=== PATIENT | male | born 1960 | race Caucasian/White ===

== ENCOUNTER 2023-03-04 08:56 | Outpatient (OUT) | payer BC, SELFPAY ==
--- NOTE | 2023-03-04 09:07 | XR_ITS ---
The [address] [address] Patient Name: JATIN KOCH MRN: [id number] date: 1960 Sex: M Assigned Patient Location: [facility] Current Patient Location: [facility] Accession/Order Number: [id number] Exam Date: 03/04/2023 09:20 Report Date: 03/04/2023 09:42 At the request of: JOSÉ LUIS SILVA Procedure: XR thoracic spine 3V EXAMINATION: XR thoracic spine 3V HISTORY: Unspecified Dorsalgia M54.9 ; chronic mid back pain increasing in severity COMPARISON: No relevant comparison available. FINDINGS: BONES: No significant spondylosis, scoliosis, fracture, or visible bony lesion. DISC SPACES: Multilevel mild disc space narrowing and small endplate degenerative osteophytes. PARASPINOUS: Negative. No paraspinous abnormality is seen. OTHER: Negative. XR/XR thoracic spine 3V IMPRESSION: 1. No acute abnormality. 2. Multilevel mild degenerative changes. Electronically authenticated by: ANITA PEDROZA Date: 03/04/2023 09:42
== END 2023-03-04 08:57 | disposition home or self-care (01) ==
LOC: RAD 08:59
PROVIDERS: PCP Family Medicine; Visit Provider Family Medicine
DX: M54.9 Dorsalgia, unspecified (principal)
CPT/HCPCS: 72072

== ENCOUNTER 2023-06-16 09:45 | Outpatient (OUT) | payer BC, SELFPAY ==
--- NOTE | 2023-06-16 09:51 | US_ITS ---
[address] [address] Patient Name: JATIN KOCH MRN: [id number] date: 1960 Sex: M Assigned Patient Location: [facility] Current Patient Location: [facility] Accession/Order Number: [id number] Exam Date: 06/16/2023 10:00 Report Date: 06/16/2023 10:45 At the request of: TING FLORES Procedure: US renal BI EXAMINATION: US renal BI HISTORY: kidney stones, renal cysts COMPARISON: No relevant comparison available. TECHNIQUE: Ultrasound examination was performed of the bladder. FINDINGS: Right Kidney: Normal in size, contour and cortical echotexture. The cortex measures 1.2 cm. Areas of anechoic echogenicity measuring up to 4.2 cm inferior pole, simple cyst. Multiple echogenic foci measuring up to 3 mm, nonobstructing nephrolithiasis. No hydronephrosis. Height: 5.1 cm Length: 11.6 cm Width: 5.1 cm Left Kidney: Normal in size, contour and cortical echotexture. The cortex measures 1.7 cm. No cortical mass, hydronephrosis or obstructing nephrolithiasis Height: 5.5 cm Length: 11.2 cm Width: 4.9 cm Urinary bladder is normal in appearance measuring 294 cc. Ureteral jets not visualized US/US renal BI IMPRESSION: Right nonobstructing nephrolithiasis Electronically authenticated by: FREIDA PEREZ Date: 06/16/2023 10:45
--- NOTE | 2023-06-16 10:00 | XR_ITS ---
[address] [address] Patient Name: JATIN KOCH MRN: [id number] date: 1960 Sex: M Assigned Patient Location: [facility] Current Patient Location: [place] Accession/Order Number: [id number] Exam Date: 06/16/2023 09:55 Report Date: 06/16/2023 11:17 At the request of: TING FLORES Procedure: XR abdomen 1V EXAMINATION: XR abdomen 1V HISTORY: kidney stone COMPARISON: 06/30/2022, ultrasound 06/16/2023 FINDINGS: KIDNEY/URETER - RIGHT: No visible renal or ureteral calcifications. KIDNEY/URETER - LEFT: No visible renal or ureteral calcifications. PELVIS: No visible ureteral calcifications. Any visible calcifications favor phleboliths. BOWEL: No abnormal dilation or deviation. BONES: No acute abnormality. Moderate degenerative changes of the spine and hips OTHER: Negative. No abnormal gaseous collections. XR/XR abdomen 1V IMPRESSION: No definite calcifications seen by plain x-ray Electronically authenticated by: FREIDA PEREZ Date: 06/16/2023 11:17
[2023-06-16 12:39] LABS: Prostate Specific Antigen Dx 0.18 ng/mL (<=4.00)
== END 2023-06-16 09:46 | disposition home or self-care (01) ==
LOC: US 09:45
PROVIDERS: PCP Family Medicine; Visit Provider Physician Assistant
DX: N40.1 Benign prostatic hyperplasia with lower urinary tract symptoms (principal); N20.0 Calculus of kidney; N28.1 Cyst of kidney, acquired
CPT/HCPCS: 36415; 74018; 76775; 84153

== ENCOUNTER 2024-06-22 10:54 | Outpatient (OUT) | payer BC, SELFPAY ==
--- NOTE | 2024-06-22 11:12 | XR_ITS ---
The [address] [address] Patient Name: JATIN KOCH MRN: [id number] date: 1960 Sex: M Assigned Patient Location: [facility] Current Patient Location: [facility] Accession/Order Number: [id number] Exam Date: 06/22/2024 11:05 Report Date: 06/22/2024 12:48 At the request of: JOSÉ LUIS SILVA Procedure: XR chest 2V PROCEDURE: XR chest 2V DATE: 06/22/2024 11:05 AM EST COMPARISONS: 01/20/2010 CLINICAL INDICATION: 63 years Male Chronic Cough FINDINGS: The cardiomediastinal silhouette and pulmonary vasculature are within normal limits. The lungs are clear. There is no evidence of pleural effusion or pneumothorax. XR/XR chest 2V IMPRESSION: Chest radiograph is within normal limits. Electronically authenticated by: ROSANA LYNCH Date: 06/22/2024 12:48
== END 2024-06-22 10:55 | disposition home or self-care (01) ==
LOC: RAD 10:55
PROVIDERS: PCP Family Medicine; Visit Provider Family Medicine
DX: R05.3 Chronic cough (principal)
CPT/HCPCS: 71046

== ENCOUNTER 2024-07-12 10:31 | Emergency (ER) | payer BC, SELFPAY ==
[2024-07-12] VITALS (8 sets, daily range): BP systolic 119–142; BP diastolic 65–82; PULSE 96–109; TEMP 37.6; O2SAT 96–97; BMI 33.5
--- NOTE | 2024-07-12 11:11 | XR_ITS ---
The [address] [address] Patient Name: JATIN KOCH MRN: [id number] date: 1960 Sex: M Assigned Patient Location: ER Current Patient Location: ER Accession/Order Number: [id number] Exam Date: 07/12/2024 11:08 Report Date: 07/12/2024 11:33 At the request of: DEMARCO LAMB Procedure: XR chest 1V EXAMINATION: XR chest 1V HISTORY: cough ; chest pain, shortness of breath COMPARISON: XR chest 06/22/2024 FINDINGS: LUNGS: No significant pulmonary parenchymal abnormalities. VASCULATURE: No increased pulmonary vasculature. PLEURA: No pneumothorax, effusion, or pleural thickening. CARDIAC: No cardiomegaly or cardiac silhouette abnormality. MEDIASTINUM: No visible mass or adenopathy. BONES: No fracture or visible bone lesion. OTHER: Negative. XR/XR chest 1V IMPRESSION: 1. No convincing acute cardiopulmonary process. Electronically authenticated by: ANITA PEDROZA Date: 07/12/2024 11:33
--- OUTSIDE RECORDS SUMMARY | 2024-07-12 11:15 | XMS_ITS | CCD ---
Author Organization [facility] Care Team Providers Care [employer] Safety Engineer Name Role Phone DR JOSÉ LUIS SILVA Admitting Unavailable RICARDO, DR JOSÉ LUIS Patterson Primary Care Unavailable RICARDO, DR JOSÉ LUIS Patterson Consulting Unavailable RICARDO, DR JOSÉ LUIS Patterson Attending Unavailable TING FLORES Attending Unavailable RICARDO, DR JOSÉ LUIS Patterson Primary Care Unavailable ANA, DR FREIDA Lagos Consulting Unavailable SANDRA, TING Admitting Unavailable WEI ASH Consulting Unavailable TING FLORES Consulting Unavailable TING FLORES Attending Unavailable RICARDO, DR JOSÉ LUIS Patterson Primary Care Unavailable SANDRA, TING Admitting Unavailable SANDRA, TING Consulting Unavailable SANDRA, TING Flores Attending Unavailable JOSÉ LUIS SILVA Primary Care Physician Allergies Allergy Classification Reported Allergen(s) Allergy Type Date of Onset Reaction(s) Facility (2 sources) Sulfamethoxazole / Trimethoprim; Translations: [Bactrim] Drug Allergy 07-22-19 21 [facility] Repository (1 source) Pollen; Translations: [Pollen] Propensity to adverse reactions (disorder) [facility] Repository (2 sources) Sulfamethoxazole; Translations: [sulfamethoxazole] Drug Allergy Unknown, Unable to urinate [facility] Repository (1 source) Sulfamethoxazole / Trimethoprim; Translations: [sulfamethoxazole-t rimethoprim] Drug Allergy Unable to void [facility] (1 source) Pollen 1 Allergy to substance Watery eye (finding), Eye swelling (finding) [facility] Comment on above: Pt only has allergy to [place] Pollen Medications Current Medications Medication Drug Class(es) Dates Sig (Normalized) Sig (Original) Ascorbic Acid (1 source) Vitamin C Start: 04-18-2019 Vitamin C Daily, Refills(s) 0 Start Date: 04/18/19 Status: Ordered meloxicam 7.5 mg oral tablet (1 source) Nonsteroidal Anti-inflammatory Drug Start: 06-29-2023 meloxicam 7.5 mg Tab Refills(s) 0 Start Date: 06/29/23 Status: Ordered 24 hr metoprolol succinate 25 mg extended release oral tablet (1 source) beta-Adrenergic Angella Start: 06-29-2023 take 1 tablet by mouth twice daily metoprolol 25 mg ER Tab 25 mg = 1 tab(s), Oral, BID, Refills(s) 0 Start Date: 06/29/23 Status: Ordered Multi Vitamin+ (1 source) Start: 08-15-2019 Multi Vitamin+ Refill(s) 0 Start Date: 08/15/19 Status: Ordered Zinc (1 source) Start: 04-18-2019 take 1 mg by mouth once daily Zinc mg, Oral, Daily, Refills(s) 0 Start Date: 04/18/19 Status: Ordered Problems Active Problems Problem Classification Problem Date Documented Date Episodic/Chronic Abdominal pain (2 sources) Abdominal pain; Translations: [Unspecified abdominal pain] Onset: 06-29-2023 Episodic Calculus of urinary tract (8 sources) Calculus of kidney; Translations: [Personal history of urinary calculi] Onset: 06-21-2022 Episodic Genitourinary symptoms and ill-defined conditions (2 sources) Microscopic hematuria; Translations: [Other microscopic hematuria] Onset: 06-29-2023 Episodic Gout and other crystal arthropathies (1 source) Gout 01-18-2019 Chronic Hyperplasia of prostate (6 sources) Benign prostatic hyperplasia with lower urinary tract symptoms; Translations: [Benign prostatic hypertrophy with outflow obstruction] Onset: 06-17-2022 Chronic Osteoarthritis (1 source) Arthritis 01-18-2019 Chronic Other diseases of kidney and ureters (1 source) Acquired renal cyst without neoplastic change; Translations: [Cyst of kidney, acquired] Onset: 06-29-2023 Episodic Other diseases of kidney and ureters (1 source) Cyst of kidney 06-23-2022 Episodic Other injuries and conditions due to external causes (1 source) Injury of head 01-18-2019 Episodic Other screening for suspected conditions (not mental disorders or infectious disease) (1 source) Encounter for screening for malignant neoplasm of prostate; Translations: [Screening for malignant neoplasm done] Onset: 06-29-2023 Episodic Residual codes; unclassified (1 source) H/O: anticoagulant therapy 04-18-2019 Episodic Screening and history of mental health and substance abuse codes (1 source) Ex-smoker 04-18-2019 Episodic Unclassified (1 source) Patient encounter status 06-29-2023 Past or Other Problems Problem Classification Problem Date Documented Da te Episodic/Chronic Other diseases of kidney and ureters (1 source) Cyst of kidney, acquired; Translations: [CYST OF KIDNEY ACQUIRED] Onset: 07-06-2022 Episodic Results Test Name Value Interpretation Reference Range Facil ity Lab Reportson 06-18-2023 Lab Reports [id number]#1 .00TIFF Normal [facility] RAD - MISCon 06-18-2023 RAD - MISC [id number] .00TIFF Normal [facility] RAD - Ultrasound Reporton RAD - Ultrasound Report [id number] .00TIFF Normal [facility] Physician Orderon 06-01-2023 Physician Order [id number]# 1.00TIFF Normal [facility] CBC AUTO DIFFon 11-10-2022 BASO # 0.1 103/ul Normal 0.0-0.1 [facility] Comment on above: Performed By: #### C BC #### [facility] [address] [place] [address] Dr. Jenny Stone Basophils/100 WBC (Bld) 0.6 % Normal 0.2-2.0 [facility] Comment on above: Performed By: #### C BC #### [facility] [address] [address] [address] Jenny Stone EO # 0.2 103/ul Normal 0.0-0.7 [facility] Comment on above: Performed By: #### C BC #### [facility] [address] [place] [address] Dr. Jenny Stone Eosinophils/100 WBC (Bld) 2.4 % Normal 0.9-7.0 [facility] Comment on above: Performed By: #### C BC #### [facility] [address] [place] [address] Dr. Jenny Stone Erythrocyte distribution width (RBC) [Ratio] 13.0 % Normal 11.0-15.0 [facility] Comment on above: Performed By: #### C BC #### [facility] [address] [place] [address] Dr. Jenny Stone Hematocrit (Bld) [Volume fraction] 46.1 % Normal 42.0-54.0 [facility] Comment on above: Performed By: #### C BC #### [facility] [address] [place] [address] Dr. Jenny Stone Hemoglobin (Bld) [Mass/Vol] 15.2 g/dL Normal 14.0-18.0 [facility] Comment on above: Performed By: #### C BC #### [facility] [address] [place] [address] Dr. Jenny Stone IG # 0.04 10e3/ul Critically high 0.00-0.03 [facility] Comment on above: Performed By: #### C BC #### [facility] [address] [place] [address] Dr. Jenny Stone IG % 0.5 % Normal 0.0-0.5 [facility] Comment on above: Performed By: #### C BC #### [facility] [address] [place] [address] Dr. Jenny Stone LYMPH # 2.5 103/ul Normal 1.2-3.8 [facility] Comment on above: Performed By: #### C BC #### [facility] [address] [place] [address] Dr. Jenny Stone Lymphocytes/100 WBC (Bld) 32.4 % Normal 20.5-60.0 [facility] Comment on above: Performed By: #### C BC #### [facility] [address] [place] [address] Dr. Jenny Stone MANUAL DIFF REQ NO Normal [facility] Comment on above: Performed By: #### C BC #### [facility] [address] [address] [address] Jenny Stone MCH (RBC) [Entitic mass] 29.6 pg Normal 25.9-34.0 [facility] Comment on above: Performed By: #### C BC #### [facility] [address] [address] [address] Jenny Stone MCHC (RBC) [Mass/Vol] 33.0 g/dL Normal 29.9-35.2 [facility] Comment on above: Performed By: #### C BC #### [facility] [address] [address] [address] Jenny Stone MCV (RBC) [Entitic vol] 89.7 fL Normal 80.0-94.0 [facility] Comment on above: Performed By: #### C BC #### [facility] [address] [place] [address] Dr. Jenny Stone MONO # 0.7 103/ul Normal 0.3-0.8 [facility] Comment on above: Performed By: #### C BC #### [facility] [address] [place] [address] Dr. Jenny Stone Monocytes/100 WBC (Bld) 8.6 % Normal 1.7-12.0 [facility] Comment on above: Performed By: #### C BC #### [facility] [address] [address] [address] Jenny Stone NEUT # 4.3 103/ul Normal 1.4-6.5 [facility] Comment on above: Performed By: #### C BC #### [facility] [address] [place] [address] Dr. Jenny Stone Neutrophils/100 WBC (Bld) 55.5 % Normal 43.0-75.0 [facility] Comment on above: Performed By: #### C BC #### [facility] [address] [place] [address] Dr. Jenny Stone Platelet mean volume (Bld) [Entitic vol] 9.9 fL Normal 9.5-13.5 [facility] Comment on above: Performed By: #### C BC #### [facility] [address] [address] [address] Jenny Stone PLT 177 103/ul Normal 150-450 [facility] Comment on above: Performed By: #### C BC #### [facility] [address] [address] [address] Jenny Stone RBC 5.14 106/ul Normal 4.70-6.10 [facility] Comment on above: Performed By: #### C BC #### [facility] [address] [address] [address] Jenny Stone WBC 7.8 103/ul Normal 4.0-11.0 [facility] Comment on above: Performed By: #### C BC #### [facility] [address] [place] [address] Dr. Jenny Stone LIPID PROFILEon 11-10-2022 CHOL-HDL RATIO NORM SEE BELOW Normal [facility] Comment on above: Result Comment: 3.3 - 4.4 LOW RISK 4.4 - 7.1 AVERAGE RISK 7.1 - 11.0 MODERATE RISK >11.0 HIGH RISK Performed By: #### C MP, LIPID #### [facility] [address] [place] [address] Dr. Jenny Stone Cholesterol [Mass/Vol] 203 mg/dL Critically high <=200 [facility] Comment on above: Performed By: #### C MP, LIPID #### [facility] [address] [place] [address] Dr. Jenny Stone Cholesterol in HDL [Mass/Vol] 40 mg/dL Normal 40-60 [facility] Comment on above: Performed By: #### C MP, LIPID #### [facility] [address] [place] [address] Dr. Jenny Stone Cholesterol in LDL [Mass/Vol] 142.2 mg/dL Normal [facility] Comment on above: Performed By: #### C MP, LIPID #### [facility] [address] [place] [address] Dr. Jenny Stone Cholesterol.total/C holesterol in HDL [Mass ratio] 5.1 {ratio} Normal [facility] Comment on above: Performed By: #### C MP, LIPID #### [facility] [address] [address] [address] Jenny Stone HDL NORMAL > or = 60 mg/dl - LO W CARDIOVASCULAR RISK <40 mg/dl - HIGH CARDIOVASCULAR RISK Normal [facility] Comment on above: Performed By: #### C MP, LIPID #### [facility] [address] [address] [address] Jenny Stone LDL CALC NORMAL SEE BELOW Normal [facility] Comment on above: Result Comment: <100 mg/dl OPTIMAL 100 - 129 mg/dl NEAR OR ABOVE OPTIMAL 130 - 159 mg/dl BORDERLINE HIGH 160 - 189 mg/dl HIGH >190 mg/dl VERY HIGH Performed By: #### C MP, LIPID #### [facility] [address] [place] [address] Dr. Jenny Stone Triglyceride [Mass/Vol] 104 mg/dL Normal <=150 [facility] Comment on above: Performed By: #### C MP, LIPID #### [facility] [address] [address] [address] Jenny Stone VLDL CALC 20.8 mg/dL Normal [facility] Comment on above: Performed By: #### C MP, LIPID #### [facility] [address] [place] [address] Dr. Jenny Stone PROF 14(COMP METB)on 023 Albumin [Mass/Vol] 3.9 g/dL Normal 3.4-5.0 [facility] Comment on above: Performed By: #### C MP, LIPID #### [facility] [address] [place] [address] Dr. Jenny Stone Albumin/Globulin [Mass ratio] 1.1 {ratio} Normal [facility] Comment on above: Performed By: #### C MP, LIPID #### [facility] [address] [address] [address] Jenny Stone ALP [Catalytic activity/Vol] 70 U/L Normal 46-116 [facility] Comment on above: Performed By: #### C MP, LIPID #### [facility] [address] [address] [address] Jenny Stone ALT [Catalytic activity/Vol] 39 U/L Normal 16-63 [facility] Comment on above: Performed By: #### C MP, LIPID #### [facility] [address] [address] [address] Jenny Stone Anion gap [Moles/Vol] 14.2 mmol/L Normal [facility] Comment on above: Performed By: #### C MP, LIPID #### [facility] [address] [address] [address] Jenny Stone AST [Catalytic activity/Vol] 23 U/L Normal 15-37 [facility] Comment on above: Performed By: #### C MP, LIPID #### [facility] [address] [address] [address] Jenny Stone Bilirubin [Mass/Vol] 0.3 mg/dL Normal 0.2-1.0 [facility] Comment on above: Performed By: #### C MP, LIPID #### [facility] [address] [address] [address] Jenny Stone Calcium [Mass/Vol] 8.5 mg/dL Normal 8.5-10.1 [facility] Comment on above: Performed By: #### C MP, LIPID #### [facility] [address] [place] [address] Dr. Jenny Stone Chloride [Moles/Vol] 102 mmol/L Normal 98-107 [facility] Comment on above: Performed By: #### C MP, LIPID #### [facility] [address] [address] [address] Jenny Stone CO2 [Moles/Vol] 30.1 mmol/L Normal 21.0-32.0 [facility] Comment on above: Performed By: #### C MP, LIPID #### [facility] [address] [address] [address] Jenny Stone Creatinine [Mass/Vol] 1.00 mg/dL Normal 0.70-1.30 [facility] Comment on above: Performed By: #### C MP, LIPID #### [facility] [address] [address] [address] Jenny Stone EGFR-AF LEBANESE >60 Normal >=60 [facility] Comment on above: Performed By: #### C MP, LIPID #### [facility] [address] [address] [address] Jenny Stone EGFR-NON AF LEBANESE >60 Normal >=60 [facility] Comment on above: Performed By: #### C MP, LIPID #### [facility] [address] [address] [address] Jenny Stone Globulin (S) [Mass/Vol] 3.5 g/dL Normal [facility] Comment on above: Performed By: #### C MP, LIPID #### [facility] [address] [place] [address] Dr. Jenny Stone Glucose [Mass/Vol] 89 mg/dL Normal 74-106 [facility] Comment on above: Performed By: #### C MP, LIPID #### [facility] [address] [place] [address] Dr. Jenny Stone Potassium [Moles/Vol] 4.3 mmol/L Normal 3.5-5.1 [facility] Comment on above: Performed By: #### C MP, LIPID #### [facility] [address] [address] [address] Jenny Stone Protein [Mass/Vol] 7.4 g/dL Normal 6.4-8.2 [facility] Comment on above: Performed By: #### C MP, LIPID #### [facility] [address] [address] [address] Jenny Stone Sodium [Moles/Vol] 142 mmol/L Normal 136-145 [facility] Comment on above: Performed By: #### C MP, LIPID #### [facility] [address] [place] [address] Dr. Jenny Stone Urea nitrogen [Mass/Vol] 17.0 mg/dL Normal 7.0-18.0 [facility] Comment on above: Performed By: #### C MP, LIPID #### [facility] [address] [place], [place] [address] Dr. Jenny Stone Urea nitrogen/Creatinine [Mass ratio] 17.0 mg/mg Normal [facility] Comment on above: Performed By: #### C TITUS LIPID #### [facility] [address] [place], [place] [address] Dr. Jenny Stone RAD - MISCon 07-01-2022 RAD - MISC [id number] .00CD:127 Normal [facility] RAD - Ultrasound Reporton RAD - Ultrasound Report [id number] .00CD:127 Normal [facility] US KIDNEYSon 07-01-2022 US KIDNEYS US KIDNEYS EXAM DATE: 06/30/2022 5:55 AM MST COMPARISON: Ultrasound kidney 05/30/2021 INDICATION: Acquired renal cystic disease. TECHNIQUE: Real-time ultrasound scanning of the kidneys and bladder was performed by the personal secretary. Metal Sash Setter static images are submitted for review. FINDINGS: Right Kidney: The right kidney measures 11 x 5.4 x 4.9 cm and has a volume of 152 mL. Normal echogenicity. No hydronephrosis. Echogenic areas with associated twinkle artifact measures 3.5 x 1.8 x 2.7 mm and 4.7 x 1.4 x 3.0 mm respectively. Inferior pole cyst measures 2.9 x 3.6 x 3.4 cm, previously 4.1 x 3.5 x 3.5 cm. Superior pole cyst measures 1.8 x 1.7 x 2.0 cm, previously 2.4 x 1.9 x 2.3 cm. Renal cortex measures 1.4 cm. Left Kidney: The left kidney measures 10.5 x 5.1 x 4.8 cm and has a volume of 136 mL. Normal echogenicity. No hydronephrosis. No shadowing calculi. No obvious contour deforming lesion or solid renal mass. Renal cortex measures 1.5 cm. Bladder: Bladder volume measures up to 125 cc. No focal or diffuse bladder wall thickening noted. Visualized hepatic parenchyma is echogenic to adjacent renal cortex. IMPRESSION: 1. Nonobstructing right nephrolithiasis. 2. Right renal cysts appear simple. 3. Hepatic steatosis is incidentally noted. Electronically authenticated by: WEI ASH Date: 2022-06-30 23:29 Normal [facility] XR KUB 1 VIEWon 07-01-2022 XR KUB 1 VIEW EXAMINATION: XR KUB 1 VIEW HISTORY: Kidney stone COMPARISON: 05/21/2021 FINDINGS: KIDNEY/URETER - RIGHT: No visible renal or ureteral calcifications. KIDNEY/URETER - LEFT: No visible renal or ureteral calcifications. PELVIS: No visible ureteral calcifications. Any visible calcifications favor phleboliths. BOWEL: No abnormal dilation or deviation. BONES: No acute abnormality. Moderate diffuse degenerative changes OTHER: Negative. No abnormal gaseous collections. IMPRESSION: No definite urinary tract calculi Electronically authenticated by: FREIDA PEREZ Date: 2022-07-01 06:59 Normal [facility] Coding Summary.on 06-25-2022 Coding Summary. CD:[id number] G h0bWw+PGhlYWQ+GK0GVLD hV50spZGydN4MH4aVAQ8Z HAHHLISKCP3BMR8prCJ3S UauQ7PphgJq YmievJRsWM11LHm9KIR6g EfoXWfqkC8whSGnZ2c5Vt AsZT85jD89PYitVXNoNnU 3LjZpbjsgbWFy Y1soGfErvCErVkd+PHRhY mxlIHdpZHRoPScxMDAlJy RimGksCH2tSs4xTZYaARA vbGxhcHNlOiBj r1psEJSvAHnmCG2jtWdfH 1DlzTF5IEWgt5c9Zm41gQ I+LGUrSQI5vKtwVSwxh69 1TlQcm5ubATU1 iNUaGRnlAJC7Q28ef3W4F DLpIIPeHGA1cMX7uC1qsZ heixshB7EbsMYyUjH9KHD 0qCEomD4cnHcq pwupiI2mBht+I27IZO2MK UFEUD7EMwe1C0UxOyrnvH I+OA22GFXwOR70uIHqhCZ xs6bvnDq5QqDw EAVhTMG8rJiqMMnom9XqR PQuX29wcQEik9I4KAYsqW padDDoDwIjoPP9xI8wVTl ddgccl5eplcik Ggaln5kary53eF76A85cH SqcDCQgYRU5KTJaQHDltE hypp6oeV5oGo4+QPtxk5x uh3lvdGy8UmPc UCCrcvUwmMwfLSB1d6NoZ f55V7VexPeyv2SrSyk1ur 79eCHyq5S1pOT7EBsoADN jiD4zOEgmSkK4 YJBmSjUakT46nZCnNDlaH o2vqKrinCawQA4hXCWnsh sqZHLilE5pLYYfhVYpaEl gUA1jFYNjjufu x806VjVeGKJ9SFLzaWJqU 4XhzL2fQfIqEJBhTVKyG2 FmbVFtKPezD573VUhfJdV 8RFXndgFwT8Un FYYftZwlClI8o3F9Qp2Jr 5HjinhhQVQ9SIuiTEHzEi QtJqVkMzF4Z1VjGsv6AMY uvEarBT4bP9Xi PVDjbyjfjemtmYT8FFQqN LCozT12eLIqWXjmUx2hp4 N9j542TFNcPJIkzA07Gx1 udDogMTBwdCBU vD4oqxkhz9qhxqvzVaKvF FDgUXh9RLl7BEYmgRunEb FrBNT5GfT0AST8jVVgqI1 vsZhgonoyzU2d Oyc+T85ocV1vRBT3RPX5v asyNGKxduWoGT50OV38N4 RyPjwvdGFibGU+PGRpdiB zlIqvYN8oEgYt n7etf1FcSUjnX8OqUVOfZ OigAlg3HUJzMBJ4tZD5hB 4hELXlVCxye0L4oLO4U9Q lltSuqp1ek1aa QOUwCSjwU40qoXApl6X8V ABwyPG7FWWmeZynEhCccM 93Oyc+GLGdpKczx8ZkXkp kx6urx8qddSg1 FiFdPUJptyEweAopHCP4e 5XqLg00D14xRIjpFXQbEU EeZHHsOHHrrMpbkr8jyA1 wIi8+PGNvbCB3 xIC6gG0qAPTlSlM9VWhoG 523QbEvvKEhLlbat9wxy0 aywNq6NbNkNBOlvcUukNw aMCJ7w6UnQi07 X70lERrzSJUxSXSkNQGiW NIwoQdajk8qyI6wQb6+PC 9xj4aqfi03rJ75zOM+PHR nNIR6eGklEMtd DSRotO2jLMacBbH8PMTiM mNauE04eYXgEXurOk6xpU fiaFdmMC7lKKGlefnzk80 3EbRkl6ovDUTe kUBcUMgiONO2H52sw9G2C KJwKSIfDYX0eDW9nE1ovO lnbjogbGVmdDsgdmVydGl yCNmrJDecE276 IHRvcDsnPlBhdGllbnQgT wFjENb8B8TmLex9XJOwxM kaKQ4pgRIsUBgmAs1phHe zcQerUD6aGCGb edgyf109AkPew0jvQSDby AFuWYfhCQV1V24ri1P2FM SqTOAvLLY0bWX7kI5zeMt nbjogbGVmdDsg pnUkoDurNMfrKMtqS698I HRvcDsnPkJpcnRoIERhdG R3QO68TA49fHGte3K9xMM 0I7XaIKFjhtay ytqkbFN0RBKwLIQylD71D f8aoWqcBy1kTLFmUEF2RA SxkDXxT2XtfA0tYfXpYAL kFICdP0DuzPRg SKbtD162BSvgQgV6TONay mZbC0KjBNDsxFnaIwV2w4 F7Wj9QB1J1KJ47YN73nAI lr8D7yIB3E7Qx QOJockgpgvqzsWY1CAUbR QSxwG57Zn3fyHccPp0sNR GyGXN0CXYsxOZrV9IgsZ9 yOiAjMDAwMDAw W1OmmQSxLVqbL734GKtfS sN7WJZclxItP8TlSZXooD hvDjT6v7Z9Gc4XAWq9HF3 5AO05sUKce3D2 nIW3U0AwPGZfmdsnusxwg IZ0ROHtUKQhpX31Hu8grI jeAe7oHLMfKOU7GOTukDC rD0LskT2jDbNh QELuBSIxS2NduKHiILpiI 991EVezDhL8RWYbhyVvF2 ZmLXMroZjsYxH5e1D8Lf6 KIQUfEZ60ARP5 pIJ8EL53UT52L8BsLqppd GFibGU+PHRhYmxlIHdpZH RoPScxMDAlJyBzdHlsZT0 tLf6oMEKkVECz dNmflOOlPfExg1ljPGRqO GzoXR9ouYkdS2OfjOD2UR Jlw9l6Gn04I15mU5XrzDV +DISqkDM7tSV5 rL2rVnWuCcM5CBbuJ157R kNycZFyJmqje5wrn5gpkL t1OpN5EEGlsuRiwWodSSZ 0e7TqKs74L16r IHdpZHRoPSIxNSUiIHZhb Qlhla6mlI6jBa9+PGNvbC A6gAM6kZ0iMfUtEgF9CVu qE095TjOnqZEh Rkijy9bfp5epvCx6BmEjT TRgawVicXzmIIN2h9TsYk 09M6KyfSyay2RcQhy2lg7 6sLTbl7Z4aPE7 Y6PzYULvusldiWZqkBjzR L5eUVBtwjrbROJyjJ4tTQ BcJ6l5ZqThGgA6DZojB0S nnfM3MLEavEOq WQebLEB6B03te8Z7PJWhE RUfDVU6jFN6aX9qqIezwe ogbGVmdDsgdmVydGljYWw eJOxgR695MYZv sJwjKYBouS5aVYRfkGXti TajFF3iLHOvrsmlAsHGD2 YUMRJECxBKN8zQLbASXS5 6OZ42eTTsy2N0 pZZ7C1YqLJNrzgzzkjyre ZI4YMWaLHJqpH83vPYlDP rfKd1mh8T6v006XYKqGJL psE19Kq9ubDud LXKfeZMNkL0sqagce9qyz qdaMxVwDGYhREf5VJx3LK NazSvlZxFjSOU7TsD8JLO 4jDIekQ3kqRsz zlamxM1bSbm+MDUvMjIvM Ik8MhkwnOF+CQCfXCK5kO nkTQylFZYnzH1jPXKjO4i 2HlPfLbB8RZco N0NoXYFoncsnUi40gL3xQ rOcWnI8FOtlJ7MsqpL8YQ HmjZSmUFmcLGG2H41kj6X 2TFJxQIWoWIU8 jXL7mN0mzDurpmatgNKtj DsgdmVydGljYWwtYWxpZ2 46IHRvcDsnPjYwIFllYXJ iPY07EY92qWHu y8W9jNR8V3GmHEPppujat oiadFX9TKInWSFmxM35iL OmJHwiDr7tl5F8c687SZI mHILtrI82Kq0q wYyeVHYuuINIiI7wcsqfd 3lezjkxLeQvKBWxOVu6WQ p1TDBxfJvnYvGfWTP9IwV 4JUB3dDJvkR4l nPnaxrauaP5rEuf+TWFsZ TwvdGQ+EPQrWEY0tOhgQY ksQBPtqY1sOCWsP9w0JjY oPgC1VFzgE5Nz OSHwbhqxLt05pQ4rOzOaL zL8KDxeQ0DtwcJ2DJHvqE IyLKgeVLC1K25wv1X7BJE qIJZyFPO7zUV1 bB4noMuqqwqwlBTtgXmkq iTlcUurCPciSBkjB148KL IldTmrFpoiKcIPwn0xJY3 mZjwvdGQ+PC90 xw98E8DvMozaFnc6LBMnD JT5wFW8oU7gTUJsXYssn4 O5kVC2J5TfbxGsyh1mp9g sCBRjZDcoU93q hUErr1U4POAqkNG4LRLjg BgaTpWvkV73Njb+PGNvbG wra9AzGmdbf7xnn4mnhWg 9IjMwJSIgdmFs jLtxTJY7x7YeBt84B99uH HdpZHRoPSIzMCUiIHZhbG juuu0wuE9bRt0+PGNvbCB 6lRD6mE8tYvHq QzA7ERbtJ193AbScvAFyG efaa6qdz4fijTk2CcBhHQ VwvvOrjDzsWVA2o8ZgHv2 2W4ZloZpgo4Yq Rrf2op15iOVua4J2kCE3I 3BhZGRpbmctbGVmdDogMC 1wFOYkdsnwZCBnfH8xDTP gR0j7LyFwAiI4 URddJ4NskpI5MGTqxWTgD APreNMZxH1astspj1cdah inWpYtNAClVSp6FBs1EVD saWduOiBsZWZ0 RrL6YIQ2pZAtmO0bmKmuc qhiwR5xSjr+MHu7v3itxS OoGG1maSZ7KY24UU32lUT bt2H0aHU3I5Yj RQOsnwcddyqmnVT7BBHkW NVvnF18Iz8umPjsGy8xBY JgUXJ4MRNhtJHqK5JoeF5 yOiAjMDAwMDAw U1YdiTJfTHlfQ897RLavM jO4RBMwkbYpT8FxDYGzoH ypLpJ8p9X9Fw4VPF25QB0 3PS21wCAfi3P2 zDJ6W0VxGUZegpsdyhjky AD0PAIyLLNhkL36Ae3fmY daWn9jAYYsNWC1RJTfaRD hK7UhsL8eZbDg JMCkTQAwU6UoqIKxYOkwH 278QSnyRaK9ASFgxtZbB7 OdPWClhMnjGgJ2p0X7Bc6 SKb89YV16QN75 sHFrj9X3tND9N4WeZNPqw xyrfkcqrNV4ZGVnCDGbuN 58Mq1weTgiSw8fCVSxDIB 9PORwwYXyK0Dt uA1cUiPcWAPuQUTzA5Wvi DJuGXxxM167YBhwOkR6QP HdidCyT5IcKHQhfRosPsK 4r8C7Xu0IEBdt zha9Y7SlHdofsXS+PC90Y TZbTI68kWQusWKbq2ybbU m5ItLxEZFoBEF9zRlwNWm js2WyMFKlD14y bGFw (more content not included)... Normal [facility] Vital Signs Date Time Vital Sign Value Performing Clinician David richey 06-29-2023 08:51-0500 Diastolic blood pressure 84 mm[Hg] [facility] 06-29-2023 08:51-0500 Mean blood pressure 107 mm[Hg] TING [facility]OR[facility] 06-29-2023 08:51-0500 Systolic blood pressure 153 mm[Hg] TING [facility]OR[facility] 06-29-2023 08:41-0500 Blood Pressure Location TING [facility]OR[facility] 06-29-2023 08:41-0500 Diastolic blood pressure 87 mm[Hg] TING SANDRA [facility] 06-29-2023 08:41-0500 Heart rate 99 /min TINGGRACIE FLORES [facility] 06-29-2023 08:41-0500 Systolic blood pressure 153 mm[Hg] TINGGRACIE FLORES [facility] Encounters Encounter Date Encounter Type Care Provider Facility Start: 06-29-2023 ambulatory TING FLORES Facili ty:[facility] Start: 06-29-2023 End: 06-29-2023 Patient encounter procedure TING FLORES [facility] Start: 11-11-2022 Encounter for genera l adult medical examination without abnormal findings DR JOSÉ LUIS SILVA [facility] Start: 11-10-2022 End: 11-11-[address] JOSÉ LUIS SILVA Facility:[facility] Start: 11-10-2022 End: 11-11-2022 Encounter for general adult medical examination without abnormal findings DR JOSÉ LUIS SILVA Facility:[facility] Start: 06-30-2022 End: 07-01-2022 ambulatory TING FLORES Facility:[facility] Start: 06-17-2022 End: 06-18-2022 ambulatory TING FLORES Facility:[facility] Procedures Date Procedure Procedure Detail Performing Clinician Start: 06-17-[address] RUDOLPH SILVA Comment on above: Performed By: #### P SAD #### [facility] [address] [place] [address] Dr. Jenny Stone Start: 05-17-2019 Transurethral prostatectomy TING FLORES Start: 12-08-2018 Cystoscopy TING BLACKBURN Colonoscopy TING FLORES Tonsillectomy TING SANDRA Immunizations Immunization Date Immunization Notes Care Provider Pilar hoyttiago 03-16-2022 influenza virus vaccine, unspecified formulation TING FLORES [facility] 04-07-2021 influenza virus vaccine, unspecified formulation TINGQUINTON FLORES [facility] 09-25-2020 SARS-CoV-2 (COVID-19 ) mRNA-1273 vaccine TING FLORES [facility] Comment on above: Result Comment: 2022: 51 08-28-2020 SARS-CoV-2 (COVID-19 ) mRNA-1273 vaccine TINGQUINTON FLORES [facility] 06-14-2020 SARS-CoV-2 (COVID-19 ) mRNA-1273 vaccine TING FLORES [facility] Comment on above: Result Comment: pt alondar mac he is fully vaccinated 04-02-2020 influenza virus vaccine, unspecified formulation TING FLORES [facility] 03-14-2017 influenza virus vaccine, unspecified formulation TING FLORES [facility] Payers Date Payer Category Payer Unknown [id number] 1960 Unknown [id number] 1960 Unknown [id number] 1960 Unknown [id number] 1958 Unknown [id number] Social History Date Type Detail Facility Start: 06-29-2023 Tobacco smoking status Ex-smoker (kathrin loco) [facility] Tobacco smoking status Never [facility] Sex Assigned At Male [facility] Functional Status Date Assessment Result Facility 06-29-2023 Functional Status N/A [facility] Evaluation + Plan note 06-29-2023 Note Date & Type Note Facility 06-29-2023 Evaluation + Plan note Diagnostic Tests PendingPSA Screen, Total 06/29/23 [facility] Hospital Discharge instructions 06-29-2023 Note Date & Type Note Facility 06-29-2023 Hospital Discharg e instructions Patient Education 06/29/2023 09:10:43 Kidney Stones, Izna-zc-Euis Kidney Stones Kidney stones are rock-like masses that form inside of the kidneys. Kidneys are organs that make pee (urine). A kidney stone may move into other parts of the urinary tract, including: The tubes that connect the kidneys to the bladder (ureters). The bladder. The tube that carries urine out of the body (urethra). Kidney stones can cause very bad pain and can block the flow of pee. The stone usually leaves your body (passes) through your pee. You may need to have a doctor take out the stone. What are the causes? Kidney stones may be caused by: A condition in which certain glands make too much parathyroid hormone (primary hyperparathyroidism). A buildup of a type of crystals in the bladder made of a chemical called uric acid. The body makes uric acid when you eat certain foods. Narrowing (stricture) of one or both of the ureters. A kidney blockage that you were born with. Past surgery on the kidney or the ureters, such as gastric bypass surgery. What increases the risk? You are more likely to develop this condition if: You have had a kidney stone in the past. You have a family history of kidney stones. You do not drink enough water. You eat a diet that is high in protein, salt (sodium), or sugar. You are overweight or very overweight (obese). What are the signs or symptoms? Symptoms of a kidney stone may include: Pain in the side of the belly, right below the ribs (flank pain). Pain usually spreads (radiates) to the groin. Needing to pee often or right away (urgently). Pain when going pee (urinating). Blood in your pee (hematuria). Feeling like you may vomit (nauseous). Vomiting. Fever and chills. How is this treated? Treatment depends on the size, location, and makeup of the kidney stones. The stones will often pass out of the body through peeing. You may need to: Drink more fluid to help pass the stone. In some cases, you may be given fluids through an IV tube put into one of your veins at the hospital. Take medicine for pain. Make changes in your diet to help keep kidney stones from coming back. Sometimes, medical procedures are needed to remove a kidney stone. This may involve: A procedure to break up kidney stones using a beam of light (laser) or shock waves. Surgery to remove the kidney stones. Follow these instructions at home: Medicines Take [id number] and prescription medicines only as told by your doctor. Ask your doctor if the medicine prescribed to you requires you to avoid driving or using heavy machinery. Eating and drinking Drink enough fluid to keep your pee pale yellow. You may be told to drink at least 8 10 glasses of water each day. This will help you pass the stone. If told by your doctor, change your diet. This may include: ?Limiting how much salt you eat. ?Eating more fruits and vegetables. ?Limiting how much meat, poultry, fish, and eggs you eat. Follow instructions from your doctor about eating or drinking restrictions. General instructions Collect pee samples as told by your doctor. You may need to collect a pee sample: ?24 hours after a stone comes out. ?8 12 weeks after a stone comes out, and every 6 12 months after that. Strain your pee every time you pee (urinate), for as long as told. Use the strainer that your doctor recommends. Do not throw out the stone. Keep it so that it can be tested by your doctor. Keep all follow-up visits as told by your doctor. This is important. You may need follow-up tests. How is this prevented? To prevent another kidney stone: Drink enough fluid to keep your pee pale yellow. This is the best way to prevent kidney stones. Eat healthy foods. Avoid certain foods as told by your doctor. You may be told to eat less protein. Stay at a healthy weight. Where to find more information National Kidney Foundation (NKF): www.kidney.org [facility] [employer] [facility] (F): www.urologyhealth.org Contact a doctor if: You have pain that gets worse or does not get better with medicine. Get help right away if: You have a fever or chills. You get very bad pain. You get new pain in your belly (abdomen). You pass out (faint). You cannot pee. Summary Kidney stones are rock-like masses that form inside of the kidneys. Kidney stones can cause very bad pain and can block the flow of pee. The stones will often pass out of the body through peeing. Drink enough fluid to keep your pee pale yellow. This information is not intended to replace advice given to you by your health care provider. Make sure you discuss any questions you have with your health care provider. Document Revised: 02/02/2022 Document Reviewed: 02/02/2022 [employer] Patient Education 2022 [employer]. Follow Up Care 06/23/2022 09:07:35 With:TING FLORES PA-C, URL Address: [address] [place] [address] [phone] When: Unknown Comments:1.5 yr w/ PSA, KUB, and DAWIT [facility] Hospital course Narrative Note Date & Type Note Facility Hospital course Narrative No data available for this section [facility] Progress note Note Date & Type Note Facility Progress note No data available for this section [facility] Summary Purpose Family History No Family History Records FoundNo Family History Records Found No data available for this section Advance Directives No Advanced Directives Records FoundNo Advanced Directives Records Found Additional Source Comments (unrecognized sect ion and content) No Status Records FoundNo Status Records Found INFORMATION SOURCE (unrecogn ized section and content) DATE CREATED AUTHOR 11/20/2022 [facility] DATE CREATED AUTHOR AUTHOR'S MONA ATLEILA 06/23/2023 [facility] Patient Care team informterry n (unrecognized section and content) Personnel Name: JOSÉ LUIS SILVA MD Address: Address: [address] [place] [address] FOR RECORDS PERTAINING TO PATIENTS WHO ARE OR HAVE BEEN ENROLLED IN A CHEMICAL DEPENDENCY/SUBSTANCEABUSE PROGRAM, SOME INFORMATION MAY BE OMITTED. This clinical summary was aggregated from multiple sources. Caution should be exercised in using it in the provision of clinical care. This summary normalizes information from multiple sources, and as a consequence, information in this document may materially change the coding, format and clinical context of patient data. In addition, data may be omitted in some cases. CLINICAL DECISIONS SHOULD BE BASED ON THE PRIMARY CLINICAL RECORDS. [facility]. provides no warranty or guarantee of the accuracy or completeness of information in this document.
[2024-07-12 11:36] LABS: Influenza Virus A Antigen Negative; Influenza Virus B Antigen Negative; Internal Control Within Normal Limits
[2024-07-12 11:43] LABS: Internal Control Within Normal Limits; SARS-CoV-2 Ag POSITIVE (NEGATIVE)
--- NOTE | 2024-07-12 11:47 | ECG_ITS ---
The [facility] Test Date: 2024-07-12 Pat Name: JATIN KOCH Department: Room: - Gender: Male Rn Vascular: : 1960 Requested By: [id number] Order Number: [id number] Reading MD: ELMER KATZ Measurements Intervals [place] Rate: 103 P: 65 NC: 174 QRS: 64 QRSD: 126 T: 57 QT: 342 QTc: 402 Interpretive Statements 1120 Sinus tachycardia 2450 Right bundle branch block 9150 abnormal ECG No previous ECG available for comparison Electronically Signed On 07-13-2024 6:57:02 EST by ELMER KATZ
--- NOTE | 2024-07-12 11:50 | ED.CHESTPAI1 ---
HPI - Chest Pain General Chief Complaint: Chest Pain Stated Complaint: CHEST PAIN Time Seen by Provider: 07/12/24 10:55 History of Present Illness HPI narrative: Patient presents ED complaining of cough and some chest tightness. He said he has had a cough on and off since he started his new blood pressure medication which is metoprolol. However since yesterday he has felt worse. He does complain of some bodyaches. He also states when he tries to take a deep breath in he has some left-sided chest pressure that triggers a cough. He does not have pain with breathing he just said it triggers a cough so he feels like he cannot take a deep breath. He then started to have some pain radiating into the neck. He was concerned given his age and his history of high blood pressure so he came in for further evaluation. He has a low-grade fever here at 99.7. He does have a cough throughout talking to him and the room. He is alert and oriented no acute distress. No other complaints at this time. Related Data Allergies Allergy/AdvReac Type Severity Reaction Status Date / Time sulfamethoxazole (From AdvReac Severe Unknown Verified 07/12/24 10:54 Bactrim) trimethoprim (From Bactrim) AdvReac Severe Unknown Verified 07/12/24 10:54 Review of Systems ROS Status of ROS 10 or more systems reviewed and unremarkable except as noted in history and below PFSH PFSH Social History Little interest or pleasure in doing things: not at all Feeling down, depressed, or hopeless: not at all Exam Narrative Exam Narrative: Time Seen: [] Vital Signs: [Per nurse's notes.] General: [Alert] Skin: [Warm, dry, no rash.] Head: [Normocephalic, atraumatic.] Neck: [Supple, trachea midline.] Eye: [Pupils are equal, round and reactive to light, extraocular movements are intact, normal conjunctiva.] Ears, nose, mouth and throat: oral mucosa moist. Cardiovascular: [Regular rate and rhythm, no murmur.] Respiratory: [Mild diminished breath sounds bases and mild wheezing bilaterally, respirations are non-labored, breath sounds are equal.] Chest wall: [No tenderness, no deformity.] Gastrointestinal: [Soft, nontender, non distended, normal bowel sounds.] MSK: 5 out of 5 muscle strength x 4 extremities no calf pain or edema Psychiatric: [Cooperative, appropriate mood & affect.] Neurological: [Alert and oriented to person, place, time, and situation, no focal neurological deficit observed.] Constitutional Vital Signs, click to edit/add: Last Vital Signs Temp 99.7 F 07/12/24 10:55 Pulse 96 H 07/12/24 11:44 Resp 18 07/12/24 11:44 BP 123/82 07/12/24 11:44 Pulse Ox 97 07/12/24 11:44 O2 Del Method Room Air 07/12/24 11:44 Course Vital Signs Vital signs: Vital Signs Temperature 99.7 F 07/12/24 10:55 Pulse Rate 106 H 07/12/24 10:55 Respiratory Rate 18 07/12/24 10:55 Blood Pressure 119/72 07/12/24 10:55 Pulse Oximetry 96 07/12/24 10:55 Oxygen Delivery Method Room Air 07/12/24 10:55 Temperature 99.7 F 07/12/24 10:55 Pulse Rate 96 H 07/12/24 11:44 Respiratory Rate 18 07/12/24 11:44 Blood Pressure 123/82 07/12/24 11:44 Pulse Oximetry 97 07/12/24 11:44 Oxygen Delivery Method Room Air 07/12/24 11:44 MDM - Chest Pain MDM Narrative Medical decision making narrative: Patient's labs are positive for COVID. Troponin negative x 1. Vital signs stable. Most likely the cough and chest pressure and chest pain are caused from the COVID. EKG does not show any acute ST elevation or depression. States his at home is sick with similar symptoms. Patient instructed to use Tylenol Motrin fluids and rest. Return to ED if worsening symptoms or further concerns. Otherwise follow-up with family doctor if needed. Patient stable and comfortable care plan for home Differential Diagnosis Differential diagnosis: Likely stable angina, atypical chest pain, chest pain and other (Flu COVID) Lab Data Attestation: I reviewed the patient's lab results. Labs: Lab Results 07/12/24 07/12/24 Range/Units 11:06 11:10 WBC 11.9 H (4.0-11.0) 10^3/uL RBC 4.22 L (4.70-6.10) 10^6/uL Hgb 12.3 L (14.0-18.0) g/dL Hct 37.9 L (42.0-54.0) % MCV 89.8 (80.0-94.0) fL MCH 29.1 (25.9-34.0) pg MCHC 32.5 (29.9-35.2) g/dL RDW 12.6 (11.0-15.0) % Plt Count 230 (150-450) 10^3/uL MPV 10.1 (9.5-13.5) fL Neut % (Auto) 69.7 (43.0-75.0) % Lymph % (Auto) 18.9 L (20.5-60.0) % [place] % (Auto) 8.9 (1.7-12.0) % Eos % (Auto) 1.6 (0.9-7.0) % Baso % (Auto) 0.4 (0.2-2.0) % Neut # (Auto) 8.3 H (1.4-6.5) 10^3/uL Lymph # (Auto) 2.2 (1.2-3.8) 10^3/uL [place] # (Auto) 1.1 H (0.3-0.8) 10^3/uL Eos # (Auto) 0.2 (0.0-0.7) 10^3/uL Baso # (Auto) 0.1 (0.0-0.1) 10^3/uL Abs Immat Gran (auto) 0.06 H (0.00-0.03) 10^3/uL Imm/Tot Granulo (auto) 0.5 (0.0-0.5) % Sodium 140 (136-145) mmol/L Potassium 4.0 (3.5-5.1) mmol/L Chloride 103 (98-107) mmol/L Carbon Dioxide 26.1 (21.0-32.0) mmol/L Anion Gap 14.9 BUN 11.0 (7.0-18.0) mg/dL Creatinine 1.14 (0.70-1.30) mg/dL Est GFR ( Amer) >60 (>=60 mL/min/1.73m^2) Est GFR (Non-Af Amer) >60 (>=60 mL/min/1.73m^2) BUN/Creatinine Ratio 9.6 Glucose 124 H (74-106) mg/dL Calcium 8.8 (8.5-10.1) mg/dL Total Bilirubin 0.3 (0.2-1.0) mg/dL AST 13 L (15-37) U/L ALT 21 (16-63) U/L Alkaline Phosphatase 65 (46-116) U/L Troponin I High Sens 6.6 (4.0-76.1) pg/mL Total Protein 7.4 (6.4-8.2) g/dL Albumin 3.5 (3.4-5.0) g/dL Globulin 3.9 g/dL Albumin/Globulin Ratio 0.9 Influenza Type A Ag Negative Influenza Type B Ag Negative SARS-CoV-2 Ag (CV2AG) Positive A (NEGATIVE) Imaging Data Chest x-ray: Radiologist's impression: ITS Impressions Chest X-Ray 07/12/24 11:11 IMPRESSION: 1. No convincing acute cardiopulmonary process. Electronically authenticated by: ANITA PEDROZA Date: 07/12/2024 11:33 ECG Data Attestation: I personally reviewed and interpreted this ECG as follows: Interpretation: EKG INTERPRETATION Time: [] 1101 Rate: [] 103 Rhythm: _ [] Sinus tachycardia ST segments: _ [] Right bundle branch block, no acute ST elevation or depression T waves: _ [] Ectopy: _ [] P wave/AL interval: _ [] QRS interval: _ [] QT interval: _ [] Comparison: _ [] Comparison EKG date: [] Performed by: [self] Heart Score History: Slightly/Non-Suspicious ECG: Normal Age: >45-<65 years Risk Factors: 1 or 2 Risk Factors Troponin: <Normal Limit Total Heart Score Recommendations & Risks:: 2 Discharge Plan Discharge Chief Complaint: Chest Pain Clinical Impression: COVID-19 Patient Disposition: Home, Self-Care Time of Disposition Decision: 12:30 Condition: Good Mode of Transportation: Private Vehicle Print Language: Kinyarwanda Instructions: COVID-19 (Coronavirus Disease 2019) (ED) Referrals: JOSÉ LUIS SILVA [Primary Care Provider] - 1 week
[2024-07-12 11:52] LABS: Basophils Absolute Auto 0.1 10^3/uL (0.0-0.1); Basophils Percent Auto 0.4 % (0.2-2.0); Eosinophils Absolute Auto 0.2 10^3/uL (0.0-0.7); Eosinophils Percent Auto 1.6 % (0.9-7.0); Hematocrit 37.9 % (42.0-54.0); Hemoglobin 12.3 g/dL (14.0-18.0); Immature Granulocytes Abs Auto 0.06 10^3/uL (0.00-0.03); Immature Granulocytes Pct Auto 0.5 % (0.0-0.5); Lymphocytes Absolute Auto 2.2 10^3/uL (1.2-3.8); Lymphocytes Percent Auto 18.9 % (20.5-60.0); Mean Corpuscular HGB Conc 32.5 g/dL (29.9-35.2); Mean Corpuscular Hemoglobin 29.1 pg (25.9-34.0); Mean Corpuscular Volume 89.8 fL (80.0-94.0); Mean Platelet Volume 10.1 fL (9.5-13.5); Monocytes Absolute Auto 1.1 10^3/uL (0.3-0.8); Monocytes Percent Auto 8.9 % (1.7-12.0); Neutrophils Absolute Auto 8.3 10^3/uL (1.4-6.5); Neutrophils Percent Auto 69.7 % (43.0-75.0); Platelet Count 230 10^3/uL (150-450); Red Blood Count 4.22 10^6/uL (4.70-6.10); Red Cell Distribution Width 12.6 % (11.0-15.0); White Blood Count 11.9 10^3/uL (4.0-11.0)
[2024-07-12 12:11] LABS: Alanine Aminotransferase 21 U/L (16-63); Albumin Globulin Ratio 0.9; Albumin Level 3.5 g/dL (3.4-5.0); Alkaline Phosphatase 65 U/L (46-116); Anion Gap 14.9; Aspartate Amino Transferase 13 U/L (15-37); BUN Creatinine Ratio 9.6; Bilirubin Total 0.3 mg/dL (0.2-1.0); Calcium 8.8 mg/dL (8.5-10.1); Carbon Dioxide 26.1 mmol/L (21.0-32.0); Chloride 103 mmol/L (98-107); Estimated GFR (African America >60 (>=60 mL/min/1.73m^2); Estimated GFR (Non-African Ame >60 (>=60 mL/min/1.73m^2); Globulin 3.9 g/dL; Glucose 124 mg/dL (74-106); Sodium 140 mmol/L (136-145); Total Protein 7.4 g/dL (6.4-8.2); Troponin I High Sensitivity 6.6 pg/mL (4.0-76.1)
== END 2024-07-12 13:23 | disposition home or self-care (01) ==
PROVIDERS: Emergency Provider Emergency Medicine; PCP Family Medicine
DX: U07.1 COVID-19 (principal); I10 Essential (primary) hypertension; Z79.899 Other long term (current) drug therapy
CPT/HCPCS: 36415; 71045; 80053; 84484; 85025; 87804; 87811; 93005; 99285

== ENCOUNTER 2024-10-06 09:21 | Outpatient (OUT) | payer BC, SELFPAY ==
--- NOTE | 2024-10-06 09:23 | CT_ITS ---
The [address] [address] Patient Name: JATIN KOCH MRN: [id number] date: 1960 Sex: M Assigned Patient Location: CT Current Patient Location: CT Accession/Order Number: [id number] Exam Date: 10/06/2024 10:28 Report Date: 10/06/2024 10:33 At the request of: CHIP CARBAJAL DO Procedure: CT chest wo con CT CHEST WITHOUT IV CONTRAST: CLINICAL HISTORY: Chronic Cough COMPARISON: Chest 07/12/2024 TECHNIQUE: Spiral images were obtained through the chest without IV contrast. This CT exam was performed using one or more following dose reduction techniques: Automated exposure control, adjustment of the mA and/or kV according to patient size, or use of iterative reconstruction technique. FINDINGS: Mediastinum:Thoracic aorta appears normal in caliber. Pulmonary trunk appears nondilated. No pleural effusion. Prominent to enlarged mediastinal and right hilar lymph nodes. The esophagus is grossly unremarkable. Lungs:A mass is noted involving the superior segment of the right lower lobe extending into the subcarinal region measuring approximately 7.1 x 4.8 x 5.7 cm. There is presumed postobstructive atelectasis involving the right lower lobe. There is also associated tree-in-bud nodularity possibly represent endobronchial spread. Left lung appears clear. No pneumothorax. Trace right-sided pleural effusion. Abd:No acute findings. Soft tissues/Bones: No acute findings. Osseous structures demonstrate degenerative change. Posterior osteophytes are seen throughout the lumbar spine causing mild canal stenosis. CT/CT chest wo con IMPRESSION: A mass is noted involving the superior segment of the right lower lobe extending into the subcarinal region measuring approximately 7.1 x 4.8 x 5.7 cm. There is presumed postobstructive atelectasis involving the right lower lobe as well as tree-in-bud nodularity possibly represent endobronchial spread. There also appears to be prominent to enlarged mediastinal and right hilar lymph nodes suspicious for local metastatic disease. Further evaluation with PET/CT and tissue sampling is suggested as underlying malignancy is suspected. Impression dictated by: Neftali Lewis Jr. DRockyORocky 10/06/2024 10:33 AM Dictation Location: [place] [address] Electronically authenticated by: [id number] Y Date: 10/06/2024 10:33
== END 2024-10-06 09:22 | disposition home or self-care (01) ==
LOC: CT 09:21
PROVIDERS: PCP Family Medicine; Visit Provider Internal Medicine
DX: R05.3 Chronic cough (principal); R91.8 Other nonspecific abnormal finding of lung field
CPT/HCPCS: 71250

== ENCOUNTER 2024-10-06 18:20 | Inpatient (IN) | payer BC, SELFPAY ==
[2024-10-06] VITALS (26 sets, daily range): BP systolic 111–120; BP diastolic 61–72; PULSE 98–120; TEMP 36.8–37.9; O2SAT 91–98; BMI 29.6; BMI 29.4
--- NOTE | 2024-10-06 18:32 | ECG_ITS ---
The [facility] Test Date: 2024-10-06 Pat Name: JATIN KOCH Department: Room: - Gender: Male Clerical Order Filler: : 1960 Requested By: [id number] Order Number: [id number] Reading MD: AGATHA SALAZAR M.D. Measurements Intervals [place] Rate: 118 P: -48 MO: 146 QRS: 68 QRSD: 126 T: 41 QT: 332 QTc: 402 Interpretive Statements Atrial tachycardia 2450 Right bundle branch block 9150 abnormal ECG Compared to ECG 07/12/2024 11:01:29 Atrial tachycardia has replaced sinus tachycardia Electronically Signed On 10-06-2024 19:09:08 EDT by AGATHA SALAZAR M.D.
--- NOTE | 2024-10-06 19:00 | ED.GENADUL1 ---
Documented by User: [email or web address] Graham 10/06/24 20:07 HPI HPI - General Adult General Chief complaint: Chest Pain Stated complaint: shortness of breath, chest pains Time Seen by Provider: 10/06/24 18:31 Source: patient and family Mode of arrival: Wheelchair Limitations: no limitations History of Present Illness HPI narrative: Patient is a 63-year-old male who presents to the ER with worsening shortness of breath and intermittent chest pain. Patient notes his symptoms started in June when he was diagnosed with COVID, patient states that he was diagnosed with influenza and feels as he is a never recovered. He has a former smoking history since the age of 19 quitting in 2017. Patient notes he has felt fatigued weak and short of breath on exertion that has been worsening over the past 3 months with these illnesses. He was vaccinated for influenza and COVID this season. He denies any hemoptysis states he has a harsh cough without production he recently was treated with azithromycin and earlier this week finished a prednisone taper that involved 60 mg down to 40 and then down to 20. [address] Feliciano and underwent contrast chest CT today for further evaluation as his previous chest x-rays have looked unremarkable. Patient does not know those results and his PCP is Dr. Alina Ragland out of [place]. Currently using an albuterol inhaler and Breo TZ Aerosphere inhaler without notable relief. Patient states he briefly felt better overall on the oral steroid but now feels weak and short of breath again. He denies any known cardiac history. Spouse at bedside noted that his pulse ox at home was 88% prompting her to bring him into the ER. Onset (ago): month(s) (3) Quality: Reports stabbing and sharp Pain Consistency: Reports intermittent Relieving factors: Reports none Exacerbating factors: Reports movement Related Data Home Medications ?Medication ?Instructions ?Recorded ?Confirmed albuterol sulfate 90 mcg/actuation 2 puff inhalation Q4H PRN 10/06/24 10/06/24 aerosol inhaler shortness of breath or wheezing budesonide 160 mcg-glycopyr 9 2 inh inhalation BID 10/06/24 10/06/24 mcg-formot 4.8 mcg/actuation HFA inhaler (Breztri Aerosphere) cyclobenzaprine 10 mg tablet 10 mg PO .qhs 10/06/24 10/06/24 meloxicam 7.5 mg tablet 7.5 mg PO QDAY 10/06/24 10/06/24 metoprolol succinate 50 mg 50 mg PO QDAY 10/06/24 10/06/24 tablet,extended release 24 hr Allergies Allergy/AdvReac Type Severity Reaction Status Date / Time sulfamethoxazole (From AdvReac Severe Unknown Verified 10/06/24 18:40 Bactrim) trimethoprim (From Bactrim) AdvReac Severe Unknown Verified 10/06/24 18:40 Opioid HPI Opioid Management Most Recent Opioid Data: Last Pain Scale 4 10/06/24 20:25 10/06/24 Review of Systems ROS Constitutional Reports: fever (100.2 on arrival ); Denies: chills Eyes Denies: change in vision Ears, nose, mouth, and throat Denies: throat pain or neck pain Cardiovascular Reports: chest pain and shortness of breath with exertion; Denies: palpitations, edema or leg pain with exertion Respiratory Reports: shortness of breath and cough; Denies: wheezing or change in phlegm color Gastrointestinal Denies: abdominal pain or nausea Genitourinary Denies: painful urination or urinary frequency Musculoskeletal Denies: back pain, neck pain, extremity pain, extremity swelling or joint pain Integumentary/Breast Denies: rash, itching, redness, skin pain, skin tenderness or skin swelling Neurological Reports: other (generalized weakness and fatigue); Denies: headache or numbness in extremities Psychiatric Denies: anxiety Endocrine Denies: excessive urination Hematologic/Lymphatic Denies: easy bruising PFSH PFSH Social History Little interest or pleasure in doing things: not at all Feeling down, depressed, or hopeless: not at all Exam Narrative Exam Narrative: Nurses notes and vital signs reviewed and patient is not hypoxic. General: The patient appears fatigued, short of breath with any exertion. Resting comfortably supine with minimal elevation of the head of the bed. Skin: Warm, dry, no pallor noted. Fair complected but no pallor. Head: Normocephalic, atraumatic Neck: Supple, trachea mid-line, no tenderness, no lymphadenopathy Eye: Pupils are equal, round and reactive to light, EOMI no subconjunctival pallor. Ears, Nose, Mouth, and Throat: Bilateral TMs appear minimally injected but no middle ear effusion. oral mucosa is moist, no posterior oropharynx erythema or hypertrophy, uvula is mid-line, mouth appears dry. Cardiovascular: Regular Rate and Rhythm Respiratory: Patient is in no distress, no accessory muscle use, lungs are clear to auscultation, diminished in the bases, no wheezing, rales or rhonchi. Chest Wall: no tenderness, chest present intermittently for past 3 months. Back: non-tender, no CVA tenderness Musculoskeletal: normal ROM, no tenderness, no swelling, negative Homans bilateral GI: Normal bowel sounds, no tenderness to palpation, no masses appreciated. No rebound, guarding, or rigidity noted. Neurological: A&O x4 Psychiatric: Cooperative Constitutional Vital Signs, click to edit/add: Last Vital Signs Temp 98.3 F 10/06/24 21:13 Pulse 104 H 10/06/24 22:20 Resp 25 H 10/06/24 22:20 BP 111/61 10/06/24 22:00 Pulse Ox 91 L 10/06/24 22:20 O2 Del Method Room Air 10/06/24 18:40 Course Vital Signs Vital signs: Vital Signs Temperature 100.2 F 10/06/24 18:40 Pulse Rate 118 H 10/06/24 18:40 Respiratory Rate 16 10/06/24 18:40 Blood Pressure 120/66 10/06/24 18:40 Pulse Oximetry 96 10/06/24 18:40 Oxygen Delivery Method Room Air 10/06/24 18:40 Temperature 98.3 F 10/06/24 21:13 Pulse Rate 104 H 10/06/24 22:20 Respiratory Rate 25 H 10/06/24 22:20 Blood Pressure 111/61 10/06/24 22:00 Pulse Oximetry 91 L 10/06/24 22:20 Oxygen Delivery Method Room Air 10/06/24 18:40 Medical Decision Making MDM Narrative Medical decision making narrative: Presents tachycardic, pulse ox mid 90 intermittent chest pain with significant exertional shortness of breath. I was able to review his noncontrast chest CT from this morning showing a mass in the superior segment of the right lower lobe extending to the subcarinal region. There is postobstructive atelectasis in the right lower lobe as a result. Prominent enlarged mediastinal and right hilar lymph nodes suspicious for local metastatic disease. Patient's symptoms over time, negative chest x-rays his checks x-rays were personally reviewed. With the potential for lung cancer in the differential and his vitals and symptoms I strongly recommend a CTA of the chest to rule out PE. Patient verbally consenting and agreeable at bedside with regards to ongoing treatment and management of symptoms. His blood pressure is stable but he will be hydrated with IV fluids. Patient noting some return of chest pain awaiting CTA of the chest with labs pending for renal function per protocol from radiology. Patient will be given 2 mg IV morphine. He previously declined a narcotic cough syrup given his continued cough. Medical Records Medical records reviewed: Yes I reviewed the patient's medical records Medical records narrative: IMPRESSION: A mass is noted involving the superior segment of the right lower lobe extending into the subcarinal region measuring approximately 7.1 x 4.8 x 5.7 cm. There is presumed postobstructive atelectasis involving the right lower lobe as well as tree-in-bud nodularity possibly represent endobronchial spread. There also appears to be prominent to enlarged mediastinal and right hilar lymph nodes suspicious for local metastatic disease. Further evaluation with PET/CT and tissue sampling is suggested as underlying malignancy is suspected Lab Data Labs: Lab Results 10/06/24 Range/Units 18:12 WBC 22.2 H (4.0-11.0) 10^3/uL RBC 4.78 (4.70-6.10) 10^6/uL Hgb 13.4 L (14.0-18.0) g/dL Hct 41.3 L (42.0-54.0) % MCV 86.4 (80.0-94.0) fL MCH 28.0 (25.9-34.0) pg MCHC 32.4 (29.9-35.2) g/dL RDW 14.3 (11.0-15.0) % Plt Count 333 (150-450) 10^3/uL MPV 9.3 L (9.5-13.5) fL Seg Neuts % (Manual) 74.0 (43.0-75.0) Lymphocytes % (Manual) 17.0 L (20.5-60.0) % Monocytes % (Manual) 6.0 (1.7-12.0) % Eosinophils % (Manual) 2.0 (0.9-7.0) % Basophils % (Manual) 1.0 (0.2-2.0) % Neutrophils # (Manual) 16.42 H (1.4-6.5) 10^3/uL Lymphocytes # (Manual) 3.77 (1.20-3.80) 10^3/uL Monocytes # (Manual) 1.33 H (0.30-0.80) 10^3/uL Eosinophils # (Manual) 0.44 (0.00-0.70) 10^3/uL Basophils # (Manual) 0.22 H (0.00-0.10) 10^3/uL PT 11.8 H (9.0-11.6) sec INR 1.13 APTT 28.5 (22.3-36.2) sec Sodium 134 L (136-145) mmol/L Potassium 4.5 (3.5-5.1) mmol/L Chloride 94 L (98-107) mmol/L Carbon Dioxide 28.9 (21.0-32.0) mmol/L Anion Gap 15.6 BUN 19.0 H (7.0-18.0) mg/dL Creatinine 1.15 (0.70-1.30) mg/dL Est GFR ( Amer) >60 (>=60 mL/min/1.73m^2) Est GFR (Non-Af Amer) >60 (>=60 mL/min/1.73m^2) BUN/Creatinine Ratio 16.5 Glucose 99 (74-106) mg/dL Lactate 1.3 (0.4-2.0) mmol/L Calcium 10.1 (8.5-10.1) mg/dL Total Bilirubin 0.9 (0.2-1.0) mg/dL AST 26 (15-37) U/L ALT 120 H (16-63) U/L Alkaline Phosphatase 128 H (46-116) U/L Troponin I High Sens 5.6 (4.0-76.1) pg/mL NT-Pro-B Natriuret Pep 121.0 (<=900.0) pg/mL Total Protein 7.9 (6.4-8.2) g/dL Albumin 2.9 L (3.4-5.0) g/dL Globulin 5.0 g/dL Albumin/Globulin Ratio 0.6 TSH & Free T4 Interp 0.887 (0.358-3.740) uIU/mL ECG Data Attestation: I personally reviewed and interpreted this ECG as follows: Interpretation: EKG interpretation: Emergency Department physician interpretation, sinus tachycardia 118 bpm, no ectopy, no ST segment elevation, right bundle duc block, slight ST depression in V5 and V6 unchanged from prior EKG on July 12, 2024 showing sinus tachycardia 103 bpm with right bundle branch block. Discharge Plan Discharge Chief Complaint: Chest Pain Clinical Impression: Pneumonia, Mass of right lung, KERR (dyspnea on exertion) Patient Disposition: Admitted as Observation Time of Disposition Decision: 23:00 Documented by User: Robert Jeffrey 10/06/24 23:01 HPI HPI - General Adult General Chief complaint: Chest Pain Stated complaint: shortness of breath, chest pains Time Seen by Provider: 10/06/24 18:31 Related Data Home Medications ?Medication ?Instructions ?Recorded ?Confirmed albuterol sulfate 90 mcg/actuation 2 puff inhalation Q4H PRN 10/06/24 10/06/24 aerosol inhaler shortness of breath or wheezing budesonide 160 mcg-glycopyr 9 2 inh inhalation BID 10/06/24 10/06/24 mcg-formot 4.8 mcg/actuation HFA inhaler (Breztri Aerosphere) cyclobenzaprine 10 mg tablet 10 mg PO .qhs 10/06/24 10/06/24 meloxicam 7.5 mg tablet 7.5 mg PO QDAY 10/06/24 10/06/24 metoprolol succinate 50 mg 50 mg PO QDAY 10/06/24 10/06/24 tablet,extended release 24 hr Allergies Allergy/AdvReac Type Severity Reaction Status Date / Time sulfamethoxazole (From AdvReac Severe Unknown Verified 10/06/24 18:40 Bactrim) trimethoprim (From Bactrim) AdvReac Severe Unknown Verified 10/06/24 18:40 Opioid HPI Opioid Management Most Recent Opioid Data: Last Pain Scale 4 10/06/24 20:25 10/06/24 PFSH PFS Social History Little interest or pleasure in doing things: not at all Feeling down, depressed, or hopeless: not at all Exam Constitutional Vital Signs, click to edit/add: Last Vital Signs Temp 98.3 F 10/06/24 21:13 Pulse 104 H 10/06/24 22:20 Resp 25 H 10/06/24 22:20 BP 111/61 10/06/24 22:00 Pulse Ox 91 L 10/06/24 22:20 O2 Del Method Room Air 10/06/24 18:40 Course Vital Signs Vital signs: Vital Signs Temperature 100.2 F 10/06/24 18:40 Pulse Rate 118 H 10/06/24 18:40 Respiratory Rate 16 10/06/24 18:40 Blood Pressure 120/66 10/06/24 18:40 Pulse Oximetry 96 10/06/24 18:40 Oxygen Delivery Method Room Air 10/06/24 18:40 Temperature 98.3 F 10/06/24 21:13 Pulse Rate 104 H 10/06/24 22:20 Respiratory Rate 25 H 10/06/24 22:20 Blood Pressure 111/61 10/06/24 22:00 Pulse Oximetry 91 L 10/06/24 22:20 Oxygen Delivery Method Room Air 10/06/24 18:40 Medical Decision Making MDM Narrative Medical decision making narrative: Presents tachycardic, pulse ox mid 90 intermittent chest pain with significant exertional shortness of breath. I was able to review his noncontrast chest CT from this morning showing a mass in the superior segment of the right lower lobe extending to the subcarinal region. There is postobstructive atelectasis in the right lower lobe as a result. Prominent enlarged mediastinal and right hilar lymph nodes suspicious for local metastatic disease. Patient's symptoms over time, negative chest x-rays his checks x-rays were personally reviewed. With the potential for lung cancer in the differential and his vitals and symptoms I strongly recommend a CTA of the chest to rule out PE. Patient verbally consenting and agreeable at bedside with regards to ongoing treatment and management of symptoms. His blood pressure is stable but he will be hydrated with IV fluids. Patient noting some return of chest pain awaiting CTA of the chest with labs pending for renal function per protocol from radiology. Patient will be given 2 mg IV morphine. He previously declined a narcotic cough syrup given his continued cough. Attending physician note -this patient was signed out to me after the PA left at the end of his shift. The CTA chest revealed an infiltrative process in association with the previously noted right perihilar lung mass. Patient's white count is 22,000. I talked to the telemedicine hospitalist on-call - Carmen Patton - and the patient is admitted on an observation basis to [facility], where he will continue to receive IV antibiotic until his tachycardia improves and his leukocytosis reduces. He was given IV Rocephin and IV Levaquin in the emergency department. I have a long talk with the patient and his regarding this diagnosis. We discussed the plan moving forward which we will begin with treatment of this infiltrative process, reduction of his white count and fever control, followed by his appointment with Dr. Feliciano on Wednesday to discuss the next step regarding appropriate diagnosis and then appropriate treatment for this lung mass, which is likely to be cancerous. - Jason, DO Lab Data Labs: Lab Results 10/06/24 Range/Units 18:12 WBC 22.2 H (4.0-11.0) 10^3/uL RBC 4.78 (4.70-6.10) 10^6/uL Hgb 13.4 L (14.0-18.0) g/dL Hct 41.3 L (42.0-54.0) % MCV 86.4 (80.0-94.0) fL MCH 28.0 (25.9-34.0) pg MCHC 32.4 (29.9-35.2) g/dL RDW 14.3 (11.0-15.0) % Plt Count 333 (150-450) 10^3/uL MPV 9.3 L (9.5-13.5) fL Seg Neuts % (Manual) 74.0 (43.0-75.0) Lymphocytes % (Manual) 17.0 L (20.5-60.0) % Monocytes % (Manual) 6.0 (1.7-12.0) % Eosinophils % (Manual) 2.0 (0.9-7.0) % Basophils % (Manual) 1.0 (0.2-2.0) % Neutrophils # (Manual) 16.42 H (1.4-6.5) 10^3/uL Lymphocytes # (Manual) 3.77 (1.20-3.80) 10^3/uL Monocytes # (Manual) 1.33 H (0.30-0.80) 10^3/uL Eosinophils # (Manual) 0.44 (0.00-0.70) 10^3/uL Basophils # (Manual) 0.22 H (0.00-0.10) 10^3/uL PT 11.8 H (9.0-11.6) sec INR 1.13 APTT 28.5 (22.3-36.2) sec Sodium 134 L (136-145) mmol/L Potassium 4.5 (3.5-5.1) mmol/L Chloride 94 L (98-107) mmol/L Carbon Dioxide 28.9 (21.0-32.0) mmol/L Anion Gap 15.6 BUN 19.0 H (7.0-18.0) mg/dL Creatinine 1.15 (0.70-1.30) mg/dL Est GFR ( Amer) >60 (>=60 mL/min/1.73m^2) Est GFR (Non-Af Amer) >60 (>=60 mL/min/1.73m^2) BUN/Creatinine Ratio 16.5 Glucose 99 (74-106) mg/dL Lactate 1.3 (0.4-2.0) mmol/L Calcium 10.1 (8.5-10.1) mg/dL Total Bilirubin 0.9 (0.2-1.0) mg/dL AST 26 (15-37) U/L ALT 120 H (16-63) U/L Alkaline Phosphatase 128 H (46-116) U/L Troponin I High Sens 5.6 (4.0-76.1) pg/mL NT-Pro-B Natriuret Pep 121.0 (<=900.0) pg/mL Total Protein 7.9 (6.4-8.2) g/dL Albumin 2.9 L (3.4-5.0) g/dL Globulin 5.0 g/dL Albumin/Globulin Ratio 0.6 TSH & Free T4 Interp 0.887 (0.358-3.740) uIU/mL Discharge Plan Discharge Chief Complaint: Chest Pain Clinical Impression: Pneumonia, Mass of right lung, KERR (dyspnea on exertion) Patient Disposition: Admitted as Observation Time of Disposition Decision: 23:00
[2024-10-06] MEDS: ACETAMINOPHEN 500 MG TABLET 1000 MG PO (19:17)
[2024-10-06] MEDS: 0.9 % SODIUM CHLORIDE 1,000 ML 999 ML IV (19:19)
[2024-10-06 19:27] LABS: Hematocrit 41.3 % (42.0-54.0); Hemoglobin 13.4 g/dL (14.0-18.0); Mean Corpuscular HGB Conc 32.4 g/dL (29.9-35.2); Mean Corpuscular Volume 86.4 fL (80.0-94.0); Mean Platelet Volume 9.3 fL (9.5-13.5); Platelet Count 333 10^3/uL (150-450); Red Blood Count 4.78 10^6/uL (4.70-6.10); Red Cell Distribution Width 14.3 % (11.0-15.0); White Blood Count 22.2 10^3/uL (4.0-11.0)
[2024-10-06 19:42] LABS: INR 1.13; Partial Thromboplastin Time 28.5 sec (22.3-36.2); Prothrombin Time 11.8 sec (9.0-11.6)
[2024-10-06 19:45] LABS: Lactate/Lactic Acid 1.3 mmol/L (0.4-2.0)
[2024-10-06 19:47] LABS: Basophils Abs Manual 0.22 10^3/uL (0.00-0.10); Eosinophils Absolute Manual 0.44 10^3/uL (0.00-0.70); Lymphocytes Absolute Manual 3.77 10^3/uL (1.20-3.80); Monocytes Absolute Manual 1.33 10^3/uL (0.30-0.80); Segmented Neut Absolute Manual 16.42 10^3/uL (1.4-6.5)
[2024-10-06 19:52] LABS: Alanine Aminotransferase 120 U/L (16-63); Albumin Globulin Ratio 0.6; Albumin Level 2.9 g/dL (3.4-5.0); Alkaline Phosphatase 128 U/L (46-116); Anion Gap 15.6; Aspartate Amino Transferase 26 U/L (15-37); BUN Creatinine Ratio 16.5; Bilirubin Total 0.9 mg/dL (0.2-1.0); Calcium 10.1 mg/dL (8.5-10.1); Carbon Dioxide 28.9 mmol/L (21.0-32.0); Chloride 94 mmol/L (98-107); Estimated GFR (African America >60 (>=60 mL/min/1.73m^2); Estimated GFR (Non-African Ame >60 (>=60 mL/min/1.73m^2); Glucose 99 mg/dL (74-106); Potassium 4.5 mmol/L (3.5-5.1); Sodium 134 mmol/L (136-145); TSH W/ REFLEX FT4 0.887 uIU/mL (0.358-3.740); Total Protein 7.9 g/dL (6.4-8.2); Troponin I High Sensitivity 5.6 pg/mL (4.0-76.1)
[2024-10-06] MEDS: MORPHINE SULFATE 2 MG/ML SYRINGE IV (20:25)
[2024-10-06] MEDS: CEFTRIAXONE 1,000 MG in 0.9 % SODIUM CHLORIDE 50 ML 100 MG IV (22:53)
[2024-10-06] MEDS: LEVOFLOXACIN IN DEXTROSE 5 % 750 MG/150 ML PREMIX 100 MG IV (23:23)
[2024-10-07] VITALS (22 sets, daily range): BP systolic 100–135; BP diastolic 57–74; PULSE 86–128; TEMP 36.3–37.1; O2SAT 91–100
[2024-10-07 00:37] LABS: C Reactive Protein 16.29 mg/dL (<=0.50)
[2024-10-07] MEDS: 0.9 % SODIUM CHLORIDE 1,000 ML 100 ML IV ×3 (01:26→20:21)
[2024-10-07 03:31] LABS: Bilirubin Urine NEGATIVE (NEGATIVE); Blood Urine TRACE-I (NEGATIVE); Clarity Urine CLEAR (CLEAR); Color Urine LT. YELLOW (YELLOW); Glucose Urine UA NEGATIVE (NEGATIVE); Ketones Urine TRACE mg/dL (NEGATIVE); Leukocyte Esterase Urine NEGATIVE (NEGATIVE); Nitrite Urine NEGATIVE (NEGATIVE); Protein Urine NEGATIVE (NEG/TRACE); Urobilinogen Urine 0.2 EU/dL (0.2-1.0)
[2024-10-07 03:46] LABS: Bacteria Urine TRACE #/HPF (NONE SEEN); Cast Seen? NONE SEEN #/LPF (NONE SEEN); Crystals Seen? None Seen #/HPF (None Seen); Mucus Urine NONE SEEN (NONE SEEN); RBC Urine 0-2 #/HPF (0-2); Squamous Epithelial Cell Urine RARE #/LPF (NONE/RARE); Urine Culture Indicated NO; WBC Urine 0-2 #/HPF (NONE SEEN)
[2024-10-07] MEDS: MORPHINE SULFATE 2 MG/ML SYRINGE IV (05:46)
[2024-10-07 06:00] LABS: Hematocrit 36.3 % (42.0-54.0); Hemoglobin 11.7 g/dL (14.0-18.0); Mean Corpuscular HGB Conc 32.2 g/dL (29.9-35.2); Mean Corpuscular Hemoglobin 28.1 pg (25.9-34.0); Mean Corpuscular Volume 87.3 fL (80.0-94.0); Mean Platelet Volume 9.3 fL (9.5-13.5); Platelet Count 235 10^3/uL (150-450); Red Blood Count 4.16 10^6/uL (4.70-6.10); Red Cell Distribution Width 14.4 % (11.0-15.0); White Blood Count 20.2 10^3/uL (4.0-11.0)
[2024-10-07 06:13] LABS: Lymphocytes Absolute Manual 1.41 10^3/uL (1.20-3.80); Monocytes Absolute Manual 1.61 10^3/uL (0.30-0.80); Segmented Neut Absolute Manual 16.76 10^3/uL (1.4-6.5)
[2024-10-07 06:20] LABS: Alanine Aminotransferase 84 U/L (16-63); Albumin Globulin Ratio 0.6; Albumin Level 2.5 g/dL (3.4-5.0); Alkaline Phosphatase 111 U/L (46-116); Anion Gap 13.4; Aspartate Amino Transferase 17 U/L (15-37); BUN Creatinine Ratio 17.4; Bilirubin Total 0.7 mg/dL (0.2-1.0); Calcium 9.3 mg/dL (8.5-10.1); Carbon Dioxide 28.1 mmol/L (21.0-32.0); Chloride 97 mmol/L (98-107); Estimated GFR (African America >60 (>=60 mL/min/1.73m^2); Estimated GFR (Non-African Ame >60 (>=60 mL/min/1.73m^2); Globulin 4.3 g/dL; Glucose 91 mg/dL (74-106); Magnesium 1.9 mg/dL (1.8-2.4); Potassium 4.5 mmol/L (3.5-5.1); Sodium 134 mmol/L (136-145); Total Protein 6.8 g/dL (6.4-8.2)
[2024-10-07 07:36] LABS: Glucometer 94 mg/dL (74-106)
[2024-10-07] MEDS: ENOXAPARIN SODIUM 40 MG/0.4 ML SYRINGE SUBQ (08:28)
[2024-10-07] MEDS: MELOXICAM 7.5 MG TABLET PO (08:29)
[2024-10-07] MEDS: METOPROLOL SUCCINATE 50 MG TAB.ER.24H PO (08:29)
[2024-10-07] MEDS: ACETAMINOPHEN 500 MG TABLET 1000 MG PO (09:59)
[2024-10-07 11:19] LABS: Glucometer 99 mg/dL (74-106)
[2024-10-07] MEDS: IPRATROPIUM/ALBUTEROL SULFATE 3 ML AMPUL.NEB IH (11:35)
[2024-10-07] MEDS: METHYLPREDNISOLONE SOD SUCC PF 125 MG/2 ML VIAL 60 MG IVP ×3 (12:24→23:00)
[2024-10-07] MEDS: CODEINE 10 MG/GUAIFENESIN 100 MG 5 ML ORAL SYRINGE 10 ML PO (12:24)
[2024-10-07] MEDS: ENSURE HP 237 ML LIQUID PO ×2 (12:25→17:21)
[2024-10-07 14:00] LABS: Glucometer 197 mg/dL (74-106)
--- NOTE | 2024-10-07 15:01 | PM.HP ---
HPI H&P: HPI History of Present Illness Chief complaint: Pneumonia Leukocytosis lung tumer mass Narrative: 63 y/o male to ER with chest pain and SOB. C/o SOB for months and worsening fatigue for over a year. Severe SOB in June and diagnosed with covid. Improved a bit with treatment then developed influenza. Continues to have SOB. Seen by pulmonology and CT ordered. Follow up scheduled 10/09. Recently finished prednisone and felt better on steroids but worsened after completing. Increased SOB and weakness at home. SpO2 88% on room air. Family reports 30 pound weight loss and poor appetite since June. To ER and reviewed outpatient CT which showed mass. CTA performed and again showed mass suspicious for malignancy. Admitted for treatment. Started antibiotics for possible infection. Started steroids and breathing treatments Opioid HPI Opioid Management Most Recent Pain and Opioid Data: Last Pain Scale 0 10/07/24 13:56 10/07/24 Last Pain Assessment 10/07/24 14:29 Last MAR Pain Assessment 10/07/24 13:56 Last ORT Total Score 0 10/06/24 23:47 10/06/24 Last ORT Risk Category Low Risk 10/06/24 23:47 10/06/24 [facility] Medical History (Updated 10/07/24 @ 12:02 by Ochoa Owens MD) KERR (dyspnea on exertion) ?R06.09 - Other forms of dyspnea (ICD-10) Pneumonia ?J18.9 - Pneumonia, unspecified organism (ICD-10) COVID-19 ?U07.1 - COVID-19 (ICD-10) History of COVID-19 ?Z86.16 - Personal history of COVID-19 (ICD-10) Surgical History (Updated 10/06/24 @ 23:59 by Svetlana Kimball, PRITI) History of carpal tunnel surgery ?Z98.890 - Other specified postprocedural states (ICD-10) History of tonsillectomy ?Z90.89 - Acquired absence of other organs (ICD-10) Family History (Updated 10/06/24 @ 23:50 by Svetlana Kimball, PRITI) Father Family history of myocardial infarction Son Family history of stroke Other Family history of CHF (congestive heart failure) Social History (Updated 10/06/24 @ 23:51 by Svetlana Kimball RN) Within the past year, how often did you have a drink containing alcohol: never Score interpretation: A score less than 4 is consistent with normal alcohol consumption. Smoking status: Former smoker Non-prescribed substance use: denies use Highest level of school completed/degree received: Associate degree: occupational, technical, vocational program Are you now , , , , never or living with a partner: In a typical week, how many times do you talk on the telephone with family, friends, or neighbors: once per week How often do you get together with friends or relatives: once per week Little interest or pleasure in doing things: not at all Feeling down, depressed, or hopeless: not at all Do you think of yourself as: straight/heterosexual Gender Identity: male Meds Home Medications and Allergies Home Medications ?Medication ?Instructions ?Recorded ?Confirmed ?Type albuterol sulfate 90 mcg/actuation 2 puff inhalation Q4H PRN 10/06/24 10/06/24 History aerosol inhaler shortness of breath or wheezing budesonide 160 mcg-glycopyr 9 2 inh inhalation BID 10/06/24 10/06/24 History mcg-formot 4.8 mcg/actuation HFA inhaler (Breztri Aerosphere) cyclobenzaprine 10 mg tablet 10 mg PO .qhs 10/06/24 10/06/24 History meloxicam 7.5 mg tablet 7.5 mg PO QDAY 10/06/24 10/06/24 History metoprolol succinate 50 mg 50 mg PO QDAY 10/06/24 10/06/24 History tablet,extended release 24 hr Allergies Allergy/AdvReac Type Severity Reaction Status Date / Time sulfamethoxazole (From AdvReac Severe Unknown Verified 10/06/24 18:40 Bactrim) trimethoprim (From Bactrim) AdvReac Severe Unknown Verified 10/06/24 18:40 Exam Constitutional Vital Signs, click to edit/add: Last Vital Signs Temp 97.9 F 10/07/24 13:45 Pulse 100 H 10/07/24 13:45 Resp 16 10/07/24 13:45 BP 100/63 10/07/24 13:45 Pulse Ox 92 L 10/07/24 13:45 O2 Del Method Nasal Cannula 10/07/24 13:45 O2 Flow Rate 1 10/07/24 13:45 Documenting provider has reviewed patient's vital signs: yes Common normals: no apparent distress, oriented x3 and alert HENMT Common normals: normocephalic Eye Common normals: PERRL and EOMs intact bilaterally Respiratory Auscultation: diminished lung sounds (Decreased BS on right base) Cardio Common normals: regular rate, regular rhythm, no gallops, no murmurs and no rub GI Common normals: Normal to inspection, nondistended, normoactive bowel sounds present and non-tender Extremity Common normals: no pedal edema Results Labs Labs: Short CBC 10/06/24 10/07/24 Range/Units 18:12 05:40 WBC 22.2 H 20.2 H (4.0-11.0) 10^3/uL Hgb 13.4 L 11.7 L (14.0-18.0) g/dL Hct 41.3 L 36.3 L (42.0-54.0) % Plt Count 333 235 (150-450) 10^3/uL BMP 10/06/24 10/07/24 18:12 05:40 Sodium 134 L 134 L Potassium 4.5 4.5 Chloride 94 L 97 L Carbon Dioxide 28.9 28.1 BUN 19.0 H 16.0 Creatinine 1.15 0.92 Glucose 99 91 Calcium 10.1 9.3 Liver Function 10/06/24 10/07/24 Range/Units 18:12 05:40 Total Bilirubin 0.9 0.7 (0.2-1.0) mg/dL AST 26 17 (15-37) U/L ALT 120 H 84 H (16-63) U/L Alkaline Phosphatase 128 H 111 (46-116) U/L Albumin 2.9 L 2.5 L (3.4-5.0) g/dL Urine 10/07/24 Range/Units 03:15 Urine Color Lt. yellow (YELLOW) Urine Clarity Clear (CLEAR) Urine pH 6.0 (5.0-9.0) Ur Specific [place] 1.010 (1.005-1.025) Urine Protein Negative (NEG/TRACE) mg/dL Urine Glucose (UA) Negative (NEGATIVE) mg/dL Assessment and Plan Assessment and Plan (1) Mass of right lung: (2) Hypoxia: (3) Post-COVID chronic shortness of breath: (4) HTN (hypertension): Plan SOB and fatigue worsening over past several months to a year. CT with mass suspicious for malignancy. Consult pulmonology. Continue antibiotics, steroids, and breathing treatments. Resume home medication. Use PEP. Add ensure with meals.
[2024-10-07 15:34] LABS: Glucometer 150 mg/dL (74-106)
[2024-10-07] MEDS: LEVALBUTEROL HCL 1.25 MG/3 ML VIAL NEB IH ×2 (16:41→22:14)
[2024-10-07] MEDS: CEFTRIAXONE 1,000 MG in 0.9 % SODIUM CHLORIDE 50 ML 100 MG IV (23:01)
[2024-10-07] MEDS: LEVOFLOXACIN IN DEXTROSE 5 % 750 MG/150 ML PREMIX 100 MG IV (23:01)
[2024-10-08] VITALS (11 sets, daily range): BP systolic 120–135; BP diastolic 67–75; PULSE 89–110; TEMP 36.3–37; O2SAT 92–98
[2024-10-08] MEDS: 0.9 % SODIUM CHLORIDE 1,000 ML 100 ML IV (04:56)
[2024-10-08] MEDS: METHYLPREDNISOLONE SOD SUCC PF 125 MG/2 ML VIAL 60 MG IVP ×2 (04:57→11:11)
[2024-10-08] MEDS: LEVALBUTEROL HCL 1.25 MG/3 ML VIAL NEB IH ×2 (05:10→10:19)
[2024-10-08 06:11] LABS: Basophils Percent Auto 0.1 % (0.2-2.0); Eosinophils Percent Auto 0.1 % (0.9-7.0); Hematocrit 34.3 % (42.0-54.0); Immature Granulocytes Abs Auto 0.26 10^3/uL (0.00-0.03); Immature Granulocytes Pct Auto 1.6 % (0.0-0.5); Lymphocytes Absolute Auto 1.2 10^3/uL (1.2-3.8); Lymphocytes Percent Auto 7.9 % (20.5-60.0); Mean Corpuscular HGB Conc 32.1 g/dL (29.9-35.2); Mean Corpuscular Hemoglobin 27.6 pg (25.9-34.0); Mean Corpuscular Volume 86.2 fL (80.0-94.0); Mean Platelet Volume 9.5 fL (9.5-13.5); Monocytes Absolute Auto 0.3 10^3/uL (0.3-0.8); Monocytes Percent Auto 1.6 % (1.7-12.0); Neutrophils Percent Auto 88.7 % (43.0-75.0); Platelet Count 212 10^3/uL (150-450); Red Blood Count 3.98 10^6/uL (4.70-6.10); Red Cell Distribution Width 14.1 % (11.0-15.0); White Blood Count 15.8 10^3/uL (4.0-11.0)
[2024-10-08 06:24] LABS: Alanine Aminotransferase 63 U/L (16-63); Albumin Globulin Ratio 0.5; Albumin Level 2.3 g/dL (3.4-5.0); Alkaline Phosphatase 104 U/L (46-116); Anion Gap 16.1; Aspartate Amino Transferase 16 U/L (15-37); BUN Creatinine Ratio 24.1; Bilirubin Total 0.2 mg/dL (0.2-1.0); Calcium 9.1 mg/dL (8.5-10.1); Carbon Dioxide 23.7 mmol/L (21.0-32.0); Chloride 99 mmol/L (98-107); Estimated GFR (African America >60 (>=60 mL/min/1.73m^2); Estimated GFR (Non-African Ame >60 (>=60 mL/min/1.73m^2); Globulin 4.5 g/dL; Glucose 168 mg/dL (74-106); Magnesium 1.9 mg/dL (1.8-2.4); Potassium 3.8 mmol/L (3.5-5.1); Sodium 135 mmol/L (136-145); Total Protein 6.8 g/dL (6.4-8.2)
[2024-10-08 07:54] LABS: Glucometer 174 mg/dL (74-106)
[2024-10-08] MEDS: ENOXAPARIN SODIUM 40 MG/0.4 ML SYRINGE SUBQ (09:21)
[2024-10-08] MEDS: METOPROLOL SUCCINATE 50 MG TAB.ER.24H PO (09:21)
[2024-10-08] MEDS: MELOXICAM 7.5 MG TABLET PO (09:21)
[2024-10-08] MEDS: ENSURE HP 237 ML LIQUID PO ×2 (09:21→11:11)
[2024-10-08 11:17] LABS: Glucometer 190 mg/dL (74-106)
--- NOTE | 2024-10-08 13:39 | P.DS_ITS ---
DS: Providers Provider Date of admission: 10/06/24 23:29 Primary care physician: JOSÉ LUIS SILVA Consults: 10/06/24 Consult to Dietitian Routine Reason for consultation: 35 pounds since 10/07/24 11:59 Consult to Pulmonology Routine Consulting Provider: Yordan Feliciano Reason for consultation: Lung mass, SOB Has provider been notified: Yes DS: Diagnosis Discharge Diagnosis (1) Mass of right lung: (2) Hypoxia: (3) Post-COVID chronic shortness of breath: (4) HTN (hypertension): DS: Summary Hospital Course Hospital Course: Reason for admission: See H&P for details. 63 y/o male to ER with chest pain and SOB. C/o SOB for months and worsening fatigue for over a year. Severe SOB in June and diagnosed with covid. Improved a bit with treatment then developed influenza. Continues to have SOB. Seen by pulmonology and CT ordered. Follow up scheduled 10/09. Recently finished prednisone and felt better on steroids but worsened after completing. Increased SOB and weakness at home. SpO2 88% on room air. Family reports 30 pound weight loss and poor appetite since June. To ER and reviewed outpatient CT which showed mass. CTA performed and again showed mass suspicious for malignancy. Admitted for treatment. Hospital course: Started antibiotics for possible infection. Started steroids and breathing treatments. Initially on oxygen but able to wean and normal SpO2 on room air. Improved with treatment. Less SOB and fatigue improved with steroids. Afebrile. Discharged home in stable condition. Will take levaquin and prednisone as directed. Follow up with pulmonology 10/09 as scheduled. Resume other home medication as directed. Time Spent with Patient Time attestation: Total time spent providing and/or coordinating discharge services: Time spent: greater than 30 minutes Exam Constitutional Vital Signs, click to edit/add: Last Vital Signs Temp 97.8 F 10/08/24 12:00 Pulse 106 H 10/08/24 12:00 Resp 18 10/08/24 12:00 BP 135/67 10/08/24 12:00 Pulse Ox 95 10/08/24 12:00 O2 Del Method Room Air 10/08/24 12:00 O2 Flow Rate 1.5 10/08/24 05:12 Documenting provider has reviewed patient's vital signs: yes Common normals: no apparent distress, oriented x3 and alert HENMT Common normals: normocephalic Eye Common normals: PERRL and EOMs intact bilaterally Respiratory Common normals: normal respiratory effort and clear to auscultation bilaterally Cardio Common normals: regular rate, regular rhythm, no gallops, no murmurs and no rub GI Common normals: Normal to inspection, nondistended, normoactive bowel sounds present and non-tender Extremity Common normals: no pedal edema DS: Data Data Completed and Pending Labs on day of discharge: Labs from last 24 hours 10/08/24 10/08/24 10/08/24 11:06 07:43 05:50 WBC 15.8 H RBC 3.98 L Hgb 11.0 L Hct 34.3 L MCV 86.2 MCH 27.6 MCHC 32.1 RDW 14.1 Plt Count 212 MPV 9.5 Neut % (Auto) 88.7 H Lymph % (Auto) 7.9 L Meigs % (Auto) 1.6 L Eos % (Auto) 0.1 L Baso % (Auto) 0.1 L Neut # (Auto) 14.0 H Lymph # (Auto) 1.2 Meigs # (Auto) 0.3 Eos # (Auto) 0.0 Baso # (Auto) 0.0 Abs Immat Gran (auto) 0.26 H Imm/Tot Granulo (auto) 1.6 H Sodium 135 L Potassium 3.8 Chloride 99 Carbon Dioxide 23.7 Anion Gap 16.1 BUN 19.0 H Creatinine 0.79 Est GFR ( Amer) >60 Est GFR (Non-Af Amer) >60 BUN/Creatinine Ratio 24.1 Glucose 168 H Calcium 9.1 Magnesium 1.9 Total Bilirubin 0.2 AST 16 ALT 63 Alkaline Phosphatase 104 Total Protein 6.8 Albumin 2.3 L Globulin 4.5 Albumin/Globulin Ratio 0.5 POC Glucose 190 H 174 H 10/07/24 10/07/24 15:32 13:49 WBC RBC Hgb Hct MCV MCH MCHC RDW Plt Count MPV Neut % (Auto) Lymph % (Auto) Meigs % (Auto) Eos % (Auto) Baso % (Auto) Neut # (Auto) Lymph # (Auto) Meigs # (Auto) Eos # (Auto) Baso # (Auto) Abs Immat Gran (auto) Imm/Tot Granulo (auto) Sodium Potassium Chloride Carbon Dioxide Anion Gap BUN Creatinine Est GFR ( Amer) Est GFR (Non-Af Amer) BUN/Creatinine Ratio Glucose Calcium Magnesium Total Bilirubin AST ALT Alkaline Phosphatase Total Protein Albumin Globulin Albumin/Globulin Ratio POC Glucose 150 H 197 H Discharge Plan Discharge Disposition: Home, Self-Care Discharge Medications: New prednisone 10 mg tablets,dose pack See Rx Instructions .ROUTE .COMPLEX Qty: 39 0RF Rx Instructions: 10 mg orally ;6 PO daily x 3 days, then 4 PO daily x 3 days, then 2 PO daily x 3 days, then 1 PO daily x 3 days levofloxacin 750 mg tablet 750 mg PO DAILY 7 Days Qty: 7 0RF Continued albuterol sulfate 90 mcg/actuation HFA aerosol inhaler 2 puff INHALATION Q4H PRN (Reason: shortness of breath or wheezing) cyclobenzaprine 10 mg tablet 10 mg PO .qhs meloxicam 7.5 mg tablet 7.5 mg PO QDAY metoprolol succinate 50 mg tablet extended release 24 hr 50 mg PO QDAY Breztri Aerosphere 160-9-4.8 mcg/actuation HFA aerosol inhaler 2 inh inhalation BID Activity: resume usual activities as tolerated Diet: advance to your usual diet Print Language: Prydeinig Patient Instructions: Prednisone (By mouth), Levofloxacin (By mouth) (Levaquin, Levaquin Leva-anyi), Hypoxia (ED), Pneumonia (ED) Forms: Portal Instructions Follow Up Appointments: Keep your appointment with the Physical Therapist Assistant, Dr. Feliciano for 10/09/24.
--- NOTE | 2024-10-09 12:41 | CM.DCFOLLOWU ---
Person spoke with: patient How are you feeling?well How is your pain?none Did you understand your discharge instructions?yes Do you have any questions about your discharge instructions?no Were you given any prescriptions at discharge?yes Were you able to get your prescriptions filled?yes Do you understand how to take your medications as ordered?yes Do you have any questions about your follow up appointment and do you plan to keep your follow up appointment? no questions, had follow up with pulm. today Is there anything else that you would like to discuss?no Questions/Comments/Concerns/Other:none
== END 2024-10-08 13:53 | disposition home or self-care (01) | DRG 182 ==
LOC: ER 23:00 → MS 23:35
PROVIDERS: Family Medicine; Personal Emergency Response Attendant; Registered Nurse; Admitting Provider Family Medicine; Emergency Provider Emergency Medicine; PCP Family Medicine; Visit Provider Family Medicine
DX: C34.91 Malignant neoplasm of unspecified part of right bronchus or lung (principal); R91.8 Other nonspecific abnormal finding of lung field; R05.3 Chronic cough; R06.09 Other forms of dyspnea; Z87.891 Personal history of nicotine dependence; R09.02 Hypoxemia; R06.02 Shortness of breath; U09.9 Post COVID-19 condition, unspecified; R07.9 Chest pain, unspecified; R53.83 Other fatigue; R63.4 Abnormal weight loss; Z68.29 Body mass index [BMI] 29.0-29.9, adult
CPT/HCPCS: 36415; 71250; 71275; 80053; 81001; 82947; 82948; 83605; 83735; 83880; 84443; 84484; 85007; 85025; 85027; 85610; 85730; 86140; 87040; 93005; 94640; 94667; 94668; 94761; 96365; 96366; 96367; 96372; 96375; 96376; 99285; G0378; J0696; J1650; J2270; J2919; Q9967

== ENCOUNTER 2024-10-12 12:18 | Outpatient (OUT) | payer BC, SELFPAY ==
--- NOTE | 2024-10-12 12:31 | ECG_ITS ---
[facility] Test Date: 2024-10-12 Pat Name: JATIN KOCH Department: Room: - Gender: Male [employer] In[employer]: : 1960 Requested By: Yordan Feliciano Order Number: [id number] Mar[place] MD: AGATHA SALAZAR M.D. Measurements Intervals [place] Rate: 93 P: 32 MS: 168 QRS: 33 QRSD: 133 T: 5 QT: 359 QTc: 447 Interpretive Statements SINUS RHYTHM RIGHT BUNDLE BRANCH BLOCK [120+ ms QRS DURATION, UPRIGHT V1, 40+ ms S IN I/aVL/V4/V5/V6] Abnormal ECG Compared to ECG 10/06/2024 19:04:05 Ectopic atrial tachycardia, unifocal no longer present Electronically Signed On 10-12-2024 23:28:47 EDT by AGATHA SALAZAR M.D.
== END 2024-10-12 12:19 | disposition home or self-care (01) ==
LOC: PST 12:19
PROVIDERS: PCP Family Medicine; Visit Provider Internal Medicine
DX: Z01.810 Encounter for preprocedural cardiovascular examination (principal); R91.8 Other nonspecific abnormal finding of lung field
CPT/HCPCS: 93005

== ENCOUNTER 2024-10-16 06:19 | Day surgery (SDC) | payer BC, SELFPAY ==
[2024-10-12 12:56] VITALS: BP 146/78; PULSE 98; TEMP 36.3; O2SAT 95; BMI 31.0
[2024-10-16] VITALS (8 sets, daily range): BP systolic 99–153; BP diastolic 55–87; PULSE 95–109; TEMP 36.2–36.6; O2SAT 92–97; BMI 31.0
[2024-10-16] MEDS: LACTATED RINGER'S SOLUTION 1,000 ML 50 ML IV (07:06)
[2024-10-16] MEDS: LIDOCAINE HCL 1% 100 MG/10 ML MDV 5 ML INJ (07:50)
[2024-10-16] MEDS: EPINEPHRINE HCL PF 1 MG/ML AMPULE INJ (07:50)
--- NOTE | 2024-10-16 08:27 | PC.NURSE ---
Infrequent moist cough noted
--- NOTE | 2024-10-16 11:48 | P.ON_ITS ---
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 General anesthesia - please see their records 2. Lidocaine 1% - 5mL Specimens 1. Endobronchial biopsies of the bronchus intermedius mass sent for pathology 2. Pooled ronchial washings of the bronchus intermedius, RML, & RLL sent for cytology Estimated blood loss 5mL Complications None Description Informed consent was obtained after risks, benefits, and alternatives were discussed with the patient.? Time out was initiated to confirm the correct patient, site, and procedure with all present voicing in the affirmative. Patient was brought to the operating room suite where noninvasive monitoring was utilized.? Sedation & anesthesia were administered by the anesthesia department- please refer to their records for further information.? Tape was placed over the patient's eyes to prevent spillage of secretions.? An 8.5 endotracheal tube was placed by anesthesia. Due to the endotracheal tube, the larynx, vocal cords, and proximal trachea were unable to be examined. The distal trachea was visualized without any gross tracheal lesions. 5mL of 1% lidocaine were instilled topically to the main paulette.? The main paulette was sharp without splaying or evidence of underlying mass. I immediately observed an endobronchial mass located in the bronchus intermedius. Noting this, I surveyed the left lung first, advancing the bronchoscope through the left main bronchus to the RAINA where the upper division apicoposterior and anterior, as well as lingular superior and inferior segments were visualized.? The bronchoscope was then advanced into the LLL where the superior, anteromedial, lateral, and posterior basilar segments visualized.? No endobronchial lesions, exudate, or other abnormalities were noted. The bronchoscope was then advanced through the right main bronchus to the RUL, where the apical, posterior, and anterior segments were visualized.? I could not advance the bronchoscope further as the endobronchial mass was obstructing the bronchus intermedius. It was polypoid in nature, with stalk near posterior wall, just inferior to the RUL bronchus. It acted in a ball-valve mechanism with breaths; I was not able to pass the scope around the mass during exhalation. At this time, I began obtaining endobronchial biopsies of this mass. After the second biopsy, there was mild bleeding present which obscured my vision and began pooling into the RUL. I applied suction for several minutes, and the bleeding subsided. Several more biopsies were obtained without as much bleeding. Next, pooled bronchial washings were obtained from the bronchus intermedius and distal from the RML and RLL. After an adequate return of saline was obtained, 1mL of epinephrine was instilled directly to the mass. No further bleeding was noted. The bronchoscope was withdrawn.? Patient tolerated procedure well and was transported to PACU. Patient's designee was updated on the findings per the patient's verbalized request and consent prior to the procedure. Acronym Grijalva -BAL: Bronchoalveolar lavage -RAINA: Left upper lobe -LLL: Left lower lobe -PACU: Post-anesthesia care unit -RUL: Right upper lobe -RML: Right middle lobe -RLL: Right lower lobe Anesthesia: VANDANAA Surgeon: Yordan Feliciano Condition: stable Disposition: same day
== END 2024-10-16 09:21 | disposition home or self-care (01) ==
PROVIDERS: PCP Family Medicine; Visit Provider Internal Medicine
PROC: (CPT 520; principal; 2024-10-16 07:30)
DX: C34.31 Malignant neoplasm of lower lobe, right bronchus or lung (principal); R05.3 Chronic cough; Z87.891 Personal history of nicotine dependence; Z86.16 Personal history of COVID-19; Z87.09 Personal history of other diseases of the respiratory system; G47.33 Obstructive sleep apnea (adult) (pediatric); I10 Essential (primary) hypertension
CPT/HCPCS: 31625; 99999; J1100; J1805; J2250; J2371; J2405; J2704; J3010

== ENCOUNTER 2024-11-02 08:53 | Emergency (ER) | payer BC, SELFPAY ==
--- OUTSIDE RECORDS SUMMARY | 2024-10-23 10:00 | XMS_ITS ---
Author Organization The [facility] in [place] Address [address] [place] [address] Care Team Providers Care Hunter Skin Diver Name Role Phone Brandi Fiore Primary Care Provider Unavail able Yordan Carbajal Unavailable [phone] Allergies Allergen (clinical drug ingredient) Drug/Non Drug [...] and if the patient has been scheduled? 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 If not, I can place one. He continues to lose weight. He was 201.8# on 10/09/2024 - today (10/23/2024), he is 193.6#. There is significant mediastinal lymphadenopathy which appears to be compressing the mid-esophagus, leading to esophgaela dysphagia, limiting further his caloric intake. Discussed healthy diet, consider Ensure or Boost. He will benefit from a electronic assembler/dietic satish with oncological treatment. Will have him [...] will see if an internal referral to [facility] interventional pulmonology can be made. If not, I can place one. He continues to lose weight. He was 201.8# on 10/09/2024 - today (10/23/2024), he is 193.6#. There is significant mediastinal lymphadenopathy which appears to be compressing the mid-esophagus, leading to esophgaela dysphagia, limiting further his caloric intake. Discussed healthy diet, consider Ensure or Boost. He will benefit from a electronic assembler/sheetmetal patternmaker with oncological treatment. Will have him return [...] Name:Yordan Carbajal, 11/07/2024 01:00:00 PM, [address] [place], [address], Progress Notes * Frantz ROA IIDOB:[birth year] (63 yo M)Acc No.[id number]:10/23/2024 Follow Up Patient: Mike Frantz DAVILA II Provider: Akosua Carbajal DO :1960 A ge:63 Y S ex:Male Date:10/23/2024 Address:[address] [place], [place] [address] Pcp:JOSTIN Garcia Check In:01:57 PM ESTCheck O [...] a PET Scan performed on 10/18/2024 at [facility]. 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 D rugs/Alcohol: D rugs H [...] as needed Inhalation every 4 hrs Breztri Aerosphere(Mghcjox-Fkbdwbryinj-Xeyecanbjl) 160-9-4.8 MCG/ACT Aerosol 2 puffs Inhalation Twice a day Not-Taking/PRN Albuterol Sulfate HFA 108 (90 Base) MCG/ACT Aerosol Solution 1 puff as needed Inhalation every 4 hrs Not-Taking/PRN Breztri Aerosphere(Reexarw-Nozxkukppfh-Mxngloyepj) 160-9-4.8 MCG/ACT Aerosol 2 puffs Inhalation Twice [...] Education on smoking effects provided?10/23/2024 Former B [employer] PLAN Above Normal BMI Follow-up D ietary management education, guidance, and counseling * Disposition & Communication: A ttestation: Over 40 minutes spent [id number] with the patient & his discussing the bronchoscopy and PET results, referral to oncology, and treatment plan for hemoptysis, cough, and weight loss. * Follow Up: 2 Weeks (Reason: Cough, hemoptysis) * * Sign off status: Completed Visit Status: C HK (Check Out) true * Provider: Akosua Carbajal, DO Date: 0 10/23/2024 Generated for Marco renteria/Aicha/Ab on: 0 2024 08:58 AM EDT History and Physical Notes * [...] a PET Scan performed on 10/18/2024 at [facility]. Examination Category Sub-Category Detail Notes Category Not es Exam GENERAL APPEARANCE: Appears stated age Skin Normal Mouth [place] and moist Trachea Midline Chest Normal Respiratory Normal Movements, Ef fort Normal Auscultation Diminished in manager car ior right lung field, remaining lung is [...]
--- OUTSIDE RECORDS SUMMARY | 2024-10-25 04:30 | XMS_ITS ---
Author Organization The [facility] in [place] Address [address] [place] [address] Care Team Providers Care Pantograph Machine Set Up Operator Name Role Phone Brandi Fiore Primary Care Provider Unavail Alina Ray [phone] REASON FOR VISIT -3 Month Follow Up- discuss depression and weight loss per Encounters Encounter Location Date Provider Diagnosis [facility] [address] [place] [address] 10/25/2024 Alina Ragland Plan Of Treatment Next Appt Details Provider Name:Yordan Feliciano, 11/07/2024 01:00:00 PM, [address] [place], [address], Progress Notes * Frantz ROA IIDOB:[birth year] (64 yo M)Acc No.[id number]:10/25/2024 UNLOCKED PROGRESS NOTE Established Patient: R Frantz DAVILA II Provider: Hugh Ragland MD :1960 A ge:63 Y S ex:Male Date:10/25/2024 Address:[address] [place] [address] Pcp:JOSTIN Garcia Subjective: * Chief Complaints: * 1 . -3 Month Follow Up- discuss depression and weight loss per . * Medical History: Objective: * Vitals: Assessment: Plan: * Treatment: * * Electronic signature of Eric Ragland MD, [id number] on 2024 at 08:58 AM EDT Sign off status: Pending Visit Status: C ANC (Cancelled) * Provider: Hugh Ragland MD Date: 0 10/25/2024 Generated for Marco renteria/Aicha/Ab on: 2024 08:58 AM EDT
--- OUTSIDE RECORDS SUMMARY | 2024-10-30 06:00 | XMS_ITS ---
Author Organization [facility] in [place] Address [address] [place] [address] Care Team Providers Care Electric Repair Supervisor Name Role Phone Brandi Fiore Primary Care Provider Unavail Yordan Jacob Unavailable [phone] REASON FOR VISIT 2w F/U - Bronchoscopy Encounters Encounter Location Date Provider Diagnosis Pulmonary Medicine [place] [address] [place] [address] 10/30/2024 Yordan Feliciano Plan Of Treatment Next Appt Details Provider Name:Yordan Feliciano, 11/07/2024 01:00:00 PM, [address] [place], [address], Progress Notes * Frantz ROA IIDOB:[birth year] (64 yo M)Acc No.[id number]:10/30/2024 UNLOCKED PROGRESS NOTE Follow Up Patient: R Frantz DAVILA II Provider: Akosua Feliciano DO :1960 A ge:63 Y S ex:Male Date:10/30/2024 Address:[address] [place] [address] Pcp:JOSTIN Garcia Subjective: * Chief Complaints: * 1 . 2w F/U - Bronchoscopy. * Medical History: Objective: * Vitals: Assessment: Plan: * Treatment: * * Electronic signature of Mignon Feliciano DO on 2024 at 08:58 AM EDT Sign off status: Pending Visit Status: R /S (Rescheduled) * Provider: Akosua Feliciano DO Date: 0 10/30/2024 Generated for Marco renteria/Aicha/Ab on: 0 2024 08:58 AM EDT
--- OUTSIDE RECORDS SUMMARY | 2024-10-30 14:30 | XMS_ITS | Encounter Summary ---
Author Organization [facility] Address [address] [place] [address] Care Team Providers Care Dispensing Audiologist Name Role Phone Brandi Alvarado APRN.[facility] Primary Care Provider [phone] Source Comments In the event this information is protected by the Federal Confidentiality of Alcohol and Drug AbusePatient Records regulations: The Federal rules restrict any use of the information to criminally investigate or prosecute any alcohol or drug abuse patient.[facility] Encounter Details Date Type Department Care Team (Late st Contact Info) Description 10/30/2024 2:30 PM EDT Education Nutrition Therapy [address] [place] [address] Bee Pabon, JAMIL [address] [place] [address] Arrived Social History Tobacco Use Types Packs/Day Years [...] is lower risk 9 10/27/2024 Data from: https://www.neighborhoodatlas.[facility]/. Last address used for calculation [address] 10/27/2024 Sex and Gender Information Value Date Recorded Sex Assigned at Not on file Legal Sex Male 8:04 AM EST Gender Identity Not on file Sexual Orientation Not on file documented as of this encounter Plan of Treatment Upcoming Encounters Date Type Department Care Team (Latest Contact Info) Description 11/10/2024 8:30 AM EDT Visit (SP) Office Hematology/Oncology [address] [place] [address] [place] [address] Kvng Perez MD [address] [facility] [place] [address] 2 week follow up 11/10/2024 9:00 AM EDT Office Visit Radiation Oncology [address] [place] [address] [place] [address] Ezra Moreno MD [address] [facility] [place] [address] Consult dx Lung cancer 11/15/2024 11:00 AM EDT Office Visit Pulmonary Medicine [address] [address] Alexandre Robertson MD [address] [place] [address] New Consultation 11/15/2024 12:10 PM EDT Procedure Cardiology [address] [address] PreOp Testing 11/20/2024 11:30 AM EDT Hospital Encounter Admitting [address] [address] Alexandre Robertson MD [address] [place] [address] 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] 11/20/2024 11:30 AM EDT - 11/20/2024 1:30 PM EDT Surgery Admitting [address] [address] Alexandre Robertson MD [address] [place] [address] BRONCHOSCOPY FLEXIBLE ADULT 11/30/2024 3:30 PM EDT [facility] Nutrition Therapy [address] [place] [address] Byers Bee, RD [address] [place] [address] Follow up lung/ severe weight loss Scheduled Procedures Name Priority Associated Diagnoses Date/Ti me BRONCHOSCOPY FLEXIBLE ADULT Bronchiolar disease 11/20/2024 11:30 AM EDT documented as of this encounter Visit Diagnoses Diagnosis Malignant neoplasm of lower lobe of right lung (HCC) Bronchiolar disease Other diseases of trachea and bronchus documented in this encounter Care Teams Dispensing Audiologist Relationship Specialty Start Date End Date Brandi Alvarado, NETWORK OPERATIONS MANAGER.BALL THREAD MACHINE TENDER [address] [place] [address] PCP - General Nurse Practitioner 10/27/24 documented as of this encounter
--- OUTSIDE RECORDS SUMMARY | 2024-11-02 08:58 | XMS_ITS | Encounter Summary ---
Author Organization [facility] Address [address] [place] [address] Care Team Providers Care Advisory Application Developer Name Role Phone Jenny Brandi Fowler APRN.[facility] Primary Care Provider [phone] Source Comments In the event this information is protected by the Federal Confidentiality of Alcohol and Drug AbusePatient Records regulations: The Federal rules restrict any use of the information to criminally investigate or prosecute any alcohol or drug abuse patient.[facility] Reason for Visit * Reason Comments Appointment PreOp Bronch Encounter Details Date Type Department Care Team (Late st Contact Info) Description 11/01/2024 Telephone HOSP MAIN G083 [address] [place] [address] Appointment (PreOp Bronch) Social History Tobacco Use Types Packs/Day Years [...] is lower risk 9 10/27/2024 Data from: https://www.neighborhoodatlas.medicine.[facility].edu/. Last address used for calculation [address] [...] AM EDT Visit (SP) Office Hematology/Oncology [address] [place] [address] [place] [address] Kvng Perez MD [address] [facility] [place] [address] 2 week follow up 11/10/2024 9:00 AM EDT Office Visit Radiation Oncology [address] [facility] [place] [address] Ezra Moreno MD [address] [facility] 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] 11/20/2024 11:30 AM EDT - 11/20/2024 1:30 PM EDT Surgery Admitting [address] [address] Alexandre Robertson MD [address] [place] [address] BRONCHOSCOPY FLEXIBLE ADULT 11/30/2024 3:30 PM EDT [facility] Nutrition Therapy [address] [place] [address] Brentwood Bee, RD [address] [place] [address] Follow up lung/ severe weight loss Scheduled Procedures Name Priority Associated Diagnoses Date/Ti me BRONCHOSCOPY FLEXIBLE ADULT Bronchiolar disease 11/20/2024 11:30 AM EDT documented as of this encounter Visit Diagnoses Not on filedocumented in this encounter Care Teams Advisory Application Developer Relationship Specialty Start Date End Date Brandi Alvarado, DICE MAKER.FANCY STITCHER [address] [place] [address] PCP - General Nurse Practitioner 10/27/24 documented as of this encounter
--- OUTSIDE RECORDS SUMMARY | 2024-11-02 08:58 | XMS_ITS | Encounter Summary ---
Author Organization [facility] Address [facility] [place] [address] Care Team Providers Care Director Banking Name Role Phone Jenny Brandi Fowler APRN.[facility] Primary Care Provider [phone] Source Comments In the event this information is protected by the Federal Confidentiality of Alcohol and Drug AbusePatient Records regulations: The Federal rules restrict any use of the information to criminally investigate or prosecute any alcohol or drug abuse patient.[facility] Reason for Visit * Reason Comments Bronchoscopy Referral Encounter Details Date Type Department Care Team (Late st Contact Info) Description 10/27/2024 Telephone Pulmonary Medicine [address] [place] [address] Janell An Bronchoscopy Referral Social History Tobacco Use Types Packs/Day Years [...] is lower risk 9 10/27/2024 Data from: https://www.neighborhoodatlas.medicine.[facility].edu/. Last address used for calculation [address] 10/27/2024 Sex and Gender Information Value Date Recorded Sex Assigned at Not on file Legal Sex Male 8:04 AM EST Gender Identity Not on file Sexual Orientation Not on file documented as of this encounter Miscellaneous Notes * Telephone Encounter - Janell An - 10/27/2024 10:19 AM EDT Referring Physician: Dr. Kvng Perez Address: [facility] Mae Phone #: [phone] Fax #: [phone] Reason for referral: Malignant neoplasm of lower lobe of right lung Is there CareEverywhere Records: Yes Is there Imaging available: Yes - Recent CT: Yes - Date of CT: 10/18/2024 documented in this encounter Plan of Treatment Upcoming Encounters Date Type Department Care Team (Latest Contact Info) Description 11/10/2024 8:30 AM EDT Visit (SP) Office Hematology/Oncology [address] [place] [address] [place] [address] Kvng Perez MD [address] [place] [address] [place] [address] 2 week follow up 11/10/2024 9:00 AM EDT Office Visit Radiation Oncology [address] [place] [address] [place] [address] Ezra Moreno MD [address] [place] [address] [place] [address] Consult dx Lung cancer 11/15/2024 11:00 AM EDT Office Visit Pulmonary Medicine [address] [place] [address] Alexandre Robertson MD [address] [place] [address] New Consultation 11/15/2024 12:10 PM EDT Procedure Cardiology [address] [address] PreOp Testing 11/20/2024 11:30 AM EDT Hospital Encounter Admitting [address] [address] Alexandre Robertson MD [address] [place] [address] 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] 11/20/2024 11:30 AM EDT - 11/20/2024 1:30 PM EDT Surgery Admitting [address] [address] Alexandre Robertson MD [address] [place] [address] BRONCHOSCOPY FLEXIBLE ADULT 11/30/2024 3:30 PM EDT [facility] Nutrition Therapy [address] [place] [address] eBe Pabon, JAMIL [address] [place] [address] Follow up lung/ severe weight loss Scheduled Procedures Name Priority Associated Diagnoses Date/Ti me BRONCHOSCOPY FLEXIBLE ADULT Bronchiolar disease 11/20/2024 11:30 AM EDT documented as of this encounter Visit Diagnoses Not on filedocumented in this encounter Care Teams Director Banking Relationship Specialty Start Date End Date Brandi Alvarado, IRON CASTER.FRETTED INSTRUMENTS INSPECTOR [address] [place] [address] PCP - General Nurse Practitioner 10/27/24 documented as of this encounter
--- OUTSIDE RECORDS SUMMARY | 2024-11-02 08:58 | XMS_ITS | Clinical Summary ---
Author Organization [facility] Address [address] [place] [address] Care Team Providers Care Cofounder Name Role Phone Unavailable Primary Care Provider Unavailabl e Encounters Date Type Department Care Team Description 10/09/2024 Results Follow-Up [facility] [address] [place] [id number] Marvel Shields PA 10/07/2024 Clinisync Result Encounter [facility] External Department Unsolicited Marvel Shields PA 10/06/2024 Clinisync Result Encounter [facility] External Department Unsolicited Marvel Shields PA from Last 3 Months Social History Tobacco Use Types Packs/Day Years Used Date Smoking Tobacco: Never Assessed Sex and Gender Information Value Date Recorded Sex Assigned at Not on file Legal Sex Male 8:06 PM EDT Gender Identity Not on file Sexual Orientation Not on file Last Filed Vital Signs Vital Sign Reading Time Taken Comments Blood Pressure 140/90 05/09/2018 12:00 PM EST Pulse - - Temperature - - Respiratory Rate - - Oxygen Saturation - - Inhaled Oxygen Concentration - - Weight 102 kg (225 lb) 10/05/2022 12:00 PM EDT Height 170.2 cm (5' 7 ) 10/05/2022 12:00 PM EDT Body Mass Index 35.24 10/05/2022 12:00 PM EDT Plan of Treatment Not on file Procedures Procedure Name Priority Date/Time Associated Diagnosis Comments URINALYSIS MICROSCOPIC WITH REFLEX CULTURE Routine 10/07/2024 3:15 AM EDT BLOOD CULTURE 2 Routine 10/06/2024 6:20 PM EDT BLOOD CULTURE 1 Routine 10/06/2024 6:12 PM EDT from Last 3 Months Results * (ABNORMAL) URINALYSIS MICROSCOPIC WITH REFLEX CULTURE (10/07/2024 3:15 AM EDT) COLOR URINE LT. YELLOW YELLOW TBH CLARITY URINE CLEAR CLEAR [facility] SPECIFIC GRAVITY URINE 1.010 1.005 - 1.025 TBH PH URINE 6.0 5.0 - 9.0 TBH PROTEIN URINE NEGATIVE NEG/TRACE mg/dL TBH GLUCOSE URINE UA NEGATIVE NEGATIVE mg/dL [facility]H BILIRUBIN URINE NEGATIVE NEGATIVE TBH KETONES URINE TRACE(A) NEGATIVE mg/dL TBH BLOOD URINE TRACE-I NEGATIVE TBH NITRITE URINE NEGATIVE NEGATIVE TBH UROBILINOGEN URINE 0.2 0.2 - 1.0 EU/dL TBH LEUKOCYTE ESTERASE URINE NEGATIVE NEGATIVE TBH TBH WBC 0-2(A) NONE SEEN #/HPF TBH TBH RBC 0-2 0 - 2 #/HPF TBH BACTERIA URINE TRACE(A) NONE SEEN #/HPF TBH MUCUS URINE NONE SEEN NONE SEEN TBH SQUAMOUS EPITHELIAL CELL URINE RARE NONE/RARE #/LPF TBH CRYSTALS SEEN? None Seen None Seen #/HPF TBH CAST SEEN? NONE SEEN NONE SEEN #/LPF TBH URINE CULTURE INDICATED NO [facility] 10/07/2024 3:15 AM EDT 10/07/2024 3:28 AM EDT Narrative CLINISYNC - 10/07/2024 3:46 AM EDT Marvel SESAY LAB BLOOD ORDERABLES Final Re sult Performing Organization Address [facility] de Phone Number [facility] TB * BLOOD CULTURE 2 (10/06/2024 6:20 PM EDT) BLOOD CULTURE 2 Blood Culture 2 NG5D NO GROWTH AT 5 DAYS.^NO GROWTH AT 5 DAYS. TBH 10/06/2024 6:20 PM EDT 10/06/2024 7:23 PM EDT Narrative CLINISYNC - 10/12/2024 3:25 PM EDT L AC Marvel SESAY LAB BLOOD ORDERABLES Final Re sult CLINISYNC TBH * BLOOD CULTURE 1 (10/06/2024 6:12 PM EDT) BLOOD CULTURE 1 Blood Culture 1 NG5D NO GROWTH AT 5 DAYS.^NO GROWTH AT 5 DAYS. TBH 10/06/2024 6:12 PM EDT 10/06/2024 7:23 PM EDT Narrative CLINISYNC - 10/12/2024 3:25 PM EDT R AC us Marvel SESAY LAB BLOOD ORDERABLES Final Re sult ANTOINISYNC TBH from Last 3 Months Insurance [facility]
--- OUTSIDE RECORDS SUMMARY | 2024-11-02 08:58 | XMS_ITS | Encounter Summary ---
Author Organization [facility] Address [address] [place] [address] Care Team Providers Care Commercial Carpet Installer Name Role Phone Unavailable Primary Care Provider Unavailabl e Encounter Details Date Type Department Care Team (Late st Contact Info) Description 10/09/2024 Results Follow-Up [facility] [address] [facility] [address] [place] [id number] Marvel Shields PA 112 [facility] [address] [place] [address] Social History Tobacco Use Types Packs/Day Years Used Date Smoking Tobacco: Never Assessed Sex and Gender Information Value Date Recorded Sex Assigned at Not on file Legal Sex Male 8:06 PM EDT Gender Identity Not on file Sexual Orientation Not on file documented as of this encounter Plan of Treatment Not on file documented as of this encounter Visit Diagnoses Not on filedocumented in this encounter
--- OUTSIDE RECORDS SUMMARY | 2024-11-02 08:58 | XMS_ITS | Clinical Summary ---
Author Organization [facility] Address [id number] [address] [place] [address] Care Team Providers Care Operations Intelligence Superintendent Name Role Phone Alina Ragland MD Primary Care Provider Allergies Active Allergy Reactions Criticality Noted Date Comments Sulfamethoxazole-Trimethoprim 2016 Medications varenicline (CHANTIX CONTINUING MONTH BOX) 1 mg tablet Take 1 tablet (1 mg total) by mouth 2 (two) times a day. Take with full glass of water. 56 tablet 3 03/31/2017 Active PEPSIN/GA/OXBI LE/PANCREAT/BET (XZECFY-YLR-KF QGLK-YQL-YDI-PA P ORAL) Take by mouth. Active ibuprofen (ADVIL,MOTRIN) 200 mg tablet Take 200 mg by mouth every 6 (six) hours as needed for pain. Active tamsulosin (FLOMAX) 0.4 mg capsule,extende d release 24hr Take 1 capsule (0.4 mg total) by mouth once daily for 90 days. 90 capsule 06/23/2017 Active Active Problems No known active problems Family History Medical History Relation Name Comments Heart disease Father Arthritis Mother Relation Name Status Comments Father Mother Social History Tobacco Use Types Packs/Day Years Used Date Smoking Tobacco: Former Cigarettes Q uit: 01/04/2017 Smokeless Tobacco: Never Alcohol Use Standard Drinks/Week Comments Yes 0 (1 standard drink = 0.6 oz pur e alcohol) Childcare Answer Date Recorded Childcare Unknown 11/23/2018 Employment Answer Date Recorded Employment Unknown 11/23/2018 Purpose - Life Answer Date Recorded Purpose and direction in life Unknown Sex and Gender Information Value Date Recorded Sex Assigned at Not on file Legal Sex Male 11:50 AM EDT Gender Identity Not on file Sexual Orientation Not on file Last Filed Vital Signs Vital Sign Reading Time Taken Comments Blood Pressure 112/70 03/31/2017 2:54 PM EDT Pulse 92 03/31/2017 2:54 PM EDT Temperature - - Respiratory Rate - - Oxygen Saturation - - Inhaled Oxygen Concentration - - Weight 95.7 kg (211 lb) 03/31/2017 2:54 PM EDT Height 172.7 cm (5' 8 ) 03/31/2017 2:54 PM EDT Body Mass Index 32.08 03/31/2017 2:54 PM EDT Plan of Treatment Health Maintenance Due Date Last Done Comments Depression Screening 1973 Tobacco Screening 1973 Adult BMI Screening 11/03/1979 DTaP,Tdap and Td Vaccines (1 - Tdap) 1980 Zoster (Shingles) Vaccine (1 of 2) 11/03/2011 Influenza Vaccine 02/12/2025 Medical Devices Not on file Insurance [employer] Care Teams Operations Intelligence Superintendent Relationship Specialty Start Date End Date Alnia Ragland MD [address] [place] [address] PCP - General Family Medicine 09/30/20
--- OUTSIDE RECORDS SUMMARY | 2024-11-02 08:58 | XMS_ITS | Clinical Summary ---
Author Organization [facility] Address [address] [place], [place] [id number] Care Team Providers Care Metal Cnc Operator Name Role Phone Brandi Alvarado APRN.CNP Primary Care Provider [phone] Allergies Active Allergy Reactions Criticality Noted Date Comments Codeine Other: See Comments Low 10/25/2024 Sulfamethoxazole Other: See Comments,Unknown 10/25/2024 Sulfamethoxazole-Trimethoprim Other: See Comments 12/17/2016 Medications albuterol HFA (PROVENTIL HFA, VENTOLIN HFA) 90 mcg/actuation inhaler INHALE 1 PUFF INTO THE LUNGS EVERY 4 HOURS NEEDED 09/14/19 25 Active Benzonatate 200 mg capsule 10/24/19 25 Active cyclobenzaprin e (FLEXERIL) 10 mg tablet Take 10 mg by mouth at bedtime as needed. 10/24/19 25 Active ibuprofen (MOTRIN) 200 mg tablet Take 200 mg by mouth every 6 hours as needed. Active meloxicam (MOBIC) 7.5 mg tablet Take 7.5 mg by mouth once daily. Active metoprolol succinate ER (TOPROL XL) 25 mg 24 hr tablet Take 25 mg by mouth. 06/29/19 24 Active predniSONE (DELTASONE) 20 mg tablet 10/24/19 25 Active tamsulosin (FLOMAX) 0.4 mg Take 0.4 mg by mouth. 06/23/19 18 Active fluticasone propionate (FLONASE NASAL) Use in the nose once daily. Active amoxicillin-cl avulanate potassium (AUGMENTIN) 875-125 mg per tablet Take 1 tablet by mouth every 12 hours. 10/24/19 25 Active Acetaminophen 500 mg cap Take 500 mg by mouth once daily. Takes aout 6 a day Active diphenhydramin e HCl (ALLERGY MEDICATION ORAL) Take by mouth once daily. Active MEN'S MULTI-VITAMIN ORAL Take by mouth once daily. 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 Carpal tunnel syndrome 03/25/2006 Encounters Date Type Department Care Team Description 11/01/2024 Telephone Hematology/Oncology [address] [place] [address] [address] [place] [place], [place] [phone] Brittany Marie, RN Patient Update; Appointment 11/01/2024 Telephone [place] [address] [address] [place] [address] Appointment (PreOp Bronch) 10/31/2024 Patient Update Pulmonary Medicine [address] [address] Maryuri Carrasquillo MD Bronchoscopy Scheduling- cleared (Initial Bronch Request ) 10/30/2024 2:30 PM EDT Education Nutrition Therapy [address] [place] [address] Arrived 10/27/2024 9:00 AM EDT Visit (SP) Office Hematology/Oncology [address] [place] [address] [place] [address] Kvng Perez MD Malignant neoplasm of lower lobe of right lung (HCC) (Primary Dx) 10/27/2024 Telephone Pulmonary Medicine [address] [place] [id number] Janell An Bronchoscopy Referral 10/25/2024 Abstract Hematology/Oncology [address] [place] [address] Kvng Perez MD from Last 3 Months Family History Medical History Relation Comments Heart disease Father Arthritis Mother Colon Cancer Mother Melanoma Mother COPD Sister Relation Status Comments Father Alive Mother Alive Sister Social History Tobacco Use Types Packs/Day Years [...] is lower risk 9 10/27/2024 Data from: https://www.neighborhoodatlas.medicine.[facility].edu/. Last address used for calculation [address] [...] Mass Index 30.18 10/27/2024 8:49 AM EDT Plan of Treatment Upcoming Encounters Date Type Department Care Team (Latest Contact Info) Description 11/10/2024 8:30 AM EDT Visit (SP) Office Hematology/Oncology [address] [place] [address] Kvng Perez MD [address] [facility] [place] [address] 2 week follow up 11/10/2024 9:00 AM EDT Office Visit Radiation Oncology [address] [facility] [place] [address] Ezra Moreno MD [address] 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] 11/20/2024 11:30 AM EDT - 11/20/2024 1:30 PM EDT Surgery Admitting [address] [address] Alexandre Robertson MD [address] [place] [address] BRONCHOSCOPY FLEXIBLE ADULT 11/30/2024 3:30 PM EDT [facility] Nutrition Therapy [address] [place] [address] Bee Pabon, JAMIL [address] [place] [address] Follow up lung/ severe weight loss Scheduled Procedures Name Priority Associated Diagnoses Date/Ti me BRONCHOSCOPY FLEXIBLE ADULT Bronchiolar disease 11/20/2024 11:30 AM EDT Health Maintenance Due Date Last Done Comments Anxiety Screening 11/03/1979 Depression Screening 11/03/1979 HIV Screening 11/03/1979 Hepatitis C Screening 11/03/1979 DTaP,Tdap,Td Vaccine (1 - Tdap) 1980 CT Colonography 2006 Colonoscopy 2006 Fecal Occult Blood 2006 Prostate Cancer Screening Discussion 2006 Sigmoidoscopy 2006 Pneumococcal Vaccine: 50+ (1 of 1 - PCV) 11/03/2011 Shingrix Vaccine (1 of 2) 11/03/2011 Diabetes Screening 10/01/2023 09/30/2020 Cologuard (FIT-DNA) 05/27/2025 05/27/2022 Colorectal Cancer Screening 05/27/2025 Lipid Screening 09/30/2025 09/30/2020 RSV Vaccine (1 - 1-dose 75+ series) 2036 Covid-19 Vaccine Completed 03/31/2024, , 08/28/2020 Influenza Vaccine Completed 03/31/2024, , 03/16/2022, Additional history exists Procedures Procedure Name Priority Date/Time Associated Diagnosis Comments EXTERNAL IMAGING 10/24/2024 1:51 PM EDT EXTERNAL LAB 10/24/2024 1:51 PM EDT EXTERNAL PROCEDURE 10/24/2024 1: 51 PM EDT EXTERNAL LAB 10/24/2024 1:51 PM EDT EXTERNAL IMAGING 10/24/2024 1:51 PM EDT EXTERNAL LAB 10/24/2024 1:51 PM EDT EXTERNAL LAB 10/24/2024 1:51 PM EDT EXTERNAL IMAGING 10/24/2024 1:[address] OUTSIDE CD DICOM IMPORT 10/18/2024 CT OUTSIDE CD DICOM IMPORT 10/06/2024 CT OUTSIDE CD DICOM IMPORT 10/06/2024 from Last 3 Months Results * EXTERNAL IMAGING (10/24/2024 1:51 PM EDT) Anatomical Region Laterality Modality Other us External Provider PA-C RADIOLOGY Final Res ult * EXTERNAL LAB (10/24/2024 1:51 PM EDT) Only the most recent of4 resultswithin the time period is included. us External Provider PA-C LABORATORY Final Res ult * EXTERNAL PROCEDURE (10/24/2024 1:51 PM EDT) us External Provider PA-C PROCEDURE Final Res ult * EXTERNAL IMAGING (10/24/2024 1:51 PM EDT) Anatomical Region Laterality Modality Other us External Provider PA-C RADIOLOGY Final Res ult * EXTERNAL IMAGING (10/24/2024 1:51 PM EDT) Anatomical Region Laterality Modality Other us External Provider PA-C RADIOLOGY Final Res ult * OT-NM PET w/ CT Scan Skull Base to Midthigh IMPORT (10/18/2024) Anatomical Region Laterality Modality Other 10/18/2024 Narrative 10/23/2024 5:07 PM EDT Images were obtained outside of [facility] Procedure Note Provider, [facility] - 10/23/2024 Images were obtained outside of [facility] us Ccf Provider RADIOLOGY Final Result * OT-CT ANGIO CHEST IMPORT (10/06/2024) Anatomical Region Laterality Modality Other 10/06/2024 Narrative 10/23/2024 6:25 PM EDT Images were obtained outside of [facility] Procedure Note Provider, [facility] - 10/23/2024 Images were obtained outside of [facility] Cc Provider RADIOLOGY Final Result * CT-CT CHEST WO CON IMPORT (10/06/2024) Anatomical Region Laterality Modality Other 10/06/2024 Narrative 10/23/2024 2:57 PM EDT Images were obtained outside of [facility] Procedure Note Provider, [facility] - 10/23/2024 Images were obtained outside of [facility] Cc Provider RADIOLOGY Final Result from Last 3 Months Insurance BLUE CARD PPO OOS Care Teams Metal Cnc Operator Relationship Specialty Start Date End Date Brandi Alvarado, SLEEVE IRONER.HVAC PROJECT ENGINEER [address] [place] [id number] PCP - General Nurse Practitioner 10/27/24
--- OUTSIDE RECORDS SUMMARY | 2024-11-02 08:58 | XMS_ITS | Encounter Summary ---
Author Organization [facility] Address [address] [place] [address] Care Team Providers Care Washer Blanket Name Role Phone Brandi Alvarado APRN.[facility] Primary Care Provider [phone] Source Comments In the event this information is protected by the Federal Confidentiality of Alcohol and Drug AbusePatient Records regulations: The Federal rules restrict any use of the information to criminally investigate or prosecute any alcohol or drug abuse patient.[facility] Reason for Referral * Outpatient Procedure (Urgent) - Pending Review Specialty Diagnoses / Procedures Referred By Contac t Referred To Contact [facility] [place] Diagnoses Pre-op testing Procedures ECG COMPLETE ECG ROUTINE ECG W/LEAST 12 LDS W/I&R Maryuri Carrasquillo MD [address] [place] [address] Phone: tel: fax: [facility] [address] [address] Referral ID Status Reason Start Date Expiration Date Visits Requested Visits Authorized [id number] Pending Review Auto-Generat ed Referral 10/31/2024 10/31/2025 1 1 Reason for Visit * Reason Onset Date Comments Bronchoscopy Scheduling- cleared 10/31/2024 Initial Bronch Request Encounter Details Date Type Department Care Team (Late st Contact Info) Description 10/31/2024 Patient Update Pulmonary Medicine [address] [address] Maryuri Carrasquillo MD [address] [place] [address] Bronchoscopy Scheduling- cleared (Initial Bronch Request ) Social History Tobacco Use Types Packs/Day Years [...] Data from: https://www.neighborhoodatlas.medicine.[facility]/. Last address used for calculation [address] 10/27/2024 Sex and Gender Information Value Date Recorded Sex Assigned at Not on file Legal Sex Male 8:04 AM EST Gender Identity Not on file Sexual Orientation Not on file documented as of this encounter Progress Notes * Maryuri Carrasquillo MD - 10/31/2024 4:33 PM EDT Bronchoscopy Request: cleared for scheduling November 01, 2024 Please schedule patient for the following: Outpatient Visit: New Consult with Staff: Patient Choice (Virtual or In-Person) Bronchoscopy Procedures: Therapeutic Bronchoscopy Diagnosis/Reason for Bronchoscopy: BI obstruction Timing: Next available Time Allotment/Tier: TIER 2: 2 HOUR Physician Performing Bronchoscopy:Bronch A/Therapeutic Group Needs Labs: No Needs EKG: Yes Needs CT prior: No Does the pt need cardiac clearance?: No Is he on anticoagulants/anti-plt therapy?: No Nursing Considerations: (ie: fdc, TB, respiratory isolation, clinical trial, Specific protocol etc.) none Additional notes to the first coat operator: OSH Bronchoscopy showed an mass obstructing BI, patient requestedIP evaluation. SqCell Carcinoma. T4N2M0 IIIB for now, starting chemorads Consultation request/referral by: Referring Physician: Dr. Kvng Perez Address: [address] Phone #: [phone] Fax #: [phone] Reviewed by: MD Maryuri Aguilar MD October 31, 2024 4:33 PM Addendum: CBC with diff: No results found for this basename: WBC,RBC,HB,HCT,MCV,MCH,MCHC,RDWCV,PLT,MPV,NEUTP,LYMPHP,MONOP,EOD INP,BASOP,ABSNEUT,ABSLYM,ABSMONO,ABSEOSIN,ABSBASO No results found for: K No results found for: NA No results found for: BUN No results found for: CREAT documented in this encounter Plan of Treatment Upcoming Encounters Date Type Department Care Team (Latest Contact Info) Description 11/10/2024 8:30 AM EDT Visit (SP) Office Hematology/Oncology [address] [place] [address] [place] [address] Kvng Perez MD [address] [place] [address] [place] [address] 2 week follow up 11/10/2024 9:00 AM EDT Office Visit Radiation Oncology [address] [facility] [place] [address] Ezra Moreno MD [address] [facility] [place] [address] Consult dx Lung cancer 11/15/2024 11:00 AM EDT Office Visit Pulmonary Medicine [address] [place] [address] Alexandre Robertson MD [address] [place] [address] New Consultation 11/15/2024 12:10 PM EDT Procedure Cardiology [address] [address] PreOp Testing 11/20/2024 11:30 AM EDT Hospital Encounter Admitting [address] [address] Alexandre Robertson MD [address] [place] [address] 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] 11/20/2024 11:30 AM EDT - 11/20/2024 1:30 PM EDT Surgery Admitting [address] [address] Alexandre Robertson MD [address] [place] [address] BRONCHOSCOPY FLEXIBLE ADULT 11/30/2024 3:30 PM EDT [facility] Nutrition Therapy [address] [place] [address] Bee Pabon, RD [address] [place] [address] Follow up lung/ severe weight loss Scheduled Orders Name Type Priority Associated Diagnoses Orde r Schedule COMPLETE BLOOD COUNT AND DIFFERENTIAL Lab STAT Pre-op testing Expected: 10/31/2024, Expires: 01/30/2025 BASIC METABOLIC PANEL Lab STAT Pre-op testing Expected: 10/31/2024, Expires: 01/30/2025 ECG COMPLETE ECG STAT Pre-op testing 1 Occurrences starting 10/31/2024 until 10/31/2025 Scheduled Procedures Name Priority Associated Diagnoses Date/Ti me BRONCHOSCOPY FLEXIBLE ADULT Bronchiolar disease 11/20/2024 11:30 AM EDT documented as of this encounter Visit Diagnoses Diagnosis Pre-op testing- Primary Preoperative examination, unspecified Bronchiolar disease Other diseases of trachea and bronchus documented in this encounter Care Teams Washer Blanket Relationship Specialty Start Date End Date Brandi Alvarado, FURNACE ROASTER.NATURAL SCIENCES PROFESSOR [address] [place] [id number] PCP - General Nurse Practitioner 10/27/24 documented as of this encounter
--- OUTSIDE RECORDS SUMMARY | 2024-11-02 08:58 | XMS_ITS | Encounter Summary ---
Author Organization [facility] Address [address] [place], [place] [address] Care Team Providers Care Mortgage Professional Name Role Phone Doug Bowles Primary Care Provider [phone] Source Comments In the event this information is protected by the Federal Confidentiality of Alcohol and Drug AbusePatient Records regulations: The Federal rules restrict any use of the information to criminally investigate or prosecute any alcohol or drug abuse patient.[facility] Encounter Details Date Type Department Care Team (Late st Contact Info) Description 10/25/2024 Abstract Hematology/Oncology [address] [place] [address] Kvng Perez MD [address] [place] [address] Social History Tobacco Use Types Packs/Day Years Used Date Smoking Tobacco: Former Cigarettes S tarted: 2017 Passive Smoke Exposure: Past Smokeless Tobacco: Never Alcohol Use Standard Drinks/Week Comments Not Currently 0 (1 standard drink = 0.6 oz pur e alcohol) Sex and Gender Information Value Date Recorded Sex Assigned at Not on file Legal Sex Male 8:04 AM EST Gender Identity Not on file Sexual Orientation Not on file documented as of this encounter Plan of Treatment Upcoming Encounters Date Type Department Care Team (Latest Contact Info) Description 11/10/2024 8:30 AM EDT Visit (SP) Office Hematology/Oncology [address] [place] [address] [place] [address] Kvng Perez MD [address] [place] [address] [place] [address] 2 week follow up 11/10/2024 9:00 AM EDT Office Visit Radiation Oncology [address] [facility] [address] Ezra Moreno MD [address] [place] [address] [place] [address] Consult dx Lung cancer 11/15/2024 11:00 AM EDT Office Visit Pulmonary Medicine [address] [address] Alexandre Robertson MD [address] [place], [place] [id number] New Consultation 11/15/2024 12:10 PM EDT Procedure Cardiology [address] [address] PreOp Testing 11/20/2024 11:30 AM EDT Hospital Encounter Admitting [address] [address] Alexandre Robertson MD [address] [place], [place] [id number] 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] 11/20/2024 11:30 AM EDT - 11/20/2024 1:30 PM EDT Surgery Admitting [address] [address] Alexandre Robertson MD [address] [place], [place] [address] BRONCHOSCOPY FLEXIBLE ADULT 11/30/2024 3:30 PM EDT [facility] Nutrition Therapy [address] [place] [address] Jesusita Pabon, RD [address] [place] [address] Follow up lung/ severe weight loss Scheduled Procedures Name Priority Associated Diagnoses Date/Ti me BRONCHOSCOPY FLEXIBLE ADULT Bronchiolar disease 11/20/2024 11:30 AM EDT documented as of this encounter Visit Diagnoses Not on filedocumented in this encounter Care Teams Mortgage Professional Relationship Specialty Start Date End Date Doug Bowles PCP - General 02/23/06 10/26/24 documented as of this encounter
--- OUTSIDE RECORDS SUMMARY | 2024-11-02 08:58 | XMS_ITS | Encounter Summary ---
Author Organization [facility] Address [address] [place] [address] Care Team Providers Care Subcontract Manager Name Role Phone LawDoug caalVamsi Primary Care Provider + [phone] Brandi Alvarado APRN.[facility] Primary Care Provider [phone] Source Comments In the event this information is protected by the Federal Confidentiality of Alcohol and Drug AbusePatient Records regulations: The Federal rules restrict any use of the information to criminally investigate or prosecute any alcohol or drug abuse patient.[facility] Reason for Visit * Reason Comments Results Dept. of Neurology R eport Encounter Details Date Type Department Care Team (Late st Contact Info) Description 03/25/2006 Abstract Neurology [address] [place] [address] Laith Norton MD [address] [place] [address] Results (Dept. of Neurology Report) Social History Tobacco Use Types Packs/Day Years Used Date Smoking Tobacco: Never Assessed Sex and Gender Information Value Date Recorded Sex Assigned at Not on file Legal Sex Male 8:04 AM EST Gender Identity Not on file Sexual Orientation Not on file documented as of this encounter Progress Notes * 03/25/2006 3:40 PM EDTAn extensive electrodiagnostic examination of the right upper extremity and limited study of the left upper extremity reveal bilateral median neuropathies, at or distal to the wrists (consistent withcarpal tunnel syndrome), moderate in degree electrically on the right and mild to moderate in degree electrically on the left. There is no evidence of a superimposed right cervical radiculopathy. Joe Cid MD Clinical Neurophysiology Fellow Laith Norton MD Staff documented in this encounter Plan of Treatment Upcoming Encounters Date Type Department Care Team (Latest Contact Info) Description 11/10/2024 8:30 AM EDT Visit (SP) Office Hematology/Oncology [address] [place] [address] [place] [address] Kvng Perez MD [address] [place] [address] [place] [address] 2 week follow up 11/10/2024 9:00 AM EDT Office Visit Radiation Oncology [address] [place] [address] [place] [address] Ezra Moreno MD [address] [place] [address] [place] [address] Consult dx Lung cancer 11/15/2024 11:00 AM EDT Office Visit Pulmonary Medicine [address] [address] Alexandre Robertson MD [address] [place] [address] New Consultation 11/15/2024 12:10 PM EDT Procedure Cardiology [address] [address] PreOp Testing 11/20/2024 11:30 AM EDT Hospital Encounter Admitting [address] [address] Alexandre Robertson MD [address] [place] [address] 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 Nutrition Therapy [address] [place] [address] Jesusita Pabon, JAMIL [address] [place] [address] Follow up lung/ severe weight loss Scheduled Procedures Name Priority Associated Diagnoses Date/Ti me BRONCHOSCOPY FLEXIBLE ADULT Bronchiolar disease 11/20/2024 11:30 AM EDT documented as of this encounter Visit Diagnoses Not on filedocumented in this encounter Care Teams Subcontract Manager Relationship Specialty Start Date End Date Doug Bowles PCP - General 02/23/06 10/26/24 Brandi Alvarado, ENGINEERING LEADER.CLINICAL DOCUMENTATION NURSE [address] [place] [address] PCP - General Nurse Practitioner 10/27/24 documented as of this encounter
--- OUTSIDE RECORDS SUMMARY | 2024-11-02 08:58 | XMS_ITS | Patient Health Record ---
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 Name Role Phone Brandi Fiore Primary Care Provider Unavail able José Luis Ragland Unavailable [phone] Chip Carbajal Unavailable [phone] Allergies Allergen (clinical drug ingredient) Drug/Non Drug Allergy documented on EMR Reaction Allergy Type Onset Date Status sulfamethoxazole / trimethoprim Bactrim fluid retention Drug Allergy Active codeine Codeine sweating Drug Allergy Active Results Component Value Reference Range Notes CT chest wo con Reviewed date:10/09/2024 06:58:44 AM Interpretation: Performing Lab: Notes/Report: Source Facility: [place] [address] CT Scan Report Signed Patient: FRANTZ ROA II MR#: [id number] : 1960 Acct:[id number] Age/Sex: 63 / M ADM Date: 10/06/24 Loc: CT Attending Dr: Chip Carbajal D.O. Ordering Physician: Chip Carbajal D.O. Date of Service: 10/06/24 Procedure(s): CT chest wo con Accession Number(s): [id number] cc: JOSÉ LUIS RAGLAND [place] [address] Patient Name: FRANTZ ROA MRN: [facility]:[id number] date: 1960 Sex: M Assigned Patient Location: CT Current Patient Location: CT Accession/Order Number: [id number] Exam Date: 10/06/2024 10:28 Report Date: 10/06/2024 10:33 At the request of: CHIP CARBAJAL DO Procedure: CT chest wo con CT CHEST WITHOUT IV CONTRAST: CLINICAL HISTORY: Chronic Cough COMPARISON: Chest 07/12/2024 TECHNIQUE: Spiral images were obtained through the chest without IV contrast. This CT exam was performed using one or more following dose reduction techniques: Automated exposure control, adjustment of the mA and/or kV according to patient size, or use of iterative reconstruction technique. FINDINGS: Mediastinum:Thoracic aorta appears normal in caliber. Pulmonary trunk appears nondilated. No pleural effusion. Prominent to enlarged mediastinal and right hilar lymph nodes. The esophagus is grossly unremarkable. Lungs:A mass is noted involving the superior segment of the right lower lobe extending into the subcarinal region measuring approximately 7.1 x 4.8 x 5.7 cm. There is presumed postobstructive atelectasis involving the right lower lobe. There is also associated tree-in-bud nodularity possibly represent endobronchial spread. Left lung appears clear. No pneumothorax. Trace right-sided pleural effusion. Abd:No acute findings. Soft tissues/Bones: No acute findings. Osseous structures demonstrate degenerative change. Posterior osteophytes are seen throughout the lumbar spine causing mild canal stenosis. CT/CT chest wo con IMPRESSION: A mass is noted involving the superior segment of the right lower lobe extending into the subcarinal region measuring approximately 7.1 x 4.8 x 5.7 cm. There is presumed postobstructive atelectasis involving the right lower lobe as well as tree-in-bud nodularity possibly represent endobronchial spread. There also appears to be prominent to enlarged mediastinal and right hilar lymph nodes suspicious for local metastatic disease. Further evaluation with PET/CT and tissue sampling is suggested as underlying malignancy is suspected. Impression dictated by: Neftali Lewis Jr., D.O. 10/06/2024 10:33 AM Dictation Location: [place] [address] Electronically authenticated by: [id number] Y Date: 10/06/2024 10:33 Dictated By: Neftali Lewis M.D. Signed By: 10/06/24 1035 DD/ 1033 TD/TT: Guidance Secretary: [address] [address] [address] Scan Report Signed Patient: MICHAEL ROA II MR#: [id number] : 1960 Acct:[id number] Age/Sex: 63 / M ADM Date: 10/06/24 Loc: CT Attending Dr: Chip Carbajal D.O. Ordering Physician: Chip Carbajal D.O. Date of Service: 10/06/24 Procedure(s): CT chest wo con Accession Number(s): [id number] cc: JOSÉ LUIS RAGLAND [place] [id number] Patient Name: FRANTZ ROA MRN: [facility]:[id number] date: 1960 Sex: M Assigned Patient Location: CT Current Patient Location: CT Accession/Order Numb er: [id number] Exam Date: 10/06/2024 10:28 Report Date: 10/06/2024 10:33 At the request of: CHIP CARBAJAL DO Procedure: CT chest wo con CT CHEST WITHOUT IV CONTRAST: CLINICAL HISTORY: Chronic Cough COMPARISON: Chest 07/12/2024 TECHNIQUE: Spiral im ages were obtained through the chest without IV contrast. This CT exam was per formed using one or more following dose reduction techniques: Automate d exposure control, adjustment of the mA and/or kV according to patient size, or use of iterative reconstruction technique. FINDINGS: Mediastinum:Thoracic aorta appears normal in caliber. Pulmonary trunk appears nondilated. No pleur al effusion. Prominent to enlarged mediastinal and right hilar lymph nodes. T he esophagus is grossly unremarkable. Lungs:A mass is note d involving the superior segment of the right lower lobe extending into the s ubcarinal region measuring approximately 7.1 x 4.8 x 5.7 cm. There is presume d postobstructive atelectasis involving the right lower lobe. There is also associated tree-in-bud nodularity possibly represent endobronchial spread . Left lung appears clear. No pneumothorax. Trace right-sided pleural effusion. Abd:No acute findings. Soft tissues/Bones: No acute findings. Osseous structures demonstrate degenerative change. Posterior osteophytes are seen throughout the lumbar spine causing mild c anal stenosis. C T/CT chest wo con IMPRESSION: A mass is noted invo lving the superior segment of the right lower lobe extending into the s ubcarinal region measuring approximately 7.1 x 4.8 x 5.7 cm. There is presume d postobstructive atelectasis involving the right lower lobe as well as tree -in-bud nodularity possibly represent endobronchial spread. There also a ppears to be prominent to enlarged mediastinal and right hilar lymph nodes malone spicious for local metastatic disease. Further evaluation with PET/CT and tiss ue sampling is suggested as underlying malignancy is suspected. Impression dictated by: Neftali Lewis Jr., D.O. 10/06/2024 10:33 AM Dictation Location: [place] [address] Electronically authe nticated by: [id number] Y Date: 10/06/2024 10:33 Dictated By: Neftali Michael i, M.D. Signed By: 10/06/24 1035 DD/ 1033 TD/TT: Guidance Secretary: ECG 12 lead Reviewed date:10/16/2024 09:53:23 AM Interpretation: Performing Lab: Notes/Report: Source Facility: [place] [address] [place] [address] Electrocardiograph Report Signed Patient: FRANTZ ROA II MR#: [id number] : 1960 Acct:[id number] Age/Sex: 63 / M ADM Date: 10/12/24 Loc: PST Attending Dr: Chip Carbajal D.O. Ordering Physician: Chip Carbajal D.O. 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 Measurements Intervals Reeves Rate: 93 P: 32 NH: 168 QRS: 33 QRSD: 133 T: 5 QT: 359 QTc: 447 Interpretive Statements SINUS RHYTHM RIGHT BUNDLE BRANCH BLOCK [120+ ms QRS DURATION, UPRIGHT V1, 40+ ms S IN I/aVL/V4/V5/V6] Abnormal ECG Compared to ECG 10/06/2024 19:04:05 Ectopic atrial tachycardia, unifocal no longer present Electronically Signed On 10-12-2024 23:28:47 EDT by AGATHA SALAZAR M.D. Dictated By: AGATHA SALAZAR Signed By: 10/12/242328 DD/ 1257 TD/TT: Guidance Secretary: [place] [address] Electrocardiograph Report Signed Patient: MICHAEL ROA II MR#: [id number] : 1960 Acct:[id number] Age/Sex: 63 / M ADM Date: 10/12/24 Loc: PST Attending Dr: Chip Carbajal D.O. Ordering Physician: Chip Carbajal D.O. 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 Measurements Intervals Reeves Rate: 93 P: 32 NH: 168 QRS: 33 QRSD: 133 T: 5 QT: 359 QTc: 447 Interpretive Statements SINUS RHYTHM RIGHT BUNDLE BRANCH BLOCK [120+ ms QRS DURATION, UPRIGHT V1, 40+ ms S IN I/aVL/V4/V5/V6] Abnormal ECG Compared to ECG 09/13 19:04:05 Ectopic atrial tachy cardia, unifocal no longer present Electronically Bev d On 10-12-2024 23:28:47 EDT by AGATHA SALAZAR M.D. Dictated By: AGATHA SALAZAR Signed By: 10/12/242328 DD/ 1257 TD/TT: Guidance Secretary: XR chest 2V Reviewed date:07/27/2024 09:45:36 AM Interpretation: Performing Lab: Notes/Report: Source Facility: [place] [address] XRay Report Signed Patient: FRANTZ ROA II MR#: [id number] : 1960 Acct:[id number] Age/Sex: 63 / M ADM Date: 06/22/24 Loc: RAD Attending Dr: JOSÉ LUIS RAGLAND Ordering Physician: JOSÉL UIS RAGLAND Date of Service: 06/22/24 Procedure(s): XR chest 2V Accession Number(s): [id number] cc: JOSÉ LUIS RAGLAND [place] [address] Patient Name: FRANTZ ROA MRN: [id number] date: 1960 Sex: M Assigned Patient Location: [facility] Current Patient Location: [facility] Accession/Order Number: [id number] Exam Date: 06/22/2024 11:05 Report Date: 06/22/2024 12:48 At the request of: JOSÉ LUIS RAGLAND Procedure: XR chest 2V PROCEDURE: XR chest 2V DATE: 06/22/2024 11:05 AM EST COMPARISONS: 01/20/2010 CLINICAL INDICATION: 63 years Male Chronic Cough FINDINGS: The cardiomediastinal silhouette and pulmonary vasculature are within normal limits. The lungs are clear. There is no evidence of pleural effusion or pneumothorax. XR/XR chest 2V IMPRESSION: Chest radiograph is within normal limits. Electronically authenticated by: ROSANA LYNCH Date: 06/22/2024 12:48 Dictated By: Rosana Lynch M.D. Signed By: 06/22/24 1250 DD/ 1248 TD/TT: Guidance Secretary: [place] [address] XRay Report Signed Patient: MICHAEL ROA II MR#: [id number] : 1960 Acct:[id number] Age/Sex: 63 / M ADM Date: 06/22/24 Loc: RAD Attending Dr: JOSÉ LUIS RAGLAND Ordering Physician: JOSÉ LUIS RAGLAND Date of Service: 06/22/24 Procedure(s): XR chest 2V Accession Number(s): [id number] cc: JOSÉ LUIS RAGLAND [address] [address] Patient Name: FRANTZ ROA MRN: [id number] date: 1960 Sex: M Assigned Patient Location: RAD Current Patient Location: RAD Accession/Order Numb er: [id number] Exam Date: 06/22/2024 11:05 Report Date: 06/22/2024 12:48 At the request of: JOSÉ LUIS RAGLAND Procedure: XR chest 2V PROCEDURE: XR chest 2V DATE: 06/22/2024 11:05 AM EST COMPARISONS: 01/20/2010 CLINICAL INDICATION: 63 years Male Chronic Cough FINDINGS: The cardiomediastina l silhouette and pulmonary vasculature are within normal limits. The lungs are clear. There is no evidence of pleural effusion or pneumothorax. X R/XR chest 2V IMPRESSION: Chest ra diograph is within normal limits. Electronically authe nticated by: ROSANA LYNCH Date: 06/22/2024 12:48 Dictated By: Rosana Lynch M.D. 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 Benita states the patient has been contacted and is scheduled for 10/27/2024 at 0900., Stanford Chan 10/30/2024 08:53:47 AM >[facility] CONSULT RECEIVED VIA FAX. SCANNED TO DR. CARBAJAL. Referral Priority Routine Referral Appointment Date 10/27/2024 Medications Medication SIG (Take, Route, Frequency, Duration) Notes Start Date End Date Status Tylenol 325 MG 1 tablet as needed Orally every 6 hrs Active Vitamin C 1000 MG 1 tablet Orally Once a day Active Zinc 50 MG 1 capsule Orally Onc e a day for 30 day(s) Active Metoprolol Succinate ER 50 MG TAKE 1 TABLET BY MOUTH EVERY DAY FOR 90 DAYS for 90 Active Mucinex DM 30-600 MG 1 tablet as needed Orally every 12 hrs Active Mucus Relief 400 MG 1 tablet as needed Orally every 4 hrs Active Multi Vitamin Mens - 1 tablet Orally Onc e a day for 30 day(s) Active Breztri Aerosphere 160-9-4.8 MCG/ACT 2 puffs Inhalation Twice a day 09/25/2024 Not-Taking Albuterol Sulfate HFA 108 (90 Base) MCG/ACT 1 puff as needed Inhalation every 4 hrs 09/13/2024 Not-Taking Cyclobenzaprine HCl 10 MG TAKE 1 TABLET BY MOUTH EVERY DAY AT BEDTIME NEEDED Orally for 90 days Active Fish Oil 1000 MG 1 capsule Orally Three times a day Active Benzonatate 200 MG 1 capsule as needed for cough Orally Three times a day for 30 days 10/23/2024 Active predniSONE 20 MG 1 tablet Orally QD for 30 days With food 10/23/2024 Active Amoxicillin-Pot Clavulanate 875-125 MG 1 tablet Orally BID for 10 days 10/23/2024 Active Immunizations Vaccine Route Administration Date Status Comme nts Flu, Flublok (96247) 18 yrs and older, single-dose syringe Unknown 03/31/2024 Administered Flu, Flublok (40349) 18yr+, single-dose (8560-5330) Unknown 03/16/2022 Administered Flu, Flublok (15826) 18yr+, single-dose (9441-6849) Unknown 04/21/2023 Administered Flu, Flucelvax (25024) 4 yrs and older, multi-dose vial (7431-3433) IM Intramuscular 04/02/2020 Administered Flu, Fluzone (18840) 6-35mo, multi-dose vial (1689-9593) Unknown 03/14/2017 Administered Flu, unspecified Unknown 04/07/2021 Administered Novavax 5 mcg/0.5 mL Unknown 03/31/2024 Administered SARS-COV-2 (COVID 19 Moderna - 100mcg/0.5mL) Unknown 08/28/2020 Administered SARS-COV-2 (COVID 19 Moderna - 100mcg/0.5mL) Unknown 09/25/2020 Administered Social History Tobacco Use: Social History Observation Description Date Details (start date - stop date) Former Smoker NA - NA Tobacco Control (Standard) Question Answer Notes Tobacco use: Former smoker How long has it been since y ou last smoked? 5-10 years Additional Findings: Tobacco non-user Ex -very heavy cigarette smoker (40+/day) Section Notes: , retired. Quit smoking in 2017 , retired. Quit smoking in 2017 , retired. Quit smoking in 2017 , retired. Quit smoking in 2017 , retired. Quit smoking in 2017 , retired. Quit smoking in 2017 , retired. Quit smoking in 2017 , retired. Quit smoking in 2017 , retired. Quit smoking in 2017 , retired. Quit smoking in 2017 , retired. Quit smoking in 2017 , retired. Quit smoking in 2017 , retired. Quit smoking in 2017 , retired. Quit smoking in 2017 , retired. Quit smoking in 2017 , retired. Quit smoking in 2017 Problems Problem Type SNOMED Code ICD Code Onset Dates Problem Status W/U Status Risk Notes Problem 172318855 Sleep disorder, unspecified (G47.9) Active confirmed Problem 32593508 Other chronic pain (G89.29) Active confirmed Problem 01158895 Essential hypertension (I10) Active confirmed Problem 571818293 BMI 33.0-33.9,adult (Z68.33) Active confirmed Problem Ex-tobacco user (finding) (793451272) History of tobacco abuse (Z87.891) Active confirmed Problem History of influenza (738841720) History of influenza (Z87.09) Active confirmed Problem 511389853 Acute gout of left foot, unspecified cause (M10.9) Active confirmed Problem 927679237 Chronic gout without tophus, unspecified cause, unspecified site (M1A.9XX0) Active confirmed Problem 36342109 Kidney stone on right side (N20.0) Active confirmed Problem Primary malignant neoplasm of lung (01817263) 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) Active confirmed Problem History of COVID-19 (5700354249394 12238) History of COVID-19 (Z86.16) Active confirmed Vital Signs Heart Rate 109 /min 10/23/2024 Temperature 97.1 degrees Fahrenheit 10/23/2024 Respiratory Rate 18 /min 10/23/2024 Blood pressure diastolic 70 mm Hg 10/23/2024 Oximetry 94 % 10/23/2024 Height 68 in 10/23/2024 Blood pressure systolic 105 mm Hg 10/23/2024 Weight 193.6 lbs 10/23/2024 BMI 29.43 kg/m2 10/23/2024 Procedures Procedure Date Ordered Date Performed Result Body Sit e Bronchoscopy (Bronchoscopy/L john BX, each) 10/09/2024 10/16/2024 N/A Encounters Encounter Location Date Provider Diagnosis [facility] [address] [place] [address] 01/18/2024 José Luis Ragland Other chronic pain G89.29 [facility] [address] [place] [address] 09/13/2024 José Luis Ragland [facility] [address] [place] [address] 09/21/2024 Chip [facility] [address] [place] [address] 10/09/2024 [facility] [address] [place] [address] 10/11/2024 [facility] [address] [place] [address] 10/17/2024 [facility] [address] [place] [address] 10/23/2024 [facility] [address] [place] [address] 09/25/2024 Chip [facility] Chronic cough R05.3 ; History of tobacco abuse Z87.891 ; History of COVID-19 Z86.16 and History of influenza Z87.09 [facility] [address] [place] [address] 10/09/2024 Chip [facility] Chronic cough R05.3 ; Right lower lobe lung mass R91.8 ; History of tobacco abuse Z87.891 ; History of COVID-19 Z86.16 and History of influenza Z87.09 [place] [address] [place] [address] 06/21/2024 José Luis Ragland Screening for colon cancer Z12.11 ; Encounter for general adult medical examination without abnormal findings Z00.00 ; Chronic cough R05.3 ; Essential hypertension I10 and Sleep disorder, unspecified G47.9 [facility] [address] [place] [address] 10/23/2024 Chip [facility] Squamous cell carcinoma of bronchus of right lung C34.91 ; Pneumonitis due to inhalation of food and vomit J69.0 and History of tobacco abuse Z87.[address] [address] 11/12/2023 José Luis Ragland Other chronic pain G89.29 ; Essential hypertension I10 and Sleep disorder, unspecified G47.[address] [address] 02/17/2024 José Luis Ragland Other chronic pain G89.29 ; Essential hypertension I10 and Sleep disorder, unspecified G47.[address] [address] 07/25/2024 José Luis Ragland Chronic cough R05.3 ; Essential hypertension I10 and Sleep disorder, unspecified G47.9 [facility] [address] [place] [address] 10/16/2024 Chip Carbajal Assessments Encounter Date Diagnosis (ICD Code) Assessment Notes Treatment Notes Treatment Clinical Notes Section Notes 11/12/2023 Other chronic pain (ICD-10 - G89.29) Stable, continue meloxicam and muscle relaxer as needed 11/12/2023 Essential hypertension (ICD-10 - I10) Improved, continue current med 06/21/2024 Screening for colon cancer (ICD-10 - Z12.11) 06/21/2024 Encounter for general adult medical examination without abnormal findings (ICD-10 - Z00.00) 02/17/2024 Other chronic pain (ICD-10 - G89.29) Stable, continue meloxicam daily and muscle relaxer as needed 02/17/2024 Essential hypertension (ICD-10 - I10) Continue current meds -will send refill of the metoprolol ER 50mg daily to [facility] 07/25/2024 Chronic cough (ICD-10 - R05.3) CXR was normal in June. Actually cough is improved since having covid! Will continue to monitor - if getting worse again, will try albuterol inhaler prn 07/25/2024 Essential hypertension (ICD-10 - I10) Stable, continue current meds 09/25/2024 Chronic cough (ICD-10 - R05.3) Chronic cough since June 2024. See HPI for details. Appears initially provoked by COVID-19, then worse again after dylan Influenza A. Prednisone only thing that seems to be providing relief. The worsening constitutional symptoms is quite concerning, including sweats, fevers, and decreased appetite with weight loss (30# unintentional over the past 3 months). Patient is also having some vague substernal pain. No hypoxemic readings today when I walked him (lowest SpO2 91%), but HR jumped into the 120's briefly (regular rhythm). Breath sounds are clear. CXR have been unremarkable. Discussed differential diagnoses. Major concern is cancer (gastroesophageal with substernal pain and difficulty swallowing?). Other considerations include secondary infection, empyema, abscess, etc. Post-inflammatory less likely. Pulmonary embolism remains in the differential, but presentation is not classic for it (not sharp pleuritic pain). Recommend ordering a chest CT without contrast (do not feel I would have enough information to get a contrasted study approved through insurance). For symptom control, will Rx longer prednisone taper and start Breztri @ 2 puffs BID. Rinse after use. Samples provided. He is not in a condition to get PFT done (coughing too much with just respiratory examination maneuvers). F/U 2 weeks to review chest CT results and response to treatment. Counseled patient that if his symptoms worsen, or if his SpO2 drops into the 80s to call 911/go to ER. He voiced understanding. 09/25/2024 History of tobacco abuse (ICD-10 - Z87.891) 2ppd x 37 years, quit 12/2016 No LDCT at this time d/t w/up for chronic cough. 10/09/2024 Chronic cough (ICD-10 - R05.3) Chronic cough since June 2024. Lung mass contributing to cough. Breztri ineffective - explained it would not help with occlusion of RLL bronchus. Prednisone has helped. He can stop Breztri for now. Shifting treatment plan to w/up of RLL mass. 10/09/2024 Right lower lobe lung mass (ICD-10 - R91.8) 5.5cm RLL mass, newly identified on CTA chest 10/06/2024. Questionable subcarinal lymphadenopathy vs. esophageal extension. Presentation is neoplasm until proven otherwise. These findings would explain many of his symptoms, including chronic cough, dyspnea, wheezing, sweats, fevers, and decreased appetite with weight loss (30# unintentional over the past 4 months), substernal chest pain, and difficulty swallowing. There is complete occlusion of the RLL bronchus - unclear if extrinsic compression vs. endobronchial obstruction. The occluded bronchus has caused complete atelectasis of the RLL. There is narrowing of the RML bronchus as well. Bronchoscopy is indicated to investigate and to attempt to obtain tissue for pathological diagnosis. Discussed risks of bronchoscopy with the patient in order to obtain informed consent, including, but not limited to: pain, aspiration of gastric contents, hemoptysis (from mild to massive hemorrhage), infection, hoarseness (with rare risk of temporary or permanent vocal cord damage/paralysis), pneumothorax (~5%) which may require chest tube placement, acute respiratory failure with need for non-invasive or invasive ventilation (temporary to long-term), ICU observation/admissi on, , a non-diagnostic study, or any other unforeseen complication. Risks of general anesthesia were deferred to the anesthesia department. After discussing risks & benefits, patient voiced agreement to proceed with bronchoscopy. Paperwork was completed. Plan to perform bronchoscopy with BAL, endobronchial brushings and biopsies. He may hold meloxicam until after the surgery. He is not on any anticoagulants/anti platelets. In addition to the bronchoscopy, PET is indicated. The aortopulmonary lymph node (1.2cm) is not ameanable to bronchoscopic biopsy (~station 5) and would require medistinoscopy for biopsy. Given high concern for neoplasm, need to assess for metastatic spread. Patient voiced agreement to get PET. Patient to return 2 weeks (or sooner) after bronchoscopy to review results. 01/18/2024 Other chronic pain (ICD-10 - G89.29) 10/23/2024 Squamous cell carcinoma of bronchus of [...] will see if an internal referral to [facility] interventional pulmonology can be made. If not, I can place one. He continues to lose weight. He was 201.8# on 10/09/2024 - today (10/23/2024), he is 193.6#. There is significant mediastinal lymphadenopathy which appears to be compressing the mid-esophagus, leading to esophgaela dysphagia, limiting further his caloric intake. Discussed healthy diet, consider Ensure or Boost. 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 Will have him [...] - Z87.891) 2ppd x 37 years, quit 12/201610/09/2024 History of tobacco abuse (ICD-10 - Z87.891) 2ppd x 37 years, quit 12/201609/25/2024 History of COVID-19 (ICD-10 - Z86.16) 07/25/2024 Sleep disorder, unspecified (ICD-10 - G47.9) Continue melatonin 02/17/2024 Sleep disorder, unspecified (ICD-10 - G47.9) Improved, continue melatonin 06/21/2024 Chronic cough (ICD-10 - R05.3) Get CXR in the next few days and then will call with results - likely will start an inhaler. COPD? 11/12/2023 Sleep disorder, unspecified (ICD-10 - G47.9) Improved with melatonin 06/21/2024 Essential hypertension (ICD-10 - I10) COntinue the metoprolol 09/25/2024 History of influenza (ICD-10 - Z87.09) 10/09/2024 History of COVID-19 (ICD-10 - Z86.16) 10/09/2024 History of influenza (ICD-10 - Z87.09) 06/21/2024 Sleep disorder, unspecified (ICD-10 - G47.9) Continue melatonin, try calming music before bed 10/23/2024 Other Plan Of Treatment Pending Test Test Name Order Date XR Thoracic Spine (3 views) dorsal * XR Chest PA and Lateral (Routine CXR) * 06/21/2024 Cologuard 06/21/2024 Next Appt Details Provider Name:Chip Carbajal, 11/07/2024 01:00:00 PM, [address] [place], [address], Insurance Providers Payer Name Payer Address Payer Phone Subscriber Number Group Number Insured Name Patient Relationship to Insured Coverage Start Date Coverage End Date [employer] ACCESS PPO PLUS LOCAL PLAN [address] [place] [address] [id number] Frantz Roa Self - patient is the insured 3 Medical (General) History Medical History History ICD Code Gout M10.9 BPH (benign prostatic hyperplasia) N40.0 Nephrolithiasis N20.0 HTN (hypertension) I10 OA (osteoarthritis) M19.90 History of COVID-19 Z86.16 History of influenza Z87.09 History of tobacco abuse Z87.891 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 Martinez 2015 Left carpal tunnel release - Dr. Arsalan barahona 12/23/17 Right carpal tunnel release - Dr. Hernandez ic 08/25/18 TURP - Dr. Vásquez 05/17/19 Bronchoscopy 10/17/2024 Hospitalization History Reason Date(Month/Year) Lung mass/Hypoxia-[facility] 10/06/2024
--- OUTSIDE RECORDS SUMMARY | 2024-11-02 08:58 | XMS_ITS | Encounter Summary ---
Author Organization [facility] Address [address] [place] [id number] Care Team Providers Care Product Safety Officer Name Role Phone Jenny Brandi Fowler APRN.[facility] Primary Care Provider [phone] Source Comments In the event this information is protected by the Federal Confidentiality of Alcohol and Drug AbusePatient Records regulations: The Federal rules restrict any use of the information to criminally investigate or prosecute any alcohol or drug abuse patient.[facility] Reason for Visit * Reason Comments Patient Update Appointment Encounter Details Date Type Department Care Team (Late st Contact Info) Description 11/01/2024 Telephone Hematology/Oncology [address] [place] [address] [place] [address] Brittany Marie RN Patient Update; Appointment Social History Tobacco Use Types Packs/Day Years [...] is lower risk 9 10/27/2024 Data from: https://www.neighborhoodatlas.medicine.[employer]/. Last address used for calculation [address] 10/27/2024 Sex and Gender Information Value Date Recorded Sex Assigned at Not on file Legal Sex Male 8:04 AM EST Gender Identity Not on file Sexual Orientation Not on file documented as of this encounter Miscellaneous Notes * Telephone Encounter - Brittany Marie RN - 11/01/2024 3:37 PM EDT notified and agreeable to appts, as previously scheduled. Brittany Marie RN * Telephone Encounter - Kvng Perez MD - 11/01/2024 3:32 PM EDT Keep the appts as scheduled. Thanks * Telephone Encounter - Brittany Marie RN - 11/01/2024 3:27 PM EDT Pt reports pt is scheduled at [facility] for a second bronchoscopy 11/20/24 to clear an obtruction that allow him to breath out, but not inhale adequately. Pt is scheduled for Brain MRI tomorrow AV/RYAN: she is asking if they should keeps appts, as previously scheduled 11/10, or reschedule following the second bronch to alleviate the obstruction? Brittany Marie RN documented in this encounter Plan of Treatment Upcoming Encounters Date Type Department Care Team (Latest Contact Info) Description 11/10/2024 8:30 AM EDT Visit (SP) Office Hematology/Oncology [address] [place] [address] [place] [address] Kvng Perez MD [address] [place] [address] [place] [address] 2 week follow up 11/10/2024 9:00 AM EDT Office Visit Radiation Oncology [address] [facility] [place] [address] Ezra Moreno MD [address] [facility] [place] [address] Consult dx Lung cancer 11/15/2024 11:00 AM EDT Office Visit Pulmonary Medicine [address] [address] Alexandre Robertson MD [address] [place] [address] New Consultation 11/15/2024 12:10 PM EDT Procedure Cardiology [address] [address] PreOp Testing 11/20/2024 11:30 AM EDT Hospital Encounter Admitting [address] [address] Alexandre Robertson MD [address] [place] [address] 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] 11/20/2024 11:30 AM EDT - 11/20/2024 1:30 PM EDT Surgery Admitting [address] [address] Alexandre Robertson MD [address] [place], [place] [id number] BRONCHOSCOPY FLEXIBLE ADULT 11/30/2024 3:30 PM EDT [facility] Nutrition Therapy [address] [place] [address] Bee Pabon, RD [address] [place] [address] Follow up lung/ severe weight loss Scheduled Procedures Name Priority Associated Diagnoses Date/Ti me BRONCHOSCOPY FLEXIBLE ADULT Bronchiolar disease 11/20/2024 11:30 AM EDT documented as of this encounter Visit Diagnoses Not on filedocumented in this encounter Care Teams Product Safety Officer Relationship Specialty Start Date End Date Brandi Alvarado, CRANE CREW SUPERVISOR.MANAGER FINANCIAL [address] [place] [address] PCP - General Nurse Practitioner 10/27/24 documented as of this encounter
[2024-11-02 08:59] VITALS: BP 135/85; PULSE 109; TEMP 36.8; O2SAT 97; BMI 31.2
--- NOTE | 2024-11-02 09:11 | ECG_ITS ---
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
[2024-11-02 09:27] LABS: Basophils Absolute Auto 0.1 10^3/uL (0.0-0.1); Basophils Percent Auto 0.7 % (0.2-2.0); Eosinophils Absolute Auto 0.9 10^3/uL (0.0-0.7); Hematocrit 39.5 % (42.0-54.0); Hemoglobin 12.8 g/dL (14.0-18.0); Immature Granulocytes Abs Auto 0.24 10^3/uL (0.00-0.03); Immature Granulocytes Pct Auto 1.6 % (0.0-0.5); Lymphocytes Absolute Auto 2.2 10^3/uL (1.2-3.8); Lymphocytes Percent Auto 14.7 % (20.5-60.0); Mean Corpuscular HGB Conc 32.4 g/dL (29.9-35.2); Mean Corpuscular Hemoglobin 27.9 pg (25.9-34.0); Mean Corpuscular Volume 86.1 fL (80.0-94.0); Mean Platelet Volume 8.8 fL (9.5-13.5); Monocytes Percent Auto 6.9 % (1.7-12.0); Neutrophils Absolute Auto 10.4 10^3/uL (1.4-6.5); Neutrophils Percent Auto 70.1 % (43.0-75.0); Platelet Count 301 10^3/uL (150-450); Red Blood Count 4.59 10^6/uL (4.70-6.10); Red Cell Distribution Width 15.2 % (11.0-15.0); White Blood Count 14.9 10^3/uL (4.0-11.0)
[2024-11-02] MEDS: 0.9 % SODIUM CHLORIDE 1,000 ML 1000 ML IV (09:34)
[2024-11-02 09:37] VITALS: PULSE 102
[2024-11-02 09:37] LABS: Anion Gap 15.4; BUN Creatinine Ratio 26.7; Calcium 9.8 mg/dL (8.5-10.1); Carbon Dioxide 24.7 mmol/L (21.0-32.0); Chloride 100 mmol/L (98-107); Estimated GFR (African America >60 (>=60 mL/min/1.73m^2); Estimated GFR (Non-African Ame >60 (>=60 mL/min/1.73m^2); Glucose 104 mg/dL (74-106); Potassium 4.1 mmol/L (3.5-5.1); Sodium 136 mmol/L (136-145)
--- NOTE | 2024-11-02 10:38 | ED.GENADUL1 ---
HPI HPI - General Adult General Chief complaint: Dizziness Stated complaint: LIGHT HEADEDNESS DIZZY SOB CHEST PAINS Time Seen by Provider: 11/02/24 09:09 Source: patient Mode of arrival: walk-in Limitations: no limitations History of Present Illness HPI narrative: 64-year-old male presented to the emergency department for episodes of dizziness. It started yesterday. He describes a spinning sensation which comes on abruptly and last for 6 to 8 seconds and then goes away abruptly. He does not complain of a headache or any localized weakness. He has a recent diagnosis of lung cancer and has not yet started any chemotherapy or radiation therapy. He states he has not had this symptom previously. No visual changes. Related Data Home Medications ?Medication ?Instructions ?Recorded ?Confirmed albuterol sulfate 90 mcg/actuation 2 puff inhalation Q4H PRN 10/06/24 11/02/24 aerosol inhaler shortness of breath or wheezing cyclobenzaprine 10 mg tablet 10 mg PO .qhs 10/06/24 11/02/24 meloxicam 7.5 mg tablet 7.5 mg PO QDAY 10/06/24 11/02/24 metoprolol succinate 50 mg 50 mg PO QPM 10/06/24 11/02/24 tablet,extended release 24 hr acetaminophen 325 mg tablet 650 mg PO Q6H PRN pain 10/12/24 11/02/24 (Tylenol) ascorbic acid (vitamin C) 1,000 mg 1 g PO DAILY 10/12/24 11/02/24 capsule cetirizine 10 mg tablet (24Hour 10 mg PO DAILY 10/12/24 11/02/24 Allergy) dextromethorphan-guaifenesin 30 1 tab PO DAILY 10/12/24 11/02/24 mg-600 mg tablet extended [id number] hr (Mucinex DM) fluticasone propionate 50 1 spray intranasal DAILY PRN nasal 10/12/24 11/02/24 mcg/actuation nasal congestion spray,suspension (24 Hour Allergy Relief) ldzkcgrhttvo-zxkvhuzn-edsllj 1 tab PO DAILY 10/12/24 11/02/24 tablet (Multivitamin 50 Plus tablet) turmeric 400 mg capsule 400 mg PO DAILY 10/12/24 11/02/24 zinc gluconate 50 mg tablet 50 mg PO DAILY 10/12/24 11/02/24 benzonatate 200 mg capsule 200 mg PO DAILY 11/02/24 11/02/24 Previous Rx's ?Medication ?Instructions ?Recorded meclizine 25 mg tablet 25 mg PO TID #20 tabs 11/02/24 Allergies Allergy/AdvReac Type Severity Reaction Status Date / Time codeine Allergy Severe Flushing Verified 10/16/24 06:42 sulfamethoxazole (From AdvReac Severe difficulty Verified 10/16/24 06:42 Bactrim) urinating trimethoprim (From Bactrim) AdvReac Severe Unknown Verified 10/16/24 06:42 Opioid HPI Opioid Management Most Recent Opioid Data: Last Pain Scale 0 10/08/24, 11:00 Last ORT Total Score 0 10/06/24, 23:47 Last ORT Risk Category Low Risk 10/06/24, 23:47 Review of Systems ROS Narrative A ten point review of systems is negative except as noted above. [facility] Medical History (Updated 11/02/24 @ 12:24 by Jake Porras MD) Carpal tunnel syndrome ?G56.00 - Carpal tunnel syndrome, unspecified upper limb (ICD-10) Back pain ?M54.9 - Dorsalgia, unspecified (ICD-10) Arthritis ?M19.90 - Unspecified osteoarthritis, unspecified site (ICD-10) Snores ?R06.83 - Snoring (ICD-10) Sleep apnea ?G47.30 - Sleep apnea, unspecified (ICD-10) Influenza ?J11.1 - Influenza due to unidentified influenza virus with other respiratory manifestations (ICD-10) Right lower lobe lung mass ?R91.8 - Other nonspecific abnormal finding of lung field (ICD-10) Skin cancer ?C44.90 - Unspecified malignant neoplasm of skin, unspecified (ICD-10) Hypoxia ?R09.02 - Hypoxemia (ICD-10) 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 - Shortness of breath (ICD-10) ?U09.9 - Post covid-19 condition, unspecified (ICD-10) HTN (hypertension) ?I10 - Essential (primary) hypertension (ICD-10) KERR (dyspnea on exertion) ?R06.09 - Other forms of dyspnea (ICD-10) Pneumonia ?J18.9 - Pneumonia, unspecified organism (ICD-10) COVID-19 ?U07.1 - COVID-19 (ICD-10) History of COVID-19 ?Z86.16 - Personal history of COVID-19 (ICD-10) Surgical History (Updated 10/12/24 @ 12:46 by Macy Goodrich NP) H/O transurethral resection of prostate ?Z98.890 - Other specified postprocedural states (ICD-10) ?Z90.79 - Acquired absence of other genital organ(s) (ICD-10) History of colonoscopy ?Z98.890 - Other specified postprocedural states (ICD-10) History of myringotomy ?Z98.890 - Other specified postprocedural states (ICD-10) History of carpal tunnel release ?Z98.890 - Other specified postprocedural states (ICD-10) History of carpal tunnel surgery ?Z98.890 - Other specified postprocedural states (ICD-10) History of tonsillectomy ?Z90.89 - Acquired absence of other organs (ICD-10) Family History (Updated 10/06/24 @ 23:50 by Svetlana Kimball RN) Father Family history of myocardial infarction Son Family history of stroke Other Family history of CHF (congestive heart failure) Social History (Updated 10/06/24 @ 23:51 by Svetlana Kimball RN) Within the past year, how often did you have a drink containing alcohol: never Score interpretation: A score less than 4 is consistent with normal alcohol consumption. Smoking status: Former smoker Non-prescribed substance use: denies use Highest level of school completed/degree received: Associate degree: occupational, technical, vocational program Are you now , , , , never or living with a partner: In a typical week, how many times do you talk on the telephone with family, friends, or neighbors: once per week How often do you get together with friends or relatives: once per week Little interest or pleasure in doing things: not at all Feeling down, depressed, or hopeless: not at all Do you think of yourself as: straight/heterosexual Gender Identity: male Exam Narrative Exam Narrative: Nurses note and vital signs reviewed and patient is not hypoxic. General: The patient appears well and in no apparent distress. Patient is resting comfortably on cart. Skin: Warm, dry, no pallor noted. There is no rash noted. Head: Normocephalic, atraumatic Eye: Normal conjunctiva, no drainage, EOMI. PERRL Ears, Nose, Mouth, and Throat: oral mucosa is moist. Nares patent. Cardiovascular: Regular Rate and Rhythm Respiratory: Patient is in no distress, no accessory muscle use, lungs are clear to auscultation, no wheezing, rales or rhonchi Back: non-tender GI: Soft and nontender under Musculoskeletal: The patient has no evidence of calf tenderness, no pitting edema, symmetrical pulses noted bilaterally Neurological: A&O, normal speech; upper and lower extremity strength 5 out of 5 and symmetric. Neck has full range of motion. Cranial nerves II through XII intact Psychiatric: Cooperative Constitutional Vital Signs, click to edit/add: Last Vital Signs Temp 98.3 F 11/02/24 08:59 Pulse 95 H 11/02/24 12:16 Resp 18 11/02/24 12:16 BP 120/72 11/02/24 12:16 Pulse Ox 97 11/02/24 12:16 O2 Del Method Room Air 11/02/24 08:59 Course Vital Signs Vital signs: Vital Signs Temperature 98.3 F 11/02/24 08:59 Pulse Rate 109 H 11/02/24 08:59 Respiratory Rate 20 11/02/24 08:59 Blood Pressure 135/85 11/02/24 08:59 Pulse Oximetry 97 11/02/24 08:59 Oxygen Delivery Method Room Air 11/02/24 08:59 Temperature 98.3 F 11/02/24 08:59 Pulse Rate 95 H 11/02/24 12:16 Respiratory Rate 18 11/02/24 12:16 Blood Pressure 120/72 11/02/24 12:16 Pulse Oximetry 97 11/02/24 12:16 Oxygen Delivery Method Room Air 11/02/24 08:59 Medical Decision Making MDM Narrative Medical decision making narrative: Blood work is negative and his symptoms seem to have abated. He was given IV fluids. He had an outpatient MRI today and the report is pending. He was given a prescription for Antivert as well and his is already made an appointment to see a denitrator operator. Treatment diagnosis and follow-up were discussed with the patient and his . Differential Diagnosis Differential Diagnosis: Dehydration, brain metastasis, vertigo, anemia Lab Data Lab results reviewed: Yes I reviewed the patient's lab results Labs: Lab Results 11/02/24 Range/Units 09:22 WBC 14.9 H (4.0-11.0) 10^3/uL RBC 4.59 L (4.70-6.10) 10^6/uL Hgb 12.8 L (14.0-18.0) g/dL Hct 39.5 L (42.0-54.0) % MCV 86.1 (80.0-94.0) fL MCH 27.9 (25.9-34.0) pg MCHC 32.4 (29.9-35.2) g/dL RDW 15.2 H (11.0-15.0) % Plt Count 301 (150-450) 10^3/uL MPV 8.8 L (9.5-13.5) fL Neut % (Auto) 70.1 (43.0-75.0) % Lymph % (Auto) 14.7 L (20.5-60.0) % Twiggs % (Auto) 6.9 (1.7-12.0) % Eos % (Auto) 6.0 (0.9-7.0) % Baso % (Auto) 0.7 (0.2-2.0) % Neut # (Auto) 10.4 H (1.4-6.5) 10^3/uL Lymph # (Auto) 2.2 (1.2-3.8) 10^3/uL Twiggs # (Auto) 1.0 H (0.3-0.8) 10^3/uL Eos # (Auto) 0.9 H (0.0-0.7) 10^3/uL Baso # (Auto) 0.1 (0.0-0.1) 10^3/uL Abs Immat Gran (auto) 0.24 H (0.00-0.03) 10^3/uL Imm/Tot Granulo (auto) 1.6 H (0.0-0.5) % Sodium 136 (136-145) mmol/L Potassium 4.1 (3.5-5.1) mmol/L Chloride 100 (98-107) mmol/L Carbon Dioxide 24.7 (21.0-32.0) mmol/L Anion Gap 15.4 BUN 23.0 H (7.0-18.0) mg/dL Creatinine 0.86 (0.70-1.30) mg/dL Est GFR ( Amer) >60 (>=60 mL/min/1.73m^2) Est GFR (Non-Af Amer) >60 (>=60 mL/min/1.73m^2) BUN/Creatinine Ratio 26.7 Glucose 104 (74-106) mg/dL Calcium 9.8 (8.5-10.1) mg/dL ECG Data Attestation: I personally reviewed and interpreted this ECG as follows: (EKG on my interpretation shows sinus rhythm with a rate of 107) Discharge Plan Discharge Chief Complaint: Dizziness Clinical Impression: Vertigo Patient Disposition: Home, Self-Care Time of Disposition Decision: 12:24 Condition: Good Mode of Transportation: Private Vehicle Prescriptions / Home Meds: New meclizine 25 mg tablet 25 mg PO TID Qty: 20 0RF No Action albuterol sulfate 90 mcg/actuation HFA aerosol inhaler 2 puff INHALATION Q4H PRN (Reason: shortness of breath or wheezing) cyclobenzaprine 10 mg tablet 10 mg PO .qhs meloxicam 7.5 mg tablet 7.5 mg PO QDAY metoprolol succinate 50 mg tablet extended release 24 hr 50 mg PO QPM Mucinex DM 30-600 mg tablet extended release 12 hr 1 tab PO DAILY Multivitamin 50 Plus Tablet 1 tab PO DAILY acetaminophen [Tylenol] 325 mg tablet 650 mg PO Q6H PRN (Reason: pain) ascorbic acid (vitamin C) 1,000 mg capsule 1 g PO DAILY zinc gluconate 50 mg tablet 50 mg PO DAILY turmeric 400 mg capsule 400 mg PO DAILY cetirizine [24Hour Allergy] 10 mg tablet 10 mg PO DAILY fluticasone propionate [24 Hour Allergy Relief] 50 mcg/actuation spray,suspension 1 spray intranasal DAILY PRN (Reason: nasal congestion) Rx Instructions: administer into each nostril benzonatate 200 mg capsule 200 mg PO DAILY Print Language: Dominican Instructions: Vertigo (ED) Referrals: CARLOS COLLINS [Primary Care Provider, SACK FILLER] - 1 week
[2024-11-02 11:10] VITALS: BP 109/68; PULSE 99; O2SAT 96
[2024-11-02 12:16] VITALS: BP 120/72; PULSE 95; O2SAT 97
== END 2024-11-02 12:31 | disposition home or self-care (01) ==
PROVIDERS: Emergency Provider Emergency Medicine; PCP Nurse Practitioner
DX: R42 Dizziness and giddiness (principal); C34.31 Malignant neoplasm of lower lobe, right bronchus or lung
CPT/HCPCS: 36415; 80048; 81001; 85025; 93005; 99285

== ENCOUNTER 2024-11-02 09:58 | Outpatient (OUT) | payer BC, SELFPAY ==
--- NOTE | 2024-11-02 10:00 | MR_ITS ---
[address] [address] Patient Name: JATIN KOCH MRN: [id number] date: 1960 Sex: M Assigned Patient Location: MRI Current Patient Location: Accession/Order Number: [id number] Exam Date: 11/02/2024 12:43 Report Date: 11/02/2024 12:53 At the request of: RASHEED ZHANG MD Procedure: MR head/brain wo/w con MR head/brain wo/w con 11/02/2024 11:07 AM SIGN AND SYMPTOMS: ^Malignant Neoplasm Of Lower Lobe Of Right Lung C34.31 episodes of dizziness PROTOCOL: Multiplanar multisequence MR images of the brain with and without IV contrast CONTRAST: 18 mL of intravenous Dotarem COMPARISON: None. FINDINGS: Extra axial spaces: Age appropriate. Hemorrhage: None. Ventricular system: Within normal limits. Basal cisterns: Within normal limits and not effaced. Cerebral parenchyma: Focal T2 and FLAIR hyperintense foci are noted suggesting chronic microvascular ischemic change. Midline shift: None.. Cerebellum: Within normal limits. Brainstem: Within normal limits. OTHER: Calvarium: Normal marrow signal. Vascular system: Satisfactory flow voids within the anterior and posterior circulation. Visualized Paranasal sinuses: Mucosal thickening is noted in the maxillary sinuses. Visualized Orbits: Within normal limits. Visualized upper cervical spine: Within normal limits. Sella and skull base: Within normal limits. MR/MR head/brain wo/w con IMPRESSION: No acute intracranial pathology or abnormal postcontrast enhancement to suggest intracranial metastatic disease. Chronic microvascular ischemic changes are noted as above. Impression dictated by: Jose Antonio Lainez M.D. 11/02/2024 12:53 PM Dictation Location: [place] [address] Electronically authenticated by: [id number] Y Date: 11/02/2024 12:53
--- NOTE | 2024-11-02 10:06 | XR_ITS ---
[place] [address] Patient Name: JATIN KOCH MRN: [id number] date: 1960 Sex: M Assigned Patient Location: MRI Current Patient Location: MRI Accession/Order Number: [id number] Exam Date: 11/02/2024 10:21 Report Date: 11/02/2024 10:22 At the request of: RASHEED ZHANG MD Procedure: XR foreign body eye ADIS XR foreign body eye ADIS 11/02/2024 10:13 AM SIGNS AND SYMPTOMS: ^Foreign Body Screening PROTOCOL: Frontal and lateral radiographs of the soft tissues of the orbits COMPARISON: None FINDINGS: No abnormal radiopaque foreign body. The bony rim of the orbits is intact. The visualized paranasal sinuses are well aerated. XR/XR foreign body eye ADIS IMPRESSION: No abnormal radiopaque foreign body. Impression dictated by: Jose Antonio Lainez M.D. 11/02/2024 10:22 AM Dictation Location: [place] [address] Electronically authenticated by: [id number] Y Date: 11/02/2024 10:22
--- OUTSIDE RECORDS SUMMARY | 2024-11-02 11:40 | XMS_ITS ---
Author Name Auto Generated Organization OHIP Care Team Providers Care Strategic Manager Name Role Phone BEE ALCANTARA Attending Unavailable DENNIS, BRANDI Fowler Primary Care Unavailable RASHEED PEREZ Attending Unavailable SAMSA, CHIP P Referring Unavailable DENNIS, BRANDI L Primary Care Unavailable Samsa, Chip P Admitting Unavailable Samsa, Chip P Attending Unavailable De Oliveira, Tonja L Attending Unavailable Ragland, Alina A Primary Care Unavailable De Oliveira, Tonja L Admitting Unavailable SAMSA, CHIP P Referring Unavailable SAMSA, CHIP P Attending Unavailable Dennis, Brandi L Attending Unavailable Dennis, Brandi L Attending Unavailable PROBLEMS DATE TYPE CONDITION / CODE ATTENDING STATUS [facility] 10/30/2024 Active Malignant neopla sm of lower lobe of right lung (HCC) / C34.31(ICD-10) BEE ALCANTARA Active [facility] PROCEDURES No Procedure Records Found RESULTS CNPN Observed: 11/01/2024 12:00 AM Status: COMPLETED Source: [facility] Telephone (HEMASA) FRANTZ ROA ([id number]) 1960 M Date Time Provider Department 11/01/24 BRITTANY MARIE During your visit today, we recorded the following information about you: Brittany Marie RN 11/01/2024 3:30 PM Addendum Pt reports pt is scheduled at [facility] for a second bronchoscopy 11/20/24 to clear [...] Observed: 11/01/2024 12:00 AM Status: COMPLETED Source: [facility] Telephone ([id number]) FRANTZ ROA ([id number]) 1960 Date Time Provider Department 11/01/24 ROBERT NOLASCO [id number] During your visit today, we recorded the [...] Observed: 10/31/2024 4:33 PM Status: COMPLETED Source: [facility] HNO ID: [id number] Author: DENNIS HERNÁNDEZ RN Service: ? Author [...] on anticoagulants/anti-plt therapy?: No Nursing Considerations: (ie: custodial, TB, respiratory isolation, clinical trial, Specific protocol etc.) none Additional notes to the tipple operator: OSH Bronchoscopy showed an mass obstructing BI, patient requested IP evaluation. SqCell Carcinoma. T4N2M0 IIIB for now, starting chemorads Consultation request/referral by: Referring Physician: Dr. Rasheed Perez Address: [facility] Mae Phone #: [phone] Fax #: [phone] Reviewed by: MD Maryuri Aguilar MD October 31, 2024 4:33 PM Addendum: CBC with diff: No results found for this basename: WBC,RBC,HB,HCT,MCV,MCH,MCHC,RDWCV,PLT,MPV,NEUTP,LYMPHP,MONOP,EODINP,BASOP,ABSNEU T,ABSLYM,ABSMONO,ABSEOSIN,ABSBASO No results found for: K No results found for: NA No results found for: BUN No results found for: CREAT PROGRESS Observed: 10/27/2024 9:00 AM Status: COMPLETED Source: [facility] HNO ID: [id number] Author: RASHEED PEREZ MD Service: ? Author Type: Physician Type: Progress Notes Filed: 10/27/2024 09:56 Note Text: PATIENT NAME: Frantz Roa CLINIC NO.: [id number] ATTENDING PHYSICIAN: Rasheed Perez MD DATE OF SERVICE: October 27, [address] Chip Carbajal [address] [place] [address] thank you for referring Frantz Roa II for an opinion regarding Lung cancer. CHIEF COMPLAINT: Lung cancer HPI: Frantz Roa II is a 63 year old year old male with PMH of HTN referred to us for lung cancer. CT chest : PET scan: C/o cough and lost 30lbs. Quit smoking in 2017. Smoked 1 pk/day for 40yrs. 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 C/o hemoptysis. C/o [...] in [address] Chip Carbajal [address] [place] [address] thank you for allowing me to participate in Frantz Roa II care, if there are any questions or concerns please do not hesitate to contact me at the number below. I spent a total of 60 minutes on the date of the service which included preparing to see the patient, snut-ka-crxy patient care, completing clinical documentation, obtaining and/or reviewing separately obtained history, performing a medically appropriate examination, counseling and educating the patient/family/caregiver, ordering medications, tests, or procedures, communicating with other HCPs (not separately reported), independently interpreting results (not separately reported), communicating results to the patient/family/caregiver, and care coordination (not separately reported). Rasheed Perez MD. Hematology/Medical Oncology [facility] [phone] CC: CNOVSP Observed: 10/27/2024 9:00 AM Status: COMPLETED Source: [facility] Visit (SP) Office (HEMASA) FRANTZ ROA ([id number]) 1960 M Date Time Provider Department 10/27/24 [...] PATIENT NAME: Frantz Roa II CLINIC NO.: [id number] ATTENDING PHYSICIAN: Rasheed Perez MD DATE OF SERVICE: October 27, [address] Chip Carbajal [address] [place] [address] thank you for referring Frantz Roa II for an opinion regarding Lung cancer. CHIEF COMPLAINT: Lung cancer HPI: Frantz Roa II is a 63 year old year old male with PMH of HTN referred to us for lung cancer. CT chest : PET scan: C/o cough and lost 30lbs. Quit smoking in 2017. Smoked 1 pk/day for 40yrs. 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 C/o hemoptysis. C/o [...] in [address] Chip Carbajal [address] [place] [address] thank you for allowing me to participate in Frantz Roa II care, if there are any questions or concerns please do not hesitate to contact me at the number below. I spent a total of 60 minutes on the date of the service which included preparing to see the patient, ncgb-ep-wwxf patient care, completing clinical documentation, obtaining and/or reviewing separately obtained history, performing a medically appropriate examination, counseling and educating the patient/family/caregiver, ordering medications, tests, or procedures, communicating with other HCPs (not separately reported), independently interpreting results (not separately reported), communicating results to the patient/family/caregiver, and care coordination (not separately reported). Rasheed Perez MD. Hematology/Medical Oncology [place] [phone] CC: Rasheed Perez MD 10/27/2024 9:26 AM Signed Refer to radiation oncology Refer to interventional pulmonology Ordered MRI brain F/u in 2 weeks Rasheed Perez MD 10/27/2024 9:57 AM Signed Addended by: RASHEED PEREZ on: 10/27/2024 09:57 AM Modules accepted: Orders Referring Provider: CHIP CARBAJAL [[id number]] Allergies As of Date: 10/27/2024 Noted Allergy [...] lung (HCC) [C34.31] Order(s):MRI BRAIN WO/W IVCON [9723838] Order #: [id number] FUTURE iv contrast (will be provided with [...] eachRfl: 0 RAD/ONC CONSULT [9037] Order #: [id number]: 1 FUTURE CONSULT TO PULMONARY MEDICINE [6266684] Order #: [id number]: 1 FUTURE CONSULT TO ONCOLOGY NUTRITION [0065171] Order #: [id number]: 1 FUTURE COMPLETE BLOOD COUNT AND DIFFERENTIAL [SQCBCDIF] Order #: [id number] FUTURE COMPREHENSIVE METABOLIC PANEL [SQCMP] Order #: [id number] FUTURE FERRITIN [SQFERR] Order #: [id number] FUTURE IRON AND TIBC [SQIRON] Order #: [id number] FUTURE VITAMIN B12 [SQB12] Order #: [id number] FUTURE FOLATE, SERUM [SQSERFOL] Order #: [id number] FUTURE Level of Service: OFFICE/OUTPATIENT [facility] 60 MINUTES [89551] Disposition: Return in about 2 weeks (around 11/10/2024). LOS History for Encounter Follow-up and Disposition History for Encounter Date Provider Department Center 10/27/2024 [id number], ADA*[facility]A [facility] Prescriptions as of 10/27/2024 - fluticasone propionate [...] Observed: 10/27/2024 8:59 AM Status: COMPLETED Source: [facility] HNO ID: [id number] Author: MAMIE MEIER MA Service: ? Author Type: Commercial Crabber Type: Progress Notes Filed: 10/27/2024 09:56 Note Text: Poatient has an irritating cough but has not coughed up blood since Wednesday, Low grade started Wednesday 102.2 chills on Wednesday (he does not take temp). He has been taking Tylenol to help minimize temps. Mamie Meier MA NM PET W/ CT SCAN SKULL BASE TO MIDTHIGH Observed: 10/18/2024 4:00 PM Status: F Source: [facility] Exam Date/Time: 10/18/2024 16:30 EDT Reason [...] a dedicated PET CT unit. Using the elevator conductor\X2019\s standard software, data were reconstructed using filtered [...] [place] Technologist: SIGRID PATHOLOGY REQUEST FOR LAB AHRPER Collected: 10/16/2024 8:00 AM Status: F Source: [facility] Order Comment: BRONCH BX TYPE CODE TESTS RESULT OUT OF RANGE REFERENCE UNITS LAB PATH TO [facility] Pathology Request for Lab Harper Result Comment: See report. Scanned copy available in EMR. PERFORMED BY: [place] [address] PATHOLOGIST PHARMACEUTICAL OFFICER ANA LILIA MCLEAN M.D. Performed By: #### PATH TO [facility] #### [facility] [address] [place] [address] PATHOLOGY REQUEST FOR LAB HARPER Collected: 10/16/2024 7:55 AM Status: F Source: [facility] Order Comment: CYTOLOGY- BRO [facility] TYPE CODE TESTS RESULT OUT OF RANGE REFERENCE UNITS LAB PATH TO [facility] Pathology Request for Lab Harper Result Comment: See report. Scanned copy available in EMR. PERFORMED BY: [place] [address] PATHOLOGIST PHARMACEUTICAL OFFICER ANA LILIA MCLEAN M.D. 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 pt was recently at [facility] ER. Had CT scan of lungs. 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 [place] [address] XRay Report Signed Patient: Frantz Roa II MR#: [id number] : 1960 Acct:[id number] Age/Sex: 63 / M ADM Date: 08/31/24 Loc: XDUCLY Room: Type: [facility] Attending Dr: Tonja De Oliveira APRN Copies to: Tonja De Oliveira APRN Ordering Provider: Tonja De Oliveira APRN Date of Service: 08/31/24 XR/XR chest 2V*: COUGH Chest 2 views CLINICAL HISTORY: Dry cough for 2 months. COMPARISON: None FINDINGS: Heart normal size. Lungs are clear. No free air. XR/XR chest 2V* IMPRESSION: NO ACUTE CARDIOPULMONARY ABNORMALITY. Impression dictated by: Neftali Lewis Jr., D.ORocky08/31/2024 10:22 AM Dictation Location: [id number] Transcribed By: [facility] 08/31/24 1022 Dictated By: Neftali Lewis Jr, DO 08/31/24 1022 Signed By: <Electronically signed by Neftali Lewis Jr, DO in OV> 08/31/24 1022 ALLERGIES DATE TYPE / CODE NAME / CODE REACTION SEVERITY SOURCE 10/25/2024 DRUG INGREDI/41 3049359(SN OMED CT) SULFAMETHOXAZOLE OTHER: SEE [facility] 10/25/2024 DRUG INGREDI/41 7215717(SN OMED CT) CODEINE OTHER: SEE aJe [facility] 12/17/2016 DRUG/32157 1003(SNOME D CT) SULFAMETHOXAZOLE-TRIME THOPRIM OTHER: SEE [facility] /6695593 06(SNOMED CT) codeine 8675522669 Mild (Qualifier Value) [facility] /7503666 06(SNOMED CT) sulfamethoxazole Unable to urinate~Unknown [facility] DEMETRIUS/5403016 06(SNOMED CT) Pollen 221468672~[id number] 1407 [facility] /6084890 06(SNOMED CT) Bactrim unable to void [facility] ENCOUNTERS ADMIT/DISCHARGE ACCOUNT NUMBER ADMITTING ENCOUNTER CLASS LOCATION SOURCE 2024 [id number] [facility] 10/30/2024 [id number] Ambulatory [facility] 10/27/2024/10/28/19 [id number] Ambulatory [facility] [facility] 10/18/2024 [id number] [facility] 10/16/2024/10/17/19 [id number] [facility] 10/13/2024/10/14/19 [id number] [place] [facility] [place] Selinaoom: CD:[id number] [facility] 10/10/2024 [id number] [place] [facility] [place] Jacek [facility] 08/31/2024/09/01/19 [id number] De OliveiraTonja [facility] PAYERS ENCOUNTER GUARANTOR PAYER SUBSCRIBER SOURCE 2024 FRANTZ ROA IIDOB: BEE STTel: ~~(41 (HP) Primary Insurance:AnthemPo licy Number: [id number] ective Date:0637-28-83[address] [place] [address]QF: FRANTZ ROA [facility] 10/30/2024 Primary Insurance:BLUE CARD PPO OOSPolicy Number: [id number] ective Date:5465-98-47Aby n Name:Mason FRANTZ ARRIAGAB: [id number] [facility] [address] [place] [address] 10/27/2024 Primary Insurance:BLUE CARD PPO OOSPolicy Number: [id number] ective Date:3003-25-93Bho n Name:Mason ARRIAGAB: [id number] [facility] [place] [id number] [place] [address] 10/18/2024 FRANTZ ROA IIDOB: BEE STTel: ~~(41 (HP) Primary Insurance:AnthemPo licy Number: [id number] ective Date:0483-35-93[address], [place] [address]TF: FRANTZ ROA [facility] 10/13/2024 FRANTZ ROA IIDOB: BEE STTel: ~~(41 (HP) Primary Insurance:AnthemPo licy Number: [id number] ective Date:3796-55-31[address], [place] [address]QO: FRANTZ ROA [facility]
== END 2024-11-02 09:59 | disposition home or self-care (01) ==
LOC: MRI 09:58
PROVIDERS: PCP Nurse Practitioner; Visit Provider Student in an Organized Health Care Education/Training Program
DX: C34.31 Malignant neoplasm of lower lobe, right bronchus or lung (principal)
CPT/HCPCS: 70030; 70553; A9575

== ENCOUNTER 2024-11-02 21:36 | Observation (INO) | payer BC, SELFPAY ==
--- OUTSIDE RECORDS SUMMARY | 2024-10-23 10:00 | XMS_ITS ---
Author Organization [facility] in [place] Address [address] [place] [address] Care Team Providers Care Soils Analyst Name Role Phone Brandi Fiore Primary Care Provider Unavail able Yordan Carbajal Unavailable [phone] Allergies Allergen (clinical drug ingredient) Drug/Non Drug Allergy documented on EMR Reaction Allergy Type Onset Date Status sulfamethoxazole / trimethoprim Bactrim fluid retention Drug Allergy Active codeine Codeine sweating Drug Allergy Active Reason For Referral Reason 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 Diagnosis 1 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) Referral Organization [facility] Referring Provider First Name Yordan Referring Provider Last Name Braden Referring Provider Speciality Pulmonolog y Referred Provider Gaetano Nathan Referred Provider Specialty Hematology/O ncology General Notes Stanford Chan 10/23 02:43:00 PM >Images pushed to [facility] via PACS., Stanford Chan 10/23/2024 04:29:01 PM >Referral faxed to [facility]., Stanford Chan 10/24/2024 01:11:14 PM >I called and spoke with Benita at [facility] to find out if the referral was received and if the patient has been scheduled? [facility] states the patient has been contacted and is scheduled for 10/27/2024 at 0900., Stanford Chan 10/30/2024 08:53:47 AM >[facility] CONSULT RECEIVED VIA FAX. SCANNED TO DR. CARBAJAL. Referral Priority Routine Referral Appointment Date 10/27/2024 REASON FOR VISIT 2w F/U - Bronchoscopy Medications Medication SIG (Take, Route, Frequency, Duration) Notes Start Date End Date Status Benzonatate 200 MG 1 capsule as needed for cough Orally Three times a day for 30 days 10/23/2024 Active Amoxicillin-Pot Clavulanate 875-125 MG 1 tablet Orally BID for 10 days 10/23/2024 Active Tylenol 325 MG 1 tablet as needed Orally every 6 hrs Active Vitamin C 1000 MG 1 tablet Orally Once a day Active Zinc 50 MG 1 capsule Orally Onc e a day for 30 day(s) Active Multi Vitamin Mens - 1 tablet Orally Onc e a day for 30 day(s) Active Breztri Aerosphere 160-9-4.8 MCG/ACT 2 puffs Inhalation Twice a day 09/25/2024 Not-Taking predniSONE 20 MG 1 tablet Orally QD for 30 days With food 10/23/2024 Active Metoprolol Succinate ER 50 MG TAKE 1 TABLET BY MOUTH EVERY DAY FOR 90 DAYS for 90 Active Mucinex DM 30-600 MG 1 tablet as needed Orally every 12 hrs Active Mucus Relief 400 MG 1 tablet as needed Orally every 4 hrs Active Fish Oil 1000 MG 1 capsule Orally Three times a day Active Albuterol Sulfate HFA 108 (90 Base) MCG/ACT 1 puff as needed Inhalation every 4 hrs 09/13/2024 Not-Taking Cyclobenzaprine HCl 10 MG TAKE 1 TABLET BY MOUTH EVERY DAY AT BEDTIME NEEDED Orally for 90 days Active Social History Tobacco Use: Social History Observation Description Date Details (start date - stop date) Former Smoker NA - NA Tobacco Control (Standard) Question Answer Notes Tobacco use: Former smoker How long has it been since y ou last smoked? 5-10 years Additional Findings: Tobacco non-user Ex -very heavy cigarette smoker (40+/day) Section Notes: , retired. 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) Active confirmed Vital Signs Temperature 97.1 degrees Fahrenheit 10/24/19 25 Blood pressure systolic 105 mm Hg 10/24/19 25 Blood pressure diastolic 70 mm Hg 025 Heart Rate 109 /min 10/23/2024 Respiratory Rate 18 /min 10/23/2024 Height 68 in 10/23/2024 Weight 193.6 lbs 10/23/2024 BMI 29.43 kg/m2 10/23/2024 Oximetry 94 % 10/23/2024 Encounters Encounter Location Date Provider Diagnosis [facility] [place] [address] [place] [address] 10/23/2024 Yordan Carbajal Squamous cell carcinoma of bronchus of right lung C34.91 ; Pneumonitis due to inhalation of food and vomit J69.0 and History of tobacco abuse Z87.891 Assessments Encounter Date Diagnosis (ICD Code) Assessment Notes Treatment Notes Treatment Clinical Notes Section Notes 10/23/2024 Squamous cell carcinoma of bronchus of right lung (ICD-10 - C34.91) History: Patient presented with chronic cough beginning June 2024. CTA chest 10/06/2024 identified a 5.5cm RLL mass. Bronchoscopy 10/17/2024 noted polypoid endobronchial lesion in bronchus intermedius occluding the bronchus in a ball-valve mechanism. PET 10/18/2024 notes a large area of FDG uptake with concurrent mediastinal lymphadenopathy, with a small distal RLL area of uptake. There is no other evidence of metastatic disease. MRI brain is not ordered. He needs referral to oncology. Patient voiced he wanted referral to [facility]. Referral was placed to them. Regarding hemoptysis, I expect this to be recurrent until the cancer is treated to at least some extent. The tissue was easily friable during the bronchoscopy - any coughing or vigorous respiratory motion can restart or perpetuate the bleeding. For the meantime, he was advised to stop all NSAIDS (including meloxicam), ASA, and fish oil. There really is not much else I can do for the hemoptysis for now. If he has a large episode (>300-400mL), he needs to come to the ER STAT. He is symptomatic with the chronic cough. Explained this will never truly improve until the cancer is treated. Medication-ochoa, Mucinex DM seems to help. The DM (dextromethorphan) is likely helping to suppress the cough. He can continue the Mucined DM at max dose and supplement with Delsym (pure DM) as needed. Additionall, will Rx Tessalon Perles which can be used with DM. Prednisone also helped in the past at the 20mg/day dose, but he was symptomatic at 10mg/day - will Rx Prednisone 20mg. Prednisone typically does not increase the incidence of endobronchial bleeding. I discussed benefit in removing the endobronchial lesion - this would improve aeration into the RML and RLL and hopefully reduce the cough. He would need to go to interventional pulmonology for this. Will see what oncology says at the initial visit - if oncology feels he would also benefit from this, will see if an internal referral to [facility] interventional pulmonology can be made. If not, I can place one. He continues to lose weight. He was 201.8# on 10/09/2024 - today (10/23/2024), he is 193.6#. There is significant mediastinal lymphadenopathy which appears to be compressing the mid-esophagus, leading to esophgaela dysphagia, limiting further his caloric intake. Discussed healthy diet, consider Ensure or Boost. He will benefit from a microbiology manager/dietic satish with oncological treatment. Will have him return in 2 weeks to see how the hemoptysis is going, as well as cough suppression. 10/23/2024 Pneumonitis due to inhalation of food and vomit (ICD-10 - J69.0) Unclear what the distal RLL FDG positive area represents is unclear - spread of neoplasm in the lung vs. pleural metastasis vs. infection. Patient had fever up to 102.2'F and chills over the weekend, so cannot R/O post-obstructive pneumonia. Will treat as a post-obstructive pneumonia with Augmentin. He was advised to eat yogurt or take a probiotic with it. 10/23/2024 History of tobacco abuse (ICD-10 - Z87.891) 2ppd x 37 years, quit 12/201610/23/2024 Other Plan Of Treatment Medication Medication Name Sig Start Date Stop Date Notes Benzonatate 200 MG 1 capsule as needed for cough Orally Three times a day for 30 days 10/23/2024 Amoxicillin-Pot Clavulanate 875-125 MG 1 tablet Orally BID for 10 days 10/23/2024 predniSONE 20 MG 1 tablet Orally QD f or 30 days 10/23/2024 Treatment Notes Assessment Notes Squamous cell carcinoma of b ronchus of right lung History: Patient presented with chronic cough beginning June 2024. CTA chest 10/06/2024 identified a 5.5cm RLL mass. Bronchoscopy 10/17/2024 noted polypoid endobronchial lesion in bronchus intermedius occluding the bronchus in a ball-valve mechanism. PET 10/18/2024 notes a large area of FDG uptake with concurrent mediastinal lymphadenopathy, with a small distal RLL area of uptake. There is no other evidence of metastatic disease. MRI brain is not ordered. He needs referral to oncology. Patient voiced he wanted referral to [facility]. Referral was placed to them. Regarding hemoptysis, I expect this to be recurrent until the cancer is treated to at least some extent. The tissue was easily friable during the bronchoscopy - any coughing or vigorous respiratory motion can restart or perpetuate the bleeding. For the meantime, he was advised to stop all NSAIDS (including meloxicam), ASA, and fish oil. There really is not much else I can do for the hemoptysis for now. If he has a large episode (>300-400mL), he needs to come to the ER STAT. He is symptomatic with the chronic cough. Explained this will never truly improve until the cancer is treated. Medication-ochoa, Mucinex DM seems to help. The DM (dextromethorphan) is likely helping to suppress the cough. He can continue the Mucined DM at max dose and supplement with Delsym (pure DM) as needed. Additionall, will Rx Tessalon Perles which can be used with DM. Prednisone also helped in the past at the 20mg/day dose, but he was symptomatic at 10mg/day - will Rx Prednisone 20mg. Prednisone typically does not increase the incidence of endobronchial bleeding. I discussed benefit in removing the endobronchial lesion - this would improve aeration into the RML and RLL and hopefully reduce the cough. He would need to go to interventional pulmonology for this. Will see what oncology says at the initial visit - if oncology feels he would also benefit from this, will see if an internal referral to [facility] interventional pulmonology can be made. If not, I can place one. He continues to lose weight. He was 201.8# on 10/09/2024 - today (10/23/2024), he is 193.6#. There is significant mediastinal lymphadenopathy which appears to be compressing the mid-esophagus, leading to esophgaela dysphagia, limiting further his caloric intake. Discussed healthy diet, consider Ensure or Boost. He will benefit from a microbiology manager/six color press operator with oncological treatment. Will have him return in 2 weeks to see how the hemoptysis is going, as well as cough suppression. Pneumonitis due to inhalatio n of food and vomit Unclear what the distal RLL FDG positive area represents is unclear - spread of neoplasm in the lung vs. pleural metastasis vs. infection. Patient had fever up to 102.2'F and chills over the weekend, so cannot R/O post-obstructive pneumonia. Will treat as a post-obstructive pneumonia with Augmentin. He was advised to eat yogurt or take a probiotic with it. History of tobacco abuse 2ppd x 37 years, quit 12/2016 Referrals Referral Date Details 10/23/2024 10/23/2024, Newly di agnosed squamous cell carcinoma right lung obstructing the bronchus intermedius, Gaetano Nathan Next Appt Details Follow Up: 2 Weeks, Reason: Cough, hemoptysis Provider Name:Yordan Carbajal, 11/07/2024 01:00:00 PM, [address] [place], [address], Progress Notes * Frantz ROA IIDOB:[birth year] (63 yo M)Acc No.[id number]:10/23/2024 Follow Up Patient: Mike Frantz DAVILA II Provider: Akosua Carbajal DO :1960 A ge:63 Y S ex:Male Date:10/23/2024 Address:[address] [place], [place] [id number] Pcp:JOSTIN Garcia Check In:01:57 PM ESTCheck O ut:02:53 PM EST Subjective: * Chief Complaints: * 2 w F/U - Bronchoscopy * HPI: G eneral: Bronchoscopy was done on 10/17/2024. Immediately when reaching the main paulette, I noted a large endobronchial lesions in the right bronchial tree. Closer inspection noted this endobronchial lesion was occluding the bronchus intermedius in a ball-valve mechanism; the stalk appeared to be attached to the posterior wall. I was able to obtain endobronchial biopsies - it was friable and easily bled. Topical epinephrine was applied which stopped active bleeding. He was discharged home in satisfactory condition. Patient contacted the office after having several episodes of bright red hemoptysis, beginning ~Wednesday10/20/2024. He states it may have been about a 5th or 6th of a standard 16.9 fl oz water bottle (~100mL), but he was not measuring the amount. Over the weekend he had a fever up to 102.2'F and chills. Pathology returned positive for squamous cell carcinoma. PET was done on 10/18/2024 which showed intense uptake in the area of the mass, along with mediastinal lymphadenopathy by the mass. There was an area in the distal RLL with FDG uptake. The radiologist could not definitively state this area was a satellite lesion in the lung, pleural involvement, or infectious. I reviewed the results, including the imaging, w ith the patient and his . MA Intake Comments:. Patient presents for a follow-up after a Bronchoscopy performed on 10/17/2024. Patient was scheduled on 10/30/2024 but called today with complaints of Hemoptysis. Patient reports the last episode to be last HS. Patient complains of a Cough & SOB with exertion. Patient recently had a PET Scan performed on 10/18/2024 at [facility]. * ROS: G eneral/Constitutional: Fever or sweats a dmits. C hange of appetite p oor. W eight Change l oss. H EENT: Dry mouth d enies. S ore throat d enies. O ral Ulcers d enies. P ost Nasal Drip D enies. C ongestion D enies. H oarseness?Denies. C ardiovascular: Tachycardia d enies. E jason D enies. C hest pain s ubsternal, dull, non-radiating - left sided. P alpitations d enies. R espiratory: Pleurisy D enies. D yspnea w ith exertion. C ough c hronic,productive,yellow. H emoptysis a dmits. W heezing a dmits. G astrointestinal: Acid Reflux/GERD/Heartburn d enies. D ysphagia a dmits. M usculoskeletal: Arthralgias/joint pain D enies. S kin: Easy bruising d enies. R nisha d enies. ? N eurologic: Seizures d enies. T remor d enies. H ematology: Abnormal Bleeding d enies. P sychiatric: Anxiety d enies. * Active Problem List Z87.891 History of tobacco a buse Modified On:09/25/2024U Status:confirmed Z87.09 History of influenza Modified On:09/25/2024U Status:confirmed C34.91 Squamous cell carcin speedy of bronchus of right lung Modified On:10/23/2024U Status:confirmed Z86.16 History of COVID-19 Modified On:09/25/2024 Status:confirmed [id number].[id number] Chronic gout without tophus, unspecified cause, unspecified site Modified On:02/25/2023U Status:confirmed N20.0 Kidney stone on righ t side Modified On:11/18/2022U Status:confirmed M10.9 Acute gout of left f oot, unspecified cause Modified On:11/29/2018U Status:confirmed Z68.33 BMI 33.0-33.9,adult Modified On:10/27/2021U Status:confirmed G89.29 Other chronic pain Modified On:09/07/2023U Status:confirmed I10 Essential hypertensi on Modified On:09/07/2023U Status:confirmed G47.9 Sleep disorder, unsp ecified Modified On:09/07/2023U Status:confirmed * Medical History: * Surgical History: T &A Cystoscope - Dr. Martinez 2015Left carpal tunnel release - Dr. Cuevas 12/23/17Right carpal tunnel release - Dr. Cuevas 08/25/18TURP - Dr. Vásquez 05/17/19Bronchoscopy 10/17/2024 * Hospitalization/Major Diagno stic Procedure: L john mass/Hypoxia-TBH 10/06/2024 * Family History: F ather: alive, diagnosed with Unspecified heart disease. M other: alive, melanoma, arthritis, diagnosed with Colon cancer. S ister(s): COPD. * Social History: T obacco Use: T obacco Control (Standard) T obacco use: F ormer smoker H ow long has it been since you last smoked??5-10 years A dditional Findings: Tobacco non-user E x-very heavy cigarette smoker (40+/day) Electronic Cigarette use C urrent user N o LM: Additional Tobacco Questions N umber of Years Pt Smoked: 3 7 N umber of Packs per Day: 2 When did you stop smokin12/2016. M iscellaneous: O ccupation O ccupation: R etired [employer] Pets: Dog. D rugs/Alcohol: D rugs H ave you used drugs other than those for medical reasons in the past 12 months? N o D oes the Patient have a History of Drug Abuse in the Past? N o Caffeine I ntake: 1 -2 cups per day Coffee Do you drink alcohol?: Yes, Socially. Do you smoke marijuana?: Denies. M arried, retired. Quit smoking in 2016. * Medications: T akingCyclobenzaprine HCl 10 MG Tablet TAKE 1 TABLET BY MOUTH EVERY DAY AT BEDTIME NEEDED Orally Fish Oil 1000 MG Capsule 1 capsule Orally Three times a day Metoprolol Succinate ER 50 MG Tablet Extended Release 24 Hour TAKE 1 TABLET BY MOUTH EVERY DAY FOR 90 DAYS Mucinex DM(DM-guaiFENesin ER) 30-600 MG Tablet Extended Release 12 Hour 1 tablet as needed Orally every 12 hrs Mucus Relief(guaiFENesin) 400 MG Tablet 1 tablet as needed Orally every 4 hrs Multi Vitamin Mens - Tablet 1 tablet Orally Once a day Tylenol(Acetaminophen) 325 MG Tablet 1 tablet as needed Orally every 6 hrs Vitamin C 1000 MG Tablet 1 tablet Orally Once a day Zinc 50 MG Capsule 1 capsule Orally Once a day Taking Cyclobenzaprine HCl 10 MG Tablet TAKE 1 TABLET BY MOUTH EVERY DAY AT BEDTIME NEEDED Orally Taking Fish Oil 1000 MG Capsule 1 capsule Orally Three times a day Taking Metoprolol Succinate ER 50 MG Tablet Extended Release 24 Hour TAKE 1 TABLET BY MOUTH EVERY DAY FOR 90 DAYS Taking Mucinex DM(DM-guaiFENesin ER) 30- 600 MG Tablet Extended Release 12 Hour 1 tablet as needed Orally every 12 hrs Taking Mucus Relief(guaiFENesin) 400 MG Tablet 1 tablet as needed Orally every 4 hrs Taking Multi Vitamin Mens - Tablet 1 tablet Orally Once a day Taking Tylenol(Acetaminophen) 325 MG Tablet 1 tablet as needed Orally every 6 hrs Taking Vitamin C 1000 MG Tablet 1 tablet Orally Once a day Taking Zinc 50 MG Capsule 1 capsule Orally Once a day Not-Taking/PRNAlbuterol Sulfate HFA 108 (90 Base) MCG/ACT Aerosol Solution 1 puff as needed Inhalation every 4 hrs Breztri Aerosphere(Jiiqzyf-Tirtgzhauab-Pdxtmrnwol) 160-9-4.8 MCG/ACT Aerosol 2 puffs Inhalation Twice a day Not-Taking/PRN Albuterol Sulfate HFA 108 (90 Base) MCG/ACT Aerosol Solution 1 puff as needed Inhalation every 4 hrs Not-Taking/PRN Breztri Aerosphere(Mkypiow-Capxazlynsh-Ufkntrhwxd) 160-9-4.8 MCG/ACT Aerosol 2 puffs Inhalation Twice a day DiscontinuedlevoFLOXacin 750 MG Tablet 1 tablet Orally Once a day Meloxicam 7.5 MG Tablet 1 tablet Orally Daily predniSONE 10 MG Tablet 1 tablet with food or milk Orally Once a day Medication List reviewed and reconciled with the patientDiscontinued levoFLOXacin 750 MG Tablet 1 tablet Orally Once a day Discontinued Meloxicam 7.5 MG Tablet 1 tablet Orally Daily Discontinued predniSONE 10 MG Tablet 1 tablet with food or milk Orally Once a day Medication List reviewed and reconciled with the patient * Allergies: B actrim: fluid retention - Side EffectsCodeine: sweating - Allergyno[Allergies Verified] Objective: * Vitals: W t:193.6lbs, Ht: 68 in, BP:sittin/70mm Hg, Temp:Forehead:97.1F, HR:109/min, RR:18/min, BMI:29.43Index, Oxygen sat %:Room Air:94%, Ht-cm: 172.72 cm, Wt-k.82 kg. * Examination: E xam: GENERAL APPEARANCE: A ppears stated age. Skin N ormal. Mouth P ink and moist. Oropharynx M allampati Class III. Trachea M idline. Chest N ormal. Respiratory Normal M ovements, E ffort N ormal. Auscultation D iminished in posterior right lung field, remaining lung is clear to auscultation. Cardiac R egular rate & rhythm. Gastrointestinal N ormal. Vascular N o edema. Musculoskeletal N ormal posture. Neurological F ocal, intact. Psychiatric A lert and oriented x3. Anxious. Mentation/Cognition N ormal. Assessment: * Assessment: 1. S quamous cell carcinoma of bronchus of right lung - C34.91 (Primary) 2 .?Pneumonitis due to inhalation of food and vomit - J69.0 3 . H istory of tobacco abuse - Z87.891 Plan: * Treatment: 2. P neumonitis due to inhalation of food and vomit Start Amoxicillin-Pot Clavulanate Tablet, 875-125 MG, 1 tablet, Orally, BID, 10 days, 20 Tablet, Refills 0. Notes: Unclear what the distal RLL FDG positive area represents is unclear - spread of neoplasm in the lung vs. pleural metastasis vs. infection. Patient had fever up to 102.2'F and chills over the weekend, so cannot R/O post-obstructive pneumonia. Will treat as a post-obstructive pneumonia with Augmentin. He was advised to eat yogurt or take a probiotic with it. 3. H istory of tobacco abuse Notes: 2ppd x 37 years, quit 12/2016 * Procedure Codes: * Preventive Medicine: COVID Vaccination: H as patient had COVID Vaccination? COVID Vaccination Y es 03/31/2024 Immunization Status: I nfluenza 1 . Screenings/Counseling: F ALL RISK SCREENING Fall Risk Assessment: N o falls in the past year Are you afraid of falling? N o T OBACCO ACTION PLAN Patient counselled on the dangers of tobacco use and urged to quit. 0 10/23/2024 Former Education on smoking effects provided?10/23/2024 Former B AL ACTION PLAN Above Normal BMI Follow-up D ietary management education, guidance, and counseling * Disposition & Communication: A ttestation: Over 40 minutes spent [id number] with the patient & his discussing the bronchoscopy and PET results, referral to oncology, and treatment plan for hemoptysis, cough, and weight loss. * Follow Up: 2 Weeks (Reason: Cough, hemoptysis) * * Sign off status: Completed Visit Status: C HK (Check Out) true * Provider: Akosua Carbajal, DO Date: 0 10/23/2024 Generated for Marco renteria/Aicha/Ab on: 0 11/03/2024 09:12 AM EDT History and Physical Notes * HPI (History of Present Illness) Category Sub-Category Detail Notes Category Not es General Patient present s for a follow-up after a Bronchoscopy performed on 10/17/2024. Patient was scheduled on 10/30/2024 but called today with complaints of Hemoptysis. Patient reports the last episode to be last HS. Patient complains of a Cough & SOB with exertion. Patient recently had a PET Scan performed on 10/18/2024 at [facility]. 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 Anxious Mentation/Cognition Normal Oropharynx Mallampati Class III Consultation Request Notes Referral Date Referring Provider Referred Provider Not es 10/23/2024 Yordan Carbajal Vivek Newly diag nosed squamous cell carcinoma right lung obstructing the bronchus intermedius
--- OUTSIDE RECORDS SUMMARY | 2024-10-25 04:30 | XMS_ITS ---
Author Organization The [facility] in [place] Address [address] [place] [address] Care Team Providers Care Senior Solutions Engineer Name Role Phone Brandi Fiore Primary Care Provider Unavail Alina Ray [phone] REASON FOR VISIT -3 Month Follow Up- discuss depression and weight loss per Encounters Encounter Location Date Provider Diagnosis [facility] [address] [place] [address] 10/25/2024 Alina Ragland Plan Of Treatment Next Appt Details Provider Name:Yordan Feliciano, 11/07/2024 01:00:00 PM, [address] [place], [address], Progress Notes * Frantz ROA IIDOB:[birth year] (64 yo M)Acc No.[id number]:10/25/2024 UNLOCKED PROGRESS NOTE Established Patient: R Frantz DAVILA II Provider: Hugh Ragland MD :1960 A ge:63 Y S ex:Male Date:10/25/2024 Address:[address] [place] [address] Pcp:JOSTIN Garcia Subjective: * Chief Complaints: * 1 . -3 Month Follow Up- discuss depression and weight loss per . * Medical History: Objective: * Vitals: Assessment: Plan: * Treatment: * * Electronic signature of Eric Ragland MD, [id number] on 11/03/2024 at 09:11 AM EDT Sign off status: Pending Visit Status: C ANC (Cancelled) * Provider: Hugh Ragland MD Date: 0 10/25/2024 Generated for Marco renteria/Aicha/Ab on: 11/03/2024 09:11 AM EDT
--- OUTSIDE RECORDS SUMMARY | 2024-10-27 09:00 | XMS_ITS | Encounter Summary ---
Author Organization [facility] Address [address] [place] [address] Care Team Providers Care Manager Audit Name Role Phone Brandi Alvarado APRN.[facility] Primary Care Provider [phone] Source Comments In the event this information is protected by the Federal Confidentiality of Alcohol and Drug AbusePatient Records regulations: The Federal rules restrict any use of the information to criminally investigate or prosecute any alcohol or drug abuse patient.[facility] Reason for Referral * Consult, Test, Treat (Routine) - Authorized Specialty Diagnoses / Procedures Referred By Beti montiel Referred To Contact Radiation Oncology Diagnoses Malignant neoplasm of lower lobe of right lung (HCC) Procedures RAD/ONC CONSULT OFFICE/OUTPATIENT [facility] 60 MINUTES Rasheed Zhang MD [address] [place] [address] [place] [address] Phone: tel: fax: Referral ID Status Reason Start Date Expiration Date Visits Requested Visits Authorized [id number] Authorized PCP Requested Referral 11/03/2024 10/27/2025 1 1 * MRI/CT (Routine) - New Request Specialty Diagnoses / Procedures Referred By Contac t Referred To Contact MR IMAGING Diagnoses Malignant neoplasm of lower lobe of right lung (HCC) Procedures MRI BRAIN WO/W IVCON MRI BRAIN BRAIN STEM W/O W/CONTRAST MATERIAL Rasheed Zhang MD [address] [place] [address] [place] [address] Phone: tel: fax: [place] [phone] Referral ID Status Reason Start Date Expiration Date Visits Requested Visits Authorized [id number] New Request Auto-Generat ed Referral 11/10/2024 11/26/2025 1 1 Reason for Visit * Reason Comments Consult Lung Cancer Encounter Details Date Type Department Care Team (Latest Contact Info) Description 10/27/2024 9:00 AM EDT Visit (SP) Office Hematology/Oncology [address] [place] [address] [place] [address] Rasheed Zhang MD [address] [place] [address] [place] [address] Malignant neoplasm of lower lobe of right lung (HCC) (Primary Dx) Social History Tobacco Use Types Packs/Day Years Used Date Smoking Tobacco: Former Cigarettes S tarted: 2017 Passive Smoke Exposure: Past Smokeless Tobacco: Never Alcohol Use Standard Drinks/Week Comments Not Currently 0 (1 standard drink = 0.6 oz pur e alcohol) Area Deprivation Index Answer Date Kenneth rded National Score (1-100), lower number is lower ri sk 93 10/27/2024 State Score (1-10), lower number is lower risk 9 10/27/2024 Data from: https://www.neighborhoodatlas.medicine.[facility].edu/. Last address used for calculation [address] 10/27/2024 Sex and Gender Information Value Date Recorded Sex Assigned at Not on file Legal Sex Male 8:04 AM EST Gender Identity Not on file Sexual Orientation Not on file documented as of this encounter Last Filed Vital Signs Vital Sign Reading Time Taken Comments Blood Pressure 100/64 10/27/2024 8:49 AM EDT Pulse 95 10/27/2024 8:49 AM EDT Temperature 36.5 C (97.7 F) 10/27/2024 8:49 AM EDT Respiratory Rate 16 10/27/2024 8:49 AM EDT Oxygen Saturation 96% 10/27/2024 8:4 9 AM EDT Inhaled Oxygen Concentration - - Weight 86.7 kg (191 lb 2.2 oz) 10/27/2024 8:49 AM EDT Height 169.5 cm (5' 6.73 ) 10/27/2024 8 :49 AM EDT verified no shoes Body Mass Index 30.18 10/27/2024 8:49 AM EDT documented in this encounter Patient Instructions * Patient Instructions* Rasheed Zhang MD - 10/27/2024 9:26 AM EDT Refer to radiation oncology Refer to interventional pulmonology Ordered MRI brain F/u in 2 weeks documented in this encounter Progress Notes * Rasheed Zhang MD - 10/27/2024 9:00 AM EDT Images from the original note were not included. PATIENT NAME: Frantz Roa II CLINIC NO.: [id number] ATTENDING PHYSICIAN: Rasheed Zhang MD DATE OF SERVICE: October 27, [address] Yordan Feliciano [address] [place] [address] thank you for referring Frantz Roa II for an opinion regarding Lung cancer. CHIEF COMPLAINT: Lung cancer HPI: Frantz Roa II is a 63 year old year old male with PMH of HTN referred to us for lung cancer. CT chest : PET scan: C/o cough and lost 30lbs. Quit smoking in 2017. Smoked 1 pk/day for 40yrs. 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 C/o hemoptysis. C/o mild dysphagia. Current Outpatient Medications Medication Sig fluticasone propionate (FLONASE NASAL) Use in the nose once daily. amoxicillin-clavulanate potassium (AUGMENTIN) 875-125 mg per tablet Take 1 tablet by mouth every 12hours. Acetaminophen 500 mg cap Take 500 mg by mouth once daily. Takes aout 6 a day diphenhydramine HCl (ALLERGY MEDICATION ORAL) Take by mouth once daily. MEN'S MULTI-VITAMIN ORAL Take by mouth once daily. Benzonatate 200 mg capsule cyclobenzaprine (FLEXERIL) 10 mg tablet Take 10 mg by mouth at bedtime as needed. metoprolol succinate ER (TOPROL XL) 25 mg 24 hr tablet Take 25 mg by mouth. predniSONE (DELTASONE) 20 mg tablet iv contrast (will be provided with radiology test) MRI Brain Inject, intravenously, once for 1 dose.No IV access, insert saline lock prior to beginning of sedation, infusion, injection of imaging exam.Discontinue saline lock post exam. If Pt. has a central line or IVAD, may access for administration according to line specific nursing protocol.Once exam is complete flush line and de-access according to line specific nursing protocol in the MR contrast administration guidelines link albuterol HFA (PROVENTIL HFA, VENTOLIN HFA) 90 mcg/actuation inhaler INHALE 1 PUFF INTO THE LUNGS EVERY 4 HOURS NEEDED (Patient not taking: Reported on 10/27/2024) ibuprofen (MOTRIN) 200 mg tablet Take 200 mg by mouth every 6 hours as needed. (Patient not taking:Reported on 10/27/2024) meloxicam (MOBIC) 7.5 mg tablet Take 7.5 mg by mouth once daily. (Patient not taking: Reported on 10/27/2024) tamsulosin (FLOMAX) 0.4 mg Take 0.4 mg by mouth. (Patient not taking: Reported on 10/27/2024) No current facility-administered medications for this visit. 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 No night sweats. HEENT: Negative for headaches, No changes in hearing or vision, no nose bleeds or other nasal problems. RESPIRATORY: Negative for cough, wheezing and shortness of breath CARDIOVASCULAR: Negative for chest pain, leg swelling and palpitations GI: Negative for abdominal discomfort, blood in stools or black stools and change in bowel habits : Negative for dysuria, frequency and incontinence MUSCULOSKELETAL: Negative for joint pain or swelling, back pain, and muscle pain. SKIN: Negative for lesions, rash, and itching. HEMATOLOGY/LYMPHOLOGY Negative for prolonged bleeding, bruising easily, and swollen nodes. NEURO: Negative for numbness or tingling of hands/feet. No weakness. PHYSICAL EXAMINATION: BP 100/64 Pulse 95 Temp 36.5 ??C (97.7 ??F) (Temporal) Resp 16 Ht 169.5 cm (5' 6.73 ) Wt 86.7 kg (191 lb 2.2 oz) SpO2 96% BMI 30.18 kg/m?? There were no vitals taken for this visit. No data found for this vital: Wt General appearance:ECOG PERFORMANCE STATUS: 0- Fully active, able to carry on all pre-disease performance w/o restriction. Patient in NAD. Skin: Skin color, texture, turgor normal. No rashes or lesions. Eyes: Anicteric sclera. Pupils are equally round and reactive to light. Extraocular movements are intact. Breast: No palpable breast masses. No nipple change or discharge. Lymph Nodes: No cervical, supraclavicular, axillary or inguinal adenopathy. Oropharynx: Lips, mucosa, and tongue normal. Back: No pain to percussion. Negative SLR test Lungs clear to auscultation, No wheezing or rhonchi Heart: RRR without murmur, gallop, or rubs. Abdomen soft, non-tender. No masses, organomegaly Extremities: No deformities. No edema Neuro: Gait and speech normal. Reflexes normal and symmetric. Muscular strength intact. Sensation grossly intact. Rectal: Deferred : Deferred LABS: No results found for: GLUC , K , NA , CHLOR , CO2 , CREAT , BUN , ANION , CA , TPROT , ALB , TBILI , ALKPHOS , AST , ALT No results found for: WBC , RBC , HB , HCT , MCV , MCH , MCHC , RDWCV , PLT , MPV , NEUT , ABSNEUT , LYMPHP , ABSLYMPH , MONOP , ABSMONO , EOSINP , ABSEOSIN , BASOP , ABSBASO PATH: IMAGING: PET scan ASSESSMENT AND PLAN: Frantz Roa II is a 63 year old year old male referred to us for squamous cell lung cancer. PS 0 PLAN: - CT chest on 10/06/2024 showed a mass in the superior segment of the right lower lobe measuring 7 cm and prominent enlarged mediastinal and right hilar lymph nodes suggestive of local metastatic disease. - PET scan showed right infrahilar primary lung malignancy with confluent subcarinal and posterior mediastinal lymphadenopathy and postobstructive right lower lobe consolidation. - Bronchoscopy showed an endobronchial mass in the bronchus intermedius. - Final pathology showed a moderate to poorly differentiated squamous cell carcinoma - Ordered MRI brain for complete staging - T4N2M0. Stage IIIB for now. - Not a surgical candidate given the mediastinal lymph node involvement and possible esophagus involvement on the CT scan. - Refer to radiation oncology. We will do concurrent chemoradiation therapy followed by maintenancedurvalumab - Refer to interventional pulmonology as per the patient request and recommendation - Refer to nutrition - C/o cough, intermittent hempotysis, Hoarseness of voice and weight loss. - All his questions answered in detail. - F/u in [address] Yordan Feliciano [address] [place] [address] thank you for allowing me to participate in Frantz Roa II care, if there are any questions or concerns please do not hesitate to contact me at the number below. I spent a total of 60 minutes on the date of the service which included preparing to see the patient, [id number] patient care, completing clinical documentation, obtaining and/or reviewing separately obtained history, performing a medically appropriate examination, counseling and educating the pat ient/family/caregiver, ordering medications, tests, or procedures, communicating with other HCPs (not separately reported), independently interpreting results (not separately reported), communicatingresults to the patient/family/caregiver, and care coordination (not separately reported). Rasheed Zhang MD. Hematology/Medical Oncology [facility] [place] [phone] CC: * Mamie Zepeda MA - 10/27/2024 8:59 AM EDT Ravi has an irritating cough but has not coughed up blood since Wednesday, Low grade started Wednesday 102.2 chills on Wednesday (he does not take temp). He has been taking Tylenol to help minimize temps. Mamie Zepeda MA documented in this encounter Miscellaneous Notes * Addendum Note - Rasheed Zhang MD - 10/27/2024 9:57 AM EDTAddended by: RASHEED ZHANG on: 10/27/2024 09:57 AM Modules accepted: Orders documented in this encounter Plan of Treatment Upcoming Encounters Date Type Department Care Team (Latest Contact Info) Description 11/10/2024 8:30 AM EDT Visit (SP) Office Hematology/Oncology [address] [place] [address] [place] [address] Rasheed Zhang MD [address] [place] [address] [place] [address] 2 week follow up 11/10/2024 9:00 AM EDT Office Visit Radiation Oncology [address] [place] [address] Ezra Moreno MD [address] [address] Consult dx Lung cancer 11/15/2024 11:00 AM EDT Office Visit Pulmonary Medicine [address] [place] [address] Alexandre Robertson MD [address] [place] [address] New Consultation 11/15/2024 12:10 PM EDT Procedure Cardiology [address] [address] PreOp Testing 11/20/2024 11:30 AM EDT Hospital Encounter Admitting [address] [address] Alexandre Robertson MD [address] [place] [address] 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] 11/20/2024 11:30 AM EDT - 11/20/2024 1:30 PM EDT Surgery Admitting [address] [address] Alexandre Robertson MD [address] [place] [address] BRONCHOSCOPY FLEXIBLE ADULT 11/30/2024 3:30 PM EDT [facility] [address] [place] [address] Bee Pabon, JAMIL [address] [place] [address] Follow up lung/ severe weight loss Scheduled Orders Name Type Priority Associated Diagnoses Orde r Schedule MRI BRAIN WO/W IVCON Radiology Routine Malignant neoplasm of lower lobe of right lung (HCC) Expected: 11/10/2024, Expires: 11/26/2025 COMPLETE BLOOD COUNT AND DIFFERENTIAL Lab Routine Malignant neoplasm of lower lobe of right lung (HCC) Expected: 11/10/2024 (Approximate), Expires: 02/09/2025 COMPREHENSIVE METABOLIC PANEL Lab Routine Malignant neoplasm of lower lobe of right lung (HCC) Expected: 11/10/2024 (Approximate), Expires: 02/09/2025 FERRITIN Lab Routine Malignant neoplasm of lower lobe of right lung (HCC) Expected: 11/10/2024 (Approximate), Expires: 02/09/2025 IRON AND TIBC Lab Routine Malignant neoplasm of lower lobe of right lung (HCC) Expected: 11/10/2024 (Approximate), Expires: 02/09/2025 VITAMIN B12 Lab Routine Malignant neoplasm of lower lobe of right lung (HCC) Expected: 11/10/2024 (Approximate), Expires: 02/09/2025 FOLATE, SERUM Lab Routine Malignant neoplasm of lower lobe of right lung (HCC) Expected: 11/10/2024 (Approximate), Expires: 02/09/2025 Scheduled Procedures Name Priority Associated Diagnoses Date/Ti me BRONCHOSCOPY FLEXIBLE ADULT Bronchiolar disease 11/20/2024 11:30 AM EDT documented as of this encounter Visit Diagnoses Diagnosis Malignant neoplasm of lower lobe of right lung (HCC)- Primary Bronchiolar disease Other diseases of trachea and bronchus documented in this encounter Care Teams Manager Audit Relationship Specialty Start Date End Date Brandi Alvarado, INTELLECTUAL PROPERTY MANAGER.AUTOMOTIVE MANAGER [address] [place] [address] PCP - General Nurse Practitioner 10/27/24 documented as of this encounter
--- OUTSIDE RECORDS SUMMARY | 2024-10-30 06:00 | XMS_ITS ---
Author Organization [facility] in [place] Address [address] [place] [address] Care Team Providers Care Clinical Nursing Intern Name Role Phone Brandi Fiore Primary Care Provider Unavail Yordan Jacob Unavailable [phone] REASON FOR VISIT 2w F/U - Bronchoscopy Encounters Encounter Location Date Provider Diagnosis Pulmonary Medicine [place] [address] [place] [address] 10/30/2024 Yordan Feliciano Plan Of Treatment Next Appt Details Provider Name:Yordan Feliciano, 11/07/2024 01:00:00 PM, [address] [place], [address], Progress Notes * Frantz ROA IIDOB:[birth year] (64 yo M)Acc No.[id number]:10/30/2024 UNLOCKED PROGRESS NOTE Follow Up Patient: R Frantz DAVILA II Provider: Akosua Feliciano DO :1960 A ge:63 Y S ex:Male Date:10/30/2024 Address:[address] [place] [address] Pcp:JOSTIN Garcia Subjective: * Chief Complaints: * 1 . 2w F/U - Bronchoscopy. * Medical History: Objective: * Vitals: Assessment: Plan: * Treatment: * * Electronic signature of Mignon Feliciano DO on 11/03/2024 at 09:12 AM EDT Sign off status: Pending Visit Status: R /S (Rescheduled) * Provider: Akosua Feliciano DO Date: 0 10/30/2024 Generated for Marco renteria/Aicha/Ab on: 11/03/2024 09:12 AM EDT
--- OUTSIDE RECORDS SUMMARY | 2024-10-30 14:30 | XMS_ITS | Encounter Summary ---
Author Organization [facility] Address [address] [place], [place] [address] Care Team Providers Care Bedspread Cutter Hand Name Role Phone Brandi Alvarado APRN.[facility] Primary Care Provider [phone] [phone] Source Comments In the event this information is protected by the Federal Confidentiality of Alcohol and Drug AbusePatient Records regulations: The Federal rules restrict any use of the information to criminally investigate or prosecute any alcohol or drug abuse patient.[facility] Reason for Visit * Reason Comments Nutrition Telephone Encounter Details Date Type Department Care Team (Late st Contact Info) Description 10/30/2024 2:30 PM EDT Education Nutrition Therapy [address] [place] [address] [place] [address] Nutrition Telephone Social History Tobacco Use Types Packs/Day Years [...] is lower risk 9 10/27/2024 Data from: https://www.neighborhoodatlas.[facility]/. Last address used for calculation [address] 10/27/2024 Sex and Gender Information Value Date Recorded Sex Assigned at Not on file Legal Sex Male 8:04 AM EST Gender Identity Not on file Sexual Orientation Not on file documented as of this encounter Progress Notes * Bee Pabon, RD - 10/30/2024 2:39 PM EDT [facility] Nutrition Therapy: Virtual Consult - Initial Assessment I have communicated my name and active licensure. The patient???s identity and physical location were verified at the time of this visit. Either the patient or their legal procurement representative has been informed of the risks and benefits of -- and alternatives to -- treatment through a remote evaluation and consents to proceed with the evaluation remotely. Nutrition Diagnosis: Behavioral-Environmental: Food and nutrition related knowledge deficit, related to, lack of prior exposure to information , as evidenced by new medical diagnosis. RECOMMENDED MALNUTRITION DIAGNOSIS: UNABLE TO IDENTIFY MALNUTRITION AT THIS TIME NUTRITION CARE PLAN Nutrition Intervention 10/30/2024: -Consider meal prepping prior to treatment. - aim for 5-6 small/frequent meals - incorporate lean sources of protein/plant based proteins at meals - Stay well hydrated - sip on fluids throughout the day - start supplementation: Ensure Plus or Complete; Boost Plus 2-3 times per day Nutrition Monitoring & Evaluation: - PO Intake - Supplement Intake - Weight - Labs - Malnutrition Status Need for Follow up: as needed Patient presents with Lung Cancer Patient's symptoms are: GI: Oral: Behavioral: Weight Concerns: weight loss - 30 lbs since Muscle loss in legs and arms Diet History: Breakfast - thomas nigel egg, sausage Snack - Lunch - protein shake - 30 g protein (premier protein) Snack - nuts, pretzels, yogurt, fruit Dinner - pizza//hot dogs and salad Snack - Beverages - water- 3 bottles per day, protein shake, milk (2-3 cups) Alcohol- no Vitamins/Supplements - MVI, zinc - 50mg, Vitamin C- 500mg Concerned about healthy weight. Anthropometrics: Height: Last Ht 10/27/24 : 169.5 cm (5' 6.73 ) Current weight: Last Wt 10/27/24 : 86.7 kg (191 lb 2.2 oz) There is no height or weight on file to calculate BMI. Resting Metabolic Rate: 1625 Food Insecurity: Not on file MNT Billing Type: Telephone encounter - no billing SIGNATURE: Bee Pabon RD PATIENT NAME: Frantz Roa II DATE: October 30, 2024 TIME: 2:39 PM PAGER: documented in this encounter Plan of Treatment Upcoming Encounters Date Type Department Care Team (Latest Contact Info) Description 11/10/2024 8:30 AM EDT Visit (SP) Office Hematology/Oncology [address] [place] [address] [place] [address] Kvng Perez MD [address] [facility] [place] [address] 2 week follow up 11/10/2024 9:00 AM EDT Office Visit Radiation Oncology [address] [place] [address] Ezra Moreno MD [address] [facility] [place] [address] Consult dx Lung cancer 11/15/2024 11:00 AM EDT Office Visit Pulmonary Medicine [address] [address] Alexandre Robertson MD [address] [place] [address] New Consultation 11/15/2024 12:10 PM EDT Procedure Cardiology [address] [address] PreOp Testing 11/20/2024 11:30 AM EDT Hospital Encounter Admitting [address] [address] Alexandre Robertson MD [address] [place] [address] 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] 11/20/2024 11:30 AM EDT - 11/20/2024 1:30 PM EDT Surgery Admitting [address] [address] Alexandre Robertson MD [address] [place] [address] BRONCHOSCOPY FLEXIBLE ADULT 11/30/2024 3:30 PM EDT [facility] Nutrition Therapy [address] [place] [address] Bee Pabon, JAMIL [address] [place] [address] Follow up lung/ severe weight loss Scheduled Procedures Name Priority Associated Diagnoses Date/Ti me BRONCHOSCOPY FLEXIBLE ADULT Bronchiolar disease 11/20/2024 11:30 AM EDT documented as of this encounter Visit Diagnoses Diagnosis Malignant neoplasm of lower lobe of right lung (HCC) Bronchiolar disease Other diseases of trachea and bronchus documented in this encounter Care Teams Bedspread Cutter Hand Relationship Specialty Start Date End Date Brandi Alvarado, ASSOCIATE ARTISTIC DIRECTOR.SPORTS REPORTER [address] [place] [address] PCP - General Nurse Practitioner 10/27/24 documented as of this encounter
--- OUTSIDE RECORDS SUMMARY | 2024-10-30 14:30 | XMS_ITS | Encounter Summary ---
Author Organization [facility] Address [address] [place], [place] [address] Care Team Providers Care Money Manager Name Role Phone Brandi Alvarado APRN.[facility] Primary Care Provider [phone] Source Comments In the event this information is protected by the Federal Confidentiality of Alcohol and Drug AbusePatient Records regulations: The Federal rules restrict any use of the information to criminally investigate or prosecute any alcohol or drug abuse patient.[facility] Reason for Visit * Reason Comments Nutrition Telephone Encounter Details Date Type Department Care Team (Late st Contact Info) Description 10/30/2024 2:30 PM EDT Education Nutrition Therapy [address] [place] [address] [place] [address] Nutrition Telephone Social History Tobacco Use Types [...] is lower risk 9 10/27/2024 Data from: https://www.neighborhoodatlas.[facility]/. Last address used for calculation [address] 10/27/2024 Sex and Gender Information Value Date Recorded Sex Assigned at Not on file Legal Sex Male 8:04 AM EST Gender Identity Not on file Sexual Orientation Not on file documented as of this encounter Progress Notes * Bee Pabon, RD - 10/30/2024 2:39 PM EDT [facility] Nutrition Therapy: Virtual Consult - Initial Assessment I have communicated my name and active licensure. The patient???s identity and physical location were verified at the time of this visit. Either the patient or their legal associate financial representative has been informed of the risks [...] 8:30 AM EDT Visit (SP) Office Hematology/Oncology [address] [place] [address] [place] [address] Kvng Perez MD [address] [facility] [place] [place] [address] 2 week follow up 11/10/2024 9:00 AM EDT Office Visit Radiation Oncology [address] [facility] [address] Ezra Moreno MD [address] [facility] [address] Consult dx Lung cancer 11/15/2024 11:00 AM EDT Office Visit Pulmonary Medicine [address] [address] Alexandre Robertson MD [address] [place] [address] New Consultation 11/15/2024 12:10 PM EDT Procedure Cardiology [address] [address] PreOp Testing 11/20/2024 11:30 AM EDT Hospital Encounter Admitting [address] [address] Alexandre Robertson MD [address] [place] [address] 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] 11/20/2024 11:30 AM EDT - 11/20/2024 1:30 PM EDT Surgery Admitting [address] [address] Alexandre Robertson MD [address] [place] [address] BRONCHOSCOPY FLEXIBLE ADULT 11/30/2024 3:30 PM EDT [facility] Nutrition Therapy [address] [place] [address] Bee Pabon, JAMIL [address] [place] [address] Follow up lung/ severe weight loss Scheduled Procedures Name Priority Associated Diagnoses Date/Ti me BRONCHOSCOPY FLEXIBLE ADULT Bronchiolar disease 11/20/2024 11:30 AM EDT documented as of this encounter Visit Diagnoses Diagnosis Malignant neoplasm of lower lobe of right lung (HCC) Bronchiolar disease Other diseases of trachea and bronchus documented in this encounter Care Teams Money Manager Relationship Specialty Start Date End Date Brandi Alvarado, OPERATIONS WELDER.FORCE DISPATCHER [address] [place] [address] PCP - General Nurse Practitioner 10/27/24 documented as of this encounter
[2024-11-02] VITALS (14 sets, daily range): BP systolic 103–138; BP diastolic 52–65; PULSE 59–128; TEMP 36.7–39.1; O2SAT 92–96; BMI 30.8
--- OUTSIDE RECORDS SUMMARY | 2024-11-02 11:40 | XMS_ITS ---
Author Name Auto Generated Organization OHIP Care Team Providers Care Ground Services Instructor Name Role Phone Chip Carbajal P Attending Unavailable Samsa, Chip P Admitting Unavailable De Oliveira, Tonja L Attending Unavailable De Oliveira, Tonja L Admitting Unavailable Ragland, Alina A Primary Care Unavailable SAMSA, CHIP P Referring Unavailable SAMSA, CHIP P Attending Unavailable Dennis, Brandi L Attending Unavailable Dennis, Brandi L Attending Unavailable DENNIS, BRANDI L Primary Care Unavailable BEE PABON Attending Unavailable VENNEPUREDDY, RASHEED Attending Unavailable SAMSA, CHIP P Referring Unavailable DENNIS, BRANDI L Primary Care Unavailable PROBLEMS DATE TYPE CONDITION / CODE ATTENDING STATUS [facility] 10/30/2024 Active Malignant neopla sm of lower lobe of right lung (HCC) / C34.31(ICD-10) BEE PABON Active [facility] PROCEDURES No Procedure Records Found RESULTS CNPN Observed: 11/01/2024 12:00 AM Status: COMPLETED Source: [facility] Telephone (HEMASA) FRANTZ ROA ([id number]) 1960 M Date Time Provider Department 11/01/24 BRITTANY MARIE During your visit today, we recorded the following information about you: Brittany Marie RN 11/01/2024 3:30 PM Addendum Pt reports pt is scheduled at [facility] for a second bronchoscopy 11/20/24 to clear an obtruction that allow him to breath out, but not inhale adequately. Pt is scheduled for Brain MRI tomorrow AV/RYAN: she is asking if they should keeps appts, as previously scheduled 11/10, or reschedule following the second bronch to alleviate the obstruction? PRITI Dempsey Adarsh, MD 11/01/2024 3:32 PM Signed Keep the appts as scheduled. Thanks Brittany Marie RN 11/01/2024 3:37 PM Signed notified and [...] Observed: 11/01/2024 12:00 AM Status: COMPLETED Source: [facility] Telephone ([id number]) FRANTZ ROA ([id number]) 1960 Date Time Provider Department 11/01/24 ROBERT NOLASCO [id number] During your visit today, we recorded the [...] Observed: 10/31/2024 4:33 PM Status: COMPLETED Source: [facility] HNO ID: [id number] Author: DENNIS HERNÁNDEZ RN Service: ? 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 SqCell Carcinoma. T4N2M0 IIIB for now, starting chemorads Consultation request/referral by: Referring Physician: Dr. Rasheed Perez Address: [facility] Mae Phone #: [phone] Fax #: [phone] Reviewed by: MD Maryuri Aguilar MD October 31, 2024 4:33 PM Addendum: CBC with diff: No results found for this basename: WBC,RBC,HB,HCT,MCV,MCH,MCHC,RDWCV,PLT,MPV,NEUTP,LYMPHP,MONOP,EODINP,BASOP,ABSNEU T,ABSLYM,ABSMONO,ABSEOSIN,ABSBASO No results found for: K No results found for: NA No results found for: BUN No results found for: CREAT PROGRESS Observed: 10/30/2024 2:39 PM Status: COMPLETED Source: [facility] HNO ID: [id number] Author: BEE PABON RD Service: ? Author Type: Registered Dietitian Type: Progress Notes Filed: 2024 14:55 Note Text: [facility] Nutrition Therapy: Virtual Consult - Initial Assessment I have communicated my name and active licensure. The patient?s identity and physical location were verified at the time of this visit. Either the patient or their legal liability claims representative has been informed of the risks [...] October 30, 2024 TIME: 2:39 PM PAGER: TRISHNPATED Observed: 10/30/2024 2:30 PM Status: COMPLETED Source: [facility] Education (NUTRMA) FRANTZ ROA ([id number]) 1960 M Date Time Provider Department 10/30/24 2:30 PM BEE PABON Reason for Visit: Nutrition Telephone [2013] Visit Diagnosis:Malignant neoplasm of lower lobe of right lung (HCC) [C34.31] Order(s):CONSULT TO ONCOLOGY NUTRITION [[id number]] Order #: [id number]: 1 During your visit today, we recorded [...] Observed: 10/27/2024 9:00 AM Status: COMPLETED Source: [facility] HN ID: [id number] Author: RASHEED PEREZ MD Service: ? Author Type: Physician Type: Progress Notes Filed: 10/27/2024 09:56 Note Text: PATIENT NAME: Frantz Roa II CLINIC NO.: [id number] ATTENDING PHYSICIAN: Rasheed Perez MD DATE OF SERVICE: October 27, [address] Chip Carbajal [address] [place] [address] thank you for referring Frantz Roa II for an opinion regarding Lung cancer. CHIEF COMPLAINT: Lung cancer HPI: Frantz Roa II is a 63 year old year old male with PMH of HTN referred to us for lung cancer. CT chest : PET scan: C/o cough and lost 30lbs. Quit smoking in 2017. Smoked 1 pk/day for 40yrs. 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 C/o hemoptysis. C/o [...] [address] Chip Carbajal [address] [place] [address] thank you for allowing me to participate in Frantz Roa II care, if there are any questions or concerns please do not hesitate to contact me at the number below. I spent a total of 60 minutes on the date of the service which included preparing to see the patient, [id number] patient care, completing clinical documentation, obtaining and/or reviewing separately obtained history, performing a medically appropriate examination, counseling and educating the patient/family/caregiver, ordering medications, tests, or procedures, communicating with other HCPs (not separately reported), independently interpreting results (not separately reported), communicating results to the patient/family/caregiver, and care coordination (not separately reported). Rasheed Perez MD. Hematology/Medical Oncology [facility] Mae [phone] CC: CNOVSP Observed: 10/27/2024 9:00 AM Status: COMPLETED Source: [facility] Visit (SP) Office (HEMASA) FRANTZ ROA ([id number]) 1960 M Date Time Provider Department 10/27/24 [...] PATIENT NAME: Frantz Roa II CLINIC NO.: [id number] ATTENDING PHYSICIAN: Rasheed Perez MD DATE OF SERVICE: October 27, [address] Chip Carbajal [address] [place] [address] thank you for referring Frantz Roa II for an opinion regarding Lung cancer. CHIEF COMPLAINT: Lung cancer HPI: Frantz Roa II is a 63 year old year old male with PMH of HTN referred to us for lung cancer. CT chest : PET scan: C/o cough and lost 30lbs. Quit smoking in 2017. Smoked 1 pk/day for 40yrs. 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 C/o hemoptysis. C/o [...] [address] Chip Carbajal [address] [place] [address] thank you for allowing me to participate in Frantz oRa II care, if there are any questions or concerns please do not hesitate to contact me at the number below. I spent a total of 60 minutes on the date of the service which included preparing to see the patient, mnuh-bl-ekpu patient care, completing clinical documentation, obtaining and/or reviewing separately obtained history, performing a medically appropriate examination, counseling and educating the patient/family/caregiver, ordering medications, tests, or procedures, communicating with other HCPs (not separately reported), independently interpreting results (not separately reported), communicating results to the patient/family/caregiver, and care coordination (not separately reported). Rasheed Perez MD. Hematology/Medical Oncology [facility] [place] [phone] CC: Rasheed Perez MD 10/27/2024 9:26 AM Signed Refer to radiation oncology Refer to interventional pulmonology Ordered MRI brain F/u in 2 weeks Rasheed Perez MD 10/27/2024 9:57 AM Signed Addended by: RASHEED PEREZ on: 10/27/2024 09:57 AM Modules accepted: Orders Referring Provider: CHIP CARBAJAL [[id number]] Allergies As of Date: 10/27/2024 Noted Allergy [...] lung (HCC) [C34.31] Order(s):MRI BRAIN WO/W IVCON [[id number]] Order #: [id number] FUTURE iv contrast (will be provided with [...] eachRfl: 0 RAD/ONC CONSULT [9037] Order #: [id number]: 1 FUTURE CONSULT TO PULMONARY MEDICINE [0789246] Order #: [id number]: 1 FUTURE CONSULT TO ONCOLOGY NUTRITION [9013128] Order #: [id number]: 1 FUTURE COMPLETE BLOOD COUNT AND DIFFERENTIAL [SQCBCDIF] Order #: [id number] FUTURE COMPREHENSIVE METABOLIC PANEL [SQCMP] Order #: [id number] FUTURE FERRITIN [SQFERR] Order #: [id number] FUTURE IRON AND TIBC [SQIRON] Order #: [id number] FUTURE VITAMIN B12 [SQB12] Order #: [id number] FUTURE FOLATE, SERUM [SQSERFOL] Order #: [id number] FUTURE Level of Service: OFFICE/OUTPATIENT [facility] 60 MINUTES [52404] Disposition: Return in about 2 weeks (around 11/10/2024). LOS History for Encounter Follow-up and Disposition History for Encounter Date Provider Department Center 10/27/2024 [id number], ADA*SHELLY Wall Prescriptions as of 10/27/2024 - [...] Observed: 10/27/2024 8:59 AM Status: COMPLETED Source: [facility] HNO ID: [id number] Author: MAMIE MEIER MA Service: ? Author Type: Foreclosure Home Inspector Type: Progress Notes Filed: 10/27/2024 09:56 Note Text: Ravi has an irritating cough but has not coughed up blood since Wednesday, Low grade started Wednesday 102.2 chills on Wednesday (he does not take temp). He has been taking Tylenol to help minimize temps. Mamie Meier MA NM PET W/ CT SCAN SKULL BASE TO MIDTHIGH Observed: 10/18/2024 4:00 PM Status: F Source: [facility] Exam Date/Time: 10/18/2024 16:30 EDT Reason for [...] a dedicated PET CT unit. Using the production team advisor\X2019\s standard software, data were reconstructed using filtered [...] Collected: 10/16/2024 8:00 AM Status: F Source: [facility] Order Comment: BRONCH BX TYPE CODE TESTS RESULT OUT OF RANGE REFERENCE UNITS LAB [facility] Pathology Request for Lab Harper Result Comment: See report. Scanned copy available in EMR. PERFORMED BY: [place] [address] PATHOLOGIST LEAD REFINERY SUPERVISOR ANA LILIA MCLEAN M.D. Performed By: #### [facility] #### [address] PATHOLOGY REQUEST FOR LAB HARPER Collected: 10/16/2024 7:55 AM Status: F Source: [facility] Order Comment: CYTOLOGY- BRO NC WASHING TYPE CODE TESTS RESULT OUT OF RANGE REFERENCE UNITS LAB PATH TO [facility] Pathology Request for Lab Harper Result Comment: See report. Scanned copy available in EMR. PERFORMED BY: [place] [address] PATHOLOGIST LEAD REFINERY SUPERVISOR ANA LILIA MCLEAN M.D. Performed By: #### [facility] #### [place] [id number] [facility] FAMILY MEDICINE OFFICE/CLINI C NOTE Observed: 10/13/2024 10:57 AM Status: F Source: [facility] Family Medicine Office/Clini c Note HPI Staff Landon is a 63 year old female presenting with Establish Care: History: Any previous diagnosis: HTN, arthritis History of seeing any specialist: Bellows Tester ( [place]) Urology When was your last doctors visit: June or July Last provider: Alina Cardenas Any recent labs: June or July Health Maintenance UTD: Colonoscopy: 2016- or 2017 PSA: not sure Acute: Current issues/complaints: No refills Had CT done [facility] last Wednesday- found something Biopsy scheduled [...] was previously seen by Alina Ragland in [place]. pt was recently at [facility] ER. Had CT scan of lungs. 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 Kidney stones Microhematuria [...] Result Comment: Electronical ly Signed By: Brandi Sethi.lesa\Date and Time Signed: 10/13/24 12:40 EDT XR CHEST 2V* Observed: 08/31/2024 10:22 AM Status: COMPLETED Source: [facility] [place] [id number] XRay Report Signed Patient: Frantz Roa II MR#: [id number] : 1960 Acct:[id number] Age/Sex: 63 / M ADM Date: 08/31/24 Loc: XDUCLY Room: Type: [facility] Attending Dr: Tonja De Oliveira APRN Copies [...] Lewis Jr., D.O.08/31/2024 10:22 AM Dictation Location: [place] [address] Transcribed By: [facility] 08/31/24 1022 Dictated By: Neftali Lewis Jr, DO 08/31/24 1022 Signed By: <Electronically signed by Neftali Lewis Jr, in OV> 08/31/24 1022 ALLERGIES DATE TYPE / CODE NAME / CODE REACTION SEVERITY SOURCE 10/25/2024 DRUG INGREDI/41 3407701(SN OMED CT) SULFAMETHOXAZOLE OTHER: SEE C [facility] 10/25/2024 DRUG INGREDI/41 0791183(SN OMED CT) CODEINE OTHER: SEE C [facility] 12/17/2016 DRUG/90160 1003(SNOME D CT) SULFAMETHOXAZOLE-TRIME THOPRIM OTHER: SEE C [facility] /3764286 06(SNOMED CT) codeine [id number] Mild (Qualifier Value) [facility] /4185403 06(SNOMED CT) sulfamethoxazole Unable to urinate~Unknown [facility] EN/1140128 06(SNOMED CT) Pollen 510297910~031281 0428 [facility] /4109662 06(SNOMED CT) Bactrim unable to void [facility] ENCOUNTERS ADMIT/DISCHARGE ACCOUNT NUMBER ADMITTING ENCOUNTER CLASS LOCATION SOURCE 2024 [id number] [facility] 10/30/2024/10/31/19 [id number] [facility] 10/27/2024/10/28/19 [id number] [facility]VALENT[facility] 10/18/2024 [id number] [facility]ulatory [facility] FT [facility] 10/16/2024/10/17/19 [id number] Chip [facility] 10/13/2024/10/14/19 [id number] [facility] [place] [place]: CD:[id number] [facility] 10/10/2024 [id number] [facility]ulatory [facility] [place] [place] [place] [facility] 08/31/2024/09/01/19 [id number] Tonja De Oliveira [facility] PAYERS ENCOUNTER GUARANTOR PAYER SUBSCRIBER SOURCE 2024 FRANTZ OROB: BEE Navas: ~~(41 HP) Primary Insurance:AnthemPo licy Number: [id number] ective Date:1028-09-15[place] [address] [place] [address]GP: FRANTZ ROA [facility] 10/30/2024 Primary Insurance:BLUE CARD PPO OOSPolicy Number: [id number] ective Date:0832-99-83Fzo n Name:Mason NICHOLS: [id number] [place] [address] [facility] 10/27/2024 Primary Insurance:BLUE CARD PPO OOSPolicy Number: [id number] ective Date:9549-28-80Wqz n Name:Mason NICHOLS: [id number] [place] [address] [facility] 10/18/2024 FRANTZ ROA IIDOB: BEE STTel: ~~(41 (HP) Primary Insurance:AnthemPo licy Number: [id number] ective Date:0815-82-58YB [address] [place] [address]WQ: [place] [facility] 10/13/2024 FRANTZ ROA IIDOB: BEE ~~(41 (HP) Primary Insurance:AnthemPo licy Number: [id number] ective Date:5166-32-25TP [address] [place] [address] [place] [address]EQ: [facility]
--- OUTSIDE RECORDS SUMMARY | 2024-11-02 11:40 | XMS_ITS ---
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 Name Role Phone Chip Carbajal P Attending Unavailable Samsa, Chip P Admitting Unavailable De Oliveira, Tonja L Attending Unavailable De Oliveira, Tonja L Admitting Unavailable Ragland, Alina A Primary Care Unavailable SAMSA, CHIP P Referring Unavailable SAMSA, CHIP P Attending Unavailable Dennis, LEAN FACILITATOR Brandi L Attending Unavailable Dennis, LEAN FACILITATOR Brandi L Attending Unavailable DENNIS, BRANDI L Primary Care Unavailable BEE PABON Attending Unavailable VENNEPUREDDY, RASHEED Attending Unavailable SAMSA, CHIP P Referring Unavailable DENNIS, BRANDI L Primary Care Unavailable PROBLEMS DATE TYPE CONDITION / CODE ATTENDING STATUS EAN RCE 10/30/2024 Active Malignant neopla sm of lower lobe of right lung (HCC) / C34.31(ICD-10) BEE PABON Active [facility] PROCEDURES No Procedure Records Found RESULTS CNPN Observed: 11/01/2024 12:00 AM Status: COMPLETED Source: [facility] Telephone (HEMASA) FRANTZ ROA ([id number]) 1960 M Date Time Provider Department 11/01/24 BRITTANY MARIE During your visit today, we recorded the following information about you: Brittany Marie RN 11/01/2024 3:30 PM Addendum Pt reports pt is scheduled at [facility] for a second bronchoscopy 11/20/24 to [...] Observed: 11/01/2024 12:00 AM Status: COMPLETED Source: [facility] Telephone ([id number]) FRANTZ ROA ([id number]) 1960 Date Time Provider Department 11/01/24 ROBERT NOLASCO [id number] During your visit today, we recorded the [...] Observed: 10/31/2024 4:33 PM Status: COMPLETED [id number] Author: DENNIS HERNÁNDEZ RN Service: ? 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 SqCell Carcinoma. T4N2M0 IIIB for now, starting chemorads Consultation request/referral by: Referring Physician: Dr. Rasheed Perez Address: [facility] Mae Phone #: [phone] Fax #: [phone] Reviewed by: MD Maryuri Aguilar MD October 31, 2024 4:33 PM Addendum: CBC with diff: No results found for this basename: WBC,RBC,HB,HCT,MCV,MCH,MCHC,RDWCV,PLT,MPV,NEUTP,LYMPHP,MONOP,EODINP,BASOP,ABSNEU T,ABSLYM,ABSMONO,ABSEOSIN,ABSBASO No results found for: K No results found for: NA No results found for: BUN No results found for: CREAT PROGRESS Observed: 10/30/2024 2:39 PM Status: COMPLETED Source: [facility] HNO ID: [id number] Author: BEE PABON RD Service: ? Author Type: Registered Dietitian Type: Progress Notes Filed: 2024 14:55 Note Text: [facility] Nutrition Therapy: Virtual Consult - Initial Assessment I have communicated my name and active licensure. The patient?s identity and physical location were verified at the time of this visit. Either the patient or their legal mill representative has been informed of the risks [...] Observed: 10/30/2024 2:30 PM Status: COMPLETED Source: [facility] Education (NUTRMA) FRANTZ ROA ([id number]) 1960 M Date Time Provider Department 10/30/24 2:30 PM BEE PABON Reason for Visit: Nutrition Telephone [2013] Visit Diagnosis:Malignant neoplasm of lower lobe of right lung (HCC) [C34.31] Order(s):CONSULT TO ONCOLOGY NUTRITION [4539027] Order #: [id number]: 1 During your visit today, we recorded [...] Observed: 10/27/2024 9:00 AM Status: COMPLETED Source: [facility] HNO ID: [id number] Author: RASHEED PEREZ MD Service: ? Author Type: Physician Type: Progress Notes Filed: 10/27/2024 09:56 Note Text: PATIENT NAME: Frantz Roa II CLINIC NO.: [id number] ATTENDING PHYSICIAN: Rasheed Perez MD DATE OF SERVICE: October 27, [address] Chip Carbajal [address] [place] [phone] thank you for referring Frantz Roa II for an opinion regarding Lung cancer. CHIEF COMPLAINT: Lung cancer HPI: Frantz Roa II is a 63 year old year old male with PMH of HTN referred to us for lung cancer. CT chest : PET scan: C/o cough and lost 30lbs. Quit smoking in 2017. Smoked 1 pk/day for 40yrs. 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 C/o hemoptysis. [...] in [address] Chip Carbajal [address] [place] [address] thank you for allowing me to participate in Frantz Roa II care, if there are any questions or concerns please do not hesitate to contact me at the number below. I spent a total of 60 minutes on the date of the service which included preparing to see the patient, tclr-sa-czgd patient care, completing clinical documentation, obtaining and/or reviewing separately obtained history, performing a medically appropriate examination, counseling and educating the patient/family/caregiver, ordering medications, tests, or procedures, communicating with other HCPs (not separately reported), independently interpreting results (not separately reported), communicating results to the patient/family/caregiver, and care coordination (not separately reported). Rasheed Perez MD. Hematology/Medical Oncology [facility] Mae [phone] CC: CNOVSP Observed: 10/27/2024 9:00 AM Status: COMPLETED Source: [facility] Visit (SP) Office (HEMASA) FRANTZ ROA ([id number]) 1960 M Date Time Provider Department 10/27/24 [...] PATIENT NAME: Frantz Roa II CLINIC NO.: [id number] ATTENDING PHYSICIAN: Rasheed Perez MD DATE OF SERVICE: October 27, [address] Chip Carbajal [address] [place] [address] thank you for referring Frantz Roa II for an opinion regarding Lung cancer. CHIEF COMPLAINT: Lung cancer HPI: Frantz Roa II is a 63 year old year old male with PMH of HTN referred to us for lung cancer. CT chest : PET scan: C/o cough and lost 30lbs. Quit smoking in 2017. Smoked 1 pk/day for 40yrs. 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 C/o hemoptysis. [...] [address] Chip Carbajal [address] [address] thank you for allowing me to participate in Frantz Roa II care, if there are any questions or concerns please do not hesitate to contact me at the number below. I spent a total of 60 minutes on the date of the service which included preparing to see the patient, dhym-iu-xgal patient care, completing clinical documentation, obtaining and/or reviewing separately obtained history, performing a medically appropriate examination, counseling and educating the patient/family/caregiver, ordering medications, tests, or procedures, communicating with other HCPs (not separately reported), independently interpreting results (not separately reported), communicating results to the patient/family/caregiver, and care coordination (not separately reported). Rasheed Perez MD. Hematology/Medical Oncology [facility] Mae [place] [phone] CC: Rasheed Perez MD 10/27/2024 9:26 AM Signed Refer to radiation oncology Refer to interventional pulmonology Ordered MRI brain F/u in 2 weeks Rasheed Perez MD 10/27/2024 9:57 AM Signed Addended by: RASHEED PEREZ on: 10/27/2024 09:57 AM Modules accepted: Orders Referring Provider: CHIP CARBAJAL [[id number]] Allergies As of Date: 10/27/2024 Noted Allergy [...] lung (HCC) [C34.31] Order(s):MRI BRAIN WO/W IVCON [7107625] Order #: [id number] FUTURE iv contrast (will be provided with [...] eachRfl: 0 RAD/ONC CONSULT [9037] Order #: [id number]: 1 FUTURE CONSULT TO PULMONARY MEDICINE [4752648] Order #: [id number]: 1 FUTURE CONSULT TO ONCOLOGY NUTRITION [3554998] Order #: [id number]: 1 FUTURE COMPLETE BLOOD COUNT AND DIFFERENTIAL [SQCBCDIF] Order #: [id number] FUTURE COMPREHENSIVE METABOLIC PANEL [SQCMP] Order #: [id number] FUTURE FERRITIN [SQFERR] Order #: [id number] FUTURE IRON AND TIBC [SQIRON] Order #: [id number] FUTURE VITAMIN B12 [SQB12] Order #: [id number] FUTURE FOLATE, SERUM [SQSERFOL] Order #: [id number] FUTURE Level of Service: OFFICE/OUTPATIENT [facility] 60 MINUTES [06795] Disposition: Return in about 2 weeks (around 11/10/2024). LOS History for Encounter Follow-up and Disposition History for Encounter Date Provider Department Center 10/27/2024 [id number], ADA*SHELLY Wall Prescriptions as of 10/27/2024 - [...] Observed: 10/27/2024 8:59 AM Status: COMPLETED Source: [facility] HNO ID: [id number] Author: MAMIE MEIER MA Service: ? Author Type: Skills Auditor Type: Progress Notes Filed: 10/27/2024 09:56 Note Text: Ravi has an irritating cough but has not coughed up blood since Wednesday, Low grade started Wednesday 102.2 chills on Wednesday (he does not take temp). He has been taking Tylenol to help minimize temps. Mamie Meier MA NM PET W/ CT SCAN SKULL BASE TO MIDTHIGH Observed: 10/18/2024 4:00 PM Status: F Source: [facility] Exam Date/Time: 10/18/2024 16:30 EDT Reason for [...] a dedicated PET CT unit. Using the residential aide\X2019\s standard software, data were reconstructed using filtered [...] Collected: 10/16/2024 8:00 AM Status: F Source: [facility] Order Comment: BRONCH BX TYPE CODE TESTS RESULT OUT OF RANGE REFERENCE UNITS LAB PATH TO [facility] Pathology Request for Lab Harper Result Comment: See report. Scanned copy available in EMR. PERFORMED BY: [place] [address] PATHOLOGIST BLADDER CHANGER ANA LILIA MCLEAN M.D. Performed By: #### PATH TO [facility] #### [address] PATHOLOGY REQUEST FOR LAB HARPER Collected: 10/16/2024 7:55 AM Status: F Source: [facility] Order Comment: CYTOLOGY- BRO NCH WASHING TYPE CODE TESTS RESULT OUT OF RANGE REFERENCE UNITS LAB PATH TO [facility] Pathology Request for Lab Harper Result Comment: See report. Scanned copy available in EMR. PERFORMED BY: [place] [address] PATHOLOGIST BLADDER CHANGER ANA LILIA MCLEAN M.D. Performed By: #### [facility] #### [facility] [address] [id number] [facility] FAMILY MEDICINE OFFICE/CLINI C NOTE Observed: 10/13/2024 10:57 AM Status: F Source: [facility] Family Medicine Office/Clini c Note HPI Staff Landon is a 63 year old female presenting with Establish Care: History: Any previous diagnosis: HTN, arthritis History of seeing any specialist: Nutrition Director ( Braden) Urology When was your last doctors visit: June or July Last provider: Alina Cardenas Any recent labs: June or July Health Maintenance UTD: Colonoscopy: 2016- or 2017 PSA: not sure Acute: Current issues/complaints: No refills Had CT done [facility] last Wednesday- found something Biopsy scheduled for [...] was previously seen by Alina Ragland in [place]. pt was recently at [facility] ER. Had CT scan of lungs. he [...] injury History of kidney stones Hx of [facility] use of blood thinners Kidney stones Microhematuria [...] Observed: 08/31/2024 10:22 AM Status: COMPLETED Source: [facility] [address] [address] XRay Report Signed Patient: Frantz Roa II MR#: [id number] : 1960 Acct:[id number] Age/Sex: 63 / M ADM Date: 08/31/24 Loc: XDUCLY Room: Type: [facility] Attending Dr: Tonja De Oliveira APRN Copies [...] Lewis Jr., D.O.08/31/2024 10:22 AM Dictation Location: [place] [address] Transcribed By: [facility] 08/31/24 1022 Dictated By: Neftali Lewis Jr, DO 08/31/24 1022 Signed By: <Electronically signed by Neftali Lewis Jr, DO in OV> 08/31/24 1022 ALLERGIES DATE TYPE / CODE NAME / CODE REACTION SEVERITY SOURCE 10/25/2024 DRUG INGREDI/41 7561771(SN OMED CT) SULFAMETHOXAZOLE OTHER: SEE C [facility] 10/25/2024 DRUG INGREDI/41 0753955(SN OMED CT) CODEINE OTHER: SEE C [facility] 12/17/2016 DRUG/41618 1003(SNOME D CT) SULFAMETHOXAZOLE-TRIME THOPRIM OTHER: SEE C [facility] /8223848 06(SNOMED CT) codeine [id number] Mild (Qualifier Value) [facility] /4010189 06(SNOMED CT) sulfamethoxazole Unable to urinate~Unknown [facility] DEMETRIUS/0966134 06(SNOMED CT) Pollen [id number] 5274 [facility] /2339398 06(SNOMED CT) Bactrim unable to void [facility] ENCOUNTERS ADMIT/DISCHARGE ACCOUNT NUMBER ADMITTING ENCOUNTER CLASS LOCATION SOURCE 2024 [id number] [facility] [place] [facility] 10/30/2024/10/31/19 [id number] [facility] 10/27/2024/10/28/19 [id number] [facility] 10/18/2024 [id number] [facility] 10/16/2024/10/17/19 [id number] Chip Carb[facility]al [facility] 10/13/2024/10/14/19 [id number] [facility] [place] [facility] [place] [place]:[id number] [facility] 10/10/2024 [id number] [facility] [place] [facility] 08/31/2024/09/01/19 [id number] Tonja De Oliveira [facility] ENCOUNTER GUARANTOR PAYER SUBSCRIBER SOURCE 2024 FRANTZ OROB: BEE Navas: ~~(41 HP) Primary Insurance:AnthemPo licy Number: [id number] ective Date:1604-93-23[address] [address]TG: FRANTZ CONNER [facility] 10/30/2024 Primary Insurance:BLUE CARD PPO OOSPolicy Number: [id number] ective Date:2096-31-21Uda n Name:Mason NICHOLS: [id number] [place] [address] [facility] 10/27/2024 Primary Insurance:BLUE CARD PPO OOSPolicy Number: [id number] ective Date:2245-46-39Dik n Name:Mason NICHOLS: [id number] [place] [address] [facility] 10/18/2024 FRANTZ ROA IIDOB: BEE ~~(41 (HP) Primary Insurance:AnthemPo licy Number: [id number] ective Date:7917-03-47ZW [address] [place] [address] [place] [address]YS: CL[place] Suly [facility] 10/13/2024 FRANTZ ROA IIDOB: BEE ~~(41 (HP) Primary Insurance:AnthemPo licy Number: [id number] ective Date:6041-32-86[address] [address]VF: [facility]
--- OUTSIDE RECORDS SUMMARY | 2024-11-02 11:40 | XMS_ITS ---
Author Name Auto Generated Organization OHIP Care Team Providers Care Aviation Consultant Name Role Phone Chip Carbajal Admitting Unavailable Samsa, Chip P Attending Unavailable De Oliveira, Tonja L Attending Unavailable Alina Ragland Primary Care Unavailable Alvino Tonja L Admitting Unavailable QUINTONBEE Flores Attending Unavailable DENNIS, BRANDI L Primary Care Unavailable RASHEED PEREZ Attending Unavailable SAMSA, CHIP P Referring Unavailable DENNIS, BRANDI L Primary Care Unavailable SAMSA, CHIP P Referring Unavailable SAMSA, CHIP P Attending Unavailable Dennis, Brandi L Attending Unavailable Dennis, Brandi L Attending Unavailable PROBLEMS DATE TYPE CONDITION / CODE ATTENDING STATUS [facility] 10/30/2024 Active Malignant neopla sm of lower lobe of right lung (HCC) / C34.31(ICD-10) BEE PABON Active [facility] PROCEDURES No Procedure Records Found RESULTS CNPN Observed: 11/01/2024 12:00 AM Status: COMPLETED Source: [facility] Telephone (HEMASA) FRANTZ ROA ([id number]) 1960 M Date Time Provider Department 11/01/24 BRITTANY MARIE During your visit today, we recorded the following information about you: Brittany Marie RN 11/01/2024 3:30 PM Addendum Pt reports pt is scheduled at [facility] for a second bronchoscopy 11/20/24 [...] Observed: 11/01/2024 12:00 AM Status: COMPLETED Source: [facility] Telephone ([id number]) FRANTZ ROA ([id number]) 1960 Date Time Provider Department 11/01/24 ROBERT NOLASCO [id number] During your visit today, we recorded the [...] Observed: 10/31/2024 4:33 PM Status: COMPLETED Source: [facility] HNO ID: [id number] Author: DENNIS HERNÁNDEZ RN Service: ? 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 SqCell Carcinoma. T4N2M0 IIIB for now, starting chemorads Consultation request/referral by: Referring Physician: Dr. Rasheed Perez Address: [facility] Mae Phone #: [phone] Fax #: [phone] Reviewed by: MD Maryuri Aguilar MD October 31, 2024 4:33 PM Addendum: CBC with diff: No results found for this basename: WBC,RBC,HB,HCT,MCV,MCH,MCHC,RDWCV,PLT,MPV,NEUTP,LYMPHP,MONOP,EODINP,BASOP,ABSNEU T,ABSLYM,ABSMONO,ABSEOSIN,ABSBASO No results found for: K No results found for: NA No results found for: BUN No results found for: CREAT PROGRESS Observed: 10/30/2024 2:39 PM Status: COMPLETED Source: [facility] HNO ID: [id number] Author: BEE PABON RD Service: ? Author Type: Registered Dietitian Type: Progress Notes Filed: 2024 14:55 Note Text: [facility] Nutrition Therapy: Virtual Consult - Initial Assessment I have communicated my name and active licensure. The patient?s identity and physical location were verified at the time of this visit. Either the patient or their legal ocean import representative has been informed of the risks [...] Observed: 10/30/2024 2:30 PM Status: COMPLETED Source: [facility] Education (NUTRMA) FRANTZ ROA ([id number]) 1960 M Date Time Provider Department 10/30/24 2:30 PM BEE PABON Reason for Visit: Nutrition Telephone [2013] Visit Diagnosis:Malignant neoplasm of lower lobe of right lung (HCC) [C34.31] Order(s):CONSULT TO ONCOLOGY NUTRITION [5154715] Order #: [id number]: 1 During your visit today, we recorded [...] Observed: 10/27/2024 9:00 AM Status: COMPLETED Source: [facility] HN ID: [id number] Author: RASHEED PEREZ MD Service: ? Author Type: Physician Type: Progress Notes Filed: 10/27/2024 09:56 Note Text: PATIENT NAME: Frantz Roa II CLINIC NO.: [id number] ATTENDING PHYSICIAN: Rasheed Perez MD DATE OF SERVICE: October 27, [address] Chip Carbajal [address] [place] [address] thank you for referring Frantz Roa II for an opinion regarding Lung cancer. CHIEF COMPLAINT: Lung cancer HPI: Frantz Roa II is a 63 year old year old male with PMH of HTN referred to us for lung cancer. CT chest : PET scan: C/o cough and lost 30lbs. Quit smoking in 2017. Smoked 1 pk/day for 40yrs. 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 C/o hemoptysis. C/o [...] [address] Chip Carbajal [address] [address] thank you for allowing me to participate in Frantz Roa II care, if there are any questions or concerns please do not hesitate to contact me at the number below. I spent a total of 60 minutes on the date of the service which included preparing to see the patient, oiko-qp-gpbe patient care, completing clinical documentation, obtaining and/or reviewing separately obtained history, performing a medically appropriate examination, counseling and educating the patient/family/caregiver, ordering medications, tests, or procedures, communicating with other HCPs (not separately reported), independently interpreting results (not separately reported), communicating results to the patient/family/caregiver, and care coordination (not separately reported). Rasheed Perez MD. Hematology/Medical Oncology [facility] Mae [phone] CC: CNOVSP Observed: 10/27/2024 9:00 AM Status: COMPLETED Source: [facility] Visit (SP) Office (HEMASA) FRANTZ ROA ([id number]) 1960 M Date Time Provider Department 10/27/24 [...] PATIENT NAME: Frantz Roa II CLINIC NO.: [id number] ATTENDING PHYSICIAN: Rasheed Perez MD DATE OF SERVICE: October 27, [address] Chip Carbajal [address] [place] [address] thank you for referring Frantz Roa II for an opinion regarding Lung cancer. CHIEF COMPLAINT: Lung cancer HPI: Frantz Roa II is a 63 year old year old male with PMH of HTN referred to us for lung cancer. CT chest : PET scan: C/o cough and lost 30lbs. Quit smoking in 2017. Smoked 1 pk/day for 40yrs. 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 C/o hemoptysis. C/o [...] [address] Chip Carbajal [address] [address] thank you for allowing me to participate in Frantz Roa II care, if there are any questions or concerns please do not hesitate to contact me at the number below. I spent a total of 60 minutes on the date of the service which included preparing to see the patient, lzpp-kv-eqht patient care, completing clinical documentation, obtaining and/or reviewing separately obtained history, performing a medically appropriate examination, counseling and educating the patient/family/caregiver, ordering medications, tests, or procedures, communicating with other HCPs (not separately reported), independently interpreting results (not separately reported), communicating results to the patient/family/caregiver, and care coordination (not separately reported). Rasheed Perez MD. Hematology/Medical Oncology [facility] [place] [phone] CC: Rasheed Perez MD 10/27/2024 9:26 AM Signed Refer to radiation oncology Refer to interventional pulmonology Ordered MRI brain F/u in 2 weeks Rasheed Perez MD 10/27/2024 9:57 AM Signed Addended by: RASHEED PEREZ on: 10/27/2024 09:57 AM Modules accepted: Orders Referring Provider: CHIP CARBAJAL [[id number]] Allergies As of Date: 10/27/2024 Noted Allergy [...] lung (HCC) [C34.31] Order(s):MRI BRAIN WO/W IVCON [4292020] Order #: [id number] FUTURE iv contrast (will be provided with [...] eachRfl: 0 RAD/ONC CONSULT [9037] Order #: [id number]: 1 FUTURE CONSULT TO PULMONARY MEDICINE [3944445] Order #: [id number]: 1 FUTURE CONSULT TO ONCOLOGY NUTRITION [7396910] Order #: [id number]: 1 FUTURE COMPLETE BLOOD COUNT AND DIFFERENTIAL [SQCBCDIF] Order #: [id number] FUTURE COMPREHENSIVE METABOLIC PANEL [SQCMP] Order #: [id number] FUTURE FERRITIN [SQFERR] Order #: [id number] FUTURE IRON AND TIBC [SQIRON] Order #: [id number] FUTURE VITAMIN B12 [SQB12] Order #: [id number] FUTURE FOLATE, SERUM [SQSERFOL] Order #: [id number] FUTURE Level of Service: OFFICE/OUTPATIENT [facility] 60 MINUTES [74705] Disposition: Return in about 2 weeks (around 11/10/2024). LOS History for Encounter Follow-up and Disposition History for Encounter Date Provider Department Center 10/27/2024 [id number], ADA*SHELLY Wall Prescriptions as of 10/27/2024 - [...] in 2 weeks Encounter Status:Closed by RASHEED PREEZ on 10/27/24 PROGRESS Observed: 10/27/2024 8:59 AM Status: COMPLETED Source: [facility] HNO ID: [id number] Author: MAMIE MEIER MA Service: ? Author Type: Drilling Manager Type: Progress Notes Filed: 10/27/2024 09:56 Note Text: Ravi has an irritating cough but has not coughed up blood since Wednesday, Low grade started Wednesday 102.2 chills on Wednesday (he does not take temp). He has been taking Tylenol to help minimize temps. Mamie Meier MA NM PET W/ CT SCAN SKULL BASE TO MIDTHIGH Observed: 10/18/2024 4:00 PM Status: F Source: [facility] Exam Date/Time: 10/18/2024 16:30 EDT [...] a dedicated PET CT unit. Using the tyre retreader\X2019\s standard software, data were reconstructed using filtered [...] Collected: 10/16/2024 8:00 AM Status: F Source: [facility] Order Comment: BRONCH BX TYPE CODE TESTS RESULT OUT OF RANGE REFERENCE UNITS LAB PATH TO [facility] Pathology Request for Lab Harper Result Comment: See report. Scanned copy available in EMR. PERFORMED BY: [place] [address] PATHOLOGIST HAMMERER HELPER ANA LILIA MCLEAN M.D. Performed By: #### [facility] TO [facility] #### [address] PATHOLOGY REQUEST FOR LAB HARPER Collected: 10/16/2024 7:55 AM Status: F Source: [facility] Order Comment: CYTOLOGY- BRO NC WASHING TYPE CODE TESTS RESULT OUT OF RANGE REFERENCE UNITS LAB PATH TO [facility] Pathology Request for Lab Harper Result Comment: See report. Scanned copy available in EMR. PERFORMED BY: [place] [address] PATHOLOGIST HAMMERER HELPER ANA LILIA MCLEAN M.D. 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 pt was recently at [facility] ER. Had CT scan of lungs. 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 Main [address] [id number] XRay Report Signed Patient: Frantz Roa II MR#: [id number] : 1960 Acct:[id number] Age/Sex: 63 / M ADM Date: 08/31/24 Loc: XDUCLY Room: Type: [facility] Attending Dr: Tonja De Oliveira APRN Copies to: Tonja De Oliveira APRN Ordering Provider: Tonja De Oliveira APRN Date of Service: 08/31/24 XR/XR chest 2V*: COUGH Chest 2 views CLINICAL HISTORY: Dry cough for 2 months. COMPARISON: None FINDINGS: Heart normal size. Lungs are clear. No free air. XR/XR chest 2V* IMPRESSION: NO ACUTE CARDIOPULMONARY ABNORMALITY. Impression dictated by: eNftali Lewis Jr., D.O.08/31/2024 10:22 AM Dictation Location: [address] [address] Transcribed By: [facility] 08/31/24 1022 Dictated By: Neftali Lewis Jr, DO 08/31/24 1022 Signed By: <Electronically signed by Neftali Lewis Jr, in OV> 08/31/24 1022 ALLERGIES DATE TYPE / CODE NAME / CODE REACTION SEVERITY SOURCE 10/25/2024 DRUG INGREDI/41 1237975(SN OMED CT) SULFAMETHOXAZOLE OTHER: SEE C [facility] 10/25/2024 DRUG INGREDI/41 8761572(SN OMED CT) CODEINE OTHER: SEE C [facility] 12/17/2016 DRUG/59650 1003(SNOME D CT) SULFAMETHOXAZOLE-TRIME THOPRIM OTHER: SEE C [facility] /3970977 06(SNOMED CT) codeine [id number] Mild (Qualifier Value) [facility] /8358549 06(SNOMED CT) sulfamethoxazole Unable to urinate~Unknown [facility] EN/8546995 06(SNOMED CT) Pollen 688074031~654851 2788 [facility] /8488122 06(SNOMED CT) Bactrim unable to void [facility] ENCOUNTERS ADMIT/DISCHARGE ACCOUNT NUMBER ADMITTING ENCOUNTER CLASS LOCATION SOURCE 2024 [id number] [facility] 10/30/2024/10/31/19 [id number] [facility] 10/27/2024/10/28/19 [id number] [facility] 10/18/2024 [id number] [facility] 10/16/2024/10/17/19 [id number] Chip Carbajal [facility] 10/13/2024/10/14/19 [id number] [facility] [place]:[id number] [facility] 10/10/2024 [id number] [facility] [place] [facility] 08/31/2024/09/01/19 [id number] Tonja De Oliveira [facility] PAYERS ENCOUNTER GUARANTOR PAYER SUBSCRIBER SOURCE 2024 FRANTZ OROB: BEE Navas: ~~(41 HP) Primary Insurance:AnthemPo licy Number: [id number] ective Date:5453-85-26AX [address] [place] [address]XG: FRANTZ ROA [facility] 10/30/2024 Primary Insurance:BLUE CARD PPO OOSPolicy Number: [id number] ective Date:5668-31-20Drj n Name:Mason NICHOLS: [id number] [place] [address] [facility] 10/27/2024 Primary Insurance:BLUE CARD PPO OOSPolicy Number: [id number] ective Date:7192-54-17Lef n Name:Mason NICHOLS: [id number] [place] [address] [facility] 10/18/2024 FRANTZ ROA IIDOB: BEE STTel: ~~(41 (HP) Primary Insurance:AnthemPo licy Number: [id number] ective Date:3851-41-56AF [address] [place] [address]PZ: AVON Suly [facility] 10/13/2024 FRANTZ ROA IIDOB: BEE ~~(41 (HP) Primary Insurance:AnthemPo licy Number: [id number] ective Date:5567-02-62WL [address] [place] [address] [place] [address]VG: [facility]
--- OUTSIDE RECORDS SUMMARY | 2024-11-02 11:40 | XMS_ITS ---
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 Name Role Phone Chip Carbajal Attending Unavailable Samsa, Chip P Admitting Unavailable De Oliveira, Tonja L Attending Unavailable De Oliveira, Tonja L Admitting Unavailable Ragland, Alina A Primary Care Unavailable DENNIS, BRANDI L Primary Care Unavailable QUINTONJOVITABEE Attending Unavailable VENNEPUREDDY, RASHEED Attending Unavailable SAMSA, CHIP P Referring Unavailable DENNIS, BRANDI L Primary Care Unavailable SAMSA, CHIP P Referring Unavailable SAMSA, CHIP P Attending Unavailable Dennis, Brandi L Attending Unavailable Dennis, Brandi L Attending Unavailable PROBLEMS DATE TYPE CONDITION / CODE ATTENDING STATUS [facility] 10/30/2024 Active Malignant neopla sm of lower lobe of right lung (HCC) / C34.31(ICD-10) BEE PABON Active [facility] PROCEDURES No Procedure Records Found RESULTS CNPN Observed: 11/01/2024 12:00 AM Status: COMPLETED Source: [facility] Telephone (HEMASA) FRANTZ ROA ([id number]) 1960 M Date Time Provider Department 11/01/24 BRITTANY MARIE During your visit today, we recorded the following information about you: Brittany Marie RN 11/01/2024 3:30 PM Addendum Pt reports pt is scheduled at [facility] for a second bronchoscopy [...] Observed: 11/01/2024 12:00 AM Status: COMPLETED Source: [facility] Telephone ([id number]) FRANTZ ROA ([id number]) 1960 Date Time Provider Department 11/01/24 ROBERT NOLASCO [id number] During your visit today, we recorded the [...] Observed: 10/31/2024 4:33 PM Status: COMPLETED Source: [facility] HNO ID: [id number] Author: DENNIS HERNÁNDEZ RN Service: ? 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 SqCell Carcinoma. T4N2M0 IIIB for now, starting chemorads Consultation request/referral by: Referring Physician: Dr. Rasheed Perez Address: [facility] Mae Phone #: [phone] Fax #: [phone] Reviewed by: MD Maryuri Aguilar MD October 31, 2024 4:33 PM Addendum: CBC with diff: No results found for this basename: WBC,RBC,HB,HCT,MCV,MCH,MCHC,RDWCV,PLT,MPV,NEUTP,LYMPHP,MONOP,EODINP,BASOP,ABSNEU T,ABSLYM,ABSMONO,ABSEOSIN,ABSBASO No results found for: K No results found for: NA No results found for: BUN No results found for: CREAT PROGRESS Observed: 10/30/2024 2:39 PM Status: COMPLETED Source: [facility] HNO ID: [id number] Author: BEE PABON RD Service: ? Author Type: Registered Dietitian Type: Progress Notes Filed: 2024 14:55 Note Text: [facility] Nutrition Therapy: Virtual Consult - Initial Assessment I have communicated my name and active licensure. The patient?s identity and physical location were verified at the time of this visit. Either the patient or their legal circulation representative has been informed of the risks [...] Observed: 10/30/2024 2:30 PM Status: COMPLETED Source: [facility] Education (NUTRMA) FRANTZ ROA ([id number]) 1960 M Date Time Provider Department 10/30/24 2:30 PM BEE PABON Reason for Visit: Nutrition Telephone [2013] Visit Diagnosis:Malignant neoplasm of lower lobe of right lung (HCC) [C34.31] Order(s):CONSULT TO ONCOLOGY NUTRITION [[id number]] Order #: [id number]: 1 During your visit today, we recorded [...] Observed: 10/27/2024 9:00 AM Status: COMPLETED Source: [facility] HN ID: [id number] Author: RASHEED PEREZ MD Service: ? Author Type: Physician Type: Progress Notes Filed: 10/27/2024 09:56 Note Text: PATIENT NAME: Frantz Roa II CLINIC NO.: [id number] ATTENDING PHYSICIAN: Rasheed Perez MD DATE OF SERVICE: October 27, [address] Chip Carbajal [address] [place] [address] thank you for referring Frantz Roa II for an opinion regarding Lung cancer. CHIEF COMPLAINT: Lung cancer HPI: Frantz Roa II is a 63 year old year old male with PMH of HTN referred to us for lung cancer. CT chest : PET scan: C/o cough and lost 30lbs. Quit smoking in 2017. Smoked 1 pk/day for 40yrs. 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 C/o hemoptysis. [...] [address] Chip Carbajal [address] [address] thank you for allowing me to participate in Frantz Roa II care, if there are any questions or concerns please do not hesitate to contact me at the number below. I spent a total of 60 minutes on the date of the service which included preparing to see the patient, [id number]-ri-[id number] patient care, completing clinical documentation, obtaining and/or reviewing separately obtained history, performing a medically appropriate examination, counseling and educating the patient/family/caregiver, ordering medications, tests, or procedures, communicating with other HCPs (not separately reported), independently interpreting results (not separately reported), communicating results to the patient/family/caregiver, and care coordination (not separately reported). Rasheed Perez MD. Hematology/Medical Oncology [facility] Mae [phone] CC: CNOVSP Observed: 10/27/2024 9:00 AM Status: COMPLETED Source: [facility] GAVIRIA Visit (SP) Office (HEMASA) FRANTZ ROA ([id number]) 1960 M Date Time Provider Department 10/27/24 [...] PATIENT NAME: Frantz Roa II CLINIC NO.: [id number] ATTENDING PHYSICIAN: Rasheed Perez MD DATE OF SERVICE: October 27, [address] Chip Carbajal [address] [place] [address] thank you for referring Frantz Roa II for an opinion regarding Lung cancer. CHIEF COMPLAINT: Lung cancer HPI: Frantz Roa II is a 63 year old year old male with PMH of HTN referred to us for lung cancer. CT chest : PET scan: C/o cough and lost 30lbs. Quit smoking in 2017. Smoked 1 pk/day for 40yrs. 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 C/o hemoptysis. [...] [address] Chip Carbajal [address] [address] thank you for allowing me to participate in Frantz Roa II care, if there are any questions or concerns please do not hesitate to contact me at the number below. I spent a total of 60 minutes on the date of the service which included preparing to see the patient, npmi-if-suto patient care, completing clinical documentation, obtaining and/or reviewing separately obtained history, performing a medically appropriate examination, counseling and educating the patient/family/caregiver, ordering medications, tests, or procedures, communicating with other HCPs (not separately reported), independently interpreting results (not separately reported), communicating results to the patient/family/caregiver, and care coordination (not separately reported). Rasheed Perez MD. Hematology/Medical Oncology [facility] [place] [phone] CC: Rasheed Perez MD 10/27/2024 9:26 AM Signed Refer to radiation oncology Refer to interventional pulmonology Ordered MRI brain F/u in 2 weeks Rasheed Perez MD 10/27/2024 9:57 AM Signed Addended by: RASHEED PEREZ on: 10/27/2024 09:57 AM Modules accepted: Orders Referring Provider: CHIP CARBAJAL [[id number]] Allergies As of Date: 10/27/2024 Noted Allergy [...] lung (HCC) [C34.31] Order(s):MRI BRAIN WO/W IVCON [[id number]] Order #: [id number] FUTURE iv contrast (will be provided with [...] eachRfl: 0 RAD/ONC CONSULT [9037] Order #: [id number]: 1 FUTURE CONSULT TO PULMONARY MEDICINE [2642657] Order #: [id number]: 1 FUTURE CONSULT TO ONCOLOGY NUTRITION [7589474] Order #: [id number]: 1 FUTURE COMPLETE BLOOD COUNT AND DIFFERENTIAL [SQCBCDIF] Order #: [id number] FUTURE COMPREHENSIVE METABOLIC PANEL [SQCMP] Order #: [id number] FUTURE FERRITIN [SQFERR] Order #: [id number] FUTURE IRON AND TIBC [SQIRON] Order #: [id number] FUTURE VITAMIN B12 [SQB12] Order #: [id number] FUTURE FOLATE, SERUM [SQSERFOL] Order #: [id number] FUTURE Level of Service: OFFICE/OUTPATIENT [facility] 60 MINUTES [47997] Disposition: Return in about 2 weeks (around 11/10/2024). LOS History for Encounter Follow-up and Disposition History for Encounter Date Provider Department Center 10/27/2024 [id number], ADA*SHELLY Wall Prescriptions as of 10/27/2024 - [...] Observed: 10/27/2024 8:59 AM Status: COMPLETED Source: [facility] HNO ID: [id number] Author: MAMIE MEIER MA Service: ? Author Type: Cafeteria Attendant Type: Progress Notes Filed: 10/27/2024 09:56 Note Text: Ravi has an irritating cough but has not coughed up blood since Wednesday, Low grade started Wednesday 102.2 chills on Wednesday (he does not take temp). He has been taking Tylenol to help minimize temps. Mamie Meier MA NM PET W/ CT SCAN SKULL BASE TO MIDTHIGH Observed: 10/18/2024 4:00 PM Status: F Source: [facility] Exam Date/Time: 10/18/2024 16:30 EDT Reason [...] a dedicated PET CT unit. Using the cryptologic technician technical\X2019\s standard software, data were reconstructed using filtered [...] Collected: 10/16/2024 8:00 AM Status: F Source: [facility] Order Comment: BRONCH BX TYPE CODE TESTS RESULT OUT OF RANGE REFERENCE UNITS LAB PATH [facility] Pathology Request for Lab Harper Result Comment: See report. Scanned copy available in EMR. PERFORMED BY: [place] [address] PATHOLOGIST AGRONOMY ADVISOR ANA LILIA MCLEAN M.D. Performed By: #### [facility] #### [address] PATHOLOGY REQUEST FOR LAB HARPER Collected: 10/16/2024 7:55 AM Status: F Source: [facility] Order Comment: CYTOLOGY- BRO NC WASHING TYPE CODE TESTS RESULT OUT OF RANGE REFERENCE UNITS LAB PATH TO [facility] Pathology Request for Lab Harper Result Comment: See report. Scanned copy available in EMR. PERFORMED BY: [place] [address] PATHOLOGIST AGRONOMY ADVISOR ANA LILIA MCLEAN M.D. Performed By: #### [facility] #### [place] [id number] 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 pt was recently at [facility] ER. Had CT scan of lungs. 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 Kidney stones Microhematuria [...] 10:22 AM Status: COMPLETED Source: [facility] Main [address] [id number] XRay Report Signed Patient: Frantz Roa II MR#: [id number] : 1960 Acct:[id number] Age/Sex: 63 / M ADM Date: 08/31/24 Loc: XDUCLY Room: Type: [facility] Attending Dr: Tonja De Oliveira APRN Copies [...] Lewis Jr., D.O.08/31/2024 10:22 AM Dictation Location: [address] [address] Transcribed By: [facility] 08/31/24 1022 Dictated By: Neftali Lewis Jr, DO 08/31/24 1022 Signed By: <Electronically signed by Neftali Lewis Jr, in OV> 08/31/24 1022 ALLERGIES DATE TYPE / CODE NAME / CODE REACTION SEVERITY SOURCE 10/25/2024 DRUG INGREDI/41 3153853(SN OMED CT) SULFAMETHOXAZOLE OTHER: SEE C [facility] 10/25/2024 DRUG INGREDI/41 3686347(SN OMED CT) CODEINE OTHER: SEE C [facility] 12/17/2016 DRUG/16538 1003(SNOME D CT) SULFAMETHOXAZOLE-TRIME THOPRIM OTHER: SEE C [facility] /9632361 06(SNOMED CT) codeine 2105938914 Mild (Qualifier Value) [facility] /5894340 06(SNOMED CT) sulfamethoxazole Unable to urinate~Unknown [facility] EN/1768511 06(SNOMED CT) Pollen [id number]~203606 1141 [facility] /1454895 06(SNOMED CT) Bactrim unable to void [facility] ENCOUNTERS ADMIT/DISCHARGE ACCOUNT NUMBER ADMITTING ENCOUNTER CLASS LOCATION SOURCE 2024 [id number] [facility]/30[facility]/10/31/19 [id number] Ambulatory [facility] 10/27/2024/10/28/19 [id number] Ambulatory [facility] [facility] 10/18/2024 [id number] [facility] 10/16/2024/10/17/19 [id number] Chip Carbajal [facility] 10/13/2024/10/14/19 [id number] [facility] [place]:[id number] [facility] 10/10/2024 [id number] [facility] [place] [facility] 08/31/2024/09/01/19 [id number] Tonja De Oliveira [facility] PAYERS ENCOUNTER GUARANTOR PAYER SUBSCRIBER SOURCE 2024 FRANTZ OROB: BEE Navas: ~~(41 HP) Primary Insurance:AnthemPo licy Number: [id number] ective Date:2998-86-99TY [address] [place] [address] [id number]: FRANTZ ROA [facility] 10/30/2024 Primary Insurance:BLUE CARD PPO OOSPolicy Number: [id number] ective Date:4871-06-62Nhh n Name:Mason NICHOLS: [id number] [place] [address] [facility] 10/27/2024 Primary Insurance:BLUE CARD PPO OOSPolicy Number: [id number] ective Date:3868-16-02Awp n Name:Mason NICHOLS: [id number] [place] [address] [facility] 10/18/2024 FRANTZ ROA IIDOB: BEE STTel: ~~(41 (HP) Primary Insurance:AnthemPo licy Number: [id number] ective Date:2589-24-79DA [address] [place] [address] [id number]: VANDALIA Suly [facility] 10/13/2024 FRANTZ ROA IIDOB: BEE ~~(41 (HP) Primary Insurance:AnthemPo licy Number: [id number] ective Date:7972-02-83OM [address] [place] [address] [place] [address]MP: [facility]
--- OUTSIDE RECORDS SUMMARY | 2024-11-02 11:40 | XMS_ITS ---
Author Name Auto Generated Organization OHIP Care Team Providers Care Health Care Assistant Name Role Phone Braden Chip P Admitting Unavailable Samsa, Chip P Attending Unavailable De Oliveira, Tonja L Attending Unavailable Ragland, Alina A Primary Care Unavailable De Oliveira, Tonja L Admitting Unavailable SAMSA, CHIP P Referring Unavailable SAMSA, CHIP P Attending Unavailable Dennis, MANDOLIN REPAIR PERSON Brandi L Attending Unavailable Dennis, MANDOLIN REPAIR PERSON Brandi L Attending Unavailable QUINTONJOVITABEE Attending Unavailable DENNIS, BRANDI L Primary Care Unavailable RASHEED PEREZ Attending Unavailable SAMSA, CHIP P Referring Unavailable DENNIS, BRANDI L Primary Care Unavailable PROBLEMS DATE TYPE CONDITION / CODE ATTENDING STATUS EAN E 10/30/2024 Active Malignant neopla sm of lower lobe of right lung (HCC) / C34.31(ICD-10) BEE PABON Active [facility] PROCEDURES No Procedure Records Found RESULTS CNPN Observed: 11/01/2024 12:00 AM Status: COMPLETED Source: [facility] Telephone (HEMASA) FRANTZ ROA ([id number]) 1960 M Date Time Provider Department 11/01/24 BRITTANY MARIE During your visit today, we recorded the following information about you: Brittany Marie RN 11/01/2024 3:30 PM Addendum Pt reports pt is scheduled at [facility] for a second bronchoscopy 11/20/24 [...] Observed: 11/01/2024 12:00 AM Status: COMPLETED Source: [facility] Telephone ([id number]) FRANTZ ROA ([id number]) 1960 Date Time Provider Department 11/01/24 ROBERT NOLASCO [id number] During your visit today, we recorded the [...] Observed: 10/31/2024 4:33 PM Status: COMPLETED [facility] [id number] Author: DENNIS HERNÁNDEZ RN Service: ? 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 SqCell Carcinoma. T4N2M0 IIIB for now, starting chemorads Consultation request/referral by: Referring Physician: Dr. Rasheed Perez Address: [facility] Mae Phone #: [phone] Fax #: [phone] Reviewed by: MD Maryuri Aguilar MD October 31, 2024 4:33 PM Addendum: CBC with diff: No results found for this basename: WBC,RBC,HB,HCT,MCV,MCH,MCHC,RDWCV,PLT,MPV,NEUTP,LYMPHP,MONOP,EODINP,BASOP,ABSNEU T,ABSLYM,ABSMONO,ABSEOSIN,ABSBASO No results found for: K No results found for: NA No results found for: BUN No results found for: CREAT PROGRESS Observed: 10/30/2024 2:39 PM Status: COMPLETED Source: [facility] HNO ID: [id number] Author: BEE PABON RD Service: ? Author Type: Registered Dietitian Type: Progress Notes Filed: 2024 14:55 Note Text: [facility] Nutrition Therapy: Virtual Consult - Initial Assessment I have communicated my name and active licensure. The patient?s identity and physical location were verified at the time of this visit. Either the patient or their legal personnel representative has been informed of the risks [...] Observed: 10/30/2024 2:30 PM Status: COMPLETED Source: [facility] Education (NUTRMA) FRANTZ ROA ([id number]) 1960 M Date Time Provider Department 10/30/24 2:30 PM BEE PABON Reason for Visit: Nutrition Telephone [2013] Visit Diagnosis:Malignant neoplasm of lower lobe of right lung (HCC) [C34.31] Order(s):CONSULT TO ONCOLOGY NUTRITION [5616232] Order #: [id number]: 1 During your visit today, we recorded [...] Observed: 10/27/2024 9:00 AM Status: COMPLETED Source: [facility] HNO ID: [id number] Author: RASHEED PEREZ MD Service: ? Author Type: Physician Type: Progress Notes Filed: 10/27/2024 09:56 Note Text: PATIENT NAME: Frantz Roa II CLINIC NO.: [id number] ATTENDING PHYSICIAN: Rasheed Perez MD DATE OF SERVICE: October 27, [address] Chip Carbajal [address] [place] [phone] thank you for referring Frantz Roa II for an opinion regarding Lung cancer. CHIEF COMPLAINT: Lung cancer HPI: Frantz Roa II is a 63 year old year old male with PMH of HTN referred to us for lung cancer. CT chest : PET scan: C/o cough and lost 30lbs. Quit smoking in 2017. Smoked 1 pk/day for 40yrs. 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 C/o hemoptysis. [...] in [address] Chip Carbajal [address] [place] [address] thank you for allowing me to participate in Frantz Roa II care, if there are any questions or concerns please do not hesitate to contact me at the number below. I spent a total of 60 minutes on the date of the service which included preparing to see the patient, wryc-ub-nzri patient care, completing clinical documentation, obtaining and/or reviewing separately obtained history, performing a medically appropriate examination, counseling and educating the patient/family/caregiver, ordering medications, tests, or procedures, communicating with other HCPs (not separately reported), independently interpreting results (not separately reported), communicating results to the patient/family/caregiver, and care coordination (not separately reported). Rasheed Perez MD. Hematology/Medical Oncology [facility] Mae [phone] CC: CNOVSP Observed: 10/27/2024 9:00 AM Status: COMPLETED Source: [facility] Visit (SP) Office (HEMASA) FRANTZ ROA ([id number]) 1960 M Date Time Provider Department 10/27/24 [...] PATIENT NAME: Frantz Roa II CLINIC NO.: [id number] ATTENDING PHYSICIAN: Rasheed Perez MD DATE OF SERVICE: October 27, [address] Chip Carbajal [address] [place] [address] thank you for referring Frantz Roa II for an opinion regarding Lung cancer. CHIEF COMPLAINT: Lung cancer HPI: Frantz Roa II is a 63 year old year old male with PMH of HTN referred to us for lung cancer. CT chest : PET scan: C/o cough and lost 30lbs. Quit smoking in 2017. Smoked 1 pk/day for 40yrs. 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 C/o hemoptysis. [...] [address] Chip Carbajal [address] [address] thank you for allowing me to participate in Frantz Roa II care, if there are any questions or concerns please do not hesitate to contact me at the number below. I spent a total of 60 minutes on the date of the service which included preparing to see the patient, hbau-lz-ewrl patient care, completing clinical documentation, obtaining and/or reviewing separately obtained history, performing a medically appropriate examination, counseling and educating the patient/family/caregiver, ordering medications, tests, or procedures, communicating with other HCPs (not separately reported), independently interpreting results (not separately reported), communicating results to the patient/family/caregiver, and care coordination (not separately reported). Rasheed Perez MD. Hematology/Medical Oncology [facility] Mae [place] [phone] CC: Rasheed Perez MD 10/27/2024 9:26 AM Signed Refer to radiation oncology Refer to interventional pulmonology Ordered MRI brain F/u in 2 weeks Rasheed Perez MD 10/27/2024 9:57 AM Signed Addended by: RASHEED PEREZ on: 10/27/2024 09:57 AM Modules accepted: Orders Referring Provider: CHIP CARBAJAL [[id number]] Allergies As of Date: 10/27/2024 Noted Allergy [...] lung (HCC) [C34.31] Order(s):MRI BRAIN WO/W IVCON [9534675] Order #: [id number] FUTURE iv contrast (will be provided with [...] eachRfl: 0 RAD/ONC CONSULT [9037] Order #: [id number]: 1 FUTURE CONSULT TO PULMONARY MEDICINE [1422995] Order #: [id number]: 1 FUTURE CONSULT TO ONCOLOGY NUTRITION [0886425] Order #: [id number]: 1 FUTURE COMPLETE BLOOD COUNT AND DIFFERENTIAL [SQCBCDIF] Order #: [id number] FUTURE COMPREHENSIVE METABOLIC PANEL [SQCMP] Order #: [id number] FUTURE FERRITIN [SQFERR] Order #: [id number] FUTURE IRON AND TIBC [SQIRON] Order #: [id number] FUTURE VITAMIN B12 [SQB12] Order #: [id number] FUTURE FOLATE, SERUM [SQSERFOL] Order #: [id number] FUTURE Level of Service: OFFICE/OUTPATIENT [facility] 60 MINUTES [94841] Disposition: Return in about 2 weeks (around 11/10/2024). LOS History for Encounter Follow-up and Disposition History for Encounter Date Provider Department Center 10/27/2024 [id number], ADA*SHELLY Wall Prescriptions as of 10/27/2024 - [...] Observed: 10/27/2024 8:59 AM Status: COMPLETED Source: [facility] HNO ID: [id number] Author: MAMIE MEIER MA Service: ? Author Type: Pit Furnace Operator Type: Progress Notes Filed: 10/27/2024 09:56 Note Text: Ravi has an irritating cough but has not coughed up blood since Wednesday, Low grade started Wednesday 102.2 chills on Wednesday (he does not take temp). He has been taking Tylenol to help minimize temps. Mamie Meier MA NM PET W/ CT SCAN SKULL BASE TO MIDTHIGH Observed: 10/18/2024 4:00 PM Status: F Source: [facility] Exam Date/Time: 10/18/2024 16:30 EDT [...] a dedicated PET CT unit. Using the mapping technician\X2019\s standard software, data were reconstructed using filtered [...] Collected: 10/16/2024 8:00 AM Status: F Source: [facility] Order Comment: BRONCH BX TYPE CODE TESTS RESULT OUT OF RANGE REFERENCE UNITS LAB PATH TO [facility] Pathology Request for Lab Harper Result Comment: See report. Scanned copy available in EMR. PERFORMED BY: [place] [address] PATHOLOGIST SEROLOGY TECHNICIAN ANA LILIA MCLEAN M.D. Performed By: #### PATH TO [facility] #### [address] PATHOLOGY REQUEST FOR LAB HARPER Collected: 10/16/2024 7:55 AM Status: F Source: [facility] Order Comment: CYTOLOGY- BRO NCH WASHING TYPE CODE TESTS RESULT OUT OF RANGE REFERENCE UNITS LAB PATH TO [facility] Pathology Request for Lab Harper Result Comment: See report. Scanned copy available in EMR. PERFORMED BY: [place] [address] PATHOLOGIST SEROLOGY TECHNICIAN ANA LILIA MCLEAN M.D. Performed By: #### [facility] #### [facility] [address] [id number] [facility] FAMILY MEDICINE OFFICE/CLINI C NOTE Observed: 10/13/2024 10:57 AM Status: F Source: [facility] Family Medicine Office/Clini c Note HPI Staff Landon is a 63 year old female presenting with Establish Care: History: Any previous diagnosis: HTN, arthritis History of seeing any specialist: Estate Attorney ( Braden) Urology When was your last doctors visit: June or July Last provider: Alina Cardenas Any recent labs: June or July Health Maintenance UTD: Colonoscopy: 2016- or 2017 PSA: not sure Acute: Current issues/complaints: No refills Had CT done [facility] last Wednesday- found something Biopsy scheduled [...] was previously seen by Alina Ragland in [place]. pt was recently at [facility] ER. Had CT scan of lungs. [...] injury History of kidney stones Hx of fci use of blood thinners Kidney stones Microhematuria [...] Observed: 08/31/2024 10:22 AM Status: COMPLETED Source: [facility] Main [address] [address] XRay Report Signed Patient: Frantz Roa II MR#: [id number] : 1960 Acct:[id number] Age/Sex: 63 / M ADM Date: 08/31/24 Loc: XDUCLY Room: Type: [facility] Attending Dr: Tonja De Oliveira [...] Lewis Jr., D.O.08/31/2024 10:22 AM Dictation Location: [place] [address] Transcribed By: [facility] 08/31/24 1022 Dictated By: Neftali Lewis Jr, DO 08/31/24 1022 Signed By: <Electronically signed by Neftali Lewis Jr, DO in OV> 08/31/24 1022 ALLERGIES DATE TYPE / CODE NAME / CODE REACTION SEVERITY SOURCE 10/25/2024 DRUG INGREDI/41 9046421(SN OMED CT) SULFAMETHOXAZOLE OTHER: SEE C [facility] 10/25/2024 DRUG INGREDI/41 9588266(SN OMED CT) CODEINE OTHER: SEE C [facility] 12/17/2016 DRUG/61470 1003(SNOME D CT) SULFAMETHOXAZOLE-TRIME THOPRIM OTHER: SEE C [facility] /5188668 06(SNOMED CT) codeine [id number] Mild (Qualifier Value) [facility] /3349458 06(SNOMED CT) sulfamethoxazole Unable to urinate~Unknown [facility] DEMETRIUS/2620978 06(SNOMED CT) Pollen 666190117~700035 5211 [facility] /4483082 06(SNOMED CT) Bactrim unable to void [facility] ENCOUNTERS ADMIT/DISCHARGE ACCOUNT NUMBER ADMITTING ENCOUNTER CLASS LOCATION SOURCE 2024 [id number] [place] [facility] 10/30/2024 [id number] Ambulatory [facility] Hospital[facility] ing:KARMA [facility] 10/27/2024/10/28/19 [id number] [facility] 10/18/2024 [id number] [facility] [place] [facility] 10/16/2024/10/17/19 [id number] Chip Carbajal [facility] 10/13/2024/10/14/19 [id number] [place] [facility] [place]:[id number] [facility] 10/10/2024 [id number] [place] [facility] 08/31/2024/09/01/19 [id number] Tonja De Oliveira [facility] PAYERS ENCOUNTER GUARANTOR PAYER SUBSCRIBER SOURCE 2024 FRANTZ OROB: BEE Navas: ~~(41 HP) Primary Insurance:AnthemPo licy Number: [id number] ective Date:3299-90-21YZ [address] [place] [address]TG: FRANTZ ROA [facility] 10/30/2024 Primary Insurance:BLUE CARD PPO OOSPolicy Number: [id number] ective Date:5935-56-72Eir n Name:Mason NICHOLS: [id number] [place] [address] [facility] 10/27/2024 Primary Insurance:BLUE CARD PPO OOSPolicy Number: [id number] ective Date:6296-46-02Qel n Name:Mason NICHOLS: [id number] [place] [address] [facility] 10/18/2024 FRANTZ ROA IIDOB: BEE STTel: ~~(41 (HP) Primary Insurance:AnthemPo licy Number: [id number] ective Date:0520-80-93IZ [address] [place] [address] [place] [address]MD: NILAND Suly [facility] 10/13/2024 FRANTZ ROA IIDOB: BEE STTel: ~~(41 (HP) Primary Insurance:AnthemPo licy Number: [id number] ective Date:4179-14-31ZD [address], [place] [address]NM: [facility]
--- OUTSIDE RECORDS SUMMARY | 2024-11-02 11:40 | XMS_ITS ---
Author Name Auto Generated Organization OHIP Care Team Providers Care Administrative Support Clerk Name Role Phone Chip Carbajal P Attending [...] DATE TYPE CONDITION / CODE ATTENDING STATUS [facility] 10/30/2024 Active Malignant neopla sm of lower lobe of right lung (HCC) / C34.31(ICD-10) BEE PABON Active [facility] PROCEDURES No Procedure Records Found RESULTS CNPN Observed: 11/01/2024 12:00 AM Status: COMPLETED Source: [facility] Telephone (HEMASA) FRANTZ ROA ([id number]) 1960 M Date Time Provider Department 11/01/24 BRITTANY MARIE During your visit today, we recorded the following information about you: Brittany Marie RN 11/01/2024 3:30 PM Addendum Pt reports pt is scheduled at [facility] for a second bronchoscopy 11/20/24 to [...] Observed: 11/01/2024 12:00 AM Status: COMPLETED Source: [facility] Telephone ([id number]) FRANTZ ROA ([id number]) 1960 Date Time Provider Department 11/01/24 ROBERT NOLASCO [id number] During your visit today, we recorded the [...] Observed: 10/31/2024 4:33 PM Status: COMPLETED Source: [facility] HNO ID: [id number] Author: DENNIS HERNÁNDEZ RN Service: ? 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 SqCell Carcinoma. T4N2M0 IIIB for now, starting chemorads Consultation request/referral by: Referring Physician: Dr. Rasheed Perez Address: [facility] Mae Phone #: [phone] Fax #: [phone] Reviewed by: MD Maryuri Aguilar MD October 31, 2024 4:33 PM Addendum: CBC with diff: No results found for this basename: WBC,RBC,HB,HCT,MCV,MCH,MCHC,RDWCV,PLT,MPV,NEUTP,LYMPHP,MONOP,EODINP,BASOP,ABSNEU T,ABSLYM,ABSMONO,ABSEOSIN,ABSBASO No results found for: K No results found for: NA No results found for: BUN No results found for: CREAT PROGRESS Observed: 10/30/2024 2:39 PM Status: COMPLETED Source: [facility] HNO ID: [id number] Author: BEE PABON RD Service: ? Author Type: Registered Dietitian Type: Progress Notes Filed: 2024 14:55 Note Text: [facility] Nutrition Therapy: Virtual Consult - Initial Assessment I have communicated my name and active licensure. The patient?s identity and physical location were verified at the time of this visit. Either the patient or their legal equal opportunity representative has been informed of the risks [...] Observed: 10/30/2024 2:30 PM Status: COMPLETED Source: [facility] Education (NUTRMA) FRANTZ ROA ([id number]) 1960 M Date Time Provider Department 10/30/24 2:30 PM BEE PABON Reason for Visit: Nutrition Telephone [2013] Visit Diagnosis:Malignant neoplasm of lower lobe of right lung (HCC) [C34.31] Order(s):CONSULT TO ONCOLOGY NUTRITION [[id number]] Order #: [id number]: 1 During your visit today, we recorded [...] Observed: 10/27/2024 9:00 AM Status: COMPLETED Source: [facility] HN ID: [id number] Author: RASHEED PEREZ MD Service: ? Author Type: Physician Type: Progress Notes Filed: 10/27/2024 09:56 Note Text: PATIENT NAME: Frantz Roa II CLINIC NO.: [id number] ATTENDING PHYSICIAN: Rasheed Perez MD DATE OF SERVICE: October 27, [address] Chip Carbajal [address] [place] [address] thank you for referring Frantz Roa II for an opinion regarding Lung cancer. CHIEF COMPLAINT: Lung cancer HPI: Frantz Roa II is a 63 year old year old male with PMH of HTN referred to us for lung cancer. CT chest : PET scan: C/o cough and lost 30lbs. Quit smoking in 2017. Smoked 1 pk/day for 40yrs. 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 C/o hemoptysis. C/o [...] [address] Chip Carbajal [address] [address] thank you for allowing me to participate in Frantz Roa II care, if there are any questions or concerns please do not hesitate to contact me at the number below. I spent a total of 60 minutes on the date of the service which included preparing to see the patient, nvfk-gq-axfj patient care, completing clinical documentation, obtaining and/or reviewing separately obtained history, performing a medically appropriate examination, counseling and educating the patient/family/caregiver, ordering medications, tests, or procedures, communicating with other HCPs (not separately reported), independently interpreting results (not separately reported), communicating results to the patient/family/caregiver, and care coordination (not separately reported). Rasheed Perez MD. Hematology/Medical Oncology [facility] Mae [phone] CC: CNOVSP Observed: 10/27/2024 9:00 AM Status: COMPLETED Source: [facility] Visit (SP) Office (HEMASA) FRANTZ ROA ([id number]) 1960 M Date Time Provider Department 10/27/24 [...] PATIENT NAME: Frantz Roa II CLINIC NO.: [id number] ATTENDING PHYSICIAN: Rasheed Perez MD DATE OF SERVICE: October 27, [address] Chip Carbajal [address] [place] [address] thank you for referring Frantz Roa II for an opinion regarding Lung cancer. CHIEF COMPLAINT: Lung cancer HPI: Frantz Roa II is a 63 year old year old male with PMH of HTN referred to us for lung cancer. CT chest : PET scan: C/o cough and lost 30lbs. Quit smoking in 2017. Smoked 1 pk/day for 40yrs. 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 C/o hemoptysis. C/o [...] [address] Chip Carbajal [address] [address] thank you for allowing me to participate in Frantz Roa II care, if there are any questions or concerns please do not hesitate to contact me at the number below. I spent a total of 60 minutes on the date of the service which included preparing to see the patient, iljp-vt-kawh patient care, completing clinical documentation, obtaining and/or reviewing separately obtained history, performing a medically appropriate examination, counseling and educating the patient/family/caregiver, ordering medications, tests, or procedures, communicating with other HCPs (not separately reported), independently interpreting results (not separately reported), communicating results to the patient/family/caregiver, and care coordination (not separately reported). Rasheed Perez MD. Hematology/Medical Oncology [facility] [place] [phone] CC: Rasheed Perez MD 10/27/2024 9:26 AM Signed Refer to radiation oncology Refer to interventional pulmonology Ordered MRI brain F/u in 2 weeks Rasheed Perez MD 10/27/2024 9:57 AM Signed Addended by: RASHEED PEREZ on: 10/27/2024 09:57 AM Modules accepted: Orders Referring Provider: CHIP CARBAJAL [[id number]] Allergies As of Date: 10/27/2024 Noted Allergy [...] lung (HCC) [C34.31] Order(s):MRI BRAIN WO/W IVCON [[id number]] Order #: [id number] FUTURE iv contrast (will be provided with [...] eachRfl: 0 RAD/ONC CONSULT [9037] Order #: [id number]: 1 FUTURE CONSULT TO PULMONARY MEDICINE [6826629] Order #: [id number]: 1 FUTURE CONSULT TO ONCOLOGY NUTRITION [2746311] Order #: [id number]: 1 FUTURE COMPLETE BLOOD COUNT AND DIFFERENTIAL [SQCBCDIF] Order #: [id number] FUTURE COMPREHENSIVE METABOLIC PANEL [SQCMP] Order #: [id number] FUTURE FERRITIN [SQFERR] Order #: [id number] FUTURE IRON AND TIBC [SQIRON] Order #: [id number] FUTURE VITAMIN B12 [SQB12] Order #: [id number] FUTURE FOLATE, SERUM [SQSERFOL] Order #: [id number] FUTURE Level of Service: OFFICE/OUTPATIENT [facility] 60 MINUTES [12555] Disposition: Return in about 2 weeks (around 11/10/2024). LOS History for Encounter Follow-up and Disposition History for Encounter Date Provider Department Center 10/27/2024 [id number], ADA*SHELLY Wall Prescriptions as of 10/27/2024 - [...] Observed: 10/27/2024 8:59 AM Status: COMPLETED Source: [facility] HNO ID: [id number] Author: MAMIE MEIER MA Service: ? Author Type: Chief Radiation Therapist Type: Progress Notes Filed: 10/27/2024 09:56 Note Text: Ravi has an irritating cough but has not coughed up blood since Wednesday, Low grade started Wednesday 102.2 chills on Wednesday (he does not take temp). He has been taking Tylenol to help minimize temps. Mamie Meier MA NM PET W/ CT SCAN SKULL BASE TO MIDTHIGH Observed: 10/18/2024 4:00 PM Status: F Source: [facility] Exam Date/Time: 10/18/2024 16:30 EDT [...] a dedicated PET CT unit. Using the electrolytic etcher\X2019\s standard software, data were reconstructed using filtered [...] Collected: 10/16/2024 8:00 AM Status: F Source: [facility] Order Comment: BRONCH BX TYPE CODE TESTS RESULT OUT OF RANGE REFERENCE UNITS LAB PATH TO [facility] Pathology Request for Lab Harper Result Comment: See report. Scanned copy available in EMR. PERFORMED BY: [place] [address] PATHOLOGIST BELT OPERATOR ANA LILIA MCLEAN M.D. Performed By: #### [facility] #### [address] PATHOLOGY REQUEST FOR LAB HARPER Collected: 10/16/2024 7:55 AM Status: F Source: [facility] Order Comment: CYTOLOGY- BRO NC WASHING TYPE CODE TESTS RESULT OUT OF RANGE REFERENCE UNITS LAB PATH TO [facility] Pathology Request for Lab Harper Result Comment: See report. Scanned copy available in EMR. PERFORMED BY: [place] [address] PATHOLOGIST BELT OPERATOR ANA LILIA MCLEAN M.D. 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 pt was recently at [facility] ER. Had CT scan of lungs. 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 COMPARISON: None FINDINGS: Heart normal size. Lungs are clear. No free air. XR/XR chest 2V* IMPRESSION: NO ACUTE CARDIOPULMONARY ABNORMALITY. Impression dictated by: Neftali Lewis Jr., D.O.08/31/2024 10:22 AM Dictation Location: [address] [address] Transcribed By: [facility] 08/31/24 1022 Dictated By: Neftali Lewis Jr, DO 08/31/24 1022 Signed By: <Electronically signed by Neftali Lewis Jr, in OV> 08/31/24 1022 ALLERGIES DATE TYPE / CODE NAME / CODE REACTION SEVERITY SOURCE 10/25/2024 DRUG INGREDI/41 1180542(SN OMED CT) SULFAMETHOXAZOLE OTHER: SEE C [facility] 10/25/2024 DRUG INGREDI/41 1167422(SN OMED CT) CODEINE OTHER: SEE C [facility] 12/17/2016 DRUG/74648 1003(SNOME D CT) SULFAMETHOXAZOLE-TRIME THOPRIM OTHER: SEE C [facility] /1842508 06(SNOMED CT) codeine [id number] Mild (Qualifier Value) [facility] /3758496 06(SNOMED CT) sulfamethoxazole Unable to urinate~Unknown [facility] EN/5275708 06(SNOMED CT) Pollen [id number]~507871 9062 [facility] /4802635 06(SNOMED CT) Bactrim unable to void [facility] ENCOUNTERS ADMIT/DISCHARGE ACCOUNT NUMBER ADMITTING ENCOUNTER CLASS LOCATION SOURCE 2024 [id number] [facility] [id number] [facility] 10/27/2024/10/28/19 [id number] [facility] [facility] 10/18/2024 [id number] [facility] 10/16/2024/10/17/19 [id number] Chip Carbajal [facility] 10/13/2024/10/14/19 [id number] [facility] [place]:[id number] [facility] 10/10/2024 [id number] [facility] [place] [facility] 08/31/2024/09/01/19 [id number] Tonja De Oliveira [facility] PAYERS ENCOUNTER GUARANTOR PAYER SUBSCRIBER SOURCE 2024 FRANTZ OROB: BEE Navas: ~~(41 HP) Primary Insurance:AnthemPo licy Number: [id number] ective Date:7056-79-31KW [address] [place] [address] [id number]: FRANTZ ROA [facility] 10/30/2024 Primary Insurance:BLUE CARD PPO OOSPolicy Number: [id number] ective Date:4291-02-25Dhu n Name:Mason NICHOLS: [id number] [place] [address] [facility] 10/27/2024 Primary Insurance:BLUE CARD PPO OOSPolicy Number: [id number] ective Date:4061-27-90Yct n Name:Mason NICHOLS: [id number] [place] [address] [facility] 10/18/2024 FRANTZ ROA IIDOB: BEE STTel: ~~(41 (HP) Primary Insurance:AnthemPo licy Number: [id number] ective Date:2275-56-06CB [address] [place] [address] 28789QO: LINDALE Suly [facility] 10/13/2024 FRANTZ ROA IIDOB: BEE ~~(41 (HP) Primary Insurance:AnthemPo licy Number: [id number] ective Date:5068-28-41QM [address] [place] [address] [place] [address]BM: [facility]
--- OUTSIDE RECORDS SUMMARY | 2024-11-02 21:40 | XMS_ITS | Encounter Summary ---
Author Organization [facility] Address [address] [place] [address] Care Team Providers Care Ruby On Rails Web Developer Name Role Phone LawDoug caalVamsi Primary Care Provider [phone] Brandi Alvarado APRN.[facility] Primary Care Provider [phone] Source Comments In the event this information is protected by the Federal Confidentiality of Alcohol and Drug AbusePatient Records regulations: The Federal rules restrict any use of the information to criminally investigate or prosecute any alcohol or drug abuse patient.[facility] Reason for Visit * Reason Comments Results Dept. of Neurology R eport Encounter Details Date Type Department Care Team (Late st Contact Info) Description 03/25/2006 Abstract Neurology [address] [place] [address] Laith Norton MD [address] [place] [address] Results (Dept. of Neurology Report) [...] AM EDT Visit (SP) Office Hematology/Oncology [address] [place] [address] [place] [address] Kvng Perez MD [address] [place] [address] [place] [address] 2 week follow up 11/10/2024 9:00 AM EDT Office Visit Radiation Oncology [address] [place] [address] [place] [address] Ezra Moreno MD [address] [place] [address] [place] [address] Consult dx Lung cancer 11/15/2024 11:00 AM EDT Office Visit Pulmonary Medicine [address] [address] Alexandre Robertson MD [address] [place] [address] New Consultation 11/15/2024 12:10 PM EDT Procedure Cardiology [address] [address] PreOp Testing 11/20/2024 11:30 AM EDT Hospital Encounter Admitting [address] [address] Alexandre Robertson MD [address] [place] [address] 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] 11/20/2024 11:30 AM EDT - 11/20/2024 1:30 PM EDT Surgery Admitting [address] [address] Alexandre Robertson MD [address] [place] [address] BRONCHOSCOPY FLEXIBLE ADULT 11/30/2024 3:30 PM EDT [facility] Nutrition Therapy [address] [place] [address] Jesusita Pabon, JAMIL [address] [place] [address] Follow up lung/ severe weight loss Scheduled Procedures Name Priority Associated Diagnoses Date/Ti me BRONCHOSCOPY FLEXIBLE ADULT Bronchiolar disease 11/20/2024 11:30 AM EDT documented as of this encounter Visit Diagnoses Not on filedocumented in this encounter Care Teams Ruby On Rails Web Developer Relationship Specialty Start Date End Date Doug Bowles PCP - General 02/23/06 10/26/24 Brandi Alvarado, SUPERVISOR COFFEE.PRINTING ROLLER POLISHER [address] [place] [address] PCP - General Nurse Practitioner 10/27/24 documented as of this encounter
--- OUTSIDE RECORDS SUMMARY | 2024-11-02 21:40 | XMS_ITS | Encounter Summary ---
Author Organization [facility] Address [facility] [place] [address] Care Team Providers Care Bi Report Developer Name Role Phone Jenny Brandi Fowler APRN.[facility] Primary Care Provider [phone] Source Comments In the event this information is protected by the Federal Confidentiality of Alcohol and Drug AbusePatient Records regulations: The Federal rules restrict any use of the information to criminally investigate or prosecute any alcohol or drug abuse patient.[facility] Reason for Visit * Reason Comments Bronchoscopy Referral Encounter Details Date Type Department Care Team (Late st Contact Info) Description 10/27/2024 Telephone Pulmonary Medicine [address] [place] [address] Janell An Bronchoscopy Referral Social History Tobacco [...] lower risk 9 10/27/2024 Data from: https://www.neighborhoodatlas.medicine.[facility].edu/. Last address used for calculation [address] 10/27/2024 Sex and Gender Information Value Date Recorded Sex Assigned at Not on file Legal Sex Male 8:04 AM EST Gender Identity Not on file Sexual Orientation Not on file documented as of this encounter Miscellaneous Notes * Telephone Encounter - Janell An - 10/27/2024 10:19 AM EDT Referring Physician: Dr. Kvng Perez Address: [facility] Mae Phone #: [phone] Fax #: [phone] Reason for referral: Malignant neoplasm of lower lobe of right lung Is there CareEverywhere Records: Yes Is there Imaging available: Yes - Recent CT: Yes - Date of CT: 10/18/2024 documented in this encounter Plan of Treatment Upcoming Encounters Date Type Department Care Team (Latest Contact Info) Description 11/10/2024 8:30 AM EDT Visit (SP) Office Hematology/Oncology [address] [place] [address] [place] [address] Kvng Perez MD [address] [place] [address] [place] [address] 2 week follow up 11/10/2024 9:00 AM EDT Office Visit Radiation Oncology [address] [place] [address] [place] [address] Ezra Moreno MD [address] [place] [address] [place] [address] Consult dx Lung cancer 11/15/2024 11:00 AM EDT Office Visit Pulmonary Medicine [address] [place] [address] Alexandre Robertson MD [address] [place] [address] New Consultation 11/15/2024 12:10 PM EDT Procedure Cardiology [address] [address] PreOp Testing 11/20/2024 11:30 AM EDT Hospital Encounter Admitting [address] [address] Alexandre Robertson MD [address] [place] [address] 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] 11/20/2024 11:30 AM EDT - 11/20/2024 1:30 PM EDT Surgery Admitting [address] [address] Alexandre Robertson MD [address] [place] [address] BRONCHOSCOPY FLEXIBLE ADULT 11/30/2024 3:30 PM EDT [facility] Nutrition Therapy [address] [place] [address] Bee Pabon, JAMIL [address] [place] [address] Follow up lung/ severe weight loss Scheduled Procedures Name Priority Associated Diagnoses Date/Ti me BRONCHOSCOPY FLEXIBLE ADULT Bronchiolar disease 11/20/2024 11:30 AM EDT documented as of this encounter Visit Diagnoses Not on filedocumented in this encounter Care Teams Bi Report Developer Relationship Specialty Start Date End Date Brandi Alvarado, INTERDISCIPLINARY PROFESSOR.LOCKMAKER [address] [place] [address] PCP - General Nurse Practitioner 10/27/24 documented as of this encounter
--- OUTSIDE RECORDS SUMMARY | 2024-11-02 21:40 | XMS_ITS | Encounter Summary ---
Author Organization [facility] Address [address] [place], [place] [address] Care Team Providers Care System Technologist Name Role Phone Doug Bowles Primary Care Provider Source Comments In the event this information is protected by the Federal Confidentiality of Alcohol and Drug AbusePatient Records regulations: The Federal rules restrict any use of the information to criminally investigate or prosecute any alcohol or drug abuse patient.[facility] Encounter Details Date Type Department Care Team (Late st Contact Info) Description 10/25/2024 Abstract Hematology/Oncology [address] [place] [address] Kvng Perez MD [address] [place] [address] Social History Tobacco Use Types Packs/Day Years [...] 8:30 AM EDT Visit (SP) Office Hematology/Oncology [address] [place] [address] [place] [address] Kvng Perez MD [address] [place] [address] [place] [address] 2 week follow up 11/10/2024 9:00 AM EDT Office Visit Radiation Oncology [address] [facility] [place] [address] Ezra Moreno MD [address] [place] [address] [place] [address] Consult dx Lung cancer 11/15/2024 11:00 AM EDT Office Visit Pulmonary Medicine [address] [address] Alexandre Robertson MD [address] [place], [place] [id number] New Consultation 11/15/2024 12:10 PM EDT Procedure Cardiology [address] [address] PreOp Testing 11/20/2024 11:30 AM EDT Hospital Encounter Admitting [address] [address] Alexandre Robertson MD [address] [place], [place] [id number] 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] 11/20/2024 11:30 AM EDT - 11/20/2024 1:30 PM EDT Surgery Admitting [address] [address] Alexandre Robertson MD [address] [place], [place] [address] BRONCHOSCOPY FLEXIBLE ADULT 11/30/2024 3:30 PM EDT [facility] Nutrition Therapy [address] [place] [address] Jesusita Pabon, RD [address] [place] [address] Follow up lung/ severe weight loss Scheduled Procedures Name Priority Associated Diagnoses Date/Ti me BRONCHOSCOPY FLEXIBLE ADULT Bronchiolar disease 11/20/2024 11:30 AM EDT documented as of this encounter Visit Diagnoses Not on filedocumented in this encounter Care Teams System Technologist Relationship Specialty Start Date End Date Doug Bowles PCP - General 02/23/06 10/26/24 documented as of this encounter
--- OUTSIDE RECORDS SUMMARY | 2024-11-02 21:40 | XMS_ITS | Clinical Summary ---
Author Organization [facility] Address [id number] [address] [place] [address] Care Team Providers Care Spa Consultant Name Role Phone Alina Ragland MD Primary Care Provider [phone] Allergies Active Allergy Reactions Criticality Noted Date Comments Sulfamethoxazole-Trimethoprim 2016 Medications varenicline (CHANTIX CONTINUING MONTH BOX) 1 mg tablet Take 1 tablet (1 mg total) by mouth 2 (two) times a day. Take with full glass of water. 56 tablet 3 03/31/2017 Active PEPSIN/GA/OXBI LE/PANCREAT/BET (BHPFXX-QFS-DN GZDW-TNF-VSW-PA P ORAL) Take by mouth. Active ibuprofen [...] 03/31/2017 2:54 PM EDT Plan of Treatment Upcoming Encounters Date Type Department Care Team (Late st Contact Info) Description 11/08/2024 2:30 PM EDT Office Visit [facility] [address] [place] [address] Maritza Best MD [address] [place] [address] Health Maintenance Due Date Last Done Comments Depression Screening 1973 Tobacco Screening 1973 Adult BMI Screening 11/03/1979 DTaP,Tdap and Td Vaccines (1 - Tdap) 1980 Zoster (Shingles) Vaccine (1 of 2) 11/03/2011 Influenza Vaccine 02/12/2025 Medical Devices Not on file Insurance [employer]M Care Teams Spa Consultant Relationship Specialty Start Date End Date Alina Ragland MD [address] [place] [phone] PCP - General Family Medicine 09/30/20
--- OUTSIDE RECORDS SUMMARY | 2024-11-02 21:41 | XMS_ITS | Clinical Summary ---
Author Organization [facility] Address [address] [place], [place] [id number] Care Team Providers Care Cam Specialist Name Role Phone Brandi Alvarado APRN.CNP Primary Care Provider [phone] Allergies Active Allergy Reactions Criticality Noted Date [...] Department Care Team Description 11/01/2024 Telephone Hematology/Oncology [address] [place] [address] [place] [address] Brittany Marie, RN Patient Update; Appointment 11/01/[address] Appointment (PreOp Bronch) 10/31/2024 Patient Update Pulmonary Medicine [address] [place], [place] [phone] Maryuri Carrasquillo MD Bronchoscopy Scheduling- cleared (Initial Bronch Request ) 10/30/2024 2:30 PM EDT Education Nutrition Therapy [address] [place] [phone] [address] Nutrition Telephone 10/27/2024 9:00 AM EDT Visit (SP) Office Hematology/Oncology [address] [place] [address] [place] [address] Kvng Perez MD Malignant neoplasm of lower lobe of right lung (HCC) (Primary Dx) 10/27/2024 Telephone Pulmonary Medicine [address] [phone] Janell An Bronchoscopy Referral 10/25/2024 Abstract Hematology/Oncology [address] [place] [address] Kvng Perez MD from Last 3 Months [...] risk 9 10/27/2024 Data from: https://www.neighborhoodatlas.medicine.[facility].edu/. Last address used for calculation [address] [...] AM EDT Visit (SP) Office Hematology/Oncology [address] [place] [address] Kvng Perez MD [address] [place] [address] 2 week follow up 11/10/2024 9:00 AM EDT Office Visit Radiation Oncology [address] [place] [address] Ezra Moreno MD [address] [place] [place] [address] Consult dx Lung cancer 11/15/2024 11:00 AM EDT Office Visit Pulmonary Medicine [address] [address] Alexandre Robertson MD [address] [place] [address] New Consultation 11/15/2024 12:10 PM EDT Procedure Cardiology [address] [address] PreOp Testing 11/20/2024 11:30 AM EDT Hospital Encounter Admitting [address] [address] Alexandre Robertson MD [address] [place] [address] 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] 11/20/2024 11:30 AM EDT - 11/20/2024 1:30 PM EDT Surgery Admitting [address] [address] Alexandre Robertson MD [address] [place] [address] BRONCHOSCOPY FLEXIBLE ADULT 11/30/2024 3:30 PM EDT [facility] Nutrition Therapy [address] [place] [address] Bee Pabon, JAMIL [address] [place] [address] Follow up lung/ severe weight loss Scheduled [...] PM EDT Images were obtained outside of [facility] Procedure Note Provider, [facility] [place] - 10/23/2024 Images were obtained outside of [facility] us Ccf Provider RADIOLOGY Final Result * OT-CT ANGIO CHEST IMPORT (10/06/2024) Anatomical Region Laterality Modality Other 10/06/2024 Narrative 10/23/2024 6:25 PM EDT Images were obtained outside of [facility] Procedure Note Provider, [facility] [place] - 10/23/2024 Images were obtained outside of [facility] Cc Provider RADIOLOGY Final Result * CT-CT CHEST WO CON IMPORT (10/06/2024) Anatomical Region Laterality Modality Other 10/06/2024 Narrative 10/23/2024 2:57 PM EDT Images were obtained outside of [facility] Procedure Note Provider, [facility] [place] - 10/23/2024 Images were obtained outside of [facility] Provider RADIOLOGY Final Result from Last 3 Months Insurance BLUE CARD PPO OOS Care Teams Cam Specialist Relationship Specialty Start Date End Date Brandi Alvarado, LEAD MACHINIST.COOK RESTAURANT [address] [place] [phone] PCP - General Nurse Practitioner 10/27/24
--- OUTSIDE RECORDS SUMMARY | 2024-11-02 21:41 | XMS_ITS | Encounter Summary ---
Author Organization [facility] Address [address] [place] [address] Care Team Providers Care Loom Changeover Operator Name Role Phone Brandi Alvarado APRN.[employer] Primary Care Provider [phone] Source Comments In the event this information is protected by the Federal Confidentiality of Alcohol and Drug AbusePatient Records regulations: The Federal rules restrict any use of the information to criminally investigate or prosecute any alcohol or drug abuse patient.[facility] Reason for Referral * Outpatient Procedure (Urgent) - Pending Review Specialty Diagnoses / Procedures Referred By Contac t Referred To Contact [facility] Diagnoses Pre-op testing Procedures ECG COMPLETE ECG ROUTINE ECG W/LEAST 12 LDS W/I&R Maryuri Carrasquillo MD [address] [place] [address] Phone: tel: fax: [facility] [address] [address] Referral ID Status Reason Start Date Expiration Date Visits Requested Visits Authorized [id number] Pending Review Auto-Generat ed Referral 10/31/2024 10/31/2025 1 1 Reason for Visit * Reason Onset Date Comments Bronchoscopy Scheduling- cleared 10/31/2024 Initial Bronch Request Encounter Details Date Type Department Care Team (Late st Contact Info) Description 10/31/2024 Patient Update Pulmonary Medicine [address] [address] Maryuri Carrasquillo MD [address] [place] [address] Bronchoscopy Scheduling- cleared (Initial Bronch Request ) [...] is lower risk 9 10/27/2024 Data from: https://www.neighborhoodatlas.medicine.[facility]/. Last address used for calculation [address] [...] on anticoagulants/anti-plt therapy?: No Nursing Considerations: (ie: correction, TB, respiratory isolation, clinical trial, Specific protocol etc.) none Additional notes to the concrete pump operator helper: OSH Bronchoscopy showed an mass obstructing BI, patient requestedIP evaluation. SqCell Carcinoma. T4N2M0 IIIB for now, starting chemorads Consultation request/referral by: Referring Physician: Dr. Kvng Perez Address: [place] Phone #: [phone] Fax #: [phone] Reviewed by: MD Maryuri Aguilar MD October [...] 8:30 AM EDT Visit (SP) Office Hematology/Oncology [address] [place] [address] [place] [address] Kvng Perez MD [address] [place] [address] [place] [address] 2 week follow up 11/10/2024 9:00 AM EDT Office Visit Radiation Oncology [address] [facility] [place] [address] Ezra Moreno MD [address] [facility] [place] [address] Consult dx Lung cancer 11/15/2024 11:00 AM EDT Office Visit Pulmonary Medicine [address] [place] [address] Alexandre Robertson MD [address] [place] [address] New Consultation 11/15/2024 12:10 PM EDT Procedure Cardiology [address] [address] PreOp Testing 11/20/2024 11:30 AM EDT Hospital Encounter Admitting [address] [address] Alexandre Robertson MD [address] [place] [address] 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] 11/20/2024 11:30 AM EDT - 11/20/2024 1:30 PM EDT Surgery Admitting [address] [address] Alexandre Robertson MD [address] [place] [address] BRONCHOSCOPY FLEXIBLE ADULT 11/30/2024 3:30 PM EDT [facility] Nutrition Therapy [address] [place] [address] Bee Pabon, RD [address] [place] [address] Follow up lung/ severe weight loss Scheduled [...] bronchus documented in this encounter Care Teams Loom Changeover Operator Relationship Specialty Start Date End Date Brandi Alvarado, RECONCILING CLERK.COVERSTITCH ELASTIC ATTACHER [address] [place] [address] PCP - General Nurse Practitioner 10/27/24 documented as of this encounter
--- OUTSIDE RECORDS SUMMARY | 2024-11-02 21:41 | XMS_ITS | Clinical Summary ---
Author Organization [facility] Address [address] [place] [address] Care Team Providers Care Director Education Name Role Phone Unavailable Primary Care Provider Unavailabl e Encounters Date Type Department Care Team Description 10/09/2024 Results Follow-Up [facility] [address] [place] [phone] Marvel Shields PA 10/07/2024 Clinisync Result Encounter [...] ORDERABLES Final Re sult Performing Organization Address [facility] de Phone Number [facility] * BLOOD CULTURE 2 (10/06/2024 6:20 [...] [facility] BLOOD ORDERABLES Final Re sult [facility] from Last 3 Months Insurance [facility]
--- OUTSIDE RECORDS SUMMARY | 2024-11-02 21:41 | XMS_ITS | Encounter Summary ---
Author Organization [facility] Address [address] [place] [address] Care Team Providers Care Wire Bender Name Role Phone Unavailable Primary Care Provider Unavailabl e Encounter Details Date Type Department Care Team (Late st Contact Info) Description 10/09/2024 Results Follow-Up [facility] [address] [facility] [address] [place] [id number] Marvel Shields PA [address] [facility] [address] [place] [address] Social History Tobacco Use Types Packs/Day Years [...]
--- OUTSIDE RECORDS SUMMARY | 2024-11-02 21:41 | XMS_ITS | Encounter Summary ---
Author Organization [facility] Address [address] [place] [address] Care Team Providers Care Reading Recovery Teacher Name Role Phone Jenny Brandi Fowler APRN.[facility] Primary Care Provider [phone] Source Comments In the event this information is protected by the Federal Confidentiality of Alcohol and Drug AbusePatient Records regulations: The Federal rules restrict any use of the information to criminally investigate or prosecute any alcohol or drug abuse patient.[facility] Reason for Visit * Reason Comments Patient Update Appointment Encounter Details Date Type Department Care Team (Late st Contact Info) Description 11/01/2024 Telephone Hematology/Oncology [address] [place] [address] [place] [address] Brittany Marie RN Patient Update; Appointment [...] EDT Pt reports pt is scheduled at [facility] for a second bronchoscopy 11/20/24 [...] 8:30 AM EDT Visit (SP) Office Hematology/Oncology [address] [place] [address] [place] [address] Kvng Perez MD [address] [place] [address] [place] [address] 2 week follow up 11/10/2024 9:00 AM EDT Office Visit Radiation Oncology [address] [facility] [place] [address] Ezra Moreno MD [address] 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] 11/20/2024 11:30 AM EDT - 11/20/2024 1:30 PM EDT Surgery Admitting [address] [address] Alexandre Robertson MD [address] [place], [place] [address] BRONCHOSCOPY FLEXIBLE ADULT 11/30/2024 3:30 PM EDT [facility] Nutrition Therapy [address] [place] [address] Bee Pabon, RD [address] [place] [address] Follow up lung/ severe weight loss Scheduled Procedures Name Priority Associated Diagnoses Date/Ti me BRONCHOSCOPY FLEXIBLE ADULT Bronchiolar disease 11/20/2024 11:30 AM EDT documented as of this encounter Visit Diagnoses Not on filedocumented in this encounter Care Teams Reading Recovery Teacher Relationship Specialty Start Date End Date Brandi Alvraado, SUPERVISOR IRRIGATION.PREPLEATER [address] [place] [address] PCP - General Nurse Practitioner 10/27/24 documented as of this encounter
--- OUTSIDE RECORDS SUMMARY | 2024-11-02 21:41 | XMS_ITS | Encounter Summary ---
Author Organization [facility] Address [address] [place] [address] Care Team Providers Care Poultry And Fish Butcher Name Role Phone Jenny Brandi Fowler APRN.[facility] Primary Care Provider [phone] [phone] Source Comments In the event this information is protected by the Federal Confidentiality of Alcohol and Drug AbusePatient Records regulations: The Federal rules restrict any use of the information to criminally investigate or prosecute any alcohol or drug abuse patient.[facility] Reason for Visit * Reason Comments Appointment PreOp Bronch Encounter Details Date Type Department Care Team (Late st Contact Info) Description 11/01/2024 Telephone HOSP MAIN G042 [address] [place] [address] Appointment (PreOp [...] is lower risk 9 10/27/2024 Data from: https://www.neighborhoodatlas.medicine.[facility].edu/. Last address used for calculation [address] [...] 8:30 AM EDT Visit (SP) Office Hematology/Oncology [address] [place] [address] [place] [address] Kvng Perez MD [address] [place] [address] 2 week follow up 11/10/2024 9:00 AM EDT Office Visit Radiation Oncology [address] [place] [address] Ezra Moreno MD [address] [place] [address] Consult dx Lung cancer 11/15/2024 11:00 AM EDT Office Visit Pulmonary Medicine [address] [address] Alexandre Robertson MD [address] [place] [address] New Consultation 11/15/2024 12:10 PM EDT Procedure Cardiology [address] [address] PreOp Testing 11/20/2024 11:30 AM EDT Hospital Encounter Admitting [address] [address] Alexandre Robertson MD [address] [place] [address] 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] 11/20/2024 11:30 AM EDT - 11/20/2024 1:30 PM EDT Surgery Admitting [address] [address] Alexandre Robertson MD [address] [place] [address] BRONCHOSCOPY FLEXIBLE ADULT 11/30/2024 3:30 PM EDT [facility] Nutrition Therapy [address] [place] [address] G[place]den Bee, RD [address] [place] [address] Follow up lung/ severe weight loss Scheduled Procedures Name Priority Associated Diagnoses Date/Ti me BRONCHOSCOPY FLEXIBLE ADULT Bronchiolar disease 11/20/2024 11:30 AM EDT documented as of this encounter Visit Diagnoses Not on filedocumented in this encounter Care Teams Poultry And Fish Butcher Relationship Specialty Start Date End Date Brandi Alvarado, BANK EXAMINER.PLUMBING SERVICE TECHNICIAN [address] [place] [address] PCP - General Nurse Practitioner 10/27/24 documented as of this encounter
--- NOTE | 2024-11-02 22:38 | ECG_ITS ---
The [facility] Test Date: 2024-11-02 Pat Name: JATIN KOCH Department: Room: 2191 Gender: Male Hospice Plan Administrator: : 1960 Requested By: [id number] Order Number: [id number] Reading MD: AGATHA SALAZAR M.D. Measurements Intervals [place] Rate: 123 P: -[address] [place]: 150 QRS: 107 QRSD: 128 T: 138 QT: 360 QTc: 433 Interpretive Statements Sinus tachycardia 2450 Right bundle branch block 7100 Abnormal right axis deviation 9150 abnormal ECG Compared to ECG 11/02/2024 22:10:49 High grade AV block no longer present Junctional escape complex(es) no longer present Electronically Signed On 11-04-2024 10:05:39 EDT by AGATHA SALAZAR M.D.
--- NOTE | 2024-11-02 22:44 | ECG_ITS ---
The [facility] Test Date: 2024-11-02 Pat Name: JATIN KOCH Department: Room: - Gender: Male Warp Picker: : 1960 Requested By: [id number] Order Number: [id number] Reading MD: AGATHA SALAZAR M.D. Measurements Intervals [place] Rate: 56 P: 124 [place]: 278 QRS: 232 QRSD: 92 T: 88 QT: 388 QTc: 380 Interpretive Statements Sinus tachycardia with high grade AV block with junctional escape beats RIGHT BUNDLE BRANCH BLOCK 0101 Possible arm leads reversed, check lead requested 9150 abnormal ECG Compared to ECG 11/02/2024 09:07:15 High grade AV block is now present Junctional escape beats are now present Electronically Signed On 11-04-2024 10:05:29 EDT by AGATHA SALAZAR M.D.
--- NOTE | 2024-11-02 22:46 | XR_ITS ---
The [address] [address] Patient Name: JATIN KOCH MRN: [id number] date: 1960 Sex: M Assigned Patient Location: ER Current Patient Location: ER Accession/Order Number: [id number] Exam Date: 11/02/2024 23:26 Report Date: 11/02/2024 23:29 At the request of: AKBAR JUSTICE MD Procedure: XR chest 1V Plain film chest Single view HISTORY: Chest pain. Dyspnea. Recent diagnosis of lung cancer COMPARISON: CT chest 10/06/2024 FINDINGS: SUPPORT DEVICES: None POSTSURGICAL CHANGES: None HEART: Within normal limits PULMONARY MIK: Right hilar mass corresponding with CT findings for 2524 redemonstrated. MEDIASTINUM: Unremarkable LUNGS AND PLEURA: The right lower lobe postobstructive changes redemonstrated. No new regions of consolidation. No developing pleural effusion or pneumothorax. BONY STRUCTURES: Intact ADDITIONAL FINDINGS None XR/XR chest 1V IMPRESSION: Redemonstration of right hilar mass with right lower lobe postobstructive changes. No new regions of consolidation or developing pleural effusion or pneumothorax. Impression dictated by: Kirk Mccann M.D. 11/02/2024 11:29 PM Dictation Location: [place] [address] Electronically authenticated by: [id number] Y Date: 11/02/2024 23:29
[2024-11-02 22:51] LABS: Hematocrit 35.4 % (42.0-54.0); Hemoglobin 11.7 g/dL (14.0-18.0); Mean Corpuscular HGB Conc 33.1 g/dL (29.9-35.2); Mean Corpuscular Hemoglobin 28.3 pg (25.9-34.0); Mean Corpuscular Volume 85.7 fL (80.0-94.0); Mean Platelet Volume 9.3 fL (9.5-13.5); Platelet Count 289 10^3/uL (150-450); Red Blood Count 4.13 10^6/uL (4.70-6.10); Red Cell Distribution Width 15.4 % (11.0-15.0); White Blood Count 15.8 10^3/uL (4.0-11.0)
[2024-11-02] MEDS: ACETAMINOPHEN 325 MG TABLET 650 MG PO (23:01)
[2024-11-02] MEDS: 0.9 % SODIUM CHLORIDE 1,000 ML 1000 ML IV (23:02)
[2024-11-02] MEDS: KETOROLAC TROMETHAMINE 30 MG/ML VIAL 15 MG IVP (23:02)
[2024-11-02 23:04] LABS: Band Neutrophils Absolute 0.2 10^3/uL (0.0-0.3); Eosinophils Absolute Manual 0.79 10^3/uL (0.00-0.70); Lymphocytes Absolute Manual 1.42 10^3/uL (1.20-3.80); Monocytes Absolute Manual 1.26 10^3/uL (0.30-0.80); Segmented Neut Absolute Manual 12.16 10^3/uL (1.4-6.5)
[2024-11-02 23:09] LABS: Alanine Aminotransferase 29 U/L (16-63); Albumin Globulin Ratio 0.7; Albumin Level 2.6 g/dL (3.4-5.0); Alkaline Phosphatase 81 U/L (46-116); Anion Gap 16.5; Aspartate Amino Transferase 13 U/L (15-37); BUN Creatinine Ratio 21.8; Bilirubin Total 0.4 mg/dL (0.2-1.0); Calcium 9.1 mg/dL (8.5-10.1); Carbon Dioxide 23.5 mmol/L (21.0-32.0); Chloride 100 mmol/L (98-107); Estimated GFR (African America >60 (>=60 mL/min/1.73m^2); Estimated GFR (Non-African Ame >60 (>=60 mL/min/1.73m^2); Glucose 125 mg/dL (74-106); Sodium 136 mmol/L (136-145); Total Protein 6.6 g/dL (6.4-8.2); Troponin I High Sensitivity 10.9 pg/mL (4.0-76.1)
[2024-11-02 23:11] LABS: Lactate/Lactic Acid 2.1 mmol/L (0.4-2.0)
[2024-11-03] VITALS (27 sets, daily range): BP systolic 102–116; BP diastolic 56–72; PULSE 84–109; TEMP 36.4–37.7; O2SAT 93–97; BMI 31.4
--- NOTE | 2024-11-03 00:08 | ED.CHESTPAI1 ---
HPI - Chest Pain General Chief Complaint: Chest Pain Stated Complaint: sob, chest pain Time Seen by Provider: 11/02/24 22:30 Source: patient Mode of arrival: Wheelchair Limitations: no limitations History of Present Illness HPI narrative: This 64-year-old male who was recently diagnosed with squamous cell carcinoma of the right lung with a questionable pneumonia adjacent to the tumor who also had an MRI of his brain that was negative and is scheduled for a surgical procedure at [facility] to remove the bronchial portion of the tumor and then he will start chemotherapy and radiation in conjunction with [facility] oncology presents for evaluation of chest pain and shortness of breath. The patient's states for the past several months he has been having intermittent fevers and had COVID-19, then influenza, he then had a nonproductive cough and was medicated with antibiotics and steroids without clinical improvement. He had a 30 pound weight loss in addition to his URI symptoms and cough. He was seen by pulmonology ( Dr Feliciano) and a CT scan of the chest was ordered that showed a right lower lobe lung mass with collapse of the right lower lobe. He subsequently had an MRI of his brain that was negative and a PET scan. The patient was seen earlier today for dizziness and a generalized headache. The patient's states that he has been having fevers on and off for the past several months. He does not have any focal neurologic symptoms. He denies any nausea or vomiting. He has no focal neurologic weakness numbness or tingling. He was noted to have episodes of tachycardia and then bradycardia while in the ER. He was taken to room 5 and connected to a engine monitor for continual monitoring purposes. He is currently on 10 mg of prednisone and Levaquin as it was thought that he may have a pneumonia adjacent to his lung mass. He has a history of tobacco use but is not smoked since 2016. Related Data Home Medications ?Medication ?Instructions ?Recorded ?Confirmed cyclobenzaprine 10 mg tablet 10 mg PO .qhs 10/06/24 11/02/24 meloxicam 7.5 mg tablet 7.5 mg PO QDAY 10/06/24 11/02/24 metoprolol succinate 50 mg 50 mg PO QPM 10/06/24 11/02/24 tablet,extended release 24 hr acetaminophen 325 mg tablet 650 mg PO Q6H PRN pain 10/12/24 11/02/24 (Tylenol) dextromethorphan-guaifenesin 30 1 tab PO DAILY 10/12/24 11/02/24 mg-600 mg tablet extended hr (Mucinex DM) fluticasone propionate 50 1 spray intranasal DAILY PRN nasal 10/12/24 11/02/24 mcg/actuation nasal congestion spray,suspension (24 Hour Allergy Relief) fsuxpfpjhevt-tfhncrvt-mlbopn 1 tab PO DAILY 10/12/24 11/02/24 tablet (Multivitamin 50 Plus tablet) amoxicillin 875 mg-potassium tab 11/02/24 clavulanate 125 mg tablet benzonatate 200 mg capsule 200 mg PO DAILY 11/02/24 11/02/24 prednisone 20 mg tablet mg 11/02/24 Previous Rx's ?Medication ?Instructions ?Recorded meclizine 25 mg tablet 25 mg PO TID #20 tabs 11/02/24 Allergies Allergy/AdvReac Type Severity Reaction Status Date / Time codeine Allergy Severe Flushing Verified 11/02/24 22:12 sulfamethoxazole (From AdvReac Severe difficulty Verified 11/02/24 22:12 Bactrim) urinating trimethoprim (From Bactrim) AdvReac Severe Unknown Verified 11/02/24 22:12 Review of Systems ROS Status of ROS 10 or more systems reviewed and unremarkable except as noted in history and below [facility] Medical History (Updated 11/03/24 @ 01:55 by Lyndsay Campbell MD) Carpal tunnel syndrome ?G56.00 - Carpal tunnel syndrome, unspecified upper limb (ICD-10) Back pain ?M54.9 - Dorsalgia, unspecified (ICD-10) Arthritis ?M19.90 - Unspecified osteoarthritis, unspecified site (ICD-10) Snores ?R06.83 - Snoring (ICD-10) Sleep apnea ?G47.30 - Sleep apnea, unspecified (ICD-10) Influenza ?J11.1 - Influenza due to unidentified influenza virus with other respiratory manifestations (ICD-10) Right lower lobe lung mass ?R91.8 - Other nonspecific abnormal finding of lung field (ICD-10) Skin cancer ?C44.90 - Unspecified malignant neoplasm of skin, unspecified (ICD-10) Hypoxia ?R09.02 - Hypoxemia (ICD-10) 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 - Shortness of breath (ICD-10) ?U09.9 - Post covid-19 condition, unspecified (ICD-10) HTN (hypertension) ?I10 - Essential (primary) hypertension (ICD-10) KERR (dyspnea on exertion) ?R06.09 - Other forms of dyspnea (ICD-10) Pneumonia ?J18.9 - Pneumonia, unspecified organism (ICD-10) COVID-19 ?U07.1 - COVID-19 (ICD-10) History of COVID-19 ?Z86.16 - Personal history of COVID-19 (ICD-10) Surgical History (Updated 10/12/24 @ 12:46 by Macy Goodrich NP) H/O transurethral resection of prostate ?Z98.890 - Other specified postprocedural states (ICD-10) ?Z90.79 - Acquired absence of other genital organ(s) (ICD-10) History of colonoscopy ?Z98.890 - Other specified postprocedural states (ICD-10) History of myringotomy ?Z98.890 - Other specified postprocedural states (ICD-10) History of carpal tunnel release ?Z98.890 - Other specified postprocedural states (ICD-10) History of carpal tunnel surgery ?Z98.890 - Other specified postprocedural states (ICD-10) History of tonsillectomy ?Z90.89 - Acquired absence of other organs (ICD-10) Family History (Updated 10/06/24 @ 23:50 by Svetlana Kimball RN) Father Family history of myocardial infarction Son Family history of stroke Other Family history of CHF (congestive heart failure) Social History (Updated 10/06/24 @ 23:51 by Svetlana Kimball RN) Within the past year, how often did you have a drink containing alcohol: never Score interpretation: A score less than 4 is consistent with normal alcohol consumption. Smoking status: Former smoker Non-prescribed substance use: denies use Highest level of school completed/degree received: Associate degree: occupational, technical, vocational program Are you now , , , , never or living with a partner: In a typical week, how many times do you talk on the telephone with family, friends, or neighbors: once per week How often do you get together with friends or relatives: once per week Little interest or pleasure in doing things: not at all Feeling down, depressed, or hopeless: not at all Do you think of yourself as: straight/heterosexual Gender Identity: male Exam Narrative Exam Narrative: Vital signs and Nursing Notes reviewed: Rectal temperature is 102.4, he is tachycardic in the 120s, he is moderately hypoxic with pulse ox of 93, blood pressure is stable, he is mildly tachypneic with respirate of 22 General: Nontoxic but somewhat ill-appearing male, he is speaking complete sentences without respiratory distress HEENT: Normocephalic atraumatic, mucous membranes are moist and pink, eyes are clear, normal conjunctiva, vision is grossly intact, posterior pharynx is normal in appearance. Neck: Supple, no JVD Chest: Lungs are clear with occasional expiratory wheezing, diminished breath sounds in the right lower lobe, no accessory muscle use CVS: Regular rate and rhythm S1-S2 initially the patient's pulse was in the 60s and regular, subsequently patient became tachycardic with pulse in the 120s with episodes of bradycardia that are nonsustained, no murmurs rubs or gallops, pulses are brisk and equal bilaterally ABD: Soft, nondistended, nontender, no rebound guarding or rigidity, bowel sounds are normal, no pulsatile masses appreciated Extremities: Moving all extremities, no lower extremity tenderness or swelling noted, negative Homans' sign, pulses are brisk and equal bilaterally Skin: Normal in appearance without rash,pallor, petechiae or purpura Neuro: No focal deficits Constitutional Vital Signs, click to edit/add: Last Vital Signs Temp 97.7 F 11/03/24 02:44 Pulse 89 11/03/24 03:01 Resp 18 11/03/24 02:44 BP 102/63 11/03/24 02:44 Pulse Ox 93 L 11/03/24 02:44 O2 Del Method Room Air 11/03/24 02:44 Course Vital Signs Vital signs: Vital Signs Blood Pressure 138/65 11/02/24 22:07 Pulse Oximetry 94 L 11/02/24 22:07 Temperature 97.7 F 11/03/24 02:44 Pulse Rate 89 11/03/24 03:01 Respiratory Rate 18 11/03/24 02:44 Blood Pressure 102/63 11/03/24 02:44 Pulse Oximetry 93 L 11/03/24 02:44 Oxygen Delivery Method Room Air 11/03/24 02:44 MDM - Chest Pain MDM Narrative Medical decision making narrative: This 64-year-old male who was recently diagnosed with right sided squamous cell lung cancer and has not started treatment yet who was empirically placed on Augmentin and prednisone due to a possible pneumonia is brought to the emergency department by his for evaluation of fever and dizziness/weakness chest pain and shortness of breath. He was seen earlier today for some dizziness and was discharged home with meclizine. he did recently have an MRI of his brain that was negative for metastatic cancer. Upon arrival an EKG was performed at triage which is an atrial rhythm at 56 bpm with a first-degree AV block and multiple PVCs, after being taken back to a room it was noted that he was tachycardic and diaphoretic. He was moved to room 5 because it was noted that at times when he became dizzy or nauseated his pulse dropped down to into the 40s and 50s. A rectal temperature done at that time was 102.4. A repeat EKG was ordered due to the change in his rhythm. The repeat EKG is a sinus rhythm at 123 bpm with a normal axis. Right bundle branch block is also noted. No acute ST segment elevation was appreciated. This is similar to the prior EKG in terms of the right bundle branch block but otherwise a different pattern, it is possible that there was an arm lead reversal on the first EKG. A septic workup was ordered including CBC with differential, comprehensive metabolic profile, troponin, 2 sets of blood cultures and lactic acid. 1 view chest x-ray was ordered and shows persistent right lower lobe infiltrate and perihilar infiltrates. His white count is elevated 15.8 with a stable hemoglobin. Lactic acid is elevated at 2.1. Electrolytes are normal. Troponin is normal. Due to his worsening symptoms spite being on oral antibiotics a CT scan of the chest was repeated to rule out PE, postobstructive pneumonia or pericardial effusion/pleural effusion. He was given 30 cc/kg IV fluids per septic protocol. CT scan of the abdomen pelvis shows normal caliber thoracic aorta with no aneurysmal dilatation and no dissection. Central pulmonary arteries were normal in caliber. No pulmonary embolus was appreciated. There is a large mass within the right lung extending into the mediastinum resulting in complete compression of the right lower lobe bronchus and marked narrowing of the bronchus intermedius and right middle lobe bronchus as seen previously. There is an opacity within the right lower lobe which is not part is related to atelectasis however postobstructive pneumonia is suspected as well. On reevaluation the patient states he is feeling better and told his he wishes he could feel this good home. This is after Toradol, Tylenol and IV fluids. He was treated with IV Zosyn. He is tolerating clear liquids. Repeat lactic acid is 0.7 and repeat troponin is 15. He has remained hemodynamically stable in the emergency department and his pulse has come down to 92. Blood pressure has remained stable at 111/66 and pulse ox is 95% on room air. The patient is agreeable to being admitted for IV antibiotics in an attempt to become stronger for the next leg of his journey including surgical treatment of the obstruction and his right lower lobe bronchus and radiation/chemotherapy. Patient was discussed with the hospitalist and the patient is excepted for admission to [facility]. Medical Records Data Attestation: I reviewed the patient's medical records. Lab Data Attestation: I reviewed the patient's lab results. Labs: Lab Results 11/02/24 11/03/24 Range/Units 22:25 01:23 WBC 15.8 H (4.0-11.0) 10^3/uL RBC 4.13 L (4.70-6.10) 10^6/uL Hgb 11.7 L (14.0-18.0) g/dL Hct 35.4 L (42.0-54.0) % MCV 85.7 (80.0-94.0) fL MCH 28.3 (25.9-34.0) pg MCHC 33.1 (29.9-35.2) g/dL RDW 15.4 H (11.0-15.0) % Plt Count 289 (150-450) 10^3/uL MPV 9.3 L (9.5-13.5) fL Seg Neuts % (Manual) 77.0 H (43.0-75.0) Band Neutrophils % 1.0 (0-5) % Lymphocytes % (Manual) 9.0 L (20.5-60.0) % Monocytes % (Manual) 8.0 (1.7-12.0) % Eosinophils % (Manual) 5.0 (0.9-7.0) % Basophils % (Manual) 0.0 L (0.2-2.0) % Neutrophils # (Manual) 12.16 H (1.4-6.5) 10^3/uL Band Neutrophils # 0.2 (0.0-0.3) 10^3/uL Lymphocytes # (Manual) 1.42 (1.20-3.80) 10^3/uL Monocytes # (Manual) 1.26 H (0.30-0.80) 10^3/uL Eosinophils # (Manual) 0.79 H (0.00-0.70) 10^3/uL Basophils # (Manual) 0.00 (0.00-0.10) 10^3/uL Sodium 136 (136-145) mmol/L Potassium 4.0 (3.5-5.1) mmol/L Chloride 100 (98-107) mmol/L Carbon Dioxide 23.5 (21.0-32.0) mmol/L Anion Gap 16.5 BUN 19.0 H (7.0-18.0) mg/dL Creatinine 0.87 (0.70-1.30) mg/dL Est GFR ( Amer) >60 (>=60 mL/min/1.73m^2) Est GFR (Non-Af Amer) >60 (>=60 mL/min/1.73m^2) BUN/Creatinine Ratio 21.8 Glucose 125 H (74-106) mg/dL Lactate 2.1 H* 0.7 (0.4-2.0) mmol/L Calcium 9.1 (8.5-10.1) mg/dL Total Bilirubin 0.4 (0.2-1.0) mg/dL AST 13 L (15-37) U/L ALT 29 (16-63) U/L Alkaline Phosphatase 81 (46-116) U/L Troponin I High Sens 10.9 15.1 (4.0-76.1) pg/mL C-Reactive Protein 9.21 H (<=0.50) mg/dL Total Protein 6.6 (6.4-8.2) g/dL Albumin 2.6 L (3.4-5.0) g/dL Globulin 4.0 g/dL Albumin/Globulin Ratio 0.7 ECG Data Attestation: I personally reviewed and interpreted this ECG as follows: (Atrial rhythm at 56 bpm with frequent PVCs, first-degree AV block, nonspecific ST changes, no acute ST segment elevation or T wave inversion) Heart Score ECG: NS Repolarization Age: >45-<65 years Risk Factors: 1 or 2 Risk Factors Troponin: <Normal Limit Discharge Plan Discharge Chief Complaint: Chest Pain Clinical Impression: RLL pneumonia, Lung cancer, lower lobe, Sepsis Patient Disposition: Admitted As Inpatient Time of Disposition Decision: 01:54 Condition: Fair Discharge Date/Time: 11/03/24 02:36
[2024-11-03] MEDS: 0.9 % SODIUM CHLORIDE 1,000 ML 1000 ML IV (01:20)
[2024-11-03 01:48] LABS: Troponin I High Sensitivity 15.1 pg/mL (4.0-76.1)
[2024-11-03 01:49] LABS: Lactate/Lactic Acid 0.7 mmol/L (0.4-2.0)
[2024-11-03] MEDS: PIPERACILLIN SODIUM/TAZOBACTAM 3.375 GM in 0.9 % SODIUM CHLORIDE 50 ML IV ×2 (02:00→10:11)
[2024-11-03 02:30] LABS: C Reactive Protein 9.21 mg/dL (<=0.50)
[2024-11-03] MEDS: METHYLPREDNISOLONE SOD SUCC PF 40 MG/ML VIAL IVP ×2 (03:10→12:21)
[2024-11-03] MEDS: 0.9 % SODIUM CHLORIDE 500 ML IV (03:11)
[2024-11-03] MEDS: BENZONATATE 100 MG CAPSULE 200 MG PO (05:41)
[2024-11-03] MEDS: MECLIZINE HCL 12.5 MG TABLET 25 MG PO ×2 (05:41→14:21)
[2024-11-03 05:44] LABS: Basophils Absolute Auto 0.1 10^3/uL (0.0-0.1); Basophils Percent Auto 0.4 % (0.2-2.0); Eosinophils Absolute Auto 0.7 10^3/uL (0.0-0.7); Eosinophils Percent Auto 5.7 % (0.9-7.0); Hematocrit 33.5 % (42.0-54.0); Hemoglobin 10.3 g/dL (14.0-18.0); Immature Granulocytes Abs Auto 0.21 10^3/uL (0.00-0.03); Immature Granulocytes Pct Auto 1.8 % (0.0-0.5); Lymphocytes Absolute Auto 1.4 10^3/uL (1.2-3.8); Lymphocytes Percent Auto 11.3 % (20.5-60.0); Mean Corpuscular HGB Conc 30.7 g/dL (29.9-35.2); Mean Corpuscular Hemoglobin 27.1 pg (25.9-34.0); Mean Corpuscular Volume 88.2 fL (80.0-94.0); Mean Platelet Volume 9.1 fL (9.5-13.5); Monocytes Absolute Auto 0.7 10^3/uL (0.3-0.8); Neutrophils Percent Auto 74.8 % (43.0-75.0); Platelet Count 220 10^3/uL (150-450); Red Cell Distribution Width 15.5 % (11.0-15.0)
[2024-11-03 06:05] LABS: Alanine Aminotransferase 24 U/L (16-63); Albumin Globulin Ratio 0.6; Albumin Level 2.3 g/dL (3.4-5.0); Alkaline Phosphatase 69 U/L (46-116); Anion Gap 14.5; Aspartate Amino Transferase 11 U/L (15-37); BUN Creatinine Ratio 20.5; Bilirubin Total 0.6 mg/dL (0.2-1.0); Calcium 8.7 mg/dL (8.5-10.1); Chloride 104 mmol/L (98-107); Estimated GFR (African America >60 (>=60 mL/min/1.73m^2); Estimated GFR (Non-African Ame >60 (>=60 mL/min/1.73m^2); Globulin 3.6 g/dL; Glucose 101 mg/dL (74-106); Magnesium 1.8 mg/dL (1.8-2.4); Potassium 4.5 mmol/L (3.5-5.1); Sodium 139 mmol/L (136-145); Total Protein 5.9 g/dL (6.4-8.2)
--- NOTE | 2024-11-03 06:40 | P.HP_ITS ---
HPI H&P: HPI History of Present Illness Chief complaint: RLL PNEUMONIA, LUNG CANCER- LOWER LOBE, SEPSIS Narrative: Patient presented to the emergency room with cough, fever, palpitations, he has a known history of squamous cell cancer of the lung, CT scan in ER showed possible postobstructive pneumonia with significant leukocytosis and the fever patient is admitted I saw patient up in the medical surgical floor actually feeling much better than on admission, no conversational dyspnea some cough throughout the evaluation Opioid HPI Opioid Management Most Recent Pain and Opioid Data: Last Pain Scale 4 11/02/24, 22:41 Last Pain Assessment Today, 03:00 Last ORT Total Score 0 Today, 02:44 Last ORT Risk Category Low Risk Today, 02:44 Review of Systems ROS Status of ROS 10 or more systems reviewed and unremark able except as noted in history and below [facility] Medical History (Updated 11/03/24 @ 01:55 by Lyndsay Campbell MD) Carpal tunnel syndrome ?G56.00 - Carpal tunnel syndrome, unspecified upper limb (ICD-10) Back pain ?M54.9 - Dorsalgia, unspecified (ICD-10) Arthritis ?M19.90 - Unspecified osteoarthritis, unspecified site (ICD-10) Snores ?R06.83 - Snoring (ICD-10) Sleep apnea ?G47.30 - Sleep apnea, unspecified (ICD-10) Influenza ?J11.1 - Influenza due to unidentified influenza virus with other respiratory manifestations (ICD-10) Right lower lobe lung mass ?R91.8 - Other nonspecific abnormal finding of lung field (ICD-10) Skin cancer ?C44.90 - Unspecified malignant neoplasm of skin, unspecified (ICD-10) Hypoxia ?R09.02 - Hypoxemia (ICD-10) 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 - Shortness of breath (ICD-10) ?U09.9 - Post covid-19 condition, unspecified (ICD-10) HTN (hypertension) ?I10 - Essential (primary) hypertension (ICD-10) KERR (dyspnea on exertion) ?R06.09 - Other forms of dyspnea (ICD-10) Pneumonia ?J18.9 - Pneumonia, unspecified organism (ICD-10) COVID-19 ?U07.1 - COVID-19 (ICD-10) History of COVID-19 ?Z86.16 - Personal history of COVID-19 (ICD-10) Surgical History (Updated 10/12/24 @ 12:46 by Macy Goodrich NP) H/O transurethral resection of prostate ?Z98.890 - Other specified postprocedural states (ICD-10) ?Z90.79 - Acquired absence of other genital organ(s) (ICD-10) History of colonoscopy ?Z98.890 - Other specified postprocedural states (ICD-10) History of myringotomy ?Z98.890 - Other specified postprocedural states (ICD-10) History of carpal tunnel release ?Z98.890 - Other specified postprocedural states (ICD-10) History of carpal tunnel surgery ?Z98.890 - Other specified postprocedural states (ICD-10) History of tonsillectomy ?Z90.89 - Acquired absence of other organs (ICD-10) Family History (Updated 10/06/24 @ 23:50 by Svetlana Kimball RN) Father Family history of myocardial infarction Son Family history of stroke Other Family history of CHF (congestive heart failure) Social History (Updated 10/06/24 @ 23:51 by Svetlana Kimball RN) Within the past year, how often did you have a drink containing alcohol: never Score interpretation: A score less than 4 is consistent with normal alcohol consumption. Smoking status: Former smoker Non-prescribed substance use: denies use Highest level of school completed/degree received: Associate degree: occupational, technical, vocational program Are you now , , , , never or living with a partner: In a typical week, how many times do you talk on the telephone with family, friends, or neighbors: once per week How often do you get together with friends or relatives: once per week Little interest or pleasure in doing things: not at all Feeling down, depressed, or hopeless: not at all Do you think of yourself as: straight/heterosexual Gender Identity: male Meds Home Medications and Allergies Home Medications ?Medication ?Instructions ?Recorded ?Confirmed ?Type cyclobenzaprine 10 mg tablet 10 mg PO .qhs PRN muscle pain 10/06/24 11/03/24 History meloxicam 7.5 mg tablet 7.5 mg PO QDAY 10/06/2410/13 History acetaminophen 325 mg tablet 650 mg PO Q6H PRN pain 07/0811/03/24 History (Tylenol) dextromethorphan-guaifenesin 30 1 tab PO DAILY 5 11/02/24 History mg-600 mg tablet extended hr (Mucinex DM) fluticasone propionate 50 1 spray intranasal DAILY PRN nasal 10/12/24 11/02/24 History mcg/actuation nasal congestion spray,suspension (24 Hour Allergy Relief) aihexrufvahg-ogrihyre-jllyde 1 tab PO DAILY 10/12/24 0 11/02/24 History tablet (Multivitamin 50 Plus tablet) benzonatate 200 mg capsule 200 mg PO DAILY PRN cough 0 11/02/24 11/03/24 History meclizine 25 mg tablet 25 mg PO TID #20 tabs 11/02/24 Rx prednisone 20 mg tablet 20 mg PO .QD 11/02/24 History levofloxacin 750 mg tablet 750 mg PO Q24H 14 days #14 tabs 11/03/24 Rx metoprolol succinate 25 mg 25 mg PO .QD 11/03/2411/03 History tablet,extended release 24 hr prednisone 10 mg tablet 50 mg (5 x 10 mg) PO DAILY # 47 tabs 11/03/24 Rx Allergies Allergy/AdvReac Type Severity Reaction Status Date / Time codeine Allergy Severe Flushing Verified 11/02/24 22:12 sulfamethoxazole (From AdvReac Severe difficulty Verified 11/02/24 22:12 Bactrim) urinating trimethoprim (From Bactrim) AdvReac Severe Unknown Verified 11/02/24 22:12 Exam Constitutional Vital Signs, click to edit/add: Last Vital Signs Temp 97.7 F 11/03/24 02:44 Pulse 84 11/03/24 06:00 Resp 18 11/03/24 02:44 BP 102/63 11/03/24 02:44 Pulse Ox 94 L 11/03/24 03:50 O2 Del Method Room Air 11/03/24 03:50 Documenting provider has reviewed patient's vital signs: yes Common normals: no apparent distress Chest Common normals: inspection of chest normal Respiratory Common normals: normal respiratory effort and no retractions; not clear to ascultation bilaterally Auscultation: rhonchi (Rhonchi right lower lobe), diminished lung sounds and egophony (Right lower lobe) Cardio Common normals: regular rate and regular rhythm GI Common normals: Normal to inspection, nondistended, normoactive bowel sounds present and soft to palpation Extremity Common normals: normal to inspection, full ROM and normal capillary refill Results Labs Labs: Short CBC 11/02/24 11/03/24 Range/Units 22:25 05:08 WBC 15.8 H 12.0 H (4.0-11.0) 10^3/uL Hgb 11.7 L 10.3 L (14.0-18.0) g/dL Hct 35.4 L 33.5 L (42.0-54.0) % Plt Count 289 220 (150-450) 10^3/uL BMP 11/02/24 11/03/24 22:25 05:08 Sodium 136 139 Potassium 4.0 4.5 Chloride 100 104 Carbon Dioxide 23.5 25.0 BUN 19.0 H 17.0 Creatinine 0.87 0.83 Glucose 125 H 101 Calcium 9.1 8.7 Liver Function 11/02/24 11/03/24 Range/Units 22:25 05:08 Total Bilirubin 0.4 0.6 (0.2-1.0) mg/dL AST 13 L 11 L (15-37) U/L ALT 29 24 (16-63) U/L Alkaline Phosphatase 81 69 (46-116) U/L Albumin 2.6 L 2.3 L (3.4-5.0) g/dL Assessment and Plan Assessment and Plan (1) Sepsis: (2) Lung cancer, lower lobe: (3) RLL pneumonia: (4) Sleep apnea: (5) HTN (hypertension): (6) KERR (dyspnea on exertion): (7) Pneumonia: Plan Admission findings: Fever, tachycardia, respiratory distress, leukocytosis with lactic acidosis consistent with severe sepsis secondary to right lower lobe pneumonia with postobstructive pneumonia and 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 Medication status. Follow-up with his bid clerk next Wednesday as planned, discharge patient on levofloxacin Iron deficiency anemia as well as immune deficiency anemia-monitor daily Hypertension-maintain home medications Admission status: Patient initially was placed in inpatient status but with his quick rebound I will change patient to observation as it is medically necessary treatment will only span 1 midnight.
--- NOTE | 2024-11-03 08:40 | CM.NOTE ---
Rounds made with Dr. Ward, pt verbalizes he is feeling better this AM. Denies any SOB at this time, possible discharge to home this afternoon after IV antibiotic. Dr. Ward will change pt to OBS status.
--- NOTE | 2024-11-03 08:57 | P.DS_ITS ---
DS: Providers Provider Date of admission: 11/03/24 02:36 Primary care physician: BRANDI ALVARADO Consults: 11/03/24 Consult to Dietitian Routine Reason for consultation: weight loss Has provider been notified: No 11/03/24 06:43 Consult to Pharmacy Routine Consulting Provider: Reason for consultation: Please Magn[place] me when Med Rec is Updated Has provider been notified: No DS: Diagnosis Discharge Diagnosis (1) Sepsis: (2) Lung cancer, lower lobe: (3) RLL pneumonia: (4) HTN (hypertension): DS: Summary Hospital Course Hospital Course: Admission findings: Fever, tachycardia, respiratory distress, leukocytosis with lactic acidosis consistent with severe sepsis secondary to right lower lobe pneumonia with postobstructive pneumonia and 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 Medication status. 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 Time Spent with Patient Time attestation: Total time spent providing and/or coordinating discharge services: Exam Constitutional Vital Signs, click to edit/add: Last Vital Signs Temp 97.5 F L 11/03/24 08:10 Pulse 84 11/03/24 08:10 Resp 18 11/03/24 08:10 BP 113/72 11/03/24 08:10 Pulse Ox 94 L 11/03/24 08:10 O2 Del Method Room Air 11/03/24 08:10 DS: Data Data Completed and Pending Labs on day of discharge: Labs from last 24 hours 11/03/24 11/03/24 11/02/24 05:08 01:23 22:25 WBC 12.0 H 15.8 H RBC 3.80 L 4.13 L Hgb 10.3 L 11.7 L Hct 33.5 L 35.4 L MCV 88.2 85.7 MCH 27.1 28.3 MCHC 30.7 33.1 RDW 15.5 H 15.4 H Plt Count 220 289 MPV 9.1 L 9.3 L Neut % (Auto) 74.8 Lymph % (Auto) 11.3 L Wilcox % (Auto) 6.0 Eos % (Auto) 5.7 Baso % (Auto) 0.4 Neut # (Auto) 9.0 H Lymph # (Auto) 1.4 Wilcox # (Auto) 0.7 Eos # (Auto) 0.7 Baso # (Auto) 0.1 Abs Immat Gran (auto) 0.21 H Seg Neuts % (Manual) 77.0 H Band Neutrophils % 1.0 Lymphocytes % (Manual) 9.0 L Monocytes % (Manual) 8.0 Eosinophils % (Manual) 5.0 Basophils % (Manual) 0.0 L Imm/Tot Granulo (auto) 1.8 H Neutrophils # (Manual) 12.16 H Band Neutrophils # 0.2 Lymphocytes # (Manual) 1.42 Monocytes # (Manual) 1.26 H Eosinophils # (Manual) 0.79 H Basophils # (Manual) 0.00 Sodium 139 136 Potassium 4.5 4.0 Chloride 104 100 Carbon Dioxide 25.0 23.5 Anion Gap 14.5 16.5 BUN 17.0 19.0 H Creatinine 0.83 0.87 Est GFR ( Amer) >60 >60 Est GFR (Non-Af Amer) >60 >60 BUN/Creatinine Ratio 20.5 21.8 Glucose 101 125 H Lactate 0.7 2.1 H* Calcium 8.7 9.1 Magnesium 1.8 Total Bilirubin 0.6 0.4 AST 11 L 13 L ALT 24 29 Alkaline Phosphatase 69 81 Troponin I High Sens 15.1 10.9 C-Reactive Protein 9.21 H Total Protein 5.9 L 6.6 Albumin 2.3 L 2.6 L Globulin 3.6 4.0 Albumin/Globulin Ratio 0.6 0.7 Discharge Plan Discharge Disposition: Home, Self-Care Condition: Fair Discharge Medications: New prednisone 10 mg tablet 50 mg PO DAILY Qty: 47 0RF Rx Instructions: 5/day for 3 days. 4/day for 3 days, 3/day for 3 days, 2/day for 3 days, 1/day for 3 days, 1/2 /day for 4 days levofloxacin 750 mg tablet 750 mg PO Q24H 14 Days Qty: 14 0RF Continued cyclobenzaprine 10 mg tablet 10 mg PO .qhs PRN (Reason: muscle pain) meloxicam 7.5 mg tablet 7.5 mg PO QDAY Mucinex DM 30-600 mg tablet extended release 12 hr 1 tab PO DAILY Multivitamin 50 Plus Tablet 1 tab PO DAILY acetaminophen [Tylenol] 325 mg tablet 650 mg PO Q6H PRN (Reason: pain) fluticasone propionate [24 Hour Allergy Relief] 50 mcg/actuation spray,suspension 1 spray intranasal DAILY PRN (Reason: nasal congestion) Rx Instructions: administer into each nostril prednisone 20 mg tablet 20 mg PO .QD metoprolol succinate 25 mg tablet extended release 24 hr 25 mg PO .QD benzonatate 200 mg capsule 200 mg PO DAILY PRN (Reason: cough) meclizine 25 mg tablet 25 mg PO TID Qty: 20 0RF Print Language: Turkish Forms: Portal Instructions Follow Up Appointments: Keep previously scheduled appt. with Dr. Feliciano on . November 07 November 08 @ 1:40pm with Brandi Alvarado NP [phone]
--- OUTSIDE RECORDS SUMMARY | 2024-11-03 09:11 | XMS_ITS | Encounter Summary ---
Author Organization [facility] Address [address] [place] [address] Care Team Providers Care Digital Court Reporter Name Role Phone LawDoug caalVamsi Primary Care Provider [phone] Brandi Alvarado APRN.[facility] Primary Care Provider [phone] Source Comments In the event this information is protected by the Federal Confidentiality of Alcohol and Drug AbusePatient Records regulations: The Federal rules restrict any use of the information to criminally investigate or prosecute any alcohol or drug abuse patient.[facility] Reason for Visit * Reason Comments Results Dept. of Neurology R eport Encounter Details Date Type Department Care Team (Late st Contact Info) Description 03/25/2006 Abstract Neurology [address] [place] [address] Laiht Norton MD [address] [place] [address] Results (Dept. of Neurology Report) [...] 8:30 AM EDT Visit (SP) Office Hematology/Oncology [address] [place] [address] [place] [address] Kvng Perez MD [address] [place] [address] [place] [address] 2 week follow up 11/10/2024 9:00 AM EDT Office Visit Radiation Oncology [address] [place] [address] [place] [address] Ezra Moreno MD [address] [place] [address] [place] [address] Consult dx Lung cancer 11/15/2024 11:00 AM EDT Office Visit Pulmonary Medicine [address] [address] Alexandre Robertson MD [address] [place] [address] New Consultation 11/15/2024 12:10 PM EDT Procedure Cardiology [address] [address] PreOp Testing 11/20/2024 11:30 AM EDT Hospital Encounter Admitting [address] [address] Alexandre Robertson MD [address] [place] [address] 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] 11/20/2024 11:30 AM EDT - 11/20/2024 1:30 PM EDT Surgery Admitting [address] [address] Alexandre Robertson MD [address] [place] [address] BRONCHOSCOPY FLEXIBLE ADULT 11/30/2024 3:30 PM EDT [facility] Nutrition Therapy [address] [place] [address] Jesusita Pabon, JAMIL [address] [place] [address] Follow up lung/ severe weight loss Scheduled Procedures Name Priority Associated Diagnoses Date/Ti me BRONCHOSCOPY FLEXIBLE ADULT Bronchiolar disease 11/20/2024 11:30 AM EDT documented as of this encounter Visit Diagnoses Not on filedocumented in this encounter Care Teams Digital Court Reporter Relationship Specialty Start Date End Date Doug Bowles PCP - General 02/23/06 10/26/24 Brandi Alvarado, OCEANOGRAPHY PROFESSOR.NEEDLEWORKER [address] [place] [address] PCP - General Nurse Practitioner 10/27/24 documented as of this encounter
--- OUTSIDE RECORDS SUMMARY | 2024-11-03 09:11 | XMS_ITS | Clinical Summary ---
Author Organization [facility] Address [id number] [address] [place] [address] Care Team Providers Care Edge Inker Heels Name Role Phone Alina Ragland MD Primary Care Provider [phone] Allergies Active Allergy Reactions Criticality Noted Date Comments Sulfamethoxazole-Trimethoprim 2016 Medications varenicline (CHANTIX CONTINUING MONTH BOX) 1 mg tablet Take 1 tablet (1 mg total) by mouth 2 (two) times a day. Take with full glass of water. 56 tablet 3 03/31/2017 Active PEPSIN/GA/OXBI LE/PANCREAT/BET (TEOMGX-NTE-PY ZLEM-KQU-VVX-PA P ORAL) Take by mouth. Active ibuprofen [...] Cardiology [address] [place] [address] Maritza Best MD [address] [place] [address] Health Maintenance Due Date Last Done Comments Depression Screening 1973 Tobacco Screening 1973 Adult BMI Screening 11/03/1979 DTaP,Tdap and Td Vaccines (1 - Tdap) 1980 Zoster (Shingles) Vaccine (1 of 2) 11/03/2011 Influenza Vaccine 02/12/2025 Medical Devices Not on file Insurance [employer] Care Teams Edge Inker Heels Relationship Specialty Start Date End Date Alina Ragland MD [address] [place] [phone] PCP - General Family Medicine 09/30/20
--- OUTSIDE RECORDS SUMMARY | 2024-11-03 09:11 | XMS_ITS | Encounter Summary ---
Author Organization [facility] Address [facility] [place] [address] Care Team Providers Care Brake Coupler Dinkey Name Role Phone Jenny Brandi Fowler APRN.[facility] Primary Care Provider [phone] Source Comments In the event this information is protected by the Federal Confidentiality of Alcohol and Drug AbusePatient Records regulations: The Federal rules restrict any use of the information to criminally investigate or prosecute any alcohol or drug abuse patient.[facility] Reason for Visit * Reason Comments Bronchoscopy Referral Encounter Details Date Type Department Care Team (Late st Contact Info) Description 10/27/2024 Telephone Pulmonary Medicine [address] [place] [address] Janell An Bronchoscopy Referral Social History Tobacco [...] is lower risk 9 10/27/2024 Data from: https://www.neighborhoodatlas.medicine.[facility].edu/. Last address used for calculation [...] EDT Referring Physician: Dr. Kvng Perez Address: [facility] Mae Phone #: [phone] Fax #: [phone] Reason for referral: Malignant neoplasm of lower lobe of right lung Is there CareEverywhere Records: Yes Is there Imaging available: Yes - Recent CT: Yes - Date of CT: 10/18/2024 documented in this encounter Plan of Treatment Upcoming Encounters Date Type Department Care Team (Latest Contact Info) Description 11/10/2024 8:30 AM EDT Visit (SP) Office Hematology/Oncology [address] [place] [address] [place] [address] Kvng Perez MD [address] [place] [address] [place] [address] 2 week follow up 11/10/2024 9:00 AM EDT Office Visit Radiation Oncology [address] [place] [address] [place] [address] Ezra Moreno MD [address] [place] [address] [place] [address] Consult dx Lung cancer 11/15/2024 11:00 AM EDT Office Visit Pulmonary Medicine [address] [place] [address] Alexandre Robertson MD [address] [place] [address] New Consultation 11/15/2024 12:10 PM EDT Procedure Cardiology [address] [address] PreOp Testing 11/20/2024 11:30 AM EDT Hospital Encounter Admitting [address] [address] Alexandre Robertson MD [address] [place] [address] 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] 11/20/2024 11:30 AM EDT - 11/20/2024 1:30 PM EDT Surgery Admitting [address] [address] Alexandre Robertson MD [address] [place] [address] BRONCHOSCOPY FLEXIBLE ADULT 11/30/2024 3:30 PM EDT [facility] Nutrition Therapy [address] [place] [address] Bee Pabon, JAMIL [address] [place] [address] Follow up lung/ severe weight loss Scheduled Procedures Name Priority Associated Diagnoses Date/Ti me BRONCHOSCOPY FLEXIBLE ADULT Bronchiolar disease 11/20/2024 11:30 AM EDT documented as of this encounter Visit Diagnoses Not on filedocumented in this encounter Care Teams Brake Coupler Dinkey Relationship Specialty Start Date End Date Brandi Alvarado, SCOOP FILLER.UPTWISTER TENDER [address] [place] [id number] PCP - General Nurse Practitioner 10/27/24 documented as of this encounter
--- OUTSIDE RECORDS SUMMARY | 2024-11-03 09:11 | XMS_ITS | Encounter Summary ---
Author Organization [facility] Address [address] [place], [place] [id number] Care Team Providers Care Therapeutic Sales Specialist Name Role Phone Doug Bowles Primary Care Provider Source Comments In the event this information is protected by the Federal Confidentiality of Alcohol and Drug AbusePatient Records regulations: The Federal rules restrict any use of the information to criminally investigate or prosecute any alcohol or drug abuse patient.[facility] Encounter Details Date Type Department Care Team (Late st Contact Info) Description 10/25/2024 Abstract Hematology/Oncology [address] [place] [address] Kvng Perez MD [address] [place] [address] Social History Tobacco Use Types Packs/Day Years [...] 8:30 AM EDT Visit (SP) Office Hematology/Oncology [address] [place] [address] [place] [address] Kvng Perez MD [address] [place] [address] [place] [address] 2 week follow up 11/10/2024 9:00 AM EDT Office Visit Radiation Oncology [address] [facility] [address] Ezra Moreno MD [address] [place] [address] [place] [address] Consult dx Lung cancer 11/15/2024 11:00 AM EDT Office Visit Pulmonary Medicine [address] [address] Alexandre Robertson MD [address] [place], [place] [id number] New Consultation 11/15/2024 12:10 PM EDT Procedure Cardiology [address] [address] PreOp Testing 11/20/2024 11:30 AM EDT Hospital Encounter Admitting [address] [address] Alexandre Robertson MD [address] [place], [place] [id number] 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] 11/20/2024 11:30 AM EDT - 11/20/2024 1:30 PM EDT Surgery Admitting [address] [address] Alexandre Robertson MD [address] [place], [place] [id number] BRONCHOSCOPY FLEXIBLE ADULT 11/30/2024 3:30 PM EDT [facility] Nutrition Therapy [address] [place] [address] Jesusita Pabon, RD [address] [place] [address] Follow up lung/ severe weight loss Scheduled Procedures Name Priority Associated Diagnoses Date/Ti me BRONCHOSCOPY FLEXIBLE ADULT Bronchiolar disease 11/20/2024 11:30 AM EDT documented as of this encounter Visit Diagnoses Not on filedocumented in this encounter Care Teams Therapeutic Sales Specialist Relationship Specialty Start Date End Date Doug Bowles PCP - General 02/23/06 10/26/24 documented as of this encounter
--- OUTSIDE RECORDS SUMMARY | 2024-11-03 09:12 | XMS_ITS | Clinical Summary ---
Author Organization [facility] Address [address] [place] [address] Care Team Providers Care Promotional Demonstrator Name Role Phone Unavailable Primary Care Provider Unavailabl e Encounters Date Type Department Care Team Description 10/09/2024 Results Follow-Up [facility] [address] [place] [id number] Marvel Shields PA 10/07/2024 Clinisync Result Encounter [...] ORDERABLES Final Re sult Performing Organization Address [facility] de Phone Number [facility] TB * BLOOD CULTURE 2 [...] ANTONIISYNC [facility] from Last 3 Months Insurance [facility]
--- OUTSIDE RECORDS SUMMARY | 2024-11-03 09:12 | XMS_ITS | Patient Health Record ---
Author Organization [facility] in [place] Address [address] [place] [address] Care Team Providers Care Humid System Operator Name Role Phone Brandi Fiore Primary Care Provider Unavail able José Luis Ragland Unavailable [phone] Chip Carbajal Unavailable [phone] Allergies Allergen (clinical drug ingredient) Drug/Non Drug Allergy documented on EMR Reaction Allergy Type Onset Date Status sulfamethoxazole / trimethoprim Bactrim fluid retention Drug Allergy Active codeine Codeine sweating Drug Allergy Active Results Component Value Reference Range Notes CT Chest w/o contrast Reviewed date:10/09/2024 09:52:28 AM Interpretation: Performing Lab: Notes/Report: ECG 12 lead Reviewed date:10/16/2024 09:53:23 AM Interpretation: Performing Lab: Notes/Report: Source Facility: [place] [address] [place] [address] Electrocardiograph Report Signed Patient: FRANTZ ROA II MR#: [id number] : 1960 Acct:[id number] Age/Sex: 63 / M ADM Date: 10/12/24 Loc: PST Attending Dr: Chip Carbajal D.O. Ordering Physician: Chip Carbajal D.O. Date of Service: 10/12/24 Procedure(s): ECG 12 lead Accession Number(s): [id number] cc: [facility] Test Date: 2024-10-12 Pat Name: FRANTZ AMYWALE Department: Room: - Gender: Male Health Promotion Manager: : 1960 Requested By: Chip Carbajal Order Number: [id number] Reading MD: AGATHA SALAZAR M.D. Measurements Intervals [place] Rate: 93 P: 32 [place]: 168 QRS: 33 QRSD: 133 T: 5 QT: 359 QTc: 447 Interpretive Statements SINUS RHYTHM RIGHT BUNDLE BRANCH BLOCK [120+ ms QRS DURATION, UPRIGHT V1, 40+ ms S IN I/aVL/V4/V5/V6] Abnormal ECG Compared to ECG 10/06/2024 19:04:05 Ectopic atrial tachycardia, unifocal no longer present Electronically Signed On 10-12-2024 23:28:47 EDT by AGATHA SALAZAR M.D. Dictated By: AGATHA SALAZAR Signed By: 10/12/24 2329 DD/ 1257 TD/TT: Informatics Manager: [place] [address] Electrocardiograph Report Signed Patient: MICHAEL ROA COTY MR#: [id number] : 1960 Acct:[id number] Age/Sex: 63 / M ADM Date: 10/12/24 Loc: [facility] Attending Dr: Chip Carbajal D.O. Ordering Physician: Chip Carbajal D.O. Date of Service: 10/12/24 Procedure(s): ECG 12 lead Accession Number(s): [id number] cc: [facility] Test Date: 2024-10-12 Pat Name: RFANTZ DAVILA Department: Room: - Gender: Male Health Promotion Manager: : 1960 Requ ested By: Chip Carbajal Order Number: [id number] Reading MD: AGATHA SALAZAR M.D. Measurements Intervals [place] Rate: 93 P: 32 [place]: 168 QRS: 33 QRSD: 133 T: 5 QT: 359 QTc: 447 Interpretive Statements SINUS RHYTHM RIGHT BUNDLE BRANCH BLOCK [120+ ms QRS DURATION, UPRIGHT V1, 40+ ms S IN I/aVL/V4/V5/V6] Abnormal ECG Compared to ECG /10/2024 19:04:05 Ectopic atrial tachy cardia, unifocal no longer present Electronically Bev d On 10-12-2024 23:28:47 EDT by AGATHA SALAZAR M.D. Dictated By: AGATHA SALAZAR Signed By: 10/12/24 2329 DD/ 1257 TD/TT: Informatics Manager: PET/CT Skull Base to Mid-Thi Reviewed date:10/23/2024 12:37:26 PM Interpretation: Performing Lab: Notes/Report: CT chest wo con Reviewed date:10/09/2024 06:58:44 AM Interpretation: Performing Lab: Notes/Report: Source Facility: [place] [address] CT Scan Report Signed Patient: FRANTZ ROA II MR#: [id number] : 1960 Acct:[id number] Age/Sex: 63 / M ADM Date: 10/06/24 Loc: CT Attending Dr: Chip Carbajal D.O. Ordering Physician: Chip Carbajal D.O. Date of Service: 10/06/24 Procedure(s): CT chest wo con Accession Number(s): [id number] cc: JOSÉ LUIS RAGLAND [place] [address] Patient Name: FRANTZ ROA MRN: [id number] date: 1960 Sex: M Assigned Patient Location: CT Current Patient Location: CT Accession/Order Number: [id number] Exam Date: 10/06/2024 10:28 Report Date: 10/06/2024 [...] Jr., D.O. 10/06/2024 10:33 AM Dictation Location: [place] [address] Electronically authenticated by: [id number] Y Date: 10/06/2024 10:33 Dictated By: Neftali Lewis M.D. Signed By: 10/06/24 1035 DD/ 1033 TD/TT: Informatics Manager: [place] [address] CT Scan Report Signed Patient: MICHAEL ROA MUNA Suly II MR#: [id number] : 1960 Acct:[id number] Age/Sex: 63 / M ADM Date: 10/06/24 Loc: CT Attending Dr: Chip Carbajal D.O. Ordering Physician: Chip Carbajal D.O. Date of Service: 10/06/24 Procedure(s): CT chest wo con Accession Number(s): [id number] cc: JOSÉ LUIS RAGLAND [place] [id number] Patient Name: FRANTZ ROA MRN: [id number] date: 1960 Sex: M Assigned Patient Location: CT Current Patient Location: CT Accession/Order Numb er: [id number] Exam Date: 10/06/2024 10:28 Report Date: 10/06/2024 10:33 At the request of: CHIP JIMYSA VALDES Procedure: CT chest wo con CT CHEST [...] suspected. Impression dictated by: Neftali Lewis Jr., DRockyORocky 10/06/2024 10:33 AM Dictation Location: [place] [address] Electronically authe nticated by: [id number] Y Date: 10/06/2024 10:33 Dictated By: Neftali Michael i, M.D. Signed By: 10/06/24 1035 DD/ 1033 TD/TT: Informatics Manager: XR chest 2V Reviewed date:07/27/2024 09:45:36 AM Interpretation: Performing Lab: Notes/Report: Source Facility: [place] [address] [place] [address] XRay Report Signed Patient: FRANTZ ROA II MR#: [id number] : 1960 Acct:[id number] Age/Sex: 63 / M ADM Date: 06/22/24 Loc: RAD Attending Dr: JOSÉ LUIS RAGLAND Ordering Physician: JOSÉ LUIS RAGLAND Date of Service: 06/22/24 Procedure(s): XR chest 2V Accession Number(s): [id number] cc: JOSÉ LUIS RAGLAND [place] [address] Patient Name: FRANTZ ROA MRN: [id number] date: 1960 Sex: M Assigned Patient Location: [facility] Current Patient Location: [facility] Accession/Order Number: [id number] Exam Date: 06/22/2024 11:05 Report Date: 06/22/2024 [...] Signed By: 06/22/24 1250 DD/ 1248 TD/TT: Informatics Manager: [address] [address] XRay Report Signed Patient: MICHAEL ROA II MR#: [id number] : 1960 Acct:[id number] Age/Sex: 63 / M ADM Date: 06/22/24 Loc: RAD Attending Dr: JOSÉ LUIS RAGLAND Ordering Physician: JOSÉ LUIS RAGLAND Date of Service: 06/22/24 Procedure(s): XR chest 2V Accession Number(s): [id number] cc: JOSÉ LUIS RAGLAND [address] [address] Patient Name: FRANTZ ROA MRN: [id number] date: 1960 Sex: M Assigned Patient Location: [facility] Current Patient Location: [facility] Accession/Order Numb er: [id number] Exam Date: 06/22/2024 11:05 Report Date: 06/22/2024 [...] Signed By: 06/22/24 1250 DD/ 1248 TD/TT: Informatics Manager: Reason For Referral Reason 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 Diagnosis 1 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) Referral Organization [facility] Referring Provider First Name Chip Referring Provider Last Name Jimy Referring Provider Speciality Pulmonolog y Referred Provider Gaetano Nathan Referred Provider Specialty Hematology/O ncology General Notes Stanford Chan 10/23 02:43:00 PM >Images pushed to [facility] via PACS., Stanford Chan 10/23/2024 04:29:01 PM >Referral faxed to [facility] Oncology., Stanford Chan 10/24/2024 01:11:14 PM >I called and spoke with Benita at [facility] Oncology to find out if the referral [...] Administration Date Status Comme nts Flu, Flublok (57168) 18 yrs and older, single-dose syringe Unknown 03/31/2024 Administered Flu, Flublok (21548) 18yr+, single-dose (5020-4319) Unknown 03/16/2022 Administered Flu, Flublok (03601) 18yr+, single-dose (2481-3074) Unknown 04/21/2023 Administered Flu, Flucelvax (54812) 4 yrs and older, multi-dose vial (1219-0172) IM Intramuscular 04/02/2020 Administered Flu, Fluzone (94332) 6-35mo, multi-dose vial (1887-4867) Unknown 03/14/2017 Administered Flu, unspecified Unknown 04/07/2021 [...] Problem Status W/U Status Risk Notes Problem 182766402 Sleep disorder, unspecified (G47.9) Active confirmed Problem 83149623 Other chronic pain (G89.29) Active confirmed Problem 22944922 Essential hypertension (I10) Active confirmed Problem 657477881 BMI 33.0-33.9,adult (Z68.33) Active confirmed Problem Ex-tobacco user (finding) (291739913) History of tobacco abuse (Z87.891) Active confirmed Problem History of influenza (024029234) History of influenza (Z87.09) Active confirmed Problem 340598725 Acute gout of left foot, unspecified cause (M10.9) Active confirmed Problem 019211299 Chronic gout without tophus, unspecified cause, unspecified site (M1A.9XX0) Active confirmed Problem 41598730 Kidney stone on right side (N20.0) Active confirmed Problem Primary malignant neoplasm of lung (61008774) 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) Active confirmed Problem History of COVID-19 (9392179724858 52420) History of COVID-19 (Z86.16) Active confirmed Vital [...] N/A Encounters Encounter Location Date Provider Diagnosis [place] [address] [place] [address] 11/12/2023 José Luis Ragland Other chronic pain G89.29 ; Essential hypertension I10 and Sleep disorder, unspecified G47.9 [facility] [address] [place] [address] 02/17/2024 José Luis Ragland Other chronic pain G89.29 ; Essential hypertension I10 and Sleep disorder, unspecified G47.9 [facility] [address] [place] [address] 07/25/2024 José Luis Ragland Chronic cough R05.3 ; Essential hypertension I10 and Sleep disorder, unspecified G47.9 [facility] [address] [place] [address] 09/25/2024 [facility] Chronic cough R05.3 ; History of tobacco abuse Z87.891 ; History of COVID-19 Z86.16 and History of influenza Z87.09 [facility] [address] [place] [address] 10/09/2024 [facility] Chronic cough R05.3 ; Right lower lobe lung mass R91.8 ; History of tobacco abuse Z87.891 ; History of COVID-19 Z86.16 and History of influenza Z87.09 [facility] [address] [place] [address] 10/23/2024 [facility] Squamous cell carcinoma of bronchus of right lung C34.91 ; Pneumonitis due to inhalation of food and vomit J69.0 and History of tobacco abuse Z87.891 [facility] [address] [place] [address] 10/16/2024 [facility] [address] [place] [address] 06/21/2024 José Luis Ragland Screening for colon cancer Z12.11 ; Encounter for general adult medical examination without abnormal findings Z00.00 ; Chronic cough R05.3 ; Essential hypertension I10 and Sleep disorder, unspecified G47.9 [facility] [address] [place] [address] 01/18/2024 José Luis Ragland Other chronic pain G89.29 [facility] [address] [place] [address] 09/13/2024 José Luis Ragland [facility] [address] [place] [address] 09/21/2024 [facility] [address] [place] [address] 10/09/2024 [facility]monary [facility] [address] [place] [address] 10/11/2024 [facility] [address] [place] [address] 10/17/2024 [facility] [address] [place] [address] 10/23/2024 [facility] Assessments Encounter Date Diagnosis (ICD Code) Assessment [...] of the metoprolol ER 50mg daily to [facility] 07/25/2024 Chronic cough (ICD-10 - R05.3) CXR [...] will see if an internal referral to [facility] interventional pulmonology can be made. If not, I can place one. He continues to lose weight. He was 201.8# on 10/09/2024 - today (10/23/2024), he is 193.6#. There is significant mediastinal lymphadenopathy which appears to be compressing the mid-esophagus, leading to esophgaela dysphagia, limiting further his caloric intake. Discussed healthy diet, consider Ensure or Boost. He will benefit from a cosmetic sales/dietic satish with oncological treatment. Will have him [...] Name:Chip Carbajal, 11/07/2024 01:00:00 PM, [address] [place], [address], Insurance Providers Payer Name Payer Address Payer Phone Subscriber Number Group Number Insured Name Patient Relationship to Insured Coverage Start Date Coverage End Date [employer] ACCESS PPO PLUS LOCAL PLAN [address] [place] [address] [phone] [id number] Frantz Roa Self - patient is the [...]
--- OUTSIDE RECORDS SUMMARY | 2024-11-03 09:12 | XMS_ITS | Encounter Summary ---
Author Organization [facility] Address [address] [place] [address] Care Team Providers Care Social Studies Department Chair Name Role Phone Jenny Brandi Fowler APRN.[facility] Primary Care Provider [phone] Source Comments In the event this information [...] Contact Info) Description 11/01/2024 Telephone HOSP MAIN G068 [address] [place] [address] Appointment (PreOp [...] is lower risk 9 10/27/2024 Data from: https://www.neighborhoodatlas.medicine.[facility].edu/. Last address used for calculation [address] [...] 8:30 AM EDT Visit (SP) Office Hematology/Oncology [address] [place] [address] [place] [address] Kvng Perez MD [address] [place] [address] 2 week follow up 11/10/2024 9:00 AM EDT Office Visit Radiation Oncology [address] [place] [address] Ezra Moreno MD [address] [place] [address] Consult dx Lung cancer 11/15/2024 11:00 AM EDT Office Visit Pulmonary Medicine [address] [address] Alexandre Robertson MD [address] [place] [address] New Consultation 11/15/2024 12:10 PM EDT Procedure Cardiology [address] [address] PreOp Testing 11/20/2024 11:30 AM EDT Hospital Encounter Admitting [address] [address] Alexandre Robertson MD [address] [place] [address] 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] 11/20/2024 11:30 AM EDT - 11/20/2024 1:30 PM EDT Surgery Admitting [address] [address] Alexandre Robertson MD [address] [place] [address] BRONCHOSCOPY FLEXIBLE ADULT 11/30/2024 3:30 PM EDT [facility] Nutrition Therapy [address] [place] [address] [place] [address], [address] [place] [address] Follow up lung/ severe weight loss Scheduled Procedures Name Priority Associated Diagnoses Date/Ti me BRONCHOSCOPY FLEXIBLE ADULT Bronchiolar disease 11/20/2024 11:30 AM EDT documented as of this encounter Visit Diagnoses Not on filedocumented in this encounter Care Teams Social Studies Department Chair Relationship Specialty Start Date End Date Brandi Alvarado, DIRECTOR [employer] SALES.TIMEKEEPER [address] [place] [address] PCP - General Nurse Practitioner 10/27/24 documented as of this encounter
--- OUTSIDE RECORDS SUMMARY | 2024-11-03 09:12 | XMS_ITS | Clinical Summary ---
Author Organization [facility] Address [address] [place], [place] [address] Care Team Providers Care 911 Dispatcher Name Role Phone Brandi Alvarado APRN.CNP Primary Care Provider [phone] Allergies Active Allergy Reactions Criticality Noted Date [...] Department Care Team Description 11/01/2024 Telephone Hematology/Oncology [address] [place] [address] [place] [address] Brittany Marie, RN Patient Update; Appointment 11/01/[address] Appointment (PreOp Bronch) 10/31/2024 Patient Update Pulmonary Medicine [address] [place], [place] [address] Maryuri Carrasquillo MD Bronchoscopy Scheduling- cleared (Initial Bronch Request ) 10/30/2024 2:30 PM EDT Education Nutrition Therapy [address] [place] [address] [address] Nutrition Telephone 10/27/2024 9:00 AM EDT Visit (SP) Office Hematology/Oncology [address] [place] [address] [place] [address] Kvng Perez MD Malignant neoplasm of lower lobe of right lung (HCC) (Primary Dx) 10/27/2024 Telephone Pulmonary Medicine [address] [place] [id number] Janell An Bronchoscopy Referral 10/25/2024 Abstract Hematology/Oncology [address] [place] [place] [address] Kvng Perez MD from Last 3 Months [...] is lower risk 9 10/27/2024 Data from: https://www.neighborhoodatlas.medicine.[facility].edu/. Last address used for calculation [address] [...] Hematology/Oncology [address] [place] [place] [address] Kvng Perez MD [address] [place] [address] 2 week follow up 11/10/2024 9:00 AM EDT Office Visit Radiation Oncology [address] [place] [place] [address] Ezra Moreno MD [address] [place] [place] [address] Consult dx Lung cancer 11/15/2024 11:00 AM EDT Office Visit Pulmonary Medicine [address] [address] Alexandre Robertson MD [address] [place] [address] New Consultation 11/15/2024 12:10 PM EDT Procedure Cardiology [address] [address] PreOp Testing 11/20/2024 11:30 AM EDT Hospital Encounter Admitting [address] [address] Alexandre Robertson MD [address] [place] [address] 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] 11/20/2024 11:30 AM EDT - 11/20/2024 1:30 PM EDT Surgery Admitting [address] [address] Alexandre Robertson MD [address] [place] [address] BRONCHOSCOPY FLEXIBLE ADULT 11/30/2024 3:30 PM EDT [place] Nutrition Therapy [address] [place] [address] Bee Pabon, JAMIL [address] [place] [address] Follow up lung/ severe weight loss Scheduled [...] PM EDT Images were obtained outside of [facility] Procedure Note Provider, [facility] [place] - 10/23/2024 Images were obtained outside of [facility] us [facility] Provider RADIOLOGY Final Result * OT-CT ANGIO CHEST IMPORT (10/06/2024) Anatomical Region Laterality Modality Other 10/06/2024 Narrative 10/23/2024 6:25 PM EDT Images were obtained outside of [facility] Procedure Note Provider, [facility] [place] - 10/23/2024 Images were obtained outside of [facility] Provider RADIOLOGY Final Result * CT-CT CHEST WO CON IMPORT (10/06/2024) Anatomical Region Laterality Modality Other 10/06/2024 Narrative 10/23/2024 2:57 PM EDT Images were obtained outside of [facility] Procedure Note Provider, [facility] [place] - 10/23/2024 Images were obtained outside of [facility] Provider RADIOLOGY Final Result from Last 3 Months Insurance BLUE CARD PPO OOS Care Teams 911 Dispatcher Relationship Specialty Start Date End Date Brandi Alvarado, MEASUREMENT SUPERVISOR.FISH PROTECTOR [address] [place] [address] PCP - General Nurse Practitioner 10/27/24
--- OUTSIDE RECORDS SUMMARY | 2024-11-03 09:12 | XMS_ITS | Encounter Summary ---
Author Organization [facility] Address [address] [place] [address] Care Team Providers Care Hardware Assembler Name Role Phone Brandi Alvarado APRN.[facility] Primary Care Provider [phone] Source Comments In the event this information is protected by the Federal Confidentiality of Alcohol and Drug AbusePatient Records regulations: The Federal rules restrict any use of the information to criminally investigate or prosecute any alcohol or drug abuse patient.[facility] Reason for Referral * Outpatient Procedure (Urgent) - Pending Review Specialty Diagnoses / Procedures Referred By Contac t Referred To Contact [facility] [place] Diagnoses Pre-op testing Procedures ECG COMPLETE ECG ROUTINE ECG W/LEAST 12 LDS W/I&R Maryuri Carrasquillo MD [address] [place] [address] Phone: tel: fax: [facility] Vascular [address] [address] Referral ID Status Reason Start Date Expiration Date Visits Requested Visits Authorized [id number] Pending Review Auto-Generat ed Referral 10/31/2024 10/31/2025 1 1 Reason for Visit * Reason Onset Date Comments Bronchoscopy Scheduling- cleared 10/31/2024 Initial Bronch Request Encounter Details Date Type Department Care Team (Late st Contact Info) Description 10/31/2024 Patient Update Pulmonary Medicine [address] [address] Maryuri Carrasquillo MD [address] [place] [address] Bronchoscopy Scheduling- cleared (Initial Bronch Request ) [...] is lower risk 9 10/27/2024 Data from: https://www.neighborhoodatlas.medicine.[facility]/. 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 SqCell Carcinoma. T4N2M0 IIIB for now, starting chemorads Consultation request/referral by: Referring Physician: Dr. Kvng Perez Address: [address] [place] Phone #: [phone] Fax #: [phone] Reviewed by: MD Maryuri Aguilar MD October [...] 8:30 AM EDT Visit (SP) Office Hematology/Oncology [address] [place] [address] [place] [address] Kvng Perez MD [address] [place] [address] [place] [address] 2 week follow up 11/10/2024 9:00 AM EDT Office Visit Radiation Oncology [address] [place] [address] Ezra Moreno MD [address] [facility] [place] [address] Consult dx Lung cancer 11/15/2024 11:00 AM EDT Office Visit Pulmonary Medicine [address] [place] [address] Alexandre Robertson MD [address] [place] [address] New Consultation 11/15/2024 12:10 PM EDT Procedure Cardiology [address] [address] PreOp Testing 11/20/2024 11:30 AM EDT Hospital Encounter Admitting [address] [address] Alexandre Robertson MD [address] [place] [address] 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] 11/20/2024 11:30 AM EDT - 11/20/2024 1:30 PM EDT Surgery Admitting [address] [address] Alexandre Robertson MD [address] [place] [address] BRONCHOSCOPY FLEXIBLE ADULT 11/30/2024 3:30 PM EDT [facility] Nutrition Therapy [address] [place] [address] Bee Pabon, RD [address] [place] [address] Follow up lung/ severe weight loss Scheduled [...] bronchus documented in this encounter Care Teams Hardware Assembler Relationship Specialty Start Date End Date Brandi Alvarado, SPANISH TEACHER.MDS NURSE [address] [place] [address] PCP - General Nurse Practitioner 10/27/24 documented as of this encounter
--- OUTSIDE RECORDS SUMMARY | 2024-11-03 09:12 | XMS_ITS | Encounter Summary ---
Author Organization [facility] Address [address] [place] [id number] Care Team Providers Care Certified Activities Director Name Role Phone Jenny Brandi Fowler APRN.[facility] Primary Care Provider [phone] Source Comments In the event this information is protected by the Federal Confidentiality of Alcohol and Drug AbusePatient Records regulations: The Federal rules restrict any use of the information to criminally investigate or prosecute any alcohol or drug abuse patient.[facility] Reason for Visit * Reason Comments Patient Update Appointment Encounter Details Date Type Department Care Team (Late st Contact Info) Description 11/01/2024 Telephone Hematology/Oncology [address] [place] [address] [place] [address] Brittany Marie RN Patient Update; Appointment [...] EDT Pt reports pt is scheduled at [facility] for a second bronchoscopy 11/20/24 [...] 8:30 AM EDT Visit (SP) Office Hematology/Oncology [address] [place] [address] [place] [address] Kvng Perez MD [address] [place] [address] [place] [address] 2 week follow up 11/10/2024 9:00 AM EDT Office Visit Radiation Oncology [address] [place] [address] Ezra Moreno MD [address] [place] [address] Consult dx Lung cancer 11/15/2024 11:00 AM EDT Office Visit Pulmonary Medicine [address] [address] Alexandre Robertson MD [address] [place] [address] New Consultation 11/15/2024 12:10 PM EDT Procedure Cardiology [address] [address] PreOp Testing 11/20/2024 11:30 AM EDT Hospital Encounter Admitting [address] [address] Alexandre Robertson MD [address] [place] [address] 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] 11/20/2024 11:30 AM EDT - 11/20/2024 1:30 PM EDT Surgery Admitting [address] [address] Alexandre Robertson MD [address] [place], [place] [id number] BRONCHOSCOPY FLEXIBLE ADULT 11/30/2024 3:30 PM EDT [facility] Nutrition Therapy [address] [place] [address] Bee Pabon, RD [address] [place] [address] Follow up lung/ severe weight loss Scheduled Procedures Name Priority Associated Diagnoses Date/Ti me BRONCHOSCOPY FLEXIBLE ADULT Bronchiolar disease 11/20/2024 11:30 AM EDT documented as of this encounter Visit Diagnoses Not on filedocumented in this encounter Care Teams Certified Activities Director Relationship Specialty Start Date End Date Brandi Alvarado, PARAMEDICAL AIDE.LOGGING SPECIALIST [address] [place] [address] PCP - General Nurse Practitioner 10/27/24 documented as of this encounter
--- OUTSIDE RECORDS SUMMARY | 2024-11-03 09:12 | XMS_ITS | Encounter Summary ---
Author Organization [facility] Address [address] [place] [address] Care Team Providers Care Fine Arts Instructor Name Role Phone Unavailable Primary Care Provider Unavailabl e Encounter Details Date Type Department Care Team (Late st Contact Info) Description 10/09/2024 Results Follow-Up [facility] [address] [facility] [address] [place] [id number] Marvel Shields PA [address] [facility] [address] [place] [address] Social History Tobacco Use Types Packs/Day Years [...]
[2024-11-03] MEDS: METOPROLOL SUCCINATE 25 MG TAB.ER.24H PO (10:11)
[2024-11-03] MEDS: MELOXICAM 7.5 MG TABLET PO (10:11)
--- NOTE | 2024-11-07 16:23 | CM.DCFOLLOWU ---
1st attempt 11/07/24, no answer
== END 2024-11-03 15:41 | disposition home or self-care (01) ==
LOC: ER 11-03 01:55 → MS 11-03 08:58
PROVIDERS: Registered Nurse; Admitting Provider Family Medicine; Emergency Provider Emergency Medicine; PCP Nurse Practitioner; Visit Provider Family Medicine
DX: A41.9 Sepsis, unspecified organism (principal); J18.9 Pneumonia, unspecified organism; C34.90 Malignant neoplasm of unspecified part of unspecified bronchus or lung; R07.9 Chest pain, unspecified; R06.02 Shortness of breath; Z86.16 Personal history of COVID-19; Z87.891 Personal history of nicotine dependence; Z79.899 Other long term (current) drug therapy; R50.9 Fever, unspecified; R06.09 Other forms of dyspnea; G47.30 Sleep apnea, unspecified; I10 Essential (primary) hypertension; R06.03 Acute respiratory distress; D84.9 Immunodeficiency, unspecified; D50.9 Iron deficiency anemia, unspecified; R65.20 Severe sepsis without septic shock
CPT/HCPCS: 36415; 71045; 71275; 80053; 83605; 83735; 84484; 85007; 85025; 85027; 86140; 87040; 87070; 87205; 93005; 94667; 94761; 96365; 96366; 96375; 96376; 99285; G0378; J1885; J2543; J2919; Q9967

== ENCOUNTER 2024-11-03 21:03 | Inpatient (IN) | payer BC, SELFPAY ==
--- OUTSIDE RECORDS SUMMARY | 2024-11-02 11:40 | XMS_ITS ---
Author Name Auto Generated Organization OHIP Care Team Providers Care Leaf Stripper Name Role Phone Chip Carbajal P Admitting Unavailable Samsa, Chip P Attending Unavailable De Oliveira, Tonja L Attending Unavailable Alina Ragland Primary Care Unavailable De Oliveira, Tonja L Admitting Unavailable DENNIS, BRANDI L Primary Care Unavailable QUINTONBEE Flores Attending Unavailable VENNEPUREDANNALISE, RASHEED Attending Unavailable SAMSA, CHIP P Referring Unavailable DENNIS, BRANDI L Primary Care Unavailable SAMSA, CHIP P Referring Unavailable SAMSA, CHIP P Attending Unavailable Dennis, CONE BAKER MACHINE Brandi L Attending Unavailable Dennis, CONE BAKER MACHINE Brandi L Attending Unavailable PROBLEMS DATE TYPE CONDITION / CODE [facility] Malignant neopla sm of lower lobe of right lung (HCC) / C34.31(ICD-10) BEE PABON Active [facility] PROCEDURES No Procedure Records Found RESULTS CNPN Observed: 11/01/2024 12:00 AM Status: COMPLETED Source: [facility] Telephone (HEMASA) FRANTZ ROA ([id number]) 1960 M Date Time Provider Department 11/01/24 BRITTANY MARIE During your visit today, we recorded the following information about you: Brittany Marie RN 11/01/2024 3:30 PM Addendum Pt reports pt is scheduled at [facility] for a second bronchoscopy 11/20/24 to clear an obtruction that allow him to breath out, but not inhale adequately. Pt is scheduled for Brain MRI tomorrow AV/RYAN: she is asking if they should keeps appts, as previously scheduled 11/10, or reschedule following the second bronch to alleviate the obstruction? PRITI Dempsey Adarsh, MD 11/01/2024 3:32 PM Signed Keep the appts as scheduled. Brittany Pike RN 11/01/2024 3:37 PM Signed notified and agreeable to appts, as previously scheduled. Brittany Marie RN Allergies As of Date: 11/01/2024 Noted Allergy Reaction SULFAMETHOXAZOLE 10/25/2024 14 - Other: See Comments 16 - Unknown SULFAMETHOXAZOLE-TRIMETHOPRIM 12/17/2016 14 - Other: See Comments CODEINE 10/25/2024 14 - Other: See Comments Date Reviewed: 10/27/2024 Reviewed by: Mamie Meier MA - Fully Assessed Reason for Visit: Patient Update [1234] Appointment [186] Prescriptions as of 11/01/2024 - fluticasone propionate (FLONASE NASAL) Use in the nose once daily. - amoxicillin-clavulanate potassium (AUGMENTIN) 875-125 mg per tablet Take 1 tablet by mouth every 12 hours. - Acetaminophen 500 mg cap Take 500 mg by mouth once daily. Takes aout 6 a day - diphenhydramine HCl (ALLERGY MEDICATION ORAL) Take by mouth once daily. - MEN'S MULTI-VITAMIN ORAL Take by mouth once daily. - albuterol HFA (PROVENTIL HFA, VENTOLIN HFA) 90 mcg/actuation inhaler INHALE 1 PUFF INTO THE LUNGS EVERY 4 HOURS NEEDED - Benzonatate 200 mg capsule - cyclobenzaprine (FLEXERIL) 10 mg tablet Take 10 mg by mouth at bedtime as needed. - ibuprofen (MOTRIN) 200 mg tablet Take 200 mg by mouth every 6 hours as needed. - meloxicam (MOBIC) 7.5 mg tablet Take 7.5 mg by mouth once daily. - metoprolol succinate ER (TOPROL XL) 25 mg 24 hr tablet Take 25 mg by mouth. - predniSONE (DELTASONE) 20 mg tablet - tamsulosin (FLOMAX) 0.4 mg Take 0.4 mg by mouth. Problem List As Of Date 11/01/2024 Noted Resolved CALCIF TENDINITIS SHLDER [M75.30] 03/25/2006 ROTATOR CUFF SYND NOS [M71.9, M67.919] 03/25/2006 ULNAR NERVE LESION [G56.20] 03/25/2006 CARPAL TUNNEL SYNDROME [G56.00] 03/25/2006 Encounter Status:Closed by BRITTANY MARIE on 11/01/24 CNPN Observed: 11/01/2024 12:00 AM Status: COMPLETED Source: [facility] Telephone ([id number]) FRANTZ ROA ([id number]) 1960 Date Time Provider Department 11/01/24 ROBERT NOLASCO [id number] During your visit today, we recorded the following information about you: Allergies As of Date: 11/01/2024 Noted Allergy Reaction SULFAMETHOXAZOLE 10/25/2024 14 - Other: See Comments 16 - Unknown SULFAMETHOXAZOLE-TRIMETHOPRIM 12/17/2016 14 - Other: See Comments CODEINE 10/25/2024 14 - Other: See Comments Date Reviewed: 10/27/2024 Reviewed by: Mamie Meier MA - Fully Assessed Reason for Visit: Appointment [186] Cmt: PreOp Bronch Prescriptions as of 11/01/2024 - fluticasone propionate (FLONASE NASAL) Use in the nose once daily. - amoxicillin-clavulanate potassium (AUGMENTIN) 875-125 mg per tablet Take 1 tablet by mouth every 12 hours. - Acetaminophen 500 mg cap Take 500 mg by mouth once daily. Takes aout 6 a day - diphenhydramine HCl (ALLERGY MEDICATION ORAL) Take by mouth once daily. - MEN'S MULTI-VITAMIN ORAL Take by mouth once daily. - albuterol HFA (PROVENTIL HFA, VENTOLIN HFA) 90 mcg/actuation inhaler INHALE 1 PUFF INTO THE LUNGS EVERY 4 HOURS NEEDED - Benzonatate 200 mg capsule - cyclobenzaprine (FLEXERIL) 10 mg tablet Take 10 mg by mouth at bedtime as needed. - ibuprofen (MOTRIN) 200 mg tablet Take 200 mg by mouth every 6 hours as needed. - meloxicam (MOBIC) 7.5 mg tablet Take 7.5 mg by mouth once daily. - metoprolol succinate ER (TOPROL XL) 25 mg 24 hr tablet Take 25 mg by mouth. - predniSONE (DELTASONE) 20 mg tablet - tamsulosin (FLOMAX) 0.4 mg Take 0.4 mg by mouth. Problem List As Of Date 11/01/2024 Noted Resolved CALCIF TENDINITIS SHLDER [M75.30] 03/25/2006 ROTATOR CUFF SYND NOS [M71.9, M67.919] 03/25/2006 ULNAR NERVE LESION [G56.20] 03/25/2006 CARPAL TUNNEL SYNDROME [G56.00] 03/25/2006 Encounter Status:Closed by ROBERT CANELA on 11/01/24 PROGRESS Observed: 10/31/2024 4:33 PM Status: COMPLETED [id number] Author: DENNIS HERNÁNDEZ RN Service: ? Author Type: Physician Type: Progress Notes Filed: 11/01/2024 09:09 Note Text: Bronchoscopy Request: cleared for scheduling November 01, [...] on anticoagulants/anti-plt therapy?: No Nursing Considerations: (ie: prison, TB, respiratory isolation, clinical trial, Specific protocol etc.) none Additional notes to the bilingual operator: OSH Bronchoscopy showed an mass obstructing BI, patient requested IP evaluation. SqCell Carcinoma. T4N2M0 IIIB for now, starting chemorads Consultation request/referral by: Referring Physician: Dr. Rasheed Perez Address: [facility] Mae Phone #: [phone] Fax #: [phone] Reviewed by: MD Maryuri Aguilar MD October 31, 2024 4:33 PM Addendum: CBC with diff: No results found for this basename: WBC,RBC,HB,HCT,MCV,MCH,MCHC,RDWCV,PLT,MPV,NEUTP,LYMPHP,MONOP,EODINP,BASOP,ABSNEU T,ABSLYM,ABSMONO,ABSEOSIN,ABSBASO No results found for: K No results found for: NA No results found for: BUN No results found for: CREAT PROGRESS Observed: 10/30/2024 2:39 PM Status: COMPLETED Source: [facility] HNO ID: [id number] Author: BEE PABON RD Service: ? Author Type: Registered Dietitian Type: Progress Notes Filed: 2024 14:55 Note Text: [facility] Nutrition Therapy: Virtual Consult - Initial Assessment I have communicated my name and active licensure. The patient?s identity and physical location were verified at the time of this visit. Either the patient or their legal field representative has been informed of the risks [...] Plus 2-3 times per day Nutrition Monitoring AND Evaluation: - PO Intake - Supplement Intake [...] October 30, 2024 TIME: 2:39 PM PAGER: CNCNPATED Observed: 10/30/2024 2:30 PM Status: COMPLETED Source: [facility] Education (NUTRMA) FRANTZ ROA ([id number]) 1960 M Date Time Provider Department 10/30/24 2:30 PM BEE PABON Reason for Visit: Nutrition Telephone [2013] Visit Diagnosis:Malignant neoplasm of lower lobe of right lung (HCC) [C34.31] Order(s):CONSULT TO ONCOLOGY NUTRITION [7463469] Order #: [id number]: 1 During your visit today, we recorded the following information about you: Allergies As of Date: 10/30/2024 Noted Allergy Reaction SULFAMETHOXAZOLE 10/25/2024 14 - Other: See Comments 16 - Unknown SULFAMETHOXAZOLE-TRIMETHOPRIM 12/17/2016 14 - Other: See Comments CODEINE 10/25/2024 14 - Other: See Comments Date Reviewed: 10/27/2024 Reviewed by: Mamie Meier MA - Fully Assessed Prescriptions as of 2024 - fluticasone propionate (FLONASE NASAL) Use in the nose once daily. - amoxicillin-clavulanate potassium (AUGMENTIN) 875-125 mg per tablet Take 1 tablet by mouth every 12 hours. - Acetaminophen 500 mg cap Take 500 mg by mouth once daily. Takes aout 6 a day - diphenhydramine HCl (ALLERGY MEDICATION ORAL) Take by mouth once daily. - MEN'S MULTI-VITAMIN ORAL Take by mouth once daily. - albuterol HFA (PROVENTIL HFA, VENTOLIN HFA) 90 mcg/actuation inhaler INHALE 1 PUFF INTO THE LUNGS EVERY 4 HOURS NEEDED - Benzonatate 200 mg capsule - cyclobenzaprine (FLEXERIL) 10 mg tablet Take 10 mg by mouth at bedtime as needed. - ibuprofen (MOTRIN) 200 mg tablet Take 200 mg by mouth every 6 hours as needed. - meloxicam (MOBIC) 7.5 mg tablet Take 7.5 mg by mouth once daily. - metoprolol succinate ER (TOPROL XL) 25 mg 24 hr tablet Take 25 mg by mouth. - predniSONE (DELTASONE) 20 mg tablet - tamsulosin (FLOMAX) 0.4 mg Take 0.4 mg by mouth. Encounter Status:Closed by BEE PABON on 11/02/24 PROGRESS Observed: 10/27/2024 9:00 AM Status: COMPLETED Source: [facility] HNO ID: [id number] Author: RASHEED PEREZ MD Service: ? Author Type: Physician Type: Progress Notes Filed: 10/27/2024 09:56 Note Text: PATIENT NAME: Frantz Roa II CLINIC NO.: [id number] ATTENDING PHYSICIAN: Rasheed Perez MD DATE OF SERVICE: October 27, [address] Chip Carbajal [address] [place] [id number] thank you for referring Frantz Roa II for an opinion regarding Lung cancer. CHIEF COMPLAINT: Lung cancer HPI: Frantz Roa II is a 63 year old year old male with PMH of HTN referred to us for lung cancer. CT chest : PET scan: C/o cough and lost 30lbs. Quit smoking in 2017. Smoked 1 pk/day for 40yrs. 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 C/o hemoptysis. C/o mild dysphagia. Current Outpatient Medications Medication Sig fluticasone propionate (FLONASE NASAL) Use in the nose once daily. amoxicillin-clavulanate potassium (AUGMENTIN) 875-125 mg per tablet Take 1 tablet by mouth every 12 hours. Acetaminophen 500 mg cap Take 500 mg [...] every 6 hours as needed. (Patient not taking: Reported on 10/27/2024) meloxicam (MOBIC) 7.5 mg tablet [...] EXAMINATION: BP 100/64 Pulse 95 Temp 36.5 ?C (97.7 ?F) (Temporal) Resp 16 Ht 169.5 cm (5' 6.73 ) Wt 86.7 kg (191 lb 2.2 oz) SpO2 96% BMI 30.18 kg/m? There were no vitals taken for this [...] will do concurrent chemoradiation therapy followed by maintenance durvalumab - Refer to interventional pulmonology as per the patient request and recommendation - Refer to nutrition - C/o cough, intermittent hempotysis, Hoarseness of voice and weight loss. - All his questions answered in detail. - F/u in [address] Chip Carbajal [address] [place] [address] thank you for allowing me to participate in Frantz Roa II care, if there are any questions or concerns please do not hesitate to contact me at the number below. I spent a total of 60 minutes on the date of the service which included preparing to see the patient, [id number] patient care, completing clinical documentation, obtaining and/or reviewing separately obtained history, performing a medically appropriate examination, counseling and educating the patient/family/caregiver, ordering medications, tests, or procedures, communicating with other HCPs (not separately reported), independently interpreting results (not separately reported), communicating results to the patient/family/caregiver, and care coordination (not separately reported). Rasheed Perez MD. Hematology/Medical Oncology [facility] Mae [phone] CC: [id number] Observed: 10/27/2024 9:00 AM Status: COMPLETED Source: [facility] Visit (SP) Office (HEMASA) FRANTZ ROA ([id number]) 1960 M Date Time Provider Department 10/27/24 9:00 AM RASHEED PEREZ During your visit today, we recorded the following information about you: Temperature Pulse Respiration Blood pressure 97.7 degrees 95/minute 16/minute 100/64 Weight Height 86.7 kg 1.695 m Mamie Meier MA 10/27/2024 9:56 AM Signed Poatient has an irritating cough but has not coughed up blood since Wednesday, Low grade started Wednesday 102.2 chills on Wednesday (he does not take temp). He has been taking Tylenol to help minimize temps. LUDA Nicole Adarsh, MD 10/27/2024 9:56 AM Signed PATIENT NAME: Frantz Roa II CLINIC NO.: [id number] ATTENDING PHYSICIAN: Rasheed Perez MD DATE OF SERVICE: October 27, [address] Chip Carbajal [address] [place] [address] thank you for referring Frantz Roa II for an opinion regarding Lung cancer. CHIEF COMPLAINT: Lung cancer HPI: Frantz Roa II is a 63 year old year old male with PMH of HTN referred to us for lung cancer. CT chest : PET scan: C/o cough and lost 30lbs. Quit smoking in 2017. Smoked 1 pk/day for 40yrs. 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 C/o hemoptysis. C/o mild dysphagia. Current Outpatient Medications Medication Sig fluticasone propionate (FLONASE NASAL) Use in the nose once daily. amoxicillin-clavulanate potassium (AUGMENTIN) 875-125 mg per tablet Take 1 tablet by mouth every 12 hours. Acetaminophen 500 mg cap Take 500 mg [...] every 6 hours as needed. (Patient not taking: Reported on 10/27/2024) meloxicam (MOBIC) 7.5 mg tablet [...] EXAMINATION: BP 100/64 Pulse 95 Temp 36.5 ?C (97.7 ?F) (Temporal) Resp 16 Ht 169.5 cm (5' 6.73 ) Wt 86.7 kg (191 lb 2.2 oz) SpO2 96% BMI 30.18 kg/m? There were no vitals taken for this [...] will do concurrent chemoradiation therapy followed by maintenance durvalumab - Refer to interventional pulmonology as per the patient request and recommendation - Refer to nutrition - C/o cough, intermittent hempotysis, Hoarseness of voice and weight loss. - All his questions answered in detail. - F/u in [address] Chip Carbajal [address] [address] thank you for allowing me to participate in Frantz Roa II care, if there are any questions or concerns please do not hesitate to contact me at the number below. I spent a total of 60 minutes on the date of the service which included preparing to see the patient, [id number] patient care, completing clinical documentation, obtaining and/or reviewing separately obtained history, performing a medically appropriate examination, counseling and educating the patient/family/caregiver, ordering medications, tests, or procedures, communicating with other HCPs (not separately reported), independently interpreting results (not separately reported), communicating results to the patient/family/caregiver, and care coordination (not separately reported). Rasheed Perez MD. Hematology/Medical Oncology [facility] [place] [phone] CC: Rasheed Perez MD 10/27/2024 9:26 AM Signed Refer to radiation oncology Refer to interventional pulmonology Ordered MRI brain F/u in 2 weeks Rasheed Perez MD 10/27/2024 9:57 AM Signed Addended by: RASHEED PEREZ on: 10/27/2024 09:57 AM Modules accepted: Orders Referring Provider: CHIP CARBAJAL [[id number]] Allergies As of Date: 10/27/2024 Noted Allergy Reaction SULFAMETHOXAZOLE 10/25/2024 14 - Other: See Comments 16 - Unknown SULFAMETHOXAZOLE-TRIMETHOPRIM 12/17/2016 14 - Other: See Comments CODEINE 10/25/2024 14 - Other: See Comments Date Reviewed: 10/27/2024 Reviewed by: Mamie Meier MA - Fully Assessed Reason for Visit: Consult [173] Lung Cancer [562] Primary Visit Diagnosis:Malignant neoplasm of lower lobe of right lung (HCC) [C34.31] Order(s):MRI BRAIN WO/W IVCON [[id number]] Order #: [id number] FUTURE iv contrast (will be provided with radiology test)MRI Brain Inject, intravenously, once for 1 dose.No IV access, insert saline lock prior to beginning of sedation, infusion, injection of imaging exam.Discontinue saline lock post exam. If Pt. has a central line or IVAD, may access for administration according to line specific nursing protocol.Once exam is complete flush line and de-access according to line specific nursing protocol in the MR contrast administration guidelines linkDisp: 1 eachRfl: 0 RAD/ONC CONSULT [9037] Order #: [id number]: 1 FUTURE CONSULT TO PULMONARY MEDICINE [6379551] Order #: [id number]: 1 FUTURE CONSULT TO ONCOLOGY NUTRITION [[id number]] Order #: [id number]: 1 FUTURE COMPLETE BLOOD COUNT AND DIFFERENTIAL [SQCBCDIF] Order #: [id number] FUTURE COMPREHENSIVE METABOLIC PANEL [SQCMP] Order #: [id number] FUTURE FERRITIN [SQFERR] Order #: [id number] FUTURE IRON AND TIBC [SQIRON] Order #: [id number] FUTURE VITAMIN B12 [SQB12] Order #: [id number] FUTURE FOLATE, SERUM [SQSERFOL] Order #: [id number] FUTURE Level of Service: OFFICE/OUTPATIENT [facility] 60 MINUTES [26327] Disposition: Return in about 2 weeks (around 11/10/2024). LOS History for Encounter Follow-up and Disposition History for Encounter Date Provider Department Center 10/27/2024 [id number], ADA*SHELLY Wall Prescriptions as of 10/27/2024 - fluticasone propionate (FLONASE NASAL) Use in the nose once daily. - amoxicillin-clavulanate potassium (AUGMENTIN) 875-125 mg per tablet Take 1 tablet by mouth every 12 hours. - Acetaminophen 500 mg cap Take 500 mg by mouth once daily. Takes aout 6 a day - diphenhydramine HCl (ALLERGY MEDICATION ORAL) Take by mouth once daily. - MEN'S MULTI-VITAMIN ORAL Take by mouth once daily. - iv contrast (will be provided with radiology [...] in the MR contrast administration guidelines link - albuterol HFA (PROVENTIL HFA, VENTOLIN HFA) 90 mcg/actuation inhaler INHALE 1 PUFF INTO THE LUNGS EVERY 4 HOURS NEEDED - Benzonatate 200 mg capsule - cyclobenzaprine (FLEXERIL) 10 mg tablet Take 10 mg by mouth at bedtime as needed. - ibuprofen (MOTRIN) 200 mg tablet Take 200 mg by mouth every 6 hours as needed. - meloxicam (MOBIC) 7.5 mg tablet Take 7.5 mg by mouth once daily. - metoprolol succinate ER (TOPROL XL) 25 mg 24 hr tablet Take 25 mg by mouth. - predniSONE (DELTASONE) 20 mg tablet - tamsulosin (FLOMAX) 0.4 mg Take 0.4 mg by mouth. Problem List As Of Date 10/27/2024 Noted Resolved CALCIF TENDINITIS SHLDER [M75.30] 03/25/2006 ROTATOR CUFF SYND NOS [M71.9, M67.919] 03/25/2006 ULNAR NERVE LESION [G56.20] 03/25/2006 CARPAL TUNNEL SYNDROME [G56.00] 03/25/2006 Other instructions from your clinician: Refer to radiation oncology Refer to interventional pulmonology Ordered MRI brain F/u in 2 weeks Encounter Status:Closed by RASHEED PEREZ on 10/27/24 PROGRESS Observed: 10/27/2024 8:59 AM Status: COMPLETED Source: [facility] HNO ID: [id number] Author: MAMIE MEIER MA Service: ? Author Type: Operations Logistics Analyst Type: Progress Notes Filed: 10/27/2024 09:56 Note Text: Ravi has an irritating cough but has not coughed up blood since Wednesday, Low grade started Wednesday 102.2 chills on Wednesday (he does not take temp). He has been taking Tylenol to help minimize temps. Mamie Meier MA NM PET W/ CT SCAN SKULL BASE TO MIDTHIGH Observed: 10/18/2024 4:00 PM Status: F Source: [facility] Exam Date/Time: 10/18/2024 16:30 EDT Reason for Exam: R91.8 Report IMPRESSION: PROBABLE RIGHT INFRAHILAR PRIMARY LUNG MALIGNANCY WITH CONFLUENT SUBCARINAL AND POSTERIOR MEDIASTINAL LYMPHADENOPATHY AND POSTOBSTRUCTIVE RIGHT LOWER LOBE CONSOLIDATION. NONSPECIFIC CURVILINEAR HYPERMETABOLISM ALONG THE POSTERIOR INFERIOR PERIPHERY OF THE RIGHT LOWER LOBE CONSOLIDATION, WHICH MAY BE MALIGNANCY OR INFLAMMATORY. NO EVIDENCE OF DISTANT METASTATIC DISEASE OR OTHER FINDINGS OF CONCERN IDENTIFIED. EXAM: NM PET w/ CT Scan Skull Base to Midthigh DATE: 10/18/2024 4:00 PM CLINICAL HISTORY: R91.8. COMPARISON: Outside chest CTA 10/06/2024.. TECHNIQUE: Imaging was obtained from the base of the skull to the mid thigh on a dedicated PET CT unit. Using the filter tender jelly\X2019\s standard software, data were reconstructed using filtered back projection with and without attenuation correction. A low dose, noncontrast CT provided attenuation correction and anatomic localization. FINDINGS: Cardiac blood Pool with SUV max of 2.5 Liver background activity with SUV max of 3.3 Intense homogeneous FDG hypermetabolism is present throughout the lobulated subcarinal posterior mediastinal soft tissue mass with encasement of the right lower lobe bronchus (SUV max 17.0) A small curvilinear area of moderately intense FDG metabolism is present along the posterior inferior periphery of the right lower lobe, with FDG metabolism similar to the liver elsewhere within the dense right lower lobe consolidation, which appears substantially similar in appearance to 10/06/2024. There is no other abnormal hypermetabolism or findings of concern identified elsewhere within the chest, abdomen, pelvis neck or proximal thighs. Technical Comments: Blood Glucose Level (mg/dL) 83 Dose (mCi F-18 FDG): 13.00 Report Imaging Post Administration (mins): 50 Ordering Provider: , FINAL REPORT Dictated: 10/19/2024 1:34 pm Davian Andino MD Signed (Electronic Signature): 10/19/2024 1:34 pm Signed by: Davian Andino MD Transcribed by: DALLAS Technologist: SIGRID PATHOLOGY REQUEST FOR LAB HARPER Collected: 10/16/2024 8:00 AM Status: F Source: [facility] Order Comment: BRONCH BX TYPE CODE TESTS RESULT OUT OF RANGE REFERENCE UNITS LAB PATH TO [facility] Pathology Request for Lab Harper Result Comment: See report. Scanned copy available in EMR. PERFORMED BY: [place] [address] PATHOLOGIST MORTGAGE BANKER ANA LILIA MCLEAN M.D. Performed By: #### PATH TO [facility] #### [address] PATHOLOGY REQUEST FOR LAB HARPER Collected: 10/16/2024 7:55 AM Status: F Source: [facility] Order Comment: CYTOLOGY- BRO NCH WASHING TYPE CODE TESTS RESULT OUT OF RANGE REFERENCE UNITS LAB PATH TO [facility] Pathology Request for Lab Harper Result Comment: See report. Scanned copy available in EMR. PERFORMED BY: [place] [address] PATHOLOGIST MORTGAGE BANKER ANA LILIA MCLEAN M.D. 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 Helper ( [place]) Urology When was your last doctors visit: June or July Last provider: Alina Cardenas Any recent labs: June or July Health Maintenance UTD: Colonoscopy: 2016- or 2017 PSA: not sure Acute: Current issues/complaints: No refills Had CT done [facility] last Wednesday- found something Biopsy scheduled for October 16 History of Present Illness pt presents today to establish care Review of Systems PHQ Score Initial Depression Screen Score: 0 SCORE Physical Exam Vitals & Measurements T: 36.2 ???C(Oral) HR: 84(Peripheral) RR: 20 BP: 112/68 SpO2: 97% HT: 68 in HT: 172.0 cm WT: 203.046 lb WT: 92.1 kg BMI: 31.13 General: alert, no acute distress ENMT: oral mucosa moist, no pharyngeal erythema or exudate Cardiovascular: regular rate and rhythm, normal peripheral perfusion Respiratory: Lungs CTA, respirations non labored Extremities: no deformity, no trauma Neurological: oriented x 4, LOC appropriate for age, CN II-XII intact, motor strength equal & normal bilaterally, speech normal Assessment/Plan 1. Encounter to establish care (Z76.89: Persons encountering health services in other specified circumstances) pt presents today to establish care. was previously seen by Alina Ragland in [place]. pt was recently at [facility] ER. Had CT scan of lungs. he is scheduled for Biopsy of lung nodule on Wednesday by Dr. Carbajal. pt has had a cough for over a year. says his throat gets irritated on and off. uses cough drops for that. denies needs at this time. he will sign a release of information so we can have most recent labs and cologuard results. Ordered: Body Mass Index (BMI) documented 3008F Current tobacco non-user 1036F Depression Screening Negative 3352F Influenza immunization status assessed 1030F Most recent diastolic blood pressure <80 mm Hg 3078F Patient screen for fall risk: no falls in last year or 1 fall with no injury in last year 1101F Systolic BP <130 mm Hg (Most Recent) 3074F 2. BMI 31.0-31.9,adult, (Z68.31: Body mass index [BMI] 31.0-31.9, adult)Body mass index [BMI] 31.0-31.9, adult BMI educaiton Ordered: Body Mass Index (BMI) documented 3008F Current tobacco non-user 1036F Depression Screening Negative 3352F Influenza immunization status assessed 1030F Most recent diastolic blood pressure <80 mm Hg 3078F Patient screen for fall risk: no falls in last year or 1 fall with no injury in last year 1101F Systolic BP <130 mm Hg (Most Recent) 3074F 3. Former smoker (Z87.891: Personal history of nicotine dependence) continue not smoking Ordered: Body Mass Index (BMI) documented 3008F Current tobacco non-user 1036F Depression Screening Negative 3352F Influenza immunization status assessed 1030F Most recent diastolic blood pressure <80 mm Hg 3078F Patient screen for fall risk: no falls in last year or 1 fall with no injury in last year 1101F Systolic BP <130 mm Hg (Most Recent) 3074F 4. Class 1 obesity due to excess calories with body mass index (BMI) of 31.0 to 31.9 in adult (E66.811: Obesity, class 1) BMI education Ordered: Body Mass Index (BMI) documented 3008F Current tobacco non-user 1036F Depression Screening Negative 3352F Influenza immunization status assessed 1030F Most recent diastolic blood pressure <80 mm Hg 3078F Patient screen for fall risk: no falls in last year or 1 fall with no injury in last year 1101F Systolic BP <130 mm Hg (Most Recent) 3074F Other obesity due to excess calories (E66.09: Other obesity due to excess calories) see above Follow-up No qualifying data available Problem List/Past Medical History Ongoing Arthritis BMI 31.0-31.9,adult BPH with urinary obstruction Encounter to establish care Flank pain Former smoker Gout Head injury History of kidney stones Hx of residential use of blood thinners Kidney stones Microhematuria Renal cyst Screening PSA (prostate specific antigen) Historical Hypothyroid Procedure/Surgical History TURP - Transurethral resection of prostate (05/17/2019), Cystoscopy (12/08/2018), Colonoscopy, Tonsillectomy. Medications Albuterol (Eqv-Proventil HFA) 90 mcg/inh inhalation aerosol Breztri Aerosphere, Inhalation, BID cyclobenzaprine 10 mg Tab levothyroxine, Daily meloxicam 7.5 mg Tab metoprolol 25 mg ER Tab, 25 mg= 1 tab(s), Oral, BID Multi Vitamin+ predniSONE 10 mg Tab, Oral Vitamin C, Daily Zinc, Oral, Daily, Not taking Allergies codeine (Sweating) Bactrim (Unable to void) Pollen (Watery eye, Eye swelling) sulfamethoxazole (Unknown, Unable to urinate) Social History Alcohol Never., 10/13/2024 Substance Abuse Never., 10/13/2024 Tobacco Former smoker, quit more than 30 days ago, quit 2016 Tobacco Use:., 10/13/2024 Family History Acute myocardial infarction: Father. Hypertension: Father. Immunizations Vaccine Date Status Comments influenza virus vaccine, inactivated 03/31/2024 Recorded influenza virus vaccine, inactivated 04/21/2023 Recorded influenza virus vaccine, inactivated 03/16/2022 Recorded influenza virus vaccine, inactivated 04/07/2021 Recorded SARS-CoV-2 (COVID-19) mRNA-1273 vaccine 09/25/2020 Recorded 2022-06-22: 50 SARS-CoV-2 (COVID-19) mRNA-1273 vaccine 08/28/2020 Recorded SARS-CoV-2 (COVID-19) mRNA-1273 vaccine 2020 Recorded pt states he is fully vaccinated influenza virus vaccine, inactivated 04/02/2020 Recorded influenza virus vaccine, inactivated 03/14/2017 Recorded Result Comment: Electronical ly Signed By: Brandi Sethi\haley\Date and Time Signed: 10/13/24 12:40 EDT XR CHEST 2V* Observed: 08/31/2024 10:22 AM Status: COMPLETED Source: [facility] [place] [address] [address] XRay Report Signed Patient: Frantz Roa II MR#: [id number] : 1960 Acct:[id number] Age/Sex: 63 / M ADM Date: 08/31/24 Loc: XDUCLY Room: Type: [facility] Attending Dr: Tonja De Oliveira APRN Copies to: Tonja De Oliveira APRN Ordering Provider: Tonja De Oliveira APRN Date of Service: 08/31/24 XR/XR chest 2V*: COUGH Chest 2 views CLINICAL HISTORY: Dry cough for 2 months. COMPARISON: None FINDINGS: Heart normal size. Lungs are clear. No free air. XR/XR chest 2V* IMPRESSION: NO ACUTE CARDIOPULMONARY ABNORMALITY. Impression dictated by: Neftali Lewis Jr., D.O.08/31/2024 10:22 AM Dictation Location: [place] [address] Transcribed By: [facility] 08/31/24 1022 Dictated By: Neftali Lewis Jr, DO 08/31/24 1022 Signed By: <Electronically signed by Neftali Lewis Jr, DO in OV> 08/31/24 1022 ALLERGIES DATE TYPE / CODE NAME / CODE REACTION SEVERITY SOURCE 10/25/2024 DRUG INGREDI/41 5619943(SN OMED CT) SULFAMETHOXAZOLE OTHER: SEE C [facility] 10/25/2024 DRUG INGREDI/41 5879767(SN OMED CT) CODEINE OTHER: SEE C [facility] 12/17/2016 DRUG/65876 1003(SNOME D CT) SULFAMETHOXAZOLE-TRIME THOPRIM OTHER: SEE C [facility] /1323625 06(SNOMED CT) codeine [id number] Mild (Qualifier Value) [facility] /7816578 06(SNOMED CT) sulfamethoxazole Unable to urinate~Unknown [facility] DEMETRIUS/2292153 06(SNOMED CT) Pollen 450404537~972673 2706 [facility] /0730971 06(SNOMED CT) Bactrim unable to void [facility] ENCOUNTERS ADMIT/DISCHARGE ACCOUNT NUMBER ADMITTING ENCOUNTER CLASS LOCATION SOURCE 2024 [id number] [place] [facility] 10/30/2024/10/31/19 [id number] [facility] 10/27/2024/10/28/19 [id number] [facility] 10/18/2024 [id number] [facility] [place] [facility] 10/16/2024/10/17/19 [id number] Chip Carbajal [facility] 10/13/2024/10/14/19 [id number] [facility] [place] [place]: CD:[id number] [facility] 10/10/2024 [id number] [facility] [place] [facility] 08/31/2024/09/01/19 [id number] Tonja De Oliveira [facility] PAYERS ENCOUNTER GUARANTOR PAYER SUBSCRIBER SOURCE 2024 FRANTZ OROB: BEE Navas: ~~(41 HP) Primary Insurance:AnthemPo licy Number: [id number] ective Date:[id number] [address]FR: FRANTZ CONNER [facility] 10/30/2024 Primary Insurance:BLUE CARD PPO OOSPolicy Number: [id number] ective Date:6327-65-66Hrt n Name:Mason NICHOLS: [id number] [place] [address] [facility] 10/27/2024 Primary Insurance:BLUE CARD PPO OOSPolicy Number: [id number] ective Date:2548-12-01Sfk n Name:Mason NICHOLS: [id number] [place] [address] [facility] 10/18/2024 FRANTZ ROA IIDOB: BEE ~~(41 (HP) Primary Insurance:AnthemPo licy Number: [id number] ective Date:7566-35-97JB [address] [place] [address] [place] [address]KJ: [facility] 10/13/2024 FRATNZ ROA IIDOB: BEE ~~(41 (HP) Primary Insurance:AnthemPo licy Number: [id number] ective Date:0404-88-12[address], [place] [address]KD: [facility]
--- OUTSIDE RECORDS SUMMARY | 2024-11-02 11:40 | XMS_ITS ---
Author Name Auto Generated Organization OHIP Care Team Providers Care Diamond Cleaver Name Role Phone Braden Chip P Admitting Unavailable Samsa, Chip P Attending Unavailable De Oliveira, Tonja L Attending Unavailable Ragland, Alina A Primary Care Unavailable De Oliveira, Tonja L Admitting Unavailable SAMSA, CHIP P Referring Unavailable SAMSA, CHIP P Attending Unavailable Dennis, Brandi L Attending Unavailable Dennis, Brandi L Attending Unavailable DENNIS, BRANDI L Primary Care Unavailable BEE PABON Attending Unavailable VENNEPUREDDYRASHEED Attending Unavailable SAMSA, CHIP P Referring Unavailable DENNIS, BRANDI L Primary Care Unavailable PROBLEMS DATE TYPE CONDITION / CODE ATTENDING STATUS [facility] 10/30/2024 Active Malignant neopla sm of lower lobe of right lung (HCC) / C34.31(ICD-10) BEE PABON Active [facility] PROCEDURES No Procedure Records Found RESULTS CNPN Observed: 11/01/2024 12:00 AM Status: COMPLETED Source: [facility] Telephone (HEMASA) FRANTZ ROA ([id number]) 1960 M Date Time Provider Department 11/01/24 BRITTANY MARIE During your visit today, we recorded the following information about you: Brittany Marie RN 11/01/2024 3:30 PM Addendum Pt reports pt is scheduled at [facility] for a second bronchoscopy 11/20/24 [...] 11/01/2024 12:00 AM Status: COMPLETED Source: [facility] Telephone ([id number]) FRANTZ ROA ([id number]) 1960 Date Time Provider Department 11/01/24 ROBERT NOLASCO ROS194 During your visit today, we recorded the [...] Observed: 10/31/2024 4:33 PM Status: COMPLETED Source: [facility] HNO ID: [id number] Author: DENNIS HERNÁNDEZ RN Service: ? Author [...] protocol etc.) none Additional notes to the wireline operator: OSH Bronchoscopy showed an mass obstructing BI, patient requested IP evaluation. SqCell Carcinoma. T4N2M0 IIIB for now, starting chemorads Consultation request/referral by: Referring Physician: Dr. Rasheed Perez Address: [facility] Mae Phone #: [phone] Fax #: [phone] Reviewed by: MD Maryuri Aguilar MD October 31, 2024 4:33 PM Addendum: CBC with diff: No results found for this basename: WBC,RBC,HB,HCT,MCV,MCH,MCHC,RDWCV,PLT,MPV,NEUTP,LYMPHP,MONOP,EODINP,BASOP,ABSNEU T,ABSLYM,ABSMONO,ABSEOSIN,ABSBASO No results found for: K No results found for: NA No results found for: BUN No results found for: CREAT PROGRESS Observed: 10/30/2024 2:39 PM Status: COMPLETED Source: [facility] HNO ID: [id number] Author: BEE PABON RD Service: ? Author Type: Registered Dietitian Type: Progress Notes Filed: 2024 14:55 Note Text: [facility] Nutrition Therapy: Virtual Consult - Initial Assessment I have communicated my name and active licensure. The patient?s identity and physical location were verified at the time of this visit. Either the patient or their legal hospital sales representative has been informed of the [...] 10/30/2024 2:30 PM Status: COMPLETED Source: [facility] Education (NUTRMA) FRANTZ ROA ([id number]) 1960 M Date Time Provider Department 10/30/24 2:30 PM BEE PABON Reason for Visit: Nutrition Telephone [2013] Visit Diagnosis:Malignant neoplasm of lower lobe of right lung (HCC) [C34.31] Order(s):CONSULT TO ONCOLOGY NUTRITION [[id number]] Order #: [id number]: 1 During your visit today, we recorded [...] 10/27/2024 9:00 AM Status: COMPLETED Source: [facility] HN ID: [id number] Author: RASHEED PEREZ MD Service: ? Author Type: Physician Type: Progress Notes Filed: 10/27/2024 09:56 Note Text: PATIENT NAME: Frantz Roa II CLINIC NO.: [id number] ATTENDING PHYSICIAN: Rasheed Perez MD DATE OF SERVICE: October 27, [address] Chip Carbajal [address] [place] [address] thank you for referring Frantz Roa II for an opinion regarding Lung cancer. CHIEF COMPLAINT: Lung cancer HPI: Frantz Roa II is a 63 year old year old male with PMH of HTN referred to us for lung cancer. CT chest : PET scan: C/o cough and lost 30lbs. Quit smoking in 2017. Smoked 1 pk/day for 40yrs. 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 C/o hemoptysis. [...] [address] Chip Carbajal [address] [address] thank you for allowing me to participate in Frantz Roa II care, if there are any questions or concerns please do not hesitate to contact me at the number below. I spent a total of 60 minutes on the date of the service which included preparing to see the patient, kiky-si-qcjh patient care, completing clinical documentation, obtaining and/or reviewing separately obtained history, performing a medically appropriate examination, counseling and educating the patient/family/caregiver, ordering medications, tests, or procedures, communicating with other HCPs (not separately reported), independently interpreting results (not separately reported), communicating results to the patient/family/caregiver, and care coordination (not separately reported). Rasheed Perez MD. Hematology/Medical Oncology [facility] Mae [phone] CC: CNOVSP Observed: 10/27/2024 9:00 AM Status: COMPLETED Source: [facility] GAVIRIA Visit (SP) Office (HEMASA) FRANTZ ROA ([id number]) 1960 M Date Time Provider Department 10/27/24 [...] PATIENT NAME: Frantz Roa II CLINIC NO.: [id number] ATTENDING PHYSICIAN: Rasheed Perez MD DATE OF SERVICE: October 27, [address] Chip Carbajal [address] [place] [address] thank you for referring Frantz Roa II for an opinion regarding Lung cancer. CHIEF COMPLAINT: Lung cancer HPI: Frantz Roa II is a 63 year old year old male with PMH of HTN referred to us for lung cancer. CT chest : PET scan: C/o cough and lost 30lbs. Quit smoking in 2017. Smoked 1 pk/day for 40yrs. 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 C/o hemoptysis. [...] [address] Chip Carbajal [address] [address] thank you for allowing me to participate in Frantz Roa II care, if there are any questions or concerns please do not hesitate to contact me at the number below. I spent a total of 60 minutes on the date of the service which included preparing to see the patient, gzlk-aa-oqhf patient care, completing clinical documentation, obtaining and/or reviewing separately obtained history, performing a medically appropriate examination, counseling and educating the patient/family/caregiver, ordering medications, tests, or procedures, communicating with other HCPs (not separately reported), independently interpreting results (not separately reported), communicating results to the patient/family/caregiver, and care coordination (not separately reported). Rasheed Perez MD. Hematology/Medical Oncology [facility] [place] [phone] CC: Rasheed Perez MD 10/27/2024 9:26 AM Signed Refer to radiation oncology Refer to interventional pulmonology Ordered MRI brain F/u in 2 weeks Rasheed Perez MD 10/27/2024 9:57 AM Signed Addended by: RASHEED PEREZ on: 10/27/2024 09:57 AM Modules accepted: Orders Referring Provider: CHIP CARBAJAL [[id number]] Allergies As of Date: 10/27/2024 Noted Allergy [...] lung (HCC) [C34.31] Order(s):MRI BRAIN WO/W IVCON [5261980] Order #: [id number] FUTURE iv contrast (will be provided with [...] eachRfl: 0 RAD/ONC CONSULT [9037] Order #: [id number]: 1 FUTURE CONSULT TO PULMONARY MEDICINE [5780333] Order #: [id number]: 1 FUTURE CONSULT TO ONCOLOGY NUTRITION [0409989] Order #: [id number]: 1 FUTURE COMPLETE BLOOD COUNT AND DIFFERENTIAL [SQCBCDIF] Order #: [id number] FUTURE COMPREHENSIVE METABOLIC PANEL [SQCMP] Order #: [id number] FUTURE FERRITIN [SQFERR] Order #: [id number] FUTURE IRON AND TIBC [SQIRON] Order #: [id number] FUTURE VITAMIN B12 [SQB12] Order #: [id number] FUTURE FOLATE, SERUM [SQSERFOL] Order #: [id number] FUTURE Level of Service: OFFICE/OUTPATIENT [facility] 60 MINUTES [12534] Disposition: Return in about 2 weeks (around 11/10/2024). LOS History for Encounter Follow-up and Disposition History for Encounter Date Provider Department Center 10/27/2024 [id number], ADA*SHELLY Wall Prescriptions as of 10/27/2024 - [...] 10/27/2024 8:59 AM Status: COMPLETED Source: [facility] HNO ID: [id number] Author: MAMIE MEIER MA Service: ? Author Type: Research Biostatistician Type: Progress Notes Filed: 10/27/2024 09:56 Note Text: Ravi has an irritating cough but has not coughed up blood since Wednesday, Low grade started Wednesday 102.2 chills on Wednesday (he does not take temp). He has been taking Tylenol to help minimize temps. Mamie Meier MA NM PET W/ CT SCAN SKULL BASE TO MIDTHIGH Observed: 10/18/2024 4:00 PM Status: F Source: [facility] Exam Date/Time: 10/18/2024 16:30 EDT Reason [...] a dedicated PET CT unit. Using the citrix systems administrator\X2019\s standard software, data were reconstructed using filtered [...] Collected: 10/16/2024 8:00 AM Status: F Source: [facility] Order Comment: BRONCH BX TYPE CODE TESTS RESULT OUT OF RANGE REFERENCE UNITS LAB PATH TO [facility] Pathology Request for Lab Harper Result Comment: See report. Scanned copy available in EMR. PERFORMED BY: [place] [address] PATHOLOGIST OXIDE FURNACE TENDER ANA LILIA MCLEAN M.D. Performed By: #### PATH TO [facility] #### [address] PATHOLOGY REQUEST FOR LAB HARPER Collected: 10/16/2024 7:55 AM Status: F Source: [facility] Order Comment: CYTOLOGY- BRO NC WASHING TYPE CODE TESTS RESULT OUT OF RANGE REFERENCE UNITS LAB PATH TO [facility] Pathology Request for Lab Harper Result Comment: See report. Scanned copy available in EMR. PERFORMED BY: [place] [address] PATHOLOGIST OXIDE FURNACE TENDER ANA LILIA MCLEAN M.D. Performed By: #### [facility] #### [address] [place] [id number] [facility] FAMILY MEDICINE OFFICE/CLINI C NOTE Observed: 10/13/2024 10:57 AM Status: F Source: [facility] Family Medicine Office/Clini c Note HPI Staff Landon is a 63 year old female presenting with Establish Care: History: Any previous diagnosis: HTN, arthritis History of seeing any specialist: Global Implementation Manager ( Braden) Urology When was your last doctors visit: June or July Last provider: Alina Cardenas Any recent labs: June or July Health Maintenance UTD: Colonoscopy: 2016- or 2017 PSA: not sure Acute: Current issues/complaints: No refills Had CT done [facility] last Wednesday- found something Biopsy scheduled [...] was previously seen by Alina Ragland in [place]. pt was recently at [facility] ER. Had CT scan of lungs. 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 Attending Dr: Tonja De Oliveira APRN Copies [...] Lewis Jr., D.O.08/31/2024 10:22 AM Dictation Location: [address] [address] Transcribed By: [facility] 08/31/24 1022 Dictated By: Neftali Lewis Jr, DO 08/31/24 1022 Signed By: <Electronically signed by Neftali Lewis Jr, in OV> 08/31/24 1022 ALLERGIES DATE TYPE / CODE NAME / CODE REACTION SEVERITY SOURCE 10/25/2024 DRUG INGREDI/41 1268862(SN OMED CT) SULFAMETHOXAZOLE OTHER: SEE C [facility] 10/25/2024 DRUG INGREDI/41 2837975(SN OMED CT) CODEINE OTHER: SEE C [facility] 12/17/2016 DRUG/00018 1003(SNOME D CT) SULFAMETHOXAZOLE-TRIME THOPRIM OTHER: SEE C [facility] /8143545 06(SNOMED CT) codeine [id number] Mild (Qualifier Value) [facility] /4805273 06(SNOMED CT) sulfamethoxazole Unable to urinate~Unknown [facility] EN/6807599 06(SNOMED CT) Pollen 440800210~347534 9915 [facility] /3702482 06(SNOMED CT) Bactrim unable to void [facility] ENCOUNTERS ADMIT/DISCHARGE ACCOUNT NUMBER ADMITTING ENCOUNTER CLASS LOCATION SOURCE [id number] [facility] 10/30/2024/10/31/19 [id number] Ambulatory [facility] 10/27/2024/10/28/19 [id number] Ambulatory [facility] [facility] 10/18/2024 [id number] [facility] 10/16/2024/10/17/19 [id number] Chip Carbajal [facility] 10/13/2024/10/14/19 [id number] [facility] [place]:[id number] [facility] 10/10/2024 [id number] [facility] [place] [facility] 08/31/2024/09/01/19 [id number] Tonja De Oliveira [facility] PAYERS ENCOUNTER GUARANTOR PAYER SUBSCRIBER SOURCE 2024 FRANTZ OROB: BEE Navas: ~~(41 HP) Primary Insurance:AnthemPo licy Number: [id number] ective Date:6153-74-23[address] [place] [address]WV: FRANTZ ROA [facility] 10/30/2024 Primary Insurance:BLUE CARD PPO OOSPolicy Number: [id number] ective Date:7633-03-47Jfy n Name:Mason NICHOLS: [id number] [place] [address] [facility] 10/27/2024 Primary Insurance:BLUE CARD PPO OOSPolicy Number: [id number] ective Date:6961-56-15Cib n Name:Mason NICHOLS: [id number] [place] [address] [facility] 10/18/2024 FRANTZ ROA IIDOB: BEE STTel: ~~(41 (HP) Primary Insurance:AnthemPo licy Number: [id number] ective Date:7951-08-11DT [address] [place] [address]GI: [place] [facility] 10/13/2024 FRANTZ ROA IIDOB: BEE ~~(41 (HP) Primary Insurance:AnthemPo licy Number: [id number] ective Date:0610-52-91RU [address] [place] [address] [place] [address]SU: [facility]
[2024-11-03] VITALS (24 sets, daily range): BP systolic 96–183; BP diastolic 51–76; PULSE 99–115; TEMP 36.7; O2SAT 95–100; BMI 32.2; BMI 30.8
--- NOTE | 2024-11-03 21:18 | ECG_ITS ---
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 Measurements Intervals [place]bin Rate: 107 P: 213 VT: 196 QRS: 45 QRSD: 134 T: 40 QT: 380 QTc: 443 Interpretive Statements Sinus tachycardia 2450 Right bundle branch block 9150 abnormal ECG Compared to ECG 11/02/2024 22:48:46 Right-axis deviation no longer present Electronically Signed On 11-04-2024 10:05:44 EDT by AGATHA SALAZAR M.D.
--- NOTE | 2024-11-03 21:18 | XR_ITS ---
The [address] [address] Patient Name: JATIN KOCH MRN: [id number] date: 1960 Sex: M Assigned Patient Location: ER Current Patient Location: ED.MAIN Accession/Order Number: [id number] Exam Date: 11/03/2024 23:22 Report Date: 11/03/2024 23:27 At the request of: REJI PRECIADO Procedure: XR chest 1V Plain film chest Single view HISTORY: Syncope COMPARISON: CT chest 11/03/2024 subcarinal mediastinal mass identified. FINDINGS: SUPPORT DEVICES: None POSTSURGICAL CHANGES: None HEART: Within normal limits PULMONARY MIK: Within normal limits MEDIASTINUM: Subcarinal mediastinal mass redemonstrated. LUNGS AND PLEURA: The right basilar atelectasis present. No developing, pleural effusion or pneumothorax. BONY STRUCTURES: Intact ADDITIONAL FINDINGS None XR/XR chest 1V IMPRESSION: Similar findings of subcarinal mediastinal mass with right basilar atelectasis is better seen with CT of the chest.. No new findings. Impression dictated by: Kirk Mccann M.D. 11/03/2024 11:27 PM Dictation Location[facility] Electronically authenticated by: [id number] Y Date: 11/03/2024 23:27
[2024-11-03 21:31] LABS: Basophils Percent Auto 0.1 % (0.2-2.0); Eosinophils Percent Auto 0.2 % (0.9-7.0); Hematocrit 37.4 % (42.0-54.0); Hemoglobin 11.9 g/dL (14.0-18.0); Immature Granulocytes Abs Auto 0.41 10^3/uL (0.00-0.03); Immature Granulocytes Pct Auto 2.2 % (0.0-0.5); Lymphocytes Absolute Auto 1.2 10^3/uL (1.2-3.8); Lymphocytes Percent Auto 6.2 % (20.5-60.0); Mean Corpuscular HGB Conc 31.8 g/dL (29.9-35.2); Mean Corpuscular Hemoglobin 27.8 pg (25.9-34.0); Mean Corpuscular Volume 87.4 fL (80.0-94.0); Mean Platelet Volume 9.1 fL (9.5-13.5); Monocytes Absolute Auto 0.5 10^3/uL (0.3-0.8); Monocytes Percent Auto 2.8 % (1.7-12.0); Neutrophils Absolute Auto 16.3 10^3/uL (1.4-6.5); Neutrophils Percent Auto 88.5 % (43.0-75.0); Platelet Count 325 10^3/uL (150-450); Red Blood Count 4.28 10^6/uL (4.70-6.10); Red Cell Distribution Width 15.2 % (11.0-15.0); White Blood Count 18.4 10^3/uL (4.0-11.0)
[2024-11-03 21:51] LABS: Alanine Aminotransferase 30 U/L (16-63); Albumin Globulin Ratio 0.7; Alkaline Phosphatase 94 U/L (46-116); Anion Gap 18.7; Aspartate Amino Transferase 10 U/L (15-37); BUN Creatinine Ratio 18.5; Bilirubin Total 0.3 mg/dL (0.2-1.0); Calcium 9.9 mg/dL (8.5-10.1); Carbon Dioxide 24.8 mmol/L (21.0-32.0); Chloride 98 mmol/L (98-107); Estimated GFR (African America >60 (>=60 mL/min/1.73m^2); Estimated GFR (Non-African Ame 59 (>=60 mL/min/1.73m^2); Globulin 4.5 g/dL; Glucose 155 mg/dL (74-106); Magnesium 1.8 mg/dL (1.8-2.4); Phosphorus 3.7 mg/dL (2.6-4.7); Potassium 4.5 mmol/L (3.5-5.1); Sodium 137 mmol/L (136-145); Total Protein 7.5 g/dL (6.4-8.2); Troponin I High Sensitivity 9.5 pg/mL (4.0-76.1)
[2024-11-03] MEDS: 0.9 % SODIUM CHLORIDE 1,000 ML 999 ML IV (21:54)
[2024-11-03] MEDS: CEFTRIAXONE 1,000 MG in 0.9 % SODIUM CHLORIDE 50 ML 100 MG IV (23:42)
[2024-11-04] VITALS (39 sets, daily range): BP systolic 111–165; BP diastolic 57–85; PULSE 85–116; TEMP 36.4–36.7; O2SAT 93–97; BMI 31.7
[2024-11-04] MEDS: DOXYCYCLINE HYCLATE 100 MG in 0.9 % SODIUM CHLORIDE 100 ML IV (00:15)
--- NOTE | 2024-11-04 00:42 | ED.SYNCOPE1 ---
HPI - Syncope General Chief Complaint: Syncope Stated Complaint: other Time Seen by Provider: 11/03/24 21:09 Source: patient Mode of arrival: Wheelchair Limitations: no limitations History of Present Illness HPI narrative: cc - multiple syncopal episodes Patient brought in by family for evaluation after multiple syncopal episodes at home. Patient was diagnosed with lung cancer in the mediastinum back in September 2024 when I saw him in the ED. He subsequently was evaluated by Dr. Feliciano and has appointments pending with the [facility] for chemotherapy and radiation evaluation and treatment. He presented to the ED complaining of dizziness and was initially discharged home before returning and then being admitted, found to have sepsis and was started on IV antibiotic for his pneumonia. He was discharged home in the afternoon of 11/03/2024 but return to the ED after having multiple syncopal episodes at home. He was put in a wheelchair from the car and felt like he was going to pass out so he was brought back immediately to room 5. As we transferred him from the wheelchair to the cot he did pass out. He denied any palpitations, chest pain or shortness of breath. He told me that before each instance of passing out I felt like it was coming on . He told me that he had eaten steak for dinner and that he been drinking fluids since discharge. He had not gotten his antibiotics filled. Related Data Home Medications ?Medication ?Instructions ?Recorded ?Confirmed cyclobenzaprine 10 mg tablet 10 mg PO .qhs PRN muscle pain 10/06/24 11/03/24 meloxicam 7.5 mg tablet 7.5 mg PO QDAY 10/06/24 11/02/24 acetaminophen 325 mg tablet 650 mg PO Q6H PRN pain 10/12/24 11/03/24 (Tylenol) dextromethorphan-guaifenesin 30 1 tab PO DAILY 10/12/24 11/02/24 mg-600 mg tablet extended hr (Mucinex DM) fluticasone propionate 50 1 spray intranasal DAILY PRN nasal 10/12/24 11/02/24 mcg/actuation nasal congestion spray,suspension (24 Hour Allergy Relief) jqeeebvpkrns-skywstph-whwgzt 1 tab PO DAILY 10/12/24 11/02/24 tablet (Multivitamin 50 Plus tablet) benzonatate 200 mg capsule 200 mg PO DAILY PRN cough 11/02/24 11/03/24 prednisone 20 mg tablet 20 mg PO .QD 11/02/24 11/03/24 metoprolol succinate 25 mg 25 mg PO .QD 11/03/24 11/03/24 tablet,extended release 24 hr Previous Rx's ?Medication ?Instructions ?Recorded meclizine 25 mg tablet 25 mg PO TID #20 tabs 11/02/24 levofloxacin 750 mg tablet 750 mg PO Q24H 14 days #14 tabs 11/03/24 prednisone 10 mg tablet 50 mg (5 x 10 mg) PO DAILY #47 tabs 11/03/24 Allergies Allergy/AdvReac Type Severity Reaction Status Date / Time codeine Allergy Severe Flushing Verified 11/03/24 21:40 sulfamethoxazole (From AdvReac Severe difficulty Verified 11/03/24 21:40 Bactrim) urinating trimethoprim (From Bactrim) AdvReac Severe Unknown Verified 11/03/24 21:40 PFSH PFS Medical History (Updated 11/04/24 @ 00:49 by Robert Jeffrey) Carpal tunnel syndrome ?G56.00 - Carpal tunnel syndrome, unspecified upper limb (ICD-10) Back pain ?M54.9 - Dorsalgia, unspecified (ICD-10) Arthritis ?M19.90 - Unspecified osteoarthritis, unspecified site (ICD-10) Snores ?R06.83 - Snoring (ICD-10) Sleep apnea ?G47.30 - Sleep apnea, unspecified (ICD-10) Influenza ?J11.1 - Influenza due to unidentified influenza virus with other respiratory manifestations (ICD-10) Right lower lobe lung mass ?R91.8 - Other nonspecific abnormal finding of lung field (ICD-10) Skin cancer ?C44.90 - Unspecified malignant neoplasm of skin, unspecified (ICD-10) Hypoxia ?R09.02 - Hypoxemia (ICD-10) 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 - Shortness of breath (ICD-10) ?U09.9 - Post covid-19 condition, unspecified (ICD-10) HTN (hypertension) ?I10 - Essential (primary) hypertension (ICD-10) KERR (dyspnea on exertion) ?R06.09 - Other forms of dyspnea (ICD-10) Pneumonia ?J18.9 - Pneumonia, unspecified organism (ICD-10) COVID-19 ?U07.1 - COVID-19 (ICD-10) History of COVID-19 ?Z86.16 - Personal history of COVID-19 (ICD-10) Surgical History (Updated 10/12/24 @ 12:46 by Macy Goodrich NP) H/O transurethral resection of prostate ?Z98.890 - Other specified postprocedural states (ICD-10) ?Z90.79 - Acquired absence of other genital organ(s) (ICD-10) History of colonoscopy ?Z98.890 - Other specified postprocedural states (ICD-10) History of myringotomy ?Z98.890 - Other specified postprocedural states (ICD-10) History of carpal tunnel release ?Z98.890 - Other specified postprocedural states (ICD-10) History of carpal tunnel surgery ?Z98.890 - Other specified postprocedural states (ICD-10) History of tonsillectomy ?Z90.89 - Acquired absence of other organs (ICD-10) Family History (Updated 10/06/24 @ 23:50 by Svetlana Kimball RN) Father Family history of myocardial infarction Son Family history of stroke Other Family history of CHF (congestive heart failure) Social History (Updated 10/06/24 @ 23:51 by Svetlana Kimball RN) Within the past year, how often did you have a drink containing alcohol: never Score interpretation: A score less than 4 is consistent with normal alcohol consumption. Smoking status: Former smoker Non-prescribed substance use: denies use Highest level of school completed/degree received: Associate degree: occupational, technical, vocational program Are you now , , , , never or living with a partner: In a typical week, how many times do you talk on the telephone with family, friends, or neighbors: once per week How often do you get together with friends or relatives: once per week Little interest or pleasure in doing things: not at all Feeling down, depressed, or hopeless: not at all Do you think of yourself as: straight/heterosexual Gender Identity: male Exam Narrative Exam Narrative: Nurses notes and vital signs reviewed and patient is not hypoxic. afebrile General: Well-appearing and in no apparent distress. Skin: Warm, dry, no pallor noted. No rash. Head: Normocephalic, atraumatic. Neck: Supple, non-tender. Eye: Pupils are equal, round and EOMI. No scleral icterus. Ears, Nose, Mouth, and Throat: TM are clear, no posterior oropharynx erythema or nasal mucosal hypertrophy, uvula is mid-line Oral mucosa is moist Cardiovascular: Regular Rate and Rhythm without murmur, gallop or rub -borderline tachycardia. Respiratory: No accessory muscle use or respiratory distress. Lungs are clear to auscultation, no wheezing, rales or rhonchi Chest Wall: no tenderness Back: No midline thoracic or lumbar vertebral tenderness. No CVA tenderness Musculoskeletal: normal ROM, no calf or popliteal tenderness, no lower extremity edema/swelling GI: Abdomen is soft, non-distended. Normal bowel sounds. No masses appreciated. No tenderness to palpation. No rebound, guarding, or rigidity noted. Neurological: A&O x4. No cranial nerve dysfunction observed. No truncal ataxia. Moves all extremities. Sensation intact. Psychiatric: Cooperative and interactive. Normal mood and affect. Constitutional Vital Signs, click to edit/add: Last Vital Signs Temp 98.0 F 11/03/24 21:43 Pulse 99 H 11/03/24 23:40 Resp 16 11/03/24 23:40 BP 117/51 11/03/24 23:30 Pulse Ox 96 11/03/24 23:40 O2 Del Method Room Air 11/03/24 21:43 Course Vital Signs Vital signs: Vital Signs Blood Pressure 183/76 H 11/03/24 21:07 Temperature 98.0 F 11/03/24 21:43 Pulse Rate 99 H 11/03/24 23:40 Respiratory Rate 16 11/03/24 23:40 Blood Pressure 117/51 11/03/24 23:30 Pulse Oximetry 96 11/03/24 23:40 Oxygen Delivery Method Room Air 11/03/24 21:43 MDM - Syncope MDM Narrative Medical decision making narrative: Patient was placed on international account representative and EKG obtained. Blood drawn and sent for evaluation. He was ordered to receive normal saline IV fluid. Portable chest x-ray was obtained. The patient was found to have worsening white blood cell count, increased BUN and increased creatinine since his discharge. He was given IV Levaquin in the emergency department Call was placed to the on-call tele hospitalist to discuss admission. I spoke with Carmen Patton and she agreed to admit this patient to stepdown unit on an inpatient basis for further evaluation and treatment. Patient and family were informed of results and plan for admission and were agreeable. No additional syncopal episodes after ED treatment while in my care. Differential Diagnosis Differential diagnosis: Likely syncope due to orthostatic hypotension, vasovagal syncope, complete atrioventricular block and dehydration Medical Records Attestation: I reviewed the patient's medical records. Lab Data Attestation: I reviewed the patient's lab results. Labs: Lab Results 11/03/24 Range/Units 21:20 WBC 18.4 H (4.0-11.0) 10^3/uL RBC 4.28 L (4.70-6.10) 10^6/uL Hgb 11.9 L (14.0-18.0) g/dL Hct 37.4 L (42.0-54.0) % MCV 87.4 (80.0-94.0) fL MCH 27.8 (25.9-34.0) pg MCHC 31.8 (29.9-35.2) g/dL RDW 15.2 H (11.0-15.0) % Plt Count 325 (150-450) 10^3/uL MPV 9.1 L (9.5-13.5) fL Neut % (Auto) 88.5 H (43.0-75.0) % Lymph % (Auto) 6.2 L (20.5-60.0) % [place] % (Auto) 2.8 (1.7-12.0) % Eos % (Auto) 0.2 L (0.9-7.0) % Baso % (Auto) 0.1 L (0.2-2.0) % Neut # (Auto) 16.3 H (1.4-6.5) 10^3/uL Lymph # (Auto) 1.2 (1.2-3.8) 10^3/uL [place] # (Auto) 0.5 (0.3-0.8) 10^3/uL Eos # (Auto) 0.0 (0.0-0.7) 10^3/uL Baso # (Auto) 0.0 (0.0-0.1) 10^3/uL Abs Immat Gran (auto) 0.41 H (0.00-0.03) 10^3/uL Imm/Tot Granulo (auto) 2.2 H (0.0-0.5) % Sodium 137 (136-145) mmol/L Potassium 4.5 (3.5-5.1) mmol/L Chloride 98 (98-107) mmol/L Carbon Dioxide 24.8 (21.0-32.0) mmol/L Anion Gap 18.7 BUN 23.0 H (7.0-18.0) mg/dL Creatinine 1.24 (0.70-1.30) mg/dL Est GFR ( Amer) >60 (>=60 mL/min/1.73m^2) Est GFR (Non-Af Amer) 59 L (>=60 mL/min/1.73m^2) BUN/Creatinine Ratio 18.5 Glucose 155 H (74-106) mg/dL Calcium 9.9 (8.5-10.1) mg/dL Phosphorus 3.7 (2.6-4.7) mg/dL Magnesium 1.8 (1.8-2.4) mg/dL Total Bilirubin 0.3 (0.2-1.0) mg/dL AST 10 L (15-37) U/L ALT 30 (16-63) U/L Alkaline Phosphatase 94 (46-116) U/L Troponin I High Sens 9.5 (4.0-76.1) pg/mL NT-Pro-B Natriuret Pep 560.0 (<=900.0) pg/mL Total Protein 7.5 (6.4-8.2) g/dL Albumin 3.0 L (3.4-5.0) g/dL Globulin 4.5 g/dL Albumin/Globulin Ratio 0.7 Imaging Data Chest x-ray: Radiologist's impression: ITS Impressions Chest X-Ray 11/03/24 21:18 IMPRESSION: Similar findings of subcarinal mediastinal mass with right basilar atelectasis is better seen with CT of the chest.. No new findings. Impression dictated by: Kirk Mccann M.D. 11/03/2024 11:27 PM Dictation Location: [place] [address] Electronically authenticated by: [id number] Y Date: 11/03/2024 23:27 ECG Data Attestation: I personally reviewed and interpreted this ECG as follows: Interpretation: EKG interpretation: Emergency Department physician interpretation. Sinus tachycardia at 107bpm. First-degree AV block, right bundle branch block, possible right atrial enlargement Discharge Plan Discharge Chief Complaint: Syncope Clinical Impression: Recurrent syncope, Acute kidney injury, Leukocytosis, Pneumonia Patient Disposition: Admitted As Inpatient Time of Disposition Decision: 00:49
--- NOTE | 2024-11-04 03:10 | PC.NURSE ---
this patient awake and alert sitting upright on the bed and this patient voices no concerns and shows no signs of distress. this patient's walked upstairs with us to the patient's room
[2024-11-04] MEDS: 0.9 % SODIUM CHLORIDE 1,000 ML 75 ML IV ×2 (03:22→13:33)
[2024-11-04 03:48] LABS: Basophils Percent Auto 0.2 % (0.2-2.0); Eosinophils Percent Auto 0.1 % (0.9-7.0); Hematocrit 31.6 % (42.0-54.0); Hemoglobin 10.3 g/dL (14.0-18.0); Immature Granulocytes Abs Auto 0.31 10^3/uL (0.00-0.03); Immature Granulocytes Pct Auto 1.7 % (0.0-0.5); Lymphocytes Absolute Auto 1.4 10^3/uL (1.2-3.8); Lymphocytes Percent Auto 7.9 % (20.5-60.0); Mean Corpuscular HGB Conc 32.6 g/dL (29.9-35.2); Mean Corpuscular Volume 85.9 fL (80.0-94.0); Mean Platelet Volume 9.2 fL (9.5-13.5); Monocytes Absolute Auto 0.9 10^3/uL (0.3-0.8); Monocytes Percent Auto 4.8 % (1.7-12.0); Neutrophils Absolute Auto 15.3 10^3/uL (1.4-6.5); Neutrophils Percent Auto 85.3 % (43.0-75.0); Platelet Count 280 10^3/uL (150-450); Red Blood Count 3.68 10^6/uL (4.70-6.10); Red Cell Distribution Width 15.2 % (11.0-15.0); White Blood Count 17.9 10^3/uL (4.0-11.0)
[2024-11-04 04:03] LABS: Alanine Aminotransferase 24 U/L (16-63); Albumin Globulin Ratio 0.6; Albumin Level 2.4 g/dL (3.4-5.0); Alkaline Phosphatase 75 U/L (46-116); Anion Gap 15.1; Aspartate Amino Transferase 9 U/L (15-37); BUN Creatinine Ratio 24.4; Bilirubin Total 0.2 mg/dL (0.2-1.0); C Reactive Protein 6.99 mg/dL (<=0.50); Calcium 9.1 mg/dL (8.5-10.1); Carbon Dioxide 24.3 mmol/L (21.0-32.0); Chloride 103 mmol/L (98-107); Estimated GFR (African America >60 (>=60 mL/min/1.73m^2); Estimated GFR (Non-African Ame >60 (>=60 mL/min/1.73m^2); Globulin 3.8 g/dL; Glucose 133 mg/dL (74-106); Magnesium 1.7 mg/dL (1.8-2.4); Potassium 4.4 mmol/L (3.5-5.1); Sodium 138 mmol/L (136-145); Total Protein 6.2 g/dL (6.4-8.2); Troponin I High Sensitivity 12.1 pg/mL (4.0-76.1)
[2024-11-04 08:14] LABS: Glucometer 118 mg/dL (74-106)
[2024-11-04 08:46] LABS: Lactate/Lactic Acid 4.2 mmol/L (0.4-2.0)
[2024-11-04] MEDS: ENSURE HP 237 ML LIQUID PO ×2 (08:52→21:22)
[2024-11-04] MEDS: GUAIFENESIN DM 600-30 MG 12 HR TAB 1 TAB PO (08:52)
[2024-11-04] MEDS: METOPROLOL SUCCINATE 25 MG TAB.ER.24H PO (08:53)
[2024-11-04] MEDS: MELOXICAM 7.5 MG TABLET PO (08:54)
[2024-11-04] MEDS: ENOXAPARIN SODIUM 40 MG/0.4 ML SYRINGE SUBQ (08:55)
[2024-11-04] MEDS: METHYLPREDNISOLONE SOD SUCC PF 125 MG/2 ML VIAL 60 MG IVP ×3 (08:55→21:23)
[2024-11-04] MEDS: LEVOFLOXACIN IN DEXTROSE 5 % 750 MG/150 ML PREMIX 100 MG IV (08:59)
[2024-11-04 09:54] LABS: Lactate/Lactic Acid 2.1 mmol/L (0.4-2.0)
--- NOTE | 2024-11-04 09:54 | P.HP_ITS ---
HPI H&P: HPI History of Present Illness Chief complaint: pneumonia recurrent syncope acute renal injury Narrative: Patient was seen evaluated and discharged from the hospital yesterday, he was admitted with meeting criteria for severe sepsis but he had no hypoxia he felt good with his breathing with ambulation and he was to discharge to home on oral antibiotics, Levaquin. 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 Patient found to have severe sepsis criteria again with positive lactate and leukocytosis, cough but not producing sputum, chest x-ray consistent with postobstructive pneumonia secondary to his lung cancer When I saw patient up in the medical surgical floor, resting comfortably bed was eating his breakfast, no specific complaint other than the cough, does have some shortness of breath with activity no further lightheaded spells since he has been admitted, orthostatic vitals reviewed, does have a drop in his systolic g reater than 20 mm of Opioid HPI Opioid Management Most Recent Pain and Opioid Data: Last Pain Scale 4 11/02/24, 22:41 Last Pain Assessment Today, 03:12 Last ORT Total Score 0 Today, 03:16 Last ORT Risk Category Low Risk Today, 03:16 Review of Systems ROS Status of ROS 10 or more systems reviewed and unremark able except as noted in history and below [facility] Medical History (Updated 11/04/24 @ 00:49 by Robert Jeffrey) Carpal tunnel syndrome ?G56.00 - Carpal tunnel syndrome, unspecified upper limb (ICD-10) Back pain ?M54.9 - Dorsalgia, unspecified (ICD-10) Arthritis ?M19.90 - Unspecified osteoarthritis, unspecified site (ICD-10) Snores ?R06.83 - Snoring (ICD-10) Sleep apnea ?G47.30 - Sleep apnea, unspecified (ICD-10) Influenza ?J11.1 - Influenza due to unidentified influenza virus with other respiratory manifestations (ICD-10) Right lower lobe lung mass ?R91.8 - Other nonspecific abnormal finding of lung field (ICD-10) Skin cancer ?C44.90 - Unspecified malignant neoplasm of skin, unspecified (ICD-10) Hypoxia ?R09.02 - Hypoxemia (ICD-10) 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 - Shortness of breath (ICD-10) ?U09.9 - Post covid-19 condition, unspecified (ICD-10) HTN (hypertension) ?I10 - Essential (primary) hypertension (ICD-10) KERR (dyspnea on exertion) ?R06.09 - Other forms of dyspnea (ICD-10) Pneumonia ?J18.9 - Pneumonia, unspecified organism (ICD-10) COVID-19 ?U07.1 - COVID-19 (ICD-10) History of COVID-19 ?Z86.16 - Personal history of COVID-19 (ICD-10) Surgical History (Updated 10/12/24 @ 12:46 by Macy Goodrich NP) H/O transurethral resection of prostate ?Z98.890 - Other specified postprocedural states (ICD-10) ?Z90.79 - Acquired absence of other genital organ(s) (ICD-10) History of colonoscopy ?Z98.890 - Other specified postprocedural states (ICD-10) History of myringotomy ?Z98.890 - Other specified postprocedural states (ICD-10) History of carpal tunnel release ?Z98.890 - Other specified postprocedural states (ICD-10) History of carpal tunnel surgery ?Z98.890 - Other specified postprocedural states (ICD-10) History of tonsillectomy ?Z90.89 - Acquired absence of other organs (ICD-10) Family History (Updated 10/06/24 @ 23:50 by Svetlana Kimball RN) Father Family history of myocardial infarction Son Family history of stroke Other Family history of CHF (congestive heart failure) Social History (Updated 11/04/24 @ 02:55 by Mary Ellen Mary) Within the past year, how often did you have a drink containing alcohol: never Score interpretation: A score less than 4 is consistent with normal alcohol consumption. Smoking status: Former smoker Non-prescribed substance use: denies use Previous occupational history: retired Highest level of school completed/degree received: Associate degree: occupational, technical, vocational program Are you now , , , , never or living with a partner: In a typical week, how many times do you talk on the telephone with family, friends, or neighbors: once per week How often do you get together with friends or relatives: once per week Little interest or pleasure in doing things: not at all Feeling down, depressed, or hopeless: not at all Do you think of yourself as: straight/heterosexual Gender Identity: male Meds Home Medications and Allergies Home Medications ?Medication ?Instructions ?Recorded ?Confirmed ?Type cyclobenzaprine 10 mg tablet 10 mg PO .qhs PRN muscle pain 10/06/24 11/04/24 History meloxicam 7.5 mg tablet 7.5 mg PO QDAY 10/06/2410/13 History acetaminophen 325 mg tablet 650 mg PO Q6H PRN pain 07/0811/04/24 History (Tylenol) dextromethorphan-guaifenesin 30 1 tab PO DAILY 5 11/04/24 History mg-600 mg tablet extended [id number] hr (Mucinex DM) fluticasone propionate 50 1 spray intranasal DAILY PRN nasal 10/12/24 11/04/24 History mcg/actuation nasal congestion spray,suspension (24 Hour Allergy Relief) gafbviymlubk-jftemluu-gkdebx 1 tab PO DAILY 10/12/24 0 11/04/24 History tablet (Multivitamin 50 Plus tablet) benzonatate 200 mg capsule 200 mg PO DAILY PRN cough 0 11/02/24 11/04/24 History meclizine 25 mg tablet 25 mg PO TID #20 tabs 11/04/24 Rx levofloxacin 750 mg tablet 750 mg PO Q24H 14 days #14 tabs 11/03/24 11/04/24 Rx metoprolol succinate 25 mg 25 mg PO .QD 11/03/2411/04 History tablet,extended release 24 hr Allergies Allergy/AdvReac Type Severity Reaction Status Date / Time codeine Allergy Severe Flushing Verified 11/03/24 21:40 sulfamethoxazole (From AdvReac Severe difficulty Verified 11/03/24 21:40 Bactrim) urinating trimethoprim (From Bactrim) AdvReac Severe Unknown Verified 11/03/24 21:40 Exam Constitutional Vital Signs, click to edit/add: Last Vital Signs Temp 97.6 F 11/04/24 08:04 Pulse 96 H 11/04/24 09:35 Resp 17 11/04/24 08:08 BP 148/76 H 11/04/24 09:35 Pulse Ox 96 11/04/24 08:08 O2 Del Method Room Air 11/04/24 03:06 Documenting provider has reviewed patient's vital signs: yes Common normals: no apparent distress Chest Common normals: inspection of chest normal Respiratory Common normals: normal respiratory effort and no retractions; not clear to ascultation bilaterally Auscultation: rhonchi (Rhonchi right lower lobe), diminished lung sounds and egophony (Right lower lobe) Cardio Common normals: regular rate and regular rhythm GI Common normals: Normal to inspection, nondistended, normoactive bowel sounds present and soft to palpation Extremity Common normals: normal to inspection, full ROM and normal capillary refill Results Labs Labs: Short CBC 11/03/24 11/04/24 Range/Units 21:20 03:37 WBC 18.4 H 17.9 H (4.0-11.0) 10^3/uL Hgb 11.9 L 10.3 L (14.0-18.0) g/dL Hct 37.4 L 31.6 L (42.0-54.0) % Plt Count 325 280 (150-450) 10^3/uL BMP 11/03/24 11/04/24 21:20 03:37 Sodium 137 138 Potassium 4.5 4.4 Chloride 98 103 Carbon Dioxide 24.8 24.3 BUN 23.0 H 19.0 H Creatinine 1.24 0.78 Glucose 155 H 133 H Calcium 9.9 9.1 Liver Function 11/03/24 11/04/24 Range/Units 21:20 03:37 Total Bilirubin 0.3 0.2 (0.2-1.0) mg/dL AST 10 L 9 L (15-37) U/L ALT 30 24 (16-63) U/L Alkaline Phosphatase 94 75 (46-116) U/L Albumin 3.0 L 2.4 L (3.4-5.0) g/dL Assessment and Plan Assessment and Plan (1) Pneumonia: (2) Leukocytosis: (3) Recurrent syncope: (4) Sepsis: (5) Lung cancer, lower lobe: (6) RLL pneumonia: (7) Sleep apnea: (8) HTN (hypertension): (9) KERR (dyspnea on exertion): (10) Pneumonia: Plan Admission findings: tachycardia, respiratory distress, leukocytosis with lactic acidosis consistent with severe sepsis secondary to right lower lobe pneumonia with postobstructive pneumonia and 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-patient discharged yest [facility] ICU is overall improved, still no hypoxia but with multiple syncopal episodes likely related to significant orthostatic hypotension as revealed by his orthostatic vital signs, patient will be admitted for IV antibiotics likely 3 to 4 days, cultures pending High-grade conduction delay with a baseline of right bundle branch block- discussed with cardiology, EKG done a couple days ago showed 1 episode of that he said no further episodes on his telemetry, he will be discharged to home with a Holter monitor discharge Iron deficiency anemia as well as immune deficiency anemia-monitor daily Hypomagnesemia-monitor daily Orthostatic hypotension-IV fluids, repeat fluid bolus Severe protein calorie malnutrition-diet supplement Hypertension-maintain home medications Admission status: Patient replaced inpatient status, he failed outpatient treatment as well as observational time. With previous admission, medically necessary treatment will span at least 2 midnights, inpatient status
[2024-11-04] MEDS: 0.9 % SODIUM CHLORIDE 1,000 ML 1000 ML IV (10:06)
[2024-11-04] MEDS: MAGNESIUM OXIDE 400 MG TABLET PO ×2 (10:06→21:23)
[2024-11-04] MEDS: PIPERACILLIN SODIUM/TAZOBACTAM 3.375 GM in 0.9 % SODIUM CHLORIDE 50 ML IV ×2 (11:20→19:49)
[2024-11-04] MEDS: IPRATROPIUM/ALBUTEROL SULFATE 3 ML AMPUL.NEB IH ×3 (11:33→22:00)
[2024-11-04 13:04] LABS: Lactate/Lactic Acid 2.4 mmol/L (0.4-2.0)
[2024-11-04] MEDS: MECLIZINE HCL 12.5 MG TABLET 25 MG PO ×2 (13:32→21:23)
[2024-11-05] VITALS (19 sets, daily range): BP systolic 130–159; BP diastolic 70–94; PULSE 67–118; TEMP 36.6–37.1; O2SAT 93–96
[2024-11-05] MEDS: METHYLPREDNISOLONE SOD SUCC PF 125 MG/2 ML VIAL 60 MG IVP ×3 (04:53→21:24)
[2024-11-05] MEDS: PIPERACILLIN SODIUM/TAZOBACTAM 3.375 GM in 0.9 % SODIUM CHLORIDE 50 ML IV ×3 (04:53→21:24)
[2024-11-05] MEDS: 0.9 % SODIUM CHLORIDE 1,000 ML 75 ML IV (04:53)
[2024-11-05] MEDS: MECLIZINE HCL 12.5 MG TABLET 25 MG PO ×3 (05:00→21:25)
[2024-11-05] MEDS: IPRATROPIUM/ALBUTEROL SULFATE 3 ML AMPUL.NEB IH (05:42)
[2024-11-05 06:19] LABS: Hematocrit 32.7 % (42.0-54.0); Hemoglobin 10.4 g/dL (14.0-18.0); Mean Corpuscular HGB Conc 31.8 g/dL (29.9-35.2); Mean Corpuscular Hemoglobin 27.4 pg (25.9-34.0); Mean Corpuscular Volume 86.1 fL (80.0-94.0); Mean Platelet Volume 9.2 fL (9.5-13.5); Platelet Count 272 10^3/uL (150-450); Red Cell Distribution Width 15.5 % (11.0-15.0); White Blood Count 17.7 10^3/uL (4.0-11.0)
[2024-11-05 06:31] LABS: Alanine Aminotransferase 24 U/L (16-63); Albumin Globulin Ratio 0.6; Albumin Level 2.3 g/dL (3.4-5.0); Alkaline Phosphatase 72 U/L (46-116); Anion Gap 11.4; Aspartate Amino Transferase 7 U/L (15-37); BUN Creatinine Ratio 27.5; Bilirubin Total 0.2 mg/dL (0.2-1.0); Calcium 9.3 mg/dL (8.5-10.1); Carbon Dioxide 26.8 mmol/L (21.0-32.0); Chloride 104 mmol/L (98-107); Estimated GFR (African America >60 (>=60 mL/min/1.73m^2); Estimated GFR (Non-African Ame >60 (>=60 mL/min/1.73m^2); Globulin 3.7 g/dL; Glucose 145 mg/dL (74-106); Magnesium 1.7 mg/dL (1.8-2.4); Potassium 4.2 mmol/L (3.5-5.1); Sodium 138 mmol/L (136-145)
[2024-11-05 07:08] LABS: Band Neutrophils Absolute 0.2 10^3/uL (0.0-0.3); Lymphocytes Absolute Manual 0.88 10^3/uL (1.20-3.80); Monocytes Absolute Manual 0.35 10^3/uL (0.30-0.80); Segmented Neut Absolute Manual 16.28 10^3/uL (1.4-6.5)
[2024-11-05] MEDS: LEVOFLOXACIN IN DEXTROSE 5 % 750 MG/150 ML PREMIX 100 MG IV (09:42)
[2024-11-05] MEDS: MAGNESIUM OXIDE 400 MG TABLET PO ×3 (09:42→21:25)
[2024-11-05] MEDS: GUAIFENESIN DM 600-30 MG 12 HR TAB 1 TAB PO (09:42)
[2024-11-05] MEDS: MELOXICAM 7.5 MG TABLET PO (09:42)
--- NOTE | 2024-11-05 09:51 | P.PN_ITS ---
Progress Note: Subjective Subjective Interval history: No new complaints this morning, less cough throughout the evaluation Exam Constitutional Vital Signs, click to edit/add: Last Vital Signs Temp 98.7 F 11/05/24 08:15 Pulse 101 H 11/05/24 08:18 Resp 16 11/05/24 08:15 BP 159/83 H 11/05/24 08:18 Pulse Ox 96 11/05/24 08:15 O2 Del Method Room Air 11/05/24 08:15 Documenting provider has reviewed patient's vital signs: yes Common normals: no apparent distress Chest Common normals: inspection of chest normal Respiratory Common normals: normal respiratory effort and no retractions; not clear to ascultation bilaterally Auscultation: rhonchi (Minimal rhonchi much improved) and diminished lung sounds; no egophony (Right lower lobe egophony resolved) Cardio Common normals: regular rate and regular rhythm GI Common normals: Normal to inspection, nondistended, normoactive bowel sounds present and soft to palpation Extremity Common normals: normal to inspection, full ROM and normal capillary refill Progress Note: Objective Labs Labs: Short CBC 11/05/24 Range/Units 05:46 WBC 17.7 H (4.0-11.0) 10^3/uL Hgb 10.4 L (14.0-18.0) g/dL Hct 32.7 L (42.0-54.0) % Plt Count 272 (150-450) 10^3/uL BMP 11/05/24 05:46 Sodium 138 Potassium 4.2 Chloride 104 Carbon Dioxide 26.8 BUN 19.0 H Creatinine 0.69 L Glucose 145 H Calcium 9.3 Liver Function 11/05/24 Range/Units 05:46 Total Bilirubin 0.2 (0.2-1.0) mg/dL AST 7 L (15-37) U/L ALT 24 (16-63) U/L Alkaline Phosphatase 72 (46-116) U/L Albumin 2.3 L (3.4-5.0) g/dL Progress Note: A&P Assessment and Plan (1) Leukocytosis: (2) Recurrent syncope: (3) Lung cancer, lower lobe: (4) RLL pneumonia: (5) Sleep apnea: (6) HTN (hypertension): (7) KERR (dyspnea on exertion): (8) Respiratory distress: (9) Lactic acidosis: (10) Severe sepsis: (11) Postobstructive pneumonia: (12) Immune deficiency disorder: (13) Squamous cell lung cancer: (14) Intraventricular conduction delay: (15) Right bundle branch block: (16) Orthostatic hypotension: (17) Iron deficiency anemia: (18) Hypomagnesemia: (19) Severe protein-calorie malnutrition: Plan Admission findings: tachycardia, respiratory distress, leukocytosis with lactic acidosis consistent with severe sepsis secondary to right lower lobe pneumonia with postobstructive pneumonia and 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-maintain current IV antibiotics, cultures are still pending, overall improved with improvement in his orthostatic hypotension High-grade conduction delay with a baseline of right bundle branch block- discussed with cardiology, EKG done a couple days ago showed 1 episode of that he said no further episodes on his telemetry, he will be discharged to home with a Holter monitor discharge Iron deficiency anemia as well as immune deficiency anemia-monitor daily Hypomagnesemia-monitor daily-low but stable increased dosing Orthostatic hypotension-saline lock today Severe protein calorie malnutrition-diet supplement-maintain Hypertension-maintain home medications Admission status: Patient replaced inpatient status, he failed outpatient treatment as well as observational time. With previous admission, medically necessary treatment will span at least 2 midnights, inpatient status ?
[2024-11-05] MEDS: ENSURE HP 237 ML LIQUID PO (21:25)
[2024-11-06] VITALS (10 sets, daily range): BP systolic 123–148; BP diastolic 67–80; PULSE 63–116; TEMP 36.1–36.8; O2SAT 91–120
[2024-11-06] MEDS: MAGNESIUM OXIDE 400 MG TABLET PO (05:44)
[2024-11-06] MEDS: PIPERACILLIN SODIUM/TAZOBACTAM 3.375 GM in 0.9 % SODIUM CHLORIDE 50 ML IV (05:44)
[2024-11-06] MEDS: MECLIZINE HCL 12.5 MG TABLET 25 MG PO (05:44)
[2024-11-06] MEDS: METHYLPREDNISOLONE SOD SUCC PF 125 MG/2 ML VIAL 60 MG IVP (05:44)
--- NOTE | 2024-11-06 07:00 | XR_ITS ---
The [address] [address] Patient Name: JATIN KOCH MRN: [id number] date: 1960 Sex: M Assigned Patient Location: [place] Current Patient Location: Accession/Order Number: [id number] Exam Date: 11/06/2024 12:21 Report Date: 11/06/2024 12:22 At the request of: MANDO MATA MD Procedure: XR chest 2V XR chest 2V 11/06/2024 6:12 AM SIGNS AND SYMPTOMS: ^follow up PNA PROTOCOL: Frontal and lateral radiographs of the chest COMPARISON: 11/03/2024 FINDINGS: The trachea is midline. The heart and mediastinal structures are within normal limits. Similar right hilar masslike structure is noted with airspace opacities along the right heart border. The bony thorax is intact. XR/XR chest 2V IMPRESSION: Similar right hilar masslike structure is noted with airspace opacities along the right heart border. Impression dictated by: Jose Antonio Lainez M.D. 11/06/2024 12:22 PM Dictation Location: [place] [address] Electronically authenticated by: [id number] Y Date: 11/06/2024 12:22
[2024-11-06 07:20] LABS: Hematocrit 36.8 % (42.0-54.0); Hemoglobin 11.7 g/dL (14.0-18.0); Mean Corpuscular HGB Conc 31.8 g/dL (29.9-35.2); Mean Corpuscular Hemoglobin 27.3 pg (25.9-34.0); Mean Corpuscular Volume 85.8 fL (80.0-94.0); Mean Platelet Volume 9.2 fL (9.5-13.5); Platelet Count 394 10^3/uL (150-450); Red Blood Count 4.29 10^6/uL (4.70-6.10); Red Cell Distribution Width 15.9 % (11.0-15.0); White Blood Count 25.6 10^3/uL (4.0-11.0)
[2024-11-06 07:24] LABS: Alanine Aminotransferase 47 U/L (16-63); Albumin Globulin Ratio 0.7; Albumin Level 2.6 g/dL (3.4-5.0); Alkaline Phosphatase 72 U/L (46-116); Anion Gap 16.5; Aspartate Amino Transferase 20 U/L (15-37); BUN Creatinine Ratio 34.7; Bilirubin Total 0.2 mg/dL (0.2-1.0); Calcium 9.3 mg/dL (8.5-10.1); Carbon Dioxide 25.6 mmol/L (21.0-32.0); Chloride 103 mmol/L (98-107); Estimated GFR (African America >60 (>=60 mL/min/1.73m^2); Estimated GFR (Non-African Ame >60 (>=60 mL/min/1.73m^2); Globulin 3.9 g/dL; Glucose 134 mg/dL (74-106); Magnesium 1.8 mg/dL (1.8-2.4); Potassium 4.1 mmol/L (3.5-5.1); Sodium 141 mmol/L (136-145); Total Protein 6.5 g/dL (6.4-8.2)
[2024-11-06 08:01] LABS: Lymphocytes Absolute Manual 2.04 10^3/uL (1.20-3.80); Segmented Neut Absolute Manual 21.76 10^3/uL (1.4-6.5)
[2024-11-06 08:02] LABS: Anisocytosis 1+; Monocytes Absolute Manual 0.51 10^3/uL (0.30-0.80)
[2024-11-06] MEDS: LEVOFLOXACIN IN DEXTROSE 5 % 750 MG/150 ML PREMIX 100 MG IV (08:48)
[2024-11-06] MEDS: GUAIFENESIN DM 600-30 MG 12 HR TAB 1 TAB PO (08:48)
[2024-11-06] MEDS: ENSURE HP 237 ML LIQUID PO (08:49)
[2024-11-06] MEDS: MELOXICAM 7.5 MG TABLET PO (08:49)
[2024-11-06] MEDS: ENOXAPARIN SODIUM 40 MG/0.4 ML SYRINGE SUBQ (08:49)
--- NOTE | 2024-11-06 13:59 | PM.DS1 ---
DS: Providers Provider Date of admission: 11/04/24 02:36 Primary care physician: CARLOS COLLINS Consults: 11/04/24 08:04 Consult to Pharmacy Routine Consulting Provider: Reason for consultation: Please [place] me when Med Rec is Updated Has provider been notified: No DS: Diagnosis Discharge Diagnosis (1) Postobstructive pneumonia: (2) Severe sepsis: (3) Orthostatic hypotension: (4) Squamous cell lung cancer: (5) Hypomagnesemia: (6) Iron deficiency anemia: (7) Intraventricular conduction delay: (8) Right bundle branch block: (9) Severe protein-calorie malnutrition: (10) Immune deficiency disorder: DS: Summary Hospital Course Hospital Course: Reason for admission: See ER note and H&P for details. 64 y/o male recently diagnosed with lung cancer admitted after syncope. Admitted 11/03-11/05 with pneumonia. Once home very lightheaded and felt like would pass out. Did not start antibiotics or steroids. Chest x-ray still shows pneumonia. In ER and started IV fluids. Noted orthostatic hypotension and worsening renal function. Admitted for treatment. Hospital course: Started levaquin and zosyn. Started solumedrol and resumed home medication. Decreased metoprolol after noticing conduction delay on EKG. Gradually improved. Less SOB. Continued to have orthostatis with position changes but not as severe. Ambulating well. Discharged home in stable condition. Follow up with specialists as scheduled. Holter monitor placed prior to discharge. Will start levaquin and prednisone as instructed last discharge. Time Spent with Patient Time attestation: Total time spent providing and/or coordinating discharge services: Time spent: greater than 30 minutes Exam Constitutional Vital Signs, click to edit/add: Last Vital Signs Temp 98.1 F 11/06/24 12:00 Pulse 116 H 11/06/24 12:00 Resp 18 11/06/24 12:00 BP 136/78 11/06/24 12:00 Pulse Ox 95 11/06/24 12:00 O2 Del Method Room Air 11/06/24 12:00 Documenting provider has reviewed patient's vital signs: yes Common normals: no apparent distress, oriented x3 and alert HENMT Common normals: normocephalic Eye Common normals: PERRL and EOMs intact bilaterally Respiratory Common normals: normal respiratory effort and clear to auscultation bilaterally Cardio Common normals: regular rate, regular rhythm, no gallops, no murmurs and no rub GI Common normals: Normal to inspection, nondistended, normoactive bowel sounds present and non-tender Extremity Common normals: no pedal edema DS: Data Data Completed and Pending Labs on day of discharge: Labs from last 24 hours 11/06/24 06:26 WBC 25.6 H RBC 4.29 L Hgb 11.7 L Hct 36.8 L MCV 85.8 MCH 27.3 MCHC 31.8 RDW 15.9 H Plt Count 394 MPV 9.2 L Seg Neuts % (Manual) 85.0 H Band Neutrophils % 4.0 Lymphocytes % (Manual) 8.0 L Monocytes % (Manual) 2.0 Eosinophils % (Manual) 0.0 L Basophils % (Manual) 0.0 L Neutrophils # (Manual) 21.76 H Band Neutrophils # 1.0 H Lymphocytes # (Manual) 2.04 Monocytes # (Manual) 0.51 Eosinophils # (Manual) 0.00 Basophils # (Manual) 0.00 Anisocytosis 1+ Sodium 141 Potassium 4.1 Chloride 103 Carbon Dioxide 25.6 Anion Gap 16.5 BUN 26.0 H Creatinine 0.75 Est GFR ( Amer) >60 Est GFR (Non-Af Amer) >60 BUN/Creatinine Ratio 34.7 Glucose 134 H Calcium 9.3 Magnesium 1.8 Total Bilirubin 0.2 AST 20 ALT 47 Alkaline Phosphatase 72 Total Protein 6.5 Albumin 2.6 L Globulin 3.9 Albumin/Globulin Ratio 0.7 Discharge Plan Discharge Disposition: Home, Self-Care Discharge Medications: New prednisone 10 mg tablets,dose pack 10 mg PO DAILY Qty: 39 0RF Rx Instructions: 6 PO daily x 3 days, then 4 PO daily x 3 days, then 2 PO daily x 3 days, then 1 PO daily x 3 days Continued cyclobenzaprine 10 mg tablet 10 mg PO .qhs PRN (Reason: muscle pain) meloxicam 7.5 mg tablet 7.5 mg PO QDAY Mucinex DM 30-600 mg tablet extended release 12 hr 1 tab PO DAILY Multivitamin 50 Plus Tablet 1 tab PO DAILY acetaminophen [Tylenol] 325 mg tablet 650 mg PO Q6H PRN (Reason: pain) fluticasone propionate [24 Hour Allergy Relief] 50 mcg/actuation spray,suspension 1 spray intranasal DAILY PRN (Reason: nasal congestion) Rx Instructions: administer into each nostril metoprolol succinate 25 mg tablet extended release 24 hr 25 mg PO .QD levofloxacin 750 mg tablet 750 mg PO Q24H 14 Days Qty: 14 0RF benzonatate 200 mg capsule 200 mg PO DAILY PRN (Reason: cough) meclizine 25 mg tablet 25 mg PO TID Qty: 20 0RF Activity: increase activity as tolerated Diet: advance to your usual diet Print Language: Haitian Patient Instructions: Near Syncope (GEN), Dizziness (GEN) Forms: Portal Instructions Follow Up Appointments: Keep scheduled appointments, follow up with primary care provider within one week, call to make appointment
--- NOTE | 2024-11-07 16:27 | CM.DCFOLLOWU ---
1st attempt 11/07/24, no answer
[2024-11-09 08:59] LABS: Glucometer 176 mg/dL (74-106)
== END 2024-11-06 14:05 | disposition home or self-care (01) | DRG 871 ==
LOC: ER 11-04 00:49 → MS 11-04 02:44
PROVIDERS: Registered Nurse; Admitting Provider Family Medicine; Emergency Provider Emergency Medicine; PCP Nurse Practitioner; Visit Provider Family Medicine
DX: A41.9 Sepsis, unspecified organism (principal); E43 Unspecified severe protein-calorie malnutrition; J18.9 Pneumonia, unspecified organism; C34.90 Malignant neoplasm of unspecified part of unspecified bronchus or lung; N17.9 Acute kidney failure, unspecified; D84.9 Immunodeficiency, unspecified; I45.89 Other specified conduction disorders; Z86.16 Personal history of COVID-19; I10 Essential (primary) hypertension; Z87.891 Personal history of nicotine dependence; G47.30 Sleep apnea, unspecified; R06.09 Other forms of dyspnea; R65.20 Severe sepsis without septic shock; D50.9 Iron deficiency anemia, unspecified; I95.1 Orthostatic hypotension; D64.89 Other specified anemias; E83.42 Hypomagnesemia; R06.03 Acute respiratory distress; I45.10 Unspecified right bundle-branch block; Z68.31 Body mass index [BMI] 31.0-31.9, adult
CPT/HCPCS: 36415; 71045; 71046; 80053; 82948; 83605; 83735; 83880; 84100; 84484; 85007; 85025; 85027; 86140; 87040; 87070; 87205; 93005; 93246; 94640; 94667; 94668; 94761; 96361; 96365; 96367; 99285; J0696; J1650; J2543; J2919

== ENCOUNTER 2024-11-13 08:37 | Outpatient (OUT) | payer BC, SELFPAY ==
--- OUTSIDE RECORDS SUMMARY | 2024-10-25 04:30 | XMS_ITS ---
Author Organization [facility] in [place] Address [address] [place] [address] Care Team Providers Care Clamp Remover Name Role Phone Brandi Fiore Primary Care Provider Alina Johnson [phone] REASON FOR VISIT -3 Month Follow Up- discuss depression and weight loss per Encounters Encounter Location Date Provider Diagnosis [address] [address] 10/25/2024 Alina Ragland Plan Of Treatment No Information Progress Notes * Frantz ROA IIDOB:[birth year] (64 yo M)Acc No.[id number]:10/25/2024 UNLOCKED PROGRESS NOTE Established Patient: Mike DAVILA Frantz Tubbs II Provider: Hugh Ragland MD :1960 A ge:63 Y S ex:Male Date:10/25/2024 Address:[address] [place] [address] Pcp:JOSTIN Garcia Subjective: * Chief Complaints: * 1 . -3 Month Follow Up- discuss depression and weight loss per . * Medical History: Objective: * Vitals: Assessment: Plan: * Treatment: * * Electronic signature of Eric Ragland MD, [id number] on 11/13/2024 at 08:40 AM EDT Sign off status: Pending Visit Status: C ANC (Cancelled) * Provider: Hugh Ragland MD Date: 0 10/25/2024 Generated for Marco renteria/Aicha/Ab on: 0 11/13/2024 08:40 AM ALEJANDROT
--- OUTSIDE RECORDS SUMMARY | 2024-10-30 06:00 | XMS_ITS ---
Author Organization [facility] in [place] Address [address] [place] [address] Care Team Providers Care Copy Lathe Tender Name Role Phone Brandi Fiore Primary Care Provider Yordan Mclain Unavailable [phone] REASON FOR VISIT 2w F/U - Bronchoscopy Encounters Encounter Location Date Provider Diagnosis Pulmonary Medicine [place] [address] [place] [address] 10/30/2024 Yordan Feliciano Plan Of Treatment No Information Progress Notes * Frantz ROA IIDOB:[birth year] (64 yo M)Acc No.[id number]:10/30/2024 UNLOCKED PROGRESS NOTE Follow Up Patient: Mike DAVILA Frantz Tubbs II Provider: Akosua Feliciano DO :1960 A ge:63 Y S ex:Male Date:10/30/2024 Address:[address] [place], [place] [id number] Pcp:JOSTIN Garcia Subjective: * Chief Complaints: * 1 . 2w F/U - Bronchoscopy. * Medical History: Objective: * Vitals: Assessment: Plan: * Treatment: * * Electronic signature of Mignon Feliciano DO on 11/13/2024 at 08:42 AM EDT Sign off status: Pending Visit Status: R /S (Rescheduled) * Provider: Akosua Feliciano DO Date: 0 10/30/2024 Generated for Marco renteria/Aicha/Ab on: 0 11/13/2024 08:42 AM EDT
--- OUTSIDE RECORDS SUMMARY | 2024-10-30 14:30 | XMS_ITS | Encounter Summary ---
Author Organization [facility] Address [address] [place], [place] [address] Care Team Providers Care Surgery Specialist Name Role Phone Brandi Alvarado APRN.[facility] Primary Care Provider [phone] Source Comments In the event this information is protected by the Federal Confidentiality of Alcohol and Drug AbusePatient Records regulations: The Federal rules restrict any use of the information to criminally investigate or prosecute any alcohol or drug abuse patient.[facility] Reason for Visit * Reason Comments Nutrition Telephone Encounter Details Date Type Department Care Team (Late st Contact Info) Description 10/30/2024 2:30 PM EDT Education Nutrition Therapy [address] [place] [address] [place] [address] Nutrition Telephone Social History Tobacco Use Types [...] is lower risk 9 10/27/2024 Data from: https://www.neighborhoodatlas.[facility]/. Last address used for calculation [address] 10/27/2024 Sex and Gender Information Value Date Recorded Sex Assigned at Not on file Legal Sex Male 8:04 AM EST Gender Identity Not on file Sexual Orientation Not on file documented as of this encounter Progress Notes * Bee Pabon, RD - 10/30/2024 2:39 PM EDT [facility] Nutrition Therapy: Virtual Consult - Initial Assessment I have communicated my name and active licensure. The patient???s identity and physical location were verified at the time of this visit. Either the patient or their legal pharmacy sales representative has been informed of the risks [...] Department Care Team (Latest Contact Info) Description 11/15/2024 11:00 AM EDT Office Visit Pulmonary Medicine [address] [address] Alexandre Robertson MD [address] [place] [address] New Consultation 11/15/2024 12:10 PM EDT Procedure Cardiology [address] [place] [id number] PreOp Testing 11/17/2024 1:00 PM EDT Office Visit Radiation Oncology [address] [place] [address] [place] [address] Ezra Moreno MD [address] [place] [address] [place] [address] Consult dx Lung cancer 11/17/2024 2:00 PM EDT Visit (SP) Office Hematology/Oncology [address] [facility] [place] [address] Kvng Perez MD [address] [facility] [place] [address] 2 week follow up 11/20/2024 11:30 AM EDT Hospital Encounter Admitting [address] [address] Alexandre Robertson MD [address] [place] [address] 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] 11/20/2024 11:30 AM EDT - 11/20/2024 1:30 PM EDT Surgery Admitting [address] [address] Alexandre Robertson MD [address] [place] [address] BRONCHOSCOPY FLEXIBLE ADULT 11/30/2024 3:30 PM EDT [facility] Nutrition Therapy [address] [place] [address] Bee Pabon, JAMIL [address] [place] [address] Follow up lung/ severe weight loss Scheduled Procedures Name Priority Associated Diagnoses Date/Ti me BRONCHOSCOPY FLEXIBLE ADULT Bronchiolar disease 11/20/2024 11:30 AM EDT documented as of this encounter Visit Diagnoses Diagnosis Malignant neoplasm of lower lobe of right lung (HCC) Bronchiolar disease Other diseases of trachea and bronchus documented in this encounter Care Teams Surgery Specialist Relationship Specialty Start Date End Date Brandi Alvarado, MANAGER HIV.METAL BONDING HELPER [address] [place] [address] PCP - General Nurse Practitioner 10/27/24 documented as of this encounter
--- OUTSIDE RECORDS SUMMARY | 2024-11-07 09:00 | XMS_ITS ---
Author Organization [facility] in [place] Address [address] [place] [address] Care Team Providers Care Commissioner Of Internal Revenue Name Role Phone Brandi Fiore Primary Care Provider Unavail able Yordan Feliciano Unavailable [phone] Allergies Allergen (clinical drug ingredient) Drug/Non Drug [...] retired. Quit smoking in 2017 Vital Signs Temperature 96.8 degrees Fahrenheit 11/08/19 25 Blood pressure systolic 130 mm Hg 11/08/19 25 Blood pressure diastolic 77 mm Hg 025 Heart Rate 92 /min 11/07/2024 Respiratory Rate 18 /min 11/07/2024 Height 68 in 11/07/2024 Weight 210.8 lbs 11/07/2024 BMI 32.05 kg/m2 11/07/2024 Oximetry 95 % 11/07/2024 Encounters Encounter Location Date Provider Diagnosis Pulmonary Medicine [address] [address] 11/07/2024 Yordan Feliciano Squamous cell carcinoma of [...] maintenance durvalumab. He has been referred to [facility] interventional pulmonology in an attempt to [...] maintenance durvalumab. He has been referred to [facility] interventional pulmonology in an attempt to [...] * Frantz ROA IIDOB:[birth year] (64 yo M)Acc No.[id number]:11/07/2024 Follow Up Patient: Mike Frantz DAVILA II Provider: Akosua Feliciano DO :1960 A ge:64 Y S ex:Male Date:11/07/2024 Address:[facility] [id number] Pcp:JOSTIN Garcia Check In:12:54 PM ESTCheck O ut:02:02 PM EST Subjective: * Chief Complaints: * 2 w F/U - Hemoptysis * HPI: G eneral: Patient was admitted 11/03-11/06 for syncope, treated with postobstructive pneumonia and severe sepsis. He is feeling better today. Reviewed oncology note - saw Dr. Perez on 10/27/2024 who referred him to [facility] interventional pulmonology. Plans are for chemoradiation. MRI 2024 was negative for any brain mets. Breathing is okay today. MA Intake Comments:. Patient presents for a follow-up after being seen by [facility] Oncology. Patient reports being discharged from [facility] yesterday due to his breathing. Patient denies [...] iscellaneous: O ccupation O ccupation: R etired /[employer] Pets: Dog. D rugs/Alcohol: D rugs H [...] as needed Inhalation every 4 hrs Breztri Aerosphere(Olwhlrs-Bshuzypbblc-Uhevoexnny) 160-9-4.8 MCG/ACT Aerosol 2 puffs Inhalation Twice a day Not-Taking/PRN Albuterol Sulfate HFA 108 (90 Base) MCG/ACT Aerosol Solution 1 puff as needed Inhalation every 4 hrs Not-Taking/PRN Breztri Aerosphere(Syalwok-Zqgpqltqfne-Qccntocpfs) 160-9-4.8 MCG/ACT Aerosol 2 puffs Inhalation Twice [...] Education on smoking effects provided?11/07/2024 Former B [place] ACTION PLAN Above Normal BMI Follow-up D ietary management education, guidance, and counseling * Follow Up: P RN * * Sign off status: Completed Visit Status: C HK (Check Out) true * Provider: Akosua Feliciano DO Date: 0 11/07/2024 Generated for Marco renteria/Aicha/Maria Citting on: 0 11/13/2024 08:42 AM EDT History and Physical Notes * HPI (History of Present Illness) Category Sub-Category Detail Notes Category Not es General Patient present s for a follow-up after being seen by [facility]. Patient reports being discharged from [facility] yesterday due to his breathing. Patient denies any complaints with his breathing today. Patient was discharged home on Prednisone & Levaquin. Examination Category Sub-Category Detail Notes Category Not es Exam GENERAL APPEARANCE: Appears tired Skin Normal Mouth [place] and moist Trachea Midline Chest Normal Respiratory Normal Movements, Ef fort Normal Auscultation RLL diminished, lung s are clear of any wheezes, crackles, or rhonchi Cardiac Regular rate & rhyth m Gastrointestinal Normal Vascular No edema Musculoskeletal Normal posture Neurological Focal, intact Psychiatric Alert and oriented x 3 Mentation/Cognition Normal Oropharynx Mallampati Class III
--- OUTSIDE RECORDS SUMMARY | 2024-11-08 14:30 | XMS_ITS | Encounter Summary ---
Author Organization [facility] Address [id number] [address] 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, RECENTLY DIAGNOSED WITH LUNG CANCER RIGHT LOWER LOBE, SCHED W/ Encounter Details Date Type Department Care Team (Late st Contact Info) Description 11/08/2024 2:30 PM EDT Office Visit [facility] [address] [place] [id number] Maritza Best MD [address] [place], [place] [id number] Syncope, unspecified syncope type (Primary Dx) Social History Tobacco Use Types Packs/Day Years Used Date Smoking Tobacco: Former Cigarettes Q uit: 01/04/2017 Smokeless Tobacco: Never Tobacco Cessation:Counseling Given: Not Answered Alcohol Use Standard Drinks/Week Comments Yes 0 (1 standard drink = 0.6 oz pur e alcohol) [facility] Utilities Answer Date Recorded In the past 12 months has [employer] electric, gas, oil, or water company threatened to shut off services in your home? No 11/09/2024 AUDIT-C Answer Date Recorded Q1: How often do you have a drink containing alc ohol? Monthly or less 11/09/2024 Q2: How many drinks containi ng alcohol do you have on a typical day when you are drinking? 1 or 2 11/09/2024 Q3: How often do you have si x or more drinks on one occasion? Never 11/09/2024 PHQ-2 Answer Date Recorded Total Score 0 11/09/2024 PRAPARE - Transportation Answer Date Re corded In the past 12 months, has l ack of transportation kept you from medical appointments or from getting medications? No 10/13 In the past 12 months, has l ack of transportation kept you from meetings, work, or from getting things needed for daily living? No 11/09/2024 Housing Instability Answer Date Recorde d Are you worried or concerned that in the next two months you may not have stable housing that you own, rent or stay in as a part of a household? No 11/09/2024 Childcare Answer Date Recorded Childcare Unknown 11/23/2018 Employment Answer Date Recorded Employment Unknown 11/23/2018 Hunger Screening Answer Date Recorded Within the past 12 months we worried whether our food would run out before we got money to buy more. Never True 11/09/2024 Within the past 12 months th e food we bought just didn't last and we didn't have money to get more. Never True 11/09/2024 Purpose - Life Answer Date Recorded Purpose and direction in life Unknown Sex and Gender Information Value Date Recorded Sex Assigned at Not on file Legal Sex Male 11:50 AM EDT Gender Identity Not on file Sexual Orientation Not on file documented as of this encounter Last Filed Vital Signs Vital Sign Reading Time Taken Comments Blood Pressure 104/72 11/08/2024 2:40 PM EDT Pulse 105 11/08/2024 2:40 PM EDT Temperature - - Respiratory Rate - - Oxygen Saturation 95% 11/08/2024 2:40 PM EDT Inhaled Oxygen Concentration - - Weight 94.8 kg (209 lb) 11/08/2024 2:40 PM EDT Height 172.7 cm (5' 8 ) 11/08/2024 2:40 PM EDT Body Mass Index 31.78 11/08/2024 2:40 PM EDT documented in this encounter Progress Notes * Maritza Best MD - 11/08/2024 2:30 PM EDT Frantz Roa II Date of visit: 11/08/2024 Date of : 1960 Age: 64 y.o. There is no problem list on file for this patient. Allergies Allergen Reactions Bactrim [Sulfamethoxazole-Trimethoprim] Codeine diaphoresis Current Outpatient Medications Medication Sig Dispense Refill acetaminophen (TYLENOL EXTRA STRENGTH) 500 mg tablet Take 1 tablet (500 mg total) by mouth every 6 (six) hours as needed for pain. benzonatate (TESSALON PERLES) 200 mg capsule Take 1 capsule (200 mg total) by mouth 3 (three) timesa day as needed for cough. cetirizine (ZyrTEC) 10 mg tablet Take 1 tablet (10 mg total) by mouth in the morning. cyclobenzaprine (FLEXERIL) 10 mg tablet Take 1 tablet (10 mg total) by mouth once daily at bedtime. levoFLOXacin (LEVAQUIN) 750 mg tablet Take 1 tablet (750 mg total) by mouth in the morning. meclizine (ANTIVERT) 25 mg tablet Chew 1 tablet (25 mg total) and swallow 3 (three) times a day as needed for dizziness. meloxicam (MOBIC) 7.5 mg tablet Take 1 tablet (7.5 mg total) by mouth in the morning. metoprolol succinate XL (TOPROL XL) 25 mg 24 hr tablet Take 1 tablet (25 mg total) by mouth in the morning. multivit-min/folic/vit K/lycop (MEN'S 50 PLUS MULTIVITAMIN ORAL) Take by mouth in the morning. predniSONE (DELTASONE) 10 mg tablet Take 1 tablet (10 mg total) by mouth in the morning. Tapered dose. ibuprofen (ADVIL,MOTRIN) 200 mg tablet Take 200 mg by mouth every 6 (six) hours as needed for pain.(Patient not taking: Reported on 11/08/2024) PEPSIN/GA/OXBILE/PANCREAT/BET (RPDZDT-NXS-VK SSTJ-ESJ-USO-PAP ORAL) Take by mouth. (Patient not taking: Reported on 11/08/2024) tamsulosin (FLOMAX) 0.4 mg capsule,extended release 24hr Take 1 capsule (0.4 mg total) by mouth once daily for 90 days. 90 capsule 0 varenicline (CHANTIX CONTINUING MONTH BOX) 1 mg tablet Take 1 tablet (1 mg total) by mouth 2 (two) times a day. Take with full glass of water. (Patient not taking: Reported on 11/08/2024) 56 tablet 3 No current facility-administered medications for this visit. 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 With involvement of the lymph node, history of diverticulitis, Patient was seen at [facility] following syncope hardware with about 40 was symptomatic had EKG shown high-grade AV block patient was sent home and the noted heart rate about 29 by pulse oximetry patient was brought back to the emergency room the why he was on registration he almost passed out again and he was admitted with diagnosis of pneumonia and treated then discharge patient self-referred himself to primary care cardiology when I saw him he reports lightheadedness on detail of the syncope episode and bradycardia EKG were reviewed with electrophysiology Dr. Ventura also discussed with him about patient being asymptomatic and need for pacemaker on also scheduled for broncho scopy planned for surgery no recent nuclear stress test or echo EKG shows right bundle branch blocklast 2D echo was December 2016 which was normal LV function with mild aortic stenosis Past Medical History: Diagnosis Date Arthritis Hypertension Lung cancer (CMS-HCC) No data recorded No data recorded No data recorded Past Surgical History: Procedure Laterality Date SKIN BIOPSY basal cell carcinoma removed from left gnosticist TONSILLECTOMY TURP / TRANSURETHRAL INCISION / DRAINAGE PROSTATE 2018 TYMPANOSTOMY TUBE PLACEMENT Family History Problem Relation Age of Onset Arthritis Mother Heart disease Father Social History Socioeconomic History Marital status: Spouse name: Not on file Number of children: Not on file Years of education: Not on file Highest education level: Not on file Occupational History Not on file Tobacco Use Smoking status: Former Current packs/day: 0.00 Types: Cigarettes Quit date: 01/04/2017 Years since quittin.8 Smokeless tobacco: Never Vaping Use Vaping status: Never Used Substance and Sexual Activity Alcohol use: Yes Drug use: No Sexual activity: Yes Other Topics Concern Caffeine Use No Social History Narrative Not on file Social Drivers of Health Financial Resource Strain: Not on file Food Insecurity: No Food Insecurity (11/08/2024) Hunger Screening Food Insecurity - Worry: Never True Food Insecurity - Inability: Never True Transportation Needs: Not on file Physical Activity: Not on file Stress: Not on file Social Connections: Not on file Interpersonal Safety: Not on file Housing Instability: Not on file Review of Systems Review of Systems Constitutional: Positive for fever. HENT: Negative. Eyes: Negative. Cardiovascular: Positive for chest pain. Respiratory: Positive for cough, shortness of breath and wheezing. Endocrine: Negative. Hematologic/Lymphatic: Negative. Skin: Negative. Musculoskeletal: Positive for arthritis and back pain. Gastrointestinal: Negative. Genitourinary: Negative. Neurological: Positive for dizziness, light-headedness and loss of balance. Psychiatric/Behavioral: Negative. Allergic/Immunologic: Positive for environmental allergies. Vascular: Negative. CARDIOVASCULAR: Please review HPI. Physical Examination General appearance: Alert, oriented and cooperative. In no acute distress. Skin: Warm and dry to touch. Head: Normocephalic, without obvious abnormality, atraumatic. Ears, Nose, Mouth, Throat: Throat clear without erythema or exudate. Dentition intact. Eyes: Conjunctivae unremarkable, EOM intact. Neck: No JVD, No carotid bruit. Neck supple, trachea midline. Respiratory: Clear to auscultation bilaterally, no use of accessory muscles. Cardiovascular: RRR with normal S1 and S2 with no murmurs. Gastrointestinal: Soft, non-tender. Bowel sounds normal. Musculoskeletal: No peripheral edema. Neurologic: Oriented to time, person and place, affect appropriate. No focal/major motor defects noted. Psychiatric: Appropriate mood, memory and judgement. VITAL SIGNS: BP 104/72 Pulse 105 Ht 172.7 cm (5' 8 ) Wt 94.8 kg (209 lb) SpO2 95% BMI 31.78 kg/m?? Orders Placed or Reconciled This Encounter Medications meclizine (ANTIVERT) 25 mg tablet Sig: Chew 1 tablet (25 mg total) and swallow 3 (three) times a day as needed for dizziness. benzonatate (TESSALON PERLES) 200 mg capsule Sig: Take 1 capsule (200 mg total) by mouth 3 (three) times a day as needed for cough. levoFLOXacin (LEVAQUIN) 750 mg tablet Sig: Take 1 tablet (750 mg total) by mouth in the morning. predniSONE (DELTASONE) 10 mg tablet Sig: Take 1 tablet (10 mg total) by mouth in the morning. Tapered dose. cyclobenzaprine (FLEXERIL) 10 mg tablet Sig: Take 1 tablet (10 mg total) by mouth once daily at bedtime. meloxicam (MOBIC) 7.5 mg tablet Sig: Take 1 tablet (7.5 mg total) by mouth in the morning. metoprolol succinate XL (TOPROL XL) 25 mg 24 hr tablet Sig: Take 1 tablet (25 mg total) by mouth in the morning. acetaminophen (TYLENOL EXTRA STRENGTH) 500 mg tablet Sig: Take 1 tablet (500 mg total) by mouth every 6 (six) hours as needed for pain. multivit-min/folic/vit K/lycop (MEN'S 50 PLUS MULTIVITAMIN ORAL) Sig: Take by mouth in the morning. cetirizine (ZyrTEC) 10 mg tablet Sig: Take 1 tablet (10 mg total) by mouth in the morning. There are no discontinued medications. IMPRESSIONS/PLAN 1. Syncope, unspecified syncope type - POCT EKG 1 high-grade AV block patient is symptomatic needs pacemaker Several episode of heart rate in the 40s and 30s with symptoms 2 mass the right lower lobe 7.1 x 4.8 with lymph node involvement Most likely malignancies patient is scheduled for bronchoscopy likely surgery My opinion patient will need ischemic evaluation given right bundle-branch block 3. Right bundle branch block most, etiology? coronary arterey disease given his age and risk factors 4. He said the ventricular system Plan Patient will be sent to the emergency room to be transferred to [facility] for pacemaker evaluation to suggest 2D echo and nuclear stress test Follow-up with me in 6 months if needed TODAYS ORDERS Orders Placed This Encounter Procedures POCT EKG FOLLOW UP Return in about 6 months (around 05/11/2025). PCP: BRANDI COLLINS APRN-CENTRIFUGAL DRIER OPERATOR Referring Physician: Alina Ragland MD [address] [place] [phone] documented in this encounter Plan of Treatment Upcoming Encounters Date Type Department Care Team (Late st Contact Info) Description 11/22/2024 1:00 PM EDT Office Visit [facility] [address] [place] [phone] Bishop Milan, VINAY-CENTRIFUGAL DRIER OPERATOR [facility] [place], [place] [id number] 12/07/2024 9:00 AM EDT Clinical Support [facility] [address] [place] [phone] documented as of this encounter Procedures Procedure Name Priority Date/Time Associated Diagnosis Comments POCT EKG Routine 11/08/2024 Syncope, unspecified syncope type documented in this encounter Results * POCT EKG (11/08/2024) Maritza Best MD ECG ORDERABLES Final Res ult MANUALLY TRANSCRIBED RESULTS documented in this encounter Visit Diagnoses Diagnosis Syncope, unspecified syncope type- Primary documented in this encounter Additional Health Concerns Assessment Noted Time PHQ-9 Depression Total Score: 0 12/18/19 17 3:00 PM EDT documented as of this encounter Care Teams Convenience Store Clerk Relationship Specialty Start Date End Date Brandi Collins, CONE EXAMINER-CENTRIFUGAL DRIER OPERATOR [address] [place] [address] PCP - General Nurse Practitioner 11/08/24 documented as of this encounter
--- OUTSIDE RECORDS SUMMARY | 2024-11-08 16:07 | XMS_ITS | Encounter Summary ---
Author Organization [facility] tem Address [id number] [address] [place] [address] Care Team Providers Care Field Hockey Coach Name Role Phone Brandi Alvarado Janeth MCLEAN-COMPUGRAPH OPERATOR Primary Care Provider [phone] Reason for Visit * Reason Comments Slow Heart Rate Encounter Details Date Type Department Care Team (Late st Contact Info) Description 11/08/2024 4:07 PM EDT - 11/08/2024 11:52 PM EDT Emergency [facility] - Emergency [address] [place] [address] Sean Hayes MD [address] [place] [address] Symptomatic bradycardia (Primary Dx) Discharge Disposition: Institution Not Defined Elsewhere Social History Tobacco Use Types Packs/Day Years Used Date Smoking Tobacco: Former Cigarettes Q uit: 01/04/2017 Smokeless Tobacco: Never Alcohol Use Standard Drinks/Week Comments Yes 0 (1 standard drink = 0.6 oz pur e alcohol) [facility] Utilities Answer Date Recorded In the past 12 months has [employer], gas, oil, or [employer] threatened to shut off services in your [...] Sign Reading Time Taken Comments Blood Pressure 123/76 11/08/2024 10:45 PM EDT Pulse 85 11/08/2024 11:15 PM EDT Temperature 36.6 C (97.8 F) 11/08/2024 4:26 PM EDT Respiratory Rate 19 11/08/2024 11:15 PM EDT Oxygen Saturation 95% 11/08/2024 11:15 PM EDT Inhaled Oxygen Concentration - - Weight 94.8 kg (209 lb) 11/08/2024 4:26 PM EDT Height - - Body Mass Index 31.78 11/08/2024 2:40 PM EDT documented in this encounter Medications at Time of Discharge acetaminophen (TYLENOL EXTRA STRENGTH) 500 mg tablet Take 1 tablet (500 mg total) by mouth every 6 (six) hours as needed for pain. benzonatate (TESSALON PERLES) 200 mg capsule Take 1 capsule (200 mg total) by mouth 3 (three) times a day as needed for cough. cetirizine (ZyrTEC) 10 mg tablet Take 1 tablet (10 mg total) by mouth in the morning. levoFLOXacin (LEVAQUIN) 750 mg tablet Take 1 tablet (750 mg total) by mouth in the morning. meclizine (ANTIVERT) 25 mg tablet Chew 1 tablet (25 mg total) and swallow 3 (three) times a day as needed for dizziness. metoprolol succinate XL (TOPROL XL) 25 mg 24 hr tablet Take 1 tablet (25 mg total) by mouth in the morning. multivit-min/folic /vit K/lycop (MEN'S 50 PLUS MULTIVITAMIN ORAL) Take by mouth in the morning. predniSONE (DELTASONE) 10 mg tablet Take 1 tablet (10 mg total) by mouth in the morning. Tapered dose. cyclobenzaprine (FLEXERIL) 10 mg tablet Take 1 tablet (10 mg total) by mouth once daily at bedtime. 5 ibuprofen (ADVIL,MOTRIN) 200 mg tablet Take 200 mg by mouth every 6 (six) hours as needed for pain. 5 meloxicam (MOBIC) 7.5 mg tablet Take 1 tablet (7.5 mg total) by mouth in the morning. 5 PEPSIN/GA/OXBILE/ PANCREAT/BET (VNXWZN-FTH-QA HRRM-XAY-XUD-PAP ORAL) Take by mouth. 5 tamsulosin (FLOMAX) 0.4 mg capsule,extended release 24hr Take 1 capsule (0.4 mg total) by mouth once daily for 90 days. 90 capsule 06/23/2017 5 varenicline (CHANTIX CONTINUING MONTH BOX) 1 mg tablet Take 1 tablet (1 mg total) by mouth 2 (two) times a day. Take with full glass of water. 56 tablet 3 03/31/2017 5 documented as of this encounter ED Notes * Sean Hayes MD - 11/08/2024 4:22 PM EDT Images from the original note were not included. [facility] - EMERGENCY Pt Name: Frantz Roa II Birthdate: 1960 Chief Complaint: Chief Complaint Patient presents with Slow Heart Rate History of Present Illness: Initial evaluation performed at 4:[address] Sean Hayes. Frantz Roa II is a 64 y.o. male who presents to the ED accompanied by his for evaluation of bradycardia. Pt states he was experiencing bradycardia down into the high 20s, causing him to have an episode of syncope 5 days ago. Pt's states pt would be visibly flushed out during his episodes of bradycardia, and was subsequently admitted to [facility] for pneumonia for 2 days and has not experienced any bradycardia or syncope since being discharged. 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 Pt's states pt was seen by cardiology in [place] and here at [facility] who both told him he needs a pacemaker, but was told to present to the ED. History provided by: Patient and spouse collector used: No Past Medical History: Past Medical History: Diagnosis Date Arthritis Hypertension Lung cancer ([facility]) Past Surgical History: Past Surgical History: Procedure Laterality Date SKIN BIOPSY basal cell carcinoma removed from left denominational TONSILLECTOMY TURP / TRANSURETHRAL INCISION / DRAINAGE PROSTATE 2019 TYMPANOSTOMY TUBE PLACEMENT Family History: Family History Problem Relation Age of Onset Arthritis Mother Heart disease Father Social History: Social History Socioeconomic History Marital status: Tobacco Use Smoking status: Former Current packs/day: 0.00 Types: Cigarettes Quit date: 01/04/2017 Years since quittin.8 Smokeless tobacco: Never Vaping Use Vaping status: Never Used Substance and Sexual Activity Alcohol use: Yes Drug use: No Sexual activity: Yes Other Topics Concern Caffeine Use No Social Drivers of Health Food Insecurity: No Food Insecurity (11/08/2024) Hunger Screening Food Insecurity - Worry: Never True Food Insecurity - Inability: Never True Review of Systems: Review of Systems Physical Exam: ED Triage Vitals Temp Pulse Resp BP SpO2 -- -- -- -- -- Temp src Heart Rate Source Patient Position BP Location FiO2 (%) -- -- -- -- -- There were no vitals filed for this visit. Physical Exam Vitals reviewed. HENT: Head: Normocephalic and atraumatic. Eyes: Conjunctiva/sclera: Conjunctivae normal. Cardiovascular: Rate and Rhythm: Normal rate. Comments: Heart monitor at midline of chest wall Pulmonary: Effort: Pulmonary effort is normal. Breath sounds: Normal breath sounds. Abdominal: General: There is no distension. Palpations: Abdomen is soft. Musculoskeletal: General: Normal range of motion. Cervical back: Normal range of motion and neck supple. Skin: General: Skin is warm and dry. Neurological: General: No focal deficit present. Mental Status: He is alert and oriented to person, place, and time. GCS: GCS eye subscore is 4. GCS verbal subscore is 5. GCS motor subscore is 6. Procedure: Procedures Re-evaluation: Barron Dias (scribe), documented on behalf and in the presence of Dr. Sean Hayes. Medical Decision Making Amount and/or Complexity of Data Reviewed Labs: ordered. Details: Labs notable for: APTT 25, WBC 18.0 Radiology: ordered and independent interpretation performed. Details: Imaging was independently viewed and is notable for no acute findings in agreement with official radiologist read. ECG/medicine tests: ordered and independent interpretation performed. Details: ECG notable for no acute findings Risk Prescription drug management. ED Course: Clinical Impressions as of 11/08/24 1659 Symptomatic bradycardia . ED Disposition None . Please note that portions of this note were completed with a voice recognition program. Efforts were made to edit the dictations but occasionally words are mis-transcribed. Barron Smith 11/08/24 1632 Barron Smith 11/08/24 1701 Barron Smith 11/08/24 1844 Sean Hayes MD 11/10/24 1905 documented in this encounter Plan of Treatment Upcoming Encounters Date Type Department Care Team (Late st Contact Info) Description 11/22/2024 1:00 PM EDT Office Visit [facility] [address] [place] [address] Bishop [place], VINAY-ABBEY [address] [place], [place] [id number] 12/07/2024 9:00 AM EDT Clinical Support [facility] [address] [place] [id number] documented as of this encounter Procedures Procedure Name Priority Date/Time Associated Diagnosis Comments TROP I, HIGH SENSITIVITY 1 HOUR STAT 11/08/2024 5:32 PM EDT XR CHEST 1 VW STAT 11/08/2024 4:59 PM EDT TROPONIN I, HIGH SENSITIVITY 0 HOUR STAT 11/08/2024 4:24 PM EDT TROPONIN I, HIGH SENSITIVITY 0 HOUR STAT 11/08/2024 4:24 PM EDT THYROID PROFILE INCLUDES TSH FT4 STAT 11/08/2024 4:24 PM EDT CBC WITH AUTO DIFFERENTIAL STAT 11/08/2024 4:24 PM EDT APTT STAT 11/08/2024 4:24 PM EDT PROTIME & INR STAT 11/08/2024 4:24 PM EDT D-DIMER STAT 11/08/2024 4:24 PM EDT B-TYPE NATRIURETIC PEPTIDE STAT 11/08/2024 4:24 PM EDT MAGNESIUM STAT 11/08/2024 4:24 PM EDT COMPREHENSIVE METABOLIC PANEL STAT 11/08/2024 4:24 PM EDT ECG 12-LEAD STAT 11/08/2024 4:18 PM EDT documented in this encounter Results * Troponin I, High Sensitivity 1 Hour (11/08/2024 5:32 PM EDT) TROPONIN I, HIGH SENSITIVITY 4 <21 ng/L 11/08/2024 6:19 PM EDT [facility] Blood Venous blood / Unknown 11/08/2024 5:32 PM EDT 11/08/2024 5:46 PM EDT Sean Hayes MD LAB BLOOD ORDERABLES Final Resu lt [facility] [address] [place] [address], [place] * X-ray chest 1 view (11/08/2024 4:59 PM EDT) Anatomical Region Laterality Modality Body, Chest N/A Computed Radiogr aphy 11/08/2024 5:02 PM EDT Narrative 11/08/2024 5:03 PM EDT XR CHEST 1 VW: 11/08/2024 4:59 PM Clinical: Chest pain Upright portable chest is compared with 01/20/2010. Electronic device overlies the mid thoracic spine. Heart size is normal. No focal consolidation, large effusion, or pneumothorax. IMPRESSION: * No acute disease to limits of this single view exam. * Recommend a two-view chest or CT if symptoms persist. Finalized by Moise Fatima MD on 11/08/2024 5:03 PM Procedure Note Moise Fatima MD - 11/08/2024 XR CHEST 1 VW: 11/08/2024 4:59 PM Clinical: Chest pain Upright portable chest is compared with 01/20/2010. Electronic device overlies the mid thoracic spine. Heart size is normal. No focal consolidation, large effusion, or pneumothorax. IMPRESSION: * No acute disease to limits of this single view exam. * Recommend a two-view chest or CT if symptoms persist. Finalized by Moise Fatima MD on 11/08/2024 5:03 PM Sean Hayes MD IMG DIAGNOSTIC IMAGING ORDERABL ES Final Result * Troponin I, High Sensitivity 0 Hour (11/08/2024 4:24 PM EDT) TROPONIN I, HIGH SENSITIVITY 4 <21 ng/L 11/08/2024 4:58 PM EDT [facility] Blood Venous blood / Unknown 11/08/2024 4:24 PM EDT 11/08/2024 4:29 PM EDT Sean Hayes MD LAB BLOOD ORDERABLES Final Resu lt Performing Organization Address [facility] [address]/[facility] Co de Phone Number [address] [place] [address], [place] * Thyroid profile includes TSH FT4 (11/08/2024 4:24 PM EDT) FREE T4 0.88 0.61 - 1.60 ng/dL 11/08/2024 5:09 PM EDT [facility] TSH 0.66 0.49 - 4.67 uIU/mL 11/08/2024 5:09 PM EDT [facility] Blood Venous blood / Unknown 11/08/2024 4:24 PM EDT 11/08/2024 4:29 PM EDT us Sean Hayes MD LAB BLOOD ORDERABLES Final Resu lt Performing Organization Address [facility] [address]/[facility] Co de Phone Number [address] [place] [address], [place] * Magnesium (11/08/2024 4:24 PM EDT) MAGNESIUM 2.1 1.8 - 2.6 mg/dL 11/08/2024 4:49 PM EDT [facility] Blood Venous blood / Unknown 11/08/2024 4:24 PM EDT 11/08/2024 4:29 PM EDT us Sean Hayes MD LAB BLOOD ORDERABLES Final Resu lt Performing Organization Address City/[facility] [address]/[facility] Co de Phone Number [address] [place] [address], [place] * D-Dimer (11/08/2024 4:24 PM EDT) D DIMER 175 1 - 255 ug/mL 11/08/2024 4:42 PM EDT [facility] Comment:Results <255 ng/mL D DU: The presensence of a VTE can safely be excluded with a negative D-Dimer result and Wells score. A negative result doesn't exclude the possibility of DIC. The test should be repeated along with other diagnostic tests if the patient's symptoms persist or worsen. Blood Venous blood / Unknown 11/08/2024 4:24 PM EDT 11/08/2024 4:29 PM EDT us Sean Hayes MD LAB BLOOD ORDERABLES Final Resu lt [facility] [address] [place] [address], * (ABNORMAL) Comprehensive metabolic panel (11/08/2024 4:24 PM EDT) SODIUM 129(L) 134 - 146 mmol/L 11/08/2024 4:49 PM EDT [facility] POTASSIUM 4.2 3.5 - 5.0 mmol/L 11/08/2024 4:49 PM EDT [facility] CHLORIDE 96(L) 98 - 109 mmol/L 11/08/2024 4:49 PM EDT [facility] CARBON DIOXIDE 24 22 - 32 mmol/L 11/08/2024 4:49 PM EDT [facility] ANION GAP 9 5 - 15 mmol/L 11/08/2024 4:49 PM EDT [facility] BLOOD UREA NITROGEN 30(H) 5 - 27 mg/dL 11/08/2024 4:49 PM EDT [facility] CREATININE 0.84 0.70 - 1.20 mg/dL 11/08/2024 4:49 PM EDT [facility] Comment:METHOD TRACEABLE TO IDMS STANDARD GLUCOSE 134(H) 65 - 99 mg/dL 11/08/2024 4:49 PM EDT [facility] CALCIUM 8.5 8.5 - 10.5 mg/dL 11/08/2024 4:49 PM EDT [facility] TOTAL PROTEIN 6.7 6.0 - 8.0 g/dL 11/08/2024 4:49 PM EDT [facility] ALBUMIN 3.1(L) 3.2 - 5.3 g/dL 11/08/2024 4:49 PM EDT [facility] ALKALINE PHOSPHATASE 60 39 - 130 U/L 11/08/2024 4:49 PM EDT [facility] AST 19 <=41 U/L 11/08/2024 4:49 PM EDT [facility] ALT 41(H) <=40 U/L 11/08/2024 4:49 PM EDT [facility] BILIRUBIN,TOTAL 0.5 0.3 - 1.2 mg/dL 11/08/2024 4:49 PM EDT [facility] EGFR Non-Race Dependent >90 >=60 ml/min/1.7 3sq.m 11/08/2024 4:49 PM EDT [facility] Comment: eGFR not reported due to non-numeric value for Creatinine. Reported eGFR is based on the CKD-EPI 2020 equation that does not use a race coefficient. Blood Venous blood / Unknown 11/08/2024 4:24 PM EDT 11/08/2024 4:29 PM EDT us Sean Hayes MD LAB BLOOD ORDERABLES Final Resu lt [facility] [address] [place] [address], * B-type natriuretic peptide (11/08/2024 4:24 PM EDT) BNP 64 <=100 pg/mL 11/08/2024 4:58 PM EDT [facility] Blood Venous blood / Unknown 11/08/2024 4:24 PM EDT 11/08/2024 4:29 PM EDT us Sean Hayes MD LAB BLOOD ORDERABLES Final Resu lt Performing Organization Address [facility] [address] [facility] Co de Phone Number [address] [place] [address], [place] * (ABNORMAL) APTT (11/08/2024 4:24 PM EDT) APTT 25(L) 26 - 37 sec 11/08/2024 4:42 PM EDT [facility] Blood Venous blood / Unknown 11/08/2024 4:24 PM EDT 11/08/2024 4:29 PM EDT us Sean Hayes MD LAB BLOOD ORDERABLES Final Resu lt Performing Organization Address [facility] [address] [facility] Co de Phone Number [address] [place] [address], [place] * Protime & INR (11/08/2024 4:24 PM EDT) PROTIME 12.4 9.8 - 13.2 sec 11/08/2024 4:42 PM EDT [facility] INR 1.1 0.9 - 1.2 11/08/2024 4:42 PM EDT [facility] Blood Venous blood / Unknown 11/08/2024 4:24 PM EDT 11/08/2024 4:29 PM EDT us Sean Hayes MD LAB BLOOD ORDERABLES Final Resu lt Performing Organization Address City/[facility] [address]/[facility] Co de Phone Number [address] [place] [address], [place] * (ABNORMAL) CBC auto differential (11/08/2024 4:24 PM EDT) WBC 18.0(H) 4 - 11 x10E9/L 11/08/2024 5:42 PM EDT [facility] RBC Count 4.37 4.1 - 5.7 X10E12/L 11/08/2024 5:42 PM EDT [facility] Hemoglobin 12.1(L) 13 - 17 g/dL 11/08/2024 5:42 PM EDT [facility] Hematocrit 36.6(L) 39 - 50 % 11/08/2024 5:42 PM EDT [facility] MCV 84 80 - 100 fL 11/08/2024 5:42 PM EDT [facility] MCH 27.6 27 - 34 pg 11/08/2024 5:42 PM EDT [facility] MCHC 32.9 32 - 36 g/dL 11/08/2024 5:42 PM EDT [facility] RDW 16.7(H) 11.5 - 15 % 11/08/2024 5:42 PM EDT [facility] Platelet Count 281 150 - 450 X10E9/L 11/08/2024 5:42 PM EDT [facility] MPV 6.9(L) 7 - 12 fL 11/08/2024 5:42 PM EDT [facility] Promyelocytes Relative 2 % 11/08/2024 5:42 PM EDT [facility] Comment:This is an appended report. These results have been appended to a previously preliminary verified report. Neutrophils Relatives 80 % 11/08/2024 5:42 PM EDT [facility] Comment:This is an appended report. These results have been appended to a previously preliminary verified report. Lymphocytes Relative 9 % 11/08/2024 5:42 PM EDT [facility] Comment:This is an appended report. These results have been appended to a previously preliminary verified report. Monocytes Relative 3 % 11/08/2024 5:42 PM EDT [facility] Comment:This is an appended report. These results have been appended to a previously preliminary verified report. Eosinophils Relative 1 % 11/08/2024 5:42 PM EDT [facility] Comment:This is an appended report. These results have been appended to a previously preliminary verified report. Basophils Relative 5 % 11/08/2024 5:42 PM EDT [facility] Comment:This is an appended report. These results have been appended to a previously preliminary verified report. Neutrophils Absolute (M) 14.4(H) 1.5 - 6.6 10*3/uL 11/08/2024 5:42 PM EDT [facility] Comment:This is an appended report. These results have been appended to a previously preliminary verified report. Lymphocytes Absolute 1.7 1.0 - 3.5 10*3/uL 11/08/2024 5:42 PM EDT [facility] Comment:This is an appended report. These results have been appended to a previously preliminary verified report. Monocytes Absolute 0.5 0.0 - 0.9 10*3/uL 11/08/2024 5:42 PM EDT [facility] Comment:This is an appended report. These results have been appended to a previously preliminary verified report. Eosinophils Absolute 0.2 0.0 - 0.4 10*3/uL 11/08/2024 5:42 PM EDT [facility] Comment:This is an appended report. These results have been appended to a previously preliminary verified report. Basophils Absolute 0.8(H) 0.0 - 0.2 10*3/uL 11/08/2024 5:42 PM EDT [facility] Comment:This is an appended report. These results have been appended to a previously preliminary verified report. Differential Type CELLAVISION DIFFERENTIAL 11/08/2024 5:42 PM EDT [facility] Comment:This is an appended report. These results have been appended to a previously preliminary verified report. Blood Venous blood / Unknown 11/08/2024 4:24 PM EDT 11/08/2024 4:29 PM EDT us Sean Hayes MD LAB BLOOD ORDERABLES Final Resu lt [facility] [address] [place] [address], [place] * ECG 12 lead (11/08/2024 4:18 PM EDT) 11/08/2024 4:18 PM EDT Narrative TRACEMASTERVUE - 11/08/2024 6:45 PM EDT us Sean Hayes MD ECG ORDERABLES Final Result MOHSEN documented in this encounter Visit Diagnoses Diagnosis Symptomatic bradycardia- Primary documented in this encounter Administered Medications Inactive Administered Medications - up to 3 most recent administrations Medication Order MAR Action Action Date Dose Rate Site sodium chloride 0.9 % flush 3 mL 3 mL, intravenous, As needed, line care, before and after each intermittent use, Starting on Wed11/08/24 at 1613 documented in this encounter Active and Recently Administered Medications Times are shown in EDT. PRN Medication Order 11/06/2024 11/07/2024 11/08/2024 sodium chloride 0.9 % flush 3 mL 3 mL, intravenous, As needed, line care, before and after each intermittent use, Starting on Wed11/08/24 at 1613 documented in this encounter Additional Health Concerns Assessment Noted Time PHQ-9 Depression Total Score: 0 12/18/19 17 3:00 PM EDT documented as of this encounter Care Teams Field Hockey Coach Relationship Specialty Start Date End Date Brandi Alvarado APRN-COMPUGRAPH OPERATOR [address] [place] [address] PCP - General Nurse Practitioner 11/08/24 documented as of this encounter
--- OUTSIDE RECORDS SUMMARY | 2024-11-09 00:47 | XMS_ITS | Encounter Summary ---
Author Organization [employer] [facility] tem Address [id number] [address] [place] [address] Care Team Providers Care Brancher Name Role Phone JennyNoemyJasmin MCLEANABBEY Primary Care Provider [phone] Reason for Referral * Misc (Routine) - Pending Review Specialty Diagnoses / Procedures Referred By Contac t Referred To Contact Procedures Discharge Follow-Up Meredith Love APRN-CNP [address] [place], [place] [id number] Phone: tel: fax: Referral ID Status Reason Start Date Expiration Date V isits Requested Visits Authorized [id number] Pending Review 11/09/2024 11/09/2025 1 1 * Misc (Routine) - Pending Review Specialty Diagnoses / Procedures Referred By Contac t Referred To Contact Procedures Remove dressing (specify when) Robert Veloz MD [facility] [place] [address] Phone: tel: fax: Referral ID Status Reason Start Date Expiration Date V isits Requested Visits Authorized [id number] Pending Review 11/09/2024 11/09/2025 1 1 * Misc (Routine) - Pending Review Specialty Diagnoses / Procedures Referred By Contac t Referred To Contact Procedures Hygiene Robert Veloz MD [address] [place] [address] Phone: tel: fax: Referral ID Status Reason Start Date Expiration Date V isits Requested Visits Authorized [id number] Pending Review 11/09/2024 11/09/2025 1 1 Reason for Visit * Auth/Cert Specialty Diagnoses / Procedures Referred By Beti t Referred To Contact Diagnoses AV [address] [address] Referral ID Status Reason Start Date Expiration Date Visits Re quested Visits Authorized [id number] 1 1 Encounter Details Date Type Department Care Team (Latest Contact Info) Description 11/09/2024 12:47 AM EDT - 11/09/2024 6:16 PM EDT Hospital Encounter [facility] - GEN 2 Acute [address] [place] [id number] Colby Johnson MD [address] , [facility] [address] [place] [address] Discharge Disposition: Home Social History Tobacco Use Types Packs/Day Years Used Date Smoking Tobacco: Former Cigarettes Q uit: 01/04/2017 Smokeless Tobacco: Never Alcohol Use Standard Drinks/Week Comments Not Currently 0 (1 standard drink = 0.6 oz pur e alcohol) [facility] Utilities Answer Date Recorded In the past 12 months has [employer], gas, oil, or water [employer] threatened to shut off services in your [...] Sign Reading Time Taken Comments Blood Pressure 131/74 11/09/2024 4:36 PM EDT Pulse 107 11/09/2024 4:36 PM EDT Temperature 37.3 C (99.1 F) 11/09/2024 4:36 PM EDT Respiratory Rate 20 11/09/2024 4:36 PM EDT Oxygen Saturation 96% 11/09/2024 4:36 PM EDT Inhaled Oxygen Concentration - - Weight 94.8 kg (208 lb 15.9 oz) 11/09/2024 7:30 AM EDT Height 172.7 cm (5' 8 ) 11/09/2024 7:30 AM EDT Body Mass Index 31.78 11/09/2024 7:30 AM EDT documented in this encounter Functional Status * Audit-C Score Answer Date of Assessment Author 1 11/09/2024 11:28 AM EDT Mary Ellen Jean RN * Intimate Partner Violence Question Answer Date of Assessment Author Within the last year, have y ou been humiliated or emotionally abused in other ways by your partner or ex-partner? No 11/09/2024 11:29 AM Kan Baxter RN Within the last year, have y ou been afraid of your partner or ex-partner? No 11/09/2024 11:29 AM Ray Baxter RN Within the last year, have y ou been raped or forced to have any kind of sexual activity by your partner or ex-partner? No 11/09/2024 11:29 AM Mary Ellen Astorga RN Within the last year, have y ou been kicked, hit, slapped, or otherwise physically hurt by your partner or ex-partner? No 11/09/2024 11:29 AM Mary Ellen Astorga RN * Question Answer Date of Assessment Author Q1: How often do you have a drink containing alcohol? Monthly or less 11/09/2024 11:28 AM Ray Baxter RN Q2: How many drinks containing alcohol do you have on a typical day when you are drinking? 1 or 2 11/09/2024 11:28 AM Kan Baxter RN Q3: How often do you have six or more drinks on one occasion? Never 11/09/2024 11:28 AM Ray Baxter RN * Question Answer Date of Assessment Author Functional Status Independent 11/09/2024 11:17 AM Mary Ellen Baxter RN documented as of this encounter Medications at Time of Discharge [...] by mouth in the morning. Tapered dose. documented as of this encounter H&P Notes * Colby Johnson MD - 11/09/2024 5:54 PM EDT Images from the original note were not included. [facility] [place] - GEN 2 ACUTE [address] [facility] [id number] Hospital Medicine History & Physical Patient: Frantz Roa II Date of : 1960 Room: [place] [address] PCP: CLINT PRINCE Admission date: 11/09/2024 12:47 AM Encounter date: 11/09/24 Hospital Day: 1 SUBJECTIVE Frantz Roa II is a 64 y.o. male who presents with past medical history significant for postobstructive pneumonia, squamous cell lung cancer, gout, BPH, AV block, syncope. Patient was admitted at [facility] a week ago after a syncopal event, he was found to be in complete heart block, also found to have pneumonia. He was treated for pneumonia, was not worked up for the heart block. Presented to [facility] 11/08/2024 for bradycardia, states that his heart rate was down into the 20s. States that he will become flushed during these episodes, had a syncopal event about a week ago, was admitted at [facility] for a total of 2 days for pneumonia. Cancer with a right lower lobe tumor. Patient was admitted to the hospital for further evaluation. He was seen by Cardiology and EP, underwent pacemaker placement today, per EP he was stable for discharge., discussed with attending MD, patient is stable to discharge home today. At the time of assessment he is resting comfortably in bed, at bedside. He was returned from having his pacemaker placed, states that his pain has been well-controlled. Reports that he is ready to go home. Discussed in length with the patient that he needs to continue his antibiotics for his pneumonia following discharge, he is also okay to resume his Toprol, okay with EP. Discharged home. Allergies: Bactrim [sulfamethoxazole-trimethoprim] and Codeine Prior to Admission medications Medication Sig Start Date End Date Taking? Authorizing Provider acetaminophen (TYLENOL EXTRA STRENGTH) 500 mg tablet Take 1 tablet (500 mg total) by mouth every 6 (six) hours as needed for pain. Yes Not In System Ref Prov benzonatate (TESSALON PERLES) 200 mg capsule Take 1 capsule (200 mg total) by mouth 3 (three) timesa day as needed for cough. Yes Not In System Ref Prov cetirizine (ZyrTEC) 10 mg tablet Take 1 tablet (10 mg total) by mouth in the morning. Yes Not In System Ref Prov cyclobenzaprine (FLEXERIL) 10 mg tablet Take 1 tablet (10 mg total) by mouth once daily at bedtime.Yes Not In System Ref Prov levoFLOXacin (LEVAQUIN) 750 mg tablet Take 1 tablet (750 mg total) by mouth in the morning. Yes NotIn System Ref Prov meclizine (ANTIVERT) 25 mg tablet Chew 1 tablet (25 mg total) and swallow 3 (three) times a day as needed for dizziness. Yes Not In System Ref Prov meloxicam (MOBIC) 7.5 mg tablet Take 1 tablet (7.5 mg total) by mouth in the morning. Yes Not In System Ref Prov metoprolol succinate XL (TOPROL XL) 25 mg 24 hr tablet Take 1 tablet (25 mg total) by mouth in the morning. Yes Not In System Ref Prov multivit-min/folic/vit K/lycop (MEN'S 50 PLUS MULTIVITAMIN ORAL) Take by mouth in the morning. Yes Not In System Ref Prov predniSONE (DELTASONE) 10 mg tablet Take 1 tablet (10 mg total) by mouth in the morning. Tapered dose. Yes Not In System Ref Prov Code Status: Full Code Past Medical History: Patient has a past medical history of Arthritis, Hypertension, and Lung cancer ([facility]). Past Surgical History: Patient has a past surgical history that includes Tonsillectomy; Tympanostomy tube placement; Skin biopsy; and TURP / transurethral incision / drainage prostate (2019). Family History: Patient's family history includes Arthritis in his mother; Heart disease in his father. Social History: Patient reports that he quit smoking about 7 years ago. His smoking use included cigarettes. He hasnever used smokeless tobacco. He reports that he does not currently use alcohol. He reports that hedoes not use drugs. Review of Systems Constitutional: Negative for activity change, appetite change, chills, fatigue, fever and unexpected weight change. HENT: Negative for congestion, dental problem, hearing loss, rhinorrhea, sore throat, trouble swallowing and voice change. Eyes: Negative for visual disturbance. Respiratory: Negative for cough, shortness of breath and wheezing. Cardiovascular: Negative for chest pain, palpitations and leg swelling. Gastrointestinal: Negative for abdominal pain, blood in stool, constipation, diarrhea, nausea and vomiting. Genitourinary: Negative for difficulty urinating, dysuria, enuresis, frequency and hematuria. Musculoskeletal: Negative for arthralgias, joint swelling and myalgias. Skin: Negative for color change, rash and wound. Neurological: Positive for weakness. Negative for dizziness, seizures, syncope, speech difficulty, numbness and headaches. Hematological: Negative for adenopathy. Does not bruise/bleed easily. Psychiatric/Behavioral: Negative for dysphoric mood and sleep disturbance. The patient is not nervous/anxious. OBJECTIVE BP 131/74 Pulse 107 Temp 37.3 ??C (99.1 ??F) (Oral) Resp 20 Ht 172.7 cm (5' 8 ) Wt 94.8 kg (208 lb 15.9 oz) SpO2 96% BMI 31.78 kg/m?? Temp: [36.4 ??C (97.5 ??F)-37.3 ??C (99.1 ??F)] 37.3 ??C (99.1 ??F) Pulse: [84-107] 107 Resp: [16-24] 20 BP: (112-144)/(65-92) 131/74 SpO2: [93 %-100 %] 96 % O2 Device: None (Room air) O2 Flow Rate (L/min): [0 L/min] 0 L/min Intake/Output Summary (Last 24 hours) at 11/09/2024 3250 Last data filed at 11/09/2024 1600 Gross per 24 hour Intake -- Output 950 ml Net -950 ml Physical Exam Constitutional: General: He is not in acute distress. Cardiovascular: Rate and Rhythm: Normal rate and regular rhythm. Heart sounds: Normal heart sounds. Pulmonary: Effort: Pulmonary effort is normal. Breath sounds: Examination of the right-lower field reveals decreased breath sounds and rales. Decreased breath sounds and rales present. No wheezing or rhonchi. Abdominal: General: Abdomen is flat. Palpations: Abdomen is soft. Tenderness: There is no abdominal tenderness. Musculoskeletal: Right lower leg: No edema. Left lower leg: No edema. Skin: General: Skin is warm and dry. Capillary Refill: Capillary refill takes less than 2 seconds. Coloration: Skin is not pale. Findings: No rash. Neurological: General: No focal deficit present. Mental Status: Mental status is at baseline. Psychiatric: Behavior: Behavior is cooperative. Medications Scheduled: sodium chloride, 3 mL, intravenous, Q12H SUSHILA Infusions: dextrose 5 % in water, 100 mL/hr As Needed: acetaminophen alum-mag hydroxide-simeth dextrose dextrose 5 % in water dextrose 50 % in water (D50W) glucagon (human recombinant) magnesium sulfate magnesium sulfate ondansetron potassium chloride OR potassium chloride OR potassium chloride IV (Adult) sennosides-docusate sodium sodium chloride Allergies: Bactrim [sulfamethoxazole-trimethoprim] and Codeine Labs Recent Results (from the past 24 hours) CBC auto differential Collection Time: 11/09/24 2:41 AM Result Value Ref Range WBC 15.7 (H) 4 - 11 x10E9/L RBC Count 4.25 4.1 - 5.7 X10E12/L Hemoglobin 11.7 (L) 13 - 17 g/dL Hematocrit 35.1 (L) 39 - 50 % MCV 83 80 - 100 fL MCH 27.6 27 - 34 pg MCHC 33.4 32 - 36 g/dL RDW 16.5 (H) 11.5 - 15 % Platelet Count 254 150 - 450 X10E9/L MPV 6.9 (L) 7 - 12 fL Myelocyte 1 % Metamyelocytes Relative 2 % Neutrophils Relatives 73 % Lymphocytes Relative 11 % Monocytes Relative 11 % Eosinophils Relative 1 % Neutrophils Absolute (M) 11.5 (H) 1.5 - 6.6 10*3/uL Lymphocytes Absolute 1.8 1.0 - 3.5 10*3/uL Monocytes Absolute 1.8 (H) 0.0 - 0.9 10*3/uL Eosinophils Absolute 0.2 0.0 - 0.4 10*3/uL RBC Morphology Normal Differential Type CELLAVISION DIFFERENTIAL Comprehensive metabolic panel Collection Time: 11/09/24 2:41 AM Result Value Ref Range SODIUM 138 134 - 146 mmol/L POTASSIUM 4.2 3.5 - 5.0 mmol/L CHLORIDE 100 98 - 109 mmol/L CARBON DIOXIDE 28 22 - 32 mmol/L ANION GAP 10 5 - 15 mmol/L BLOOD UREA NITROGEN 25 5 - 27 mg/dL CREATININE 0.65 0.60 - 1.30 mg/dL GLUCOSE 104 (H) 65 - 99 mg/dL CALCIUM 8.6 8.5 - 10.5 mg/dL TOTAL PROTEIN 5.8 (L) 6.0 - 8.0 g/dL ALBUMIN 3.4 3.2 - 5.3 g/dL ALKALINE PHOSPHATASE 53 39 - 130 U/L AST 13 <=41 U/L ALT 26 <=40 U/L BILIRUBIN,TOTAL 0.4 0.3 - 1.2 mg/dL EGFR Non-Race Dependent >90 >=60 ml/min/1.73sq.m Procalcitonin Collection Time: 11/09/24 2:41 AM Result Value Ref Range PROCALCITONIN 0.08 (H) <0.05 ng/mL Narrative <0.50 ng/mL - Low risk of severe sepsis and/or septic shock. <2.00 ng/mL - Recommend retesting within 6-24 hours. >2.00 ng/mL - High risk of sepsis and/or septic shock. Lactate w/ Reflex Collection Time: 11/09/24 2:41 AM Result Value Ref Range LACTATE W/REFLEX 1.1 0.4 - 2.0 mmol/L Narrative Result did not trigger repeat Lactate, re-order if needed. Radiology X-ray chest 2 views Result Date: 11/09/2024 Narrative: History: check for pneumothorax Exam/Technique: PA and lateral chest Comparison: None. Findings: Basal changes bilaterally with the right lower lobe/pneumonic consolidation. Cardiac and mediastinal contours are within normal limits. Pacemaker on the left. IMPRESSION: Basal consolidation consistent with pneumonia. No pneumothorax. Finalized by Eliud Colin MD on 11/09/2024 4:20 PM EP Invasive Result Date: 11/09/2024 Narrative: Successful implantation of a dual chamber permanent pacemaker X-ray chest 1 view Result Date: 11/08/2024 Narrative: XR CHEST 1 VW: 11/08/2024 4:59 PM Clinical: Chest pain Upright portable chest is comparedwith 01/20/2010. Electronic device overlies the mid thoracic spine. Heart size is normal. No focal consolidation, large effusion, or pneumothorax. IMPRESSION: * No acute disease to limits of this single view exam. * Recommend a two-view chest or CT if symptoms persist. Finalized by Moise Fatima MD on 11/08/2024 5:03 PM OT-NM PET w/ CT Scan Skull Base to Midthigh IMPORT Result Date: 10/23/2024 Narrative: Images were obtained outside of [facility] PROBLEM LIST Principal Problem: AV block Active Problems: BPH with urinary obstruction Gout Squamous cell lung cancer ([facility]) ASSESSMENT & PLAN Intermittent AV block, Syncope Admitted at [facility] 2024 after syncopal event EKG with evidence of complete heart block Toprol initially discontinued Cardiology, EP consulted Recent thyroid profile stable Pacemaker placement 11/09 Echo completed-reviewed by cardiology Chest x-ray, wound, device check completed by EP, they state he is stable for discharge at this time, okay to resume Toprol following discharge. Cardiology will follow up outpatient and evaluate if patient needs further ischemic workup Postobstructive pneumonia-recently admitted/treated for RLL lung mass, squamous cell lung cancer Takes prednisone daily at home Was recently admitted and discharged after being treated for postobstructive pneumonia, continue Levaquin Leukocytosis likely secondary to steroid use/recent pneumonia, improving Sepsis suspected, no-not clinically evident at this time. Chart reviewed. Admission orders placed. Home medications reconciled. DVT/VTE prophylaxis: SCD and no pharmacologic prophylaxis due to procedure. GI prophylaxis: not indicated. DC planning: home, today. CLINT WOOD 11/09/2024 5:55 PM [facility] Internal Medicine 7AM-7PM & 7PM-7AM: EpicChat or page through On[employer]. CLINT Wood 11/09/24 2911 Physician Attestation I, Colby Johnson MD, personally performed a face to face diagnostic evaluation on this patient. I have reviewed the note authored by the advance practice provider including history, review of systems,physical examination,medical decision making and agree with the assessment and plan as written. I have seen and evaluated the patient, I have repeated the olson portions of the physical exam and concur with the CANDICE findings. I have reviewed all laboratory findings and imaging reports/films. I agree with the plan as noted. documented in this encounter Procedure Notes * Robert Veloz MD - 11/09/2024 2:09 PM EDT Images from the original note were not included. PROCEDURE: PERMANENT PACEMAKER IMPLANT IMPLANTED DEVICE INFORMATION: Peela pulse generator, model L311, serial number [id number] at the L prepectoral site. Atrial lead 7841, 52 cm, serial number [id number]. Right ventricular lead 7842, 59 cm, serial number [id number]. ATTENDING PROVIDER: Robert Veloz MD/SABA, [facility] MODERATE SEDATION FOR PROCEDURE: Moderate sedation was given during this procedure. The total dose of fentanyl was 50 mcg and the total dose of midazolam was 2 mg. I supervised and directed the trained healthcare provider who assisted in monitoring the patient's hemodynamic and respiratory status and response to these medications.Please see the full detailed procedure report generated by the electrophysiology laboratory staff for exact procedure start and stop times. Patient tolerated moderate sedation with no complications regarding the sedation aspect of the procedure. ESTIMATED BLOOD LOSS: <10cc RADIATION EXPOSURE: 5.6 minutes and 28 mGy COMPLICATIONS: No immediate complications TIME OUT: Time out was completed with verification of the correct patient identity, procedure to beperformed, procedure site and implanted equipment. CONSENT: The risks, benefits, approach and potential complications of the procedure were discussed.The patient was able to give written informed consent after revisiting the olson portions of the riskversus benefit profile of the procedure. See previous notes for additional details. This detailed informed consent process utilized mutual and shared decision making process between the physician, patient, and potentially patient's selected family and friends. HISTORY/INDICATION FOR PROCEDURE: Frantz Roa II is a 64 y.o. year old male with a past medical history of RLL lung mass c/b malignancy, RBBB, and HTN who presented w/ syncope, found to be in complete heart block. PROCEDURE AND FINDINGS: The patient was brought to the electrophysiology laboratory in a post absorptive state. Informed consent was obtained prior to the procedure. Intravenous prophylactic antibiotics were administered and confirmed to be completely infused prior to start of the procedure. After the site of implantation was prepped and draped in the usual sterile fashion and after adequate anesthesia was given, the skin was infiltrated with 1% lidocaine. The skin was incised with a #10 scalpel. Blunt and electrosurgical dissection was carried out to the level of the prepectoral fascia with careful attention paid to hemostasis. A pocket to house the pulse generator was formed between the prepectoral fascia and subcutaneous fat with blunt and electrosurgical dissection. The pocket was subsequently observed with hemostasis obtained. Once adequate hemostasis was confirmed within the pocket, venous access was obtained. The axillary vein was accessed via modified Seldinger technique and 2separate vena punctures with a micropuncture kit. J-tip 0.035 inch guide wires were advanced under fluoroscopy into the inferior vena cava. RIGHT VENTRICULAR LEAD: A peel away sheath was brought to the field and placed into the venous system via over the wire technique. The right ventricular lead was placed via this sheath into the right ventricle. The lead wasattached via active fixation to the RV apex. Adequate sensing and threshold parameters were obtained. There was no evidence of diaphragmatic stimulation at 10V output. The peel away sheath was removed and the lead collar was advanced to the pectoral muscle and sutured with non absorbable suture. Tug testing of this lead confirmed stability of the lead and the length of the lead's slack was assessed as optimal with fluoroscopy. RIGHT ATRIAL LEAD: A peel away sheath was brought to the field and placed into the venous system via over the wire technique. The right atrial lead was placed via this sheath into the right atrium. The lead was attached via active fixation to the RA appendage. Adequate sensing and threshold parameters were obtained. There was no evidence of diaphragmatic stimulation at 10V output. The peel away sheath was removed and the lead collar was advanced to the pectoral muscle and sutured with non absorbable suture. Tug testing of this lead confirmed stability of the lead and the length of the lead's slack was assessed as optimal with fluoroscopy. The lead tips for all leads were cleaned and dried thoroughly. The leads were attached to the appropriate ports on the pulse generator. Tug testing was performed on all connections. The device and leads were implanted within the pocket with redundant leads posterior to the pulse generator. The pocket was closed with two layers of suture using 2-0 continuous Vicryl, a layer of SteriStrips, and a Telfa-Tegaderm dressing. A pressure dressing was applied. MEASURED DEVICE DATA: Sensing (mV) Impedance (ohms) Threshold (V @ ms) Atrial Lead 5.4 580 1.2 @ 0.4 RV Lead >25 1180 0.7 @ 0.4 PROGRAMMED PARAMETERS: Mode: DDD Lower Rate: 60 beats per minute Upper Tracking Rate: 140 beats per minute CONCLUSION: 1. Successful implantation of a dual chamber permanent pacemaker PLAN: Discharge navigator updated w/ arm/activity/shower restrictions. Avoid heparin products x24 hours CXR/wound/device check by EP service later this afternoon Will arrange EP follow-up in 1-2 weeks for wound check and 1-2 months for device check. Robert Veloz MD/SABA, FAC, [facility] Cardiac Pasting Machine Operator [facility] at [facility] Cardiology documented in this encounter Consult Notes * Robert Veloz MD - 11/09/2024 6:06 AM EDT Images from the original note were not included. [facility] - Electrophysiology [address] [place] [address] CONSULTATION PATIENT NAME: Frantz Roa II : 1960 AGE: 64 y.o. Date of Admission: 11/09/2024 Date of Consultation: 11/09/2024 Primary Pasting Machine Operator: None SUBJECTIVE REASON FOR CONSULT: syncope, high-degree block HISTORY OF PRESENT ILLNESS: 64M w/ PMH RLL lung mass c/b malignancy, HTN who [facility] afterbeing seen at [facility] outpatient cardiology office for syncope. He was recently admitted at [facility] 2024 after an episode of syncope, EKG on admission demonstrated complete heart blockwith junctional escape 50 BPM, his home Toprol 25 mg qday was held. He was also diagnosed with post-obstructive PNA as well, and has previously undergone bx of his RLL mass at [facility]. He was discharged w/o any further evaluation of his CHB. No recent TTE. EKG at [facility] w/ sinus rhythm, [id number] ms. Lab work on admission at [facility] did not show significant electrolyte abnormalities, but di d reveal leukocytosis consistent with his history of PNA. Labs on admission here continues w/ leukocytosis though decreased from yesterday, TSH/FT4 wnl. Telemetry demonstrated two-to-one AV block earlier this morning associated with symptoms. Patient states that he had 1 episode syncope one-week ago, he was registering for admission in the emergency room, once finding of signature, he had sudden onset syncope. [place] back to normal afterwards. PAST MEDICAL HISTORY Past Medical History: Diagnosis Date Arthritis Hypertension Lung cancer ([facility]) SURGICAL HISTORY has a past surgical history that includes Tonsillectomy; Tympanostomy tube placement; Skin biopsy; and TURP / transurethral incision / drainage prostate (2019). SOCIAL HISTORY Social History Socioeconomic History Marital status: Spouse [...] on file Housing Instability: Not on file FAMILY HISTORY family history includes Arthritis in his mother; Heart disease in his father. MEDICATIONS Prior to Admission medications Medication Sig Start Date End Date Taking? Authorizing Provider acetaminophen (TYLENOL EXTRA STRENGTH) 500 mg tablet Take 1 tablet (500 mg total) by mouth every 6 (six) hours as needed for pain. Not In System Ref Prov benzonatate (TESSALON PERLES) 200 mg capsule Take 1 capsule (200 mg total) by mouth 3 (three) timesa day as needed for cough. Not In System Ref Prov cetirizine (ZyrTEC) 10 mg tablet Take 1 tablet (10 mg total) by mouth in the morning. Not In SystemRef Prov cyclobenzaprine (FLEXERIL) 10 mg tablet Take 1 tablet (10 mg total) by mouth once daily at bedtime.Not In System Ref Prov ibuprofen (ADVIL,MOTRIN) 200 mg tablet Take 200 mg by mouth every 6 (six) hours as needed for pain. Patient not taking: Reported on 11/08/2024 Not In System Ref Prov levoFLOXacin (LEVAQUIN) 750 mg tablet Take 1 tablet (750 mg total) by mouth in the morning. Not In System Ref Prov meclizine (ANTIVERT) 25 mg tablet Chew 1 tablet (25 mg total) and swallow 3 (three) times a day as needed for dizziness. Not In System Ref Prov meloxicam (MOBIC) 7.5 mg tablet Take 1 tablet (7.5 mg total) by mouth in the morning. Not In SystemRef Prov metoprolol succinate XL (TOPROL XL) 25 mg 24 hr tablet Take 1 tablet (25 mg total) by mouth in the morning. Not In System Ref Prov multivit-min/folic/vit K/lycop (MEN'S 50 PLUS MULTIVITAMIN ORAL) Take by mouth in the morning. Not In System Ref Prov PEPSIN/GA/OXBILE/PANCREAT/BET (KOHLQB-RJX-HI PCBH-BAD-SUE-PAP ORAL) Take by mouth. Patient not taking: Reported on 11/08/2024 Not In System Ref Prov predniSONE (DELTASONE) 10 mg tablet Take 1 tablet (10 mg total) by mouth in the morning. Tapered dose. Not In System Ref Prov tamsulosin (FLOMAX) 0.4 mg capsule,extended release 24hr Take 1 capsule (0.4 mg total) by mouth once daily for 90 days. 06/23/17 09/21/17 Shaye Youssef APRN-TRADING FLOOR OPERATOR varenicline (CHANTIX CONTINUING MONTH BOX) 1 mg tablet Take 1 tablet (1 mg total) by mouth 2 (two) times a day. Take with full glass of water. Patient not taking: Reported on 11/08/2024 03/31/17 Shaye Yesenia Salgado, HOOP BENDER TANK-TRADING FLOOR OPERATOR ALLERGIES Bactrim [sulfamethoxazole-trimethoprim] and Codeine REVIEW OF SYSTEMS Constitutional: No fevers or chills, no recent weight gain or weight loss or fatigue Eyes: No visual changes or diplopia ENT: No headaches, hearing loss or vertigo Cardiovascular: Per HPI Respiratory: No cough or wheezing, no sputum production, no hematemesis Gastrointestinal: No abdominal pain, no nausea, vomiting, constipation, diarrhea Genitourinary: No dysuria, or hematuria Musculoskeletal: No gait disturbance, weakness or joint complaints Integumentary: No rash or pruritis Neurological: No headache, no prior CVA/TIA Psychiatric: No anxiety, or depression Endocrine: No temperature intolerance Hematologic/Lymphatic: No abnormal bruising or bleeding OBJECTIVE VITAL SIGNS: BP 129/83 Pulse 96 Temp 36.6 ??C (97.8 ??F) (Oral) Resp 18 SpO2 95% ADMIT WEIGHT: BMI: There is no height or weight on file to calculate BMI. Admission PHYSICAL EXAM General appearance: Awake, alert, cooperative Head: Normocephalic, without obvious abnormality, atraumatic Eyes: Conjunctivae/corneas clear, EOMs intact Neck: No JVD, no appreciable carotid bruits, no masses Lungs: Clear to auscultation bilaterally, no rhonchi, rales or crackles, symmetrical breath sounds Heart: Regular rate and rhythm, normal S1 and S2, no rubs, murmurs, or gallops Abdomen: Soft, non-tender, bowel sounds normal, no organomegaly Extremities: No lower extremity edema, no cyanosis or clubbing Skin: Skin color, turgor normal, no rashes or lesions Neurologic: Grossly normal CBC: Results from last 7 days Lab Units 11/09/24 0241 11/08/24 1624 WBC x10E9/L 15.7* 18.0* HEMOGLOBIN g/dL 11.7* 12.1* HEMATOCRIT % 35.1* 36.6* MCV fL 83 84 PLATELETS X10E9/L 254 281 BMP: Results from last 7 days Lab Units 11/09/24 0241 11/08/24 1624 SODIUM mmol/L 138 129* POTASSIUM mmol/L 4.2 4.2 CHLORIDE mmol/L 100 96* CO2 mmol/L 28 24 BUN mg/dL 25 30* CREATININE mg/dL 0.65 0.84 CALCIUM mg/dL 8.6 8.5 MAGNESIUM mg/dL -- 2.1 PT/INR: Results from last 7 days Lab Units 11/08/24 1624 PROTIME sec 12.4 INR 1.1 APTT: MAG: Results from last 7 days Lab Units 11/08/24 1624 MAGNESIUM mg/dL 2.1 D Dimer: Results from last 7 days Lab Units 11/08/24 1624 D DIMER ug/mL 175 Troponin I ProBNP Results from last 7 days Lab Units 11/08/24 1624 BNP pg/mL 64 Lipid Panel: Lab Results Component Value Date CHOL 175 09/30/2020 TRIG 121 09/30/2020 HDL 25 (L) 09/30/2020 CURRENT MEDICATIONS: sodium chloride, 3 mL, intravenous, Q12H SUSHILA CONTINUOUS INFUSIONS: dextrose 5 % in water, 100 mL/hr CV HISTORY: ECHO: No results found. STRESS: No results found. HOLTER: No results found. CARDIAC CATH: No results found. CXR: @CXR24@ ASSESSMENT AND PLAN Syncope Intermittent complete heart block R lung mass, SCC HTN Patient w/ documented complete heart block that appears intermittent w/ baseline RBBB and recurrentsyncope, prior Toprol discontinued. Given syncope, patient would benefit from pacemaker. TTE has been ordered, though anticipate <40% RV pacing so would not change decision regarding DELICATESSEN DEPARTMENT MANAGER. Has beenkept NPO overnight, will plan for later today. Orders for pacemaker placed, patient will be consented at bedside. Avoid heparin products. Robert Veloz MD/SABA, FAC, [facility] Cardiac Electrophysiology This note was completed using a voice hammerer system. Every effort was made to ensure accuracy. However, inadvertent computerized hammerer errors may be present. * Sofiya Eisenberg, HOOP BENDER TANK-TRADING FLOOR OPERATOR - 11/09/2024 3:44 AM EDTAssociated Order(s): IP CONSULT TO CARDIOLOGY Images from the original note were not included. Maritza Best MD Physician Cardiology Progress Notes Signed Encounter Date: 11/08/2024 Signed Expand All Collapse All[]Expand All by Default Frantz Roa II Date of visit: 11/08/2024 Date of : 1960 Age: 64 y.o. Problem List There is no problem list on file for this patient. Allergies Allergies Allergen Reactions Bactrim [Sulfamethoxazole-Trimethoprim] Codeine diaphoresis Current Medications Current Outpatient Medications Medication Sig Dispense Refill [...] pain.(Patient not taking: Reported on 11/08/2024) PEPSIN/GA/OXBILE/PANCREAT/BET (KCODUJ-CKR-WO EHGK-HUG-BMV-PAP ORAL) Take by mouth. 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 With involvement of the lymph node, history of diverticulitis, Patient was seen at [facility] following syncope hardware with about 40 was [...] normal LV function with mild aortic stenosis Medical History Past Medical History: Diagnosis Date Arthritis Hypertension Lung cancer (CMS-HCC) No data recorded No data recorded No data recorded Surgical History Past Surgical History: Procedure Laterality Date SKIN BIOPSY basal cell carcinoma removed from left mandaeism TONSILLECTOMY TURP / TRANSURETHRAL INCISION / DRAINAGE PROSTATE 2019 TYMPANOSTOMY TUBE PLACEMENT History - Family Family History Problem Relation Age of Onset [...] the emergency room to be transferred to [facility] for pacemaker evaluation to suggest 2D echo and nuclear stress test Follow-up with me in 6 months if needed TODAYS ORDERS Orders Placed This Encounter Procedures POCT EKG FOLLOW UP Return in about 6 months (around 05/11/2025). PCP: CLINT PRINCE Referring Physician: Alina Ragland MD [address] [place] [id number] CLINT Kumar 11/09/24 2751 documented in this encounter Miscellaneous Notes * Situational Awareness - Aleida Almodovar PA-C - 11/09/2024 5:17 PM EDT Patient present was admitted with a chief complaint of complete heart block. No anginal symptoms, high sensitivity troponins negative. General cardiology will have the patient follow up outpatient and evaluate if ischemic workup is still warranted. No plans for inpatient workup at this time. I informed the patient to follow up in the office as well. Discussed with Dr.Shuaib Aleida Almodovar PA-C 11/09/24 1720 Aleida Almodovar PA-C 11/09/24 1721 * Treatment Plan - Robert Veloz MD - 11/09/2024 2:12 PM EDT Brief EP Treatment Plan Note Patient underwent successful left-sided [employer] dual-chamber pacemaker implantation with me today for intermittent complete heart block. Plan: Discharge navigator updated w/ arm/activity/shower restrictions. Avoid heparin products x24 hours CXR/wound/device check by EP service later this afternoon Will arrange EP follow-up in 1-2 weeks for wound check and 1-2 months for device check. Okay to discharge home from EP perspective after completion of above. EP will sign off, please callback with any questions. Robert Veloz MD/SABA, FAC, [facility] Cardiac Electrophysiology * Pre-Sedation Documentation - Robert Veloz MD - 11/09/2024 9:12 AM EDT Pre Procedure Evaluation: H&P was reviewed and the patient was examined. No change has occurredin the patient's condition since the H&P was completed. ASA: 3 Mallampati: II Sedation plan and risks discussed with: patient Electrocardiac Assessment Method: Back Hand * Discharge Planning Note - Faye Chow RN - 11/09/2024 9:07 AM EDT Initial Assessment Medical focus: cardiology testing/plan. Met with patient and at bedside to confirm the initial assessment info below: Initial Assessment Flowsheet Row Most Recent Value Patient Information Initial Pre-Hospitalization Assessment Completed? Completed Primary Caregiver Self Accompanied by/Relationship , Kim Support System Spouse/Significant Other Mandaeism/Cultural Factors No Discharge Planning Living Arrangements Spouse/significant other Assistance Needed Independent Home Care Services No Community Agencies Currently Utilized None Type of Residence Private residence Established DME Comments No DME Stressors Income Information Income Information Retired/Pension/Social Security IP Hunger/Food Insecurity Screening Hunger Screening Complete? Yes Pt. Eligible for Food / Voucher No Caregiver/Family Member Caregiver/Support System Limitations Patient/Caregiver Goals Community Provider Referral Services Requested Patient expects to be discharged to: Home Does the patient wish to have family/friend/caregiver involved in their discharge planning? Yes Does the patient plan to return home to a community setting? Yes Has the family/friend/caregiver been assessed to determine their readiness, skills, capacities, andresources to provide post hospital care? Yes, Caregiver Assessment Completed Discharge Disposition Home with self care Does the patient need discharge transportation arranged? No Plan is home self care with support. Pt declines PCP follow up appt. He prefers to make his own appointment. He would appreciate his PCP and rad oncologist, Kvng Perez, be added to receive a summary of care (completed). Patient and family have no further concerns at this time. - Faye Chow RN 11/09/24 9:08 AM * Plan of Care - Tracy Madrigal RN - 11/09/2024 7:29 AM EDT Problem: Pain Goal: Patient goal is pain score less than 4, able to rest, and participant in treatment plan as appropriate Description: INTERVENTIONS: 1. Encourage patient or legal customer operations representative to report early pain and ask for pain medicine when needed 2. Assess pain using appropriate pain scale and include the scale used when documenting 3. Administer analgesics based on type and severity of pain and evaluate response within appropriate time frame 4. Implement non-pharmacological measures as appropriate and evaluate response 5. Consider cultural and social influences on pain and pain management 6. Notify LIP if interventions ineffective or patient reports new pain 7. Monitor vital signs including pulse ox, end-tidal CO2 based on pain intervention 8. Reassess pain per policy 9. Teach patient or legal customer operations representative interventions for comforting Outcome: Progressing Note: Evaluation of progress towards goal: Patient rates pain as tolerable this shift. Patient encouraged to report need for pain medications as needed. Patient assessed for pain using appropriate pain scale. Problem: Safety Goal: Patient will be injury free during hospitalization Description: INTERVENTIONS: 1. Assess patient's risk for falls and implement fall prevention plan of care per policy 2. Provide and maintain a safe environment 3. Proper use of double Identifiers 4. Medication administration using the 5 rights 5. Hand hygiene 6. Specimens are labeled at the bedside 7. Instruct patient/ patient customer operations representative about use of safety devices 8. Include patient/ patient customer operations representative in decisions related to safety Outcome: Progressing Note: Evaluation of progress towards goal: Safety maintained and call light within reach. No falls or injuries this shift. Bed rails up x2. Orientation reviewed. Hourly rounded maintained. Will continue to maintain safety until end of this shift Problem: Infection Goal: Absence of infection during hospitalization Description: INTERVENTIONS 1. Assess and monitor for signs and symptoms of infection. 2. Monitor lab/diagnostic results. 3. Monitor all insertion sites i.e., indwelling lines, tubes and drains. 4. Monitor endotracheal (as able) and nasal secretions for changes in amount and color. 5. Administer medications as ordered. 6. Instruct and encourage patient and family to use good hand hygiene technique. 7. Identify and instruct patient/patient customer operations representative in use of appropriate isolation precautionsfor identified infection/symptoms. 8. Provide and discuss with patient/patient customer operations representative on educational MDRO sheet. 9. Encourage and monitor nutritional status daily and consult physical plant manager if indicated. 10. Implement neutropenic guidelines as needed. Outcome: Progressing Note: Evaluation of progress towards goal: No active infections Problem: Knowledge Deficit Goal: Patient/patient customer operations representative demonstrates understanding of disease process, treatment plan,medications, and discharge instructions Description: INTERVENTIONS 1. Complete learning assessment and assess knowledge base 2. Provide teaching at level of understanding 3. Provide teaching via preferred learning method(s) Outcome: Progressing Note: Evaluation of progress towards goal: Assessment of best learning methods and knowledge base completed.Teaching provided at patient's level of understanding, and via patient's preferred learningmethods when applicable. Problem: Discharge Planning Goal: Discharge to post-acute care, other facility, or home with appropriate resources Description: Patient's goal is: INTERVENTIONS 1. Conduct assessment to determine patient/family and health care team treatment goals, and need for post-acute services based on payer coverage, community resources, and patient preferences, and barriers to discharge 2. Coordinate with Social work, Care Navigation, and Utilization Review to arrange appropriate level of services according to patient's needs based on patient preference and payer coverage in collaboration with the physician and health care team 3. Address psychosocial, clinical, and financial barriers to discharge as identified in assessment in conjunction with the patient/family and health care team 4. Consult appropriate ancillary services (i.e.. PT/OT/ST, etc) as needed 5. Communicate with and update the patient/family, physician, and health care team regarding progress on the discharge plan 6. Identify discharge learning needs (meds, wound care, etc). 7. Arrange for needed discharge transportation as appropriate Outcome: Progressing Note: Evaluation of progress towards goal: Discharge planning is in progress at this time. Problem: Moderate - High Risk Fall Score Description: Concepcion Fall Score of =/> 25 or indicated by [facility] Assessment Goal: Patient should be free from fall Description: Interventions: 1. [place] to environment 2. Hourly rounds addressing the 4 P's (Pain, Positioning, Possessions, Potty) 3. Clear area of hazards (spills, clutter, electrical cords, unnecessary equipment) 4. Place equipment (bed & TV controls, call light, phone, urinal) within reach 5. Encourage patient to wear glasses and hearing aides as appropriate 6. Maintain bed in lowest position 7. Lock wheels on bed/wheelchair 8. Provide adequate lighting, including night light 9. Assess need for additional bedding, food/fluids, pain med's prior to sleep/routinely 10. Provide gripper slippers or personal non-skid footwear 11. Teach patient and patient customer operations representative to maintain environment for safety and engage in all aspects of fall prevention program 12. Remind patient to call for help before getting out of bed 13. Initiate bed/chair/exit alarms supportive devices as appropriate, (chair wedge, no-skid floor mat, raised edge mattress, hip protectors) 14. Locate patient bed assignment for optimal visualization 15. Evaluate and identify Safe Patient Handling Equipment needs 16. Provide supervision when out of bed or chair 17. Utilize gait belt as needed to assist with ambulation 18. Place adaptive equipment (cane, walker) within reach 19. Request patient customer operations representative bring adaptive equipment/mobility aids from home or obtain and provide as needed 20. Consult pharmacy regarding effects of med's affecting mobility, cognition, and alternatives 21. Obtain physician order for PT if risk factors associated with mobility are present 22. Obtain physician order for OT as appropriate 23. Utilize diversional activities 24. Educate patient and patient customer operations representative how to maintain a safe environment during visitationtimes (notify nurse prior to leaving bedside) 25. Consider appropriateness of medical or non-medical records assistant 26. Set up voiding schedule as appropriate (every 2 hours) Outcome: Progressing Note: Evaluation of progress towards goal: Safety maintained and call light within reach. No falls or injuries this shift. Bed rails up x2. Orientation reviewed. Hourly rounded maintained. Will continue to maintain safety until end of this shift Problem: Cardiovascular - Adult Goal: Maintains optimal cardiac output and hemodynamic stability Description: Patient's goal is: INTERVENTIONS: 1. Monitor vital signs, rhythm, and trends 2. Monitor for bleeding, hypotension and signs of decreased cardiac output 3. Administer ordered vasoactive medications to optimize hemodynamic stability 4. Monitor arterial and/or venous puncture sites for bleeding and/or hematoma 5. Assess quality of pulses, skin color and temperature Outcome: Progressing Note: Evaluation of progress towards goal: Patient maintains optimal cardiac output and hemodynamicstability during this shift. Goal: Absence of cardiac dysrhythmias or at baseline Description: INTERVENTIONS: 1. Continuous cardiac monitoring, monitor vital signs, obtain 12 lead EKG as ordered 2. Monitor for therapeutic effect/ side effects and safely 3. Administer antiarrhythmic and heart rate control medications as ordered 3. Initiate emergency measures for life threatening arrhythmias 4. Monitor labs and administer replacement/adjust therapy as ordered Outcome: Progressing Note: Evaluation of progress towards goal: Patient remains at baseline for cardiac dysrhythmias during this shift. * Plan of Care - Evette Henderson RN - 11/09/2024 2:24 AM EDT Problem: Pain Goal: Patient goal is pain score less than 4, able to rest, and participant in treatment plan as appropriate Description: INTERVENTIONS: 1. Encourage patient or legal customer operations representative to report early pain and ask for pain medicine when needed 2. Assess pain using appropriate pain scale and include the scale used when documenting 3. Administer analgesics based on type and severity of pain and evaluate response within appropriate time frame 4. Implement non-pharmacological measures as appropriate and evaluate response 5. Consider cultural and social influences on pain and pain management 6. Notify LIP if interventions ineffective or patient reports new pain 7. Monitor vital signs including pulse ox, end-tidal CO2 based on pain intervention 8. Reassess pain per policy 9. Teach patient or legal customer operations representative interventions for comforting Outcome: Progressing Note: Evaluation of progress towards goal: Pt was assessed using the appropriate pain scale 1-10. Problem: Safety Goal: Patient will be injury free during hospitalization Description: INTERVENTIONS: 1. Assess patient's risk for falls and implement fall prevention plan of care per policy 2. Provide and maintain a safe environment 3. Proper use of double Identifiers 4. Medication administration using the 5 rights 5. Hand hygiene 6. Specimens are labeled at the bedside 7. Instruct patient/ patient customer operations representative about use of safety devices 8. Include patient/ patient customer operations representative in decisions related to safety Outcome: Progressing Note: Evaluation of progress towards goal: Pt will remain free of falls and injury during hospitalization. Problem: Infection Goal: Absence of infection during hospitalization Description: INTERVENTIONS 1. Assess and monitor for signs and symptoms of infection. 2. Monitor lab/diagnostic results. 3. Monitor all insertion sites i.e., indwelling lines, tubes and drains. 4. Monitor endotracheal (as able) and nasal secretions for changes in amount and color. 5. Administer medications as ordered. 6. Instruct and encourage patient and family to use good hand hygiene technique. 7. Identify and instruct patient/patient customer operations representative in use of appropriate isolation precautionsfor identified infection/symptoms. 8. Provide and discuss with patient/patient customer operations representative on educational MDRO sheet. 9. Encourage and monitor nutritional status daily and consult physical plant manager if indicated. 10. Implement neutropenic guidelines as needed. Outcome: Progressing Note: Evaluation of progress towards goal: Pt will remain afebrile and show no signs or symptoms ofinfection. Problem: Cardiovascular - Adult Goal: Maintains optimal cardiac output and hemodynamic stability Description: Patient's goal is: INTERVENTIONS: 1. Monitor vital signs, rhythm, and trends 2. Monitor for bleeding, hypotension and signs of decreased cardiac output 3. Administer ordered vasoactive medications to optimize hemodynamic stability 4. Monitor arterial and/or venous puncture sites for bleeding and/or hematoma 5. Assess quality of pulses, skin color and temperature Outcome: Progressing Note: Evaluation of progress towards goal: Pt HR and BP remain WDL. Not experiencing any cardiac symptoms. Problem: Cardiovascular - Adult Goal: Absence of cardiac dysrhythmias or at baseline Description: INTERVENTIONS: 1. Continuous cardiac monitoring, monitor vital signs, obtain 12 lead EKG as ordered 2. Monitor for therapeutic effect/ side effects and safely 3. Administer antiarrhythmic and heart rate control medications as ordered 3. Initiate emergency measures for life threatening arrhythmias 4. Monitor labs and administer replacement/adjust therapy as ordered Outcome: Progressing Note: Evaluation of progress towards goal: Pt remains NS rhythm, no dysrhythmias present documented in this encounter Plan of Treatment Upcoming Encounters Date Type Department Care Team (Late st Contact Info) Description 11/22/2024 1:00 PM EDT Office Visit [facility] [address] [place] [address] Bishop Milan APRN-TRADING FLOOR OPERATOR [address] [place] [address] 12/07/2024 9:00 AM EDT Clinical Support [facility] [address] [place] [address] documented as of this encounter Goals Goal Patient Goal Type Associated Problems Recent Progress Patient-Stated? Author Discharge home General Yes Faye Chow RN Note: Evaluation of progress towards goal: Pt plans to return home self care with support. documented as of this encounter Procedures Procedure Name Priority Date/Time Associated Diagnosis Comments XR CHEST 2 VWS Routine 11/09/2024 3:40 PM EDT EP INVASIVE Routine 11/09/2024 2:10 PM EDT ECHO COMPLETE W CONTRAST Routine 11/09/2024 1:27 PM EDT PROCALCITONIN STAT Add-on 11/09/2024 2:41 AM EDT LACTATE W/ REFLEX STAT 11/09/2024 2:4 1 AM EDT CBC WITH AUTO DIFFERENTIAL STAT 11/09/2024 2:41 AM EDT COMPREHENSIVE METABOLIC PANEL STAT 11/09/2024 2:41 AM EDT documented in this encounter Results * X-ray chest 2 views (11/09/2024 3:40 PM EDT) Anatomical Region Laterality Modality Body, Chest N/A Computed Radiogr aphy 11/09/2024 4:20 PM EDT Narrative 11/09/2024 4:20 PM EDT History: check for pneumothorax Exam/Technique: PA and lateral chest Comparison: None. Findings: Basal changes bilaterally with the right lower lobe/pneumonic consolidation. Cardiac and mediastinal contours are within normal limits. Pacemaker on the left. IMPRESSION: Basal consolidation consistent with pneumonia. No pneumothorax. Finalized by Eliud Colin MD on 11/09/2024 4:20 PM Procedure Note Eliud Colin MD - 11/09/2024 History: check for pneumothorax Exam/Technique: PA and lateral chest Comparison: None. Findings: Basal changes bilaterally with the right lower lobe/pneumonicconsolidation. Cardiac and mediastinal contours are within normal limits.Pacemaker on the left. IMPRESSION: Basal consolidation consistent with pneumonia. Nopneumothorax. Finalized by Eliud Colin MD on 11/09/2024 4:20 PM us Robert Veloz MD IMG DIAGNOSTIC IMAGING ORDERABLE S Final Result * EP INVASIVE (11/09/2024 2:10 PM EDT) Narrative PAPA - 11/09/2024 2:12 PM EDT Successful implantation of a dual chamber permanent pacemaker Procedure Details PROCEDURE: PERMANENT PACEMAKER IMPLANT IMPLANTED DEVICE INFORMATION: [employer] pulse generator, model L311, serial number [id number] at the L prepectoral site. Atrial lead 7841, 52 cm, serial number [id number]. Right ventricular lead 7842, 59 cm, serial number [id number]. ATTENDING PROVIDER: Robert Veloz MD/SABA, [facility] MODERATE SEDATION FOR PROCEDURE: Moderate sedation was given during this procedure. The total dose of fentanyl was 50 mcg and the total dose of midazolam was 2 mg. I supervised and directed the trained healthcare provider who assisted in monitoring the patient's hemodynamic and respiratory status and response to these medications. Please see the full detailed procedure report generated by the electrophysiology laboratory staff for exact procedure start and stop times. Patient tolerated moderate sedation with no complications regarding the sedation aspect of the procedure. ESTIMATED BLOOD LOSS: <10cc RADIATION EXPOSURE: 5.6 minutes and 28 mGy COMPLICATIONS: No immediate complications TIME OUT: Time out was completed with verification of the correct patient identity, procedure to be performed, procedure site and implanted equipment. CONSENT: The risks, benefits, approach and potential complications of the procedure were discussed. The patient was able to give written informed consent after revisiting the olson portions of the risk versus benefit profile of the procedure. See previous notes for additional details. This detailed informed consent process utilized mutual and shared decision making process between the physician, patient, and potentially patient's selected family and friends. HISTORY/INDICATION FOR PROCEDURE: Frantz Roa II is a 64 y.o. year old male with a past medical history of RLL lung mass c/b malignancy, RBBB, and HTN who presented w/ syncope, found to be in complete heart block. PROCEDURE AND FINDINGS: The patient was brought to the electrophysiology laboratory in a post absorptive state. Informed consent was obtained prior to the procedure. Intravenous prophylactic antibiotics were administered and confirmed to be completely infused prior to start of the procedure. After the site of implantation was prepped and draped in the usual sterile fashion and after adequate anesthesia was given, the skin was infiltrated with 1% lidocaine. The skin was incised with a #10 scalpel. Blunt and electrosurgical dissection was carried out to the level of the prepectoral fascia with careful attention paid to hemostasis. A pocket to house the pulse generator was formed between the prepectoral fascia and subcutaneous fat with blunt and electrosurgical dissection. The pocket was subsequently observed with hemostasis obtained. Once adequate hemostasis was confirmed within the pocket, venous access was obtained. The axillary vein was accessed via modified Seldinger technique and 2 separate vena punctures with a micropuncture kit. J-tip 0.035 inch guide wires were advanced under fluoroscopy into the inferior vena cava. RIGHT VENTRICULAR LEAD: A peel away sheath was brought to the field and placed into the venous system via over the wire technique. The right ventricular lead was placed via this sheath into the right ventricle. The lead was attached via active fixation to the RV apex. Adequate sensing and threshold parameters were obtained. There was no evidence of diaphragmatic stimulation at 10V output. The peel away sheath was removed and the lead collar was advanced to the pectoral muscle and sutured with non absorbable suture. Tug testing of this lead confirmed stability of the lead and the length of the lead's slack was assessed as optimal with fluoroscopy. RIGHT ATRIAL LEAD: A peel away sheath was brought to the field and placed into the venous system via over the wire technique. The right atrial lead was placed via this sheath into the right atrium. The lead was attached via active fixation to the RA appendage. Adequate sensing and threshold parameters were obtained. There was no evidence of diaphragmatic stimulation at 10V output. The peel away sheath was removed and the lead collar was advanced to the pectoral muscle and sutured with non absorbable suture. Tug testing of this lead confirmed stability of the lead and the length of the lead's slack was assessed as optimal with fluoroscopy. The lead tips for all leads were cleaned and dried thoroughly. The leads were attached to the appropriate ports on the pulse generator. Tug testing was performed on all connections. The device and leads were implanted within the pocket with redundant leads posterior to the pulse generator. The pocket was closed with two layers of suture using 2-0 continuous Vicryl, a layer of SteriStrips, and a Telfa-Tegaderm dressing. A pressure dressing was applied. MEASURED DEVICE DATA: Sensing (mV) Impedance (ohms) Threshold (V @ ms) Atrial Lead 5.4 580 1.2 @ 0.4 RV Lead >25 1180 0.7 @ 0.4 PROGRAMMED PARAMETERS: Mode: DDD Lower Rate: 60 beats per minute Upper Tracking Rate: 140 beats per minute CONCLUSION: 1. Successful implantation of a dual chamber permanent pacemaker PLAN: 1. Discharge navigator updated w/ arm/activity/shower restrictions. 2. Avoid heparin products x24 hours 3. CXR/wound/device check by EP service later this afternoon 4. Will arrange EP follow-up in 1-2 weeks for wound check and 1-2 months for device check. Robert Veloz MD/SABA, FACC, FHRS Cardiac Pasting Machine Operator [facility] Physicians Cardiology us Robert Veloz MD CV ELECTROPHYSIOLOGY ORDERABLES Final Result PAPA * Echo complete W/ contrast (11/09/2024 1:27 PM EDT) LVOT stroke volume 91.23 ml XCELERA FS 43 28 - 44 % XCELERA LVIDd 5.10 5.41 - 7.51 cm XCELERA LVIDs 2.90 3.17 - 4.79 cm XCELERA IVS 1.00 0.6 - 1.1 cm XCELERA PW 1.00 0.6 - 1.1 cm XCELERA LVOT diameter 2.20 cm XCELERA TDI 6.85 cm/s XCELERA MV TDI E' (medial) 6.74 cm/s XCELERA E/A ratio 0.77 XCELERA E wave deceleration time 256.00 msec XCELERA MV Peak E Cirilo 80.60 cm/s XCELERA MV Peak A Cirilo 105.00 cm/s XCELERA LA size 3.00 cm XCELERA Aortic root 3.50 cm XCELERA RV diastolic dimension (basal) 31.0 mm XCELERA TAPSE 1.93 cm XCELERA AV peak cirilo 277.00 cm/s XCELERA LVOT peak cirilo 1.17 m/s XCELERA AV VTI 50.00 cm XCELERA LVOT peak VTI 24.00 cm XCELERA AV mean gradient 16.00 mmHg XCELERA AV peak gradient 30.69 mmHg XCELERA AV valve area 1.82 XCELERA Valve area - Index 0.9 XCELERA MV pressure 1/2 time 75.00 ms XCELERA MV valve area p 1/2 method 2.93 cm2 XCELERA TR Peak Cirilo 2.5 m/s XCELERA TR peak gradient 25.34 mmHg XCELERA PV peak gradient 4.24 mmHg XCELERA Inferior Vena Cava Diameter 1.30 cm XCELERA LV ESV A4C 43.70 mL XCELERA LV RWT 2D 39.22 XCELERA AV Velocity Ratio 0.48 XCELERA IVC proximal 13 cm XCELERA Left Ventricle Mass 188.00709 [id number] 4 g XCELERA Interventricular Septum Diastolic Thickness by 2D 10 cm XCELERA ZLVIDS -2.33 XCELERA ZLVIDD -2.22 XCELERA Energy loss index 20.00 XCELERA RA area 16.5 cm2 XCELERA Est. RA pressure 3 mmHg XCELERA Anatomical Region Laterality Modality Chest N/A Ultrasound Narrative 11/09/2024 9:21 PM EDT Left Ventricle: Left ventricle appears normal in size. Systolic function is normal with an ejection fraction of 60-65%. Right ventricular size appears normal. Normal function. The aortic valve is trileaflet. The leaflets are mildly thickened and exhibit normal excursion. There is no regurgitation. There is mild stenosis. The calculated aortic valve area is 1.82 cm2. The calculated aortic valve peak gradient is 30.69 mmHg. The calculated aortic valve mean gradient is 16.00 mmHg. Left Ventricle Left ventricle appears normal in size. Wall thickness is normal. Systolic function is normal with an ejection fraction of 60-65%. See wall score diagram for wall motion abnormalities. Lateral E' is 6.85 cm/s. Medial E' is 6.74 cm/s. Right Ventricle Right ventricular size appears normal. The right ventricular basal diameter is 31.0 mm. Normal tricuspid annular plane systolic excursion. Left Atrium Left atrium is normal in size. Right Atrium Right atrium is normal in size. The right atrial area is 16.5 cm2. IVC/SVC The right atrial pressure is estimated at 3 mmHg. Mitral Valve Mitral valve structure is normal. There is annular calcification. There is no regurgitation or stenosis. Tricuspid Valve Tricuspid valve appears to be normal. There is mild regurgitation. There is no evidence of tricuspid valve stenosis. RVSP is based on RA pressure of 3 mmHg. Aortic Valve The aortic valve is trileaflet. The leaflets are mildly thickened and exhibit normal excursion. There is no regurgitation. There is mild stenosis. The calculated aortic valve area is 1.82 cm2. The calculated aortic valve peak gradient is 30.69 mmHg. The calculated aortic valve mean gradient is 16.00 mmHg. Pulmonic Valve Pulmonic valve structure is grossly normal. There is no regurgitation or stenosis. The peak gradient is 4.24 mmHg. Ascending Aorta The aortic root is normal in size. Pericardium There is no pericardial effusion. The pericardium has a fat pad. Study Details A complete echo was performed using complete 2D, color flow Doppler and spectral Doppler. During the study the apical, parasternal, subcostal and suprasternal views were captured. Definity study was performed. Overall the study quality was adequate. BP: 131/89 Wall Scoring Baseline Score Index: 1.00 The left ventricular wall motion is normal. Sofiya Eisenberg HOOP BEND[employer] TANK-TRADING FLOOR OPERATOR CV ECHO ORDERABLES Fi nal Result * Lactate w/ Reflex (11/09/2024 2:41 AM EDT) LACTATE W/REFLEX 1.1 0.4 - 2.0 mmol/L 11/09/2024 4:26 AM EDT [facility] Blood Venous blood / Unknown 11/09/2024 2:41 AM EDT 11/09/2024 2:41 AM EDT [facility] - 11/09/2024 4:26 AM EDT Result did not trigger repeat Lactate, re-order if needed. [facility] BLOOD ORDERABLES Final Result [facility] [address] [place] [address], * (ABNORMAL) Procalcitonin (11/09/2024 2:41 AM EDT) [facility] Signature PROCALCITONIN 0.08(H) <0.05 ng/mL 11/09/2024 3:31 AM EDT [facility] Blood 11/09/2024 2:41 AM EDT 11/09/2024 2:41 AM EDT [facility] - 11/09/2024 3:31 AM EDT <0.50 ng/mL - Low risk of severe sepsis and/or septic shock. <2.00 ng/mL - Recommend retesting within 6-24 hours. >2.00 ng/mL - High risk of sepsis and/or septic shock. [facility] [employer]-TRADING FLOOR OPERATOR LAB BLOOD ORDERABLES Final Result [facility] [address] [place] [id number], * (ABNORMAL) Comprehensive metabolic panel (11/09/2024 2:41 AM EDT) SODIUM 138 134 - 146 mmol/L 11/09/2024 3:28 AM EDT [facility] POTASSIUM 4.2 3.5 - 5.0 mmol/L 11/09/2024 3:28 AM EDT [facility] CHLORIDE 100 98 - 109 mmol/L 11/09/2024 3:28 AM EDT [facility] CARBON DIOXIDE 28 22 - 32 mmol/L 11/09/2024 3:28 AM EDT [facility] ANION GAP 10 5 - 15 mmol/L 11/09/2024 3:28 AM EDT [facility] BLOOD UREA NITROGEN 25 5 - 27 mg/dL 11/09/2024 3:28 AM EDT [facility] CREATININE 0.65 0.60 - 1.30 mg/dL 11/09/2024 3:28 AM EDT [facility] Comment:METHOD TRACEABLE TO IDMS STANDARD GLUCOSE 104(H) 65 - 99 mg/dL 11/09/2024 3:28 AM EDT [facility] CALCIUM 8.6 8.5 - 10.5 mg/dL 11/09/2024 3:28 AM EDT [facility] TOTAL PROTEIN 5.8(L) 6.0 - 8.0 g/dL 11/09/2024 3:28 AM EDT [facility] ALBUMIN 3.4 3.2 - 5.3 g/dL 11/09/2024 3:28 AM EDT [facility] ALKALINE PHOSPHATASE 53 39 - 130 U/L 11/09/2024 3:28 AM EDT [facility] AST 13 <=41 U/L 11/09/2024 3:28 AM EDT [facility] ALT 26 <=40 U/L 11/09/2024 3:28 AM EDT [facility] BILIRUBIN,TOTAL 0.4 0.3 - 1.2 mg/dL 11/09/2024 3:28 AM EDT [facility] EGFR Non-Race Dependent >90 >=60 ml/min/1.7 3sq.m 11/09/2024 3:28 AM EDT [facility] Comment: Reported eGFR is based on the CKD-EPI 2020 equation that does not use a race coefficient. Blood 11/09/2024 2:41 AM EDT 11/09/2024 2:41 AM EDT us Lauren Guardado [employer]TRADING FLOOR OPERATOR LAB BLOOD ORDERABLES Final Result [facility] [address] [place] [address], [place] [phone] * (ABNORMAL) CBC auto differential (11/09/2024 2:41 AM EDT) WBC 15.7(H) 4 - 11 x10E9/L 11/09/2024 3:57 AM EDT [facility] RBC Count 4.25 4.1 - 5.7 X10E12/L 11/09/2024 3:57 AM EDT [facility] Hemoglobin 11.7(L) 13 - 17 g/dL 11/09/2024 3:57 AM EDT [facility] Hematocrit 35.1(L) 39 - 50 % 11/09/2024 3:57 AM EDT [facility] MCV 83 80 - 100 fL 11/09/2024 3:57 AM EDT [facility] MCH 27.6 27 - 34 pg 11/09/2024 3:57 AM EDT [facility] MCHC 33.4 32 - 36 g/dL 11/09/2024 3:57 AM EDT [facility] RDW 16.5(H) 11.5 - 15 % 11/09/2024 3:57 AM EDT [facility] Platelet Count 254 150 - 450 X10E9/L 11/09/2024 3:57 AM [facility] MPV 6.9(L) 7 - 12 fL 11/09/2024 3:57 AM [facility] Myelocyte 1 % 11/09/2024 3:57 AM [facility] Comment:This is an appended report. These results have been appended to a previously preliminary verified report. Metamyelocytes Relative 2 % 11/09/2024 3:57 AM [facility] Comment:This is an appended report. These results have been appended to a previously preliminary verified report. Neutrophils Relatives 73 % 11/09/2024 3:57 AM [facility] Comment:This is an appended report. These results have been appended to a previously preliminary verified report. Lymphocytes Relative 11 % 11/09/2024 3:57 AM [facility] Comment:This is an appended report. These results have been appended to a previously preliminary verified report. Monocytes Relative 11 % 11/09/2024 3:57 AM [facility] Comment:This is an appended report. These results have been appended to a previously preliminary verified report. Eosinophils Relative 1 % 11/09/2024 3:57 AM [facility] Comment:This is an appended report. These results have been appended to a previously preliminary verified report. Neutrophils Absolute (M) 11.5(H) 1.5 - 6.6 10*3/uL 11/09/2024 3:57 AM [facility] Comment:This is an appended report. These results have been appended to a previously preliminary verified report. Lymphocytes Absolute 1.8 1.0 - 3.5 10*3/uL 11/09/2024 3:57 AM [facility] Comment:This is an appended report. These results have been appended to a previously preliminary verified report. Monocytes Absolute 1.8(H) 0.0 - 0.9 10*3/uL 11/09/2024 3:57 AM [facility] Comment:This is an appended report. These results have been appended to a previously preliminary verified report. Eosinophils Absolute 0.2 0.0 - 0.4 10*3/uL 11/09/2024 3:57 AM EDT [facility] Comment:This is an appended report. These results have been appended to a previously preliminary verified report. RBC Morphology Normal 11/09/2024 3:57 AM EDT [facility] Comment:This is an appended report. These results have been appended to a previously preliminary verified report. Differential Type CELLAVISION DIFFERENTIAL 11/09/2024 3:57 AM EDT [facility] Comment:This is an appended report. These results have been appended to a previously preliminary verified report. Blood 11/09/2024 2:41 AM EDT 11/09/2024 2:41 AM EDT Lauren Guardado [employer]TRADING FLOOR OPERATOR LAB BLOOD ORDERABLES Final Result [facility] [address] [place] [address], [place] [phone] documented in this encounter Visit Diagnoses Diagnosis AV block- Primary Unspecified atrioventricular block BPH with urinary obstruction Hypertrophy of prostate with urinary obstruction and other lower urinary tract symptoms (LUTS) Gout Gout, unspecified Squamous cell lung cancer (CMS-HCC) Intermittent complete heart block (CMS-HCC) documented in this encounter Admitting Diagnoses Diagnosis AV block Unspecified atrioventricular block documented in this encounter Administered Medications Inactive Administered Medications - up to 3 most recent administrations Medication Order MAR Action Action Date Dose Rate Site acetaminophen (TYLENOL EXTRA STRENGTH) tablet 500 mg 500 mg, oral, Every 6 hours PRN, mild pain - pain scale 1-3, headaches, temperature greater than 38 C, Starting on Rhona 11/09/24 at 0103, [Warning: Total Acetaminophen not to exceed more than 4 grams (4000 mg) in 24 hours] Given 11/09/2024 4:45 PM EDT 500 mg alum-mag hydroxide-simeth (MAALOX) 200-200-20 mg/5 mL suspension 30 mL 30 mL, oral, 4 times daily after meals and at bedtime as needed, dyspepsia, Starting on Rhona 11/09/24 at 0103, Look-alike/sound-alike medication - verify indication for use. Umesh call., Indications: dyspepsiaIndications:dyspepsia dextrose (GLUTOSE) 40 % gel 15 g 15 g, oral, As needed, low blood sugar, blood glucose less than 70 mg/dL, Starting on Rhona 11/09/24 at 0104, If patient conscious and taking PO. If blood glucose is not greater than 70 mg/dL after initial treatment, repeat treatment. dextrose 5 % (D5W) infusion 100 mL/hr, intravenous, Continuous PRN, blood glucose less than 70 mg/dL, Starting on Rhona 11/09/24 at 0104, Use immediately following dextrose 50% or glucagon treatment for patients who are unconscious or NPO. Contact prescriber for additional orders. If blood glucose is not greater than 70 mg/dL after initial treatment, repeat treatment. dextrose 50 % in water (D50W) 50% solution 25 mL 25 mL, intravenous, As needed, low blood sugar, blood glucose less than 70 mg/dL and unconscious or NPO with IV access, Starting on Rhona 11/09/24 at 0104, Push over 1-3 minutes STAT. If conscious and not NPO, immediately follow with meal tray or high protein (7 grams) snack if tray not available. If NPO, initiate 5% dextrose in water at 100 mL/hr and contact prescriber for additional orders. If blood glucose is not greater than 70 mg/dL after initial treatment, repeat treatment. VESICANT (RED) Warning: HYPERTONIC solution. glucagon HCL injection 1 mg 1 mg, intramuscular, As needed, low blood sugar, blood glucose less than 70 mg/dL and unconscious or NPO without IV access., Starting on Rhona 11/09/24 at 0104, If conscious and not NPO, immediately follow with meal tray or high protein (7Grams) snack if tray not available. If NPO, initiate IV 5% Dextrose/Water at 100 mL/hr and contact prescriber for additional orders. If blood glucose is not greater than 70 mg/dL after initial treatment, repeat treatment. magnesium sulfate IVPB 2000 mg/50 mL in iso-osmotic water (40 mg/mL premix) 2,000 mg, intravenous, at 25 mL/hr, Administer over 120 Minutes, As needed, Magnesium level 1.7-1.9, Starting on Rhona 11/09/24 at 0103, Recheck magnesium level 4 hours after infusion complete. With each magnesium result continue the replacement orders as needed. magnesium sulfate IVPB 4000 mg/100 mL in iso-osmotic water (40 mg/mL premix) 4,000 mg, intravenous, at 25 mL/hr, Administer over 240 Minutes, As needed, Magnesium level 1.6 mg/dL or less, Starting on Rhona 11/09/24 at 0103, Recheck magnesium level 4 hours after infusion complete. With each magnesium result continue the replacement orders as needed. ondansetron (PF) (ZOFRAN) injection 4 mg 4 mg, intravenous, Every 4 hours PRN, nausea, vomiting, Starting on Rhona 11/09/24 at 0103, Intravenous administration preferred to be given over 2-5 minutes. perflutren lipid microspheres (DEFINITY) dilution injection 1.43 mg/10 mL 2 mL, intravenous, As needed, contrast, Starting on Rhona 11/09/24 at 1040, For 6 hours, Additional Imaging Orders, Dilute 1.3 mL of Definity with 8.7mL of 0.9% NaCl in 10 mL syringe Administer 2 mL perflutren (Definity) contrast if 2 contiguous segments of the LV are not well visualized. May repeat 2 mL dose until LV visualization is accomplished. Procedure total dose not to exceed 10 mL. Given 11/09/2024 10:45 AM EDT 2 mL potassium chloride (K-TAB,KLOR-CON) CR tablet 30-50 mEq 30-50 mEq, oral, As needed, Potassium Supplementation, Starting on Rhona 11/09/24 at 0103, Progress to oral potassium replacement when patient tolerating oral intake. If dose administered, recheck potassium level 4 hours after last dose. For potassium level 3.4 to 3.8 mmol/L and GFR 30 mL/min or greater=30 mEq. For potassium level 3.1 to 3.3 mmol/L and GFR 30 mL/min or greater=40 mEq. For potassium level 3 mmol/L or less and GFR 30 mL/min or greater=50 mEq. Do not crush or chew. potassium chloride (KAYCIEL) 20 mEq/15 mL solution 30-50 mEq 30-50 mEq, oral, As needed, Potassium Supplementation, Starting on Rhona 11/09/24 at 0103, Progress to oral potassium replacement when patient tolerating oral intake. If dose administered, recheck potassium level 4 hours after last dose. For potassium level 3.4 to 3.8 mmol/L and GFR 30 mL/min or greater=30 mEq. For potassium level 3.1 to 3.3 mmol/L and GFR 30 mL/min or greater=40 mEq. For potassium level 3 mmol/L or less and GFR 30 mL/min or greater=50 mEq. Must dilute before use - Mix in 3-8 ounces of water or juice before administration When administering in feeding tube, flush before and after per policy and monitor potassium levels potassium chloride IVPB 10 mEq/100 mL in water (0.1 mEq/mL premix) 10 mEq, intravenous, at 100 mL/hr, Administer over 60 Minutes, As needed, POTASSIUM REPLACEMENT, Starting on Rhona 11/09/24 at 0103, IV if unable to use oral/enteral with the current dosing strategies Potassium level 3 mmol/L or less administer Potassium Chloride 50 mEq Potassium level 3.1 to 3.3 mmol/L administer Potassium Chloride 40 mEq Potassium level 3.4 to 3.8 mmol/L administer Potassium Chloride 30 mEq Use central line when applicable. Recheck potassium level 1 hour after total IVPB infusion complete, With each potassium result continue the replacement orders as needed VESICANT (YELLOW) Infuse each 10 mEq over a minimum of 1 hour. sennosides-docusate sodium (SENOKOT-S) 8.6-50 mg 1 tablet 1 tablet, oral, Every 12 hours PRN, constipation, Starting on Rhona 11/09/24 at 0103 sodium chloride 0.9 % flush 3 mL 3 mL, intravenous, As needed, line care, before and after each intermittent use, Starting on Rhona 11/09/24 at 0103 sodium chloride 0.9 % flush 3 mL 3 mL, intravenous, Every 12 hours scheduled, First dose on Rhona 11/09/24 at 0115 Given 11/09/2024 9:00 AM EDT 3 mL Given 11/09/2024 1:08 AM EDT 3 mL documented in this encounter Active and Recently Administered Medications Times are shown in EDT. Scheduled Medication Order 11/07/2024 11/08/2024 11/09/2024 sodium chloride 0.9 % flush 3 mL 3 mL, intravenous, Every 12 hours scheduled, First dose on Rhona 11/09/24 at 0115 0108 (Given - Provid er: Evette Henderson RN)0900 (Given - Provider: Tracy Madrigal RN)1308 ([facility] Hold - Provider: User Epic - Reason: Patient not available)1437 ([facility] Unhold - Provider: User Epic) PRN Medication Order 11/07/2024 11/08/2024 11/09/2024 acetaminophen (TYLENOL EXTRA STRENGTH) tablet 500 mg 500 mg, oral, Every 6 hours PRN, mild pain - pain scale 1-3, headaches, temperature greater than 38 C, Starting on Rhona 11/09/24 at 0103, [Warning: Total Acetaminophen not to exceed more than 4 grams (4000 mg) in 24 hours] 1308 ([facility] Hold - Pro vider: User Epic - Reason: Patient not available)1437 ([facility] Unhold - Provider: User Epic)1645 (Given - Provider: Tracy Madrigal RN) alum-mag hydroxide-simeth (MAALOX) 200-200-20 mg/5 mL suspension 30 mL 30 mL, oral, 4 times daily after meals and at bedtime as needed, dyspepsia, Starting on Rhona 11/09/24 at 0103, Look-alike/sound-alike medication - verify indication for use. Shake well., Indications: dyspepsia 1308 ([facility] Hold - Pro vider: User Epic - Reason: Patient not available)1437 ([facility] Unhold - Provider: User Epic) bupivacaine PF (MARCAINE) 0.5 % (5 mg/mL) injection (CANCELED) Code/trauma/sedation medication, Starting on Rhona 11/09/24 at 1337, Intra-Procedure (CV) 1337 (Given - Provid er: Robert Veloz MD) ceFAZolin (ANCEF) injection (CANCELED) Code/trauma/sedation medication, Starting on Rhona 11/09/24 at 1320, Intra-Procedure (CV) 1320 (Given - Provid er: Becky Gaviria RN) clindamycin-gentamicin 900-160 mg in 0.9%sod chl 1000 mL irrigation (bot) (CANCELED) Code/trauma/sedation medication, Starting on Rhona 11/09/24 at 1400, Intra-Procedure (CV) 1400 (Given - Provid er: Robert Veloz MD) dextrose (GLUTOSE) 40 % gel 15 g 15 g, oral, As needed, low blood sugar, blood glucose less than 70 mg/dL, Starting on Rhona 11/09/24 at 0104, If patient conscious and taking PO. If blood glucose is not greater than 70 mg/dL after initial treatment, repeat treatment. 1308 ([facility] Hold - Pro vider: User Epic - Reason: Patient not available)1437 ([facility] Unhold - Provider: User Epic) dextrose 5 % (D5W) infusion 100 mL/hr, intravenous, Continuous PRN, blood glucose less than 70 mg/dL, Starting on Rhona 11/09/24 at 0104, Use immediately following dextrose 50% or glucagon treatment for patients who are unconscious or NPO. Contact prescriber for additional orders. If blood glucose is not greater than 70 mg/dL after initial treatment, repeat treatment. 1308 ([facility] Hold - Pro vider: User Epic - Reason: Patient not available)1437 ([facility] Unhold - Provider: User Epic) dextrose 50 % in water (D50W) 50% solution 25 mL 25 mL, intravenous, As needed, low blood sugar, blood glucose less than 70 mg/dL and unconscious or NPO with IV access, Starting on Rhona 11/09/24 at 0104, Push over 1-3 minutes STAT. If conscious and not NPO, immediately follow with meal tray or high protein (7 grams) snack if tray not available. If NPO, initiate 5% dextrose in water at 100 mL/hr and contact prescriber for additional orders. If blood glucose is not greater than 70 mg/dL after initial treatment, repeat treatment. VESICANT (RED) Warning: HYPERTONIC solution. 1308 ([facility] Hold - Pro vider: User Epic - Reason: Patient not available)1437 ([facility] Unhold - Provider: User Epic) fentaNYL (SUBLIMAZE) injection (CANCELED) Code/trauma/sedation medication, Starting on Rhona 11/09/24 at 1337, Intra-Procedure (CV) 1337 (Given - Provid er: Becky Gaviria RN) glucagon HCL injection 1 mg 1 mg, intramuscular, As needed, low blood sugar, blood glucose less than 70 mg/dL and unconscious or NPO without IV access., Starting on Rhona 11/09/24 at 0104, If conscious and not NPO, immediately follow with meal tray or high protein (7Grams) snack if tray not available. If NPO, initiate IV 5% Dextrose/Water at 100 mL/hr and contact prescriber for additional orders. If blood glucose is not greater than 70 mg/dL after initial treatment, repeat treatment. 1308 ([facility] Hold - Pro vider: User Epic - Reason: Patient not available)1437 ([facility] Unhold - Provider: User Epic) iohexoL (OMNIPAQUE) 300 mg iodine/mL (CANCELED) Code/trauma/sedation medication, Starting on Rhona 11/09/24 at 1344, Intra-Procedure (CV) 1344 (Given - Provid er: Becky Gaviria RN - Comment: LUE venogram) lidocaine PF (XYLOCAINE) 10 mg/mL (1 %) injection (CANCELED) Code/trauma/sedation medication, Starting on Rhona 11/09/24 at 1337, Intra-Procedure (CV) 1337 (Given - Provid er: Robert Veloz MD) magnesium sulfate IVPB 2000 mg/50 mL in iso-osmotic water (40 mg/mL premix) 2,000 mg, intravenous, at 25 mL/hr, Administer over 120 Minutes, As needed, Magnesium level 1.7-1.9, Starting on Rhona 11/09/24 at 0103, Recheck magnesium level 4 hours after infusion complete. With each magnesium result continue the replacement orders as needed. 1308 ([facility] Hold - Pro vider: User Epic - Reason: Patient not available)1437 ([facility] Unhold - Provider: User Epic) magnesium sulfate IVPB 4000 mg/100 mL in iso-osmotic water (40 mg/mL premix) 4,000 mg, intravenous, at 25 mL/hr, Administer over 240 Minutes, As needed, Magnesium level 1.6 mg/dL or less, Starting on Rhona 11/09/24 at 0103, Recheck magnesium level 4 hours after infusion complete. With each magnesium result continue the replacement orders as needed. 1308 ([facility] Hold - Pro vider: User Epic - Reason: Patient not available)1437 ([facility] Unhold - Provider: User Epic) midazolam (PF) (VERSED) injection (CANCELED) Code/trauma/sedation medication, Starting on Rhona 11/09/24 at 1337, Intra-Procedure (CV) 1337 (Given - Provid er: Becky Gaviria RN) ondansetron (PF) (ZOFRAN) injection 4 mg 4 mg, intravenous, Every 4 hours PRN, nausea, vomiting, Starting on Rhona 11/09/24 at 0103, Intravenous administration preferred to be given over 2-5 minutes. 1308 ([facility] Hold - Pro vider: User Epic - Reason: Patient not available)1437 ([facility] Unhold - Provider: User Epic) perflutren lipid microspheres (DEFINITY) dilution injection 1.43 mg/10 mL 2 mL, intravenous, As needed, contrast, Starting on Rhona 11/09/24 at 1040, For 6 hours, Additional Imaging Orders, Dilute 1.3 mL of Definity with 8.7mL of 0.9% NaCl in 10 mL syringe Administer 2 mL perflutren (Definity) contrast if 2 contiguous segments of the LV are not well visualized. May repeat 2 mL dose until LV visualization is accomplished. Procedure total dose not to exceed 10 mL. 1045 (Given - Provid er: Tonja Frankel RN)1308 ([facility] Hold - Provider: User Epic - Reason: Patient not available)1437 ([facility] Unhold - Provider: User Epic) potassium chloride (K-TAB,KLOR-CON) CR tablet 30-50 mEq(Linked Group 1) 30-50 mEq, oral, As needed, Potassium Supplementation, Starting on Rhona 11/09/24 at 0103, Progress to oral potassium replacement when patient tolerating oral intake. If dose administered, recheck potassium level 4 hours after last dose. For potassium level 3.4 to 3.8 mmol/L and GFR 30 mL/min or greater=30 mEq. For potassium level 3.1 to 3.3 mmol/L and GFR 30 mL/min or greater=40 mEq. For potassium level 3 mmol/L or less and GFR 30 mL/min or greater=50 mEq. Do not crush or chew. 1308 ([facility] Hold - Pro vider: User Epic - Reason: Patient not available)1437 ([facility] Unhold - Provider: User Epic) potassium chloride (KAYCIEL) 20 mEq/15 mL solution 30-50 mEq(Linked Group 1) 30-50 mEq, oral, As needed, Potassium Supplementation, Starting on Rhona 11/09/24 at 0103, Progress to oral potassium replacement when patient tolerating oral intake. If dose administered, recheck potassium level 4 hours after last dose. For potassium level 3.4 to 3.8 mmol/L and GFR 30 mL/min or greater=30 mEq. For potassium level 3.1 to 3.3 mmol/L and GFR 30 mL/min or greater=40 mEq. For potassium level 3 mmol/L or less and GFR 30 mL/min or greater=50 mEq. Must dilute before use - Mix in 3-8 ounces of water or juice before administration When administering in feeding tube, flush before and after per policy and monitor potassium levels 1308 ([facility] Hold - Pro vider: User Epic - Reason: Patient not available)1437 ([facility] Unhold - Provider: User Epic) potassium chloride IVPB 10 mEq/100 mL in water (0.1 mEq/mL premix)(Linked Group 1) 10 mEq, intravenous, at 100 mL/hr, Administer over 60 Minutes, As needed, POTASSIUM REPLACEMENT, Starting on Rhona 11/09/24 at 0103, IV if unable to use oral/enteral with the current dosing strategies Potassium level 3 mmol/L or less administer Potassium Chloride 50 mEq Potassium level 3.1 to 3.3 mmol/L administer Potassium Chloride 40 mEq Potassium level 3.4 to 3.8 mmol/L administer Potassium Chloride 30 mEq Use central line when applicable. Recheck potassium level 1 hour after total IVPB infusion complete, With each potassium result continue the replacement orders as needed VESICANT (YELLOW) Infuse each 10 mEq over a minimum of 1 hour. 1308 ([facility] Hold - Pro vider: User Epic - Reason: Patient not available)1437 ([facility] Unhold - Provider: User Epic) sennosides-docusate sodium (SENOKOT-S) 8.6-50 mg 1 tablet 1 tablet, oral, Every 12 hours PRN, constipation, Starting on Rhona 11/09/24 at 0103 1308 ([facility] Hold - Pro vider: User Epic - Reason: Patient not available)1437 ([facility] Unhold - Provider: User Epic) sodium chloride 0.9 % flush 10 mL 10 mL, intravenous, Once as needed, line care, for use for echo contrast only, Starting on Rhona 11/09/24 at 1040, For 6 hours, Additional Imaging Orders 1308 ([facility] Hold - Pro vider: User Epic - Reason: Patient not available)1437 ([facility] Unhold - Provider: User Epic) sodium chloride 0.9 % flush 3 mL 3 mL, intravenous, As needed, line care, before and after each intermittent use, Starting on Rhona 11/09/24 at 0103 1308 ([facility] Hold - Pro vider: User Epic - Reason: Patient not available)1437 ([facility] Unhold - Provider: User Epic) vancomycin (VANCOCIN) 1,000 mg in sodium chloride 0.9 % 250 mL IVPB (COMPLETED) Administer over 60 Minutes, Code/trauma/sedation continuous med, Starting on Rhona 11/09/24 at 1319, Intra-Procedure (CV) 1319 (New Bag - Prov ider: Becky Gaviria RN) Linked Groups Order Group 1: potassium chloride (K-TAB,KLOR-CON) CR tablet 30-50 mEqJump to med 30-50 mEq, oral, As needed, Potassium Supplementation, Starting on Rhona 11/09/24 at 0103, Progress to oral potassium replacement when patient tolerating oral intake. If dose administered, recheck potassium level 4 hours after last dose. For potassium level 3.4 to 3.8 mmol/L and GFR 30 mL/min or greater=30 mEq. For potassium level 3.1 to 3.3 mmol/L and GFR 30 mL/min or greater=40 mEq. For potassium level 3 mmol/L or less and GFR 30 mL/min or greater=50 mEq. Do not crush or chew. Or potassium chloride (KAYCIEL) 20 mEq/15 mL solution 30-50 mEqJump to med 30-50 mEq, oral, As needed, Potassium Supplementation, Starting on Rhona 11/09/24 at 0103, Progress to oral potassium replacement when patient tolerating oral intake. If dose administered, recheck potassium level 4 hours after last dose. For potassium level 3.4 to 3.8 mmol/L and GFR 30 mL/min or greater=30 mEq. For potassium level 3.1 to 3.3 mmol/L and GFR 30 mL/min or greater=40 mEq. For potassium level 3 mmol/L or less and GFR 30 mL/min or greater=50 mEq. Must dilute before use - Mix in 3-8 ounces of water or juice before administration When administering in feeding tube, flush before and after per policy and monitor potassium levels Or potassium chloride IVPB 10 mEq/100 mL in water (0.1 mEq/mL premix)Jump to med 10 mEq, intravenous, at 100 mL/hr, Administer over 60 Minutes, As needed, POTASSIUM REPLACEMENT, Starting on Rhona 11/09/24 at 0103, IV if unable to use oral/enteral with the current dosing strategies Potassium level 3 mmol/L or less administer Potassium Chloride 50 mEq Potassium level 3.1 to 3.3 mmol/L administer Potassium Chloride 40 mEq Potassium level 3.4 to 3.8 mmol/L administer Potassium Chloride 30 mEq Use central line when applicable. Recheck potassium level 1 hour after total IVPB infusion complete, With each potassium result continue the replacement orders as needed VESICANT (YELLOW) Infuse each 10 mEq over a minimum of 1 hour. documented in this encounter Additional Health Concerns Assessment Noted Time PHQ-9 Depression Total Score: 0 11/10/19 11:28 AM EDT documented as of this encounter Care Teams Brancher Relationship Specialty Start Date End Date Brandi Alvarado, [employer] [address] [place] [address] PCP - General Nurse Practitioner 11/08/24 documented as of this encounter
--- OUTSIDE RECORDS SUMMARY | 2024-11-09 13:30 | XMS_ITS | Encounter Summary ---
Author Organization [facility] tem Address [id number] [address] [place] [address] Care Team Providers Care Printed Circuit Board Assembler Name Role Phone Brandi Collins Janeth MCLEAN-COMPUTER AIDED DRAFTER Primary Care Provider [phone] Reason for Visit * Auth/Cert Specialty Diagnoses / Procedures Referred By Contac t Referred To Contact Diagnoses AV block [address] [address] Referral ID Status Reason Start Date Expiration Date Visits Re quested Visits Authorized [id number] 1 1 Encounter Details Date Type Department Care Team (Late st Contact Info) Description 11/09/2024 1:30 PM EDT - 11/09/2024 3:00 PM EDT Surgery [facility] [address] [place] [id number] Robert Veloz MD [address] [place] [address] EP Invasive DC PPM Surgery Details Date/Time Status Location OR Service Patient Class Case Class Case Type Trauma Case? 11/09/2024 1:30 PM Posted [facility] (EP) [facility] LAB 1 Cardiology Inpatient Elective Panel 1 Procedure LRB Anes Op Region Wound Class Comments EP Invasive DC PPM Left Moderate Sedation Surgeon Surgeon Role Service Panel Robert Veloz MD Primary Cardiology 1 documented in this encounter Social History Tobacco Use Types Packs/Day Years Used Date Smoking Tobacco: Former Cigarettes Q uit: 01/04/2017 Smokeless Tobacco: Never Alcohol Use Standard Drinks/Week Comments Not Currently 0 (1 standard drink = 0.6 oz pur e alcohol) [facility] Utilities Answer Date Recorded In the past 12 months has th e electric, gas, oil, or water company threatened [...] Sign Reading Time Taken Comments Blood Pressure 134/77 11/09/2024 3:00 PM EDT Pulse 88 11/09/2024 3:00 PM EDT Temperature 36.5 C (97.7 F) 11/09/2024 11:41 AM EDT Respiratory Rate 22 11/09/2024 3:00 PM EDT Oxygen Saturation 93% 11/09/2024 3:00 PM EDT Inhaled Oxygen Concentration - - Weight 94.8 kg (208 lb 15.9 oz) 11/09/2024 7:30 AM EDT Height 172.7 cm (5' 8 ) 11/09/2024 7:30 AM EDT Body Mass Index 31.78 11/09/2024 7:30 AM EDT documented in this encounter Functional Status * Audit-C Score Answer Date of Assessment Author 1 11/09/2024 11:28 AM Mary Ellen Astorga RN * Intimate Partner Violence Question Answer [...] from the original note were not included. [facility] INTERNAL MEDICINE [facility] - GEN 2 ACUTE [facility] [id number] Hospital Medicine History & Physical Patient: Frantz Roa II Date of : 1960 Room: [place] [address] PCP: CLINT PRINCE Admission date: 11/09/2024 12:47 AM Encounter date: 11/09/24 Hospital Day: 1 SUBJECTIVE Frantz Roa II is a 64 y.o. male who presents with past medical history significant for postobstructive pneumonia, squamous cell lung cancer, gout, BPH, AV block, syncope. Patient was admitted at [facility] a week ago after a syncopal event, he was found to be in complete heart block, also found to have pneumonia. He was treated for pneumonia, was not worked up for the heart block. Presented to [facility] 11/08/2024 for bradycardia, states that his heart rate was down into the 20s. States that he will become flushed during these episodes, had a syncopal event about a week ago, was admitted at [place] for a total of 2 days for [...] history of Arthritis, Hypertension, and Lung cancer ([facility]). Past Surgical History: Patient has [...] Intake/Output Summary (Last 24 hours) at 11/09/2024 1755 Last data filed at 11/09/2024 1600 Gross [...] 10/23/2024 Narrative: Images were obtained outside of [facility] HOSPITAL PROBLEM LIST Principal Problem: AV block Active Problems: BPH with urinary obstruction Gout Squamous cell lung cancer ([facility]) ASSESSMENT & PLAN Intermittent AV block, Syncope Admitted at [place] 2024 after syncopal event EKG with evidence [...] WOOD 11/09/2024 5:55 PM [facility] Internal Medicine 7AM-7PM & 7PM-7AM: EpicChat or page through On-Call Finder. CLINT Wood 11/09/24 2604 Physician Attestation I, Colby Johnson MD, personally [...] PROCEDURE: PERMANENT PACEMAKER IMPLANT IMPLANTED DEVICE INFORMATION: Revisu pulse generator, model L311, serial number [id number] at the L prepectoral site. Atrial lead 7841, 52 cm, serial number [id number]. Right ventricular lead 7842, 59 cm, serial number [id number]. ATTENDING PROVIDER: Robert Veloz MD/SABA, LOCATED WITHIN [facility] MODERATE SEDATION FOR PROCEDURE: Moderate sedation was [...] for device check. Robert Veloz MD/SABA, FAC, RS Cardiac Odd Piece Checker [facility] at [facility] documented in this encounter Consult Notes * Robert Veloz MD - 11/09/2024 6:06 AM EDT Images from the original note were not included. [facility] Cardiology - Electrophysiology [facility] [place] [address] CONSULTATION PATIENT NAME: Frantz Roa II : 1960 AGE: 64 y.o. Date of Admission: 11/09/2024 Date of Consultation: 11/09/2024 Primary Odd Piece Checker: None SUBJECTIVE REASON FOR CONSULT: syncope, high-degree block HISTORY OF PRESENT ILLNESS: 64M w/ PMH RLL lung mass c/b malignancy, HTN who presented to [facility] afterbeing seen at [facility] outpatient [facility]ology office for syncope. He was recently admitted at [facility] 2024 after an episode of syncope, EKG on admission demonstrated complete heart blockwith junctional escape 50 BPM, his home Toprol 25 mg qday was held. He was also diagnosed with post-obstructive PNA as well, and has previously undergone bx of his RLL mass at [facility]. He was discharged w/o any further evaluation of his CHB. No recent TTE. EKG at [facility] w/ sinus rhythm, [id number] ms. Lab work on admission at [place] did not show significant electrolyte abnormalities, but [...] of signature, he had sudden onset syncope. [place] back to normal afterwards. PAST MEDICAL HISTORY Past Medical History: Diagnosis Date Arthritis Hypertension Lung cancer (CMS-HCC) SURGICAL HISTORY has a past surgical history [...] morning. Not In System Ref Prov PEPSIN/GA/OXBILE/PANCREAT/BET (CFSXBZ-IAP-TH HPOF-MAG-FAN-PAP ORAL) Take by mouth. Patient not taking: Reported on 11/08/2024 Not In System Ref Prov predniSONE (DELTASONE) 10 mg tablet Take 1 tablet (10 mg total) by mouth in the morning. Tapered dose. Not In System Ref Prov tamsulosin (FLOMAX) 0.4 mg capsule,extended release 24hr Take 1 capsule (0.4 mg total) by mouth once daily for 90 days. 06/23/17 09/21/17 CLINT Oseguera varenicline (CHANTIX CONTINUING MONTH BOX) 1 mg tablet Take 1 tablet (1 mg total) by mouth 2 (two) times a day. Take with full glass of water. Patient not taking: Reported on 11/08/2024 03/31/17 CLINT Goel ALLERGIES Bactrim [sulfamethoxazole-trimethoprim] and Codeine REVIEW OF [...] pacing so would not change decision regarding CAR PARK ATTENDANT. Has beenkept NPO overnight, will plan for later today. Orders for pacemaker placed, patient will be consented at bedside. Avoid heparin products. Robert Veloz MD/SABA, LOCATED WITHIN [facility] Cardiac Electrophysiology This note was completed using a voice import customer service manager system. Every effort was made to ensure accuracy. However, inadvertent computerized import customer service manager errors may be present. * Sofiya Eisenberg, GENETIC SCIENTIST-COMPUTER AIDED DRAFTER - 11/09/2024 3:44 AM EDTAssociated Order(s): IP CONSULT TO CARDIOLOGY Images from the original note were not included. Maritza Best MD Physician Cardiology Progress Notes Signed Encounter Date: 11/08/2024 Signed Expand All Collapse All[]Expand All by Default Frantz Shawey Crispin ANSARI Date of visit: 11/08/2024 Date of : [...] pain.(Patient not taking: Reported on 11/08/2024) PEPSIN/GA/OXBILE/PANCREAT/BET (AIEWLF-IIW-ST JAQS-JMY-RYF-PAP ORAL) Take by mouth. (Patient not taking: [...] Chief Complaint Patient presents with New Patient EATING DISORDER PSYCHOLOGIST SELF REFERRAL LOW HR ISSUES, RECENTLY DIAGNOSED WITH LUNG CANCER RIGHT LOWER LOBE, SCHED W/ History of Present Illness Patient with history of recent diagnosis of right lower lung mass measures 7.1 by 4.8. With involvement of the lymph node, history of diverticulitis, Patient was seen at [facility] following syncope hardware with about 40 [...] History: Diagnosis Date Arthritis Hypertension Lung cancer ([facility]) No data recorded No data recorded No data recorded Surgical History Past Surgical History: Procedure Laterality Date SKIN BIOPSY basal cell carcinoma removed from left pentecostalism TONSILLECTOMY TURP / TRANSURETHRAL INCISION / DRAINAGE [...] emergency room to be transferred to [facility] for pacemaker evaluation to suggest 2D echo and nuclear stress test Follow-up with me in 6 months if needed TODAYS ORDERS Orders Placed This Encounter Procedures POCT EKG FOLLOW UP Return in about 6 months (around 05/11/2025). PCP: BRANDI COLLINS, GENETIC SCIENTIST-COMPUTER AIDED DRAFTER Referring Physician: Alina Ragland MD [address] [place] [phone] 1545 CLINT Kumar 11/09/24 0345 documented in this encounter Miscellaneous Notes * [...] Treatment Plan Note Patient underwent successful left-sided [employer] dual-chamber pacemaker implantation with me today [...] callback with any questions. Robert Veloz MD/SABA, FACC, RS Cardiac Electrophysiology * Pre-Sedation Documentation - Robert Veloz MD - 11/09/2024 9:12 AM EDT Pre Procedure Evaluation: H&P was reviewed and the patient was examined. No change has occurredin the patient's condition since the H&P was completed. ASA: 3 Mallampati: II Sedation plan and risks discussed with: patient Electrocardiac Assessment Method: Claims Investigator * Discharge Planning Note - Faye Chow RN - 11/09/2024 9:07 AM EDT Initial Assessment Medical focus: cardiology testing/plan. Met with patient and at bedside to confirm the initial assessment info below: Initial Assessment Flowsheet Row Most Recent Value Patient Information Initial Pre-Hospitalization Assessment Completed? Completed Primary Caregiver Self Accompanied by/Relationship , Kim Support System Spouse/Significant Other Uatsdin/Cultural Factors No Discharge Planning Living Arrangements Spouse/significant [...] Description: INTERVENTIONS: 1. Encourage patient or legal fuels sales representative to report early pain and ask [...] per policy 9. Teach patient or legal fuels sales representative interventions for comforting Outcome: Progressing Note: [...] at the bedside 7. Instruct patient/ patient fuels sales representative about use of safety devices 8. Include patient/ patient fuels sales representative in decisions related to safety Outcome: [...] hygiene technique. 7. Identify and instruct patient/patient fuels sales representative in use of appropriate isolation precautionsfor identified infection/symptoms. 8. Provide and discuss with patient/patient fuels sales representative on educational MDRO sheet. 9. Encourage and monitor nutritional status daily and consult print color operator if indicated. 10. Implement neutropenic guidelines as needed. Outcome: Progressing Note: Evaluation of progress towards goal: No active infections Problem: Knowledge Deficit Goal: Patient/patient fuels sales representative demonstrates understanding of disease process, treatment [...] Score of =/> [address] [facility] Assessment Goal: Patient should be free from fall Description: Interventions: 1. Delaplane to environment 2. Hourly rounds addressing the [...] non-skid footwear 11. Teach patient and patient fuels sales representative to maintain environment for safety and [...] (cane, walker) within reach 19. Request patient fuels sales representative bring adaptive equipment/mobility aids from home or obtain and provide as needed 20. Consult pharmacy regarding effects of med's affecting mobility, cognition, and alternatives 21. Obtain physician order for PT if risk factors associated with mobility are present 22. Obtain physician order for OT as appropriate 23. Utilize diversional activities 24. Educate patient and patient fuels sales representative how to maintain a safe environment during visitationtimes (notify nurse prior to leaving bedside) 25. Consider appropriateness of medical or non-manager medical device 26. Set up voiding schedule as appropriate [...] Description: INTERVENTIONS: 1. Encourage patient or legal fuels sales representative to report early pain and ask [...] per policy 9. Teach patient or legal fuels sales representative interventions for comforting Outcome: Progressing Note: [...] at the bedside 7. Instruct patient/ patient fuels sales representative about use of safety devices 8. Include patient/ patient fuels sales representative in decisions related to safety Outcome: [...] hygiene technique. 7. Identify and instruct patient/patient fuels sales representative in use of appropriate isolation precautionsfor identified infection/symptoms. 8. Provide and discuss with patient/patient fuels sales representative on educational MDRO sheet. 9. Encourage and monitor nutritional status daily and consult print color operator if indicated. 10. Implement neutropenic guidelines as [...] Office Visit [facility] [address] [place] [address] Bishop Milan, VINAY-COMPUTER AIDED DRAFTER [address], [place] [id number] 12/07/2024 9:00 AM EDT Clinical Support [facility] [address] [place] [address] documented as of this encounter Goals Goal Patient Goal Type Associated Problems Recent Progress Patient-Stated? Author Discharge home General Yes Faye Chow, RN Note: Evaluation of progress towards goal: [...] consistent with pneumonia. No pneumothorax. Finalized by Eluid Colin MD on 11/09/2024 4:20 PM Procedure Note Eliud Colin MD - 11/09/2024 History: check for pneumothorax Exam/Technique: PA and lateral chest Comparison: None. Findings: Basal changes bilaterally with the right lower lobe/pneumonicconsolidation. Cardiac and mediastinal contours are within normal limits.Pacemaker on the left. IMPRESSION: Basal consolidation consistent with pneumonia. Nopneumothorax. Finalized by Eliud Colin MD on 11/09/2024 4:20 PM Robert Veloz MD IMG DIAGNOSTIC IMAGING ORDERABLE S Final Result * EP INVASIVE (11/09/2024 2:10 PM EDT) Jamari ELAM - 11/09/2024 2:12 PM EDT Successful implantation of a dual chamber permanent pacemaker Procedure Details PROCEDURE: PERMANENT PACEMAKER IMPLANT IMPLANTED DEVICE INFORMATION: Revisu pulse generator, model L311, serial number [id number] at the L prepectoral site. Atrial lead 7841, 52 cm, serial number [id number]. Right ventricular lead 7842, 59 cm, serial number [id number]. ATTENDING PROVIDER: Robert Veloz MD/SABA, LOCATED WITHIN [facility] MODERATE SEDATION FOR PROCEDURE: Moderate sedation was [...] for device check. Robert Veloz MD/SABA, FACC, RS Cardiac Odd Piece Checker [facility] us Robert Veloz MD CV [...] proximal 13 cm XCELERA Left Ventricle Mass 188.90350 [id number] 4 g XCELERA Interventricular Septum Diastolic Thickness [...] ventricular wall motion is normal. Sofiya Eisenberg APRN-[facility] CV ECHO ORDERABLES Fi nal Result * Lactate w/ Reflex (11/09/2024 2:41 AM EDT) LACTATE W/REFLEX 1.1 0.4 - 2.0 mmol/L 11/09/2024 4:26 AM EDT [facility] Blood Venous blood / Unknown 11/09/2024 2:41 AM EDT 11/09/2024 2:41 AM EDT Narrative [facility] - 11/09/2024 4:26 AM EDT Result did not trigger repeat Lactate, re-order if needed. Lauren Guardado GENETIC SCIENTIST-COMPUTER AIDED DRAFTER LAB BLOOD ORDERABLES Final Result [facility] [address] [place] [address], [place] [phone] * (ABNORMAL) Procalcitonin (11/09/2024 2:41 AM EDT) PROCALCITONIN 0.08(H) <0.05 ng/mL 11/09/2024 3:31 AM EDT [facility] Blood 11/09/2024 2:41 AM EDT 11/09/2024 2:41 AM EDT Narrative [facility] - 11/09/2024 3:31 AM EDT <0.50 ng/mL - Low risk of severe sepsis and/or septic shock. <2.00 ng/mL - Recommend retesting within 6-24 hours. >2.00 ng/mL - High risk of sepsis and/or septic shock. us Lauren Guardado GENETIC SCIENTIST-COMPUTER AIDED DRAFTER LAB BLOOD ORDERABLES Final Result [facility] [address] [place] [address], [place] [phone] * (ABNORMAL) Comprehensive metabolic panel (11/09/2024 2:41 AM EDT) SODIUM 138 134 - 146 mmol/L 11/09/2024 3:28 AM EDT [facility] POTASSIUM 4.2 3.5 - 5.0 mmol/L 11/09/2024 3:28 AM EDT [facility] CHLORIDE 100 98 - 109 mmol/L 11/09/2024 3:28 AM EDT [facility] CARBON DIOXIDE 28 22 - 32 mmol/L 11/09/2024 3:28 AM EDT [facility] ANION GAP 10 5 - 15 mmol/L 11/09/2024 3:28 AM EDT [facility] BLOOD UREA NITROGEN 25 5 - 27 mg/dL 11/09/2024 3:28 AM EDT [facility] CREATININE 0.65 0.60 - 1.30 mg/dL 11/09/2024 3:28 AM EDT [facility] Comment:METHOD TRACEABLE TO IDMS STANDARD GLUCOSE 104(H) 65 - 99 mg/dL 11/09/2024 3:28 AM EDT [facility] CALCIUM 8.6 8.5 - 10.5 mg/dL 11/09/2024 3:28 AM EDT [facility] TOTAL PROTEIN 5.8(L) 6.0 - 8.0 g/dL 11/09/2024 3:28 AM EDT [facility] ALBUMIN 3.4 3.2 - 5.3 g/dL 11/09/2024 3:28 AM EDT [facility] ALKALINE PHOSPHATASE 53 39 - 130 U/L 11/09/2024 3:28 AM EDT [facility] AST 13 <=41 U/L 11/09/2024 3:28 AM EDT [facility] ALT 26 <=40 U/L 11/09/2024 3:28 AM EDT [facility] BILIRUBIN,TOTAL 0.4 0.3 - 1.2 mg/dL 11/09/2024 3:28 AM EDT [facility] EGFR Non-Race Dependent >90 >=60 ml/min/1.7 3sq.m 11/09/2024 3:28 AM EDT [facility] Comment: Reported eGFR is based on the CKD-EPI 2020 equation that does not use a race coefficient. Blood 11/09/2024 2:41 AM EDT 11/09/2024 2:41 AM EDT Lauren Guardado GENETIC SCIENTIST-COMPUTER AIDED DRAFTER LAB BLOOD ORDERABLES Final Result [facility] [address] [place] [address], * (ABNORMAL) CBC auto differential (11/09/2024 2:41 AM EDT) WBC 15.7(H) 4 - 11 x10E9/L 11/09/2024 3:57 AM EDT [facility] RBC Count 4.25 4.1 - 5.7 X10E12/L 11/09/2024 3:57 AM EDT [facility] Hemoglobin 11.7(L) 13 - 17 g/dL 11/09/2024 3:57 AM EDT [facility] Hematocrit 35.1(L) 39 - 50 % 11/09/2024 3:57 AM T [facility] MCV 83 80 - 100 fL 11/09/2024 3:57 AM T [facility] MCH 27.6 27 - 34 pg 11/09/2024 3:57 AM T [facility] MCHC 33.4 32 - 36 g/dL 11/09/2024 3:57 AM T [facility] RDW 16.5(H) 11.5 - 15 % 11/09/2024 3:57 AM T [facility] Platelet Count 254 150 - 450 X10E9/L 11/09/2024 3:57 AM [facility] MPV 6.9(L) 7 - 12 fL 11/09/2024 3:57 AM [facility] Myelocyte 1 % 11/09/2024 3:57 AM T [facility] Comment:This is an appended report. These results have been appended to a previously preliminary verified report. Metamyelocytes Relative 2 % 11/09/2024 3:57 AM [facility] Comment:This is an appended report. These results have been appended to a previously preliminary verified report. Neutrophils Relatives 73 % 11/09/2024 3:57 AM [facility] Comment:This is an appended report. These results have been appended to a previously preliminary verified report. Lymphocytes Relative 11 % 11/09/2024 3:57 AM T [facility] Comment:This is an appended report. These results have been appended to a previously preliminary verified report. Monocytes Relative 11 % 11/09/2024 3:57 AM [facility] Comment:This is an appended report. These results have been appended to a previously preliminary verified report. Eosinophils Relative 1 % 11/09/2024 3:57 AM [facility] Comment:This is an appended report. These results have been appended to a previously preliminary verified report. Neutrophils Absolute (M) 11.5(H) 1.5 - 6.6 10*3/uL 11/09/2024 3:57 AM EDT [facility] Comment:This is an appended report. These results have been appended to a previously preliminary verified report. Lymphocytes Absolute 1.8 1.0 - 3.5 10*3/uL 11/09/2024 3:57 AM EDT [facility] Comment:This is an appended report. These results have been appended to a previously preliminary verified report. Monocytes Absolute 1.8(H) 0.0 - 0.9 10*3/uL 11/09/2024 3:57 AM EDT [facility] Comment:This is an appended report. These results have been appended to a previously preliminary verified report. Eosinophils Absolute 0.2 0.0 - 0.4 10*3/uL 11/09/2024 3:57 AM EDT [facility] Comment:This is an appended report. These results have been appended to a previously preliminary verified report. RBC Morphology Normal 11/09/2024 3:57 AM EDT [facility] Comment:This is an appended report. These results have been appended to a previously preliminary verified report. Differential Type CELLAVISION DIFFERENTIAL 11/09/2024 3:57 AM EDT [facility] Comment:This is an appended report. These results have been appended to a previously preliminary verified report. Blood 11/09/2024 2:41 AM EDT 11/09/2024 2:41 AM EDT Lauren Guardado GENETIC SCIENTIST-COMPUTER AIDED DRAFTER LAB BLOOD ORDERABLES Final Result [facility] [address] [place] [address], [place] [phone] documented in this encounter Visit Diagnoses Diagnosis AV block- Primary Unspecified atrioventricular block BPH with urinary obstruction Hypertrophy of prostate with urinary obstruction and other lower urinary tract symptoms (LUTS) Gout Gout, unspecified Intermittent complete heart block (CMS-HCC) documented in [...] indication for use. Umesh call., Indications: dyspepsiaIndications:dyspepsia bupivacaine PF (MARCAINE) 0.5 % (5 mg/mL) injection Code/trauma/sedation medication, Starting on Rhona 11/09/24 at 1337, Intra-Procedure (CV) Given 11/09/2024 1:37 PM EDT 10 mL ceFAZolin (ANCEF) injection Code/trauma/sedation medication, Starting on Rhona 11/09/24 at 1320, Intra-Procedure (CV) Given 11/09/2024 1:20 PM EDT 2,000 mg clindamycin-gentamicin 900-160 mg in 0.9%sod chl 1000 mL irrigation (bot) Code/trauma/sedation medication, Starting on Rhona 11/09/24 at 1400, Intra-Procedure (CV) Given 11/09/2024 2:00 PM EDT 300 mL dextrose (GLUTOSE) 40 % gel 15 g [...] repeat treatment. VESICANT (RED) Warning: HYPERTONIC solution. fentaNYL (SUBLIMAZE) injection Code/trauma/sedation medication, Starting on Rhona 11/09/24 at 1337, Intra-Procedure (CV) Given 11/09/2024 1:37 PM EDT 50 mcg glucagon HCL injection 1 mg 1 mg, [...] 70 mg/dL after initial treatment, repeat treatment. iohexoL (OMNIPAQUE) 300 mg iodine/mL Code/trauma/sedation medication, Starting on Rhona 11/09/24 at 1344, Intra-Procedure (CV) Given 11/09/2024 1:44 PM EDT 10 mL lidocaine PF (XYLOCAINE) 10 mg/mL (1 %) injection Code/trauma/sedation medication, Starting on Rhona 11/09/24 at 1337, Intra-Procedure (CV) Given 11/09/2024 1:37 PM EDT 10 mL magnesium sulfate IVPB 2000 mg/50 mL in [...] result continue the replacement orders as needed. midazolam (PF) (VERSED) injection Code/trauma/sedation medication, Starting on Rhona 11/09/24 at 1337, Intra-Procedure (CV) Given 11/09/2024 1:37 PM EDT 2 mg ondansetron (PF) (ZOFRAN) injection 4 mg 4 [...] Given 11/09/2024 1:08 AM EDT 3 mL vancomycin (VANCOCIN) 1,000 mg in sodium chloride 0.9 % 250 mL IVPB Administer over 60 Minutes, Code/trauma/sedation continuous med, Starting on Rhona 11/09/24 at 1319, Intra-Procedure (CV) New Bag 11/09/2024 1:19 PM EDT 1,000 mg 250 mL/hr documented in this encounter Active and Recently Administered Medications Times are shown in EDT. Scheduled Medication Order 11/07/2024 11/08/2024 11/09/2024 sodium chloride 0.9 % flush 3 mL 3 mL, intravenous, Every 12 hours scheduled, First dose on Rhona 11/09/24 at 0115 0108 (Given - Provid er: Evette Henderson RN)0900 (Given - Provider: Tracy Madrigal RN)1308 (AUG Hold - Provider: User Epic - Reason: Patient not available)1437 (AUG Unhold - Provider: User Epic) PRN Medication Order 11/07/2024 11/08/2024 11/09/2024 acetaminophen (TYLENOL EXTRA STRENGTH) tablet 500 mg 500 mg, oral, Every 6 hours PRN, mild pain - pain scale 1-3, headaches, temperature greater than 38 C, Starting on Rhona 11/09/24 at 0103, [Warning: Total Acetaminophen not to exceed more than 4 grams (4000 mg) in 24 hours] 1308 (AUG Hold - Pro vider: User Epic - Reason: Patient not available)1437 (AUG Unhold - Provider: User Epic)1645 (Given - Provider: Tracy Madrigal RN) alum-mag hydroxide-simeth (MAALOX) 200-200-20 mg/5 mL suspension 30 mL 30 mL, oral, 4 times daily after meals and at bedtime as needed, dyspepsia, Starting on Rhona 11/09/24 at 0103, Look-alike/sound-alike medication - verify indication for use. Shake well., Indications: dyspepsia 1308 (AUG Hold - Pro vider: User Epic - Reason: Patient not available)1437 (AUG Unhold - Provider: User Epic) bupivacaine PF [...] mg/dL after initial treatment, repeat treatment. 1308 ([facility] Hold - Pro vider: User Epic - Reason: Patient not available)1437 ([facility] Unhold - Provider: User Epic) [...] mg/dL after initial treatment, repeat treatment. 1308 ([facility] Hold - Pro vider: User Epic - Reason: Patient not available)1437 ([facility] Unhold - Provider: User Epic) [...] treatment. VESICANT (RED) Warning: HYPERTONIC solution. 1308 ([facility] Hold - Pro vider: User Epic - Reason: Patient not available)1437 ([facility] Unhold - Provider: User Epic) [...] mg/dL after initial treatment, repeat treatment. 1308 ([facility] Hold - Pro vider: User Epic - Reason: Patient not available)1437 ([facility] Unhold - Provider: User Epic) [...] continue the replacement orders as needed. 1308 ([facility] Hold - Pro vider: User Epic - Reason: Patient not available)1437 ([facility] Unhold - Provider: User Epic) magnesium sulfate IVPB 4000 mg/100 mL in iso-osmotic water (40 mg/mL premix) 4,000 mg, intravenous, at 25 mL/hr, Administer over 240 Minutes, As needed, Magnesium level 1.6 mg/dL or less, Starting on Rhona 11/09/24 at 0103, Recheck magnesium level 4 hours after infusion complete. With each magnesium result continue the replacement orders as needed. 1308 ([facility] Hold - Pro vider: User Epic - Reason: Patient not available)1437 ([facility] Unhold - Provider: User Epic) midazolam (PF) (VERSED) injection (CANCELED) Code/trauma/sedation medication, Starting on Rhona 11/09/24 at 1337, Intra-Procedure (CV) 1337 (Given - Provid er: Becky Gaviria RN) ondansetron (PF) (ZOFRAN) injection 4 mg 4 mg, intravenous, Every 4 hours PRN, nausea, vomiting, Starting on Rhona 11/09/24 at 0103, Intravenous administration preferred to be given over 2-5 minutes. 1308 ([facility] Hold - Pro vider: User Epic - Reason: Patient not available)1437 ([facility] Unhold - Provider: User Epic) [...] (Given - Provid er: Tonja Frankel RN)1308 ([facility] Hold - Provider: User Epic - Reason: Patient not available)1437 ([facility] Unhold - Provider: User Epic) [...] mEq. Do not crush or chew. 1308 ([facility] Hold - Pro vider: User Epic - Reason: Patient not available)1437 ([facility] Unhold - Provider: User Epic) [...] per policy and monitor potassium levels 1308 ([facility] Hold - Pro vider: User Epic - Reason: Patient not available)1437 ([facility] Unhold - Provider: User Epic) [...] over a minimum of 1 hour. 1308 ([facility] Hold - Pro vider: User Epic - Reason: Patient not available)1437 ([facility] Unhold - Provider: User Epic) sennosides-docusate sodium (SENOKOT-S) 8.6-50 mg 1 tablet 1 tablet, oral, Every 12 hours PRN, constipation, Starting on Rhona 11/09/24 at 0103 1308 ([facility] Hold - Pro vider: User Epic - Reason: Patient not available)1437 ([facility] Unhold - Provider: User Epic) sodium chloride 0.9 % flush 10 mL 10 mL, intravenous, Once as needed, line care, for use for echo contrast only, Starting on Rhona 11/09/24 at 1040, For 6 hours, Additional Imaging Orders 1308 ([facility] Hold - Pro vider: User Epic - Reason: Patient not available)1437 ([facility] Unhold - Provider: User Epic) sodium chloride 0.9 % flush 3 mL 3 mL, intravenous, As needed, line care, before and after each intermittent use, Starting on Rhona 11/09/24 at 0103 1308 ([facility] Hold - Pro vider: User Epic - Reason: Patient not available)1437 ([facility] Unhold - Provider: User Epic) [...] Time PHQ-9 Depression Total Score: 0 11/10/19 25 11:28 AM EDT documented as of this encounter Care Teams Printed Circuit Board Assembler Relationship Specialty Start Date End Date Brandi Collins, VINAY-COMPUTER AIDED DRAFTER [address] [place] [address] PCP - General Nurse Practitioner 11/08/24 documented as of this encounter
--- OUTSIDE RECORDS SUMMARY | 2024-11-13 08:40 | XMS_ITS | Encounter Summary ---
Author Organization [facility] Address [address] [place] [address] Care Team Providers Care Duck Operator Name Role Phone LawDoug caalVamsi Primary Care Provider + [phone] Brandi Alvarado APRN.[facility] Primary Care Provider [phone] Source Comments In the event this information is protected by the Federal Confidentiality of Alcohol and Drug AbusePatient Records regulations: The Federal rules restrict any use of the information to criminally investigate or prosecute any alcohol or drug abuse patient.[facility] Reason for Visit * Reason Comments Results Dept. of Neurology R eport Encounter Details Date Type Department Care Team (Late st Contact Info) Description 03/25/2006 Abstract Neurology [address] [place] [address] Laith Norton MD [address] [place] [address] Results (Dept. of Neurology Report) [...] AM EDT Office Visit Pulmonary Medicine [address] [address] Alexandre Robertson MD [address] [place] [address] New Consultation 11/15/2024 12:10 PM EDT Procedure Cardiology [address] [address] PreOp Testing 11/17/2024 1:00 PM EDT Office Visit Radiation Oncology [address] [place] [address] [place] [address] Ezra Moreno MD [address] [place] [address] [place] [address] Consult dx Lung cancer 11/17/2024 2:00 PM EDT Visit (SP) Office Hematology/Oncology [address] [place] [address] [place] [address] Kvng Perez MD [address] [facility] [place] [address] 2 week follow up 11/20/2024 11:30 AM EDT Hospital Encounter Admitting [address] [address] Alexandre Robertson MD [address] [place] [address] 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] 11/20/2024 11:30 AM EDT - 11/20/2024 1:30 PM EDT Surgery Admitting [address] [address] Alexandre Robertson MD [address] [place] [address] BRONCHOSCOPY FLEXIBLE ADULT 11/30/2024 3:30 PM EDT [facility] Nutrition Therapy [address] [place] [address] Jesusita Pabon, JAMIL [address] [place] [address] Follow up lung/ severe weight loss Scheduled Procedures Name Priority Associated Diagnoses Date/Ti me BRONCHOSCOPY FLEXIBLE ADULT Bronchiolar disease 11/20/2024 11:30 AM EDT documented as of this encounter Visit Diagnoses Not on filedocumented in this encounter Care Teams Duck Operator Relationship Specialty Start Date End Date Doug Bowles PCP - General 02/23/06 10/26/24 Brandi Alvarado, BANJO REPAIR PERSON.OPTICS MANUFACTURING TECHNICIAN [address] [place] [address] PCP - General Nurse Practitioner 10/27/24 documented as of this encounter
--- OUTSIDE RECORDS SUMMARY | 2024-11-13 08:40 | XMS_ITS | Encounter Summary ---
Author Organization [facility] Address [address] [place], [place] [id number] Care Team Providers Care Surveillance Manager Name Role Phone Jenny Brandi Fowler APRN.[facility] Primary Care Provider [phone] Source Comments In the event this information is protected by the Federal Confidentiality of Alcohol and Drug AbusePatient Records regulations: The Federal rules restrict any use of the information to criminally investigate or prosecute any alcohol or drug abuse patient.[facility] Reason for Visit * Reason Comments FMLA Paperwork Encounter Details Date Type Department Care Team (Late st Contact Info) Description 11/07/2024 Telephone Hematology/Oncology [address] [place] [address] [place] [address] Kvng Perez MD [address] [place] [address] [place] [address] [facility] Paperwork Social History Tobacco Use Types Packs/Day Years Used Date Smoking Tobacco: Former Cigarettes S tarted: 2017 Passive Smoke Exposure: Past Smokeless Tobacco: Never Alcohol Use Standard Drinks/Week Comments Not Currently 0 (1 standard drink = 0.6 oz pur e alcohol) Area Deprivation Index Answer Date Kenneth rded National Score (1-100), lower number is lower ri 93 10/27/2024 State Score (1-10), lower number is lower risk 9 10/27/2024 Data from: https://www.neighborhoodatlas.medicine.[facility].edu/. Last address used for calculation [address] 10/27/2024 Sex and Gender Information Value Date Recorded Sex Assigned at Not on file Legal Sex Male 8:04 AM EST Gender Identity Not on file Sexual Orientation Not on file documented as of this encounter Miscellaneous Notes * Telephone Encounter - Mamie Zepeda MA - 11/08/2024 11:09 AM EDT [facility] paperwork signed and original left at front office supervisor for Kim to fish bait picker on Wednesday. Original placed in scanning. Mamie Zepeda MA * Telephone Encounter - Naz Hooks MA - 11/07/2024 3:20 PM EDT [facility] paperwork completed for family member has been completed and placed in folder to be signed. Naz Hooks MA documented in this encounter Plan of Treatment Upcoming Encounters Date Type Department Care Team (Latest Contact Info) Description 11/15/2024 11:00 AM EDT Office Visit Pulmonary Medicine [address] [address] Alexandre Robertson MD [address] [place] [address] New Consultation 11/15/2024 12:10 PM EDT Procedure Cardiology [address] [address] PreOp Testing 11/17/2024 1:00 PM EDT Office Visit Radiation Oncology [address] [place] [address] [place] [address] Ezra Moreno MD [address] [place] [address] [place] [address] Consult dx Lung cancer 11/17/2024 2:00 PM EDT Visit (SP) Office Hematology/Oncology [address] [place] [address] [place] [address] Kvng Perez MD [address] [facility] 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] 11/20/2024 11:30 AM EDT - 11/20/2024 1:30 PM EDT Surgery Admitting [address] [address] Alexandre Robertson MD [address] [place] [address] BRONCHOSCOPY FLEXIBLE ADULT 11/30/2024 3:30 PM EDT [facility] Nutrition Therapy [address] [place] [address] Bee Pabon, RD [address] [place] [address] Follow up lung/ severe weight loss Scheduled Procedures Name Priority Associated Diagnoses Date/Ti me BRONCHOSCOPY FLEXIBLE ADULT Bronchiolar disease 11/20/2024 11:30 AM EDT documented as of this encounter Visit Diagnoses Not on filedocumented in this encounter Care Teams Surveillance Manager Relationship Specialty Start Date End Date Brandi Alvarado, QUILTING MACHINE OPERATOR.SIX SIGMA PROJECT MANAGER [address] [place], [place] [id number] PCP - General Nurse Practitioner 10/27/24 documented as of this encounter
--- OUTSIDE RECORDS SUMMARY | 2024-11-13 08:41 | XMS_ITS | Patient Health Record ---
Author Organization [facility] in [place] Address [address] [place] [address] Care Team Providers Care Business Analyst Project Manager Name Role Phone Brandi Fiore Primary Care Provider Unavail able José Luis Ragland Unavailable [phone] Chip Carbajal Unavailable [phone] Allergies Allergen (clinical drug ingredient) Drug/Non Drug Allergy documented on EMR Reaction Allergy Type Onset Date Status sulfamethoxazole / trimethoprim Bactrim fluid retention Drug Allergy Active codeine Codeine sweating Drug Allergy Active Results Component Value Reference Range Notes CT Chest w/o contrast Reviewed date:10/09/2024 09:52:28 AM Interpretation: Performing Lab: Notes/Report: XR chest 2V Reviewed date:07/27/2024 09:45:36 AM Interpretation: Performing Lab: Notes/Report: Source Facility: [place] [id number] XRay Report Signed Patient: FRANTZ ROA II MR#: [id number] : 1960 Acct:[id number] Age/Sex: 63 / M ADM Date: 06/22/24 Loc: RAD Attending Dr: JOSÉ LUIS RAGLAND Ordering Physician: JOSÉ LUIS RAGLAND Date of Service: 06/22/24 Procedure(s): XR chest 2V Accession Number(s): [id number] cc: JOSÉ LUIS RAGLAND [place] [id number] Patient Name: FRANTZ ROA MRN: [id number] date: 1960 Sex: M Assigned Patient Location: RAD Current Patient Location: RAD Accession/Order Number: [id number] Exam Date: 06/22/2024 11:05 Report Date: 06/22/2024 [...] Signed By: 06/22/24 1250 DD/ 1248 TD/TT: Tax Collection Coordinator: [place] [address] XRay Report Signed Patient: MICHAEL ROA II MR#: [id number] : 1960 Acct:[id number] Age/Sex: 63 / M ADM Date: 06/22/24 Loc: WILLIAN Attending Dr: RUDOLPH RAGLAND Ordering Physician: JOSÉ LUIS RAGLAND Date of Service: 06/22/24 Procedure(s): XR chest 2V Accession Number(s): [id number] cc: JOSÉ LUIS RAGLAND [place] [address] Patient Name: FRANTZ ROA MRN: [id number] date: 1960 Sex: M Assigned Patient Loc ation: RAD Current Patient Loca tion: RAD Accession/Order Numb er: [id number] Exam Date: 06/22/2024 11:05 Report Date: 06/22/2024 [...] pneumothorax. X R/XR chest 2V IMPRESSION: Chest radiograph is within normal limits. Electronically authenticated by: ROSANA LYNCH Date: 06/22/2024 12:48 Dictated By: Rosana Lynch M.D. Signed By: 06/22/24 1250 DD/ 1248 TD/TT: Tax Collection Coordinator: CT chest wo con Reviewed date:10/09/2024 06:58:44 AM Interpretation: Performing Lab: Notes/Report: Source Facility: [place] [address] CT Scan Report Signed Patient: FRANTZ ROA II MR#: [id number] : 1960 Acct:[id number] Age/Sex: 63 / M ADM Date: 10/06/24 Loc: CT Attending Dr: Chip Carbajal D.O. Ordering Physician: Chip Carbajal D.O. Date of Service: 10/06/24 Procedure(s): CT chest wo con Accession Number(s): [id number] cc: JOSÉ LUIS RAGLAND [place] [address] Patient Name: RFANTZ ROA MRN: [id number] date: 1960 Sex: M Assigned Patient Location: CT Current Patient Location: CT Accession/Order Number: [id number] Exam Date: 10/06/2024 10:28 Report Date: 10/06/2024 [...] Jr., D.O. 10/06/2024 10:33 AM Dictation Location: [place] [address] Electronically authenticated by: [id number] Y Date: 10/06/2024 10:33 Dictated By: Neftali Lewis M.D. Signed By: 10/06/24 1035 DD/ 1033 TD/TT: Tax Collection Coordinator: [place] [address] CT Scan Report Signed Patient: MICHAEL ROA II MR#: [id number] : 1960 Acct:[id number] Age/Sex: 63 / M ADM Date: 10/06/24 Loc: CT Attending Dr: Chip Carbajal D.O. Ordering Physician: Chip Carbajal D.O. Date of Service: 10/06/24 Procedure(s): CT mate[facility] wo con Accession Number(s): [id number] cc: JOSÉ LUIS RAGLAND [place] [address] Patient Name: FRANTZ ROA MRN: [id number] date: 1960 Sex: M Assigned Patient Loc ation: CT Current Patient Loca tion: CT Accession/Order Numb er: [id number] Exam Date: 10/06/2024 10:28 Report Date: 10/06/2024 10:33 At the request of: CHIP CARBAJAL DO Procedure: CT chest wo con CT CHEST WITHOUT IV CONTRAST: CLINICAL HISTORY: Ch ronic Cough COMPARISON: Chest 07/12/2024 TECHNIQUE: Spiral im [...] Jr., D.O. 10/06/2024 10:33 AM Dictation Location: [place] [address] Electronically authenticated by: [id number] Y Date: 10/06/2024 10:33 Dictated By: Neftali Lewis M.D. Signed By: 10/06/24 1035 DD/ 1033 TD/TT: Tax Collection Coordinator: ECG 12 lead Reviewed date:10/16/2024 09:53:23 AM Interpretation: Performing Lab: Notes/Report: Source Facility: [place] [address] Electrocardiograph Report Signed Patient: FRANTZ ROA II MR#: [id number] : 1960 Acct:[id number] Age/Sex: 63 / M ADM Date: 10/12/24 Loc: PST Attending Dr: Chip Carbjaal D.O. Ordering Physician: Chip Carbajal D.O. Date of Service: 10/12/24 Procedure(s): ECG 12 lead Accession Number(s): [id number] cc: [facility] Test Date: 2024-10-12 Pat Name: FRANTZ ROA Department: Room: - Gender: Male Transmission Mechanic: : 1960 Requested By: Chip Carbajal Order Number: [id number] Reading MD: AGATHA SALAZAR M.D. Measurements Intervals [place] Rate: 93 P: 32 MT: 168 QRS: 33 QRSD: 133 T: 5 [...] Signed By: 10/12/24 2329 DD/ 1257 TD/TT: Tax Collection Coordinator: [place] [address] Electrocardiograph Report Signed Patient: MICHAEL ROA II MR#: [id number] : 1960 Acct:[id number] Age/Sex: 63 / M ADM Date: 10/12/24 Loc: PST Attending Dr: Chip Carbajal D.O. Ordering Physician: Chip Carbajal D.O. Date of Service: 10/12/24 Procedure(s): ECG 12 lead Accession Number(s): [id number] cc: [facility] Test Date: 2024-10-12 Pat Name: FRANTZ DAVILA Department: 97 Room: - Gender: Male Transmission Mechanic: : 1960 Requ ested By: Chip Carbajal Order Number: [id number] Reading MD: AGATHA SALAZAR M.D. Measurements Intervals [place] Rate: 93 P: 32 MT: 168 QRS: 33 QRSD: 133 T: 5 [...] Signed By: 10/12/24 2329 DD/ 1257 TD/TT: Tax Collection Coordinator: PET/CT Skull Base to Mid-Thi gh Reviewed date:10/23/2024 12:37:26 PM Interpretation: Performing Lab: Notes/Report: Blood Culture 2 Reviewed date:11/09/2024 06:10:20 PM Interpretation: Performing Lab: Notes/Report: L AC [facility] , Blood Culture 2 See Below For Report NG5D NO GROWTH AT 5 DAYS.^NO GROWTH AT 5 DAYS. Blood Culture 2 Performing Lab: see note ML - [facility] LB Blood Culture 1 Reviewed date:11/09/2024 06:10:20 PM Interpretation: Performing Lab: Notes/Report: [facility] , Blood Culture 1 See Below For Report Blood Culture 1 NG5D NO GROWTH AT 5 DAYS.^NO GROWTH AT 5 DAYS. Performing Lab: see note - [facility] LB LACTATE or LACTIC ACID Reviewed date:11/04/2024 11:42:44 AM Interpretation: Performing Lab: Notes/Report: [facility] , Lactate/Lactic Acid 2.1 0.4-2.0 mmol/L RESULT S CALLED TO billy vásquez rn Performing Lab: see note - [facility] LB LACTATE or LACTIC ACID Reviewed date:11/04/2024 11:42:44 AM Interpretation: Performing Lab: Notes/Report: Comment From ER blood please [facility] , Lactate/Lactic Acid 4.2 0.4-2.0 mmol/L RESULT S CALLED TO Billy Vásquez RN Performing Lab: see note - [facility] LB XR chest 2V Reviewed date:11/06/2024 03:28:57 PM Interpretation: Performing Lab: Notes/Report: Source Facility: [place] [address] XRay Report Signed Patient: FRANTZ ROA II MR#: [id number] : 1960 Acct:[id number] Age/Sex: 64 / M ADM Date: 11/03/24 Loc: [place] 223-[address]: Ochoa Owens M.D. Ordering Physician: Mando Ward M.D. Date of Service: 11/06/24 Procedure(s): XR chest 2V Accession Number(s): [id number] cc: Mando Ward M.D.; BRANDI COLLINS [place] [id number] Patient Name: FRANTZ ROA MRN: [id number] date: 1960 Sex: M Assigned Patient Location: MS Current Patient Location: MS Accession/Order Number: [id number] Exam Date: 11/06/2024 12:21 Report Date: 11/06/2024 12:22 At the request of: MANDO WARD MD Procedure: XR chest 2V XR chest 2V 11/06/2024 6:12 AM SIGNS AND SYMPTOMS: follow up PNA PROTOCOL: Frontal and lateral radiographs of the chest COMPARISON: 11/03/2024 FINDINGS: The trachea is midline. The heart and mediastinal structures are within normal limits. Similar right hilar masslike structure is noted with airspace opacities along the right heart border. The bony thorax is intact. XR/XR chest 2V IMPRESSION: Similar right hilar masslike structure is noted with airspace opacities along the right heart border. Impression dictated by: Jose Antonio Lainez M.D. 11/06/2024 12:22 PM Dictation Location: [place] [address] Electronically authenticated by: [id number] Y Date: 11/06/2024 12:22 Dictated By: Jose Antonio Lainez M.D. Signed By: 11/06/245 DD/ 21 TD/TT: Tax Collection Coordinator: [place] [address] XRay Report Signed Patient: MICHAEL ROA II MR#: [id number] : 1960 Acct:[id number] Age/Sex: 64 / M ADM Date: 11/03/24 Loc: [place] 223-[address]: Ochoa thakkar M.D. Ordering Physician: Mando Ward M.D. Date of Service: 11/06/24 Procedure(s): XR chest 2V Accession Number(s): [id number] cc: Mando Ward M.D. ; BRANDI COLLINS [place] [id number] Patient Name: FRANTZ ROA MRN: [id number] date: 1960 Sex: M Assigned Patient Loc ation: MS Current Patient Loca tion: MS Accession/Order Numb er: [id number] Exam Date: 11/06/2024 12:21 Report Date: 11/06/2024 12:22 At the request of: MANDO WARD MD Procedure: XR chest 2V XR chest 2V 6:12 AM SIGNS AND SYMPTOMS: follow up PNA PROTOCOL: Frontal an d lateral radiographs of the chest COMPARISON: 11/03/2024 FINDINGS: The trachea is midli ne. The heart and mediastinal structures are within normal limits. Simil ar right hilar masslike structure is noted with airspace opacities along the right heart border. The bony thorax is intact. X R/XR chest 2V IMPRESSION: Similar right hilar masslike structure is noted with airspace opacities along the right heart border. Impression dictated by: Jose Antonio Lainez M.D. 11/06/2024 12:22 PM Dictation Location: [facility] Electronically authenticated by: [id number] Y Date: 11/06/2024 12:22 Dictated By: Jose Antonio Lainez M.D. Signed By: 11/06/24 1225 DD/ 1222 TD/TT: Tax Collection Coordinator: LACTATE or LACTIC ACID Reviewed date:11/06/2024 03:28:57 PM Interpretation: Performing Lab: Notes/Report: [facility] , Lactate/Lactic Acid 2.4 0.4-2.0 mmol/L RESULT S CALLED TO BILLY VÁSQUEZ RN Performing Lab: see note ML - 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 Diagnosis 1 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) Referral Organization [facility] [place] Referring Provider First Name Chip Referring Provider Last Name Braden Referring Provider Speciality Pulmonolog y Referred Provider Gaetano Nathan Referred Provider Specialty Hematology/O ncology General Notes Stanford Chan 10/23 02:43:00 PM >Images pushed to [facility] via PACS.Rocio Riley 10/23/2024 04:29:01 PM >Referral faxed to [facility] Oncology.Rocio Riley 10/24/2024 01:11:14 PM >I called and spoke with Benita at [facility] Oncology to find out if the referral was received and if the patient has been scheduled? [facility] states the patient has been contacted and is scheduled for 10/27/2024 at 0900.Rocio Riley 10/30/2024 08:53:47 AM >[facility] CONSULT RECEIVED VIA [...] e a day for 30 day(s) Active predniSONE 10 MG Oral for 21 Days Active Tylenol 325 MG 1 tablet as needed Orally every 6 hrs Active Vitamin C 1000 MG 1 tablet Orally Once a day Active Benzonatate 200 MG 1 capsule as needed for cough Orally Three times a day for 30 days 10/23/2024 Active Cyclobenzaprine HCl 10 MG TAKE 1 TABLET BY MOUTH EVERY DAY AT BEDTIME NEEDED Orally for 90 days Active Zinc 50 MG 1 capsule Orally Onc e a day for 30 day(s) Active Fish Oil 1000 MG 1 capsule Orally Three times a day Active Albuterol Sulfate HFA 108 (90 Base) MCG/ACT 1 puff as needed Inhalation every 4 hrs 09/13/2024 Not-Taking levoFLOXacin 750 MG TAKE 1 TABLET BY MOUTH EVERY DAY FOR 14 DAYS Oral for 14 Days Active Breztri Aerosphere 160-9-4.8 MCG/ACT 2 puffs Inhalation Twice a day 09/25/2024 Not-Taking Immunizations Vaccine Route Administration Date Status Comme nts Flu, Flublok (56263) 18 yrs and older, single-dose syringe Unknown 03/31/2024 Administered Flu, Flublok (00482) 18yr+, single-dose (7394-8457) Unknown 03/16/2022 Administered Flu, Flublok (15360) 18yr+, single-dose (4421-1954) Unknown 04/21/2023 Administered Flu, Flucelvax (85762) 4 yrs and older, multi-dose vial (3498-2730) IM Intramuscular 04/02/2020 Administered Flu, Fluzone (82505) 6-35mo, multi-dose vial (7090-4982) Unknown 03/14/2017 Administered Flu, unspecified Unknown 04/07/2021 [...] in 2017 , retired. Quit smoking in 2016 , retired. Quit smoking in 2016 , retired. Quit smoking in 2016 , retired. Quit smoking in 2016 , retired. Quit smoking in 2016 , retired. Quit smoking in 2016 , retired. Quit smoking in 2016 , retired. Quit smoking in 2016 , retired. Quit smoking in 2016 , retired. Quit smoking in 2016 , retired. Quit smoking in 2016 , retired. Quit smoking in 2016 , retired. Quit smoking in 2016 , retired. Quit smoking in 2016 , retired. Quit smoking in 2016 , retired. Quit smoking in 2016 Problems Problem Type SNOMED Code ICD Code Onset Dates Problem Status W/U Status Risk Notes Problem 365132857 Sleep disorder, unspecified (G47.9) Active confirmed Problem 64514596 Other chronic pain (G89.29) Active confirmed Problem 92679795 Essential hypertension (I10) Active confirmed Problem 249797919 BMI 33.0-33.9,adult (Z68.33) Active confirmed Problem Ex-tobacco user (finding) (582513829) History of tobacco abuse (Z87.891) Active confirmed Problem History of influenza (737626998) History of influenza (Z87.09) Active confirmed Problem 464107505 Acute gout of left foot, unspecified cause (M10.9) Active confirmed Problem 921830667 Chronic gout without tophus, unspecified cause, unspecified site (M1A.9XX0) Active confirmed Problem 49218430 Kidney stone on right side (N20.0) Active confirmed Problem Primary malignant neoplasm of lung (27504899) 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) Active confirmed Problem History of COVID-19 (0402517468214 88402) History of COVID-19 (Z86.16) Active confirmed Vital Signs Heart Rate 92 /min 11/07/2024 Temperature 96.8 degrees Fahrenheit 11/07/2024 Respiratory Rate 18 /min 11/07/2024 Oximetry 95 % 11/07/2024 Blood pressure diastolic 77 mm Hg 11/07/2024 Height 68 in 11/07/2024 Blood pressure systolic 130 mm Hg 11/07/2024 Weight 210.8 lbs 11/07/2024 BMI 32.05 kg/m2 11/07/2024 Procedures Procedure Date Ordered Date Performed Result Body Sit e Bronchoscopy (Bronchoscopy/L john BX, each) 10/09/2024 10/16/2024 N/A Encounters Encounter Location Date Provider Diagnosis [facility] [address] [place] [address] 02/17/2024 José Luis Ragland Other chronic pain G89.29 ; Essential hypertension I10 and Sleep disorder, unspecified G47.9 [facility] [address] [place] [address] 07/25/2024 José Luis Ragland Chronic cough R05.3 ; Essential hypertension I10 and Sleep disorder, unspecified G47.9 [facility] [address] [place] [address] 09/25/2024 Chipasad Carbajal Chronic cough R05.3 ; History of tobacco abuse Z87.891 ; History of COVID-19 Z86.16 and History of influenza Z87.09 [facility] [address] [place] [address] 10/09/2024 Chip Samsa Chronic cough R05.3 ; Right lower lobe lung mass R91.8 ; History of tobacco abuse Z87.891 ; History of COVID-19 Z86.16 and History of influenza Z87.09 [facility] [address] [place] [address] 10/23/2024 Chipasad Carbajal Squamous cell carcinoma of bronchus of right lung C34.91 ; Pneumonitis due to inhalation of food and vomit J69.0 and History of tobacco abuse Z87.891 [facility] [address] [place] [address] 11/07/2024 [facility] Squamous cell carcinoma of bronchus of right lung C34.91 and History of tobacco abuse Z87.891 [facility] [address] [place] [address] 10/16/2024 [facility] [address] [place] [address] 06/21/2024 José Luis Ragland Screening for colon cancer Z12.11 ; Encounter for general adult medical examination without abnormal findings Z00.00 ; Chronic cough R05.3 ; Essential hypertension I10 and Sleep disorder, unspecified G47.9 [facility] [address] [place] [address] 01/18/2024 José Luis Ragland Other chronic pain G89.29 [facility] [address] [place] [address] 09/13/2024 José Luis Jeffreynes [facility] [address] [place] [address] 09/21/2024 [facility] [address] [place] [address] 10/09/2024 [facility] [address] [place] [address] 10/11/2024 [facility] [address] [place] [address] 10/17/2024 [facility] [address] [place] [address] 10/23/2024 [facility] Assessments Encounter Date Diagnosis (ICD Code) Assessment Notes Treatment Notes Treatment Clinical Notes Section Notes 06/21/2024 Screening for colon cancer (ICD-10 - Z12.11) 06/21/2024 Encounter for general adult medical examination without abnormal findings (ICD-10 - Z00.00) 02/17/2024 Other chronic pain (ICD-10 - G89.29) Stable, continue meloxicam daily and muscle relaxer as needed 02/17/2024 Essential hypertension (ICD-10 - I10) Continue current meds -will send refill of the metoprolol ER 50mg daily to [facility] 07/25/2024 Chronic cough (ICD-10 - R05.3) CXR [...] (or sooner) after bronchoscopy to review results. 11/07/2024 Squamous cell carcinoma of bronchus of [...] maintenance durvalumab. He has been referred to [facility] interventional pulmonology in an attempt to [...] - Z87.891) 2ppd x 37 years, quit 12/201601/18/2024 Other chronic pain (ICD-10 - G89.29) 10/23/2024 [...] will see if an internal referral to [facility] interventional pulmonology can be made. If not, I can place one. He continues to lose weight. He was 201.8# on 10/09/2024 - today (10/23/2024), he is 193.6#. There is significant mediastinal lymphadenopathy which appears to be compressing the mid-esophagus, leading to esophgaela dysphagia, limiting further his caloric intake. Discussed healthy diet, consider Ensure or Boost. He will benefit from a surgical assist/dietic satish with oncological treatment. Will have him [...] - likely will start an inhaler. COPD? 06/21/2024 Essential hypertension (ICD-10 - I10) COntinue the metoprolol 09/25/2024 History of influenza (ICD-10 - Z87.09) 10/09/2024 History of COVID-19 (ICD-10 - Z86.16) 10/09/2024 History of influenza (ICD-10 - Z87.09) 06/21/2024 Sleep disorder, unspecified (ICD-10 - G47.9) Continue melatonin, try calming music before bed 10/23/2024 Other 11/07/2024 Other Plan Of Treatment Pending Test Test Name Order Date XR Thoracic Spine (3 views) dorsal * XR Chest PA and Lateral (Routine CXR) * 06/21/2024 Cologuard 06/21/2024 Insurance Providers Payer Name Payer Address Payer Phone Subscriber Number Group Number Insured Name Patient Relationship to Insured Coverage Start Date Coverage End Date [employer] PPO PLUS LOCAL PLAN [address] [place] [phone] [id number] Frantz Roa Self - patient is the insured 3 Medical (General) History Medical History History ICD Code Gout M10.9 BPH (benign prostatic hyperplasia) N40.0 Nephrolithiasis N20.0 HTN (hypertension) I10 OA (osteoarthritis) M19.90 History of COVID-19 Z86.16 History of influenza Z87.09 History of tobacco abuse Z87.891 Squamous cell carcinoma of bronchus of r ight lung C34.91 Surgical History Surgery Date(Month/Year) Cystoscope - Dr. Martinez 2015 T&A Left carpal tunnel release - Dr. Arsalan barahona 12/23/17 Right carpal tunnel release - Dr. Hernandez ic 08/25/18 TURP - Dr. Vásquez 05/17/19 Bronchoscopy 10/17/2024 Hospitalization History Reason Date(Month/Year) Syncope-[facility] 11/03/2024 Lung mass/Hypoxia-[facility] 10/06/2024
--- OUTSIDE RECORDS SUMMARY | 2024-11-13 08:41 | XMS_ITS | Encounter Summary ---
Author Organization [facility] [employer] Address [id number] [address] [place] [address] Care Team Providers Care Online Merchandising Specialist Name Role Phone Brandi Alvarado Janeth MCLEAN-FUEL OIL CLERK Primary Care Provider [phone] Encounter Details Date Type Department Care Team (Late st Contact Info) Description 11/08/2024 Orders Only [facility] [address] [place] [phone] External, Scanning Provider Social History Tobacco Use Types Packs/Day Years Used Date Smoking Tobacco: Former Cigarettes Q uit: 01/04/2017 Smokeless Tobacco: Never Alcohol Use Standard Drinks/Week Comments Yes 0 (1 standard drink = 0.6 oz pur e alcohol) [facility] Utilities Answer Date Recorded In the [...] on file Legal Sex Male 11:50 AM GAIL Gender Identity Not on file Sexual Orientation Not on file documented as of this encounter Functional Status * Audit-C Score [...] Monthly or less 11/09/2024 11:28 AM Ray Bxater RN Q2: How many drinks containing alcohol do you have on a typical day when you are drinking? 1 or 2 11/09/2024 11:28 AM EDT Kan Miller, PRITI Q3: How often do you have six or more drinks on one occasion? Never 11/09/2024 11:28 AM EDT Ray Miller RN * Question Answer Date of Assessment Author Functional Status Independent 11/09/2024 11:17 AM EDT Mary Ellen Miller, RN documented as of this encounter Plan of Treatment Upcoming Encounters Date Type Department Care Team (Late st Contact Info) Description 11/22/2024 1:00 PM EDT Office Visit [facility] [address] [place] [address] Bishop Milan APRN-ABBEY [address] [place], [place] [address] 12/07/2024 9:00 AM EDT Clinical Support [facility] [address] [place] [phone] documented as of this encounter Goals Goal Patient Goal Type Associated Problems Recent Progress Patient-Stated? Author Discharge home General Yes Faye Chow, PRITI Note: Evaluation of progress towards goal: Pt plans to return home self care with support. documented as of this encounter Procedures Procedure Name Priority Date/Time Associated Diagnosis Comments MULTIPLE LABS Routine 11/06/2024 3:45 PM EDT XR CHEST 2 VWS Routine 11/06/2024 3:43 PM EDT XR CHEST 1 VW Routine 11/03/2024 3:41 PM EDT XR CHEST 1 VW Routine 11/03/2024 3:37 PM EDT ECG 12-LEAD Routine 11/03/2024 3:36 PM EDT ECG 12-LEAD Routine 2024 3:35 PM EDT documented in this encounter Results * Multiple labs (11/06/2024 3:45 PM EDT) us Scanning Provider External [facility] Final Result MANUALLY TRANSCRIBED RESULTS * X-ray chest 2 views (11/06/2024 3:43 PM EDT) Anatomical Region Laterality Modality Body, Chest N/A Computed Radiogr aphy us Scanning Provider External IMG DIAGNOSTIC IMAGIN G ORDERABLES Final Result * X-ray chest 1 view (11/03/2024 3:41 PM EDT) Anatomical Region Laterality Modality Body, Chest N/A Computed Radiogr aphy us Scanning Provider External IMG DIAGNOSTIC IMAGIN G ORDERABLES Final Result * X-ray chest 1 view (11/03/2024 3:37 PM EDT) Anatomical Region Laterality Modality Body, Chest N/A Computed Radiogr aphy us Scanning Provider External IMG DIAGNOSTIC IMAGIN G ORDERABLES Final Result * ECG 12 lead (11/03/2024 3:36 PM EDT) us Scanning Provider External ECG ORDERABLES Final Result Performing Organization Address [facility] Co de Phone Number MANUALLY TRANSCRIBED RESULTS * ECG 12 lead (2024 3:35 PM EDT) us Scanning Provider External ECG ORDERABLES Final Result Performing Organization Address [facility] Co de Phone Number MANUALLY TRANSCRIBED RESULTS documented in this encounter Visit Diagnoses Not on filedocumented in this encounter Additional Health Concerns Assessment Noted Time PHQ-9 Depression Total Score: 0 12/18/19 17 3:00 PM EDT documented as of this encounter Care Teams Online Merchandising Specialist Relationship Specialty Start Date End Date Brandi Alvarado, WARP PREPARER-FUEL OIL CLERK [address] [place] [address] PCP - General Nurse Practitioner 11/08/24 documented as of this encounter
--- OUTSIDE RECORDS SUMMARY | 2024-11-13 08:41 | XMS_ITS | Encounter Summary ---
Author Organization [employer] Address [id number] [address] [place] [address] Care Team Providers Care Winder Operator Name Role Phone Jenny, BrandiJasmin MCLEAN-CLOTH WEAVER Primary Care Provider [phone] Encounter Details Date Type Department Care Team (Late st Contact Info) Description 11/10/2024 Telephone [facility] [address] [place] [phone] Milla Metcalf Social History Tobacco Use Types Packs/Day Years Used Date Smoking Tobacco: Former Cigarettes Q uit: 01/04/2017 Smokeless Tobacco: Never Alcohol Use Standard Drinks/Week Comments Not Currently 0 (1 standard drink = 0.6 oz pur e alcohol) [facility] Utilities Answer Date Recorded In the past 12 months has th e [place], gas, oil, or water company threatened to [...] encounter Miscellaneous Notes * Telephone Encounter - Milla Metcalf - 11/10/2024 7:45 AM EDT ----- Message from Aleida Almodovar PA-C sent at 11/09/2024 5:20 PM EDT ----- Please have the patient follow up with general cardiology in 1-2 weeks * Telephone Encounter - Angela Sheppard CMA - 11/10/2024 7:45 AM EDT Carla PERLA recruiting scheduler will call to schedule at [facility] documented in this encounter Plan of Treatment Upcoming Encounters Date Type Department Care Team (Late st Contact Info) Description 11/22/2024 1:00 PM EDT Office Visit [facility] [address] [place] [phone] Bishop Milan APRN-ABBEY [address] [place], [place] [id number] 12/07/2024 9:00 AM EDT Clinical Support [facility] [address] [place] [phone] documented as of this encounter Goals Goal Patient Goal Type Associated Problems Recent Progress Patient-Stated? Author Discharge home General Yes Faye Chow, RN Note: Evaluation of progress towards goal: Pt plans to return home self care with support. documented as of this encounter Visit Diagnoses Not on filedocumented in this encounter Additional Health Concerns Assessment Noted Time PHQ-9 Depression Total Score: 0 11/10/19 11:28 AM EDT documented as of this encounter Care Teams Winder Operator Relationship Specialty Start Date End Date Brandi Alvarado, DIRECTOR OF CRITICAL CARE-CLOTH WEAVER [address] [place] [address] PCP - General Nurse Practitioner 11/08/24 documented as of this encounter
--- OUTSIDE RECORDS SUMMARY | 2024-11-13 08:42 | XMS_ITS | Clinical Summary ---
Author Organization [facility] Address [address] [place] [address] Care Team Providers Care Mobile Lounge Driver Or Operator Name Role Phone Unavailable Primary Care Provider Unavailabl e Encounters Date Type Department Care Team Description 10/09/2024 Results Follow-Up [facility] [address] [place] [address] Marvel Shields PA 10/07/2024 Clinisync Result Encounter [...] Re sult Performing Organization Address [facility] de Phone Number [facility] * BLOOD CULTURE 2 (10/06/2024 6:20 [...] [facility] from Last 3 Months Insurance [facility]
--- OUTSIDE RECORDS SUMMARY | 2024-11-13 08:42 | XMS_ITS | Encounter Summary ---
Author Organization [facility] Address [address] [place] [address] Care Team Providers Care Dye Penetrant Testing Technician Name Role Phone Unavailable Primary Care Provider Unavailabl e Encounter Details Date Type Department Care Team (Late st Contact Info) Description 10/09/2024 Results Follow-Up [facility] [address] [facility] [address] [place] [phone] Marvel Shields PA [address] [facility] [address] [place] [address] Social History Tobacco Use Types Packs/Day Years [...]
--- OUTSIDE RECORDS SUMMARY | 2024-11-13 08:42 | XMS_ITS ---
Author Organization [employer] Address [id number] [address] [place] [address] Care Team Providers Care Workday Director Name Role Phone Brandi Alvarado APRN-JEWEL CUPPING MACHINE OPERATOR Primary Care Provider [phone] Active Problems Problem Noted Date Diagnosed Date AV block 11/09/2024 BPH with urinary obstruction 11/09/2024 Arthritis 11/09/2024 Gout 11/09/2024 Squamous cell lung cancer 11/09/2024 Current Treatment and Therapy Plans No current plan information found. Past Treatment and Therapy Plans No past plan information found. Lifetime Dose Tracking * Chemical Lifetime Dose Automatic Entry Manual Entr y Fluoroscopy 28 mGy 0 mGy 28 mGy
--- OUTSIDE RECORDS SUMMARY | 2024-11-13 08:42 | XMS_ITS | Encounter Summary ---
Author Organization [employer] [facility] tem Address [id number] [address] [place] [address] Care Team Providers Care Document Management Consultant Name Role Phone Brandi Alvarado Janeth MCLEAN-TELEGRAPH REPEATER INSTALLER Primary Care Provider [phone] Encounter Details Date Type Department Care Team (Latest Contact Info) Description 11/08/2024 Travel Social History Tobacco Use Types Packs/Day Years Used Date Smoking Tobacco: Former Cigarettes Q uit: 01/04/2017 Smokeless Tobacco: Never Alcohol Use Standard Drinks/Week Comments Yes 0 (1 standard drink = 0.6 oz pur e alcohol) [facility] Utilities Answer Date Recorded In the past 12 months has [employer] gas, oil, or water company threatened to [...] Office Visit [facility] [address] [place] [phone] Bishop Milan, MANAGER IMMUNOLOGY-TELEGRAPH REPEATER INSTALLER [address] [place] [address] 12/07/2024 9:00 AM EDT Clinical Support [facility] [address] [place] [phone] documented as of this encounter Visit Diagnoses Not on filedocumented in this encounter Additional Health Concerns Assessment Noted Time PHQ-9 Depression Total Score: 0 12/18/19 17 3:00 PM EDT documented as of this encounter Care Teams Document Management Consultant Relationship Specialty Start Date End Date Brandi Alvarado, MANAGER IMMUNOLOGY-TELEGRAPH REPEATER INSTALLER [address] [place] [address] PCP - General Nurse Practitioner 11/08/24 documented as of this encounter
--- OUTSIDE RECORDS SUMMARY | 2024-11-13 08:42 | XMS_ITS | Encounter Summary ---
[id number] [address] [place] [address] Care Team Providers Care Machine Scallop Cutter Name Role Phone Alina Ragland MD Primary Care Provider Encounter Details Date Type Department Care Team (Late st Contact Info) Description 11/07/2024 [facility]phone [facility] [address] [place] [phone] Victoria Collado CMA Social History Tobacco Use Types Packs/Day Years [...] got money to buy more. Never True 11/08/2024 Within the past 12 months th e food we bought just didn't last and we didn't have money to get more. Never True 11/08/2024 Purpose - Life Answer Date Recorded Purpose and direction in life Unknown Sex and Gender Information Value Date Recorded Sex Assigned at Not on file Legal Sex Male 11:50 AM EDT Gender Identity Not on file Sexual Orientation Not on file documented as of this encounter Miscellaneous Notes * Telephone Encounter - Victoria Collado CMA - 11/07/2024 10:51 AM EDT Called patient to remind them to bring their most current copy of their medication list with them to their appt. Patient verbalizes understanding. documented in this encounter Plan of Treatment Upcoming Encounters Date Type Department Care Team (Late st Contact Info) Description 11/22/2024 1:00 PM EDT Office Visit [facility] [address] [place] [address] Bishop Milan APRN-FASHION ADVISER [address] [place], [place] [phone] 12/07/2024 9:00 AM EDT Clinical Support [facility] [place] [address] documented as of this encounter Visit Diagnoses Not on filedocumented in this encounter Additional Health Concerns Assessment Noted Time PHQ-9 Depression Total Score: 0 12/18/19 17 3:00 PM EDT documented as of this encounter Care Teams Machine Scallop Cutter Relationship Specialty Start Date End Date Alina Ragland MD [address] [place] [phone] PCP - General Family Medicine 09/30/20 11/07/24 documented as of this encounter
--- OUTSIDE RECORDS SUMMARY | 2024-11-13 08:43 | XMS_ITS | Encounter Summary ---
Author Organization [facility] Address [address] [place] [address] Care Team Providers Care Road Production General Manager Name Role Phone Jenny Brandi Fowler APRN.[facility] Primary Care Provider [phone] Source Comments In the event this information is protected by the Federal Confidentiality of Alcohol and Drug AbusePatient Records regulations: The Federal rules restrict any use of the information to criminally investigate or prosecute any alcohol or drug abuse patient.[facility] Reason for Visit * Reason Comments Patient Update Appointment Encounter Details Date Type Department Care Team (Late st Contact Info) Description 11/01/2024 Telephone Hematology/Oncology [address] [place] [address] [place] [address] Brittany Marie RN Patient Update; Appointment [...] is lower risk 9 10/27/2024 Data from: https://www.neighborhoodatlas.medicine.[facility].edu/. Last address used for calculation [address] [...] EDT Pt reports pt is scheduled at [facility] for a second bronchoscopy 11/20/24 to clear [...] Office Visit Pulmonary Medicine [address] [place] [address] Alexandre Robertson MD [address] [place] [address] New Consultation 11/15/2024 12:10 PM EDT Procedure Cardiology [address] [address] PreOp Testing 11/17/2024 1:00 PM EDT Office Visit Radiation Oncology [address] [place] [place] [address] Ezra Moreno MD [address] [place] [address] [place] [address] Consult dx Lung cancer 11/17/2024 2:00 PM EDT Visit (SP) Office Hematology/Oncology [address] [place] [address] [place] [address] Kvng Perez MD [address] [place] [address] 2 week follow up 11/20/2024 11:30 AM EDT Hospital Encounter Admitting [address] [address] Alexandre Robertson MD [address] [place] [address] 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] 11/20/2024 11:30 AM EDT - 11/20/2024 1:30 PM EDT Surgery Admitting [address] [address] Alexandre Robertson MD [address] [place] [address] BRONCHOSCOPY FLEXIBLE ADULT 11/30/2024 3:30 PM EDT [facility] Nutrition Therapy [address] [place] [address] Bee Pabon, RD [address] [place] [address] Follow up lung/ severe weight loss Scheduled Procedures Name Priority Associated Diagnoses Date/Ti me BRONCHOSCOPY FLEXIBLE ADULT Bronchiolar disease 11/20/2024 11:30 AM EDT documented as of this encounter Visit Diagnoses Not on filedocumented in this encounter Care Teams Road Production General Manager Relationship Specialty Start Date End Date Brandi Alvarado, CHEMISTRY DEPARTMENT CHAIR.OUTBOARD MOTORBOAT OPERATOR [address] [place] [address] PCP - General Nurse Practitioner 10/27/24 documented as of this encounter
--- OUTSIDE RECORDS SUMMARY | 2024-11-13 08:43 | XMS_ITS | Clinical Summary ---
Author Organization [employer] tem Address [id number] [address] [place] [address] Care Team Providers Care Dental Equipment Mechanic Name Role Phone Brandi Alvarado APRN-CUPOLA MELTER Primary Care Provider [phone] Allergies Active Allergy Reactions Criticality Noted Date Comments Sulfamethoxazole-Trimethoprim 2016 Codeine diaphoresis 11/08/2024 Medications meclizine (ANTIVERT) 25 mg tablet Chew 1 tablet (25 mg total) and swallow 3 (three) times a day as needed for dizziness. Active benzonatate (TESSALON PERLES) 200 mg capsule Take 1 capsule (200 mg total) by mouth 3 (three) times a day as needed for cough. Active levoFLOXacin (LEVAQUIN) 750 mg tablet Take 1 tablet (750 mg total) by mouth in the morning. Active predniSONE (DELTASONE) 10 mg tablet Take 1 tablet (10 mg total) by mouth in the morning. Tapered dose. Active metoprolol succinate XL (TOPROL XL) 25 mg 24 hr tablet Take 1 tablet (25 mg total) by mouth in the morning. Active acetaminophen (TYLENOL EXTRA STRENGTH) 500 mg tablet Take 1 tablet (500 mg total) by mouth every 6 (six) hours as needed for pain. Active multivit-min/fol ic/vit K/lycop (MEN'S 50 PLUS MULTIVITAMIN ORAL) Take by mouth in the morning. Active cetirizine (ZyrTEC) 10 mg tablet Take 1 tablet (10 mg total) by mouth in the morning. Active varenicline (CHANTIX CONTINUING MONTH BOX) 1 mg tablet Take 1 tablet (1 mg total) by mouth 2 (two) times a day. Take with full glass of water. 56 tablet 3 03/31/20 17 025 Discontinued PEPSIN/GA/OXBIL E/PANCREAT/BET (WRGQMY-MLD-ZZ ZZVX-TPD-ZVL-PAP ORAL) Take by mouth. 025 Discontinued ibuprofen (ADVIL,MOTRIN) 200 mg tablet Take 200 mg by mouth every 6 (six) hours as needed for pain. 025 Discontinued tamsulosin (FLOMAX) 0.4 mg capsule,extended release 24hr Take 1 capsule (0.4 mg total) by mouth once daily for 90 days. 90 capsule 06/23/19 18 025 Discontinued cyclobenzaprine (FLEXERIL) 10 mg tablet Take 1 tablet (10 mg total) by mouth once daily at bedtime. 025 Discontinued(St op Taking at Discharge) meloxicam (MOBIC) 7.5 mg tablet Take 1 tablet (7.5 mg total) by mouth in the morning. 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 Arthritis 11/09/2024 Gout 11/09/2024 Squamous cell lung cancer 11/09/2024 Encounters Date Type Department Care Team Description 11/10/2024 Telephone [facility] [address] [place] [phone] Milla Metcalf 11/09/2024 1:30 PM EDT - 11/09/2024 3:00 PM EDT Surgery [facility] [address] [place] [phone] Robert Veloz MD EP Invasive DC PPM 11/09/2024 12:47 AM EDT - 11/09/2024 6:16 PM EDT Hospital Encounter [facility] - GEN 2 Acute [address] [place] [phone] Colby Johnson MD Discharge Disposition: Home 11/08/2024 4:07 PM EDT - 11/08/2024 11:52 PM EDT Emergency [facility] - Emergency [address] [place] [phone] Sean Hayes MD Symptomatic bradycardia (Primary Dx) Discharge Disposition: Institution Not Defined Elsewhere 11/08/2024 2:30 PM EDT Office Visit [facility] [address] [place] [phone] Maritza Best MD Syncope, unspecified syncope type (Primary Dx) 11/08/2024 Orders Only [facility] [address] [place] [address] External, Scanning Provider 11/08/2024 Travel 11/07/2024 [facility] [address] [place] [address] Victoria Collado CMA from Last 3 Months Immunizations Immunization Administration Dates Next Due Influenza Tri-valent Im, Adult 03/31/2024 Influenza, Im Trivalent Preservative 04/07/2021 Influenza, Injectable, MDCK, Quadrivalent 2019 Influenza, Recombinant, Quad rivalent, Injectable, Preserv 04/21/2023,03/16/2022 Influenza, Unspecified 03/14/2017 Family History Medical History Relation Name Comments Heart disease Father Arthritis Mother Relation Name Status Comments Father Mother Social History Tobacco Use Types Packs/Day Years Used Date Smoking Tobacco: Former Cigarettes Q uit: 01/04/2017 Smokeless Tobacco: Never Tobacco Cessation:Counseling Given: Not Answered Alcohol Use Standard Drinks/Week Comments Not Currently 0 (1 standard drink = 0.6 oz pur e alcohol) [facility] Utilities Answer Date Recorded In the past 12 months has [employer], gas, oil, or water [employer] threatened to shut off services in your [...] Mass Index 31.78 11/09/2024 7:30 AM EDT Plan of Treatment Upcoming Encounters Date Type Department Care Team (Late st Contact Info) Description 11/22/2024 1:00 PM EDT Office Visit [facility] [address] [place] [phone] Bishop Milan, WHEEL BRAIDER-CUPOLA MELTER [address] [place], [place] [phone] 12/07/2024 9:00 AM EDT Clinical Support [facility] [address] [place] [place] [phone] Health Maintenance Due Date Last Done Comments Adult BMI Follow Up Plan 11/03/1979 DTaP,Tdap and Td Vaccines (1 - Tdap) 1980 Zoster (Shingles) Vaccine (1 of 2) 1980 COVID-19 Vaccine (4 - Mixed Product risk season) 2024 03/31/2024, 09/25/2020, 08/28/2020 Influenza Vaccine 02/12/2025 03/31/2024, , 03/16/2022, Additional history exists Adult BMI Screening 11/09/2025 11/09/2024 Depression Screening 11/09/2025 11/09/2024 Tobacco Screening 11/09/2025 11/09/2024 Goals Goal Patient Goal Type Associated Problems Recent Progress Patient-Stated? Author Discharge home General Yes Faye Chow, RN Note: Evaluation of progress towards goal: Pt plans to return home self care with support. Medical Devices Implanted Type Area Furniture Shampooer Device Identifier Shelf Expiration Date Model / Serial / Lot Lead Pcng 52cm Atr Vntrc Ingevity+ Xtd Rtrct Fx Is-1 Cnct - [id number] - [id number] Implanted:Qt y: 1 on 11/09/2024 by Robert Veloz MD at [facility] Implant Lead Left: Chest [employer]/CRM [id number] 05/24/2026 [id number] / [id number] / Lead Pcng 59cm Atr Vntrc Ingevity+ Xtd Rtrct Fx Is-1 Cnct - [id number] - [id number] Implanted:Qt y: 1 on 11/09/2024 by Robert Veloz MD at [facility] Implant Lead Left: Chest [employer]/CRM [id number] 07/27/2026 [id number] / [id number] / Pacemaker .75cm Acld Mri El 2 Chmbr Is-1 Cnct Avinash Mntr 4.45 - [id number] - [id number] Implanted:Qt y: 1 on 11/09/2024 by Robert Veloz MD at [facility] Pacemaker Left: Chest [employer]/CRM [id number] 08/16/2026 [id number] / [id number] / Procedures Procedure Name Priority Date/Time Associated Diagnosis Comments XR CHEST 2 VWS Routine 11/09/2024 3:40 PM EDT EP INVASIVE Routine 11/09/2024 2:10 PM EDT ECHO COMPLETE W CONTRAST Routine 11/09/2024 1:27 PM EDT LACTATE W/ REFLEX STAT 11/09/2024 2:4 1 AM EDT PROCALCITONIN STAT Add-on 11/09/2024 2:41 AM EDT COMPREHENSIVE METABOLIC PANEL STAT 11/09/2024 2:41 AM EDT CBC WITH AUTO DIFFERENTIAL STAT 11/09/2024 2:41 AM EDT TROP I, HIGH SENSITIVITY 1 HOUR STAT 11/08/2024 5:32 PM EDT XR CHEST 1 VW STAT 11/08/2024 4:59 PM EDT TROPONIN I, HIGH SENSITIVITY 0 HOUR STAT 11/08/2024 4:24 PM EDT THYROID PROFILE INCLUDES TSH FT4 STAT 11/08/2024 4:24 PM EDT TROPONIN I, HIGH SENSITIVITY 0 HOUR STAT 11/08/2024 4:24 PM EDT MAGNESIUM STAT 11/08/2024 4:24 PM EDT D-DIMER STAT 11/08/2024 4:24 PM EDT COMPREHENSIVE METABOLIC PANEL STAT 11/08/2024 4:24 PM EDT B-TYPE NATRIURETIC PEPTIDE STAT 11/08/2024 4:24 PM EDT APTT STAT 11/08/2024 4:24 PM EDT PROTIME & INR STAT 11/08/2024 4:24 PM EDT CBC WITH AUTO DIFFERENTIAL STAT 11/08/2024 4:24 PM EDT ECG 12-LEAD STAT 11/08/2024 4:18 PM EDT POCT EKG Routine 11/08/2024 Syncope, unspecified syncope type MULTIPLE LABS Routine 11/06/2024 3:45 PM EDT XR CHEST 2 VWS Routine 11/06/2024 3:43 PM EDT XR CHEST 1 VW Routine 11/03/2024 3:41 PM EDT XR CHEST 1 VW Routine 11/03/2024 3:37 PM EDT ECG 12-LEAD Routine 11/03/2024 3:36 PM EDT ECG 12-LEAD Routine 2024 3:35 PM EDT from Last 3 Months Results * X-ray chest 2 views (11/09/2024 3:40 PM EDT) Only the most recent of2 resultswithin the time period is included. Anatomical Region Laterality Modality Body, Chest N/A [...] PROCEDURE: PERMANENT PACEMAKER IMPLANT IMPLANTED DEVICE INFORMATION: Metaconomy pulse generator, model L311, serial number [id number] at the L prepectoral site. Atrial lead 7841, 52 cm, serial number [id number]. Right ventricular lead 7842, 59 cm, serial number [id number]. ATTENDING PROVIDER: Robert Veloz MD/SABA, [facility] MODERATE SEDATION FOR PROCEDURE: Moderate sedation was [...] give written informed consent after revisiting the olosn portions of the risk versus benefit profile [...] months for device check. Robert Veloz MD/SABA, [facility], [facility] Cardiac Tissue Coordinator [facility] us Robert Veloz [...] XCELERA TAPSE 1.93 cm XCELERA AV peak icrilo 277.00 cm/s XCELERA LVOT peak cirilo 1.17 [...] proximal 13 cm XCELERA Left Ventricle Mass 188.56986 [id number] 4 g XCELERA Interventricular Septum Diastolic Thickness [...] The left ventricular wall motion is normal. us Sofiya Eisenberg WHEEL BRAIDER-CUPOLA MELTER CV ECHO ORDERABLES Fi nal Result * (ABNORMAL) Procalcitonin (11/09/2024 2:41 AM EDT) PROCALCITONIN 0.08(H) <0.05 ng/mL 11/09/2024 3:31 AM EDT [facility] Blood 11/09/2024 2:41 AM EDT 11/09/2024 2:41 AM EDT Narrative [facility] - 11/09/2024 3:31 AM EDT <0.50 ng/mL - Low risk of severe sepsis and/or septic shock. <2.00 ng/mL - Recommend retesting within 6-24 hours. >2.00 ng/mL - High risk of sepsis and/or septic shock. [employer] BRAIDER-CUPOLA MELTER LAB BLOOD ORDERABLES Final Result Performing Organization Address City/[facility]/ZIP Co de Phone Number [facility] [address] [place] [address], [place] [phone] * Lactate w/ Reflex (11/09/2024 2:41 AM EDT) LACTATE W/REFLEX 1.1 0.4 - 2.0 mmol/L 11/09/2024 4:26 AM EDT [facility] Blood Venous blood / Unknown 11/09/2024 2:41 AM EDT 11/09/2024 2:41 AM EDT Narrative [facility] - 11/09/2024 4:26 AM EDT Result did not trigger repeat Lactate, re-order if needed. [employer] [employer]RA[employer]-CUPOLA MELTER LAB BLOOD ORDERABLES Final Result Performing Organization Address City/[facility]/ZIP Co de Phone Number [facility] [address] [place] [address], [place] [phone] * (ABNORMAL) CBC auto differential (11/09/2024 2:41 AM EDT) Only the most recent of2 resultswithin the time period is included. WBC 15.7(H) 4 - 11 x10E9/L 11/09/2024 3:57 AM EDT [facility] RBC Count 4.25 4.1 - 5.7 X10E12/L 11/09/2024 3:57 AM EDT [facility] Hemoglobin 11.7(L) 13 - 17 g/dL 11/09/2024 3:57 AM EDT [facility] Hematocrit 35.1(L) 39 - 50 % 11/09/2024 3:57 AM EDT [facility] MCV 83 80 - 100 fL 11/09/2024 3:57 AM EDT [facility] MCH 27.6 27 - 34 pg 11/09/2024 3:57 AM EDT [facility] MCHC 33.4 32 - 36 g/dL 11/09/2024 3:57 AM EDT [facility] RDW 16.5(H) 11.5 - 15 % 11/09/2024 3:57 AM EDT [facility] Platelet Count 254 150 - 450 X10E9/L 11/09/2024 3:57 AM EDT [facility] MPV 6.9(L) 7 - 12 fL 11/09/2024 3:57 AM EDT [facility] Myelocyte 1 % 11/09/2024 3:57 AM EDT [facility] Comment:This is an appended report. These results have been appended to a previously preliminary verified report. Metamyelocytes Relative 2 % 11/09/2024 3:57 AM T [facility] Comment:This is an appended report. These results have been appended to a previously preliminary verified report. Neutrophils Relatives 73 % 11/09/2024 3:57 AM T [facility] Comment:This is an appended report. These results have been appended to a previously preliminary verified report. Lymphocytes Relative 11 % 11/09/2024 3:57 AM EDT [facility] Comment:This is an appended report. These results have been appended to a previously preliminary verified report. Monocytes Relative 11 % 11/09/2024 3:57 AM T [facility] Comment:This is an appended report. These results have been appended to a previously preliminary verified report. Eosinophils Relative 1 % 11/09/2024 3:57 AM T [facility] Comment:This is an appended report. These results have been appended to a previously preliminary verified report. Neutrophils Absolute (M) 11.5(H) 1.5 - 6.6 10*3/uL 11/09/2024 3:57 AM EDT [facility] Comment:This is an appended report. These results have been appended to a previously preliminary verified report. Lymphocytes Absolute 1.8 1.0 - 3.5 10*3/uL 11/09/2024 3:57 AM EDT [facility] Comment:This is an appended report. These results have been appended to a previously preliminary verified report. Monocytes Absolute 1.8(H) 0.0 - 0.9 10*3/uL 11/09/2024 3:57 AM EDT [facility] Comment:This is an appended report. These results have been appended to a previously preliminary verified report. Eosinophils Absolute 0.2 0.0 - 0.4 10*3/uL 11/09/2024 3:57 AM EDT [facility] Comment:This is an appended report. These results have been appended to a previously preliminary verified report. RBC Morphology Normal 11/09/2024 3:57 AM EDT [facility] Comment:This is an appended report. These results have been appended to a previously preliminary verified report. Differential Type CELLAVISION DIFFERENTIAL 11/09/2024 3:57 AM EDT [facility] Comment:This is an appended report. These results have been appended to a previously preliminary verified report. Blood 11/09/2024 2:41 AM EDT 11/09/2024 2:41 AM EDT Lauren Guardado WHEEL BRAIDER-CUPOLA MELTER LAB BLOOD ORDERABLES Final Result [facility] [address] [place] [address], [place] [phone] * (ABNORMAL) Comprehensive metabolic panel (11/09/2024 2:41 AM EDT) Only the most recent of2 resultswithin the time period is included. SODIUM 138 134 - 146 mmol/L 11/09/2024 3:28 AM [facility] POTASSIUM 4.2 3.5 - 5.0 mmol/L 11/09/2024 3:28 AM [facility] CHLORIDE 100 98 - 109 mmol/L 11/09/2024 3:28 AM [facility] CARBON DIOXIDE 28 22 - 32 mmol/L 11/09/2024 3:28 AM [facility] ANION GAP 10 5 - 15 mmol/L 11/09/2024 3:28 AM [facility] BLOOD UREA NITROGEN 25 5 - 27 mg/dL 11/09/2024 3:28 AM [facility] CREATININE 0.65 0.60 - 1.30 mg/dL 11/09/2024 3:28 AM [facility] Comment:METHOD TRACEABLE TO IDTN STANDARD GLUCOSE 104(H) 65 - 99 mg/dL 11/09/2024 3:28 AM [facility] CALCIUM 8.6 8.5 - 10.5 mg/dL 11/09/2024 3:28 AM [facility] TOTAL PROTEIN 5.8(L) 6.0 - 8.0 g/dL 11/09/2024 3:28 AM [facility] ALBUMIN 3.4 3.2 - 5.3 g/dL 11/09/2024 3:28 AM [facility] ALKALINE PHOSPHATASE 53 39 - 130 U/L 11/09/2024 3:28 AM [facility] AST 13 <=41 U/L 11/09/2024 3:28 AM [facility] ALT 26 <=40 U/L 11/09/2024 3:28 AM [facility] BILIRUBIN,TOTAL 0.4 0.3 - 1.2 mg/dL 11/09/2024 3:28 AM [facility] EGFR Non-Race Dependent >90 >=60 ml/min/1.7 3sq.m 11/09/2024 3:28 AM [facility] Comment: Reported eGFR is based on the CKD-EPI 2020 equation that does not use a race coefficient. Blood 11/09/2024 2:41 AM EDT 11/09/2024 2:41 AM EDT Lauren Guardado WHEEL BRAIDER-CUPOLA MELTER LAB BLOOD ORDERABLES Final Result [facility] [address] [place] [address], * Troponin I, High Sensitivity 1 Hour (11/08/2024 5:32 PM EDT) TROPONIN I, HIGH SENSITIVITY 4 <21 ng/L 11/08/2024 6:19 PM EDT [facility] Blood Venous blood / Unknown 11/08/2024 5:32 PM EDT 11/08/2024 5:46 PM EDT Sean Hayes MD LAB BLOOD ORDERABLES Final Resu lt [facility] [address] [place] [address], * X-ray chest 1 view (11/08/2024 4:59 PM EDT) Only the most recent of3 resultswithin the time period is included. Anatomical Region Laterality Modality Body, Chest N/A [...] Moise Fatima MD on 11/08/2024 5:03 PM us Sean Hayes MD IMG DIAGNOSTIC IMAGING ORDERABL ES Final Result * Troponin I, High Sensitivity 0 Hour (11/08/2024 4:24 PM EDT) TROPONIN I, HIGH SENSITIVITY 4 <21 ng/L 11/08/2024 4:58 PM EDT [facility] Blood Venous blood / Unknown 11/08/2024 4:24 PM EDT 11/08/2024 4:29 PM EDT us Sean Hayes MD LAB BLOOD ORDERABLES Final Resu lt Performing Organization Address [facility]/ZIP Co de Phone Number [facility] [address] [place] [address], * Thyroid profile includes TSH FT4 (11/08/2024 4:24 PM EDT) FREE T4 0.88 0.61 - 1.60 ng/dL 11/08/2024 5:09 PM EDT [facility] TSH 0.66 0.49 - 4.67 uIU/mL 11/08/2024 5:09 PM EDT [facility] Blood Venous blood / Unknown 11/08/2024 4:24 PM EDT 11/08/2024 4:29 PM EDT us Sean Hayes MD LAB BLOOD ORDERABLES Final Resu lt [address] [place] [address], [place] * (ABNORMAL) APTT (11/08/2024 4:24 PM EDT) APTT 25(L) 26 - 37 sec 11/08/2024 4:42 PM EDT [facility] Blood Venous blood / Unknown 11/08/2024 4:24 PM EDT 11/08/2024 4:29 PM EDT us Sean Hayes MD LAB BLOOD ORDERABLES Final Resu lt Performing Organization Address [facility] Co de Phone Number [address] [place] [address], [place] * Protime & INR (11/08/2024 4:24 PM EDT) PROTIME 12.4 9.8 - 13.2 sec 11/08/2024 4:42 PM EDT [facility] INR 1.1 0.9 - 1.2 11/08/2024 4:42 PM EDT [facility] Blood Venous blood / Unknown 11/08/2024 4:24 PM EDT 11/08/2024 4:29 PM EDT us Sean Hayes MD LAB BLOOD ORDERABLES Final Resu lt Performing Organization Address City/[facility] Co de Phone Number [address] [place] [address], [place] * D-Dimer (11/08/2024 4:24 PM EDT) D DIMER 175 1 - 255 ug/mL 11/08/2024 4:42 PM EDT [facility] Comment:Results <255 ng/mL D DU: The presensence [...] ORDERABLES Final Resu lt Performing Organization Address [facility]/ZIP Co de Phone Number [address] [place] [address], [place] * B-type natriuretic peptide (11/08/2024 4:24 PM EDT) BNP 64 <=100 pg/mL 11/08/2024 4:58 PM EDT [facility] Blood Venous blood / Unknown 11/08/2024 4:24 PM EDT 11/08/2024 4:29 PM EDT us Sean Hayes MD LAB BLOOD ORDERABLES Final Resu lt Performing Organization Address [facility] Co de Phone Number [address] [place] [address], [place] * Magnesium (11/08/2024 4:24 PM EDT) MAGNESIUM 2.1 1.8 - 2.6 mg/dL 11/08/2024 4:49 PM EDT [facility] Blood Venous blood / Unknown 11/08/2024 4:24 PM EDT 11/08/2024 4:29 PM EDT us Sean Hayes MD LAB BLOOD ORDERABLES Final Resu lt Performing Organization Address [facility] de Phone Number [address] [place] [address], [place] * ECG 12 lead (11/08/2024 4:18 PM EDT) Only the most recent of3 resultswithin the time period is included. 11/08/2024 4:18 PM EDT Narrative [facility] - 11/08/2024 6:45 PM EDT us Sean Hayes MD ECG ORDERABLES Final Result Performing Organization Address [facility] Co de Phone Number [facility] * POCT EKG (11/08/2024) us Maritza Best MD ECG ORDERABLES Final Res ult Performing Organization Address [facility] Co de Phone Number MANUALLY TRANSCRIBED RESULTS * Multiple labs (11/06/2024 3:45 PM EDT) us Scanning Provider External MS IMAGING Final Result Performing Organization Address [facility] de Phone Number MANUALLY TRANSCRIBED RESULTS from Last 3 Months Insurance ANTH Advance Directives * Full Code (Latest Code Status on File) Date Activated Date Inactivated Comments 11/09/2024 1:06 AM 11/09/2024 8:22 PM Care Teams Dental Equipment Mechanic Relationship Specialty Start Date End Date Brandi Alvarado, WHEEL BRAIDER-CUPOLA MELTER [address] [place] [address] PCP - General Nurse Practitioner 11/08/24
--- OUTSIDE RECORDS SUMMARY | 2024-11-13 08:43 | XMS_ITS | Encounter Summary ---
Author Organization [facility] Address [address] [place], [place] [id number] Care Team Providers Care Beauty Sales Consultant Name Role Phone Jenny Brandi Fowler APRN.[facility] Primary Care Provider [phone] [phone] Source Comments In the event this information is protected by the Federal Confidentiality of Alcohol and Drug AbusePatient Records regulations: The Federal rules restrict any use of the information to criminally investigate or prosecute any alcohol or drug abuse patient.[facility] Encounter Details Date Type Department Care Team (Latest Contact Info) Description 11/08/2024 H&P External-NonCCF Provider, External, PA-C Do not enter address information under generic External Provider. Social History Tobacco Use Types Packs/Day Years [...] is lower risk 9 10/27/2024 Data from: https://www.neighborhoodatlas.medicine.[facility].edu/. Last address used for calculation [address] [facility] 10/27/2024 Sex and Gender Information Value Date Recorded Sex Assigned at Not on file Legal Sex Male 8:04 AM EST Gender Identity Not on file Sexual Orientation Not on file documented as of this encounter Plan of Treatment Upcoming Encounters Date Type Department Care Team (Latest Contact Info) Description 11/15/2024 11:00 AM EDT Office Visit Pulmonary Medicine [address] [address] Alexandre Robertson MD [address]23 [place] [address] New Consultation 11/15/2024 12:10 PM EDT Procedure Cardiology [address] [address] PreOp Testing 11/17/2024 1:00 PM EDT Office Visit Radiation Oncology [address] [place] [address] [place] [address] Ezra Moreno MD [address] [place] [id number] Consult dx Lung cancer 11/17/2024 2:00 PM EDT Visit (SP) Office Hematology/Oncology [address] [place] [address] [place] [address] Kvng Perez MD [address] [place] [id number] 2 week follow up 11/20/2024 11:30 AM EDT Hospital Encounter Admitting [address] [address] Alexandre Robertson MD [address] [place] [address] 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] 11/20/2024 11:30 AM EDT - 11/20/2024 1:30 PM EDT Surgery Admitting [address] [address] Alexandre Robertson MD [address] [place] [address] BRONCHOSCOPY FLEXIBLE ADULT 11/30/2024 3:30 PM EDT [facility] Nutrition Therapy [address] [place] [address] Jesusita Pabon, JAMIL [address] [place] [address] Follow up lung/ severe weight loss Scheduled Procedures Name Priority Associated Diagnoses Date/Ti me BRONCHOSCOPY FLEXIBLE ADULT Bronchiolar disease 11/20/2024 11:30 AM EDT documented as of this encounter Visit Diagnoses Not on filedocumented in this encounter Care Teams Beauty Sales Consultant Relationship Specialty Start Date End Date Brandi Alvarado, POLICE LIEUTENANT.FUN HOUSE ATTENDANT [address] [place] [address] PCP - General Nurse Practitioner 10/27/24 documented as of this encounter
--- OUTSIDE RECORDS SUMMARY | 2024-11-13 08:43 | XMS_ITS | Clinical Summary ---
Author Organization [facility] Address [address] [place], [place] [address] Care Team Providers Care Investigator Name Role Phone Brandi Alvarado APRN.CNP Primary Care Provider [phone] [phone] Allergies Active Allergy Reactions Criticality Noted Date [...] Encounters Date Type Department Care Team Description 11/08/2024 H&P External-NonCCF Provider, External, PA-C 11/07/2024 Telephone Hematology/Oncology [address] [place] [address] [place] [address] Brittany Marie RN 11/07/2024 Telephone Hematology/Oncology [address] [place] [address] [place] [address] Kvng Perez MD FMLA Paperwork 11/01/2024 Telephone Hematology/Oncology [address] [place] [address] [place] [address] Brittany Marie, RN Patient Update; Appointment 11/01/2024 Telephone [facility] G061 [address] [place] [address] Appointment (PreOp Bronch) 10/31/2024 Patient Update Pulmonary Medicine 2048 [place] [id number] Maryuri Carrasquillo MD Bronchoscopy Scheduling- cleared (Initial Bronch Request ) 10/30/2024 2:30 PM EDT Education Nutrition Therapy [address] [place] [address] Nutrition Telephone 10/27/2024 9:00 AM EDT Visit (SP) Office Hematology/Oncology [address] [place] [address] [place] [address] Kvng Perez MD Malignant neoplasm of lower lobe of right lung (HCC) (Primary Dx) 10/27/2024 Telephone Pulmonary Medicine 20[address] [place] [id number] Janell An Bronchoscopy Referral 10/25/2024 Abstract Hematology/Oncology [address] [facility] [place] [address] Kvng Perez MD from Last 3 Months [...] is lower risk 9 10/27/2024 Data from: https://www.neighborhoodatlas.medicine.[facility].edu/. Last address used for calculation [address] [...] AM EDT Office Visit Pulmonary Medicine [address] [address] Alexandre Robertson MD [address] [place] [address] New Consultation 11/15/2024 12:10 PM EDT Procedure Cardiology [address] [address] PreOp Testing 11/17/2024 1:00 PM EDT Office Visit Radiation Oncology [address] [place] [address] [place] [address] Ezra Moreno MD [address] [place] [address] [place] [address] Consult dx Lung cancer 11/17/2024 2:00 PM EDT Visit (SP) Office Hematology/Oncology [address] [place] [address] [place] [address] Kvng Perez MD [address] [facility] [place] [address] 2 week follow up 11/20/2024 11:30 AM EDT Hospital Encounter Admitting [address] [address] Alexandre Robertson MD [address] [place] [address] 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] 11/20/2024 11:30 AM EDT - 11/20/2024 1:30 PM EDT Surgery Admitting [address] [address] Alexandre Robertson MD [address] [place] [address] BRONCHOSCOPY FLEXIBLE ADULT 11/30/2024 3:30 PM EDT [facility] Nutrition Therapy [address] [place] [phone] Bee Pabon, RD [address] [place] [address] Follow up lung/ severe weight loss Scheduled [...] Priority Date/Time Associated Diagnosis Comments EXTERNAL IMAGING 11/08/2024 8:51 AM EDT EXTERNAL LAB 11/08/2024 8:51 AM EDT EXTERNAL LAB 11/08/2024 8:51 AM EDT EXTERNAL CARDIOLOGY 11/08/2024 8 :51 AM EDT EXTERNAL IMAGING 11/08/2024 8:51 AM EDT EXTERNAL IMAGING 11/08/2024 8:37 AM EDT EXTERNAL IMAGING 11/08/2024 8:37 AM EDT EXTERNAL IMAGING 10/24/2024 1:51 PM EDT [...] Last 3 Months Results * EXTERNAL IMAGING (11/08/2024 8:51 AM EDT) Anatomical Region Laterality Modality Other us External Provider PA-C RADIOLOGY Final Res ult * EXTERNAL LAB (11/08/2024 8:51 AM EDT) Only the most recent of6 resultswithin the time period is included. us External Provider PA-C LABORATORY Final Res ult * EXTERNAL CARDIOLOGY (11/08/2024 8:51 AM EDT) us External Provider PA-C CARDIOLOGY Final Res ult * EXTERNAL IMAGING (11/08/2024 8:51 AM EDT) Anatomical Region Laterality Modality Other us External Provider PA-C RADIOLOGY Final Res ult * EXTERNAL IMAGING (11/08/2024 8:37 AM EDT) Anatomical Region Laterality Modality Other us External Provider PA-C RADIOLOGY Final Res ult * EXTERNAL IMAGING (11/08/2024 8:37 AM EDT) Anatomical Region Laterality Modality Other us External Provider PA-C RADIOLOGY Final Res ult * EXTERNAL IMAGING (10/24/2024 1:51 PM EDT) Anatomical Region Laterality Modality Other us External Provider PA-C RADIOLOGY Final Res ult * EXTERNAL PROCEDURE (10/24/2024 [...] PM EDT Images were obtained outside of [facility] Procedure Note Provider, [facility] - 10/23/2024 Images were obtained outside of [facility] us [facility] Provider RADIOLOGY Final Result * OT-CT ANGIO CHEST IMPORT (10/06/2024) Anatomical Region Laterality Modality Other 10/06/2024 Narrative 10/23/2024 6:25 PM EDT Images were obtained outside of [facility] Procedure Note Provider, [facility] [place] - 10/23/2024 Images were obtained outside of [facility] Provider RADIOLOGY Final Result * CT-CT CHEST WO CON IMPORT (10/06/2024) Anatomical Region Laterality Modality Other 10/06/2024 Narrative 10/23/2024 2:57 PM EDT Images were obtained outside of [facility] Procedure Note Provider, [facility] [place] - 10/23/2024 Images were obtained outside of [facility] Provider RADIOLOGY Final Result from Last [address] [place] [address] CARD PPO OOS Care Teams Investigator Relationship Specialty Start Date End Date Brandi Alvarado, VINAY.CALENDERER [address] [place] [address] PCP - General Nurse Practitioner 10/27/24
--- OUTSIDE RECORDS SUMMARY | 2024-11-13 08:43 | XMS_ITS | Encounter Summary ---
Author Organization [facility] Address [address] [place] [address] Care Team Providers Care Director Video Name Role Phone Jenny Brandi Fowler APRN.[facility] Primary Care Provider [phone] [phone] Source Comments In the event this information is protected by the Federal Confidentiality of Alcohol and Drug AbusePatient Records regulations: The Federal rules restrict any use of the information to criminally investigate or prosecute any alcohol or drug abuse patient.[facility] Encounter Details Date Type Department Care Team (Late st Contact Info) Description 11/07/2024 Telephone Hematology/Oncology [address] [place] [address] [place] [address] Brittany Marie, RN Social History Tobacco Use Types Packs/Day Years [...] risk 9 10/27/2024 Data from: https://www.neighborhoodatlas.medicine.[facility].edu/. Last address used for calculation [address] [facility] 10/27/2024 Sex and Gender Information Value Date Recorded Sex Assigned at Not on file Legal Sex Male 8:04 AM EST Gender Identity Not on file Sexual Orientation Not on file documented as of this encounter Miscellaneous Notes * Telephone Encounter - Victoria Pack - 11/08/2024 9:01 AM EDT Records scanned. * Telephone Encounter - Brittany Marie, PRITI - 11/07/2024 4:25 PM EDT Pt was in ER at [facility] twice over the weekend. First pt diagnosed with vertigo and sent homeon Meclizine. Pt became bradycardic and was then admitted to [facility] with bradycardia and pneumonia. Pt discharged home on Levaquin, taper prednisone and continues meclizine as needed. He is on a holter monitor and sees [facility]ology tomorrow. Pt scheduled for AV/RYAN WednesdayNovember 10. just wanted providers updated. Reyna: please obtain records AV/RYAN: FYI Brittany Marie, RN documented in this encounter Plan of Treatment Upcoming Encounters Date Type Department Care Team (Latest Contact Info) Description 11/15/2024 11:00 AM EDT Office Visit Pulmonary Medicine [address] [address] Alexandre Robertson MD [address] [place] [address] New Consultation 11/15/2024 12:10 PM EDT Procedure Cardiology [address] [address] PreOp Testing 11/17/2024 1:00 PM EDT Office Visit Radiation Oncology [address] [facility] [address] Ezra Moreno MD [address] [facility] [place] [address] Consult dx Lung cancer 11/17/2024 2:00 PM EDT Visit (SP) Office Hematology/Oncology [address] [place] [address] [place] [address] Kvng Perez MD [address] [facility] [place] [address] 2 week follow up 11/20/2024 11:30 AM EDT Hospital Encounter Admitting [address] [address] Alexandre Robertson MD [address] [place] [address] 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] 11/20/2024 11:30 AM EDT - 11/20/2024 1:30 PM EDT Surgery Admitting [address] [address] Alexandre Robertson MD [address] [place] [address] BRONCHOSCOPY FLEXIBLE ADULT 11/30/2024 3:30 PM EDT [facility] Nutrition Therapy [address] [place] [address] Jesusita Pabon, RD [address] [place] [address] Follow up lung/ severe weight loss Scheduled Procedures Name Priority Associated Diagnoses Date/Ti me BRONCHOSCOPY FLEXIBLE ADULT Bronchiolar disease 11/20/2024 11:30 AM EDT documented as of this encounter Visit Diagnoses Not on filedocumented in this encounter Care Teams Director Video Relationship Specialty Start Date End Date Brandi Alvarado, HEART DOCTOR.ALTERATIONS EXPERT [address] [place] [address] PCP - General Nurse Practitioner 10/27/24 documented as of this encounter
--- OUTSIDE RECORDS SUMMARY | 2024-11-13 08:43 | XMS_ITS | Encounter Summary ---
Author Organization [facility] Address [address] [place] [address] Care Team Providers Care Concrete Products Machine Operator Name Role Phone Jenny Brandi Fowler APRN.[facility] Primary Care Provider [phone] [phone] Source Comments In the event this information is protected by the Federal Confidentiality of Alcohol and Drug AbusePatient Records regulations: The Federal rules restrict any use of the information to criminally investigate or prosecute any alcohol or drug abuse patient.[facility] Reason for Visit * Reason Comments Appointment PreOp Bronch Encounter Details Date Type Department Care Team (Late st Contact Info) Description 11/01/2024 Telephone HOSP MAIN G050 [address] [place] [address] Appointment (PreOp [...] is lower risk 9 10/27/2024 Data from: https://www.neighborhoodatlas.medicine.[facility]/. Last address used for calculation [address] [...] AM EDT Office Visit Pulmonary Medicine [address] [address] Alexandre Robertson MD [address] [place] [address] New Consultation 11/15/2024 12:10 PM EDT Procedure Cardiology [address] [address] PreOp Testing 11/17/2024 1:00 PM EDT Office Visit Radiation Oncology [address] [place] [address] [address] [place] [id number] Ezra Moreno MD [address] [facility] [address] [place] [id number] Consult dx Lung cancer 11/17/2024 2:00 PM EDT Visit (SP) Office Hematology/Oncology [address] [place] [address] [address] [place] [phone] Kvng Perez MD [address] [facility] [address] [place] [id number] 2 week follow up 11/20/2024 11:30 AM EDT Hospital Encounter Admitting [address] [address] Alexandre Robertson MD [address] [place] [address] 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] 11/20/2024 11:30 AM EDT - 11/20/2024 1:30 PM EDT Surgery Admitting [address] [address] Alexandre Robertson MD [address] [place] [address] BRONCHOSCOPY FLEXIBLE ADULT 11/30/2024 3:30 PM EDT [facility] Nutrition Therapy [address] [place] [address] Baylis Bee, RD [address] [place] [address] Follow up lung/ severe weight loss Scheduled Procedures Name Priority Associated Diagnoses Date/Ti me BRONCHOSCOPY FLEXIBLE ADULT Bronchiolar disease 11/20/2024 11:30 AM EDT documented as of this encounter Visit Diagnoses Not on filedocumented in this encounter Care Teams Concrete Products Machine Operator Relationship Specialty Start Date End Date Brandi Alvarado, VET TECH.PASTEURIZING MACHINE OPERATOR [address] [place] [address] PCP - General Nurse Practitioner 10/27/24 documented as of this encounter
--- OUTSIDE RECORDS SUMMARY | 2024-11-13 08:43 | XMS_ITS | Encounter Summary ---
Author Organization [facility] Address [address] [place] [address] Care Team Providers Care Restaurant Hourly Team Member Name Role Phone Brandi Alvarado APRN.[facility] Primary Care Provider [phone] [phone] Source Comments In the event this information is protected by the Federal Confidentiality of Alcohol and Drug AbusePatient Records regulations: The Federal rules restrict any use of the information to criminally investigate or prosecute any alcohol or drug abuse patient.[facility] Reason for Referral * Outpatient Procedure (Urgent) - Authorized Specialty Diagnoses / Procedures Referred By Contac t Referred To Contact HEART [facility] [place] Diagnoses Pre-op testing Procedures ECG COMPLETE ECG ROUTINE ECG W/LEAST 12 LDS W/I&R Maryuri Carrasquillo MD [address] [place] [address] Phone: tel: fax: [address] [address] Referral ID Status Reason Start Date Expiration Date Visits Requested Visits Authorized [id number] Authorized Auto-Generat ed Referral 11/03/2024 06/13/2025 1 1 Reason for Visit * Reason Onset Date Comments Bronchoscopy Scheduling- cleared 10/31/2024 Initial Bronch Request Encounter Details Date Type Department Care Team (Late st Contact Info) Description 10/31/2024 Patient Update Pulmonary Medicine [address] [address] Maryuri Carrasquillo MD [address] [place] [address] Bronchoscopy Scheduling- cleared (Initial Bronch Request ) [...] is lower risk 9 10/27/2024 Data from: https://www.neighborhoodatlas.medicine.[facility]/. Last address used for calculation [address] [...] on anticoagulants/anti-plt therapy?: No Nursing Considerations: (ie: penitentiary, TB, respiratory isolation, clinical trial, Specific protocol etc.) none Additional notes to the pelletising extruder operator: OSH Bronchoscopy showed an mass obstructing BI, patient requestedIP evaluation. SqCell Carcinoma. T4N2M0 IIIB for now, starting chemorads Consultation request/referral by: Referring Physician: Dr. Kvng Perez Address: [address] Phone #: [phone] Fax #: [phone] Reviewed by: MD Maryuri Aguilar MD October [...] AM EDT Office Visit Pulmonary Medicine [address] [address] Alexandre Robertson MD [address] [place], [place] [address] New Consultation 11/15/2024 12:10 PM EDT Procedure Cardiology [address] [address] PreOp Testing 11/17/2024 1:00 PM EDT Office Visit Radiation Oncology [address] [facility] [place] [address] Ezra Moreno MD [address] [facility] [place] [address] Consult dx Lung cancer 11/17/2024 2:00 PM EDT Visit (SP) Office Hematology/Oncology [address] [place] [place] [address] Kvng Perez MD [address] [facility] [place] [address] 2 week follow up 11/20/2024 11:30 AM EDT Hospital Encounter Admitting [address] [address] Alexandre Robertson MD [address] [place] [address] 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] 11/20/2024 11:30 AM EDT - 11/20/2024 1:30 PM EDT Surgery Admitting [address] [address] Alexandre Robertson MD [address] [place] [address] BRONCHOSCOPY FLEXIBLE ADULT 11/30/2024 3:30 PM EDT [facility] Nutrition Therapy [address] [place] [address] Bee Pabon, RD [address] [place] [address] Follow up lung/ severe weight loss Scheduled [...] bronchus documented in this encounter Care Teams Restaurant Hourly Team Member Relationship Specialty Start Date End Date Brandi Alvarado, OIL WELL DRILLER.IT PROJECT MANAGER [address] [place] [address] PCP - General Nurse Practitioner 10/27/24 documented as of this encounter
--- NOTE | 2024-11-13 08:46 | XR_ITS ---
The [address] [address] Patient Name: JATIN KOCH MRN: [id number] date: 1960 Sex: M Assigned Patient Location: US Current Patient Location: US Accession/Order Number: [id number] Exam Date: 11/13/2024 09:49 Report Date: 11/13/2024 09:51 At the request of: TING SESAY Procedure: XR abdomen 1V SINGLE VIEW ABDOMEN COMPARISON: 06/16/2023 CLINICAL DATA: Follow-up kidney stones. Supine view of the abdomen and pelvis was obtained. There is moderate air within the stomach. There is air and stool within the colon. No dilated small bowel loops are present. No obvious radiopaque renal or ureteral stones are seen. No soft tissue masses are identified. There are degenerative changes at the spine. XR/XR abdomen 1V IMPRESSION: NO OBVIOUS RADIOPAQUE STONES. Impression dictated by: Josseline Shahid M.D. 11/13/2024 9:51 AM Dictation Location: [place] [address] Electronically authenticated by: [id number] Y Date: 11/13/2024 09:51
--- NOTE | 2024-11-13 08:46 | US_ITS ---
The [address] [address] Patient Name: JATIN KOCH MRN: [id number] date: 1960 Sex: M Assigned Patient Location: US Current Patient Location: US Accession/Order Number: [id number] Exam Date: 11/13/2024 09:45 Report Date: 11/13/2024 09:49 At the request of: TING SESAY Procedure: US renal BI BILATERAL RENAL AND BLADDER ULTRASOUND CLINICAL HISTORY: History of kidney stones. COMPARISON: 06/16/2023 Estimation of renal size is approximately 11.0 cm on the right and 10.7 cm on the left. There are some tiny echogenic foci at the corticomedullary junction of the midpole of both kidneys with twinkle artifact ingesting potential stones. No hydronephrosis is seen. A cyst is visualized at the lower pole of the right kidney measuring 4.0 x 4.0 x 3.8 cm. There is a smaller cyst at the superior pole on that side measuring 2.1 x 1.5 x 1.9 cm. There is no perinephric fluid. The urinary bladder is partially distended with a volume of 112 ml. No contour or intraluminal abnormalities are seen. US/US renal BI IMPRESSION: RIGHT RENAL CYSTS. SUSPECTED BILATERAL NEPHROLITHIASIS. NO OBSTRUCTIVE UROPATHY. Impression dictated by: Josseline Shahid M.D. 11/13/2024 9:49 AM Dictation Location: [place] [address] Electronically authenticated by: [id number] Y Date: 11/13/2024 09:49
[2024-11-13 10:41] LABS: Prostate Specific Antigen Dx 0.24 ng/mL (<=4.00)
== END 2024-11-13 08:38 | disposition home or self-care (01) ==
LOC: US 08:38
PROVIDERS: PCP Nurse Practitioner; Visit Provider Physician Assistant
DX: N20.0 Calculus of kidney (principal); Z12.5 Encounter for screening for malignant neoplasm of prostate; N28.1 Cyst of kidney, acquired
CPT/HCPCS: 36415; 74018; 76775; 84153

== ENCOUNTER 2024-11-27 15:42 | Emergency (ER) | payer BC, SELFPAY ==
[2024-11-27 15:48] VITALS: BP 108/77; PULSE 72; TEMP 36.8; O2SAT 95; BMI 28.7
--- NOTE | 2024-11-27 16:04 | ED.GENADUL1 ---
HPI HPI - General Adult General Chief complaint: Fever Stated complaint: FEVER Time Seen by Provider: 11/27/24 15:44 Source: patient Mode of arrival: walk-in History of Present Illness HPI narrative: 89 male presents to the emergency department for a cough and a fever. He has not been coughing up any phlegm and his temperature was 102 degrees at home. The patient's gives most of the history. She reports that he has a known history of lung cancer but has not had radiation or chemotherapy. Last night he was quite sweaty and soaked the bed in which she was sleeping. He is not coughing up any phlegm or blood. He is not complain of any pain. No abdominal pain vomiting or dysuria. The states that she talked to his cancer specialist who told him to come to the hospital to get blood test done Related Data Home Medications ?Medication ?Instructions ?Recorded ?Confirmed acetaminophen 325 mg tablet 650 mg PO Q6H PRN pain 10/12/24 11/27/24 (Tylenol) dextromethorphan-guaifenesin 30 1 tab PO DAILY 10/12/24 11/27/24 mg-600 mg tablet extended [id number] hr (Mucinex DM) fluticasone propionate 50 1 spray intranasal DAILY PRN nasal 10/12/24 11/27/24 mcg/actuation nasal congestion spray,suspension (24 Hour Allergy Relief) dcpmqmfomywo-lbvcdbrn-ocvjtv 1 tab PO DAILY 10/12/24 11/27/24 tablet (Multivitamin 50 Plus tablet) benzonatate 200 mg capsule 200 mg PO DAILY PRN cough 11/02/24 11/27/24 metoprolol succinate 25 mg 25 mg PO .QD 11/03/24 11/27/24 tablet,extended release 24 hr Previous Rx's ?Medication ?Instructions ?Recorded meclizine 25 mg tablet 25 mg PO TID #20 tabs 11/02/24 Allergies Allergy/AdvReac Type Severity Reaction Status Date / Time codeine Allergy Severe Flushing Verified 11/27/24 15:46 sulfamethoxazole (From AdvReac Severe difficulty Verified 11/27/24 15:46 Bactrim) urinating trimethoprim (From Bactrim) AdvReac Severe Unknown Verified 11/27/24 15:46 Opioid HPI Opioid Management Most Recent Opioid Data: Last Pain Scale 4 11/02/24, 22:41 Last ORT Total Score 0 11/04/24, 03:16 Last ORT Risk Category Low Risk 11/04/24, 03:16 Review of Systems ROS Narrative A ten point review of systems is negative except as noted above. [facility] Medical History (Updated 11/27/24 @ 18:10 by Jake Porras MD) Severe protein-calorie malnutrition ?E43 - Unspecified severe protein-calorie malnutrition (ICD-10) Hypomagnesemia ?E83.42 - Hypomagnesemia (ICD-10) Iron deficiency anemia ?D50.9 - Iron deficiency anemia, unspecified (ICD-10) Orthostatic hypotension ?I95.1 - Orthostatic hypotension (ICD-10) Right bundle branch block ?I45.10 - Unspecified right bundle-branch block (ICD-10) Intraventricular conduction delay ?I45.9 - Conduction disorder, unspecified (ICD-10) Squamous cell lung cancer ?C34.90 - Malignant neoplasm of unspecified part of unspecified bronchus or lung (ICD-10) Immune deficiency disorder ?D84.9 - Immunodeficiency, unspecified (ICD-10) Vertigo ?R42 - Dizziness and giddiness (ICD-10) Recurrent syncope ?R55 - Syncope and collapse (ICD-10) Acute kidney injury ?N17.9 - Acute kidney failure, unspecified (ICD-10) Leukocytosis ?D72.829 - Elevated white blood cell count, unspecified (ICD-10) Pneumonia ?J18.9 - Pneumonia, unspecified organism (ICD-10) Respiratory distress ?R06.03 - Acute respiratory distress (ICD-10) Lactic acidosis ?E87.20 - Acidosis, unspecified (ICD-10) Sepsis ?A41.9 - Sepsis, unspecified organism (ICD-10) Lung cancer, lower lobe ?C34.30 - Malignant neoplasm of lower lobe, unspecified bronchus or lung (ICD-10) RLL pneumonia ?J18.9 - Pneumonia, unspecified organism (ICD-10) Carpal tunnel syndrome ?G56.00 - Carpal tunnel syndrome, unspecified upper limb (ICD-10) Back pain ?M54.9 - Dorsalgia, unspecified (ICD-10) Arthritis ?M19.90 - Unspecified osteoarthritis, unspecified site (ICD-10) Snores ?R06.83 - Snoring (ICD-10) Sleep apnea ?G47.30 - Sleep apnea, unspecified (ICD-10) Influenza ?J11.1 - Influenza due to unidentified influenza virus with other respiratory manifestations (ICD-10) Right lower lobe lung mass ?R91.8 - Other nonspecific abnormal finding of lung field (ICD-10) Skin cancer ?C44.90 - Unspecified malignant neoplasm of skin, unspecified (ICD-10) Hypoxia ?R09.02 - Hypoxemia (ICD-10) 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 - Shortness of breath (ICD-10) ?U09.9 - Post covid-19 condition, unspecified (ICD-10) HTN (hypertension) ?I10 - Essential (primary) hypertension (ICD-10) KERR (dyspnea on exertion) ?R06.09 - Other forms of dyspnea (ICD-10) Pneumonia ?J18.9 - Pneumonia, unspecified organism (ICD-10) COVID-19 ?U07.1 - COVID-19 (ICD-10) History of COVID-19 ?Z86.16 - Personal history of COVID-19 (ICD-10) Surgical History (Updated 10/12/24 @ 12:46 by Macy Goodrich NP) H/O transurethral resection of prostate ?Z98.890 - Other specified postprocedural states (ICD-10) ?Z90.79 - Acquired absence of other genital organ(s) (ICD-10) History of colonoscopy ?Z98.890 - Other specified postprocedural states (ICD-10) History of myringotomy ?Z98.890 - Other specified postprocedural states (ICD-10) History of carpal tunnel release ?Z98.890 - Other specified postprocedural states (ICD-10) History of carpal tunnel surgery ?Z98.890 - Other specified postprocedural states (ICD-10) History of tonsillectomy ?Z90.89 - Acquired absence of other organs (ICD-10) Family History (Updated 10/06/24 @ 23:50 by Svetlana Kimball RN) Father Family history of myocardial infarction Son Family history of stroke Other Family history of CHF (congestive heart failure) Social History (Updated 11/04/24 @ 02:55 by Mary Ellen Mary) Within the past year, how often did you have a drink containing alcohol: never Score interpretation: A score less than 4 is consistent with normal alcohol consumption. Smoking status: Former smoker Non-prescribed substance use: denies use Previous occupational history: retired Highest level of school completed/degree received: Associate degree: occupational, technical, vocational program Are you now , , , , never or living with a partner: In a typical week, how many times do you talk on the telephone with family, friends, or neighbors: once per week How often do you get together with friends or relatives: once per week Little interest or pleasure in doing things: not at all Feeling down, depressed, or hopeless: not at all Do you think of yourself as: straight/heterosexual Gender Identity: male Exam Narrative Exam Narrative: Nurses note and vital signs reviewed and patient is not hypoxic. General: The patient appears in no apparent distress. Patient is resting comfortably on cart. Skin: Warm, dry, no pallor noted. There is no rash noted. Head: Normocephalic, atraumatic Eye: Normal conjunctiva, no drainage Ears, Nose, Mouth, and Throat: oral mucosa is moist. Nares patent. Cardiovascular: Regular Rate and Rhythm Respiratory: A few rhonchi Back: non-tender GI: Soft and nontender Musculoskeletal: The patient has no evidence of calf tenderness, no pitting edema, symmetrical pulses noted bilaterally Neurological: A&O, normal speech Psychiatric: Cooperative Constitutional Vital Signs, click to edit/add: Last Vital Signs Temp 98.2 F 11/27/24 15:48 Pulse 72 11/27/24 15:48 Resp 18 11/27/24 15:48 BP 108/77 11/27/24 15:48 Pulse Ox 95 11/27/24 15:48 O2 Del Method Room Air 11/27/24 15:48 Course Vital Signs Vital signs: Vital Signs Temperature 98.2 F 11/27/24 15:48 Pulse Rate 72 11/27/24 15:48 Respiratory Rate 18 11/27/24 15:48 Blood Pressure 108/77 11/27/24 15:48 Pulse Oximetry 95 11/27/24 15:48 Oxygen Delivery Method Room Air 11/27/24 15:48 Temperature 98.2 F 11/27/24 15:48 Pulse Rate 72 11/27/24 15:48 Respiratory Rate 18 11/27/24 15:48 Blood Pressure 108/77 11/27/24 15:48 Pulse Oximetry 95 11/27/24 15:48 Oxygen Delivery Method Room Air 11/27/24 15:48 Medical Decision Making MDM Narrative Medical decision making narrative: There is no evidence of pneumonia on his chest x-ray. He is however positive for COVID. I spoke to the germination testing manager at the [facility] who recommends that the patient be discharged home. The patient is outside of the window for treatment with Paxlovid since he has been sick for 5 days. Treatment diagnosis and follow-up were discussed with the patient and his . Differential Diagnosis Differential Diagnosis: Pneumonia, URI, COVID Lab Data Lab results reviewed: Yes I reviewed the patient's lab results Labs: Lab Results 11/27/24 11/27/24 11/27/24 Range/Units 16:11 16:25 17:10 WBC 14.2 H (4.0-11.0) 10^3/uL RBC 4.04 L (4.70-6.10) 10^6/uL Hgb 11.2 L (14.0-18.0) g/dL Hct 35.3 L (42.0-54.0) % MCV 87.4 (80.0-94.0) fL MCH 27.7 (25.9-34.0) pg MCHC 31.7 (29.9-35.2) g/dL RDW 15.5 H (11.0-15.0) % Plt Count 285 (150-450) 10^3/uL MPV 9.5 (9.5-13.5) fL Neut % (Auto) 64.9 (43.0-75.0) % Lymph % (Auto) 17.3 L (20.5-60.0) % Candler % (Auto) 10.2 (1.7-12.0) % Eos % (Auto) 5.6 (0.9-7.0) % Baso % (Auto) 0.4 (0.2-2.0) % Neut # (Auto) 9.2 H (1.4-6.5) 10^3/uL Lymph # (Auto) 2.5 (1.2-3.8) 10^3/uL Candler # (Auto) 1.4 H (0.3-0.8) 10^3/uL Eos # (Auto) 0.8 H (0.0-0.7) 10^3/uL Baso # (Auto) 0.1 (0.0-0.1) 10^3/uL Abs Immat Gran (auto) 0.23 H (0.00-0.03) 10^3/uL Imm/Tot Granulo (auto) 1.6 H (0.0-0.5) % Sodium 136 (136-145) mmol/L Potassium 3.9 (3.5-5.1) mmol/L Chloride 98 (98-107) mmol/L Carbon Dioxide 26.7 (21.0-32.0) mmol/L Anion Gap 15.2 BUN 27.0 H (7.0-18.0) mg/dL Creatinine 0.99 (0.70-1.30) mg/dL Est GFR ( Amer) >60 (>=60 mL/min/1.73m^2) Est GFR (Non-Af Amer) >60 (>=60 mL/min/1.73m^2) BUN/Creatinine Ratio 27.3 Glucose 102 (74-106) mg/dL Calcium 10.8 H (8.5-10.1) mg/dL Urine Color Yellow (YELLOW) Urine Clarity Clear (CLEAR) Urine pH 5.5 (5.0-9.0) Ur Specific Stuart >=1.030 A (1.005-1.025) Urine Protein Negative (NEG/TRACE) mg/dL Urine Glucose (UA) Negative (NEGATIVE) mg/dL Urine Ketones Negative (NEGATIVE) mg/dL Urine Occult Blood Negative (NEGATIVE) Urine Nitrite Negative (NEGATIVE) Urine Bilirubin Negative (NEGATIVE) Urine Urobilinogen 0.2 (0.2-1.0) EU/dL Ur Leukocyte Esterase Negative (NEGATIVE) Urine RBC None seen (0-2) #/HPF Urine WBC None seen (NONE SEEN) #/HPF Ur Squamous Epith Cells Few A (NONE/RARE) #/LPF Urine Crystals None seen (None Seen) #/HPF Urine Bacteria Trace A (NONE SEEN) #/HPF Urine Casts Seen A (NONE SEEN) #/LPF Hyaline Casts Few Urine Mucus Small A (NONE SEEN) Ur Culture Indicated? No SARS-CoV-2 Ag (CV2AG) Positive A (NEGATIVE) Imaging Data Chest x-ray: Radiologist's impression: ITS Impressions Chest X-Ray 11/27/24 16:46 IMPRESSION: No acute cardiopulmonary pathology. Opacity is noted along the right infrahilar region consistent with the known right hilar and mediastinal mass. This is unchanged. Impression dictated by: Jose Antonio Lainez M.D. 11/27/2024 5:02 PM Dictation Location: [place] [address] Electronically authenticated by: [id number] Y Date: 11/27/2024 17:02 Discharge Plan Discharge Chief Complaint: Fever Clinical Impression: COVID-19 Patient Disposition: Home, Self-Care Time of Disposition Decision: 18:10 Condition: Good Mode of Transportation: Private Vehicle Prescriptions / Home Meds: No Action Mucinex DM 30-600 mg tablet extended release 12 hr 1 tab PO DAILY Multivitamin 50 Plus Tablet 1 tab PO DAILY acetaminophen [Tylenol] 325 mg tablet 650 mg PO Q6H PRN (Reason: pain) fluticasone propionate [24 Hour Allergy Relief] 50 mcg/actuation spray,suspension 1 spray intranasal DAILY PRN (Reason: nasal congestion) Rx Instructions: administer into each nostril metoprolol succinate 25 mg tablet extended release 24 hr 25 mg PO .QD benzonatate 200 mg capsule 200 mg PO DAILY PRN (Reason: cough) meclizine 25 mg tablet 25 mg PO TID Qty: 20 0RF Print Language: Kazakh Instructions: COVID-19 (Coronavirus Disease 2019) (ED) Referrals: CARLOS COLLINS [Primary Care Provider, [facility]] - 1 week
[2024-11-27 16:40] LABS: Basophils Absolute Auto 0.1 10^3/uL (0.0-0.1); Basophils Percent Auto 0.4 % (0.2-2.0); Eosinophils Absolute Auto 0.8 10^3/uL (0.0-0.7); Eosinophils Percent Auto 5.6 % (0.9-7.0); Hematocrit 35.3 % (42.0-54.0); Hemoglobin 11.2 g/dL (14.0-18.0); Immature Granulocytes Abs Auto 0.23 10^3/uL (0.00-0.03); Immature Granulocytes Pct Auto 1.6 % (0.0-0.5); Lymphocytes Absolute Auto 2.5 10^3/uL (1.2-3.8); Lymphocytes Percent Auto 17.3 % (20.5-60.0); Mean Corpuscular HGB Conc 31.7 g/dL (29.9-35.2); Mean Corpuscular Hemoglobin 27.7 pg (25.9-34.0); Mean Corpuscular Volume 87.4 fL (80.0-94.0); Mean Platelet Volume 9.5 fL (9.5-13.5); Monocytes Absolute Auto 1.4 10^3/uL (0.3-0.8); Monocytes Percent Auto 10.2 % (1.7-12.0); Neutrophils Absolute Auto 9.2 10^3/uL (1.4-6.5); Neutrophils Percent Auto 64.9 % (43.0-75.0); Platelet Count 285 10^3/uL (150-450); Red Blood Count 4.04 10^6/uL (4.70-6.10); Red Cell Distribution Width 15.5 % (11.0-15.0); White Blood Count 14.2 10^3/uL (4.0-11.0)
[2024-11-27 16:44] LABS: Bilirubin Urine NEGATIVE (NEGATIVE); Blood Urine NEGATIVE (NEGATIVE); Clarity Urine CLEAR (CLEAR); Color Urine YELLOW (YELLOW); Glucose Urine UA NEGATIVE (NEGATIVE); Ketones Urine NEGATIVE (NEGATIVE); Leukocyte Esterase Urine NEGATIVE (NEGATIVE); Nitrite Urine NEGATIVE (NEGATIVE); Protein Urine NEGATIVE (NEG/TRACE); Specific Gravity Urine >=1.030 (1.005-1.025); Urobilinogen Urine 0.2 EU/dL (0.2-1.0); pH Urine 5.5 (5.0-9.0)
--- NOTE | 2024-11-27 16:46 | XR_ITS ---
The [address] [address] Patient Name: JATIN KOCH MRN: [id number] date: 1960 Sex: M Assigned Patient Location: ER Current Patient Location: ER Accession/Order Number: [id number] Exam Date: 11/27/2024 16:56 Report Date: 11/27/2024 17:02 At the request of: HENRIK CISNEROS MD Procedure: XR chest 1V XR chest 1V 11/27/2024 4:46 PM SIGNS AND SYMPTOMS: ^Cough, fever, known history of lung cancer ^Y PROTOCOL: Frontal radiograph of the chest COMPARISON: 11/06/2024 FINDINGS: The trachea is midline. There is a dual lead pacer device on the left. Atherosclerotic changes are noted in the thoracic aorta. The heart and mediastinal structures are within normal limits. Opacity is noted along the right infrahilar region consistent with the known right hilar and mediastinal mass. This is unchanged. The bony thorax is intact. Degenerative changes are noted in the shoulders and thoracic spine. XR/XR chest 1V IMPRESSION: No acute cardiopulmonary pathology. Opacity is noted along the right infrahilar region consistent with the known right hilar and mediastinal mass. This is unchanged. Impression dictated by: Jose Antonio Lainez M.D. 11/27/2024 5:02 PM Dictation Location: [place] [address] Electronically authenticated by: [id number] Y Date: 11/27/2024 17:02
[2024-11-27 16:50] LABS: Bacteria Urine TRACE #/HPF (NONE SEEN); Cast Seen? SEEN #/LPF (NONE SEEN); Crystals Seen? None Seen #/HPF (None Seen); Hyaline Casts Urine FEW; Mucus Urine SMALL (NONE SEEN); RBC Urine NONE SEEN #/HPF (0-2); Squamous Epithelial Cell Urine FEW #/LPF (NONE/RARE); Urine Culture Indicated NO; WBC Urine NONE SEEN #/HPF (NONE SEEN)
[2024-11-27 16:52] LABS: Anion Gap 15.2; BUN Creatinine Ratio 27.3; Calcium 10.8 mg/dL (8.5-10.1); Carbon Dioxide 26.7 mmol/L (21.0-32.0); Chloride 98 mmol/L (98-107); Estimated GFR (African America >60 (>=60 mL/min/1.73m^2); Estimated GFR (Non-African Ame >60 (>=60 mL/min/1.73m^2); Glucose 102 mg/dL (74-106); Potassium 3.9 mmol/L (3.5-5.1); Sodium 136 mmol/L (136-145)
[2024-11-27 17:24] LABS: Internal Control Within Normal Limits
[2024-11-27 17:26] LABS: SARS-CoV-2 Ag POSITIVE (NEGATIVE)
== END 2024-11-27 18:28 | disposition home or self-care (01) ==
PROVIDERS: Emergency Provider Emergency Medicine; PCP Nurse Practitioner
DX: U07.1 COVID-19 (principal); C34.90 Malignant neoplasm of unspecified part of unspecified bronchus or lung; Z87.891 Personal history of nicotine dependence
CPT/HCPCS: 36415; 71045; 80048; 81001; 85025; 87040; 87811; 99285

== ENCOUNTER 2024-12-05 12:11 | Outpatient (OUT) | payer BC, SELFPAY ==
--- OUTSIDE RECORDS SUMMARY | 2024-10-25 04:30 | XMS_ITS ---
Author Organization [facility] in [place] Address [address] [place] [address] Care Team Providers Care Records Management Assistant Name Role Phone Brandi Fiore Primary Care Provider Alina Johnson [phone] REASON FOR VISIT -3 Month Follow Up- discuss depression and weight loss per Encounters Encounter Location Date Provider Diagnosis [address] [address] 10/25/2024 Alina Ragland Plan Of Treatment No Information Progress Notes * Frantz ROA IIDOB:[birth year] (64 yo M)Acc No.[id number]:10/25/2024 UNLOCKED PROGRESS NOTE Established Patient: Mike DAVILA Frantz Tubbs II Provider: Hugh Ragland MD :1960 A ge:63 Y S ex:Male Date:10/25/2024 Address:[address] [place] [address] Pcp:JOSTIN Garcia Subjective: * Chief Complaints: * 1 . -3 Month Follow Up- discuss depression and weight loss per . * Medical History: Objective: * Vitals: Assessment: Plan: * Treatment: * * Electronic signature of Eric Ragland MD, [id number] on 12/05/2024 at 12:15 PM EDT Sign off status: Pending Visit Status: C ANC (Cancelled) * Provider: Hugh Ragland MD Date: 0 10/25/2024 Generated for Marco renteria/Aicha/Ab on: 0 12/05/2024 12:15 PM EDT
--- OUTSIDE RECORDS SUMMARY | 2024-10-30 06:00 | XMS_ITS ---
Author Organization [facility] in [place] Address [address] [place] [address] Care Team Providers Care Cement Block Maker Name Role Phone Brandi Fiore Primary Care Provider Yordan Mclain Unavailable [phone] REASON FOR VISIT 2w F/U - Bronchoscopy Encounters Encounter Location Date Provider Diagnosis Pulmonary Medicine [place] [address] [place] [address] 10/30/2024 Yordan Feliciano Plan Of Treatment No Information Progress Notes * Frantz ORA IIDOB:[birth year] (64 yo M)Acc No.[id number]:10/30/2024 UNLOCKED PROGRESS NOTE Follow Up Patient: Mike DAVILA Frantz Tubbs II Provider: Akosua Feliciano DO :1960 A ge:63 Y S ex:Male Date:10/30/2024 Address:[address] [place], [place] [id number] Pcp:JOSTIN Garcia Subjective: * Chief Complaints: * 1 . 2w F/U - Bronchoscopy. * Medical History: Objective: * Vitals: Assessment: Plan: * Treatment: * * Electronic signature of Mignon Feliciano DO on 12/05/2024 at 12:16 PM EDT Sign off status: Pending Visit Status: R /S (Rescheduled) * Provider: Akosua Feliciano DO Date: 0 10/30/2024 Generated for Marco renteria/Aicha/Ab on: 0 12/05/2024 12:16 PM EDT
--- OUTSIDE RECORDS SUMMARY | 2024-11-07 09:00 | XMS_ITS ---
Author Organization [facility] in [place] Address [address] [place] [address] Care Team Providers Care Gear And Spline Grinder Name Role Phone Brandi Fiore Primary Care Provider Unavail able Yordan Feliciano Unavailable [phone] Allergies Allergen (clinical drug ingredient) Drug/Non Drug [...] Encounter Location Date Provider Diagnosis Pulmonary Medicine [address] [address] 11/07/2024 Yordan Feliciano Squamous cell carcinoma of [...] maintenance durvalumab. He has been referred to [facility] interventional pulmonology in an attempt to [...] maintenance durvalumab. He has been referred to [facility] interventional pulmonology in an attempt to [...] * Frantz ROA IIDOB:[birth year] (64 yo M)Acc No.[id number]:11/07/2024 Follow Up Patient: Mike Frantz DAVILA II Provider: Akosua Feliciano DO :1960 A ge:64 Y S ex:Male Date:11/07/2024 Address:[facility] [address] [id number] Pcp:JOSTIN Garcia Check In:12:54 PM ESTCheck O ut:02:02 PM EST Subjective: * Chief Complaints: * 2 w F/U - Hemoptysis * HPI: G eneral: Patient was admitted 11/03-11/06 for syncope, treated with postobstructive pneumonia and severe sepsis. He is feeling better today. Reviewed oncology note - saw Dr. Perez on 10/27/2024 who referred him to [facility] interventional pulmonology. Plans are for chemoradiation. MRI 2024 was negative for any brain mets. Breathing is okay today. MA Intake Comments:. Patient presents for a follow-up after being seen by [facility] Oncology. Patient reports being discharged from [facility] yesterday due to his breathing. Patient denies [...] iscellaneous: O ccupation O ccupation: R etired /[employer] Pets: Dog. D rugs/Alcohol: D rugs H [...] as needed Inhalation every 4 hrs Breztri Aerosphere(Bnhtplv-Ygggxfvxjbt-Iiifxusncr) 160-9-4.8 MCG/ACT Aerosol 2 puffs Inhalation Twice a day Not-Taking/PRN Albuterol Sulfate HFA 108 (90 Base) MCG/ACT Aerosol Solution 1 puff as needed Inhalation every 4 hrs Not-Taking/PRN Breztri Aerosphere(Lryfepa-Zejgkzflwwe-Vmobuiwyba) 160-9-4.8 MCG/ACT Aerosol 2 puffs Inhalation Twice [...] Education on smoking effects provided?11/07/2024 Former B [place] ACTION PLAN Above Normal BMI Follow-up D ietary management education, guidance, and counseling * Follow Up: P RN * * Sign off status: Completed Visit Status: C HK (Check Out) true * Provider: Akosua Feliciano DO Date: 0 11/07/2024 Generated for Marco renteria/Aicha/Maria Citting on: 0 12/05/2024 12:15 PM EDT History and Physical Notes * HPI (History of Present Illness) Category Sub-Category Detail Notes Category Not es General Patient present s for a follow-up after being seen by [facility]. Patient reports being discharged from [facility] yesterday due to his breathing. Patient denies any complaints with his breathing today. Patient was discharged home on Prednisone & Levaquin. Examination Category Sub-Category Detail Notes Category Not es Exam GENERAL APPEARANCE: Appears tired Skin Normal Mouth [place] and moist Trachea Midline Chest Normal Respiratory Normal Movements, Ef fort Normal Auscultation RLL diminished, lung s are clear of any wheezes, crackles, or rhonchi Cardiac Regular rate & rhyth m Gastrointestinal Normal Vascular No edema Musculoskeletal Normal posture Neurological Focal, intact Psychiatric Alert and oriented x 3 Mentation/Cognition Normal Oropharynx Mallampati Class III
--- OUTSIDE RECORDS SUMMARY | 2024-11-21 16:26 | XMS_ITS | Encounter Summary ---
Author Organization [facility] tem Address [id number] [address] [place] [address] Care Team Providers Care Materials Recycler Name Role Phone Jenny, BrandiJasmin MCLEAN-MAJOR GIFTS DIRECTOR Primary Care Provider [phone] Encounter Details Date Type Department Care Team (Latest Contact Info) Description 11/21/2024 4:26 PM EDT - 11/21/2024 11:59 PM EDT Hospital Encounter [facility] - Radiology [address] [place] [address] Rahul Kaplan MD [address] [place] [address] Pacemaker Discharge Disposition: Home Social History Tobacco Use Types Packs/Day Years Used Date Smoking Tobacco: Former Cigarettes Q uit: 01/04/2017 Smokeless Tobacco: Never Alcohol Use Standard Drinks/Week Comments Not Currently 0 (1 standard drink = 0.6 oz pur e alcohol) [facility] Utilities Answer Date Recorded In the past 12 months has [place], gas, oil, or water [email or web address] threatened to shut off services in your [...] on file documented as of this encounter Medications at Time of Discharge acetaminophen (TYLENOL EXTRA STRENGTH) 500 mg tablet Take 1 tablet (500 mg total) by mouth every 6 (six) hours as needed for pain. benzonatate (TESSALON PERLES) 200 mg capsule Take 1 capsule (200 mg total) by mouth 3 (three) times a day as needed for cough. meclizine (ANTIVERT) 25 mg tablet Chew 1 tablet (25 mg total) and swallow 3 (three) times a day as needed for dizziness. metoprolol succinate XL (TOPROL XL) 25 mg 24 hr tablet Take 1 tablet (25 mg total) by mouth in the morning. multivit-min/folic /vit K/lycop (MEN'S 50 PLUS MULTIVITAMIN ORAL) Take by mouth in the morning. cetirizine (ZyrTEC) 10 mg tablet Take 1 tablet (10 mg total) by mouth in the morning. levoFLOXacin (LEVAQUIN) 750 mg tablet Take 1 tablet (750 mg total) by mouth in the morning. predniSONE (DELTASONE) 10 mg tablet Take 1 tablet (10 mg total) by mouth in the morning. Tapered dose. 5 documented as of this encounter Plan of Treatment Upcoming Encounters Date Type Department Care Team (Late st Contact Info) Description 12/07/2024 2:30 PM EDT Clinical Support [facility] [address] [place] [phone] 12/07/2024 3:00 PM EDT Office Visit [facility] [address] [place] [phone] Bishop Milan APRN-MAJOR GIFTS DIRECTOR [address], [place] [id number] documented as of this encounter Goals Goal Patient Goal Type Associated Problems Recent Progress Patient-Stated? Author Discharge home General Yes Faye Chow RN Note: Evaluation of progress towards goal: Pt plans to return home self care with support. documented as of this encounter Procedures Procedure Name Priority Date/Time Associated Diagnosis Comments XR CHEST 2 VWS Routine 11/21/2024 4:28 PM EDT Pacemaker documented in this encounter Results * X-ray chest 2 views (11/21/2024 4:28 PM EDT) Anatomical Region Laterality Modality Body, Chest N/A Computed Radiogr aphy 11/21/2024 10:2 8 PM EDT Narrative 11/21/2024 10:29 PM EDT HISTORY: Pacemaker placement COMPARISON: Chest x-ray 11/09/2024 FINDINGS: PA and lateral views of the chest were obtained. Left-sided pacemaker with intact leads extending into the right atrium and right ventricle. Heart size is normal. No vascular congestion, significant airspace consolidation, pleural effusion or pneumothorax. IMPRESSION: * Left-sided pacemaker with intact leads terminating in the right atrium and right ventricle. * No acute cardiopulmonary process. Finalized by Logan Mccormick MD on 11/21/2024 10:29 PM Procedure Note Logan Mccormick MD - 11/21/2024 HISTORY: Pacemaker placement COMPARISON: Chest x-ray 11/09/2024 FINDINGS: PA and lateral views of the chest were obtained. Left-sidedpacemaker with intact leads extending into the right atrium and rightventricle. Heart size is normal. No vascular congestion, significantairspace consolidation, pleural effusion or pneumothorax. IMPRESSION: * Left-sided pacemaker with intact leads terminating in the right atriumand right ventricle. * No acute cardiopulmonary process. Finalized by Logan Mccormick MD on 11/21/2024 10:29 PM Rahul Kaplan MD IMG DIAGNOSTIC IMAGING ORDERABLE S Final Result documented in this encounter Visit Diagnoses Diagnosis Pacemaker Cardiac pacemaker in situ documented in this encounter Additional Health Concerns Assessment Noted Time PHQ-9 Depression Total Score: 0 11/10/19 25 11:28 AM EDT documented as of this encounter Care Teams Materials Recycler Relationship Specialty Start Date End Date Brandi Alvarado, FOURDRINIER TENDER-MAJOR GIFTS DIRECTOR [address] [place] [address] PCP - General Nurse Practitioner 11/08/24 documented as of this encounter
--- OUTSIDE RECORDS SUMMARY | 2024-11-22 13:00 | XMS_ITS | Encounter Summary ---
Author Organization [facility] tem Address [id number] [address] [place] [address] Care Team Providers Care Cork Sorter Name Role Phone Brandi Alvarado Janeth LINE WORKER-BUSINESS EDITOR Primary Care Provider [phone] Reason for Visit * Reason Comments Follow-up ov-wound ck-s/p imp 5- w/jzl-scheduled w/pt Encounter Details Date Type Department Care Team (Late st Contact Info) Description 11/22/2024 1:00 PM EDT [facility] [address] [place] [phone] Bishop Milan, LINE WORKER-BUSINESS EDITOR [address] [place], [place] [id number] AV block (Primary Dx); Squamous cell carcinoma of lung, unspecified laterality (CMS-HCC); Pacemaker Social History Tobacco Use Types Packs/Day Years Used Date Smoking Tobacco: Former Cigarettes Q uit: 01/04/2017 Smokeless Tobacco: Never Alcohol Use Standard Drinks/Week Comments Not Currently 0 (1 standard drink = 0.6 oz pur e alcohol) [facility] Utilities Answer Date Recorded In the past 12 months has [employer], gas, oil, or water company threatened to [...] Sign Reading Time Taken Comments Blood Pressure 108/50 11/22/2024 12:31 PM EDT Pulse 92 11/22/2024 12:31 PM EDT Temperature - - Respiratory Rate - - Oxygen Saturation 98% 11/22/2024 12:31 PM EDT Inhaled Oxygen Concentration - - Weight - - Height 172.7 cm (5' 8 ) 11/22/2024 12:31 PM EDT Body Mass Index - - documented in this encounter Progress Notes * Bishop Milan APRN-ABBEY - 11/22/2024 1:00 PM EDT Frantz Roa II Date of visit: 11/22/2024 Date of : 1960 Age: 64 y.o. Patient Active Problem List Diagnosis AV block BPH with urinary obstruction Arthritis Gout Squamous cell lung cancer (CMS-HCC) Syncope Allergies Allergen Reactions Bactrim [Sulfamethoxazole-Trimethoprim] Codeine diaphoresis Current Outpatient Medications Medication Sig Dispense Refill acetaminophen (TYLENOL EXTRA STRENGTH) 500 mg tablet Take 1 tablet (500 mg total) by mouth every 6 (six) hours as needed for pain. benzonatate (TESSALON PERLES) 200 mg capsule Take 1 capsule (200 mg total) by mouth 3 (three) timesa day as needed for cough. loratadine (CLARITIN REDITABS) 10 mg disintegrating tablet Dissolve 1 tablet (10 mg total) on tongue in the morning. meclizine (ANTIVERT) 25 mg tablet Chew 1 tablet (25 mg total) and swallow 3 (three) times a day as needed for dizziness. metoprolol succinate XL (TOPROL XL) 25 mg 24 hr tablet Take 1 tablet (25 mg total) by mouth in the morning. multivit-min/folic/vit K/lycop (MEN'S 50 PLUS MULTIVITAMIN ORAL) Take by mouth in the morning. NON FORMULARY Med Name: MARIMILTONA Immunity support bid No current facility-administered medications for this visit. Chief Complaint Patient presents with Follow-up ov-wound ck-s/p imp 11-09 w/jzl-scheduled w/pt History of Present Illness Frantz Roa II is here today with his spouse on initial wound check post pacemaker implant for intermittent symptomatic complete heart block. He was recently seen at [facility] warranting pacer implant. He was seen at [facility] due to recurrent syncope and EKG findings of intermittent complete heart block. Transferred to [facility] after evaluation at the [place] office. He is currently being treated for lung CA right lower lobe through [facility]. Also treated for hypertension. Device implant 11/09/2024 Dr. Veloz. He had had scheduled outpatient bronchoscopy through [facility] on the . His device was interrogated prior to the bronchoscopy noting elevated atrial thresholds. Completed a two-view x-ray yesterday. Reviewed with MD in office. Atrial lead inappropriate location. Patient reports he woke up this morning feeling ill including mild fever and flush like feeling. Device was interrogated in office today as well. Rare atrial pacing, RV pacing 6%, thresholds noting: Atrial threshold 3.1 at 0.4 millisecond, RV 1.3 at 0.4 millisecond No atrial fibrillation AMI at timing of bronchoscopy Intermittent heart block Advise him if he was any worse symptoms he should be evaluated in the ER. He lives in [place]. He is scheduled for device check again in a couple weeks. I will see him at that time Past Medical History: Diagnosis Date Arthritis Hypertension Lung cancer ([facility]-HCC) No data recorded No data recorded No data recorded Past Surgical History: Procedure Laterality Date EP Invasive DC PPM Left 11/09/2024 Performed by Robert Veloz MD at [facility] (EP) SKIN BIOPSY basal cell carcinoma removed from left christian TONSILLECTOMY TURP / TRANSURETHRAL INCISION / DRAINAGE PROSTATE 2019 TYMPANOSTOMY TUBE PLACEMENT Family History Problem Relation [...] Used Substance and Sexual Activity Alcohol use: Not Currently Drug use: No Sexual activity: Yes Other Topics Concern Caffeine Use No Social History Narrative Not on file Social Drivers of Health Financial Resource Strain: Not on file Food Insecurity: No Food Insecurity (11/09/2024) Hunger Screening Food Insecurity - Worry: Never True Food Insecurity - Inability: Never True Transportation Needs: No Transportation Needs (11/09/2024) PRAPARE - Transportation Lack of Transportation (Medical): No Lack of Transportation (Non-Medical): No Physical Activity: Not on file Stress: Not on file Social Connections: Not on file Interpersonal Safety: Not At Risk (11/09/2024) Humiliation, Afraid, Rape, and Kick questionnaire Fear of Current or Ex-Partner: No Emotionally Abused: No Physically Abused: No Sexually Abused: No Housing Instability: Low Risk (11/09/2024) Housing Instability Housing Instability: No Review of Systems Review of Systems Constitutional: Negative for malaise/fatigue. Cardiovascular: Negative for chest pain. Respiratory: Positive for shortness of breath. Negative for cough and wheezing. Hematologic/Lymphatic: Does not bruise/bleed easily. Skin: Positive for flushing. Musculoskeletal: Negative for joint pain, joint swelling, muscle cramps and muscle weakness. Gastrointestinal: Negative for heartburn, nausea and vomiting. Genitourinary: Negative for hematuria. Neurological: Positive for dizziness and headaches. Negative for light-headedness. Psychiatric/Behavioral: Negative for depression. The patient is not nervous/anxious. CARDIOVASCULAR: Please review HPI. Physical Examination General [...] mood, memory and judgement. VITAL SIGNS: BP 108/50 Pulse 92 Ht 172.7 cm (5' 8 ) SpO2 98% BMI 31.78 kg/m?? Orders Placed or Reconciled This Encounter Medications loratadine (CLARITIN REDITABS) 10 mg disintegrating tablet Sig: Dissolve 1 tablet (10 mg total) on tongue in the morning. NON FORMULARY Sig: Med Name: MARINGA Immunity support bid Medications Discontinued During This Encounter Medication Reason cetirizine (ZyrTEC) 10 mg tablet Therapy completed levoFLOXacin (LEVAQUIN) 750 mg tablet Therapy completed predniSONE (DELTASONE) 10 mg tablet Therapy completed IMPRESSIONS/PLAN 1. AV block 2. Squamous cell carcinoma of lung, unspecified laterality ([facility]-HCC) 1. Intermittent complete heart block symptomatic with syncopal episodes s/p [employer] dual-chamber pacemaker 11/09/2024. Elevated atrial threshold noted on device check through [facility] 11/20/2024. Repeat device check today:, x-ray completed yesterday with leads inappropriate positions. 2. Right lower lobe Ca. Bronchoscopy 11/20/2024. He woke up this morning feeling ill with low-gradefever. There was no abnormalities on his incisional check from pacemaker. Steri-Strips intact. No hematoma. Pending follow-up in a couple weeks for routine post pacer implant. I will have him see me again atthat time. He understands to report to the ER if he has any worsening symptoms as listed above. Discussed with Dr. Reyna in office TODAYS ORDERS No orders of the defined types were placed in this encounter. FOLLOW UP No follow-ups on file. PCP: CLINT PRINCE Referring Physician: Brandi Alvarado APRN-BUSINESS EDITOR [address] [place] [address] [place] [address] CLINT Chowdary 11/22/24 1403 documented in this encounter Plan of Treatment Upcoming Encounters Date Type Department Care Team (Late st Contact Info) Description 12/07/2024 2:30 PM EDT Clinical Support [facility] [address] [place] [phone] 12/07/2024 3:00 PM EDT Office Visit [facility] [address] [place] [phone] Bishop Milan APRN-CNP [address] [place] [address] documented as of this encounter Goals Goal Patient Goal Type Associated Problems Recent Progress Patient-Stated? Author Discharge home General Yes Faye Chow, RN Note: Evaluation of progress towards goal: Pt plans to return home self care with support. documented as of this encounter Visit Diagnoses Diagnosis AV block- Primary Unspecified atrioventricular block Squamous cell carcinoma of lung, unspecified laterality (CMS-HCC) Pacemaker Cardiac pacemaker in situ documented in this encounter Additional Health Concerns Assessment Noted Time PHQ-9 Depression Total Score: 0 11/10/19 25 11:28 AM EDT documented as of this encounter Care Teams Cork Sorter Relationship Specialty Start Date End Date Brandi Alvarado APRN-CNP [address] [place] [address] PCP - General Nurse Practitioner 11/08/24 documented as of this encounter
--- OUTSIDE RECORDS SUMMARY | 2024-11-22 13:00 | XMS_ITS | Encounter Summary ---
Author Organization [facility] tem Address [id number] [address] [place] [address] Care Team Providers Care Insulation Cutter Name Role Phone Brandi Alvarado APRN-CORPORATE SAFETY COORDINATOR Primary Care Provider [phone] Reason for Referral * Cardiology (Routine) - Pending Review Specialty Diagnoses / Procedures Referred By Contac t Referred To Contact Diagnoses Pacemaker Procedures Device Interrogation Reuben Reyna MD [address] [place] [address] Phone: tel: fax: Referral ID Status Reason Start Date Expiration Date V isits Requested Visits Authorized [id number] Pending Review 11/22/2024 11/22/2025 1 1 Reason for Visit * Reason Comments Device Check Encounter Details Date Type Department Care Team (Latest Contact Info) Description 11/22/2024 1:00 PM EDT Clinical Support [facility] [address] [place] [address] Pacemaker- [place] (Primary Dx) Social History Tobacco Use Types Packs/Day Years Used Date Smoking Tobacco: Former Cigarettes Q uit: 01/04/2017 Smokeless Tobacco: Never Alcohol Use Standard Drinks/Week Comments Not Currently 0 (1 standard drink = 0.6 oz pur e alcohol) [facility] Utilities Answer Date Recorded In the past 12 months has [employer], gas, oil, or water company threatened [...] as of this encounter Progress Notes * Reuben Reyna MD - 11/22/2024 1:00 PM EDT I agree with the findings in the scanned document. documented in this encounter Plan of Treatment Upcoming Encounters Date Type Department Care Team (Late st Contact Info) Description 12/07/2024 2:30 PM EDT Clinical Support [facility] [address] [place] [address] 12/07/2024 3:00 PM EDT Office Visit [facility] [address] [place] [address] Bishop Milan APRN-ABBEY [address] [place] [address] documented as of this encounter Goals Goal Patient Goal Type Associated Problems Recent Progress Patient-Stated? Author Discharge home General Yes Faye Chow, RN Note: Evaluation of progress towards goal: Pt plans to return home self care with support. documented as of this encounter Results * Device Interrogation (11/22/2024) Anatomical Region Laterality Modality Other Reuben Reyna MD [facility] ORDERABLES Final Result documented in this encounter Visit Diagnoses Diagnosis Pacemaker- [place]- Primary Cardiac pacemaker in situ documented in this encounter Additional Health Concerns Assessment Noted Time PHQ-9 Depression Total Score: 0 11/10/19 11:28 AM EDT documented as of this encounter Care Teams Insulation Cutter Relationship Specialty Start Date End Date Brandi Alvarado, SENIOR HUMAN RESOURCES REPRESENTATIVE-CORPORATE SAFETY COORDINATOR [address] [place] [address] PCP - General Nurse Practitioner 11/08/24 documented as of this encounter
--- OUTSIDE RECORDS SUMMARY | 2024-11-27 09:00 | XMS_ITS | Encounter Summary ---
Author Organization [facility] Address [address] [place], [place] [id number] Care Team Providers Care Programming Intern Name Role Phone Brandi Alvarado APRN.MICROBIOLOGY MANAGER Primary Care Provider [phone] Source Comments In the event this information is protected by the Federal Confidentiality of Alcohol and Drug AbusePatient Records regulations: The Federal rules restrict any use of the information to criminally investigate or prosecute any alcohol or drug abuse patient.[facility] Reason for Visit * Reason Comments First Time Treatment Education Encounter Details Date Type Department Care Team (Late st Contact Info) Description 11/27/2024 9:00 AM EDT Nurse Visit Hematology/Oncology [address] [place] [address] Blanquita Hargrove RN [address] [place] [address] Malignant neoplasm of lower lobe of right lung (HCC) (Primary Dx) Social History Tobacco Use Types Packs/Day Years Used Date Smoking Tobacco: Former Cigarettes S tarted: 2017 Passive Smoke Exposure: Past Smokeless Tobacco: Never Alcohol Use Standard Drinks/Week Comments Not Currently 0 (1 standard drink = 0.6 oz pur e alcohol) rarely PHQ-2 Answer Date Recorded PHQ-2 score 0 11/14/2024 Area Deprivation Index Answer Date Kenneth rded National Score (1-100), lower number is lower ri sk 93 11/15/2024 State Score (1-10), lower number is lower risk 9 11/15/2024 Data from: https://www.neighborhoodatlas.medicine.[facility]/. Last address used for calculation [address] 11/15/2024 Sex and Gender Information Value Date Recorded Sex Assigned at Not on file Legal Sex Male 8:04 AM EST Gender Identity Not on file Sexual Orientation Not on file documented as of this encounter Progress Notes * Blanquita Hargrove RN - 11/27/2024 10:19 AM EDT ONCOLOGY PATIENT EDUCATION NOTE TOPIC: Chemotherapy, Medications: taxol, carbo with radiation patient and spouse here today for education for treatment of Non-Small Cell Lung Cancer Anticipated/Scheduled start date: TBD pt will have SIM on Wednesday READINESS TO LEARN: COGNITIVE ABILITY: Alert and oriented MOTIVATION TO LEARN: Interested FAMILY SUPPORT: High - Very involved in pt care INSTRUCTION PROVIDED TO: Patient and Spouse INSTRUCTION PROVIDED BY: Nurse Coordinator and Pharmacist PATIENT LEARNS BEST BY: Multiple Methods FACTORS AFFECTING LEARNING: None PHYSICAL LIMITATIONS AFFECTING LEARNING: None LEARNING RESPONSE METHOD OF INSTRUCTION: Individual instruction Written instruction/Handouts Verbal instruction PATIENT/FAMILY RESPONSE: Verbalizes understanding of: CHEMOTHERAPY-Regimen, toxicity and side effects INFECTION MANAGEMENT-Signs and symptoms of an infection and importance of contacting the physician MEDICAL REGIMEN-Importance of following prescribed medical regimen MEDICATION PRESCRIBED-Accurate knowledge of prescribed medication prior to discharge MEDICATION ROUTE-Correct route for administration of the prescribed medication MEDICATION SIDE EFFECTS-Side effects associated with the medication that warrant a call to the physician PATIENT SAFETY PRINCIPLES SYMPTOM MANAGEMENT-Correct actions to take to manage symptoms associated with his/her disease/illness WORSENING CONDITION-Signs and symptoms of a worsening condition that warrant a call to the physician Information received as demonstrated by interest and questions FOLLOW UP PLAN: Patient instructed to call with any further issues Recommend - Recommend continued instruction and follow up as directed Follow up phone call. Contact information given. SUPPLEMENTAL MATERIAL: Written material was provided at this visit with the following information: - Chemotherapy education was provided by a pharmacist YES - Side effect management information was provided/discussed including but not limited to: abdominaldiscomfort, anemia, appetite changes, arthralgia, bowel habit changes, chest pain, diet, electrolyte disturbances, fatigue, hair loss, headache, hearing impairment, hypersensitivity reaction, infection, mouth hygiene, mucositis, myalgia, nausea/vomitting, neutropenia, peripheral neuropathy, rash, risk for DVT, shortness of breath, skin changes, taste changes, thrombocytopenia YES - Provided important phone numbers and contacts during and after hours. YES - Provided information on symptoms that require immediate assistance. YES - Provided Chemotherapy when to call handouts YES - Preventing infection. YES - Treatment schedule and confirmation of appointment times. YES - Available support groups. YES - The importance of contraception during the course of chemotherapy NA - Prescriptions for anti-emetics or treatment prep was given: Compazine and Zofran. YES - Neutropenic fever protocol discussed with patient, which included the importance of reporting anyfever of 100.4F (38.0C) or greater to the healthcare team as noted on the provided wallet card and/or magnet. YES - Cancer Wellness Program Pamphlet. YES - 4th Tom Information. YES - Patient services information. YES - Pt received My Journey binder in radiation last week. Pt had this with him today and his chemo edmaterial was added to this. Time Spent: 1 hour 10 minutes REFERRAL (RECOMMENDATION): pt aware of services we offer here at our office. Blanquita Hargrove, RN Multiple Pressure Riveter Operator Pre Chemo Patient identified by name and date of . YES Confirmed date and time for chemotherapy ? YES TBD Other appointments (labs, imaging) discussed? YES Discussed where to park (toilet and laundry soap supervisor), charge for parking NO Discussed where to report (building/floor) NO Any pre-medications ordered? NO Described the infusion room and what to expect. (What to wear, what to bring [iPad, books] amount of time treatment can take, meals and CC options for food) YES Note: concerned that pt continues to have fevers and sweats after being on doxycycline for 5 days for MRSA. Encouraged to call digital cartographic technician who pt is following for MRSA to see what their recommendations are. also questioning if pt should have his SIM done on Wednesday or not due to fevers. She will call radiation nurse after talking with pulmonology today. Discussed whether the patient can eat prior to labs and treatment. YES Who is driving you to and from treatment? Spouse Discussed why it is important to bring someone with you. No Resources discussed (music therapy, Art therapy, pet therapy, etc.) YES Education on chemotherapy (drug, side effects) discussed and that the patient will be receiving a C1D1 call within 7 days of treatment. YES Other topics discussed, interventions needed: concerned that pt has been having brain fog lately (for at least 3 weeks), doesn't remember things, feels dizzy and woozy at times, and has continued weakness and fatigue. Will send separate encounter to Dr Wilkerson regarding this. Blanquita Hargrove RN * Eloy Styles, [facility] - 11/27/2024 9:00 AM EDT Images from the original note were not included. [facility] Department of Pharmacy Oncology Pharmacy Medication Education Patient Name: Frantz Roa II Primary Oncologist: Ana Diagnosis: Lung cancer Frantz Roa II is a 64 year old patient and spouse here today for medication education for IV CARBOPLATIN and PACLITAXEL . Drug Interactions: Clinically significant interactions with chemotherapy, immunosuppression, or other standard of caretreatment plan medications anticipated: No. There are no pertinent drug interactions identified. Patient was counseled accordingly. Allergies: Patient confirmed allergies documented in Epic are correct: Yes Was medication education provided?: Yes Medication Education: Administration and schedule: AMB PACLITAXEL 50 CARBOPLATIN 2 D1,8,15,22,29,36 - Q42D PO chemo: Not applicable Was medication reconciliation performed?: Yes Changes made to medication list? Yes The following medications were updated within the home medication list: Medications ADDED to home medication list: Moringa leaf Soursop THC Medications UPDATED on home medication list: Acetaminophen Benzonatate Medications DISCONTINUED from home medication list: Cyclobenzaprine Meloxicam Diphenhydramine Levofloxacin prednisone Current Outpatient Medications Medication Sig prochlorperazine (COMPAZINE) 10 mg tablet Take 1 tablet by mouth every 6 hours as needed. ondansetron (ZOFRAN) 8 mg tablet Take 1 tablet by mouth every 8 hours as needed for nausea/vomiting. HERBAL DRUGS MISC 1 capsule once daily. Moringa/Soursop OTC PRODUCT THC 5mg TID - appetite, pain, energy doxycycline hyclate (VIBRAMYCIN) 100 mg capsule Take 1 capsule by mouth two times a day for 7 days. meclizine (ANTIVERT) 25 mg tab Take 25 mg by mouth three times a day as needed. fluticasone propionate (FLONASE NASAL) Use in the nose once daily. Acetaminophen 500 mg cap Take 1,000 mg by mouth four times a day as needed for pain. MEN'S MULTI-VITAMIN ORAL Take by mouth once daily. Benzonatate 200 mg capsule Take 200 mg by mouth three times a day as needed for cough. metoprolol succinate ER (TOPROL XL) 25 mg 24 hr tablet Take 25 mg by mouth. No current facility-administered medications for this visit. - Chemotherapy education was provided by a pharmacist YES Thank you for allowing us to participate in the care of this patient. I spent 15 time (15 minute increments) with the patient Eloy Styles RPh documented in this encounter Miscellaneous Notes * Addendum Note - Eloy Styles RPh - 11/27/2024 9:00 AM EDTAddended by: ELOY STYLES on: 11/27/2024 11:45 AM Modules accepted: Orders * Addendum Note - Eloy Styles RPh - 11/27/2024 9:00 AM EDTAddended by: ELOY STYLES on: 11/27/2024 11:58 AM Modules accepted: Orders documented in this encounter Plan of Treatment Upcoming Encounters Date Type Department Care Team (Late st Contact Info) Description 12/07/2024 8:15 AM EDT Appointment Radiology Pet CT [address] [place] [address] CT Head 12/08/2024 10:00 AM EDT Nurse Visit Radiation Oncology [address] [place] [address] Mae, Nurse Radt [address] [place] [address] IV start 12/08/2024 10:30 AM EDT Office Visit Radiation Oncology [address] [place] [address] Ezra Moreno MD [address] [place] [address] SIM Lung, IV contrast,esoph contrast, 4DCT, consent signed documented as of this encounter Visit Diagnoses Diagnosis Malignant neoplasm of lower lobe of right lung (HCC)- Primary documented in this encounter Care Teams Programming Intern Relationship Specialty Start Date End Date Brandi Alvarado, COGENERATION TECHNICIAN.MICROBIOLOGY MANAGER [address] [place] [id number] PCP - General Nurse Practitioner 10/27/24 documented as of this encounter
--- OUTSIDE RECORDS SUMMARY | 2024-12-05 12:15 | XMS_ITS | Encounter Summary ---
Author Organization [facility] Address [address] [place] [address] Care Team Providers Care Merchandising Coordinator Name Role Phone Brandi Alvarado APRN.CNP Primary Care Provider [phone] Blanquita Hargrove RN Unavailable [phone] Kvng Perez MD Unavailable [phone] Source Comments In the event this information is protected by the Federal Confidentiality of Alcohol and Drug AbusePatient Records regulations: The Federal rules restrict any use of the information to criminally investigate or prosecute any alcohol or drug abuse patient.[facility] Reason for Visit * Reason Comments Patient Update Future Appointment Encounter Details Date Type Department Care Team (Late st Contact Info) Description 11/28/2024 Telephone Radiation Oncology [address] [place] [address] [place] [address] Ezra Bowman MD [address] [place] [address] [place] [address] Patient Update; Future Appointment Social History Tobacco Use Types Packs/Day [...] is lower risk 9 11/15/2024 Data from: https://www.neighborhoodatlas.[facility]/. Last address used for calculation [address] 11/15/2024 Sex and Gender Information Value Date Recorded Sex Assigned at Not on file Legal Sex Male 8:04 AM EST Gender Identity Not on file Sexual Orientation Not on file documented as of this encounter Miscellaneous Notes * Telephone Encounter - Lauren Callejas - 11/28/2024 3:22 PM EDT IV start appointment has been added. I called and spoke to Gina Kim. I reminded her of the CT on 12/07/24. I confirmed his SIM arrival date and time on the . Lauren B PSS * Telephone Encounter - Macy Oviedo RN - 11/28/2024 3:13 PM EDT Please notify pt and adjust appts. Macy Oviedo RN * Telephone Encounter - Nancy De La Cruz RT(R) - 11/28/2024 2:20 PM EDT Sim rescheduled for 12/08/24 at 10:30 Will need nurse visit for IV start RT Mila(Mike)(T) * Telephone Encounter - Macy Oviedo RN - 11/28/2024 1:28 PM EDT Images from the original note were not included. Sharon Lou RN; Delvin, Blanquita G, RN1 minute ago (1:26 PM) AW I know he could come in with covid and we could get him started. I believe they've dropped covid protocols and we would ask him to wear a mask. Pt still has active high fevers though and does not fell well or up to coming in. That's why she was asking to reschedule. I saw a CT had been ordered and didn't know if that may change his planning process, so that's why I wanted to see with Dr Bowman if SIM was ok to be prior to that. Macy Oviedo, RN * Telephone Encounter - Lauren Callejas - 11/28/2024 11:56 AM EDT Nurse visit has been canceled Lauren Brownlee PSS * Telephone Encounter - Nancy De La Cruz RT(R) - 11/28/2024 11:52 AM EDT Sim cancelled for 11/30/24; will reschedule once notified when to re add PSS- please cancel nurse visit for 11/30 RT Mila(R)(T) * Telephone Encounter - Macy Oviedo RN - 11/28/2024 10:24 AM EDT PTs spouse called in to let us know Frantz has tested positive for covid. He went to ER last night due to persistent fever, diaphoreseis, chills and they tested him there. He is too late in symptoms for paxlovid, so they told them he has to tough it out. He is still running fevers and knows they'll need to reschedule the SIM this week. Spouse also requested that we let Kim Juares and Falguni (pharm student) know of this as he had his mask off during education. Dr Bowman- pt is scheduled for a CT on 12/07. Do you want to wait until after this to do SIM or should we just postpone sim approximately 1 week? Please advise. Macy Oviedo, RN documented in this encounter Plan of Treatment Upcoming Encounters Date Type Department Care Team (Late st Contact Info) Description 12/07/2024 8:15 AM EDT Appointment Radiology Pet CT [address] [place] [address] CT Head 12/08/2024 10:00 AM EDT Nurse Visit Radiation Oncology [address] [place] [address] [place] [address] Mae, Nurse Radt [address] [place] [address] [place] [address] IV start 12/08/2024 10:30 AM EDT Office Visit Radiation Oncology [address] [place] [address] [place] [address] Ezra Bowman MD [address] [place] [address] [place] [address] SIM Lung, IV contrast,esoph contrast, 4DCT, consent signed documented as of this encounter Visit Diagnoses Not on filedocumented in this encounter Care Teams Merchandising Coordinator Relationship Specialty Start Date End Date Brandi Alvarado, [employer]MENTAL METAL WORKER [address] [place] [address] PCP - General Nurse Practitioner 10/27/24 Blanquita Hargrove RN [address] [place] [address] [place] [address] Specialty Lance Crewmember/Mlrs Sergeant Hematology/Oncology 11/29/24 Kvng Perez MD [address] [place] [address] [place] [address] Physician Hematology/Oncology 11/29/24 documented as of this encounter
--- OUTSIDE RECORDS SUMMARY | 2024-12-05 12:15 | XMS_ITS | Patient Health Record ---
Author Organization [facility] [place] Address [address] [place] [address] Care Team Providers Care Lusterer Name Role Phone Brandi Fiore Primary Care Provider Unavail able José Luis Ragland Unavailable [phone] Chip Carbajal Unavailable [phone] Allergies Allergen (clinical drug ingredient) Drug/Non Drug Allergy documented on EMR Reaction Allergy Type Onset Date Status sulfamethoxazole / trimethoprim Bactrim fluid retention Drug Allergy Active codeine Codeine sweating Drug Allergy Active Results Component Value Reference Range Notes ECG 12 lead Reviewed date:10/16/2024 09:53:23 AM Interpretation: Performing Lab: Notes/Report: Source Facility: [place] [address] Electrocardiograph Report Signed Patient: FRANTZ ROA II MR#: [id number] : 1960 Acct:[id number] Age/Sex: 63 / M ADM Date: 10/12/24 Loc: PST Attending Dr: Chip Carbajal D.O. Ordering Physician: Chip Carbajal D.O. Date of Service: 10/12/24 Procedure(s): ECG 12 lead Accession Number(s): [id number] cc: [facility] Test Date: 2024-10-12 Pat Name: FRANTZ ROA Department: Room: - Gender: Male Planning Consultant: : 1960 Requested By: Chip Carbajal Order Number: [id number] Reading MD: AGATHA SALAZAR M.D. Measurements Intervals Galt Rate: 93 P: 32 GA: 168 QRS: 33 QRSD: 133 T: 5 [...] Signed By: 10/12/24 2329 DD/ 1257 TD/TT: Setter Off: [place] [address] Electrocardiograph Report Signed Patient: MICHAEL ROA II MR#: [id number] : 1960 Acct:[id number] Age/Sex: 63 / M ADM Date: 10/12/24 Loc: PST Attending Dr: Chip Carbajal D.O. Ordering Physician: Chip Carbajal D.O. Date of Service: 10/12/24 Procedure(s): ECG 12 lead Accession Number(s): [id number] cc: [facility] Test Date: 2024-10-12 Pat Name: FRANTZ DAVILA Department: 97 Room: - Gender: Male Planning Consultant: : 1960 Requ ested By: Chip Carbajal Order Number: [id number] Reading MD: AGATHA SALAZAR M.D. Measurements Intervals Galt Rate: 93 P: 32 GA: 168 QRS: 33 QRSD: 133 T: 5 [...] Signed By: 10/12/24 2329 DD/ 1257 TD/TT: Setter Off: LACTATE or LACTIC ACID Reviewed date:11/04/2024 11:42:44 AM Interpretation: Performing Lab: Notes/Report: Comment From ER blood please [facility] , Lactate/Lactic Acid 4.2 0.4-2.0 mmol/L RESULT S CALLED TO Billy Vásquez RN Performing Lab: see note [facility] LB LACTATE or LACTIC ACID Reviewed date:11/04/2024 11:42:44 AM Interpretation: Performing Lab: Notes/Report: [facility] , Lactate/Lactic Acid 2.1 0.4-2.0 mmol/L RESULT S CALLED TO billy vásquez rn Performing Lab: see note [facility] LB LACTATE or LACTIC ACID Reviewed date:11/06/2024 03:28:57 PM Interpretation: Performing Lab: Notes/Report: [facility] , Lactate/Lactic Acid 2.4 0.4-2.0 mmol/L RESULT S CALLED TO BILLY VÁSQUEZ RN Performing Lab: see note [facility] LB PET/CT Skull Base to Mid-Thi gh Reviewed date:10/23/2024 12:37:26 PM Interpretation: Performing Lab: Notes/Report: CT Chest w/o contrast Reviewed date:10/09/2024 09:52:28 AM Interpretation: Performing Lab: Notes/Report: Blood Culture 2 Reviewed date:11/09/2024 06:10:20 PM Interpretation: Performing Lab: Notes/Report: L AC [facility] , Blood Culture 2 See Below For Report NG5D NO GROWTH AT 5 DAYS.^NO GROWTH AT 5 DAYS. Blood Culture 2 Performing Lab: see note [facility] LB Blood Culture 1 Reviewed date:11/09/2024 06:10:20 PM Interpretation: Performing Lab: Notes/Report: [facility] , Blood Culture 1 See Below For Report Blood Culture 1 NG5D NO GROWTH AT 5 DAYS.^NO GROWTH AT 5 DAYS. Performing Lab: see note [facility] LB CT chest wo con Reviewed date:10/09/2024 06:58:44 AM Interpretation: Performing Lab: Notes/Report: Source Facility: [facility]-[address] [place] [address] CT Scan Report Signed Patient: FRANTZ ROA II MR#: [id number] : 1960 Acct:[id number] Age/Sex: 63 / M ADM Date: 10/06/24 Loc: CT Attending Dr: Chip Carbajal D.O. Ordering Physician: Chip Carbajal D.O. Date of Service: 10/06/24 Procedure(s): CT chest wo con Accession Number(s): [id number] cc: JOSÉ LUIS RAGLAND [place] [address] Patient Name: FRANTZ ROA MRN: [id number] date: 1960 Sex: M Assigned Patient Location: CT Current Patient Location: CT Accession/Order Number: [id number] Exam Date: 10/06/2024 10:28 Report Date: 10/06/2024 [...] Jr., D.O. 10/06/2024 10:33 AM Dictation Location: [place] [address] Electronically authenticated by: [id number] Y Date: 10/06/2024 10:33 Dictated By: Neftali Lewis M.D. Signed By: 10/06/24 1035 DD/ 1033 TD/TT: Setter Off: [place] [address] CT Scan Report Signed Patient: MICHAEL ROA II MR#: [id number] : 1960 Acct:[id number] Age/Sex: 63 / M ADM Date: 10/06/24 Loc: CT Attending Dr: Chip Carbajal D.O. Ordering Physician: Chip Carbajal D.O. Date of Service: 10/06/24 Procedure(s): CT mate[facility] wo con Accession Number(s): [id number] cc: JOSÉ LUIS RAGLAND [place] [address] Patient Name: FRANTZ ROA MRN: [id number] date: 1960 Sex: M Assigned Patient Loc ation: CT Current Patient Loca tion: CT Accession/Order Numb er: [id number] Exam Date: 10/06/2024 10:28 Report Date: 10/06/2024 [...] Jr., D.O. 10/06/2024 10:33 AM Dictation Location: [place] [address] Electronically authenticated by: [id number] Y Date: 10/06/2024 10:33 Dictated By: Neftali Lewis M.D. Signed By: 10/06/24 1035 DD/ 1033 TD/TT: Setter Off: MATHEW chest 2V Reviewed date:07/27/2024 09:45:36 AM Interpretation: Performing Lab: Notes/Report: Source Facility: [place] [address] [place] [address] XRay Report Signed Patient: FRANTZ ROA II MR#: [id number] : 1960 Acct:[id number] Age/Sex: 63 / M ADM Date: 06/22/24 Loc: RAD Attending Dr: JOSÉ LUIS RAGLAND Ordering Physician: JOSÉ LUIS RAGLAND Date of Service: 06/22/24 Procedure(s): XR chest 2V Accession Number(s): [id number] cc: JOSÉ LUIS RAGLAND [place] [address] Patient Name: FRANTZ ROA MRN: [id number] date: 1960 Sex: M Assigned Patient Location: RAD Current Patient Location: RAD Accession/Order Number: [id number] Exam Date: 06/22/2024 11:05 Report Date: 06/22/2024 [...] Signed By: 06/22/24 1250 DD/ 1248 TD/TT: Setter Off: [place] [address] XRay Report Signed Patient: MICHAEL ROA II MR#: [id number] : 1960 Acct:[id number] Age/Sex: 63 / M ADM Date: 06/22/24 Loc: RAD Attending Dr: RUDOLPH RAGLAND Ordering Physician: JOSÉ LUIS RAGLAND Date of Service: 06/22/24 Procedure(s): XR chest 2V Accession Number(s): [id number] cc: JOSÉ LUIS RAGLAND [place] [id number] Patient Name: FRANTZ ROA MRN: [id number] date: 1960 Sex: M Assigned Patient Loc ation: RAD Current Patient Loca tion: RAD Accession/Order Numb er: [id number] Exam Date: 06/22/2024 11:05 Report Date: 06/22/2024 [...] Signed By: 06/22/24 1250 DD/ 1248 TD/TT: Setter Off: XR chest 2V Reviewed date:11/06/2024 03:28:57 PM Interpretation: Performing Lab: Notes/Report: Source Facility: [place] [address] XRay Report Signed Patient: FRANTZ ROA II MR#: [id number] : 1960 Acct:[id number] Age/Sex: 64 / M ADM Date: 11/03/24 Loc: [place] 223-[address]: Ochoa Owens M.D. Ordering Physician: Mando Ward M.D. Date of Service: 11/06/24 Procedure(s): XR chest 2V Accession Number(s): [id number] cc: Mando Ward M.D.; BRANDI COLLINS [place] [id number] Patient Name: FRANTZ ROA MRN: [id number] date: 1960 Sex: M Assigned Patient Location: MS Current Patient Location: MS Accession/Order Number: [id number] Exam Date: 11/06/2024 12:21 Report Date: 11/06/2024 [...] Lainez M.D. 11/06/2024 12:22 PM Dictation Location: [place] [address] Electronically authenticated by: [id number] Y Date: 11/06/2024 12:22 Dictated By: Jose Antonio Lainez M.D. Signed By: 11/06/24 1225 DD/ 1222 TD/TT: Setter Off: [place] [address] XRay Report Signed Patient: MICHAEL ROA II MR#: [id number] : 1960 Acct:[id number] Age/Sex: 64 / M ADM Date: 11/03/24 Loc: [place] 223-[address]: Ochoa thakkar M.D. Ordering Physician: Mando Ward M.D. Date of Service: 11/06/24 Procedure(s): XR chest 2V Accession Number(s): [id number] cc: Mando Ward M.D. ; BRANDI COLLINS [place] [address] Patient Name: FRANTZ ROA MRN: [id number] date: 1960 Sex: M Assigned Patient Loc ation: MS Current Patient Loca tion: MS Accession/Order Numb er: [id number] Exam Date: 11/06/2024 12:21 Report Date: 11/06/2024 [...] Lainez M.D. 11/06/2024 12:22 PM Dictation Location: [place] [address] Electronically authenticated by: [id number] Y Date: 11/06/2024 12:22 Dictated By: Jose Antonio Lainez M.D. 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 [facility] states the patient has been contacted and [...] Administration Date Status Comme nts Flu, Flublok (83097) 18 yrs and older, single-dose syringe Unknown 03/31/2024 Administered Flu, Flublok (03162) 18yr+, single-dose (5497-1296) Unknown 03/16/2022 Administered Flu, Flublok (44248) 18yr+, single-dose (9147-4988) Unknown 04/21/2023 Administered Flu, Flucelvax (88850) 4 yrs and older, multi-dose vial (4434-8992) IM Intramuscular 04/02/2020 Administered Flu, Fluzone (53565) 6-35mo, multi-dose vial (7098-7807) Unknown 03/14/2017 Administered Flu, unspecified Unknown 04/07/2021 [...] Problem Status W/U Status Risk Notes Problem 419155405 Sleep disorder, unspecified (G47.9) Active confirmed Problem 51261467 Other chronic pain (G89.29) Active confirmed Problem Hypertension (59640570) HTN (hypertension) (I10) Active confirmed Problem 06204127 Essential hypertension (I10) Active confirmed Problem 891894694 BMI 33.0-33.9,adult (Z68.33) Active confirmed Problem Leukocytosis (024281871) Leukocytosis (D72.829) Active confirmed Problem Lung cancer, lower lobe (C34.30) Active confirmed Problem Ex-tobacco user (finding) (356044746) History of tobacco abuse (Z87.891) Active confirmed Problem History of influenza (503635972) History of influenza (Z87.09) Active confirmed Problem 625501564 Acute gout of left foot, unspecified cause (M10.9) Active confirmed Problem 546056310 Chronic gout without tophus, unspecified cause, unspecified site (M1A.9XX0) Active confirmed Problem 20075632 Kidney stone on right side (N20.0) Active confirmed Problem Primary malignant neoplasm of lung (13348532) 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) Active confirmed Problem History of COVID-19 (185511751686275 105) History of COVID-19 (Z86.16) Active confirmed Vital [...] N/A Encounters Encounter Location Date Provider Diagnosis [facility] [address] [place] [address] 02/17/2024 José Luis Ragland Other chronic pain G89.29 ; Essential hypertension I10 and Sleep disorder, unspecified G47.9 [facility] [address] [place] [address] 07/25/2024 José Luis Ragland Chronic cough R05.3 ; Essential hypertension I10 and Sleep disorder, unspecified G47.9 [facility] [address] [place] [address] 10/09/2024 Chip John Chronic cough R05.3 ; Right lower lobe lung mass R91.8 ; History of tobacco abuse Z87.891 ; History of COVID-19 Z86.16 and History of influenza Z87.09 [facility] [address] [place] [address] 10/23/2024 Chip Braden Squamous cell carcinoma of bronchus of right lung C34.91 ; Pneumonitis due to inhalation of food and vomit J69.0 and History of tobacco abuse Z87.891 [facility] [address] [place] [address] 11/07/2024 [facility] Squamous cell carcinoma of bronchus of right lung C34.91 and History of tobacco abuse Z87.891 [facility] [address] [place] [address] 09/25/2024 [facility] Chronic cough R05.3 ; History of tobacco abuse Z87.891 ; History of COVID-19 Z86.16 and History of influenza Z87.09 [facility] [address] [place] [address] 06/21/2024 José Luis Ragland Screening for colon cancer Z12.11 ; Encounter for general adult medical examination without abnormal findings Z00.00 ; Chronic cough R05.3 ; Essential hypertension I10 and Sleep disorder, unspecified G47.9 [facility] [address] [place] [address] 10/16/2024 [facility] [address] [place] [address] 09/21/2024 [facility] [address] [place] [address] 10/09/2024 [facility] [address] [place] [address] 10/11/2024 [facility] [address] [place] [address] 10/17/2024 [facility] [address] [place] [address] 10/23/2024 Chip [facility] [address] [place] [address] 01/18/2024 José Luis Ragland Other chronic pain G89.29 [facility] [address] [place] [address] 09/13/2024 José Luis Ragland Assessments Encounter Date Diagnosis (ICD Code) Assessment Notes Treatment Notes Treatment Clinical Notes Section Notes 02/17/2024 Other chronic pain (ICD-10 - G89.29) Stable, continue meloxicam daily and muscle relaxer as needed 02/17/2024 Essential hypertension (ICD-10 - I10) Continue current meds -will send refill of the metoprolol ER 50mg daily to [facility] 06/21/2024 Encounter for general adult medical examination without abnormal findings (ICD-10 - Z00.00) 07/25/2024 Essential hypertension (ICD-10 - I10) Stable, continue current meds 07/25/2024 Chronic cough (ICD-10 - R05.3) CXR was normal in June. Actually cough is improved since having covid! Will continue to monitor - if getting worse again, will try albuterol inhaler prn 09/25/2024 History of tobacco abuse (ICD-10 - Z87.891) 2ppd x 37 years, quit 12/2016 No LDCT at this time d/t w/up for chronic cough. 06/21/2024 Screening for colon cancer (ICD-10 - Z12.11) 09/25/2024 Chronic cough (ICD-10 - R05.3) Chronic [...] call 911/go to ER. He voiced understanding. 10/09/2024 Right lower lobe lung mass (ICD-10 [...] (or sooner) after bronchoscopy to review results. 10/23/2024 Squamous cell carcinoma of bronchus of [...] see if an internal referral to [facility] interventional pulmonology can be made. If not, I can place one. He continues to lose weight. He was 201.8# on 10/09/2024 - today (10/23/2024), he is 193.6#. There is significant mediastinal lymphadenopathy which appears to be compressing the mid-esophagus, leading to esophgaela dysphagia, limiting further his caloric intake. Discussed healthy diet, consider Ensure or Boost. He will benefit from a telecommunicator/dietic satish with oncological treatment. Will have him return in 2 weeks to see how the hemoptysis is going, as well as cough suppression. 11/07/2024 History of tobacco abuse (ICD-10 - Z87.891) 2ppd x 37 years, quit 12/201611/07/2024 Squamous cell carcinoma of bronchus of right [...] maintenance durvalumab. He has been referred to [facility] interventional pulmonology in an attempt to remove [...] Patient may return PRN at this point. 01/18/2024 Other chronic pain (ICD-10 - G89.29) 10/09/2024 Chronic cough (ICD-10 - R05.3) Chronic cough since June 2024. Lung mass contributing to cough. Breztri ineffective - explained it would not help with occlusion of RLL bronchus. Prednisone has helped. He can stop Breztri for now. Shifting treatment plan to w/up of RLL mass. 10/23/2024 Pneumonitis due to inhalation of food [...] - Z87.891) 2ppd x 37 years, quit 12/201606/21/2024 Chronic cough (ICD-10 - R05.3) Get CXR in the next few days and then will call with results - likely will start an inhaler. COPD? 07/25/2024 Sleep disorder, unspecified (ICD-10 - G47.9) Continue melatonin 09/25/2024 History of COVID-19 (ICD-10 - Z86.16) 02/17/2024 Sleep disorder, unspecified (ICD-10 - G47.9) Improved, continue melatonin 09/25/2024 History of influenza (ICD-10 - Z87.09) 06/21/2024 Essential hypertension (ICD-10 - I10) COntinue the metoprolol 10/09/2024 History of COVID-19 (ICD-10 - Z86.16) [...] ACCESS PPO PLUS LOCAL PLAN [address] [place] [address] [id number] Frantz Roa Self - patient is the insured Medical (General) History Medical History History ICD Code Gout M10.9 BPH (benign prostatic hyperplasia) N40.0 Nephrolithiasis N20.0 HTN (hypertension) I10 OA (osteoarthritis) M19.90 History of COVID-19 Z86.16 History of influenza Z87.09 History of tobacco abuse Z87.891 Squamous cell carcinoma of bronchus of r ight lung C34.91 Surgical History Surgery Date(Month/Year) Bronchoscopy 10/17/2024 TURP - Dr. Vásquez 05/17/19 Right carpal tunnel release - Dr. Hernandez ic 08/25/18 Left carpal tunnel release - Dr. Arriaza c 12/23/17 Cystoscope - Dr. Martinez 2015 T&A Hospitalization History Reason Date(Month/Year) Syncope-[facility] 11/03/2024 Lung mass/Hypoxia-[facility] 10/06/2024
--- OUTSIDE RECORDS SUMMARY | 2024-12-05 12:15 | XMS_ITS | Encounter Summary ---
Author Organization [facility] Address [address] [place] [address] Care Team Providers Care Blanching Machine Operator Name Role Phone Doug Bowles Michael Primary Care Provider + [phone] Brandi Alvarado APRN.[facility] Primary Care Provider [phone] Blanquita Hargrove RN Unavailable [phone] Kvng Perez MD Unavailable [phone] Source Comments In the event this information is protected by the Federal Confidentiality of Alcohol and Drug AbusePatient Records regulations: The Federal rules restrict any use of the information to criminally investigate or prosecute any alcohol or drug abuse patient.[facility] Reason for Visit * Reason Comments Results Dept. of Neurology R eport Encounter Details Date Type Department Care Team (Late st Contact Info) Description 03/25/2006 Abstract Neurology [address] [place] [address] Laith Norton MD [address] [place] [address] Results (Dept. of Neurology Report) [...] AM EDT Appointment Radiology Pet CT [address] [place] [address] CT Head 12/08/2024 10:00 AM EDT Nurse Visit Radiation Oncology [address] [place] [address] [place] [address] [place], Nurse Radt [address] [place] [address] [place] [address] IV start 12/08/2024 10:30 AM EDT Office Visit Radiation Oncology [address] [place] [address] [place] [address] Ezra Moreno MD [address] [place] [address] [place] [address] SIM Lung, IV contrast,esoph contrast, 4DCT, consent signed documented as of this encounter Visit Diagnoses Not on filedocumented in this encounter Care Teams Blanching Machine Operator Relationship Specialty Start Date End Date LawDoug caal PCP - General 02/23/06 10/26/24 Brandi Alvarado APRN.[employer] [address] [place] [address] PCP - General Nurse Practitioner 10/27/24 Blanquita Hargrove RN [address] [place] [address] Specialty Merchandise Marker Hematology/Oncology 11/29/24 Kvng Perez MD [address] [place] [address] Physician Hematology/Oncology 11/29/24 documented as of this encounter
--- OUTSIDE RECORDS SUMMARY | 2024-12-05 12:15 | XMS_ITS | Encounter Summary ---
Author Organization [facility] Address [address] [place] [address] Care Team Providers Care Hide Spreader Name Role Phone Brandi Alvarado APRN.[facility] Primary Care Provider [phone] Source Comments In the event this information is protected by the Federal Confidentiality of Alcohol and Drug AbusePatient Records regulations: The Federal rules restrict any use of the information to criminally investigate or prosecute any alcohol or drug abuse patient.[facility] Reason for Referral * MRI/CT (Routine) - Authorized Specialty Diagnoses / Procedures Referred By Contac t Referred To Contact CT IMAGING Diagnoses Malignant neoplasm of lower lobe of right lung (HCC) Procedures CT BRAIN WO IVCON CT HEAD/BRAIN W/O CONTRAST MATERIAL Kvng Perez MD [address] [place] [address] [place] [address] Phone: tel: fax: [place] [id number] Referral ID Status Reason Start Date Expiration Date Visits Requested Visits Authorized [id number] Authorized Auto-Generat ed Referral 11/28/2024 06/13/2025 1 1 Reason for Visit * Reason Comments Care Coordination Clinical update Encounter Details Date Type Department Care Team (Late st Contact Info) Description 11/27/2024 Telephone Hematology/Oncology [address] [place] [address] Blanquita Hargrove, RN [address] [place] [address] Care Coordination (Clinical update) Social History Tobacco Use Types Packs/Day Years [...] is lower risk 9 11/15/2024 Data from: https://www.neighborhoodatlas.medicine.[facility].edu/. Last address used for calculation [address] 11/15/2024 Sex and Gender Information Value Date Recorded Sex Assigned at Not on file Legal Sex Male 8:04 AM EST Gender Identity Not on file Sexual Orientation Not on file documented as of this encounter Miscellaneous Notes * Telephone Encounter - Lauren Callejas - 11/27/2024 11:52 AM EDT Called and spoke to Frantz and we scheduled him for a CT on 12/07/24 at 8:30 AM Lauren WILLIAMSON * Telephone Encounter - Blanquita Hargrove RN - 11/27/2024 11:03 AM EDT Please call pt's and schedule CT head ordered by Dr Wilkerson. Thanks Blanquita Hargrove, PRITI * Telephone Encounter - Kvng Perez MD - 11/27/2024 10:52 AM EDT I ordered a CT head. Thank you * Telephone Encounter - Blanquita Hargrove RN - 11/27/2024 10:32 AM EDT Pt is here for education today and is concerned that pt has been having brain fog lately (for at least 3 weeks), doesn't remember things, feels dizzy and woozy at times, and has continued weakness and fatigue. Pt is due for SIM on Wednesday. Had a brain MRI on 11/02 that was negative. Please advise Blanquita Hargrove RN documented in this encounter Plan of Treatment Upcoming Encounters Date Type Department Care Team (Late st Contact Info) Description 12/07/2024 8:15 AM EDT Appointment Radiology Pet CT [address] [place] [address] CT Head 12/08/2024 10:00 AM EDT Nurse Visit Radiation Oncology [address] [place] [address] [place] [address] Mae, Nurse Radt [address] [place] [address] IV start 12/08/2024 10:30 AM EDT Office Visit Radiation Oncology [address] [place] [address] [place] [address] Ezra Moreno MD [address] [place] [address] SIM Lung, IV contrast,esoph contrast, 4DCT, consent signed Scheduled Orders Name Type Priority Associated Diagnoses Orde r Schedule CT BRAIN WO IVCON Radiology Routine Malignant neoplasm of lower lobe of right lung (HCC) Expected: 12/04/2024 (Approximate), Expires: 12/27/2025 documented as of this encounter Visit Diagnoses Diagnosis Malignant neoplasm of lower lobe of right lung (HCC)- Primary documented in this encounter Care Teams Hide Spreader Relationship Specialty Start Date End Date Brandi Alvarado, STERILE PROCESSING TECHNICIAN.PETROLEUM TERMINAL PLANT OPERATOR [address] [place] [address] PCP - General Nurse Practitioner 10/27/24 documented as of this encounter
--- OUTSIDE RECORDS SUMMARY | 2024-12-05 12:15 | XMS_ITS | Encounter Summary ---
Author Organization [facility] Address [facility] [place] [address] Care Team Providers Care Tacking Stitch Remover Name Role Phone Brandi Alvarado APRN.[facility] Primary Care Provider [phone] Source Comments In the event this information is protected by the Federal Confidentiality of Alcohol and Drug AbusePatient Records regulations: The Federal rules restrict any use of the information to criminally investigate or prosecute any alcohol or drug abuse patient.[facility] Encounter Details Date Type Department Care Team (Late st Contact Info) Description 11/27/2024 Telephone Pulmonary Medicine [address] [place] [address] José Antonio Tapia MD [address] [place] [address] Social History Tobacco Use Types Packs/Day Years [...] (1-100), lower number is lower ri 93 11/15/2024 State Score (1-10), lower number is lower risk 9 11/15/2024 Data from: https://www.neighborhoodatlas.medicine.[facility].edu/. Last address used for calculation [address] 11/15/2024 Sex and Gender Information Value Date Recorded Sex Assigned at Not on file Legal Sex Male 8:04 AM EST Gender Identity Not on file Sexual Orientation Not on file documented as of this encounter Miscellaneous Notes * Telephone Encounter - José Antonio Tapia MD - 11/27/2024 6:00 PM EDT Recived outside call Eulalio Porras. Patient presented to [facility] ED w/ 5 days of fever. Positive for COVID19. Currently 95% on RA. Mild leukocytosis w/ WBC 14k w/ 65% neutrophils. CXR known lung mass, no new infiltrates. I agreed with no need for antibiotics. Discussed that patient may benefit from Paxlovid due to his current cancer risk and age. 5 days since symptoms so he is just on the edge if he may benefit. ER is differing for now as he looks well and is recovering. He has an appointment with hematology on 11/30 to start treatment, advised to call them tomorrow and reschedule hisappointment. documented in this encounter Plan of Treatment Upcoming Encounters Date Type Department Care Team (Late st Contact Info) Description 12/07/2024 8:15 AM EDT Appointment Radiology Pet CT [address] [place] [address] CT Head 12/08/2024 10:00 AM EDT Nurse Visit Radiation Oncology [address] [place] [address] Mae, Nurse Radt [address] [place] [address] IV start 12/08/2024 10:30 AM EDT Office Visit Radiation Oncology [address] [place] [address] Ezra Moreno MD [address] [place] [address] SIM Lung, IV contrast,esoph contrast, 4DCT, consent signed documented as of this encounter Visit Diagnoses Not on filedocumented in this encounter Care Teams Tacking Stitch Remover Relationship Specialty Start Date End Date Brandi Alvarado, TENNIS CAMP INSTRUCTOR.TRANSPORTATION AIDE [address] [place] [address] PCP - General Nurse Practitioner 10/27/24 documented as of this encounter
--- OUTSIDE RECORDS SUMMARY | 2024-12-05 12:15 | XMS_ITS | Encounter Summary ---
Author Organization [facility] Address [address] [place] [address] Care Team Providers Care Car Wash Attendant Name Role Phone Brandi Alvarado APRN.[facility] Primary Care Provider [phone] Source Comments In the event this information is protected by the Federal Confidentiality of Alcohol and Drug AbusePatient Records regulations: The Federal rules restrict any use of the information to criminally investigate or prosecute any alcohol or drug abuse patient.[facility] Reason for Visit * Reason Comments Bronchoscopy Referral Encounter Details Date Type Department Care Team (Late st Contact Info) Description 10/27/2024 Telephone Pulmonary Medicine [address] [place] [address] Janell An Bronchoscopy Referral Social History Tobacco Use Types Packs/Day Years Used Date Smoking Tobacco: Former Cigarettes S tarted: 2017 Passive Smoke Exposure: Past Smokeless Tobacco: Never Alcohol Use Standard Drinks/Week Comments Not Currently 0 (1 standard drink = 0.6 oz pur e alcohol) PHQ-2 Answer Date Recorded PHQ-2 score 0 11/14/2024 Area Deprivation Index Answer Date Kenneth rded National Score (1-100), lower number is lower ri sk 93 11/15/2024 State Score (1-10), lower number is lower risk 9 11/15/2024 Data from: https://www.neighborhoodatlas.[facility]/. Last address used for calculation [address] 11/15/2024 Sex and Gender Information Value Date Recorded Sex Assigned at Not on file Legal Sex Male 8:04 AM EST Gender Identity Not on file Sexual Orientation Not on file documented as of this encounter Miscellaneous Notes * Telephone Encounter - Janell An - 10/27/2024 10:19 AM EDT Referring Physician: Dr. Kvng Perez Address: [facility] Mae Phone #: [phone] Fax #: [phone] Reason for referral: Malignant neoplasm of lower lobe of right lung Is there CareEverywhere Records: Yes Is there Imaging available: Yes - Recent CT: Yes - Date of CT: 10/18/2024 documented in this encounter Plan of Treatment Upcoming Encounters Date Type Department Care Team (Late st Contact Info) Description 12/07/2024 8:15 AM EDT Appointment Radiology Pet CT [address] [place] [address] CT Head 12/08/2024 10:00 AM EDT Nurse Visit Radiation Oncology [address] [place] [address] Mae, Nurse Radt [address] [place] [address] IV start 12/08/2024 10:30 AM EDT Office Visit Radiation Oncology [address] [place] [address] Ezra Moreno MD [address] [place] [address] SIM Lung, IV contrast,esoph contrast, 4DCT, consent signed documented as of this encounter Visit Diagnoses Not on filedocumented in this encounter Care Teams Car Wash Attendant Relationship Specialty Start Date End Date Brandi Alvarado, GROUP BILLING COORDINATOR.REHABILITATION PROGRAM MANAGER [address] [place] [address] PCP - General Nurse Practitioner 10/27/24 documented as of this encounter
--- OUTSIDE RECORDS SUMMARY | 2024-12-05 12:15 | XMS_ITS | Encounter Summary ---
Author Organization [facility] Address [address] [place] [address] Care Team Providers Care Quality Assurance Associate Name Role Phone Brandi Alvarado APRN.[facility] Primary Care Provider [phone] Source Comments In the event this information is protected by the Federal Confidentiality of Alcohol and Drug AbusePatient Records regulations: The Federal rules restrict any use of the information to criminally investigate or prosecute any alcohol or drug abuse patient.[facility] Reason for Visit * Reason Comments Patient Update Encounter Details Date Type Department Care Team (Late st Contact Info) Description 11/27/2024 Telephone Pulmonary Medicine [address] [id number] Candice Garay (Pss) Patient Update Social History Tobacco Use Types Packs/Day Years [...] risk 9 11/15/2024 Data from: https://www.neighborhoodatlas.[facility]/. Last address used for calculation [address] 11/15/2024 Sex and Gender Information Value Date Recorded Sex Assigned at Not on file Legal Sex Male 8:04 AM EST Gender Identity Not on file Sexual Orientation Not on file documented as of this encounter Miscellaneous Notes * Telephone Encounter - Nancy Ferrer RN - 11/27/2024 1:43 PM EDT Spoke to patient's , Kim. Dr Robertson suggested patient go to the nearest emergency room to be evaluated for the fever, chills, & diaphoretic episodes. She is aware patient may need to get bloodwork / blood cultures drawn, and may need to be admitted for IV antibiotics. Kim is in agreement with this plan. 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 He is running fevers, getting chills,and diuretic episodes She stated the doxycyline is not working [phone] Kim documented in this encounter Plan of Treatment Upcoming Encounters Date Type Department Care Team (Late st Contact Info) Description 12/07/2024 8:15 AM EDT Appointment Radiology Pet CT [address] [facility] [place] [address] CT Head 12/08/2024 10:00 AM EDT Nurse Visit Radiation Oncology [address] [facility] [place] [address] Mae, Nurse Radt [address] [facility] [place] [address] IV start 12/08/2024 10:30 AM EDT Office Visit Radiation Oncology [address] [facility] [address] Ezra Moreno MD [address] [place] [address] [place] [address] SIM Lung, IV contrast,esoph contrast, 4DCT, consent signed documented as of this encounter Visit Diagnoses Not on filedocumented in this encounter Care Teams Quality Assurance Associate Relationship Specialty Start Date End Date Brandi Alvarado, PROOF OPERATOR.BOAT HOIST OPERATOR [address] [place], [place] [id number] PCP - General Nurse Practitioner 10/27/24 documented as of this encounter
--- OUTSIDE RECORDS SUMMARY | 2024-12-05 12:16 | XMS_ITS | Encounter Summary ---
Author Organization [employer] s tem Address [id number] [address] [place] [address] Care Team Providers Care Computer Networking Instructor Adjunct Name Role Phone Jenny, BrandiJasmin MCLEAN-PACKAGE LIFT OPERATOR Primary Care Provider [phone] Encounter Details Date Type Department Care Team (Late st Contact Info) Description 11/10/2024 [facility]phone [facility] [address] [place] [phone] Milla Metcalf Social History Tobacco Use Types Packs/Day Years Used Date Smoking Tobacco: Former Cigarettes Q uit: 01/04/2017 Smokeless Tobacco: Never Alcohol Use Standard Drinks/Week Comments Not Currently 0 (1 standard drink = 0.6 oz pur e alcohol) [facility] Utilities Answer Date Recorded In the past 12 months has th e [employer], gas, oil, or water company threatened to [...] - 11/10/2024 7:45 AM EDT Carla PERLA drawing tracer will call to schedule at MB documented in this encounter Plan of Treatment Upcoming Encounters Date Type Department Care Team (Late st Contact Info) Description 12/07/2024 2:30 PM EDT Clinical Support [facility] Cardiology [address] [place] [address] 12/07/2024 3:00 PM EDT Office Visit [facility] [address] [place] [address] Bishop Milan APRN-PACKAGE LIFT OPERATOR [address] [place] [address] documented as of this encounter Goals Goal [...] documented as of this encounter Care Teams Computer Networking Instructor Adjunct Relationship Specialty Start Date End Date Brandi Alvarado APRN-CNP [address] [place] [address] PCP - General Nurse Practitioner 11/08/24 documented as of this encounter
--- OUTSIDE RECORDS SUMMARY | 2024-12-05 12:16 | XMS_ITS ---
Author Organization [employer] Address [facility]-[id number] [address] 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 Past Treatment and Therapy Plans No past plan information found. Lifetime Dose Tracking * Chemical Lifetime Dose Automatic Entry Manual Entr y Fluoroscopy 28 mGy 0 mGy 28 mGy
--- OUTSIDE RECORDS SUMMARY | 2024-12-05 12:16 | XMS_ITS | Clinical Summary ---
Author Organization [facility] Address [address] [place] [address] Care Team Providers Care Pipe Smoking Machine Offbearer Name Role Phone Unavailable Primary Care Provider Unavailabl e Encounters Date Type Department Care Team Description 10/09/2024 Results Follow-Up [facility] [address] [place] [address] Marvel Shields PA 10/07/2024 Clinisync [...] ORDERABLES Final Re sult Performing Organization Address [facility] Co de Phone Number [facility] TB * BLOOD CULTURE 2 (10/06/2024 6:20 PM EDT) BLOOD CULTURE 2 Blood Culture 2 NG5D NO GROWTH AT 5 DAYS.^NO GROWTH AT 5 DAYS. [facility] 10/06/2024 6:20 PM EDT 10/06/2024 7:23 PM EDT Narrative CLINISYNC - 10/12/2024 3:25 PM EDT L AC Marvel [facility] LAB BLOOD ORDERABLES Final Re sult Performing Organization Address [facility] Co de Phone Number [facility] * BLOOD CULTURE 1 (10/06/2024 6:12 PM EDT) BLOOD CULTURE 1 Blood Culture 1 NG5D NO GROWTH AT 5 DAYS.^NO GROWTH AT 5 DAYS. [facility] 10/06/2024 6:12 PM EDT 10/06/2024 7:23 PM EDT Narrative CLINIS[facility] - 10/12/2024 3:25 PM EDT R AC us Marvel [facility] LAB BLOOD ORDERABLES Final Re sult [facility] from Last 3 Months Insurance [facility]
--- OUTSIDE RECORDS SUMMARY | 2024-12-05 12:16 | XMS_ITS | Encounter Summary ---
Author Organization [facility] [employer] [facility] Address [id number] [address] [place] [address] Care Team Providers Care Wireline Operator Name Role Phone Brandi Alvaardo Janeth MCLEAN-AFFIRMATIVE ACTION OFFICER Primary Care Provider [phone] Encounter Details Date Type Department Care Team (Late st Contact Info) Description 11/08/2024 Orders Only [facility] [address] [place] [phone] External, Scanning Provider Social History Tobacco Use Types Packs/Day Years Used Date Smoking Tobacco: Former Cigarettes Q uit: 01/04/2017 Smokeless Tobacco: Never Alcohol Use Standard Drinks/Week Comments Yes 0 (1 standard drink = 0.6 oz pur e alcohol) [facility] Utilities Answer Date Recorded In the [...] 11:28 AM Mary Ellen Astorga RN * Question [...] Baxter RN documented as of this encounter Plan of Treatment Upcoming Encounters Date Type Department Care Team (Late st Contact Info) Description 12/07/2024 2:30 PM EDT Clinical Support [facility] [address] [place] [address] 12/07/2024 3:00 PM EDT Office Visit [facility] [address] [place] [address] Bishop Milan, SALES SUPPORT ASSISTANT-AFFIRMATIVE ACTION OFFICER [address] [place] [address] documented as of this encounter Goals Goal [...] 3:45 PM EDT) us Scanning Provider External MA IMAGING Final Result MANUALLY TRANSCRIBED RESULTS * [...] Scanning Provider External ECG ORDERABLES Final Result MANUALLY TRANSCRIBED RESULTS * ECG 12 lead (2024 3:35 PM EDT) us Scanning Provider External ECG ORDERABLES Final Result Performing Organization Address [facility] Co de Phone Number MANUALLY TRANSCRIBED RESULTS documented in this encounter Visit Diagnoses Not on filedocumented in this encounter Additional Health Concerns Assessment Noted Time PHQ-9 Depression Total Score: 0 12/18/19 17 3:00 PM EDT documented as of this encounter Care Teams Wireline Operator Relationship Specialty Start Date End Date Brandi Alvarado APRN-AFFIRMATIVE ACTION OFFICER [address] [place] [address] PCP - General Nurse Practitioner 11/08/24 documented as of this encounter
--- OUTSIDE RECORDS SUMMARY | 2024-12-05 12:16 | XMS_ITS | Encounter Summary ---
Author Organization [facility] Address [facility][id number] [address] [place] [address] Care Team Providers Care Cook Supervisor Name Role Phone Jenny, BrandiJasmin MCLEAN-INCOME TAX ADJUSTER Primary Care Provider [phone] Encounter Details Date Type Department Care Team (Latest Contact Info) Description 11/21/2024 Travel Social History Tobacco Use Types Packs/Day Years Used Date Smoking Tobacco: Former Cigarettes Q uit: 01/04/2017 Smokeless Tobacco: Never Alcohol Use Standard Drinks/Week Comments Not Currently 0 (1 standard drink = 0.6 oz pur e alcohol) [facility] Utilities Answer Date Recorded In the past 12 months has [employer], gas, oil, or water [employer] threatened to shut off services in your [...] Clinical Support [facility] [address] [place] [phone] 12/07/2024 3:00 PM EDT Office Visit [facility] [address] [place] [address] Bishop Milan, HORIZONTAL BORING MILL OPERATOR-INCOME TAX ADJUSTER [address] [place] [address] documented as of this encounter Goals Goal [...] documented as of this encounter Care Teams Cook Supervisor Relationship Specialty Start Date End Date Brandi Alvarado, HORIZONTAL BORING MILL OPERATOR-INCOME TAX ADJUSTER [address] [place] [address] PCP - General Nurse Practitioner 11/08/24 documented as of this encounter
--- OUTSIDE RECORDS SUMMARY | 2024-12-05 12:16 | XMS_ITS | Encounter Summary ---
Author Organization [facility] Address [address] [place] [address] Care Team Providers Care Ventilating Equipment Installer Name Role Phone Unavailable Primary Care Provider Unavailabl e Encounter Details Date Type Department Care Team (Late st Contact Info) Description 10/09/2024 Results Follow-Up [facility] [address] [facility] [address] [place] [id number] Marvel Shields PA [address] [facility] [address] [place] [address] Social History Tobacco Use Types Packs/Day Years [...]
--- OUTSIDE RECORDS SUMMARY | 2024-12-05 12:16 | XMS_ITS | Encounter Summary ---
Author Organization [facility] tem Address [id number] [address] [place] [address] Care Team Providers Care Flat Grinder Operator Name Role Phone Brandi Alvarado Janeth MCLEAN-AESTHETICIAN Primary Care Provider [phone] Encounter Details Date Type Department Care Team (Late st Contact Info) Description 11/23/2024 Orders Only [facility] [address] [place] [phone] Reuben Reyna MD [address] [place] [address] [facility] Social History Tobacco Use Types Packs/Day Years Used Date Smoking Tobacco: Former Cigarettes Q uit: 01/04/2017 Smokeless Tobacco: Never Alcohol Use Standard Drinks/Week Comments Not Currently 0 (1 standard drink = 0.6 oz pur e alcohol) [facility] Utilities Answer Date Recorded In the past 12 months has e [employer], gas, oil, or water [employer] threatened to shut off services in your [...] Clinical Support [facility] [address] [place] [phone] 12/07/2024 3:00 PM EDT Office Visit [facility] [address] [place] [phone] Bishop [place], VINAY-AESTHETICIAN [address] [place] [address] documented as of this encounter Goals Goal Patient Goal Type Associated Problems Recent Progress Patient-Stated? Author Discharge home General Yes Faye Chow RN Note: Evaluation of progress towards goal: Pt plans to return home self care with support. documented as of this encounter Procedures Procedure Name Priority Date/Time Associated Diagnosis Comments DEVICE INTERROGATION Routine 11/22/2024 Pacemaker- [place] documented in this encounter Results * Device Interrogation (11/22/2024) Anatomical Region Laterality Modality Other us Reuben Reyna MD [facility] ORDERABLES Final Result documented in this encounter Visit Diagnoses Diagnosis Pacemaker- [place] Cardiac pacemaker in situ documented in this encounter Additional Health Concerns Assessment Noted Time PHQ-9 Depression Total Score: 0 11/10/19 11:28 AM EDT documented as of this encounter Care Teams Flat Grinder Operator Relationship Specialty Start Date End Date Brandi Alvarado, MANAGER TRANSFER-AESTHETICIAN [address] [place] [address] PCP - General Nurse Practitioner 11/08/24 documented as of this encounter
--- OUTSIDE RECORDS SUMMARY | 2024-12-05 12:16 | XMS_ITS | Encounter Summary ---
Author Organization [facility] tem Address [id number] [address] [place] [address] Care Team Providers Care Oil Field Pipeline Supervisor Name Role Phone Brandi Alvarado Janeth MCLEAN-DOOR CAPTAIN Primary Care Provider [phone] Reason for Visit * Reason Onset Date Comments Elevated RA Threshold 11/20/2024 Encounter Details Date Type Department Care Team (Late st Contact Info) Description 11/21/2024 Telephone [facility] [address] [place] [phone] Carolin Forrest RN Elevated RA Threshold Social History Tobacco Use Types Packs/Day Years Used Date Smoking Tobacco: Former Cigarettes Q uit: 01/04/2017 Smokeless Tobacco: Never Alcohol Use Standard Drinks/Week Comments Not Currently 0 (1 standard drink = 0.6 oz pur e alcohol) [facility] Utilities Answer Date Recorded In the past 12 months has [employer], gas, oil, or water company threatened to [...] encounter Miscellaneous Notes * Telephone Encounter - Carolin Forrest RN - 11/21/2024 9:15 AM EDT Patient has a dual PPM implanted by [facility] on 11/09/24. Wound check scheduled with SER on 11/22/24. First device check scheduled for 12/07/24. Received a call from [place] at the [facility]. Patient's device was checked while he was at [facility] for a Bronchoscopy. Device interrogation reveals elevated RA threshold at 4.5V @ 0.4ms. Outputs were reprogrammed to 5V @ 0.4ms. Full check scanned into media. Please advise while [facility] is on vacation. Thanks! * Telephone Encounter - Rahul Kaplan MD - 11/21/2024 9:15 AM EDT Will need a chest x-ray PA lateral to evaluate lead location. Might require lead revision. Please forward to Dr. Veloz for review. * Telephone Encounter - CLINT Chowdary - 11/21/2024 9:15 AM EDT Thanks * Telephone Encounter - Carolin Forrest RN - 11/21/2024 9:15 AM EDT Reviewed VG's recommendation with patient, agreeable to CXR. States he will try going to [facility] today after his gets home. Order placed. * Telephone Encounter - Robert Veloz MD - 11/21/2024 9:15 AM EDT CXR reviewed, does not appear to have significant RA lead positional change. Minimal RA pacing burden, device indication was for intermittent complete heart block. No urgent need for revision. documented in this encounter Plan of Treatment Upcoming Encounters Date Type Department Care Team (Late st Contact Info) Description 12/07/2024 2:30 PM EDT Clinical Support [facility] [address] [place] [phone] 12/07/2024 3:00 PM EDT Office Visit [facility] [address] [place] [phone] Bishop Milan APRN-CNP [address] [place] [address] documented as of this encounter Goals Goal Patient Goal Type Associated Problems Recent Progress Patient-Stated? Author Discharge home General Yes Faye Chow, PRITI Note: Evaluation of progress towards goal: Pt plans to return home self care with support. documented as of this encounter Results * X-ray chest 2 [...] in this encounter Visit Diagnoses Diagnosis Pacemaker- Primary Cardiac pacemaker in situ Pacemaker Cardiac pacemaker in situ documented in this encounter Additional Health Concerns Assessment Noted Time PHQ-9 Depression Total Score: 0 11/10/19 11:28 AM EDT documented as of this encounter Care Teams Oil Field Pipeline Supervisor Relationship Specialty Start Date End Date Brandi Alvarado, CONSULTING SERVICES PROJECT MANAGER-DOOR CAPTAIN [address] [place] [address] PCP - General Nurse Practitioner 11/08/24 documented as of this encounter
--- OUTSIDE RECORDS SUMMARY | 2024-12-05 12:17 | XMS_ITS ---
Author Organization [facility] Address [address] [place], [place] [id number] Care Team Providers Care Marketing Planner Name Role Phone Brandi Alvarado APRN.CNP Primary Care Provider [phone] Blanquita Hargrove RN Unavailable [phone] Kvng Perez MD Unavailable [phone] Active Problems Problem Noted Date Diagnosed Date Malignant neoplasm of lower lobe of right lung 0 11/17/2024 Calcifying tendinitis of shoulder 03/25/2006 Disorders of bursae and tend ons in shoulder region, unspecified 03/25/2006 Lesion of ulnar nerve 03/25/2006 Carpal tunnel syndrome 03/25/2006 Current Treatment and Therapy Plans AMB PACLITAXEL 50 CARBOPLATIN 2 D1,8,15,22,29,36 - Q42D* Plan Start Date: 11/27/2024 Plan Provider:Kvng Perez MD Linked Problems Malignant neoplasm of lower lobe of right lung (HCC) Treatment Medications Current Day (Day 1 , Cycle 1 - Planned for 11/27/2024) Next Day (Day 8, Cycle 1 - Planned for 12/04/2024) CARBOplatin iv piggyback (PARAPLATIN)PACLitaxel (TAXOL)palonosetron (ALOXI) CARBOplatin in NaCl 0.9% 100 mL (PARAPLATIN)PACLitaxel 100 mg in NaCl 0.9% 266.6667 mL (TAXOL)palonosetron 0.25 mg injection (ALOXI) CARBOplatin in NaCl 0.9% 100 mL (PARAPLATIN)PACLitaxel 100 mg in NaCl 0.9% 266.6667 mL (TAXOL)palonosetron 0.25 mg injection (ALOXI) Past Treatment and Therapy Plans No past plan information found.
--- OUTSIDE RECORDS SUMMARY | 2024-12-05 12:17 | XMS_ITS | Encounter Summary ---
Author Organization [facility] Address [address] [place] [id number] Care Team Providers Care Director Of Head Start Name Role Phone Brandi Alvarado APRN.[facility] Primary Care Provider [phone] Source Comments In the event this information is protected by the Federal Confidentiality of Alcohol and Drug AbusePatient Records regulations: The Federal rules restrict any use of the information to criminally investigate or prosecute any alcohol or drug abuse patient.[facility] Reason for Visit * Reason Comments Medication Request Encounter Details Date Type Department Care Team (Late st Contact Info) Description 11/23/2024 Telephone Pulmonary Medicine [address] [place] [address] Janell An Medication Request Social History Tobacco Use Types Packs/Day Years [...] is lower risk 9 11/15/2024 Data from: https://www.neighborhoodatlas.[facility]/. Last address used for calculation [address] 11/15/2024 Sex and Gender Information Value Date Recorded Sex Assigned at Not on file Legal Sex Male 8:04 AM EST Gender Identity Not on file Sexual Orientation Not on file documented as of this encounter Miscellaneous Notes * Telephone Encounter - Janell An - 11/23/2024 9:33 AM EDT Patient has a string cough but unable to cough up mucous. Patient would like saline for nebulizer sent to [facility] at [address] [place] [address] in [place] [address] documented in this encounter Plan of Treatment Upcoming Encounters Date Type Department Care Team ([facility] st Contact Info) Description 12/07/2024 8:15 AM EDT Appointment Radiology Pet CT [address] [place] [address] CT Head 12/08/2024 10:00 AM EDT Nurse Visit Radiation Oncology [address] [place] [address] [place] [address] Mae, Nurse Radt [address] [place] [address] IV start 12/08/2024 10:30 AM EDT Office Visit Radiation Oncology [address] [place] [address] [place] [address] Ezra Moreno MD [address] [place] [address] SIM Lung, IV contrast,esoph contrast, 4DCT, consent signed documented as of this encounter Visit Diagnoses Not on filedocumented in this encounter Care Teams Director Of Head Start Relationship Specialty Start Date End Date Brandi Alvarado, VINAY.CLINICAL THERAPIST [address] [place] [address] PCP - General Nurse Practitioner 10/27/24 documented as of this encounter
--- OUTSIDE RECORDS SUMMARY | 2024-12-05 12:17 | XMS_ITS | Clinical Summary ---
Author Organization My Ad Boxs tem Address [facility] [id number] [address] [place] [address] Care Team Providers Care Wrapper Sorter Name Role Phone Jenny Brandi Fowler APRN-WHEEL MOLDER Primary Care Provider [phone] Allergies Active Allergy Reactions Criticality Noted Date Comments Sulfamethoxazole-Trimethoprim 2016 Codeine diaphoresis 11/08/2024 Medications meclizine (ANTIVERT) 25 mg tablet Chew 1 tablet (25 mg total) and swallow 3 (three) times a day as needed for dizziness. Active benzonatate (TESSALON PERLES) 200 mg capsule Take 1 capsule (200 mg total) by mouth 3 (three) times a day as needed for cough. Active metoprolol succinate XL (TOPROL XL) 25 mg 24 hr tablet Take 1 tablet (25 mg total) by mouth in the morning. Active acetaminophen (TYLENOL EXTRA STRENGTH) 500 mg tablet Take 1 tablet (500 mg total) by mouth every 6 (six) hours as needed for pain. Active multivit-min/foli c/vit K/lycop (MEN'S 50 PLUS MULTIVITAMIN ORAL) Take by mouth in the morning. Active loratadine (CLARITIN REDITABS) 10 mg disintegrating tablet Dissolve 1 tablet (10 mg total) on tongue in the morning. Active NON FORMULARY Med Name: MARINGA Immunity support bid Active varenicline (CHANTIX CONTINUING MONTH BOX) 1 mg tablet Take 1 tablet (1 mg total) by mouth 2 (two) times a day. Take with full glass of water. 56 tablet 3 03/31/20 17 025 Discontinued PEPSIN/GA/OXBILE /PANCREAT/BET (SUBYWN-BCN-YZ CWDQ-LLK-PCP-PAP ORAL) Take by mouth. 025 Discontinued ibuprofen (ADVIL,MOTRIN) 200 mg tablet Take 200 mg by mouth every 6 (six) hours as needed for pain. 025 Discontinued tamsulosin (FLOMAX) 0.4 mg capsule,extended release 24hr Take 1 capsule (0.4 mg total) by mouth once daily for 90 days. 90 capsule 06/23/19 18 025 Discontinued levoFLOXacin (LEVAQUIN) 750 mg tablet Take 1 tablet (750 mg total) by mouth in the morning. 025 Discontinued(T herapy completed) predniSONE (DELTASONE) 10 mg tablet Take 1 tablet (10 mg total) by mouth in the morning. Tapered dose. 025 Discontinued(T herapy completed) cyclobenzaprine (FLEXERIL) 10 mg tablet Take 1 tablet (10 mg total) by mouth once daily at bedtime. 025 Discontinued(S top Taking at Discharge) meloxicam (MOBIC) 7.5 mg tablet Take 1 tablet (7.5 mg total) by mouth in the morning. 025 Discontinued(S top Taking at Discharge) cetirizine (ZyrTEC) 10 mg tablet Take 1 tablet (10 mg total) by mouth in the morning. 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 Arthritis 11/09/2024 Gout 11/09/2024 Squamous cell lung cancer 11/09/2024 Encounters Date Type Department Care Team Description 11/23/2024 Orders Only [facility] [address] [place] [phone] Reuben Reyna MD Pacemaker- Vida 11/22/2024 1:00 PM EDT Clinical Support [facility] [address] [place] [phone] Pacemaker- Vida (Primary Dx) 11/22/2024 1:00 PM EDT Office Visit [facility] [address] [place] [address] Bishop Milan, CIRCUS RIDER-WHEEL MOLDER AV block (Primary Dx); Squamous cell carcinoma of lung, unspecified laterality (CMS-HCC); Pacemaker 11/21/2024 4:26 PM EDT - 11/21/2024 11:59 PM EDT Hospital Encounter [facility] - Radiology [address] [place] [phone] Rahul Kaplan MD Pacemaker Discharge Disposition: Home 11/21/2024 Travel 11/21/2024 Telephone [facility] [address] [place] [phone] Carolin Forrest, PRITI Elevated RA Threshold 11/17/2024 Telephone [facility] [address] [place] [phone] Josseline Stewart RN Planning radiation treatments to lung 11/15/2024 Abstract [facility] [address] [place] [phone] Bishop Milan, CIRCUS RIDER-WHEEL MOLDER 11/10/2024 [facility] [address] [place] [phone] Milla Metcalf 11/09/2024 1:30 PM EDT - 11/09/2024 3:00 PM EDT Surgery [facility] [address] [place] [phone] Robert Veloz MD EP Invasive DC PPM 11/09/2024 12:47 AM EDT - 11/09/2024 6:16 PM EDT Hospital Encounter [facility] - GEN 2 Acute [address] [place] [phone] Colby Johnson MD Discharge Disposition: Home 11/08/2024 4:07 PM EDT - 11/08/2024 11:52 PM EDT Emergency [facility] - Emergency [address] [place] [phone] Sean Hayes MD Symptomatic bradycardia (Primary Dx) Discharge Disposition: [facility] 11/08/2024 2:30 PM EDT Office Visit [facility] [address] [place] [address] Maritza Best MD Syncope, unspecified syncope type (Primary Dx) 11/08/2024 Orders Only [facility] [address] [place] [address] External, Scanning Provider 11/08/2024 Travel 11/07/2024 Telephone [facility] [address] [place] [address] Victoria Collado CMA 11/03/2024 12:10 AM EDT Ancillary Procedure [facility] [address] [place] [phone] Pain 10/06/2024 8:05 PM EDT Ancillary Procedure [facility] [address] [place] [phone] Pain 10/06/2024 9:45 AM EDT Ancillary Procedure [facility] [address] [place] [phone] Pain from Last 3 Months Immunizations Immunization Administration [...] 0.6 oz pur e alcohol) [facility] Utilities Answer Date Recorded In the past 12 months has [employer], oil, or water company threatened to shut [...] Pulse 92 11/22/2024 12:31 PM EDT Temperature 37.3 C (99.1 F) 11/09/2024 4:36 PM EDT Respiratory Rate 20 11/09/2024 4:36 PM EDT Oxygen Saturation 98% 11/22/2024 12: 31 PM EDT Inhaled Oxygen Concentration - - Weight 94.8 kg (208 lb 15.9 oz) 11/09/2024 7:30 AM EDT Height 172.7 cm (5' 8 ) 11/22/2024 12:3 1 PM EDT Body Mass Index 31.78 11/09/2024 7:30 AM EDT Plan of Treatment Upcoming Encounters Date Type Department Care Team (Late st Contact Info) Description 12/07/2024 2:30 PM EDT Clinical Support [facility] [address] [place] [phone] 12/07/2024 3:00 PM EDT Office Visit [facility] [address] [place] [address] Bishop Milan, VINAY-WHEEL MOLDER [address] [place] [address] Health Maintenance Due Date Last Done Comments Adult BMI Follow Up Plan 11/03/1979 DTaP,Tdap and Td Vaccines (1 - Tdap) 1980 Zoster (Shingles) Vaccine (1 of 2) 1980 COVID-19 Vaccine (4 - Mixed Product risk season) 2024 03/31/2024, 09/25/2020, 08/28/2020 Influenza Vaccine 02/12/2025 03/31/2024, , 03/16/2022, Additional history exists Adult BMI Screening 11/09/2025 11/09/2024 Depression Screening 11/09/2025 11/09/2024 Tobacco Screening 11/22/2025 11/22/2024 Goals Goal Patient Goal Type Associated Problems Recent Progress Patient-Stated? Author Discharge home General Yes Faye Chow, RN Note: Evaluation of progress towards goal: Pt plans to return home self care with support. Medical Devices Implanted Type Area Concrete Fence Builder Device Identifier Shelf Expiration Date Model / Serial / Lot Lead Pcng 52cm Atr Vntrc Ingevity+ Xtd Rtrct Fx Is-1 [facility] - [id number] - [id number] Implanted:Qt y: 1 on 11/09/2024 by Robert Veloz MD at [facility] Implant Lead Left: Chest [employer]/CRM [id number] 05/24/2026 [id number] / [id number] / Lead Pcng 59cm Atr Vntrc Ingevity+ Xtd Rtrct Fx Is-1 Cnct - [id number] - [id number] Implanted:Qt y: 1 on 11/09/2024 by Roebrt Veloz MD at [facility] Implant Lead Left: Chest [employer]/CRM [id number] 07/27/2026 [id number] / [id number] / Pacemaker .75cm Acld Mri El 2 Chmbr Is-1 Cnct Avinash Mntr 4.45 - [id number] - [id number] Implanted:Qt y: 1 on 11/09/2024 by Robert Veloz MD at [facility] Pacemaker Left: Chest [employer]/CRM [id number] 08/16/2026 [id number] / [id number] / Procedures Procedure Name Priority Date/Time Associated Diagnosis Comments DEVICE INTERROGATION Routine 11/22/2024 Pacemaker- Vida IN CLINIC DEVICE CHECK Routine 11/21/2024 11:00 PM EDT XR CHEST 2 VWS Routine 11/21/2024 4:28 PM EDT Pacemaker XR CHEST 2 VWS Routine 11/09/2024 3:40 [...] ECG 12-LEAD Routine 11/03/2024 3:[address] CTA CHEST Routine 11/03/2024 12:10 AM EDT Pain ECG 12-LEAD Routine 2024 3:[address] CTA CHEST Routine 10/06/2024 8:[address] CHEST WO CONT Routine 10/06/2024 9:45 AM EDT Pain from Last 3 Months Results * Device Interrogation (11/22/2024) Anatomical Region Laterality Modality Other us Reuben Reyna MD CV CARDIAC SERVICES ORDERABLES Final Result * In Clinic Device Check (11/21/2024 11:00 PM EDT) Anatomical Region Laterality Modality Other 11/21/2024 11:0 0 PM EDT us Reuben Reyna MD HEALTH MAINTENANCE Final Result * X-ray chest 2 views (11/21/2024 4:28 PM EDT) Only the most recent of3 [...] Logan Mccormick MD on 11/21/2024 10:29 PM us Rahul Kaplan MD IMG DIAGNOSTIC IMAGING ORDERABLE S Final Result * EP INVASIVE (11/09/2024 2:10 PM EDT) Narrative PAPA - 11/09/2024 2:12 PM EDT Successful implantation of a dual chamber permanent pacemaker Procedure Details PROCEDURE: PERMANENT PACEMAKER IMPLANT IMPLANTED DEVICE INFORMATION: [employer] pulse generator, model L311, serial number [id number] at the L prepectoral site. Atrial lead 7841, 52 cm, serial number [id number]. Right ventricular lead 7842, 59 cm, serial number [id number]. ATTENDING PROVIDER: Robert Veloz MD/SABA, [facility] MODERATE SEDATION FOR PROCEDURE: Moderate sedation [...] check. Robert Veloz MD/SABA, FACC, RS Cardiac Director [facility] us Robert Veloz [...] proximal 13 cm XCELERA Left Ventricle Mass 188.63708 [id number] 4 g XCELERA Interventricular Septum Diastolic Thickness [...] ventricular wall motion is normal. Sofiya Eisenberg CIRCUS RIDER-WHEEL MOLDER CV ECHO ORDERABLES nal Result * (ABNORMAL) Procalcitonin (11/09/2024 2:41 AM EDT) PROCALCITONIN 0.08(H) <0.05 ng/mL 11/09/2024 3:31 AM EDT [facility] Blood 11/09/2024 2:41 AM EDT 11/09/2024 2:41 AM EDT [facility] - 11/09/2024 3:31 AM EDT <0.50 ng/mL - Low risk of severe sepsis and/or septic shock. <2.00 ng/mL - Recommend retesting within 6-24 hours. >2.00 ng/mL - High risk of sepsis and/or septic shock. [employer] CIRCUS RIDERLandingi LAB BLOOD ORDERABLES Final Result [facility] [address] [place] [address], * Lactate w/ Reflex (11/09/2024 2:41 AM EDT) Pathologist [facility] LACTATE W/REFLEX 1.1 0.4 - 2.0 mmol/L 11/09/2024 4:26 AM EDT [facility] Blood Venous blood / Unknown 11/09/2024 2:41 AM EDT 11/09/2024 2:41 AM EDT Narrative [facility] - 11/09/2024 4:26 AM EDT Result did not trigger repeat Lactate, re-order if needed. [facility] LAB BLOOD ORDERABLES Final Result Performing Organization Address City/[facility]/ZIP Co de Phone Number [facility] [address] [place] [address], [place] [phone] * (ABNORMAL) CBC auto differential (11/09/2024 2:41 AM EDT) Only the most recent of2 resultswithin the time period is included. WBC 15.7(H) 4 - 11 x10E9/L 11/09/2024 3:57 AM EDT [facility] RBC Count 4.25 4.1 - 5.7 X10E12/L 11/09/2024 3:57 AM EDT [facility] Hemoglobin 11.7(L) 13 - 17 g/dL 11/09/2024 3:57 AM EDT [facility] Hematocrit 35.1(L) 39 - 50 % 11/09/2024 3:57 AM EDT [facility] MCV 83 80 - 100 fL 11/09/2024 3:57 AM EDT [facility] MCH 27.6 27 - 34 pg 11/09/2024 3:57 AM EDT [facility] MCHC 33.4 32 - 36 g/dL 11/09/2024 3:57 AM EDT [facility] RDW 16.5(H) 11.5 - 15 % 11/09/2024 3:57 AM EDT [facility] Platelet Count 254 150 - 450 X10E9/L 11/09/2024 3:57 AM EDT [facility] MPV 6.9(L) 7 - 12 fL 11/09/2024 3:57 AM EDT [facility] Myelocyte % 1 % 11/09/2024 3:57 AM EDT [facility] Comment:This is an appended report. These results have been appended to a previously preliminary verified report. Metamyelocytes % 2 % 11/10/19 25 3:57 AM EDT [facility] Comment:This is an appended report. These results have been appended to a previously preliminary verified report. Neutrophils % 73 % 11/09/2024 3:57 AM EDT [facility] Comment:This is an appended report. These results have been appended to a previously preliminary verified report. Lymphocytes % 11 % 11/09/2024 3:57 AM EDT [facility] Comment:This is an appended report. These results have been appended to a previously preliminary verified report. Monocytes % 11 % 11/09/2024 3:57 AM EDT [facility] Comment:This is an appended report. These results have been appended to a previously preliminary verified report. Eosinophils % 1 % 11/09/2024 3:57 AM EDT [facility] Comment:This is an appended report. These results have been appended to a previously preliminary verified report. Neutrophils Absolute (M) 11.5(H) 1.5 - 6.6 10*3/uL 11/09/2024 3:57 AM EDT [facility] Comment:This is an appended report. These results have been appended to a previously preliminary verified report. Lymphocytes Absolute 1.8 1.0 - 3.5 10*3/uL 11/09/2024 3:57 AM EDT [facility] Comment:This is an appended report. These results have been appended to a previously preliminary verified report. Monocytes Absolute 1.8(H) 0.0 - 0.9 10*3/uL 11/09/2024 3:57 AM EDT [facility] Comment:This is an appended report. These results have been appended to a previously preliminary verified report. Eosinophils Absolute 0.2 0.0 - 0.4 10*3/uL 11/09/2024 3:57 AM EDT [facility] Comment:This is an appended report. These results have been appended to a previously preliminary verified report. RBC Morphology Normal 11/09/2024 3:57 AM EDT [facility] Comment:This is an appended report. These results have been appended to a previously preliminary verified report. Differential Type CELLAVISION DIFFERENTIAL 11/09/2024 3:57 AM EDT [facility] Comment:This is an appended report. These results have been appended to a previously preliminary verified report. Blood 11/09/2024 2:41 AM EDT 11/09/2024 2:41 AM EDT Lauren Guardado CIRCUS RIDER-WHEEL MOLDER LAB BLOOD ORDERABLES Final Result [facility] [address] [place] [address], [place] [phone] * (ABNORMAL) Comprehensive metabolic panel (11/09/2024 2:41 AM EDT) Only the most recent of2 resultswithin the time period is included. SODIUM 138 134 - 146 mmol/L 11/09/2024 3:28 AM EDT [facility] POTASSIUM 4.2 3.5 - 5.0 mmol/L 11/09/2024 3:28 AM EDT [facility] CHLORIDE 100 98 - 109 mmol/L 11/09/2024 3:28 AM EDT [facility] CARBON DIOXIDE 28 22 - 32 mmol/L 11/09/2024 3:28 AM EDT [facility] ANION GAP 10 5 - 15 mmol/L 11/09/2024 3:28 AM T [facility] BLOOD UREA NITROGEN 25 5 - 27 mg/dL 11/09/2024 3:28 AM EDT [facility] CREATININE 0.65 0.60 - 1.30 mg/dL 11/09/2024 3:28 AM T [facility] Comment:METHOD TRACEABLE TO [facility] STANDARD GLUCOSE 104(H) 65 - 99 mg/dL 11/09/2024 3:28 AM EDT [facility] CALCIUM 8.6 8.5 - 10.5 mg/dL 11/09/2024 3:28 AM T [facility] TOTAL PROTEIN 5.8(L) 6.0 - 8.0 g/dL 11/09/2024 3:28 AM T [facility] ALBUMIN 3.4 3.2 - 5.3 g/dL 11/09/2024 3:28 AM T [facility] ALKALINE PHOSPHATASE 53 39 - 130 U/L 11/09/2024 3:28 AM T [facility] AST 13 <=41 U/L 11/09/2024 3:28 AM T [facility] ALT 26 <=40 U/L 11/09/2024 3:28 AM T [facility] BILIRUBIN,TOTAL 0.4 0.3 - 1.2 mg/dL 11/09/2024 3:28 AM T [facility] EGFR Non-Race Dependent >90 >=60 ml/min/1.7 3sq.m 11/09/2024 3:28 AM T [facility] Comment: Reported eGFR is based on the CKD-EPI 2020 equation that does not use a race coefficient. Blood 11/09/2024 2:41 AM EDT 11/09/2024 2:41 AM EDT Lauren Guardado CIRCUS RIDER-WHEEL MOLDER LAB BLOOD ORDERABLES Final Result [facility] [address] [place] [address], [place] [phone] * Troponin I, High Sensitivity 1 Hour (11/08/2024 5:32 PM EDT) TROPONIN I, HIGH SENSITIVITY 4 <21 ng/L 11/08/2024 6:19 PM EDT [facility] Blood Venous blood / Unknown 11/08/2024 5:32 PM EDT 11/08/2024 5:46 PM EDT us Sean Hayes MD LAB BLOOD ORDERABLES Final Resu lt [facility] [address] [place] [address], [place] * X-ray chest 1 view (11/08/2024 [...] 4 <21 ng/L 11/08/2024 4:58 PM EDT [facility] Blood Venous blood / Unknown 11/08/2024 4:24 PM EDT 11/08/2024 4:29 PM EDT us Sean Hayes MD LAB BLOOD ORDERABLES Final Resu lt Performing Organization Address [facility] Co de Phone Number [address] [place] [address], [place] * Thyroid profile includes TSH FT4 (11/08/2024 4:24 PM EDT) FREE T4 0.88 0.61 - 1.60 ng/dL 11/08/2024 5:09 PM EDT [facility] TSH 0.66 0.49 - 4.67 uIU/mL 11/08/2024 5:09 PM EDT [facility] Blood Venous blood / Unknown 11/08/2024 4:24 PM EDT 11/08/2024 4:29 PM EDT us Sean Hayes MD LAB BLOOD ORDERABLES Final Resu lt Performing Organization Address [facility] Co de Phone Number [address] [place] [address], [place] * (ABNORMAL) APTT (11/08/2024 4:24 PM EDT) APTT 25(L) 26 - 37 sec 11/08/2024 4:42 PM EDT [facility] Blood Venous blood / Unknown 11/08/2024 4:24 PM EDT 11/08/2024 4:29 PM EDT us Sean Hayes MD LAB BLOOD ORDERABLES Final Resu lt Performing Organization Address [facility]/ZIP Co de Phone Number [address] [place] [address], [place] * Protime & INR (11/08/2024 4:24 PM EDT) PROTIME 12.4 9.8 - 13.2 sec 11/08/2024 4:42 PM EDT [facility] INR 1.1 0.9 - 1.2 11/08/2024 4:42 PM EDT [facility] Blood Venous blood / Unknown 11/08/2024 4:24 PM EDT 11/08/2024 4:29 PM EDT us Sean Hayes MD LAB BLOOD ORDERABLES Final Resu lt Performing Organization Address [facility] Co de Phone Number [address] [place] [address], [place] * D-Dimer (11/08/2024 4:24 PM EDT) D DIMER 175 1 - 255 ug/mL 11/08/2024 4:42 PM EDT [facility] Comment:Results <255 ng/mL D DU: The presensence [...] MD LAB BLOOD ORDERABLES Final Resu lt [address] [place] [address], [place] * B-type natriuretic peptide (11/08/2024 4:24 PM EDT) BNP 64 <=100 pg/mL 11/08/2024 4:58 PM EDT [facility] Blood Venous blood / Unknown 11/08/2024 4:24 PM EDT 11/08/2024 4:29 PM EDT us Sean Hayes MD LAB BLOOD ORDERABLES Final Resu lt Performing Organization Address [facility] de Phone Number [address] [place] [address], [place] * Magnesium (11/08/2024 4:24 PM EDT) MAGNESIUM 2.1 1.8 - 2.6 mg/dL 11/08/2024 4:49 PM EDT [facility] Blood Venous blood / Unknown 11/08/2024 4:24 PM EDT 11/08/2024 4:29 PM EDT us Sean Hayes MD LAB BLOOD ORDERABLES Final Resu lt Performing Organization Address [facility] Co de Phone Number [address] [place] [address], [place] * ECG 12 lead (11/08/2024 4:18 PM EDT) Only the most recent of3 resultswithin the time period is included. 11/08/2024 4:18 PM EDT Narrative [facility] - 11/08/2024 6:45 PM EDT us Sean Hayes MD ECG ORDERABLES Final Result Performing Organization Address City/[facility]/ZIP Co de Phone Number [facility] * POCT EKG (11/08/2024) us Maritza Best MD ECG ORDERABLES Final Res ult MANUALLY TRANSCRIBED RESULTS * Multiple labs (11/06/2024 3:45 PM EDT) us Scanning Provider External [place] IMAGING Final Result Performing Organization Address City/[facility]/ZIP Co de Phone Number MANUALLY TRANSCRIBED RESULTS * CT angiogram chest (11/03/2024 12:10 AM EDT) Only the most recent of2 resultswithin the time period is included. us Scanning Provider External IMG CT ORDERABLES Fin al Result * CT chest without contrast (10/06/2024 9:45 AM EDT) us Scanning Provider External IMG CT ORDERABLES Fin al Result from Last 3 Months Insurance ANTH Advance Directives * Full Code (Latest Code Status on File) Date Activated Date Inactivated Comments 11/09/2024 1:06 AM 11/09/2024 8:22 PM Care Teams Wrapper Sorter Relationship Specialty Start Date End Date Brandi Alvarado APRN-WHEEL MOLDER [address] [place] [address] PCP - General Nurse Practitioner 11/08/24
--- OUTSIDE RECORDS SUMMARY | 2024-12-05 12:17 | XMS_ITS | Encounter Summary ---
Author Organization [facility] Address [facility] [place] [address] Care Team Providers Care Web Designer Name Role Phone Jenny Brandi Fowler APRN.[facility] Primary Care Provider [phone] Source Comments In the event this information is protected by the Federal Confidentiality of Alcohol and Drug AbusePatient Records regulations: The Federal rules restrict any use of the information to criminally investigate or prosecute any alcohol or drug abuse patient.[facility] Encounter Details Date Type Department Care Team (Late st Contact Info) Description 11/23/2024 Orders Only Pulmonary Medicine [address] [place] [id number] [place] [address] [place] [address] Social History Tobacco Use Types Packs/Day [...] is lower risk 9 11/15/2024 Data from: https://www.neighborhoodatlas.medicine.[employer] [facility].edu/. Last address used for calculation [address] [...] AM EDT Appointment Radiology Pet CT [address] [place] [address] CT Head 12/08/2024 10:00 AM EDT Nurse Visit Radiation Oncology [address] [place] [address] [place] [address] Mae, Nurse Radt [address] [place] [address] [place] [address] IV start 12/08/2024 10:30 AM EDT Office Visit Radiation Oncology [address] [place] [address] [place] [address] Ezra Moreno MD [address] [place] [address] SIM Lung, IV contrast,esoph contrast, 4DCT, consent signed documented as of this encounter Visit Diagnoses Not on filedocumented in this encounter Care Teams Web Designer Relationship Specialty Start Date End Date Brandi Alvarado, HVAC COMMERCIAL SALESPERSON.BEAUTY SHOP MANAGER [address] [place] [address] PCP - General Nurse Practitioner 10/27/24 documented as of this encounter
--- OUTSIDE RECORDS SUMMARY | 2024-12-05 12:17 | XMS_ITS | Encounter Summary ---
Author Organization [facility] Address [address] [place] [address] Care Team Providers Care Supervisor Shop Name Role Phone Brandi Alvarado APRN.CREATIVE SERVICES DIRECTOR Primary Care Provider [phone] Blanquita Hargrove RN Unavailable [phone] Kvng Perez MD Unavailable [phone] Source Comments In the event this information is protected by the Federal Confidentiality of Alcohol and Drug AbusePatient Records regulations: The Federal rules restrict any use of the information to criminally investigate or prosecute any alcohol or drug abuse patient.[facility] Reason for Visit * Reason Comments Patient Update Encounter Details Date Type Department Care Team (Late st Contact Info) Description 11/17/2024 Telephone Radiation Oncology [address] [place] [address] [place] [address] Ezra Moreno MD [address] [place] [address] [place] [address] Patient Update Social History Tobacco Use Types [...] is lower risk 9 11/15/2024 Data from: https://www.neighborhoodatlas.medicine.[facility]/. Last address used for calculation [address] 11/15/2024 Sex and Gender Information Value Date Recorded Sex Assigned at Not on file Legal Sex Male 8:04 AM EST Gender Identity Not on file Sexual Orientation Not on file documented as of this encounter Miscellaneous Notes * Telephone Encounter - Cassia Cantu RN - 11/17/2024 1:33 PM EDT I called [facility] pacemaker clinic to verify if Frantz is pacemaker dependent or not. Josseline, in the device clinic, said his pacemaker was just placed 11/09/24 and his first device check is scheduled for 12/07/24. [facility] device clinic phone # [phone]. Thanks Cassia Cantu RN documented in this encounter Plan of Treatment Upcoming Encounters Date Type Department Care Team (Late st Contact Info) Description 12/07/2024 8:15 AM EDT Appointment Radiology Pet CT [address] [facility] [place] [address] CT Head 12/08/2024 10:00 AM EDT Nurse Visit Radiation Oncology [address] [facility] [place] [address] Radha Nurse Radt [address] [facility] [place] [address] IV start 12/08/2024 10:30 AM EDT Office Visit Radiation Oncology [address] [facility] [place] [address] Ezra Moreno MD [address] [facility] [place] [address] SIM Lung, IV contrast,esoph contrast, 4DCT, consent signed documented as of this encounter Visit Diagnoses Not on filedocumented in this encounter Care Teams Supervisor Shop Relationship Specialty Start Date End Date Brandi Alvarado, HAND SCUDDER.CREATIVE SERVICES DIRECTOR [address] [place] [address] PCP - General Nurse Practitioner 10/27/24 Blanquita Hargrove RN [address] [facility] [place] [address] Specialty Automatic Die Cutting Machine Operator Hematology/Oncology 11/29/24 Kvng Perez MD [address] [facility] [place] [address] Physician Hematology/Oncology 11/29/24 documented as of this encounter
--- OUTSIDE RECORDS SUMMARY | 2024-12-05 12:17 | XMS_ITS | Encounter Summary ---
Author Organization [facility] Address [address] [place] [address] Care Team Providers Care [employer] Special Education Teacher Name Role Phone Jenny Brandi Fowler APRN.[facility] Primary Care Provider [phone] Source Comments In the event this information is protected by the Federal Confidentiality of Alcohol and Drug AbusePatient Records regulations: The Federal rules restrict any use of the information to criminally investigate or prosecute any alcohol or drug abuse patient.[facility] Encounter Details Date Type Department Care Team (Late st Contact Info) Description 11/23/2024 Results Follow-Up Pulmonary Medicine [address] [place] [id number] [place] [address] [place] [address] Social History Tobacco Use Types Packs/Day [...] is lower risk 9 11/15/2024 Data from: https://www.neighborhoodatlas.medicine.[facility].edu/. Last address used for calculation [address] 11/15/2024 Sex and Gender Information Value Date Recorded Sex Assigned at Not on file Legal Sex Male 8:04 AM EST Gender Identity Not on file Sexual Orientation Not on file documented as of this encounter Miscellaneous Notes * Result Encounter Note - Alexandre Robertson MD - 11/23/2024 7:57 AM EDT Called patient, no answer, so I called Kim, his whom he has given permission to speak about his health. I explained the finding of some MRSA from culture. He had been on Augmentin and Levofloxacin prior to bronch, but now that we have specific identified micro, we will treat based on sensitivity because he did have some mucopurulent secretion the other day while he gets started on chemo radiation. I sent doxycycline to pharmacy of their choice, explained to take with some food/ snack andlight sensitivity. All questions answered. documented in this encounter Plan of Treatment Upcoming Encounters Date Type Department Care Team (Late st Contact Info) Description 12/07/2024 8:15 AM EDT Appointment Radiology Pet CT [address] [place] [address] CT Head 12/08/2024 10:00 AM EDT Nurse Visit Radiation Oncology [address] [place] [address] [place] [address] Mae, Nurse Radt [address] [place] [address] [place] [address] IV start 12/08/2024 10:30 AM EDT Office Visit Radiation Oncology [address] [place] [address] [place] [address] Ezra Moreno MD [address] [place] [address] [place] [address] SIM Lung, IV contrast,esoph contrast, 4DCT, consent signed documented as of this encounter Visit Diagnoses Not on filedocumented in this encounter Care Teams [employer] Special Education Teacher Relationship Specialty Start Date End Date Brandi Alvarado, CODING SPECIALIST.SENIOR COMPLIANCE OFFICER [address] [place] [address] PCP - General Nurse Practitioner 10/27/24 documented as of this encounter
--- OUTSIDE RECORDS SUMMARY | 2024-12-05 12:17 | XMS_ITS | Encounter Summary ---
Author Organization [facility] Address [facility] [place] [address] Care Team Providers Care Schedule Announcer Name Role Phone Jenny Brandi Fowler APRN.CAUSTIC STRENGTH INSPECTOR Primary Care Provider [phone] Source Comments In the event this information is protected by the Federal Confidentiality of Alcohol and Drug AbusePatient Records regulations: The Federal rules restrict any use of the information to criminally investigate or prosecute any alcohol or drug abuse patient.[facility] Encounter Details Date Type Department Care Team (Late st Contact Info) Description 11/23/2024 Orders Only Pulmonary Medicine [address] [place] [id number] [place] [address] [place] [address] Pneumonia of right lower lobe due to methicillin resistant Staphylococcus aureus (MRSA) (HCC) (Primary Dx) Social History Tobacco Use [...] is lower risk 9 11/15/2024 Data from: https://www.neighborhoodatlas.medicine.[facility].edu/. Last address [...] AM EDT Appointment Radiology Pet CT [address] [facility] [address] CT Head 12/08/2024 10:00 AM EDT Nurse Visit Radiation Oncology [address] [place] [address] [place] [address] Mae, Nurse Radt [address] [place] [address] [place] [address] IV start 12/08/2024 10:30 AM EDT Office Visit Radiation Oncology [address] [place] [address] [place] [address] Ezra Moreno MD [address] [place] [address] [place] [address] SIM Lung, IV contrast,esoph contrast, 4DCT, consent signed documented as of this encounter Visit Diagnoses Diagnosis Pneumonia of right lower lobe due to methicillin resistant Staphylococcus aureus (MRSA) ([facility])- Primary documented in this encounter Care Teams Schedule Announcer Relationship Specialty Start Date End Date Brandi Alvarado, FINANCIAL PROCESSING CLERK.CAUSTIC STRENGTH INSPECTOR [address] [place] [address] PCP - General Nurse Practitioner 10/27/24 documented as of this encounter
--- OUTSIDE RECORDS SUMMARY | 2024-12-05 12:17 | XMS_ITS | Encounter Summary ---
Author Organization [facility] Address [address] [place], [place] [id number] Care Team Providers Care Retread Builder Name Role Phone Jenny, BrandiJasmin HOOVER Primary Care Provider [phone] Blanquita Hargrove RN Unavailable [phone] Kvng Perez MD Unavailable [phone] Source Comments In the event this information is protected by the Federal Confidentiality of Alcohol and Drug AbusePatient Records regulations: The Federal rules restrict any use of the information to criminally investigate or prosecute any alcohol or drug abuse patient.[facility] Reason for Visit * Reason Comments Appointment Encounter Details Date Type Department Care Team (Late st Contact Info) Description 11/17/2024 Telephone Cancer Appts [facility] [address] Kvng Perez MD [facility] [place] [facility] [place] [address] Appointment Social History Tobacco Use Types Packs/Day [...] is lower risk 9 11/15/2024 Data from: https://www.neighborhoodatlas.medicine.[facility]/. Last address used for calculation [address] 11/15/2024 Sex and Gender Information Value Date Recorded Sex Assigned at Not on file Legal Sex Male 8:04 AM EST Gender Identity Not on file Sexual Orientation Not on file documented as of this encounter Miscellaneous Notes * Telephone Encounter - Carolina Perdue - 11/29/2024 4:01 PM EDT SIM rescheduled to 12/08. * Telephone Encounter - Carolina Perdue - 11/23/2024 1:46 PM EDT Per appointments, pt's SIM was rescheduled to 11/30. Carolina Perdue * Telephone Encounter - Carolina Perdue - 11/20/2024 2:16 PM EDT SIM scheduled for 11/23 -- Education w/ Blanquita scheduled on 11/30 (Tiff was out on the ). Patient notified of ed appt. Carolina Perdue * Telephone Encounter - Carolina Perdue - 11/17/2024 3:01 PM EDT Images from the original note were not included. Will schedule once RTC date is deteremined for XRT. Carolina Perdue documented in this encounter Plan of Treatment Upcoming Encounters Date Type Department Care Team (Late st Contact Info) Description 12/07/2024 8:15 AM EDT Appointment Radiology Pet CT [address] [facility] [address] CT Head 12/08/2024 10:00 AM EDT Nurse Visit Radiation Oncology [address] [place] [address] [place] [address] Mae, Nurse Radt [address] [place] [address] [place] [address] IV start 12/08/2024 10:30 AM EDT Office Visit Radiation Oncology [address] [place] [address] [place] [address] Ezra Moreno MD [address] [place] [address] [place] [address] SIM Lung, IV contrast,esoph contrast, 4DCT, consent signed documented as of this encounter Visit Diagnoses Not on filedocumented in this encounter Care Teams Retread Builder Relationship Specialty Start Date End Date Brandi Alvarado, EMERGENCY CARE ATTENDANT.SENIOR PROJECT MANAGER ENGINEERING [address] [place], [place] [id number] PCP - General Nurse Practitioner 10/27/24 Blanquita Hargrove, RN [address] [place] [address] [place] [address] Specialty Airplane Dispatch Clerk Hematology/Oncology 11/29/24 Kvng Perez MD [address] [place] [address] [place] [address] Physician Hematology/Oncology 11/29/24 documented as of this encounter
--- OUTSIDE RECORDS SUMMARY | 2024-12-05 12:17 | XMS_ITS | Encounter Summary ---
Author Organization [facility] Address [address] [place], [place] [address] Care Team Providers Care Director Of Culture Name Role Phone Jenny, BrandiJasmin HOOVER Primary Care Provider [phone] Blanquita Hargrove RN Unavailable [phone] Kvng Perez MD Unavailable [phone] Source Comments In the event this information is protected by the Federal Confidentiality of Alcohol and Drug AbusePatient Records regulations: The Federal rules restrict any use of the information to criminally investigate or prosecute any alcohol or drug abuse patient.[facility] Encounter Details Date Type Department Care Team (Late st Contact Info) Description 11/17/2024 Telephone Hematology/Oncology [facility] [place] [address] Kvng Perez MD [facility] [place] [address] Social History Tobacco Use Types Packs/Day Years [...] risk 9 11/15/2024 Data from: https://www.neighborhoodatlas.medicine.[facility]/. Last address used for calculation [address] 11/15/2024 Sex and Gender Information Value Date Recorded Sex Assigned at Not on file Legal Sex Male 8:04 AM EST Gender Identity Not on file Sexual Orientation Not on file documented as of this encounter Miscellaneous Notes * Telephone Encounter - Carolina Perdue - 11/17/2024 3:26 PM EDT Waiting for XRT date TBD. SIM scheduled for 11/23. Carolina Perdue * Telephone Encounter - Kvng Perez MD - 11/17/2024 3:11 PM EDT Please load weekly carbo taxol regimen in [place] and schedule it. Thank you documented in this encounter Plan of Treatment Upcoming Encounters Date Type Department Care Team (Late st Contact Info) Description 12/07/2024 8:15 AM EDT Appointment Radiology Pet CT [address] [facility] [address] CT Head 12/08/2024 10:00 AM EDT Nurse Visit Radiation Oncology [address] [facility] [address] Mae, Nurse Radt [address] [facility] [address] IV start 12/08/2024 10:30 AM EDT Office Visit Radiation Oncology [address] [facility] [address] Ezra Moreno MD [address] [facility] [address] SIM Lung, IV contrast,esoph contrast, 4DCT, consent signed documented as of this encounter Visit Diagnoses Diagnosis Malignant neoplasm of lower lobe of right lung (HCC)- Primary documented in this encounter Care Teams Director Of Culture Relationship Specialty Start Date End Date Brandi Alvarado, MINISTER ASSISTANT.SECURITY MANAGER [address] [place] [address] PCP - General Nurse Practitioner 10/27/24 Blanquita Hargrove, RN [address] [facility] [place] [address] Specialty Horse Race Starter Hematology/Oncology 11/29/24 Kvng Perez MD [address] [facility] [place] [address] Physician Hematology/Oncology 11/29/24 documented as of this encounter
--- OUTSIDE RECORDS SUMMARY | 2024-12-05 12:17 | XMS_ITS | Encounter Summary ---
Author Organization [facility] Address [address] [place] [address] Care Team Providers Care Robotics Software Engineer Name Role Phone Brandi Alvarado APRN.[facility] Primary Care Provider [phone] Source Comments In the event this information is protected by the Federal Confidentiality of Alcohol and Drug AbusePatient Records regulations: The Federal rules restrict any use of the information to criminally investigate or prosecute any alcohol or drug abuse patient.[facility] Reason for Referral * Outpatient Procedure (Routine) - New Request Specialty Diagnoses / Procedures Referred By Contac t Referred To [facility] Diagnoses Malignant neoplasm of lower lobe of right lung (HCC) Procedures SPIROMETRY BASELINE ONLY SPMTRY W/VC EXPIRATORY MARYCARMEN W/WO MXML VOL VNTJ Ezra Moreno MD [address] [place] [address] [place] [address] Phone: tel: fax: Respiratory Admire [address] [place] [address] Referral ID Status Reason Start Date Expiration Date Visits Requested Visits Authorized [id number] New Request Auto-Generat ed Referral 11/23/2024 12/23/2025 1 1 Reason for Visit * Reason Comments Patient Update Patient Question Encounter Details Date Type Department Care Team (Late st Contact Info) Description 11/23/2024 Telephone Radiation Oncology [address] [place] [address] Ezra Moreno MD [address] [place] [address] Patient Update; Patient Question Social History Tobacco Use Types Packs/Day Years [...] is lower risk 9 11/15/2024 Data from: https://www.neighborhoodatlas.medicine.[facility].edu/. Last address used for calculation [address] 11/15/2024 Sex and Gender Information Value Date Recorded Sex Assigned at Not on file Legal Sex Male 8:04 AM EST Gender Identity Not on file Sexual Orientation Not on file documented as of this encounter Miscellaneous Notes * Telephone Encounter - Blessing Dougherty - 11/23/2024 12:33 PM EDT I spoke with patient & let him know his SIM was rescheduled to 11/30/2024 & to arrive by 8:30 am. CLAY Ramos * Telephone Encounter - Blessing Dougherty - 11/23/2024 12:32 PM EDT Added nurse visit for IV start on 11/30/2024 at 8:45 am. CLAY Ramos * Telephone Encounter - Nancy De La Cruz RT(R) - 11/23/2024 12:26 PM EDT Sim re- scheduled for 11/30/24 at 9:00 am Please add nurse visit for 8:45 for IV start, notify patient of arrival time of 8:30 Nancy Hussein, RT(R)(T) * Telephone Encounter - Cassia Cantu RN - 11/23/2024 12:07 PM EDT PSS/RT: Dr. Moreno would like today's SIM rescheduled to next week any day 11/29-12/01. I notified Kim, pt's , of the above and our office will call her back to reschedule. Please call pt's with new appt. She would like to keep chemo ed as scheduled on 11/27 [address] is [address] Moreno will be in [place] on 11/27 and 11/28. Cassia Cantu RN * Telephone Encounter - Cassia Cantu RN - 11/23/2024 10:21 AM EDT Kim called back and current temp is 98.9, with Tylenol 1, 00mg at 8:00 a.m. Cassia Cantu RN * Telephone Encounter - Cassia Cantu RN - 11/23/2024 10:11 AM EDT I called and spoke with Kim and notified her Dr. Moreno would like PFT's prior to starting radiation treatment. A diagnostic CT chest is not needed at this time but the CT/SIM is with IV contrast and she said that's probably what she was thinking of. I notified her the foundation labs need drawn at our office and she is in agreement. She said Frantz had a fever yesterday and felt lousy but is feeling better today. She said at 8:00 a.m. his temp was 102.1 and she gave him Tylenol 1,000mg. I told her it is likely we will reschedule SIM but will update her once we know. She is unsure what his temp is now but will call him to call our office with an update. Dr. Moreno-PFT order pending your signature. Do you want to reschedule SIM to next week due to fever of 102.1 this a.m.? PSS: Please schedule PFT's at [facility] per patient request. These need scheduled prior to radiation new start. Thanks Cassia Cantu RN * Telephone Encounter - Kvng Perez MD - 11/23/2024 9:47 AM EDT No need of PFTs and CT chest. * Telephone Encounter - Ileana Bear RN - 11/23/2024 9:43 AM EDT [facility] labs will need to be drawn in our office. Will defer the other questions to the providers. Ileana Bear RN * Telephone Encounter - Cassia Cantu RN - 11/23/2024 9:23 AM EDT Kim, pt's spouse, left a message stating Frantz had bronchoscopy and sputum culture and will be starting doxycycline 100mg BID x 7 days today for MRSA. She is said authorization for PFT's is still pending but would like them done at [facility]-no orders in [facility]. She also asked about a CT chest with IV contrast being ordered-no orders in [facility]. She said he is to have labs per Dr. Perez and is wondering if he can have those drawn at [facility] as well. Patient is currently scheduled for SIM today with Dr. Moreno. Please advise: Does patient need PFT's and/or CT chest? Can patient have [facility] one and other ordered labs at [facility] or do they need done at [facility]? Should SIM continue today or be rescheduled d/t MRSA? Thanks Cassia Cantu, RN documented in this encounter Plan of Treatment Upcoming Encounters Date Type Department Care Team (Late st Contact Info) Description 12/07/2024 8:15 AM EDT Appointment Radiology Pet CT [address] [place] [address] CT Head 12/08/2024 10:00 AM EDT Nurse Visit Radiation Oncology [address] [place] [address] [place] [address] Holland, Nurse Radt [address] [place] [address] IV start 12/08/2024 10:30 AM EDT Office Visit Radiation Oncology [address] [place] [address] [place] [address] Ezra Moreno MD [address] [place] [address] SIM Lung, IV contrast,esoph contrast, 4DCT, consent signed Scheduled Orders Name Type Priority Associated Diagnoses Orde r Schedule SPIROMETRY BASELINE ONLY PFT Routine Malignant neoplasm of lower lobe of right lung (HCC) 1 Occurrences starting 11/23/2024 until 12/23/2025 documented as of this encounter Visit Diagnoses Diagnosis Malignant neoplasm of lower lobe of right lung (HCC)- Primary documented in this encounter Care Teams Robotics Software Engineer Relationship Specialty Start Date End Date Brandi Alvarado, FERRYBOAT OPERATOR.SHEET METAL MECHANIC [address] [place] [id number] PCP - General Nurse Practitioner 10/27/24 documented as of this encounter
--- OUTSIDE RECORDS SUMMARY | 2024-12-05 12:17 | XMS_ITS | Encounter Summary ---
Author Organization [facility] Address [address] [place] [address] Care Team Providers Care Substation Operator Conversion Name Role Phone Brandi Alvarado APRN.[facility] Primary Care Provider [phone] Source Comments In the event this information is protected by the Federal Confidentiality of Alcohol and Drug AbusePatient Records regulations: The Federal rules restrict any use of the information to criminally investigate or prosecute any alcohol or drug abuse patient.[facility] Reason for Visit * Reason Onset Date Comments Refill Request 11/27/2024 Care Coordination 11/27/2024 Treatment prep Encounter Details Date Type Department Care Team (Late st Contact Info) Description 11/27/2024 Refill Hematology/Oncology [address] [facility] [place] [address] Blanquita Hargrove RN [address] [facility] [place] [address] Refill Request; Care Coordination (Treatment prep) Social History Tobacco Use Types Packs/Day Years [...] is lower risk 9 11/15/2024 Data from: https://www.neighborhoodatlas.medicine.[facility]/. Last address used for calculation [address] 11/15/2024 Sex and Gender Information Value Date Recorded Sex Assigned at Not on file Legal Sex Male 8:04 AM EST Gender Identity Not on file Sexual Orientation Not on file documented as of this encounter Miscellaneous Notes * Telephone Encounter - Blanquita Hargrove RN - 11/27/2024 9:09 AM EDT Please sign pending antiemetics for pt's education today. Thanks Blanquita Hargrove RN documented in this encounter Plan of Treatment Upcoming Encounters Date Type Department Care Team (Late st Contact Info) Description 12/07/2024 8:15 AM EDT Appointment Radiology Pet CT [address] [facility] [place] [address] CT Head 12/08/2024 10:00 AM EDT Nurse Visit Radiation Oncology [address] [facility] [place] [address] Mae, Nurse Radt [address] [facility] [place] [address] IV start 12/08/2024 10:30 AM EDT Office Visit Radiation Oncology [address] [facility] [place] [address] Ezra Moreno MD [address] [facility] [place] [address] SIM Lung, IV contrast,esoph contrast, 4DCT, consent signed documented as of this encounter Visit Diagnoses Diagnosis Malignant neoplasm of lower lobe of right lung (HCC)- Primary documented in this encounter Care Teams Substation Operator Conversion Relationship Specialty Start Date End Date Brandi Alvarado, HYDROGEN TREATER.PAPER PROCESSING MACHINE HELPER [address] [place] [address] PCP - General Nurse Practitioner 10/27/24 documented as of this encounter
--- OUTSIDE RECORDS SUMMARY | 2024-12-05 12:17 | XMS_ITS | Clinical Summary ---
Author Organization [facility] Address [address] [place], [place] [id number] Care Team Providers Care Knot Picker Cloth Name Role Phone Brandi Alvarado APRN.CNP Primary Care Provider [phone] Blanquita Hargrove RN Unavailable [phone] Kvng Perez MD Unavailable [phone] Allergies Active Allergy Reactions Criticality Noted Date Comments Codeine Other: See Comments Low 10/25/2024 sweats Sulfamethoxazole Other: See Comments,Unknown 10/25/2024 Urinary retention Sulfamethoxazole-Trimethop rim Other: See Comments 12/17/2016 Medications Benzonatate 200 mg capsuleIndicat ions:cough Take 200 mg by mouth three times a day as needed for cough. 10/24/19 25 Active metoprolol succinate ER (TOPROL XL) 25 mg 24 hr tablet Take 25 mg by mouth. 06/29/19 24 Active fluticasone propionate (FLONASE NASAL) Use in the nose once daily. Active Acetaminophen 500 mg cap Take 1,000 mg by mouth four times a day as needed for pain. Active MEN'S MULTI-VITAMIN ORAL Take by mouth once daily. Active meclizine (ANTIVERT) 25 mg tabIndications :vertigo Take 25 mg by mouth three times a day as needed. 11/09/19 25 Active prochlorperazi ne (COMPAZINE) 10 mg tablet Take 1 tablet by mouth every 6 hours as needed. 100 tablet 2 11/28/19 25 Active ondansetron (ZOFRAN) 8 mg tablet Take 1 tablet by mouth every 8 hours as needed for nausea/vomiti ng. 90 tablet 2 11/28/19 Active HERBAL DRUGS MISC 1 capsule once daily. Moringa/Sours op Active OTC PRODUCT THC 5mg TID - appetite, pain, energy Active loratadine 10 mg dissolvable tablet Take 10 mg by mouth once daily. Active albuterol HFA (PROVENTIL HFA, VENTOLIN HFA) 90 mcg/actuation inhaler Inhale 2 puffs as instructed every 4 hours as needed for wheezing/shor tness of breath. 09/14/19 Active dextromethorph an-guaiFENesin (MUCINEX DM) 30-600 mg per tablet Take 2 tablets by mouth two times a day. Active albuterol HFA (PROVENTIL HFA, VENTOLIN HFA) 90 mcg/actuation inhaler INHALE 1 PUFF INTO THE LUNGS EVERY 4 HOURS NEEDED 09/14/19 25 025 Discontinued(Co urse of therapy completed) cyclobenzaprin e (FLEXERIL) 10 mg tablet Take 10 mg by mouth at bedtime as needed. 10/24/19 25 025 Discontinued(Di scontinued by another Health Care Provider) ibuprofen (MOTRIN) 200 mg tablet Take 200 mg by mouth every 6 hours as needed. 025 Discontinued meloxicam (MOBIC) 7.5 mg tablet Take 7.5 mg by mouth once daily. 025 Discontinued(Di scontinued by another Health Care Provider) predniSONE (DELTASONE) 20 mg tablet 10/24/19 25 025 Discontinued(Co urse of therapy completed) tamsulosin (FLOMAX) 0.4 mg Take 0.4 mg by mouth. 06/23/19 18 025 Discontinued amoxicillin-cl avulanate potassium (AUGMENTIN) 875-125 mg per tablet Take 1 tablet by mouth every 12 hours. 10/24/19 25 025 Discontinued(Co urse of therapy completed) diphenhydramin e HCl (ALLERGY MEDICATION ORAL) Take by mouth once daily. 025 Discontinued(Di scontinued by Patient) levoFLOXacin (LEVAQUIN) 750 mg tablet Take 750 mg by mouth. 11/09/19 25 025 Discontinued(Di scontinued by another Health Care Provider) doxycycline hyclate (VIBRAMYCIN) 100 mg capsule Take 1 capsule by mouth two times a day for 7 days. 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 Carpal tunnel syndrome 03/25/2006 Encounters Date Type Department Care Team Description 11/28/2024 Telephone Radiation Oncology [address] [place] [address] [place] [address] Ezra Moreno MD Patient Update; Future Appointment 11/27/2024 9:00 AM EDT Nurse Visit Hematology/Oncolog y [address] [facility] [place] [address] Blanquita Hargrove, RN Malignant neoplasm of lower lobe of right lung (HCC) (Primary Dx) 11/27/2024 Telephone Pulmonary Medicine [address] [address] José Antonio Tapia MD 11/27/2024 Telephone Pulmonary Medicine [address] [place] [address] Candice Garay (Pss) Patient Update 11/27/2024 Telephone Hematology/Oncolog y [address] [place] [address] [place] [address] Blanquita Hargrove RN Care Coordination (Clinical update) 11/27/2024 Refill Hematology/Oncolog y [address] [facility] [place] [address] Blanquita Hargrove, RN Refill Request; Care Coordination (Treatment prep) 11/23/2024 Orders Only Pulmonary Medicine [address] [place] [address] Alexandre Robertson MD 11/23/2024 Telephone Pulmonary Medicine [address] [place] [address] Juve, Janell Medication Request 11/23/2024 Telephone Radiation Oncology [address] [place] [address] [place] [address] Ezra Moreno MD Patient Update; Patient Question 11/23/2024 Results Follow-Up Pulmonary Medicine [address] [place] [address] Alexandre Robertson MD 11/23/2024 Orders Only Pulmonary Medicine [address] [place] [address] Alexandre Robertson MD Pneumonia of right lower lobe due to methicillin resistant Staphylococcus aureus (MRSA) (HCC) (Primary Dx) 11/20/2024 11:30 AM EDT - 11/20/2024 1:30 PM EDT Surgery Admitting [address] [place], [place] [id number] Alexandre Robertson MD BRONCHOSCOPY FLEXIBLE ARGON PLASMA COAGULATION 11/20/2024 10:49 AM EDT Anesthesia Event Admitting [address] [place], [place] [id number] Azalea Mejía MD Romanauski, Matthew, FIELD PIPE LINES SUPERVISOR.FIELD PIPE LINES SUPERVISOR 11/20/2024 9:51 AM EDT - 11/20/2024 2:51 PM EDT Hospital Encounter Admitting [address] [place], [place] [phone] Alexandre Robertson MD 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] Discharge Disposition: Home 11/20/2024 9:45 AM EDT - 11/20/2024 9:50 AM EDT Hospital Encounter Cardiology [address] [place] [address] Alexandre Robertson MD 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] Discharge Disposition: Home 11/20/2024 Telephone Cardiology [address] [place] [address] Carolina Cooney, PRITI 11/17/2024 2:00 PM EDT Visit (SP) Office Hematology/Oncolog y [address] [facility] [place] [address] Kvng Perez MD Malignant neoplasm of lower lobe of right lung (HCC) (Primary Dx) 11/17/2024 1:00 PM EDT Office Visit Radiation Oncology [address] [place] [address] [place] [address] Ezra Moreno MD Malignant neoplasm of lower lobe of right lung (HCC) 11/17/2024 Education Radiation Oncology [address] [place] [address] Cassia Cantu, RN Patient Education 11/17/2024 Telephone [facility]ematology[facility]Oncolog y [address] [facility] [address] Kvng Perez MD 11/17/2024 Telephone Cancer Appts [address] [place] [address] Kvng Perez MD Appointment 11/17/2024 Telephone Radiation Oncology [address] [place] [address] Ezra Moreno MD Appointment 11/17/2024 Travel 11/17/2024 Telephone Radiation Oncology [address] [place] [address] Ezra Moreno MD Patient Update 11/15/2024 11:00 AM EDT Office Visit Pulmonary Medicine [address] [place] [id number] Alexandre Robertson MD 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); Bronchial obstruction 11/13/2024 Travel 11/08/2024 H&P External-NonCCF Provider, ALONA DozierC 11/07/2024 Telephone Hematology/Oncolog y [address] [facility] [address] Brittany Marie, PRITI 11/07/2024 Telephone Hematology/Oncolog y [address] [facility] [address] Kvng Perez MD [place] Paperwork 11/01/2024 Telephone Hematology/Oncolog y [address] [facility] [facility] [address] Brittany Marie, RN Patient Update; Appointment 11/01/2024 Telephone [facility] G061 [address] [place] [address] Yady Gagnon, PHI Appointment (PreOp Bronch) 10/31/2024 Patient Update Pulmonary Medicine [address] [address] Maryuri Carrasquillo MD Bronchoscopy Scheduling- cleared (Initial Bronch Request ) 10/30/2024 2:30 PM EDT Education Nutrition Therapy [address] [place] [address] Nutrition Telephone 10/27/2024 9:00 AM EDT Visit (SP) Office Hematology/Oncolog y [address] [facility] [place] [address] Kvng Perez MD Malignant neoplasm of lower lobe of right lung (HCC) (Primary Dx) 10/27/2024 Telephone Pulmonary Medicine [address] [address] Janell An Bronchoscopy Referral 10/25/2024 Abstract Hematology/Oncolog y [address] [facility] [place] [address] Kvng Perez MD from Last 3 Months Immunizations Immunization Administration Dates Next Due influenza (IIV3) vaccine, tr ivalent (AFLURIA, FLULAVAL, FLUVIRIN, FLUZONE) 04/07/2021 influenza (RIV3) vaccine, re combinant, trivalent, PF (FLUBLOK) 03/31/2024 influenza (RIV4) vaccine, re combinant, quadrivalent, PF (FLUBLOK) 04/21/2023,03/16/2022 influenza (ccIIV4) vaccine, age 6+ mo, quadrivalent (FLUCELVAX) 04/02/2020 influenza vaccine, unspecified formulation 03/14 Family History Medical History Relation Comments Heart disease Father Arthritis Mother Melanoma Mother COPD Sister Relation Status Comments Father Alive Mother Alive Sister Social History Tobacco Use Types Packs/Day Years Used Date Smoking Tobacco: Former Cigarettes S tarted: 2017 Passive Smoke Exposure: Past Smokeless Tobacco: Never Tobacco Cessation:Counseling Given: Not [...] is lower risk 9 11/15/2024 Data from: https://www.neighborhoodatlas.[facility]/. Last address used for calculation [address] 11/15/2024 Sex and Gender Information Value Date Recorded Sex Assigned at Not on file Legal Sex Male 8:04 AM EST Gender Identity Not on file Sexual Orientation Not on file Last Filed Vital Signs Vital Sign Reading Time Taken Comments Blood Pressure 98/57 11/20/2024 1:20 PM EDT Pulse 85 11/20/2024 1:20 PM EDT Temperature 36 C (96.8 F) 11/20/2024 12:19 PM EDT Respiratory Rate 18 11/20/2024 1:15 PM EDT Oxygen Saturation 95% 11/20/2024 1:20 PM EDT Inhaled Oxygen Concentration - - Weight 86.9 kg (191 lb 9.3 oz) 11/17/2024 2:23 P M EDT Height 169.5 cm (5' 6.73 ) 11/17/2024 2:23 PM ED T Body Mass Index 30.25 11/17/2024 2:23 PM EDT Plan of Treatment Upcoming Encounters Date Type Department Care Team (Late st Contact Info) Description 12/07/2024 8:15 AM EDT Appointment Radiology Pet CT [address] [place] [address] CT Head 12/08/2024 10:00 AM EDT Nurse Visit Radiation Oncology [address] [place] [address] Mae, Nurse Radt [address] [place] [address] [place] [address] IV start 12/08/2024 10:30 AM EDT Office Visit Radiation Oncology [address] [place] [address] Ezra Moreno MD [address] [place] [address] SIM Lung, IV contrast,esoph contrast, 4DCT, consent signed Health Maintenance Due Date Last Done Comments Anxiety Screening 11/03/1979 Depression Screening 11/03/1979 HIV Screening 11/03/1979 Hepatitis C Screening 11/03/1979 DTaP,Tdap,Td Vaccine (1 - Tdap) 1980 Pneumococcal Vaccine: 50+ (1 of 2 - PCV) 1980 Shingrix Vaccine (1 of 2) 1980 CT Colonography 2006 Colonoscopy 2006 Fecal Occult Blood 2006 Prostate Cancer Screening Discussion 2006 Sigmoidoscopy 2006 Cologuard (FIT-DNA) 05/27/2025 05/27/2022 Colorectal Cancer Screening 05/27/2025 Lipid Screening 09/30/2025 09/30/2020 Diabetes Screening 11/10/2027 11/09/2024, 0 11/08/2024, 09/30/2020 RSV Vaccine (1 - 1-dose 75+ series) 2036 Covid-19 Vaccine Completed 03/31/2024, , 08/28/2020 Influenza Vaccine Completed 03/31/2024, , 03/16/2022, Additional history exists Medical Devices Implanted Type Area Bilingual Case Manager Device Identifier Shelf Expiration Date Model / Serial / Lot [id number] Implanted:0506/2024 (Quantity not on file) Lead eVendor Check 7842 / [id number] / [id number] Implanted:0 06/2024 (Quantity not on file) Lead eVendor Check 7841 / [id number] / [id number] Implanted:2 02/2025 (Quantity not on file) Pacemaker eVendor Check [id number] / [id number] / Procedures Procedure Name Priority Date/Time Associated Diagnosis Comments FOUNDATIONONELIQUIDCDX Routine 10:30 AM EDT Malignant neoplasm of lower lobe of right lung (HCC) FOLATE SERUM Routine 11/27/2024 10:30 AM EDT Malignant neoplasm of lower lobe of right lung (HCC) VITAMIN B12 BLOOD Routine 11/27/2024 10:30 AM EDT Malignant neoplasm of lower lobe of right lung (HCC) IRON + TIBC Routine 11/27/2024 10:30 AM EDT Malignant neoplasm of lower lobe of right lung (HCC) PD-L1 22C3 Routine 11/20/2024 11:10 AM EDT 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) SURGICAL PATHOLOGY Routine 11/20/2024 11:10 AM EDT 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) BACTERIAL CULTURE AND GRAM STAIN, RESPIRATORY, SPUTUM AND TRACHEAL ASPIRATE Routine 11/20/2024 11:04 AM EDT 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) FUNGAL CULTURE AND SMEAR (NO N DERMAL) Routine 11/20/2024 11:04 AM EDT 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) AFB CULTURE AND STAIN Routine 11/20/2024 11:04 AM EDT 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) INTUBATION Routine 11/20/2024 10:57 AM EDT BRONCHOSCOPY BRONCHIAL/ENDOBRNCL BX 1+ SITES 11/20/2024 10:49 AM EDT Bronchiolar disease [facility] W/DSTRJ LINDSAY RELIEF STENOSIS OTH/THN EXC 11/20/2024 10:49 AM EDT Bronchiolar disease CARDIAC IMPLANTABLE DEVICE CHECK Routine 11/20/2024 10:41 AM EDT BRONCHOSCOPY Routine 11/20/2024 10:20 AM EDT ECG COMPLETE 11/15/2024 11:34 AM EDT EXTERNAL IMAGING 11/08/2024 8:51 AM [...] 10/06/2024 from Last 3 Months Results * VITAMIN B12 (11/27/2024 10:30 AM EDT) [facility] Vitamin B12 782 232 - 1,245 pg/mL 11/27/2024 6:49 PM EDT [facility] Blood BLOOD SPECIMEN / Unknown Venipuncture / Unknown 11/27/2024 10:30 AM EDT 11/27/2024 10:30 AM EDT us Kvng Perez MD LABORATORY Final Res ult [facility] [address] [facility] Desk [address] [address], * (ABNORMAL) IRON AND TIBC (11/27/2024 10:30 AM EDT) [facility] Iron 32(L) 41 - 186 ug/dL 11/27/2024 6:32 PM EDT [facility] TIBC 264 232 - 386 ug/dL 11/27/2024 6:32 PM EDT [facility] Transferrin Saturation 12.1(L) 15.0 - 57.0 % 11/27/2024 6:32 PM EDT [facility] Blood BLOOD SPECIMEN / Unknown Venipuncture / Unknown 11/27/2024 10:30 AM EDT 11/27/2024 10:30 AM EDT Kvng Perez MD LABORATORY Final Res ult Performing Organization Address City/[facility]/ZIP Co de Phone Number [facility] [address] [place] [address], [place] * FOLATE, SERUM (11/27/2024 10:30 AM EDT) Folate 14.7 >4.7 ng/mL 11/27/2024 6:49 PM EDT [facility] Blood BLOOD SPECIMEN / Unknown Venipuncture / Unknown 11/27/2024 10:30 AM EDT 11/27/2024 10:30 AM EDT us Kvng Perez MD LABORATORY Final Res ult Performing Organization Address [facility]/ZIP Co de Phone Number [facility] [address] [place] [address], [place] * SURGICAL PATHOLOGY (11/20/2024 11:10 AM EDT) Case Report Surgical Pathology Report Case: [id number] Authorizing Provider: Alexandre Robertson MD Collected: 11/20/2024 11:10 AM Ordering Location: Admitting Received: 11/20/2024 03:27 PM Pathologist: William Araujo V, MD Specimen: Lung, Right, Biopsy, BI EBBX 11/24/2024 10:49 AM EDT [facility] FINAL DIAGNOSIS Right lung, bronchus intermedius, endobronchial biopsy: - Squamous cell carcinoma. NV11/21/2024 11/24/2024 10:49 AM EDT [facility] at 1050 EDT Gross Description A. Lung, Right, Biopsy Received in formalin are multiple pieces of cardenas-red, soft tissue aggregating to 2.1 x 0.6 x 0.1 cm. Totally submitted in one cassette. 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 The above diagnosis remains unchanged. 11/24/2024 Laboratory Developed Test (LDT) Disclaimer: Performance characteristics of immunohistochemical, immunofluorescent and chromogenic in-situ hybridization tests have been determined by the performing laboratory within [facility] Pathology and Laboratory Medicine [place] ([facility], [facility][1], [facility] or [facility]) in a manner consistent with CLIA requirements. One or more of these tests have not been cleared or approved by the FDA. RT[facility] is regulated under CLIA as qualified to perform high-complexity testing. These tests are used for clinical purposes. They should not be regarded as investigational or for research. Positive and negative controls stain appropriately. 11/24/2024 10:49 AM EDT [facility] Addendum electronically signed by William Araujo V, MD on 11/24/2024 at 1049 EDT Disclaimer Laboratory Developed Test (LDT) Disclaimer: Performance characteristics of immunohistochemical, immunofluorescent, and chromogenic in-situ hybridization tests have been determined by the performing laboratory within [facility] Pathology and Laboratory Medicine Department ([facility], [facility][1], [facility], [facility], [facility], [facility], or [facility]) in a manner consistent with CLIA requirements. One or more of these tests may not have been cleared or approved by the FDA. RT[facility] is regulated under CLIA as qualified to perform high-complexity testing. These tests are used for clinical purposes. These should not be regarded as investigational or for research. Positive and negative controls stain appropriately. 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] us Jamie-Kevin Robertson MD SURGICAL PATHOLOGY Edited Result - Final [facility] [address] [place] [address], * PD-L1 22C3 (11/20/2024 11:10 AM EDT) TPS Interpretation Negative (less than 1%) 11/24/2024 10:50 AM EDT [facility] Tumor Proportion Score (TPS) 0 11/24/2024 10:50 AM EDT [facility] Tumor Type Other (See Comment) 11/24 10:50 AM EDT [facility] 11/24/2024 10:50 AM EDT [facility] Fixative Formalin, 10% Neutra l Buffered 11/24/2024 10:50 AM EDT [facility] Interpretation Comment and Reference Range Interpretation standard: TPS: The Tumor Proportion Score is the percentage of the viable tumor cells demonstrating partial or completed membrane staining of any intensity. Reference Range for PDL1 expression in Non-Small Cell Lung Cancer (NSCLC) TPS less than 1%: Negative TPS between 1 - 49%: Low Positive TPS greater than 50%: High Positive The PDL1 expression of Non-Small Cell Lung Cancer (NSCLC) is interpreted to determine if the patient should be considered for treatment with either pembrolizumab (KEYTRUDA) or cemiplimab-rwlc (LIBTAYO). Please refer to the Product label for additional information. KEYTRUDA - (https://www.gocarshare.com.com/prescribing-inf ormation/) LIBTAYO - (https://www.eDiets.com .[employer]/sites/default/ayo es/Libtayo_FPI.pdf) 11/24/2024 10:50 AM EDT [facility] Method Immunohistochemistry was performed on formalin fixed paraffin-embedded tissue using the mouse monoclonal antibody 22C3 ([facility]; [place], [place]) followed by ultrasensitive bright field detection (Optiview with amplification [[employer], [place]]). 11/24/2024 10:50 AM EDT [facility] Disclaimer Laboratory Developed Test (LDT) Disclaimer: Performance characteristics of immunohistochemical, immunofluorescent and chromogenic in-situ hybridization tests have been determined by the performing laboratory within [facility] Pathology and Laboratory Medicine Department ([facility], [facility][1], [facility], [facility], [facility], [facility], or [facility]) in a manner consistent with CLIA requirements. One or more of these tests have not been cleared or approved by the FDA. RT-PLM is regulated under CLIA as qualified to perform high-complexity testing. These tests are used for clinical purposes. They should not be regarded as investigational or for research. Positive and negative controls stain appropriately. 11/24/2024 10:50 AM EDT [facility] Block ID A1 11/24/2024 10:50 AM EDT [facility] Performing Lab Diagnostic interpretation performed at: [facility], [address] [place] [address], [place] [address] CLIA# [id number] Continuous Pillowcase Cutter: Padilla López MD Electronically signed out by: William Araujo MD 11/24/2024 10:50 AM EDT [facility] Tissue BIOPSY OF LUNG / Unknown 11/20/2024 11:10 AM EDT 11/22/2024 10:11 AM EDT us Alexandre Robertson MD SURGICAL PATHOLOGY Final Result [facility] [address] [facility] Desk [address] [address], * (ABNORMAL) BACTERIAL CULTURE AND GRAM STAIN, RESPIRATORY, SPUTUM AND TRACHEAL ASPIRATE (11/20/2024 11:04 AM EDT) Culture, Respiratory Few Methicillin-RESISTANT Staphylococcus aureus (MRSA)(A) MINIMUM INHIBITORY CONCENTRATI ON(VITEK) 7:48 AM EDT [facility] [place] PBP2a SA Culture [place] Test PBP2a was detected by an immunochromatographic assay. PBP2a is encoded for by the mecA gene. This isolate is methicillin-resistant. 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 This test was developed and its performance characteristics determined by the [facility] [place] ([facility]). It has not been cleared or approved by the FDA. [facility] is regulated under CLIA as qualified to perform high-complexity testing. This test is used for clinical purposes. It should not be regarded as investigational or for research. Organism Antibiotic Method Susceptibility Methicillin-RESISTANT Staphylococcus aureus (MRSA) Oxacillin MINIMUM INHIBITORY CONCENTRATION(RACHEL K) >=4: Resistant Comment:Oxacillin re sistant Staphylococci are resistant to all beta-lactam antibiotics (except new cephalosporins with anti-MRSA activity i.e. ceftaroline) Methicillin-RESISTANT Staphylococcus aureus (MRSA) Erythromycin MINIMUM INHIBITORY CONCENTRATION(RACHEL K) >=8: Resistant Methicillin-RESISTANT Staphylococcus aureus (MRSA) Clindamycin MINIMUM INHIBITORY CONCENTRATION(RACHEL K) <=0.12: Susceptible Comment:Testing for inducible clindamycin resistance was performed. Methicillin-RESISTANT Staphylococcus aureus (MRSA) Trimeth sulfameth MINIMUM INHIBITORY CONCENTRATION(RACHEL K) >=320: Resistant Methicillin-RESISTANT Staphylococcus aureus (MRSA) Vancomycin MINIMUM INHIBITORY CONCENTRATION(RACHEL K) 1: Susceptible Methicillin-RESISTANT Staphylococcus aureus (MRSA) Linezolid MINIMUM INHIBITORY CONCENTRATION(RACHEL K) 2: Susceptible Methicillin-RESISTANT Staphylococcus aureus (MRSA) Rifampin MINIMUM INHIBITORY CONCENTRATION(RACHEL K) <=0.5: Susceptible Comment:Rifampin alexis uld not be used alone for antimicrobial therapy. Methicillin-RESISTANT Staphylococcus aureus (MRSA) Levofloxacin MINIMUM INHIBITORY CONCENTRATION(RACHEL K) >=8: Resistant Methicillin-RESISTANT Staphylococcus aureus (MRSA) Tetracycline MINIMUM INHIBITORY CONCENTRATION(RACHEL K) <=1: Susceptible Methicillin-RESISTANT Staphylococcus aureus (MRSA) Doxycycline MINIMUM INHIBITORY CONCENTRATION(RACHEL K) <=0.5: Susceptible us Alexandre Robertson MD MICROBIOLOGY Final Result [facility] [address] [place] [address], * Airway (11/20/2024 10:57 AM EDT) Narrative Marvel Burgos APRN.FIELD PIPE LINES SUPERVISOR - 11/20/2024 10:57 AM EDT Marvel Burgos APRN.FIELD PIPE LINES SUPERVISOR 11/20/2024 11:10 AM Airway General Information Procedure Start Time/Medication Administration: 11/20/2024 10:57 AM Procedure End Time: 11/20/2024 10:57 AM Patient location during procedure: OR Timeout Performed Pre-procedure: timeout performed Consent Obtained: Yes Patient identity confirmed: arm band Staffing Anesthesiologist: Azalea Mejía MD FIELD PIPE LINES SUPERVISOR: Marvel Burgos APRN.FIELD PIPE LINES SUPERVISOR Performed by: anesthesiologist and FIELD PIPE LINES SUPERVISOR Indications and Patient Condition Indications for airway management: anesthesia Preoxygenated: yes anesthesia circuit Patient position: sniffing Method: asleep Cricoid Pressure: No Manual In-Line Stabilization: No Difficult Mask: No Airway Accessory: oral airway Final Airway Details Final airway type: endotracheal airway Final Endotracheal Airway: ETT Cuffed: yes Successful intubation technique: video laryngoscopy Devices used: Falcon Endotracheal tube insertion site: oral Blade size: #4 ETT size (mm): 8.5 Measured from: teeth Measurement (cm): 21 Placement verified by: bronchoscopy and capnometry Cormack-Lehane Classification: grade I - full view of glottis Number of attempts at approach: 1 Failed airway: no Airway not difficult us Azalea B Alfonoz MEDINA ANESTHESIA ORDERABLES Irina teixeira Result * CARDIAC IMPLANTABLE DEVICE CHECK (11/20/2024 10:41 AM EDT) Date Time Interrogation Session [id number] [facility] CARDIAC Implantable Pulse Generator Bilingual Case Manager [employer] MURJ CARDIAC Implantable Pulse Generator Type Pacemaker MURJ CARDIAC Implantable Pulse Generator Model L331 M[facility] CARDIAC Implantable Pulse Generator Serial Number [id number] [facility] CARDIAC Implantable Pulse Generator Implant Date 20241109 [facility] CARDIAC Battery Status JOSELIN MURJ CARDIAC Lead Channel Sensing Intrinsic Amplitude 4.200 [facility] CARDIAC Lead Channel Setting Sensing Sensitivity 0.25 [facility] CARDIAC Lead Channel Impedance Value 523 [facility] CARDIAC Lead Channel Pacing Threshold Amplitude 4.500 [facility] CARDIAC Lead Channel Pacing Threshold Pulse Width 0.4 [facility] CARDIAC Lead Channel Measurements Date and Time 2024-11-20 [facility] CARDIAC Lead Channel Setting Pacing Amplitude 5.000 MURJ CARDIAC Lead Channel Setting Pacing Pulse Width 0.4 MURJ CARDIAC Lead Channel Sensing Intrinsic Amplitude 16.500 MURJ CARDIAC Lead Channel Setting Sensing Sensitivity 0.60 [facility] CARDIAC Lead Channel Impedance Value 740 MURJ CARDIAC Lead Channel Pacing Threshold Amplitude 1.400 MURJ CARDIAC Lead Channel Pacing Threshold Pulse Width 0.4 [facility] CARDIAC Lead Channel Measurements Date and Time 2024-11-20 M[facility] CARDIAC Lead Channel Setting Pacing Amplitude 3.500 [facility] CARDIAC Lead Channel Setting Pacing Pulse Width 0.4 [facility] CARDIAC Kurt Setting Mode (NBG Code) DDD [facility] CARDIAC Kurt Setting Lower Rate Limit 60 MURJ CARDIAC Kurt Setting AT Mode Switch Rate 170 MURJ CARDIAC Kurt Setting Maximum Tracking Rate 130 MURJ CARDIAC Kurt Setting Maximum Sensor Rate 130 [facility] CARDIAC Kurt Setting PAV Delay 180 MURJ CARDIAC Kurt Setting RITA Delay 150 MURJ CARDIAC Zone Setting Type Category VF [facility] CARDIAC Zone Setting Status On [facility] Zone ID 1 M[facility] CARDI[facility] Zone Setting Type Category VT [facility] Rate 1 160 M[facility] CARD[facility] Zone Setting Status On [facility] Zone ID 2 MUR CARDIAC Zone Setting Type Category VT1 [facility] Setting Status On [facility] ID 3 [facility] Implantable Lead Bilingual Case Manager [employer] [facility] Im[facility] Lead Model [id number] [facility] Implantable Lead Location Right Ventricle [facility] Implantable Lead Connection Status Connected [facility] Implantable Lead Serial Number [id number] [facility] Implantable Lead Implant Date 20241012 [facility] Implantable Lead Bilingual Case Manager [employer] [facility] Implantable Lead Model [id number] [facility] Implantable Lead Location Right Atrium [facility] Implantable Lead Connection Status Connected [facility] Implantable Lead Serial Number [id number] [facility] Implantable Lead Implant Date 20241012 [facility] 11/20/2024 10:4 1 AM EDT Narrative [facility] - 11/26/2024 3:22 PM EDT Pre-Op Device Evaluation * Device type: DUAL CHAMBER PACEMAKER * Pre-Op bronchoscopy * Presenting Rhythm: /VS/UNDERWATER HUNTER TRAPPER * Underlying Rhythm: Sinus Rhythm * Programmed Mode: DDD 60-130bpm * Magnet Rate: DOO 100bpm * Programming Changes Needed Pre/Post Op: None * Battery Status: Battery is at JOSELIN, . * Atrial Arrhythmias: There has been 1 false atrial detection. Anticoagulants listed: None. * Ventricular Arrhythmias: None. * Lead Measurements: RV Capture threshold and sensing are appropriate. RA threshold is high at 4.5V @ 0.4ms.The pacing outputs maintain safety margin. Lead impedance trends are normal. * Implant Site/Symptoms: The incision and pocket still have steri-strips on it. No S/S of infection nor swelling. * Other Diagnostics: AP <1%, UNDERWATER HUNTER TRAPPER 2% Elevated Atrial Capture Threshold * Elevated Atrial Capture Threshold * Measured value 4.5V@0.4ms * Programmed setting 5V@0.4ms Device Reprogrammed Device reprogrammed, changes are listed below: * RA output changed from 3.5V to 5.0V NOTE TO PROVIDERS: Cardiac Implanted Devices Flowsheets contain detailed Programming and Evaluation data. Full Docket/PDF found below under Scanned Documents . Procedure Note Nevaeh Metzger MD - 11/26/2024 Pre-Op Device Evaluation * Device type: DUAL CHAMBER PACEMAKER * Pre-Op bronchoscopy * Presenting Rhythm: /VS/UNDERWATER HUNTER TRAPPER * Underlying Rhythm: Sinus Rhythm * Programmed Mode: DDD 60-130bpm * Magnet Rate: DOO 100bpm * Programming Changes Needed Pre/Post Op: None * Battery Status: Battery is at JOSELIN, . * Atrial Arrhythmias: There has been 1 false atrial detection.Anticoagulants listed: None. * Ventricular Arrhythmias: None. * Lead Measurements: RV Capture threshold and sensing are appropriate. RAthreshold is high at 4.5V @ 0.4ms.The pacing outputs maintain safetymargin. Lead impedance trends are normal. * Implant Site/Symptoms: The incision and pocket still have steri-stripson it. No S/S of infection nor swelling. * Other Diagnostics: AP <1%, UNDERWATER HUNTER TRAPPER 2% Elevated Atrial Capture Threshold * Elevated Atrial Capture Threshold * Measured value 4.5V@0.4ms * Programmed setting 5V@0.4ms Device Reprogrammed Device reprogrammed, changes are listed below: * RA output changed from 3.5V to 5.0V NOTE TO PROVIDERS: Cardiac Implanted Devices Flowsheets contain detailedProgramming and Evaluation data. Full Docket/PDF found below under Scanned Documents . us Alexandre Robertson MD CARDIOLOGY Final Result [facility] CARDI[facility] * BRONCHOSCOPY (11/20/2024 10:20 AM EDT) Anatomical Region Laterality Modality Other 11/20/2024 10:2 0 AM EDT Narrative 11/20/2024 12:57 PM EDT Patient Name: Frantz Roa Procedure Date: 11/20/2024 10:20 AM Date of : 1960 Admit Type: Outpatient Age: 64 Gender: Male Note Status: Finalized Procedure: Bronchoscopy Indications: Abnormal CT scan of chest, Bronchus intermedius mass, Endobronchial mass Providers: Alexandre Robertson MD (Doctor) Referring MD: Requesting Physician: Alexandre Robertson MD Patient Profile: Refer to note in patient chart for documentation of history and physical. Imaging Source: CT of chest. The patient's ECOG performance status grade is 0 - fully active, able to carry on all pre-disease performance without restriction. Medicines: General Anesthesia, See the Anesthesia note for documentation of the administered medications Complications: No immediate complications Estimated Blood Loss: Estimated blood loss was minimal. Procedure: Pre-Anesthesia Assessment: - A History and Physical has been performed. Patient meds and allergies have been reviewed. The risks and benefits of the procedure and the sedation options and risks were discussed with the patient. All questions were answered and informed consent was obtained. Patient identification and proposed procedure were verified prior to the procedure by the physician, the nurse and the anesthesiologist in the procedure room. Mental Status Examination: normal. Airway Examination: normal oropharyngeal airway. Respiratory Examination: Not performed. CV Examination: normal. ASA Grade Assessment: III - A patient with severe systemic disease. After reviewing the risks and benefits, the patient was deemed in satisfactory condition to undergo the procedure. The anesthesia plan was to use general anesthesia. Immediately prior to administration of medications, the patient was re-assessed for adequacy to receive sedatives. The heart rate, respiratory rate, oxygen saturations, blood pressure, adequacy of pulmonary ventilation, and response to care were monitored throughout the procedure. The physical status of the patient was re-assessed after the procedure. After confirmation of universal protocol, the bronchoscope was introduced. The bronchoscope was introduced through the mouth, via the endotracheal tube and advanced to the tracheobronchial tree of both lungs. The procedure was accomplished without difficulty. The patient tolerated the procedure well. Findings: The endotracheal tube is in good position. The trachea is of normal caliber. The paulette is sharp. The tracheobronchial tree of the left lung was examined to at least the first subsegmental level. Bronchial mucosa and anatomy in the left lung are normal; there are no endobronchial lesions, and no secretions. Right Lung Abnormalities: A partially obstructing mass was found proximally in the bronchus intermedius. The mass was medium-sized and endobronchial, friable and infiltrative. The lesion was successfully traversed with the therapeutic bronchoscope and the right middle lobe was visualized to be patent, however a partially obstructing (about 80% obstructed) airway abnormality was found in the right lower lobe. There is some mucopurulent mucus in the proximal orifice of the bronchus intermedius, but none distally that is obvious. Washings were obtained in the bronchus intermedius and sent for bacterial, AFB and fungal analysis. The return was blood-tinged, cellular and cloudy. A dose of levophed and TXA was instilled into the bronchus intermedius before biopsy as the tumor was friable. Endobronchial biopsies of a lesion were performed in the bronchus intermedius using a forceps and sent for histopathology examination. 8 were obtained. In anticipation of using electrocautery, the FIO2 was lowered to achieve an end tidal O2 of <40%. After lowering the FIO2 to achieve an end tidal O2 of <40%, an electrocautery argon plasma coagulation probe was used to vaporize the tumor in the bronchus intermedius into the right lower lobe. A Devon balloon size 4 was used to dilate the right lower lobe for tamponade and attempting to open the right lower lobe. Saline dilation was also used, however there is tumor endobronchially in the right lower lobe >80%. Additional use of regular forceps, alternating with hot forceps were used to remove endobronchial tumor until the tumor is mostly flat and isolated to the lateral wall. Finally, argon plasma coagulation is applied to the endobronchial tumor for further vaporization. No stent was placed as the right lower lobe were not patent and the bronchus intermedius is now >80% patent. Cold saline was used to flush the airway in the right lower lobe. Impression: - Abnormal CT scan of chest - Bronchus intermedius mass - Endobronchial mass - The airway examination of the left lung was normal. 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 - Partially obstructing (about 80% obstructed) airway abnormality in the right lower lobe. - An endobronchial biopsy was performed. - Washings were obtained. - Hot forceps and argon plasma coagulation were used for tumor vaporization. Recommendation: - Await test results. - The patient will be observed post-procedure, until all discharge criteria are met. Attending Participation: I personally performed the entire procedure. MD Alexandre Resendiz MD 11/20/2024 12:54:55 PM This report has been signed electronically by Alexandre Robertson MD Number of Addenda: 0 Note Initiated On: 11/20/2024 10:20 AM Procedure Start: 11:02:38 AM Procedure End: 12:00:41 PM us [facility] Provider DIGESTIVE DISEASE Final Result * EXTERNAL IMAGING (11/08/2024 8:51 AM EDT) [...] PM EDT Images were obtained outside of [facility] Procedure Note Provider, [facility] - 10/23/2024 Images were obtained outside of [facility] Provider RADIOLOGY Final Result * OT-CT ANGIO CHEST IMPORT (10/06/2024) Anatomical Region Laterality Modality Other 10/06/2024 Narrative 10/23/2024 6:25 PM EDT Images were obtained outside of [facility] Procedure Note Provider, [facility] - 10/23/2024 Images were obtained outside of [facility] Provider RADIOLOGY Final Result * CT-CT CHEST WO CON IMPORT (10/06/2024) Anatomical Region Laterality Modality Other 10/06/2024 Narrative 10/23/2024 2:57 PM EDT Images were obtained outside of [facility] Procedure Note Provider, [facility] - 10/23/2024 Images were obtained outside of [facility] Provider RADIOLOGY Final Result from Last 3 Months Insurance [facility] PPO OOS Care Teams Knot Picker Cloth Relationship Specialty Start Date End Date Brandi Alvaraod, FIELD PIPE LINES SUPERVISOR.SOCIAL WORK COORDINATOR [address] [place] [address] PCP - General Nurse Practitioner 10/27/24 Blanquita Hargrove, RN [address] [place] [address] Specialty Air Technician Hematology/Oncology 11/29/24 Kvng Perez MD [address] [place] [address] [place] [address] Physician Hematology/Oncology 11/29/24
--- OUTSIDE RECORDS SUMMARY | 2024-12-05 12:17 | XMS_ITS | Encounter Summary ---
Author Organization [facility] Address [address] [place], [place] [id number] Care Team Providers Care Cooperative Extension Agent Name Role Phone Brandi Alvarado APRN.CNP Primary Care Provider [phone] Blanquita Hargrove RN Unavailable [phone] Kvng Perez MD Unavailable [phone] Source Comments In the event this information is protected by the Federal Confidentiality of Alcohol and Drug AbusePatient Records regulations: The Federal rules restrict any use of the information to criminally investigate or prosecute any alcohol or drug abuse patient.[facility] Encounter Details Date Type Department Care Team (Latest Contact Info) Description 11/08/2024 H&P External-NonCCF Provider, External, PARashi Do not enter address information under generic [...] is lower risk 9 10/27/2024 Data from: [email or web address] Last address used for calculation [address] [...] AM EDT Appointment Radiology Pet CT [address] [facility] [place] [address] CT Head 12/08/2024 10:00 AM EDT Nurse Visit Radiation Oncology [address] [place] [address] [place] [address] Mae, Nurse Radt [address] [place] [address] IV start 12/08/2024 10:30 AM EDT Office Visit Radiation Oncology [address] [place] [address] [place] [address] Ezra Moreno MD [address] [place] [address] [place] [address] SIM Lung, IV contrast,esoph contrast, 4DCT, consent signed documented as of this encounter Visit Diagnoses Not on filedocumented in this encounter Care Teams Cooperative Extension Agent Relationship Specialty Start Date End Date Brandi Alvarado, MANAGER BUSINESS OPERATIONS.POUCH MAKER [address] [place], [place] [id number] PCP - General Nurse Practitioner 10/27/24 Blanquita Hargrove RN [address] [place] [address] [place] [address] Specialty Account Resolution Analyst Hematology/Oncology 11/29/24 Kvng Perez MD [address] [place] [address] Physician Hematology/Oncology 11/29/24 documented as of this encounter
--- NOTE | 2024-12-05 12:20 | XR_ITS ---
XR/XR chest 2V IMPRESSION: NO SIGNIFICANT CHANGE IN CHEST FINDINGS. Impression dictated by: Neftali Lewis Jr., D.O. 12/05/2024 1:00 PM [facility] Electronically authenticated by: [id number] Y Date: 12/05/2024 13:00
== END 2024-12-05 12:12 | disposition home or self-care (01) ==
LOC: RAD 12:13
PROVIDERS: PCP Nurse Practitioner; Visit Provider Nurse Practitioner
DX: R50.9 Fever, unspecified (principal); Z78.9 Other specified health status; Z68.28 Body mass index [BMI] 28.0-28.9, adult; Z85.118 Personal history of other malignant neoplasm of bronchus and lung
CPT/HCPCS: 71046

== ENCOUNTER 2024-12-15 13:44 | Inpatient (IN) | payer BC, SELFPAY ==
[2024-12-15] VITALS (31 sets, daily range): BP systolic 92–118; BP diastolic 53–76; PULSE 73–123; TEMP 36.7–37.7; O2SAT 90–98; BMI 28.1; BMI 29.0
--- OUTSIDE RECORDS SUMMARY | 2024-12-15 13:52 | XMS_ITS | CCD ---
Author Organization [facility] CliniSywy Care Team Providers Care Food And Beverage Analyst Name Role Phone DR ALINA RAGLAND Admitting Unavailable RICARDO, DR ALINA Patterson Primary Care Unavailable RICARDO, DR ALINA Patterson Consulting Unavailable RICARDO, DR ALINA Patterson Attending Unavailable VICTORIA FLORES Attending Unavailable RICARDO, DR ALINA Patterson Primary Care Unavailable ANA, DR FREIDA Lagos Consulting Unavailable SANDRA, VICTORIA Admitting Unavailable WEI ASH Consulting Unavailable SANDRA, VICTORIA Consulting Unavailable VICTORIA FLORES Attending Unavailable RICARDO, DR ALINA Patterson Primary Care Unavailable SANDRA, VICTORIA Admitting Unavailable SANDRA, VICTORIA Consulting Unavailable ALINA RAGLAND Primary Care Physician [phone] Alina Ragland MD Primary Care Provider Tonja De Oliveira APRN Attending Provider Unavailable Primary Care Provider Unavailabl e Chip Carbajal DO Attending Provider Doug Bowles Primary Care Provider Chip Carbajal Attending Unavailable Chip Carbajal Admitting Unavailable Tonja De Oliveira Attending Unavailable Tonja De Oliveira Admitting Unavailable Alina Ragland Primary Care Unavailable Dennis HEALTH NURSE.Carlos POTTER Primary Care Provider [phone] Alina Ragland MD Primary Care Provider [phone] Dennis MCLEAN-Carlos POTTER Primary Care Provider ALINA RAGLAND Referring Unavailable ALINA RAGLAND Primary Care Unavailable ALINA RAGLAND Referring Unavailable ALINA RAGLAND Primary Care Unavailable JENNIFER BEST Attending Unavailable ALINA RAGLAND Referring Unavailable DENNIS, CARLOS L Primary Care Unavailable DENNIS, CARLOS L Primary Care Unavailable MITZY DOLL Attending Unavailable BRIA, FARTUN Attending Unavailable BRIA, FARTUN Referring Unavailable DENNIS, CARLOS L Primary Care Unavailable Delvin MARCOS, Tiffanie Chacon Unavailable Ana MEDINA, Kvng Unavailable IDANIA BARNEY Admitting Unavailable IDANIA BARNEY Attending Unavailable MITZY DOLL Referring Unavailable DENNIS, CARLOS L Primary Care Unavailable BRIA, FARTUN Consulting Unavailable DENNIS, CARLOS L Referring Unavailable DENNIS, CARLOS L Primary Care Unavailable BJORNBISHOP Attending Unavailable DENNIS, CARLOS L Referring Unavailable DENNIS, CARLOS L Primary Care Unavailable DENNIS, CARLOS L Referring Unavailable DENNIS, CARLOS L Primary Care Unavailable DENNIS, CARLOS L Referring Unavailable DENNIS, CARLOS L Primary Care Unavailable BJORNBISHOP POZO Attending Unavailable DENNIS, CARLOS L Referring Unavailable DENNIS, CARLOS L Primary Care Unavailable DENNIS, CARLOS L Primary Care Unavailable DENNIS, CARLOS L Primary Care Unavailable DENNIS, CARLOS L Primary Care Unavailable LOW, SEE-KEVIN Attending Unavailable LOW, SEE-KEVIN Admitting Unavailable WILLIAN FALCON Referring Unava ilable DENNIS, CARLOS L Primary Care Unavailable VENNEPUREDDY, KVNG Referring Unavailable VENNEPUREDDY, KVNG Attending Unavailable EZRA LIZAMA Attending Unavailable DENNIS, CARLOS L Primary Care Unavailable VENNEPUREDDY, KVNG Referring Unavailable DENNIS, CARLOS L Primary Care Unavailable MARYURI LOWERY Referring Unavail able DENNIS, CARLOS L Primary Care Unavailable LOW, SEE-KEVIN Attending Unavailable DENNIS, CARLOS L Primary Care Unavailable VENNEPUREDDY, KVNG Attending Unavailable CHIP CARBAJAL Referring Unavailable LOW, SEE-KEVIN Attending Unavailable LOW, SEE-KEVIN Admitting Unavailable DENNIS, CARLOS L Primary Care Unavailable DENNIS, CARLOS L Primary Care Unavailable JESUSITA PABON Attending Unavailable DENNIS, CARLOS L Primary Care Unavailable ALDAEZRA ROBLES Attending Unavailable DENNIS, CARLOS L Primary Care Unavailable DENNIS, CARLOS L Primary Care Unavailable VENNEPUREDDY, KVNG Referring Unavailable Dennis, Carlos L Attending Unavailable VICTORIA FLORES Attending Unavailable SAMSA, CHIP P Attending Unavailable SAMSA, CHIP P Referring Unavailable Dennis, Carlos Fowler Admitting Unavailable Dennis, Carlos Fowler Attending Unavailable Dennis, Carlos Fowler Attending Unavailable Dennis, Carlos Fowler Attending Unavailable Dennis, Carlos Fowler Attending Unavailable Dennis, Carlos Fowler Attending Unavailable Dennis HEALTH NURSE.Carlos POTTER Primary Care Provider Allergies Allergy Classification Reported Allergen(s) Allergy Type Date of Onset Reaction(s) Facility (2 sources) Sulfamethoxazole / Trimethoprim; Translations: [Bactrim] Drug Allergy 07-22-19 21 [facility] Repository (20 sources) Sulfamethoxazole; Translations: [sulfamethoxazole] Drug Allergy 09-01-19 25 Other: See Comments, Unknown, Other (See Comments), GI Disturbance [facility] (20 sources) Sulfamethoxazole / Trimethoprim; Translations: [sulfamethoxazole-t rimethoprim] Drug Allergy 12-18-19 17 Other: See Comments [facility] (1 source) Pollen 1 Allergy to substance Watery eye (finding), Eye swelling (finding) [facility] Comment on above: Pt only has allergy to [place]helia Tree Pollen (4 sources) Ophelia pollen Allergy to substance 08-11-19 Eyes swell shut;sneezing [facility] (4 sources) Trimethoprim Drug Allergy 09-01-19 25 Unable to urinate [facility] (20 sources) Codeine; Translations: [CODEINE] Drug Allergy 10-26-19 25 Other: See Comments, diaphoresis [facility] (4 sources) Sulfamethoxazole / Trimethoprim; Translations: [SULFAMETHOXAZOLE-T RIMETHOPRIM] Drug Allergy 12-18-19 17 [facility] Repository (1 source) Pollen; Translations: [Pollen] Propensity to adverse reactions (disorder) [facility] Repository Medications Current Medications Medication Drug Class(es) Dates Sig (Normalized) Sig (Original) acetaminophen 500 mg oral capsule (20 sources) take 2 capsules by mouth every six hours as needed Acetaminophen 500 mg cap Take 1,000 mg by mouth four times a day as needed for pain. Active take 1 tablet by bandar th every six hours as needed for pain acetaminophen (TYLENOL EXTRA STRENGTH) 5 00 mg tablet Take 1 tablet (500 mg total) by mouth every 6 (six) hours as needed for pain. Active take 6 capsules by mouth once da see Acetaminophen 500 mg cap Take 500 mg by mouth once daily. Takes aout 6 a day Active albuterol 0.83 mg/ml inhalation solution (20 sources) beta2-Adrenergic Agonist Start: 12-05-2024 take 2.5 mg by inhalation every six hours as needed albuterol (PROVENTIL,VENTOLIN) 2.5 mg /3 mL (0.083 %) nebulizer solution Inhale 3 mL (2.5 mg total) by nebulization every 6 (six) hours as needed. 12/05/2024 Active Start: 09-13-2024 take 2 puff(s) by in halation every four hours as needed for wheezing albuterol HFA (PROVENTIL HFA, VENTOLIN HFA) 90 mcg/actuation inhaler Inhale 2 puffs as instructed every 4 hours as needed for wheezing/shortness of breath. 09/13/2024 Active Start: 09-13-2024 End: 11-15-2024 take 1 puff(s) by inhalation every four hours as needed albuterol HFA (PROVENTIL HFA, VENTOLIN HFA) 90 mcg/actuation inhaler INHALE 1 PUFF INTO THE LUNGS EVERY 4 HOURS NEEDED 09/13/2024 11/15/2024 Discontinued (Course of therapy completed) Ascorbic Acid (5 sources) Vitamin C Start: 04-18-2019 Vitamin C Leonid y, Refills(s) 0 Start Date: 04/18/19 Status: Ordered Start: 08-11-2018 take 1 capsule by [facility] once daily Ascorbic Acid (Vitamin C) (Vitamin C) 500 mg Capsule, Extended Release Active 500 MG PO Daily August 11, 2018 1:00am benzonatate 200 mg oral capsule (20 sources) Non-narcotic Antitussive Start: 10-23-2024 take 1 capsule by mouth three times daily as needed for cough Benzonatate 200 mg capsule Indications: cough Take 200 mg by mouth three times a day as needed for cough. 10/23/2024 Active Start: 08-31-2024 take 1 capsule by [facility] three times daily Benzonatate 100 mg capsule Active 100 MG PO Three times daily 01 01August 31, 2024 12:00am 12 hr dextromethorphan hydrobromide 30 mg / guaiFENesin 600 mg extended release oral tablet (15 sources) Uncompetitive M-rqifrx-P-aspartate Receptor Antagonist, Sigma-1 Agonist take 2 tablets by mouth twice daily dextromethorphan-guaiFENesin (MUCINEX DM) 30-600 mg per tablet Take 2 tablets by mouth two times a day. Active take 2 tablets by [facility] every twelve hours in the morning dextromethorphan-guaiFENesin (MUCINEX DM ) 30-600 mg tablet extended release 12 hr Take 2 tablets by mouth in the morning and 2 tablets before bedtime. Active diphenhydrAMINE hydrochloride 25 mg oral capsule (16 sources) Histamine-1 Receptor Antagonist Start: 12-05-2024 diphenhydrAMINE (BenadryL) 25 mg capsule Take 1 capsule (25 mg total) by mouth. 12/05/2024 Active End: 11-27-2024 diphenhydramine HCl (ALLERGY MEDICATION ORAL) Take by mouth once daily. 11/27/2024 Discontinued (Discontinued by Patient) diphenhydramine HCl (ALLERGY MEDICATION ORAL) Take by mouth once daily. Suspended diphenhydramine HCl (ALLERGY MEDICATION ORAL) Take by mouth once daily. Active fluticasone propionate 0.05 mg/actuat metered dose nasal spray (20 sources) Corticosteroid Start: 12-14-2017 Fluticasone Pr opionate (Flonase Allergy Relief) 50 mcg/actuation [place],Suspension Active 1 SPRAYS INTRANASAL Daily as needed for Allergy Symptoms December 14, 2017 12:00am fluticasone prop ionate (FLONASE NASAL) Use in the nose once daily. Suspended fluticasone prop ionate (FLONASE NASAL) Use in the nose once daily. Active HERBAL DRUGS MISC (14 sources) HERBAL DRUGS MIS C 1 capsule once daily. [place]/Soursop Active iv contrast (will be provided with radiology test) (1 source) Start: 10-27-2024 End: 10-28-2024 inject 1 dose intravenously once iv contrast (will be provided with radiology [...] MR contrast administration guidelines link 1 each 10/27/2024 10/28/2024 Active loratadine 10 mg oral tablet (20 sources) Start: 12-14-2017 take 1 tablet by mouth once daily in the morning Loratadine 10 mg Tablet Active 10 MG PO Every morning December 14, 2017 12:00am take 1 tablet by mouth once leonid y loratadine 10 mg dissolvable tablet Take 10 mg by mouth once daily. Active meclizine hydrochloride 25 mg oral tablet (20 sources) Antiemetic Start: 11-08-2024 take 1 tablet by mouth three times daily as needed meclizine (ANTIVERT) 25 mg tab Indications: vertigo Take 25 mg by mouth three times a day as needed. 11/08/2024 Active meclizine (ANTIV ERT) 25 mg tablet Chew 1 tablet (25 mg total) and swallow 3 (three) times a day as needed for dizziness. Active meloxicam 7.5 mg oral tablet (20 sources) Nonsteroidal Anti-inflammatory Drug Start: 06-29-2023 End: 11-27-2024 take 1 tablet by mouth once daily Meloxicam 7.5 mg tablet Active 7.5 MG PO Daily August 31, 2024 12:00am MEN'S MULTI-VITAMIN ORAL (20 sources) MEN'S MULTI-VITAMIN ORAL Take by mouth once daily. Suspended MEN'S MULTI-JOE MIN ORAL Take by mouth once daily. Active 24 hr metoprolol succinate 50 mg extended release oral tablet (20 sources) beta-Adrenergic Angella Start: 09-08-2024 take 1 tablet by mouth once daily Metoprolol Succinate 50 mg tablet extended release 24 hr Active 50 MG PO Daily September 08, 2024 11:35am Start: 08-31-2024 End: 09-08-2024 take 1 tablet by mouth every twenty-four hours Metoprolol Succinate 50 mg tablet extended release 24 hr Discontinued MG PO August 31, 2024 12:00am September 08, 2024 11:36am Start: 06-29-2023 take 1 tablet by bandar th every twenty-four hours metoprolol succinate ER (TOPROL XL) 25 mg 24 hr tablet Take 25 mg by mouth. 06/29/2023 Active Start: 06-29-2023 take 1 tablet by bandar th twice daily metoprolol 25 mg ER Tab 25 mg = 1 tab(s), Oral, BID, Refills(s) 0 Start Date: 06/29/23 Status: Ordered Multi Vitamin+ (1 source) Start: 08-15-2019 Multi Vitamin+ Refill(s) 0 Start Date: 08/15/19 Status: Ordered multivit-min/folic/ vit K/lycop (MEN'S 50 PLUS MULTIVITAMIN ORAL) (7 sources) multivit-min/fol ic /vit K/lycop (MEN'S 50 PLUS MULTIVITAMIN ORAL) Take by mouth in the morning. Active Multivitamin Tablet (4 sources) Start: 05-17-2019 take 1 tablet by mouth once daily Multivitamin Tablet Active 1 TAB PO Daily May 17, 2019 1:00am ondansetron 8 mg oral tablet (15 sources) Serotonin-3 Receptor Antagonist Start: 11-27-2024 take 1 tablet by mouth every eight hours as needed ondansetron (ZOFRAN) 8 mg tablet Take 1 tablet by mouth every 8 hours as needed for nausea/vomiting. 90 tablet 2 12/08/2024 9:26 AM EDT 11/27/2024 Active oseltamivir 75 mg oral capsule (2 sources) Neuraminidase Inhibitor Start: 09-08-2024 take 1 capsule by mouth twice daily Oseltamivir (Tamiflu) 75 mg capsule Active 75 MG PO Twice daily 10 September 08, 2024 12:00am OTC PRODUCT (14 sources) OTC PRODUCT THC 5mg TID - appetite, pain, energy Active PEPSIN/BLESSING/OXBILE/P ANCREAT/BET (ZJGRUA-OSQ-EX PAAF-JAZ-FEK-PAP ORAL) (2 sources) PEPSIN/BLESSING/OXBIL E/ PANCREAT/BET (CTAKAJ-XJX-MD IQHV-DKM-JFR-PAP ORAL) Take by mouth. Active predniSONE 20 mg oral tablet (20 sources) Start: 12-05-2024 predniSONE (DELTASONE) 20 mg tablet Take 1 tablet (20 mg total) by mouth. 12/05/2024 Active Start: 10-23-2024 End: 11-27-2024 predniSONE (DELTASONE) 20 mg tablet 10/23/2024 11/27/2024 Discontinued (Course of therapy completed) Start: 08-31-2024 End: 09-08-2024 take 1 tablet by mouth twice daily Prednisone 20 mg tablet Discontinued 20 MG PO Twice daily 10 August 31, 2024 12:00am September 08, 2024 11:35am End: 11-22-2024 take 1 tablet by mouth in the morning predniSONE (DELTASONE) 10 mg tablet Take 1 tablet (10 mg total) by mouth in the morning. Tapered dose. 11/22/2024 Discontinued (Therapy completed) prochlorperazine 10 mg oral tablet (15 sources) Phenothiazine Start: 11-27-2024 take 1 tablet by mouth every six hours as needed prochlorperazine (COMPAZINE) 10 mg tablet Take 1 tablet by mouth every 6 hours as needed. 100 tablet 2 12/08/2024 9:26 AM EDT 11/27/2024 Active Turmeric extract (4 sources) Start: 08-31-2024 Turmeric 400 mg capsule Active MG PO August 31, 2024 12:00am varenicline 1 mg oral tablet (2 sources) Partial Cholinergic Nicotinic Agonist Start: 03-31-2017 take 1 tablet by mouth twice daily varenicline (CHANTIX CONTINUING MONTH BOX) 1 mg tablet Take 1 tablet (1 mg total) by mouth 2 (two) times a day. Take with full glass of water. 56 tablet 3 03/31/2017 Active Zinc (5 sources) Start: 04-18-2019 take 1 mg by mouth once daily Zinc mg, Oral, Daily, Refills(s) 0 Start Date: 04/18/19 Status: Ordered Start: 12-14-2017 End: 08-31-2024 take 1 tablet by mouth once daily in the morning Zinc 50 mg Tablet Discontinued 50 MG PO Every morning December 14, 2017 12:00am August 31, 2024 9:50am Completed/Discontinued Medications Medication Drug Class(es) Dates Sig (Normalized) Sig (Original) ALBUTEROL, REFILL, INHALATION (1 source) Start: 10-13-2024 End: 11-27-2024 ALBUTEROL, REFILL, INHALATION Refills(s) 0 10/13/2024 11/27/2024 Discontinued (Erroneous entry) allopurinol 300 mg oral tablet (4 sources) Xanthine Oxidase Inhibitor Start: 05-17-2019 End: 08-31-2024 take 1 tablet by mouth once daily Allopurinol 300 mg tablet Discontinued 300 MG PO Daily May 17, 2019 1:00am August 31, 2024 9:50am amoxicillin 875 mg / clavulanate 125 mg oral tablet (4 sources) Penicillin-class Antibacterial Start: 10-23-2024 End: 11-15-2024 take 1 tablet by mouth every twelve hours amoxicillin-clavulan ate potassium (AUGMENTIN) 875-125 mg per tablet Take 1 tablet by mouth every 12 hours. 10/23/2024 11/15/2024 Discontinued (Course of therapy completed) aspirin 81 mg delayed release oral tablet (4 sources) Platelet Aggregation Inhibitor, Nonsteroidal Anti-inflammatory Drug Start: 12-14-2017 End: 08-31-2024 Aspirin (Jez Low Dose Aspirin) 81 mg Tablet,Delayed Release (Dr/Ec) Discontinued 81 MG PO Every morning December 14, 2017 12:00am August 31, 2024 9:50am cetirizine hydrochloride 10 mg oral tablet (4 sources) Histamine-1 Receptor Antagonist End: 11-22-2024 take 1 tablet by mouth in the morning cetirizine (ZyrTEC) 10 mg tablet Take 1 tablet (10 mg total) by mouth in the morning. 11/22/2024 Discontinued (Therapy completed) chondroitin sulfate a sodium 600 mg / glucosamine sulfate 750 mg oral tablet (4 sources) Start: 12-14-2017 End: 08-31-2024 take 1 tablet by mouth once daily in the morning Glucosamine-Chondroi tn Sulf.Na (Glucosamine-Chondro itin 3x) 750-600 mg Tablet Discontinued 1 TAB PO Every morning December 14, 2017 12:00am August 31, 2024 9:50am ciprofloxacin 500 mg oral tablet (4 sources) Quinolone Antimicrobial Start: 05-18-2019 End: 08-31-2024 take 1 tablet by mouth every twelve hours Ciprofloxacin Hcl 500 mg tablet Discontinued 500 MG PO Q12H May 18, 2019 1:00am August 31, 2024 9:41am Complete Men 50 Plus (4 sources) Start: 12-14-2017 End: 05-17-2019 take 1 tablet by mouth once daily in the morning Complete Men 50 Plus Discontinued 1 TAB PO Every morning December 14, 2017 12:00am May 17, 2019 9:48am cyclobenzaprine hydrochloride 10 mg oral tablet (17 sources) Muscle Relaxant Start: 10-23-2024 End: 11-27-2024 take 1 tablet by mouth every twenty-four hours as needed cyclobenzaprine (FLEXERIL) 10 mg tablet Take 10 mg by mouth at bedtime as needed. 10/23/2024 11/27/2024 Discontinued (Discontinued by another Health Care Provider) doxycycline hyclate 100 mg oral capsule (11 sources) Tetracycline-class Drug Start: 11-23-2024 End: 12-07-2024 doxycycline (VIBRAMYCIN) 100 mg capsule Take 1 capsule (100 mg total) by mouth. 11/23/2024 12/07/2024 Discontinued (Therapy completed) ibuprofen 800 mg oral tablet (11 sources) Nonsteroidal Anti-inflammatory Drug Start: 08-11-2018 End: 05-01-2019 take 1 tablet by mouth once daily Ibuprofen 800 mg Tablet Discontinued 800 MG PO Daily August 11, 2018 1:00am May 01, 2019 4:58pm End: 11-15-2024 take 1 tablet by mouth every six hours as needed ibuprofen (MOTRIN) 200 mg tablet Take 200 mg by mouth every 6 hours as needed. 11/15/2024 Discontinued levoFLOXacin 750 mg oral tablet (16 sources) Quinolone Antimicrobial Start: 11-08-2024 End: 11-27-2024 levoFLOXacin (LEVAQUIN) 750 mg tablet Take 750 mg by mouth. 11/08/2024 11/27/2024 Discontinued (Discontinued by another Health Care Provider) lidocaine hydrochloride 40 mg/ml topical cream (4 sources) Antiarrhythmic, Amide Local Anesthetic Start: 08-11-2018 End: 08-31-2024 Lidocaine Hcl (Aspercreme (Lidocaine Hcl)) 4 % Cream Discontinued 1 APPLIC TOPICAL Daily as needed for Joint pain August 11, 2018 1:00am August 31, 2024 9:50am NON FORMULARY (4 sources) End: 12-07-2024 NON FORMULARY Med Name: MARINGA Immunity support bid 12/07/2024 Discontinued (Therapy completed) NON FORMULARY Me d Name: MARINGA Immunity support bid Active tamsulosin hydrochloride 0.4 mg oral capsule (11 sources) alpha-Adrenergic Angella Start: 06-23-2017 End: 11-15-2024 tamsulosin (FLOMAX) 0.4 mg Take 0.4 mg by mouth. 06/23/2017 11/15/2024 Discontinued Start: 06-23-2017 End: 09-08-2024 tamsulosin (FLOMAX) 0.4 mg T lawrence 0.4 mg by mouth. 06/23/2017 Active Problems Active Problems Problem Classification Problem Date Documented Date Episodic/Chronic Abdominal pain (2 sources) Abdominal pain; Translations: [Unspecified abdominal pain] Onset: 06-29-2023 Episodic Calculus of urinary tract (8 sources) Calculus of kidney; Translations: [Personal history of urinary calculi] Onset: 06-21-2022 Episodic Cancer of bronchus; lung (20 sources) Malignant neoplasm of lower lobe of right lung; Translations: [Malignant neoplasm of lower lobe, right bronchus or lung] Onset: 11-09-2024 10-27-2024 Chronic Cardiac dysrhythmias (1 source) Bradycardia, unspecified; Translations: [Bradycardia, unspecified] Onset: 11-08-2024 Episodic Conduction disorders (20 sources) Atrioventricular block; Translations: [Unspecified atrioventricular block] Onset: 11-09-2024 11-09-2024 Chronic Genitourinary symptoms and ill-defined conditions (2 sources) Microscopic hematuria; Translations: [Other microscopic hematuria] Onset: 06-29-2023 Episodic Gout and other crystal arthropathies (7 sources) Gout; Translations: [Gout, unspecified] Onset: 11-09-2024 01-18-2019 Chronic Hyperplasia of prostate (12 sources) Benign prostatic hyperplasia with lower urinary tract symptoms; Translations: [Benign prostatic hypertrophy with outflow obstruction] Onset: 06-17-2022 Chronic Osteoarthritis (7 sources) Arthritis; Translations: [Unspecified osteoarthritis, unspecified site] Onset: 11-09-2024 01-18-2019 Chronic Other diseases of kidney and ureters (1 source) Acquired renal cyst without neoplastic change; Translations: [Cyst of kidney, acquired] Onset: 06-29-2023 Episodic Other diseases of kidney and ureters (1 source) Cyst of kidney 06-23-2022 Episodic Other injuries and conditions due to external causes (1 source) Injury of head 01-18-2019 Episodic Other nervous system disorders (20 sources) Lesion of ulnar nerve; Translations: [Lesion of ulnar nerve, unspecified upper limb] Onset: 03-25-2006 10-10-2024 Chronic Other nervous system disorders (20 sources) Carpal tunnel syndrome; Translations: [Carpal tunnel syndrome, unspecified upper limb] Onset: 03-25-2006 10-10-2024 Chronic Other screening for suspected conditions (not mental disorders or infectious disease) (1 source) Encounter for screening for malignant neoplasm of prostate; Translations: [Screening for malignant neoplasm done] Onset: 06-29-2023 Episodic Other upper respiratory disease (1 source) Obstruction of bronchus; Translations: [Other diseases of bronchus, not elsewhere classified] 11-15-2024 Episodic Other upper respiratory disease (2 sources) Other diseases of bronchus, not elsewhere classified; Translations: [Bronchiolar disease] Onset: 11-15-2024 Episodic Pneumonia (except that caused by tuberculosis or sexually transmitted disease) (1 source) Pneumonia due to methicillin resistant Staphylococcus aureus; Translations: [Pneumonia due to Methicillin resistant Staphylococcus aureus] 11-23-2024 Episodic Residual codes; unclassified (1 source) H/O: anticoagulant therapy 04-18-2019 Episodic Residual codes; unclassified (1 source) Pain, unspecified; Translations: [Pain, unspecified] Onset: 11-15-2024 Episodic Screening and history of mental health and substance abuse codes (1 source) Ex-smoker 04-18-2019 Episodic Syncope (8 sources) Syncope; Translations: [Syncope and collapse] Onset: 11-08-2024 11-08-2024 Episodic Unclassified (1 source) Patient encounter status 06-29-2023 Unclassified (1 source) Slow Heart Rate Onset: 11-08-2024 Unclassified (1 source) low heart rate Onset: 11-08-2024 Unclassified (1 source) New Patient Onset: 11-08-2024 Unclassified (1 source) Device Check Onset: 11-22-2024 Unclassified (1 source) AV block Onset: 11-09-2024 Unclassified (1 source) Lung Cancer Onset: 11-17-2024 Past or Other Problems Problem Classification Problem Date Documented Da te Episodic/Chronic Mood disorders (8 sources) Mood disorders Onset: 12-17-2016 Resolved: 11-09-2024 12-17-2016 Other connective tissue disease (20 sources) Calcific tendinitis of shoulder; Translations: [Calcific tendinitis of unspecified shoulder] Onset: 03-25-2006 10-10-2024 Episodic Other connective tissue disease (20 sources) Soft tissue lesion of shoulder region; Translations: [Bursopathy, unspecified] Onset: 03-25-2006 10-10-2024 Episodic Other diseases of kidney and ureters (1 source) Cyst of kidney, acquired; Translations: [CYST OF KIDNEY ACQUIRED] Onset: 07-06-2022 Episodic Results Test Name Value Interpretation Reference Range Facility [facility] 12-12-2024 [facility] Telephone (HEMAS[facility]) -------- JATIN KOCH ([id number]) 1960 M Date Time Provider Department 12/12/24 TIFFANIE HARGROVE HEMKIANA During your visit today, we recorded the following information about you: Tiffanie Hargrove RN 12/12/2024 4:29 PM Signed Call received from pt's stating they would like to discuss physical therapy as an option for pt when he is here on Wednesday seeing Dr Wilkerson. Pt will need a face to face encounter for this order. Tiffanie Hargrove RN Allergies As of Date: 12/12/2024 Noted Allergy Reaction SULFAMETHOXAZOLE 10/25/2024 14 - Other: See Comments 16 - Unknown Comments: Urinary retention SULFAMETHOXAZOLE-TRIMETH OPRIM 12/17/2016 14 - Other: See Comments CODEINE 10/25/2024 14 - Other: See Comments Comments: sweats Date Reviewed: 11/20/2024 Reviewed by: Rachel Parekh, PRITI - Fully Assessed Reason for Visit: Care Coordination [8914] Cmt: P.T. Prescriptions as of 12/12/2024 - prochlorperazine (COMPAZINE) 10 mg tablet Take 1 tablet by mouth every 6 hours as needed. - ondansetron (ZOFRAN) 8 mg tablet Take 1 tablet by mouth every 8 hours as needed for nausea/vomiting. - HERBAL DRUGS MISC 1 capsule once daily. [employer] - OTC PRODUCT THC 5mg TID - appetite, pain, energy - loratadine 10 mg dissolvable tablet Take 10 mg by mouth once daily. - albuterol HFA (PROVENTIL HFA, VENTOLIN HFA) 90 mcg/actuation inhaler Inhale 2 puffs as instructed every 4 hours as needed for wheezing/shortness of breath. - dextromethorphan-guaiFEN esin (MUCINEX DM) 30-600 mg per tablet Take 2 tablets by mouth two times a day. - meclizine (ANTIVERT) 25 mg tab Take 25 mg by mouth three times a day as needed. - fluticasone propionate (FLONASE NASAL) Use in the nose once daily. - Acetaminophen 500 mg cap Take 1,000 mg by mouth four times a day as needed for pain. - MEN'S MULTI-VITAMIN ORAL Take by mouth once daily. - Benzonatate 200 mg capsule Take 200 mg by mouth three times a day as needed for cough. - metoprolol succinate ER (TOPROL XL) 25 mg 24 hr tablet Take 25 mg by mouth. Problem List As Of Date 12/12/2024 Noted Resolved CALCIF TENDINITIS LAKEISHA [M75.30] 03/25/2006 ROTATOR CUFF SYND NOS [M71.9, M67.919] 03/25/2006 ULNAR NERVE LESION [G56.20] 03/25/2006 CARPAL TUNNEL SYNDROME [G56.00] 03/25/2006 Malignant neoplasm of lower lobe of right lung *11/17/2024 Encounter Status:Closed by TIFFANIE HARGROVE on 12/12/24 [facility] 12-08-2024 [facility] Nurse Visit (CORAL) -------- JATIN KOCH ([id number]) 1960 M Date Time Provider Department 12/08/24 10:00 AM NURSE HAYES MONCADA During your visit today, we recorded the following information about you: Allergies As of Date: 12/08/2024 Noted Allergy Reaction SULFAMETHOXAZOLE 10/25/2024 14 - Other: See Comments 16 - Unknown Comments: Urinary retention SULFAMETHOXAZOLE-TRIMETH OPRIM 12/17/2016 14 - Other: See Comments CODEINE 10/25/2024 14 - Other: See Comments Comments: sweats Date Reviewed: 11/20/2024 Reviewed by: Rachel Parekh RN - Fully Assessed Primary Visit Diagnosis:Malignant neoplasm of lower lobe of right lung (HCC) [C34.31] Prescriptions as of 12/08/2024 - prochlorperazine (COMPAZINE) 10 mg tablet Take 1 tablet by mouth every 6 hours as needed. - ondansetron (ZOFRAN) 8 mg tablet Take 1 tablet by mouth every 8 hours as needed for nausea/vomiting. - HERBAL DRUGS MISC 1 capsule once daily. [employer] - OTC PRODUCT THC 5mg TID - appetite, pain, energy - loratadine 10 mg dissolvable tablet Take 10 mg by mouth once daily. - albuterol HFA (PROVENTIL HFA, VENTOLIN HFA) 90 mcg/actuation inhaler Inhale 2 puffs as instructed every 4 hours as needed for wheezing/shortness of breath. - dextromethorphan-guaiFEN esin (MUCINEX DM) 30-600 mg per tablet Take 2 tablets by mouth two times a day. - meclizine (ANTIVERT) 25 mg tab Take 25 mg by mouth three times a day as needed. - fluticasone propionate (FLONASE NASAL) Use in the nose once daily. - Acetaminophen 500 mg cap Take 1,000 mg by mouth four times a day as needed for pain. - MEN'S MULTI-VITAMIN ORAL Take by mouth once daily. - Benzonatate 200 mg capsule Take 200 mg by mouth three times a day as needed for cough. - metoprolol succinate ER (TOPROL XL) 25 mg 24 hr tablet Take 25 mg by mouth. Problem List As Of Date 12/08/2024 Noted Resolved CALCIF TENDINITIS SHLDER [M75.30] 03/25/2006 ROTATOR CUFF SYND NOS [M71.9, M67.919] 03/25/2006 ULNAR NERVE LESION [G56.20] 03/25/2006 CARPAL TUNNEL SYNDROME [G56.00] 03/25/2006 Malignant neoplasm of lower lobe of right lung *11/17/2024 Encounter Status:Closed by RICHARDSON CANTU [facility] Telephone (HEMASA) -------- JATIN KOCH ([id number]) 1960 M Date Time Provider Department 12/08/24 TIFFANIE HARGROVE HEMASA During your visit today, we recorded the following information about you: Tiffanie Hargrove RN 12/08/2024 4:13 PM Signed Voicemail received from pt's stating she has questions regarding a prior auth that needs to be done for [facility] testing. Call placed to pt's and message left requesting her to call our office back Tiffanie Hargrove RN Allergies As of Date: 12/08/2024 Noted Allergy Reaction SULFAMETHOXAZOLE 10/25/2024 14 - Other: See Comments 16 - Unknown Comments: Urinary retention SULFAMETHOXAZOLE-TRIMETH OPRIM 12/17/2016 14 - Other: See Comments CODEINE 10/25/2024 14 - Other: See Comments Comments: sweats Date Reviewed: 11/20/2024 Reviewed by: Rachel Parekh RN - Fully Assessed Reason for Visit: Care Coordination [3491] Cmt: [facility] testing question Prescriptions as of 12/11/2024 - prochlorperazine (COMPAZINE) 10 mg tablet Take 1 tablet by mouth every 6 hours as needed. - ondansetron (ZOFRAN) 8 mg tablet Take 1 tablet by mouth every 8 hours as needed for nausea/vomiting. - HERBAL DRUGS MISC 1 capsule once daily. [employer] - OTC PRODUCT THC 5mg TID - appetite, pain, energy - loratadine 10 mg dissolvable tablet Take 10 mg by mouth once daily. - albuterol HFA (PROVENTIL HFA, VENTOLIN HFA) 90 mcg/actuation inhaler Inhale 2 puffs as instructed every 4 hours as needed for wheezing/shortness of breath. - dextromethorphan-guaiFEN esin (MUCINEX DM) 30-600 mg per tablet Take 2 tablets by mouth two times a day. - meclizine (ANTIVERT) 25 mg tab Take 25 mg by mouth three times a day as needed. - fluticasone propionate (FLONASE NASAL) Use in the nose once daily. - Acetaminophen 500 mg cap Take 1,000 mg by mouth four times a day as needed for pain. - MEN'S MULTI-VITAMIN ORAL Take by mouth once daily. - Benzonatate 200 mg capsule Take 200 mg by mouth three times a day as needed for cough. - metoprolol succinate ER (TOPROL XL) 25 mg 24 hr tablet Take 25 mg by mouth. Problem List As Of Date 12/08/2024 Noted Resolved CALCIF TENDINITIS SHLDER [M75.30] 03/25/2006 ROTATOR CUFF SYND NOS [M71.9, M67.919] 03/25/2006 ULNAR NERVE LESION [G56.20] 03/25/2006 CARPAL TUNNEL SYNDROME [G56.00] 03/25/2006 Malignant neoplasm of lower lobe of right lung *11/17/2024 Encounter Status:Closed by TIFFANIE HARGROVE on 12/11/24 [facility] Telephone (HEMASA) -------- JATIN KOCH ([id number]) 1960 M Date Time Provider Department 12/08/24 TIFFANIE HARGROVE During your visit today, we recorded the following information about you: Tiffanie Hargrove, PRITI 12/08/2024 10:08 AM Signed Pt's CT brain done here on 12/07 recommends brain MRI with and without. Pt had a brain MRI done on 11/02 at [facility]. Does this need ot be repeated or no? Please advise PRITI Jenkins Adarsh, MD 12/08/2024 10:11 AM Signed No need to repeat now. Thank you. Allergies As of Date: 12/08/2024 Noted Allergy Reaction SULFAMETHOXAZOLE 10/25/2024 14 - Other: See Comments 16 - Unknown Comments: Urinary retention SULFAMETHOXAZOLE-TRIMETH OPRIM 12/17/2016 14 - Other: See Comments CODEINE 10/25/2024 14 - Other: See Comments Comments: sweats Date Reviewed: 11/20/2024 Reviewed by: Rachel Parekh RN - Fully Assessed Reason for Visit: Care Coordination [4703] Cmt: results Prescriptions as of 12/08/2024 - prochlorperazine (COMPAZINE) 10 mg tablet Take 1 tablet by mouth every 6 hours as needed. - ondansetron (ZOFRAN) 8 mg tablet Take 1 tablet by mouth every 8 hours as needed for nausea/vomiting. - HERBAL DRUGS MISC 1 capsule once daily. [employer] - OTC PRODUCT THC 5mg TID - appetite, pain, energy - loratadine 10 mg dissolvable tablet Take 10 mg by mouth once daily. - albuterol HFA (PROVENTIL HFA, VENTOLIN HFA) 90 mcg/actuation inhaler Inhale 2 puffs as instructed every 4 hours as needed for wheezing/shortness of breath. - dextromethorphan-guaiFEN esin (MUCINEX DM) 30-600 mg per tablet Take 2 tablets by mouth two times a day. - meclizine (ANTIVERT) 25 mg tab Take 25 mg by mouth three times a day as needed. - fluticasone propionate (FLONASE NASAL) Use in the nose once daily. - Acetaminophen 500 mg cap Take 1,000 mg by mouth four times a day as needed for pain. - MEN'S MULTI-VITAMIN ORAL Take by mouth once daily. - Benzonatate 200 mg capsule Take 200 mg by mouth three times a day as needed for cough. - metoprolol succinate ER (TOPROL XL) 25 mg 24 hr tablet Take 25 mg by mouth. Problem List As Of Date 12/08/2024 Noted Resolved CALCIF TENDINITIS SHLDER [M75.30] 03/25/2006 ROTATOR CUFF SYND NOS [M71.9, M67.919] 03/25/2006 ULNAR NERVE LESION [G56.20] 03/25/2006 CARPAL TUNNEL SYNDROME [G56.00] 03/25/2006 Malignant neoplasm of lower lobe of right lung *11/17/2024 Encounter Status:Closed by LU HARGROVEIsaac Chacon on 12/08/24 [facility] [address] BRAIN WO IVCONon 12-08-19 CT BRAIN WO IVCON * * *Final Report* * * DATE OF EXAM: Dec 07 2024 8:32AM [facility] 0504 - CT BRAIN WO IVCON / PROCEDURE REASON: Malignant neoplasm of lower lobe of right lung (HCC) * * * * Physician Interpretation * * * * RESULT: EXAMINATION: CT BRAIN WO IVCON CLINICAL HISTORY: Lung cancer, rule out metastases TECHNIQUE: Serial axial images without IV contrast were obtained from the vertex to the foramen magnum. MQ: CTBWO_3 CT Radiation dose: Integrated Dose-Length Product (DLP) for this visit = 836 mGy*cm CT Dose Reduction Employed: Automated exposure control (AEC) COMPARISON: None. RESULT: Localizer images: Unremarkable. Post-operative change: None. Acute change: No evidence of an acute infarct or other acute parenchymal process. Hemorrhage: No evidence of acute intracranial hemorrhage. ECASS hemorrhagic transformation score: Not Applicable Mass Lesion / Mass Effect: There is no midline shift or mass effect. There is a punctate 5 to 6 mm focus of hypodensity seen involving the left winnie-Rolandic region (series 2, image 25), of uncertain etiology. Chronic change: None apparent. Parenchyma: There is no significant volume loss. The brain parenchyma is otherwise within normal limits for age. Ventricles: The ventricles are within normal limits of size and configuration for age. Paranasal sinuses and skull base: The visualized paranasal sinuses are grossly clear. The skull base and imaged soft tissues are unremarkable. IMPRESSION: 1. No acute intracranial pathology. 2. Punctate focus of hypodensity involving the left perirolandic region, of indeterminate etiology. Consider brain MRI with and without contrast for further evaluation. Transcribe Date/Time: Dec 07 2024 1:41P Dictated by: SUMMER MAYORGA MD This examination was interpreted and the report reviewed and electronically signed by: SUMMER MAYORGA MD on Dec 07 2024 1:48PM EST Thank you for allowing us to participate in the care of your patient. Should there be any questions regarding this interpretation, please call [phone]. If you are unable to reach us at the number above, please feel free to contact [facility] eRadiology at [phone]. [id number] Normal [facility] CT Head WO contraston 2024 IMPRESSION: 1. No acute intracranial pathology. 2. Punctate focus of hypodensity involving the left perirolandic region, of indeterminate etiology. Consider brain MRI with and without contrast for further evaluation. Transcribe Date/Time: Dec 07 2024 1:41P Dictated by: SUMMER MAYORGA MD This examination was interpreted and the report reviewed and electronically signed by: SUMMER MAYORGA MD on Dec 07 2024 1:48PM EST Thank you for allowing us to participate in the care of your patient. Should there be any questions regarding this interpretation, please call [phone]. If you are unable to reach us at the number above, please feel free to contact [facility]Radiology at [phone]. DIVISION OF RADIOLOGY * * *Final Report* * * DATE OF EXAM: Dec 07 2024 8:32AM [facility] 0504 - CT BRAIN WO IVCON / PROCEDURE REASON: Malignant neoplasm of lower lobe of right lung (HCC) * * * * Physician Interpretation * * * * RESULT: EXAMINATION: CT BRAIN WO IVCON CLINICAL HISTORY: Lung cancer, rule out metastases TECHNIQUE: Serial axial images without IV contrast were obtained from the vertex to the foramen magnum. MQ: CTBWO_3 CT Radiation dose: Integrated Dose-Length Product (DLP) for this visit = 836 mGy*cm CT Dose Reduction Employed: Automated exposure control (AEC) COMPARISON: None. RESULT: Localizer images: Unremarkable. Post-operative change: None. Acute change: No evidence of an acute infarct or other acute parenchymal process. Hemorrhage: No evidence of acute intracranial hemorrhage. ECASS hemorrhagic transformation score: Not Applicable Mass Lesion / Mass Effect: There is no midline shift or mass effect. There is a punctate 5 to 6 mm focus of hypodensity seen involving the left winnie-Rolandic region (series 2, image 25), of uncertain etiology. Chronic change: None apparent. Parenchyma: There is no significant volume loss. The brain parenchyma is otherwise within normal limits for age. Ventricles: The ventricles are within normal limits of size and configuration for age. Paranasal sinuses and skull base: The visualized paranasal sinuses are grossly clear. The skull base and imaged soft tissues are unremarkable. DIVISION OF RADIOLOGY Provider, [facility] - 12/07/2024 * * *Final Report* * * DATE OF EXAM: Dec 07 2024 8:32AM [facility] 0504 - CT BRAIN WO IVCON / PROCEDURE REASON: Malignant neoplasm of lower lobe of right lung (HCC) * * * * Physician Interpretation * * * * RESULT: EXAMINATION: CT BRAIN WO IVCON CLINICAL HISTORY: Lung cancer, rule out metastases TECHNIQUE: Serial axial images without IV contrast were obtained from the vertex to the foramen magnum. MQ: CTBWO_3 CT Radiation dose: Integrated Dose-Length Product (DLP) for this visit = 836 mGy*cm CT Dose Reduction Employed: Automated exposure control (AEC) COMPARISON: None. RESULT: Localizer images: Unremarkable. Post-operative change: None. Acute change: No evidence of an acute infarct or other acute parenchymal process. Hemorrhage: No evidence of acute intracranial hemorrhage. ECASS hemorrhagic transformation score: Not Applicable Mass Lesion / Mass Effect: There is no midline shift or mass effect. There is a punctate 5 to 6 mm focus of hypodensity seen involving the left winnie-Rolandic region (series 2, image 25), of uncertain etiology. Chronic change: None apparent. Parenchyma: There is no significant volume loss. The brain parenchyma is otherwise within normal limits for age. Ventricles: The ventricles are within normal limits of size and configuration for age. Paranasal sinuses and skull base: The visualized paranasal sinuses are grossly clear. The skull base and imaged soft tissues are unremarkable. IMPRESSION IMPRESSION: 1. No acute intracranial pathology. 2. Punctate focus of hypodensity involving the left perirolandic region, of indeterminate etiology. Consider brain MRI with and without contrast for further evaluation. Transcribe Date/Time: Dec 07 2024 1:41P Dictated by: SUMMER MAYORGA MD This examination was interpreted and the report reviewed and electronically signed by: SUMMER MAYORGA MD on Dec 07 2024 1:48PM EST Thank you for allowing us to participate in the care of your patient. Should there be any questions regarding this interpretation, please call [phone]. If you are unable to reach us at the number above, please feel free to contact [facility]Radiology at [phone]. [facility] Radiology Study observation (narrative) [facility] CT Head WO contrastOrdered B y: [facility] Provider on 12-07-2024 [facility] Ambulatory Visit Summaryon 0 12-05-2024 Ambulatory Visit Summary Ambulatory Visit Summary JATIN KOCH II :1960 Visit Date:12/05/2024 Ambulatory Visit Instructions Your Diagnosis Non-smoker BMI 28.0-28.9,adult Tests Performed Chest XR 2 Views -- Results Pending -- Please visit your patient portal for your results or contact your primary care physician. Your Care Team Attending Physician - Carlos Sethi Primary Care Physician - Carlos Sethi This Is Your Medications List albuterol (Albuterol (Eqv-Proventil HFA) 90 mcg/inh inhalation aerosol) benzonatate (benzonatate 200 mg oral capsule) cyclobenzaprine (cyclobenzaprine 10 mg Tab) diphenhydrAMINE (Benadryl 25 mg Cap) levofloxacin (levofloxacin 750 mg Tab) meclizine (meclizine 25 mg Tab) meloxicam (meloxicam 7.5 mg Tab) metoprolol (metoprolol succinate 25 mg ER Tab) multivitamin (Multi Vitamin+) predniSONE (predniSONE 10 mg Tab) Procedures Performed TURP - Transurethral resection of prostate (05/17/2019), Cystoscopy (12/08/2018), Colonoscopy, Tonsillectomy. Discharge Vitals Heart Rate (Peripheral) 96 Blood Pressure 112/58 Height 172 cm Height 68 in Weight 84.6 kg Weight 186.511 lb BMI 28.6 What to do next Scheduled Follow-Up Appointments Wednesday 9:40 AM EDT With: SANDRA PALMA, VICTORIA Flores Where: [facility] [address] [address]- Wednesday 8:20 AM EDT With: Carlos Sethi Where: [address] [address]- Medications What How Much When Instructions Unchanged albuterol (Albuterol (Eqv-Proventil HFA) 90 mcg/ inh inhalation aerosol) Unchanged benzonatate (benzonatate 200 mg oral capsule) TAKE 1 CAPSULE BY MOUTH THREE TIMES A DAY NEEDED FOR COUGH Unchanged cyclobenzaprine (cyclobenzaprine 10 mg Tab) TAKE 1 TABLET BY MOUTH EVERY DAY AT BEDTIME NEEDED FOR 30 DAYS Unchanged diphenhydrAMINE (Benadryl 25 mg Cap) 1 Capsules By Mouth Once Unchanged levofloxacin (levofloxacin 750 mg Tab) TAKE 1 TABLET BY MOUTH EVERY DAY FOR 14 DAYS Unchanged meclizine (meclizine 25 mg Tab) TAKE 1 TABLET BY MOUTH THREE TIMES A DAY Unchanged meloxicam (meloxicam 7.5 mg Tab) 1 Tablets By Mouth Every day Unchanged metoprolol (metoprolol succinate 25 mg ER Tab) 1 Tablets By Mouth Every day Unchanged multivitamin (Multi Vitamin+) Unchanged predniSONE (predniSONE 10 mg Tab) By Mouth As Directed 6 tabs for 2 days,5 tabs for 2 days,4 tabs for 2 days,3 tabs for 2 days,2 tabs for 2 days,1 tab for 2 days Allergies codeine (Sweating) Bactrim (Unable to void) Pollen (Watery eye, Eye swelling) sulfamethoxazole (Unknown, Unable to urinate) Problems Ongoing - Any problem that you are currently receiving treatment for. Arthritis BMI 31.0-31.9,adult BPH with urinary obstruction Encounter to establish care Flank pain Former smoker Gout Head injury History of kidney stones Hospital discharge follow-up Hx of care home use of blood thinners Kidney stones Microhematuria Pneumonia Renal cyst Screening PSA (prostate specific antigen) Squamous cell lung cancer Syncope Historical - Any problem that you are no longer receiving treatment for. Hypothyroid Patient Survey You may receive a survey via text or e-mail asking about your office visit. Please share your experience with us by completing your survey. We appreciate your feedback and thank you for choosing us for your care. Patient Portal You may access all of your results and other medical record information on our secure patient portal. If you are not signed up for this yet, please contact [employer] at [phone] to get signed up today. Language Information Language assistance services are available as needed. Manoj [facility] Bekah 12-05-2024 [facility] Telephone (HEMASA) -------- JATIN KOCH ([id number]) 1960 M Date Time Provider Department 12/05/24 TIFFANIE HARGROVE During your visit today, we recorded the following information about you: Tiffanie Hargrove RN 12/05/2024 1:15 PM Signed Call received from pt's stating pt continues with fevers. Pt saw PCP today and had a CXR done. Waiting for results. PCP started pt on prednisone and albuterol nebulizer treatments. states she is going to give pt Tylenol around the clock to see if this helps control the fevers. Pt is weaker now and also having a little more shortness of breath, which is why PCP ordered CXR. Pt's wanted our office to be aware. Reyna: can you get records from PCP please Thanks PRITI Jenkins Adarsh, MD 12/05/2024 2:53 PM Signed Consider going to ER if symptoms get worse. Thank you Tiffanie Hargrove RN 12/06/2024 11:50 AM Signed Pt's CXR shows no changes. PRITI Jenkins Jennifer L 12/06/2024 2:47 PM Signed Records scanned. Allergies As of Date: 12/05/2024 Noted Allergy Reaction SULFAMETHOXAZOLE 10/25/2024 14 - Other: See Comments 16 - Unknown Comments: Urinary retention SULFAMETHOXAZOLE-TRIMETH OPRIM 12/17/2016 14 - Other: See Comments CODEINE 10/25/2024 14 - Other: See Comments Comments: sweats Date Reviewed: 11/20/2024 Reviewed by: Rachel Parekh RN - Fully Assessed Reason for Visit: Care Coordination [349] Cmt: Clinical update Prescriptions as of 12/08/2024 - prochlorperazine (COMPAZINE) 10 mg tablet Take 1 tablet by mouth every 6 hours as needed. - ondansetron (ZOFRAN) 8 mg tablet Take 1 tablet by mouth every 8 hours as needed for nausea/vomiting. - HERBAL DRUGS MISC 1 capsule once daily. [employer] - OTC PRODUCT THC 5mg TID - appetite, pain, energy - loratadine 10 mg dissolvable tablet Take 10 mg by mouth once daily. - albuterol HFA (PROVENTIL HFA, VENTOLIN HFA) 90 mcg/actuation inhaler Inhale 2 puffs as instructed every 4 hours as needed for wheezing/shortness of breath. - dextromethorphan-guaiFEN esin (MUCINEX DM) 30-600 mg per tablet Take 2 tablets by mouth two times a day. - meclizine (ANTIVERT) 25 mg tab Take 25 mg by mouth three times a day as needed. - fluticasone propionate (FLONASE NASAL) Use in the nose once daily. - Acetaminophen 500 mg cap Take 1,000 mg by mouth four times a day as needed for pain. - MEN'S MULTI-VITAMIN ORAL Take by mouth once daily. - Benzonatate 200 mg capsule Take 200 mg by mouth three times a day as needed for cough. - metoprolol succinate ER (TOPROL XL) 25 mg 24 hr tablet Take 25 mg by mouth. Problem List As Of Date 12/05/2024 Noted Resolved CALCIF TENDINITIS SHLDER [M75.30] 03/25/2006 ROTATOR CUFF SYND NOS [M71.9, M67.919] 03/25/2006 ULNAR NERVE LESION [G56.20] 03/25/2006 CARPAL TUNNEL SYNDROME [G56.00] 03/25/2006 Malignant neoplasm of lower lobe of right lung *11/17/2024 Encounter Status:Closed by TIFFANIE HARGROVE on 12/08/24 Normal [facility] Medicine Office/Clini c Noteon 12-05-2024 Family Medicine Office/Clinic Note Family Medicine Office/Clinic Note Chief Complaint ER follow up HPI Staff Patient is presenting for ER follow up ER followup: Hospital: [facility] Visit date: 11/27/24 Symptoms the patient presented with: cough and fever, Covid Current concerns: exhuasted, still having fevers, cough History of Present Illness pt presents today for continued fever, fatigue and cough. started fever on 11/22. tested + for covid on 11/27 Review of Systems PHQ Score Initial Depression Screen Score: 0 SCORE Physical Exam Vitals & Measurements HR: 96(Peripheral) BP: 112/58 SpO2: 96% HT: 172 cm HT: 68 in WT: 84.6 kg WT: 186.511 lb BMI: 28.6 General: alert, no acute distress ENMT: oral mucosa moist, no pharyngeal erythema or exudate Cardiovascular: regular rate and rhythm, normal peripheral perfusion Respiratory: Lungs expiratory wheezes, respirations non labored Extremities: no deformity, no trauma Neurological: oriented x 4, LOC appropriate for age, CN II-XII intact, motor strength equal & normal bilaterally, speech normal Assessment/Plan 1. Wheezing (R06.2: Wheezing) pt tested positive for covid on 11/27 but started with fever on 11/22. has been up to 103. chest x ray on 11/27 was negative. pt just completed a round of levaquin then doxycycline. will send in albuterol for nebulizer and prednisone taper. RTC 2 weeks 2. Fever (R50.9: Fever, unspecified) pt has been running a fever since 11/22. reviewed blood culture results from 12/03 those were negative. attempted to call oncology but was on hold for 10+ minutes. pts has a direct number to his caser. she is going to call her when they get home to see if there is anything further oncology would like to do. he is supposed to have CT of brain on and they do not want to delay that anymore. but with him still ill and running fever not sure if he should follow through with that. pt has been having fogging memory and they are concerned the cancer has spread to the brain 3. Non-smoker (Z78.9: Other specified health status) continue not smoking Ordered: XR Chest 2 Views 4. BMI 28.0-28.9,adult (Z68.28: Body mass index [BMI] 28.0-28.9, adult) BMI education given Ordered: XR Chest 2 Views Orders: albuterol, 2.5 mg, 3 mL, Inhalation, q6hr for wheezing, 60 EA, Refill(s) 0, [facility]/pharmacy #[id number], 172, cm, 12/05/24 11:09:00 EDT, Height/Length Dosing, 84.6, kg, 12/05/24 11:09:00 EDT, Weight Dosing predniSONE, See Instructions, TAKE 3 TABLETS X 3 DAYS, 2 TABLETS X 3 DAYS, THEN 1 TABLET X 3 DAYS, # 18 tab(s), Refills(s) 2, Pharmacy: [facility]/pharmacy #[id number], 172, cm, 12/05/24 11:09:00 EDT, Height/Length Dosing, 84.6, kg, 12/05/24 11:09:00 EDT, Weight Dosing Follow-up No qualifying data available Problem List/Past Medical History Ongoing Arthritis BMI 31.0-31.9,adult BPH with urinary obstruction Encounter to establish care Fever Flank pain Former smoker Gout Head injury History of kidney stones Hospital discharge follow-up Hx of care home use of blood thinners Kidney stones Microhematuria Pneumonia Renal cyst Screening PSA (prostate specific antigen) Squamous cell lung cancer Syncope Wheezing Historical Hypothyroid Procedure/Surgical History TURP - Transurethral resection of prostate (05/17/2019), Cystoscopy (12/08/2018), Colonoscopy, Tonsillectomy. Medications Albuterol (Eqv-Proventil HFA) 90 mcg/inh inhalation aerosol albuterol 0.083% Inh Vianca 3 mL, 2.5 mg= 3 mL, Inhalation, q6hr, PRN Benadryl 25 mg Cap, 25 mg= 1 cap(s), Oral, Once benzonatate 200 mg oral capsule cyclobenzaprine 10 mg Tab levofloxacin 750 mg Tab meclizine 25 mg Tab meloxicam 7.5 mg Tab, 7.5 mg= 1 tab(s), Oral, Daily metoprolol succinate 25 mg ER Tab, 25 mg= 1 tab(s), Oral, Daily Multi Vitamin+ predniSONE 10 mg Tab, Oral, As Directed predniSONE 20 mg Tab, See Instructions, 2 refills Allergies codeine (Sweating) Bactrim (Unable to void) Pollen (Watery eye, Eye swelling) sulfamethoxazole (Unknown, Unable to urinate) Social History Alcohol Never., 10/13/2024 Substance Abuse Never., 10/13/2024 Tobacco Former smoker, quit more than 30 days ago, quit 2016 Tobacco Use:. Never Smokeless Tobacco Use:. Household tobacco concerns: No., 12/05/2024 Family History Acute myocardial infarction: Father. Hypertension: [...] Recorded influenza virus vaccine, inactivated 03/14/2017 Recorded Normal [facility] Comment on above: Result Comment: Elec tronically Signed By: Carlos Sethi\Rockybr\Date and Time Signed: 12/05/24 15:02 EDT Bekah 11-28-2024 MILLIE Telephone (RADTSA) -------- JATIN KOCH ([id number]) 1960 M Date Time Provider Department 11/28/24 EZRA LIZAMA During your visit today, we recorded the following information about you: Macy Oviedo, RN 11/28/2024 10:27 AM Signed PTs spouse called in to let us know Jatin has tested positive for covid. He went to ER last night due to persistent fever, diaphoreseis, chills and they tested him there. He is too late in symptoms for paxlovid, so they told them he has to tough it out. He is still running fevers and knows they'll need to reschedule the SIM this week. Spouse also requested that we let Eloy Juares and Falguni (pharm student) know of this as he had his mask off during education. Dr Lizama- pt is scheduled for a CT on 12/07. Do you want to wait until after this to do SIM or should we just postpone sim approximately 1 week? Please advise. PRITI Rouse Courtney, RT(R) 11/28/2024 11:53 AM Signed Sim cancelled for 11/30/24; will reschedule once notified when to re add PSS- please cancel nurse visit for 11/30 RT Mila(R)(T) Lauren Callejas 11/28/2024 11:56 AM Signed Nurse visit has been canceled Macy Melo, PRITI 11/28/2024 1:28 PM Signed You Sharon Vásquez, PRITI; Tiffanie Hargrove, RN1 minute ago (1:26 PM) AW I [...] why I wanted to see with Dr Lizama if SIM was ok to be prior to that. PRITI Rouse Courtney, RT(R) 11/28/2024 2:22 PM Signed Sim rescheduled for 12/08/24 at 10:30 Will need nurse visit for IV start RT Mila(R)(T) Macy Oviedo, PRITI 11/28/2024 3:13 PM Signed Please notify pt and adjust appts. PRITI Rouse Trisha 11/28/2024 3:24 PM Signed IV start appointment has been added. I called and spoke to [place] Eloy. I reminded her of the CT on 12/07/24. I confirmed his SIM arrival date and time on the . Lauren B PSS Allergies As of Date: 11/28/2024 Noted Allergy Reaction SULFAMETHOXAZOLE 10/25/2024 14 - Other: See Comments 16 - Unknown Comments: Urinary retention SULFAMETHOXAZOLE-TRIMETH OPRIM 12/17/2016 14 - Other: See Comments CODEINE 10/25/2024 14 - Other: See Comments Comments: sweats Date Reviewed: 11/20/2024 Reviewed by: Rachel Parekh RN - Fully Assessed Reason for Visit: Patient Update [1234] Future Appointment [256] Prescriptions as of 11/29/2024 - prochlorperazine (COMPAZINE) 10 mg tablet Take 1 tablet by mouth every 6 hours as needed. - ondansetron (ZOFRAN) 8 mg tablet Take 1 tablet by mouth every 8 hours as needed for nausea/vomiting. - HERBAL DRUGS MISC 1 capsule once daily. Moringa/Soursop - OTC PRODUCT THC 5mg TID - appetite, pain, energy - loratadine 10 mg dissolvable tablet Take 10 mg by mouth once daily. - albuterol HFA (PROVENTIL HFA, VENTOLIN HFA) 90 mcg/actuation inhaler Inhale 2 puffs as instructed every 4 hours as needed for wheezing/shortness of breath. - dextromethorphan-guaiFEN esin (MUCINEX DM) 30-600 mg per tablet Take 2 tablets by mouth two times a day. - doxycycline hyclate (VIBRAMYCIN) 100 mg capsule Take 1 capsule by mouth two times a day for 7 days. - meclizine (ANTIVERT) 25 mg tab Take 25 mg by mouth three times a day as needed. - fluticasone propionate (FLONASE NASAL) Use in the nose once daily. - Acetaminophen 500 mg cap Take 1,000 mg by mouth four times a day as needed for pain. - MEN'S MULTI-VITAMIN ORAL Take by mouth once daily. - Benzonatate 200 mg capsule Take 200 mg by mouth three times a day as needed for cough. - metoprolol succinate ER (TOPROL XL) 25 mg 24 hr tablet Take 25 mg by mouth. Problem List As Of Date 11/28/2024 Noted Resolved CALCIF TENDINITIS SHLDER [M75.30] 03/25/2006 ROTATOR CUFF SYND NOS [M71.9, M67.919] 03/25/2006 ULNAR NERVE LESION [G56.20] 03/25/2006 CARPAL TUNNEL SYNDROME [G56.00] 03/25/2006 Malignant neoplasm of lower lobe of right lung *11/17/2024 Encounter Status:Closed by SHARON VÁSQUEZ on 11/29/24 Normal [facility] CNNURSEon 11-27-2024 CNNURSE Nurse Visit (HEMASA) -------- JATIN KOCH ([id number]) 1960 M Date Time Provider Department 11/27/24 9:00 AM TIFFANIE HARGROVE During your visit today, we recorded the following information about you: Eloy Lucas RP 11/27/2024 11:40 AM Signed [facility] Department of Pharmacy Oncology Pharmacy Medication Education Patient Name: Jatin Koch COTY Primary Oncologist: Ana Diagnosis: Lung cancer Jatin Koch II is a 64 year old patient and spouse here today for medication education for IV CARBOPLATIN and PACLITAXEL . Drug Interactions: Clinically significant interactions with chemotherapy, immunosuppression, or other standard of care treatment plan medications anticipated: No. There are no pertinent drug interactions identified. Patient was counseled accordingly. Allergies: Patient confirmed allergies documented in [facility] are correct: Yes Was medication education provided?: [...] (15 minute increments) with the patient Eloy Lucas [facility] Eloy Lucas [facility] 11/27/2024 11:45 AM Signed Addended by: ELOY LUCAS on: 11/27/2024 11:45 AM Modules accepted: Eloy Ohara [facility] 11/27/2024 11:58 AM Signed Addended by: ELOY LUCAS on: 11/27/2024 11:58 AM Modules accepted: Tiffanie Weinstein RN 11/27/2024 11:02 AM Signed ONCOLOGY PATIENT EDUCATION NOTE TOPIC: Chemotherapy, Medications: [...] call. Contact information given. SUPPLEMENTAL MATERIAL: Written mat (more content not included)... Normal [facility] Bekah 11-27-2024 CNPN Telephone (PULMMN) -------- JATIN KOCH ([id number]) 1960 M Date Time Provider Department 11/27/24 CANDICE GARAY ([facility]) [place] During your visit today, we recorded the following information about you: Candice Garay 11/27/2024 10:41 AM Signed Patient called and stated if something else can be given to patient for his MRSA. He is running fevers, getting chills,and diuretic episodes She stated the doxycyline is not working [phone] Nancy Murphy, RN 11/27/2024 1:47 PM Addendum Spoke to patient's , Eloy. Dr Robertson suggested patient go to the nearest emergency room to be evaluated for the fever, chills, AND diaphoretic episodes. She is aware patient may need to get bloodwork / blood cultures drawn, and may need to be admitted for IV antibiotics. Eloy is in agreement with this plan. Allergies As of Date: 11/27/2024 Noted Allergy Reaction SULFAMETHOXAZOLE 10/25/2024 14 - Other: See Comments 16 - Unknown Comments: Urinary retention SULFAMETHOXAZOLE-TRIMETH OPRIM 12/17/2016 14 - Other: See Comments CODEINE 10/25/2024 14 - Other: See Comments Comments: sweats Date Reviewed: 11/20/2024 Reviewed by: Rachel Parekh RN - Fully Assessed Reason for Visit: Patient Update [1234] Prescriptions as of 11/27/2024 - prochlorperazine (COMPAZINE) 10 mg tablet Take 1 tablet by mouth every 6 hours as needed. - ondansetron (ZOFRAN) 8 mg tablet Take 1 tablet by mouth every 8 hours as needed for nausea/vomiting. - HERBAL DRUGS MISC 1 capsule once daily. Moringa/Soursop - OTC PRODUCT THC 5mg TID - appetite, pain, energy - loratadine 10 mg dissolvable tablet Take 10 mg by mouth once daily. - albuterol HFA (PROVENTIL HFA, VENTOLIN HFA) 90 mcg/actuation inhaler Inhale 2 puffs as instructed every 4 hours as needed for wheezing/shortness of breath. - dextromethorphan-guaiFEN esin (MUCINEX DM) 30-600 mg per tablet Take 2 tablets by mouth two times a day. - doxycycline hyclate (VIBRAMYCIN) 100 mg capsule Take 1 capsule by mouth two times a day for 7 days. - meclizine (ANTIVERT) 25 mg tab Take 25 mg by mouth three times a day as needed. - fluticasone propionate (FLONASE NASAL) Use in the nose once daily. - Acetaminophen 500 mg cap Take 1,000 mg by mouth four times a day as needed for pain. - MEN'S MULTI-VITAMIN ORAL Take by mouth once daily. - Benzonatate 200 mg capsule Take 200 mg by mouth three times a day as needed for cough. - metoprolol succinate ER (TOPROL XL) 25 mg 24 hr tablet Take 25 mg by mouth. Problem List As Of Date 11/27/2024 Noted Resolved CALCIF TENDINITIS SHLDER [M75.30] 03/25/2006 ROTATOR CUFF SYND NOS [M71.9, M67.919] 03/25/2006 ULNAR NERVE LESION [G56.20] 03/25/2006 CARPAL TUNNEL SYNDROME [G56.00] 03/25/2006 Malignant neoplasm of lower lobe of right lung *11/17/2024 Encounter Status:Closed by NANCY FERRER on 11/27/24 [facility] Telephone (HEMASA) -------- JATIN KOCH ([id number]) 1960 M Date Time Provider Department 11/27/24 TIFFANIE HARGROVE HEMASA During your visit today, we recorded the following information about you: Tiffanie Hargrove RN 11/27/2024 10:46 AM Signed Pt is here for education today and is concerned that pt has been having brain fog lately (for at least 3 weeks), doesn't remember things, feels dizzy and woozy at times, and has continued weakness and fatigue. Pt is due for SIM on Wednesday. Had a brain MRI on 11/02 that was negative. Please advise PRITI Jenkins Adarsh, MD 11/27/2024 10:52 AM Signed I ordered a CT head. Thank you Tiffanie Hargrove RN 11/27/2024 11:03 AM Signed Please call pt's and schedule CT head ordered by Dr Wilkerson. Thanks PRITI Jenkins Trisha 11/27/2024 11:53 AM Signed Called and spoke to Jatin and we scheduled him for a CT on 12/07/24 at 8:30 AM Lauren Brownlee PSS Allergies As of Date: 11/27/2024 Noted Allergy Reaction SULFAMETHOXAZOLE 10/25/2024 14 - Other: See Comments 16 - Unknown Comments: Urinary retention SULFAMETHOXAZOLE-TRIMETH OPRIM 12/17/2016 14 - Other: See Comments CODEINE 10/25/2024 14 - Other: See Comments Comments: sweats Date Reviewed: 11/20/2024 Reviewed by: Rachel Parekh RN - Fully Assessed Reason for Visit: Care Coordination [4111] Cmt: Clinical update Primary Visit Diagnosis:Malignant neoplasm of lower lobe of right lung (HCC) [C34.31] Order(s):CT BRAIN WO SKINNY [[id number]] Order #: [id number] FUTURE Prescriptions as of 11/27/2024 - prochlorperazine (COMPAZINE) 10 mg tablet Take 1 tablet by mouth every 6 hours as needed. - ondansetron (ZOFRAN) 8 mg tablet Take 1 tablet by mouth every 8 hours as needed for nausea/vomiting. - HERBAL DRUGS MISC 1 capsule once daily. Moringa/Soursop - OTC PRODUCT THC 5mg TID - appetite, pain, energy - loratadine 10 mg dissolvable tablet Take 10 mg by mouth once daily. - albuterol HFA (PROVENTIL HFA, VENTOLIN HFA) 90 mcg/actuation inhaler Inhale 2 puffs as instructed every 4 hours as needed for wheezing/shortness of breath. - dextromethorphan-guaiFEN esin (MUCINEX DM) 30-600 mg per tablet Take 2 tablets by mouth two times a day. - doxycycline hyclate (VIBRAMYCIN) 100 mg capsule Take 1 capsule by mouth two times a day for 7 days. - meclizine (ANTIVERT) 25 mg tab Take 25 mg by mouth three times a day as needed. - fluticasone propionate (FLONASE NASAL) Use in the nose once daily. - Acetaminophen 500 mg cap Take 1,000 mg by mouth four times a day as needed for pain. - MEN'S MULTI-VITAMIN ORAL Take by mouth once daily. - Benzonatate 200 mg capsule Take 200 mg by mouth three times a day as needed for cough. - metoprolol succinate ER (TOPROL XL) 25 mg 24 hr tablet Take 25 mg by mouth. Problem List As Of Date 11/27/2024 Noted Resolved CALCIF TENDINITIS SHLDER [M75.30] 03/25/2006 ROTATOR CUFF SYND NOS [M71.9, M67.919] 03/25/2006 ULNAR NERVE LESION [G56.20] 03/25/2006 CARPAL TUNNEL SYNDROME [G56.00] 03/25/2006 Malignant neoplasm of lower lobe of right lung *11/17/2024 Encounter Status:Closed by TIFFANIE HARGROVE on 11/27/24 Normal [facility] CNPN Telephone (PULMMN) -------- JATIN KOCH ([id number]) 1960 M Date Time Provider Department 11/27/24 IRA TAPIA During your visit today, we recorded the following information about you: Ira Tapia MD 11/27/2024 6:10 PM Signed Recived outside call Eulalio Porras. Patient presented to [facility] ED w/ 5 days of fever. Positive [...] advised to call them tomorrow and reschedule his appointment. Allergies As of Date: 11/27/2024 Noted Allergy Reaction SULFAMETHOXAZOLE 10/25/2024 14 - Other: See Comments 16 - Unknown Comments: Urinary retention SULFAMETHOXAZOLE-TRIMETH OPRIM 12/17/2016 14 - Other: See Comments CODEINE 10/25/2024 14 - Other: See Comments Comments: sweats Date Reviewed: 11/20/2024 Reviewed by: Rachel Parekh, PRITI - Fully Assessed Prescriptions as of 11/27/2024 - prochlorperazine (COMPAZINE) 10 mg tablet Take 1 tablet by mouth every 6 hours as needed. - ondansetron (ZOFRAN) 8 mg tablet Take 1 tablet by mouth every 8 hours as needed for nausea/vomiting. - HERBAL DRUGS MISC 1 capsule once daily. Moringa/Soursop - OTC PRODUCT THC 5mg TID - appetite, pain, energy - loratadine 10 mg dissolvable tablet Take 10 mg by mouth once daily. - albuterol HFA (PROVENTIL HFA, VENTOLIN HFA) 90 mcg/actuation inhaler Inhale 2 puffs as instructed every 4 hours as needed for wheezing/shortness of breath. - dextromethorphan-guaiFEN esin (MUCINEX DM) 30-600 mg per tablet Take 2 tablets by mouth two times a day. - doxycycline hyclate (VIBRAMYCIN) 100 mg capsule Take 1 capsule by mouth two times a day for 7 days. - meclizine (ANTIVERT) 25 mg tab Take 25 mg by mouth three times a day as needed. - fluticasone propionate (FLONASE NASAL) Use in the nose once daily. - Acetaminophen 500 mg cap Take 1,000 mg by mouth four times a day as needed for pain. - MEN'S MULTI-VITAMIN ORAL Take by mouth once daily. - Benzonatate 200 mg capsule Take 200 mg by mouth three times a day as needed for cough. - metoprolol succinate ER (TOPROL XL) 25 mg 24 hr tablet Take 25 mg by mouth. Problem List As Of Date 11/27/2024 Noted Resolved CALCIF TENDINITIS SHLDER [M75.30] 03/25/2006 ROTATOR CUFF SYND NOS [M71.9, M67.919] 03/25/2006 ULNAR NERVE LESION [G56.20] 03/25/2006 CARPAL TUNNEL SYNDROME [G56.00] 03/25/2006 Malignant neoplasm of lower lobe of right lung *11/17/2024 Encounter Status:Closed by IRA TAPIA on 11/27/24 Normal [facility] Folate [Mass/Vol] 14.7 ng/mL Normal >4.7 [facility] Comment on above: Order Comment: Speci men Type: BLOOD SPECIMENOrdering Facility: [facility] Address: [address] [place] [address] [place] [address] Performed By: #### 5 0190-8, 2132-9, 2284-8 ####[facility] LABCLIA [id number] [place] [address] [place] Iron and Iron binding capaci ty panelon 06-16-2025 Iron [Mass/Vol] 32 ug/dL Low 41-186 [facility] Comment on above: Order Comment: Speci men Type: BLOOD SPECIMENOrdering Facility: [facility] Address: [address] [place] [address] Performed By: #### 5 0190-8, 2132-02, 2284-01 ####[facility] LABCLIA [id number] [place] [address] [place] Iron binding capacity [Mass/Vol] 264 ug/dL Normal 232-386 [facility] Comment on above: Order Comment: Speci men Type: BLOOD SPECIMENOrdering Facility: [facility] Address: [address] [place] [address] Performed By: #### 5 0190-8, 2132-02, 2284-01 ####[facility] LABCLIA [id number] [place] [address] [place] Iron/TIBC [Molar ratio] 12.1 % Low 15.0-57.0 [facility] Comment on above: Order Comment: Speci men Type: BLOOD SPECIMENOrdering Facility: [facility] Address: [address] [place] [address] Performed By: #### 5 0190-8, 2132-02, 2284-01 ####[facility] LABCLIA [id number] [place] [id number] [place] Vit B12 [facility] 11-27- 025 Cobalamin (Vitamin B12) [Mass/Vol] 782 pg/mL Normal 232-1245 [facility] Comment on above: Order Comment: Speci men Type: BLOOD SPECIMENOrdering Facility: [facility] Address: [address] [place] [address] Performed By: #### 5 0190-8, 2132-02, 2284-01 ####[facility] LABCLIA [id number] [place] [id number] [place] CNPAlexandra 11-23-2024 CNPN Telephone (PULMMN) -------- AUGUSTJATIN ([id number]) 1960 M Date Time Provider Department 11/23/24 FATOU JANELL PULAkosua During your visit today, we recorded the following information about you: Janell An 11/23/2024 9:35 AM Signed Patient has a string cough but unable to cough up mucous. Patient would like saline for nebulizer sent to [facility] at [address] [place] [address] in [place] [address] Allergies As of Date: 11/23/2024 Noted Allergy Reaction SULFAMETHOXAZOLE 10/25/2024 14 - Other: See Comments 16 - Unknown Comments: Urinary retention SULFAMETHOXAZOLE-TRIMETH OPRIM 12/17/2016 14 - Other: See Comments CODEINE 10/25/2024 14 - Other: See Comments Comments: sweats Date Reviewed: 11/20/2024 Reviewed by: Rachel Parekh RN - Fully Assessed Reason for Visit: Medication Request [138] Prescriptions as of 11/28/2024 - prochlorperazine (COMPAZINE) 10 mg tablet Take 1 tablet by mouth every 6 hours as needed. - ondansetron (ZOFRAN) 8 mg tablet Take 1 tablet by mouth every 8 hours as needed for nausea/vomiting. - HERBAL DRUGS MISC 1 capsule once daily. Moringa/[employer] - OTC PRODUCT THC 5mg TID - appetite, pain, energy - loratadine 10 mg dissolvable tablet Take 10 mg by mouth once daily. - albuterol HFA (PROVENTIL HFA, VENTOLIN HFA) 90 mcg/actuation inhaler Inhale 2 puffs as instructed every 4 hours as needed for wheezing/shortness of breath. - dextromethorphan-guaiFEN esin (MUCINEX DM) 30-600 mg per tablet Take 2 tablets by mouth two times a day. - doxycycline hyclate (VIBRAMYCIN) 100 mg capsule Take 1 capsule by mouth two times a day for 7 days. - meclizine (ANTIVERT) 25 mg tab Take 25 mg by mouth three times a day as needed. - fluticasone propionate (FLONASE NASAL) Use in the nose once daily. - Acetaminophen 500 mg cap Take 1,000 mg by mouth four times a day as needed for pain. - MEN'S MULTI-VITAMIN ORAL Take by mouth once daily. - Benzonatate 200 mg capsule Take 200 mg by mouth three times a day as needed for cough. - metoprolol succinate ER (TOPROL XL) 25 mg 24 hr tablet Take 25 mg by mouth. Problem List As Of Date 11/23/2024 Noted Resolved CALCIF TENDINITIS SHLDER [M75.30] 03/25/2006 ROTATOR CUFF SYND NOS [M71.9, M67.919] 03/25/2006 ULNAR NERVE LESION [G56.20] 03/25/2006 CARPAL TUNNEL SYNDROME [G56.00] 03/25/2006 Malignant neoplasm of lower lobe of right lung *11/17/2024 Encounter Status:Closed by JANELL AN on 11/28/24 [facility] Telephone (RADTSA) -------- JATIN KOCH ([id number]) 1960 M Date Time Provider Department 11/23/24 EZRA LIZAMA During your visit today, we recorded the following information about you: Richardson Cantu, RN 11/23/2024 9:34 AM Signed Eloy, pt's spouse, left a message stating Jatin had bronchoscopy and sputum culture and will be starting doxycycline 100mg BID x 7 days today for MRSA. She is said authorization for PFT's is still pending but would like them done at [facility]-no orders in [facility]. She also asked about a CT chest with IV contrast being ordered-no orders in [facility]. She said he is to have labs per Dr. Perez and is wondering if he can have those drawn at [facility] as well. Patient is currently scheduled for SIM today with Dr. Lizama. Please advise: Does patient need PFT's and/or CT chest? Can patient have [facility] one and other ordered labs at [facility] or do they need done at [facility]? Should SIM continue today or be rescheduled d/t MRSA? Thanks PRITI Gonzalez Rebecca, RN 11/23/2024 9:44 AM Signed [facility] labs will need to be drawn in our office. Will defer the other questions to the providers. PRITI James, MD Kvng 11/23/2024 9:47 AM Signed No need of PFTs and CT chest. Richardson Cantu RN 11/23/2024 10:19 AM Signed I called and spoke with Eloy and notified her Dr. Lizama would like PFT's prior to starting radiation treatment. A diagnostic CT chest is not needed at this time but the CT/SIM is with IV contrast and she said that's probably what she was thinking of. I notified her the foundation labs need drawn at our office and she is in agreement. She said Jatin had a fever yesterday and felt lousy [...] call our office with an update. Dr. Lizama-PFT order pending your signature. Do you want to reschedule SIM to next week due to fever of 102.1 this a.m.? PSS: Please schedule PFT's at [facility] per patient request. These need scheduled prior to radiation new start. Thanks PRITI Gonzalez Ariana E, RN 11/23/2024 10:21 AM Signed Eloy called back and current temp is 98.9, with Tylenol 1, 00mg at 8:00 a.m. PRITI Gonzalez Ariana E, RN 11/23/2024 12:11 PM Signed PSS/RT: Dr. Lizama would like today's SIM rescheduled to next week any day 11/29-12/01. I notified Eloy, pt's , of the above and our office will call her back to reschedule. Please call pt's with new appt. She would like to keep chemo ed as scheduled on 11/[address] Lizama will be in [place] on 11/27 and 11/28. PRITI Gonzalez Courtney RT(R) 11/23/2024 12:27 PM Signed Sim re- scheduled for 11/30/24 at 9:00 am Please add nurse visit for 8:45 for IV start, notify patient of arrival time of 8:30 Nancy Hussein RT(R)(T) Blessing Dougherty 11/23/2024 12:35 PM Signed Added nurse visit for IV start on 11/30/2024 at 8:45 am. CLAY Ramos Amy S 11/23/2024 12:35 PM Signed I spoke with patient AND let him know his SIM was rescheduled to 11/30/2024 AND to arrive by 8:30 am. CLAY Ramos Allergies As of Date: 11/23/2024 Noted Allergy Reaction SULFAMETHOXAZOLE 10/25/2024 14 - Other: See Comments 16 - Unknown Comments: Urinary retention SULFAMETHOXAZOLE-TRIMETH OPRIM 12/17/2016 14 - Other: See Comments CODEINE 10/25/2024 14 - Other: See Comments Comments: sweats Date Reviewed: 11/20/2024 Reviewed by: Rachel Parekh RN - Fully Assessed Reason for Visit: Patient Update [1234] Patient Question [3767] Primary Visit Diagnosis:Malignant neoplasm of lower lobe of right lung (HCC) [C34.31] Order(s):SPIROMETRY BASELINE ONLY [[id number]] Order #: [id number]: 1 FUTURE Prescriptions as of 11/23/2024 - doxycycline hyclate (VIBRAMYCIN) 100 mg capsule Take 1 capsule by mouth two times a day for 7 days. - levoFLOXacin (LEVAQUIN) 750 mg tablet Take 750 mg by mouth. - meclizine (ANTIVERT) 25 mg tab Take 25 mg by mouth three times a day. - fluticasone propionate (FLONASE NASAL) Use in the nose once daily. - Acetaminophen 500 mg cap Take 500 mg by mouth once daily. Takes aout 6 a day - diphenhydramine HCl (ALLERGY MEDICATION ORAL) Take by mouth once daily. - MEN'S MULTI-VITAMIN ORAL Take by mouth once daily. - Benzonatate 200 mg capsule - cyclobenzaprine (FLEXERIL) 10 mg tablet Take 10 mg by mouth at bedtime as needed. - meloxicam (MOBIC) 7.5 mg tablet Take 7.5 mg by mouth once daily. - metoprolol succinate ER (TOPROL XL) 25 mg 24 hr tablet Take 25 mg by mouth. - predniSONE (DELTASONE) 20 mg tablet Problem List As Of Date 11/23/2024 Noted Resolved CALCIF TENDINITIS SHL (more content not included)... Normal [facility] 11-22-19 [facility] Case Information Case Priority: None Programs: -- Referral Source: Will Call Order Clerk Referral Reason: Care coordination Case Type: Transition Care Management Risk Score: -- Case Status: Enrolled (November 08, 2024) Date Assigned: November 07, 2024 Assigned By: Gordo Humphries Date Enrolled: November 08, 2024 Assigned Primary Personnel: Gordo Humphries Assigned Secondary Personnel: -- Case Physician: Carlos Sethi Problems Ongoing Arthritis BMI 31.0-31.9,adult BPH with urinary obstruction Encounter to establish care Flank pain Former smoker Gout Head injury History of kidney stones Hospital discharge follow-up 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 Home Medications Albuterol (Eqv-Proventil HFA) 90 mcg/inh inhalation aerosol benzonatate 200 mg oral capsule cyclobenzaprine 10 mg Tab levofloxacin 750 mg Tab meclizine 25 mg Tab meloxicam 7.5 mg Tab, 7.5 mg= 1 tab(s), Oral, Daily metoprolol succinate 25 mg ER Tab, 25 mg= 1 tab(s), Oral, Daily Multi Vitamin+ predniSONE 10 mg Tab, Oral, As Directed Allergies codeine (Sweating) Bactrim (Unable to void) Pollen (Watery eye, Eye swelling) sulfamethoxazole (Unknown, Unable to urinate) Social History Alcohol Never., 10/13/2024 Substance Abuse Never., 10/13/2024 Tobacco Former smoker, quit more than 30 days ago, quit 2017 Tobacco Use:., 10/13/2024 Family History Acute myocardial infarction: Father. Hypertension: Father. Screenings and Assessments 11/08/24 11:06:00 Result Name Value Comment Phone Call Monitoring Consent Agreed to continue call Phone Verification Patient Information Full name, street address and date of verified CM Program Enrollment Provides verbal consent for enrollment Goals and Interventions Care Plan Progress Note Outreach to patient for TCM #3. States doing well had bronchoscopy yesterday at [facility], they were able to remove a majority of the right lung mass. Denies any SOB, CP, weakness or syncopal episodes. Does have a frequent dry cough today, no fevers, had some blood tinged sputum yesterday and late last night, none today. he is going to [facility] for an x-ray when his gets home today to check for pacemaker lead placement, was told Communication Events Date: November 21, 2024 Method: Phone call Type: Outbound Duration (min): 15 Outcome: Case discussion Contact Type: manager of revenueproject manager industrial Name: Tamiko Sadler LPN Notes: -- Created By: Tamiko Sadler LPN Date: November 13, 2024 Method: Phone call Type: Outbound Duration (min): 7 Outcome: Case discussion Contact Type: Patient Contact Name: JATIN KOCH II Notes: TCM#2- see tcm note. Created By: Gordo Humphries that a lead may loose when they did imaging after his procedure yesterday. Has appointment with Cardiology 11/22. BP today was 110/70, Spo2 94%. Denies any concerns or needs at this time. Title as TCM # 3 and route to Kayla Ricci CNP please, I had to change positions and not able to finish note. Normal [facility] XR CHEST 2 VWSon 11-21-2024 XR CHEST 2 VWS XR CHEST 2 VWS HISTORY: Pacemaker placement COMPARISON: Chest x-ray 11/09/2024 [...] Logan Mccormick MD on 11/21/2024 10:29 PM Normal [facility] ANES POSTPROC EVALon 025 ANES POSTPROC EVAL HNO ID: [id number] Author: AZALEA MEJÍA MD Service: ? 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 Post Anesthesia Patient Status Patient Evaluation: PACU. PACU/ICU Patient Condition: stable. Anticipated Disposition: phase 2 then home. Neurological Status: aware and responsive. Pulmonary Status: breathing comfortably on supplemental oxygen Airway Control: returned to baseline unsupported. Cardiovascular Status: stable. Pain Management: clinically adequate - multimodal analgesia pain management approach Postoperative Hydration: acceptable. Intraoperative Events: no significant anesthesia events Post Operative Nausea/Vomiting Status: no significant post operative nausea or vomiting Recommendation: continue current plan of care. Anesthesia Observations No Documentation SIGNATURE: Azalea Mejía MD PATIENT NAME: Jatin Koch II DATE: November 20, 2024 TIME: 1:23 PM CSN: [id number] Normal [facility] ANES PRE-OPon 11-20-2024 ANES PRE-OP HNO ID: [id number] Author: AZALEA MEJÍA MD Service: ? Author Type: Anesthesiologist Type: Anesthesia Preprocedure Evaluation Filed: 11/20/2024 10:53 Note Text: ANESTHESIOLOGY DAY OF SURGERY NOTE : 1960 Procedure Information Anesthesia Start Date/Time: 11/20/24 1049 Procedure: BRONCHOSCOPY FLEXIBLE ADULT (Bronchus) - Tier 2 Therapeutic Bronch Add't Notes to Grocery Clerk Stocking Pacemaker Nurse Called before procedure Location: PULM B-01 / [facility] H23 Surgeons: Regina Robertson MD Estimated body mass index is 30.25 kg/m? as calculated from the following: Height as of 11/17/24: 169.5 cm (5' 6.73 ). Weight as of 11/17/24: 86.9 kg (191 lb 9.3 oz). Most recent hematocrit and potassium results: No results found for this basename: HCT,HEMATOCRIT,K,POTASSI UM Relevant Problems No relevant active problems I - PHYSICAL EVALUATION AIRWAY Patient intubated: No. Tracheostomy tube not present Mallampati: IV. TM distance: >3 FB. Neck ROM: full ROM without neurological symptoms. Mouth opening: non-adequate. Short neck: no. Thick neck: no II - ANESTHESIA PLAN ASA Score: 4 Anesthetic Plan: general Airway type: ETT NPO Status: adequate Beta Angella Monitoring Plan Monitoring plan: standard ASA. Post Procedure Analgesic Plan Postoperative analgesic plan: multimodal analgesia. Informed Consent Anesthetic risks, benefits, alternatives, personnel and consent discussed: yes. Patient / Responsible Alliance Party agrees to proceed: yes Patient / Surrogate agrees to blood products: Yes Significant changes in the patient condition since the History and Physical, not otherwise documented in primary service progress note: no. Potential Anesthesia issues that may suggest increased risk of complications or contraindication to planned procedure: other. Vitals Value Taken Time BP 112/67 11/20/24 0953 Pulse 94 11/20/24 0953 Resp 16 11/20/24 0953 Temp 36.3 ?C (97.3 ?F) 11/20/24 0953 SpO2 97 % 11/20/24 0915 No current facility-administered medications on file as of 11/20/2024. Outpatient Medications as of 11/20/2024 Medication Sig Acetaminophen 500 mg cap Take 500 mg by mouth once daily. Takes aout 6 a day Benzonatate 200 mg capsule fluticasone propionate (FLONASE NASAL) Use in the nose once daily. diphenhydramine HCl (ALLERGY MEDICATION ORAL) Take by mouth once daily. MEN'S MULTI-VITAMIN ORAL Take by mouth once daily. cyclobenzaprine (FLEXERIL) 10 mg tablet Take 10 mg by mouth at bedtime as needed. meloxicam (MOBIC) 7.5 mg tablet Take 7.5 mg by mouth once daily. metoprolol succinate ER (TOPROL XL) 25 mg 24 hr tablet Take 25 mg by mouth. predniSONE (DELTASONE) 20 mg tablet I have interviewed and examined the patient. I have reviewed the medical record and/or the pre-anesthesia evaluation, pertinent labs, and test results. This contains updated information obtained within 48 hours of Surgery/Procedure. SIGNATURE: Azalea Mejía MD PATIENT NAME: Jatin Koch II DATE: November 20, 2024 TIME: 10:52 AM CSN: [id number] Normal [facility] Bacteria Spec Resp Culton Bacteria identified Respiratory culture Nom (Unsp spec) ORGANISM ID: 1 Few Methicillin-RESISTANT Staphylococcus aureus (MRSA) [place] PBP2A SA CULTURE COLONY TEST: PBP2a was detected by an immunochromatographic assay. PBP2a is encoded for by the mecA gene. This isolate is methicillin-resistant. GRAM STAIN: No organisms seen Few Polymorphonuclear leukocytes ORGANISM ID: 1 (METHICILLIN RESISTANT STAPHYLOCOCCUS AUREUS) ANTIBIOTIC INTERPRETATION NOEMÍ STATUS REFERENCE RANGE Oxacillin R >=4 F Susceptible <=2 , Resistant >2 Oxacillin resistant Staphylococci are resistant to all beta-lactam antibiotics (except new cephalosporins with anti-MRSA activity i.e. ceftaroline) Erythromycin R >=8 F Susceptible <=0.5 , Intermediate >.5 , Resistant >4 Clindamycin S <=0.12 F Susceptible <=0.5 , Intermediate >.5 , Resistant >2 Testing for inducible clindamycin resistance was performed. Trimeth sulfameth R >=320 F Susceptible <=40 , Resistant >40 Vancomycin S 1 F Susceptible <=2 , Intermediate >2 , Resistant >8 Linezolid S 2 F Susceptible <=4 , Resistant >4 Rifampin S <=0.5 F Susceptible <=1 , Intermediate >1 , Resistant >2 Rifampin should not be used alone for antimicrobial therapy. Levofloxacin R >=8 F Susceptible <=1 , Intermediate >1 , Resistant >2 Tetracycline S <=1 F Susceptible <=4 , Intermediate >4 , Resistant >8 Doxycycline S <=0.5 F Susceptible <=4 , Intermediate >4 , Resistant >8 Abnormal [facility] Comment on above: Performed By: #### 3 2355-0 ####[facility] LABCLIA [id number] [address] OF [facility] Bekah 11-20-2024 ABBEYN Telephone (SANGITAMN) -------- JATIN KOCH ([id number]) 1960 M Date Time Provider Department 11/20/24 RADHA AUGUSTIN During your visit today, we recorded the following information about you: Radha Augustin RN 11/20/2024 10:51 AM Signed Pt recently had PPM implanted 11/09/[address] Robert Veloz's office (patient's implanting EP doctor) to notify clinic about the RA lead's threshold is at 4.5V @ 0.4ms. Was able to speak to device clinic and faxed report over to [phone] Allergies As of Date: 11/20/2024 Noted Allergy Reaction SULFAMETHOXAZOLE 10/25/2024 14 - Other: See Comments 16 - Unknown Comments: Urinary retention SULFAMETHOXAZOLE-TRIMETH OPRIM 12/17/2016 14 - Other: See Comments CODEINE 10/25/2024 14 - Other: See Comments Comments: sweats Date Reviewed: 11/20/2024 Reviewed by: Rachel Parekh RN - Fully Assessed Prescriptions as of 11/20/2024 - levoFLOXacin (LEVAQUIN) 750 mg tablet Take 750 mg by mouth. - meclizine (ANTIVERT) 25 mg tab Take 25 mg by mouth three times a day. - fluticasone propionate (FLONASE NASAL) Use in the nose once daily. - Acetaminophen 500 mg cap Take 500 mg by mouth once daily. Takes aout 6 a day - diphenhydramine HCl (ALLERGY MEDICATION ORAL) Take by mouth once daily. - MEN'S MULTI-VITAMIN ORAL Take by mouth once daily. - Benzonatate 200 mg capsule - cyclobenzaprine (FLEXERIL) 10 mg tablet Take 10 mg by mouth at bedtime as needed. - meloxicam (MOBIC) 7.5 mg tablet Take 7.5 mg by mouth once daily. - metoprolol succinate ER (TOPROL XL) 25 mg 24 hr tablet Take 25 mg by mouth. - predniSONE (DELTASONE) 20 mg tablet Problem List As Of Date 11/20/2024 Noted Resolved CALCIF TENDINITIS SHLDER [M75.30] 03/25/2006 ROTATOR CUFF SYND NOS [M71.9, M67.919] 03/25/2006 ULNAR NERVE LESION [G56.20] 03/25/2006 CARPAL TUNNEL SYNDROME [G56.00] 03/25/2006 Malignant neoplasm of lower lobe of right lung *11/17/2024 Encounter Status:Closed by RADHA AUGUSTIN on 11/20/24 Normal [facility] NURSING PROGon 11-20-2024 NURSING PROG HNO ID: [id number] Author: BEATRIZ TERESA RN Service: ? Author Type: Registered Nurse Type: Nursing Progress Note Filed: 11/20/2024 13:41 Note Text: POST OP LEARNING RESPONSE INSTRUCTION PROVIDED TO: Patient and Family member METHOD OF INSTRUCTION: Written instruction/Handouts Verbal instruction PATIENT / FAMILY RESPONSE: Verbalizes understanding of: POST-PROCEDURE INSTRUCTIONS-Correct actions to take to reduce post procedure complications FOLLOW-UP PLAN: Complete - No need for follow-up SUPPLEMENTAL MATERIAL: None REFERRAL (RECOMMENDATION): None Electronically Signed By: Beatriz Teresa RN Normal [facility] PD-L1 22C3on 11-20-2024 AP BIOMARKER DISCLAIMER Normal [facility] Comment on above: Order Comment: Speci men Type: TISSUE SPECIMENOrdering Facility: [facility] Address: [address] [place] [address] Result Comment: Laboratory Developed Test (LDT) Disclaimer: Performance characteristics of immunohistochemical, immunofluorescent and chromogenic in-situ hybridization tests have been determined by the performing laboratory within [facility]???s [facility] Pathology and Laboratory Medicine Department ([facility], [facility], [facility], [facility], [facility], [facility], or [facility]) in a manner consistent with CLIA requirements. One or more of these tests have not been cleared or approved by the FDA. RT-PLM is regulated under CLIA as qualified to perform high-complexity testing. These tests are used for clinical purposes. They should not be regarded as investigational or for research. Positive and negative controls stain appropriately. Performed By: #### L [id number] ####[facility] LABCLIA [id number] [place] [address] [place] AP BLOCK ID A1 Normal [facility] Comment on above: Order Comment: Speci men Type: TISSUE SPECIMENOrdering Facility: [facility] Address: [address] [place] [address] Performed By: #### L [id number] ####[facility] LABCLIA [id number] [address] BIOMARKER INTERPRETATION COMMENT AND REFERENCE RANGE Normal [facility] Comment on above: Order Comment: Speci men Type: TISSUE SPECIMENOrdering Facility: [facility] Address: [address] [place] [address] Result Comment: Inte rpretation standard: TPS: The Tumor Proportion Score is [...] Product label for additional information. KEYTRUDA - (https://www.Taggstar.com/prescribing-information/) LIBTAYO - (https://www.Scienion/sites/default/files/Libtayo_FPI.pdf) Performed By: #### L [id number] ####[facility] LABIA [id number] [address] BIOMARKER METHOD Immunohistochemistry was performed on formalin fixed paraffin-embedded tissue using the mouse monoclonal antibody 22C3 ([employer]; [place], [place]) followed by ultrasensitive bright field detection (Optiview with amplification [[employer], [place]]). Normal [facility] Comment on above: Order Comment: Speci men Type: TISSUE SPECIMENOrdering Facility: [facility] Address: [address] [place] [address] Performed By: #### L [id number] ####[facility] [id number] [address] [facility] CASE NUMBER PD-L1 [id number] Normal [facility] Comment on above: Order Comment: Speci men Type: TISSUE SPECIMENOrdering Facility: [facility] Address: [address] [place], [place] [address] Performed By: #### L [id number] ####[facility] LABCLIA [id number] [address] [address] [place] FINAL PERFORMING LAB Normal [facility] Comment on above: Order Comment: Speci men Type: TISSUE SPECIMENOrdering Facility: [facility] Address: [address] [place] [address] Result Comment: Diag nostic interpretation performed at: [facility], [address] [place] [address] [place] [address] CLIA# [id number] [place]: Padilla López MD Electronically signed out by: William Araujo MD Performed By: #### L [id number] ####[facility] LABCLIA [id number] [place] [address] [place] Result Comment: Diag nostic interpretation performed at: [facility], [address] [place], [place] [address] CLIA# [id number] [place]: Padilla López MD Performed By: #### 6 6121-5 ####[facility] LABCLIA [id number] [place] [id number] [place] FIXATIVE Formalin, 10% Neutra l Buffered Normal [facility] Comment on above: Order Comment: Speci men Type: TISSUE SPECIMENOrdering Facility: [facility] Address: [address] [place] [address] Performed By: #### L [id number] ####[facility] LABCLIA [id number] [place] [id number] [place] PD-L1 22C3 TPS (LUNG) INTERPRETATION Negative Normal [facility] Comment on above: Order Comment: Speci men Type: TISSUE SPECIMENOrdering Facility: [facility] Address: [address] [place] [address] Performed By: #### L [id number] ####[facility] LABCLIA [id number] [address] OF [place] PD-L1 TUMOR TYPE Other (See Comment) Normal [facility] Comment on above: Order Comment: Speci men Type: TISSUE SPECIMENOrdering Facility: [facility] Address: [address] [place] [address] Performed By: #### L [id number] ####[facility] LABIA [id number] [address] TUMOR PROPORTION SCORE (TPS) 0 Normal [facility] Comment on above: Order Comment: Speci men Type: TISSUE SPECIMENOrdering Facility: [facility] Address: [address] [place] [address] Performed By: #### L [id number] ####[facility] [id number] [address] [place] Pathology biopsy report Meño (Tiss)on 11-20-2024 ADDENDUM 1: Normal [facility] Comment on above: Order Comment: Speci men Type: TISSUE SPECIMENOrdering Facility: [facility] Address: [address] [place] [address] Result Comment: This addendum is issued to report that an immunohistochemical stain for p40 was performed to confirm the squamous immunophenotype of the tumor cells, which are diffusely positive for this marker. The above diagnosis remains unchanged. 11/24/2024 Laboratory Developed Test (LDT) Disclaimer: Performance characteristics of immunohistochemical, immunofluorescent and chromogenic in-situ hybridization tests have been determined by the performing laboratory within [facility]???s [facility] Pathology and Laboratory Medicine [place] ([facility], [facility], [facility] or [facility]) in a manner consistent with CLIA requirements. One or more of these tests have not been cleared or approved by the FDA. RT-PLMI is regulated under CLIA as qualified to perform high-complexity testing. These tests are used for clinical purposes. They should not be regarded as investigational or for research. Positive and negative controls stain appropriately. Addendum electronically signed by William Araujo V, MD on 11/24/2024 at 1049 EDT Performed By: #### 6 6121-5 ####[facility] LABIA [id number] [place] [address] [place] AP DISCLAIMER Normal [facility] Comment on above: Order Comment: Speci men Type: TISSUE SPECIMENOrdering Facility: [facility] Address: [address] [place] [address] Result Comment: Babita carter Developed Test (LDT) Disclaimer: Performance characteristics of immunohistochemical, immunofluorescent, and chromogenic in-situ hybridization tests have been determined by the performing laboratory within [facility]'s [facility] Pathology and Laboratory Medicine Department ([facility], [facility], [facility], [facility], [facility], [facility], or [facility]) in a manner consistent with CLIA requirements. One or more of these tests may not have been cleared or approved by the FDA. RT-PLM is regulated under CLIA as qualified to perform high-complexity testing. These tests are used for clinical purposes. These should not be regarded as investigational or for research. Positive and negative controls stain appropriately. Performed By: #### 6 6121-5 ####[facility] LABIA [id number] [place] [address] [place] CASE REPORT Normal [facility] Comment on above: Order Comment: Speci men Type: TISSUE SPECIMENOrdering Facility: [facility] Address: [address] [place] [address] Result Comment: Surg [facility] Pathology Report Case: [id number] Authorizing Provider: Regina Robertson MD Collected: 11/20/2024 11:10 AM Ordering Location: Admitting Received: 11/20/2024 03:27 PM Pathologist: William Araujo V, MD Specimen: Lung, Right, Biopsy, BI EBBX Performed By: #### 6 6121-5 ####[facility] LABIA [id number] [place] [id number] [place] CLINICAL HISTORY Normal [facility] Comment on above: Order Comment: Ange hull Type: TISSUE SPECIMENOrdering Facility: [facility] Address: [address] [place] [address] Result Comment: Pre- op diagnosis: 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 OR/ 11/21/2024 at 1050 EDT Performed By: #### 6 6121-5 ####[facility] LABIA [id number] [address] OF [facility] GROSS DESCRIPTION Normal [facility] Comment on above: Order Comment: Ange hull Type: TISSUE SPECIMENOrdering Facility: [facility] Address: [address] [place] [address] Result Comment: Geovanny lopez, Right, Biopsy Received in formalin are multiple pieces of cardenas-red, soft tissue aggregating to 2.1 x 0.6 x 0.1 cm. Totally submitted in one cassette. Gross examination performed at [facility], [address] [place] [address] November 20, 2024 6:23 PM Performed By: #### 6 6121-5 ####[facility] [facility] [id number] [address] [facility] [place] CNOVon 11-17-2024 CNOV Office Visit (RADTSA ) -------- JATIN KOCH ([id number]) 1960 M Date Time Provider Department 11/17/24 1:00 PM EZRA LIZAMA During your visit today, we recorded the following information about you: Weight 86.9 kg Richardson Cantu RN 12/04/2024 11:40 PM Signed Pacemaker/Defibrillator? Yes Previous Cancer(s)? Basal cell carcinoma left forearm Previous Radiation?N Lupus/Scleroderma?N On body monitoring device? N PRITI Gonzalez Saju, MD 12/11/2024 6:04 AM Addendum Radiation Oncology - New Patient/Consult Note PATIENT NAME: Jatin Koch II PATIENT REQUESTING PHYSICIAN: Dr. Perez DIAGNOSIS: Locally advanced non-small cell lung cancer (squamous cell carcinoma arising from the right chest). PATIENT IDENTIFICATION: This patient was seen in the Department of Radiation Oncology at the [facility] with Ezra Lizama MD. He was accompanied today by his family. Final recommendations will be communicated back to the requesting physician by way of the shared medical record, or letter to requesting physician via US mail. HISTORY OF PRESENT ILLNESS: per note from Dr. Robertson on 11/15/2024: 'Jatin Koch II is a 64 year old male with known right lung squamous cell carcinoma who is here to discuss next steps with the obstruction. Jatin presents with a chronic dry cough that began in June. Initially, he sought treatment at urgent care facilities and was evaluated for COVID-19 and influenza A and B, but the cough persisted. Due to the lack of improvement, his scheduled an appointment with a smoke inspector, who ordered a CT scan with contrast. During this period, Jatin's SpO2 dropped to 88%, prompting a visit to the ER, where a CT scan with contrast was performed. 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 A subsequent PET scan showed no metastasis. Jatin was also diagnosed with pneumonia beyond the mass and was prescribed levofloxacin. He has had one appointment with an oncologist and is scheduled to see both the oncologist and a radiation oncologist on Wednesday. In addition to his cancer diagnosis, Jatin recently had a pacemaker implanted on 11/09/24 due to complete heart block, which was an emergency procedure. He reports feeling 100% better since the pacemaker was placed. He denies any chest pain or pressure since the pacemaker implantation and has no history of stents or other cardiac interventions. He is able to ambulate without assistance and can climb a flight of stairs without difficulty. He sleeps flat with one pillow and denies any issues with laying flat. Jatin has a history of hypertension and arthritis affecting his hips and knees. He is not diabetic and has no known indications for anticoagulation. He recently discontinued meloxicam and cyclobenzaprine, which were prescribed for muscle spasms and pain in his back, hips, and knees. He is currently on a tapered dose of prednisone and is nearing the completion of a 14-day course of levofloxacin. He has a nebulizer at home but is no longer using an albuterol inhaler, as it was deemed ineffective due to the tumor. He has allergies to codeine and sulfa.' He is scheduled for a bronchoscopy next week on 11/20/2024 and is referred today to the radiation medicine clinic to have a discussion regarding the role of radiation therapy in the definitive treatment of his locally advanced lung cancer. INTERVAL HISTORY: The patient has noted increased cough and shortness of breath but denies any hemoptysis or chest pain or difficulty swallowing. He does note an approximate 30 pound weight loss since July. He also reports having been diagnosed with complete heart block requiring pacemaker. 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) 10/2024 PAST SURGICAL HISTORY: PAST SURGICAL HISTORY Procedure Laterality Date PACEMAKER REVISE MEDIAN N/CARPAL TUNNEL SURG Bilateral TRANSURETHRAL ELEC-SURG PROSTATECTOM FAMILY HISTORY: FAMILY HISTORY Problem Relation Age of Onset Melanoma Mother Arthritis Mother Heart disease Father COPD Sister SOCIAL HISTORY: Social History Tobacco Use Smoking status: Former Types: Cigarettes Start date: 2016 Passive exposure: Past Smokeless tobacco: Never Substance Use Topics Alcohol use: Not Currently Comment: rarely Drug use: Never RADIATION HISTORY: The patient denies any history of therapeutic radiation. ALLERGIES: ALLERGIES Allergen Reactions Sulfamethoxazole Other: See Comments, Unknown Urinary retention Zapata (more content not included)... Normal [facility] CNOVSPon 11-17-2024 CNOVSP Visit (SP) Office (HEMASA) -------- JATIN KOCH ([id number]) 1960 M Date Time Provider Department 11/17/24 2:00 PM KVNG PEREZ During your visit today, we recorded the following information about you: Temperature Pulse Respiration Blood pressure 98 degrees 105/minute 16/minute 100/67 Weight Height 86.9 kg 1.695 m Kvng Perez MD 11/17/2024 3:17 PM Addendum PATIENT NAME: Jatin Koch II CLINIC NO.: [id number] ATTENDING PHYSICIAN: Kvng Perez MD DATE OF SERVICE: 11/17/[address] Chip Carbajal [address] [place] [address] thank you for referring Jatin Koch II for an opinion regarding Lung cancer. Some of the elements of this note have been copied from my previous progress note dated 10/27/24 . All the information has been reviewed carefully. CHIEF COMPLAINT: Lung cancer HPI: Jatin Koch II is a 63 year old year old male with PMH of HTN referred to us for lung cancer. CT chest : PET scan: C/o cough and lost 30lbs. Quit smoking in 2017. Smoked 1 pk/day for 40yrs. 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 C/o hemoptysis. C/o mild dysphagia. 11/17/24: - Recently had a pacemaker implanted on 11/09/24 due to complete heart block, which was an emergency procedure. He reports feeling 100% better since the pacemaker was placed. - Scheduled for bronchoscopy on 11/20/24. - Doing well. - Cough is better. Current Outpatient Medications Medication Sig levoFLOXacin (LEVAQUIN) 750 mg tablet Take 750 mg by mouth. meclizine (ANTIVERT) 25 mg tab Take 25 mg by mouth three times a day. fluticasone propionate (FLONASE NASAL) Use in the nose once daily. Acetaminophen 500 mg cap Take 500 mg by mouth once daily. Takes aout 6 a day diphenhydramine HCl (ALLERGY MEDICATION ORAL) Take by mouth once daily. MEN'S MULTI-VITAMIN ORAL Take by mouth once daily. Benzonatate 200 mg capsule cyclobenzaprine (FLEXERIL) 10 mg tablet Take 10 mg by mouth at bedtime as needed. meloxicam (MOBIC) 7.5 mg tablet Take 7.5 mg by mouth once daily. metoprolol succinate ER (TOPROL XL) 25 mg 24 hr tablet Take 25 mg by mouth. predniSONE (DELTASONE) 20 mg tablet No current facility-administered medications for this visit. 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 No night sweats. HEENT: Negative for headaches, No changes in hearing or vision, no nose bleeds or other nasal problems. RESPIRATORY: Positive for cough, and shortness of breath CARDIOVASCULAR: Negative for [...] of hands/feet. No weakness. PHYSICAL EXAMINATION: BP 100/67 Pulse 105 Temp 36.7 ?C (98 ?F) (Temporal) Resp 16 Ht 169.5 cm (5' 6.73 ) Wt 86.9 kg (191 lb 9.3 oz) SpO2 99% BMI 30.25 kg/m? There were no vitals taken for [...] Abdomen soft, non-tender. No masses, organomegaly Extremities: N (more content not included)... Normal [facility] 11-17-2024 [facility] Tele[facility] ([facility] -------- JATIN KOCH ([id number]) 1960 M Date Time Provider Department 11/17/24 KVNG PEREZ [facility] During your visit today, we recorded the following information about you: Radha Perdue 11/17/2024 3:02 PM Signed Will schedule once RTC date is deteremined for XRT. Radha Torres 11/20/2024 2:16 PM Signed SIM scheduled for 11/23 -- Education w/ Tiffanie scheduled on 11/30 (Tiff was out on the ). Patient notified of ed appt. Radha Torres 11/23/2024 1:46 PM Signed Per appointments, pt's SIM was rescheduled to 11/30. aRdha Perdue MannjeanneRadha 11/29/2024 4:02 PM Signed SIM rescheduled to 12/08. Nette Radha 12/12/2024 11:04 AM Signed Patient scheduled. Radha Perdue Allergies As of Date: 11/17/2024 Noted Allergy Reaction SULFAMETHOXAZOLE 10/25/2024 14 - Other: See Comments 16 - Unknown Comments: Urinary retention SULFAMETHOXAZOLE-TRIMETH OPRIM 12/17/2016 14 - Other: See Comments CODEINE 10/25/2024 14 - Other: See Comments Comments: sweats Date Reviewed: 11/17/2024 Reviewed by: Naz Hooks MA - Fully Assessed Reason for Visit: Appointment [186] Prescriptions as of 12/12/2024 - prochlorperazine (COMPAZINE) 10 mg tablet Take 1 tablet by mouth every 6 hours as needed. - ondansetron (ZOFRAN) 8 mg tablet Take 1 tablet by mouth every 8 hours as needed for nausea/vomiting. - HERBAL DRUGS MISC 1 capsule once daily. Moringa/Soursop - OTC PRODUCT THC 5mg TID - appetite, pain, energy - loratadine 10 mg dissolvable tablet Take 10 mg by mouth once daily. - albuterol HFA (PROVENTIL HFA, VENTOLIN HFA) 90 mcg/actuation inhaler Inhale 2 puffs as instructed every 4 hours as needed for wheezing/shortness of breath. - dextromethorphan-guaiFEN esin (MUCINEX DM) 30-600 mg per tablet Take 2 tablets by mouth two times a day. - meclizine (ANTIVERT) 25 mg tab Take 25 mg by mouth three times a day as needed. - fluticasone propionate (FLONASE NASAL) Use in the nose once daily. - Acetaminophen 500 mg cap Take 1,000 mg by mouth four times a day as needed for pain. - MEN'S MULTI-VITAMIN ORAL Take by mouth once daily. - Benzonatate 200 mg capsule Take 200 mg by mouth three times a day as needed for cough. - metoprolol succinate ER (TOPROL XL) 25 mg 24 hr tablet Take 25 mg by mouth. Problem List As Of Date 11/17/2024 Noted Resolved CALCIF TENDINITIS SHLDER [M75.30] 03/25/2006 ROTATOR CUFF SYND NOS [M71.9, M67.919] 03/25/2006 ULNAR NERVE LESION [G56.20] 03/25/2006 CARPAL TUNNEL SYNDROME [G56.00] 03/25/2006 Malignant neoplasm of lower lobe of right lung *11/17/2024 Encounter Status:Closed [facility] RAD[facility] JAT[facility] KOCH ([id number]) 1960 M Date Time Provider Department 11/17/24 EZRA LIZAMA During your visit today, we recorded the following information about you: Richardson Cantu RN 11/17/2024 2:34 PM Signed PSS/RT: please schedule SIM 11/23 treating lung with IV contrast, esophageal contrast, 4DCT Consent signed Needs nurse appt for IV start day of SIM Nurse ed today Partnership Manager consult(order pending signature) Thanks PRITI Gonzalez Denise A, Tech 11/17/2024 3:12 PM Signed PSS- I scheduled Lung Sim on 11/23/2024 at 3:00pm Nurse visit at 2:45pm for IV contrast Arrival time of 2:30pm, No special instructions. Thank you, Rihcardson Saucedo RN 11/17/2024 4:01 PM Signed Patient states he has already met with the pyridine operator and has upcoming follow up. PRITI Gonzalez Jodi 11/20/2024 8:03 AM Signed Spoke to Patient, arrival time of 230pm on 11/23 and no special instructions Allergies As of Date: 11/17/2024 Noted Allergy Reaction SULFAMETHOXAZOLE 10/25/2024 14 - Other: See Comments 16 - Unknown Comments: Urinary retention SULFAMETHOXAZOLE-TRIMETH OPRIM 12/17/2016 14 - Other: See Comments CODEINE 10/25/2024 14 - Other: See Comments Comments: sweats Date Reviewed: 11/17/2024 Reviewed by: Naz Hooks MA - Fully Assessed Reason for Visit: Appointment [186] Prescriptions as of 11/20/2024 - levoFLOXacin (LEVAQUIN) 750 mg tablet Take 750 mg by mouth. - meclizine (ANTIVERT) 25 mg tab Take 25 mg by mouth three times a day. - fluticasone propionate (FLONASE NASAL) Use in the nose once daily. - Acetaminophen 500 mg cap Take 500 mg by mouth once daily. Takes aout 6 a day - diphenhydramine HCl (ALLERGY MEDICATION ORAL) Take by mouth once daily. - MEN'S MULTI-VITAMIN ORAL Take by mouth once daily. - Benzonatate 200 mg capsule - cyclobenzaprine (FLEXERIL) 10 mg tablet Take 10 mg by mouth at bedtime as needed. - meloxicam (MOBIC) 7.5 mg tablet Take 7.5 mg by mouth once daily. - metoprolol succinate ER (TOPROL XL) 25 mg 24 hr tablet Take 25 mg by mouth. - predniSONE (DELTASONE) 20 mg tablet Problem List As Of Date 11/17/2024 Noted Resolved CALCIF TENDINITIS LAKEISHA [M75.30] 03/25/2006 ROTATOR CUFF SYND NOS [M71.9, M67.919] 03/25/2006 ULNAR NERVE LESION [G56.20] 03/25/2006 CARPAL TUNNEL SYNDROME [G56.00] 03/25/2006 Malignant neoplasm of lower lobe of right lung *11/17/2024 Encounter Status:Closed by RICHARDSON CANTU on 11/20/24 Normal [facility] CNOVon 11-15-2024 CNOV Office Visit (PMNA11 ) -------- JATIN KOCH ([id number]) 1960 M Date Time Provider Department 11/15/24 11:00 AM REGINA ROBERTSON PMNA11 During your visit today, we recorded the following information about you: Temperature Pulse Respiration Blood pressure 97.2 degrees 85/minute 20/minute 111/66 Weight 87.7 kg Regina Robertson MD 11/15/2024 12:09 PM Addendum INTERVENTIONAL PULMONARY MEDICINE CONSULTATION PLEASE DO NOT REMOVE FROM THE CHART OR MODIFY PRINTED COPY Patient Name: Jatin Koch II PRIMARY CARE PHYSICIAN: Carlos Collins APRN.EMPLOYMENT COACH REFERRING PHYSICIAN: Dr. 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 My final recommendations/evaluati on will be communicated back to the requesting physician by way of shared medical record or letter via US mail. Recording using [employer] software for draft documentation of the visit was discussed with the patient/authorized sales utility representative; all questions welcomed and answered. Patient/authorized sales utility representative agreed to proceed CHIEF COMPLAINT: Bronchial obstruction with tumor HISTORY OF PRESENT ILLNESS: Jatin Koch II is a 64 year old male with known right lung squamous cell carcinoma who is here to discuss next steps with the obstruction. Jatin presents with a chronic dry cough that began in June. Initially, he sought treatment at urgent care facilities and was evaluated for COVID-19 and influenza A and B, but the cough persisted. Due to the lack of improvement, his scheduled an appointment with a smoke inspector, who ordered a CT scan with contrast. During this period, Jatin's SpO2 dropped to 88%, prompting a visit to the ER, where a CT scan with contrast was performed. 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 A subsequent PET scan showed no metastasis. Jatin was also diagnosed with pneumonia beyond the mass and was prescribed levofloxacin. He has had one appointment with an oncologist and is scheduled to see both the oncologist and a radiation oncologist on Wednesday. In addition to his cancer diagnosis, Jatin recently had a pacemaker implanted on 11/09/24 due to complete heart block, which was an emergency procedure. He reports feeling 100% better since the pacemaker was placed. He denies any chest pain or pressure since the pacemaker implantation and has no history of stents or other cardiac interventions. He is able to ambulate without assistance and can climb a flight of stairs without difficulty. He sleeps flat with one pillow and denies any issues with laying flat. Jatin has a history of hypertension and arthritis affecting his hips and knees. He is not diabetic and has no known indications for anticoagulation. He recently discontinued meloxicam and cyclobenzaprine, which were prescribed for muscle spasms and pain in his back, hips, and knees. He is currently on a tapered dose of prednisone and is nearing the completion of a 14-day course of levofloxacin. He has a nebulizer at home but is no longer using an albuterol inhaler, as it was deemed ineffective due to the tumor. He has allergies to codeine and sulfa. PAST MEDICAL HISTORY Diagnosis Date Arthritis History [...] Alcohol use: Not Currently Drug use: Never ALLERGIES: ALLERGIES Allergen Reactions Sulfamethoxazole Other: See Comments, Unknown Sulfamethoxazole-Tr* Other: See Comments Codeine Other: See Comments CURRENT OUTPATIENT MEDICATIONS: levoFLOXacin (LEVAQUIN) 750 mg tablet Take 750 mg by mouth. meclizine (ANTIVERT) 25 mg tab Take 25 mg by mouth three times a day. fluticasone propionate (FLONASE NASAL) Use in the nose once daily. Acetaminophen 500 mg cap Take 500 mg by mouth once daily. Takes aout 6 a day diphenhydramine HCl (ALLERGY MEDICATION ORAL) Take by mouth once daily. MEN'S MULTI-VITAMIN ORAL Take by mouth once daily. Benzonatate 200 mg capsule cyclobenzaprine (FLEXERIL) 10 mg tablet Take 10 mg by mouth at bedtime as needed. meloxicam (MOBIC) 7.5 mg tablet Take 7.5 mg by mouth once daily. metoprolol succinat (more content not included)... Normal [facility] NURSING PROGon 06-02-2025 NURSING PROG HNO ID: [id number] Author: CATHIE SHAFFER RN Service: Nursing Author Type: Registered Nurse Type: Nursing Progress Note Filed: 11/13/2024 09:44 Note Text: AMBULATORY PATIENT EDUCATION TOPIC: Bronchoscopy READINESS TO LEARN COGNITIVE ABILITY: Alert and oriented MOTIVATION TO LEARN: Eager Interested FAMILY SUPPORT: Moderate - Family present but overwhelmed INSTRUCTION PROVIDED TO: Patient PATIENT LEARNS BEST BY: Verbal Instruction FACTORS AFFECTING LEARNING: None PHYSICAL LIMITATIONS AFFECTING LEARNING: None LEARNING RESPONSE DIAGNOSIS: Lung Disease METHOD OF INSTRUCTION: Verbal instruction PATIENT / FAMILY RESPONSE: Verbalizes understanding of: PRE-PROCEDURE INSTRUCTIONS-Correct action to take to follow pre-procedure instructions FOLLOW-UP PLAN: Complete - No need for follow-up REFERRAL (RECOMMENDATION): None Drug and Disease specific literature provided. Time Spent 5 minutes. Electronically Signed By: Cathie Shaffer RN [facility] 11-14-19 25 [facility] Case Information Case Priority: None Programs: -- Referral Source: Will Call Order Clerk Referral Reason: Care coordination Case Type: Transition Care Management Risk Score: -- Case Status: Enrolled (November 08, 2024) Date Assigned: November 07, 2024 Assigned By: Gordo Humphries Date Enrolled: November 08, 2024 Assigned Primary Personnel: Gordo Humphries Assigned Secondary Personnel: -- Case Physician: Carlos Sehti Problems Ongoing Arthritis BMI 31.0-31.9,adult BPH with urinary obstruction Encounter to establish care Flank pain Former smoker Gout Head injury History of kidney stones Hospital discharge follow-up 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 Home Medications Albuterol (Eqv-Proventil HFA) 90 mcg/inh inhalation aerosol benzonatate 200 mg oral capsule cyclobenzaprine 10 mg Tab levofloxacin 750 mg Tab meclizine 25 mg Tab meloxicam 7.5 mg Tab, 7.5 mg= 1 tab(s), Oral, Daily metoprolol succinate 25 mg ER Tab, 25 mg= 1 tab(s), Oral, Daily Multi Vitamin+ predniSONE 10 mg Tab, Oral, As Directed Allergies codeine (Sweating) Bactrim (Unable to void) Pollen (Watery eye, Eye swelling) sulfamethoxazole (Unknown, Unable to urinate) Social History Alcohol Never., 10/13/2024 Substance Abuse Never., 10/13/2024 Tobacco Former smoker, quit more than 30 days ago, quit 2017 Tobacco Use:., 10/13/2024 Family History Acute myocardial infarction: Father. Hypertension: Father. Screenings and Assessments 11/08/24 11:06:00 Result Name Value Comment Phone Call Monitoring Consent Agreed to continue call Phone Verification Patient Information Full name, street address and date of verified CM Program Enrollment Provides verbal consent for enrollment Goals and Interventions Care Plan Progress Note TCM#2- Spoke with patient for status update, states he is doing 'alright.' Notes he had some testing at [facility] this morning (labs, US, CT scan). Patient denies any SOB, breathing difficulties, or chest discomfort. Denies weakness. Notes he had a PCM inserted at [facility] last and that it went without complications. Patient does report some discomfort from procedure, as to be excpeted. Notes he has follow ups in place for PCM. Patient reports he feels 'a lot better now.' Reports BP is 'fantastic.' Patient has a consult with [facility] on 11/15/24 and is scheduled for out patient surgery on 11/20/24, having right lung mass removed at [facility]. Patient denies any further questions or concerns at this time and is appreciative of follow up call. Communication Events Date: November 13, 2024 Method: Phone call Type: Outbound Duration (min): 7 Outcome: Case discussion Contact Type: Patient Contact Name: JEFFREYWALE COTY JATIN Suly Notes: TCM#2- see tcm note. Created By: Gordo Humphries [facility] CBC WITH AUTO DIFFERENTIALon 11-09-2024 CELLAVISION DIFFERENTIAL TYPE CELLAVISION DIFFERENTIAL Normal [facility] Comment on above: Result Comment: This is an appended report. These results have been appended to a previously preliminary verified report. Performed By: #### C BCA #### [facility] ([facility]) [address] [place] [address] VIR CELLAVISION EOSINOPHILS ABSOLUTE COUNT (10*3/UL) BY MANUAL COUNT 0.2 10*3/uL Normal 0.0-0.4 [facility] Comment on above: Result Comment: This is an appended report. These results have been appended to a previously preliminary verified report. Performed By: #### C BCA #### [facility] ([facility]) [address] [place] [address] VIR CELLAVISION EOSINOPHILS PERCENT BY MANUAL COUNT 1 % Normal [facility] Comment on above: Result Comment: This is an appended report. These results have been appended to a previously preliminary verified report. Performed By: #### C BCA #### [facility] ([facility]) [address] [place] [address] VIR CELLAVISION LYMPHOCYTES ABSOLUTE COUNT (10*3/UL) BY MANUAL COUNT 1.8 10*3/uL Normal 1.0-3.5 [facility] Comment on above: Result Comment: This is an appended report. These results have been appended to a previously preliminary verified report. Performed By: #### C BCA #### [facility] ([facility]) [address] [place] [address] VIR CELLAVISION LYMPHOCYTES RELATIVE PERCENT BY MANUAL COUNT 11 % Normal [facility] Comment on above: Result Comment: This is an appended report. These results have been appended to a previously preliminary verified report. Performed By: #### C BCA #### [facility] ([facility]) [address] [place] [id number] VIR CELLAVISION METAMYELOCYTES RELATIVE PERCENT BY MANUAL COUNT 2 % Normal [facility] Comment on above: Result Comment: This is an appended report. These results have been appended to a previously preliminary verified report. Performed By: #### C BCA #### [facility] ([facility]) [address] [place] [address] VIR CELLAVISION MONOCYTES ABSOLUTE COUNT (10*3/UL) IN BLOOD BY MANUAL COUNT 1.8 10*3/uL High 0.0-0.9 [facility] Comment on above: Result Comment: This is an appended report. These results have been appended to a previously preliminary verified report. Performed By: #### C BCA #### [facility] ([facility]) [address] [place] [address] VIR CELLAVISION MONOCYTES RELATIVE PERCENT BY MANUAL COUNT 11 % Normal [facility] Comment on above: Result Comment: This is an appended report. These results have been appended to a previously preliminary verified report. Performed By: #### C BCA #### [facility] ([facility]) [address] [place] [address] VIR CELLAVISION MYELOCYTE RELATIVE PERCENT BY MANUAL COUNT 1 % Normal [facility] Comment on above: Result Comment: This is an appended report. These results have been appended to a previously preliminary verified report. Performed By: #### C BCA #### [facility] ([facility]) [address] [place] [address] VIR CELLAVISION NEUTROPHILS ABSOLUTE COUNT BY MANUAL COUNT 11.5 10*3/uL High 1.5-6.6 [facility] Comment on above: Result Comment: This is an appended report. These results have been appended to a previously preliminary verified report. Performed By: #### C BCA #### [facility] ([facility]) [address] [place] [address] VIR CELLAVISION NEUTROPHILS RELATIVE PERCENT BY MANUAL COUNT 73 % Normal [facility] Comment on above: Result Comment: This is an appended report. These results have been appended to a previously preliminary verified report. Performed By: #### C BCA #### [facility] ([facility]) [address] [place] [address] VIR CELLAVISION RBC MORPHOLOGY Normal Normal [facility] Comment on above: Result Comment: This is an appended report. These results have been appended to a previously preliminary verified report. Performed By: #### C BCA #### [facility] ([facility]) [address] [place] [address] VIR Erythrocyte distribution width (RBC) [Ratio] 16.5 % High 11.5-15 [facility] Comment on above: Performed By: #### C BCA #### [facility] ([facility]) [address] [place] [address] VIR Hematocrit (Bld) [Volume fraction] 35.1 % Low 39-50 [facility] Comment on above: Performed By: #### C BCA #### [facility] ([facility]) [address] [place] [address] VIR Hemoglobin (Bld) [Mass/Vol] 11.7 g/dL Low 13-17 [facility] Comment on above: Performed By: #### C BCA #### [facility] ([facility]) [address] [place] [address] VIR MCH (RBC) [Entitic mass] 27.6 pg Normal 27-34 [facility] Comment on above: Performed By: #### C BCA #### [facility] ([facility]) [address] [place] [address] VIR MCHC (RBC) [Mass/Vol] 33.4 g/dL Normal 32-36 [facility] Comment on above: Performed By: #### C BCA #### [facility] ([facility]) [address] [place] [address] VIR MCV (RBC) [Entitic vol] 83 fL Normal 80-100 [facility] Comment on above: Performed By: #### C BCA #### [facility] ([facility]) [address] [place] [address] VIR Platelet mean volume (Bld) [Entitic vol] 6.9 fL Low 7-12 [facility] Comment on above: Performed By: #### C BCA #### [facility] ([facility]) [address] [place] [address] VIR Platelets (Bld) [#/Vol] 254 10*3/uL Normal 150-450 [facility] Comment on above: Performed By: #### C BCA #### [facility] ([facility]) [address] [place] [address] VIR RBC COUNT 4.25 X10E12/L Normal 4.1-5.7 [facility] Comment on above: Performed By: #### C BCA #### [facility] ([facility]) [address] [place] [address] VIR WBC (Bld) [#/Vol] 15.7 10*3/uL High 4-11 [facility] Comment on above: Performed By: #### C BCA #### [facility] ([facility]) [address] [place] [address] VIR COMPREHENSIVE METABOLIC PANE Paul 11-09-2024 Albumin [Mass/Vol] 3.4 g/dL Normal 3.2-5.3 [facility] Comment on above: Performed By: #### C MP #### [facility] ([facility]) [address] [place] [address] VIR ALP [Catalytic activity/Vol] 53 U/L Normal 39-130 [facility] Comment on above: Performed By: #### C MP #### [facility] ([facility]) [address] [place] [address] VIR ALT [Catalytic activity/Vol] 26 U/L Normal <=40 [facility] Comment on above: Performed By: #### C MP #### [facility] ([facility]) [address] [place] [address] VIR Anion gap [Moles/Vol] 10 mmol/L Normal 5-15 [facility] Comment on above: Performed By: #### C MP #### [facility] ([facility]) [address] [place] [address] VIR AST [Catalytic activity/Vol] 13 U/L Normal <=41 [facility] Comment on above: Performed By: #### C MP #### [facility] ([facility]) [address] [place] [address] VIR Bilirubin [Mass/Vol] 0.4 mg/dL Normal 0.3-1.2 [facility] Comment on above: Performed By: #### C MP #### [facility] ([facility]) [address] [place] [address] VIR Calcium [Mass/Vol] 8.6 mg/dL Normal 8.5-10.5 [facility] Comment on above: Performed By: #### C MP #### [facility] ([facility]) [address] [place] [address] VIR Chloride [Moles/Vol] 100 mmol/L Normal 98-109 [facility] Comment on above: Performed By: #### C MP #### [facility] ([facility]) [address] [place] [address] VIR CO2 [Moles/Vol] 28 mmol/L Normal 22-32 [facility] Comment on above: Performed By: #### C MP #### [facility] ([facility]) [address] [facility] [address] [address] [place] [address] VIR Creatinine [Mass/Vol] 0.65 mg/dL Normal 0.60-1.30 [facility] Comment on above: Result Comment: METH OD TRACEABLE TO IDMS STANDARD Performed By: #### C MP #### [facility] ([facility]) [address] [place] [address] VIR EGFR (CKD-EPI) NON-RACE DEPENDENT >^90 Normal >=60 [facility] Comment on above: Result Comment: Repo rted eGFR is based on the CKD-EPI 2020 equation that does not use a race coefficient. Performed By: #### C MP #### [facility] ([facility]) [address] [place] [address] VIR Glucose [Mass/Vol] 104 mg/dL High 65-99 [facility] Comment on above: Performed By: #### C MP #### [facility] ([facility]) [address] [place] [address] VIR Potassium [Moles/Vol] 4.2 mmol/L Normal 3.5-5.0 [facility] Comment on above: Performed By: #### C MP #### [facility] ([facility]) [address] [place] [address] VIR Protein [Mass/Vol] 5.8 g/dL Low 6.0-8.0 [facility] Comment on above: Performed By: #### C MP #### [facility] ([facility]) [address] [place] [address] VIR Sodium [Moles/Vol] 138 mmol/L Normal 134-146 [facility] Comment on above: Performed By: #### C MP #### [facility] ([facility]) [address] [place] [address] VIR Urea nitrogen [Mass/Vol] 25 mg/dL Normal 5-27 [facility] Comment on above: Performed By: #### C MP #### [facility] ([facility]) [address] [place] [address] VIR LACTATE W/ REFLEXon 11-10-19 25 LACTATE W/REFLEX 1.1 mmol/L Normal 0.4-2.0 [facility] Comment on above: Order Comment: Resul t did not trigger repeat Lactate, re-order if needed. Performed By: #### L ACTS #### [facility] ([facility]) [address] [place] [address] VIR PROCALCITONINon 11-09-2024 PROCALCITONIN 0.08 ng/mL High <0.05 [facility] Comment on above: Order Comment: <0.50 ng/mL - Low risk of severe sepsis and/or septic shock. <2.00 ng/mL - Recommend retesting within 6-24 hours. >2.00 ng/mL - High risk of sepsis and/or septic shock. Performed By: #### P GLENDY #### [facility] ([facility]) [address] [place] [address] VIR XR CHEST 2 VWSon 11-09-2024 XR CHEST 2 VWS XR CHEST 2 VWS History: check for pneumothorax Exam/Technique: PA and lateral chest Comparison: None. Findings: Basal changes bilaterally with the right lower lobe/pneumonic consolidation. Cardiac and mediastinal contours are within normal limits. Pacemaker on the left. IMPRESSION: Basal consolidation consistent with pneumonia. No pneumothorax. Finalized by Eliud Colin MD on 11/09/2024 4:20 PM Normal [facility] APTTon 11-08-2024 aPTT Coag (Bld) [Time] 25 s Low 26-37 [facility] Comment on above: Performed By: #### P TT #### [facility] ([facility]) [address] [place] [address]. [place] [address] VIR B-TYPE NATRIURETIC PEPTIDEon 11-08-2024 Natriuretic peptide B (Bld) [Mass/Vol] 64 pg/mL Normal <=100 [facility] Comment on above: Performed By: #### B REVENUE RESEARCH ANALYST #### [facility] ([facility]) [address] [place], [place] [address]. [place] [address] VIR CBC WITH AUTO DIFFERENTIALon 11-08-2024 CELLAVISION BASOPHILS ABSOLUTE COUNT (10*3/UL) BY MANUAL COUNT 0.8 10*3/uL High 0.0-0.2 [facility] Comment on above: Result Comment: This is an appended report. These results have been appended to a previously preliminary verified report. Performed By: #### C BCA #### [facility] ([facility]) [address] [place] [address]. [place] [address] VIR CELLAVISION BASOPHILS RELATIVE PERCENT BY MANUAL COUNT 5 % Normal [facility] Comment on above: Result Comment: This is an appended report. These results have been appended to a previously preliminary verified report. Performed By: #### C BCA #### [facility] ([address] [address] VIR CELLAVISION DIFFERENTIAL TYPE CELLAVISION DIFFERENTIAL Normal [facility] Comment on above: Result Comment: This is an appended report. These results have been appended to a previously preliminary verified report. Performed By: #### C BCA #### [facility] ([address] [address] VIR CELLAVISION EOSINOPHILS ABSOLUTE COUNT (10*3/UL) BY MANUAL COUNT 0.2 10*3/uL Normal 0.0-0.4 [facility] Comment on above: Result Comment: This is an appended report. These results have been appended to a previously preliminary verified report. Performed By: #### C BCA #### [facility] ([address] [address] VIR CELLAVISION EOSINOPHILS PERCENT BY MANUAL COUNT 1 % Normal [facility] Comment on above: Result Comment: This is an appended report. These results have been appended to a previously preliminary verified report. Performed By: #### C BCA #### [facility] ([address] [address] VIR CELLAVISION LYMPHOCYTES ABSOLUTE COUNT (10*3/UL) BY MANUAL COUNT 1.7 10*3/uL Normal 1.0-3.5 [facility] Comment on above: Result Comment: This is an appended report. These results have been appended to a previously preliminary verified report. Performed By: #### C BCA #### [facility] ([address] [address] VIR CELLAVISION LYMPHOCYTES RELATIVE PERCENT BY MANUAL COUNT 9 % Normal [facility] Comment on above: Result Comment: This is an appended report. These results have been appended to a previously preliminary verified report. Performed By: #### C BCA #### [facility] ([facility]) [address] [place] [address] VIR CELLAVISION MONOCYTES ABSOLUTE COUNT (10*3/UL) IN BLOOD BY MANUAL COUNT 0.5 10*3/uL Normal 0.0-0.9 [facility] Comment on above: Result Comment: This is an appended report. These results have been appended to a previously preliminary verified report. Performed By: #### C BCA #### [facility] ([facility]) [address] [place] [address] VIR CELLAVISION MONOCYTES RELATIVE PERCENT BY MANUAL COUNT 3 % Normal [facility] Comment on above: Result Comment: This is an appended report. These results have been appended to a previously preliminary verified report. Performed By: #### C BCA #### [facility] ([address] [address] VIR CELLAVISION NEUTROPHILS ABSOLUTE COUNT BY MANUAL COUNT 14.4 10*3/uL High 1.5-6.6 [facility] Comment on above: Result Comment: This is an appended report. These results have been appended to a previously preliminary verified report. Performed By: #### C BCA #### [facility] ([address] [address] VIR CELLAVISION NEUTROPHILS RELATIVE PERCENT BY MANUAL COUNT 80 % Normal [facility] Comment on above: Result Comment: This is an appended report. These results have been appended to a previously preliminary verified report. Performed By: #### C BCA #### [facility] ([address] [address] VIR CELLAVISION PROMYELOCYTES RELATIVE PERCENT BY MANUAL COUNT 2 % Normal [facility] Comment on above: Result Comment: This is an appended report. These results have been appended to a previously preliminary verified report. Performed By: #### C BCA #### [facility] ([address] [place] [address] VIR Erythrocyte distribution width (RBC) [Ratio] 16.7 % High 11.5-15 [facility] Comment on above: Performed By: #### C BCA #### [facility] ([address] [place] [address] VIR Hematocrit (Bld) [Volume fraction] 36.6 % Low 39-50 [facility] Comment on above: Performed By: #### C BCA #### [facility] ([address] [address] VIR Hemoglobin (Bld) [Mass/Vol] 12.1 g/dL Low 13-17 [facility] Comment on above: Performed By: #### C BCA #### [facility] ([address] [address] VIR MCH (RBC) [Entitic mass] 27.6 pg Normal 27-34 [facility] Comment on above: Performed By: #### C BCA #### [facility] ([address] [address] VIR MCHC (RBC) [Mass/Vol] 32.9 g/dL Normal 32-36 [facility] Comment on above: Performed By: #### C BCA #### [facility] ([address] [address] VIR MCV (RBC) [Entitic vol] 84 fL Normal 80-100 [facility] Comment on above: Performed By: #### C BCA #### [facility] ([address] [address] VIR Platelet mean volume (Bld) [Entitic vol] 6.9 fL Low 7-12 [facility] Comment on above: Performed By: #### C BCA #### [facility] ([address] [address] VIR Platelets (Bld) [#/Vol] 281 10*3/uL Normal 150-450 [facility] Comment on above: Performed By: #### C BCA #### [facility] ([address] [place] [address] VIR RBC COUNT 4.37 X10E12/L Normal 4.1-5.7 [facility] Comment on above: Performed By: #### C BCA #### [facility] ([address] [place] [address] VIR WBC (Bld) [#/Vol] 18.0 10*3/uL High 4-11 [facility] Comment on above: Performed By: #### C BCA #### [facility] ([address] [place] [address] VIR COMPREHENSIVE METABOLIC PANE Paul 11-08-2024 Albumin [Mass/Vol] 3.1 g/dL Low 3.2-5.3 [facility] Comment on above: Performed By: #### C MP #### [facility] ([address] [place] [address] VIR ALP [Catalytic activity/Vol] 60 U/L Normal 39-130 [facility] Comment on above: Performed By: #### C MP #### [facility] ([address] [place] [address] VIR ALT [Catalytic activity/Vol] 41 U/L High <=40 [facility] Comment on above: Performed By: #### C MP #### [facility] ([address] [place] [address] VIR Anion gap [Moles/Vol] 9 mmol/L Normal 5-15 [facility] Comment on above: Performed By: #### C MP #### [facility] ([address] [place] [address] VIR AST [Catalytic activity/Vol] 19 U/L Normal <=41 [facility] Comment on above: Performed By: #### C MP #### [facility] ([address] [place] [address] VIR Bilirubin [Mass/Vol] 0.5 mg/dL Normal 0.3-1.2 [facility] Comment on above: Performed By: #### C MP #### [facility] ([address] [place] [address] VIR Calcium [Mass/Vol] 8.5 mg/dL Normal 8.5-10.5 [facility] Comment on above: Performed By: #### C MP #### [facility] ([address] [place] [address] VIR Chloride [Moles/Vol] 96 mmol/L Low 98-109 [facility] Comment on above: Performed By: #### C MP #### [facility] ([address] [place] [address] VIR CO2 [Moles/Vol] 24 mmol/L Normal 22-32 [facility] Comment on above: Performed By: #### C MP #### [facility] ([address] [place] [address] VIR Creatinine [Mass/Vol] 0.84 mg/dL Normal 0.70-1.20 [facility] Comment on above: Result Comment: METH OD TRACEABLE TO IDMS STANDARD Performed By: #### C MP #### [facility] ([address] [place] [address] VIR EGFR (CKD-EPI) NON-RACE DEPENDENT >^90 Normal >=60 [facility] Comment on above: Result Comment: eGFR not reported due to non-numeric value for Creatinine. Reported eGFR is based on the CKD-EPI 2021 equation that does not use a race coefficient. Performed By: #### C MP #### [facility] ([address] [place] [address] VIR Glucose [Mass/Vol] 134 mg/dL High 65-99 [facility] Comment on above: Performed By: #### C MP #### [facility] ([address] [place] [address] VIR Potassium [Moles/Vol] 4.2 mmol/L Normal 3.5-5.0 [facility] Comment on above: Performed By: #### C MP #### [facility] ([address] [place] [address] VIR Protein [Mass/Vol] 6.7 g/dL Normal 6.0-8.0 [facility] Comment on above: Performed By: #### C MP #### [facility] ([address] [place] [address] VIR Sodium [Moles/Vol] 129 mmol/L Low 134-146 [facility] Comment on above: Performed By: #### C MP #### [facility] ([address] [place] [address] VIR Urea nitrogen [Mass/Vol] 30 mg/dL High 5-27 [facility] Comment on above: Performed By: #### C MP #### [facility] ([address] [place] [address] VIR D-DIMERon 11-08-2024 D DIMER 175 ug/mL Normal 1-255 [facility] Comment on above: Result Comment: Resu lts <255 ng/mL DDU: The presensence of a VTE can safely be excluded with a negative D-Dimer result and Wells score. A negative result doesn't exclude the possibility of DIC. The test should be repeated along with other diagnostic tests if the patient's symptoms persist or worsen. Performed By: #### D DMR #### [facility] ([place] [address] [place] [address] VIR Family Medicine Office/Clini c Noteon 11-08-2024 Family Medicine Office/Clinic Note Family Medicine Office/Clinic Note [facility] Staff Jatin is a 64 year old male presenting for ER follow up [facility] Hospital: [facility] Visit date: 11/04/24 Discharge: 11/06/24 Discharge Dx: sepsis, pneumonia , arrhythmia Symptoms the patient presented with: Syncope Symptom onset/injury onset: Testing Performed: New medications: Prednisone, levofloxacin Current concerns: pt states he is feeling better a lot better. History of Present Illness pt presents today for hospital follow up. Review of Systems PHQ Score Initial Depression Screen Score: 0 SCORE Physical Exam Vitals & Measurements HR: 100(Peripheral) RR: 16 BP: 110/64 SpO2: 96% HT: 68 in HT: 172 cm WT: 94.9 kg WT: 209.218 lb BMI: 32.08 General: alert, no acute distress ENMT: oral mucosa moist, no pharyngeal erythema or exudate Cardiovascular: regular rate and rhythm, normal peripheral perfusion Respiratory: Lungs CTA, respirations non labored Extremities: no deformity, no trauma Neurological: oriented x 4, LOC appropriate for age, CN II-XII intact, motor strength equal & normal bilaterally, speech normal Assessment/Plan 1. Hospital discharge follow-up (Z09: Encounter for follow-up examination after completed treatment for conditions other than malignant neoplasm) pt presents today for hospital follow up. was recently diagnosed with lung cancer. he had 3 syncopal episodes. and was admitted for pneumonia and bradycardia and sepsis. we discussed plan of care. reviewed current meds. pt has cardiology and oncology appointments this week. all questions answered. emotional support provided. RTC 3 months. they will give all specialists our fax number so they can keep me in the loop. as of right now the plan is to remove nodule from lung then start chemo/radiation. they feel the nodule is pressing on vagal nerve which is causing the bradycardia and syncopal episodes. 2. Pneumonia (J18.9: Pneumonia, unspecified organism) pt was hospitalized and is currently being treated for pneumonia. taking Levaquin and prednisone. pt states he is feeling much better today. 3. Squamous cell lung cancer (C34.90: Malignant neoplasm of unspecified part of unspecified bronchus or lung) recently diagnosed with squamous cell lung cancer. will be following oncology at [facility] 4. Syncope (R55: Syncope and collapse) pt has halter monitor on is scheduled to see cardiology at 2:40 today 5. BMI 32.0-32.9,adult (Z68.32: Body mass index [BMI] 32.0-32.9, adult) BMI educaiton Ordered: TCM Trans care mgmt 7 day disch [id number] 6. Former smoker (Z87.891: Personal history of nicotine dependence) continue not smoking Ordered: TCM Trans care mgmt 7 day disch [id number] Follow-up No qualifying data available Problem List/Past Medical History Ongoing Arthritis BMI 31.0-31.9,adult BPH with urinary obstruction Encounter to establish care Flank pain Former smoker Gout Head injury History of kidney stones Hospital discharge follow-up Hx of care home use of blood thinners Kidney stones Microhematuria Pneumonia Renal cyst Screening PSA (prostate specific antigen) Squamous cell lung cancer Syncope Historical Hypothyroid Procedure/Surgical History TURP - Transurethral resection of prostate (05/17/2019), Cystoscopy (12/08/2018), Colonoscopy, Tonsillectomy. Medications Albuterol (Eqv-Proventil HFA) 90 mcg/inh inhalation aerosol benzonatate 200 mg oral capsule cyclobenzaprine 10 mg Tab levofloxacin 750 mg Tab meclizine 25 mg Tab meloxicam 7.5 mg Tab, 7.5 mg= 1 tab(s), Oral, Daily metoprolol succinate 25 mg ER Tab, 25 mg= 1 tab(s), Oral, Daily Multi Vitamin+ predniSONE 10 mg Tab, Oral, As Directed Allergies codeine (Sweating) Bactrim (Unable to void) Pollen (Watery eye, Eye swelling) sulfamethoxazole (Unknown, Unable to urinate) Social History Alcohol Never., 10/13/2024 Substance Abuse Never., 10/13/2024 Tobacco Former smoker, quit more than 30 days ago, quit 2017 Tobacco Use:., 10/13/2024 Family History Acute myocardial [...] Recorded influenza virus vaccine, inactivated 03/14/2017 [address]ed [address] [facility] Comment on above: Result Comment: Elec tronically Signed By: Carlos Sethi.br\Date and Time Signed: 11/08/24 11:40 EDT MAGNESIUMon 11-08-2024 Magnesium [Mass/Vol] 2.1 mg/dL Normal 1.8-2.6 [facility] Comment on above: Performed By: #### M G #### [facility] ([address] [address] VIR POCT EKGOrdered By: Victoria Collado on 11-08-2024 [facility] PROTIME AND INRon 11-08-2024 INR 1.1 Normal 0.9-1.2 [facility] Comment on above: Performed By: #### P INR #### [facility] ([address] [address] VIR PT Coag (PPP) [Time] 12.4 s Normal 9.8-13.2 [facility] Comment on above: Performed By: #### P INR #### [address] [address] VIR THYROID PROFILE INCLUDES TSH FT4on 11-08-2024 Free T4 [Mass/Vol] 0.88 ng/dL Normal 0.61-1.60 [facility] Comment on above: Performed By: #### T HYR #### [facility] ([address] [address] VIR TSH 0.66 uIU/mL Normal 0.49-4.67 [facility] Comment on above: Performed By: #### T HYR #### [facility] ([address] [address] VIR TROP I, HIGH SENSITIVITY 1 H OURon 11-08-2024 TROPONIN I, HIGH SENSITIVITY 4 ng/L Normal <21 [facility] Comment on above: Performed By: #### P TT #### [facility] ([facility]) [address] [place] [address] [place] [address] VIR TROPONIN I, HIGH SENSITIVITY 0 HOURon 11-08-2024 TROPONIN I, HIGH SENSITIVITY 4 ng/L Normal <21 [facility] Comment on above: Performed By: #### T NIHS0 #### [facility] ([facility]) [address] [place] [address] [place] [address] VIR XR CHEST 1 VWon 11-08-2024 XR CHEST 1 VW XR CHEST 1 VW XR CHEST 1 VW: 11/08/2024 4:59 PM [...] Moise Fatima MD on 11/08/2024 5:03 PM Normal [facility]Handelabra[facility]amesASA[facility] -------- AJTIN KOCH ([id number]) 1960 M Date Time Provider Department 11/07/24 KVNG PEREZ During your visit today, we recorded the following information about you: Naz Hooks MA 11/07/2024 3:21 PM Signed [place] paperwork completed for family member has been completed and placed in folder to be signed. LUDA Landry Dorothy, MA 11/08/2024 11:25 AM Signed [facility] paperwork signed and original left at front desk worker for Eloy to strip picker on Wednesday. Original placed in scanning. Mamie Zepeda MA Allergies As of Date: 11/07/2024 Noted Allergy Reaction SULFAMETHOXAZOLE 10/25/2024 14 - Other: See Comments 16 - Unknown SULFAMETHOXAZOLE-TRIMETH OPRIM 12/17/2016 14 - Other: See Comments CODEINE 10/25/2024 14 - Other: See Comments Date Reviewed: 2024 Reviewed by: Jesusita Pabon RD - Fully Assessed Reason for Visit: [facility] Paperwork [2920] Prescriptions as of 11/08/2024 - fluticasone propionate (FLONASE NASAL) Use in [...] by mouth. Problem List As Of Date 11/07/2024 Noted Resolved CALCIF TENDINITIS SHLDER [M75.30] 03/25/2006 ROTATOR CUFF SYND NOS [M71.9, M67.919] 03/25/2006 ULNAR NERVE LESION [G56.20] 03/25/2006 CARPAL TUNNEL SYNDROME [G56.00] 03/25/2006 Encounter Status:Closed by MAMIE ZEPEDA on 11/08/24 [facility] Telephone (HEMASA) -------- AUGUSTJATIN ([id number]) 1960 M Date Time Provider Department 11/07/24 MANDA MARIE During your visit today, we recorded the following information about you: Manda Marie RN 11/07/2024 4:28 PM Signed Pt was in ER at [facility] twice over the weekend. First pt diagnosed with vertigo and sent home on Meclizine. Pt became bradycardic and was then admitted to [facility] with bradycardia and pneumonia. Pt discharged home on Levaquin, taper prednisone and continues meclizine as needed. He is on a holter monitor and sees [facility] cardiology tomorrow. Pt scheduled for AV/RYAN WednesdayNovember 10. just wanted providers updated. Reyna: please obtain records AV/RYAN: PRITI Burgos Jennifer Janeth 11/08/2024 9:01 AM Signed Records scanned. Allergies As of Date: 11/07/2024 Noted Allergy Reaction SULFAMETHOXAZOLE 10/25/2024 14 - Other: See Comments 16 - Unknown SULFAMETHOXAZOLE-TRIMETH OPRIM 12/17/2016 14 - Other: See Comments CODEINE 10/25/2024 14 - Other: See Comments Date Reviewed: 2024 Reviewed by: Jesusita Pabon RD - Fully Assessed Prescriptions as of 11/08/2024 - fluticasone propionate (FLONASE NASAL) Use in [...] by mouth. Problem List As Of Date 11/07/2024 Noted Resolved CALCIF TENDINITIS SHLDER [M75.30] 03/25/2006 ROTATOR CUFF SYND NOS [M71.9, M67.919] 03/25/2006 ULNAR NERVE LESION [G56.20] 03/25/2006 CARPAL TUNNEL SYNDROME [G56.00] 03/25/2006 Encounter Status:Closed by MANDA MARIE on 11/07/24 [facility] 11[facility]01[facility]20[facility]HE[facility] -------- JATIN KOCH ([id number]) 1960 M Date Time Provider Department 11/01/24 MANDA MARIE During your visit today, we recorded the following information about you: Manda Marie RN 11/01/2024 3:30 PM Addendum Pt reports pt is scheduled at [facility] for a second bronchoscopy 11/20/24 to clear an obtruction that allow him to breath out, but not inhale adequately. Pt is scheduled for Brain MRI tomorrow AV/RYAN: she is asking if they should keeps appts, as previously scheduled 11/10, or reschedule following the second bronch to alleviate the obstruction? PRITI Dempsey Adarsh, MD 11/01/2024 3:32 PM Signed Keep the appts as scheduled. Manda Pike RN 11/01/2024 3:37 PM Signed notified and agreeable to appts, as previously scheduled. Manda Marie RN Allergies As of Date: 11/01/2024 Noted Allergy Reaction SULFAMETHOXAZOLE 10/25/2024 14 - Other: See Comments 16 - Unknown SULFAMETHOXAZOLE-TRIMETH OPRIM 12/17/2016 14 - Other: See Comments CODEINE 10/25/2024 14 - Other: See Comments Date Reviewed: 10/27/2024 Reviewed by: Mamie Zepeda MA - Fully Assessed Reason for Visit: [...] TUNNEL SYNDROME [G56.00] 03/25/2006 Encounter Status:Closed by MANDA MARIE on 11/01/24 [facility] Telephone ([id number]) -------- JATIN KOCH ([id number]) 1960 M Date Time Provider Department 11/01/24 ROBERT NOLASCO [id number] During your visit today, we recorded the following information about you: Allergies As of Date: 11/01/2024 Noted Allergy Reaction SULFAMETHOXAZOLE 10/25/2024 14 - Other: See Comments 16 - Unknown SULFAMETHOXAZOLE-TRIMETH OPRIM 12/17/2016 14 - Other: See Comments CODEINE 10/25/2024 14 - Other: See Comments Date Reviewed: 10/27/2024 Reviewed by: Mamie Zepeda MA - Fully Assessed Reason for Visit: [...] Of Date 11/01/2024 Noted Resolved CALCIF TENDINITIS TERRANCELDER [M75.30] 03/25/2006 ROTATOR CUFF SYND NOS [M71.9, M67.919] 03/25/2006 ULNAR NERVE LESION [G56.20] 03/25/2006 CARPAL TUNNEL SYNDROME [G56.00] 03/25/2006 Encounter Status:Closed by ROBERT CANELA on 11/01/[address] [facility] CNOVSPon 10-27-2024 CNOVSP Visit (SP) Office (HEMASA) -------- JATIN KOCH ([id number]) 1960 M Date Time Provider Department 10/27/24 9:00 AM KVNG PEREZ During your visit today, we recorded the following information about you: Temperature Pulse Respiration Blood pressure 97.7 degrees 95/minute 16/minute 100/64 Weight Height 86.7 kg 1.695 m Mamie Zepeda MA 10/27/2024 9:56 AM Signed Poatient has an irritating cough but has not coughed up blood since Wednesday, Low grade started Wednesday 102.2 chills on Wednesday (he does not take temp). He has been taking Tylenol to help minimize temps. LUDA Nicole Adarsh, MD 10/27/2024 9:56 AM Signed PATIENT NAME: Jatin Koch II CLINIC NO.: [id number] ATTENDING PHYSICIAN: Kvng Perez MD DATE OF SERVICE: October 27, [address] Chip Carbajal [address] [place] [id number] thank you for referring Jatin Koch II for an opinion regarding Lung cancer. CHIEF COMPLAINT: Lung cancer HPI: Jatin Koch II is a 63 year old year old male with PMH of HTN referred to us for lung cancer. CT chest : PET scan: C/o cough and lost 30lbs. Quit smoking in 2017. Smoked 1 pk/day for 40yrs. 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 C/o hemoptysis. C/o [...] vitals taken for this visit. No data fou (more content not included)... Normal [facility] Bekah 10-27-2024 [facility] Telephone (PULN) -------- AUGUSTJATIN Tubbs ([id number]) 1960 M Date Time Provider Department 10/27/24 JANELL AN During your visit today, we recorded the following information about you: Janell An 10/27/2024 10:21 AM Signed Referring Physician: Dr. Kvng Perez Address: [facility] Phone #: [phone] Fax #: [phone] Reason for referral: Malignant neoplasm of lower lobe of right lung Is there CareEverywhere Records: Yes Is there Imaging available: Yes - Recent CT: Yes - Date of CT: 10/18/2024 Allergies As of Date: 10/27/2024 Noted Allergy Reaction SULFAMETHOXAZOLE 10/25/2024 14 - Other: See Comments 16 - Unknown SULFAMETHOXAZOLE-TRIMETH OPRIM 12/17/2016 14 - Other: See Comments CODEINE 10/25/2024 14 - Other: See Comments Date Reviewed: 10/27/2024 Reviewed by: Mamie Zepeda MA - Fully Assessed Reason for Visit: Bronchoscopy Referral [Other] Prescriptions as of 11/28/2024 - prochlorperazine (COMPAZINE) 10 mg tablet Take 1 tablet by mouth every 6 hours as needed. - ondansetron (ZOFRAN) 8 mg tablet Take 1 tablet by mouth every 8 hours as needed for nausea/vomiting. - HERBAL DRUGS MISC 1 capsule once daily. [place]a/Soursop - OTC PRODUCT THC 5mg TID - appetite, pain, energy - loratadine 10 mg dissolvable tablet Take 10 mg by mouth once daily. - albuterol HFA (PROVENTIL HFA, VENTOLIN HFA) 90 mcg/actuation inhaler Inhale 2 puffs as instructed every 4 hours as needed for wheezing/shortness of breath. - dextromethorphan-guaiFEN esin (MUCINEX DM) 30-600 mg per tablet Take 2 tablets by mouth two times a day. - doxycycline hyclate (VIBRAMYCIN) 100 mg capsule Take 1 capsule by mouth two times a day for 7 days. - meclizine (ANTIVERT) 25 mg tab Take 25 mg by mouth three times a day as needed. - fluticasone propionate (FLONASE NASAL) Use in the nose once daily. - Acetaminophen 500 mg cap Take 1,000 mg by mouth four times a day as needed for pain. - MEN'S MULTI-VITAMIN ORAL Take by mouth once daily. - Benzonatate 200 mg capsule Take 200 mg by mouth three times a day as needed for cough. - metoprolol succinate ER (TOPROL XL) 25 mg 24 hr tablet Take 25 mg by mouth. Problem List As Of Date 10/27/2024 Noted Resolved CALCIF TENDINITIS SHLDER [M75.30] 03/25/2006 ROTATOR CUFF SYND NOS [M71.9, M67.919] 03/25/2006 ULNAR NERVE LESION [G56.20] 03/25/2006 CARPAL TUNNEL SYNDROME [G56.00] 03/25/2006 Encounter Status:Closed by JANELL AN on 11/28/24 Normal [facility] PET w/ CT Scan Skull Base to Midthighon 10-19-2024 NM PET w/ CT Scan Skull Base to Midthigh Exam Date/Time: 10/18/2024 16:30 EDT Reason for [...] a dedicated PET CT unit. Using the telecommunications support\X2019\s standard software, data were reconstructed using filtered [...] Andino MD Transcribed by: DALLAS Technologist: SIGRID [facility] Pathology Request for Lab Co rpon 10-16-2024 Pathology Request for Lab Kaycee Normal [facility] Comment on above: Order Comment: BRONC H BX Result Comment: See report. Scanned copy available in EMR. PERFORMED BY: [place] [address] PATHOLOGIST RODENT CONTROL WORKER ANA LILIA MCLEAN M.D. Performed By: #### P ATH TO [facility] #### [address] Order Comment: CYTOL OGY- BRONCH WASHING Family Medicine Office/Clini c Noteon 10-13-2024 Family Medicine Office/Clinic Note Family Medicine Office/Clinic Note HPI Staff Navarrete is a 63 year old female presenting with Establish Care: History: Any previous diagnosis: HTN, arthritis History of seeing any specialist: Clinical Practitioner ( [place]) Urology When was your last doctors visit: June or July Last provider: Alina Cardenas Any recent labs: June or July Health Maintenance UTD: Colonoscopy: 2017- or 2018 PSA: not sure Acute: Current issues/complaints: No refills Had CT done [facility] last Wednesday- found something Biopsy scheduled for [...] was previously seen by Alina Ragland in [place]. pt was recently at [facility] ER. Had CT scan of lungs. 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 Normal [facility] Comment on above: Result Comment: Elec tronically Signed By: Carlos Sethi\.lesa\Date and Time Signed: 10/13/24 12:40 EDT URINALYSIS MICROSCOPIC WITH REFLEX CULTUREon 10-07-2024 BACTERIA URINE TRACE Abnormal NONE SEEN #/HPF [facility] BILIRUBIN URINE Negative NEGATIVE [facility] BLOOD URINE TRACE-I NEGATIVE [facility] CAST SEEN? NONE SEEN NONE SEEN #/LPF [facility] Clarity (U) CLEAR CLEAR [facility] Color (U) LT. YELLOW YELLOW [facility] CRYSTALS SEEN? None Seen None Seen #/HPF [facility] GLUCOSE URINE UA Negative NEGATIVE mg/dL [facility] Interpretation and review of laboratory results Abnormal [facility] Ketones Ql (U) TRACE Abnormal NEGATIVE mg/dL [facility] Leukocyte esterase Test strip Ql (U) Negative NEGATIVE [facility] MUCUS URINE NONE SEEN NONE SEEN [facility] NITRITE URINE Negative NEGATIVE [facility] pH (U) 6.0 [pH] 5.0 - 9.0 [facility] PROTEIN URINE Negative NEG/TRACE mg/dL [facility] SPECIFIC GRAVITY URINE 1.010 1.005 - 1.025 [facility] SQUAMOUS EPITHELIAL CELL URINE RARE NONE/RARE #/LPF [facility] TBH RBC 0-2 [facility] WBC 0-2 Abnormal NONE SEEN #/HPF [facility] URINE CULTURE INDICATED NO [facility] UROBILINOGEN URINE 0.2 EU/dL 0.2 - 1.0 EU/dL [facility] COVID Cepheidon 09-08-2024 SARS-CoV-2 (COVID-19) RNA SHIRA+probe Ql (Unsp spec) [facility] an d Antimicrobial susceptibilityon 09-08-2024 SARS-CoV-2 (COVID-19) RNA SHIRA+probe Ql (Unsp spec) Negative [facility] No Panel Informationon 09-08 POC Influenza A (PCR) Positive [facility] POC Influenza B (PCR) Negative [facility] X-ray reportOrdered By: Neri Lewis on 08-31-2024 Study report [facility] [place] [address] XRay Report Signed Patient: Jatin Koch II MR#: [id number] : 1960 Acct:[id number] Age/Sex: 63 / M ADM Date: 5 Loc: XDUC Room: Type: [facility] CLI Attending Dr: Tonja De Oliveira HEALTH NURSE Copies to: Tonja De Oliveira APRN~ Ordering Provider: Tonja De Oliveira APRN Date of Service: 08/31/24 XR/XR chest 2V*: COUGH Chest 2 views CLINICAL HISTORY: Dry cough for 2 months. COMPARISON: None FINDINGS: Heart normal size. Lungs are clear. No free air. XR/XR chest 2V* IMPRESSION: NO ACUTE CARDIOPULMONARY ABNORMALITY. Impression dictated by: Neftali Lewis Jr., D.O.08/31/2024 10:22 AM Dictation Location: [place] [address] Transcribed By: [facility] 08/31/24 1022 Dictated By: Neftali Lewis Jr, DO 08/31/24 1022 Signed By: 08/31/24 1022 [facility] XR chest 2V*on 08-31-2024 XR chest 2V* [facility] Main [place] [id number] XRay Report Signed Patient: Jatin Koch II MR#: [id number] : 1960 Acct:[id number] Age/Sex: 63 / M ADM Date: 08/31/24 Loc: XDUC Room: Type: [facility] CLI Attending Dr: Tonja De Oliveira HEALTH NURSE Copies to: Tonja De Oliveira APRN Ordering Provider: Tonja De Oliveira APRN Date of Service: 08/31/24 XR/XR chest 2V*: COUGH Chest 2 views CLINICAL HISTORY: Dry cough for 2 months. COMPARISON: None FINDINGS: Heart normal size. Lungs are clear. No free air. XR/XR chest 2V* IMPRESSION: NO ACUTE CARDIOPULMONARY ABNORMALITY. Impression dictated by: Neftali Lewis Jr., D.O.08/31/2024 10:22 AM Dictation Location: [place] [address] Transcribed By: [facility] 08/31/24 1022 Dictated By: Neftali Lewis Jr, DO 08/31/24 1022 Signed By: 08/31/24 1022 Normal [facility] CBC AUTO DIFFon 11-10-2022 BASO # 0.1 103/ul Normal 0.0-0.1 [facility] Comment on above: Performed By: #### C BC #### [facility] [address] [place] [address] Dr. Jenny Stone Basophils/100 WBC (Bld) 0.6 % Normal 0.2-2.0 [facility] Comment on above: Performed By: #### C BC #### [facility] [address] [place] [address] Dr. Jenny Stone EO # 0.2 103/ul Normal 0.0-0.7 [facility] Comment on above: Performed By: #### C BC #### [facility] [address] [place] [address] Dr. Jenny Stone Eosinophils/100 WBC (Bld) 2.4 % Normal 0.9-7.0 [facility] Comment on above: Performed By: #### C BC #### [facility] [address] [place] [address] Dr. Jenny Stone Erythrocyte distribution width (RBC) [Ratio] 13.0 % Normal 11.0-15.0 [facility] Comment on above: Performed By: #### C BC #### [facility] [address] [place] [address] Dr. Jenny Stone Hematocrit (Bld) [Volume fraction] 46.1 % Normal 42.0-54.0 [facility] Comment on above: Performed By: #### C BC #### [facility] [address] [place] [address] Dr. Jenny Stone Hemoglobin (Bld) [Mass/Vol] 15.2 g/dL Normal 14.0-18.0 [facility] Comment on above: Performed By: #### C BC #### [facility] [address] [place] [address] Dr. Jenny Stone IG # 0.04 10e3/ul Critically high 0.00-0.03 [facility] Comment on above: Performed By: #### C BC #### [facility] [address] [place] [address] Dr. Jenny Stone IG % 0.5 % Normal 0.0-0.5 [facility] Comment on above: Performed By: #### C BC #### [facility] [address] [place] [address] Dr. Jenny Stone LYMPH # 2.5 103/ul Normal 1.2-3.8 [facility] Comment on above: Performed By: #### C BC #### [facility] [address] [place] [address] Dr. Jenny Stone Lymphocytes/100 WBC (Bld) 32.4 % Normal 20.5-60.0 [facility] Comment on above: Performed By: #### C BC #### [facility] [address] [place] [address] Dr. Jenny Stone MANUAL DIFF REQ NO Normal [facility] Comment on above: Performed By: #### C BC #### [facility] [address] [place] [address] Dr. Jenny Stone MCH (RBC) [Entitic mass] 29.6 pg Normal 25.9-34.0 [facility] Comment on above: Performed By: #### C BC #### [facility] [address] [place] [address] Dr. Jenny Stone MCHC (RBC) [Mass/Vol] 33.0 g/dL Normal 29.9-35.2 [facility] Comment on above: Performed By: #### C BC #### [facility] [address] [place] [address] Dr. Jenny Stone MCV (RBC) [Entitic vol] 89.7 fL Normal 80.0-94.0 [facility] Comment on above: Performed By: #### C BC #### [facility] [address] [place] [address] Dr. Jenny Stone MONO # 0.7 103/ul Normal 0.3-0.8 [facility] Comment on above: Performed By: #### C BC #### [facility] [address] [place] [address] Dr. Jenny Stone Monocytes/100 WBC (Bld) 8.6 % Normal 1.7-12.0 [facility] Comment on above: Performed By: #### C BC #### [facility] [address] [place] [address] Dr. Jenny Stone NEUT # 4.3 103/ul Normal 1.4-6.5 [facility] Comment on above: Performed By: #### C BC #### [facility] [address] [place] [address] Dr. Jenny Stone Neutrophils/100 WBC (Bld) 55.5 % Normal 43.0-75.0 [facility] Comment on above: Performed By: #### C BC #### [facility] [address] [place] [address] Dr. Jenny Stone Platelet mean volume (Bld) [Entitic vol] 9.9 fL Normal 9.5-13.5 [facility] Comment on above: Performed By: #### C BC #### [facility] [address] [place] [address] Dr. Jenny Stone PLT 177 103/ul Normal 150-450 [facility] Comment on above: Performed By: #### C BC #### [facility] [address] [place] [address] Dr. Jenny Stone RBC 5.14 106/ul Normal 4.70-6.10 [facility] Comment on above: Performed By: #### C BC #### [facility] [address] [place] [address] Dr. Jenny Stone WBC 7.8 103/ul Normal 4.0-11.0 [facility] Comment on above: Performed By: #### C BC #### [facility] [address] [place] [address] [address] Jenny Stone LIPID PROFILEon 11-10-2022 CHOL-HDL RATIO NORM SEE BELOW Normal [facility] Comment on above: Result Comment: 3.3 - 4.4 LOW RISK 4.4 - 7.1 AVERAGE RISK 7.1 - 11.0 MODERATE RISK >11.0 HIGH RISK Performed By: #### C MP, LIPID #### [facility] [address] [place] [address] [address] Jenny Stone Cholesterol [Mass/Vol] 203 mg/dL Critically high <=200 [facility] Comment on above: Performed By: #### C MP, LIPID #### [facility] [address] [place] [address] [address] Jenny Stone Cholesterol in HDL [Mass/Vol] 40 mg/dL Normal 40-60 [facility] Comment on above: Performed By: #### C MP, LIPID #### [facility] [address] [place] [address] [address] Jenny Stone Cholesterol in LDL [Mass/Vol] 142.2 mg/dL Normal [facility] Comment on above: Performed By: #### C MP, LIPID #### [facility] [address] [address] [address] Jenny Stone Cholesterol.total/Ch olesterol in HDL [Mass ratio] 5.1 {ratio} [facility] Comment on above: Performed By: #### C MP, LIPID #### [facility] [address] [address] [address] Jenny Stone HDL NORMAL > or = 60 mg/dl - LO W CARDIOVASCULAR RISK <40 mg/dl - HIGH CARDIOVASCULAR RISK [facility] Comment on above: Performed By: #### C MP, LIPID #### [facility] [address] [address] [address] Jenny Stone LDL CALC NORMAL SEE BELOW Normal [facility] Comment on above: Result Comment: <100 mg/dl OPTIMAL 100 - 129 mg/dl NEAR OR ABOVE OPTIMAL 130 - 159 mg/dl BORDERLINE HIGH 160 - 189 mg/dl HIGH >190 mg/dl VERY HIGH Performed By: #### C MP, LIPID #### [facility] [address] [place] [address] Dr. Jenny Stone Triglyceride [Mass/Vol] 104 mg/dL Normal <=150 [facility] Comment on above: Performed By: #### C MP, LIPID #### [facility] [address] [place] [address] Dr. Jenny Stone VLDL CALC 20.8 mg/dL [facility] Comment on above: Performed By: #### C MP, LIPID #### [facility] [address] [place] [address] Dr. Jenny Stone PROF 14(COMP METB)on 023 Albumin [Mass/Vol] 3.9 g/dL Normal 3.4-5.0 [facility] Comment on above: Performed By: #### C MP, LIPID #### [facility] [address] [place] [address] Dr. Jenny Stone Albumin/Globulin [Mass ratio] 1.1 {ratio} [facility] Comment on above: Performed By: #### C MP, LIPID #### [facility] [address] [place] [address] Dr. Jenny Stone ALP [Catalytic activity/Vol] 70 U/L Normal 46-116 [facility] Comment on above: Performed By: #### C MP, LIPID #### [facility] [address] [place] [address] Dr. Jenny Stone ALT [Catalytic activity/Vol] 39 U/L Normal 16-63 [facility] Comment on above: Performed By: #### C MP, LIPID #### [facility] [address] [place] [address] Dr. Jenny Stone Anion gap [Moles/Vol] 14.2 mmol/L [facility] Comment on above: Performed By: #### C MP, LIPID #### [facility] [address] [place] [address] Dr. Jenny Stone AST [Catalytic activity/Vol] 23 U/L Normal 15-37 [facility] Comment on above: Performed By: #### C MP, LIPID #### [facility] [address] [address] [address] Jenny Stone Bilirubin [Mass/Vol] 0.3 mg/dL Normal 0.2-1.0 [facility] Comment on above: Performed By: #### C MP, LIPID #### [facility] [address] [address] [address] Jenny Stone Calcium [Mass/Vol] 8.5 mg/dL Normal 8.5-10.1 [facility] Comment on above: Performed By: #### C MP, LIPID #### [facility] [address] [address] [address] Jenny Stone Chloride [Moles/Vol] 102 mmol/L Normal 98-107 [facility] Comment on above: Performed By: #### C MP, LIPID #### [facility] [address] [place] [address] Dr. Jenny Stone CO2 [Moles/Vol] 30.1 mmol/L Normal 21.0-32.0 [facility] Comment on above: Performed By: #### C MP, LIPID #### [facility] [address] [place] [address] Dr. Jenny Stone Creatinine [Mass/Vol] 1.00 mg/dL Normal 0.70-1.30 [facility] Comment on above: Performed By: #### C MP, LIPID #### [facility] [address] [place] [address] Dr. Jenny Stone EGFR-AF BELARUSIAN >60 Normal >=60 [facility] Comment on above: Performed By: #### C MP, LIPID #### [facility] [address] [place] [address] Dr. Jenny Stone EGFR-NON AF BELARUSIAN >60 Normal >=60 [facility] Comment on above: Performed By: #### C MP, LIPID #### [facility] [address] [place] [address] Dr. Jenny Stone Globulin (S) [Mass/Vol] 3.5 g/dL [facility] Comment on above: Performed By: #### C MP, LIPID #### [facility] [address] [address] [address] Jenny Stone Glucose [Mass/Vol] 89 mg/dL Normal 74-106 [facility] Comment on above: Performed By: #### C MP, LIPID #### [facility] [address] [address] [address] Jenny Stone Potassium [Moles/Vol] 4.3 mmol/L Normal 3.5-5.1 [facility] Comment on above: Performed By: #### C MP, LIPID #### [facility] [address] [address] [address] Jenny Stone Protein [Mass/Vol] 7.4 g/dL Normal 6.4-8.2 [facility] Comment on above: Performed By: #### C MP, LIPID #### [facility] [address] [place] [address] Dr. Jenny Stone Sodium [Moles/Vol] 142 mmol/L Normal 136-145 [facility] Comment on above: Performed By: #### C MP, LIPID #### [facility] [address] [address] [address] Jenny Stone Urea nitrogen [Mass/Vol] 17.0 mg/dL Normal 7.0-18.0 [facility] Comment on above: Performed By: #### C MP, LIPID #### [facility] [address] [place] [address] Dr. Jenny Stone Urea nitrogen/Creatinine [Mass ratio] 17.0 mg/mg [facility] Comment on above: Performed By: #### C MP, LIPID #### [facility] [address] [place] [address] Dr. Jenny Stone US KIDNEYSon 07-01-2022 US KIDNEYS US KIDNEYS EXAM DATE: 06/30/2022 5:55 AM MST COMPARISON: Ultrasound kidney 05/30/2021 INDICATION: Acquired renal cystic disease. TECHNIQUE: Real-time ultrasound scanning of the kidneys and bladder was performed by the machine setter and repairer. Tie Mill Operator static images are submitted for review. FINDINGS: [...] by: WEI ASH Date: 2022-06-30 23:29 [facility] XR KUB 1 VIEWon 07-01-2022 XR KUB [...] by: FREIDA PEREZ Date: 2022-07-01 06:59 [facility] Vital Signs Date Time Vital Sign Value Performing Clinician David richey 12-07-2024 14:31-0400 Body height 172.7 cm Bishop Milan APRN-EMPLOYMENT COACH Work Phone: [employer] 12-07-2024 14:31-0400 Body mass index (BMI) [Ratio] 28.59 kg/m2 Bishop Bjorn HEALTH NURSE-EMPLOYMENT COACH Work Phone: [employer] 12-07-2024 14:31-0400 Body weight 85.28 kg 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 Work Phone: [employer] 12-07-2024 14:31-0400 Diastolic blood pressure 62 mm[Hg] Bishop Torret HEALTH NURSE-EMPLOYMENT COACH Work Phone: [employer] 12-07-2024 14:31-0400 Heart rate 90 /min 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 Work Phone: [employer] 12-07-2024 14:31-0400 SaO2% (BldA) [Mass fraction] 97 % 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 Work Phone: [employer] 12-07-2024 14:31-0400 Systolic blood pressure 110 mm[Hg] Bishop Torret HEALTH NURSE-EMPLOYMENT COACH Work Phone: [employer] 11-22-2024 12:31-0400 Body height 172.7 cm 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 Work Phone: [employer] 11-22-2024 12:31-0400 Diastolic blood pressure 50 mm[Hg] 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 Work Phone: [employer] 11-22-2024 12:31-0400 Heart rate 92 /min 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 Work Phone: [employer] 11-22-2024 12:31-0400 SaO2% (BldA) [Mass fraction] 98 % Bishop Torret HEALTH NURSE-EMPLOYMENT COACH Work Phone: [employer] 11-22-2024 12:31-0400 Systolic blood pressure 108 mm[Hg] Bishop Bjorn HEALTH NURSE-EMPLOYMENT COACH Work Phone: [employer] 11-17-2024 14:23-0400 Body height 169.5 cm Kvng Perez MD Work Phone: [facility] 11-17-2024 14:23-0400 Body mass index (BMI) [Ratio] 30.25 kg/m2 Kvng Perez MD Work Phone: [facility] 11-17-2024 14:23-0400 Body temperature 98.01 [degF] Kvng Perez MD Work Phone: [facility] 11-17-2024 14:23-0400 Body weight 86.9 kg Kvng Perez MD Work Phone: [facility] 11-17-2024 14:23-0400 Diastolic blood pressure 67 mm[Hg] Kvng Perez MD Work Phone: [facility] 11-17-2024 14:23-0400 Heart rate 105 /min Kvng Perez MD Work Phone: [facility] 11-17-2024 14:23-0400 Respiratory rate 16 /min Kvng Perez MD Work Phone: [facility] 11-17-2024 14:23-0400 SaO2% (BldA) [Mass fraction] 99 % Kvng Perez MD Work Phone: [facility] 11-17-2024 14:23-0400 Systolic blood pressure 100 mm[Hg] Kvng Perez MD Work Phone: [facility] 11-17-2024 12:59-0400 Body mass index (BMI) [Ratio] 30.25 kg/m2 Ezra Lizama MD Work Phone: [facility] 11-17-2024 12:59-0400 Body weight 86.9 kg Ezra Lizama MD Work Phone: [facility] 11-15-2024 10:37-0400 Body mass index (BMI) [Ratio] 30.53 kg/m2 Regina Robertson MD Work Phone: [facility] 11-15-2024 10:37-0400 Body temperature 97.2 [degF] Regina Robertson MD Work Phone: [facility] 11-15-2024 10:37-0400 Body weight 87.7 kg Regina Robertson MD Work Phone: [facility] 11-15-2024 10:37-0400 Diastolic blood pressure 66 mm[Hg] Regina Robertson MD Work Phone: [facility] 11-15-2024 10:37-0400 Heart rate 85 /min Regina Robertson MD Work Phone: [facility] 11-15-2024 10:37-0400 Respiratory rate 20 /min Regina Robertson MD Work Phone: [facility] 11-15-2024 10:37-0400 SaO2% (BldA) [Mass fraction] 98 % Regina Robertson MD Work Phone: [facility] 11-15-2024 10:37-0400 Systolic blood pressure 111 mm[Hg] Regina Robertson MD Work Phone: [facility] 11-08-2024 14:40-0400 Body height 172.7 cm Jennifer Best MD Work Phone: [facility] 11-08-2024 14:40-0400 Body mass index (BMI) [Ratio] 31.78 kg/m2 Jennifer Best MD Work Phone: [facility] 11-08-2024 14:40-0400 Body weight 94.8 kg Jennifer Best MD Work Phone: [facility] 11-08-2024 14:40-0400 Diastolic blood pressure 72 mm[Hg] Jennifer Best MD Work Phone: [facility] 11-08-2024 14:40-0400 Heart rate 105 /min Jennifer Best MD Work Phone: [facility] 11-08-2024 14:40-0400 SaO2% (BldA) [Mass fraction] 95 % Jennifer Best MD Work Phone: [facility] 11-08-2024 14:40-0400 Systolic blood pressure 104 mm[Hg] Jennifer Best MD Work Phone: [facility] 10-27-2024 08:49-0400 Body height 169.5 cm Kvng Perez MD Work Phone: [facility] Comment on above: verified no shoes 10-27-2024 08:49-0400 Body mass index (BMI) [Ratio] 30.18 kg/m2 Kvng Perez MD Work Phone: [facility] 10-27-2024 08:49-0400 Body temperature 97.7 [degF] Kvng Perez MD Work Phone: [facility] 10-27-2024 08:49-0400 Body weight 86.7 kg Kvng Perez MD Work Phone: [facility] 10-27-2024 08:49-0400 Diastolic blood pressure 64 mm[Hg] Kvng Perez MD Work Phone: [facility] 10-27-2024 08:49-0400 Heart rate 95 /min Kvng Perez MD Work Phone: [facility] 10-27-2024 08:49-0400 Respiratory rate 16 /min Kvng Perez MD Work Phone: [facility] 10-27-2024 08:49-0400 SaO2% (BldA) [Mass fraction] 96 % Kvng Perez MD Work Phone: [facility] 10-27-2024 08:49-0400 Systolic blood pressure 100 mm[Hg] Kvng Perez MD Work Phone: [facility] 09-08-2024 11:32-0400 Body height 172.72 cm Alina Ragland MD Work Phone: [facility] 09-08-2024 11:32-0400 Body mass index (BMI) [Ratio] 31.5 kg/m2 Alina Ragland MD Work Phone: [facility] 09-08-2024 11:32-0400 Body temperature 97.3 [degF] Alina Ragland MD Work Phone: [facility] 09-08-2024 11:32-0400 Body weight 94 kg Alina Ragland MD Work Phone: [facility] 09-08-2024 11:32-0400 Diastolic blood pressure 64 mm[Hg] Alina Ragland MD Work Phone: [facility] 09-08-2024 11:32-0400 Heart rate 115 /min Alina Ragland MD Work Phone: [facility] 09-08-2024 11:32-0400 Respiratory rate 18 /min Alina Ragland MD Work Phone: [facility] 09-08-2024 11:32-0400 SaO2% (BldA) [Mass fraction] 96 % Alina Ragland MD Work Phone: [facility] 09-08-2024 11:32-0400 Systolic blood pressure 91 mm[Hg] Alina Ragland MD Work Phone: [facility] 08-31-2024 09:46-0400 Body height 172.72 cm Alina Ragland MD Work Phone: [facility] 08-31-2024 09:46-0400 Body mass index (BMI) [Ratio] 32.6 kg/m2 Alina Ragland MD Work Phone: [facility] 08-31-2024 09:46-0400 Body temperature 98.8 [degF] Alina Ragland MD Work Phone: [facility] 08-31-2024 09:46-0400 Body weight 97.52 kg Alina Ragland MD Work Phone: [facility] 08-31-2024 09:46-0400 Diastolic blood pressure 64 mm[Hg] Alian Ragland MD Work Phone: [facility] 08-31-2024 09:46-0400 Heart rate 62 /min Alina Ragland MD Work Phone: [facility] 08-31-2024 09:46-0400 Respiratory rate 18 /min Alina Ragland MD Work Phone: [facility] 08-31-2024 09:46-0400 SaO2% (BldA) [Mass fraction] 98 % Alina Ragland MD Work Phone: [facility] 08-31-2024 09:46-0400 Systolic blood pressure 148 mm[Hg] Alina Ragland MD Work Phone: [facility] 06-29-2023 08:51-0500 Diastolic blood pressure 84 mm[Hg] VICTORIA SANDRA [facility] 06-29-2023 08:51-0500 Mean blood pressure 107 mm[Hg] VICTORIA SANDRA [facility] 06-29-2023 08:51-0500 Systolic blood pressure 153 mm[Hg] VICTORIA SANDRA [facility] 06-29-2023 08:41-0500 Blood Pressure Location VICTORIA SANDRA [facility] 06-29-2023 08:41-0500 Diastolic blood pressure 87 mm[Hg] VICTORIA SANDRA [facility] 06-29-2023 08:41-0500 Heart rate 99 /min VICTORIA FLORES [facility] 06-29-2023 08:41-0500 Systolic blood pressure 153 mm[Hg] VICTORIA FLORES [facility] Encounters Encounter Date Encounter Type Care Provider Facility Start: 12-12-2024 End: 12-12-2024 Telephone encounter Tiffanie Hargrove RN Work Phone: Hematology/Oncology Comment on above: Care Coordination (P .T.) Start: 12-11-2024 End: 12-11-2024 Patient encounter procedure [facility] Provider [facility] Department Start: 12-08-2024 End: 12-15-2024 Patient encounter procedure Ezra Lizama MD Work Phone: Radiation Oncology Start: 12-08-2024 End: 12-15-2024 Radiation Oncology Note Ezra Lizama MD Work Phone: Radiation Oncology Comment on above: Simulation Note Treatment Planning Start: 12-08-2024 End: 12-11-2024 Telephone encounter Tiffanie Hargrove RN Work Phone: Hematology/Oncology Comment on above: Care Coordination (r esults) Care Coordination (F oundation one testing question) Start: 12-08-2024 End: 12-08-2024 Nursing evaluation of patient and report Nurse Hayes Garcia Work Phone: Radiation Oncology Comment on above: Malignant neoplasm o f lower lobe of right lung (HCC) (Primary Dx) Start: 12-08-2024 End: 12-08-2024 ambulatory CARLOS COLLINS Facility:[facility] Start: 12-07-2024 End: 12-07-2024 Postop follow up visit related to original px 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 Work Phone: [facility] Comment on above: Pacemaker (Primary D x); AV block; Squamous cell carcinoma of lung, unspecified laterality (CMS-HCC) Start: 12-07-2024 End: 12-07-2024 Clinical Support Ppc Pacer [facility] Comment on above: Pacemaker (Primary D x) Start: 12-07-2024 ambulatory [facility] Facility: [facility] Start: 12-07-2024 End: 12-07-2024 Subsequent hospital visit by physician Arrival Time Radiology Work Phone: Radiology [facility] Comment on above: Malignant neoplasm o f lower lobe of right lung (HCC) [C34.31] Start: 12-05-2024 End: 12-08-2024 Telephone encounter Tiffanie Hargrove RN Work Phone: Hematology/Oncology Comment on above: Care Coordination (C linical update) Start: 12-05-2024 End: 12-05-2024 ambulatory [facility] Facility:[facility] Start: 11-28-2024 End: 11-29-2024 Telephone encounter Ezra Lizama MD Work Phone: Radiation Oncology Comment on above: Patient Update; Futu re Appointment Start: 11-27-2024 End: 11-27-2024 Refill Tiffanie Hargrove RN Work Phone: Hematology/Oncology Comment on above: Refill Request; Care Coordination (Treatment prep) Malignant neoplasm o f lower lobe of right lung (HCC) (Primary Dx) Care Coordination (C linical update) Patient Update Start: 11-23-2024 End: 11-28-2024 Orders Only See-Kevin Robertson MD Work Phone: Pulmonary Medicine Comment on above: Pneumonia of right l ower lobe due to methicillin resistant Staphylococcus aureus (MRSA) (HCC) (Primary Dx) Patient Update; Elise ent Question Medication Request Start: 11-22-2024 End: 11-22-2024 Postop follow up visit related to original px 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] Start: 11-17-2024 End: 11-17-2024 Office outpatient visit 15 minutes Kvng Perez MD Work Phone: Hematology/Oncology Comment on above: Malignant neoplasm o f lower lobe of right lung (HCC) (Primary Dx) Start: 11-17-2024 End: 12-12-2024 Telephone encounter Josseline Stewart RN [facility] Comment on above: Planning radiation t reatments to lung Appointment Start: 11-17-2024 End: 11-17-2024 Patient encounter procedure Ezra Lizama MD Work Phone: Radiation Oncology Comment on above: Malignant neoplasm o f lower lobe of right lung (HCC) Start: 11-17-2024 End: 11-17-2024 ambulatory Richardson Cantu RN Radiation Oncology Comment on above: Patient Education Start: 11-15-2024 ambulatory ALINA RAGLAND [facility] Start: 11-15-2024 End: 11-15-2024 Chart abstracting 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 Work Phone: [facility] Start: 11-15-2024 End: 11-15-2024 ambulatory CARLOS COLLINS Facility:[facility] Start: 11-15-2024 Encounter for other preprocedural examination CARLOS COLLINS [facility] Start: 11-15-2024 End: 11-15-2024 Patient encounter procedure Regina Robertson MD Work Phone: Pulmonary Medicine Comment on above: 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); Bronchial obstruction Start: 11-15-2024 End: 11-15-2024 ambulatory CARLOS L DENNIS Facility:[facility] Start: 11-09-2024 End: 11-09-2024 ambulatory [facility] Start: 11-09-2024 End: 11-09-2024 Evaluation and management of inpatient IDANIA U BARNEY [facility] Start: 11-08-2024 End: 11-08-2024 Emergency department patient visit [facility] Start: 11-08-2024 End: 11-08-2024 Office outpatient new 60 minutes Jennifer Best MD Work Phone: [facility] Comment on above: Syncope, unspecified syncope type (Primary Dx) Start: 11-08-2024 End: 11-08-2024 ambulatory CÉSARLAI BEST [facility] Start: 11-08-2024 End: 11-08-2024 ambulatory Carlos L Dennis Facility:[facility] Start: 11-07-2024 End: 11-08-2024 Telephone encounter [facility] Comment on above: [place] Paperwork Start: 11-07-2024 End: 12-12-2024 ambulatory Carlos L Dennis Facility:CD:[id number] Start: 2024 ambulatory Carlos L Dennis Facility: [facility] Start: 10-30-2024 End: 10-30-2024 ambulatory CARLOS L DENNIS Facility:[facility] Start: 10-27-2024 End: 11-28-2024 Telephone encounter Janell An Pulmonary Medicine Comment on above: Bronchoscopy Referra l Start: 10-27-2024 End: 10-27-2024 Office outpatient new 60 minutes Kvng Perez MD Work Phone: Hematology/Oncology Comment on above: Malignant neoplasm o f lower lobe of right lung (HCC) (Primary Dx) Start: 10-27-2024 End: 10-27-2024 ambulatory CARLOS L DENNIS Facility:[facility] Start: 10-25-2024 End: 10-25-2024 Chart abstracting Kvng Perez MD Work Phone: Hematology/Oncology Start: 10-18-2024 ambulatory CHIP CARBAJAL Facility :[facility] Start: 10-16-2024 End: 10-16-2024 ambulatory Alina Ragland MD Work Phone: [facility] Work Phone: Start: 10-16-2024 End: 10-16-2024 Departed Referred Alina Ragland MD Work Phone: [facility] Start: 10-13-2024 End: 10-13-2024 ambulatory Carlos L Dennis Facility:[facility] Start: 10-10-2024 ambulatory Carlos Dennis Facility:[facility] Start: 10-07-2024 End: 10-07-2024 Clinisync Result Encounter Gilberto SESAY Work Phone: [facility] External [facility] Unsolicited Start: 10-07-2024 End: 10-07-2024 Clinisync Result Encounter Gilberto SESAY Work Phone: [facility] External Department Unsolicited Start: 10-06-2024 End: 10-08-2024 Clinisync Result Encounter Gilberto SESAY Work Phone: [facility] External Department Unsolicited Start: 10-06-2024 End: 10-08-2024 Clinisync Result Encounter Gilberto SESAY Work Phone: [facility] External Department Unsolicited Start: 09-08-2024 End: 09-08-2024 ambulatory Alina Ragland MD Work Phone: [facility] Work Phone: Start: 09-08-2024 End: 09-08-2024 Patient encounter procedure Alina Ragland MD Work Phone: [facility] Work Phone: Start: 08-31-2024 End: 08-31-2024 ambulatory Alina Ragland MD Work Phone: [facility] Work Phone: Start: 08-31-2024 End: 08-31-2024 Patient encounter procedure Alina Ragland MD Work Phone: [facility] Work Phone: Start: 07-13-2024 Non-patient / Non-visit Cinthya Ragland MD Work Phone: [facility] Work Phone: Start: 06-29-2023 End: 06-29-2023 Patient encounter procedure VICTORIA FLORES [facility] Start: 11-11-2022 Encounter for genera l adult medical examination without abnormal findings DR ALINA RAG[facility] Start: 11-10-2022 End: 11-11-[address] ALINA RAGLAND Facility:[facility] Start: 11-10-2022 End: 11-11-2022 Encounter for general adult medical examination without abnormal findings DR ALINA RAGLAND Facility:[facility] Start: 06-30-2022 End: 07-01-2022 ambulatory VICTORIA FLORES Facility:[facility] Start: 06-17-2022 End: 06-18-2022 ambulatory VICTORIA FLORES Facility:[facility] Procedures Date Procedure Procedure Detail Performing Clinician Start: 12-07-2024 Ct head/brain w/o co ntrast material Kvng Perez MD Work Phone: Start: 11-22-2024 Follow-up visit Follow-up BISHOP MILAN Start: 11-20-2024 Prgrmg dev eval implantable subq lead dfb system Regina Robertson MD Work Phone: Start: 11-09-2024 Adult depression scr eening assessment 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 Work Phone: Start: 11-08-2024 Ecg routine ecg w/le ast 12 lds w/i&r Jennifer Best MD Work Phone: Start: 10-07-2024 URINALYSIS MICROSCOP IC WITH REFLEX CULTURE Gilberto SESAY Work Phone: Start: 10-06-2024 BLOOD CULTURE 2 Gilberto SESAY Work Phone: Start: 10-06-2024 BLOOD CULTURE 1 Gilberto SESAY Work Phone: Start: 08-31-2024 Plain chest X-ray Talib Ragland MD Work Phone: Start: 06-17-[address] CINTHYA RAGLAND Comment on above: Performed By: #### P SAD #### [facility] [address] [place] [address] Dr. Jenny Stone Start: 09-30-2020 Lipid 1996 panel - S karishma or Plasma Kvng Perez MD Work Phone: Start: 05-17-2019 Transurethral prostatectomy VICTORIA FLORES Start: 12-08-2018 Cystoscopy VICTORIA BLACKBURN Colonoscopy VICTORIA FLORES Tonsillectomy VICTORIA FLORES Plan of Treatment Date Care Activity Detail Author Start: 2036 RSV Vaccine (1 - 1-dose 75+ series) RSV Vaccine (1 - 1-dose 75+ series) [facility] Start: 11-10-2027 Diabetes Screening Diabetes Screening [facility] Start: 12-07-2025 Adult BMI Screening Adult BMI Screening [facility] Start: 12-07-2025 Tobacco Screening Tobacco Screening [facility] Start: 11-22-2025 Tobacco Screening Tobacco Screening [facility] Start: 11-09-2025 Adult BMI Screening Adult BMI Screening [facility] Start: 11-09-2025 Depression Screening Depression Screening [facility] Start: 11-09-2025 Tobacco Screening Tobacco Screening [facility] Start: 11-08-2025 Adult BMI Screening Adult BMI Screening [facility] Start: 11-08-2025 Tobacco Screening Tobacco Screening [facility] Start: 09-30-2025 Lipid panel Lipid Screening [facility] Start: 05-30-2025 End: 05-30-2025 Clinical Support [facility] Start: 05-27-2025 Screening for malignant neoplasm of colon [facility] Start: 02-12-2025 Influenza vaccination [facility] Start: 01-12-2025 ambulatory Ambulatory Facility:[facility] Start: 01-09-2025 End: 01-09-2025 ambulatory 01/09/2025 2:30 PM EDT Visit (SP) Office Hematology/Oncology [address] [place] [address] [place] [address] Madison Nolasco, CHRISTELLET massage[facility] Hematology/Oncol og Comment on above: [facility] Start: 01-09-2025 ambulatory Ambulatory Facility:[facility] Start: 01-02-2025 End: 01-02-2025 ambulatory 01/02/2025 2:30 PM EDT Visit (SP) Office Hematology/Oncology [address] [place] [address] [place] [address] Madison Nolasco, TERRANCE massage-pt [facility] Hematology/Oncol ogy Comment on above: [facility] Start: 12-26-2024 End: 12-26-2024 ambulatory 12/26/2024 2:30 PM EDT Visit (SP) Office Hematology/Oncology [address] [place] [address] [place] [address] Madison Nolasco, CHRISTELLET massage-pt in [facility] Hematology/Oncol ogy Comment on above: [facility]pt [facility] Start: 12-18-2024 End: 12-18-2024 Patient encounter procedure Radiation Oncology Comment on above: NEW START LUNG- RYAN PT NEW START LUNG - PT WOULD LIKE MORNINGS - RYAN PT Start: 12-18-2024 End: 12-18-2024 Follow-up encounter Hematology/Oncol ogy Comment on above: lab follow up and chemotx Carbo/Taxol Start: 12-18-2024 End: 12-18-2024 Patient encounter procedure [facility] Comment on above: lab follow up and chemotx Carbo/Taxol NEW START LUNG- RYAN PT NEW START LUNG - MOR NINGS - RYAN PT, med onc at 1 Start: 12-08-2024 End: 12-08-2024 Patient encounter procedure 12/08/2024 10:30 AM EDT Office Visit Radiation Oncology [address] [place] [address] Ezra Lizama MD [address] [place] [address] [place] [address] SIM Lung, IV contrast,esoph contrast, 4DCT, consent signed Radiation Oncology Comment on above: SIM Lung, IV contrast,esoph contrast, 4D CT, consent signed Start: 12-08-2024 End: 12-08-2024 Nursing evaluation of patient and report 12/08/2024 10:00 AM EDT Nurse Visit Radiation Oncology [address] [place] [address] Radha, Nurse Radt [address] [place] [address] IV start Radiation Oncology Comment on above: IV start Start: 12-07-2024 End: 12-07-2025 Device Interrogation Device Interrogation Cardiac Services Routine Pacemaker Expected: 12/07/2024, Expires: 12/07/2025 [facility] Work Phone: Comment on above: Expected: 12/07/2024, Expires: Start: 12-07-2024 End: 12-07-2024 Clinical Support [facility] Comment on above: CT Head Start: 12-04-2024 End: 12-27-2025 CT Head WO contrast CT BRAIN WO IVCON Radiology Routine Malignant neoplasm of lower lobe of right lung (HCC) Expected: 12/04/2024 (Approximate), Expires: 12/27/2025 [facility] Work Phone: Comment on above: Expected: 12/04/2024 (Approximate), Expi res: 12/27/2025 Start: 12-01-2024 End: 03-02-2025 CBC W Auto Differential panel - Blood COMPLETE BLOOD COUNT AND DIFFERENTIAL Lab Routine Malignant neoplasm of lower lobe of right lung (HCC) Expected: 12/01/2024 (Approximate), Expires: 03/02/2025 [facility] Work Phone: Comment on above: Expected: 12/01/2024 (Approximate), Expi res: 03/02/2025 Start: 12-01-2024 End: 03-02-2025 Cobalamin (Vitamin B12) [Mass/volume] in Serum or Plasma VITAMIN B12 Lab Routine Malignant neoplasm of lower lobe of right lung (HCC) Expected: 12/01/2024 (Approximate), Expires: 03/02/2025 [facility] Comment on above: Expected: 12/01/2024 (Approximate), Expi res: 03/02/2025 Start: 12-01-2024 End: 03-02-2025 Comprehensive metabolic 2000 panel - Serum or Plasma COMPREHENSIVE METABOLIC PANEL Lab Routine Malignant neoplasm of lower lobe of right lung (HCC) Expected: 12/01/2024 (Approximate), Expires: 03/02/2025 [facility] Comment on above: Expected: 12/01/2024 (Approximate), Expi res: 03/02/2025 Start: 12-01-2024 End: 03-02-2025 Ferritin [Mass/volume] in Serum or Plasma FERRITIN Lab Routine Malignant neoplasm of lower lobe of right lung (HCC) Expected: 12/01/2024 (Approximate), Expires: 03/02/2025 [facility] Comment on above: Expected: 12/01/2024 (Approximate), Expi res: 03/02/2025 Start: 12-01-2024 End: 03-02-2025 Folate [Mass/volume] in Serum or Plasma FOLATE, SERUM Lab Routine Malignant neoplasm of lower lobe of right lung (HCC) Expected: 12/01/2024 (Approximate), Expires: 03/02/2025 [facility] Comment on above: Expected: 12/01/2024 (Approximate), Expi res: 03/02/2025 Start: 12-01-2024 End: 03-02-2025 [facility] Lab Routine Malignant neoplasm of lower lobe of right lung (HCC) Expected: 12/01/2024, Expires: 03/02/2025 [facility] Comment on above: Expected: 12/01/2024, Expires: Start: 12-01-2024 End: 03-02-2025 Iron and Iron binding capacity panel - Serum or Plasma IRON AND TIBC Lab Routine Malignant neoplasm of lower lobe of right lung (HCC) Expected: 12/01/2024 (Approximate), Expires: 03/02/2025 [facility] Comment on above: Expected: 12/01/2024 (Approximate), Expi res: 03/02/2025 Start: 11-30-2024 End: 11-30-2024 Follow-up encounter 11/30/2024 3:30 PM EDT [facility] Nutrition Therapy [address] [place] [address] Jesusita Pabon, JAMIL [address] [place] [address] Follow up lung/ severe weight loss Nutrition Therapy Comment on above: Follow up lung/ severe weight loss Start: 11-30-2024 End: 11-30-2024 Patient encounter procedure 11/30/2024 9:00 AM EDT Office Visit Radiation Oncology [address] [place] [address] [place] [address] Ezra Lizama MD [address] [place] [address] [place] [address] SIM Lung, IV contrast,esoph contrast, 4DCT, consent signed Radiation Oncology Comment on above: SIM Lung, IV contrast,esoph contrast, 4D CT, consent signed Start: 11-30-2024 End: 11-30-2024 Nursing evaluation of patient and report 11/30/2024 8:45 AM EDT Nurse Visit Radiation Oncology [address] [place] [address] [place] [address] Radha, Nurse Radt [address] [place] [address] [place] [address] IV Nurse visit Radiation Oncology Comment on above: IV Nurse visit Start: 11-27-2024 End: 11-27-2024 Nursing evaluation of patient and report 11/27/2024 9:00 AM EDT Nurse Visit Hematology/Oncology [address] [place] [address] Tiffanie Hargrove, RN [address] [place] [address] weekly carbo taxol Hematology/Oncol ogy Comment on above: weekly carbo taxol Start: 11-23-2024 End: 11-23-2024 Patient encounter procedure 11/23/2024 3:00 PM EDT Office Visit Radiation Oncology [address] [place] [address] Ezra Lizama MD [address] [place] [address] SIM Lung, IV contrast,esoph contrast, 4DCT, consent signed Radiation Oncology Comment on above: SIM Lung, IV contrast,esoph contrast, 4D CT, consent signed Start: 11-23-2024 End: 11-23-2024 Nursing evaluation of patient and report 11/23/2024 2:45 PM EDT Nurse Visit Radiation Oncology [address] [place] [address] Radha, Nurse Radt [address] [place] [address] [place] [address] IV Nurse visit Radiation Oncology Comment on above: IV Nurse visit Start: 11-22-2024 End: 11-22-2025 Device Interrogation Device Interrogation Cardiac Services Routine Pacemaker- [place] Expected: 11/22/2024, Expires: 11/22/2025 [facility] Work Phone: Comment on above: Expected: 11/22/2024, Expires: Start: 11-22-2024 End: 11-22-2024 Patient encounter procedure 11/22/2024 1:00 PM EDT Office Visit [facility] [address] [place] [phone] Bishop Milan, HEALTH NURSE-EMPLOYMENT COACH [address] [place], [place] [id number] [facility] Start: 11-20-2024 End: 11-20-2024 Admission to same day surgery center 11/20/2024 11:30 AM EDT - 11/20/2024 1:30 PM EDT Surgery Admitting [address] [address] Regina Robertson MD [address] [place] [address] BRONCHOSCOPY FLEXIBLE ADULT Admitting Comment on above: BRONCHOSCOPY FLEXIBLE ADULT Start: 11-20-2024 Subsequent hospital visit by physician 11/20/2024 11:30 AM EDT Hospital Encounter Admitting [address] [address] Regina Robertson MD [address] [place] [address] 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] Admitting Comment on above: 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] Start: 11-20-2024 End: 11-20-2024 [facility] incl fluor gdnce dx w/cell washg spx [facility] H23 Start: 11-17-2024 End: 11-17-2024 Follow-up encounter 11/17/2024 2:00 PM EDT Visit (SP) Office Hematology/Oncology [address] [place] [address] [place] [address] Kvng Perez MD [address] [place] [address] 2 week follow up Hematology/Oncol ogy Comment on above: 2 week follow up Start: 11-17-2024 End: 11-17-2024 Patient encounter procedure 11/17/2024 1:00 PM EDT Office Visit Radiation Oncology [address] [place] [address] [place] [address] Ezra Lizama MD [address] [place] [address] Consult dx Lung cancer Radiation Oncology Comment on above: Consult dx Lung cancer Start: 11-15-2024 End: 11-15-2024 ambulatory 11/15/2024 12:10 PM EDT Procedure Cardiology [address] [address] PreOp Testing Cardiology Comment on above: PreOp Testing Start: 11-15-2024 End: 11-15-2024 Patient encounter procedure 11/15/2024 11:00 AM EDT Office Visit Pulmonary Medicine [address] [address] Regina Robertson MD [address] [place] [address] New Consultation Pulmonary Medicine Comment on above: New Consultation Start: 11-10-2024 End: 02-09-2025 CBC W Auto Differential panel - Blood COMPLETE BLOOD COUNT AND DIFFERENTIAL Lab Routine Malignant neoplasm of lower lobe of right lung (HCC) Expected: 11/10/2024 (Approximate), Expires: 02/09/2025 [facility] Comment on above: Expected: 11/10/2024 (Approximate), Expi res: 02/09/2025 Start: 11-10-2024 End: 02-09-2025 Cobalamin (Vitamin B12) [Mass/volume] in Serum or Plasma VITAMIN B12 Lab Routine Malignant neoplasm of lower lobe of right lung (HCC) Expected: 11/10/2024 (Approximate), Expires: 02/09/2025 [facility] Comment on above: Expected: 11/10/2024 (Approximate), Expi res: 02/09/2025 Start: 11-10-2024 End: 02-09-2025 Comprehensive metabolic 2000 panel - Serum or Plasma COMPREHENSIVE METABOLIC PANEL Lab Routine Malignant neoplasm of lower lobe of right lung (HCC) Expected: 11/10/2024 (Approximate), Expires: 02/09/2025 [facility] Comment on above: Expected: 11/10/2024 (Approximate), Expi res: 02/09/2025 Start: 11-10-2024 End: 02-09-2025 Ferritin [Mass/volume] in Serum or Plasma FERRITIN Lab Routine Malignant neoplasm of lower lobe of right lung (HCC) Expected: 11/10/2024 (Approximate), Expires: 02/09/2025 [facility] Comment on above: Expected: 11/10/2024 (Approximate), Expi res: 02/09/2025 Start: 11-10-2024 End: 02-09-2025 Folate [Mass/volume] in Serum or Plasma FOLATE, SERUM Lab Routine Malignant neoplasm of lower lobe of right lung (HCC) Expected: 11/10/2024 (Approximate), Expires: 02/09/2025 [facility] Comment on above: Expected: 11/10/2024 (Approximate), Expi res: 02/09/2025 Start: 11-10-2024 End: 02-09-2025 Iron and Iron binding capacity panel - Serum or Plasma IRON AND TIBC Lab Routine Malignant neoplasm of lower lobe of right lung (HCC) Expected: 11/10/2024 (Approximate), Expires: 02/09/2025 [facility] Comment on above: Expected: 11/10/2024 (Approximate), Expi res: 02/09/2025 Start: 11-10-2024 End: 11-26-2025 MR Brain WO and W contrast IV MRI BRAIN WO/W IVCON Radiology Routine Malignant neoplasm of lower lobe of right lung (HCC) Expected: 11/10/2024, Expires: 11/26/2025 [facility] Work Phone: Comment on above: Expected: 11/10/2024, Expires: Start: 11-10-2024 End: 11-10-2024 Patient encounter procedure 11/10/2024 9:00 AM EDT Office Visit Radiation Oncology [address] [place] [address] [place] [address] Ezra Lizama MD [address] [place] [address] [place] [address] Consult dx Lung cancer Radiation Oncology Comment on above: Consult dx Lung cancer Start: 11-10-2024 End: 11-10-2024 Follow-up encounter 11/10/2024 8:30 AM EDT Visit (SP) Office Hematology/Oncology [address] [place] [address] [place] [address] Kvng Perez MD [address] [facility] [address] 2 week follow up Hematology/Oncol ogy Comment on above: 2 week follow up Start: 11-08-2024 End: 11-08-2024 Patient encounter procedure 11/08/2024 2:30 PM EDT Office Visit [facility] [address] [place] [phone] Jennifer Best MD [address] [place], [place] [phone] [facility] Start: 10-30-2024 End: 10-30-2024 Nutrition therapy 10/30/2024 2:30 PM EDT Education Nutrition Therapy [address] [place] [phone] Jesusita Pabon, JAMIL [address] [place] [address] Nutri phone call ref by Dr Perez Nutrition Therapy Comment on above: Nutri phone call ref by Dr Perez Start: 10-27-2024 End: 10-27-2024 ambulatory 10/27/2024 9:00 AM EDT Visit (SP) Office Hematology/Oncology [address] [place] [address] [place] [address] Kvng Perez MD [address] [place] [address] [place] [address] 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 Hematology/Oncol ogy Comment on above: 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 Start: 09-29-2024 COVID-19 Vaccine (4 - Mixed Product risk ) COVID-19 Vaccine (4 - Mixed Product risk ) [facility] Start: 08-31-2024 Plain chest X-ray XR chest 2V* [facility] Start: 02-13-2024 Covid-19 Vaccine () Covid-19 Vaccine () [facility] Start: 10-01-2023 Diabetes Screening Diabetes Screening [facility] Start: 11-03-2011 Administration of varicella zoster vaccine Zoster (Shingles) Vaccine (1 of 2) [facility] Start: 11-03-2011 Pneumococcal Vaccine: 50+ (1 of 1 - PCV) Pneumococcal Vaccine: 50+ (1 of 1 - PCV) [facility] Start: 11-03-2011 Shingrix Vaccine (1 of 2) Shingrix Vaccine (1 of 2) [facility] Start: 2006 Prostate specific antigen measurement Prostate Cancer Screening Discussion [facility] Start: 2006 Screening for malignant neoplasm of colon [facility] Start: 1980 Administration of varicella zoster vaccine Zoster (Shingles) Vaccine (1 of 2) [facility] Start: 1980 DTaP,Tdap and Td Vaccines (1 - Tdap) DTaP,Tdap and Td Vaccines (1 - Tdap) [facility] Start: 1980 Pneumococcal Vaccine: 50+ (1 of 2 - PCV) Pneumococcal Vaccine: 50+ (1 of 2 - PCV) [facility] Start: 1980 Shingrix Vaccine (1 of 2) Shingrix Vaccine (1 of 2) [facility] Start: 1980 Urine microalbumin profile DTaP,Tdap,Td Vaccine (1 - Tdap) [facility] Start: 11-03-1979 Adult BMI Follow Up Plan Adult BMI Follow Up Plan [facility] Start: 11-03-1979 Adult BMI Screening Adult BMI Screening [facility] Start: 11-03-1979 Anxiety Screening Anxiety Screening [facility] Start: 11-03-1979 Depression Screening Depression Screening [facility] Start: 11-03-1979 Hepatitis C screening Hepatitis C Screening [facility] Start: 11-03-1979 HIV screening HIV Screening [facility] Start: 1973 Depression Screening Depression Screening [facility] Start: 1973 Tobacco Screening Tobacco Screening [facility] BLOOD CULTURE 1 BLOOD CULTURE 1 Lab Routine 10/06/2024 6:12 PM EDT [facility] Work Phone: BLOOD CULTURE 2 BLOOD CULTURE 2 Lab Routine 10/06/2024 6:20 PM EDT [facility] CARDIAC IMPLANTABLE DEVICE CHECK CARDIAC IMPLANTABLE DEVICE CHECK PACEART Routine 11/20/2024 10:41 AM EDT [facility] Work Phone: CT Guidance for radi ation treatment of Unspecified body region CT SIM PLANNING RADIATION ONCOLOGY Radiology Routine Malignant neoplasm of lower lobe of right lung (HCC) Ordered: 12/04/2024 [facility] Work Phone: Comment on above: Ordered: 12/04/2024 End: 12-23-2025 SPIROMETRY BASELINE ONLY SPIROMETRY BASELINE ONLY PFT Routine Malignant neoplasm of lower lobe of right lung (HCC) 1 Occurrences starting 11/23/2024 until 12/23/2025 [facility] Work Phone: Comment on above: 1 Occurrences starting 11/23/2024 until 12/23/2025 XR Chest 2 Views [facility] Immunizations Immunization Date Immunization Notes Care Provider [facility] 03-31-2024 Seasonal, trivalent, recombinant, injectable influenza vaccine, preservative free Bishop Bjorn HEALTH 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 04-07-2021 influenza, seasonal, injectable Bishop Bjorn HEALTH NURSE-EMPLOYMENT COACH Work Phone: [facility] 09-25-2020 SARS-CoV-2 (COVID-19 ) mRNA-1273 vaccine VICTORIA FLORES [facility] Comment on above: Result Comment: [id number]: 51 08-28-2020 SARS-CoV-2 (COVID-19 ) mRNA-1273 vaccine VICTORIA FLORES [facility] 06-14-2020 SARS-CoV-2 (COVID-19 ) mRNA-1273 vaccine VICTORIA FLORES [facility] Comment on above: Result Comment: pt alondra mac he is fully vaccinated 04-02-2020 influenza virus vaccine, unspecified formulation VICTORIA FLORES [facility] 04-02-2020 Influenza, injectabl e, Madin Pily Canine Kidney, quadrivalent with preservative 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 Work Phone: [facility] 03-14-2017 influenza virus vaccine, unspecified formulation VICTORIA FLORES [facility] Payers Date Payer Category Payer [facility] [id number] [id number] 2013 [facility] Managed Care - Other ANTH [id number] 1961 Unknown [id number] 2.16.840.1.636847.3.579. 2.593 1961 Unknown [id number] 2.16.840.1.824358.3.579. 2.593 1961 Unknown [id number] 2.16.840.1.166400.3.579. 2.593 1961 Unknown [id number] 2.16.840.1.702807.3.579. 2.128 1961 Unknown [id number] 2.16.840.1.982014.3.579. 2.1285 1961 Unknown [id number] 2.16.840.1.426960.3.579. 2.1285 1961 Unknown [id number] 2.16.840.1.418307.3.579. 2.1285 1961 Unknown [id number] 2.16.840.1.741317.3.579. 2.1285 1961 Unknown [id number] 2.16.840.1.814838.3.579. 2.1285 1961 Unknown [id number] 2.16.840.1.374379.3.579. 2.1285 1961 Unknown [id number] 2.16.840.1.508152.3.579. 2.128 1961 Unknown [id number] 2.16.840.1.915768.3.579. 2.1285 1961 Unknown [id number] 2.16.840.1.024206.3.579. 2.1285 1961 Unknown [id number] 2.16.840.1.656865.3.579. 2.1285 1961 Unknown [id number] 2.16.840.1.944562.3.579. 2.1286 1961 Unknown [id number] 2.16.840.1.559403.3.579. 2.727 1961 Unknown [id number] 2.16.840.1.858015.3.579. 2.727 1961 Unknown [id number] 2.16.840.1.458842.3.579. 2.727 1961 Unknown [id number] 2.16.840.1.030085.3.579. 2.727 1961 Unknown [id number] 2.16.840.1.008488.3.579. 2.727 1961 Unknown [id number] 2.16.840.1.674213.3.579. 2.727 1961 Unknown [id number] 2.16.840.1.030774.3.579. 2.727 1961 Unknown [id number] 2.16.840.1.304663.3.579. 2.727 1959 Unknown [id number] Social History Date Type Detail Facility Start: 06-29-2023 End: 10-25-2024 Tobacco smoking status Ex-smoker (finding) [facility] Tobacco smoking status Never [facility] Start: 10-25-2024 End: 11-15-2024 Sex Assigned At Male [facility] Start: 01-17-2015 End: 08-31-2024 Sex Male (finding) [facility] Start: 1960 Sex Assigned At Male F [facility] Tobacco smoking stat NHIS Tobacco smoking consumption unknown [facility] Start: 1960 Sex assigned at Not on file [facility] Start: 06-14-2016 End: 01-04-2017 History of tobacco use Current smoker [facility] Start: 06-14-2016 End: 01-04-2017 History of tobacco use Cigarette Smoker [facility] History of tobacco use Passive smoker [facility] Start: 10-25-2024 End: 11-08-2024 Tobacco use and exposure Smokeless tobacco non-user [facility] Start: 10-25-2024 End: 11-17-2024 Alcoholic beverage intake Ex-drinker (finding) [facility] Start: 10-25-2024 End: 11-15-2024 History of Social function [employer] Start: 03-31-2017 End: 11-08-2024 Alcoholic beverage intake Current drinker of alcohol (finding) [employer] Has the [employer], or [employer] threatened to shut off services in your home in past 12Mo No [employer] [employer] How often to you hav e a drink containing alcohol? Monthly or less [employer] How many standard drinks containing alcohol do you have on a typical day? 1 or 2 [employer] How often do you hav e 6 or more drinks on 1 occasion? Never [employer] Start: 11-17-2024 Alcohol Comment rarely [facility] Medical Equipment Procedure Code Equipment Code Equipment Origin al Text Equipment Identifier Dates Lead Pcng 52cm A tr Vntrc Ingevity+ Xtd Rtrct Fx Is-1 Cnct - [id number] - [id number] FDA Start: 11-09-2024 Lead Pcng 59cm A tr Vntrc Ingevity+ Xtd Rtrct Fx Is-1 Cnct - [id number] - [id number], [id number] FDA Start: 11-09-2024 Cardiac pacemaker, device (physical object) ([id number]) Pacemaker .75cm Acld Mri El 2 Chmbr Is-1 Cnct Avinash Mntr 4.45 - [id number] - [id number] ()[id number] , [id number] FDA Start: 11-09-2024 [id number] Start: 10-12-2024 [id number] Start: 10-12-2024 [id number] Start : 11-09-2024 Goals Date Patient Goal Desired Activity /State Personal health goal Comment on above: Formatting of this n ote might be different from the original. Evaluation of progress towards goal: Pt plans to return home self care with support. Functional Status Date Assessment Result Facility 06-29-2023 Functional Status N/A [facility] Clinical Notes 06-29-2023 to 12-12-2024 Telephone Encounter - Tiffanie Hargrove RN - 12/12/2024 4:29 PM EDTTelephone Encounter - Tiffanie Hargrove RN - 12/12/2024 4:29 PM EDTTelephone Encounter - Radha Perdue - 12/12/2024 11:04 AM EDT Note Date & Type Note Facility 12-12-2024 Telephone encounter Note Call received from pt's stating they would like to discuss physical therapy as an option for pt when he is here on Wednesday seeing Dr Wilkerson. Pt will need a face to face encounter for this order. Tiffanie Hargrove RN [facility] Work Phone: 12-12-2024 Miscellaneous Notes Call received from pt's stating they would like to discuss physical therapy as an option for pt when he is here on Wednesday seeing Dr Wilkerson. Pt will need a face to face encounter for this order. Tiffanie Hargrove RN documented in this encounter [facility] 12-12-2024 Telephone encounter Note Patient scheduled. Radha Perdue [facility] 12-12-2024 Miscellaneous Notes Patient scheduled. Radha Perdue SIM rescheduled to 12/08. Per appointments, pt's SIM was rescheduled to 11/30. Radha Perdue SIM scheduled for 11/23 -- Education w/ Tiffanie scheduled on 11/30 (Tiff was out on the ). Patient notified of ed appt. Radha Perdue Images from the original note were not included. Will schedule once RTC date is deteremined for XRT. Radha Perdue documented in this encounter [facility] 12-08-2024 Telephone encounter Note Voicemail received from pt's stating she has questions regarding a prior auth that needs to be done for [employer] testing. Call placed to pt's and message left requesting her to call our office back Tiffanie Hargrove RN [facility] Work Phone: 12-08-2024 Miscellaneous Notes Voicemail received from pt's stating she has questions regarding a prior auth that needs to be done for [employer] testing. Call placed to pt's and message left requesting her to call our office back Tiffanie Hargrove RN documented in this encounter [facility] 12-08-2024 Telephone encounter Note No need to repeat now. Thank you. [facility] 12-08-2024 Miscellaneous Notes No need to repeat now. Thank you. Pt's CT brain done here on 12/07 recommends brain MRI with and without. Pt had a brain MRI done on 11/02 at [facility]. Does this need ot be repeated or no? Please advise Tiffanie Hargrove RN documented in this encounter [facility] 12-08-2024 Telephone encounter Note Pt's CT brain done here on 12/07 recommends brain MRI with and without. Pt had a brain MRI done on 11/02 at [facility]. Does this need ot be repeated or no? Please advise Tiffanie Hargrove RN [facility] Work Phone: 12-08-2024 History of Presen t illness Narrative JATIN KOCH [id number] 12/08/2024 [facility] Radiation Oncology Department SIMULATION NOTE DATE OF SIMULATION: 12/08/2024 THERAPIST: Nancy De La Garza MACHINE: M-KOPA DIAGNOSIS: Malignant neoplasm of overlapping sites of right bronchus and lungC34.81 AREA: Lung CONTRAST: IV Oral Consent in Epic: Yes Oral- 25cc omni 300 diluted on 450mL of water IV- 50 cc omni 300 injected via the lt wrist PATIENT POSITION: Supine. FIXATION DEVICE: In order to achieve accurate and reproducible treatments, the patient is immobilized with orfit AIO A time-out was conducted and recorded by the therapist. CT scan was completed for target localization and planning. Field arrangement will be determined after plan has been completed. The patient is scheduled for a verification simulation on the treatment machine to ensure proper set-up and field arrangement is correct prior to the first treatment of primary and boost hartmann if applicable. Patient education will be completed per nursing. Electronically Signed Ezra Lizama M.D. / CDT 54:44 PM documented in this encounter [facility] 12-08-2024 History of Presen t illness Narrative JATIN KOCH [id number] 12/08/2024 [facility] Cancer [place] [facility] - Department of Radiation Oncology Treatment Planning Note For reasons stated in the consult note, Jatin Koch is a candidate for radiation therapy. Based on review and interpretation of the relevant diagnostic studies together with the exam findings, Jatin Koch was simulated on 12/08/2024 at which time the target volume and/or requisite hartmann were delineated, as indicated in the simulation note, to be treated according to the prescription. An ITV was created from all the phases of respiratory motion captured by the 4DCT image sets. Motion management allowed for design of patient specific planning target volume and reduced the radiation exposure to normal tissues. The treatment target and organs at risk were contoured on the simulation scan using the fused PET /. Special consideration to these and other structures was given in light of the potential for increased toxicities of combined chemoradiation and presence of pacemaker. After reviewing multiple treatment plans with dosimetry, the best plan was approved to deliver the prescribed course of radiation to the target area using inverse planning to allow for the best isodose distribution, treating to the 97.2% isodose line with 6MV and 2 hartmann. Custom MLC asym jaws for IMRT were the treatment devices used to shape/modify the beams. Limiting dose to normal tissue was confirmed upon review of the calculated dose volume histogram. IMRT planning was used because it best met the dose/volume constraints for the organs at risk for this patient, better than what could be achieved using conventional or 3D planning. The specific dose requirements for the PTV, organs at risk and dose-volume histograms are contained in this treatment plan and/or elsewhere in the medical record. A completed summary of this plan dated 12/13/2024 incorporated herein by reference includes dose, beam arrangements, energy, blocking, isodose distribution, and/or ports and DVH. Electronically Signed Ezra Lizama M.D. :01 AM documented in this encounter [facility] 12-08-2024 Note HNO ID: [id number] Author: EZRA LIZAMA MD Service: ? Author Type: Physician Type: Progress Notes Filed: 12/10/2024 16:44 Note Text: JATIN KOCH [id number] 12/08/2024 [facility] Radiation Oncology Department SIMULATION NOTE DATE OF SIMULATION: 12/08/2024 THERAPIST: Nancy De La Garza MACHINE: M-KOPA DIAGNOSIS: Malignant neoplasm of overlapping sites of right bronchus and lungC34.81 AREA: Lung CONTRAST: IV Oral Consent in Epic: Yes Oral- 25cc omni 300 diluted on 450mL of water IV- 50 cc omni 300 injected via the lt wrist PATIENT POSITION: Supine. FIXATION DEVICE: In order to achieve accurate and reproducible treatments, the patient is immobilized with orfit AIO A time-out was conducted and recorded by the therapist. CT scan was completed for target localization and planning. Field arrangement will be determined after plan has been completed. The patient is scheduled for a verification simulation on the treatment machine to ensure proper set-up and field arrangement is correct prior to the first treatment of primary and boost hartmann if applicable. Patient education will be completed per nursing. Electronically Signed Ezra Lizama M.D. / CDT :44 PM [facility] 12-07-2024 History of Presen t illness Narrative Jatin Koch II Date of visit: 12/07/2024 Date of : 1960 Age: 64 y.o. Patient Active Problem List Diagnosis AV block BPH with urinary obstruction Arthritis Gout Squamous cell lung cancer (CMS-HCC) Syncope Pacemaker- [employer] Allergies Allergen Reactions Bactrim [Sulfamethoxazole-Trimethoprim] Codeine diaphoresis Sulfamethoxazole Other (See Comments) and GI Disturbance Urinary retention Current Outpatient Medications Medication Sig Dispense Refill acetaminophen (TYLENOL EXTRA STRENGTH) 500 mg tablet Take 1 tablet (500 mg total) by mouth every 6 (six) hours as needed for pain. albuterol (PROVENTIL HFA;VENTOLIN HFA) 90 mcg/actuation inhaler Inhale 2 puffs every 4 (four) hours as needed. albuterol (PROVENTIL,VENTOLIN) 2.5 mg /3 mL (0.083 %) nebulizer solution Inhale 3 mL (2.5 mg total) by nebulization every 6 (six) hours as needed. benzonatate (TESSALON PERLES) 200 mg capsule Take 1 capsule (200 mg total) by mouth 3 (three) times a day as needed for cough. dextromethorphan-guaiFENesin (MUCINEX DM) 30-600 mg tablet extended release 12 hr Take 2 tablets by mouth in the morning and 2 tablets before bedtime. diphenhydrAMINE (BenadryL) 25 mg capsule Take 1 capsule (25 mg total) by mouth. loratadine (CLARITIN REDITABS) 10 mg disintegrating tablet [...] ORAL) Take by mouth in the morning. ondansetron (ZOFRAN) 8 mg tablet Take 1 tablet (8 mg total) by mouth every 8 (eight) hours as needed. predniSONE (DELTASONE) 20 mg tablet Take 1 tablet (20 mg total) by mouth. prochlorperazine (COMPAZINE) 10 mg tablet Take 1 tablet (10 mg total) by mouth every 6 (six) hours as needed. No current facility-administered medications for this visit. Chief Complaint Patient presents with Follow-up add on ov -per ser-scheduled w/pt-ok per ser r/s w pt from am appt due to oncology appt ok per cathie History of Present Illness Jatin Koch II is a 64-year-old gentleman who is here on follow-up for device check after implanted in October for syncope and intermittent complete heart block. Currently being treated for lung CA. Dr. Veloz implanted 11/09/2024. He was seen by me on the 22 of November. There was concerns of atrial lead functioning that warranted that visit. Atrial thresholds were elevated though stable. Patient was not feeling very well at that visit. Since then, he has been worked up for PNA, positive for MRSA as well as COVID. He is actually feeling better now after completion of antibiotics. Device interrogation noting intermittent atrial loss of capture. Reprogrammed at 5 volts 0.4 millisecond bipolar. Refer to device interrogation report for full explanation. Incision is well approximated. Starting radiation simulation tomorrow. Will continue remote monitoring. Otherwise tentative six-month follow-up Past Medical History: Diagnosis Date Arthritis Hypertension Lung cancer (CMS-HCC) Sleep apnea No data recorded No data recorded No data recorded Past Surgical History: Procedure Laterality Date EP Invasive DC PPM Left 11/09/2024 Performed by Robert Veloz MD at [facility] (EP) SKIN BIOPSY basal cell carcinoma removed [...] Types: Cigarettes Quit date: 01/04/2017 Years since quittin.9 Smokeless tobacco: Never Vaping Use Vaping status: Never Used Substance and Sexual Activity Alcohol use: Not Currently Drug use: Yes Frequency: 3.0 times per week Types: Medical Marijuana, Marijuana Comment: 3 x a day 5mg THC gummy Sexual activity: Yes Other Topics Concern Caffeine [...] Systems Review of Systems Constitutional: Negative for decreased appetite, malaise/fatigue, weight gain and weight loss. HENT: Negative for nosebleeds. Eyes: Negative for blurred vision and double vision. Cardiovascular: Negative for chest pain, leg swelling, near-syncope, palpitations and syncope. Respiratory: Positive for cough and shortness of breath. Negative for wheezing. Hematologic/Lymphatic: Does not bruise/bleed easily. Musculoskeletal: Negative for falls, joint pain, joint swelling, muscle cramps and muscle weakness. Gastrointestinal: Negative for bloating, abdominal pain, constipation, diarrhea, heartburn, nausea and vomiting. Genitourinary: Negative for hematuria. Neurological: Positive for light-headedness. Negative for dizziness, headaches and vertigo. Psychiatric/Behavioral: Negative for depression. The patient does not have insomnia and is not nervous/anxious. Vascular: Negative for claudication and lower extremity wounds or ulcers. CARDIOVASCULAR: Please review HPI. Physical Examination General [...] mood, memory and judgement. VITAL SIGNS: BP 110/62 Pulse 90 Ht 172.7 cm (5' 8 ) Wt 85.3 kg (188 lb) SpO2 97% BMI 28.59 kg/m Orders Placed or Reconciled This Encounter Medications predniSONE (DELTASONE) 20 mg tablet Sig: Take 1 tablet (20 mg total) by mouth. albuterol (PROVENTIL,VENTOLIN) 2.5 mg /3 mL (0.083 %) nebulizer solution Sig: Inhale 3 mL (2.5 mg total) by nebulization every 6 (six) hours as needed. albuterol (PROVENTIL HFA;VENTOLIN HFA) 90 mcg/actuation inhaler Sig: Inhale 2 puffs every 4 (four) hours as needed. DISCONTD: doxycycline (VIBRAMYCIN) 100 mg capsule Sig: Take 1 capsule (100 mg total) by mouth. dextromethorphan-guaiFENesin (MUCINEX DM) 30-600 mg tablet extended release 12 hr Sig: Take 2 tablets by mouth in the morning and 2 tablets before bedtime. ondansetron (ZOFRAN) 8 mg tablet Sig: Take 1 tablet (8 mg total) by mouth every 8 (eight) hours as needed. prochlorperazine (COMPAZINE) 10 mg tablet Sig: Take 1 tablet (10 mg total) by mouth every 6 (six) hours as needed. diphenhydrAMINE (BenadryL) 25 mg capsule Sig: Take 1 capsule (25 mg total) by mouth. Medications Discontinued During This Encounter Medication Reason NON FORMULARY Therapy completed doxycycline (VIBRAMYCIN) 100 mg capsule Therapy completed IMPRESSIONS/PLAN 1. Pacemaker - Device Interrogation; Future 2. AV block 3. Squamous cell carcinoma of lung, unspecified laterality ([facility]) 1. Intermittent complete heart block symptomatic with syncopal episodes s/p [employer] dual-chamber pacemaker 11/09/2024. Elevated atrial threshold . Reprogrammed today. Appropriate capture. RV pacing 100%. Refer to device interrogation report. 2. Right lower lobe Ca. Bronchoscopy 11/20/2024. Pending radiation/chemo Tentative six-month follow-up. Will continue remote checks during treatment phase Patient seen while Dr. Reyna was immediately available in the office suite TODAYS ORDERS Orders Placed This Encounter Procedures Device Interrogation FOLLOW UP No follow-ups on file. PCP: CLINT PRINCE Referring Physician: CLINT Prince [address] [place] [address] [place] [address] CLINT Chowdary 12/07/24 [id number] documented in this encounter [facility] 12-07-2024 History of Presen t illness Narrative I agree with the findings in the scanned document. documented in this encounter [facility] 12-07-2024 History of Presen t illness Narrative Radiology Service Progress Note PATIENT NAME: Jatin Koch II DATE OF SERVICE: December 07, 2024 TIME: 8:26 AM PATIENT IDENTITY VERIFICATION COMPLETED USING TWO (2) IDENTIFIERS: Name and Date of confirmed by patient verbally. FALL SCREENING: Has the patient had 2 falls in the last year or 1 fall with injury or currently using an Ambulatory Assistive Device (Walker, Cane, Wheelchair, Crutches, etc.)? No PATIENT GENDER DATA: Assigned male at PATIENT RELEVANT IMPLANT DATA REVIEWED: Not Applicable PATIENT PRESENTS WITH AN IMPLANTABLE OR ATTACHED PICK UP OPERATOR: No RADIOLOGY DEPARTMENT: CT; Exam(s) Completed: Brain PERIPHERAL IV DATA: Not applicable SIGNED BY: RT Meagan(R) December 07, 2024 8:26 AM documented in this encounter [facility] 12-07-2024 Note HNO ID: [id number] Author: ILEANA LITTLE RT(R) Service: ? Author Type: Technologist Type: Progress Notes Filed: 12/07/2024 08:26 Note Text: Radiology Service Progress Note PATIENT NAME: Jatin Koch II DATE OF SERVICE: December 07, 2024 TIME: 8:26 AM PATIENT IDENTITY VERIFICATION COMPLETED USING TWO (2) IDENTIFIERS: Name and Date of confirmed by patient verbally. FALL SCREENING: Has the patient had 2 falls in the last year or 1 fall with injury or currently using an Ambulatory Assistive Device (Walker, Cane, Wheelchair, Crutches, etc.)? No PATIENT GENDER DATA: Assigned male at PATIENT RELEVANT IMPLANT DATA REVIEWED: Not Applicable PATIENT PRESENTS WITH AN IMPLANTABLE OR ATTACHED PICK UP OPERATOR: No RADIOLOGY DEPARTMENT: CT; Exam(s) Completed: Brain PERIPHERAL IV DATA: Not applicable SIGNED BY: RT Meagan(R) December 07, 2024 8:26 AM [facility] 12-06-2024 Telephone encounter Note Records scanned. [facility] 12-06-2024 Miscellaneous Notes Records scanned. Pt's CXR shows no changes. Tiffanie Hargrove RN Consider going to ER if symptoms get worse. Thank you Call received from pt's stating pt continues with fevers. Pt saw PCP today and had a CXR done. Waiting for results. PCP started pt on prednisone and albuterol nebulizer treatments. states she is going to give pt Tylenol around the clock to see if this helps control the fevers. Pt is weaker now and also having a little more shortness of breath, which is why PCP ordered CXR. Pt's wanted our office to be aware. Reyna: can you get records from PCP please Thanks Tiffanie Hargrove RN documented in this encounter [facility] 12-06-2024 Telephone encounter Note Pt's CXR shows no changes. Tiffanie Hargrove RN [facility] Work Phone: 12-05-2024 Telephone encounter Note Consider going to ER if symptoms get worse. Thank you [facility] 12-05-2024 Telephone encounter Note Call received from pt's stating pt continues with fevers. Pt saw PCP today and had a CXR done. Waiting for results. PCP started pt on prednisone and albuterol nebulizer treatments. states she is going to give pt Tylenol around the clock to see if this helps control the fevers. Pt is weaker now and also having a little more shortness of breath, which is why PCP ordered CXR. Pt's wanted our office to be aware. Reyna: can you get records from PCP please Thanks Tiffanie Hargrove, RN [facility] 12-04-2024 History of Presen t illness Narrative Images from the original note were not included. Radiation Oncology - New Patient/Consult Note PATIENT NAME: Jatin Koch II PATIENT Signed: Ezra Lizama MD I spent a total of 60 minutes on the date of the service which included preparing to see the patient, [id number] patient care, and counseling and educating the patient/family/caregiver. This document has been created with the use of voice recognition technology. It may contain inaccuracies, misspellings, inaccurate syntax or inappropriate word context that are a result of the inadequacies/shortcomings of said technology/software. Pacemaker/Defibrillator?Yes Previous Cancer(s)? Basal cell carcinoma left forearm Previous Radiation?N Lupus/Scleroderma?N On body monitoring device? N Richardson Cantu RN documented in this encounter [facility] 11-29-2024 Telephone encounter Note SIM rescheduled to 12/08. [facility] 11-28-2024 Telephone encounter Note IV start appointment has been added. I called and spoke to Gina Eloy. I reminded her of the CT on 12/07/24. I confirmed his SIM arrival date and time on the . Lauren Brownlee PSS [facility] 11-28-2024 Miscellaneous Notes IV start appointment has been added. I called and spoke to [place] Eloy. I reminded her of the CT on 12/07/24. I confirmed his SIM arrival date and time on the . Lauren Brownlee PSS Please notify pt and adjust appts. Macy Oviedo, RN Sim rescheduled for 12/08/24 at 10:30 Will need nurse visit for IV start Nancy De La Cruz, RT(R)(T) Images from the original note were not included. You Sharon Vásquez, PRITI; Tiffanie Hargrove RN1 minute ago (1:26 PM) AW I [...] why I wanted to see with Dr Lizama if SIM was ok to be prior to that. Macy Oviedo, RN Nurse visit has been canceled Lauren B PSS Sim cancelled for 11/30/24; will reschedule once notified when to re add PSS- please cancel nurse visit for 11/30 Nancy De La Cruz RT(R)(T) PTs spouse called in to let us know Jatin has tested positive for covid. He went to ER last night due to persistent fever, diaphoreseis, chills and they tested him there. He is too late in symptoms for paxlovid, so they told them he has to tough it out. He is still running fevers and knows they'll need to reschedule the SIM this week. Spouse also requested that we let Eloy Juares and Falguni (pharm student) know of this as he had his mask off during education. Dr Lizama- pt is scheduled for a CT on 12/07. Do you want to wait until after this to do SIM or should we just postpone sim approximately 1 week? Please advise. Macy Oviedo RN documented in this encounter [facility] 11-28-2024 Telephone encounter Note Please notify pt and adjust appts. Macy Oviedo RN [facility] 11-28-2024 Telephone encounter Note Sim rescheduled for 12/08/24 at 10:30 Will need nurse visit for IV start Nancy De La Cruz RT(R)(T) [facility] 11-28-2024 Telephone encounter Note Images from the original note were not included. You Sharon Vásquez, PRITI; Tiffanie Hargrove RN1 minute ago (1:26 PM) AW I [...] why I wanted to see with Dr Lizama if SIM was ok to be prior to that. Macy Oviedo, RN T [facility] 11-28-2024 Telephone encounter Note Nurse visit has been canceled Lauren Brownlee PSS [facility] 11-28-2024 Telephone encounter Note Sim cancelled for 11/30/24; will reschedule once notified when to re add PSS- please cancel nurse visit for 11/30 Nancy De La Cruz RT(R)(T) [facility] 11-28-2024 Telephone encounter Note PTs spouse called in to let us know Jatin has tested positive for covid. He went to ER last night due to persistent fever, diaphoreseis, chills and they tested him there. He is too late in symptoms for paxlovid, so they told them he has to tough it out. He is still running fevers and knows they'll need to reschedule the SIM this week. Spouse also requested that we let Eloy Juares and Falguni (pharm student) know of this as he had his mask off during education. Dr Lizama- pt is scheduled for a CT on 12/07. Do you want to wait until after this to do SIM or should we just postpone sim approximately 1 week? Please advise. Macy Oviedo, RN [facility] 11-27-2024 Telephone encounter Note Recived outside call Eulalio Porras. Patient presented to [facility] ED w/ 5 days of fever. Positive [...] advised to call them tomorrow and reschedule his appointment. [facility] Work Phone: 11-27-2024 Miscellaneous Notes Recived outside call fromDr Porras. Patient presented to [facility] ED w/ 5 days of fever. Positive [...] advised to call them tomorrow and reschedule his appointment. documented in this encounter [facility] 11-27-2024 Telephone encounter Note Spoke to patient's , Eloy. Dr Robertson suggested patient go to the nearest emergency room to be evaluated for the fever, chills, & diaphoretic episodes. She is aware patient may need to get bloodwork / blood cultures drawn, and may need to be admitted for IV antibiotics. Eloy is in agreement with this plan. [facility] 06-16-2025 Miscellaneous Notes Spoke to patient's , Eloy. Dr Robertson suggested patient go to the nearest emergency room to be evaluated for the fever, chills, & diaphoretic episodes. She is aware patient may need to get bloodwork / blood cultures drawn, and may need to be admitted for IV antibiotics. Eloy is in agreement with this plan. Patient called and stated if something else can be given to patient for his MRSA. He is running fevers, getting chills,and diuretic episodes She stated the doxycyline is not working [phone] Eloy documented in this encounter [facility] 11-27-2024 Telephone encounter Note Called and spoke to Jatin and we scheduled him for a CT on 12/07/24 at 8:30 AM Lauren B PSS [facility] 11-27-2024 Miscellaneous Notes Called and spoke to Jatin and we scheduled him for a CT on 12/07/24 at 8:30 AM Lauren B PSS Please call pt's and schedule CT head ordered by Dr Wilkerson. Thanks Tiffanie Hargrove, PRITI I ordered a CT head. Thank you Pt is here for education today and is concerned that pt has been having brain fog lately (for at least 3 weeks), doesn't remember things, feels dizzy and woozy at times, and has continued weakness and fatigue. Pt is due for SIM on Wednesday. Had a brain MRI on 11/02 that was negative. Please advise Tiffanie Hargrove RN documented in this encounter [facility] 11-27-2024 Telephone encounter Note Please call pt's and schedule CT head ordered by Dr Wilkerson. Thanks Tiffanie Hargrove RN [facility] Work Phone: 11-27-2024 Telephone encounter Note I ordered a CT head. Thank you [facility] 11-27-2024 Telephone encounter Note Patient called and stated if something else can be given to patient for his MRSA. He is running fevers, getting chills,and diuretic episodes She stated the doxycyline is not working [phone] Eloy [facility] 11-27-2024 Telephone encounter Note Pt is here for education today and is concerned that pt has been having brain fog lately (for at least 3 weeks), doesn't remember things, feels dizzy and woozy at times, and has continued weakness and fatigue. Pt is due for SIM on Wednesday. Had a brain MRI on 11/02 that was negative. Please advise Tiffanie Hargrove RN [facility] 11-27-2024 Note HNO ID: [id number] Author: TIFFANIE HARGROVE RN Service: ? Author Type: Registered Nurse Type: Progress Notes Filed: 11/27/2024 11:02 Note Text: ONCOLOGY PATIENT EDUCATION NOTE TOPIC: Chemotherapy, Medications: [...] was provided/discussed including but not limited to: abdominal discomfort, anemia, appetite changes, arthralgia, bowel habit changes, [...] patient, which included the importance of reporting any fever of 100.4F (38.0C) or greater to the healthcare team as noted on the provided wallet card and/or magnet. YES - Cancer Wellness Program Pamphlet. YES - 4th Tom Information. YES - Patient services information. YES - Pt received My Journey binder in radiation last week. Pt had this with him today and his chemo ed material was added to this. Time Spent: 1 hour 10 minutes REFERRAL (RECOMMENDATION): pt aware of services we offer here at our office. Tiffanie Hargrove, RN Boat Hoist Operator Helper Pre Chemo Patient identified by name and date of . YES Confirmed date and time for chemotherapy ? YES TBD Other appointments (labs, imaging) discussed? YES Discussed where to park (evaluation advisor), charge for parking NO Discussed where to [...] 5 days for MRSA. Encouraged to call smoke inspector who pt is following for MRSA to [...] a C1D1 call within 7 days of treatm (more content not included)... [facility] 11-27-2024 History of Presen t illness Narrative ONCOLOGY PATIENT EDUCATION NOTE TOPIC: Chemotherapy, Medications: [...] was provided/discussed including but not limited to: abdominal discomfort, anemia, appetite changes, arthralgia, bowel habit changes, [...] patient, which included the importance of reporting any fever of 100.4F (38.0C) or greater to the healthcare team as noted on the provided wallet card and/or magnet. YES - Cancer Wellness Program Pamphlet. YES - 4th Tom Information. YES - Patient services information. YES - Pt received My Journey binder in radiation last week. Pt had this with him today and his chemo ed material was added to this. Time Spent: 1 hour 10 minutes REFERRAL (RECOMMENDATION): pt aware of services we offer here at our office. Tiffanie Hargrove, RN Boat Hoist Operator Helper Pre Chemo Patient identified by name and date of . YES Confirmed date and time for chemotherapy ? YES TBD Other appointments (labs, imaging) discussed? YES Discussed where to park (evaluation advisor), charge for parking NO Discussed where to [...] 5 days for MRSA. Encouraged to call smoke inspector who pt is following for MRSA to [...] separate encounter to Dr Wilkerson regarding this. Tiffanie Hargrove, RN Images from the original note were not included. [facility] Department of Pharmacy Oncology Pharmacy Medication Education Patient Name: Jatin Koch II Primary Oncologist: Ana Diagnosis: Lung cancer Jatin Koch II is a 64 year old patient and spouse here today for medication education for IV CARBOPLATIN and PACLITAXEL . Drug Interactions: Clinically significant interactions with chemotherapy, immunosuppression, or other standard of care treatment plan medications anticipated: No. There are no [...] (15 minute increments) with the patient Eloy Lucas RPh documented in this encounter [facility] 11-27-2024 Telephone encounter Note Please sign pending antiemetics for pt's education today. Thanks Tiffanie Hargrove RN [facility] 11-27-2024 Miscellaneous Notes Please sign pending antiemetics for pt's education today. Thanks Tiffanie Hargrove RN documented in this encounter [facility] 11-27-2024 Miscellaneous Notes Addended by: ELOY LUCAS on: 11/27/2024 11:45 AM Modules accepted: Orders Addended by: ELOY LUCAS on: 11/27/2024 11:58 AM Modules accepted: Orders documented in this encounter [facility] 11-27-2024 Note Addended by: ELOY LUCAS on: 11/27/2024 11:45 AM Modules accepted: Orders [facility] 11-27-2024 Note Addended by: ELOY LUCAS on: 11/27/2024 11:58 AM Modules accepted: Orders [facility] 11-27-2024 Note HNO ID: [id number] Author: ELOY LUCAS RPh Service: ? Author Type: Pharmacist Type: Progress Notes Filed: 11/27/2024 11:40 Note Text: [facility] Department of Pharmacy Oncology Pharmacy Medication Education Patient Name: Jatin Koch II Primary Oncologist: Ana Diagnosis: Lung cancer Jatin Koch II is a 64 year old patient and spouse here today for medication education for IV CARBOPLATIN and PACLITAXEL . Drug Interactions: Clinically significant interactions with chemotherapy, immunosuppression, or other standard of care treatment plan medications anticipated: No. There are no [...] (15 minute increments) with the patient Eloy Lucas, [facility] 11-23-2024 Telephone encounter Note Per appointments, pt's SIM was rescheduled to 11/30. Radha Perdue [facility] 11-23-2024 Telephone encounter Note I spoke with patient & let him know his SIM was rescheduled to 11/30/2024 & to arrive by 8:30 am. CLAY Ramos [facility] 11-23-2024 Miscellaneous Notes I spoke with patient & let him know his SIM was rescheduled to 11/30/2024 & to arrive by 8:30 am. CLAY Ramos Added nurse visit for IV start on 11/30/2024 at 8:45 am. CALY Ramos Sim re- scheduled for 11/30/24 at 9:00 am Please add nurse visit for 8:45 for IV start, notify patient of arrival time of 8:30 Nancy Hussein RT(R)(T) PSS/RT: Dr. Lizama would like today's SIM rescheduled to next week any day 11/29-12/01. I notified Eloy, pt's , of the above and our office will call her back to reschedule. Please call pt's with new appt. She would like to keep chemo ed as scheduled on 11/27 [address] is [address] Lizama will be in [place] on 11/27 and 11/28. Richardson Cantu RN Eloy called back and current temp is 98.9, with Tylenol 1, 00mg at 8:00 a.m. Richardson Cantu RN I called and spoke with Eloy and notified her Dr. Lizama would like PFT's prior to starting radiation treatment. A diagnostic CT chest is not needed at this time but the CT/SIM is with IV contrast and she said that's probably what she was thinking of. I notified her the foundation labs need drawn at our office and she is in agreement. She said Jatin had a fever yesterday and felt lousy [...] call our office with an update. Dr. Lizama-PFT order pending your signature. Do you want to reschedule SIM to next week due to fever of 102.1 this a.m.? PSS: Please schedule PFT's at [facility] per patient request. These need scheduled prior to radiation new start. Thanks Richardson Cantu RN No need of PFTs and CT chest. [facility] labs will need to be drawn in our office. Will defer the other questions to the providers. Ileana Bear RN Eloy, pt's spouse, left a message stating Jatin had bronchoscopy and sputum culture and will be starting doxycycline 100mg BID x 7 days today for MRSA. She is said authorization for PFT's is still pending but would like them done at [facility]-no orders in [facility]. She also asked about a CT chest with IV contrast being ordered-no orders in [facility]. She said he is to have labs per Dr. Perze and is wondering if he can have those drawn at [facility] as well. Patient is currently scheduled for SIM today with Dr. Lizama. Please advise: Does patient need PFT's and/or CT chest? Can patient have [facility] one and other ordered labs at [facility] or do they need done at [facility]? Should SIM continue today or be rescheduled d/t MRSA? Thanks Richardson Cantu RN documented in this encounter [facility] 11-23-2024 Telephone encounter Note Added nurse visit for IV start on 11/30/2024 at 8:45 am. Blessing Dougherty PSS [facility] 11-23-2024 Telephone encounter Note Sim re- scheduled for 11/30/24 at 9:00 am Please add nurse visit for 8:45 for IV start, notify patient of arrival time of 8:30 Nancy Hussein RT(R)(T) [facility] 11-23-2024 Telephone encounter Note PSS/RT: Dr. Lizama would like today's SIM rescheduled to next week any day 11/29-12/01. I notified Eloy, pt's , of the above and our office will call her back to reschedule. Please call pt's with new appt. She would like to keep chemo ed as scheduled on 11/[address] Lizama will be in [place] on 11/27 and 11/28. Richardson Cantu RN [facility] 11-23-2024 Telephone encounter Note Eloy called back and current temp is 98.9, with Tylenol 1, 00mg at 8:00 a.m. Richardson Cantu RN [facility] 11-23-2024 Telephone encounter Note I called and spoke with Eloy and notified her Dr. Lizama would like PFT's prior to starting radiation treatment. A diagnostic CT chest is not needed at this time but the CT/SIM is with IV contrast and she said that's probably what she was thinking of. I notified her the foundation labs need drawn at our office and she is in agreement. She said Jatin had a fever yesterday and felt lousy [...] call our office with an update. Dr. Lizama-PFT order pending your signature. Do you want to reschedule SIM to next week due to fever of 102.1 this a.m.? PSS: Please schedule PFT's at [facility] per patient request. These need scheduled prior to radiation new start. Thanks Richardson Cantu RN [facility] 11-23-2024 Telephone encounter Note No need of PFTs and CT chest. [facility] Work Phone: 11-23-2024 Telephone encounter Note [facility] labs will need to be drawn in our office. Will defer the other questions to the providers. Ileana Bear RN [facility] Work Phone: 11-23-2024 Telephone encounter Note Patient has a string cough but unable to cough up mucous. Patient would like saline for nebulizer sent to [facility] at [address] in [facility] [id number] [facility] 11-23-2024 Miscellaneous Notes Patient has a string cough but unable to cough up mucous. Patient would like saline for nebulizer sent to [facility] at [address] in [facility] [address] documented in this encounter [facility] 11-23-2024 Telephone encounter Note Eloy, pt's spouse, left a message stating Jatin had bronchoscopy and sputum culture and will be starting doxycycline 100mg BID x 7 days today for MRSA. She is said authorization for PFT's is still pending but would like them done at [facility]-no orders in [facility]. She also asked about a CT chest with IV contrast being ordered-no orders in [facility]. She said he is to have labs per Dr. Perez and is wondering if he can have those drawn at [facility] as well. Patient is currently scheduled for SIM today with Dr. Lizama. Please advise: Does patient need PFT's and/or CT chest? Can patient have [facility] one and other ordered labs at [facility] or do they need done at [facility]? Should SIM continue today or be rescheduled d/t MRSA? Thanks Richardson Cantu RN [facility] 11-23-2024 Progress note Formatting of t his note might be different from the original. Called patient, no answer, so I called Eloy, his whom he has given permission to [...] explained to take with some food/ snack and light sensitivity. All questions answered. [facility] 11-23-2024 Miscellaneous Notes Called patient, no answer, so I called Eloy, his whom he has given permission to [...] explained to take with some food/ snack and light sensitivity. All questions answered. documented in this encounter [facility] 11-22-2024 History of Presen t illness Narrative Jatin Pulliam August ANSARI Date of visit: 11/22/2024 Date of : 1960 Age: 64 y.o. Patient Active Problem List Diagnosis AV block BPH with urinary obstruction Arthritis Gout Squamous cell lung cancer ([facility]) Syncope Allergies Allergen Reactions Bactrim [Sulfamethoxazole-Trimethoprim] Codeine diaphoresis Current Outpatient Medications Medication Sig Dispense Refill acetaminophen (TYLENOL EXTRA STRENGTH) 500 mg tablet Take 1 tablet (500 mg total) by mouth every 6 (six) hours as needed for pain. benzonatate (TESSALON PERLES) 200 mg capsule Take 1 capsule (200 mg total) by mouth 3 (three) times a day as needed for cough. loratadine (CLARITIN [...] in the morning. NON FORMULARY Med Name: MEIR Immunity support bid No current facility-administered medications for this visit. Chief Complaint Patient presents with Follow-up ov-wound ck-s/p imp 11-09 w/jzl-scheduled w/pt History of Present Illness Jatin Koch II is here today with his spouse on initial wound check post pacemaker implant for intermittent symptomatic complete heart block. He was recently seen at [facility] warranting pacer implant. He was seen at [facility] due to recurrent syncope and EKG findings of intermittent complete heart block. Transferred to [facility] after evaluation at the [place] office. He is currently being treated for lung CA right lower lobe through [facility]. Also treated for hypertension. Device implant 11/09/2024 Dr. Veloz. He had had scheduled outpatient bronchoscopy through [facility] on the . His device was interrogated [...] evaluated in the ER. He lives in [place]. He is scheduled for device check again in a couple weeks. I will see him at that time Past Medical History: Diagnosis Date Arthritis Hypertension Lung cancer (CMS-HCC) No data recorded No data recorded No data recorded Past Surgical History: Procedure Laterality Date EP Invasive DC PPM Left 11/09/2024 Performed by Robert Veloz MD at [facility] (EP) SKIN BIOPSY basal cell carcinoma removed [...] (5' 8 ) SpO2 98% BMI 31.78 kg/m Orders Placed or Reconciled This Encounter Medications [...] Squamous cell carcinoma of lung, unspecified laterality ([facility]) 1. Intermittent complete heart block symptomatic with syncopal episodes s/p [employer] dual-chamber pacemaker 11/09/2024. Elevated atrial threshold noted on device check through [facility] 11/20/2024. Repeat device check today:, x-ray completed yesterday with leads inappropriate positions. 2. Right lower lobe Ca. Bronchoscopy 11/20/2024. He woke up this morning feeling ill with low-grade fever. There was no abnormalities on his incisional check from pacemaker. Steri-Strips intact. No hematoma. Pending follow-up in a couple weeks for routine post pacer implant. I will have him see me again at that time. He understands to report to the ER if he has any worsening symptoms as listed above. Discussed with Dr. Reyna in office TODAYS ORDERS No orders of the defined types were placed in this encounter. FOLLOW UP No follow-ups on file. PCP: CLINT PRINCE Referring Physician: CLINT Prince [address] [place] [address] [place] [address] CLINT Chowdary 11/22/24 1405 documented in this encounter [facility] 11-22-2024 History of Presen t illness Narrative I agree with the findings in the scanned document. documented in this encounter [facility] 11-20-2024 Telephone encounter Note SIM scheduled for 11/23 -- Education w/ Tiffanie scheduled on 11/30 (Tiff was out on the ). Patient notified of ed appt. Radha Perdue [facility] 11-20-2024 Note HNO ID: [id number] Author: GILBERTO REYES APRN.BRUSH PAINTER Service: ? Author Type: Nurse Computer Systems Integrator Type: Anesthesia Procedure Notes Filed: 11/20/2024 11:10 Note Text: ANESTHESIOLOGY PROCEDURE NOTE Airway General Information Procedure Start Time/Medication Administration: 11/20/2024 10:57 AM Procedure End Time: 11/20/2024 10:57 AM Patient location during procedure: OR Timeout Performed Pre-procedure: timeout performed Consent Obtained: Yes Patient identity confirmed: arm band Staffing Anesthesiologist: Azalea Mejía MD BRUSH PAINTER: Gilberto Reyes APRN.BRUSH PAINTER Performed by: anesthesiologist and BRUSH PAINTER Indications and Patient Condition Indications for airway management: anesthesia Preoxygenated: yes anesthesia circuit Patient position: sniffing Method: asleep Cricoid Pressure: No Manual In-Line Stabilization: No Difficult Mask: No Airway Accessory: oral airway Final Airway Details Final airway type: endotracheal airway Final Endotracheal Airway: ETT Cuffed: yes Successful intubation technique: video laryngoscopy Devices used: Filtr8 Endotracheal tube insertion site: oral Blade size: #4 ETT size (mm): 8.5 Measured from: teeth Measurement (cm): 21 Placement verified by: bronchoscopy and capnometry Cormack-Lehane Classification: grade I - full view of glottis Number of attempts at approach: 1 Failed airway: no Airway not difficult SIGNATURE: Gilberto Reyes APRN.BRUSH PAINTER PATIENT NAME: Jatin Koch II DATE: November 20, 2024 TIME: 11:09 AM CSN: [id number] [facility] 11-20-2024 Telephone encounter Note Pt recently had PPM implanted 11/09/[address] Robert Veloz's office (patient's implanting EP doctor) to notify clinic about the RA lead's threshold is at 4.5V @ 0.4ms. Was able to speak to device clinic and faxed report over to [phone] [facility] 11-20-2024 Miscellaneous Notes Pt recently had PPM implanted 11/09/[address] Robert Veloz's office (patient's implanting EP doctor) to notify clinic about the RA lead's threshold is at 4.5V @ 0.4ms. 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 - (more content not included)... [facility] 11-20-2024 Telephone encounter Note Spoke to Patient, arrival time of 230pm on 11/23 and no special instructions [facility] 11-20-2024 Miscellaneous Notes Spoke to Patient, arrival time of 230pm on 11/23 and no special instructions Patient states he has already met with the pyridine operator and has upcoming follow up. Richardson Cantu RN PSS- I scheduled Lung Sim on 11/23/2024 at 3:00pm Nurse visit at 2:45pm for IV contrast Arrival time of 2:30pm, No special instructions. Thank you, Zaida Monsalve PSS/RT: please schedule SIM 11/23 treating lung with IV contrast, esophageal contrast, 4DCT Consent signed Needs nurse appt for IV start day of SIM Nurse ed today Partnership Manager consult(order pending signature) Thanks Richardson Cantu RN documented in this encounter [facility] 11-17-2024 Note HNO ID: [id number] Author: EZRA LIZAMA MD Service: ? Author Type: Physician Type: Progress Notes Filed: 12/11/2024 06:04 Note Text: Radiation Oncology - New Patient/Consult Note PATIENT NAME: Jatin Koch II PATIENT REQUESTING PHYSICIAN: Dr. Perez DIAGNOSIS: Locally advanced non-small cell lung cancer (squamous cell carcinoma arising from the right chest). PATIENT IDENTIFICATION: This patient was seen in the Department of Radiation Oncology at the [facility] with Ezra Lizama MD. He was accompanied today by his family. Final recommendations will be communicated back to the requesting physician by way of the shared medical record, or letter to requesting physician via [place] mail. HISTORY OF PRESENT ILLNESS: per note from Dr. Robertson on 11/15/2024: Gabriel Koch II is a 64 year old male with known right lung squamous cell carcinoma who is here to discuss next steps with the obstruction. Jatin presents with a chronic dry cough that began in June. Initially, he sought treatment at urgent care facilities and was evaluated for COVID-19 and influenza A and B, but the cough persisted. Due to the lack of improvement, his scheduled an appointment with a smoke inspector, who ordered a CT scan with contrast. During this period, Jatin's SpO2 dropped to 88%, prompting a visit to the ER, where a CT scan with contrast was performed. 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 A subsequent PET scan showed no metastasis. Jatin was also diagnosed with pneumonia beyond the mass and was prescribed levofloxacin. He has had one appointment with an oncologist and is scheduled to see both the oncologist and a radiation oncologist on Wednesday. In addition to his cancer diagnosis, Jatin recently had a pacemaker implanted on 11/09/24 due to complete heart block, which was an emergency procedure. He reports feeling 100% better since the pacemaker was placed. He denies any chest pain or pressure since the pacemaker implantation and has no history of stents or other cardiac interventions. He is able to ambulate without assistance and can climb a flight of stairs without difficulty. He sleeps flat with one pillow and denies any issues with laying flat. Jatin has a history of hypertension and arthritis affecting his hips and knees. He is not diabetic and has no known indications for anticoagulation. He recently discontinued meloxicam and cyclobenzaprine, which were prescribed for muscle spasms and pain in his back, hips, and knees. He is currently on a tapered dose of prednisone and is nearing the completion of a 14-day course of levofloxacin. He has a nebulizer at home but is no longer using an albuterol inhaler, as it was deemed ineffective due to the tumor. He has allergies to codeine and sulfa.' He is scheduled for a bronchoscopy next week on 11/20/2024 and is referred today to the radiation medicine clinic to have a discussion regarding the role of radiation therapy in the definitive treatment of his locally advanced lung cancer. INTERVAL HISTORY: The patient has noted increased cough and shortness of breath but denies any hemoptysis or chest pain or difficulty swallowing. He does note an approximate 30 pound weight loss since July. He also reports having been diagnosed with complete heart block requiring pacemaker. 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) 10/2024 PAST SURGICAL HISTORY: PAST SURGICAL HISTORY Procedure Laterality Date PACEMAKER REVISE MEDIAN N/CARPAL TUNNEL SURG Bilateral TRANSURETHRAL ELEC-SURG PROSTATECTOM FAMILY HISTORY: FAMILY HISTORY Problem Relation Age of Onset Melanoma Mother Arthritis Mother Heart disease Father COPD Sister SOCIAL HISTORY: Social History Tobacco Use Smoking status: Former Types: Cigarettes Start date: 2016 Passive exposure: Past Smokeless tobacco: Never Substance Use Topics Alcohol use: Not Currently Comment: rarely Drug use: Never RADIATION HISTORY: The patient denies any history of therapeutic radiation. ALLERGIES: ALLERGIES Allergen Reactions Sulfamethoxazole Other: See Comments, Unknown Urinary retention Sulfamethoxazole-Tr* Other: See Comments Codeine Other: See Comments sweats MEDICATIONS: Current Outpatient Medications: prochlorperazine (COMPAZINE) 10 mg tablet ondansetron (ZOFRAN) 8 mg tablet HERBAL DRUGS MISC OTC PRODUCT loratadine 10 mg dissolvable tablet albuterol HFA (PROVENTIL HFA, VENTOLIN HFA) 90 mcg/actuation inhaler dextromethorphan-guaiFENesin (MUCINEX DM) 30-600 mg per tablet meclizine (ANTIVERT) 25 mg (more content not included)... [facility] 11-17-2024 Note HNO ID: [id number] Author: RICHARDSON CANTU RN Service: ? Author Type: Registered Nurse Type: Progress Notes Filed: 11/17/2024 16:03 Note Text: Radiation Therapy - Patient Education Note PATIENT NAME: Jatin Koch II PATIENT November 17, 2024 [facility] FACILITY/LOCATION: [facility] READINESS TO LEARN Cognitive Ability: Alert and oriented Motivation to learn: Interested Family Support: High - Very involved in pt care Instruction provide to: Patient and Spouse Patient learns best by: Multiple Methods Factors effecting learning: None Physical limitations effecting learning: None LEARNING RESPONSE Diagnosis: Pt simulated today for radiation therapy to lung. Education Topic/Teaching Points: Radiation therapy, Side effects, and OTV: Method of instruction: Written instruction/Handouts Verbal instruction Patient /Family response: Patient and family verbalized understanding of radiation treatments, side effects, OTV, and transportation. Follow-up plan: Patient instructed to call with any further issues Recommend - Recommend continued instruction and follow up as directed Contact information given. Supplemental material: Informational handouts on Esophagitis/Mucositis, Fatigue, Hair loss, Skin changes, Salt and soda rinses, and radiation therapy to the chest, oral rehydration sheet, patient education binder. Referral (recommendation): None, Pt denied need for social work, van service, and pyridine operator. Patient has an Onbody or Implanted device: Yes, person notified was: Dr. Lizama and team Signed by: Richardson Cantu RN [facility] 11-17-2024 History of Presen t illness Narrative Radiation Therapy - Patient Education Note PATIENT NAME: Jatin Koch II PATIENT November 17, 2024 [facility] FACILITY/LOCATION: [facility] READINESS TO LEARN Cognitive Ability: Alert and oriented Motivation to learn: Interested Family Support: High - Very involved in pt care Instruction provide to: Patient and Spouse Patient learns best by: Multiple Methods Factors effecting learning: None Physical limitations effecting learning: None LEARNING RESPONSE Diagnosis: Pt simulated today for radiation therapy to lung. Education Topic/Teaching Points: Radiation therapy, Side effects, and OTV: Method of instruction: Written instruction/Handouts Verbal instruction Patient /Family response: Patient and family verbalized understanding of radiation treatments, side effects, OTV, and transportation. Follow-up plan: Patient instructed to call with any further issues Recommend - Recommend continued instruction and follow up as directed Contact information given. Supplemental material: Informational handouts on Esophagitis/Mucositis, Fatigue, Hair loss, Skin changes, Salt and soda rinses, and radiation therapy to the chest, oral rehydration sheet, patient education binder. Referral (recommendation): None, Pt denied need for social work, van service, and pyridine operator. Patient has an Onbody or Implanted device: Yes, person notified was: Dr. Lizama and team Signed by: Richardson Cantu RN documented in this encounter [facility] 11-17-2024 Telephone encounter Note Patient states he has already met with the pyridine operator and has upcoming follow up. Richardson Cantu RN [facility] 11-17-2024 Telephone encounter Note PSS- I scheduled Lung Sim on 11/23/2024 at 3:00pm Nurse visit at 2:45pm for IV contrast Arrival time of 2:30pm, No special instructions. Thank you, Zaida Monsalve [facility] Work Phone: 11-17-2024 Telephone encounter Note Images from the original note were not included. Will schedule once RTC date is deteremined for XRT. Radha Perdue [facility] 11-17-2024 Instructions Kvng Perez MD - 11/17/2024 2:41 PM EDT Chemo teach for weekly carbo taxol Schedule chemo in 2 weeks on or after the start day of radiation F/u in 2 weeks documented in this encounter [facility] 11-17-2024 Telephone encounter Note PSS/RT: please schedule SIM 11/23 treating lung with IV contrast, esophageal contrast, 4DCT Consent signed Needs nurse appt for IV start day of [facility] Nurse ed today Partnership Manager consult(order pending signature) Thanks Richardson Cantu RN [facility] 11-17-2024 History of Presen t illness Narrative Images from the original note were not included. PATIENT NAME: Jatin Koch II CLINIC NO.: [id number] ATTENDING PHYSICIAN: Kvng Perez MD DATE OF SERVICE: 11/17/[address] Chip Carbajal [address] [id number] thank you for referring Jatin Koch II for an opinion regarding Lung cancer. Some of the elements of this note have been copied from my previous progress note dated 10/27/24 . All the information has been reviewed carefully. CHIEF COMPLAINT: Lung cancer HPI: Jatin Koch II is a 63 year old year old male with PMH of HTN referred to us for lung cancer. CT chest : PET scan: C/o cough and lost 30lbs. Quit smoking in 2017. Smoked 1 pk/day for 40yrs. 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 C/o hemoptysis. C/o mild dysphagia. 11/17/24: - Recently had a pacemaker implanted on 11/09/24 due to complete heart block, which was an emergency procedure. He reports feeling 100% better since the pacemaker was placed. - Scheduled for bronchoscopy on 11/20/24. - Doing well. - Cough is better. Current Outpatient Medications Medication Sig levoFLOXacin (LEVAQUIN) 750 mg tablet Take 750 mg by mouth. meclizine (ANTIVERT) 25 mg tab Take 25 mg by mouth three times a day. fluticasone propionate (FLONASE NASAL) Use in the nose once daily. Acetaminophen 500 mg cap Take 500 mg by mouth once daily. Takes aout 6 a day diphenhydramine HCl (ALLERGY MEDICATION ORAL) Take by mouth once daily. MEN'S MULTI-VITAMIN ORAL Take by mouth once daily. Benzonatate 200 mg capsule cyclobenzaprine (FLEXERIL) 10 mg tablet Take 10 mg by mouth at bedtime as needed. meloxicam (MOBIC) 7.5 mg tablet Take 7.5 mg by mouth once daily. metoprolol succinate ER (TOPROL XL) 25 mg 24 hr tablet Take 25 mg by mouth. predniSONE (DELTASONE) 20 mg tablet No current facility-administered medications for this visit. 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 No night sweats. HEENT: Negative for headaches, No changes in hearing or vision, no nose bleeds or other nasal problems. RESPIRATORY: Positive for cough, and shortness of breath CARDIOVASCULAR: Negative for [...] of hands/feet. No weakness. PHYSICAL EXAMINATION: BP 100/67 Pulse 105 Temp 36.7 C (98 F) (Temporal) Resp 16 Ht 169.5 cm (5' 6.73 ) Wt 86.9 kg (191 lb 9.3 oz) SpO2 99% BMI 30.25 kg/m There were no vitals taken for this [...] BASOP , ABSBASO PATH: IMAGING: PET scan MRI brain (11/02/24). ASSESSMENT AND PLAN: Jatin Koch II is a 63 year old year old male referred to us for squamous cell lung cancer. PS 0 CT chest on 10/06/2024 showed a mass [...] to poorly differentiated squamous cell carcinoma - [id number]. Stage IIIB for now. - Not a surgical candidate given the mediastinal lymph node involvement and possible esophagus involvement on the CT scan. - Refer to radiation oncology. We will do concurrent chemoradiation therapy followed by maintenance durvalumab PLAN: 1. Malignant neoplasm of lower lobe of right lung (HCC) - ICD9: 162.5, ICD10: C34.31 - Doing well - MRI brain on 11/02/24 is negative for mets. - Had a pacemaker implanted on 11/09/24 due to complete heart block. - Scheduled for bronchoscopy on 11/20/24. - Seen by Rad onc today - We will start weekly carbo taxol with radiation. - All his questions answered in detail. - F/u in [address] Chip Carbajal [address] [place] [phone] thank you for allowing me to participate in Jatin Koch II care, if there are any questions or concerns please do not hesitate to contact me at the number below. I spent a total of 20 minutes on the date of the service which included preparing to see the patient, [id number] patient care, completing clinical documentation, obtaining and/or reviewing separately obtained history, performing a medically appropriate examination, counseling and educating the patient/family/caregiver, ordering medications, tests, or procedures, communicating with other HCPs (not separately reported), independently interpreting results (not separately reported), communicating results to the patient/family/caregiver, and care coordination (not separately reported). Kvng Perez MD. Hematology/Medical Oncology [address] [place] [address] [phone] CC: documented in this encounter [facility] 11-17-2024 Note HNO ID: [id number] Author: KVNG PEREZ MD Service: ? Author Type: Physician Type: Progress Notes Filed: 11/17/2024 15:17 Note Text: PATIENT NAME: Jatin Koch II CLINIC NO.: [id number] ATTENDING PHYSICIAN: Kvng Perez MD DATE OF SERVICE: 11/17/[address] Chip Carbajal [address] [place] [id number] thank you for referring Jatin Koch II for an opinion regarding Lung cancer. Some of the elements of this note have been copied from my previous progress note dated 10/27/24 . All the information has been reviewed carefully. CHIEF COMPLAINT: Lung cancer HPI: Jatin Koch II is a 63 year old year old male with PMH of HTN referred to us for lung cancer. CT chest : PET scan: C/o cough and lost 30lbs. Quit smoking in 2017. Smoked 1 pk/day for 40yrs. 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 C/o hemoptysis. C/o mild dysphagia. 11/17/24: - Recently had a pacemaker implanted on 11/09/24 due to complete heart block, which was an emergency procedure. He reports feeling 100% better since the pacemaker was placed. - Scheduled for bronchoscopy on 11/20/24. - Doing well. - Cough is better. Current Outpatient Medications Medication Sig levoFLOXacin (LEVAQUIN) 750 mg tablet Take 750 mg by mouth. meclizine (ANTIVERT) 25 mg tab Take 25 mg by mouth three times a day. fluticasone propionate (FLONASE NASAL) Use in the nose once daily. Acetaminophen 500 mg cap Take 500 mg by mouth once daily. Takes aout 6 a day diphenhydramine HCl (ALLERGY MEDICATION ORAL) Take by mouth once daily. MEN'S MULTI-VITAMIN ORAL Take by mouth once daily. Benzonatate 200 mg capsule cyclobenzaprine (FLEXERIL) 10 mg tablet Take 10 mg by mouth at bedtime as needed. meloxicam (MOBIC) 7.5 mg tablet Take 7.5 mg by mouth once daily. metoprolol succinate ER (TOPROL XL) 25 mg 24 hr tablet Take 25 mg by mouth. predniSONE (DELTASONE) 20 mg tablet No current facility-administered medications for this visit. 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 No night sweats. HEENT: Negative for headaches, No changes in hearing or vision, no nose bleeds or other nasal problems. RESPIRATORY: Positive for cough, and shortness of breath CARDIOVASCULAR: Negative for [...] of hands/feet. No weakness. PHYSICAL EXAMINATION: BP 100/67 Pulse 105 Temp 36.7 ?C (98 ?F) (Temporal) Resp 16 Ht 169.5 cm (5' 6.73 ) Wt 86.9 kg (191 lb 9.3 oz) SpO2 99% BMI 30.25 kg/m? There were no vitals taken for [...] TBILI , ALKPHOS , AST , ALT (more content not included)... [facility] 11-17-2024 Miscellaneous Notes [facility] cancer center called in asking if pt is PPM dependent. New PPM implanted 11/09/24. Planning radiation tx to his lung. No treatment plan yet. First device check scheduled 12/07/24. Not dependent at implant. Asked to call us back when radiation plans are known. documented in this encounter [employer] 11-17-2024 Telephone encounter Note [facility] cancer center called in asking if pt is PPM dependent. New PPM implanted 11/09/24. Planning radiation tx to his lung. No treatment plan yet. First device check scheduled 12/07/24. Not dependent at implant. Asked to call us back when radiation plans are known. [employer] 11-17-2024 Note HNO ID: [id number] Author: RICHARDSON CANTU RN Service: ? Author Type: Registered Nurse Type: Progress Notes Filed: 12/04/2024 23:40 Note Text: Pacemaker/Defibrillator?Yes Previous Cancer(s)? Basal cell carcinoma left forearm Previous Radiation?N Lupus/Scleroderma?N On body monitoring device? N Richardson Cantu RN [facility] 11-17-2024 Note Education (MAYITOA) JATIN KOCH ([id number]) 1960 M Date Time Provider Department 11/17/24 RICHARDSON CANTU Reason for Visit: Patient Education [91] During your visit today, we recorded the following information about you: Allergies As of Date: 11/17/2024 Noted Allergy Reaction SULFAMETHOXAZOLE 10/25/2024 14 - Other: See Comments 16 - Unknown Comments: Urinary retention SULFAMETHOXAZOLE-TRIMETHOPRIM 12/17/2016 14 - Other: See Comments CODEINE 10/25/2024 14 - Other: See Comments Comments: sweats Date Reviewed: 11/17/2024 Reviewed by: Naz Hooks MA - Fully Assessed Prescriptions as of 11/17/2024 - levoFLOXacin (LEVAQUIN) 750 mg tablet Take 750 mg by mouth. - meclizine (ANTIVERT) 25 mg tab Take 25 mg by mouth three times a day. - fluticasone propionate (FLONASE NASAL) Use in the nose once daily. - Acetaminophen 500 mg cap Take 500 mg by mouth once daily. Takes aout 6 a day - diphenhydramine HCl (ALLERGY MEDICATION ORAL) Take by mouth once daily. - MEN'S MULTI-VITAMIN ORAL Take by mouth once daily. - Benzonatate 200 mg capsule - cyclobenzaprine (FLEXERIL) 10 mg tablet Take 10 mg by mouth at bedtime as needed. - meloxicam (MOBIC) 7.5 mg tablet Take 7.5 mg by mouth once daily. - metoprolol succinate ER (TOPROL XL) 25 mg 24 hr tablet Take 25 mg by mouth. - predniSONE (DELTASONE) 20 mg tablet Encounter Status:Closed by RICHARDSON CANTU on 11/17/24 [facility] 11-15-2024 Instructions Regina Robertson MD - 11/15/2024 11:02 AM EDT For bronchoscopy procedure: Check in at 930 am on Wednesday. Location to check in on the day for bronchoscopy: [address] desk (go to main entrance with fountain/ the building with [employer], if you don't know where, please ask the red coat person in the oleary and they will help you) Please eat and drink nothing after midnight, once you go to bed and until procedure is done Please call [phone] for additional information prior to bronchoscopy if you have questions You will need someone to bring you to this procedure and stay for the entire duration of procedure as you cannot drive home after procedure documented in this encounter [facility] 11-15-2024 History of Presen t illness Narrative INTERVENTIONAL PULMONARY MEDICINE CONSULTATION PLEASE DO NOT REMOVE FROM THE CHART OR MODIFY PRINTED COPY Patient Name: Jatin Koch II PRIMARY CARE PHYSICIAN: Carlos Collins APRN.EMPLOYMENT COACH REFERRING PHYSICIAN: Dr. 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 My final recommendations/evaluation will be communicated back to the requesting physician by way of shared medical record or letter via US mail. Recording using [employer] software for draft documentation of the visit was discussed with the patient/authorized sales utility representative; all questions welcomed and answered. Patient/authorized sales utility representative agreed to proceed CHIEF COMPLAINT: Bronchial obstruction with tumor HISTORY OF PRESENT ILLNESS: Jatin Koch II is a 64 year old male with known right lung squamous cell carcinoma who is here to discuss next steps with the obstruction. Jatin presents with a chronic dry cough that began in June. Initially, he sought treatment at urgent care facilities and was evaluated for COVID-19 and influenza A and B, but the cough persisted. Due to the lack of improvement, his scheduled an appointment with a smoke inspector, who ordered a CT scan with contrast. During this period, Jatin's SpO2 dropped to 88%, prompting a visit to the ER, where a CT scan with contrast was performed. 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 A subsequent PET scan showed no metastasis. Jatin was also diagnosed with pneumonia beyond the mass and was prescribed levofloxacin. He has had one appointment with an oncologist and is scheduled to see both the oncologist and a radiation oncologist on Wednesday. In addition to his cancer diagnosis, Jatin recently had a pacemaker implanted on 11/09/24 due to complete heart block, which was an emergency procedure. He reports feeling 100% better since the pacemaker was placed. He denies any chest pain or pressure since the pacemaker implantation and has no history of stents or other cardiac interventions. He is able to ambulate without assistance and can climb a flight of stairs without difficulty. He sleeps flat with one pillow and denies any issues with laying flat. Jatin has a history of hypertension and arthritis affecting his hips and knees. He is not diabetic and has no known indications for anticoagulation. He recently discontinued meloxicam and cyclobenzaprine, which were prescribed for muscle spasms and pain in his back, hips, and knees. He is currently on a tapered dose of prednisone and is nearing the completion of a 14-day course of levofloxacin. He has a nebulizer at home but is no longer using an albuterol inhaler, as it was deemed ineffective due to the tumor. He has allergies to codeine and sulfa. PAST MEDICAL HISTORY Diagnosis Date Arthritis History [...] Alcohol use: Not Currently Drug use: Never ALLERGIES: ALLERGIES Allergen Reactions Sulfamethoxazole Other: See Comments, Unknown Sulfamethoxazole-Tr* Other: See Comments Codeine Other: See Comments CURRENT OUTPATIENT MEDICATIONS: levoFLOXacin (LEVAQUIN) 750 mg tablet Take 750 mg by mouth. meclizine (ANTIVERT) 25 mg tab Take 25 mg by mouth three times a day. fluticasone propionate (FLONASE NASAL) Use in the nose once daily. Acetaminophen 500 mg cap Take 500 mg by mouth once daily. Takes aout 6 a day diphenhydramine HCl (ALLERGY MEDICATION ORAL) Take by mouth once daily. MEN'S MULTI-VITAMIN ORAL Take by mouth once daily. Benzonatate 200 mg capsule cyclobenzaprine (FLEXERIL) 10 mg tablet Take 10 mg by mouth at bedtime as needed. meloxicam (MOBIC) 7.5 mg tablet Take 7.5 mg by mouth once daily. metoprolol succinate ER (TOPROL XL) 25 mg 24 hr tablet Take 25 mg by mouth. predniSONE (DELTASONE) 20 mg tablet REVIEW OF SYSTEMS Per HPI. The remainder of the ROS was negative. PHYSICAL EXAMINATION: VITAL SIGNS: BP 111/66 Pulse 85 Temp (Src) 97.2 (Temporal) Resp 20 Wt 193 lb 5.5 oz (87.7kg) SpO2 98% General appearance: well appearing, alert, and in no acute distress Skin: skin color, texture, turgor normal, no rashes or lesions Head: normal Eyes: Not icteric ENT: Moist mucous membranes Neck: Supple Lungs: lungs clear to auscultation no wheezing or rhonchi Heart: RRR without murmur, gallop, or rubs. Abdomen: Not examined Extremities: Extremities normal. No obvious deformities, edema, or skin discoloration Neuro: Gait normal. LAST LAB RESULTS: Lab results were reviewed. IMAGING: Reviewed. IMPRESSIONS: # Bronchus intermedius obstruction by tumor # Known stage 3B squamous cell carcinoma # Complete heart block with pacemaker placed 11/09/24 # Hypertension RECOMMENDATION/PLAN: Imaging reviewed. Patient had a picture of the tumor that he shared with me. I discussed that it is often difficult to know the extent of tumor distal to the obvious endobronchial tumor, it can always be more tumor but perceived as pneumonia, or true mucus plugging due to proximal obstruction. I am glad that patient is overall doing quite ok except for the dry cough. No significant dyspnea and he continues to tolerate ADLs. I discussed that the procedure will be done via general anesthesia, we first perform airway inspection and I'll try my best to get distal to the obvious obstruction to see distal airways. If mucus plugging, will send for washing culture. And then come back and manage this therapeutically. However, if it was full of tumor, there won't be much for us to offer. I also discussed potential use of rigid (no obvious contraindication) and also cautious use of APC due to presence of pacemaker for complete heart block. If should a stent is needed after intervention, we will place one, and he will proceed with treatment, and depending on what the follow up scan shows, usually we will be able to remove the stent if the tumor shows response to treatment. Additional tumor will be sent to the pathology lab, so that if any molecular analysis is needed, there will be specimen. Risks and benefits for bronchoscopy includes but not limited to sore throat, chipped tooth/ gum injury, cough, cough with specks of blood or mucus with blood, infection, adverse reaction to anesthesia, fever and chills, rarely, stroke, seizures, myocardial infarction, arrhthymias or . There are no obvious contraindications to anesthesia. We discussed necessity of other members of the healthcare team participating in the procedure. Patient's referring physician will also be copied to receive the results so they can communicate with patient with plan. Patient agrees to proceed. Consent signed electronically in clinic today. Our scheduling team will reach out to provide specific bronchoscopy date and instructions at next mutually convenient time. Bronchoscopy plan: LMA to start, inspect, probable rigid for therapeutic We will also have the pacemaker device nurse called before the procedure. Patient has been advised to be NPO after midnight and to have a family/ friend with them as their driver/refuse collector post anesthesia. All questions were answered to the best of my ability. Written and verbal health teaching given to patient, patient verbalizes understanding and agrees with treatment plan. Electronically Signed: Regina Robertson MD November 15, 2024 12:06 PM documented in this encounter [facility] 11-15-2024 Note HNO ID: [id number] Author: REGINA ROBERTSON MD Service: ? Author Type: Physician Type: Progress Notes Filed: 11/15/2024 12:09 Note Text: INTERVENTIONAL PULMONARY MEDICINE CONSULTATION PLEASE DO NOT REMOVE FROM THE CHART OR MODIFY PRINTED COPY Patient Name: Jatin Koch II PRIMARY CARE PHYSICIAN: Carlos Collins APRN.EMPLOYMENT COACH REFERRING PHYSICIAN: Dr. 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 My final recommendations/evaluation will be communicated back to the requesting physician by way of shared medical record or letter via US mail. Recording using [employer] software for draft documentation of the visit was discussed with the patient/authorized sales utility representative; all questions welcomed and answered. Patient/authorized sales utility representative agreed to proceed CHIEF COMPLAINT: Bronchial obstruction with tumor HISTORY OF PRESENT ILLNESS: Jatin Koch II is a 64 year old male with known right lung squamous cell carcinoma who is here to discuss next steps with the obstruction. Jatin presents with a chronic dry cough that began in June. Initially, he sought treatment at urgent care facilities and was evaluated for COVID-19 and influenza A and B, but the cough persisted. Due to the lack of improvement, his scheduled an appointment with a smoke inspector, who ordered a CT scan with contrast. During this period, Jatin's SpO2 dropped to 88%, prompting a visit to the ER, where a CT scan with contrast was performed. 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 A subsequent PET scan showed no metastasis. Jatin was also diagnosed with pneumonia beyond the mass and was prescribed levofloxacin. He has had one appointment with an oncologist and is scheduled to see both the oncologist and a radiation oncologist on Wednesday. In addition to his cancer diagnosis, Jatin recently had a pacemaker implanted on 11/09/24 due to complete heart block, which was an emergency procedure. He reports feeling 100% better since the pacemaker was placed. He denies any chest pain or pressure since the pacemaker implantation and has no history of stents or other cardiac interventions. He is able to ambulate without assistance and can climb a flight of stairs without difficulty. He sleeps flat with one pillow and denies any issues with laying flat. Jatin has a history of hypertension and arthritis affecting his hips and knees. He is not diabetic and has no known indications for anticoagulation. He recently discontinued meloxicam and cyclobenzaprine, which were prescribed for muscle spasms and pain in his back, hips, and knees. He is currently on a tapered dose of prednisone and is nearing the completion of a 14-day course of levofloxacin. He has a nebulizer at home but is no longer using an albuterol inhaler, as it was deemed ineffective due to the tumor. He has allergies to codeine and sulfa. PAST MEDICAL HISTORY Diagnosis Date Arthritis History [...] Alcohol use: Not Currently Drug use: Never ALLERGIES: ALLERGIES Allergen Reactions Sulfamethoxazole Other: See Comments, Unknown Sulfamethoxazole-Tr* Other: See Comments Codeine Other: See Comments CURRENT OUTPATIENT MEDICATIONS: levoFLOXacin (LEVAQUIN) 750 mg tablet Take 750 mg by mouth. meclizine (ANTIVERT) 25 mg tab Take 25 mg by mouth three times a day. fluticasone propionate (FLONASE NASAL) Use in the nose once daily. Acetaminophen 500 mg cap Take 500 mg by mouth once daily. Takes aout 6 a day diphenhydramine HCl (ALLERGY MEDICATION ORAL) Take by mouth once daily. MEN'S MULTI-VITAMIN ORAL Take by mouth once daily. Benzonatate 200 mg capsule cyclobenzaprine (FLEXERIL) 10 mg tablet Take 10 mg by mouth at bedtime as needed. meloxicam (MOBIC) 7.5 mg tablet Take 7.5 mg by mouth once daily. metoprolol succinate ER (TOPROL XL) 25 mg 24 hr tablet Take 25 mg by mouth. predniSONE (DELTASONE) 20 mg tablet REVIEW OF SYSTEMS Per HPI. The remainder of the ROS was negative. PHYSICAL EXAMINATION: VITAL SIGNS: BP 111/66 Pulse 85 Temp (Src) 97.2 (Temporal) Resp 20 Wt 193 lb 5.5 oz (87.7kg) SpO (more content not included)... [facility] 11-08-2024 History of Presen t illness Narrative Jatin Koch II Date of visit: 11/08/2024 Date of [...] 6 (six) hours as needed for pain. (Patient not taking: Reported on 11/08/2024) PEPSIN/BLESSING/OXBILE/PANCREAT/BET (UAEWNL-RYT-NS FJUC-LVF-AXR-PAP ORAL) Take by mouth. 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 With involvement of the lymph node, history of diverticulitis, Patient was seen at [facility] following syncope hardware with about 40 [...] need for pacemaker on also scheduled for bronchoscopy planned for surgery no recent nuclear stress test or echo EKG shows right bundle branch block last 2D echo was December 2016 which was normal LV function with mild aortic stenosis Past Medical History: Diagnosis Date Arthritis Hypertension Lung cancer ([facility]) No data recorded No data recorded No [...] kg (209 lb) SpO2 95% BMI 31.78 kg/m Orders Placed or Reconciled This Encounter Medications [...] the emergency room to be transferred to [facility] for pacemaker evaluation to suggest 2D echo and nuclear stress test Follow-up with me in 6 months if needed TODAYS ORDERS Orders Placed This Encounter Procedures POCT EKG FOLLOW UP Return in about 6 months (around 05/11/2025). PCP: CARLOS COLLINS, VINAY-EMPLOYMENT COACH Referring Physician: Alina Ragland MD [address] [place] [id number] documented in this encounter [facility] 11-08-2024 Telephone encounter Note FMLA paperwork signed and original left at front desk worker for Eloy to strip picker on Wednesday. Original placed in scanning. Mamie Zepeda MA [facility] 11-08-2024 Miscellaneous Notes FMLA paperwork signed and original left at front desk worker for Eloy to strip picker on Wednesday. Original placed in scanning. Mamie Zepeda MA FMLA paperwork completed for family member has been completed and placed in folder to be signed. Naz Hooks MA documented in this encounter [facility] 11-07-2024 Miscellaneous Notes Pt was in ER at [facility] twice over the weekend. First pt diagnosed with vertigo and sent home on Meclizine. Pt became bradycardic and was then admitted to [facility] with bradycardia and pneumonia. Pt discharged home on Levaquin, taper prednisone and continues meclizine as needed. He is on a holter monitor and sees [facility] cardiology tomorrow. Pt scheduled for AV/RYAN WednesdayNovember 10. just wanted providers updated. Reyna: please obtain records AV/RYAN: BREANNA Marie RN documented in this encounter [facility] 11-07-2024 Telephone encounter Note Pt was in ER at [facility] twice over the weekend. First pt diagnosed with vertigo and sent home on Meclizine. Pt became bradycardic and was then admitted to [facility] with bradycardia and pneumonia. Pt discharged home on Levaquin, taper prednisone and continues meclizine as needed. He is on a holter monitor and sees [facility] cardiology tomorrow. Pt scheduled for AV/RYAN WednesdayNovember 10. just wanted providers updated. Reyna: please obtain records AV/RYAN: BREANNA Marie RN [facility] 11-07-2024 Telephone encounter Note [facility] paperwork completed for family member has been completed and placed in folder to be signed. Naz Hooks MA [facility] 11-07-2024 Miscellaneous Notes Called patient to remind them to bring their most current copy of their medication list with them to their appt. Patient verbalizes understanding. documented in this encounter [facility] 11-07-2024 Telephone encounter Note Called patient to remind them to bring their most current copy of their medication list with them to their appt. Patient verbalizes understanding. [facility] 10-31-2024 Note HNO ID: [id number] Author: NANCY FERRER RN Service: ? Author Type: Physician Type: [...] protocol etc.) none Additional notes to the twisting press operator: OSH Bronchoscopy showed an mass obstructing BI, patient requested IP evaluation. SqCell Carcinoma. T4N2M0 IIIB for now, starting chemorads Consultation request/referral by: Referring Physician: Dr. Kvng Perez Address: [facility] [place] Phone #: [phone] Fax #: [phone] Reviewed by: MD Maryuri Aguilar MD October 31, 2024 4:33 PM Addendum: CBC with diff: No results found for this basename: WBC,RBC,HB,HCT,MCV,MCH,MCHC,RDWC V,PLT,MPV,NEUTP,LYMPHP,MONOP,EOD INP,BASOP,ABSNEU T,ABSLYM,ABSMONO,ABSEOSIN,ABSBAS O No results found for: K No results found for: NA No results found for: BUN No results found for: CREAT [facility] 10-30-2024 Note HNO ID: [id number] Author: JESUSITA PABON RD Service: ? Author Type: Registered Dietitian Type: Progress Notes Filed: 2024 14:55 Note Text: [facility] Nutrition Therapy: Virtual Consult - Initial Assessment I have communicated my name and active licensure. The patient?s identity and physical location were verified at the time of this visit. Either the patient or their legal sales utility representative has been informed of the risks [...] Type: Telephone encounter - no billing SIGNATURE: Jesusita Pabon RD PATIENT NAME: Jatin Tubbs August ANSARI DATE: October 30, 2024 TIME: 2:39 PM PAGER: [facility] 10-30-2024 Note Education (NUTRMA) JATIN KOCH ([id number]) 1960 M Date Time Provider Department 10/30/24 2:30 PM JESUSITA PABON Reason for Visit: Nutrition Telephone [2013] Visit Diagnosis:Malignant neoplasm of lower lobe of right lung (HCC) [C34.31] Order(s):CONSULT TO ONCOLOGY NUTRITION [[id number]] Order #: [id number]: 1 During your visit today, we recorded the following information about you: Allergies As of Date: 10/30/2024 Noted Allergy Reaction SULFAMETHOXAZOLE 10/25/2024 14 - Other: See Comments 16 - Unknown SULFAMETHOXAZOLE-TRIMETHOPRIM 12/17/2016 14 - Other: See Comments CODEINE 10/25/2024 14 - Other: See Comments Date Reviewed: 10/27/2024 Reviewed by: Mamie Zepeda MA - Fully Assessed Prescriptions as of [...] 0.4 mg by mouth. Encounter Status:Closed by JESUSITA PABON on 11/02/24 [facility] 10-27-2024 Telephone encounter Note Referring Physician: Dr. Kvng Perez Address: [place] Phone #: [phone] Fax #: [phone] Reason for referral: Malignant neoplasm of lower lobe of right lung Is there CareEverywhere Records: Yes Is there Imaging available: Yes - Recent CT: Yes - Date of CT: 10/18/2024 [facility] 10-27-2024 Miscellaneous Notes Referring Physician: Dr. Kvng Perez Address: [facility] [place] Phone #: [phone] Fax #: [phone] Reason for referral: Malignant neoplasm of lower lobe of right lung Is there CareEverywhere Records: Yes Is there Imaging available: Yes - Recent CT: Yes - Date of CT: 10/18/2024 documented in this encounter [facility] 10-27-2024 Note Addended by: KVNG SEGUNDO on: 10/27/2024 09:57 AM Modules accepted: Orders [facility] 10-27-2024 Miscellaneous Notes Addended by: KVNG PEREZ on: 10/27/2024 09:57 AM Modules accepted: Orders documented in this encounter [facility] 10-27-2024 Instructions Kvng Perez MD - 10/27/2024 9:26 AM EDT Refer to radiation oncology Refer to interventional pulmonology Ordered MRI brain F/u in 2 weeks documented in this encounter [facility] 10-27-2024 History of Presen t illness Narrative Images from the original note were not included. PATIENT NAME: Jatin Koch II CLINIC NO.: [id number] ATTENDING PHYSICIAN: Kvng Perez MD DATE OF SERVICE: October 27, [address] Chip Carbajal [address] [place] [phone] thank you for referring Jatin Koch II for an opinion regarding Lung cancer. CHIEF COMPLAINT: Lung cancer HPI: Jatin Koch II is a 63 year old year old male with PMH of HTN referred to us for lung cancer. CT chest : PET scan: C/o cough and lost 30lbs. Quit smoking in 2017. Smoked 1 pk/day for 40yrs. 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 C/o hemoptysis. C/o [...] EXAMINATION: BP 100/64 Pulse 95 Temp 36.5 C (97.7 F) (Temporal) Resp 16 Ht 169.5 cm (5' 6.73 ) Wt 86.7 kg (191 lb 2.2 oz) SpO2 96% BMI 30.18 kg/m There were no vitals taken for this [...] PATH: IMAGING: PET scan ASSESSMENT AND PLAN: Jatin Koch II is a 63 year old year [...] [address] Chip Carbajal [address] [id number] thank you for allowing me to participate in Jatin Koch II care, if there are any questions or concerns please do not hesitate to contact me at the number below. I spent a total of 60 minutes on the date of the service which included preparing to see the patient, skjx-zh-dhud patient care, completing clinical documentation, obtaining and/or reviewing separately obtained history, performing a medically appropriate examination, counseling and educating the patient/family/caregiver, ordering medications, tests, or procedures, communicating with other HCPs (not separately reported), independently interpreting results (not separately reported), communicating results to the patient/family/caregiver, and care coordination (not separately reported). Kvng Perez MD. Hematology/Medical Oncology [facility] [phone] CC: Ravi has an irritating cough but has not coughed up blood since Wednesday, Low grade started Wednesday 102.2 chills on Wednesday (he does not take temp). He has been taking Tylenol to help minimize temps. Mamie Zepeda MA documented in this encounter [facility] 10-27-2024 Note HNO ID: [id number] Author: KVNG PEREZ MD Service: ? Author Type: Physician Type: Progress Notes Filed: 10/27/2024 09:56 Note Text: PATIENT NAME: Jatin Koch II CLINIC NO.: [id number] ATTENDING PHYSICIAN: Kvng Perez MD DATE OF SERVICE: October 27, [address] Chip Carbajal [address] [facility] [id number] thank you for referring Jatin Koch II for an opinion regarding Lung cancer. CHIEF COMPLAINT: Lung cancer HPI: Jatin Koch II is a 63 year old year old male with PMH of HTN referred to us for lung cancer. CT chest : PET scan: C/o cough and lost 30lbs. Quit smoking in 2017. Smoked 1 pk/day for 40yrs. 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 C/o hemoptysis. C/o [...] Negative SLR test Lungs clear to auscultation, N (more content not included)... [facility] 10-27-2024 Note HNO ID: [id number] Author: MAMIE ZEPEDA MA Service: ? Author Type: Guideman Type: Progress Notes Filed: 10/27/2024 09:56 Note Text: Ravi has an irritating cough but has not coughed up blood since Wednesday, Low grade started Wednesday 102.2 chills on Wednesday (he does not take temp). He has been taking Tylenol to help minimize temps. Mamie Zepeda MA [facility] 06-29-2023 Evaluation + Plan note Diagnostic Tests PendingPSA Screen, Total 06/29/[address] [facility] 06-29-2023 Hospital Discharg e instructions Patient Education 06/29/2023 09:10:43 Kidney Stones, Tdaf-fw-Vdhx Kidney Stones Kidney stones are rock-like masses [...] Follow these instructions at home: Medicines Take xwzj-umn-xpmneof and prescription medicines only as told by [...] Kidney Foundation (NKF): www.kidney.org [facility] (UCF): www.urologyhealth.org Contact a doctor if: You have [...] provider. Document Revised: 02/02/2022 Document Reviewed: 02/02/2022 [employer] Patient Education 2022 Sn[employer] shuttle. Follow Up Care 06/23/2022 09:07:35 With:SANDRA PALMA, VICTORIA Flores, URL Address: [address] [address] [phone] When: Unknown Comments:1.5 yr w/ PSA, KUB, and DAWIT [facility] Evaluation note No assessment inform ation available [facility] Work Phone: Evaluation note Diagnosis Malignant neoplasm of lower lobe of right lung (HCC)- Primary [facility] Diagnosis Syncope, unspecified syncope type- Primary [facility] Diagnosis 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)- Primary Bronchial obstruction Other diseases of trachea and bronchus Bronchiolar disease Other diseases of trachea and bronchus [facility] Diagnosis Malignant neoplasm of lower lobe of right lung (HCC)- Primary Bronchiolar disease Other diseases of trachea and bronchus [facility]* Diagnosis AV block- Primary Unspecified atrioventricular block Squamous cell carcinoma of lung, unspecified laterality (CMS-HCC) Pacemaker Cardiac pacemaker in situ [facility] Pac[facility]- [place]- Primary Cardiac pacemaker in situ [facility] Diagnosis Pneumonia of right lower lobe due to methicillin resistant Staphylococcus aureus (MRSA) (HCC)- Primary documented in this encounter [facility] note* Diagnosis Malignant neoplasm of lower lobe of right lung (HCC)- Primary documented in this encounter [facility] note* Diagnosis Malignant neoplasm of lower lobe of right lung (HCC)- Primary documented in this encounter [facility] note* Diagnosis Malignant neoplasm of lower lobe of right lung (HCC)- Primary documented in this encounter [facility] note* Diagnosis Malignant neoplasm of lower lobe of right lung (HCC)- Primary documented in this encounter [facility] note* Diagnosis Malignant neoplasm of lower lobe of right lung (HCC) documented in this encounter [facility] note* Diagnosis Pacemaker- Primary Cardiac pacemaker in situ AV block Unspecified atrioventricular block Squamous cell carcinoma of lung, unspecified laterality (CMS-HCC) [facility]* Diagnosis Pacemaker- Primary Cardiac pacemaker in situ [facility]* Diagnosis Malignant neoplasm of lower lobe of right lung (HCC)- Primary documented in this encounter [facility] course Narrative No data available for this section [facility] InstructionsNot on filedocumented in this encounter [facility] filed[facility]ed in [facility] filedocumented in this encounter [facility] on filedocumented in this encounter [facility] on filedocumented in this encounter [facility] on filedocumented in this encounter [facility] on filedocumented in this encounter [facility] No data available for this section 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] Procedures [facility] INCL FLUOR GDNCE DX W/CELL WASHG SPX BRONCHOSCOPY FLEXIBLE ADULT Admitting [address] [id number] Referral ID Status Reason Start Date Expiration Date Visits Re quested Visits Authorized [id number] 1 [facility] Summary Purpose Family History Relationship Condition Age at Onset Recorded Date/T ryann sister Kidney disorder Unknown father Hypertension Unknown mother Arthritis Unknown Advance Directives Advance Directive Response Recorded Date/ Time Advance Directives No April 3:00pm Date Activated Date Inactivated Comments 11/09/2024 1:06 AM 11/09/2024 8:22 PM Date Activated Date Inactivated Comments 11/09/2024 1:06 AM 11/09/2024 8:22 PM Chief Complaint and Reason for Visit Chief Complaint Admit Date consistent cough (2 months) August 31, 2024 9:38am Chief Complaint Admit Date consistent cough (2 months) August 31, 2024 9:38am R05.3 August 31, 2024 10: 00am Chief Complaint Admit Date consistent cough (2 months) August 31, 2024 9:38am R05.3 August 31, 2024 10: 00am Wheezing, Shortness of breath, cough [facility] 2024 11:24am Chief Complaint Admit Date consistent cough (2 months) August 31, 2024 9:38am R05.3 August 31, 2024 10: 00am Wheezing, Shortness of breath, cough [facility] 2024 11:24am Unknown October 16, 2024 8:00am Additional Source Comments (unrecognized sect ion and content) No Status Records FoundNo Status Records FoundNo Status Records FoundNo Status Records FoundNo Status Records FoundNo Status Records FoundNo Status Records Found INFORMATION SOURCE (unrecogn ized section and content) DATE CREATED AUTHOR 11/20/2022 [facility] DATE CREATED AUTHOR AUTHOR'S ORGANIZ ATION 10/26/2024 [facility] DATE CREATED AUTHOR AUTHOR'S ORGANIZ ATION 11/16/2024 [facility] DATE CREATED AUTHOR AUTHOR'S ORGANIZ ATION 11/23/2024 [facility] DATE CREATED AUTHOR AUTHOR'S ORGANIZ ATION 12/08/2024 [facility] DATE CREATED AUTHOR AUTHOR'S ORGANIZ ATION 12/13/2024 [facility] DATE CREATED AUTHOR AUTHOR'S ORGANIZ ATION 12/13/2024 Sadiq Parks [facility] Patient Care team informatio n (unrecognized section and content) Team Status: Active Member Role Status Dates Alina Ragland MD Primary Care Provider Active Team Status: Active Member Role Status Dates Alina Ragland MD Primary Care Provider Active Start: July 13, 2024 Mega Mckeon DO Attending Provider Active Sta rt: July 13, 2024 Team Status: Inactive Member Role Status Dates Alina Ragland MD Primary Care Provider Active Start: August 31, 2024 End: August 31, 2024 Tonja De Oliveira APRN Attending Provider Active Start: August 31, 2024 End: August 31, 2024 Team Status: Active Member Role Status Dates Alina Ragland MD Primary Care Provider Active Start: August 31, 2024 Tonja De Oliveira APRN Attending Provider Active Start: August 31, 2024 Team Status: Inactive Member Role Status Dates Alina Ragland MD Primary Care Provider Active Start: September 08, 2024 End: September 08, 2024 Tonja De Oliveira APRN Attending Provider Active Start: September 08, 2024 End: September 08, 2024 Team Status: Inactive Member Role Status Dates Chip Carbajal DO Attending Provider Active St art: October 16, 2024 End: October 16, 2024 Food And Beverage Analyst Relationship Specialty Start Date End Date Doug Bowles PCP - General 02/23/06 Food And Beverage Analyst Relationship Specialty Start Date End Date Carlos Collins APRN.CNP [address] [place] [id number] PCP - General Nurse Practitioner 10/27/24 Food And Beverage Analyst Relationship Specialty Start Date End Date Alina Ragland MD [address] [place] [phone] PCP - General Family Medicine 09/30/20 Food And Beverage Analyst Relationship Specialty Start Date End Date Carlos Collins, HEALTH NURSE.EMPLOYMENT COACH [address] [place] [id number] PCP - General Nurse Practitioner 10/27/24 Food And Beverage Analyst Relationship Specialty Start Date End Date Carlos Collins, HEALTH NURSE.EMPLOYMENT COACH [address] [place] [phone] PCP - General Nurse Practitioner 10/27/24 Food And Beverage Analyst Relationship Specialty Start Date End Date DennisCarlos mascorro, HEALTH NURSE-EMPLOYMENT COACH [address] [place] [id number] PCP - General Nurse Practitioner 11/08/24 Food And Beverage Analyst Relationship Specialty Start Date End Date DennisCarlos mascorro L, HEALTH NURSE-EMPLOYMENT COACH [address] [place] [id number] PCP - General Nurse Practitioner 11/08/24 Food And Beverage Analyst Relationship Specialty Start Date End Date DennisCarlos mascorro, HEALTH NURSE.EMPLOYMENT COACH [address] [place] [phone] PCP - General Nurse Practitioner 10/27/24 Food And Beverage Analyst Relationship Specialty Start Date End Date DennisCarlos mascorro L, HEALTH NURSE-EMPLOYMENT COACH [address] [place] [address], [place] [address] PCP - General Nurse Practitioner 11/08/24 Food And Beverage Analyst Relationship Specialty Start Date End Date DennisCarlos mascorro L, HEALTH NURSE.EMPLOYMENT COACH [address] [place] [id number] PCP - General Nurse Practitioner 10/27/24 Food And Beverage Analyst Relationship Specialty Start Date End Date Dennis, Carlos L, HEALTH NURSE.EMPLOYMENT COACH [address] [place] [phone] PCP - General Nurse Practitioner 10/27/24 Food And Beverage Analyst Relationship Specialty Start Date End Date Dennis, Carlos L, HEALTH NURSE.EMPLOYMENT COACH [address] [place] [phone] PCP - General Nurse Practitioner 10/27/24 Food And Beverage Analyst Relationship Specialty Start Date End Date Dennis, Carlos L, HEALTH NURSE.EMPLOYMENT COACH [address] [place] [phone] PCP - General Nurse Practitioner 10/27/24 Food And Beverage Analyst Relationship Specialty Start Date End Date Dennis, Carlos L, HEALTH NURSE-EMPLOYMENT COACH [address] [place] [phone] PCP - General Nurse Practitioner 11/08/24 Food And Beverage Analyst Relationship Specialty Start Date End Date Dennis, Carlos L, HEALTH NURSE-EMPLOYMENT COACH [address] [place] [id number] PCP - General Nurse Practitioner 11/08/24 Food And Beverage Analyst Relationship Specialty Start Date End Date Dennis, Carlos L, HEALTH NURSE.EMPLOYMENT COACH [address] [place] [phone] PCP - General Nurse Practitioner 10/27/24 Food And Beverage Analyst Relationship Specialty Start Date End Date Dennis, Acrlos L, HEALTH NURSE.EMPLOYMENT COACH [address] [place] [phone] PCP - General Nurse Practitioner 10/27/24 Food And Beverage Analyst Relationship Specialty Start Date End Date Dennis, Carlos L, HEALTH NURSE.EMPLOYMENT COACH [address] [place] [phone] PCP - General Nurse Practitioner 10/27/24 Food And Beverage Analyst Relationship Specialty Start Date End Date Dennis, Carlos L, HEALTH NURSE.EMPLOYMENT COACH [address] [place] [phone] PCP - General Nurse Practitioner 10/27/24 Food And Beverage Analyst Relationship Specialty Start Date End Date Dennis, Carlos L, HEALTH NURSE.EMPLOYMENT COACH [address] [place] [address], [place] [address] PCP - General Nurse Practitioner 10/27/24 Food And Beverage Analyst Relationship Specialty Start Date End Date Dennis, Carlos L, HEALTH NURSE.EMPLOYMENT COACH [address] [place] [phone] PCP - General Nurse Practitioner 10/27/24 Food And Beverage Analyst Relationship Specialty Start Date End Date Dennis, Carlos L, HEALTH NURSE.EMPLOYMENT COACH [address] [place] [phone] PCP - General Nurse Practitioner 10/27/24 Food And Beverage Analyst Relationship Specialty Start Date End Date Dennis, Carlos L, HEALTH NURSE.EMPLOYMENT COACH [address] [place] [phone] PCP - General Nurse Practitioner 10/27/24 Tiffanie Hargrove RN [address] [facility] [place] [address] Specialty Boat Hoist Operator Helper Hematology/Oncology 11/29/24 Kvng Perez MD [address] [facility] [place] [address] Physician Hematology/Oncology 11/29/24 Food And Beverage Analyst Relationship Specialty Start Date End Date Dennis, Carlos L, HEALTH NURSE.EMPLOYMENT COACH [address] [place] [phone] PCP - General Nurse Practitioner 10/27/24 Food And Beverage Analyst Relationship Specialty Start Date End Date DennisCarlos mascorro L, HEALTH NURSE-EMPLOYMENT COACH [address] [place] [phone] PCP - General Nurse Practitioner 11/08/24 Food And Beverage Analyst Relationship Specialty Start Date End Date DennisCarlos mascorro L, HEALTH NURSE-EMPLOYMENT COACH [address] [place] [phone] PCP - General Nurse Practitioner 11/08/24 Food And Beverage Analyst Relationship Specialty Start Date End Date DennisCarlos mascorro L, HEALTH NURSE.EMPLOYMENT COACH [address] [place] [phone] PCP - General Nurse Practitioner 10/27/24 Tiffanie Hargrove RN [address] [facility] [place] [address] Specialty Boat Hoist Operator Helper Hematology/Oncology 11/29/24 Kvng Perez MD [address] [facility] [place] [address] Physician Hematology/Oncology 11/29/24 Food And Beverage Analyst Relationship Specialty Start Date End Date DennisCarlos mascorro L, HEALTH NURSE.EMPLOYMENT COACH [address] [place] [phone] PCP - General Nurse Practitioner 10/27/24 Tiffanie Hargrove, RN [address] [facility] [address] Specialty Boat Hoist Operator Helper Hematology/Oncology 11/29/24 Kvng Perez MD [address] [facility] [place] [address] Physician Hematology/Oncology 11/29/24 Food And Beverage Analyst Relationship Specialty Start Date End Date Carlos Collins, HEALTH NURSE.EMPLOYMENT COACH [facility] [place] [address] PCP - General Nurse Practitioner 10/27/24 Tiffanie Hargrove, PRITI [address] [place] [address] Specialty Boat Hoist Operator Helper Hematology/Oncology 11/29/24 Kvng Perez MD [address] [place] [address] Physician Hematology/Oncology 11/29/24 Food And Beverage Analyst Relationship Specialty Start Date End Date Carlos Collins, HEALTH NURSE.EMPLOYMENT COACH [address] [place] [address]138 PCP - General Nurse Practitioner 10/27/24 Tiffanie Hargrove RN [address] [place] [address] Specialty Boat Hoist Operator Helper Hematology/Oncology 11/29/24 Kvng Perez MD [address] [place] [address] Physician Hematology/Oncology 11/29/24 Food And Beverage Analyst Relationship Specialty Start Date End Date Carlos Collins, HEALTH NURSE.EMPLOYMENT COACH [address] [place] [address] [phone] PCP - General Nurse Practitioner 10/27/24 Tiffanie Hargrove, RN [address] [place] [address] Specialty Boat Hoist Operator Helper Hematology/Oncology 11/29/24 Kvng Perez MD [address] [place] [address] Physician Hematology/Oncology 11/29/24 Food And Beverage Analyst Relationship Specialty Start Date End Date Carlos Collins HEALTH NURSE.EMPLOYMENT COACH [address] [place] [phone] PCP - General Nurse Practitioner 10/27/24 Tiffanie Hargrove RN [address] [facility] [place] [address] Specialty Boat Hoist Operator Helper Hematology/Oncology 11/29/24 Kvng Perez MD [address] [facility] [place] [address] Physician Hematology/Oncology 11/29/24 Food And Beverage Analyst Relationship Specialty Start Date End Date Carlos Collins, HEALTH NURSE.EMPLOYMENT COACH [address] [place] [phone] PCP - General Nurse Practitioner 10/27/24 Tiffanie Hargrove RN [address] [facility] [place] [address] Specialty Boat Hoist Operator Helper Hematology/Oncology 11/29/24 Kvng Perez MD [address] [place] [address] [place] [address] Physician Hematology/Oncology 11/29/24 Goals (unrecognized section and content) Goals may be documented in a n alternate section Source Comments (unrecognize d section and content) In the event this informatio n is protected by the Federal Confidentiality of Alcohol and Drug Abuse Patient Records regulations: The Federal rules restrict any use of the information to criminally investigate or prosecute any alcohol or drug abuse patient.[facility] the event this information is protected by the Federal Confidentiality of Alcohol and Drug Abuse Patient Records regulations: The Federal rules restrict any use of the information to criminally investigate or prosecute any alcohol or drug abuse patient.[facility] the event this information is protected by the Federal Confidentiality of Alcohol and Drug Abuse Patient Records regulations: The Federal rules restrict any use of the information to criminally investigate or prosecute any alcohol or drug abuse patient.[facility] the event this information is protected by the Federal Confidentiality of Alcohol and Drug Abuse Patient Records regulations: The Federal rules restrict any use of the information to criminally investigate or prosecute any alcohol or drug abuse patient.[facility] the event this information is protected by the Federal Confidentiality of Alcohol and Drug Abuse Patient Records regulations: The Federal rules restrict any use of the information to criminally investigate or prosecute any alcohol or drug abuse patient.[facility] the event this information is protected by the Federal Confidentiality of Alcohol and Drug Abuse Patient Records regulations: The Federal rules restrict any use of the information to criminally investigate or prosecute any alcohol or drug abuse patient.[facility] the event this information is protected by the Federal Confidentiality of Alcohol and Drug Abuse Patient Records regulations: The Federal rules restrict any use of the information to criminally investigate or prosecute any alcohol or drug abuse patient.[facility] the event this information is protected by the Federal Confidentiality of Alcohol and Drug Abuse Patient Records regulations: The Federal rules restrict any use of the information to criminally investigate or prosecute any alcohol or drug abuse patient.[facility] the event this information is protected by the Federal Confidentiality of Alcohol and Drug Abuse Patient Records regulations: The Federal rules restrict any use of the information to criminally investigate or prosecute any alcohol or drug abuse patient.[facility] the event this information is protected by the Federal Confidentiality of Alcohol and Drug Abuse Patient Records regulations: The Federal rules restrict any use of the information to criminally investigate or prosecute any alcohol or drug abuse patient.[facility] the event this information is protected by the Federal Confidentiality of Alcohol and Drug Abuse Patient Records regulations: The Federal rules restrict any use of the information to criminally investigate or prosecute any alcohol or drug abuse patient.[facility] the event this information is protected by the Federal Confidentiality of Alcohol and Drug Abuse Patient Records regulations: The Federal rules restrict any use of the information to criminally investigate or prosecute any alcohol or drug abuse patient.[facility] the event this information is protected by the Federal Confidentiality of Alcohol and Drug Abuse Patient Records regulations: The Federal rules restrict any use of the information to criminally investigate or prosecute any alcohol or drug abuse patient.[facility] HospitalIn the event this information is protected by the Federal Confidentiality of Alcohol and Drug Abuse Patient Records regulations: The Federal rules restrict any use of the information to criminally investigate or prosecute any alcohol or drug abuse patient.[facility] HospitalIn the event this information is protected by the Federal Confidentiality of Alcohol and Drug Abuse Patient Records regulations: The Federal rules restrict any use of the information to criminally investigate or prosecute any alcohol or drug abuse patient.[facility] HospitalIn the event this information is protected by the Federal Confidentiality of Alcohol and Drug Abuse Patient Records regulations: The Federal rules restrict any use of the information to criminally investigate or prosecute any alcohol or drug abuse patient.[facility] HospitalIn the event this information is protected by the Federal Confidentiality of Alcohol and Drug Abuse Patient Records regulations: The Federal rules restrict any use of the information to criminally investigate or prosecute any alcohol or drug abuse patient.[facility] HospitalIn the event this information is protected by the Federal Confidentiality of Alcohol and Drug Abuse Patient Records regulations: The Federal rules restrict any use of the information to criminally investigate or prosecute any alcohol or drug abuse patient.[facility] HospitalIn the event this information is protected by the Federal Confidentiality of Alcohol and Drug Abuse Patient Records regulations: The Federal rules restrict any use of the information to criminally investigate or prosecute any alcohol or drug abuse patient.[facility] HospitalIn the event this information is protected by the Federal Confidentiality of Alcohol and Drug Abuse Patient Records regulations: The Federal rules restrict any use of the information to criminally investigate or prosecute any alcohol or drug abuse patient.[facility] HospitalIn the event this information is protected by the Federal Confidentiality of Alcohol and Drug Abuse Patient Records regulations: The Federal rules restrict any use of the information to criminally investigate or prosecute any alcohol or drug abuse patient.[facility] HospitalIn the event this information is protected by the Federal Confidentiality of Alcohol and Drug Abuse Patient Records regulations: The Federal rules restrict any use of the information to criminally investigate or prosecute any alcohol or drug abuse patient.[facility] HospitalIn the event this information is protected by the Federal Confidentiality of Alcohol and Drug Abuse Patient Records regulations: The Federal rules restrict any use of the information to criminally investigate or prosecute any alcohol or drug abuse patient.[facility] HospitalIn the event this information is protected by the Federal Confidentiality of Alcohol and Drug Abuse Patient Records regulations: The Federal rules restrict any use of the information to criminally investigate or prosecute any alcohol or drug abuse patient.[facility] HospitalIn the event this information is protected by the Federal Confidentiality of Alcohol and Drug Abuse Patient Records regulations: The Federal rules restrict any use of the information to criminally investigate or prosecute any alcohol or drug abuse patient.[facility] HospitalIn the event this information is protected by the Federal Confidentiality of Alcohol and Drug Abuse Patient Records regulations: The Federal rules restrict any use of the information to criminally investigate or prosecute any alcohol or drug abuse patient.[facility] HospitalIn the event this information is protected by the Federal Confidentiality of Alcohol and Drug Abuse Patient Records regulations: The Federal rules restrict any use of the information to criminally investigate or prosecute any alcohol or drug abuse patient.[facility] HospitalIn the event this information is protected by the Federal Confidentiality of Alcohol and Drug Abuse Patient Records regulations: The Federal rules restrict any use of the information to criminally investigate or prosecute any alcohol or drug abuse patient.[facility] HospitalIn the event this information is protected by the Federal Confidentiality of Alcohol and Drug Abuse Patient Records regulations: The Federal rules restrict any use of the information to criminally investigate or prosecute any alcohol or drug abuse patient.[facility] HospitalIn the event this information is protected by the Federal Confidentiality of Alcohol and Drug Abuse Patient Records regulations: The Federal rules restrict any use of the information to criminally investigate or prosecute any alcohol or drug abuse patient.[facility] HospitalIn the event this information is protected by the Federal Confidentiality of Alcohol and Drug Abuse Patient Records regulations: The Federal rules restrict any use of the information to criminally investigate or prosecute any alcohol or drug abuse patient.[facility] HospitalIn the event this information is protected by the Federal Confidentiality of Alcohol and Drug Abuse Patient Records regulations: The Federal rules restrict any use of the information to criminally investigate or prosecute any alcohol or drug abuse patient.[facility] Reason for Visit (unrecogniz ed section and content) Reason Comments Consult Lung Cancer Reason Comments FMLA Paperwork Reason Comments 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, RECENTLY DIAGNOSED WITH LUNG CANCER RIGHT LOWER LOBE, SCHED W/ Reason Comments new Reason Onset Date Comments Planning radiation treatments to lung 11/17/2024 Reason Comments Lung Cancer 2 week follow up Reason Comments Patient Education Reason Comments Appointment Reason Comments Follow-up ov-wound ck-s/p imp 5-29 w/jzl-scheduled w/pt Reason Comments Device Check Reason Comments Patient Update Patient Question Reason Onset Date Comments Refill Request 11/27/2024 Care Coordination 11/27/2024 Treatment prep Reason Comments First Time Treatment Education Reason Comments Care Coordination Clinical update Reason Comments Patient Update Reason Comments Medication Request Reason Comments Bronchoscopy Referral Reason Comments Patient Update Future Appointment Reason Onset Date Comments Simulation Request Form 11/17/2024 Specialty Diagnoses / Procedures Referred By Beti montiel Referred To Contact Radiation Oncology Diagnoses Malignant neoplasm of lower lobe of right lung (HCC) Procedures RAD/ONC CONSULT OFFICE/OUTPATIENT NEW HIGH MDM 60 MINUTES Kvng Perez MD [facility] [place] [address] Phone: tel: fax: Referral ID Status Reason Start Date Expiration Date V isits Requested Visits Authorized [id number] Closed PCP Requested Referral 11/03/2024 10/27/2025 1 1 Reason Comments Follow-up add on ov -per ser-s cheduled w/pt-ok per ser r/s w pt from am appt due to oncology appt ok per cathie Reason Comments Device Check Reason Comments Radiology CT Specialty Diagnoses / Procedures Referred By Beti montiel Referred To Contact CT IMAGING Diagnoses Malignant neoplasm of lower lobe of right lung (HCC) Procedures CT BRAIN WO IVCON CT HEAD/BRAIN W/O CONTRAST MATERIAL Kvng Perez MD [facility] [place] [address] Phone: tel: fax: [place] [phone] Referral ID Status Reason Start Date Expiration Date V isits Requested Visits Authorized [id number] Closed Auto-Generate d Referral 11/28/2024 06/13/2025 1 1 Reason Comments Care Coordination Clinical update Reason Comments Care Coordination results Reason Comments Care Coordination Foundation one testi ng question Reason Comments Care Coordination P.T. FOR RECORDS PERTAINING TO PATIENTS WHO ARE [...] BE BASED ON THE PRIMARY CLINICAL RECORDS. [facility] [employer] [facility]. provides no warranty or guarantee of the accuracy or completeness of information in this document.
--- NOTE | 2024-12-15 13:58 | XR_ITS ---
[facility] [place] [id number] Patient Name: JATIN KOCH MRN: [id number] date: 1960 Sex: M Assigned Patient Location: ER Current Patient Location: ER Accession/Order Number: [id number] Exam Date: 12/15/2024 14:52 Report Date: 12/15/2024 14:54 At the request of: HENRIK CISNEROS MD Procedure: XR chest 1V PA CHEST: CLINICAL HISTORY: shivering COMPARISON: 12/05/2024 FINDINGS: left-sided pacemaker device. Stable enlarged cardiomediastinal silhouette. Right infrahilar masslike opacity again identified. Remaining lungs are clear. No effusion or pneumothorax. IMPRESSION: Right infrahilar masslike opacity, unchanged. Otherwise negative for acute pleural-parenchymal disease. Impression dictated by: Marcell Arroyo M.D. 12/15/2024 2:54 PM Dictation Location: [place] [address] Electronically authenticated by: [id number] Y Date: 12/15/2024 14:54
--- NOTE | 2024-12-15 13:58 | ECG_ITS ---
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 Measurements Intervals [place] Rate: 116 P: -[id number] DE: -[id number] QRS: 239 QRSD: 150 T: 65 QT: 362 QTc: 431 Interpretive Statements Likely atrial flutter converting to sinus rhythm Electronic ventricular pacemaker Abnormal ECG Compared to ECG 11/03/2024 21:10:46 Atrial flutter is now present Electronic ventricular pacemaker is now present Electronically Signed On 12-18-2024 20:25:34 EDT by AGATHA SALAZAR M.D.
--- NOTE | 2024-12-15 14:00 | ED.GENADUL1 ---
HPI HPI - General Adult General Chief complaint: Weakness Stated complaint: WEAKNESS DEHYDRATION Time Seen by Provider: 12/15/24 13:47 Source: family Mode of arrival: Wheelchair Limitations: no limitations History of Present Illness HPI narrative: 64-year-old male presents to the emergency department for shivering and epigastric fullness. His gives all the history. He has known lung cancer but has not had any treatment for it. He is scheduled to start radiation and chemotherapy soon. Yesterday he started feeling ill and then it was worse today so she brought him in. He will also to give all of the history. Related Data Home Medications ?Medication ?Instructions ?Recorded ?Confirmed acetaminophen 325 mg tablet 650 mg PO Q6H PRN pain 10/12/24 12/15/24 (Tylenol) dextromethorphan-guaifenesin 30 1 tab PO DAILY 10/12/24 12/15/24 mg-600 mg tablet extended vouecql20 hr (Mucinex DM) fluticasone propionate 50 1 spray intranasal DAILY PRN nasal 10/12/24 12/15/24 mcg/actuation nasal congestion spray,suspension (24 Hour Allergy Relief) bqbyybftnodd-mwrhuxvd-tsmpxj 1 tab PO DAILY 10/12/24 12/15/24 tablet (Multivitamin 50 Plus tablet) benzonatate 200 mg capsule 200 mg PO DAILY PRN cough 11/02/24 12/15/24 metoprolol succinate 25 mg 25 mg PO .QD 11/03/24 12/15/24 tablet,extended release 24 hr albuterol sulfate 2.5 mg/3 mL 2.5 mg inhalation Q6H PRN 12/15/24 12/15/24 (0.083 %) solution for nebulization shortness of breath or wheezing ondansetron HCl 8 mg tablet 8 mg PO Q12H PRN nausea and 12/15/24 12/15/24 vomiting prochlorperazine maleate 10 mg 10 mg PO Q12H PRN nausea and 12/15/24 12/15/24 tablet vomiting Previous Rx's ?Medication ?Instructions ?Recorded meclizine 25 mg tablet 25 mg PO TID #20 tabs 11/02/24 Allergies Allergy/AdvReac Type Severity Reaction Status Date / Time codeine Allergy Severe Flushing Verified 12/15/24 13:56 sulfamethoxazole (From AdvReac Severe difficulty Verified 12/15/24 13:56 Bactrim) urinating trimethoprim (From Bactrim) AdvReac Severe Unknown Verified 12/15/24 13:56 Opioid HPI Opioid Management Most Recent Opioid Data: Last Pain Scale 4 Today, 13:49 Last ORT Total Score 0 11/04/24, 03:16 Last ORT Risk Category Low Risk 11/04/24, 03:16 Review of Systems ROS Narrative A ten point review of systems is negative except as noted above. [facility] Medical History (Updated 12/15/24 @ 18:28 by Jake Porras MD) Severe protein-calorie malnutrition ?E43 - Unspecified severe protein-calorie malnutrition (ICD-10) Hypomagnesemia ?E83.42 - Hypomagnesemia (ICD-10) Iron deficiency anemia ?D50.9 - Iron deficiency anemia, unspecified (ICD-10) Orthostatic hypotension ?I95.1 - Orthostatic hypotension (ICD-10) Right bundle branch block ?I45.10 - Unspecified right bundle-branch block (ICD-10) Intraventricular conduction delay ?I45.9 - Conduction disorder, unspecified (ICD-10) Squamous cell lung cancer ?C34.90 - Malignant neoplasm of unspecified part of unspecified bronchus or lung (ICD-10) Immune deficiency disorder ?D84.9 - Immunodeficiency, unspecified (ICD-10) Vertigo ?R42 - Dizziness and giddiness (ICD-10) Recurrent syncope ?R55 - Syncope and collapse (ICD-10) Acute kidney injury ?N17.9 - Acute kidney failure, unspecified (ICD-10) Leukocytosis ?D72.829 - Elevated white blood cell count, unspecified (ICD-10) Pneumonia ?J18.9 - Pneumonia, unspecified organism (ICD-10) Respiratory distress ?R06.03 - Acute respiratory distress (ICD-10) Lactic acidosis ?E87.20 - Acidosis, unspecified (ICD-10) Sepsis ?A41.9 - Sepsis, unspecified organism (ICD-10) Lung cancer, lower lobe ?C34.30 - Malignant neoplasm of lower lobe, unspecified bronchus or lung (ICD-10) RLL pneumonia ?J18.9 - Pneumonia, unspecified organism (ICD-10) Carpal tunnel syndrome ?G56.00 - Carpal tunnel syndrome, unspecified upper limb (ICD-10) Back pain ?M54.9 - Dorsalgia, unspecified (ICD-10) Arthritis ?M19.90 - Unspecified osteoarthritis, unspecified site (ICD-10) Snores ?R06.83 - Snoring (ICD-10) Sleep apnea ?G47.30 - Sleep apnea, unspecified (ICD-10) Influenza ?J11.1 - Influenza due to unidentified influenza virus with other respiratory manifestations (ICD-10) Right lower lobe lung mass ?R91.8 - Other nonspecific abnormal finding of lung field (ICD-10) Skin cancer ?C44.90 - Unspecified malignant neoplasm of skin, unspecified (ICD-10) Hypoxia ?R09.02 - Hypoxemia (ICD-10) 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 - Shortness of breath (ICD-10) ?U09.9 - Post covid-19 condition, unspecified (ICD-10) HTN (hypertension) ?I10 - Essential (primary) hypertension (ICD-10) KERR (dyspnea on exertion) ?R06.09 - Other forms of dyspnea (ICD-10) Pneumonia ?J18.9 - Pneumonia, unspecified organism (ICD-10) COVID-19 ?U07.1 - COVID-19 (ICD-10) History of COVID-19 ?Z86.16 - Personal history of COVID-19 (ICD-10) Surgical History (Updated 10/12/24 @ 12:46 by Macy Goodrich NP) H/O transurethral resection of prostate ?Z98.890 - Other specified postprocedural states (ICD-10) ?Z90.79 - Acquired absence of other genital organ(s) (ICD-10) History of colonoscopy ?Z98.890 - Other specified postprocedural states (ICD-10) History of myringotomy ?Z98.890 - Other specified postprocedural states (ICD-10) History of carpal tunnel release ?Z98.890 - Other specified postprocedural states (ICD-10) History of carpal tunnel surgery ?Z98.890 - Other specified postprocedural states (ICD-10) History of tonsillectomy ?Z90.89 - Acquired absence of other organs (ICD-10) Family History (Updated 10/06/24 @ 23:50 by Svetlana Kimball RN) Father Family history of myocardial infarction Son Family history of stroke Other Family history of CHF (congestive heart failure) Social History (Updated 11/04/24 @ 02:55 by Mary Ellen Mary) Within the past year, how often did you have a drink containing alcohol: never Score interpretation: A score less than 4 is consistent with normal alcohol consumption. Smoking status: Former smoker Non-prescribed substance use: denies use Previous occupational history: retired Highest level of school completed/degree received: Associate degree: occupational, technical, vocational program Are you now , , , , never or living with a partner: In a typical week, how many times do you talk on the telephone with family, friends, or neighbors: once per week How often do you get together with friends or relatives: once per week Little interest or pleasure in doing things: not at all Feeling down, depressed, or hopeless: not at all Do you think of yourself as: straight/heterosexual Gender Identity: male Exam Narrative Exam Narrative: Nurses note and vital signs reviewed and patient is not hypoxic. General: The patient is shivering. He seems to prefer to keep his eyes closed but will open them when spoken to and when speaking. Skin: Warm, dry, no pallor noted. There is no rash noted. Head: Normocephalic, atraumatic Eye: Normal conjunctiva, no drainage Ears, Nose, Mouth, and Throat: oral mucosa is moist. Nares patent. Cardiovascular: Regular Rate and Rhythm Respiratory: Patient is in no distress, no accessory muscle use, lungs are clear to auscultation, no wheezing, rales or rhonchi GI: Soft and nontender. No masses or specific tenderness of the epigastric area Musculoskeletal: The patient has no evidence of calf tenderness, no pitting edema, symmetrical pulses noted bilaterally Neurological: A&O x 4, normal speech Psychiatric: Cooperative Constitutional Vital Signs, click to edit/add: Last Vital Signs Temp 100 F 12/15/24 15:26 Pulse 100 H 12/15/24 17:10 Resp 27 H 12/15/24 17:10 BP 118/57 12/15/24 16:19 Pulse Ox 95 12/15/24 17:10 O2 Del Method Room Air 12/15/24 15:26 Course Vital Signs Vital signs: Vital Signs Temperature 99.6 F 12/15/24 13:49 Pulse Rate 95 H 12/15/24 13:49 Respiratory Rate 24 H 12/15/24 13:49 Blood Pressure 117/76 12/15/24 13:49 Pulse Oximetry 96 12/15/24 13:49 Oxygen Delivery Method Room Air 12/15/24 13:49 Temperature 100 F 12/15/24 15:26 Pulse Rate 100 H 12/15/24 17:10 Respiratory Rate 27 H 12/15/24 17:10 Blood Pressure 118/57 12/15/24 16:19 Pulse Oximetry 95 12/15/24 17:10 Oxygen Delivery Method Room Air 12/15/24 15:26 Medical Decision Making MDM Narrative Medical decision making narrative: The patient has a WBC of 33,000. Blood cultures were obtained. Urinalysis shows no evidence of UTI and chest x-ray was negative. CT of the abdomen was carried out which shows no intra-abdominal findings but suggest the possibility of pneumonitis, postobstructive. He was given IV vancomycin and Zosyn as well as IV fluids and he seems to be feeling improved. He will be admitted for IV antibiotics and findings are discussed thoroughly with the patient and his . Initial lactic acid was 6.1 and the repeat was down significantly to 1.5. Treatment diagnosis and disposition were discussed with the patient and his . COVID test was not performed because he had COVID approximately 2 weeks ago and could still test positive, falsely today. Differential Diagnosis Differential Diagnosis: Pneumonia, UTI, intra-abdominal infection, viral illness Lab Data Lab results reviewed: Yes I reviewed the patient's lab results Labs: Lab Results 12/15/24 12/15/24 12/15/24 Range/Units 13:57 14:08 15:40 WBC 33.6 H* (4.0-11.0) 10^3/uL RBC 4.92 (4.70-6.10) 10^6/uL Hgb 13.4 L (14.0-18.0) g/dL Hct 43.2 (42.0-54.0) % MCV 87.8 (80.0-94.0) fL MCH 27.2 (25.9-34.0) pg MCHC 31.0 (29.9-35.2) g/dL RDW 15.2 H (11.0-15.0) % Plt Count 382 (150-450) 10^3/uL MPV 9.6 (9.5-13.5) fL Seg Neuts % (Manual) 84.0 H (43.0-75.0) Band Neutrophils % 3.0 (0-5) % Lymphocytes % (Manual) 7.0 L (20.5-60.0) % Monocytes % (Manual) 4.0 (1.7-12.0) % Eosinophils % (Manual) 2.0 (0.9-7.0) % Basophils % (Manual) 0.0 L (0.2-2.0) % Neutrophils # (Manual) 28.22 H (1.4-6.5) 10^3/uL Band Neutrophils # 1.0 H (0.0-0.3) 10^3/uL Lymphocytes # (Manual) 2.35 (1.20-3.80) 10^3/uL Monocytes # (Manual) 1.34 H (0.30-0.80) 10^3/uL Eosinophils # (Manual) 0.67 (0.00-0.70) 10^3/uL Basophils # (Manual) 0.00 (0.00-0.10) 10^3/uL Toxic Vacuolation 1+ Plt Clumps, EDTA Few Sodium 138 (136-145) mmol/L Potassium 4.6 (3.5-5.1) mmol/L Chloride 97 L (98-107) mmol/L Carbon Dioxide 25.4 (21.0-32.0) mmol/L Anion Gap 20.2 BUN 34.0 H (7.0-18.0) mg/dL Creatinine 1.17 (0.70-1.30) mg/dL Est GFR ( Amer) >60 (>=60 mL/min/1.73m^2) Est GFR (Non-Af Amer) >60 (>=60 mL/min/1.73m^2) BUN/Creatinine Ratio 29.1 Glucose 125 H (74-106) mg/dL Lactate 6.1 H* (0.4-2.0) mmol/L Calcium 13.7 H* (8.5-10.1) mg/dL Total Bilirubin 0.6 (0.2-1.0) mg/dL Direct Bilirubin 0.2 (0.0-0.2) mg/dL AST 23 (15-37) U/L ALT 88 H (16-63) U/L Alkaline Phosphatase 106 (46-116) U/L Total Protein 7.9 (6.4-8.2) g/dL Albumin 3.2 L (3.4-5.0) g/dL Globulin 4.7 g/dL Albumin/Globulin Ratio 0.7 Amylase 48 (25-115) U/L Lipase 19.0 (16.0-77.0) U/L Urine Color Yellow (YELLOW) Urine Clarity Clear (CLEAR) Urine pH 6.0 (5.0-9.0) Ur Specific Boyds 1.015 (1.005-1.025) Urine Protein Trace (NEG/TRACE) mg/dL Urine Glucose (UA) Negative (NEGATIVE) mg/dL Urine Ketones Negative (NEGATIVE) mg/dL Urine Occult Blood Negative (NEGATIVE) Urine Nitrite Negative (NEGATIVE) Urine Bilirubin Negative (NEGATIVE) Urine Urobilinogen 0.2 (0.2-1.0) EU/dL Ur Leukocyte Esterase Negative (NEGATIVE) Urine RBC 0-2 (0-2) #/HPF Urine WBC 0-2 A (NONE SEEN) #/HPF Ur Squamous Epith Cells Rare (NONE/RARE) #/LPF Urine Crystals None seen (None Seen) #/HPF Urine Bacteria None seen (NONE SEEN) #/HPF Urine Casts None seen (NONE SEEN) #/LPF Urine Mucus None seen (NONE SEEN) Ur Culture Indicated? No POC Glucose 118 H (74-106) mg/dL 12/15/24 Range/Units 16:53 WBC (4.0-11.0) 10^3/uL RBC (4.70-6.10) 10^6/uL Hgb (14.0-18.0) g/dL Hct (42.0-54.0) % MCV (80.0-94.0) fL MCH (25.9-34.0) pg MCHC (29.9-35.2) g/dL RDW (11.0-15.0) % Plt Count (150-450) 10^3/uL MPV (9.5-13.5) fL Seg Neuts % (Manual) (43.0-75.0) Band Neutrophils % (0-5) % Lymphocytes % (Manual) (20.5-60.0) % Monocytes % (Manual) (1.7-12.0) % Eosinophils % (Manual) (0.9-7.0) % Basophils % (Manual) (0.2-2.0) % Neutrophils # (Manual) (1.4-6.5) 10^3/uL Band Neutrophils # (0.0-0.3) 10^3/uL Lymphocytes # (Manual) (1.20-3.80) 10^3/uL Monocytes # (Manual) (0.30-0.80) 10^3/uL Eosinophils # (Manual) (0.00-0.70) 10^3/uL Basophils # (Manual) (0.00-0.10) 10^3/uL Toxic Vacuolation Plt Clumps, EDTA Sodium (136-145) mmol/L Potassium (3.5-5.1) mmol/L Chloride (98-107) mmol/L Carbon Dioxide (21.0-32.0) mmol/L Anion Gap BUN (7.0-18.0) mg/dL Creatinine (0.70-1.30) mg/dL Est GFR ( Amer) (>=60 mL/min/1.73m^2) Est GFR (Non-Af Amer) (>=60 mL/min/1.73m^2) BUN/Creatinine Ratio Glucose (74-106) mg/dL Lactate 1.5 (0.4-2.0) mmol/L Calcium (8.5-10.1) mg/dL Total Bilirubin (0.2-1.0) mg/dL Direct Bilirubin (0.0-0.2) mg/dL AST (15-37) U/L ALT (16-63) U/L Alkaline Phosphatase (46-116) U/L Total Protein (6.4-8.2) g/dL Albumin (3.4-5.0) g/dL Globulin g/dL Albumin/Globulin Ratio Amylase (25-115) U/L Lipase (16.0-77.0) U/L Urine Color (YELLOW) Urine Clarity (CLEAR) Urine pH (5.0-9.0) Ur Specific Boyds (1.005-1.025) Urine Protein (NEG/TRACE) mg/dL Urine Glucose (UA) (NEGATIVE) mg/dL Urine Ketones (NEGATIVE) mg/dL Urine Occult Blood (NEGATIVE) Urine Nitrite (NEGATIVE) Urine Bilirubin (NEGATIVE) Urine Urobilinogen (0.2-1.0) EU/dL Ur Leukocyte Esterase (NEGATIVE) Urine RBC (0-2) #/HPF Urine WBC (NONE SEEN) #/HPF Ur Squamous Epith Cells (NONE/RARE) #/LPF Urine Crystals (None Seen) #/HPF Urine Bacteria (NONE SEEN) #/HPF Urine Casts (NONE SEEN) #/LPF Urine Mucus (NONE SEEN) Ur Culture Indicated? POC Glucose (74-106) mg/dL Imaging Data Chest x-ray: Radiologist's impression: ITS Impressions Abdomen/Pelvis CT 12/15/24 15:21 IMPRESSION: Right lower lobe airspace disease possibly related to post obstructive pneumonitis by the lung mass Bladder wall thickening greatest anteriorly, correlate with urinalysis findings. Colonic diverticulosis. No definite metastatic disease to the abdomen pelvis. Impression dictated by: Marcell rAroyo M.D. 12/15/2024 4:26 PM Dictation Location: [place] [address] Electronically authenticated by: [id number] Y Date: 12/15/2024 16:26 ECG Data Attestation: I personally reviewed and interpreted this ECG as follows: (EKG on my interpretation shows paced rhythm) Discharge Plan Discharge Chief Complaint: Weakness Clinical Impression: Pneumonitis, Leukocytosis, Fever Patient Disposition: Admitted As Inpatient Time of Disposition Decision: 18:28 Condition: Fair
[2024-12-15] MEDS: 0.9 % SODIUM CHLORIDE 1,000 ML 1000 ML IV ×2 (14:14→16:15)
[2024-12-15 14:24] LABS: Hematocrit 43.2 % (42.0-54.0); Hemoglobin 13.4 g/dL (14.0-18.0); Mean Corpuscular HGB Conc 31.0 g/dL (29.9-35.2); Mean Corpuscular Hemoglobin 27.2 pg (25.9-34.0); Mean Corpuscular Volume 87.8 fL (80.0-94.0); Platelet Count 382 10^3/uL (150-450); Red Blood Count 4.92 10^6/uL (4.70-6.10)
[2024-12-15 14:33] LABS: Alanine Aminotransferase 88 U/L (16-63); Albumin Globulin Ratio 0.7; Albumin Level 3.2 g/dL (3.4-5.0); Alkaline Phosphatase 106 U/L (46-116); Amylase 48 U/L (25-115); Aspartate Amino Transferase 23 U/L (15-37); Globulin 4.7 g/dL; Lipase 19.0 U/L (16.0-77.0); Total Protein 7.9 g/dL (6.4-8.2)
[2024-12-15 14:38] LABS: Anion Gap 20.2; Blood Urea Nitrogen 34.0 mg/dL (7.0-18.0); Carbon Dioxide 25.4 mmol/L (21.0-32.0); Chloride 97 mmol/L (98-107); Estimated GFR (African America >60 (>=60 mL/min/1.73m^2); Estimated GFR (Non-African Ame >60 (>=60 mL/min/1.73m^2); Glucose 125 mg/dL (74-106); Potassium 4.6 mmol/L (3.5-5.1); Sodium 138 mmol/L (136-145)
[2024-12-15 14:40] LABS: White Blood Count 33.6 10^3/uL (4.0-11.0)
[2024-12-15 14:41] LABS: Calcium 13.7 mg/dL (8.5-10.1); Lactate/Lactic Acid 6.1 mmol/L (0.4-2.0)
[2024-12-15 14:47] LABS: Band Neutrophils Absolute 1.0 10^3/uL (0.0-0.3); Basophils Abs Manual 0.00 10^3/uL (0.00-0.10); Basophils Percent Manual 0.0 % (0.2-2.0); Eosinophils Absolute Manual 0.67 10^3/uL (0.00-0.70); Eosinophils Percent Manual 2.0 % (0.9-7.0); Lymphocytes Absolute Manual 2.35 10^3/uL (1.20-3.80); Lymphocytes Percent Manual 7.0 % (20.5-60.0); Monocytes Absolute Manual 1.34 10^3/uL (0.30-0.80); Monocytes Percent Manual 4.0 % (1.7-12.0); Segmented Neut Absolute Manual 28.22 10^3/uL (1.4-6.5); Segmented Neutrophils % Manual 84.0 (43.0-75.0)
[2024-12-15 14:48] LABS: Toxic Vacuolation 1+
--- NOTE | 2024-12-15 15:21 | CT_ITS ---
The [address] [address] Patient Name: JATIN KOCH MRN: [id number] date: 1960 Sex: M Assigned Patient Location: ER Current Patient Location: ER Accession/Order Number: [id number] Exam Date: 12/15/2024 16:17 Report Date: 12/15/2024 16:26 At the request of: HENRIK CISNEROS MD Procedure: CT abdomen pelvis w con CT ABDOMEN AND PELVIS WITH INTRAVENOUS CONTRAST: CLINICAL HISTORY: Elevated WBC, chills COMPARISON: CT chest 10/06/2024 TECHNIQUE: Spiral images were obtained through the abdomen and pelvis following the administration of intravenous contrast. This CT exam was performed using one or more following dose reduction techniques: Automated exposure control, adjustment of the mA and/or kV according to patient size, or use of iterative reconstruction technique. FINDINGS: Lung Bases: [Right lower lobe consolidation and likely endobronchial obstruction noted. Right infrahilar region soft tissue mass partially visualized.] Organs: Bilateral renal cysts largest in the right. Focal splenic evidence of the noted likely a cyst. No focal liver lesions. Gallbladder, adrenals, pancreas unremarkable. GI: Moderate distal colonic stool.. No bowel obstruction. Moderate colonic diverticulosis. Unremarkable appendix.[ Pelvis:[Bladder wall thickening greatest anteriorly. Prostate unremarkable.] Peritoneum/Retroperitoneum:Tiny fat-containing inguinal hernias right greater than left.[Moderate plaque throughout the nonaneurysmal aorta. Abd wall/Bones:Multilevel disc space narrowing and multilevel disc osteophyte complex formation identified throughout the visualized lower thoracic and visualized lumbar spine. Likely moderate canal narrowing identified. Multilevel foraminal encroachment greatest lower lumbar spine. Possible hemangioma L2. No destructive osseous mass.[ CT/CT abdomen pelvis w con IMPRESSION: Right lower lobe airspace disease possibly related to post obstructive pneumonitis by the lung mass Bladder wall thickening greatest anteriorly, correlate with urinalysis findings. Colonic diverticulosis. No definite metastatic disease to the abdomen pelvis. Impression dictated by: Marcell Arroyo M.D. 12/15/2024 4:26 PM Dictation Location: [place] [address] Electronically authenticated by: [id number] Y Date: 12/15/2024 16:26
[2024-12-15 15:48] LABS: Glucose Urine UA NEGATIVE (NEGATIVE)
[2024-12-15 15:55] LABS: Cast Seen? NONE SEEN #/LPF (NONE SEEN); Crystals Seen? None Seen #/HPF (None Seen); Urine Culture Indicated NO
[2024-12-15] MEDS: PIPERACILLIN SODIUM/TAZOBACTAM 3.375 GM in 0.9 % SODIUM CHLORIDE 50 ML IV (16:15)
[2024-12-15] MEDS: VANCOMYCIN HCL 1,750 MG in 0.9 % SODIUM CHLORIDE 500 ML 250 MG IV (17:06)
[2024-12-15 17:17] LABS: Lactate/Lactic Acid 1.5 mmol/L (0.4-2.0)
--- OUTSIDE RECORDS SUMMARY | 2024-12-15 20:01 | XMS_ITS | CCD ---
Author Organization [facility] CliniSynd Care Team Providers Care Airconditioning Drafting Officer Name Role Phone DR ALINA RAGLAND Admitting [...] Consulting Unavailable ALINA RAGLAND Primary Care Physician Alina Ragland MD Primary Care Provider [phone] Tonja De Oliveira APRN Attending Provider [phone] Unavailable Primary Care Provider Unavailabl e Chip Carbajal DO Attending Provider Doug Bowles Primary Care Provider Chip Carbajal Attending Unavailable Chip Carbjaal Admitting Unavailable Tonja De Oliveira Attending Unavailable Tonja De Oliveira Admitting Unavailable Alina Ragland Primary Care Unavailable Dennis WHOLESALE ACCOUNT MANAGER.Carlos POTTER Primary Care Provider Alina Ragland MD Primary Care Provider [phone] Dennis MCLEAN-Carlos POTTER Primary Care Provider ALINA [...] Tiffanie Chacon Unavailable Ana MEDINA, Kvng Unavailable [phone] IDANIA BARNEY Admitting Unavailable IDANIA BARNEY Attending [...] Referring Unavailable VENNEPUREDDY, KVNG Attending Unavailable EZRA ILZAMA Attending Unavailable DENNIS, CARLOS L Primary Care [...] Unavailable Dennis, Carlos Fowler Attending Unavailable Dennis WHOLESALE ACCOUNT MANAGER.Carlos POTTER Primary Care Provider Allergies Allergy Classification Reported Allergen(s) Allergy Type Date of Onset Reaction(s) Facility (2 sources) Sulfamethoxazole / Trimethoprim; Translations: [Bactrim] Drug Allergy 07-22-19 21 [facility] Repository (20 sources) Sulfamethoxazole; Translations: [sulfamethoxazole] Drug Allergy 09-01-19 25 Other: See Comments, Unknown, Other (See Comments), GI Disturbance [facility] (20 sources) Sulfamethoxazole / Trimethoprim; Translations: [sulfamethoxazole-t rimethoprim] Drug Allergy 12-18-19 17 Other: See Comments [facility] (1 source) Pollen 1 Allergy to substance Watery eye (finding), Eye swelling (finding) [facility] Comment on above: Pt only has allergy to Donovan Tree Pollen (4 sources) Donovan pollen Allergy to substance 08-11-19 Eyes swell shut;sneezing [facility] (4 sources) Trimethoprim Drug Allergy 09-01-19 25 Unable to urinate [facility] (20 sources) Codeine; Translations: [CODEINE] Drug Allergy 10-26-19 25 Other: See Comments, diaphoresis [facility] (4 sources) Sulfamethoxazole / Trimethoprim; Translations: [SULFAMETHOXAZOLE-T RIMETHOPRIM] Drug Allergy 12-18-19 17 [facility] Repository (1 source) Pollen; Translations: [Pollen] Propensity to adverse reactions (disorder) [facility] Repository Medications Current Medications Medication Drug [...] Ordered Start: 08-11-2018 take 1 capsule by [facility] once daily Ascorbic Acid (Vitamin C) (Vitamin [...] Active Start: 08-31-2024 take 1 capsule by [facility] three times daily Benzonatate 100 mg capsule Active 100 MG PO Three times daily 01 01August 31, 2024 12:00am 12 hr dextromethorphan hydrobromide 30 mg / guaiFENesin 600 mg extended release oral tablet (15 sources) Uncompetitive C-rwnrcm-Q-aspartate Receptor Antagonist, Sigma-1 Agonist take 2 tablets by mouth twice daily dextromethorphan-guaiFENesin (MUCINEX DM) 30-600 mg per tablet Take 2 tablets by mouth two times a day. Active take 2 tablets by [facility] every twelve hours in the morning dextromethorphan-guaiFENesin [...] Pr opionate (Flonase Allergy Relief) 50 mcg/actuation [place],Suspension Active 1 SPRAYS INTRANASAL Daily as needed [...] - appetite, pain, energy Active PEPSIN/BLESSING/OXBILE/P ANCREAT/BET (JYVYLH-SZS-WX VFSZ-VLA-PBG-PAP ORAL) (2 sources) PEPSIN/BLESSING/OXBIL E/ PANCREAT/BET (LOVLMS-RUP-OD LRTY-UWI-HZM-PAP ORAL) Take by mouth. Active predniSONE 20 [...] Test Name Value Interpretation Reference Range Facility [facility] 12-12-2024 [facility] Telephone (HEMASA) -------- JATIN KOCH ([id number]) 1960 M Date Time Provider Department 12/12/24 [...] Fully Assessed Reason for Visit: Care Coordination [7307] Cmt: P.T. Prescriptions as of 12/12/2024 - [...] Encounter Status:Closed by TIFFANIE HARGROVE on 12/12/24 [facility] 12-08-2024 [facility] Nurse Visit (CORAL) -------- JATIN KOCH ([id number]) 1960 M Date Time Provider Department 12/08/24 [...] Encounter Status:Closed by RICHARDSON CANTU on 12/08/24 [facility] Telephone (HEMASA) -------- JATIN KOCH ([id number]) 1960 M Date Time Provider Department 12/08/24 TIFFANIE HARGROVE HEMASA During your visit today, we recorded the following information about you: Tiffanie Hargrove RN 12/08/2024 4:13 PM Signed Voicemail received from pt's stating she has questions regarding a prior auth that needs to be done for [facility] One testing. Call placed to pt's and [...] Encounter Status:Closed by TIFFANIE HARGROVE on 12/11/24 [facility] Telephone (HEMASA) -------- JATIN KOCH ([id number]) 1960 M Date Time Provider Department 12/08/24 TIFFANIE HARGROVE During your visit today, we recorded the following information about you: Tiffanie Hargrove, PRITI 12/08/2024 10:08 AM Signed Pt's CT brain done here on 12/07 recommends brain MRI with and without. Pt had a brain MRI done on 11/02 at [facility]. Does this need ot be repeated or [...] Fully Assessed Reason for Visit: Care Coordination [3974] Cmt: results Prescriptions as of 12/08/2024 - [...] by LU HARGROVEIsaac Chacon on 12/08/24 Normal [facility] CT BRAIN WO IVCONon 12-08-19 CT BRAIN WO IVCON * * *Final Report* * * DATE OF EXAM: Dec 07 2024 8:32AM [facility] - CT BRAIN WO IVCON / [...] any questions regarding this interpretation, please call [phone]. If you are unable to reach us at the number above, please feel free to contact [facility] eRadiology at [phone]. [id number] Normal [facility] CT Head WO contraston 2024 IMPRESSION: 1. [...] any questions regarding this interpretation, please call [phone]. If you are unable to reach us at the number above, please feel free to contact [facility] eRadiology at [phone]. DIVISION OF RADIOLOGY * * *Final Report* * * DATE OF EXAM: Dec 07 2024 8:32AM [facility] 0[facility] - CT BRAIN WO IVCON / [...] tissues are unremarkable. DIVISION OF RADIOLOGY Provider, [facility] - 12/07/2024 * * *Final Report* * * DATE OF EXAM: Dec 07 2024 8:32AM [facility] 0504 - CT BRAIN WO IVCON / [...] any questions regarding this interpretation, please call [phone]. If you are unable to reach us at the number above, please feel free to contact [facility] eRadiology at [phone]. [facility] Radiology Study observation (narrative) [facility] CT Head WO contrastOrdered B y: [facility] Provider on 12-07-2024 [facility] Ambulatory Visit Summaryon 0 12-05-2024 Ambulatory Visit [...] PALMA, VICTORIA Flores Where: [facility] [address] [address]- Wednesday 8:20 AM EDT With: Carlos Sethi Where: [address] [address]- Medications What How Much When Instructions Unchanged [...] kidney stones Hospital discharge follow-up Hx of skilled nursing use of blood thinners Kidney stones Microhematuria [...] signed up for this yet, please contact [employer] Information Management at [phone] to get signed up today. Language Information Language assistance services are available as needed. Man[facility] [place] 12-05-2024 CNPN Telephone (HEMASA) -------- JATIN KOCH ([id number]) 1960 M Date Time Provider Department 12/05/24 [...] Fully Assessed Reason for Visit: Care Coordination [3496] Cmt: Clinical update Prescriptions as of 12/08/2024 [...] Status:Closed by TIFFANIE HARGROVE on 12/08/24 Normal [facility] Medicine Office/Clini c Noteon 12-05-2024 Family Medicine Office/Clinic Note Family Medicine Office/Clinic Note Chief Complaint ER follow up HPI Staff Patient is presenting for ER follow up ER followup: Hospital: [facility] Visit date: 11/27/24 Symptoms the patient presented [...] pts has a direct number to his casework manager. she is going to call her when [...] q6hr for wheezing, 60 EA, Refill(s) 0, [facility]/pharmacy #[id number], 172, cm, 12/05/24 11:09:00 EDT, Height/Length Dosing, 84.6, kg, 12/05/24 11:09:00 EDT, Weight Dosing predniSONE, See Instructions, TAKE 3 TABLETS X 3 DAYS, 2 TABLETS X 3 DAYS, THEN 1 TABLET X 3 DAYS, # 18 tab(s), Refills(s) 2, Pharmacy: [facility]/pharmacy #[id number], 172, cm, 12/05/24 11:09:00 EDT, Height/Length Dosing, 84.6, kg, 12/05/24 11:09:00 EDT, Weight Dosing Follow-up No qualifying data available Problem List/Past Medical History Ongoing Arthritis BMI 31.0-31.9,adult BPH with urinary obstruction Encounter to establish care Fever Flank pain Former smoker Gout Head injury History of kidney stones Hospital discharge follow-up Hx of skilled nursing use of blood thinners Kidney stones Microhematuria [...] virus vaccine, inactivated 03/14/2017 Recorded Normal [facility] Comment on above: Result Comment: Elec tronically Signed By: Carlos Sethi\Rockybr\Date and Time Signed: 12/05/24 15:02 EDT [place]ek[place] 11-28-2024 MILLIE Telephone (RADTSA) -------- JATIN KOCH ([id number]) 1960 M Date Time Provider Department 11/28/24 [...] Status:Closed by SHARON VÁSQUEZ on 11/29/24 Normal [facility] CNNURSEon 11-27-2024 CNNURSE Nurse Visit (HEMASA) -------- JATIN KOCH ([id number]) 1960 M Date Time Provider Department 11/27/24 9:00 AM TIFFANIE HARGROVE During your visit today, we recorded the following information about you: Eloy Lucas RP 11/27/2024 11:40 AM Signed [facility] Department of Pharmacy Oncology Pharmacy Medication [...] accordingly. Allergies: Patient confirmed allergies documented in [facility] are correct: Yes Was medication education [...] minute increments) with the patient Eloy Lucas [facility] Eloy Lucas [facility] 11/27/2024 11:45 AM Signed Addended by: ELOY LUCAS on: 11/27/2024 11:45 AM Modules accepted: Eloy Ohara [facility] 11/27/2024 11:58 AM Signed Addended by: ELOY [...] Written mat (more content not included)... 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 He is running fevers, getting chills,and diuretic episodes She stated the doxycyline is not working [phone] Nancy Murphy, RN 11/27/2024 1:47 PM Addendum [...] Encounter Status:Closed by NANCY FERRER on 11/27/24 [facility] Telephone (HEMASA) -------- JATIN KOCH ([id number]) 1960 M Date Time Provider Department 11/27/24 [...] Fully Assessed Reason for Visit: Care Coordination [5521] Cmt: Clinical update Primary Visit Diagnosis:Malignant neoplasm of lower lobe of right lung (HCC) [C34.31] Order(s):CT BRAIN WO SKINNY [[id number]] Order #: [id number] FUTURE Prescriptions as of 11/27/2024 - prochlorperazine [...] [facility] CNPN Telephone (PULMMN) -------- JATIN KOCH ([id number]) 1960 M Date Time Provider Department 11/27/24 IRA TAPIA During your visit today, we recorded the following information about you: Ira Tapia MD 11/27/2024 6:10 PM Signed Recived outside call Eulalio Porras. Patient presented to [facility] ED w/ 5 days of fever. [...] Status:Closed by IRA TAPIA on 11/27/24 Normal [facility] Folate [Mass/Vol] 14.7 ng/mL Normal >4.7 [facility] Comment on above: Order Comment: Speci men Type: BLOOD SPECIMENOrdering Facility: [facility] Address: [address] [place] [address] [place] [address] Performed By: #### 5 0190-8, 2132-9, 2284-8 ####[facility] LABCLIA [id number] [place] [address] [place] Iron and Iron binding capaci ty panelon 06-16-2025 Iron [Mass/Vol] 32 ug/dL Low 41-186 [facility] Comment on above: Order Comment: Speci men Type: BLOOD SPECIMENOrdering Facility: [facility] Address: [address] [place] [address] Performed By: #### 5 0190-8, 2132-02, 2284-01 ####[facility] LABCLIA [id number] [place] [address] [place] Iron binding capacity [Mass/Vol] 264 ug/dL Normal 232-386 [facility] Comment on above: Order Comment: Speci men Type: BLOOD SPECIMENOrdering Facility: [facility] Address: [address] [place] [address] Performed By: #### 5 0190-8, 2132-02, 2284-01 ####[facility] LABCLIA [id number] [place] [address] [place] Iron/TIBC [Molar ratio] 12.1 % Low 15.0-57.0 [facility] Comment on above: Order Comment: Speci men Type: BLOOD SPECIMENOrdering Facility: [facility] Address: [address] [place] [address] Performed By: #### 5 0190-8, 2132-02, 2284-01 ####[facility] LABCLIA [id number] [place] [id number] [place] Vit B12 [facility] 11-27- 025 Cobalamin (Vitamin B12) [Mass/Vol] 782 pg/mL Normal 232-1245 [facility] Comment on above: Order Comment: Speci men Type: BLOOD SPECIMENOrdering Facility: [facility] Address: [address] [place] [address] Performed By: #### 5 0190-8, 2132-02, 2284-01 ####[facility] LABCLIA [id number] [place] [id number] [place] CNPAlexandra 11-23-2024 CNPN Telephone (PULMMN) -------- AUGUSTJATIN ([id number]) 1960 M Date Time Provider Department 11/23/24 FATOU JANELL PULAkosua During your visit today, we recorded the following information about you: Janell An 11/23/2024 9:35 AM Signed Patient has a string cough but unable to cough up mucous. Patient would like saline for nebulizer sent to [facility] at [address] [place] [address] in [place] [address] Allergies As of Date: 11/23/2024 Noted Allergy [...] Encounter Status:Closed by JANELL AN on 11/28/24 [facility] Telephone (RADTSA) -------- JATIN KOCH ([id number]) 1960 M Date Time Provider Department 11/23/24 [...] pending but would like them done at [facility]-no orders in [facility]. She also asked about a CT chest with IV contrast being ordered-no orders in [facility]. She said he is to have labs per Dr. Perez and is wondering if he can have those drawn at [facility] as well. Patient is currently scheduled for SIM today with Dr. Lizama. Please advise: Does patient need PFT's and/or CT chest? Can patient have Foundation one and other ordered labs at [facility] or do they need done at [facility]? [...] this a.m.? PSS: Please schedule PFT's at [facility] per patient request. These need scheduled [...] aware that Dr. Lizama will be in [place] on 11/27 and 11/28. PRITI Gonzalez Courtney [...] for Visit: Patient Update [1234] Patient Question [1317] Primary Visit Diagnosis:Malignant neoplasm of lower lobe of right lung (HCC) [C34.31] Order(s):SPIROMETRY BASELINE ONLY [[id number]] Order #: [id number]: 1 FUTURE Prescriptions as of 11/23/2024 - [...] TENDINITIS SHL (more content not included)... 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 Denies any SOB, CP, weakness or syncopal episodes. Does have a frequent dry cough today, no fevers, had some blood tinged sputum yesterday and late last night, none today. he is going to [facility] for an x-ray when his gets home today to check for pacemaker lead placement, was told Communication Events Date: November 21, 2024 Method: Phone call Type: Outbound Duration (min): 15 Outcome: Case discussion Contact Type: manager global communicationsjunior project manager Name: Tamiko Sadler LPN Notes: -- Created [...] and not able to finish note. Normal [facility] XR CHEST 2 VWSon 11-21-2024 XR [...] MD on 11/21/2024 10:29 PM Normal [facility] ANES POSTPROC EVALon 025 ANES POSTPROC EVAL HNO ID: [id number] Author: AZALEA MEJÍA MD Service: ? Author Type: Anesthesiologist Type: Anesthesia Postprocedure Evaluation Filed: 11/20/2024 13:23 Note Text: POST ANESTHESIA EVALUATION NOTE : 1960 Procedure Summary Date: 11/20/24 Room / Location: [place] [address] / [facility] H23 Anesthesia Start: 1049 Anesthesia Stop: 1220 [...] November 20, 2024 TIME: 1:23 PM CSN: [id number] Normal [facility] ANES PRE-OPon 11-20-2024 ANES PRE-OP HNO ID: [id number] Author: AZALEA MEJÍA MD Service: ? Author Type: Anesthesiologist Type: Anesthesia Preprocedure Evaluation Filed: 11/20/2024 10:53 Note Text: ANESTHESIOLOGY DAY OF SURGERY NOTE : 1960 Procedure Information Anesthesia Start Date/Time: 11/20/24 1049 Procedure: BRONCHOSCOPY FLEXIBLE ADULT (Bronchus) - Tier 2 Therapeutic Bronch Add't Notes to Legal Adviser Pacemaker Nurse Called before procedure Location: PULM [...] and consent discussed: yes. Patient / Responsible Democrat agrees to proceed: yes Patient / Surrogate [...] ?F) 11/20/24 0953 SpO2 97 % 11/20/24 0910 No current facility-administered medications on file as [...] November 20, 2024 TIME: 10:52 AM CSN: [id number] Normal [facility] Bacteria Spec Resp Culton Bacteria identified Respiratory [...] , Intermediate >4 , Resistant >8 Abnormal [facility] Comment on above: Performed By: #### 3 2355-0 ####[facility] LABCLIA [id number] [address] OF [facility] Bekah 11-20-2024 ABBEYN Telephone (SANGITAMN) -------- JATIN KOCH ([id number]) 1960 M Date Time Provider Department 11/20/24 [...] device clinic and faxed report over to [phone] Allergies As of Date: 11/20/2024 Noted Allergy [...] Status:Closed by RADHA AUGUSTIN on 11/20/24 Normal [facility] NURSING PROGon 11-20-2024 NURSING PROG HNO ID: [id number] Author: BEATRIZ TERESA RN Service: ? Author [...] Electronically Signed By: Beatriz Teresa RN Normal [facility] PD-L1 22C3on 11-20-2024 AP BIOMARKER DISCLAIMER Normal [facility] Comment on above: Order Comment: Speci men Type: TISSUE SPECIMENOrdering Facility: [facility] Address: [address] [place] [address] Result Comment: Laboratory Developed Test (LDT) Disclaimer: Performance characteristics of immunohistochemical, immunofluorescent and chromogenic in-situ hybridization tests have been determined by the performing laboratory within [facility]???[facility] Pathology and Laboratory Medicine Department ([facility], [facility], [facility], [facility], [facility], [facility], or [facility]) in a manner consistent with CLIA requirements. One or more of these tests have not been cleared or approved by the FDA. [facility] is regulated under CLIA as qualified to perform high-complexity testing. These tests are used for clinical purposes. They should not be regarded as investigational or for research. Positive and negative controls stain appropriately. Performed By: #### L [id number] ####[facility] LABCLIA [id number] [place] [address] [place] AP BLOCK ID A1 Normal [facility] Comment on above: Order Comment: Speci men Type: TISSUE SPECIMENOrdering Facility: [facility] Address: [address] [place] [address] Performed By: #### L [id number] ####[facility] LABCLIA [id number] [address] BIOMARKER INTERPRETATION COMMENT AND REFERENCE RANGE Normal [facility] Comment on above: Order Comment: Speci men Type: TISSUE SPECIMENOrdering Facility: [facility] Address: [address] [place] [address] Result Comment: Inte rpretation standard: TPS: The [...] Product label for additional information. KEYTRUDA - (https://www.Dinnr.com/prescribing-information/) LIBTAYO - (https://www.Mailcloud/sites/default/files/Libtayo_FPI.pdf) Performed By: #### L [id number] ####[facility] LABIA [id number] [address] BIOMARKER METHOD Immunohistochemistry was performed on formalin fixed paraffin-embedded tissue using the mouse monoclonal antibody 22C3 ([employer]; [place], [place]) followed by ultrasensitive bright field detection (Optiview with amplification [[employer], [place]]). Normal [facility] Comment on above: Order Comment: Speci men Type: TISSUE SPECIMENOrdering Facility: [facility] Address: [address] [place] [address] Performed By: #### L [id number] ####[facility] [id number] [address] OF [facility] CASE NUMBER PD-L1 [id number] Normal [facility] Comment on above: Order Comment: Speci men Type: TISSUE SPECIMENOrdering Facility: [facility] Address: [address] [place], [place] [address] Performed By: #### L [id number] ####[facility] LABCLIA [id number] [address] [address] [place] FINAL PERFORMING LAB Normal [facility] Comment on above: Order Comment: Speci men Type: TISSUE SPECIMENOrdering Facility: [facility] Address: [address] [place] [address] Result Comment: Diag nostic interpretation performed at: [facility], [address] [place] [address] [place] [address] CLIA# [id number] Front Desk Worker: Padilla López MD Electronically signed out by: William Araujo MD Performed By: #### L [id number] ####[facility] LABCLIA [id number] [place] [address] [place] Result Comment: Diag nostic interpretation performed at: [facility], [address] [place], [place] [address] CLIA# [id number] Front Desk Worker: Padilla López MD Performed By: #### 6 6121-5 ####[facility] LABCLIA [id number] [place] [id number] [place] FIXATIVE Formalin, 10% Neutra l Buffered Normal [facility] Comment on above: Order Comment: Speci men Type: TISSUE SPECIMENOrdering Facility: [facility] Address: [address] [place] [address] Performed By: #### L [id number] ####[facility] LABCLIA [id number] [place] [id number] [place] PD-L1 22C3 TPS (LUNG) INTERPRETATION Negative Normal [facility] Comment on above: Order Comment: Speci men Type: TISSUE SPECIMENOrdering Facility: [facility] Address: [address] [place] [address] Performed By: #### L [id number] ####[facility] LABCLIA [id number] [address] OF [place] PD-L1 TUMOR TYPE Other (See Comment) Normal [facility] Comment on above: Order Comment: Speci men Type: TISSUE SPECIMENOrdering Facility: [facility] Address: [address] [place] [address] Performed By: #### L [id number] ####[facility] LABIA [id number] [address] TUMOR PROPORTION SCORE (TPS) 0 Normal [facility] Comment on above: Order Comment: Speci men Type: TISSUE SPECIMENOrdering Facility: [facility] Address: [address] [place] [address] Performed By: #### L [id number] ####[facility] [id number] [address] [place] Pathology biopsy report Meño (Tiss)on 11-20-2024 ADDENDUM 1: Normal [facility] Comment on above: Order Comment: Speci men Type: TISSUE SPECIMENOrdering Facility: [facility] Address: [address] [place] [address] Result Comment: This addendum is issued to report that an immunohistochemical stain for p40 was performed to confirm the squamous immunophenotype of the tumor cells, which are diffusely positive for this marker. The above diagnosis remains unchanged. 11/24/2024 Laboratory Developed Test (LDT) Disclaimer: Performance characteristics of immunohistochemical, immunofluorescent and chromogenic in-situ hybridization tests have been determined by the performing laboratory within [facility]???s [facility] Pathology and Laboratory Medicine [place] ([facility], [facility], [facility] or [facility]) in a manner consistent with CLIA requirements. [...] 1049 EDT Performed By: #### 6 6121-5 ####[facility] LABIA [id number] [place] [address] [place] AP DISCLAIMER Normal [facility] Comment on above: Order Comment: Speci men Type: TISSUE SPECIMENOrdering Facility: [facility] Address: [address] [place] [address] Result Comment: Babita carter Developed Test (LDT) Disclaimer: Performance characteristics of immunohistochemical, immunofluorescent, and chromogenic in-situ hybridization tests have been determined by the performing laboratory within [facility]'s [facility] Pathology and Laboratory Medicine Department ([facility], [facility], [facility], [facility], [facility], [facility], or [facility]) in a manner consistent with CLIA requirements. One or more of these tests may not have been cleared or approved by the FDA. [facility] is regulated under CLIA as qualified to perform high-complexity testing. These tests are used for clinical purposes. These should not be regarded as investigational or for research. Positive and negative controls stain appropriately. Performed By: #### 6 6121-5 ####[facility] LABIA [id number] [place] [address] [place] CASE REPORT Normal [facility] Comment on above: Order Comment: Speci men Type: TISSUE SPECIMENOrdering Facility: [facility] Address: [address] [place] [address] Result Comment: Surg [facility] Pathology Report Case: [id number] Authorizing Provider: Regina Robertson MD Collected: 11/20/2024 11:10 AM Ordering Location: Admitting Received: 11/20/2024 03:27 PM Pathologist: William Araujo V, MD Specimen: Lung, Right, Biopsy, BI EBBX Performed By: #### 6 6121-5 ####[facility] LABIA [id number] [place] [id number] [place] CLINICAL HISTORY Normal [facility] Comment on above: Order Comment: Ange hull Type: TISSUE SPECIMENOrdering Facility: [facility] Address: [address] [place] [address] Result Comment: Pre- op diagnosis: 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 PR/ 11/21/2024 at 1050 EDT Performed By: #### 6 6121-5 ####[facility] LABIA [id number] [address] OF [facility] GROSS DESCRIPTION Normal [facility] Comment on above: Order Comment: Ange hull Type: TISSUE SPECIMENOrdering Facility: [facility] Address: [address] [place] [address] Result Comment: Geovanny lopez, Right, Biopsy Received in formalin are multiple pieces of cardenas-red, soft tissue aggregating to 2.1 x 0.6 x 0.1 cm. Totally submitted in one cassette. Gross examination performed at [facility], [address] [place] [address] November 20, 2024 6:23 PM Performed By: #### 6 6121-5 ####[facility] LABIA [id number] [address] [place] CNOVon 11-17-2024 CNOV Office Visit (RADTSA ) -------- JATIN KOCH ([id number]) 1960 M Date Time Provider Department 11/17/24 [...] the Department of Radiation Oncology at the [facility] with Ezra Lizama MD. He was accompanied [...] improvement, his scheduled an appointment with a boom operator, who ordered a CT scan with contrast. [...] retention Zapata (more content not included)... Normal [facility] CNOVSPon 11-17-2024 CNOVSP Visit (SP) Office (HEMASA) -------- JATIN KOCH ([id number]) 1960 M Date Time Provider Department 11/17/24 2:00 PM KVNG PEREZ During your visit today, we recorded the following information about you: Temperature Pulse Respiration Blood pressure 98 degrees 105/minute 16/minute 100/67 Weight Height 86.9 kg 1.695 m Kvng Perez MD 11/17/2024 3:17 PM Addendum PATIENT NAME: Jatin Koch II CLINIC NO.: [id number] ATTENDING PHYSICIAN: Kvng Perez MD DATE OF SERVICE: 11/17/[address] Chip Carbajal [address] [place] [address] thank you for referring Jatin Koch II [...] pk/day for 40yrs. 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 C/o hemoptysis. C/o [...] Extremities: N (more content not included)... Normal [facility] 11-17-2024 [facility] JATIN KOCH ([id number]) 1960 M Date Time Provider Department 11/17/24 KVNG PEREZ [facility] During your visit today, we recorded the [...] SIM was rescheduled to 11/30. Radha Perdue MannjeanneRadha 11/29/2024 4:02 PM Signed SIM [...] Encounter Status:Closed by RADHA PERDUE on 12/12/24 [facility] -------- JATIN KOCH ([id number]) 1960 M Date Time Provider Department 11/17/24 EZRA LIZAMA During your visit today, we recorded the following information about you: Richardson Cantu RN 11/17/2024 2:34 PM Signed PSS/RT: please schedule SIM 11/23 treating lung with IV contrast, esophageal contrast, 4DCT Consent signed Needs nurse appt for IV start day of SIM Nurse ed today Plastics Production Machine Operator consult(order pending signature) Thanks PRITI Gonzalez Denise A, Tech 11/17/2024 3:12 PM Signed PSS- I scheduled Lung Sim on 11/23/2024 at 3:00pm Nurse visit at 2:45pm for IV contrast Arrival time of 2:30pm, No special instructions. Thank you, Richardson Saucedo RN 11/17/2024 4:01 PM Signed Patient states he has already met with the contact lens flashing puncher and has upcoming follow up. PRITI Gonzalez [...] Status:Closed by RICHARDSON CANTU on 11/20/24 Normal [facility] CNOVon 11-15-2024 CNOV Office Visit (PMNA11 ) -------- JATIN KOCH ([id number]) 1960 M Date Time Provider Department 11/15/24 [...] Koch II PRIMARY CARE PHYSICIAN: Carlos Collins APRN.SCOUT EXECUTIVE REFERRING PHYSICIAN: Dr. 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 My final recommendations/evaluati on will be communicated back to the requesting physician by way of shared medical record or letter via US mail. Recording using Kamego software for draft documentation of the visit was discussed with the patient/authorized union representative; all questions welcomed and answered. Patient/authorized union representative agreed to proceed CHIEF COMPLAINT: Bronchial [...] improvement, his scheduled an appointment with a boom operator, who ordered a CT scan with contrast. [...] metoprolol succinat (more content not included)... Normal [facility] NURSING PROGon 06-02-2025 NURSING PROG HNO ID: [id number] Author: CATHIE SHAFFER RN Service: Nursing Author [...] minutes. 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 Patient denies any SOB, breathing difficulties, or chest discomfort. Denies weakness. Notes he had a PCM inserted at [facility] last and that it went without complications. Patient does report some discomfort from procedure, as to be excpeted. Notes he has follow ups in place for PCM. Patient reports he feels 'a lot better now.' Reports BP is 'fantastic.' Patient has a consult with [facility]monary on 11/15/24 and is scheduled for out patient surgery on 11/20/24, having right lung mass removed at [facility]. Patient denies any further questions or concerns at this time and is appreciative of follow up call. Communication Events Date: November 13, 2024 Method: Phone call Type: Outbound Duration (min): 7 Outcome: Case discussion Contact Type: Patient Contact Name: JEFFREYWALE COTY JATIN Suly Notes: TCM#2- see tcm note. Created By: Gordo Humphries [facility] CBC WITH AUTO DIFFERENTIALon 11-09-2024 CELLAVISION DIFFERENTIAL TYPE CELLAVISION DIFFERENTIAL Normal [facility] Comment on above: Result Comment: This is an appended report. These results have been appended to a previously preliminary verified report. Performed By: #### C BCA #### [facility] (TT) [address] [place] [address] VIR CELLAVISION EOSINOPHILS ABSOLUTE COUNT (10*3/UL) BY MANUAL COUNT 0.2 10*3/uL Normal 0.0-0.4 [facility] Comment on above: Result Comment: This is an appended report. These results have been appended to a previously preliminary verified report. Performed By: #### C BCA #### [facility] ([facility]) [address] [place] [address] VIR CELLAVISION EOSINOPHILS PERCENT BY MANUAL COUNT 1 % Normal [facility] Comment on above: Result Comment: This is an appended report. These results have been appended to a previously preliminary verified report. Performed By: #### C BCA #### [facility] ([facility]) [address] [place] [address] VIR CELLAVISION LYMPHOCYTES ABSOLUTE COUNT (10*3/UL) BY MANUAL COUNT 1.8 10*3/uL Normal 1.0-3.5 [facility] Comment on above: Result Comment: This is an appended report. These results have been appended to a previously preliminary verified report. Performed By: #### C BCA #### [facility] ([facility]) [address] [place] [address] VIR CELLAVISION LYMPHOCYTES RELATIVE PERCENT BY MANUAL COUNT 11 % Normal [facility] Comment on above: Result Comment: This is an appended report. These results have been appended to a previously preliminary verified report. Performed By: #### C BCA #### [facility] ([facility]) [address] [place] [address] VIR CELLAVISION METAMYELOCYTES RELATIVE PERCENT BY MANUAL COUNT 2 % Normal [facility] Comment on above: Result Comment: This is an appended report. These results have been appended to a previously preliminary verified report. Performed By: #### C BCA #### [facility] ([facility]) [address] [place] [address] VIR CELLAVISION MONOCYTES ABSOLUTE COUNT (10*3/UL) IN BLOOD BY MANUAL COUNT 1.8 10*3/uL High 0.0-0.9 [facility] Comment on above: Result Comment: This is an appended report. These results have been appended to a previously preliminary verified report. Performed By: #### C BCA #### [facility] ([facility]) [address] [place] [address] VIR CELLAVISION MONOCYTES RELATIVE PERCENT BY MANUAL COUNT 11 % Normal [facility] Comment on above: Result Comment: This is an appended report. These results have been appended to a previously preliminary verified report. Performed By: #### C BCA #### [facility] ([facility]) [address] [place] [address] VIR CELLAVISION MYELOCYTE RELATIVE PERCENT BY MANUAL COUNT 1 % Normal [facility] Comment on above: Result Comment: This is an appended report. These results have been appended to a previously preliminary verified report. Performed By: #### C BCA #### [facility] ([facility]) [address] [place] [address] VIR CELLAVISION NEUTROPHILS ABSOLUTE COUNT BY MANUAL COUNT 11.5 10*3/uL High 1.5-6.6 [facility] Comment on above: Result Comment: This is an appended report. These results have been appended to a previously preliminary verified report. Performed By: #### C BCA #### [facility] ([facility]) [address] [place] [address] VIR CELLAVISION NEUTROPHILS RELATIVE PERCENT BY MANUAL COUNT 73 % Normal [facility] Comment on above: Result Comment: This is an appended report. These results have been appended to a previously preliminary verified report. Performed By: #### C BCA #### [facility] ([facility]) [address] [place] [address] VIR CELLAVISION RBC MORPHOLOGY Normal Normal [facility] Comment on above: Result Comment: This is an appended report. These results have been appended to a previously preliminary verified report. Performed By: #### C BCA #### [facility] ([facility]) [address] [place] [address] VIR Erythrocyte distribution width (RBC) [Ratio] 16.5 % High 11.5-15 [facility] Comment on above: Performed By: #### C BCA #### [facility] ([facility]) [address] [place] [address] VIR Hematocrit (Bld) [Volume fraction] 35.1 % Low 39-50 [facility] Comment on above: Performed By: #### C BCA #### [facility] ([facility]) [address] [place] [address] VIR Hemoglobin (Bld) [Mass/Vol] 11.7 g/dL Low 13-17 [facility] Comment on above: Performed By: #### C BCA #### [facility] ([facility]) [address] [place] [address] VIR MCH (RBC) [Entitic mass] 27.6 pg Normal 27-34 [facility] Comment on above: Performed By: #### C BCA #### [facility] ([facility]) [address] [place] [address] VIR MCHC (RBC) [Mass/Vol] 33.4 g/dL Normal 32-36 [facility] Comment on above: Performed By: #### C BCA #### [facility] ([facility]) [address] [place] [address] VIR MCV (RBC) [Entitic vol] 83 fL Normal 80-100 [facility] Comment on above: Performed By: #### C BCA #### [facility] ([facility]) [address] [place] [address] VIR Platelet mean volume (Bld) [Entitic vol] 6.9 fL Low 7-12 [facility] Comment on above: Performed By: #### C BCA #### [facility] ([facility]) [address] [place] [address] VIR Platelets (Bld) [#/Vol] 254 10*3/uL Normal 150-450 [facility] Comment on above: Performed By: #### C BCA #### [facility] ([facility]) [address] [place] [address] VIR RBC COUNT 4.25 X10E12/L Normal 4.1-5.7 [facility] Comment on above: Performed By: #### C BCA #### [facility] ([facility]) [address] [place] [address] VIR WBC (Bld) [#/Vol] 15.7 10*3/uL High 4-11 [facility] Comment on above: Performed By: #### C BCA #### [facility] ([facility]) [address] [place] [address] VIR COMPREHENSIVE METABOLIC PANE Paul 11-09-2024 Albumin [Mass/Vol] 3.4 g/dL Normal 3.2-5.3 [facility] Comment on above: Performed By: #### C MP #### [facility] ([facility]) [address] [place] [address] VIR ALP [Catalytic activity/Vol] 53 U/L Normal 39-130 [facility] Comment on above: Performed By: #### C MP #### [facility] ([facility]) [address] [place] [address] VIR ALT [Catalytic activity/Vol] 26 U/L Normal <=40 [facility] Comment on above: Performed By: #### C MP #### [facility] ([facility]) [address] [place] [address] VIR Anion gap [Moles/Vol] 10 mmol/L Normal 5-15 [facility] Comment on above: Performed By: #### C MP #### [facility] ([facility]) [address] [place] [address] VIR AST [Catalytic activity/Vol] 13 U/L Normal <=41 [facility] Comment on above: Performed By: #### C MP #### [facility] ([facility]) [address] [place] [address] VIR Bilirubin [Mass/Vol] 0.4 mg/dL Normal 0.3-1.2 [facility] Comment on above: Performed By: #### C MP #### [facility] ([facility]) [address] [place] [address] VIR Calcium [Mass/Vol] 8.6 mg/dL Normal 8.5-10.5 [facility] Comment on above: Performed By: #### C MP #### [facility] ([facility]) [address] [place] [address] VIR Chloride [Moles/Vol] 100 mmol/L Normal 98-109 [facility] Comment on above: Performed By: #### C MP #### [facility] ([facility]) [address] [place] [address] VIR CO2 [Moles/Vol] 28 mmol/L Normal 22-32 [facility] Comment on above: Performed By: #### C MP #### [facility] ([facility]) [address] [facility] [address] [place] [address] VIR Creatinine [Mass/Vol] 0.65 mg/dL Normal 0.60-1.30 [facility] Comment on above: Result Comment: METH OD TRACEABLE TO IDMS STANDARD Performed By: #### C MP #### [facility] ([facility]) [address] [place] [address] VIR EGFR (CKD-EPI) NON-RACE DEPENDENT >^90 Normal >=60 [facility] Comment on above: Result Comment: Repo rted eGFR is based on the CKD-EPI 2020 equation that does not use a race coefficient. Performed By: #### C MP #### [facility] ([facility]) [address] [place] [address] VIR Glucose [Mass/Vol] 104 mg/dL High 65-99 [facility] Comment on above: Performed By: #### C MP #### [facility] ([facility]) [address] [place] [address] VIR Potassium [Moles/Vol] 4.2 mmol/L Normal 3.5-5.0 [facility] Comment on above: Performed By: #### C MP #### [facility] ([facility]) [address] [place] [address] VIR Protein [Mass/Vol] 5.8 g/dL Low 6.0-8.0 [facility] Comment on above: Performed By: #### C MP #### [facility] ([facility]) [address] [place] [address] VIR Sodium [Moles/Vol] 138 mmol/L Normal 134-146 [facility] Comment on above: Performed By: #### C MP #### [facility] ([facility]) [address] [place] [address] VIR Urea nitrogen [Mass/Vol] 25 mg/dL Normal 5-27 [facility] Comment on above: Performed By: #### C MP #### [facility] ([facility]) [address] [place] [address] VIR LACTATE W/ REFLEXon 11-10-19 25 LACTATE W/REFLEX 1.1 mmol/L Normal 0.4-2.0 [facility] Comment on above: Order Comment: Resul t did not trigger repeat Lactate, re-order if needed. Performed By: #### L ACTS #### [facility] ([facility]) [address] [place] [address] VIR PROCALCITONINon 11-09-2024 PROCALCITONIN 0.08 ng/mL High <0.05 [facility] Comment on above: Order Comment: <0.50 ng/mL - Low risk of severe sepsis and/or septic shock. <2.00 ng/mL - Recommend retesting within 6-24 hours. >2.00 ng/mL - High risk of sepsis and/or septic shock. Performed By: #### P GLENDY #### [facility] ([facility]) [address] [place] [address] VIR XR CHEST 2 VWSon 11-09-2024 XR [...] Colin MD on 11/09/2024 4:20 PM Normal [facility] APTTon 11-08-2024 aPTT Coag (Bld) [Time] 25 s Low 26-37 [facility] Comment on above: Performed By: #### P TT #### [facility] ([facility]) [address] [place] [address]. [place] [address] VIR B-TYPE NATRIURETIC PEPTIDEon 11-08-2024 Natriuretic peptide B (Bld) [Mass/Vol] 64 pg/mL Normal <=100 [facility] Comment on above: Performed By: #### B MANAGER HOTEL #### [facility] ([facility]) [address] [place], [place] [address]. [place] [address] VIR CBC WITH AUTO DIFFERENTIALon 11-08-2024 CELLAVISION BASOPHILS ABSOLUTE COUNT (10*3/UL) BY MANUAL COUNT 0.8 10*3/uL High 0.0-0.2 [facility] Comment on above: Result Comment: This is an appended report. These results have been appended to a previously preliminary verified report. Performed By: #### C BCA #### [facility] ([facility]) [address] [place] [address]. [place] [address] VIR CELLAVISION BASOPHILS RELATIVE PERCENT BY MANUAL COUNT 5 % Normal [facility] Comment on above: Result Comment: This is an appended report. These results have been appended to a previously preliminary verified report. Performed By: #### C BCA #### [facility] ([address] [address] VIR CELLAVISION DIFFERENTIAL TYPE CELLAVISION DIFFERENTIAL Normal [facility] Comment on above: Result Comment: This is an appended report. These results have been appended to a previously preliminary verified report. Performed By: #### C BCA #### [facility] ([address] [address] VIR CELLAVISION EOSINOPHILS ABSOLUTE COUNT (10*3/UL) BY MANUAL COUNT 0.2 10*3/uL Normal 0.0-0.4 [facility] Comment on above: Result Comment: This is an appended report. These results have been appended to a previously preliminary verified report. Performed By: #### C BCA #### [facility] ([address] [address] VIR CELLAVISION EOSINOPHILS PERCENT BY MANUAL COUNT 1 % Normal [facility] Comment on above: Result Comment: This is an appended report. These results have been appended to a previously preliminary verified report. Performed By: #### C BCA #### [facility] ([address] [address] VIR CELLAVISION LYMPHOCYTES ABSOLUTE COUNT (10*3/UL) BY MANUAL COUNT 1.7 10*3/uL Normal 1.0-3.5 [facility] Comment on above: Result Comment: This is an appended report. These results have been appended to a previously preliminary verified report. Performed By: #### C BCA #### [facility] ([address] [address] VIR CELLAVISION LYMPHOCYTES RELATIVE PERCENT BY MANUAL COUNT 9 % Normal [facility] Comment on above: Result Comment: This is an appended report. These results have been appended to a previously preliminary verified report. Performed By: #### C BCA #### [facility] ([facility]) [address] [place] [address] VIR CELLAVISION MONOCYTES ABSOLUTE COUNT (10*3/UL) IN BLOOD BY MANUAL COUNT 0.5 10*3/uL Normal 0.0-0.9 [facility] Comment on above: Result Comment: This is an appended report. These results have been appended to a previously preliminary verified report. Performed By: #### C BCA #### [facility] ([facility]) [address] [place] [address] VIR CELLAVISION MONOCYTES RELATIVE PERCENT BY MANUAL COUNT 3 % Normal [facility] Comment on above: Result Comment: This is an appended report. These results have been appended to a previously preliminary verified report. Performed By: #### C BCA #### [facility] ([address] [address] VIR CELLAVISION NEUTROPHILS ABSOLUTE COUNT BY MANUAL COUNT 14.4 10*3/uL High 1.5-6.6 [facility] Comment on above: Result Comment: This is an appended report. These results have been appended to a previously preliminary verified report. Performed By: #### C BCA #### [facility] ([address] [address] VIR CELLAVISION NEUTROPHILS RELATIVE PERCENT BY MANUAL COUNT 80 % Normal [facility] Comment on above: Result Comment: This is an appended report. These results have been appended to a previously preliminary verified report. Performed By: #### C BCA #### [facility] ([address] [address] VIR CELLAVISION PROMYELOCYTES RELATIVE PERCENT BY MANUAL COUNT 2 % Normal [facility] Comment on above: Result Comment: This is an appended report. These results have been appended to a previously preliminary verified report. Performed By: #### C BCA #### [facility] ([address] [place] [address] VIR Erythrocyte distribution width (RBC) [Ratio] 16.7 % High 11.5-15 [facility] Comment on above: Performed By: #### C BCA #### [facility] ([address] [place] [address] VIR Hematocrit (Bld) [Volume fraction] 36.6 % Low 39-50 [facility] Comment on above: Performed By: #### C BCA #### [facility] ([address] [address] VIR Hemoglobin (Bld) [Mass/Vol] 12.1 g/dL Low 13-17 [facility] Comment on above: Performed By: #### C BCA #### [facility] ([address] [address] VIR MCH (RBC) [Entitic mass] 27.6 pg Normal 27-34 [facility] Comment on above: Performed By: #### C BCA #### [facility] ([address] [address] VIR MCHC (RBC) [Mass/Vol] 32.9 g/dL Normal 32-36 [facility] Comment on above: Performed By: #### C BCA #### [facility] ([address] [address] VIR MCV (RBC) [Entitic vol] 84 fL Normal 80-100 [facility] Comment on above: Performed By: #### C BCA #### [facility] ([address] [address] VIR Platelet mean volume (Bld) [Entitic vol] 6.9 fL Low 7-12 [facility] Comment on above: Performed By: #### C BCA #### [facility] ([address] [address] VIR Platelets (Bld) [#/Vol] 281 10*3/uL Normal 150-450 [facility] Comment on above: Performed By: #### C BCA #### [facility] ([address] [place] [address] VIR RBC COUNT 4.37 X10E12/L Normal 4.1-5.7 [facility] Comment on above: Performed By: #### C BCA #### [facility] ([address] [place] [address] VIR WBC (Bld) [#/Vol] 18.0 10*3/uL High 4-11 [facility] Comment on above: Performed By: #### C BCA #### [facility] ([address] [place] [address] VIR COMPREHENSIVE METABOLIC PANE Paul 11-08-2024 Albumin [Mass/Vol] 3.1 g/dL Low 3.2-5.3 [facility] Comment on above: Performed By: #### C MP #### [facility] ([address] [place] [address] VIR ALP [Catalytic activity/Vol] 60 U/L Normal 39-130 [facility] Comment on above: Performed By: #### C MP #### [facility] ([address] [place] [address] VIR ALT [Catalytic activity/Vol] 41 U/L High <=40 [facility] Comment on above: Performed By: #### C MP #### [facility] ([address] [place] [address] VIR Anion gap [Moles/Vol] 9 mmol/L Normal 5-15 [facility] Comment on above: Performed By: #### C MP #### [facility] ([address] [place] [address] VIR AST [Catalytic activity/Vol] 19 U/L Normal <=41 [facility] Comment on above: Performed By: #### C MP #### [facility] ([address] [place] [address] VIR Bilirubin [Mass/Vol] 0.5 mg/dL Normal 0.3-1.2 [facility] Comment on above: Performed By: #### C MP #### [facility] ([address] [place] [address] VIR Calcium [Mass/Vol] 8.5 mg/dL Normal 8.5-10.5 [facility] Comment on above: Performed By: #### C MP #### [facility] ([address] [place] [address] VIR Chloride [Moles/Vol] 96 mmol/L Low 98-109 [facility] Comment on above: Performed By: #### C MP #### [facility] ([address] [place] [address] VIR CO2 [Moles/Vol] 24 mmol/L Normal 22-32 [facility] Comment on above: Performed By: #### C MP #### [facility] ([address] [place] [address] VIR Creatinine [Mass/Vol] 0.84 mg/dL Normal 0.70-1.20 [facility] Comment on above: Result Comment: METH OD TRACEABLE TO IDMS STANDARD Performed By: #### C MP #### [facility] ([address] [place] [address] VIR EGFR (CKD-EPI) NON-RACE DEPENDENT >^90 Normal >=60 [facility] Comment on above: Result Comment: eGFR not reported due to non-numeric value for Creatinine. Reported eGFR is based on the CKD-EPI 2021 equation that does not use a race coefficient. Performed By: #### C MP #### [facility] ([address] [place] [address] VIR Glucose [Mass/Vol] 134 mg/dL High 65-99 [facility] Comment on above: Performed By: #### C MP #### [facility] ([address] [place] [address] VIR Potassium [Moles/Vol] 4.2 mmol/L Normal 3.5-5.0 [facility] Comment on above: Performed By: #### C MP #### [facility] ([address] [place] [place] [address] VIR Protein [Mass/Vol] 6.7 g/dL Normal 6.0-8.0 [facility] Comment on above: Performed By: #### C MP #### [facility] ([address] [place] [address] VIR Sodium [Moles/Vol] 129 mmol/L Low 134-146 [facility] Comment on above: Performed By: #### C MP #### [facility] ([address] [place] [address] VIR Urea nitrogen [Mass/Vol] 30 mg/dL High 5-27 [facility] Comment on above: Performed By: #### C MP #### [facility] ([address] [place] [address] VIR D-DIMERon 11-08-2024 D DIMER 175 ug/mL Normal 1-255 [facility] Comment on above: Result Comment: Resu lts <255 ng/mL DDU: The presensence of a VTE can safely be excluded with a negative D-Dimer result and Wells score. A negative result doesn't exclude the possibility of DIC. The test should be repeated along with other diagnostic tests if the patient's symptoms persist or worsen. Performed By: #### D DMR #### [facility] ([place] [address] [place] [address] VIR Family Medicine Office/Clini c Noteon 11-08-2024 Family Medicine Office/Clinic Note Family Medicine Office/Clinic Note [facility] Staff Jatin is a 64 year old male presenting for ER follow up [facility] Hospital: [facility] Visit date: 11/04/24 Discharge: 11/06/24 Discharge Dx: [...] lung cancer. will be following oncology at [facility] 4. Syncope (R55: Syncope and collapse) pt has halter monitor on is scheduled to see cardiology at 2:40 today 5. BMI 32.0-32.9,adult (Z68.32: Body mass index [BMI] 32.0-32.9, adult) BMI educaiton Ordered: TCM Trans care mgmt 7 day disch [id number] 6. Former smoker (Z87.891: Personal history of nicotine dependence) continue not smoking Ordered: TCM Trans care mgmt 7 day disch [id number] Follow-up No qualifying data available Problem List/Past Medical History Ongoing Arthritis BMI 31.0-31.9,adult BPH with urinary obstruction Encounter to establish care Flank pain Former smoker Gout Head injury History of kidney stones Hospital discharge follow-up Hx of skilled nursing use of blood thinners Kidney stones Microhematuria [...] virus vaccine, inactivated 03/14/2017 Recorded Normal [facility] Comment on above: Result Comment: Elec tronically Signed By: Carlos Sethi.br\Date and Time Signed: 11/08/24 11:40 EDT MAGNESIUMon 11-08-2024 Magnesium [Mass/Vol] 2.1 mg/dL Normal 1.8-2.6 [facility] Comment on above: Performed By: #### M G #### [facility] ([address] [address] VIR POCT EKGOrdered By: Victoria Collado on 11-08-2024 [facility] PROTIME AND INRon 11-08-2024 INR 1.1 Normal 0.9-1.2 [facility] Comment on above: Performed By: #### P INR #### [facility] ([address] [address] VIR PT Coag (PPP) [Time] 12.4 s Normal 9.8-13.2 [facility] Comment on above: Performed By: #### P INR #### [address] [address] VIR THYROID PROFILE INCLUDES TSH FT4on 11-08-2024 Free T4 [Mass/Vol] 0.88 ng/dL Normal 0.61-1.60 [facility] Comment on above: Performed By: #### T HYR #### [facility] ([address] [address] VIR TSH 0.66 uIU/mL Normal 0.49-4.67 [facility] Comment on above: Performed By: #### T HYR #### [facility] ([address] [address] VIR TROP I, HIGH SENSITIVITY 1 H OURon 11-08-2024 TROPONIN I, HIGH SENSITIVITY 4 ng/L Normal <21 [facility] Comment on above: Performed By: #### P TT #### [facility] ([facility]) [address] [place] [address] [place] [address] VIR TROPONIN I, HIGH SENSITIVITY 0 HOURon 11-08-2024 TROPONIN I, HIGH SENSITIVITY 4 ng/L Normal <21 [facility] Comment on above: Performed By: #### T NIHS0 #### [facility]) [address] [place] [address] [place] [address] VIR XR CHEST 1 VWon 11-08-2024 XR [...] Fatima MD on 11/08/2024 5:03 PM Normal [facility]Samtec[facility] -------- JATIN KOCH ([id number]) 1960 M Date Time Provider Department 11/07/24 KVNG PEREZ During your visit today, we recorded the following information about you: Naz Hooks MA 11/07/2024 3:21 PM Signed [place] paperwork completed for family member has been completed and placed in folder to be signed. LUDA Landry Dorothy, MA 11/08/2024 11:25 AM Signed [facility] paperwork signed and original left at front desk worker for Eloy to picking belt operator on Wednesday. Original placed in scanning. Mamie Zepeda MA Allergies As of Date: 11/07/2024 Noted Allergy Reaction SULFAMETHOXAZOLE 10/25/2024 14 - Other: See Comments 16 - Unknown SULFAMETHOXAZOLE-TRIMETH OPRIM 12/17/2016 14 - Other: See Comments CODEINE 10/25/2024 14 - Other: See Comments Date Reviewed: 2024 Reviewed by: Jesusita Pabon RD - Fully Assessed Reason for Visit: [facility] Paperwork [9263] Prescriptions as of 11/08/2024 - fluticasone propionate [...] Encounter Status:Closed by MAMIE ZEPEDA on 11/08/24 [facility] Telephone (HEMASA) -------- AUGUSTJATIN ([id number]) 1960 M Date Time Provider Department 11/07/24 MANDA MARIE During your visit today, we recorded the following information about you: Manda Marie RN 11/07/2024 4:28 PM Signed Pt was in ER at [facility] twice over the weekend. First pt diagnosed with vertigo and sent home on Meclizine. Pt became bradycardic and was then admitted to [facility] with bradycardia and pneumonia. Pt discharged home [...] Encounter Status:Closed by MANDA MARIE on 11/07/24 [facility] 11[facility]01-2024 [facility]HE[facility] -------- JATIN KOCH ([id number]) 1960 M Date Time Provider Department 11/01/24 MANDA MARIE During your visit today, we recorded the following information about you: Manda Marie RN 11/01/2024 3:30 PM Addendum Pt reports pt is scheduled at [facility] for a second bronchoscopy 11/20/24 [...] Encounter Status:Closed by MANDA MARIE on 11/01/24 [facility] Telephone ([id number]) -------- JATIN KOCH ([id number]) 1960 M Date Time Provider Department 11/01/24 ROBERT NOLASCO [id number] During your visit today, we recorded the [...] Encounter Status:Closed by ROBERT CANELA on 11/01/24 [facility] CNOVSPon 10-27-2024 CNOVSP Visit (SP) Office (HEMASA) -------- JATIN KOCH ([id number]) 1960 M Date Time Provider Department 10/27/24 [...] PATIENT NAME: Jatin Koch II CLINIC NO.: [id number] ATTENDING PHYSICIAN: Kvng Perez MD DATE OF SERVICE: October 27, [address] Chip Carbajal [address] [place] [id number] thank you for referring Jatin Koch II for an opinion regarding Lung cancer. CHIEF COMPLAINT: Lung cancer HPI: Jatin Koch II is a 63 year old year old male with PMH of HTN referred to us for lung cancer. CT chest : PET scan: C/o cough and lost 30lbs. Quit smoking in 2017. Smoked 1 pk/day for 40yrs. 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 C/o hemoptysis. C/o [...] data fou (more content not included)... Normal [facility] Bekah 10-27-2024 [facility] Telephone (PULN) -------- AUGUSTJATIN Tubbs ([id number]) 1960 M Date Time Provider Department 10/27/24 JANELL AN During your visit today, we recorded the following information about you: Janell An 10/27/2024 10:21 AM Signed Referring Physician: Dr. Kvng Perez Address: [facility] Phone #: [phone] Fax #: [phone] Reason for referral: Malignant neoplasm of lower [...] Status:Closed by JANELL AN on 11/28/24 Normal [facility] PET w/ CT Scan Skull Base to [...] a dedicated PET CT unit. Using the environment artist\X2019\s standard software, data were reconstructed using filtered [...] MD Transcribed by: DALLAS Technologist: SIGRID [facility] Pathology Request for Lab Co rpon 10-16-2024 Pathology Request for Lab Kaycee Normal [facility] Comment on above: Order Comment: BRONC H BX Result Comment: See report. Scanned copy available in EMR. PERFORMED BY: [place] [address] PATHOLOGIST CONTRACT ADMINISTRATIVE ASSISTANT ANA LILIA MCLEAN M.D. Performed By: #### P ATH TO [facility] #### [address] Order Comment: CYTOL OGY- BRONCH WASHING Family Medicine Office/Clini c Noteon 10-13-2024 Family Medicine Office/Clinic Note Family Medicine Office/Clinic Note HPI Staff Navarrete is a 63 year old female presenting with Establish Care: History: Any previous diagnosis: HTN, arthritis History of seeing any specialist: [facility] ( [facility]) Urology When was your last doctors visit: June or July Last provider: Alina Cardenas Any recent labs: June or July Health Maintenance UTD: Colonoscopy: 2017- or 2018 PSA: not sure Acute: Current issues/complaints: No refills Had CT done [facility] last Wednesday- found something Biopsy scheduled [...] was previously seen by Alina Ragland in [place]. pt was recently at [facility] ER. Had CT scan of lungs. 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 Normal [facility] Comment on above: Result Comment: Elec tronically Signed By: Carlos Sethi\.lesa\Date and Time Signed: 10/13/24 12:40 EDT URINALYSIS MICROSCOPIC WITH REFLEX CULTUREon 10-07-2024 BACTERIA URINE TRACE Abnormal NONE SEEN #/HPF [facility] BILIRUBIN URINE Negative NEGATIVE [facility] BLOOD URINE TRACE-I NEGATIVE [facility] CAST SEEN? NONE SEEN NONE SEEN #/LPF [facility] Clarity (U) CLEAR CLEAR [facility] Color (U) LT. YELLOW YELLOW [facility] CRYSTALS SEEN? None Seen None Seen #/HPF [facility] GLUCOSE URINE UA Negative NEGATIVE mg/dL [facility] Interpretation and review of laboratory results Abnormal [facility] Ketones Ql (U) TRACE Abnormal NEGATIVE mg/dL [facility] Leukocyte esterase Test strip Ql (U) Negative NEGATIVE [facility] MUCUS URINE NONE SEEN NONE SEEN [facility] NITRITE URINE Negative NEGATIVE [facility] pH (U) 6.0 [pH] 5.0 - 9.0 [facility] PROTEIN URINE Negative NEG/TRACE mg/dL [facility] SPECIFIC GRAVITY URINE 1.010 1.005 - 1.025 [facility] SQUAMOUS EPITHELIAL CELL URINE RARE NONE/RARE #/LPF [facility] TBH RBC 0-2 [facility] WBC 0-2 Abnormal NONE SEEN #/HPF [facility] URINE CULTURE INDICATED NO [facility] UROBILINOGEN URINE 0.2 EU/dL 0.2 - 1.0 EU/dL [facility] Healthcare COVID Cepheidon 09-08-2024 SARS-CoV-2 (COVID-19) RNA SHIRA+probe Ql (Unsp spec) [facility] Antimicrobial susceptibilityon 09-08-2024 SARS-CoV-2 (COVID-19) RNA SHIRA+probe Ql (Unsp spec) Negative [facility] No Panel Informationon 09-08 POC Influenza A (PCR) Positive [facility] POC Influenza B (PCR) Negative [facility] X-ray reportOrdered By: Neri Lewis on 08-31-2024 Study report [facility] [place] [address] XRay Report Signed Patient: Jatin Koch II MR#: [id number] : 1960 Acct:[id number] Age/Sex: 63 / M ADM Date: 5 Loc: XDUC Room: Type: [facility] CLI Attending Dr: Tonja De Oliveira WHOLESALE ACCOUNT MANAGER Copies to: Tonja De Oliveira APRN~ Ordering Provider: Tonja De Oliveira APRN Date of Service: 08/31/24 XR/XR chest 2V*: COUGH Chest 2 views CLINICAL HISTORY: Dry cough for 2 months. COMPARISON: None FINDINGS: Heart normal size. Lungs are clear. No free air. XR/XR chest 2V* IMPRESSION: NO ACUTE CARDIOPULMONARY ABNORMALITY. Impression dictated by: Neftali Lewis Jr., D.O.08/31/2024 10:22 AM Dictation Location: [place] [address] Transcribed By: [facility] 08/31/24 1022 Dictated By: Neftali Lewis Jr, DO 08/31/24 1022 Signed By: 08/31/24 1022 [facility] XR chest 2V*on 08-31-2024 XR chest 2V* [facility] Main [place] [id number] XRay Report Signed Patient: Jatin Koch II MR#: [id number] : 1960 Acct:[id number] Age/Sex: 63 / M ADM Date: 08/31/24 Loc: XDUC Room: Type: [facility] CLI Attending Dr: Tonja De Oliveira WHOLESALE ACCOUNT MANAGER Copies to: Tonja De Oliveira APRN Ordering Provider: Tonja De Oliveira APRN Date of Service: 08/31/24 XR/XR chest 2V*: COUGH Chest 2 views CLINICAL HISTORY: Dry cough for 2 months. COMPARISON: None FINDINGS: Heart normal size. Lungs are clear. No free air. XR/XR chest 2V* IMPRESSION: NO ACUTE CARDIOPULMONARY ABNORMALITY. Impression dictated by: Neftali Lewis Jr., D.O.08/31/2024 10:22 AM Dictation Location: [place] [address] Transcribed By: [facility] 08/31/24 1022 Dictated By: Neftali Lewis Jr, DO 08/31/24 1022 Signed By: 08/31/24 1022 Normal [facility] CBC AUTO DIFFon 11-10-2022 BASO # 0.1 103/ul Normal 0.0-0.1 [facility] Comment on above: Performed By: #### C BC #### [facility] [address] [place] [address] Dr. Jenny Stone Basophils/100 WBC (Bld) 0.6 % Normal 0.2-2.0 [facility] Comment on above: Performed By: #### C BC #### [facility] [address] [place] [address] Dr. Jenny Stone EO # 0.2 103/ul Normal 0.0-0.7 [facility] Comment on above: Performed By: #### C BC #### [facility] [address] [place] [address] Dr. Jenny Stone Eosinophils/100 WBC (Bld) 2.4 % Normal 0.9-7.0 [facility] Comment on above: Performed By: #### C BC #### [facility] [address] [place] [address] Dr. Jenny Stone Erythrocyte distribution width (RBC) [Ratio] 13.0 % Normal 11.0-15.0 [facility] Comment on above: Performed By: #### C BC #### [facility] [address] [place] [address] Dr. Jenny Stone Hematocrit (Bld) [Volume fraction] 46.1 % Normal 42.0-54.0 [facility] Comment on above: Performed By: #### C BC #### [facility] [address] [place] [address] Dr. Jenny Stone Hemoglobin (Bld) [Mass/Vol] 15.2 g/dL Normal 14.0-18.0 [facility] Comment on above: Performed By: #### C BC #### [facility] [address] [place] [address] Dr. Jenny Stone IG # 0.04 10e3/ul Critically high 0.00-0.03 [facility] Comment on above: Performed By: #### C BC #### [facility] [address] [place] [address] Dr. Jenny Stone IG % 0.5 % Normal 0.0-0.5 [facility] Comment on above: Performed By: #### C BC #### [facility] [address] [place] [address] Dr. Jenny Stone LYMPH # 2.5 103/ul Normal 1.2-3.8 [facility] Comment on above: Performed By: #### C BC #### [facility] [address] [place] [address] Dr. Jenny Stone Lymphocytes/100 WBC (Bld) 32.4 % Normal 20.5-60.0 [facility] Comment on above: Performed By: #### C BC #### [facility] [address] [place] [address] Dr. Jenny Stone MANUAL DIFF REQ NO Normal [facility] Comment on above: Performed By: #### C BC #### [facility] [address] [place] [address] Dr. Jenny Stone MCH (RBC) [Entitic mass] 29.6 pg Normal 25.9-34.0 [facility] Comment on above: Performed By: #### C BC #### [facility] [address] [place] [address] Dr. Jenny Stone MCHC (RBC) [Mass/Vol] 33.0 g/dL Normal 29.9-35.2 [facility] Comment on above: Performed By: #### C BC #### [facility] [address] [place] [address] Dr. Jenny Stone MCV (RBC) [Entitic vol] 89.7 fL Normal 80.0-94.0 [facility] Comment on above: Performed By: #### C BC #### [facility] [address] [place] [address] Dr. Jenny Stone MONO # 0.7 103/ul Normal 0.3-0.8 [facility] Comment on above: Performed By: #### C BC #### [facility] [address] [place] [address] Dr. Jenny Stone Monocytes/100 WBC (Bld) 8.6 % Normal 1.7-12.0 [facility] Comment on above: Performed By: #### C BC #### [facility] [address] [place] [address] Dr. Jenny Stone NEUT # 4.3 103/ul Normal 1.4-6.5 [facility] [facility] Comment on above: Performed By: #### C BC #### [facility] [address] [place] [address] Dr. Jenny Stone Neutrophils/100 WBC (Bld) 55.5 % Normal 43.0-75.0 [facility] Comment on above: Performed By: #### C BC #### [facility] [address] [place] [address] Dr. Jenny Stone Platelet mean volume (Bld) [Entitic vol] 9.9 fL Normal 9.5-13.5 [facility] Comment on above: Performed By: #### C BC #### [facility] [address] [place] [address] Dr. Jenny Stone PLT 177 103/ul Normal 150-450 [facility] Comment on above: Performed By: #### C BC #### [facility] [address] [place] [address] Dr. Jenny Stone RBC 5.14 106/ul Normal 4.70-6.10 [facility] Comment on above: Performed By: #### C BC #### [facility] [address] [place] [address] Dr. Jenny Stone WBC 7.8 103/ul Normal 4.0-11.0 [facility] Comment on above: Performed By: #### C BC #### [facility] [address] [address] [address] Jenny Stone LIPID PROFILEon 11-10-2022 CHOL-HDL RATIO NORM SEE BELOW Normal [facility] Comment on above: Result Comment: 3.3 - 4.4 LOW RISK 4.4 - 7.1 AVERAGE RISK 7.1 - 11.0 MODERATE RISK >11.0 HIGH RISK Performed By: #### C MP, LIPID #### [facility] [address] [address] [address] Jenny Stone Cholesterol [Mass/Vol] 203 mg/dL Critically high <=200 [facility] Comment on above: Performed By: #### C MP, LIPID #### [facility] [address] [address] [address] Jenny Stone Cholesterol in HDL [Mass/Vol] 40 mg/dL Normal 40-60 [facility] Comment on above: Performed By: #### C MP, LIPID #### [facility] [address] [address] [address] Jenny Stone Cholesterol in LDL [Mass/Vol] 142.2 mg/dL Normal [facility] Comment on above: Performed By: #### C MP, LIPID #### [facility] [address] [address] [address] Jenny Stone Cholesterol.total/Ch olesterol in HDL [Mass ratio] 5.1 {ratio} Normal [facility] Comment on above: Performed By: #### C MP, LIPID #### [facility] [address] [address] [address] Jenny Stone HDL NORMAL > or = 60 mg/dl - LO W CARDIOVASCULAR RISK <40 mg/dl - HIGH CARDIOVASCULAR RISK Normal [facility] Comment on above: Performed By: #### C MP, LIPID #### [facility] [address] [address] [address] Jenny Stone LDL CALC NORMAL SEE BELOW Normal [facility] Comment on above: Result Comment: <100 mg/dl OPTIMAL 100 - 129 mg/dl NEAR OR ABOVE OPTIMAL 130 - 159 mg/dl BORDERLINE HIGH 160 - 189 mg/dl HIGH >190 mg/dl VERY HIGH Performed By: #### C MP, LIPID #### [facility] [address] [place] [address] Dr. Jenny Stone Triglyceride [Mass/Vol] 104 mg/dL Normal <=150 [facility] Comment on above: Performed By: #### C MP, LIPID #### [facility] [address] [place] [address] Dr. Jenny Stone VLDL CALC 20.8 mg/dL Normal [facility] Comment on above: Performed By: #### C MP, LIPID #### [facility] [address] [place] [address] Dr. Jenny Stone PROF 14(COMP METB)on 023 Albumin [Mass/Vol] 3.9 g/dL Normal 3.4-5.0 [facility] Comment on above: Performed By: #### C MP, LIPID #### [facility] [address] [place] [address] Dr. Jenny Stone Albumin/Globulin [Mass ratio] 1.1 {ratio} Normal [facility] Comment on above: Performed By: #### C MP, LIPID #### [facility] [address] [place] [address] Dr. Jenny Stone ALP [Catalytic activity/Vol] 70 U/L Normal 46-116 [facility] Comment on above: Performed By: #### C MP, LIPID #### [facility] [address] [place] [address] Dr. Jenny Stone ALT [Catalytic activity/Vol] 39 U/L Normal 16-63 [facility] Comment on above: Performed By: #### C MP, LIPID #### [facility] [address] [place] [address] Dr. Jenny Stone Anion gap [Moles/Vol] 14.2 mmol/L Normal [facility] Comment on above: Performed By: #### C MP, LIPID #### [facility] [address] [place] [address] Dr. Jenny Stone AST [Catalytic activity/Vol] 23 U/L Normal 15-37 [facility] Comment on above: Performed By: #### C MP, LIPID #### [facility] [address] [address] [address] Jenny Stone Bilirubin [Mass/Vol] 0.3 mg/dL Normal 0.2-1.0 [facility] Comment on above: Performed By: #### C MP, LIPID #### [facility] [address] [address] [address] Jenny Stone Calcium [Mass/Vol] 8.5 mg/dL Normal 8.5-10.1 [facility] Comment on above: Performed By: #### C MP, LIPID #### [facility] [address] [address] [address] Jenny Stone Chloride [Moles/Vol] 102 mmol/L Normal 98-107 [facility] Comment on above: Performed By: #### C MP, LIPID #### [facility] [address] [place] [address] Dr. Jenny Stone CO2 [Moles/Vol] 30.1 mmol/L Normal 21.0-32.0 [facility] Comment on above: Performed By: #### C MP, LIPID #### [facility] [address] [place] [address] Dr. Jenny Stone Creatinine [Mass/Vol] 1.00 mg/dL Normal 0.70-1.30 [facility] Comment on above: Performed By: #### C MP, LIPID #### [facility] [address] [place] [address] Dr. Jenny Stone EGFR-AF [facility] >60 Normal >=60 [facility] Comment on above: Performed By: #### C MP, LIPID #### [facility] [address] [place] [address] Dr. Jenny Stone EGFR-NON AF [facility] >60 Normal >=60 [facility] Comment on above: Performed By: #### C MP, LIPID #### [facility] [address] [place] [address] Dr. Jenny Stone Globulin (S) [Mass/Vol] 3.5 g/dL Normal [facility] Comment on above: Performed By: #### C MP, LIPID #### [facility] [address] [address] [address] Jenny Stone Glucose [Mass/Vol] 89 mg/dL Normal 74-106 [facility] Comment on above: Performed By: #### C MP, LIPID #### [facility] [address] [address] [address] Jenny Stone Potassium [Moles/Vol] 4.3 mmol/L Normal 3.5-5.1 [facility] Comment on above: Performed By: #### C MP, LIPID #### [facility] [address] [address] [address] Jenny Stone Protein [Mass/Vol] 7.4 g/dL Normal 6.4-8.2 [facility] Comment on above: Performed By: #### C MP, LIPID #### [facility] [address] [place] [address] Dr. Jenny Stone Sodium [Moles/Vol] 142 mmol/L Normal 136-145 [facility] Comment on above: Performed By: #### C MP, LIPID #### [facility] [address] [address] [address] Jenny Stone Urea nitrogen [Mass/Vol] 17.0 mg/dL Normal 7.0-18.0 [facility] Comment on above: Performed By: #### C MP, LIPID #### [facility] [address] [place] [address] Dr. Jenny Stone Urea nitrogen/Creatinine [Mass ratio] 17.0 mg/mg Normal [facility] Comment on above: Performed By: #### C MP, LIPID #### [facility] [address] [place] [address] Dr. Jenny Stone US KIDNEYSon 07-01-2022 US KIDNEYS US KIDNEYS EXAM DATE: 06/30/2022 5:55 AM MST COMPARISON: Ultrasound kidney 05/30/2021 INDICATION: Acquired renal cystic disease. TECHNIQUE: Real-time ultrasound scanning of the kidneys and bladder was performed by the order make up clerk. Chicken Cleaner static images are submitted for review. FINDINGS: [...] by: WEI ASH Date: 2022-06-30 23:29 Normal [facility] XR KUB 1 VIEWon 07-01-2022 [...] by: FREIDA PEREZ Date: 2022-07-01 06:59 Normal [facility] Vital Signs Date Time Vital Sign Value Performing Clinician David richey 12-07-2024 14:31-0400 Body height 172.7 cm Bishop Milan APRN-SCOUT EXECUTIVE Work Phone: [facility] 12-07-2024 14:31-0400 Body mass index (BMI) [Ratio] 28.59 kg/m2 Bishop Bjorn WHOLESALE ACCOUNT MANAGER-SCOUT EXECUTIVE Work Phone: [facility] 12-07-2024 14:31-0400 Body weight 85.28 kg Bishop Milan WHOLESALE ACCOUNT MANAGER-SCOUT EXECUTIVE Work Phone: [facility] 12-07-2024 14:31-0400 Diastolic blood pressure 62 mm[Hg] Bishop Torret WHOLESALE ACCOUNT MANAGER-SCOUT EXECUTIVE Work Phone: [facility] 12-07-2024 14:31-0400 Heart rate 90 /min Bishop Milan WHOLESALE ACCOUNT MANAGER-SCOUT EXECUTIVE Work Phone: [facility] 12-07-2024 14:31-0400 SaO2% (BldA) [Mass fraction] 97 % Bishop Milan WHOLESALE ACCOUNT MANAGER-SCOUT EXECUTIVE Work Phone: [facility] 12-07-2024 14:31-0400 Systolic blood pressure 110 mm[Hg] Bishop Torret WHOLESALE ACCOUNT MANAGER-SCOUT EXECUTIVE Work Phone: [facility] 11-22-2024 12:31-0400 Body height 172.7 cm Bishop Milan WHOLESALE ACCOUNT MANAGER-SCOUT EXECUTIVE Work Phone: [facility] 11-22-2024 12:31-0400 Diastolic blood pressure 50 mm[Hg] Bishop Milan WHOLESALE ACCOUNT MANAGER-SCOUT EXECUTIVE Work Phone: [facility] 11-22-2024 12:31-0400 Heart rate 92 /min Bishop Milan WHOLESALE ACCOUNT MANAGER-SCOUT EXECUTIVE Work Phone: [facility] 11-22-2024 12:31-0400 SaO2% (BldA) [Mass fraction] 98 % Bishop Torret WHOLESALE ACCOUNT MANAGER-SCOUT EXECUTIVE Work Phone: [facility] 11-22-2024 12:31-0400 Systolic blood pressure 108 mm[Hg] Bishop Bjorn WHOLESALE ACCOUNT MANAGER-SCOUT EXECUTIVE Work Phone: [facility] 11-17-2024 14:23-0400 Body height 169.5 cm Kvng Perez MD Work Phone: [facility] 11-17-2024 14:23-0400 Body mass index (BMI) [Ratio] 30.25 kg/m2 Kvng Perez MD Work Phone: [facility] 11-17-2024 14:23-0400 Body temperature 98.01 [degF] Kvng Perez MD Work Phone: [facility] 11-17-2024 14:23-0400 Body weight 86.9 kg Kvng Perez MD Work Phone: [facility] 11-17-2024 14:23-0400 Diastolic blood pressure 67 mm[Hg] Kvng Perez MD Work Phone: [facility] 11-17-2024 14:23-0400 Heart rate 105 /min Kvng Perez MD Work Phone: [facility] 11-17-2024 14:23-0400 Respiratory rate 16 /min Kvng Perez MD Work Phone: [facility] 11-17-2024 14:23-0400 SaO2% (BldA) [Mass fraction] 99 % Kvng Perez MD Work Phone: [facility] 11-17-2024 14:23-0400 Systolic blood pressure 100 mm[Hg] Kvng Perez MD Work Phone: [facility] 11-17-2024 12:59-0400 Body mass index (BMI) [Ratio] 30.25 kg/m2 Ezra Lizama MD Work Phone: [facility] 11-17-2024 12:59-0400 Body weight 86.9 kg Ezra Lizama MD Work Phone: [facility] 11-15-2024 10:37-0400 Body mass index (BMI) [Ratio] 30.53 kg/m2 Regina Robertson MD Work Phone: [facility] 11-15-2024 10:37-0400 Body temperature 97.2 [degF] Regina Robertson MD Work Phone: [facility] 11-15-2024 10:37-0400 Body weight 87.7 kg Regina Robertson MD Work Phone: [facility] 11-15-2024 10:37-0400 Diastolic blood pressure 66 mm[Hg] Regina Robertson MD Work Phone: [facility] 11-15-2024 10:37-0400 Heart rate 85 /min Regina Robertson MD Work Phone: [facility] 11-15-2024 10:37-0400 Respiratory rate 20 /min Regina Robertson MD Work Phone: [facility] 11-15-2024 10:37-0400 SaO2% (BldA) [Mass fraction] 98 % Regina Robertson MD Work Phone: [facility] 11-15-2024 10:37-0400 Systolic blood pressure 111 mm[Hg] Regina Robertson MD Work Phone: [facility] 11-08-2024 14:40-0400 Body height 172.7 cm Jennifer Best MD Work Phone: [facility] 11-08-2024 14:40-0400 Body mass index (BMI) [Ratio] 31.78 kg/m2 Jennifer Best MD Work Phone: [facility] 11-08-2024 14:40-0400 Body weight 94.8 kg Jennifer Best MD Work Phone: [facility] 11-08-2024 14:40-0400 Diastolic blood pressure 72 mm[Hg] Jennifer Best MD Work Phone: [facility] 11-08-2024 14:40-0400 Heart rate 105 /min Jennifer Best MD Work Phone: [facility] 11-08-2024 14:40-0400 SaO2% (BldA) [Mass fraction] 95 % Jennifer Best MD Work Phone: [facility] 11-08-2024 14:40-0400 Systolic blood pressure 104 mm[Hg] Jennifer Best MD Work Phone: [facility] 10-27-2024 08:49-0400 Body height 169.5 cm Kvng Perez MD Work Phone: [facility] Comment on above: verified no shoes 10-27-2024 08:49-0400 Body mass index (BMI) [Ratio] 30.18 kg/m2 Kvng Perez MD Work Phone: [facility] 10-27-2024 08:49-0400 Body temperature 97.7 [degF] Kvng Perez MD Work Phone: [facility] 10-27-2024 08:49-0400 Body weight 86.7 kg Kvng Perez MD Work Phone: [facility] 10-27-2024 08:49-0400 Diastolic blood pressure 64 mm[Hg] Kvng Perez MD Work Phone: [facility] 10-27-2024 08:49-0400 Heart rate 95 /min Kvng Perez MD Work Phone: [facility] 10-27-2024 08:49-0400 Respiratory rate 16 /min Kvng Perez MD Work Phone: [facility] 10-27-2024 08:49-0400 SaO2% (BldA) [Mass fraction] 96 % Kvng Perez MD Work Phone: [facility] 10-27-2024 08:49-0400 Systolic blood pressure 100 mm[Hg] Kvng Perez MD Work Phone: [facility] 09-08-2024 11:32-0400 Body height 172.72 cm Alina Ragland MD Work Phone: [facility] 09-08-2024 11:32-0400 Body mass index (BMI) [Ratio] 31.5 kg/m2 Alina Ragland MD Work Phone: [facility] 09-08-2024 11:32-0400 Body temperature 97.3 [degF] Alina Ragland MD Work Phone: [facility] 09-08-2024 11:32-0400 Body weight 94 kg Alina Ragland MD Work Phone: [facility] 09-08-2024 11:32-0400 Diastolic blood pressure 64 mm[Hg] Alina Ragland MD Work Phone: [facility] 09-08-2024 11:32-0400 Heart rate 115 /min Alina Ragland MD Work Phone: [facility] 09-08-2024 11:32-0400 Respiratory rate 18 /min Alina Ragland MD Work Phone: [facility] 09-08-2024 11:32-0400 SaO2% (BldA) [Mass fraction] 96 % Alina Ragland MD Work Phone: [facility] 09-08-2024 11:32-0400 Systolic blood pressure 91 mm[Hg] Alina Ragland MD Work Phone: [facility] 08-31-2024 09:46-0400 Body height 172.72 cm Alina Ragland MD Work Phone: [facility] 08-31-2024 09:46-0400 Body mass index (BMI) [Ratio] 32.6 kg/m2 Alina Ragland MD Work Phone: [facility] 08-31-2024 09:46-0400 Body temperature 98.8 [degF] Alina Ragland MD Work Phone: [facility] 08-31-2024 09:46-0400 Body weight 97.52 kg Alina Ragland MD Work Phone: [facility] 08-31-2024 09:46-0400 Diastolic blood pressure 64 mm[Hg] Alina Ragland MD Work Phone: [facility] 08-31-2024 09:46-0400 Heart rate 62 /min Alina Ragland MD Work Phone: [facility] 08-31-2024 09:46-0400 Respiratory rate 18 /min Alina Ragland MD Work Phone: [facility] 08-31-2024 09:46-0400 SaO2% (BldA) [Mass fraction] 98 % Alina Ragland MD Work Phone: [facility] 08-31-2024 09:46-0400 Systolic blood pressure 148 mm[Hg] Alina Ragland MD Work Phone: [facility] 06-29-2023 08:51-0500 Diastolic blood pressure 84 mm[Hg] VICTORIA SANDRA [facility] 06-29-2023 08:51-0500 Mean blood pressure 107 mm[Hg] VICTORIA SANDRA [facility] 06-29-2023 08:51-0500 Systolic blood pressure 153 mm[Hg] VICTORIA SANDRA [facility] 06-29-2023 08:41-0500 Blood Pressure Location VICTORIA SANDRA [facility] 06-29-2023 08:41-0500 Diastolic blood pressure 87 mm[Hg] VICTORIA SANDRA [facility] 06-29-2023 08:41-0500 Heart rate 99 /min VICTORIA FLORES [facility] 06-29-2023 08:41-0500 Systolic blood pressure 153 mm[Hg] VICTORIA FLORES [facility] Encounters Encounter Date Encounter Type Care Provider Facility Start: 12-12-2024 End: 12-12-2024 Telephone encounter Tiffanie Hargrove RN Work Phone: Hematology/Oncology Comment on above: Care Coordination (P .T.) Start: 12-11-2024 End: 12-11-2024 Patient encounter procedure [facility] Provider [facility] Department Start: 12-08-2024 End: 12-15-2024 Patient encounter [...] Start: 12-08-2024 End: 12-08-2024 ambulatory CARLOS COLLINS Facility:[facility] Start: 12-07-2024 End: 12-07-2024 Postop follow up visit related to original px Bishop Milan WHOLESALE ACCOUNT MANAGER-SCOUT EXECUTIVE Work Phone: [facility] Comment on above: Pacemaker (Primary D x); AV block; Squamous cell carcinoma of lung, unspecified laterality (CMS-HCC) Start: 12-07-2024 End: 12-07-2024 Clinical Support Ppc Pacer [facility] Comment on above: Pacemaker (Primary D x) Start: 12-07-2024 ambulatory [facility] Facility: [facility] Start: 12-07-2024 End: 12-07-2024 Subsequent hospital visit by physician Arrival Time Radiology Work Phone: Radiology [facility] Comment on above: Malignant neoplasm o f lower lobe of right lung (HCC) [C34.31] Start: 12-05-2024 End: 12-08-2024 Telephone encounter Tiffanie Hargrove RN Work Phone: Hematology/Oncology Comment on above: Care Coordination (C linical update) Start: 12-05-2024 End: 12-05-2024 ambulatory [facility] Facility:[facility] Start: 11-28-2024 End: 11-29-2024 Telephone encounter Ezra Lizama MD Work Phone: Radiation Oncology Comment on above: Patient Update; Futu re Appointment Start: 11-27-2024 End: 11-27-2024 Refill Tiffanie aHrgrove RN Work Phone: Hematology/Oncology Comment on above: [...] visit related to original px Bishop Milan WHOLESALE ACCOUNT MANAGER-SCOUT EXECUTIVE Work Phone: [facility] Comment on above: AV block (Primary Dx ); Squamous cell carcinoma of lung, unspecified laterality (CMS-HCC); Pacemaker Start: 11-22-2024 End: 11-22-2024 Clinical Support Ppc Pacer [facility] Comment on above: Pacemaker- [place] (P rimary Dx) Start: 11-21-2024 End: 11-21-2024 ambulatory [facility] Start: 11-20-2024 End: 11-20-2024 Telephone encounter Radha Augustin RN Cardiology Start: 11-20-2024 End: 11-20-2024 ambulatory REGINA ROBERTSON Facility:[facility] Start: 11-20-2024 End: 11-20-2024 Subsequent hospital visit by physician Regina Robertson MD Work Phone: Cardiology Comment on above: 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] Start: 11-17-2024 End: 11-17-2024 Office outpatient visit 15 minutes Kvng Perez MD Work Phone: Hematology/Oncology Comment on above: Malignant neoplasm o f lower lobe of right lung (HCC) (Primary Dx) Start: 11-17-2024 End: 12-12-2024 Telephone encounter Josseline Stewart RN [facility] Comment on above: Planning radiation t reatments to lung Appointment Start: 11-17-2024 End: 11-17-2024 Patient encounter procedure Ezra Lizama MD Work Phone: Radiation Oncology Comment on above: Malignant neoplasm o f lower lobe of right lung (HCC) Start: 11-17-2024 End: 11-17-2024 ambulatory Richardson Cantu RN Radiation Oncology Comment on above: Patient Education Start: 11-15-2024 ambulatory ALINA RAGLAND [facility] Start: 11-15-2024 End: 11-15-2024 Chart abstracting Bishop Milan WHOLESALE ACCOUNT MANAGER-SCOUT EXECUTIVE Work Phone: [facility] Start: 11-15-2024 End: 11-15-2024 ambulatory CARLOS COLLINS Facility:[facility] Start: 11-15-2024 Encounter for other preprocedural examination CARLOS COLLINS [facility] Start: 11-15-2024 End: 11-15-2024 Patient encounter procedure Regina Robertson MD Work Phone: Pulmonary Medicine Comment on above: 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); Bronchial obstruction Start: 11-15-2024 End: 11-15-2024 ambulatory CARLOS L DENNIS Facility:[facility] Start: 11-09-2024 End: 11-09-2024 ambulatory [facility] Start: 11-09-2024 End: 11-09-2024 Evaluation and management of inpatient IDANIA U BARNEY [facility] Start: 11-08-2024 End: 11-08-2024 Emergency department patient visit [facility] Start: 11-08-2024 End: 11-08-2024 Office outpatient new 60 minutes Jennifer Best MD Work Phone: [facility] Comment on above: Syncope, unspecified syncope type (Primary Dx) Start: 11-08-2024 End: 11-08-2024 ambulatory CÉSARLAI BEST [facility] Start: 11-08-2024 End: 11-08-2024 ambulatory Carlos L Dennis Facility:[facility] Start: 11-07-2024 End: 11-08-2024 Telephone encounter Victoria Collado [facility] Comment on above: [place] Paperwork Start: 11-07-2024 End: 12-12-2024 ambulatory Carlos L Dennis Facility:[id number] Start: 2024 ambulatory Carlos L Dennis Facility: [facility] Start: 10-30-2024 End: 10-30-2024 ambulatory CARLOS L DENNIS Facility:[facility] Start: 10-27-2024 End: 11-28-2024 Telephone encounter Janell An Pulmonary Medicine Comment on above: Bronchoscopy Referra l Start: 10-27-2024 End: 10-27-2024 Office outpatient new 60 minutes Kvng Perez MD Work Phone: Hematology/Oncology Comment on above: Malignant neoplasm o f lower lobe of right lung (HCC) (Primary Dx) Start: 10-27-2024 End: 10-27-2024 ambulatory CARLOS L DENNIS Facility:[facility] Start: 10-25-2024 End: 10-25-2024 Chart abstracting Kvng Perez MD Work Phone: Hematology/Oncology Start: 10-18-2024 ambulatory CHIP CARBAJAL Facility :[facility] Start: 10-16-2024 End: 10-16-2024 ambulatory Alina Ragland MD Work Phone: [facility] Work Phone: Start: 10-16-2024 End: 10-16-2024 Departed Referred Alina Ragland MD Work Phone: [facility] Start: 10-13-2024 End: 10-13-2024 ambulatory Carlos L Dennis Facility:[facility] Start: 10-10-2024 ambulatory Carlos Dennis Facility:[facility] [...] 09-08-2024 ambulatory Alina Ragland MD Work Phone: [place] Work Phone: Start: 09-08-2024 End: 09-08-2024 Patient encounter procedure Alina Ragland MD Work Phone: [facility] Work Phone: Start: 08-31-2024 End: 08-31-2024 ambulatory Alina Ragland MD Work Phone: [place] Work Phone: Start: 08-31-2024 End: 08-31-2024 Patient encounter procedure Alina Ragland MD Work Phone: [facility] Work Phone: Start: 07-13-2024 Non-patient / Non-visit Cinthya Ragland MD Work Phone: [facility] Work Phone: Start: 06-29-2023 End: 06-29-2023 Patient encounter procedure VICTORIA FLORES [facility] Start: 11-11-2022 Encounter for genera l adult medical examination without abnormal findings DR ALINA RAGLAND [facility] Start: 11-10-2022 End: 11-11-2022 ambulatory [...] Adult depression scr eening assessment Bishop Milan WHOLESALE ACCOUNT MANAGER-SCOUT EXECUTIVE Work Phone: Start: 11-08-2024 Ecg routine ecg [...] above: Performed By: #### P SAD #### [facility] [address] [place] [address] Dr. Jenny Stone Start: 09-30-2020 Lipid 1996 panel - S karishma or Plasma Kvng Perez MD Work Phone: Start: 05-17-2019 Transurethral prostatectomy VICTORIA FLORES Start: 12-08-2018 Cystoscopy VICTORIA BLACKBURN Colonoscopy VICTORIA FLORES Tonsillectomy VICTORIA FLORES Plan of Treatment Date Care Activity Detail Author Start: 2036 RSV Vaccine (1 - 1-dose 75+ series) RSV Vaccine (1 - 1-dose 75+ series) [facility] Start: 11-10-2027 Diabetes Screening Diabetes Screening [facility] Start: 12-07-2025 Adult BMI Screening Adult BMI Screening [facility] Start: 12-07-2025 Tobacco Screening Tobacco Screening [facility] Start: 11-22-2025 Tobacco Screening Tobacco Screening [facility] Start: 11-09-2025 Adult BMI Screening Adult BMI Screening [facility] Start: 11-09-2025 Depression Screening Depression Screening [facility] Start: 11-09-2025 Tobacco Screening Tobacco Screening [facility] Start: 11-08-2025 Adult BMI Screening Adult BMI Screening [facility] Start: 11-08-2025 Tobacco Screening Tobacco Screening [facility] Start: 09-30-2025 Lipid panel Lipid Screening [facility] Start: 05-30-2025 End: 05-30-2025 Clinical Support [facility] Start: 05-27-2025 Screening for malignant neoplasm of colon [facility] Start: 02-12-2025 Influenza vaccination [facility] Start: 01-12-2025 ambulatory Ambulatory Facility:[facility] Start: 01-09-2025 End: 01-09-2025 ambulatory 01/09/2025 2:30 PM EDT Visit (SP) Office Hematology/Oncology [address] [place] [address] [place] [address] Madison Nolasco, CHRISTELLET massage-pt in [facility] Hematology/Oncol og Comment on above: massage-pt in [facility] Start: 01-09-2025 ambulatory Ambulatory Facility:[facility] Start: 01-02-2025 End: 01-02-2025 ambulatory 01/02/2025 2:30 PM EDT Visit (SP) Office Hematology/Oncology [address] [place] [address] [place] [address] Madison Nolasco, TERRANCE massage-pt in [facility] Hematology/Oncol ogy Comment on above: massage-pt in [facility] Start: 12-26-2024 End: 12-26-2024 ambulatory 12/26/2024 2:30 PM EDT Visit (SP) Office Hematology/Oncology [address] [place] [address] [place] [address] Madison Nolasco, CHRISTELLET massage-pt in [facility] Hematology/Oncol ogy Comment on above: massage-pt in [facility] Start: 12-18-2024 End: 12-18-2024 Patient encounter procedure Radiation Oncology Comment on above: NEW START LUNG- RYAN PT NEW START LUNG - PT WOULD LIKE MORNINGS - RYAN PT Start: 12-18-2024 End: 12-18-2024 Follow-up encounter Hematology/Oncol ogy Comment on above: lab follow up and chemotx Carbo/Taxol Start: 12-18-2024 End: 12-18-2024 Patient encounter procedure [facility] Comment on above: lab follow up and chemotx Carbo/Taxol NEW START LUNG- RYAN PT NEW START LUNG - MOR NINGS - RYAN PT, med onc at 1 Start: 12-08-2024 End: 12-08-2024 Patient encounter procedure 12/08/2024 10:30 AM EDT Office Visit Radiation Oncology [address] [place] [place] [address] Ezra Lizama MD [address] [place] [address] [place] [address] SIM Lung, IV contrast,esoph contrast, 4DCT, consent signed Radiation Oncology Comment on above: SIM Lung, IV contrast,esoph contrast, 4D CT, consent signed Start: 12-08-2024 End: 12-08-2024 Nursing evaluation of patient and report 12/08/2024 10:00 AM EDT Nurse Visit Radiation Oncology [address] [place] [address] Radha, Nurse Radt [address] [place] [address] IV start Radiation Oncology Comment on above: [...] lung (HCC) Expected: 12/04/2024 (Approximate), Expires: 12/27/2025 [facility] Work Phone: Comment on above: Expected: 12/04/2024 (Approximate), Expi res: 12/27/2025 Start: 12-01-2024 End: 03-02-2025 CBC W Auto Differential panel - Blood COMPLETE BLOOD COUNT AND DIFFERENTIAL Lab Routine Malignant neoplasm of lower lobe of right lung (HCC) Expected: 12/01/2024 (Approximate), Expires: 03/02/2025 [facility] Work Phone: Comment on above: Expected: 12/01/2024 (Approximate), Expi res: 03/02/2025 Start: 12-01-2024 End: 03-02-2025 Cobalamin (Vitamin B12) [Mass/volume] in Serum or Plasma VITAMIN B12 Lab Routine Malignant neoplasm of lower lobe of right lung (HCC) Expected: 12/01/2024 (Approximate), Expires: 03/02/2025 [facility] Comment on above: Expected: 12/01/2024 (Approximate), Expi res: 03/02/2025 Start: 12-01-2024 End: 03-02-2025 Comprehensive metabolic 2000 panel - Serum or Plasma COMPREHENSIVE METABOLIC PANEL Lab Routine Malignant neoplasm of lower lobe of right lung (HCC) Expected: 12/01/2024 (Approximate), Expires: 03/02/2025 [facility] Comment on above: Expected: 12/01/2024 (Approximate), Expi res: 03/02/2025 Start: 12-01-2024 End: 03-02-2025 Ferritin [Mass/volume] in Serum or Plasma FERRITIN Lab Routine Malignant neoplasm of lower lobe of right lung (HCC) Expected: 12/01/2024 (Approximate), Expires: 03/02/2025 [facility] Comment on above: Expected: 12/01/2024 (Approximate), Expi res: 03/02/2025 Start: 12-01-2024 End: 03-02-2025 Folate [Mass/volume] in Serum or Plasma FOLATE, SERUM Lab Routine Malignant neoplasm of lower lobe of right lung (HCC) Expected: 12/01/2024 (Approximate), Expires: 03/02/2025 [facility] Comment on above: Expected: 12/01/2024 (Approximate), Expi res: 03/02/2025 Start: 12-01-2024 End: 03-02-2025 [facility] Lab Routine Malignant neoplasm of lower lobe of right lung (HCC) Expected: 12/01/2024, Expires: 03/02/2025 [facility] Comment on above: Expected: 12/01/2024, Expires: Start: 12-01-2024 End: 03-02-2025 Iron and Iron binding capacity panel - Serum or Plasma IRON AND TIBC Lab Routine Malignant neoplasm of lower lobe of right lung (HCC) Expected: 12/01/2024 (Approximate), Expires: 03/02/2025 [facility] Comment on above: Expected: 12/01/2024 (Approximate), Expi res: 03/02/2025 Start: 11-30-2024 End: 11-30-2024 Follow-up encounter 11/30/2024 3:30 PM EDT [facility] Nutrition Therapy [address] [place] [address] Jesusita Pabon, JAMIL [address] [place] [address] Follow up lung/ severe weight loss Nutrition Therapy Comment on above: Follow up lung/ severe weight loss Start: 11-30-2024 End: 11-30-2024 Patient encounter procedure 11/30/2024 9:00 AM EDT Office Visit Radiation Oncology [address] [place] [address] [place] [address] Ezra Lizama MD [address] [place] [address] [place] [address] SIM Lung, IV contrast,esoph contrast, 4DCT, consent signed Radiation Oncology Comment on above: SIM Lung, IV contrast,esoph contrast, 4D CT, consent signed Start: 11-30-2024 End: 11-30-2024 Nursing evaluation of patient and report 11/30/2024 8:45 AM EDT Nurse Visit Radiation Oncology [address] [place] [address] [place] [address] Radha, Nurse Radt [address] [place] [address] [place] [address] IV Nurse visit Radiation Oncology Comment on above: IV Nurse visit Start: 11-27-2024 End: 11-27-2024 Nursing evaluation of patient and report 11/27/2024 9:00 AM EDT Nurse Visit Hematology/Oncology [address] [place] [address] Tiffanie Hargrove, RN [address] [place] [address] weekly carbo taxol Hematology/Oncol ogy Comment on above: weekly carbo taxol Start: 11-23-2024 End: 11-23-2024 Patient encounter procedure 11/23/2024 3:00 PM EDT Office Visit Radiation Oncology [address] [place] [address] Ezra Lizama MD [address] [place] [place] [address] SIM Lung, IV contrast,esoph contrast, 4DCT, consent signed Radiation Oncology Comment on above: SIM Lung, IV contrast,esoph contrast, 4D CT, consent signed Start: 11-23-2024 End: 11-23-2024 Nursing evaluation of patient and report 11/23/2024 2:45 PM EDT Nurse Visit Radiation Oncology [address] [place] [address] Radha, Nurse Radt [address] [place] [address] [place] [address] IV Nurse visit Radiation Oncology Comment on above: IV Nurse visit Start: 11-22-2024 End: 11-22-2025 Device Interrogation Device Interrogation Cardiac Services Routine Pacemaker- [place] Expected: 11/22/2024, Expires: 11/22/2025 [facility] Work Phone: Comment on above: Expected: 11/22/2024, Expires: Start: 11-22-2024 End: 11-22-2024 Patient encounter procedure 11/22/2024 1:00 PM EDT Office Visit [facility] [address] [place] [phone] Bishop Milan, WHOLESALE ACCOUNT MANAGER-SCOUT EXECUTIVE [address] [place], [place] [id number] [facility] Start: 11-20-2024 End: 11-20-2024 Admission to same day surgery center 11/20/2024 11:30 AM EDT - 11/20/2024 1:30 PM EDT Surgery Admitting [address] [address] Regina Robertson MD [address] [place] [address] BRONCHOSCOPY FLEXIBLE ADULT Admitting Comment on above: BRONCHOSCOPY FLEXIBLE ADULT Start: 11-20-2024 Subsequent hospital visit by physician 11/20/2024 11:30 AM EDT Hospital Encounter Admitting [address] [address] Regina Robertson MD [address] [place] [address] 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] Admitting Comment on above: 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] Start: 11-20-2024 End: 11-20-2024 [facility] incl fluor gdnce dx w/cell washg spx [facility] H23 Start: 11-17-2024 End: 11-17-2024 Follow-up encounter 11/17/2024 2:00 PM EDT Visit (SP) Office Hematology/Oncology [address] [place] [address] [place] [address] Kvng Perez MD [address] [address] 2 week follow up Hematology/Oncol ogy Comment on above: 2 week follow up Start: 11-17-2024 End: 11-17-2024 Patient encounter procedure 11/17/2024 1:00 PM EDT Office Visit Radiation Oncology [address] [place] [address] [place] [address] Ezra Lizama MD [address] [place] [address] Consult dx Lung cancer Radiation Oncology Comment on above: Consult dx Lung cancer Start: 11-15-2024 End: 11-15-2024 ambulatory 11/15/2024 12:10 PM EDT Procedure Cardiology [address] [address] PreOp Testing Cardiology Comment on above: PreOp Testing Start: 11-15-2024 End: 11-15-2024 Patient encounter procedure 11/15/2024 11:00 AM EDT Office Visit Pulmonary Medicine [address] [address] Regina Robertson MD [address] [place] [address] New Consultation Pulmonary Medicine Comment on above: New Consultation Start: 11-10-2024 End: 02-09-2025 CBC W Auto Differential panel - Blood COMPLETE BLOOD COUNT AND DIFFERENTIAL Lab Routine Malignant neoplasm of lower lobe of right lung (HCC) Expected: 11/10/2024 (Approximate), Expires: 02/09/2025 [facility] Comment on above: Expected: 11/10/2024 (Approximate), Expi res: 02/09/2025 Start: 11-10-2024 End: 02-09-2025 Cobalamin (Vitamin B12) [Mass/volume] in Serum or Plasma VITAMIN B12 Lab Routine Malignant neoplasm of lower lobe of right lung (HCC) Expected: 11/10/2024 (Approximate), Expires: 02/09/2025 [facility] Comment on above: Expected: 11/10/2024 (Approximate), Expi res: 02/09/2025 Start: 11-10-2024 End: 02-09-2025 Comprehensive metabolic 2000 panel - Serum or Plasma COMPREHENSIVE METABOLIC PANEL Lab Routine Malignant neoplasm of lower lobe of right lung (HCC) Expected: 11/10/2024 (Approximate), Expires: 02/09/2025 [facility] Comment on above: Expected: 11/10/2024 (Approximate), Expi res: 02/09/2025 Start: 11-10-2024 End: 02-09-2025 Ferritin [Mass/volume] in Serum or Plasma FERRITIN Lab Routine Malignant neoplasm of lower lobe of right lung (HCC) Expected: 11/10/2024 (Approximate), Expires: 02/09/2025 [facility] Comment on above: Expected: 11/10/2024 (Approximate), Expi res: 02/09/2025 Start: 11-10-2024 End: 02-09-2025 Folate [Mass/volume] in Serum or Plasma FOLATE, SERUM Lab Routine Malignant neoplasm of lower lobe of right lung (HCC) Expected: 11/10/2024 (Approximate), Expires: 02/09/2025 [facility] Comment on above: Expected: 11/10/2024 (Approximate), Expi res: 02/09/2025 Start: 11-10-2024 End: 02-09-2025 Iron and Iron binding capacity panel - Serum or Plasma IRON AND TIBC Lab Routine Malignant neoplasm of lower lobe of right lung (HCC) Expected: 11/10/2024 (Approximate), Expires: 02/09/2025 [facility] Comment on above: Expected: 11/10/2024 (Approximate), Expi res: 02/09/2025 Start: 11-10-2024 End: 11-26-2025 MR Brain WO and W contrast IV MRI BRAIN WO/W IVCON Radiology Routine Malignant neoplasm of lower lobe of right lung (HCC) Expected: 11/10/2024, Expires: 11/26/2025 [facility] Work Phone: Comment on above: Expected: 11/10/2024, Expires: Start: 11-10-2024 End: 11-10-2024 Patient encounter procedure 11/10/2024 9:00 AM EDT Office Visit Radiation Oncology [address] [place] [address] [place] [address] Ezra Lizama MD [address] [place] [address] [place] [address] Consult dx Lung cancer Radiation Oncology Comment on above: Consult dx Lung cancer Start: 11-10-2024 End: 11-10-2024 Follow-up encounter 11/10/2024 8:30 AM EDT Visit (SP) Office Hematology/Oncology [address] [place] [address] [place] [address] Kvng Perez MD [address] [facility] [place] [address] 2 week follow up Hematology/Oncol ogy Comment on above: 2 week follow up Start: 11-08-2024 End: 11-08-2024 Patient encounter procedure 11/08/2024 2:30 PM EDT Office Visit [facility] [address] [place] [id number] Jennifer Best MD [address] [place], [place] [id number] [facility] Start: 10-30-2024 End: 10-30-2024 Nutrition therapy 10/30/2024 2:30 PM EDT Education Nutrition Therapy [address] [place] [id number] Jesusita Pabon, JAMIL [address] [place] [address] Nutri phone call ref by Dr Perez Nutrition Therapy Comment on above: Nutri phone call ref by Dr Perez Start: 10-27-2024 End: 10-27-2024 ambulatory 10/27/2024 9:00 AM EDT Visit (SP) Office Hematology/Oncology [address] [place] [address] [place] [address] Kvng Perez MD [address] [place] [address] [place] [address] 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 Hematology/Oncol ogy Comment on above: 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 Start: 09-29-2024 COVID-19 Vaccine (4 - Mixed Product risk ) COVID-19 Vaccine (4 - Mixed Product risk ) [facility] Start: 08-31-2024 Plain chest X-ray XR chest 2V* [facility] Start: 02-13-2024 Covid-19 Vaccine () Covid-19 Vaccine () [facility] Start: 10-01-2023 Diabetes Screening Diabetes Screening [facility] Start: 11-03-2011 Administration of varicella zoster vaccine Zoster (Shingles) Vaccine (1 of 2) [facility] Start: 11-03-2011 Pneumococcal Vaccine: 50+ (1 of 1 - PCV) Pneumococcal Vaccine: 50+ (1 of 1 - PCV) [facility] Start: 11-03-2011 Shingrix Vaccine (1 of 2) Shingrix Vaccine (1 of 2) [facility] Start: 2006 Prostate specific antigen measurement Prostate Cancer Screening Discussion [facility] Start: 2006 Screening for malignant neoplasm of colon [facility] Start: 1980 Administration of varicella zoster vaccine Zoster (Shingles) Vaccine (1 of 2) [facility] Start: 1980 DTaP,Tdap and Td Vaccines (1 - Tdap) DTaP,Tdap and Td Vaccines (1 - Tdap) [facility] Start: 1980 Pneumococcal Vaccine: 50+ (1 of 2 - PCV) Pneumococcal Vaccine: 50+ (1 of 2 - PCV) [facility] Start: 1980 Shingrix Vaccine (1 of 2) Shingrix Vaccine (1 of 2) [facility] Start: 1980 Urine microalbumin profile DTaP,Tdap,Td Vaccine (1 - Tdap) [facility] Start: 11-03-1979 Adult BMI Follow Up Plan Adult BMI Follow Up Plan [facility] Start: 11-03-1979 Adult BMI Screening Adult BMI Screening [facility] Start: 11-03-1979 Anxiety Screening Anxiety Screening [facility] Start: 11-03-1979 Depression Screening Depression Screening [facility] Start: 11-03-1979 Hepatitis C screening Hepatitis C Screening [facility] Start: 11-03-1979 HIV screening HIV Screening [facility] Start: 1973 Depression Screening Depression Screening [facility] Start: 1973 Tobacco Screening Tobacco Screening [facility] BLOOD CULTURE 1 BLOOD CULTURE 1 Lab Routine 10/06/2024 6:12 PM EDT [facility] Work Phone: BLOOD CULTURE 2 BLOOD CULTURE 2 Lab Routine 10/06/2024 6:20 PM EDT [facility] CARDIAC IMPLANTABLE DEVICE CHECK CARDIAC IMPLANTABLE DEVICE CHECK PACEART Routine 11/20/2024 10:41 AM EDT [facility] Work Phone: CT Guidance for radi ation treatment of Unspecified body region CT SIM PLANNING RADIATION ONCOLOGY Radiology Routine Malignant neoplasm of lower lobe of right lung (HCC) Ordered: 12/04/2024 [facility] Work Phone: Comment on above: Ordered: 12/04/2024 End: 12-23-2025 SPIROMETRY BASELINE ONLY SPIROMETRY BASELINE ONLY PFT Routine Malignant neoplasm of lower lobe of right lung (HCC) 1 Occurrences starting 11/23/2024 until 12/23/2025 [facility] Work Phone: Comment on above: 1 Occurrences starting 11/23/2024 until 12/23/2025 XR Chest 2 Views [facility] Immunizations Immunization Date Immunization Notes Care Provider [facility] 03-31-2024 Seasonal, trivalent, recombinant, injectable influenza vaccine, preservative free Bishop Bjorn WHOLESALE ACCOUNT MANAGER-SCOUT EXECUTIVE Work Phone: [facility] 03-31-2024 influenza virus vaccine, unspecified formulation Jennifer Best MD Work Phone: [facility] 04-21-2023 Seasonal, quadrivalent, recombinant, injectable influenza vaccine, preservative free Bishop Bjorn WHOLESALE ACCOUNT MANAGER-SCOUT EXECUTIVE Work Phone: [facility] 03-16-2022 influenza virus vaccine, unspecified formulation VICTORIA FLORES [facility] 03-16-2022 Seasonal, quadrivalent, recombinant, injectable influenza vaccine, preservative free Bishop Bjorn WHOLESALE ACCOUNT MANAGER-SCOUT EXECUTIVE Work Phone: [facility] 04-07-2021 influenza virus vaccine, unspecified formulation VICTORIA FLORES [facility] 04-07-2021 influenza, seasonal, injectable Bishop Bjorn WHOLESALE ACCOUNT MANAGER-SCOUT EXECUTIVE Work Phone: [facility] 09-25-2020 SARS-CoV-2 (COVID-19 ) mRNA-1273 vaccine VICTORIA FLORES [facility] Comment on above: Result Comment: [id number]: [id number] 08-28-2020 SARS-CoV-2 (COVID-19 ) mRNA-1273 vaccine VICTORIA FLORES [facility] 06-14-2020 SARS-CoV-2 (COVID-19 ) mRNA-1273 vaccine VICTORIA FLORES [facility] Comment on above: Result Comment: pt alondra mac he is fully vaccinated 04-02-2020 influenza virus vaccine, unspecified formulation VICTORIA FLORES [facility] 04-02-2020 Influenza, injectabl e, Madin Pily Canine Kidney, quadrivalent with preservative Bishop Milan WHOLESALE ACCOUNT MANAGER-SCOUT EXECUTIVE Work Phone: [facility] 03-14-2017 influenza virus vaccine, unspecified formulation VICTORIA FLORES [facility] Payers Date Payer Category Payer [facility] [id number] 2013 [facility] Managed Care - Other ANTH [id number] 1961 Unknown [id number] 2.16.840.1.200311.3.579. 2.593 1961 Unknown [id number] 2.16.840.1.721274.3.579. 2.593 1961 Unknown [id number] 2.16.840.1.481181.3.579. 2.593 1961 Unknown [id number] 2.16.840.1.432894.3.579. 2.128 1961 Unknown [id number] 2.16.840.1.680708.3.579. 2.1285 1961 Unknown [id number] 2.16.840.1.315797.3.579. 2.1285 1961 Unknown [id number] 2.16.840.1.799013.3.579. 2.1285 1961 Unknown [id number] 2.16.840.1.073115.3.579. 2.1285 1961 Unknown [id number] 2.16.840.1.598823.3.579. 2.1285 1961 Unknown [id number] 2.16.840.1.643218.3.579. 2.1285 1961 Unknown [id number] 2.16.840.1.252023.3.579. 2.128 1961 Unknown [id number] 2.16.840.1.316940.3.579. 2.1285 1961 Unknown [id number] 2.16.840.1.595292.3.579. 2.1285 1961 Unknown [id number] 2.16.840.1.569372.3.579. 2.1285 1961 Unknown [id number] 2.16.840.1.561277.3.579. 2.1286 1961 Unknown [id number] 2.16.840.1.719195.3.579. 2.727 1961 Unknown [id number] 2.16.840.1.145866.3.579. 2.727 1961 Unknown [id number] 2.16.840.1.172623.3.579. 2.727 1961 Unknown [id number] 2.16.840.1.579440.3.579. 2.727 1961 Unknown [id number] 2.16.840.1.058458.3.579. 2.727 1961 Unknown [id number] 2.16.840.1.339468.3.579. 2.727 1961 Unknown [id number] 2.16.840.1.093139.3.579. 2.727 1961 Unknown [id number] 2.16.840.1.369788.3.579. 2.727 1959 Unknown [id number] Social History Date Type Detail Facility Start: 06-29-2023 End: 10-25-2024 Tobacco smoking status Ex-smoker (finding) [facility] Tobacco smoking status Never [facility] Start: 10-25-2024 End: 11-15-2024 Sex Assigned At Male [facility] Start: 01-17-2015 End: 08-31-2024 Sex Male (finding) [facility] Start: 1960 Sex Assigned At Male F [facility] Tobacco smoking stat NHIS Tobacco smoking consumption unknown [facility] Start: 1960 Sex assigned at Not on file [facility] Start: 06-14-2016 End: 01-04-2017 History of tobacco use Current smoker [facility] Start: 06-14-2016 End: 01-04-2017 History of tobacco use Cigarette Smoker [facility] History of tobacco use Passive smoker [facility] Start: 10-25-2024 End: 11-08-2024 Tobacco use and exposure Smokeless tobacco non-user [facility] Start: 10-25-2024 End: 11-17-2024 Alcoholic beverage intake Ex-drinker (finding) [facility] Start: 10-25-2024 End: 11-15-2024 History of Social function [facility] Start: 03-31-2017 End: 11-08-2024 Alcoholic beverage intake Current drinker of alcohol (finding) [facility] Has the [employer], or [employer] threatened to shut off services in your home in past 12Mo No [facility] How often to you hav e a drink containing alcohol? Monthly or less [facility] How many standard drinks containing alcohol do you have on a typical day? 1 or 2 [facility] How often do you hav e 6 or more drinks on 1 occasion? Never [facility] Start: 11-17-2024 Alcohol Comment rarely [facility] Medical Equipment Procedure Code Equipment Code Equipment Origin al Text Equipment Identifier Dates Lead Pcng 52cm A tr Vntrc Ingevity+ Xtd Rtrct Fx Is-1 Cnct - [id number] - [id number], [id number] FDA Start: 11-09-2024 Lead Pcng 59cm A tr Vntrc Ingevity+ Xtd Rtrct Fx Is-1 Cnct - [id number] - [id number] ()[id number], [id number] FDA Start: 11-09-2024 Cardiac pacemaker, device (physical object) ([id number]) Pacemaker .75cm Acld Mri El 2 Chmbr Is-1 Cnct Avinash Mntr 4.45 - [id number] - [id number] ()[id number] , [id number] FDA Start: 11-09-2024 [id number] Start: 10-12-2024 [id number] Start: 10-12-2024 [id number] Start : 11-09-2024 Goals Date Patient Goal Desired Activity /State Personal health goal Comment on above: Formatting of this n ote might be different from the original. Evaluation of progress towards goal: Pt plans to return home self care with support. Functional Status Date Assessment Result Facility 06-29-2023 Functional Status N/A [facility] Clinical Notes 06-29-2023 to 12-12-2024 Telephone Encounter [...] encounter for this order. Tiffanie Hargrove RN [facility] Work Phone: 12-12-2024 Miscellaneous Notes Call received from pt's stating they would like to discuss physical therapy as an option for pt when he is here on Wednesday seeing Dr Wilkerson. Pt will need a face to face encounter for this order. Tiffanie Hargrove RN documented in this encounter [facility] 12-12-2024 Telephone encounter Note Patient scheduled. Radha Perdue [facility] 12-12-2024 Miscellaneous Notes Patient scheduled. Radha Perdue [...] XRT. Radha Perdue documented in this encounter [facility] 12-08-2024 Telephone encounter Note Voicemail received from pt's stating she has questions regarding a prior auth that needs to be done for Foundation One testing. Call placed to pt's and message left requesting her to call our office back Tiffanie Hargrove RN [facility] Work Phone: 12-08-2024 Miscellaneous Notes Voicemail received from pt's stating she has questions regarding a prior auth that needs to be done for Foundation One testing. Call placed to pt's and message left requesting her to call our office back Tiffanie Hargrove RN documented in this encounter [facility] 12-08-2024 Telephone encounter Note No need to repeat now. Thank you. [facility] 12-08-2024 Miscellaneous Notes No need to repeat now. Thank you. Pt's CT brain done here on 12/07 recommends brain MRI with and without. Pt had a brain MRI done on 11/02 at [facility]. Does this need ot be repeated or no? Please advise Tiffanie Hargrove RN documented in this encounter [facility] 12-08-2024 Telephone encounter Note Pt's CT brain done here on 12/07 recommends brain MRI with and without. Pt had a brain MRI done on 11/02 at [facility]. Does this need ot be repeated or no? Please advise Tiffanie Hargrove RN [facility] Work Phone: 12-08-2024 History of Presen t illness Narrative JATIN KOCH [id number] 12/08/2024 [facility] Radiation Oncology Department SIMULATION NOTE DATE OF SIMULATION: 12/08/2024 THERAPIST: Nancy De La Garza MACHINE: C2C Link DIAGNOSIS: Malignant neoplasm of overlapping sites of [...] CDT 54:44 PM documented in this encounter [facility] 12-08-2024 History of Presen t illness Narrative JATNI KOCH [id number] 12/08/2024 [facility] [place] [facility] - Department of Radiation Oncology Treatment Planning [...] M.D. :01 AM documented in this encounter [facility] 12-08-2024 Note HNO ID: [id number] Author: EZRA LIZAMA MD Service: ? Author Type: Physician Type: Progress Notes Filed: 12/10/2024 16:44 Note Text: JATIN KOCH [id number] 12/08/2024 [facility] Radiation Oncology Department SIMULATION NOTE DATE OF SIMULATION: 12/08/2024 THERAPIST: Nancy De La Garza MACHINE: C2C Link DIAGNOSIS: Malignant neoplasm of overlapping sites of [...] Ezra Lizama M.D. / CDT :44 PM [facility] 12-07-2024 History of Presen t illness Narrative Jatin Koch II Date of visit: 12/07/2024 Date of : 1960 Age: 64 y.o. Patient Active Problem List Diagnosis AV block BPH with urinary obstruction Arthritis Gout Squamous cell lung cancer (CMS-HCC) Syncope Pacemaker- [place] Allergies Allergen Reactions Bactrim [Sulfamethoxazole-Trimethoprim] Codeine diaphoresis [...] by Robert Veloz MD at [facility] (EP) SKIN BIOPSY basal cell carcinoma removed from left latter day TONSILLECTOMY TURP / TRANSURETHRAL INCISION / DRAINAGE [...] Squamous cell carcinoma of lung, unspecified laterality ([facility]) 1. Intermittent complete heart block symptomatic with syncopal episodes s/p [place] [employer] dual-chamber pacemaker 11/09/2024. Elevated atrial threshold [...] PCP: CLINT PRINCE Referring Physician: CLINT Prince [address] [place] [address] [place] [address] CLINT Chowdary 12/07/24 1542 documented in this encounter [facility] 12-07-2024 History of Presen t illness Narrative I agree with the findings in the scanned document. documented in this encounter [facility] 12-07-2024 History of Presen t illness [...] PATIENT PRESENTS WITH AN IMPLANTABLE OR ATTACHED MASTER TAX ADVISOR: No RADIOLOGY DEPARTMENT: CT; Exam(s) Completed: Brain PERIPHERAL IV DATA: Not applicable SIGNED BY: RT Meagan(R) December 07, 2024 8:26 AM documented in this encounter [facility] 12-07-2024 Note HNO ID: [id number] Author: ILEANA LITTLE RT(R) Service: ? Author [...] PATIENT PRESENTS WITH AN IMPLANTABLE OR ATTACHED MASTER TAX ADVISOR: No RADIOLOGY DEPARTMENT: CT; Exam(s) Completed: Brain PERIPHERAL IV DATA: Not applicable SIGNED BY: RT Meagan(R) December 07, 2024 8:26 AM [facility] 12-06-2024 Telephone encounter Note Records scanned. [facility] 12-06-2024 Miscellaneous Notes Records scanned. Pt's CXR [...] Tiffanie Hargrove RN documented in this encounter [facility] 12-06-2024 Telephone encounter Note Pt's CXR shows no changes. Tiffanie Hargrove RN [facility] Work Phone: 12-05-2024 Telephone encounter Note Consider going to ER if symptoms get worse. Thank you [facility] 12-05-2024 Telephone encounter Note Call received from [...] from PCP please Thanks Tiffanie Hargrove, RN [facility] 12-04-2024 History of Presen t illness Narrative Images from the original note were not included. Radiation Oncology - New Patient/Consult Note PATIENT NAME: Jatin Koch II PATIENT Signed: Ezra Lizama MD I spent a total of 60 minutes on the date of the service which included preparing to see the patient, [id number] patient care, and counseling and educating the [...] Richardson Cantu RN documented in this encounter [facility] 11-29-2024 Telephone encounter Note SIM rescheduled to 12/08. [facility] 11-28-2024 Telephone encounter Note IV start appointment has been added. I called and spoke to Gina Eloy. I reminded her of the CT on 12/07/24. I confirmed his SIM arrival date and time on the . Lauren Brownlee PSS [facility] 11-28-2024 Miscellaneous Notes IV start appointment has [...] Macy Oviedo RN documented in this encounter [facility] 11-28-2024 Telephone encounter Note Please notify pt and adjust appts. Macy Oviedo RN [facility] 11-28-2024 Telephone encounter Note Sim rescheduled for 12/08/24 at 10:30 Will need nurse visit for IV start Nancy De La Cruz RT(R)(T) [facility] 11-28-2024 Telephone encounter Note Images from the [...] prior to that. Macy Oviedo, RN T [facility] 11-28-2024 Telephone encounter Note Nurse visit has been canceled Lauren Brownlee PSS [facility] 11-28-2024 Telephone encounter Note Sim cancelled for 11/30/24; will reschedule once notified when to re add PSS- please cancel nurse visit for 11/30 Nancy De La Cruz RT(R)(T) [facility] 11-28-2024 Telephone encounter Note PTs spouse [...] 1 week? Please advise. Macy Oviedo, RN [facility] 11-27-2024 Telephone encounter Note Recived outside call Eulalio Porras. Patient presented to [facility] ED w/ 5 days of fever. [...] call them tomorrow and reschedule his appointment. [facility] Work Phone: 11-27-2024 Miscellaneous Notes Recived outside call fromDr Porras. Patient presented to [facility] ED w/ 5 days of fever. [...] reschedule his appointment. documented in this encounter [facility] 11-27-2024 Telephone encounter Note Spoke to patient's , Eloy. Dr Robertson suggested patient go to the nearest emergency room to be evaluated for the fever, chills, & diaphoretic episodes. She is aware patient may need to get bloodwork / blood cultures drawn, and may need to be admitted for IV antibiotics. Eloy is in agreement with this plan. [facility] 06-16-2025 Miscellaneous Notes Spoke to patient's , [...] She stated the doxycyline is not working [phone] Eloy documented in this encounter [facility] 11-27-2024 Telephone encounter Note Called and spoke to Jatin and we scheduled him for a CT on 12/07/24 at 8:30 AM Lauren B PSS [facility] 11-27-2024 Miscellaneous Notes Called and spoke to [...] Tiffanie Hargrove RN documented in this encounter [facility] 11-27-2024 Telephone encounter Note Please call pt's and schedule CT head ordered by Dr Wilkerson. Thanks Tiffanie Hargrove RN [facility] Work Phone: 11-27-2024 Telephone encounter Note I ordered a CT head. Thank you [facility] 11-27-2024 Telephone encounter Note Patient called and stated if something else can be given to patient for his MRSA. He is running fevers, getting chills,and diuretic episodes She stated the doxycyline is not working [phone] Eloy [facility] 11-27-2024 Telephone encounter Note Pt is here for education today and is concerned that pt has been having brain fog lately (for at least 3 weeks), doesn't remember things, feels dizzy and woozy at times, and has continued weakness and fatigue. Pt is due for SIM on Wednesday. Had a brain MRI on 11/02 that was negative. Please advise Tiffanie Hargrove RN [facility] 11-27-2024 Note HNO ID: [id number] Author: TIFFANIE HARGROVE RN Service: ? Author [...] here at our office. Tiffanie Hargrove, RN Entry Level Account Manager Pre Chemo Patient identified by name and date of . YES Confirmed date and time for chemotherapy ? YES TBD Other appointments (labs, imaging) discussed? YES Discussed where to park (lapper), charge for parking NO Discussed where to [...] 5 days for MRSA. Encouraged to call boom operator who pt is following for MRSA to [...] days of treatm (more content not included)... [facility] 11-27-2024 History of Presen t illness Narrative [...] here at our office. Tiffanie Hargrove, RN Entry Level Account Manager Pre Chemo Patient identified by name and date of . YES Confirmed date and time for chemotherapy ? YES TBD Other appointments (labs, imaging) discussed? YES Discussed where to park (lapper), charge for parking NO Discussed where to [...] 5 days for MRSA. Encouraged to call boom operator who pt is following for MRSA to [...] from the original note were not included. [facility] Department of Pharmacy Oncology Pharmacy Medication [...] Eloy Lucas RPh documented in this encounter [facility] 11-27-2024 Telephone encounter Note Please sign pending antiemetics for pt's education today. Thanks Tiffanie Hargrove RN [facility] 11-27-2024 Miscellaneous Notes Please sign pending antiemetics for pt's education today. Thanks Tiffanie Hargrove RN documented in this encounter [facility] 11-27-2024 Miscellaneous Notes Addended by: ELOY LUCAS on: 11/27/2024 11:45 AM Modules accepted: Orders Addended by: ELOY LUCAS on: 11/27/2024 11:58 AM Modules accepted: Orders documented in this encounter [facility] 11-27-2024 Note Addended by: ELOY LUCAS on: 11/27/2024 11:45 AM Modules accepted: Orders [facility] 11-27-2024 Note Addended by: ELOY LUCAS on: 11/27/2024 11:58 AM Modules accepted: Orders [facility] 11-27-2024 Note HNO ID: [id number] Author: ELOY LUCAS RPh Service: ? Author Type: Pharmacist Type: Progress Notes Filed: 11/27/2024 11:40 Note Text: [facility] Department of Pharmacy Oncology Pharmacy Medication [...] minute increments) with the patient Eloy Lucas, [facility] 11-23-2024 Telephone encounter Note Per appointments, pt's SIM was rescheduled to 11/30. Radha Perdue [facility] 11-23-2024 Telephone encounter Note I spoke with patient & let him know his SIM was rescheduled to 11/30/2024 & to arrive by 8:30 am. CLAY Ramos [facility] 11-23-2024 Miscellaneous Notes I spoke with patient & let him know his SIM was rescheduled to 11/30/2024 & to arrive by 8:30 am. CLAY Ramos Added nurse visit for IV start on 11/30/2024 at 8:45 am. CLAY Ramos Sim re- scheduled for 11/30/24 at [...] aware that Dr. Lizama will be in [place] on 11/27 and 11/28. Richardson Cantu RN [...] this a.m.? PSS: Please schedule PFT's at [facility] per patient request. These need scheduled [...] pending but would like them done at [facility]-no orders in [facility]. She also asked about a CT chest with IV contrast being ordered-no orders in [facility]. She said he is to have labs per Dr. Perez and is wondering if he can have those drawn at [facility] as well. Patient is currently scheduled for SIM today with Dr. Lizama. Please advise: Does patient need PFT's and/or CT chest? Can patient have Foundation one and other ordered labs at [facility] or do they need done at [facility]? Should SIM continue today or be rescheduled d/t MRSA? Thanks Richardson Cantu RN documented in this encounter [facility] 11-23-2024 Telephone encounter Note Added nurse visit for IV start on 11/30/2024 at 8:45 am. Blessing Dougherty PSS [facility] 11-23-2024 Telephone encounter Note Sim re- scheduled for 11/30/24 at 9:00 am Please add nurse visit for 8:45 for IV start, notify patient of arrival time of 8:30 Nancy Hussein RT(R)(T) [facility] 11-23-2024 Telephone encounter Note PSS/RT: Dr. Lizama would like today's SIM rescheduled to next week any day 11/29-12/01. I notified Eloy, pt's , of the above and our office will call her back to reschedule. Please call pt's with new appt. She would like to keep chemo ed as scheduled on 11/[address] Lizama will be in [place] on 11/27 and 11/28. Richardson Cantu RN [facility] 11-23-2024 Telephone encounter Note Eloy called back and current temp is 98.9, with Tylenol 1, 00mg at 8:00 a.m. Richardson Cantu RN [facility] 11-23-2024 Telephone encounter Note I called [...] this a.m.? PSS: Please schedule PFT's at [facility] per patient request. These need scheduled prior to radiation new start. Thanks Richardson Cantu RN [facility] 11-23-2024 Telephone encounter Note No need of PFTs and CT chest. [facility] Work Phone: 11-23-2024 Telephone encounter Note Foundation labs will need to be drawn in our office. Will defer the other questions to the providers. Ileana Bear RN [facility] Work Phone: 11-23-2024 Telephone encounter Note Patient has a string cough but unable to cough up mucous. Patient would like saline for nebulizer sent to [facility] at [address] in [place] [id number] [facility] 11-23-2024 Miscellaneous Notes Patient has a string cough but unable to cough up mucous. Patient would like saline for nebulizer sent to [facility] at [address] in [place] [id number] documented in this encounter [facility] 11-23-2024 Telephone encounter Note Eloy, pt's spouse, left a message stating Jatin had bronchoscopy and sputum culture and will be starting doxycycline 100mg BID x 7 days today for MRSA. She is said authorization for PFT's is still pending but would like them done at [facility]-no orders in [facility]. She also asked about a CT chest with IV contrast being ordered-no orders in [facility]. She said he is to have labs per Dr. Perez and is wondering if he can have those drawn at [facility] as well. Patient is currently scheduled for SIM today with Dr. Lizama. Please advise: Does patient need PFT's and/or CT chest? Can patient have [facility] one and other ordered labs at [facility] or do they need done at [facility]? Should SIM continue today or be rescheduled d/t MRSA? Thanks Richardson Cantu RN [facility] 11-23-2024 Progress note Formatting of t his [...] snack and light sensitivity. All questions answered. [facility] 11-23-2024 Miscellaneous Notes Called patient, no answer, [...] All questions answered. documented in this encounter [facility] 11-22-2024 History of Presen t illness Narrative Jatin Pulliam August ANSARI Date of visit: 11/22/2024 Date of : 1960 Age: 64 y.o. Patient Active Problem List Diagnosis AV block BPH with urinary obstruction Arthritis Gout Squamous cell lung cancer ([facility]) Syncope Allergies Allergen Reactions Bactrim [Sulfamethoxazole-Trimethoprim] Codeine [...] heart block. He was recently seen at [facility] warranting pacer implant. He was seen at [facility] due to recurrent syncope and EKG findings of intermittent complete heart block. Transferred to [facility] after evaluation at the [place] office. He is currently being treated for lung CA right lower lobe through [facility]. Also treated for hypertension. Device implant 11/09/2024 Dr. Veloz. He had had scheduled outpatient bronchoscopy through [facility] on the . His device was interrogated [...] evaluated in the ER. He lives in [facility]. He is scheduled for device check again in a couple weeks. I will see him at that time Past Medical History: Diagnosis Date Arthritis Hypertension Lung cancer (CMS-HCC) No data recorded No data recorded No data recorded Past Surgical History: Procedure Laterality Date EP Invasive DC PPM Left 11/09/2024 Performed by Robert Veloz MD at [facility] (EP) SKIN BIOPSY basal cell carcinoma removed from left latter day TONSILLECTOMY TURP / TRANSURETHRAL INCISION / DRAINAGE [...] Squamous cell carcinoma of lung, unspecified laterality ([facility]) 1. Intermittent complete heart block symptomatic with syncopal episodes s/p [employer] [employer] dual-chamber pacemaker 11/09/2024. Elevated atrial threshold noted on device check through [facility] 11/20/2024. Repeat device check today:, x-ray completed [...] PCP: CLINT PRINCE Referring Physician: CLINT Prince [address] [place] [address] [place] [address] CLINT Chowdary 11/22/24 1404 documented in this encounter [facility] 11-22-2024 History of Presen t illness Narrative I agree with the findings in the scanned document. documented in this encounter [facility] 11-20-2024 Telephone encounter Note SIM scheduled for 11/23 -- Education w/ Tiffanie scheduled on 11/30 (Tiff was out on the ). Patient notified of ed appt. Radha Perdue [facility] 11-20-2024 Note HNO ID: [id number] Author: GILBERTO REYES APRN.ASSOCIATE PROFESSOR OF LIBRARY SCIENCE Service: ? Author Type: Nurse Ruby Software Developer Type: Anesthesia Procedure Notes Filed: 11/20/2024 11:10 Note Text: ANESTHESIOLOGY PROCEDURE NOTE Airway General Information Procedure Start Time/Medication Administration: 11/20/2024 10:57 AM Procedure End Time: 11/20/2024 10:57 AM Patient location during procedure: OR Timeout Performed Pre-procedure: timeout performed Consent Obtained: Yes Patient identity confirmed: arm band Staffing Anesthesiologist: Azalea Mejía MD ASSOCIATE PROFESSOR OF LIBRARY SCIENCE: Gilberto Reyes APRN.ASSOCIATE PROFESSOR OF LIBRARY SCIENCE Performed by: anesthesiologist and ASSOCIATE PROFESSOR OF LIBRARY SCIENCE Indications and Patient Condition Indications for airway management: anesthesia Preoxygenated: yes anesthesia circuit Patient position: sniffing Method: asleep Cricoid Pressure: No Manual In-Line Stabilization: No Difficult Mask: No Airway Accessory: oral airway Final Airway Details Final airway type: endotracheal airway Final Endotracheal Airway: ETT Cuffed: yes Successful intubation technique: video laryngoscopy Devices used: Troodon Endotracheal tube insertion site: oral Blade size: #4 ETT size (mm): 8.5 Measured from: teeth Measurement (cm): 21 Placement verified by: bronchoscopy and capnometry Cormack-Lehane Classification: grade I - full view of glottis Number of attempts at approach: 1 Failed airway: no Airway not difficult SIGNATURE: Gilberto Reyes APRN.ASSOCIATE PROFESSOR OF LIBRARY SCIENCE PATIENT NAME: Jatin Koch II DATE: November 20, 2024 TIME: 11:09 AM CSN: [id number] [facility] 11-20-2024 Telephone encounter Note Pt recently had PPM implanted 11/09/[address] Robert Veloz's office (patient's implanting EP doctor) to notify clinic about the RA lead's threshold is at 4.5V @ 0.4ms. Was able to speak to device clinic and faxed report over to [phone] [facility] 11-20-2024 Miscellaneous Notes Pt recently had PPM implanted 11/09/[address] Robert Veloz's office (patient's implanting EP doctor) to notify clinic about the RA lead's threshold is at 4.5V @ 0.4ms. Was able to speak to device clinic and faxed report over to [phone] documented in this encounter [facility] 11-20-2024 Note Patient Name: Arturo in [place] [...] is malignant. - (more content not included)... [facility] 11-20-2024 Telephone encounter Note Spoke to Patient, arrival time of 230pm on 11/23 and no special instructions [facility] 11-20-2024 Miscellaneous Notes Spoke to Patient, arrival time of 230pm on 11/23 and no special instructions Patient states he has already met with the contact lens flashing puncher and has upcoming follow up. Richardson Cantu RN PSS- I scheduled Lung Sim on 11/23/2024 at 3:00pm Nurse visit at 2:45pm for IV contrast Arrival time of 2:30pm, No special instructions. Thank you, Zaida Monsalve PSS/RT: please schedule SIM 11/23 treating lung with IV contrast, esophageal contrast, 4DCT Consent signed Needs nurse appt for IV start day of SIM Nurse ed today Plastics Production Machine Operator consult(order pending signature) Thanks Richadrson Cantu RN documented in this encounter [facility] 11-17-2024 Note HNO ID: [id number] Author: EZRA LIZAMA MD Service: ? Author Type: Physician Type: Progress Notes Filed: 12/11/2024 06:04 Note Text: Radiation Oncology - New Patient/Consult Note PATIENT NAME: Jatin Koch II PATIENT REQUESTING PHYSICIAN: Dr. Perez DIAGNOSIS: Locally advanced non-small cell lung cancer (squamous cell carcinoma arising from the right chest). PATIENT IDENTIFICATION: This patient was seen in the Department of Radiation Oncology at the [facility] with Ezra Lizama MD. He was accompanied [...] improvement, his scheduled an appointment with a boom operator, who ordered a CT scan with contrast. [...] (ANTIVERT) 25 mg (more content not included)... [facility] 11-17-2024 Note HNO ID: [id number] Author: RICHARDSON CANTU RN Service: ? Author Type: Registered Nurse Type: Progress Notes Filed: 11/17/2024 16:03 Note Text: Radiation Therapy - Patient Education Note PATIENT NAME: Jatin Koch II PATIENT November 17, 2024 [facility] FACILITY/LOCATION: [facility] READINESS TO LEARN Cognitive Ability: Alert and [...] need for social work, van service, and contact lens flashing puncher. Patient has an Onbody or Implanted device: Yes, person notified was: Dr. Lizama and team Signed by: Richardson Cantu RN [facility] 11-17-2024 History of Presen t illness Narrative Radiation Therapy - Patient Education Note PATIENT NAME: Jatin Koch II PATIENT November 17, 2024 [facility] FACILITY/LOCATION: [facility] READINESS TO LEARN Cognitive Ability: Alert and [...] need for social work, van service, and contact lens flashing puncher. Patient has an Onbody or Implanted device: Yes, person notified was: Dr. Lizama and team Signed by: Richardson Cantu RN documented in this encounter [facility] 11-17-2024 Telephone encounter Note Patient states he has already met with the contact lens flashing puncher and has upcoming follow up. Richardson Cantu RN [facility] 11-17-2024 Telephone encounter Note PSS- I scheduled Lung Sim on 11/23/2024 at 3:00pm Nurse visit at 2:45pm for IV contrast Arrival time of 2:30pm, No special instructions. Thank you, Zaida Monsalve [facility] Work Phone: 11-17-2024 Telephone encounter Note Images from the original note were not included. Will schedule once RTC date is deteremined for XRT. Radha Perdue [facility] 11-17-2024 Instructions Kvng Perez MD - 11/17/2024 2:41 PM EDT Chemo teach for weekly carbo taxol Schedule chemo in 2 weeks on or after the start day of radiation F/u in 2 weeks documented in this encounter [facility] 11-17-2024 Telephone encounter Note PSS/RT: please schedule SIM 11/23 treating lung with IV contrast, esophageal contrast, 4DCT Consent signed Needs nurse appt for IV start day of [facility] Nurse ed today Plastics Production Machine Operator consult(order pending signature) Thanks Richardson Cantu RN [facility] 11-17-2024 History of Presen t illness Narrative Images from the original note were not included. PATIENT NAME: Jatin Koch II CLINIC NO.: [id number] ATTENDING PHYSICIAN: Kvng Perez MD DATE OF SERVICE: 11/17/[address] Chip Carbajal [address] [address] thank you for referring Jatin Koch II [...] pk/day for 40yrs. 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 C/o hemoptysis. C/o [...] in [address] Chip Carbajal [address] [place] [phone] thank you for allowing me to participate in Jatin Koch II care, if there are any questions or concerns please do not hesitate to contact me at the number below. I spent a total of 20 minutes on the date of the service which included preparing to see the patient, jfoo-rt-domi patient care, completing clinical documentation, obtaining and/or reviewing separately obtained history, performing a medically appropriate examination, counseling and educating the patient/family/caregiver, ordering medications, tests, or procedures, communicating with other HCPs (not separately reported), independently interpreting results (not separately reported), communicating results to the patient/family/caregiver, and care coordination (not separately reported). Kvng Perez MD. Hematology/Medical Oncology [address] [address] [phone] CC: documented in this encounter [facility] 11-17-2024 Note HNO ID: [id number] Author: KVNG PEREZ MD Service: ? Author Type: Physician Type: Progress Notes Filed: 11/17/2024 15:17 Note Text: PATIENT NAME: Jatin Koch II CLINIC NO.: [id number] ATTENDING PHYSICIAN: Kvng Perez MD DATE OF SERVICE: 11/17/[address] Chip Carbajal [address] [place] [phone] thank you for referring Jatin Koch II [...] pk/day for 40yrs. 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 C/o hemoptysis. C/o [...] AST , ALT (more content not included)... [facility] 11-17-2024 Miscellaneous Notes [facility] cancer center called in asking if pt is PPM dependent. New PPM implanted 11/09/24. Planning radiation tx to his lung. No treatment plan yet. First device check scheduled 12/07/24. Not dependent at implant. Asked to call us back when radiation plans are known. documented in this encounter [facility] 11-17-2024 Telephone encounter Note [facility] center called in asking if pt is PPM dependent. New PPM implanted 11/09/24. Planning radiation tx to his lung. No treatment plan yet. First device check scheduled 12/07/24. Not dependent at implant. Asked to call us back when radiation plans are known. [facility] 11-17-2024 Note HNO ID: [id number] Author: RICHARDOSN CANTU RN Service: ? Author Type: Registered Nurse Type: Progress Notes Filed: 12/04/2024 23:40 Note Text: Pacemaker/Defibrillator?Yes Previous Cancer(s)? Basal cell carcinoma left forearm Previous Radiation?N Lupus/Scleroderma?N On body monitoring device? N Richardson Cantu RN [facility] 11-17-2024 Note Education (MAYITOA) JATIN KOCH ([id number]) 1960 M Date Time Provider Department 11/17/24 [...] Encounter Status:Closed by RICHARDSON CANTU on 11/17/24 [facility] 11-15-2024 Instructions Regina Robertson MD - 11/15/2024 [...] and until procedure is done Please call [phone] for additional information prior to bronchoscopy if you have questions You will need someone to bring you to this procedure and stay for the entire duration of procedure as you cannot drive home after procedure documented in this encounter [facility] 11-15-2024 History of Presen t illness Narrative INTERVENTIONAL PULMONARY MEDICINE CONSULTATION PLEASE DO NOT REMOVE FROM THE CHART OR MODIFY PRINTED COPY Patient Name: Jatin Koch II PRIMARY CARE PHYSICIAN: Carlso Collins APRN.SCOUT EXECUTIVE REFERRING PHYSICIAN: Dr. 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 My final recommendations/evaluation will be communicated back to the requesting physician by way of shared medical record or letter via US mail. Recording using Kamego software for draft documentation of the visit was discussed with the patient/authorized union representative; all questions welcomed and answered. Patient/authorized union representative agreed to proceed CHIEF COMPLAINT: Bronchial [...] improvement, his scheduled an appointment with a boom operator, who ordered a CT scan with contrast. [...] a family/ friend with them as their lease purchase truck driver post anesthesia. All questions were answered to the best of my ability. Written and verbal health teaching given to patient, patient verbalizes understanding and agrees with treatment plan. Electronically Signed: Regina Robertson MD November 15, 2024 12:06 PM documented in this encounter [facility] 11-15-2024 Note HNO ID: [id number] Author: REGINA ROBERTSON MD Service: ? Author Type: Physician Type: Progress Notes Filed: 11/15/2024 12:09 Note Text: INTERVENTIONAL PULMONARY MEDICINE CONSULTATION PLEASE DO NOT REMOVE FROM THE CHART OR MODIFY PRINTED COPY Patient Name: Jatin Koch II PRIMARY CARE PHYSICIAN: Carlos Collins APRN.SCOUT EXECUTIVE REFERRING PHYSICIAN: Dr. 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 My final recommendations/evaluation will be communicated back to the requesting physician by way of shared medical record or letter via US mail. Recording using Kamego software for draft documentation of the visit was discussed with the patient/authorized union representative; all questions welcomed and answered. Patient/authorized union representative agreed to proceed CHIEF COMPLAINT: Bronchial [...] improvement, his scheduled an appointment with a boom operator, who ordered a CT scan with contrast. [...] oz (87.7kg) SpO (more content not included)... [facility] 11-08-2024 History of Presen t illness Narrative [...] (Patient not taking: Reported on 11/08/2024) PEPSIN/BLESSING/OXBILE/PANCREAT/BET (SRCEEU-UVI-KS VDVE-LJR-LMF-PAP ORAL) Take by mouth. 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 With involvement of the lymph node, history of diverticulitis, Patient was seen at [facility] following syncope hardware with about [...] History: Diagnosis Date Arthritis Hypertension Lung cancer ([facility]) No data recorded No data recorded No data recorded Past Surgical History: Procedure Laterality Date SKIN BIOPSY basal cell carcinoma removed from left latter day TONSILLECTOMY TURP / TRANSURETHRAL INCISION / DRAINAGE [...] the emergency room to be transferred to [facility] for pacemaker evaluation to suggest 2D echo and nuclear stress test Follow-up with me in 6 months if needed TODAYS ORDERS Orders Placed This Encounter Procedures POCT EKG FOLLOW UP Return in about 6 months (around 05/11/2025). PCP: CARLOS COLLINS, VINAY-SCOUT EXECUTIVE Referring Physician: Alina Ragland MD [address] [place] [phone] documented in this encounter [facility] 11-08-2024 Telephone encounter Note FMLA paperwork signed and original left at front desk worker for Eloy to picking belt operator on Wednesday. Original placed in scanning. Mamie Zepeda MA [facility] 11-08-2024 Miscellaneous Notes FMLA paperwork signed and original left at front desk worker for Eloy to picking belt operator on Wednesday. Original placed in scanning. Mamie Zepeda MA FMLA paperwork completed for family member has been completed and placed in folder to be signed. Naz Hooks MA documented in this encounter [facility] 11-07-2024 Miscellaneous Notes Pt was in ER at [facility] twice over the weekend. First pt diagnosed with vertigo and sent home on Meclizine. Pt became bradycardic and was then admitted to [facility] with bradycardia and pneumonia. Pt discharged home on Levaquin, taper prednisone and continues meclizine as needed. He is on a holter monitor and sees [facility] cardiology tomorrow. Pt scheduled for AV/RYAN WednesdayNovember 10. just wanted providers updated. Reyna: please obtain records AV/RYAN: BREANNA Marie RN documented in this encounter [facility] 11-07-2024 Telephone encounter Note Pt was in ER at [facility] twice over the weekend. First pt diagnosed with vertigo and sent home on Meclizine. Pt became bradycardic and was then admitted to [facility] with bradycardia and pneumonia. Pt discharged home on Levaquin, taper prednisone and continues meclizine as needed. He is on a holter monitor and sees [facility] cardiology tomorrow. Pt scheduled for AV/RYAN WednesdayNovember 10. just wanted providers updated. Reyna: please obtain records AV/RYAN: BREANNA Marie RN [facility] 11-07-2024 Telephone encounter Note [facility] paperwork completed for family member has been completed and placed in folder to be signed. Naz Hooks MA [facility] 11-07-2024 Miscellaneous Notes Called patient to remind them to bring their most current copy of their medication list with them to their appt. Patient verbalizes understanding. documented in this encounter [facility] 11-07-2024 Telephone encounter Note Called patient to remind them to bring their most current copy of their medication list with them to their appt. Patient verbalizes understanding. [facility] 10-31-2024 Note HNO ID: [id number] Author: NANCY FERRER RN Service: ? Author [...] on anticoagulants/anti-plt therapy?: No Nursing Considerations: (ie: shelter, TB, respiratory isolation, clinical trial, Specific protocol etc.) none Additional notes to the shell press operator: OSH Bronchoscopy showed an mass obstructing BI, patient requested IP evaluation. SqCell Carcinoma. T4N2M0 IIIB for now, starting chemorads Consultation request/referral by: Referring Physician: Dr. Kvng Perez Address: [facility] [place] Phone #: [phone] Fax #: [phone] Reviewed by: MD Maryuri Aguilar MD October 31, 2024 4:33 PM Addendum: CBC with diff: No results found for this basename: WBC,RBC,HB,HCT,MCV,MCH,MCHC,RDWC V,PLT,MPV,NEUTP,LYMPHP,MONOP,EOD INP,BASOP,ABSNEU T,ABSLYM,ABSMONO,ABSEOSIN,ABSBAS O No results found for: K No results found for: NA No results found for: BUN No results found for: CREAT [facility] 10-30-2024 Note HNO ID: [id number] Author: JESUSITA PABON RD Service: ? Author Type: Registered Dietitian Type: Progress Notes Filed: 2024 14:55 Note Text: [facility] Nutrition Therapy: Virtual Consult - Initial Assessment I have communicated my name and active licensure. The patient?s identity and physical location were verified at the time of this visit. Either the patient or their legal union representative has been informed of the risks [...] October 30, 2024 TIME: 2:39 PM PAGER: [facility] 10-30-2024 Note Education (NUTRMA) JATIN KOCH ([id number]) 1960 M Date Time Provider Department 10/30/24 2:30 PM JESUSITA PABON Reason for Visit: Nutrition Telephone [2013] Visit Diagnosis:Malignant neoplasm of lower lobe of right lung (HCC) [C34.31] Order(s):CONSULT TO ONCOLOGY NUTRITION [[id number]] Order #: [id number]: 1 During your visit today, we recorded [...] Encounter Status:Closed by JESUSITA PABON on 11/02/24 [facility] 10-27-2024 Telephone encounter Note Referring Physician: Dr. Kvng Perez Address: [facility] Phone #: [phone] Fax #: [phone] Reason for referral: Malignant neoplasm of lower lobe of right lung Is there CareEverywhere Records: Yes Is there Imaging available: Yes - Recent CT: Yes - Date of CT: 10/18/2024 [facility] 10-27-2024 Miscellaneous Notes Referring Physician: Dr. Kvng Perez Address: [facility] [place] Phone #: [phone] Fax #: [phone] Reason for referral: Malignant neoplasm of lower lobe of right lung Is there CareEverywhere Records: Yes Is there Imaging available: Yes - Recent CT: Yes - Date of CT: 10/18/2024 documented in this encounter [facility] 10-27-2024 Note Addended by: KVNG SEGUNDO on: 10/27/2024 09:57 AM Modules accepted: Orders [facility] 10-27-2024 Miscellaneous Notes Addended by: KVNG PEREZ on: 10/27/2024 09:57 AM Modules accepted: Orders documented in this encounter [facility] 10-27-2024 Instructions Knvg Perez MD - 10/27/2024 9:26 AM EDT Refer to radiation oncology Refer to interventional pulmonology Ordered MRI brain F/u in 2 weeks documented in this encounter [facility] 10-27-2024 History of Presen t illness Narrative Images from the original note were not included. PATIENT NAME: Jatin Koch II CLINIC NO.: [id number] ATTENDING PHYSICIAN: Kvng Perez MD DATE OF SERVICE: October 27, [address] Chip Carbajal [address] [place] [phone] thank you for referring Jatin Koch II for an opinion regarding Lung cancer. CHIEF COMPLAINT: Lung cancer HPI: Jatin Koch II is a 63 year old year old male with PMH of HTN referred to us for lung cancer. CT chest : PET scan: C/o cough and lost 30lbs. Quit smoking in 2017. Smoked 1 pk/day for 40yrs. 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 C/o hemoptysis. C/o [...] [address] Chip Carbajal [address] [phone] thank you for allowing me to participate in Jatin Koch II care, if there are any questions or concerns please do not hesitate to contact me at the number below. I spent a total of 60 minutes on the date of the service which included preparing to see the patient, ojsf-dn-[id number] patient care, completing clinical documentation, obtaining and/or reviewing separately obtained history, performing a medically appropriate examination, counseling and educating the patient/family/caregiver, ordering medications, tests, or procedures, communicating with other HCPs (not separately reported), independently interpreting results (not separately reported), communicating results to the patient/family/caregiver, and care coordination (not separately reported). Kvng Perez MD. Hematology/Medical Oncology [facility] [place] [phone] CC: Ravi has an irritating cough but has not coughed up blood since Wednesday, Low grade started Wednesday 102.2 chills on Wednesday (he does not take temp). He has been taking Tylenol to help minimize temps. Mamie Zepeda MA documented in this encounter [facility] 10-27-2024 Note HNO ID: [id number] Author: KVNG PEREZ MD Service: ? Author Type: Physician Type: Progress Notes Filed: 10/27/2024 09:56 Note Text: PATIENT NAME: Jatin Koch II CLINIC NO.: [id number] ATTENDING PHYSICIAN: Kvng Perez MD DATE OF SERVICE: October 27, [address] Chip Carbajal [address] [facility] [phone] thank you for referring Jatin Koch II for an opinion regarding Lung cancer. CHIEF COMPLAINT: Lung cancer HPI: Jatin Koch II is a 63 year old year old male with PMH of HTN referred to us for lung cancer. CT chest : PET scan: C/o cough and lost 30lbs. Quit smoking in 2017. Smoked 1 pk/day for 40yrs. 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 C/o hemoptysis. C/o [...] to auscultation, N (more content not included)... [facility] 10-27-2024 Note HNO ID: [id number] Author: MAMIE ZEPEDA MA Service: ? Author Type: Live Hanger Type: Progress Notes Filed: 10/27/2024 09:56 Note Text: Ravi has an irritating cough but has not coughed up blood since Wednesday, Low grade started Wednesday 102.2 chills on Wednesday (he does not take temp). He has been taking Tylenol to help minimize temps. Mamie Zepeda MA [facility] 06-29-2023 Evaluation + Plan note Diagnostic Tests PendingPSA Screen, Total 06/29/23 [facility] 06-29-2023 Hospital Discharg e instructions Patient Education 06/29/2023 09:10:43 Kidney Stones, Ynoc-bx-Dxls Kidney Stones Kidney stones are rock-like masses [...] Follow these instructions at home: Medicines Take xtcx-feb-vvrirdm and prescription medicines only as told by [...] provider. Document Revised: 02/02/2022 Document Reviewed: 02/02/2022 [employer] Patient Education 2022 [employer]. Follow Up Care 06/23/2022 09:07:35 With:SANDRA PALMA, VICTORIA Flores, URL Address: [address] 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)- Primary Bronchial obstruction Other diseases of trachea and bronchus Bronchiolar disease Other diseases of trachea and bronchus [facility] Diagnosis Malignant neoplasm of lower lobe of right lung (HCC)- Primary Bronchiolar disease Other diseases of trachea and bronchus [facility] Diagnosis AV block- Primary Unspecified atrioventricular block Squamous cell carcinoma of lung, unspecified laterality (CMS-HCC) Pacemaker Cardiac pacemaker in situ [facility] Pacemaker- [place]- Primary Cardiac pacemaker in situ [facility]* Diagnosis Pneumonia of right lower lobe due to methicillin resistant Staphylococcus aureus (MRSA) (HCC)- Primary documented in this encounter [facility] note* Diagnosis Malignant neoplasm of lower lobe of right lung (HCC)- Primary documented in this encounter [facility] note* Diagnosis Malignant neoplasm of lower lobe of right lung (HCC)- Primary documented in this encounter [facility] note* Diagnosis Malignant neoplasm of lower lobe of right lung (HCC)- Primary documented in this encounter [facility] note* Diagnosis Malignant neoplasm of lower lobe of right lung (HCC)- Primary documented in this encounter [facility] note* Diagnosis Malignant neoplasm of lower lobe of right lung (HCC) documented in this encounter [facility] note* Diagnosis Pacemaker- Primary Cardiac pacemaker in situ AV block Unspecified atrioventricular block Squamous cell carcinoma of lung, unspecified laterality (CMS-HCC) documented [facility]* Diagnosis Pacemaker- Primary Cardiac pacemaker in situ documented [facility] this [facility]* Diagnosis Malignant neoplasm of lower lobe of right lung (HCC)- Primary [facility] Narrative No data available for this section [facility] InstructionsNot on filedocumented in this encounter [facility] [...] available for this section [facility] reason for visit Narrative* Auth/Cert (Routine) Specialty Diagnoses / Procedures Referred By Beti t Referred To Contact ADMITTING 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] Procedures [facility] INCL FLUOR GDNCE DX W/CELL WASHG SPX BRONCHOSCOPY FLEXIBLE ADULT Admitting [address] [id number] Referral ID Status Reason Start Date Expiration Date Visits Re quested Visits Authorized [id number] 1 1 [facility] Summary Purpose Family History Relationship Condition Age [...] 10: 00am Wheezing, Shortness of breath, cough [facility] 2024 11:24am Chief Complaint Admit Date consistent cough (2 months) August 31, 2024 9:38am R05.3 August 31, 2024 10: 00am Wheezing, Shortness of breath, cough [facility] 2024 11:24am Unknown October 16, 2024 8:00am Additional Source Comments (unrecognized sect ion and content) No Status Records FoundNo Status Records FoundNo Status Records FoundNo Status Records FoundNo Status Records FoundNo Status Records FoundNo Status Records Found INFORMATION SOURCE (unrecogn ized section and content) DATE CREATED AUTHOR 11/20/2022 [facility] DATE CREATED AUTHOR AUTHOR'S ORGANIZ ATION 10/26/2024 [facility] DATE CREATED AUTHOR AUTHOR'S ORGANIZ ATION 11/16/2024 [facility] DATE CREATED AUTHOR AUTHOR'S ORGANIZ ATION 11/23/2024 [facility] DATE CREATED AUTHOR AUTHOR'S ORGANIZ ATION 12/08/2024 [facility] DATE CREATED AUTHOR AUTHOR'S ORGANIZ ATION 12/13/2024 [facility] DATE CREATED AUTHOR AUTHOR'S ORGANIZ ATION 12/13/2024 Sadiq Parks [facility] Patient Care team informatio n (unrecognized [...] October 16, 2024 End: October 16, 2024 Airconditioning Drafting Officer Relationship Specialty Start Date End Date Doug Bowles PCP - General 02/23/06 Airconditioning Drafting Officer Relationship Specialty Start Date End Date Carlos Collins APRN.CNP [address] [place] [phone] PCP - General Nurse Practitioner 10/27/24 Airconditioning Drafting Officer Relationship Specialty Start Date End Date Alina Ragland MD [address] [place] [phone] PCP - General Family Medicine 09/30/20 Airconditioning Drafting Officer Relationship Specialty Start Date End Date Carlos Collins, WHOLESALE ACCOUNT MANAGER.SCOUT EXECUTIVE [address] [place] [phone] PCP - General Nurse Practitioner 10/27/24 Airconditioning Drafting Officer Relationship Specialty Start Date End Date Carlos Collins, WHOLESALE ACCOUNT MANAGER.SCOUT EXECUTIVE [address] [place] [phone] PCP - General Nurse Practitioner 10/27/24 Airconditioning Drafting Officer Relationship Specialty Start Date End Date DennisCarlos mascorro, WHOLESALE ACCOUNT MANAGER-SCOUT EXECUTIVE [address] [place] [phone] PCP - General Nurse Practitioner 11/08/24 Airconditioning Drafting Officer Relationship Specialty Start Date End Date DennisCarlos mascorro L, WHOLESALE ACCOUNT MANAGER-SCOUT EXECUTIVE [address] [place] [phone] PCP - General Nurse Practitioner 11/08/24 Airconditioning Drafting Officer Relationship Specialty Start Date End Date DennisCarlos mascorro, WHOLESALE ACCOUNT MANAGER.SCOUT EXECUTIVE [address] [place] [phone] PCP - General Nurse Practitioner 10/27/24 Airconditioning Drafting Officer Relationship Specialty Start Date End Date DennisCarlos mascorro L, WHOLESALE ACCOUNT MANAGER-SCOUT EXECUTIVE [address] [place] [address], [place] [phone] PCP - General Nurse Practitioner 11/08/24 Airconditioning Drafting Officer Relationship Specialty Start Date End Date DennisCarlos mascorro L, WHOLESALE ACCOUNT MANAGER.SCOUT EXECUTIVE [address] [place] [phone] PCP - General Nurse Practitioner 10/27/24 Airconditioning Drafting Officer Relationship Specialty Start Date End Date Dennis, Carlos L, WHOLESALE ACCOUNT MANAGER.SCOUT EXECUTIVE [address] [place] [phone] PCP - General Nurse Practitioner 10/27/24 Airconditioning Drafting Officer Relationship Specialty Start Date End Date Dennis, Carlos L, WHOLESALE ACCOUNT MANAGER.SCOUT EXECUTIVE [address] [place] [address] [id number] PCP - General Nurse Practitioner 10/27/24 Airconditioning Drafting Officer Relationship Specialty Start Date End Date Dennis, Carlos L, WHOLESALE ACCOUNT MANAGER.SCOUT EXECUTIVE [address] [place] [address] [phone] PCP - General Nurse Practitioner 10/27/24 Airconditioning Drafting Officer Relationship Specialty Start Date End Date Dennis, Carlos L, WHOLESALE ACCOUNT MANAGER-SCOUT EXECUTIVE [address] [place] [address] [id number] PCP - General Nurse Practitioner 11/08/24 Airconditioning Drafting Officer Relationship Specialty Start Date End Date Dennis, Carlos L, WHOLESALE ACCOUNT MANAGER-SCOUT EXECUTIVE [address] [place] [address] [phone] PCP - General Nurse Practitioner 11/08/24 Airconditioning Drafting Officer Relationship Specialty Start Date End Date Dennis, Carlos L, WHOLESALE ACCOUNT MANAGER.SCOUT EXECUTIVE [address] [place] [address] [id number] PCP - General Nurse Practitioner 10/27/24 Airconditioning Drafting Officer Relationship Specialty Start Date End Date Dennis, Carlos L, WHOLESALE ACCOUNT MANAGER.SCOUT EXECUTIVE [address] [place] [address] [id number] PCP - General Nurse Practitioner 10/27/24 Airconditioning Drafting Officer Relationship Specialty Start Date End Date Dennis, Carlos L, WHOLESALE ACCOUNT MANAGER.SCOUT EXECUTIVE [address] [place] [address] [phone] PCP - General Nurse Practitioner 10/27/24 Airconditioning Drafting Officer Relationship Specialty Start Date End Date Dennis, Carlos L, WHOLESALE ACCOUNT MANAGER.SCOUT EXECUTIVE [address] [place] [address] [phone] PCP - General Nurse Practitioner 10/27/24 Airconditioning Drafting Officer Relationship Specialty Start Date End Date Dennis, Carlos L, WHOLESALE ACCOUNT MANAGER.SCOUT EXECUTIVE [address] [place] [address], [place] [address] PCP - General Nurse Practitioner 10/27/24 Airconditioning Drafting Officer Relationship Specialty Start Date End Date Dennis, Carlos L, WHOLESALE ACCOUNT MANAGER.SCOUT EXECUTIVE [address] [place] [address] [phone] PCP - General Nurse Practitioner 10/27/24 Airconditioning Drafting Officer Relationship Specialty Start Date End Date Dennis, Carlos L, WHOLESALE ACCOUNT MANAGER.SCOUT EXECUTIVE [address] [place] [address] [phone] PCP - General Nurse Practitioner 10/27/24 Airconditioning Drafting Officer Relationship Specialty Start Date End Date Dennis, Carlos L, WHOLESALE ACCOUNT MANAGER.SCOUT EXECUTIVE [address] [place] [address] [phone] PCP - General Nurse Practitioner 10/27/24 Tiffanie Hargrove RN [address] [place] [address] Specialty Entry Level Account Manager Hematology/Oncology 11/29/24 Kvng Perez MD [address] [place] [address] Physician Hematology/Oncology 11/29/24 Airconditioning Drafting Officer Relationship Specialty Start Date End Date Dennis, Carlos L, WHOLESALE ACCOUNT MANAGER.SCOUT EXECUTIVE [address] [place] [address] [id number] PCP - General Nurse Practitioner 10/27/24 Airconditioning Drafting Officer Relationship Specialty Start Date End Date DennisCarlos mascorro L, WHOLESALE ACCOUNT MANAGER-SCOUT EXECUTIVE [address] [place] [address] [id number] PCP - General Nurse Practitioner 11/08/24 Airconditioning Drafting Officer Relationship Specialty Start Date End Date DennisCalros mascorro L, WHOLESALE ACCOUNT MANAGER-SCOUT EXECUTIVE [address] [place] [address] [id number] PCP - General Nurse Practitioner 11/08/24 Airconditioning Drafting Officer Relationship Specialty Start Date End Date DennisCarlos mascorro L, WHOLESALE ACCOUNT MANAGER.SCOUT EXECUTIVE [address] [place] [address] [phone] PCP - General Nurse Practitioner 10/27/24 Tiffanie Hargrove RN [address] [facility] [place] [address] Specialty Entry Level Account Manager Hematology/Oncology 11/29/24 Kvng Perez MD [address] [facility] [place] [address] Physician Hematology/Oncology 11/29/24 Airconditioning Drafting Officer Relationship Specialty Start Date End Date DennisCarlos mascorro L, WHOLESALE ACCOUNT MANAGER.SCOUT EXECUTIVE [address] [place] [address] [id number] PCP - General Nurse Practitioner 10/27/24 Tiffanie Hargrove, RN [address] [facility] [address] Specialty Entry Level Account Manager Hematology/Oncology 11/29/24 Kvng Perez MD [address] [facility] [address] Physician Hematology/Oncology 11/29/24 Airconditioning Drafting Officer Relationship Specialty Start Date End Date Carlos Collins, WHOLESALE ACCOUNT MANAGER.SCOUT EXECUTIVE [facility] [place] [address] PCP - General Nurse Practitioner 10/27/24 Tiffanie Hargrove, PRITI [address] [place] [address] Specialty Entry Level Account Manager Hematology/Oncology 11/29/24 Kvng Perez MD [address] [place] [address] Physician Hematology/Oncology 11/29/24 Airconditioning Drafting Officer Relationship Specialty Start Date End Date Carlos Collins, WHOLESALE ACCOUNT MANAGER.SCOUT EXECUTIVE [address] [place] [address] [id number] PCP - General Nurse Practitioner 10/27/24 Tiffanie Hargrove RN [address] [place] [address] Specialty Entry Level Account Manager Hematology/Oncology 11/29/24 Kvng Perez MD [address] [place] [address] Physician Hematology/Oncology 11/29/24 Airconditioning Drafting Officer Relationship Specialty Start Date End Date Carlos Collins, WHOLESALE ACCOUNT MANAGER.SCOUT EXECUTIVE [address] [place] [address] [phone] PCP - General Nurse Practitioner 10/27/24 Tiffanie Hargrove, RN [address] [place] [address] Specialty Entry Level Account Manager Hematology/Oncology 11/29/24 Kvng Perez MD [address] [place] [address] Physician Hematology/Oncology 11/29/24 Airconditioning Drafting Officer Relationship Specialty Start Date End Date Carlos Collins WHOLESALE ACCOUNT MANAGER.SCOUT EXECUTIVE [address] [place] [address] [phone] PCP - General Nurse Practitioner 10/27/24 Tiffanie Hargrove RN [address] [place] [address] Specialty Entry Level Account Manager Hematology/Oncology 11/29/24 Kvng Perez MD [address] [place] [address] Physician Hematology/Oncology 11/29/24 Airconditioning Drafting Officer Relationship Specialty Start Date End Date Carlos Collins, WHOLESALE ACCOUNT MANAGER.SCOUT EXECUTIVE [address] [place] [address] [phone] PCP - General Nurse Practitioner 10/27/24 Tiffanie Hargrove RN [address] [place] [address] Specialty Entry Level Account Manager Hematology/Oncology 11/29/24 Kvng Perez MD [address] [place] [address] [place] [address] Physician Hematology/Oncology 11/29/24 Goals (unrecognized section and content) Goals may be documented in a n alternate section Source Comments (unrecognize d section and content) In the event this informatio n is protected by the Federal Confidentiality of Alcohol and Drug Abuse Patient Records regulations: The Federal rules restrict any use of the information to criminally investigate or prosecute any alcohol or drug abuse patient.[facility] the event this information is protected by the Federal Confidentiality of Alcohol and Drug Abuse Patient Records regulations: The Federal rules restrict any use of the information to criminally investigate or prosecute any alcohol or drug abuse patient.[facility]imaIn the event this information is protected by the Federal Confidentiality of Alcohol and Drug Abuse Patient Records regulations: The Federal rules restrict any use of the information to criminally investigate or prosecute any alcohol or drug abuse patient.[facility]imaIn the event this information is protected by the Federal Confidentiality of Alcohol and Drug Abuse Patient Records regulations: The Federal rules restrict any use of the information to criminally investigate or prosecute any alcohol or drug abuse patient.[facility]imaIn the event this information is protected by the Federal Confidentiality of Alcohol and Drug Abuse Patient Records regulations: The Federal rules restrict any use of the information to criminally investigate or prosecute any alcohol or drug abuse patient.[facility]imaIn the event this information is protected by the Federal Confidentiality of Alcohol and Drug Abuse Patient Records regulations: The Federal rules restrict any use of the information to criminally investigate or prosecute any alcohol or drug abuse patient.[facility]imaIn the event this information is protected by the Federal Confidentiality of Alcohol and Drug Abuse Patient Records regulations: The Federal rules restrict any use of the information to criminally investigate or prosecute any alcohol or drug abuse patient.[facility]imaIn the event this information is protected by the Federal Confidentiality of Alcohol and Drug Abuse Patient Records regulations: The Federal rules restrict any use of the information to criminally investigate or prosecute any alcohol or drug abuse patient.[facility]imaIn the event this information is protected by the Federal Confidentiality of Alcohol and Drug Abuse Patient Records regulations: The Federal rules restrict any use of the information to criminally investigate or prosecute any alcohol or drug abuse patient.[facility]imaIn the event this information is protected by the Federal Confidentiality of Alcohol and Drug Abuse Patient Records regulations: The Federal rules restrict any use of the information to criminally investigate or prosecute any alcohol or drug abuse patient.[facility]imaIn the event this information is protected by the Federal Confidentiality of Alcohol and Drug Abuse Patient Records regulations: The Federal rules restrict any use of the information to criminally investigate or prosecute any alcohol or drug abuse patient.[facility]imaIn the event this information is protected by the Federal Confidentiality of Alcohol and Drug Abuse Patient Records regulations: The Federal rules restrict any use of the information to criminally investigate or prosecute any alcohol or drug abuse patient.[facility]imaIn the event this information is protected by the Federal Confidentiality of Alcohol and Drug Abuse Patient Records regulations: The Federal rules restrict any use of the information to criminally investigate or prosecute any alcohol or drug abuse patient.[facility]imaIn the event this information is protected by the Federal Confidentiality of Alcohol and Drug Abuse Patient Records regulations: The Federal rules restrict any use of the information to criminally investigate or prosecute any alcohol or drug abuse patient.[facility]imaIn the event this information is protected by the Federal Confidentiality of Alcohol and Drug Abuse Patient Records regulations: The Federal rules restrict any use of the information to criminally investigate or prosecute any alcohol or drug abuse patient.[facility]imaIn the event this information is protected by the Federal Confidentiality of Alcohol and Drug Abuse Patient Records regulations: The Federal rules restrict any use of the information to criminally investigate or prosecute any alcohol or drug abuse patient.[facility]imaIn the event this information is protected by the Federal Confidentiality of Alcohol and Drug Abuse Patient Records regulations: The Federal rules restrict any use of the information to criminally investigate or prosecute any alcohol or drug abuse patient.[facility]imaIn the event this information is protected by the Federal Confidentiality of Alcohol and Drug Abuse Patient Records regulations: The Federal rules restrict any use of the information to criminally investigate or prosecute any alcohol or drug abuse patient.[facility]imaIn the event this information is protected by the Federal Confidentiality of Alcohol and Drug Abuse Patient Records regulations: The Federal rules restrict any use of the information to criminally investigate or prosecute any alcohol or drug abuse patient.[facility]imaIn the event this information is protected by the Federal Confidentiality of Alcohol and Drug Abuse Patient Records regulations: The Federal rules restrict any use of the information to criminally investigate or prosecute any alcohol or drug abuse patient.[facility]imaIn the event this information is protected by the Federal Confidentiality of Alcohol and Drug Abuse Patient Records regulations: The Federal rules restrict any use of the information to criminally investigate or prosecute any alcohol or drug abuse patient.[facility]imaIn the event this information is protected by the Federal Confidentiality of Alcohol and Drug Abuse Patient Records regulations: The Federal rules restrict any use of the information to criminally investigate or prosecute any alcohol or drug abuse patient.[facility]imaIn the event this information is protected by the Federal Confidentiality of Alcohol and Drug Abuse Patient Records regulations: The Federal rules restrict any use of the information to criminally investigate or prosecute any alcohol or drug abuse patient.[facility]imaIn the event this information is protected by the Federal Confidentiality of Alcohol and Drug Abuse Patient Records regulations: The Federal rules restrict any use of the information to criminally investigate or prosecute any alcohol or drug abuse patient.[facility]imaIn the event this information is protected by the Federal Confidentiality of Alcohol and Drug Abuse Patient Records regulations: The Federal rules restrict any use of the information to criminally investigate or prosecute any alcohol or drug abuse patient.[facility]imaIn the event this information is protected by the Federal Confidentiality of Alcohol and Drug Abuse Patient Records regulations: The Federal rules restrict any use of the information to criminally investigate or prosecute any alcohol or drug abuse patient.[facility]imaIn the event this information is protected by the Federal Confidentiality of Alcohol and Drug Abuse Patient Records regulations: The Federal rules restrict any use of the information to criminally investigate or prosecute any alcohol or drug abuse patient.[facility]imaIn the event this information is protected by the Federal Confidentiality of Alcohol and Drug Abuse Patient Records regulations: The Federal rules restrict any use of the information to criminally investigate or prosecute any alcohol or drug abuse patient.[facility]imaIn the event this information is protected by the Federal Confidentiality of Alcohol and Drug Abuse Patient Records regulations: The Federal rules restrict any use of the information to criminally investigate or prosecute any alcohol or drug abuse patient.[facility]imaIn the event this information is protected by the Federal Confidentiality of Alcohol and Drug Abuse Patient Records regulations: The Federal rules restrict any use of the information to criminally investigate or prosecute any alcohol or drug abuse patient.[facility]imaIn the event this information is protected by the Federal Confidentiality of Alcohol and Drug Abuse Patient Records regulations: The Federal rules restrict any use of the information to criminally investigate or prosecute any alcohol or drug abuse patient.[facility]imaIn the event this information is protected by the Federal Confidentiality of Alcohol and Drug Abuse Patient Records regulations: The Federal rules restrict any use of the information to criminally investigate or prosecute any alcohol or drug abuse patient.[facility] Reason for Visit (unrecogniz ed section and content) Reason Comments Consult Lung Cancer Reason Comments FMLA Paperwork Reason Comments 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 LOW HR ISSUES, RECENTLY DIAGNOSED [...] HIGH MDM 60 MINUTES Kvng Perez MD [facility] [place] [address] Phone: tel: fax: Referral ID Status Reason Start Date Expiration Date V isits Requested Visits Authorized [id number] Closed PCP Requested Referral 11/03/2024 10/27/2025 1 [...] HEAD/BRAIN W/O CONTRAST MATERIAL Kvng Perez MD [facility] [place] [address] Phone: tel: fax: [place] [phone] Referral ID Status Reason Start Date Expiration Date V isits Requested Visits Authorized [id number] Closed Auto-Generate d Referral 11/28/2024 06/13/2025 1 [...] BE BASED ON THE PRIMARY CLINICAL RECORDS. [facility] [email or web address] provides no warranty or guarantee of the accuracy or completeness of information in this document.
[2024-12-15] MEDS: MIDODRINE HCL 5 MG TABLET PO (21:30)
[2024-12-15] MEDS: DOXYCYCLINE HYCLATE 100 MG in 0.9 % SODIUM CHLORIDE 100 ML IV (21:31)
[2024-12-15] MEDS: DEXAMETHASONE SOD PHOS (PF) 10 MG/ML VIAL IV (21:31)
[2024-12-15] MEDS: IPRATROPIUM/ALBUTEROL SULFATE 3 ML AMPUL.NEB IH (21:35)
[2024-12-16] VITALS (23 sets, daily range): BP systolic 93–137; BP diastolic 60–69; PULSE 75–109; TEMP 36.3–36.8; O2SAT 93–97
[2024-12-16] MEDS: MIDODRINE HCL 5 MG TABLET 10 MG PO (00:48)
[2024-12-16] MEDS: HYDROCORTISONE SODIUM SUCC PF 100 MG/2 ML VIAL IVP (00:48)
[2024-12-16] MEDS: PIPERACILLIN SODIUM/TAZOBACTAM 3.375 GM in 0.9 % SODIUM CHLORIDE 50 ML IV ×4 (00:48→23:18)
[2024-12-16] MEDS: 0.9 % SODIUM CHLORIDE 500 ML 999 ML IV (00:49)
[2024-12-16] MEDS: VANCOMYCIN HCL 1,000 MG in 0.9 % SODIUM CHLORIDE 250 ML 250 MG IV (05:14)
[2024-12-16 06:51] LABS: Hematocrit 32.7 % (42.0-54.0); Hemoglobin 10.3 g/dL (14.0-18.0); Mean Corpuscular HGB Conc 31.5 g/dL (29.9-35.2); Mean Corpuscular Hemoglobin 27.4 pg (25.9-34.0); Mean Corpuscular Volume 87.0 fL (80.0-94.0); Platelet Count 206 10^3/uL (150-450); Red Blood Count 3.76 10^6/uL (4.70-6.10); White Blood Count 18.1 10^3/uL (4.0-11.0)
[2024-12-16 07:11] LABS: Alanine Aminotransferase 56 U/L (16-63); Albumin Globulin Ratio 0.6; Albumin Level 2.2 g/dL (3.4-5.0); Alkaline Phosphatase 73 U/L (46-116); Anion Gap 13.4; Aspartate Amino Transferase 16 U/L (15-37); Blood Urea Nitrogen 27.0 mg/dL (7.0-18.0); Calcium 11.2 mg/dL (8.5-10.1); Carbon Dioxide 24.2 mmol/L (21.0-32.0); Chloride 107 mmol/L (98-107); Estimated GFR (African America >60 (>=60 mL/min/1.73m^2); Estimated GFR (Non-African Ame >60 (>=60 mL/min/1.73m^2); Globulin 3.7 g/dL; Glucose 146 mg/dL (74-106); Magnesium 1.8 mg/dL (1.8-2.4); Potassium 4.6 mmol/L (3.5-5.1); Sodium 140 mmol/L (136-145); Total Protein 5.9 g/dL (6.4-8.2)
[2024-12-16 07:18] LABS: Lactate/Lactic Acid 2.6 mmol/L (0.4-2.0)
[2024-12-16] MEDS: IPRATROPIUM/ALBUTEROL SULFATE 3 ML AMPUL.NEB IH ×3 (07:47→20:33)
[2024-12-16] MEDS: DOXYCYCLINE HYCLATE 100 MG in 0.9 % SODIUM CHLORIDE 100 ML IV ×2 (08:12→19:50)
--- NOTE | 2024-12-16 08:39 | ECG_ITS ---
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 Measurements Intervals Spencer Rate: 90 P: 37 OH: 156 QRS: -80 QRSD: 153 T: 84 QT: 418 QTc: 514 Interpretive Statements NORMAL SINUS RHYTHM ELECTRONIC VENTRICULAR PACEMAKER ABNORMAL RHYTHM ECG Compared to ECG 12/15/2024 14:07:43 Sinus rhythm is now present Electronically Signed On 12-18-2024 20:26:05 EDT by AGATHA SALAZAR M.D.
--- NOTE | 2024-12-16 09:46 | P.IMHP_ITS ---
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 On assessment at bedside on regular nursing floor, patient resting comfortably in bed denies any chest pain, shortness of breath, nausea, or vomiting, no hemoptysis, at present, feels improved from presentation after started on broad spectrum antibiotics and receiving IV fluids. Presented to ER due to recurrence of fevers and chills, initial lab work showed WBC count 33 and lactic acid 6.1. On chart review, underwent bronchoscopy with debulking on 11/20/24, RLL remained not patent but bronchus intermedius > 80% after electrocautery with argon plasma coagulation. Cultures positive for MRSA, resistant to levofloxacin, sensitive to doxycycline, vancomycin, and linezolid. Review of Systems ROS Status of ROS 10 or more systems reviewed and unremark able except as noted in history and below [facility] Medical History (Updated 12/15/24 @ 18:28 by Jake Porras MD) Severe protein-calorie malnutrition ?E43 - Unspecified severe protein-calorie malnutrition (ICD-10) Hypomagnesemia ?E83.42 - Hypomagnesemia (ICD-10) Iron deficiency anemia ?D50.9 - Iron deficiency anemia, unspecified (ICD-10) Orthostatic hypotension ?I95.1 - Orthostatic hypotension (ICD-10) Right bundle branch block ?I45.10 - Unspecified right bundle-branch block (ICD-10) Intraventricular conduction delay ?I45.9 - Conduction disorder, unspecified (ICD-10) Squamous cell lung cancer ?C34.90 - Malignant neoplasm of unspecified part of unspecified bronchus or lung (ICD-10) Immune deficiency disorder ?D84.9 - Immunodeficiency, unspecified (ICD-10) Vertigo ?R42 - Dizziness and giddiness (ICD-10) Recurrent syncope ?R55 - Syncope and collapse (ICD-10) Acute kidney injury ?N17.9 - Acute kidney failure, unspecified (ICD-10) Leukocytosis ?D72.829 - Elevated white blood cell count, unspecified (ICD-10) Pneumonia ?J18.9 - Pneumonia, unspecified organism (ICD-10) Respiratory distress ?R06.03 - Acute respiratory distress (ICD-10) Lactic acidosis ?E87.20 - Acidosis, unspecified (ICD-10) Sepsis ?A41.9 - Sepsis, unspecified organism (ICD-10) Lung cancer, lower lobe ?C34.30 - Malignant neoplasm of lower lobe, unspecified bronchus or lung (ICD-10) RLL pneumonia ?J18.9 - Pneumonia, unspecified organism (ICD-10) Carpal tunnel syndrome ?G56.00 - Carpal tunnel syndrome, unspecified upper limb (ICD-10) Back pain ?M54.9 - Dorsalgia, unspecified (ICD-10) Arthritis ?M19.90 - Unspecified osteoarthritis, unspecified site (ICD-10) Snores ?R06.83 - Snoring (ICD-10) Sleep apnea ?G47.30 - Sleep apnea, unspecified (ICD-10) Influenza ?J11.1 - Influenza due to unidentified influenza virus with other respiratory manifestations (ICD-10) Right lower lobe lung mass ?R91.8 - Other nonspecific abnormal finding of lung field (ICD-10) Skin cancer ?C44.90 - Unspecified malignant neoplasm of skin, unspecified (ICD-10) Hypoxia ?R09.02 - Hypoxemia (ICD-10) 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 - Shortness of breath (ICD-10) ?U09.9 - Post covid-19 condition, unspecified (ICD-10) HTN (hypertension) ?I10 - Essential (primary) hypertension (ICD-10) KERR (dyspnea on exertion) ?R06.09 - Other forms of dyspnea (ICD-10) Pneumonia ?J18.9 - Pneumonia, unspecified organism (ICD-10) COVID-19 ?U07.1 - COVID-19 (ICD-10) History of COVID-19 ?Z86.16 - Personal history of COVID-19 (ICD-10) Surgical History (Updated 10/12/24 @ 12:46 by Macy Goodrich NP) H/O transurethral resection of prostate ?Z98.890 - Other specified postprocedural states (ICD-10) ?Z90.79 - Acquired absence of other genital organ(s) (ICD-10) History of colonoscopy ?Z98.890 - Other specified postprocedural states (ICD-10) History of myringotomy ?Z98.890 - Other specified postprocedural states (ICD-10) History of carpal tunnel release ?Z98.890 - Other specified postprocedural states (ICD-10) History of carpal tunnel surgery ?Z98.890 - Other specified postprocedural states (ICD-10) History of tonsillectomy ?Z90.89 - Acquired absence of other organs (ICD-10) Family History (Updated 10/06/24 @ 23:50 by Svetlana Kimball RN) Father Family history of myocardial infarction Son Family history of stroke Other Family history of CHF (congestive heart failure) Social History (Updated 11/04/24 @ 02:55 by Mary Ellen Mary) Within the past year, how often did you have a drink containing alcohol: never Score interpretation: A score less than 4 is consistent with normal alcohol consumption. Smoking status: Former smoker Non-prescribed substance use: denies use Previous occupational history: retired Highest level of school completed/degree received: Associate degree: academic program Are you now , , , , never or living with a partner: In a typical week, how many times do you talk on the telephone with family, friends, or neighbors: once per week How often do you get together with friends or relatives: once per week Little interest or pleasure in doing things: not at all Feeling down, depressed, or hopeless: not at all Do you think of yourself as: straight/heterosexual Gender Identity: male Meds Home Medications and Allergies Home Medications ?Medication ?Instructions ?Recorded ?Confirmed ?Type acetaminophen 325 mg tablet 650 mg PO Q6H PRN pain 07/0812/15/24 History (Tylenol) dextromethorphan-guaifenesin 30 1 tab PO DAILY 5 12/15/24 History mg-600 mg tablet extended [id number] hr (Mucinex DM) fluticasone propionate 50 1 spray intranasal DAILY PRN nasal 10/12/24 12/15/24 History mcg/actuation nasal congestion spray,suspension (24 Hour Allergy Relief) yukfyabsnuci-rtdymnwn-srzipx 1 tab PO DAILY 10/12/24 0 12/15/24 History tablet (Multivitamin 50 Plus tablet) benzonatate 200 mg capsule 200 mg PO DAILY PRN cough 0 11/02/24 12/15/24 History metoprolol succinate 25 mg 25 mg PO .QD 11/03/2412/15 History tablet,extended release 24 hr albuterol sulfate 2.5 mg/3 mL 2.5 mg inhalation Q6H [place] N 12/15/24 12/15/24 History (0.083 %) solution for nebulization shortness of breat h or wheezing ondansetron HCl 8 mg tablet 8 mg PO Q12H PRN nausea an d 12/15/24 12/15/24 History vomiting prochlorperazine maleate 10 mg 10 mg PO Q12H PRN nause a and 12/15/24 12/15/24 History tablet vomiting albuterol sulfate 90 mcg/actuation 2 puff inhalation Q 4H PRN 12/16/24 12/16/24 History aerosol inhaler shortness of breath or wheez ing meclizine 25 mg tablet 25 mg PO TID PRN dizziness 0 12/16/24 12/16/24 History Allergies Allergy/AdvReac Type Severity Reaction Status Date / Time codeine Allergy Severe Flushing Verified 12/15/24 13:56 sulfamethoxazole (From AdvReac Severe difficulty Verified 12/15/24 13:56 Bactrim) urinating trimethoprim (From Bactrim) AdvReac Severe Unknown Verified 12/15/24 13:56 Exam Narrative Exam Narrative: Gen.: Awake, alert, in no distress Head: Normocephalic, atraumatic ENT: Moist mucous membranes Respiratory: No respiratory distress, lungs clear bilaterally, no significant wheezes, diminished in RLL Cardio: Regular rate and rhythm Gastrointestinal: Abdomen is soft, nondistended and nontender to palpation Extremities: Moves extremities equally Psych: Normal mood and affect Neuro: No focal neuro deficit Skin: Warm, dry, intact Constitutional Vital Signs, click to edit/add: Last Vital Signs Temp 97.6 F 12/16/24 08:00 Pulse 96 H 12/16/24 08:00 Resp 20 12/16/24 08:00 BP 116/60 12/16/24 08:00 Pulse Ox 97 12/16/24 08:00 O2 Del Method Room Air 12/16/24 08:00 Internal Medicine - H&P: Reslt Labs Labs: Short CBC 12/15/24 12/16/24 Range/Units 14:08 06:40 WBC 33.6 H* 18.1 H (4.0-11.0) 10^3/uL Hgb 13.4 L 10.3 L (14.0-18.0) g/dL Hct 43.2 32.7 L (42.0-54.0) % Plt Count 382 206 (150-450) 10^3/uL BMP 12/15/24 12/16/24 14:08 06:40 Sodium 138 140 Potassium 4.6 4.6 Chloride 97 L 107 Carbon Dioxide 25.4 24.2 BUN 34.0 H 27.0 H Creatinine 1.17 0.77 Glucose 125 H 146 H Calcium 13.7 H* 11.2 H Liver Function 12/15/24 12/16/24 Range/Units 14:08 06:40 Total Bilirubin 0.6 0.5 (0.2-1.0) mg/dL Direct Bilirubin 0.2 (0.0-0.2) mg/dL AST 23 16 (15-37) U/L ALT 88 H 56 (16-63) U/L Alkaline Phosphatase 106 73 (46-116) U/L Albumin 3.2 L 2.2 L (3.4-5.0) g/dL Urine 12/15/24 Range/Units 15:40 Urine Color Yellow (YELLOW) Urine Clarity Clear (CLEAR) Urine pH 6.0 (5.0-9.0) Ur Specific [place] 1.015 (1.005-1.025) Urine Protein Trace (NEG/TRACE) mg/dL Urine Glucose (UA) Negative (NEGATIVE) mg/dL Urinary Catheter Management Urinary Catheter Management Straight: Cath placed during this visit: yes Urethral indwelling: No Insertion date: 12/15/24 Insertion time: 15:45 Assessment and Plan Assessment and Plan (1) Postobstructive pneumonia: (2) Squamous cell lung cancer: (3) Sepsis: (4) History of COVID-19: Plan Regina Roa is a 64 y/o M h/o 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 1. Sepsis 2/2 post-obstructive pneumonia in the setting of R lung squamous cell carcinoma not yet initiated chemo-radiation - Presented to ER due to recurrence of fevers and chills, initial lab work showed HR > 100, WBC count 33 and lactic acid 6.1. - On chart review, underwent bronchoscopy at [facility] with debulking on 11/20/24, RLL remained not patent but bronchus intermedius > 80% after electrocautery with argon plasma coagulation. Cultures positive for MRSA, resistant to levofloxacin, sensitive to doxycycline, vancomycin, and linezolid. - continue given hypotension and poor penetration, continue broad spectrum antibiotics with zosyn, vanc, and doxycycline - continue IV fluid boluses to maintain MAP > 65, trend lactic acid - blood and sputum cultures ordered - PTH and PTHrP ordered on admission for elevated calcium - no indication for steroids at this time - consult pulmonology to determine extended course of antibiotics vs transfer to outside facility for further management 2. h/o PPM placement on 11/09/24 for intermittent complete heart block, recent COVID infection - hold beta paul Diet: Cardiac Lines/tubes: PIV VTE prophylaxis: lovenox Code status: full Dispo: inpatient
[2024-12-16 09:48] LABS: Lactate/Lactic Acid 2.2 mmol/L (0.4-2.0)
[2024-12-16] MEDS: VANCOMYCIN HCL 1,250 MG in 0.9 % SODIUM CHLORIDE 250 ML 166.667 MG IV (16:57)
[2024-12-17] VITALS (18 sets, daily range): BP systolic 122–143; BP diastolic 62–79; PULSE 81–124; TEMP 36.6–36.9; O2SAT 92–95
[2024-12-17] MEDS: VANCOMYCIN HCL 1,250 MG in 0.9 % SODIUM CHLORIDE 250 ML 166 MG IV (04:12)
[2024-12-17] MEDS: 0.9 % SODIUM CHLORIDE 250 ML 10 ML IV (08:42)
[2024-12-17] MEDS: DOXYCYCLINE HYCLATE 100 MG in 0.9 % SODIUM CHLORIDE 100 ML IV ×2 (08:43→20:29)
[2024-12-17] MEDS: PIPERACILLIN SODIUM/TAZOBACTAM 3.375 GM in 0.9 % SODIUM CHLORIDE 50 ML IV ×2 (08:43→16:16)
[2024-12-17] MEDS: IPRATROPIUM/ALBUTEROL SULFATE 3 ML AMPUL.NEB IH ×3 (08:52→20:17)
[2024-12-17 10:08] LABS: Hematocrit 33.7 % (42.0-54.0); Hemoglobin 10.6 g/dL (14.0-18.0); Immature Granulocytes Abs Auto 0.16 10^3/uL (0.00-0.03); Immature Granulocytes Pct Auto 1.1 % (0.0-0.5); Lymphocytes Absolute Auto 1.6 10^3/uL (1.2-3.8); Mean Corpuscular HGB Conc 31.5 g/dL (29.9-35.2); Mean Corpuscular Hemoglobin 27.4 pg (25.9-34.0); Mean Corpuscular Volume 87.1 fL (80.0-94.0); Platelet Count 169 10^3/uL (150-450); Red Blood Count 3.87 10^6/uL (4.70-6.10); White Blood Count 14.5 10^3/uL (4.0-11.0)
[2024-12-17 10:21] LABS: Anion Gap 12.4; Blood Urea Nitrogen 15.0 mg/dL (7.0-18.0); Calcium 11.8 mg/dL (8.5-10.1); Carbon Dioxide 28.8 mmol/L (21.0-32.0); Chloride 106 mmol/L (98-107); Estimated GFR (African America >60 (>=60 mL/min/1.73m^2); Estimated GFR (Non-African Ame >60 (>=60 mL/min/1.73m^2); Glucose 86 mg/dL (74-106); Potassium 3.2 mmol/L (3.5-5.1); Sodium 144 mmol/L (136-145)
[2024-12-17] MEDS: ACETAMINOPHEN 500 MG TABLET PO (11:38)
--- NOTE | 2024-12-17 13:02 | P.IMPN_ITS ---
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 1. Sepsis 2/2 post-obstructive pneumonia in the setting of R lung squamous cell carcinoma not yet initiated chemo-radiation - Presented to ER due to recurrence of fevers and chills, initial lab work showed HR > 100, WBC count 33 and lactic acid 6.1. - On chart review, underwent bronchoscopy at [facility] with debulking on 11/20/24, RLL remained not patent but bronchus intermedius > 80% after electrocautery with argon plasma coagulation. Cultures positive for MRSA, resistant to levofloxacin, sensitive to doxycycline, vancomycin, and linezolid. - continue given hypotension and poor penetration, continue broad spectrum antibiotics with zosyn, vanc, and doxycycline - continue IV fluid boluses to maintain MAP > 65, trend lactic acid - blood and sputum cultures ordered - PTH and PTHrP ordered on admission for elevated calcium - no indication for steroids at this time - consulted pulmonology to determine extended course of antibiotics, continue vanc zosyn and doxycycline in meantime 2. h/o PPM placement on 11/09/24 for intermittent complete heart block, recent COVID infection - hold beta paul Diet: Cardiac Lines/tubes: PIV VTE prophylaxis: lovenox Code status: full Dispo: inpatient Internal Medicine - PN: Subj Subjective Interval history: Comfortable, slight chest discomfort with cough, still non-productive. Feels improved from admission. Exam Narrative Exam Narrative: Gen.: Awake, alert, in no distress Head: Normocephalic, atraumatic ENT: Moist mucous membranes Respiratory: No respiratory distress, lungs clear bilaterally, no significant wheezes, diminished in RLL Cardio: Regular rate and rhythm Gastrointestinal: Abdomen is soft, nondistended and nontender to palpation Extremities: Moves extremities equally Psych: Normal mood and affect Neuro: No focal neuro deficit Skin: Warm, dry, intact Constitutional Vital Signs, click to edit/add: Last Vital Signs Temp 98.0 F 12/17/24 08:51 Pulse 86 12/17/24 12:00 Resp 16 12/17/24 08:53 BP 122/76 12/17/24 08:51 Pulse Ox 93 L 12/17/24 08:53 O2 Del Method Room Air 12/17/24 08:53 Internal Medicine - PN: Obj Da Labs Labs: Laboratory Results - last 24 hr 12/17/24 09:50 WBC 14.5 H RBC 3.87 L Hgb 10.6 L Hct 33.7 L MCV 87.1 MCH 27.4 MCHC 31.5 RDW 15.6 H Plt Count 169 MPV 9.5 Neut % (Auto) 80.3 H Lymph % (Auto) 11.0 L Darke % (Auto) 5.3 Eos % (Auto) 2.1 Baso % (Auto) 0.2 Neut # (Auto) 11.6 H Lymph # (Auto) 1.6 Darke # (Auto) 0.8 Eos # (Auto) 0.3 Baso # (Auto) 0.0 Abs Immat Gran (auto) 0.16 H Imm/Tot Granulo (auto) 1.1 H Sodium 144 Potassium 3.2 L Chloride 106 Carbon Dioxide 28.8 Anion Gap 12.4 BUN 15.0 Creatinine 0.73 Est GFR ( Amer) >60 Est GFR (Non-Af Amer) >60 BUN/Creatinine Ratio 20.5 Glucose 86 Calcium 11.8 H Urinary Catheter Management Urinary Catheter Management Straight: Cath placed during this visit: yes Urethral indwelling: No Insertion date: 12/15/24 Insertion time: 15:45
[2024-12-17] MEDS: VANCOMYCIN HCL 1,250 MG in 0.9 % SODIUM CHLORIDE 250 ML 166.667 MG IV (16:16)
[2024-12-18] VITALS (22 sets, daily range): BP systolic 95–124; BP diastolic 58–74; PULSE 87–126; TEMP 36.7–36.9; O2SAT 92–96
[2024-12-18] MEDS: PIPERACILLIN SODIUM/TAZOBACTAM 3.375 GM in 0.9 % SODIUM CHLORIDE 50 ML IV ×3 (00:12→15:49)
[2024-12-18] MEDS: VANCOMYCIN HCL 1,250 MG in 0.9 % SODIUM CHLORIDE 250 ML 166.667 MG IV (05:13)
[2024-12-18 05:59] LABS: Hematocrit 32.0 % (42.0-54.0); Hemoglobin 10.2 g/dL (14.0-18.0); Immature Granulocytes Abs Auto 0.14 10^3/uL (0.00-0.03); Immature Granulocytes Pct Auto 0.7 % (0.0-0.5); Lymphocytes Absolute Auto 1.6 10^3/uL (1.2-3.8); Mean Corpuscular HGB Conc 31.9 g/dL (29.9-35.2); Mean Corpuscular Hemoglobin 27.4 pg (25.9-34.0); Mean Corpuscular Volume 86.0 fL (80.0-94.0); Platelet Count 210 10^3/uL (150-450); Red Blood Count 3.72 10^6/uL (4.70-6.10); White Blood Count 19.1 10^3/uL (4.0-11.0)
[2024-12-18 06:16] LABS: Anion Gap 13.7; Blood Urea Nitrogen 11.0 mg/dL (7.0-18.0); Calcium 11.6 mg/dL (8.5-10.1); Carbon Dioxide 27.8 mmol/L (21.0-32.0); Chloride 104 mmol/L (98-107); Estimated GFR (African America >60 (>=60 mL/min/1.73m^2); Estimated GFR (Non-African Ame >60 (>=60 mL/min/1.73m^2); Glucose 99 mg/dL (74-106); Potassium 3.5 mmol/L (3.5-5.1); Sodium 142 mmol/L (136-145)
[2024-12-18] MEDS: DOXYCYCLINE HYCLATE 100 MG in 0.9 % SODIUM CHLORIDE 100 ML IV ×2 (08:44→21:06)
--- NOTE | 2024-12-18 09:33 | SWNOTE1 ---
SW and I met with pt in room. Pt was sitting up in chair. Pt lives at home with . Pt uses a cane. Pt voices he is mostly independent but he does not drive. I asked pt if he had any concerns for discharge at this time and pt voiced no. SW discussed PT recommendation of home health, pt voiced he would not like home health. SW advised pt that if he goes home and changes his mind pt's PCP can set up home health too. Pt voiced understanding. SW to follow as needed.
[2024-12-18] MEDS: IPRATROPIUM/ALBUTEROL SULFATE 3 ML AMPUL.NEB IH ×3 (10:14→20:26)
--- NOTE | 2024-12-18 12:28 | CM.NOTE ---
Rounds made with Dr. Sánchez. Treatment plan reviewed by Dr. Sánchez and all questions answered. No discharge today.
--- NOTE | 2024-12-18 12:53 | CT_ITS ---
[address] [address] Patient Name: JATIN KOCH MRN: [id number] date: 1960 Sex: M Assigned Patient Location: Current Patient Location: Accession/Order Number: [id number] Exam Date: 12/18/2024 16:33 Report Date: 12/18/2024 16:41 At the request of: EBONY HULL MD Procedure: CT chest w con CT Chest with contrast TECHNIQUE: Axial imaging with 2-D reconstruction. 1 cc of Omnipaque 300The CT exam was performed using one or more the following dose reduction techniques: Automated exposure control, adjustment of the MA and/or Kv according to patient size, or use of the iterative reconstruction technique. History: History of lung cancer. Shortness of breath. Obstructive pneumonia. Fever. COMPARISON: 11/03/2024 THYROID: Unremarkable TRACHEA AND BRONCHI: Patent ESOPHAGUS: Unremarkable. HEART: Within normal limits cardiac device present. PERICARDIAL EFFUSION: None CORONARY ARTERY CALCIFICATION: None MEDIASTINUM: Redemonstration of subcarinal mediastinal mass with hilar extension. Similar density size and distribution. . PULMONARY MIK: No hilar mass or adenopathy is seen. THORACIC AORTA Unremarkable LUNG NODULE and no new lung nodules to suggest pulmonary metastasis. LUNGS: Progressive postobstructive changes of the right lower lobe. Regions of extensive mucous plugging PLEURAL EFFUSION: None PNEUMOTHORAX: No pneumothorax seen. CHEST WALL: No abnormality AXILLA:Unremarkable BONY STRUCTURES Intact UPPER ABDOMEN: Images of the upper abdomen are noncontributory. CT/CT chest w con IMPRESSION: Redemonstration of subcarinal mediastinal mass extending into the right hilar region. Similar size distribution and density of the lesion. Interval progression of obstructive changes of the right lower lobe with bronchiectasis and mucous plugging. Development of tiny layering right pleural effusion. No new regions of metastatic disease. Impression dictated by: Kirk Mccann M.D. 12/18/2024 4:41 PM Dictation Location: [place] [address] Electronically authenticated by: [id number] Y Date: 12/18/2024 16:41
--- NOTE | 2024-12-18 13:01 | PM.PN ---
Progress Note: Subjective Subjective Interval history: Follow-up outpatient. Patient is feeling well. The persistent dyspnea on exertion. No chest pain. Exam Narrative Exam Narrative: [pt is awake and alert. oriented to place, time and person HEENT: [place] conjunctiva and NL buccal mucosa Neck: Supple, no tenderness Endocrine: No Thyromegaly. Vascular: No JVD or carotid bruit. Lymphatic: No cervical lymphadenopathy. Chest: Diminished breath sound on the right side. Fine rhonchi Heart systolic murmur Abd: Soft, no tenderness, no rebound and no rigidity. Increase abd girth therefore clinically I could not exclude the possibility of intra abd mass or organomegaly. LE: No cyanosis or clubbing, no varices or edema. Neuro: A A O. Nl speech, comprehension and attention. Nl and symetrical motor and tone examination through out. []] Constitutional Vital Signs, click to edit/add: Last Vital Signs Temp 98.0 F 12/18/24 07:19 Pulse 108 H 12/18/24 12:00 Resp 16 12/18/24 12:00 BP 95/65 12/18/24 12:00 Pulse Ox 93 L 12/18/24 12:00 O2 Del Method Room Air 12/18/24 12:00 Progress Note: Objective Labs Labs: Short CBC 12/18/24 Range/Units 05:40 WBC 19.1 H (4.0-11.0) 10^3/uL Hgb 10.2 L (14.0-18.0) g/dL Hct 32.0 L (42.0-54.0) % Plt Count 210 (150-450) 10^3/uL BMP 12/18/24 05:40 Sodium 142 Potassium 3.5 Chloride 104 Carbon Dioxide 27.8 BUN 11.0 Creatinine 0.89 Glucose 99 Calcium 11.6 H Progress Note: A&P Assessment and Plan (1) Postobstructive pneumonia: (2) Squamous cell lung cancer: (3) Sepsis: (4) History of COVID-19: (5) Lung cancer: (6) Hypercalcemia: (7) Hypotension: Assessment and Plan: Obstructive pneumonia. Diminished breath sound. Suspect pleural effusion. Rule out empyema. As per report, patient tested positive for MRSA Patient has been started on vancomycin by my colleague. Vancomycin level is toxic. Hold vancomycin. As per report, MRSA is sensitive to doxycycline Continue doxycycline Continue Zosyn for obstructive pneumonia, covering anaerobes Requested CAT scan of the chest to take a better look at the pneumonia, lung cancer and possibility of effusion Sepsis present on admission secondary to above Continue broad-spectrum antibiotic. Thus far blood cultures negative Hypercalcemia. I requested PTH level which came back low highly suggestive of malignancy induced hypercalcemia and/or dehydration and volume loss Hypercalcemia improved with IV fluid infusion but not corrected back to normal. Requested ionized calcium Requested 1 dose of calcitonin. Parathyroid related hormone is pending Patient would likely need additional imaging to rule out bone mets. This could be done by his oncology team at [facility]. Hypertension Is likely caused by sepsis and active infection Continue IV fluid infusion Continue to hold beta-paul Known to have pacemaker Patient is to follow-up with his shanker out. Anemia, no evidence of acute blood loss. Patient will likely require to have anemia workup to be done in the outpatient setting to be handled by PCP in collaboration with other needed outpatient providers. This may include but not limited to EGD, colonoscopy, referral to see hematology and other needed age-appropriate cancer screening. Chronic medical conditions not listed above, incidental findings seen on labs and imaging. These would need to be addressed. Could be addressed when time and condition are appropriate. Could be addressed in the outpatient setting by PCP collaboration with other needed outpatient providers. I discussed this case with his parents at the bedside. I provided them information about his disease, prognosis, expectation and trajectory. I answered all of their questions Urinary Catheter Management Urinary Catheter Management Straight: Cath placed during this visit: yes Urethral indwelling: No Insertion date: 12/15/24 Insertion time: 15:45
[2024-12-18] MEDS: ALBUMIN HUMAN 25 GM/100 ML PREMIX IV (13:51)
[2024-12-18] MEDS: 0.9 % SODIUM CHLORIDE 1,000 ML 100 ML IV (13:52)
[2024-12-18] MEDS: CALCITONIN,SALMON,SYNTHETIC 30 SPRAY/3.7 ML BOTTLE NS (13:52)
[2024-12-18] MEDS: SENNOSIDES/DOCUSATE SODIUM 1 TAB TABLET PO ×2 (15:03→21:03)
[2024-12-18] MEDS: DOCUSATE SODIUM 100 MG CAPSULE PO (21:03)
[2024-12-18] MEDS: ENSURE HP 237 ML LIQUID PO (21:05)
[2024-12-19] VITALS (21 sets, daily range): BP systolic 103–167; BP diastolic 54–85; PULSE 76–119; TEMP 36.6–37.6; O2SAT 4–95
[2024-12-19] MEDS: PIPERACILLIN SODIUM/TAZOBACTAM 3.375 GM in 0.9 % SODIUM CHLORIDE 50 ML IV ×4 (00:24→23:26)
[2024-12-19] MEDS: 0.9 % SODIUM CHLORIDE 1,000 ML 100 ML IV (02:55)
[2024-12-19 05:44] LABS: Hematocrit 29.4 % (42.0-54.0); Hemoglobin 9.4 g/dL (14.0-18.0); Immature Granulocytes Abs Auto 0.07 10^3/uL (0.00-0.03); Immature Granulocytes Pct Auto 0.4 % (0.0-0.5); Lymphocytes Absolute Auto 1.4 10^3/uL (1.2-3.8); Mean Corpuscular HGB Conc 32.0 g/dL (29.9-35.2); Mean Corpuscular Hemoglobin 27.5 pg (25.9-34.0); Mean Corpuscular Volume 86.0 fL (80.0-94.0); Platelet Count 185 10^3/uL (150-450); Red Blood Count 3.42 10^6/uL (4.70-6.10); White Blood Count 15.7 10^3/uL (4.0-11.0)
[2024-12-19 06:00] LABS: Anion Gap 13.7; Blood Urea Nitrogen 11.0 mg/dL (7.0-18.0); Calcium 11.7 mg/dL (8.5-10.1); Carbon Dioxide 26.7 mmol/L (21.0-32.0); Chloride 104 mmol/L (98-107); Estimated GFR (African America >60 (>=60 mL/min/1.73m^2); Estimated GFR (Non-African Ame >60 (>=60 mL/min/1.73m^2); Glucose 88 mg/dL (74-106); Potassium 3.4 mmol/L (3.5-5.1); Sodium 141 mmol/L (136-145)
[2024-12-19 06:08] LABS: Lactate/Lactic Acid 0.6 mmol/L (0.4-2.0)
[2024-12-19] MEDS: DOCUSATE SODIUM 100 MG CAPSULE PO ×2 (08:30→20:30)
[2024-12-19] MEDS: DOXYCYCLINE HYCLATE 100 MG in 0.9 % SODIUM CHLORIDE 100 ML IV ×2 (08:30→20:30)
[2024-12-19] MEDS: SENNOSIDES/DOCUSATE SODIUM 1 TAB TABLET PO ×2 (08:30→20:30)
[2024-12-19] MEDS: CALCITONIN,SALMON,SYNTHETIC 30 SPRAY/3.7 ML BOTTLE NS (08:33)
[2024-12-19] MEDS: IPRATROPIUM/ALBUTEROL SULFATE 3 ML AMPUL.NEB IH ×3 (09:30→20:19)
[2024-12-19] MEDS: POTASSIUM CHLORIDE 10 MEQ ER TABLET 40 MEQ PO (12:18)
--- NOTE | 2024-12-19 12:43 | P.PN_ITS ---
Progress Note: Subjective Subjective Interval history: Follow-up outpatient. Patient is feeling well. The persistent dyspnea on exertion. No chest pain. Patient reported having constipation. No bowel movement for 3 days despite the use of Senokot and Colace. Exam Narrative Exam Narrative: [pt is awake and alert. oriented to place, time and person HEENT: [place] conjunctiva and NL buccal mucosa Neck: Supple, no tenderness Endocrine: No Thyromegaly. Vascular: No JVD or carotid bruit. Lymphatic: No cervical lymphadenopathy. Chest: Diminished but improved air entry and aeration involving the right mid and lower lung. Heart RRR, systolic murmur. Abd: Soft, no tenderness, no rebound and no rigidity. Increase abd girth therefore clinically I could not exclude the possibility of intra abd mass or organomegaly. LE: No cyanosis or clubbing, no varices or edema. Neuro: A A O. Nl speech, comprehension and attention. Nl and symetrical motor and tone examination through out. []] Constitutional Vital Signs, click to edit/add: Last Vital Signs Temp 98.0 F 12/19/24 11:57 Pulse 102 H 12/19/24 12:00 Resp 16 12/19/24 11:57 BP 156/54 H 12/19/24 11:57 Pulse Ox 94 L 12/19/24 11:57 O2 Del Method Room Air 12/19/24 11:57 Progress Note: Objective Labs Labs: Short CBC 12/19/24 Range/Units 05:25 WBC 15.7 H (4.0-11.0) 10^3/uL Hgb 9.4 L (14.0-18.0) g/dL Hct 29.4 L (42.0-54.0) % Plt Count 185 (150-450) 10^3/uL BMP 12/19/24 05:25 Sodium 141 Potassium 3.4 L Chloride 104 Carbon Dioxide 26.7 BUN 11.0 Creatinine 0.77 Glucose 88 Calcium 11.7 H Progress Note: A&P Assessment and Plan (1) Postobstructive pneumonia: (2) Squamous cell lung cancer: (3) Sepsis: (4) History of COVID-19: (5) Lung cancer: (6) Hypercalcemia: (7) Hypotension: (8) Constipation: (9) Ileus: Plan Obstructive pneumonia. Diminished breath sound. Suspect pleural effusion. Rule out empyema. As per report, patient tested positive for MRSA Patient has been started on vancomycin by my colleague. Vancomycin level is toxic. Hold vancomycin. As per report, MRSA is sensitive to doxycycline Continue doxycycline Continue Zosyn for obstructive pneumonia, covering anaerobes Improved lung aeration on chest exam CAT scan of the chest confirmed evidence of obstructive pneumonia as well as mass with mild pleural effusion. White count is down from 30,000-15,000. Low suspicion for empyema. Sepsis present on admission secondary to above Continue broad-spectrum antibiotic. Thus far blood cultures negative Hypercalcemia. I requested PTH level which came back low highly suggestive of malignancy induced hypercalcemia and/or dehydration and volume loss Hypercalcemia improved with IV fluid infusion but not corrected back to normal. Added Lasix. Requested ionized calcium, still pending Requested daily dose of calcitonin Parathyroid related hormone is pending Patient would likely need additional imaging to rule out bone mets. This could be done by his oncology team at [facility]. Calcium is less than 12. No associated symptoms such as confusion or change in mental status. No strong indication for the use of bisphosphonate. Hypotension Is likely caused by sepsis and active infection Significant improvement and resolution of hypotension over the last 48 hours Added Lasix to help with the hypercalcemia. Constipation, no bowel movement for 4 days, probable ileus. Continue Senokot and Colace. I did magnesium citrate and Dulcolax suppository If no improvement I would request imaging of the abdomen to rule out any partial obstruction Functional impairment, weakness, nonfocal. Patient is using a walker. Patient and his requested physical occupational therapy evaluation and treatment inpatient and hopefully he will qualify for outpatient treatment I will arrange for that Known to have pacemaker Patient is to follow-up with his pulmonary function technologist. Anemia, no evidence of acute blood loss. Patient will likely require to have anemia workup to be done in the outpatient setting to be handled by PCP in collaboration with other needed outpatient providers. This may include but not limited to EGD, colonoscopy, referral to see hematology and other needed age-appropriate cancer screening. Chronic medical conditions not listed above, incidental findings seen on labs and imaging. These would need to be addressed. Could be addressed when time and condition are appropriate. Could be addressed in the outpatient setting by PCP collaboration with other needed outpatient providers. I discussed this case with his at the bedside. I provided them information about his disease, prognosis, expectation and trajectory. I answered all of their questions Urinary Catheter Management Urinary Catheter Management Straight: Cath placed during this visit: yes Urethral indwelling: No Insertion date: 12/15/24 Insertion time: 15:45
[2024-12-19] MEDS: MAGNESIUM CITRATE 296 ML SOLUTION PO (13:43)
[2024-12-19] MEDS: FUROSEMIDE 40 MG/4 ML VIAL IVP (13:44)
[2024-12-20] VITALS (23 sets, daily range): BP systolic 114–128; BP diastolic 68–78; PULSE 73–117; TEMP 36.6–37.4; O2SAT 91–94
[2024-12-20 05:49] LABS: Hematocrit 31.6 % (42.0-54.0); Hemoglobin 10.2 g/dL (14.0-18.0); Immature Granulocytes Abs Auto 0.13 10^3/uL (0.00-0.03); Immature Granulocytes Pct Auto 0.7 % (0.0-0.5); Lymphocytes Absolute Auto 1.2 10^3/uL (1.2-3.8); Mean Corpuscular HGB Conc 32.3 g/dL (29.9-35.2); Mean Corpuscular Hemoglobin 27.7 pg (25.9-34.0); Mean Corpuscular Volume 85.9 fL (80.0-94.0); Platelet Count 210 10^3/uL (150-450); Red Blood Count 3.68 10^6/uL (4.70-6.10); White Blood Count 17.5 10^3/uL (4.0-11.0)
[2024-12-20 06:13] LABS: Anion Gap 15.0; Blood Urea Nitrogen 12.0 mg/dL (7.0-18.0); Calcium 11.8 mg/dL (8.5-10.1); Carbon Dioxide 26.5 mmol/L (21.0-32.0); Chloride 104 mmol/L (98-107); Estimated GFR (African America >60 (>=60 mL/min/1.73m^2); Estimated GFR (Non-African Ame >60 (>=60 mL/min/1.73m^2); Glucose 84 mg/dL (74-106); Potassium 3.5 mmol/L (3.5-5.1); Sodium 142 mmol/L (136-145)
[2024-12-20] MEDS: DOCUSATE SODIUM 100 MG CAPSULE PO ×2 (08:22→20:26)
[2024-12-20] MEDS: ZOLEDRONIC AC/MANNITOL/0.9NACL 4 MG/100 ML PIGGYBACK IV (08:22)
[2024-12-20] MEDS: SENNOSIDES/DOCUSATE SODIUM 1 TAB TABLET PO ×2 (08:22→20:26)
[2024-12-20] MEDS: ENSURE HP 237 ML LIQUID PO (08:22)
[2024-12-20] MEDS: POTASSIUM CHLORIDE 10 MEQ ER TABLET 30 MEQ PO ×2 (08:22→20:26)
[2024-12-20] MEDS: CALCITONIN,SALMON,SYNTHETIC 30 SPRAY/3.7 ML BOTTLE NS (08:43)
--- NOTE | 2024-12-20 09:13 | PM.PN ---
Progress Note: Subjective Subjective Interval history: Follow-up outpatient. Patient is feeling well. The persistent dyspnea on exertion. No chest pain. Finally patient had multiple bowel movement. He feels better. Exam Narrative Exam Narrative: [pt is awake and alert. oriented to place, time and person HEENT: [place] conjunctiva and NL buccal mucosa Neck: Supple, no tenderness Endocrine: No Thyromegaly. Vascular: No JVD or carotid bruit. Lymphatic: No cervical lymphadenopathy. Chest: Improved aeration of right mid and lower lung. Resolution of rhonchi. Improved air entry sounded. Heart RRR, no extra sound or murmur. Abd: Soft, no tenderness, no rebound and no rigidity. Increase abd girth therefore clinically I could not exclude the possibility of intra abd mass or organomegaly. LE: No cyanosis or clubbing, no varices or edema. Neuro: A A O. Nl speech, comprehension and attention. Nl and symetrical motor and tone examination through out. []] Constitutional Vital Signs, click to edit/add: Last Vital Signs Temp 98.1 F 12/20/24 08:36 Pulse 91 H 12/20/24 08:36 Resp 19 12/20/24 08:36 BP 120/73 12/20/24 08:36 Pulse Ox 91 L 12/20/24 08:36 O2 Del Method Room Air 12/20/24 08:36 Progress Note: Objective Labs Labs: Short CBC 12/20/24 Range/Units 05:11 WBC 17.5 H (4.0-11.0) 10^3/uL Hgb 10.2 L (14.0-18.0) g/dL Hct 31.6 L (42.0-54.0) % Plt Count 210 (150-450) 10^3/uL BMP 12/20/24 05:11 Sodium 142 Potassium 3.5 Chloride 104 Carbon Dioxide 26.5 BUN 12.0 Creatinine 0.85 Glucose 84 Calcium 11.8 H Progress Note: A&P Assessment and Plan (1) Postobstructive pneumonia: (2) Squamous cell lung cancer: (3) Sepsis: (4) History of COVID-19: (5) Lung cancer: (6) Hypercalcemia: (7) Hypotension: (8) Constipation: (9) Ileus: Plan Obstructive pneumonia. Diminished breath sound. Small pleural effusion. Unlikely empyema As per report, patient tested positive for MRSA which was sensitive to doxycycline and Zyvox according to report Continue doxycycline Continue Zosyn for obstructive pneumonia, covering anaerobes Improved lung aeration on chest exam Continue PEP CAT scan of the chest confirmed evidence of obstructive pneumonia as well as mass with mild pleural effusion. White count is down from 30,000-15,000. Sepsis present on admission secondary to above Continue broad-spectrum antibiotic. Thus far blood cultures negative Hypercalcemia. I requested PTH level which came back low highly suggestive of malignancy induced hypercalcemia and/or dehydration and volume loss Hypercalcemia improved with IV fluid infusion but not corrected back to normal. Added Lasix. Requested ionized calcium which came back also elevated. Requested daily dose of calcitonin Parathyroid related hormone is pending Patient would likely need additional imaging to rule out bone mets. This could be done by his oncology team at [facility]. Calcium is creeping up instead of down with the calcitonin. I will order 1 dose of bisphosphonate IV Hypotension Is likely caused by sepsis and active infection Significant improvement and resolution of hypotension over the last 48 hours Added Lasix to help with the hypercalcemia. Constipation, no bowel movement for 4 days, probable ileus. Continue Senokot and Colace. I did magnesium citrate and Dulcolax suppository Resolution of his constipation and ileus. Continue stool softeners and stimulant Functional impairment, weakness, nonfocal. Patient is using a walker. 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 Anemia, no evidence of acute blood loss. Patient will likely require to have anemia workup to be done in the outpatient setting to be handled by PCP in collaboration with other needed outpatient providers. This may include but not limited to EGD, colonoscopy, referral to see hematology and other needed age-appropriate cancer screening. Chronic medical conditions not listed above, incidental findings seen on labs and imaging. These would need to be addressed. Could be addressed when time and condition are appropriate. Could be addressed in the outpatient setting by PCP collaboration with other needed outpatient providers. Urinary Catheter Management Urinary Catheter Management Straight: Cath placed during this visit: yes Urethral indwelling: No Insertion date: 12/15/24 Insertion time: 15:45
[2024-12-20] MEDS: IPRATROPIUM/ALBUTEROL SULFATE 3 ML AMPUL.NEB IH ×3 (09:18→20:58)
[2024-12-20] MEDS: DOXYCYCLINE HYCLATE 100 MG in 0.9 % SODIUM CHLORIDE 100 ML IV ×2 (10:19→20:41)
--- NOTE | 2024-12-20 11:09 | SWNOTE1 ---
SW reviewed therapy notes and pt better, recommendations of returning home with family.
[2024-12-20] MEDS: PIPERACILLIN SODIUM/TAZOBACTAM 3.375 GM in 0.9 % SODIUM CHLORIDE 50 ML IV ×2 (12:11→18:53)
[2024-12-21] VITALS (20 sets, daily range): BP systolic 96–115; BP diastolic 54–72; PULSE 81–120; TEMP 36.5–37.7; O2SAT 91–94
[2024-12-21] MEDS: PIPERACILLIN SODIUM/TAZOBACTAM 3.375 GM in 0.9 % SODIUM CHLORIDE 50 ML IV ×3 (03:22→18:01)
[2024-12-21 05:14] LABS: Hematocrit 32.1 % (42.0-54.0); Hemoglobin 10.1 g/dL (14.0-18.0); Immature Granulocytes Abs Auto 0.10 10^3/uL (0.00-0.03); Immature Granulocytes Pct Auto 0.5 % (0.0-0.5); Lymphocytes Absolute Auto 1.1 10^3/uL (1.2-3.8); Mean Corpuscular HGB Conc 31.5 g/dL (29.9-35.2); Mean Corpuscular Hemoglobin 27.3 pg (25.9-34.0); Mean Corpuscular Volume 86.8 fL (80.0-94.0); Platelet Count 217 10^3/uL (150-450); Red Blood Count 3.70 10^6/uL (4.70-6.10); White Blood Count 19.7 10^3/uL (4.0-11.0)
[2024-12-21 05:45] LABS: Anion Gap 15.1; Blood Urea Nitrogen 20.0 mg/dL (7.0-18.0); Calcium 11.2 mg/dL (8.5-10.1); Carbon Dioxide 24.8 mmol/L (21.0-32.0); Chloride 101 mmol/L (98-107); Estimated GFR (African America >60 (>=60 mL/min/1.73m^2); Estimated GFR (Non-African Ame >60 (>=60 mL/min/1.73m^2); Glucose 81 mg/dL (74-106); Potassium 3.9 mmol/L (3.5-5.1); Sodium 137 mmol/L (136-145)
[2024-12-21] MEDS: ENSURE HP 237 ML LIQUID PO (08:51)
[2024-12-21] MEDS: SENNOSIDES/DOCUSATE SODIUM 1 TAB TABLET PO ×2 (08:52→20:22)
[2024-12-21] MEDS: DOCUSATE SODIUM 100 MG CAPSULE PO ×2 (08:52→20:22)
[2024-12-21] MEDS: ALBUMIN HUMAN 25 GM/100 ML PREMIX IV (08:52)
[2024-12-21] MEDS: 0.9 % SODIUM CHLORIDE 1,000 ML 75 ML IV ×2 (08:52→20:22)
[2024-12-21] MEDS: IPRATROPIUM/ALBUTEROL SULFATE 3 ML AMPUL.NEB IH (09:12)
--- NOTE | 2024-12-21 09:59 | CA_ITS ---
Patient Name: JATIN KOCH MR#: [id number] : 1960 Exam Date: 12/21/2024 Ordering Doctor: EBONY HULL ECHOCARDIOGRAM REPORT PROCEDURE: CA ECHO DOPPLER COMPLETE INDICATIONS: SVT, pacemaker, MRSA, recent Covid, lung cancer, hypertension, sleep apnea COMPARISON: None. DESCRIPTION: COMPLETE ECHOCARDIOGRAM Real-time transthoracic echocardiography with 2D, M-mode, spectral and color flow Doppler performed. QUALITY: Technical quality was good. LEFT VENTRICLE: Normal chamber size. Mild concentric left ventricular hypertrophy. Normal to hyperdynamic left ventricle systolic function without wall motion abnormalities. Calculated left ventricular ejection fraction is 72%. LV EF: Normal left ventricular ejection fraction, visually 70% DIASTOLIC: Normal diastolic function. ATRIAL SEPTUM: Appears intact LEFT ATRIUM: Normal chamber size. RIGHT ATRIUM: Normal chamber size. RIGHT VENTRICLE: Normal chamber size. Normal systolic function. Pacer wire present. TRICUSPID VALVE: Normal mobility and thickness. No stenosis with trivial regurgitation. Unable to assess right-sided pressures due to lack of measurable tricuspid regurgitation. MITRAL VALVE: Mildly thickened with normal mobility. Mild mitral annular calcification. No mitral regurgitation. AORTIC VALVE: Not well-visualized. Mildly calcified aortic valve. Mildly diminished mobility. Doppler velocity suggest mild aortic valve stenosis. DVI 0.4, JERICHO 1.4 cm2 no aortic regurgitation. AORTIC ROOT: Normal diameter and appearance. Aortic arch is normal in size PULMONIC VALVE: Normal thickness and mobility. No stenosis or insufficiency PERICARDIUM: No evidence of pericardial effusion. IVC: Collapes with inspirations. IVC is normal in size. PLEURA: CONCLUSION: Mild concentric left ventricle hypertrophy Normal to hyperdynamic left ventricle systolic function without wall motion abnormalities, ejection fraction 70% Normal left ventricle diastolic function Normal right ventricle size and systolic function Pacemaker lead in the right cardiac chambers Mild aortic stenosis Adult Echocardiography Procedure Report Left Ventricle LVEDD (3.7 - 5.6 cm): 4.57 cm LVESD (2.2 - 4.0 cm): 2.99 cm LVIVS thickness (0.6 - 1.2 cm): 1.17 cm LVPW thickness (0.5 - 1.0 cm): 1.16 cm e': 0.09 m/s E - e': 8.67 LVOT Max Gradient: 4.66 mm[Hg] LVOT Area (cm2): 1.08 m/s Peak Velocity (LVOT): 1.08 m/s Mean Velocity (LVOT): 0.77 m/s LVOT Diameter 2.06 cm Left Ventricular Ejection Fraction: 71.53 % Left Atrium LA Volume Index (2D A2C): 16.46 ml/m2 Left Atrium Systolic Dimension: 3.82 cm Mitral Valve MV E to A Ratio: 0.72 Mitral Valve A-Wave Peak Velocity: 1.07 m/s Mitral Valve E-Wave Peak Velocity: 0.77 m/s Right Ventricle Aorta AO Root Diam: 3.68 cm Aortic Valve AoV Area (Peak Cirilo): 1.30 cm2, 1.30 cm2 AoV Area (VTI): 1.38 cm2, 1.38 cm2 Peak Velocity(Antegrade Flow): 2.77 m/s, 2.53 m/s, 2.62 m/s Peak Gradient(Antegrade Flow): 30.69 mm[Hg], 25.66 mm[Hg], 27.43 mm[Hg] Mean Velocity(Antegrade Flow): 1.72 m/s, 1.62 m/s, 1.68 m/s Mean Gradient(Antegrade Flow): 14.52 mm[Hg], 13.39 mm[Hg], 14.02 mm[Hg] Velocity Time Integral: 41.97 cm, 41.43 cm, 40.38 cm Tricuspid Valve Pulmonic Valve Peak Gradient: 2.37 mm[Hg], 3.88 mm[Hg] Right Atrium Right Atrium Systolic Pressure: 46.81 ml, 46.81 ml Dictated by: Blaise Meredith MD on 12/22/2024 at 12:07 Approved by: Blaise Meredith MD on 12/22/2024 at 12:16
--- NOTE | 2024-12-21 10:01 | PM.PN ---
Progress Note: Subjective Subjective Interval history: Follow-up outpatient. Patient is feeling great today. desk monitor showed frequent episodes of tachycardia. Finally patient had multiple bowel movement. He feels better. Exam Narrative Exam Narrative: [pt is awake and alert. oriented to place, time and person, no distress whatsoever. HEENT: [place] conjunctiva and NL buccal mucosa Neck: Supple, no tenderness Endocrine: No Thyromegaly. Vascular: No JVD or carotid bruit. Lymphatic: No cervical lymphadenopathy. Chest: Improved aeration of the right lung. Heart RRR, no extra sound or murmur. Abd: Soft, no tenderness, no rebound and no rigidity. Increase abd girth therefore clinically I could not exclude the possibility of intra abd mass or organomegaly. LE: No cyanosis or clubbing, no varices or edema. Neuro: A A O. Nl speech, comprehension and attention. Nl and symetrical motor and tone examination through out. []] Constitutional Vital Signs, click to edit/add: Last Vital Signs Temp 98.0 F 12/21/24 07:52 Pulse 100 H 12/21/24 09:12 Resp 16 12/21/24 09:12 BP 106/65 12/21/24 07:52 Pulse Ox 94 L 12/21/24 09:12 O2 Del Method Room Air 12/21/24 09:12 Progress Note: Objective Labs Labs: Short CBC 12/21/24 Range/Units 04:58 WBC 19.7 H (4.0-11.0) 10^3/uL Hgb 10.1 L (14.0-18.0) g/dL Hct 32.1 L (42.0-54.0) % Plt Count 217 (150-450) 10^3/uL BMP 12/21/24 04:58 Sodium 137 Potassium 3.9 Chloride 101 Carbon Dioxide 24.8 BUN 20.0 H Creatinine 0.86 Glucose 81 Calcium 11.2 H Progress Note: A&P Assessment and Plan (1) Postobstructive pneumonia: (2) Squamous cell lung cancer: (3) Sepsis: (4) History of COVID-19: (5) Lung cancer: (6) Hypercalcemia: (7) Hypotension: (8) Constipation: (9) Ileus: Plan Obstructive pneumonia. Diminished breath sound. Small pleural effusion. Unlikely empyema As per report, patient tested positive for MRSA which was sensitive to doxycycline and Zyvox according to report Continue doxycycline Continue Zosyn for obstructive pneumonia, covering anaerobes Improved lung aeration on chest exam Continue PEP CAT scan of the chest confirmed evidence of obstructive pneumonia as well as mass with mild pleural effusion. White count is down from 30,000-15,000. Frequent SVT on the monitor. Patient has a pacemaker already Requested echocardiogram rule out valvular disease no cardiomyopathy. I discontinued DuoNeb. I started patient on Lopressor 25 twice daily. Sepsis present on admission secondary to above Continue broad-spectrum antibiotic. Thus far blood cultures negative Hypercalcemia. I requested PTH level which came back low highly suggestive of malignancy induced hypercalcemia and/or dehydration and volume loss Hypercalcemia improved with IV fluid infusion but not corrected back to normal. Added Lasix. Requested ionized calcium which came back also elevated. Requested daily dose of calcitonin Parathyroid related hormone is pending Patient would likely need additional imaging to rule out bone mets. This could be done by his oncology team at [facility]. Calcium is creeping up instead of down with the calcitonin. I will order 1 dose of bisphosphonate IV on 12/20. Continue to monitor calcium level Hypotension Continue gentle IV fluid infusion. Added albumin infusion as well due to low albumin level and to reduce discomfort third spacing into his lungs Constipation, no bowel movement for 4 days, probable ileus. Continue Senokot and Colace. I did magnesium citrate and Dulcolax suppository Resolution of his constipation and ileus. Continue stool softeners and stimulant Functional impairment, weakness, nonfocal. Patient is using a walker. Patient and his requested physical occupational therapy evaluation and treatment inpatient and hopefully he will qualify for outpatient treatment I will arrange for that Anemia, no evidence of acute blood loss. Patient will likely require to have anemia workup to be done in the outpatient setting to be handled by PCP in collaboration with other needed outpatient providers. This may include but not limited to EGD, colonoscopy, referral to see hematology and other needed age-appropriate cancer screening. Chronic medical conditions not listed above, incidental findings seen on labs and imaging. These would need to be addressed. Could be addressed when time and condition are appropriate. Could be addressed in the outpatient setting by PCP collaboration with other needed outpatient providers. Urinary Catheter Management Urinary Catheter Management Straight: Cath placed during this visit: yes Urethral indwelling: No Insertion date: 12/15/24 Insertion time: 15:45
[2024-12-21] MEDS: METOPROLOL TARTRATE 25 MG TABLET PO ×2 (10:19→20:23)
[2024-12-21] MEDS: DOXYCYCLINE MONOHYDRATE 100 MG CAPSULE PO ×2 (10:19→20:22)
[2024-12-22] VITALS (8 sets, daily range): BP systolic 124; BP diastolic 69–77; PULSE 76–85; TEMP 36.5–37; O2SAT 93–96
[2024-12-22] MEDS: PIPERACILLIN SODIUM/TAZOBACTAM 3.375 GM in 0.9 % SODIUM CHLORIDE 50 ML IV ×2 (02:28→10:39)
[2024-12-22 06:22] LABS: Calcium 9.7 mg/dL (8.5-10.1)
[2024-12-22] MEDS: DOXYCYCLINE MONOHYDRATE 100 MG CAPSULE PO (08:52)
[2024-12-22] MEDS: ENOXAPARIN SODIUM 40 MG/0.4 ML SYRINGE SUBQ (08:52)
[2024-12-22] MEDS: DOCUSATE SODIUM 100 MG CAPSULE PO (08:52)
[2024-12-22] MEDS: SENNOSIDES/DOCUSATE SODIUM 1 TAB TABLET PO (08:52)
[2024-12-22] MEDS: METOPROLOL TARTRATE 25 MG TABLET PO (08:52)
--- NOTE | 2024-12-22 10:51 | PM.DS1 ---
DS: Providers Provider Date of admission: 12/15/24 19:52 Primary care physician: CARLOS COLLINS Consults: 12/16/24 11:31 Occupational Therapy Eval and Treat Routine Reason for consultation: rehab/disposition Physical Therapy Eval and Treat Routine Reason for consultation: rehab/disposition 12/19/24 12:34 Occupational Therapy Eval and Treat Routine Reason for consultation: Weakness Physical Therapy Eval and Treat Routine Reason for consultation: Weakness DS: Diagnosis Discharge Diagnosis (1) Postobstructive pneumonia: (2) Squamous cell lung cancer: (3) Sepsis: (4) History of COVID-19: (5) Lung cancer: (6) Hypercalcemia: (7) Hypotension: (8) Constipation: (9) Ileus: Plan As listed above and others that are not listed DS: Summary Hospital Course Hospital Course: Mr. Roa is a 64-year-old gentleman who came in with cough, not feeling well and there was found to have the following: Obstructive pneumonia. Unlikely empyema As per report, patient tested positive for MRSA which was sensitive to doxycycline and Zyvox according to report Continue doxycycline Continue Zosyn for obstructive pneumonia, covering anaerobes Improved lung aeration on chest exam Continue PEP CAT scan of the chest confirmed evidence of obstructive pneumonia as well as mass with mild pleural effusion. White count is down from 30,000-15,000. Blood cultures negative. Frequent SVT on the monitor. Patient has a pacemaker already Requested echocardiogram rule out valvular disease no cardiomyopathy. Echo is still pending I discontinued DuoNeb. I started patient on Lopressor 25 twice daily. Continue beta-paul on discharge Patient was on 25 mg daily of Toprol-XL. This will be changed to 50 mg daily Sepsis present on admission secondary to above Continue broad-spectrum antibiotic. Thus far blood cultures negative White count is significantly down. Hypercalcemia. I requested PTH level which came back low highly suggestive of malignancy induced hypercalcemia and/or dehydration and volume loss Hypercalcemia improved with IV fluid infusion but not corrected back to normal. Added Lasix. Requested ionized calcium which came back also elevated. Requested daily dose of calcitonin Parathyroid related hormone is pending Patient would likely need additional imaging to rule out bone mets. This could be done by his oncology team at [facility]. Calcium level is finally trending down after using the calcitonin and 1 dose of bisphosphonate. I would recommend patient to have repeat calcium level in 2 weeks expecting that his calcium level will creep up over the next few weeks. Also instructed patient to seek medical attention and urgent measurement of calcium level if he develops any confusion, disorientation and fogginess Hypotension Continue gentle IV fluid infusion. Added albumin infusion as well due to low albumin level and to reduce discomfort third spacing into his lungs Resolved Constipation, no bowel movement for 4 days, probable ileus. Continue Senokot and Colace. I did magnesium citrate and Dulcolax suppository Resolution of his constipation and ileus. Continue stool softeners and stimulant Functional impairment, weakness, nonfocal. Patient is using a walker. Patient and his requested physical occupational therapy evaluation and treatment inpatient and hopefully he will qualify for outpatient treatment I will arrange for that Anemia, no evidence of acute blood loss. Patient will likely require to have anemia workup to be done in the outpatient setting to be handled by PCP in collaboration with other needed outpatient providers. This may include but not limited to EGD, colonoscopy, referral to see hematology and other needed age-appropriate cancer screening. Chronic medical conditions not listed above, incidental findings seen on labs and imaging. These would need to be addressed. Could be addressed when time and condition are appropriate. Could be addressed in the outpatient setting by PCP collaboration with other needed outpatient providers. Patient has multiple complex medical issues as listed above and others that are not listed. All appear to be stable. I do not have any clear or strong clinical justification to extend inpatient hospitalization. Patient however will require close and frequent monitoring as well as additional work-up, investigation and therapeutic intervention that could take place from this point on post discharge. That is to prevent relapse, decompensation, rehospitalization and other medical implications. I instructed patient to ask her primary care doctor to obtain [facility] record entirely to address abnormalities seen on labs and imaging that I have and have not addressed during this hospitalization, follow-up on pending blood work, imaging and pathology is if available and to follow-up on needed medical care in the outpatient setting. Time Spent with Patient Time attestation: Total time spent providing and/or coordinating discharge services: Time spent: greater than 30 minutes Exam Narrative Exam Narrative: [pt is awake and alert. oriented to place, time and person HEENT: [place] conjunctiva and NL buccal mucosa Neck: Supple, no tenderness Endocrine: No Thyromegaly. Vascular: No JVD or carotid bruit. Lymphatic: No cervical lymphadenopathy. Chest: CTA no DTP. Heart RRR, no extra sound or murmur. Abd: Soft, no tenderness, no rebound and no rigidity. Increase abd girth therefore clinically I could not exclude the possibility of intra abd mass or organomegaly. LE: No cyanosis or clubbing, no varices or edema. Neuro: A A O. Nl speech, comprehension and attention. Nl and symetrical motor and tone examination through out. []] Constitutional Vital Signs, click to edit/add: Last Vital Signs Temp 97.7 F 12/22/24 08:54 Pulse 76 12/22/24 09:52 Resp 16 12/22/24 08:54 BP 124/69 12/22/24 08:54 Pulse Ox 96 12/22/24 10:20 O2 Del Method Room Air 12/22/24 10:20 DS: Data Data Completed and Pending Labs on day of discharge: Labs from last 24 hours 12/22/24 05:54 Calcium 9.7 Discharge Plan Discharge Disposition: Home, Self-Care Condition: Fair Health Concerns: I may not have addressed or treated all of your medical illnesses or the abnormal blood work or imaging studies during this hospitalization. Please ask your primary care provider to obtain [facility] records entirely to follow up on all of the abnormal physical, laboratory, and imaging findings that I have not addressed. Please follow-up with your primary care doctor and cancer doctor within the next 2 weeks And recommend that your primary care doctor arrange for a repeat calcium level in 2 weeks. Please return back to the emergency room or seek medical attention if your symptoms worsen or return. Discharging you from [facility] does not mean that your medical care ends here and now. You may still need additional monitoring, work up, investigation, and treatment plan to be handled from this point on by out patient providers including your primary care provider and specialists. For any medication question, please contact your retail pharmacist or your primary care provider. Thank you. Discharge Medications: New sennosides-docusate sodium [Senna Plus] 8.6-50 mg Tablet 1 tab PO BID Qty: 60 1RF doxycycline monohydrate 100 mg Capsule 100 mg PO BID Qty: 14 0RF amoxicillin-pot clavulanate 875-125 mg tablet 1 tab PO BID Qty: 10 0RF Continued Multivitamin 50 Plus Tablet 1 tab PO DAILY acetaminophen [Tylenol] 325 mg tablet 650 mg PO Q6H PRN (Reason: pain) fluticasone propionate [24 Hour Allergy Relief] 50 mcg/actuation spray,suspension 1 spray intranasal DAILY PRN (Reason: nasal congestion) Rx Instructions: administer into each nostril benzonatate 200 mg capsule 200 mg PO DAILY PRN (Reason: cough) albuterol sulfate 2.5 mg /3 mL (0.083 %) solution for nebulization 2.5 mg inhalation Q6H PRN (Reason: shortness of breath or wheezing) prochlorperazine maleate 10 mg tablet 10 mg PO Q12H PRN (Reason: nausea and vomiting) ondansetron HCl 8 mg tablet 8 mg PO Q12H PRN (Reason: nausea and vomiting) albuterol sulfate 90 mcg/actuation HFA aerosol inhaler 2 puff INHALATION Q4H PRN (Reason: shortness of breath or wheezing) meclizine 25 mg tablet 25 mg PO TID PRN (Reason: dizziness) Changed metoprolol succinate 25 mg tablet extended release 24 hr 50 mg PO DAILY Qty: 60 2RF Mucinex DM 30-600 mg tablet extended release 12 hr 1 tab PO DAILY PRN (Reason: cough) Qty: 0 0RF Print Language: Turkish Forms: Portal Instructions
--- NOTE | 2024-12-25 15:10 | CM.DCFOLLOWU ---
Person spoke with: Frantz How are you feeling? Better How is your pain? No pain Did you understand your discharge instructions? Yes Do you have any questions about your discharge instructions? No Were you given any prescriptions at discharge? Yes Were you able to get your prescriptions filled? Yes Do you understand how to take your medications as ordered? Yes Do you have any questions about your follow up appointment and do you plan to keep your follow up appointment? I have appt tomorrow for [facility] cancer and plan on going to appt. PCP is scheduled for following week Is there anything else that you would like to discuss? No Questions/Comments/Concerns/Other:
== END 2024-12-22 12:12 | disposition home or self-care (01) | DRG 871 ==
LOC: ER 18:28 → MS 19:58
PROVIDERS: Internal Medicine; Admitting Provider Student in an Organized Health Care Education/Training Program; Emergency Provider Emergency Medicine; PCP Nurse Practitioner; Visit Provider Student in an Organized Health Care Education/Training Program
DX: A41.9 Sepsis, unspecified organism (principal); J18.9 Pneumonia, unspecified organism; C34.91 Malignant neoplasm of unspecified part of right bronchus or lung; K56.7 Ileus, unspecified; J90 Pleural effusion, not elsewhere classified; I47.10 Supraventricular tachycardia, unspecified; Z86.16 Personal history of COVID-19; Z87.01 Personal history of pneumonia (recurrent); Z98.890 Other specified postprocedural states; Z86.14 Personal history of Methicillin resistant Staphylococcus aureus infection; E83.52 Hypercalcemia; I95.9 Hypotension, unspecified; I10 Essential (primary) hypertension; Z95.0 Presence of cardiac pacemaker; D64.9 Anemia, unspecified; R06.09 Other forms of dyspnea; K59.00 Constipation, unspecified; R53.1 Weakness; Z79.899 Other long term (current) drug therapy; Z87.891 Personal history of nicotine dependence
CPT/HCPCS: 36415; 71045; 71260; 74177; 80048; 80053; 80076; 80202; 81001; 82150; 82306; 82310; 82330; 82397; 83605; 83690; 83735; 83970; 84484; 85007; 85025; 85027; 87040; 87070; 87205; 87420; 87804; 93005; 93306; 94640; 94667; 94668; 96365; 96366; 96367; 97110; 97162; 97165; 97530; 97535; 99285; J1100; J1650; J1720; J1938; J2543; J3370; J3489; P9046; Q9967

== ENCOUNTER 2025-02-15 08:00 | Outpatient (RCR) | payer BC, SELFPAY ==
[2025-02-14 15:54] LABS: Hematocrit 22.2 % (42.0-54.0); Hemoglobin 6.7 g/dL (14.0-18.0)
[2025-02-15 08:12] VITALS: BP 92/68; PULSE 112; TEMP 36.4; O2SAT 98
[2025-02-15] MEDS: 0.9 % SODIUM CHLORIDE 250 ML 10 ML IV (08:30)
[2025-02-15] MEDS: ACETAMINOPHEN 325 MG TABLET 650 MG PO (08:30)
[2025-02-15] MEDS: DIPHENHYDRAMINE HCL 25 MG CAPSULE PO (08:30)
--- NOTE | 2025-02-15 08:30 | PC.NURSE ---
0800: Pt. to [facility] via w/c accompanied by . Assisted to recliner. VSS. #22 gauge IV initiated on 3rd attempt. Blood drawn for ordered lab. Pt. tolerated with min. c/o. Warm blankets provided. Drinking water from home.
[2025-02-15 08:44] VITALS: BP 97/68; PULSE 112; TEMP 36.4; O2SAT 98
--- NOTE | 2025-02-15 08:51 | PC.NURSE ---
0848: 1 unit PRBC initiated at this time. Pt. to reclined position and attempts to sleep. Denies needs.
[2025-02-15 09:03] VITALS: BP 100/65; PULSE 104; TEMP 36.4; O2SAT 97
--- NOTE | 2025-02-15 09:10 | PC.NURSE ---
0910: Tolerating transfusion without c/o. VSS. IV site remains clear.
[2025-02-15 09:53] VITALS: BP 112/68; PULSE 100; TEMP 36.6; O2SAT 94
--- NOTE | 2025-02-15 09:54 | PC.NURSE ---
Resting quietly. Denies c/o or needs. VSS.
[2025-02-15 10:15] VITALS: BP 100/62; PULSE 100; TEMP 36.4; O2SAT 98
== END 2025-03-14 08:07 | disposition home or self-care (01) ==
LOC: LAB 08:00
PROVIDERS: PCP Nurse Practitioner; Visit Provider Nurse Practitioner Gerontology
DX: Z51.81 Encounter for therapeutic drug level monitoring (principal); Z79.01 Long term (current) use of anticoagulants; D64.9 Anemia, unspecified
CPT/HCPCS: 36415; 36430; 85014; 85018; 86850; 86900; 86901; 86923; P9016

== ENCOUNTER 2025-02-18 17:31 | Emergency (ER) | payer BC, SELFPAY ==
--- OUTSIDE RECORDS SUMMARY | 2024-10-23 06:08 | XMS_ITS ---
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
--- OUTSIDE RECORDS SUMMARY | 2024-10-23 10:00 | XMS_ITS ---
Author Organization The [facility] in [place] Address [address] [place] [address] Care Team Providers Care Robotics Technologist Name Role Phone Brandi Fiore Primary Care Provider Unavail able Yordan Carbajal Unavailable [phone] Allergies Allergen (clinical drug ingredient) Drug/Non Drug [...] and if the patient has been scheduled? 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) Active confirmed Vital Signs Weight 193.6 lbs 10/23/2024 Height 68 in 10/23/2024 Blood pressure systolic 105 mm Hg 10/24/19 25 Blood pressure diastolic 70 mm Hg 025 Temperature 97.1 degrees Fahrenheit 10/24/19 Heart Rate 109 /min 10/23/2024 Respiratory Rate 18 /min 10/23/2024 BMI 29.43 kg/m2 10/23/2024 Oximetry 94 % 10/23/2024 Encounters Encounter Location Date Provider Diagnosis [facility] [place] [address] [place] [address] 10/23/2024 Yordan Carbajal Squamous cell carcinoma of [...] will see if an internal referral to [facility] interventional pulmonology can be made. If not, I can place one. He continues to lose weight. He was 201.8# on 10/09/2024 - today (10/23/2024), he is 193.6#. There is significant mediastinal lymphadenopathy which appears to be compressing the mid-esophagus, leading to esophgaela dysphagia, limiting further his caloric intake. Discussed healthy diet, consider Ensure or Boost. He will benefit from a mfg assoc/dietic satish with oncological treatment. Will have him [...] will see if an internal referral to [facility] interventional pulmonology can be made. If not, I can place one. He continues to lose weight. He was 201.8# on 10/09/2024 - today (10/23/2024), he is 193.6#. There is significant mediastinal lymphadenopathy which appears to be compressing the mid-esophagus, leading to esophgaela dysphagia, limiting further his caloric intake. Discussed healthy diet, consider Ensure or Boost. He will benefit from a mfg assoc/video effects editor with oncological treatment. Will have him return [...] Follow Up: 2 Weeks, Reason: Cough, hemoptysis Progress Notes * Frantz ROA IIDOB:[birth year] (63 yo M)Acc No.[id number]:10/23/2024 Follow Up Patient: Mike Frantz DAVILA II Provider: Akosua Carbajal DO :1960 A ge:63 Y S ex:Male Date:10/23/2024 Address:[address] [place], [place] [address] Pcp:JOSTIN Garcia Check In:01:57 PM ESTCheck O [...] a PET Scan performed on 10/18/2024 at [facility]. 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 Martinez 2015Le carpal tunnel release - Dr. Cuevas 12/23/17Right carpal tunnel release - Dr. Cuevas 08/25/18TURP - Dr. Vásquez 05/17/19Bronchoscopy 10/17/2024 * Hospitalization/Major Diagno stic Procedure: L john mass/Hypoxia-[facility] 10/06/2024 * Family History: F ather: alive, [...] iscellaneous: O ccupation O ccupation: R etired /[employer] Israely Pets: Dog. D rugs/Alcohol: D rugs H [...] as needed Inhalation every 4 hrs Breztri Aerosphere(Hlctwwz-Jkejhnpccvz-Qtnwkirujt) 160-9-4.8 MCG/ACT Aerosol 2 puffs Inhalation Twice a day Not-Taking/PRN Albuterol Sulfate HFA 108 (90 Base) MCG/ACT Aerosol Solution 1 puff as needed Inhalation every 4 hrs Not-Taking/PRN Breztri Aerosphere(Spzopzk-Ggjwjnnxzdn-Yyhxbwuvim) 160-9-4.8 MCG/ACT Aerosol 2 puffs Inhalation Twice [...] Education on smoking effects provided?10/23/2024 Former B [employer] PLAN Above Normal BMI Follow-up D ietary management education, guidance, and counseling * Disposition & Communication: A ttestation: Over 40 minutes spent ebix-wr-ayur with the patient & his discussing the bronchoscopy and PET results, referral to oncology, and treatment plan for hemoptysis, cough, and weight loss. * Follow Up: 2 Weeks (Reason: Cough, hemoptysis) * * Sign off status: Completed Visit Status: C HK (Check Out) true * Provider: Akosua Carbajal DO Date: 0 10/23/2024 Generated for Marco renteria/Aicha/Maria Citting on: 0 02/18/2025 05:42 PM EDT History and Physical Notes * HPI [...] a PET Scan performed on 10/18/2024 at [facility]. Examination Category Sub-Category Detail Notes Category Not es Exam GENERAL APPEARANCE: Appears stated age Skin Normal Mouth [place] and moist Trachea Midline Chest Normal Respiratory Normal Movements, Ef fort Normal Auscultation Diminished in clinical reviewer ior right lung field, remaining lung is clear to auscultation Cardiac Regular rate & rhyth m Gastrointestinal Normal Vascular No edema Musculoskeletal Normal posture Neurological Focal, intact Psychiatric Alert and oriented x 3. Anxious Mentation/Cognition Normal Oropharynx Mallampati Class III Consultation Request Notes Referral Date Referring Provider Referred Provider Not es 10/23/2024 Yordan Carbajal Vivek Newly diatariq nosed squamous cell carcinoma right lung obstructing the bronchus intermedius
--- OUTSIDE RECORDS SUMMARY | 2024-10-30 06:00 | XMS_ITS ---
Author Organization [facility] in [place] Address [address] [place] [address] Care Team Providers Care Payment Specialist Name Role Phone Brandi Fiore Primary Care Provider Yordan Mclain Unavailable [phone] REASON FOR VISIT 2w F/U - Bronchoscopy Encounters Encounter Location Date Provider Diagnosis Pulmonary Medicine [place] [address] [place] [address] 10/30/2024 Yordan Feliciano Plan Of Treatment No Information Progress Notes * Frantz ROA IIDOB:[birth year] (64 yo M)Acc No.[id number]:10/30/2024 UNLOCKED PROGRESS NOTE Follow Up Patient: Mike DAVILAFrantz II Provider: Akosua Feliciano DO :1960 A ge:63 Y S ex:Male Date:10/30/2024 Address:[address] [place], [place] [id number] Pcp:JOSTIN Garcia Subjective: * Chief Complaints: * 1 . 2w F/U - Bronchoscopy. * Medical History: Objective: * Vitals: Assessment: Plan: * Treatment: * * Electronic signature of Mignon Feliciano DO on 02/18/2025 at 05:43 PM EDT Sign off status: Pending Visit Status: R /S (Rescheduled) * Provider: Akosua Feliciano DO Date: 0 10/30/2024 Generated for Marco renteria/Aicha/Ab on: 0 02/18/2025 05:43 PM EDT
--- OUTSIDE RECORDS SUMMARY | 2024-11-07 09:00 | XMS_ITS ---
Author Organization The [facility] in [place] Address [address] [place] [address] Care Team Providers Care It Application Support Analyst Name Role Phone Brandi Fiore Primary Care Provider Unavail able Yordan Feliciano Unavailable [phone] Allergies Allergen (clinical drug ingredient) Drug/Non Drug Allergy documented on EMR Reaction Allergy Type Onset Date Status sulfamethoxazole / trimethoprim Bactrim fluid retention Drug Allergy Active codeine Codeine sweating Drug Allergy Active REASON FOR VISIT 2w F/U - Hemoptysis Medications Medication SIG (Take, Route, Frequency, Duration) Notes Start Date End Date Status Meclizine HCl 25 MG TAKE 1 TABLET BY MOUTH THREE TIMES A DAY Oral for 6 Days Active Metoprolol Succinate ER 50 MG TAKE 1 TABLET BY MOUTH EVERY DAY FOR 90 DAYS for 90 Active Mucinex DM 30-600 MG 1 tablet as needed Orally every 12 hrs Active Mucus Relief 400 MG 1 tablet as needed Orally every 4 hrs Active Multi Vitamin Mens - 1 tablet Orally Onc e a day for 30 day(s) Active Benzonatate 200 MG 1 capsule as needed for cough Orally Three times a day for 30 days 10/23/2024 Active Cyclobenzaprine HCl 10 MG TAKE 1 TABLET BY MOUTH EVERY DAY AT BEDTIME NEEDED Orally for 90 days Active Fish Oil 1000 MG 1 capsule Orally Three times a day Active levoFLOXacin 750 MG TAKE 1 TABLET BY MOUTH EVERY DAY FOR 14 DAYS Oral for 14 Days Active Vitamin C 1000 MG 1 tablet Orally Once a day Active Zinc 50 MG 1 capsule Orally Onc e a day for 30 day(s) Active Albuterol Sulfate HFA 108 (90 Base) MCG/ACT 1 puff as needed Inhalation every 4 hrs 09/13/2024 Not-Taking Breztri Aerosphere 160-9-4.8 MCG/ACT 2 puffs Inhalation Twice a day 09/25/2024 Not-Taking predniSONE 10 MG Oral for 21 Days Active Tylenol 325 MG 1 tablet as needed Orally every 6 hrs Active Social History Tobacco Use: Social History Observation Description Date Details (start date - stop date) Former Smoker NA - NA Tobacco Control (Standard) Question Answer Notes Tobacco use: Former smoker How long has it been since y ou last smoked? 5-10 years Additional Findings: Tobacco non-user Ex -very heavy cigarette smoker (40+/day) Section Notes: , retired. Quit smoking in 2017 Vital Signs Weight 210.8 lbs 11/07/2024 Height 68 in 11/07/2024 Blood pressure systolic 130 mm Hg 11/08/19 Blood pressure diastolic 77 mm Hg 025 Temperature 96.8 degrees Fahrenheit 11/08/19 Heart Rate 92 /min 11/07/2024 Respiratory Rate 18 /min 11/07/2024 BMI 32.05 kg/m2 11/07/2024 Oximetry 95 % 11/07/2024 Encounters Encounter Location Date Provider Diagnosis Pulmonary Medicine [address] [address] 11/07/2024 Yordan Feliciano Squamous cell carcinoma of bronchus of right lung C34.91 and History of tobacco abuse Z87.891 Assessments Encounter Date Diagnosis (ICD Code) Assessment Notes Treatment Notes Treatment Clinical Notes Section Notes 11/07/2024 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 MRI brain 2024 negative for mets. He has seen Dr. Perez on 10/27/2024 who recommended chemoradiation followed by maintenance durvalumab. He has been referred to [facility] interventional pulmonology in an attempt to remove the mass causing an endobronchial lesion in the bronchus intermedius. This has caused several bouts of postobstructive pneumonia, for which he was recently hospitalized and remains on Levaquin treatment. As of this time, I do not have anything else to offer - he is set up with oncology and was referred to interventional pulmonology. Patient may return PRN at this point. 11/07/2024 History of tobacco abuse (ICD-10 - Z87.891) 2ppd x 37 years, quit 12/201611/07/2024 Other Plan Of Treatment Treatment Notes Assessment Notes Squamous cell carcinoma of b feltonchus of right lung T4N2M0 - stage IIIB History: Patient presented with chronic cough beginning [...] other evidence of metastatic disease. MRI brain 2024 negative for mets. He has seen Dr. Perez on 10/27/2024 who recommended chemoradiation followed by maintenance durvalumab. He has been referred to [facility] interventional pulmonology in an attempt to remove the mass causing an endobronchial lesion in the bronchus intermedius. This has caused several bouts of postobstructive pneumonia, for which he was recently hospitalized and remains on Levaquin treatment. As of this time, I do not have anything else to offer - he is set up with oncology and was referred to interventional pulmonology. Patient may return PRN at this point. History of tobacco abuse 2ppd x 37 years, quit 12/2016 Next Appt Details Follow Up: PRN, Reason: Progress Notes * Frantz ROA IIDOB:[birth year] (64 yo M)Acc No.[id number]:11/07/2024 Follow Up Patient: Mike Frantz DAVILA II Provider: Akosua Feliciano DO :1960 A ge:64 Y S ex:Male Date:11/07/2024 Address:[facility] [id number] Pcp:JOSTIN Garcia Check In:12:54 PM ESTCheck O ut:02:02 PM EST Subjective: * Chief Complaints: * 2 w F/U - Hemoptysis * HPI: G eneral: Patient was admitted 11/03-11/06 for syncope, treated with postobstructive pneumonia and severe sepsis. He is feeling better today. Reviewed oncology note - saw Dr. Perez on 10/27/2024 who referred him to [facility] interventional pulmonology. Plans are for chemoradiation. MRI 2024 was negative for any brain mets. Breathing is okay today. MA Intake Comments:. Patient presents for a follow-up after being seen by [facility] Oncology. Patient reports being discharged from [facility] yesterday due to his breathing. Patient denies any complaints with his breathing today. Patient was discharged home on Prednisone & Levaquin. * ROS: G eneral/Constitutional: Fever or sweats a dmits. C hange of appetite p oor. W eight Change l oss. H EENT: Dry mouth d enies. S ore throat d enies. O ral Ulcers d enies. P ost Nasal Drip D enies. C ongestion D enies. H oarseness?Denies. C ardiovascular: Tachycardia d enies. E jason D enies. P alpitations d enies. R espiratory: Pleurisy D enies. D yspnea w ith exertion. C ough c hronic,productive,yellow. H emoptysis a dmits. W heezing a dmits. G astrointestinal: Acid Reflux/GERD/Heartburn d enies. D ysphagia a dmits. M usculoskeletal: Arthralgias/joint pain D enies. S kin: Easy bruising d enies. R nisha d enies. ? N eurologic: Syncope s everal bouts over past week. S eizures d enies. T remor d enies. H [...] * Hospitalization/Major Diagno stic Procedure: L john mass/Hypoxia-TB 10/06/2024Syncope-TB 11/03/2024 * Family History: F ather: alive, diagnosed [...] iscellaneous: O ccupation O ccupation: R etired /[employer] Pets: Dog. D rugs/Alcohol: D rugs H [...] Quit smoking in 2016. * Medications: T akingBenzonatate 200 MG Capsule 1 capsule as needed for cough Orally Three times a day Cyclobenzaprine HCl 10 MG Tablet TAKE 1 TABLET BY MOUTH EVERY DAY AT BEDTIME NEEDED Orally Fish Oil 1000 MG Capsule 1 capsule Orally Three times a day levoFLOXacin 750 MG Tablet TAKE 1 TABLET BY MOUTH EVERY DAY FOR 14 DAYS Oral Meclizine HCl 25 MG Tablet TAKE 1 TABLET BY MOUTH THREE TIMES A DAY Oral Metoprolol Succinate ER 50 MG Tablet Extended Release 24 Hour TAKE 1 TABLET BY MOUTH EVERY DAY FOR 90 DAYS Mucinex DM(DM-guaiFENesin ER) 30-600 MG Tablet Extended Release 12 Hour 1 tablet as needed Orally every 12 hrs Mucus Relief(guaiFENesin) 400 MG Tablet 1 tablet as needed Orally every 4 hrs Multi Vitamin Mens - Tablet 1 tablet Orally Once a day predniSONE 10 MG Tablet Oral Tylenol(Acetaminophen) 325 MG Tablet 1 tablet as needed Orally every 6 hrs Vitamin C 1000 MG Tablet 1 tablet Orally Once a day Zinc 50 MG Capsule 1 capsule Orally Once a day Taking Benzonatate 200 MG Capsule 1 capsule as needed for cough Orally Three times a day Taking Cyclobenzaprine HCl 10 MG Tablet TAKE 1 TABLET BY MOUTH EVERY DAY AT BEDTIME NEEDED Orally Taking Fish Oil 1000 MG Capsule 1 capsule Orally Three times a day Taking levoFLOXacin 750 MG Tablet TAKE 1 TABLET BY MOUTH EVERY DAY FOR 14 DAYS Oral Taking Meclizine HCl 25 MG Tablet TAKE 1 TABLET BY MOUTH THREE TIMES A DAY Oral Taking Metoprolol Succinate ER 50 MG Tablet Extended Release 24 Hour TAKE 1 TABLET BY MOUTH EVERY DAY FOR 90 DAYS Taking Mucinex DM(DM-guaiFENesin ER) 30-600 MG Tablet Extended Release 12 Hour 1 tablet as needed Orally every 12 hrs Taking Mucus Relief(guaiFENesin) 400 MG Tablet 1 tablet as needed Orally every 4 hrs Taking Multi Vitamin Mens - Tablet 1 tablet Orally Once a day Taking predniSONE 10 MG Tablet Oral Taking Tylenol(Acetaminophen) 325 MG Tablet 1 tablet as needed Orally every 6 hrs Taking Vitamin C 1000 MG Tablet 1 tablet Orally Once a day Taking Zinc 50 MG Capsule 1 capsule Orally Once a day Not-Taking/PRNAlbuterol Sulfate HFA 108 (90 Base) MCG/ACT Aerosol Solution 1 puff as needed Inhalation every 4 hrs Breztri Aerosphere(Iwdhjdw-Pkocabonudv-Kxqgtcjdzv) 160-9-4.8 MCG/ACT Aerosol 2 puffs Inhalation Twice a day Not-Taking/PRN Albuterol Sulfate HFA 108 (90 Base) MCG/ACT Aerosol Solution 1 puff as needed Inhalation every 4 hrs Not-Taking/PRN Breztri Aerosphere(Vujgrra-Pxktskjwwvt-Aelytvwhiq) 160-9-4.8 MCG/ACT Aerosol 2 puffs Inhalation Twice a day DiscontinuedAmoxicillin-Pot Clavulanate 875-125 MG Tablet 1 tablet Orally BID predniSONE 20 MG Tablet 1 tablet Orally QD With foodDiscontinued Amoxicillin-Pot Clavulanate 875-125 MG Tablet 1 tablet Orally BID Discontinued predniSONE 20 MG Tablet 1 tablet Orally QD With food * Allergies: B actrim: fluid retention - Side EffectsCodeine: sweating - Allergyno[Allergies Verified] Objective: * Vitals: W t:210.8lbs, Ht: 68 in, BP:sittin/77mm Hg, Temp:Forehead:96.8F, HR:92/min, RR:18/min, BMI:32.05Index, Oxygen sat %:Room Air:95%, Ht-cm: 172.72 cm, Wt-k.62 kg. * Examination: E xam: GENERAL APPEARANCE: A ppears tired. Skin N ormal. Mouth P ink and moist. Oropharynx M allampati Class III. Trachea M idline. Chest N ormal. Respiratory Normal M ovements, E ffort N ormal. Auscultation R LL diminished, lungs are clear of any wheezes, crackles, or rhonchi. Cardiac R egular rate & rhythm. Gastrointestinal N ormal. Vascular N o edema. Musculoskeletal N ormal posture. Neurological F ocal, intact. Psychiatric A lert and oriented x3. Mentation/Cognition N ormal. Assessment: * Assessment: 1. S quamous cell carcinoma of bronchus of right lung - C34.91 (Primary) 2 .?History of tobacco abuse - Z87.891 Plan: * Treatment: 2. H istory of tobacco abuse Notes: 2ppd [...] tobacco use and urged to quit. 0 11/07/2024 Former Education on smoking effects provided?11/07/2024 Former B [place] ACTION PLAN Above Normal BMI Follow-up D ietary management education, guidance, and counseling * Follow Up: P RN * * Sign off status: Completed Visit Status: C HK (Check Out) true * Provider: Akosua Feliciano DO Date: 0 11/07/2024 Generated for Marco renteria/Aicha/Maria Citting on: 0 02/18/2025 05:41 PM EDT History and Physical Notes * HPI (History of Present Illness) Category Sub-Category Detail Notes Category Not es General Patient present s for a follow-up after being seen by [facility]. Patient reports being discharged from [facility] yesterday due to his breathing. Patient denies any complaints with his breathing today. Patient was discharged home on Prednisone & Levaquin. Examination Category Sub-Category Detail Notes Category Not es Exam GENERAL APPEARANCE: Appears tired Skin Normal Mouth [place] and moist Trachea Midline Chest Normal Respiratory Normal Movements, Ef fort Normal Auscultation RLL diminished, lung s are clear of any wheezes, crackles, or rhonchi Cardiac Regular rate & rhyth m Gastrointestinal Normal Vascular No edema Musculoskeletal Normal posture Neurological Focal, intact Psychiatric Alert and oriented x 3 Mentation/Cognition Normal Oropharynx Mallampati Class III
--- OUTSIDE RECORDS SUMMARY | 2025-02-05 09:20 | XMS_ITS | Encounter Summary ---
Author Organization [facility] Address [address] [place] [address] Care Team Providers Care Motor Rebuilder Name Role Phone Brandi Alvarado PSYCHIATRIC NP.DOUGH CUTTING MACHINE OPERATOR Primary Care Provider Blanquita Hargrove RN Unavailable [phone] Kvng Perez MD Unavailable [phone] Annel Alas Unavailable Unavailable Ricardo Alva RN Unavailable Unava ilable Kisha Craig PSYCHIATRIC NP.DOUGH CUTTING MACHINE OPERATOR Unavailable + Source Comments In the event this information is protected by the Federal Confidentiality of Alcohol and Drug AbusePatient Records regulations: The Federal rules restrict any use of the information to criminally investigate or prosecute any alcohol or drug abuse patient.[facility] Encounter Details Date Type Department Care Team (Latest Contact Info) Description 02/05/2025 9:20 AM EDT Visit (SP) Office Hematology/Oncology [facility] [place] [address] Kvng Perez MD [address] [place] [address] [place] [address] Malignant neoplasm of lower lobe of right [...] is lower risk 9 11/15/2024 Data from: https://www.neighborhoodatlas.medicine.[facility].edu/. Last address used for calculation [address] 11/15/2024 Sex and Gender Information Value Date Recorded Sex Assigned at Not on file Legal Sex Male 8:04 AM EST Gender Identity Not on file Sexual Orientation Not on file documented as of this encounter Last Filed Vital Signs Vital Sign Reading Time Taken Comments Blood Pressure 91/63 02/05/2025 9:19 AM EDT Pulse 112 02/05/2025 9:19 AM EDT Temperature 36.6 C (97.8 F) 02/05/2025 9:19 AM EDT Respiratory Rate 16 02/05/2025 9:19 AM EDT Oxygen Saturation 97% 02/05/2025 9:19 AM EDT Inhaled Oxygen Concentration - - Weight 73.6 kg (162 lb 4.1 oz) 02/05/2025 9:19 A M EDT Height 171.5 cm (5' 7.52 ) 02/05/2025 9:19 AM ED T Body Mass Index 25.02 02/05/2025 9:19 AM EDT documented in this encounter Patient Instructions * Patient Instructions* Kvng Perez MD - 02/05/2025 9:44 AM EDT Treatment this week and next week F/u next week documented in this encounter Progress Notes * Kvng Perez MD - 02/05/2025 9:20 AM EDT Images from the original note were not included. PATIENT NAME: Frantz Roa II CLINIC NO.: [id number] ATTENDING PHYSICIAN: Kvng Perez MD DATE OF SERVICE: 02/05/[address] Yordan Feliciano [address] [facility] [address] thank you for referring Frantz Roa II for an opinion regarding Lung cancer. Some of the elements of this note have been copied from my previous progress note dated 01/18/25 . All the information has been reviewed carefully. CHIEF COMPLAINT: Lung cancer HPI: Frantz Roa II is a 63 year old year old male with PMH of HTN referred to us for lung cancer. CT chest : PET scan: C/o cough and lost 30lbs. Quit smoking in 2016. Smoked 1 pk/day for 40yrs. 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 C/o hemoptysis. C/o mild dysphagia. 11/17/24: - Recently had a pacemaker implanted on 11/09/24 due to complete heart block, which was an emergencyprocedure. He reports feeling 100% better since the pacemaker was placed. - Scheduled for bronchoscopy on 11/20/24. - Doing well. - Cough is better. 12/26/24: - Hospitalized from 12/15-12/22/24 with pneumonia - CT C/A/P at [facility] in December 2024 is negative for mets. - C/o right sided chest pain - He will finish antibiotics on Wednesday. 01/02/25: - C/o chills. - Started radiation today - Cycle 1 chemo today. - C/o loss of appetite and weight loss. 01/08/25: - Hospitalized last week with PNA. Treated with Abx. - CT chest at [facility] on 01/02/25 showed T5 lytic lesin. Cannot exclude malignancy - On PO abx - No other complaints. 01/15/25: - C/o worsening chest pain - C/o Shortness of Breath and difficulty swallowing - C/o headache and vision changes. 01/18/25: - Hospitalized at [facility] for pneumonia - C/o chest pain 02/05/25: - Doing well - C/o cough with mucus - 2.5 more weeks of radiation therapy remaining - Cycle 2 day 1 cisplatin etoposide this week - Had fever on Wednesday Current Outpatient Medications Medication Sig colchicine 0.6 mg tablet Dextromethorphan-guaiFENesin (MUCINEX FAST-MAX DM MAX) 5-100 mg/5 mL liqd Take by mouth as needed. allopurinol (ZYLOPRIM) 300 mg tablet Take 300 mg by mouth once daily. oxyCODONE IR (ROXICODONE) 5 mg immediate release tablet Take 1 tablet by mouth every 4 hours as needed for pain for up to 30 days. benzonatate (TESSALON PERLE) 100 mg capsule Take 2 capsules by mouth three times a day as needed. mirtazapine (REMERON) 7.5 mg tablet Take 1 tablet by mouth daily at bedtime. Ipratropium Crocker (ATROVENT) 21 mcg (0.03 %) nasal spray Use 2 sprays in the nose two times a day. midodrine (PROAMATINE) 2.5 mg tablet Take 1 tablet by mouth three times a day. nystatin (MYCOSTATIN) 100,000 unit/mL suspension Take 5 mL by mouth four times daily for 14 days. Swish and swallow. amoxicillin-clavulanate potassium (AUGMENTIN) 875-125 mg per tablet Take 1 tablet by mouth two times a day. sertraline (ZOLOFT) 50 mg tablet Take 50 mg by mouth once daily. esomeprazole (NEXIUM) 40 mg capsule Take 40 mg by mouth. sennosides-docusate sodium (SENNA PLUS) 8.6-50 mg capsule Take 1 capsule by mouth two times a day as needed for constipation. prochlorperazine (COMPAZINE) 10 mg tablet Take 1 tablet by mouth every 6 hours as needed. ondansetron (ZOFRAN) 8 mg tablet Take 1 tablet by mouth every 8 hours as needed for nausea/vomiting. albuterol HFA (PROVENTIL HFA, VENTOLIN HFA) 90 mcg/actuation inhaler Inhale 2 puffs as instructed every 4 hours as needed for wheezing/shortness of breath. meclizine (ANTIVERT) 25 mg tab Take 25 mg by mouth three times a day as needed. Acetaminophen 500 mg cap Take 1,000 mg by mouth four times a day as needed for pain. MEN'S MULTI-VITAMIN ORAL Take by mouth once daily. Benzonatate 200 mg capsule Take 200 mg by mouth three times a day as needed for cough. metoprolol succinate ER (TOPROL XL) 25 mg 24 hr tablet Take 25 mg by mouth once daily. (Patient taking differently: Take 50 mg by mouth once daily.) No current facility-administered medications for this visit. ALLERGIES Allergen Reactions Taxol [Paclitaxel] Other: See Comments Flush (purple in color), dizzy, hypotensive, Shortness of Breath, diaphoretic Cremophor El (Polye* Anaphylaxis Polysorbate 80 Anaphylaxis Sulfamethoxazole Other: See Comments, Unknown Urinary retention [...] malaise or fevers. No night sweats. HEENT: Positive for headaches, No changes in hearing or [...] numbness or tingling of hands/feet. No weakness. All negative except mentioned in HPI PHYSICAL EXAMINATION: BP 100/67 Pulse 105 Temp 36.7 ??C (98 ??F) (Temporal) Resp 16 Ht 169.5 cm (5' 6.73 ) Wt 86.9 kg (191 lb 9.3 oz) SpO2 99% BMI 30.25 kg/m?? There were no vitals taken for [...] No pain to percussion. Negative SLR test Lungs: decreased breath sounds on right lung. Heart: RRR without murmur, gallop, or rubs. Abdomen soft, non-tender. No masses, organomegaly Extremities: No deformities. No edema Neuro: Gait and speech normal. Reflexes normal and symmetric. Muscular strength intact. Sensation grossly intact. Rectal: Deferred : Deferred LABS: Glucose (mg/dL) Date Value 01/24/2025 93 Potassium (mmol/L) Date Value 01/24/2025 4.5 Sodium (mmol/L) Date Value 01/24/2025 131 Chloride (mmol/L) Date Value 01/24/2025 98 CO2 (mmol/L) Date Value 01/24/2025 21 Creatinine (mg/dL) Date Value 01/24/2025 0.88 BUN (mg/dL) Date Value 01/24/2025 17 Anion Gap (mmol/L) Date Value 01/24/2025 12 Calcium, Total (mg/dL) Date Value 01/24/2025 9.6 Protein, Total (g/dL) Date Value 01/24/2025 7.9 Albumin (g/dL) Date Value 01/24/2025 3.8 Bilirubin, Total (mg/dL) Date Value 01/24/2025 0.4 Alkaline Phosphatase (U/L) Date Value 01/24/2025 73 AST (U/L) Date Value 01/24/2025 10 ALT (U/L) Date Value 01/24/2025 11 WBC Date Value Ref Range Status 01/24/2025 1.99 (L) 3.70 - 11.00 k/uL Final RBC Date Value Ref Range Status 01/24/2025 3.54 (L) 4.20 - 6.00 m/uL Final Hemoglobin Date Value Ref Range Status 01/24/2025 9.4 (L) 13.0 - 17.0 g/dL Final Hematocrit Date Value Ref Range Status 01/24/2025 28.8 (L) 39.0 - 51.0 % Final MCV Date Value Ref Range Status 01/24/2025 81.4 80.0 - 100.0 fL Final MCH Date Value Ref Range Status 01/24/2025 26.6 26.0 - 34.0 pg Final MCHC Date Value Ref Range Status 01/24/2025 32.6 30.5 - 36.0 g/dL Final RDW-CV Date Value Ref Range Status 01/24/2025 15.2 (H) 11.5 - 15.0 % Final Platelet Count Date Value Ref Range Status 01/24/2025 270 150 - 400 k/uL Final Comment: No clot detected. MPV Date Value Ref Range Status 01/24/2025 10.2 9.0 - 12.7 fL Final Abs Neut Date Value Ref Range Status 01/24/2025 0.36 (L) 1.45 - 7.50 k/uL Final Lymphocytes % Date Value Ref Range Status 01/24/2025 43.7 % Final Abs Lymph Date Value Ref Range Status 01/24/2025 0.87 (L) 1.00 - 4.00 k/uL Final Monocytes % Date Value Ref Range Status 01/24/2025 32.7 % Final Abs Titus Date Value Ref Range Status 01/24/2025 0.65 <0.87 k/uL Final Eosin% Date Value Ref Range Status 01/15/2025 0.9 % Final Abs Eosin Date Value Ref Range Status 01/24/2025 0.07 <0.46 k/uL Final Basophils % Date Value Ref Range Status 01/24/2025 1.0 % Final Abs Baso Date Value Ref Range Status 01/24/2025 <0.03 <0.11 k/uL Final PATH: IMAGING: PET scan MRI brain (11/02/24). ASSESSMENT AND PLAN: Frantz Roa II is [...] concurrent chemoradiation therapy followed by maintenancedurvalumab - MRI brain on 11/02/24 is negative for mets. - Had a pacemaker implanted on 11/09/24 due to complete heart block. Hospitalized from 12/15-12/22/24 with pneumonia - CT C/A/P at [facility] in December 2024 is negative for mets - Right lung, bronchus intermedius, endobronchial biopsy: Squamous cell carcinoma. PD-L1 TPS 0%. - Due for cycle 1 D1 weekly carbo taxol on 01/02/25. Pt developed infusion reaction after starting Taxol infusion. - Developed sweating, hypotension, lethargy, tachycardia etc. Pt was sent to hospital. - CT chest at [facility] on 01/02/25 showed T5 lytic lesion. Cannot exclude malignancy. Monitor for now. - Recd cycle 1 cisplatin etoposide from 01/08-01/12/25. - Missed C1 D8 cisplatin due to hospitalization - Hospitalized from 01/15-01/18/25 with pneumonia PLAN: 1. Malignant neoplasm of lower lobe of right lung (HCC) - ICD9: 162.5, ICD10: C34.31 - Proceed with C2 D1 cisplatin etoposide today - Tolerating well so far without major toxicity - Continue radiation - Blood work today is unremarkable. Monitor the blood counts for now. - We will repeat PET scan 3-4 weeks after completing radiation therapy and then start maintenance Durvalumab depending on PET findings. - All his questions answered in detail. - F/u in [address] Yordan Feliciano [address] [place] [address] thank you for allowing me to participate in [facility], if there are any questions or concerns please do not hesitate to contact me at the number below. I spent a total of 30 minutes on the date of the service which included preparing to see the patient, [id number] patient care, completing clinical documentation, obtaining and/or reviewing separately obtained history, performing a medically appropriate examination, counseling and educating the pat ient/family/caregiver, ordering medications, tests, or procedures, communicating with other HCPs (not separately reported), independently interpreting results (not separately reported), communicatingresults to the patient/family/caregiver, and care coordination (not separately reported). Kvng Perez MD. Hematology/Medical Oncology [facility] Mae [phone] CC: documented in this encounter Plan of Treatment Upcoming Encounters Date Type Department Care Team (Latest Contact Info) Description 02/19/2025 11:45 AM EDT Appointment Radiation Oncology [address] [place] [address] [place] [address] Lung 02/19/2025 11:45 AM EDT Nurse Visit Radiation Oncology [address] [place] [address] [place] [address] Nurse Mae Radt [address] [place] [address] [place] [address] pulse monitoring 02/20/2025 10:30 AM EDT Office Visit Palliative Medicine [address] [place] [address] [place] [address] Kisha Craig, PSYCHIATRIC NP.DOUGH CUTTING MACHINE OPERATOR [address] [place] [address] 4 week follow up 02/20/2025 11:45 AM EDT Appointment Radiation Oncology [facility] [place] [address] Lung- Pall med 10:30 02/20/2025 11:45 AM EDT Nurse Visit Radiation Oncology [address] [place] [address] [place] [address] Mae, Nurse Radt [address] [place] [address] [place] [address] pulse monitoring 02/21/2025 8:00 AM EDT Appointment Radiation Oncology [address] [facility] [address] Lung - 845 LAB, [address], 930 CHEMO x6 HRS 02/21/2025 8:45 AM EDT Office Visit [facility] Laboratory [address] [place] [address] lab follow up and chemotx Cisplatin + IV MAG - PUT PATIENT BACK ON Wednesday02/21/2025 9:00 AM EDT Visit (SP) Office Hematology/Oncology [address] [facility] [place] [address] Kvng Perez MD [address] [place] [address] lab follow up and chemotx Cisplatin + IV MAG - PUT PATIENT BACK ON Wednesday02/21/2025 9:30 AM EDT [facility] Hematology/Oncology [address] [place] [address] Mae, Chair [address] [facility] [place] [address] lab follow up and chemotx Cisplatin + IV MAG - PUT PATIENT BACK ON Wednesday02/21/2025 11:45 AM EDT Nurse Visit Radiation Oncology [address] [facility] [place] [address] Mae, Nurse Radt [address] [facility] [place] [address] pulse monitoring 02/21/2025 12:00 PM EDT Office Visit Radiation Oncology [address] [facility] [place] [address] Ezra Moreno MD [address] [facility] [place] [address] Location: [facility] 02/22/2025 11:45 AM EDT Appointment Radiation Oncology [address] [facility] [place] [address] Lung 02/22/2025 11:45 AM EDT Nurse Visit Radiation Oncology [address] [place] [place] [address] Mae, Nurse Radt [address] [facility] [place] [address] pulse monitoring 05/28/2025 11:30 AM EST Office Visit Radiation Oncology [address] [facility] [place] [place] [address] Ezra Moreno MD [address] [facility] [place] [address] 3-4 month final radiation follow up documented as of this encounter Results * (ABNORMAL) COMPREHENSIVE METABOLIC PANEL (02/14/2025 11:10 AM EDT) [facility] Protein, Total 7.1 6.3 - 8.0 g/dL 02/14/2025 11:36 AM EDT [facility] Albumin 3.5(L) 3.9 - 4.9 g/dL 02/14/2025 11:36 AM EDT [facility] Calcium, Total 9.0 8.5 - 10.2 mg/dL 02/14/2025 11:36 AM EDT [facility] Bilirubin, Total 0.3 0.2 - 1.3 mg/dL 02/14/2025 11:36 AM EDT [facility] Alkaline Phosphatase 103 38 - 113 U/L 02/14/2025 11:36 AM EDT [facility] AST 18 14 - 40 U/L 02/14/2025 11:36 AM T [facility] ALT 10 10 - 54 U/L 02/14/2025 11:36 AM T [facility] Glucose 116(H) 74 - 99 mg/dL 02/14/2025 11:36 AM T [facility] Comment: The [place] Diabetes Association (ADA) provides guidance for cutoff values for fasting glucose and random glucose. The ADA defines fasting as no caloric intake for at least 8 hours. Fasting plasma glucose results between 100 to 125 mg/dL indicate increased risk for diabetes (prediabetes). Fasting plasma glucose results greater than or equal to 126 mg/dL meet the criteria for diagnosis of diabetes. In the absence of unequivocal hyperglycemia, results should be confirmed by repeat testing. In a patient with classic symptoms of hyperglycemia or hyperglycemic crisis, random plasma glucose results greater than or equal to 200 mg/dL meet the criteria for diagnosis of diabetes. Reference: Standards of Medical Care in Diabetes 2016, [place] [employer] Association. Diabetes Care. 2016.39(Suppl 1). BUN 21 9 - 24 mg/dL 02/14/2025 11:36 AM EDT [facility] Creatinine 0.80 0.73 - 1.22 mg/dL 02/14/2025 11:36 AM EDT [facility] Sodium 136 136 - 144 mmol/L 02/14/2025 11:36 AM EDT [facility] Potassium 4.1 3.7 - 5.1 mmol/L 02/14/2025 11:36 AM EDT [facility] Chloride 105 98 - 107 mmol/L 02/14/2025 11:36 AM EDT [facility] CO2 19(L) 22 - 30 mmol/L 02/14/2025 11:36 AM EDT [facility] Anion Gap 12 8 - 15 mmol/L 02/14/2025 11:36 AM EDT [facility] Estimated Glomerular Filtration Rate 99 >=60 mL/min/1. 73m 02/14/2025 11:36 AM EDT [facility] Comment:Estimated Glomerular Filtration Rate (eGFR) is calculated using the 2020 CKD-EPI creatinine equation. This equation utilizes serum creatinine, sex, and age as parameters. The creatinine assay has traceable calibration to isotope dilution- mass spectrometry. Refer to KDIGO guidelines for clinical interpretation. In patients with unstable renal function, e.g. those with acute kidney injury, the eGFR may not accurately reflect actual GFR. Blood BLOOD SPECIMEN / Unknown Venipuncture / Unknown 02/14/2025 11:10 AM EDT 02/14/2025 11:10 AM EDT us Kvng Perez MD LABORATORY Final Res ult [facility] [address] [place] [address] * (ABNORMAL) COMPLETE BLOOD COUNT AND DIFFERENTIAL (02/14/2025 11:10 AM EDT) WBC 5.05 3.70 - 11.00 k/uL 02/14/2025 4:22 PM EDT [facility] RBC 2.77(L) 4.20 - 6.00 m/uL 02/14/2025 4:22 PM EDT [facility] Hemoglobin 7.0(L) 13.0 - 17.0 g/dL 02/14/2025 4:22 PM EDT [facility] Hematocrit 22.5(L) 39.0 - 51.0 % 02/14/2025 4:22 PM EDT [facility] MCV 81.2 80.0 - 100.0 fL 02/14/2025 4:22 PM EDT [facility] MCH 25.3(L) 26.0 - 34.0 pg 02/14/2025 4:22 PM EDT [facility] MCHC 31.1 30.5 - 36.0 g/dL 02/14/2025 4:22 PM EDT [facility] RDW-CV 16.4(H) 11.5 - 15.0 % 02/14/2025 4:22 PM EDT [facility] Platelet Count 76(L) 150 - 400 k/uL 02/14/2025 4:22 PM EDT [facility] Comment:No clot detected. MPV 10.3 9.0 - 12.7 fL 02/14/2025 4:22 PM EDT [facility] NRBC 0.0 /100 WBC 02/14/2025 4:22 PM EDT [facility] Absolute nRBC <0.01 <0.01 k/uL 02/14/2025 4:22 PM EDT [facility] Neutrophils % 96.5 % 02/14/2025 4:22 PM EDT [facility] Abs Neut (Segs + Bands) 4.87 1.45 - 7.50 k/uL 02/14/2025 4:22 PM EDT [facility] Lymphocytes % 2.6 % 02/14/2025 4:22 PM EDT [facility] Abs Lymph (Normal + Reactive) 0.13(L) 1.00 - 4.00 k/uL 02/14/2025 4:22 PM EDT [facility] Monocytes % 0.0 % 02/14/2025 4:22 PM EDT [facility] Abs Titus 0.00 <0.87 k/uL 02/14/2025 4:22 PM EDT [facility] Eosin% 0.9 % 02/14/2025 4:22 PM EDT [facility] Abs Eosin 0.05 <0.46 k/uL 02/14/2025 4:22 PM EDT [facility] Basophils % 0.0 % 02/14/2025 4:22 PM EDT [facility] Abs Baso 0.00 <0.11 k/uL 02/14/2025 4:22 PM EDT [facility] Platelet Estimate Decreased 02/14/2025 4:22 PM EDT [facility] Red Cell Morph Reviewed: see results of individual morphologies 02/14/2025 4:22 PM EDT [facility] Polychromasia Slight 02/14/2025 4:22 PM EDT [facility] Anisocytosis Present 02/14/2025 4:22 PM EDT [facility] Ovalocytes Few 02/14/2025 4:22 PM EDT [facility] Diff Type Manual 02/14/2025 4:22 PM EDT [facility] Blood BLOOD SPECIMEN / Unknown Venipuncture / Unknown 02/14/2025 11:10 AM EDT 02/14/2025 11:10 AM EDT Narrative [facility] - 02/14/2025 4:22 PM EDT ANC=4.52 The following results were reported as preliminary values due to instrument flagging. Interpret with caution. Final results may vary. Results requested and read back by: Mason WONG NP [facility] 02/14/2025 1116 AWHITE This is an appended report. These results have been appended to a previously verified report. us Kvng Perez MD LABORATORY Final Res ult [facility] [address] [facility] [address] [place] [address], [facility] [address] [place] [address] documented in this encounter Visit Diagnoses Diagnosis Malignant neoplasm of lower lobe of right lung (HCC)- Primary documented in this encounter Care Teams Motor Rebuilder Relationship Specialty Start Date End Date Brandi Alvarado, PSYCHIATRIC NP.DOUGH CUTTING MACHINE OPERATOR [address] [place] [address] PCP - General Nurse Practitioner 10/27/24 Blanquita Hargrove, RN [address] [place] [address] [place] [address] Specialty Machine Puller And Laster Hematology/Oncology 11/29/24 Kvng ePrez MD [address] [place] [address] [place] [address] Physician Hematology/Oncology 11/29/24 Annel Alas LSW Ndt Inspector 01/08/25 Ricardo Alva, RN Specialty Machine Puller And Laster Hospice & Palliative Medicine 01/23/25 Kisha Craig, PSYCHIATRIC NP.DOUGH CUTTING MACHINE OPERATOR [address] [place] [address] [place] [id number] Hospice & Palliative Medicine 01/23/25 documented as of this encounter
--- OUTSIDE RECORDS SUMMARY | 2025-02-05 09:45 | XMS_ITS | Encounter Summary ---
Author Organization [facility] Address [address] [place] [address] Care Team Providers Care Mid Level Project Manager Name Role Phone Brandi Alvarado COMMODITY TRADER.OVEN TECHNICIAN Primary Care Provider Blanquita Hargrove RN Unavailable [phone] Kvng Perez MD Unavailable [phone] Annel Alas Unavailable Unavailable Ricardo Alva RN Unavailable Unava ilable Kisha Craig COMMODITY TRADER.OVEN TECHNICIAN Unavailable + Source Comments In the event this information is protected by the Federal Confidentiality of Alcohol and Drug AbusePatient Records regulations: The Federal rules restrict any use of the information to criminally investigate or prosecute any alcohol or drug abuse patient.[facility] Reason for Visit * [place] Prior Authorization (Routine) - Authorized Specialty Diagnoses / Procedures Referred By Contac t Referred To Contact Diagnoses Malignant neoplasm of lower lobe of right lung (HCC) Procedures ETOPOSIDE 10 MG INJ CISPLATIN 10 MG INJECTION PALONOSETRON HCL FOSAPREPITANT INJECTION Kvng Perez MD [address] [place] [address] [place] [address] Phone: tel: fax: Hematology/Oncology [address] [place] [address] [place] [address] Phone: tel: fax: Referral ID Status Reason Start Date Expiration Date V isits Requested Visits Authorized [id number] Authorized 01/08/2025 06/13/2025 99 99 Encounter Details Date Type Department Care Team (Latest Contact Info) Description 02/05/2025 9:45 AM EDT [facility] Center Hematology/Oncology [address] [place] [address] [place] [address] Malignant neoplasm of lower lobe of right [...] is lower risk 9 11/15/2024 Data from: https://www.neighborhoodatlas.medicine.[facility].edu/. Last address used for calculation [address] 11/15/2024 Sex and Gender Information Value Date Recorded Sex Assigned at Not on file Legal Sex Male 8:04 AM EST Gender Identity Not on file Sexual Orientation Not on file documented as of this encounter Progress Notes * Maya Carney RN - 02/05/2025 10:12 AM EDT Lab potassium 3.2 today, secure chat message sent to Dr Perez orders to give 20 meq IV KCL with today's treatment. Treatment nurse and pharmacy aware PRITI Hernandez RN documented in this encounter Plan of Treatment Upcoming Encounters Date Type Department Care Team (Latest Contact Info) Description 02/19/2025 11:45 AM EDT Appointment Radiation Oncology [address] [place] [address] [place] [address] Lung 02/19/2025 11:45 AM EDT Nurse Visit Radiation Oncology [address] [facility] [place] [address] Mae, Nurse Radt [address] [facility] [place] [address] pulse monitoring 02/20/2025 10:30 AM EDT Office Visit Palliative Medicine [address] [facility] [place] [address] Kisha Craig, COMMODITY TRADER.OVEN TECHNICIAN [address] [place] [address] 4 week follow up 02/20/2025 11:45 AM EDT Appointment Radiation Oncology [address] [facility] [place] [address] Lung- Pall med 10:30 02/20/2025 11:45 AM EDT Nurse Visit Radiation Oncology [address] [facility] [place] [address] Mae, Nurse Radt [address] [facility] [place] [address] pulse monitoring 02/21/2025 8:00 AM EDT Appointment Radiation Oncology [address] [facility] [place] [address] Lung - 845 LAB, 9 MILLS, 930 CHEMO x6 HRS 02/21/2025 8:45 AM EDT Office Visit [facility] Laboratory [address] [facility] [place] [address] lab follow up and chemotx Cisplatin + IV MAG - PUT PATIENT BACK ON Wednesday02/21/2025 9:00 AM EDT Visit (SP) Office Hematology/Oncology [address] [facility] [place] [address] Kvng Perez MD [address] [facility] [place] [address] lab follow up and chemotx Cisplatin + IV MAG - PUT PATIENT BACK ON Wednesday02/21/2025 9:30 AM EDT [facility] Center Hematology/Oncology [address] [facility] [place] [address] Mae, Chair [address] [place] [address] [place] [address] lab follow up and chemotx Cisplatin + IV MAG - PUT PATIENT BACK ON Wednesday02/21/2025 11:45 AM EDT Nurse Visit Radiation Oncology [address] [place] [address] [place] [address] Mae, Nurse Radt [address] [place] [place] [address] [place] [address] pulse monitoring 02/21/2025 12:00 PM EDT Office Visit Radiation Oncology [address] [place] [address] [place] [address] Ezra Moreno MD [address] [place] [address] [place] [address] Location: -ON TREATMENT REV 02/22/2025 11:45 AM EDT Appointment Radiation Oncology [address] [place] [place] [address] [place] [address] Lung 02/22/2025 11:45 AM EDT Nurse Visit Radiation Oncology [address] [place] [address] [place] [address] Mae, Nurse Radt [address] [place] [address] [place] [address] pulse monitoring 05/28/2025 11:30 AM EST Office Visit Radiation Oncology [address] [place] [address] [place] [address] Ezra Moreno MD [address] [address] [place] [address] 3-4 month final radiation follow up documented as of this encounter Visit Diagnoses Diagnosis Malignant neoplasm of lower lobe of right lung (HCC)- Primary documented in this encounter Administered Medications Inactive Administered Medications - up to 3 most recent administrations Medication Order MAR Action Action Date Dose Rate Site CISplatin 94 mg in NaCl 0.9% 1,144 mL (PLATINOL) 94 mg (50 mg/m2 1.88 m2 Treatment Plan BSA from Recorded weight), INTRAVENOUS, Administer over 1 Hours, ONCE, 1 dose, On Wed02/05/25 at 1200, EXP: 02/06 1600 Hazardous Chemotherapy Drug: Use appropriate PPE. Antineoplastic Vesicant for concentrations greater than 0.4 mg/mL - Antineoplastic Irritant for concentrations less than 0.4 mg/mL. Protect from Light.Indications:Malignan t neoplasm of lower lobe of right lung (HCC) New Bag/Syringe/Bottle 02/05/2025 11:33 AM EDT 94 mg dexAMETHasone sodium phosphate (PF) 10 mg injection (DECADRON) 10 mg, INTRAVENOUS, ONCE, 1 dose, On Wed02/05/25 at 1030, Administer IV doses up to 10 mg over 5 minutes. Administer doses > 10 mg over 15 to 30 minutes.Indications:Malign ant neoplasm of lower lobe of right lung (HCC) Given 02/05/2025 10:27 AM EDT 10 mg etoposide phosphate 94 mg in NaCl 0.9% 114.7 mL 94 mg (50 mg/m2 1.88 m2 Treatment Plan BSA from Recorded weight), INTRAVENOUS, Administer over 1 Hours, ONCE, 1 dose, On Wed02/05/25 at 1030, EXP 02/06 1100 Hazardous Chemotherapy Drug: Use appropriate PPE. Antineoplastic Irritant.Indications:Malig nant neoplasm of lower lobe of right lung (HCC) New Bag/Syringe/Bottle 02/05/2025 12:51 PM EDT 94 mg magnesium sulfate 1 g in D5W 100 mL 1 g, INTRAVENOUS, at 50-100 mL/hr, Administer over 1-2 Hours, ONCE, 1 dose, On Wed02/05/25 at 1030, Magnesium sulfate iv bolus will be infused at a rate of 1 gram/hr The following nursing units may administer 2 g dose over 1 hour if necessary: ICUs/PACU/ED, Adult Hematology/Oncology, Labor and Delivery, Cardiac Stepdown, Headache Clinic If necessary, a magnesium sulfate bolus may be administered greater than 2 g/hr for the following indications: Adult and Pediatric Asthma Exacerbations, Torsade de Pointes, Pediatric BMT and Hematology/Oncology, Eclampsia or PreeclampsiaIndications:Ma lignant neoplasm of lower lobe of right lung (HCC) New Bag/Syringe/Bottle 02/05/2025 1:54 PM EDT 1 g 100 mL/hr magnesium sulfate 1 g in D5W 100 mL 1 g, INTRAVENOUS, at 50-100 mL/hr, Administer over 1-2 Hours, ONCE, 1 dose, On Wed02/05/25 at 1030, Magnesium sulfate iv bolus will be infused at a rate of 1 gram/hr The following nursing units may administer 2 g dose over 1 hour if necessary: ICUs/PACU/ED, Adult Hematology/Oncology, Labor and Delivery, Cardiac Stepdown, Headache Clinic If necessary, a magnesium sulfate bolus may be administered greater than 2 g/hr for the following indications: Adult and Pediatric Asthma Exacerbations, Torsade de Pointes, Pediatric BMT and Hematology/Oncology, Eclampsia or PreeclampsiaIndications:Ma lignant neoplasm of lower lobe of right lung (HCC) New Bag/Syringe/Bottle 02/05/2025 10:27 AM EDT 1 g 100 mL/hr NaCl 0.9% iv bolus 1,000 mL 1,000 mL, INTRAVENOUS, at 999 mL/hr, Administer over 1 Hours, ONCE, 1 dose, On Wed02/05/25 at 1100Indications:Malignant neoplasm of lower lobe of right lung (HCC) New Bag/Syringe/Bottle 02/05/2025 10:27 AM EDT 1,000 mL 999 mL/hr NaCl 0.9% iv bolus 1,000 mL 1,000 mL, INTRAVENOUS, at 999 mL/hr, Administer over 1 Hours, ONCE, 1 dose, On Wed02/05/25 at 1400Indications:Malignant neoplasm of lower lobe of right lung (HCC) New Bag/Syringe/Bottle 02/05/2025 1:54 PM EDT 1,000 mL 999 mL/hr palonosetron 0.25 mg injection (ALOXI) 0.25 mg, INTRAVENOUS, ONCE, 1 dose, On Wed02/05/25 at 1030, Flush IV line with NS prior to and following administration.Indications :Malignant neoplasm of lower lobe of right lung (HCC) Given 02/05/2025 10:27 AM EDT 0.25 mg potassium chloride iv piggyback 20 mEq/100 mL 20 mEq, INTRAVENOUS, at 100 mL/hr, Administer over 1 Hours, ONCE, 1 dose, On Wed02/05/25 at 1030, NONCYTOTOXIC VESICANT If ordered with infusion rate range, start with maximum infusion rate and decrease rate if infusion is not toleratedIndications:Roshni mata neoplasm of lower lobe of right lung (HCC) New Bag/Syringe/Bottle 02/05/2025 1:54 PM EDT 20 mEq 100 mL/hr documented in this encounter Care Teams Mid Level Project Manager Relationship Specialty Start Date End Date Brandi Alvarado, COMMODITY TRADER.OVEN TECHNICIAN [facility] [place] [address] PCP - General Nurse Practitioner 10/27/24 Blanquita Hargrove, RN [address] [facility] [place] [address] [address]ty [address] Driver Hematology/Oncology 11/29/24 Kvng Perez MD [address] [place] [address] [place] [address] Physician Hematology/Oncology 11/29/24 Annel Alas LSW Sustainability Manager 01/08/25 Ricardo Alva RN Specialty Route Driver Hospice & Palliative Medicine 01/23/25 Kisha Craig, COMMODITY TRADER.OVEN TECHNICIAN [address] [facility] [place] [id number] Hospice & Palliative Medicine 01/23/25 documented as of this encounter
--- OUTSIDE RECORDS SUMMARY | 2025-02-05 15:00 | XMS_ITS | Encounter Summary ---
Author Organization [facility] Address [address] [place] [address] Care Team Providers Care Boiler Cleaner Name Role Phone Brandi Alvarado SNOW REMOVING SUPERVISOR.BLENDING TECHNICIAN Primary Care Provider Blanquita Hargrove RN Unavailable [phone] Kvng Perez MD Unavailable [phone] Annel Alas Unavailable Unavailable Ricardo Alva RN Unavailable Unava ilable Kisha Craig SNOW REMOVING SUPERVISOR.BLENDING TECHNICIAN Unavailable + Source Comments In the event this information is protected by the Federal Confidentiality of Alcohol and Drug AbusePatient Records regulations: The Federal rules restrict any use of the information to criminally investigate or prosecute any alcohol or drug abuse patient.[facility] Encounter Details Date Type Department Care Team (Late st Contact Info) Description 02/05/2025 3:00 PM EDT Nurse Visit Radiation Oncology [address] [facility] [place] [address] Mae, Nurse Radt [address] [facility] [place] [address] Malignant neoplasm of lower lobe of [...] is lower risk 9 11/15/2024 Data from: https://www.neighborhoodatlas.medicine.[facility]/. Last address used for calculation [address] 11/15/2024 Sex and Gender Information Value Date Recorded Sex Assigned at Not on file Legal Sex Male 8:04 AM EST Gender Identity Not on file Sexual Orientation Not on file documented as of this encounter Progress Notes * Csasia Cantu RN - 02/05/2025 3:30 PM EDT Frantz is here for radiation therapy with continuous pulse oximetry. Pulse SpO2 Pretx 74-98 96-98% Cone beam 78-93 95-97% Post cb 93-102 95-98% Beam on 90-65 95-98% Post tx 90-95 95% Patient tolerated treatment without concerns. Cassia Cantu RN documented in this encounter Plan of Treatment Upcoming Encounters Date Type Department Care Team (Latest Contact Info) Description 02/19/2025 11:45 AM EDT Appointment Radiation Oncology [address] [facility] [place] [address] Lung 02/19/2025 11:45 AM EDT Nurse Visit Radiation Oncology [address] [facility] [place] [address] Mae Nurse Radt [address] [facility] [place] [address] pulse monitoring 02/20/2025 10:30 AM EDT Office Visit Palliative Medicine [address] [facility] [place] [address] Kisha Craig, SNOW REMOVING SUPERVISOR.BLENDING TECHNICIAN [address] [place] [address] 4 week follow up 02/20/2025 11:45 AM EDT Appointment Radiation Oncology [address] [facility] [place] [address] Lung- Pall med 10:30 02/20/2025 11:45 AM EDT Nurse Visit Radiation Oncology [address] [facility] [place] [address] Mae, Nurse Radt [address] [facility] [place] [address] pulse monitoring 02/21/2025 8:00 AM EDT Appointment Radiation Oncology [address] [facility] [place] [address] Lung - 845 LAB, 9 MILLS, 930 CHEMO x6 HRS 02/21/2025 8:45 AM EDT Office Visit [facility] Laboratory [address] [facility] [place] [address] lab follow up and chemotx Cisplatin + IV MAG - PUT PATIENT BACK ON Wednesday02/21/2025 9:00 AM EDT Visit (SP) Office Hematology/Oncology [address] [facility] [place] [address] Kvng Perez MD [address] [facility] [place] [address] lab follow up and chemotx Cisplatin + IV MAG - PUT PATIENT BACK ON Wednesday02/21/2025 9:30 AM EDT [facility] Center Hematology/Oncology [address] [facility] [place] [address] Mae, Chair 7 [address] [facility] [place] [address] lab follow up and chemotx Cisplatin + IV MAG - PUT PATIENT BACK ON Wednesday02/21/2025 11:45 AM EDT Nurse Visit Radiation Oncology [address] [facility] [place] [address] Mae, Nurse Radt [address] [facility] [place] [address] pulse monitoring 02/21/2025 12:00 PM EDT Office Visit Radiation Oncology [address] [facility] [place] [address] Ezra Moreno MD [address] [facility] [place] [address] Location: -ON TREATMENT REV 02/22/2025 11:45 AM EDT Appointment Radiation Oncology [address] [facility] [place] [address] Lung 02/22/2025 11:45 AM EDT Nurse Visit Radiation Oncology [address] [place] [address] [place] [address] Wilkinson, Nurse Radt [address] [place] [address] [place] [address] pulse monitoring 05/28/2025 11:30 AM EST Office Visit Radiation Oncology [address] [place] [address] [place] [address] Ezra Moreno MD [address] [facility] [place] [address] 3-4 month final radiation follow up documented as of this encounter Visit Diagnoses Diagnosis Malignant neoplasm of lower lobe of right lung (HCC)- Primary documented in this encounter Care Teams Boiler Cleaner Relationship Specialty Start Date End Date Brandi Alvarado SNOW REMOVING SUPERVISOR.BLENDING TECHNICIAN [address] [place] [address] PCP - General Nurse Practitioner 10/27/24 Blanquita Hargrove RN [address] [place] [address] [place] [address] Specialty Spice Blender Hematology/Oncology 11/29/24 Kvng Perez MD [address] [place] [address] [place] [address] Physician Hematology/Oncology 11/29/24 Annel Alas LSW Millwright Apprentice 01/08/25 Ricardo Alva RN Specialty Spice Blender Hospice & Palliative Medicine 01/23/25 Kisha Craig, SNOW REMOVING SUPERVISOR.BLENDING TECHNICIAN [address] [place] [address] [place] [address] Hospice & Palliative Medicine 01/23/25 documented as of this encounter
--- OUTSIDE RECORDS SUMMARY | 2025-02-06 11:45 | XMS_ITS | Encounter Summary ---
Author Organization [facility] Address [address] [place] [address] Care Team Providers Care Inspector Wire Products Name Role Phone Brandi Alvarado PARAFFIN PLANT SWEATER OPERATOR.MANUFACTURING ASSEMBLER Primary Care Provider Blanquita Hargrove RN Unavailable [phone] Kvng Perez MD Unavailable [phone] Annel Alas Unavailable Unavailable Ricardo Alva RN Unavailable Unava ilable Kisha Craig PARAFFIN PLANT SWEATER OPERATOR.MANUFACTURING ASSEMBLER Unavailable + Source Comments In the event this information is protected by the Federal Confidentiality of Alcohol and Drug AbusePatient Records regulations: The Federal rules restrict any use of the information to criminally investigate or prosecute any alcohol or drug abuse patient.[facility] Reason for Visit * Reason Comments Pulse Monitoring Encounter Details Date Type Department Care Team (Late st Contact Info) Description 02/06/2025 11:45 AM EDT Nurse Visit Radiation Oncology [address] [facility] [place] [address] Mae, Nurse Radt [address] [facility] [place] [address] Malignant neoplasm of lower lobe of [...] is lower risk 9 11/15/2024 Data from: https://www.neighborhoodatlas.medicine.[facility].edu/. Last address used for calculation [address] 11/15/2024 Sex and Gender Information Value Date Recorded Sex Assigned at Not on file Legal Sex Male 8:04 AM EST Gender Identity Not on file Sexual Orientation Not on file documented as of this encounter Progress Notes * Macy Oviedo, PRITI - 02/06/2025 11:55 AM EDT Pulse monitored during radiation treatment. Pre Treatment Pulse 90 Pulse Ox 99% Cone Beam PUlse 83 Pulse Ox 98% Beam On Pulse 82-88 Pulse Ox 98% After Tx Pulse 87 Pulse Ox 97% Macy Oviedo, RN documented in this encounter Plan of Treatment Upcoming Encounters Date Type Department Care Team (Latest Contact Info) Description 02/19/2025 11:45 AM EDT Appointment Radiation Oncology [address] [facility] [place] [address] Lung 02/19/2025 11:45 AM EDT Nurse Visit Radiation Oncology [address] [facility] [address] Mae, Nurse Radt [address] [facility] [address] pulse monitoring 02/20/2025 10:30 AM EDT Office Visit Palliative Medicine [address] [facility] [place] [address] Kisha Craig, PARAFFIN PLANT SWEATER OPERATOR.MANUFACTURING ASSEMBLER [address] [place] [id number] 4 week follow up 02/20/2025 11:45 AM EDT Appointment Radiation Oncology [address] [place] [address] Lung- Pall med 10:30 02/20/2025 11:45 AM EDT Nurse Visit Radiation Oncology [address] [facility] [address] Mae, Nurse Radt [address] [place] [address] pulse monitoring 02/21/2025 8:00 AM EDT Appointment Radiation Oncology [address] [facility] [address] Lung - 845 LAB, 9 MILLS, 930 CHEMO x6 HRS 02/21/2025 8:45 AM EDT Office Visit [facility] [address] [facility] [address] lab follow up and chemotx Cisplatin + IV MAG - PUT PATIENT BACK ON Wednesday02/21/2025 9:00 AM EDT Visit (SP) Office Hematology/Oncology [address] [facility] [address] Kvng Perez MD [address] [facility] [address] lab follow up and chemotx Cisplatin + IV MAG - PUT PATIENT BACK ON Wednesday02/21/2025 9:30 AM EDT [facility] Center Hematology/Oncology [address] [facility] [address] Mae, Chair 7 [address] [facility] [address] lab follow up and chemotx Cisplatin + IV MAG - PUT PATIENT BACK ON Wednesday02/21/2025 11:45 AM EDT Nurse Visit Radiation Oncology [address] [place] [address] Mae, Nurse Radt [address] [place] [address] pulse monitoring 02/21/2025 12:00 PM EDT Office Visit Radiation Oncology [address] [place] [address] Ezra Moreno MD [address] [place] [address] Location: -ON TREATMENT REV 02/22/2025 11:45 AM EDT Appointment Radiation Oncology [address] [place] [address] Lung 02/22/2025 11:45 AM EDT Nurse Visit Radiation Oncology [address] [place] [address] [place] [address] Mae, Nurse Radt [address] [facility] [address] pulse monitoring 05/28/2025 11:30 AM EST Office Visit Radiation Oncology [address] [place] [address] [place] [address] Ezra Moreno MD [address] [facility] [address] 3-4 month final radiation follow up documented as of this encounter Visit Diagnoses Diagnosis Malignant neoplasm of lower lobe of right lung (HCC)- Primary documented in this encounter Care Teams Inspector Wire Products Relationship Specialty Start Date End Date Brandi Alvarado, PARAFFIN PLANT SWEATER OPERATOR.MANUFACTURING ASSEMBLER [address] [place] [address] PCP - General Nurse Practitioner 10/27/24 Blanquita Hargrove RN [address] [place] [address] [place], [place] [id number] Specialty Production Sound Mixer Hematology/Oncology 11/29/24 Kvng Perez MD [address] [place] [address] [place] [address] Physician Hematology/Oncology 11/29/24 Annel Alas LSW Tack Welder 01/08/25 Ricardo Alva RN Specialty Production Sound Mixer Hospice & Palliative Medicine 01/23/25 Kisha Craig, PARAFFIN PLANT SWEATER OPERATOR.MANUFACTURING ASSEMBLER [address] [place] [address] [place] [id number] Hospice & Palliative Medicine 01/23/25 documented as of this encounter
--- OUTSIDE RECORDS SUMMARY | 2025-02-06 12:30 | XMS_ITS | Encounter Summary ---
Author Organization [facility] Address [address] [place] [address] Care Team Providers Care Ethnographer Name Role Phone Brandi Alvarado WATERSIDE WORKER.OVEN DRIER TENDER Primary Care Provider Blanquita Hargrove RN Unavailable [phone] Kvng Perez MD Unavailable [phone] Annel Alas Unavailable Unavailable Ricardo Alva RN Unavailable Unava ilable Kisha Craig WATERSIDE WORKER.OVEN DRIER TENDER Unavailable + Source Comments In the event this information is protected by the Federal Confidentiality of Alcohol and Drug AbusePatient Records regulations: The Federal rules restrict any use of the information to criminally investigate or prosecute any alcohol or drug abuse patient.[facility] Encounter Details Date Type Department Care Team (Latest Contact Info) Description 02/06/2025 12:30 PM EDT Visit (SP) Office Hematology/Oncology [address] [place] [address] [place] [address] Madison Gagnon, TERRANCE Muscle soreness (Primary Dx) Social History Tobacco Use Types [...] is lower risk 9 11/15/2024 Data from: https://www.neighborhoodatlas.[facility]/. Last address used for calculation [address] 11/15/2024 Sex and Gender Information Value Date Recorded Sex Assigned at Not on file Legal Sex Male 8:04 AM EST Gender Identity Not on file Sexual Orientation Not on file documented as of this encounter Progress Notes * Madison Gagnon LMT - 02/06/2025 3:09 PM EDT Patient Name: Frantz Roa II : 1960 Referred For: Chair massage Diagnosis: muscle soreness Chief Complaint: Relaxation Anxiety (pre): patient declined to answer Pain (pre): patient declined to answer Stress Level (pre): patient declined to answer Therapy Provided: Massage Therapy Area(s) Treated: Neck, shoulders and back Anxiety (post): patient declined to answer Pain (post): patient declined to answer Stress Level (post): patient declined to answer Visit Outcome: Better Comments: Patient was in wheelchair --stand-by assist Treatment Plan: Hebrew massage --medium pressure to cervical neck, upper/lower trapezius, mid-lower thoracic and lower back/glutes Care Team contacted: N/A Signature: Madison Gagnon LMT Date: February 06, 2025 Time: 3:09 PM documented in this encounter Plan of Treatment Upcoming Encounters Date Type Department Care Team (Latest Contact Info) Description 02/19/2025 11:45 AM EDT Appointment Radiation Oncology [address] [place] [address] [place] [address] Lung 02/19/2025 11:45 AM EDT Nurse Visit Radiation Oncology [address] [place] [address] [place] [address] Mae, Nurse Radt [address] [facility] [place] [address] pulse monitoring 02/20/2025 10:30 AM EDT Office Visit Palliative Medicine [address] [facility] [place] [address] Kisha Craig, WATERSIDE WORKER.OVEN DRIER TENDER [address] [id number] 4 week follow up 02/20/2025 11:45 AM EDT Appointment Radiation Oncology [address] [facility] [place] [address] Lung- Pall med 10:30 02/20/2025 11:45 AM EDT Nurse Visit Radiation Oncology [address] [facility] [address] Mae, Nurse Radt [address] [facility] [address] pulse monitoring 02/21/2025 8:00 AM EDT Appointment Radiation Oncology [address] [facility] [address] Lung - 845 LAB, 9 MILLS, 930 CHEMO x6 HRS 02/21/2025 8:45 AM EDT Office Visit [facility] Laboratory [address] [facility] [place] [address] lab follow up and chemotx Cisplatin + IV MAG - PUT PATIENT BACK ON Wednesday02/21/2025 9:00 AM EDT Visit (SP) Office Hematology/Oncology [address] [facility] [address] Kvng Perez MD [address] [facility] [place] [address] lab follow up and chemotx Cisplatin + IV MAG - PUT PATIENT BACK ON Wednesday02/21/2025 9:30 AM EDT [facility] Center Hematology/Oncology [address] [facility] [address] Mae, Chair [address] [facility] [facility] [address] lab follow up and chemotx Cisplatin + IV MAG - PUT PATIENT BACK ON Wednesday02/21/2025 11:45 AM EDT Nurse Visit Radiation Oncology [address] [place] [address] [place] [address] Mae, Nurse Radt [address] [place] [address] [place] [address] pulse monitoring 02/21/2025 12:00 PM EDT Office Visit Radiation Oncology [address] [place] [address] [place] [address] Ezra Moreno MD [address] [place] [address] [place] [address] Location: -ON TREATMENT REV 02/22/2025 11:45 AM EDT Appointment Radiation Oncology [address] [place] [address] [place] [address] Lung 02/22/2025 11:45 AM EDT Nurse Visit Radiation Oncology [address] [place] [address] [place] [address] Mae, Nurse Radt [address] [place] [address] [place] [address] pulse monitoring 05/28/2025 11:30 AM EST Office Visit Radiation Oncology [address] [place] [address] [place] [address] Ezra Moreno MD [address] [place] [address] [place] [address] 3-4 month final radiation follow up documented as of this encounter Visit Diagnoses Diagnosis Muscle soreness- Primary Mylagia and myositis, unspecified documented in this encounter Care Teams Ethnographer Relationship Specialty Start Date End Date Brandi Alvarado APRN.OVEN DRIER TENDER [address] [place] [address] PCP - General Nurse Practitioner 10/27/24 Blanquita Hargrove RN [address] [place] [address] [place] [address] Specialty Group [facility] Hematology/Oncology 11/29/24 Kvng Perez MD [facility] [address] Physician Hematology/Oncology 11/29/24 Annel Alas LSW Sprayer Operator 01/08/25 Ricardo Alva, RN [facility] Hospice & Palliative Medicine 01/23/25 Kisha Craig APRN.OVEN DRIER TENDER [address] [facility] [address] Hospice & Palliative Medicine 01/23/25 documented as of this encounter
--- OUTSIDE RECORDS SUMMARY | 2025-02-06 13:00 | XMS_ITS | Encounter Summary ---
Author Organization [facility] Address [address] [place] [address] Care Team Providers Care Food Service Cashier Name Role Phone Brandi Alvarado MOTOR ROUTE CARRIER.CNC SET UP OPERATOR Primary Care Provider Blanquita Hargrove RN Unavailable [phone] Kvng Perez MD Unavailable [phone] Annel Alas Unavailable Unavailable Ricardo Alva RN Unavailable Unava ilable Kisha Craig MOTOR ROUTE CARRIER.CNC SET UP OPERATOR Unavailable + Source Comments In the event this information is protected by the Federal Confidentiality of Alcohol and Drug AbusePatient Records regulations: The Federal rules restrict any use of the information to criminally investigate or prosecute any alcohol or drug abuse patient.[facility] Reason for Visit * [place] Prior Authorization (Routine) - Authorized Specialty Diagnoses / Procedures Referred By Contac t Referred To Contact Diagnoses Malignant neoplasm of lower lobe of right lung (HCC) Procedures ETOPOSIDE 10 MG INJ CISPLATIN 10 MG INJECTION PALONOSETRON HCL FOSAPREPITANT INJECTION Kvng Perez MD [address] [place] [address] [place] [address] Phone: tel: fax: Hematology/Oncology [address] [place] [address] [place] [address] Phone: tel: fax: Referral ID Status Reason Start Date Expiration Date V isits Requested Visits Authorized [id number] Authorized 01/08/2025 06/13/2025 99 99 Encounter Details Date Type Department Care Team (Latest Contact Info) Description 02/06/2025 1:00 PM EDT Infusion Center Hematology/Oncology [address] [place] [address] [place] [address] Malignant neoplasm of lower lobe of right [...] is lower risk 9 11/15/2024 Data from: https://www.neighborhoodatlas.medicine.[facility].edu/. Last address used for calculation [address] 11/15/2024 Sex and Gender Information Value Date Recorded Sex Assigned at Not on file Legal Sex Male 8:04 AM EST Gender Identity Not on file Sexual Orientation Not on file documented as of this encounter Last Filed Vital Signs Vital Sign Reading Time Taken Comments Blood Pressure 118/73 02/06/2025 1:10 PM EDT Pulse 84 02/06/2025 1:10 PM EDT Temperature 36.7 C (98 F) 02/06/2025 1:10 PM EDT Respiratory Rate 16 02/06/2025 1:10 PM EDT Oxygen Saturation 98% 02/06/2025 1:10 PM EDT Inhaled Oxygen Concentration - - Weight - - Height - - Body Mass Index - - documented in this encounter Plan of Treatment Upcoming Encounters Date Type Department Care Team (Latest Contact Info) Description 02/19/2025 11:45 AM EDT Appointment Radiation Oncology [address] [place] [address] [place] [address] Lung 02/19/2025 11:45 AM EDT Nurse Visit Radiation Oncology [address] [place] [address] Mae, Nurse Radt [address] [place] [address] pulse monitoring 02/20/2025 10:30 AM EDT Office Visit Palliative Medicine [address] [place] [address] Kisha Craig, MOTOR ROUTE CARRIER.CNC SET UP OPERATOR [address] [place] [address] 4 week follow up 02/20/2025 11:45 AM EDT Appointment Radiation Oncology [address] [place] [address] Lung- Pall med 10:30 02/20/2025 11:45 AM EDT Nurse Visit Radiation Oncology [address] [place] [address] Mae, Nurse Radt [address] [place] [address] pulse monitoring 02/21/2025 8:00 AM EDT Appointment Radiation Oncology [address] [place] [address] Lung - 845 LAB, 9 MILLS, 930 CHEMO x6 HRS 02/21/2025 8:45 AM EDT Office Visit [facility] Laboratory [address] [place] [address] lab follow up and chemotx Cisplatin + IV MAG - PUT PATIENT BACK ON Wednesday02/21/2025 9:00 AM EDT Visit (SP) Office Hematology/Oncology [address] [place] [address] Kvng Perez MD [address] [place] [address] lab follow up and chemotx Cisplatin + IV MAG - PUT PATIENT BACK ON Wednesday02/21/2025 9:30 AM EDT [facility] Center Hematology/Oncology [address] [place] [address] Mae, Chair [address] [place] [address] lab follow up and chemotx Cisplatin + IV MAG - PUT PATIENT BACK ON Wednesday02/21/2025 11:45 AM EDT Nurse Visit Radiation Oncology [address] [place] [address] [place] [address] Mae, Nurse Radt [address] [place] [address] [place] [address] pulse monitoring 02/21/2025 12:00 PM EDT Office Visit Radiation Oncology [address] [place] [address] [place] [address] Ezra Moreno MD [address] [place] [address] [place] [address] Location: -ON TREATMENT REV 02/22/2025 11:45 AM EDT Appointment Radiation Oncology [address] [place] [address] [place] [address] Lung 02/22/2025 11:45 AM EDT Nurse Visit Radiation Oncology [address] [place] [address] [place] [address] Mae, Nurse Radt [address] [place] [address] [place] [address] pulse monitoring 05/28/2025 11:30 AM EST Office Visit Radiation Oncology [address] [place] [address] [place] [address] Ezra Moreno MD [address] [place] [address] [place] [address] 3-4 month final radiation follow up documented as of this encounter Visit Diagnoses Diagnosis Malignant neoplasm of lower lobe of right lung (HCC)- Primary documented in this encounter Administered Medications Inactive Administered Medications - up to 3 most recent administrations Medication Order MAR Action Action Date Dose Rate Site etoposide phosphate 94 mg in NaCl 0.9% 114.7 mL 94 mg (50 mg/m2 1.88 m2 Treatment Plan BSA from Recorded weight), INTRAVENOUS, Administer over 1 Hours, ONCE, 1 dose, On Wed02/06/25 at 1330, EXP:1530 02/06/25 Hazardous Chemotherapy Drug: Use appropriate PPE. Antineoplastic Irritant.Indications:Malignan t neoplasm of lower lobe of right lung (HCC) New Bag/Syringe/Bottle 02/06/2025 1:57 PM EDT 94 mg documented in this encounter Care Teams Food Service Cashier Relationship Specialty Start Date End Date Brandi Alvarado, MOTOR ROUTE CARRIER.CNC SET UP OPERATOR [address] [place] [address] PCP - General Nurse Practitioner 10/27/24 Blanquita Hargrove, RN [address] [place] [address] [place] [address] Specialty Boiling Tub Operator Hematology/Oncology 11/29/24 Kvng Perez MD [address] [place] [address] [place] [address] Physician Hematology/Oncology 11/29/24 Annel Alas LSW Rubber Down 01/08/25 Ricardo Alva RN Specialty Boiling Tub Operator Hospice & Palliative Medicine 01/23/25 Kisha Craig, MOTOR ROUTE CARRIER.CNC SET UP OPERATOR [address] [place] [address] [place] [id number] Hospice & Palliative Medicine 01/23/25 documented as of this encounter
--- OUTSIDE RECORDS SUMMARY | 2025-02-07 11:45 | XMS_ITS | Encounter Summary ---
Author Organization [facility] Address [address] [place] [address] Care Team Providers Care Talent Acquisition Associate Name Role Phone Brandi Alvarado ATHLETIC SHOE DESIGNER.DESK REPORTER Primary Care Provider Blanquita Hargrove RN Unavailable [phone] Kvng Peerz MD Unavailable [phone] Annel Alas Unavailable Unavailable Ricardo Alva RN Unavailable Unava ilable Kisha Craig ATHLETIC SHOE DESIGNER.DESK REPORTER Unavailable + Source Comments In the event this information is protected by the Federal Confidentiality of Alcohol and Drug AbusePatient Records regulations: The Federal rules restrict any use of the information to criminally investigate or prosecute any alcohol or drug abuse patient.[facility] Encounter Details Date Type Department Care Team (Late st Contact Info) Description 02/07/2025 11:45 AM EDT Nurse Visit Radiation Oncology [address] [facility] [address] Mae, Nurse Radt [address] [facility] [place] [address] Malignant neoplasm of lower lobe of [...] is lower risk 9 11/15/2024 Data from: https://www.neighborhoodatlas.medicine.[facility].edu/. Last address used for calculation [address] 11/15/2024 Sex and Gender Information Value Date Recorded Sex Assigned at Not on file Legal Sex Male 8:04 AM EST Gender Identity Not on file Sexual Orientation Not on file documented as of this encounter Progress Notes * Cassia Cantu RN - 02/07/2025 2:18 PM EDT Frantz is here for radiation therapy with continuous pulse oximetry. Pulse Oxygen Pre tx 69-77 97% Cone beam 72-81 96-97 % Post cb 72-80 95-97% Tx 73-82 94-97% Post tx 76-79 96 Patient tolerated treatment without concerns. Cassia Cantu RN documented in this encounter Plan of Treatment Upcoming Encounters Date Type Department Care Team (Latest Contact Info) Description 02/19/2025 11:45 AM EDT Appointment Radiation Oncology [address] [place] [address] Lung 02/19/2025 11:45 AM EDT Nurse Visit Radiation Oncology [address] [place] [address] Mae, Nurse Radt [address] [place] [place] [address] pulse monitoring 02/20/2025 10:30 AM EDT Office Visit Palliative Medicine [address] [place] [place] [address] Kisha Craig, ATHLETIC SHOE DESIGNER.DESK REPORTER [address] [place] [address] 4 week follow up 02/20/2025 11:45 AM EDT Appointment Radiation Oncology [address] [place] [place] [address] Lung- Pall med 10:30 02/20/2025 11:45 AM EDT Nurse Visit Radiation Oncology [address] [place] [address] Mae, Nurse Radt [address] [place] [place] [address] pulse monitoring 02/21/2025 8:00 AM EDT Appointment Radiation Oncology [address] [place] [place] [address] Lung - 845 LAB, 9 MILLS, 930 CHEMO x6 HRS 02/21/2025 8:45 AM EDT Office Visit [facility] Laboratory [address] [place] [address] lab follow up and chemotx Cisplatin + IV MAG - PUT PATIENT BACK ON Wednesday02/21/2025 9:00 AM EDT Visit (SP) Office Hematology/Oncology [address] [place] [place] [address] Kvng Perez MD [address] [place] [address] lab follow up and chemotx Cisplatin + IV MAG - PUT PATIENT BACK ON Wednesday02/21/2025 9:30 AM EDT [facility] Hematology/Oncology [address] [place] [place] [address] Mae, Chair [address] [place] [place] [address] lab follow up and chemotx Cisplatin + IV MAG - PUT PATIENT BACK ON Wednesday02/21/2025 11:45 AM EDT Nurse Visit Radiation Oncology [address] [place] [place] [address] Mae, Nurse Radt [address] [place] [place] [address] pulse monitoring 02/21/2025 12:00 PM EDT Office Visit Radiation Oncology [address] [place] [place] [address] Ezra Moreno MD [address] [place] [place] [address] Location: -ON TREATMENT REV 02/22/2025 11:45 AM EDT Appointment Radiation Oncology [address] [place] [place] [address] Lung 02/22/2025 11:45 AM EDT Nurse Visit Radiation Oncology [address] [place] [address] [place] [address] Mae, Nurse Radt [address] [place] [place] [address] pulse monitoring 05/28/2025 11:30 AM EST Office Visit Radiation Oncology [address] [place] [address] [place] [address] Ezra Moreno MD [address] [place] [place] [address] 3-4 month final radiation follow up documented as of this encounter Visit Diagnoses Diagnosis Malignant neoplasm of lower lobe of right lung (HCC)- Primary documented in this encounter Care Teams Talent Acquisition Associate Relationship Specialty Start Date End Date Brandi Alvarado APRN.DESK REPORTER [address] [place] [address] PCP - General Nurse Practitioner 10/27/24 Blanquita Hargrove RN [address] [place] [address] [place] [address] Specialty Safety And Security Officer Hematology/Oncology 11/29/24 Kvng Perez MD [address] [place] [address] [place] [address] Physician Hematology/Oncology 11/29/24 Annel Alas LSW Process Trainer 01/08/25 Ricardo Alva RN Specialty Safety And Security Officer Hospice & Palliative Medicine 01/23/25 Kisha Craig, ATHLETIC SHOE DESIGNER.DESK REPORTER [address] [place] [address] [place] [phone] Hospice & Palliative Medicine 01/23/25 documented as of this encounter
--- OUTSIDE RECORDS SUMMARY | 2025-02-07 12:00 | XMS_ITS | Encounter Summary ---
Author Organization [facility] Address [address] [place] [address] Care Team Providers Care Typing Office Worker Name Role Phone Brandi Alvarado RECREATION PROGRAM SPECIALIST.RIGHT OF WAY BUYER Primary Care Provider Blanquita Hargrove RN Unavailable [phone] Kvng Perez MD Unavailable [phone] Annel Alas Unavailable Unavailable Ricardo Alva RN Unavailable Unava ilable Kisha Craig RECREATION PROGRAM SPECIALIST.RIGHT OF WAY BUYER Unavailable + Source Comments In the event this information is protected by the Federal Confidentiality of Alcohol and Drug AbusePatient Records regulations: The Federal rules restrict any use of the information to criminally investigate or prosecute any alcohol or drug abuse patient.[facility] Reason for Visit * Reason Comments Radiotherapy On-treatment Visit Encounter Details Date Type Department Care Team (Late st Contact Info) Description 02/07/2025 12:00 PM EDT Office Visit Radiation Oncology [address] [place] [address] Ezra Moreno MD [address] [facility] [place] [address] Social History Tobacco Use Types Packs/Day [...] is lower risk 9 11/15/2024 Data from: https://www.neighborhoodatlas.medicine.[facility].edu/. Last address used for calculation [address] 11/15/2024 Sex and Gender Information Value Date Recorded Sex Assigned at Not on file Legal Sex Male 8:04 AM EST Gender Identity Not on file Sexual Orientation Not on file documented as of this encounter Last Filed Vital Signs Vital Sign Reading Time Taken Comments Blood Pressure 132/77 02/07/2025 12:19 PM EDT Pulse 82 02/07/2025 12:19 PM EDT Temperature 36.1 C (96.9 F) 02/07/2025 12:19 PM EDT Respiratory Rate 16 02/07/2025 12:19 PM EDT Oxygen Saturation 98% 02/07/2025 12:19 PM EDT Inhaled Oxygen Concentration - - Weight - - Height - - Body Mass Index - - documented in this encounter Plan of Treatment Upcoming Encounters Date Type Department Care Team (Latest Contact Info) Description 02/19/2025 11:45 AM EDT Appointment Radiation Oncology [address] [facility] [place] [address] Lung 02/19/2025 11:45 AM EDT Nurse Visit Radiation Oncology [address] [facility] [place] [address] Mae, Nurse Radt [address] [facility] [place] [address] pulse monitoring 02/20/2025 10:30 AM EDT Office Visit Palliative Medicine [address] [facility] [address] Kisha Craig, RECREATION PROGRAM SPECIALIST.RIGHT OF WAY BUYER [address] [place] [address] 4 week follow up 02/20/2025 11:45 AM EDT Appointment Radiation Oncology [address] [facility] [place] [address] Lung- Pall med 10:30 02/20/2025 11:45 AM EDT Nurse Visit Radiation Oncology [address] [facility] [place] [address] Mae, Nurse Radt [address] [facility] [place] [address] pulse monitoring 02/21/2025 8:00 AM EDT Appointment Radiation Oncology [address] [facility] [place] [address] Lung - 845 LAB, 9 MILLS, 930 CHEMO x6 HRS 02/21/2025 8:45 AM EDT Office Visit [facility] Laboratory [address] [facility] [place] [address] lab follow up and chemotx Cisplatin + IV MAG - PUT PATIENT BACK ON Wednesday02/21/2025 9:00 AM EDT Visit (SP) Office Hematology/Oncology [address] [facility] [place] [address] Kvng Perez MD [address] [facility] [place] [address] lab follow up and chemotx Cisplatin + IV MAG - PUT PATIENT BACK ON Wednesday02/21/2025 9:30 AM EDT [facility] Hematology/Oncology [address] [facility] [place] [address] Mae, Chair 7 [address] [facility] [place] [address] lab follow up and chemotx Cisplatin + IV MAG - PUT PATIENT BACK ON Wednesday02/21/2025 11:45 AM EDT Nurse Visit Radiation Oncology [address] [facility] [place] [address] Mae, Nurse Radt [address] [facility] [place] [address] pulse monitoring 02/21/2025 12:00 PM EDT Office Visit Radiation Oncology [address] [facility] [place] [address] Ezra Moreno MD [address] [facility] [place] [address] Location: -ON TREATMENT REV 02/22/2025 11:45 AM EDT Appointment Radiation Oncology [address] [facility] [place] [address] Lung 02/22/2025 11:45 AM EDT Nurse Visit Radiation Oncology [address] [facility] [place] [address] Mae, Nurse Radt [address] [facility] [place] [place] [address] pulse monitoring 05/28/2025 11:30 AM EST Office Visit Radiation Oncology [address] [place] [address] [place] [address] Ezra Moreno MD [address] [facility] [address] 3-4 month final radiation follow up documented as of this encounter Visit Diagnoses Not on filedocumented in this encounter Care Teams Typing Office Worker Relationship Specialty Start Date End Date Brandi Alvarado, RECREATION PROGRAM SPECIALIST.RIGHT OF WAY BUYER [address] [place] [address] PCP - General Nurse Practitioner 10/27/24 Blanquita Hargrove RN [address] [place] [address] [place] [address] Specialty Javascript Ui Developer Hematology/Oncology 11/29/24 Kvng Perez MD [address] [place] [address] [place] [address] Physician Hematology/Oncology 11/29/24 Annel Alas LSW Gold Beater 01/08/25 Ricardo Alva RN Specialty Javascript Ui Developer Hospice & Palliative Medicine 01/23/25 Kisha Craig, RECREATION PROGRAM SPECIALIST.RIGHT OF WAY BUYER [address] [place] [address] [place] [phone] Hospice & Palliative Medicine 01/23/25 documented as of this encounter
--- OUTSIDE RECORDS SUMMARY | 2025-02-07 13:00 | XMS_ITS | Encounter Summary ---
Author Organization [facility] Address [address] [place] [address] Care Team Providers Care Seaman Officer Name Role Phone Brandi Alvarado BELLY DANCER.MARKET ANALYSIS DIRECTOR Primary Care Provider Blanquita Hargrove RN Unavailable [phone] Kvng Perez MD Unavailable [phone] Annel Alas Unavailable Unavailable Ricardo Alva RN Unavailable Unava ilable Kisha Craig BELLY DANCER.MARKET ANALYSIS DIRECTOR Unavailable + Source Comments In the event this information is protected by the Federal Confidentiality of Alcohol and Drug AbusePatient Records regulations: The Federal rules restrict any use of the information to criminally investigate or prosecute any alcohol or drug abuse patient.[facility] Reason for Visit * [place] Prior Authorization (Routine) - Authorized Specialty Diagnoses / Procedures Referred By Contac t Referred To Contact Diagnoses Malignant neoplasm of lower lobe of right lung (HCC) Procedures ETOPOSIDE 10 MG INJ CISPLATIN 10 MG INJECTION PALONOSETRON HCL FOSAPREPITANT INJECTION Kvng Perez MD [address] [place] [address] [place] [address] Phone: tel: fax: Hematology/Oncology [address] [place] [address] Phone: tel: fax: Referral ID Status Reason Start Date Expiration Date V isits Requested Visits Authorized [id number] Authorized 01/08/2025 06/13/2025 99 99 Encounter Details Date Type Department Care Team (Latest Contact Info) Description 02/07/2025 1:00 PM EDT [facility] Center Hematology/Oncology [address] [place] [address] Malignant neoplasm of lower lobe of right [...] is lower risk 9 11/15/2024 Data from: https://www.neighborhoodatlas.medicine.[facility].edu/. Last address used for calculation [address] [...] 11:45 AM EDT Appointment Radiation Oncology [address] [place] [place] [address] Lung 02/19/2025 11:45 AM EDT Nurse Visit Radiation Oncology [address] [place] [address] Mae, Nurse Radt [address] [place] [address] pulse monitoring 02/20/2025 10:30 AM EDT Office Visit Palliative Medicine [facility] [place] [address] Kisha Craig, BELLY DANCER.MARKET ANALYSIS DIRECTOR [address] [place] [id number] 4 week follow up 02/20/2025 11:45 AM EDT Appointment Radiation Oncology [address] [place] [address] Lung- Pall med 10:30 02/20/2025 11:45 AM EDT Nurse Visit Radiation Oncology [address] [place] [address] Mae, Nurse Radt [address] [place] [address] pulse monitoring 02/21/2025 8:00 AM EDT Appointment Radiation Oncology [address] [place] [address] Lung - 845 LAB, 9 MILLS, 930 CHEMO x6 HRS 02/21/2025 8:45 AM EDT Office Visit [facility] Laboratory [address] [place] [address] lab follow up and chemotx Cisplatin + IV MAG - PUT PATIENT BACK ON Wednesday02/21/2025 9:00 AM EDT Visit (SP) Office Hematology/Oncology [address] [place] [address] Kvng Perez MD [address] [place] [address] lab follow up and chemotx Cisplatin + IV MAG - PUT PATIENT BACK ON Wednesday02/21/2025 9:30 AM EDT [facility] Center Hematology/Oncology [address] [place] [address] Mae, Chair [address] [place] [address] lab follow up and chemotx Cisplatin + IV MAG - PUT PATIENT BACK ON Wednesday02/21/2025 11:45 AM EDT Nurse Visit Radiation Oncology [address] [place] [address] Mae, Nurse Radt [address] [place] [address] pulse monitoring 02/21/2025 12:00 PM EDT Office Visit Radiation Oncology [address] [place] [address] [place] [address] Ezra Moreno MD [address] [place] [address] [place] [address] Location: -ON TREATMENT REV 02/22/2025 11:45 AM EDT Appointment Radiation Oncology [address] [place] [address] [place] [address] Lung 02/22/2025 11:45 AM EDT Nurse Visit Radiation Oncology [address] [place] [address] [place] [address] Mae, Nurse Radt [address] [place] [address] [place] [address] pulse monitoring 05/28/2025 11:30 AM EST Office Visit Radiation Oncology [address] [place] [address] [place] [address] Ezra Moreno MD [address] [place] [address] [place] [address] 3-4 month final radiation follow up documented [...] over 1 Hours, ONCE, 1 dose, On Wed02/07/25 at 1300, EXP: [id number] 02/09/25 Hazardous Chemotherapy Drug: Use appropriate PPE. Antineoplastic Irritant.Indications:Malignan t neoplasm of lower lobe of right lung (HCC) New Bag/Syringe/Bottle 02/07/2025 1:15 PM EDT 94 mg documented in this encounter Care Teams Seaman Officer Relationship Specialty Start Date End Date Brandi Alvarado APRN.MARKET ANALYSIS DIRECTOR [address] [place] [address] PCP - General Nurse Practitioner 10/27/24 Blanquita Hargrove, RN [address] [place] [address] [place] [address] Specialty Scientific Editor Hematology/Oncology 11/29/24 Kvng Perez MD [address] [place] [address] [place] [address] Physician Hematology/Oncology 11/29/24 Annel Alas LSW Risk Investigator 01/08/25 Ricardo Alva RN Specialty Scientific Editor Hospice & Palliative Medicine 01/23/25 Kisha Craig, BELLY DANCER.MARKET ANALYSIS DIRECTOR [address] [place] [address] [place] [phone] Hospice & Palliative Medicine 01/23/25 documented as of this encounter
--- OUTSIDE RECORDS SUMMARY | 2025-02-08 11:45 | XMS_ITS | Encounter Summary ---
Author Organization [facility] Address [address] [place] [address] Care Team Providers Care Customer Technical Services Manager Name Role Phone Brandi Alvarado WAFER PRODUCTION WORKER.STENCIL TYPIST Primary Care Provider Blanquita Hargrove RN Unavailable [phone] Kvng Perez MD Unavailable [phone] Annel Alas Unavailable Unavailable Ricardo Alva RN Unavailable Unava ilable Kisha Craig WAFER PRODUCTION WORKER.STENCIL TYPIST Unavailable + Source Comments In the event this information is protected by the Federal Confidentiality of Alcohol and Drug AbusePatient Records regulations: The Federal rules restrict any use of the information to criminally investigate or prosecute any alcohol or drug abuse patient.[facility] Reason for Visit * Reason Comments Pulse Monitoring Encounter Details Date Type Department Care Team (Late st Contact Info) Description 02/08/2025 11:45 AM EDT Nurse Visit Radiation Oncology [address] [facility] [place] [address] Mae, Nurse Radt [address] [place] [place] [address] Malignant neoplasm of lower lobe of [...] is lower risk 9 11/15/2024 Data from: https://www.neighborhoodatlas.medicine.[facility].edu/. Last address used for calculation [address] 11/15/2024 Sex and Gender Information Value Date Recorded Sex Assigned at Not on file Legal Sex Male 8:04 AM EST Gender Identity Not on file Sexual Orientation Not on file documented as of this encounter Progress Notes * Macy Oviedo, PRITI - 02/08/2025 1:44 PM EDT Pulse Monitored during radiation treatment. Pre Tx Pulse 95 Pulse Ox 97% [facility] Beam Pulse 94 Pulse Ox 97% Beam on Pulse 94-97 Pulse Ox 97% Post Tx Pulse 94 Pulse Ox 96% Macy Oviedo, RN documented in this encounter Plan of Treatment Upcoming Encounters Date Type Department Care Team (Latest Contact Info) Description 02/19/2025 11:45 AM EDT Appointment Radiation Oncology [address] [place] [address] Lung 02/19/2025 11:45 AM EDT Nurse Visit Radiation Oncology [address] [place] [address] Mae, Nurse Radt [address] [place] [address] pulse monitoring 02/20/2025 10:30 AM EDT Office Visit Palliative Medicine [address] [place] [address] Kisha Craig, WAFER PRODUCTION WORKER.STENCIL TYPIST [address] [place] [id number] 4 week follow up 02/20/2025 11:45 AM EDT Appointment Radiation Oncology [address] [place] [address] Lung- Pall med 10:30 02/20/2025 11:45 AM EDT Nurse Visit Radiation Oncology [address] [place] [address] Mae, Nurse Radt [address] [place] [address] pulse monitoring 02/21/2025 8:00 AM EDT Appointment Radiation Oncology [address] [place] [address] Lung - 845 LAB, 9 MILLS, 930 CHEMO x6 HRS 02/21/2025 8:45 AM EDT Office Visit [facility] Laboratory [address] [place] [address] lab follow up and chemotx Cisplatin + IV MAG - PUT PATIENT BACK ON Wednesday02/21/2025 9:00 AM EDT Visit (SP) Office Hematology/Oncology [address] [place] [address] Kvng Perez MD [address] [place] [address] lab follow up and chemotx Cisplatin + IV MAG - PUT PATIENT BACK ON Wednesday02/21/2025 9:30 AM EDT [facility] Center Hematology/Oncology [address] [place] [address] Mae, Chair [address] [place] [address] lab follow up and chemotx Cisplatin + IV MAG - PUT PATIENT BACK ON Wednesday02/21/2025 11:45 AM EDT Nurse Visit Radiation Oncology [address] [place] [address] Mae, Nurse Radt [address] [place] [address] pulse monitoring 02/21/2025 12:00 PM EDT Office Visit Radiation Oncology [address] [place] [address] Ezra Moreno MD [address] [place] [address] Location: -ON TREATMENT REV 02/22/2025 11:45 AM EDT Appointment Radiation Oncology [address] [place] [address] Lung 02/22/2025 11:45 AM EDT Nurse Visit Radiation Oncology [address] [place] [address] [place] [address] Mae, Nurse Radt [address] [place] [address] pulse monitoring 05/28/2025 11:30 AM EST Office Visit Radiation Oncology [address] [place] [address] [place] [address] Ezra Moreno MD [address] [place] [address] 3-4 month final radiation follow up documented as of this encounter Visit Diagnoses Diagnosis Malignant neoplasm of lower lobe of right lung (HCC)- Primary documented in this encounter Care Teams Customer Technical Services Manager Relationship Specialty Start Date End Date Brandi Alvarado, WAFER PRODUCTION WORKER.STENCIL TYPIST [address] [place] [address] PCP - General Nurse Practitioner 10/27/24 Blanquita Hargrove RN [address] [place] [address] [place], [place] [id number] Specialty Skidder Lever Operator Hematology/Oncology 11/29/24 Kvng Perez MD [address] [place] [address] [place] [address] Physician Hematology/Oncology 11/29/24 Annel Alas LSW Railroad Track Repair Supervisor 01/08/25 Ricardo Alva RN Specialty Skidder Lever Operator Hospice & Palliative Medicine 01/23/25 Kisha Craig, WAFER PRODUCTION WORKER.STENCIL TYPIST [address] [place] [address] [place] [phone] Hospice & Palliative Medicine 01/23/25 documented as of this encounter
--- OUTSIDE RECORDS SUMMARY | 2025-02-08 13:00 | XMS_ITS | Encounter Summary ---
Author Organization [facility] Address [address] [place] [address] Care Team Providers Care Avionics Integration Engineer Name Role Phone Brandi Alvarado RADIOISOTOPE TECHNOLOGIST.ORTHO/PROSTHETIC AIDE Primary Care Provider Blanquita Hargrove RN Unavailable [phone] Kvng Perez MD Unavailable [phone] Annel Alas Unavailable Unavailable Ricardo Alva RN Unavailable Unava ilable Kisha Craig RADIOISOTOPE TECHNOLOGIST.ORTHO/PROSTHETIC AIDE Unavailable + Source Comments In the event this information is protected by the Federal Confidentiality of Alcohol and Drug AbusePatient Records regulations: The Federal rules restrict any use of the information to criminally investigate or prosecute any alcohol or drug abuse patient.[facility] Reason for Visit * [place] Prior Authorization (Routine) - Authorized Specialty Diagnoses / Procedures Referred By Contac t Referred To Contact Diagnoses Malignant neoplasm of lower lobe of right lung (HCC) Procedures ETOPOSIDE 10 MG INJ CISPLATIN 10 MG INJECTION PALONOSETRON HCL FOSAPREPITANT INJECTION Kvng Perez MD [address] [place] [address] [place] [address] Phone: tel: fax: Hematology/Oncology [address] [place] [address] [place] [address] Phone: tel: fax: Referral ID Status Reason Start Date Expiration Date V isits Requested Visits Authorized [id number] Authorized 01/08/2025 06/13/2025 99 99 Encounter Details Date Type Department Care Team (Latest Contact Info) Description 02/08/2025 1:00 PM EDT Infusion Center Hematology/Oncology [address] [place] [address] [place] [address] Malignant neoplasm of lower lobe of right [...] is lower risk 9 11/15/2024 Data from: https://www.neighborhoodatlas.medicine.[facility].edu/. Last address used for calculation [address] 11/15/2024 Sex and Gender Information Value Date Recorded Sex Assigned at Not on file Legal Sex Male 8:04 AM EST Gender Identity Not on file Sexual Orientation Not on file documented as of this encounter Last Filed Vital Signs Vital Sign Reading Time Taken Comments Blood Pressure 137/74 02/08/2025 12:19 PM EDT Pulse 94 02/08/2025 12:19 PM EDT Temperature 36.6 C (97.9 F) 02/08/2025 12:19 PM EDT Respiratory Rate 16 02/08/2025 12:19 PM EDT Oxygen Saturation 97% 02/08/2025 12:19 PM EDT Inhaled Oxygen Concentration - - Weight - - Height - - Body Mass Index - - documented in this encounter Progress Notes * Maya Carney RN - 02/08/2025 12:36 PM EDT Patient continued/worsening hiccufs despite taking baclofen, an Rx for thorazine was sent to [facility]. Patient was notified and agrees. Maya Carney, RN documented in this encounter Plan of Treatment Upcoming Encounters Date Type Department Care Team (Latest Contact Info) Description 02/19/2025 11:45 AM EDT Appointment Radiation Oncology [address] [facility] [place] [address] Lung 02/19/2025 11:45 AM EDT Nurse Visit Radiation Oncology [address] [facility] [place] [address] Mae, Nurse Radt [address] [facility] [place] [address] pulse monitoring 02/20/2025 10:30 AM EDT Office Visit Palliative Medicine [address] [facility] [place] [address] Kisha Craig, RADIOISOTOPE TECHNOLOGIST.ORTHO/PROSTHETIC AIDE [address] [place] [phone] 4 week follow up 02/20/2025 11:45 AM EDT Appointment Radiation Oncology [address] [facility] [place] [address] Lung- Pall med 10:30 02/20/2025 11:45 AM EDT Nurse Visit Radiation Oncology [address] [facility] [place] [address] Mae, Nurse Radt [address] [facility] [place] [address] pulse monitoring 02/21/2025 8:00 AM EDT Appointment Radiation Oncology [address] [place] [address] Lung - 845 LAB, 9 MILLS, 930 CHEMO x6 HRS 02/21/2025 8:45 AM EDT Office Visit [facility] Laboratory [address] [place] [address] lab follow up and chemotx Cisplatin + IV MAG - PUT PATIENT BACK ON Wednesday02/21/2025 9:00 AM EDT Visit (SP) Office Hematology/Oncology [address] [facility] [place] [address] Kvng Perez MD [address] [facility] [place] [address] lab follow up and chemotx Cisplatin + IV MAG - PUT PATIENT BACK ON Wednesday02/21/2025 9:30 AM EDT [facility] Center Hematology/Oncology [address] [facility] [place] [address] [facility], Chair 7 [address] [facility] [place] [address] lab follow up and chemotx Cisplatin + IV MAG - PUT PATIENT BACK ON Wednesday02/21/2025 11:45 AM EDT Nurse Visit Radiation Oncology [address] [facility] [place] [address] Mae, Nurse Radt [address] [facility] [place] [address] pulse monitoring 02/21/2025 12:00 PM EDT Office Visit Radiation Oncology [address] [facility] [place] [address] Ezra Moreno MD [address] [facility] [place] [address] Location: SA-ON TREATMENT REV 02/22/2025 11:45 AM EDT Appointment Radiation Oncology [address] [facility] [place] [address] Lung 02/22/2025 11:45 AM EDT Nurse Visit Radiation Oncology [address] [facility] [place] [address] [facility], Nurse Radt [address] [facility] [place] [address] pulse monitoring 05/28/2025 11:30 AM EST Office Visit Radiation Oncology [address] [facility] [place] [address] Ezra Moreno MD [address] [facility] [place] [address] 3-4 month final radiation follow up documented [...] over 1 Hours, ONCE, 1 dose, On Rhona 02/08/25 at 1300, EXP: 0400 02/10/25 Hazardous Chemotherapy Drug: Use appropriate PPE. Antineoplastic Irritant.Indications:Malignan t neoplasm of lower lobe of right lung (HCC) New Bag/Syringe/Bottle 02/08/2025 1:50 PM EDT 94 mg ondansetron (PF) 8 mg injection (ZOFRAN) 8 mg, INTRAVENOUS, ONCE, 1 dose, On Rhona 02/08/25 at 1300Indications:Malignant neoplasm of lower lobe of right lung (HCC) Given 02/08/2025 12:44 PM EDT 8 mg documented in this encounter Care Teams Avionics Integration Engineer Relationship Specialty Start Date End Date Brandi Alvarado, RADIOISOTOPE TECHNOLOGIST.ORTHO/PROSTHETIC AIDE [address] [place] [address] PCP - General Nurse Practitioner 10/27/24 Blanquita Hargrove, RN [address] [place] [address] [place] [address] Specialty Horse Trainer Hematology/Oncology 11/29/24 Kvng Perez MD [address] [place] [address] [place] [address] Physician Hematology/Oncology 11/29/24 Annel Alas LSW Measurement Supervisor 01/08/25 Ricardo Alva, PRITI Specialty Horse Trainer Hospice & Palliative Medicine 01/23/25 Kisha Craig, RADIOISOTOPE TECHNOLOGIST.ORTHO/PROSTHETIC AIDE [address] [facility] [place] [phone] Hospice & Palliative Medicine 01/23/25 documented as of this encounter
--- OUTSIDE RECORDS SUMMARY | 2025-02-09 10:30 | XMS_ITS | Encounter Summary ---
Author Organization [facility] Address [address] [place] [address] Care Team Providers Care Assessment Expert Name Role Phone Brandi Alvarado TRANSMISSION DESIGN ENGINEER.DATA CONVERSION OPERATOR Primary Care Provider Blanquita Hargrove RN Unavailable [phone] Kvng Perez MD Unavailable [phone] Annel Alas Unavailable Unavailable Rciardo Alva RN Unavailable Unava ilable Kisha Craig TRANSMISSION DESIGN ENGINEER.DATA CONVERSION OPERATOR Unavailable + Source Comments In the event this information is protected by the Federal Confidentiality of Alcohol and Drug AbusePatient Records regulations: The Federal rules restrict any use of the information to criminally investigate or prosecute any alcohol or drug abuse patient.[facility] Reason for Visit * [place] Prior Authorization (Routine) - Authorized Specialty Diagnoses / Procedures Referred By Contac t Referred To Contact Diagnoses Malignant neoplasm of lower lobe of right lung (HCC) Procedures ETOPOSIDE 10 MG INJ CISPLATIN 10 MG INJECTION PALONOSETRON HCL FOSAPREPITANT INJECTION Kvng Perez MD [address] [place] [address] [place] [address] Phone: tel: fax: Hematology/Oncology [address] [place] [address] [place] [address] Phone: tel: fax: Referral ID Status Reason Start Date Expiration Date V isits Requested Visits Authorized [id number] Authorized 01/08/2025 06/13/2025 99 99 Encounter Details Date Type Department Care Team (Latest Contact Info) Description 02/09/2025 10:30 AM EDT Infusion Center Hematology/Oncology [address] [place] [address] [place] [address] Malignant neoplasm of lower lobe of right [...] is lower risk 9 11/15/2024 Data from: https://www.neighborhoodatlas.medicine.[facility].edu/. Last address used for calculation [address] 11/15/2024 Sex and Gender Information Value Date Recorded Sex Assigned at Not on file Legal Sex Male 8:04 AM EST Gender Identity Not on file Sexual Orientation Not on file documented as of this encounter Last Filed Vital Signs Vital Sign Reading Time Taken Comments Blood Pressure 94/60 02/09/2025 10:56 AM EDT Pulse 113 02/09/2025 10:56 AM EDT controlled a-fib with HR 70-113; pt to see cardiology this afternoon Temperature 36.4 C (97.5 F) 02/09/2025 10:56 AM EDT Respiratory Rate 18 02/09/2025 10:5 6 AM EDT Oxygen Saturation 98% 02/09/2025 10: 56 AM EDT Inhaled Oxygen Concentration - - Weight - - Height - - Body Mass Index - - documented in this encounter Plan of Treatment Upcoming Encounters Date Type Department Care Team (Latest Contact Info) Description 02/19/2025 11:45 AM EDT Appointment Radiation Oncology [address] [place] [address] Lung 02/19/2025 11:45 AM EDT Nurse Visit Radiation Oncology [address] [place] [address] Mae, Nurse Radt [address] [place] [address] pulse monitoring 02/20/2025 10:30 AM EDT Office Visit Palliative Medicine [address] [place] [address] Kisha Craig, TRANSMISSION DESIGN ENGINEER.DATA CONVERSION OPERATOR [address] [id number] 4 week follow up 02/20/2025 11:45 AM EDT Appointment Radiation Oncology [address] [place] [address] Lung- Pall med 10:30 02/20/2025 11:45 AM EDT Nurse Visit Radiation Oncology [address] [place] [address] Mae, Nurse Radt [address] [place] [address] pulse monitoring 02/21/2025 8:00 AM EDT Appointment Radiation Oncology [address] [place] [address] Lung - 845 LAB, 9 MILLS, 930 CHEMO x6 HRS 02/21/2025 8:45 AM EDT Office Visit [facility] [address] [place] [address] lab follow up and chemotx Cisplatin + IV MAG - PUT PATIENT BACK ON Wednesday02/21/2025 9:00 AM EDT Visit (SP) Office Hematology/Oncology [address] [place] [address] Kvng Perez MD [address] [place] [address] lab follow up and chemotx Cisplatin + IV MAG - PUT PATIENT BACK ON Wednesday02/21/2025 9:30 AM EDT Infusion Center Hematology/Oncology [address] [place] [address] Mae, Chair [address] [place] [address] lab follow up and chemotx Cisplatin + IV MAG - PUT PATIENT BACK ON Wednesday02/21/2025 11:45 AM EDT Nurse Visit Radiation Oncology [address] [place] [address] [place] [address] Mae, Nurse Radt [address] [place] [address] [place] [address] pulse monitoring 02/21/2025 12:00 PM EDT Office Visit Radiation Oncology [address] [place] [address] [place] [address] Ezra Moreno MD [address] [place] [address] [place] [address] Location: -ON TREATMENT REV 02/22/2025 11:45 AM EDT Appointment Radiation Oncology [address] [place] [address] [place] [address] Lung 02/22/2025 11:45 AM EDT Nurse Visit Radiation Oncology [address] [place] [address] [place] [address] Mae, Nurse Radt [address] [place] [address] [place] [address] pulse monitoring 05/28/2025 11:30 AM EST Office Visit Radiation Oncology [address] [place] [address] [place] [address] Ezra Moreno MD [address] [place] [address] [place] [address] 3-4 month final radiation follow up documented [...] over 1 Hours, ONCE, 1 dose, On Wed02/09/25 at 1100, EXP: 0500 02/10/25 Hazardous Chemotherapy Drug: Use appropriate PPE. Antineoplastic Irritant.Indications:Malignan t neoplasm of lower lobe of right lung (HCC) New Bag/Syringe/Bottle 02/09/2025 11:15 AM EDT 94 mg ondansetron (PF) 8 mg injection (ZOFRAN) 8 mg, INTRAVENOUS, ONCE, 1 dose, On Wed02/09/25 at 1100Indications:Malignant neoplasm of lower lobe of right lung (HCC) Given 02/09/2025 11:04 AM EDT 8 mg documented in this encounter Care Teams Assessment Expert Relationship Specialty Start Date End Date Brandi Alvarado, TRANSMISSION DESIGN ENGINEER.DATA CONVERSION OPERATOR [address] [place] [address] PCP - General Nurse Practitioner 10/27/24 Blanquita Hargrove RN [address] [place] [address] Specialty Food Service Substitute Hematology/Oncology 11/29/24 Kvng Perez MD [address] [place] [address] Physician Hematology/Oncology 11/29/24 Annel Alas LSW Remote Control Mirror Installer 01/08/25 Ricardo Alva RN Specialty Food Service Substitute Hospice & Palliative Medicine 01/23/25 Kisha Craig, TRANSMISSION DESIGN ENGINEER.DATA CONVERSION OPERATOR [address] [place] [address] Hospice & Palliative Medicine 01/23/25 documented as of this encounter
--- OUTSIDE RECORDS SUMMARY | 2025-02-09 11:45 | XMS_ITS | Encounter Summary ---
Author Organization [facility] Address [address] [place] [address] Care Team Providers Care President [employer] Name Role Phone Brandi Alvarado SEMICONDUCTOR ENGINEER.HORSE BREAKER Primary Care Provider Blanquita Hargrove RN Unavailable [phone] Kvng Perez MD Unavailable [phone] Annel Alas Unavailable Unavailable Ricardo Alva RN Unavailable Unava ilable Kisha Craig SEMICONDUCTOR ENGINEER.HORSE BREAKER Unavailable + Source Comments In the event this information is protected by the Federal Confidentiality of Alcohol and Drug AbusePatient Records regulations: The Federal rules restrict any use of the information to criminally investigate or prosecute any alcohol or drug abuse patient.[facility] Encounter Details Date Type Department Care Team (Late st Contact Info) Description 02/09/2025 11:45 AM EDT Nurse Visit Radiation Oncology [address] [place] [address] Mae, Nurse Radt [address] [place] [address] Malignant neoplasm of lower lobe of [...] is lower risk 9 11/15/2024 Data from: https://www.neighborhoodatlas.medicine.[facility]/. Last address used for calculation [address] 11/15/2024 Sex and Gender Information Value Date Recorded Sex Assigned at Not on file Legal Sex Male 8:04 AM EST Gender Identity Not on file Sexual Orientation Not on file documented as of this encounter Progress Notes * Cassia Cantu RN - 02/09/2025 2:42 PM EDT Frantz is here for radiation therapy with continuous pulse oximetry Pulse SpO2 Pretx 83-108 96-97% Cone beam 91-109 96-97% Post cb 91-114 97% Tx 82-112 97% Post tx 93-110 97% Patient tolerated treatment without concerns. Cassia Cantu RN documented in this encounter Plan of Treatment Upcoming Encounters Date Type Department Care Team (Latest Contact Info) Description 02/19/2025 11:45 AM EDT Appointment Radiation Oncology [address] [address] Lung 02/19/2025 11:45 AM EDT Nurse Visit Radiation Oncology [address] [place] [address] Mae, Nurse Radt [address] [place] [address] [place] [address] pulse monitoring 02/20/2025 10:30 AM EDT Office Visit Palliative Medicine [address] [place] [address] [place] [address] Kisha Craig, SEMICONDUCTOR ENGINEER.HORSE BREAKER [address] [place] [phone] 4 week follow up 02/20/2025 11:45 AM EDT Appointment Radiation Oncology [address] [place] [address] Lung- Pall med 10:30 02/20/2025 11:45 AM EDT Nurse Visit Radiation Oncology [address] [place] [address] Mae, Nurse Radt [address] [place] [address] pulse monitoring 02/21/2025 8:00 AM EDT Appointment Radiation Oncology [address] [place] [address] Lung - 845 LAB, 9 MILLS, 930 CHEMO x6 HRS 02/21/2025 8:45 AM EDT Office Visit [facility] [address] [place] [address] lab follow up and chemotx Cisplatin + IV MAG - PUT PATIENT BACK ON Wednesday02/21/2025 9:00 AM EDT Visit (SP) Office Hematology/Oncology [address] [place] [address] Kvng Perez MD [address] [place] [address] lab follow up and chemotx Cisplatin + IV MAG - PUT PATIENT BACK ON Wednesday02/21/2025 9:[address] [facility] Hematology/Oncology [address] [place] [address] Mae, Chair [address] [place] [address] lab follow up and chemotx Cisplatin + IV MAG - PUT PATIENT BACK ON Wednesday02/21/2025 11:45 AM EDT Nurse Visit Radiation Oncology [address] [place] [address] Mae, Nurse Radt [address] [place] [address] pulse monitoring 02/21/2025 12:00 PM EDT Office Visit Radiation Oncology [address] [place] [address] Ezra Moreno MD [address] [place] [address] Location: -ON TREATMENT REV 02/22/2025 11:45 AM EDT Appointment Radiation Oncology [address] [place] [address] Lung 02/22/2025 11:45 AM EDT Nurse Visit Radiation Oncology [address] [place] [address] [place] [address] Mae, Nurse Radt [address] [place] [address] pulse monitoring 05/28/2025 11:30 AM EST Office Visit Radiation Oncology [address] [place] [address] [place] [address] Ezra Moreno MD [address] [place] [address] 3-4 month final radiation follow up documented as of this encounter Visit Diagnoses Diagnosis Malignant neoplasm of lower lobe of right lung (HCC)- Primary documented in this encounter Care Teams President [employer] Relationship Specialty Start Date End Date Brandi Alvarado, SEMICONDUCTOR ENGINEER.HORSE BREAKER [address] [place] [address] PCP - General Nurse Practitioner 10/27/24 Blanquita Hargrove RN [address] [place] [address] Specialty Assistant Production Manager Hematology/Oncology 11/29/24 Kvng Perez MD [address] [place] [address] [place] [address] Physician Hematology/Oncology 11/29/24 Annel Alas LSW Devil Tender 01/08/25 Ricardo Alva RN Specialty Assistant Production Manager Hospice & Palliative Medicine 01/23/25 Kisha Craig, SEMICONDUCTOR ENGINEER.HORSE BREAKER [address] [place] [address] [place] [address] Hospice & Palliative Medicine 01/23/25 documented as of this encounter
--- OUTSIDE RECORDS SUMMARY | 2025-02-09 15:30 | XMS_ITS | Encounter Summary ---
Author Organization [facility] tem Address [facility]-[id number] [address] [place] [address] Care Team Providers Care Airplane Gas Tank Liner Assembler Name Role Phone Jenny, BrandiJasmin MCLEAN-SAFETY MANAGER Primary Care Provider [phone] Reason for Visit * Reason Comments Device Check Encounter Details Date Type Department Care Team (Latest Contact Info) Description 02/09/2025 3:30 PM EDT Clinical Support [facility] Physicians Cardiology [address] [place] [phone] [facility] Social History Tobacco Use Types Packs/Day Years Used Date Smoking Tobacco: Former Cigarettes Q uit: 01/04/2017 Smokeless Tobacco: Never Alcohol Use Standard Drinks/Week Comments Not Currently 0 (1 standard drink = 0.6 oz pur e alcohol) [facility] Utilities Answer Date Recorded In the past 12 months has [employer], gas, oil, or water [facility] threatened to shut off services in your [...] as of this encounter Progress Notes * Rahul Kaplan MD - 02/09/2025 3:30 PM EDT I agree with the findings in the scanned document. documented in this encounter Plan of Treatment Upcoming Encounters Date Type Department Care Team (Late st Contact Info) Description 05/30/2025 11:30 AM EST Clinical Support [facility] [address] [place] [phone] 05/30/2025 12:30 PM EST Office Visit [facility] [address] [place] [address] Bishop Milan, CHEMIST HELPER-SAFETY MANAGER [address] [phone] documented as of this encounter Goals Goal Patient Goal Type Associated Problems Recent Progress Patient-Stated? Author Discharge home General Yes Faye Chow, PRITI Note: Evaluation of progress towards goal: Pt plans to return home self care with support. documented as of this encounter Visit Diagnoses Diagnosis Pacemaker- Emmet- Primary Cardiac pacemaker in situ documented in this encounter Additional Health Concerns Assessment Noted Time PHQ-9 Depression Total Score: 0 11/10/19 11:28 AM EDT documented as of this encounter Care Teams Airplane Gas Tank Liner Assembler Relationship Specialty Start Date End Date Brandi Alvarado APRN-ABBEY [address] [place] [address] PCP - General Nurse Practitioner 11/08/24 documented as of this encounter
--- OUTSIDE RECORDS SUMMARY | 2025-02-09 16:00 | XMS_ITS | Encounter Summary ---
Author Organization [email or web address] Address [id number] [address] [place] [address] Care Team Providers Care Product Introduction Manager Name Role Phone JennyBrandi mascorro Janeth JARAMILLO Primary Care Provider [phone] Reason for Referral * Cardiology (Routine) - Pending Review Specialty Diagnoses / Procedures Referred By Beti montiel Referred To Contact Diagnoses AV block Pacemaker Procedures Device Interrogation Bishop Milan APRN-CNP [address] [place] [address] Phone: tel: fax: Referral ID Status Reason Start Date Expiration Date V isits Requested Visits Authorized [id number] Pending Review 02/09/2025 02/09/2026 1 1 Reason for Visit * Reason Comments Follow-up ov/pm d/c [facility] savannaib med changes ian w pt - aware MB office Device Check Encounter Details Date Type Department Care Team (Late st Contact Info) Description 02/09/2025 4:00 PM EDT Office Visit [facility] [address] [place] [phone] Bishop Milan APRN-CNP [address] [place], [place] [phone] AV block (Primary Dx); Pacemaker; Squamous cell carcinoma of lung, unspecified laterality ([facility]) Social History Tobacco Use Types Packs/Day Years Used Date Smoking Tobacco: Former Cigarettes Q uit: 01/04/2017 Smokeless Tobacco: Never Alcohol Use Standard Drinks/Week Comments Not Currently 0 (1 standard drink = 0.6 oz pur e alcohol) [facility] Utilities Answer Date Recorded In [...] Sign Reading Time Taken Comments Blood Pressure 96/58 02/09/2025 4:01 PM EDT Pulse 117 02/09/2025 4:01 PM EDT Temperature - - Respiratory Rate - - Oxygen Saturation - - Inhaled Oxygen Concentration - - Weight 75.3 kg (166 lb) 02/09/2025 4:01 PM EDT Height 172.7 cm (5' 8 ) 02/09/2025 4:01 PM EDT Body Mass Index 25.24 02/09/2025 4:01 PM EDT documented in this encounter Progress Notes * Bishop Milan APRN-SODA ROOM OPERATOR - 02/09/2025 4:00 PM EDT Frantz Roa II Date of visit: 02/09/2025 Date of : 1960 Age: 64 y.o. Patient Active Problem List Diagnosis AV block BPH with urinary obstruction Arthritis Gout Squamous cell lung cancer ([facility]) [facility]ync[facility] Allergies Allergen Reactions Emend [Aprepitant] Anaphylaxis Etoposide Anaphylaxis Polysorbate 80 Anaphylaxis Taxol [Paclitaxel] Anaphylaxis Bactrim [Sulfamethoxazole-Trimethoprim] Codeine diaphoresis Sulfamethoxazole Other (See Comments) and GI Disturbance Urinary retention Current Outpatient Medications Medication Sig Dispense Refill acetaminophen (TYLENOL EXTRA STRENGTH) 500 mg tablet Take 1 tablet (500 mg total) by mouth every 6 (six) hours as needed for pain. albuterol (PROVENTIL HFA;VENTOLIN HFA) 90 mcg/actuation inhaler Inhale 2 puffs every 4 (four) hoursas needed. albuterol (PROVENTIL,VENTOLIN) 2.5 mg /3 mL (0.083 %) nebulizer solution Inhale 3 mL (2.5 mg total)by nebulization every 6 (six) hours as needed. benzonatate (TESSALON PERLES) 200 mg capsule Take 1 capsule (200 mg total) by mouth 3 (three) timesa day as needed for cough. dextromethorphan-guaiFENesin (MUCINEX DM) 30-600 mg tablet extended release 12 hr Take 2 tablets bymouth in the morning and 2 tablets before [...] visit. Chief Complaint Patient presents with Follow-up ov/pm d/c [facility] afib med changes ian w pt - aware MB office Device Check History of Present Illness Frantz Roa II is here on follow-up after recent ER visits for tachycardia and shortness of breath. He has a history of paroxysmal atrial fibrillation, intermittent complete heart block, lung CA currently receiving radiation treatments managed by [facility] office. He [facility]ospitalized in October at [place] warranting pacemaker: [employer] dual-chamber. Patient has been to the ER both in December and again in January. Records show that in January, he had his device interrogation reporting PMT and adjustment of PVARP. . EKG does show what appears to be PMT. There reports of atrial fibrillation though do not see documentation that would suggest this. He is moderately anemic as well. Interrogation of his device today minimal atrially pacing RV pacing 100%. Oneepisode of atrial fibrillation of 36 minutes that occurred in early December though. Still monitoring regarding anticoagulation though he would be a high risk to initiate currently undergoing radiation. He has lost up to 40 lb in the past several months. His appetite is poor. He did have an echocardiogram completed at 5 allowance that shows a preserved EF, normal biatrial size, minimal valvulopathy. Patient is accompanied with his aunt today. He reports 1 more radiation treatments scheduled. I tentatively have him set to follow-up in May [place] office. Past Medical History: Diagnosis Date Arthritis Hypertension Lung cancer (CMS-HCC) Sleep apnea No data recorded No data recorded No data recorded Past Surgical History: Procedure Laterality Date EP Invasive DC PPM Left 11/09/2024 Performed by Robert Veloz MD at [facility] () SKIN BIOPSY basal cell carcinoma removed from left voodoo TONSILLECTOMY TURP / TRANSURETHRAL INCISION / DRAINAGE [...] Types: Cigarettes Quit date: 01/04/2017 Years since quittin.1 Smokeless tobacco: Never Vaping Use Vaping status: [...] Systems Review of Systems Constitutional: Positive for malaise/fatigue. HENT: Negative for nosebleeds. Cardiovascular: Negative for chest pain, leg swelling and palpitations. Vascular: Negative for asymmetric leg edema, claudication, lower extremity wounds or ulcers and varicose veins. Respiratory: Negative for cough, shortness of breath and wheezing. Hematologic/Lymphatic: Does not bruise/bleed easily. Musculoskeletal: Negative for joint pain, joint swelling, muscle cramps and muscle weakness. Gastrointestinal: Negative for heartburn, nausea and vomiting. Genitourinary: Negative for hematuria. Neurological: Negative for dizziness, headaches, light-headedness and weakness. Psychiatric/Behavioral: The patient is not nervous/anxious. CARDIOVASCULAR: Please [...] mood, memory and judgement. VITAL SIGNS: BP 96/58 Pulse 117 Ht 172.7 cm (5' 8 ) Wt 75.3 kg (166 lb) BMI 25.24 kg/m?? No orders of the defined types were placed in this encounter. There are no discontinued medications. IMPRESSIONS/PLAN 1. AV block - Device Interrogation; Future - POCT EKG 2. Pacemaker - Device Interrogation; Future 3. Squamous cell carcinoma of lung, unspecified laterality ([facility]) 1. Intermittent complete heart block s/p [employer] dual-chamber pacemaker 11/09/2024. Knownelevated atrial thresholds though stable trends. Device check with the appropriate RV pacing 100% underlying complete heart block. 2. Right lower lobe Ca. Going through radiation treatment. He has had a few bouts of pneumonia as well. Reported anaphylactic reaction to 1 of the agents for treatment. 3. Preserved EF with minimal valvulopathy on echo completed January 2025 at [facility] Continue remote monitoring. Appointment follow-up arranged in May. Patient seen while Dr. Reyna was immediately available in the office suite TODAYS ORDERS Orders Placed This Encounter Procedures Device Interrogation POCT EKG FOLLOW UP Return in about 4 months (around 06/11/2025) for Next scheduled follow up padma han. PCP: CLINT PRINCE Referring Physician: CLINT Prince [address] [place] [address] [place] [address] CLINT Chowdary 02/09/25 1649 documented in this encounter Plan of Treatment Upcoming Encounters Date Type Department Care Team (Late st Contact Info) Description 05/30/2025 11:30 AM EST Clinical Support [facility] [address] [place] [address] 05/30/2025 12:30 PM EST Office Visit [facility] [address] [place] [address] Bishop Milan APRN-CNP [address] [place] [address] documented as of this encounter Goals Goal Patient Goal Type Associated Problems Recent Progress Patient-Stated? Author Discharge home General Yes Faye Chow, PRITI Note: Evaluation of progress towards goal: Pt plans to return home self care with support. documented as of this encounter Procedures Procedure Name Priority Date/Time Associated Diagnosis Comments POCT EKG Routine 02/09/2025 4:02 PM EDT AV block documented in this encounter Results * POCT EKG (02/09/2025 4:02 PM EDT) us Bishop JARAMILLO ECG ORDERABLES Edited Result - Final MANUALLY TRANSCRIBED RESULTS * Device Interrogation (02/09/2025) Anatomical Region Laterality Modality Other us Bishop JARAMILLO CV CARDIAC SERVICES OR DERABLES Final Result documented in this encounter Visit Diagnoses Diagnosis AV block- Primary Unspecified atrioventricular block Pacemaker Cardiac pacemaker in situ Squamous cell carcinoma of lung, unspecified laterality ([facility]) documented in this encounter Additional Health Concerns Assessment Noted Time PHQ-9 Depression Total Score: 0 11/10/19 11:28 AM EDT documented as of this encounter Care Teams Product Introduction Manager Relationship Specialty Start Date End Date Brandi Alvarado APRN-CNP [address] [place] [address] PCP - General Nurse Practitioner 11/08/24 documented as of this encounter
--- OUTSIDE RECORDS SUMMARY | 2025-02-13 11:45 | XMS_ITS | Encounter Summary ---
Author Organization [facility] Address [address] [place] [address] Care Team Providers Care Agronomy Specialist Name Role Phone Brandi Alvarado SEAMLESS TUBE ROLLER.PHYSICAL MEDICINE SPECIALIST Primary Care Provider Blanquita Hargrove RN Unavailable [phone] Kvng Perez MD Unavailable [phone] Annel Alas Unavailable Unavailable Ricardo Alva RN Unavailable Unava ilable Kisha Craig SEAMLESS TUBE ROLLER.PHYSICAL MEDICINE SPECIALIST Unavailable + Source Comments In the event this information is protected by the Federal Confidentiality of Alcohol and Drug AbusePatient Records regulations: The Federal rules restrict any use of the information to criminally investigate or prosecute any alcohol or drug abuse patient.[facility] Reason for Visit * Reason Comments Pulse Monitoring Encounter Details Date Type Department Care Team (Late st Contact Info) Description 02/13/2025 11:45 AM EDT Nurse Visit Radiation Oncology [address] [facility] [address] Mae, Nurse Radt [address] [place] [place] [address] Malignant neoplasm of lower lobe of right lung (HCC) (Primary Dx); Dehydration Social History Tobacco Use Types Packs/Day Years [...] 9 11/15/2024 Data from: https://www.neighborhoodatlas.medicine.[facility]/. Last address used for calculation [address] 11/15/2024 Sex and Gender Information Value Date Recorded Sex Assigned at Not on file Legal Sex Male 8:04 AM EST Gender Identity Not on file Sexual Orientation Not on file documented as of this encounter Last Filed Vital Signs Vital Sign Reading Time Taken Comments Blood Pressure 91/61 02/13/2025 12:47 PM EDT Pulse 123 02/13/2025 12:47 PM EDT Temperature - - Respiratory Rate 18 02/13/2025 12:47 PM EDT Oxygen Saturation 98% 02/13/2025 12:47 PM EDT Inhaled Oxygen Concentration - - Weight - - Height - - Body Mass Index - - documented in this encounter Progress Notes * Macy Oviedo, PRITI - 02/13/2025 12:47 PM EDT Pt monitored for radiation treatment as ordered. Pre Tx Resting Pulse 119-123, Pulse O 98% BP 91/61. Pt denies feeling his heart is racing, but does report that he has been weak and tired over the weekend. Pt feels he may be dehydrated even though he is trying to push fluids. Pt was discussed with Dr Moreno who gave instruction to proceed with Radiation and administor IV Hydration 1 Liter today ifpt is willing. Pre Tx Pluse 119-123 Pulse ox 98% BP 91/61 [facility] Beam Pulse 119 Pulse Ox 98% Beam on Pulse 119 Pulse Ox 96% Post Tx Pulse 118 Pulse Ox 96% Macy Oviedo RN documented in this encounter Plan of Treatment Upcoming Encounters Date Type Department Care Team (Latest Contact Info) Description 02/19/2025 11:45 AM EDT Appointment Radiation Oncology [address] [place] [address] Lung 02/19/2025 11:45 AM EDT Nurse Visit Radiation Oncology [address] [place] [address] Mae, Nurse Radt [address] [place] [address] pulse monitoring 02/20/2025 10:30 AM EDT Office Visit Palliative Medicine [address] [place] [address] Kisha rCaig, SEAMLESS TUBE ROLLER.PHYSICAL MEDICINE SPECIALIST [address] [place] [address] 4 week follow up 02/20/2025 11:45 AM EDT Appointment Radiation Oncology [address] [place] [address] Lung- Pall med 10:30 02/20/2025 11:45 AM EDT Nurse Visit Radiation Oncology [address] [place] [place] [address] Mae, Nurse Radt [address] [facility] [place] [address] pulse monitoring 02/21/2025 8:00 AM EDT Appointment Radiation Oncology [address] [place] [address] Lung - 845 LAB, 9 MILLS, 930 CHEMO x6 HRS 02/21/2025 8:45 AM EDT Office Visit [facility] [address] [place] [address] lab follow up and chemotx Cisplatin + IV MAG - PUT PATIENT BACK ON Wednesday02/21/2025 9:00 AM EDT Visit (SP) Office Hematology/Oncology [address] [place] [address] Kvng Perez MD [address] [place] [address] lab follow up and chemotx Cisplatin + IV MAG - PUT PATIENT BACK ON Wednesday02/21/2025 9:30 AM EDT Infusion Center Hematology/Oncology [address] [place] [place] [address] Mae, Chair [address] [place] [address] [place] [address] lab follow up and chemotx Cisplatin + IV MAG - PUT PATIENT BACK ON Wednesday02/21/2025 11:45 AM EDT Nurse Visit Radiation Oncology [address] [place] [place] [address] [place], Nurse Radt [address] [place] [address] pulse monitoring 02/21/2025 12:00 PM EDT Office Visit Radiation Oncology [address] [place] [address] [place] [address] Ezra Moreno MD [address] [place] [place] [address] Location: SA-ON TREATMENT REV 02/22/2025 11:45 AM EDT Appointment Radiation Oncology [address] [place] [address] [place] [address] Lung 02/22/2025 11:45 AM EDT Nurse Visit Radiation Oncology [address] [place] [address] [place] [address] Mae, Nurse Radt [address] [place] [address] [place] [address] pulse monitoring 05/28/2025 11:30 AM EST Office Visit Radiation Oncology [address] [place] [address] [place] [address] Ezra Moreno MD [address] [place] [place] [address] 3-4 month final radiation follow up documented as of this encounter Visit Diagnoses Diagnosis Malignant neoplasm of lower lobe of right lung (HCC)- Primary Dehydration documented in this encounter Care Teams Agronomy Specialist Relationship Specialty Start Date End Date Brandi Alvarado APRN.PHYSICAL MEDICINE SPECIALIST [address] [place] [address] PCP - General Nurse Practitioner 10/27/24 Blanquita Hargrove, RN [address] [place] [address] [place] [address] Specialty Anesthesiologist Attending Hematology/Oncology 11/29/24 Kvng Perez MD [address] [place] [address] [place] [address] Physician Hematology/Oncology 11/29/24 Annel Alas LSW Communications Consultant 01/08/25 Ricardo Alva RN Specialty Anesthesiologist Attending Hospice & Palliative Medicine 01/23/25 Kisha Craig, VINAY.PHYSICAL MEDICINE SPECIALIST [address] [place] [address] [place] [id number] Hospice & Palliative Medicine 01/23/25 documented as of this encounter
--- OUTSIDE RECORDS SUMMARY | 2025-02-13 13:00 | XMS_ITS | Encounter Summary ---
Author Organization [facility] Address [address] [place] [address] Care Team Providers Care Supervisor Fur Dressing Name Role Phone Brandi Alvarado SHERIFF SERGEANT.HOGSHEAD INSPECTOR Primary Care Provider Blanquita Hargrove RN Unavailable [phone] Kvng Perez MD Unavailable [phone] Annel Alas Unavailable Unavailable Ricardo Alva RN Unavailable Unava ilable Kisha Craig SHERIFF SERGEANT.HOGSHEAD INSPECTOR Unavailable + Source Comments In the event this information is protected by the Federal Confidentiality of Alcohol and Drug AbusePatient Records regulations: The Federal rules restrict any use of the information to criminally investigate or prosecute any alcohol or drug abuse patient.[facility] Encounter Details Date Type Department Care Team (Latest Contact Info) Description 02/13/2025 1:00 PM EDT Infusion Center Hematology/Oncology [address] [place] [address] [place] [address] Dehydration (Primary Dx) Social History Tobacco Use Types [...] is lower risk 9 11/15/2024 Data from: https://www.neighborhoodatlas.medicine.[facility].edu/. Last address used for calculation [...] 02/19/2025 11:45 AM EDT Appointment Radiation Oncology [address] [place] [address] [place] [address] Lung 02/19/2025 11:45 AM EDT Nurse Visit Radiation Oncology [address] [place] [address] [place] [address] Mae, Nurse Radt [address] [place] [address] [place] [address] pulse monitoring 02/20/2025 10:30 AM EDT Office Visit Palliative Medicine [address] [place] [address] [place] [address] Kisha Craig, SHERIFF SERGEANT.HOGSHEAD INSPECTOR [address] [id number] 4 week follow up 02/20/2025 11:45 AM EDT Appointment Radiation Oncology [address] [place] [address] [place] [address] Lung- Pall med 10:30 02/20/2025 11:45 AM EDT Nurse Visit Radiation Oncology [address] [place] [address] [place] [address] Mae, Nurse Radt [address] [place] [address] [place] [address] pulse monitoring 02/21/2025 8:00 AM EDT Appointment Radiation Oncology [address] [place] [address] [place] [address] Lung - 845 LAB, 9 MILLS, 930 CHEMO x6 HRS 02/21/2025 8:45 AM EDT Office Visit [facility] [address] [place] [address] lab follow up and chemotx Cisplatin + IV MAG - PUT PATIENT BACK ON Wednesday02/21/2025 9:00 AM EDT Visit (SP) Office Hematology/Oncology [address] [place] [address] Kvng Perez MD [address] [place] [address] lab follow up and chemotx Cisplatin + IV MAG - PUT PATIENT BACK ON Wednesday02/21/2025 9:30 AM EDT [facility] Hematology/Oncology [address] [place] [address] Mae, Chair [address] [place] [address] lab follow up and chemotx Cisplatin + IV MAG - PUT PATIENT BACK ON Wednesday02/21/2025 11:45 AM EDT Nurse Visit Radiation Oncology [address] [place] [address] Mae, Nurse Radt [address] [place] [address] pulse monitoring 02/21/2025 12:00 PM EDT Office Visit Radiation Oncology [address] [place] [address] Ezra Moreno MD [address] [place] [address] Location: SA-ON TREATMENT REV 02/22/2025 11:45 AM EDT Appointment Radiation Oncology [address] [place] [address] Lung 02/22/2025 11:45 AM EDT Nurse Visit Radiation Oncology [address] [place] [address] Mae, Nurse Radt [address] [place] [address] pulse monitoring 05/28/2025 11:30 AM EST Office Visit Radiation Oncology [facility] [address] [facility] [place] [address] Ezra Moreno MD [address] [place] [address] [place] [address] 3-4 month final radiation follow up documented as of this encounter Visit Diagnoses Diagnosis Dehydration- Primary documented in this encounter Administered Medications Inactive Administered Medications - up to 3 most recent administrations Medication Order MAR Action Action Date Dose Rate Site NaCl 0.9% iv bolus 1,000 mL 1,000 mL, INTRAVENOUS, at 999 mL/hr, Administer over 1 Hours, ONCE, 1 dose, On Wed02/13/25 at 1330Indications:Dehydra tion New Bag/Syringe/Bottle 02/13/2025 1:15 PM EDT 1,000 mL 999 mL/hr documented in this encounter Care Teams Supervisor Fur Dressing Relationship Specialty Start Date End Date Brandi Alvarado, SHERIFF SERGEANT.HOGSHEAD INSPECTOR [address] [place] [address] PCP - General Nurse Practitioner 10/27/24 Blanquita Hargrove, PRITI [address] [place] [address] [place] [address] Specialty Repairer Wood Furniture Hematology/Oncology 11/29/24 Kvng Perez MD [address] [place] [address] [place] [address] Physician Hematology/Oncology 11/29/24 Annel Alas LSW Feather Cutting Machine Feeder 01/08/25 Ricardo Alva RN Specialty Repairer Wood Furniture Hospice & Palliative Medicine 01/23/25 Kisha [place], SHERIFF SERGEANT.HOGSHEAD INSPECTOR [address] [place] [address] [place] [id number] Hospice & Palliative Medicine 01/23/25 documented as of this encounter
--- OUTSIDE RECORDS SUMMARY | 2025-02-14 09:30 | XMS_ITS | Encounter Summary ---
Author Organization [facility] Address [address] [place] [address] Care Team Providers Care Wild Animal Caretaker Name Role Phone Brandi Alvarado STAVE JOINTER.MANUFACTURING INTERN Primary Care Provider Blanquita Hargrove RN Unavailable [phone] Kvng Perez MD Unavailable [phone] Annel Alas Unavailable Unavailable Ricardo Alva RN Unavailable Unava ilable Kisha Craig STAVE JOINTER.MANUFACTURING INTERN Unavailable + Source Comments In the event this information is protected by the Federal Confidentiality of Alcohol and Drug AbusePatient Records regulations: The Federal rules restrict any use of the information to criminally investigate or prosecute any alcohol or drug abuse patient.[facility] Encounter Details Date Type Department Care Team (Late st Contact Info) Description 02/14/2025 9:30 AM EDT Office Visit Radiation Oncology [facility] [place] [address] Ezra Moreno MD [address] [place] [address] [place] [address] Malignant neoplasm of lower lobe of [...] is lower risk 9 11/15/2024 Data from: https://www.neighborhoodatlas.[facility].edu/. Last address used for calculation [address] 11/15/2024 Sex and Gender Information Value Date Recorded Sex Assigned at Not on file Legal Sex Male 8:04 AM EST Gender Identity Not on file Sexual Orientation Not on file documented as of this encounter Last Filed Vital Signs Vital Sign Reading Time Taken Comments Blood Pressure 105/66 02/14/2025 10:07 AM EDT Pulse 117 02/14/2025 10:07 AM EDT Temperature 35.9 C (96.6 F) 02/14/2025 10:07 AM EDT Respiratory Rate 18 02/14/2025 10:07 AM EDT Oxygen Saturation 98% 02/14/2025 10:07 AM EDT Inhaled Oxygen Concentration - - Weight 72.3 kg (159 lb 6.3 oz) 02/14/2025 10:07 AM EDT Height - - Body Mass Index 24.58 02/05/2025 9:19 AM EDT documented in this encounter Plan of Treatment Upcoming Encounters Date Type Department Care Team (Latest Contact Info) Description 02/19/2025 11:45 AM EDT Appointment Radiation Oncology [address] [facility] [place] [address] Lung 02/19/2025 11:45 AM EDT Nurse Visit Radiation Oncology [address] [place] [address] Mae, Nurse Radt [address] [facility] [place] [address] pulse monitoring 02/20/2025 10:30 AM EDT Office Visit Palliative Medicine [address] [facility] [place] [address] Kisha Craig, STAVE JOINTER.MANUFACTURING INTERN [address] [place] [id number] 4 week follow up 02/20/2025 11:45 AM EDT Appointment Radiation Oncology [address] [facility] [place] [address] Lung- Pall med 10:30 02/20/2025 11:45 AM EDT Nurse Visit Radiation Oncology [address] [facility] [place] [address] Mae, Nurse Radt [address] [facility] [place] [address] pulse monitoring 02/21/2025 8:00 AM EDT Appointment Radiation Oncology [address] [facility] [place] [address] Lung - 845 LAB, 9 MILLS, 930 CHEMO x6 HRS 02/21/2025 8:45 AM EDT Office Visit [facility] [address] [facility] [place] [address] lab follow up and chemotx Cisplatin + IV MAG - PUT PATIENT BACK ON Wednesday02/21/2025 9:00 AM EDT Visit (SP) Office Hematology/Oncology [address] [facility] [place] [address] Kvng Perez MD [address] [facility] [place] [address] lab follow up and chemotx Cisplatin + IV MAG - PUT PATIENT BACK ON Wednesday02/21/2025 9:30 AM EDT [facility] Hematology/Oncology [address] [facility] [place] [address] Mae, Chair 7 [address] [facility] [place] [address] lab follow up and chemotx Cisplatin + IV MAG - PUT PATIENT BACK ON Wednesday02/21/2025 11:45 AM EDT Nurse Visit Radiation Oncology [address] [facility] [place] [address] Mae, Nurse Radt [address] [facility] [place] [address] pulse monitoring 02/21/2025 12:00 PM EDT Office Visit Radiation Oncology [address] [facility] [place] [address] Ezra Moreno MD [address] [place] [address] [place] [address] Location: -ON TREATMENT REV 02/22/2025 11:45 AM EDT Appointment Radiation Oncology [address] [facility] [place] [address] Lung 02/22/2025 11:45 AM EDT Nurse Visit Radiation Oncology [address] [place] [address] [place] [address] Mae, Nurse Radt [address] [facility] [place] [address] pulse monitoring 05/28/2025 11:30 AM EST Office Visit Radiation Oncology [facility] [place] [address] Ezra Moreno MD [address] [place] [address] [place] [address] 3-4 month final radiation follow up documented as of this encounter Visit Diagnoses Diagnosis Malignant neoplasm of lower lobe of right lung (HCC)- Primary documented in this encounter Care Teams Wild Animal Caretaker Relationship Specialty Start Date End Date Brandi Alvarado APRN.MANUFACTURING INTERN [address] [place] [address] PCP - General Nurse Practitioner 10/27/24 Blanquita Hargrove RN [address] [place] [address] [place] [address] Specialty Concert Or Lecture Hall Manager Hematology/Oncology 11/29/24 Kvng Perez MD [address] [place] [address] [place] [address] Physician Hematology/Oncology 11/29/24 Annel Alas LSW Complex Director 01/08/25 Fleckenstein, Ricardo A, RN Specialty Concert Or Lecture Hall Manager Hospice & Palliative Medicine 01/23/25 Kisha Craig APRN.MANUFACTURING INTERN [address] [place] [address] [place] [address] Hospice & Palliative Medicine 01/23/25 documented as of this encounter
--- OUTSIDE RECORDS SUMMARY | 2025-02-14 09:30 | XMS_ITS | Encounter Summary ---
Author Organization [facility] Address [address] [place] [address] Care Team Providers Care Pole Truck Driver Name Role Phone Brandi Alvarado FLIGHT ENGINEER.STUDIO OPERATIONS MANAGER Primary Care Provider Blanquita Hargrove RN Unavailable [phone] Kvng Perez MD Unavailable [phone] Annel Alas Unavailable Unavailable Ricardo Alva RN Unavailable Unava ilable Kisha Craig FLIGHT ENGINEER.STUDIO OPERATIONS MANAGER Unavailable + Source Comments In the event this information is protected by the Federal Confidentiality of Alcohol and Drug AbusePatient Records regulations: The Federal rules restrict any use of the information to criminally investigate or prosecute any alcohol or drug abuse patient.[facility] Encounter Details Date Type Department Care Team (Late st Contact Info) Description 02/14/2025 9:30 AM EDT Nurse Visit Radiation Oncology [address] [facility] [place] [address] Mae, Nurse Radt [address] [facility] [place] [address] Malignant neoplasm of lower lobe of [...] is lower risk 9 11/15/2024 Data from: https://www.neighborhoodatlas.medicine.[facility]/. Last address used for calculation [address] 11/15/2024 Sex and Gender Information Value Date Recorded Sex Assigned at Not on file Legal Sex Male 8:04 AM EST Gender Identity Not on file Sexual Orientation Not on file documented as of this encounter Progress Notes * Cassia Cantu RN - 02/14/2025 9:45 AM EDT Frantz is here for radiation therapy with continuous pulse oximetry. Pulse SpO2 Pretx 110-113 97-100% [facility]one beam 111-113 88-99 % Nursing in the treatment room to assess patient and pulse oximeter. Patient denies concerns. Pulse oximeter in place. Patient advised to take easy deep breaths. SpO2 recovered to 95% Post tx 114-118 96-98% Dr. Moreno notified of pulse >115. Dr. Moreno advised to increase pulse parameters from 70-115 to 70-125. Treatment continued. Tx 109-114 94-99% Post tx 109-112 96% Patient tolerated treatment without concerns. Cassia Cantu RN documented in this encounter Plan of Treatment Upcoming Encounters Date Type Department Care Team (Latest Contact Info) Description 02/19/2025 11:45 AM EDT Appointment Radiation Oncology [address] [facility] [place] [address] Lung 02/19/2025 11:45 AM EDT Nurse Visit Radiation Oncology [address] [facility] [place] [address] Mae, Nurse Radt [address] [facility] [place] [address] pulse monitoring 02/20/2025 10:30 AM EDT Office Visit Palliative Medicine [address] [facility] [place] [address] Kisha Craig, FLIGHT ENGINEER.STUDIO OPERATIONS MANAGER [address] [place] [address] 4 week follow up 02/20/2025 11:45 AM EDT Appointment Radiation Oncology [address] [facility] [place] [address] Lung- Pall med 10:30 02/20/2025 11:45 AM EDT Nurse Visit Radiation Oncology [address] [facility] [place] [address] Mae, Nurse Radt [address] [facility] [place] [address] pulse monitoring 02/21/2025 8:00 AM EDT Appointment Radiation Oncology [address] [facility] [place] [address] Lung - 845 LAB, 9 MILLS, 930 CHEMO x6 HRS 02/21/2025 8:45 AM EDT Office Visit [facility] [address] [facility] [place] [address] lab follow up and chemotx Cisplatin + IV MAG - PUT PATIENT BACK ON Wednesday02/21/2025 9:00 AM EDT Visit (SP) Office Hematology/Oncology [address] [facility] [place] [address] Kvng Perez MD [address] [facility] [place] [address] lab follow up and chemotx Cisplatin + IV MAG - PUT PATIENT BACK ON Wednesday02/21/2025 9:30 AM EDT [facility] Hematology/Oncology [address] [facility] [place] [address] Mae, Chair 7 [address] [facility] [place] [address] lab follow up and chemotx Cisplatin + IV MAG - PUT PATIENT BACK ON Wednesday02/21/2025 11:45 AM EDT Nurse Visit Radiation Oncology [address] [facility] [place] [address] Mae, Nurse Radt [address] [place] [address] pulse monitoring 02/21/2025 12:00 PM EDT Office Visit Radiation Oncology [address] [facility] [place] [address] Ezra Moreno MD [address] [facility] [place] [address] Location: -ON TREATMENT REV 02/22/2025 11:45 AM EDT Appointment Radiation Oncology [address] [place] [address] Lung 02/22/2025 11:45 AM EDT Nurse Visit Radiation Oncology [address] [place] [address] Mae, Nurse Radt [address] [facility] [place] [address] pulse monitoring 05/28/2025 11:30 AM EST Office Visit Radiation Oncology [address] [place] [address] Ezra Moreno MD [address] [facility] [place] [address] 3-4 month final radiation follow up documented as of this encounter Visit Diagnoses Diagnosis Malignant neoplasm of lower lobe of right lung (HCC)- Primary documented in this encounter Care Teams Pole Truck Driver Relationship Specialty Start Date End Date Brandi Alvarado, FLIGHT ENGINEER.STUDIO OPERATIONS MANAGER [address] [place] [address] PCP - General Nurse Practitioner 10/27/24 Blanquita Hargrove RN [address] [place] [address] Specialty Rehabilitation Attendant Hematology/Oncology 11/29/24 Kvng Perez MD [address] [facility] [place] [address] Physician Hematology/Oncology 11/29/24 Annel Alas LSW Ophthalmic Technologist 01/08/25 Ricardo Alva, RN Specialty Rehabilitation Attendant Hospice & Palliative Medicine 01/23/25 Kisha Craig APRN.STUDIO OPERATIONS MANAGER [address] [place] [address] [place] [id number] Hospice & Palliative Medicine 01/23/25 documented as of this encounter
--- OUTSIDE RECORDS SUMMARY | 2025-02-14 10:00 | XMS_ITS | Encounter Summary ---
Author Organization [facility] Address [address] [place] [address] Care Team Providers Care Cartographic Technician Name Role Phone Brandi Alvarado AUTO CLEANER.YOUTH AGENT Primary Care Provider Blanquita Hargrove RN Unavailable [phone] Kvng Perez MD Unavailable [phone] Annel Alas Unavailable Unavailable Ricardo Alva RN Unavailable Unava ilable Kisha Craig AUTO CLEANER.YOUTH AGENT Unavailable + Source Comments In the event this information is protected by the Federal Confidentiality of Alcohol and Drug AbusePatient Records regulations: The Federal rules restrict any use of the information to criminally investigate or prosecute any alcohol or drug abuse patient.[facility] Reason for Visit * Reason Comments Lung Cancer Treatment visit Encounter Details Date Type Department Care Team (Latest Contact Info) Description 02/14/2025 10:00 AM EDT Visit (SP) Office Hematology/Oncology [address] [place], [place] [address], [place] [address] Tawny Vega APRN.[address] [place] [address] Malignant neoplasm of lower lobe of right lung (HCC) (Primary Dx); Encounter for antineoplastic chemotherapy; Chemotherapy-induced fatigue; Weakness; Anemia due to antineoplastic chemotherapy; Protein-calorie malnutrition, unspecified severity (HCC) Social History Tobacco Use Types Packs/Day Years [...] is lower risk 9 11/15/2024 Data from: https://www.neighborhoodatlas.medicine.[facility].edu/. Last address used for calculation [address] 11/15/2024 Sex and Gender Information Value Date Recorded Sex Assigned at Not on file Legal Sex Male 8:04 AM EST Gender Identity Not on file Sexual Orientation Not on file documented as of this encounter Last Filed Vital Signs Vital Sign Reading Time Taken Comments Blood Pressure 100/69 02/14/2025 11:20 AM EDT Pulse 123 02/14/2025 11:20 AM EDT Temperature 36.1 C (97 F) 02/14/2025 11:20 AM EDT Respiratory Rate 16 02/14/2025 11:20 AM EDT Oxygen Saturation 99% 02/14/2025 11:20 AM EDT Inhaled Oxygen Concentration - - Weight 72.1 kg (159 lb) 02/14/2025 11:20 AM EDT Height 171.5 cm (5' 7.52 ) 02/14/2025 11:20 AM E DT Body Mass Index 24.52 02/14/2025 11:20 AM EDT documented in this encounter Progress Notes * Tawny Vega APRN.YOUTH AGENT - 02/14/2025 10:00 AM EDT Images from the original note were not included. PATIENT NAME: Frantz Roa [facility] NO.: [id number] ATTENDING PHYSICIAN: Kvng Perez MD DATE OF SERVICE: February 14, 2025 (Silvia) Dear Dr. Yordan Feliciano [address] [address] thank you for referring Frantz Roa II for an opinion regarding Lung cancer. Some of the elements of this note have been copied from my previous progress note dated 02/05/25 . All the information has been reviewed [...] 12/15-12/22/24 with pneumonia - CT C/A/P at [facility] in December 2024 is negative for mets. - C/o right sided chest pain - He will finish antibiotics on Wednesday. 01/02/25: - C/o chills. - Started radiation today - Cycle 1 chemo today. - C/o loss of appetite and weight loss. 01/08/25: - Hospitalized last week with PNA. Treated with Abx. - CT chest at [facility] on 01/02/25 showed T5 lytic lesin. Cannot exclude malignancy - On PO abx - No other complaints. 01/15/25: - C/o worsening chest pain - C/o Shortness of Breath and difficulty swallowing - C/o headache and vision changes. 01/18/25: - Hospitalized at [facility] for pneumonia - C/o chest pain 02/05/25: - Doing well - C/o cough with mucus - 2.5 more weeks of radiation therapy remaining - Cycle 2 day 1 cisplatin etoposide this week - Had fever on Wednesday02/14/25: Radiation therapy is scheduled to conclude next . A PET scan is planned 3-4 weeks post-radiation to evaluate treatment response, with potential initiation of maintenance immunotherapy based on the findings. Recent labs show a WBC count of 5.05 x 10^9/L, hemoglobin at 7 g/dL, and platelets at 76 x 10^9/L. Electrolytes are stable, with potassium at 4.1 mmol/L. Patient reports significant fatigue, weakness, decreased appetite, and weight loss, with a current weight of 159 lbs, down from 162 lbs. He denies experiencing nausea, vomiting, diarrhea, constipation, or neuropathy. Current Outpatient Medications Medication Sig midodrine (PROAMATINE) 2.5 mg tablet TAKE 1 TABLET BY MOUTH THREE TIMES A DAY chlorproMAZINE (THORAZINE) 25 mg tablet Take 1 tablet by mouth three times a day as needed for up to 10 days. baclofen 10 mg tablet Take 1 tablet by mouth three times a day as needed for up to 10 days. colchicine 0.6 mg tablet Dextromethorphan-guaiFENesin (MUCINEX FAST-MAX [...] tablet by mouth daily at bedtime. Ipratropium [place] (ATROVENT) 21 mcg (0.03 %) nasal spray Use 2 sprays in the nose two times a day. amoxicillin-clavulanate potassium (AUGMENTIN) 875-125 mg per tablet [...] : Deferred LABS: Glucose (mg/dL) Date Value 02/14/2025 116 Potassium (mmol/L) Date Value 02/14/2025 4.1 Sodium (mmol/L) Date Value 02/14/2025 136 Chloride (mmol/L) Date Value 02/14/2025 105 CO2 (mmol/L) Date Value 02/14/2025 19 Creatinine (mg/dL) Date Value 02/14/2025 0.80 BUN (mg/dL) Date Value 02/14/2025 21 Anion Gap (mmol/L) Date Value 02/14/2025 12 Calcium, Total (mg/dL) Date Value 02/14/2025 9.0 Protein, Total (g/dL) Date Value 02/14/2025 7.1 Albumin (g/dL) Date Value 02/14/2025 3.5 Bilirubin, Total (mg/dL) Date Value 02/14/2025 0.3 Alkaline Phosphatase (U/L) Date Value 02/14/2025 103 AST (U/L) Date Value 02/14/2025 18 ALT (U/L) Date Value 02/14/2025 10 WBC Date Value Ref Range Status 02/14/2025 5.05 3.70 - 11.00 k/uL Preliminary RBC Date Value Ref Range Status 02/14/2025 2.77 (L) 4.20 - 6.00 m/uL Preliminary Hemoglobin Date Value Ref Range Status 02/14/2025 7.0 (L) 13.0 - 17.0 g/dL Preliminary Hematocrit Date Value Ref Range Status 02/14/2025 22.5 (L) 39.0 - 51.0 % Preliminary MCV Date Value Ref Range Status 02/14/2025 81.2 80.0 - 100.0 fL Preliminary MCH Date Value Ref Range Status 02/14/2025 25.3 (L) 26.0 - 34.0 pg Preliminary MCHC Date Value Ref Range Status 02/14/2025 31.1 30.5 - 36.0 g/dL Preliminary RDW-CV Date Value Ref Range Status 02/14/2025 16.4 (H) 11.5 - 15.0 % Preliminary Platelet Count Date Value Ref Range Status 02/14/2025 76 (L) 150 - 400 k/uL Preliminary Comment: No clot detected. MPV Date Value Ref Range Status 02/14/2025 10.3 9.0 - 12.7 fL Preliminary Abs Neut Date Value Ref Range Status 02/05/2025 17.87 (H) 1.45 - 7.50 k/uL Final Lymphocytes % Date Value Ref Range Status 02/05/2025 1.9 % Final Abs Lymph Date Value Ref Range Status 02/05/2025 0.38 (L) 1.00 - 4.00 k/uL Final Monocytes % Date Value Ref Range Status 02/05/2025 5.6 % Final Abs Ward Date Value Ref Range Status 02/05/2025 1.10 (H) <0.87 k/uL Final Eosin% Date Value Ref Range Status 01/15/2025 0.9 % Final Abs Eosin Date Value Ref Range Status 02/05/2025 <0.03 <0.46 k/uL Final Basophils % Date Value Ref Range Status 02/05/2025 0.6 % Final Abs Baso Date Value Ref Range Status 02/05/2025 0.12 (H) <0.11 k/uL Final PATH: IMAGING: PET scan [...] 12/15-12/22/24 with pneumonia - CT C/A/P at [facility] in December 2024 is negative for mets - Right lung, bronchus intermedius, endobronchial biopsy: Squamous cell carcinoma. PD-L1 TPS 0%. - Due for cycle 1 D1 weekly carbo taxol on 01/02/25. Pt developed infusion reaction after starting Taxol infusion. - Developed sweating, hypotension, lethargy, tachycardia etc. Pt was sent to hospital. - CT chest at [facility] on 01/02/25 showed T5 lytic lesion. Cannot exclude malignancy. Monitor for now. - Recd cycle 1 cisplatin etoposide from 01/08-01/12/25. - Missed C1 D8 cisplatin due to hospitalization - Hospitalized from 01/15-01/18/25 with pneumonia PLAN: 1. Malignant neoplasm of lower lobe of right lung (HCC) - ICD9: 162.5, ICD10: C34.31 - Hold C2 D8 one week for thrombocytopenia. - Continue radiation - - Order 1 unit PRBC transfusion at [facility]. - Educated patient and family on the role of hemoglobin in oxygen transport and the expected improvement in fatigue and weakness following transfusion. - We will repeat PET scan 3-4 weeks after completing radiation therapy and then start maintenance Durvalumab depending on PET findings. - All his questions answered in detail. - F/u in [address] Yordan Feliciano [address] [place] [address] thank you for allowing me to participate in [facility], if there are any questions or concerns please do not hesitate to contact me at the number below. I spent a total of 30 minutes on the date of the service which included preparing to see the patient, [id number] patient care, completing clinical documentation, obtaining and/or reviewing separately obtained history, performing a medically appropriate examination, counseling and educating the pat ient/family/caregiver, ordering medications, tests, or procedures, communicating with other HCPs (not separately reported), independently interpreting results (not separately reported), communicatingresults to the patient/family/caregiver, and care coordination (not separately reported). Tawny Vega APRN, [employer]ILFIELD PLANT AND FIELD OPERATOR-C, [facility] Hematology and Oncology Services Provided at: [place], [place] CC: documented in this encounter Plan of Treatment Upcoming Encounters Date Type Department Care Team (Latest Contact Info) Description 02/19/2025 11:45 AM EDT Appointment Radiation Oncology [address] [place] [address] [place] [address] Lung 02/19/2025 11:45 AM EDT Nurse Visit Radiation Oncology [address] [place] [address] [place] [address] Mae, Nurse Radt [address] [place] [address] [place] [address] pulse monitoring 02/20/2025 10:30 AM EDT Office Visit Palliative Medicine [address] [place] [address] [place] [address] Kisha Craig APRN.YOUTH AGENT [address] [place] [address] 4 week follow up 02/20/2025 11:45 AM EDT Appointment Radiation Oncology [address] [place] [address] [place] [address] Lung- Pall med 10:30 02/20/2025 11:45 AM EDT Nurse Visit Radiation Oncology [address] [place] [address] Mae, Nurse Radt [address] [place] [address] pulse monitoring 02/21/2025 8:00 AM EDT Appointment Radiation Oncology [address] [place] [address] Lung - 845 LAB, 9 MILLS, 930 CHEMO x6 HRS 02/21/2025 8:45 AM EDT Office Visit [facility] [address] [address] lab follow up and chemotx Cisplatin + IV MAG - PUT PATIENT BACK ON Wednesday02/21/2025 9:00 AM EDT Visit (SP) Office Hematology/Oncology [address] [place] [address] Kvng Perez MD [address] [place] [address] lab follow up and chemotx Cisplatin + IV MAG - PUT PATIENT BACK ON Wednesday02/21/2025 9:30 AM EDT [facility] Hematology/Oncology [address] [place] [address] Mae, Chair [address] [place] [address] lab follow up and chemotx Cisplatin + IV MAG - PUT PATIENT BACK ON Wednesday02/21/2025 11:45 AM EDT Nurse Visit Radiation Oncology [address] [address] Mae, Nurse Radt [address] [place] [address] pulse monitoring 02/21/2025 12:00 PM EDT Office Visit Radiation Oncology [address] [place] [address] Ezra Moreno MD [address] [place] [address] Location: [facility]-ON TREATMENT REV 02/22/2025 11:45 AM EDT Appointment Radiation Oncology [address] [place] [address] Lung 02/22/2025 11:45 AM EDT Nurse Visit Radiation Oncology [address] [place] [address] [place] [address] Mae, Nurse Radt [address] [place] [place] [address] pulse monitoring 05/28/2025 11:30 AM EST Office Visit Radiation Oncology [address] [place] [address] [place] [address] Ezra Moreno MD [address] [place] [address] 3-4 month final radiation follow up documented as of this encounter Visit Diagnoses Diagnosis Malignant neoplasm of lower lobe of right lung (HCC)- Primary Encounter for antineoplastic chemotherapy Chemotherapy-induced fatigue Weakness Other malaise and fatigue Anemia due to antineoplastic chemotherapy Antineoplastic chemotherapy induced anemia Protein-calorie malnutrition, unspecified severity (HCC) documented in this encounter Care Teams Cartographic Technician Relationship Specialty Start Date End Date Brandi Alvarado, AUTO CLEANER.YOUTH AGENT [address] [place] [address] PCP - General Nurse Practitioner 10/27/24 Blanquita Hargrove RN [address] [place] [address] Specialty Ballet Teacher Hematology/Oncology 11/29/24 Kvng Perez MD [address] [place] [address] [place] [address] Physician Hematology/Oncology 11/29/24 Annel Alas LSW Pediatric Speech Language Pathologist 01/08/25 Ricardo Alva RN Specialty Ballet Teacher Hospice & Palliative Medicine 01/23/25 Kisha Craig, AUTO CLEANER.YOUTH AGENT [address] [place] [address] [place] [address] Hospice & Palliative Medicine 01/23/25 documented as of this encounter
--- OUTSIDE RECORDS SUMMARY | 2025-02-15 11:45 | XMS_ITS | Encounter Summary ---
Author Organization [facility] Address [address] [place] [address] Care Team Providers Care Supervisor Fleshing Name Role Phone Brandi Alvarado TREASURY REPRESENTATIVE.TOOL WORKER Primary Care Provider Blanquita Hargrove RN Unavailable [phone] Kvng Perez MD Unavailable [phone] Annel Alas Unavailable Unavailable Ricardo Alva RN Unavailable Unava ilable Kisha Craig TREASURY REPRESENTATIVE.TOOL WORKER Unavailable + Source Comments In the event this information is protected by the Federal Confidentiality of Alcohol and Drug AbusePatient Records regulations: The Federal rules restrict any use of the information to criminally investigate or prosecute any alcohol or drug abuse patient.[facility] Encounter Details Date Type Department Care Team (Late st Contact Info) Description 02/15/2025 11:45 AM EDT Nurse Visit Radiation Oncology [address] [facility] [place] [address] Mae, Nurse Radt [address] [facility] [place] [address] Malignant neoplasm of lower lobe of [...] is lower risk 9 11/15/2024 Data from: https://www.neighborhoodatlas.medicine.[facility].edu/. Last address used for calculation [address] 11/15/2024 Sex and Gender Information Value Date Recorded Sex Assigned at Not on file Legal Sex Male 8:04 AM EST Gender Identity Not on file Sexual Orientation Not on file documented as of this encounter Progress Notes * Cassia Cantu RN - 02/15/2025 12:34 PM EDT Frantz is here for radiation therapy with continuous pulse oximetry. Pulse SpO2 Pre tx 106-109 97% Cone beam 106-108 97% Post cb 106-108 96-98% Tx 105-107 96-97% Post tx 105 96% Patient tolerated treatment without concerns. Cassia Cantu RN documented in this encounter Plan of Treatment Upcoming Encounters Date Type Department Care Team (Latest Contact Info) Description 02/19/2025 11:45 AM EDT Appointment Radiation Oncology [address] [place] [address] Lung 02/19/2025 11:45 AM EDT Nurse Visit Radiation Oncology [address] [place] [address] Mae, Nurse Radt [address] [place] [address] [place] [address] pulse monitoring 02/20/2025 10:30 AM EDT Office Visit Palliative Medicine [address] [place] [address] [place] [address] Kisha Craig, TREASURY REPRESENTATIVE.TOOL WORKER [address] [place] [id number] 4 week follow up 02/20/2025 11:45 AM EDT Appointment Radiation Oncology [address] [place] [address] Lung- Pall med 10:30 02/20/2025 11:45 AM EDT Nurse Visit Radiation Oncology [address] [place] [address] Mae, Nurse Radt [address] [place] [address] pulse monitoring 02/21/2025 8:00 AM EDT Appointment Radiation Oncology [address] [place] [address] Lung - 845 LAB, 9 MILLS, 930 CHEMO x6 HRS 02/21/2025 8:45 AM EDT Office Visit [facility] [address] [place] [address] lab follow up and chemotx Cisplatin + IV MAG - PUT PATIENT BACK ON Wednesday02/21/2025 9:00 AM EDT Visit (SP) Office Hematology/Oncology [address] [place] [address] Kvng Perez MD [address] [place] [address] lab follow up and chemotx Cisplatin + IV MAG - PUT PATIENT BACK ON Wednesday02/21/2025 9:30 AM EDT [facility] Hematology/Oncology [address] [place] [address] Mae, Chair [address] [place] [address] lab follow up and chemotx Cisplatin + IV MAG - PUT PATIENT BACK ON Wednesday02/21/2025 11:45 AM EDT Nurse Visit Radiation Oncology [address] [place] [address] Mae, Nurse Radt [address] [place] [address] pulse monitoring 02/21/2025 12:00 PM EDT Office Visit Radiation Oncology [address] [place] [address] Ezra Moreno MD [address] [place] [address] Location: -ON TREATMENT REV 02/22/2025 11:45 AM EDT Appointment Radiation Oncology [address] [place] [address] Lung 02/22/2025 11:45 AM EDT Nurse Visit Radiation Oncology [address] [place] [address] [place] [address] [place], Nurse Radt [address] [place] [address] [place] [address] pulse monitoring 05/28/2025 11:30 AM EST Office Visit Radiation Oncology [address] [place] [address] [place] [address] Ezra Moreno MD [address] [place] [address] 3-4 month final radiation follow up documented as of this encounter Visit Diagnoses Diagnosis Malignant neoplasm of lower lobe of right lung (HCC)- Primary documented in this encounter Care Teams Supervisor Fleshing Relationship Specialty Start Date End Date Brandi Alvarado, TREASURY REPRESENTATIVE.TOOL WORKER [address] [place] [address] PCP - General Nurse Practitioner 10/27/24 Blanquita Hargrove RN [address] [place] [address] [place] [address] Specialty Salon Customer Experience Specialist Hematology/Oncology 11/29/24 Kvng Perez MD [address] [place] [address] [place] [address] Physician Hematology/Oncology 11/29/24 Annel Alas LSW Head Cashier 01/08/25 Ricardo Alva RN Specialty Salon Customer Experience Specialist Hospice & Palliative Medicine 01/23/25 Kisha Craig, TREASURY REPRESENTATIVE.TOOL WORKER [address] [place] [address] [place] [address] Hospice & Palliative Medicine 01/23/25 documented as of this encounter
--- OUTSIDE RECORDS SUMMARY | 2025-02-16 11:45 | XMS_ITS | Encounter Summary ---
Author Organization [facility] Address [address] [place] [id number] Care Team Providers Care Business Office Representative Name Role Phone Brandi Alvarado CLINICAL PRACTICE CONSULTANT.SENIOR LINUX UNIX ENGINEER Primary Care Provider Blanquita Hargrove RN Unavailable [phone] Kvng Perez MD Unavailable [phone] Annel Alas Unavailable Unavailable Ricardo Alva RN Unavailable Unava ilable Kisha Craig CLINICAL PRACTICE CONSULTANT.SENIOR LINUX UNIX ENGINEER Unavailable + Source Comments In the event this information is protected by the Federal Confidentiality of Alcohol and Drug AbusePatient Records regulations: The Federal rules restrict any use of the information to criminally investigate or prosecute any alcohol or drug abuse patient.[facility] Encounter Details Date Type Department Care Team (Late st Contact Info) Description 02/16/2025 11:45 AM EDT Nurse Visit Radiation Oncology [address] [facility] [facility] [place] [address] Mae, Nurse Radt [address] [facility] [facility] [place] [address] Malignant neoplasm of [...] is lower risk 9 11/15/2024 Data from: https://www.neighborhoodatlas.medicine.[facility]/. Last address used for calculation [address] 11/15/2024 Sex and Gender Information Value Date Recorded Sex Assigned at Not on file Legal Sex Male 8:04 AM EST Gender Identity Not on file Sexual Orientation Not on file documented as of this encounter Progress Notes * Cassia Cantu RN - 02/16/2025 12:07 PM EDT Frantz is here for radiation therapy with continuous pulse oximetry. Pulse SpO2 Pre tx 114-117 98-99% Cone beam 115-116 98-99% Post cb 114-116 96-977% Tx 114-117 98-99% pt's O2 dropped to 79% but instantly went back up to 98%. Patient lying on treatment table, with visible chest rise. Treatment continued without interruption. Post tx 117-118 97-98% Patient tolerated treatment without concerns. Cassia Cantu RN documented in this encounter Plan of Treatment Upcoming Encounters Date Type Department Care Team (Latest Contact Info) Description 02/19/2025 11:45 AM EDT Appointment Radiation Oncology [address] [place] [address] Lung 02/19/2025 11:45 AM EDT Nurse Visit Radiation Oncology [address] [place] [address] Mae, Nurse Radt [address] [place] [address] pulse monitoring 02/20/2025 10:30 AM EDT Office Visit Palliative Medicine [address] [place] [address] Kisha Craig, CLINICAL PRACTICE CONSULTANT.SENIOR LINUX UNIX ENGINEER [address] [place] [id number] 4 week follow up 02/20/2025 11:45 AM EDT Appointment Radiation Oncology [address] [place] [address] Lung- Pall med 10:30 02/20/2025 11:45 AM EDT Nurse Visit Radiation Oncology [address] [place] [place] [address] Mae, Nurse Radt [address] [place] [address] [place] [address] pulse monitoring 02/21/2025 8:00 AM EDT Appointment Radiation Oncology [address] [place] [address] Lung - 845 LAB, [address], 930 CHEMO x6 HRS 02/21/2025 8:45 AM EDT Office Visit [facility] [address] [place] [address] lab follow up and chemotx Cisplatin + IV MAG - PUT PATIENT BACK ON Wednesday02/21/2025 9:00 AM EDT Visit (SP) Office Hematology/Oncology [address] [place] [place] [address] Kvng Perez MD [address] [place] [place] [address] lab follow up and chemotx Cisplatin + IV MAG - PUT PATIENT BACK ON Wednesday02/21/2025 9:30 AM EDT [facility] Hematology/Oncology [address] [place] [place] [address] Mae, Chair [address] [place] [place] [address] lab follow up and chemotx Cisplatin + IV MAG - PUT PATIENT BACK ON Wednesday02/21/2025 11:45 AM EDT Nurse Visit Radiation Oncology [address] [place] [address] [place] [address] Mae, Nurse Radt [address] [place] [place] [address] pulse monitoring 02/21/2025 12:00 PM EDT Office Visit Radiation Oncology [address] [place] [place] [address] Ezra Moerno MD [address] [place] [address] Location: -ON TREATMENT REV 02/22/2025 11:45 AM EDT Appointment Radiation Oncology [address] [place] [address] Lung 02/22/2025 11:45 AM EDT Nurse Visit Radiation Oncology [address] [place] [address] [place] [address] Logan, Nurse Radt [address] [place] [address] pulse monitoring 05/28/2025 11:30 AM EST Office Visit Radiation Oncology [address] [place] [address] [place] [address] Ezra Moreno MD [address] [place] [place] [address] 3-4 month final radiation follow up documented as of this encounter Visit Diagnoses Diagnosis Malignant neoplasm of lower lobe of right lung (HCC)- Primary documented in this encounter Care Teams Business Office Representative Relationship Specialty Start Date End Date Brandi Alvarado APRN.SENIOR LINUX UNIX ENGINEER [address] [place] [address] PCP - General Nurse Practitioner 10/27/24 Blanquita Hargrove RN [address] [place] [place] [address] Specialty Tape Calender Hematology/Oncology 11/29/24 Kvng Perez MD [address] [place] [address] Physician Hematology/Oncology 11/29/24 Annel Alas LSW Geophysics Scientist 01/08/25 Ricardo Alva, RN Specialty Tape Calender Hospice & Palliative Medicine 01/23/25 Kisha Craig, CLINICAL PRACTICE CONSULTANT.[facility] [address] [place] [address] [place] [phone] Hospice & Palliative Medicine 01/23/25 documented as of this encounter
[2025-02-18] VITALS (34 sets, daily range): BP systolic 91–130; BP diastolic 62–87; PULSE 111–131; TEMP 36.5; O2SAT 95–100; BMI 24.9
--- NOTE | 2025-02-18 17:34 | ECG_ITS ---
[facility] Test Date: 2025-02-18 Pat Name: JATIN KOCH Department: Room: - Gender: Male Coke Crane Operator: : 1960 Requested By: [id number] Order Number: [id number] Reading MD: BRODERICK MONTEZ Measurements Intervals Cardale Rate: 121 P: -24480 MA: -29069 QRS: -89 QRSD: 140 T: 78 QT: 382 QTc: 454 Interpretive Statements Ventricular paced rhythm Underlying rhythm appears to be atrial fibrillation Abnormal ECG Electronically Signed On 02-19-2025 19:04:14 EDT by BRODERICK MONTEZ
--- OUTSIDE RECORDS SUMMARY | 2025-02-18 17:41 | XMS_ITS | Clinical Summary ---
Author Organization [employer] tem Address [facility]-[id number] [address] [place] [address] Care Team Providers Care Manager Port Name Role Phone Brandi Alvarado Janeth HERRN-ASSISTANT EDUCATION DIRECTOR Primary Care Provider [phone] Allergies Active Allergy Reactions Criticality Noted Date Comments Sulfamethoxazole-Trimetho prim 12/17/2016 Codeine diaphoresis 11/08/2024 Aprepitant Anaphylaxis High 01/11/2025 Etoposide Anaphylaxis High 01/11/2025 Polysorbate 80 Anaphylaxis High 01/11/2025 Sulfamethoxazole Other (See Comments),GI Disturbance 10/25/2024 Urinary retention Paclitaxel Anaphylaxis High 01/11/2025 Medications meclizine (ANTIVERT) 25 mg tablet Chew [...] (six) hours as needed for pain. Active multivit-min/folic /vit K/lycop (MEN'S 50 PLUS MULTIVITAMIN ORAL) Take by mouth in the morning. Active loratadine (CLARITIN REDITABS) 10 mg disintegrating tablet Dissolve 1 tablet (10 mg total) on tongue in the morning. Active predniSONE (DELTASONE) 20 mg tablet Take 1 tablet (20 mg total) by mouth. 12/06/19 Active albuterol (PROVENTIL,VENTOLI N) 2.5 mg /3 mL (0.083 %) nebulizer solution Inhale 3 mL (2.5 mg total) by nebulization every 6 (six) hours as needed. 12/06/19 Active albuterol (PROVENTIL HFA;VENTOLIN HFA) 90 mcg/actuation inhaler Inhale 2 puffs every 4 (four) hours as needed. 09/14/19 Active dextromethorphan-g uaiFENesin (MUCINEX DM) 30-600 mg tablet extended release 12 hr Take 2 tablets by mouth in the morning and 2 tablets before bedtime. Active ondansetron (ZOFRAN) 8 mg tablet Take 1 tablet (8 mg total) by mouth every 8 (eight) hours as needed. 11/28/19 Active prochlorperazine (COMPAZINE) 10 mg tablet Take 1 tablet (10 mg total) by mouth every 6 (six) hours as needed. 11/28/19 Active diphenhydrAMINE (BenadryL) 25 mg capsule Take 1 capsule (25 mg total) by mouth. 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 Arthritis 11/09/2024 Gout 11/09/2024 Squamous cell lung cancer 11/09/2024 Encounters Date Type Department Care Team Description 02/13/2025 Orders Only [facility] [address] [place] [phone] Bishop Milan APRN-ASSISTANT EDUCATION DIRECTOR AV block; Pacemaker 02/13/2025 Orders Only [facility] [place] [address] External, Scanning Provider 02/09/2025 4:00 PM EDT Office Visit [facility] [address] [place] [address] Bishop Milan APRN-ASSISTANT EDUCATION DIRECTOR AV block (Primary Dx); Pacemaker; Squamous cell carcinoma of lung, unspecified laterality ([facility]) 02/09/2025 3:30 PM EDT Clinical Support [facility] [address] [place] [address] Pacemaker- [place] (Primary Dx) 02/09/2025 Travel 02/08/2025 Orders Only [facility] [address] [place] [address] Transcribe, Orders Support User Pain (Primary Dx) 02/08/2025 Telephone [facility] [address] [place] [phone] Lucrecia Phillips ASPHALT HEATER OPERATOR 01/15/2025 11:10 AM EDT Ancillary Procedure [facility] [address] [place] [address] Pain 01/08/2025 Telephone [facility] [address] [place] [phone] Kisha Betancourt, PRITI Low BP 12/27/2024 Nurse Triage [facility] [address] [place] [address] Alessandra Gagnon, PRITI 12/25/2024 Telephone [facility] [address] [place] [phone] Xiomara Wright, PRITI New AF; PPM upper rate behavior 12/08/2024 Orders Only [facility] [address] [place] [phone] Bridget Jackson CMA Pacemaker 12/07/2024 3:00 PM EDT Office Visit [facility] [address] [place] [phone] Bishop Milan, GLASS DEPOSITION TENDER-ABBEY Pacemaker (Primary Dx); AV block; Squamous cell carcinoma of lung, unspecified laterality ([facility]) 12/07/2024 2:30 PM EDT Clinical Support [facility] [address] [place] [phone] Pacemaker (Primary Dx) 12/07/2024 Telephone [facility] [address] [place] [address] Heavenly Ryder, PRITI Device management during Radiation treatment 12/07/2024 Travel 11/23/2024 Orders Only [facility] [address] [place] [address] Reuben Reyna MD Pacemaker- [place] 11/22/2024 1:00 PM EDT Clinical Support [facility] [address] [place] [address] Pacemaker- [place] (Primary Dx) 11/22/2024 1:00 PM EDT Office Visit [facility] [address] [place] [address] Bishop Milan APRN-ABBEY AV block (Primary Dx); Squamous cell carcinoma of lung, unspecified laterality ([facility]); Pacemaker 11/21/2024 4:26 PM EDT - 11/21/2024 11:59 PM EDT Hospital Encounter [facility] - Radiology [address] [place] [address] Rahul Kaplan MD Pacemaker Discharge Disposition: Home 11/21/2024 Travel 11/21/2024 Telephone [facility] [address] [place] [address] Carolin Forrest RN Elevated RA Threshold from Last 3 Months Immunizations Immunization Administration [...] 0.6 oz pur e alcohol) [facility] Utilities Answer Date Recorded In the [...] Pulse 117 02/09/2025 4:01 PM EDT Temperature 37.3 C (99.1 F) 11/09/2024 4:36 PM EDT Respiratory Rate 20 11/09/2024 4:36 PM EDT Oxygen Saturation 97% 12/07/2024 2:31 PM EDT Inhaled Oxygen Concentration - - Weight 75.3 kg (166 lb) 02/09/2025 4:01 PM EDT Height 172.7 cm (5' 8 ) 02/09/2025 4:01 PM EDT Body Mass Index 25.24 02/09/2025 4:01 PM EDT Plan of Treatment Upcoming Encounters Date Type Department Care Team (Late st Contact Info) Description 05/30/2025 11:30 AM EST Clinical Support [facility] [address] [place] [phone] 05/30/2025 12:30 PM EST Office Visit [facility] [address] [place] [phone] Bishop Milan, VINAY-ASSISTANT EDUCATION DIRECTOR [address] [place] [address] Health Maintenance Due Date Last Done Comments Adult BMI Follow Up Plan 11/03/1979 DTaP,Tdap and Td Vaccines (1 - Tdap) 1980 Zoster (Shingles) Vaccine (1 of 2) 1980 COVID-19 Vaccine (4 - Mixed Product risk season) 2025 03/31/2024, 09/25/2020, 08/28/2020 Influenza Vaccine 02/12/2025 03/31/2024, , 03/16/2022, Additional history exists Depression Screening 11/09/2025 11/09/2024 Tobacco Screening 12/07/2025 12/07/2024 Adult BMI Screening 02/09/2026 02/09/2025 Goals Goal Patient Goal Type Associated Problems Recent Progress Patient-Stated? Author Discharge home General Yes Faye Chow, RN Note: Evaluation of progress towards goal: Pt plans to return home self care with support. Medical Devices Implanted Type Area Remedy Developer Device Identifier Shelf Expiration Date Model / Serial / Lot Lead Pcng 52cm Atr Vntrc Ingevity+ Xtd Rtrct Fx Is-1 [facility] - [id number] - [id number] Implanted:Qt y: 1 on 11/09/2024 by Robert Veloz MD at [facility] Implant Lead Left: Chest [employer]/CRM [id number] 05/24/2026 [id number] / [id number] / Lead Pcng 59cm Atr Vntrc Ingevity+ Xtd Rtrct Fx Is-1 Cnct - [id number] - [id number] Implanted:Qt y: 1 on 11/09/2024 by Robert Veloz MD at [facility] Implant Lead Left: Chest [employer]/CRM [id number] 07/27/2026 [id number] / [id number] / Pacemaker .75cm Acld Mri El 2 Chmbr Is-1 Cnct Avinash Mntr 4.45 - [id number] - [id number] Implanted:Qt y: 1 on 11/09/2024 by Robert Veloz MD at [facility] Pacemaker Left: Chest [employer]/CRM [id number] 08/16/2026 [id number] / [id number] / Procedures Procedure Name Priority Date/Time Associated Diagnosis Comments POCT EKG Routine 02/09/2025 4:02 PM EDT AV block REMOTE DEVICE CHECK Routine 02/09/2025 2 :42 AM EDT DEVICE INTERROGATION Routine 02/09/2025 AV block Pacemaker REMOTE DEVICE CHECK Routine 02/02/2025 2 :41 AM EDT REMOTE DEVICE CHECK Routine 01/26/2025 2 :41 AM EDT REMOTE DEVICE CHECK Routine 01/18/2025 3 :05 PM EDT ECHO DOPPLER Routine 01/16/2025 9:[address] CTA CHEST Routine 01/15/2025 11:10 AM EDT Pain REMOTE DEVICE CHECK Routine 01/10/2025 2 :41 AM EDT REMOTE DEVICE CHECK Routine 12/28/2024 2 :42 AM EDT REMOTE DEVICE CHECK Routine 12/22/2024 6 :46 PM EDT DEVICE INTERROGATION Routine 12/07/2024 Pacemaker IN CLINIC DEVICE CHECK Routine 11:00 PM EDT DEVICE INTERROGATION Routine 11/22/2024 Pacemaker- [place] IN CLINIC DEVICE CHECK Routine 5 11:00 PM EDT XR CHEST 2 VWS Routine 11/21/2024 4:28 PM EDT Pacemaker from Last 3 Months Results * POCT EKG (02/09/2025 4:02 PM EDT) Bishop Milan GLASS DEPOSITION TENDER-ASSISTANT EDUCATION DIRECTOR ECG ORDERABLES Edited Result - Final MANUALLY TRANSCRIBED RESULTS * Remote Device Check (02/09/2025 2:42 AM EDT) Anatomical Region Laterality Modality Other 02/09/2025 2:42 AM EDT Alicia Zurita MD HEALTH MAINTENANCE Final Result * Device Interrogation (02/09/2025) Anatomical Region Laterality Modality Other Bishop Milan GLASS DEPOSITION TENDER-ASSISTANT EDUCATION DIRECTOR CV CARDIAC SERVICES OR DERABLES Final Result * Remote Device Check (02/02/2025 2:41 AM EDT) Anatomical Region Laterality Modality Other 02/02/2025 2:41 AM EDT Reuben Reyna MD HEALTH MAINTENANCE Final Result * Remote Device Check (01/26/2025 2:41 AM EDT) Anatomical Region Laterality Modality Other 01/26/2025 2:41 AM EDT Robert Veloz MD HEALTH MAINTENANCE Final Result * Remote Device Check (01/18/2025 3:05 PM EDT) Anatomical Region Laterality Modality Other 01/18/2025 3:05 PM EDT Alicia Zurita MD HEALTH MAINTENANCE Final Result * Echo Doppler (01/16/2025 9:07 AM EDT) Anatomical Region Laterality Modality Chest N/A Ultrasound us Scanning Provider External CV ECHO ORDERABLES Fi nal Result * CT angiogram chest (01/15/2025 11:10 AM EDT) Scanning Provider External IMG CT ORDERABLES Fin al Result * Remote Device Check (01/10/2025 2:41 AM EDT) Anatomical Region Laterality Modality Other 01/10/2025 2:41 AM EDT Lani Khanna MD HEALTH MAINTENANCE Final Resu lt * Remote Device Check (12/28/2024 2:42 AM EDT) Anatomical Region Laterality Modality Other 12/28/2024 2:42 AM EDT Rahul Kaplan MD HEALTH MAINTENANCE Final Result * Remote Device Check (12/22/2024 6:46 PM EDT) Anatomical Region Laterality Modality Other 12/22/2024 6:46 PM EDT Rahul Kaplan MD HEALTH MAINTENANCE Final Result * Device Interrogation (12/07/2024) Anatomical Region Laterality Modality Other Bishop Milan GLASS DEPOSITION TENDER-ASSISTANT EDUCATION DIRECTOR CV CARDIAC SERVICES OR DERABLES Final Result * In Clinic Device Check (12/06/2024 11:00 PM EDT) Anatomical Region Laterality Modality Other 12/06/2024 11:0 0 PM EDT Robert Veloz MD HEALTH MAINTENANCE Final Result * Device Interrogation (11/22/2024) Anatomical Region Laterality Modality Other Reuben Reyna MD CV CARDIAC SERVICES ORDERABLES Final Result * In Clinic Device Check (11/21/2024 11:00 PM EDT) Anatomical Region Laterality Modality Other 11/21/2024 11:0 0 PM EDT Reuben Reyna MD HEALTH MAINTENANCE Final Result [...] IMG DIAGNOSTIC IMAGING ORDERABLE S Final Result from Last 3 Months Insurance * Guarantor: Frantz Roa II Account Type Relation to Patient Date of Phone Billing Address Personal/Family Self [address] Advance Directives * Full Code (Latest Code Status on File) Date Activated Date Inactivated Comments 11/09/2024 1:06 AM 11/09/2024 8:22 PM Care Teams Manager Port Relationship Specialty Start Date End Date Brnadi Alvarado, GLASS DEPOSITION TENDER-ASSISTANT EDUCATION DIRECTOR [address] [place] [address] PCP - General Nurse Practitioner 11/08/24
--- OUTSIDE RECORDS SUMMARY | 2025-02-18 17:41 | XMS_ITS | Encounter Summary ---
Author Organization [facility] [employer] [facility] Address [id number] [address] [place] [address] Care Team Providers Care Faculty Administrator Name Role Phone Brandi Alvarado Janeth MCLEAN-PUBLIC TRANSIT BUS DRIVER Primary Care Provider [phone] Encounter Details Date Type Department Care Team (Late st Contact Info) Description 12/08/2024 Orders Only [facility] [address] [place] [address] Bridget Jackson, RILEY Pacemaker Social History Tobacco Use Types Packs/Day Years Used Date Smoking Tobacco: Former Cigarettes Q uit: 01/04/2017 Smokeless Tobacco: Never Alcohol Use Standard Drinks/Week Comments Not Currently 0 (1 standard drink = 0.6 oz pur e alcohol) [facility] Utilities Answer Date Recorded In the past [...] Cardiology [address] [place] [phone] 05/30/2025 12:30 PM EST Office Visit [facility] [address] [place] [address] Bsihop Milan, VINAY-PUBLIC TRANSIT BUS DRIVER [address] [place] [address] documented as of this encounter Goals Goal Patient Goal Type Associated Problems Recent Progress Patient-Stated? Author Discharge home General Yes Faye Chow, RN Note: Evaluation of progress towards goal: Pt plans to return home self care with support. documented as of this encounter Procedures Procedure Name Priority Date/Time Associated Diagnosis Comments DEVICE INTERROGATION Routine 12/07/2024 Pacemaker documented in this encounter Results * Device Interrogation (12/07/2024) Anatomical Region Laterality Modality Other Bishop Milan COMPUTER OPERATIONS TECHNICIAN-PUBLIC TRANSIT BUS DRIVER CV CARDIAC SERVICES OR DERABLES Final Result documented in this encounter Visit Diagnoses Diagnosis Pacemaker Cardiac pacemaker in situ documented in this encounter Additional Health Concerns Assessment Noted Time PHQ-9 Depression Total Score: 0 11/10/19 11:28 AM EDT documented as of this encounter Care Teams Faculty Administrator Relationship Specialty Start Date End Date Brandi Alvarado APRN-ABBEY [address] [place] [address] PCP - General Nurse Practitioner 11/08/24 documented as of this encounter
--- OUTSIDE RECORDS SUMMARY | 2025-02-18 17:41 | XMS_ITS | Encounter Summary ---
Author Organization [facility] Address [facility]-[id number] [address] [place] [address] Care Team Providers Care Bottom Man Name Role Phone JennyBrandi mascorro Janeth MCLEAN-ORACLE FINANCIALS CONSULTANT Primary Care Provider [phone] Reason for Visit * Reason Onset Date Comments Chest Pain 12/27/2024 Encounter Details Date Type Department Care Team (Late st Contact Info) Description 12/27/2024 Nurse Triage [facility] [address] [place] [phone] Alessandra Gagnon, RN Social History Tobacco Use Types Packs/Day Years Used Date Smoking Tobacco: Former Cigarettes Q uit: 01/04/2017 Smokeless Tobacco: Never Alcohol Use Standard Drinks/Week Comments Not Currently 0 (1 standard drink = 0.6 oz pur e alcohol) [facility] Utilities Answer Date Recorded In the past 12 months has [employer], gas, oil, or water company threatened to [...] encounter Miscellaneous Notes * Telephone Encounter - Alessandra Gagnon RN - 12/27/2024 5:47 PM EDT ----- Message from Mary Ellen sent at 12/27/2024 5:47 PM EDT ----- Contract: PPCRD Chest pain over heart 5 mins ago. * Telephone Encounter - Alessandra Gagnon RN - 12/27/2024 5:47 PM EDT About 15 minutes ago real sharp ain in middle of his chest. 12/21 speaking with pt and . He is laying down most of the day. Last night his Knee gave out took 90 minutes to get up to bed. Has AC in the bedroom for comfort. 95% with 95 hr. Pain is still present. Reason for Disposition [1] Chest pain lasts > 5 minutes AND [2] age > 30 AND [3] one or more cardiac risk factors (e.g., diabetes, high blood pressure, high cholesterol, smoker, or strong family history of heart disease) Protocols used: Chest Pain-A-AH * Telephone Encounter - Yvette Caceres RN - 12/27/2024 5:47 PM EDT Called pt to follow up. He did not call EMS. Said pain ended up subsided so he held off. He is feeling fine this morning. Denied any other symptoms during the episode. He is wondering if it was indigestion? Advised him to please call EMS or go to EC for any recurrence of symptoms. Msg to SER as last provider to see. * Telephone Encounter - CLINT Chowdary - 12/27/2024 5:47 PM EDT Thx. Would continue to monitor for now * Telephone Encounter - Yvette Caceres RN - 12/27/2024 5:47 PM EDT Called pt with SER response. He v/u documented in this encounter Plan of Treatment Upcoming Encounters Date Type Department Care Team (Late st Contact Info) Description 05/30/2025 11:30 AM EST Clinical Support [facility] [address] [place] [address] 05/30/2025 12:30 PM EST Office Visit [facility] [address] [place] [phone] Bishop Milan APRN-CNP [address] [place] [address] documented as of this encounter Goals Goal [...] documented as of this encounter Care Teams Bottom Man Relationship Specialty Start Date End Date Brandi Alvarado, VINAY-ORACLE FINANCIALS CONSULTANT [address] [phone] PCP - General Nurse Practitioner 11/08/24 documented as of this encounter
--- OUTSIDE RECORDS SUMMARY | 2025-02-18 17:41 | XMS_ITS | Encounter Summary ---
Author Organization [facility] Address [address] [place] [address] Care Team Providers Care Supervisor Cold Rolling Name Role Phone Brandi Alvarado IMMIGRATION SERVICES OFFICER.JEWELER APPRENTICE Primary Care Provider Blanquita Hargrove RN Unavailable [phone] Kvng Perez MD Unavailable [phone] Annel Alas Unavailable Unavailable Ricardo Alva RN Unavailable Unava ilable Kisha Craig IMMIGRATION SERVICES OFFICER.JEWELER APPRENTICE Unavailable + Source Comments In the event this information is protected by the Federal Confidentiality of Alcohol and Drug AbusePatient Records regulations: The Federal rules restrict any use of the information to criminally investigate or prosecute any alcohol or drug abuse patient.[facility] Encounter Details Date Type Department Care Team (Late st Contact Info) Description 11/17/2024 Telephone Hematology/Oncology [address] [place] [address] Kvng Perez MD [facility] [address] [facility] [place] [address] Social History Tobacco Use Types Packs/Day [...] is lower risk 9 11/15/2024 Data from: https://www.neighborhoodatlas.medicine.[facility]/. Last address used for calculation [address] [...] Please load weekly carbo taxol regimen in [place] and schedule it. Thank you documented in this encounter Plan of Treatment Upcoming Encounters Date Type Department Care Team (Latest Contact Info) Description 02/19/2025 11:45 AM EDT Appointment Radiation Oncology [address] [facility] [address] Lung 02/19/2025 11:45 AM EDT Nurse Visit Radiation Oncology [address] [facility] [place] [address] Mae, Nurse Radt [address] [facility] [place] [address] pulse monitoring 02/20/2025 10:30 AM EDT Office Visit Palliative Medicine [address] [facility] [address] Kisha Craig, IMMIGRATION SERVICES OFFICER.JEWELER APPRENTICE [address] [place] [id number] 4 week follow up 02/20/2025 11:45 AM EDT Appointment Radiation Oncology [address] [facility] [place] [address] Lung- Pall med 10:30 02/20/2025 11:45 AM EDT Nurse Visit Radiation Oncology [address] [facility] [place] [address] Mae, Nurse Radt [address] [facility] [place] [address] pulse monitoring 02/21/2025 8:00 AM EDT Appointment Radiation Oncology [address] [facility] [place] [address] Lung - 845 LAB, 9 MILLS, 930 CHEMO x6 HRS 02/21/2025 8:45 AM EDT Office Visit [facility] [address] [facility] [address] lab follow up and chemotx Cisplatin + IV MAG - PUT PATIENT BACK ON Wednesday02/21/2025 9:00 AM EDT Visit (SP) Office Hematology/Oncology [address] [facility] [place] [address] Kvng Perez MD [address] [facility] [place] [address] lab follow up and chemotx Cisplatin + IV MAG - PUT PATIENT BACK ON Wednesday02/21/2025 9:30 AM EDT [facility] Hematology/Oncology [address] [facility] [place] [address] Mae, Chair 7 [address] [facility] [place] [address] lab follow up and chemotx Cisplatin + IV MAG - PUT PATIENT BACK ON Wednesday02/21/2025 11:45 AM EDT Nurse Visit Radiation Oncology [address] [facility] [place] [address] Mae, Nurse Radt [address] [facility] [place] [address] pulse monitoring 02/21/2025 12:00 PM EDT Office Visit Radiation Oncology [address] [facility] [place] [address] Ezra Moreno MD [address] [place] [address] [place] [address] Location: -ON TREATMENT REV 02/22/2025 11:45 AM EDT Appointment Radiation Oncology [address] [facility] [facility] [place] [address] Lung 02/22/2025 11:45 AM EDT Nurse Visit Radiation Oncology [address] [place] [address] [place] [address] Mae, Nurse Radt [address] [facility] [place] [address] pulse monitoring 05/28/2025 11:30 AM EST Office Visit Radiation Oncology [facility] [place] [address] Ezra Moreno MD [address] [place] [address] [place] [address] 3-4 month final radiation follow up documented as of this encounter Visit Diagnoses Diagnosis Malignant neoplasm of lower lobe of right lung (HCC)- Primary documented in this encounter Care Teams Supervisor Cold Rolling Relationship Specialty Start Date End Date Brandi Alvarado APRN.JEWELER APPRENTICE [address] [place] [address] PCP - General Nurse Practitioner 10/27/24 Blanquita Hargrove RN [address] [place] [address] [place] [address] Specialty Newspaper Managing Editor Hematology/Oncology 11/29/24 Kvng Perez MD [address] [place] [address] [place] [address] Physician Hematology/Oncology 11/29/24 Annel Alas LSW Reception 01/08/25 Fleckenstein, Ricardo A, RN Specialty Newspaper Managing Editor Hospice & Palliative Medicine 01/23/25 Kisha [place] APRN.JEWELER APPRENTICE [address] [place] [address] [place] [address] Hospice & Palliative Medicine 01/23/25 documented as of this encounter
--- OUTSIDE RECORDS SUMMARY | 2025-02-18 17:41 | XMS_ITS ---
Author Organization [employer] tem Address [id number] [address] [place] [address] Care Team Providers Care Community Action Worker Name Role Phone Brandi Alvarado APRN-MANUFACTURING COORDINATOR Primary Care Provider [phone] Active Problems Problem Noted Date Diagnosed Date Pacemaker- [facility] 11/22/2024 Syncope 11/15/2024 AV block 11/09/2024 BPH [...]
--- OUTSIDE RECORDS SUMMARY | 2025-02-18 17:41 | XMS_ITS | Encounter Summary ---
[facility] Address [id number] [address] [place] [address] Care Team Providers Care Coil Taper Name Role Phone Jenny, BrandiJasmin MCLEAN-MUD TANK OPERATOR Primary Care Provider [phone] Reason for Visit * Reason Onset Date Comments Device management during Radiation treatment Encounter Details Date Type Department Care Team (Late st Contact Info) Description 12/07/2024 Telephone [facility] [address] [place] [phone] Heavenly Ryder, PRITI Device management during Radiation treatment Social History Tobacco Use Types Packs/Day Years Used Date Smoking Tobacco: Former Cigarettes Q uit: 01/04/2017 Smokeless Tobacco: Never Alcohol Use Standard Drinks/Week Comments Not Currently 0 (1 standard drink = 0.6 oz pur e alcohol) [facility] Utilities Answer Date Recorded In the past 12 months has [employer], gas, oil, or water [employer] threatened to shut off services in your [...] encounter Miscellaneous Notes * Telephone Encounter - Heavenly Ryder RN - 12/07/2024 3:13 PM EDT [place] PPM - implanted 11/09/24 per you. *Elevated RA thresholds - reprogramming done today Patient states he will be having radiation treatment to RLL at [facility] in [place]. Patient is having his simulation done tomorrow. Called [facility] office ([facility]). [phone]. LM to call office back with radiation treatment specifics. * Telephone Encounter - Rosey Richardson RN - 12/07/2024 3:13 PM EDT Received a call back from [facility] radiation department. Cumulative dose to the pacemaker would be 72 cGy over 30 fractions. Recommendations from there physics team would be to do weekly remote home monitoring checks of the pacemaker with real time telemetry and pulse ox. Patient is getting radiation to right lung, 30 treatments. Wednesday - Wednesday. Recent in office device check on 12/07/24. Sinus with CHB underlying. RA pacing 4%, RV pacing 100%. Lead trends stable for patient. Patient does have remote home monitoring. No advisories on device orleads Nereyda and Bessy are the nurses at radiation facility. Call number [phone]. * Telephone Encounter - Robert Veloz MD - 12/07/2024 3:13 PM EDT Agree, weekly remote transmissions during radiation. * Telephone Encounter - Rosey Richardson RN - 12/07/2024 3:13 PM EDT Patient scheduled for weekly remote transmissions to assess device during radiation. Called and left message for radiation nurses on JZL response. Called and left message for patient on plan for weekly remote transmissions. * Telephone Encounter - Rosey Richardson RN - 12/07/2024 3:13 PM EDT Missed transmission yesterday and today. Called and left message for patient. Reviewed how to send manual transmission. Advised patient to call if he needs assistance. * Telephone Encounter - Rosey Richardson RN - 12/07/2024 3:13 PM EDT Missed scheduled remote, called and spoke with patient. He is currently admitted to [facility] in [place]. Patient and are hoping he will be home by next week. documented in this encounter Plan of Treatment Upcoming Encounters Date Type Department Care Team (Late st Contact Info) Description 05/30/2025 11:30 AM EST Clinical Support [facility] [address] [place] [address] 05/30/2025 12:30 PM EST Office Visit [facility] [address] [place] [phone] Bishop Milan, COLLECTIONS REPRESENTATIVE-MUD TANK OPERATOR [address] [place] [address] documented as of this encounter Goals Goal [...] documented as of this encounter Care Teams Coil Taper Relationship Specialty Start Date End Date Brandi Alvarado, COLLECTIONS REPRESENTATIVE-MUD TANK OPERATOR [address] [place] [address] PCP - General Nurse Practitioner 11/08/24 documented as of this encounter
--- OUTSIDE RECORDS SUMMARY | 2025-02-18 17:41 | XMS_ITS | Encounter Summary ---
Author Organization [email or web address] Address [id number] [address] [place] [address] Care Team Providers Care Assembler Molded Frames Name Role Phone JennyNoemyJasmin MCLEAN-PORTFOLIO SPECIALIST Primary Care Provider [phone] [phone] Encounter Details Date Type Department Care Team (Late st Contact Info) Description 02/08/2025 [facility]phone [facility] [address] [place] [phone] Lucrecia Phillips CNA Social History Tobacco Use Types Packs/Day Years Used Date Smoking Tobacco: Former Cigarettes Q uit: 01/04/2017 Smokeless Tobacco: Never Alcohol Use Standard Drinks/Week Comments Not Currently 0 (1 standard drink = 0.6 oz pur e alcohol) [facility] Utilities Answer Date Recorded In the past 12 months has th e [employer], gas, oil, or water company threatened to [...] encounter Miscellaneous Notes * Telephone Encounter - Lucrecia Phillips CNA - 02/08/2025 12:56 PM EDT Called patient to remind them to bring their most current copy of their medication list with them to their appt. Patient verbalizes understanding. documented in this encounter Plan of Treatment Upcoming Encounters Date Type Department Care Team (Late st Contact Info) Description 05/30/2025 11:30 AM EST Clinical Support [facility] [address] [place] [phone] 05/30/2025 12:30 PM EST Office Visit [facility] [address] [place] [phone] Bishop Milan, DIRECTOR MEDICAL-PORTFOLIO SPECIALIST [address] [place] [address] documented as of this encounter Goals Goal [...] documented as of this encounter Care Teams Assembler Molded Frames Relationship Specialty Start Date End Date Brandi Alvarado, DIRECTOR MEDICAL-PORTFOLIO SPECIALIST [address] [place] [address] PCP - General Nurse Practitioner 11/08/24 documented as of this encounter
--- OUTSIDE RECORDS SUMMARY | 2025-02-18 17:41 | XMS_ITS | Encounter Summary ---
Author Organization [email or web address] tem Address [id number] [address] [place] [address] Care Team Providers Care Car Hop Name Role Phone Jenny Brandi Fowler APRN-SUPERVISOR BOARDING Primary Care Provider [phone] [phone] Reason for Referral * Diagnostic Imaging (Routine) - Pending Review Specialty Diagnoses / Procedures Referred By Contac t Referred To Contact Radiology Diagnoses Pain Procedures CT angiogram chest [facility] [address] [place] [phone] Phone: tel: fax: Referral ID Status Reason Start Date Expiration Date V isits Requested Visits Authorized [id number] Pending Review 02/08/2025 02/08/2026 1 1 Encounter Details Date Type Department Care Team (Late st Contact Info) Description 02/08/2025 Orders Only [facility] [address] [place] [phone] Transcribe, Orders Support User Pain (Primary Dx) Social History Tobacco Use Types Packs/Day Years Used Date Smoking Tobacco: Former Cigarettes Q uit: 01/04/2017 Smokeless Tobacco: Never Alcohol Use Standard Drinks/Week Comments Not Currently 0 (1 standard drink = 0.6 oz pur e alcohol) [facility] Utilities Answer Date Recorded In the past 12 months has e electric, gas, oil, or water company [...] Cardiology [address] [place] [phone] 05/30/2025 12:30 PM EST Office Visit [facility] [address] [place] [phone] Bishop Milan, DICE TABLE OPERATOR-SUPERVISOR BOARDING [address] [place] [address] documented as of this encounter Goals Goal Patient Goal Type Associated Problems Recent Progress Patient-Stated? Author Discharge home General Yes Faye Chow, PRITI Note: Evaluation of progress towards goal: Pt plans to return home self care with support. documented as of this encounter Results * CT angiogram chest (01/15/2025 11:10 AM EDT) us Scanning Provider External IMG CT ORDERABLES Fin al Result documented in this encounter Visit Diagnoses Diagnosis Pain- Primary Generalized pain documented in this encounter Additional Health Concerns Assessment Noted Time PHQ-9 Depression Total Score: 0 11/10/19 11:28 AM EDT documented as of this encounter Care Teams Car Hop Relationship Specialty Start Date End Date Brandi Alvarado APRN-SUPERVISOR BOARDING [address] [place] [address] PCP - General Nurse Practitioner 11/08/24 documented as of this encounter
--- OUTSIDE RECORDS SUMMARY | 2025-02-18 17:41 | XMS_ITS | Encounter Summary ---
Author Organization [employer] [facility] tem Address [id number] [address] [place] [address] Care Team Providers Care Boot And Shoe Laborer Name Role Phone Jenny, BrandiJasmin MCLEAN-STATEMENT CLERKS MANAGER Primary Care Provider [phone] [phone] Encounter Details Date Type Department Care Team (Latest Contact Info) Description 02/09/2025 Travel Social History Tobacco Use Types Packs/Day Years Used Date Smoking Tobacco: Former Cigarettes Q uit: 01/04/2017 Smokeless Tobacco: Never Alcohol Use Standard Drinks/Week Comments Not Currently 0 (1 standard drink = 0.6 oz pur e alcohol) [facility] Utilities Answer Date Recorded In the past 12 months has [employer], gas, oil, or water [employer] threatened to shut off services in your [...] Cardiology [address] [place] [address] 05/30/2025 12:30 PM EST Office Visit [facility] [address] [place] [address] Bishop Milan, ORE SMELTER-STATEMENT CLERKS MANAGER [address] [place] [address] documented as of this encounter Goals Goal [...] documented as of this encounter Care Teams Boot And Shoe Laborer Relationship Specialty Start Date End Date Brandi Alvarado, ORE SMELTER-STATEMENT CLERKS MANAGER [address] [place] [address] PCP - General Nurse Practitioner 11/08/24 documented as of this encounter
--- OUTSIDE RECORDS SUMMARY | 2025-02-18 17:41 | XMS_ITS | Encounter Summary ---
Author Organization [employer] [facility] tem Address [id number] [address] [place] [address] Care Team Providers Care Egg Crater Name Role Phone JennyBrandi mascorro Janeth SHIP FITTER-ARTIST WOODBLOCK Primary Care Provider [phone] Encounter Details Date Type Department Care Team (Late st Contact Info) Description 02/13/2025 Orders Only [facility] [address] [place] [phone] Bishop Milan, SHIP FITTER-ARTIST WOODBLOCK [address] [place] [address] AV block; Pacemaker Social History Tobacco Use Types Packs/Day Years Used Date Smoking Tobacco: Former Cigarettes Q uit: 01/04/2017 Smokeless Tobacco: Never Alcohol Use Standard Drinks/Week Comments Not Currently 0 (1 standard drink = 0.6 oz pur e alcohol) [facility] Utilities Answer Date Recorded In the past 12 months has [employer]), gas, oil, or water [employer] threatened to shut off services in your [...] Cardiology [address] [place] [address] 05/30/2025 12:30 PM EST Office Visit [facility] [address] [place] [address] Bishop Milan, SHIP FITTER-ARTIST WOODBLOCK [address] [place] [address] documented as of this encounter Goals Goal Patient Goal Type Associated Problems Recent Progress Patient-Stated? Author Discharge home General Yes Faye Chow RN Note: Evaluation of progress towards goal: Pt plans to return home self care with support. documented as of this encounter Procedures Procedure Name Priority Date/Time Associated Diagnosis Comments DEVICE INTERROGATION Routine 02/09/2025 AV block Pacemaker documented in this encounter Results * Device Interrogation (02/09/2025) Anatomical Region Laterality Modality Other Bishop JARAMILLO CV CARDIAC SERVICES OR DERABLES Final Result documented in this encounter Visit Diagnoses Diagnosis AV block Unspecified atrioventricular block Pacemaker Cardiac pacemaker in situ documented in this encounter Additional Health Concerns Assessment Noted Time PHQ-9 Depression Total Score: 0 11/10/19 11:28 AM EDT documented as of this encounter Care Teams Egg Crater Relationship Specialty Start Date End Date Brandi Alvarado APRN-ABBEY [address] [place] [address] PCP - General Nurse Practitioner 11/08/24 documented as of this encounter
--- OUTSIDE RECORDS SUMMARY | 2025-02-18 17:41 | XMS_ITS | Encounter Summary ---
Author Organization [facility] [employer] tem Address [id number] [address] [place] [address] Care Team Providers Care Learning Disabilities Resource Teacher Name Role Phone Brandi Alvarado Janeth MCLEAN-COTTON BREEDER Primary Care Provider [phone] [phone] Encounter Details Date Type Department Care Team (Late st Contact Info) Description 02/13/2025 Orders Only [facility] [address] [place] [phone] External, Scanning Provider Social History Tobacco Use Types Packs/Day Years Used Date Smoking Tobacco: Former Cigarettes Q uit: 01/04/2017 Smokeless Tobacco: Never Alcohol Use Standard Drinks/Week Comments Not Currently 0 (1 standard drink = 0.6 oz pur e alcohol) [facility] Utilities Answer Date Recorded In [...] Cardiology [address] [place] [address] 05/30/2025 12:30 PM EST Office Visit [facility] [address] [place] [address] Bishop Milan, ORACLE APPLICATIONS DEVELOPER-COTTON BREEDER [address] [place] [address] documented as of this encounter Goals Goal Patient Goal Type Associated Problems Recent Progress Patient-Stated? Author Discharge home General Yes Faye Chow, RN Note: Evaluation of progress towards goal: Pt plans to return home self care with support. documented as of this encounter Procedures Procedure Name Priority Date/Time Associated Diagnosis Comments ECHO DOPPLER Routine 01/16/2025 9:07 AM EDT documented in this encounter Results * Echo Doppler (01/16/2025 9:07 AM EDT) Anatomical Region Laterality Modality Chest N/A Ultrasound us Scanning Provider External CV ECHO ORDERABLES Fi nal Result documented in this encounter Visit Diagnoses Not on filedocumented in this encounter Additional Health Concerns Assessment Noted Time PHQ-9 Depression Total Score: 0 11/10/19 11:28 AM EDT documented as of this encounter Care Teams Learning Disabilities Resource Teacher Relationship Specialty Start Date End Date Brandi Alvarado APRN-COTTON BREEDER [address] [place] [address] PCP - General Nurse Practitioner 11/08/24 documented as of this encounter
--- OUTSIDE RECORDS SUMMARY | 2025-02-18 17:41 | XMS_ITS | Encounter Summary ---
Author Organization [facility] Address [address] [place], [place] [id number] Care Team Providers Care Librarian Specialist Name Role Phone Brandi Alvarado LEAD TECHNICAL ARCHITECT.OPERATIONS SECTION MANAGER Primary Care Provider Blanquita Hargrove RN Unavailable [phone] Kvng Perez MD Unavailable [phone] Annel Alas Unavailable Unavailable Ricardo Alva RN Unavailable Unava ilable Kisha Craig LEAD TECHNICAL ARCHITECT.OPERATIONS SECTION MANAGER Unavailable + Source Comments In the event this information is protected by the Federal Confidentiality of Alcohol and Drug AbusePatient Records regulations: The Federal rules restrict any use of the information to criminally investigate or prosecute any alcohol or drug abuse patient.[facility] Encounter Details Date Type Department Care Team (Latest Contact Info) Description 01/08/2025 H&P External-NonCCF Provider, External, PADellaC Do not enter address information under generic [...] is lower risk 9 11/15/2024 Data from: [email or web address].[email or web address] Last address used for calculation [...] 11:45 AM EDT Appointment Radiation Oncology [address] [facility] [place] [address] Lung 02/19/2025 11:45 AM EDT Nurse Visit Radiation Oncology [address] [place] [address] Mae Nurse Radt [address] [place] [address] pulse monitoring 02/20/2025 10:30 AM EDT Office Visit Palliative Medicine [address] [place] [address] Kisha Craig, LEAD TECHNICAL ARCHITECT.OPERATIONS SECTION MANAGER [address] [place] [address] 4 week follow up 02/20/2025 11:45 AM EDT Appointment Radiation Oncology [address] [place] [address] Lung- Pall med 10:30 02/20/2025 11:45 AM EDT Nurse Visit Radiation Oncology [address] [place] [address] Mae Nurse Radt [address] [place] [address] pulse monitoring 02/21/2025 8:00 AM EDT Appointment Radiation Oncology [address] [place] [address] Lung - 845 LAB, 9 MILLS, 930 CHEMO x6 HRS 02/21/2025 8:45 AM EDT Office Visit [facility] [address] [facility] [place] [address] lab follow up and chemotx Cisplatin + IV MAG - PUT PATIENT BACK ON Wednesday02/21/2025 9:00 AM EDT Visit (SP) Office Hematology/Oncology [address] [facility] [place] [address] Kvng Perez MD [address] [facility] [place] [address] lab follow up and chemotx Cisplatin + IV MAG - PUT PATIENT BACK ON Wednesday02/21/2025 9:30 AM EDT [facility] Hematology/Oncology [address] [facility] [facility] [place] [address] Mae, Chair 7 [address] [facility] [place] [address] lab follow up and chemotx Cisplatin + IV MAG - PUT PATIENT BACK ON Wednesday02/21/2025 11:45 AM EDT Nurse Visit Radiation Oncology [address] [facility] [facility] [place] [address] Mae, Nurse Radt [address] [facility] [place] [address] pulse monitoring 02/21/2025 12:00 PM EDT Office Visit Radiation Oncology [address] [facility] [facility] [place] [address] Ezra Moreno MD [address] [facility] [facility] [place] [address] Location: [facility] TREATMENT REV 02/22/2025 11:45 AM EDT Appointment Radiation Oncology [address] [facility] [facility] [place] [address] Lung 02/22/2025 11:45 AM EDT Nurse Visit Radiation Oncology [address] [facility] [facility] [place] [address] Mae, Nurse Radt [address] [facility] [place] [address] pulse monitoring 05/28/2025 11:30 AM EST Office Visit Radiation Oncology [address] [facility] [facility] [place] [address] Ezra Moreno MD [address] [facility] [place] [address] 3-4 month final radiation follow up documented as of this encounter Visit Diagnoses Not on filedocumented in this encounter Care Teams Librarian Specialist Relationship Specialty Start Date End Date Brnadi Alvarado, LEAD TECHNICAL ARCHITECT.OPERATIONS SECTION MANAGER [address] [place] [address] PCP - General Nurse Practitioner 10/27/24 Blanquita Hargrove, RN [address] [facility] [place] [address] Specialty Tierce Filler Hematology/Oncology 11/29/24 Kvng Perez MD [address] [place] [address] [place] [address] Physician Hematology/Oncology 11/29/24 Annel Alas LSW Artist Color Separation 01/08/25 Ricardo Alva, RN Specialty Tierce Filler Hospice & Palliative Medicine 01/23/25 Kisha Craig, LEAD TECHNICAL ARCHITECT.OPERATIONS SECTION MANAGER [address] [place] [address] [place] [id number] Hospice & Palliative Medicine 01/23/25 documented as of this encounter
--- OUTSIDE RECORDS SUMMARY | 2025-02-18 17:42 | XMS_ITS | Clinical Summary ---
Author Organization [facility] Address [address] [place] [address] Care Team Providers Care Crop Adjuster Name Role Phone Unavailable Primary Care Provider Unavailabl e Social History Tobacco Use Types Packs/Day Years [...] EDT Plan of Treatment Not on file Insurance [facility]
--- OUTSIDE RECORDS SUMMARY | 2025-02-18 17:42 | XMS_ITS ---
Author Organization [facility] Address [address] [place], [place] [id number] Care Team Providers Care Childcare Director Name Role Phone Brandi Alvarado TAVERN OPERATOR.CLUTCH ASSEMBLER Primary Care Provider Blanquita Hargrove RN Unavailable [phone] Kvng Perez MD Unavailable [phone] Annel Alas Unavailable Unavailable Ricardo Alva RN Unavailable Unava ilable Kisha Craig TAVERN OPERATOR.CLUTCH ASSEMBLER Unavailable + Active Problems Problem Noted Date Diagnosed Date Dehydration 01/24/2025 Malignant neoplasm of lower lobe of right lung 0 11/17/2024 Calcifying tendinitis of shoulder 03/25/2006 Disorders of bursae and tend ons in shoulder region, unspecified 03/25/2006 Lesion of ulnar nerve 03/25/2006 Carpal tunnel syndrome 03/25/2006 Current Treatment and Therapy Plans AMB CISPLATIN 50 D1,8 ETOPOSIDE 50 D1-5 - Q28D* Plan Start Date:01/08/2025 Plan Provider:Kvng Perez MD Linked Problems Malignant neoplasm of lower lobe of right lung (HCC) Treatment Medications Current Day (Day 8 , Cycle 2 - Planned for 02/14/2025) Next Day (Day 1, Cycle 3 - Planned for 03/05/2025) CISplatin iv piggyback or iv infusionetoposide iv piggyback (VEPESID)etoposide phosphate iv piggyback (ETOPOPHOS)palonosetron (ALOXI) CISplatin 94 mg in NaCl 0.9% 1,094 mL (PLATINOL)palonosetron 0.25 mg injection (ALOXI) CISplatin 94 mg in NaCl 0.9% 1,094 mL (PLATINOL)etoposide phosphate 94 mg in NaCl 0.9% 104.7 mLpalonosetron 0.25 mg injection (ALOXI) Other Current Plans AMB HYDRATION - NS 1000ML IV - ONCE* Plan Start Date:01/30/2025 Plan Provider:Kvng Perez MD Linked Problems Dehydration Treatment Medications No medications scheduled. Past Treatment and Therapy Plans ONCOLOGY REGIMEN Plan Name Start Date Discontinue Date Treatment Medications Discontinue Reason Plan Provider Cycles AMB PACLITAXEL 50 CARBOPLATIN 2 D1,8,15,22,29, 36 - Q42D 5 01/05/2025 CARBOplatin iv piggyback (PARAPLATIN)PA CLitaxel (TAXOL)PACLita xel iv piggyback in 250 mL (TAXOL)palonos etron (ALOXI) Not Tolerated Kvng Fairbanks MD 1 of 1 cycle started
--- OUTSIDE RECORDS SUMMARY | 2025-02-18 17:42 | XMS_ITS | Encounter Summary ---
Author Organization [facility] Address [address] [place] [address] Phone Care Team Providers Care Mathematics Improvement Teacher Name Role Phone Unavailable Primary Care Provider Unavailabl e Encounter Details Date Type Department Care Team (Late st Contact Info) Description 01/16/2025 Scanned Document [facility] [address] [place] [address] Scanning, Generic Provider Social History Tobacco Use Types Packs/Day Years Used Date Smoking Tobacco: Never Assessed Comments Unknown Sex and Gender Information Value Date Recorded Sex Assigned at Not on file Legal Sex Unknown 01/15/2025 3:47 PM EDT Gender Identity Not on file Sexual Orientation Not on file documented as of this encounter Plan of Treatment Not on file documented as of this encounter Procedures Procedure Name Priority Date/Time Associated Diagnosis Comments ECHOCARDIOGRAM 01/16/2025 documented in this encounter Results * Echocardiogram (01/16/2025) Narrative 01/16/2025 Ordered by an unspecified provider. us Generic Provider Scanning CV ECHO PROCEDURES Fin al Result documented in this encounter Visit Diagnoses Not on filedocumented in this encounter
--- OUTSIDE RECORDS SUMMARY | 2025-02-18 17:42 | XMS_ITS | Encounter Summary ---
Author Organization [facility] Address [address] [place] [address] Care Team Providers Care Shaper Operator Name Role Phone Doug Bowles Primary Care Provider [phone] Brandi Alvarado WEIGHT INSPECTOR.OPTICAL SALES ASSOCIATE Primary Care Provider Blanquita Hargrove RN Unavailable [phone] Kvng Perez MD Unavailable [phone] Annel Alas Unavailable Unavailable Ricardo Alva RN Unavailable Unava ilable Kisha Craig WEIGHT INSPECTOR.OPTICAL SALES ASSOCIATE Unavailable + Source Comments In the event [...] Contact Info) Description 03/25/2006 Abstract Neurology [address] [place] [address] Laith Norton MD [address] [place] [address] Results (Dept. of Neurology Report) [...] 11:45 AM EDT Appointment Radiation Oncology [address] [facility] [place] [address] Lung 02/19/2025 11:45 AM EDT Nurse Visit Radiation Oncology [address] [place] [address] [place] [address] Mae, Radt [address] [place] [address] [place] [address] pulse monitoring 02/20/2025 10:30 AM EDT Office Visit Palliative Medicine [address] [place] [address] [place] [address] Kisha Craig, WEIGHT INSPECTOR.OPTICAL SALES ASSOCIATE [address] [place] [address] 4 week follow up 02/20/2025 11:45 AM EDT Appointment Radiation Oncology [address] [place] [address] [place] [address] Lung- Pall med 10:30 02/20/2025 11:45 AM EDT Nurse Visit Radiation Oncology [address] [place] [address] [place] [address] Mae, Nurse Radt [address] [place] [address] [place] [address] pulse monitoring 02/21/2025 8:00 AM EDT Appointment Radiation Oncology [address] [facility] [place] [address] Lung - 845 LAB, 9 MILLS, 930 CHEMO x6 HRS 02/21/2025 8:45 AM EDT Office Visit [facility] [address] [facility] [place] [address] lab follow up and chemotx Cisplatin + IV MAG - PUT PATIENT BACK ON Wednesday02/21/2025 9:00 AM EDT Visit (SP) Office Hematology/Oncology [address] [facility] [place] [address] Kvng Perez MD [address] [facility] [place] [address] lab follow up and chemotx Cisplatin + IV MAG - PUT PATIENT BACK ON Wednesday02/21/2025 9:30 AM EDT [facility] Center Hematology/Oncology [address] [facility] [place] [address] Mae, Chair 7 [address] [facility] [place] [address] lab follow up and chemotx Cisplatin + IV MAG - PUT PATIENT BACK ON Wednesday02/21/2025 11:45 AM EDT Nurse Visit Radiation Oncology [address] [facility] [place] [address] Mae, Nurse Radt [address] [facility] [place] [address] pulse monitoring 02/21/2025 12:00 PM EDT Office Visit Radiation Oncology [address] [facility] [place] [address] Ezra Moreno MD [address] [facility] [place] [address] Location: SA-ON TREATMENT REV 02/22/2025 11:45 AM EDT Appointment Radiation Oncology [address] [facility] [place] [address] Lung 02/22/2025 11:45 AM EDT Nurse Visit Radiation Oncology [address] [facility] [place] [address] Nurse Mae Radt [address] [facility] [place] [address] pulse monitoring 05/28/2025 11:30 AM EST Office Visit Radiation Oncology [address] [place] [address] Ezra Moreno MD [address] [facility] [place] [address] 3-4 month final radiation follow up documented as of this encounter Visit Diagnoses Not on filedocumented in this encounter Care Teams Shaper Operator Relationship Specialty Start Date End Date Wilbur Vamsi PCP - General 02/23/06 10/26/24 Brandi Alvarado, WEIGHT INSPECTOR.OPTICAL SALES ASSOCIATE [address] [place] [address] PCP - General Nurse Practitioner 10/27/24 Blanquita Hargrove RN [address] [facility] [place] [address] Specialty Lot Worker Hematology/Oncology 11/29/24 Kvng Perez MD [address] [place] [address] [place], [place] [id number] Physician Hematology/Oncology 11/29/24 Annel Alas LSW General Freight Agent 01/08/25 Ricardo Alva RN Specialty Lot Worker Hospice & Palliative Medicine 01/23/25 Kisha Craig, WEIGHT INSPECTOR.OPTICAL SALES ASSOCIATE [address] [facility] [place] [address] Hospice & Palliative Medicine 01/23/25 documented as of this encounter
--- OUTSIDE RECORDS SUMMARY | 2025-02-18 17:42 | XMS_ITS | Patient Health Record ---
Author Organization The [facility] in [place] Address [address] [place] [address] Care Team Providers Care Truck Sales Representative Name Role Phone Brandi Fiore Primary Care Provider Unavail able José Luis Ragland Unavailable [phone] Chip Carbajal Unavailable [phone] Allergies Allergen (clinical drug ingredient) Drug/Non Drug Allergy documented on EMR Reaction Allergy Type Onset Date Status sulfamethoxazole / trimethoprim Bactrim fluid retention Drug Allergy Active codeine Codeine sweating Drug Allergy Active Results Component Value Reference Range Notes XR chest 2V Reviewed date:07/27/2024 09:45:36 AM Interpretation: Performing Lab: Notes/Report: Source Facility: [place] [address] XRay Report Signed Patient: FRANTZ ROA II MR#: [id number] : 1960 Acct:[id number] Age/Sex: 63 / M ADM Date: 06/22/24 Loc: RAD Attending Dr: JOSÉ LUIS RAGLAND Ordering Physician: JOSÉ LUIS RAGLAND Date of Service: 06/22/24 Procedure(s): XR chest 2V Accession Number(s): [id number] cc: JOSÉ LUIS RAGLAND [place] [address] Patient Name: FRANTZ ROA MRN: [id number] date: 1960 Sex: M Assigned Patient Location: RAD Current Patient Location: RAD Accession/Order Number: [id number] Exam Date: 06/22/2024 11:05 Report Date: 06/22/2024 [...] Signed By: 06/22/24 1250 DD/ 1248 TD/TT: Dispatcher Radioactive Waste Disposal: [place] [address] XRay Report Signed Patient: MICHAEL ROA II MR#: [id number] : 1960 Acct:[id number] Age/Sex: 63 / M ADM Date: 06/22/24 Loc: RAD Attending Dr: RUDOLPH RAGLAND Ordering Physician: JOSÉ LUIS RAGLAND Date of Service: 06/22/24 Procedure(s): XR chest 2V Accession Number(s): [id number] cc: JOSÉ LUIS RAGLAND [place] [id number] Patient Name: FRANTZ ROA MRN: [id number] date: 1960 Sex: M Assigned Patient Loc ation: RAD Current Patient Loca tion: RAD Accession/Order Numb er: [id number] Exam Date: 06/22/2024 11:05 Report Date: 06/22/2024 [...] Signed By: 06/22/24 1250 DD/ 1248 TD/TT: Dispatcher [employer] Dis[employer]: ECG 12 lead Reviewed date:10/16/2024 09:53:23 AM Interpretation: Performing Lab: Notes/Report: Source Facility: [place] [address] [place] [address] Electrocardiograph Report Signed Patient: FRANTZ ROA II MR#: [id number] : 1960 Acct:[id number] Age/Sex: 63 / M ADM Date: 10/12/24 Loc: PST Attending Dr: Chip Carbajal D.O. Ordering Physician: Chip Carbajal D.O. 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 Measurements Intervals [place] Rate: 93 P: 32 [place]: 168 QRS: 33 QRSD: 133 T: 5 QT: 359 QTc: 447 Interpretive Statements SINUS RHYTHM RIGHT BUNDLE BRANCH BLOCK [120+ ms QRS DURATION, UPRIGHT V1, 40+ ms S IN I/aVL/V4/V5/V6] Abnormal ECG Compared to ECG 10/06/2024 19:04:05 Ectopic atrial tachycardia, unifocal no longer present Electronically Signed On 10-12-2024 23:28:47 EDT by AGATHA SALAZAR M.D. Dictated By: AGATHA SALAZAR Signed By: 10/12/24 8829 DD/ 1257 TD/TT: Dispatcher Radioactive Waste Disposal: [place] [address] Electrocardiograph Report Signed Patient: MICHAEL ROA II MR#: [id number] : 1960 Acct:[id number] Age/Sex: 63 / M ADM Date: 10/12/24 Loc: PST Attending Dr: Chip Carbajal D.O. Ordering Physician: Chip Carbajal D.O. 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 Measurements Intervals [place] Rate: 93 P: 32 AZ: 168 QRS: 33 QRSD: 133 T: 5 [...] Signed By: 10/12/24 2329 DD/ 1257 TD/TT: Dispatcher [employer] Dis[employer]: CT chest wo con Reviewed date:10/09/2024 06:58:44 AM Interpretation: Performing Lab: Notes/Report: Source Facility: [facility]-[address] [place] [address] [place] [address] CT Scan Report Signed Patient: FRANTZ ROA II MR#: [id number] : 1960 Acct:[id number] Age/Sex: 63 / M ADM Date: 10/06/24 Loc: CT Attending Dr: Chip Carbajal D.O. Ordering Physician: Chip Carbajal D.O. Date of Service: 10/06/24 Procedure(s): CT chest wo con Accession Number(s): [id number] cc: JOSÉ LUIS RAGLAND [address] [address] Patient Name: FRANTZ ROA MRN: [id number] date: 1960 Sex: M Assigned Patient Location: CT Current Patient Location: CT Accession/Order Number: [id number] Exam Date: 10/06/2024 10:28 Report Date: 10/06/2024 [...] Jr., D.O. 10/06/2024 10:33 AM Dictation Location: [place] [address] Electronically authenticated by: [id number] Y Date: 10/06/2024 10:33 Dictated By: Neftali Lewis M.D. Signed By: 10/06/24 1035 DD/ 1033 TD/TT: Dispatcher Radioactive Waste Disposal: [place] [address] CT Scan Report Signed Patient: MICHAEL ROA II MR#: [id number] : 1960 Acct:[id number] Age/Sex: 63 / M ADM Date: 10/06/24 Loc: CT Attending Dr: Chip Carbajal D.O. Ordering Physician: Chip Carbajal D.O. Date of Service: 10/06/24 Procedure(s): CT [facility] wo con Accession Number(s): [id number] cc: JOSÉ LUIS RAGLAND [place] [address] Patient Name: FRANTZ ROA MRN: [id number] date: 1960 Sex: M Assigned Patient Loc ation: CT Current Patient Loca tion: CT Accession/Order Numb er: [id number] Exam Date: 10/06/2024 10:28 Report Date: 10/06/2024 [...] Jr., D.O. 10/06/2024 10:33 AM Dictation Location: [place] [address] Electronically authenticated by: [id number] Y Date: 10/06/2024 10:33 Dictated By: Neftali Lewis M.D. Signed By: 10/06/24 1035 DD/ 1033 TD/TT: Dispatcher Radio[employer] Disposal: PET/CT Skull Base to Mid-Thi gh Reviewed date:10/23/2024 12:37:26 PM Interpretation: Performing Lab: Notes/Report: CT Chest w/o contrast Reviewed date:10/09/2024 09:52:28 AM Interpretation: Performing Lab: Notes/Report: Blood Culture 2 Reviewed date:11/09/2024 06:10:20 PM Interpretation: Performing Lab: Notes/Report: L AC [facility] , Blood Culture 2 See Below For Report Blood Culture 2 NG5D NO GROWTH AT 5 DAYS.^NO GROWTH AT 5 DAYS. Performing Lab: see note ML - [facility] LB Blood Culture 1 Reviewed date:11/09/2024 06:10:20 PM Interpretation: Performing Lab: Notes/Report: [facility] , Blood Culture 1 See Below For Report Blood Culture 1 NG5D NO GROWTH AT 5 DAYS.^NO GROWTH AT 5 DAYS. Performing Lab: see note - [facility] LB LACTATE or LACTIC ACID Reviewed date:11/04/2024 11:42:44 AM Interpretation: Performing Lab: Notes/Report: [facility] , Lactate/Lactic Acid 2.1 0.4-2.0 mmol/L RESULT S CALLED TO billy vásquez rn Performing Lab: see note - [facility] LB LACTATE or LACTIC ACID Reviewed date:11/04/2024 11:42:44 AM Interpretation: Performing Lab: Notes/Report: Comment From ER blood please [facility] , Lactate/Lactic Acid 4.2 0.4-2.0 mmol/L RESULT S CALLED TO Billy Vásquez RN Performing Lab: see note - [facility] LB LACTATE or LACTIC ACID Reviewed date:11/06/2024 03:28:57 PM Interpretation: Performing Lab: Notes/Report: [facility] , Lactate/Lactic Acid 2.4 0.4-2.0 mmol/L RESULT S CALLED TO BILLY VÁSQUEZ RN Performing Lab: see note - [facility] LB XR chest 2V Reviewed date:11/06/2024 03:28:57 PM Interpretation: Performing Lab: Notes/Report: Source Facility: [place] [address] [place] [address] XRay Report Signed Patient: FRANTZ ROA II MR#: [id number] : 1960 Acct:[id number] Age/Sex: 64 / M ADM Date: 11/03/24 Loc: [place] 223-[address]: Ochoa Owens M.D. Ordering Physician: Mando Ward M.D. Date of Service: 11/06/24 Procedure(s): XR chest 2V Accession Number(s): [id number] cc: Mando Ward M.D.; BRANDI COLLINS [place] [address] Patient Name: FRANTZ ROA MRN: [facility]:[id number] date: 1960 Sex: M Assigned Patient Location: MS Current Patient Location: [place] Accession/Order Number: [id number] Exam Date: 11/06/2024 12:21 Report Date: 11/06/2024 [...] Lainez M.D. 11/06/2024 12:22 PM Dictation Location: [place] [address] Electronically authenticated by: [id number] Y Date: 11/06/2024 12:22 Dictated By: Jose Antonio Lainez M.D. Signed By: 11/06/24 1225 DD/ 1222 TD/TT: Dispatcher Radioactive Waste Disposal: [place] [address] XRay Report Signed Patient: MICHAEL ROA II MR#: [id number] : 1960 Acct:[id number] Age/Sex: 64 / M ADM Date: 11/03/24 Loc: [place] 223-[address]: Ochoa thakkar M.D. Ordering Physician: Mando Ward M.D. Date of Service: 11/06/24 Procedure(s): XR chest 2V Accession Number(s): [id number] cc: Mando Ward M.D. ; BRANDI COLLINS [place] [address] Patient Name: FRANTZ ROA MRN: [id number] date: 1960 Sex: M Assigned Patient Loc ation: MS Current Patient Loca tion: MS Accession/Order Numb er: [id number] Exam Date: 11/06/2024 12:21 Report Date: 11/06/2024 [...] Lainez M.D. 11/06/2024 12:22 PM Dictation Location: [place] [address] Electronically authenticated by: [id number] Y Date: 11/06/2024 12:22 Dictated By: Jose Antonio Lainez M.D. 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 Diagnosis 1 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) Referral Organization [facility] Referring Provider First Name Chip Referring Provider Last Name Braden Referring Provider Speciality Pulmonolog y Referred Provider Gaetano Nathan Referred Provider Specialty Hematology/O ncology General Notes Stanford Chan 10/23 02:43:00 PM >Images pushed to [facility] via PACS.Rocio Riley 10/23/2024 04:29:01 PM >Referral faxed to [facility].Rocio Riley 10/24/2024 01:11:14 PM >I called and spoke with Benita at [facility] Oncology to find out if the referral was received and if the patient has been scheduled? [facility] states the patient has been contacted and is scheduled for 10/27/2024 at 0900.Rocio Riley 10/30/2024 08:53:47 AM >[facility] CONSULT RECEIVED VIA FAX. SCANNED TO DR. CARBAJAL. Referral Priority Routine Referral Appointment Date 10/27/2024 Medications Medication SIG (Take, Route, Frequency, Duration) Notes Start Date End Date Status Albuterol Sulfate HFA 108 (90 Base) MCG/ACT INHALE 1 PUFF INTO THE LUNGS EVERY 4 HOURS NEEDED for 25 Active Meclizine HCl 25 MG TAKE 1 TABLET [...] BY MOUTH EVERY DAY AT BEDTIME NEEDED for 90 Active Zinc 50 MG 1 capsule Orally [...] Administration Date Status Comme nts Flu, Flublok (18661) 18 yrs and older, single-dose syringe () Unknown 03/31/2024 Administered Flu, Flublok (19587) 18yr+, single-dose (6337-9190) Unknown 03/16/2022 Administered Flu, Flublok (82183) 18yr+, single-dose (8594-4517) Unknown 04/21/2023 Administered Flu, Flucelvax (21766) 4 yrs and older, multi-dose vial (4461-7472) IM Intramuscular 04/02/2020 Administered Flu, Fluzone (87399) 6-35mo, multi-dose vial (4987-0389) Unknown 03/14/2017 Administered Flu, unspecified Unknown 04/07/2021 [...] in 2016 , retired. Quit smoking in 2017 , retired. Quit smoking in 2016 , retired. Quit smoking in 2016 , retired. Quit smoking in 2016 , retired. Quit smoking in 2016 Problems Problem Type SNOMED Code ICD Code Onset Dates Problem Status W/U Status Risk Notes Problem 400230104 Sleep disorder, unspecified (G47.9) Active confirmed Problem 68313051 Other chronic pain (G89.29) Active confirmed Problem Hypertension (22233921) HTN (hypertension) (I10) Active confirmed Problem 11964476 Essential hypertension (I10) Active confirmed Problem 606484746 BMI 33.0-33.9,adult (Z68.33) Active confirmed Problem Leukocytosis (707180492) Leukocytosis (D72.829) Active confirmed Problem Lung cancer, lower lobe (C34.30) Active confirmed Problem Ex-tobacco user (finding) (673178436) History of tobacco abuse (Z87.891) Active confirmed Problem History of influenza (923522343) History of influenza (Z87.09) Active confirmed Problem 847394315 Acute gout of left foot, unspecified cause (M10.9) Active confirmed Problem 796126049 Chronic gout without tophus, unspecified cause, unspecified site (M1A.9XX0) Active confirmed Problem 46325866 Kidney stone on right side (N20.0) Active confirmed Problem Primary malignant neoplasm of lung (92747917) 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) Active confirmed Problem History of COVID-19 (438632379220056 105) History of COVID-19 (Z86.16) Active confirmed Vital Signs Heart Rate 92 /min 11/07/2024 Temperature 96.8 degrees Fahrenheit 11/07/2024 Respiratory Rate 18 /min 11/07/2024 Blood pressure diastolic 77 mm Hg 11/07/2024 Oximetry 95 % 11/07/2024 Height 68 in 11/07/2024 Blood pressure systolic 130 mm Hg 11/07/2024 Weight 210.8 lbs 11/07/2024 BMI 32.05 kg/m2 11/07/2024 Procedures Procedure Date Ordered Date Performed Result Body Sit e Bronchoscopy (Bronchoscopy/L john BX, each) 10/09/2024 10/16/2024 N/A Encounters Encounter Location Date Provider Diagnosis [facility] [address] [place] [address] 06/21/2024 José Luis Ragland Screening for colon cancer Z12.11 ; Encounter for general adult medical examination without abnormal findings Z00.00 ; Chronic cough R05.3 ; Essential hypertension I10 and Sleep disorder, unspecified G47.9 [facility] [address] [place] [address] 07/25/2024 José Luis Ragland Chronic cough R05.3 ; Essential hypertension I10 and Sleep disorder, unspecified G47.9 [facility] [address] [place] [address] 09/25/2024 Chip Samsa Chronic cough R05.3 ; History of tobacco abuse Z87.891 ; History of COVID-19 Z86.16 and History of influenza Z87.09 [facility] [address] [place] [address] 10/09/2024 Chip Samsa Chronic cough R05.3 ; Right lower lobe lung mass R91.8 ; History of tobacco abuse Z87.891 ; History of COVID-19 Z86.16 and History of influenza Z87.09 [facility] [address] [place] [facility] [place] [address] 09/13/2024 José Luis Ragland [facility] [address] [place] [place] [address] 09/21/2024 [facility] [address] [place] [place] [address] 10/16/2024 [facility] [address] [place] [place] [address] 10/09/2024 [facility] [address] [place] [address] 10/11/2024 [facility] [address] [place] [address] 10/17/2024 [facility] [address] [place] [address] 10/23/2024 [facility] [address] [place] [place] [address] 10/23/2024 [facility] Squamous cell carcinoma of bronchus of right lung C34.91 ; Pneumonitis due to inhalation of food and vomit J69.0 and History of tobacco abuse Z87.891 [facility] [address] [place] [place] [address] 11/07/2024 [facility] Squamous cell carcinoma of bronchus of right lung C34.91 and History of tobacco abuse Z87.891 Assessments Encounter Date Diagnosis (ICD Code) Assessment Notes Treatment Notes Treatment Clinical Notes Section Notes 06/21/2024 Screening for colon cancer (ICD-10 - Z12.11) 06/21/2024 Encounter for general adult medical examination without abnormal findings (ICD-10 - Z00.00) 07/25/2024 Chronic cough (ICD-10 - R05.3) CXR [...] maintenance durvalumab. He has been referred to [facility] interventional pulmonology in an attempt to remove [...] Z87.891) 2ppd x 37 years, quit 12/201610/23/2024 Squamous cell carcinoma of bronchus of right [...] oncology. Patient voiced he wanted referral to [facility]. Referral was placed to them. Regarding hemoptysis, [...] will see if an internal referral to [facility] interventional pulmonology can be made. If not, I can place one. He continues to lose weight. He was 201.8# on 10/09/2024 - today (10/23/2024), he is 193.6#. There is significant mediastinal lymphadenopathy which appears to be compressing the mid-esophagus, leading to esophgaela dysphagia, limiting further his caloric intake. Discussed healthy diet, consider Ensure or Boost. 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 Will have him [...] disorder, unspecified (ICD-10 - G47.9) Continue melatonin 06/21/2024 Chronic cough (ICD-10 - R05.3) [...] ACCESS PPO PLUS LOCAL PLAN [address] [place] [address] [id number] Frantz Roa Self - patient is the [...] 05/17/19 Bronchoscopy 10/17/2024 Hospitalization History Reason Date(Month/Year) Syncope-[facility] 11/03/2024 Lung mass/Hypoxia-[facility] 10/06/2024
--- OUTSIDE RECORDS SUMMARY | 2025-02-18 17:42 | XMS_ITS | Clinical Summary ---
Author Organization [facility] Address [address] [place] [address] Phone Care Team Providers Care Reports Analyst Name Role Phone Unavailable Primary Care Provider Unavailabl e Encounters Date Type Department Care Team Description 01/16/[address] [facility] [address] [place] [address] Scanning, Generic Provider from Last 3 Months Social History Tobacco Use Types Packs/Day Years Used Date Smoking Tobacco: Never Assessed Comments Unknown Sex and Gender Information Value Date Recorded Sex Assigned at Not on file Legal Sex Unknown 01/15/2025 3:47 PM EDT Gender Identity Not on file Sexual Orientation Not on file Plan of Treatment Health Maintenance Due Date Last Done Comments CT Colonography 1960 Colonoscopy 1960 Colorectal Cancer Screening 1960 FIT-DNA (Cologuard) 1960 FIT 1960 HIV Screening 1960 Lipid Panel 1960 Sigmoidoscopy 1960 Yearly Adult Physical 1960 MMR Vaccines (1 of 1 - Stand john series) 1961 Diabetes Screening 11/03/1979 Hepatitis C Screening 11/03/1979 Cervical Cancer Screening 1982 HPV/Cotest 1982 Pap Smear 1982 DTaP/Tdap/Td Vaccines (1 - Tdap) 11/03/1983 Mammogram 2001 PSA Prostate Cancer Screening 11/03/2011 Pneumococcal Vaccine (1 of 1 - PCV) 11/03/2011 Zoster Vaccines (1 of 2) 11/03/2011 COVID-19 Vaccine (1 - 2023-2 5 season) 2025 Influenza Vaccine (#1) 2025 RSV High Risk: (Elderly (60+ ) or Population) (1 - 1-dose 75+ series) 2036 HIB Vaccines Aged Out No longer eligi ble based on patient's age to complete this topic HPV Vaccines Aged Out No longer eligi ble based on patient's age to complete this topic Hepatitis A Vaccines Aged Out No long er eligible based on patient's age to complete this topic Hepatitis B Vaccines Aged Out No long er eligible based on patient's age to complete this topic IPV Vaccines Aged Out No longer eligi ble based on patient's age to complete this topic Meningococcal Vaccine Aged Out No marlee juli eligible based on patient's age to complete this topic Rotavirus Vaccines Aged Out No longer eligible based on patient's age to complete this topic Procedures Procedure Name Priority Date/Time Associated Diagnosis Comments ECHOCARDIOGRAM 01/16/2025 from Last 3 Months Results * Echocardiogram (01/16/2025) Narrative 01/16/2025 Ordered by an unspecified provider. Generic Provider Scanning CV ECHO PROCEDURES Fin al Result from Last 3 Months [facility]
--- OUTSIDE RECORDS SUMMARY | 2025-02-18 17:42 | XMS_ITS | Clinical Summary ---
Author Organization [facility] Address [address] [place], [place] [id number] Care Team Providers Care Adjunct Art History Instructor Name Role Phone Brandi Alvarado TIRE FABRIC INSPECTOR.DIRECTOR OF LABORATORY OPERATIONS Primary Care Provider Blanquita Hargrove RN Unavailable [phone] Kvng Perez MD Unavailable [phone] Annel Alas Unavailable Unavailable Ricardo Alva RN Unavailable Unava ilable Kisha Craig TIRE FABRIC INSPECTOR.DIRECTOR OF LABORATORY OPERATIONS Unavailable + Allergies Active Allergy Reactions Criticality Noted Date Comments Codeine Other: See Comments Low 10/25/2024 sweats Cremophor El (Polyethoxlated [place] Oil) Anaphylaxis 01/08/2025 Polysorbate 80 Anaphylaxis 01/08/2025 Sulfamethoxazole Other: See Comments,Unknown 10/25/2024 Urinary retention Sulfamethoxazole-Trimeth oprim Other: See Comments 12/17/2016 Paclitaxel Other: See Comments High 01/08/2025 Flush (purple in color), dizzy, hypotensive, Shortness of Breath, diaphoretic Medications Benzonatate 200 mg capsuleIndicat ions:cough Take 200 mg by mouth three times a day as needed for cough. 10/24/19 25 Active metoprolol succinate ER (TOPROL XL) 25 mg 24 hr tablet Take 25 mg by mouth once daily. 06/29/19 24 Active Acetaminophen 500 mg cap Take 1,000 [...] 6 hours as needed. 100 tablet 2 5 9:26 AM EDT 11/28/19 25 Active ondansetron (ZOFRAN) 8 mg tablet Take 1 tablet by mouth every 8 hours as needed for nausea/vomiti ng. 90 tablet 2 5 9:26 AM EDT 11/28/19 25 Active albuterol HFA (PROVENTIL HFA, VENTOLIN HFA) 90 mcg/actuation inhaler Inhale 2 puffs as instructed every 4 hours as needed for wheezing/shor tness of breath. 09/14/19 25 Active sennosides-doc usate sodium (SENNA PLUS) 8.6-50 mg capsule Take 1 capsule by mouth two times a day as needed for constipation. Active esomeprazole (NEXIUM) 40 mg capsule Take 40 mg by mouth. 12/30/19 25 Active amoxicillin-cl avulanate potassium (AUGMENTIN) 875-125 mg per tablet Take 1 tablet by mouth two times a day. Active sertraline (ZOLOFT) 50 mg tablet Take 50 mg by mouth once daily. Active Dextromethorph an-guaiFENesin (MUCINEX FAST-MAX DM MAX) 5-100 mg/5 mL liqd Take by mouth as needed. Active allopurinol (ZYLOPRIM) 300 mg tablet Take 300 mg by mouth once daily. Active oxyCODONE IR (ROXICODONE) 5 mg immediate release tabletIndicati ons:Malignant neoplasm of lower lobe of right lung (HCC),Neoplasm related pain,SOB (shortness of breath) Take 1 tablet by mouth every 4 hours as needed for pain for up to 30 days. 180 tablet 01/24/20 25 025 Active benzonatate (TESSALON PERLE) 100 mg capsuleIndicat ions:Chronic cough Take 2 capsules by mouth three times a day as needed. 180 capsule 3 01/24/20 25 025 Active mirtazapine (REMERON) 7.5 mg tabletIndicati ons:Anorexia Take 1 tablet by mouth daily at bedtime. 90 tablet 01/24/20 25 025 Active colchicine 0.6 mg tablet 01/31/20 Active chlorproMAZINE (THORAZINE) 25 mg tablet Take 1 tablet by mouth three times a day as needed for up to 10 days. 30 tablet 02/09/20 Active midodrine (PROAMATINE) 2.5 mg tablet TAKE 1 TABLET BY MOUTH THREE TIMES A DAY 270 tablet 1 02/14/20 25 Active Ipratropium [place] (ATROVENT) 21 mcg (0.03 %) nasal sprayIndicatio ns:Rhinorrhea USE 2 SPRAYS IN THE NOSE TWO TIMES A DAY. 90 mL 2 02/15/20 Active HERBAL DRUGS MISC 1 capsule once daily. Moringa/Sours op 025 Discontinued OTC PRODUCT THC 10mg am and 5mg with lunch and supper - appetite, pain, energy 025 Discontinued diphenhydrAMIN E (BENADRYL) 25 mg capsule Take 25 mg by mouth. 12/06/19 025 Discontinued reishi mushroom extract 188 mg cap Take by mouth. 025 Discontinued megestrol (MEGACE) 400 mg/10 mL (40 mg/mL) suspension Take 10 mL by mouth two times a day. 600 mL 01/03/20 025 Discontinued clindamycin (CLEOCIN) 300 mg capsule 01/07/20 025 Discontinued(Di scontinued by Patient) cefdinir (OMNICEF) 300 mg capsule 01/07/20 25 025 Discontinued(Di scontinued by Patient) midodrine (PROAMATINE) 2.5 mg tablet Take 1 tablet by mouth three times a day. 90 tablet 01/19/20 25 025 Discontinued nystatin (MYCOSTATIN) 100,000 unit/mL suspension Take 5 mL by mouth four times daily for 14 days. Swish and swallow. 280 mL 01/19/20 25 025 oxyCODONE IR (ROXICODONE) 5 mg immediate release tabletIndicati ons:Malignant neoplasm of lower lobe of right lung (HCC) Take 1 tablet by mouth every 6 hours as needed for pain for up to 14 days. 56 tablet 01/19/20 25 025 Discontinued Ipratropium [place] (ATROVENT) 21 mcg (0.03 %) nasal sprayIndicatio ns:Rhinorrhea Use 2 sprays in the nose two times a day. 11 mL 3 01/24/20 25 025 Discontinued baclofen 10 mg tablet Take 1 tablet by mouth three times a day as needed for up to 10 days. 30 tablet 02/07/20 25 025 Hospital, Clinic, or Other Facility Administered Medication Ordered Dose Route Frequency Start Date End Date Status NaCl 0.9% 1,000 mL iv bolus 1000 mL IV ONCE 01/26/2025 01/27/20 Ended Active Problems Problem Noted Date Diagnosed Date Dehydration 01/24/2025 Malignant neoplasm of lower lobe of right lung 0 11/17/2024 Calcifying tendinitis of shoulder 03/25/2006 Disorders of bursae and tend ons in shoulder region, unspecified 03/25/2006 Lesion of ulnar nerve 03/25/2006 Carpal tunnel syndrome 03/25/2006 Encounters Date Type Department Care Team Description 02/16/2025 11:45 AM EDT Nurse Visit Radiation Oncology [address] [place] [address] [place] [address] Nurse Octavio Wallt Malignant neoplasm of lower lobe of right lung (HCC) (Primary Dx) 02/15/2025 11:45 AM EDT Nurse Visit Radiation Oncology [address] [place] [address] [place] [address] Nurse Mae Radt Malignant neoplasm of lower lobe of right lung (HCC) (Primary Dx) 02/15/2025 Telephone Hematology/Oncolog y [address] [place] [address] [place] [address] Kvng Perez MD FMGA Paperwork 02/15/2025 Clinical Document [facility] [place] [address] Provider, Ccf 02/14/2025 10:00 AM EDT Visit (SP) Office Hematology/Oncolog y [address] [place] [address] Tawny Wong APRN.DIRECTOR OF LABORATORY OPERATIONS Malignant neoplasm of lower lobe of right lung (HCC) (Primary Dx); Encounter for antineoplastic chemotherapy; Chemotherapy-induced fatigue; Weakness; Anemia due to antineoplastic chemotherapy; Protein-calorie malnutrition, unspecified severity (HCC) 02/14/2025 9:30 AM EDT Nurse Visit Radiation Oncology [address] [place] [address] Nurse Mae Radt Malignant neoplasm of lower lobe of right lung (HCC) (Primary Dx) 02/14/2025 9:30 AM EDT Office Visit Radiation Oncology [address] [place] [address] Ezra Moreno MD Malignant neoplasm of lower lobe of right lung (HCC) (Primary Dx) 02/14/2025 Telephone Cancer Appts [address] [place] [address] Gaetano Nathan MD Future Appointment 02/14/2025 Refill Palliative Medicine [address] [place] [address] Kisha Craig APRN.DIRECTOR OF LABORATORY OPERATIONS Med Change Request 02/14/2025 Telephone Radiation Oncology [address] [place] [address] Ezra Moreno MD Financial Assistance 02/14/2025 Results Follow-Up Gynecology Oncology [address] [place] [address] Kvng Perez MD 02/14/2025 Travel 02/13/2025 1:00 PM EDT Infusion Center Hematology/Oncolog y [address] [place] [address] [place] [address] Dehydration (Primary Dx) 02/13/2025 11:45 AM EDT Nurse Visit Radiation Oncology [address] [place] [address] Nurse Mae Radt Malignant neoplasm of lower lobe of right lung (HCC) (Primary Dx); Dehydration 02/13/2025 Telephone Hematology/Oncolog y [address] [place] [address] [place] [address] Blanquita Hargrove RN Care Coordination (Treatment plan) 02/10/2025 Refill Hematology/Oncolog y [address] [place] [address] [place] [address] Kvng Perez MD Med Change Request 02/09/2025 11:45 AM EDT Nurse Visit Radiation Oncology [address] [facility] [facility] [place] [address] Mae, Nurse Radt Malignant neoplasm of lower lobe of right lung (HCC) (Primary Dx) 02/09/2025 10:30 AM EDT Infusion Center Hematology/Oncolog y [address] [place] [address] Malignant neoplasm of lower lobe of right lung (HCC) (Primary Dx) 02/08/2025 1:00 PM EDT Infusion Center Hematology/Oncolog y [address] [place] [address] Malignant neoplasm of lower lobe of right lung (HCC) (Primary Dx) 02/08/2025 11:45 AM EDT Nurse Visit Radiation Oncology [address] [facility] [facility] [place] [address] Mae, Nurse Radt Malignant neoplasm of lower lobe of right lung (HCC) (Primary Dx) 02/08/2025 Telephone Hematology/Oncolog y [facility] [place] [address] Blanquita Hargrove, RN Care Coordination (Persistent hard hiccups) 02/07/2025 1:00 PM EDT Infusion Center Hematology/Oncolog y [facility] [place] [address] Malignant neoplasm of lower lobe of right lung (HCC) (Primary Dx) 02/07/2025 12:00 PM EDT Office Visit Radiation Oncology [address] [facility] [place] [address] Ezra Moreno MD 02/07/2025 11:45 AM EDT Nurse Visit Radiation Oncology [address] [facility] [address] Mae, Nurse Radt Malignant neoplasm of lower lobe of right lung (HCC) (Primary Dx) 02/06/2025 1:00 PM EDT Infusion Center Hematology/Oncolog y [facility] [place] [address] Malignant neoplasm of lower lobe of right lung (HCC) (Primary Dx) 02/06/2025 12:30 PM EDT Visit (SP) Office Hematology/Oncolog y [facility] [place] [address] Madison Gagnon, LMMaria A Muscle soreness (Primary Dx) 02/06/2025 11:45 AM EDT Nurse Visit Radiation Oncology [address] [place] [address] [place] [address] Mae, Nurse Radt Malignant neoplasm of lower lobe of right lung (HCC) (Primary Dx) 02/06/2025 Telephone Hematology/Oncolog y [address] [place] [address] [place] [address] Blanquita Hargrove, RN Care Coordination (Med request) 02/05/2025 3:00 PM EDT Nurse Visit Radiation Oncology [address] [place] [address] [place] [address] Mae, Radt Malignant neoplasm of lower lobe of right lung (HCC) (Primary Dx) 02/05/2025 9:45 AM EDT Infusion Center Hematology/Oncolog y [address] [place] [address] [place] [address] Malignant neoplasm of lower lobe of right lung (HCC) (Primary Dx) 02/05/2025 9:20 AM EDT Visit (SP) Office Hematology/Oncolog y [address] [place] [address] [place] [address] Kvng Perez MD Malignant neoplasm of lower lobe of right lung (HCC) (Primary Dx) 02/02/2025 12:15 PM EDT Infusion Center Hematology/Oncolog y [address] [place] [address] [place] [address] Dehydration (Primary Dx) 02/02/2025 11:45 AM EDT Nurse Visit Radiation Oncology [address] [place] [address] [place] [address] Mae, Nurse Radt Malignant neoplasm of lower lobe of right lung (HCC) (Primary Dx) 02/02/2025 Travel 02/01/2025 11:45 AM EDT Nurse Visit Radiation Oncology [address] [place] [address] [place] [address] Mae Nurse Radt Malignant neoplasm of lower lobe of right lung (HCC) (Primary Dx) 01/31/2025 12:00 PM EDT Office Visit Radiation Oncology [address] [place] [address] [place] [address] Ezra Moreno MD 01/31/2025 11:45 AM EDT Nurse Visit Radiation Oncology [address] [facility] [place] [address] Nurse Mae Radt Malignant neoplasm of lower lobe of right lung (HCC) (Primary Dx) 01/31/2025 Orders Only Hematology/Oncolog y [address] [facility] [place] [address] Rosalva Cohen, [facility] 01/30/2025 11:45 AM EDT Nurse Visit Radiation Oncology [address] [facility] [place] [address] Mae Nurse Radt Malignant neoplasm of lower lobe of right lung (HCC) (Primary Dx) 01/30/2025 10:00 AM EDT Visit (SP) Office Hematology/Oncolog y [address] [facility] [place] [address] Madison Gagnon LMT Muscle soreness (Primary Dx) 01/30/2025 Orders Only Hematology/Oncolog y [address] [facility] [place] [address] Rosalva Cohen, [facility] 01/30/2025 Telephone Radiation Oncology [address] [facility] [facility] [place] [address] Kvng Perez MD Patient Question 01/29/2025 11:45 AM EDT Nurse Visit Radiation Oncology [address] [facility] [facility] [place] [address] Nurse Mae Radt Malignant neoplasm of lower lobe of right lung (HCC) (Primary Dx) 01/26/2025 1:00 PM EDT Nurse Visit Hematology/Oncolog y [address] [facility] [place] [address] Umm Ms Nurse Nick UTI symptoms (Primary Dx); Fever in adult 01/26/2025 12:15 PM EDT Infusion Center Hematology/Oncolog y [address] [place] [address] Fever in adult 01/26/2025 11:45 AM EDT Nurse Visit Radiation Oncology [address] [facility] [place] [address] Moffat, Nurse Radt Malignant neoplasm of lower lobe of right lung (HCC) (Primary Dx) 01/26/2025 10:34 AM EDT - 01/26/2025 11:59 PM EDT Hospital Encounter Radiology [address] [place] [address] Fever in adult [R50.9] Discharge Disposition: Home 01/26/2025 Telephone Hematology/Oncolog y [address] [place] [address] [place] [address] Kvng Perez MD FMLA Paperwork 01/26/2025 Telephone Radiation Oncology [address] [place] [address] [place] [address] Kvng Perez MD Patient Update; Dizziness 01/25/2025 11:45 AM EDT Nurse Visit Radiation Oncology [address] [place] [address] [place] [address] Nurse Mae Radt Malignant neoplasm of lower lobe of right lung (HCC) (Primary Dx) 01/25/2025 Telephone Radiation Oncology [address] [place] [address] [place] [address] Kvng Perez MD 01/24/2025 1:00 PM EDT Infusion Center Hematology/Oncolog y [address] [facility] [address] Dehydration (Primary Dx); Malignant neoplasm of lower lobe of right lung (HCC) 01/24/2025 12:00 PM EDT Office Visit Radiation Oncology [address] [place] [address] [place] [address] Ezra Moreno MD Malignant neoplasm of lower lobe of right lung (HCC) (Primary Dx) 01/24/2025 11:45 AM EDT Nurse Visit Radiation Oncology [address] [place] [address] [place] [address] Mae Nurse Radt Malignant neoplasm of lower lobe of right lung (HCC) (Primary Dx) 01/24/2025 Orders Only Hematology/Oncolog y [address] [facility] [address] Tawny Wong, TIRE FABRIC INSPECTOR.DIRECTOR OF LABORATORY OPERATIONS Dehydration 01/24/2025 Telephone Radiation Oncology [address] [place] [address] [place] [address] Kvng Perez MD Dehydration; Weakness 01/23/2025 12:30 PM EDT Visit (SP) Office Hematology/Oncolog y [address] [place] [address] [place] [address] Madison Gagnon LMT Muscle soreness (Primary Dx) 01/23/2025 11:45 AM EDT Nurse Visit Radiation Oncology [address] [place] [address] [place] [address] Nurse Mae Radt Malignant neoplasm of lower lobe of right lung (HCC) (Primary Dx) 01/23/2025 8:30 AM EDT Office Visit Palliative Medicine [address] [place] [address] [place] [address] Kisha Craig, TIRE FABRIC INSPECTOR.DIRECTOR OF LABORATORY OPERATIONS Palliative care by specialist (Primary Dx); Malignant neoplasm of lower lobe of right lung (HCC); Neoplasm related pain; Constipation due to opioid therapy; Chronic cough; SOB (shortness of breath); Anorexia; Rhinorrhea 01/23/2025 Patient [facility] Palliative Medicine [address] [place] [address] Ricardo Alva, animal care supervisor information 01/22/2025 10:00 AM EDT Nurse Visit Radiation Oncology [address] [place] [address] [place] [address] Mae, Radt Malignant neoplasm of lower lobe of right lung (HCC) (Primary Dx) 01/19/2025 11:45 AM EDT Nurse Visit Radiation Oncology [address] [place] [address] [place] [address] Nurse Mae Radt Malignant neoplasm of lower lobe of right lung (HCC) (Primary Dx) 01/18/2025 2:00 PM EDT Visit (SP) Office Hematology/Oncolog y [address] [place] [address] [place] [address] Kvng Perez MD Malignant neoplasm of lower lobe of right lung (HCC) (Primary Dx) 01/18/2025 1:30 PM EDT Nurse Visit Radiation Oncology [address] [place] [address] [place] [address] Nurse Mae Radt Malignant neoplasm of lower lobe of right lung (HCC) (Primary Dx) 01/18/2025 12:00 PM EDT Office Visit Radiation Oncology [address] [facility] [address] Ezra Moreno MD Malignant neoplasm of lower lobe of right lung (HCC) (Primary Dx) 01/18/2025 Telephone Radiation Oncology [address] [place] [address] [place] [address] Ezra Moreno MD Patient Update 01/17/2025 H&P External-NonCCF Provider, Tasia PA-C 01/15/2025 8:20 AM EDT Visit (SP) Office Hematology/Oncolog y [address] [facility] [place] [address] Kvng Perez MD Malignant neoplasm of lower lobe of right lung (HCC) (Primary Dx) 01/15/2025 Telephone Hematology/Oncolog y [address] [place], [place] [address] [place] [place] [address] Ileana Bear, PRITI Care Coordination (Hospital Admission) 01/12/2025 12:00 PM EDT Infusion Center Hematology/Oncolog y [address] [place], [place] [address] [place] [address] Malignant neoplasm of lower lobe of right lung (HCC) (Primary Dx) 01/12/2025 11:45 AM EDT Nurse Visit Radiation Oncology [address] [place] [address] [place] [address] Mae, Nurse Radt Malignant neoplasm of lower lobe of right lung (HCC) (Primary Dx) 01/11/2025 12:00 PM EDT Infusion Center Hematology/Oncolog y [facility] [place] [address] Malignant neoplasm of lower lobe of right lung (HCC) (Primary Dx) 01/11/2025 11:45 AM EDT Nurse Visit Radiation Oncology [address] [place] [address] [place] [address] Mae, Nurse Radt Malignant neoplasm of lower lobe of right lung (HCC) (Primary Dx) 01/11/2025 Telephone Hematology/Oncolog y [facility] [place] [address] Blanquita Hargrove RN Care Coordination (C1D1 treatment follow up call) 01/10/2025 1:00 PM EDT Infusion Center Hematology/Oncolog y [address] [facility] [address] Malignant neoplasm of lower lobe of right lung (HCC) (Primary Dx) 01/10/2025 12:00 PM EDT Office Visit Radiation Oncology [address] [place] [address] [place] [address] Ezra Moreno MD Malignant neoplasm of lower lobe of right lung (HCC) (Primary Dx) 01/10/2025 11:45 AM EDT Nurse Visit Radiation Oncology [address] [place] [address] [place] [address] Mae Nurse Radt Malignant neoplasm of lower lobe of right lung (HCC) (Primary Dx) 01/09/2025 12:00 PM EDT Infusion Center Hematology/Oncolog y [address] [place] [address] [place] [address] Malignant neoplasm of lower lobe of right lung (HCC) (Primary Dx) 01/09/2025 11:45 AM EDT Nurse Visit Radiation Oncology [address] [place] [address] [place] [address] Mae Nurse Radt Malignant neoplasm of lower lobe of right lung (HCC) (Primary Dx) 01/09/2025 Telephone Hematology/Oncolog y [address] [place] [address] [place] [address] Neha Goodrich, RN Reduction Plant Supervisor - Other (Etoposide reaction) 01/08/2025 4:45 PM EDT Nurse Visit Radiation Oncology [address] [place] [address] [place] [address] Mae Nurse Radt Malignant neoplasm of lower lobe of right lung (HCC) (Primary Dx) 01/08/2025 4:30 PM EDT Office Visit Radiation Oncology [address] [place] [address] [place] [address] Oswaldo Tripathi MD Malignant neoplasm of lower lobe of right lung (HCC) (Primary Dx) 01/08/2025 10:30 AM EDT Infusion Center Hematology/Oncolog y [address] [place] [address] [place] [address] Malignant neoplasm of lower lobe of right lung (HCC) (Primary Dx) 01/08/2025 10:00 AM EDT Nurse Visit Hematology/Oncolog y [address] [place] [address] Blanquita Hargrove, PRITI Malignant neoplasm of lower lobe of right lung (HCC) (Primary Dx) 01/08/2025 10:00 AM EDT Visit (SP) Office Hematology/Oncolog y [address] [place] [address] Kvng Perez MD Malignant neoplasm of lower lobe of right lung (HCC) (Primary Dx) 01/08/2025 Social Work Hematology/Oncolog y [address] [place] [address] Annel Alas LSW 01/08/2025 Telephone Hematology/Oncolog y [address] [place] [address] Blanquita Hargrove RN Care Coordination (Appointment question) 01/08/2025 H&P External-NonCCF Provider, External, PA-C 01/05/2025 Telephone Hematology/Oncolog y [address] [place] [address] Blanquita Hargrove RN Care Coordination (C1D1 treatment follow up call) 01/05/2025 Telephone Hematology/Oncolog y [address] [place] [address] Blanquita Hargrove RN Care Coordination (Hospital admission) 01/04/2025 Telephone Radiation Oncology [address] [facility] [place] [address] Oswaldo Tripathi MD Patient Update; Future Appointment 01/03/2025 Telephone Hematology/Oncolog y [address] [place] [address] Kvng Perez MD 01/03/2025 H&P External-NonCCF Provider, External, PA-C 01/02/2025 11:00 AM EDT Infusion Center Hematology/Oncolog y [address] [place] [address] Malignant neoplasm of lower lobe of right lung (HCC) (Primary Dx) 01/02/2025 10:40 AM EDT Visit (SP) Office Hematology/Oncolog y [address] [place] [address] Kvng Perez MD Malignant neoplasm of lower lobe of right lung (HCC) (Primary Dx) 01/02/2025 Travel 01/02/2025 Orders Only Hematology/Oncolog y [address] [facility] [place] [address] Kvng Perez MD Malignant neoplasm of lower lobe of right lung (HCC) 12/26/2024 2:30 PM EDT Visit (SP) Office Hematology/Oncolog y [address] [facility] [place] [address] Madison Gagnon LMT Muscle soreness (Primary Dx) 12/26/2024 2:00 PM EDT Visit (SP) Office Hematology/Oncolog y [address] [facility] [place] [address] Kvng Perez MD Malignant neoplasm of lower lobe of right lung (HCC) (Primary Dx) 12/26/2024 Telephone Hematology/Oncolog y [address] [facility] [place] [address] Kvng Perez MD Care Coordination (Potassium Results) 12/26/2024 Travel 12/22/2024 Telephone Hematology/Oncolog y [address] [facility] [facility] [place] [address] Ileana Bear, PRITI Care Coordination (Discharge Follow Up Call) 12/19/2024 H&P External-NonCCF Provider, External, PA-C 12/18/2024 Telephone Radiation Oncology [address] [place] [address] Ezra Moreno MD Future Appointment 12/18/2024 H&P External-NonCCF Provider, External, PA-C 12/18/2024 Telephone Hematology/Oncolog y [address] [facility] [place] [address] Blanquita Hargrove RN Care Coordination (Hospital admission) 12/14/2024 Telephone Radiation Oncology [address] [place] [address] Ezra Moreno MD Patient Update; Appointment 12/12/2024 Telephone Hematology/Oncolog y [address] [facility] [place] [address] Blanquita Hargrove RN Care Coordination (P.T.) 12/11/2024 Clinical [place] [address] Provider, Ccf 12/08/2024 10:00 AM EDT Nurse Visit Radiation Oncology [address] [facility] [address] Mae, Nurse Radt Malignant neoplasm of lower lobe of right lung (HCC) (Primary Dx) 12/08/2024 Radiation Oncology Note Radiation Oncology [address] [facility] [address] Ezra Moreno MD Treatment Planning 12/08/2024 Radiation Oncology Note Radiation Oncology [address] [place] [address] Ezra Moreno MD Simulation Note 12/08/2024 Telephone Hematology/Oncolog y [address] [facility] [address] Blanquita Hargrove RN Care Coordination (Foundation one testing question) 12/08/2024 Telephone Hematology/Oncolog y [address] [place] [address] Blanquita Hargrove RN Care Coordination (results) 12/07/2024 8:00 AM EDT - 12/07/2024 11:59 PM EDT Hospital Encounter Radiology [facility] [address] [place] [address] Malignant neoplasm of lower lobe of right lung (HCC) [C34.31] Discharge Disposition: Home 12/06/2024 H&P External-NonCCF Provider, External, PA-C 12/05/2024 Telephone Hematology/Oncolog y [address] [place] [address] Blanquita Hargrove RN Care Coordination (Clinical update) 11/28/2024 Telephone Radiation Oncology [address] [place] [address] Ezra Moreno MD Patient Update; Future Appointment 11/27/2024 9:00 AM EDT Nurse Visit Hematology/Oncolog y [address] [place] [address] Ranchester, Blanquita G, RN Malignant neoplasm of lower lobe of right lung (HCC) (Primary Dx) 11/27/2024 Telephone Pulmonary Medicine [address] [address] José Antonio Tapia MD 11/27/2024 Telephone Pulmonary Medicine [address] [address] Candice Garay (Pss) Patient Update 11/27/2024 Telephone Hematology/Oncolog y [address] [place] [address] Blanquita Hargrove, RN Care Coordination (Clinical update) 11/27/2024 Refill Hematology/Oncolog y [address] [place] [address] Blanquita Hargrove, PRITI Refill Request; Care Coordination (Treatment prep) 11/23/2024 Orders Only Pulmonary Medicine [address] [place] [address] Alexandre Robertson MD 11/23/2024 Telephone Pulmonary Medicine [address] [address] JuveJanell Medication Request 11/23/2024 Telephone Radiation Oncology [address] [place] [address] Ezra Moreno MD Patient Update; Patient Question 11/23/2024 Results Follow-Up Pulmonary Medicine [address] [place] [address] Alexandre Robertson MD 11/23/2024 Orders Only Pulmonary Medicine [address] [place] [address] Alexandre Robertson MD Pneumonia of right lower lobe due to methicillin resistant Staphylococcus aureus (MRSA) (HCC) (Primary Dx) 11/20/2024 11:30 AM EDT - 11/20/2024 1:30 PM EDT Surgery Admitting [address] [place] [address] Alexandre Robertson MD BRONCHOSCOPY FLEXIBLE ARGON PLASMA COAGULATION 11/20/2024 10:49 AM EDT Anesthesia Event Admitting [address] [place] [address] Azalea Mejía MD Romanauski, Matthew, TIRE FABRIC INSPECTOR.DISEASE INTERVENTION SPECIALIST 11/20/2024 9:51 AM EDT - 11/20/2024 2:51 PM EDT Hospital Encounter Admitting [address] [place] [address] Alexandre Robertson MD 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 Last address used for calculation [...] Mass Index 24.52 02/14/2025 11:20 AM EDT Plan of Treatment Upcoming Encounters Date Type Department Care Team (Latest Contact Info) Description 02/19/2025 11:45 AM EDT Appointment Radiation Oncology [address] [place] [address] Lung 02/19/2025 11:45 AM EDT Nurse Visit Radiation Oncology [address] [place] [address] [place] [address] Mae, Radt [address] [place] [address] [place] [address] pulse monitoring 02/20/2025 10:30 AM EDT Office Visit Palliative Medicine [address] [place] [address] [place] [address] Kisha Craig, TIRE FABRIC INSPECTOR.DIRECTOR OF LABORATORY OPERATIONS [address] [place] [address] 4 week follow up 02/20/2025 11:45 AM EDT Appointment Radiation Oncology [address] [place] [address] [place] [address] Lung- Pall med 10:30 02/20/2025 11:45 AM EDT Nurse Visit Radiation Oncology [address] [place] [address] [place] [address] Mae, Nurse Radt [address] [place] [address] [place] [address] pulse monitoring 02/21/2025 8:00 AM EDT Appointment Radiation Oncology [address] [place] [address] Lung - 845 LAB, 9 [address]ILL[address], 930 CHEMO x6 HRS 02/21/2025 8:45 AM EDT Office Visit [facility] [address] [place] [address] lab follow up and chemotx Cisplatin + IV MAG - PUT PATIENT BACK ON Wednesday02/21/2025 9:00 AM EDT Visit (SP) Office Hematology/Oncology [address] [place] [address] Kvng Perez MD [address] [place] [address] lab follow up and chemotx Cisplatin + IV MAG - PUT PATIENT BACK ON Wednesday02/21/2025 9:30 AM EDT [facility] Hematology/Oncology [address] [place] [address] Mae, Chair [address] [place] [address] lab follow up and chemotx Cisplatin + IV MAG - PUT PATIENT BACK ON Wednesday02/21/2025 11:45 AM EDT Nurse Visit Radiation Oncology [address] [place] [address] Mae, Nurse Radt [address] [place] [address] pulse monitoring 02/21/2025 12:00 PM EDT Office Visit Radiation Oncology [address] [place] [address] Ezra Moreno MD [address] [place] [address] Location: [facility] 02/22/2025 11:45 AM EDT Appointment Radiation Oncology [address] [place] [address] Lung 02/22/2025 11:45 AM EDT Nurse Visit Radiation Oncology [address] [place] [address] Mae Nurse Radt [address] [place] [address] pulse monitoring 05/28/2025 11:30 AM EST Office Visit Radiation Oncology [address] [place] [address] Ezra Moreno MD [address] [place] [address] 3-4 month final radiation follow up Health Maintenance Due Date Last Done Comments Anxiety Screening 11/03/1979 Depression Screening 11/03/1979 HIV Screening 11/03/1979 Hepatitis C Screening 11/03/1979 DTaP,Tdap,Td Vaccine (1 - Tdap) 1980 Pneumococcal Vaccine: 50+ (1 of 2 - PCV) 1980 Shingrix Vaccine (1 of 2) 1980 CT Colonography 2006 Colonoscopy 2006 Fecal Occult Blood 2006 Prostate Cancer Screening Discussion 2006 Sigmoidoscopy 2006 RSV Vaccine (1 - Risk 60-74 years 1-dose series) 2021 Influenza Vaccine (#1) 2025 , 04/21/2023, 03/16/2022, Additional history exists Cologuard (FIT-DNA) 05/27/2025 05/27/2022 Colorectal Cancer Screening 05/27/2025 Lipid Screening 09/30/2025 09/30/2020 Diabetes Screening 02/15/2028 02/14/2025, 0 02/05/2025, 01/24/2025, Additional history exists Medical Devices Implanted Type Area Social Work Assistant Device Identifier Shelf Expiration Date Model / Serial / Lot [id number] Implanted:06/2024 (Quantity not on file) [employer] 7842 / [id number] / [id number] Implanted:06/2024 (Quantity not on file) [employer] 7841 / [id number] / [id number] Implanted:10/13 (Quantity not on file) Pacemaker [employer] [id number] / [id number] / Procedures Procedure Name Priority Date/Time Associated Diagnosis Comments COMPREHENSIVE METABOLIC PANEL Routine 11:10 AM EDT Malignant neoplasm of lower lobe of right lung (HCC) CBC + DIFF Routine 02/14/2025 11:10 AM EDT Malignant neoplasm of lower lobe of right lung (HCC) MAGNESIUM BLD Routine 02/05/2025 9:08 AM EDT Malignant neoplasm of lower lobe of right lung (HCC) COMPREHENSIVE METABOLIC PANEL Routine 9:08 AM EDT Malignant neoplasm of lower lobe of right lung (HCC) CBC + DIFF Routine 02/05/2025 9:08 AM EDT Malignant neoplasm of lower lobe of right lung (HCC) UA DIP, URINE (POC) Routine 01/26/2025 1 :12 PM EDT UTI symptoms Fever in adult BACTERIAL CULTURE, URINE Routine 025 12:31 PM EDT Fever in adult BACTERIAL CULTURE, BLOOD Routine 025 11:18 AM EDT Fever in adult BACTERIAL CULTURE, BLOOD Routine 025 11:05 AM EDT Fever in adult XR CHEST 2V FRONTAL/LAT Routine 01/27/20 10:54 AM EDT Fever in adult STAFF REVIEW Routine 01/24/2025 1:29 PM EDT Malignant neoplasm of lower lobe of right lung (HCC) COMPREHENSIVE METABOLIC PANEL Routine 1:29 PM EDT Malignant neoplasm of lower lobe of right lung (HCC) CBC + DIFF Routine 01/24/2025 1:29 PM EDT Malignant neoplasm of lower lobe of right lung (HCC) EXTERNAL IMAGING 01/17/2025 7:29 AM EDT MAGNESIUM BLD Routine 01/15/2025 8:05 AM EDT Malignant neoplasm of lower lobe of right lung (HCC) COMPREHENSIVE METABOLIC PANEL Routine 8:05 AM EDT Malignant neoplasm of lower lobe of right lung (HCC) CBC + DIFF Routine 01/15/2025 8:05 AM EDT Malignant neoplasm of lower lobe of right lung (HCC) MAGNESIUM BLD Routine 01/08/2025 9:38 AM EDT Malignant neoplasm of lower lobe of right lung (HCC) COMPREHENSIVE METABOLIC PANEL Routine 9:38 AM EDT Malignant neoplasm of lower lobe of right lung (HCC) CBC + DIFF Routine 01/08/2025 9:38 AM EDT Malignant neoplasm of lower lobe of right lung (HCC) EXTERNAL LAB 01/08/2025 8:32 AM EDT EXTERNAL LAB 01/08/2025 8:32 AM EDT EXTERNAL LAB 01/08/2025 8:32 AM EDT EXTERNAL IMAGING 01/05/2025 9:30 AM EDT EXTERNAL LAB 01/05/2025 9:30 AM EDT EXTERNAL LAB 01/05/2025 9:30 AM EDT EXTERNAL LAB 01/04/2025 10:02 AM EDT EXTERNAL LAB 01/04/2025 10:02 AM EDT EXTERNAL LAB 01/04/2025 10:02 AM EDT EXTERNAL LAB 01/04/2025 10:02 AM EDT EXTERNAL IMAGING 01/03/2025 2:15 PM EDT EXTERNAL LAB 01/03/2025 8:05 AM EDT EXTERNAL LAB 01/03/2025 8:05 AM EDT EXTERNAL IMAGING 01/03/2025 8:05 AM EDT EXTERNAL IMAGING 01/03/2025 8:05 AM EDT EXTERNAL LAB 01/03/2025 8:05 AM EDT EXTERNAL CARDIOLOGY 01/03/2025 8 :05 AM EDT [facility] Routine 10:42 AM EDT Malignant neoplasm of lower lobe of right lung (HCC) MAGNESIUM BLD Routine 01/02/2025 10:42 AM EDT Malignant neoplasm of lower lobe of right lung (HCC) COMPREHENSIVE METABOLIC PANEL Routine 10:42 AM EDT Malignant neoplasm of lower lobe of right lung (HCC) CBC + DIFF Routine 01/02/2025 10:42 AM EDT Malignant neoplasm of lower lobe of right lung (HCC) CBC + DIFF STAT 12/26/2024 1:33 PM EDT Pre-op testing FOLATE SERUM Routine 12/26/2024 1:33 PM EDT Malignant neoplasm of lower lobe of right lung (HCC) VITAMIN B12 BLOOD Routine 12/26/2024 1:3 3 PM EDT Malignant neoplasm of lower lobe of right lung (HCC) IRON + TIBC Routine 12/26/2024 1:33 PM EDT Malignant neoplasm of lower lobe of right lung (HCC) FERRITIN BLD Routine 12/26/2024 1:33 PM EDT Malignant neoplasm of lower lobe of right lung (HCC) COMPREHENSIVE METABOLIC PANEL STAT 1:33 PM EDT Malignant neoplasm of lower lobe of right lung (HCC) EXTERNAL CARDIOLOGY 12/22/2024 1 :17 PM EDT EXTERNAL LAB 12/22/2024 1:16 PM EDT EXTERNAL LAB 12/21/2024 8:09 AM EDT EXTERNAL LAB 12/21/2024 8:09 AM EDT EXTERNAL LAB 12/21/2024 8:09 AM EDT EXTERNAL LAB 12/20/2024 8:54 AM EDT EXTERNAL LAB 12/20/2024 8:54 AM EDT EXTERNAL LAB 12/19/2024 8:36 AM EDT EXTERNAL IMAGING 12/19/2024 8:36 AM EDT EXTERNAL LAB 12/19/2024 8:36 AM EDT EXTERNAL LAB 12/19/2024 8:36 AM EDT EXTERNAL CARDIOLOGY 12/19/2024 8 :36 AM EDT EXTERNAL LAB 12/18/2024 9:16 AM EDT EXTERNAL LAB 12/18/2024 9:16 AM EDT EXTERNAL IMAGING 12/18/2024 9:16 AM EDT EXTERNAL IMAGING 12/18/2024 9:16 AM EDT EXTERNAL LAB 12/18/2024 9:16 AM EDT EXTERNAL LAB 12/08/2024 3:[address] BRAIN WO IVCON Routine 12/07/2024 8:3 2 AM EDT Malignant neoplasm of lower lobe of right lung (HCC) EXTERNAL IMAGING 12/06/2024 9:02 AM EDT [facility] Routine 10:30 AM EDT Malignant neoplasm [...] SITES 11/20/2024 10:49 AM EDT Bronchiolar disease [facility] W/DSTRJ LINDSAY RELIEF STENOSIS OTH/THN EXC 11/20/2024 10:49 AM EDT Bronchiolar disease CARDIAC IMPLANTABLE DEVICE CHECK Routine 11/20/2024 10:41 AM EDT BRONCHOSCOPY Routine 11/20/2024 10:20 AM EDT from Last 3 Months Results * (ABNORMAL) COMPREHENSIVE METABOLIC PANEL (02/14/2025 11:10 AM EDT) Only the most recent of7 resultswithin the time period is included. Protein, Total 7.1 6.3 - 8.0 g/dL 02/14/2025 11:[address] [facility] Albumin 3.5(L) 3.9 - 4.9 g/dL 02/14/2025 11:[address] [facility] Calcium, Total 9.0 8.5 - 10.2 mg/dL 02/14/2025 11:[address] [facility] Bilirubin, Total 0.3 0.2 - 1.3 mg/dL 02/14/2025 11:[address] [facility] Alkaline Phosphatase 103 38 - 113 U/L 02/14/2025 11:[address] [facility] AST 18 14 - 40 U/L 02/14/2025 11:[address] [facility] ALT 10 10 - 54 U/L 02/14/2025 11:[address] [facility] Glucose 116(H) 74 - 99 mg/dL 02/14/2025 11:[address] [facility] Comment: The [place] Diabetes [employer] (ADA) provides guidance for cutoff [...] Standards of Medical Care in Diabetes 2016, [place] [employer]. Diabetes Care. 2016.39(Suppl 1). BUN 21 9 - 24 mg/dL 02/14/2025 11:[address] [facility] Creatinine 0.80 0.73 - 1.22 mg/dL 02/14/2025 11:[address] [facility] Sodium 136 136 - 144 mmol/L 02/14/2025 11:[address] [facility] Potassium 4.1 3.7 - 5.1 mmol/L 02/14/2025 11:[address] [facility] Chloride 105 98 - 107 mmol/L 02/14/2025 11:[address] [facility] CO2 19(L) 22 - 30 mmol/L 02/14/2025 11:[address] [facility] Anion Gap 12 8 - 15 mmol/L 02/14/2025 11:[address] [facility] Estimated Glomerular Filtration Rate 99 >=60 mL/min/1. 73m 02/14/2025 11:[address] [facility] Comment:Estimated Glomerular Filtration Rate (eGFR) [...] Kvng Perez MD LABORATORY Final Res ult [facility] [address] [place] [address] * (ABNORMAL) COMPLETE BLOOD COUNT AND DIFFERENTIAL (02/14/2025 11:10 AM EDT) Only the most recent of7 resultswithin the time period is included. WBC 5.05 3.70 - 11.00 k/uL 02/14/2025 4:[address] [facility] RBC 2.77(L) 4.20 - 6.00 m/uL 02/14/2025 4:[address] [facility] Hemoglobin 7.0(L) 13.0 - 17.0 g/dL 02/14/2025 4:[address] [facility] Hematocrit 22.5(L) 39.0 - 51.0 % 02/14/2025 4:[address] [facility] MCV 81.2 80.0 - 100.0 fL 02/14/2025 4:[address] [facility] MCH 25.3(L) 26.0 - 34.0 pg 02/14/2025 4:[address] [facility] MCHC 31.1 30.5 - 36.0 g/dL 02/14/2025 4:[address] [facility] RDW-CV 16.4(H) 11.5 - 15.0 % 02/14/2025 4:[address] [facility] Platelet Count 76(L) 150 - 400 k/uL 02/14/2025 4:[address] [facility] Comment:No clot detected. MPV 10.3 9.0 - 12.7 fL 02/14/2025 4:[address] [facility] NRBC 0.0 /100 WBC 02/14/2025 4:22 PM EDT [facility] Absolute nRBC <0.01 <0.01 k/uL 02/14/2025 4:22 PM EDT [facility] Neutrophils % 96.5 % 02/14/2025 4:22 PM EDT [facility] Abs Neut (Segs + Bands) 4.87 1.45 - 7.50 k/uL 02/14/2025 4:22 PM EDT [facility] Lymphocytes % 2.6 % 02/14/2025 4:22 PM EDT [facility] Abs Lymph (Normal + Reactive) 0.13(L) 1.00 - 4.00 k/uL 02/14/2025 4:22 PM EDT [facility] Monocytes % 0.0 % 02/14/2025 4:22 PM EDT [facility] Abs Moore 0.00 <0.87 k/uL 02/14/2025 4:22 PM EDT [facility] Eosin% 0.9 % 02/14/2025 4:22 PM EDT [facility] Abs Eosin 0.05 <0.46 k/uL 02/14/2025 4:22 PM EDT [facility] Basophils % 0.0 % 02/14/2025 4:22 PM EDT [facility] Abs Baso 0.00 <0.11 k/uL 02/14/2025 4:22 PM EDT [facility] Platelet Estimate Decreased 02/14/2025 4:22 PM EDT [facility] Red Cell Morph Reviewed: see results of individual morphologies 02/14/2025 4:22 PM EDT [facility] Polychromasia Slight 02/14/2025 4:22 PM EDT [facility] Anisocytosis Present 02/14/2025 4:22 PM EDT [facility] Ovalocytes Few 02/14/2025 4:22 PM EDT [facility] Diff Type Manual 02/14/2025 4:22 PM EDT [facility] Blood BLOOD SPECIMEN / Unknown Venipuncture / Unknown 02/14/2025 11:10 AM EDT 02/14/2025 11:10 AM EDT Narrative [facility] - 02/14/2025 4:22 PM EDT ANC=4.52 The following results were reported as preliminary values due to instrument flagging. Interpret with caution. Final results may vary. Results requested and read back by: Mason WONG NP [facility] 02/14/2025 1116 AWHITE This is an appended report. These results have been appended to a previously verified report. Kvng Perez MD LABORATORY Final Res ult Performing Organization Address City/[facility]/ZIP Co de Phone Number [facility] [address] [place] [address], [facility] [address] [place] [address] * MAGNESIUM (02/05/2025 9:08 AM EDT) Only the most recent of4 resultswithin the time period is included. Magnesium 1.7 1.7 - 2.3 mg/dL 02/05/2025 9:[address] [facility] Blood BLOOD SPECIMEN / Unknown Venipuncture / Unknown 02/05/2025 9:08 AM EDT 02/05/2025 9:08 AM EDT Kvng Perez MD LABORATORY Final Res ult Performing Organization Address [facility]/ZIP Co de Phone Number [facility] [address] [place] [phone] * (ABNORMAL) UA DIP, URINE (POC) (01/26/2025 1:12 PM EDT) GLUCOSE UA (POCT) Negative Negative mg/dL [facility] BILIRUBIN UA (POCT) Small(A) Negative [facility] KETONE UA (POCT) 15(A) Negative mg/dL [facility] SPECIFIC GRAVITY UA (POCT) 1.020 1.005 - 1.030 [facility] HEMOGLOBIN/BLOOD UA (POCT) Negative Negative [facility] PH UA (POCT) 6.0 4.5 - 8.0 [facility] PROTEIN UA (POCT) 100(A) Negative mg/dL [facility] UROBILINOGEN UA (POCT) 0.2 Normal E.U./dL [facility] NITRITE UA (POCT) Negative Negative [facility] LEUKOCYTES UA (POCT) Negative Negative [facility] COLOR UA (POCT) [facility] CLARITY UA (POCT) Slightly Cloudy [facility] Urine specimen (specimen) URINE SPECIMEN / Unknown 01/26/2025 1:12 PM EDT Narrative [facility] POINT [facility] CARE - 01/26/2025 1:12 PM EDT Location:[facility], [address] [place] [address] , [place], [place], [address] Kvng Perez MD POC TESTING Final Res ult [facility] POINT OF CARE [facility] [address] [place], [place] * BACTERIAL CULTURE, URINE (01/26/2025 12:31 PM EDT) Culture, Urine <10,000 CFU/ml Normal urogenital felisa 01/28/2025 1:23 PM EDT [facility] Urine MID-STREAM URINE SPECIMEN / Unknown Non Blood / Unknown 01/26/2025 12:31 PM EDT 01/26/2025 12:58 PM EDT us Kvng Perez MD MICROBIOLOGY Final Res ult [facility] [address] [address], [place] * BACTERIAL CULTURE, BLOOD (01/26/2025 11:18 AM EDT) Only the most recent of2 resultswithin the time period is included. Culture, Blood No growth 5 days 01/31/2025 4:01 PM EDT [facility] Blood BLOOD SPECIMEN / Unknown Venipuncture / Unknown 01/26/2025 11:18 AM EDT 01/26/2025 11:18 AM EDT us Kvng Perez MD MICROBIOLOGY Final Res ult [facility] [address] [place] [address], [place] * XR CHEST 2V FRONTAL/LAT (01/26/2025 10:54 AM EDT) Anatomical Region Laterality Modality Chest Other 01/26/2025 10:5 4 AM EDT Impressions 01/26/2025 3:21 PM EDT IMPRESSION: No acute cardiopulmonary process. Transcribe Date/Time: Jan 26 2025 3:14P Dictated by: BEBO ANDREA MD This examination was interpreted and the report reviewed and electronically signed by: BEBO ANDREA MD on Jan 26 2025 3:19PM EST Thank you for allowing us to participate in the care of your patient. Should there be any questions regarding this interpretation, please call [phone]. If you are unable to reach us at the number above, please feel free to contact [facility] eRadiology at [phone]. Narrative 01/26/2025 3:21 PM EDT * * *Final Report* * * DATE OF EXAM: Jan 26 2025 10:54AM [id number] [id number] - XR CHEST 2V FRONTAL/LAT / PROCEDURE REASON: Fever in adult * * * * Physician Interpretation * * * * RESULT: FRONTAL AND LATERAL CHEST RADIOGRAPHS HISTORY: Fever in adult . TECHNIQUE: Frontal and lateral views of the chest were obtained. COMPARISON: No available comparisons. RESULT: Left-sided cardiac device present. Cardiomediastinal silhouette is normal. No consolidative opacity. No pleural effusion or pneumothorax. Pulmonary vasculature is unremarkable. Procedure Note Provider, [facility] [place] - 01/26/2025 * * *Final Report* * * DATE OF EXAM: Jan 26 2025 10:54AM NRX [id number] - XR CHEST 2V FRONTAL/LAT / PROCEDURE REASON: Fever in adult * * * * Physician Interpretation * * * * RESULT: FRONTAL AND LATERAL CHEST RADIOGRAPHS HISTORY: Fever in adult . TECHNIQUE: Frontal and lateral views of the chest were obtained. COMPARISON: No available comparisons. RESULT: Left-sided cardiac device present. Cardiomediastinal silhouette is normal. No consolidative opacity. No pleural effusion or pneumothorax. Pulmonary vasculature is unremarkable. IMPRESSION IMPRESSION: No acute cardiopulmonary process. Transcribe Date/Time: Jan 26 2025 3:14P Dictated by: BEBO ANDREA MD This examination was interpreted and the report reviewed and electronically signed by: BEBO ANDREA MD on Jan 26 2025 3:19PM EST Thank you for allowing us to participate in the care of your patient. Should there be any questions regarding this interpretation, please call [phone]. If you are unable to reach us at the number above, please feel free to contact [facility] eRadiology at [phone]. us Kvng Perez MD RAD-PAMA Final Res ult * STAFF REVIEW (01/24/2025 1:29 PM EDT) Reviewed MD HEIDI. 01/25/2025 5:46 PM EDT [facility] Blood BLOOD SPECIMEN / Unknown Venipuncture / Unknown 01/24/2025 1:29 PM EDT 01/24/2025 2:30 PM EDT us Ezra Moreno MD LABORATORY Final Result [facility] [address] [address], [place] * EXTERNAL IMAGING (01/17/2025 7:29 AM EDT) Anatomical Region Laterality Modality Other us External Provider PA-C RADIOLOGY Final Res ult * EXTERNAL LAB (01/08/2025 8:32 AM EDT) Only the most recent of25 resultswithin the time period is included. us External Provider PA-C LABORATORY Final Res ult * EXTERNAL IMAGING (01/05/2025 9:30 AM EDT) Anatomical Region Laterality Modality Other us External Provider PA-C RADIOLOGY Final Res ult * EXTERNAL IMAGING (01/03/2025 2:15 PM EDT) Anatomical Region Laterality Modality Other us External Provider PA-C RADIOLOGY Final Res ult * EXTERNAL IMAGING (01/03/2025 8:05 AM EDT) Anatomical Region Laterality Modality Other us External Provider PA-C RADIOLOGY Final Res ult * EXTERNAL IMAGING (01/03/2025 8:05 AM EDT) Anatomical Region Laterality Modality Other us External Provider PA-C RADIOLOGY Final Res ult * EXTERNAL CARDIOLOGY (01/03/2025 8:05 AM EDT) us External Provider PA-C CARDIOLOGY Final Res ult * [facility] (01/02/2025 10:42 AM EDT) Only the most recent of2 resultswithin the time period is included. [facility] Result Status See Report for Final Results [facility] Order Test ID: [id number] 01/10/2025 8:48 AM EDT [facility] Microsatellite Status MSI-High Not Detected 01/10/2025 8:48 AM EDT [facility] Blood Tumor Mutational Empire 6 Muts/Mb 01/10/2025 8:48 AM EDT [facility] ctDNA Tumor Fraction High (2.1%) 01/10/2025 8:48 AM EDT [facility] Blood Venipuncture / Unknown 01/02/2025 10:42 AM EDT 01/02/2025 10:43 AM EDT Narrative This result has genomic variants that were not included in this document. us Kvng Perez MD LABORATORY Final Res ult [facility] [address] [place] [address], * VITAMIN B12 (12/26/2024 1:33 PM EDT) Only the most recent of2 resultswithin the time period is included. Pathologist [facility] Vitamin B12 860 232 - 1,245 pg/mL 12/27/2024 2:11 AM EDT [facility] Blood BLOOD SPECIMEN / Unknown Venipuncture / Unknown 12/26/2024 1:33 PM EDT 12/26/2024 1:34 PM EDT Kvng Perez MD LABORATORY Final Res ult Performing Organization Address [facility] Co de Phone Number [facility] [address] [place] [address], [place] * (ABNORMAL) IRON AND TIBC (12/26/2024 1:33 PM EDT) Only the most recent of2 resultswithin the time period is included. [facility] Iron 11(L) 41 - 186 ug/dL 12/27/2024 2:09 AM EDT [facility] TIBC 180(L) 232 - 386 ug/dL 12/27/2024 2:09 AM EDT [facility] Transferrin Saturation 6.1(L) 15.0 - 57.0 % 12/27/2024 2:09 AM EDT [facility] Blood BLOOD SPECIMEN / Unknown Venipuncture / Unknown 12/26/2024 1:33 PM EDT 12/26/2024 1:34 PM EDT us Kvng Perez MD LABORATORY Final Res ult Performing Organization Address City/[facility]/ZIP Co de Phone Number [facility] [address] [place] [address], [place] * FOLATE, SERUM (12/26/2024 1:33 PM EDT) Only the most recent of2 resultswithin the time period is included. Pathologist [facility] Folate 10.8 >4.7 ng/mL 12/27/2024 2:11 AM EDT [facility] Blood BLOOD SPECIMEN / Unknown Venipuncture / Unknown 12/26/2024 1:33 PM EDT 12/26/2024 1:34 PM EDT Kvng Perez MD LABORATORY Final Res ult Performing Organization Address City/[facility]/ZIP Co de Phone Number [facility] [address] [place] [address], [place] * (ABNORMAL) FERRITIN (12/26/2024 1:33 PM EDT) Ferritin 595.0(H) 30.3 - 565.7 ng/mL 12/27/2024 2:11 AM EDT [facility] Blood BLOOD SPECIMEN / Unknown Venipuncture / Unknown 12/26/2024 1:33 PM EDT 12/26/2024 1:34 PM EDT us Kvng Perez MD LABORATORY Final Res ult Performing Organization Address City/[facility] Co de Phone Number [facility] [place] [address], [place] * EXTERNAL CARDIOLOGY (12/22/2024 1:17 PM EDT) us External Provider PA-C CARDIOLOGY Final Res ult * EXTERNAL IMAGING (12/19/2024 8:36 AM EDT) Anatomical Region Laterality Modality Other us External Provider PA-C RADIOLOGY Final Res ult * EXTERNAL CARDIOLOGY (12/19/2024 8:36 AM EDT) us External Provider PA-C CARDIOLOGY Final Res ult * EXTERNAL IMAGING (12/18/2024 9:16 AM EDT) Anatomical Region Laterality Modality Other us External Provider PA-C RADIOLOGY Final Res ult * EXTERNAL IMAGING (12/18/2024 9:16 AM EDT) Anatomical Region Laterality Modality Other External Provider PARashi RADIOLOGY Final Res ult * CT BRAIN WO IVCON (12/07/2024 8:32 AM EDT) Anatomical Region Laterality Modality Head Nuclear Medicine , Nuclear Medicine 12/07/2024 8:32 AM EDT Impressions 12/07/2024 1:51 PM EDT IMPRESSION: 1. No acute intracranial pathology. 2. [...] any questions regarding this interpretation, please call [phone]. If you are unable to reach us at the number above, please feel free to [facility] at [phone]. Narrative 12/07/2024 1:51 PM EDT * * *Final Report* * * DATE OF EXAM: Dec 07 2024 8:32AM [facility] 0504 - CT BRAIN WO IVCON [...] base and imaged soft tissues are unremarkable. Procedure Note Provider, [facility] [place] - 12/07/2024 * * *Final Report* * * DATE OF EXAM: Dec 07 2024 8:32AM [facility] 0504 - CT BRAIN WO IVCON [...] any questions regarding this interpretation, please call [phone]. If you are unable to reach us at the number above, please feel free to contact [facility] eRadiology at [phone]. us Kvng ePrez MD CT-PAMA Final Res ult * EXTERNAL IMAGING (12/06/2024 9:02 AM EDT) Anatomical Region Laterality Modality Other us External Provider PA-C RADIOLOGY Final Res ult * SURGICAL PATHOLOGY (11/20/2024 11:10 AM EDT) Case Report Surgical Pathology Report Case: [id number] Authorizing Provider: Alexandre Robertson MD Collected: 11/20/2024 11:10 AM Ordering Location: Admitting Received: 11/20/2024 03:27 PM Pathologist: William Araujo V, MD Specimen: Lung, Right, Biopsy, BI EBBX 11/24/2024 10:49 AM EDT [facility] FINAL DIAGNOSIS Right lung, bronchus intermedius, endobronchial biopsy: - Squamous cell carcinoma. [place]/ 11/21/2024 11/24/2024 10:49 AM EDT [facility] at 1050 EDT Gross Description A. Lung, Right, Biopsy Received in formalin are multiple pieces of cardenas-red, soft tissue aggregating to 2.1 x 0.6 x 0.1 cm. Totally submitted in one cassette. 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 The above diagnosis remains unchanged. [facility]/ 11/24/2024 Laboratory Developed Test (LDT) Disclaimer: Performance characteristics of immunohistochemical, immunofluorescent and chromogenic in-situ hybridization tests have been determined by the performing laboratory within [facility] s [facility] Pathology and Laboratory Medicine [place] ([facility], [facility], [facility] or [facility]) in a manner consistent with CLIA requirements. One or more of these tests have not been cleared or approved by the FDA. [facility] is regulated under CLIA as qualified to perform high-complexity testing. These tests are used for clinical purposes. They should not be regarded as investigational or for research. Positive and negative controls stain appropriately. 11/24/2024 10:49 AM EDT [facility] Addendum electronically signed by William Araujo V, MD on 11/24/2024 at 1049 EDT Disclaimer Laboratory Developed Test (LDT) Disclaimer: Performance characteristics of immunohistochemical, immunofluorescent, and chromogenic in-situ hybridization tests have been determined by the performing laboratory within [facility]'s [facility] Pathology and Laboratory Medicine Department ([facility], [facility], [facility], [facility], [facility], [facility], or [facility]) in a manner consistent with CLIA requirements. One or more of these tests may not have been cleared or approved by the FDA. [facility] is regulated under CLIA as qualified to perform high-complexity testing. These tests are used for clinical purposes. These should not be regarded as investigational or for research. Positive and negative controls stain appropriately. 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] us Jamie-Kevin Robertson MD SURGICAL PATHOLOGY Edited Result - Final [facility] [address] [facility] [place] [id number], [place] * PD-L1 22C3 (11/20/2024 11:10 AM EDT) TPS Interpretation Negative (less than 1%) 11/24/2024 10:50 AM EDT [facility] Tumor Proportion Score (TPS) 0 11/24/2024 10:50 AM EDT [facility] Tumor Type Other (See Comment) 11/24 10:50 AM EDT [facility] 11/24/2024 10:50 AM EDT [facility] Fixative Formalin, 10% Neutra l Buffered 11/24/2024 10:50 AM EDT [facility] Interpretation Comment and Reference Range Interpretation [...] Product label for additional information. KEYTRUDA - (https://www.keytrudaVantage Sports.com/prescribing-inf ormation/) LIBTAYO - (https://www.enEvolv .[employer]route [employer]/sites/default/ayo es/Libtayo_FPI.pdf) 11/24/2024 10:50 AM EDT [facility] Method Immunohistochemistry was performed on formalin fixed paraffin-embedded tissue using the mouse monoclonal antibody 22C3 (tripJane; [place], [place]) followed by ultrasensitive bright field detection (Optiview with amplification [[place], [place]]). 11/24/2024 10:50 AM EDT [facility] Disclaimer Laboratory Developed Test (LDT) Disclaimer: Performance characteristics of immunohistochemical, immunofluorescent and chromogenic in-situ hybridization tests have been determined by the performing laboratory within [facility] Pathology and Laboratory Medicine Department ([facility], [facility], [facility], [facility], [facility], [facility], or [facility]) in a manner consistent with CLIA requirements. One or more of these tests have not been cleared or approved by the FDA. [facility] is regulated under CLIA as qualified to perform high-complexity testing. These tests are used for clinical purposes. They should not be regarded as investigational or for research. Positive and negative controls stain appropriately. 11/24/2024 10:50 AM EDT [facility] Block ID A1 11/24/2024 10:50 AM EDT [facility] Performing Lab Diagnostic interpretation performed at: [facility], [address] [place] [address], [place] [address] CLIA# [id number] Plant Scientist: Padilla López MD Electronically signed out by: William Araujo MD 11/24/2024 10:50 AM EDT [facility] Tissue BIOPSY OF LUNG / Unknown 11/20/2024 11:10 AM EDT 11/22/2024 10:11 AM EDT us Alexandre Robertson MD SURGICAL PATHOLOGY Final Result [facility] [address] [place] [address], * (ABNORMAL) BACTERIAL CULTURE AND GRAM STAIN, RESPIRATORY, SPUTUM AND TRACHEAL ASPIRATE (11/20/2024 11:04 AM EDT) Culture, Respiratory Few Methicillin-RESISTANT Staphylococcus aureus (MRSA)(A) MINIMUM INHIBITORY CONCENTRATI ON(VITEK) 7:48 AM EDT [facility] [place] PBP2a SA Culture Etters Test PBP2a was detected by an immunochromatographic assay. PBP2a is encoded for by the mecA gene. This isolate is methicillin-resistant. 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 This test was developed and its performance characteristics determined by the [facility] [place] ([facility]). It has not been cleared or approved by the FDA. [facility] is regulated under CLIA as qualified to [...] Doxycycline MINIMUM INHIBITORY CONCENTRATION(RACHEL K) <=0.5: Susceptible Alexandre Robertson MD MICROBIOLOGY Final Result Performing Organization Address [facility] Co de Phone Number [facility] [address] [place] [address], [place] * FUNGAL CULTURE AND SMEAR (NON DERMAL) (11/20/2024 11:04 AM EDT) Culture, Fungal No Fungus isolated after 28 days MINIMUM INHIBITORY CONCENTRATION( VITEK) 12/18/2024 5:03 PM EDT [facility] Fungal Smear No fungus seen 12/18/2024 5:03 PM EDT [facility] Wash BRONCHIAL STRUCTURE / Unknown 11/20/2024 11:04 AM EDT 11/20/2024 3:24 PM EDT 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] Alexandre Robertson MD MICROBIOLOGY Final Result Performing Organization Address [facility] de Phone Number [facility] [address] [place] [address], * AFB CULTURE AND STAIN (11/20/2024 11:04 AM EDT) Culture, AFB No Acid Fast Bacilli isolated after 42 days 01/01/2025 6:05 PM EDT [facility] AFB Stain No acid fast bacilli seen by fluorochrome stain 01/01/2025 6:05 PM EDT [facility] Wash BRONCHIAL STRUCTURE / Unknown 11/20/2024 11:04 AM EDT 11/20/2024 3:24 PM EDT 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] Alexandre Robertson MD MICROBIOLOGY Final Result [facility] [address] [facility] [address] [place] [address], [place] * Airway (11/20/2024 10:57 AM EDT) Narrative Marvel Burgos APRN.DISEASE INTERVENTION SPECIALIST - 11/20/2024 10:57 AM EDT Marvel Burgos APRN.DISEASE INTERVENTION SPECIALIST 11/20/2024 11:10 AM Airway General Information Procedure Start Time/Medication Administration: 11/20/2024 10:57 AM Procedure End Time: 11/20/2024 10:57 AM Patient location during procedure: OR Timeout Performed Pre-procedure: timeout performed Consent Obtained: Yes Patient identity confirmed: arm band Staffing Anesthesiologist: Azalea Mejía MD DISEASE INTERVENTION SPECIALIST: Marvel Burgos APRN.DISEASE INTERVENTION SPECIALIST Performed by: anesthesiologist and DISEASE INTERVENTION SPECIALIST Indications and Patient Condition Indications for airway management: anesthesia Preoxygenated: yes anesthesia circuit Patient position: sniffing Method: asleep Cricoid Pressure: No Manual In-Line Stabilization: No Difficult Mask: No Airway Accessory: oral airway Final Airway Details Final airway type: endotracheal airway Final Endotracheal Airway: ETT Cuffed: yes Successful intubation technique: video laryngoscopy Devices used: CloudSwitch Endotracheal tube insertion site: oral Blade size: #4 ETT size (mm): 8.5 Measured from: teeth Measurement (cm): 21 Placement verified by: bronchoscopy and capnometry Cormack-Lehane Classification: grade I - full view of glottis Number of attempts at approach: 1 Failed airway: no Airway not difficult Azalea Mejía MD ANESTHESIA ORDERABLES Irina l Result * CARDIAC IMPLANTABLE DEVICE CHECK (11/20/2024 10:41 AM EDT) Date Time Interrogation Session MURJ CARDIAC Implantable Pulse Generator Social Work Assistant [employer] MURJ CARDIAC Implantable Pulse Generator Type Pacemaker MURJ CARDIAC Implantable Pulse Generator Model L331 MURJ CARDIAC Implantable Pulse Generator Serial Number [id number] MURJ CARDIAC Implantable Pulse Generator Implant Date 20241109 MURJ CARDIAC Battery Status JOSELIN MURJ CARDIAC Lead Channel Sensing Intrinsic Amplitude 4.200 MURJ CARDIAC Lead Channel Setting Sensing Sensitivity 0.25 MURJ CARDIAC Lead Channel Impedance Value 523 MURJ CARDIAC Lead Channel Pacing Threshold Amplitude 4.500 MURJ CARDIAC Lead Channel Pacing Threshold Pulse Width 0.4 MURJ CARDIAC Lead Channel Measurements Date and Time 2024-11-20 MUR CARDIAC Lead Channel Setting Pacing Amplitude 5.000 MURJ CARDIAC Lead Channel Setting Pacing Pulse Width 0.4 MURJ CARDIAC Lead Channel Sensing Intrinsic Amplitude 16.500 MURJ CARDIAC Lead Channel Setting Sensing Sensitivity 0.60 [facility] Impedance Value 740 MUR CARDIAC Lead Channel Pacing Threshold Amplitude 1.400 MURJ CARDIAC Lead Channel Pacing Threshold Pulse Width 0.4 MURJ CARDIAC Lead Channel Measurements Date and Time 2024-11-20 [facility] CARDIAC Lead Channel Setting Pacing Amplitude 3.500 [...] VF MURJ CARDIAC Zone Setting Status On [facility] CARDIAC Zone ID 1 MURJ CARDIAC Zone Setting Type Category VT MURJ CARDIAC Rate 1 160 MURJ CARDIAC Zone Setting Status On [facility] CARDIAC Zone ID 2 MURJ CARDIAC Zone Setting Type Category VT1 MURJ CARDIAC Zone Setting Status On [facility] CARDIAC Zone ID 3 [facility] CARDIAC Implantable Lead Social Work Assistant [employer] [facility] CARDIAC Implantable Lead Model 7842 [facility] CARDIAC Implantable Lead Location Right Ventricle [facility] CARDIAC Implantable Lead Connection Status Connected [facility] CARDIAC Implantable Lead Serial Number [id number] [facility] CARDIAC Implantable Lead Implant Date 20241012 [facility] CARDIAC Implantable Lead Social Work Assistant [employer] [facility] CARDIAC Implantable Lead Model 7841 [facility] CARDIAC Implantable Lead Location Right Atrium [facility] CARDIAC Implantable Lead Connection Status Connected [facility] CARDIAC Implantable Lead Serial Number [id number] [facility] CARDIAC Implantable Lead Implant Date 20241012 [facility] CARDIAC 11/20/2024 10:4 1 AM EDT Narrative [facility] CARDIAC - 11/26/2024 3:22 PM EDT Pre-Op Device Evaluation * Device type: DUAL CHAMBER PACEMAKER * Pre-Op bronchoscopy * Presenting Rhythm: /VS/SOLAR TECHNICIAN * Underlying Rhythm: Sinus Rhythm * Programmed [...] nor swelling. * Other Diagnostics: AP <1%, SOLAR TECHNICIAN 2% Elevated Atrial Capture Threshold * Elevated [...] PACEMAKER * Pre-Op bronchoscopy * Presenting Rhythm: /VS/SOLAR TECHNICIAN * Underlying Rhythm: Sinus Rhythm * Programmed [...] nor swelling. * Other Diagnostics: AP <1%, SOLAR TECHNICIAN 2% Elevated Atrial Capture Threshold * Elevated [...] Start: 11:02:38 AM Procedure End: 12:00:41 PM [facility] Provider DIGESTIVE DISEASE Final Result from Last 3 Months Insurance [employer] PPO OOS Care Teams Adjunct Art History Instructor Relationship Specialty Start Date End Date Brandi Alvarado APRN.DIRECTOR OF LABORATORY OPERATIONS [facility][note 3] [place] [address] PCP - General Nurse Practitioner 10/27/24 Blanquita Hargrove, RN [address] [place] [address] [place] [address] Specialty Reduction Plant Supervisor Hematology/Oncology 11/29/24 Kvng Perez MD [address] [facility] [address] Physician Hematology/Oncology 11/29/24 Annel Alas LSW Bead Forming Machine Operator 01/08/25 Ricardo Alva, RN Specialty Reduction Plant Supervisor Hospice & Palliative Medicine 01/23/25 Kisha Craig, TIRE FABRIC INSPECTOR.DIRECTOR OF LABORATORY OPERATIONS [facility] [place] [address] Hospice & Palliative Medicine 01/23/25
--- OUTSIDE RECORDS SUMMARY | 2025-02-18 17:42 | XMS_ITS | Encounter Summary ---
Author Organization [facility] Address [address] [place] [address] Care Team Providers Care Predatory Animal Trapper Name Role Phone Unavailable Primary Care Provider Unavailabl e Encounter Details Date Type Department Care Team (Latest Contact Info) Description 10/09/2024 Results Follow-Up [facility] [address] [place] [address] Marvel Shields, SHAMA [address] [place] [address] BLOOD CULTURE 1, BLOOD CULTURE 2 Social History Tobacco Use Types Packs/Day Years [...]
--- OUTSIDE RECORDS SUMMARY | 2025-02-18 17:43 | XMS_ITS | Encounter Summary ---
Author Organization [facility] Address [address] [place], [place] [id number] Care Team Providers Care Division Traffic Superintendent Name Role Phone Brandi Alvarado CIRCULAR TANK COOPER.CHANNEL MACHINE OPERATOR Primary Care Provider Blanquita Hargrove RN Unavailable [phone] Kvng Perez MD Unavailable [phone] Annel Alas Unavailable Unavailable Ricardo Alva RN Unavailable Unava ilable Kisha Craig CIRCULAR TANK COOPER.CHANNEL MACHINE OPERATOR Unavailable + Source Comments In the event this information is protected by the Federal Confidentiality of Alcohol and Drug AbusePatient Records regulations: The Federal rules restrict any use of the information to criminally investigate or prosecute any alcohol or drug abuse patient.[facility] Encounter Details Date Type Department Care Team (Latest Contact Info) Description 11/08/2024 H&P External-NonCCF Provider, External, PADellaC Do not [...] is lower risk 9 10/27/2024 Data from: https://www.neighborhoodatlas.medicine.[facility].edu/. Last address used for calculation [address] [...] 11:45 AM EDT Appointment Radiation Oncology [address] [facility] [place] [address] Lung 02/19/2025 11:45 AM EDT Nurse Visit Radiation Oncology [address] [facility] [place] [address] Mae, Nurse Radt [address] [facility] [place] [address] pulse monitoring 02/20/2025 10:30 AM EDT Office Visit Palliative Medicine [address] [facility] [place] [address] Kisha Craig, CIRCULAR TANK COOPER.CHANNEL MACHINE OPERATOR [address] [place] [address] 4 week follow up 02/20/2025 11:45 AM EDT Appointment Radiation Oncology [address] [facility] [place] [address] Lung- Pall med 10:30 02/20/2025 11:45 AM EDT Nurse Visit Radiation Oncology [address] [facility] [place] [address] Mae, Nurse Radt [address] [facility] [place] [address] pulse monitoring 02/21/2025 8:00 AM EDT Appointment Radiation Oncology [address] [facility] [place] [address] Lung - 845 LAB, 9 MILLS, 930 CHEMO x6 HRS 02/21/2025 8:45 AM EDT Office Visit [facility] [address] [facility] [place] [address] lab follow up and chemotx Cisplatin + IV MAG - PUT PATIENT BACK ON Wednesday02/21/2025 9:00 AM EDT Visit (SP) Office Hematology/Oncology [address] [facility] [place] [address] Kvng Perez MD [address] [facility] [place] [address] lab follow up and chemotx Cisplatin + IV MAG - PUT PATIENT BACK ON Wednesday02/21/2025 9:30 AM EDT [facility] Hematology/Oncology [address] [facility] [place] [address] Mae, Chair 7 [address] [facility] [place] [address] lab follow up and chemotx Cisplatin + IV MAG - PUT PATIENT BACK ON Wednesday02/21/2025 11:45 AM EDT Nurse Visit Radiation Oncology [address] [facility] [place] [address] Mae, Nurse Radt [address] [facility] [place] [address] pulse monitoring 02/21/2025 12:00 PM EDT Office Visit Radiation Oncology [address] [facility] [place] [address] Ezra Moreno MD [address] [facility] [place] [address] Location: SA-ON TREATMENT REV 02/22/2025 11:45 AM EDT Appointment Radiation Oncology [address] [facility] [place] [address] Lung 02/22/2025 11:45 AM EDT Nurse Visit Radiation Oncology [address] [facility] [place] [address] Mae, Nurse Radt [address] [facility] [place] [address] pulse monitoring 05/28/2025 11:30 AM EST Office Visit Radiation Oncology [address] [facility] [place] [address] Ezra Moreno MD [address] [facility] [place] [address] 3-4 month final radiation follow up documented as of this encounter Visit Diagnoses Not on filedocumented in this encounter Care Teams Division Traffic Superintendent Relationship Specialty Start Date End Date Brandi Alvarado, CIRCULAR TANK COOPER.CHANNEL MACHINE OPERATOR [address] [place] [address] PCP - General Nurse Practitioner 10/27/24 Blanquita Hargrove RN [address] [facility] [place] [address] Specialty Straw Hat Brim Cutter Operator Hematology/Oncology 11/29/24 Kvng Perez MD [address] [place] [address] [place] [address] Physician Hematology/Oncology 11/29/24 Annel Alas LSW Deputy Clerk Of Court 01/08/25 Ricardo Alva, RN Specialty Straw Hat Brim Cutter Operator Hospice & Palliative Medicine 01/23/25 Kisha Craig, CIRCULAR TANK COOPER.CHANNEL MACHINE OPERATOR [address] [facility] [place] [id number] Hospice & Palliative Medicine 01/23/25 documented as of this encounter
--- OUTSIDE RECORDS SUMMARY | 2025-02-18 17:43 | XMS_ITS | Encounter Summary ---
Author Organization [facility] Address [address] [place] [address] Care Team Providers Care Kardex Clerk Name Role Phone Brandi Alvarado SUPERVISOR BUILDING MAINTENANCE.PAPER WINDER Primary Care Provider Blanquiat Hargrove RN Unavailable [phone] Kvng Perez MD Unavailable [phone] Annel Alas Unavailable Unavailable Ricardo Alva RN Unavailable Unava ilable Kisha Craig SUPERVISOR BUILDING MAINTENANCE.PAPER WINDER Unavailable + Source Comments In the event this information is protected by the Federal Confidentiality of Alcohol and Drug AbusePatient Records regulations: The Federal rules restrict any use of the information to criminally investigate or prosecute any alcohol or drug abuse patient.[facility] Encounter Details Date Type Department Care Team (Latest Contact Info) Description 02/14/2025 Travel Social History Tobacco Use Types Packs/Day [...] is lower risk 9 11/15/2024 Data from: https://www.neighborhoodatlas.medicine.[facility].edu/. Last address used for calculation [...] 11:45 AM EDT Appointment Radiation Oncology [address] [facility] [address] Lung 02/19/2025 11:45 AM EDT Nurse Visit Radiation Oncology [address] [facility] [address] Mae, Nurse Radt [address] [facility] [place] [address] pulse monitoring 02/20/2025 10:30 AM EDT Office Visit Palliative Medicine [address] [facility] [place] [address] Kisha Craig, SUPERVISOR BUILDING MAINTENANCE.PAPER WINDER [address] [place] [id number] 4 week follow up 02/20/2025 11:45 AM EDT Appointment Radiation Oncology [address] [facility] [place] [address] Lung- Pall med 10:30 02/20/2025 11:45 AM EDT Nurse Visit Radiation Oncology [address] [facility] [place] [address] Mae, Nurse Radt [address] [facility] [place] [address] pulse monitoring 02/21/2025 8:00 AM EDT Appointment Radiation Oncology [address] [facility] [place] [address] Lung - 845 LAB, 9 MILLS, 930 CHEMO x6 HRS 02/21/2025 8:45 AM EDT Office Visit [facility] [address] [place] [address] lab follow up and chemotx Cisplatin + IV MAG - PUT PATIENT BACK ON Wednesday02/21/2025 9:00 AM EDT Visit (SP) Office Hematology/Oncology [address] [facility] [place] [address] Kvng Perez MD [address] [facility] [place] [address] lab follow up and chemotx Cisplatin + IV MAG - PUT PATIENT BACK ON Wednesday02/21/2025 9:30 AM EDT [facility] Hematology/Oncology [address] [facility] [place] [address] Mae, Chair 7 [address] [facility] [place] [address] lab follow up and chemotx Cisplatin + IV MAG - PUT PATIENT BACK ON Wednesday02/21/2025 11:45 AM EDT Nurse Visit Radiation Oncology [address] [facility] [place] [address] Mae, Nurse Radt [address] [facility] [place] [address] pulse monitoring 02/21/2025 12:00 PM EDT Office Visit Radiation Oncology [address] [facility] [place] [address] Ezra Moreno MD [address] [facility] [place] [address] Location: SA-ON TREATMENT REV 02/22/2025 11:45 AM EDT Appointment Radiation Oncology [address] [facility] [place] [address] Lung 02/22/2025 11:45 AM EDT Nurse Visit Radiation Oncology [address] [facility] [place] [address] Mae, Nurse Radt [address] [facility] [place] [address] pulse monitoring 05/28/2025 11:30 AM EST Office Visit Radiation Oncology [address] [facility] [place] [address] Ezra Moreno MD [address] [facility] [place] [address] 3-4 month final radiation follow up documented as of this encounter Visit Diagnoses Not on filedocumented in this encounter Care Teams Kardex Clerk Relationship Specialty Start Date End Date Brandi Alvarado, SUPERVISOR BUILDING MAINTENANCE.PAPER WINDER [address] [place] [address] PCP - General Nurse Practitioner 10/27/24 Blanquita Hargrove, RN [address] [facility] [place] [address] Specialty Scheduling Coordinator Hematology/Oncology 11/29/24 Kvng Perez MD [address] [place] [address] [place] [address] Physician Hematology/Oncology 11/29/24 Annel Alas LSW General Car Yard Supervisor 01/08/25 Ricardo Alva, RN Specialty Scheduling Coordinator Hospice & Palliative Medicine 01/23/25 Kisha Craig, SUPERVISOR BUILDING MAINTENANCE.PAPER WINDER [address] [facility] [address] Hospice & Palliative Medicine 01/23/25 documented as of this encounter
--- OUTSIDE RECORDS SUMMARY | 2025-02-18 17:43 | XMS_ITS | Encounter Summary ---
Author Organization [facility] Address [address] [place], [place] [id number] Care Team Providers Care Reinforcing Steel Erector Name Role Phone Brandi Alvarado PRICE CHANGER.ADMINISTRATIVE OFFICE ASSISTANT Primary Care Provider Blanquita Hragrove RN Unavailable [phone] Kvng Perez MD Unavailable [phone] Annel Alas Unavailable Unavailable Ricardo Alva RN Unavailable Unava ilable Kisha Craig PRICE CHANGER.ADMINISTRATIVE OFFICE ASSISTANT Unavailable + Source Comments In the event this information is protected by the Federal Confidentiality of Alcohol and Drug AbusePatient Records regulations: The Federal rules restrict any use of the information to criminally investigate or prosecute any alcohol or drug abuse patient.[facility] Encounter Details Date Type Department Care Team (Latest Contact Info) Description 12/06/2024 H&P External-NonCCF Provider, External, PADellaC Do not [...] is lower risk 9 11/15/2024 Data from: https://www.neighborhoodatlas.medicine.[facility]/. Last address used for [...] 11:45 AM EDT Appointment Radiation Oncology [address] [facility] [place] [place] [address] Lung 02/19/2025 11:45 AM EDT Nurse Visit Radiation Oncology [address] [place] [address] Mae Nurse Radt [address] [place] [address] pulse monitoring 02/20/2025 10:30 AM EDT Office Visit Palliative Medicine [address] [place] [address] Kisha Craig, PRICE CHANGER.ADMINISTRATIVE OFFICE ASSISTANT [address] [place] [address] 4 week follow up 02/20/2025 11:45 AM EDT Appointment Radiation Oncology [address] [place] [address] Lung- Pall med 10:30 02/20/2025 11:45 AM EDT Nurse Visit Radiation Oncology [address] [place] [address] Mae Nurse Radt [address] [place] [address] pulse monitoring 02/21/2025 8:00 AM EDT Appointment Radiation Oncology [address] [place] [address] Lung - 845 LAB, 9 MILLS, 930 CHEMO x6 HRS 02/21/2025 8:45 AM EDT Office Visit [facility] Laboratory [address] [place] [address] lab follow up and chemotx Cisplatin + IV MAG - PUT PATIENT BACK ON Wednesday02/21/2025 9:00 AM EDT Visit (SP) Office Hematology/Oncology [address] [place] [address] Kvng Perez MD [address] [place] [address] lab follow up and chemotx Cisplatin + IV MAG - PUT PATIENT BACK ON Wednesday02/21/2025 9:30 AM EDT [facility] Hematology/Oncology [address] [place] [address] Mae, Chair [address] [place] [address] lab follow up and chemotx Cisplatin + IV MAG - PUT PATIENT BACK ON Wednesday02/21/2025 11:45 AM EDT Nurse Visit Radiation Oncology [address] [place] [address] Mae, Nurse Radt [address] [place] [address] pulse monitoring 02/21/2025 12:00 PM EDT Office Visit Radiation Oncology [address] [place] [address] Ezra Moreno MD [address] [place] [address] Location: SA-ON TREATMENT REV 02/22/2025 11:45 AM EDT Appointment Radiation Oncology [address] [place] [address] Lung 02/22/2025 11:45 AM EDT Nurse Visit Radiation Oncology [address] [place] [address] Mae, Nurse Radt [address] [place] [address] pulse monitoring 05/28/2025 11:30 AM EST Office Visit Radiation Oncology [address] [place] [address] Ezra Moreno MD [address] [place] [address] 3-4 month final radiation follow up documented as of this encounter Visit Diagnoses Not on filedocumented in this encounter Care Teams Reinforcing Steel Erector Relationship Specialty Start Date End Date Brandi Alvarado, PRICE CHANGER.ADMINISTRATIVE OFFICE ASSISTANT [address] [place] [address] PCP - General Nurse Practitioner 10/27/24 Blanquita Hargrove, RN [address] [place] [address] Specialty Groundskeeper Porter Hematology/Oncology 11/29/24 Kvng Perez MD [address] [place] [address] [place] [address] Physician Hematology/Oncology 11/29/24 Annel Alas LSW Taxation Agent 01/08/25 Ricardo Alva, RN Specialty Groundskeeper Porter Hospice & Palliative Medicine 01/23/25 Kisha Craig, PRICE CHANGER.ADMINISTRATIVE OFFICE ASSISTANT [address] [place] [address] [place] [id number] Hospice & Palliative Medicine 01/23/25 documented as of this encounter
--- OUTSIDE RECORDS SUMMARY | 2025-02-18 17:43 | XMS_ITS | Encounter Summary ---
Author Organization [facility] Address [address] [place], [place] [id number] Care Team Providers Care Embossing Machine Tender Name Role Phone Brandi Alvarado APPLICATION CONSULTANT.HEMATOLOGY TECHNICIAN Primary Care Provider Blanquita Hargrove RN Unavailable [phone] Kvng Perez MD Unavailable [phone] Annel Alas Unavailable Unavailable Ricardo Alva RN Unavailable Unava ilable Kisha Craig APPLICATION CONSULTANT.HEMATOLOGY TECHNICIAN Unavailable + Source Comments In the event this information is protected by the Federal Confidentiality of Alcohol and Drug AbusePatient Records regulations: The Federal rules restrict any use of the information to criminally investigate or prosecute any alcohol or drug abuse patient.[facility] Encounter Details Date Type Department Care Team (Latest Contact Info) Description 12/18/2024 H&P External-NonCCF Provider, External, PADellaC Do not [...] is lower risk 9 11/15/2024 Data from: https://www.neighborhoodatlas.medicine.[facility]/. Last address used for calculation [...] 11:45 AM EDT Appointment Radiation Oncology [address] [place] [address] Lung 02/19/2025 11:45 AM EDT Nurse Visit Radiation Oncology [address] [place] [address] Mae Nurse Radt [address] [place] [address] pulse monitoring 02/20/2025 10:30 AM EDT Office Visit Palliative Medicine [address] [place] [address] Kisha Craig, APPLICATION CONSULTANT.HEMATOLOGY TECHNICIAN [address] [place] [address] 4 week follow up 02/20/2025 11:45 AM EDT Appointment Radiation Oncology [address] [place] [address] Lung- Pall med 10:30 02/20/2025 11:45 AM EDT Nurse Visit Radiation Oncology [address] [place] [address] Mae Nurse Radt [address] [place] [address] pulse monitoring 02/21/2025 8:00 AM EDT Appointment Radiation Oncology [address] [place] [address] Lung - 845 LAB, 9 MILLS, 930 CHEMO x6 HRS 02/21/2025 8:45 AM EDT Office Visit [facility] [address] [facility] [place] [address] lab follow up and chemotx Cisplatin + IV MAG - PUT PATIENT BACK ON Wednesday02/21/2025 9:00 AM EDT Visit (SP) Office Hematology/Oncology [address] [facility] [place] [address] Kvng Perez MD [address] [facility] [place] [address] lab follow up and chemotx Cisplatin + IV MAG - PUT PATIENT BACK ON Wednesday02/21/2025 9:30 AM EDT [facility] Hematology/Oncology [address] [facility] [place] [address] Mae, Chair 7 [address] [facility] [place] [address] lab follow up and chemotx Cisplatin + IV MAG - PUT PATIENT BACK ON Wednesday02/21/2025 11:45 AM EDT Nurse Visit Radiation Oncology [address] [facility] [place] [address] Mae, Nurse Radt [address] [facility] [place] [address] pulse monitoring 02/21/2025 12:00 PM EDT Office Visit Radiation Oncology [address] [facility] [place] [address] Ezra Moreno MD [address] [facility] [place] [address] Location: SA-ON TREATMENT REV 02/22/2025 11:45 AM EDT Appointment Radiation Oncology [address] [facility] [place] [address] Lung 02/22/2025 11:45 AM EDT Nurse Visit Radiation Oncology [address] [facility] [place] [address] Mae, Nurse Radt [address] [facility] [place] [address] pulse monitoring 05/28/2025 11:30 AM EST Office Visit Radiation Oncology [address] [facility] [place] [address] Ezra Moreno MD [address] [facility] [place] [address] 3-4 month final radiation follow up documented as of this encounter Visit Diagnoses Not on filedocumented in this encounter Care Teams Embossing Machine Tender Relationship Specialty Start Date End Date Brandi Alvarado, APPLICATION CONSULTANT.HEMATOLOGY TECHNICIAN [address] [place] [address] PCP - General Nurse Practitioner 10/27/24 Blanquita Hargrove, RN [address] [facility] [place] [address] Specialty Linderman Machine Operator Hematology/Oncology 11/29/24 Kvng Perez MD [address] [place] [address] [place] [address] Physician Hematology/Oncology 11/29/24 Annel Alas LSW Textile Bag Sewer 01/08/25 Ricardo Alva, RN Specialty Linderman Machine Operator Hospice & Palliative Medicine 01/23/25 Kisha Craig, APPLICATION CONSULTANT.HEMATOLOGY TECHNICIAN [address] [place] [address] [place] [id number] Hospice & Palliative Medicine 01/23/25 documented as of this encounter
--- OUTSIDE RECORDS SUMMARY | 2025-02-18 17:43 | XMS_ITS | Encounter Summary ---
Author Organization [facility] Address [address] [place] [address] Care Team Providers Care Intellectual Property Counsel Name Role Phone Brandi Alvarado POLICE SERGEANT PRECINCT.LANDING SCALER Primary Care Provider Blanquita Hargrove RN Unavailable [phone] Kvng Perez MD Unavailable [phone] Annel Alas Unavailable Unavailable Ricardo Alva RN Unavailable Unava ilable Kisha Craig POLICE SERGEANT PRECINCT.LANDING SCALER Unavailable + Source Comments In the event this information is protected by the Federal Confidentiality of Alcohol and Drug AbusePatient Records regulations: The Federal rules restrict any use of the information to criminally investigate or prosecute any alcohol or drug abuse patient.[facility] Reason for Visit * Reason Comments Care Coordination Persistent hard hicc ups Encounter Details Date Type Department Care Team (Late st Contact Info) Description 02/08/2025 Telephone Hematology/Oncology [facility] [place] [address] Blanquita Hargrove, RN [address] [place] [address] [place] [address] Care Coordination (Persistent hard hiccups) Social History Tobacco Use Types Packs/Day Years [...] is lower risk 9 11/15/2024 Data from: https://www.neighborhoodatlas.[facility]/. Last address used for calculation [address] 11/15/2024 Sex and Gender Information Value Date Recorded Sex Assigned at Not on file Legal Sex Male 8:04 AM EST Gender Identity Not on file Sexual Orientation Not on file documented as of this encounter Miscellaneous Notes * Telephone Encounter - Blanquita Hargrove RN - 02/08/2025 12:31 PM EDT notified Blanquita Hargrove RN * Telephone Encounter - Kvng Perez MD - 02/08/2025 12:25 PM EDT I sent Thorazine to pharmacy. Please tell him to try it. Thank you * Telephone Encounter - Blanquita Hargrove RN - 02/08/2025 11:53 AM EDT calls stating pt continues to have constant hard hiccups. Pt has been taking baclofen TID for 3 days now with no relief. RNCC can hear pt's constant hiccups in the background of this phone call.Pt denies any other concerns at this time. [facility] [place] [facility] a script is called in. Please advise Blanquita Hargrove RN documented in this encounter Plan of Treatment Upcoming Encounters Date Type Department Care Team (Latest Contact Info) Description 02/19/2025 11:45 AM EDT Appointment Radiation Oncology [address] [place] [address] Lung 02/19/2025 11:45 AM EDT Nurse Visit Radiation Oncology [address] [place] [address] Mae, Nurse Radt [address] [place] [address] pulse monitoring 02/20/2025 10:30 AM EDT Office Visit Palliative Medicine [address] [place] [address] Kisha Craig, POLICE SERGEANT PRECINCT.LANDING SCALER [address] [place] [address] 4 week follow up 02/20/2025 11:45 AM EDT Appointment Radiation Oncology [address] [place] [address] Lung- Pall med 10:30 02/20/2025 11:45 AM EDT Nurse Visit Radiation Oncology [address] [facility] [place] [address] Mae, Nurse Radt [address] [place] [address] pulse monitoring 02/21/2025 8:00 AM EDT Appointment Radiation Oncology [address] [place] [address] Lung - 845 LAB, 9 MILLS, 930 CHEMO x6 HRS 02/21/2025 8:45 AM EDT Office Visit [facility] Laboratory [address] [place] [address] lab follow up and chemotx Cisplatin + IV MAG - PUT PATIENT BACK ON Wednesday02/21/2025 9:00 AM EDT Visit (SP) Office Hematology/Oncology [address] [place] [address] Kvng Perez MD [address] [place] [address] lab follow up and chemotx Cisplatin + IV MAG - PUT PATIENT BACK ON Wednesday02/21/2025 9:30 AM EDT [facility] Hematology/Oncology [address] [place] [address] Mae, Chair [address] [place] [address] lab follow up and chemotx Cisplatin + IV MAG - PUT PATIENT BACK ON Wednesday02/21/2025 11:45 AM EDT Nurse Visit Radiation Oncology [address] [place] [address] Mae, Nurse Radt [address] [place] [address] pulse monitoring 02/21/2025 12:00 PM EDT Office Visit Radiation Oncology [address] [place] [address] Ezra Moreno MD [address] [place] [address] Location: SA-ON TREATMENT REV 02/22/2025 11:45 AM EDT Appointment Radiation Oncology [address] [place] [address] Lung 02/22/2025 11:45 AM EDT Nurse Visit Radiation Oncology [address] [place] [address] Mason, Nurse Radt [address] [place] [address] pulse monitoring 05/28/2025 11:30 AM EST Office Visit Radiation Oncology [address] [place] [address] Ezra Moreno MD [address] [place] [address] 3-4 month final radiation follow up documented as of this encounter Visit Diagnoses Not on filedocumented in this encounter Care Teams Intellectual Property Counsel Relationship Specialty Start Date End Date Brandi Alvarado APRN.LANDING SCALER [address] [place] [address] PCP - General Nurse Practitioner 10/27/24 Blanquita Hargrove, RN [address] [place] [address] [place] [address] Specialty Director Of Informatics Hematology/Oncology 11/29/24 Kvng Perez MD [address] [place] [address] [place] [address] Physician Hematology/Oncology 11/29/24 Annel Alas LSW Retail Advertising Account Executive 01/08/25 Ricardo Alva RN Specialty Director Of Informatics Hospice & Palliative Medicine 01/23/25 Kisha Craig, POLICE SERGEANT PRECINCT.LANDING SCALER [address] [place] [address] [place] [id number] Hospice & Palliative Medicine 01/23/25 documented as of this encounter
--- OUTSIDE RECORDS SUMMARY | 2025-02-18 17:43 | XMS_ITS | Encounter Summary ---
Author Organization [facility] Address [address] [place] [address] Care Team Providers Care Polarity Tester Name Role Phone Brandi Alvarado TECHNICIAN SUPPORT ASSOCIATION.MEDICAL HOUSEKEEPER Primary Care Provider Blanquita Hargrove RN Unavailable [phone] Kvng Perez MD Unavailable [phone] Annel Alas Unavailable Unavailable Ricardo Alva RN Unavailable Unava ilable Kisha Craig TECHNICIAN SUPPORT ASSOCIATION.MEDICAL HOUSEKEEPER Unavailable + Source Comments In the event this information is protected by the Federal Confidentiality of Alcohol and Drug AbusePatient Records regulations: The Federal rules restrict any use of the information to criminally investigate or prosecute any alcohol or drug abuse patient.[facility] Reason for Visit * Reason Comments Care Coordination Med request Encounter Details Date Type Department Care Team (Late st Contact Info) Description 02/06/2025 Telephone Hematology/Oncology [address] [place], [place] [address] [place] [address] Blanquita Hargrove, RN [address] [place] [address] [place] [address] Care Coordination (Med request) Social History Tobacco Use Types Packs/Day Years [...] is lower risk 9 11/15/2024 Data from: https://www.neighborhoodatlas.medicine.[facility]/. Last address used for calculation [address] 11/15/2024 Sex and Gender Information Value Date Recorded Sex Assigned at Not on file Legal Sex Male 8:04 AM EST Gender Identity Not on file Sexual Orientation Not on file documented as of this encounter Miscellaneous Notes * Telephone Encounter - Blanquita Hargrove RN - 02/06/2025 4:19 PM EDT Pt notified. Blanquita Hargrove RN * Telephone Encounter - Kvng Perez MD - 02/06/2025 4:12 PM EDT I sent baclofen to pharmacy. Thank you * Telephone Encounter - Blanquita Hargrove RN - 02/06/2025 3:53 PM EDT Pt calls stating he continues to have hiccups and would like something called into his pharmacy forhim. [facility] [place]. Thanks Blanquita Hargrove RN documented in this encounter Plan of Treatment Upcoming Encounters Date Type Department Care Team (Latest Contact Info) Description 02/19/2025 11:45 AM EDT Appointment Radiation Oncology [address] [place] [address] [place] [address] Lung 02/19/2025 11:45 AM EDT Nurse Visit Radiation Oncology [address] [place] [address] Mae, Nurse Radt [address] [facility] [place] [address] pulse monitoring 02/20/2025 10:30 AM EDT Office Visit Palliative Medicine [address] [facility] [place] [address] Kisha Craig, TECHNICIAN SUPPORT ASSOCIATION.MEDICAL HOUSEKEEPER [address] [place] [address] 4 week follow up 02/20/2025 11:45 AM EDT Appointment Radiation Oncology [address] [facility] [address] Lung- Pall med 10:30 02/20/2025 11:45 AM EDT Nurse Visit Radiation Oncology [address] [place] [address] Mae, Nurse Radt [address] [facility] [address] pulse monitoring 02/21/2025 8:00 AM EDT Appointment Radiation Oncology [address] [address] Lung - 845 LAB, 9 MILLS, 930 CHEMO x6 HRS 02/21/2025 8:45 AM EDT Office Visit [facility] Laboratory [address] [facility] [address] lab follow up and chemotx Cisplatin + IV MAG - PUT PATIENT BACK ON Wednesday02/21/2025 9:00 AM EDT Visit (SP) Office Hematology/Oncology [address] [facility] [address] Kvng Perez MD [address] [place] [address] lab follow up and chemotx Cisplatin + IV MAG - PUT PATIENT BACK ON Wednesday02/21/2025 9:30 AM EDT [facility] Hematology/Oncology [address] [facility] [address] Mae, Chair [address] [facility] [address] lab follow up and chemotx Cisplatin + IV MAG - PUT PATIENT BACK ON Wednesday02/21/2025 11:45 AM EDT Nurse Visit Radiation Oncology [address] [facility] [address] Mae, Nurse Radt [address] [facility] [address] pulse monitoring 02/21/2025 12:00 PM EDT Office Visit Radiation Oncology [address] [facility] [address] Ezra Moreno MD [address] [facility] [address] Location: SA-ON TREATMENT REV 02/22/2025 11:45 AM EDT Appointment Radiation Oncology [address] [facility] [address] Lung 02/22/2025 11:45 AM EDT Nurse Visit Radiation Oncology [address] [facility] [address] Mae, Nurse Radt [address] [place] [address] pulse monitoring 05/28/2025 11:30 AM EST Office Visit Radiation Oncology [address] [place] [address] [place] [address] Ezra Moreno MD [address] [facility] [address] 3-4 month final radiation follow up documented as of this encounter Visit Diagnoses Not on filedocumented in this encounter Care Teams Polarity Tester Relationship Specialty Start Date End Date Brandi Alvarado APRN.MEDICAL HOUSEKEEPER [facility] [place] [address] PCP - General Nurse Practitioner 10/27/24 Blanquita Hargrove, RN [address] [facility] [address] Specialty Php Mysql Web Developer Hematology/Oncology 11/29/24 Kvng Perez MD [address] [place] [address] Physician Hematology/Oncology 11/29/24 Annel Alas LSW Superintendent Pipelines 01/08/25 Ricardo Alva, RN Specialty Php Mysql Web Developer Hospice & Palliative Medicine 01/23/25 Kisha Craig, TECHNICIAN SUPPORT ASSOCIATION.MEDICAL HOUSEKEEPER [address] [place] [address] Hospice & Palliative Medicine 01/23/25 documented as of this encounter
--- OUTSIDE RECORDS SUMMARY | 2025-02-18 17:43 | XMS_ITS | Encounter Summary ---
Author Organization [facility] Address [address] [place] [address] Care Team Providers Care Plush Brusher Name Role Phone Brandi Alvarado GROCERY BUYER.SUPERVISOR PAINT Primary Care Provider Blanquita Hargrove RN Unavailable [phone] Kvng Perez MD Unavailable [phone] Annel Alas Unavailable Unavailable Ricardo Alva RN Unavailable Unava ilable Kisha Craig GROCERY BUYER.SUPERVISOR PAINT Unavailable + Source Comments In the event this information is protected by the Federal Confidentiality of Alcohol and Drug AbusePatient Records regulations: The Federal rules restrict any use of the information to criminally investigate or prosecute any alcohol or drug abuse patient.[facility] Reason for Visit * Reason Comments Med Change Request Encounter Details Date Type Department Care Team (Late st Contact Info) Description 02/10/2025 Refill Hematology/Oncology [facility] [place] [address] Kvng Perez MD [facility] [place] [address] Med Change Request Social History Tobacco Use Types Packs/Day [...] is lower risk 9 11/15/2024 Data from: https://www.neighborhoodatlas.medicine.[facility].edu/. Last address used for calculation [address] [...] 11:45 AM EDT Appointment Radiation Oncology [address] [place] [address] Lung 02/19/2025 11:45 AM EDT Nurse Visit Radiation Oncology [address] [place] [address] Nurse Mae Radt [address] [place] [address] [place] [address] pulse monitoring 02/20/2025 10:30 AM EDT Office Visit Palliative Medicine [address] [facility] [address] [place] [address] Kisha Craig, GROCERY BUYER.SUPERVISOR PAINT [address] [place] [address] 4 week follow up 02/20/2025 11:45 AM EDT Appointment Radiation Oncology [address] [facility] [place] [address] Lung- Pall med 10:30 02/20/2025 11:45 AM EDT Nurse Visit Radiation Oncology [address] [place] [address] [place] [address] Nurse Mae Radt [address] [facility] [address] pulse monitoring 02/21/2025 8:00 AM EDT Appointment Radiation Oncology [address] [place] [address] Lung - 845 LAB, 9 MILLS, 930 CHEMO x6 HRS 02/21/2025 8:45 AM EDT Office Visit [facility] Laboratory [address] [address] lab follow up and chemotx Cisplatin + IV MAG - PUT PATIENT BACK ON Wednesday02/21/2025 9:00 AM EDT Visit (SP) Office Hematology/Oncology [address] [place] [address] Kvng Perez MD [address] [address] lab follow up and chemotx Cisplatin + IV MAG - PUT PATIENT BACK ON Wednesday02/21/2025 9:30 AM EDT [facility] Hematology/Oncology [address] [address] Mae, Chair 7 [address] [place] [address] lab follow up and chemotx Cisplatin + IV MAG - PUT PATIENT BACK ON Wednesday02/21/2025 11:45 AM EDT Nurse Visit Radiation Oncology [address] [place] [address] Mae, Nurse Radt [address] [place] [address] pulse monitoring 02/21/2025 12:00 PM EDT Office Visit Radiation Oncology [address] [place] [address] Ezra Moreno MD [address] [place] [address] Location: SA-ON TREATMENT REV 02/22/2025 11:45 AM EDT Appointment Radiation Oncology [address] [place] [address] Lung 02/22/2025 11:45 AM EDT Nurse Visit Radiation Oncology [address] [place] [address] Nurse Mae Radt [address] [place] [address] pulse monitoring 05/28/2025 11:30 AM EST Office Visit Radiation Oncology [address] [place] [address] Ezar Moreno MD [address] [address] 3-4 month final radiation follow up documented as of this encounter Visit Diagnoses Not on filedocumented in this encounter Care Teams Plush Brusher Relationship Specialty Start Date End Date Brandi Alvarado, GROCERY BUYER.SUPERVISOR PAINT [facility] [place] [address] PCP - General Nurse Practitioner 10/27/24 Blanquita Hargrove RN [address] [place] [address] [place] [address] Specialty Dope Firer Hematology/Oncology 11/29/24 Kvng Perez MD [address] [place] [address] [place] [address] Physician Hematology/Oncology 11/29/24 Annel Alas LSW [employer]ws Software Development Engineer 01/08/25 Ricardo Alva RN Specialty Dope Firer Hospice & Palliative Medicine 01/23/25 Kisha Craig, GROCERY BUYER.SUPERVISOR PAINT [address] [place] [address] [place] [address] Hospice & Palliative Medicine 01/23/25 documented as of this encounter
--- OUTSIDE RECORDS SUMMARY | 2025-02-18 17:43 | XMS_ITS | Encounter Summary ---
Author Organization [facility] Address [address] [place] [address] Care Team Providers Care Heating Mechanic Name Role Phone Brandi Alvarado TRAUMA PROGRAM MANAGER.STALLION MANAGER Primary Care Provider Blanquita Hargrove RN Unavailable [phone] Kvng Perez MD Unavailable [phone] Annel Alas Unavailable Unavailable Ricardo Alva RN Unavailable Unava ilable Kisha Craig TRAUMA PROGRAM MANAGER.STALLION MANAGER Unavailable + Source Comments In the event this information is protected by the Federal Confidentiality of Alcohol and Drug AbusePatient Records regulations: The Federal rules restrict any use of the information to criminally investigate or prosecute any alcohol or drug abuse patient.[facility] Reason for Visit * Reason Comments Care Coordination Treatment plan Encounter Details Date Type Department Care Team (Late st Contact Info) Description 02/13/2025 Telephone Hematology/Oncology [facility] [place] [address] Blanquita Hargrove, RN [address] [place] [address] [place] [address] Care Coordination (Treatment plan) Social History Tobacco Use Types Packs/Day Years [...] risk 9 11/15/2024 Data from: https://www.neighborhoodatlas.medicine.[facility]/. Last address used for calculation [address] 11/15/2024 Sex and Gender Information Value Date Recorded Sex Assigned at Not on file Legal Sex Male 8:04 AM EST Gender Identity Not on file Sexual Orientation Not on file documented as of this encounter Miscellaneous Notes * Telephone Encounter - Carolina Perdue - 02/13/2025 8:49 AM EDT Patient's schedule has been adjusted. Patient was scheduled to see a provider tomorrow and his radiation was at 11:45 start, so did a different time in the AM to allow for patient to see CANDICE. Thanks! Carolina Perdue * Telephone Encounter - Blanquita Hargrove RN - 02/13/2025 8:40 AM EDT Spoke with treatment lead and pt's appointment tomorrow for chemo needs to be moved up to 1130. Cisis a 4 hour treatment and pt will also be getting IV magnesium pre and post cisplatin. Please adjust schedule and notify pt of any time changes when he is here today for radiation. Thanks Blanquita Hargrove, PRITI documented in this encounter Plan of Treatment Upcoming Encounters Date Type Department Care Team (Latest Contact Info) Description 02/19/2025 11:45 AM EDT Appointment Radiation Oncology [address] [place] [address] [place] [address] Lung 02/19/2025 11:45 AM EDT Nurse Visit Radiation Oncology [address] [place] [address] Mae, Nurse Radt [address] [facility] [place] [address] pulse monitoring 02/20/2025 10:30 AM EDT Office Visit Palliative Medicine [address] [facility] [place] [address] Kisha Craig, TRAUMA PROGRAM MANAGER.STALLION MANAGER [address] [place] [address] 4 week follow up 02/20/2025 11:45 AM EDT Appointment Radiation Oncology [address] [place] [address] Lung- Pall med 10:30 02/20/2025 11:45 AM EDT Nurse Visit Radiation Oncology [address] [place] [address] Mae, Nurse Radt [address] [place] [address] pulse monitoring 02/21/2025 8:00 AM EDT Appointment Radiation Oncology [address] [place] [address] Lung - 845 LAB, 9 MILLS, 930 CHEMO x6 HRS 02/21/2025 8:45 AM EDT Office Visit [facility] [address] [place] [address] lab follow up and chemotx Cisplatin + IV MAG - PUT PATIENT BACK ON Wednesday02/21/2025 9:00 AM EDT Visit (SP) Office Hematology/Oncology [address] [place] [address] Kvng Perez MD [address] [place] [address] lab follow up and chemotx Cisplatin + IV MAG - PUT PATIENT BACK ON Wednesday02/21/2025 9:[address] [facility] Hematology/Oncology [address] [place] [address] Mae, Chair [address] [place] [address] lab follow up and chemotx Cisplatin + IV MAG - PUT PATIENT BACK ON Wednesday02/21/2025 11:45 AM EDT Nurse Visit Radiation Oncology [address] [place] [address] [place] [address] Mae, Nurse Radt [address] [place] [address] [place] [address] pulse monitoring 02/21/2025 12:00 PM EDT Office Visit Radiation Oncology [address] [place] [address] [place] [address] Ezra Moreno MD [address] [place] [address] Location: -ON TREATMENT REV 02/22/2025 11:45 AM EDT Appointment Radiation Oncology [address] [place] [address] [place] [address] Lung 02/22/2025 11:45 AM EDT Nurse Visit Radiation Oncology [address] [place] [address] [place] [address] Mae, Nurse Radt [address] [place] [address] [place] [address] pulse monitoring 05/28/2025 11:30 AM EST Office Visit Radiation Oncology [address] [place] [address] [place] [address] Ezra Moreno MD [address] [place] [address] 3-4 month final radiation follow up documented as of this encounter Visit Diagnoses Not on filedocumented in this encounter Care Teams Heating Mechanic Relationship Specialty Start Date End Date Brandi lAvarado APRN.STALLION MANAGER [address] [place] [address] PCP - General Nurse Practitioner 10/27/24 Blanquita Hargrove, RN [address] [place] [address] Specialty Gravity Flow Irrigator Hematology/Oncology 11/29/24 Kvng Perez MD [address] [facility] [place] [address] Physician Hematology/Oncology 11/29/24 Annel Alas LSW Global Compensation Director 01/08/25 Ricardo Alva, RN Specialty Gravity Flow Irrigator Hospice & Palliative Medicine 01/23/25 Kisha Craig, TRAUMA PROGRAM MANAGER.[facility] [address] [place] [address] Hospice & Palliative Medicine 01/23/25 documented as of this encounter
--- OUTSIDE RECORDS SUMMARY | 2025-02-18 17:43 | XMS_ITS | Encounter Summary ---
Author Organization [facility] Address [address] [place], [place] [id number] Care Team Providers Care Disintegrator Feeder Name Role Phone Brandi Alvarado FASHION ILLUSTRATOR.CONTRACTS PARALEGAL Primary Care Provider Blanquita Hargrove RN Unavailable [phone] Kvng Perez MD Unavailable [phone] Annel Alas Unavailable Unavailable Ricardo Alva RN Unavailable Unava ilable Kisha Craig FASHION ILLUSTRATOR.CONTRACTS PARALEGAL Unavailable + Source Comments In the event this information is protected by the Federal Confidentiality of Alcohol and Drug AbusePatient Records regulations: The Federal rules restrict any use of the information to criminally investigate or prosecute any alcohol or drug abuse patient.[facility] Encounter Details Date Type Department Care Team (Latest Contact Info) Description 12/19/2024 H&P External-NonCCF Provider, External, PADellaC Do not [...] is lower risk 9 11/15/2024 Data from: https://www.neighborhoodatlas.medicine.[facility]/. Last address used for calculation [address] [...] AM EDT Appointment Radiation Oncology [address] [facility] [facility] [address] Lung 02/19/2025 11:45 AM EDT Nurse Visit Radiation Oncology [address] [place] [address] Mae Nurse Radt [address] [place] [address] pulse monitoring 02/20/2025 10:30 AM EDT Office Visit Palliative Medicine [address] [place] [address] Kisha Craig, FASHION ILLUSTRATOR.CONTRACTS PARALEGAL [address] [place] [address] 4 week follow up 02/20/2025 11:45 AM EDT Appointment Radiation Oncology [address] [place] [address] Lung- Pall med 10:30 02/20/2025 11:45 AM EDT Nurse Visit Radiation Oncology [address] [place] [address] Mae Nurse Radt [address] [place] [address] pulse monitoring 02/21/2025 8:00 AM EDT Appointment Radiation Oncology [address] [place] [address] Lung - 845 LAB, 9 MILLS, 930 CHEMO x6 HRS 02/21/2025 8:45 AM EDT Office Visit [facility] Laboratory [address] [facility] [place] [address] lab follow up and chemotx Cisplatin + IV MAG - PUT PATIENT BACK ON Wednesday02/21/2025 9:00 AM EDT Visit (SP) Office Hematology/Oncology [address] [facility] [place] [address] Kvng Perez MD [address] [facility] [place] [address] lab follow up and chemotx Cisplatin + IV MAG - PUT PATIENT BACK ON Wednesday02/21/2025 9:30 AM EDT [facility] Hematology/Oncology [address] [facility] [place] [address] Mae, Chair 7 [address] [facility] [place] [address] lab follow up and chemotx Cisplatin + IV MAG - PUT PATIENT BACK ON Wednesday02/21/2025 11:45 AM EDT Nurse Visit Radiation Oncology [address] [facility] [place] [address] Mae, Nurse Radt [address] [facility] [place] [address] pulse monitoring 02/21/2025 12:00 PM EDT Office Visit Radiation Oncology [address] [facility] [place] [address] Ezra Moreno MD [address] [facility] [place] [address] Location: SA-ON TREATMENT REV 02/22/2025 11:45 AM EDT Appointment Radiation Oncology [address] [facility] [place] [address] Lung 02/22/2025 11:45 AM EDT Nurse Visit Radiation Oncology [address] [facility] [place] [address] Mae, Nurse Radt [address] [facility] [place] [address] pulse monitoring 05/28/2025 11:30 AM EST Office Visit Radiation Oncology [address] [facility] [place] [address] Ezra Moreno MD [address] [facility] [place] [address] 3-4 month final radiation follow up documented as of this encounter Visit Diagnoses Not on filedocumented in this encounter Care Teams Disintegrator Feeder Relationship Specialty Start Date End Date Brandi Alvarado, FASHION ILLUSTRATOR.CONTRACTS PARALEGAL [address] [place] [address] PCP - General Nurse Practitioner 10/27/24 Blanquita Hargrove, RN [address] [facility] [place] [address] Specialty Rough Rice Tender Hematology/Oncology 11/29/24 Kvng Perez MD [address] [place] [address] [place] [address] Physician Hematology/Oncology 11/29/24 Annel Alas LSW Metalworker 01/08/25 Ricardo Alva, RN Specialty Rough Rice Tender Hospice & Palliative Medicine 01/23/25 Kisha Craig, FASHION ILLUSTRATOR.CONTRACTS PARALEGAL [address] [place] [address] [place] [id number] Hospice & Palliative Medicine 01/23/25 documented as of this encounter
--- OUTSIDE RECORDS SUMMARY | 2025-02-18 17:44 | XMS_ITS | Encounter Summary ---
Author Organization [employer] Address [id number] [address] [place] [address] Care Team Providers Care Carpenter Form Name Role Phone Brandi Alvarado Janeth MCLEAN-COMPUTER INFORMATION SYSTEMS PROFESSOR Primary Care Provider [phone] Encounter Details Date Type Department Care Team (Late st Contact Info) Description 11/23/2024 Orders Only [facility] [address] [place] [id number] Reuben Reyna MD [address] [place] [address] [facility] Social History Tobacco Use Types Packs/Day Years Used Date Smoking Tobacco: Former Cigarettes Q uit: 01/04/2017 Smokeless Tobacco: Never Alcohol Use Standard Drinks/Week Comments Not Currently 0 (1 standard drink = 0.6 oz pur e alcohol) [facility] Utilities Answer Date Recorded In the past 12 months has e [employer], gas, oil, or water [employer] threatened to shut off services in your [...] Cardiology [address] [place] [phone] 05/30/2025 12:30 PM EST Office Visit [facility] [address] [place] [address] Bishop Milan, EBD TEACHER-COMPUTER INFORMATION SYSTEMS PROFESSOR [address] [place] [address] documented as of this encounter Goals Goal Patient Goal Type Associated Problems Recent Progress Patient-Stated? Author Discharge home General Yes Faye Chow, PRITI Note: Evaluation of progress towards goal: Pt plans to return home self care with support. documented as of this encounter Procedures Procedure Name Priority Date/Time Associated Diagnosis Comments DEVICE INTERROGATION Routine 11/22/2024 Pacemaker- [place] documented in this encounter Results * Device Interrogation (11/22/2024) Anatomical Region Laterality Modality Other us Reuben Reyna MD CV CARDIAC SERVICES ORDERABLES Final Result documented in this encounter Visit Diagnoses Diagnosis Pacemaker- [place] Cardiac pacemaker in situ documented in this encounter Additional Health Concerns Assessment Noted Time PHQ-9 Depression Total Score: 0 11/10/19 11:28 AM EDT documented as of this encounter Care Teams Carpenter Form Relationship Specialty Start Date End Date Brandi Alvarado, VINAY-COMPUTER INFORMATION SYSTEMS PROFESSOR [address] [place] [address] PCP - General Nurse Practitioner 11/08/24 documented as of this encounter
--- OUTSIDE RECORDS SUMMARY | 2025-02-18 17:44 | XMS_ITS | Encounter Summary ---
Author Organization [facility] Address [address] [place], [place] [id number] Care Team Providers Care Mill Control Operator Name Role Phone Brandi Alvarado FINANCIAL RECORDING CLERK.CHANGE MANAGEMENT CONSULTANT Primary Care Provider Blanquita Hargrove RN Unavailable [phone] Kvng Perez MD Unavailable [phone] Annel Alas Unavailable Unavailable Ricardo Alva RN Unavailable Unava ilable Kisha Craig FINANCIAL RECORDING CLERK.CHANGE MANAGEMENT CONSULTANT Unavailable + Source Comments In the event this information is protected by the Federal Confidentiality of Alcohol and Drug AbusePatient Records regulations: The Federal rules restrict any use of the information to criminally investigate or prosecute any alcohol or drug abuse patient.[facility] Encounter Details Date Type Department Care Team (Latest Contact Info) Description 01/17/2025 H&P External-NonCCF Provider, External, PADellaC Do not [...] lower risk 9 11/15/2024 Data from: https://www.neighborhoodatlas.medicine.[facility]/. Last address used for calculation [address] [...] 11:45 AM EDT Appointment Radiation Oncology [address] [facility] [place] [address] Lung 02/19/2025 11:45 AM EDT Nurse Visit Radiation Oncology [address] [place] [address] Mae Nurse Radt [address] [place] [address] pulse monitoring 02/20/2025 10:30 AM EDT Office Visit Palliative Medicine [address] [place] [address] Kisha Craig, FINANCIAL RECORDING CLERK.CHANGE MANAGEMENT CONSULTANT [address] [place] [address] 4 week follow up 02/20/2025 11:45 AM EDT Appointment Radiation Oncology [address] [place] [address] Lung- Pall med 10:30 02/20/2025 11:45 AM EDT Nurse Visit Radiation Oncology [address] [place] [address] Mae Nurse Radt [address] [place] [address] pulse monitoring 02/21/2025 8:00 AM EDT Appointment Radiation Oncology [address] [place] [address] Lung - 845 LAB, 9 MILLS, 930 CHEMO x6 HRS 02/21/2025 8:45 AM EDT Office Visit [facility] Laboratory [address] [facility] [address] lab follow up and chemotx Cisplatin + IV MAG - PUT PATIENT BACK ON Wednesday02/21/2025 9:00 AM EDT Visit (SP) Office Hematology/Oncology [address] [facility] [address] Kvng Perez MD [address] [place] [address] lab follow up and chemotx Cisplatin + IV MAG - PUT PATIENT BACK ON Wednesday02/21/2025 9:30 AM EDT [facility] Hematology/Oncology [address] [facility] [address] Mae, Chair 7 [address] [facility] [address] lab follow up and chemotx Cisplatin + IV MAG - PUT PATIENT BACK ON Wednesday02/21/2025 11:45 AM EDT Nurse Visit Radiation Oncology [address] [facility] [address] Mae, Nurse Radt [address] [facility] [address] pulse monitoring 02/21/2025 12:00 PM EDT Office Visit Radiation Oncology [address] [facility] [address] Ezra Moreno MD [address] [facility] [address] Location: SA-ON TREATMENT REV 02/22/2025 11:45 AM EDT Appointment Radiation Oncology [address] [facility] [address] Lung 02/22/2025 11:45 AM EDT Nurse Visit Radiation Oncology [address] [facility] [address] Mae, Nurse Radt [address] [facility] [address] pulse monitoring 05/28/2025 11:30 AM EST Office Visit Radiation Oncology [address] [facility] [address] Ezra Moreno MD [address] [facility] [address] 3-4 month final radiation follow up documented as of this encounter Visit Diagnoses Not on filedocumented in this encounter Care Teams Mill Control Operator Relationship Specialty Start Date End Date Brandi Alvarado, FINANCIAL RECORDING CLERK.CHANGE MANAGEMENT CONSULTANT [address] [place] [address] PCP - General Nurse Practitioner 10/27/24 Blanquita Hargrove, RN [address] [facility] [address] Specialty Hand Tier Hematology/Oncology 11/29/24 Kvng Perez MD [address] [place] [address] [place] [address] Physician Hematology/Oncology 11/29/24 Annel Alas LSW Crate Liner 01/08/25 Ricardo Alva, RN Specialty Hand Tier Hospice & Palliative Medicine 01/23/25 Kisha Craig, FINANCIAL RECORDING CLERK.CHANGE MANAGEMENT CONSULTANT [address] [place] [address] [place] [id number] Hospice & Palliative Medicine 01/23/25 documented as of this encounter
--- OUTSIDE RECORDS SUMMARY | 2025-02-18 17:44 | XMS_ITS | Encounter Summary ---
Author Organization [facility] Address [address] [place], [place] [id number] Care Team Providers Care Packager And Strapper Name Role Phone Brandi Alvarado POSTIE.INORGANIC CHEMISTRY PROFESSOR Primary Care Provider Blanquita Hargrove RN Unavailable [phone] Kvng Perez MD Unavailable [phone] Annel Alas Unavailable Unavailable Ricardo Alva RN Unavailable Unava ilable Kisha Craig POSTIE.INORGANIC CHEMISTRY PROFESSOR Unavailable + Source Comments In the event this information is protected by the Federal Confidentiality of Alcohol and Drug AbusePatient Records regulations: The Federal rules restrict any use of the information to criminally investigate or prosecute any alcohol or drug abuse patient.[facility] Encounter Details Date Type Department Care Team (Latest Contact Info) Description 01/03/2025 H&P External-NonCCF Provider, External, PADellaC Do not [...] is lower risk 9 11/15/2024 Data from: https://www.neighborhoodatlas.medicine.[facility]/. Last address used for calculation [address] [...] 11:45 AM EDT Appointment Radiation Oncology [address] [facility] [place] [address] Lung 02/19/2025 11:45 AM EDT Nurse Visit Radiation Oncology [address] [place] [address] Mae Nurse Radt [address] [place] [address] pulse monitoring 02/20/2025 10:30 AM EDT Office Visit Palliative Medicine [address] [place] [address] Kisha Craig, POSTIE.INORGANIC CHEMISTRY PROFESSOR [address] [place] [address] 4 week follow up 02/20/2025 11:45 AM EDT Appointment Radiation Oncology [address] [place] [address] Lung- Pall med 10:30 02/20/2025 11:45 AM EDT Nurse Visit Radiation Oncology [address] [place] [address] Mae Nurse Radt [address] [place] [address] pulse monitoring 02/21/2025 8:00 AM EDT Appointment Radiation Oncology [address] [place] [address] Lung - 845 LAB, 9 MILLS, 930 CHEMO x6 HRS 02/21/2025 8:45 AM EDT Office Visit [facility] Laboratory [address] [address] lab follow up and chemotx Cisplatin + IV MAG - PUT PATIENT BACK ON Wednesday02/21/2025 9:00 AM EDT Visit (SP) Office Hematology/Oncology [address] [facility] [address] Kvng Perez MD [address] [place] [address] lab follow up and chemotx Cisplatin + IV MAG - PUT PATIENT BACK ON Wednesday02/21/2025 9:30 AM EDT [facility] Hematology/Oncology [address] [address] Mae, Chair 7 [address] [place] [address] lab follow up and chemotx Cisplatin + IV MAG - PUT PATIENT BACK ON Wednesday02/21/2025 11:45 AM EDT Nurse Visit Radiation Oncology [address] [address] Mae, Nurse Radt [address] [address] pulse monitoring 02/21/2025 12:00 PM EDT Office Visit Radiation Oncology [address] [address] Ezra Moreno MD [address] [address] Location: SA-ON TREATMENT REV 02/22/2025 11:45 AM EDT Appointment Radiation Oncology [address] [place] [address] Lung 02/22/2025 11:45 AM EDT Nurse Visit Radiation Oncology [address] [address] Mae, Nurse Radt [address] [address] pulse monitoring 05/28/2025 11:30 AM EST Office Visit Radiation Oncology [address] [address] Ezra Moreno MD [address] [facility] [address] 3-4 month final radiation follow up documented as of this encounter Visit Diagnoses Not on filedocumented in this encounter Care Teams Packager And Strapper Relationship Specialty Start Date End Date Brandi Alvarado, POSTIE.INORGANIC CHEMISTRY PROFESSOR [address] [place] [address] PCP - General Nurse Practitioner 10/27/24 Blanqutia Hargrove, RN [address] [facility] [address] Specialty Bed Control Specialist Hematology/Oncology 11/29/24 Kvng Perez MD [address] [place] [address] [place] [address] Physician Hematology/Oncology 11/29/24 Annel Alas LSW Food Manager 01/08/25 Ricardo Alva, RN Specialty Bed Control Specialist Hospice & Palliative Medicine 01/23/25 Kisha Craig, POSTIE.INORGANIC CHEMISTRY PROFESSOR [address] [place] [address] [place] [id number] Hospice & Palliative Medicine 01/23/25 documented as of this encounter
--- OUTSIDE RECORDS SUMMARY | 2025-02-18 17:44 | XMS_ITS | Encounter Summary ---
Author Organization [facility] Address [address] [place] [address] Care Team Providers Care Roller Print Tender Name Role Phone Brandi Alvarado HOSPITAL WELLNESS COORDINATOR.SONOGRAPHER Primary Care Provider Blanquita Hargrove RN Unavailable [phone] Kvng Perez MD Unavailable [phone] Annel Alas Unavailable Unavailable Ricardo Alva RN Unavailable Unava ilable Kisha Craig HOSPITAL WELLNESS COORDINATOR.SONOGRAPHER Unavailable + Source Comments In the event this information is protected by the Federal Confidentiality of Alcohol and Drug AbusePatient Records regulations: The Federal rules restrict any use of the information to criminally investigate or prosecute any alcohol or drug abuse patient.[facility] Reason for Visit * Reason Comments FMLA Paperwork Encounter Details Date Type Department Care Team (Late st Contact Info) Description 02/15/2025 Telephone Hematology/Oncology [address] [place] [address] [place] [address] Kvng Perez MD [address] [place] [address] [place] [address] FMLA Paperwork Social History Tobacco Use Types Packs/Day [...] is lower risk 9 11/15/2024 Data from: https://www.neighborhoodatlas.medicine.[facility]/. Last address used for calculation [address] 11/15/2024 Sex and Gender Information Value Date Recorded Sex Assigned at Not on file Legal Sex Male 8:04 AM EST Gender Identity Not on file Sexual Orientation Not on file documented as of this encounter Miscellaneous Notes * Telephone Encounter - Dara Vásquez MA - 02/15/2025 12:52 PM EDT Brian Roa (son) called the fax copy of his [facility] paperwork never went through. So,he is requesting that his paperwork be sent through email at [email or web address] and to [email or web address]. Done with success. Dara Vásquez MA documented in this encounter Plan of Treatment Upcoming Encounters Date Type Department Care Team (Latest Contact Info) Description 02/19/2025 11:45 AM EDT Appointment Radiation Oncology [address] [facility] [place] [address] Lung 02/19/2025 11:45 AM EDT Nurse Visit Radiation Oncology [address] [place] [address] Mae, Nurse Radt [address] [place] [address] pulse monitoring 02/20/2025 10:30 AM EDT Office Visit Palliative Medicine [address] [place] [address] Kisha Craig, HOSPITAL WELLNESS COORDINATOR.SONOGRAPHER [address] [place] [address] 4 week follow up 02/20/2025 11:45 AM EDT Appointment Radiation Oncology [address] [facility] [place] [address] Lung- Pall med 10:30 02/20/2025 11:45 AM EDT Nurse Visit Radiation Oncology [address] [facility] [place] [address] Mae, Nurse Radt [address] [facility] [place] [address] pulse monitoring 02/21/2025 8:00 AM EDT Appointment Radiation Oncology [address] [facility] [place] [address] Lung - 845 LAB, 9 MILLS, 930 CHEMO x6 HRS 02/21/2025 8:45 AM EDT Office Visit [facility] [address] [facility] [place] [address] lab follow up and chemotx Cisplatin + IV MAG - PUT PATIENT BACK ON Wednesday02/21/2025 9:00 AM EDT Visit (SP) Office Hematology/Oncology [address] [facility] [place] [address] Kvng Perez MD [address] [facility] [place] [address] lab follow up and chemotx Cisplatin + IV MAG - PUT PATIENT BACK ON Wednesday02/21/2025 9:30 AM EDT [facility] Hematology/Oncology [address] [facility] [place] [address] Mae, Chair 7 [address] [facility] [place] [address] lab follow up and chemotx Cisplatin + IV MAG - PUT PATIENT BACK ON Wednesday02/21/2025 11:45 AM EDT Nurse Visit Radiation Oncology [address] [facility] [place] [address] Mae, Nurse Radt [address] [facility] [place] [address] pulse monitoring 02/21/2025 12:00 PM EDT Office Visit Radiation Oncology [address] [facility] [place] [address] Ezra Moreno MD [address] [facility] [place] [address] Location: -ON TREATMENT REV 02/22/2025 11:45 AM EDT Appointment Radiation Oncology [address] [facility] [place] [address] Lung 02/22/2025 11:45 AM EDT Nurse Visit Radiation Oncology [address] [facility] [place] [address] Mae, Nurse Radt [address] [facility] [place] [address] pulse monitoring 05/28/2025 11:30 AM EST Office Visit Radiation Oncology [address] [place] [address] [place] [address] Ezra Moreno MD [address] [facility] [place] [address] 3-4 month final radiation follow up documented as of this encounter Visit Diagnoses Not on filedocumented in this encounter Care Teams Roller Print Tender Relationship Specialty Start Date End Date Brandi Alvarado HOSPITAL WELLNESS COORDINATOR.SONOGRAPHER [address] [place] [address] PCP - General Nurse Practitioner 10/27/24 Blanquita Hargrove RN [address] [place] [address] [place] [address] Specialty Bus Boy Hematology/Oncology 11/29/24 Kvng Perez MD [address] [place] [address] [place] [address] Physician Hematology/Oncology 11/29/24 Annel Alas LSW Netting Weaver 01/08/25 Ricardo Alva RN Specialty Bus Boy Hospice & Palliative Medicine 01/23/25 Kisha Craig, HOSPITAL WELLNESS COORDINATOR.SONOGRAPHER [address] [place] [address] [place] [address] Hospice & Palliative Medicine 01/23/25 documented as of this encounter
--- OUTSIDE RECORDS SUMMARY | 2025-02-18 17:44 | XMS_ITS | Encounter Summary ---
Author Organization [facility] Address [facility] [place] [address] Care Team Providers Care Adjutant General Name Role Phone Brandi Alvarado BISQUE FINISHER.HEAD OF PHYSICS Primary Care Provider Blanquita Hargrove RN Unavailable [phone] Kvng Perez MD Unavailable [phone] Annel Alas Unavailable Unavailable Ricardo Alva RN Unavailable Unava ilable Sheila Freeman BISQUE FINISHER.HEAD OF PHYSICS Unavailable + Source Comments In the event this information is protected by the Federal Confidentiality of Alcohol and Drug AbusePatient Records regulations: The Federal rules restrict any use of the information to criminally investigate or prosecute any alcohol or drug abuse patient.[facility] Reason for Visit * Reason Comments Med Change Request Encounter Details Date Type Department Care Team (Late st Contact Info) Description 02/14/2025 Refill Palliative Medicine [address] [place] [address] [place] [address] Sheila Freeman, BISQUE FINISHER.HEAD OF PHYSICS [address] [place], [place] [id number] Med Change Request Social History Tobacco Use [...] is lower risk 9 11/15/2024 Data from: https://www.neighborhoodatlas.medicine.[facility]/. Last address used for calculation [address] 11/15/2024 Sex and Gender Information Value Date Recorded Sex Assigned at Not on file Legal Sex Male 8:04 AM EST Gender Identity Not on file Sexual Orientation Not on file documented as of this encounter Miscellaneous Notes * Telephone Encounter - Amanda Hsieh RN - 02/15/2025 3:51 PM EDT The following approved medication requests have been transmitted electronically. Requested Prescriptions Signed Prescriptions Disp Refills Ipratropium Lennon (ATROVENT) 21 mcg (0.03 %) nasal spray 90 mL 2 Sig: USE 2 SPRAYS IN THE NOSE TWO TIMES A DAY. Authorizing Provider: SHEILA FREEMAN RN * Telephone Encounter - Amanda Hsieh RN - 02/14/2025 2:16 PM EDT Pharmacy sends request for 90 day Rx of Ipratropium nasal spray. Order pended if provider agreeable. Thank you, Amanda Hsieh RNCC, PN Fire Hydrant Mechanic documented in this encounter Plan of Treatment Upcoming Encounters Date Type Department Care Team (Latest Contact Info) Description 02/19/2025 11:45 AM EDT Appointment Radiation Oncology [address] [place] [address] [place] [address] Lung 02/19/2025 11:45 AM EDT Nurse Visit Radiation Oncology [address] [facility] [place] [address] Mae, Nurse Radt [address] [facility] [place] [address] pulse monitoring 02/20/2025 10:30 AM EDT Office Visit Palliative Medicine [address] [facility] [address] [address] Sheila Freeman, BISQUE FINISHER.HEAD OF PHYSICS [address] [id number] 4 week follow up 02/20/2025 11:45 AM EDT Appointment Radiation Oncology [address] [facility] [place] [address] Lung- Pall med 10:30 02/20/2025 11:45 AM EDT Nurse Visit Radiation Oncology [address] [facility] [place] [address] Mae, Nurse Radt [address] [facility] [place] [address] pulse monitoring 02/21/2025 8:00 AM EDT Appointment Radiation Oncology [address] [facility] [place] [address] Lung - 845 LAB, 9 [address]ILLS, 930 CHEMO x6 HRS 02/21/2025 8:45 AM EDT Office Visit [facility] [address] [facility] [place] [address] lab follow up and chemotx Cisplatin + IV MAG - PUT PATIENT BACK ON Wednesday02/21/2025 9:00 AM EDT Visit (SP) Office Hematology/Oncology [address] [facility] [place] [address] Kvng Perez MD [address] [facility] [place] [address] lab follow up and chemotx Cisplatin + IV MAG - PUT PATIENT BACK ON Wednesday02/21/2025 9:30 AM EDT [facility] Hematology/Oncology [address] [facility] [place] [address] Mae, Chair [address] [facility] [place] [address] lab follow up and chemotx Cisplatin + IV MAG - PUT PATIENT BACK ON Wednesday02/21/2025 11:45 AM EDT Nurse Visit Radiation Oncology [address] [facility] [place] [address] Mae, Nurse Radt [address] [facility] [place] [address] pulse monitoring 02/21/2025 12:00 PM EDT Office Visit Radiation Oncology [address] [place] [address] [place] [address] Ezra Moreno MD [address] [facility] [place] [address] Location: -ON TREATMENT REV 02/22/2025 11:45 AM EDT Appointment Radiation Oncology [address] [place] [address] [place] [address] Lung 02/22/2025 11:45 AM EDT Nurse Visit Radiation Oncology [address] [place] [address] [place] [address] Mae, Nurse Radt [address] [facility] [place] [address] pulse monitoring 05/28/2025 11:30 AM EST Office Visit Radiation Oncology [address] [place] [address] [place] [address] Ezra Moreno MD [address] [facility] [place] [address] 3-4 month final radiation follow up documented as of this encounter Visit Diagnoses Diagnosis Rhinorrhea Other diseases of nasal cavity and sinuses documented in this encounter Care Teams Adjutant General Relationship Specialty Start Date End Date Brandi Alvarado APRN.HEAD OF PHYSICS [address] [place] [id number] PCP - General Nurse Practitioner 10/27/24 Blanquita Hargrove RN [address] [facility] [place] [address] Specialty It Trainer Hematology/Oncology 11/29/24 Kvng Perez MD [address] [facility] [place] [address] Physician Hematology/Oncology 11/29/24 Annel Alas LSW Vertical Roll Operator 01/08/25 Ricardo Alva, RN Specialty It Trainer Hospice & Palliative Medicine 01/23/25 Sheila Freeman, BISQUE FINISHER.[facility] [address] [place] [address] Hospice & Palliative Medicine 01/23/25 documented as of this encounter
--- OUTSIDE RECORDS SUMMARY | 2025-02-18 17:44 | XMS_ITS | CCD ---
Author Organization [facility] Care Team Providers Care Doormaker Name Role Phone DR ALINA RAGLAND Admitting Unavailable RICARDO, DR ALINA Patterson Primary Care Unavailable RICARDO, DR ALINA Patterson Consulting Unavailable RICARDO, DR ALINA Patterson Attending Unavailable SANDRA, VICTORIA Attending Unavailable RICARDO, DR ALINA Patterson Primary Care Unavailable ANA, DR FREIDA Lagos Consulting Unavailable SANDRA, VICTORIA Admitting Unavailable WEI ASH Consulting Unavailable SANDRA, VICTORIA Consulting Unavailable SANDRA, VICTORIA Attending Unavailable RICAROD, DR ALINA Patterson Primary Care Unavailable SANDRA, VICTORIA Admitting Unavailable SANDRA, VICTORIA Consulting Unavailable ALINA RAGLAND Primary Care Physician Alina Ragland MD Primary Care Provider [phone] Tonja De Oliveira APRN Attending Provider Unavailable Primary Care Provider Unavailabl e Chip Carbajal DO Attending Provider Doug Bowles Primary Care Provider [phone] Dennis 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.Carlos POTTER Primary Care Provider Alina Ragland MD Primary Care Provider [phone] Dennis 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-Carlos POTTER Primary Care Provider [phone] MARITZA BEST Attending Unavailable ALINA RAGLAND Referring Unavailable CARLOS COLLINS Primary Care Unavailable DENNISCARLOS SAWANT Primary Care Unavailable MITZY DOLL Attending Unavailable BRIAFARTUN JULIAN Attending Unavailable FARTUN KAPLAN Referring Unavailable CARLOS COLLINS Primary Care Unavailable Delvin MARCOS, Blanquita Chacon Unavailable [phone] Ana MEDINA, Rasheed Unavailable Dennis 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.ABBEY, Carlos Perry Primary Care Provider Britni PALMA, Dominic Cuevas Emergency Provider [phone] Dennis MCCAINC, Carlos Perry Primary Care Provider Panfilo MEDINA, Norah Admit Provider [phone] Panfilo MEDINA, Norah Attending Provider Shola KEARNEY, Annel Unavailable Unavailable Carlos Collins Primary Care Physician Angelica Lawler DO Emergency Provider Hayes Olivarez DO Admit Provider Hayes Olivarez DO Attending Provider Hayes Olivarez DO Other Provider Jim MARCOS, Alina Other Provider Unavailable Mell Holloway DO Other Provider Andrea MEDINA, Amador Other Provider Eddie Tirado MD Other Provider Mello MEDINA, Librado Other Provider Vick Lai MD Other Provider Mimi Vásquez APRN Other Provider Vikash MEDINA, Lora Other Provider Lavelle MEDINA, Cielo Kilgore Other Provider Jada Vinson MD Other Provider Jamie [facility], Elise Fowler Other Provider Shane Altamirano DO Other Provider Shannan Ramirez APRN Other Provider Amarilys Jones DO Other Provider Neftali Motley DO Other Provider Ari Locke DO Other Provider Cristina Luis APRN Other Provider Elroy MEDINA, Justin Flores Attending Provider Elroy MEDINA, Justin Flores Other Provider [phone] Manfred MEDINA, Ana Lilia Oseguera Other Provider [phone] Kusum MEDINA, Ari Chacon Other Provider Colin Rajput DO Other Provider Sam DO, Chip P Other Provider Angelique MEDINA, Azalea Other Provider Elissa MEDINA, Cristian Flores Other Provider Gary MEDINA, Nilay Other Provider Yossi MEDINA, Ana Maria Fowler Other Provider Philippe Epps MD Attending Provider Tonja De Oliveira Attending Unavailable Tonja De Oliveira Admitting Unavailable Alina Ragland Primary Care Unavailable Hayes Olivarez Admitting Unavailable Hayes Olivarez Attending Unavailable Carlos Collins Primary Care Unavailable Shane Altamirano Consulting Unavailable Shannan Ramirez Consulting Unavailable Amarilys Jones Consulting Unavailable Neftali Motley Consulting Unavailable Ari Locke Consulting Unavailable Cristina Luis Consulting Unavailable Justin Abbasi Consulting Unavaila asad Shearer, Ana Lilia Oseguera Consulting Unavailable Ari Noe Consulting Unavailable Colin Rajput Consulting Unavailable Samsa, Chip P Consulting Unavailable Angelique Basem Consulting Unavailable Cristian Bowers Consulting Un available Gary Bascristal Consulting Unavailable Ana Maria Sy Consulting UnavailHayes Orellana Consulting Unavailable Maria Estherskiene, Norah Admitting Unavailable Norah Whittaker Attending Unavailable Carlos Collins Primary Care Unavailable Samsa, Chip P Admitting Unavailable Samsa, Chip P Attending Unavailable Nida RN, Ricardo Patterson Unavailable Unava ilaram Freeman 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 FLATBED, Sheila J Unavailable Ana MEDINA, Rasheed Unavailable [phone] Carlos Collins Attending Unavailable VARUN, CATRACHO Patterson Attending Unavailable Dennis, Carlos L Attending Unavailable Dennis, Carlos L Attending Unavailable Dennis, Carlos Fowler Attending Unavailable VICTORIA FLORES Attending Unavailable SAMSA, CHIP Gary Attending Unavailable SAMSA, CHIP Gary Referring Unavailable Dennis, Carlos L Admitting Unavailable Dennis, Carlos L Admitting Unavailable Dennis, Carlos L Admitting Unavailable VARUN, CATRACHO A Admitting Unavailable Dennis, Carlos L Attending Unavailable Dennis, Carlos L Attending Unavailable VARUN, CATRACHO A Attending Unavailable Dennis, Carlos L Attending Unavailable RAGLAND, ALINA A Referring Unavailable RAGLAND, ALINA A Primary Care Unavailable RAGLANDALINA Referring Unavailable RAGLAND, ALINA Patterson Primary Care Unavailable DENNIS, CARLOS L Referring Unavailable DENNIS, CARLOS L Primary Care Unavailable DENNIS, CARLOS Fowler Primary Care Unavailable IDANIA BARNEY Attending Unavailable IDANIA BARNEY Admitting Unavailable FARTUN KAPLAN Unavailable MITZY DOLL Referring Unavailable DENNIS, CARLOS L Referring Unavailable DENNIS, CARLOS L Primary Care Unavailable DENNIS, CARLOS L Referring Unavailable DENNIS, CARLOS L Primary Care Unavailable BJORNSHOLA Montiel Attending Unavailable DENNIS, CARLOS L Referring Unavailable DENNIS, CARLOS L Primary Care Unavailable DENNIS, CARLOS L Referring Unavailable DENNIS, CARLOS Fowler Primary Care Unavailable DENNIS, CARLOS L Referring Unavailable DENNIS, CARLOS L Primary Care Unavailable BJORNSHOLA Attending Unavailable DENNIS, CARLOS Fowler Primary Care Unavailable DENNIS, CARLOS L Referring Unavailable DENNIS, CARLOS L Primary Care Unavailable DENNIS, CARLOS L Referring Unavailable BJORNSHOLA Attending Unavailable DENNIS, CARLOS PERRY Primary Care Unavailable VENNEPUREDRASHEED WOODY Referring Unavailable MARVINTRISTIN Attending Unavailable DENNIS, CARLOS PERRY Primary Care Unavailable EZRA LIZAMA Referring Unavailable DENNIS, CARLOS PERRY Primary Care Unavailable EZRA LIZAMA Attending Unavailable DENNIS, CARLOS PERRY Primary Care Unavailable WILLIAN FALCON Referring Unava ilable LOW, SEE-MOOSE Attending Unavailable LOW, SEE-MOOSE Admitting Unavailable DENNIS, CARLOS PERRY Primary Care Unavailable EZRA LIZAMA Referring Unavailable DENNIS, CARLOS PERRY Primary Care Unavailable DENNIS, CARLOS PERRY Primary Care Unavailable DENNIS, CARLOS PERRY Primary Care Unavailable EZRA LIZAMA Referring Unavailable DENNIS, CARLOS PERRY Primary Care Unavailable DENNIS, CARLOS PERRY Primary Care Unavailable EZRA LIZAMA Attending Unavailable DENNIS, CARLOS PERRY Primary Care Unavailable DENNIS, CARLOS PERRY Primary Care Unavailable VENNEPUREDDY, RASHEED Referring Unavailable VENNEPUREDDY, RASHEED Attending Unavailable DENNIS, CRALOS PERRY Primary Care Unavailable VENNEPUREDDY, RASHEED Referring Unavailable DENNIS, CARLOS PERRY Primary Care Unavailable EZRA LIZAMA Referring Unavailable DENNIS, CARLOS PERRY Primary Care Unavailable DENNIS, CARLOS EPRRY Primary Care Unavailable VENNEPUREDDY, RASHEED Referring Unavailable DENNIS, CARLOS PERRY Primary Care Unavailable EZRA LIZAMA Referring Unavailable DENNIS, CARLOS PERRY Primary Care Unavailable EZRA LIZAMA Referring Unavailable DENNIS, CARLOS PERRY Primary Care Unavailable DENNIS, CARLOS PERRY Primary Care Unavailable VENNEPUREDDY, RASHEED Referring Unavailable SHEILA FREEMAN Attending Unavailabl e DENNIS, CARLOS PERRY Primary Care Unavailable EZRA LIZAMA Referring Unavailable DENNIS, CARLOS PERRY Primary Care Unavailable DENNIS, CARLOS PERRY Primary Care Unavailable DENNIS, CARLOS PERRY Primary Care Unavailable EZRA LIZAMA Referring Unavailable DENNIS, CARLOS PERRY Primary Care Unavailable DENNIS, CARLOS PERRY Primary Care Unavailable EZRA LIZAMA Referring Unavailable DENNIS, CARLOS PERRY Primary Care Unavailable VENNEPUREDDY, RASHEED Referring Unavailable DENNIS, CARLOS PERRY Primary Care Unavailable VENNEPUREDDY, RASHEED Referring Unavailable DENNIS, CARLOS PERRY Primary Care Unavailable EZRA LIZAMA Referring Unavailable DENNIS, CARLOS PERRY Primary Care Unavailable VENNEPUREDDY, RASHEED Referring Unavailable DENNIS, CARLOS PERRY Primary Care Unavailable VENNEPUREDDY, RASHEED Referring Unavailable EZRA LIZAMA Attending Unavailable DENNIS, CARLOS PERRY Primary Care Unavailable EZRA LIZAMA Attending Unavailable DENNIS, CARLOS PERRY Primary Care Unavailable VENNEPUREDDY, RASHEED Referring Unavailable DENNIS, CARLOS PERRY Primary Care Unavailable DENNIS, CARLOS PERRY Primary Care Unavailable VENNEPUREDDY, RASHEED Referring Unavailable DENNIS, CARLOS PERRY Primary Care Unavailable EZRA LIZAMA Referring Unavailable DENNIS, CARLOS PERRY Primary Care Unavailable ALDA, EZRA Referring Unavailable DENNIS, CARLOS PERRY Primary Care Unavailable CHIP CARBAJAL Referring Unavailable VENNEPUREDDY, RASHEED Attending Unavailable DENNIS, CARLOS PERRY Primary Care Unavailable BEE PABON Attending Unavailable DENNIS, CARLOS PERRY Primary Care Unavailable LOW SEESUSAN Attending Unavailable DENNIS, CARLOS PERRY Primary Care Unavailable VENNEPUREDDY, RASHEED Referring Unavailable DENNIS, CARLOS PERRY Primary Care Unavailable EZRA LIZAMA Referring Unavailable DENNIS, CARLOS BERKLEY Primary Care Unavailable DENNIS, CARLOS BERKLEY Primary Care Unavailable DENNIS, CARLOS BERKLEY Primary Care Unavailable DENNIS, CARLOS BERKLEY Primary Care Unavailable VENNEPUREDDY, RASHEED Attending Unavailable DENNIS, CARLOS PERRY Primary Care Unavailable VENNEPUREDDY, RASHEED Referring Unavailable DENNIS, CARLOS PERRY Primary Care Unavailable EZRA LIZAMA Referring Unavailable DENNIS, CARLOS PERRY Primary Care Unavailable DENNIS, CARLOS BERKLEY Primary Care Unavailable VENNEPUREDDY, RASHEED Referring Unavailable DENNIS, CARLOS BERKLEY Primary Care Unavailable DENNIS, CARLOS BERKLEY Primary Care Unavailable EZRA LIZAMA Referring Unavailable DENNIS, CARLOS BERKLEY Primary Care Unavailable VENNEPUREDDY, RASHEED Referring Unavailable DENNIS, CARLOS BERKLEY Primary Care Unavailable VENNEPUREDDY, RASHEED Referring Unavailable DENNIS, CARLOS BERKLEY Primary Care Unavailable DENNIS, CARLOS PERRY Primary Care Unavailable EZRA LIZAMA Referring Unavailable DENNIS, CARLOS BERKLEY Primary Care Unavailable VENNEPUREDDY, RASHEED Referring Unavailable DENNIS, CARLOS BERKLEY Primary Care Unavailable MARYURI LOWERY Referring Unavail able DENNIS, CARLOS BERKLEY Primary Care Unavailable VENNEPUREDDY, RASHEED Referring Unavailable EZRA LIZAMA Attending Unavailable DENNIS, CARLOS BERKLEY Primary Care Unavailable VENNEPUREDDY, RASHEED Referring Unavailable VENNEPUREDDY, RASHEED Attending Unavailable DENNIS, CARLOS PERRY Primary Care Unavailable DENNIS, CARLOS PERRY Primary Care Unavailable VENNEPUREDDY, RAHSEED Referring Unavailable DENNIS, CARLOS PERRY Primary Care Unavailable DENNIS, CARLOS PERRY Primary Care Unavailable LOW, SEE-MOOSE Attending Unavailable LOW, SEE-MOOSE Admitting Unavailable DENNIS, CARLOS PERRY Primary Care Unavailable EZRA LIZAMA Referring Unavailable DENNIS, CARLOS PERRY Primary Care Unavailable EZRA LIZAMA Referring Unavailable EZRA LIZAMA Attending Unavailable DENNIS, CARLOS PERRY Primary Care Unavailable DENNIS, CARLOS PERRY Primary Care Unavailable DENNIS, CARLOS PERRY Primary Care Unavailable VENNEPUREDDY, RASHEED Referring Unavailable DENNIS, CARLOS PERRY Primary Care Unavailable DENNIS, CARLOS PERRY Primary Care Unavailable VENNEPUREDDY, RASHEED Attending Unavailable DENNIS, CARLOS PERRY Primary Care Unavailable EZRA LIZAMA Referring Unavailable DENNIS, CARLOS PERRY Primary Care Unavailable DENNIS, CARLOS PERRY Primary Care Unavailable EZRA LIZAMA Attending Unavailable DENNIS, CARLOS PERRY Primary Care Unavailable VENNEPUREDDY, RASHEED Attending Unavailable DENNIS, CARLOS PERRY Primary Care Unavailable DENNIS, CARLOS PERRY Primary Care Unavailable VENNEPUREDDY, RASHEED Referring Unavailable DENNIS, CARLOS PERRY Primary Care Unavailable VENNEPUREDDY, RASHEED Referring Unavailable DENNIS, CARLOS PERRY Primary Care Unavailable DENNIS, CARLOS PERRY Primary Care Unavailable VENNEPUREDDY, RASHEED Referring Unavailable DENNIS, CARLOS PERRY Primary Care Unavailable EZRA LIZAMA Referring Unavailable DENNIS, CARLOS PERRY Primary Care Unavailable DENNIS, CARLOS PERRY Primary Care Unavailable VENNEPUREDDY, RASHEED Referring Unavailable EZRA LIZAMA Referring Unavailable DENNIS, CARLOS PERRY Primary Care Unavailable DENNIS, CARLOS PERRY Primary Care Unavailable VENNEPUREDDY, RASHEED Referring Unavailable DENNIS, CARLOS PERRY Primary Care Unavailable VENNEPUREDDY, RASHEED Referring Unavailable DENNIS, CARLOS PERRY Primary Care Unavailable DENNIS, CARLOS PERRY Primary Care Unavailable EZRA LIZAMA Referring Unavailable DENNIS, CARLOS PERRY Primary Care Unavailable DENNIS, CARLOS PERRY Primary Care Unavailable VENNEPUREDDY, RASHEED Referring Unavailable DENNIS, CARLOS PERRY Primary Care Unavailable VENNEPUREDDY, RASHEED Referring Unavailable VENNEPUREDDY, RASHEED Attending Unavailable DENNIS, CARLOS PERRY Primary Care Unavailable VENNEPUREDDY, RASHEED Referring Unavailable DENNIS, CARLOS PERRY Primary Care Unavailable DENNIS, CARLOS PERRY Primary Care Unavailable VENNEPUREDDY, RASHEED Attending Unavailable DENNIS, CARLOS PERRY Primary Care Unavailable VENNEPUREDDY, RASHEED Referring Unavailable DENNIS, CARLOS PERRY Primary Care Unavailable ALDA, EZRA Referring Unavailable DENNIS, CARLOS PERRY Primary Care Unavailable DENNIS, CARLOS PERRY Primary Care Unavailable DENNIS, CARLOS PERRY Primary Care Unavailable VENNEPUREDDY, RASHEED Referring Unavailable DENNIS, CARLOS PERRY Primary Care Unavailable DENNIS, CARLOS PERRY Primary Care Unavailable DENNIS, CARLOS PERRY Primary Care Unavailable ENGELEROswaldo Attending Unavailable DENNIS, CARLOS PERRY Primary Care Unavailable ENGELEROswaldo Referring Unavailable ENGELER G PANFILO Attending Unavailable DENNIS, CARLOS PERRY Primary Care Unavailable VENNEPUREDDY, RASHEED Referring Unavailable DNENIS, CARLOS PERRY Primary Care Unavailable ALDA, EZRA Referring Unavailable DENNIS, CARLOS PERRY Primary Care Unavailable SELF Referring Unavailable DENNIS, CARLOS PERRY Primary Care Unavailable ALDA, EZRA Referring Unavailable DENNIS, CARLOS PERRY Primary Care Unavailable DENNIS, CARLOS PERRY Primary Care Unavailable ALDA, EZRA Attending Unavailable DENNIS, CARLOS PERRY Primary Care Unavailable ALDA, EZRA Referring Unavailable DENNIS, CARLOS PERRY Primary Care Unavailable Allergies Allergy Classification Reported Allergen(s) Allergy Type Date of Onset Reaction(s) Facility (2 sources) Sulfamethoxazole / Trimethoprim; Translations: [Bactrim] Drug Allergy 07-22-19 21 [facility] Repository (20 sources) Sulfamethoxazole; Translations: [sulfamethoxazole] Drug Allergy 09-01-19 25 Other: See Comments, Unknown, Other (See Comments), GI Disturbance [facility] (20 sources) Sulfamethoxazole / Trimethoprim; Translations: [sulfamethoxazole-t rimethoprim] Drug Allergy 12-18-19 17 Other: See Comments [facility] (2 sources) Pollen 1 Allergy to substance Watery eye (finding), Eye swelling (finding) [facility] Comment on above: Pt only has allergy to [place] Pollen (8 sources) [place] pollen Allergy to substance 08-11-19 19 Eyes swell shut;sneezing [facility] (8 sources) Trimethoprim Drug Allergy 09-01-19 25 Unable to urinate [facility] (20 sources) Codeine; Translations: [CODEINE] Drug Allergy 10-26-19 Other: See Comments, diaphoresis, Sweating (finding) [facility] (4 sources) Sulfamethoxazole / Trimethoprim; Translations: [SULFAMETHOXAZOLE-T RIMETHOPRIM] Drug Allergy 12-18-19 [facility] Repository (20 sources) PACLitaxel; Translations: [PACLITAXEL] Drug Allergy 01-09-20 Other: See Comments, Anaphylaxis [facility] (20 sources) Polysorbate 80; Translations: [POLYSORBATE 80] Drug Allergy 01-09-20 Anaphylaxis [facility] (20 sources) Cremophor El (Polyethoxlated [place] Oil); Translations: [CREMOPHOR EL (POLYETHOXLATED [place]STOR OIL)] Drug Allergy 01-09-20 Anaphylaxis [facility] Work Phone: (6 sources) aprepitant; Translations: [APREPITANT] Drug Allergy 01-12-20 [facility] (6 sources) Etoposide; Translations: [ETOPOSIDE] Drug Allergy 01-12-20 [facility] (1 source) fosaprepitant Drug Allergy 01-18-20 [facility] (1 source) Pollen; Translations: [Pollen] Propensity to adverse reactions (disorder) [facility] Repository Medications Current Medications Medication Drug Class(es) Dates Sig (Normalized) Sig (Original) acetaminophen 500 mg oral capsule (20 sources) Start: 01-15-2025 take 2 capsules by mouth four times daily as needed for pain take 1 tablet by bandar th every six hours as needed for pain acetaminophen (TYLENOL EXTRA STRENGTH) 5 00 mg tablet Take 1 tablet (500 mg total) by mouth every 6 (six) hours as needed for pain. Active take 6 capsules by mouth once da see Acetaminophen 500 mg cap Take 500 mg by mouth once daily. Takes aout 6 a day Active sensor 200 actuat albuterol 0.09 mg/actuat dry powder inhaler (20 sources) beta2-Adrenergic Agonist Start: 01-15-2025 Start: 01-06-2025 End: 01-15-2025 Albuterol Sulfate 90 mcg/act uation aero powdr breath act w/sensor Discontinued 2 INH INHALATION EVERY 4-6 HOURS as needed for shortness of breath or wheezing January 06, 2025 12:00am January 15, 2025 9:38am Start: 12-05-2024 take 2.5 mg by inhal ation every six hours for wheezing albuterol 0.083% Inh Vianca 3 mL 2.5 mg, 3 mL, Inhalation, q6hr for wheezing, 60 EA, Refill(s) 0, [facility]/pharmacy #[id number], 172, cm, 12/05/24 11:09:00 EDT, Height/Length Dosing, 84.6, kg, 12/05/24 11:09:00 EDT, Weight Dosing Start Date: 12/05/24 Status: Ordered Quantity: 60.0 Unit: EA Repeat number: 1 Start: 12-05-2024 take 2.5 mg by inhal ation every six hours as needed albuterol (PROVENTIL,VENTOLIN) [...] 09/13/2024 11/15/2024 Discontinued (Course of therapy completed) amoxicillin 875 mg / clavulanate 125 mg oral tablet (20 sources) Penicillin-class Antibacterial Start: 01-18-2025 take 1 tablet by mouth twice daily Start: 12-23-2024 End: 12-27-2024 take 1 tablet by mouth twice daily amoxicillin-clavulanate potassium (AUGMENTIN) 875-125 mg per tablet Take 1 tablet by mouth two times a day. Patient should start on December 23, 2024. 12/23/2024 12/27/2024 Active Start: 10-23-2024 End: 11-15-2024 take 1 tablet by mouth every twelve hours amoxicillin-clavulanate potassium (AUGMENTIN) 875-125 mg per tablet Take 1 tablet by mouth every 12 hours. 10/23/2024 11/15/2024 Discontinued (Course of therapy completed) Ascorbic Acid (9 sources) Vitamin C Start: 04-18-2019 Vitamin C Leonid y, Refills(s) 0 Start Date: 04/18/19 Status: Ordered Start: 08-11-2018 End: 01-02-2025 take 1 capsule by mouth once daily Ascorbic Acid (Vitamin C) (Vitamin C) 500 mg Capsule, Extended Release Discontinued 500 MG PO Daily August 11, 2018 1:00am January 02, 2025 5:11pm baclofen 10 mg oral tablet (19 sources) gamma-Aminobutyric Acid-ergic Agonist Start: 02-06-2025 End: 02-16-2025 take 1 tablet by mouth every eight hours as needed baclofen 10 mg tablet Take 1 tablet by mouth three times a day as needed for up to 10 days. 30 tablet 02/06/2025 02/16/2025 Active benzonatate 100 mg oral capsule (20 sources) Non-narcotic Antitussive Start: 01-23-2025 End: 02-22-2025 take 2 capsules by mouth three times daily as needed benzonatate (TESSALON PERLE) 100 mg capsule Indications: Chronic cough Take 2 capsules by mouth three times a day as needed. 180 capsule 3 01/23/2025 02/22/2025 Active Start: 01-02-2025 take 2 capsules by m outh three times daily as needed for cough Start: 10-23-2024 take 1 capsule by mo uth three times daily as needed for cough Benzonatate 200 mg capsule Indications: cough Take 200 mg by mouth three times a day as needed for cough. 10/23/2024 Active Start: 08-31-2024 End: 01-02-2025 take 1 capsule by mouth three times daily Benzonatate 100 mg capsule Discontinued 100 MG PO Three times daily 01 01August 31, 2024 12:00am January 02, 2025 5:12pm chlorproMAZINE hydrochloride 25 mg oral tablet (14 sources) Phenothiazine Start: 02-08-2025 End: 02-18-2025 take 1 tablet by mouth every eight hours as needed chlorproMAZINE (THORAZINE) 25 mg tablet Take 1 tablet by mouth three times a day as needed for up to 10 days. 30 tablet 02/08/2025 02/18/2025 Active colchicine 0.6 mg oral tablet (20 sources) Start: 01-30-2025 colchicine 0.6 mg tablet 01/30/2025 Active dextromethorphan hydrobromide 1 mg/ml / guaiFENesin 20 mg/ml oral solution (20 sources) Uncompetitive B-wsfmje-X-asparta te Receptor Antagonist, Sigma-1 Agonist Dextromethorphan-gu aiFENesin (MUCINEX FAST-MAX DM MAX) 5-100 mg/5 mL liqd Take by mouth as needed. Active take 2 tablets by [facility] every twelve hours in the morning dextromethorphan-guaiFENesin (MUCINEX DM ) 30-600 mg tablet extended release 12 hr Take 2 tablets by mouth in the morning and 2 tablets before bedtime. Active End: 01-02-2025 take 1 tablet by mouth once daily as needed dextromethorphan-guaiFENesin (MUCINEX DM ) 30-600 mg per tablet Take 1 tablet by mouth once daily as needed for cold/allergy symptoms or cough. 01/02/2025 Discontinued (Discontinued by Patient) take 2 tablets by [facility] twice daily dextromethorphan-guaiFENesin (MUCINEX DM ) 30-600 mg per tablet Take 2 tablets by mouth two times a day. Active docusate sodium 50 mg / sennosides, group home 8.6 mg oral tablet (20 sources) Start: 01-15-2025 take 1 tablet by [facility] twice daily as needed for constipation Start: 12-29-2024 take 1 tablet by [facility] twice daily Senexon-S oral tablet TAKE 1 TABLET BY MOUTH TWICE A DAY Start Date: 12/29/24 Status: Ordered Repeat number: 1 take 1 capsule by [facility] every twelve hours as needed sennosides-docusate sodium (SENNA PLUS) 8.6-50 mg capsule Take 1 capsule by mouth two times a day as needed for constipation. Active doxycycline monohydrate 100 mg oral capsule (16 sources) Tetracycline-class Drug Start: 12-29-2024 take 1 capsule by mouth twice daily doxycycline monohydrate 100 mg oral capsule TAKE 1 CAPSULE BY MOUTH TWICE A DAY Start Date: 12/29/24 Status: Ordered Repeat number: 1 Start: 12-23-2024 End: 12-29-2024 doxycycline hyclate (VIBRAMY MANGO) 100 mg capsule Take 100 mg by mouth two times a day. Patient should start on December 23, 2024. 12/23/2024 12/29/2024 Active Start: 11-23-2024 End: 12-07-2024 doxycycline (VIBRAMYCIN) 100 mg capsule Take 1 capsule (100 mg total) by mouth. 11/23/2024 12/07/2024 Discontinued (Therapy completed) esomeprazole 40 mg delayed release oral capsule (20 sources) Proton Pump Inhibitor Start: 12-29-2024 esomeprazole (NEXIUM) 40 mg capsule Take 40 mg by mouth. 12/29/2024 Active 12 hr guaiFENesin 600 mg extended release oral tablet (4 sources) Start: 01-18-2025 take 1 tablet by mouth twice daily Start: 01-06-2025 End: 01-15-2025 take 1 tablet by mouth twice daily Guaifenesin 600 mg Tablet Extended Release 12hr Discontinued 1200 MG PO Twice daily 40 10 January 06, 2025 12:00am January 15, 2025 9:38am ipratropium bromide 0.021 mg/actuat metered dose nasal spray (20 sources) Anticholinergic Start: 01-23-2025 End: 03-16-[address] (ATROVENT) 21 mcg (0.03 %) nasal spray Indications: Rhinorrhea USE 2 SPRAYS IN THE NOSE TWO TIMES A DAY. 90 mL 2 02/14/2025 03/16/2025 Active iv contrast (will be provided with [...] guidelines link 1 each 10/27/2024 10/28/2024 Active meclizine hydrochloride 25 mg oral tablet [...] a day as needed for dizziness. Active MEN'S MULTI-VITAMIN ORAL (20 sources) MEN'S MULTI-JOE MIN ORAL Take by mouth once daily. Suspended MEN'S MULTI-JOE MIN ORAL Take by mouth once daily. Active 24 hr metoprolol succinate 50 mg extended release oral tablet (20 sources) beta-Adrenergic Angella Start: 01-17-2025 take 1 tablet by mouth once daily Start: 09-08-2024 End: 01-18-2025 take 2 tablets by mouth once daily Metoprolol Succinate 50 mg tablet extended release 24 hr Discontinued 25 MG PO Daily September 08, 2024 11:35am January 18, 2025 12:22pm Start: 09-08-2024 take 1 tablet by bandar th once daily Metoprolol Succinate 50 mg tablet extended release 24 hr Active 50 MG PO Daily September 08, 2024 11:35am Start: 08-31-2024 End: 09-08-2024 take 1 tablet by mouth every twenty-four hours Metoprolol Succinate 50 mg tablet extended release 24 hr Discontinued MG PO August 31, 2024 12:00am September 08, 2024 11:36am Start: 06-29-2023 take 1 tablet by bandar th once daily metoprolol succinate ER (TOPROL XL) 25 mg 24 hr tablet Take 25 mg by mouth once daily. 06/29/2023 Active Start: 06-29-2023 take 1 tablet by bandar th every twenty-four hours metoprolol succinate ER (TOPROL XL) 25 mg 24 hr tablet Take 25 mg by mouth. 06/29/2023 Active Start: 06-29-2023 take 1 tablet by bandar th once daily metoprolol succinate ER (TOPROL XL) 25 mg 24 hr tablet Take 50 mg by mouth once daily. 06/29/2023 Active Start: 06-29-2023 take 1 tablet by bandar th twice daily metoprolol 25 mg ER Tab 25 mg = 1 tab(s), Oral, BID, Refills(s) 0 Start Date: 06/29/23 Status: Ordered midodrine hydrochloride 2.5 mg oral tablet (20 sources) alpha-Adrenergic Agonist Start: 01-18-2025 End: 03-15-2025 take 1 tablet by mouth three times daily midodrine (PROAMATINE) 2.5 mg tablet TAKE 1 TABLET BY MOUTH THREE TIMES A DAY 270 tablet 1 02/13/2025 03/15/2025 Active mirtazapine 7.5 mg oral tablet (20 sources) Start: 01-23-2025 End: 04-23-2025 take 1 tablet by mouth once daily at bedtime mirtazapine (REMERON) 7.5 mg tablet Indications: Anorexia Take 1 tablet by mouth daily at bedtime. 90 tablet 01/23/2025 04/23/2025 Active Multi Vitamin+ (2 sources) Start: 08-15-2019 Multi Vitamin+ Refill(s) 0 Start Date: 08/15/19 Status: Ordered Repeat number: 1 Start: 08-15-2019 Multi Vitamin+ Refill(s) 0 Start Date: 08/15/19 Status: Ordered multivit-min/folic/vit K/lyc op (MEN'S 50 PLUS MULTIVITAMIN ORAL) (12 sources) multivit-min/fol ic/vit K/lycop (MEN'S 50 PLUS MULTIVITAMIN ORAL) Take by mouth in the morning. Active Multivitamin Tablet (8 sources) Start: 05-17-20 19 take 1 tablet by mouth once daily Start: 05-17-2019 take 1 tablet by bandar th once daily Multivitamin Tablet Active 1 TAB PO Daily May 17, 2019 1:00am Complies with drug therapy Start: 05-17-2019 take 1 tablet by bandar th once daily Multivitamin Tablet Active 1 TAB PO Daily May 17, 2019 1:00am nystatin [id number] unt/ml oral suspension (20 sources) Polyene Antifungal Start: 01-18-2025 End: 02-05-2025 take 5 mL by mouth four times daily nystatin (MYCOSTATIN) 100,000 unit/mL suspension Take 5 mL by mouth four times daily for 14 days. Swish and swallow. 280 mL 01/18/2025 02/05/2025 Active oxyCODONE hydrochloride 5 mg oral tablet (20 sources) Opioid Agonist Start: 01-23-2025 End: 02-22-2025 take 1 tablet by mouth every four hours as needed for pain oxyCODONE IR (ROXICODONE) 5 mg immediate release tablet Indications: Malignant neoplasm of lower lobe of right lung (HCC) , Neoplasm related pain , SOB (shortness of breath) Take 1 tablet by mouth every 4 hours as needed for pain for up to 30 days. 180 tablet 01/23/2025 02/22/2025 Active Start: 01-18-2025 End: 02-01-2025 take 1 tablet by mouth every six hours as needed for pain oxyCODONE IR (ROXICODONE) 5 mg immediate release tablet Indications: Malignant neoplasm of lower lobe of right lung (HCC) Take 1 tablet by mouth every 6 hours as needed for pain for up to 14 days. 56 tablet 01/18/2025 01/23/2025 Discontinued PEPSIN/BLESSING/OXBILE/PANCREAT/B ET ([id number]-YPZ-FS [id number]-PAP ORAL) (2 sources) PEPSIN/BLESSING/OXBIL E/PANCREAT/BET ([id number] [id number]-[id number]-PAP ORAL) Take by mouth. Active predniSONE 20 mg oral tablet (20 sources) Start: predniSONE (DELTASONE) 20 mg tablet Take 1 [...] (Therapy completed) prochlorperazine 10 mg oral tablet (20 sources) Phenothiazine Start: 11-27-2024 take 1 tablet by mouth every six hours as needed prochlorperazine (COMPAZINE) 10 mg tablet Take 1 tablet by mouth every 6 hours as needed. 100 tablet 2 12/08/2024 9:26 AM EDT 11/27/2024 Active Reishi Mushroom Extract 188 mg capsule (2 sources) Start: 01-15-2025 take 1 capsule by mouth once daily Start: 01-15-2025 take 1 capsule by mo ut once daily Reishi Mushroom Extract 188 mg capsule Active 188 MG PO Daily January 15, 2025 12:00am Complies with drug therapy sertraline 50 mg oral tablet (20 sources) Serotonin Reuptake Inhibitor Start: 01-18-2025 take 1 tablet by mouth once daily in the morning varenicline 1 mg oral tablet (2 sources) Partial Cholinergic Nicotinic Agonist Start: 03-31-2017 take 1 tablet by mouth twice daily varenicline (CHANTIX CONTINUING MONTH BOX) 1 mg tablet Take 1 tablet (1 mg total) by mouth 2 (two) times a day. Take with full glass of water. 56 tablet 3 03/31/2017 Active Zinc (9 sources) Start: 04-18-2019 take 1 mg by [...] (Erroneous entry) allopurinol 300 mg oral tablet (20 sources) Xanthine Oxidase Inhibitor Start: 05-17-2019 End: 08-31-2024 take 1 tablet by mouth once daily Allopurinol 300 mg tablet Discontinued 300 MG PO Daily May 17, 2019 1:00am August 31, 2024 9:50am aspirin 81 mg delayed release oral tablet (8 sources) Platelet Aggregation Inhibitor, Nonsteroidal Anti-inflammatory Drug Start: 12-14-2017 End: 08-31-2024 Aspirin (Jez Low Dose Aspirin) 81 mg Tablet,Delayed Release (Dr/Ec) Discontinued 81 MG PO Every morning December 14, 2017 12:00am August 31, 2024 9:50am cefdinir 300 mg oral capsule (20 sources) Cephalosporin Antibacterial Start: 01-06-2025 End: 01-23-2025 cefdinir (OMNICEF) 300 mg capsule 01/06/2025 01/23/2025 Discontinued (Discontinued by Patient) cetirizine hydrochloride 10 mg oral tablet (4 sources) Histamine-1 Receptor Antagonist End: 11-22-2024 take 1 tablet by mouth in the morning cetirizine (ZyrTEC) 10 mg tablet Take 1 tablet (10 mg total) by mouth in the morning. 11/22/2024 Discontinued (Therapy completed) chondroitin sulfate a sodium 600 mg / glucosamine sulfate 750 mg oral tablet (8 sources) Start: 12-14-2017 End: 08-31-2024 take 1 tablet by mouth once daily in the morning Glucosamine-Chondro itn Sulf.Na (Glucosamine-Chondr oitin 3x) 750-600 mg Tablet Discontinued 1 TAB PO Every morning December 14, 2017 12:00am August 31, 2024 9:50am ciprofloxacin 500 mg oral tablet (8 sources) Quinolone Antimicrobial Start: 05-18-2019 End: 08-31-2024 take 1 tablet by mouth every twelve hours Ciprofloxacin Hcl 500 mg tablet Discontinued 500 MG PO Q12H May 18, 2019 1:00am August 31, 2024 9:41am CISplatin 94 mg in NaCl 0.9% 1,144 mL (PLATINOL) (1 source) Start: 02-05-2025 End: 02-05-2025 94 mg (50 mg/m2 1.88 m2 Treatment Plan BSA from Recorded weight), INTRAVENOUS, Administer over 1 Hours, ONCE, 1 dose, On Wed02/05/25 at 1200, EXP: 02/06 1600 Hazardous Chemotherapy Drug: Use appropriate PPE. Antineoplastic Vesicant for concentrations greater than 0.4 mg/mL - Antineoplastic Irritant for concentrations less than 0.4 mg/mL. Protect from Light. CISplatin 97 mg in NaCl 0.9% 1,147 mL (PLATINOL) (1 source) Start: 01-08-2025 End: 01-08-2025 97 mg (50 mg/m2 1.94 m2 Treatment Plan BSA from Recorded weight), INTRAVENOUS, Administer over 1 Hours, ONCE, 1 dose, On Wed01/08/25 at 1300, EXP: 01/09/2025 1735 RT Hazardous Chemotherapy Drug: Use appropriate PPE. Antineoplastic Vesicant for concentrations greater than 0.4 mg/mL - Antineoplastic Irritant for concentrations less than 0.4 mg/mL. Protect from Light. clindamycin 300 mg oral capsule (20 sources) Lincosamide Antibacterial Start: 01-06-2025 End: 01-23-2025 clindamycin (CLEOCIN) 300 mg capsule 01/06/2025 01/23/2025 Discontinued (Discontinued by Patient) Complete Men 50 Plus (8 sources) Start: 12-14-2017 End: 05-17-2019 take 1 [...] Discontinued (Discontinued by another Health Care Provider) 1 ml dexamethasone phosphate 10 mg/ml injection (3 sources) Corticosteroid Start: 02-05-2025 End: 02-05-2025 10 mg, INTRAVENOUS, ONCE, 1 dose, On Wed02/05/25 at 1030, Administer IV doses up to 10 mg over 5 minutes. Administer doses > 10 mg over 15 to 30 minutes. Start: 01-08-2025 End: 01-08-2025 10 mg, INTRAVENOUS, ONCE, 1 dose, On Wed01/08/25 at 1130, Administer IV doses up to 10 mg over 5 minutes. Administer doses > 10 mg over 15 to 30 minutes. Start: 01-02-2025 End: 01-02-2025 10 mg, INTRAVENOUS, ONCE, 1 dose, On Wed01/02/25 at 1200, Administer IV doses up to 10 mg over 5 minutes. Administer doses > 10 mg over 15 to 30 minutes. diphenhydrAMINE (20 sources) Histamine-1 Receptor Antagonist Start: 01-08-2025 End: 01-08-2025 50 mg, INTRAVENOUS, NEEDE D, 1 dose, Starting on Wed01/08/25 at 1120, Until Wed01/08/25 at 1414, Administer per hypersensitivity/anaphylaxis grading in nursing communication Start: 01-02-2025 End: 01-02-2025 25 mg, INTRAVENOUS, ONCE, 1 dose, On Wed01/02/25 at 1200 Start: 12-05-2024 End: 01-23-2025 diphenhydrAMINE (BENADRYL) 2 5 mg capsule Take 25 mg by mouth. 12/05/2024 01/23/2025 Discontinued End: 11-27-2024 diphenhydramine HCl (ALLERGY MEDICATION ORAL) Take by mouth once daily. 11/27/2024 Discontinued (Discontinued by Patient) diphenhydramine HCl (ALLERGY MEDICATION ORAL) Take by mouth once daily. Suspended diphenhydramine HCl (ALLERGY MEDICATION ORAL) Take by mouth once daily. Active etoposide 97 mg in NaCl 0.9% 544.85 mL (1 source) Start: 01-08-2025 End: 01-08-2025 97 mg (50 mg/m2 1.94 m2 Lou tment Plan BSA from Recorded weight), INTRAVENOUS, Administer over 1 Hours, ONCE, 1 dose, On Wed01/08/25 at 1400, EXP: 01/09/2025 1735 RT Hazardous Chemotherapy Drug: Use appropriate PPE. Protect from Light. Administer with non-DEHP 0.2 micron filter and tubing. etoposide phosphate 94 mg in NaCl 0.9% 114.7 mL (5 sources) Start: 02-09-2025 End: 02-09-2025 94 mg (50 mg/m2 1.88 m2 Lou tment Plan BSA from Recorded weight), INTRAVENOUS, Administer over 1 Hours, ONCE, 1 dose, On Wed02/09/25 at 1100, EXP: 0500 02/10/25 Hazardous Chemotherapy Drug: Use appropriate PPE. Antineoplastic Irritant. Start: 02-08-2025 End: 02-08-2025 94 mg (50 mg/m2 1.88 m2 Olu tment Plan BSA from Recorded weight), INTRAVENOUS, Administer over 1 Hours, ONCE, 1 dose, On Wed02/08/25 at 1300, EXP: 0400 02/10/25 Hazardous Chemotherapy Drug: Use appropriate PPE. Antineoplastic Irritant. Start: 02-07-2025 End: 02-07-2025 94 mg (50 mg/m2 1.88 m2 Lou tment Plan BSA from Recorded weight), INTRAVENOUS, Administer over 1 Hours, ONCE, 1 dose, On Wed02/07/25 at 1300, EXP: 13475 02/09/25 Hazardous Chemotherapy Drug: Use appropriate PPE. Antineoplastic Irritant. Start: 02-06-2025 End: 02-06-2025 94 mg (50 mg/m2 1.88 m2 Lou tment Plan BSA from Recorded weight), INTRAVENOUS, Administer over 1 Hours, ONCE, 1 dose, On Tu02/06/25 at 1330, EXP:1530 02/06/25 Hazardous Chemotherapy Drug: Use appropriate PPE. Antineoplastic Irritant. Start: 02-05-2025 End: 02-05-2025 94 mg (50 mg/m2 1.88 m2 Lou tment Plan BSA from Recorded weight), INTRAVENOUS, Administer over 1 Hours, ONCE, 1 dose, On Wed02/05/25 at 1030, EXP 02/06 1100 Hazardous Chemotherapy Drug: Use appropriate PPE. Antineoplastic Irritant. etoposide phosphate 97 mg in NaCl 0.9% 114.85 mL (4 sources) Start: 01-12-2025 End: 01-12-2025 97 mg (50 mg/m2 1.94 m2 Lou tment Plan BSA from Recorded weight), INTRAVENOUS, Administer over 1 Hours, ONCE, 1 dose, On Wed01/12/25 at 1230, EXP: 01/13/2025 1220 RT Hazardous Chemotherapy Drug: Use appropriate PPE. Antineoplastic Irritant. Start: 01-11-2025 End: 01-11-2025 97 mg (50 mg/m2 1.94 m2 Lou tment Plan BSA from Recorded weight), INTRAVENOUS, Administer over 1 Hours, ONCE, 1 dose, On Rhona 01/11/25 at 1330, EXP:1300 01/12/25 Room Temp Hazardous Chemotherapy Drug: Use appropriate PPE. Antineoplastic Irritant. Start: 01-10-2025 End: 01-10-2025 97 mg (50 mg/m2 1.94 m2 Lou tment Plan BSA from Recorded weight), INTRAVENOUS, Administer over 1 Hours, ONCE, 1 dose, On Wed01/10/25 at 1330, EXP: 01/11/2025 1320 RT Hazardous Chemotherapy Drug: Use appropriate PPE. Antineoplastic Irritant. Start: 01-09-2025 End: 01-09-2025 97 mg (50 mg/m2 1.94 m2 Lou tment Plan BSA from Recorded weight), INTRAVENOUS, Administer over 1 Hours, ONCE, 1 dose, On Wed01/09/25 at 1200, EXP: 01/10/2025 1205 RT Hazardous Chemotherapy Drug: Use appropriate PPE. Antineoplastic Irritant. 2 ml famotidine 10 mg/ml injection (2 sources) Histamine-2 Receptor Antagonist Start: 01-08-2025 End: 01-08-2025 20 mg, INTRAVENOUS, ONCE, 1 dose, On Wed01/08/25 at 1430, REFRIGERATE Start: 01-02-2025 End: 01-02-2025 20 mg, INTRAVENOUS, ONCE, 1 dose, On Wed01/02/25 at 1200, REFRIGERATE fluticasone propionate 0.05 mg/actuat metered dose nasal spray (20 sources) Corticosteroid Start: 12-14-2017 End: 01-15-2025 Fluticasone Propionate (Flonase Allergy Relief) 50 mcg/actuation Leroy,Suspension Discontinued 1 SPRAYS INTRANASAL Daily as needed for Allergy Symptoms December 14, 2017 12:00am January 15, 2025 9:38am End: 01-02-2025 fluticasone propionate (FLON ASE NASAL) Use in the nose once daily. 01/02/2025 Discontinued (Discontinued by Patient) fluticasone prop ionate (FLONASE NASAL) Use in the nose once daily. Suspended fluticasone prop ionate (FLONASE NASAL) Use in the nose once daily. Active HERBAL DRUGS MISC (20 sources) End: 01-23-2025 HERBAL DRUGS MISC 1 capsule once daily. [place]/Soursop 01/23/2025 Discontinued HERBAL DRUGS MIS C 1 capsule once daily. [place]/Soursop Active hydrocortisone 100 mg injection (1 source) Corticosteroid Start: 01-08-2025 End: 01-08-2025 100 mg, INTRAVENOUS, NEEDED, 1 dose, Starting on Wed01/08/25 at 1120, Until Wed01/08/25 at 1412, Administer per hypersensitivity/anaphylaxis grading in nursing communication ibuprofen 800 mg oral tablet (15 sources) Nonsteroidal Anti-inflammatory Drug Start: 08-11-2018 End: [...] Provider) lidocaine hydrochloride 40 mg/ml topical cream (8 sources) Antiarrhythmic, Amide Local Anesthetic Start: 08-11-2018 End: 08-31-2024 Lidocaine Hcl (Aspercreme (Lidocaine Hcl)) 4 % Cream Discontinued 1 APPLIC TOPICAL Daily as needed for Joint pain August 11, 2018 1:00am August 31, 2024 9:50am loratadine 10 mg oral tablet (20 sources) Start: 12-14-2017 End: 01-02-2025 take 1 tablet by mouth once daily in the morning Loratadine 10 mg Tablet Discontinued 10 MG PO Every morning December 14, 2017 12:00am January 02, 2025 5:11pm End: 01-02-2025 loratadine (CLARITIN REDITAB S) 10 mg disintegrating tablet Dissolve 1 tablet (10 mg total) on tongue in the morning. Active 100 ml magnesium sulfate 10 mg/ml injection (4 sources) Start: 02-05-2025 End: 02-05-2025 1 g, INTRAVENOUS, at 50-100 mL/hr, Administer [...] Pointes, Pediatric BMT and Hematology/Oncology, Eclampsia or Preeclampsia Start: 01-08-2025 End: 01-08-2025 1 g, INTRAVENOUS, at 50-100 mL/hr, Administer over 1-2 Hours, ONCE, 1 dose, On Wed01/08/25 at 1130, Magnesium sulfate iv bolus will be infused [...] Pointes, Pediatric BMT and Hematology/Oncology, Eclampsia or Preeclampsia megestrol acetate 40 mg/ml oral suspension (20 sources) Progestin Start: 01-02-2025 End: 02-01-2025 take 10 mL by mouth twice daily megestrol (MEGACE) 400 mg/10 mL (40 mg/mL) suspension Take 10 mL by mouth two times a day. 600 mL 01/02/2025 01/23/2025 Discontinued meloxicam 7.5 mg oral tablet (20 sources) Nonsteroidal Anti-inflammatory Drug Start: 06-29-2023 End: 01-02-2025 take 1 tablet by mouth once daily Meloxicam 7.5 mg tablet Discontinued 7.5 MG PO Daily August 31, 2024 12:00am January 02, 2025 5:11pm NaCl 0.9% 1,000 mL (1 source) Start: 01-02-2025 End: 01-02-2025 INTRAVENOUS, at 999 mL/hr, Administer over 1 Hours, ONCE, 1 dose, On Wed01/02/25 at 1200 NON FORMULARY (4 sources) End: 12-07-2024 NON FORMULARY Med Name: MARINGA Immunity support bid 12/07/2024 Discontinued (Therapy completed) NON FORMULARY Me d Name: MARINGA Immunity support bid Active 2 ml ondansetron 2 mg/ml injection (20 sources) Serotonin-3 Receptor Antagonist Start: 02-08-2025 End: 02-09-2025 8 mg, INTRAVENOUS, ONCE, 1 dose, On Wed02/09/25 at 1100 Start: 01-15-2025 take 1 tablet by bandar th three times daily as needed for nausea and vomiting Start: 01-11-2025 End: 01-12-2025 8 mg, INTRAVENOUS, ONCE, 1 d ose, On Wed01/12/25 at 1230 Start: 11-27-2024 take 1 tablet by bandar th every eight hours as needed ondansetron (ZOFRAN) 8 mg tablet Take 1 tablet by mouth every 8 hours as needed for nausea/vomiting. 90 tablet 2 12/08/2024 9:26 AM EDT 11/27/2024 Active oseltamivir 75 mg oral capsule (6 sources) Neuraminidase Inhibitor Start: 09-08-2024 End: 01-02-2025 take 1 capsule by mouth twice daily Oseltamivir (Tamiflu) 75 mg capsule Discontinued 75 MG PO Twice daily 10 5 September 08, 2024 12:00am January 02, 2025 5:34pm OTC PRODUCT (20 sources) End: 01-23-2025 OTC PRODUCT THC 10mg am and 5mg with lunch and supper - appetite, pain, energy 01/23/2025 Discontinued OTC PRODUCT THC 10mg am and 5mg with lunch and supper - appetite, pain, energy Active OTC PRODUCT THC 5mg TID - appetite, pain, energy Active PACLitaxel 100 mg in NaCl 0.9% 291.6667 mL (TAXOL) (1 source) Start: 01-02-2025 End: 01-02-2025 100 mg (rounded from 101 mg = 50 mg/m2 2.02 m2 Treatment Plan BSA from Recorded weight), INTRAVENOUS, at 291.67 mL/hr, Administer over 1 Hours, ONCE, 1 dose, On Wed01/02/25 at 1230, EXP: 01/06/2025 1200 RT Hazardous Chemotherapy Drug: Use appropriate PPE. Antineoplastic Irritant with Vesicant Potential. Administer with non-DEHP 0.2 micron filter and tubing. 5 ml palonosetron 0.05 mg/ml injection (3 sources) Serotonin-3 Receptor Antagonist Start: 02-05-2025 End: 02-05-2025 0.25 mg, INTRAVENOUS, ONCE, 1 dose, On Wed02/05/25 at 1030, Flush IV line with NS prior to and following administration. Start: 01-08-2025 End: 01-08-2025 0.25 mg, INTRAVENOUS, ONCE, 1 dose, On Wed01/08/25 at 1130, Flush IV line with NS prior to and following administration. Start: 01-02-2025 End: 01-02-2025 0.25 mg, INTRAVENOUS, ONCE, 1 dose, On Wed01/02/25 at 1200, Flush IV line with NS prior to and following administration. 100 ml potassium chloride 0. 2 meq/ml injection (7 sources) Start: 02-05-2025 End: 02-05-2025 20 mEq, INTRAVENOUS, at 100 mL/hr, Administer over 1 Hours, ONCE, 1 dose, On Wed02/05/25 at 1030, NONCYTOTOXIC VESICANT If ordered with infusion rate range, start with maximum infusion rate and decrease rate if infusion is not tolerated Start: 01-08-2025 End: 01-09-2025 20 mEq, INTRAVENOUS, at 100 mL/hr, Administer over 1 Hours, ONCE, 1 dose, On Wed01/09/25 at 1200, NONCYTOTOXIC VESICANT If ordered with infusion rate range, start with maximum infusion rate and decrease rate if infusion is not tolerated Start: 12-29-2024 Potassium Chlo ride (Eps-Hzif-Mxu M20) 20 mEq oral tablet, extended release Refills(s) 0 Start Date: 12/29/24 Status: Ordered Repeat number: 1 Start: 12-26-2024 End: 01-02-2025 take 1 tablet by mouth once daily potassium chloride ER (KLOR-CON) 20 mEq tablet Take 1 tablet by mouth once daily for 7 days. 7 tablet 12/26/2024 01/02/2025 Discontinued (Course of therapy completed) reishi mushroom extract 188 mg cap (20 sources) End: 01-23-2025 reishi mushroom extract 188 mg cap Take by mouth. 01/23/2025 Discontinued reishi mushroom extract 188 mg cap Take by mouth. Active saccharomyces boulardii 250 mg oral capsule (3 sources) Start: 01-06-2025 End: 01-15-2025 take 1 capsule by mouth twice daily Saccharomyces Boulardii (Florastor) 250 mg capsule Discontinued 250 MG PO Twice daily 60 January 06, 2025 12:00am January 15, 2025 9:38am 1000 ml sodium chloride 9 mg/ml injection (13 sources) Start: 02-13-2025 End: 02-13-2025 1,000 mL, INTRAVENOUS, at 999 mL/hr, Administer over 1 Hours, ONCE, 1 dose, On Wed02/13/25 at 1330 Start: 02-05-2025 End: 02-05-2025 1,000 mL, INTRAVENOUS, at 99 9 mL/hr, Administer over 1 Hours, ONCE, 1 dose, On Wed02/05/25 at 1400 Start: 02-02-2025 End: 02-02-2025 1,000 mL, INTRAVENOUS, at 99 9 mL/hr, Administer over 1 Hours, ONCE, 1 dose, On Wed02/02/25 at 1230 Start: 02-02-2025 End: 02-08-2025 10-20 mL, INTRAVENOUS, NE EDED, Starting on Wed02/02/25 at 1218, Until Wed02/08/25 at 1219, See Administration Instructions, If no IVAD access, may place IV if needed for labs or possible treatment. Flush 10-20ml on IV start and as needed. D5W or LR may be used in place of NS for medication that are incompatible (i.e. with oxaliplatin). Start: 01-26-2025 End: 01-26-2025 1,000 mL, INTRAVENOUS, at 99 9 mL/hr, Administer over 1 Hours, ONCE, 1 dose, On Wed01/26/25 at 1200 Start: 01-26-2025 End: 01-26-2025 NaCl 0.9% 1,000 mL iv bolus Start: 01-24-2025 End: 01-24-2025 1,000 mL, INTRAVENOUS, at 99 9 mL/hr, Administer over 1 Hours, ONCE, 1 dose, On Wed01/24/25 at 1430 Start: 01-08-2025 End: 01-08-2025 1,000 mL, INTRAVENOUS, at 99 9 mL/hr, Administer over 1 Hours, ONCE, 1 dose, On Wed01/08/25 at 1500 tamsulosin hydrochloride 0.4 mg oral capsule (15 sources) alpha-Adrenergic Angella Start: 06-23-2017 End: 09-08-2024 take 1 capsule by mouth twice daily Tamsulosin 0.4 mg capsule,extended release 24hr Discontinued 0.4 MG PO Twice daily December 14, 2017 12:00am September 08, 2024 11:36am Start: 06-23-2017 End: 11-15-2024 tamsulosin (FLOMAX) 0.4 mg T lawrence 0.4 mg by mouth. 06/23/2017 11/15/2024 Discontinued Turmeric extract (8 sources) Start: 08-31-2024 End: 01-02-2025 Turmeric 400 mg capsule Disc ontinued MG PO August 31, 2024 12:00am January 02, 2025 5:34pm Start: 08-31-2024 Turmeric 400 m g capsule Active MG PO August 31, 2024 12:00am Problems Active Problems Problem Classification Problem Date Documented Da te Episodic/Chronic Abdominal pain (3 sources) Abdominal pain; Translations: [Unspecified abdominal pain] Onset: 4 Episodic Administrative/social admission (1 source) Impaired mobility 12-27-2024 Episodic Anxiety disorders (3 sources) Anxiety; Translations: [Anxiety disorder, unspecified] Onset: 5 01-17-2025 Chronic Calculus of urinary tract (10 sources) Calculus of kidney; Translations: [Personal history of urinary calculi] Onset: 3 Episodic Cancer of bronchus; lung (20 sources) Malignant neoplasm of lower lobe of right lung; Translations: [Malignant neoplasm of lower lobe, right bronchus or lung] Onset: 5 10-27-2024 Chronic Cancer of bronchus; lung (8 sources) History of malignant neoplasm of thoracic cavity structure; Translations: [Personal history of other malignant neoplasm of bronchus and lung] 01-02-2025 Episodic Cardiac dysrhythmias (1 source) Bradycardia, unspecified; Translations: [Bradycardia, unspecified] Onset: 5 Episodic Complications of surgical procedures or medical care (1 source) Anemia due to antineoplastic chemotherapy; 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] 02-14-2025 Chronic Conduction disorders (20 sources) Atrioventricular block; Translations: [Unspecified atrioventricular block] Onset: 5 11-09-2024 Chronic Fever of unknown origin (6 sources) Fever; Translations: [Fever, unspecified] Onset: 5 12-05-2024 Episodic Fluid and electrolyte disorders (20 sources) Dehydration; Translations: [Dehydration] Onset: 5 01-24-2025 Episodic Genitourinary symptoms and ill-defined conditions (5 sources) Microscopic hematuria; Translations: [Other microscopic hematuria] Onset: 4 Episodic Gout and other crystal arthropathies (13 sources) Gout; Translations: [Gout, unspecified] Onset: 5 01-18-2019 Chronic Hyperplasia of prostate (18 sources) Benign prostatic hyperplasia with lower urinary tract symptoms; Translations: [Benign prostatic hypertrophy with outflow obstruction] Onset: 3 Chronic Maintenance chemotherapy; radiotherapy (1 source) Patient encounter status; Translations: [Encounter for antineoplastic chemotherapy] 02-14-2025 Chronic Malaise and fatigue (3 sources) Asthenia; Translations: [Fatigue due to chemotherapy] 12-27-2024 Episodic Nutritional deficiencies (1 source) Deficiency of macronutrients; Translations: [Unspecified protein-calorie malnutrition] 02-14-2025 Chronic Osteoarthritis (13 sources) Arthritis; Translations: [Unspecified osteoarthritis, unspecified site] Onset: 5 01-18-2019 Chronic Other aftercare (1 source) Post-discharge follow-up 11-08-2024 Episodic Other aftercare (1 source) Under care of palliative care physician; Translations: [Encounter for palliative care] 01-23-2025 Episodic Other connective tissue disease (4 sources) Muscle finding; Translations: [Myalgia, unspecified site] 12-26-2024 Episodic Other connective tissue disease (1 source) Myalgia, unspecified site; Translations: [Muscle soreness] Onset: 5 Episodic Other diseases of kidney and ureters (1 source) Acquired renal cyst without neoplastic change; Translations: [Cyst of kidney, acquired] Onset: 4 Episodic Other diseases of kidney and ureters (2 sources) Cyst of kidney 06-23-2022 Episodic Other gastrointestinal disorders (1 source) Therapeutic opioid induced constipation; Translations: [Drug induced constipation] 01-23-2025 Episodic Other injuries and conditions due to external causes (2 sources) Injury of head 01-18-2019 Episodic Other lower respiratory disease (1 source) Wheezing 12-05-2024 Episodic Other lower respiratory disease (2 sources) Abscess of lung; Translations: [Abscess of lung without pneumonia] 01-18-2025 Episodic Other lower respiratory disease (1 source) Abscess of lung without pneumonia; Translations: [Abscess of lung without pneumonia] Onset: Episodic Other lower respiratory disease (2 sources) Chronic cough; Translations: [Chronic cough] Onset: 5 01-23-2025 Episodic Other lower respiratory disease (1 source) Dyspnea; Translations: [Shortness of breath] 01-23-2025 Episodic Other lower respiratory disease (1 source) Shortness of breath; Translations: [SOB (shortness of breath)] Onset: Episodic Other nervous system disorders (20 sources) Lesion of ulnar nerve; Translations: [Lesion of ulnar nerve, unspecified upper limb] Onset: 6 10-10-2024 Chronic Other nervous system disorders (20 sources) Carpal tunnel syndrome; Translations: [Carpal tunnel syndrome, unspecified upper limb] Onset: 6 10-10-2024 Chronic Other nervous system disorders (3 sources) Pain due to neoplastic disease; Translations: [Neoplasm related pain (acute) (chronic)] 01-17-2025 Chronic Other nervous system disorders (2 sources) Neoplasm related pain (acute) (chronic); Translations: [Neoplasm related pain (acute) (chronic)] Onset: Chronic Other nutritional; endocrine; and metabolic disorders (1 source) Body mass index 25-29 - overweight 12-29-2024 Episodic Other nutritional; endocrine; and metabolic disorders (1 source) Overweight in adulthood with body mass index of 25 or more but less than 30 12-29-2024 Episodic Other nutritional; endocrine; and metabolic disorders (1 source) Loss of appetite; Translations: [Anorexia] 01-23-2025 Episodic Other nutritional; endocrine; and metabolic disorders (1 source) Anorexia; Translations: [Anorexia] Onset: Episodic Other screening for suspected conditions (not mental disorders or infectious disease) (1 source) Encounter for screening for malignant neoplasm of prostate; Translations: [Screening for malignant neoplasm done] Onset: Episodic Other upper respiratory disease (1 source) Obstruction of bronchus; Translations: [Other diseases of bronchus, not elsewhere classified] 11-15-2024 Episodic Other upper respiratory disease (2 sources) Nasal discharge; Translations: [Other specified disorders of nose and nasal sinuses] 01-23-2025 Episodic Other upper respiratory disease (1 source) Other specified disorders of nose and nasal sinuses; Translations: [Rhinorrhea] Onset: Episodic Other upper respiratory disease (2 sources) Other diseases of bronchus, not elsewhere classified; Translations: [Bronchiolar disease] Onset: Episodic Pneumonia (except that caused by tuberculosis or sexually transmitted disease) (15 sources) Pneumonia due to methicillin resistant Staphylococcus aureus; Translations: [Pneumonia due to Methicillin resistant Staphylococcus aureus] Onset: 5 11-23-2024 Episodic Residual codes; unclassified (2 sources) H/O: anticoagulant therapy 04-18-2019 Episodic Residual codes; unclassified (1 source) Pain, unspecified; Translations: [Pain, unspecified] Onset: Episodic Screening and history of mental health and substance abuse codes (2 sources) Ex-smoker 04-18-2019 Episodic Syncope (20 sources) Syncope; Translations: [Syncope and collapse] Onset: 5 11-08-2024 Episodic Thyroid disorders (1 source) Hypothyroidism 10-13-2024 Chronic Unclassified (2 sources) Patient encounter status 06-29-2023 Unclassified (1 source) Slow Heart Rate Onset: Unclassified (1 source) low heart rate Onset: Unclassified (1 source) New Patient Onset: Unclassified (3 sources) Post hospital appointment. Please call to reschedule if needed. This appointment is scheduled with another provider in her office, Catracho Youssef., Nurse Practitioner. 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 Unclassified (1 source) Device Check Onset: 5 Unclassified (1 source) AV block Onset: 5 Unclassified (1 source) Lung Cancer Onset: Past or Other Problems Problem Classification Problem Date Documented Da te Episodic/Chronic Mood disorders (13 sources) Mood disorders Onset: 12-17-2016 Resolved: 11-09-2024 [...] Test Name Value Interpretation Reference Range Facility CNNURSEon 02-16-2025 CNNURSE Normal [facility] CNNURSEon 02-15-2025 [facility] CNPNon 02-15-2025 CNPN Normal [facility] CBC W Auto Differential pane l (Bld)on 02-14-2025 Anisocytosis Ql (Bld) Present Normal [facility] Comment on above: Order Comment: Speci men Type: BLOOD SPECIMENOrdering Facility: [facility] Address: [address] [place] [address] Performed By: #### 5 7021-8 ####[facility] LABCLIA [id number] [address] LABCLIA [id number] [place] [address] [place] Basophils (Bld) [#/Vol] 0.00 10*3/uL Normal <0.11 [facility] Comment on above: Order Comment: Speci men Type: BLOOD SPECIMENOrdering Facility: [facility] Address: [address] [place] [address] Performed By: #### 5 7021-8 ####[facility] LABCLIA [id number] [address] LABCLIA [id number] [place] [id number] [place] Basophils/100 WBC (Bld) 0.0 % Normal [facility] Comment on above: Order Comment: Speci men Type: BLOOD SPECIMENOrdering Facility: [facility] Address: [address] [place] [address] Performed By: #### 5 7021-8 ####[facility] LABCLIA [id number] [address] LABCLIA [id number] [place] [address] [place] Differential cell count method Nom (Bld) Manual Normal [facility] Comment on above: Order Comment: Speci men Type: BLOOD SPECIMENOrdering Facility: [facility] Address: [address] [place] [address] Performed By: #### 5 7021-8 ####CHIGNIK LAGOONTRUDY [facility] LABCLIA [id number] [address] LABCLIA [id number] [place] [address] [place] Eosinophils (Bld) [#/Vol] 0.05 10*3/uL Normal <0.46 [facility] Comment on above: Order Comment: Speci men Type: BLOOD SPECIMENOrdering Facility: [facility] Address: [address] [place] [address] Performed By: #### 5 7021-8 ####[facility] LABCLIA [id number] [address] LABCLIA [id number] [place] [address] [place] Eosinophils/100 WBC (Bld) 0.9 % Normal [facility] Comment on above: Order Comment: Speci men Type: BLOOD SPECIMENOrdering Facility: [facility] Address: [address] [place] [address] Performed By: #### 5 7021-8 ####[facility] LABCLIA [id number] [place] [id number] LABCLIA [id number] [place] [address] [place] Erythrocyte distribution width (RBC) [Ratio] 16.4 % High 11.5-15.0 [facility] Comment on above: Order Comment: Speci men Type: BLOOD SPECIMENOrdering Facility: [facility] Address: [address] [place] [address] Performed By: #### 5 7021-8 ####[facility] LABCLIA [id number] [address] LABCLIA [id number] [place] [address] [place] Hematocrit (Bld) [Volume fraction] 22.5 % Low 39.0-51.0 [facility] Comment on above: Order Comment: Speci men Type: BLOOD SPECIMENOrdering Facility: [facility] Address: [address] [place] [address] Performed By: #### 5 7021-8 ####[facility] LABCLIA [id number] [address] LABCLIA [id number] [place] [address] [place] Hemoglobin (Bld) [Mass/Vol] 7.0 g/dL Low 13.0-17.0 [facility] Comment on above: Order Comment: Speci men Type: BLOOD SPECIMENOrdering Facility: [facility] Address: [address] [place] [address] Performed By: #### 5 7021-8 ####[facility] LABCLIA [id number] [address] LABCLIA [id number] [place] [address] [place] Lymphocytes (Bld) [#/Vol] 0.13 10*3/uL Low 1.00-4.00 [facility] Comment on above: Order Comment: Speci men Type: BLOOD SPECIMENOrdering Facility: [facility] Address: [address] [place] [address] Performed By: #### 5 7021-8 ####[facility] LABCLIA [id number] [address] LABCLIA [id number] [place] [address] [place] Lymphocytes/100 WBC (Bld) 2.6 % Normal [facility] Comment on above: Order Comment: Speci men Type: BLOOD SPECIMENOrdering Facility: [facility] Address: [address] [place] [address] Performed By: #### 5 7021-8 ####[facility] LABCLIA [id number] [address] LABCLIA [id number] [place] [address] [place] MCH (RBC) [Entitic mass] 25.3 pg Low 26.0-34.0 [facility] Comment on above: Order Comment: Speci men Type: BLOOD SPECIMENOrdering Facility: [facility] Address: [address] [place] [address] Performed By: #### 5 7021-8 ####[facility] LABCLIA [id number] [address] LABCLIA [id number] [place] [address] [place] MCHC (RBC) [Mass/Vol] 31.1 g/dL Normal 30.5-36.0 [facility] Comment on above: Order Comment: Speci men Type: BLOOD SPECIMENOrdering Facility: [facility] Address: [address] [place] [address] Performed By: #### 5 7021-8 ####[facility] LABCLIA [id number] [place] [id number] LABCLIA [id number] [place] [address] [place] MCV (RBC) [Entitic vol] 81.2 fL Normal 80.0-100.0 [facility] Comment on above: Order Comment: Speci men Type: BLOOD SPECIMENOrdering Facility: [facility] Address: [address] [place] [address] Performed By: #### 5 7021-8 ####[facility] LABCLIA [id number] [address] LABCLIA [id number] [place] [address] [place] Monocytes (Bld) [#/Vol] 0.00 10*3/uL Normal <0.87 [facility] Comment on above: Order Comment: Speci men Type: BLOOD SPECIMENOrdering Facility: [facility] Address: [address] [place] [address] Performed By: #### 5 7021-8 ####[facility] LABCLIA [id number] [address] LABCLIA [id number] [place] [address] [place] Monocytes/100 WBC (Bld) 0.0 % Normal [facility] Comment on above: Order Comment: Speci men Type: BLOOD SPECIMENOrdering Facility: [facility] Address: [address] [place] [address] Performed By: #### 5 7021-8 ####[facility] LABCLIA [id number] [address] LABCLIA [id number] [place] [address] [place] Neutrophils (Bld) [#/Vol] 4.87 10*3/uL Normal 1.45-7.50 [facility] Comment on above: Order Comment: Speci men Type: BLOOD SPECIMENOrdering Facility: [facility] Address: [address] [place] [address] Performed By: #### 5 7021-8 ####KAYLA [facility] LABCLIA [id number] [address] LABCLIA [id number] [place] [address] [place] Neutrophils/100 WBC (Bld) 96.5 % Normal [facility] Comment on above: Order Comment: Speci men Type: BLOOD SPECIMENOrdering Facility: [facility] Address: [address] [place] [address] Performed By: #### 5 7021-8 ####[facility] LABCLIA [id number] [address] LABCLIA [id number] [place] [address] [place] Nucleated RBC (Bld) [#/Vol] 10*3/uL Normal <0.01 [facility] Comment on above: Order Comment: Speci men Type: BLOOD SPECIMENOrdering Facility: [facility] Address: [address] [place] [address] Performed By: #### 5 7021-8 ####CHIGNIK LAGOONTRUDY [facility] LABCLIA [id number] [address] LABCLIA [id number] [place] [address] [place] Nucleated RBC/100 WBC (Bld) [Ratio] 0.0 /100 WBC Normal [facility] Comment on above: Order Comment: Speci men Type: BLOOD SPECIMENOrdering Facility: [facility] Address: [address] [place] [address] Performed By: #### 5 7021-8 ####[facility] LABCLIA [id number] [place], [place] [address] LABCLIA [id number] [address] [place] [address] [place] Ovalocytes LM Ql (Bld) Few Normal [facility] Comment on above: Order Comment: Speci men Type: BLOOD SPECIMENOrdering Facility: [facility] Address: [address] [place] [address] Performed By: #### 5 7021-8 ####[facility] LABCLIA [id number] [place] [id number] LABCLIA [id number] [place] [address] [place] Platelet mean volume (Bld) [Entitic vol] 10.3 fL Normal 9.0-12.7 [facility] Comment on above: Order Comment: Speci men Type: BLOOD SPECIMENOrdering Facility: [facility] Address: [address] [place] [address] Performed By: #### 5 7021-8 ####[facility] LABCLIA [id number] [place] [id number] LABCLIA [id number] [place] [address] [place] Platelets (Bld) [#/Vol] 76 10*3/uL Low 150-400 [facility] Comment on above: Order Comment: Speci men Type: BLOOD SPECIMENOrdering Facility: [facility] Address: [address] [place] [address] Result Comment: No c lot detected. Performed By: #### 5 7021-8 ####[facility] LABCLIA [id number] [place] [id number] LABCLIA [id number] [address] [place] [address] [place] Platelets Estimate (Bld) [#/Vol] Decreased Normal [facility] Comment on above: Order Comment: Speci men Type: BLOOD SPECIMENOrdering Facility: [facility] Address: [address] [place] [address] Performed By: #### 5 7021-8 ####KAYLA [facility] LABCLIA [id number] [place] [id number] LABCLIA [id number] [address] [address] [place] Polychromasia LM Ql (Bld) Slight Normal [facility] Comment on above: Order Comment: Speci men Type: BLOOD SPECIMENOrdering Facility: [facility] Address: [address] [place] [address] Performed By: #### 5 7021-8 ####[facility]IANNADCTRO[facility] LABCLIA [id number] [address] LABCLIA [id number] [place] [address] [place] RBC (Bld) [#/Vol] 2.77 10*6/uL Low 4.20-6.00 [facility] Comment on above: Order Comment: Speci men Type: BLOOD SPECIMENOrdering Facility: [facility] Address: [address] [place] [address] Performed By: #### 5 7021-8 ####[facility] LABCLIA [id number] [place] [id number] LABCLIA [id number] [address] [place] [facility] [place] RED CELL MORPH Reviewed: see result s of individual morphologies Normal [facility] Comment on above: Order Comment: Speci men Type: BLOOD SPECIMENOrdering Facility: [facility] Address: [address] [place] [address] Performed By: #### 5 7021-8 ####[facility] LABCLIA [id number] [address] LABCLIA [id number] [address] [address] [place] WBC (Bld) [#/Vol] 5.05 10*3/uL Normal 3.70-11.00 [facility] Comment on above: Order Comment: Speci men Type: BLOOD SPECIMENOrdering Facility: [facility] Address: [address] [place] [id number] Performed By: #### 5 7021-8 ####[facility] LABCLIA [id number] [place], [place] [address]FNBDZLECWC[facility] LABCLIA [id number] [place] [id number] [place] CNNURSEon 02-14-2025 CNNURSE Normal [facility] CNOVSPon 02-14-2025 CNOVSP Normal [facility] CNPNon 02-14-2025 CNPN Normal [facility] Comprehensive metabolic 2000 panelon 02-14-2025 Albumin [Mass/Vol] 3.5 g/dL Low 3.9-4.9 [facility] Comment on above: Order Comment: Speci men Type: BLOOD SPECIMENOrdering Facility: [facility] Address: [address] [place] [address] Performed By: #### 2 4323-8 ####[facility] LABCLIA [id number] [place] [address] ALP [Catalytic activity/Vol] 103 U/L Normal 38-113 [facility] Comment on above: Order Comment: Speci men Type: BLOOD SPECIMENOrdering Facility: [facility] Address: [address] [place] [id number] Performed By: #### 2 4323-8 ####[facility] LABCLIA [id number] [place] [address] ALT [Catalytic activity/Vol] 10 U/L Normal 10-54 [facility] Comment on above: Order Comment: Speci men Type: BLOOD SPECIMENOrdering Facility: [facility] Address: [address] [place] [address] Performed By: #### 2 4323-8 ####[facility] LABCLIA [id number] [place] [address] Anion gap [Moles/Vol] 12 mmol/L Normal 8-15 [facility] Comment on above: Order Comment: Speci men Type: BLOOD SPECIMENOrdering Facility: [facility] Address: [address] [place] [address] Performed By: #### 2 4323-8 ####[facility] LABCLIA [id number] [place] [address] AST [Catalytic activity/Vol] 18 U/L Normal 14-40 [facility] Comment on above: Order Comment: Speci men Type: BLOOD SPECIMENOrdering Facility: [facility] Address: [address] [place] [address] Performed By: #### 2 4323-8 ####[facility] LABCLIA [id number] [place] [address] Bilirubin [Mass/Vol] 0.3 mg/dL Normal 0.2-1.3 [facility] Comment on above: Order Comment: Speci men Type: BLOOD SPECIMENOrdering Facility: [facility] Address: [address] [place] [address] Performed By: #### 2 4323-8 ####[facility] LABCLIA [id number] [place] [address] Calcium [Mass/Vol] 9.0 mg/dL Normal 8.5-10.2 [facility] Comment on above: Order Comment: Speci men Type: BLOOD SPECIMENOrdering Facility: [facility] Address: [address] [place] [address] Performed By: #### 2 4323-8 ####[facility] LABCLIA [id number] [place] [address] Chloride [Moles/Vol] 105 mmol/L Normal 98-107 [facility] Comment on above: Order Comment: Speci men Type: BLOOD SPECIMENOrdering Facility: [facility] Address: [address] [place], [place] [address] Performed By: #### 2 4323-8 ####[facility] LABCLIA [id number] [place] [address] CO2 [Moles/Vol] 19 mmol/L Low 22-30 [facility] Comment on above: Order Comment: Speci men Type: BLOOD SPECIMENOrdering Facility: [facility] Address: [address] [place] [address] Performed By: #### 2 4323-8 ####[facility] LABCLIA [id number] [place] [address] Creatinine [Mass/Vol] 0.80 mg/dL Normal 0.73-1.22 [facility] Comment on above: Order Comment: Speci men Type: BLOOD SPECIMENOrdering Facility: [facility] Address: [address] [place] [address] Performed By: #### 2 4323-8 ####[facility] LABCLIA [id number] [place] [address] eGFRcr SerPlBld CKD-EPI 2020 99 mL/min/1.73m??? Normal >=60 [facility] Comment on above: Order Comment: Speci men Type: BLOOD SPECIMENOrdering Facility: [facility] Address: [address] [place] [address] Result Comment: Carly mated Glomerular Filtration Rate (eGFR) is calculated using the 2020 CKD-EPI creatinine equation. This equation utilizes serum creatinine, sex, and age as parameters. The creatinine assay has traceable calibration to isotope dilution-mass spectrometry. Refer to KDIGO guidelines for clinical interpretation. In patients with unstable renal function, e.g. those with acute kidney injury, the eGFR may not accurately reflect actual GFR. Performed By: #### 2 4323-8 ####[facility] LABCLIA [id number] [place] [address] Glucose [Mass/Vol] 116 mg/dL High 74-99 [facility] Comment on above: Order Comment: Speci men Type: BLOOD SPECIMENOrdering Facility: [facility] Address: [address] [place] [address] Result Comment: The [place] [employer] (ADA) provides guidance for cutoff values for fasting glucose and random glucose. The ADA defines fasting as no caloric intake for at least 8 hours. Fasting plasma glucose results between 100 to 125 mg/dL indicate increased risk for diabetes (prediabetes).Fasting plasma glucose results greater than or equal to 126 mg/dL meet the criteria for diagnosis of diabetes. In the absence of unequivocal hyperglycemia, results should be confirmed by repeat testing. In a patient with classic symptoms of hyperglycemia or hyperglycemic crisis, random plasma glucose results greater than or equal to 200 mg/dL meet the criteria for diagnosis of diabetes.Reference: Standards of Medical Care in Diabetes 2016, [place] [employer]. Diabetes Care. 2016.39(Suppl 1). Performed By: #### 2 4323-8 ####[facility] LABCLIA [id number] [place] [address] Potassium [Moles/Vol] 4.1 mmol/L Normal 3.7-5.1 [facility] Comment on above: Order Comment: Kavit[place] men Type: BLOOD SPECIMENOrdering Facility: [facility] Address: [address] [place] [address] Performed By: #### 2 4323-8 ####[facility] LABCLIA [id number] [place] [address] Protein [Mass/Vol] 7.1 g/dL Normal 6.3-8.0 [facility] Comment on above: Order Comment: Speci men Type: BLOOD SPECIMENOrdering Facility: [facility] Address: [address] [place] [address] Performed By: #### 2 4323-8 ####[facility] LABCLIA [id number] [place] [address] Sodium [Moles/Vol] 136 mmol/L Normal 136-144 [facility] Comment on above: Order Comment: Speci men Type: BLOOD SPECIMENOrdering Facility: [facility] Address: [address] [place] [address] Performed By: #### 2 4323-8 ####[facility] LABCLIA [id number] [place], [place] [address] Urea nitrogen [Mass/Vol] 21 mg/dL Normal 9-24 [facility] Comment on above: Order Comment: Speci men Type: BLOOD SPECIMENOrdering Facility: [facility] Address: [address] [place] [address] Performed By: #### 2 4323-8 ####[facility] LABCLIA [id number] [place] [address] CNNURSEon 02-13-2025 CNNURSE Normal [facility] CNPNon 02-13-2025 CNPN Normal [facility] CNNURSEon 02-09-2025 CNNURSE Normal [facility] POCT EKGon 02-09-2025 [facility] CNNURSEon 02-08-2025 CNNURSE Normal [facility] CNPNon 02-08-2025 CNPN Normal [facility] CNNURSEon 02-07-2025 CNNURSE Normal [facility] CNNURSEon 02-06-2025 CNNURSE Normal [facility] CNOVSPon 02-06-2025 CNOVSP Normal [facility] CNPNon 02-06-2025 CNPN Normal [facility] CBC W Auto Differential pane l (Bld)on 02-05-2025 Basophils (Bld) [#/Vol] 0.12 10*3/uL High <0.11 [facility] Comment on above: Order Comment: Speci men Type: BLOOD SPECIMENOrdering Facility: [facility] Address: [address] [place] [address] Performed By: #### 5 7021-8 ####[facility] LABCLIA [id number] [place] [address] Basophils/100 WBC (Bld) 0.6 % Normal [facility] Comment on above: Order Comment: Speci men Type: BLOOD SPECIMENOrdering Facility: [facility] Address: [address] [place] [address] Performed By: #### 5 7021-8 ####[facility] LABCLIA [id number] [place] [address] Differential cell count method Nom (Bld) Auto Normal [facility] Comment on above: Order Comment: Speci men Type: BLOOD SPECIMENOrdering Facility: [facility] Address: [address] [place] [address] Performed By: #### 5 7021-8 ####[facility] LABCLIA [id number] [place] [address] Eosinophils (Bld) [#/Vol] 10*3/uL Normal <0.46 [facility] Comment on above: Order Comment: Speci men Type: BLOOD SPECIMENOrdering Facility: [facility] Address: [address] [place] [address] Performed By: #### 5 7021-8 ####[facility] LABCLIA [id number] [place] [address] Eosinophils/100 WBC (Bld) 0.0 % Normal [facility] Comment on above: Order Comment: Speci men Type: BLOOD SPECIMENOrdering Facility: [facility] Address: [address] [place] [address] Performed By: #### 5 7021-8 ####[facility] LABCLIA [id number] [place] [address] Erythrocyte distribution width (RBC) [Ratio] 16.6 % High 11.5-15.0 [facility] Comment on above: Order Comment: Speci men Type: BLOOD SPECIMENOrdering Facility: [facility] Address: [address] [place] [address] Performed By: #### 5 7021-8 ####[facility] LABCLIA [id number] [place] [address] Hematocrit (Bld) [Volume fraction] 28.9 % Low 39.0-51.0 [facility] Comment on above: Order Comment: Speci men Type: BLOOD SPECIMENOrdering Facility: [facility] Address: [address] [place] [address] Performed By: #### 5 7021-8 ####[facility] LABCLIA [id number] [place] [address] Hemoglobin (Bld) [Mass/Vol] 9.1 g/dL Low 13.0-17.0 [facility] Comment on above: Order Comment: Speci men Type: BLOOD SPECIMENOrdering Facility: [facility] Address: [address] [place] [address] Performed By: #### 5 7021-8 ####[facility] LABCLIA [id number] [place] [address] Immature granulocytes (Bld) [#/Vol] 0.24 10*3/uL High <0.10 [facility] Comment on above: Order Comment: Speci men Type: BLOOD SPECIMENOrdering Facility: [facility] Address: [address] [place] [address] Performed By: #### 5 7021-8 ####[facility] LABCLIA [id number] [place] [address] Immature granulocytes/100 WBC (Bld) 1.2 % Normal [facility] Comment on above: Order Comment: Speci men Type: BLOOD SPECIMENOrdering Facility: [facility] Address: [address] [place] [address] Performed By: #### 5 7021-8 ####[facility] LABCLIA [id number] [place] [address] Lymphocytes (Bld) [#/Vol] 0.38 10*3/uL Low 1.00-4.00 [facility] Comment on above: Order Comment: Speci men Type: BLOOD SPECIMENOrdering Facility: [facility] Address: [address] [place] [address] Performed By: #### 5 7021-8 ####[facility] LABCLIA [id number] [place] [address] Lymphocytes/100 WBC (Bld) 1.9 % Normal [facility] Comment on above: Order Comment: Speci men Type: BLOOD SPECIMENOrdering Facility: [facility] Address: [address] [place] [address] Performed By: #### 5 7021-8 ####[facility] LABCLIA [id number] [place] [address] MCH (RBC) [Entitic mass] 25.9 pg Low 26.0-34.0 [facility] Comment on above: Order Comment: Speci men Type: BLOOD SPECIMENOrdering Facility: [facility] Address: [address] [place] [address] Performed By: #### 5 7021-8 ####[facility] LABIA [id number] [place] [address] MCHC (RBC) [Mass/Vol] 31.5 g/dL Normal 30.5-36.0 [facility] Comment on above: Order Comment: Speci men Type: BLOOD SPECIMENOrdering Facility: [facility] Address: [address] [place] [address] Performed By: #### 5 7021-8 ####[facility] LABCLIA [id number] [place] [address] MCV (RBC) [Entitic vol] 82.1 fL Normal 80.0-100.0 [facility] Comment on above: Order Comment: Speci men Type: BLOOD SPECIMENOrdering Facility: [facility] Address: [address] [place] [address] Performed By: #### 5 7021-8 ####[facility] LABIA [id number] [place] [address] Monocytes (Bld) [#/Vol] 1.10 10*3/uL High <0.87 [facility] Comment on above: Order Comment: Speci men Type: BLOOD SPECIMENOrdering Facility: [facility] Address: [address] [place] [address] Performed By: #### 5 7021-8 ####[facility] LABCLIA [id number] [place] [address] Monocytes/100 WBC (Bld) 5.6 % Normal [facility] Comment on above: Order Comment: Speci men Type: BLOOD SPECIMENOrdering Facility: [facility] Address: [address] [place] [address] Performed By: #### 5 7021-8 ####[facility] LABCLIA [id number] [place] [address] Neutrophils (Bld) [#/Vol] 17.87 10*3/uL High 1.45-7.50 [facility] Comment on above: Order Comment: Speci men Type: BLOOD SPECIMENOrdering Facility: [facility] Address: [address] [place] [address] Performed By: #### 5 7021-8 ####[facility] LABCLIA [id number] [place] [address] Neutrophils/100 WBC (Bld) 90.7 % Normal [facility] Comment on above: Order Comment: Speci men Type: BLOOD SPECIMENOrdering Facility: [facility] Address: [address] [place] [address] Performed By: #### 5 7021-8 ####[facility] LABCLIA [id number] [place] [address] Nucleated RBC (Bld) [#/Vol] 10*3/uL Normal <0.01 [facility] Comment on above: Order Comment: Speci men Type: BLOOD SPECIMENOrdering Facility: [facility] Address: [address] [place] [address] Performed By: #### 5 7021-8 ####[facility] LABCLIA [id number] [place] [address] Nucleated RBC/100 WBC (Bld) [Ratio] 0.0 /100 WBC Normal [facility] Comment on above: Order Comment: Speci men Type: BLOOD SPECIMENOrdering Facility: [facility] Address: [address] [place] [address] Performed By: #### 5 7021-8 ####[facility] LABCLIA [id number] [place] [address] Platelet mean volume (Bld) [Entitic vol] 9.7 fL Normal 9.0-12.7 [facility] Comment on above: Order Comment: Speci men Type: BLOOD SPECIMENOrdering Facility: [facility] Address: [address] [place] [address] Performed By: #### 5 7021-8 ####[facility] LABCLIA [id number] [place] [address] Platelets (Bld) [#/Vol] 426 10*3/uL High 150-400 [facility] Comment on above: Order Comment: Speci men Type: BLOOD SPECIMENOrdering Facility: [facility] Address: [address] [place] [address] Performed By: #### 5 7021-8 ####[facility] LABCLIA [id number] [place] [address] RBC (Bld) [#/Vol] 3.52 10*6/uL Low 4.20-6.00 [facility] Comment on above: Order Comment: Speci men Type: BLOOD SPECIMENOrdering Facility: [facility] Address: [address] [place] [address] Performed By: #### 5 7021-8 ####[facility] LABCLIA [id number] [place] [address] WBC (Bld) [#/Vol] 19.71 10*3/uL High 3.70-11.00 [facility] Comment on above: Order Comment: Speci men Type: BLOOD SPECIMENOrdering Facility: [facility] Address: [address] [id number] Performed By: #### 5 7021-8 ####[facility] LABCLIA [id number] [place] [address] CNNURSEon 02-05-2025 CNNURSE Normal [facility] CNOVSPon 02-05-2025 CNOVSP Normal [facility] Comprehensive metabolic 2000 panelon 02-05-2025 Albumin [Mass/Vol] 3.4 g/dL Low 3.9-4.9 [facility] Comment on above: Order Comment: Speci men Type: BLOOD SPECIMENOrdering Facility: [facility] Address: [address] [place] [address] Performed By: #### 1 9123-9, 86595-6 ####[facility] LABCLIA [id number] [place] [address] ALP [Catalytic activity/Vol] 95 U/L Normal 38-113 [facility] Comment on above: Order Comment: Speci men Type: BLOOD SPECIMENOrdering Facility: [facility] Address: [facility] [place] [address] Performed By: #### 1 9123-9, 29283-2 ####[facility] LABCLIA [id number] [place] [address] ALT [Catalytic activity/Vol] 10 U/L Normal 10-54 [facility] Comment on above: Order Comment: Speci men Type: BLOOD SPECIMENOrdering Facility: [facility] Address: [address] [place] [address] Performed By: #### 1 9123-9, 64038-4 ####[facility] LABCLIA [id number] [place] [address] Anion gap [Moles/Vol] 13 mmol/L Normal 8-15 [facility] Comment on above: Order Comment: Speci men Type: BLOOD SPECIMENOrdering Facility: [facility] Address: [address] [place] [address] Performed By: #### 1 9123-9, ####[facility] LABCLIA [id number] [place] [address] AST [Catalytic activity/Vol] 12 U/L Low 14-40 [facility] Comment on above: Order Comment: Speci men Type: BLOOD SPECIMENOrdering Facility: [facility] Address: [address] [place] [address] Performed By: #### 1 9123-9, 96595-7 ####[facility] LABCLIA [id number] [place] [address] Bilirubin [Mass/Vol] 0.3 mg/dL Normal 0.2-1.3 [facility] Comment on above: Order Comment: Speci men Type: BLOOD SPECIMENOrdering Facility: [facility] Address: [address] [place] [address] Performed By: #### 1 9123-9, ####[facility] LABCLIA [id number] [place] [address] Calcium [Mass/Vol] 9.1 mg/dL Normal 8.5-10.2 [facility] Comment on above: Order Comment: Speci men Type: BLOOD SPECIMENOrdering Facility: [facility] Address: [address] [place] [address] Performed By: #### 1 9123-9, 93679-4 ####[facility] LABCLIA [id number] [place] [address] Chloride [Moles/Vol] 104 mmol/L Normal 98-107 [facility] Comment on above: Order Comment: Speci men Type: BLOOD SPECIMENOrdering Facility: [facility] Address: [address] [place] [address] Performed By: #### 1 9123-9, 29680-1 ####[facility] LABCLIA [id number] [place] [address] CO2 [Moles/Vol] 19 mmol/L Low 22-30 [facility] Comment on above: Order Comment: Speci men Type: BLOOD SPECIMENOrdering Facility: [facility] Address: [address] [place] [address] Performed By: #### 1 9123-9, ####[facility] LABCLIA [id number] [place] [address] Creatinine [Mass/Vol] 0.89 mg/dL Normal 0.73-1.22 [facility] Comment on above: Order Comment: Speci men Type: BLOOD SPECIMENOrdering Facility: [facility] Address: [address] [place] [address] Performed By: #### 1 9123-9, ####[facility] LABCLIA [id number] [place] [address] eGFRcr SerPlBld CKD-EPI 2020 96 mL/min/1.73m??? Normal >=60 [facility] Comment on above: Order Comment: Speci men Type: BLOOD SPECIMENOrdering Facility: [facility] Address: [address] [place] [address] Result Comment: Carly mated Glomerular Filtration Rate (eGFR) is calculated using the 2020 CKD-EPI creatinine equation. This equation utilizes serum creatinine, sex, and age as parameters. The creatinine assay has traceable calibration to isotope dilution-mass spectrometry. Refer to KDIGO guidelines for clinical interpretation. In patients with unstable renal function, e.g. those with acute kidney injury, the eGFR may not accurately reflect actual GFR. Performed By: #### 1 9123-9, ####[facility] LABCLIA [id number] [place] [address] Glucose [Mass/Vol] 132 mg/dL High 74-99 [facility] Comment on above: Order Comment: Speci men Type: BLOOD SPECIMENOrdering Facility: [facility] Address: [address] [place], [place] [address] Result Comment: The [place] [employer] (ADA) provides guidance for cutoff values for fasting glucose and random glucose. The ADA defines fasting as no caloric intake for at least 8 hours. Fasting plasma glucose results between 100 to 125 mg/dL indicate increased risk for diabetes (prediabetes).Fasting plasma glucose results greater than or equal to 126 mg/dL meet the criteria for diagnosis of diabetes. In the absence of unequivocal hyperglycemia, results should be confirmed by repeat testing. In a patient with classic symptoms of hyperglycemia or hyperglycemic crisis, random plasma glucose results greater than or equal to 200 mg/dL meet the criteria for diagnosis of diabetes.Reference: Standards of Medical Care in Diabetes 2016, [place] [employer]. Diabetes Care. 2016.39(Suppl 1). Performed By: #### 1 9123-9, ####[facility] LABCLIA [id number] [place] [address] Potassium [Moles/Vol] 3.2 mmol/L Low 3.7-5.1 [facility] Comment on above: Order Comment: Speci men Type: BLOOD SPECIMENOrdering Facility: [facility] Address: [address] [place] [address] Performed By: #### 1 [address]12[address], ####[facility] LABCLIA [id number] [place] [address] Protein [Mass/Vol] 7.3 g/dL Normal 6.3-8.0 [facility] Comment on above: Order Comment: Speci men Type: BLOOD SPECIMENOrdering Facility: [facility] Address: [address] [place] [address] Performed By: #### 1 239, ####[facility] LABCLIA [id number] [place] [address] Sodium [Moles/Vol] 136 mmol/L Normal 136-144 [facility] Comment on above: Order Comment: Speci men Type: BLOOD SPECIMENOrdering Facility: [facility] Address: [address] [place] [address] Performed By: #### 1 [address]1239, 49786-2 ####[facility] LABCLIA [id number] [place] [address] Urea nitrogen [Mass/Vol] 19 mg/dL Normal 9-24 [facility] Comment on above: Order Comment: Speci men Type: BLOOD SPECIMENOrdering Facility: [facility] Address: [address] [place] [address] Performed By: #### 1 9123-9, 59557-7 ####[facility] LABCLIA [id number] [place] [address] Family Medicine Office/Clini c Noteon 02-05-2025 Family Medicine Office/Clinic Note Family Medicine Office/Clinic Note HPI Staff Jatin is a 64 year old male presenting with gout flareup wants thicken powder Colchicine was called in 01/30/25 for his gout...2 tabs together third had to take because it didn't help, both feet big toes are still left foot more than the right was told that thick powder can be bout OTC.... they have not looked for this, she gave him a teaspoon full of Honey they are going to hold off on this right right now History of Present Illness pt presents today for gout symptoms Review of Systems PHQ Score Initial Depression Screen Score: 0 SCORE Physical Exam Vitals & Measurements T: 36.2 ???C(Temporal Artery) HR: 112(Peripheral) RR: 18 BP: 102/74 SpO2: 98% HT: 68 in HT: 172.0 cm WT: 166.008 lb WT: 75.3 kg BMI: 25.45 General: alert, no acute distress ENMT: oral mucosa moist, no pharyngeal erythema or exudate Cardiovascular: regular rate and rhythm, normal peripheral perfusion Respiratory: Lungs CTA, respirations non labored Extremities: no deformity, no trauma Neurological: oriented x 4, LOC appropriate for age, CN II-XII intact, motor strength equal & normal bilaterally, speech normal ADIS large toe joints red, warm and tender to touch Assessment/Plan 1. Gout (M10.9: Gout, unspecified) pt took 3 colchicine tabs last week but it is still not improved. will send colchicine, allopurinol and indomethacin. RTC as needed 2. BMI 25.0-25.9,adult (Z68.25: Body mass index [BMI] 25.0-25.9, adult) BMI education given 3. Former smoker (Z87.891: Personal history of nicotine dependence) continue not smoking Follow-up No qualifying data available Problem List/Past Medical History Ongoing Arthritis BPH with urinary obstruction Encounter to establish care Fever Flank pain Former smoker Gout Head injury History of kidney stones Hospital discharge follow-up Hx of fdc use of blood thinners Impaired mobility Kidney stones Microhematuria Nonsmoker Overweight (BMI 25.0-29.9) Pneumonia Renal cyst Screening PSA (prostate specific antigen) Squamous cell lung cancer Syncope Weakness Wheezing Historical Hypothyroid Procedure/Surgical History Bronchoscopy (11/19/2024), TURP - Transurethral resection of prostate (05/17/2019), Cystoscopy (12/08/2018), Colonoscopy, Tonsillectomy. Medications albuterol 0.083% Inh Vianca 3 mL, 2.5 mg= 3 mL, Inhalation, q6hr, PRN allopurinol 300 mg Tab, 300 mg= 1 tab(s), Oral, BID Benadryl 25 mg Cap, 25 mg= 1 cap(s), Oral, Once benzonatate 200 mg oral capsule colchicine 0.6 mg Tab, 0.6 mg= 1 tab(s), Oral, Daily colchicine 0.6 mg Tab, See Instructions, 1 refills, Not taking indomethacin 50 mg oral capsule, 50 mg= 1 cap(s), Oral, TID, PRN meclizine 25 mg Tab metoprolol succinate 25 mg ER Tab, 50, Oral, Daily ondansetron 8 mg Tab prochlorperazine 10 mg Tab Remeron 15 mg Tab, 15 mg= 1 tab(s), Oral, Once a day (at bedtime) Senexon-S oral tablet Zoloft 50 mg Tab, 50 mg= 1 tab(s), Oral, Daily Allergies codeine (Sweating) Bactrim (Unable to void) Pollen (Watery eye, Eye swelling) sulfamethoxazole (Unknown, Unable to urinate) Social History Alcohol Never., 10/13/2024 Substance Abuse Never., 10/13/2024 Tobacco Former smoker, quit more than 30 days ago, quit 2017 Tobacco Use:. Never Smokeless Tobacco Use:. Household tobacco concerns: No., 02/02/2025 Family History Acute myocardial infarction: Father. Hypertension: [...] influenza virus vaccine, inactivated 03/14/2017 Recorded Normal [facility] Comment on above: Result Comment: Elec tronically Signed By: Carlos Sethi\.br\Date and Time Signed: 02/05/25 15:50 EDT Magnesium SerPl-mCncon 02-05 Magnesium [Mass/Vol] 1.7 mg/dL Normal 1.7-2.3 [facility] Comment on above: Order Comment: Speci men Type: BLOOD SPECIMENOrdering Facility: [facility] Address: [address] [place] [address] Performed By: #### 1 9123-9, 07580-1 ####[facility] LABCLIA [id number] [place] [address] Ambulatory Visit Summaryon 0 02-02-2025 Ambulatory Visit Summary Ambulatory Visit Summary JATIN KOCH II :1960 Visit Date:02/02/2025 Ambulatory Visit Instructions Your Care Team Attending Physician - Carlos Sethi Primary Care Physician - Carlos Sethi This Is Your Medications List albuterol (albuterol 0.083% Inh Vianca 3 mL) benzonatate (benzonatate 200 mg oral capsule) colchicine (colchicine 0.6 mg Tab) diphenhydrAMINE (Benadryl 25 mg Cap) docusate-senna (Senexon-S oral tablet) meclizine (meclizine 25 mg Tab) metoprolol (metoprolol succinate 25 mg ER Tab) mirtazapine (Remeron 15 mg Tab) ondansetron (ondansetron 8 mg Tab) prochlorperazine (prochlorperazine 10 mg Tab) sertraline (Zoloft 50 mg Tab) Procedures Performed Bronchoscopy (11/19/2024), TURP - Transurethral resection of prostate (05/17/2019), Cystoscopy (12/08/2018), Colonoscopy, Tonsillectomy. Discharge Vitals Temperature (Temporal Artery) 36.2 ???C Heart Rate (Peripheral) 112 Respiratory Rate 18 Blood Pressure 102/74 Height 172.0 cm Height 68 in Weight 75.3 kg Weight 166.008 lb BMI 25.45 Medications What How Much When Instructions Unchanged albuterol (albuterol 0.083% Inh Vianca 3 mL) 3 Milliliter Inhalation Every 6 hours as needed for for wheezing Unchanged benzonatate (benzonatate 200 mg oral capsule) TAKE 1 CAPSULE BY MOUTH THREE TIMES A DAY NEEDED FOR COUGH Unchanged colchicine (colchicine 0.6 mg Tab) See instructions TAKE TWO TABLETS BY MOUTH THEN WAIT FOR 1 HOUR AND TAKE A THIRD TABLET IF NEEDED Unchanged diphenhydrAMINE (Benadryl 25 mg Cap) 1 Capsules By Mouth Once Unchanged docusate-senna (Senexon-S oral tablet) TAKE 1 TABLET BY MOUTH TWICE A DAY Unchanged meclizine (meclizine 25 mg Tab) TAKE 1 TABLET BY MOUTH THREE TIMES A DAY Unchanged metoprolol (metoprolol succinate 25 mg ER Tab) 50 By Mouth Every day Unchanged mirtazapine (Remeron 15 mg Tab) 1 Tablets By Mouth Once a day (at bedtime) Unchanged ondansetron (ondansetron 8 mg Tab) Unchanged prochlorperazine (prochlorperazine 10 mg Tab) Unchanged sertraline (Zoloft 50 mg Tab) 1 Tablets By Mouth Every day Allergies codeine (Sweating) Bactrim (Unable to void) Pollen (Watery eye, Eye swelling) sulfamethoxazole (Unknown, Unable to urinate) Problems Ongoing - Any problem that you are currently receiving treatment for. 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 Language Information Language assistance services are available as needed. Normal [facility] CNNURSEon 02-02-2025 CNNURSE Normal [facility] CNNURSEon 02-01-2025 CNNURSE Normal [facility] CNNURSEon 01-31-2025 CNNURSE Normal [facility] CNNURSEon 01-30-2025 CNNURSE Normal [facility] CNOVSPon 01-30-2025 CNOVSP Normal [facility] CNPNon 01-30-2025 CNPN Normal [facility] CNNURSEon 01-29-2025 CNNURSE Normal [facility] Bacteria Bld Culton 01-27-20 25 Bacteria identified Cx Nom (Bld) CULTURE, BLOOD: No growth 5 days Normal [facility] Comment on above: Performed By: #### 6 00-7 ####[facility] LABCLIA [id number] [place] [address] [place] Bacteria identified Cx Nom (Bld) CULTURE, BLOOD: No growth 5 days Normal [facility] Comment on above: Performed By: #### 6 00-7 ####[facility] LABCLIA [id number] [place] [id number] [place] Bacteria Ur Culton 5 Bacteria identified Cx Nom (U) ORGANISM ID: 1 <10,000 CFU/ml Normal urogenital felisa Normal [facility] Comment on above: Performed By: #### 6 30-4 ####[facility] LABCLIA [id number] [place] [address] [place] CNNURSEon 01-26-2025 CNNURSE Normal [facility] CNPNon 01-26-2025 CNPN Normal [facility] UA DIP, URINE (POC)on 2024 BILIRUBIN UA (POCT) Small Abnormal Negative [facility] CLARITY UA (POCT) Slightly Cloudy Cl [facility] COLOR UA (POCT) Tonja [facility] GLUCOSE UA (POCT) Negative Negative mg/dL [facility] Hemoglobin Ql (U) Negative Negative [facility] Interpretation and review of laboratory results Abnormal [facility] KETONE UA (POCT) 15 mg/dL Abnormal [facility] LEUKOCYTES UA (POCT) Negative Negative [facility] NITRITE UA (POCT) Negative Negative [facility] PH UA (POCT) 6.0 4.5 - 8.0 [facility] Protein Ql (U) 100 mg/dL Abnormal Negative [facility] SPECIFIC GRAVITY UA (POCT) 1.020 1.005 - 1.030 [facility] UROBILINOGEN UA (POCT) 0.2 Karen l E.U./dL [facility] Location:[facility], [address] [place] [address] , [place], [place], [id number] [place] [address] POINT OF CARE [facility] XR CHEST 2V FRONTAL/LATon XR CHEST 2V FRONTAL/LAT Normal [facility] XR Chest PA and Lateralon IMPRESSION: No acute cardiopulmonary process. Transcribe Date/Time: Jan 26 2025 3:14P Dictated by: BEBO ANDREA MD This examination was interpreted and the report reviewed and electronically signed by: BEBO ANDREA MD on Jan 26 2025 3:19PM EST Thank you for allowing us to participate in the care of your patient. Should there be any questions regarding this interpretation, please call [phone]. If you are unable to reach us at the number above, please feel free to contact [facility] eRadiology at [phone]. DIVISION OF RADIOLOGY * * *Final Report* [...] effusion or pneumothorax. Pulmonary vasculature is unremarkable. DIVISION OF RADIOLOGY Provider, Alfred Martinezzeke [facility] - 01/26/2025 * * *Final Report* * [...] any questions regarding this interpretation, please call [phone]. If you are unable to reach us at the number above, please feel free to contact [facility] eRadiology at [phone]. [facility] Radiology Study observation (narrative) Aniket Saul XR Chest PA and LateralOrder ed By: Ccf Provider on 01-26-2025 [facility] CNNURSEon 01-25-2025 CNNURSE Normal [facility] CNPNon 01-25-2025 CNPN Normal [facility] CBC W Auto Differential pane l (Bld)on 01-24-2025 Anisocytosis Ql (Bld) Present Normal [facility] Comment on above: Order Comment: Speci men Type: BLOOD SPECIMENOrdering Facility: [facility] Address: [address] [place] [address] Performed By: #### 5 7021-8 ####[facility] LABCLIA [id number] [place] [id number] LABCLIA [id number] [place] [address] [place] Basophils (Bld) [#/Vol] 10*3/uL Normal <0.11 [facility] Comment on above: Order Comment: Speci men Type: BLOOD SPECIMENOrdering Facility: [facility] Address: [address] [place] [address] Performed By: #### 5 7021-8 ####[facility] LABCLIA [id number] [address] LABCLIA [id number] [place] [address] [place] Basophils/100 WBC (Bld) 1.0 % Normal [facility] Comment on above: Order Comment: Speci men Type: BLOOD SPECIMENOrdering Facility: [facility] Address: [address] [place] [address] Performed By: #### 5 7021-8 ####[facility] LABCLIA [id number] [place] [id number] LABCLIA [id number] [place] [address] [place] Eosinophils (Bld) [#/Vol] 0.07 10*3/uL Normal <0.46 [facility] Comment on above: Order Comment: Speci men Type: BLOOD SPECIMENOrdering Facility: [facility] Address: [address] [place] [address] Performed By: #### 5 7021-8 ####[facility] LABCLIA [id number] [place] [id number] LABCLIA [id number] [place] [address] [place] Eosinophils/100 WBC (Bld) 3.5 % Normal [facility] Comment on above: Order Comment: Speci men Type: BLOOD SPECIMENOrdering Facility: [facility] Address: [address] [place] [address] Performed By: #### 5 7021-8 ####[facility] LABCLIA [id number] [address] LABCLIA [id number] [place] [address] [place] Erythrocyte distribution width (RBC) [Ratio] 15.2 % High 11.5-15.0 [facility] Comment on above: Order Comment: Speci men Type: BLOOD SPECIMENOrdering Facility: [facility] Address: [address] [place] [address] Performed By: #### 5 7021-8 ####[facility] LABCLIA [id number] [address] LABCLIA [id number] [place] [address] [place] Hematocrit (Bld) [Volume fraction] 28.8 % Low 39.0-51.0 [facility] Comment on above: Order Comment: Speci men Type: BLOOD SPECIMENOrdering Facility: [facility] Address: [address] [place] [address] Performed By: #### 5 7021-8 ####[facility] LABCLIA [id number] [address] LABCLIA [id number] [place] [address] [place] Hemoglobin (Bld) [Mass/Vol] 9.4 g/dL Low 13.0-17.0 [facility] Comment on above: Order Comment: Speci men Type: BLOOD SPECIMENOrdering Facility: [facility] Address: [address] [place] [address] Performed By: #### 5 7021-8 ####[facility] LABCLIA [id number] [address] LABCLIA [id number] [place] [address] [place] Immature granulocytes (Bld) [#/Vol] 10*3/uL Normal <0.10 [facility] Comment on above: Order Comment: Speci men Type: BLOOD SPECIMENOrdering Facility: [facility] Address: [address] [place] [address] Performed By: #### 5 7021-8 ####[facility] LABCLIA [id number] [address] LABCLIA [id number] [place] [address] [place] Immature granulocytes/100 WBC (Bld) 1.0 % Normal [facility] Comment on above: Order Comment: Speci men Type: BLOOD SPECIMENOrdering Facility: [facility] Address: [address] [place] [address] Performed By: #### 5 7021-8 ####[facility] LABCLIA [id number] [address] LABCLIA [id number] [place] [address] [place] Lymphocytes (Bld) [#/Vol] 0.87 10*3/uL Low 1.00-4.00 [facility] Comment on above: Order Comment: Speci men Type: BLOOD SPECIMENOrdering Facility: [facility] Address: [address] [place] [address] Performed By: #### 5 7021-8 ####[facility] LABCLIA [id number] [address] LABCLIA [id number] [place] [id number] [place] Lymphocytes/100 WBC (Bld) 43.7 % Normal [facility] Comment on above: Order Comment: Speci men Type: BLOOD SPECIMENOrdering Facility: [facility] Address: [address] [place] [address] Performed By: #### 5 7021-8 ####[facility] LABCLIA [id number] [address] LABCLIA [id number] [place] [address] [place] MCH (RBC) [Entitic mass] 26.6 pg Normal 26.0-34.0 [facility] Comment on above: Order Comment: Speci men Type: BLOOD SPECIMENOrdering Facility: [facility] Address: [address] [place] [address] Performed By: #### 5 7021-8 ####[facility] LABCLIA [id number] [address] LABCLIA [id number] [place] [address] [place] MCHC (RBC) [Mass/Vol] 32.6 g/dL Normal 30.5-36.0 [facility] Comment on above: Order Comment: Speci men Type: BLOOD SPECIMENOrdering Facility: [facility] Address: [address] [place] [address] Performed By: #### 5 7021-8 ####[facility] LABCLIA [id number] [address] LABCLIA [id number] [place] [address] [place] MCV (RBC) [Entitic vol] 81.4 fL Normal 80.0-100.0 [facility] Comment on above: Order Comment: Speci men Type: BLOOD SPECIMENOrdering Facility: [facility] Address: [address] [place] [address] Performed By: #### 5 7021-8 ####[facility] LABCLIA [id number] [place] [id number] LABCLIA [id number] [place] [address] [place] Monocytes (Bld) [#/Vol] 0.65 10*3/uL Normal <0.87 [facility] Comment on above: Order Comment: Speci men Type: BLOOD SPECIMENOrdering Facility: [facility] Address: [address] [place] [address] Performed By: #### 5 7021-8 ####[facility] LABCLIA [id number] [address] LABCLIA [id number] [place] [address] [place] Monocytes/100 WBC (Bld) 32.7 % Normal [facility] Comment on above: Order Comment: Speci men Type: BLOOD SPECIMENOrdering Facility: [facility] Address: [address] [place] [address] Performed By: #### 5 7021-8 ####[facility] LABCLIA [id number] [address] LABCLIA [id number] [place] [address] [place] Neutrophils (Bld) [#/Vol] 0.36 10*3/uL Low 1.45-7.50 [facility] Comment on above: Order Comment: Speci men Type: BLOOD SPECIMENOrdering Facility: [facility] Address: [address] [place] [address] Performed By: #### 5 7021-8 ####[facility] LABCLIA [id number] [address] LABCLIA [id number] [place] [address] [place] Neutrophils/100 WBC (Bld) 18.1 % Normal [facility] Comment on above: Order Comment: Speci men Type: BLOOD SPECIMENOrdering Facility: [facility] Address: [address] [place] [address] Performed By: #### 5 7021-8 ####[facility] LABCLIA [id number] [address] LABCLIA [id number] [place] [address] [place] Ovalocytes LM Ql (Bld) Few Normal Cl [facility] Comment on above: Order Comment: Speci men Type: BLOOD SPECIMENOrdering Facility: [facility] Address: [address] [place] [address] Performed By: #### 5 7021-8 ####[facility] LABCLIA [id number] [address] LABCLIA [id number] [place] [address] [place] Platelet clump LM Ql (Bld) Present Normal [facility] Comment on above: Order Comment: Speci men Type: BLOOD SPECIMENOrdering Facility: [facility] Address: [address] [place] [address] Performed By: #### 5 7021-8 ####[facility] LABCLIA [id number] [address] LABCLIA [id number] [place] [address] [place] Platelet mean volume (Bld) [Entitic vol] 10.2 fL Normal 9.0-12.7 [facility] Comment on above: Order Comment: Speci men Type: BLOOD SPECIMENOrdering Facility: [facility] Address: [address] [place] [address] Performed By: #### 5 7021-8 ####[facility] LABCLIA [id number] [place] [id number] LABCLIA [id number] [facility] [address] [address] [place] Platelets (Bld) [#/Vol] 270 10*3/uL Normal 150-400 [facility] Comment on above: Order Comment: Speci men Type: BLOOD SPECIMENOrdering Facility: [facility] Address: [address] [place] [address] Result Comment: No c lot detected. Performed By: #### 5 7021-8 ####[facility] LABCLIA [id number] [address] LABCLIA [id number] [address] [address] [place] Platelets Estimate (Bld) [#/Vol] Adequate Normal [facility] Comment on above: Order Comment: Speci men Type: BLOOD SPECIMENOrdering Facility: [facility] Address: [address] [place] [address] Performed By: #### 5 7021-8 ####[facility] LABCLIA [id number] [place] [id number] LABCLIA [id number] [address] [address] [place] RBC (Bld) [#/Vol] 3.54 10*6/uL Low 4.20-6.00 [facility] Comment on above: Order Comment: Speci men Type: BLOOD SPECIMENOrdering Facility: [facility] Address: [address] [place] [address] Performed By: #### 5 7021-8 ####[facility] LABCLIA [id number] [place] [id number] LABCLIA [id number] [facility] [address] [address] [place] RBC FRAGMENTS Few Abnormal None Seen [facility] Comment on above: Order Comment: Speci men Type: BLOOD SPECIMENOrdering Facility: [facility] Address: [address] [place] [address] Performed By: #### 5 7021-8 ####CHIGNIK LAGOONTRUDY [facility] LABCLIA [id number] [address] LABCLIA [id number] [place] [address] [place] RED CELL MORPH Reviewed: see result s of individual morphologies Normal [facility] Comment on above: Order Comment: Speci men Type: BLOOD SPECIMENOrdering Facility: [facility] Address: [address] [place] [address] Performed By: #### 5 7021-8 ####[facility] LABCLIA [id number] [address] LABCLIA [id number] [place] [address] [place] WBC (Bld) [#/Vol] 1.99 10*3/uL Low 3.70-11.00 [facility] Comment on above: Order Comment: Speci men Type: BLOOD SPECIMENOrdering Facility: [facility] Address: [address] [place] [address] Performed By: #### 5 7021-8 ####[facility] LABCLIA [id number] [address] LABCLIA [id number] [place] [address] [place] WBC Left Shift Ql (Bld) Present Normal [facility] Comment on above: Order Comment: Speci men Type: BLOOD SPECIMENOrdering Facility: [facility] Address: [address] [place] [address] Performed By: #### 5 7021-8 ####[facility] LABCLIA [id number] [address] [facility] LABCLIA [id number] [place] [address] [address] [place] CNNURSEon 01-24-2025 CNNURSE Normal [facility] CNPNon 01-24-2025 CNPN Normal [facility] Comprehensive metabolic 2000 panelOrdered By: Kayla Sutton on 01-24-2025 Albumin [Mass/Vol] 3.8 g/dL Low 3.9 - 4.9 g/dL [facility] ALP [Catalytic activity/Vol] 73 U/L 38 - 113 U/L [facility] ALT [Catalytic activity/Vol] 11 U/L 10 - 54 U/L [facility] Anion gap [Moles/Vol] 12 mmol/L 8 - 15 mmol/L [facility] AST [Catalytic activity/Vol] 10 U/L Low 14 - 40 U/L [facility] Bilirubin [Mass/Vol] 0.4 mg/dL 0.2 - 1 .3 mg/dL [facility] Calcium [Mass/Vol] 9.6 mg/dL 8.5 - 10. 2 mg/dL [facility] Chloride [Moles/Vol] 98 mmol/L 98 - 10 7 mmol/L [facility] CO2 [Moles/Vol] 21 mmol/L Low 22 - 30 mmol/L [facility] Creatinine [Mass/Vol] 0.88 mg/dL 0.73 - 1.22 mg/dL [facility] GFR/1.73 sq M.predicted among non-blacks MDRD (S/P/Bld) [Vol rate/Area] 97 mL/min/{1.73_m2} - PINF [facility] Comment on above: Estimated Glomerular Filtration Rate (eGFR) is calculated using the 2020 CKD-EPI creatinine equation. This equation utilizes serum creatinine, sex, and age as parameters. The creatinine assay has traceable calibration to isotope dilution-mass spectrometry. Refer to KDIGO guidelines for clinical interpretation. In patients with unstable renal function, e.g. those with acute kidney injury, the eGFR may not accurately reflect actual GFR. Glucose [Mass/Vol] 93 mg/dL 74 - 99 mg/dL [facility] Comment on above: The [place] Diabete s Association (ADA) provides guidance for cutoff values [...] Standards of Medical Care in Diabetes 2016, [place] [employer]. Diabetes Care. 2016.39(Suppl 1). Interpretation and review of laboratory results Abnormal [facility] Potassium [Moles/Vol] 4.5 mmol/L 3.7 - 5.1 mmol/L [facility] Protein [Mass/Vol] 7.9 g/dL 6.3 - 8.0 g/dL [facility] Sodium [Moles/Vol] 131 mmol/L Low 136 - 144 mmol/L [facility] Urea nitrogen [Mass/Vol] 17 mg/dL 9 - 24 mg/dL [facility] Comprehensive metabolic 2000 panelon 01-24-2025 Albumin [Mass/Vol] 3.8 g/dL Low 3.9-4.9 [facility] Comment on above: Order Comment: Speci men Type: BLOOD SPECIMENOrdering Facility: [facility] Address: [address] [place] [address] Performed By: #### 2 4323-8 ####[facility] LABCLIA [id number] [place] [address] ALP [Catalytic activity/Vol] 73 U/L Normal 38-113 [facility] Comment on above: Order Comment: Speci men Type: BLOOD SPECIMENOrdering Facility: [facility] Address: [address] [place] [address] Performed By: #### 2 4323-8 ####[facility] LABCLIA [id number] [place] [address] ALT [Catalytic activity/Vol] 11 U/L Normal 10-54 [facility] Comment on above: Order Comment: Speci men Type: BLOOD SPECIMENOrdering Facility: [facility] Address: [address] [place] [address] Performed By: #### 2 4323-8 ####[facility] LABCLIA [id number] [place] [address] Anion gap [Moles/Vol] 12 mmol/L Normal 8-15 [facility] Comment on above: Order Comment: Speci men Type: BLOOD SPECIMENOrdering Facility: [facility] Address: [address] [place] [address] Performed By: #### 2 4323-8 ####[facility] LABCLIA [id number] [place] [address] AST [Catalytic activity/Vol] 10 U/L Low 14-40 [facility] Comment on above: Order Comment: Speci men Type: BLOOD SPECIMENOrdering Facility: [facility] Address: [address] [place] [address] Performed By: #### 2 4323-8 ####[facility] LABCLIA [id number] [place] [address] Bilirubin [Mass/Vol] 0.4 mg/dL Normal 0.2-1.3 [facility] Comment on above: Order Comment: Speci men Type: BLOOD SPECIMENOrdering Facility: [facility] Address: [address] [place] [address] Performed By: #### 2 4323-8 ####[facility] LABCLIA [id number] [place] [address] Calcium [Mass/Vol] 9.6 mg/dL Normal 8.5-10.2 [facility] Comment on above: Order Comment: Speci men Type: BLOOD SPECIMENOrdering Facility: [facility] Address: [address] [place], [place] [address] Performed By: #### 2 4323-8 ####[facility] LABCLIA [id number] [place] [address] Chloride [Moles/Vol] 98 mmol/L Normal 98-107 [facility] Comment on above: Order Comment: Speci men Type: BLOOD SPECIMENOrdering Facility: [facility] Address: [address] [place] [address] Performed By: #### 2 4323-8 ####[facility] LABCLIA [id number] [place] [address] CO2 [Moles/Vol] 21 mmol/L Low 22-30 [facility] Comment on above: Order Comment: Speci men Type: BLOOD SPECIMENOrdering Facility: [facility] Address: [address] [place] [address] Performed By: #### 2 4323-8 ####[facility] LABCLIA [id number] [place] [address] Creatinine [Mass/Vol] 0.88 mg/dL Normal 0.73-1.22 [facility] Comment on above: Order Comment: Speci men Type: BLOOD SPECIMENOrdering Facility: [facility] Address: [address] [place] [address] Performed By: #### 2 4323-8 ####[facility] LABCLIA [id number] [place] [address] eGFRcr SerPlBld CKD-EPI 2020 97 mL/min/1.73m??? Normal >=60 [facility] Comment on above: Order Comment: Speci men Type: BLOOD SPECIMENOrdering Facility: [facility] Address: [address] [place] [address] Result Comment: Carly mated Glomerular Filtration Rate (eGFR) is calculated using the 2020 CKD-EPI creatinine equation. This equation utilizes serum creatinine, sex, and age as parameters. The creatinine assay has traceable calibration to isotope dilution-mass spectrometry. Refer to KDIGO guidelines for clinical interpretation. In patients with unstable renal function, e.g. those with acute kidney injury, the eGFR may not accurately reflect actual GFR. Performed By: #### 2 4323-8 ####[facility] LABCLIA [id number] [place] [address] Glucose [Mass/Vol] 93 mg/dL Normal 74-99 [facility] Comment on above: Order Comment: Speci men Type: BLOOD SPECIMENOrdering Facility: [facility] Address: [address] [place] [address] Result Comment: The [place] Diabetes Association (ADA) provides guidance for cutoff values for fasting glucose and random glucose. The ADA defines fasting as no caloric intake for at least 8 hours. Fasting plasma glucose results between 100 to 125 mg/dL indicate increased risk for diabetes (prediabetes).Fasting plasma glucose results greater than or equal to 126 mg/dL meet the criteria for diagnosis of diabetes. In the absence of unequivocal hyperglycemia, results should be confirmed by repeat testing. In a patient with classic symptoms of hyperglycemia or hyperglycemic crisis, random plasma glucose results greater than or equal to 200 mg/dL meet the criteria for diagnosis of diabetes.Reference: Standards of Medical Care in Diabetes 2016, [place] Diabetes [employer]. Diabetes Care. 2016.39(Suppl 1). Performed By: #### 2 4323-8 ####[facility] LABCLIA [id number] [place] [address] Potassium [Moles/Vol] 4.5 mmol/L Normal 3.7-5.1 [facility] Comment on above: Order Comment: Speci men Type: BLOOD SPECIMENOrdering Facility: [facility] Address: [address] [place] [address] Performed By: #### 2 4323-8 ####[facility] LABCLIA [id number] [place] [address] Protein [Mass/Vol] 7.9 g/dL Normal 6.3-8.0 [facility] Comment on above: Order Comment: Speci men Type: BLOOD SPECIMENOrdering Facility: [facility] Address: [address] [place] [address] Performed By: #### 2 4323-8 ####[facility] LABCLIA [id number] [place] [address] Sodium [Moles/Vol] 131 mmol/L Low 136-144 [facility] Comment on above: Order Comment: Speci men Type: BLOOD SPECIMENOrdering Facility: [facility] Address: [address] [place] [address] Performed By: #### 2 4323-8 ####[facility] LABCLIA [id number] [place] [address] Urea nitrogen [Mass/Vol] 17 mg/dL Normal 9-24 [facility] Comment on above: Order Comment: Speci men Type: BLOOD SPECIMENOrdering Facility: [facility] Address: [address] [place] [address] Performed By: #### 2 4323-8 ####[facility]CLIA [id number] [place] [address] CNNURSEon 01-23-2025 CNNURSE Normal [facility] CNOVon 01-23-2025 CNOV Normal [facility] CNOVSPon 01-23-2025 CNOVSP Normal [facility] CNNURSEon 01-22-2025 CNNURSE Normal [facility] Population Healthon 01-23-20 [facility] Population Health Case Information Case Priority: None Programs: -- Referral Source: Bit Setter Referral Reason: Care coordination Case Type: Transition Care Management Risk Score: -- Case Status: Enrolled (January 22, 2025) Date Assigned: January 22, 2025 Assigned By: Gordo Humphries Date Enrolled: January 22, 2025 Assigned Primary Personnel: Gordo Humphries Assigned Secondary Personnel: -- Case Physician: Carlos Sethi Problems Ongoing Arthritis BMI 27.0-27.9,adult BPH with urinary obstruction Encounter to establish care Fever Flank pain Former smoker Gout Head injury History of kidney stones Hospital discharge follow-up Hx of fdc use of blood thinners Impaired mobility Kidney stones Microhematuria Nonsmoker Overweight (BMI 25.0-29.9) Pneumonia Renal cyst Screening PSA (prostate specific antigen) Squamous cell lung cancer Syncope Weakness Wheezing Historical Hypothyroid Procedure/Surgical History TURP - Transurethral resection of prostate (05/17/2019), Cystoscopy (12/08/2018), Colonoscopy, Tonsillectomy. Home Medications albuterol 0.083% Inh Vianca 3 mL, 2.5 mg= 3 mL, Inhalation, q6hr, PRN Benadryl 25 mg Cap, 25 mg= 1 cap(s), Oral, Once benzonatate 200 mg oral capsule doxycycline monohydrate 100 mg oral capsule esomeprazole 40 mg Cap-EC, 40 mg= 1 cap(s), Oral, Daily, 2 refills meclizine 25 mg Tab metoprolol succinate 25 mg ER Tab, 25 mg= 1 tab(s), Oral, Daily Multi Vitamin+ ondansetron 8 mg Tab Potassium Chloride (Qfl-Ruuc-Xho M20) 20 mEq oral tablet, extended release prochlorperazine 10 mg Tab Senexon-S oral tablet Allergies codeine (Sweating) Bactrim (Unable to void) Pollen (Watery eye, Eye swelling) sulfamethoxazole (Unknown, Unable to urinate) Social History Alcohol Never., 10/13/2024 Substance Abuse Never., 10/13/2024 Tobacco Former smoker, quit more than 30 days ago, quit 2016 Tobacco Use:. Never Smokeless Tobacco Use:. Household tobacco concerns: No., 12/29/2024 Family History Acute myocardial infarction: Father. Hypertension: Father. Screenings and Assessments 01/22/25 10:45:00 Result Name Value Comment Phone Call Monitoring Consent Agreed to continue call Phone Verification Patient Information Full name, street address and date of verified CM Program Enrollment Provides verbal consent for enrollment Goals and Interventions Care Plan Progress Note Admit Date[place] 01/15/25 [facility] of Discharge: 01/18/25 Follow-up appointment scheduled? patient declined at this time Did you understand your discharge instructions? yes Are you able to follow them? yes Did you receive new medications? yes, guaifenesin 1200 mg QD, sertraline 50 mg QD, Augmentin BID x 42 days, oxycodone 2.5 mg Q 6 hr PRN x 7 days- Stop: clindamycin, cefdinir- Change Metoprolol Succ. 50 mg QD Have you filled the Rx's? yes Are you taking them as prescribed? yes Are you having difficulty eating or swallowing your pills? no Are you having any stomach upset, diarrhea or constipation? no How are you sleeping? good Are you having any pain? Sternal CP at times, takes Tylenol and oxycodone as needed and that helps Do you have everything you need at home to care for yourself? yes Do you have Home Health? no Called patient for initial Transitional Care Management Program call. Readmission score not available. Reviewed d/c summary and dx of: PNA, Lung abscess. Reviewed purpose and side effects of new medication with patient. Medication reconciliation will need to be completed at . Patient states he is 'not too bad.' States he is taking his medications. Notes his breathing 'is a little tough,' but that is on- going. He is using his IS provided to him. He is drinking good. Notes his appetite is getting better, he is drinking protein shakes too. Denies bowel or urinary issues. Patient has follow up with his circulation tender tomorrow 02/09/25 and appointment with Palliative [facility] 01/23/25. Patient declines to schedule follow up with PCP at this time. CN will continue to follow patient in the TCM program. CN explained TCM program and gave contact number. Nothing further at this time. Communication Events Date: January 22, 2025 Method: Phone call Type: Outbound Duration (min): 6 Outcome: Case discussion Contact Type: Patient Contact Name: JATIN KOCH II Notes: TCM#1- See tcm note. Created By: Gordo Humphries Normal [facility] CNNURSEon 01-19-2025 CNNURSE Normal [facility] Basic Metabolic Panelon Anion gap [Moles/Vol] 14.5 mmol/L Normal 6.0-15.0 Th [facility] Comment on above: Performed By: #### M G, HS TROP, DDIMER, TSH3, CMP, BNP, CBC, [id number], PTT, PT #### [facility] [address] [place] [address] [place] Calcium [Mass/Vol] 9.0 mg/dL Normal 8.6-10.3 [facility] Comment on above: Performed By: #### M G, HS TROP, DDIMER, TSH3, CMP, BNP, CBC, [id number], PTT, PT #### [facility] [address] [place] [id number] [place] Chloride [Moles/Vol] 102 mmol/L Normal 98-107 [facility] Comment on above: Performed By: #### M G, HS TROP, DDIMER, TSH3, CMP, BNP, CBC, [id number], PTT, PT #### [address] CO2 [Moles/Vol] 20.7 mmol/L Low 21.0-31.0 [facility] Comment on above: Performed By: #### M G, HS TROP, DDIMER, TSH3, CMP, BNP, CBC, [id number], PTT, PT #### [facility] [address] Creatinine [Mass/Vol] 0.67 mg/dL Low 0.70-1.30 [facility] Comment on above: Performed By: #### M G, HS TROP, DDIMER, TSH3, CMP, BNP, CBC, [id number], PTT, PT #### [address] Creatinine Clr Calc Pharmacy 109.18 Normal [facility] Comment on above: Result Comment: PERF ORMED BY: [place] [address] PATHOLOGIST STATION INSPECTOR KELVIN HOLMAN M.D. Performed By: #### M G, HS TROP, DDIMER, TSH3, CMP, BNP, CBC, [id number], PTT, PT #### [address] GFR/1.73 sq M.predicted MDRD (S/P/Bld) [Vol rate/Area] mL/min/{1.73_m2} Normal [facility] Comment on above: Performed By: #### M G, HS TROP, DDIMER, TSH3, CMP, BNP, CBC, [id number], PTT, PT #### [address] Glucose [Mass/Vol] 83 mg/dL Normal 70-100 [facility] Comment on above: Result Comment: Strong Glucose Reference Range is dependent on time and content of last meal. Glucose of more than 200 mg/dL in a nonstressed, ambulatory subject supports the diagnosis of Diabetes Mellitus. ADA recommended reference range Performed By: #### M G, HS TROP, DDIMER, TSH3, CMP, BNP, CBC, [id number], PTT, PT #### [address] Potassium [Moles/Vol] 4.2 mmol/L Normal 3.5-5.1 [facility] Comment on above: Performed By: #### M G, HS TROP, DDIMER, TSH3, CMP, BNP, CBC, [id number], PTT, PT #### [facility] [address] Sodium [Moles/Vol] 133 mmol/L Low 136-145 [facility] Comment on above: Performed By: #### M G, HS TROP, DDIMER, TSH3, CMP, BNP, CBC, [id number], PTT, PT #### [address] Urea nitrogen [Mass/Vol] 17 mg/dL Normal 7-25 [facility] Comment on above: Performed By: #### M G, HS TROP, DDIMER, TSH3, CMP, BNP, CBC, [id number], PTT, PT #### [address] CNNURSEon 01-18-2025 CNNURSE Normal [facility] CNOVon 01-18-2025 CNOV Normal [facility] CNOVSPon 01-18-2025 CNOVSP Normal [facility] CNPNon 01-18-2025 CNPN Normal [facility] Diff and CBCon 01-18-2025 Anisocytosis Ql (Bld) Slight Normal [facility] Comment on above: Performed By: #### M G, HS TROP, DDIMER, TSH3, CMP, BNP, CBC, [id number], PTT, PT #### [address] Band form neutrophils/100 WBC (Bld) 6 % High 0-5 [facility] Comment on above: Performed By: #### M G, HS TROP, DDIMER, TSH3, CMP, BNP, CBC, [id number], PTT, PT #### [address] Eosinophils/100 WBC (Bld) 6 % High 1-3 [facility] Comment on above: Performed By: #### M G, HS TROP, DDIMER, TSH3, CMP, BNP, CBC, [id number], PTT, PT #### [address] Erythrocyte distribution width (RBC) [Ratio] 16.0 % High 12.0-14.8 [facility] Comment on above: Performed By: #### M G, HS TROP, DDIMER, TSH3, CMP, BNP, CBC, [id number], PTT, PT #### [address] Giant Platelet Tally 3 /100{WBC} Normal [facility] Comment on above: Performed By: #### M G, HS TROP, DDIMER, TSH3, CMP, BNP, CBC, [id number], PTT, PT #### [address] Hematocrit (Bld) [Volume fraction] 25.7 % Low 38.8-50.0 [facility] Comment on above: Performed By: #### M G, HS TROP, DDIMER, TSH3, CMP, BNP, CBC, [id number], PTT, PT #### [address] Hemoglobin (Bld) [Mass/Vol] 8.5 g/dL Low 13.0-17.0 [facility] Comment on above: Performed By: #### M G, HS TROP, DDIMER, TSH3, CMP, BNP, CBC, [id number], PTT, PT #### [address] Hypochromasia Slight Normal [facility] Comment on above: Performed By: #### M G, HS TROP, DDIMER, TSH3, CMP, BNP, CBC, [id number], PTT, PT #### [address] Lymphocytes/100 WBC (Bld) 15 % Low 18-42 [facility] Comment on above: Performed By: #### M G, HS TROP, DDIMER, TSH3, CMP, BNP, CBC, [id number], PTT, PT #### [address] MCH (RBC) [Entitic mass] 26.4 pg Low 27.5-35.2 [facility] Comment on above: Performed By: #### M G, HS TROP, DDIMER, TSH3, CMP, BNP, CBC, [id number], PTT, PT #### [address] MCV (RBC) [Entitic vol] 80.1 fL Low 83.5-101 [facility] Comment on above: Performed By: #### M G, HS TROP, DDIMER, TSH3, CMP, BNP, CBC, [id number], PTT, PT #### [address] Mean Corpuscular HGB Conc 33.0 g/dL Normal 32.5-35.6 [facility] Comment on above: Performed By: #### M G, HS TROP, DDIMER, TSH3, CMP, BNP, CBC, [id number], PTT, PT #### [address] Microcytosis Slight Normal [facility] Comment on above: Performed By: #### M G, HS TROP, DDIMER, TSH3, CMP, BNP, CBC, [id number], PTT, PT #### [address] Monocytes/100 WBC (Bld) 1 % Low 2-11 [facility] Comment on above: Performed By: #### M G, HS TROP, DDIMER, TSH3, CMP, BNP, CBC, [id number], PTT, PT #### [address] Ovalocytes Slight Normal [facility] Comment on above: Performed By: #### M G, HS TROP, DDIMER, TSH3, CMP, BNP, CBC, [id number], PTT, PT #### [address] Platelet Estimate Normal Normal Normal [facility] Comment on above: Performed By: #### M G, HS TROP, DDIMER, TSH3, CMP, BNP, CBC, [id number], PTT, PT #### [address] Platelet mean volume (Bld) [Entitic vol] 8.2 fL Normal 6.6-10.1 [facility] Comment on above: Result Comment: PERF ORMED BY: [place] [address] PATHOLOGIST STATION INSPECTOR KELVIN HOLMAN M.D. Performed By: #### M G, HS TROP, DDIMER, TSH3, CMP, BNP, CBC, [id number], PTT, PT #### [address] Platelet Morphology Normal Normal Normal [facility] Comment on above: Result Comment: PERF ORMED BY: [place] [address] PATHOLOGIST STATION INSPECTOR KELVIN HOLMAN M.D. Performed By: #### M G, HS TROP, DDIMER, TSH3, CMP, BNP, CBC, [id number], PTT, PT #### [address] Platelets (Bld) [#/Vol] 150 10*3/uL Normal 150-450 [facility] Comment on above: Performed By: #### M G, HS TROP, DDIMER, TSH3, CMP, BNP, CBC, [id number], PTT, PT #### [address] Poikilocytosis Slight Normal [facility] Comment on above: Performed By: #### M G, HS TROP, DDIMER, TSH3, CMP, BNP, CBC, [id number], PTT, PT #### [address] Polychromasia Slight Normal [facility] Comment on above: Performed By: #### M G, HS TROP, DDIMER, TSH3, CMP, BNP, CBC, [id number], PTT, PT #### [address] RBC (Bld) [#/Vol] 3.22 10*6/uL Low 3.90-5.60 [facility] Comment on above: Performed By: #### M G, HS TROP, DDIMER, TSH3, CMP, BNP, CBC, [id number], PTT, PT #### [address] Segmented neutrophils/100 WBC (Bld) 73 % High 50-70 [facility] Comment on above: Performed By: #### M G, HS TROP, DDIMER, TSH3, CMP, BNP, CBC, [id number], PTT, PT #### [address] WBC (Bld) [#/Vol] 4.7 10*3/uL Normal 4.1-10.5 [facility] Comment on above: Performed By: #### M G, HS TROP, DDIMER, TSH3, CMP, BNP, CBC, [id number], PTT, PT #### [address] White Blood Count 4.7 [CFU]/mL Normal 4.1-10.5 [facility] Comment on above: Performed By: #### M G, HS TROP, DDIMER, TSH3, CMP, BNP, CBC, [id number], PTT, PT #### [address] Basic Metabolic Panelon 08-0 -2024 Anion gap [Moles/Vol] 14.4 mmol/L Normal 6.0-15.0 [facility] e [facility] Comment on above: Performed By: #### M G, HS TROP, DDIMER, TSH3, CMP, BNP, CBC, [id number], PTT, PT #### [address] Calcium [Mass/Vol] 8.5 mg/dL Low 8.6-10.3 [facility] Comment on above: Performed By: #### M G, HS TROP, DDIMER, TSH3, CMP, BNP, CBC, [id number], PTT, PT #### [address] Chloride [Moles/Vol] 102 mmol/L Normal 98-107 [facility] Comment on above: Performed By: #### M G, HS TROP, DDIMER, TSH3, CMP, BNP, CBC, [id number], PTT, PT #### [address] CO2 [Moles/Vol] 20.7 mmol/L Low 21.0-31.0 [facility] Comment on above: Performed By: #### M G, HS TROP, DDIMER, TSH3, CMP, BNP, CBC, [id number], PTT, PT #### [address] Creatinine [Mass/Vol] 0.75 mg/dL Normal 0.70-1.30 [facility] Comment on above: Performed By: #### M G, HS TROP, DDIMER, TSH3, CMP, BNP, CBC, [id number], PTT, PT #### [address] Creatinine Clr Calc Pharmacy 97.53 Normal [facility] Comment on above: Result Comment: PERF ORMED BY: [place] [address] PATHOLOGIST STATION INSPECTOR KELVIN HOLMAN M.D. Performed By: #### M G, HS TROP, DDIMER, TSH3, CMP, BNP, CBC, [id number], PTT, PT #### [place] [address] [place] GFR/1.73 sq M.predicted MDRD (S/P/Bld) [Vol rate/Area] mL/min/{1.73_m2} Normal [facility] Comment on above: Performed By: #### M G, HS TROP, DDIMER, TSH3, CMP, BNP, CBC, [id number], PTT, PT #### [facility] [address] Glucose [Mass/Vol] 85 mg/dL Normal 70-100 [facility] Comment on above: Result Comment: [facility] Glucose Reference Range is dependent on time and content of last meal. Glucose of more than 200 mg/dL in a nonstressed, ambulatory subject supports the diagnosis of Diabetes Mellitus. ADA recommended reference range Performed By: #### M G, HS TROP, DDIMER, TSH3, CMP, BNP, CBC, [id number], PTT, PT #### [address] Potassium [Moles/Vol] 4.1 mmol/L Normal 3.5-5.1 [facility] Comment on above: Performed By: #### M G, HS TROP, DDIMER, TSH3, CMP, BNP, CBC, [id number], PTT, PT #### [facility] [address] Sodium [Moles/Vol] 133 mmol/L Low 136-145 [facility] Comment on above: Performed By: #### M G, HS TROP, DDIMER, TSH3, CMP, BNP, CBC, [id number], PTT, PT #### [facility] [address] [place] [address] [place] Urea nitrogen [Mass/Vol] 18 mg/dL Normal 7-25 [facility] Comment on above: Performed By: #### M G, HS TROP, DDIMER, TSH3, CMP, BNP, CBC, [id number], PTT, PT #### [facility] [address] [place] [address] [place] Scan and CBCon 01-17-2025 Acanthocytes Slight Normal [facility] Comment on above: Performed By: #### M G, HS TROP, DDIMER, TSH3, CMP, BNP, CBC, [id number], PTT, PT #### [address] Anisocytosis Ql (Bld) Slight Normal [facility] Comment on above: Performed By: #### M G, HS TROP, DDIMER, TSH3, CMP, BNP, CBC, [id number], PTT, PT #### [address] Basophils (Bld) [#/Vol] 0.0 10*3/uL Normal 0.0-0.2 [facility] Comment on above: Performed By: #### M G, HS TROP, DDIMER, TSH3, CMP, BNP, CBC, [id number], PTT, PT #### [address] Basophils/100 WBC (Bld) 0.4 % Normal . T cyril [facility] Comment on above: Performed By: #### M G, HS TROP, DDIMER, TSH3, CMP, BNP, CBC, [id number], PTT, PT #### [address] Eosinophils (Bld) [#/Vol] 0.1 10*3/uL Normal 0.0-0.45 [facility] Comment on above: Performed By: #### M G, HS TROP, DDIMER, TSH3, CMP, BNP, CBC, [id number], PTT, PT #### [address] Eosinophils/100 WBC (Bld) 1.4 % Normal . [facility] Comment on above: Performed By: #### M G, HS TROP, DDIMER, TSH3, CMP, BNP, CBC, [id number], PTT, PT #### [address] Erythrocyte distribution width (RBC) [Ratio] 16.1 % High 12.0-14.8 [facility] Comment on above: Performed By: #### M G, HS TROP, DDIMER, TSH3, CMP, BNP, CBC, [id number], PTT, PT #### [address] Hematocrit (Bld) [Volume fraction] 28.7 % Low 38.8-50.0 [facility] Comment on above: Performed By: #### M G, HS TROP, DDIMER, TSH3, CMP, BNP, CBC, [id number], PTT, PT #### [address] Hemoglobin (Bld) [Mass/Vol] 9.3 g/dL Low 13.0-17.0 [facility] Comment on above: Performed By: #### M G, HS TROP, DDIMER, TSH3, CMP, BNP, CBC, [id number], PTT, PT #### [address] Lymphocytes (Bld) [#/Vol] 0.9 10*3/uL Low 1.00-4.8 [facility] Comment on above: Performed By: #### M G, HS TROP, DDIMER, TSH3, CMP, BNP, CBC, [id number], PTT, PT #### [address] Lymphocytes/100 WBC (Bld) 11.3 % Normal . [facility] Comment on above: Performed By: #### M G, HS TROP, DDIMER, TSH3, CMP, BNP, CBC, [id number], PTT, PT #### [address] MCH (RBC) [Entitic mass] 26.2 pg Low 27.5-35.2 [facility] Comment on above: Performed By: #### M G, HS TROP, DDIMER, TSH3, CMP, BNP, CBC, [id number], PTT, PT #### [address] MCV (RBC) [Entitic vol] 80.8 fL Low 83.5-101 T he [facility] Comment on above: Performed By: #### M G, HS TROP, DDIMER, TSH3, CMP, BNP, CBC, [id number], PTT, PT #### [address] Mean Corpuscular HGB Conc 32.5 g/dL Normal 32.5-35.6 [facility] Comment on above: Performed By: #### M G, HS TROP, DDIMER, TSH3, CMP, BNP, CBC, [id number], PTT, PT #### [address] Microcytosis Slight Normal [facility] Comment on above: Performed By: #### M G, HS TROP, DDIMER, TSH3, CMP, BNP, CBC, [id number], PTT, PT #### [address] Monocytes (Bld) [#/Vol] 0.0 10*3/uL Normal 0.0-0.8 [facility] Comment on above: Performed By: #### M G, HS TROP, DDIMER, TSH3, CMP, BNP, CBC, [id number], PTT, PT #### [address] Monocytes/100 WBC (Bld) 0.6 % Normal . T he [facility] Comment on above: Performed By: #### M G, HS TROP, DDIMER, TSH3, CMP, BNP, CBC, [id number], PTT, PT #### [address] Neutrophils (Bld) [#/Vol] 6.5 10*3/uL Normal 1.8-7.7 [facility] Comment on above: Performed By: #### M G, HS TROP, DDIMER, TSH3, CMP, BNP, CBC, [id number], PTT, PT #### [address] Neutrophils/100 WBC (Bld) 86.3 % Normal . [facility] Comment on above: Performed By: #### M G, HS TROP, DDIMER, TSH3, CMP, BNP, CBC, [id number], PTT, PT #### [address] NRBC% 0.1 /100{WBC} Normal 0-0.5 [facility] Comment on above: Performed By: #### M G, HS TROP, DDIMER, TSH3, CMP, BNP, CBC, [id number], PTT, PT #### [address] Ovalocytes Slight Normal [facility] Comment on above: Performed By: #### M G, HS TROP, DDIMER, TSH3, CMP, BNP, CBC, [id number], PTT, PT #### [address] Platelet Estimate Normal Normal Normal [facility] Comment on above: Performed By: #### M G, HS TROP, DDIMER, TSH3, CMP, BNP, CBC, [id number], PTT, PT #### [address] Platelet mean volume (Bld) [Entitic vol] 7.6 fL Normal 6.6-10.1 [facility] Comment on above: Performed By: #### M G, HS TROP, DDIMER, TSH3, CMP, BNP, CBC, [id number], PTT, PT #### [address] Platelet Morphology Normal Normal Normal [facility] Comment on above: Result Comment: PERF ORMED BY: [place] [address] PATHOLOGIST STATION INSPECTOR KELVIN HOLMAN M.D. Performed By: #### M G, HS TROP, DDIMER, TSH3, CMP, BNP, CBC, [id number], PTT, PT #### [address] Platelets (Bld) [#/Vol] 173 10*3/uL Normal 150-450 [facility] Comment on above: Performed By: #### M G, HS TROP, DDIMER, TSH3, CMP, BNP, CBC, [id number], PTT, PT #### [address] Poikilocytosis Slight Normal [facility] Comment on above: Performed By: #### M G, HS TROP, DDIMER, TSH3, CMP, BNP, CBC, [id number], PTT, PT #### [address] Polychromasia Slight Normal [facility] Comment on above: Performed By: #### M G, HS TROP, DDIMER, TSH3, CMP, BNP, CBC, [id number], PTT, PT #### [address] RBC (Bld) [#/Vol] 3.55 10*6/uL Low 3.90-5.60 [facility] Comment on above: Performed By: #### M G, HS TROP, DDIMER, TSH3, CMP, BNP, CBC, [id number], PTT, PT #### [address] Schistocytes Slight Normal [facility] Comment on above: Performed By: #### M G, HS TROP, DDIMER, TSH3, CMP, BNP, CBC, [id number], PTT, PT #### [address] WBC (Bld) [#/Vol] 7.6 10*3/uL Normal 4.1-10.5 [facility] Comment on above: Performed By: #### M G, HS TROP, DDIMER, TSH3, CMP, BNP, CBC, [id number], PTT, PT #### [address] White Blood Count 7.6 [CFU]/mL Normal 4.1-10.5 [facility] Comment on above: Performed By: #### M G, HS TROP, DDIMER, TSH3, CMP, BNP, CBC, [id number], PTT, PT #### [address] Basic Metabolic Panelon 08-0 -2024 Anion gap [Moles/Vol] 13.5 mmol/L Normal 6.0-15.0 [facility] e [facility] Comment on above: Performed By: #### M G, HS TROP, DDIMER, TSH3, CMP, BNP, CBC, [id number], PTT, PT #### [address] Calcium [Mass/Vol] 8.1 mg/dL Low 8.6-10.3 [facility] Comment on above: Performed By: #### M G, HS TROP, DDIMER, TSH3, CMP, BNP, CBC, [id number], PTT, PT #### [address] Chloride [Moles/Vol] 102 mmol/L Normal 98-107 [facility] Comment on above: Performed By: #### M G, HS TROP, DDIMER, TSH3, CMP, BNP, CBC, [id number], PTT, PT #### [address] CO2 [Moles/Vol] 21.5 mmol/L Normal 21.0-31.0 [facility] Comment on above: Performed By: #### M G, HS TROP, DDIMER, TSH3, CMP, BNP, CBC, [id number], PTT, PT #### [address] Creatinine [Mass/Vol] 0.74 mg/dL Normal 0.70-1.30 [facility] Comment on above: Performed By: #### M G, HS TROP, DDIMER, TSH3, CMP, BNP, CBC, [id number], PTT, PT #### [address] Creatinine Clr Calc Pharmacy 106.94 Normal [facility] Comment on above: Performed By: #### M G, HS TROP, DDIMER, TSH3, CMP, BNP, CBC, [id number], PTT, PT #### [facility] [address] [place] [address] [place] GFR/1.73 sq M.predicted MDRD (S/P/Bld) [Vol rate/Area] mL/min/{1.73_m2} Normal [facility] Comment on above: Performed By: #### M G, HS TROP, DDIMER, TSH3, CMP, BNP, CBC, [id number], PTT, PT #### [address] Glucose [Mass/Vol] 90 mg/dL Normal 70-100 [facility] Comment on above: Result Comment: [facility] Glucose Reference Range is dependent on time and content of last meal. Glucose of more than 200 mg/dL in a nonstressed, ambulatory subject supports the diagnosis of Diabetes Mellitus. ADA recommended reference range Performed By: #### M G, HS TROP, DDIMER, TSH3, CMP, BNP, CBC, [id number], PTT, PT #### [address] Potassium [Moles/Vol] 4.0 mmol/L Normal 3.5-5.1 [facility] Comment on above: Performed By: #### M G, HS TROP, DDIMER, TSH3, CMP, BNP, CBC, [id number], PTT, PT #### [address] Sodium [Moles/Vol] 133 mmol/L Low 136-145 [facility] Comment on above: Performed By: #### M G, HS TROP, DDIMER, TSH3, CMP, BNP, CBC, [id number], PTT, PT #### [place] [address] [place] Urea nitrogen [Mass/Vol] 20 mg/dL Normal 7-25 [facility] Comment on above: Performed By: #### M G, HS TROP, DDIMER, TSH3, CMP, BNP, CBC, [id number], PTT, PT #### [address] Complete Blood Count Auto Di ffon 01-16-2025 Basophils (Bld) [#/Vol] 0.1 10*3/uL Normal 0.0-0.2 [facility] Comment on above: Result Comment: PERF ORMED BY: [place] [address] PATHOLOGIST STATION INSPECTOR KELVIN HOLMAN M.D. Performed By: #### M G, HS TROP, DDIMER, TSH3, CMP, BNP, CBC, [id number], PTT, PT #### [address] Basophils/100 WBC (Bld) 0.8 % Normal . [facility] Comment on above: Performed By: #### M G, HS TROP, DDIMER, TSH3, CMP, BNP, CBC, [id number], PTT, PT #### [address] Eosinophils (Bld) [#/Vol] 0.1 10*3/uL Normal 0.0-0.45 [facility] Comment on above: Performed By: #### M G, HS TROP, DDIMER, TSH3, CMP, BNP, CBC, [id number], PTT, PT #### [address] Eosinophils/100 WBC (Bld) 1.0 % Normal . [facility] Comment on above: Performed By: #### M G, HS TROP, DDIMER, TSH3, CMP, BNP, CBC, [id number], PTT, PT #### [address] Erythrocyte distribution width (RBC) [Ratio] 16.2 % High 12.0-14.8 [facility] Comment on above: Performed By: #### M G, HS TROP, DDIMER, TSH3, CMP, BNP, CBC, [id number], PTT, PT #### [address] Hematocrit (Bld) [Volume fraction] 26.1 % Low 38.8-50.0 [facility] Comment on above: Performed By: #### M G, HS TROP, DDIMER, TSH3, CMP, BNP, CBC, [id number], PTT, PT #### [address] Hemoglobin (Bld) [Mass/Vol] 8.6 g/dL Low 13.0-17.0 [facility] Comment on above: Performed By: #### M G, HS TROP, DDIMER, TSH3, CMP, BNP, CBC, [id number], PTT, PT #### [address] Lymphocytes (Bld) [#/Vol] 0.8 10*3/uL Low 1.00-4.8 [facility] Comment on above: Performed By: #### M G, HS TROP, DDIMER, TSH3, CMP, BNP, CBC, [id number], PTT, PT #### [address] Lymphocytes/100 WBC (Bld) 7.9 % Normal . [facility] Comment on above: Performed By: #### M G, HS TROP, DDIMER, TSH3, CMP, BNP, CBC, [id number], PTT, PT #### [address] MCH (RBC) [Entitic mass] 26.4 pg Low 27.5-35.2 [facility] Comment on above: Performed By: #### M G, HS TROP, DDIMER, TSH3, CMP, BNP, CBC, [id number], PTT, PT #### [address] MCV (RBC) [Entitic vol] 80.1 fL Low 83.5-101 T [facility] Comment on above: Performed By: #### M G, HS TROP, DDIMER, TSH3, CMP, BNP, CBC, [id number], PTT, PT #### [address] Mean Corpuscular HGB Conc 33.0 g/dL Normal 32.5-35.6 [facility] Comment on above: Performed By: #### M G, HS TROP, DDIMER, TSH3, CMP, BNP, CBC, [id number], PTT, PT #### [address] Monocytes (Bld) [#/Vol] 0.0 10*3/uL Normal 0.0-0.8 [facility] Comment on above: Performed By: #### M G, HS TROP, DDIMER, TSH3, CMP, BNP, CBC, [id number], PTT, PT #### [address] Monocytes/100 WBC (Bld) 0.4 % Normal . T [facility] Comment on above: Performed By: #### M G, HS TROP, DDIMER, TSH3, CMP, BNP, CBC, [id number], PTT, PT #### [address] Neutrophils (Bld) [#/Vol] 9.4 10*3/uL High 1.8-7.7 [facility] Comment on above: Performed By: #### M G, HS TROP, DDIMER, TSH3, CMP, BNP, CBC, [id number], PTT, PT #### [address] Neutrophils/100 WBC (Bld) 89.9 % Normal . [facility] Comment on above: Performed By: #### M G, HS TROP, DDIMER, TSH3, CMP, BNP, CBC, [id number], PTT, PT #### [address] NRBC% 0.1 /100{WBC} Normal 0-0.5 [facility] Comment on above: Performed By: #### M G, HS TROP, DDIMER, TSH3, CMP, BNP, CBC, [id number], PTT, PT #### [address] Platelet mean volume (Bld) [Entitic vol] 7.5 fL Normal 6.6-10.1 [facility] Comment on above: Performed By: #### M G, HS TROP, DDIMER, TSH3, CMP, BNP, CBC, [id number], PTT, PT #### [address] Platelets (Bld) [#/Vol] 185 10*3/uL Normal 150-450 [facility] Comment on above: Performed By: #### M G, HS TROP, DDIMER, TSH3, CMP, BNP, CBC, [id number], PTT, PT #### [address] RBC (Bld) [#/Vol] 3.26 10*6/uL Low 3.90-5.60 [facility] Comment on above: Performed By: #### M G, HS TROP, DDIMER, TSH3, CMP, BNP, CBC, [id number], PTT, PT #### [address] WBC (Bld) [#/Vol] 10.4 10*3/uL Normal 4.1-10.5 [facility] Comment on above: Performed By: #### M G, HS TROP, DDIMER, TSH3, CMP, BNP, CBC, [id number], PTT, PT #### [address] White Blood Count 10.4 [CFU]/mL Normal 4.1-10.5 [facility] Comment on above: Performed By: #### M G, HS TROP, DDIMER, TSH3, CMP, BNP, CBC, [id number], PTT, PT #### [address] [facility] echo transthoracicon [facility] echo transthoracic [facility] [place] [address] Echocardiogram Signed Patient: Jatin Koch II MR#: [id number] : 1960 Acct:[id number] Age/Sex: 64 / M ADM Date: 01/15/25 Loc: Room: 3I4643-6 Type: ADM IN Attending Dr: Hayes Olivarez DO Ordering Provider: Librado Sarkar MD Date of Service: 01/16/2511/05/1046 [facility] echo transthoracic: afib vs SR Copies to: MD Librado Lim MD Height: 68 in Weight: 161 lb Performed By: RENA August BSA: 1.9 m2 BP: 97/55 mmHg HR: 96 Reason For Study: afib vs SR History: pacemaker, heart block, lung cancer Interpretation Summary Ejection Fraction = 60-65%. The left ventricular size and thickness are normal. Septal motion is consistent with conduction abnormality. A variety of Doppler measurements indicate impaired left ventricular relaxation, which is associated with grade I/IV or mild diastolic dysfunction. Mild valvular aortic stenosis. There is no comparison study available. Procedure/Quality: A two-dimensional transthoracic echocardiogram with color flow, Doppler and injection of contrast agent Definity was performed. The study was technically suboptimal in quality due to poor acoustic windows . Left Ventricle: The left ventricular size and thickness are normal. Ejection Fraction = 60-65%. A variety of Doppler measurements indicate impaired left ventricular relaxation, which is associated with grade I/IV or mild diastolic dysfunction. Septal motion is consistent with conduction abnormality. Left Atrium: The left atrium appears normal in size. Right Atrium: The right atrium appears normal in size. Right Ventricle: The right ventricle is normal in size and function. There is a pacemaker lead in the right ventricle. Aortic Valve: The aortic valve is moderately calcified. Mild valvular aortic stenosis. No aortic regurgitation is present. Mitral Valve: There is moderate mitral annular calcification. No significant mitral valve stenosis. There is no mitral regurgitation noted. Tricuspid Valve: The tricuspid valve is normal in structure. No tricuspid regurgitation. Pulmonic Valve: The pulmonic valve is not well visualized. No significant pulmonic regurgitation. Arteries: The aortic root is normal size. Pericardium/Pleura: No pericardial effusion seen. IVC/Hepatic Veins: The inferior vena cava is normal in size, with a normal collapsibility index. Measurements with Normals IVSd: 1.2 cm (0.7-1.1 cm)LVIDd: 3.8 cm (3.7-5.4 cm) LVPWd: 1.2 cm (0.7-1.1 cm)LVIDs: 2.5 cm (2.3-3.6 cm) LA dimension: 2.8 cm(2.3-4.0 cm)Ao root diam: 3.2 cm(2.0-3.6 cm) Doppler with Normals LV V1 max: 70.5 cm/sec (0.7-1.7m/s)MV E max abel: 77.8 cm/sec(0.8-1.3m/s) MV A max abel: 98.1 cm/sec(0.0-0.0m/s) MV E/A: 0.79 (<1.5) MMode/2D Measurements Calculations RV S Abel: FS: 35.2 % Ao root area: LVOT diam: 2.0 cm 9.4 cm/sec EDV(Teich): 8.0 cm2 LVOT area: 3.1 cm2 63.2 ml ESV(Teich): 21.9 ml EF(Teich): 65.3 % __ LVLd ap4: 7.7 cm SV(MOD-sp4): LAV(MOD-sp4): LA A2 area: 11.2 cm2 EDV(MOD-sp4): 65.3 ml 18.6 ml 102.0 ml LAV(MOD-sp2): LA A4 area: 10.4 cm2 LVLs ap4: 7.3 cm 26.8 ml LA length (vol): ESV(MOD-sp4): 4.4 cm 36.7 ml LA vol: 22.3 ml EF(MOD-sp4): 64.0 % LA vol index: 12.0 ml/m2 Doppler Measurements Calculations MV dec time: 0.05 secMV V2 max: E/E' lat: MV dec slope: 91.3 cm/sec 14.9 MV max P.3 mmHg E/E' med: 1637 cm/sec2 MV V2 mean: 18.8 62.8 cm/sec MV mean P.8 mmHg MV V2 VTI: 15.1 cm MVA(VTI): 3.0 cm2 __ Ao V2 max: LV V1 max P.2 cm/sec 2.0 mmHg Ao max P.4 mmHg LV V1 mean PG: Ao mean P.5 mmHg0.97 mmHg Ao V2 mean: LV V1 mean: 201.2 cm/sec 45.9 cm/sec Ao V2 VTI: 42.4 cm LV V1 VTI: 14.3 cm JERICHO(I,D): 1.1 cm2 JERICHO(V,D): 0.88 cm2 Transcribed By: CRIS Performed At: 01/16/25 1253 Signed By: Elma Jackson MD 01/16/25 1526 Normal [facility] Lipid Panelon 01-16-2025 Cholesterol [Mass/Vol] 123 mg/dL Low 140-200 [facility] Comment on above: Result Comment: Chol less than 200 mg/dl low risk Chol 201-239 mg/dl borderline risk Chol 240 mg/dl and greater high risk Performed By: #### M G, HS TROP, DDIMER, TSH3, CMP, BNP, CBC, [id number], PTT, PT #### [facility] [address] Cholesterol in HDL [Mass/Vol] 30 mg/dL Normal 23-92 [facility] Comment on above: Result Comment: HDL CHOL ATP-III CLASSIFICATION Cardiovascular Risk HDL > or equal to 60 mg/dL LOW HDL < 40 mg/dL HIGH Performed By: #### M G, HS TROP, DDIMER, TSH3, CMP, BNP, CBC, [id number], PTT, PT #### [facility] [address] [place] [id number] [facility] Cholesterol.total/Kareen sterol in HDL [Mass ratio] 4.1 {ratio} Normal <5.0 [facility] Comment on above: Result Comment: PERF ORMED BY: [place] [address] PATHOLOGIST STATION INSPECTOR KELVIN HOLMAN M.D. Performed By: #### M G, HS TROP, DDIMER, TSH3, CMP, BNP, CBC, [id number], PTT, PT #### [facility] [address] LDL Cholesterol,Calculated 76 mg/dL Normal 0-100 [facility] Comment on above: Result Comment: LDL ATP III CLASSIFICATION LDL less than 100 mg/dL Optimal LDL 100-129 mg/dL Near or above optimal LDL 130-159 mg/dL Borderline high LDL 160-189 mg/dL High LDL greater than 189 mg/dL Very high Performed By: #### M G, HS TROP, DDIMER, TSH3, CMP, BNP, CBC, [id number], PTT, PT #### [address] Triglyceride w/Reflex 87 mg/dL Normal 0-149 [facility] Comment on above: Result Comment: TRIG ATP III CLASSIFICATION TRIG less than 150 mg/dL Normal TRIG 150-199 mg/dL Borderline high TRIG 200-500 mg/dL High TRIG greater than 500 mg/dL Very high Standard traceable to the Center for Disease Conrtrol and Prevention (CDC) test method. Performed By: #### M G, HS TROP, DDIMER, TSH3, CMP, BNP, CBC, [id number], PTT, PT #### [address] VLDL CHOLESTEROL 17 mg/dL Normal [facility] Comment on above: Performed By: #### M G, HS TROP, DDIMER, TSH3, CMP, BNP, CBC, [id number], PTT, PT #### [facility] [address] Magnesiumon 01-16-2025 Magnesium [Mass/Vol] 1.7 mg/dL Low 1.9-2.7 [facility] Comment on above: Performed By: #### M G, HS TROP, DDIMER, TSH3, CMP, BNP, CBC, [id number], PTT, PT #### [address] Anisocytosis [Presence] in B lood by Light microscopyOrdered By: Angelica Lawler on 01-15-2025 Anisocytosis Ql (Bld) Slight Normal [facility] Comment on above: Order Comment: PLATE LET CLUMPS/ NOTIFIED ARTIE Performed By: #### M G, HS TROP, DDIMER, TSH3, CMP, BNP, CBC, [id number], PTT, PT #### [address] BNP ser/plasOrdered By: Mikel Lawler on 01-15-2025 Natriuretic peptide B (Bld) [Mass/Vol] 50.0 pg/mL Normal 5-100 [facility] Comment on above: Result Comment: PERF ORMED BY: [place] [address] PATHOLOGIST STATION INSPECTOR KELVIN HOLMAN M.D. Performed By: #### M G, HS TROP, DDIMER, TSH3, CMP, BNP, CBC, [id number], PTT, PT #### [address] Basic Metabolic Panelon 08-0 Anion gap [Moles/Vol] Not performed Normal 6.0-15.0 [facility] Comment on above: Performed By: #### M G, HS TROP, DDIMER, TSH3, CMP, BNP, CBC, [id number], PTT, PT #### [address] Creatinine Clr Calc Pharmacy 83.35 Normal [facility] Comment on above: Performed By: #### M G, HS TROP, DDIMER, TSH3, CMP, BNP, CBC, [id number], PTT, PT #### [address] GFR/1.73 sq M.predicted MDRD (S/P/Bld) [Vol rate/Area] mL/min/{1.73_m2} Normal [facility] Comment on above: Performed By: #### M G, HS TROP, DDIMER, TSH3, CMP, BNP, CBC, [id number], PTT, PT #### [facility] [address] Potassium Normal 3.5-5.1 [facility] Comment on above: Result Comment: Spec imen hemolyzed, redraw requested Performed By: #### M G, HS TROP, DDIMER, TSH3, CMP, BNP, CBC, [id number], PTT, PT #### [facility] [address] Basophils [#/volume] in Bloo d by Automated countOrdered By: Angelica Lawler on 01-15-2025 Basophils (Bld) [#/Vol] 0.1 10*3/uL Normal 0.0-0.2 [facility] Comment on above: Order Comment: PLATE LET CLUMPS/ NOTIFIED ARTIE Performed By: #### M G, HS TROP, DDIMER, TSH3, CMP, BNP, CBC, [id number], PTT, PT #### [place] [address] [place] Basophils/100 leukocytes in Blood by Automated countOrdered By: Angelica Lawler on 01-15-2025 Basophils/100 WBC (Bld) 0.3 % Normal . [facility] Comment on above: Order Comment: PLATE LET CLUMPS/ NOTIFIED ARTIE Performed By: #### M G, HS TROP, DDIMER, TSH3, CMP, BNP, CBC, [id number], PTT, PT #### [address] Blood Cultureon 01-15-2025 Bacteria identified Cx Nom (Bld) NO GROWTH 5 DAYS PERFORMED BY: [place] [address] PATHOLOGIST STATION INSPECTOR KELVIN HOLMAN M.D. Normal [facility] Comment on above: Performed By: #### M G, HS TROP, DDIMER, TSH3, CMP, BNP, CBC, [id number], PTT, PT #### [place] [id number] [facility] Bacteria identified Cx Nom (Bld) NO GROWTH 5 DAYS PERFORMED BY: [address] [place] [address] PATHOLOGIST STATION INSPECTOR KELVIN HOLMAN M.D. Normal [facility] Comment on above: Performed By: #### M G, HS TROP, DDIMER, TSH3, CMP, BNP, CBC, [id number], PTT, PT #### [facility] [address] CBC W Auto Differential pane l (Bld)on 01-15-2025 Anisocytosis Ql (Bld) Present Normal [facility] Comment on above: Order Comment: Speci men Type: BLOOD SPECIMENOrdering Facility: [facility] Address: [address] [place] [address] Performed By: #### 5 7021-8 ####[facility] LABCLIA [id number] [address] LABCLIA [id number] [place] [address] [place] Basophils (Bld) [#/Vol] 0.00 10*3/uL Normal <0.11 [facility] Comment on above: Order Comment: Speci men Type: BLOOD SPECIMENOrdering Facility: [facility] Address: [address] [place] [address] Performed By: #### 5 7021-8 ####[facility] LABCLIA [id number] [address] LABCLIA [id number] [place] [address] [place] Basophils/100 WBC (Bld) 0.0 % Normal [facility] Comment on above: Order Comment: Speci men Type: BLOOD SPECIMENOrdering Facility: [facility] Address: [address] [place] [address] Performed By: #### 5 7021-8 ####[facility] LABCLIA [id number] [address] LABCLIA [id number] [place] [address] [place] Differential cell count method Nom (Bld) Manual Normal [facility] Comment on above: Order Comment: Speci men Type: BLOOD SPECIMENOrdering Facility: [facility] Address: [address] [place] [address] Performed By: #### 5 7021-8 ####[facility] LABCLIA [id number] [address] LABCLIA [id number] [place] [address] [place] Eosinophils (Bld) [#/Vol] 0.19 10*3/uL Normal <0.46 [facility] Comment on above: Order Comment: Speci men Type: BLOOD SPECIMENOrdering Facility: [facility] Address: [address] [place] [address] Performed By: #### 5 7021-8 ####[facility] LABCLIA [id number] [address] LABCLIA [id number] [place] [address] [place] Eosinophils/100 WBC (Bld) 0.9 % Normal [facility] Comment on above: Order Comment: Speci men Type: BLOOD SPECIMENOrdering Facility: [facility] Address: [address] [place] [address] Performed By: #### 5 7021-8 ####[facility] LABCLIA [id number] [address] LABCLIA [id number] [place] [address] [place] Erythrocyte distribution width (RBC) [Ratio] 15.2 % High 11.5-15.0 [facility] Comment on above: Order Comment: Speci men Type: BLOOD SPECIMENOrdering Facility: [facility] Address: [address] [place] [address] Performed By: #### 5 7021-8 ####[facility] LABCLIA [id number] [place] [id number] LABCLIA [id number] [place] [id number] [place] Hematocrit (Bld) [Volume fraction] 33.7 % Low 39.0-51.0 [facility] Comment on above: Order Comment: Speci men Type: BLOOD SPECIMENOrdering Facility: [facility] Address: [address] [place] [address] Performed By: #### 5 7021-8 ####[facility] LABCLIA [id number] [address] LABCLIA [id number] [place] [address] [place] Hemoglobin (Bld) [Mass/Vol] 10.5 g/dL Low 13.0-17.0 [facility] Comment on above: Order Comment: Speci men Type: BLOOD SPECIMENOrdering Facility: [facility] Address: [address] [place] [address] Performed By: #### 5 7021-8 ####[facility] LABCLIA [id number] [address] LABCLIA [id number] [place] [address] [place] Lymphocytes (Bld) [#/Vol] 1.83 10*3/uL Normal 1.00-4.00 [facility] Comment on above: Order Comment: Speci men Type: BLOOD SPECIMENOrdering Facility: [facility] Address: [address] [place] [address] Performed By: #### 5 7021-8 ####[facility] LABCLIA [id number] [address] LABCLIA [id number] [place] [id number] [place] Lymphocytes/100 WBC (Bld) 8.7 % Normal [facility] Comment on above: Order Comment: Speci men Type: BLOOD SPECIMENOrdering Facility: [facility] Address: [address] [place] [address] Performed By: #### 5 7021-8 ####[facility] LABCLIA [id number] [address] LABCLIA [id number] [place] [address] [place] MCH (RBC) [Entitic mass] 26.0 pg Normal 26.0-34.0 [facility] Comment on above: Order Comment: Speci men Type: BLOOD SPECIMENOrdering Facility: [facility] Address: [address] [place] [address] Performed By: #### 5 7021-8 ####[facility] LABCLIA [id number] [address] LABCLIA [id number] [place] [address] [place] MCHC (RBC) [Mass/Vol] 31.2 g/dL Normal 30.5-36.0 [facility] Comment on above: Order Comment: Speci men Type: BLOOD SPECIMENOrdering Facility: [facility] Address: [address] [place] [address] Performed By: #### 5 7021-8 ####[facility] LABCLIA [id number] [address] LABCLIA [id number] [place] [address] [place] MCV (RBC) [Entitic vol] 83.4 fL Normal 80.0-100.0 [facility] Comment on above: Order Comment: Speci men Type: BLOOD SPECIMENOrdering Facility: [facility] Address: [address] [place] [address] Performed By: #### 5 7021-8 ####[facility] LABCLIA [id number] [place] [id number] LABCLIA [id number] [place] [id number] [place] Monocytes (Bld) [#/Vol] 0.00 10*3/uL Normal <0.87 [facility] Comment on above: Order Comment: Speci men Type: BLOOD SPECIMENOrdering Facility: [facility] Address: [address] [place] [address] Performed By: #### 5 7021-8 ####[facility] LABCLIA [id number] [address] LABCLIA [id number] [place] [address] [place] Monocytes/100 WBC (Bld) 0.0 % Normal [facility] Comment on above: Order Comment: Speci men Type: BLOOD SPECIMENOrdering Facility: [facility] Address: [address] [place] [address] Performed By: #### 5 7021-8 ####[facility] LABCLIA [id number] [address] LABCLIA [id number] [place] [id number] [place] Neutrophils (Bld) [#/Vol] 19.02 10*3/uL High 1.45-7.50 [facility] Comment on above: Order Comment: Speci men Type: BLOOD SPECIMENOrdering Facility: [facility] Address: [address] [place] [address] Performed By: #### 5 7021-8 ####[facility] LABCLIA [id number] [address] LABCLIA [id number] [facility] [place] [id number] [place] Neutrophils/100 WBC (Bld) 90.4 % Normal [facility] Comment on above: Order Comment: Speci men Type: BLOOD SPECIMENOrdering Facility: [facility] Address: [address] [place] [address] Performed By: #### 5 7021-8 ####[facility] LABCLIA [id number] [address] LABCLIA [id number] [place] [address] [place] Nucleated RBC (Bld) [#/Vol] 0.19 10*3/uL High <0.01 [facility] Comment on above: Order Comment: Speci men Type: BLOOD SPECIMENOrdering Facility: [facility] Address: [address] [place] [address] Performed By: #### 5 7021-8 ####[facility] LABCLIA [id number] [address] LABCLIA [id number] [place] [address] [place] Nucleated RBC/100 WBC (Bld) [Ratio] 0.9 /100 WBC Normal [facility] Comment on above: Order Comment: Speci men Type: BLOOD SPECIMENOrdering Facility: [facility] Address: [address] [place] [address] Performed By: #### 5 7021-8 ####[facility] LABCLIA [id number] [address] LABCLIA [id number] [place] [address] [place] Ovalocytes LM Ql (Bld) Few Normal [facility] Comment on above: Order Comment: Speci men Type: BLOOD SPECIMENOrdering Facility: [facility] Address: [address] [place] [address] Performed By: #### 5 7021-8 ####[facility] LABCLIA [id number] [place] [id number] LABCLIA [id number] [address] [address] [place] Platelet mean volume (Bld) [Entitic vol] 9.1 fL Normal 9.0-12.7 [facility] Comment on above: Order Comment: Speci men Type: BLOOD SPECIMENOrdering Facility: [facility] Address: [address] [place] [address] Performed By: #### 5 7021-8 ####RADHATROY [facility] LABCLIA [id number] [place] [id number] LABCLIA [id number] [place] [address] [place] Platelets (Bld) [#/Vol] 286 10*3/uL Normal 150-400 [facility] Comment on above: Order Comment: Speci men Type: BLOOD SPECIMENOrdering Facility: [facility] Address: [address] [place] [address] Performed By: #### 5 7021-8 ####[facility] LABCLIA [id number] [place] [id number] LABCLIA [id number] [place] [address] [place] Platelets Estimate (Bld) [#/Vol] Adequate Normal [facility] Comment on above: Order Comment: Speci men Type: BLOOD SPECIMENOrdering Facility: [facility] Address: [address] [place] [address] Performed By: #### 5 7021-8 ####[facility] LABCLIA [id number] [place] [id number] LABCLIA [id number] [place] [address] [place] RBC (Bld) [#/Vol] 4.04 10*6/uL Low 4.20-6.00 [facility] Comment on above: Order Comment: Speci men Type: BLOOD SPECIMENOrdering Facility: [facility] Address: [address] [place] [address] Performed By: #### 5 7021-8 ####KAYLA [facility] LABCLIA [id number] [place] [id number] LABCLIA [id number] [place] [address] [place] RBC FRAGMENTS Few Abnormal None Seen [facility] Comment on above: Order Comment: Speci men Type: BLOOD SPECIMENOrdering Facility: [facility] Address: [address] [place] [address] Performed By: #### 5 7021-8 ####[facility] LABCLIA [id number] [address] LABCLIA [id number] [place] [address] [place] RED CELL MORPH Reviewed: see result s of individual morphologies Normal [facility] Comment on above: Order Comment: Speci men Type: BLOOD SPECIMENOrdering Facility: [facility] Address: [address] [place] [address] Performed By: #### 5 7021-8 ####[facility] LABCLIA [id number] [address] LABCLIA [id number] [place] [address] [place] WBC (Bld) [#/Vol] 21.04 10*3/uL High 3.70-11.00 [facility] Comment on above: Order Comment: Speci men Type: BLOOD SPECIMENOrdering Facility: [facility] Address: [address] [place] [address] Performed By: #### 5 7021-8 ####[facility] LABCLIA [id number] [address] LABCLIA [id number] [place] [id number] [place] CNOVSPon 01-15-2025 CNOVSP Normal [facility] CNPNon 01-15-2025 CNPN Normal [facility] CT angio chest PE protocolon 01-15-2025 CT angio chest PE protocol [facility] [address] [place] [address] CT Scan Report Signed Patient: Jatin Koch II MR#: [id number] : 1960 Acct:[id number] Age/Sex: 64 / M ADM Date: 01/15/25 Loc: ER Room: Type: [facility] ER Attending Dr: Copies to: Angelica Lawler DO Ordering Provider: Angelica Lawler DO Date of Service: 01/15/25 CT/CT angio chest PE protocol: lung cancer, L side pain sudden, tachy CT angio chest PE protocol 01/15/2025 11:16 AM SIGN AND SYMPTOMS: Left weakness, history of lung cancer CONTRAST: 75 mL of intravenous Isovue-370 TECHNIQUE: Multidetector CT axial slices of the chest were obtained with IV contrast. Multiplanar and 3-D reformats were performed and viewed on a separate workstation and reviewed to further define anatomy and possible pathology. CT was performed with one or more of the following dose reduction techniques: Automated exposure control, adjustment of the mA and/or kV according to patient size, or use of iterative reconstruction technique. COMPARISON: 01/02/2025. FINDINGS: Lower neck: Thyroid gland within normal limits, no supraclavicle adenopathy. Vessels: Atherosclerotic changes are present in the thoracic aorta and coronary arteries. There is no evidence of pulmonary embolism. Mediastinum and Jere: There is masslike soft tissue prominence in the subcarinal region and into the jere right greater than left encasing the right mainstem bronchus similar to the prior exam. This measures at least 3.7 x 7.7 cm in axial dimension. Heart: Normal size. No pericardial effusion. Airways: There is narrowing of the right mainstem bronchus with occlusion of the segmental bronchus to the right lower lobe secondary to the mediastinal and right hilar mass similar to the prior exam. Lungs: There is postobstructive consolidation/pneumonia involving the entirety of the right lower lobe with areas of groundglass attenuation is noted in the right middle lobe similar to the prior exam. Pleura: Within normal limits. Chest Wall: Within normal limits. Upper Abdomen: Within normal limits. Bones: There is a 1 cm area of lucency within the T5 vertebral body posteriorly near the inferior endplate similar to the prior study. Degenerative changes are noted in the shoulders. There are partially calcified central disc protrusions at T7-T8, T8-T9, T9-T10, and T11-T12 contributing to spinal canal stenosis greatest at T11-T12. This is similar to the prior exam. CT/CT angio chest PE protocol IMPRESSION: There is no evidence of pulmonary embolism. There is masslike soft tissue prominence in the subcarinal region and into the jere right greater than left encasing the right mainstem bronchus similar to the prior exam. This measures at least 3.7 x 7.7 cm in axial dimension. There is narrowing of the right mainstem bronchus with occlusion of the segmental bronchus to the right lower lobe secondary to the mediastinal and right hilar mass similar to the prior exam. There is postobstructive consolidation/pneumonia involving the entirety of the right lower lobe with areas of groundglass attenuation is noted in the right middle lobe similar to the prior exam. There are partially calcified central disc protrusions at T7-T8, T8-T9, T9-T10, and T11-T12 contributing to spinal canal stenosis greatest at T11-T12. This is similar to the prior exam. Impression dictated by: Jose Antonio Lainez M.D. 01/15/2025 11:33 AM Dictation Location: [place] [address] Transcribed By: [facility] 01/15/25 1133 Dictated By: Jose Antonio Lainez II, MD 01/15/25 1124 Signed By: 01/15/25 1133 Normal [facility] Calcium [Mass/volume] in Ser um or PlasmaOrdered By: Angelica Lawler on 01-15-2025 Calcium [Mass/Vol] 8.5 mg/dL Low 8.6-10.3 [facility] Comment on above: Performed By: #### M G, HS TROP, DDIMER, TSH3, CMP, BNP, CBC, [id number], PTT, PT #### [facility] [address] [place] [address] [place] Carbon dioxide, total [Moles /volume] in Serum or PlasmaOrdered By: Angelica Lawler on 01-15-2025 CO2 [Moles/Vol] 21.6 mmol/L Normal 21.0-31.0 [facility] Comment on above: Performed By: #### M G, HS TROP, DDIMER, TSH3, CMP, BNP, CBC, [id number], PTT, PT #### [facility] [address] [place] [address] [place] Chloride [Moles/volume] in S karishma or PlasmaOrdered By: Angelica Lawler on 01-15-2025 Chloride [Moles/Vol] 99 mmol/L Normal 98-107 [facility] Comment on above: Performed By: #### M G, HS TROP, DDIMER, TSH3, CMP, BNP, CBC, [id number], PTT, PT #### [facility] [address] [place] [address] [facility] Comprehensive metabolic 2000 panelon 01-15-2025 Albumin [Mass/Vol] 3.7 g/dL Low 3.9-4.9 [facility] Comment on above: Order Comment: Speci men Type: BLOOD SPECIMENOrdering Facility: [facility] Address: [address] [place] [address] Performed By: #### 1 9123-9, ####[facility] LABCLIA [id number] [place] [address] ALP [Catalytic activity/Vol] 59 U/L Normal 38-113 [facility] Comment on above: Order Comment: Speci men Type: BLOOD SPECIMENOrdering Facility: [facility] Address: [address] [place] [address] Performed By: #### 1 9123-9, ####[facility] LABCLIA [id number] [place] [address] ALT [Catalytic activity/Vol] 10 U/L Normal 10-54 [facility] Comment on above: Order Comment: Speci men Type: BLOOD SPECIMENOrdering Facility: [facility] Address: [facility] [place] [address] Performed By: #### 1 9123-9, 80392-1 ####[facility] LABCLIA [id number] [place] [address] Anion gap [Moles/Vol] 15 mmol/L Normal 8-15 [facility] Comment on above: Order Comment: Speci men Type: BLOOD SPECIMENOrdering Facility: [facility] Address: [address] [place] [address] Performed By: #### 1 9123-9, 03355-7 ####[facility] LABCLIA [id number] [place] [address] AST [Catalytic activity/Vol] 9 U/L Low 14-40 [facility] Comment on above: Order Comment: Speci men Type: BLOOD SPECIMENOrdering Facility: [facility] Address: [address] [place] [address] Performed By: #### 1 9123-9, 71748-0 ####[facility] LABCLIA [id number] [place] [address] Bilirubin [Mass/Vol] 0.6 mg/dL Normal 0.2-1.3 [facility] Comment on above: Order Comment: Speci men Type: BLOOD SPECIMENOrdering Facility: [facility] Address: [address] [place], [place] [address] Performed By: #### 1 9123-9, 08890-2 ####[facility] LABCLIA [id number] [place] [address] Calcium [Mass/Vol] 8.8 mg/dL Normal 8.5-10.2 [facility] Comment on above: Order Comment: Speci men Type: BLOOD SPECIMENOrdering Facility: [facility] Address: [address] [place] [address] Performed By: #### 1 9123-9, 95149-1 ####[facility] LABCLIA [id number] [place] [address] Chloride [Moles/Vol] 97 mmol/L Low 98-107 [facility] Comment on above: Order Comment: Speci men Type: BLOOD SPECIMENOrdering Facility: [facility] Address: [address] [place] [address] Performed By: #### 1 9123-9, 86836-2 ####[facility] LABCLIA [id number] [place] [address] CO2 [Moles/Vol] 19 mmol/L Low 22-30 [facility] Comment on above: Order Comment: Speci men Type: BLOOD SPECIMENOrdering Facility: [facility] Address: [address] [place] [address] Performed By: #### 1 9123-9, 44333-3 ####[facility] LABCLIA [id number] [place] [address] Creatinine [Mass/Vol] 0.90 mg/dL Normal 0.73-1.22 [facility] Comment on above: Order Comment: Speci men Type: BLOOD SPECIMENOrdering Facility: [facility] Address: [address] [place] [address] Performed By: #### 1 9123-9, 18381-6 ####[facility] LABCLIA [id number] [place] [address] eGFRcr SerPlBld CKD-EPI 2020 96 mL/min/1.73m??? Normal >=60 [facility] Comment on above: Order Comment: Speci men Type: BLOOD SPECIMENOrdering Facility: [facility] Address: [address] [place] [address] Result Comment: Carly mated Glomerular Filtration Rate (eGFR) is calculated using the 2020 CKD-EPI creatinine equation. This equation utilizes serum creatinine, sex, and age as parameters. The creatinine assay has traceable calibration to isotope dilution-mass spectrometry. Refer to KDIGO guidelines for clinical interpretation. In patients with unstable renal function, e.g. those with acute kidney injury, the eGFR may not accurately reflect actual GFR. Performed By: #### 1 9123-9, ####[facility] LABCLIA [id number] [place] [address] Glucose [Mass/Vol] 117 mg/dL High 74-99 [facility] Comment on above: Order Comment: Speci men Type: BLOOD SPECIMENOrdering Facility: [facility] Address: [address] [place] [address] Result Comment: The [place] Diabetes [employer] (ADA) provides guidance for cutoff values for fasting glucose and random glucose. The ADA defines fasting as no caloric intake for at least 8 hours. Fasting plasma glucose results between 100 to 125 mg/dL indicate increased risk for diabetes (prediabetes).Fasting plasma glucose results greater than or equal to 126 mg/dL meet the criteria for diagnosis of diabetes. In the absence of unequivocal hyperglycemia, results should be confirmed by repeat testing. In a patient with classic symptoms of hyperglycemia or hyperglycemic crisis, random plasma glucose results greater than or equal to 200 mg/dL meet the criteria for diagnosis of diabetes.Reference: Standards of Medical Care in Diabetes 2016, [place] [employer]. Diabetes Care. 2016.39(Suppl 1). Performed By: #### 1 9123-9, ####[facility] LABCLIA [id number] [place] [address] Potassium [Moles/Vol] 4.1 mmol/L Normal 3.7-5.1 [facility] Comment on above: Order Comment: Speci men Type: BLOOD SPECIMENOrdering Facility: [facility] Address: [address] [place] [address] Performed By: #### 1 9123-9, ####[facility] LABCLIA [id number] [place] [address] Protein [Mass/Vol] 7.5 g/dL Normal 6.3-8.0 [facility] Comment on above: Order Comment: Speci men Type: BLOOD SPECIMENOrdering Facility: [facility] Address: [address] [place] [address] Performed By: #### 1 9123-9, 36593-3 ####[facility] LABCLIA [id number] [place] [address] Sodium [Moles/Vol] 131 mmol/L Low 136-144 [facility] Comment on above: Order Comment: Speci men Type: BLOOD SPECIMENOrdering Facility: [facility] Address: [address] [place], [place] [address] Performed By: #### 1 9123-9, 39924-9 ####[facility] LABCLIA [id number] [place] [address] Urea nitrogen [Mass/Vol] 22 mg/dL Normal 9-24 [facility] Comment on above: Order Comment: Speci men Type: BLOOD SPECIMENOrdering Facility: [facility] Address: [address] [place], [place] [address] Performed By: #### 1 9123-9, 01202-2 ####[facility] LABCLIA [id number] [place] [address] Creatine kinase [Enzymatic a ctivity/volume] in Serum or PlasmaOrdered By: Angelica Lawler on 01-15-2025 CK [Catalytic activity/Vol] 23 U/L Low 30-223 [facility] Comment on above: Performed By: #### M G, HS TROP, DDIMER, TSH3, CMP, BNP, CBC, [id number], PTT, PT #### [facility] [address] [place] [address] [facility] Creatinine [Mass/volume] in Serum or PlasmaOrdered By: Angelica Lawler on 01-15-2025 Creatinine [Mass/Vol] 0.95 mg/dL Normal 0.70-1.30 [facility] Comment on above: Performed By: #### M G, HS TROP, DDIMER, TSH3, CMP, BNP, CBC, [id number], PTT, PT #### [facility] [address] [place], [place] [address] [facility] ECG 12 lead ECGon 01-15-2025 ECG 12 lead ECG [facility] [address] [place] [address] [place] [address] Electrocardiograph Report Signed Patient: Jatin Koch II MR#: [id number] : 1960 Acct:[id number] Age/Sex: 64 / M ADM Date: 01/15/25 Loc: Room: [address] [place] [address] Type: ADM IN Attending Dr: Hayes Olivarez DO Ordering Provider: Angelica Lawler DO Date of Service: 01/15/2510/06/933 ECG/ECG 12 lead ECG: Shortness of Breath/Dyspnea Copies to: Test Reason : Blood Pressure : */* mmHG Vent. Rate : 101 BPM Atrial Rate : 88 BPM P-R Int : * ms QRS Dur : 138 ms QT Int : 384 ms P-R-T Axes : * -87 72 degrees QTcB Int : 497 ms Atrial fibrillation with rapid ventricular response with a competing junctional pacemaker with premature ventricular or aberrantly conducted complexes Ventricular-paced rhythm Left axis deviation Nonspecific intraventricular block Cannot rule out Septal infarct , age undetermined Possible Lateral infarct , age undetermined Abnormal ECG When compared with ECG of 02-Jan-2025 13:48, Atrial fibrillation has replaced Sinus rhythm Vowry-Kwkkwfrsf-Kgnht is no longer present Confirmed by ANGELICA LAWLER DO ([id number]) on 01/15/2025 4:18:40 PM Referred By: Electronically Signed By: ANGELICA LAWLER DO Transcribed By: MUS Signed By Angelica Lawler DO 1618 Normal [facility] Eosinophils [#/volume] in Bl ood by Automated countOrdered By: Angelica Lawler on 01-15-2025 Eosinophils (Bld) [#/Vol] 0.1 10*3/uL Normal 0.0-0.45 [facility] Comment on above: Order Comment: PLATE LET CLUMPS/ NOTIFIED ARTIE Performed By: #### M G, HS TROP, DDIMER, TSH3, CMP, BNP, CBC, [id number], PTT, PT #### [facility] [address] [place], [place] [address] [place] Eosinophils/100 leukocytes i n Blood by Automated countOrdered By: Angelica Lawler on 01-15-2025 Eosinophils/100 WBC (Bld) 0.7 % Normal . [facility] Comment on above: Order Comment: PLATE LET CLUMPS/ NOTIFIED ARTIE Performed By: #### M G, HS TROP, DDIMER, TSH3, CMP, BNP, CBC, [id number], PTT, PT #### [facility] [address] [place] [address] [place] Erythrocyte distribution wid th [Ratio] by Automated countOrdered By: Angelica Lawler on 01-15-2025 Erythrocyte distribution width (RBC) [Ratio] 16.5 % High 12.0-14.8 [facility] Comment on above: Order Comment: PLATE LET CLUMPS/ NOTIFIED ARTIE Performed By: #### M G, HS TROP, DDIMER, TSH3, CMP, BNP, CBC, [id number], PTT, PT #### [facility] [address] [place] [id number] [facility] Erythrocyte morphology findi ng [Identifier] in BloodOrdered By: Angelica Lawler on 01-15-2025 RBC morphology finding Nom (Bld) N/A [facility] Erythrocytes [#/volume] in B lood by Automated countOrdered By: Angelica Lawler on 01-15-2025 RBC (Bld) [#/Vol] 3.60 10*6/uL Low 3.90-5.60 [facility] Comment on above: Order Comment: PLATE LET CLUMPS/ NOTIFIED ARTIE Performed By: #### M G, HS TROP, DDIMER, TSH3, CMP, BNP, CBC, [id number], PTT, PT #### [facility] [address] [place] [address] [place] Glucose [Mass/volume] in Ser um or PlasmaOrdered By: Angelica Lawler on 01-15-2025 Glucose [Mass/Vol] 72 mg/dL Normal 70-100 [facility] Comment on above: ADA recommended refe rence rangeRandom Glucose Reference Range is dependent on time and content of last meal. Glucose of more than 200 mg/dL in a nonstressed, ambulatory subject supports the diagnosis of Diabetes Mellitus. Result Comment: [facility] Glucose Reference Range is dependent on time and content of last meal. Glucose of more than 200 mg/dL in a nonstressed, ambulatory subject supports the diagnosis of Diabetes Mellitus. ADA recommended reference range Performed By: #### M G, HS TROP, DDIMER, TSH3, CMP, BNP, CBC, [id number], PTT, PT #### [facility] [address] Hematocrit [Volume Fraction] of Blood by Automated countOrdered By: Angelica Lawler on 01-15-2025 Hematocrit (Bld) [Volume fraction] 28.9 % Low 38.8-50.0 [facility] Comment on above: Order Comment: PLATE LET CLUMPS/ NOTIFIED ARTIE Performed By: #### M G, HS TROP, DDIMER, TSH3, CMP, BNP, CBC, [id number], PTT, PT #### [facility] [address] Hemoglobin [Mass/volume] in BloodOrdered By: Angelica Lawler on 01-15-2025 Hemoglobin (Bld) [Mass/Vol] 9.4 g/dL Low 13.0-17.0 [facility] Comment on above: Order Comment: PLATE LET CLUMPS/ NOTIFIED ARTIE Performed By: #### M G, HS TROP, DDIMER, TSH3, CMP, BNP, CBC, [id number], PTT, PT #### [facility] [address] INR in Platelet poor plasma by Coagulation assayOrdered By: Angelica Lawler on 01-15-2025 INR Coag (PPP) [Relative time] 1.4 {INR} Normal [facility] Comment on above: INR Therapeutic Rang e A) Pre- and Peroperative OAT started two weeks before surgery. NOT HIP SURGERY: 1.5 - 2.5 HIP SURGERY: 2 - 3B) Primary and secondary prevention of venous THROMBOSIS: 2 - 3C) Active venous thrombosis, pulmonary embolismand prevention of recurrent venous thrombosis: 2 - 3D) Prevention of arterial thromboembolismincluding patients with mechanical heart valves: 3 - 4.5 Result Comment: INR Therapeutic Range A) Pre- and Peroperative OAT started two weeks before surgery. NOT HIP SURGERY: 1.5 - 2.5 HIP SURGERY: 2 - 3 B) Primary and secondary prevention of venous THROMBOSIS: 2 - 3 C) Active venous thrombosis, pulmonary embolism and prevention of recurrent venous thrombosis: 2 - 3 D) Prevention of arterial thromboembolism including patients with mechanical heart valves: 3 - 4.5 PERFORMED BY: [place] [address] PATHOLOGIST STATION INSPECTOR KELVIN HOLMAN M.D. Performed By: #### M G, HS TROP, DDIMER, TSH3, CMP, BNP, CBC, [id number], PTT, PT #### [facility] [address] [place], [place] [address] [facility] Lactate [Moles/volume] in Se rum or PlasmaOrdered By: Angelica Lawler on 01-15-2025 Lactate [Moles/Vol] 0.8 mmol/L Normal 0.5-1.9 [facility] Comment on above: Lactic Acid referenc e range has been updated to 0.5 1.9 mmol/L and the critical range of 2.0 or greater. Result Comment: Lact ic Acid reference range has been updated to 0.5 ? 1.9 mmol/L and the critical range of 2.0 or greater. PERFORMED BY: [place] [address] PATHOLOGIST STATION INSPECTOR KELVIN HOLMAN M.D. Performed By: #### M G, HS TROP, DDIMER, TSH3, CMP, BNP, CBC, [id number], PTT, PT #### [facility] [address] [place], [place] [phone] [facility] Leukocytes [#/volume] correc abe for nucleated erythrocytes in Blood by Automated counOrdered By: Angelica Lawler on 01-15-2025 WBC corrected for nucl RBC Auto (Bld) [#/Vol] 18.0 10*3/uL High 4.1-10.5 [facility] Leukocytes [#/volume] in Blo od by Automated countOrdered By: Angelica Lawler on 01-15-2025 WBC (Bld) [#/Vol] 18.0 10*3/uL High 4.1-10.5 [facility] Comment on above: Order Comment: PLATE LET CLUMPS/ NOTIFIED ARTIE Performed By: #### M G, HS TROP, DDIMER, TSH3, CMP, BNP, CBC, [id number], PTT, PT #### [address] Lymphocytes [#/volume] in Bl ood by Automated countOrdered By: Angelica Lawler on 01-15-2025 Lymphocytes (Bld) [#/Vol] 0.7 10*3/uL Low 1.00-4.8 [facility] Comment on above: Order Comment: PLATE LET CLUMPS/ NOTIFIED ARTIE Performed By: #### M G, HS TROP, DDIMER, TSH3, CMP, BNP, CBC, [id number], PTT, PT #### [address] Lymphocytes/100 leukocytes i n Blood by Automated countOrdered By: Angelica Lawler on 01-15-2025 Lymphocytes/100 WBC (Bld) 3.8 % Normal . [facility] Comment on above: Order Comment: PLATE LET CLUMPS/ NOTIFIED ARTIE Performed By: #### M G, HS TROP, DDIMER, TSH3, CMP, BNP, CBC, [id number], PTT, PT #### [address] MCH [Entitic mass] by Automa abe countOrdered By: Angelica Lawler on 01-15-2025 MCH (RBC) [Entitic mass] 26.2 pg Low 27.5-35.2 [facility] Comment on above: Order Comment: PLATE LET CLUMPS/ NOTIFIED ARTIE Performed By: #### M G, HS TROP, DDIMER, TSH3, CMP, BNP, CBC, [id number], PTT, PT #### [facility] [address] [place] [address] MCHC Auto (RBC) [Mass/Vol]Or dered By: Angelica Lawler on 01-15-2025 MCHC (RBC) [Mass/Vol] 32.6 g/dL 32.5-35.6 [facility] MCV [Entitic volume] by Auto mated countOrdered By: Angelica Lawler on 01-15-2025 MCV (RBC) [Entitic vol] 80.3 fL Low 83.5-101 [facility] Comment on above: Order Comment: PLATE LET CLUMPS/ NOTIFIED ARTIE Performed By: #### M G, HS TROP, DDIMER, TSH3, CMP, BNP, CBC, [id number], PTT, PT #### [facility] [address] [id number] [facility] Magnesiumon 01-15-2025 Magnesium Normal 1.9-2.7 [facility] Comment on above: Result Comment: Spec imen hemolyzed, redraw requested PERFORMED BY: [address] [address] PATHOLOGIST STATION INSPECTOR KELVIN HOLMAN M.D. Performed By: #### M G, HS TROP, DDIMER, TSH3, CMP, BNP, CBC, [id number], PTT, PT #### [facility] [address] [place] [address] [facility] Magnesium SerPl-mCncon 01-15 Magnesium [Mass/Vol] 1.4 mg/dL Low 1.7-2.3 [facility] Comment on above: Order Comment: Speci men Type: BLOOD SPECIMENOrdering Facility: [facility] Address: [address] [place] [address] Performed By: #### 1 9123-9, 32958-6 ####[facility] LABCLIA [id number] [place] [address] Magnesium [Mass/volume] in S karishma or PlasmaOrdered By: Angelica Lawler on 01-15-2025 Magnesium [Mass/Vol] 1.4 mg/dL Low 1.9-2.7 [facility] Comment on above: Order Comment: 1ST S pecimen hemolyzed, redraw requested Result Comment: PERF ORMED BY: [address] [address] PATHOLOGIST STATION INSPECTOR KELVIN HOLMAN M.D. Performed By: #### M G, HS TROP, DDIMER, TSH3, CMP, BNP, CBC, [id number], PTT, PT #### [facility] [address] [place] [address] [place] Microcytes LM Ql (Bld)Ordere d By: Angelica Lawler on 01-15-2025 Microcytes Ql (Bld) Slight [facility] Monocyte distribution width [Entitic volume] in Blood by AutomatedOrdered By: Angelica Lawler on 01-15-2025 Monocyte distribution width Auto (Bld) [Entitic vol] Test not performed % 0.00-20.00 [facility] Comment on above: Unable to calculate MDW because the Absolute Monocyte Count is <0.8. Monocytes [#/volume] in Bloo d by Automated countOrdered By: Angelica Lawler on 01-15-2025 Monocytes (Bld) [#/Vol] 0.1 10*3/uL Normal 0.0-0.8 [facility] Comment on above: Order Comment: PLATE LET CLUMPS/ NOTIFIED ARTIE Performed By: #### M G, HS TROP, DDIMER, TSH3, CMP, BNP, CBC, [id number], PTT, PT #### [facility] [address] [place] [address] [place] Monocytes/100 leukocytes in Blood by Automated countOrdered By: Angelica Lawler on 01-15-2025 Monocytes/100 WBC (Bld) 0.3 % Normal . [facility] Comment on above: Order Comment: PLATE LET CLUMPS/ NOTIFIED ARTIE Performed By: #### M G, HS TROP, DDIMER, TSH3, CMP, BNP, CBC, [id number], PTT, PT #### [facility] [address] [place] [address] [place] Neutrophils [#/volume] in Bl ood by Automated countOrdered By: Angelica Lawler on 01-15-2025 Neutrophils (Bld) [#/Vol] 16.6 10*3/uL High 1.8-7.7 [facility] Comment on above: Order Comment: PLATE LET CLUMPS/ NOTIFIED ARTIE Performed By: #### M G, HS TROP, DDIMER, TSH3, CMP, BNP, CBC, [id number], PTT, PT #### [facility] [address] [place] [address] [place] Neutrophils/100 leukocytes i n Blood by Automated countOrdered By: Angelica Lawler on 01-15-2025 Neutrophils/100 WBC (Bld) 94.9 % Normal . [facility] Comment on above: Order Comment: PLATE LET CLUMPS/ NOTIFIED ARTIE Performed By: #### M G, HS TROP, DDIMER, TSH3, CMP, BNP, CBC, [id number], PTT, PT #### [facility] [address] No Panel InformationOrdered By: Angelica Lawler on 01-15-2025 Estimated GFR (CKD-EPI) > 60.0 mL/Min [facility] Creatinine Clearance (Chem 83.35 [facility] Nucleated erythrocytes [Pres ence] in Blood by Automated countOrdered By: Angelica Lawler on 01-15-2025 Nucleated RBC Auto Ql (Bld) 0.0 /100{WBC} 0-0.5 [facility] Platelet adequacy [Presence] in Blood by Light microscopyOrdered By: Angelica Lawler on 01-15-2025 Platelets LM Ql (Bld) Normal Normal [facility] Platelet mean volume [Entiti c volume] in Blood by Automated countOrdered By: Angelica Lawler on 01-15-2025 Platelet mean volume (Bld) [Entitic vol] 7.4 fL Normal 6.6-10.1 [facility] Comment on above: Order Comment: PLATE LET CLUMPS/ NOTIFIED ARTIE Performed By: #### M G, HS TROP, DDIMER, TSH3, CMP, BNP, CBC, [id number], PTT, PT #### [facility] [address] Platelet morphology finding [Identifier] in BloodOrdered By: Angelica Lawler on 01-15-2025 Platelet morphology finding Nom (Bld) Normal Normal [facility] Platelets [#/volume] in Bloo d by Automated countOrdered By: Angelica Lawler on 01-15-2025 Platelets (Bld) [#/Vol] 220 10*3/uL Normal 150-450 [facility] Comment on above: Order Comment: PLATE LET CLUMPS/ NOTIFIED ARTIE Performed By: #### M G, HS TROP, DDIMER, TSH3, CMP, BNP, CBC, [id number], PTT, PT #### [facility] [address] Potassium [Moles/volume] in Serum or PlasmaOrdered By: Angelica Lawler on 01-15-2025 Potassium [Moles/Vol] 4.2 mmol/L Normal 3.5-5.1 [facility] Comment on above: Order Comment: 1ST S pecimen hemolyzed, redraw requested Performed By: #### M G, HS TROP, DDIMER, TSH3, CMP, BNP, CBC, [id number], PTT, PT #### [facility] [address] Prothrombin time (PT)Ordered By: Angelica Lawler on 01-15-2025 PT Coag (PPP) [Time] 15.8 s High 9.0-12.9 [facility] Comment on above: A hematocrit value g reater than 55% may lead to inaccurate results in coagulation testing. Patients having hematocrit values >55% require a special collection tube for coagulation studies. Please contact the laboratory at [phone] for redraw instructions. Result Comment: A he matocrit value greater than 55% may lead to inaccurate results in coagulation testing. Patients having hematocrit values >55% require a special collection tube for coagulation studies. Please contact the laboratory at [phone] for redraw instructions. Performed By: #### M G, HS TROP, DDIMER, TSH3, CMP, BNP, CBC, [id number], PTT, PT #### [facility] [address] [place] [address] [facility] Scan and CBCon 01-15-2025 Mean Corpuscular HGB Conc 32.6 g/dL Normal 32.5-35.6 [facility] Comment on above: Order Comment: PLATE LET CLUMPS/ NOTIFIED ARTIE Performed By: #### M G, HS TROP, DDIMER, TSH3, CMP, BNP, CBC, [id number], PTT, PT #### [address] Microcytosis Slight Normal [facility] Comment on above: Order Comment: PLATE LET CLUMPS/ NOTIFIED ARTIE Performed By: #### M G, HS TROP, DDIMER, TSH3, CMP, BNP, CBC, [id number], PTT, PT #### [address] Monocyte Distribution Width Not performed Normal 0.00-20.00 [facility] Comment on above: Order Comment: PLATE LET CLUMPS/ NOTIFIED ARTIE Result Comment: Unab le to calculate MDW because the Absolute Monocyte Count is <0.8. Performed By: #### M G, HS TROP, DDIMER, TSH3, CMP, BNP, CBC, [id number], PTT, PT #### [address] NRBC% 0.0 /100{WBC} Normal 0-0.5 [facility] Comment on above: Order Comment: PLATE LET CLUMPS/ NOTIFIED ARTIE Performed By: #### M G, HS TROP, DDIMER, TSH3, CMP, BNP, CBC, [id number], PTT, PT #### [address] Platelet Estimate Normal Normal Normal [facility] Comment on above: Order Comment: PLATE LET CLUMPS/ NOTIFIED ARTIE Performed By: #### M G, HS TROP, DDIMER, TSH3, CMP, BNP, CBC, [id number], PTT, PT #### [address] Platelet Morphology Normal Normal Normal [facility] Comment on above: Order Comment: PLATE LET CLUMPS/ NOTIFIED ARTIE Result Comment: PERF ORMED BY: [place] [address] PATHOLOGIST STATION INSPECTOR KELVIN HOLMAN M.D. Performed By: #### M G, HS TROP, DDIMER, TSH3, CMP, BNP, CBC, [id number], PTT, PT #### [address] White Blood Count 18.0 [CFU]/mL High 4.1-10.5 [facility] Comment on above: Order Comment: PLATE LET CLUMPS/ NOTIFIED ARTIE Performed By: #### M G, HS TROP, DDIMER, TSH3, CMP, BNP, CBC, [id number], PTT, PT #### [facility] [address] Serum or plasma anion gap de terminationOrdered By: Angelica Lawler on 01-15-2025 Anion gap [Moles/Vol] TNP [facility] Comment on above: Test not performed Sodium [Moles/volume] in Ser um or PlasmaOrdered By: Angelica Lawler on 01-15-2025 Sodium [Moles/Vol] 133 mmol/L Low 136-145 [facility] Comment on above: Performed By: #### M G, HS TROP, DDIMER, TSH3, CMP, BNP, CBC, [id number], PTT, PT #### [address] Troponin I High Sensitivityo n 01-15-2025 Troponin I High Sensitivity 7 Normal 0-20 [facility] Comment on above: Result Comment: The Troponin units of report have been changed to meet the Chest Pain Accreditation requirement, element EC5.M1l2. Troponin units are changed from pg/ml to ng/L. Also, the decimal is removed and results are in whole numbers. PERFORMED BY: [place] [address] PATHOLOGIST STATION INSPECTOR KELVIN HOLMAN M.D. Performed By: #### M G, HS TROP, DDIMER, TSH3, CMP, BNP, CBC, [id number], PTT, PT #### [address] Troponin I High Sensitivity 9 Normal 0-20 [facility] Comment on above: Result Comment: The Troponin units of report have been changed to meet the Chest Pain Accreditation requirement, element EC5.M1l2. Troponin units are changed from pg/ml to ng/L. Also, the decimal is removed and results are in whole numbers. PERFORMED BY: [place] [address] PATHOLOGIST STATION INSPECTOR KELVIN HOLMAN M.D. Performed By: #### M G, HS TROP, DDIMER, TSH3, CMP, BNP, CBC, [id number], PTT, PT #### [address] Troponin I High Sensitivity 7 Normal 0-20 [facility] Comment on above: Result Comment: The Troponin units of report have been changed to meet the Chest Pain Accreditation requirement, element EC5.M1l2. Troponin units are changed from pg/ml to ng/L. Also, the decimal is removed and results are in whole numbers. PERFORMED BY: [place] [address] PATHOLOGIST STATION INSPECTOR KELVIN HOLMAN M.D. Performed By: #### M G, HS TROP, DDIMER, TSH3, CMP, BNP, CBC, [id number], PTT, PT #### [address] Troponin I.cardiac [Mass/vol ume] in Serum or Plasma by Detection limit <= 0.01 ng/mLOrdered By: Angelica Lawler on 01-15-2025 Troponin I.cardiac DL <= 0.01 ng/mL [Mass/Vol] 7 ng/L 0-20 [facility] Comment on above: The Troponin units o f report have been changed to meet the Chest Pain Accreditation requirement, element EC5.M1l2. Troponin units are changed from pg/ml to ng/L. Also, the decimal is removed and results are in whole numbers. Urea nitrogen [Mass/volume] in Serum or PlasmaOrdered By: Angelica Lawler on 01-15-2025 Urea nitrogen [Mass/Vol] 27 mg/dL High 7-25 [facility] Comment on above: Performed By: #### M G, HS TROP, DDIMER, TSH3, CMP, BNP, CBC, [id number], PTT, PT #### [facility] [address] [id number] [facility] CNNURSEon 01-12-2025 CNNURSE Normal [facility] CNNURSEon 01-11-2025 CNNURSE Normal [facility] CNPNon 01-11-2025 CNPN Normal [facility] CNNURSEon 01-10-2025 CNNURSE Normal [facility] CNOVon 01-10-2025 CNOV Normal [facility] CNNURSEon 01-09-2025 CNNURSE Normal [facility] CNPNon 01-09-2025 CNPN Normal [facility] CBC W Auto Differential pane l (Bld)on 01-08-2025 Basophils (Bld) [#/Vol] 0.05 10*3/uL [facility] Basophils/100 WBC (Bld) 0.3 % [facility] Differential cell count method Nom (Bld) Auto [facility] Eosinophils (Bld) [#/Vol] 0.48 10*3/uL High [facility] Eosinophils/100 WBC (Bld) 3 % [facility] Erythrocyte distribution width (RBC) [Ratio] 14.8 % 11.5 - 15.0 % [facility] Hematocrit (Bld) [Volume fraction] 33 % Low 39.0 - 51.0 % [facility] Hemoglobin (Bld) [Mass/Vol] 10.5 g/dL Low 13.0 - 17.0 g/dL [facility] Immature granulocytes (Bld) [#/Vol] 0.15 10*3/uL High [facility] Immature granulocytes/100 WBC (Bld) 0.9 % [facility] Interpretation and review of laboratory results Abnormal [facility] Lymphocytes (Bld) [#/Vol] 1.83 10*3/uL [facility] Lymphocytes/100 WBC (Bld) 11.5 % [facility] MCH (RBC) [Entitic mass] 26.9 pg 26.0 - 34.0 pg [facility] MCHC (RBC) [Mass/Vol] 31.8 g/dL 30.5 - 36.0 g/dL [facility] MCV (RBC) [Entitic vol] 84.4 fL 80.0 - 100.0 fL [facility] Monocytes (Bld) [#/Vol] 0.74 10*3/uL [facility] Monocytes/100 WBC (Bld) 4.7 % [facility] Neutrophils (Bld) [#/Vol] 12.61 10*3/uL High [facility] Neutrophils/100 WBC (Bld) 79.6 % [facility] Nucleated RBC (Bld) [#/Vol] NINF [facility] Nucleated RBC/100 WBC (Bld) [Ratio] 0 % /100 WBC [facility] Platelet mean volume (Bld) [Entitic vol] 9 fL 9.0 - 12.7 fL [facility] Platelets (Bld) [#/Vol] 315 10*3/uL [facility] RBC (Bld) [#/Vol] 3.91 10*6/uL Low 4.20 - 6.00 m/uL [facility] WBC (Bld) [#/Vol] 15.86 10*3/uL High [facility] Basophils (Bld) [#/Vol] 0.05 10*3/uL Normal <0.11 [facility] Comment on above: Order Comment: Speci men Type: BLOOD SPECIMENOrdering Facility: [facility] Address: [address] [place] [address] Performed By: #### 5 7021-8 ####[facility] LABCLIA [id number] [place] [address] Basophils/100 WBC (Bld) 0.3 % Normal [facility] Comment on above: Order Comment: Speci men Type: BLOOD SPECIMENOrdering Facility: [facility] Address: [address] [place] [address] Performed By: #### 5 7021-8 ####[facility]CL[facility] [id number] [place] [address] Differential cell count method Nom (Bld) Auto Normal [facility] Comment on above: Order Comment: Speci men Type: BLOOD SPECIMENOrdering Facility: [facility] Address: [address] [place] [address] Performed By: #### 5 7021-8 ####[facility]CL[facility] [id number] [place] [address] Eosinophils (Bld) [#/Vol] 0.48 10*3/uL High <0.46 [facility] Comment on above: Order Comment: Speci men Type: BLOOD SPECIMENOrdering Facility: [facility] Address: [address] [place] [address] Performed By: #### 5 7021-8 ####[facility]CL[facility] [id number] [place] [address] Eosinophils/100 WBC (Bld) 3.0 % Normal [facility] Comment on above: Order Comment: Speci men Type: BLOOD SPECIMENOrdering Facility: [facility] Address: [address] [place] [address] Performed By: #### 5 7021-8 ####[facility]CL[facility] [id number] [place] [address] Erythrocyte distribution width (RBC) [Ratio] 14.8 % Normal 11.5-15.0 [facility] Comment on above: Order Comment: Speci men Type: BLOOD SPECIMENOrdering Facility: [facility] Address: [address] [place] [address] Performed By: #### 5 7021-8 ####[facility]CLIA [id number] [place] [address] Hematocrit (Bld) [Volume fraction] 33.0 % Low 39.0-51.0 [facility] Comment on above: Order Comment: Speci men Type: BLOOD SPECIMENOrdering Facility: [facility] Address: [address] [place] [address] Performed By: #### 5 7021-8 ####[facility]CL[facility] [id number] [place] [address] Hemoglobin (Bld) [Mass/Vol] 10.5 g/dL Low 13.0-17.0 [facility] Comment on above: Order Comment: Speci men Type: BLOOD SPECIMENOrdering Facility: [facility] Address: [address] [place], [place] [address] Performed By: #### 5 7021-8 ####[facility]CL[facility] [id number] [place] [address] Immature granulocytes (Bld) [#/Vol] 0.15 10*3/uL High <0.10 [facility] Comment on above: Order Comment: Speci men Type: BLOOD SPECIMENOrdering Facility: [facility] Address: [address] [place] [address] Performed By: #### 5 7021-8 ####[facility]CL[facility] [id number] [place] [address] Immature granulocytes/100 WBC (Bld) 0.9 % Normal [facility] Comment on above: Order Comment: Speci men Type: BLOOD SPECIMENOrdering Facility: [facility] Address: [address] [place] [address] Performed By: #### 5 7021-8 ####[facility]CLIA [id number] [place] [address] Lymphocytes (Bld) [#/Vol] 1.83 10*3/uL Normal 1.00-4.00 [facility] Comment on above: Order Comment: Speci men Type: BLOOD SPECIMENOrdering Facility: [facility] Address: [address] [place] [address] Performed By: #### 5 7021-8 ####[facility]CL[facility] [id number] [place] [address] Lymphocytes/100 WBC (Bld) 11.5 % Normal [facility] Comment on above: Order Comment: Speci men Type: BLOOD SPECIMENOrdering Facility: [facility] Address: [address] [place] [address] Performed By: #### 5 7021-8 ####[facility]CLIA [id number] [place] [address] MCH (RBC) [Entitic mass] 26.9 pg Normal 26.0-34.0 [facility] Comment on above: Order Comment: Speci men Type: BLOOD SPECIMENOrdering Facility: [facility] Address: [address] [place] [address] Performed By: #### 5 7021-8 ####[facility]CLIA [id number] [place] [address] MCHC (RBC) [Mass/Vol] 31.8 g/dL Normal 30.5-36.0 [facility] Comment on above: Order Comment: Speci men Type: BLOOD SPECIMENOrdering Facility: [facility] Address: [address] [place] [address] Performed By: #### 5 7021-8 ####[facility]CLIA [id number] [place] [address] MCV (RBC) [Entitic vol] 84.4 fL Normal 80.0-100.0 [facility] Comment on above: Order Comment: Speci men Type: BLOOD SPECIMENOrdering Facility: [facility] Address: [address] [place] [address] Performed By: #### 5 7021-8 ####[facility]CLIA [id number] [place] [address] Monocytes (Bld) [#/Vol] 0.74 10*3/uL Normal <0.87 [facility] Comment on above: Order Comment: Speci men Type: BLOOD SPECIMENOrdering Facility: [facility] Address: [address] [place] [address] Performed By: #### 5 7021-8 ####[facility]CL[facility] [id number] [place] [address] Monocytes/100 WBC (Bld) 4.7 % Normal [facility] Comment on above: Order Comment: Speci men Type: BLOOD SPECIMENOrdering Facility: [facility] Address: [address] [place] [address] Performed By: #### 5 7021-8 ####[facility]CL[facility] [id number] [place] [address] Neutrophils (Bld) [#/Vol] 12.61 10*3/uL High 1.45-7.50 [facility] Comment on above: Order Comment: Speci men Type: BLOOD SPECIMENOrdering Facility: [facility] Address: [address] [place] [address] Performed By: #### 5 7021-8 ####[facility]CL[facility] [id number] [place] [address] Neutrophils/100 WBC (Bld) 79.6 % Normal [facility] Comment on above: Order Comment: Speci men Type: BLOOD SPECIMENOrdering Facility: [facility] Address: [address] [place] [address] Performed By: #### 5 7021-8 ####[facility]CL[facility] [id number] [place] [address] Nucleated RBC (Bld) [#/Vol] 10*3/uL Normal <0.01 [facility] Comment on above: Order Comment: Speci men Type: BLOOD SPECIMENOrdering Facility: [facility] Address: [address] [place] [address] Performed By: #### 5 7021-8 ####[facility]CLIA [id number] [place] [address] Nucleated RBC/100 WBC (Bld) [Ratio] 0.0 /100 WBC Normal [facility] Comment on above: Order Comment: Speci men Type: BLOOD SPECIMENOrdering Facility: [facility] Address: [address] [place] [address] Performed By: #### 5 7021-8 ####[facility] LABIA [id number] [place] [address] Platelet mean volume (Bld) [Entitic vol] 9.0 fL Normal 9.0-12.7 [facility] Comment on above: Order Comment: Speci men Type: BLOOD SPECIMENOrdering Facility: [facility] Address: [address] [place] [address] Performed By: #### 5 7021-8 ####[facility]CL[facility] [id number] [place] [address] Platelets (Bld) [#/Vol] 315 10*3/uL Normal 150-400 [facility] Comment on above: Order Comment: Speci men Type: BLOOD SPECIMENOrdering Facility: [facility] Address: [address] [place] [address] Performed By: #### 5 7021-8 ####[facility] LABIA [id number] [place] [address] RBC (Bld) [#/Vol] 3.91 10*6/uL Low 4.20-6.00 [facility] Comment on above: Order Comment: Speci men Type: BLOOD SPECIMENOrdering Facility: [facility] Address: [address] [place] [address] Performed By: #### 5 7021-8 ####[facility] LABIA [id number] [place] [address] WBC (Bld) [#/Vol] 15.86 10*3/uL High 3.70-11.00 [facility] Comment on above: Order Comment: Speci men Type: BLOOD SPECIMENOrdering Facility: [facility] Address: [address] [place] [address] Performed By: #### 5 7021-8 ####[facility] LABIA [id number] [place] [address] CNNURSEon 01-08-2025 CNNURSE Normal [facility] CNOVon 01-08-2025 CNOV Normal [facility] CNOVSPon 01-08-2025 CNOVSP Normal [facility] CNPNon 01-08-2025 CNPN Normal [facility] metabolic 2000 panelOrdered By: Sam De La Cruz on 01-08-2025 Albumin [Mass/Vol] 3.6 g/dL Low 3.9 - 4.9 g/dL [facility] ALP [Catalytic activity/Vol] 61 U/L 38 - 113 U/L [facility] ALT [Catalytic activity/Vol] 37 U/L 10 - 54 U/L [facility] Anion gap [Moles/Vol] 12 mmol/L 8 - 15 mmol/L [facility] AST [Catalytic activity/Vol] 27 U/L 14 - 40 U/L [facility] Bilirubin [Mass/Vol] 0.3 mg/dL 0.2 - 1 .3 mg/dL [facility] Calcium [Mass/Vol] 9.1 mg/dL 8.5 - 10. 2 mg/dL [facility] Chloride [Moles/Vol] 102 mmol/L 98 - 10 7 mmol/L [facility] CO2 [Moles/Vol] 22 mmol/L 22 - 30 mmol/L [facility] Creatinine [Mass/Vol] 0.7 mg/dL Low 0.73 - 1.22 mg/dL [facility] GFR/1.73 sq M.predicted among non-blacks MDRD (S/P/Bld) [Vol rate/Area] 104 mL/min/{1.73_m2} - PINF [facility] Comment on above: Estimated Glomerular Filtration Rate (eGFR) is calculated using the 2020 CKD-EPI creatinine equation. This equation utilizes serum creatinine, sex, and age as parameters. The creatinine assay has traceable calibration to isotope dilution-mass spectrometry. Refer to KDIGO guidelines for clinical interpretation. In patients with unstable renal function, e.g. those with acute kidney injury, the eGFR may not accurately reflect actual GFR. Glucose [Mass/Vol] 131 mg/dL High 74 - 99 mg/dL [facility] Comment on above: The [place] Diab[employer] s Association (ADA) provides guidance for cutoff values [...] Standards of Medical Care in Diabetes 2016, [place] [employer]. Diabetes Care. 2016.39(Suppl 1). Interpretation and review of laboratory results Abnormal [facility] Potassium [Moles/Vol] 3.6 mmol/L Low 3.7 - 5.1 mmol/L [facility] Protein [Mass/Vol] 6.9 g/dL 6.3 - 8.0 g/dL [facility] Sodium [Moles/Vol] 136 mmol/L 136 - 144 mmol/L [facility] Urea nitrogen [Mass/Vol] 8 mg/dL Low 9 - 24 mg/dL [facility] Comprehensive metabolic 2000 panelon 01-08-2025 Albumin [Mass/Vol] 3.6 g/dL Low 3.9-4.9 [facility] Comment on above: Order Comment: Speci della Type: BLOOD SPECIMENOrdering Facility: [facility] Address: [address] [place] [address] Performed By: #### 1 9123-9, 59914-1 ####[facility] LABCLIA [id number] [place] [address] ALP [Catalytic activity/Vol] 61 U/L Normal 38-113 [facility] Comment on above: Order Comment: Kavitai della Type: BLOOD SPECIMENOrdering Facility: [facility] Address: [address] [place] [address] Performed By: #### 1 9123-9, 98002-3 ####[facility] LABCLIA [id number] [place] [address] ALT [Catalytic activity/Vol] 37 U/L Normal 10-54 [facility] Comment on above: Order Comment: Speci men Type: BLOOD SPECIMENOrdering Facility: [facility] Address: [address] [place] [address] Performed By: #### 1 9123-9, 60190-9 ####[facility] LABCLIA [id number] [place] [address] Anion gap [Moles/Vol] 12 mmol/L Normal 8-15 [facility] Comment on above: Order Comment: Speci men Type: BLOOD SPECIMENOrdering Facility: [facility] Address: [address] [place] [address] Performed By: #### 1 9123-9, ####[facility] LABCLIA [id number] [place] [address] AST [Catalytic activity/Vol] 27 U/L Normal 14-40 [facility] Comment on above: Order Comment: Speci men Type: BLOOD SPECIMENOrdering Facility: [facility] Address: [address] [place], [place] [address] Performed By: #### 1 9123-9, 05474-8 ####[facility] LABIA [id number] [place] [address] Bilirubin [Mass/Vol] 0.3 mg/dL Normal 0.2-1.3 [facility] Comment on above: Order Comment: Speci men Type: BLOOD SPECIMENOrdering Facility: [facility] Address: [address] [place] [address] Performed By: #### 1 9123-9, 86878-5 ####[facility] LABIA [id number] [place] [address] Calcium [Mass/Vol] 9.1 mg/dL Normal 8.5-10.2 [facility] Comment on above: Order Comment: Speci men Type: BLOOD SPECIMENOrdering Facility: [facility] Address: [address] [place] [address] Performed By: #### 1 9123-9, 25967-5 ####[facility] LABCLIA [id number] [place] [address] Chloride [Moles/Vol] 102 mmol/L Normal 98-107 [facility] Comment on above: Order Comment: Speci men Type: BLOOD SPECIMENOrdering Facility: [facility] Address: [address] [place] [address] Performed By: #### 1 23-9, 12994-8 ####[facility] LABCLIA [id number] [place] [address] CO2 [Moles/Vol] 22 mmol/L Normal 22-30 [facility] Comment on above: Order Comment: Speci men Type: BLOOD SPECIMENOrdering Facility: [facility] Address: [address] [place] [address] Performed By: #### 1 9123-9, 99624-2 ####[facility] LABCLIA [id number] [place] [address] Creatinine [Mass/Vol] 0.70 mg/dL Low 0.73-1.22 [facility] Comment on above: Order Comment: Speci men Type: BLOOD SPECIMENOrdering Facility: [facility] Address: [address] [place] [address] Performed By: #### 1 9123-9, 01640-6 ####[facility] LABIA [id number] [place] [address] eGFRcr SerPlBld CKD-EPI 2020 104 mL/min/1.73m??? Normal >=60 [facility] Comment on above: Order Comment: Speci men Type: BLOOD SPECIMENOrdering Facility: [facility] Address: [address] [place] [address] Result Comment: Carly mated Glomerular Filtration Rate (eGFR) is calculated using the 2020 CKD-EPI creatinine equation. This equation utilizes serum creatinine, sex, and age as parameters. The creatinine assay has traceable calibration to isotope dilution-mass spectrometry. Refer to KDIGO guidelines for clinical interpretation. In patients with unstable renal function, e.g. those with acute kidney injury, the eGFR may not accurately reflect actual GFR. Performed By: #### 1 9123-9, 51491-4 ####[facility] LABCLIA [id number] [place] [address] Glucose [Mass/Vol] 131 mg/dL High 74-99 [facility] Comment on above: Order Comment: Speci men Type: BLOOD SPECIMENOrdering Facility: [facility] Address: [address] [place] [address] Result Comment: The [place] Diabetes Association (ADA) provides guidance for cutoff values for fasting glucose and random glucose. The ADA defines fasting as no caloric intake for at least 8 hours. Fasting plasma glucose results between 100 to 125 mg/dL indicate increased risk for diabetes (prediabetes).Fasting plasma glucose results greater than or equal to 126 mg/dL meet the criteria for diagnosis of diabetes. In the absence of unequivocal hyperglycemia, results should be confirmed by repeat testing. In a patient with classic symptoms of hyperglycemia or hyperglycemic crisis, random plasma glucose results greater than or equal to 200 mg/dL meet the criteria for diagnosis of diabetes.Reference: Standards of Medical Care in Diabetes 2016, [place] Diabetes Association. Diabetes Care. 2016.39(Suppl 1). Performed By: #### 1 9123-9, ####[facility] LABCLIA [id number] [place] [address] Potassium [Moles/Vol] 3.6 mmol/L Low 3.7-5.1 [facility] Comment on above: Order Comment: Speci men Type: BLOOD SPECIMENOrdering Facility: [facility] Address: [address] [place] [address] Performed By: #### 1 9123-9, ####[facility] LABCLIA [id number] [place] [address] Protein [Mass/Vol] 6.9 g/dL Normal 6.3-8.0 [facility] Comment on above: Order Comment: Speci men Type: BLOOD SPECIMENOrdering Facility: [facility] Address: [address] [id number] Performed By: #### 1 9123-9, ####[facility] LABCLIA [id number] [place] [address] Sodium [Moles/Vol] 136 mmol/L Normal 136-144 [facility] Comment on above: Order Comment: Speci men Type: BLOOD SPECIMENOrdering Facility: [facility] Address: [address] [place] [address] Performed By: #### 1 9123-9, 54690-3 ####[facility] LABCLIA [id number] [place] [address] Urea nitrogen [Mass/Vol] 8 mg/dL Low 9-24 [facility] Comment on above: Order Comment: Speci men Type: BLOOD SPECIMENOrdering Facility: [facility] Address: [address] [place] [address] Performed By: #### 1 9123-9, 14324-9 ####[facility] LABCLIA [id number] [place] [address] MAGNESIUMon 01-08-2025 Magnesium [Mass/Vol] 1.8 mg/dL 1.7 - 2 .3 mg/dL [facility] Magnesium SerPl-mCncon 01-08 Magnesium [Mass/Vol] 1.8 mg/dL Normal 1.7-2.3 [facility] Comment on above: Order Comment: Speci men Type: BLOOD SPECIMENOrdering Facility: [facility] Address: [address] [place] [address] Performed By: #### 1 9123-9, 66825-0 ####[facility] LABCLIA [id number] [place] [address] Magnesium [Mass/Vol]on 01-08 Interpretation and review of laboratory results Normal [facility] Basic Metabolic Panelon 12-13 Creatinine Clr Calc Pharmacy 106.80 Normal [facility] Comment on above: Result Comment: PERF ORMED BY: [facility] [address] [place] [address] PATHOLOGIST STATION INSPECTOR KELVIN HOLMAN M.D. Performed By: #### M G, HS TROP, DDIMER, TSH3, CMP, BNP, CBC, [id number], PTT, PT #### [facility] [address] [place] [address] [place] GFR/1.73 sq M.predicted MDRD (S/P/Bld) [Vol rate/Area] mL/min/{1.73_m2} Normal [facility] Comment on above: Performed By: #### M G, HS TROP, DDIMER, TSH3, CMP, BNP, CBC, [id number], PTT, PT #### [facility] [address] Basophils [#/volume] in Bloo d by Automated countOrdered By: Norah Whittaker on 01-06-2025 Basophils (Bld) [#/Vol] 0.1 10*3/uL Normal 0.0-0.2 [facility] Comment on above: Result Comment: PERF ORMED BY: [place] [address] PATHOLOGIST STATION INSPECTOR KELVIN HOLMAN M.D. Performed By: #### M G, HS TROP, DDIMER, TSH3, CMP, BNP, CBC, [id number], PTT, PT #### [place] [address] [place] Basophils/100 leukocytes in Blood by Automated countOrdered By: Norah Whittaker on 01-06-2025 Basophils/100 WBC (Bld) 0.7 % Normal . [facility] Comment on above: Performed By: #### M G, HS TROP, DDIMER, TSH3, CMP, BNP, CBC, [id number], PTT, PT #### [facility] [address] [place] [address] [place] Calcium [Mass/volume] in Ser um or PlasmaOrdered By: Norah Whittaker on 01-06-2025 Calcium [Mass/Vol] 7.4 mg/dL Low 8.6-10.3 [facility] Comment on above: Performed By: #### M G, HS TROP, DDIMER, TSH3, CMP, BNP, CBC, [id number], PTT, PT #### [facility] [address] [place] [address] [place] Carbon dioxide, total [Moles /volume] in Serum or PlasmaOrdered By: Norah Whittaker on 01-06-2025 CO2 [Moles/Vol] 22.6 mmol/L Normal 21.0-31.0 [facility] Comment on above: Performed By: #### M G, HS TROP, DDIMER, TSH3, CMP, BNP, CBC, [id number], PTT, PT #### [facility] [address] Chloride [Moles/volume] in S karishma or PlasmaOrdered By: Norah Whittaker on 01-06-2025 Chloride [Moles/Vol] 104 mmol/L Normal 98-107 [facility] Comment on above: Performed By: #### M G, HS TROP, DDIMER, TSH3, CMP, BNP, CBC, [id number], PTT, PT #### [address] Complete Blood Count Auto Di ffon 01-06-2025 Mean Corpuscular HGB Conc 32.6 g/dL Normal 32.5-35.6 [facility] Comment on above: Performed By: #### M G, HS TROP, DDIMER, TSH3, CMP, BNP, CBC, [id number], PTT, PT #### [address] NRBC% 0.0 /100{WBC} Normal 0-0.5 [facility] Comment on above: Performed By: #### M G, HS TROP, DDIMER, TSH3, CMP, BNP, CBC, [id number], PTT, PT #### [address] White Blood Count 14.9 [CFU]/mL High 4.1-10.5 [facility] Comment on above: Performed By: #### M G, HS TROP, DDIMER, TSH3, CMP, BNP, CBC, [id number], PTT, PT #### [address] Creatinine [Mass/volume] in Serum or PlasmaOrdered By: Norah Whittaker on 01-06-2025 Creatinine [Mass/Vol] 0.73 mg/dL Normal 0.70-1.30 [facility] Comment on above: Performed By: #### M G, HS TROP, DDIMER, TSH3, CMP, BNP, CBC, [id number], PTT, PT #### [facility] [address] Eosinophils [#/volume] in Bl ood by Automated countOrdered By: Norah Whittaker on 01-06-2025 Eosinophils (Bld) [#/Vol] 0.5 10*3/uL High 0.0-0.45 [facility] Comment on above: Performed By: #### M G, HS TROP, DDIMER, TSH3, CMP, BNP, CBC, [id number], PTT, PT #### [facility] [address] [place] [address] Eosinophils/100 leukocytes i n Blood by Automated countOrdered By: Norah Whittaker on 01-06-2025 Eosinophils/100 WBC (Bld) 3.4 % Normal . [facility] Comment on above: Performed By: #### M G, HS TROP, DDIMER, TSH3, CMP, BNP, CBC, [id number], PTT, PT #### [facility] [address] [place] [address] Erythrocyte distribution wid th [Ratio] by Automated countOrdered By: Norah Whittaker on 01-06-2025 Erythrocyte distribution width (RBC) [Ratio] 15.8 % High 12.0-14.8 [facility] Comment on above: Performed By: #### M G, HS TROP, DDIMER, TSH3, CMP, BNP, CBC, [id number], PTT, PT #### [facility] [address] [place] [address] Erythrocytes [#/volume] in B lood by Automated countOrdered By: Norah Whittaker on 01-06-2025 RBC (Bld) [#/Vol] 3.21 10*6/uL Low 3.90-5.60 [facility] Comment on above: Performed By: #### M G, HS TROP, DDIMER, TSH3, CMP, BNP, CBC, [id number], PTT, PT #### [facility] [address] Glucose [Mass/volume] in Ser um or PlasmaOrdered By: Norah Whittaker on 01-06-2025 Glucose [Mass/Vol] 92 mg/dL Normal 70-100 [facility] Comment on above: ADA recommended refe rence rangeRandom Glucose Reference Range is dependent on time and content of last meal. Glucose of more than 200 mg/dL in a nonstressed, ambulatory subject supports the diagnosis of Diabetes Mellitus. Result Comment: Strong om Glucose Reference Range is dependent on time and content of last meal. Glucose of more than 200 mg/dL in a nonstressed, ambulatory subject supports the diagnosis of Diabetes Mellitus. ADA recommended reference range Performed By: #### M G, HS TROP, DDIMER, TSH3, CMP, BNP, CBC, [id number], PTT, PT #### [facility] [address] [place] [address] Hematocrit [Volume Fraction] of Blood by Automated countOrdered By: Norah Whittaker on 01-06-2025 Hematocrit (Bld) [Volume fraction] 26.3 % Low 38.8-50.0 [facility] Comment on above: Performed By: #### M G, HS TROP, DDIMER, TSH3, CMP, BNP, CBC, [id number], PTT, PT #### [address] Hemoglobin [Mass/volume] in BloodOrdered By: Norah Whittaker on 01-06-2025 Hemoglobin (Bld) [Mass/Vol] 8.6 g/dL Low 13.0-17.0 [facility] Comment on above: Performed By: #### M G, HS TROP, DDIMER, TSH3, CMP, BNP, CBC, [id number], PTT, PT #### [address] Leukocytes [#/volume] correc abe for nucleated erythrocytes in Blood by Automated counOrdered By: Norah Whittaker on 01-06-2025 WBC corrected for nucl RBC Auto (Bld) [#/Vol] 14.9 10*3/uL High 4.1-10.5 [facility] Leukocytes [#/volume] in Blo od by Automated countOrdered By: Norah Whittaker on 01-06-2025 WBC (Bld) [#/Vol] 14.9 10*3/uL High 4.1-10.5 [facility] Comment on above: Performed By: #### M G, HS TROP, DDIMER, TSH3, CMP, BNP, CBC, [id number], PTT, PT #### [facility] [address] [place] [address] [place] Lymphocytes [#/volume] in Bl ood by Automated countOrdered By: Norah Whittaker on 01-06-2025 Lymphocytes (Bld) [#/Vol] 1.2 10*3/uL Normal 1.00-4.8 [facility] Comment on above: Performed By: #### M G, HS TROP, DDIMER, TSH3, CMP, BNP, CBC, [id number], PTT, PT #### [facility] [address] [place] [address] [place] Lymphocytes/100 leukocytes i n Blood by Automated countOrdered By: Norah Whittaker on 01-06-2025 Lymphocytes/100 WBC (Bld) 8.3 % Normal . [facility] Comment on above: Performed By: #### M G, HS TROP, DDIMER, TSH3, CMP, BNP, CBC, [id number], PTT, PT #### [facility] [address] [place] [address] [place] MCH [Entitic mass] by Automa abe countOrdered By: Norah Whittaker on 01-06-2025 MCH (RBC) [Entitic mass] 26.8 pg Low 27.5-35.2 [facility] Comment on above: Performed By: #### M G, HS TROP, DDIMER, TSH3, CMP, BNP, CBC, [id number], PTT, PT #### [facility] [address] [place] [address] [place] MCHC Auto (RBC) [Mass/Vol]Or dered By: Norah Whittaker on 01-06-2025 MCHC (RBC) [Mass/Vol] 32.6 g/dL 32.5-35.6 [facility] MCV [Entitic volume] by Auto mated countOrdered By: Norah Whittaker on 01-06-2025 MCV (RBC) [Entitic vol] 82.1 fL Low 83.5-101 [facility] Comment on above: Performed By: #### M G, HS TROP, DDIMER, TSH3, CMP, BNP, CBC, [id number], PTT, PT #### [facility] [address] [place] [address] [place] Monocytes [#/volume] in Bloo d by Automated countOrdered By: Norah Whittaker on 01-06-2025 Monocytes (Bld) [#/Vol] 0.9 10*3/uL High 0.0-0.8 [facility] Comment on above: Performed By: #### M G, HS TROP, DDIMER, TSH3, CMP, BNP, CBC, [id number], PTT, PT #### [facility] [address] [place] [address] [place] Monocytes/100 leukocytes in Blood by Automated countOrdered By: Norah Whittaker on 01-06-2025 Monocytes/100 WBC (Bld) 6.0 % Normal . [facility] Comment on above: Performed By: #### M G, HS TROP, DDIMER, TSH3, CMP, BNP, CBC, [id number], PTT, PT #### [facility] [address] [place] [address] [place] Neutrophils [#/volume] in Bl ood by Automated countOrdered By: Norah Whittaker on 01-06-2025 Neutrophils (Bld) [#/Vol] 12.2 10*3/uL High 1.8-7.7 [facility] Comment on above: Performed By: #### M G, HS TROP, DDIMER, TSH3, CMP, BNP, CBC, [id number], PTT, PT #### [facility] [address] [place] [id number] [place] Neutrophils/100 leukocytes i n Blood by Automated countOrdered By: Norah Whittaker on 01-06-2025 Neutrophils/100 WBC (Bld) 81.6 % Normal . [facility] Comment on above: Performed By: #### M G, HS TROP, DDIMER, TSH3, CMP, BNP, CBC, [id number], PTT, PT #### [facility] [address] No Panel InformationOrdered By: Norah Whittaker on 01-06-2025 Estimated GFR (CKD-EPI) > 60.0 mL/Min [facility] Creatinine Clearance (Chem 106.80 [facility] Nucleated erythrocytes [Pres ence] in Blood by Automated countOrdered By: Norah Whittaker on 01-06-2025 Nucleated RBC Auto Ql (Bld) 0.0 /100{WBC} 0-0.5 [facility] Platelet mean volume [Entiti c volume] in Blood by Automated countOrdered By: Norah Whittaker on 01-06-2025 Platelet mean volume (Bld) [Entitic vol] 7.6 fL Normal 6.6-10.1 [facility] Comment on above: Performed By: #### M G, HS TROP, DDIMER, TSH3, CMP, BNP, CBC, [id number], PTT, PT #### [facility] [address] [place] [address] [place] Platelets [#/volume] in Bloo d by Automated countOrdered By: Norah Whittaker on 01-06-2025 Platelets (Bld) [#/Vol] 272 10*3/uL Normal 150-450 [facility] Comment on above: Performed By: #### M G, HS TROP, DDIMER, TSH3, CMP, BNP, CBC, [id number], PTT, PT #### [facility] [address] [place] [address] [place] Potassium [Moles/volume] in Serum or PlasmaOrdered By: Norah Whittaker on 01-06-2025 Potassium [Moles/Vol] 3.2 mmol/L Low 3.5-5.1 [facility] Comment on above: Performed By: #### M G, HS TROP, DDIMER, TSH3, CMP, BNP, CBC, [id number], PTT, PT #### [address] Serum or plasma anion gap de terminationOrdered By: Norah Whittaker on 01-06-2025 Anion gap [Moles/Vol] 12.6 mmol/L Normal 6.0-15.0 [facility] Comment on above: Performed By: #### M G, HS TROP, DDIMER, TSH3, CMP, BNP, CBC, [id number], PTT, PT #### [facility] [address] [place] [address] Sodium [Moles/volume] in Ser um or PlasmaOrdered By: Norah Whittaker on 01-06-2025 Sodium [Moles/Vol] 136 mmol/L Normal 136-145 [facility] Comment on above: Performed By: #### M G, HS TROP, DDIMER, TSH3, CMP, BNP, CBC, [id number], PTT, PT #### [facility] [address] [place] [address] Urea nitrogen [Mass/volume] in Serum or PlasmaOrdered By: Norah Whittaker on 01-06-2025 Urea nitrogen [Mass/Vol] 4 mg/dL Low 7- [facility] Comment on above: Performed By: #### M G, HS TROP, DDIMER, TSH3, CMP, BNP, CBC, [id number], PTT, PT #### [address] Aerobic Cultureon 01-05-2025 Aerobic Culture Light Normal Respira tory Felisa 2 Days Gram Stain Result 1+ White Blood Cells 1+ Epithelial Cells Rare Gram Positive Bacilli PERFORMED BY: [place] [address] PATHOLOGIST STATION INSPECTOR KELVIN HOLMAN M.D. Normal [facility] Comment on above: Performed By: #### M G, HS TROP, DDIMER, TSH3, CMP, BNP, CBC, [id number], PTT, PT #### [facility] [address] Aerobic cultureOrdered By: Mike Whittaker on 01-05-2025 Bacteria identified Aer cx Nom (Unsp spec) 2 Days [facility] Basic Metabolic Panelon 12-13 Anion gap [Moles/Vol] 9.9 mmol/L Normal 6.0-15.0 [facility] Comment on above: Performed By: #### M G, HS TROP, DDIMER, TSH3, CMP, BNP, CBC, [id number], PTT, PT #### [facility] [address] Calcium [Mass/Vol] 7.8 mg/dL Low 8.6-10.3 [facility] Comment on above: Performed By: #### M G, HS TROP, DDIMER, TSH3, CMP, BNP, CBC, [id number], PTT, PT #### [address] Chloride [Moles/Vol] 109 mmol/L High 98-107 [facility] Comment on above: Performed By: #### M G, HS TROP, DDIMER, TSH3, CMP, BNP, CBC, [id number], PTT, PT #### [facility] [address] CO2 [Moles/Vol] 23.7 mmol/L Normal 21.0-31.0 [facility] Comment on above: Performed By: #### M G, HS TROP, DDIMER, TSH3, CMP, BNP, CBC, [id number], PTT, PT #### [facility] [address] Creatinine [Mass/Vol] 0.90 mg/dL Normal 0.70-1.30 [facility] Comment on above: Performed By: #### M G, HS TROP, DDIMER, TSH3, CMP, BNP, CBC, [id number], PTT, PT #### [facility] [address] Creatinine Clr Calc Pharmacy 86.63 Normal [facility] Comment on above: Result Comment: PERF ORMED BY: [place] [address] PATHOLOGIST STATION INSPECTOR KELVIN HOLMAN M.D. Performed By: #### M G, HS TROP, DDIMER, TSH3, CMP, BNP, CBC, [id number], PTT, PT #### [place] [address] [place] GFR/1.73 sq M.predicted MDRD (S/P/Bld) [Vol rate/Area] mL/min/{1.73_m2} Normal [facility] Comment on above: Performed By: #### M G, HS TROP, DDIMER, TSH3, CMP, BNP, CBC, [id number], PTT, PT #### [address] Glucose [Mass/Vol] 92 mg/dL Normal 70-100 [facility] Comment on above: Result Comment: [facility] Glucose Reference Range is dependent on time and content of last meal. Glucose of more than 200 mg/dL in a nonstressed, ambulatory subject supports the diagnosis of Diabetes Mellitus. ADA recommended reference range Performed By: #### M G, HS TROP, DDIMER, TSH3, CMP, BNP, CBC, [id number], PTT, PT #### [address] Potassium [Moles/Vol] 3.6 mmol/L Normal 3.5-5.1 [facility] Comment on above: Performed By: #### M G, HS TROP, DDIMER, TSH3, CMP, BNP, CBC, [id number], PTT, PT #### [place] [address] [place] Sodium [Moles/Vol] 139 mmol/L Normal 136-145 [facility] Comment on above: Performed By: #### M G, HS TROP, DDIMER, TSH3, CMP, BNP, CBC, [id number], PTT, PT #### [place] [address] [place] Urea nitrogen [Mass/Vol] 6 mg/dL Low 7-25 [facility] Comment on above: Performed By: #### M G, HS TROP, DDIMER, TSH3, CMP, BNP, CBC, [id number], PTT, PT #### [address] CNPNon 01-05-2025 CNPN Normal [facility] Complete Blood Count Auto Di ffon 01-05-2025 Basophils (Bld) [#/Vol] 0.1 10*3/uL Normal 0.0-0.2 [facility] Comment on above: Result Comment: PERF ORMED BY: [place] [address] PATHOLOGIST STATION INSPECTOR KELVIN HOLMAN M.D. Performed By: #### M G, HS TROP, DDIMER, TSH3, CMP, BNP, CBC, [id number], PTT, PT #### [address] Basophils/100 WBC (Bld) 0.4 % Normal . [facility] Comment on above: Performed By: #### M G, HS TROP, DDIMER, TSH3, CMP, BNP, CBC, [id number], PTT, PT #### [address] Eosinophils (Bld) [#/Vol] 0.5 10*3/uL High 0.0-0.45 [facility] Comment on above: Performed By: #### M G, HS TROP, DDIMER, TSH3, CMP, BNP, CBC, [id number], PTT, PT #### [address] Eosinophils/100 WBC (Bld) 4.2 % Normal . [facility] Comment on above: Performed By: #### M G, HS TROP, DDIMER, TSH3, CMP, BNP, CBC, [id number], PTT, PT #### [address] Erythrocyte distribution width (RBC) [Ratio] 15.7 % High 12.0-14.8 [facility] Comment on above: Performed By: #### M G, HS TROP, DDIMER, TSH3, CMP, BNP, CBC, [id number], PTT, PT #### [address] Hematocrit (Bld) [Volume fraction] 27.5 % Low 38.8-50.0 [facility] Comment on above: Performed By: #### M G, HS TROP, DDIMER, TSH3, CMP, BNP, CBC, [id number], PTT, PT #### 01 [address] Hemoglobin (Bld) [Mass/Vol] 8.8 g/dL Low 13.0-17.0 [facility] Comment on above: Performed By: #### M G, HS TROP, DDIMER, TSH3, CMP, BNP, CBC, [id number], PTT, PT #### [address] Lymphocytes (Bld) [#/Vol] 1.1 10*3/uL Normal 1.00-4.8 [facility] Comment on above: Performed By: #### M G, HS TROP, DDIMER, TSH3, CMP, BNP, CBC, [id number], PTT, PT #### [address] Lymphocytes/100 WBC (Bld) 9.0 % Normal . [facility] Comment on above: Performed By: #### M G, HS TROP, DDIMER, TSH3, CMP, BNP, CBC, [id number], PTT, PT #### [address] MCH (RBC) [Entitic mass] 26.8 pg Low 27.5-35.2 [facility] Comment on above: Performed By: #### M G, HS TROP, DDIMER, TSH3, CMP, BNP, CBC, [id number], PTT, PT #### [address] MCV (RBC) [Entitic vol] 83.3 fL Low 83.5-101 [facility] Comment on above: Performed By: #### M G, HS TROP, DDIMER, TSH3, CMP, BNP, CBC, [id number], PTT, PT #### [facility] [address] [place] [address] Mean Corpuscular HGB Conc 32.2 g/dL Low 32.5-35.6 [facility] Comment on above: Performed By: #### M G, HS TROP, DDIMER, TSH3, CMP, BNP, CBC, [id number], PTT, PT #### [facility] [address] [place] [address] Monocytes (Bld) [#/Vol] 1.1 10*3/uL High 0.0-0.8 [facility] Comment on above: Performed By: #### M G, HS TROP, DDIMER, TSH3, CMP, BNP, CBC, [id number], PTT, PT #### [address] Monocytes/100 WBC (Bld) 8.7 % Normal . [facility] Comment on above: Performed By: #### M G, HS TROP, DDIMER, TSH3, CMP, BNP, CBC, [id number], PTT, PT #### [address] Neutrophils (Bld) [#/Vol] 9.8 10*3/uL High 1.8-7.7 [facility] Comment on above: Performed By: #### M G, HS TROP, DDIMER, TSH3, CMP, BNP, CBC, [id number], PTT, PT #### [facility] [address] [place] [address] Neutrophils/100 WBC (Bld) 77.7 % Normal . [facility] Comment on above: Performed By: #### M G, HS TROP, DDIMER, TSH3, CMP, BNP, CBC, [id number], PTT, PT #### [facility] [address] [place] [address] NRBC% 0.1 /100{WBC} Normal 0-0.5 [facility] Comment on above: Performed By: #### M G, HS TROP, DDIMER, TSH3, CMP, BNP, CBC, [id number], PTT, PT #### [address] Platelet mean volume (Bld) [Entitic vol] 7.8 fL Normal 6.6-10.1 [facility] Comment on above: Performed By: #### M G, HS TROP, DDIMER, TSH3, CMP, BNP, CBC, [id number], PTT, PT #### [address] Platelets (Bld) [#/Vol] 251 10*3/uL Normal 150-450 [facility] Comment on above: Performed By: #### M G, HS TROP, DDIMER, TSH3, CMP, BNP, CBC, [id number], PTT, PT #### [address] RBC (Bld) [#/Vol] 3.30 10*6/uL Low 3.90-5.60 [facility] Comment on above: Performed By: #### M G, HS TROP, DDIMER, TSH3, CMP, BNP, CBC, [id number], PTT, PT #### [address] WBC (Bld) [#/Vol] 12.6 10*3/uL High 4.1-10.5 [facility] Comment on above: Performed By: #### M G, HS TROP, DDIMER, TSH3, CMP, BNP, CBC, [id number], PTT, PT #### [address] White Blood Count 12.6 [CFU]/mL High 4.1-10.5 [facility] Comment on above: Performed By: #### M G, HS TROP, DDIMER, TSH3, CMP, BNP, CBC, [id number], PTT, PT #### [address] Gram stain microscopyOrdered By: Norah Whittaker on 01-05-2025 Microscopic observation Gram stain Nom (Unsp spec) [facility] BNP ser/plasOrdered By: Norah Whittaker on 01-04-2025 Natriuretic peptide B (Bld) [Mass/Vol] 124.0 pg/mL High 5-100 [facility] Comment on above: Result Comment: PERF ORMED BY: [place] [address] PATHOLOGIST STATION INSPECTOR KELVIN HOLMAN M.D. Performed By: #### B CYCLE CONSULTANT #### [address] Basic Metabolic Panelon 12-13 Anion gap [Moles/Vol] 10.7 mmol/L Normal 6.0-15.0 [facility] Comment on above: Performed By: #### M G, HS TROP, DDIMER, TSH3, CMP, BNP, CBC, [id number], PTT, PT #### [address] Calcium [Mass/Vol] 7.8 mg/dL Low 8.6-10.3 [facility] Comment on above: Performed By: #### M G, HS TROP, DDIMER, TSH3, CMP, BNP, CBC, [id number], PTT, PT #### [address] Chloride [Moles/Vol] 107 mmol/L Normal 98-107 [facility] Comment on above: Performed By: #### M G, HS TROP, DDIMER, TSH3, CMP, BNP, CBC, [id number], PTT, PT #### [address] CO2 [Moles/Vol] 23.6 mmol/L Normal 21.0-31.0 [facility] Comment on above: Performed By: #### M G, HS TROP, DDIMER, TSH3, CMP, BNP, CBC, [id number], PTT, PT #### [facility] [address] Creatinine [Mass/Vol] 0.79 mg/dL Normal 0.70-1.30 [facility] Comment on above: Performed By: #### M G, HS TROP, DDIMER, TSH3, CMP, BNP, CBC, [id number], PTT, PT #### [facility] [address] [place] [address] [place] Creatinine Clr Calc Pharmacy 98.47 Normal [facility] Comment on above: Result Comment: PERF ORMED BY: [place] [address] PATHOLOGIST STATION INSPECTOR KELVIN HOLMAN M.D. Performed By: #### M G, HS TROP, DDIMER, TSH3, CMP, BNP, CBC, [id number], PTT, PT #### [address] GFR/1.73 sq M.predicted MDRD (S/P/Bld) [Vol rate/Area] mL/min/{1.73_m2} Normal [facility] Comment on above: Performed By: #### M G, HS TROP, DDIMER, TSH3, CMP, BNP, CBC, [id number], PTT, PT #### [address] Glucose [Mass/Vol] 79 mg/dL Normal 70-100 [facility] Comment on above: Result Comment: [facility] Glucose Reference Range is dependent on time and content of last meal. Glucose of more than 200 mg/dL in a nonstressed, ambulatory subject supports the diagnosis of Diabetes Mellitus. ADA recommended reference range Performed By: #### M G, HS TROP, DDIMER, TSH3, CMP, BNP, CBC, [id number], PTT, PT #### [facility] [address] Potassium [Moles/Vol] 3.3 mmol/L Low 3.5-5.1 [facility] Comment on above: Performed By: #### M G, HS TROP, DDIMER, TSH3, CMP, BNP, CBC, [id number], PTT, PT #### [address] Sodium [Moles/Vol] 138 mmol/L Normal 136-145 [facility] Comment on above: Performed By: #### M G, HS TROP, DDIMER, TSH3, CMP, BNP, CBC, [id number], PTT, PT #### [address] Urea nitrogen [Mass/Vol] 7 mg/dL Normal 7-25 [facility] Comment on above: Performed By: #### M G, HS TROP, DDIMER, TSH3, CMP, BNP, CBC, [id number], PTT, PT #### [address] CNPNon 01-04-2025 CNPN Normal [facility] Complete Blood Count Auto Di ffon 01-04-2025 Basophils (Bld) [#/Vol] 0.0 10*3/uL Normal 0.0-0.2 [facility] Comment on above: Result Comment: PERF ORMED BY: [place] [address] PATHOLOGIST STATION INSPECTOR KELVIN HOLMAN M.D. Performed By: #### M G, HS TROP, DDIMER, TSH3, CMP, BNP, CBC, [id number], PTT, PT #### [address] Basophils/100 WBC (Bld) 0.3 % Normal . [facility] Comment on above: Performed By: #### M G, HS TROP, DDIMER, TSH3, CMP, BNP, CBC, [id number], PTT, PT #### [address] Eosinophils (Bld) [#/Vol] 0.5 10*3/uL High 0.0-0.45 [facility] Comment on above: Performed By: #### M G, HS TROP, DDIMER, TSH3, CMP, BNP, CBC, [id number], PTT, PT #### [address] Eosinophils/100 WBC (Bld) 3.6 % Normal . [facility] Comment on above: Performed By: #### M G, HS TROP, DDIMER, TSH3, CMP, BNP, CBC, [id number], PTT, PT #### [address] Erythrocyte distribution width (RBC) [Ratio] 16.1 % High 12.0-14.8 [facility] Comment on above: Performed By: #### M G, HS TROP, DDIMER, TSH3, CMP, BNP, CBC, [id number], PTT, PT #### [address] Hematocrit (Bld) [Volume fraction] 28.5 % Low 38.8-50.0 [facility] Comment on above: Performed By: #### M G, HS TROP, DDIMER, TSH3, CMP, BNP, CBC, [id number], PTT, PT #### [address] Hemoglobin (Bld) [Mass/Vol] 9.0 g/dL Low 13.0-17.0 [facility] Comment on above: Performed By: #### M G, HS TROP, DDIMER, TSH3, CMP, BNP, CBC, [id number], PTT, PT #### [address] Lymphocytes (Bld) [#/Vol] 1.1 10*3/uL Normal 1.00-4.8 [facility] Comment on above: Performed By: #### M G, HS TROP, DDIMER, TSH3, CMP, BNP, CBC, [id number], PTT, PT #### [address] Lymphocytes/100 WBC (Bld) 7.5 % Normal . [facility] Comment on above: Performed By: #### M G, HS TROP, DDIMER, TSH3, CMP, BNP, CBC, [id number], PTT, PT #### [address] MCH (RBC) [Entitic mass] 26.7 pg Low 27.5-35.2 [facility] Comment on above: Performed By: #### M G, HS TROP, DDIMER, TSH3, CMP, BNP, CBC, [id number], PTT, PT #### [address] MCV (RBC) [Entitic vol] 84.2 fL Normal 83.5-101 [facility] Comment on above: Performed By: #### M G, HS TROP, DDIMER, TSH3, CMP, BNP, CBC, [id number], PTT, PT #### [address] Mean Corpuscular HGB Conc 31.8 g/dL Low 32.5-35.6 [facility] Comment on above: Performed By: #### M G, HS TROP, DDIMER, TSH3, CMP, BNP, CBC, [id number], PTT, PT #### [address] Monocytes (Bld) [#/Vol] 0.8 10*3/uL Normal 0.0-0.8 [facility] Comment on above: Performed By: #### M G, HS TROP, DDIMER, TSH3, CMP, BNP, CBC, [id number], PTT, PT #### [address] Monocytes/100 WBC (Bld) 5.4 % Normal . [facility] Comment on above: Performed By: #### M G, HS TROP, DDIMER, TSH3, CMP, BNP, CBC, [id number], PTT, PT #### [address] Neutrophils (Bld) [#/Vol] 12.1 10*3/uL High 1.8-7.7 [facility] Comment on above: Performed By: #### M G, HS TROP, DDIMER, TSH3, CMP, BNP, CBC, [id number], PTT, PT #### [address] Neutrophils/100 WBC (Bld) 83.2 % Normal . [facility] Comment on above: Performed By: #### M G, HS TROP, DDIMER, TSH3, CMP, BNP, CBC, [id number], PTT, PT #### [address] NRBC% 0.0 /100{WBC} Normal 0-0.5 [facility] Comment on above: Performed By: #### M G, HS TROP, DDIMER, TSH3, CMP, BNP, CBC, [id number], PTT, PT #### [address] Platelet mean volume (Bld) [Entitic vol] 7.9 fL Normal 6.6-10.1 [facility] Comment on above: Performed By: #### M G, HS TROP, DDIMER, TSH3, CMP, BNP, CBC, [id number], PTT, PT #### [address] Platelets (Bld) [#/Vol] 281 10*3/uL Normal 150-450 [facility] Comment on above: Performed By: #### M G, HS TROP, DDIMER, TSH3, CMP, BNP, CBC, [id number], PTT, PT #### [address] RBC (Bld) [#/Vol] 3.38 10*6/uL Low 3.90-5.60 [facility] Comment on above: Performed By: #### M G, HS TROP, DDIMER, TSH3, CMP, BNP, CBC, [id number], PTT, PT #### [address] WBC (Bld) [#/Vol] 14.5 10*3/uL High 4.1-10.5 [facility] Comment on above: Performed By: #### M G, HS TROP, DDIMER, TSH3, CMP, BNP, CBC, [id number], PTT, PT #### [address] White Blood Count 14.5 [CFU]/mL High 4.1-10.5 [facility] Comment on above: Performed By: #### M G, HS TROP, DDIMER, TSH3, CMP, BNP, CBC, [id number], PTT, PT #### [facility] [address] Magnesium [Mass/volume] in S karishma or PlasmaOrdered By: Norah Whittaker on 01-04-2025 Magnesium [Mass/Vol] 1.9 mg/dL Normal 1.9-2.7 [facility] Comment on above: Result Comment: PERF ORMED BY: [place] [address] PATHOLOGIST STATION INSPECTOR KELVIN HOLMAN M.D. Performed By: #### M G, HS TROP, DDIMER, TSH3, CMP, BNP, CBC, [id number], PTT, PT #### [address] X-ray reportOrdered By: Neri Lewis on 01-04-2025 Study report [facility] [place] [address] [place] [address] XRay Report Signed Patient: Jatin Koch II MR#: [id number] : 1960 Acct:[id number] Age/Sex: 64 / M ADM Date: 5 Loc: Room: [address] [place] [address] Type: ADM IN Attending Dr: Norah Whittaker MD Copies to: Norah Whittaker MD~ Ordering Provider: Norha Whittaker MD Date of Service: 01/04/25 XR/XR chest 2V*: sob Chest 2 views CLINICAL HISTORY: Shortness of breath and cough. COMPARISON: Chest 01/03/2025 FINDINGS: Pacemaker device in place. Heart and mediastinal structures appear unchanged. Lobar consolidation right lower lobe similar to the prior study. No pneumothorax or free air. Questionable small right pleural effusion. XR/XR chest 2V* IMPRESSION: LOBAR CONSOLIDATION INVOLVING THE RIGHT LOWER LOBE WITH POSSIBLE SMALL RIGHT PLEURAL EFFUSION SIMILAR TO THE PRIOR STUDY. Impression dictated by: Neftali Lewis Jr., D.O. 01/04/2025 3:42 PM Dictation Location: RADIO-PC-23 Transcribed By: TANESHA 01/04/25 154 Dictated By: Neftali Lewis Jr, DO 01/04/25 1541 Signed By: 01/04/25 1542 [facility] XR chest 2V*on 01-04-2025 XR chest 2V* [facility] [place] [address] [place] [address] XRay Report Signed Patient: Jatin Koch II MR#: [id number] : 1960 Acct:[id number] Age/Sex: 64 / M ADM Date: 01/02/25 Loc: Room: [address] [place] [address] Type: ADM IN Attending Dr: Norah Whittaker MD Copies to: Norah Whittaker MD Ordering Provider: Norah Whittaker MD Date of Service: 01/04/25 XR/XR chest 2V*: sob Chest 2 views CLINICAL HISTORY: Shortness of breath and cough. COMPARISON: Chest 01/03/2025 FINDINGS: Pacemaker device in place. Heart and mediastinal structures appear unchanged. Lobar consolidation right lower lobe similar to the prior study. No pneumothorax or free air. Questionable small right pleural effusion. XR/XR chest 2V* IMPRESSION: LOBAR CONSOLIDATION INVOLVING THE RIGHT LOWER LOBE WITH POSSIBLE SMALL RIGHT PLEURAL EFFUSION SIMILAR TO THE PRIOR STUDY. Impression dictated by: Neftali Lewis Jr., D.O. 01/04/2025 3:42 PM Dictation Location: RADIO-PC-23 Transcribed By: TANESHA 01/04/25 154 Dictated By: Neftali Lewis Jr, DO 01/04/25 154 Signed By: 01/04/25 1542 Normal [facility] Basic Metabolic Panel 12-13 Anion gap [Moles/Vol] 11.4 mmol/L Normal 6.0-15.0 [facility] Comment on above: Performed By: #### M G, HS TROP, DDIMER, TSH3, CMP, BNP, CBC, [id number], PTT, PT #### [facility] [address] Calcium [Mass/Vol] 8.0 mg/dL Low 8.6-10.3 [facility] Comment on above: Performed By: #### M G, HS TROP, DDIMER, TSH3, CMP, BNP, CBC, [id number], PTT, PT #### [facility] [address] Chloride [Moles/Vol] 106 mmol/L Normal 98-107 [facility] Comment on above: Performed By: #### M G, HS TROP, DDIMER, TSH3, CMP, BNP, CBC, [id number], PTT, PT #### [address] CO2 [Moles/Vol] 20.8 mmol/L Low 21.0-31.0 [facility] Comment on above: Performed By: #### M G, HS TROP, DDIMER, TSH3, CMP, BNP, CBC, [id number], PTT, PT #### [address] Creatinine [Mass/Vol] 0.69 mg/dL Low 0.70-1.30 [facility] Comment on above: Performed By: #### M G, HS TROP, DDIMER, TSH3, CMP, BNP, CBC, [id number], PTT, PT #### [place] [address] [place] Creatinine Clr Calc Pharmacy 112.62 Normal [facility] Comment on above: Result Comment: PERF ORMED BY: [place] [address] PATHOLOGIST STATION INSPECTOR KELVIN HOLMAN M.D. Performed By: #### M G, HS TROP, DDIMER, TSH3, CMP, BNP, CBC, [id number], PTT, PT #### [facility] [address] GFR/1.73 sq M.predicted MDRD (S/P/Bld) [Vol rate/Area] mL/min/{1.73_m2} Normal [facility] Comment on above: Performed By: #### M G, HS TROP, DDIMER, TSH3, CMP, BNP, CBC, [id number], PTT, PT #### [address] Glucose [Mass/Vol] 136 mg/dL High 70-100 [facility] Comment on above: Result Comment: [facility] Glucose Reference Range is dependent on time and content of last meal. Glucose of more than 200 mg/dL in a nonstressed, ambulatory subject supports the diagnosis of Diabetes Mellitus. ADA recommended reference range Performed By: #### M G, HS TROP, DDIMER, TSH3, CMP, BNP, CBC, [id number], PTT, PT #### [address] Potassium [Moles/Vol] 4.2 mmol/L Normal 3.5-5.1 [facility] Comment on above: Performed By: #### M G, HS TROP, DDIMER, TSH3, CMP, BNP, CBC, [id number], PTT, PT #### [address] Sodium [Moles/Vol] 134 mmol/L Low 136-145 [facility] Comment on above: Performed By: #### M G, HS TROP, DDIMER, TSH3, CMP, BNP, CBC, [id number], PTT, PT #### [address] Urea nitrogen [Mass/Vol] 9 mg/dL Normal 7-25 [facility] Comment on above: Performed By: #### M G, HS TROP, DDIMER, TSH3, CMP, BNP, CBC, [id number], PTT, PT #### [address] CNPNon 01-03-2025 CNPN Normal [facility] Complete Blood Count Auto Di ffon 01-03-2025 Basophils (Bld) [#/Vol] 0.0 10*3/uL Normal 0.0-0.2 [facility] Comment on above: Result Comment: PERF ORMED BY: [place] [address] PATHOLOGIST STATION INSPECTOR KELVIN HOLMAN M.D. Performed By: #### M G, HS TROP, DDIMER, TSH3, CMP, BNP, CBC, [id number], PTT, PT #### [address] Basophils/100 WBC (Bld) 0.2 % Normal . [facility] Comment on above: Performed By: #### M G, HS TROP, DDIMER, TSH3, CMP, BNP, CBC, [id number], PTT, PT #### [place] [address] [place] Eosinophils (Bld) [#/Vol] 0.0 10*3/uL Normal 0.0-0.45 [facility] Comment on above: Performed By: #### M G, HS TROP, DDIMER, TSH3, CMP, BNP, CBC, [id number], PTT, PT #### [address] Eosinophils/100 WBC (Bld) 0.3 % Normal . [facility] Comment on above: Performed By: #### M G, HS TROP, DDIMER, TSH3, CMP, BNP, CBC, [id number], PTT, PT #### [address] Erythrocyte distribution width (RBC) [Ratio] 15.7 % High 12.0-14.8 [facility] Comment on above: Performed By: #### M G, HS TROP, DDIMER, TSH3, CMP, BNP, CBC, [id number], PTT, PT #### [address] Hematocrit (Bld) [Volume fraction] 28.7 % Low 38.8-50.0 [facility] Comment on above: Performed By: #### M G, HS TROP, DDIMER, TSH3, CMP, BNP, CBC, [id number], PTT, PT #### [address] Hemoglobin (Bld) [Mass/Vol] 9.4 g/dL Low 13.0-17.0 [facility] Comment on above: Performed By: #### M G, HS TROP, DDIMER, TSH3, CMP, BNP, CBC, [id number], PTT, PT #### [address] Lymphocytes (Bld) [#/Vol] 0.7 10*3/uL Low 1.00-4.8 [facility] Comment on above: Performed By: #### M G, HS TROP, DDIMER, TSH3, CMP, BNP, CBC, [id number], PTT, PT #### [address] Lymphocytes/100 WBC (Bld) 9.2 % Normal . [facility] Comment on above: Performed By: #### M G, HS TROP, DDIMER, TSH3, CMP, BNP, CBC, [id number], PTT, PT #### [address] MCH (RBC) [Entitic mass] 27.3 pg Low 27.5-35.2 [facility] Comment on above: Performed By: #### M G, HS TROP, DDIMER, TSH3, CMP, BNP, CBC, [id number], PTT, PT #### [address] MCV (RBC) [Entitic vol] 83.4 fL Low 83.5-101 T [facility] Comment on above: Performed By: #### M G, HS TROP, DDIMER, TSH3, CMP, BNP, CBC, [id number], PTT, PT #### [address] Mean Corpuscular HGB Conc 32.7 g/dL Normal 32.5-35.6 [facility] Comment on above: Performed By: #### M G, HS TROP, DDIMER, TSH3, CMP, BNP, CBC, [id number], PTT, PT #### [address] Monocytes (Bld) [#/Vol] 0.3 10*3/uL Normal 0.0-0.8 [facility] Comment on above: Performed By: #### M G, HS TROP, DDIMER, TSH3, CMP, BNP, CBC, [id number], PTT, PT #### [address] Monocytes/100 WBC (Bld) 3.1 % Normal . [facility] Comment on above: Performed By: #### M G, HS TROP, DDIMER, TSH3, CMP, BNP, CBC, [id number], PTT, PT #### [address] Neutrophils (Bld) [#/Vol] 7.0 10*3/uL Normal 1.8-7.7 [facility] Comment on above: Performed By: #### M G, HS TROP, DDIMER, TSH3, CMP, BNP, CBC, [id number], PTT, PT #### [address] Neutrophils/100 WBC (Bld) 87.2 % Normal . [facility] Comment on above: Performed By: #### M G, HS TROP, DDIMER, TSH3, CMP, BNP, CBC, [id number], PTT, PT #### [address] NRBC% 0.1 /100{WBC} Normal 0-0.5 [facility] Comment on above: Performed By: #### M G, HS TROP, DDIMER, TSH3, CMP, BNP, CBC, [id number], PTT, PT #### [address] Platelet mean volume (Bld) [Entitic vol] 7.9 fL Normal 6.6-10.1 [facility] Comment on above: Performed By: #### M G, HS TROP, DDIMER, TSH3, CMP, BNP, CBC, [id number], PTT, PT #### [address] Platelets (Bld) [#/Vol] 246 10*3/uL Normal 150-450 [facility] Comment on above: Performed By: #### M G, HS TROP, DDIMER, TSH3, CMP, BNP, CBC, [id number], PTT, PT #### [address] RBC (Bld) [#/Vol] 3.44 10*6/uL Low 3.90-5.60 [facility] Comment on above: Performed By: #### M G, HS TROP, DDIMER, TSH3, CMP, BNP, CBC, [id number], PTT, PT #### [address] WBC (Bld) [#/Vol] 8.0 10*3/uL Normal 4.1-10.5 [facility] Comment on above: Performed By: #### M G, HS TROP, DDIMER, TSH3, CMP, BNP, CBC, [id number], PTT, PT #### [address] White Blood Count 8.0 [CFU]/mL Normal 4.1-10.5 [facility] Comment on above: Performed By: #### M G, HS TROP, DDIMER, TSH3, CMP, BNP, CBC, [id number], PTT, PT #### [address] MRSA - MSSA Nasal PCRon 12-13 MRSA - MSSA Nasal PCR MRSA Result MRSA Negative MSSA Result MSSA Positive Real-time PCR Test performed by real-time PCR Reference Range Reference Range for all targets = Neg / Not Detected Reference Note 20 -- Reference Note 26 -- PERFORMED BY: [place] [address] PATHOLOGIST STATION INSPECTOR KELVIN HOLMAN M.D. Normal [facility] Comment on above: Performed By: #### M G, HS TROP, DDIMER, TSH3, CMP, BNP, CBC, [id number], PTT, PT #### [address] No Panel InformationOrdered By: Norah Whittaker on 01-03-2025 Nasal Screen MRSA/MSSA [facility] X-ray reportOrdered By: Matt Arroyo on 01-03-2025 Study report [facility] [place] [address] [place] [address] XRay Report Signed Patient: Jatin Koch II MR#: [id number] : 1960 Acct:[id number] Age/Sex: 64 / M ADM Date: 5 Loc: Room: [address] [place] [address] Type: ADM IN Attending Dr: Norah Whittaker MD Copies to: Norah Whittaker MD~ Ordering Provider: Norah Whittaker MD Date of Service: 01/03/25 XR/XR chest 2V*: Shortness of Breath/Dyspnea PA AND LATERAL CHEST: CLINICAL HISTORY: Shortness breath, syncope colon cancer, pneumonia COMPARISON: CTA chest 01/02/2025 FINDINGS: Left-sided pacemaker device. Right lung base mass. Minimal patchy right lung base opacities suggestive residual pneumonia administration the right basilar mass. Left lung is clear. XR/XR chest 2V* IMPRESSION: Mild residual right-sided airspace disease adjacent the known right-sided mass. Impression dictated by: Marcell Arroyo M.D. 01/03/2025 12:31 PM Dictation Location: [id number]-[id number] Transcribed By: TANESHA 01/03/25 1231 Dictated By: Marcell Arroyo MD 01/03/25 1230 Signed By: 01/03/25 1231 [facility] Work Phone: XR chest 2V*on 01-03-2025 XR chest 2V* [facility] [place] [address] XRay Report Signed Patient: Jatin Koch II MR#: [id number] : 1960 Acct:[id number] Age/Sex: 64 / M ADM Date: 01/02/25 Loc: Room: [address] [place] [address] Type: ADM IN Attending Dr: Norah Whittaker MD Copies to: Norah Whittaker MD Ordering Provider: Norah Whittaker MD Date of Service: 01/03/25 XR/XR chest 2V*: Shortness of Breath/Dyspnea PA AND LATERAL CHEST: CLINICAL HISTORY: Shortness breath, syncope colon cancer, pneumonia COMPARISON: CTA chest 01/02/2025 FINDINGS: Left-sided pacemaker device. Right lung base mass. Minimal patchy right lung base opacities suggestive residual pneumonia administration the right basilar mass. Left lung is clear. XR/XR chest 2V* IMPRESSION: Mild residual right-sided airspace disease adjacent the known right-sided mass. Impression dictated by: Marcell Arroyo M.D. 01/03/2025 12:31 PM Dictation Location: RADIO-PC-23 Transcribed By: TANESHA 01/03/25 1231 Dictated By: Marcell Arroyo MD 01/03/25 1230 Signed By: 01/03/25 1231 Normal [facility] Alanine aminotransferase [En zymatic activity/volume] in Serum or PlasmaOrdered By: Dominic Ryder on 01-02-2025 ALT [Catalytic activity/Vol] 9 U/L Normal [facility] Comment on above: Performed By: #### M G, HS TROP, DDIMER, TSH3, CMP, BNP, CBC, [id number], PTT, PT #### [facility] [address] Albumin [Mass/volume] in Ser um or Plasma by Bromocresol green (BCG) dye binding methoOrdered By: Domiinc Ryder on 01-02-2025 Albumin BCG dye [Mass/Vol] 3.0 g/dL Low 3.5-5.7 [facility] Alkaline phosphatase [Enzyma tic activity/volume] in Serum or PlasmaOrdered By: Dominic Ryder on 01-02-2025 ALP [Catalytic activity/Vol] 59 U/L Normal 34-104 [facility] Comment on above: Performed By: #### M G, HS TROP, DDIMER, TSH3, CMP, BNP, CBC, [id number], PTT, PT #### [address] Aspartate aminotransferase [ Enzymatic activity/volume] in Serum or PlasmaOrdered By: Dominic Ryder on 01-02-2025 AST [Catalytic activity/Vol] 13 U/L Normal 13-39 [facility] Comment on above: Performed By: #### M G, HS TROP, DDIMER, TSH3, CMP, BNP, CBC, [id number], PTT, PT #### [address] BNP ser/plasOrdered By: Skylar Ryder on 01-02-2025 Natriuretic peptide B (Bld) [Mass/Vol] 44.0 pg/mL Normal 5-100 [facility] Comment on above: Result Comment: PERF ORMED BY: [place] [address] PATHOLOGIST STATION INSPECTOR KELVIN HOLMAN M.D. Performed By: #### M G, HS TROP, DDIMER, TSH3, CMP, BNP, CBC, [id number], PTT, PT #### [place] [address] [place] Basophils [#/volume] in Bloo d by Automated countOrdered By: Dominic Ryder on 01-02-2025 Basophils (Bld) [#/Vol] 0.1 10*3/uL Normal 0.0-0.2 [facility] Comment on above: Result Comment: PERF ORMED BY: [place] [address] PATHOLOGIST STATION INSPECTOR KELVIN HOLMAN M.D. Performed By: #### M G, HS TROP, DDIMER, TSH3, CMP, BNP, CBC, [id number], PTT, PT #### [place] [address] [place] Basophils/100 leukocytes in Blood by Automated countOrdered By: Dominic Ryder on 01-02-2025 Basophils/100 WBC (Bld) 0.4 % Normal . [facility] Comment on above: Performed By: #### M G, HS TROP, DDIMER, TSH3, CMP, BNP, CBC, [id number], PTT, PT #### [facility] [address] [place] [address] Bilirubin.total [Mass/volume ] in Serum or PlasmaOrdered By: Dominic Ryder on 01-02-2025 Bilirubin [Mass/Vol] 0.6 mg/dL Normal 0.3-1.0 [facility] Comment on above: Performed By: #### M G, HS TROP, DDIMER, TSH3, CMP, BNP, CBC, [id number], PTT, PT #### [facility] [address] [place] [address] [place] Blood Cultureon 01-02-2025 Bacteria identified Cx Nom (Bld) NO GROWTH 5 DAYS PERFORMED BY: [place] [address] PATHOLOGIST STATION INSPECTOR KELVIN HOLMAN M.D. Normal [facility] Comment on above: Performed By: #### M G, HS TROP, DDIMER, TSH3, CMP, BNP, CBC, [id number], PTT, PT #### [facility] [address] [place] [address] Bacteria identified Cx Nom (Bld) NO GROWTH 5 DAYS PERFORMED BY: [address] [place] [address] PATHOLOGIST STATION INSPECTOR KELVIN HOLMAN M.D. Normal [facility] Comment on above: Performed By: #### M G, HS TROP, DDIMER, TSH3, CMP, BNP, CBC, [id number], PTT, PT #### [facility] [address] CBC W Auto Differential pane l (Bld)on 01-02-2025 Basophils (Bld) [#/Vol] 0.04 10*3/uL Normal <0.11 [facility] Comment on above: Order Comment: Speci men Type: BLOOD SPECIMENOrdering Facility: [facility] Address: [address] [place] [address] Performed By: #### 5 7021-8 ####[facility]CL[facility] [id number] [place] [address] Basophils/100 WBC (Bld) 0.3 % Normal [facility] Comment on above: Order Comment: Speci men Type: BLOOD SPECIMENOrdering Facility: [facility] Address: [address] [place] [address] Performed By: #### 5 7021-8 ####[facility]CL[facility] [id number] [place] [address] Differential cell count method Nom (Bld) Auto Normal [facility] Comment on above: Order Comment: Speci men Type: BLOOD SPECIMENOrdering Facility: [facility] Address: [address] [place] [address] Performed By: #### 5 7021-8 ####[facility] [id number] [place] [address] Eosinophils (Bld) [#/Vol] 0.52 10*3/uL High <0.46 [facility] Comment on above: Order Comment: Speci men Type: BLOOD SPECIMENOrdering Facility: [facility] Address: [address] [place] [address] Performed By: #### 5 7021-8 ####[facility] [id number] [place] [address] Eosinophils/100 WBC (Bld) 3.8 % Normal [facility] Comment on above: Order Comment: Speci men Type: BLOOD SPECIMENOrdering Facility: [facility] Address: [address] [place] [address] Performed By: #### 5 7021-8 ####[facility] [id number] [place] [address] Erythrocyte distribution width (RBC) [Ratio] 14.6 % Normal 11.5-15.0 [facility] Comment on above: Order Comment: Speci men Type: BLOOD SPECIMENOrdering Facility: [facility] Address: [address] [place] [address] Performed By: #### 5 7021-8 ####[facility] [id number] [place] [address] Hematocrit (Bld) [Volume fraction] 34.0 % Low 39.0-51.0 [facility] Comment on above: Order Comment: Speci men Type: BLOOD SPECIMENOrdering Facility: [facility] Address: [address] [place] [address] Performed By: #### 5 7021-8 ####[facility] [id number] [place] [address] Hemoglobin (Bld) [Mass/Vol] 10.5 g/dL Low 13.0-17.0 [facility] Comment on above: Order Comment: Speci men Type: BLOOD SPECIMENOrdering Facility: [facility] Address: [address] [place] [address] Performed By: #### 5 7021-8 ####[facility] [id number] [place] [address] Immature granulocytes (Bld) [#/Vol] 0.09 10*3/uL Normal <0.10 [facility] Comment on above: Order Comment: Speci men Type: BLOOD SPECIMENOrdering Facility: [facility] Address: [address] [place] [address] Performed By: #### 5 7021-8 ####[facility] [id number] [place] [address] Immature granulocytes/100 WBC (Bld) 0.7 % Normal [facility] Comment on above: Order Comment: Speci men Type: BLOOD SPECIMENOrdering Facility: [facility] Address: [address] [place] [address] Performed By: #### 5 7021-8 ####[facility] [id number] [place] [address] Lymphocytes (Bld) [#/Vol] 1.21 10*3/uL Normal 1.00-4.00 [facility] Comment on above: Order Comment: Speci men Type: BLOOD SPECIMENOrdering Facility: [facility] Address: [address] [place] [address] Performed By: #### 5 7021-8 ####[facility] [id number] [place] [address] Lymphocytes/100 WBC (Bld) 8.9 % Normal [facility] Comment on above: Order Comment: Speci men Type: BLOOD SPECIMENOrdering Facility: [facility] Address: [address] [place] [address] Performed By: #### 5 7021-8 ####[facility]CL[facility] [id number] [place] [address] MCH (RBC) [Entitic mass] 26.6 pg Normal 26.0-34.0 [facility] Comment on above: Order Comment: Speci men Type: BLOOD SPECIMENOrdering Facility: [facility] Address: [address] [place] [address] Performed By: #### 5 7021-8 ####[facility] [id number] [place] [address] MCHC (RBC) [Mass/Vol] 30.9 g/dL Normal 30.5-36.0 [facility] Comment on above: Order Comment: Speci men Type: BLOOD SPECIMENOrdering Facility: [facility] Address: [address] [place] [address] Performed By: #### 5 7021-8 ####[facility]CL[facility] [id number] [place] [address] MCV (RBC) [Entitic vol] 86.1 fL Normal 80.0-100.0 [facility] Comment on above: Order Comment: Speci men Type: BLOOD SPECIMENOrdering Facility: [facility] Address: [address] [place] [address] Performed By: #### 5 7021-8 ####[facility]CL[facility] [id number] [place] [address] Monocytes (Bld) [#/Vol] 0.63 10*3/uL Normal <0.87 [facility] Comment on above: Order Comment: Speci men Type: BLOOD SPECIMENOrdering Facility: [facility] Address: [address] [place] [address] Performed By: #### 5 7021-8 ####[facility] [id number] [place] [address] Monocytes/100 WBC (Bld) 4.6 % Normal [facility] Comment on above: Order Comment: Speci men Type: BLOOD SPECIMENOrdering Facility: [facility] Address: [address] [place] [address] Performed By: #### 5 7021-8 ####[facility] [id number] [place] [address] Neutrophils (Bld) [#/Vol] 11.15 10*3/uL High 1.45-7.50 [facility] Comment on above: Order Comment: Speci men Type: BLOOD SPECIMENOrdering Facility: [facility] Address: [address] [place] [address] Performed By: #### 5 7021-8 ####[facility]CL[facility] [id number] [place] [address] Neutrophils/100 WBC (Bld) 81.7 % Normal [facility] Comment on above: Order Comment: Speci men Type: BLOOD SPECIMENOrdering Facility: [facility] Address: [address] [place] [address] Performed By: #### 5 7021-8 ####[facility] [id number] [place] [address] Nucleated RBC (Bld) [#/Vol] 10*3/uL Normal <0.01 [facility] Comment on above: Order Comment: Speci men Type: BLOOD SPECIMENOrdering Facility: [facility] Address: [address] [place] [address] Performed By: #### 5 7021-8 ####[facility] [id number] [place] [address] Nucleated RBC/100 WBC (Bld) [Ratio] 0.0 /100 WBC Normal [facility] Comment on above: Order Comment: Speci men Type: BLOOD SPECIMENOrdering Facility: [facility] Address: [address] [place] [address] Performed By: #### 5 7021-8 ####[facility] [id number] [place] [address] Platelet mean volume (Bld) [Entitic vol] 9.3 fL Normal 9.0-12.7 [facility] Comment on above: Order Comment: Speci men Type: BLOOD SPECIMENOrdering Facility: [facility] Address: [address] [place] [address] Performed By: #### 5 7021-8 ####[facility] [id number] [place] [address] Platelets (Bld) [#/Vol] 312 10*3/uL Normal 150-400 [facility] Comment on above: Order Comment: Speci men Type: BLOOD SPECIMENOrdering Facility: [facility] Address: [address] [place] [address] Performed By: #### 5 7021-8 ####[facility] [id number] [place] [address] RBC (Bld) [#/Vol] 3.95 10*6/uL Low 4.20-6.00 [facility] Comment on above: Order Comment: Speci men Type: BLOOD SPECIMENOrdering Facility: [facility] Address: [address] [place], [place] [address] Performed By: #### 5 7021-8 ####[facility] LABIA [id number] [place] [address] WBC (Bld) [#/Vol] 13.64 10*3/uL High 3.70-11.00 [facility] Comment on above: Order Comment: Speci men Type: BLOOD SPECIMENOrdering Facility: [facility] Address: [address] [place] [address] Performed By: #### 5 7021-8 ####[facility] LABIA [id number] [place] [address] CNOVSPon 01-02-2025 CNOVSP Normal [facility] CT angio chest PE protocolon 01-02-2025 CT angio chest PE protocol [facility] Main [address] [address] [address] Scan Report Signed Patient: Jatin Koch II MR#: [id number] : 1960 Acct:[id number] Age/Sex: 64 / M ADM Date: 01/02/25 Loc: Room: [address] [place] [address] Type: ADM IN Attending Dr: Norah Whittaker MD Copies to: Norah Whittaker MD Ordering Provider: Norah Whittaker MD Date of Service: 01/02/25 CT/CT angio chest PE protocol: sob CTA Chest with PE protocol TECHNIQUE: Axial imaging with 2-D and 3-D reconstruction. 90cc of Isovue-[address] exam was performed using one or more the following dose reduction techniques: Automated exposure control, adjustment of the MA and/or Kv according to patient size, or use of the iterative reconstruction technique. History: Treatment for lung cancer. Chemotherapy today. Elevated d-dimer COMPARISON: None THYROID: Unremarkable TRACHEA AND BRONCHI: Patent ESOPHAGUS: Unremarkable. HEART: Within normal limits PERICARDIAL EFFUSION: None CORONARY ARTERY CALCIFICATION: None MEDIASTINUM: Large posterior subcarinal mediastinal mass identified. The descending thoracic aorta and left atrium and extends into the right lung base. The postobstructive changes likely. PULMONARY JERE: No hilar mass or adenopathy is seen. THORACIC AORTA Unremarkable PULMONARY EMBOLUS: None LUNG NODULE None LUNGS: Tree-in-bud nodularity of the right middle lobe present. PLEURAL EFFUSION: None PNEUMOTHORAX: No pneumothorax seen. CHEST WALL: No abnormality AXILLA: Unremarkable BONY STRUCTURES thoracic spondylosis. 9 mm lytic lesion adjacent to the T5 inferior endplate. UPPER ABDOMEN: Images of the upper abdomen are noncontributory. CT/CT angio chest PE protocol IMPRESSION: No acute pulmonary embolus. Large subcarinal mediastinal mass extending into the right lung base. Likely postobstructive changes of the right lower lobe. Tree-in-bud appearance of the right middle lobe suggesting infectious or inflammatory etiology. T5 lytic lesion. Malignancy cannot be excluded. Degenerative change. Impression dictated by: Kirk Mccann M.D. 01/02/2025 7:42 PM Dictation Location: [place] [address] Transcribed By: [facility] 01/02/251941 Dictated By: Kirk Mccann DO 01/02/251935 Signed By: 01/02/251941 Normal [facility] CT head/brain wo [facility] 01-02 CT head/brain [place] [address] CT Scan Report Signed Patient: Jatin Koch II MR#: [id number] : 1960 Acct:[id number] Age/Sex: 64 / M ADM Date: 01/02/25 Loc: ER Room: Type: [facility] ER Attending Dr: Copies to: Dominic Ryder PA-C Ordering Provider: Dominic Ryder PA-C Date of Service: 01/02/25 CT/CT head/brain wo con: weakness Unenhanced head CT TECHNIQUE: Contiguous axial imaging of the head. The CT exam was performed using one or more the following dose reduction techniques: Automated exposure control, adjustment of the MA and/or Kv according to patient size, or use of the iterative reconstruction technique. COMPARISON: None HISTORY: Weakness. Shortness of breath. History of lung cancer treatment today VENTRICLES: Within normal limits ATROPHY: Mild atrophy BRAIN PARENCHYMA: Decreased density of the white matter is most consistent with chronic small vessel disease. HEMORRHAGE: None HERNIATION: No mass effect or herniation INFARCTION: No recent vascular distribution infarction is seen. EXTRA-AXIAL FLUID COLLECTIONS None MIDBRAIN: Unremarkable ISELA: Unremarkable MEDULLA: Unremarkable SINUSES: Unremarkable ORBITS: Grossly unremarkable MASTOIDS: Unremarkable BONY STRUCTURES Intact ADDITIONAL FINDINGS: Atherosclerosis of carotid siphons and V4 segments CT/CT head/brain wo con IMPRESSION: No acute findings. Impression dictated by: Kirk Mccann M.D. 01/02/2025 3:04 PM Dictation Location: [place] [address] Transcribed By: [facility] 01/02/25 1504 Dictated By: Kirk Mccann DO 01/02/25 1503 Signed By: 01/02/25 1504 Normal [facility] Calcium [Mass/volume] in Ser um or PlasmaOrdered By: Dominic Ryder on 01-02-2025 Calcium [Mass/Vol] 8.3 mg/dL Low 8.6-10.3 [facility] Comment on above: Performed By: #### M G, HS TROP, DDIMER, TSH3, CMP, BNP, CBC, [id number], PTT, PT #### [facility] [address] Carbon dioxide, total [Moles /volume] in Serum or PlasmaOrdered By: Dominic Ryder on 01-02-2025 CO2 [Moles/Vol] 19.4 mmol/L Low 21.0-31.0 [facility] Comment on above: Performed By: #### M G, HS TROP, DDIMER, TSH3, CMP, BNP, CBC, [id number], PTT, PT #### [address] Chloride [Moles/volume] in S karishma or PlasmaOrdered By: Dominic Ryder on 01-02-2025 Chloride [Moles/Vol] 107 mmol/L Normal 98-107 [facility] Comment on above: Performed By: #### M G, HS TROP, DDIMER, TSH3, CMP, BNP, CBC, [id number], PTT, PT #### [address] Complete Blood Count Auto Di ffon 01-02-2025 Mean Corpuscular HGB Conc 32.0 g/dL Low 32.5-35.6 [facility] Comment on above: Performed By: #### M G, HS TROP, DDIMER, TSH3, CMP, BNP, CBC, [id number], PTT, PT #### [address] Monocytes/100 WBC (Bld) 24.21 % High 0.00-20.00 [facility] Comment on above: Result Comment: For adults in ED, MDW > 20.0 may be associated with a higher risk of sepsis during the first 12 hrs of hospital admission Performed By: #### M G, HS TROP, DDIMER, TSH3, CMP, BNP, CBC, [id number], PTT, PT #### [address] NRBC% 0.0 /100{WBC} Normal 0-0.5 [facility] Comment on above: Performed By: #### M G, HS TROP, DDIMER, TSH3, CMP, BNP, CBC, [id number], PTT, PT #### [address] White Blood Count 15.5 [CFU]/mL High 4.1-10.5 [facility] Comment on above: Performed By: #### M G, HS TROP, DDIMER, TSH3, CMP, BNP, CBC, [id number], PTT, PT #### [facility] [address] [place] [address] [facility] Comprehensive Metabolic Pane paul 01-02-2025 Albumin [Mass/Vol] 3.0 g/dL Low 3.5-5.7 [facility] Comment on above: Performed By: #### M G, HS TROP, DDIMER, TSH3, CMP, BNP, CBC, [id number], PTT, PT #### [facility] [address] [place] [id number] [place] Creatinine Clr Calc Pharmacy 99.34 Normal [facility] Comment on above: Performed By: #### M G, HS TROP, DDIMER, TSH3, CMP, BNP, CBC, [id number], PTT, PT #### [facility] [address] [place] [address] [place] GFR/1.73 sq M.predicted MDRD (S/P/Bld) [Vol rate/Area] mL/min/{1.73_m2} Normal [facility] Comment on above: Performed By: #### M G, HS TROP, DDIMER, TSH3, CMP, BNP, CBC, [id number], PTT, PT #### [facility] [address] [place] [id number] [facility] Comprehensive metabolic 2000 panelon 01-02-2025 Albumin [Mass/Vol] 3.6 g/dL Low 3.9-4.9 [facility] Comment on above: Order Comment: Speci men Type: BLOOD SPECIMENOrdering Facility: [facility] Address: [address] [place] [address] Performed By: #### 2 4323-8, ####[facility]CL[facility] [id number] [place] [address] ALP [Catalytic activity/Vol] 75 U/L Normal 38-113 [facility] Comment on above: Order Comment: Speci men Type: BLOOD SPECIMENOrdering Facility: [facility] Address: [address] [place] [address] Performed By: #### 2 4323-8, ####[facility]CL[facility] [id number] [place] [address] ALT [Catalytic activity/Vol] 12 U/L Normal 10-54 [facility] Comment on above: Order Comment: Speci men Type: BLOOD SPECIMENOrdering Facility: [facility] Address: [address] [place] [address] Performed By: #### 2 4323-8, ####[facility] LABCLIA [id number] [place] [address] Anion gap [Moles/Vol] 12 mmol/L Normal 8-15 [facility] Comment on above: Order Comment: Speci men Type: BLOOD SPECIMENOrdering Facility: [facility] Address: [address] [place], [place] [address] Performed By: #### 2 4323-8, ####[facility] LABCLIA [id number] [place] [address] AST [Catalytic activity/Vol] 12 U/L Low 14-40 [facility] Comment on above: Order Comment: Speci men Type: BLOOD SPECIMENOrdering Facility: [facility] Address: [address] [place], [place] [address] Performed By: #### 2 4323-8, ####[facility] LABCLIA [id number] [place] [address] Bilirubin [Mass/Vol] 0.3 mg/dL Normal 0.2-1.3 [facility] Comment on above: Order Comment: Speci men Type: BLOOD SPECIMENOrdering Facility: [facility] Address: [address] [place] [address] Performed By: #### 2 4323-8, ####[facility] LABCLIA [id number] [place] [address] Calcium [Mass/Vol] 9.6 mg/dL Normal 8.5-10.2 [facility] Comment on above: Order Comment: Speci men Type: BLOOD SPECIMENOrdering Facility: [facility] Address: [address] [place] [address] Performed By: #### 2 4323-8, ####[facility] LABCLIA [id number] [place] [address] Chloride [Moles/Vol] 100 mmol/L Normal 98-107 [facility] Comment on above: Order Comment: Speci men Type: BLOOD SPECIMENOrdering Facility: [facility] Address: [address] [place] [address] Performed By: #### 2 4323-8, ####[facility]CL[facility] [id number] [place] [address] CO2 [Moles/Vol] 22 mmol/L Normal 22-30 [facility] Comment on above: Order Comment: Speci men Type: BLOOD SPECIMENOrdering Facility: [facility] Address: [address] [place] [address] Performed By: #### 2 4323-8, ####[facility] LABCLIA [id number] [place] [address] Creatinine [Mass/Vol] 0.77 mg/dL Normal 0.73-1.22 [facility] Comment on above: Order Comment: Speci men Type: BLOOD SPECIMENOrdering Facility: [facility] Address: [address] [place] [address] Performed By: #### 2 4323-8, ####[facility] LABCLIA [id number] [place] [address] eGFRcr SerPlBld CKD-EPI 2020 101 mL/min/1.73m??? Normal >=60 [facility] Comment on above: Order Comment: Speci men Type: BLOOD SPECIMENOrdering Facility: [facility] Address: [address] [place] [address] Result Comment: Carly mated Glomerular Filtration Rate (eGFR) is calculated using the 2021 CKD-EPI creatinine equation. This equation utilizes serum creatinine, sex, and age as parameters. The creatinine assay has traceable calibration to isotope dilution-mass spectrometry. Refer to KDIGO guidelines for clinical interpretation. In patients with unstable renal function, e.g. those with acute kidney injury, the eGFR may not accurately reflect actual GFR. Performed By: #### 2 4323-8, ####[facility] LABCLIA [id number] [place] [address] Glucose [Mass/Vol] 104 mg/dL High 74-99 [facility] Comment on above: Order Comment: Ange hull Type: BLOOD SPECIMENOrdering Facility: [facility] Address: [address] [place] [address] Result Comment: The [place] [employer] (ADA) provides guidance for cutoff values for fasting glucose and random glucose. The ADA defines fasting as no caloric intake for at least 8 hours. Fasting plasma glucose results between 100 to 125 mg/dL indicate increased risk for diabetes (prediabetes).Fasting plasma glucose results greater than or equal to 126 mg/dL meet the criteria for diagnosis of diabetes. In the absence of unequivocal hyperglycemia, results should be confirmed by repeat testing. In a patient with classic symptoms of hyperglycemia or hyperglycemic crisis, random plasma glucose results greater than or equal to 200 mg/dL meet the criteria for diagnosis of diabetes.Reference: Standards of Medical Care in Diabetes 2016, [place] [employer]. Diabetes Care. 2016.39(Suppl 1). Performed By: #### 2 43208-19, ####[facility] [id number] [place] [address] Potassium [Moles/Vol] 3.6 mmol/L Low 3.7-5.1 [facility] Comment on above: Order Comment: Ange hull Type: BLOOD SPECIMENOrdering Facility: [facility] Address: [address] [place] [address] Performed By: #### 2 4323, ####[facility] [id number] [place] [address] Protein [Mass/Vol] 7.2 g/dL Normal 6.3-8.0 [facility] Comment on above: Order Comment: Speci men Type: BLOOD SPECIMENOrdering Facility: [facility] Address: [address] [place] [address] Performed By: #### 2 4323-8, ####[facility] [id number] [place] [address] Sodium [Moles/Vol] 134 mmol/L Low 136-144 [facility] Comment on above: Order Comment: Speci men Type: BLOOD SPECIMENOrdering Facility: [facility] Address: [address] [place], [place] [id number] Performed By: #### 2 4328, ####[facility] [id number] [place] [address] Urea nitrogen [Mass/Vol] 9 mg/dL Normal 9-24 [facility] Comment on above: Order Comment: Speci men Type: BLOOD SPECIMENOrdering Facility: [facility] Address: [address] [place], [place] [id number] Performed By: #### 2 4328, ####[facility] [id number] [place] [address] Creatinine [Mass/volume] in Serum or PlasmaOrdered By: Dominic Ryder on 01-02-2025 Creatinine [Mass/Vol] 0.79 mg/dL Normal 0.70-1.30 [facility] Comment on above: Performed By: #### M G, HS TROP, DDIMER, TSH3, CMP, BNP, CBC, [id number], PTT, PT #### [facility] [address] [place] [address] [facility] D-Dimer High Sensitivityon 0 01-02-2025 D-Dimer High Sensitivity 1250 ng/mL High 0-243 [facility] Comment on above: Result Comment: The reference range for D-dimer is <243 ng/mL D-dimer units. D-dimer results must be used in conjunction with a clinical pretest probability (PTP) assessment model for deep vein thrombosis (DVT) and pulmonary embolism (PE). Results <230 ng/mL d-dimer units can be used as a negative predictor in patients with low or moderate probability for DVT/PE. Results above the exclusion threshold of 230 ng/ml D-dimer units for DVT/PE may indicate the need for further diagnostic testing. D-Dimer can be increased in hospitalized patients due to co-morbid conditions. A hematocrit value greater than 55% may lead to inaccurate results in coagulation testing. Patients having hematocrit values >55% require a special collection tube for coagulation studies. Please contact the laboratory at [phone] for redraw instructions. PERFORMED BY: [place] [address] PATHOLOGIST STATION INSPECTOR KELVIN HOLMAN M.D. Performed By: #### M G, HS TROP, DDIMER, TSH3, CMP, BNP, CBC, [id number], PTT, PT #### [place] [id number] [facility] ECG 12 lead ECGon 01-02-2025 ECG 12 lead ECG [facility] [place] [address] [place] [address] Electrocardiograph Report Signed Patient: Jatin Koch II MR#: [id number] : 1960 Acct:[id number] Age/Sex: 64 / M ADM Date: 01/02/25 Loc: ER Room: Type: [facility] ER Attending Dr: Ordering Provider: Dominic Ryder PA-C Date of Service: 01/02/25 ECG/ECG 12 lead ECG: WEAKNESS Copies to: Test Reason : Blood Pressure : 98/69 mmHG Vent. Rate : 90 BPM Atrial Rate : 90 BPM P-R Int : 136 ms QRS Dur : 150 ms QT Int : 418 ms P-R-T Axes : 54 228 34 degrees QTcB Int : 511 ms Atrial-sensed ventricular-paced rhythm Confirmed by Home RUSSO DO ([id number]) on 01/02/2025 4:39:33 PM Referred By: Electronically Signed By: Home RUSSO DO Transcribed By: MUS Signed By Home Russo DO 0 01/02/25 1639 Normal [facility] Eosinophils [#/volume] in Bl ood by Automated countOrdered By: Dominic Ryder on 01-02-2025 Eosinophils (Bld) [#/Vol] 0.1 10*3/uL Normal 0.0-0.45 [facility] Comment on above: Performed By: #### M G, HS TROP, DDIMER, TSH3, CMP, BNP, CBC, [id number], PTT, PT #### [facility] [address] Eosinophils/100 leukocytes i n Blood by Automated countOrdered By: Dominic Ryder on 01-02-2025 Eosinophils/100 WBC (Bld) 1.0 % Normal . [facility] Comment on above: Performed By: #### M G, HS TROP, DDIMER, TSH3, CMP, BNP, CBC, [id number], PTT, PT #### [facility] [address] Erythrocyte distribution wid th [Ratio] by Automated countOrdered By: Dominic Ryder on 01-02-2025 Erythrocyte distribution width (RBC) [Ratio] 15.7 % High 12.0-14.8 [facility] Comment on above: Performed By: #### M G, HS TROP, DDIMER, TSH3, CMP, BNP, CBC, [id number], PTT, PT #### [facility] [address] Erythrocytes [#/volume] in B lood by Automated countOrdered By: Dominic Ryder on 01-02-2025 RBC (Bld) [#/Vol] 3.83 10*6/uL Low 3.90-5.60 [facility] Comment on above: Performed By: #### M G, HS TROP, DDIMER, TSH3, CMP, BNP, CBC, [id number], PTT, PT #### [facility] [address] Fibrin D-dimer [Presence] in Platelet poor plasma by Latex agglutinationOrdered By: Dmoinic Ryder on 01-02-2025 Fibrin D-dimer LA Ql (PPP) 1250 ng/mL High 0-243 [facility] Comment on above: The reference range for D-dimer is <243 ng/mL D-dimer units.D-dimer results must be used in conjunction with a clinicalpretest probability (PTP) assessment model for deep veinthrombosis (DVT) and pulmonary embolism (PE). Results <230ng/mL d-dimer units can be used as a negative predictor inpatients with low or moderate probability for DVT/PE.Results above the exclusion threshold of 230 ng/ml D-dimerunits for DVT/PE may indicate the need for furtherdiagnostic testing.D-Dimer can be increased in hospitalized patients due toco-morbid conditions.A hematocrit value greater than 55% may lead to inaccurate results in coagulation testing. Patients having hematocrit values >55% require a special collection tube for coagulation studies. Please contact the laboratory at [phone] for redraw instructions. Folate [Mass/volume] in Seru m or PlasmaOrdered By: Dominic Ryder on 01-02-2025 Folate [Mass/Vol] 29.0 ng/mL >5.9 [facility] Comment on above: Folate reference ran ge: >5.9 ng/mlThe WHO technical consultation on folate and vitamin [id number] has determined that folate concentrations lessthan 4 ng/ml are considered deficient. Glucose [Mass/volume] in Ser um or PlasmaOrdered By: Dominic Ryder on 01-02-2025 Glucose [Mass/Vol] 107 mg/dL High 70-100 [facility] Comment on above: ADA recommended refe rence rangeRandom Glucose Reference Range is dependent on time and content of last meal. Glucose of more than 200 mg/dL in a nonstressed, ambulatory subject supports the diagnosis of Diabetes Mellitus. Result Comment: Strong om Glucose Reference Range is dependent on time and content of last meal. Glucose of more than 200 mg/dL in a nonstressed, ambulatory subject supports the diagnosis of Diabetes Mellitus. ADA recommended reference range Performed By: #### M G, HS TROP, DDIMER, TSH3, CMP, BNP, CBC, [id number], PTT, PT #### [facility] [address] [place] [address] Hematocrit [Volume Fraction] of Blood by Automated countOrdered By: Dominic Ryder on 01-02-2025 Hematocrit (Bld) [Volume fraction] 32.0 % Low 38.8-50.0 [facility] Comment on above: Performed By: #### M G, HS TROP, DDIMER, TSH3, CMP, BNP, CBC, [id number], PTT, PT #### [facility] [address] Hemoglobin [Mass/volume] in BloodOrdered By: Dominic Ryder on 01-02-2025 Hemoglobin (Bld) [Mass/Vol] 10.3 g/dL Low 13.0-17.0 [facility] Comment on above: Performed By: #### M G, HS TROP, DDIMER, TSH3, CMP, BNP, CBC, [id number], PTT, PT #### [facility] [address] INR in Platelet poor plasma by Coagulation assayOrdered By: Dominic Ryder on 01-02-2025 INR Coag (PPP) [Relative time] 1.5 {INR} Normal [facility] Comment on above: INR Therapeutic Rang e A) Pre- and Peroperative OAT started two weeks before surgery. NOT HIP SURGERY: 1.5 - 2.5 HIP SURGERY: 2 - 3B) Primary and secondary prevention of venous THROMBOSIS: 2 - 3C) Active venous thrombosis, pulmonary embolismand prevention of recurrent venous thrombosis: 2 - 3D) Prevention of arterial thromboembolismincluding patients with mechanical heart valves: 3 - 4.5 Result Comment: INR Therapeutic Range A) Pre- and Peroperative OAT started two weeks before surgery. NOT HIP SURGERY: 1.5 - 2.5 HIP SURGERY: 2 - 3 B) Primary and secondary prevention of venous THROMBOSIS: 2 - 3 C) Active venous thrombosis, pulmonary embolism and prevention of recurrent venous thrombosis: 2 - 3 D) Prevention of arterial thromboembolism including patients with mechanical heart valves: 3 - 4.5 Performed By: #### M G, HS TROP, DDIMER, TSH3, CMP, BNP, CBC, [id number], PTT, PT #### [facility] [address] Laboratory - Microbiology an d Antimicrobial susceptibilityOrdered By: Norah Whittaker on 01-02-2025 Bacteria identified Cx Nom (Bld) NO GROWTH 5 DAYS [facility] Bacteria identified Cx Nom (Bld) NO GROWTH 5 DAYS [facility] Leukocytes [#/volume] correc abe for nucleated erythrocytes in Blood by Automated counOrdered By: Dominic Ryder on 01-02-2025 WBC corrected for nucl RBC Auto (Bld) [#/Vol] 15.5 10*3/uL High 4.1-10.5 [facility] Leukocytes [#/volume] in Blo od by Automated countOrdered By: Dominic Ryder on 01-02-2025 WBC (Bld) [#/Vol] 15.5 10*3/uL High 4.1-10.5 [facility] Comment on above: Performed By: #### M G, HS TROP, DDIMER, TSH3, CMP, BNP, CBC, [id number], PTT, PT #### [facility] [address] [place] [address] [place] Lymphocytes [#/volume] in Bl ood by Automated countOrdered By: Dominic Ryder on 01-02-2025 Lymphocytes (Bld) [#/Vol] 0.4 10*3/uL Low 1.00-4.8 [facility] Comment on above: Performed By: #### M G, HS TROP, DDIMER, TSH3, CMP, BNP, CBC, [id number], PTT, PT #### [facility] [address] [place] [address] [place] Lymphocytes/100 leukocytes i n Blood by Automated countOrdered By: Dominic Ryder on 01-02-2025 Lymphocytes/100 WBC (Bld) 2.3 % Normal . [facility] Comment on above: Performed By: #### M G, HS TROP, DDIMER, TSH3, CMP, BNP, CBC, [id number], PTT, PT #### [facility] [address] [place] [address] [place] MCH [Entitic mass] by Automa abe countOrdered By: Dominic Ryder on 01-02-2025 MCH (RBC) [Entitic mass] 26.8 pg Low 27.5-35.2 [facility] Comment on above: Performed By: #### M G, HS TROP, DDIMER, TSH3, CMP, BNP, CBC, [id number], PTT, PT #### [facility] [address] [place] [address] [facility] MCHC Auto (RBC) [Mass/Vol]Or dered By: Dominic Ryder on 01-02-2025 MCHC (RBC) [Mass/Vol] 32.0 g/dL Low 32.5-35.6 [facility] MCV [Entitic volume] by Auto mated countOrdered By: Dominic Ryder on 01-02-2025 MCV (RBC) [Entitic vol] 83.6 fL Normal 83.5-101 [facility] Comment on above: Performed By: #### M G, HS TROP, DDIMER, TSH3, CMP, BNP, CBC, [id number], PTT, PT #### [facility] [address] [place] [address] [facility] Magnesium SerPl-mCncon 01-02 Magnesium [Mass/Vol] 1.8 mg/dL Normal 1.7-2.3 [facility] Comment on above: Order Comment: Speci men Type: BLOOD SPECIMENOrdering Facility: [facility] Address: [address] [place] [address] Performed By: #### 2 4323-8, 94518-6 ####[facility] [id number] [place] [address] Magnesium [Mass/volume] in S karishma or PlasmaOrdered By: Dominic Ryder on 01-02-2025 Magnesium [Mass/Vol] 1.5 mg/dL Low 1.9-2.7 [facility] Comment on above: Result Comment: PERF ORMED BY: [facility] [address] [place] [address] PATHOLOGIST STATION INSPECTOR KELVIN HOLMAN M.D. Performed By: #### M G, HS TROP, DDIMER, TSH3, CMP, BNP, CBC, [id number], PTT, PT #### [facility] [address] [place] [address] [place] Monocyte distribution width [Entitic volume] in Blood by AutomatedOrdered By: Dominic Ryder on 01-02-2025 Monocyte distribution width Auto (Bld) [Entitic vol] 24.21 % High 0.00-20.00 [facility] Comment on above: For adults in ED, MD W > 20.0 may be associated with a higher risk of sepsis during the first 12 hrs of hospital admission Monocytes [#/volume] in Bloo d by Automated countOrdered By: Dominic Ryder on 01-02-2025 Monocytes (Bld) [#/Vol] 0.4 10*3/uL Normal 0.0-0.8 [facility] Comment on above: Performed By: #### M G, HS TROP, DDIMER, TSH3, CMP, BNP, CBC, [id number], PTT, PT #### [facility] [address] [place] [address] [place] Monocytes/100 leukocytes in Blood by Automated countOrdered By: Dominic Ryder on 01-02-2025 Monocytes/100 WBC (Bld) 2.4 % Normal . [facility] Comment on above: Performed By: #### M G, HS TROP, DDIMER, TSH3, CMP, BNP, CBC, [id number], PTT, PT #### [facility] [address] [place] [address] [place] Neutrophils [#/volume] in Bl ood by Automated countOrdered By: Dominic Ryder on 01-02-2025 Neutrophils (Bld) [#/Vol] 14.5 10*3/uL High 1.8-7.7 [facility] Comment on above: Performed By: #### M G, HS TROP, DDIMER, TSH3, CMP, BNP, CBC, [id number], PTT, PT #### [facility] [address] [place] [id number] [place] Neutrophils/100 leukocytes i n Blood by Automated countOrdered By: Dominic Ryder on 01-02-2025 Neutrophils/100 WBC (Bld) 93.9 % Normal . [facility] Comment on above: Performed By: #### M G, HS TROP, DDIMER, TSH3, CMP, BNP, CBC, [id number], PTT, PT #### [facility] [address] [place] [address] No Panel InformationOrdered By: Dominic Ryder on 01-02-2025 Estimated GFR (CKD-EPI) > 60.0 mL/Min [facility] Creatinine Clearance (Chem 99.34 [facility] Nucleated erythrocytes [Pres ence] in Blood by Automated countOrdered By: Dominic Ryder on 01-02-2025 Nucleated RBC Auto Ql (Bld) 0.0 /100{WBC} 0-0.5 [facility] Partial Thromboplastin Timeo n 01-02-2025 aPTT Coag (Bld) [Time] 26.1 s Normal 25.1-36.5 [facility] Comment on above: Result Comment: A he matocrit value greater than 55% may lead to inaccurate results in coagulation testing. Patients having hematocrit values >55% require a special collection tube for coagulation studies. Please contact the laboratory at [phone] for redraw instructions. Performed By: #### M G, HS TROP, DDIMER, TSH3, CMP, BNP, CBC, [id number], PTT, PT #### [facility] [address] [place] [address] Platelet mean volume [Entiti c volume] in Blood by Automated countOrdered By: Dominic Ryder on 01-02-2025 Platelet mean volume (Bld) [Entitic vol] 7.9 fL Normal 6.6-10.1 [facility] Comment on above: Performed By: #### M G, HS TROP, DDIMER, TSH3, CMP, BNP, CBC, [id number], PTT, PT #### [address] Platelets [#/volume] in Bloo d by Automated countOrdered By: Dominic Ryder on 01-02-2025 Platelets (Bld) [#/Vol] 249 10*3/uL Normal 150-450 [facility] Comment on above: Performed By: #### M G, HS TROP, DDIMER, TSH3, CMP, BNP, CBC, [id number], PTT, PT #### [facility] [address] [place] [address] [place] Potassium [Moles/volume] in Serum or PlasmaOrdered By: Dominic Ryder on 01-02-2025 Potassium [Moles/Vol] 3.7 mmol/L Normal 3.5-5.1 [facility] Comment on above: Performed By: #### M G, HS TROP, DDIMER, TSH3, CMP, BNP, CBC, [id number], PTT, PT #### [facility] [address] Protein [Mass/volume] in Ser um or PlasmaOrdered By: Dominic Ryder on 01-02-2025 Protein [Mass/Vol] 6.0 g/dL Low 6.4-8.9 [facility] Comment on above: Performed By: #### M G, HS TROP, DDIMER, TSH3, CMP, BNP, CBC, [id number], PTT, PT #### [facility] [address] Prothrombin time (PT)Ordered By: Dominic Ryder on 01-02-2025 PT Coag (PPP) [Time] 17.1 s High 9.0-12.9 [facility] Comment on above: A hematocrit value g reater than 55% may lead to inaccurate results in coagulation testing. Patients having hematocrit values >55% require a special collection tube for coagulation studies. Please contact the laboratory at [phone] for redraw instructions. Result Comment: A he matocrit value greater than 55% may lead to inaccurate results in coagulation testing. Patients having hematocrit values >55% require a special collection tube for coagulation studies. Please contact the laboratory at [phone] for redraw instructions. Performed By: #### M G, HS TROP, DDIMER, TSH3, CMP, BNP, CBC, [id number], PTT, PT #### [facility] [address] [place] [id number] [facility] Serum globulin measurement b y calculation (mass/volume)Ordered By: Dominic Ryder on 01-02-2025 Globulin (S) [Mass/Vol] 3.0 g/dL Normal [facility] Comment on above: Performed By: #### M G, HS TROP, DDIMER, TSH3, CMP, BNP, CBC, [id number], PTT, PT #### [facility] [address] [place] [address] Serum or plasma albumin/glob ulin mass ratioOrdered By: Dominic Ryder on 01-02-2025 Albumin/Globulin [Mass ratio] 1.0 {ratio} Normal [facility] Comment on above: Performed By: #### M G, HS TROP, DDIMER, TSH3, CMP, BNP, CBC, [id number], PTT, PT #### [address] Serum or plasma anion gap de terminationOrdered By: Dominic Ryder on 01-02-2025 Anion gap [Moles/Vol] 11.3 mmol/L Normal 6.0-15.0 [facility] Comment on above: Performed By: #### M G, HS TROP, DDIMER, TSH3, CMP, BNP, CBC, [id number], PTT, PT #### [address] Sodium [Moles/volume] in Ser um or PlasmaOrdered By: Dominic Ryder on 01-02-2025 Sodium [Moles/Vol] 134 mmol/L Low 136-145 [facility] Comment on above: Performed By: #### M G, HS TROP, DDIMER, TSH3, CMP, BNP, CBC, [id number], PTT, PT #### [address] Thyrotropin [Units/volume] i n Serum or PlasmaOrdered By: Dominic Ryder on 01-02-2025 TSH Qn 0.92 m[IU]/L Normal 0.45-5.33 [facility] Comment on above: Result Comment: PERF ORMED BY: [place] [address] PATHOLOGIST STATION INSPECTOR KELVIN HOLMAN M.D. Performed By: #### M G, HS TROP, DDIMER, TSH3, CMP, BNP, CBC, [id number], PTT, PT #### [address] Troponin I High Sensitivityo n 01-02-2025 Troponin I High Sensitivity 6 Normal 0-20 [facility] Comment on above: Result Comment: The Troponin units of report have been changed to meet the Chest Pain Accreditation requirement, element EC5.M1l2. Troponin units are changed from pg/ml to ng/L. Also, the decimal is removed and results are in whole numbers. PERFORMED BY: [place] [address] PATHOLOGIST STATION INSPECTOR KELVIN HOLMAN M.D. Performed By: #### M G, HS TROP, DDIMER, TSH3, CMP, BNP, CBC, [id number], PTT, PT #### [facility] [address] Troponin I.cardiac [Mass/vol ume] in Serum or Plasma by Detection limit <= 0.01 ng/mLOrdered By: Dominic Ryder on 01-02-2025 Troponin I.cardiac DL <= 0.01 ng/mL [Mass/Vol] 6 ng/L 0-20 [facility] Comment on above: The Troponin units o f report have been changed to meet the Chest Pain Accreditation requirement, element EC5.M1l2. Troponin units are changed from pg/ml to ng/L. Also, the decimal is removed and results are in whole numbers. Urea nitrogen [Mass/volume] in Serum or PlasmaOrdered By: Dominic Ryder on 01-02-2025 Urea nitrogen [Mass/Vol] 12 mg/dL Normal 7-25 [facility] Comment on above: Performed By: #### M G, HS TROP, DDIMER, TSH3, CMP, BNP, CBC, [id number], PTT, PT #### [facility] [address] Vit. B12/Folate Profileon Folate 29.0 ng/mL Normal >5.9 [facility] Comment on above: Result Comment: Sally te reference range: >5.9 ng/ml The WHO technical consultation on folate and vitamin b12 deficiencies has determined that folate concentrations less than 4 ng/ml are considered deficient. Performed By: #### M G, HS TROP, DDIMER, TSH3, CMP, BNP, CBC, [id number], PTT, PT #### [facility] [address] Vitamin B12 ser/plasOrdered By: Dominic Ryder on 01-02-2025 Cobalamin (Vitamin B12) [Mass/Vol] 626 pg/mL Normal 180-914 [facility] Comment on above: Performed By: #### M G, HS TROP, DDIMER, TSH3, CMP, BNP, CBC, [id number], PTT, PT #### [facility] [address] X-ray reportOrdered By: Rafael Mccann on 01-02-2025 Study report [facility] [place] [address] [place] [address] XRay Report Signed Patient: Jatin Koch II MR#: [id number] : 1960 Acct:[id number] Age/Sex: 64 / M ADM Date: 5 Loc: ER Room: Type: [facility] ER Attending Dr: Copies to: Dominic Ryder PA-C~ Ordering Provider: Dominic Ryder PA-C Date of Service: 01/02/25 XR/XR chest 1V portable: WEAKNESS Plain film chest Single view HISTORY: Increased shortness of breath. History of treatment for lung cancer. COMPARISON: 11/03/2024 FINDINGS: SUPPORT DEVICES: None POSTSURGICAL CHANGES: Cardiac device intact HEART: Within normal limits PULMONARY JERE: Within normal limits MEDIASTINUM: Unremarkable LUNGS AND PLEURA: Developing right basilar consolidation posteriorly. Basilar atelectasis on the right. Small pleural effusion the right may be present. No pneumothorax. BONY STRUCTURES: Intact ADDITIONAL FINDINGS None XR/XR chest 1V portable IMPRESSION: New posterior right basilar region of consolidation with atelectasis and possible small effusion. Impression dictated by: Kirk Mccann M.D. 01/02/2025 3:01 PM Dictation Location: [place] [address] Transcribed By: [facility] 01/02/25 1501 Dictated By: Kirk Mccann DO 01/02/25 1459 Signed By: 01/02/25 1501 [facility] XR chest 1V portableon 01-02 XR chest 1V portable [facility] [place] [address] [place] [address] XRay Report Signed Patient: Jatin Koch II MR#: [id number] : 1960 Acct:[id number] Age/Sex: 64 / M ADM Date: 01/02/25 Loc: ER Room: Type: [facility] ER Attending Dr: Copies to: Dominic Ryder PA-C Ordering Provider: Dominic Ryder PA-C Date of Service: 01/02/25 XR/XR chest 1V portable: WEAKNESS Plain film chest Single view HISTORY: Increased shortness of breath. History of treatment for lung cancer. COMPARISON: 11/03/2024 FINDINGS: SUPPORT DEVICES: None POSTSURGICAL CHANGES: Cardiac device intact HEART: Within normal limits PULMONARY JERE: Within normal limits MEDIASTINUM: Unremarkable LUNGS AND PLEURA: Developing right basilar consolidation posteriorly. Basilar atelectasis on the right. Small pleural effusion the right may be present. No pneumothorax. BONY STRUCTURES: Intact ADDITIONAL FINDINGS None XR/XR chest 1V portable IMPRESSION: New posterior right basilar region of consolidation with atelectasis and possible small effusion. Impression dictated by: Kirk Mccann M.D. 01/02/2025 3:01 PM Dictation Location: [place] [address] Transcribed By: [facility] 01/02/25 1501 Dictated By: Kirk Mccann DO 01/02/25 1459 Signed By: 01/02/25 1501 Normal [facility] aPTT in Platelet poor plasma by Coagulation assayOrdered By: Dominic Ryder on 01-02-2025 aPTT Coag (PPP) [Time] 26.1 s 25.1-36.5 [facility] Comment on above: A hematocrit value g reater than 55% may lead to inaccurate results in coagulation testing. Patients having hematocrit values >55% require a special collection tube for coagulation studies. Please contact the laboratory at [phone] for redraw instructions. Ambulatory Visit Summaryon 0 12-29-2024 Ambulatory Visit Summary Ambulatory Visit Summary JATIN KOCH II :1960 Visit Date:12/29/2024 Ambulatory Visit Instructions Your Diagnosis Postobstructive pneumonia GERD (gastroesophageal reflux disease) Nausea and vomiting Hospital discharge follow-up BMI 27.0-27.9,adult Overweight (BMI 25.0-29.9) Nonsmoker Your Care Team Attending Physician - CATRACHO YOUSSEF CNP Primary Care Physician - Carlos Sethi This Is Your Medications List albuterol (albuterol 0.083% Inh Vianca 3 mL) benzonatate (benzonatate 200 mg oral capsule) diphenhydrAMINE (Benadryl 25 mg Cap) docusate-senna (Senexon-S oral tablet) doxycycline (doxycycline monohydrate 100 mg oral capsule) esomeprazole (esomeprazole 40 mg Cap-EC) meclizine (meclizine 25 mg Tab) metoprolol (metoprolol succinate 25 mg ER Tab) multivitamin (Multi Vitamin+) ondansetron (ondansetron 8 mg Tab) potassium chloride (Potassium Chloride (Ecn-Mjhl-Wqb M20) 20 mEq oral tablet, extended release) prochlorperazine (prochlorperazine 10 mg Tab) Procedures Performed TURP - Transurethral resection of prostate (05/17/2019), Cystoscopy (12/08/2018), Colonoscopy, Tonsillectomy. Discharge Vitals Temperature (Oral) 36.8 ???C Heart Rate (Peripheral) 96 Respiratory Rate 18 Blood Pressure 124/80 Height 172 cm Height 68 in Weight 80.5 kg Weight 177.472 lb BMI 27.21 What to do next Scheduled Follow-Up Appointments Wednesday 9:40 AM EDT With: VICTORIA FLORES PA-C Where: [facility] [address] [place] [address]- Wednesday 8:20 AM EDT With: Cralos Sethi Where: [facility] [address] [address]- Medications What How Much When Why Instructions New esomeprazole (esomeprazole 40 mg Cap-EC) 1 Capsules By Mouth Every day Postobstructive pneumonia GERD (gastroesophageal reflux disease) Hospital discharge follow-up BMI 27.0-27.9,adult Overweight (BMI 25.0-29.9) Nonsmoker Refills: 2 Pickup at [facility]/pharmacy #[id number] Unchanged albuterol (albuterol 0.083% Inh Vianca 3 mL) 3 Milliliter Inhalation Every 6 hours as needed for for wheezing Unchanged benzonatate (benzonatate 200 mg oral capsule) TAKE 1 CAPSULE BY MOUTH THREE TIMES A DAY NEEDED FOR COUGH Unchanged diphenhydrAMINE (Benadryl 25 mg Cap) 1 Capsules By Mouth Once Unchanged docusate-senna (Senexon-S oral tablet) TAKE 1 TABLET BY MOUTH TWICE A DAY Unchanged doxycycline (doxycycline monohydrate 100 mg oral capsule) TAKE 1 CAPSULE BY MOUTH TWICE A DAY Unchanged meclizine (meclizine 25 mg Tab) TAKE 1 TABLET BY MOUTH THREE TIMES A DAY Unchanged metoprolol (metoprolol succinate 25 mg ER Tab) 1 Tablets By Mouth Every day Unchanged multivitamin (Multi Vitamin+) Unchanged ondansetron (ondansetron 8 mg Tab) Unchanged potassium chloride (Potassium Chloride (Uzp-Wuln-Hla M20) 20 mEq oral tablet, extended release) Unchanged prochlorperazine (prochlorperazine 10 mg Tab) Pharmacy Information [facility]/pharmacy #[id number]: [address], [place] [id number] [phone] Allergies codeine (Sweating) Bactrim (Unable to void) Pollen (Watery eye, Eye swelling) sulfamethoxazole (Unknown, Unable to urinate) Problems Ongoing - Any problem that you are currently receiving treatment for. Arthritis BMI 27.0-27.9,adult BPH with urinary obstruction Encounter to establish care Fever Flank pain Former smoker Gout Head injury History of kidney stones Hospital discharge follow-up Hx of fdc use of blood thinners Impaired mobility Kidney stones Microhematuria Nonsmoker Overweight (BMI 25.0-29.9) Pneumonia Renal cyst Screening PSA (prostate specific antigen) Squamous cell lung cancer Syncope Weakness Wheezing Historical - Any problem that you are [...] signed up for this yet, please contact [employer] at [phone] to get signed up today. Language Information Language assistance services are available as needed. Manoj Babcock [facility] Family Medicine Office/Clini c Noteon 12-29-2024 Family Medicine Office/Clinic Note Family Medicine Office/Clinic Note Chief Complaint TCM visit The patient presents with postobstructive pneumonia and associated symptoms. HPI Staff Carlos Collins pt. Presenting today for TCM visit. Hospital: [facility] Admission date: 12/15/24 Discharge date: 12/22/24 Symptoms the patient presented with: cough Current concerns: Did get handicapped placard & PT order from oncology. No needs from [facility] today. History of Present Illness 64-year-old male presenting with his for follow-up after hospital discharge for postobstructive pneumonia. He was hospitalized from December 15 to December 22 and has been experiencing intermittent fevers, with a recent high of 103.6???F, managed with acetaminophen. The patient reports weakness in his legs, which has affected his mobility, requiring assistance to move upstairs. His reports they have moved his bed to the first floor and have a window air conditioner for comfort. The patient has been experiencing nausea and vomiting, particularly with solid foods, leading to a decreased appetite and weight loss of approximately three pounds. He is currently managing nausea with prochlorperazine and has been advised to maintain a high protein intake of 130 to 140 grams per day. The patient experienced an episode of chest pain two days ago, rated 7/10, which resolved with acetaminophen. The pain was localized and did not radiate, and the patient refused to go to the emergency room despite recommendations. The patient has a history of GERD, for which he is taking esomeprazole (Nexium), and reports improvement in symptoms with this medication. Review of Systems PHQ Score Initial Depression Screen Score: 0 SCORE Constitutional: no fever, no chills, no sweats, no weakness Respiratory: no shortness of breath, no cough, no orthopnea, no wheezing Cardiovascular: no chest pain, no palpitations, no edema Additional ROS info: Except as noted in the above Review of Systems and in the History of Present Illness all other systems have been reviewed and are negative or noncontributory. - General: Reports intermittent fever, decreased appetite, and weight loss of three pounds. - Gastrointestinal: Reports nausea and vomiting, particularly with solid foods. - Cardiovascular: Reports chest pain two days ago, resolved with acetaminophen. - Musculoskeletal: Reports weakness in legs affecting mobility. Physical Exam Vitals & Measurements T: 36.8 ???C(Oral) HR: 96(Peripheral) RR: 18 BP: 124/80 SpO2: 97% HT: 68 in HT: 172 cm WT: 80.5 kg WT: 177.472 lb BMI: 27.21 General: alert, no acute distress Skin: warm, dry Head: no trauma, normocephalic Cardiovascular: regular rate and rhythm, normal peripheral perfusion Respiratory: Lungs CTA, respirations non labored Neurological: oriented x 4, LOC appropriate for age speech normal Psychiatric: cooperative, affect appropriate for age, normal judgement, normal psychiatric thoughts. Assessment/Plan 1. Postobstructive pneumonia (J18.9: Pneumonia, unspecified organism) - Continue monitoring temperature and manage fever with acetaminophen as needed. - Follow-up with primary care for further evaluation and management. Ordered: esomeprazole, 40 mg = 1 cap(s), Oral, Daily, # 30 cap(s), Refills(s) 2, Pharmacy: [facility]/pharmacy #[id number], 172, cm, 12/29/24 8:53:00 EDT, Height/Length Dosing, 80.5, kg, 12/29/24 8:53:00 EDT, Weight Dosing [facility] disch [id number] 2. GERD (gastroesophageal reflux disease) (K21.9: Gastro-esophageal reflux disease without esophagitis) - Continue esomeprazole (Nexium) for GERD management. Ordered: esomeprazole, 40 mg = 1 cap(s), Oral, Daily, # 30 cap(s), Refills(s) 2, Pharmacy: [facility]/pharmacy #[id number], 172, cm, 12/29/24 8:53:00 EDT, Height/Length Dosing, 80.5, kg, 12/29/24 8:53:00 EDT, Weight Dosing [facility] disch [id number] 3. Nausea and vomiting (R11.2: Nausea with vomiting, unspecified) - Continue prochlorperazine for nausea management. - Encourage high protein intake as advised by dietitian. Ordered: [facility] 14 day disch 4. Hospital discharge follow-up (Z09: Encounter for follow-up examination after completed treatment for conditions other than malignant neoplasm) Reviewed discharge summary and medications Ordered: esomeprazole, 40 mg = 1 cap(s), Oral, Daily, # 30 cap(s), Refills(s) 2, Pharmacy: [facility]/pharmacy #[id number], 172, cm, 12/29/24 8:53:00 EDT, Height/Length Dosing, 80.5, kg, 12/29/24 8:53:00 EDT, Weight Dosing Discharge medications reconciled with current medications in outpatient record [id number] [facility] 14 day disch 5. BMI 27.0-27.9,adult (Z68.27: Body mass index [BMI] 27.0-27.9, adult) BMI 27.21 Ordered: esomeprazole, 40 mg = 1 cap(s), Oral, Daily, # 30 cap(s), Refills(s) 2, Pharmacy: [facility]pharmacy #[id number], 172, cm, 12/29/24 8:53:00 EDT, Height/Length Dosing, 80.5, kg, 12/29/24 8:53:00 EDT, Weight Dosing [facility] disch 6. Overweig (more content not included)... Normal [facility] Comment on above: Result Comment: Elec tronically Signed By: CATRACHO YOUSSEF CNP\.br\Date and Time Signed: 12/29/24 09:27 EDT CBC W Auto Differential pane l (Bld)on 12-26-2024 Basophils (Bld) [#/Vol] 0.04 10*3/uL Normal <0.11 [facility] Comment on above: Order Comment: Speci men Type: BLOOD SPECIMENOrdering Facility: [facility] Address: [address] [place] [address] Performed By: #### 5 7021-8 ####[facility]CL[facility] [id number] [place] [address] Basophils/100 WBC (Bld) 0.2 % Normal [facility] Comment on above: Order Comment: Speci men Type: BLOOD SPECIMENOrdering Facility: [facility] Address: [address] [place] [address] Performed By: #### 5 7021-8 ####[facility]CL[facility] [id number] [place] [address] Differential cell count method Nom (Bld) Auto Normal [facility] Comment on above: Order Comment: Speci men Type: BLOOD SPECIMENOrdering Facility: [facility] Address: [address] [place] [address] Performed By: #### 5 7021-8 ####[facility]CL[facility] [id number] [place] [address] Eosinophils (Bld) [#/Vol] 0.51 10*3/uL High <0.46 [facility] Comment on above: Order Comment: Speci men Type: BLOOD SPECIMENOrdering Facility: [facility] Address: [address] [place] [address] Performed By: #### 5 7021-8 ####[facility]CL[facility] [id number] [place] [address] Eosinophils/100 WBC (Bld) 3.0 % Normal [facility] Comment on above: Order Comment: Speci men Type: BLOOD SPECIMENOrdering Facility: [facility] Address: [address] [place] [address] Performed By: #### 5 7021-8 ####[facility]CL[facility] [id number] [place] [address] Erythrocyte distribution width (RBC) [Ratio] 15.2 % High 11.5-15.0 [facility] Comment on above: Order Comment: Speci men Type: BLOOD SPECIMENOrdering Facility: [facility] Address: [address] [place] [address] Performed By: #### 5 7021-8 ####[facility]CL[facility] [id number] [place] [address] Hematocrit (Bld) [Volume fraction] 33.9 % Low 39.0-51.0 [facility] Comment on above: Order Comment: Speci men Type: BLOOD SPECIMENOrdering Facility: [facility] Address: [address] [place] [address] Performed By: #### 5 7021-8 ####[facility]CL[facility] [id number] [place] [address] Hemoglobin (Bld) [Mass/Vol] 10.8 g/dL Low 13.0-17.0 [facility] Comment on above: Order Comment: Speci men Type: BLOOD SPECIMENOrdering Facility: [facility] Address: [address] [place] [address] Performed By: #### 5 7021-8 ####[facility] [id number] [place] [address] Immature granulocytes (Bld) [#/Vol] 0.07 10*3/uL Normal <0.10 [facility] Comment on above: Order Comment: Speci men Type: BLOOD SPECIMENOrdering Facility: [facility] Address: [address] [place] [address] Performed By: #### 5 7021-8 ####[facility] [id number] [place] [address] Immature granulocytes/100 WBC (Bld) 0.4 % Normal [facility] Comment on above: Order Comment: Speci men Type: BLOOD SPECIMENOrdering Facility: [facility] Address: [address] [place] [address] Performed By: #### 5 7021-8 ####[facility] LABIA [id number] [place] [address] Lymphocytes (Bld) [#/Vol] 1.32 10*3/uL Normal 1.00-4.00 [facility] Comment on above: Order Comment: Speci men Type: BLOOD SPECIMENOrdering Facility: [facility] Address: [address] [place] [address] Performed By: #### 5 7021-8 ####[facility] [id number] [place] [address] Lymphocytes/100 WBC (Bld) 7.8 % Normal [facility] Comment on above: Order Comment: Speci men Type: BLOOD SPECIMENOrdering Facility: [facility] Address: [address] [place] [address] Performed By: #### 5 7021-8 ####[facility]CL[facility] [id number] [place] [address] MCH (RBC) [Entitic mass] 27.3 pg Normal 26.0-34.0 [facility] Comment on above: Order Comment: Speci men Type: BLOOD SPECIMENOrdering Facility: [facility] Address: [address] [place] [address] Performed By: #### 5 7021-8 ####[facility]CL[facility] [id number] [place] [address] MCHC (RBC) [Mass/Vol] 31.9 g/dL Normal 30.5-36.0 [facility] Comment on above: Order Comment: Speci men Type: BLOOD SPECIMENOrdering Facility: [facility] Address: [address] [place] [address] Performed By: #### 5 7021-8 ####[facility]CL[facility] [id number] [place] [address] MCV (RBC) [Entitic vol] 85.8 fL Normal 80.0-100.0 [facility] Comment on above: Order Comment: Speci men Type: BLOOD SPECIMENOrdering Facility: [facility] Address: [address] [place] [address] Performed By: #### 5 7021-8 ####[facility]CL[facility] [id number] [place] [address] Monocytes (Bld) [#/Vol] 0.84 10*3/uL Normal <0.87 [facility] Comment on above: Order Comment: Speci men Type: BLOOD SPECIMENOrdering Facility: [facility] Address: [address] [place] [address] Performed By: #### 5 7021-8 ####[facility]CL[facility] [id number] [place] [address] Monocytes/100 WBC (Bld) 4.9 % Normal [facility] Comment on above: Order Comment: Speci men Type: BLOOD SPECIMENOrdering Facility: [facility] Address: [address] [place] [address] Performed By: #### 5 7021-8 ####[facility]CL[facility] [id number] [place] [address] Neutrophils (Bld) [#/Vol] 14.21 10*3/uL High 1.45-7.50 [facility] Comment on above: Order Comment: Speci men Type: BLOOD SPECIMENOrdering Facility: [facility] Address: [address] [place] [address] Performed By: #### 5 7021-8 ####[facility]CL[facility] [id number] [place] [address] Neutrophils/100 WBC (Bld) 83.7 % Normal [facility] Comment on above: Order Comment: Speci men Type: BLOOD SPECIMENOrdering Facility: [facility] Address: [address] [place] [address] Performed By: #### 5 7021-8 ####[facility]CL[facility] [id number] [place] [address] Nucleated RBC (Bld) [#/Vol] 10*3/uL Normal <0.01 [facility] Comment on above: Order Comment: Speci men Type: BLOOD SPECIMENOrdering Facility: [facility] Address: [address] [place] [address] Performed By: #### 5 7021-8 ####[facility]CL[facility] [id number] [place] [address] Nucleated RBC/100 WBC (Bld) [Ratio] 0.0 /100 WBC Normal [facility] Comment on above: Order Comment: Speci men Type: BLOOD SPECIMENOrdering Facility: [facility] Address: [address] [place] [address] Performed By: #### 5 7021-8 ####[facility]CL[facility] [id number] [place] [address] Platelet mean volume (Bld) [Entitic vol] 9.0 fL Normal 9.0-12.7 [facility] Comment on above: Order Comment: Speci men Type: BLOOD SPECIMENOrdering Facility: [facility] Address: [address] [place] [address] Performed By: #### 5 7021-8 ####[facility]CL[facility] [id number] [place] [address] Platelets (Bld) [#/Vol] 246 10*3/uL Normal 150-400 [facility] Comment on above: Order Comment: Speci men Type: BLOOD SPECIMENOrdering Facility: [facility] Address: [address] [place] [address] Performed By: #### 5 7021-8 ####[facility]CL[facility] [id number] [place] [address] RBC (Bld) [#/Vol] 3.95 10*6/uL Low 4.20-6.00 [facility] Comment on above: Order Comment: Speci men Type: BLOOD SPECIMENOrdering Facility: [facility] Address: [address] [place] [address] Performed By: #### 5 7021-8 ####[facility]CL[facility] [id number] [place] [address] WBC (Bld) [#/Vol] 16.99 10*3/uL High 3.70-11.00 [facility] Comment on above: Order Comment: Speci men Type: BLOOD SPECIMENOrdering Facility: [facility] Address: [address] [place] [address] Performed By: #### 5 7021-8 ####[facility]CL[facility] [id number] [place] [address] CNOVSPon 12-26-2024 CNOVSP Normal [facility] CNPNon 12-26-2024 CNPN Normal [facility] Comprehensive metabolic 2000 panelon 12-26-2024 Albumin [Mass/Vol] 3.7 g/dL Low 3.9-4.9 [facility] Comment on above: Order Comment: Speci men Type: BLOOD SPECIMENOrdering Facility: [facility] Address: [address] [place] [address] Performed By: #### 2 4323-8 ####[facility]CL[facility] [id number] [place] [address] ALP [Catalytic activity/Vol] 68 U/L Normal 38-113 [facility] Comment on above: Order Comment: Speci men Type: BLOOD SPECIMENOrdering Facility: [facility] Address: [address] [place] [address] Performed By: #### 2 4323-8 ####[facility]CL[facility] [id number] [place] [address] ALT [Catalytic activity/Vol] 9 U/L Low 10-54 [facility] Comment on above: Order Comment: Speci men Type: BLOOD SPECIMENOrdering Facility: [facility] Address: [address] [place] [address] Performed By: #### 2 4323-8 ####[facility]CL[facility] [id number] [place] [address] Anion gap [Moles/Vol] 14 mmol/L Normal 8-15 [facility] Comment on above: Order Comment: Speci men Type: BLOOD SPECIMENOrdering Facility: [facility] Address: [address] [place] [address] Performed By: #### 2 4323-8 ####[facility]CL[facility] [id number] [place] [address] AST [Catalytic activity/Vol] 10 U/L Low 14-40 [facility] Comment on above: Order Comment: Speci men Type: BLOOD SPECIMENOrdering Facility: [facility] Address: [address] [place] [address] Performed By: #### 2 4323-8 ####[facility]CL[facility] [id number] [place] [address] Bilirubin [Mass/Vol] 0.3 mg/dL Normal 0.2-1.3 [facility] Comment on above: Order Comment: Speci men Type: BLOOD SPECIMENOrdering Facility: [facility] Address: [address] [place] [address] Performed By: #### 2 4323-8 ####[facility]CL[facility] [id number] [place] [address] Calcium [Mass/Vol] 9.5 mg/dL Normal 8.5-10.2 [facility] Comment on above: Order Comment: Speci men Type: BLOOD SPECIMENOrdering Facility: [facility] Address: [address] [place] [address] Performed By: #### 2 4323-8 ####[facility]CL[facility] [id number] [place] [address] Chloride [Moles/Vol] 102 mmol/L Normal 98-107 [facility] Comment on above: Order Comment: Speci men Type: BLOOD SPECIMENOrdering Facility: [facility] Address: [address] [place] [address] Performed By: #### 2 4323-8 ####[facility]CL[facility] [id number] [place] [address] CO2 [Moles/Vol] 20 mmol/L Low 22-30 [facility] Comment on above: Order Comment: Speci men Type: BLOOD SPECIMENOrdering Facility: [facility] Address: [address] [place] [address] Performed By: #### 2 4323-8 ####[facility]CL[facility] [id number] [place] [address] Creatinine [Mass/Vol] 0.84 mg/dL Normal 0.73-1.22 [facility] Comment on above: Order Comment: Speci men Type: BLOOD SPECIMENOrdering Facility: [facility] Address: [address] [place] [address] Performed By: #### 2 4323-8 ####[facility]CL[facility] [id number] [place] [address] eGFRcr SerPlBld CKD-EPI 2020 98 mL/min/1.73m??? Normal >=60 [facility] Comment on above: Order Comment: Speci men Type: BLOOD SPECIMENOrdering Facility: [facility] Address: [address] [place] [address] Result Comment: Carly mated Glomerular Filtration Rate (eGFR) is calculated using the 2020 CKD-EPI creatinine equation. This equation utilizes serum creatinine, sex, and age as parameters. The creatinine assay has traceable calibration to isotope dilution-mass spectrometry. Refer to KDIGO guidelines for clinical interpretation. In patients with unstable renal function, e.g. those with acute kidney injury, the eGFR may not accurately reflect actual GFR. Performed By: #### 2 4323-8 ####[facility]CL[facility] [id number] [place] [address] Glucose [Mass/Vol] 120 mg/dL High 74-99 [facility] Comment on above: Order Comment: Speci men Type: BLOOD SPECIMENOrdering Facility: [facility] Address: [address] [place] [address] Result Comment: The [place] [employer] (ADA) provides guidance for cutoff values for fasting glucose and random glucose. The ADA defines fasting as no caloric intake for at least 8 hours. Fasting plasma glucose results between 100 to 125 mg/dL indicate increased risk for diabetes (prediabetes).Fasting plasma glucose results greater than or equal to 126 mg/dL meet the criteria for diagnosis of diabetes. In the absence of unequivocal hyperglycemia, results should be confirmed by repeat testing. In a patient with classic symptoms of hyperglycemia or hyperglycemic crisis, random plasma glucose results greater than or equal to 200 mg/dL meet the criteria for diagnosis of diabetes.Reference: Standards of Medical Care in Diabetes 2016, [place] [employer]. Diabetes Care. 2016.39(Suppl 1). Performed By: #### 2 4323-8 ####[facility] [id number] [place] [address] Potassium [Moles/Vol] 3.2 mmol/L Low 3.7-5.1 [facility] Comment on above: Order Comment: Speci men Type: BLOOD SPECIMENOrdering Facility: [facility] Address: [address] [place] [address] Performed By: #### 2 4323-8 ####[facility] [id number] [place] [address] Protein [Mass/Vol] 7.0 g/dL Normal 6.3-8.0 [facility] Comment on above: Order Comment: Speci men Type: BLOOD SPECIMENOrdering Facility: [facility] Address: [address] [place] [address] Performed By: #### 2 4323-8 ####[facility]CL[facility] [id number] [place] [address] Sodium [Moles/Vol] 136 mmol/L Normal 136-144 [facility] Comment on above: Order Comment: Speci men Type: BLOOD SPECIMENOrdering Facility: [facility] Address: [address] [place] [address] Performed By: #### 2 4323-8 ####[facility] LABCLIA [id number] [place] [address] Urea nitrogen [Mass/Vol] 17 mg/dL Normal 9-24 [facility] Comment on above: Order Comment: Speci men Type: BLOOD SPECIMENOrdering Facility: [facility] Address: [address] [place] [address] Performed By: #### 2 4323-8 ####[facility]CT[facility] LABCLIA [id number] [place] [address] Ferritin SerPl-mCncon 2024 Ferritin [Mass/Vol] 595.0 ng/mL High 30.3-565.7 [facility] Comment on above: Order Comment: Speci men Type: BLOOD SPECIMENOrdering Facility: [facility] Address: [address] [place] [address] Performed By: #### 2 276-4, 9, 25886-9, 2283-8 ####[facility] LABCLIA [id number] [place] [address] [place] Folate SerPl-mCncon 12-27-19 25 Folate [Mass/Vol] 10.8 ng/mL Normal >4.7 [facility] Comment on above: Order Comment: Speci men Type: BLOOD SPECIMENOrdering Facility: [facility] Address: [address] [place] [address] Performed By: #### 2 276-4, 2131-9, 03947-4, 2283-8 ####[facility] LABCLIA [id number] [place] [address] [place] Iron and Iron binding capaci ty panelon 12-26-2024 Iron [Mass/Vol] 11 ug/dL Low 41-186 [facility] Comment on above: Order Comment: Speci men Type: BLOOD SPECIMENOrdering Facility: [facility] Address: [address] [place] [address] Performed By: #### 2 276-4, 2131-9, 53304-6, 2283-8 ####[facility] LABCLIA [id number] [address] [place] Iron binding capacity [Mass/Vol] 180 ug/dL Low 232-386 [facility] Comment on above: Order Comment: Speci men Type: BLOOD SPECIMENOrdering Facility: [facility] Address: [address] [place] [address] Performed By: #### 2 276-4, 2132-9, 14346-6, 2284-8 ####[facility] LABCLIA [id number] [place] [id number] [facility] Iron/TIBC [Molar ratio] 6.1 % Low 15.0-57.0 [facility] Comment on above: Order Comment: Speci men Type: BLOOD SPECIMENOrdering Facility: [facility] Address: [address] [place] [address] Performed By: #### 2 276-4, 2-9, 63768-4, 2284-8 ####[facility] LABCLIA [id number] [place] [id number] [place] Vit B12 [facility] 07-15-2 025 Cobalamin (Vitamin B12) [Mass/Vol] 860 pg/mL Normal 232-1245 [facility] Comment on above: Order Comment: Speci men Type: BLOOD SPECIMENOrdering Facility: [facility] Address: [address] [place] [address] Performed By: #### 2 276-4, 2131-9, 48347-1, 2284-8 ####[facility] LABIA [id number] [place] [id number] [place] Population Health 12-26-19 Population Health Population Health Case Information Case Priority: None Programs: -- Referral Source: Bit Setter Referral Reason: Care coordination Case Type: Transition Care Management Risk Score: -- Case Status: Enrolled (December 25, 2024) Date Assigned: December 25, 2024 Assigned By: Gordo Humphries Date Enrolled: December 25, 2024 Assigned Primary Personnel: Yandel, Gordo R Assigned Secondary Personnel: -- Case Physician: CATRACHO YOUSSEF CNP Problems Ongoing Arthritis BMI 31.0-31.9,adult BPH with urinary obstruction Encounter to establish care Fever Flank pain Former smoker Gout Head injury History of kidney stones Hospital discharge follow-up 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 Hypertension: Father. Screenings and Assessments 12/25/24 10:39:00 Result Name Value Comment Phone Call Monitoring Consent Agreed to continue call Phone Verification Patient Information Full name, street address and date of verified CM Program Enrollment Provides verbal consent for enrollment Goals and Interventions Care Plan Progress Note Admit Date: 12/15/24 [facility] Date of Discharge: 12/22/24 Follow-up appointment scheduled? yes, TCM F/U with Ryan Youssef 12/29/24 at 0840 Did you understand your discharge instructions? yes Are you able to follow them? yes Did you receive new medications? Yes; senna plus BID, doxycycline 100 mg BID x 7 days, augmentin BID x 5 days. Medication changes; Toprol XL increased to 50 mg QD, mucinex 30-600 mg QD PRN Have you filled the Rx's? yes Are you taking them as prescribed? Patient is going to discuss Toprol changes with circulation tender Are you having difficulty eating or swallowing your pills? no Are you having any stomach upset, diarrhea or constipation? no How are you sleeping? fine Are you having any pain? no Do you have everything you need at home to care for yourself? yes, interested in PT for strengthening, calling insurance to see who's in network Do you have Home Health? no Called patient for initial Transitional Care Management Program call. Readmission risk is not available. Reviewed d/c instructions and dx of: postobstructive PNA, squamous cell lung cancer, sepsis, h/o Covid- 19, lung cancer, hypercalcemia, hypotension, constipation, ileus. Medications reviewed, will need to be reconciled at time of OV. Reviewed purpose and side effects of new medications with patient. Patient reports he feels weak from being in the hospital 7 days. Patient denies fever or chills. Reports his breathing is 'rough on occasion with walking 25-30 feet from living room to kitchen.' Notes SPO2 ranges between 92-93%, and has dropped as low as 89% with exertion. Patient's BP monitor dies, they are going to try and get one today. Patient is ambulating with a cane. Notes appetite is not great. Patient forces himself to eat and drink. does have ensure and protein drinks in the home for him. Encouraged patient to try to drink 2 a day and eat when hungry and satisfy cravings. Patient denies bowel issues at this time. Patient was constipated in the hospital but seems to have returned to normal. Denies urinary issues. Patient is wanting a handicap placard and PT orders. Per d/c recheck calcium level in 2 weeks recommended (will need to be scheduled). Message sent to PCP. Patient has TCM follow up with Ryan Youssef 12/29/24 at 0840, medications will need to be reconciled at that time. CN explained TCM program and gave CN contact number. No further questions or concerns at this time. Communication Events Date: December 25, 2024 Method: Phone call Type: Outbound Duration (min): 14 Outcome: Yung (more content not included)... Normal [facility] CNPNon 12-22-2024 CNPN Normal [facility] CNPNon 12-18-2024 CNPN Normal [facility] ECG COMPLETEon 12-17-2024 Atrial Rate 83 BPM [facility] Calculated P [place] 34 degrees [facility] Calculated R [place] 22 degrees [facility] Calculated T [place] 14 degrees [facility] P-R Interval 166 ms [facility] QRS Duration 122 ms [facility] QT Interval 390 ms [facility] QTC Calculation (Bazett) 458 ms [facility] Ventricular Rate [address] [facility] NORMAL SINUS RHYTHM COMPLETE RIGHT BUNDLE BRANCH BLOCK ABNORMAL ECG Confirmed by MD RICHIE, PhD, SALOME ([id number]) on 12/17/2024 4:34:47 PM [facility] NAME : BLANCHE KOCH PID : [id number] : 1960 Gender : Male Race : ORD : [id number] Procedure Date : Nov 15 2024 11:34:55 Edit Date : Dec 17 2024 16:34:54 Diagnosis: NORMAL SINUS RHYTHM COMPLETE RIGHT BUNDLE BRANCH BLOCK ABNORMAL ECG Confirmed by MD RICHIE, PhD, SALOME ([id number]) on 12/17/2024 4:34:47 PM Test Reason : BPX4 Location : 119 : A17 A-17 Overread By : MD RICHIE, PhD,SALOME Edited By : MD RICHIE, PhD,SALOME Referred By : MARYURI LOWERY Acquired by : [facility] CNPNon 12-14-2024 CNPN Normal [facility] CNPNon 12-12-2024 CNPN Normal [facility] CNNURSEon 12-08-2024 CNNURSE Normal [facility] CNPNon 12-08-2024 CNPN Normal [facility] CT BRAIN WO IVCONon 12-08-19 CT BRAIN WO IVCON Normal [facility] CT Head WO contraston 2024 IMPRESSION: 1. [...] any questions regarding this interpretation, please call [phone]. If you are unable to reach us at the number above, please feel free to contact [facility] at [phone]. DIVISION OF RADIOLOGY * * *Final Report* * * DATE OF EXAM: Dec 07 2024 8:32AM [facility] 0504 - CT BRAIN WO IVCON / [...] tissues are unremarkable. DIVISION OF RADIOLOGY Provider, [facility] Omid [facility] - 12/07/2024 * * *Final Report* * * DATE OF EXAM: Dec 07 2024 8:32AM [facility] 0504 - CT BRAIN WO IVCON / [...] any questions regarding this interpretation, please call [phone]. If you are unable to reach us at the number above, please feel free to contact [facility] eRadiology at [phone]. [facility] Radiology Study observation (narrative) Aniket tubbs [facility] CT Head WO contrastOrdered B y: [facility]cf Provider on 12-07-2024 [facility] Ambulatory Visit Summaryon 0 12-05-2024 Ambulatory [...] Follow-Up Appointments Wednesday 9:40 AM EDT With: VICTORIA FLORES PA-C Where: [facility] [address] [place] [address]- Wednesday 8:20 AM EDT With: Carlos Sethi Where: [facility] [address] [address]- Medications What How Much When Instructions Unchanged [...] kidney stones Hospital discharge follow-up 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 Language Information Language assistance services are available as needed. Normal [facility] CNPNon 12-05-2024 CNPN Normal [facility] Family Medicine Office/Clini c Noteon 12-05-2024 Family Medicine Office/Clinic Note Family Medicine Office/Clinic Note Chief Complaint ER follow up HPI Staff Patient is presenting for ER follow up ER followup: Hospital: [facility] Visit date: 11/27/24 Symptoms the patient [...] pts has a direct number to his disease case manager rn. she is going to call her when [...] q6hr for wheezing, 60 EA, Refill(s) 0, [id number], 172, cm, 12/05/24 11:09:00 EDT, Height/Length Dosing, 84.6, kg, 12/05/24 11:09:00 EDT, Weight Dosing predniSONE, See Instructions, TAKE 3 TABLETS X 3 DAYS, 2 TABLETS X 3 DAYS, THEN 1 TABLET X 3 DAYS, # 18 tab(s), Refills(s) 2, Pharmacy: [id number], 172, cm, 12/05/24 11:09:00 EDT, Height/Length Dosing, 84.6, kg, 12/05/24 11:09:00 EDT, Weight Dosing Follow-up No qualifying data available Problem List/Past Medical History Ongoing Arthritis BMI 31.0-31.9,adult BPH with urinary obstruction Encounter to establish care Fever Flank pain Former smoker Gout Head injury History of kidney stones Hospital discharge follow-up 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 Comment on above: Result Comment: Elec tronically Signed By: Dennis CURRIE, Carlos Fowler\.br\Date and Time Signed: 12/05/24 15:02 EDT CNPNon 11-28-2024 CNPN Normal [facility] CNNURSEon 11-27-2024 CNNURSE Normal [facility] CNPNon 11-27-2024 CNPN Normal [facility] Folate SerPl-mCncon 11-28-19 25 Folate [Mass/Vol] 14.7 ng/mL Normal >4.7 [facility] Comment on above: Order Comment: Speci men Type: BLOOD SPECIMENOrdering Facility: [facility] Address: [address] [place] [address] Performed By: #### 5 0190-8, 2132-9, 2284-8 ####[facility] LABCLIA [id number] [place] [address] [place] Iron and Iron binding capaci ty panelon 11-27-2024 Iron [Mass/Vol] 32 ug/dL Low 41-186 [facility] Comment on above: Order Comment: Speci men Type: BLOOD SPECIMENOrdering Facility: [facility] Address: [address] [place] [address] Performed By: #### 5 0190-8, 9, 2284-01 ####[facility] LABIA [id number] [place] [address] [place] Iron binding capacity [Mass/Vol] 264 ug/dL Normal 232-386 [facility] Comment on above: Order Comment: Speci men Type: BLOOD SPECIMENOrdering Facility: [facility] Address: [address] [place] [address] Performed By: #### 5 0190-8, 2132-02, 2284-01 ####[facility] LABIA [id number] [place] [address] [place] Iron/TIBC [Molar ratio] 12.1 % Low 15.0-57.0 [facility] Comment on above: Order Comment: Speci men Type: BLOOD SPECIMENOrdering Facility: [facility] Address: [address] [place] [address] Performed By: #### 5 0190-8, 2132-02, 2284-01 ####[facility] LABIA [id number] [place] [address] [place] Vit B12 [facility] 025 Cobalamin (Vitamin B12) [Mass/Vol] 782 pg/mL Normal 232-1245 [facility] Comment on above: Order Comment: Speci men Type: BLOOD SPECIMENOrdering Facility: [facility] Address: [address] [place] [address] Performed By: #### 5 0190-8, 2132-02, 2284-01 ####[facility] [id number] [place] [address] [place] CNPNon 11-23-2024 CNPN Normal [facility] Population Healthon 11-22-19 Population Health Population Health Case Information Case Priority: None Programs: -- Referral Source: Bit Setter Referral Reason: Care coordination Case Type: Transition [...] kidney stones Hospital discharge follow-up 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 he is going to [facility] for an x-ray when his gets home today to check for pacemaker lead placement, was told Communication Events Date: November 21, 2024 Method: Phone call Type: Outbound Duration (min): 15 Outcome: Case discussion Contact Type: qc managertrading manager Name: Tamiko Sadler LPN Notes: -- [...] and not able to finish note. Normal [facility] XR CHEST 2 VWSon 11-21-2024 XR CHEST [...] Mccormick MD on 11/21/2024 10:29 PM Normal [facility] ANES POSTPROC EVALon 025 ANES POSTPROC EVAL Normal [facility] ANES PRE-OPon 11-20-2024 ANES PRE-OP Normal [facility] Bacteria Spec Resp Culton Bacteria identified Respiratory culture Nom (Unsp spec) Abnormal [facility] Comment on above: Performed By: #### 3 2355-0, 68074-8 ####[facility] LABCLIA [id number] [place] [address] [place] Bronchoscopyon 11-20-2024 Bronchoscopy Normal [facility] CNPNon 11-20-2024 CNPN Normal [facility] Microorganism Spec Culton Microorganism identified Cx Nom (Unsp spec) CULTURE, FUNGAL: No Fungus isolated after 28 days FUNGAL SMEAR: No fungus seen Normal [facility] Comment on above: Performed By: #### 3 2355-0, 11660-9 ####[facility] LABCLIA [id number] [place] [address] [place] Microorganism identified Cx Nom (Unsp spec) CULTURE, AFB: No Acid Fast Bacilli isolated after 42 days AFB STAIN: No acid fast bacilli seen by fluorochrome stain Normal [facility] Comment on above: Performed By: #### 3 2355-0, 51695-7 ####[facility] LABCLIA [id number] [place] [address] [place] NURSING PROGon 11-20-2024 NURSING PROG [facility] PD-L1 22C3on 11-20-2024 AP BIOMARKER DISCLAIMER Normal [facility] Comment on above: Order Comment: Speci men Type: TISSUE SPECIMENOrdering Facility: [facility] Address: [address] [place] [address] Result Comment: Babita carter Developed Test (LDT) Disclaimer:Performance characteristics of immunohistochemical, immunofluorescent and chromogenic in-situ hybridization tests have been determined by the performing laboratory within [facility]???s [facility] [place] Pathology and Laboratory Medicine Department ([facility], [facility], [facility], [facility], [facility], [facility], or [facility]) in a manner consistent with CLIA requirements. One or more of these tests have not been cleared or approved by the FDA. RT-PLM is regulated under CLIA as qualified to perform high-complexity testing. These tests are used for clinical purposes. They should not be regarded as investigational or for research. Positive and negative controls stain appropriately. Performed By: #### L [id number] ####[facility] LABCLIA [id number] [address] [address] [place] AP BLOCK ID A1 Normal [facility] Comment on above: Order Comment: Speci men Type: TISSUE SPECIMENOrdering Facility: [facility] Address: [address] [place], [place] [address] Performed By: #### L [id number] ####[facility] LABCLIA [id number] [address] [address] [facility] BIOMARKER INTERPRETATION COMMENT AND REFERENCE RANGE Normal [facility] Comment on above: Order Comment: Speci men Type: TISSUE SPECIMENOrdering Facility: [facility] Address: [address] [place] [address] Result Comment: Inte rpretation standard:TPS: The Tumor Proportion Score is the percentage of the viable tumor cells demonstrating partial or completed membrane staining of any intensity.Reference Range for PDL1 expression in Non-Small Cell Lung Cancer (NSCLC)TPS less than 1%: NegativeTPS between 1 - 49%: Low PositiveTPS greater than 50%: High PositiveThe PDL1 expression of Non-Small Cell Lung Cancer (NSCLC) is interpreted to determine if the patient should be considered for treatment with either pembrolizumab (KEYTRUDA) or cemiplimab-rwlc (LIBTAYO).Please refer to the Product label for additional information.KEYTRUDA - (https://www.keytrudaLegacy Income Propertiesp.com/prescribing-information/)LIBTAYO - (https://www.Sellaround.RedCritter/sites/default/files/Libtayo_FPI.pdf ) Performed By: #### L [id number] ####[facility] LABCLIA [id number] [address] [address] [place] BIOMARKER METHOD Normal [facility] Comment on above: Order Comment: Speci men Type: TISSUE SPECIMENOrdering Facility: [facility] Address: [address] [place], [place] [address] Performed By: #### L [id number] ####[facility] LABCLIA [id number] [address] [place] [address] [place] [facility] CASE NUMBER PD-L1 [id number] Normal [facility] Comment on above: Order Comment: Speci men Type: TISSUE SPECIMENOrdering Facility: [facility] Address: [address] [place] [address] Performed By: #### L [id number] ####[facility] LABCLIA [id number] [address], [facility]95 [place] FIXATIVE Formalin, 10% Neutra l Buffered Normal [facility] Comment on above: Order Comment: Speci men Type: TISSUE SPECIMENOrdering Facility: [facility] Address: [address] [place] [address] Performed By: #### L [id number] ####[facility] LABCLIA [id number] [address], [facility]95 [place] PD-L1 22C3 TPS (LUNG) INTERPRETATION Negative Normal [facility] Comment on above: Order Comment: Speci men Type: TISSUE SPECIMENOrdering Facility: [facility] Address: [address] [place] [address] Performed By: #### L [id number] ####[facility] LABCLIA [id number] [address], [facility]95 [place] PD-L1 TUMOR TYPE Other (See Comment) Normal [facility] Comment on above: Order Comment: Speci men Type: TISSUE SPECIMENOrdering Facility: [facility] Address: [address] [place] [address] Performed By: #### L [id number] ####[facility] LABCLIA [id number] [address], [facility]95 [place] TUMOR PROPORTION SCORE (TPS) 0 Normal [facility] Comment on above: Order Comment: Speci men Type: TISSUE SPECIMENOrdering Facility: [facility] Address: [address] [place] [address] Performed By: #### L [id number] ####[facility] LABCLIA [id number] [place] [address] [place] Pathology biopsy report Meño (Tiss)on 11-20-2024 ADDENDUM 1: Normal [facility] Comment on above: Order Comment: Speci men Type: TISSUE SPECIMENOrdering Facility: [facility] Address: [address] [place] [address] Result Comment: This addendum is issued to report that an immunohistochemical stain for p40 was performed to confirm the squamous immunophenotype of the tumor cells, which are diffusely positive for this marker. The above diagnosis remains unchanged.11/24/2024Laboratory Developed Test (LDT) Disclaimer:Performance characteristics of immunohistochemical, immunofluorescent and chromogenic in-situ hybridization tests have been determined by the performing laboratory within [facility]???s [facility] Pathology and Laboratory Medicine [place] ([facility], [facility], [facility] or [facility]) in a manner consistent with CLIA requirements. One or more of these tests have not been cleared or approved by the FDA. RT-PLMI is regulated under CLIA as qualified to perform high-complexity testing. These tests are used for clinical purposes. They should not be regarded as investigational or for research. Positive and negative controls stain appropriately.Addendum electronically signed by William Araujo V, MD on 11/24/2024 at 1049 EDT Performed By: #### 6 6121-5 ####[facility] LABCLIA [id number] [address] [place] AP DISCLAIMER Normal [facility] Comment on above: Order Comment: Speci men Type: TISSUE SPECIMENOrdering Facility: [facility] Address: [address] [place] [address] Result Comment: Babita carter Developed Test (LDT) Disclaimer:Performance characteristics of immunohistochemical, immunofluorescent, and chromogenic in-situ hybridization tests have been determined by the performing laboratory within [facility]'s [facility] Pathology and Laboratory Medicine Department ([facility], [facility], [facility] [facility], [facility], [facility], [facility], or [facility]) in a manner consistent with CLIA requirements. One or more of these tests may not have been cleared or approved by the FDA. [facility] is regulated under CLIA as qualified to perform high-complexity testing. These tests are used for clinical purposes. These should not be regarded as investigational or for research. Positive and negative controls stain appropriately. Performed By: #### 6 6121-5 ####[facility] LABCLIA [id number] [place] [id number] [place] CASE REPORT Normal [facility] Comment on above: Order Comment: Speci men Type: TISSUE SPECIMENOrdering Facility: [facility] Address: [address] [place] [address] Result Comment: Surg [facility] Pathology Report Case: [id number] Provider: Alexandre Robertson MD Collected: 11/20/2024 11:10 AMOrdering Location: Admitting Received: 11/20/2024 03:27 PMPathologist: William Araujo V, MDSpecimen: Lung, Right, Biopsy, BI EBBX Performed By: #### 6 6121-5 ####[facility] LABIA [id number] [place] [id number] [place] CLINICAL HISTORY Normal [facility] Comment on above: Order Comment: Ange hull Type: TISSUE SPECIMENOrdering Facility: [facility] Address: [address] [place] [address] Result Comment: 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] Performed By: #### 6 6121-5 ####[facility] LABIA [id number] [address] [address] [place] FINAL DIAGNOSIS Normal [facility] Comment on above: Order Comment: Ange hull Type: TISSUE SPECIMENOrdering Facility: [facility] Address: [address] [place] [address] Result Comment: Righ t lung, bronchus intermedius, endobronchial biopsy:- Squamous cell carcinoma.[place]/ 11/21/2024 at 1050 EDT Performed By: #### 6 6121-5 ####[facility] LABCLIA [id number] [address] STATES [facility] GROSS DESCRIPTION Normal [facility] Comment on above: Order Comment: Speci men Type: TISSUE SPECIMENOrdering Facility: [facility] Address: [address] [place] [address] Result Comment: A. L john, Right, BiopsyReceived in formalin are multiple pieces of cardenas-red, soft tissue aggregating to 2.1 x 0.6 x 0.1 cm. Totally submitted in one cassette.Gross examination performed at [facility], [address] [place], [place] [address]AMS November 20, 2024 6:23 PM Performed By: #### 6 6121-5 ####[facility] LABCLIA [id number] [address] OF [place] Tiss Path Bx reporton 2024 FINAL PERFORMING LAB Normal [facility] Comment on above: Order Comment: Speci men Type: TISSUE SPECIMENOrdering Facility: [facility] Address: [address] [place] [address] Result Comment: Diag nostic interpretation performed at: [facility], [address] [place] [address] CLIA# [id number] Director: Padilla López MD Performed By: #### 6 6121-5 ####[facility] LABCLIA [id number] [address] [place] Result Comment: Diag nostic interpretation performed at: [facility], [address] [place] [address] CLIA# [id number] Director: Padilla López MDElectronically signed out by: William Araujo MD Performed By: #### L [id number] ####[facility] LABCLIA [id number] [facility] [place] [address] [place] CNCNPATEDon 11-17-2024 CNCNPATED Normal [facility] CNOVon 11-17-2024 CNOV Normal [facility] CNOVSPon 11-17-2024 CNOVSP Normal [facility] CNPNon 11-17-2024 CNPN Normal [facility] CNOVon 11-15-2024 CNOV Normal [facility] ECG COMPLETEon 11-15-2024 ECG COMPLETE Normal [facility] NURSING PROGon 11-13-2024 NURSING PROG Normal [facility] Population Healthon 11-14-19 [facility] Population Health Case Information Case Priority: None Programs: -- Referral Source: Bit Setter Referral Reason: Care coordination Case Type: Transition [...] kidney stones Hospital discharge follow-up 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 Patient denies any SOB, breathing difficulties, or chest discomfort. Denies weakness. Notes he had a PCM inserted at [facility] last and that it went without complications. [...] see tcm note. Created By: Gordo Humphries Normal [facility] CBC WITH AUTO DIFFERENTIALon 11-09-2024 CELLAVISION DIFFERENTIAL TYPE CELLAVISION DIFFERENTIAL Normal [facility] Comment on above: Result Comment: This is an appended report. These results have been appended to a previously preliminary verified report. Performed By: #### C BCA #### [facility] (TT) [address] [place] [address] VIR CELLAVISION EOSINOPHILS ABSOLUTE COUNT (10*3/UL) BY MANUAL COUNT 0.2 10*3/uL Normal 0.0-0.4 [facility] Comment on above: Result Comment: This is an appended report. These results have been appended to a previously preliminary verified report. Performed By: #### C BCA #### [facility] ([facility]) [address] [place] [address] VIR CELLAVISION EOSINOPHILS PERCENT BY MANUAL COUNT 1 % Normal [facility] Comment on above: Result Comment: This is an appended report. These results have been appended to a previously preliminary verified report. Performed By: #### C BCA #### [facility] ([facility]) [address] [place] [address] VIR CELLAVISION LYMPHOCYTES ABSOLUTE COUNT (10*3/UL) BY MANUAL COUNT 1.8 10*3/uL Normal 1.0-3.5 [facility] Comment on above: Result Comment: This is an appended report. These results have been appended to a previously preliminary verified report. Performed By: #### C BCA #### [facility] ([facility]) [address] [place] [address] VIR CELLAVISION LYMPHOCYTES RELATIVE PERCENT BY MANUAL COUNT 11 % Normal [facility] Comment on above: Result Comment: This is an appended report. These results have been appended to a previously preliminary verified report. Performed By: #### C BCA #### [facility] ([facility]) [address] [place] [address] VIR CELLAVISION METAMYELOCYTES RELATIVE PERCENT BY MANUAL COUNT 2 % Normal [facility] Comment on above: Result Comment: This is an appended report. These results have been appended to a previously preliminary verified report. Performed By: #### C BCA #### [facility] ([facility]) [address] [place] [address] VIR CELLAVISION MONOCYTES ABSOLUTE COUNT (10*3/UL) IN BLOOD BY MANUAL COUNT 1.8 10*3/uL High 0.0-0.9 [facility] Comment on above: Result Comment: This is an appended report. These results have been appended to a previously preliminary verified report. Performed By: #### C BCA #### [facility] ([facility]) [address] [place] [address] VIR CELLAVISION MONOCYTES RELATIVE PERCENT BY MANUAL COUNT 11 % Normal [facility] Comment on above: Result Comment: This is an appended report. These results have been appended to a previously preliminary verified report. Performed By: #### C BCA #### [facility] ([facility]) [address] [place] [address] VIR CELLAVISION MYELOCYTE RELATIVE PERCENT BY MANUAL COUNT 1 % Normal [facility] Comment on above: Result Comment: This is an appended report. These results have been appended to a previously preliminary verified report. Performed By: #### C BCA #### [facility] ([facility]) [address] [place] [address] VIR CELLAVISION NEUTROPHILS ABSOLUTE COUNT BY MANUAL COUNT 11.5 10*3/uL High 1.5-6.6 [facility] Comment on above: Result Comment: This is an appended report. These results have been appended to a previously preliminary verified report. Performed By: #### C BCA #### [facility] ([facility]) [address] [place] [address] VIR CELLAVISION NEUTROPHILS RELATIVE PERCENT BY MANUAL COUNT 73 % Normal [facility] Comment on above: Result Comment: This is an appended report. These results have been appended to a previously preliminary verified report. Performed By: #### C BCA #### [facility] ([facility]) [address] [place] [address] VIR CELLAVISION RBC MORPHOLOGY Normal Normal [facility] Comment on above: Result Comment: This is an appended report. These results have been appended to a previously preliminary verified report. Performed By: #### C BCA #### [facility] ([facility]) [address] [place] [address] VIR Erythrocyte distribution width (RBC) [Ratio] 16.5 % High 11.5-15 [facility] Comment on above: Performed By: #### C BCA #### [facility] ([facility]) [address] [place] [address] VIR Hematocrit (Bld) [Volume fraction] 35.1 % Low 39-50 [facility] Comment on above: Performed By: #### C BCA #### [facility] ([facility]) [address] [place] [address] VIR Hemoglobin (Bld) [Mass/Vol] 11.7 g/dL Low 13-17 [facility] Comment on above: Performed By: #### C BCA #### [facility] ([facility]) [address] [place] [address] VIR MCH (RBC) [Entitic mass] 27.6 pg Normal 27-34 [facility] Comment on above: Performed By: #### C BCA #### [facility] ([facility]) [address] [place] [address] VIR MCHC (RBC) [Mass/Vol] 33.4 g/dL Normal 32-36 [facility] Comment on above: Performed By: #### C BCA #### [facility] ([facility]) [address] [place] [address] VIR MCV (RBC) [Entitic vol] 83 fL Normal 80-100 [facility] Comment on above: Performed By: #### C BCA #### [facility] ([facility]) [address] [place] [address] VIR Platelet mean volume (Bld) [Entitic vol] 6.9 fL Low 7-12 [facility] Comment on above: Performed By: #### C BCA #### [facility] ([facility]) [address] [place] [address] VIR Platelets (Bld) [#/Vol] 254 10*3/uL Normal 150-450 [facility] Comment on above: Performed By: #### C BCA #### [facility] ([facility]) [address] [place] [address] VIR RBC COUNT 4.25 X10E12/L Normal 4.1-5.7 [facility] Comment on above: Performed By: #### C BCA #### [facility] ([facility]) [address] [place] [address] VIR WBC (Bld) [#/Vol] 15.7 10*3/uL High 4-11 [facility] Comment on above: Performed By: #### C BCA #### [facility] ([facility]) [address] [place] [address] VIR COMPREHENSIVE METABOLIC PANE Paul 11-09-2024 Albumin [Mass/Vol] 3.4 g/dL Normal 3.2-5.3 [facility] Comment on above: Performed By: #### C MP #### [facility] ([facility]) [address] [place] [address] VIR ALP [Catalytic activity/Vol] 53 U/L Normal 39-130 [facility] Comment on above: Performed By: #### C MP #### [facility] ([facility]) [address] [place] [address] VIR ALT [Catalytic activity/Vol] 26 U/L Normal <=40 [facility] Comment on above: Performed By: #### C MP #### [facility] ([facility]) [address] [place] [address] VIR Anion gap [Moles/Vol] 10 mmol/L Normal 5-15 [facility] Comment on above: Performed By: #### C MP #### [facility] ([facility]) [address] [place] [address] VIR AST [Catalytic activity/Vol] 13 U/L Normal <=41 [facility] Comment on above: Performed By: #### C MP #### [facility] ([facility]) [address] [place] [address] VIR Bilirubin [Mass/Vol] 0.4 mg/dL Normal 0.3-1.2 [facility] Comment on above: Performed By: #### C MP #### [facility] ([facility]) [address] [place] [address] VIR Calcium [Mass/Vol] 8.6 mg/dL Normal 8.5-10.5 [facility] Comment on above: Performed By: #### C MP #### [facility] ([facility]) [address] [place] [address] VIR Chloride [Moles/Vol] 100 mmol/L Normal 98-109 [facility] Comment on above: Performed By: #### C MP #### [facility] ([facility]) [address] [place] [address] VIR CO2 [Moles/Vol] 28 mmol/L Normal 22-32 [facility] Comment on above: Performed By: #### C MP #### [facility] ([facility]) [address] [place] [address] VIR Creatinine [Mass/Vol] 0.65 mg/dL Normal 0.60-1.30 [facility] Comment on above: Result Comment: METH OD TRACEABLE TO IDMS STANDARD Performed By: #### C MP #### [facility] ([facility]) [address] [place] [address] VIR EGFR (CKD-EPI) NON-RACE DEPENDENT >^90 Normal >=60 [facility] Comment on above: Result Comment: Repo rted eGFR is based on the CKD-EPI 2020 equation that does not use a race coefficient. Performed By: #### C MP #### [facility] ([facility]) [address] [place] [address] VIR Glucose [Mass/Vol] 104 mg/dL High 65-99 [facility] Comment on above: Performed By: #### C MP #### [facility] ([facility]) [address] [place] [address] VIR Potassium [Moles/Vol] 4.2 mmol/L Normal 3.5-5.0 [facility] Comment on above: Performed By: #### C MP #### [facility] ([facility]) [address] [place] [address] VIR Protein [Mass/Vol] 5.8 g/dL Low 6.0-8.0 [facility] Comment on above: Performed By: #### C MP #### [facility] ([facility]) [address] [place] [address] VIR Sodium [Moles/Vol] 138 mmol/L Normal 134-146 [facility] Comment on above: Performed By: #### C MP #### [facility] ([facility]) [address] [place] [address] VIR Urea nitrogen [Mass/Vol] 25 mg/dL Normal 5-27 [facility] Comment on above: Performed By: #### C MP #### [facility] ([facility]) [address] [place] [address] VIR LACTATE W/ REFLEXon 11-10-19 25 LACTATE W/REFLEX 1.1 mmol/L Normal 0.4-2.0 [facility] Comment on above: Order Comment: Resul t did not trigger repeat Lactate, re-order if needed. Performed By: #### L ACTS #### [facility] ([facility]) [address] [place] [address] VIR PROCALCITONINon 11-09-2024 PROCALCITONIN 0.08 ng/mL High <0.05 [facility] Comment on above: Order Comment: <0.50 ng/mL - Low risk of severe sepsis and/or septic shock. <2.00 ng/mL - Recommend retesting within 6-24 hours. >2.00 ng/mL - High risk of sepsis and/or septic shock. Performed By: #### P GLENDY #### [facility] ([facility]) [address] [place] [address] VIR XR CHEST 2 VWSon 11-09-2024 XR [...] Colin MD on 11/09/2024 4:20 PM Normal [facility] APTTon 11-08-2024 aPTT Coag (Bld) [Time] 25 s Low 26-37 [facility] Comment on above: Performed By: #### P TT #### [facility] ([facility]) [address] [place] [address] VIR B-TYPE NATRIURETIC PEPTIDEon 11-08-2024 Natriuretic peptide B (Bld) [Mass/Vol] 64 pg/mL Normal <=100 [facility] Comment on above: Performed By: #### B CYCLE CONSULTANT #### [facility] ([facility]) [address] [place] [address] VIR CBC WITH AUTO DIFFERENTIALon 11-08-2024 CELLAVISION BASOPHILS ABSOLUTE COUNT (10*3/UL) BY MANUAL COUNT 0.8 10*3/uL High 0.0-0.2 [facility] Comment on above: Result Comment: This is an appended report. These results have been appended to a previously preliminary verified report. Performed By: #### C BCA #### [facility] ([address] [place] [address] VIR CELLAVISION BASOPHILS RELATIVE PERCENT BY MANUAL COUNT 5 % Normal [facility] Comment on above: Result Comment: This is an appended report. These results have been appended to a previously preliminary verified report. Performed By: #### C BCA #### [facility] ([address] [address] VIR CELLAVISION DIFFERENTIAL TYPE CELLAVISION DIFFERENTIAL Normal [facility] Comment on above: Result Comment: This is an appended report. These results have been appended to a previously preliminary verified report. Performed By: #### C BCA #### [facility] ([facility]) [address] [place] [address] VIR CELLAVISION EOSINOPHILS ABSOLUTE COUNT (10*3/UL) BY MANUAL COUNT 0.2 10*3/uL Normal 0.0-0.4 [facility] Comment on above: Result Comment: This is an appended report. These results have been appended to a previously preliminary verified report. Performed By: #### C BCA #### [facility] ([address] [address] VIR CELLAVISION EOSINOPHILS PERCENT BY MANUAL COUNT 1 % Normal [facility] Comment on above: Result Comment: This is an appended report. These results have been appended to a previously preliminary verified report. Performed By: #### C BCA #### [facility] ([address] [address] VIR CELLAVISION LYMPHOCYTES ABSOLUTE COUNT (10*3/UL) BY MANUAL COUNT 1.7 10*3/uL Normal 1.0-3.5 [facility] Comment on above: Result Comment: This is an appended report. These results have been appended to a previously preliminary verified report. Performed By: #### C BCA #### [facility] ([facility]) [address] [place] [address] VIR CELLAVISION LYMPHOCYTES RELATIVE PERCENT BY MANUAL COUNT 9 % Normal [facility] Comment on above: Result Comment: This is an appended report. These results have been appended to a previously preliminary verified report. Performed By: #### C BCA #### [facility] ([facility]) [address] [place] [address] VIR CELLAVISION MONOCYTES ABSOLUTE COUNT (10*3/UL) IN BLOOD BY MANUAL COUNT 0.5 10*3/uL Normal 0.0-0.9 [facility] Comment on above: Result Comment: This is an appended report. These results have been appended to a previously preliminary verified report. Performed By: #### C BCA #### [facility] ([address] [address] VIR CELLAVISION MONOCYTES RELATIVE PERCENT BY MANUAL COUNT 3 % Normal [facility] Comment on above: Result Comment: This is an appended report. These results have been appended to a previously preliminary verified report. Performed By: #### C BCA #### [facility] ([address] [address] VIR CELLAVISION NEUTROPHILS ABSOLUTE COUNT BY MANUAL COUNT 14.4 10*3/uL High 1.5-6.6 [facility] Comment on above: Result Comment: This is an appended report. These results have been appended to a previously preliminary verified report. Performed By: #### C BCA #### [facility] ([address] [address] VIR CELLAVISION NEUTROPHILS RELATIVE PERCENT BY MANUAL COUNT 80 % Normal [facility] Comment on above: Result Comment: This is an appended report. These results have been appended to a previously preliminary verified report. Performed By: #### C BCA #### [facility] ([address] [address] VIR CELLAVISION PROMYELOCYTES RELATIVE PERCENT BY MANUAL COUNT 2 % Normal [facility] Comment on above: Result Comment: This is an appended report. These results have been appended to a previously preliminary verified report. Performed By: #### C BCA #### [facility] ([address] [address] VIR Erythrocyte distribution width (RBC) [Ratio] 16.7 % High 11.5-15 [facility] Comment on above: Performed By: #### C BCA #### [facility] ([address] [address] VIR Hematocrit (Bld) [Volume fraction] 36.6 % Low 39-50 [facility] Comment on above: Performed By: #### C BCA #### [facility] ([address] [place] [address] VIR Hemoglobin (Bld) [Mass/Vol] 12.1 g/dL Low 13-17 [facility] Comment on above: Performed By: #### C BCA #### [facility] ([address] [place] [address] VIR MCH (RBC) [Entitic mass] 27.6 pg Normal 27-34 [facility] Comment on above: Performed By: #### C BCA #### [facility] ([address] [place] [address] VIR MCHC (RBC) [Mass/Vol] 32.9 g/dL Normal 32-36 [facility] Comment on above: Performed By: #### C BCA #### [facility] ([address] [place] [address] VIR MCV (RBC) [Entitic vol] 84 fL Normal 80-100 [facility] Comment on above: Performed By: #### C BCA #### [facility] ([address] [place] [address] VIR Platelet mean volume (Bld) [Entitic vol] 6.9 fL Low 7-12 [facility] Comment on above: Performed By: #### C BCA #### [facility] ([address] [place] [address] VIR Platelets (Bld) [#/Vol] 281 10*3/uL Normal 150-450 [facility] Comment on above: Performed By: #### C BCA #### [facility] ([address] [place] [address] VIR RBC COUNT 4.37 X10E12/L Normal 4.1-5.7 [facility] Comment on above: Performed By: #### C BCA #### [facility] ([address] [place] [address] VIR WBC (Bld) [#/Vol] 18.0 10*3/uL High 4-11 [facility] Comment on above: Performed By: #### C BCA #### [facility] ([address] [place] [address] VIR COMPREHENSIVE METABOLIC PANE Paul 11-08-2024 Albumin [Mass/Vol] 3.1 g/dL Low 3.2-5.3 [facility] Comment on above: Performed By: #### C MP #### [facility] ([address] [place] [address] VIR ALP [Catalytic activity/Vol] 60 U/L Normal 39-130 [facility] Comment on above: Performed By: #### C MP #### [facility] ([address] [address] VIR ALT [Catalytic activity/Vol] 41 U/L High <=40 [facility] Comment on above: Performed By: #### C MP #### [facility] ([address] [place] [address] VIR Anion gap [Moles/Vol] 9 mmol/L Normal 5-15 [facility] Comment on above: Performed By: #### C MP #### [facility] ([address] [place] [address] VIR AST [Catalytic activity/Vol] 19 U/L Normal <=41 [facility] Comment on above: Performed By: #### C MP #### [facility] ([address] [place] [address] VIR Bilirubin [Mass/Vol] 0.5 mg/dL Normal 0.3-1.2 [facility] Comment on above: Performed By: #### C MP #### [facility] ([address] [place] [address] VIR Calcium [Mass/Vol] 8.5 mg/dL Normal 8.5-10.5 [facility] Comment on above: Performed By: #### C MP #### [facility] ([address] [place] [address] VIR Chloride [Moles/Vol] 96 mmol/L Low 98-109 [facility] Comment on above: Performed By: #### C MP #### [facility] ([address] [place] [address] VIR CO2 [Moles/Vol] 24 mmol/L Normal 22-32 [facility] Comment on above: Performed By: #### C MP #### [facility] ([address] [place] [address] VIR Creatinine [Mass/Vol] 0.84 mg/dL Normal 0.70-1.20 [facility] Comment on above: Result Comment: METH OD TRACEABLE TO IDMS STANDARD Performed By: #### C MP #### [facility] ([address] [place] [address] VIR EGFR (CKD-EPI) NON-RACE DEPENDENT >^90 Normal >=60 [facility] Comment on above: Result Comment: eGFR not reported due to non-numeric value for Creatinine. Reported eGFR is based on the CKD-EPI 2021 equation that does not use a race coefficient. Performed By: #### C MP #### [facility] ([address] [place] [address] VIR Glucose [Mass/Vol] 134 mg/dL High 65-99 [facility] Comment on above: Performed By: #### C MP #### [facility] [address] [address] VIR Potassium [Moles/Vol] 4.2 mmol/L Normal 3.5-5.0 [facility] Comment on above: Performed By: #### C MP #### [facility] ([address] [place] [address] VIR Protein [Mass/Vol] 6.7 g/dL Normal 6.0-8.0 [facility] Comment on above: Performed By: #### C MP #### [facility] ([address] [place] [address] VIR Sodium [Moles/Vol] 129 mmol/L Low 134-146 [facility] Comment on above: Performed By: #### C MP #### [address] [place] [address] VIR Urea nitrogen [Mass/Vol] 30 mg/dL High 5-27 [facility] Comment on above: Performed By: #### C MP #### [facility] ([address] [place] [address] VIR D-DIMERon 11-08-2024 D DIMER 175 ug/mL Normal 1-255 [facility] Comment on above: Result Comment: Resu lts <255 ng/mL DDU: The presensence of a VTE can safely be excluded with a negative D-Dimer result and Wells score. A negative result doesn't exclude the possibility of DIC. The test should be repeated along with other diagnostic tests if the patient's symptoms persist or worsen. Performed By: #### D DMR #### [facility] ([address] [place] [address] VIR Family Medicine Office/Clini c Noteon 11-08-2024 Family Medicine Office/Clinic Note Family Medicine Office/Clinic Note HPI Staff Landry is a 64 year old male presenting for ER follow up [facility] Hospital: [facility] Visit date: 11/04/24 Discharge: 11/06/24 Discharge [...] index [BMI] 32.0-32.9, adult) BMI educaiton Ordered: [facility] 7 day disch 90036 6. Former smoker (Z87.891: Personal history of nicotine dependence) continue not smoking Ordered: TCM [facility] 7 day disch 72051 Follow-up No qualifying data available Problem List/Past Medical History Ongoing Arthritis BMI 31.0-31.9,adult BPH with urinary obstruction Encounter to establish care Flank pain Former smoker Gout Head injury History of kidney stones Hospital discharge follow-up Hx of fdc use of blood thinners Kidney stones Microhematuria [...] influenza virus vaccine, inactivated 03/14/2017 Recorded Normal [facility] Comment on above: Result Comment: Elec tronically Signed By: Dennis CURRIE, Carlos Fowler\.lesa\Date and Time Signed: 11/08/24 11:40 EDT MAGNESIUMon 11-08-2024 Magnesium [Mass/Vol] 2.1 mg/dL Normal 1.8-2.6 [facility] Comment on above: Performed By: #### M G #### [facility] ([address] [address] VIR POCT EKGOrdered By: Victoria Collado on 11-08-2024 [facility] PROTIME AND INRon 11-08-2024 INR 1.1 Normal 0.9-1.2 [facility] Comment on above: Performed By: #### P INR #### [facility] ([address] [address] VIR PT Coag (PPP) [Time] 12.4 s Normal 9.8-13.2 [facility] Comment on above: Performed By: #### P INR #### [facility] ([address] [address] VIR THYROID PROFILE INCLUDES TSH FT4on 11-08-2024 Free T4 [Mass/Vol] 0.88 ng/dL Normal 0.61-1.60 [facility] Comment on above: Performed By: #### T HYR #### [facility] ([address] [address] VIR TSH 0.66 uIU/mL Normal 0.49-4.67 [facility] Comment on above: Performed By: #### T HYR #### [facility] ([address] [address] VIR TROP I, HIGH SENSITIVITY 1 H OURon 11-08-2024 TROPONIN I, HIGH SENSITIVITY 4 ng/L Normal <21 [facility] Comment on above: Performed By: #### P TT #### [facility] ([facility]) [address] [place] [address] VIR TROPONIN I, HIGH SENSITIVITY 0 HOURon 11-08-2024 TROPONIN I, HIGH SENSITIVITY 4 ng/L Normal <21 [facility] Comment on above: Performed By: #### T NIHS0 #### [facility] ([facility]) [address] [place] [address] VIR XR CHEST 1 VWon 11-08-2024 XR [...] Fatima MD on 11/08/2024 5:03 PM Normal [facility] CNPNon 11-07-2024 CNPN Normal [facility] CNPNon 11-01-2024 CNPN Normal [facility] CNCNPATEDon 10-30-2024 CNCNPATED Normal [facility] CNOVSPon 10-27-2024 CNOVSP Normal [facility] CNPNon 10-27-2024 CNPN Normal [facility] NM PET w/ CT Scan Skull Base [...] a dedicated PET CT unit. Using the registered midwife\X2019\s standard software, data were reconstructed using filtered [...] Andino MD Transcribed by: DALLAS Technologist: SIGRID Aranda [facility] No Panel InformationOrdered By: Chip Carbajal on 10-16-2024 Miscellaneous Pathology Test See comment [facility] Comment on above: See report. Scanned copy available in EMR. Pathology Request for Lab Co rpon 10-16-2024 Pathology Request for Lab Kaycee Normal [facility] Comment on above: Order Comment: BRONC H BX Result Comment: See report. Scanned copy available in EMR. PERFORMED BY: [facility] [address] [place] [address] PATHOLOGIST STATION INSPECTOR ANA LILIA MCLEAN M.D. Performed By: #### M G, HS TROP, DDIMER, TSH3, CMP, BNP, CBC, [id number], PTT, PT #### [facility] [address] [id number] [facility] Order Comment: CYTOL OGY- BRONCH WASHING Family Medicine Office/Clini c Noteon 10-13-2024 Family Medicine Office/Clinic Note Family Medicine Office/Clinic Note HPI Staff Landon is a 63 year old female presenting with Establish Care: History: Any previous diagnosis: HTN, arthritis History of seeing any specialist: Glass Vial Filler ( [facility]) Urology When was your last doctors visit: June or July Last provider: Alina Cardenas Any recent labs: June or July Health Maintenance UTD: Colonoscopy: 2016- or 2017 PSA: not sure Acute: Current issues/complaints: No refills Had CT done [facility] last Wednesday- found something Biopsy scheduled [...] was previously seen by Alina Ragland in [place]. pt was recently at [facility] ER. Had CT scan of lungs. [...] injury History of kidney stones Hx of fdc use of blood thinners Kidney stones Microhematuria [...] Family History (more content not included)... Normal [facility] Comment on above: Result Comment: Elec tronically Signed By: Dennis CURRIE, Carlos Fowler\.br\Date and Time Signed: 10/13/24 12:40 EDT URINALYSIS MICROSCOPIC WITH REFLEX CULTUREon 10-07-2024 BACTERIA URINE TRACE Abnormal NONE SEEN #/HPF [facility] BILIRUBIN URINE Negative NEGATIVE [facility] BLOOD URINE TRACE-I NEGATIVE [facility] CAST SEEN? NONE SEEN NONE SEEN #/LPF [facility] Clarity (U) CLEAR CLEAR [facility] Color (U) LT. YELLOW YELLOW [facility] CRYSTALS SEEN? None Seen None Seen #/HPF [facility] GLUCOSE URINE UA Negative NEGATIVE mg/dL [facility] Interpretation and review of laboratory results Abnormal [facility] Ketones Ql (U) TRACE Abnormal NEGATIVE mg/dL [facility] Leukocyte esterase Test strip Ql (U) Negative NEGATIVE [facility] MUCUS URINE NONE SEEN NONE SEEN [facility] NITRITE URINE Negative NEGATIVE [facility] pH (U) 6.0 [pH] 5.0 - 9.0 [facility] PROTEIN URINE Negative NEG/TRACE mg/dL [facility] SPECIFIC GRAVITY URINE 1.010 1.005 - 1.025 [facility] SQUAMOUS EPITHELIAL CELL URINE RARE NONE/RARE #/LPF [facility] TBH RBC 0-2 [facility] WBC 0-2 Abnormal NONE SEEN #/HPF [facility] URINE CULTURE INDICATED NO [facility] UROBILINOGEN URINE 0.2 EU/dL 0.2 - 1.0 EU/dL [facility] COVID Cepheidon 09-08-2024 SARS-CoV-2 (COVID-19) RNA SHIRA+probe Ql (Unsp spec) COVID Cepheid [facility] Laboratory - Microbiology an d Antimicrobial susceptibilityon 09-08-2024 SARS-CoV-2 (COVID-19) RNA SHIRA+probe Ql (Unsp spec) Negative [facility] No Panel Informationon 09-08 POC Influenza A (PCR) Positive [facility] POC Influenza B (PCR) Negative [facility] X-ray reportOrdered By: Neri Lewis on 08-31-2024 [place] [address] XRay Report Signed Patient: Jatin Koch II MR#: [id number] : 1960 Acct:[id number] Age/Sex: 63 / M ADM Date: 5 Loc: XDUC Room: Type: [facility] Attending Dr: Tonja De Oliveira 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 Copies to: Tonja De Oliveira APRN~ Ordering Provider: Tonja De Oliveira APRN Date of Service: 08/31/24 XR/XR chest 2V*: COUGH Chest 2 views CLINICAL HISTORY: Dry cough for 2 months. COMPARISON: None FINDINGS: Heart normal size. Lungs are clear. No free air. XR/XR chest 2V* IMPRESSION: NO ACUTE CARDIOPULMONARY ABNORMALITY. Impression dictated by: Neftali Lewis Jr., D.ORocky08/31/2024 10:22 AM Dictation Location: [place] [address] Transcribed By: [facility] 08/31/24 1022 Dictated By: Neftali Lewis Jr, DO 08/31/24 1022 Signed By: 08/31/24 1022 [facility] XR chest 2V*on 08-31-2024 XR chest 2V* [place] [address] XRay Report Signed Patient: Jatin Koch II MR#: [id number] : 1960 Acct:[id number] Age/Sex: 63 / M ADM Date: 08/31/24 Loc: [facility] Room: Type: [facility] Attending Dr: Tonja De [...] Lewis Jr., D.ORocky08/31/2024 10:22 AM Dictation Location: [place] [address] Transcribed By: [facility] 08/31/24 1022 Dictated By: Neftali Lewis Jr, DO 08/31/24 1022 Signed By: 08/31/24 1022 Normal [facility] CBC AUTO DIFFon 11-10-2022 BASO # 0.1 103/ul Normal 0.0-0.1 [facility] Comment on above: Performed By: #### C BC #### [facility] [address] [place] [address] Dr. Jenny Stone Basophils/100 WBC (Bld) 0.6 % Normal 0.2-2.0 [facility] Comment on above: Performed By: #### C BC #### [facility] [address] [place] [address] Dr. Jenny Stone EO # 0.2 103/ul Normal 0.0-0.7 [facility] Comment on above: Performed By: #### C BC #### [facility] [address] [place] [address] Dr. Jenny Stone Eosinophils/100 WBC (Bld) 2.4 % Normal 0.9-7.0 [facility] Comment on above: Performed By: #### C BC #### [facility] [address] [place] [address] Dr. Jenny Stone Erythrocyte distribution width (RBC) [Ratio] 13.0 % Normal 11.0-15.0 [facility] Comment on above: Performed By: #### C BC #### [facility] [address] [place] [address] Dr. Jenny Stone Hematocrit (Bld) [Volume fraction] 46.1 % Normal 42.0-54.0 [facility] Comment on above: Performed By: #### C BC #### [facility] [address] [place] [address] Dr. Jenny Stone Hemoglobin (Bld) [Mass/Vol] 15.2 g/dL Normal 14.0-18.0 [facility] Comment on above: Performed By: #### C BC #### [facility] [address] [place] [address] Dr. Jenny Stone IG # 0.04 10e3/ul Critically high 0.00-0.03 [facility] Comment on above: Performed By: #### C BC #### [facility] [address] [place] [address] Dr. Jenny Stone IG % 0.5 % Normal 0.0-0.5 [facility] Comment on above: Performed By: #### C BC #### [facility] [address] [place] [address] Dr. Jenny Stone LYMPH # 2.5 103/ul Normal 1.2-3.8 [facility] Comment on above: Performed By: #### C BC #### [facility] [address] [place] [address] Dr. Jenny Stone Lymphocytes/100 WBC (Bld) 32.4 % Normal 20.5-60.0 [facility] Comment on above: Performed By: #### C BC #### [facility] [address] [place] [address] Dr. Jenny Stone MANUAL DIFF REQ NO Normal [facility] Comment on above: Performed By: #### C BC #### [facility] [address] [place] [address] Dr. Jenny Stone MCH (RBC) [Entitic mass] 29.6 pg Normal 25.9-34.0 [facility] Comment on above: Performed By: #### C BC #### [facility] [address] [place] [address] Dr. Jenny Stone MCHC (RBC) [Mass/Vol] 33.0 g/dL Normal 29.9-35.2 [facility] Comment on above: Performed By: #### C BC #### [facility] [address] [place] [address] Dr. Jenny Stone MCV (RBC) [Entitic vol] 89.7 fL Normal 80.0-94.0 [facility] Comment on above: Performed By: #### C BC #### [facility] [address] [place] [address] Dr. Jenny Stone MONO # 0.7 103/ul Normal 0.3-0.8 [facility] Comment on above: Performed By: #### C BC #### [facility] [address] [place] [address] Dr. Jenny Stone Monocytes/100 WBC (Bld) 8.6 % Normal 1.7-12.0 [facility] Comment on above: Performed By: #### C BC #### [facility] [address] [place] [address] Dr. Jenny Stone NEUT # 4.3 103/ul Normal 1.4-6.5 [facility] Comment on above: Performed By: #### C BC #### [facility] [address] [place] [address] Dr. Jenny Stone Neutrophils/100 WBC (Bld) 55.5 % Normal 43.0-75.0 [facility] Comment on above: Performed By: #### C BC #### [facility] [address] [place] [address] Dr. Jenny Stone Platelet mean volume (Bld) [Entitic vol] 9.9 fL Normal 9.5-13.5 [facility] Comment on above: Performed By: #### C BC #### [facility] [address] [place] [address] Dr. Jenny Stone PLT 177 103/ul Normal 150-450 [facility] Comment on above: Performed By: #### C BC #### [facility] [address] [address] [address] Jenny Stone RBC 5.14 106/ul Normal 4.70-6.10 [facility] Comment on above: Performed By: #### C BC #### [facility] [address] [place] [address] [address] Jenny Stone WBC 7.8 103/ul Normal 4.0-11.0 [facility] Comment on above: Performed By: #### C BC #### [facility] [address] [place] [address] Dr. Jenny Stone LIPID PROFILEon 11-10-2022 CHOL-HDL RATIO NORM SEE BELOW Normal [facility] Comment on above: Result Comment: 3.3 - 4.4 LOW RISK 4.4 - 7.1 AVERAGE RISK 7.1 - 11.0 MODERATE RISK >11.0 HIGH RISK Performed By: #### C MP, LIPID #### [facility] [address] [place] [address] Dr. Jenny Stone Cholesterol [Mass/Vol] 203 mg/dL Critically high <=200 [facility] Comment on above: Performed By: #### C MP, LIPID #### [facility] [address] [place] [address] Dr. Jenny Stone Cholesterol in HDL [Mass/Vol] 40 mg/dL Normal 40-60 [facility] Comment on above: Performed By: #### C MP, LIPID #### [facility] [address] [place] [address] Dr. Jenny Stone Cholesterol in LDL [Mass/Vol] 142.2 mg/dL Normal [facility] Comment on above: Performed By: #### C MP, LIPID #### [facility] [address] [place] [address] Dr. Jenny Stone Cholesterol.total/Kareen sterol in HDL [Mass ratio] 5.1 {ratio} Normal [facility] Comment on above: Performed By: #### C MP, LIPID #### [facility] [address] [place] [address] Dr. Jenny Stone HDL NORMAL > or = 60 mg/dl - LO W CARDIOVASCULAR RISK <40 mg/dl - HIGH CARDIOVASCULAR RISK Normal [facility] Comment on above: Performed By: #### C MP, LIPID #### [facility] [address] [place] [address] Dr. Jenny Stone LDL CALC NORMAL SEE BELOW Normal [facility] Comment on above: Result Comment: <100 mg/dl OPTIMAL 100 - 129 mg/dl NEAR OR ABOVE OPTIMAL 130 - 159 mg/dl BORDERLINE HIGH 160 - 189 mg/dl HIGH >190 mg/dl VERY HIGH Performed By: #### C MP, LIPID #### [facility] [address] [place] [address] Dr. Jenny Stone Triglyceride [Mass/Vol] 104 mg/dL Normal <=150 [facility] Comment on above: Performed By: #### C MP, LIPID #### [facility] [address] [place] [address] Dr. Jenny Stone VLDL CALC 20.8 mg/dL Normal [facility] Comment on above: Performed By: #### C MP, LIPID #### [facility] [address] [place] [address] Dr. Jenny Stone PROF 14(COMP METB)on 023 Albumin [Mass/Vol] 3.9 g/dL Normal 3.4-5.0 [facility] Comment on above: Performed By: #### C MP, LIPID #### [facility] [address] [place] [address] Dr. Jenny Stone Albumin/Globulin [Mass ratio] 1.1 {ratio} Normal [facility] Comment on above: Performed By: #### C MP, LIPID #### [facility] [address] [place] [address] Dr. Jenny Stone ALP [Catalytic activity/Vol] 70 U/L Normal 46-116 [facility] Comment on above: Performed By: #### C MP, LIPID #### [facility] [address] [place] [address] Dr. Jenny Stone ALT [Catalytic activity/Vol] 39 U/L Normal 16-63 [facility] Comment on above: Performed By: #### C MP, LIPID #### [facility] [address] [address] [address] Jenny Stone Anion gap [Moles/Vol] 14.2 mmol/L Normal Th [facility] Comment on above: Performed By: #### C MP, LIPID #### [facility] [address] [place] [address] [address] Jenny Stone AST [Catalytic activity/Vol] 23 U/L Normal 15-37 [facility] Comment on above: Performed By: #### C MP, LIPID #### [facility] [address] [address] [address] Jenny Stone Bilirubin [Mass/Vol] 0.3 mg/dL Normal 0.2-1.0 [facility] Comment on above: Performed By: #### C MP, LIPID #### [facility] [address] [place] [address] Dr. Jenny Stone Calcium [Mass/Vol] 8.5 mg/dL Normal 8.5-10.1 [facility] Comment on above: Performed By: #### C MP, LIPID #### [facility] [address] [place] [address] Dr. Jenny Stone Chloride [Moles/Vol] 102 mmol/L Normal 98-107 [facility] Comment on above: Performed By: #### C MP, LIPID #### [facility] [address] [place] [address] Dr. Jenny Stone CO2 [Moles/Vol] 30.1 mmol/L Normal 21.0-32.0 [facility] Comment on above: Performed By: #### C MP, LIPID #### [facility] [address] [address] [address] Jenny Stone Creatinine [Mass/Vol] 1.00 mg/dL Normal 0.70-1.30 [facility] Comment on above: Performed By: #### C MP, LIPID #### [facility] [address] [place] [address] Dr. Jenny Stone EGFR-AF ENGLISH >60 Normal >=60 [facility] Comment on above: Performed By: #### C MP, LIPID #### [facility] [address] [address] [address] Jenny Stone EGFR-NON AF ENGLISH >60 Normal >=60 [facility] Comment on above: Performed By: #### C MP, LIPID #### [facility] [address] [address] [address] Jenny Stone Globulin (S) [Mass/Vol] 3.5 g/dL Normal [facility] Comment on above: Performed By: #### C MP, LIPID #### [facility] [address] [address] [address] Jenny Stone Glucose [Mass/Vol] 89 mg/dL Normal 74-106 [facility] Comment on above: Performed By: #### C MP, LIPID #### [facility] [address] [place] [address] Dr. Jenny Stone Potassium [Moles/Vol] 4.3 mmol/L Normal 3.5-5.1 [facility] Comment on above: Performed By: #### C MP, LIPID #### [facility] [address] [place] [address] Dr. Jenny Stone Protein [Mass/Vol] 7.4 g/dL Normal 6.4-8.2 [facility] Comment on above: Performed By: #### C MP, LIPID #### [facility] [address] [place] [address] Dr. Jenny Stone Sodium [Moles/Vol] 142 mmol/L Normal 136-145 [facility] Comment on above: Performed By: #### C MP, LIPID #### [facility] [address] [place] [address] Dr. Jenny Stone Urea nitrogen [Mass/Vol] 17.0 mg/dL Normal 7.0-18.0 [facility] Comment on above: Performed By: #### C MP, LIPID #### [facility] [address] [place] [address] Dr. Jenny Stone Urea nitrogen/Creatinine [Mass ratio] 17.0 mg/mg Normal [facility] Comment on above: Performed By: #### C MP, LIPID #### [facility] [address] [place] [address] [address] Jenny Stone US KIDNEYSon 07-01-2022 US KIDNEYS US KIDNEYS EXAM DATE: 06/30/2022 5:55 AM MST COMPARISON: Ultrasound kidney 05/30/2021 INDICATION: Acquired renal cystic disease. TECHNIQUE: Real-time ultrasound scanning of the kidneys and bladder was performed by the shot peening operator. Blister Pack Operator static images are submitted for review. [...] by: WEI ASH Date: 2022-06-30 23:29 Normal [facility] XR KUB 1 VIEWon [...] by: FREIDA PEREZ Date: 2022-07-01 06:59 Normal [facility] Vital Signs Date Time Vital Sign Value Performing Clinician David richey 02-14-2025 11:20-0400 Body height 171.5 cm Tristin Vega 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 [employer] Work Phone: [facility] 02-14-2025 11:20-0400 Body mass index (BMI) [Ratio] 24.52 kg/m2 Tristin Marvin 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 [employer] Work Phone: [facility] 02-14-2025 11:20-0400 Body temperature 97 [degF] Tristin Marvin 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 [employer] Work Phone: [facility] 02-14-2025 11:20-0400 Body weight 72.12 kg Tristin Vega 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 [employer] Work Phone: [facility] 02-14-2025 11:20-0400 Diastolic blood pressure 69 mm[Hg] Tristin Marvin 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 [employer] Work Phone: [facility] 02-14-2025 11:20-0400 Heart rate 123 /min Tristin Marvin 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 [employer] Work Phone: [facility] 02-14-2025 11:20-0400 Respiratory rate 16 /min Tristin Marvin 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 [employer] Work Phone: [facility] 02-14-2025 11:20-0400 SaO2% (BldA) [Mass fraction] 99 % Tristin Marvin 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 [employer] Work Phone: [facility] 02-14-2025 11:20-0400 Systolic blood pressure 100 mm[Hg] Tristin Marvin 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 [employer] Work Phone: [facility] 02-13-2025 12:47-0400 Diastolic blood pressure 61 mm[Hg] Nurse Mae Work Phone: [facility] 02-13-2025 12:47-0400 Heart rate 123 /min Nurse Garcia Work Phone: [facility] 02-13-2025 12:47-0400 Respiratory rate 18 /min Nurse Celeste Work Phone: [facility] 02-13-2025 12:47-0400 SaO2% (BldA) [Mass fraction] 98 % Nurse Mae Work Phone: [facility] 02-13-2025 12:47-0400 Systolic blood pressure 91 mm[Hg] Nurse Mae Work Phone: [facility] 02-09-2025 16:01-0400 Body height 172.7 cm Shola Milan 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 [employer] Work Phone: [facility] 02-09-2025 16:01-0400 Body mass index (BMI) [Ratio] 25.24 kg/m2 Shola Milan 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 [employer] Work Phone: [facility] 02-09-2025 16:01-0400 Body weight 75.3 kg Shola Milan 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 [employer] Work Phone: [facility] 02-09-2025 16:01-0400 Diastolic blood pressure 58 mm[Hg] Shola Milan 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 [employer] Work Phone: [facility] 02-09-2025 16:01-0400 Heart rate 117 /min Shola iMlan 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 [employer] Work Phone: [facility] 02-09-2025 16:01-0400 Systolic blood pressure 96 mm[Hg] Shola Milan 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 [employer] Work Phone: [facility] 02-09-2025 10:56-0400 Body temperature 97.5 [degF] Chair Celeste Work Phone: [facility] 02-09-2025 10:56-0400 Diastolic blood pressure 60 mm[Hg] Chair Celeste Work Phone: [facility] 02-09-2025 10:56-0400 Heart rate 113 /min Chair Mae Work Phone: [facility] Comment on above: controlled a-fib with HR 70-113; pt to s ee cardiology this afternoon 02-09-2025 10:56-0400 Respiratory rate 18 /min Chair Celeste Work Phone: [facility] 02-09-2025 10:56-0400 SaO2% (BldA) [Mass fraction] 98 % Chair Mae Work Phone: [facility] 02-09-2025 10:56-0400 Systolic blood pressure 94 mm[Hg] Chair Celeste Work Phone: [facility] 02-08-2025 12:19-0400 Body temperature 97.9 [degF] Chair Celeste Work Phone: [facility] 02-08-2025 12:19-0400 Diastolic blood pressure 74 mm[Hg] Chair Mae Work Phone: [facility] 02-08-2025 12:19-0400 Heart rate 94 /min Chair Celeste Work Phone: [facility] 02-08-2025 12:19-0400 Respiratory rate 16 /min Chair Celeste Work Phone: [facility] 02-08-2025 12:19-0400 SaO2% (BldA) [Mass fraction] 97 % Chair Celeste Work Phone: [facility] 02-08-2025 12:19-0400 Systolic blood pressure 137 mm[Hg] Chair Celeste Work Phone: [facility] 02-06-2025 13:10-0400 Body temperature 98.01 [degF] Chair Celeste Work Phone: [facility] 02-06-2025 13:10-0400 Diastolic blood pressure 73 mm[Hg] Chair Mae Work Phone: [facility] 02-06-2025 13:10-0400 Heart rate 84 /min Chair Celeste Work Phone: [facility] 08-26-2025 13:10-0400 Respiratory rate 16 /min Chair Mae Work Phone: [facility] 02-06-2025 13:10-0400 SaO2% (BldA) [Mass fraction] 98 % Chair Mae Work Phone: [facility] 02-06-2025 13:10-0400 Systolic blood pressure 118 mm[Hg] Chair Mae Work Phone: [facility] 02-05-2025 09:19-0400 Body height 171.5 cm Rasheed Perez MD Work Phone: [facility] 02-05-2025 09:19-0400 Body mass index (BMI) [Ratio] 25.02 kg/m2 Rasheed Perez MD Work Phone: [facility] 02-05-2025 09:19-0400 Body temperature 97.81 [degF] Rasheed Perez MD Work Phone: [facility] 02-05-2025 09:19-0400 Body weight 73.6 kg Rasheed Perez MD Work Phone: [facility] 02-05-2025 09:19-0400 Diastolic blood pressure 63 mm[Hg] Rasheed Perez MD Work Phone: [facility] 02-05-2025 09:19-0400 Heart rate 112 /min Rasheed Perez MD Work Phone: [facility] 02-05-2025 09:19-0400 Respiratory rate 16 /min Rasheed Perez MD Work Phone: [facility] 02-05-2025 09:19-0400 SaO2% (BldA) [Mass fraction] 97 % Rasheed Perez MD Work Phone: [facility] 02-05-2025 09:19-0400 Systolic blood pressure 91 mm[Hg] Rasheed Perez MD Work Phone: [facility] 02-02-2025 11:45-0400 Body temperature 96.91 [degF] Nurse Mae Work Phone: [facility] 02-02-2025 11:45-0400 Diastolic blood pressure 51 mm[Hg] Nurse Mae Work Phone: [facility] 02-02-2025 11:45-0400 Heart rate 71 /min Nurse Mae Work Phone: [facility] 02-02-2025 11:45-0400 Respiratory rate 18 /min Nurse Celeste Work Phone: [facility] 02-02-2025 11:45-0400 SaO2% (BldA) [Mass fraction] 96 % Nurse Celeste Work Phone: [facility] 02-02-2025 11:45-0400 Systolic blood pressure 97 mm[Hg] Nurse Mae Work Phone: [facility] 01-26-2025 11:30-0400 Body temperature 97.5 [degF] Rasheed Perez MD Work Phone: [facility] 01-26-2025 11:30-0400 Diastolic blood pressure 49 mm[Hg] Rasheed Perez MD Work Phone: [facility] Comment on above: repeat 112/44 manually and resting, BP 9 4/50 standing 01-26-2025 11:30-0400 Heart rate 98 /min Rasheed Perez MD Work Phone: [facility] 01-26-2025 11:30-0400 Respiratory rate 20 /min Rasheed Perez MD Work Phone: [facility] 01-26-2025 11:30-0400 SaO2% (BldA) [Mass fraction] 99 % Rasheed Perez MD Work Phone: [facility] 01-26-2025 11:30-0400 Systolic blood pressure 115 mm[Hg] Rasheed Perez MD Work Phone: [facility] Comment on above: repeat 112/44 manually and resting, BP 9 4/50 standing 01-23-2025 08:17-0400 Body mass index (BMI) [Ratio] 25.64 kg/m2 Sheila Bundridge 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 [employer] Work Phone: [facility] 01-23-2025 08:17-0400 Body temperature 97.59 [degF] Sheila Bundridge 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 [employer] Work Phone: [facility] 01-23-2025 08:17-0400 Body weight 75.4 kg Sheila Bundridge 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 [employer] Work Phone: [facility] 01-23-2025 08:17-0400 Diastolic blood pressure 62 mm[Hg] Sheila Bundridge 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 [employer] Work Phone: [facility] 01-23-2025 08:17-0400 Heart rate 110 /min Sheila Bundridge 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 [employer] Work Phone: [facility] 01-23-2025 08:17-0400 Respiratory rate 18 /min Sheila Bundridge 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 [employer] Work Phone: [facility] 01-23-2025 08:17-0400 SaO2% (BldA) [Mass fraction] 98 % Sheila Bundridge 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 [employer] Work Phone: [facility] 01-23-2025 08:17-0400 Systolic blood pressure 92 mm[Hg] Sheila Bundridge 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 [employer] Work Phone: [facility] 01-18-2025 13:38-0400 Diastolic blood pressure 61 mm[Hg] Ezra Lizama MD Work Phone: [facility] 01-18-2025 13:38-0400 Heart rate 94 /min Ezra Lizama MD Work Phone: [facility] 01-18-2025 13:38-0400 Respiratory rate 18 /min Ezra Lizama MD Work Phone: [facility] 01-18-2025 13:38-0400 SaO2% (BldA) [Mass fraction] 94 % Ezra Lizama MD Work Phone: [facility] 01-18-2025 13:38-0400 Systolic blood pressure 90 mm[Hg] Ezra Lizama MD Work Phone: [facility] 01-18-2025 11:44-0400 Body temperature 99.2 [degF] Dominic Ryder PA-C Work Phone: [facility] 01-18-2025 11:44-0400 Diastolic blood pressure 60 mm[Hg] Dominic Ryder PA-C Work Phone: [facility] 01-18-2025 11:44-0400 Heart rate 84 /min Dominic Ryder PA-C Work Phone: [facility] 01-18-2025 11:44-0400 Respiratory rate 16 /min Dominic Ryder PA-C Work Phone: [facility] 01-18-2025 11:44-0400 SaO2% (BldA) [Mass fraction] 99 % Dominic Ryder PA-C Work Phone: [facility] 01-18-2025 11:44-0400 Systolic blood pressure 116 mm[Hg] Dominic Ryder PA-C Work Phone: [facility] 01-18-2025 05:14-0400 Body weight 74.1 kg Dominic Ryder PA-C Work Phone: [facility] 01-16-2025 15:14-0400 Body height 172.72 cm Dominic Ryder PA-C Work Phone: [facility] 01-15-2025 13:00-0400 Diastolic blood pressure 64 mm[Hg] Dominic Ryder PA-C Work Phone: [facility] 01-15-2025 13:00-0400 Heart rate 78 /min Dominic Ryder PA-C Work Phone: [facility] 01-15-2025 13:00-0400 Respiratory rate 20 /min Dominic Ryder PA-C Work Phone: [facility] 01-15-2025 13:00-0400 SaO2% (BldA) [Mass fraction] 92 % Dominic Ryder PA-C Work Phone: [facility] 01-15-2025 13:00-0400 Systolic blood pressure 98 mm[Hg] Dominic Ryder PA-C Work Phone: [facility] 01-15-2025 09:33-0400 Body temperature 98.1 [degF] Dominic Ryder PA-C Work Phone: [facility] 01-15-2025 09:32-0400 Body height 172.72 cm Dominic Ryder PA-C Work Phone: [facility] 01-15-2025 09:32-0400 Body weight 82.5 kg Dominic Ryder PA-C Work Phone: [facility] 01-15-2025 08:19-0400 Body height 171.5 cm Rasheed Perez MD Work Phone: [facility] 01-15-2025 08:19-0400 Body temperature 97.11 [degF] Rasheed Perez MD Work Phone: [facility] 01-15-2025 08:19-0400 Diastolic blood pressure 60 mm[Hg] Rasheed Perez MD Work Phone: [facility] 01-15-2025 08:19-0400 Heart rate 129 /min Rasheed Perez MD Work Phone: [facility] 01-15-2025 08:19-0400 Respiratory rate 16 /min Rasheed Perez MD Work Phone: [facility] 01-15-2025 08:19-0400 SaO2% (BldA) [Mass fraction] 98 % Rasheed Perez MD Work Phone: [facility] 01-15-2025 08:19-0400 Systolic blood pressure 88 mm[Hg] Rasheed Perez MD Work Phone: [facility] 01-12-2025 12:20-0400 Body temperature 97.5 [degF] Chair Mae Work Phone: [facility] 01-12-2025 12:20-0400 Diastolic blood pressure 53 mm[Hg] Chair Mae Work Phone: [facility] 01-12-2025 12:20-0400 Heart rate 85 /min Chair Mae Work Phone: [facility] 01-12-2025 12:20-0400 Respiratory rate 16 /min Chair Celeste Work Phone: [facility] 01-12-2025 12:20-0400 SaO2% (BldA) [Mass fraction] 96 % Chair Celeste Work Phone: [facility] 01-12-2025 12:20-0400 Systolic blood pressure 94 mm[Hg] Chair Mae Work Phone: [facility] 01-11-2025 12:30-0400 Body temperature 98.2 [degF] Chair Mae Work Phone: [facility] 01-11-2025 12:30-0400 Diastolic blood pressure 63 mm[Hg] Chair Celeste Work Phone: [facility] 01-11-2025 12:30-0400 Heart rate 85 /min Chair Mae Work Phone: [facility] 01-11-2025 12:30-0400 Respiratory rate 16 /min Chair Celeste Work Phone: [facility] 01-11-2025 12:30-0400 SaO2% (BldA) [Mass fraction] 97 % Chair Celeste Work Phone: [facility] 01-11-2025 12:30-0400 Systolic blood pressure 108 mm[Hg] Chair Celeste Work Phone: [facility] 01-10-2025 12:45-0400 Body temperature 98.1 [degF] Chair Celeste Work Phone: [facility] 01-10-2025 12:45-0400 Diastolic blood pressure 62 mm[Hg] Chair Celeste Work Phone: [facility] 01-10-2025 12:45-0400 Heart rate 87 /min Chair Celeste Work Phone: [facility] 01-10-2025 12:45-0400 Respiratory rate 18 /min Chair Mae Work Phone: [facility] 01-10-2025 12:45-0400 SaO2% (BldA) [Mass fraction] 98 % Chair Celeste Work Phone: [facility] 01-10-2025 12:45-0400 Systolic blood pressure 103 mm[Hg] Chair Mae Work Phone: [facility] 01-10-2025 12:14-0400 Body mass index (BMI) [Ratio] 29.27 kg/m2 Ezra Lizama MD Work Phone: [facility] 01-10-2025 12:14-0400 Body weight 86.1 kg Ezra Lizama MD Work Phone: [facility] 01-10-2025 12:12-0400 Diastolic blood pressure 67 mm[Hg] Nurse Mae Work Phone: [facility] 01-10-2025 12:12-0400 Heart rate 79 /min Nurse Mae Work Phone: [facility] 01-10-2025 12:12-0400 SaO2% (BldA) [Mass fraction] 95 % Nurse Mae Work Phone: [facility] 01-10-2025 12:12-0400 Systolic blood pressure 106 mm[Hg] Nurse Celeste Work Phone: [facility] 01-09-2025 11:52-0400 Body temperature 97.3 [degF] Chair Celeste Work Phone: [facility] 01-09-2025 11:52-0400 Diastolic blood pressure 57 mm[Hg] Chair Celeste Work Phone: [facility] 01-09-2025 11:52-0400 Heart rate 87 /min Chair Celeste Work Phone: [facility] 01-09-2025 11:52-0400 Respiratory rate 16 /min Chair Celeste Work Phone: [facility] 01-09-2025 11:52-0400 SaO2% (BldA) [Mass fraction] 96 % Chair Celeste Work Phone: [facility] 01-09-2025 11:52-0400 Systolic blood pressure 90 mm[Hg] Chair Celeste Work Phone: [facility] 01-08-2025 14:50-0400 Diastolic blood pressure 71 mm[Hg] Chair Celeste Work Phone: [facility] 01-08-2025 14:50-0400 Heart rate 83 /min Chair Celeste Work Phone: [facility] 01-08-2025 14:50-0400 Respiratory rate 18 /min Chair Mae Work Phone: [facility] 01-08-2025 14:50-0400 SaO2% (BldA) [Mass fraction] 97 % Chair Mae Work Phone: [facility] 01-08-2025 14:50-0400 Systolic blood pressure 109 mm[Hg] Chair Celeste Work Phone: [facility] 01-08-2025 11:04-0400 Body height 171.5 cm Chair Celeste Work Phone: [facility] Comment on above: verified by 2 RN's with shoes on 01-08-2025 09:47-0400 Diastolic blood pressure 56 mm[Hg] Rasheed Perez MD Work Phone: [facility] Comment on above: recheck 01-08-2025 09:47-0400 Systolic blood pressure 94 mm[Hg] Rasheed Perez MD Work Phone: [facility] Comment on above: recheck 01-08-2025 09:41-0400 Body height 169.5 cm Rasheed Perez MD Work Phone: [facility] 01-08-2025 09:41-0400 Body mass index (BMI) [Ratio] 28.33 kg/m2 Rasheed Perez MD Work Phone: [facility] 01-08-2025 09:41-0400 Body temperature 97.39 [degF] Rasheed Perez MD Work Phone: [facility] 01-08-2025 09:41-0400 Body weight 81.4 kg Rasheed Perez MD Work Phone: [facility] 01-08-2025 09:41-0400 Heart rate 104 /min Rasheed Perez MD Work Phone: [facility] 01-08-2025 09:41-0400 Respiratory rate 16 /min Rasheed Perez MD Work Phone: [facility] 01-08-2025 09:41-0400 SaO2% (BldA) [Mass fraction] 95 % Rasheed Perez MD Work Phone: [facility] 01-06-2025 12:00-0400 Body temperature 98.2 [degF] Dominic Ryder PA-C Work Phone: [facility] 01-06-2025 12:00-0400 Diastolic blood pressure 64 mm[Hg] Dominic Ryder PA-C Work Phone: [facility] 01-06-2025 12:00-0400 Heart rate 88 /min Dominic Ryder PA-C Work Phone: [facility] 01-06-2025 12:00-0400 Respiratory rate 16 /min Dominic Ryder PA-C Work Phone: [facility] 01-06-2025 12:00-0400 SaO2% (BldA) [Mass fraction] 97 % Dominic Ryder PA-C Work Phone: [facility] 01-06-2025 12:00-0400 Systolic blood pressure 118 mm[Hg] Dominic Ryder PA-C Work Phone: [facility] 01-06-2025 06:00-0400 Body weight 82.9 kg Dominic Ryder PA-C Work Phone: [facility] 01-03-2025 15:12-0400 Body height 170.18 cm Dominic Ryder PA-C Work Phone: [facility] 01-02-2025 20:46-0400 Body height 170.18 cm Dominic Ryder PA-C Work Phone: [facility] 01-02-2025 20:46-0400 Body temperature 98.7 [degF] Dominic Ryder PA-C Work Phone: [facility] 01-02-2025 20:46-0400 Body weight 82.4 kg Dominictylor Ryder PA-C Work Phone: [facility] 01-02-2025 20:46-0400 Diastolic blood pressure 56 mm[Hg] Dominic Ryder PA-C Work Phone: [facility] 01-02-2025 20:46-0400 Heart rate 82 /min Dominic Ryder PA-C Work Phone: [facility] 01-02-2025 20:46-0400 Respiratory rate 18 /min Dominic Ryder PA-C Work Phone: [facility] 01-02-2025 20:46-0400 SaO2% (BldA) [Mass fraction] 98 % Dominictylor Ryder PA-C Work Phone: [facility] 01-02-2025 20:46-0400 Systolic blood pressure 102 mm[Hg] Dominic Ryder PA-C Work Phone: [facility] 01-02-2025 10:53-0400 Body height 169.5 cm Rasheed Perez MD Work Phone: [facility] 01-02-2025 10:53-0400 Body mass index (BMI) [Ratio] 27.81 kg/m2 Rasheed Perez MD Work Phone: [facility] 01-02-2025 10:53-0400 Body temperature 97.9 [degF] Rasheed Perez MD Work Phone: [facility] 01-02-2025 10:53-0400 Body weight 79.9 kg Rasheed Perez MD Work Phone: [facility] 01-02-2025 10:53-0400 Diastolic blood pressure 54 mm[Hg] Rasheed Perez MD Work Phone: [facility] 01-02-2025 10:53-0400 Heart rate 69 /min Rasheed Perez MD Work Phone: [facility] 01-02-2025 10:53-0400 Respiratory rate 16 /min Rasheed Perez MD Work Phone: [facility] 01-02-2025 10:53-0400 SaO2% (BldA) [Mass fraction] 100 % Rasheed Perez MD Work Phone: [facility] 01-02-2025 10:53-0400 Systolic blood pressure 96 mm[Hg] Rasheed Perez MD Work Phone: [facility] 12-26-2024 13:53-0400 Diastolic blood pressure 62 mm[Hg] Rasheed Perez MD Work Phone: [facility] Comment on above: recheck 12-26-2024 13:53-0400 Systolic blood pressure 101 mm[Hg] Rasheed Perez MD Work Phone: [facility] Comment on above: recheck 12-26-2024 13:50-0400 Body mass index (BMI) [Ratio] 28.54 kg/m2 Rasheed Perez MD Work Phone: [facility] 12-26-2024 13:50-0400 Body temperature 97.3 [degF] Rasheed Perez MD Work Phone: [facility] 12-26-2024 13:50-0400 Body weight 82 kg Rasheed Perez MD Work Phone: [facility] 12-26-2024 13:50-0400 Heart rate 97 /min Rasheed Perez MD Work Phone: [facility] 12-26-2024 13:50-0400 Respiratory rate 18 /min Rasheed Perez MD Work Phone: [facility] 12-26-2024 13:50-0400 SaO2% (BldA) [Mass fraction] 96 % Rasheed Perez MD Work Phone: [facility] 12-07-2024 14:31-0400 Body height 172.7 cm Shola J[facility]AMILLO [facility] 12-07-2024 14:31-0400 Body mass index (BMI) [Ratio] 28.59 kg/m2 Shola Milan APRN-ABBEY Work Phone: [facility] 12-07-2024 14:31-0400 Body weight 85.28 kg Shola JARAMILLO Work Phone: [facility] 12-07-2024 14:31-0400 Diastolic blood pressure 62 mm[Hg] Shola JARAMILLO Work Phone: [facility] 12-07-2024 14:31-0400 Heart rate 90 /min Shola Milan 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 [employer] Work Phone: [facility] 12-07-2024 14:31-0400 SaO2% (BldA) [Mass fraction] 97 % Shola Milan 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 [employer] Work Phone: [facility] 12-07-2024 14:31-0400 Systolic blood pressure 110 mm[Hg] 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 [employer] Work Phone: [employer] 11-22-2024 12:31-0400 Body height 172.7 cm Shola Prabhakarhart 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 [employer] Work Phone: [facility] 11-22-2024 12:31-0400 Diastolic blood pressure 50 mm[Hg] 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 [employer] Work Phone: [employer] 11-22-2024 12:31-0400 Heart rate 92 /min Shola Prabhakarhart 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 [employer] Work Phone: [facility] [employer] 11-22-2024 12:31-0400 SaO2% (BldA) [Mass fraction] 98 % Shola Torret 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 [employer] Work Phone: [facility] [employer] 11-22-2024 12:31-0400 Systolic blood pressure 108 mm[Hg] Shola Torret 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 [employer] Work Phone: [facility] [employer] [facility] 11-17-2024 14:23-0400 Body height 169.5 cm Rasheed Perez MD Work Phone: [facility] 11-17-2024 14:23-0400 Body mass index (BMI) [Ratio] 30.25 kg/m2 Rasheed Perez MD Work Phone: [facility] 11-17-2024 14:23-0400 Body temperature 98.01 [degF] Rasheed Perez MD Work Phone: [facility] 11-17-2024 14:23-0400 Body weight 86.9 kg Rasheed Perez MD Work Phone: [facility] 11-17-2024 14:23-0400 Diastolic blood pressure 67 mm[Hg] Rasheed Perez MD Work Phone: [facility] 11-17-2024 14:23-0400 Heart rate 105 /min Rasheed Perez MD Work Phone: [facility] 11-17-2024 14:23-0400 Respiratory rate 16 /min Rasheed Perez MD Work Phone: [facility] 11-17-2024 14:23-0400 SaO2% (BldA) [Mass fraction] 99 % Rasheed Perez MD Work Phone: [facility] 11-17-2024 14:23-0400 Systolic blood pressure 100 mm[Hg] Rasheed Perez MD Work Phone: [facility] 11-17-2024 12:59-0400 Body mass index (BMI) [Ratio] 30.25 kg/m2 Ezra Lizama MD Work Phone: [facility] 11-17-2024 12:59-0400 Body weight 86.9 kg Ezra Lizama MD Work Phone: [facility] 11-15-2024 10:37-0400 Body mass index (BMI) [Ratio] 30.53 kg/m2 Alexandre Robertson MD Work Phone: [facility] 11-15-2024 10:37-0400 Body temperature 97.2 [degF] Alexandre Robertson MD Work Phone: [facility] 11-15-2024 10:37-0400 Body weight 87.7 kg Alexandre Robertson MD Work Phone: [facility] 11-15-2024 10:37-0400 Diastolic blood pressure 66 mm[Hg] Alexandre Robertson MD Work Phone: [facility] 11-15-2024 10:37-0400 Heart rate 85 /min Alexandre Robertson MD Work Phone: [facility] 11-15-2024 10:37-0400 Respiratory rate 20 /min Alexandre Robertson MD Work Phone: [facility] 11-15-2024 10:37-0400 SaO2% (BldA) [Mass fraction] 98 % Alexandre Robertson MD Work Phone: [facility] 11-15-2024 10:37-0400 Systolic blood pressure 111 mm[Hg] Alexandre Robertson MD Work Phone: [facility] 11-08-2024 14:40-0400 Body height 172.7 cm Maritza Best MD Work Phone: [facility] 11-08-2024 14:40-0400 Body mass index (BMI) [Ratio] 31.78 kg/m2 Maritza Best MD Work Phone: [facility] 11-08-2024 14:40-0400 Body weight 94.8 kg Maritza Best MD Work Phone: [facility] 11-08-2024 14:40-0400 Diastolic blood pressure 72 mm[Hg] Maritza Best MD Work Phone: [facility] 11-08-2024 14:40-0400 Heart rate 105 /min Maritza Best MD Work Phone: [facility] 11-08-2024 14:40-0400 SaO2% (BldA) [Mass fraction] 95 % Maritza Best MD Work Phone: [facility] 11-08-2024 14:40-0400 Systolic blood pressure 104 mm[Hg] Maritza Best MD Work Phone: [facility] 10-27-2024 08:49-0400 Body height 169.5 cm Rasheed Perez MD Work Phone: [facility] Comment on above: verified no shoes 10-27-2024 08:49-0400 Body mass index (BMI) [Ratio] 30.18 kg/m2 Rasheed Perez MD Work Phone: [facility] 10-27-2024 08:49-0400 Body temperature 97.7 [degF] Rasheed Perez MD Work Phone: [facility] 10-27-2024 08:49-0400 Body weight 86.7 kg Rasheed Perez MD Work Phone: [facility] 10-27-2024 08:49-0400 Diastolic blood pressure 64 mm[Hg] Rasheed Perez MD Work Phone: [facility] 10-27-2024 08:49-0400 Heart rate 95 /min Rasheed Perez MD Work Phone: [facility] 10-27-2024 08:49-0400 Respiratory rate 16 /min Rasheed Perez MD Work Phone: [facility] 10-27-2024 08:49-0400 SaO2% (BldA) [Mass fraction] 96 % Rasheed Perez MD Work Phone: [facility] 10-27-2024 08:49-0400 Systolic blood pressure 100 mm[Hg] Rasheed Perez MD Work Phone: [facility] 09-08-2024 11:32-0400 Body height 172.72 cm Alina Ragland MD Work Phone: [facility] 09-08-2024 11:32-0400 Body mass index (BMI) [Ratio] 31.5 kg/m2 Alina Ragland MD Work Phone: [facility] 09-08-2024 11:32-0400 Body temperature 97.3 [degF] Alina Ragland MD Work Phone: [facility] 09-08-2024 11:32-0400 Body weight 94 kg Alina Ragland MD Work Phone: [facility] 09-08-2024 11:32-0400 Diastolic blood pressure 64 mm[Hg] Alina Ragland MD Work Phone: [facility] 09-08-2024 11:32-0400 Heart rate 115 /min Alina Ragland MD Work Phone: [facility] 09-08-2024 11:32-0400 Respiratory rate 18 /min Alina Ragland MD Work Phone: [facility] 09-08-2024 11:32-0400 SaO2% (BldA) [Mass fraction] 96 % Alina Ragland MD Work Phone: [facility] 09-08-2024 11:32-0400 Systolic blood pressure 91 mm[Hg] Alina Ragland MD Work Phone: [facility] 08-31-2024 09:46-0400 Body height 172.72 cm Alina Ragland MD Work Phone: [facility] 08-31-2024 09:46-0400 Body mass index (BMI) [Ratio] 32.6 kg/m2 Alina Ragland MD Work Phone: [facility] 08-31-2024 09:46-0400 Body temperature 98.8 [degF] Alina Ragland MD Work Phone: [facility] 08-31-2024 09:46-0400 Body weight 97.52 kg Alina Ragland MD Work Phone: [facility] 08-31-2024 09:46-0400 Diastolic blood pressure 64 mm[Hg] Alina Ragland MD Work Phone: [facility] 08-31-2024 09:46-0400 Heart rate 62 /min Alina Ragland MD Work Phone: [facility] 08-31-2024 09:46-0400 Respiratory rate 18 /min Alina Ragland MD Work Phone: [facility] 08-31-2024 09:46-0400 SaO2% (BldA) [Mass fraction] 98 % Alina Ragland MD Work Phone: [facility] 08-31-2024 09:46-0400 Systolic blood pressure 148 mm[Hg] Alina Ragland MD Work Phone: [facility] 06-29-2023 08:51-0500 Diastolic blood pressure 84 mm[Hg] VICTORIA SANDRA [facility] 06-29-2023 08:51-0500 Mean blood pressure 107 mm[Hg] VICTORIA SANDRA [facility] 06-29-2023 08:51-0500 Systolic blood pressure 153 mm[Hg] VICTORIA SANDRA [facility] 06-29-2023 08:41-0500 Blood Pressure Location VICTORIA SANDRA [facility] 06-29-2023 08:41-0500 Diastolic blood pressure 87 mm[Hg] VICTORIA SANDRA [facility] 06-29-2023 08:41-0500 Heart rate 99 /min VICTORIA SANDRA [facility] 06-29-2023 08:41-0500 Systolic blood pressure 153 mm[Hg] VICTORIA SANDRA [facility] Encounters Encounter Date Encounter Type Care Provider Facility Start: 02-16-2025 End: 02-16-2025 Nursing evaluation of patient and report Nurse Cindy Garcia Work Phone: Radiation Oncology Comment on above: Malignant neoplasm o f lower lobe of right lung (HCC) (Primary Dx) Start: 02-16-2025 End: 02-16-2025 [facility] Facility:[facility] Start: 02-15-2025 End: 02-15-2025 Patient encounter procedure [facility] Provider [facility] Start: 02-15-2025 End: 02-15-2025 Telephone encounter Rasheed Perez MD Work Phone: Hematology/Oncology Comment on above: FMLA Paperwork Start: 02-15-2025 End: 02-15-2025 Nursing evaluation of patient and report Nurse Cindy Garcia Work Phone: Radiation Oncology Comment on above: Malignant neoplasm o f lower lobe of right lung (HCC) (Primary Dx) Start: 02-15-2025 End: 02-15-2025 ambulatory [facility] Facility:[facility] Start: 02-14-2025 End: 02-14-2025 Telephone encounter Gaetano Nathan MD Work Phone: [facility] Comment on above: Future Appointment Start: 02-14-2025 End: [facility] Start: 02-14-2025 End: 02-14-2025 Office outpatient visit 25 minutes Tristin Vega APRN.CNP Work Phone: Hematology/Oncology Comment on above: Malignant neoplasm o f lower lobe of right lung (HCC) (Primary Dx); Encounter for antineoplastic chemotherapy; Chemotherapy-induced fatigue; Weakness; Anemia due to antineoplastic chemotherapy; Protein-calorie malnutrition, unspecified severity (HCC) Start: 02-14-2025 End: 02-14-2025 Nursing evaluation of patient and report Nurse Cindy Garcia Work Phone: Radiation Oncology Comment on above: Malignant neoplasm o f lower lobe of right lung (HCC) (Primary Dx) Med Change Request Start: 02-14-2025 End: 02-14-2025 ambulatory CARLOS PERRY DENNIS Facility:[facility] Start: 02-13-2025 End: 02-13-2025 Telephone encounter Blanquita Hargrove RN Work Phone: Hematology/Oncology Comment on above: Care Coordination (T reatment plan) Start: 02-13-2025 End: 02-14-2025 ambulatory Chair 21 Mae Work Phone: Hematology/Oncology Comment on above: Dehydration (Primary Dx) Start: 02-13-2025 End: 02-13-2025 Nursing evaluation of patient and report Nurse Cindy Garcia Work Phone: Radiation Oncology Comment on above: Malignant neoplasm o f lower lobe of right lung (HCC) (Primary Dx); Dehydration Start: 02-09-2025 End: 02-09-2025 Office outpatient visit 25 minutes Shola JARAMILLO Work Phone: [facility] Comment on above: AV block (Primary Dx ); Pacemaker; Squamous cell carcinoma of lung, unspecified laterality (CMS-HCC) Start: 02-09-2025 End: 02-09-2025 Clinical Support Ppc Pacer [facility] Comment on above: Pacemaker- [place] (P rimary Dx) Start: 02-09-2025 End: 02-09-2025 Nursing evaluation of patient and report Nurse Cindy Garcia Work Phone: Radiation Oncology Comment on above: Malignant neoplasm o f lower lobe of right lung (HCC) (Primary Dx) Start: 02-09-2025 End: 02-09-2025 ambulatory Chair 15 Mae Work Phone: Hematology/Oncology Comment on above: Malignant neoplasm o f lower lobe of right lung (HCC) (Primary Dx) Start: 02-08-2025 End: 02-08-2025 Telephone encounter Blanquita Hargrove RN Work Phone: Hematology/Oncology Comment on above: Care Coordination (P ersistent hard hiccups) Start: 02-08-2025 End: 02-08-2025 Nursing evaluation of patient and report Nurse Cindy Garcia Work Phone: Radiation Oncology Comment on above: Malignant neoplasm o f lower lobe of right lung (HCC) (Primary Dx) Start: 02-08-2025 End: 02-09-2025 ambulatory Chair 15 Celeste Work Phone: Hematology/Oncology Comment on above: Malignant neoplasm o f lower lobe of right lung (HCC) (Primary Dx) Start: 02-07-2025 End: 02-07-2025 Nursing evaluation of patient and report Nurse Cindy Garcia Work Phone: Radiation Oncology Comment on above: Malignant neoplasm o f lower lobe of right lung (HCC) (Primary Dx) Start: 02-07-2025 End: 02-08-2025 ambulatory Chair 16 Mae Work Phone: Hematology/Oncology Comment on above: Malignant neoplasm o f lower lobe of right lung (HCC) (Primary Dx) Start: 02-06-2025 End: 02-06-2025 Telephone encounter Blanquita Hargrove RN Work Phone: Hematology/Oncology Comment on above: Care Coordination (M ed request) Start: 02-06-2025 End: 02-06-2025 Patient encounter procedure Madison Gagnon LMT Hematology/Oncology Start: 02-06-2025 End: 02-06-2025 Nursing evaluation of patient and report Nurse Cindy Garcia Work Phone: Radiation Oncology Comment on above: Malignant neoplasm o f lower lobe of right lung (HCC) (Primary Dx) Start: 02-06-2025 End: 02-06-2025 ambulatory Madison Gagnon T Hematology/Oncology Comment on above: Muscle soreness (Stella adriana Dx) Malignant neoplasm o f lower lobe of right lung (HCC) (Primary Dx) Start: 02-05-2025 End: 02-05-2025 ambulatory CARLOS COLLINS Facility:[facility] Start: 02-05-2025 End: 02-05-2025 Nursing evaluation of patient and report Nurse Cindy Garcia Work Phone: Radiation Oncology Comment on above: Malignant neoplasm o f lower lobe of right lung (HCC) (Primary Dx) Start: 02-05-2025 End: 02-05-2025 Office outpatient visit 25 minutes Rasheed Perez MD Work Phone: Hematology/Oncology Comment on above: Malignant neoplasm o f lower lobe of right lung (HCC) (Primary Dx) Start: 02-05-2025 End: 02-05-2025 ambulatory Chair 8 Mae Work Phone: Hematology/Oncology Comment on above: Malignant neoplasm o f lower lobe of right lung (HCC) (Primary Dx) Start: 02-02-2025 End: 02-02-2025 ambulatory [facility] Facility:[facility] Start: 02-02-2025 End: 02-02-2025 Nursing evaluation of patient and report Nurse Cindy Garcia Work Phone: Radiation Oncology Comment on above: Malignant neoplasm o f lower lobe of right lung (HCC) (Primary Dx) Start: 02-02-2025 End: 02-02-2025 ambulatory Chair 21 Mae Work Phone: Hematology/Oncology Comment on above: Dehydration (Primary Dx) Start: 02-01-2025 End: 02-01-2025 Nursing evaluation of patient and report Nurse Cindy Garcia Work Phone: Radiation Oncology Comment on above: Malignant neoplasm o f lower lobe of right lung (HCC) (Primary Dx) Start: 02-01-2025 End: 02-01-2025 [facility] Facility:[facility] Start: 01-31-2025 End: 01-31-2025 Nursing evaluation of patient and report Nurse Cindy Garcia Work Phone: Radiation Oncology Comment on above: Malignant neoplasm o f lower lobe of right lung (HCC) (Primary Dx) Start: 01-31-2025 End: 01-31-2025 ambulatory [facility] Facility:[facility] Start: 01-30-2025 End: 01-30-2025 Telephone encounter Rasheed Perez MD Work Phone: Radiation Oncology Comment on above: Patient Question Start: 01-30-2025 End: 01-30-2025 Nursing evaluation of patient and report Nurse Cindy Garcia Work Phone: Radiation Oncology Comment on above: Malignant neoplasm o f lower lobe of right lung (HCC) (Primary Dx) Start: 01-30-2025 End: 01-30-2025 Patient encounter procedure Kassidymalachi Kalin LMT Hematology/Oncology Start: 01-30-2025 End: 01-31-2025 ambulatory Kassidymalachi Kalin T Hematology/Oncology Comment on above: Muscle soreness (Stella adriana Dx) Start: 01-29-2025 End: 01-29-2025 Nursing evaluation of patient and report Nurse Cindy Garcia Work Phone: Radiation Oncology Comment on above: Malignant neoplasm o f lower lobe of right lung (HCC) (Primary Dx) Start: 01-29-2025 End: 01-29-2025 ambulatory [facility] Facility:[facility] Start: 01-26-2025 End: 01-30-2025 Telephone encounter Rasheed Perez MD Work Phone: Radiation Oncology Comment on above: Patient Update; Dizz iness FMLA Paperwork Start: 01-26-2025 End: 01-26-2025 ambulatory Chair Fermín Garcia Work Phone: Hematology/Oncology Comment on above: Fever in adult Start: 01-26-2025 End: 01-26-2025 Nursing evaluation of patient and report Ma Nurse Nick Salomon Work Phone: Hematology/Oncology Comment on above: UTI symptoms (Primar y Dx); Fever in adult Malignant neoplasm o f lower lobe of right lung (HCC) (Primary Dx) Start: 01-26-2025 End: 01-26-2025 ambulatory [facility] Facility:[facility] Start: 01-26-2025 End: 01-26-2025 Subsequent hospital visit by physician General Delvis Garcia Mc Work Phone: Radiology Comment on above: Fever in adult [R50. 9] Start: 01-25-2025 End: 01-26-2025 Telephone encounter Rasheed Perez MD Work Phone: Radiation Oncology Start: 01-25-2025 End: 01-25-2025 Nursing evaluation of patient and report Nurse Cindy Garcia Work Phone: Radiation Oncology Comment on above: Malignant neoplasm o f lower lobe of right lung (HCC) (Primary Dx) Start: 01-25-2025 End: 01-25-2025 ambulatory [facility] Facility:[facility] Start: 01-24-2025 End: 01-25-2025 Telephone encounter Rasheed Perez MD Work Phone: Radiation Oncology Comment on above: Dehydration; Weaknes s Start: 01-24-2025 End: 01-24-2025 Nursing evaluation of patient and report Nurse Cindy Garcia Work Phone: Radiation Oncology Comment on above: Malignant neoplasm o f lower lobe of right lung (HCC) (Primary Dx) Start: 01-24-2025 End: 01-24-2025 ambulatory Chair Fermín Garcia Work Phone: Hematology/Oncology Comment on above: Dehydration (Primary Dx); Malignant neoplasm of lower lobe of right lung (HCC) Start: 01-23-2025 End: 01-23-2025 E-mail encounter from caregiver Ricardo Alva RN [facility] Start: 01-23-2025 End: 01-23-2025 Patient encounter procedure Madison Gagnon LMT Hematology/Oncology Start: 01-23-2025 End: 01-23-2025 Nursing evaluation of patient and report Nurse Cindy Garcia Work Phone: Radiation Oncology Comment on above: Malignant neoplasm o f lower lobe of right lung (HCC) (Primary Dx) Start: 01-23-2025 End: 01-23-2025 ambulatory Madison Gagnon T Hematology/Oncology Comment on above: Muscle soreness (Stella adriana Dx) palliative care info rmation Start: 01-23-2025 End: 01-23-2025 ambulatory [facility] Facility:[facility] Start: 01-23-2025 End: 01-23-2025 Patient encounter procedure Sheila Freeman APRN.CNP Work Phone: Palliative Medicine Comment on above: Palliative care by s pecialist (Primary Dx); Malignant neoplasm of lower lobe of right lung (HCC); Neoplasm related pain; Constipation due to opioid therapy; Chronic cough; SOB (shortness of breath); Anorexia; Rhinorrhea Start: 01-23-2025 End: 01-23-2025 ambulatory CARLOS LORENZANAAB Facility:[facility] Start: 01-22-2025 End: 01-22-2025 ambulatory CARLOS PERRY [facility] Facility:[facility] Start: 01-22-2025 End: 01-22-2025 Nursing evaluation of patient and report Nurse Cindy Garcia Work Phone: Radiation Oncology Comment on above: Malignant neoplasm o f lower lobe of right lung (HCC) (Primary Dx) Start: 01-22-2025 End: 02-05-2025 ambulatory Carlos Fowler [facility] Facility::[id number] [phone] Start: 01-19-2025 End: 01-22-2025 ambulatory CARLOS PERRY [facility] Facility:[facility] Start: 01-18-2025 End: 01-18-2025 [facility] Start: 01-18-2025 End: 01-18-2025 Patient encounter procedure Ezra Lizama MD Work Phone: Radiation Oncology Comment on above: Malignant neoplasm o f lower lobe of right lung (HCC) (Primary Dx) Start: 01-15-2025 End: 01-23-2025 Telephone encounter Ileana Bear RN Work Phone: Hematology/Oncology Comment on above: Care Coordination (H ospital Admission) Start: 01-15-2025 End: 01-18-2025 Evaluation and management of inpatient Hayes Olivarez DO -4 [facility] Work Phone: Start: 01-15-2025 Non-patient / Non-visit Xin [facility] Start: 01-15-2025 End: 01-15-2025 ambulatory CARLOS COLLINS Facility:[facility] Start: 01-15-2025 End: 01-15-2025 Office outpatient visit 25 minutes Rasheed Perez MD Work Phone: Hematology/Oncology Comment on above: Malignant neoplasm o f lower lobe of right lung (HCC) (Primary Dx) Start: 01-15-2025 End: 01-15-2025 ambulatory CARLOS COLLINS Facility:[facility] Start: 01-12-2025 End: 01-12-2025 Nursing evaluation of patient and report Nurse Cindy Garcia Work Phone: Radiation Oncology Comment on above: Malignant neoplasm o f lower lobe of right lung (HCC) (Primary Dx) Start: 01-12-2025 End: 01-12-2025 ambulatory Chair 13 Mae Work Phone: Hematology/Oncology Comment on above: Malignant neoplasm o f lower lobe of right lung (HCC) (Primary Dx) Start: 01-11-2025 End: 01-11-2025 Telephone encounter Blanquita Hargrove RN Work Phone: Hematology/Oncology Comment on above: Care Coordination (C 1D1 treatment follow up call) Start: 01-11-2025 End: 01-11-2025 Nursing evaluation of patient and report Nurse Cindy Garcia Work Phone: Radiation Oncology Comment on above: Malignant neoplasm o f lower lobe of right lung (HCC) (Primary Dx) Start: 01-11-2025 End: 01-11-2025 ambulatory Chair 13 Mae Work Phone: Hematology/Oncology Comment on above: Malignant neoplasm o f lower lobe of right lung (HCC) (Primary Dx) Start: 01-10-2025 End: 01-10-2025 Patient encounter procedure Ezra Lizama MD Work Phone: Radiation Oncology Comment on above: Malignant neoplasm o f lower lobe of right lung (HCC) (Primary Dx) Start: 01-10-2025 End: 01-10-2025 Nursing evaluation of patient and report Nurse Cindy Garcia Work Phone: Radiation Oncology Comment on above: Malignant neoplasm o f lower lobe of right lung (HCC) (Primary Dx) Start: 01-10-2025 End: 01-10-2025 ambulatory Chair 13 Mae Work Phone: Hematology/Oncology Comment on above: Malignant neoplasm o f lower lobe of right lung (HCC) (Primary Dx) Start: 01-09-2025 End: 01-30-2025 Telephone encounter Neha Goodrich motorcycle service technician/Oncology Comment on above: Receptionist Secretary - O ther (Etoposide reaction) Start: 01-09-2025 End: 01-09-2025 Nursing evaluation of patient and report Nurse Cindy Garcia Work Phone: Radiation Oncology Comment on above: Malignant neoplasm o f lower lobe of right lung (HCC) (Primary Dx) Start: 01-09-2025 End: 01-09-2025 ambulatory Chair 13 Celeste Work Phone: Hematology/Oncology Comment on above: Malignant neoplasm o f lower lobe of right lung (HCC) (Primary Dx) Start: 01-09-2025 End: 01-09-2025 Patient encounter procedure VICTORIA FLORES [facility] Start: 01-08-2025 End: 01-08-2025 Patient encounter procedure Oswaldo Ghosh MD Work Phone: Radiation Oncology Comment on above: Malignant neoplasm o f lower lobe of right lung (HCC) (Primary Dx) Start: 01-08-2025 End: 01-08-2025 ambulatory CARLOS COLLINS Facility:[facility] Start: 01-08-2025 End: 01-08-2025 Telephone encounter Blanquita Hargrove RN Work Phone: Hematology/Oncology Comment on above: Care Coordination (A ppointment question) Low BP Start: 01-08-2025 End: 01-08-2025 Nursing evaluation of patient and report Blanquita Hargrove RN Work Phone: Hematology/Oncology Comment on above: Malignant neoplasm o f lower lobe of right lung (HCC) (Primary Dx) Start: 01-08-2025 End: 01-08-2025 Office outpatient visit 25 minutes Rasheed Perez MD Work Phone: Hematology/Oncology Comment on above: Malignant neoplasm o f lower lobe of right lung (HCC) (Primary Dx) Start: 01-08-2025 End: 01-08-2025 ambulatory Chair 9 Mae Work Phone: Hematology/Oncology Comment on above: Malignant neoplasm o f lower lobe of right lung (HCC) (Primary Dx) Start: 01-05-2025 End: 01-16-2025 ambulatory Carlos Collins Facility::[id number] [phone] Start: 01-05-2025 End: 01-08-2025 Telephone encounter Blanquita Hargrove RN Work Phone: Hematology/Oncology Comment on above: Care Coordination (C 1D1 treatment follow up call) Care Coordination (H ospital admission) Start: 01-04-2025 End: 01-04-2025 Telephone encounter Oswaldo Ghosh MD Work Phone: Radiation Oncology Comment on above: Patient Update; Futu re Appointment Start: 01-03-2025 End: 01-04-2025 Telephone encounter Rasheed Perez MD Work Phone: Hematology/Oncology Start: 01-02-2025 End: 01-06-2025 Evaluation and management of inpatient Norah Whittaker MD -4 [facility] Work Phone: Start: 01-02-2025 End: 01-02-2025 Office outpatient visit 25 minutes Rasheed Perez MD Work Phone: Hematology/Oncology Comment on above: Malignant neoplasm o f lower lobe of right lung (HCC) (Primary Dx) Start: 01-02-2025 End: 01-02-2025 ambulatory Chair 11 Mae Work Phone: Hematology/Oncology Comment on above: Malignant neoplasm o f lower lobe of right lung (HCC) (Primary Dx) Start: 12-29-2024 End: 12-29-2024 ambulatory CATRACHO YOUSSEF Facility:[facility] Start: 12-26-2024 End: 12-26-2024 Patient encounter procedure Madison Gagnon LMT Hematology/Oncology Start: 12-26-2024 End: 12-26-2024 Office outpatient visit 15 minutes Rasheed Perez MD Work Phone: Hematology/Oncology Comment on above: Malignant neoplasm o f lower lobe of right lung (HCC) (Primary Dx) Start: 12-26-2024 End: 12-26-2024 Telephone encounter Rasheed Perez MD Work Phone: Hematology/Oncology Comment on above: Care Coordination (P otassium Results) Start: 12-26-2024 End: 12-26-2024 ambulatory Kassidymalachi Gagnon LMT Hematology/Oncology Comment on above: Muscle soreness (Stella adriana Dx) Start: 12-26-2024 End: 12-26-2024 ambulatory CARLOS PERRY [facility] Facility:[facility] Start: 12-26-2024 Encounter for other preprocedural examination [facility] Start: 12-25-2024 End: 01-08-2025 Telephone encounter Xiomara Wright RN [facility] Comment on above: New AF; PPM upper ra te behavior Start: 12-25-2024 End: 01-03-2025 ambulatory CATRACHO YOUSSEF Facility:CD:[id number] [phone] Start: 12-22-2024 End: 12-22-2024 Telephone encounter Ileana Bear RN Work Phone: Hematology/Oncology Comment on above: Care Coordination (D ischarge Follow Up Call) Start: 12-18-2024 End: 12-22-2024 Telephone encounter Ezra Lizama MD Work Phone: Radiation Oncology Comment on above: Future Appointment Care Coordination (H ospital admission) Start: 12-14-2024 End: 01-09-2025 Telephone encounter Ezra Lizama MD Work Phone: Radiation Oncology Comment on above: Patient Update; Appo intment Start: 12-12-2024 End: 12-12-2024 Telephone encounter Blanquita Hargrove RN Work Phone: Hematology/Oncology Comment on above: Care Coordination (P .T.) Start: 12-11-2024 End: 12-11-2024 Patient encounter procedure [facility] Provider [facility] Department Start: 12-08-2024 End: 12-15-2024 Patient encounter procedure Ezra Lizama MD Work Phone: Radiation Oncology Start: 12-08-2024 End: 12-15-2024 Radiation Oncology Note Ezra Lizama MD Work Phone: Radiation Oncology Comment on above: Simulation Note Treatment Planning Start: 12-08-2024 End: 12-11-2024 Telephone encounter Blanquita Hargrove RN Work Phone: Hematology/Oncology Comment on above: Care Coordination (r esults) Care Coordination (F oundation one testing question) Start: 12-08-2024 End: 12-08-2024 Nursing evaluation of patient and report Nurse Cindy Garcia Work Phone: Radiation Oncology Comment on above: Malignant neoplasm o f lower lobe of right lung (HCC) (Primary Dx) Start: 12-08-2024 End: 12-08-2024 ambulatory CARLOS COLLINS Facility:[facility] Start: 12-07-2024 End: 12-07-2024 Postop follow up visit related to original px Shola Prabhakarhart 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 [employer] Work Phone: [facility] Comment on above: Pacemaker (Primary D x); AV block; Squamous cell carcinoma of lung, unspecified laterality ([facility]-H[facility]) Start: 12-07-2024 End: 12-07-2024 Clinical Support Ppc Pacer [facility] Comment on above: Pacemaker (Primary D x) Start: 12-07-2024 ambulatory [facility] Facili ty:[facility] Start: 12-07-2024 End: 12-07-2024 Subsequent hospital visit by physician Arrival Time Radiology Work Phone: Radiology Pet CT Comment on above: Malignant neoplasm o f lower lobe of right lung (HCC) [C34.31] Start: 12-05-2024 End: 12-08-2024 Telephone encounter Blanquita Hargrove RN Work Phone: Hematology/Oncology Comment on above: Care Coordination (C linical update) Start: 12-05-2024 End: 12-05-2024 ambulatory Carlos Fowler Dennis Facility: [facility] Start: 11-28-2024 End: 11-29-2024 Telephone encounter Ezra Lizama MD Work Phone: Radiation Oncology Comment on above: Patient Update; Futu re Appointment Start: 11-27-2024 End: 11-27-2024 Refill Blanquita Hargrove RN Work Phone: Hematology/Oncology Comment on above: Refill Request; Care Coordination (Treatment prep) Malignant neoplasm o f lower lobe of right lung (HCC) (Primary Dx) Care Coordination (C linical update) Patient Update Start: 11-23-2024 End: 11-28-2024 Orders Only Alexandre Robertson MD Work Phone: Pulmonary Medicine Comment on above: Pneumonia of right l ower lobe due to methicillin resistant Staphylococcus aureus (MRSA) (HCC) (Primary Dx) Patient Update; Elise ent Question Medication Request Start: 11-22-2024 End: 11-22-2024 Postop follow up visit related to original px Shola Mark Bjorn 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 [employer] Work Phone: [facility] Comment on above: AV block (Primary Dx ); Squamous cell carcinoma of lung, unspecified laterality (CMS-HCC); Pacemaker Start: 11-22-2024 End: 11-22-2024 Clinical Support Ppc Pacer [facility] Comment on above: Pacemaker- [place] (P rimary Dx) Start: 11-21-2024 End: 11-21-2024 ambulatory [facility] Start: 11-20-2024 End: 11-20-2024 Telephone encounter Carolina Cooney RN Cardiology Start: 11-20-2024 End: 11-20-2024 ambulatory CARLOS BERKLEY DENNIS Facility:[facility] Start: 11-20-2024 End: 11-20-2024 Subsequent hospital visit by physician Alexandre Robertson MD Work Phone: Cardiology Comment on above: 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] Start: 11-17-2024 End: 11-17-2024 Office outpatient visit 15 minutes Rasheed Perez MD Work Phone: Hematology/Oncology Comment on above: Malignant neoplasm o f lower lobe of right lung (HCC) (Primary Dx) Start: 11-17-2024 End: 12-22-2024 Telephone encounter Josseline Stewart RN [facility] Comment on above: Planning radiation t reatments to lung Appointment Patient Update Start: 11-17-2024 End: 11-17-2024 Patient encounter procedure Ezra Lizama MD Work Phone: Radiation Oncology Comment on above: Malignant neoplasm o f lower lobe of right lung (HCC) Start: 11-17-2024 End: 11-17-2024 ambulatory Cassia Cantu RN Radiation Oncology Comment on above: Patient Education Start: 11-15-2024 ambulatory [facility] Start: 11-15-2024 End: 11-15-2024 Chart abstracting Shola Milan 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 [employer] Work Phone: [facility] Start: 11-15-2024 End: 11-15-2024 Patient encounter status [id number] Main Work Phone: [facility] Start: 11-15-2024 End: 11-15-2024 ambulatory [facility] Cardiology Start: 11-15-2024 End: 11-15-2024 Patient encounter procedure Alexandre Robertson MD Work Phone: Pulmonary Medicine Comment on above: 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); Bronchial obstruction Start: 11-15-2024 End: 11-15-2024 ambulatory CARLOS COLLINS Facility:[facility] Start: 11-09-2024 End: 11-09-2024 ambulatory [facility] Start: 11-09-2024 End: 11-09-2024 Evaluation and management of inpatient [facility] Start: 11-08-2024 End: 11-08-2024 Emergency department patient visit [facility] Start: 11-08-2024 End: 11-08-2024 Office outpatient new 60 minutes Maritza Best MD Work Phone: [facility] Comment on above: Syncope, unspecified syncope type (Primary Dx) Start: 11-08-2024 End: 11-08-2024 ambulatory MARITZA BEST [facility] Start: 11-08-2024 End: 11-08-2024 ambulatory Carlos L Dennis Facility:[facility] Start: 11-07-2024 End: 11-08-2024 Telephone encounter Victoria Collado [facility] Comment on above: [place] Paperwork Start: 11-07-2024 End: 12-12-2024 ambulatory Carlos L Dennis Facility::[id number] [phone] Start: 2024 ambulatory Carlos L Dennis Facility: [facility] Start: 10-30-2024 End: 10-30-2024 ambulatory CARLOS BERKLEY DENNIS Facility:[facility] Start: 10-27-2024 End: 11-28-2024 Telephone encounter Janell An Pulmonary Medicine Comment on above: Bronchoscopy Referra l Start: 10-27-2024 End: 10-27-2024 Office outpatient new 60 minutes Rasheed Perez MD Work Phone: Hematology/Oncology Comment on above: Malignant neoplasm o f lower lobe of right lung (HCC) (Primary Dx) Start: 10-27-2024 End: 10-27-2024 ambulatory CARLOS BERKLEY DENNIS Facility:[facility] Start: 10-25-2024 End: 10-25-2024 Chart abstracting Rasheed Perez MD Work Phone: Hematology/Oncology Start: 10-18-2024 End: 01-16-2025 ambulatory CHIP CARBAJAL Facility:[facility] Start: 10-16-2024 End: 10-16-2024 ambulatory Alina Ragland MD Work Phone: [facility] Work Phone: Start: 10-16-2024 End: 10-16-2024 Departed Referred Alina Ragland MD Work Phone: [facility] Start: 10-13-2024 End: 10-13-2024 ambulatory Carlos L Dennis Facility[facility] Start: 10-10-2024 ambulatory Carlos Dennis Facility:[facility] Start: 10-07-2024 End: 10-07-2024 Clinisync Result Encounter Marvel SESAY Work Phone: [facility] External Department Unsolicited Start: 10-07-2024 End: 10-07-2024 Clinisync Result Encounter Marvel SESAY Work Phone: [facility] External Department Unsolicited Start: 10-06-2024 End: 10-08-2024 Clinisync Result Encounter Marvel SESAY Work Phone: [facility] External Department Unsolicited Start: 10-06-2024 End: 10-08-2024 Clinisync Result Encounter Marvel SESAY Work Phone: [facility] External Department Unsolicited Start: 09-08-2024 End: 09-08-2024 ambulatory Alina Ragland MD Work Phone: [facility] Work Phone: Start: 09-08-2024 End: 09-08-2024 Patient encounter procedure Alina Ragland MD Work Phone: [facility] Work Phone: Start: 08-31-2024 End: 08-31-2024 ambulatory Alina Ragland MD Work Phone: [facility] Work Phone: Start: 08-31-2024 End: 08-31-2024 Patient encounter procedure Alina Ragland MD Work Phone: [facility] Work Phone: Start: 07-13-2024 Non-patient / Non-visit Cinthya Ragland MD Work Phone[facility] Work Phone: Start: 06-29-2023 End: 06-29-2023 Patient encounter procedure VICTORIA FLORES [facility] Start: 11-11-2022 Encounter for genera l adult medical examination without abnormal findings DR ALINA RAGLAND [facility] Start: 11-10-2022 End: 11-11-[address] ALINA RAGLAND Facility:[facility] Start: 11-10-2022 End: 11-11-2022 Encounter for general adult medical examination without abnormal findings DR ALINA RAGLAND Facility:[facility] Start: 06-30-2022 End: 07-01-2022 ambulatory VICTORIA FLORES Facility:[facility] Start: 06-17-2022 End: 06-18-2022 ambulatory VICTORIA FLORES Facility:[facility] Procedures Date Procedure Procedure Detail Performing Clinician Start: 02-09-2025 Ecg routine ecg w/le ast 12 lds w/i&r Shola Milan 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 [employer] Work Phone: Start: 01-26-2025 Urnls dip stick/tabl et rgnt auto w/o microscopy Rasheed Perez MD Work Phone: Start: 01-26-2025 Radiologic exam ches t 2 views Rasheed Perez MD Work Phone: Start: 01-24-2025 CBC + DIFF Ezra Lizama MD Work Phone: Start: 01-24-2025 Comprehensive metabo lic panel Ezra Lizama MD Work Phone: Start: 01-15-2025 CT angiography of thorax Dominic Ryder PA-C Work Phone: Start: 01-05-2025 Aerobic microbial culture Dominic Ryder PA-C Work Phone: Start: 01-05-2025 Gram stain microscopy A rtjerad Ryder PA-C Work Phone: Start: 01-04-2025 Plain chest X-ray Sania Ryder PA-C Work Phone: Start: 01-03-2025 Nasal Screen MRSA/MSSA Dominic Ryder PA-C Work Phone: Start: 01-03-2025 Plain chest X-ray Sania Ryder PA-C Work Phone: Start: 01-02-2025 CT angiography of thorax Dominic Ryder PA-C Work Phone: Start: 01-02-2025 Bacteria identified in Blood by Culture Dominic Ryder PA-C Work Phone: Start: 01-02-2025 CT of head without contrast Dominic Ryder PA-C Work Phone: Start: 01-02-2025 Plain chest X-ray Sania Ryder PA-C Work Phone: Start: 12-07-2024 Ct head/brain w/o co ntrast material Rasheed Perez MD Work Phone: Start: 11-22-2024 Follow-up visit Follow-up SHOLA MILAN Start: 11-20-2024 Prgrmg dev eval implantable subq lead dfb system Alexandre Robertson MD Work Phone: Start: 11-15-2024 Ecg routine ecg w/le ast 12 lds i&r only Maryuri Loewry MD Work Phone: Start: 11-09-2024 Adult depression scr eening assessment Shola Milan 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 Jenny Stone Start: 09-30-2020 Lipid 1996 panel - S karihsma or Plasma Rasheed Perez MD Work Phone: Start: 05-17-2019 Transurethral prostatectomy VICTORIA FLORES Start: 12-08-2018 Cystoscopy VICTORIA BLACKBURN Colonoscopy VICTORIA SANDRA Tonsillectomy VICTORIA FLORES Plan of Treatment Date Care Activity Detail Author Start: 2036 RSV Vaccine (1 - 1-dose 75+ series) RSV Vaccine (1 - 1-dose 75+ series) [facility] Start: 02-15-2028 Diabetes Screening Diabetes Screening [facility] Start: 02-06-2028 Diabetes Screening Diabetes Screening [facility] Start: 01-25-2028 Diabetes Screening Diabetes Screening [facility] Start: 01-16-2028 Diabetes Screening Diabetes Screening [facility] Start: 01-09-2028 Diabetes Screening Diabetes Screening [facility] Start: 01-03-2028 Diabetes Screening Diabetes Screening [facility] Start: 12-27-2027 Diabetes Screening Diabetes Screening [facility] Start: 11-10-2027 Diabetes Screening Diabetes Screening [facility] Start: 12-07-2025 Adult BMI Screening Adult BMI Screening [facility] Start: 12-07-2025 Tobacco Screening Tobacco Screening [facility] Start: 11-22-2025 Tobacco Screening Tobacco Screening [facility] Start: 11-09-2025 Adult BMI Screening Adult BMI Screening [facility] Start: 11-09-2025 Depression Screening Depression Screening [facility] Start: 11-09-2025 Tobacco Screening Tobacco Screening [facility] Start: 11-08-2025 Adult BMI Screening Adult BMI Screening [facility] Start: 11-08-2025 Tobacco Screening Tobacco Screening [facility] Start: 09-30-2025 Lipid panel Lipid Screening [facility] Start: 05-30-2025 End: 05-30-2025 Clinical Support [facility] Start: 05-28-2025 End: 05-28-2025 Patient encounter procedure 05/28/2025 11:30 AM EST Office Visit Radiation Oncology [address] [place] [address] Ezra Lizama MD [address] [place] [address] 3-4 month final radiation follow up Radiation Oncology Comment on above: 3-4 month final radiation follow up Start: 05-27-2025 Screening for malignant neoplasm of colon [facility] Start: 02-22-2025 End: 02-22-2025 Nursing evaluation of patient and report 02/22/2025 11:45 AM EDT Nurse Visit Radiation Oncology [address] [place] [address] Mae, Nurse Radt [address] [place] [address] pulse monitoring Radiation Oncology Comment on above: pulse monitoring Start: 02-22-2025 End: 02-22-2025 Patient encounter procedure 02/22/2025 11:45 AM EDT Appointment Radiation Oncology [address] [place] [address] Lung Radiation Oncology Comment on above: Lung Start: 02-21-2025 End: 02-21-2025 Nursing evaluation of patient and report 02/21/2025 11:45 AM EDT Nurse Visit Radiation Oncology [address] [place] [address] Mae, Nurse Radt [address] [place] [address] pulse monitoring Radiation Oncology Comment on above: pulse monitoring Start: 02-21-2025 End: 02-21-2025 Follow-up encounter Hematology/Oncol ogy Comment on above: lab follow up and chemotx Cisplatin + IV MAG - PUT PATIENT BACK ON WEDNESDAY Start: 02-21-2025 End: 02-21-2025 Patient encounter procedure 02/21/2025 8:45 AM EDT Office Visit [facility] [address] [place] [address] lab follow up and chemotx Cisplatin + IV MAG - PUT PATIENT BACK ON WEDNESDAY [facility] Comment on above: lab follow up and chemotx Cisplatin + IV MAG - PUT PATIENT BACK ON WEDNESDAY Start: 02-21-2025 End: 02-21-2025 Patient encounter procedure Radiation Oncology Comment on above: Lung Location: [facility] T[facility] REV Lung - 845 LAB, 9 RE DDY, 930 CHEMO x6 HRS Start: 02-20-2025 End: 02-20-2025 Nursing evaluation of patient and report 02/20/2025 11:45 AM EDT Nurse Visit Radiation Oncology [address] [place] [address] Mae, Nurse Radt [address] [place] [address] pulse monitoring Radiation Oncology Comment on above: pulse monitoring Start: 02-20-2025 End: 02-20-2025 Patient encounter procedure Radiation Oncology Comment on above: Lung Lung- Pall med 10:30 Start: 02-20-2025 End: 02-20-2025 Patient encounter procedure 02/20/2025 10:30 AM EDT Office Visit Palliative Medicine [address] [place] [address] Sheila Freeman, 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 [employer] [address] [place] [address] 4 week follow up Palliative Medicine Comment on above: 4 week follow up Start: 02-19-2025 End: 02-19-2025 Nursing evaluation of patient and report 02/19/2025 11:45 AM EDT Nurse Visit Radiation Oncology [address] [place] [address] Mae, Nurse Radt [address] [place] [address] pulse monitoring Radiation Oncology Comment on above: pulse monitoring Start: 02-19-2025 End: 02-19-2025 Patient encounter procedure 02/19/2025 11:45 AM EDT Appointment Radiation Oncology [address] [place] [address] Lung Radiation Oncology Comment on above: Lung Start: 02-16-2025 End: 02-16-2025 Nursing evaluation of patient and report 02/16/2025 11:45 AM EDT Nurse Visit Radiation Oncology [address] [place] [address] Celeste, Nurse Radt [address] [place] [address] pulse monitoring Radiation Oncology Comment on above: pulse monitoring Start: 02-16-2025 End: 02-16-2025 Patient encounter procedure 02/16/2025 11:45 AM EDT Appointment Radiation Oncology [address] [place] [address] Lung Radiation Oncology Comment on above: Lung Start: 02-15-2025 End: 02-15-2025 Nursing evaluation of patient and report 02/15/2025 11:45 AM EDT Nurse Visit Radiation Oncology [address] [place] [address] Mae, Nurse Radt [address] [place] [address] pulse monitoring Radiation Oncology Comment on above: pulse monitoring Start: 02-15-2025 End: 02-15-2025 Patient encounter procedure 02/15/2025 11:45 AM EDT Appointment Radiation Oncology [address] [place] [address] Lung Radiation Oncology Comment on above: Lung Start: 02-14-2025 End: 02-14-2025 Nursing evaluation of patient and report 02/14/2025 11:45 AM EDT Nurse Visit Radiation Oncology [address] [place] [address] Celeste, Nurse Radt [address] [place] [address] pulse monitoring Radiation Oncology Comment on above: pulse monitoring Start: 02-14-2025 End: 02-14-2025 Follow-up encounter Hematology/Oncol ogy Comment on above: lab follow up and chemotx Cisplatin - PU T PATIENT BACK ON WEDNESDAY lab follow up and ch emotx Cisplatin + IV MAG - PUT PATIENT BACK ON WEDNESDAY Start: 02-14-2025 End: 02-14-2025 Patient encounter procedure Radiation Oncology Comment on above: Location: [facility] Lung lab follow up and ch emotx Cisplatin - PUT PATIENT BACK ON WEDNESDAY Lung- chemo at 9:45- recheck all ssds lab follow up and ch emotx Cisplatin + IV MAG - PUT PATIENT BACK ON WEDNESDAY Start: 02-13-2025 End: 02-13-2025 ambulatory 02/13/2025 12:30 PM EDT Visit (SP) Office Hematology/Oncology [address] [place] [address] [place] [address] Madison Gagnon, TERRANCE massage-pt in [facility] Hematology/Oncol og Comment on above: massage-pt in [facility] Start: 02-13-2025 End: 02-13-2025 Nursing evaluation of patient and report 02/13/2025 11:45 AM EDT Nurse Visit Radiation Oncology [address] [place] [address] Mae, Nurse Radt [address] [place] [address] [place] [address] pulse monitoring Radiation Oncology Comment on above: pulse monitoring Start: 02-13-2025 End: 02-13-2025 Patient encounter procedure Radiation Oncology Comment on above: Lung Lung- massage 12:30 Start: 02-12-2025 End: 05-14-2025 CBC W Auto Differential panel - Blood COMPLETE BLOOD COUNT AND DIFFERENTIAL Lab Routine Malignant neoplasm of lower lobe of right lung (HCC) Expected: 02/12/2025 (Approximate), Expires: 05/14/2025 [facility] Work Phone: Comment on above: Expected: 02/12/2025 (Approximate), Expi res: 05/14/2025 Start: 02-12-2025 End: 05-14-2025 Comprehensive metabolic 2000 panel - Serum or Plasma COMPREHENSIVE METABOLIC PANEL Lab Routine Malignant neoplasm of lower lobe of right lung (HCC) Expected: 02/12/2025 (Approximate), Expires: 05/14/2025 [facility] Comment on above: Expected: 02/12/2025 (Approximate), Expi res: 05/14/2025 Start: 02-12-2025 Influenza vaccination [facility] [employer] Start: 02-09-2025 End: 02-09-2026 Device Interrogation Device Interrogation Cardiac Services Routine AV block Pacemaker Expected: 02/09/2025, Expires: 02/09/2026 [facility] Work Phone: Comment on above: Expected: 02/09/2025, Expires: Start: 02-09-2025 End: 02-09-2025 Nursing evaluation of patient and report 02/09/2025 11:45 AM EDT Nurse Visit Radiation Oncology [address] [place] [address] Mae, Nurse Radt [address] [place] [address] pulse monitoring Radiation Oncology Comment on above: pulse monitoring Start: 02-09-2025 End: 02-09-2025 ambulatory Hematology/Oncol ogy Comment on above: Etoposide day 1-5 Etoposide phosphate day 1-5 Start: 02-09-2025 End: 02-09-2025 Patient encounter procedure Radiation Oncology Comment on above: Lung Lung, pt has chemo 1 030 and cardiology in [place] afternoon Start: 02-08-2025 End: 02-08-2025 ambulatory Hematology/Oncol ogy Comment on above: Etoposide day 1-5 Etoposide phosphate day 1-5 Start: 02-08-2025 End: 02-08-2025 Nursing evaluation of patient and report 02/08/2025 11:45 AM EDT Nurse Visit Radiation Oncology [address] [place] [address] Mae, Nurse Radt [address] [place] [address] pulse monitoring Radiation Oncology Comment on above: pulse monitoring Start: 02-08-2025 End: 02-08-2025 Patient encounter procedure Radiation Oncology Comment on above: Lung Lung- chemo 1 (2 hrs ) Start: 02-07-2025 End: 02-07-2025 ambulatory Hematology/Oncol ogy Comment on above: Etoposide day 1-5 Etoposide phosphate day 1-5 Start: 02-07-2025 End: 02-07-2025 Nursing evaluation of patient and report 02/07/2025 11:45 AM EDT Nurse Visit Radiation Oncology [address] [place] [address] Mae, Nurse Radt [address] [place] [address] pulse monitoring Radiation Oncology Comment on above: pulse monitoring Start: 02-07-2025 End: 02-07-2025 Patient encounter procedure Radiation Oncology Comment on above: Lung Location: [facility] Lung- chemo 1 (2 hrs ) Start: 02-06-2025 End: 02-06-2025 ambulatory Hematology/Oncol ogy Comment on above: Etoposide day 1-5 massage-pt in lobby Etoposide phosphate day 1-5 Start: 02-06-2025 End: 02-06-2025 Nursing evaluation of patient and report 02/06/2025 11:45 AM EDT Nurse Visit Radiation Oncology [address] [place] [address] Mae, Nurse Radt [address] [place] [address] pulse monitoring Radiation Oncology Comment on above: pulse monitoring Start: 02-06-2025 End: 02-06-2025 Patient encounter procedure Radiation Oncology Comment on above: Lung Lung- massage 12:30, chemo 1 (2 hrs) Start: 02-05-2025 End: 02-05-2025 Nursing evaluation of patient and report 02/05/2025 11:45 AM EDT Nurse Visit Radiation Oncology [address] [place] [address] Mae, Nurse Radt [address] [place] [address] pulse monitoring Radiation Oncology Comment on above: pulse monitoring Start: 02-05-2025 End: 02-05-2025 Follow-up encounter Hematology/Oncol ogy Comment on above: lab follow up and chemotx Cisplatin + Et oposide day 1-5 lab follow up and ch emotx Cisplatin + Etoposide day 1-5 + MAGNESIUM lab follow up and ch emotx Cisplatin + Etoposide phosphate day 1-5 + MAGNESIUM Start: 02-05-2025 End: 02-05-2025 Patient encounter procedure Radiation Oncology Comment on above: Lung lab follow up and ch emotx Cisplatin + Etoposide day 1-5 Lung- lab 9, [place], 9:20, Chemo 9:45 (4hrs) Start: 02-02-2025 End: 02-02-2025 Nursing evaluation of patient and report 02/02/2025 11:45 AM EDT Nurse Visit Radiation Oncology [address] [place] [address] Mae, Nurse Radt [address] [place] [address] pulse monitoring Radiation Oncology Comment on above: pulse monitoring Start: 02-02-2025 End: 02-02-2025 Patient encounter procedure 02/02/2025 11:45 AM EDT Appointment Radiation Oncology [address] [place] [address] Lung Radiation Oncology Comment on above: Lung Start: 02-01-2025 End: 02-01-2025 Nursing evaluation of patient and report 02/01/2025 11:45 AM EDT Nurse Visit Radiation Oncology [address] [place] [address] Mae, Nurse Radt [address] [place] [address] pulse monitoring Radiation Oncology Comment on above: pulse monitoring Start: 02-01-2025 End: 02-01-2025 Patient encounter procedure 02/01/2025 11:45 AM EDT Appointment Radiation Oncology [address] [place] [address] Lung Radiation Oncology Comment on above: Lung Start: 01-31-2025 End: 01-31-2025 Nursing evaluation of patient and report 01/31/2025 11:45 AM EDT Nurse Visit Radiation Oncology [address] [place] [address] Mae, Nurse Radt [address] [place] [address] pulse monitoring Radiation Oncology Comment on above: pulse monitoring Start: 01-31-2025 End: 01-31-2025 Patient encounter procedure Radiation Oncology Comment on above: Lung Location: [facility] Start: 01-30-2025 End: 01-30-2025 Nursing evaluation of patient and report 01/30/2025 11:45 AM EDT Nurse Visit Radiation Oncology [address] [place] [address] Mae, Nurse Radt [address] [place] [address] pulse monitoring Radiation Oncology Comment on above: pulse monitoring Start: 01-30-2025 End: 01-30-2025 Patient encounter procedure 01/30/2025 11:45 AM EDT Appointment Radiation Oncology [address] [place] [address] Lung Radiation Oncology Comment on above: Lung Start: 01-30-2025 End: 01-30-2025 ambulatory 01/30/2025 10:00 AM EDT Visit (SP) Office Hematology/Oncology [address] [place] [address] Madison Gagnon, CHRISTELLET massage-pt in [facility] Hematology/Oncol [facility] Comment on above: [facility] Start: 01-30-2025 End: 01-30-2025 Patient encounter procedure Radiation Oncology Comment on above: lung- pulse ox during tx C34.31 (ICD-10-CM) - Malignant neoplasm of lower lobe of right lung (HCC) Start: 01-29-2025 End: 01-29-2025 Nursing evaluation of patient and report 01/29/2025 11:45 AM EDT Nurse Visit Radiation Oncology [address] [place] [address] Mae, Nurse Radt [address] [place] [address] pulse monitoring Radiation Oncology Comment on above: pulse monitoring Start: 01-29-2025 End: 01-29-2025 Patient encounter procedure 01/29/2025 11:45 AM EDT Appointment Radiation Oncology [address] [place] [address] Lung Radiation Oncology Comment on above: Lung Start: 01-29-2025 End: 01-29-2025 Patient encounter procedure 01/29/2025 8:15 AM EDT Appointment Radiation Oncology [address] [place] [address] lung- pulse ox during tx Radiation Oncology Comment on above: lung- pulse ox during tx Start: 01-26-2025 End: 04-27-2025 Bacteria identified in Blood by Culture [facility] Comment on above: Expected: 01/26/2025, Expires: Start: 01-26-2025 End: 04-27-2025 Bacteria identified in Urine by Culture [facility] Work Phone: Comment on above: Expected: 01/26/2025, Expires: Start: 01-26-2025 End: 04-27-2025 URINALYSIS, DIPSTICK ONLY URINALYSIS, DIPSTICK ONLY Lab Routine Fever in adult Expected: 01/26/2025, Expires: 04/27/2025 [facility] Comment on above: Expected: 01/26/2025, Expires: Start: 01-26-2025 End: 02-24-2026 XR Chest PA and Lateral [facility] Comment on above: Expected: 01/26/2025, Expires: Start: 01-26-2025 End: 01-26-2025 Nursing evaluation of patient and report 01/26/2025 11:45 AM EDT Nurse Visit Radiation Oncology [address] [place] [address] Mae, Nurse Radt [address] [place] [address] pulse monitoring Radiation Oncology Comment on above: pulse monitoring Start: 01-26-2025 End: 01-26-2025 Patient encounter procedure 01/26/2025 11:45 AM EDT Appointment Radiation Oncology [address] [place] [address] Lung Radiation Oncology Comment on above: Lung Start: 01-26-2025 End: 01-26-2025 Patient encounter procedure Radiation Oncology Comment on above: lung- pulse ox during tx Lab and x ray per Ra hernandez and Dr Wilkerson Start: 01-25-2025 End: 01-25-2025 Nursing evaluation of patient and report 01/25/2025 11:45 AM EDT Nurse Visit Radiation Oncology [address] [place] [address] Mae, Nurse Radt [address] [place] [address] pulse monitoring Radiation Oncology Comment on above: pulse monitoring Start: 01-25-2025 End: 01-25-2025 Patient encounter procedure 01/25/2025 11:45 AM EDT Appointment Radiation Oncology [address] [place] [address] Lung Radiation Oncology Comment on above: Lung Start: 01-25-2025 End: 01-25-2025 Patient encounter procedure 01/25/2025 8:15 AM EDT Appointment Radiation Oncology [address] [place] [address] lung- pulse ox during tx Radiation Oncology Comment on above: lung- pulse ox during tx Start: 01-25-2025 [facility] Start: 01-24-2025 End: 01-24-2025 Nursing evaluation of patient and report 01/24/2025 11:45 AM EDT Nurse Visit Radiation Oncology [address] [place] [address] Mae, Nurse Radt [address] [place] [address] pulse monitoring Radiation Oncology Comment on above: pulse monitoring Start: 01-24-2025 End: 01-24-2025 Patient encounter procedure 01/24/2025 11:45 AM EDT Appointment Radiation Oncology [address] [place] [address] Lung Radiation Oncology Comment on above: Lung Start: 01-24-2025 End: 01-24-2025 Patient encounter procedure Radiation Oncology Comment on above: lung- pulse ox during tx Location: [facility] Start: 01-24-2025 [facility] Start: 01-23-2025 End: 01-23-2025 ambulatory 01/23/2025 12:30 PM EDT Visit (SP) Office Hematology/Oncology [address] [place] [address] Madison Gagnon, CHRISTELLET massage-pt in lobby Hematology/Oncol ogy Comment on above: massage-pt in lobby Start: 01-23-2025 End: 01-23-2025 Nursing evaluation of patient and report 01/23/2025 11:45 AM EDT Nurse Visit Radiation Oncology [address] [place] [address] Mae, Nurse Radt [address] [place] [address] pulse monitoring Radiation Oncology Comment on above: pulse monitoring Start: 01-23-2025 End: 01-23-2025 Patient encounter procedure 01/23/2025 11:45 AM EDT Appointment Radiation Oncology [address] [place] [address] Lung Radiation Oncology Comment on above: Lung Start: 01-23-2025 End: 01-23-2025 Patient encounter procedure Radiation Oncology Comment on above: lung- pulse ox during tx C34.31 (ICD-10-CM) - Malignant neoplasm of lower lobe of right lung (HCC) Start: 01-23-2025 [facility] Start: 01-22-2025 End: 01-22-2025 Nursing evaluation of patient and report 01/22/2025 11:45 AM EDT Nurse Visit Radiation Oncology [address] [place] [address] Mae, Nurse Radt [address] [place] [address] pulse monitoring Radiation Oncology Comment on above: pulse monitoring Start: 01-22-2025 End: 01-22-2025 Patient encounter procedure 01/22/2025 11:45 AM EDT Appointment Radiation Oncology [address] [place] [address] Lung Radiation Oncology Comment on above: Lung Start: 01-22-2025 End: 01-22-2025 Patient encounter procedure 01/22/2025 8:15 AM EDT Appointment Radiation Oncology [address] [place] [address] lung- pulse ox during tx Radiation Oncology Comment on above: lung- pulse ox during tx Start: 01-22-2025 [facility] Start: 01-21-2025 [facility] Start: 01-20-2025 [facility] Start: 01-19-2025 End: 01-19-2025 Nursing evaluation of patient and report 01/19/2025 11:45 AM EDT Nurse Visit Radiation Oncology [address] [place] [address] Mae, Nurse Radt [address] [place] [address] pulse monitoring Radiation Oncology Comment on above: pulse monitoring Start: 01-19-2025 End: 01-19-2025 Patient encounter procedure 01/19/2025 11:45 AM EDT Appointment Radiation Oncology [address] [place] [address] Lung Radiation Oncology Comment on above: Lung Start: 01-19-2025 End: 01-19-2025 Patient encounter procedure 01/19/2025 8:15 AM EDT Appointment Radiation Oncology [address] [place] [address] lung- pulse ox during tx Radiation Oncology Comment on above: lung- pulse ox during tx Start: 01-19-2025 [facility] Start: 01-18-2025 End: 01-18-2025 Nursing evaluation of patient and report 01/18/2025 11:45 AM EDT Nurse Visit Radiation Oncology [address] [place] [address] Mae, Nurse Radt [address] [place] [address] pulse monitoring Radiation Oncology Comment on above: pulse monitoring Start: 01-18-2025 End: 01-18-2025 Patient encounter procedure 01/18/2025 11:45 AM EDT Appointment Radiation Oncology [address] [place] [address] Lung Radiation Oncology Comment on above: Lung Start: 01-18-2025 Referral to infectious diseases physician [facility] Start: 01-18-2025 End: 01-18-2025 Patient encounter procedure 01/18/2025 8:15 AM EDT Appointment Radiation Oncology [address] [place] [address] lung- pulse ox during tx Radiation Oncology Comment on above: lung- pulse ox during tx Start: 01-18-2025 End: 01-18-2025 [facility] Start: 01-17-2025 Consultation [facility] Start: 01-17-2025 End: 01-17-2025 Nursing evaluation of patient and report 01/17/2025 11:45 AM EDT Nurse Visit Radiation Oncology [address] [place] [address] Mae, Nurse Radt [address] [place] [address] pulse monitoring Radiation Oncology Comment on above: pulse monitoring Start: 01-17-2025 End: 01-17-2025 Patient encounter procedure 01/17/2025 11:45 AM EDT Appointment Radiation Oncology [address] [place] [address] Lung Radiation Oncology Comment on above: Lung Start: 01-17-2025 Referral to palliative care physician [facility] Start: 01-17-2025 End: 01-17-2025 Patient encounter procedure Radiation Oncology Comment on above: lung- pulse ox during tx Location: [facility] Start: 01-17-2025 [facility] Start: 01-16-2025 End: 01-16-2025 Nursing evaluation of patient and report 01/16/2025 3:45 PM EDT Nurse Visit Radiation Oncology [address] [place] [address] Mae, Nurse Radt [address] [place] [address] pulse monitoring Radiation Oncology Comment on above: pulse monitoring Start: 01-16-2025 End: 01-16-2025 Patient encounter procedure 01/16/2025 3:45 PM EDT Appointment Radiation Oncology [address] [place] [address] Lung- pall med 1st @ 3 Radiation Oncology Comment on above: Lung- pall med 1st @ 3 Start: 01-16-2025 End: 01-16-2025 ambulatory 01/16/2025 2:00 PM EDT Visit (SP) Office Hematology/Oncology [address] [place] [address] Madison Gagnon LMT massage-pt in lobby Hematology/Oncol ogy Comment on above: massage-pt in lobby Start: 01-16-2025 End: 01-16-2025 Patient encounter procedure 01/16/2025 11:45 AM EDT Appointment Radiation Oncology [address] [place] [address] [place] [address] Lung Radiation Oncology Comment on above: Lung Start: 01-16-2025 End: 01-16-2025 Patient encounter procedure Radiation Oncology Comment on above: lung- pulse ox during tx Consult pall med dx lung cancer Lung seeing Carmen rosen 3:00pm please offer PHONE v isit for Nutrtion visit Start: 01-16-2025 [facility] Start: 01-15-2025 Bacteria identified in Blood by Culture Blood Culture [facility] Start: 01-15-2025 End: 04-16-2025 CBC W Auto Differential panel - Blood COMPLETE BLOOD COUNT AND DIFFERENTIAL Lab Routine Malignant neoplasm of lower lobe of right lung (HCC) Expected: 01/15/2025 (Approximate), Expires: 04/16/2025 [facility] Work Phone: Comment on above: Expected: 01/15/2025 (Approximate), Expi res: 04/16/2025 Start: 01-15-2025 End: 04-16-2025 Comprehensive metabolic 2000 panel - Serum or Plasma COMPREHENSIVE METABOLIC PANEL Lab Routine Malignant neoplasm of lower lobe of right lung (HCC) Expected: 01/15/2025 (Approximate), Expires: 04/16/2025 [facility] Comment on above: Expected: 01/15/2025 (Approximate), Expi res: 04/16/2025 Start: 01-15-2025 End: 04-16-2025 Magnesium [Mass/volume] in Serum or Plasma MAGNESIUM Lab Routine Malignant neoplasm of lower lobe of right lung (HCC) Expected: 01/15/2025 (Approximate), Expires: 04/16/2025 [facility] Comment on above: Expected: 01/15/2025 (Approximate), Expi res: 04/16/2025 Start: 01-15-2025 End: 01-15-2025 Hospital admission [facility] Start: 01-15-2025 Physical therapy procedure [facility] Start: 01-15-2025 Referral to occupational therapist [facility] Start: 08-04-2025 Referral to speech and language therapy service [facility] Start: 01-15-2025 End: 01-15-2025 [facility] Start: 01-15-2025 End: 01-15-2025 Nursing evaluation of patient and report 01/15/2025 11:45 AM EDT Nurse Visit Radiation Oncology [address] [place] [address] Mae, Nurse Radt [address] [place] [address] pulse monitoring Radiation Oncology Comment on above: pulse monitoring Start: 01-15-2025 End: 01-15-2025 Patient encounter procedure Radiation Oncology Comment on above: Lung Lung lab 8:00, wilkerson 8:20 chemo 9:00 4hr Start: 01-15-2025 End: 01-15-2025 Follow-up encounter Hematology/Oncol ogy Comment on above: lab follow up and chemotx Cisplatin + Et oposide day 1-5 lab follow up and ch emotx Cisplatin lab follow up and ch emotx Cisplatin + Etoposide phosphate day 1-5 Start: 01-15-2025 End: 01-15-2025 Patient encounter procedure Radiation Oncology Comment on above: lung- pulse ox during tx 1 week lab follow up and chemotx Cisplatin + Etoposide day 1-5 1 week lab follow up and chemotx Cisplatin + Etoposide phosphate day 1-5 Start: 01-12-2025 End: 01-12-2025 Follow-up encounter Hematology/Oncol ogy Comment on above: lab follow up and chemotx Cisplatin + Et oposide day 1-5 lab follow up and ch emotx Cisplatin + Etoposide phosphate day 1-5 Start: 01-12-2025 End: 01-12-2025 Nursing evaluation of patient and report 01/12/2025 11:45 AM EDT Nurse Visit Radiation Oncology [address] [place] [address] Mae, Nurse Radt [address] [place] [address] pulse monitoring Radiation Oncology Comment on above: pulse monitoring Start: 01-12-2025 End: 01-12-2025 Patient encounter procedure Radiation Oncology Comment on above: Lung Lung chemo 12:00 Start: 01-12-2025 End: 01-12-2025 Nursing evaluation of patient and report 01/12/2025 8:30 AM EDT Nurse Visit Radiation Oncology [address] [place] [address] Mae, Nurse Radt [address] [place] [address] pulse monitoring Radiation Oncology Comment on above: pulse monitoring Start: 01-12-2025 End: 01-12-2025 Patient encounter procedure 01/12/2025 8:15 AM EDT Appointment Radiation Oncology [address] [place] [address] lung- pulse ox during tx Radiation Oncology Comment on above: lung- pulse ox during tx Start: 01-11-2025 End: 01-11-2025 Follow-up encounter Hematology/Oncol ogy Comment on above: lab follow up and chemotx Cisplatin + Et oposide day 1-5 lab follow up and ch emotx Cisplatin + Etoposide phosphate day 1-5 Start: 01-11-2025 End: 01-11-2025 Nursing evaluation of patient and report 01/11/2025 11:45 AM EDT Nurse Visit Radiation Oncology [address] [place] [address] Mae, Nurse Radt [address] [place] [address] pulse monitoring Radiation Oncology Comment on above: pulse monitoring Start: 01-11-2025 End: 01-11-2025 Patient encounter procedure Radiation Oncology Comment on above: Lung Lung chemo 12;00pm Start: 01-11-2025 End: 01-11-2025 Nursing evaluation of patient and report 01/11/2025 8:30 AM EDT Nurse Visit Radiation Oncology [address] [place] [address] Mae, Nurse Radt [address] [place] [address] pulse monitoring Radiation Oncology Comment on above: pulse monitoring Start: 01-11-2025 End: 01-11-2025 Patient encounter procedure 01/11/2025 8:15 AM EDT Appointment Radiation Oncology [address] [place] [address] lung- pulse ox during tx Radiation Oncology Comment on above: lung- pulse ox during tx Start: 01-10-2025 End: 01-10-2025 Follow-up encounter 01/10/2025 1:00 PM EDT Infusion Center Hematology/Oncology [address] [place] [address] lab follow up and chemotx Cisplatin + Etoposide day 1-5 Hematology/Oncol ogy Comment on above: lab follow up and chemotx Cisplatin + Et oposide day 1-5 Start: 01-10-2025 End: 01-10-2025 Nursing evaluation of patient and report 01/10/2025 11:45 AM EDT Nurse Visit Radiation Oncology [address] [place] [address] Mae, Nurse Radt [address] [place] [address] pulse monitoring Radiation Oncology Comment on above: pulse monitoring Start: 01-10-2025 End: 01-10-2025 Patient encounter procedure Radiation Oncology Comment on above: Lung Lung chemo 1:00pm Start: 01-10-2025 End: 01-10-2025 Nursing evaluation of patient and report 01/10/2025 8:30 AM EDT Nurse Visit Radiation Oncology [address] [place] [address] Mae, Nurse Radt [address] [place] [address] pulse monitoring Radiation Oncology Comment on above: pulse monitoring Start: 01-10-2025 End: 01-10-2025 Patient encounter procedure Radiation Oncology Comment on above: lung- pulse ox during tx Location: [facility] Start: 01-09-2025 End: 01-09-2025 Nursing evaluation of patient and report 01/09/2025 3:15 PM EDT Nurse Visit Radiation Oncology [address] [place] [address] Mae, Nurse Radt [address] [place] [address] pulse monitoring Radiation Oncology Comment on above: pulse monitoring Start: 01-09-2025 End: 01-09-2025 ambulatory 01/09/2025 2:30 PM EDT Visit (SP) Office Hematology/Oncology [address] [place] [address] Madison Gagnon, CHRISTELLET massage-pt in [facility] Hematology/Oncol ogy Comment on above: massage-pt in [facility] Start: 01-09-2025 End: 01-09-2025 Nursing evaluation of patient and report 01/09/2025 11:45 AM EDT Nurse Visit Radiation Oncology [address] [place] [address] Mae, Nurse Radt [address] [place] [address] pulse monitoring Radiation Oncology Comment on above: pulse monitoring Start: 01-09-2025 End: 01-09-2025 Follow-up encounter Hematology/Oncol ogy Comment on above: 1 week follow up with lab chemotx Taxol carbo lab follow up and ch emotx Cisplatin + Etoposide day 1-5 Start: 01-09-2025 End: 01-09-2025 Patient encounter procedure Radiation Oncology Comment on above: lung- pulse ox during tx, massage at 215 Lung 1 week follow up wit h lab chemotx Taxol carbo Lung- chemo starting at 9 Lung- chemo 12:00 ma ssage 2:30 Start: 01-08-2025 End: 01-08-2025 Patient encounter procedure Radiation Oncology Comment on above: NEW START LUNG NEW START LUNG- chem o at 10:30 (5 hrs) Start: 01-08-2025 End: 01-08-2025 Nursing evaluation of patient and report 01/08/2025 11:45 AM EDT Nurse Visit Radiation Oncology [address] [place] [address] Mae, Nurse Radt [address] [place] [address] pulse monitoring Radiation Oncology Comment on above: pulse monitoring Start: 01-08-2025 End: 01-08-2025 Patient encounter procedure Radiation Oncology Comment on above: Lung NEW START LUNG Start: 01-08-2025 End: 01-08-2025 Follow-up encounter Hematology/Oncol ogy Comment on above: lab follow up and chemotx Cisplatin + Et oposide day 1-5 lab follow up and ch emotx Cisplatin + Etoposide day 1-5 + MAGNESIUM Start: 01-08-2025 End: 01-08-2025 Patient encounter procedure 01/08/2025 9:45 AM EDT Office Visit [facility] [address] [place] [address] lab follow up and chemotx Cisplatin + Etoposide day 1-5 [facility] Comment on above: lab follow up and chemotx Cisplatin + Et oposide day 1-5 Start: 01-08-2025 End: 01-08-2025 Nursing evaluation of patient and report Radiation Oncology Comment on above: pulse monitoring cisplatin + etoposid e Start: 01-08-2025 End: 01-08-2025 Patient encounter procedure 01/08/2025 8:15 AM EDT Appointment Radiation Oncology [address] [place] [address] lung- pulse ox during tx Radiation Oncology Comment on above: lung- pulse ox during tx Start: 01-06-2025 [facility] Start: 01-05-2025 Aerobic microbial culture Aerobic Culture [facility] Start: 01-05-2025 Microbial culture of sputum [facility] Start: 01-05-2025 End: 01-05-2025 Nursing evaluation of patient and report 01/05/2025 11:45 AM EDT Nurse Visit Radiation Oncology [address] [place] [address] Mae, Nurse Radt [address] [place] [address] pulse monitoring Radiation Oncology Comment on above: pulse monitoring Start: 01-05-2025 End: 01-05-2025 Patient encounter procedure 01/05/2025 11:45 AM EDT Appointment Radiation Oncology [address] [place] [address] Lung Radiation Oncology Comment on above: Lung Start: 01-05-2025 End: 01-05-2025 Nursing evaluation of patient and report 01/05/2025 8:30 AM EDT Nurse Visit Radiation Oncology [address] [place] [address] Mae, Nurse Radt [address] [place] [address] pulse monitoring Radiation Oncology Comment on above: pulse monitoring Start: 01-05-2025 End: 01-05-2025 Patient encounter procedure 01/05/2025 8:15 AM EDT Appointment Radiation Oncology [address] [place] [address] lung- pulse ox during tx Radiation Oncology Comment on above: lung- pulse ox during tx Start: 01-04-2025 End: 01-04-2025 Nursing evaluation of patient and report 01/04/2025 11:45 AM EDT Nurse Visit Radiation Oncology [address] [place] [address] Mae, Nurse Radt [address] [place] [address] pulse monitoring Radiation Oncology Comment on above: pulse monitoring Start: 01-04-2025 End: 01-04-2025 Patient encounter procedure 01/04/2025 11:45 AM EDT Appointment Radiation Oncology [address] [place] [address] Lung Radiation Oncology Comment on above: Lung Start: 01-04-2025 End: 01-04-2025 Nursing evaluation of patient and report 01/04/2025 8:30 AM EDT Nurse Visit Radiation Oncology [address] [place] [address] Mae, Nurse Radt [address] [place] [address] pulse monitoring Radiation Oncology Comment on above: pulse monitoring Start: 01-04-2025 End: 01-04-2025 Patient encounter procedure 01/04/2025 8:15 AM EDT Appointment Radiation Oncology [address] [place] [address] lung- pulse ox during tx Radiation Oncology Comment on above: lung- pulse ox during tx Start: 01-03-2025 Administration of prophylactic treatment [facility] Start: 01-03-2025 End: 01-03-2025 Nursing evaluation of patient and report 01/03/2025 11:45 AM EDT Nurse Visit Radiation Oncology [address] [place] [address] Mae, Nurse Radt [address] [place] [address] pulse monitoring Radiation Oncology Comment on above: pulse monitoring Start: 01-03-2025 End: 01-03-2025 Patient encounter procedure 01/03/2025 11:45 AM EDT Appointment Radiation Oncology [address] [place] [address] Lung Radiation Oncology Comment on above: Lung Start: 01-03-2025 End: 01-03-2025 Nursing evaluation of patient and report 01/03/2025 8:30 AM EDT Nurse Visit Radiation Oncology [address] [place] [address] Mae, Nurse Radt [address] [place] [address] pulse monitoring Radiation Oncology Comment on above: pulse monitoring Start: 01-03-2025 End: 01-03-2025 Patient encounter procedure 01/03/2025 8:15 AM EDT Appointment Radiation Oncology [address] [place] [address] lung- pulse ox during tx Radiation Oncology Comment on above: lung- pulse ox during tx Start: 01-03-2025 Plain chest X-ray XR chest 2V* [facility] Start: 01-03-2025 [facility] Start: 01-02-2025 Hospital admission [facility] Start: 01-02-2025 End: 01-02-2025 [facility] [facility] Start: 01-02-2025 Physical therapy procedure [facility] Start: 01-02-2025 Referral to occupational therapist [facility] Start: 01-02-2025 Microbial culture of sputum [facility] Start: 01-02-2025 End: 01-02-2025 Nursing evaluation of patient and report 01/02/2025 3:15 PM EDT Nurse Visit Radiation Oncology [address] [place] [address] Mae, Nurse Radt [address] [place] [address] pulse monitoring Radiation Oncology Comment on above: pulse monitoring Start: 01-02-2025 End: 01-02-2025 ambulatory 01/02/2025 2:30 PM EDT Visit (SP) Office Hematology/Oncology [address] [place] [address] Madison Gagnon, CHRISTELLET massage-pt in lobby Hematology/Oncol ogy Comment on above: massage-pt in lobby Start: 01-02-2025 Bacteria identified in Blood by Culture Blood Culture [facility] Start: 01-02-2025 End: 04-03-2025 CBC W Auto Differential panel - Blood COMPLETE BLOOD COUNT AND DIFFERENTIAL Lab Routine Malignant neoplasm of lower lobe of right lung (HCC) Expected: 01/02/2025 (Approximate), Expires: 04/03/2025 [facility] Work Phone: Comment on above: Expected: 01/02/2025 (Approximate), Expi res: 04/03/2025 Start: 01-02-2025 End: 04-03-2025 Comprehensive metabolic 2000 panel - Serum or Plasma COMPREHENSIVE METABOLIC PANEL Lab Routine Malignant neoplasm of lower lobe of right lung (HCC) Expected: 01/02/2025 (Approximate), Expires: 04/03/2025 [facility] Comment on above: Expected: 01/02/2025 (Approximate), Expi res: 04/03/2025 Start: 01-02-2025 End: 04-03-2025 [facility] Lab Routine Malignant neoplasm of lower lobe of right lung (HCC) Expected: 01/02/2025 (Approximate), Expires: 04/03/2025 [facility] Comment on above: Expected: 01/02/2025 (Approximate), Expi res: 04/03/2025 Start: 01-02-2025 End: 04-03-2025 Magnesium [Mass/volume] in Serum or Plasma MAGNESIUM Lab Routine Malignant neoplasm of lower lobe of right lung (HCC) Expected: 01/02/2025 (Approximate), Expires: 04/03/2025 [facility] Comment on above: Expected: 01/02/2025 (Approximate), Expi res: 04/03/2025 Start: 01-02-2025 End: 01-02-2025 Follow-up encounter Hematology/Oncol ogy Comment on above: 1 week follow up with lab chemotx Taxol carbo Start: 01-02-2025 End: 01-02-2025 Patient encounter procedure Radiation Oncology Comment on above: lung- pulse ox during tx, massage at 230 1 week follow up wit h lab chemotx Taxol carbo NEW START LUNG liliam p atient NEW START LUNG liliam p t Start: 01-01-2025 End: 01-01-2025 Nursing evaluation of patient and report 01/01/2025 8:30 AM EDT Nurse Visit Radiation Oncology [address] [place] [address] Mae, Nurse Radt [address] [place] [address] pulse monitoring Radiation Oncology Comment on above: pulse monitoring Start: 01-01-2025 End: 01-01-2025 Patient encounter procedure 01/01/2025 8:15 AM EDT Appointment Radiation Oncology [address] [place] [address] lung- pulse ox during tx Radiation Oncology Comment on above: lung- pulse ox during tx Start: 12-29-2024 End: 12-29-2024 Nursing evaluation of patient and report 12/29/2024 8:30 AM EDT Nurse Visit Radiation Oncology [address] [place] [address] Mae, Nurse Radt [address] [place] [address] pulse monitoring Radiation Oncology Comment on above: pulse monitoring Start: 12-29-2024 End: 12-29-2024 Patient encounter procedure 12/29/2024 8:15 AM EDT Appointment Radiation Oncology [address] [place] [address] lung- pulse ox during tx Radiation Oncology Comment on above: lung- pulse ox during tx Start: 12-28-2024 End: 12-28-2024 Nursing evaluation of patient and report 12/28/2024 8:30 AM EDT Nurse Visit Radiation Oncology [address] [place] [address] Celeste, Nurse Radt [address] [place] [address] pulse monitoring Radiation Oncology Comment on above: pulse monitoring Start: 12-28-2024 End: 12-28-2024 Patient encounter procedure 12/28/2024 8:15 AM EDT Appointment Radiation Oncology [address] [place] [address] lung- pulse ox during tx Radiation Oncology Comment on above: lung- pulse ox during tx Start: 12-27-2024 End: 12-27-2024 Nursing evaluation of patient and report 12/27/2024 8:30 AM EDT Nurse Visit Radiation Oncology [address] [place] [address] Mae, Nurse Radt [address] [place] [address] pulse monitoring Radiation Oncology Comment on above: pulse monitoring Start: 12-27-2024 End: 12-27-2024 Patient encounter procedure 12/27/2024 8:15 AM EDT Appointment Radiation Oncology [address] [place] [address] lung- pulse ox during tx Radiation Oncology Comment on above: lung- pulse ox during tx Start: 12-26-2024 End: 12-26-2024 Nursing evaluation of patient and report 12/26/2024 3:15 PM EDT Nurse Visit Radiation Oncology [address] [place] [address] Mae, Nurse Radt [address] [place] [address] Pulse Monitoring Radiation Oncology Comment on above: Pulse Monitoring Start: 12-26-2024 End: 12-26-2024 ambulatory Hematology/Oncol ogy Comment on above: massage-pt in lobby Recent discharge fro m [facility] Start: 12-26-2024 End: 12-26-2024 Patient encounter procedure Radiation Oncology Comment on above: lung- pulse ox during tx, massage at 230 labs Start: 12-25-2024 End: 12-25-2024 Nursing evaluation of patient and report 12/25/2024 8:30 AM EDT Nurse Visit Radiation Oncology [address] [place] [address] Celeste, Nurse Radt [address] [place] [address] Pulse Monitoring Radiation Oncology Comment on above: Pulse Monitoring Start: 12-25-2024 End: 12-25-2024 Patient encounter procedure 12/25/2024 8:15 AM EDT Appointment Radiation Oncology [address] [place] [address] lung- pulse ox during tx Radiation Oncology Comment on above: lung- pulse ox during tx Start: 12-22-2024 End: 12-22-2024 Nursing evaluation of patient and report 12/22/2024 1:30 PM EDT Nurse Visit Radiation Oncology [address] [place] [address] Mae, Nurse Radt [address] [place] [address] Pulse Monitoring Radiation Oncology Comment on above: Pulse Monitoring Start: 12-22-2024 End: 12-22-2024 Patient encounter procedure 12/22/2024 1:00 PM EDT Appointment Radiation Oncology [address] [place] [address] lung- pulse ox during tx Radiation Oncology Comment on above: lung- pulse ox during tx Start: 12-21-2024 End: 12-21-2024 Patient encounter procedure 12/21/2024 8:15 AM EDT Appointment Radiation Oncology [address] [place] [address] lung- pulse ox during tx inpatient still? Radiation Oncology Comment on above: lung- pulse ox during tx inpatient still ? Start: 12-18-2024 End: 12-18-2024 Patient encounter procedure Radiation Oncology Comment on above: NEW START LUNG- LILIAM PT NEW START LUNG - PT WOULD LIKE MORNINGS - LILIAM PT Start: 12-18-2024 End: 12-18-2024 Follow-up encounter Hematology/Oncol ogy Comment on above: lab follow up and chemotx Carbo/Taxol Start: 12-18-2024 End: 12-18-2024 Patient encounter procedure [facility] Comment on above: lab follow up and chemotx Carbo/Taxol NEW START LUNG- LILIAM PT NEW START LUNG - MOR NINGS - LILIAM PT, med onc at 1 Start: 12-08-2024 End: 12-08-2024 Patient encounter procedure 12/08/2024 10:30 AM EDT Office Visit Radiation Oncology [address] [place] [address] Ezra Lizama MD [address] [place] [address] SIM Lung, IV contrast,esoph contrast, 4DCT, consent signed Radiation Oncology Comment on above: SIM Lung, IV contrast,esoph contrast, 4D CT, consent signed Start: 12-08-2024 End: 12-08-2024 Nursing evaluation of patient and report 12/08/2024 10:00 AM EDT Nurse Visit Radiation Oncology [address] [place] [address] Mae, Nurse Radt [address] [place] [address] IV start Radiation Oncology Comment on above: [...] lung (HCC) Expected: 12/04/2024 (Approximate), Expires: 12/27/2025 [facility] Work Phone: Comment on above: Expected: 12/04/2024 (Approximate), Expi res: 12/27/2025 Start: 12-01-2024 End: 03-02-2025 CBC W Auto Differential panel - Blood COMPLETE BLOOD COUNT AND DIFFERENTIAL Lab Routine Malignant neoplasm of lower lobe of right lung (HCC) Expected: 12/01/2024 (Approximate), Expires: 03/02/2025 [facility] Work Phone: Comment on above: Expected: 12/01/2024 (Approximate), Expi res: 03/02/2025 Start: 12-01-2024 End: 03-02-2025 Cobalamin (Vitamin B12) [Mass/volume] in Serum or Plasma VITAMIN B12 Lab Routine Malignant neoplasm of lower lobe of right lung (HCC) Expected: 12/01/2024 (Approximate), Expires: 03/02/2025 [facility] Comment on above: Expected: 12/01/2024 (Approximate), Expi res: 03/02/2025 Start: 12-01-2024 End: 03-02-2025 Comprehensive metabolic 2000 panel - Serum or Plasma COMPREHENSIVE METABOLIC PANEL Lab Routine Malignant neoplasm of lower lobe of right lung (HCC) Expected: 12/01/2024 (Approximate), Expires: 03/02/2025 [facility] Comment on above: Expected: 12/01/2024 (Approximate), Expi res: 03/02/2025 Start: 12-01-2024 End: 03-02-2025 Ferritin [Mass/volume] in Serum or Plasma FERRITIN Lab Routine Malignant neoplasm of lower lobe of right lung (HCC) Expected: 12/01/2024 (Approximate), Expires: 03/02/2025 [facility] Comment on above: Expected: 12/01/2024 (Approximate), Expi res: 03/02/2025 Start: 12-01-2024 End: 03-02-2025 Folate [Mass/volume] in Serum or Plasma FOLATE, SERUM Lab Routine Malignant neoplasm of lower lobe of right lung (HCC) Expected: 12/01/2024 (Approximate), Expires: 03/02/2025 [facility] Comment on above: Expected: 12/01/2024 (Approximate), Expi res: 03/02/2025 Start: 12-01-2024 End: 03-02-2025 [facility] Lab Routine Malignant neoplasm of lower lobe of right lung (HCC) Expected: 12/01/2024, Expires: 03/02/2025 [facility] Comment on above: Expected: 12/01/2024, Expires: Start: 12-01-2024 End: 03-02-2025 Iron and Iron binding capacity panel - Serum or Plasma IRON AND TIBC Lab Routine Malignant neoplasm of lower lobe of right lung (HCC) Expected: 12/01/2024 (Approximate), Expires: 03/02/2025 [facility] Comment on above: Expected: 12/01/2024 (Approximate), Expi res: 03/02/2025 Start: 11-30-2024 End: 11-30-2024 Follow-up encounter 11/30/2024 3:30 PM EDT [facility] Nutrition Therapy [address] [place] [address] Bee Pabon, RD [address] [place] [address] Follow up lung/ severe weight loss Nutrition Therapy Comment on above: Follow up lung/ severe weight loss Start: 11-30-2024 End: 11-30-2024 Patient encounter procedure 11/30/2024 9:00 AM EDT Office Visit Radiation Oncology [address] [place] [address] Ezra Lizama MD [address] [place] [address] [place] [address] SIM Lung, IV contrast,esoph contrast, 4DCT, consent signed Radiation Oncology Comment on above: SIM Lung, IV contrast,esoph contrast, 4D CT, consent signed Start: 11-30-2024 End: 11-30-2024 Nursing evaluation of patient and report 11/30/2024 8:45 AM EDT Nurse Visit Radiation Oncology [address] [place] [address] Mae, Nurse Radt [address] [place] [address] IV Nurse visit Radiation Oncology Comment on above: IV Nurse visit Start: 11-27-2024 End: 11-27-2024 Nursing evaluation of patient and report 11/27/2024 9:00 AM EDT Nurse Visit Hematology/Oncology [address] [place] [address] Blanquita Hargrove, RN [address] [place] [address] weekly carbo taxol Hematology/Oncol ogy Comment on above: weekly carbo taxol Start: 11-23-2024 End: 11-23-2024 Patient encounter procedure 11/23/2024 3:00 PM EDT Office Visit Radiation Oncology [address] [place] [address] Ezra Lizama MD [address] [place] [address] SIM Lung, IV contrast,esoph contrast, 4DCT, consent signed Radiation Oncology Comment on above: SIM Lung, IV contrast,esoph contrast, 4D CT, consent signed Start: 11-23-2024 End: 11-23-2024 Nursing evaluation of patient and report 11/23/2024 2:45 PM EDT Nurse Visit Radiation Oncology [address] [place] [address] Mae, Nurse Radt [address] [place] [address] IV Nurse visit Radiation Oncology Comment on above: IV Nurse visit Start: 11-22-2024 End: 11-22-2025 Device Interrogation Device Interrogation Cardiac Services Routine Pacemaker- [place] Expected: 11/22/2024, Expires: 11/22/2025 [facility] Work Phone: Comment on above: Expected: 11/22/2024, Expires: Start: 11-22-2024 End: 11-22-2024 Patient encounter procedure 11/22/2024 1:00 PM EDT Office Visit [facility] [address] [place] [id number] Shola Milan, 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 [employer] [address] [place] [address] [facility] Start: 11-20-2024 End: 11-20-2024 Admission to same day surgery center 11/20/2024 11:30 AM EDT - 11/20/2024 1:30 PM EDT Surgery Admitting [address] [address] Alexandre Robertson MD [address] [place] [address] BRONCHOSCOPY FLEXIBLE ADULT Admitting Comment on above: BRONCHOSCOPY FLEXIBLE ADULT Start: 11-20-2024 Subsequent hospital visit by physician 11/20/2024 11:30 AM EDT Hospital Encounter Admitting [address] [address] Alexandre Robertson MD [address] [place] [address] 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] Admitting Comment on above: 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] Start: 11-20-2024 End: 11-20-2024 [facility] incl fluor gdnce dx w/cell washg spx PULM LAB H23 Start: 11-17-2024 End: 11-17-2024 Follow-up encounter 11/17/2024 2:00 PM EDT Visit (SP) Office Hematology/Oncology [address] [place] [address] Rasheed Perez MD [address] [place] [address] 2 week follow up Hematology/Oncol ogy Comment on above: 2 week follow up Start: 11-17-2024 End: 11-17-2024 Patient encounter procedure 11/17/2024 1:00 PM EDT Office Visit Radiation Oncology [address] [place] [address] Ezra Lizama MD [address] [place] [address] Consult dx Lung cancer Radiation Oncology Comment on above: Consult dx Lung cancer Start: 11-15-2024 End: 11-15-2024 ambulatory 11/15/2024 12:10 PM EDT Procedure Cardiology [address] [address] PreOp Testing Cardiology Comment on above: PreOp Testing Start: 11-15-2024 End: 11-15-2024 Patient encounter procedure 11/15/2024 11:00 AM EDT Office Visit Pulmonary Medicine [address] [address] Alexandre Robertson MD [address] [place] [address] New Consultation Pulmonary Medicine Comment on above: New Consultation Start: 11-10-2024 End: 02-09-2025 CBC W Auto Differential panel - Blood COMPLETE BLOOD COUNT AND DIFFERENTIAL Lab Routine Malignant neoplasm of lower lobe of right lung (HCC) Expected: 11/10/2024 (Approximate), Expires: 02/09/2025 [facility] Comment on above: Expected: 11/10/2024 (Approximate), Expi res: 02/09/2025 Start: 11-10-2024 End: 02-09-2025 Cobalamin (Vitamin B12) [Mass/volume] in Serum or Plasma VITAMIN B12 Lab Routine Malignant neoplasm of lower lobe of right lung (HCC) Expected: 11/10/2024 (Approximate), Expires: 02/09/2025 [facility] Comment on above: Expected: 11/10/2024 (Approximate), Expi res: 02/09/2025 Start: 11-10-2024 End: 02-09-2025 Comprehensive metabolic 2000 panel - Serum or Plasma COMPREHENSIVE METABOLIC PANEL Lab Routine Malignant neoplasm of lower lobe of right lung (HCC) Expected: 11/10/2024 (Approximate), Expires: 02/09/2025 [facility] Comment on above: Expected: 11/10/2024 (Approximate), Expi res: 02/09/2025 Start: 11-10-2024 End: 02-09-2025 Ferritin [Mass/volume] in Serum or Plasma FERRITIN Lab Routine Malignant neoplasm of lower lobe of right lung (HCC) Expected: 11/10/2024 (Approximate), Expires: 02/09/2025 [facility] Comment on above: Expected: 11/10/2024 (Approximate), Expi res: 02/09/2025 Start: 11-10-2024 End: 02-09-2025 Folate [Mass/volume] in Serum or Plasma FOLATE, SERUM Lab Routine Malignant neoplasm of lower lobe of right lung (HCC) Expected: 11/10/2024 (Approximate), Expires: 02/09/2025 [facility] Comment on above: Expected: 11/10/2024 (Approximate), Expi res: 02/09/2025 Start: 11-10-2024 End: 02-09-2025 Iron and Iron binding capacity panel - Serum or Plasma IRON AND TIBC Lab Routine Malignant neoplasm of lower lobe of right lung (HCC) Expected: 11/10/2024 (Approximate), Expires: 02/09/2025 [facility] Comment on above: Expected: 11/10/2024 (Approximate), Expi res: 02/09/2025 Start: 11-10-2024 End: 11-26-2025 MR Brain WO and W contrast IV MRI BRAIN WO/W IVCON Radiology Routine Malignant neoplasm of lower lobe of right lung (HCC) Expected: 11/10/2024, Expires: 11/26/2025 [facility] Work Phone: Comment on above: Expected: 11/10/2024, Expires: Start: 11-10-2024 End: 11-10-2024 Patient encounter procedure 11/10/2024 9:00 AM EDT Office Visit Radiation Oncology [address] [place] [address] Ezra Lizama MD [address] [place] [place] [address] [place] [address] Consult dx Lung cancer Radiation Oncology Comment on above: Consult dx Lung cancer Start: 11-10-2024 End: 11-10-2024 Follow-up encounter 11/10/2024 8:30 AM EDT Visit (SP) Office Hematology/Oncology [address] [place] [address] Rasheed Perez MD [address] [place] [address] 2 week follow up Hematology/Oncol ogy Comment on above: 2 week follow up Start: 11-08-2024 End: 11-08-2024 Patient encounter procedure 11/08/2024 2:30 PM EDT Office Visit [facility] [address] [place] [address] Maritza Best MD [address] [place] [address] [facility] Start: 10-30-2024 End: 10-30-2024 Nutrition therapy 10/30/2024 2:30 PM EDT Education Nutrition Therapy [address] [place] [id number] Bee Pabon, RD [address] [place] [address] Nutri phone call ref by Dr Perez Nutrition Therapy Comment on above: Nutri phone call ref by Dr Perez Start: 10-27-2024 End: 10-27-2024 ambulatory 10/27/2024 9:00 AM EDT Visit (SP) Office Hematology/Oncology [address] [place] [place] [address] [place] [address] Rasheed Perez MD [address] [place] [place] [address] [place] [address] 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 Hematology/Oncol ogy Comment on above: 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 Start: 09-29-2024 COVID-19 Vaccine (4 - Mixed Product risk season) COVID-19 Vaccine (4 - Mixed Product risk season) [facility] Start: 08-31-2024 Plain chest X-ray XR chest 2V* [facility] Start: 02-13-2024 Covid-19 Vaccine ( season) Covid-19 Vaccine ( season) [facility] Start: 10-01-2023 Diabetes Screening Diabetes Screening [facility] Start: 2021 RSV Vaccine (1 - Risk 60-74 years 1-dose series) RSV Vaccine (1 - Risk 60-74 years 1-dose series) [facility] Start: 11-03-2011 Administration of varicella zoster vaccine Zoster (Shingles) Vaccine (1 of 2) [facility] Start: 11-03-2011 Pneumococcal Vaccine: 50+ (1 of 1 - PCV) Pneumococcal Vaccine: 50+ (1 of 1 - PCV) [facility] Start: 11-03-2011 Shingrix Vaccine (1 of 2) Shingrix Vaccine (1 of 2) [facility] Start: 2006 Prostate specific antigen measurement Prostate Cancer Screening Discussion [facility] Start: 2006 Screening for malignant neoplasm of colon [facility] Start: 1980 Administration of varicella zoster vaccine Zoster (Shingles) Vaccine (1 of 2) [facility] Start: 1980 DTaP,Tdap and Td Vaccines (1 - Tdap) DTaP,Tdap and Td Vaccines (1 - Tdap) [facility] Start: 1980 Pneumococcal Vaccine: 50+ (1 of 2 - PCV) Pneumococcal Vaccine: 50+ (1 of 2 - PCV) [facility] Start: 1980 Shingrix Vaccine (1 of 2) Shingrix Vaccine (1 of 2) [facility] Start: 1980 Urine microalbumin profile DTaP,Tdap,Td Vaccine (1 - Tdap) [facility] Start: 11-03-1979 Adult BMI Follow Up Plan Adult BMI Follow Up Plan [facility] Start: 11-03-1979 Adult BMI Screening Adult BMI Screening [facility] Start: 11-03-1979 Anxiety Screening Anxiety Screening [facility] Start: 11-03-1979 Depression Screening Depression Screening [facility] Start: 11-03-1979 Hepatitis C screening Hepatitis C Screening [facility] Start: 11-03-1979 HIV screening HIV Screening [facility] Start: 1973 Depression Screening Depression Screening [facility] Start: 1973 Tobacco Screening Tobacco Screening [facility] BLOOD CULTURE 1 BLOOD CULTURE 1 Lab Routine 10/06/2024 6:12 PM EDT [facility] Work Phone: BLOOD CULTURE 2 BLOOD CULTURE 2 Lab Routine [facility]/06[facility] CARDIAC IMPLANTABLE DEVICE CHECK PACEART Routine 11/20/2024 10:41 AM EDT [facility] Work Phone: CBC W Auto Different ial panel - Blood COMPLETE BLOOD COUNT AND DIFFERENTIAL Lab Routine Malignant neoplasm of lower lobe of right lung (HCC) 01/24/2025 1:29 PM EDT [facility] Work Phone: CT Guidance for radi ation treatment of Unspecified body region CT SIM PLANNING RADIATION ONCOLOGY Radiology Routine Malignant neoplasm of lower lobe of right lung (HCC) Ordered: 12/04/2024 [facility] Work Phone: Comment on above: Ordered: 12/04/2024 Patient Education [facility] Work Phone: Patient referral [facility] Work Phone: End: 12-23-2025 SPIROMETRY BASELINE ONLY SPIROMETRY BASELINE ONLY PFT Routine Malignant neoplasm of lower lobe of right lung (HCC) 1 Occurrences starting 11/23/2024 until 12/23/2025 [facility] Work Phone: Comment on above: 1 Occurrences starting 11/23/2024 until 12/23/2025 XR Chest 2 Views [facility] Immunizations Immunization Date Immunization Notes Care Provider Fa [facility] 03-31-2024 Seasonal, trivalent, recombinant, injectable influenza vaccine, preservative free 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 [employer] Work Phone: [facility] [employer] [facility] 03-31-2024 influenza virus vaccine, unspecified formulation Maritza Best MD Work Phone: [facility] 04-21-2023 influenza virus vaccine, unspecified formulation VICTORIA FLORES [facility] 04-21-2023 Seasonal, quadrivalent, recombinant, injectable influenza vaccine, preservative free 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 [employer] Work Phone: [facility] [employer] [facility] 03-16-2022 influenza virus vaccine, unspecified formulation VICTORIA FLORES [facility] 03-16-2022 Seasonal, quadrivalent, recombinant, injectable influenza vaccine, preservative free 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 [employer] Work Phone: [facility] [employer] 04-07-2021 influenza virus vaccine, unspecified formulation VICTORIA FLORES [facility] 04-07-2021 influenza, seasonal, injectable Shola Milan 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 [employer] Work Phone: [employer] 09-25-2020 SARS-CoV-2 (COVID-19 ) mRNA-1273 vaccine VICTORIA FLORES [facility] Comment on above: Result Comment: 2022: 51 08-28-2020 SARS-CoV-2 (COVID-19 ) mRNA-1273 vaccine VICTORIA FLORES [facility] 06-14-2020 SARS-CoV-2 (COVID-19 ) mRNA-1273 vaccine VICTORIAGRACIE FLORES [facility] [facility] Comment on above: Result Comment: pt alondra mac he is fully vaccinated 04-02-2020 influenza virus vaccine, unspecified formulation VICTORIA FLORES [facility] 04-02-2020 Influenza, injectabl e, Madin Fullerton Canine Kidney, quadrivalent with preservative Shola Milan 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 [employer] Work Phone: Coin 03-14-2017 influenza virus vaccine, unspecified formulation VICTORIA FLORES [facility] Payers Date Payer Category Payer Private Health Insurance [id number] 2020 Blue Cross Blue Shield 1.2.8 [id number] 2013 Blue Cross Blue Shie ashley Managed Care - Other [facility] [id number] 1961 Unknown [id number] 2.16.840.1.374549.3.579. 2.593 1961 Unknown [id number] 2.16.840.1.477593.3.579. 2.593 1961 Unknown [id number] 2.16.840.1.221725.3.579. 2.593 1961 Unknown [id number] 2.16.840.1.280137.3.579. 2.1286 1961 Unknown [id number] 2.16.840.1.080568.3.579. 2.1286 1961 Unknown [id number] 2.16.840.1.684053.3.579. 2.1286 1961 Unknown [id number] 2.16.840.1.722669.3.579. 2.727 1961 Unknown [id number] 2.16.840.1.340667.3.579. 2.727 1961 Unknown [id number] 2.16.840.1.312565.3.579. 2.727 1961 Unknown [id number] 2.16.840.1.301089.3.579. 2.727 1961 Unknown [id number] 2.16.840.1.465948.3.579. 2.727 1961 Unknown [id number] 2.16.840.1.001371.3.579. 2.727 22-1961 Unknown [id number] 2.16.840.1.312913.3.579. 2. 1961 Unknown [id number] 2.16.840.1.332853.3.579. 2. 1961 Unknown [id number] 2.16.840.1.080661.3.579. 2. 1961 Unknown [id number] 2.16.840.1.597472.3.579. 2. 1961 Unknown [id number] 2.16.840.1.543685.3.579. 2. 1961 Unknown [id number] 2.16.840.1.245334.3.579. 2.1285 1961 Unknown [id number] 2.16.840.1.585334.3.579. 2.1285 1961 Unknown [id number] 2.16.840.1.730945.3.579. 2.1285 1961 Unknown [id number] 2.16.840.1.636363.3.579. 2.1285 1961 Unknown [id number] 2.16.840.1.055718.3.579. 2.1285 1961 Unknown [id number] 2.16.840.1.103849.3.579. 2.1285 1961 Unknown [id number] 2.16.840.1.229658.3.579. 2.1285 1961 Unknown [id number] 2.16.840.1.279570.3.579. 2.1285 1961 Unknown [id number] 2.16.840.1.153683.3.579. 2.1285 1961 Unknown [id number] 2.16.840.1.518855.3.579. 2.1285 1961 Unknown [id number] 2.16.840.1.609152.3.579. 2.1286 1961 Unknown [id number] 2.16.840.1.280880.3.579. 2.1286 1959 Unknown [id number] Social History Date Type Detail Facility Start: 06-29-2023 End: 10-25-2024 Tobacco smoking status Ex-smoker (finding) [facility] Start: 05-15-2012 Tobacco smoking status Never [facility] Start: 10-25-2024 End: 11-15-2024 Sex Assigned At Male [facility] Start: 01-17-2015 End: 08-31-2024 Sex Male (finding) [facility] Start: 1960 Sex Assigned At Male [facility] consumption unknown [facility] Start: 1960 Sex assigned at Not on file N [facility] Start: 06-14-2016 End: 01-04-2017 History of tobacco use Current smoker [facility] Start: 06-14-2016 End: 01-04-2017 History of tobacco use Cigarette Smoker [facility] History of tobacco use Passive smoker [facility] Start: 10-25-2024 End: 11-08-2024 Tobacco use and exposure Smokeless tobacco non-user [facility] Start: 10-25-2024 End: 02-14-2025 Alcoholic beverage intake Ex-drinker (finding) [facility] Start: 10-25-2024 End: 11-15-2024 History of Social function [facility] Start: 03-31-2017 End: 11-08-2024 Alcoholic beverage intake [facility] Has the [employer], or Maraquia threatened to shut off services in your home in past 12Mo [facility] How often to you hav e a drink containing alcohol? Monthly or less [facility] How many standard drinks containing alcohol do you have on a typical day? 1 or 2 [facility] How often do you hav e 6 or more drinks on 1 occasion? Never [facility] [employer] [facility] Start: 11-17-2024 Alcohol Comment rarely [facility] Start: 01-04-2025 End: 01-17-2025 SDOH Follow up SDOH Follow up [facility] Work Phone: Sexual Orientation [facility] Medical Equipment Procedure Code Equipment Code Equipment Origin al Text Equipment Identifier Dates Lead Pcng 52cm A tr Vntrc Ingevity+ Xtd Rtrct Fx Is-1 Cnct - [id number] - [id number] FDA Start: 11-09-2024 Lead Pcng 59cm A tr Vntrc Ingevity+ Xtd Rtrct Fx Is-1 Cnct - [id number] - [id number] ()[id number], [id number] FDA Start: 11-09-2024 Cardiac pacemaker, device (physical object) ([id number]) Pacemaker .75cm Acld Mri El 2 Chmbr Is-1 Cnct Avinash Mntr 4.45 - [id number] - [id number] ()[id number] , [id number] FDA Start: 11-09-2024 [id number] Start: 10-12-2024 [id number] Start: 10-12-2024 [id number] Start : 11-09-2024 Goals Date Patient Goal Desired Activity /State Personal health goal Comment on above: Formatting of this n ote might be different from the original. Evaluation of progress towards goal: Pt plans to return home self care with support. Functional Status Date Assessment Result Facility 01-06-2025 Functional status Patient at Baseline [facility] Work Phone: 01-02-2025 Functional status Patient at Baseline [facility] Work Phone: 06-29-2023 Functional Status N/A [facility] Jacek Mental Status Date Assessment Result Facility 01-06-2025 Cognitive function Cognitive Sta tus Patient at Baseline [facility] Work Phone: 01-02-2025 Cognitive function Cognitive Sta tus Patient at Baseline [facility] Work Phone: Clinical Notes 06-29-2023 to 02-16-2025 Cassia Cantu RN - 02/16/2025 12:07 PM EDTTelephone Encounter - Dara Vásquez MA - 02/15/2025 12:52 PM ALEJANDROTGCassia vegas RN - 02/15/2025 12:34 PM EDTMacy Morgan RN - 02/13/2025 12:47 PM EDT Note Date & Type Note Facility 02-16-2025 Note [facility] 02-16-2025 History of Presen t illness Narrative Jatin is here for radiation therapy with continuous [...] Cassia Cantu RN documented in this encounter [facility] 02-15-2025 Telephone encounter Note Brian Reyesmaryjane (son) called the fax copy of his [facility] paperwork never went through. So,he is requesting that his paperwork be sent through email at and to [email or web address]. Done with success. Dara Vásquez MA [facility] 02-15-2025 Note [facility] 02-15-2025 History of Presen t illness Narrative Jatin is here for radiation therapy with continuous pulse oximetry. Pulse SpO2 Pre tx 106-109 97% Cone beam 106-108 97% Post cb 106-108 96-98% Tx 105-107 96-97% Post tx 105 96% Patient tolerated treatment without concerns. Cassia Cantu RN documented in this encounter [facility] 02-14-2025 Telephone encounter Note 1 unit packed RBC's at [facility] on 02-15-25. Went today 02-14-25 for lab draw. Order was faxed. [facility] 02-14-2025 Miscellaneous Notes 1 unit packed RBC's at [facility] on 02-15-25. Went today 02-14-25 for lab draw. Order was faxed. documented in this encounter [facility] 02-14-2025 Telephone encounter Note Pharmacy sends request for 90 day Rx of Ipratropium nasal spray. Order pended if provider agreeable. Thank you, REMA Koroma, [facility] Jig Maker [facility] 02-14-2025 Miscellaneous Notes Pharmacy sends request for 90 day Rx of Ipratropium nasal spray. Order pended if provider agreeable. Thank you, REMA Koroma, PN Jig Maker documented in this encounter [facility] 02-14-2025 History of Presen t illness Narrative Images from the original note were not included. PATIENT NAME: Jatin Koch II CLINIC NO.: [id number] ATTENDING PHYSICIAN: Rasheed Peerz MD DATE OF SERVICE: February 14, 2025 (Marvin) Dear Dr. Chip Carbajal [address] [place] [phone] thank you for referring Jatin Koch II [...] pk/day for 40yrs. 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 C/o hemoptysis. C/o mild dysphagia. 11/17/24: - Recently had a pacemaker implanted on 11/09/24 due to complete heart block, which was an emergency procedure. He reports feeling 100% better since the pacemaker was placed. - Scheduled for bronchoscopy on 11/20/24. - Doing well. - Cough is better. 12/26/24: - Hospitalized from 12/15-12/22/24 with pneumonia - CT C/A/P at [facility] in December 2024 is negative for mets. - C/o right sided chest pain - He will finish antibiotics on Wednesday. 01/02/25: - C/o chills. - Started radiation today - Cycle 1 chemo today. - C/o loss of appetite and weight loss. 01/08/25: - Hospitalized last week with PNA. Treated with Abx. - CT chest at [facility] on 01/02/25 showed T5 lytic lesin. Cannot exclude malignancy - On PO abx - No other complaints. 01/15/25: - C/o worsening chest pain - C/o Shortness of Breath and difficulty swallowing - C/o headache and vision changes. 01/18/25: - Hospitalized at [facility] for pneumonia - C/o chest pain 02/05/25: [...] tablet by mouth daily at bedtime. Ipratropium Circle (ATROVENT) 21 mcg (0.03 %) nasal spray [...] Range Status 02/05/2025 5.6 % Final Abs [facility] Date Value Ref Range Status 02/05/2025 1.10 [...] chemoradiation therapy followed by maintenance durvalumab - MRI brain on 11/02/24 is negative for mets. - Had a pacemaker implanted on 11/09/24 due to complete heart block. Hospitalized from 12/15-12/22/24 with pneumonia - CT C/A/P at [facility] in December 2024 is negative for mets - Right lung, bronchus intermedius, endobronchial biopsy: Squamous cell carcinoma. PD-L1 TPS 0%. - Due for cycle 1 D1 weekly carbo taxol on 01/02/25. Pt developed infusion reaction after starting Taxol infusion. - Developed sweating, hypotension, lethargy, tachycardia etc. Pt was sent to hospital. - CT chest at [facility] on 01/02/25 showed T5 lytic lesion. Cannot [...] - Order 1 unit PRBC transfusion at [facility]. - Educated patient and family on the role of hemoglobin in oxygen transport and the expected improvement in fatigue and weakness following transfusion. - We will repeat PET scan 3-4 weeks after completing radiation therapy and then start maintenance Durvalumab depending on PET findings. - All his questions answered in detail. - F/u in [address] Chip Carbajal [address] [address] thank you for allowing me to participate in Jatin Koch care, if there are any questions or concerns please do not hesitate to contact me at the number below. I spent a total of 30 minutes on the date of the service which included preparing to see the patient, [id number] patient care, completing clinical documentation, obtaining and/or reviewing separately obtained history, performing a medically appropriate examination, counseling and educating the patient/family/caregiver, ordering medications, tests, or procedures, communicating with other HCPs (not separately reported), independently interpreting results (not separately reported), communicating results to the patient/family/caregiver, and care coordination (not separately reported). Tristin Vega APRN, CYCLE CONSULTANT-C, [facility] Provided at: [place], [place] CC: documented in this encounter [facility] 02-14-2025 Note [facility] 02-14-2025 History of Presen t illness Narrative Jatin is here for radiation therapy with continuous pulse oximetry. Pulse SpO2 Pretx 110-113 97-100% Cone beam 111-113 88-99 % Nursing in the treatment room to assess patient and pulse oximeter. Patient denies concerns. Pulse oximeter in place. Patient advised to take easy deep breaths. SpO2 recovered to 95% Post tx 114-118 96-98% Dr. Lizama notified of pulse >115. Dr. Lizama advised to increase pulse parameters from 70-115 to 70-125. Treatment continued. Tx 109-114 94-99% Post tx 109-112 96% Patient tolerated treatment without concerns. Cassia Cantu, RN documented in this encounter [facility] 02-14-2025 Note [facility] 02-13-2025 Note [facility] 02-13-2025 History of Presen t illness Narrative Pt monitored for radiation treatment as ordered. Pre Tx Resting Pulse 119-123, Pulse O 98% BP 91/61. Pt denies feeling his heart is racing, but does report that he has been weak and tired over the weekend. Pt feels he may be dehydrated even though he is trying to push fluids. Pt was discussed with Dr Lizama who gave instruction to proceed with Radiation and administor IV Hydration 1 Liter today if pt is willing. Pre Tx Pluse 119-123 Pulse ox 98% BP 91/61 Cone Beam Pulse 119 Pulse Ox 98% Beam on Pulse 119 Pulse Ox 96% Post Tx Pulse 118 Pulse Ox 96% Macy Morgan RN documented in this encounter [facility] 02-13-2025 Telephone encounter Note Patient's schedule has been adjusted. Patient was scheduled to see a provider tomorrow and his radiation was at 11:45 start, so did a different time in the AM to allow for patient to see CANDICE. Thanks! Carolina Perdue [facility] 02-13-2025 Miscellaneous Notes Patient's schedule has been adjusted. Patient was scheduled to see a provider tomorrow and his radiation was at 11:45 start, so did a different time in the AM to allow for patient to see CANDICE. Thanks! Carolina Perdue Spoke with treatment lead and pt's appointment tomorrow for chemo needs to be moved up to 1130. Cis is a 4 hour treatment and pt will also be getting IV magnesium pre and post cisplatin. Please adjust schedule and notify pt of any time changes when he is here today for radiation. Thanks Blanquita Hargrove RN documented in this encounter [facility] 02-13-2025 Telephone encounter Note Spoke with treatment lead and pt's appointment tomorrow for chemo needs to be moved up to 1130. Cis is a 4 hour treatment and pt will also be getting IV magnesium pre and post cisplatin. Please adjust schedule and notify pt of any time changes when he is here today for radiation. Thanks Blanquita Hargrove RN [facility] Work Phone: 02-09-2025 History of Presen t illness Narrative Jatin Pulliam Crispin ANSARI Date of visit: 02/09/2025 Date of : 1960 Age: 64 y.o. Patient Active Problem List Diagnosis AV block BPH with urinary obstruction Arthritis Gout Squamous cell lung cancer ([facility]-H[facility]) Syncope Pacemaker- [employer] Allergies Allergen Reactions Emend [Aprepitant] Anaphylaxis Etoposide [...] Complaint Patient presents with Follow-up ov/pm d/c [facility] afib med changes ian w pt - aware [facility] office Device Check History of Present Illness Jatin Koch II is here on follow-up after recent ER visits for tachycardia and shortness of breath. He has a history of paroxysmal atrial fibrillation, intermittent complete heart block, lung CA currently receiving radiation treatments managed by [facility] office. He was hospitalized in October at [place] warranting pacemaker: [employer] dual-chamber. Patient has been to the [...] have him set to follow-up in May [place] office. Past Medical History: Diagnosis Date Arthritis Hypertension Lung cancer (CMS-HCC) Sleep apnea No data recorded No data recorded No data recorded Past Surgical History: Procedure Laterality Date EP Invasive DC PPM Left 11/09/2024 Performed by Robert Veloz MD at [facility] (EP) SKIN BIOPSY basal cell carcinoma removed from left anabaptism TONSILLECTOMY TURP / TRANSURETHRAL INCISION / DRAINAGE [...] Wt 75.3 kg (166 lb) BMI 25.24 kg/m No orders of the defined types were placed in this encounter. There are no discontinued medications. IMPRESSIONS/PLAN 1. AV block - Device Interrogation; Future - POCT EKG 2. Pacemaker - Device Interrogation; Future 3. Squamous cell carcinoma of lung, unspecified laterality ([facility]-H[facility]) 1. Intermittent complete heart block s/p [employer] dual-chamber pacemaker 11/09/2024. Known elevated atrial thresholds though stable trends. Device check with the appropriate RV pacing 100% underlying complete heart block. 2. Right lower lobe Ca. Going through radiation treatment. He has had a few bouts of pneumonia as well. Reported anaphylactic reaction to 1 of the agents for treatment. 3. Preserved EF with minimal valvulopathy on echo completed January 2025 at [facility] Continue remote monitoring. Appointment follow-up arranged in May. Patient seen while Dr. Reyna was immediately available in the office suite TODAYS ORDERS Orders Placed This Encounter Procedures Device Interrogation POCT EKG FOLLOW UP Return in about 4 months (around 06/11/2025) for Next scheduled follow up [place] with deven han. PCP: CLINT PRINCE Referring Physician: CLINT Prince [address] [place] [address] [place] [address] CLINT Chowdary 02/09/25 [id number] documented in this encounter [facility] 02-09-2025 History of Presen t illness Narrative I agree with the findings in the scanned document. documented in this encounter [facility] 02-09-2025 Note [facility] 02-09-2025 History of Presen t illness Narrative Jatin is here for radiation therapy with continuous pulse oximetry Pulse SpO2 Pretx 83-108 96-97% Cone beam 91-109 96-97% Post cb 91-114 97% Tx 82-112 97% Post tx 93-110 97% Patient tolerated treatment without concerns. Cassia Cantu RN documented in this encounter [facility] 02-08-2025 Note [facility] 02-08-2025 History of Presen t illness Narrative Pulse Monitored during radiation treatment. Pre Tx Pulse 95 Pulse Ox 97% Cone Beam Pulse 94 Pulse Ox 97% Beam on Pulse 94-97 Pulse Ox 97% Post Tx Pulse 94 Pulse Ox 96% Macy Morgan, PRITI documented in this encounter [facility] 02-08-2025 Miscellaneous Notes Called patient to remind them to bring their most current copy of their medication list with them to their appt. Patient verbalizes understanding. documented in this encounter [facility] 02-08-2025 Telephone encounter Note Called patient to remind them to bring their most current copy of their medication list with them to their appt. Patient verbalizes understanding. [facility] 02-08-2025 Note [facility] 02-08-2025 History of Presen t illness Narrative Patient continued/worsening hiccufs despite taking baclofen, an Rx for thorazine was sent to [facility]. Patient was notified and agrees. Charlotte Butler RN documented in this encounter [facility] 02-08-2025 Telephone encounter Note notified Blanquita Hargrove RN [facility] Work Phone: 02-08-2025 Miscellaneous Notes notified Blanquita Hargrove RN I sent Thorazine to pharmacy. Please tell him to try it. Thank you calls stating pt continues to have constant hard hiccups. Pt has been taking baclofen TID for 3 days now with no relief. RNCC can hear pt's constant hiccups in the background of this phone call. Pt denies any other concerns at this time. Prefers [facility] in [place] if a script is called in. Please advise Blanquita Hargrove RN documented in this encounter [facility] 02-08-2025 Telephone encounter Note I sent Thorazine to pharmacy. Please tell him to try it. Thank you [facility] 02-08-2025 Telephone encounter Note calls stating pt continues to have constant hard hiccups. Pt has been taking baclofen TID for 3 days now with no relief. RNCC can hear pt's constant hiccups in the background of this phone call. Pt denies any other concerns at this time. Prefers [facility] in [place] if a script is called in. Please advise Blanquita Hargrove RN [facility] 02-07-2025 Note [facility] 02-07-2025 History of Presen t illness Narrative Jatin is here for radiation therapy with continuous pulse oximetry. Pulse Oxygen Pre tx 69-77 97% Cone beam 72-81 96-97 % Post cb 72-80 95-97% Tx 73-82 94-97% Post tx 76-79 96 Patient tolerated treatment without concerns. Cassia Cantu RN documented in this encounter [facility] 02-06-2025 Telephone encounter Note Pt notified. Blanquita Hargrove RN [facility] Work Phone: 02-06-2025 Miscellaneous Notes Pt notified. Blanquita Hargrove RN I sent baclofen to pharmacy. Thank you Pt calls stating he continues to have hiccups and would like something called into his pharmacy for him. Pt prefers [facility] [place]. Thanks Blanquita Hargrove RN documented in this encounter [facility] 02-06-2025 Telephone encounter Note I sent baclofen to pharmacy. Thank you [facility] 02-06-2025 Telephone encounter Note Pt calls stating he continues to have hiccups and would like something called into his pharmacy for him. Pt prefers [facility] [place]. Thanks Blanquita Hargrove RN [facility] 02-06-2025 Note [facility] 02-06-2025 History of Presen t illness Narrative Patient Name: Jatin Koch II : 1960 Referred For: Chair massage [...] was in wheelchair --stand-by assist Treatment Plan: Peruvian massage --medium pressure to cervical neck, upper/lower trapezius, mid-lower thoracic and lower back/glutes Care Team contacted: N/A Signature: Madison Gagnon LMT Date: February 06, 2025 Time: 3:09 PM documented in this encounter [facility] 02-06-2025 Note [facility] 02-06-2025 History of Presen t illness Narrative Pulse monitored during radiation treatment. Pre Treatment Pulse 90 Pulse Ox 99% Cone Beam PUlse 83 Pulse Ox 98% Beam On Pulse 82-88 Pulse Ox 98% After Tx Pulse 87 Pulse Ox 97% Macy Weyer, RN documented in this encounter [facility] 02-05-2025 Note [facility] 02-05-2025 History of Presen t illness Narrative Jatin is here for radiation therapy with continuous pulse oximetry. Pulse SpO2 Pretx 74-98 96-98% Cone beam 78-93 95-97% Post cb 93-102 95-98% Beam on 90-65 95-98% Post tx 90-95 95% Patient tolerated treatment without concerns. Cassia Cantu RN documented in this encounter [facility] 02-05-2025 Note [facility] 02-05-2025 History of Presen t illness Narrative Lab potassium 3.2 today, secure chat message sent to Dr Perez orders to give 20 meq IV KCL with today's treatment. Treatment nurse and pharmacy aware PRITI Hernandez RN documented in this encounter [facility] 02-05-2025 Instructions Rasheed Perez MD - 02/05/2025 9:44 AM EDT Treatment this week and next week F/u next week documented in this encounter [facility] 02-05-2025 History of Presen t illness Narrative Images from the original note were not included. PATIENT NAME: Jatin Koch II CLINIC NO.: [id number] ATTENDING PHYSICIAN: Rasheed Perez MD DATE OF SERVICE: 02/05/[address] Chip Carbajal [address] [place] [address] thank you for referring Jatin Koch II [...] pk/day for 40yrs. 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 C/o hemoptysis. C/o mild dysphagia. 11/17/24: - Recently had a pacemaker implanted on 11/09/24 due to complete heart block, which was an emergency procedure. He reports feeling 100% better since the pacemaker was placed. - Scheduled for bronchoscopy on 11/20/24. - Doing well. - Cough is better. 12/26/24: - Hospitalized from 12/15-12/22/24 with pneumonia - CT C/A/P at [facility] in December 2024 is negative for mets. - C/o right sided chest pain - He will finish antibiotics on Wednesday. 01/02/25: - C/o chills. - Started radiation today - Cycle 1 chemo today. - C/o loss of appetite and weight loss. 01/08/25: - Hospitalized last week with PNA. Treated with Abx. - CT chest at [facility] on 01/02/25 showed T5 lytic lesin. Cannot exclude malignancy - On PO abx - No other complaints. 01/15/25: - C/o worsening chest pain - C/o Shortness of Breath and difficulty swallowing - C/o headache and vision changes. 01/18/25: - Hospitalized at [facility] for pneumonia - C/o chest pain 02/05/25: [...] tablet by mouth daily at bedtime. Ipratropium Circle (ATROVENT) 21 mcg (0.03 %) nasal spray [...] Range Status 01/24/2025 32.7 % Final Abs [facility] Date Value Ref Range Status 01/24/2025 0.65 [...] chemoradiation therapy followed by maintenance durvalumab - MRI brain on 11/02/24 is negative for mets. - Had a pacemaker implanted on 11/09/24 due to complete heart block. Hospitalized from 12/15-12/22/24 with pneumonia - CT C/A/P at [facility] in December 2024 is negative for mets - Right lung, bronchus intermedius, endobronchial biopsy: Squamous cell carcinoma. PD-L1 TPS 0%. - Due for cycle 1 D1 weekly carbo taxol on 01/02/25. Pt developed infusion reaction after starting Taxol infusion. - Developed sweating, hypotension, lethargy, tachycardia etc. Pt was sent to hospital. - CT chest at [facility] on 01/02/25 showed T5 lytic lesion. Cannot [...] - F/u in [address] Chip Carbajal [address] [place] [address] thank you for allowing me to participate in [facility] [place], if there are any questions or concerns please do not hesitate to contact me at the number below. I spent a total of 30 minutes on the date of the service which included preparing to see the patient, [id number] patient care, completing clinical documentation, obtaining and/or reviewing separately obtained history, performing a medically appropriate examination, counseling and educating the patient/family/caregiver, ordering medications, tests, or procedures, communicating with other HCPs (not separately reported), independently interpreting results (not separately reported), communicating results to the patient/family/caregiver, and care coordination (not separately reported). Rasheed Perez MD. Hematology/Medical Oncology [facility] [phone] CC: documented in this encounter [facility] 02-05-2025 Note [facility] 02-02-2025 Note [facility] 02-02-2025 History of Presen t illness Narrative Jatin is here for radiation therapy with continuous pulse oximetry . Mrs. Koch reports his blood pressure was 80's/50's this a.m. He states he's feeling a little lightheaded and would like to get IV hydration today. Hydration orders are available from 01/30/25. VS: BP 97/51, P 71, T96.9, R 18, SpO2 96% RA resting. He will receive IV hydration today after radiation therapy. Pulse SpO2% Pretx 74-100 96-99 % Cone beam 64-97 94-98% Beam on tx 79-93 95% Post tx 89-97 95% Patient tolerated treatment with concerns. Cassia Cantu RN documented in this encounter [facility] 02-01-2025 Note [facility] 02-01-2025 History of Presen t illness Narrative Jatin is here for radiation therapy with continuous pulse oximetry. Pulse SpO2 Pretx 93-98 92-98% Cone beam 85-95 95-98% Beam on 92-96 94-99% Post tx 93-96 96% Patient tolerated treatment without concerns. Cassia Cantu RN documented in this encounter [facility] 01-31-2025 Note [facility] 01-31-2025 History of Presen t illness Narrative Jatin is here for radiation therapy with continuous pulse oximetry. Pulse SpO2 Pretx 90-94 97-99% Cone beam 71-103 99% Beam on 88-95 97-98% Post tx 90-94 99% Patient tolerated treatment without concerns. Cassia Cantu RN documented in this encounter [facility] 01-30-2025 Note [facility] 01-30-2025 History of Presen t illness Narrative Patient Name: Jatin Koch II : 1960 Referred For: Chair massage Diagnosis: muscle soreness Chief Complaint: Relaxation Anxiety (pre): patient declined to answer Pain (pre): patient declined to answer Stress Level (pre): patient declined to answer Therapy Provided: Massage Therapy Area(s) Treated: Shoulders, neck and lower back Anxiety (post): patient declined to answer Pain (post): patient declined to answer Stress Level (post): patient declined to answer Visit Outcome: Better Comments: Stand by assist. Patient was in a wheelchair. Treatment Plan: Peruvian massage, effleurage/petrissage, cross fiber friction to upper trapezius, deltoids/triceps/biceps, cervical neck and lower back Care Team contacted: N/A Signature: Madison Gagnon LMT Date: January 30, 2025 Time: 2:52 PM documented in this encounter [facility] 01-30-2025 Note [facility] 01-30-2025 History of Presen t illness Narrative Jatin is here for radiation therapy with continuous pulse oximetry. Pulse SpO2 Pretx 89-94 99% Cone Beam 92-96 98-99% Beam on tx 88-94 96-97% Post tx 89-92 96-97% Patient tolerated treatment well with concerns. Cassia Cantu RN documented in this encounter [facility] 01-30-2025 Telephone encounter Note Faxed paperwork to [employer] @ [phone]. [facility] 01-30-2025 Miscellaneous Notes Faxed paperwork to [employer] @ [phone]. FMLA paperwork for family member has been completed and placed in folder to be signed. Oskar Freeman MA documented in this encounter [facility] 01-30-2025 Telephone encounter Note Jatin was added to the schedule for IVF Lauren B PSS [facility] 01-30-2025 Miscellaneous Notes Jatin was added to the schedule for IVF Lauren B PSS I ordered IV fluids in [place]. Thank you Mrs. Koch called this a.m. stating Jatin would like to get IV fluids today while here. Will you please place orders if you agree? Thanks Cassia Cantu RN documented in this encounter [facility] 01-30-2025 Telephone encounter Note I ordered IV fluids in [place]. Thank you [facility] 01-30-2025 Telephone encounter Note Mrs. Koch called this a.m. stating Jatin would like to get IV fluids today while here. Will you please place orders if you agree? Thanks Cassia Cantu RN [facility] 01-29-2025 History of Presen t illness Narrative Jatin is here for radiation therapy with continuous pulse oximetry monitoring. Pulse SpO2 Pretx 88-91 92-95% Field 1 89-94 93-95% Post tx 86-93 95% Field 2 89-90 93-97% Post tx 92 95% Patient tolerated treatment well without concerns. Cassia Cantu RN documented in this encounter [facility] 01-29-2025 Note [facility] 01-26-2025 Telephone encounter Note [place] paperwork for family member has been completed and placed in folder to be signed. Oskar Freeman MA [facility] 01-26-2025 Note [facility] 01-26-2025 History of Presen t illness Narrative Dr. Perez assessed urine dipstick results, no new orders at this time. States Negative for UTI . Berkley Robbins RN documented in this encounter [facility] 01-26-2025 Note HNO ID: [id number] Author: OSKAR FREEMAN MA Service: ? Author Type: Briar Cutter Type: Progress Notes Filed: 01/26/2025 13:15 Note Text: Back office UA test performed. Results entered in [facility] and doctor notified. Oskar Freeman MA [facility] 01-26-2025 History of Presen t illness Narrative Back office UA test performed. Results entered in [facility] and doctor notified. Oskar Freeman MA documented in this encounter [facility] 01-26-2025 History of Presen t illness Narrative Patient here for radiation therapy with continuous pulse oximetry monitoring. Patient c/o lightheadedness today, worse when standing. IV fluids to be administered after radiation therapy today per Dr. Perez. Pulse SpO2 Pre tx 73-94 98-100% During Field 1 89-93 92-98% Post Field 1 65-96 89-92% Alison, RT asked patient how he was and patient states he is doing well without concerns. Patient instructed to take deep breaths and SpO2 increased to 95%. During Field 2 72-97 92-96% Post tx 95 95% Patient tolerated treatment without concerns. Patient assisted to the infusion area for IV hydration. Cassia Cantu RN documented in this encounter [facility] 01-26-2025 Note [facility] 01-26-2025 Telephone encounter Note MICHAEL gautam. Thank you [facility] 01-26-2025 Miscellaneous Notes MICHAEL gautam. Thank you Jatin is here for radiation therapy. Nursing following up from reported fever of 101.2 yesterday at 1655. Mrs. Koch states his fever broke yesterday and has not had a fever today. VS: BP 115/49 repeat 112/44, P 98, R 20, T 97.5, SpO2 99% resting RA. Manual BP 94/50 P 116 standing. Patient states he feels fuzzy , lightheaded and worse when standing. Patient would like IV fluids today if possible. Dr. Perez notified of the above and in agreement with IV hydration today. 1L NS IV over 1 hour to be given after radiation therapy. Berkley Alexander RN notified of the above and patient added to schedule. Pharmacist to place hydration orders. Thanks Cassia Cantu RN documented in this encounter [facility] 01-26-2025 Telephone encounter Note Jatin is here for radiation therapy. Nursing following up from reported fever of 101.2 yesterday at 1655. Mrs. Koch states his fever broke yesterday and has not had a fever today. VS: BP 115/49 repeat 112/44, P 98, R 20, T 97.5, SpO2 99% resting RA. Manual BP 94/50 P 116 standing. Patient states he feels fuzzy , lightheaded and worse when standing. Patient would like IV fluids today if possible. Dr. Perez notified of the above and in agreement with IV hydration today. 1L NS IV over 1 hour to be given after radiation therapy. Berkley Alexander RN notified of the above and patient added to schedule. Pharmacist to place hydration orders. 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 Thank you [facility] 01-26-2025 Miscellaneous Notes I signed and entered blood culture. Thank you Mrs. Koch called stating she kissed Jatin and he felt warm so she checked his temp and he has a fever of 101.2. She said she will give Tylenol now. He has no complaints. She states he was prescribed Augmentin 875/125mg si tablet BID x 6 weeks when inpatient for possible abscess and has about 2 weeks left until complete. Per Dr. Perez IM: Continue augmentin. Ok to give tylenol. Do blood culture, UA and urine culture and CXR tmrw. Thank you I notified Mrs. Koch of Dr. Perez's response. She denies further questions at this time. I advised her to call the office with increased fever and/or further questions/concerns. PSS: please add hem lab appointment for urine and blood cultures. Patient will come in for lab work prior to his radiation appointment. Patient also needs CXR tomorrow while here. Dr. Perez: I pended CXR, UA, C+S orders but will you please enter the blood culture orders? Thanks Cassia Cantu RN documented in this encounter [facility] 01-25-2025 Telephone encounter Note Mrs. Koch called stating she kissed Jatin and he felt warm so she checked his temp and he has a fever of 101.2. She said she will give Tylenol now. He has no complaints. She states he was prescribed Augmentin 875/125mg si tablet BID x 6 weeks when inpatient for possible abscess and has about 2 weeks left until complete. Per Dr. Perez IM: Continue augmentin. Ok to give tylenol. Do blood culture, UA and urine culture and CXR tmrw. Thank you I notified Mrs. Koch of Dr. Perez's response. She denies further questions at this time. I advised her to call the office with increased fever and/or further questions/concerns. PSS: please add hem lab appointment for urine and blood cultures. Patient will come in for lab work prior to his radiation appointment. Patient also needs CXR tomorrow while here. Dr. Perez: I pended CXR, UA, C+S orders but will you please enter the blood culture orders? Thanks Cassia Cantu, RN [facility] 01-25-2025 Note [facility] 01-25-2025 History of Presen t illness Narrative Pulse and Pulse Ox monitored during RT. Pre Tx pulse 84 pulse ox 94% After Cone Beam Pulse 96 Pulse Ox 94% Beam on Pulse 89-90 Pulse Ox 94% Beam stopped and pulse ox readjusted due to valuies reading 72% on pulse ox with obvious poor reading on monitor. Pulse ox readjusted and pulse ox 99% Beam on Pulse 89 Pulse ox 99% Post Tx Pulse 89 Pulse Ox 98% Macy Morgan RN documented in this encounter [facility] 01-24-2025 Note HNO ID: [id number] Author: CHARLOTTE BUTLER RN Service: ? Author Type: Registered Nurse Type: Progress Notes Filed: 01/24/2025 16:46 Note Text: ANC 0.36 Dr Perez aware orders will continue to monitor Charlotte Butler RN [facility] 01-24-2025 History of Presen t illness Narrative ANC 0.36 Dr Perez aware orders will continue to monitor Charlotte Butler RN documented in this encounter [facility] 01-24-2025 Note [facility] 01-24-2025 History of Presen t illness Narrative Pulse and Pulse Ox Monitored during radiation treatment Pre Tx pulse 87 pulse ox 98% During Cone Beam Pulse 87 Pulse Ox 96% After Cone Beam Pulse 79 Pulse Ox 95% Beam on Pulse 80-86 pulse ox 95-96% Post Tx Pulse 82 Pulse ox 96% Macy Morgan RN documented in this encounter [facility] 01-24-2025 Telephone encounter Note Pt here for radiation and c/o extreme weakness and some increased Shortness of Breath today. He is very fatigued and per spouse, sleeping a lot. VS obtained and 102/71, Pulse 80 Pulse ox 97% on RA. Pt is interested in IV Fluids today if provider is willing to order. Thank you Macy Morgan RN [facility] 01-24-2025 Miscellaneous Notes Pt here for radiation and c/o extreme weakness and some increased Shortness of Breath today. He is very fatigued and per spouse, sleeping a lot. VS obtained and 102/71, Pulse 80 Pulse ox 97% on RA. Pt is interested in IV Fluids today if provider is willing to order. Thank you Macy Morgan RN documented in this encounter [facility] 01-23-2025 Note [facility] 01-23-2025 History of Presen t illness Narrative Patient Name: Jatin Koch II : 1960 Referred For: Chair massage Diagnosis: muscle soreness Chief Complaint: Relaxation Anxiety (pre): patient declined to answer Pain (pre): patient declined to answer Stress Level (pre): patient declined to answer Therapy Provided: Massage Therapy Area(s) Treated: Shoulders, neck and back Anxiety (post): patient declined to answer Pain (post): patient declined to answer Stress Level (post): patient declined to answer Visit Outcome: Better Comments: patient had treatment today. Patient was in wheelchair --stand by assist. Patient a little shaky but states of feeling fine. Periodically checked in with patient on pressure and how he was feeling. Patient states of doing well and pressure is tolerable Treatment Plan: slow Firm pressure, Peruvian massage effleurage/petrissage, cross fiber friction to upper/lower trapezius, cervical neck/occipital ridge, bilateral rhomboids major/minor, lower back Care Team contacted: N/A Signature: Madison Gagnon LMT Date: January 23, 2025 Time: 3:15 PM documented in this encounter [facility] 01-23-2025 Note [facility] 01-23-2025 History of Presen t illness Narrative Pulse monitored during radiation treatment. Pre Tx Pluse 101 Pulse Ox 96% After Cone beam Pulse 74 Pulse ox 98% Beam on pulse 74-102 & pulse ox 97-98% Post Tx Pluse 93 Pulse Ox 96% Macy Morgan RN documented in this encounter [facility] 01-23-2025 Note [facility] 01-23-2025 History of Presen t illness Narrative PALLIATIVE MEDICINE CONSULT NOTE SERVICE DATE: January 23, 2025 IDENTIFICATION AND INTRODUCTION: Jatin Koch II is a 64 year old male This visit took place In Ambulatory [facility] Facility Consultation requested by Rasheed Braga MD for an opinion regarding symptom management. My final recommendations will be communicated back to the requesting physician by way of shared Medical record or letter to requesting physician via US mail. CHIEF COMPLAINT; Neoplasm related Pain PERTINENT MEDICAL HISTORY: Squamous cell lung cancer Complete Heart Block s/p pacemaker Subjective Met with Jatin and his whom is a retired Hospice Nurse. He ias alert, oriented, x3, NAD. Shortness of Breath at baseline today, no edema, or chest pain, several hospitalizations for PNA, finishing Augmentin. Chronic cough controlled with tessalon Perles, Dyspnea with exertion. Pain in thoracic back, consistent with are of cancer, improved with oxycodone. Losing weight, poor appetite, did not tolerate megace, thrush resolving, no improvement with cannabis Having episodes of symptomatic hypotension, on midodrine, also on 50 mg of toprol ER. Constant rhinorrhea, using benadryl bid, but complains of fatigue and pill burden REVIEW OF SYSTEMS: Modified ESAS ([place] Symptom Assessment Scale) Information Provided By: Patient and Family member Pain: Moderate Nausea: Mild Loss of Appetite: Moderate Constipation: None Shortness of Breath: Mild Drowsiness: None Tiredness: Mild Depression: None Anxiety: None Objective PHYSICAL EXAMINATION: BP 92/62 Pulse 110 Temp 36.4 C (97.6 F) (Temporal) Resp 18 Wt 75.4 kg (166 lb 3.6 oz) SpO2 98% BMI 25.64 kg/m General Appearance: No apparent distress Skin: No jaundice and No rash Eyes: Normal and No Icterus HENT: Atraumatic and Oropharnyx clear with moist mucous membranes Neck: Grossly normal, No masses, and No JVD Lungs: Diminished breath sounds located and normal effort CV: Regular rate and rhythm Abdomen: Soft, Nontender, and Bowel sounds normal Musculoskeletal: No edema and No gross deformity Lymphatics: Not examined Neuro: Alert and oriented to time place and person Psych: Well groomed, Affect congruent with mood, and Good eye contact DATA: Diagnostic tests reviewed for today's visit: Most recent labs and imaging results. Creatinine Date Value Ref Range Status 01/15/2025 0.90 0.73 - 1.22 mg/dL Final Estimated Creatinine Clearance: 80 mL/min (based on SCr of 0.9 mg/dL). Opioid Management: Indication for Opioid Prescribing: Cancer related pain ORT-OUD Score: 2 A score of 3 or higher may indicate a higher risk for future development of aberrant drug related behavior or opioid use disorder. Informed consent for chronic opiate therapy obtained and written pain agreement: On file Naloxone offered?: Previously declined, after discussing risks and benefits Course of treatment, patient's response and adherence to the prescribed treatment plan reviewed, including non-pharmacological and non-opioid treatment modalities? Yes Have any complications or exacerbations of the underlying condition causing the pain been reviewed? Yes How much does pain impede patient s ability to engage in work or other purposeful activities, interfere with your activities of daily living, physical activity, or quality of your family life and social activities? Significantly Aberrancies in pain panel? No Any aberrant drug related behaviors since last visit? No Rationale for continuing opioid treatment: Improved comfort and function based on an ongoing functional assessment Benefits of Opioid Therapy outweigh risks: Yes Prescribed Morphine Equivalent Daily Dose (MEDD): Yes > 50 MEDD Yes, I am certified in Hospice and Palliative Care, Hematology, Medical Oncology or Pain Medicine OARRS Checked: PDMP website checked and validated. All prescriptions have been APPROPRIATELY filled. No suspicious activity was identified. 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 I spent a total of 45 minutes on the date of the service which included preparing to see the patient, [id number] patient care, completing clinical documentation, obtaining and/or reviewing separately obtained history, performing a medically appropriate examination, counseling and educating the patient/family/caregiver, ordering medications, tests, or procedures, communicating with other HCPs (not separately reported), independently interpreting results (not separately reported), communicating results to the patient/family/caregiver, and care coordination (not separately reported). Next Visit: 3 Months in-person Palliative Medicine Nurse to do telephonic follow-up: Yes Global Security Architect Services: None at this time Referral to [facility]: No, not at this time Sheila Freeman NP, 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 [employer]BED January 23, 2025 11:03 AM This note may have been partially generated using the [employer] voice recognition system. While every effort was made to correct voice recognition errors, kindly be aware that some errors may occasionally occur. documented in this encounter [facility] 01-23-2025 Telephone encounter Note Palliative Medicine Care Coordination New Patient Note Patient identified by name and date of : Yes Spoke with [employer] message Nurse introduced self and role of Receptionist Secretary in Palliative Medicine. Reviewed contact sheet information and on-call process. Nurse educated patient on medication refill process. Nurse encouraged patient to call with any questions/concerns/symptom related issues. Ricardo Alva RN [facility] 01-23-2025 Miscellaneous Notes Palliative Medicine Care Coordination New Patient Note Patient identified by name and date of : Yes Spoke with [employer] message Nurse introduced self and role of Receptionist Secretary in Palliative Medicine. Reviewed contact sheet information and on-call process. Nurse educated patient on medication refill process. Nurse encouraged patient to call with any questions/concerns/symptom related issues. Ricardo Alva RN documented in this encounter [facility] 01-23-2025 Sheila Chirinos APRN.ABBEY - 01/23/2025 8:52 AM EDT Sheila Freeman CNP Department of Palliative and Supportive Care Palliative Care - Specialty services in symptom management and support For questions or prescription refills, call: [phone] Wednesday - Wednesday 9AM-5PM MARIELLA Estrella, RN - Receptionist Secretary Please call 3-5 days in advance for medication refills Evenings, Weekends, Holidays: [phone] (ask for palliative medicine on-call provider) For appointments, cancellations or reschedule, call: [phone] documented in this encounter [facility] 01-22-2025 Note [facility] 01-22-2025 History of Presen t illness Narrative Pulse and Pulse Ox monitored for radiation treatment. Pre Tx: Pulse 107 Pulse Ox 96% RA During [facility] Beam : Pulse 72 Pulse Ox 100 Beam on: Pulse 95-100, Pulse Ox 94-98% Post Tx Pulse 95 Pulse Ox 96%. Macy Morgan RN documented in this encounter [facility] 01-19-2025 Note [facility] 01-18-2025 Note [facility] 01-18-2025 History of Presen t illness Narrative Radiation Oncology - On Treatment Review (OTR) Note PATIENT NAME: Jatin Koch II PATIENT DIAGNOSIS: Mr. Koch is a 64-year-old gentleman diagnosed with a locally advanced non-small cell lung cancer arising from the right chest status post bronchoscopy/biopsy on 10/16/2024 and PET/CT on 10/18/2024 noting the right infrahilar primary lung malignancy with confluent subcarinal and posterior mediastinal lymphadenopathy and no other distant disease. COURSE: definitive and concurrent chemotherapy AREA TREATED: Chest CURRENT DOSE: 1200 cGy in 6 fx PLANNED DOSE: 6000 cGy in 30 fx SUBJECTIVE: Mr. Koch was discharged today from the hospital being treated for a pneumonia. He continues to note shortness of breath and chest discomfort and continues with antibiotics. EXAM: KPS: 80 General Appearance: Alert and oriented. No acute distress. Radiation dermatitis: No IMAGING/LAB RESULTS: None Treatment chart checked: Yes Patient treatment site reviewed and verified:Yes Port films reviewed and current:Yes Medications started: None ASSESSMENT/PLAN: Clinically stable. Side effects are within expected parameters. Continue radiation treatment as planned. Ezra Lizama MD documented in this encounter [facility] 01-18-2025 Note [facility] 01-18-2025 Note [facility] 01-17-2025 Telephone encounter Note Records from patients [facility] visit have been scanned in. Charlotte Caldwell Pss [facility] 01-17-2025 Miscellaneous Notes Records from patients [facility] visit have been scanned in. Charlotte Caldwell Pss OK fine. Thank you FYI: Message received from pt's spouse that pt was diagnosed w/ pneumonia. Will be admitted to [facility] for IV antibiotics. Jimmy: Please scan pt's hospital records. Thanks! Ileana Bear RN documented in this encounter [facility] 01-15-2025 Telephone encounter Note OK fine. Thank you [facility] 01-15-2025 Telephone encounter Note FYI: Message received from pt's spouse that pt was diagnosed w/ pneumonia. Will be admitted to [facility] for IV antibiotics. Jimmy: Please scan pt's hospital records. Thanks! Ileana Bear RN [facility] Work Phone: 01-15-2025 Instructions Rasheed Perez MD - 01/15/2025 11:49 AM EDT Please schedule an appt after the hospital discharge. documented in this encounter [facility] 01-15-2025 Radiology Diagnostic study note [facility] [place] [address] [place], [place] [id number] CT Scan Report Signed Patient: Jatin Koch II MR#: [id number] : 1960 Acct:[id number] Age/Sex: 64 / M ADM Date: 5 Loc: ER Room: Type: [facility] ER Attending Dr: Copies to: Angelica Lawler DO~ Ordering Provider: Angelica Lawler DO Date of Service: 01/15/25 CT/CT angio chest PE protocol: lung cancer, L side pain sudden, tachy CT angio chest PE protocol 01/15/2025 11:16 AM SIGN AND SYMPTOMS: Left weakness, history of lung cancer CONTRAST: 75 mL of intravenous Isovue-370 TECHNIQUE: Multidetector CT axial slices of the chest were obtained with IV contrast. Multiplanar and 3-D reformats were performed and viewed on a separate workstation and reviewed to further define anatomy and possible pathology. CT was performed with one or more of the following dose reduction techniques: Automated exposure control, adjustment of the mA and/or kV according to patient size, or use of iterative reconstruction technique. COMPARISON: 01/02/2025. FINDINGS: Lower neck: Thyroid gland within normal limits, no supraclavicle adenopathy. Vessels: Atherosclerotic changes are present in the thoracic aorta and coronary arteries. There is no evidence of pulmonary embolism. Mediastinum and Jere: There is masslike soft tissue prominence in the subcarinalregion and into the jere right greater than left encasing the right mainstem bronchus similar to the prior exam. This measures at least 3.7 x 7.7 cm in axial dimension. Heart: Normal size. No pericardial effusion. Airways: There is narrowing of the right mainstem bronchus with occlusion of thesegmental bronchus to the right lower lobe secondary to the mediastinal and right hilar mass similar to the prior exam. Lungs: There is postobstructive consolidation/pneumonia involving the entirety of the right lower lobe with areas of groundglass attenuation is noted in the right middle lobe similar to the prior exam. Pleura: Within normal limits. Chest Wall: Within normal limits. Upper Abdomen: Within normal limits. Bones: There is a 1 cm area of lucency within the T5 vertebral body posteriorly near the inferior endplate similar to the prior study. Degenerative changes arenoted in the shoulders. There are partially calcified central disc protrusions at T7-T8, T8-T9, T9-T10, and T11-T12 contributing to spinal canal stenosis greatest at T11-T12. This is similar to the prior exam. CT/CT angio chest PE protocol IMPRESSION: There is no evidence of pulmonary embolism. There is masslike soft tissue prominence in the subcarinal region and into the jere right greater than left encasing the right mainstem bronchus similar to theprior exam. This measures at least 3.7 x 7.7 cm in axial dimension. There is narrowing of the right mainstem bronchus with occlusion of the segmental bronchus to the right lower lobe secondary to the mediastinal and right hilar mass similar to the prior exam. There is postobstructive consolidation/pneumonia involving the entirety of the right lower lobe with areas of groundglass attenuation is noted in the right middle lobe similar to the prior exam. There are partially calcified central disc protrusions at T7-T8, T8-T9, T9-T10, and T11-T12 contributing to spinal canal stenosis greatest at T11-T12. This is similar to the prior exam. Impression dictated by: Jose Antonio Lainez M.D. 01/15/2025 11:33 AM Dictation Location: [place] [address] Transcribed By: [facility] 01/15/25 1133 Dictated By: Jose Antonio Lainez II, MD 01/15/25 1124 Signed By: 01/15/25 1133 [facility] Work Phone: 01-15-2025 History of Presen t illness Narrative Images from the original note were not included. PATIENT NAME: Jatin Tubbs Crispin [facility] NO.: [id number] ATTENDING PHYSICIAN: Rasheed Perez MD DATE OF SERVICE: 01/15/[address] Chip Carbajal [address] [place] [address] thank you for referring Jatin Koch II for an opinion regarding Lung cancer. Some of the elements of this note have been copied from my previous progress note dated 01/08/25 . All the information has been reviewed carefully. CHIEF COMPLAINT: Lung cancer HPI: Jatin Koch II is a 63 year old year old male with PMH of HTN referred to us for lung cancer. CT chest : PET scan: C/o cough and lost 30lbs. Quit smoking in 2017. Smoked 1 pk/day for 40yrs. 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 C/o hemoptysis. C/o mild dysphagia. 11/17/24: - Recently had a pacemaker implanted on 11/09/24 due to complete heart block, which was an emergency procedure. He reports feeling 100% better since the pacemaker was placed. - Scheduled for bronchoscopy on 11/20/24. - Doing well. - Cough is better. 12/26/24: - Hospitalized from 12/15-12/22/24 with pneumonia - CT C/A/P at [facility] in December 2024 is negative for mets. - C/o right sided chest pain - He will finish antibiotics on Wednesday. 01/02/25: - C/o chills. - Started radiation today - Cycle 1 chemo today. - C/o loss of appetite and weight loss. 01/08/25: - Hospitalized last week with PNA. Treated with Abx. - CT chest at [facility] on 01/02/25 showed T5 lytic lesin. Cannot exclude malignancy - On PO abx - No other complaints. 01/15/25: - C/o worsening chest pain - C/o Shortness of Breath and difficulty swallowing - C/o headache and vision changes. Current Outpatient Medications Medication Sig clindamycin (CLEOCIN) 300 mg capsule cefdinir (OMNICEF) 300 mg capsule esomeprazole (NEXIUM) 40 mg capsule Take 40 mg by mouth. diphenhydrAMINE (BENADRYL) 25 mg capsule Take 25 mg by mouth. reishi mushroom extract 188 mg cap Take by mouth. megestrol (MEGACE) 400 mg/10 mL (40 mg/mL) suspension Take 10 mL by mouth two times a day. sennosides-docusate sodium (SENNA PLUS) 8.6-50 mg capsule Take 1 capsule by mouth two times a day as needed for constipation. prochlorperazine (COMPAZINE) 10 mg tablet Take 1 tablet by mouth every 6 hours as needed. ondansetron (ZOFRAN) 8 mg tablet Take 1 tablet by mouth every 8 hours as needed for nausea/vomiting. HERBAL DRUGS MISC 1 capsule once daily. Moringa/Soursop OTC PRODUCT THC 10mg am and 5mg with lunch and supper - appetite, pain, energy albuterol HFA (PROVENTIL HFA, VENTOLIN HFA) 90 [...] Take 25 mg by mouth once daily. No current facility-administered medications for this visit. Facility-Administered Medications Ordered in Other Visits Medication Dose Route Frequency etoposide phosphate 97 mg in NaCl 0.9% 114.85 mL 50 mg/m2 (Treatment Plan Recorded) INTRAVENOUS ONCE NaCl 0.9% iv infusion 500-999 mL/hr INTRAVENOUS PRN diphenhydrAMINE 50 mg injection (BENADRYL) 50 mg INTRAVENOUS PRN hydrocortisone sodium succinate (PF) 100 mg injection (Solu-CORTEF) 100 mg INTRAVENOUS PRN EPINEPHrine 1 mg/mL (1 mL) 0.3 mg injection 0.3 mg INTRAMUSCULAR PRN sodium chloride 0.9 % (flush) 10-20 mL (BD POSIFLUSH) 10-20 mL INTRAVENOUS PRN sodium chloride 0.9 % (flush) 10-20 mL (BD POSIFLUSH) 10-20 mL INTRAVENOUS DIRECTED PRN ALLERGIES Allergen Reactions Taxol [Paclitaxel] Other: See [...] : Deferred LABS: Glucose (mg/dL) Date Value 01/08/2025 131 Potassium (mmol/L) Date Value 01/08/2025 3.6 Sodium (mmol/L) Date Value 01/08/2025 136 Chloride (mmol/L) Date Value 01/08/2025 102 CO2 (mmol/L) Date Value 01/08/2025 22 Creatinine (mg/dL) Date Value 01/08/2025 0.70 BUN (mg/dL) Date Value 01/08/2025 8 Anion Gap (mmol/L) Date Value 01/08/2025 12 Calcium, Total (mg/dL) Date Value 01/08/2025 9.1 Protein, Total (g/dL) Date Value 01/08/2025 6.9 Albumin (g/dL) Date Value 01/08/2025 3.6 Bilirubin, Total (mg/dL) Date Value 01/08/2025 0.3 Alkaline Phosphatase (U/L) Date Value 01/08/2025 61 AST (U/L) Date Value 01/08/2025 27 ALT (U/L) Date Value 01/08/2025 37 WBC Date Value Ref Range Status 01/08/2025 15.86 (H) 3.70 - 11.00 k/uL Final RBC Date Value Ref Range Status 01/08/2025 3.91 (L) 4.20 - 6.00 m/uL Final Hemoglobin Date Value Ref Range Status 01/08/2025 10.5 (L) 13.0 - 17.0 g/dL Final Hematocrit Date Value Ref Range Status 01/08/2025 33.0 (L) 39.0 - 51.0 % Final MCV Date Value Ref Range Status 01/08/2025 84.4 80.0 - 100.0 fL Final MCH Date Value Ref Range Status 01/08/2025 26.9 26.0 - 34.0 pg Final MCHC Date Value Ref Range Status 01/08/2025 31.8 30.5 - 36.0 g/dL Final RDW-CV Date Value Ref Range Status 01/08/2025 14.8 11.5 - 15.0 % Final Platelet Count Date Value Ref Range Status 01/08/2025 315 150 - 400 k/uL Final MPV Date Value Ref Range Status 01/08/2025 9.0 9.0 - 12.7 fL Final Abs Neut Date Value Ref Range Status 01/08/2025 12.61 (H) 1.45 - 7.50 k/uL Final Lymphocytes % Date Value Ref Range Status 01/08/2025 11.5 % Final Abs Lymph Date Value Ref Range Status 01/08/2025 1.83 1.00 - 4.00 k/uL Final Monocytes % Date Value Ref Range Status 01/08/2025 4.7 % Final Abs [facility] Date Value Ref Range Status 01/08/2025 0.74 <0.87 k/uL Final Abs Eosin Date Value Ref Range Status 01/08/2025 0.48 (H) <0.46 k/uL Final Basophils % Date Value Ref Range Status 01/08/2025 0.3 % Final Abs Baso Date Value Ref Range Status 01/08/2025 0.05 <0.11 k/uL Final PATH: IMAGING: PET scan [...] chemoradiation therapy followed by maintenance durvalumab - MRI brain on 11/02/24 is negative for mets. - Had a pacemaker implanted on 11/09/24 due to complete heart block. Hospitalized from 12/15-12/22/24 with pneumonia - CT C/A/P at [facility] in December 2024 is negative for mets - Right lung, bronchus intermedius, endobronchial biopsy: Squamous cell carcinoma. PD-L1 TPS 0%. - Due for cycle 1 D1 weekly carbo taxol on 01/02/25. Pt developed infusion reaction after starting Taxol infusion. - Developed sweating, hypotension, lethargy, tachycardia etc. Pt was sent to hospital. - CT chest at [facility] on 01/02/25 showed T5 lytic lesion. Cannot exclude malignancy. Monitor for now. PLAN: 1. Malignant neoplasm of lower lobe of right lung (HCC) - ICD9: 162.5, ICD10: C34.31 - Not Doing well - Recd cycle 1 cisplatin etoposide from 01/08-01/12/25. - Due for C1 D8 cisplatin today - C/o worsening chest pain - C/o Shortness of Breath and difficulty swallowing - C/o headache and vision changes. - Called EMS and sent him to ER for further evaluation - We will resume chemoRT after the discharge. - All his questions answered in detail. - F/u in [address] Chip Carbajal [address] [place] [address] thank you for allowing me to participate in [facility] [place], if there are any questions or concerns please do not hesitate to contact me at the number below. I spent a total of 30 minutes on the date of the service which included preparing to see the patient, [id number] patient care, completing clinical documentation, obtaining and/or reviewing separately obtained history, performing a medically appropriate examination, counseling and educating the patient/family/caregiver, ordering medications, tests, or procedures, communicating with other HCPs (not separately reported), independently interpreting results (not separately reported), communicating results to the patient/family/caregiver, and care coordination (not separately reported). Rasheed Perez MD. Hematology/Medical Oncology [facility] [phone] CC: documented in this encounter [facility] 01-15-2025 Note [facility] 01-12-2025 Note [facility] 01-12-2025 History of Presen t illness Narrative Jatin is here for radiation therapy with continuous pulse oximetry. Pulse SpO2 Pre tx 99-100 97 Tx 76-102 97-98 Post tx 97 97 Patient tolerated treatment well without concerns. Cassia Cantu RN documented in this encounter [facility] 01-11-2025 Telephone encounter Note CYCLE 1/DAY 1 POST TREATMENT CALL Today's date: January 11, 2025 Treatment Regimen: cisplatin, RADIOGRAPHER ANGIOGRAM-16 C1D1 Date: 01/08/25 Called patient to follow-up on symptom management. Spoke with patient's Pt's states pt has been doing well for the most part. His appetite is hit or miss. Smells really seem to bother him. Has taken compazine with good relief. Denies D/C. States he ran a fever of 102.2 last night, it broke, and he's been afebrile since. Pt is more fatigued than normal but overall doing ok. Any new referrals needed? No Reinforced CURRENT treatment education based on current and anticipated symptoms. Discussed port/line care and patient verbalizes understanding: Yes Patient instructed to contact office or after hours Hematology/Oncology fellow for: temperature >= 100.4; questions or concerns. Patient verbalized understanding of when to seek medical attention and after hours number protocol. Blanquita Hargrove RN [facility] Work Phone: 01-11-2025 Miscellaneous Notes CYCLE 1/DAY 1 POST TREATMENT CALL Today's date: January 11, 2025 Treatment Regimen: cisplatin, RADIOGRAPHER ANGIOGRAM-16 C1D1 Date: 01/08/25 Called patient to follow-up on symptom management. Spoke with patient's Pt's states pt has been doing well for the most part. His appetite is hit or miss. Smells really seem to bother him. Has taken compazine with good relief. Denies D/C. States he ran a fever of 102.2 last night, it broke, and he's been afebrile since. Pt is more fatigued than normal but overall doing ok. Any new referrals needed? No Reinforced CURRENT treatment education based on current and anticipated symptoms. Discussed port/line care and patient verbalizes understanding: Yes Patient instructed to contact office or after hours Hematology/Oncology fellow for: temperature >= 100.4; questions or concerns. Patient verbalized understanding of when to seek medical attention and after hours number protocol. Blanquita Hargrove RN documented in this encounter [facility] 01-11-2025 Note [facility] 01-11-2025 History of Presen t illness Narrative Jatin is here for radiation therapy with continuous pulse oximetry. Pulse SpO2 Pre tx 83 98 Tx 83-6 94-99 Post tx 89 98 Patient tolerated treatment well. C/o slight lightheadedness upon sitting up post tx. When symptom subsided, patient assisted to waiting room with Rolator. Patient denies needs at this time. Cassia aCntu RN documented in this encounter [facility] 01-10-2025 Note [facility] 01-10-2025 History of Presen t illness Narrative Radiation Oncology - On Treatment Review (OTR) Note PATIENT NAME: Jatin Koch II PATIENT DIAGNOSIS: Mr. Koch is a 64-year-old gentleman diagnosed with a locally advanced non-small cell lung cancer arising from the right chest status post bronchoscopy/biopsy on 10/16/2024 and PET/CT on 10/18/2024 noting the right infrahilar primary lung malignancy with confluent subcarinal and posterior mediastinal lymphadenopathy and no other distant disease. COURSE: definitive and concurrent chemotherapy AREA TREATED: Chest CURRENT DOSE: 600 cGy in 3 fx PLANNED DOSE: 6000 cGy in 30 fx SUBJECTIVE: Tolerating XRT well and notes dyspnea on exertion which is somewhat improved as well as slightly improved cough. Denies any chest pain or hemoptysis. He notes improving energy and appetite with stable hydration. He is currently on a course of antibiotics. EXAM: KPS: 80 General Appearance: Alert and oriented. No acute distress. Radiation dermatitis: No IMAGING/LAB RESULTS: None Treatment chart checked: Yes Patient treatment site reviewed and verified:Yes Port films reviewed and current:Yes Medications started: None ASSESSMENT/PLAN: Clinically stable. No significant treatment-related side effects. Continue radiation treatment as planned. We reviewed general precautions/instructions during radiation treatment to the chest as well as the potential acute toxicities during treatment and their time course. Discussed the importance of a well-balanced diet, hydration, and exercise/activity as tolerated through the course of treatment. Ezra Lizama MD documented in this encounter [facility] 01-10-2025 Note HNO ID: [id number] Author: MACY MORGAN RN Service: ? Author Type: Registered Nurse Type: Progress Notes Filed: 01/10/2025 12:39 Note Text: Pulse and Pulse ox monitored during radiation treatment. Macy Morgan RN [facility] 01-10-2025 History of Presen t illness Narrative Pulse and Pulse ox monitored during radiation treatment. Macy Morgan RN documented in this encounter [facility] 01-09-2025 Note [facility] 01-09-2025 History of Presen t illness Narrative Jatin is here for radiation therapy with continuous pulse oximetry during treatment. Pulse SpO2 Pretx 79-86 97% Tx 78-81 94-95% Post tx 77 95% Patient tolerated treatment without concerns. Cassia Cantu RN documented in this encounter [facility] 01-09-2025 Telephone encounter Note Patient previously had reaction with taxol infusion last week. Treatment changed to cisplatin/etoposide today. Pt proceeded to have another reaction after etoposide started. 1410-pt reports feeling lightheaded and dizzy. Etoposide stopped and NS started. Pt became flushed with face turning purple. Treatment chair laid flat. Dr. Lunsford called overhead and Dr. Perez came to chairside. 1412-100 mg iv solu-cortef given. Unable to obtain BP, HR 98. Pt remained alert. C/o mild Shortness of Breath and oxygen mask applied at 6L. 1414- 50 mg IV benadryl given. BP 65 systolic, unable to hear diastolic. HR 97, pulse ox 98, oxygen lowered to 3L. Pt continues to have facial flushing but reports starting to feel better. 1418-20 mg IV pepcid given. BP 94/60, HR 99, pulse ox 99. 1426-Symptoms resolving. BP 96/63, HR 99. Oxygen removed. Pulse ox 100%. 1430-Remainder of etoposide to be discarded. Pt will be re-challenged with etoposide phosphate tomorrow per Dr. Perez and Lianna Lucas [facility] discussion. Allergies updated to include polysorbate 80 and chremophor. T [facility] 01-09-2025 Miscellaneous Notes Patient previously had reaction with taxol infusion last week. Treatment changed to cisplatin/etoposide today. Pt proceeded to have another reaction after etoposide started. 1410-pt reports feeling lightheaded and dizzy. Etoposide stopped and NS started. Pt became flushed with face turning purple. Treatment chair laid flat. Dr. Lunsford called overhead and Dr. Perez came to chairside. 1412-100 mg iv solu-cortef given. Unable to obtain BP, HR 98. Pt remained alert. C/o mild Shortness of Breath and oxygen mask applied at 6L. 1414- 50 mg IV benadryl given. BP 65 systolic, unable to hear diastolic. HR 97, pulse ox 98, oxygen lowered to 3L. Pt continues to have facial flushing but reports starting to feel better. 1418-20 mg IV pepcid given. BP 94/60, HR 99, pulse ox 99. 1426-Symptoms resolving. BP 96/63, HR 99. Oxygen removed. Pulse ox 100%. 1430-Remainder of etoposide to be discarded. Pt will be re-challenged with etoposide phosphate tomorrow per Dr. Perez and Lianna Lucas [facility] discussion. Allergies updated to include polysorbate 80 and chremophor. documented in this encounter [facility] 01-08-2025 Note [facility] 01-08-2025 History of Presen t illness Narrative Jatin is here for radiation with continuous pulse oximetry during treatment. Pulse SpO2 Pretx 81-91 98% During 85-89 98% Post tx 83-87 98% Patient c/o lightheadedness when sitting up post treatment. BP 96/64. Patient assisted to dressing after he said lightheadedness improved. Patient denies further needs. Cassia Cantu RN documented in this encounter [facility] 01-08-2025 Note HNO ID: [id number] Author: Oswaldo GHOSH MD Service: ? Author Type: Physician Type: Progress Notes Filed: 01/08/2025 16:27 Note Text: Films reviewed [facility] 01-08-2025 History of Presen t illness Narrative Films reviewed documented in this encounter [facility] 01-08-2025 Note [facility] 01-08-2025 History of Presen t illness Narrative 1410-pt reports feeling lightheaded and dizzy. Etoposide stopped and NS started. Pt became flushed with face turning purple. Treatment chair laid flat. Dr. Lunsford called overhead and Dr. Perez came to chairside. 1412-100 mg iv solu-cortef given. Unable to obtain BP, HR 98. Pt remained alert. C/o mild Shortness of Breath and oxygen mask applied at 6L. 1414- 50 mg IV benadryl given. BP 65 systolic, unable to hear diastolic. HR 97, pulse ox 98, oxygen lowered to 3L. Pt continues to have facial flushing but reports starting to feel better. 1418-20 mg IV pepcid given. BP 94/60, HR 99, pulse ox 99. 1426-Symptoms resolving. BP 96/63, HR 99. Oxygen removed. Pulse ox 100%. 1430-Remainder of etoposide to be discarded. Pt will be re-challenged with etoposide phosphate tomorrow per Dr. Perez and Lianna Lucas, [facility] discussion. Pt reaction to Etoposide, see tx nurse detailed notes. Unable to finish Potassium d/t time constraint. Pt received 10 meq[address] Orders received from Dr. Perez for pt to get 20 meq when he is back for tx tomorrow. Pharmacy to enter new orders. Tx nurse informed. Bee Ovalle RN K 3.[address] Perez. Orders received to give K 20 meq IV x1 today. Pharmacy to enter orders. Tx nurse informed. Bee Ovalle RN Emend removed from plan per Dr. Perez d/t severe Taxol reaction last week and correlation between Taxol/Emend. Pharmacy to remove and tx nurse informed. Bee Ovalle RN documented in this encounter [facility] 01-08-2025 Note [facility] 01-08-2025 History of Presen t illness Narrative SOCIAL WORK FOLLOW UP NOTE: CANCER CENTER Date of service:01/08/2025 Jatin Koch II is being seen for a follow up social work visit. Today's visit includes: spouse and patient TOPICS ADDRESSED: coping/support PLAN: Continue follow up as needed Assigned SW listed in Care Team tab: Yes Dr. Lunsford called for this Patient who was having a reaction. SW comforted who was at chairside. mentioned that the Patient had a reaction last week during tx. 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 She was appreciative of the visit and support. SW will plan to meet again with Patient and to complete a psychosocial assessment. LINDSAY Rodriguez Advance Care Planning Goals of Care In this encounter: AD not discussed due to Patient having a reaction to treatment. SW will try another time to assess for AD's. documented in this encounter [facility] 01-08-2025 Note [facility] 01-08-2025 Note Addended by: RASHEED SEGUNDO on: 01/08/2025 01:02 PM Modules accepted: Orders [facility] 01-08-2025 Miscellaneous Notes Addended by: RASHEED PEREZ on: 01/08/2025 01:02 PM Modules accepted: Orders documented in this encounter [facility] 01-08-2025 Miscellaneous Notes Pts calls office today regarding episode of lower BP reading at [facility]. See previous chart notes from 12/28/24 for further details and msg thread documented in this encounter [facility] 01-08-2025 Telephone encounter Note Pts calls office today regarding episode of lower BP reading at [facility]. See previous chart notes from 12/28/24 for further details and msg thread [facility] 01-08-2025 Note [facility] 01-08-2025 Note [facility] 01-08-2025 Instructions Rasheed Perez MD - 01/08/2025 10:08 AM EDT Treatment this week and next week F/u in 1 week documented in this encounter [facility] 01-08-2025 Note [facility] 01-08-2025 History of Presen t illness Narrative ONCOLOGY PATIENT EDUCATION NOTE TOPIC: Chemotherapy, Medications: Cisplatin, RADIOGRAPHER ANGIOGRAM-16 with radiation patient here today for education for treatment of Non-Small Cell Lung Cancer Anticipated/Scheduled start date: today READINESS TO LEARN: COGNITIVE ABILITY: Alert and oriented MOTIVATION TO LEARN: Interested FAMILY SUPPORT: High - Very involved in pt care INSTRUCTION PROVIDED TO: Patient and Spouse INSTRUCTION PROVIDED BY: Nurse Coordinator PATIENT LEARNS BEST BY: Multiple Methods FACTORS [...] Chemotherapy education was provided by a pharmacist NO - Side effect management information was provided/discussed including but not limited to: abdominal discomfort, anemia, appetite changes, arthralgia, bowel habit changes, chest pain, diet, electrolyte disturbances, fatigue, headache, hearing impairment, hypersensitivity reaction, infection, kidney toxicity, myalgia, nausea/vomitting, neutropenia, peripheral neuropathy, rash, risk [...] appointment times. YES - Available support groups. NA - The importance of contraception during the [...] - Cancer Wellness Program Pamphlet. YES - [address] [place] [address] Information. YES - Patient services information. YES - pt has My Journey binder at home from previous treatment education - Pt had allergic reaction to taxol last week and treatment was held and pt was admitted to the hospital from our office. Will be changing treatment regimen today. Regimen explained to and pt. Time Spent: 40 minutes REFERRAL (RECOMMENDATION): N/A Blanquita Hargrove RN documented in this encounter [facility] 01-08-2025 Note [facility] 01-08-2025 History of Presen t illness Narrative Images from the original note were not included. PATIENT NAME: Jatin Koch II CLINIC NO.: [id number] ATTENDING PHYSICIAN: Rasheed Perez MD DATE OF SERVICE: 01/08/[address] Chip Carbajal [address] [place] [address] thank you for referring Jatin Koch II for an opinion regarding Lung cancer. Some of the elements of this note have been copied from my previous progress note dated 01/02/25 . All the information has been reviewed carefully. CHIEF COMPLAINT: Lung cancer HPI: Jatin Koch II is a 63 year old year old male with PMH of HTN referred to us for lung cancer. CT chest : PET scan: C/o cough and lost 30lbs. Quit smoking in 2017. Smoked 1 pk/day for 40yrs. 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 C/o hemoptysis. C/o mild dysphagia. 11/17/24: - Recently had a pacemaker implanted on 11/09/24 due to complete heart block, which was an emergency procedure. He reports feeling 100% better since the pacemaker was placed. - Scheduled for bronchoscopy on 11/20/24. - Doing well. - Cough is better. 12/26/24: - Hospitalized from 12/15-12/22/24 with pneumonia - CT C/A/P at [facility] in December 2024 is negative for mets. - C/o right sided chest pain - He will finish antibiotics on Wednesday. 01/02/25: - C/o chills. - Started radiation today - Cycle 1 chemo today. - C/o loss of appetite and weight loss. 01/08/25: - Hospitalized last week with PNA. Treated with Abx. - CT chest at [facility] on 01/02/25 showed T5 lytic lesin. Cannot exclude malignancy - On PO abx - No other complaints. Current Outpatient Medications Medication Sig clindamycin (CLEOCIN) 300 mg capsule cefdinir (OMNICEF) 300 mg capsule esomeprazole (NEXIUM) 40 mg capsule Take 40 mg by mouth. diphenhydrAMINE (BENADRYL) 25 mg capsule Take 25 mg by mouth. reishi mushroom extract 188 mg cap Take by mouth. megestrol (MEGACE) 400 mg/10 mL (40 mg/mL) suspension Take 10 mL by mouth two times a day. sennosides-docusate sodium (SENNA PLUS) 8.6-50 mg capsule Take 1 capsule by mouth two times a day as needed for constipation. prochlorperazine (COMPAZINE) 10 mg tablet Take 1 tablet by mouth every 6 hours as needed. ondansetron (ZOFRAN) 8 mg tablet Take 1 tablet by mouth every 8 hours as needed for nausea/vomiting. HERBAL DRUGS MISC 1 capsule once daily. Moringa/Soursop OTC PRODUCT THC 10mg am and 5mg with lunch and supper - appetite, pain, energy albuterol HFA (PROVENTIL HFA, VENTOLIN HFA) 90 [...] Take 25 mg by mouth once daily. No current facility-administered medications for this visit. [...] : Deferred LABS: Glucose (mg/dL) Date Value 01/02/2025 104 Potassium (mmol/L) Date Value 01/02/2025 3.6 Sodium (mmol/L) Date Value 01/02/2025 134 Chloride (mmol/L) Date Value 01/02/2025 100 CO2 (mmol/L) Date Value 01/02/2025 22 Creatinine (mg/dL) Date Value 01/02/2025 0.77 BUN (mg/dL) Date Value 01/02/2025 9 Anion Gap (mmol/L) Date Value 01/02/2025 12 Calcium, Total (mg/dL) Date Value 01/02/2025 9.6 Protein, Total (g/dL) Date Value 01/02/2025 7.2 Albumin (g/dL) Date Value 01/02/2025 3.6 Bilirubin, Total (mg/dL) Date Value 01/02/2025 0.3 Alkaline Phosphatase (U/L) Date Value 01/02/2025 75 AST (U/L) Date Value 01/02/2025 12 ALT (U/L) Date Value 01/02/2025 12 WBC Date Value Ref Range Status 01/08/2025 15.86 (H) 3.70 - 11.00 k/uL Final RBC Date Value Ref Range Status 01/08/2025 3.91 (L) 4.20 - 6.00 m/uL Final Hemoglobin Date Value Ref Range Status 01/08/2025 10.5 (L) 13.0 - 17.0 g/dL Final Hematocrit Date Value Ref Range Status 01/08/2025 33.0 (L) 39.0 - 51.0 % Final MCV Date Value Ref Range Status 01/08/2025 84.4 80.0 - 100.0 fL Final MCH Date Value Ref Range Status 01/08/2025 26.9 26.0 - 34.0 pg Final MCHC Date Value Ref Range Status 01/08/2025 31.8 30.5 - 36.0 g/dL Final RDW-CV Date Value Ref Range Status 01/08/2025 14.8 11.5 - 15.0 % Final Platelet Count Date Value Ref Range Status 01/08/2025 315 150 - 400 k/uL Final MPV Date Value Ref Range Status 01/08/2025 9.0 9.0 - 12.7 fL Final Abs Neut Date Value Ref Range Status 01/08/2025 12.61 (H) 1.45 - 7.50 k/uL Final Lymphocytes % Date Value Ref Range Status 01/08/2025 11.5 % Final Abs Lymph Date Value Ref Range Status 01/08/2025 1.83 1.00 - 4.00 k/uL Final Monocytes % Date Value Ref Range Status 01/08/2025 4.7 % Final Abs [facility] Date Value Ref Range Status 01/08/2025 0.74 <0.87 k/uL Final Abs Eosin Date Value Ref Range Status 01/08/2025 0.48 (H) <0.46 k/uL Final Basophils % Date Value Ref Range Status 01/08/2025 0.3 % Final Abs Baso Date Value Ref Range Status 01/08/2025 0.05 <0.11 k/uL Final PATH: IMAGING: PET scan [...] chemoradiation therapy followed by maintenance durvalumab - MRI brain on 11/02/24 is negative for mets. - Had a pacemaker implanted on 11/09/24 due to complete heart block. Hospitalized from 12/15-12/22/24 with pneumonia - CT C/A/P at [facility] in December 2024 is negative for mets - Right lung, bronchus intermedius, endobronchial biopsy: Squamous cell carcinoma. PD-L1 TPS 0%. - Due for cycle 1 D1 weekly carbo taxol on 01/02/25. Pt developed infusion reaction after starting Taxol infusion. - Developed sweating, hypotension, lethargy, tachycardia etc. Pt was sent to hospital. PLAN: 1. Malignant neoplasm of lower lobe of right lung (HCC) - ICD9: 162.5, ICD10: C34.31 - Doing well - Proceed with C1 D1 cisplatin etoposide - Side effects explained in detail including nausea, vomiting, myelosuppression, ototoxicity, nephrotoxicity etc. - Continue radiation - CT chest at [facility] on 01/02/25 showed T5 lytic lesion. Cannot exclude malignancy. Monitor for now. - Blood work today is unremarkable - All his questions answered in detail. - F/u in [address] Chip Gary [place] [address] thank you for allowing me to participate in [facility] [place], if there are any questions or concerns please do not hesitate to contact me at the number below. I spent a total of 30 minutes on the date of the service which included preparing to see the patient, [id number] patient care, completing clinical documentation, obtaining and/or reviewing separately obtained history, performing a medically appropriate examination, counseling and educating the patient/family/caregiver, ordering medications, tests, or procedures, communicating with other HCPs (not separately reported), independently interpreting results (not separately reported), communicating results to the patient/family/caregiver, and care coordination (not separately reported). Rasheed Perez MD. Hematology/Medical Oncology [facility] [place] [id number] [phone] CC: documented in this encounter [facility] 01-08-2025 Telephone encounter Note Voicemail received from pt's stating she has notification on her phone that pt has an appointment for today as well as tomorrow. asking on message if pt needs to come in today or not. Call placed to pt's 3 times and detailed messages left regarding pt's appointments today and tomorrow. Blanquita Hargrove RN [facility] Work Phone: 01-08-2025 Miscellaneous Notes Voicemail received from pt's stating she has notification on her phone that pt has an appointment for today as well as tomorrow. asking on message if pt needs to come in today or not. Call placed to pt's 3 times and detailed messages left regarding pt's appointments today and tomorrow. Blanquita Hargrove RN documented in this encounter [facility] 01-05-2025 Progress note Note Date/Time January 05, 2025 11:46am [facility] [address] [place] [address] Hospitalist Progress Note Signed Patient: Jatin Koch II MR#: [id number] : 1960 Acct:[id number] Age/Sex: 64 / M Adm Date: 5 Loc: Room: [address] [place] [address] Type: ADM IN Attending Dr: Norah Whittaker MD Copies to: ~ Date of Service: 01/05/2025 Subjective Subjective Narrative: Patient has been seen and examined today, Yesterday he developed chills and rigors, at that time he was afebrile, however later he spiked fevers Today he is feeling better, denies any fevers, shortness of breath and cough improved, still stronger, denies any abdominal pain Physical exam: General -awake, alert, oriented ?3, not in respiratory distress Cardiovascular -S1 with S2, no murmurs, no rubs, no gallops Pulmonary -diminished breath sounds bilaterally Gastrointestinal - abdomen is soft, nondistended, nontender, bowel sounds positive, there is no rigidity, no rebound Extremities -no edema Neurological -no focal neurological dysfunction noted Exam Physical Exam Vital Signs: Temp Pulse Resp BP Pulse Ox O2 Del Method 36.8 C 98 18 130/62 98 Room Air 01/05/25 08:17 01/05/25 08:17 01/05/25 08:17 01/05/25 08:17 01/05/25 08:17 01/05/25 08:17 Objective Lab Results 01/05/25 04:38 01/05/25 04:38 Microbiology Results Microbiology 01/02/25 17:50 Blood - Left Hand Blood Culture - Preliminary No Growth 2 Days 01/02/25 17:58 Blood - Right Wrist Blood Culture - Preliminary No Growth 2 Days Meds Allergies and Active Meds Allergies codeine Allergy (Verified 01/02/25 13:47) Chills sulfamethoxazole (From Bactrim) Adverse Reaction (Verified 01/02/25 13:47) Unable to urinate trimethoprim (From Bactrim) Adverse Reaction (Verified 01/02/25 13:47) Unable to urinate [place] pollen Allergy (Uncoded 08/11/18 15:46) Eyes swell shut;sneezing Active Meds: Active Medications Generic Name Dose Route Start Last Admin Trade Name Freq PRN Reason Stop Dose Admin Acetaminophen 650 mg 01/02/25 17:36 01/04/25 17:46 Acetaminophen 325 Mg Tablet PO 01/02/26 17:35 650 mg Q4H PRN Administration Pain Scale 1 - 5 Albuterol 2.5 mg 01/02/25 17:36 Albuterol Neb 2.5 Mg/3 Ml Vial.Neb INHALATION 01/02/26 17:35 Q2H PRN Shortness Of Breath Docusate Sodium 200 mg 01/02/25 17:36 Docusate 100 Mg Capsule PO 01/02/26 17:35 BID PRN Constipation Enoxaparin Sodium 40 mg 01/03/25 10:00 01/05/25 09:37 Enoxaparin 40 Mg/0.4 Ml Syringe SUBCUT 01/03/26 09:59 Not Given DAILY@1000 IAN Guaifenesin 1,200 mg 01/02/25 21:00 01/05/25 09:37 Guaifenesin 600 Mg Tab.Er.12h PO 01/02/26 20:59 1,200 mg BID IAN Administration Hydralazine HCl 10 mg 01/02/25 17:36 Hydralazine 20 Mg/Ml Vial IV-PUSH 01/02/26 17:35 Q4H PRN if SBP > 185 Piperacillin Sod/Tazobactam Sod 3.375 gm in 100 mls @ 25 mls/hr 01/02/25 22:00 01/05/25 05:35 Zosyn IV 25 mls/hr Q8H IAN Administration Sodium Chloride 0 ml 01/02/25 13:46 01/05/25 05:36 Sodium Chloride 0.9 % 10 Ml Syringe IV-PUSH 01/02/26 13:45 10 ml PRN PRN Administration Flush A&P - Hospitalist Assessment/Plan (1) Pneumonia: Plan 1. Pneumonia, suspect bacterial Recently hospitalized at [facility], discharged with Augmentin and doxycycline Unable to get sputum cultures, nasal swab positive for MSSA, linezolid was discontinued Due to recent hospitalization broad-spectrum antibiotics, with Zosyn Hypotension improved Unlikely allergic reaction due to chemotherapy Leukocytosis improving, chest x-ray without significant findings, fevers improved 2. Recently diagnosed lung cancer, on chemotherapy, first cycle today only underwent 5 to 10 minutes of infusion 3. Hypomagnesemia replacement 4. DVT prophylaxis Lovenox, anemia noted but no active signs of bleeding Documented By: Norah Whittaker MD 01/05/25 1144 Signed By: <Electronically signed by Norah Whittaker MD> 01/05/25 1146 [facility] Work Phone: 1(984) 316-529307-25-2025 Progress note Author Norah Whittaker [facility] Note Date/Time January 05, 2025 11:4 4am [facility] [address] [place] [address] Hospitalist Progress Note Signed Patient: Jatin Koch II MR#: [id number] : 1960 Acct:[id number] Age/Sex: 64 / M Adm Date: 5 Loc: Room: [address] [place] [address] Type: ADM IN Attending Dr: Norah Whittaker MD Copies to: ~ Date of Service: 01/04/2025 Subjective Subjective Narrative: Patient has been seen and examined today, today he is not feeling that well, he complains of chills and rigors, however I measured the temperature and he was afebrile, Physical exam: General -awake, alert, oriented ?3, today he appears to be weaker, uncomfortable Cardiovascular -S1 with S2, no murmurs, no rubs, no gallops Pulmonary -diminished breath sounds bilaterally Gastrointestinal - abdomen is soft, nondistended, nontender, bowel sounds positive, there is no rigidity, no rebound Extremities -no edema Neurological -no focal neurological dysfunction noted Exam Physical Exam Vital Signs: Temp Pulse Resp BP Pulse Ox O2 Del Method 36.8 C 97 18 137/65 99 Room Air 01/04/25 12:26 01/04/25 12:26 01/04/25 12:26 01/04/25 12:01/04/25 12:01/04/25 12:26 Objective Lab Results 01/05/25 04:38 01/05/25 04:38 Microbiology Results Microbiology 01/03/25 18:35 Nasal Nasal Screen MRSA/MSSA - Final 01/02/25 17:50 Blood - Left Hand Blood Culture - Preliminary No Growth 1 Day 01/02/25 17:58 Blood - Right Wrist Blood Culture - Preliminary No Growth 1 Day Meds Allergies and Active Meds Allergies codeine Allergy (Verified 01/02/25 13:47) Chills sulfamethoxazole (From Bactrim) Adverse Reaction (Verified 01/02/25 13:47) Unable to urinate trimethoprim (From Bactrim) Adverse Reaction (Verified 01/02/25 13:47) Unable to urinate [place] pollen Allergy (Uncoded 08/11/18 15:46) Eyes swell shut;sneezing Active Meds: Active Medications Generic Name Dose Route Start Last Admin Trade Name Freq PRN Reason Stop Dose Admin Acetaminophen 650 mg 01/02/25 17:36 Acetaminophen 325 Mg Tablet PO 01/02/26 17:35 Q4H PRN Pain Scale 1 - 5 Albuterol 2.5 mg 01/02/25 17:36 Albuterol Neb 2.5 Mg/3 Ml Vial.Neb INHALATION 01/02/26 17:35 Q2H PRN Shortness Of Breath Docusate Sodium 200 mg 01/02/25 17:36 Docusate 100 Mg Capsule PO 01/02/26 17:35 BID PRN Constipation Enoxaparin Sodium 40 mg 01/03/25 10:00 01/04/25 09:08 Enoxaparin 40 Mg/0.4 Ml Syringe SUBCUT 01/03/26 09:59 Not Given DAILY@1000 IAN Guaifenesin 1,200 mg 01/02/25 21:00 01/04/25 09:08 Guaifenesin 600 Mg Tab.Er.12h PO 01/02/26 20:59 1,200 mg BID IAN Administration Hydralazine HCl 10 mg 01/02/25 17:36 Hydralazine 20 Mg/Ml Vial IV-PUSH 01/02/26 17:35 Q4H PRN if SBP > 185 Piperacillin Sod/Tazobactam Sod 3.375 gm in 100 mls @ 25 mls/hr 01/02/25 22:00 01/04/25 13:06 Zosyn IV 25 mls/hr Q8H IAN Administration Sodium Chloride 0 ml 01/02/25 13:46 01/03/25 20:49 Sodium Chloride 0.9 % 10 Ml Syringe IV-PUSH 01/02/26 13:45 10 ml PRN PRN Administration Flush A&P - Hospitalist Assessment/Plan (1) Pneumonia: Plan 1. Pneumonia, suspect bacterial Recently hospitalized at [facility], discharged with Augmentin and doxycycline Unable to get sputum cultures Due to recent hospitalization broad-spectrum antibiotics, with Zosyn and linezolid, linezolid discontinued due to MRSA swab negative Hypotension improved Unlikely allergic reaction due to chemotherapy Leukocytosis slightly worse, however remains afebrile, chest x-ray pending 2. Recently diagnosed lung cancer, on chemotherapy, first cycle today only underwent 5 to 10 minutes of infusion 3. Hypomagnesemia replacement 4. DVT prophylaxis Lovenox, anemia noted but no active signs of bleeding Documented By: Norah Whittaker MD 01/04/25 1416 Signed By: <Electronically signed by Norah Whittaker MD> 01/05/25 1144 [facility] Work Phone: 1(471) 343-836807-25-2025 Telephone encounter Note* Telephone Encounter - Carolina Perdue - 01/05/2025 1:42 PM EDT Patient's appointment to start for Wednesday has been adjusted and day 2-5 added around his XRT times.Unable to assign referral possibly because the start date is after the scheduled date on infusion? Nurse Ileana @ [facility] notified of new time arrival for Wednesday. Also added education for Blanquita on Wednesday as well. Carolina Perdue [facility]07-25-2025 Miscellaneous Notes* Telephone Encounter - Carolina Perdue - 01/05/2025 1:42 PM EDT Patient's appointment to start for Wednesday has been adjusted and day 2-5 added around his XRT times.Unable to assign referral possibly because the start date is after the scheduled date on infusion? Nurse Ileana @ [facility] notified of new time arrival for Wednesday. Also added education for Blanquita on Wednesday as well. Carolina Perdue * Telephone Encounter - Eloy Lucas RPh - 01/05/2025 1:28 PM EDT Added Magnesium 1g before and after. Please review. Thanks, Eloy Lucas RPh * Telephone Encounter - Rasheed Perez MD - 01/05/2025 1:22 PM EDT Can we add magnesium also to cisplatin infusion ? Thank you * Telephone Encounter - Eloy Lucas RPh - 01/05/2025 1:[address] Perez: Plan entered - please review for accuracy. We would have to start this regimen jefferson Wednesday however, since the etop is daily x5. PSS: please attach new referral and schedule 4 hour tx d1 then 2 hour tx d2-5. Thanks, Eloy Lucas RPh * Telephone Encounter - Rasheed Perez MD - 01/05/2025 12:35 PM EDT Can we do cisplatin 50mg/m2 day 1,8,29,36 and etoposide 50mg/m2 day 1-5 and 29- 33 ? Thank you * Telephone Encounter - Blanquita Hargrove RN - 01/05/2025 12:27 PM EDT Tentative plan is for pt to be discharged tomorrow from [facility]. Pt is scheduled for radiation new start on Wednesday at 1130. Pt did not receive his chemo treatment on Wednesday due to an allergic reaction to taxol 9 mg in. What will the plan be for concurrent chemotherapy moving forward? Should he start chemo on Wednesday when he is here for radiation? Please advise Blanquita Hargrove RN * Telephone Encounter - Blanquita Hargrove RN - 01/05/2025 12:12 PM EDT Call placed to karina Loo's bedside nurse who states pt was admitted with near syncope. Currently on IV zosyn, awaiting sputum culture to come back. Blood cultures were negative. Pt's WBC is 12.6, hgb 8.8, plt 251. Pt will most likely be discharged home tomorrow. Blanquita Hargrove, RN [facility] Tele[facility] encounter Note * Telephone Encounter - Eloy Lucas RPh - 01/05/2025 1:28 PM EDT Added Magnesium 1g before and after. Please review. Thanks, Eloy Lucas RPh [facility]07-25-2025 Telephone encounter Note* Telephone Encounter - Rasheed Perez MD - 01/05/2025 1:22 PM EDT Can we add magnesium also to cisplatin infusion ? Thank you [facility]07-25-2025 Telephone encounter Note* Telephone Encounter - Eloy Lucas RP - 01/05/2025 1:[address] Perez: Plan entered - please review for accuracy. We would have to start this regimen jefferson Wednesday however, since the etop is daily x5. PSS: please attach new referral and schedule 4 hour tx d1 then 2 hour tx d2-5. Thanks, Eloy Lucas RPh [facility]07-25-2025 Telephone encounter Note* Telephone Encounter - Rasheed Perez MD - 01/05/2025 12:35 PM EDT Can we do cisplatin 50mg/m2 day 1,8,29,36 and etoposide 50mg/m2 day 1-5 and 29- 33 ? Thank you [facility]07-25-2025 Telephone encounter Note* Telephone Encounter - Blanquita Hargrove RN - 01/05/2025 12:27 PM EDT Tentative plan is for pt to be discharged tomorrow from [facility]. Pt is scheduled for radiation new start on Wednesday at 1130. Pt did not receive his chemo treatment on Wednesday due to an allergic reaction to taxol 9 mg in. What will the plan be for concurrent chemotherapy moving forward? Should he start chemo on Wednesday when he is here for radiation? Please advise Blanquita Hargrove RN [facility] Work Phone: 1(891) 608-775907-25-2025 Telephone encounter Note* Telephone Encounter - Blanquita Hargrove RN - 01/05/2025 12:22 PM EDT CYCLE 1/DAY 1 POST TREATMENT CALL Today's date: January 05, 2025 Treatment Regimen: taxol, carbo C1D1 Date: 01/02/25 Pt received 9 mg of dose of taxol and had an allergic reaction. Pt was taken by ambulance from our office to [facility]. Pt did not receive remaining dose of taxol or carboplatin. [facility] still [facility] Blanquita Hargrove RN [facility] Work Phone: 1(110) 529-993307-25-2025 Miscellaneous Notes* Telephone Encounter - Blanquita Hargrove RN - 01/05/2025 12:22 PM EDT CYCLE 1/DAY 1 POST TREATMENT CALL Today's date: January 05, 2025 Treatment Regimen: taxol, carbo C1D1 Date: 01/02/25 Pt received 9 mg of dose of taxol and had an allergic reaction. Pt was taken by ambulance from our office to [facility]. Pt did not receive remaining dose of taxol or carboplatin. Pt [facility]. Blanquita Hargrove RN documented in [facility]25 Telephone encounter Note * Telephone Encounter - Blanquita Hargrove RN - 01/05/2025 12:12 PM EDT Call placed to karina Loo's bedside nurse who states pt was admitted with near syncope. Currently on IV zosyn, awaiting sputum culture to come back. Blood cultures were negative. Pt's WBC is 12.6, hgb 8.8, plt 251. Pt will most likely be discharged home tomorrow. Blanquita Hargrove RN [facility]07-25-20[place] [address] Hospitalist Progress Note Signed Patient: Jatin Koch II MR#: [id number] : 1960 Acct:[id number] Age/Sex: 64 / M Adm Date: 5 Loc: Room: [address] [place] [address] Type: ADM IN Attending Dr: Norah Whittaker MD Copies to: ~ Date of Service: 01/05/2025 Subjective Subjective Narrative: Patient has been seen and examined today, Yesterday he developed chills and rigors, at that time he was afebrile, however later he spiked fevers Today he is feeling better, denies any fevers, shortness of breath and cough improved, still stronger, denies any abdominal pain Physical exam: General -awake, alert, oriented ?3, not in respiratory distress Cardiovascular -S1 with S2, no murmurs, no rubs, no gallops Pulmonary -diminished breath sounds bilaterally Gastrointestinal - abdomen is soft, nondistended, nontender, bowel sounds positive, there is no rigidity, no rebound Extremities -no edema Neurological -no focal neurological dysfunction noted Exam Physical Exam Vital Signs: Temp Pulse Resp BP Pulse Ox O2 Del Method 36.8 C 98 18 130/62 98 Room Air 01/05/25 08:17 01/05/25 08:17 01/05/25 08:17 01/05/25 08:17 01/05/25 08:17 01/05/25 08:17 Objective Lab Results 01/05/25 04:38 01/05/25 04:38 Microbiology Results Microbiology 01/02/25 17:50 Blood - Left Hand Blood Culture - Preliminary No Growth 2 Days 01/02/25 17:58 Blood - Right Wrist Blood Culture - Preliminary No Growth 2 Days Meds Allergies and Active Meds Allergies codeine Allergy (Verified 01/02/25 13:47) Chills sulfamethoxazole (From Bactrim) Adverse Reaction (Verified 01/02/25 13:47) Unable to urinate trimethoprim (From Bactrim) Adverse Reaction (Verified 01/02/25 13:47) Unable to urinate [place] pollen Allergy (Uncoded 08/11/18 15:46) Eyes swell shut;sneezing Active Meds: Active Medications Generic Name Dose Route Start Last Admin Trade Name Freq PRN Reason Stop Dose Admin Acetaminophen 650 mg 01/02/25 17:36 01/04/25 17:46 Acetaminophen 325 Mg Tablet PO 01/02/26 17:35 650 mg Q4H PRN Administration Pain Scale 1 - 5 Albuterol 2.5 mg 01/02/25 17:36 Albuterol Neb 2.5 Mg/3 Ml Vial.Neb INHALATION 01/02/26 17:35 Q2H PRN Shortness Of Breath Docusate Sodium 200 mg 01/02/25 17:36 Docusate 100 Mg Capsule PO 01/02/26 17:35 BID PRN Constipation Enoxaparin Sodium 40 mg 01/03/25 10:00 01/05/25 09:37 Enoxaparin 40 Mg/0.4 Ml Syringe SUBCUT 01/03/26 09:59 Not Given DAILY@1000 IAN Guaifenesin 1,200 mg 01/02/25 21:00 01/05/25 09:37 Guaifenesin 600 Mg Tab.Er.12h PO 01/02/26 20:59 1,200 mg BID IAN Administration Hydralazine HCl 10 mg 01/02/25 17:36 Hydralazine 20 Mg/Ml Vial IV-PUSH 01/02/26 17:35 Q4H PRN if SBP > 185 Piperacillin Sod/Tazobactam Sod 3.375 gm in 100 mls @ 25 mls/hr 01/02/25 22:00 01/05/25 05:35 Zosyn IV 25 mls/hr Q8H IAN Administration Sodium Chloride 0 ml 01/02/25 13:46 01/05/25 05:36 Sodium Chloride 0.9 % 10 Ml Syringe IV-PUSH 01/02/26 13:45 10 ml PRN PRN Administration Flush A&P - Hospitalist Assessment/Plan (1) Pneumonia: Plan 1. Pneumonia, suspect bacterial Recently hospitalized at [facility], discharged with Augmentin and doxycycline Unable to get sputum cultures, nasal swab positive for MSSA, linezolid was discontinued Due to recent hospitalization broad-spectrum antibiotics, with Zosyn Hypotension improved Unlikely allergic reaction due to chemotherapy Leukocytosis improving, chest x-ray without significant findings, fevers improved 2. Recently diagnosed lung cancer, on chemotherapy, first cycle today only underwent 5 to 10 minutes of infusion 3. Hypomagnesemia replacement 4. DVT prophylaxis Lovenox, anemia noted but no active signs of bleeding Documented By: Norah Whittaker MD 01/05/25 1144 Signed By: 01/05/25 1146 [facility]07-25-2025 [place] [address] Hospitalist Progress Note Signed Patient: Jatin Koch II MR#: [id number] : 1960 Acct:[id number] Age/Sex: 64 / M Adm Date: 5 Loc: Room: [address] [place] [address] Type: ADM IN Attending Dr: Norah Whittaker MD Copies to: ~ Date of Service: 01/04/2025 Subjective Subjective Narrative: Patient has been seen and examined today, today he is not feeling that well, he complains of chillsand rigors, however I measured the temperature and he was afebrile, Physical exam: General -awake, alert, oriented ?3, today he appears to be weaker, uncomfortable Cardiovascular -S1 with S2, no murmurs, no rubs, no gallops Pulmonary -diminished breath sounds bilaterally Gastrointestinal - abdomen is soft, nondistended, nontender, bowel sounds positive, there is no rigidity, no rebound Extremities -no edema Neurological -no focal neurological dysfunction noted Exam Physical Exam Vital Signs: Temp Pulse Resp BP Pulse Ox O2 Del Method 36.8 C 97 18 137/65 99 Room Air 01/04/25 12:26 01/04/25 12:26 01/04/25 12:26 01/04/25 12:26 01/04/25 12:26 01/04/25 12:26 Objective Lab Results 01/05/25 04:38 01/05/25 04:38 Microbiology Results Microbiology 01/03/25 18:35 Nasal Nasal Screen MRSA/MSSA - Final 01/02/25 17:50 Blood - Left Hand Blood Culture - Preliminary No Growth 1 Day 01/02/25 17:58 Blood - Right Wrist Blood Culture - Preliminary No Growth 1 Day Meds Allergies and Active Meds Allergies codeine Allergy (Verified 01/02/25 13:47) Chills sulfamethoxazole (From Bactrim) Adverse Reaction (Verified 01/02/25 13:47) Unable to urinate trimethoprim (From Bactrim) Adverse Reaction (Verified 01/02/25 13:47) Unable to urinate [place] pollen Allergy (Uncoded 08/11/18 15:46) Eyes swell shut;sneezing Active Meds: Active Medications Generic Name Dose Route Start Last Admin Trade Name Freq PRN Reason Stop Dose Admin Acetaminophen 650 mg 01/02/25 17:36 Acetaminophen 325 Mg Tablet PO 01/02/26 17:35 Q4H PRN Pain Scale 1 - 5 Albuterol 2.5 mg 01/02/25 17:36 Albuterol Neb 2.5 Mg/3 Ml Vial.Neb INHALATION 01/02/26 17:35 Q2H PRN Shortness Of Breath Docusate Sodium 200 mg 01/02/25 17:36 Docusate 100 Mg Capsule PO 01/02/26 17:35 BID PRN Constipation Enoxaparin Sodium 40 mg 01/03/25 10:00 01/04/25 09:08 Enoxaparin 40 Mg/0.4 Ml Syringe SUBCUT 01/03/26 09:59 Not Given DAILY@1000 IAN Guaifenesin 1,200 mg 01/02/25 21:00 01/04/25 09:08 Guaifenesin 600 Mg Tab.Er.12h PO 01/02/26 20:59 1,200 mg BID IAN Administration Hydralazine HCl 10 mg 01/02/25 17:36 Hydralazine 20 Mg/Ml Vial IV-PUSH 01/02/26 17:35 Q4H PRN if SBP > 185 Piperacillin Sod/Tazobactam Sod 3.375 gm in 100 mls @ 25 mls/hr 01/02/25 22:00 01/04/25 13:06 Zosyn IV 25 mls/hr Q8H IAN Administration Sodium Chloride 0 ml 01/02/25 13:46 01/03/25 20:49 Sodium Chloride 0.9 % 10 Ml Syringe IV-PUSH 01/02/26 13:45 10 ml PRN PRN Administration Flush A&P - Hospitalist Assessment/Plan (1) Pneumonia: Plan 1. Pneumonia, suspect bacterial Recently hospitalized at [facility], discharged with Augmentin and doxycycline Unable to get sputum cultures Due to recent hospitalization broad-spectrum antibiotics, with Zosyn and linezolid, linezolid discontinued due to MRSA swab negative Hypotension improved Unlikely allergic reaction due to chemotherapy Leukocytosis slightly worse, however remains afebrile, chest x-ray pending 2. Recently diagnosed lung cancer, on chemotherapy, first cycle today only underwent 5 to 10 minutes of infusion 3. Hypomagnesemia replacement 4. DVT prophylaxis Lovenox, anemia noted but no active signs of bleeding Documented By: Norah Whittaker MD 01/04/25 1416 Signed By: 01/05/25 1144 [facility]07-24-2025 Telephone encounter Note* Telephone Encounter - Macy Morgan RN - 01/04/2025 11:16 AM EDT was notified of plan. Macy Morgan RN [facility]07-24-2025 Miscellaneous Notes* Telephone Encounter - Macy Morgan RN - 01/04/2025 11:16 AM EDT was notified of plan. Macy Morgan, PRITI * Telephone Encounter - Jazlyn Hyatt RT(R) - 01/04/2025 10:34 AM EDT 1130 OTV for new start on 01/08/25 * Telephone Encounter - Macy Morgan RN - 01/04/2025 10:18 AM EDT Can you please give me time for Wednesday and I will notify pts ? Thank you! Macy Morgan RN * Telephone Encounter - Jazlyn Hyatt RT(R) - 01/04/2025 10:10 AM EDT If pt is d/c today we can arrange a new start time for Wednesday Thanks RT Yonny(R)(T) * Telephone Encounter - Macy Morgan RN - 01/04/2025 9:53 AM EDT Pts spouse called in. They are hopeful that pt will be discharged later today. She is wondering when pt should come in to start radiation? Dr Ghosh- please advise. Macy Morgan RN [facility] Telephone encounter Note * Telephone Encounter - Jazlyn Hyatt RT(R) - 01/04/2025 10:34 AM EDT 1130 OTV for new start on 01/08/25 [facility] Work Phone: 1(146) 519-446707-24-2025 Telephone encounter Note* Telephone Encounter - Macy Morgan RN - 01/04/2025 10:18 AM EDT Can you please give me time for Wednesday and I will notify pts ? Thank you! Macy Morgan, PRITI [facility]07-24-2025 Telephone encounter Note* Telephone Encounter - Jazlyn Hyatt RT(R) - 01/04/2025 10:10 AM EDT If pt is d/c today we can arrange a new start time for Wednesday Thanks RT Yonny(R)(T) [facility]07-24-2025 Telephone encounter Note* Telephone Encounter - Macy Morgan RN - 01/04/2025 9:53 AM EDT Pts spouse called in. They are hopeful that pt will be discharged later today. She is wondering when pt should come in to start radiation? Dr Ghosh- please advise. Macy Morgan RN [facility]07-23-2025 Telephone encounter Note* Telephone Encounter - Victoria Pakc - 01/03/2025 8:13 AM EDT Patient is admitted on 4P at [facility]. He was sent from here by [facility] yesterday. Records scanned. [facility]07-23-2025 Miscellaneous Notes* Telephone Encounter - Victoria Pack - 01/03/2025 8:13 AM EDT Patient is admitted on 4P at [facility]. He was sent from here by squad yesterday. Records scanned. [facility] Evaluation note* Diagnosis Onset Date Resolution Status Admit Date History of lung cancer acute Ju ly 2024 5:55pm Pneumonia acute January 02 5:55pm Syncope acute January 02 5:55pm [facility] Work Phone: 1(143) 866-397507-22-2025 Evaluation note* Diagnosis Onset Date Resolution Status Admit Date History of lung cancer resolved Ju ly 2024 5:55pm Pneumonia resolved January 02 5:55pm Syncope resolved January 02 5:55pm Lung cancer acute January 15, 2 025 12:25pm Pneumonia acute January 15 12:25pm [facility] Work Phone: 1(630) 487-243007-22-2025 Evaluation note* Diagnosis Onset Date Resolution Status Admit Date History of lung cancer resolved Ju ly 2024 5:55pm Pneumonia resolved January 02 5:55pm Syncope resolved January 02 5:55pm Anxiety acute January 15 12:25pm Cancer associated pain acute Au 2024 12:25pm Lung abscess acute January 15, 2025 12:25pm Lung cancer acute January 15, 2 025 12:25pm Pneumonia acute January 15 12:25pm [facility] Work Phone: 1(264) 478-744807-22-2025 Radiology Diagnostic study [facility] [place] [address] [place] [address] CT Scan Report Signed Patient: Jatin Koch II MR#: [id number] : 1960 Acct:[id number] Age/Sex: 64 / M ADM Date: 5 Loc: Room: [address] [place] [address] Type: ADM IN Attending Dr: Norah Whittaker MD Copies to: Norah Whittaker MD~ Ordering Provider: Norah Whittaker MD Date of Service: 01/02/25 CT/CT angio chest PE protocol: sob CTA Chest with PE protocol TECHNIQUE: Axial imaging with 2-D and 3-D reconstruction. 90cc of Isovue-[address] exam was performed using one or more the following dose reduction techniques: Automated exposure control, adjustment of the MA and/or Kvaccording to patient size, or use of the iterative reconstruction technique. History: Treatment for lung cancer. Chemotherapy today. Elevated d-dimer COMPARISON: None THYROID: Unremarkable TRACHEA AND BRONCHI: Patent ESOPHAGUS: Unremarkable. HEART: Within normal limits PERICARDIAL EFFUSION: None CORONARY ARTERY CALCIFICATION: None MEDIASTINUM: Large posterior subcarinal mediastinal mass identified. The descending thoracic aorta and left atrium and extends into the right lung base. The postobstructive changes likely. PULMONARY JERE: No hilar mass or adenopathy is seen. THORACIC AORTA Unremarkable PULMONARY EMBOLUS: None LUNG NODULE None LUNGS: Tree-in-bud nodularity of the right middle lobe present. PLEURAL EFFUSION: None PNEUMOTHORAX: No pneumothorax seen. CHEST WALL: No abnormality AXILLA: Unremarkable BONY STRUCTURES thoracic spondylosis. 9 mm lytic lesion adjacent to the T5 inferior endplate. UPPER ABDOMEN: Images of the upper abdomen are noncontributory. CT/CT angio chest PE protocol IMPRESSION: No acute pulmonary embolus. Large subcarinal mediastinal mass extending into the right lung base. Likely postobstructive changes of the rightlower lobe. Tree-in-bud appearance of the right middle lobe suggesting infectious or inflammatory etiology. T5 lytic lesion. Malignancy cannot be e xcluded. Degenerative change. Impression dictated by: Kirk Mccann M.D. 01/02/2025 7:42 PM Dictation Location: [place] [address] Transcribed By: [facility] 01/02/251941 Dictated By: Kirk Mccann DO 01/02/251935 Signed By: 01/02/251941 [facility]07-22-2025 History and physical note Author Norah Whittaker [facility] Note Date/Time January 02, 2025 5:39 pm [facility] [address] [place] [address] Hospitalist H&P Signed Patient: Jatin Koch II MR#: [id number] : 1960 Acct:[id number] Age/Sex: 64 / M Adm Date: 5 Loc: ER Room: Type: [facility] ER Attending Dr: Copies to: MINERVA Dykes CNP, MD~ HPI DATE OF EXAMINATION: 01/02/25 CHIEF COMPLAINT: Dizziness HISTORY OF PRESENT ILLNESS: 64 years old male who was diagnosed with a right lower lobe lung cancer, [facility], presenting with worsening of shortness of breath and presyncopal episode while getting chemotherapy. Today she went for first chemotherapy infusion and into treatment 5 to 10 minutes he felt short of breath, dizzy, confused. He thinks that he did not lose consciousness. He was transferred to emergency room for further evaluation where he was noted to be hypotensive, saturating 96% on room air. Per patient he has been having fevers on and off for the last couple of days up to 102.5, associated with some rigors and chills and sweating last night, he complained of worsening of cough with no sputum production. Denied any chest pain. Denied any sore throat any headaches. Denies any abdominal pain. No nausea, he did have some episode of nonbloody vomitus couple days ago, but denied any diarrhea, denied any dysuria urgency frequency, denied any skin lesions, denies any central lines 10 days ago he was admitted at [facility] where he was treated for pneumonia and was discharged on doxycycline and Augmentin. We will try to get medical records. 10 systems are reviewed and are negative apart as mentioned H&P General -patient is awake alert oriented ?3, lying in flat position, does not appear to be in respiratory distress, however appears to be weak and fatigued, pale HEENT -normal oropharyngeal mucosa without any ulcers or exudates Cardiovascular -S1 plus S2, with regular rate, systolic murmur Pulmonary -breath at the bases with diminished breath sounds on the right Gastrointestinal -abdomen is soft, nondistended, nontender, bowel sounds positive, no rigidity, no rebound Musculoskeletal -no joint swelling Neurological -no focal Skin -no significant ulcers, no rash noted Extremities - no edema in bilateral lower extremities noted Psychiatry - appropriate affect Laboratory work up, imaging studies reviewed EKG personally reviewed by me paced ventricle with underlying sinus rhythm Previous records in the computer system reviewed Chest x-ray new posterior right basilar region of consolidation with atelectasisor small possible effusions [facility] Medical History (Updated 01/02/25 @ 17:38 by Norah Whittaker MD) Pneumonia Lung cancer Seasonal allergies Problem List clean-up per request of Phys. [facility] Skin cancer Problem List clean-up per request of Phys. [facility] Gout Problem List clean-up per request of Phys. [facility] Back pain Problem List clean-up per request of Phys. [facility] Arthritis Problem List clean-up per request of Phys. [facility] BPH (benign prostatic hyperplasia) Problem List clean-up per request of Phys[facility] Surgical History History of carpal tunnel release of both wrists Problem List clean-up per request of Phys. [facility] History of cystoscopy Problem List clean-up per request of [facility] Family History Sister Kidney disease Father Hypertension Mother Arthritis Social History Smoking Status: Former smoker Tobacco Type: cigarettes Substance Use Type: None Social History Comments: son lives with them Meds Medications and Allergies Allergies codeine Allergy (Verified 01/02/25 13:47) Chills sulfamethoxazole (From Bactrim) Adverse Reaction (Verified 01/02/25 13:47) Unable to urinate trimethoprim (From Bactrim) Adverse Reaction (Verified 01/02/25 13:47) Unable to urinate [place] pollen Allergy (Uncoded 08/11/18 15:46) Eyes swell shut;sneezing Home Medications fluticasone propionate 50 mcg/actuation nasal spray,suspension (Flonase Allergy Relief) 1 spry intranasal DAILY PRN Allergy Symptoms 12/14/17 [History Confirmed 01/02/25] multivitamin 1 tab PO DAILY 05/17/19 [History Confirmed 01/02/25] metoprolol succinate 50 mg tablet,extended release 24 hr 25 mg PO QHS 09/08/24 [History Confirmed 01/02/25] benzonatate 100 mg capsule 100 mg PO TID PRN cough 01/02/25 [History Confirmed 01/02/25] diphenhydramine HCl 25 mg capsule (Allergy (diphenhydramine)) 25 mg PO QHS 01/02/25 [History Confirmed 01/02/25] Exam Physical Exam Vital Signs: Temp Pulse Resp BP Pulse Ox O2 Del Method 36.6 C 79 18 103/57 L 95 Room Air 01/02/25 13:48 01/02/25 15:56 01/02/25 15:56 01/02/25 15:56 01/02/25 15:56 01/02/25 15:56 Results - Hospitalist H&P Lab Results Labs: Laboratory Last Values Corrected WBC 15.5 X10E3/uL (4.1-10.5) H 01/02/25 14:20 Uncorrected WBC Count 15.5 x10E3/uL (4.1-10.5) H 01/02/25 14:20 RBC 3.83 x10E6/uL (3.90-5.60) L 01/02/25 14:20 Hgb 10.3 g/dL (13.0-17.0) L 01/02/25 14:20 Hct 32.0 % (38.8-50.0) L 01/02/25 14:20 MCV 83.6 fl (83.5-101) 01/02/25 14:20 MCH 26.8 pg (27.5-35.2) L 01/02/25 14:20 MCHC 32.0 g/dL (32.5-35.6) L 01/02/25 14:20 RDW 15.7 % (12.0-14.8) H 01/02/25 14:20 Plt Count 249 x10E3/uL (150-450) 01/02/25 14:20 MPV 7.9 fl (6.6-10.1) 01/02/25 14:20 Neut % (Auto) 93.9 % (.) 01/02/25 14:20 Lymph % (Auto) 2.3 % (.) 01/02/25 14:20 [facility] [place] [facility] % (Auto) 2.4 % (.) 01/02/25 14:20 Eos % (Auto) 1.0 % (.) 01/02/25 14:20 Baso % (Auto) 0.4 % (.) 01/02/25 14:20 Nucleat RBC Rel Count 0.0 /100 WBC (0-0.5) 01/02/25 14:20 Neut # (Auto) 14.5 x10E3/uL (1.8-7.7) H 01/02/25 14:20 Lymph # (Auto) 0.4 x10E3/uL (1.00-4.8) L 01/02/25 14:20 [facility] [place] [facility] # (Auto) 0.4 x10E3/uL (0.0-0.8) 01/02/25 14:20 Eos # (Auto) 0.1 x10E3/uL (0.0-0.45) 01/02/25 14:20 Baso # (Auto) 0.1 x10E3/uL (0.0-0.2) 01/02/25 14:20 Monocyte Dist Width 24.21 % (0.00-20.00) H 01/02/25 14:20 PT 17.1 Seconds (9.0-12.9) H 01/02/25 14:20 INR 1.5 01/02/25 14:20 APTT 26.1 Seconds (25.1-36.5) 01/02/25 14:20 D-Dimer Quant (PE/DVT) 1250 ng/mL (0-243) H 01/02/25 14:20 PHA Creatinine Clear 99.34 01/02/25 14:20 Sodium 134 mmol/L (136-145) L 01/02/25 14:20 Potassium 3.7 mmol/L (3.5-5.1) 01/02/25 14:20 Chloride 107 mmol/L (98-107) 01/02/25 14:20 Carbon Dioxide 19.4 mmol/L (21.0-31.0) L 01/02/25 14:20 Anion Gap 11.3 mEq/L (6.0-15.0) 01/02/25 14:20 BUN 12 mg/dL (7-25) 01/02/25 14:20 Creatinine 0.79 mg/dL (0.70-1.30) 01/02/25 14:20 Est GFR (CKD-EPI) > 60.0 mL/Min 01/02/25 14:20 Glucose 107 mg/dL (70-100) H 01/02/25 14:20 Calcium 8.3 mg/dL (8.6-10.3) L 01/02/25 14:20 Magnesium 1.5 mg/dL (1.9-2.7) L 01/02/25 14:20 Total Bilirubin 0.6 mg/dl (0.3-1.0) 01/02/25 14:20 AST 13 U/L (13-39) 01/02/25 14:20 ALT 9 U/L (7-52) 01/02/25 14:20 Alkaline Phosphatase 59 U/L (34-104) 01/02/25 14:20 Troponin I High Sens 6 ng/L (0-20) 01/02/25 14:20 B-Natriuretic Peptide 44.0 pg/mL (5-100) 01/02/25 14:20 Total Protein 6.0 gm/dL (6.4-8.9) L 01/02/25 14:20 Albumin 3.0 gm/dL (3.5-5.7) L 01/02/25 14:20 Globulin 3.0 gm/dL 01/02/25 14:20 Albumin/Globulin Ratio 1.0 01/02/25 14:20 Assessment & Plan Assessment/Plan (1) Pneumonia: Plan 1. Pneumonia, suspect bacterial Recently hospitalized at [facility], discharged with Augmentin and doxycycline For now we will try to obtain sputum cultures, because of rigors/chills obtain blood cultures to rule out bacteremia Due to recent hospitalization broad-spectrum antibiotics Due to hypotension start hydration Unlikely allergic reaction due to chemotherapy We will get CTA due to significantly elevated D-dimers 2. Recently diagnosed lung cancer, on chemotherapy, first cycle today only underwent 5 to 10 minutes of infusion 3. Hypomagnesemia replacement 4. DVT prophylaxis Lovenox, anemia noted but no active signs of bleeding IP vs OBS Justification Based on differential dx, clinical care plan, and risk of adverse events, if untreated, in my clinical judgement this patient requires an acute care setting as: INPATIENT because of an expectation of an over 2 midnight stay. Estimated length of stay (# of days): 3 Documented By: Norah Whittaker MD 01/02/251728 Signed By: <Electronically signed by Norah Whittaker MD> 01/02/25 173 [facility] Work Phone: 1(795) 678-413807-22-2025 [place] [address] Hospitalist H&P Signed Patient: Jatin Koch II MR#: [id number] : 1960 Acct:[id number] Age/Sex: 64 / M Adm Date: 5 Loc: ER Room: Type: [facility] ER Attending Dr: Copies to: MINERVA Dykesab TRUCK DRIVER FLATBED Norah Whittaker MD~ HPI DATE OF EXAMINATION: 01/02/25 CHIEF COMPLAINT: Dizziness HISTORY OF PRESENT ILLNESS: 64 years old male who was diagnosed with a right lower lobe lung cancer, followswith [facility], presenting with worsening of shortness of breath and presyncopal episode while getting chemotherapy. Today she went for first chemotherapy infusion and into treatment 5 to 10 minutes he felt shortof breath, dizzy, confused. He thinks that he did not lose consciousness. He was transferred to emergency room for further evaluation where he was noted to be hypotensive, saturating 96% on room air.Per patient he has been having fevers on and off for the last couple of days up to 102.5, associated with some rigors and chills and sweating last night, he complained of worsening of cough with no sp utum production. Denied any chest pain. Denied any sore throat any headaches. Denies any abdominal pain. No nausea, he did have some episode of nonbloody vomitus couple days ago, but denied any diarrhea, denied any dysuria urgency frequency, denied any skin lesions, denies any central lines 10 days ago he was admitted at [facility] where he was treated for pneumonia and was discharged on doxycycline and Augmentin. We will try to get medical records. 10 systems are reviewed and are negative apart as mentioned H&P General -patient is awake alert oriented ?3, lying in flat position, does not appear to be in respiratory distress, however appears to be weak and fatigued, pale HEENT -normal oropharyngeal mucosa without any ulcers or exudates Cardiovascular -S1 plus S2, with regular rate, systolic murmur Pulmonary -breath at the bases with diminished breath sounds on the right Gastrointestinal -abdomen is soft, nondistended, nontender, bowel sounds positive, no rigidity, no rebound Musculoskeletal -no joint swelling Neurological -no focal Skin -no significant ulcers, no rash noted Extremities - no edema in bilateral lower extremities noted Psychiatry - appropriate affect Laboratory work up, imaging studies reviewed EKG personally reviewed by me paced ventricle with underlying sinus rhythm Previous records in the computer system reviewed Chest x-ray new posterior right basilar region of consolidation with atelectasisor small possible effusions [facility] Medical History (Updated 01/02/25 @ 17:38 by Norah Whittaker MD) Pneumonia Lung cancer Seasonal allergies Problem List clean-up per request of Phys. [facility] Skin cancer Problem List clean-up per request of Phys. EHR [facility] Gout Problem List clean-up per request of Phys. EHR [facility] Back pain Problem List clean-up per request of Phys. EHR Cmte Arthritis Problem List clean-up per request of Phys. EHR Cmte BPH (benign prostatic hyperplasia) Problem List clean-up per request of Phys. [facility] Surgical History History of carpal tunnel release of both wrists Problem List clean-up per request of Phys. [facility] History of cystoscopy Problem List clean-up per request of Phys. [facility] Family History Sister Kidney disease Father Hypertension Mother Arthritis Social History Smoking Status: Former smoker Tobacco Type: cigarettes Substance Use Type: None Social History Comments: son lives with them Meds Medications and Allergies Allergies codeine Allergy (Verified 01/02/25 13:47) Chills sulfamethoxazole (From Bactrim) Adverse Reaction (Verified 01/02/25 13:47) Unable to urinate trimethoprim (From Bactrim) Adverse Reaction (Verified 01/02/25 13:47) Unable to urinate [place] pollen Allergy (Uncoded 08/11/18 15:46) Eyes swell shut;sneezing Home Medications fluticasone propionate 50 mcg/actuation nasal spray,suspension (Flonase Allergy Relief) 1 spry intranasal DAILY PRN Allergy Symptoms 12/14/17 [History Confirmed 01/02/25] multivitamin 1 tab PO DAILY 05/17/19 [History Confirmed 01/02/25] metoprolol succinate 50 mg tablet,extended release 24 hr 25 mg PO QHS 09/08/24 [History Confirmed 01/02/25] benzonatate 100 mg capsule 100 mg PO TID PRN cough 01/02/25 [History Confirmed 01/02/25] diphenhydramine HCl 25 mg capsule (Allergy (diphenhydramine)) 25 mg PO QHS 01/02/25 [History Confirmed 01/02/25] Exam Physical Exam Vital Signs: Temp Pulse Resp BP Pulse Ox O2 Del Method 36.6 C 79 18 103/57 L 95 Room Air 01/02/25 13:48 01/02/25 15:56 01/02/25 15:56 01/02/25 15:56 01/02/25 15:56 01/02/25 15:56 Results - Hospitalist H&P Lab Results Labs: Laboratory Last Values Corrected WBC 15.5 X10E3/uL (4.1-10.5) H 01/02/25 14:20 Uncorrected WBC Count 15.5 x10E3/uL (4.1-10.5) H 01/02/25 14:20 RBC 3.83 x10E6/uL (3.90-5.60) L 01/02/25 14:20 Hgb 10.3 g/dL (13.0-17.0) L 01/02/25 14:20 Hct 32.0 % (38.8-50.0) L 01/02/25 14:20 MCV 83.6 fl (83.5-101) 01/02/25 14:20 MCH 26.8 pg (27.5-35.2) L 01/02/25 14:20 MCHC 32.0 g/dL (32.5-35.6) L 01/02/25 14:20 RDW 15.7 % (12.0-14.8) H 01/02/25 14:20 Plt Count 249 x10E3/uL (150-450) 01/02/25 14:20 MPV 7.9 fl (6.6-10.1) 01/02/25 14:20 Neut % (Auto) 93.9 % (.) 01/02/25 14:20 Lymph % (Auto) 2.3 % (.) 01/02/25 14:20 [facility] [place] [facility] % (Auto) 2.4 % (.) 01/02/25 14:20 Eos % (Auto) 1.0 % (.) 01/02/25 14:20 Baso % (Auto) 0.4 % (.) 01/02/25 14:20 Nucleat RBC Rel Count 0.0 /100 WBC (0-0.5) 01/02/25 14:20 Neut # (Auto) 14.5 x10E3/uL (1.8-7.7) H 01/02/25 14:20 Lymph # (Auto) 0.4 x10E3/uL (1.00-4.8) L 01/02/25 14:20 [facility] # (Auto) 0.4 x10E3/uL (0.0-0.8) 01/02/25 14:20 Eos # (Auto) 0.1 x10E3/uL (0.0-0.45) 01/02/25 14:20 Baso # (Auto) 0.1 x10E3/uL (0.0-0.2) 01/02/25 14:20 Monocyte Dist Width 24.21 % (0.00-20.00) H 01/02/25 14:20 PT 17.1 Seconds (9.0-12.9) H 01/02/25 14:20 INR 1.5 01/02/25 14:20 APTT 26.1 Seconds (25.1-36.5) 01/02/25 14:20 D-Dimer Quant (PE/DVT) 1250 ng/mL (0-243) H 01/02/25 14:20 PHA Creatinine Clear 99.34 01/02/25 14:20 Sodium 134 mmol/L (136-145) L 01/02/25 14:20 Potassium 3.7 mmol/L (3.5-5.1) 01/02/25 14:20 Chloride 107 mmol/L (98-107) 01/02/25 14:20 Carbon Dioxide 19.4 mmol/L (21.0-31.0) L 01/02/25 14:20 Anion Gap 11.3 mEq/L (6.0-15.0) 01/02/25 14:20 BUN 12 mg/dL (7-25) 01/02/25 14:20 Creatinine 0.79 mg/dL (0.70-1.30) 01/02/25 14:20 Est GFR (CKD-EPI) > 60.0 mL/Min 01/02/25 14:20 Glucose 107 mg/dL (70-100) H 01/02/25 14:20 Calcium 8.3 mg/dL (8.6-10.3) L 01/02/25 14:20 Magnesium 1.5 mg/dL (1.9-2.7) L 01/02/25 14:20 Total Bilirubin 0.6 mg/dl (0.3-1.0) 01/02/25 14:20 AST 13 U/L (13-39) 01/02/25 14:20 ALT 9 U/L (7-52) 01/02/25 14:20 Alkaline Phosphatase 59 U/L (34-104) 01/02/25 14:20 Troponin I High Sens 6 ng/L (0-20) 01/02/25 14:20 B-Natriuretic Peptide 44.0 pg/mL (5-100) 01/02/25 14:20 Total Protein 6.0 gm/dL (6.4-8.9) L 01/02/25 14:20 Albumin 3.0 gm/dL (3.5-5.7) L 01/02/25 14:20 Globulin 3.0 gm/dL 01/02/25 14:20 Albumin/Globulin Ratio 1.0 01/02/25 14:20 Assessment & Plan Assessment/Plan (1) Pneumonia: Plan 1. Pneumonia, suspect bacterial Recently hospitalized at [facility], discharged with Augmentin and doxycycline For now we will try to obtain sputum cultures, because of rigors/chills obtain blood cultures to rule out bacteremia Due to recent hospitalization broad-spectrum antibiotics Due to hypotension start hydration Unlikely allergic reaction due to chemotherapy We will get CTA due to significantly elevated D-dimers 2. Recently diagnosed lung cancer, on chemotherapy, first cycle today only underwent 5 to 10 minutes of infusion 3. Hypomagnesemia replacement 4. DVT prophylaxis Lovenox, anemia noted but no active signs of bleeding IP vs OBS Justification Based on differential dx, clinical care plan, and risk of adverse events, if untreated, in my clinical judgement this patient requires an acute care setting as: INPATIENT because of an expectation ofan over 2 midnight stay. Estimated length of stay (# of days): 3 Documented By: Norah Whittaker MD 01/02/25 1729 Signed By: 01/02/25 1739 [facility]07-22-2025 Radiology Diagnostic study note [facility] [place] [address] [place] [address] CT Scan Report Signed Patient: Jatin Koch II MR#: [id number] : 1960 Acct:[id number] Age/Sex: 64 / M ADM Date: 5 Loc: ER Room: Type: [facility] ER Attending Dr: Copies to: Dominic Ryder PA-C~ Ordering Provider: Dominic Ryder PA-C Date of Service: 01/02/25 CT/CT head/brain wo con: weakness Unenhanced head CT TECHNIQUE: Contiguous axial imaging of the head. The CT exam was performed usingone or more the following dose reduction techniques: Automated exposure control,adjustment of the MA and/or Kv according to patient size, or use of the iterative reconstruction technique. COMPARISON: None HISTORY: Weakness. Shortness of breath. History of lung cancer treatment today VENTRICLES: Within normal limits ATROPHY: Mild atrophy BRAIN PARENCHYMA: Decreased density of the white matter is most consistent withchronic small vesseldisease. HEMORRHAGE: None HERNIATION: No mass effect or herniation INFARCTION: No recent vascular distribution infarction is seen. EXTRA-AXIAL FLUID COLLECTIONS None MIDBRAIN: Unremarkable ISELA: Unremarkable MEDULLA: Unremarkable SINUSES: Unremarkable ORBITS: Grossly unremarkable MASTOIDS: Unremarkable BONY STRUCTURES Intact ADDITIONAL FINDINGS: Atherosclerosis of carotid siphons and V4 segments CT/CT head/brain wo con IMPRESSION: No acute findings. Impression dictated by: Kirk Mccann M.D. 01/02/2025 3:04 PM Dictation Location: [facility]--20 Transcribed By: [facility] 01/02/25 1504 Dictated By: Kirk Mccann DO 01/02/25 1503 Signed By: 01/02/25 1504 [facility]07-22-2025 [facility] History of Present illness Narrative* Susanne Francis RN - 01/02/2025 2:51 PM EDT 1303 -- Pt rings muir 5 mins after taxol #1 infusion started and noted to be extremely flushed, purple in color, dizzy and severely diaphoretic. Taxol infusion immediately stopped and NS infusing at 999mL/hr. Pt denies any CP or other issue, RN x3 and pharmacist chairside for assist. Total taxol infused was 26.5mL (9.08mg). 1305 -- BP 103/71, SpO2 reading 88% RA and pt mouth breathing, placed on 6L O2 via NC at this time and educated to take deep breaths through nares, which pt was able to do. SpO2 increased to 93%. and Mic Salcedo NP arrive chairside after Dr. LUNSFORD called. New order to give solu-cortef 100mg IVP at this time. 1306 -- Pt without improvement, new order to give benadryl 25mg IVP per Dr. Perez. NS remains infusing. 1308 -- Pt continues without improvement, unable to obtain automatic BP, RN attempting manual at this time. New order via Dr. Perez for pepcid 20mg IVP to be given. EMS called at this time, ptplaced in trendelenburg with pillow support under BLE hoping to improve hypotension. 1309 -- RN attempted BP and only able to auscultate systolic BP ~86. Left radial pulse palpated by Dr. Perez and states he was able to feel an appropriate pulse. Pt does admit he has new onseta-fib that he is being followed for; HR ~110 at this time. NS remains infusing, pt color slightly improving. 1312 -- Pt's color nearing normal, diaphoresis remains and NS continues infusing. Pt denies other symptoms, aware EMS en route and he will be transferred to local ER; agreeable and updated. 1314 -- Updated automatic BP 63/44, pt remains alert, continues with dizziness and diaphoresis; NS remains infusing. Dr. Perez inquiring about EKG at this time, not done d/t EMS approaching. 1315 -- EMS arrival to infusion room, updated on situation and assisting pt from tx chair to stretcher. 1320 -- Patient remains alert, skin normal in color, diaphoretic, resp even and unlabored on O2 viaNC; care transferred to [facility] and pt leaves for [facility] at this time. Susanne Francis RN documented in this encounterRivers[facility]07-22-2025 Instructions* Patient Instructions* Rasheed Perez MD - 01/02/2025 11:11 AM EDT Treatment today and next week Refer to palliative care F/u in 1 week documented in this encounterRiverside [facility]07-22-2025 [facility]Louis [facility]07-[facility] History of Present illness Narrative* Rasheed Perez MD - 01/02/2025 10:58 AM EDT Images from the original note were not included. PATIENT NAME: Jatin Koch II CLINIC NO.: [id number] ATTENDING PHYSICIAN: Rasheed Perez MD DATE OF SERVICE: 01/02/[address] Chip Carbajal [address] [place] [address] thank you for referring Jatin Koch II for an opinion regarding Lung cancer. Some of the elements of this note have been copied from my previous progress note dated 12/26/24 . All the information has been reviewed carefully. CHIEF COMPLAINT: Lung cancer HPI: Jatin Koch II is a 63 year old year old male with PMH of HTN referred to us for lung cancer. CT chest : PET scan: C/o cough and lost 30lbs. Quit smoking in 2016. Smoked 1 pk/day for 40yrs. 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 C/o hemoptysis. C/o mild dysphagia. 11/17/24: - Recently had a pacemaker implanted on 11/09/24 due to complete heart block, which was an emergencyprocedure. He reports feeling 100% better since the pacemaker was placed. - Scheduled for bronchoscopy on 11/20/24. - Doing well. - Cough is better. 12/26/24: - Hospitalized from 12/15-12/22/24 with pneumonia - CT C/A/P at [facility] in December 2024 is negative for mets. - C/o right sided chest pain - He will finish antibiotics on Wednesday. 01/02/25: - C/o chills. - Started radiation today - Cycle 1 chemo today. - C/o loss of appetite and weight loss. Current Outpatient Medications Medication Sig esomeprazole (NEXIUM) 40 mg capsule Take 40 mg by mouth. potassium chloride ER (KLOR-CON) 20 mEq tablet Take 1 tablet by mouth once daily for 7 days. sennosides-docusate sodium (SENNA PLUS) 8.6-50 mg capsule Take 1 capsule by mouth two times a day as needed for constipation. prochlorperazine (COMPAZINE) 10 mg tablet Take 1 tablet by mouth every 6 hours as needed. ondansetron (ZOFRAN) 8 mg tablet Take 1 tablet by mouth every 8 hours as needed for nausea/vomiting. HERBAL DRUGS MISC 1 capsule once daily. [place]/Soursop OTC PRODUCT THC 10mg am and 5mg with lunch and supper - appetite, pain, energy loratadine 10 mg dissolvable tablet Take 10 mg by mouth once daily. albuterol HFA (PROVENTIL HFA, VENTOLIN HFA) 90 mcg/actuation inhaler Inhale 2 puffs as instructed every 4 hours as needed for wheezing/shortness of breath. dextromethorphan-guaiFENesin (MUCINEX DM) 30-600 mg per tablet Take 1 tablet by mouth once daily asneeded for cold/allergy symptoms or cough. meclizine (ANTIVERT) 25 mg tab Take 25 [...] Take 25 mg by mouth once daily. No current facility-administered medications for this visit. [...] : Deferred LABS: Glucose (mg/dL) Date Value 12/26/2024 120 Potassium (mmol/L) Date Value 12/26/2024 3.2 Sodium (mmol/L) Date Value 12/26/2024 136 Chloride (mmol/L) Date Value 12/26/2024 102 CO2 (mmol/L) Date Value 12/26/2024 20 Creatinine (mg/dL) Date Value 12/26/2024 0.84 BUN (mg/dL) Date Value 12/26/2024 17 Anion Gap (mmol/L) Date Value 12/26/2024 14 Calcium, Total (mg/dL) Date Value 12/26/2024 9.5 Protein, Total (g/dL) Date Value 12/26/2024 7.0 Albumin (g/dL) Date Value 12/26/2024 3.7 Bilirubin, Total (mg/dL) Date Value 12/26/2024 0.3 Alkaline Phosphatase (U/L) Date Value 12/26/2024 68 AST (U/L) Date Value 12/26/2024 10 ALT (U/L) Date Value 12/26/2024 9 WBC Date Value Ref Range Status 01/02/2025 13.64 (H) 3.70 - 11.00 k/uL Final RBC Date Value Ref Range Status 01/02/2025 3.95 (L) 4.20 - 6.00 m/uL Final Hemoglobin Date Value Ref Range Status 01/02/2025 10.5 (L) 13.0 - 17.0 g/dL Final Hematocrit Date Value Ref Range Status 01/02/2025 34.0 (L) 39.0 - 51.0 % Final MCV Date Value Ref Range Status 01/02/2025 86.1 80.0 - 100.0 fL Final MCH Date Value Ref Range Status 01/02/2025 26.6 26.0 - 34.0 pg Final MCHC Date Value Ref Range Status 01/02/2025 30.9 30.5 - 36.0 g/dL Final RDW-CV Date Value Ref Range Status 01/02/2025 14.6 11.5 - 15.0 % Final Platelet Count Date Value Ref Range Status 01/02/2025 312 150 - 400 k/uL Final MPV Date Value Ref Range Status 01/02/2025 9.3 9.0 - 12.7 fL Final Abs Neut Date Value Ref Range Status 01/02/2025 11.15 (H) 1.45 - 7.50 k/uL Final Lymphocytes % Date Value Ref Range Status 01/02/2025 8.9 % Final Abs Lymph Date Value Ref Range Status 01/02/2025 1.21 1.00 - 4.00 k/uL Final Monocytes % Date Value Ref Range Status 01/02/2025 4.6 % Final Abs [facility] Date Value Ref Range Status 01/02/2025 0.63 <0.87 k/uL Final Abs Eosin Date Value Ref Range Status 01/02/2025 0.52 (H) <0.46 k/uL Final Basophils % Date Value Ref Range Status 01/02/2025 0.3 % Final Abs Baso Date Value Ref Range Status 01/02/2025 0.04 <0.11 k/uL Final PATH: IMAGING: PET scan [...] 12/15-12/22/24 with pneumonia - CT C/A/P at [facility] in December 2024 is negative for mets - Right lung, bronchus intermedius, endobronchial biopsy: Squamous cell carcinoma. PD-L1 TPS 0%. PLAN: 1. Malignant neoplasm of lower lobe of right lung (HCC) - ICD9: 162.5, ICD10: C34.31 - Due for cycle 1 weekly carbo taxol today - Pt developed infusion reaction after starting Taxol infusion. - Developed sweating, hypotension, lethargy, tachycardia etc. - Called EMS and sent him to hospital for further evaluation - Supposed to start radiation treatment today - We will do cisplatin etoposide with radiation after the discharge. - We will follow up after the discharge from hospital. Dear Dr. Chip Carbajal [address] [address] thank you for allowing me to participate in Jatin Koch II care, if there are any questions or concerns please do not hesitate to contact me at the number below. I spent a total of 30 minutes on the date of the service which included preparing to see the patient, [id number] patient care, completing clinical documentation, obtaining and/or reviewing separately obtained history, performing a medically appropriate examination, counseling and educating the pat ient/family/caregiver, ordering medications, tests, or procedures, communicating with other HCPs (not separately reported), independently interpreting results (not separately reported), communicatingresults to the patient/family/caregiver, and care coordination (not separately reported). Rasheed Perez MD. Hematology/Medical Oncology [facility] [phone] CC: documented in this encounterRiverside [facility]07-15-2025 NoteLouis [facility]07-[facility]-2025 History of Present illness Narrative* Madison Gagnon LMT - 12/26/2024 3:13 PM EDT Patient Name: Jatin Koch II : 1960 Referred For: Chair massage Diagnosis: muscle soreness Chief Complaint: Relaxation Anxiety (pre): patient declined to answer Pain (pre): patient declined to answer Stress Level (pre): patient declined to answer Therapy Provided: Massage Therapy Area(s) Treated: Neck, shoulders and lower back Anxiety (post): patient declined to answer Pain (post): patient declined to answer Stress Level (post): patient declined to answer Visit Outcome: Better Comments: stand by assist patient on/off the chair. Check in with patient during massage to make sure he is not light headed or dizzy. Post massage patient stated he felt great. His said that isthe first time she seen a big smile on his face. Treatment Plan: Peruvian massage, medium pressure, effleurage/petrissage, cross fiber friction, trigger point therapy to upper trapezius and mid-lower back. Myofascial release to cervical neck Care Team contacted: N/A Signature: Madison Gagnon LMT Date: December 26, 2024 Time: 3:13 PM documented in this encounterRiverside Methodist Hospital07-15-2025 Telephone encounter Note * Telephone Encounter - Ileana Bear RN - 12/26/2024 2:41 PM EDT Pt notified and verbalizes understanding. Ileana Bear RN [facility] Work Phone: [phone] Miscellaneous Notes* Telephone Encounter - Ileana Bear RN - 12/26/2024 2:41 PM EDT Pt notified and verbalizes understanding. Ileana Bear RN * Telephone Encounter - Rasheed Perez MD - 12/26/2024 2:36 PM EDT I sent potassium tablets to pharmacy. Please tell him to take it. Thanks documented in this encounterRiverside [facility] Hospital07-15-2025 Telephone encounter Note * Telephone Encounter - Rasheed Perez MD - 12/26/2024 2:36 PM EDT I sent potassium tablets to pharmacy. Please tell him to take it. Thanks [facility]07-15-2025 Instructions* Patient Instructions* Rasheed Perez MD - 12/26/2024 2:07 PM EDT Schedule chemo next week F/u with rad onc this week. Pt already had simulation done. Can we start radiation next week? Start chemo on the start day of radiation Ordered physical therapy consult Ordered handicap parking F/u next week. documented in this encounterRiverside [facility] Hospital07-15-2025 NoteLouis [facility]07-[facility]-2025 History of Present illness Narrative* Rasheed Perez MD - 12/26/2024 1:40 PM EDT Images from the original note were not included. PATIENT NAME: Jatin Koch II CLINIC NO.: [id number] ATTENDING PHYSICIAN: Rasheed Perez MD DATE OF SERVICE: 12/26/[address] Chip Carbajal [address] [place] [address] thank you for referring Jatin Koch II for an opinion regarding Lung cancer. Some of the elements of this note have been copied from my previous progress note dated 11/17/24 . All the information has been reviewed carefully. CHIEF COMPLAINT: Lung cancer HPI: Jatin Koch II is a 63 year old year old male with PMH of HTN referred to us for lung cancer. CT chest : PET scan: C/o cough and lost 30lbs. Quit smoking in 2016. Smoked 1 pk/day for 40yrs. 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 C/o hemoptysis. C/o mild dysphagia. 11/17/24: - Recently had a pacemaker implanted on 11/09/24 due to complete heart block, which was an emergencyprocedure. He reports feeling 100% better since the pacemaker was placed. - Scheduled for bronchoscopy on 11/20/24. - Doing well. - Cough is better. 12/26/24: - Hospitalized from 12/15-12/22/24 with pneumonia - CT C/A/P at [facility] in December 2024 is negative for mets. - C/o right sided chest pain - He will finish antibiotics on Wednesday. Current Outpatient Medications Medication Sig amoxicillin-clavulanate potassium (AUGMENTIN) 875-125 mg per tablet Take 1 tablet by mouth two times a day. Patient should start on December 23, 2024. doxycycline hyclate (VIBRAMYCIN) 100 mg capsule Take 100 mg by mouth two times a day. Patient should start on December 23, 2024. sennosides-docusate sodium (SENNA PLUS) 8.6-50 mg capsule [...] THC 5mg TID - appetite, pain, energy loratadine 10 mg dissolvable tablet Take 10 mg by mouth once daily. albuterol HFA (PROVENTIL HFA, VENTOLIN HFA) 90 mcg/actuation inhaler Inhale 2 puffs as instructed every 4 hours as needed for wheezing/shortness of breath. dextromethorphan-guaiFENesin (MUCINEX DM) 30-600 mg per tablet Take 1 tablet by mouth once daily asneeded for cold/allergy symptoms or cough. meclizine (ANTIVERT) 25 mg tab Take 25 [...] XL) 25 mg 24 hr tablet Take 50 mg by mouth once daily. No current facility-administered medications for this visit. [...] TBILI , ALKPHOS , AST , ALT WBC Date Value Ref Range Status 12/26/2024 16.99 (H) 3.70 - 11.00 k/uL Final RBC Date Value Ref Range Status 12/26/2024 3.95 (L) 4.20 - 6.00 m/uL Final Hemoglobin Date Value Ref Range Status 12/26/2024 10.8 (L) 13.0 - 17.0 g/dL Final Hematocrit Date Value Ref Range Status 12/26/2024 33.9 (L) 39.0 - 51.0 % Final MCV Date Value Ref Range Status 12/26/2024 85.8 80.0 - 100.0 fL Final MCH Date Value Ref Range Status 12/26/2024 27.3 26.0 - 34.0 pg Final MCHC Date Value Ref Range Status 12/26/2024 31.9 30.5 - 36.0 g/dL Final RDW-CV Date Value Ref Range Status 12/26/2024 15.2 (H) 11.5 - 15.0 % Final Platelet Count Date Value Ref Range Status 12/26/2024 246 150 - 400 k/uL Final MPV Date Value Ref Range Status 12/26/2024 9.0 9.0 - 12.7 fL Final Abs Neut Date Value Ref Range Status 12/26/2024 14.21 (H) 1.45 - 7.50 k/uL Final Lymphocytes % Date Value Ref Range Status 12/26/2024 7.8 % Final Abs Lymph Date Value Ref Range Status 12/26/2024 1.32 1.00 - 4.00 k/uL Final Monocytes % Date Value Ref Range Status 12/26/2024 4.9 % Final Abs [facility] Date Value Ref Range Status 12/26/2024 0.84 <0.87 k/uL Final Abs Eosin Date Value Ref Range Status 12/26/2024 0.51 (H) <0.46 k/uL Final Basophils % Date Value Ref Range Status 12/26/2024 0.2 % Final Abs Baso Date Value Ref Range Status 12/26/2024 0.04 <0.11 k/uL Final PATH: IMAGING: PET scan [...] on 11/09/24 due to complete heart block. PLAN: 1. Malignant neoplasm of lower lobe of right lung (HCC) - ICD9: 162.5, ICD10: C34.31 - Doing well currently - Hospitalized from 12/15-12/22/24 with pneumonia - CT C/A/P at [facility] in December 2024 is negative for mets - Scheduled for bronchoscopy on 11/20/24. Right lung, bronchus intermedius, endobronchial biopsy: Squamous cell carcinoma. PD-L1 TPS 0%. - Pt already had radiation simulation done - We will start weekly carbo taxol with radiation next week - All his questions answered in detail. - F/u in [address] Chip Gary [place] [address] thank you for allowing me to participate in [facility], [place], if there are any questions or concerns please do not hesitate to contact me at the number below. I spent a total of 20 minutes on the date of the service which included preparing to see the patient, [id number] patient care, completing clinical documentation, obtaining and/or reviewing separately obtained history, performing a medically appropriate examination, counseling and educating the pat ient/family/caregiver, ordering medications, tests, or procedures, communicating with other HCPs (not separately reported), independently interpreting results (not separately reported), communicatingresults to the patient/family/caregiver, and care coordination (not separately reported). Rasheed Perez MD. Hematology/Medical Oncology [facility] [phone] CC: documented in [facility] encounterR[facility]07-14-[facility]25 Miscellaneous Notes* Telephone Encounter - Xiomara Wright RN - 12/25/2024 8:56 AM EDT Images from the original note were not included. Patient with [place] duel chamber pacemake placed 11/09/24 with JZL. Patient doing weekly home monitor transmissions due to radiation. Transmission received showing 6 AT/AF events, one EGM shows farfield. Rest of EGMs show AT/AF, max duration 36 minutes 27 seconds. All events on 12/18/24 between 0915- 1629. Patient does not have history of AF and is not on OACs. Please review and advise, thank you Presenting EGM As- Change Advisor events. Atrial burden <1%. * Telephone Encounter - Robert Veloz MD - 12/25/2024 8:56 AM EDT Reviewed, CHADS2 Vasc essentially 1, burden of atrial fibrillation low in in the setting of radiation therapy. Okay to continue monitoring for now off of anticoagulation. * Telephone Encounter - Xiomara Wright RN - 12/25/2024 8:56 AM EDT Images from the original note were not included. Patient was in [facility] at time of events for a week. Patient was in hospital for pneumonia. While in there they increased his Metoprolol to 50mg daily. She states this was due to elevated HRwhile in there. states that they have not been giving him the increased dose while home yet cause they wanted to check with us before giving it. She states she is concerned about his BP. She asks to look back at BP while in office to see that his bp is on low side already. She states her BP machine broke and plans to go get one today. Please review and advise, thank you Patient advised of events on 12/18/24 and JZL response. Last in office bp was 110/62 HR 90 * Telephone Encounter - Robert Veloz MD - 12/25/2024 8:56 AM EDT Would leave him at Toprol 25 mg q.day, his prior dosing. * Telephone Encounter - Xiomara Wright RN - 12/25/2024 8:56 AM EDT LM for patient with JZL response. * Telephone Encounter - Josseline Stewart RN - 12/25/2024 8:56 AM EDT Images from the original note were not included. Home monitor alert for 5 PMT events. Saved EGMs appear sinus rate 130s with episodes of Max track pacing 1:1 conduction as well as episodes of upper rate behavior 2:1 conduction. All events on 12/26/24. Pt called and states he feels well. Recent hospitalization for pneumonia with plans to start radiation treatments next week. Mean ventricular rate over the past 24 hrs was 86 bpm. No further AF events since 12/18/24. Please advise if we are ok to continue to monitor. Thank you. * Telephone Encounter - Robert Veloz MD - 12/25/2024 8:56 AM EDT Okay to continue monitoring * Telephone Encounter - Sheila Betancourt RN - 12/25/2024 8:56 AM EDT Pt's calls office this am stating they are [facility] tx and managementof pt's cancer dx. She states that the pt's vitals today were 94/56 HR 104. Staff at requested monitor BP and HR at home with a log, however also were suggesting that they contact our office for any parameters in which the Metoprolol would need to be held. Side note, she did state that last wk pt went in for chemo tx and had a reaction to the chemo in which the pt went into Afib and his blood pressure dropped. She states pt has just been taking Toprol 25mg QD hs. Attached call to these previous device nurse notes given there was discussion about the home monitor on here as well. Device clinic, anything else new on your end that should be noted here? JBP please review and advise for SANYA off. * Telephone Encounter - Crystal Morin RN - 12/25/2024 8:56 AM EDT No new alerts/detections from home monitor since 12/28/24. LVM with pt to send transmission through home monitor to assess rhythm/device once home. Per prior note, pt was at . Pt is scheduled 01/10/25 for weekly home monitor transmission while receiving radiation. * Telephone Encounter - Lani Khanna MD - 12/25/2024 8:56 AM EDT Looks like patient has a Afib that was recently diagnose few weeks back, undergoing cancer treatment and recent pneumonia. Would not recommend holding metoprolol if he is tolerating it without side effects or symptoms of orthostatic dizziness, lightheadedness or near-syncope. Obviously with underlyi ng comorbidities and other medical issues blood pressure might be low hydration would be importanceif the persistent low blood pressure might want to ask the cancer doctor to prescribe or primary care to prescribe midodrine. Holding or not giving metoprolol might cause more problems than not. documented in this encounterG[facility] Center[facility] Telephone encounter Note* Telephone Encounter - Xiomara Wright RN - 12/25/2024 8:56 AM EDT Images from the original note were not included. Patient with [place] duel chamber pacemake placed 11/09/24 with JZL. Patient doing weekly home monitor transmissions due to radiation. Transmission received showing 6 AT/AF events, one EGM shows farfield. Rest of EGMs show AT/AF, max duration 36 minutes 27 seconds. All events on 12/18/24 between 0915- 1629. Patient does not have history of AF and is not on OACs. Please review and advise, thank you Presenting EGM As- Change Advisor events. Atrial burden <1%. [facility]07-14-2025 Telephone encounter Note* Telephone Encounter - Robert Veloz MD - 12/25/2024 8:56 AM EDT Reviewed, CHADS2 Vasc essentially 1, burden of atrial fibrillation low in in the setting of radiation therapy. Okay to continue monitoring for now off of anticoagulation. [facility] Work Phone: [phone]) [phone] Telephone encounter Note* Telephone Encounter - Xiomara Wright RN - 12/25/2024 8:56 AM EDT Images from the original note were not included. Patient was in [facility] at time of events for a week. Patient was in hospital for pneumonia. While in there they increased his Metoprolol to 50mg daily. She states this was due to elevated HRwhile in there. states that they have not been giving him the increased dose while home yet cause they wanted to check with us before giving it. She states she is concerned about his BP. She asks to look back at BP while in office to see that his bp is on low side already. She states her BP machine broke and plans to go get one today. Please review and advise, thank you Patient advised of events on 12/18/24 and JZL response. Last in office bp was 110/62 HR 90 [facility]07-14-2025 Telephone encounter Note* Telephone Encounter - Robert Veloz MD - 12/25/2024 8:56 AM EDT Would leave him at Toprol 25 mg q.day, his prior dosing. [facility]07-14-2025 Telephone encounter Note* Telephone Encounter - Xiomara Wright RN - 12/25/2024 8:56 AM EDT LM for patient with JZL response. [facility]07-14-2025 Telephone encounter Note* Telephone Encounter - Josseline Stewart RN - 12/25/2024 8:56 AM EDT Images from the original note were not included. Home monitor alert for 5 PMT events. Saved EGMs appear sinus rate 130s with episodes of Max track pacing 1:1 conduction as well as episodes of upper rate behavior 2:1 conduction. All events on 12/26/24. Pt called and states he feels well. Recent hospitalization for pneumonia with plans to start radiation treatments next week. Mean ventricular rate over the past 24 hrs was 86 bpm. No further AF events since 12/18/24. Please advise if we are ok to continue to monitor. Thank you. [facility] [employer] [phone] Telephone encounter Note* Telephone Encounter - Robert Veloz MD - 12/25/2024 8:56 AM EDT Okay to continue monitoring [facility]07-14-2025 Telephone encounter Note* Telephone Encounter - Sheila Betancourt RN - 12/25/2024 8:56 AM EDT Pt's calls office this am stating they are currently [facility] for tx and managementof pt's cancer dx. She states that the pt's vitals today were 94/56 HR 104. Staff at requested monitor BP and HR at home with a log, however also were suggesting that they contact our office for any parameters in which the Metoprolol would need to be held. Side note, she did state that last wk pt went in for chemo tx and had a reaction to the chemo in which the pt went into Afib and his blood pressure dropped. She states pt has just been taking Toprol 25mg QD hs. Attached call to these previous device nurse notes given there was discussion about the home monitor on here as well. Device clinic, anything else new on your end that should be noted here? JBP please review and advise for JZL off. [facility]07-14-2025 Telephone encounter Note* Telephone Encounter - Crystal Morin RN - 12/25/2024 8:56 AM EDT No new alerts/detections from home monitor since 12/28/24. LVM with pt to send transmission through home monitor to assess rhythm/device once home. Per prior note, pt was at . Pt is scheduled 01/10/25 for weekly home monitor transmission while receiving radiation. [facility]07-14-2025 Telephone encounter Note* Telephone Encounter - Lani Khanna MD - 12/25/2024 8:56 AM EDT Looks like patient has a Afib that was recently diagnose few weeks back, undergoing cancer treatment and recent pneumonia. Would not recommend holding metoprolol if he is tolerating it without side effects or symptoms of orthostatic dizziness, lightheadedness or near-syncope. Obviously with underlyi ng comorbidities and other medical issues blood pressure might be low hydration would be importanceif the persistent low blood pressure might want to ask the cancer doctor to prescribe or primary care to prescribe midodrine. Holding or not giving metoprolol might cause more problems than not. [facility] Work Phone: [phone]) 200-785307-11-2025 Telephone encounter Note* Telephone Encounter - Ileana Bear RN - 12/22/2024 2:06 PM EDT DISCHARGE CALL BACK Today's date: December 22, 2024 Notified of Pt discharge by: Pt's spouse. [facility] Primary Cancer Diagnosis: Lung Cancer Admitting Diagnosis: Postobstructive Pneumonia Discharge Summary/SBAR reviewed: Yes Handoff Discussed with Transitional Receptionist Secretary: N/A Psychosocial Risk Factors: None If patient discharged to SNF/Rehab Facility, phone call completed to reinforce discharge instructions and follow up: N/A Call Disposition: Admission unrelated to cancer diagnosis/treatment. Spoke w/ pt's spouse, Eloy. Discharge medications reviewed. Spouse verbalizes understanding and states that she will be picking up the scripts for pt's Doxycycline and Augmentin later today. Pt scheduled to follow up w/ his PCP on 12/29. Spouse aware of his appointments here next week. Denies needs at present time. Pt's medication list updated to reflect new meds and changes. Ileana Bear RN [facility] Work Phone: [phone]) 566-309707-11-2025 Miscellaneous Notes* Telephone Encounter - Ileana Bear RN - 12/22/2024 2:06 PM EDT DISCHARGE CALL BACK Today's date: December 22, 2024 Notified of Pt discharge by: Pt's spouse. Patient [facility] Primary Cancer Diagnosis: Lung Cancer Admitting Diagnosis: Postobstructive Pneumonia Discharge Summary/SBAR reviewed: Yes Handoff Discussed with Transitional Receptionist Secretary: N/A Psychosocial Risk Factors: None If patient discharged to SNF/Rehab Facility, phone call completed to reinforce discharge instructions and follow up: N/A Call Disposition: Admission unrelated to cancer diagnosis/treatment. Spoke w/ pt's spouse, Eloy. Discharge medications reviewed. Spouse verbalizes understanding and states that she will be picking up the scripts for pt's Doxycycline and Augmentin later today. Pt scheduled to follow up w/ his PCP on 12/29. Spouse aware of his appointments here next week. Denies needs at present time. Pt's medication list updated to reflect new meds and changes. Ileana Bear RN documented in this encounterR[facility]07-11-2025 Telephone encounter Note * Telephone Encounter - Victoria Pack - 12/22/2024 1:30 PM EDT D/C summary scanned. [facility]07-11-2025 Miscellaneous Notes* Telephone Encounter - Victoria Pack - 12/22/2024 1:30 PM EDT D/C summary scanned. * Telephone Encounter - Carlos Funez - 12/22/2024 11:28 AM EDT Labs added * Telephone Encounter - Ileana Bear RN - 12/22/2024 11:20 AM EDT Pt will needs labs that day as well. Please add him to the lab schedule @ 145. Thanks! Pt's spouse notified of the appointment and verbalizes understanding. Ileana Bear RN * Telephone Encounter - Carlos Funez - 12/22/2024 11:17 AM EDT Follow up scheduled for December 26 at 2pm. He already had a massage set up for 230. * Telephone Encounter - Ileana Bear RN - 12/22/2024 11:11 AM EDT Clerical: Please schedule pt to see Dr Perez next week for follow up. Will determine treatment start date at that time. Will need labs w/ this visit as well. I will call and notify pt's spouseof the appointment when you have it scheduled. Thanks! XRT: BREANNA... Ileana Bear RN * Telephone Encounter - Rasheed Perez MD - 12/22/2024 10:55 AM EDT Just a follow up to see how he is doing. Thanks * Telephone Encounter - Ileana Bear RN - 12/22/2024 10:49 AM EDT Thank you for your quick reply. Should we plan to start treatment that day or just a follow up to see how he is doing? Ileana Bear RN * Telephone Encounter - Rasheed Perez MD - 12/22/2024 10:42 AM EDT Schedule follow up with me next week. Thank you * Telephone Encounter - Ileana Bear RN - 12/22/2024 10:40 AM EDT Update: Pt's spouse called to inform us that the physician was just in and advised he'd be discharged home later today. It is unclear if he'll be going home on an antibiotic or not. AV/XRT: When would you advise he follow up w/ us? Reyna: Please watch for his dc summary. Thanks! Ileana Bear RN * Telephone Encounter - Ileana Bear RN - 12/22/2024 10:28 AM EDT Update: Spoke w/ Jazlyn @ [facility]sur. Reports pt's discharge is pending results of his ECHO. ECHO ordered due to suspected SVT. Still receiving IV antibiotics for the pneumonia. WBC 19.7. H&H 10.1/32.1. Calcium yesterday was 11.2. Treated w/ calcitonin and bisphosphonate therapy. Repeat today was 9.7. Ileana Bear RN * Telephone Encounter - Cassia Cantu RN - 12/20/2024 11:15 AM EDT I called and spoke to Meredith nurse at [facility], she said Jatin's doctor did see him this a.m. but she doesn't have an update at this time. She said she isn't aware of an expected discharge date at this time. Nursing will continue to get updates from [facility]. Cassia E Graves, RN * Telephone Encounter - Blanquita Hargrove RN - 12/19/2024 10:34 AM EDT Call received from pt's stating pt is still admitted and they do not have a discharge date/time in mind yet. states on the message that she was notified of a missed appointment this morningand she's asking if it would be best to just cancel all of his appointments since she doesn't know when he will be discharged. Call placed to Shavon, bedside nurse who states the hospitalist hasn't rounded on pt yet. There is a possibility that pt may go home later today. My direct number was provided to Shavon and she will call me back as soon as the doctor has rounded on Zackary. Call placed to pt's and message left requesting her to call our office back. Explained on message that it would be b est to keep pt's appointments as scheduled for now and to cancel them day by day if need be. * Telephone Encounter - Victoria Pack - 12/18/2024 9:40 AM EDT Records scanned. * Telephone Encounter - Charlotte Euceda - 12/18/2024 8:42 AM EDT Cancelled patients appointments with REBEKAH and Dr Wilkerson today 12/18. Charlotte Jackson * Telephone Encounter - Blanquita Hargrove RN - 12/18/2024 8:33 AM EDT Call received from pt's stating pt is currently admitted at [facility] fro pneumonitis,possible pneumonia. WBC 33.5 currently on IV vanco and zosyn. Pt was due to start concurrent chemo/RT today. Reyna: can you get records please. Thanks Blanquita Hargrove, RN documented in this encounterR[facility]07-11-2025 Telephone encounter Note * Telephone Encounter - Carlos Funez - 12/22/2024 11:28 AM EDT Labs added [facility]07-11-2025 Telephone encounter Note* Telephone Encounter - Ileana Bear RN - 12/22/2024 11:20 AM EDT Pt will needs labs that day as well. Please add him to the lab schedule @ 145. Thanks! Pt's spouse notified of the appointment and verbalizes understanding. Ileana Bear RN [facility] Work Phone: [phone]) [phone] Telephone encounter Note* Telephone Encounter - Carlos Funez - 12/22/2024 11:17 AM EDT Follow up scheduled for December 26 at 2pm. He already had a massage set up for 230. [facility]07-11-2025 Telephone encounter Note* Telephone Encounter - Ileana Bear RN - 12/22/2024 11:11 AM EDT Clerical: Please schedule pt to see Dr Perez next week for follow up. Will determine treatment start date at that time. Will need labs w/ this visit as well. I will call and notify pt's spouseof the appointment when you have it scheduled. Thanks! XRT: FYI... Ileana Bear RN [facility]07-11-2025 Telephone encounter Note* Telephone Encounter - Rasheed Perez MD - 12/22/2024 10:55 AM EDT Just a follow up to see how he is doing. Thanks [facility]07-11-2025 Telephone encounter Note* Telephone Encounter - Ileana Bear RN - 12/22/2024 10:49 AM EDT Thank you for your quick reply. Should we plan to start treatment that day or just a follow up to see how he is doing? Ileana Bear RN [facility]07-11-2025 Telephone encounter Note* Telephone Encounter - Rasheed Perez MD - 12/22/2024 10:42 AM EDT Schedule follow up with me next week. Thank you [facility]07-11-2025 Telephone encounter Note* Telephone Encounter - Ileana Bear RN - 12/22/2024 10:40 AM EDT Update: Pt's spouse called to inform us that the physician was just in and advised he'd be discharged home later today. It is unclear if he'll be going home on an antibiotic or not. AV/XRT: When would you advise he follow up w/ us? Reyna: Please watch for his dc summary. Thanks! Ileana Bear RN [facility]07-11-2025 Telephone encounter Note* Telephone Encounter - Ileana Bear RN - 12/22/2024 10:28 AM EDT Update: Spoke w/ Jazlyn @ [facility] Medsurg. Reports pt's discharge is pending results of his ECHO. ECHO ordered due to suspected SVT. Still receiving IV antibiotics for the pneumonia. WBC 19.7. H&H 10.1/32.1. Calcium yesterday was 11.2. Treated w/ calcitonin and bisphosphonate therapy. Repeat today was 9.7. Ileana Bear RN [facility]07-09-2025 Telephone encounter Note* Telephone Encounter - Cassia Cantu RN - 12/20/2024 11:15 AM EDT I called and spoke to Meredith nurse at [facility], she said Jatin's doctor did see him this a.m. but she doesn't have an update at this time. She said she isn't aware of an expected discharge date at this time. Nursing will continue to get updates from [facility]. Cassia Cantu RN [facility]07-08-2025 Telephone encounter Note* Telephone Encounter - Blanquita Hargrove RN - 12/19/2024 10:34 AM EDT Call received from pt's stating pt is still admitted and they do not have a discharge date/time in mind yet. states on the message that she was notified of a missed appointment this morningand she's asking if it would be best to just cancel all of his appointments since she doesn't know when he will be discharged. Call placed to Shavon bedside nurse who states the hospitalist hasn't rounded on pt yet. There is a possibility that pt may go home later today. My direct number was provided to Shavon and she will call me back as soon as the doctor has rounded on Zackary. Call placed to pt's and message left requesting her to call our office back. Explained on message that it would be b est to keep pt's appointments as scheduled for now and to cancel them day by day if need be. [facility] Work Phone: [phone]) [phone] Telephone encounter Note* Telephone Encounter - Lauren Callejas - 12/19/2024 9:23 AM EDT Pulse Monitoring appt has been canceled Lauren B PSS [facility]07-08-2025 Miscellaneous Notes* Telephone Encounter - Lauren Callejas - 12/19/2024 9:23 AM EDT Pulse Monitoring appt has been canceled Lauren Kem PSS * Telephone Encounter - Macy Morgan RN - 12/18/2024 4:46 PM EDT Call placed to Jace[facility] and confirmed pt will be inpt tomorrow. Spoke to Lexie on [facility]. They are unsure of discharge planning at this time. They will contact our office when they're aware of discharge plan so we can coordinate chemo/rad start. PSS- please cancel pulse monitoring appt for 12/19. Radiation will be notified that new start will bepostponed. Macy Morgan, PRITI documented in this encounterR[facility] Hospital07-07-2025 Telephone encounter Note * Telephone Encounter - Macy Morgan, PRITI - 12/18/2024 4:46 PM EDT Call placed to [place] and confirmed pt will be inpt tomorrow. Spoke to Lexie on [facility]. They are unsure of discharge planning at this time. They will contact our office when they're aware of discharge plan so we can coordinate chemo/rad start. PSS- please cancel pulse monitoring appt for 12/19. Radiation will be notified that new start will bepostponed. Macy Morgan, RN [facility]07-07-2025 Telephone encounter Note* Telephone Encounter - Victoria Pack - 12/18/2024 9:40 AM EDT Records scanned. [facility]07-07-2025 Telephone encounter Note* Telephone Encounter - Charlotte Euceda - 12/18/2024 8:42 AM EDT Cancelled patients appointments with REBEK[facility] and Dr Wilkerson today 12/18. Charlotte Caldwell Pss [facility]07-07-2025 Telephone encounter Note* Telephone Encounter - Blanquita Hargrove RN - 12/18/2024 8:33 AM EDT Call received from pt's stating pt is currently admitted at [facility] fro pneumonitis,possible pneumonia. WBC 33.5 currently on IV vanco and zosyn. Pt was due to start concurrent chemo/RT today. Reyna: can you get records please. Thanks Blanquita Hargrove RN [facility]07-07-2025 Telephone encounter Note* Telephone Encounter - Macy Morgan, PRITI - 12/18/2024 7:42 AM EDT Rosey from [facility] left voicemail stating she had spoken to Dr Shaw. He is comfortable with Mr Koch having his device checks remotely each week. She will get this scheduled. Device clinic for further questions [phone]. Pt will also be monitored with daily treatment monitoring pulse ox. Macy Morgan RN [facility]07-07-2025 Miscellaneous Notes* Telephone Encounter - Macy Morgan RN - 12/18/2024 7:42 AM EDT Rosey from [facility] left voicemail stating she had spoken to Dr Shaw. He is comfortable with Mr Koch having his device checks remotely each week. She will get this scheduled. Device clinic for further questions [phone]. Pt will also be monitored with daily treatment monitoring pulse ox. Macy Morgan RN * Telephone Encounter - Cassia Cantu RN - 12/14/2024 4:18 PM EDT I called and spoke with Rosey at [facility]. 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 I notified her that Jatin is scheduled to start radiation therapy to the right chest on 12/18/24. Rosey states she will send a message to Dr. Shaw with the above and see if we are to follow physics recommendations as stated above or if Dr. Sahw will provide the instructions for pacemaker monitoring. Rosey isunsure if Dr. Shaw will respond by 12/18/24 prior to Jatin starting treatment. I have an email out to Anant and Dr. Lizama to clarify if chemoradiation should continue as scheduled if we do not receive a response by Wednesday a.m. Per Anant Davis, ophthalmic medical technologist, Devi dose report: Cumulative dose to pacemaker is planned to be72 cGy over 30 fractions. Patient is pacemaker dependent. Recommend weekly pacemaker checks and real-time monitoring (pulse ox) during each fraction. Burton Cantu RN documented in this encounterRivers[facility]07-[facility]25 Telephone encounter Note * Telephone Encounter - Cassia Cantu RN - 12/14/2024 4:18 PM EDT I called and spoke with Rosey at [facility]. 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 I notified her that Jatin is scheduled to start radiation therapy to the right chest on 12/18/24. Rosey states she will send a message to Dr. Shaw with the above and see if we are to follow physics recommendations as stated above or if Dr. Shaw will provide the instructions for pacemaker monitoring. Rosey isunsure if Dr. Shaw will respond by 12/18/24 prior to Jatin starting treatment. I have an email out to Anant and Dr. Lizama to clarify if chemoradiation should continue as scheduled if we do not receive a response by Wednesday a.m. Per Anant Davis, ophthalmic medical technologist, Skylar dose report: Cumulative dose to pacemaker is planned to be72 cGy over 30 fractions. Patient is pacemaker dependent. Recommend weekly pacemaker checks and real-time monitoring (pulse ox) during each fraction. Thanks Cassia Cantu RN [facility]07-01-2025 Telephone encounter Note* Telephone Encounter - Blanquita Hargrove RN - 12/12/2024 4:29 PM EDT Call received from pt's stating they would like to discuss physical therapy as an option for pt when he is here on Wednesday seeing Dr Wilkerson. Pt will need a face to face encounter for this order. Blanquita Hargrove RN [facility] Work Phone: [phone]) 230-309207-01-2025 Miscellaneous Notes* Telephone Encounter - Blanquita Hargrove RN - 12/12/2024 4:29 PM EDT Call received from pt's stating they would like to discuss physical therapy as an option for pt when he is here on Wednesday seeing Dr Wilkerson. Pt will need a face to face encounter for this order. Blanquita Hargrove RN documented in this encounterRiverside [facility] Hospital07-01-2025 Telephone encounter Note * Telephone Encounter - Carolina Perdue - 12/12/2024 11:04 AM EDT Patient scheduled. Carolina Perdue [facility]07-01-2025 Miscellaneous Notes* Telephone Encounter - Carolina Perdue - 12/12/2024 11:04 AM EDT Patient scheduled. Carolina Perdue * Telephone Encounter - Carolina [...] for XRT. Carolina Perdue documented in this encounterRiverside [facility] Hospital06-27-2025 Telephone encounter Note * Telephone Encounter - Blanquita Hargrove RN - 12/08/2024 4:12 PM EDT Voicemail received from pt's stating she has questions regarding a prior auth that needs to bedone for [employer] testing. Call placed to pt's and message left requesting her to call our office back Blanquita Hargrove RN [facility] Work Phone: [phone] Miscellaneous Notes* Telephone Encounter - Blanquita Hargrove RN - 12/08/2024 4:12 PM EDT Voicemail received from pt's stating she has questions regarding a prior auth that needs to bedone for [employer] testing. Call placed to pt's and message left requesting her to call our office back Blanquita Hargrove RN documented in this encounterRiverside [facility] Hospital06-27-2025 Telephone encounter Note * Telephone Encounter - Rasheed Perez MD - 12/08/2024 10:11 AM EDT No need to repeat now. Thank you. [facility]06-27-2025 Miscellaneous Notes* Telephone Encounter - Rasheed Perez MD - 12/08/2024 10:11 AM EDT No need to repeat now. Thank you. * Telephone Encounter - Blanquita Hargrove RN - 12/08/2024 10:[address] brain done here on 12/07 recommends brain MRI with and without. Pt had a brain MRI done on 11/02 at [facility]. Does this need ot be repeated or no? Please advise Blanquita Hargrove RN documented in this encounterRiverside Methodist Hospital06-27-2025 Telephone encounter Note * Telephone Encounter - Blanquita Hargrove RN - 12/08/2024 10:[address]'s [address] brain done here on 12/07 recommends brain MRI with and without. Pt had a brain MRI done on 11/02 at [facility]. Does this need ot be repeated or no? Please advise Blanquita Hargrove RN [facility] Work Phone: [phone] History of Present illness Narrative* Ezra Lizama MD - 12/08/2024 12:00 AM EDT JATIN KOCH [id number] 12/08/2024 [facility] Radiation Oncology Department SIMULATION NOTE DATE OF SIMULATION: 12/08/2024 THERAPIST: Nancy De La Garza MACHINE: [employer] mCT DIAGNOSIS: Malignant neoplasm of overlapping sites of [...] Ezra Lizama M.D. / CDT :44 PM documented in this encounterRiverside Methodist Hospital06-27-2025 History of Present illness Narrative* Ezra Lizama MD - 12/08/2024 12:00 AM EDT JATIN KOCH [id number] 12/08/2024 [facility] - Department of Radiation Oncology Treatment Planning Note For reasons stated in the consult note, Jatin Koch is a candidate for radiation therapy. Based on review and interpretation of the relevant diagnostic studies together with the exam findings, Jatin Koch was simulated on 12/08/2024 at which time the target volume and/or requisite hartmann were d elineated, as indicated in the simulation note, to be treated according to the prescription. An ITV was created from all the phases of respiratory motion captured by the 4DCT image sets. Motion management allowed for design of patient specific planning target volume and reduced the radiationexposure to normal tissues. The treatment target and [...] using conventional or 3D planning. The specific doserequirements for the PTV, organs at risk and dose-volume histograms are contained in this treatmentplan and/or elsewhere in the medical record. A completed summary of this plan dated 12/13/2024 incorporated herein by reference includes dose, beam arrangements, energy, blocking, isodose distribution, and/or ports and DVH. Electronically Signed Ezra Lizama M.D. 7/03/29729:01 AM documented in this encounterRiverside Methodist Hospital06-27-2025 NoteLouis [facility]06-27-[facility] NoteLouis [facility]06-26-20[facility] History of Present illness Narrative* Shola Milan, [employer] - 12/07/2024 3:00 PM EDT Jatin Koch II Date of visit: 12/07/2024 Date of : 1960 Age: 64 y.o. Patient Active Problem List Diagnosis AV block BPH with urinary obstruction Arthritis Gout Squamous cell lung cancer ([facility] Allergen Reactions Bactrim [Sulfamethoxazole-Trimethoprim] Codeine diaphoresis [...] am appt due to oncology appt ok permegan History of Present Illness Jatin Koch II is a 64-year-old gentleman who is here on follow-up for device check afterimplanted in October for syncope and intermittent complete [...] 11/09/2024 Performed by Robert Veloz MD at [facility] ([facility]) SKIN BIOPSY basal cell carcinoma removed from left anabaptism TONSILLECTOMY TURP / TRANSURETHRAL INCISION / DRAINAGE [...] Squamous cell carcinoma of lung, unspecified laterality ([facility]) 1. Intermittent complete heart block symptomatic with syncopal episodes s/p [employer] dual-chamber pacemaker 11/09/2024. Elevated atrial threshold [...] PCP: CLINT PRINCE Referring Physician: CLINT Prince [address] [place] [address] CLINT Chowdary 12/07/24 1548 documented in this encounterJoint [facility]06-26-2025 History of Present illness Narrative* Robert Veloz MD - 12/07/2024 2:30 PM EDT I agree with the findings in the scanned document. documented in this encounterJoint Township District [facility]06-26-2025 History of Present illness Narrative* Ileana Little RT(R) - 12/07/2024 8:15 AM EDT Radiology Service Progress Note PATIENT NAME: Jatin Koch II DATE OF SERVICE: December 07, 2024 TIME: 8:26 AM PATIENT IDENTITY VERIFICATION COMPLETED USING TWO (2) IDENTIFIERS: Name and Date of confirmedby patient verbally. FALL SCREENING: Has the patient had 2 falls in the last year or 1 fall with injury or currently using an Ambulatory Assistive Device (Walker, Cane, Wheelchair, Crutches, etc.)? No PATIENT GENDER DATA: Assigned male at PATIENT RELEVANT IMPLANT DATA REVIEWED: Not Applicable PATIENT PRESENTS WITH AN IMPLANTABLE OR ATTACHED CIGARETTE MACHINE OPERATOR: No RADIOLOGY DEPARTMENT: CT; Exam(s) Completed: Brain PERIPHERAL IV DATA: Not applicable SIGNED BY: RT Meagan(R) December 07, 2024 8:26 AM documented in this encounterRiverside [facility] Hospital06-26-2025 NoteLouis [facility]06-25-2025 Telephone encounter Note* Telephone Encounter - Victoria Pack - 12/06/2024 2:47 PM EDT Records scanned. [facility]06-25-2025 Miscellaneous Notes* Telephone Encounter - Ivelisse Clements Victoria Janeth - 12/06/2024 2:47 PM EDT Records scanned. * Telephone Encounter - Blanquita Hargrove RN - 12/06/2024 11:38 AM EDT Pt's CXR shows no changes. Blanquita Hargrove RN * Telephone Encounter - Rasheed Perez MD - 12/05/2024 2:52 PM EDT Consider going to ER if symptoms get worse. Thank you * Telephone Encounter - Blanquita Hargrove RN - 12/05/2024 12:58 PM EDT Call received from pt's stating pt continues with fevers. Pt saw PCP today and had a CXR done.Waiting for results. PCP started pt on prednisone [...] you get records from PCP please Thanks Blanquita Hargrove RN documented in this encounterRiverside [facility] Hospital06-25-2025 Telephone encounter Note * Telephone Encounter - Blanquita Hargrove RN - 12/06/2024 11:38 AM EDT Pt's CXR shows no changes. Blanquita Hargrove RN [facility] Work Phone: [phone] Telephone encounter Note* Telephone Encounter - Rasheed Perez MD - 12/05/2024 2:52 PM EDT Consider going to ER if symptoms get worse. Thank you [facility]06-24-2025 Telephone encounter Note* Telephone Encounter - Blanquita Hargrove RN - 12/05/2024 12:58 PM EDT Call received from pt's stating pt continues with fevers. Pt saw PCP today and had a CXR done.Waiting for results. PCP started pt on prednisone [...] you get records from PCP please Thanks Blanquita Hargrove RN [facility]06-23-2025 History of Present illness Narrative* Ezra Lizama MD - 12/04/2024 11:39 PM EDT Images from the original note were not included. Radiation Oncology - New Patient/Consult Note PATIENT NAME: Jatin Koch II PATIENT Signed: Ezra Lizama MD I spent a total of 60 minutes on the date of the service which included preparing to see the patient, [id number] patient care, and counseling and educating the patient/family/caregiver. This document has been created with the use of voice recognition technology. It may contain inaccuracies, misspellings, inaccurate syntax or inappropriate word context that are a result of the inadequacies/shortcomings of said technology/software. * Cassia Cantu RN - 11/17/2024 12:57 PM EDT Pacemaker/Defibrillator?Yes Previous Cancer(s)? Basal cell carcinoma left forearm Previous Radiation?N Lupus/Scleroderma?N On body monitoring device? N Cassia Cantu RN documented in this encounterRiverside [facility] Hospital06-18-2025 Telephone encounter Note * Telephone Encounter - Carolina Perdue - 11/29/2024 4:01 PM EDT SIM rescheduled to 12/08. [facility]06-17-2025 Telephone encounter Note* Telephone Encounter - Lauren Callejas - 11/28/2024 3:22 PM EDT IV start appointment has been added. I called and spoke to Gina Eloy. I reminded her of the CT on 12/07/24. I confirmed his SIM arrival date and time on the . Lauren B PSS [facility]06-17-2025 Miscellaneous Notes* Telephone Encounter - Lauren Callejas - 11/28/2024 3:22 PM EDT IV start appointment has been added. I called and spoke to Gina Eloy. I reminded her of the CT on 12/07/24. I confirmed his SIM arrival date and time on the . Lauren B PSS * Telephone Encounter - Macy Morgan RN - 11/28/2024 3:13 PM EDT Please notify pt and adjust appts. Macy Weyer, RN * Telephone Encounter - Nancy De La Cruz RT(R) - 11/28/2024 2:20 PM EDT Sim rescheduled for 12/08/24 at 10:30 Will need nurse visit for IV start RT Mila(R)(T) * Telephone Encounter - Macy Morgan RN - 11/28/2024 1:28 PM EDT Images from the original note were not included. You Sharon Vásquez, PRITI; Blanquita Hargrove RN1 minute ago (1:26 PM) AW [...] ok to be prior to that. Macy Morgan, RN * Telephone Encounter - Lauren Callejas - 11/28/2024 11:56 AM EDT Nurse visit has been canceled Lauren B PSS * Telephone Encounter - Nancy De La Cruz RT(R) - 11/28/2024 11:52 AM EDT Sim cancelled for 11/30/24; will reschedule once notified when to re add PSS- please cancel nurse visit for 11/30 RT Mila(Mike)(T) * Telephone Encounter - Macy Morgan RN - 11/28/2024 10:24 AM EDT PTs [...] sim approximately 1 week? Please advise. Macy Morgan RN documented in this encounterRiverside [facility] Hospital06-17-2025 Telephone encounter Note * Telephone Encounter - Macy Morgan RN - 11/28/2024 3:13 PM EDT Please notify pt and adjust appts. Macy Morgan RN [facility]06-17-2025 Telephone encounter Note* Telephone Encounter - Nancy De La Cruz RT(R) - 11/28/2024 2:20 PM EDT Sim rescheduled for 12/08/24 at 10:30 Will need nurse visit for IV start RT Mila(R)(T) [facility]06-17-2025 Telephone encounter Note* Telephone Encounter - Macy Morgan RN - 11/28/2024 1:28 PM EDT Images from the original note were not included. Sharon Lou PRITI; Blanquita Hargrove, RN1 minute ago (1:26 PM) AW [...] ok to be prior to that. Macy Morgan, RN [facility]06-17-2025 Telephone encounter Note* Telephone Encounter - Lauren Callejas - 11/28/2024 11:56 AM EDT Nurse visit has been canceled Lauren Brownlee PSS [facility]06-17-2025 Telephone encounter Note* Telephone Encounter - Nancy De La Cruz RT(R) - 11/28/2024 11:52 AM EDT Sim cancelled for 11/30/24; will reschedule once notified when to re add PSS- please cancel nurse visit for 11/30 Nancy De La Cruz RT(R)(T) [facility]06-17-2025 Telephone encounter Note* Telephone Encounter - Macy Morgan, PRITI - 11/28/2024 10:24 AM EDT PTs spouse [...] had his mask off during education. Dr Bolivar pt is scheduled for a CT on 12/07. Do you want to wait until after this to do SIM or should we just postpone sim approximately 1 week? Please advise. Macy Morgan, RN [facility]06-16-2025 Telephone encounter Note* Telephone Encounter - José Antonio Tapia MD - 11/27/2024 6:00 PM EDT Recived outside call Eulalio Porras. Patient presented to [facility] ED w/ 5 days of fever. Positive [...] to call them tomorrow and reschedule hisappointment. [facility] Work Phone: [phone]) [phone] Miscellaneous Notes* Telephone Encounter - José Antonio Tapia MD - 11/27/2024 6:00 PM EDT Recived outside call Eulalio Porras. Patient presented to [facility] ED w/ 5 days of fever. Positive [...] tomorrow and reschedule hisappointment. documented in this encounterRiverside Methodist Hospital06-16-2025 Telephone encounter Note * Telephone Encounter - Nancy Ferrer RN - 11/27/2024 1:43 PM EDT Spoke to patient's , Eloy. Dr Robertson suggested patient go to the nearest emergency room to be evaluated for the fever, chills, & diaphoretic episodes. She is aware patient may need to get bloodwork / blood cultures drawn, and may need to be admitted for IV antibiotics. Eloy is in agreement with this plan. [facility]06-16-2025 Miscellaneous Notes* Telephone Encounter - Nancy Ferrer RN - 11/27/2024 1:43 PM EDT Spoke to patient's , Eloy. Dr Robertson suggested patient go to the nearest emergency room to be evaluated for the fever, chills, & diaphoretic episodes. She is aware patient may need to get bloodwork / blood cultures drawn, and may need to be admitted for IV antibiotics. Eloy is in agreement with this plan. 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 He is running fevers, getting chills,and diuretic episodes She stated the doxycyline is not working [phone] Eloy documented in this encounterRiverside Methodist Hospital06-16-2025 Telephone encounter Note * Telephone Encounter - Lauren Callejas - 11/27/2024 11:52 AM EDT Called and spoke to Jatin and we scheduled him for a CT on 12/07/24 at 8:30 AM Lauren Brownlee PSS [facility]06-16-2025 Miscellaneous Notes* Telephone Encounter - Lauren Callejas - 11/27/2024 11:52 AM EDT Called and spoke to Jatin and we scheduled him for a CT on 12/07/24 at 8:30 AM Lauren Brownlee PSS * Telephone Encounter - Blanquita Hargrove RN - 11/27/2024 11:03 AM EDT Please call pt's and schedule CT head ordered by Dr Wilkerson. Thanks Blanquita Hargrove RN * Telephone Encounter - Rasheed Perez MD - 11/27/2024 10:52 AM EDT [...] advise Blanquita Hargrove RN documented in this encounterRiverside [facility] Hospital06-16-2025 Telephone encounter Note * Telephone Encounter - Blanquita Hargrove RN - 11/27/2024 11:03 AM EDT Please call pt's and schedule CT head ordered by Dr Wilkerson. Thanks Blanquita Hargrove RN [facility] Work Phone: [phone]) [phone] Telephone encounter Note* Telephone Encounter - Rasheed Perez MD - 11/27/2024 10:52 AM EDT I ordered a CT head. Thank you [facility]06-16-2025 Telephone encounter Note* Telephone Encounter - Candice Garay - 11/27/2024 10:37 AM EDT Patient called and stated if something else can be given to patient for his MRSA. He is running fevers, getting chills,and diuretic episodes She stated the doxycyline is not working [phone] Eloy [facility]06-16-2025 Telephone encounter Note* Telephone Encounter - Blanquita Hargrove RN - [...] was negative. Please advise Blanquita Hargrove RN [facility]06-16-2025 NoteLouis [facility]06-16-2025 History of Present illness Narrative* Blanquita Hargrove RN - 11/27/2024 10:19 AM [...] - Cancer Wellness Program Pamphlet. YES - [facility] Tom Information. YES - Patient services information. YES - Pt received My Journey binder in radiation last week. Pt had this with him today and his chemo edmaterial was added to this. Time Spent: 1 hour 10 minutes REFERRAL (RECOMMENDATION): pt aware of services we offer here at our office. Blanquita Hargrove RN Receptionist Secretary Pre Chemo Patient identified by name and date of . YES Confirmed date and time for chemotherapy ? YES TBD Other appointments (labs, imaging) discussed? 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 Encouraged to call humanities instructor who pt is following for MRSA to [...] regarding this. Blanquita Hargrove RN * Eloy Lucas, [facility] - 11/27/2024 9:00 AM EDT Images from the original note were not included. [facility] Department of Pharmacy Oncology Pharmacy Medication Education [...] (15 minute increments) with the patient Eloy Yovanny Lucas documented in this encounterRiverside [facility] Hospital06-16-2025 Telephone encounter Note * Telephone Encounter - Blanquita Hargrove RN - 11/27/2024 9:09 AM EDT Please sign pending antiemetics for pt's education today. Thanks Blanquita Hargrove RN [facility]06-16-2025 Miscellaneous Notes* Telephone Encounter - Blanquita Hargrove RN - 11/27/2024 9:09 AM EDT Please sign pending antiemetics for pt's education today. Thanks Blanquita Hargrove RN documented in this encounterRiverside [facility] Hospital06-16-2025 Miscellaneous Notes* Addendum Note - Eloy Lucas RPh - 11/27/2024 9:00 AM EDTAddended by: ELOY LUCAS on: 11/27/2024 11:45 AM Modules accepted: Orders * Addendum Note - Eloy Lucas RPh - 11/27/2024 9:00 AM EDTAddended by: ELOY LUCAS on: 11/27/2024 11:58 AM Modules accepted: Orders documented in this encounterRiverside [facility] Hospital06-16-2025 Note* Addendum Note - Eloy Lucas RPh - 11/27/2024 9:00 AM EDTAddended by: ELOY LUCAS on: 11/27/2024 11:45 AM Modules accepted: Orders [facility]06-16-2025 Note* Addendum Note - Eloy Lucas [facility] - 11/27/2024 9:00 AM EDTAddended by: ELOY LUCAS on: 11/27/2024 11:58 AM Modules accepted: Orders [facility]06-16-2025 NoteLouis [facility]06-12-2025 Telephone encounter Note* Telephone Encounter - Carolina Perdue - 11/23/2024 1:46 PM EDT Per appointments, pt's SIM was rescheduled to 11/30. Carolina Perdue [facility]06-12-2025 Telephone encounter Note* Telephone Encounter - Blessing Dougherty - 11/23/2024 12:33 PM EDT I spoke with patient & let him know his SIM was rescheduled to 11/30/2024 & to arrive by 8:30 am. CLAY Ramos [facility]06-12-2025 Miscellaneous Notes* Telephone Encounter - Blessing Dougherty - 11/23/2024 12:33 PM EDT I spoke with patient & let him know his SIM was rescheduled to 11/30/2024 & to arrive by 8:30 am. CLAY Ramos * Telephone Encounter - Blessing Dougherty - 11/23/2024 12:32 PM EDT Added nurse visit for IV start on 11/30/2024 at 8:45 am. Blessing Dougherty, PSS * Telephone Encounter - Nancy De La Cruz RT(R) - 11/23/2024 12:26 PM EDT Sim re- scheduled for 11/30/24 at 9:00 am Please add nurse visit for 8:45 for IV start, notify patient of arrival time of 8:30 Nancy Hussein RT(R)(T) * Telephone Encounter - Cassia Cantu RN - 11/23/2024 12:07 PM EDT PSS/RT: Dr. Lizama would like today's SIM rescheduled to next week any day 11/29-12/01. I notified Eloy, pt's , of the above and our office will call her back to reschedule. Please call pt's with new appt. She would like to keep chemo ed as scheduled on 11/[address] Lizama will be in [place] on 11/27 and 11/28. Cassia Cantu RN * Telephone Encounter - Cassia Cantu RN - 11/23/2024 10:21 AM EDT Eloy called back and current temp is 98.9, with Tylenol 1, 00mg at 8:00 a.m. Cassia Cantu RN * Telephone Encounter - Cassia Cantu RN - 11/23/2024 10:11 AM EDT I called and spoke with Eloy and [...] this a.m.? PSS: Please schedule PFT's at [facility] per patient request. These need scheduled prior to radiation new start. Thanks Cassia Cantu RN * Telephone Encounter - Rasehed Perez MD - 11/23/2024 9:47 AM EDT No need of PFTs and CT chest. * Telephone Encounter - Ileana Bear RN - 11/23/2024 9:43 AM EDT Foundation labs will need to be drawn in our office. Will defer the other questions to the providers. Ileana Bear RN * Telephone Encounter - Cassia Cantu RN - 11/23/2024 9:23 AM EDT Eloy, pt's spouse, left a message stating Jatin had bronchoscopy and sputum culture and will be starting doxycycline 100mg BID x 7 days today for MRSA. She is said authorization for PFT's is still pending but would like them done at [facility]-no orders in [facility]. She also asked about a CT chest with IV contrast being ordered-no orders in [facility]. She said he is to have labs per Dr. Perez and is wondering if he can have those drawn at [facility] as well. Patient is currently scheduled for SIM today with Dr. Lizama. Please advise: Does patient need PFT's and/or CT chest? Can patient have Foundation one and other ordered labs at [facility] or do they need done at [facility]? Should SIM continue today or be rescheduled d/t MRSA? Thanks Cassia Cantu, RN documented in this encounterR[facility]06-12-2025 Telephone encounter Note * Telephone Encounter - Blessing Dougherty - 11/23/2024 12:32 PM EDT Added nurse visit for IV start on 11/30/2024 at 8:45 am. Blessing Dougherty PSS [facility]06-12-2025 Telephone encounter Note* Telephone Encounter - Nancy De La Cruz RT(R) - 11/23/2024 12:26 PM EDT Sim re- scheduled for 11/30/24 at 9:00 am Please add nurse visit for 8:45 for IV start, notify patient of arrival time of 8:30 Nancy Hussein RT(R)(T) [facility]06-12-2025 Telephone encounter Note* Telephone Encounter - Cassia Cantu RN - 11/23/2024 12:07 PM EDT PSS/RT: Dr. Lizama would like today's SIM rescheduled to next week any day 11/29-12/01. I notified Eloy, pt's , of the above and our office will call her back to reschedule. Please call pt's with new appt. She would like to keep chemo ed as scheduled on 11/[address] Lizama will be in [place] on 11/27 and 11/28. Cassia Cantu RN [facility]06-12-2025 Telephone encounter Note* Telephone Encounter - Cassia Cantu RN - 11/23/2024 10:21 AM EDT Eloy called back and current temp is 98.9, with Tylenol 1, 00mg at 8:00 a.m. Cassia Cantu RN [facility]06-12-[facility] Telephone encounter Note* Telephone Encounter - Cassia Cantu RN - 11/23/2024 10:11 AM EDT I called and spoke with Eoly and notified her Dr. Lizama would like [...] this a.m.? PSS: Please schedule PFT's at [facility] per patient request. These need scheduled prior to radiation new start. Thanks Cassia Cantu RN [facility]06-12-2025 Telephone encounter Note* Telephone Encounter - Rasheed Perez MD - 11/23/2024 9:47 AM EDT No need of PFTs and CT chest. [facility] Work Phone: 1(272) 432-417306-12-2025 Telephone encounter Note* Telephone Encounter - Ileana Bear, PRITI - 11/23/2024 9:43 AM EDT Foundation labs will need to be drawn in our office. Will defer the other questions to the providers. Ileana Bear, RN [facility] Work Phone: 1(559) 359-811406-12-2025 Telephone encounter Note* Telephone Encounter - Janell An - 11/23/2024 9:33 AM EDT Patient has a string cough but unable to cough up mucous. Patient would like saline for nebulizer sent to [facility] at [address] [place] [address] in [place] [address] [facility]06-12-2025 Miscellaneous Notes* Telephone Encounter - Janell An - 11/23/2024 9:33 AM EDT Patient has a string cough but unable to cough up mucous. Patient would like saline for nebulizer sent to [facility] at [address] [place] [address] [place] [address] documented in this encounterRiverside [facility] Hospital06-12-2025 Telephone encounter Note * Telephone Encounter - Cassia Cantu RN - 11/23/2024 9:23 AM EDT Eloy, pt's spouse, left a message stating Jatin had bronchoscopy and sputum culture and will be starting doxycycline 100mg BID x 7 days today for MRSA. She is said authorization for PFT's is still pending but would like them done at [facility]-no orders in [facility]. She also asked about a CT chest with IV contrast being ordered-no orders in [facility]. She said he is to have labs per Dr. Perez and is wondering if he can have those drawn at [facility] as well. Patient is currently scheduled for SIM today with Dr. Lizama. Please advise: Does patient need PFT's and/or CT chest? Can patient have Foundation one and other ordered labs at [facility] or do they need done at [facility]? Should SIM continue today or be rescheduled d/t MRSA? Thanks Cassia Canut RN [facility]06-12-2025 Progress note* Result Encounter Note - Alexandre Robertson MD [...] food/ snack andlight sensitivity. All questions answered. [facility]06-12[facility] Miscellaneous Notes* Result Encounter Note - Alexandre Robertson MD [...] sensitivity. All questions answered. documented in this encounterRiverside Methodist Hospital06-11-2025 History of Present illness Narrative* Shola Milan, 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 FLATBED - 11/22/2024 1:00 PM EDT Jatin Koch II Date of visit: 11/22/2024 Date of : 1960 Age: 64 y.o. Patient Active Problem List Diagnosis AV block BPH with urinary obstruction Arthritis Gout Squamous cell lung cancer ([facility]) Syncope Allergies Allergen Reactions Bactrim [Sulfamethoxazole-Trimethoprim] Codeine [...] Patient presents with Follow-up ov-wound ck-s/p imp 5-29 w/jzl-scheduled w/pt History of Present Illness Jatin Koch II is here today with his spouse on initial wound check post pacemaker implant for intermittent symptomatic complete heart block. He was recently seen at [facility] warranting pacer implant. He was seen at [place] ER due to recurrent syncope and EKG findings of intermittent complete heart block. Transferred to [facility] after evaluation at the [place] office. He is currently being treated for lung CA right lower lobe [facility]. Also treated for hypertension. Device implant 11/09/2024 Dr. Veloz. He had had scheduled outpatient bronchoscopy through [facility] on the . His device was [...] evaluated in the ER. He lives in [facility]. He is scheduled for device check again in a couple weeks. I will see him at that time Past Medical History: Diagnosis Date Arthritis Hypertension Lung cancer ([facility]) No data recorded No data recorded No data recorded Past Surgical History: Procedure Laterality Date EP Invasive DC PPM Left 11/09/2024 Performed by Robert Veloz MD at [facility] (EP) SKIN BIOPSY basal cell carcinoma removed from left anabaptism TONSILLECTOMY TURP / TRANSURETHRAL INCISION / DRAINAGE [...] the morning. NON FORMULARY Sig: Med Name: MEIR Immunity support bid Medications Discontinued During This Encounter Medication Reason cetirizine (ZyrTEC) 10 mg tablet Therapy completed levoFLOXacin (LEVAQUIN) 750 mg tablet Therapy completed predniSONE (DELTASONE) 10 mg tablet Therapy completed IMPRESSIONS/PLAN 1. AV block 2. Squamous cell carcinoma of lung, unspecified laterality ([facility]) 1. Intermittent complete heart block symptomatic with syncopal episodes s/p [employer] dual-chamber pacemaker 11/09/2024. Elevated atrial threshold noted on device check [facility] 11/20/2024. Repeat device check today:, x-ray [...] PCP: CLINT PRINCE Referring Physician: CLINT Prince [address] [place] [address] [place] [address] CLINT Chowdary 11/22/24 1403 documented in this encounterJoint Township [facility]06-11-2025 History of Present illness Narrative* Reuben Reyna MD - 11/22/2024 1:00 PM EDT I agree with the findings in the scanned document. documented in this encounterJoint Township District Memorial Hospital06-09-2025 Telephone encounter Note* Telephone Encounter - Carolina Perdue - 11/20/2024 2:16 PM EDT SIM scheduled for 11/23 -- Education w/ Blanquita scheduled on 11/30 (Tiff was out on the ). Patient notified of ed appt. Carolina Perdue [facility]06-09-2025 NoteLouis Stokes Cleveland [facility]06-09-2025 Telephone encounter Note* Telephone Encounter - Carolina Cooney RN - 11/20/2024 10:48 AM EDT Pt recently had PPM implanted 11/09/[address] Robert Veloz's office (patient's implanting EP doctor) to notify clinic about the RA lead'sthreshold is at 4.5V @ 0.4ms. Was able to speak to device clinic and faxed report over to [phone] [facility]06-09-2025 Miscellaneous Notes* Telephone Encounter - Carolina Cooney RN - 11/20/2024 10:48 AM EDT Pt recently had PPM implanted 11/09/[address] Robert Veloz's office (patient's implanting EP doctor) to notify clinic about the RA lead'sthreshold is at 4.5V @ 0.4ms. Was able to speak to device clinic and faxed report over to [phone] documented in this encounterRiverside Methodist Hospital06-09-2025 Telephone encounter Note * Telephone Encounter - Carlos Funez - 11/20/2024 8:03 AM EDT Spoke to Patient, arrival time of 230pm on 11/23 and no special instructions [facility]06-09-2025 Miscellaneous Notes* Telephone Encounter - Carlos Funez - 11/20/2024 8:03 AM EDT Spoke to Patient, arrival time of 230pm on 11/23 and no special instructions * Telephone Encounter - Cassia Cantu RN - 11/17/2024 4:00 PM EDT Patient states he has already met with the installation supervisor and has upcoming follow up. Cassia Cantu RN * Telephone Encounter - Zaida Davis Tech - 11/17/2024 3:10 PM EDT PSS- I scheduled Lung Sim on 11/23/2024 at 3:00pm Nurse visit at 2:45pm for IV contrast Arrival time of 2:30pm, No special instructions. Thank you, Zaida Monsalve * Telephone Encounter - Cassia Cantu RN - 11/17/2024 2:33 PM EDT PSS/RT: please schedule [facility] 11/23 treating lung with IV contrast, esophageal contrast, 4DCT Consent signed Needs nurse appt for IV start day of [facility] Nurse ed today Liaison Engineer consult(order pending signature) Thanks Cassia Cantu RN documented in this encounterRiverside Methodist Hospital06-06-2025 NoteLouis [facility]06-06-2025 NoteLouis [facility]06-06-2025 History of Present illness Narrative* Cassia Cantu RN - 11/17/2024 4:01 PM EDT Radiation Therapy - Patient Education Note PATIENT NAME: Jatin Koch II PATIENT November 17, 2024 [facility] FACILITY/LOCATION: [facility] READINESS TO LEARN Cognitive Ability: [...] and family verbalized understanding of radiation treatments, sideeffects, OTV, and transportation. Follow-up plan: Patient instructed [...] need for social work, van service, and installation supervisor. Patient has an Onbody or Implanted device: Yes, person notified was: Dr. Lizama and team Signed by: Cassia Cantu RN documented in this encounterRiverside Methodist Hospital06-06-2025 Telephone encounter Note * Telephone Encounter - Cassia Cantu RN - 11/17/2024 4:00 PM EDT Patient states he has already met with the installation supervisor and has upcoming follow up. Cassia Cantu RN [facility]06-06-2025 Telephone encounter Note* Telephone Encounter - Zaida Davis Tech - 11/17/2024 3:10 PM EDT PSS- I scheduled Lung Sim on 11/23/2024 at 3:00pm Nurse visit at 2:45pm for IV contrast Arrival time of 2:30pm, No special instructions. Thank you, Zaida Monsalve [facility] Work Phone: [phone] Telephone encounter Note* Telephone Encounter - Carolina Perdue - 11/17/2024 3:01 PM EDT Images from the original note were not included. Will schedule once RTC date is deteremined for XRT. Carolina Perdue [facility]06-06-2025 Instructions* Patient Instructions* Rasheed Perez MD - 11/17/2024 2:41 PM EDT Chemo teach for weekly carbo taxol Schedule chemo in 2 weeks on or after the start day of radiation F/u in 2 weeks documented in this encounterRiverside Methodist Hospital06-06-2025 Telephone encounter Note * Telephone Encounter - Cassia Cantu RN - 11/17/2024 2:33 PM EDT PSS/RT: please schedule [facility] 11/23 treating lung with IV contrast, esophageal contrast, 4DCT Consent signed Needs nurse appt for IV start day of SIM Nurse ed today Liaison Engineer consult(order pending signature) Thanks Cassia Cantu RN [facility]06-06-2025 History of Present illness Narrative* Rasheed Perez MD - 11/17/2024 2:00 PM EDT Images from the original note were not included. PATIENT NAME: Jatin Koch II CLINIC NO.: [id number] ATTENDING PHYSICIAN: Rasheed Perez MD DATE OF SERVICE: 11/17/[address] Chip Gary [place] [address] thank you for referring Jatin Koch II [...] pk/day for 40yrs. 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 C/o hemoptysis. C/o [...] do concurrent chemoradiation therapy followed by maintenancedurvalumab PLAN: 1. Malignant neoplasm of lower lobe [...] in [address] Chip Carbajal [address] [place] [address] thank you for allowing me to participate in [facility], if there are any questions or concerns please do not hesitate to contact me at the number below. I spent a total of 20 minutes on the date of the service which included preparing to see the patient, [id number] patient care, completing clinical documentation, obtaining and/or reviewing separately obtained history, performing a medically appropriate examination, counseling and educating the pat ient/family/caregiver, ordering medications, tests, or procedures, communicating with other HCPs (not separately reported), independently interpreting results (not separately reported), communicatingresults to the patient/family/caregiver, and care coordination (not separately reported). Rasheed Perez MD. Hematology/Medical Oncology [facility] [place] [address] [phone] CC: documented in this encounterRiverside Methodist Hospital06-06-2025 NoteLouis Stokes Cleveland [facility] Center06-06-2025 Miscellaneous Notes* Telephone Encounter - Josseline Stewart RN - 11/17/2024 1:35 PM EDT [facility] called in asking if pt is PPM dependent. New PPM implanted 11/09/24. Planning radiation tx to his lung. No treatment plan yet. First device check scheduled 12/07/24. Not dependent at implant. Asked to call us back when radiation plans are known. documented in this encounterJoint Township District Memorial Hospital06-06-2025 Telephone encounter Note* Telephone Encounter - Josseline Stewart RN - 11/17/2024 1:35 PM EDT [facility] called in asking if pt is PPM dependent. New PPM implanted 11/09/24. Planning radiation tx to his lung. No treatment plan yet. First device check scheduled 12/07/24. Not dependent at implant. Asked to call us back when radiation plans are known. [facility]06-06-2025 Telephone encounter Note* Telephone Encounter - Cassia Cantu RN - 11/17/2024 1:33 PM EDT I called [facility] pacemaker clinic to verify if Jatin is pacemaker dependent or not. Josseline, in the device clinic, said his pacemaker was just placed 11/09/24 and his first device check is scheduled for 12/07/24. [facility] device clinic phone # [phone]. Thanks Cassia Cantu RN [facility]06-06-2025 Miscellaneous Notes* Telephone Encounter - Cassia Cantu RN - 11/17/2024 1:33 PM EDT I called [facility] pacemaker clinic to verify if Jatin is pacemaker dependent or not. Josseline, in the device clinic, said his pacemaker was just placed 11/09/24 and his first device check is scheduled for 12/07/24. [facility] device clinic phone # [phone]. Thanks Cassia Cantu RN documented in this encounterRiverside Methodist Hospital06-06-2025 NoteLouis Stokes [facility]06-04-2025 Instructions* Patient Instructions* Alexandre Robertson MD - 11/15/2024 11:02 AM EDT [...] and until procedure is done Please call [phone] for additional information prior to bronchoscopy if you have questions You will need someone to bring you to this procedure and stay for the entire duration of procedure as you cannot drive home after procedure documented in this encounterRiverside Methodist Hospital06-04-2025 History of Present illness Narrative* Alexandre Robertson MD - 11/15/2024 11:00 AM EDT INTERVENTIONAL PULMONARY MEDICINE CONSULTATION PLEASE DO NOT REMOVE FROM THE CHART OR MODIFY PRINTED COPY Patient Name: Jatin Koch II PRIMARY CARE PHYSICIAN: Carlos Collins APRN.TRUCK DRIVER FLATBED REFERRING PHYSICIAN: Dr. 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 My final recommendations/evaluation will be communicated back to the requesting physician by way of shared medical record or letter via US mail. Recording using Beat[employer] software for draft documentation of the visit was discussed with the patient/authorized order entry representative; all questions welcomed and answered. Patient/authorized order entry representative agreed to proceed CHIEF COMPLAINT: Bronchial obstruction with tumor HISTORY OF PRESENT ILLNESS: Jatin Koch II is a 64 year old male with known right lung squamous cell carcinoma who is here to discuss next steps with the obstruction. Jatin presents with a chronic dry cough that began in June. [facility] and was evaluated for COVID-19 and influenza A and B, but the cough persisted. Due to the lack of improvement, his scheduled an appointment with a humanities instructor, who ordered a CT scan with contrast. During this period, Jatin's SpO2 dropped to 88%, prompting a visit tot ER, where a CT scan with contrast [...] shows, usually we will be able to removethe stent if the tumor shows response to [...] a family/ friend with them as their driver's education instructor post anesthesia. All questions were answered to the best of my ability. Written and verbal health teaching given to patient, patient verbalizes understanding and agrees with treatment plan. Electronically Signed: Alexandre Robertson MD November 15, 2024 12:06 PM documented in this encounterRiverside Methodist Hospital06-04-2025 NoteLouis Stokes Cleveland [facility]05-28-2025 History of Present illness Narrative* Maritza Best MD - 11/08/2024 2:30 PM EDT Jatin Koch II Date of visit: 11/08/2024 [...] for pain.(Patient not taking: Reported on 11/08/2024) PEPSIN/BLESSING/OXBILE/PANCREAT/BET ([id number]-[id number] ORAL) Take by mouth. (Patient not taking: [...] Chief Complaint Patient presents with 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 LOW HR ISSUES, RECENTLY DIAGNOSED WITH LUNG CANCER RIGHT LOWER LOBE, SCHED W/ History of Present Illness Patient with history of recent diagnosis of right lower lung mass measures 7.1 by 4.8. With involvement of the lymph node, history of diverticulitis, Patient was seen at [facility] following syncope hardware with about 40 [...] BIOPSY basal cell carcinoma removed from left anabaptism TONSILLECTOMY TURP / TRANSURETHRAL INCISION / DRAINAGE [...] the emergency room to be transferred to [facility] for pacemaker evaluation to suggest 2D echo and nuclear stress test Follow-up with me in 6 months if needed TODAYS ORDERS Orders Placed This Encounter Procedures POCT EKG FOLLOW UP Return in about 6 months (around 05/11/2025). PCP: CARLOS COLLINS APRN-TRUCK DRIVER FLATBED Referring Physician: Alina Ragland MD [address] [place] [phone] documented in this encounterJoint Township District Memorial Hospital05-28-2025 Telephone encounter Note* Telephone Encounter - Mamie Zepeda MA - 11/08/2024 11:[address] [facility] paperwork signed and original left at lead front desk agent for Eloy to meat pickler on Wednesday. Original placed in scanning. Mamie Zepeda MA [facility]05-28-2025 Miscellaneous Notes* Telephone Encounter - Mamie Benson MA - 11/08/2024 11:09 AM EDT [place] paperwork signed and original left at lead front desk agent for Eloy to meat pickler on Wednesday. Original placed in scanning. Mamie Zepeda MA * Telephone Encounter - Oskar Freeman MA - 11/07/2024 3:[address] [facility] paperwork completed for family member has been completed and placed in folder to be signed. Oskar Freeman MA documented in this encounterRiverside Methodist Hospital05-27-2025 Miscellaneous Notes* Telephone Encounter - Brittany Marie RN - 11/07/2024 4:25 PM EDT Pt was in ER at [facility] twice over the weekend. First pt diagnosed with vertigo and sent homeon Meclizine. Pt became bradycardic and was then admitted to [place] with bradycardia and pneumonia. Pt discharged home on Levaquin, taper prednisone and continues meclizine as needed. He is on a holter monitor and sees [facility] cardiology tomorrow. Pt scheduled for AV/LILIAM WednesdayNovember 10. just wanted providers updated. Reyna: please obtain records AV/LILIAM: BREANNA Marie RN documented in this encounterRiverside Methodist Hospital05-27-2025 Telephone encounter Note * Telephone Encounter - Brittany Marie RN - 11/07/2024 4:25 PM EDT Pt was in ER at [facility] twice over the weekend. First pt diagnosed with vertigo and sent homeon Meclizine. Pt became bradycardic and was then admitted to [place] with bradycardia and pneumonia. Pt discharged home on Levaquin, taper prednisone and continues meclizine as needed. He is on a holter monitor and sees [facility] cardiology tomorrow. Pt scheduled for AV/LILIAM WednesdayNovember 10. just wanted providers updated. Reyna: please obtain records AV/LILIAM: BREANNA Marie RN [facility]05-27-2025 Telephone encounter Note* Telephone Encounter - Oskar Freeman MA - 11/07/2024 3:[address] [facility] paperwork completed for family member has been completed and placed in folder to be signed. Oskar Freeman MA [facility]05-27-2025 Miscellaneous Notes* Telephone Encounter - Victoria Collado CMA - 11/07/2024 10:51 AM EDT Called patient to remind them to bring their most current copy of their medication list with them to their appt. Patient verbalizes understanding. documented in this encounterJoint Township District Memorial Hospital05-27-2025 Telephone encounter Note* Telephone Encounter - Victoria Collado CMA - 11/07/2024 10:51 AM EDT Called patient to remind them to bring their most current copy of their medication list with them to their appt. Patient verbalizes understanding. [facility]05-20-2025 NoteLouis [facility]05-19-2025 Note [facility]05-16-2025 Telephone encounter Note* Telephone Encounter - Janell An - 10/27/2024 10:19 AM EDT Referring Physician: Dr. Rasheed Perez Address: [address] Phone #: [phone] Fax #: [phone] Reason for referral: Malignant neoplasm of lower lobe of right lung Is there CareEverywhere Records: Yes Is there Imaging available: Yes - Recent CT: Yes - Date of CT: 10/18/2024 [facility]05-16-2025 Miscellaneous Notes* Telephone Encounter - Janell An - 10/27/2024 10:19 AM EDT Referring Physician: Dr. Rasheed Perez Address: [facility] Mae Phone #: [phone] Fax #: [phone] Reason for referral: Malignant neoplasm of lower lobe of right lung Is there CareEverywhere Records: Yes Is there Imaging available: Yes - Recent CT: Yes - Date of CT: 10/18/2024 [facility]* Addendum Note - Rasheed Perez MD - 10/27/2024 9:57 AM EDTAddended by: RASHEED PEREZ on: 10/27/2024 09:57 AM Modules accepted: Orders [facility] Miscellaneous Notes* Addendum Note - Rasheed Perez MD - 10/27/2024 9:57 AM EDTAddended by: RASHEED PEREZ on: 10/27/2024 09:57 AM Modules accepted: Orders documented in this encounterR[facility]25 Instructions* Patient Instructions* Rasheed Perez MD - 10/27/2024 9:26 AM EDT Refer to radiation oncology Refer to interventional pulmonology Ordered MRI brain F/u in 2 weeks documented in this encounter[facility] History of Present illness Narrative* Rasheed Perez MD - 10/27/2024 9:00 AM EDT Images from the original note were not included. PATIENT NAME: Jatin Koch II CLINIC NO.: [id number] ATTENDING PHYSICIAN: Rasheed Perez MD DATE OF SERVICE: October 27, [address] Chip Carbajal [address] [address] thank you for referring Jatin Koch II for an opinion regarding Lung cancer. CHIEF COMPLAINT: Lung cancer HPI: Jatin Koch II is a 63 year old year old male with PMH of HTN referred to us for lung cancer. CT chest : PET scan: C/o cough and lost 30lbs. Quit smoking in 2017. Smoked 1 pk/day for 40yrs. 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 C/o hemoptysis. C/o [...] Ht 169.5 cm (5' 6.73 ) Wt 86.7kg (191 lb 2.2 oz) SpO2 96% BMI [...] [address] Chip Carbajal [address] [address] thank you for allowing me to participate in [facility] [place], if there are any questions or concerns please do not hesitate to contact me at the number below. I spent a total of 60 minutes on the date of the service which included preparing to see the patient, [id number] patient care, completing clinical documentation, obtaining and/or reviewing separately obtained history, performing a medically appropriate examination, counseling and educating the pat ient/family/caregiver, ordering medications, tests, or procedures, communicating with other HCPs (not separately reported), independently interpreting results (not separately reported), communicatingresults to the patient/family/caregiver, and care coordination (not separately reported). Rasheed Perez MD. Hematology/Medical Oncology [facility] [place] [address] [phone] CC: * Mamie Zepeda MA - 10/27/2024 8:59 AM EDT Pomario has an irritating cough but has not coughed up blood since Wednesday, Low grade started Wednesday 102.2 chills on Wednesday (he does not take temp). He has been taking Tylenol to help minimize temps. Mamie Zepeda MA documented in this encounterR[facility]05-[facility]25 NoteLouis [facility] NoteLouis [facility]04-[facility]-2025 Miscellaneous Notes * Telephone Encounter - Dara Vásquez MA - 02/15/2025 12:52 PM EDT Brian Koch (son) called the fax copy of his [facility] paperwork never went through. So,he is requesting that his paperwork be sent through email at [email or web address] and to [email or web address]. Done with success. Dara Vásquez MA documented in this encounterR[facility]01-16-[facility]24 Evaluation + Plan note Diagnostic Tests Pending * PSA Screen, Total 06/29/23 [facility] 01-16-2024 Hospital Discharge instructions Patient Education 06/29/2023 09:10:43 Kidney Stones, Aatb-xe-Nyuo Kidney Stones Kidney stones are rock-like masses [...] Follow these instructions at home: Medicines Take xwao-sao-lycqqlx and prescription medicines only as told by [...] provider. Document Revised: 02/02/2022 Document Reviewed: 02/02/2022 LOOK[employer] Patient Education 2022 [employer]. Follow Up Care 06/23/2022 09:07:35 With:VICTORIA FLORES PA-C, URL Address: [address] 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)- Primary Bronchial obstruction Other diseases of trachea and bronchus Bronchiolar disease Other diseases of trachea and bronchus [facility] Diagnosis Malignant neoplasm of lower lobe of right lung (HCC)- Primary Bronchiolar disease Other diseases of trachea and bronchus [facility]* Diagnosis AV block- Primary Unspecified atrioventricular block Squamous cell carcinoma of lung, unspecified laterality (CMS-HCC) Pacemaker Cardiac pacemaker in situ [facility] this [facility] [place] [facility]* Diagnosis Pacemaker- [place]- Primary Cardiac pacemaker in situ [facility] [place] [facility]* Diagnosis Pneumonia of right lower lobe due to methicillin resistant Staphylococcus aureus (MRSA) (HCC)- Primary [facility] [place] [facility]* Diagnosis Malignant neoplasm of lower lobe of right lung (HCC)- Primary [facility] [place] [facility]* Diagnosis Malignant neoplasm of lower lobe of right lung (HCC)- Primary [facility] [place] [facility]* Diagnosis Malignant neoplasm of lower lobe of right lung (HCC)- Primary [facility] Diagnosis Malignant neoplasm of lower lobe of right lung (HCC)- Primary [facility] Diagnosis Malignant neoplasm of lower lobe of right lung (HCC) [facility] Diagnosis Pacemaker- Primary Cardiac pacemaker in situ AV block Unspecified atrioventricular block Squamous cell carcinoma of lung, unspecified laterality (CMS-HCC) documented [facility] [place] [facility]* Diagnosis Pacemaker- Primary Cardiac pacemaker in situ documented in this encounter [facility] [place] [facility]* Diagnosis Malignant neoplasm of lower lobe of right lung (HCC)- Primary [facility] Diagnosis Pre-op testing Preoperative examination, unspecified documented [facility] [place] [facility]* Diagnosis Malignant neoplasm of lower lobe of right lung (HCC)- Primary [facility]* Diagnosis Muscle soreness- Primary Mylagia and myositis, unspecified [facility]* Diagnosis Malignant neoplasm of lower lobe of right lung (HCC)- Primary [facility] Diagnosis Malignant neoplasm of lower lobe of right lung (HCC)- Primary [facility] Diagnosis Malignant neoplasm of lower lobe of right lung (HCC)- Primary [facility] Diagnosis Malignant neoplasm of lower lobe of right lung (HCC)- Primary [facility] Diagnosis Malignant neoplasm of lower lobe of right lung (HCC)- Primary [facility] Diagnosis Malignant neoplasm of lower lobe of right lung (HCC)- Primary [facility] Diagnosis Malignant neoplasm of lower lobe of right lung (HCC)- Primary [facility] Diagnosis Malignant neoplasm of lower lobe of right lung (HCC)- Primary [facility] Diagnosis Malignant neoplasm of lower lobe of right lung (HCC)- Primary [facility] Diagnosis Malignant neoplasm of lower lobe of right lung (HCC)- Primary [facility] Diagnosis Malignant neoplasm of lower lobe of right lung (HCC)- Primary [facility] Diagnosis Malignant neoplasm of lower lobe of right lung (HCC)- Primary [facility]* Diagnosis Malignant neoplasm of lower lobe of right lung (HCC)- Primary documented [facility] [place] [facility]* Diagnosis Malignant neoplasm of lower lobe of right lung (HCC)- Primary [facility]* Diagnosis Malignant neoplasm of lower lobe of right lung (HCC)- Primary [facility]* Diagnosis Palliative care by specialist- Primary Malignant neoplasm of lower lobe of right lung (HCC) Neoplasm related pain Neoplasm related pain (acute) (chronic) Constipation due to opioid therapy Chronic cough Cough SOB (shortness of breath) Shortness of breath Anorexia Rhinorrhea Other diseases of nasal cavity and sinuses [facility]* Diagnosis Muscle soreness- Primary Mylagia and myositis, unspecified [facility]* Diagnosis Malignant neoplasm of lower lobe of right lung (HCC)- Primary [facility]* Diagnosis Dehydration- Primary Malignant neoplasm of lower lobe of right lung (HCC) [facility]* Diagnosis Dehydration- Primary [facility]* Diagnosis Malignant neoplasm of lower lobe of right lung (HCC)- Primary [facility]* Diagnosis Fever in adult- Primary Fever, unspecified [facility]* Diagnosis UTI symptoms- Primary Other symptoms involving urinary system Fever in adult Fever, unspecified documented [facility] [place] [facility]* Diagnosis Malignant neoplasm of lower lobe of right lung (HCC)- Primary documented in this [facility] [place] [facility]* Diagnosis Fever in adult Fever, unspecified [facility]* Diagnosis Fever in adult Fever, unspecified documented in this [facility] [place] [facility]* Diagnosis Malignant neoplasm of lower lobe of right lung (HCC)- Primary documented [facility] [place] [facility]* Diagnosis Malignant neoplasm of lower lobe of right lung (HCC)- Primary [facility] [place] [facility]* Diagnosis Muscle soreness- Primary Mylagia and myositis, unspecified documented in this [facility] [place] [facility]* Diagnosis Malignant neoplasm of lower lobe of right lung (HCC)- Primary documented in this [facility] [place] [facility]* Diagnosis Malignant neoplasm of lower lobe of right lung (HCC)- Primary [facility] in [facility] [place] [facility]* Diagnosis Malignant neoplasm of lower lobe of right lung (HCC)- Primary documented in this [facility] [place] [facility]* Diagnosis Malignant neoplasm of lower lobe of right lung (HCC)- Primary documented in this [facility] [place] [facility]* Diagnosis Malignant neoplasm of lower lobe of right lung (HCC)- Primary documented in this [facility] [place] [facility]* Diagnosis Malignant neoplasm of lower lobe of right lung (HCC)- Primary documented in this [facility] [place] [facility]* Diagnosis Malignant neoplasm of lower lobe of right lung (HCC)- Primary documented in [facility] [place] [facility]* Diagnosis Muscle soreness- Primary Mylagia and myositis, unspecified documented in this [facility] [place] [facility]* Diagnosis Malignant neoplasm of lower lobe of right lung (HCC)- Primary documented [facility] [place] [facility]* Diagnosis Malignant neoplasm of lower lobe of right lung (HCC)- Primary documented in [facility] [place] [facility]* Diagnosis Malignant neoplasm of lower lobe of right lung (HCC)- Primary [facility]* Diagnosis Dehydration- Primary documented in this [facility] [place] [facility]* Diagnosis Malignant neoplasm of lower lobe of right lung (HCC)- Primary [facility] [place] [facility]* Diagnosis Malignant neoplasm of lower lobe of right lung (HCC)- Primary [facility] encounter [facility] [place] [facility]* Diagnosis Malignant neoplasm of lower lobe of right lung (HCC)- Primary [facility] this encounter [facility] [place] [facility]* Diagnosis Pacemaker- [place]- Primary Cardiac pacemaker in situ documented in this encounter [facility] [place] [facility]* Diagnosis AV block- Primary Unspecified atrioventricular block Pacemaker Cardiac pacemaker in situ Squamous cell carcinoma of lung, unspecified laterality (CMS-HCC) documented in this encounter [facility] [place] [facility]* Diagnosis Malignant neoplasm of lower lobe of right lung (HCC)- Primary documented in this encounter [facility] note* Diagnosis Malignant neoplasm of lower lobe of right lung (HCC)- Primary [facility] this encounter [facility] [place] [facility]* Diagnosis Malignant neoplasm of lower lobe of right lung (HCC)- Primary Dehydration Dehydration- Primary documented [facility] this encounter [facility] [place] [facility]* Diagnosis Dehydration- Primary Dehydration- Primary documented in this encounter [facility] [place] [facility]* Diagnosis Malignant neoplasm of lower lobe of right lung (HCC)- Primary [facility] [place] [facility]* Diagnosis Malignant neoplasm of lower lobe of right lung (HCC)- Primary Encounter for antineoplastic chemotherapy Chemotherapy-induced fatigue Weakness Other malaise and fatigue Anemia due to antineoplastic chemotherapy Antineoplastic chemotherapy induced anemia Protein-calorie malnutrition, unspecified severity (HCC) documented in this encounter [facility] [place] [facility]* Diagnosis Rhinorrhea Other diseases of nasal cavity and sinuses documented in this encounter [facility] [place] [facility]* Diagnosis Malignant neoplasm of lower lobe of right lung (HCC)- Primary documented in this encounter [facility] [place] [facility]* Diagnosis Malignant neoplasm of lower lobe of right lung (HCC)- Primary [facility] Narrative No data available for this section [facility] Hospital Discharge instructions No data available for this section [facility] InstructionsNot on filedocumented in this [...] available for this section [facility] reason for referral (narrative)No reason for referral information availableTogus Va Medical [facility] Work Phone: Reason for visit Narrative* Auth/Cert (Routine) Specialty Diagnoses / Procedures Referred By Beti montiel Referred To Contact ADMITTING 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] Procedures [facility] INCL FLUOR GDNCE DX W/CELL WASHG SPX BRONCHOSCOPY FLEXIBLE ADULT Admitting [address] [place] [address] Referral ID Status Reason Start Date Expiration Date Visits Re quested Visits Authorized [id number] 1 1 [facility] for visit Narrative* Outpatient Procedure (Urgent) - Closed Specialty Diagnoses / Procedures Referred By Beti montiel Ref[facility] To [facility] Diagnoses Pre-op testing Procedures ECG COMPLETE ECG ROUTINE ECG W/LEAST 12 LDS W/I&R Maryuri Lowery MD [address] [place] [address] Phone: tel: fax: [facility] [address] [place] [address] Referral ID Status Reason Start Date Expiration Date V isits Requested Visits Authorized [id number] Closed Auto-Generate d Referral 11/03/2024 06/13/2025 1 1 [facility] for visit Narrative* [place] Prior Authorization (Routine) - Authorized Specialty Diagnoses / Procedures Referred By Beti montiel Referred To Contact Diagnoses Malignant neoplasm of lower lobe of right lung (HCC) Rasheed Perez MD [address] [place] [address] Phone: tel: fax: Hematology/Oncology [address] [place] [address] Phone: tel: fax: Referral ID Status Reason Start Date Expiration Date V isits Requested Visits Authorized [id number] Authorized 11/27/2024 02/25/2025 1 99 [facility] for visit Narrative* [place] Prior Authorization (Routine) - Authorized Specialty Diagnoses / Procedures Referred By Contac t Referred To Contact Diagnoses Malignant neoplasm of lower lobe of right lung (HCC) Procedures ETOPOSIDE 10 MG INJ CISPLATIN 10 MG INJECTION PALONOSETRON HCL FOSAPREPITANT INJECTION Rasheed Perez MD [address] [place] [address] Phone: tel: fax: Hematology/Oncology [address] [place] [id number] Phone: tel: fax: Referral ID Status Reason Start Date Expiration Date V isits Requested Visits Authorized [id number] Authorized 01/08/2025 06/13/2025 99 99 [facility] for visit Narrative* [place] Prior Authorization (Routine) - Authorized Specialty Diagnoses / Procedures Referred By Contac t Referred To Contact Diagnoses Malignant neoplasm of lower lobe of right lung (HCC) Procedures ETOPOSIDE 10 MG INJ CISPLATIN 10 MG INJECTION PALONOSETRON HCL FOSAPREPITANT INJECTION Rasheed Perez MD [address] [place] [address] Phone: tel: fax: Hematology/Oncology [address] [place] [address] Phone: tel: fax: Referral ID Status Reason Start Date Expiration Date V isits Requested Visits Authorized [id number] Authorized 01/08/2025 06/13/2025 99 99 [facility] Summary Purpose Family History No Family History Records Found Relationship Condition Age at Onset Recorded Date/T ryann sister Kidney disorder Unknown father Hypertension Unknown mother Arthritis Unknown Relationship Condition Age at Onset Recorded Date/T ryann sister Kidney disorder Unknown father Hypertension Unknown Heart disease Unknown Myocardial infarction Unknown Presence of cardiac pacemaker Unknown mother Arthritis Unknown Second degree atrioventricular block Unkn own Advance Directives No Advanced Directives Records Found Advance Directive Response Recorded Date/ Time Advance [...] 10: 00am Wheezing, Shortness of breath, cough [facility] 2024 11:24am Chief Complaint Admit Date consistent cough (2 months) August 31, 2024 9:38am R05.3 August 31, 2024 10: 00am Wheezing, Shortness of breath, cough [facility] 2024 11:24am Unknown October 16, 2024 8:00am Chief Complaint Admit Date Unknown October 16, 2024 8:00am diff breathing January 02, 2025 5:55 pm Reason for Visit Admit Date History of lung cancer January 02, 2025 5 :55pm Pneumonia January 02, 2025 5:55 pm Syncope January 02, 2025 5:55 pm Chief Complaint Admit Date diff breathing January 02, 2025 5:55 pm shortness of breath January 15, 2025 12: 25pm Reason for Visit Admit Date History of lung cancer January 02, 2025 5 :55pm Pneumonia January 02, 2025 5:55 pm Syncope January 02, 2025 5:55 pm Lung cancer January 15, 2025 12: 25pm Pneumonia January 15, 2025 12: 25pm Chief Complaint Admit Date diff breathing January 02, 2025 5:55 pm shortness of breath January 15, 2025 12: 25pm shortness of breath January 16, 2025 12: 00am Reason for Visit Admit Date History of lung cancer January 02, 2025 5 :55pm Pneumonia January 02, 2025 5:55 pm Syncope January 02, 2025 5:55 pm Anxiety January 15, 2025 12: 25pm Cancer associated pain January 15, 2025 12:25pm Lung abscess January 15, 2025 12: 25pm Lung cancer January 15, 2025 12: 25pm Pneumonia January 15, 2025 12: 25pm Additional Source Comments (unrecognized sect ion and content) No Status Records FoundNo Status Records FoundNo Status Records FoundNo Status Records FoundNo Status Records FoundNo Status Records FoundNo Status Records Found INFORMATION SOURCE (unrecogn ized section and content) DATE CREATED AUTHOR 11/20/2022 [facility] DATE CREATED AUTHOR AUTHOR'S ORGANIZ ATION 11/23/2024 [facility] DATE CREATED AUTHOR AUTHOR'S ORGANIZ ATION 01/22/2025 [facility] DATE CREATED AUTHOR AUTHOR'S ORGANIZ ATION 02/06/2025 [facility] DATE CREATED AUTHOR AUTHOR'S ORGANIZ ATION 02/10/2025 [facility] DATE CREATED AUTHOR AUTHOR'S ORGANIZ ATION 02/11/2025 [facility] DATE CREATED AUTHOR AUTHOR'S ORGANIZ ATION 02/17/2025 [facility] Patient Care team informatio n (unrecognized section and content) Team Status: Active Member Role Status Dates TALISHA Escobedo Primary Care Provider Active Team Status: Inactive Member Role Status Dates Chip Carbajal DO Attending Provider Active St art: October 16, 2024 End: October 16, 2024 Team Status: Active Member Role Status Dates Dominic Ryder PA-C Emergency Provider Active Start: January 02, 2025 TALISHA Escobedo Primary Care Provider Active Start: January 02, 2025 Norah Whittaker MD Admit Provider Active Start : January 02, 2025 Norah Whittaker MD Attending Provider Active S tart: January 02, 2025 Team Status: Active Member Role Status Dates Alina Ragland MD Primary Care Provider Active Team Status: Active Member Role Status David Ragland MD Primary Care Provider Active Start: July 13, 2024 Mega Mckeon DO Attending Provider Active Sta rt: July 13, 2024 Team Status: Inactive Member Role Status David Ragland MD Primary Care Provider Active Start: August 31, 2024 End: August 31, 2024 Tonja De Oliveira APRN Attending Provider Active Start: August 31, 2024 End: August 31, 2024 Team Status: Active Member Role Status David Ragland MD Primary Care Provider Active Start: August 31, 2024 Tonja De Oliveira APRN Attending Provider Active Start: August 31, 2024 Team Status: Inactive Member Role Status David Ragland MD Primary Care Provider Active Start: September 08, 2024 End: September 08, 2024 Tonja De Oliveira APRN Attending Provider Active Start: September 08, 2024 End: September 08, 2024 Doormaker Relationship Specialty Start Date End Date Doug Bowles PCP - General 02/23/06 Doormaker Relationship Specialty Start Date End Date Carlos Collins APRN.TRUCK DRIVER [employer] [address] [place], [place] [id number] PCP - General Nurse Practitioner 10/27/24 Doormaker Relationship Specialty Start Date End Date Alina Ragland MD [address] [place] [phone] PCP - General Family Medicine 09/30/20 Doormaker Relationship Specialty Start Date End Date Carlos Collins APRN.TRUCK DRIVER [employer] [address] [place], [place] [id number] PCP - General Nurse Practitioner 10/27/24 Doormaker Relationship Specialty Start Date End Date Carlos Collins APRN.TRUCK DRIVER [employer] [address] [place] [address] PCP - General Nurse Practitioner 10/27/24 Doormaker Relationship Specialty Start Date End Date DennisCarlos sawant L, 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 [employer] [address] [place] [address]35 PCP - General Nurse Practitioner 11/08/24 Doormaker Relationship Specialty Start Date End Date DennisCarlos L, 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 [employer] [address] [place] [address]15 PCP - General Nurse Practitioner 11/08/24 Doormaker Relationship Specialty Start Date End Date DennisCarlos L, 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 [employer] [address] [place] [address] 65990 PCP - General Nurse Practitioner 10/27/24 Doormaker Relationship Specialty Start Date End Date DennisCarlos L, 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 [employer] [address] [place] [address] 42443 PCP - General Nurse Practitioner 11/08/24 Doormaker Relationship Specialty Start Date End Date DennisCarlos L, 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 [employer] [address] [place] [address] 88509 PCP - General Nurse Practitioner 10/27/24 Doormaker Relationship Specialty Start Date End Date DennisNoemydi L, 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 [employer] [address] [place] [address] [place] [address] PCP - General Nurse Practitioner 10/27/24 Doormaker Relationship Specialty Start Date End Date Dennis, Carlos L, 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 [employer] [address] [place] [address] 83441 PCP - General Nurse Practitioner 10/27/24 Doormaker Relationship Specialty Start Date End Date Dennis, Carlos L, 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 [employer] [address] [place] [address] 94464 PCP - General Nurse Practitioner 10/27/24 Doormaker Relationship Specialty Start Date End Date Dennis, Carlos L, 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 [employer] [address] [place] [address] 75886 PCP - General Nurse Practitioner 11/08/24 Doormaker Relationship Specialty Start Date End Date Dennis, Carlos L, 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 [employer] [address] [place] [address] 05646 PCP - General Nurse Practitioner 11/08/24 Doormaker Relationship Specialty Start Date End Date Dennis, Carlos L, 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 [employer] [address] [place] [address] 49939 PCP - General Nurse Practitioner 10/27/24 Doormaker Relationship Specialty Start Date End Date Dennis, Carlos L, 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 [employer] [address] [place] [address]132 PCP - General Nurse Practitioner 10/27/24 Doormaker Relationship Specialty Start Date End Date Dennis, Carlos L, 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 [employer] [address] [place] [address], [place] [address] PCP - General Nurse Practitioner 10/27/24 Doormaker Relationship Specialty Start Date End Date Dennis, Carlos L, 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 [employer] [address] [place] [address] [place] [address] PCP - General Nurse Practitioner 10/27/24 Doormaker Relationship Specialty Start Date End Date Dennis, Carlos L, 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 [employer] [address] [place] [address] 34911 PCP - General Nurse Practitioner 10/27/24 Doormaker Relationship Specialty Start Date End Date Carlos Collins, 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 [employer] [address] [place] [address] [phone] PCP - General Nurse Practitioner 10/27/24 Doormaker Relationship Specialty Start Date End Date Carlos Collins, 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 [employer] [address] [place] [address] [phone] PCP - General Nurse Practitioner 10/27/24 Doormaker Relationship Specialty Start Date End Date Carlos Collins L, 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 [employer] [address] [place], [place] [id number] PCP - General Nurse Practitioner 10/27/24 Blanquita Hargrove RN [address] [place] [address] Specialty Receptionist Secretary Hematology/Oncology 11/29/24 Rasheed Perez MD [address] [place] [address] Physician Hematology/Oncology 11/29/24 Doormaker Relationship Specialty Start Date End Date Carlos Collins, 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 [employer] [address] [place] [address] 92229 PCP - General Nurse Practitioner 10/27/24 Doormaker Relationship Specialty Start Date End Date Carlos Collins, 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 [employer] [address] [place] [address] 88479 PCP - General Nurse Practitioner 11/08/24 Doormaker Relationship Specialty Start Date End Date Dennis, Carlos L, 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 [employer] [address] [place] [address] 88066 PCP - General Nurse Practitioner 11/08/24 Doormaker Relationship Specialty Start Date End Date Carlos Collins, 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 [employer] [address] [place] [address] 45329 PCP - General Nurse Practitioner 10/27/24 Blanquita Hargrove, RN [address] [facility] [place] [address] Specialty Receptionist Secretary Hematology/Oncology 11/29/24 Rasheed Perez MD [address] [facility] [place] [address] Physician Hematology/Oncology 11/29/24 Doormaker Relationship Specialty Start Date End Date Carlos Collins, 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 [employer] [address] [place] [address] 16615 PCP - General Nurse Practitioner 10/27/24 Blanquita Hargrove RN [address] [facility] [place] [address] Specialty Receptionist Secretary Hematology/Oncology 11/29/24 Rasheed Perez MD [address] [facility] [place] [address] Physician Hematology/Oncology 11/29/24 Doormaker Relationship Specialty Start Date End Date Carlos Collins, 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 [employer] [address] [place] [address] 71185 PCP - General Nurse Practitioner 10/27/24 Blanquita Hargrove, RN [address] [facility] [place] [address] Specialty Receptionist Secretary Hematology/Oncology 11/29/24 Rasheed Perez MD [address] [facility] [place] [address] Physician Hematology/Oncology 11/29/24 Doormaker Relationship Specialty Start Date End Date Carlos Collins, 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 [employer] [address] [place] [address] PCP - General Nurse Practitioner 10/27/24 Blanquita Hargrove RN [address] [facility] [place] [address] Specialty Receptionist Secretary Hematology/Oncology 11/29/24 Rasheed Perez MD [address] [facility] [place] [address] Physician Hematology/Oncology 11/29/24 Doormaker Relationship Specialty Start Date End Date Carlos Collins, 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 [employer] [facility] [place] [address] PCP - General Nurse Practitioner 10/27/24 Blanquita Hargrove RN [address] [facility] [place] [address] Specialty Receptionist Secretary Hematology/Oncology 11/29/24 Rasheed Perez MD [address] [facility] [place] [address] Physician Hematology/Oncology 11/29/24 Doormaker Relationship Specialty Start Date End Date Carlos Collins, 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 [employer] [facility] [place] [address] PCP - General Nurse Practitioner 10/27/24 Blanquita Hargrove RN [address] [facility] [place] [address] Specialty Receptionist Secretary Hematology/Oncology 11/29/24 Rasheed Perez MD [address] [place] [address] Physician Hematology/Oncology 11/29/24 Doormaker Relationship Specialty Start Date End Date Carlos Collins, 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 [employer] [address] [place], [place] [id number] PCP - General Nurse Practitioner 10/27/24 Blanquita Hargrove RN [address] [place] [address] Specialty Receptionist Secretary Hematology/Oncology 11/29/24 Rasheed Perez MD [address] [facility] [place] [address] Physician Hematology/Oncology 11/29/24 Doormaker Relationship Specialty Start Date End Date Carlos Collins, 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 [employer] [address] [place], [place] [id number] PCP - General Nurse Practitioner 10/27/24 Doormaker Relationship Specialty Start Date End Date Carlos Collins, 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 [employer] [address] [place], [place] [id number] PCP - General Nurse Practitioner 10/27/24 Blanquita Hargrove RN [address] [place] [address] Specialty Receptionist Secretary Hematology/Oncology 11/29/24 Rasheed Perez MD [address] [place] [address] Physician Hematology/Oncology 11/29/24 Doormaker Relationship Specialty Start Date End Date Carlos Collins, 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 [employer] [address] [place] [address]5578 PCP - General Nurse Practitioner 10/27/24 Blanquita Hargrove, RN [address] [facility] [place] [address] Specialty Receptionist Secretary Hematology/Oncology 11/29/24 Rasheed Perez MD [address] [facility] [place] [address] Physician Hematology/Oncology 11/29/24 Doormaker Relationship Specialty Start Date End Date Carlos Collins 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 [employer] [address] [place] [address] 29592 PCP - General Nurse Practitioner 10/27/24 Blanquita Hargrove RN [address] [facility] [place] [address] Specialty Receptionist Secretary Hematology/Oncology 11/29/24 Rasheed Perez MD [address] [facility] [place] [address] Physician Hematology/Oncology 11/29/24 Doormaker Relationship Specialty Start Date End Date Carlos Collins, 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 [employer] [address] [place] [address] 64792 PCP - General Nurse Practitioner 10/27/24 Blanquita Hargrove RN [address] [facility] [place] [address] Specialty Receptionist Secretary Hematology/Oncology 11/29/24 Rasheed Perez MD [address] [facility] [place] [address] Physician Hematology/Oncology 11/29/24 Doormaker Relationship Specialty Start Date End Date Carlos Collins, 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 [employer] [address] [place] [address] PCP - General Nurse Practitioner 10/27/24 Blanquita Hargrove, RN [address] [facility] [place] [address] Specialty Receptionist Secretary Hematology/Oncology 11/29/24 Rasheed Perez MD [address] [facility] [place] [address] Physician Hematology/Oncology 11/29/24 Doormaker Relationship Specialty Start Date End Date Carlos Collins, 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 FL[employer] [facility] [place] [address] PCP - General Nurse Practitioner 10/27/24 Blanquita Hargrove RN [address] [facility] [place] [address] Specialty Receptionist Secretary Hematology/Oncology 11/29/24 Rasheed Perez MD [address] [facility] [place] [address] Physician Hematology/Oncology 11/29/24 Doormaker Relationship Specialty Start Date End Date Carlos Collins, 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 [employer] [facility] [address] [facility] [address] PCP - General Nurse Practitioner 10/27/24 Blanquita Hargrove, RN [address] [facility] [place] [address] Specialty Receptionist Secretary Hematology/Oncology 11/29/24 Rasheed Perez MD [address] [facility] [place] [address] Physician Hematology/Oncology 11/29/24 Doormaker Relationship Specialty Start Date End Date Carlos Collins, 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 [employer] [address] [place] [address] PCP - General Nurse Practitioner 10/27/24 Blanquita Hargrove, RN [address] [facility] [place] [address] Specialty Receptionist Secretary Hematology/Oncology 11/29/24 Rasheed Perez MD [address] [facility] [place] [place] [address] Physician Hematology/Oncology 11/29/24 Doormaker Relationship Specialty Start Date End Date Carlos Collins, 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 [employer] [facility] [place] [address] PCP - General Nurse Practitioner 10/27/24 Blanquita Hargrove RN [address] [facility] [place] [address] Specialty Receptionist Secretary Hematology/Oncology 11/29/24 Rasheed Perez MD [address] [facility] [place] [address] Physician Hematology/Oncology 11/29/24 Doormaker Relationship Specialty Start Date End Date Carlos Collins, 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 [employer] [facility] [place] [address] PCP - General Nurse Practitioner 10/27/24 Blanquita Hargrove RN [address] [facility] [place] [address] Specialty Receptionist Secretary Hematology/Oncology 11/29/24 Rasheed Perez MD [address] [facility] [place] [address] Physician Hematology/Oncology 11/29/24 Doormaker Relationship Specialty Start Date End Date Carlos Collins, VINAY.TRUCK DRIVER [employer] [address] [place] [address] PCP - General Nurse Practitioner 10/27/24 Blanquita Hargrove RN [address] [place] [address] Specialty Receptionist Secretary Hematology/Oncology 11/29/24 Rasheed Perez MD [address] [place] [address] Physician Hematology/Oncology 11/29/24 Team Status: Inactive Member Role Status Dates Dominic Ryder PA-C Emergency Provider Active Start: January 02, 2025 End: January 06, 2025 TALISHA Escobedo Primary Care Provider Active Start: January 02, 2025 End: January 06, 2025 Norah Whittaker MD Admit Provider Active Start : January 02, 2025 End: January 06, 2025 Norah Whittaker MD Attending Provider Active S tart: January 02, 2025 End: January 06, 2025 Doormaker Relationship Specialty Start Date End Date Carlos Collins, 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 [employer] [address] [place] [address] 63241 PCP - General Nurse Practitioner 10/27/24 Blanquita Hargrove RN [address] [place] [address] Specialty Receptionist Secretary Hematology/Oncology 11/29/24 Rasheed Perez MD [address] [place] [address] Physician Hematology/Oncology 11/29/24 Annel Alas LSW Restaurant Service Manager 01/08/25 Doormaker Relationship Specialty Start Date End Date Carlos Collins 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 [employer] [address] [place] [address]89 PCP - General Nurse Practitioner 11/08/24 Doormaker Relationship Specialty Start Date End Date Carlos Collins, 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 [employer] [address] [place] [address] 71044 PCP - General Nurse Practitioner 10/27/24 Blanquita Hargrove, RN [address] [place] [address] Specialty Receptionist Secretary Hematology/Oncology 11/29/24 Rasheed Perez MD [address] [place] [address] Physician Hematology/Oncology 11/29/24 Annel Alas LSW Restaurant Service Manager 01/08/25 Doormaker Relationship Specialty Start Date End Date Carlos Collins 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 [employer] [address] [place] [address] 97[address] PCP - General Nurse Practitioner 11/08/24 Doormaker Relationship Specialty Start Date End Date Carlos Collins, 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 [employer] [address] [place] [address] 05192 PCP - General Nurse Practitioner 10/27/24 Blanquita Hargrove RN [address] [place] [address] Specialty Receptionist Secretary Hematology/Oncology 11/29/24 Rasheed Perez MD [address] [place] [address] Physician Hematology/Oncology 11/29/24 Annel Alas LSW Restaurant Service Manager 01/08/25 Doormaker Relationship Specialty Start Date End Date Carlos Collins, 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 FLATBED [facility] [place] [address] PCP - General Nurse Practitioner 10/27/24 Blanquita Hargrove, RN [address] [place] [address] Specialty Receptionist Secretary Hematology/Oncology 11/29/24 Rasheed Perez MD [address] [place] [address] Physician Hematology/Oncology 11/29/24 Annel Alas LSW Restaurant Service Manager 01/08/25 Doormaker Relationship Specialty Start Date End Date Carlos Collins, 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 [employer] [address] [place] [address]4 PCP - General Nurse Practitioner 10/27/24 Blanquita Hargrove RN [address] [facility] [place] [address] Specialty Receptionist Secretary Hematology/Oncology 11/29/24 Rasheed Perez MD [address] [place] [address] Physician Hematology/Oncology 11/29/24 Annel Alas LSW Restaurant Service Manager 01/08/25 Doormaker Relationship Specialty Start Date End Date Carlos Collins, 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 [employer] [address] [place] [address] 77737 PCP - General Nurse Practitioner 10/27/24 Blanquita Hargrove, RN [address] [place] [address] Specialty Receptionist Secretary Hematology/Oncology 11/29/24 Rasheed Perez MD [address] [place] [address] Physician Hematology/Oncology 11/29/24 Annel Alas LSW Restaurant Service Manager 01/08/25 Doormaker Relationship Specialty Start Date End Date Carlos Collins, VINAY.TRUCK DRIVER FLATBED [facility] [place] [address] PCP - General Nurse Practitioner 10/27/24 Blanquita Hargrove RN [address] [facility] [place] [address] Specialty Receptionist Secretary Hematology/Oncology 11/29/24 Rasheed Perez MD [address] [facility] [place] [address] Physician Hematology/Oncology 11/29/24 Annel Alas LSW Restaurant Service Manager 01/08/25 Doormaker Relationship Specialty Start Date End Date Carlos Collins, 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 [employer] [address] [place] [address] 37768 PCP - General Nurse Practitioner 10/27/24 Blanquita Hargrove RN [address] [place] [address] Specialty Receptionist Secretary Hematology/Oncology 11/29/24 Rasheed Perez MD [address] [place] [address] Physician Hematology/Oncology 11/29/24 Annel Alas LSW Restaurant Service Manager 01/08/25 Doormaker Relationship Specialty Start Date End Date Carlos Collins, 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 [employer] [address] [place] [address] 53068 PCP - General Nurse Practitioner 10/27/24 Blanquita Hargrove RN [address] [place] [address] Specialty Receptionist Secretary Hematology/Oncology 11/29/24 Rasheed Perez MD [address] [place] [address] Physician Hematology/Oncology 11/29/24 Annel Alas LSW Restaurant Service Manager 01/08/25 Doormaker Relationship Specialty Start Date End Date Carlos Collins, 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 [employer] [address] [place] [address] 87746 PCP - General Nurse Practitioner 10/27/24 Blanquita Hargrove RN [address] [place] [address] Specialty Receptionist Secretary Hematology/Oncology 11/29/24 Rasheed Perez MD [address] [place] [address] [place] [address] Physician Hematology/Oncology 11/29/24 Annel Alas LSW Restaurant Service Manager 01/08/25 Doormaker Relationship Specialty Start Date End Date Carlos Collins, 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 [employer] [address] [place] [address] 78716 PCP - General Nurse Practitioner 10/27/24 Blanquita Hargrove RN [address] [place] [address] Specialty Receptionist Secretary Hematology/Oncology 11/29/24 Rasheed Perez MD [address] [place] [address] Physician Hematology/Oncology 11/29/24 Annel Alas LSW Restaurant Service Manager 01/08/25 Doormaker Relationship Specialty Start Date End Date Carlos Collins, 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 [employer] [address] [place] [address] 04620 PCP - General Nurse Practitioner 10/27/24 Blanquita Hargrove RN [address] [place] [address] Specialty Receptionist Secretary Hematology/Oncology 11/29/24 Rasheed Perez MD [facility] [place] [address] Physician Hematology/Oncology 11/29/24 Annel Alas, LITHOGRAPHIC PLATEMAKER Restaurant Service Manager 01/08/25 Doormaker Relationship Specialty Start Date End Date Carlos Collins APRN.TRUCK DRIVER [employer] [address] [place] [address] 86668 PCP - General Nurse Practitioner 10/27/24 Blanquita Hargrove RN [address] [place] [address] Specialty Receptionist Secretary Hematology/Oncology 11/29/24 Rasheed Perez MD [address] [place] [address] [place] [address] Physician Hematology/Oncology 11/29/24 Annel Alas, CHRISTEL Restaurant Service Manager 01/08/25 Team Status: Active Member Role Status Dates Carlos Collins , CYCLE CONSULTANT-C Primary Care Provider Active Start: January 15, 2025 Angelica Lawler DO Emergency Provider Active St art: January 15, 2025 Hayes Olivarez DO Admit Provider Active Start: January 15, 2025 Hayes Olivarez DO Attending Provider Active St art: January 15, 2025 Doormaker Relationship Specialty Start Date End Date Carlos Collins APRN.TRUCK DRIVER [employer] [address] [place] [address]1955 PCP - General Nurse Practitioner 10/27/24 Blanquita Hargrove RN [address] [place] [address] Specialty Receptionist Secretary Hematology/Oncology 11/29/24 Rasheed Perez MD [address] [place] [address] Physician Hematology/Oncology 11/29/24 Annel Alas LSW Restaurant Service Manager 01/08/25 Team Status: Active Member Role Status Dates Carlos Collins , CYCLE CONSULTANT-C Primary Care Provider Active Start: January 15, 2025 Angelica Lawler , DO Emergency Provider Active St art: January 15, 2025 Hayes Olivarez DO Admit Provider Active Start: January 15, 2025 Hayes Olivarez DO Other Provider Active Start: January 15, 2025 Alina Fernandez RN Other Provider Active Star t: January 15, 2025 Mell Holloway DO Other Provider Active Start : January 15, 2025 Amador Mendez MD Other Provider Active Start: January 15, 2025 Eddie Tirado MD Other Provider Active Start: January 15, 2025 Librado Sarkar MD Other Provider Active St art: January 15, 2025 Vick Lai MD Other Provider Active Start: January 15, 2025 Mimi Vásquez APRN Other Provider Active Start : January 15, 2025 Lora Suh MD Other Provider Active Start: A ugust 2024 Cielo Valderrama MD Other Provider Active Start: January 15, 2025 Jada Vinson MD Other Provider Active Start: A ugust 2024 Elise Ayala , MEDICAL ASSISTANT-BC Other Provider Active Sta rt: January 15, 2025 Shane Altamirano , Other Provider Active Start: January 15, 2025 Shannan Ramirez APRN Other Provider Active Start: January 15, 2025 Amarilys Jones DO Other Provider Active Sta rt: January 15, 2025 Neftali Motley , FELLOW Other Provider Active Start: January 15, 2025 Ari Locke , DO FELLOW Other Provider Active S tart: January 15, 2025 Crist[facility] Other Provider Active Start: January 15, 2025 Justin Abbasi MD Attending Provider Active Start: January 15, 2025 Justin Abbasi MD Other Provider Active Start: January 15, 2025 Ana Lilia Shearer MD Other Provider Active St art: January 15, 2025 Ari Noe MD Other Provider Active Start: A ug2024 Colin Rajput , DO Other Provider Active Start: January 15, 2025 Chip Carbajal , Other Provider Active Start: January 15, 2025 Azalea Merino MD Other Provider Active Start: A 2024 Cristian Bowers MD Other Provider Active Start: January 15 Nilay Vega MD Other Provider Active Start: A 2024 Ana Maria Sy MD Other Provider Active Start: January 15, 2025 Team Status: Active Member Role Status Dates Carlos Collins , CYCLE CONSULTANT-C Primary Care Provider Active Start: January 16, 2025 Angelica Lawler DO Emergency Provider Active St art: January 16, 2025 Hayes Olivarez DO Admit Provider Active Start: January 16, 2025 Hayes Olivarez DO Other Provider Active Start: January 16, 2025 Alina Fernandez RN Other Provider Active Star t: January 16, 2025 Mell Holloway DO Other Provider Active Start : January 16, 2025 Amador Mendez MD Other Provider Active Start: January 16, 2025 Eddie Tirado MD Other Provider Active Start: January 16, 2025 Librado Sarkar MD Other Provider Active St art: January 16, 2025 Vick Lai MD Other Provider Active Start: January 16, 2025 Mimi Vásquez APRN Other Provider Active Start : January 16, 2025 Lora Suh MD Other Provider Active Start: A 2024 Cielo Valderrama MD Other Provider Active Start: January 16, 2025 Jada Vinson MD Other Provider Active Start: A 2024 Elise Ayala MEDICAL ASSISTANT- Other Provider Active Sta rt: January 16, 2025 Philippe Epps MD Attending Provider Active Start: January 16, 2025 Doormaker Relationship Specialty Start Date End Date Carlos Collins APRN.TRUCK DRIVER FLATBED [address] [place] [address]80 PCP - General Nurse Practitioner 10/27/24 Blanquita Hargrove, RN [address] [facility] [place] [address] Specialty Receptionist Secretary Hematology/Oncology 11/29/24 Rasheed Perez MD [address] [place] [address] Physician Hematology/Oncology 11/29/24 Annel Alas LSW Restaurant Service Manager 01/08/25 Doormaker Relationship Specialty Start Date End Date Carlos Collins, 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 FLATB[employer] [address] [place] [address] 17967 PCP - General Nurse Practitioner 10/27/24 Blanquita Hargrove RN [address] [place] [address] Specialty Receptionist Secretary Hematology/Oncology 11/29/24 Rasheed Perez MD [address] [place] [address] Physician Hematology/Oncology 11/29/24 Annel Alas LSW Restaurant Service Manager 01/08/25 Ricardo Alva RN Specialty Receptionist Secretary Hospice & Palliative Medicine 01/23/25 Sheila Freeman, 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 FLATBED [address] [place] [phone] Hospice & Palliative Medicine 01/23/25 Doormaker Relationship Specialty Start Date End Date Carlos Collins, 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 FLATBED [address] [place] [address] 98346 PCP - General Nurse Practitioner 10/27/24 Blanquita Hargrove RN [address] [place] [address] Specialty Receptionist Secretary Hematology/Oncology 11/29/24 Rasheed Perez MD [address] [place] [address] Physician Hematology/Oncology 11/29/24 Annel Alas, LITHOGRAPHIC PLATEMAKER Restaurant Service Manager 01/08/25 Ricardo Alva, PRITI Specialty Receptionist Secretary Hospice & Palliative Medicine 01/23/25 Sheila Freeman, 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 FLATBED [address] [place] [phone] Hospice & Palliative Medicine 01/23/25 Doormaker Relationship Specialty Start Date End Date Carlos Collins, 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 FLATBED [address] [place] [address] 72196 PCP - General Nurse Practitioner 10/27/24 Blanquita Hargrove RN [address] [place] [address] Specialty Receptionist Secretary Hematology/Oncology 11/29/24 Rasheed Perez MD [address] [place] [address] Physician Hematology/Oncology 11/29/24 Annel Alas, CHRISTEL Restaurant Service Manager 01/08/25 Ricardo Alva RN Specialty Receptionist Secretary Hospice & Palliative Medicine 01/23/25 Sheila Freeman, 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 FL[employer] [address] [place] [phone] Hospice & Palliative Medicine 01/23/25 Doormaker Relationship Specialty Start Date End Date Carlos Collins, 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 FLATBED [address] [place] [address]32 PCP - General Nurse Practitioner 10/27/24 Blanquita Hargrove, RN [address] [place] [address] Specialty Receptionist Secretary Hematology/Oncology 11/29/24 Rasheed Perez MD [address] [place] [address] Physician Hematology/Oncology 11/29/24 Annel Alas LSW Restaurant Service Manager 01/08/25 Ricardo Alva RN Specialty Receptionist Secretary Hospice & Palliative Medicine 01/23/25 Sheila Freeman, 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 FLATBED [address] [place] [address] Hospice & Palliative Medicine 01/23/25 Doormaker Relationship Specialty Start Date End Date Carlos Collins, 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 FLATBED [address] [place] [address] 11388 PCP - General Nurse Practitioner 10/27/24 Blanquita Hargrove RN [address] [place] [address] Specialty Receptionist Secretary Hematology/Oncology 11/29/24 Rasheed Perez MD [address] [place] [address] Physician Hematology/Oncology 11/29/24 Annel Alas, CHRISTEL Restaurant Service Manager 01/08/25 Ricardo Alva RN Specialty Receptionist Secretary Hospice & Palliative Medicine 01/23/25 Sheila Freeman, 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 FLATBED [address] [place] [address] Hospice & Palliative Medicine 01/23/25 Doormaker Relationship Specialty Start Date End Date Carlos Collins, 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 FLATBED [address] [place] [address] 27389 PCP - General Nurse Practitioner 10/27/24 Blanquita Hargrove RN [address] [facility] [place] [address] Specialty Receptionist Secretary Hematology/Oncology 11/29/24 Rasheed Perez MD [address] [facility] [place] [address] Physician Hematology/Oncology 11/29/24 Annel Alas, LITHOGRAPHIC PLATEMAKER Restaurant Service Manager 01/08/25 Ricardo Alva RN Specialty Receptionist Secretary Hospice & Palliative Medicine 01/23/25 Sheila Freeman, 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 FLAT[employer]ED [address] [facility] [place] [phone] Hospice & Palliative Medicine 01/23/25 Doormaker Relationship Specialty Start Date End Date Carlos Collins, 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 FLATBED [address] [place] [address] 71876 PCP - General Nurse Practitioner 10/27/24 Blanquita Hargrove RN [address] [facility] [place] [address] Specialty Receptionist Secretary Hematology/Oncology 11/29/24 Rasheed Perez MD [address] [facility] [place] [address] Physician Hematology/Oncology 11/29/24 Annel Alas, LITHOGRAPHIC PLATEMAKER Restaurant Service Manager 01/08/25 Ricardo Alva RN Specialty Receptionist Secretary Hospice & Palliative Medicine 01/23/25 Sheila Freeman, 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 FLATBED [address] [facility] [place] [phone] Hospice & Palliative Medicine 01/23/25 Doormaker Relationship Specialty Start Date End Date Carlos Collins, 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 FLATBED [address] [place] [address] 16371 PCP - General Nurse Practitioner 10/27/24 Blanquita Hargrove, RN [address] [facility] [place] [address] Specialty Receptionist Secretary Hematology/Oncology 11/29/24 Rasheed Perez MD [address] [facility] [place] [address] Physician Hematology/Oncology 11/29/24 Annel Alas LSW Restaurant Service Manager 01/08/25 Ricardo Alva RN Specialty Receptionist Secretary Hospice & Palliative Medicine 01/23/25 Sheila Freeman, 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 FLATBED [address] [facility] [place] [phone] Hospice & Palliative Medicine 01/23/25 Doormaker Relationship Specialty Start Date End Date Carlos Collins, 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 FLATBED [address] [place] [address] 02177 PCP - General Nurse Practitioner 10/27/24 Blanquita Hargrove, RN [address] [facility] [place] [address] Specialty Receptionist Secretary Hematology/Oncology 11/29/24 Rasheed Perez MD [address] [facility] [place] [address] Physician Hematology/Oncology 11/29/24 Annel Alas, CHRISTEL Restaurant Service Manager 01/08/25 Ricardo Alva, PRITI Specialty Receptionist Secretary Hospice & Palliative Medicine 01/23/25 Sheila Freeman, 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 FLATBED [address] [facility] [place] [phone] Hospice & Palliative Medicine 01/23/25 Doormaker Relationship Specialty Start Date End Date Carlos Collins, 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 FLATBED [address] [place] [address] 51229 PCP - General Nurse Practitioner 10/27/24 Blanquita Hargrove, RN [address] [facility] [place] [address] Specialty Receptionist Secretary Hematology/Oncology 11/29/24 Rasheed Perez MD [address] [facility] [place] [address] Physician Hematology/Oncology 11/29/24 Annel Alas, LITHOGRAPHIC PLATEMAKER Restaurant Service Manager 01/08/25 Ricardo Alva RN Specialty Receptionist Secretary Hospice & Palliative Medicine 01/23/25 Sheila Freeman, 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 FLATBED [address] [place] [phone] Hospice & Palliative Medicine 01/23/25 Doormaker Relationship Specialty Start Date End Date Carlos Collins, 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 FLATBED [address] [place] [address] 65428 PCP - General Nurse Practitioner 10/27/24 Blanquita Hargrove RN [address] [facility] [place] [address] Specialty Receptionist Secretary Hematology/Oncology 11/29/24 Rasheed Perez MD [address] [place] [address] Physician Hematology/Oncology 11/29/24 Annel Alas, LITHOGRAPHIC PLATEMAKER Restaurant Service Manager 01/08/25 Ricardo Alva RN Specialty Receptionist Secretary Hospice & Palliative Medicine 01/23/25 Sheila Freeman, 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 FLATBED [address] [place] [address] Hospice & Palliative Medicine 01/23/25 Doormaker Relationship Specialty Start Date End Date Carlos Collins 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 FLATBED [address] [place] [address] 93489 PCP - General Nurse Practitioner 10/27/24 Blanquita Hargrove RN [address] [place] [address] Specialty Receptionist Secretary Hematology/Oncology 11/29/24 Rasheed Perze MD [address] [place] [address] Physician Hematology/Oncology 11/29/24 Annel Alas, LITHOGRAPHIC PLATEMAKER Restaurant Service Manager 01/08/25 Ricardo Alva, RN Specialty Receptionist Secretary Hospice & Palliative Medicine 01/23/25 Sheila Freeman, 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 FLATBED [address] [place] [phone] Hospice & Palliative Medicine 01/23/25 Doormaker Relationship Specialty Start Date End Date Carlos Collins 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 FLATBED [address] [place] [address] 77458 PCP - General Nurse Practitioner 10/27/24 Blanquita Hargrove RN [address] [place] [address] Specialty Receptionist Secretary Hematology/Oncology 11/29/24 Rasheed Perez MD [address] [place] [address] Physician Hematology/Oncology 11/29/24 Annel Alas, CHRISTEL Restaurant Service Manager 01/08/25 Ricardo Alva, RN Specialty Receptionist Secretary Hospice & Palliative Medicine 01/23/25 Sheila Freeman, 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 FLATBED [address] [place] [address] Hospice & Palliative Medicine 01/23/25 Doormaker Relationship Specialty Start Date End Date Carlos Collins 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 FLATBED [facility] [place] [address] PCP - General Nurse Practitioner 10/27/24 Blanquita Hargrove RN [address] [place] [address] Specialty Receptionist Secretary Hematology/Oncology 11/29/24 Rasheed Perez MD [address] [place] [address] Physician Hematology/Oncology 11/29/24 Annel Alas, LITHOGRAPHIC PLATEMAKER Restaurant Service Manager 01/08/25 Ricardo Alva RN Specialty Receptionist Secretary Hospice & Palliative Medicine 01/23/25 Sheila Freeman, 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 FLATBED [address] [place] [address] Hospice & Palliative Medicine 01/23/25 Doormaker Relationship Specialty Start Date End Date Carlos Collins, 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 FLATBED [address] [place] [address] 93583 PCP - General Nurse Practitioner 10/27/24 Blanquita Hargrove, PRITI [address] [place] [address] Specialty Receptionist Secretary Hematology/Oncology 11/29/24 Rasheed Perez MD [address] [place] [address] Physician Hematology/Oncology 11/29/24 Annel Alas, CHRISTEL Restaurant Service Manager 01/08/25 Ricardo Alva, PRITI Specialty Receptionist Secretary Hospice & Palliative Medicine 01/23/25 Sheila Freeman, 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 FLATBED [address] [place] [address] Hospice & Palliative Medicine 01/23/25 Doormaker Relationship Specialty Start Date End Date Carlos Collins, 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 FLATBED [facility] [place] [address] PCP - General Nurse Practitioner 10/27/24 Blanquita Hargrove, PRITI [address] [place] [address] Specialty Receptionist Secretary Hematology/Oncology 11/29/24 Rasheed Perez MD [address] [place] [address] Physician Hematology/Oncology 11/29/24 Annel Alas, CHRISTEL Restaurant Service Manager 01/08/25 Ricardo Alva RN Specialty Receptionist Secretary Hospice & Palliative Medicine 01/23/25 Sheila Freeman, 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 FLATBED [address] [place] [address] Hospice & Palliative Medicine 01/23/25 Doormaker Relationship Specialty Start Date End Date Carlos Collins, 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 FLATBED [address] [place] [address] 14845 PCP - General Nurse Practitioner 10/27/24 Blanquita Hargrove RN [address] [place] [address] Specialty Receptionist Secretary Hematology/Oncology 11/29/24 Rasheed Perez MD [address] [place] [address] [place] [address] Physician Hematology/Oncology 11/29/24 Annel Alas, LITHOGRAPHIC PLATEMAKER Restaurant Service Manager 01/08/25 Ricardo Alva RN Specialty Receptionist Secretary Hospice & Palliative Medicine 01/23/25 Sheila Freeman, 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 FLATBED [address] [place] [address] [place] [address] Hospice & Palliative Medicine 01/23/25 Doormaker Relationship Specialty Start Date End Date Carlos Collins, 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 FLATBED [address] [place] [address] 03821 PCP - General Nurse Practitioner 10/27/24 Blanquita Hargrove RN [address] [place] [address] Specialty Receptionist Secretary Hematology/Oncology 11/29/24 Rasheed Perez MD [address] [place] [place] [address] [place] [address] Physician Hematology/Oncology 11/29/24 Annel Alas, LITHOGRAPHIC PLATEMAKER Restaurant Service Manager 01/08/25 Ricardo Alva RN Specialty Receptionist Secretary Hospice & Palliative Medicine 01/23/25 Sheila Freeman, 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 FLATBED [address] [facility] [place] [address] Hospice & Palliative Medicine 01/23/25 Doormaker Relationship Specialty Start Date End Date Carlos Collins, 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 FLATBED [address] [place], [place] [address] [address] PCP - General Nurse Practitioner 10/27/24 Blanquita Hargrove, RN [address] [facility] [place] [address] Specialty Receptionist Secretary Hematology/Oncology 11/29/24 Rasheed Perez MD [address] [place] [address] Physician Hematology/Oncology 11/29/24 Annel Alas LSW Restaurant Service Manager 01/08/25 Ricardo Alva RN Specialty Receptionist Secretary Hospice & Palliative Medicine 01/23/25 Sheila Freeman, 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 FLATBED [address] [place] [phone] Hospice & Palliative Medicine 01/23/25 Doormaker Relationship Specialty Start Date End Date Carlos Collins, 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 FLATBED [address] [place] [address] 24871 PCP - General Nurse Practitioner 10/27/24 Blanquita Hargrove, RN [address] [facility] [place] [address] Specialty Receptionist Secretary Hematology/Oncology 11/29/24 Rasheed Perez MD [address] [place] [address] Physician Hematology/Oncology 11/29/24 Annel Alas LSW Restaurant Service Manager 01/08/25 Doormaker Relationship Specialty Start Date End Date Carlos Collins, 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 FLATBED [address] [place] [address] 81657 PCP - General Nurse Practitioner 10/27/24 Blanquita Hargrove RN [address] [place] [address] Specialty Receptionist Secretary Hematology/Oncology 11/29/24 Rasheed Perez MD [address] [place] [address] [place] [address] Physician Hematology/Oncology 11/29/24 Annel Alas LSW Restaurant Service Manager 01/08/25 Ricardo Alva RN Specialty Receptionist Secretary Hospice & Palliative Medicine 01/23/25 Sheila Freeman, 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 FLATBED [address] [place] [place] [address] [place] [phone] Hospice & Palliative Medicine 01/23/25 Doormaker Relationship Specialty Start Date End Date Carlos Collins, 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 FLATBED [address] [place] [address] 39796 PCP - General Nurse Practitioner 10/27/24 Blanquita Hargrove RN [address] [place] [address] Specialty Receptionist Secretary Hematology/Oncology 11/29/24 Rasheed Perez MD [address] [place] [address] [place] [address] Physician Hematology/Oncology 11/29/24 Annel Alas, CHRISTEL Restaurant Service Manager 01/08/25 Ricardo Alva RN Specialty Receptionist Secretary Hospice & Palliative Medicine 01/23/25 Sheila Freeman, 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 FLATBED [address] [facility] [place] [phone] Hospice & Palliative Medicine 01/23/25 Doormaker Relationship Specialty Start Date End Date Carlos Collins, 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 FLATBED [address] [place], [place] [address] [address] PCP - General Nurse Practitioner 10/27/24 Blanquita Hargrove, RN [address] [facility] [place] [address] Specialty Receptionist Secretary Hematology/Oncology 11/29/24 Rasheed Perez MD [address] [place] [address] Physician Hematology/Oncology 11/29/24 Annel Alas LSW Restaurant Service Manager 01/08/25 Ricardo Alva RN Specialty Receptionist Secretary Hospice & Palliative Medicine 01/23/25 Sheila Freeman, 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 FLATBED [address] [place] [phone] Hospice & Palliative Medicine 01/23/25 Doormaker Relationship Specialty Start Date End Date Carlos Collins, 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 FLATBED [address] [place] [address] 57615 PCP - General Nurse Practitioner 10/27/24 Blanquita Hargrove, RN [address] [facility] [place] [address] Specialty Receptionist Secretary Hematology/Oncology 11/29/24 Rasheed Perez MD [address] [place] [address] Physician Hematology/Oncology 11/29/24 Annel Alas, CHRISTEL Restaurant Service Manager 01/08/25 Ricardo Alva RN Specialty Receptionist Secretary Hospice & Palliative Medicine 01/23/25 Sheila Freeman, 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 FLATBED [address] [place] [address] Hospice & Palliative Medicine 01/23/25 Doormaker Relationship Specialty Start Date End Date Carlos Collins, 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 FLATBED [facility] [place] [address] PCP - General Nurse Practitioner 10/27/24 Blanquita Hragrove, RN [address] [place] [address] Specialty Receptionist Secretary Hematology/Oncology 11/29/24 Rasheed Perez MD [address] [place] [address] [place] [address] Physician Hematology/Oncology 11/29/24 Annel Alas LSW Restaurant Service Manager 01/08/25 Ricardo Alva RN Specialty Receptionist Secretary Hospice & Palliative Medicine 01/23/25 Sheila Freeman, 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 FLATBED [address] [place] [phone] Hospice & Palliative Medicine 01/23/25 Doormaker Relationship Specialty Start Date End Date Carlos Collins, 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 FLATBED [facility] [place] [address] PCP - General Nurse Practitioner 10/27/24 Blanquita Hargrove, RN [address] [facility] [place] [address] Specialty Receptionist Secretary Hematology/Oncology 11/29/24 Rasheed Perez MD [address] [facility] [place] [address] Physician Hematology/Oncology 11/29/24 Annel Alas, LITHOGRAPHIC PLATEMAKER Restaurant Service Manager 01/08/25 Ricardo Alva, PRITI Specialty Receptionist Secretary Hospice & Palliative Medicine 01/23/25 Sheila Freeman, 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 FLATBED [address] [facility] [place] [address] Hospice & Palliative Medicine 01/23/25 Doormaker Relationship Specialty Start Date End Date Carlos Collins, 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 FLATBED [address] [place] [address] 89790 PCP - General Nurse Practitioner 10/27/24 Blanquita Hargrove RN [address] [facility] [place] [address] Specialty Receptionist Secretary Hematology/Oncology 11/29/24 Rasheed Perez MD [address] [facility] [place] [address] Physician Hematology/Oncology 11/29/24 Annel Alas, LITHOGRAPHIC PLATEMAKER Restaurant Service Manager 01/08/25 Ricardo Alva RN Specialty Receptionist Secretary Hospice & Palliative Medicine 01/23/25 Sheila Freeman, 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 FLATBED [address] [facility] [place] [address] Hospice & Palliative Medicine 01/23/25 Doormaker Relationship Specialty Start Date End Date Carlos Collins, 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 FLATBED [address] [place] [address] [phone] PCP - General Nurse Practitioner 10/27/24 Blanquita Hargrove RN [address] [place] [address] Specialty Receptionist Secretary Hematology/Oncology 11/29/24 Rasheed Perez MD [address] [place] [address] Physician Hematology/Oncology 11/29/24 Annel Alas, LITHOGRAPHIC PLATEMAKER Restaurant Service Manager 01/08/25 Ricardo Alva, RN Specialty Receptionist Secretary Hospice & Palliative Medicine 01/23/25 Sheila Freeman, 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 FLATBED [address] [place] [place] [address] [place] [address] Hospice & Palliative Medicine 01/23/25 Doormaker Relationship Specialty Start Date End Date Carlos Collins 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 FLATBED [address] [place] [address]337 PCP - General Nurse Practitioner 11/08/24 Doormaker Relationship Specialty Start Date End Date Carlos Collins 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 FLATBED [address] [place] [address] 38065 PCP - General Nurse Practitioner 10/27/24 Blanquita Hargrove RN [address] [place] [address] Specialty Receptionist Secretary Hematology/Oncology 11/29/24 Rasheed Perez MD [address] [place] [address] Physician Hematology/Oncology 11/29/24 Annel Alas, LITHOGRAPHIC PLATEMAKER Restaurant Service Manager 01/08/25 Ricardo Alva, RN Specialty Receptionist Secretary Hospice & Palliative Medicine 01/23/25 Sheila Freeman, 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 FLATBED [address] [place] [place] [address] [place] [phone] Hospice & Palliative Medicine 01/23/25 Doormaker Relationship Specialty Start Date End Date Carlos Collins 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 FLATBED [address] [place] [address]15 PCP - General Nurse Practitioner 10/27/24 Blanquita Hargrove, RN [address] [place] [place] [address] [place] [address] Specialty Receptionist Secretary Hematology/Oncology 11/29/24 Rasheed Perez MD [address] [place] [place] [address] [place] [address] Physician Hematology/Oncology 11/29/24 Annel Alas LSW Restaurant Service Manager 01/08/25 Ricardo Alva RN Specialty Receptionist Secretary Hospice & Palliative Medicine 01/23/25 Sheila Freeman, 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 FLATBED [address] [place] [place] [address] [place] [phone] Hospice & Palliative Medicine 01/23/25 Doormaker Relationship Specialty Start Date End Date Carlos Collins 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 [employer]AT[employer]ED [address] [place] [phone] PCP - General Nurse Practitioner 11/08/24 Doormaker Relationship Specialty Start Date End Date Carlos Collins 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 [employer]AT[employer] [address] [place] [address] [id number] PCP - General Nurse Practitioner 11/08/24 Doormaker Relationship Specialty Start Date End Date Carlos Collins, 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 FLATBED [address] [place] [address] [phone] PCP - General Nurse Practitioner 10/27/24 Blanquita Hargrove, RN [address] [place] [address] Specialty Receptionist Secretary Hematology/Oncology 11/29/24 Rasheed Perez MD [address] [place] [address] Physician Hematology/Oncology 11/29/24 Annel Alas, LITHOGRAPHIC PLATEMAKER Restaurant Service Manager 01/08/25 Ricardo Alva RN Specialty Receptionist Secretary Hospice & Palliative Medicine 01/23/25 Sheila Freeman, 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 FLAT[employer] [address] [place] [id number] Hospice & Palliative Medicine 01/23/25 Doormaker Relationship Specialty Start Date End Date Carlos Collins, 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 FLATBED [address] [place] [address] [id number] PCP - General Nurse Practitioner 10/27/24 Blanquita Hargrove RN [address] [place] [address] Specialty Receptionist Secretary Hematology/Oncology 11/29/24 Rasheed Perez MD [address] [place] [address] Physician Hematology/Oncology 11/29/24 Annel Alas, CHRISTEL Restaurant Service Manager 01/08/25 Doormaker Relationship Specialty Start Date End Date Carlos Collins, 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 FLATBED [address] [place] [address] [phone] PCP - General Nurse Practitioner 10/27/24 Blanquita Hargrove RN [address] [place], [place] [id number] Specialty Receptionist Secretary Hematology/Oncology 11/29/24 Rasheed Perez MD [address] [place] [address] Physician Hematology/Oncology 11/29/24 Annel Alas, LITHOGRAPHIC PLATEMAKER Restaurant Service Manager 01/08/25 Ricardo Alva, RN Specialty Receptionist Secretary Hospice & Palliative Medicine 01/23/25 Sheila Freeman, 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 FLAT[employer]ED [address] [place] [phone] Hospice & Palliative Medicine 01/23/25 Doormaker Relationship Specialty Start Date End Date Carlos Collins, 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 FLATBED [address] [place] [address] [phone] PCP - General Nurse Practitioner 10/27/24 Blanquita Hargrove RN [address] [place] [address] Specialty Receptionist Secretary Hematology/Oncology 11/29/24 Rasheed Perez MD [address] [place] [address] Physician Hematology/Oncology 11/29/24 Annel Alas, LITHOGRAPHIC PLATEMAKER Restaurant Service Manager 01/08/25 Ricardo Alva, RN Specialty Receptionist Secretary Hospice & Palliative Medicine 01/23/25 Sheila Freeman, 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 FLATBED [address] [place] [address] Hospice & Palliative Medicine 01/23/25 Doormaker Relationship Specialty Start Date End Date Carlos Collins, 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 FLATBED [address] [place] [address] [phone] PCP - General Nurse Practitioner 10/27/24 Blanquita Hargrove, RN [address] [place] [address] Specialty Receptionist Secretary Hematology/Oncology 11/29/24 Rasheed Perez MD [address] [place] [address] Physician Hematology/Oncology 11/29/24 Annel Alas, LITHOGRAPHIC PLATEMAKER Restaurant Service Manager 01/08/25 Ricardo Alva, RN Specialty Receptionist Secretary Hospice & Palliative Medicine 01/23/25 Sheila Freeman, 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 FLATBED [address] [place] [phone] Hospice & Palliative Medicine 01/23/25 Doormaker Relationship Specialty Start Date End Date Carlos Collins, 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 FLATBED [address] [place] [phone] PCP - General Nurse Practitioner 10/27/24 Blanquita Hargrove RN [address] [place] [address] Specialty Receptionist Secretary Hematology/Oncology 11/29/24 Rasheed Perez MD [address] [place] [address] Physician Hematology/Oncology 11/29/24 Annel Alas, LITHOGRAPHIC PLATEMAKER Restaurant Service Manager 01/08/25 Ricardo Alva, RN Specialty Receptionist Secretary Hospice & Palliative Medicine 01/23/25 Sheila Freeman, 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 FLATBED [address] [place] [id number] Hospice & Palliative Medicine 01/23/25 Doormaker Relationship Specialty Start Date End Date Carlos Collins, 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 FLATBED [address] [place] [id number] PCP - General Nurse Practitioner 10/27/24 Blanquita Hargrove, PRITI [address] [place] [address] Specialty Receptionist Secretary Hematology/Oncology 11/29/24 Rasheed Perez MD [address] [facility] [place] [address] Physician Hematology/Oncology 11/29/24 Annel Alas, CHRISTEL Restaurant Service Manager 01/08/25 Ricardo Alva RN Specialty Receptionist Secretary Hospice & Palliative Medicine 01/23/25 Sheila Freeman, 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 FLATBED [address] [place] [address] Hospice & Palliative Medicine 01/23/25 Doormaker Relationship Specialty Start Date End Date Carlos Collins, 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 FLATBED [address] [place] [address] [id number] PCP - General Nurse Practitioner 10/27/24 Blanquita Hargrove RN [address] [place] [address] Specialty Receptionist Secretary Hematology/Oncology 11/29/24 Rasheed Perez MD [address] [place] [address] Physician Hematology/Oncology 11/29/24 Annel Alas, LITHOGRAPHIC PLATEMAKER Restaurant Service Manager 01/08/25 Ricardo Alva RN Specialty Receptionist Secretary Hospice & Palliative Medicine 01/23/25 Sheila Freeamn, 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 FLATBED [address] [place] [address] Hospice & Palliative Medicine 01/23/25 Goals (unrecognized section and content) Type Treatment Intervention Code Status: Full Code Goals may be documented in an alternate section Source Comments (unrecognize d section and content) In the event this informatio n is protected by the Federal Confidentiality of Alcohol and Drug Abuse Patient Records regulations: The Federal rules restrict any use of the information to criminally investigate or prosecute any alcohol or drug abuse patient.[facility] the event this information is protected by the Federal Confidentiality of Alcohol and Drug Abuse Patient Records regulations: The Federal rules restrict any use of the information to criminally investigate or prosecute any alcohol or drug abuse patient.[facility] the event this information is protected by the Federal Confidentiality of Alcohol and Drug Abuse Patient Records regulations: The Federal rules restrict any use of the information to criminally investigate or prosecute any alcohol or drug abuse patient.[facility] the event this information is protected by the Federal Confidentiality of Alcohol and Drug Abuse Patient Records regulations: The Federal rules restrict any use of the information to criminally investigate or prosecute any alcohol or drug abuse patient.[facility]In the event this information is protected by the Federal Confidentiality of Alcohol and Drug Abuse Patient Records regulations: The Federal rules restrict any use of the information to criminally investigate or prosecute any alcohol or drug abuse patient.[facility]In the event this information is protected by the Federal Confidentiality of Alcohol and Drug Abuse Patient Records regulations: The Federal rules restrict any use of the information to criminally investigate or prosecute any alcohol or drug abuse patient.[facility]In the event this information is protected by the Federal Confidentiality of Alcohol and Drug Abuse Patient Records regulations: The Federal rules restrict any use of the information to criminally investigate or prosecute any alcohol or drug abuse patient.[facility]In the event this information is protected by the Federal Confidentiality of Alcohol and Drug Abuse Patient Records regulations: The Federal rules restrict any use of the information to criminally investigate or prosecute any alcohol or drug abuse patient.[facility]In the event this information is protected by the Federal Confidentiality of Alcohol and Drug Abuse Patient Records regulations: The Federal rules restrict any use of the information to criminally investigate or prosecute any alcohol or drug abuse patient.[facility]In the event this information is protected by the Federal Confidentiality of Alcohol and Drug Abuse Patient Records regulations: The Federal rules restrict any use of the information to criminally investigate or prosecute any alcohol or drug abuse patient.[facility]In the event this information is protected by the Federal Confidentiality of Alcohol and Drug Abuse Patient Records regulations: The Federal rules restrict any use of the information to criminally investigate or prosecute any alcohol or drug abuse patient.[facility]In the event this information is protected by the Federal Confidentiality of Alcohol and Drug Abuse Patient Records regulations: The Federal rules restrict any use of the information to criminally investigate or prosecute any alcohol or drug abuse patient.[facility]In the event this information is protected by the Federal Confidentiality of Alcohol and Drug Abuse Patient Records regulations: The Federal rules restrict any use of the information to criminally investigate or prosecute any alcohol or drug abuse patient.[facility]In the event this information is protected by the Federal Confidentiality of Alcohol and Drug Abuse Patient Records regulations: The Federal rules restrict any use of the information to criminally investigate or prosecute any alcohol or drug abuse patient.[facility]In the event this information is protected by the Federal Confidentiality of Alcohol and Drug Abuse Patient Records regulations: The Federal rules restrict any use of the information to criminally investigate or prosecute any alcohol or drug abuse patient.[facility]In the event this information is protected by the Federal Confidentiality of Alcohol and Drug Abuse Patient Records regulations: The Federal rules restrict any use of the information to criminally investigate or prosecute any alcohol or drug abuse patient.[facility]In the event this information is protected by the Federal Confidentiality of Alcohol and Drug Abuse Patient Records regulations: The Federal rules restrict any use of the information to criminally investigate or prosecute any alcohol or drug abuse patient.[facility]In the event this information is protected by the Federal Confidentiality of Alcohol and Drug Abuse Patient Records regulations: The Federal rules restrict any use of the information to criminally investigate or prosecute any alcohol or drug abuse patient.[facility]In the event this information is protected by the Federal Confidentiality of Alcohol and Drug Abuse Patient Records regulations: The Federal rules restrict any use of the information to criminally investigate or prosecute any alcohol or drug abuse patient.[facility]In the event this information is protected by the Federal Confidentiality of Alcohol and Drug Abuse Patient Records regulations: The Federal rules restrict any use of the information to criminally investigate or prosecute any alcohol or drug abuse patient.[facility]In the event this information is protected by the Federal Confidentiality of Alcohol and Drug Abuse Patient Records regulations: The Federal rules restrict any use of the information to criminally investigate or prosecute any alcohol or drug abuse patient.[facility]In the event this information is protected by the Federal Confidentiality of Alcohol and Drug Abuse Patient Records regulations: The Federal rules restrict any use of the information to criminally investigate or prosecute any alcohol or drug abuse patient.[facility]In the event this information is protected by the Federal Confidentiality of Alcohol and Drug Abuse Patient Records regulations: The Federal rules restrict any use of the information to criminally investigate or prosecute any alcohol or drug abuse patient.[facility]In the event this information is protected by the Federal Confidentiality of Alcohol and Drug Abuse Patient Records regulations: The Federal rules restrict any use of the information to criminally investigate or prosecute any alcohol or drug abuse patient.[facility]In the event this information is protected by the Federal Confidentiality of Alcohol and Drug Abuse Patient Records regulations: The Federal rules restrict any use of the information to criminally investigate or prosecute any alcohol or drug abuse patient.[facility]In the event this information is protected by the Federal Confidentiality of Alcohol and Drug Abuse Patient Records regulations: The Federal rules restrict any use of the information to criminally investigate or prosecute any alcohol or drug abuse patient.[facility]In the event this information is protected by the Federal Confidentiality of Alcohol and Drug Abuse Patient Records regulations: The Federal rules restrict any use of the information to criminally investigate or prosecute any alcohol or drug abuse patient.[facility]In the event this information is protected by the Federal Confidentiality of Alcohol and Drug Abuse Patient Records regulations: The Federal rules restrict any use of the information to criminally investigate or prosecute any alcohol or drug abuse patient.[facility]In the event this information is protected by the Federal Confidentiality of Alcohol and Drug Abuse Patient Records regulations: The Federal rules restrict any use of the information to criminally investigate or prosecute any alcohol or drug abuse patient.[facility]In the event this information is protected by the Federal Confidentiality of Alcohol and Drug Abuse Patient Records regulations: The Federal rules restrict any use of the information to criminally investigate or prosecute any alcohol or drug abuse patient.[facility]In the event this information is protected by the Federal Confidentiality of Alcohol and Drug Abuse Patient Records regulations: The Federal rules restrict any use of the information to criminally investigate or prosecute any alcohol or drug abuse patient.[facility]In the event this information is protected by the Federal Confidentiality of Alcohol and Drug Abuse Patient Records regulations: The Federal rules restrict any use of the information to criminally investigate or prosecute any alcohol or drug abuse patient.[facility]In the event this information is protected by the Federal Confidentiality of Alcohol and Drug Abuse Patient Records regulations: The Federal rules restrict any use of the information to criminally investigate or prosecute any alcohol or drug abuse patient.[facility]In the event this information is protected by the Federal Confidentiality of Alcohol and Drug Abuse Patient Records regulations: The Federal rules restrict any use of the information to criminally investigate or prosecute any alcohol or drug abuse patient.[facility]In the event this information is protected by the Federal Confidentiality of Alcohol and Drug Abuse Patient Records regulations: The Federal rules restrict any use of the information to criminally investigate or prosecute any alcohol or drug abuse patient.[facility]In the event this information is protected by the Federal Confidentiality of Alcohol and Drug Abuse Patient Records regulations: The Federal rules restrict any use of the information to criminally investigate or prosecute any alcohol or drug abuse patient.[facility]In the event this information is protected by the Federal Confidentiality of Alcohol and Drug Abuse Patient Records regulations: The Federal rules restrict any use of the information to criminally investigate or prosecute any alcohol or drug abuse patient.[facility]In the event this information is protected by the Federal Confidentiality of Alcohol and Drug Abuse Patient Records regulations: The Federal rules restrict any use of the information to criminally investigate or prosecute any alcohol or drug abuse patient.[facility]In the event this information is protected by the Federal Confidentiality of Alcohol and Drug Abuse Patient Records regulations: The Federal rules restrict any use of the information to criminally investigate or prosecute any alcohol or drug abuse patient.[facility]In the event this information is protected by the Federal Confidentiality of Alcohol and Drug Abuse Patient Records regulations: The Federal rules restrict any use of the information to criminally investigate or prosecute any alcohol or drug abuse patient.[facility]In the event this information is protected by the Federal Confidentiality of Alcohol and Drug Abuse Patient Records regulations: The Federal rules restrict any use of the information to criminally investigate or prosecute any alcohol or drug abuse patient.[facility]In the event this information is protected by the Federal Confidentiality of Alcohol and Drug Abuse Patient Records regulations: The Federal rules restrict any use of the information to criminally investigate or prosecute any alcohol or drug abuse patient.[facility]In the event this information is protected by the Federal Confidentiality of Alcohol and Drug Abuse Patient Records regulations: The Federal rules restrict any use of the information to criminally investigate or prosecute any alcohol or drug abuse patient.[facility]In the event this information is protected by the Federal Confidentiality of Alcohol and Drug Abuse Patient Records regulations: The Federal rules restrict any use of the information to criminally investigate or prosecute any alcohol or drug abuse patient.[facility]In the event this information is protected by the Federal Confidentiality of Alcohol and Drug Abuse Patient Records regulations: The Federal rules restrict any use of the information to criminally investigate or prosecute any alcohol or drug abuse patient.[facility]In the event this information is protected by the Federal Confidentiality of Alcohol and Drug Abuse Patient Records regulations: The Federal rules restrict any use of the information to criminally investigate or prosecute any alcohol or drug abuse patient.[facility]In the event this information is protected by the Federal Confidentiality of Alcohol and Drug Abuse Patient Records regulations: The Federal rules restrict any use of the information to criminally investigate or prosecute any alcohol or drug abuse patient.[facility]In the event this information is protected by the Federal Confidentiality of Alcohol and Drug Abuse Patient Records regulations: The Federal rules restrict any use of the information to criminally investigate or prosecute any alcohol or drug abuse patient.[facility]In the event this information is protected by the Federal Confidentiality of Alcohol and Drug Abuse Patient Records regulations: The Federal rules restrict any use of the information to criminally investigate or prosecute any alcohol or drug abuse patient.[facility]In the event this information is protected by the Federal Confidentiality of Alcohol and Drug Abuse Patient Records regulations: The Federal rules restrict any use of the information to criminally investigate or prosecute any alcohol or drug abuse patient.[facility]In the event this information is protected by the Federal Confidentiality of Alcohol and Drug Abuse Patient Records regulations: The Federal rules restrict any use of the information to criminally investigate or prosecute any alcohol or drug abuse patient.[facility]In the event this information is protected by the Federal Confidentiality of Alcohol and Drug Abuse Patient Records regulations: The Federal rules restrict any use of the information to criminally investigate or prosecute any alcohol or drug abuse patient.[facility]In the event this information is protected by the Federal Confidentiality of Alcohol and Drug Abuse Patient Records regulations: The Federal rules restrict any use of the information to criminally investigate or prosecute any alcohol or drug abuse patient.[facility]In the event this information is protected by the Federal Confidentiality of Alcohol and Drug Abuse Patient Records regulations: The Federal rules restrict any use of the information to criminally investigate or prosecute any alcohol or drug abuse patient.[facility]In the event this information is protected by the Federal Confidentiality of Alcohol and Drug Abuse Patient Records regulations: The Federal rules restrict any use of the information to criminally investigate or prosecute any alcohol or drug abuse patient.[facility]In the event this information is protected by the Federal Confidentiality of Alcohol and Drug Abuse Patient Records regulations: The Federal rules restrict any use of the information to criminally investigate or prosecute any alcohol or drug abuse patient.[facility]In the event this information is protected by the Federal Confidentiality of Alcohol and Drug Abuse Patient Records regulations: The Federal rules restrict any use of the information to criminally investigate or prosecute any alcohol or drug abuse patient.[facility]In the event this information is protected by the Federal Confidentiality of Alcohol and Drug Abuse Patient Records regulations: The Federal rules restrict any use of the information to criminally investigate or prosecute any alcohol or drug abuse patient.[facility]In the event this information is protected by the Federal Confidentiality of Alcohol and Drug Abuse Patient Records regulations: The Federal rules restrict any use of the information to criminally investigate or prosecute any alcohol or drug abuse patient.[facility]In the event this information is protected by the Federal Confidentiality of Alcohol and Drug Abuse Patient Records regulations: The Federal rules restrict any use of the information to criminally investigate or prosecute any alcohol or drug abuse patient.[facility]In the event this information is protected by the Federal Confidentiality of Alcohol and Drug Abuse Patient Records regulations: The Federal rules restrict any use of the information to criminally investigate or prosecute any alcohol or drug abuse patient.[facility]In the event this information is protected by the Federal Confidentiality of Alcohol and Drug Abuse Patient Records regulations: The Federal rules restrict any use of the information to criminally investigate or prosecute any alcohol or drug abuse patient.[facility]In the event this information is protected by the Federal Confidentiality of Alcohol and Drug Abuse Patient Records regulations: The Federal rules restrict any use of the information to criminally investigate or prosecute any alcohol or drug abuse patient.[facility] HospitalIn the event this information is protected by the Federal Confidentiality of Alcohol and Drug Abuse Patient Records regulations: The Federal rules restrict any use of the information to criminally investigate or prosecute any alcohol or drug abuse patient.[facility] HospitalIn the event this information is protected by the Federal Confidentiality of Alcohol and Drug Abuse Patient Records regulations: The Federal rules restrict any use of the information to criminally investigate or prosecute any alcohol or drug abuse patient.[facility] HospitalIn the event this information is protected by the Federal Confidentiality of Alcohol and Drug Abuse Patient Records regulations: The Federal rules restrict any use of the information to criminally investigate or prosecute any alcohol or drug abuse patient.[facility] HospitalIn the event this information is protected by the Federal Confidentiality of Alcohol and Drug Abuse Patient Records regulations: The Federal rules restrict any use of the information to criminally investigate or prosecute any alcohol or drug abuse patient.[facility] HospitalIn the event this information is protected by the Federal Confidentiality of Alcohol and Drug Abuse Patient Records regulations: The Federal rules restrict any use of the information to criminally investigate or prosecute any alcohol or drug abuse patient.[facility] HospitalIn the event this information is protected by the Federal Confidentiality of Alcohol and Drug Abuse Patient Records regulations: The Federal rules restrict any use of the information to criminally investigate or prosecute any alcohol or drug abuse patient.[facility] HospitalIn the event this information is protected by the Federal Confidentiality of Alcohol and Drug Abuse Patient Records regulations: The Federal rules restrict any use of the information to criminally investigate or prosecute any alcohol or drug abuse patient.[facility] HospitalIn the event this information is protected by the Federal Confidentiality of Alcohol and Drug Abuse Patient Records regulations: The Federal rules restrict any use of the information to criminally investigate or prosecute any alcohol or drug abuse patient.[facility] HospitalIn the event this information is protected by the Federal Confidentiality of Alcohol and Drug Abuse Patient Records regulations: The Federal rules restrict any use of the information to criminally investigate or prosecute any alcohol or drug abuse patient.[facility] HospitalIn the event this information is protected by the Federal Confidentiality of Alcohol and Drug Abuse Patient Records regulations: The Federal rules restrict any use of the information to criminally investigate or prosecute any alcohol or drug abuse patient.[facility] HospitalIn the event this information is protected by the Federal Confidentiality of Alcohol and Drug Abuse Patient Records regulations: The Federal rules restrict any use of the information to criminally investigate or prosecute any alcohol or drug abuse patient.[facility] HospitalIn the event this information is protected by the Federal Confidentiality of Alcohol and Drug Abuse Patient Records regulations: The Federal rules restrict any use of the information to criminally investigate or prosecute any alcohol or drug abuse patient.[facility] HospitalIn the event this information is protected by the Federal Confidentiality of Alcohol and Drug Abuse Patient Records regulations: The Federal rules restrict any use of the information to criminally investigate or prosecute any alcohol or drug abuse patient.[facility] HospitalIn the event this information is protected by the Federal Confidentiality of Alcohol and Drug Abuse Patient Records regulations: The Federal rules restrict any use of the information to criminally investigate or prosecute any alcohol or drug abuse patient.[facility] HospitalIn the event this information is protected by the Federal Confidentiality of Alcohol and Drug Abuse Patient Records regulations: The Federal rules restrict any use of the information to criminally investigate or prosecute any alcohol or drug abuse patient.[facility] HospitalIn the event this information is protected by the Federal Confidentiality of Alcohol and Drug Abuse Patient Records regulations: The Federal rules restrict any use of the information to criminally investigate or prosecute any alcohol or drug abuse patient.[facility] HospitalIn the event this information is protected by the Federal Confidentiality of Alcohol and Drug Abuse Patient Records regulations: The Federal rules restrict any use of the information to criminally investigate or prosecute any alcohol or drug abuse patient.[facility] HospitalIn the event this information is protected by the Federal Confidentiality of Alcohol and Drug Abuse Patient Records regulations: The Federal rules restrict any use of the information to criminally investigate or prosecute any alcohol or drug abuse patient.[facility] HospitalIn the event this information is protected by the Federal Confidentiality of Alcohol and Drug Abuse Patient Records regulations: The Federal rules restrict any use of the information to criminally investigate or prosecute any alcohol or drug abuse patient.[facility] HospitalIn the event this information is protected by the Federal Confidentiality of Alcohol and Drug Abuse Patient Records regulations: The Federal rules restrict any use of the information to criminally investigate or prosecute any alcohol or drug abuse patient.[facility] HospitalIn the event this information is protected by the Federal Confidentiality of Alcohol and Drug Abuse Patient Records regulations: The Federal rules restrict any use of the information to criminally investigate or prosecute any alcohol or drug abuse patient.[facility] HospitalIn the event this information is protected by the Federal Confidentiality of Alcohol and Drug Abuse Patient Records regulations: The Federal rules restrict any use of the information to criminally investigate or prosecute any alcohol or drug abuse patient.[facility] HospitalIn the event this information is protected by the Federal Confidentiality of Alcohol and Drug Abuse Patient Records regulations: The Federal rules restrict any use of the information to criminally investigate or prosecute any alcohol or drug abuse patient.[facility] HospitalIn the event this information is protected by the Federal Confidentiality of Alcohol and Drug Abuse Patient Records regulations: The Federal rules restrict any use of the information to criminally investigate or prosecute any alcohol or drug abuse patient.[facility] HospitalIn the event this information is protected by the Federal Confidentiality of Alcohol and Drug Abuse Patient Records regulations: The Federal rules restrict any use of the information to criminally investigate or prosecute any alcohol or drug abuse patient.[facility] HospitalIn the event this information is protected by the Federal Confidentiality of Alcohol and Drug Abuse Patient Records regulations: The Federal rules restrict any use of the information to criminally investigate or prosecute any alcohol or drug abuse patient.[facility] HospitalIn the event this information is protected by the Federal Confidentiality of Alcohol and Drug Abuse Patient Records regulations: The Federal rules restrict any use of the information to criminally investigate or prosecute any alcohol or drug abuse patient.[facility] HospitalIn the event this information is protected by the Federal Confidentiality of Alcohol and Drug Abuse Patient Records regulations: The Federal rules restrict any use of the information to criminally investigate or prosecute any alcohol or drug abuse patient.[facility] HospitalIn the event this information is protected by the Federal Confidentiality of Alcohol and Drug Abuse Patient Records regulations: The Federal rules restrict any use of the information to criminally investigate or prosecute any alcohol or drug abuse patient.[facility] HospitalIn the event this information is protected by the Federal Confidentiality of Alcohol and Drug Abuse Patient Records regulations: The Federal rules restrict any use of the information to criminally investigate or prosecute any alcohol or drug abuse patient.[facility] HospitalIn the event this information is protected by the Federal Confidentiality of Alcohol and Drug Abuse Patient Records regulations: The Federal rules restrict any use of the information to criminally investigate or prosecute any alcohol or drug abuse patient.[facility] HospitalIn the event this information is protected by the Federal Confidentiality of Alcohol and Drug Abuse Patient Records regulations: The Federal rules restrict any use of the information to criminally investigate or prosecute any alcohol or drug abuse patient.[facility] HospitalIn the event this information is protected by the Federal Confidentiality of Alcohol and Drug Abuse Patient Records regulations: The Federal rules restrict any use of the information to criminally investigate or prosecute any alcohol or drug abuse patient.[facility] HospitalIn the event this information is protected by the Federal Confidentiality of Alcohol and Drug Abuse Patient Records regulations: The Federal rules restrict any use of the information to criminally investigate or prosecute any alcohol or drug abuse patient.[facility] HospitalIn the event this information is protected by the Federal Confidentiality of Alcohol and Drug Abuse Patient Records regulations: The Federal rules restrict any use of the information to criminally investigate or prosecute any alcohol or drug abuse patient.[facility] HospitalIn the event this information is protected by the Federal Confidentiality of Alcohol and Drug Abuse Patient Records regulations: The Federal rules restrict any use of the information to criminally investigate or prosecute any alcohol or drug abuse patient.[facility] HospitalIn the event this information is protected by the Federal Confidentiality of Alcohol and Drug Abuse Patient Records regulations: The Federal rules restrict any use of the information to criminally investigate or prosecute any alcohol or drug abuse patient.[facility] HospitalIn the event this information is protected by the Federal Confidentiality of Alcohol and Drug Abuse Patient Records regulations: The Federal rules restrict any use of the information to criminally investigate or prosecute any alcohol or drug abuse patient.[facility] HospitalIn the event this information is protected by the Federal Confidentiality of Alcohol and Drug Abuse Patient Records regulations: The Federal rules restrict any use of the information to criminally investigate or prosecute any alcohol or drug abuse patient.[facility] HospitalIn the event this information is protected by the Federal Confidentiality of Alcohol and Drug Abuse Patient Records regulations: The Federal rules restrict any use of the information to criminally investigate or prosecute any alcohol or drug abuse patient.[facility] HospitalIn the event this information is protected by the Federal Confidentiality of Alcohol and Drug Abuse Patient Records regulations: The Federal rules restrict any use of the information to criminally investigate or prosecute any alcohol or drug abuse patient.[facility] HospitalIn the event this information is protected by the Federal Confidentiality of Alcohol and Drug Abuse Patient Records regulations: The Federal rules restrict any use of the information to criminally investigate or prosecute any alcohol or drug abuse patient.[facility] HospitalIn the event this information is protected by the Federal Confidentiality of Alcohol and Drug Abuse Patient Records regulations: The Federal rules restrict any use of the information to criminally investigate or prosecute any alcohol or drug abuse patient.[facility] HospitalIn the event this information is protected by the Federal Confidentiality of Alcohol and Drug Abuse Patient Records regulations: The Federal rules restrict any use of the information to criminally investigate or prosecute any alcohol or drug abuse patient.[facility] HospitalIn the event this information is protected by the Federal Confidentiality of Alcohol and Drug Abuse Patient Records regulations: The Federal rules restrict any use of the information to criminally investigate or prosecute any alcohol or drug abuse patient.[facility] HospitalIn the event this information is protected by the Federal Confidentiality of Alcohol and Drug Abuse Patient Records regulations: The Federal rules restrict any use of the information to criminally investigate or prosecute any alcohol or drug abuse patient.[facility] HospitalIn the event this information is protected by the Federal Confidentiality of Alcohol and Drug Abuse Patient Records regulations: The Federal rules restrict any use of the information to criminally investigate or prosecute any alcohol or drug abuse patient.[facility] HospitalIn the event this information is protected by the Federal Confidentiality of Alcohol and Drug Abuse Patient Records regulations: The Federal rules restrict any use of the information to criminally investigate or prosecute any alcohol or drug abuse patient.[facility] HospitalIn the event this information is protected by the Federal Confidentiality of Alcohol and Drug Abuse Patient Records regulations: The Federal rules restrict any use of the information to criminally investigate or prosecute any alcohol or drug abuse patient.[facility] HospitalIn the event this information is protected by the Federal Confidentiality of Alcohol and Drug Abuse Patient Records regulations: The Federal rules restrict any use of the information to criminally investigate or prosecute any alcohol or drug abuse patient.[facility] HospitalIn the event this information is protected by the Federal Confidentiality of Alcohol and Drug Abuse Patient Records regulations: The Federal rules restrict any use of the information to criminally investigate or prosecute any alcohol or drug abuse patient.[facility] HospitalIn the event this information is protected by the Federal Confidentiality of Alcohol and Drug Abuse Patient Records regulations: The Federal rules restrict any use of the information to criminally investigate or prosecute any alcohol or drug abuse patient.[facility] HospitalIn the event this information is protected by the Federal Confidentiality of Alcohol and Drug Abuse Patient Records regulations: The Federal rules restrict any use of the information to criminally investigate or prosecute any alcohol or drug abuse patient.[facility] HospitalIn the event this information is protected by the Federal Confidentiality of Alcohol and Drug Abuse Patient Records regulations: The Federal rules restrict any use of the information to criminally investigate or prosecute any alcohol or drug abuse patient.[facility] Reason for Visit (unrecogniz ed section and content) Reason Comments Consult Lung Cancer Reason Comments FMLA Paperwork Reason Comments 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 LOW HR ISSUES, RECENTLY DIAGNOSED [...] 11/17/2024 Specialty Diagnoses / Procedures Referred By Contac t Referred To Contact Radiation Oncology Diagnoses Malignant neoplasm of lower lobe of right lung (HCC) Procedures RAD/ONC CONSULT OFFICE/OUTPATIENT NEW HIGH MDM 60 MINUTES Vennepureddy, Rasheed, MD [address] [place] [address] [place] [address] Phone: tel: fax: Referral ID Status Reason Start Date Expiration Date V isits Requested Visits Authorized [id number] Closed PCP Requested Referral 11/03/2024 10/27/2025 1 1 Reason Comments Follow-up add on ov -per ser-s cheduled w/pt-ok per ser r/s w pt from am appt due to oncology appt ok per cathie Reason Comments Device Check Reason Comments Radiology CT Specialty Diagnoses / Procedures Referred By Contac t Referred To Contact CT IMAGING Diagnoses Malignant neoplasm of lower lobe of right lung (HCC) Procedures CT BRAIN WO IVCON CT HEAD/BRAIN W/O CONTRAST MATERIAL Rasheed Perez MD [address] [place] [address] [place] [address] Phone: tel: fax: [place] [phone] Referral ID Status Reason Start Date Expiration Date V isits Requested Visits Authorized [id number] Closed Auto-Generate d Referral 11/28/2024 06/13/2025 1 1 Reason Comments Care Coordination Clinical update Reason Comments Care Coordination results Reason Comments Care Coordination Foundation one testi ng question Reason Comments Care Coordination P.T. Reason Comments Future Appointment Reason Comments Care Coordination Hospital admission Reason Comments Care Coordination Discharge Follow Up Call Reason Comments Care Coordination Potassium Results Reason Comments Lung Cancer Reason Comments Lung Cancer OTV Reason Comments Care Coordination C1D1 treatment follo w up call Reason Comments Care Coordination Appointment question Reason Onset Date Comments Low BP 01/08/2025 Reason Onset Date Comments New AF 12/25/2024 PPM upper rate behavior 12/25/2024 Reason Comments Patient Update Appointment Reason Comments Pulse Monitoring Reason Comments Lung Cancer Reason Comments Pain Shortness of Breath Specialty Diagnoses / Procedures Referred By Contac t Referred To Contact Hospice & Palliative Medicine Diagnoses Malignant neoplasm of lower lobe of right lung (HCC) Procedures OFFICE/OUTPATIENT NEW HIGH MDM 60 MINUTES Rasheed Perez MD [address] [place] [address] [place] [address] Phone: tel: fax: Referral ID Status Reason Start Date Expiration Date V isits Requested Visits Authorized [id number] Closed PCP Requested Referral 01/09/2025 01/02/2026 1 1 Reason Comments Care Coordination Hospital Admission Reason Comments Dehydration Weakness Reason Comments Patient Update Dizziness Reason Comments Radiology NM 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 [employer] provides no warranty or guarantee of the accuracy or completeness of information in this document.
--- OUTSIDE RECORDS SUMMARY | 2025-02-18 17:44 | XMS_ITS | Encounter Summary ---
Author Organization [facility] Address [address] [place] [address] Care Team Providers Care Training Development Specialist Name Role Phone Brandi Alvarado CCIE.HOMICIDE DETECTIVE Primary Care Provider Blanquita Hargrove RN Unavailable [phone] Kvng Perez MD Unavailable [phone] Annel Alas Unavailable Unavailable Ricardo Alva RN Unavailable Unava ilable Kisha Craig CCIE.HOMICIDE DETECTIVE Unavailable + Source Comments In the event this information is protected by the Federal Confidentiality of Alcohol and Drug AbusePatient Records regulations: The Federal rules restrict any use of the information to criminally investigate or prosecute any alcohol or drug abuse patient.[facility] Reason for Visit * Reason Comments Financial Assistance Encounter Details Date Type Department Care Team (Late st Contact Info) Description 02/14/2025 Telephone Radiation Oncology [address] [place] [address] [place] [address] Ezra Moreno MD [address] [place] [address] [place] [address] Financial Assistance Social History Tobacco Use Types Packs/Day Years [...] is lower risk 9 11/15/2024 Data from: https://www.neighborhoodatlas.medicine.[facility]/. Last address used for calculation [address] 11/15/2024 Sex and Gender Information Value Date Recorded Sex Assigned at Not on file Legal Sex Male 8:04 AM EST Gender Identity Not on file Sexual Orientation Not on file documented as of this encounter Miscellaneous Notes * Telephone Encounter - Macy Oviedo RN - 02/14/2025 2:01 PM EDT Pt has seen display designer in the past. I will copy them on this info to see if they can be of assistance in recommending this. Macy Oviedo RN * Telephone Encounter - Macy Oviedo RN - 02/14/2025 11:59 AM EDT Annel- can you possibly look into pts information and see if he would qualify for the [facility] assistance for nutritional supplements? Pt is relying primarily on supplements and I suggested they switch to [facility] to get more calories in as he is losing weight consistently. She was interested in possible assistance but not sure of qualifications. Thank you Macy Oviedo RN documented in this encounter Plan of Treatment Upcoming Encounters Date Type Department Care Team (Latest Contact Info) Description 02/19/2025 11:45 AM EDT Appointment Radiation Oncology [address] [place] [address] [place] [address] Lung 02/19/2025 11:45 AM EDT Nurse Visit Radiation Oncology [address] [place] [address] [place] [address] Mae, Nurse Radt [address] [facility] [place] [address] pulse monitoring 02/20/2025 10:30 AM EDT Office Visit Palliative Medicine [address] [facility] [place] [address] Kisha Craig, CCIE.HOMICIDE DETECTIVE [address] [id number] 4 week follow up 02/20/2025 11:45 AM EDT Appointment Radiation Oncology [address] [facility] [place] [address] Lung- Pall med 10:30 02/20/2025 11:45 AM EDT Nurse Visit Radiation Oncology [address] [facility] [place] [address] Mae, Nurse Radt [address] [facility] [place] [address] pulse monitoring 02/21/2025 8:00 AM EDT Appointment Radiation Oncology [address] [facility] [place] [address] Lung - 845 LAB, 9 MILLS, 930 CHEMO x6 HRS 02/21/2025 8:45 AM EDT Office Visit [facility] [address] [facility] [place] [address] lab follow up and chemotx Cisplatin + IV MAG - PUT PATIENT BACK ON Wednesday02/21/2025 9:00 AM EDT Visit (SP) Office Hematology/Oncology [address] [facility] [place] [address] Kvng Perez MD [address] [facility] [place] [address] lab follow up and chemotx Cisplatin + IV MAG - PUT PATIENT BACK ON Wednesday02/21/2025 9:30 AM EDT [facility] Hematology/Oncology [address] [facility] [place] [address] Mae, Chair [address] [facility] [place] [address] lab follow up and chemotx Cisplatin + IV MAG - PUT PATIENT BACK ON Wednesday02/21/2025 11:45 AM EDT Nurse Visit Radiation Oncology [address] [facility] [place] [address] Mae, Nurse Radt [address] [facility] [place] [address] pulse monitoring 02/21/2025 12:00 PM EDT Office Visit Radiation Oncology [address] [facility] [place] [address] Ezra Moreno MD [address] [facility] [place] [address] Location: -ON TREATMENT REV 02/22/2025 11:45 AM EDT Appointment Radiation Oncology [address] [facility] [place] [address] Lung 02/22/2025 11:45 AM EDT Nurse Visit Radiation Oncology [address] [facility] [place] [address] Sharkey, Nurse Radt [address] [place] [address] [place] [address] pulse monitoring 05/28/2025 11:30 AM EST Office Visit Radiation Oncology [address] [place] [address] [place] [address] Ezra Moreno MD [address] [facility] [place] [address] 3-4 month final radiation follow up documented as of this encounter Visit Diagnoses Not on filedocumented in this encounter Care Teams Training Development Specialist Relationship Specialty Start Date End Date Brandi Alvarado, CCIE.HOMICIDE DETECTIVE [facility] [place] [address] PCP - General Nurse Practitioner 10/27/24 Blanquita Hargrove RN [address] [facility] [place] [address] Specialty Data Engineer Hematology/Oncology 11/29/24 Kvng Perez MD [address] [facility] [place] [address] Physician Hematology/Oncology 11/29/24 Annel Alas LSW Inward Toll Operator 01/08/25 Ricardo Alva, RN Specialty Data Engineer Hospice & Palliative Medicine 01/23/25 Kisha Craig, VINAY.HOMICIDE DETECTIVE [address] [facility] [place] [address] Hospice & Palliative Medicine 01/23/25 documented as of this encounter
--- OUTSIDE RECORDS SUMMARY | 2025-02-18 17:44 | XMS_ITS | Encounter Summary ---
Author Organization [facility] Address [address] [place] [address] Care Team Providers Care Supervisor Shipping Name Role Phone Brandi Alvarado TOOL ROOM MACHINIST.APPOINTMENT CLERK Primary Care Provider Blanquita Hargrove RN Unavailable [phone] Kvng Perez MD Unavailable [phone] Annel Alas Unavailable Unavailable Ricardo Alva RN Unavailable Unava ilable Kisha Craig TOOL ROOM MACHINIST.APPOINTMENT CLERK Unavailable + Source Comments In the event this information is protected by the Federal Confidentiality of Alcohol and Drug AbusePatient Records regulations: The Federal rules restrict any use of the information to criminally investigate or prosecute any alcohol or drug abuse patient.[facility] Reason for Visit * Reason Comments Future Appointment Encounter Details Date Type Department Care Team (Late st Contact Info) Description 02/14/2025 Telephone Cancer Appts [place] [address] Gaetano Nathan MD [facility] [place] [address] Future Appointment Social History Tobacco Use Types [...] is lower risk 9 11/15/2024 Data from: https://www.neighborhoodatlas.medicine.[facility]/. Last address used for calculation [address] 11/15/2024 Sex and Gender Information Value Date Recorded Sex Assigned at Not on file Legal Sex Male 8:04 AM EST Gender Identity Not on file Sexual Orientation Not on file documented as of this encounter Miscellaneous Notes * Telephone Encounter - Katie Valle - 02/14/2025 4:27 PM EDT 1 unit packed RBC's at [facility] on 02-15-25. Went today 02-14-25 for lab draw. Order was faxed. documented in this encounter Plan of Treatment Upcoming Encounters Date Type Department Care Team (Latest Contact Info) Description 02/19/2025 11:45 AM EDT Appointment Radiation Oncology [address] [place] [address] [place] [address] Lung 02/19/2025 11:45 AM EDT Nurse Visit Radiation Oncology [place] [address] Mae, Nurse Radt [address] [place] [address] [place] [address] pulse monitoring 02/20/2025 10:30 AM EDT Office Visit Palliative Medicine [facility] [place] [address] Kisha Craig, TOOL ROOM MACHINIST.APPOINTMENT CLERK [address] [place] [address] 4 week follow up 02/20/2025 11:45 AM EDT Appointment Radiation Oncology [address] [facility] [place] [address] Lung- Pall med 10:30 02/20/2025 11:45 AM EDT Nurse Visit Radiation Oncology [address] [place] [address] Mae, Nurse Radt [address] [facility] [place] [address] pulse monitoring 02/21/2025 8:00 AM EDT Appointment Radiation Oncology [address] [place] [address] Lung - 845 LAB, 9 MILLS, 930 CHEMO x6 HRS 02/21/2025 8:45 AM EDT Office Visit [facility] [address] [facility] [place] [address] lab follow up and chemotx Cisplatin + IV MAG - PUT PATIENT BACK ON Wednesday02/21/2025 9:00 AM EDT Visit (SP) Office Hematology/Oncology [address] [facility] [place] [address] Kvng Perez MD [address] [facility] [place] [address] lab follow up and chemotx Cisplatin + IV MAG - PUT PATIENT BACK ON Wednesday02/21/2025 9:30 AM EDT [facility] Hematology/Oncology [address] [facility] [place] [address] Mae, Chair 7 [address] [facility] [place] [address] lab follow up and chemotx Cisplatin + IV MAG - PUT PATIENT BACK ON Wednesday02/21/2025 11:45 AM EDT Nurse Visit Radiation Oncology [address] [facility] [place] [address] Mae, Nurse Radt [address] [facility] [place] [address] pulse monitoring 02/21/2025 12:00 PM EDT Office Visit Radiation Oncology [address] [facility] [place] [address] Ezra Moreno MD [address] [facility] [place] [address] Location: -ON TREATMENT REV 02/22/2025 11:45 AM EDT Appointment Radiation Oncology [address] [facility] [place] [address] Lung 02/22/2025 11:45 AM EDT Nurse Visit Radiation Oncology [address] [facility] [place] [address] Mae, Nurse Radt [address] [facility] [place] [address] pulse monitoring 05/28/2025 11:30 AM EST Office Visit Radiation Oncology [facility] [place] [address] Ezra Moreno MD [address] [facility] [place] [address] 3-4 month final radiation follow up documented as of this encounter Visit Diagnoses Not on filedocumented in this encounter Care Teams Supervisor Shipping Relationship Specialty Start Date End Date Brandi Alvarado, TOOL ROOM MACHINIST.APPOINTMENT CLERK [address] [place] [address] PCP - General Nurse Practitioner 10/27/24 Blanquita Hargrove RN [address] [place] [address] [place] [address] Specialty Switchboard Operator Supervisor Hematology/Oncology 11/29/24 Kvng Perez MD [address] [place] [address] [place] [address] Physician Hematology/Oncology 11/29/24 Annel Alas LSW Machine Wood Sander 01/08/25 Ricardo Alva, RN Specialty Switchboard Operator Supervisor Hospice & Palliative Medicine 01/23/25 Kisha Craig, TOOL ROOM MACHINIST.APPOINTMENT CLERK [address] [place] [address] [place] [address] Hospice & Palliative Medicine 01/23/25 documented as of this encounter
--- OUTSIDE RECORDS SUMMARY | 2025-02-18 17:44 | XMS_ITS | Encounter Summary ---
Author Organization [employer] s tem Address [id number] [address] [place] [address] Care Team Providers Care School Cafeteria Cook Head Name Role Phone Jenny, BrandiJasmin MCLEAN-MATTRESS INSPECTOR Primary Care Provider [phone] Encounter Details Date Type Department Care Team (Late st Contact Info) Description 11/10/2024 Telephone [facility] [address] [place] [phone] Milla Metcalf Social History Tobacco Use Types Packs/Day Years Used Date Smoking Tobacco: Former Cigarettes Q uit: 01/04/2017 Smokeless Tobacco: Never Alcohol Use Standard Drinks/Week Comments Not Currently 0 (1 standard drink = 0.6 oz pur e alcohol) [facility] Utilities Answer Date Recorded In the past 12 months has th e [employer], gas, oil, or water company threatened to [...] - 11/10/2024 7:45 AM EDT Carla PERLA dispatcher maintenance will call to schedule at MB documented in this encounter Plan of Treatment Upcoming Encounters Date Type Department Care Team (Late st Contact Info) Description 05/30/2025 11:30 AM EST Clinical Support [facility] [address] [place] [address] 05/30/2025 12:30 PM EST Office Visit [facility] [address] [place] [address] Bishop Milan, SEASONAL TAX PREPARER-MATTRESS INSPECTOR [address] [place] [address] documented as of this encounter Goals Goal [...] documented as of this encounter Care Teams School Cafeteria Cook Head Relationship Specialty Start Date End Date Brandi Alvarado APRN-ABBEY [address] [place] [address] PCP - General Nurse Practitioner 11/08/24 documented as of this encounter
--- OUTSIDE RECORDS SUMMARY | 2025-02-18 17:44 | XMS_ITS | Encounter Summary ---
Author Organization [facility] [employer] Address [id number] [address] [place] [address] Care Team Providers Care Auto Body Repairer Name Role Phone Brandi Alvarado Janeth MCLEAN-TEENAGE BABYSITTER Primary Care Provider [phone] Encounter Details Date Type Department Care Team (Late st Contact Info) Description 11/08/2024 Orders Only [facility] [address] [place] [phone] External, Scanning Provider Social History Tobacco Use Types Packs/Day Years Used Date Smoking Tobacco: Former Cigarettes Q uit: 01/04/2017 Smokeless Tobacco: Never Alcohol Use Standard Drinks/Week Comments Yes 0 (1 standard drink = 0.6 oz pur e alcohol) [facility] Utilities Answer Date Recorded In [...] Support [facility] [address] [place] [address] 05/30/2025 12:30 PM EST Office Visit [facility] [address] [place] [address] Bishop Milan, BRASS BOBBIN WINDER-TEENAGE BABYSITTER [address] [place] [address] documented as of this encounter Goals Goal [...] 3:45 PM EDT) us Scanning Provider External [facility] Final Result MANUALLY TRANSCRIBED RESULTS * [...] ECG ORDERABLES Final Result Performing Organization Address City/[facility] Co de Phone Number MANUALLY TRANSCRIBED RESULTS documented in this encounter Visit Diagnoses Not on filedocumented in this encounter Additional Health Concerns Assessment Noted Time PHQ-9 Depression Total Score: 0 12/18/19 17 3:00 PM EDT documented as of this encounter Care Teams Auto Body Repairer Relationship Specialty Start Date End Date Brandi Alvarado, VINAY-TEENAGE BABYSITTER [address] [place] [address] PCP - General Nurse Practitioner 11/08/24 documented as of this encounter
--- OUTSIDE RECORDS SUMMARY | 2025-02-18 17:44 | XMS_ITS | Encounter Summary ---
Author Organization [facility] Address [address] [place] [address] Care Team Providers Care Cuff Stitcher Name Role Phone Brandi Alvarado CD TECHNICIAN.ELECTRONIC BENCH TECHNICIAN Primary Care Provider Blanquita Hargrove RN Unavailable [phone] Kvng Perez MD Unavailable [phone] Annel Alas Unavailable Unavailable Ricardo Alva RN Unavailable Unava ilable Kisha Craig CD TECHNICIAN.ELECTRONIC BENCH TECHNICIAN Unavailable + Source Comments In the event this information is protected by the Federal Confidentiality of Alcohol and Drug AbusePatient Records regulations: The Federal rules restrict any use of the information to criminally investigate or prosecute any alcohol or drug abuse patient.[facility] Encounter Details Date Type Department Care Team (Late st Contact Info) Description 02/15/2025 Clinical Document [facility] [address] Provider, Ccf Social History Tobacco Use Types Packs/Day Years [...] is lower risk 9 11/15/2024 Data from: https://www.neighborhoodatlas.medicine.[facility].edu/. Last address used for calculation [address] [...] 11:45 AM EDT Appointment Radiation Oncology [address] [facility] [place] [address] Lung 02/19/2025 11:45 AM EDT Nurse Visit Radiation Oncology [address] [facility] [place] [address] Mae, Nurse Radt [address] [facility] [place] [address] pulse monitoring 02/20/2025 10:30 AM EDT Office Visit Palliative Medicine [address] [facility] [place] [address] Kisha Craig, CD TECHNICIAN.ELECTRONIC BENCH TECHNICIAN [address] [place] [address] 4 week follow up 02/20/2025 11:45 AM EDT Appointment Radiation Oncology [address] [facility] [address] Lung- Pall med 10:30 02/20/2025 11:45 AM EDT Nurse Visit Radiation Oncology [address] [facility] [place] [address] Mae, Nurse Radt [address] [facility] [address] pulse monitoring 02/21/2025 8:00 AM EDT Appointment Radiation Oncology [address] [facility] [address] Lung - 845 LAB, 9 MILLS, 930 CHEMO x6 HRS 02/21/2025 8:45 AM EDT Office Visit [facility] [address] [facility] [place] [address] lab follow up and chemotx Cisplatin + IV MAG - PUT PATIENT BACK ON Wednesday02/21/2025 9:00 AM EDT Visit (SP) Office Hematology/Oncology [address] [facility] [place] [address] Kvng Perez MD [address] [facility] [place] [address] lab follow up and chemotx Cisplatin + IV MAG - PUT PATIENT BACK ON Wednesday02/21/2025 9:30 AM EDT [facility] Hematology/Oncology [address] [facility] [place] [place] [address] Mae, Chair 7 [address] [facility] [place] [address] lab follow up and chemotx Cisplatin + IV MAG - PUT PATIENT BACK ON Wednesday02/21/2025 11:45 AM EDT Nurse Visit Radiation Oncology [address] [facility] [place] [address] Mae, Nurse Radt [address] [facility] [place] [address] pulse monitoring 02/21/2025 12:00 PM EDT Office Visit Radiation Oncology [address] [facility] [place] [address] Ezra Moreno MD [address] [facility] [place] [address] Location: SA-ON TREATMENT REV 02/22/2025 11:45 AM EDT Appointment Radiation Oncology [address] [facility] [place] [address] Lung 02/22/2025 11:45 AM EDT Nurse Visit Radiation Oncology [address] [facility] [place] [address] Mae, Nurse Radt [address] [facility] [place] [address] pulse monitoring 05/28/2025 11:30 AM EST Office Visit Radiation Oncology [address] [facility] [place] [place] [address] Ezra Moreno MD [address] [facility] [place] [address] 3-4 month final radiation follow up documented as of this encounter Visit Diagnoses Not on filedocumented in this encounter Care Teams Cuff Stitcher Relationship Specialty Start Date End Date Brandi Alvarado, CD TECHNICIAN.ELECTRONIC BENCH TECHNICIAN [address] [place] [address] PCP - General Nurse Practitioner 10/27/24 Blanquita Hargrove, RN [address] [place] [address] [place] [address] Specialty Skilled Nursing Case Manager Hematology/Oncology 11/29/24 Kvng Perez MD [address] [place] [address] [place] [address] Physician Hematology/Oncology 11/29/24 Annel Alas LSW Concrete Conveyor Operator 01/08/25 Ricardo Alva, RN Specialty Skilled Nursing Case Manager Hospice & Palliative Medicine 01/23/25 Kisha Craig, CD TECHNICIAN.ELECTRONIC BENCH TECHNICIAN [address] [place] [address] [place] [id number] Hospice & Palliative Medicine 01/23/25 documented as of this encounter
--- OUTSIDE RECORDS SUMMARY | 2025-02-18 17:44 | XMS_ITS | Encounter Summary ---
Author Organization [facility] [employer] s tem Address [facility]-[id number] [address] [place] [address] Care Team Providers Care Biblical Languages Professor Name Role Phone Brandi Alvarado Janeth MCLEAN-PROCUREMENT CLERK Primary Care Provider [phone] Reason for Visit * Reason Onset Date Comments Elevated RA Threshold 11/20/2024 Encounter Details Date Type Department Care Team (Late st Contact Info) Description 11/21/2024 Telephone [facility] Cardiology [address] [place] [phone] Carolin Forrest RN Elevated RA Threshold Social History Tobacco Use Types Packs/Day Years Used Date Smoking Tobacco: Former Cigarettes Q uit: 01/04/2017 Smokeless Tobacco: Never Alcohol Use Standard Drinks/Week Comments Not Currently 0 (1 standard drink = 0.6 oz pur e alcohol) [facility] Utilities Answer Date Recorded In the past 12 months has [employer], gas, oil, or water company threatened to [...] Patient has a dual PPM implanted by [facility] on 11/09/24. Wound check scheduled with SER on 11/22/24. First device check scheduled for 12/07/24. Received a call from [place] at the [facility] Device [facility]. Patient's device was checked while he was at [facility] for a Bronchoscopy. Device interrogation reveals elevated RA threshold at 4.5V @ 0.4ms. Outputs were reprogrammed to 5V @ 0.4ms. Full check scanned into media. Please advise while [facility] is on vacation. Thanks! * Telephone Encounter [...] CXR. States he will try going to [facility] today after his gets home. Order placed. * Telephone Encounter - Robert Veloz MD - 11/21/2024 9:15 AM EDT CXR reviewed, does not appear to have significant RA lead positional change. Minimal RA pacing burden, device indication was for intermittent complete heart block. No urgent need for revision. * Telephone Encounter - Heavenly Ryder RN - 11/21/2024 9:15 AM EDT In-Clinic device check performed today. Elevated RA threshold. RA threshold 5V@0.4ms bipolar 2.3V@1.0ms bipolar 1.6V@1.0ms unipolar P wave 5.4mV; RA impedance: 600 ohms Reprogrammed RA pulse width 0.4ms to 1.0ms RA Amp trend 5V to 4.5V Kept bipolar programming Ap 4%, Surgeon Assistant 100%. Underlying rhythm sinus with CHB. RV lead trends stable. Patient had a more recent cxr completed on 12/05/24 at [facility] d/t fevers. Patient to start radiation treatment. Will start another encounter for device management during tx. Reviewed with SER in office. * Telephone Encounter - Robert Veloz MD - 11/21/2024 9:15 AM EDT Thank you! documented in this encounter Plan of Treatment Upcoming Encounters Date Type Department Care Team (Late st Contact Info) Description 05/30/2025 11:30 AM EST Clinical Support [facility] [address] [place] [phone] 05/30/2025 12:30 PM EST Office Visit [facility] [address] [place] [address] Bishop Milan, FUR PULLER-PROCUREMENT CLERK [address] [place] [address] documented as of this encounter Goals Goal [...] documented as of this encounter Care Teams Biblical Languages Professor Relationship Specialty Start Date End Date Brandi Alvarado APRN-ABBEY [address] [place] [address] PCP - General Nurse Practitioner 11/08/24 documented as of this encounter
--- OUTSIDE RECORDS SUMMARY | 2025-02-18 17:44 | XMS_ITS | Encounter Summary ---
Author Organization [facility] Address [address] [place] [id number] Care Team Providers Care Virtual Classroom Manager Name Role Phone Brandi Alvarado CIVIL DESIGNER.NUCLEAR REACTOR OPERATOR Primary Care Provider Blanquita Hargrove RN Unavailable [phone] Kvng Perez MD Unavailable [phone] Annel Alas Unavailable Unavailable Ricardo Alva RN Unavailable Unava ilable Kisha Craig CIVIL DESIGNER.NUCLEAR REACTOR OPERATOR Unavailable + Source Comments In the event this information is protected by the Federal Confidentiality of Alcohol and Drug AbusePatient Records regulations: The Federal rules restrict any use of the information to criminally investigate or prosecute any alcohol or drug abuse patient.[facility] Encounter Details Date Type Department Care Team (Late st Contact Info) Description 02/14/2025 Results Follow-Up Gynecology Oncology [facility] [address] Kvng Perez MD [facility] [address] Social History Tobacco Use Types Packs/Day [...] is lower risk 9 11/15/2024 Data from: https://www.neighborhoodatlas.medicine.[facility] Last address used for calculation [address] 11/15/2024 Sex and Gender Information Value Date Recorded Sex Assigned at Not on file Legal Sex Male 8:04 AM EST Gender Identity Not on file Sexual Orientation Not on file documented as of this encounter Miscellaneous Notes * Telephone Encounter - Kvng Perez MD - 02/14/2025 11:25 AM EDT Order 1 unit prbc transfusion for the anemia. Thank you documented in this encounter Plan of Treatment Upcoming Encounters Date Type Department Care Team (Latest Contact Info) Description 02/19/2025 11:45 AM EDT Appointment Radiation Oncology [address] [place] [address] [place] [address] Lung 02/19/2025 11:45 AM EDT Nurse Visit Radiation Oncology [address] [place] [address] Mae, Nurse Radt [address] [place] [address] [place] [address] pulse monitoring 02/20/2025 10:30 AM EDT Office Visit Palliative Medicine [facility] [address] Kisha Craig, CIVIL DESIGNER.NUCLEAR REACTOR OPERATOR [address] [place] [address] 4 week follow up 02/20/2025 11:45 AM EDT Appointment Radiation Oncology [address] [place] [address] [place] [address] Lung- Pall med 10:30 02/20/2025 11:45 AM EDT Nurse Visit Radiation Oncology [address] [facility] [place] [address] Mae, Nurse Radt [address] [facility] [address] pulse monitoring 02/21/2025 8:00 AM EDT Appointment Radiation Oncology [address] [facility] [place] [address] Lung - 845 LAB, 9 [address]ILL[address], 930 CHEMO x6 HRS 02/21/2025 8:45 AM EDT Office Visit [facility] Laboratory [address] [facility] [address] lab follow up and chemotx Cisplatin + IV MAG - PUT PATIENT BACK ON Wednesday02/21/2025 9:00 AM EDT Visit (SP) Office Hematology/Oncology [address] [facility] [address] Kvng Perez MD [address] [facility] [address] lab follow up and chemotx Cisplatin + IV MAG - PUT PATIENT BACK ON Wednesday02/21/2025 9:30 AM EDT [facility] Hematology/Oncology [address] [facility] [place] [address] Mae, Chair [address] [address] lab follow up and chemotx Cisplatin + IV MAG - PUT PATIENT BACK ON Wednesday02/21/2025 11:45 AM EDT Nurse Visit Radiation Oncology [address] [facility] [address] aMe, Nurse Radt [address] [facility] [address] pulse monitoring 02/21/2025 12:00 PM EDT Office Visit Radiation Oncology [address] [facility] [address] Ezra Moreno MD [address] [facility] [address] Location: -ON TREATMENT REV 02/22/2025 11:45 AM EDT Appointment Radiation Oncology [address] [place] [address] Lung 02/22/2025 11:45 AM EDT Nurse Visit Radiation Oncology [address] [place] [address] Mae, Nurse Radt [address] [place] [address] pulse monitoring 05/28/2025 11:30 AM EST Office Visit Radiation Oncology [facility] [place] [address] Ezra Moreno MD [address] [facility] [address] 3-4 month final radiation follow up documented as of this encounter Visit Diagnoses Not on filedocumented in this encounter Care Teams Virtual Classroom Manager Relationship Specialty Start Date End Date Brandi Alvarado, CIVIL DESIGNER.NUCLEAR REACTOR OPERATOR [address] [place] [address] PCP - General Nurse Practitioner 10/27/24 Blanquita Hargrove, RN [facility] [place] [address] Specialty Edge Roller Hematology/Oncology 11/29/24 Kvng Perez MD [address] [place] [address] [place] [address] Physician Hematology/Oncology 11/29/24 Annel Alas LSW Residential Living Assistant 01/08/25 Ricardo Alva, RN Specialty [facility] Hospice & Palliative Medicine 01/23/25 Kisha Craig, CIVIL DESIGNER.NUCLEAR REACTOR OPERATOR [facility] [place] [address] Hospice & Palliative Medicine 01/23/25 documented as of this encounter
--- NOTE | 2025-02-18 17:52 | XR_ITS ---
[place] [id number] Patient Name: JATIN KOCH MRN: [id number] date: 1960 Sex: M Assigned Patient Location: ER Current Patient Location: ER Accession/Order Number: [id number] Exam Date: 02/18/2025 18:00 Report Date: 02/18/2025 18:14 At the request of: ROSAURA SESAY Procedure: XR chest 1V Single view chest: CLINICAL HISTORY: Chest pain COMPARISON: None FINDINGS: The heart is normal in size. Right lower lobe airspace disease. Left lung appears clear. No pneumothorax or free air. IMPRESSION: RIGHT LOWER LOBE AIRSPACE DISEASE. Impression dictated by: John Johnson Jr.ORocky 02/18/2025 6:14 PM Dictation Location: [place] [address] Electronically authenticated by: [id number] Y Date: 02/18/2025 18:14
[2025-02-18 18:08] LABS: Hematocrit 25.4 % (42.0-54.0); Hemoglobin 8.2 g/dL (14.0-18.0); Mean Corpuscular HGB Conc 32.3 g/dL (29.9-35.2); Mean Corpuscular Hemoglobin 26.2 pg (25.9-34.0); Mean Corpuscular Volume 81.2 fL (80.0-94.0); Platelet Count 85 10^3/uL (150-450); Red Blood Count 3.13 10^6/uL (4.70-6.10); White Blood Count 2.6 10^3/uL (4.0-11.0)
[2025-02-18] MEDS: 0.9 % SODIUM CHLORIDE 1,000 ML 1000 ML IV ×2 (18:14→19:13)
[2025-02-18 18:26] LABS: Band Neutrophils Absolute 0.1 10^3/uL (0.0-0.3); Basophils Abs Manual 0.05 10^3/uL (0.00-0.10); Basophils Percent Manual 2.0 % (0.2-2.0); Eosinophils Absolute Manual 0.13 10^3/uL (0.00-0.70); Eosinophils Percent Manual 5.0 % (0.9-7.0); Lactate/Lactic Acid 1.4 mmol/L (0.4-2.0); Lymphocytes Absolute Manual 0.41 10^3/uL (1.20-3.80); Lymphocytes Percent Manual 16.0 % (20.5-60.0); Monocytes Absolute Manual 0.10 10^3/uL (0.30-0.80); Monocytes Percent Manual 4.0 % (1.7-12.0); Segmented Neut Absolute Manual 1.79 10^3/uL (1.4-6.5); Segmented Neutrophils % Manual 69.0 (43.0-75.0)
[2025-02-18 18:33] LABS: Alanine Aminotransferase 17 U/L (16-63); Albumin Globulin Ratio 0.5; Albumin Level 2.8 g/dL (3.4-5.0); Alkaline Phosphatase 107 U/L (46-116); Anion Gap 17.5; Aspartate Amino Transferase 21 U/L (15-37); Blood Urea Nitrogen 18.0 mg/dL (7.0-18.0); Calcium 9.0 mg/dL (8.5-10.1); Carbon Dioxide 23.8 mmol/L (21.0-32.0); Chloride 101 mmol/L (98-107); Estimated GFR (African America >60 (>=60 mL/min/1.73m^2); Estimated GFR (Non-African Ame >60 (>=60 mL/min/1.73m^2); Globulin 5.3 g/dL; Glucose 118 mg/dL (74-106); Potassium 3.3 mmol/L (3.5-5.1); Sodium 139 mmol/L (136-145); Total Protein 8.1 g/dL (6.4-8.2)
--- NOTE | 2025-02-18 18:38 | ED.GENADUL1 ---
HPI HPI - General Adult General Chief complaint: Chest Pain Stated complaint: CHEST PAIN, SOB Time Seen by Provider: 02/18/25 17:33 Source: patient Mode of arrival: Wheelchair Limitations: no limitations History of Present Illness HPI narrative: Patient is a 63-year-old male presenting to the emergency department for concerns of chest pain. Patient states that this morning, he noticed that every time he swallows, he has substernal chest pain. He feels like food gets stuck and he has sharp pain lasting approximate 10 seconds before self resolving. He states he was recently initiated on chemoradiation for newly diagnosed lung cancer. His oncologist was concern for radiation-induced esophagitis, but wanted him to be evaluated the emergency department for any other possible conditions. He denies any significant chest pain or shortness of breath at this time. No nausea or vomiting. No fevers or chills. He is not on anticoagulation. He denies history of DVT/PE. No leg leg swelling. No hemoptysis. Related Data Home Medications ?Medication ?Instructions ?Recorded ?Confirmed acetaminophen 325 mg tablet 650 mg PO Q6H PRN pain 10/12/24 02/18/25 (Tylenol) ondansetron HCl 8 mg tablet 8 mg PO Q12H PRN nausea and 12/15/24 02/18/25 vomiting prochlorperazine maleate 10 mg 10 mg PO Q12H PRN nausea and 12/15/24 02/18/25 tablet vomiting allopurinol 300 mg tablet 300 mg PO BID 02/18/25 02/18/25 baclofen 10 mg tablet 10 mg PO TID PRN hiccups 02/18/25 02/18/25 benzonatate 100 mg capsule 200 mg PO BID 02/18/25 02/18/25 chlorpromazine 25 mg tablet 25 mg PO TID PRN hiccups 02/18/25 02/18/25 colchicine 0.6 mg tablet 0.6 mg PO DAILY 02/18/25 02/18/25 cyclobenzaprine 10 mg tablet 10 mg PO BEDTIME 02/18/25 02/18/25 indomethacin 50 mg capsule 50 mg PO TID PRN GOUT 02/18/25 02/18/25 ipratropium bromide 21 mcg (0.03 2 spray intranasal BID 02/18/25 02/18/25 %) nasal spray loratadine 10 mg tablet (Allergy 10 mg PO DAILY 02/18/25 02/18/25 Relief (loratadine)) metoprolol succinate 50 mg 50 mg PO DAILY 02/18/25 02/18/25 tablet,extended release 24 hr midodrine 2.5 mg tablet 2.5 mg PO TID 02/18/25 02/18/25 mirtazapine 7.5 mg tablet 7.5 mg PO BEDTIME 02/18/25 02/18/25 oxycodone 5 mg tablet 5 mg PO Q4H PRN pain 02/18/25 02/18/25 sennosides 8.6 mg-docusate sodium 1 tab PO DAILY 02/18/25 02/18/25 50 mg tablet (Senna Plus) sertraline 50 mg tablet 50 mg PO Q24H 02/18/25 02/18/25 Previous Rx's ?Medication ?Instructions ?Recorded dextromethorphan-guaifenesin 30 1 tab PO DAILY PRN cough #0 tabs 12/22/24 mg-600 mg tablet extended hr (Mucinex DM) Allergies Allergy/AdvReac Type Severity Reaction Status Date / Time codeine Allergy Severe Flushing Verified 02/18/25 17:37 sulfamethoxazole (From AdvReac Severe difficulty Verified 02/18/25 17:37 Bactrim) urinating trimethoprim (From Bactrim) AdvReac Severe Unknown Verified 02/18/25 17:37 Opioid HPI Opioid Management Most Recent Opioid Data: Last Pain Scale 8 Today, 17:37 Last MAR Pain Assessment 02/15/25, 08:30 Last ORT Total Score 0 12/15/24, 20:34 Last ORT Risk Category Low Risk 12/15/24, 20:34 Review of Systems ROS Status of ROS 10 or more systems reviewed and unremarkable except as noted in history and below [facility] Medical History (Updated 12/26/24 @ 00:00 by ) Severe protein-calorie malnutrition ?E43 - Unspecified severe protein-calorie malnutrition (ICD-10) Hypomagnesemia ?E83.42 - Hypomagnesemia (ICD-10) Iron deficiency anemia ?D50.9 - Iron deficiency anemia, unspecified (ICD-10) Orthostatic hypotension ?I95.1 - Orthostatic hypotension (ICD-10) Right bundle branch block ?I45.10 - Unspecified right bundle-branch block (ICD-10) Intraventricular conduction delay ?I45.9 - Conduction disorder, unspecified (ICD-10) Squamous cell lung cancer ?C34.90 - Malignant neoplasm of unspecified part of unspecified bronchus or lung (ICD-10) Immune deficiency disorder ?D84.9 - Immunodeficiency, unspecified (ICD-10) Vertigo ?R42 - Dizziness and giddiness (ICD-10) Recurrent syncope ?R55 - Syncope and collapse (ICD-10) Acute kidney injury ?N17.9 - Acute kidney failure, unspecified (ICD-10) Leukocytosis ?D72.829 - Elevated white blood cell count, unspecified (ICD-10) Respiratory distress ?R06.03 - Acute respiratory distress (ICD-10) Lactic acidosis ?E87.20 - Acidosis, unspecified (ICD-10) Lung cancer, lower lobe ?C34.30 - Malignant neoplasm of lower lobe, unspecified bronchus or lung (ICD-10) RLL pneumonia ?J18.9 - Pneumonia, unspecified organism (ICD-10) Carpal tunnel syndrome ?G56.00 - Carpal tunnel syndrome, unspecified upper limb (ICD-10) Back pain ?M54.9 - Dorsalgia, unspecified (ICD-10) Arthritis ?M19.90 - Unspecified osteoarthritis, unspecified site (ICD-10) Snores ?R06.83 - Snoring (ICD-10) Sleep apnea ?G47.30 - Sleep apnea, unspecified (ICD-10) Influenza ?J11.1 - Influenza due to unidentified influenza virus with other respiratory manifestations (ICD-10) Right lower lobe lung mass ?R91.8 - Other nonspecific abnormal finding of lung field (ICD-10) Skin cancer ?C44.90 - Unspecified malignant neoplasm of skin, unspecified (ICD-10) Hypoxia ?R09.02 - Hypoxemia (ICD-10) 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 - Shortness of breath (ICD-10) ?U09.9 - Post covid-19 condition, unspecified (ICD-10) HTN (hypertension) ?I10 - Essential (primary) hypertension (ICD-10) KERR (dyspnea on exertion) ?R06.09 - Other forms of dyspnea (ICD-10) Pneumonia ?J18.9 - Pneumonia, unspecified organism (ICD-10) COVID-19 ?U07.1 - COVID-19 (ICD-10) History of COVID-19 ?Z86.16 - Personal history of COVID-19 (ICD-10) Surgical History (Updated 10/12/24 @ 12:46 by Macy Goodrich NP) H/O transurethral resection of prostate ?Z98.890 - Other specified postprocedural states (ICD-10) ?Z90.79 - Acquired absence of other genital organ(s) (ICD-10) History of colonoscopy ?Z98.890 - Other specified postprocedural states (ICD-10) History of myringotomy ?Z98.890 - Other specified postprocedural states (ICD-10) History of carpal tunnel release ?Z98.890 - Other specified postprocedural states (ICD-10) History of carpal tunnel surgery ?Z98.890 - Other specified postprocedural states (ICD-10) History of tonsillectomy ?Z90.89 - Acquired absence of other organs (ICD-10) Family History (Updated 10/06/24 @ 23:50 by Svetlana [place] RN) Father Family history of myocardial infarction Son Family history of stroke Other Family history of CHF (congestive heart failure) Social History (Updated 11/04/24 @ 02:55 by Mary Ellen Mary) Within the past year, how often did you have a drink containing alcohol: never Score interpretation: A score less than 4 is consistent with normal alcohol consumption. Smoking status: Former smoker Non-prescribed substance use: denies use Previous occupational history: retired Highest level of school completed/degree received: Associate degree: academic program Are you now , , , , never or living with a partner: In a typical week, how many times do you talk on the telephone with family, friends, or neighbors: once per week How often do you get together with friends or relatives: once per week Little interest or pleasure in doing things: not at all Feeling down, depressed, or hopeless: not at all Do you think of yourself as: straight/heterosexual Gender Identity: male Exam Narrative Exam Narrative: CONSTITUTIONAL: Awake, alert, appears uncomfortable but no in significant distress, speaking in full sentences SKIN: Skin is warm, dry and he appears pale. EYES: Conjunctival pallor. EARS, NOSE, THROAT: No JVD RESPIRATORY: There are crackles at the right base. Lungs are otherwise clear to auscultation bilaterally. No use of accessory muscles. No respiratory distress. No wheezing. CARDIOVASCULAR: Tachycardic rate and regular rhythm. There is no S3, S4, murmur, rub. GASTROINTESTINAL: Abdomen was non-distended. MUSCULOSKELETAL: There was no lower extremity edema, erythema, or tenderness. NEUROLOGIC: Patient is awake and alert. Facies were symmetrical. Constitutional Vital Signs, click to edit/add: Last Vital Signs Temp 97.7 F 02/18/25 17:37 Pulse 131 H 02/18/25 17:37 Resp 16 02/18/25 17:37 BP 107/87 02/18/25 17:37 Pulse Ox 98 02/18/25 17:37 O2 Del Method Room Air 02/18/25 17:37 Course Vital Signs Vital signs: Vital Signs Temperature 97.7 F 02/18/25 17:37 Pulse Rate 131 H 02/18/25 17:37 Respiratory Rate 16 02/18/25 17:37 Blood Pressure 107/87 02/18/25 17:37 Pulse Oximetry 98 02/18/25 17:37 Oxygen Delivery Method Room Air 02/18/25 17:37 Temperature 97.7 F 02/18/25 17:37 Pulse Rate 131 H 02/18/25 17:37 Respiratory Rate 16 02/18/25 17:37 Blood Pressure 107/87 02/18/25 17:37 Pulse Oximetry 98 02/18/25 17:37 Oxygen Delivery Method Room Air 02/18/25 17:37 Medical Decision Making MDM Narrative Medical decision making narrative: Patient is a 64-year-old male, history significant for lung cancer on chemoradiation, presenting to the emergency department for evaluation of substernal chest pain beginning this morning. The pain is notable only when he swallows, and only last 10 seconds before self resolving. His oncologist is concerned for radiation-induced of esophagitis. His vitals are significant for tachycardia, otherwise were within normal limits. He is afebrile and hemodynamically stable. He is saturating 98% on room air. He is in no respiratory distress and not complaining of active chest pain until he starts swallowing. Differential diagnose includes radiation-induced esophagitis, GERD, esophageal spasm, ACS, arrhythmia, pneumothorax, postobstructive pneumonia, external esophageal compression from mediastinal mass, pulmonary embolism, or other intrathoracic pathology. CT angiogram of the chest was obtained. IV was established and laboratory studies were obtained. He was given 1 L bolus normal saline for treatment. 12 Lead EKG: Ventricularly paced rhythm at a tachycardic rate of 121. Normal axis. No significant ST segment elevations. Unchanged compared to prior EKG from December 2024. Final impression: Ventricularly paced rhythm at a tachycardic rate. No evidence of acute myocardial ischemia Chest x-ray demonstrated right lower airspace disease. No pneumothorax. Laboratory studies were remarkable for leukopenia, likely related to recent chemotherapy administration. No neutropenia. No electrolyte or metabolic derangements otherwise. No evidence of acute renal injury. No transaminitis or hyperbilirubinemia. Troponin not elevated. My shift is now coming to an end. At the time of signout to Dr. Jeffrey, CT PE was pending. FINAL IMPRESSION: #Acute substernal chest pain #History of lung cancer on chemoradiation DISPOSITION: Signed out to the oncoming ED physician CONDITION: Fair Medical Records Medical records reviewed: Yes I reviewed the patient's medical records Lab Data Lab results reviewed: Yes I reviewed the patient's lab results Labs: Lab Results 02/18/25 Range/Units 17:55 WBC 2.6 L (4.0-11.0) 10^3/uL RBC 3.13 L (4.70-6.10) 10^6/uL Hgb 8.2 L (14.0-18.0) g/dL Hct 25.4 L (42.0-54.0) % MCV 81.2 (80.0-94.0) fL MCH 26.2 (25.9-34.0) pg MCHC 32.3 (29.9-35.2) g/dL RDW 15.9 H (11.0-15.0) % Plt Count 85 L (150-450) 10^3/uL Seg Neuts % (Manual) 69.0 (43.0-75.0) Band Neutrophils % 4.0 (0-5) % Lymphocytes % (Manual) 16.0 L (20.5-60.0) % Monocytes % (Manual) 4.0 (1.7-12.0) % Eosinophils % (Manual) 5.0 (0.9-7.0) % Basophils % (Manual) 2.0 (0.2-2.0) % Neutrophils # (Manual) 1.79 (1.4-6.5) 10^3/uL Band Neutrophils # 0.1 (0.0-0.3) 10^3/uL Lymphocytes # (Manual) 0.41 L (1.20-3.80) 10^3/uL Monocytes # (Manual) 0.10 L (0.30-0.80) 10^3/uL Eosinophils # (Manual) 0.13 (0.00-0.70) 10^3/uL Basophils # (Manual) 0.05 (0.00-0.10) 10^3/uL Sodium 139 (136-145) mmol/L Potassium 3.3 L (3.5-5.1) mmol/L Chloride 101 (98-107) mmol/L Carbon Dioxide 23.8 (21.0-32.0) mmol/L Anion Gap 17.5 BUN 18.0 (7.0-18.0) mg/dL Creatinine 0.91 (0.70-1.30) mg/dL Est GFR ( Amer) >60 (>=60 mL/min/1.73m^2) Est GFR (Non-Af Amer) >60 (>=60 mL/min/1.73m^2) BUN/Creatinine Ratio 19.8 Glucose 118 H (74-106) mg/dL Lactate 1.4 (0.4-2.0) mmol/L Calcium 9.0 (8.5-10.1) mg/dL Total Bilirubin 0.5 (0.2-1.0) mg/dL AST 21 (15-37) U/L ALT 17 (16-63) U/L Alkaline Phosphatase 107 (46-116) U/L Troponin I High Sens 16.8 (4.0-76.1) pg/mL Total Protein 8.1 (6.4-8.2) g/dL Albumin 2.8 L (3.4-5.0) g/dL Globulin 5.3 g/dL Albumin/Globulin Ratio 0.5 Imaging Data Chest x-ray: Attestation: I personally reviewed and interpreted this imaging study as follows: ECG Data Attestation: I personally reviewed and interpreted this ECG as follows: Discharge Plan Discharge Patient Disposition: Still a Patient
--- NOTE | 2025-02-18 19:30 | ED.GENADUL1 ---
Documented by User: SHAMA Hampton 02/18/25 22:42 HPI HPI - General Adult General Chief complaint: Chest Pain Stated complaint: CHEST PAIN, SOB Time Seen by Provider: 02/18/25 17:33 Source: patient Mode of arrival: Wheelchair Limitations: no limitations History of Present Illness HPI narrative: Patient is a 64-year-old male presenting to the emergency department for concerns of chest pain that started this morning, he noticed that every time he swallows, he has substernal chest pain. He feels like food gets stuck and he has sharp pain lasting approximate 10 seconds before self resolving. He states he was recently initiated on chemoradiation for newly diagnosed lung cancer. His oncologist was concern for radiation-induced esophagitis, but wanted him to be evaluated the emergency department for any other possible conditions. He follows with Dr Perez and Dr Moreno at the [facility] and gets his radiation at a facility in [place]. He was unable to get his chemo last week as his hemoglobin was 7 and his platelet count was 76 (80 is desired level). He did get a unit of packed red blood cells here last Wednesday. He denies any significant chest pain or shortness of breath at this time. No nausea or vomiting. No fevers or chills. He is not on anticoagulation. He denies history of DVT/PE. No leg leg swelling. No hemoptysis. He did get a pacemaker placed in October. Related Data Home Medications ?Medication ?Instructions ?Recorded ?Confirmed acetaminophen 325 mg tablet 650 mg PO Q6H PRN pain 10/12/24 02/18/25 (Tylenol) ondansetron HCl 8 mg tablet 8 mg PO Q12H PRN nausea and 12/15/24 02/18/25 vomiting prochlorperazine maleate 10 mg 10 mg PO Q12H PRN nausea and 12/15/24 02/18/25 tablet vomiting allopurinol 300 mg tablet 300 mg PO BID 02/18/25 02/18/25 baclofen 10 mg tablet 10 mg PO TID PRN hiccups 02/18/25 02/18/25 benzonatate 100 mg capsule 200 mg PO BID 02/18/25 02/18/25 chlorpromazine 25 mg tablet 25 mg PO TID PRN hiccups 02/18/25 02/18/25 colchicine 0.6 mg tablet 0.6 mg PO DAILY 02/18/25 02/18/25 cyclobenzaprine 10 mg tablet 10 mg PO BEDTIME 02/18/25 02/18/25 indomethacin 50 mg capsule 50 mg PO TID PRN GOUT 02/18/25 02/18/25 ipratropium bromide 21 mcg (0.03 2 spray intranasal BID 02/18/25 02/18/25 %) nasal spray loratadine 10 mg tablet (Allergy 10 mg PO DAILY 02/18/25 02/18/25 Relief (loratadine)) metoprolol succinate 50 mg 50 mg PO DAILY 02/18/25 02/18/25 tablet,extended release 24 hr midodrine 2.5 mg tablet 2.5 mg PO TID 02/18/25 02/18/25 mirtazapine 7.5 mg tablet 7.5 mg PO BEDTIME 02/18/25 02/18/25 oxycodone 5 mg tablet 5 mg PO Q4H PRN pain 02/18/25 02/18/25 sennosides 8.6 mg-docusate sodium 1 tab PO DAILY 02/18/25 02/18/25 50 mg tablet (Senna Plus) sertraline 50 mg tablet 50 mg PO Q24H 02/18/25 02/18/25 Previous Rx's ?Medication ?Instructions ?Recorded dextromethorphan-guaifenesin 30 1 tab PO DAILY PRN cough #0 tabs 12/22/24 mg-600 mg tablet extended [id number] hr (Mucinex DM) pantoprazole 40 mg tablet,delayed 40 mg PO DAILY 4 weeks #28 tabs 02/18/25 release (Protonix) Allergies Allergy/AdvReac Type Severity Reaction Status Date / Time codeine Allergy Severe Flushing Verified 02/18/25 17:37 sulfamethoxazole (From AdvReac Severe difficulty Verified 02/18/25 17:37 Bactrim) urinating trimethoprim (From Bactrim) AdvReac Severe Unknown Verified 02/18/25 17:37 Opioid HPI Opioid Management Most Recent Opioid Data: Last Pain Scale 8 02/18/25, 17:37 Last MAR Pain Assessment 02/15/25, 08:30 Last ORT Total Score 0 12/15/24, 20:34 Last ORT Risk Category Low Risk 12/15/24, 20:34 PFSH PFSH Medical History (Updated 02/18/25 @ 21:12 by Robert Jeffrey) Severe protein-calorie malnutrition ?E43 - Unspecified severe protein-calorie malnutrition (ICD-10) Hypomagnesemia ?E83.42 - Hypomagnesemia (ICD-10) Iron deficiency anemia ?D50.9 - Iron deficiency anemia, unspecified (ICD-10) Orthostatic hypotension ?I95.1 - Orthostatic hypotension (ICD-10) Right bundle branch block ?I45.10 - Unspecified right bundle-branch block (ICD-10) Intraventricular conduction delay ?I45.9 - Conduction disorder, unspecified (ICD-10) Squamous cell lung cancer ?C34.90 - Malignant neoplasm of unspecified part of unspecified bronchus or lung (ICD-10) Immune deficiency disorder ?D84.9 - Immunodeficiency, unspecified (ICD-10) Vertigo ?R42 - Dizziness and giddiness (ICD-10) Recurrent syncope ?R55 - Syncope and collapse (ICD-10) Acute kidney injury ?N17.9 - Acute kidney failure, unspecified (ICD-10) Leukocytosis ?D72.829 - Elevated white blood cell count, unspecified (ICD-10) Respiratory distress ?R06.03 - Acute respiratory distress (ICD-10) Lactic acidosis ?E87.20 - Acidosis, unspecified (ICD-10) Lung cancer, lower lobe ?C34.30 - Malignant neoplasm of lower lobe, unspecified bronchus or lung (ICD-10) RLL pneumonia ?J18.9 - Pneumonia, unspecified organism (ICD-10) Carpal tunnel syndrome ?G56.00 - Carpal tunnel syndrome, unspecified upper limb (ICD-10) Back pain ?M54.9 - Dorsalgia, unspecified (ICD-10) Arthritis ?M19.90 - Unspecified osteoarthritis, unspecified site (ICD-10) Snores ?R06.83 - Snoring (ICD-10) Sleep apnea ?G47.30 - Sleep apnea, unspecified (ICD-10) Influenza ?J11.1 - Influenza due to unidentified influenza virus with other respiratory manifestations (ICD-10) Right lower lobe lung mass ?R91.8 - Other nonspecific abnormal finding of lung field (ICD-10) Skin cancer ?C44.90 - Unspecified malignant neoplasm of skin, unspecified (ICD-10) Hypoxia ?R09.02 - Hypoxemia (ICD-10) 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 - Shortness of breath (ICD-10) ?U09.9 - Post covid-19 condition, unspecified (ICD-10) HTN (hypertension) ?I10 - Essential (primary) hypertension (ICD-10) KERR (dyspnea on exertion) ?R06.09 - Other forms of dyspnea (ICD-10) Pneumonia ?J18.9 - Pneumonia, unspecified organism (ICD-10) COVID-19 ?U07.1 - COVID-19 (ICD-10) History of COVID-19 ?Z86.16 - Personal history of COVID-19 (ICD-10) Surgical History (Updated 10/12/24 @ 12:46 by Macy Goodrich NP) H/O transurethral resection of prostate ?Z98.890 - Other specified postprocedural states (ICD-10) ?Z90.79 - Acquired absence of other genital organ(s) (ICD-10) History of colonoscopy ?Z98.890 - Other specified postprocedural states (ICD-10) History of myringotomy ?Z98.890 - Other specified postprocedural states (ICD-10) History of carpal tunnel release ?Z98.890 - Other specified postprocedural states (ICD-10) History of carpal tunnel surgery ?Z98.890 - Other specified postprocedural states (ICD-10) History of tonsillectomy ?Z90.89 - Acquired absence of other organs (ICD-10) Family History (Updated 10/06/24 @ 23:50 by Svetlana Kimball RN) Father Family history of myocardial infarction Son Family history of stroke Other Family history of CHF (congestive heart failure) Social History (Updated 11/04/24 @ 02:55 by Mary Ellen Mary) Within the past year, how often did you have a drink containing alcohol: never Score interpretation: A score less than 4 is consistent with normal alcohol consumption. Smoking status: Former smoker Non-prescribed substance use: denies use Previous occupational history: retired Highest level of school completed/degree received: Associate degree: academic program Are you now , , , , never or living with a partner: In a typical week, how many times do you talk on the telephone with family, friends, or neighbors: once per week How often do you get together with friends or relatives: once per week Little interest or pleasure in doing things: not at all Feeling down, depressed, or hopeless: not at all Do you think of yourself as: straight/heterosexual Gender Identity: male Exam Narrative Exam Narrative: General: No distress, age-appropriate Skin: Warm, dry, no pallor. No rash. Head: Normocephalic, atraumatic. Neck: Supple, non-tender. Eye: Pupils are equal, round and EOMI. No scleral icterus. Ears, Nose, Mouth, and Throat: No nasal mucosal hypertrophy. Oral mucosa is moist, no posterior oropharynx erythema, uvula is mid-line Cardiovascular: Tachycardic with regular Rhythm without murmur, gallop or rub. Respiratory: No accessory muscle use or respiratory distress. There are crackles at the right base. Lungs are otherwise clear to auscultation bilaterally. No use of accessory muscles. No respiratory distress. No wheezing. Chest Wall: no tenderness Musculoskeletal: Full ROM of all extremities, no calf or popliteal tenderness GI: Abdomen is soft, non-distended, non tender to palpation. No masses appreciated. No rebound, guarding, or rigidity noted. Neurological: A&O x4. No cranial nerve dysfunction observed. No truncal ataxia. Moves all extremities. Sensation intact. Psychiatric: Cooperative and interactive. Normal mood and affect. Constitutional Vital Signs, click to edit/add: Last Vital Signs Temp 97.7 F 02/18/25 17:37 Pulse 117 H 02/18/25 21:40 Resp 22 H 02/18/25 21:40 BP 104/66 02/18/25 21:30 Pulse Ox 95 02/18/25 21:30 O2 Del Method Room Air 02/18/25 17:37 Course Reevaluation(s) Reevaluation #1: CTA neg for PE, patient and updated with results. Patient laying comfortable on the ED cart in no distress. HR is around 112 and BP 109/66 on re-exam after 1.5L NS, 500ml left. I discussed that I am going to call the search consultant team with [facility] to update them on his status since they recommended that he report here for evaluation. Call put out to the Cancer team at . Time: 20:07 Reevaluation #2: I did speak with the on-call physician from [facility], Dr. Matt, who was familiar with the patient from them calling earlier. I did update her on the labs and studies, negative for PE. We did speak about his leukopenia as his white count was 2.6 in the setting of him being tachycardic on arrival, that has persisted during his ED course. She recommends that given we ruled out cardiac sources for chest pain that he be started on a BMX solution and antacid to get him more comfortable tonight and that they call the office at 8 AM tomorrow. He does have a radiation appointment at 11 AM scheduled. I did update patient and his that we are going to give him a GI cocktail here and have them call his physician Dr. Moreno's office first thing in the morning. Patient and voiced understanding. Time: 21:30 Vital Signs Vital signs: Vital Signs Temperature 97.7 F 02/18/25 17:37 Pulse Rate 131 H 02/18/25 17:37 Respiratory Rate 16 02/18/25 17:37 Blood Pressure 107/87 02/18/25 17:37 Pulse Oximetry 98 02/18/25 17:37 Oxygen Delivery Method Room Air 02/18/25 17:37 Temperature 97.7 F 02/18/25 17:37 Pulse Rate 117 H 02/18/25 21:40 Respiratory Rate 22 H 02/18/25 21:40 Blood Pressure 104/66 02/18/25 21:30 Pulse Oximetry 95 02/18/25 21:30 Oxygen Delivery Method Room Air 02/18/25 17:37 Medical Decision Making [facility] Narrative Medical decision making narrative: Patient is a 64-year-old male, history significant for lung cancer on chemoradiation, presenting to the emergency department for evaluation of substernal chest pain beginning this morning. The pain is notable only when he swallows, and only last 10 seconds before self resolving. His oncologist is concerned for radiation-induced of esophagitis. His vitals are significant for tachycardia, otherwise were within normal limits. He is afebrile and hemodynamically stable. He is saturating 98% on room air. He is in no respiratory distress and not complaining of active chest pain until he starts swallowing. CT angiogram of the chest was obtained. IV was established and laboratory studies were obtained. He was given 1 L bolus normal saline. 12 Lead EKG: Ventricularly paced rhythm at a tachycardic rate of 121. Normal axis. No significant ST segment elevations. Unchanged compared to prior EKG from December 2024. Final impression: Ventricularly paced rhythm at a tachycardic rate. No evidence of acute myocardial ischemia. Chest x-ray demonstrated right lower airspace disease. No pneumothorax. Patient was given another liter of normal saline as he was still tachycardic around 115. CTA chest resulted as no evidence for pulmonary embolism. Extensive thickening of the esophagus with confluent adjacent mediastinal soft tissue mass versus lymph node conglomerate. Constellation of findings is concerning for malignancy. Numerous consolidative and nodular opacities within bilateral lungs. Constellation of findings is concerning for malignancy versus multifocal infectious process. Results given to the on-call oncologist from [facility] as well as laboratory studies. Laboratory studies were remarkable for leukopenia, likely related to recent chemotherapy administration. No neutropenia. No electrolyte or metabolic derangements otherwise. No evidence of acute renal injury. No transaminitis or hyperbilirubinemia. Troponin not elevated. She recommended BMX solution and an antacid and to call his oncologist in the morning first thing at 8 AM. He does have a radiation appointment scheduled for 11 AM. GI cocktail ordered for here and plan will be to discharge with close follow up with Oncology. Patient signed out to Dr Jeffrey at 2200. Differential Diagnosis Differential Diagnosis: PE, ACS, pneumonia, radiation induced esophagitis, pneumothorax Lab Data Labs: Lab Results 02/18/25 Range/Units 17:55 WBC 2.6 L (4.0-11.0) 10^3/uL RBC 3.13 L (4.70-6.10) 10^6/uL Hgb 8.2 L (14.0-18.0) g/dL Hct 25.4 L (42.0-54.0) % MCV 81.2 (80.0-94.0) fL MCH 26.2 (25.9-34.0) pg MCHC 32.3 (29.9-35.2) g/dL RDW 15.9 H (11.0-15.0) % Plt Count 85 L (150-450) 10^3/uL Seg Neuts % (Manual) 69.0 (43.0-75.0) Band Neutrophils % 4.0 (0-5) % Lymphocytes % (Manual) 16.0 L (20.5-60.0) % Monocytes % (Manual) 4.0 (1.7-12.0) % Eosinophils % (Manual) 5.0 (0.9-7.0) % Basophils % (Manual) 2.0 (0.2-2.0) % Neutrophils # (Manual) 1.79 (1.4-6.5) 10^3/uL Band Neutrophils # 0.1 (0.0-0.3) 10^3/uL Lymphocytes # (Manual) 0.41 L (1.20-3.80) 10^3/uL Monocytes # (Manual) 0.10 L (0.30-0.80) 10^3/uL Eosinophils # (Manual) 0.13 (0.00-0.70) 10^3/uL Basophils # (Manual) 0.05 (0.00-0.10) 10^3/uL Sodium 139 (136-145) mmol/L Potassium 3.3 L (3.5-5.1) mmol/L Chloride 101 (98-107) mmol/L Carbon Dioxide 23.8 (21.0-32.0) mmol/L Anion Gap 17.5 BUN 18.0 (7.0-18.0) mg/dL Creatinine 0.91 (0.70-1.30) mg/dL Est GFR ( Amer) >60 (>=60 mL/min/1.73m^2) Est GFR (Non-Af Amer) >60 (>=60 mL/min/1.73m^2) BUN/Creatinine Ratio 19.8 Glucose 118 H (74-106) mg/dL Lactate 1.4 (0.4-2.0) mmol/L Calcium 9.0 (8.5-10.1) mg/dL Total Bilirubin 0.5 (0.2-1.0) mg/dL AST 21 (15-37) U/L ALT 17 (16-63) U/L Alkaline Phosphatase 107 (46-116) U/L Troponin I High Sens 16.8 (4.0-76.1) pg/mL Total Protein 8.1 (6.4-8.2) g/dL Albumin 2.8 L (3.4-5.0) g/dL Globulin 5.3 g/dL Albumin/Globulin Ratio 0.5 Discharge Plan Discharge Chief Complaint: Chest Pain Clinical Impression: Radiation gastritis, Chest pain Patient Disposition: Home, Self-Care Time of Disposition Decision: 21:11 Prescriptions / Home Meds: New pantoprazole [Protonix] 40 mg tablet,delayed release (DR/EC) 40 mg PO DAILY 28 Days Qty: 28 0RF No Action acetaminophen [Tylenol] 325 mg tablet 650 mg PO Q6H PRN (Reason: pain) prochlorperazine maleate 10 mg tablet 10 mg PO Q12H PRN (Reason: nausea and vomiting) ondansetron HCl 8 mg tablet 8 mg PO Q12H PRN (Reason: nausea and vomiting) Mucinex DM 30-600 mg tablet extended release 12 hr 1 tab PO DAILY PRN (Reason: cough) Qty: 0 0RF allopurinol 300 mg tablet 300 mg PO BID baclofen 10 mg tablet 10 mg PO TID PRN (Reason: hiccups) chlorpromazine 25 mg tablet 25 mg PO TID PRN (Reason: hiccups) benzonatate 100 mg capsule 200 mg PO BID cyclobenzaprine 10 mg tablet 10 mg PO BEDTIME indomethacin 50 mg capsule 50 mg PO TID PRN (Reason: GOUT) ipratropium bromide 21 mcg (0.03 %) spray,non-aerosol 2 spray INTRANASAL BID metoprolol succinate 50 mg tablet extended release 24 hr 50 mg PO DAILY midodrine 2.5 mg tablet 2.5 mg PO TID mirtazapine 7.5 mg tablet 7.5 mg PO BEDTIME sertraline 50 mg tablet 50 mg PO Q24H loratadine [Allergy Relief (loratadine)] 10 mg tablet 10 mg PO DAILY colchicine 0.6 mg tablet 0.6 mg PO DAILY oxycodone 5 mg tablet 5 mg PO Q4H PRN (Reason: pain) sennosides-docusate sodium [Senna Plus] 8.6-50 mg Tablet 1 tab PO DAILY Print Language: Amharic Instructions: Chest Pain (ED), Gastritis (ED) Additional Instructions: Call Dr Moreno's office at 8am tomorrow to discuss further therapy. [phone]. A handwritten prescription for BMX solution was also given to the patient Referrals: CARLOS COLLINS [Primary Care Provider, [facility]] - 1 week Discharge Date/Time: 02/18/25 22:24 Documented by User: Robert Wojciech 02/19/25 02:22 HPI HPI - General Adult General Chief complaint: Chest Pain Stated complaint: CHEST PAIN, SOB Time Seen by Provider: 02/18/25 17:33 Related Data Home Medications ?Medication ?Instructions ?Recorded ?Confirmed acetaminophen 325 mg tablet 650 mg PO Q6H PRN pain 10/12/24 02/18/25 (Tylenol) ondansetron HCl 8 mg tablet 8 mg PO Q12H PRN nausea and 12/15/24 02/18/25 vomiting prochlorperazine maleate 10 mg 10 mg PO Q12H PRN nausea and 12/15/24 02/18/25 tablet vomiting allopurinol 300 mg tablet 300 mg PO BID 02/18/25 02/18/25 baclofen 10 mg tablet 10 mg PO TID PRN hiccups 02/18/25 02/18/25 benzonatate 100 mg capsule 200 mg PO BID 02/18/25 02/18/25 chlorpromazine 25 mg tablet 25 mg PO TID PRN hiccups 02/18/25 02/18/25 colchicine 0.6 mg tablet 0.6 mg PO DAILY 02/18/25 02/18/25 cyclobenzaprine 10 mg tablet 10 mg PO BEDTIME 02/18/25 02/18/25 indomethacin 50 mg capsule 50 mg PO TID PRN GOUT 02/18/25 02/18/25 ipratropium bromide 21 mcg (0.03 2 spray intranasal BID 02/18/25 02/18/25 %) nasal spray loratadine 10 mg tablet (Allergy 10 mg PO DAILY 02/18/25 02/18/25 Relief (loratadine)) metoprolol succinate 50 mg 50 mg PO DAILY 02/18/25 02/18/25 tablet,extended release 24 hr midodrine 2.5 mg tablet 2.5 mg PO TID 02/18/25 02/18/25 mirtazapine 7.5 mg tablet 7.5 mg PO BEDTIME 02/18/25 02/18/25 oxycodone 5 mg tablet 5 mg PO Q4H PRN pain 02/18/25 02/18/25 sennosides 8.6 mg-docusate sodium 1 tab PO DAILY 02/18/25 02/18/25 50 mg tablet (Senna Plus) sertraline 50 mg tablet 50 mg PO Q24H 02/18/25 02/18/25 Previous Rx's ?Medication ?Instructions ?Recorded dextromethorphan-guaifenesin 30 1 tab PO DAILY PRN cough #0 tabs 12/22/24 mg-600 mg tablet extended hr (Mucinex DM) pantoprazole 40 mg tablet,delayed 40 mg PO DAILY 4 weeks #28 tabs 02/18/25 release (Protonix) Allergies Allergy/AdvReac Type Severity Reaction Status Date / Time codeine Allergy Severe Flushing Verified 02/18/25 17:37 sulfamethoxazole (From AdvReac Severe difficulty Verified 02/18/25 17:37 Bactrim) urinating trimethoprim (From Bactrim) AdvReac Severe Unknown Verified 02/18/25 17:37 Opioid HPI Opioid Management Most Recent Opioid Data: Last Pain Scale 8 02/18/25, 17:37 Last MAR Pain Assessment 02/15/25, 08:30 Last ORT Total Score 0 12/15/24, 20:34 Last ORT Risk Category Low Risk 12/15/24, 20:34 PFSH PFSH Medical History (Updated 02/18/25 @ 21:12 by Robert Jeffrey) Severe protein-calorie malnutrition ?E43 - Unspecified severe protein-calorie malnutrition (ICD-10) Hypomagnesemia ?E83.42 - Hypomagnesemia (ICD-10) Iron deficiency anemia ?D50.9 - Iron deficiency anemia, unspecified (ICD-10) Orthostatic hypotension ?I95.1 - Orthostatic hypotension (ICD-10) Right bundle branch block ?I45.10 - Unspecified right bundle-branch block (ICD-10) Intraventricular conduction delay ?I45.9 - Conduction disorder, unspecified (ICD-10) Squamous cell lung cancer ?C34.90 - Malignant neoplasm of unspecified part of unspecified bronchus or lung (ICD-10) Immune deficiency disorder ?D84.9 - Immunodeficiency, unspecified (ICD-10) Vertigo ?R42 - Dizziness and giddiness (ICD-10) Recurrent syncope ?R55 - Syncope and collapse (ICD-10) Acute kidney injury ?N17.9 - Acute kidney failure, unspecified (ICD-10) Leukocytosis ?D72.829 - Elevated white blood cell count, unspecified (ICD-10) Respiratory distress ?R06.03 - Acute respiratory distress (ICD-10) Lactic acidosis ?E87.20 - Acidosis, unspecified (ICD-10) Lung cancer, lower lobe ?C34.30 - Malignant neoplasm of lower lobe, unspecified bronchus or lung (ICD-10) RLL pneumonia ?J18.9 - Pneumonia, unspecified organism (ICD-10) Carpal tunnel syndrome ?G56.00 - Carpal tunnel syndrome, unspecified upper limb (ICD-10) Back pain ?M54.9 - Dorsalgia, unspecified (ICD-10) Arthritis ?M19.90 - Unspecified osteoarthritis, unspecified site (ICD-10) Snores ?R06.83 - Snoring (ICD-10) Sleep apnea ?G47.30 - Sleep apnea, unspecified (ICD-10) Influenza ?J11.1 - Influenza due to unidentified influenza virus with other respiratory manifestations (ICD-10) Right lower lobe lung mass ?R91.8 - Other nonspecific abnormal finding of lung field (ICD-10) Skin cancer ?C44.90 - Unspecified malignant neoplasm of skin, unspecified (ICD-10) Hypoxia ?R09.02 - Hypoxemia (ICD-10) 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 - Shortness of breath (ICD-10) ?U09.9 - Post covid-19 condition, unspecified (ICD-10) HTN (hypertension) ?I10 - Essential (primary) hypertension (ICD-10) KERR (dyspnea on exertion) ?R06.09 - Other forms of dyspnea (ICD-10) Pneumonia ?J18.9 - Pneumonia, unspecified organism (ICD-10) COVID-19 ?U07.1 - COVID-19 (ICD-10) History of COVID-19 ?Z86.16 - Personal history of COVID-19 (ICD-10) Surgical History (Updated 10/12/24 @ 12:46 by Macy Goodrich NP) H/O transurethral resection of prostate ?Z98.890 - Other specified postprocedural states (ICD-10) ?Z90.79 - Acquired absence of other genital organ(s) (ICD-10) History of colonoscopy ?Z98.890 - Other specified postprocedural states (ICD-10) History of myringotomy ?Z98.890 - Other specified postprocedural states (ICD-10) History of carpal tunnel release ?Z98.890 - Other specified postprocedural states (ICD-10) History of carpal tunnel surgery ?Z98.890 - Other specified postprocedural states (ICD-10) History of tonsillectomy ?Z90.89 - Acquired absence of other organs (ICD-10) Family History (Updated 10/06/24 @ 23:50 by Svetlana Kimball RN) Father Family history of myocardial infarction Son Family history of stroke Other Family history of CHF (congestive heart failure) Social History (Updated 11/04/24 @ 02:55 by Mary Ellen Mary) Within the past year, how often did you have a drink containing alcohol: never Score interpretation: A score less than 4 is consistent with normal alcohol consumption. Smoking status: Former smoker Non-prescribed substance use: denies use Previous occupational history: retired Highest level of school completed/degree received: Associate degree: academic program Are you now , , , , never or living with a partner: In a typical week, how many times do you talk on the telephone with family, friends, or neighbors: once per week How often do you get together with friends or relatives: once per week Little interest or pleasure in doing things: not at all Feeling down, depressed, or hopeless: not at all Do you think of yourself as: straight/heterosexual Gender Identity: male Exam Constitutional Vital Signs, click to edit/add: Last Vital Signs Temp 97.7 F 02/18/25 17:37 Pulse 117 H 02/18/25 21:40 Resp 22 H 02/18/25 21:40 BP 104/66 02/18/25 21:30 Pulse Ox 95 02/18/25 21:30 O2 Del Method Room Air 02/18/25 17:37 Course Vital Signs Vital signs: Vital Signs Temperature 97.7 F 02/18/25 17:37 Pulse Rate 131 H 02/18/25 17:37 Respiratory Rate 16 02/18/25 17:37 Blood Pressure 107/87 02/18/25 17:37 Pulse Oximetry 98 02/18/25 17:37 Oxygen Delivery Method Room Air 02/18/25 17:37 Temperature 97.7 F 02/18/25 17:37 Pulse Rate 117 H 02/18/25 21:40 Respiratory Rate 22 H 02/18/25 21:40 Blood Pressure 104/66 02/18/25 21:30 Pulse Oximetry 95 02/18/25 21:30 Oxygen Delivery Method Room Air 02/18/25 17:37 Medical Decision Making MDM Narrative Medical decision making narrative: Patient is a 64-year-old male, history significant for lung cancer on chemoradiation, presenting to the emergency department for evaluation of substernal chest pain beginning this morning. The pain is notable only when he swallows, and only last 10 seconds before self resolving. His oncologist is concerned for radiation-induced of esophagitis. His vitals are significant for tachycardia, otherwise were within normal limits. He is afebrile and hemodynamically stable. He is saturating 98% on room air. He is in no respiratory distress and not complaining of active chest pain until he starts swallowing. CT angiogram of the chest was obtained. IV was established and laboratory studies were obtained. He was given 1 L bolus normal saline. 12 Lead EKG: Ventricularly paced rhythm at a tachycardic rate of 121. Normal axis. No significant ST segment elevations. Unchanged compared to prior EKG from December 2024. Final impression: Ventricularly paced rhythm at a tachycardic rate. No evidence of acute myocardial ischemia. Chest x-ray demonstrated right lower airspace disease. No pneumothorax. Patient was given another liter of normal saline as he was still tachycardic around 115. CTA chest resulted as no evidence for pulmonary embolism. Extensive thickening of the esophagus with confluent adjacent mediastinal soft tissue mass versus lymph node conglomerate. Constellation of findings is concerning for malignancy. Numerous consolidative and nodular opacities within bilateral lungs. Constellation of findings is concerning for malignancy versus multifocal infectious process. Results given to the on-call oncologist from [facility] as well as laboratory studies. Laboratory studies were remarkable for leukopenia, likely related to recent chemotherapy administration. No neutropenia. No electrolyte or metabolic derangements otherwise. No evidence of acute renal injury. No transaminitis or hyperbilirubinemia. Troponin not elevated. She recommended BMX solution and an antacid and to call his oncologist in the morning first thing at 8 AM. He does have a radiation appointment scheduled for 11 AM. GI cocktail ordered for here and plan will be to discharge with close follow up with Oncology. Patient signed out to Dr Jeffrey at 2200. Attending physician note -the patient vomited up his GI cocktail. I met with him to talk about his results and the plan for outpatient follow-up. He was given IV Zofran and IV Protonix before being discharged home with prescription for BMX solution, per the recommendation of the radiation oncologist on-call. The patient does have an appointment scheduled for February 19, 2025 at 11 AM -he we will call the radiation oncology office at 8 AM as instructed to discuss his progress and further care. - DO Jason Lab Data Lab results reviewed: Yes I reviewed the patient's lab results Labs: Lab Results 02/18/25 Range/Units 17:55 WBC 2.6 L (4.0-11.0) 10^3/uL RBC 3.13 L (4.70-6.10) 10^6/uL Hgb 8.2 L (14.0-18.0) g/dL Hct 25.4 L (42.0-54.0) % MCV 81.2 (80.0-94.0) fL MCH 26.2 (25.9-34.0) pg MCHC 32.3 (29.9-35.2) g/dL RDW 15.9 H (11.0-15.0) % Plt Count 85 L (150-450) 10^3/uL Seg Neuts % (Manual) 69.0 (43.0-75.0) Band Neutrophils % 4.0 (0-5) % Lymphocytes % (Manual) 16.0 L (20.5-60.0) % Monocytes % (Manual) 4.0 (1.7-12.0) % Eosinophils % (Manual) 5.0 (0.9-7.0) % Basophils % (Manual) 2.0 (0.2-2.0) % Neutrophils # (Manual) 1.79 (1.4-6.5) 10^3/uL Band Neutrophils # 0.1 (0.0-0.3) 10^3/uL Lymphocytes # (Manual) 0.41 L (1.20-3.80) 10^3/uL Monocytes # (Manual) 0.10 L (0.30-0.80) 10^3/uL Eosinophils # (Manual) 0.13 (0.00-0.70) 10^3/uL Basophils # (Manual) 0.05 (0.00-0.10) 10^3/uL Sodium 139 (136-145) mmol/L Potassium 3.3 L (3.5-5.1) mmol/L Chloride 101 (98-107) mmol/L Carbon Dioxide 23.8 (21.0-32.0) mmol/L Anion Gap 17.5 BUN 18.0 (7.0-18.0) mg/dL Creatinine 0.91 (0.70-1.30) mg/dL Est GFR ( Amer) >60 (>=60 mL/min/1.73m^2) Est GFR (Non-Af Amer) >60 (>=60 mL/min/1.73m^2) BUN/Creatinine Ratio 19.8 Glucose 118 H (74-106) mg/dL Lactate 1.4 (0.4-2.0) mmol/L Calcium 9.0 (8.5-10.1) mg/dL Total Bilirubin 0.5 (0.2-1.0) mg/dL AST 21 (15-37) U/L ALT 17 (16-63) U/L Alkaline Phosphatase 107 (46-116) U/L Troponin I High Sens 16.8 (4.0-76.1) pg/mL Total Protein 8.1 (6.4-8.2) g/dL Albumin 2.8 L (3.4-5.0) g/dL Globulin 5.3 g/dL Albumin/Globulin Ratio 0.[address] scan - chest: Radiologist's impression: No pulmonary embolism. There is thickening of the lining of the esophagus and the associated chest mass, which has previously been identified, But the radiologist to read this Skin: Apparently did not have access to comparison imaging. Discharge Plan Discharge Chief Complaint: Chest Pain Clinical Impression: Radiation gastritis, Chest pain Patient Disposition: Home, Self-Care Time of Disposition Decision: 21:11 Prescriptions / Home Meds: New pantoprazole [Protonix] 40 mg tablet,delayed release (DR/EC) 40 mg PO DAILY 28 Days Qty: 28 0RF No Action acetaminophen [Tylenol] 325 mg tablet 650 mg PO Q6H PRN (Reason: pain) prochlorperazine maleate 10 mg tablet 10 mg PO Q12H PRN (Reason: nausea and vomiting) ondansetron HCl 8 mg tablet 8 mg PO Q12H PRN (Reason: nausea and vomiting) Mucinex DM 30-600 mg tablet extended release 12 hr 1 tab PO DAILY PRN (Reason: cough) Qty: 0 0RF allopurinol 300 mg tablet 300 mg PO BID baclofen 10 mg tablet 10 mg PO TID PRN (Reason: hiccups) chlorpromazine 25 mg tablet 25 mg PO TID PRN (Reason: hiccups) benzonatate 100 mg capsule 200 mg PO BID cyclobenzaprine 10 mg tablet 10 mg PO BEDTIME indomethacin 50 mg capsule 50 mg PO TID PRN (Reason: GOUT) ipratropium bromide 21 mcg (0.03 %) spray,non-aerosol 2 spray INTRANASAL BID metoprolol succinate 50 mg tablet extended release 24 hr 50 mg PO DAILY midodrine 2.5 mg tablet 2.5 mg PO TID mirtazapine 7.5 mg tablet 7.5 mg PO BEDTIME sertraline 50 mg tablet 50 mg PO Q24H loratadine [Allergy Relief (loratadine)] 10 mg tablet 10 mg PO DAILY colchicine 0.6 mg tablet 0.6 mg PO DAILY oxycodone 5 mg tablet 5 mg PO Q4H PRN (Reason: pain) sennosides-docusate sodium [Senna Plus] 8.6-50 mg Tablet 1 tab PO DAILY Print Language: Amharic Instructions: Chest Pain (ED), Gastritis (ED) Additional Instructions: Call Dr Moreno's office at 8am tomorrow to discuss further therapy. [phone]. A handwritten prescription for BMX solution was also given to the patient Referrals: CARLOS COLLINS [Primary Care Provider, [facility]] - 1 week Discharge Date/Time: 02/18/25 22:24
--- NOTE | 2025-02-18 19:30 | PC.NURSE ---
Patient resting in bed with at bedside. He states he is still having chest pain that is sharp in nature. Will last about 15-20 seconds then subside. He says they are coming less frequent than when he arrived, but still several times per hour. When he is not having the pain, he appears to be resting comfortably
[2025-02-18] MEDS: lidocaine HCL 15 ML, MAG HYDROX/ALUMINUM HYD/SIMETH 30 ML, HYOSCYAMINE SULFATE 0.25 MG PO (21:34)
[2025-02-18] MEDS: PANTOPRAZOLE SODIUM 40 MG VIAL IV (22:05)
== END 2025-02-18 22:24 | disposition home or self-care (01) ==
PROVIDERS: Physician Assistant; Emergency Provider Student in an Organized Health Care Education/Training Program; PCP Nurse Practitioner
DX: R07.9 Chest pain, unspecified (principal); K29.70 Gastritis, unspecified, without bleeding; T50.995A Adverse effect of other drugs, medicaments and biological substances, initial encounter; R06.02 Shortness of breath; C34.90 Malignant neoplasm of unspecified part of unspecified bronchus or lung; Z79.60 Long term (current) use of unspecified immunomodulators and immunosuppressants; Z95.0 Presence of cardiac pacemaker; Z87.891 Personal history of nicotine dependence
CPT/HCPCS: 36415; 71045; 71275; 80048; 80053; 80076; 83605; 83690; 84484; 85007; 85027; 93005; 96374; 96375; 99285; J2405; Q9967

== ENCOUNTER 2025-04-02 11:49 | Inpatient (IN) | payer BC, SELFPAY ==
[2025-04-02] VITALS (44 sets, daily range): BP systolic 94–115; BP diastolic 54–70; PULSE 85–116; TEMP 36.4–37.4; O2SAT 88–100; BMI 24.4
--- OUTSIDE RECORDS SUMMARY | 2025-04-02 12:17 | XMS_ITS | CCD ---
Author Organization [facility] Care Team Providers Care Survey Manager Name Role Phone DR ALINA RAGLAND Admitting Unavailable RICARDO, DR ALINA Patterson Primary Care Unavailable RICARDO, DR ALINA Patterson Consulting Unavailable RICARDO, DR ALINA Patterson Attending Unavailable SANDRA, VICTORIA Attending Unavailable RICARDO, DR ALINA Patterson Primary Care Unavailable ANA, DR FREIDA Lagos Consulting Unavailable SANDRA, VICTORIA Admitting Unavailable WEI ASH Consulting Unavailable SANDRA, VICTORIA Consulting Unavailable SANDRA, VICTORIA Attending Unavailable RICARDO, DR ALINA Patterson Primary Care Unavailable SANDRA, VICTORIA Admitting Unavailable SANDRA, VICTORIA Consulting Unavailable ALINA RAGLAND Primary Care Physician Alina Ragland MD Primary Care Provider Tonja De Oliveira APRN Attending Provider [phone] Unavailable Primary Care Provider Unavailabl e Chip Carbajal DO Attending Provider Doug Bowles Primary Care Provider Dennis MCLEAN.Carlos POTTER Primary Care Provider Alina Ragland MD Primary Care Provider [phone] Dennis MCLEAN-Carlos POTTER Primary Care Provider [phone] Delvin MARCOS, Blanquita Chacon Unavailable Ana MEDINA, Rasheed Unavailable Carlos Collins APRN.CNP Primary Care Provider Dominic Ryder PA-C Emergency Provider [phone] Carlos Ledesma Primary Care Provider [phone] Panfilo MEDINA, Norah Admit Provider Panfilo MEDINA, Norah Attending Provider [phone] Shola KEARNEY, Annel Unavailable Unavailable Carlos Collins Primary Care Physician Angelica Lawler DO Emergency Provider Juanis VALDES, Hayes Admit Provider Hayes Olivarez DO Attending Provider [phone] Hayes Olivarez DO Other Provider Jim MARCOS, Alina Other Provider Unavailable Mell Holloway DO Other Provider Andrea MEDINA, Amador Other Provider Eddie Tirado MD Other Provider Mello MEDINA, Librado Other Provider Ming MEDINA, Vick Other Provider Mimi Vásquez APRN Other Provider Vikash MEDINA, Lora Other Provider Lavelle MEDINA, Cielo Kilgore Other Provider Jada Vinson MD Other Provider [facility] Other Provider Shane Altamirano DO Other Provider Shannan Ramirez APRN Other Provider Amarilys Jones DO Other Provider [phone] Neftali Motley DO Other Provider Ari Locke DO Other Provider Cristina Luis APRN Other Provider Justin Abbasi MD Attending Provider [phone] Justin Abbasi MD Other Provider Manfred MEDINA, Ana Lilia Oseguera Other Provider Ari Noe MD Other Provider Colin Rajput DO Other Provider Sam DO Chip P Other Provider Angelique MEDINA, Azalea Other Provider Elissa MEDINA, Cristian Flores Other Provider Gary MEDINA, Nilay Other Provider Yossi MEDINA, Ana Maria Fowler Other Provider [phone] Philippe Epps MD Attending Provider Tonja De Oliveira Attending Unavailable Tonja De Oliveira Admitting Unavailable Alina Ragland Primary Care Unavailable Hayes Olivarez Admitting Unavailable Hayes Olivarez Attending Unavailable Carlos Collins Primary Care Unavailable Shane Altamirano Consulting Unavailable Shannan Ramirez Consulting Unavailable Amarilys Jones Consulting Unavailable Neftali Motley Consulting Unavailable Ari Locke Consulting Unavailable Cristina Luis Consulting Unavailable ElroyJustin marie Consulting Unavaila Ana Lilia Hernandez Consulting Unavailable Ari Noe Consulting Unavailable Colin Rajput Consulting Unavailable Samsa Chip P Consulting Unavailable Azalea Merino Consulting Unavailable Elissa, Cristian Flores Consulting Un available Nilay Vega Consulting Unavailable Ana Maria Sy Consulting UnavailHayes Orellana Consulting Unavailable ZenyeNorah Admitting Unavailable Norah Whittaker Attending Unavailable Carlos Collins Primary Care Unavailable Samsa, Chip P Admitting Unavailable Samsa, Chip P Attending Unavailable Nida MARCOS, Ricardo Patterson Unavailable Unava ilaram Freeman FORENSIC MEDICAL EXAMINER.DEPARTMENT OPERATIONS MANAGER, Sheila Cuevas Unavailable Ana MEDINA, Rasheed Unavailable Carlos Collins Attending Unavailable CATRACHO YOUSSEF Attending Unavailable DennisCarlos mascorro Attending Unavailable DennisCarlos mascorro Attending Unavailable DennisCarlos mascorro Attending Unavailable VICTORIA FLORES Attending Unavailable SAMSA, CHIP P Attending Unavailable SAMSA, CHIP P Referring Unavailable Dennis, Carlos L Admitting Unavailable Dennis, Carlos L Admitting Unavailable Dennis, Carlos L Admitting Unavailable VARUN, CATRACHO A Admitting Unavailable Dennis, Carlos L Attending Unavailable Dennis, Carlos L Attending Unavailable VARUNCATRACHO Attending Unavailable Dennis, Carlos L Attending Unavailable DENNIS, CARLOS L Primary Care Unavailable IDANIA BARNEY Attending Unavailable IDANIA BARNEY U Admitting Unavailable BRIA, FARTUN Consulting Unavailable MITZY DOLL Referring Unavailable DENNIS, CARLOS L Referring Unavailable DENNIS, CARLOS L Primary Care Unavailable DENNIS, CARLOS L Referring Unavailable DENNIS, CARLOS L Primary Care Unavailable BJORNSHOLA Attending Unavailable DENNIS, CARLOS L Referring Unavailable DENNIS, CARLOS L Primary Care Unavailable DENNIS, CARLOS L Referring Unavailable DENNIS, CARLOS L Primary Care Unavailable DENNIS, CARLOS L Referring Unavailable DENNIS, CARLOS L Primary Care Unavailable BJRON, SHOLA Flores Attending Unavailable DENNIS, CARLOS L Primary Care Unavailable DENNIS, CARLOS L Referring Unavailable DENNIS, CARLOS L Primary Care Unavailable DENNIS, CARLOS L Referring Unavailable BJORN, SHOLA Flores Attending Unavailable DENNIS, CARLOS L Referring Unavailable DENNIS, CARLOS L Primary Care Unavailable DENNIS, CARLOS L Referring Unavailable DENNIS, CARLOS L Primary Care Unavailable RAGLAND, ALINA A Referring Unavailable RAGLAND, ALINA A Primary Care Unavailable RAGLAND, ALINA A Referring Unavailable RAGLAND, ALINA A Primary Care Unavailable MARITZA BEST Attending Unavailable RAGLAND, ALINA A Referring Unavailable DENNIS, CARLOS L Primary Care Unavailable DENNIS, CARLOS L Primary Care Unavailable MITZY DOLL Attending Unavailable BRIA, FARTUN Attending Unavailable BRIA, FARTUN Referring Unavailable DENNIS, CARLOS L Primary Care Unavailable DENNIS, CARLOS L Referring Unavailable DENNIS, CARLOS L Primary Care Unavailable TERRA RASHID Attending Unavailable VENNEPUREDDY, RASHEED Referring Unavailable TERRA RASHID Attending Unavailable VENNEPUREDDY, RASHEED Referring Unavailable GAYATHRI SAEED Attending Unavailable VENNEPUREDDY, RASHEED Referring Unavailable GAYATHRI SAEED Attending Unavailable VENNEPUREDDY, RASHEED Referring Unavailable AKBAR MONREAL Attending Unavailable VENNEPUREDDY, RASHEED Referring Unavailable TERRA RASHID Attending Unavailable VENNEPUREDDY, RASHEED Referring Unavailable DENNIS, CARLOS PERRY Primary Care Unavailable VENNEPUREDDY, RASHEDE Referring Unavailable DENNIS, CARLOS BERKLEY Primary Care Unavailable VENNEPUREDDY, RASHEED Referring Unavailable DENNIS, CARLOS PERRY Primary Care Unavailable EZRA LIZAMA Referring Unavailable DENNIS, CARLOS PERRY Primary Care Unavailable VENNEPUREDDY, RASHEED Referring Unavailable DENNIS, CARLOS PERRY Primary Care Unavailable ALDA, EZRA Referring Unavailable VENNEPUREDDY, RASHEED Attending Unavailable DENNIS, [...] Unavailable VENNEPUREDDY, RASHEED Attending Unavailable DENNIS, CARLOS BERKLEY Primary Care Unavailable EZRA LIZAMA Referring Unavailable DENNIS, CARLOS BERKLEY Primary Care Unavailable VENNEPUREDDY, RASHEED Referring Unavailable DENNIS, CARLOS PERRY Primary Care Unavailable TAMMIE BUNN Attending Unavailable DENNIS, CARLOS PERRY Primary Care Unavailable DENNIS, CARLOS PERRY Primary Care Unavailable SHEILA FREEMAN Attending Unavailabl e DENNIS, CARLOS PERRY Primary Care Unavailable STUART FINE Attending Unavailable DENNIS, CARLOS BERKLEY Primary Care Unavailable VENNEPUREDDY, RASHEED Referring Unavailable DENNIS, CARLOS BERKLEY Primary Care Unavailable EZRA LIZAMA Referring Unavailable DENNIS, CARLOS BERKLEY Primary Care Unavailable VENNEPUREDDY, RASHEED Referring Unavailable DENNIS, CARLOS PERRY Primary Care Unavailable VENNEPUREDDY, RASHEED Referring Unavailable DENNIS, CARLOS PERRY Primary Care Unavailable DENNIS, CARLOS PERRY Primary Care Unavailable BEE PABON Attending Unavailable DENNIS, CARLOS BERKLEY Primary Care Unavailable VENNEPUREDDY, RASHEED Referring Unavailable DENNIS, CARLOS BERKLEY Primary Care Unavailable DENNIS, CARLOS BERKLEY Primary Care Unavailable DENNIS, CARLOS BERKLEY Primary Care Unavailable Oswaldo GHOSH Attending Unavailable DENNIS, CARLOS BERKLEY Primary Care Unavailable Oswaldo GHOSH Referring Unavailable EDINELEOswaldo Mckeon Attending Unavailable DENNIS, CARLOS BERKLEY Primary Care Unavailable DENNIS, CARLOS BERKLEY Primary Care Unavailable EZRA ILZAMA Referring Unavailable DENNIS, CARLOS PERRY Primary Care Unavailable VENNEPUREDDY, RASHEED Referring Unavailable DENNIS, CARLOS BERKLEY Primary Care Unavailable DENNIS, CARLOS BERKLEY Primary Care Unavailable EZRA LIZAMA Referring Unavailable DENNIS, CARLOS BERKLEY Primary Care Unavailable EZRA LIZAMA Attending Unavailable [...] DENNIS, CARLOS BERKLEY Primary Care Unavailable DENNIS, CARLOSESSENTIA HEALTHN Primary Care Unavailable VENNEPUREDDY, RASHEED Referring Unavailable [...] Primary Care Unavailable VENNEPUREDDY, RASHEED Referring Unavailable TRISTIN WONG Attending Unavailable DENNIS, CARLOS BERKLEY Primary Care [...] Unavailable DENNIS, CARLOS PERRY Primary Care Unavailable SHEILA FREEMAN Attending Unavailabl e DENNIS, CARLOS PERRY Primary Care Unavailable VENNEPUREDDY, [...] Unavailable VENNEPUREDDY, RASHEED Attending Unavailable DENNIS, CARLOS BERKLEY Primary Care [...] Unavailable DENNIS, CARLOS PERRY Primary Care Unavailable MARYURI LOWERY Referring Unavail able DENNIS, CARLOS PERRY Primary Care Unavailable VENNEPUREDDY, [...] DENNIS, CARLOS PERRY Primary Care Unavailable LOW, SEE-KEVIN Attending Unavailable DENNIS, CARLOS PERRY Primary Care [...] DENNIS, CARLOS PERRY Primary Care Unavailable LOW, SEE-KEVIN Attending Unavailable LOW, SEE-[facility] Admitting Unavailable DENNIS, CARLOS PERRY Primary Care Unavailable EZRA LIZAMA Referring Unavailable DENNIS, CARLOS PERRY Primary Care Unavailable DENNIS, CARLOS PERRY Primary Care Unavailable DENNIS, CARLOS BERKLEY Primary Care Unavailable DENNIS, CARLOS BERKLEY Primary Care Unavailable VENNEPUREDDY, RASHEED Attending Unavailable DENNIS, CARLOS BREKLEY Primary Care Unavailable ALDA, EZRA Referring Unavailable DENNIS, CARLOS BERKLEY Primary Care Unavailable DENNIS, CARLOS BERKLEY Primary Care Unavailable ALDA, EZRA Attending Unavailable DENNIS, CARLOS BERKLEY Primary Care Unavailable ALDA, EZRA Referring Unavailable DENNIS, CARLOS BERKLEY Primary Care Unavailable DENNIS, CARLOS BERKLEY Primary Care Unavailable VENNEPUREDDY, RASHEED Referring Unavailable DENNIS, CARLOS BERKLEY Primary Care Unavailable DENNIS, CARLOS BERKLEY Primary Care Unavailable ALDA, EZRA Referring Unavailable DENNIS, CARLOS BERKLEY Primary Care Unavailable ALIA VILLAREAL, WILLIAN Referring Unava ilable LOW, SEE-KEVIN Attending Unavailable LOW, SEE-KEVIN Admitting Unavailable DENNIS, CARLOS PERRY Primary Care Unavailable ALDA, EZRA Referring Unavailable DENNIS, CARLOS BERKLEY Primary Care Unavailable VENNEPUREDDY, RASHEDE Referring Unavailable VENNEPUREDDY, RASHEED Attending Unavailable DENNIS, CARLOS BERKLEY Primary Care Unavailable VENNEPUREDDY, RASHEED Referring Unavailable DENNIS, CARLOS BERKLEY Primary Care Unavailable ALDA, EZRA Referring Unavailable DENNIS, CARLOS BERKLEY Primary Care Unavailable ALDA, EZRA Referring Unavailable DENNIS, CARLOS PERRY Primary Care Unavailable ALDA, EZRA Referring Unavailable Allergies Allergy Classification Reported Allergen(s) Allergy Type Date of Onset Reaction(s) Facility (2 sources) Sulfamethoxazole / Trimethoprim; Translations: [Bactrim] Drug Allergy 07-22-[address] [facility] Repository (20 sources) Sulfamethoxazole; Translations: [sulfamethoxazole] Drug Allergy 09-01-19 25 Other: See Comments, Unknown, Other (See Comments), GI Disturbance [facility] (20 sources) Sulfamethoxazole / Trimethoprim; Translations: [sulfamethoxazole-t rimethoprim] Drug Allergy 12-18-19 17 Other: See Comments [facility] (2 sources) Pollen 1 Allergy to substance Watery eye (finding), Eye swelling (finding) [facility] Comment on above: Pt only has allergy to [place] Tree Pollen (8 sources) [place] pollen Allergy to substance 08-11-19 Eyes swell shut;sneezing [facility] (8 sources) Trimethoprim Drug Allergy 09-01-19 Unable to urinate [facility] (20 sources) Codeine; Translations: [codeine] Drug Allergy 10-26-19 Other: See Comments, diaphoresis, Sweating (finding) [facility] (20 sources) PACLitaxel; Translations: [PACLITAXEL] Drug Allergy 01-09-20 Other: See Comments, Anaphylaxis [facility] (20 sources) Polysorbate 80; Translations: [POLYSORBATE 80] Drug Allergy 01-09-20 Anaphylaxis [facility] (20 sources) Cremophor El (Polyethoxlated [place] Oil); Translations: [CREMOPHOR EL (POLYETHOXLATED CASTOR OIL)] Drug Allergy 01-09-20 Anaphylaxis [facility] Work Phone: (9 sources) aprepitant; Translations: [APREPITANT] Drug Allergy 01-12-20 Anaphylaxis [facility] (9 sources) Etoposide; Translations: [ETOPOSIDE] Drug Allergy 01-12-20 Anaphylaxis [facility] (1 source) fosaprepitant Drug Allergy 01-18-20 [facility] (1 source) Pollen; Translations: [Pollen] Propensity to adverse reactions (disorder) [facility] Repository (4 sources) Sulfamethoxazole / Trimethoprim; Translations: [SULFAMETHOXAZOLE-T RIMETHOPRIM] Drug Allergy 12-18-19 [facility] Repository Medications Current Medications Medication Drug Class(es) [...] in halation every four hours as needed albuterol (PROVENTIL HFA;VENTOLIN HFA) 90 mcg/actuation inhaler Inhale 2 puffs every 4 (four) hours as needed. 09/13/2024 Active Start: 09-13-2024 End: 11-15-2024 take [...] 11, 2018 1:00am January 02, 2025 5:11pm chlorproMAZINE hydrochloride 25 mg oral tablet (20 sources) Phenothiazine Start: 02-08-2025 End: 02-18-2025 take 1 tablet by mouth every eight hours as needed chlorproMAZINE (THORAZINE) 25 mg tablet Take 1 tablet by mouth three times a day as needed for up to 10 days. 30 tablet 02/08/2025 Active colchicine 0.6 mg oral tablet (20 sources) Start: 01-30-2025 colchicine 0.6 mg tablet 01/30/2025 Active 12 hr dextromethorphan hydrobromide 30 mg / guaiFENesin 600 mg extended release oral tablet (20 sources) Uncompetitive J-iyrmfo-I-asparta te Receptor Antagonist, Sigma-1 Agonist take 2 tablets by mouth every twelve hours in the morning dextromethorphan-gu aiFENesin (MUCINEX DM) 30-600 mg tablet extended release 12 hr Take 2 tablets by mouth in the morning and 2 tablets before bedtime. Active Dextromethorphan -guaiFENesin (MUCINEX FAST-MAX DM MAX) 5-100 mg/5 mL liqd Take by mouth as needed. Active End: 01-02-2025 take 1 tablet by mouth once daily as needed dextromethorphan-guaiFENesin (MUCINEX DM ) 30-600 mg per tablet Take 1 tablet by mouth once daily as needed for cold/allergy symptoms or cough. 01/02/2025 Discontinued (Discontinued by Patient) take [address] [facility] twice daily dextromethorphan-guaiFENesin (MUCINEX DM ) 30-600 mg per tablet Take 2 tablets by mouth two times a day. Active diphenhydrAMINE 12.5 mg/5 mL lidocaine visc 2% MAALOX 200-200-20 mg/5 mL oral liquid 1:1:1 (CPD) (14 sources) Start: 02-19-2025 take 10 mL by mouth every eight hours as needed diphenhydrAMINE 12.5 mg/5 mL lidocaine visc 2% MAALOX 200-200-20 mg/5 mL oral liquid 1:1:1 (CPD) Take 10 mL by mouth every 8 hours as needed. Swish and swallow 360 mL 02/19/2025 12:21 PM EDT 02/19/2025 Active docusate sodium 50 mg / sennosides, halfway 8.6 mg oral tablet (20 sources) Start: 01-15-2025 take 1 tablet by mouth twice daily as needed for constipation Start: 12-29-2024 take 1 tablet by [facility] twice daily Senexon-S oral tablet TAKE 1 TABLET BY MOUTH TWICE A DAY Start Date: 12/29/24 Status: Ordered Repeat number: 1 take [address] [facility] every twelve hours as needed sennosides-docusate sodium [...] Take 40 mg by mouth. 12/29/2024 Active 72 hr fentaNYL 0.025 mg/hr transdermal system (11 sources) Opioid Agonist Start: 02-20-2025 End: 03-22-2025 fentaNYL (DURAGESIC) 25 mcg/hr Indications: Neoplasm related pain Apply 1 patch as directed every 72 hours for 30 days. Do not cut patch. 10 patch 02/20/2025 11:34 AM EDT 02/20/2025 03/22/2025 Active 12 hr guaiFENesin 600 mg extended [...] sources) Anticholinergic Start: 01-23-2025 End: 03-16-2025 Ipratropium [place] (ATROVENT) 21 mcg (0.03 %) nasal spray [...] K/lyc op (MEN'S 50 PLUS MULTIVITAMIN ORAL) (14 sources) multivit-min/fol ic/vit K/lycop (MEN'S 50 PLUS [...] TAB PO Daily May 17, 2019 1:00am oxyCODONE hydrochloride 5 mg oral tablet (20 sources) Opioid Agonist Start: 01-23-2025 End: 03-22-2025 take 1 tablet by mouth every four hours as needed for pain oxyCODONE IR (ROXICODONE) 5 mg immediate release tablet Indications: Malignant neoplasm of lower lobe of right lung (HCC) , Neoplasm related pain , SOB (shortness of breath) Take 1 tablet by mouth every 4 hours as needed for pain for up to 30 days. 180 tablet 02/20/2025 03/22/2025 Active Start: 01-18-2025 End: 02-01-2025 take 1 tablet by mouth every six hours as needed for pain oxyCODONE IR (ROXICODONE) 5 mg immediate release tablet Indications: Malignant neoplasm of lower lobe of right lung (HCC) Take 1 tablet by mouth every 6 hours as needed for pain for up to 14 days. 56 tablet 01/18/2025 01/23/2025 Discontinued pantoprazole 40 mg delayed release oral tablet (11 sources) Proton Pump Inhibitor Start: 02-19-[address] (PROTONIX) 40 mg tablet 02/19/2025 Active PEPSIN/BLESSING/OXBILE/PANCR EAT/BET (SOLGOV-IAT-KR PUGM-AJZ-APR-PAP ORAL) (2 sources) PEPSIN/BLESSING/OXBIL E/PANC REAT/BET (ZFVTHZ-NTK-WE BCFY-DQC-PVJ-PAP ORAL) Take by mouth. Active predniSONE 20 mg oral tablet (20 sources) Start: 12-05-2024 predniSONE (DE LTASONE) 20 mg tablet Take 1 tablet (20 [...] mouth every 6 (six) hours as needed. 11/27/2024 Active Reishi Mushroom Extract 188 mg capsule (2 sources) Start: 01-15-2025 take 1 capsule by mouth once daily Start: 01-15-20[address] [facility] once daily Reishi Mushroom Extract 188 mg capsule Active 188 MG PO Daily January 15, 2025 12:00am Complies with drug therapy sertraline 50 mg oral tablet (20 sources) Serotonin Reuptake Inhibitor Start: 01-18-2025 take 1 tablet by mouth once daily in the morning sucralfate 1000 mg oral tablet (11 sources) Aluminum Complex Start: 02-20-2025 End: 03-22-2025 take 1 tablet by mouth four times daily sucralfate (CARAFATE) 1 gram tablet Indications: Esophagitis Take 1 tablet by mouth four times daily. 120 tablet 02/20/2025 11:34 AM EDT 02/20/2025 03/22/2025 Active varenicline 1 mg oral tablet (2 sources) [...] 14, 2017 12:00am August 31, 2024 9:50am baclofen 10 mg oral tablet (20 sources) gamma-Aminobutyric Acid-ergic Agonist Start: 02-06-2025 End: 02-21-2025 take 1 tablet by mouth every eight hours as needed baclofen 10 mg tablet Take 1 tablet by mouth three times a day as needed for up to 10 days. 30 tablet 02/06/2025 02/21/2025 benzonatate 100 mg oral capsule (20 sources) Non-narcotic Antitussive Start: 01-23-2025 End: 02-22-2025 take 2 capsules by mouth three times daily as needed benzonatate (TESSALON PERLE) 100 mg capsule Indications: Chronic cough Take 2 capsules by mouth three times a day as needed. 180 capsule 3 01/23/2025 02/22/2025 Start: 01-02-2025 take 2 capsules by m [...] 31, 2024 12:00am January 02, 2025 5:12pm cefdinir 300 mg oral capsule (20 sources) [...] at 1200 Start: 12-05-2024 End: 01-23-2025 diphenhydrAMINE (BenadryL) 2 5 mg capsule Take 1 capsule (25 mg [...] 02-08-2025 94 mg (50 mg/m2 1.88 m2 Lou [...] 1 dose, On Wed02/07/25 at 1300, EXP: 92311 02/09/25 Hazardous Chemotherapy Drug: Use appropriate PPE. [...] over 1 Hours, ONCE, 1 dose, On Tu01/09/25 at 1200, EXP: 01/10/2025 1205 RT Hazardous [...] Fluticasone Propionate (Flonase Allergy Relief) 50 mcg/actuation [place],Suspension Discontinued 1 SPRAYS INTRANASAL Daily as needed [...] (Therapy completed) NON FORMULARY Me d Name: [facility] Immunity support bid Active nystatin 707738 unt/ml oral suspension (20 sources) Polyene Antifungal Start: 01-18-2025 End: 02-05-2025 take 5 mL by mouth four times daily nystatin (MYCOSTATIN) 100,000 unit/mL suspension Take 5 mL by mouth four times daily for 14 days. Swish and swallow. 280 mL 01/18/2025 02/05/2025 2 ml ondansetron 2 mg/ml injection (20 [...] mouth every 8 (eight) hours as needed. 11/27/2024 Active oseltamivir 75 mg oral capsule (6 sources) Neuraminidase Inhibitor Start: 09-08-2024 End: 01-02-2025 take 1 capsule by mouth twice daily Oseltamivir (Tamiflu) 75 mg capsule Discontinued 75 MG PO Twice daily 10 September 08, 2024 12:00am January 02, 2025 [...] with NS prior to and following administration. 0.6 ml pegfilgrastim-jmdb 10 mg/ml prefilled syringe (1 source) Leukocyte Growth Factor Start: 02-22-2025 End: 02-22-2025 6 mg, SUBCUTANEOUS, ONCE, 1 dose, On [place]ona 02/22/25 at 1130, Refrigerate - Protect From Light - Do Not Shake - Allow prefilled syringe to reach room temperature for at least 30 minutes prior to injection. 100 ml potassium chloride 0.2 meq/ml injection (7 sources) Start: 02-05-2025 End: 02-05-2025 20 mEq, INTRAVENOUS, at 100 mL/hr, Administer over 1 Hours, ONCE, 1 dose, On 02/05/25 at 1030, NONCYTOTOXIC VESICANT If ordered with infusion rate range, start with maximum infusion rate and decrease rate if infusion is not tolerated Start: 01-08-2025 End: 01-09-2025 20 mEq, INTRAVENOUS, at 100 mL/hr, Administer over 1 Hours, ONCE, 1 dose, On Tu01/09/25 at 1200, NONCYTOTOXIC VESICANT If ordered with infusion rate range, start with maximum infusion rate and decrease rate if infusion is not tolerated Start: 12-29-2024 Potassium Chlo ride (Zxf-Iqwp-Pyq M20) 20 mEq oral tablet, extended release [...] 1000 ml sodium chloride 9 mg/ml injection (16 sources) Start: 02-21-2025 End: 02-21-2025 NaCl 0.9% 1,000 mL iv bolus Start: 02-20-2025 End: 02-21-2025 1,000 mL, INTRAVENOUS, at 99 9 mL/hr, Administer over 1 Hours, ONCE, 1 dose, On Wed02/21/25 at 1000 Start: 02-13-2025 End: 02-13-2025 1,000 mL, INTRAVENOUS, at 99 9 mL/hr, [...] (i.e. with oxaliplatin). 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 Conduction disorders (20 sources) Atrioventricular block; Translations: [Unspecified atrioventricular block] Onset: 5 11-09-2024 Chronic E Codes: Adverse effects of medical drugs (7 sources) Adverse reaction to drug; Translations: [Adverse effect of antineoplastic and immunosuppressive drugs, initial encounter] Onset: 5 03-07-2025 Episodic Esophageal disorders (2 sources) Esophagitis; Translations: [Esophagitis] Onset: 5 02-20-2025 Episodic Fever of unknown origin (6 sources) Fever; Translations: [Fever, unspecified] Onset: 5 12-05-2024 Episodic Fluid and electrolyte disorders (20 sources) Dehydration; Translations: [Dehydration] Onset: 5 01-24-2025 Episodic Genitourinary symptoms and ill-defined conditions (5 sources) Microscopic hematuria; Translations: [Other microscopic hematuria] Onset: 4 Episodic Gout and other crystal arthropathies (15 sources) Gout; Translations: [Gout, unspecified] Onset: 5 01-18-2019 Chronic Hyperplasia of prostate (20 sources) Benign prostatic hyperplasia with lower urinary tract symptoms; Translations: [Benign prostatic hypertrophy with outflow obstruction] Onset: 3 Chronic Maintenance chemotherapy; radiotherapy (1 source) Patient encounter status; Translations: [Encounter for antineoplastic chemotherapy] 02-14-2025 Chronic Malaise and fatigue (15 sources) Asthenia; Translations: [Fatigue due to chemotherapy] 12-27-2024 Episodic Nutritional deficiencies (3 sources) Deficiency of macronutrients; Translations: [Unspecified protein-calorie malnutrition] Onset: 5 02-14-2025 Chronic Osteoarthritis (15 sources) Arthritis; Translations: [Unspecified osteoarthritis, unspecified site] Onset: 5 01-18-2019 Chronic Other aftercare (1 source) Post-discharge follow-up 11-08-2024 Episodic Other aftercare (2 sources) Under care of palliative care physician; Translations: [Encounter for palliative care] 01-23-2025 Episodic Other aftercare (1 source) Encounter for palliative care; Translations: [Palliative care by specialist] Onset: 5 Episodic Other connective tissue disease (4 sources) Muscle finding; Translations: [Myalgia, unspecified site] 12-26-2024 Episodic Other diseases of kidney and ureters (1 source) Acquired renal cyst without neoplastic change; Translations: [Cyst of kidney, acquired] Onset: 4 Episodic Other diseases of kidney and ureters (2 sources) Cyst of kidney 06-23-2022 Episodic Other gastrointestinal disorders (2 sources) Therapeutic opioid induced constipation; Translations: [Drug induced constipation] 01-23-2025 Episodic Other gastrointestinal disorders (1 source) Dysphagia; Translations: [Dysphagia, unspecified] 02-20-2025 Episodic Other gastrointestinal disorders (1 source) Dysphagia, unspecified; Translations: [Dysphagia, unspecified type] Onset: Episodic Other gastrointestinal disorders (1 source) Drug induced constipation; Translations: [Constipation due to opioid therapy] Onset: 5 Episodic Other injuries and conditions due to [...] pneumonia] Onset: Episodic Other lower respiratory disease (3 sources) Chronic cough; Translations: [Chronic cough] Onset: 5 01-23-2025 Episodic Other lower respiratory disease (2 sources) Dyspnea; Translations: [Shortness of breath] 01-23-2025 Episodic Other lower respiratory disease (1 source) Shortness of breath; Translations: [SOB (shortness of breath)] Onset: 5 Episodic Other nervous system disorders (20 sources) Lesion of ulnar nerve; Translations: [Lesion of ulnar nerve, unspecified upper limb] Onset: 6 10-10-2024 Chronic Other nervous system disorders (20 sources) Carpal tunnel syndrome; Translations: [Carpal tunnel syndrome, unspecified upper limb] Onset: 6 10-10-2024 Chronic Other nervous system disorders (4 sources) Pain due to neoplastic disease; Translations: [Neoplasm related pain (acute) (chronic)] 01-17-2025 Chronic Other nervous system disorders (2 sources) Neoplasm related pain (acute) (chronic); Translations: [Neoplasm related pain (acute) (chronic)] Onset: 5 Chronic Other nutritional; endocrine; and metabolic disorders (1 source) Body mass index 25-29 - overweight 12-29-2024 Episodic Other nutritional; endocrine; and metabolic disorders (1 source) Overweight in adulthood with body mass index of 25 or more but less than 30 12-29-2024 Episodic Other nutritional; endocrine; and metabolic disorders (2 sources) Loss of appetite; Translations: [Anorexia] 01-23-2025 Episodic Other nutritional; endocrine; and metabolic disorders (1 source) Anorexia; Translations: [Anorexia] Onset: Episodic Other screening for suspected conditions (not mental disorders or infectious disease) (1 source) Encounter for screening for malignant neoplasm of prostate; Translations: [Screening for malignant neoplasm done] Onset: 4 Episodic Other upper respiratory disease (1 source) Chronic rhinitis; Translations: [Chronic rhinitis] Onset: Chronic Other upper respiratory disease (1 source) Obstruction of bronchus; Translations: [Other diseases of bronchus, not elsewhere classified] 11-15-2024 Episodic Other upper respiratory disease (3 sources) Nasal discharge; Translations: [Other specified disorders of nose and nasal sinuses] 01-23-2025 Episodic Other upper respiratory disease (1 source) Other specified disorders of nose and nasal sinuses; Translations: [Rhinorrhea] Onset: Episodic Pneumonia (except that caused by [...] abuse codes (2 sources) Ex-smoker 04-18-2019 Episodic Thyroid disorders (1 source) Hypothyroidism 10-13-2024 Chronic Unclassified (2 sources) Patient encounter status 06-29-2023 Unclassified (3 sources) Post hospital appointment. Please call to reschedule if needed. This appointment is scheduled with another provider in her office, Catracho Youssef., Nurse Practitioner. 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 Unclassified (2 sources) Device Check Onset: 5 Unclassified (1 source) AV block Onset: 5 Unclassified (1 source) Slow Heart Rate Onset: 5 Unclassified (1 source) low heart rate Onset: 5 Unclassified (1 source) New Patient Onset: 5 Unclassified (1 source) Radiotherapy On-treatment Visit Onset: Past or Other Problems Problem Classification Problem Date Documented Da te Episodic/Chronic Cardiac dysrhythmias (1 source) Bradycardia, unspecified; Translations: [Bradycardia, unspecified] Onset: 11-08-2024 Episodic Mood disorders (15 sources) Mood disorders Onset: 12-17-2016 Resolved: 11-09-2024 12-17-2016 Other connective tissue disease (20 sources) Calcific tendinitis of shoulder; Translations: [Calcific tendinitis of unspecified shoulder] Onset: 03-25-2006 10-10-2024 Episodic Other connective tissue disease (20 sources) Soft tissue lesion of shoulder region; Translations: [Bursopathy, unspecified] Onset: 03-25-2006 10-10-2024 Episodic Other connective tissue disease (1 source) Myalgia, unspecified site; Translations: [Muscle soreness] Onset: 12-26-2024 Episodic Other diseases of kidney and ureters (1 source) Cyst of kidney, acquired; Translations: [CYST OF KIDNEY ACQUIRED] Onset: 07-06-2022 Episodic Other upper respiratory disease (2 sources) Other diseases of bronchus, not elsewhere classified; Translations: [Bronchiolar disease] Onset: 11-15-2024 Episodic Syncope (20 sources) Syncope; Translations: [Syncope and collapse] Onset: 11-08-2024 11-08-2024 Episodic Results Test Name Value Interpretation Reference Range Facility CNPNon 03-29-2025 CNPN Normal [facility] CBC W Auto Differential pane l (Bld)on 03-28-2025 Basophils (Bld) [#/Vol] 0.06 10*3/uL Normal <0.11 [facility] Comment on above: Order Comment: Speci men Type: BLOOD SPECIMENOrdering Facility: [facility] Address: [address] [place] [address] Performed By: #### 5 7021-8 ####[facility] LABCLIA [id number] [place] [address] Basophils/100 WBC (Bld) 0.5 % Normal [facility] Comment on above: Order Comment: Speci men Type: BLOOD SPECIMENOrdering Facility: [facility] Address: [address] [place] [address] Performed By: #### 5 7021-8 ####[facility] LABCLIA [id number] [place] [address] Differential cell count method Nom (Bld) Auto Normal [facility] Comment on above: Order Comment: Speci men Type: BLOOD SPECIMENOrdering Facility: [facility] Address: [address] [place] [address] Performed By: #### 5 7021-8 ####[facility] LABCLIA [id number] [place] [address] Eosinophils (Bld) [#/Vol] 0.33 10*3/uL Normal <0.46 [facility] Comment on above: Order Comment: Speci men Type: BLOOD SPECIMENOrdering Facility: [facility] Address: [address] [place] [address] Performed By: #### 5 7021-8 ####[facility] LABCLIA [id number] [place] [address] Eosinophils/100 WBC (Bld) 2.8 % Normal [facility] Comment on above: Order Comment: Speci men Type: BLOOD SPECIMENOrdering Facility: [facility] Address: [address] [place] [address] Performed By: #### 5 7021-8 ####[facility] LABCLIA [id number] [place] [address] Erythrocyte distribution width (RBC) [Ratio] 21.1 % High 11.5-15.0 [facility] Comment on above: Order Comment: Speci men Type: BLOOD SPECIMENOrdering Facility: [facility] Address: [address] [place] [address] Performed By: #### 5 7021-8 ####[facility] LABIA [id number] [place] [address] Hematocrit (Bld) [Volume fraction] 24.6 % Low 39.0-51.0 [facility] Comment on above: Order Comment: Speci men Type: BLOOD SPECIMENOrdering Facility: [facility] Address: [address] [place] [address] Performed By: #### 5 7021-8 ####[facility] LABIA [id number] [place] [address] Hemoglobin (Bld) [Mass/Vol] 7.2 g/dL Low 13.0-17.0 [facility] Comment on above: Order Comment: Speci men Type: BLOOD SPECIMENOrdering Facility: [facility] Address: [address] [place] [address] Performed By: #### 5 7021-8 ####[facility] LABIA [id number] [place] [address] Immature granulocytes (Bld) [#/Vol] 0.06 10*3/uL Normal <0.10 [facility] Comment on above: Order Comment: Speci men Type: BLOOD SPECIMENOrdering Facility: [facility] Address: [address] [place], [place] [address] Performed By: #### 5 7021-8 ####[facility] LABIA [id number] [place] [address] Immature granulocytes/100 WBC (Bld) 0.5 % Normal [facility] Comment on above: Order Comment: Speci men Type: BLOOD SPECIMENOrdering Facility: [facility] Address: [address] [place] [address] Performed By: #### 5 7021-8 ####[facility] LABCLIA [id number] [place] [address] Lymphocytes (Bld) [#/Vol] 0.64 10*3/uL Low 1.00-4.00 [facility] Comment on above: Order Comment: Speci men Type: BLOOD SPECIMENOrdering Facility: [facility] Address: [address] [place] [address] Performed By: #### 5 7021-8 ####[facility] LABCLIA [id number] [place] [address] Lymphocytes/100 WBC (Bld) 5.5 % Normal [facility] Comment on above: Order Comment: Speci men Type: BLOOD SPECIMENOrdering Facility: [facility] Address: [address] [place] [address] Performed By: #### 5 7021-8 ####[facility] LABCLIA [id number] [place] [address] MCH (RBC) [Entitic mass] 26.3 pg Normal 26.0-34.0 [facility] Comment on above: Order Comment: Speci men Type: BLOOD SPECIMENOrdering Facility: [facility] Address: [address] [place] [address] Performed By: #### 5 7021-8 ####[facility] LABCLIA [id number] [place] [address] MCHC (RBC) [Mass/Vol] 29.3 g/dL Low 30.5-36.0 [facility] Comment on above: Order Comment: Speci men Type: BLOOD SPECIMENOrdering Facility: [facility] Address: [address] [place] [address] Performed By: #### 5 7021-8 ####[facility] LABCLIA [id number] [place] [address] MCV (RBC) [Entitic vol] 89.8 fL Normal 80.0-100.0 [facility] Comment on above: Order Comment: Speci men Type: BLOOD SPECIMENOrdering Facility: [facility] Address: [address] [place] [address] Performed By: #### 5 7021-8 ####[facility] LABCLIA [id number] [place] [address] Monocytes (Bld) [#/Vol] 0.86 10*3/uL Normal <0.87 [facility] Comment on above: Order Comment: Speci men Type: BLOOD SPECIMENOrdering Facility: [facility] Address: [address] [place] [address] Performed By: #### 5 7021-8 ####[facility] LABCLIA [id number] [place] [address] Monocytes/100 WBC (Bld) 7.4 % Normal [facility] Comment on above: Order Comment: Speci men Type: BLOOD SPECIMENOrdering Facility: [facility] Address: [address] [place] [address] Performed By: #### 5 7021-8 ####[facility] LABCLIA [id number] [place] [address] Neutrophils (Bld) [#/Vol] 9.63 10*3/uL High 1.45-7.50 [facility] Comment on above: Order Comment: Speci men Type: BLOOD SPECIMENOrdering Facility: [facility] Address: [address] [place] [address] Performed By: #### 5 7021-8 ####[facility] LABCLIA [id number] [place] [address] Neutrophils/100 WBC (Bld) 83.3 % Normal [facility] Comment on above: Order Comment: Speci men Type: BLOOD SPECIMENOrdering Facility: [facility] Address: [address] [place] [address] Performed By: #### 5 7021-8 ####[facility] LABCLIA [id number] [place] [address] Nucleated RBC (Bld) [#/Vol] 10*3/uL Normal <0.01 [facility] Comment on above: Order Comment: Speci men Type: BLOOD SPECIMENOrdering Facility: [facility] Address: [address] [place] [address] Performed By: #### 5 7021-8 ####[facility] LABCLIA [id number] [place] [address] Nucleated RBC/100 WBC (Bld) [Ratio] 0.0 /100 WBC Normal [facility] Comment on above: Order Comment: Speci men Type: BLOOD SPECIMENOrdering Facility: [facility] Address: [address] [place] [address] Performed By: #### 5 7021-8 ####[facility] LABCLIA [id number] [place] [address] Platelet mean volume (Bld) [Entitic vol] 9.5 fL Normal 9.0-12.7 [facility] Comment on above: Order Comment: Speci men Type: BLOOD SPECIMENOrdering Facility: [facility] Address: [address] [place] [address] Performed By: #### 5 7021-8 ####[facility] LABCLIA [id number] [place] [address] Platelets (Bld) [#/Vol] 358 10*3/uL Normal 150-400 [facility] Comment on above: Order Comment: Speci men Type: BLOOD SPECIMENOrdering Facility: [facility] Address: [address] [place] [address] Performed By: #### 5 7021-8 ####[facility] LABCLIA [id number] [place] [address] RBC (Bld) [#/Vol] 2.74 10*6/uL Low 4.20-6.00 [facility] Comment on above: Order Comment: Speci men Type: BLOOD SPECIMENOrdering Facility: [facility] Address: [address] [place] [address] Performed By: #### 5 7021-8 ####[facility] LABCLIA [id number] [place] [address] WBC (Bld) [#/Vol] 11.58 10*3/uL High 3.70-11.00 [facility] Comment on above: Order Comment: Speci men Type: BLOOD SPECIMENOrdering Facility: [facility] Address: [address] [place] [address] Performed By: #### 5 7021-8 ####[facility] LABCLIA [id number] [place] [address] CNOVSPon 03-28-2025 CNOVSP Normal [facility] CNPNon 03-28-2025 CNPN Normal [facility] Comprehensive metabolic 2000 panelon 03-28-2025 Albumin [Mass/Vol] 3.7 g/dL Low 3.9-4.9 [facility] Comment on above: Order Comment: Speci men Type: BLOOD SPECIMENOrdering Facility: [facility] Address: [address] [place] [address] Performed By: #### 1 9123-9, 61766-7 ####[facility] LABCLIA [id number] [place] [address] ALP [Catalytic activity/Vol] 85 U/L Normal 38-113 [facility] Comment on above: Order Comment: Speci men Type: BLOOD SPECIMENOrdering Facility: [facility] Address: [address] [place] [address] Performed By: #### 1 9123-9, 76323-9 ####[facility] LABCLIA [id number] [place] [address] ALT [Catalytic activity/Vol] 6 U/L Low 10-54 [facility] Comment on above: Order Comment: Speci men Type: BLOOD SPECIMENOrdering Facility: [facility] Address: [address] [place] [address] Performed By: #### 1 9123-9, 86765-1 ####[facility] LABCLIA [id number] [place] [address] Anion gap [Moles/Vol] 14 mmol/L Normal 8-15 [facility] Comment on above: Order Comment: Speci men Type: BLOOD SPECIMENOrdering Facility: [facility] Address: [address] [place] [address] Performed By: #### 1 9123-9, 05707-1 ####[facility] LABCLIA [id number] [place] [address] AST [Catalytic activity/Vol] 16 U/L Normal 14-40 [facility] Comment on above: Order Comment: Speci men Type: BLOOD SPECIMENOrdering Facility: [facility] Address: [address] [place] [address] Performed By: #### 1 9123-9, 63495-1 ####[facility] LABCLIA [id number] [place] [address] Bilirubin [Mass/Vol] 0.3 mg/dL Normal 0.2-1.3 [facility] Comment on above: Order Comment: Speci men Type: BLOOD SPECIMENOrdering Facility: [facility] Address: [address] [place] [address] Performed By: #### 1 23-9, 11363-9 ####[facility] LABCLIA [id number] [place] [address] Calcium [Mass/Vol] 9.7 mg/dL Normal 8.5-10.2 [facility] Comment on above: Order Comment: Speci men Type: BLOOD SPECIMENOrdering Facility: [facility] Address: [address] [place] [address] Performed By: #### 1 239, 34634-6 ####[facility] LABCLIA [id number] [place] [address] Chloride [Moles/Vol] 103 mmol/L Normal 98-107 [facility] Comment on above: Order Comment: Speci men Type: BLOOD SPECIMENOrdering Facility: [facility] Address: [address] [place] [address] Performed By: #### 1 9123-9, 94902-7 ####[facility] LABCLIA [id number] [place] [address] CO2 [Moles/Vol] 23 mmol/L Normal 22-30 [facility] Comment on above: Order Comment: Speci men Type: BLOOD SPECIMENOrdering Facility: [facility] Address: [address] [place] [address] Performed By: #### 1 9123-9, 22290-5 ####[facility] LABCLIA [id number] [place] [address] Creatinine [Mass/Vol] 0.67 mg/dL Low 0.73-1.22 [facility] Comment on above: Order Comment: Speci men Type: BLOOD SPECIMENOrdering Facility: [facility] Address: [address] [place] [address] Performed By: #### 1 9123-9, 29066-2 ####[facility] LABIA [id number] [place] [address] eGFRcr SerPlBld CKD-EPI 2020 105 mL/min/1.73m??? Normal >=60 [facility] Comment on above: Order Comment: Speci men Type: BLOOD SPECIMENOrdering Facility: [facility] Address: [address] [place] [address] Result Comment: Carly mated Glomerular Filtration Rate [...] actual GFR. Performed By: #### 1 9123-9, 19746-4 ####[facility] LABCLIA [id number] [place] [address] Glucose [Mass/Vol] 119 mg/dL High 74-99 [facility] Comment on above: Order Comment: Speci men Type: BLOOD SPECIMENOrdering Facility: [facility] Address: [address] [place] [address] Result Comment: The [place] [employer] (ADA) provides guidance for cutoff [...] Standards of Medical Care in Diabetes 2016, [place] [employer]. Diabetes Care. 2016.39(Suppl 1). Performed By: #### 1 9123-9, 00020-5 ####[facility] LABCLIA [id number] [place] [address] Potassium [Moles/Vol] 3.7 mmol/L Normal 3.7-5.1 [facility] Comment on above: Order Comment: Speci men Type: BLOOD SPECIMENOrdering Facility: [facility] Address: [address] [place] [address] Performed By: #### 1 9123-9, 65636-1 ####[facility] LABIA [id number] [place] [address] Protein [Mass/Vol] 7.2 g/dL Normal 6.3-8.0 [facility] Comment on above: Order Comment: Speci men Type: BLOOD SPECIMENOrdering Facility: [facility] Address: [address] [place] [address] Performed By: #### 1 9123-9, 23717-1 ####[facility] LABCLIA [id number] [place] [address] Sodium [Moles/Vol] 140 mmol/L Normal 136-144 [facility] Comment on above: Order Comment: Speci men Type: BLOOD SPECIMENOrdering Facility: [facility] Address: [address] [place], [place] [address] Performed By: #### 1 9123-9, 01150-1 ####[facility] LABCLIA [id number] [place] [address] Urea nitrogen [Mass/Vol] 18 mg/dL Normal 9-24 [facility] Comment on above: Order Comment: Speci men Type: BLOOD SPECIMENOrdering Facility: [facility] Address: [address] [place], [place] [address] Performed By: #### 1 9123-9, 70068-4 ####[facility] LABCLIA [id number] [place] [address] Magnesium SerPl-ncon 03-28 Magnesium [Mass/Vol] 1.9 mg/dL Normal 1.7-2.3 [facility] Comment on above: Order Comment: Speci men Type: BLOOD SPECIMENOrdering Facility: [facility] Address: [address] [place], [place] [address] Performed By: #### 1 9123-9, 76478-4 ####[facility] LABCLIA [id number] [place] [address] NM PET/CT SKULL-THIGH SUBQon 03-23-2025 NM PET/CT SKULL-THIGH SUBQ Normal [facility] CNCNPATEDon 03-20-2025 CNCNPATED Normal [facility] CNOVon 03-20-2025 CNOV Normal [facility] CNPNon 03-20-2025 CNPN Normal [facility] CNPNon 03-16-2025 CNPN Normal [facility] CNPNon 03-12-2025 CNPN Normal [facility] CNPNon 03-06-2025 CNPN Normal [facility] CNPNon 03-01-2025 CNPN Normal [facility] CNPNon 02-27-2025 CNPN Normal [facility] CNCNPATEDon 02-23-2025 CNCNPATED Normal [facility] CNNURSEon 02-22-2025 CNNURSE Normal [facility] CBC W Auto Differential pane l (Bld)on 02-21-2025 Anisocytosis Ql (Bld) Present Normal [facility] Comment on above: Order Comment: Speci men Type: BLOOD SPECIMENOrdering Facility: [facility] Address: [address] [place] [address] Performed By: #### 5 7021-8 ####[facility] LABCLIA [id number] [address] LABCLIA [id number] [place] [address] [place] Basophils (Bld) [#/Vol] 10*3/uL Normal <0.11 [facility] Comment on above: Order Comment: Speci men Type: BLOOD SPECIMENOrdering Facility: [facility] Address: [address] [place] [address] Performed By: #### 5 7021-8 ####[facility] LABCLIA [id number] [address] LABCLIA [id number] [place] [address] [place] Basophils/100 WBC (Bld) 0.0 % Normal [facility] Comment on above: Order Comment: Speci men Type: BLOOD SPECIMENOrdering Facility: [facility] Address: [address] [place] [address] Performed By: #### 5 7021-8 ####[facility] LABCLIA [id number] [address] LABCLIA [id number] [place] [address] [place] Dacrocytes LM Ql (Bld) Few Normal [facility] Comment on above: Order Comment: Speci men Type: BLOOD SPECIMENOrdering Facility: [facility] Address: [address] [place] [address] Performed By: #### 5 7021-8 ####[facility] LABCLIA [id number] [address] LABCLIA [id number] [place] [address] [place] Differential cell count method Nom (Bld) Auto Normal [facility] Comment on above: Order Comment: Speci men Type: BLOOD SPECIMENOrdering Facility: [facility] Address: [address] [place] [address] Performed By: #### 5 7021-8 ####[facility] LABCLIA [id number] [address] LABCLIA [id number] [place] [address] [place] Eosinophils (Bld) [#/Vol] 0.07 10*3/uL Normal <0.46 [facility] Comment on above: Order Comment: Speci men Type: BLOOD SPECIMENOrdering Facility: [facility] Address: [address] [place] [address] Performed By: #### 5 7021-8 ####[facility] LABCLIA [id number] [address] LABCLIA [id number] [place] [address] [place] Eosinophils/100 WBC (Bld) 8.9 % Normal [facility] Comment on above: Order Comment: Speci men Type: BLOOD SPECIMENOrdering Facility: [facility] Address: [address] [place] [address] Performed By: #### 5 7021-8 ####[facility] LABCLIA [id number] [place] [id number] LABCLIA [id number] [place] [address] [place] Erythrocyte distribution width (RBC) [Ratio] 17.1 % High 11.5-15.0 [facility] Comment on above: Order Comment: Speci men Type: BLOOD SPECIMENOrdering Facility: [facility] Address: [address] [place] [address] Performed By: #### 5 7021-8 ####[facility] LABCLIA [id number] [address] LABCLIA [id number] [place] [address] [place] Hematocrit (Bld) [Volume fraction] 24.9 % Low 39.0-51.0 [facility] Comment on above: Order Comment: Speci men Type: BLOOD SPECIMENOrdering Facility: [facility] Address: [address] [place] [address] Performed By: #### 5 7021-8 ####[facility] LABCLIA [id number] [place] [id number] LABCLIA [id number] [place] [address] [place] Hemoglobin (Bld) [Mass/Vol] 7.8 g/dL Low 13.0-17.0 [facility] Comment on above: Order Comment: Speci men Type: BLOOD SPECIMENOrdering Facility: [facility] Address: [address] [place] [address] Performed By: #### 5 7021-8 ####[facility] LABCLIA [id number] [address] LABCLIA [id number] [place] [id number] [place] Immature granulocytes (Bld) [#/Vol] 10*3/uL Normal <0.10 [facility] Comment on above: Order Comment: Speci men Type: BLOOD SPECIMENOrdering Facility: [facility] Address: [address] [place] [address] Performed By: #### 5 7021-8 ####[facility] LABCLIA [id number] [address] LABCLIA [id number] [place] [address] [place] Immature granulocytes/100 WBC (Bld) 0.0 % Normal [facility] Comment on above: Order Comment: Speci men Type: BLOOD SPECIMENOrdering Facility: [facility] Address: [address] [place] [address] Performed By: #### 5 7021-8 ####[facility] LABCLIA [id number] [address] LABCLIA [id number] [place] [address] [place] Lymphocytes (Bld) [#/Vol] 0.19 10*3/uL Low 1.00-4.00 [facility] Comment on above: Order Comment: Speci men Type: BLOOD SPECIMENOrdering Facility: [facility] Address: [address] [place] [address] Performed By: #### 5 7021-8 ####[facility] LABCLIA [id number] [address] LABCLIA [id number] [place] [address] [place] Lymphocytes/100 WBC (Bld) 24.1 % Normal [facility] Comment on above: Order Comment: Speci men Type: BLOOD SPECIMENOrdering Facility: [facility] Address: [address] [place] [address] Performed By: #### 5 7021-8 ####[facility] LABCLIA [id number] [place] [id number] LABCLIA [id number] [place] [address] [place] MCH (RBC) [Entitic mass] 26.2 pg Normal 26.0-34.0 [facility] Comment on above: Order Comment: Speci men Type: BLOOD SPECIMENOrdering Facility: [facility] Address: [address] [place] [address] Performed By: #### 5 7021-8 ####[facility] LABCLIA [id number] [address] LABCLIA [id number] [place] [address] [place] MCHC (RBC) [Mass/Vol] 31.3 g/dL Normal 30.5-36.0 [facility] Comment on above: Order Comment: Speci men Type: BLOOD SPECIMENOrdering Facility: [facility] Address: [address] [place] [address] Performed By: #### 5 7021-8 ####[facility] LABCLIA [id number] [address] LABCLIA [id number] [place] [address] [place] MCV (RBC) [Entitic vol] 83.6 fL Normal 80.0-100.0 [facility] Comment on above: Order Comment: Speci men Type: BLOOD SPECIMENOrdering Facility: [facility] Address: [address] [place] [address] Performed By: #### 5 7021-8 ####[facility] LABCLIA [id number] [address] LABCLIA [id number] [place] [address] [place] Monocytes (Bld) [#/Vol] 0.23 10*3/uL Normal <0.87 [facility] Comment on above: Order Comment: Speci men Type: BLOOD SPECIMENOrdering Facility: [facility] Address: [address] [place] [address] Performed By: #### 5 7021-8 ####[facility] LABCLIA [id number] [address] LABCLIA [id number] [place] [address] [place] Monocytes/100 WBC (Bld) 29.1 % Normal [facility] Comment on above: Order Comment: Speci men Type: BLOOD SPECIMENOrdering Facility: [facility] Address: [address] [place] [address] Performed By: #### 5 7021-8 ####[facility] LABCLIA [id number] [address] LABCLIA [id number] [place] [address] [place] Neutrophils (Bld) [#/Vol] 0.30 10*3/uL Low 1.45-7.50 [facility] Comment on above: Order Comment: Speci men Type: BLOOD SPECIMENOrdering Facility: [facility] Address: [address] [place] [address] Performed By: #### 5 7021-8 ####[facility] LABCLIA [id number] [address] LABCLIA [id number] [place] [address] [place] Neutrophils/100 WBC (Bld) 37.9 % Normal [facility] Comment on above: Order Comment: Speci men Type: BLOOD SPECIMENOrdering Facility: [facility] Address: [address] [place] [address] Performed By: #### 5 7021-8 ####[facility] LABCLIA [id number] [place] [id number] LABCLIA [id number] [place] [address] [place] Nucleated RBC (Bld) [#/Vol] 10*3/uL Normal <0.01 [facility] Comment on above: Order Comment: Speci men Type: BLOOD SPECIMENOrdering Facility: [facility] Address: [address] [place] [address] Performed By: #### 5 7021-8 ####[facility] LABCLIA [id number] [address] LABCLIA [id number] [place] [address] [place] Nucleated RBC/100 WBC (Bld) [Ratio] 0.0 /100 WBC Normal [facility] Comment on above: Order Comment: Speci men Type: BLOOD SPECIMENOrdering Facility: [facility] Address: [address] [place] [address] Performed By: #### 5 7021-8 ####[facility] LABCLIA [id number] [place] [id number] LABCLIA [id number] [place] [address] [place] Ovalocytes LM Ql (Bld) Few Normal [facility] Comment on above: Order Comment: Speci men Type: BLOOD SPECIMENOrdering Facility: [facility] Address: [address] [place] [address] Performed By: #### 5 7021-8 ####[facility] LABCLIA [id number] [place] [id number] LABCLIA [id number] [place] [address] [place] Platelet mean volume (Bld) [Entitic vol] 11.0 fL Normal 9.0-12.7 [facility] Comment on above: Order Comment: Speci men Type: BLOOD SPECIMENOrdering Facility: [facility] Address: [address] [place], [place] [address] Performed By: #### 5 7021-8 ####[facility] LABCLIA [id number] [place], [place] [address]YYDIIUAITMIDDLETOWN [facility] LABCLIA [id number] [facility]ST[facility]ERN[facility]ENTERK [address] [place] [address] [place] Platelets (Bld) [#/Vol] 143 10*3/uL Low 150-400 [facility] Comment on above: Order Comment: Speci men Type: BLOOD SPECIMENOrdering Facility: [facility] Address: [address] [place] [address] Performed By: #### 5 7021-8 ####[facility]ATNTR[facility] LABCLIA [id number] [address] LABCLIA [id number] [facility] [address] [place] [address] [place] Platelets Estimate (Bld) [#/Vol] Decreased Normal [facility] Comment on above: Order Comment: Speci men Type: BLOOD SPECIMENOrdering Facility: [facility] Address: [address] [place] [address] Performed By: #### 5 7021-8 ####[facility] LABCLIA [id number] [place] [id number] LABCLIA [id number] [facility]ENT[facility] [address] [place] [address] [place] Polychromasia LM Ql (Bld) Slight Normal [facility] Comment on above: Order Comment: Speci men Type: BLOOD SPECIMENOrdering Facility: [facility] Address: [address] [place], [place] [address] Performed By: #### 5 7021-8 ####[facility] LABCLIA [id number] [place] [id number] LABCLIA [id number] [facility] [id number] [address] [place] RBC (Bld) [#/Vol] 2.98 10*6/uL Low 4.20-6.00 [facility] Comment on above: Order Comment: Speci men Type: BLOOD SPECIMENOrdering Facility: [facility] Address: [address] [place] [address] Performed By: #### 5 7021-8 ####[facility] LABCLIA [id number] [address] LABCLIA [id number] [place] [address] [place] RBC FRAGMENTS Few Abnormal None Seen [facility] Comment on above: Order Comment: Speci men Type: BLOOD SPECIMENOrdering Facility: [facility] Address: [address] [place] [address] Performed By: #### 5 7021-8 ####[facility] LABCLIA [id number] [address] LABCLIA [id number] [place] [address] [place] RED CELL MORPH Reviewed: see result s of individual morphologies Normal [facility] Comment on above: Order Comment: Speci men Type: BLOOD SPECIMENOrdering Facility: [facility] Address: [address] [place] [address] Performed By: #### 5 7021-8 ####[facility] LABCLIA [id number] [address] LABCLIA [id number] [place] [id number] [place] Toxic granules LM Ql (Bld) Present Normal [facility] Comment on above: Order Comment: Speci men Type: BLOOD SPECIMENOrdering Facility: [facility] Address: [address] [place] [address] Performed By: #### 5 7021-8 ####[facility] LABCLIA [id number] [place], [place] [address]IMHWYVLYS[facility]OWN [facility] LABCLIA [id number] [place] [address] [place] WBC (Bld) [#/Vol] 0.79 10*3/uL Low 3.70-11.00 [facility] Comment on above: Order Comment: Speci men Type: BLOOD SPECIMENOrdering Facility: [facility] Address: [address] [place] [address] Result Comment: No c lot detected. Performed By: #### 5 7021-8 ####[facility] LABCLIA [id number] [place], [place] [address]NINMNUTTFMIDDLETOWN HOSPITAL LABCLIA [id number] [place] [address] [place] CNNURSEon 02-21-2025 CNNURSE Normal [facility] CNOVon 02-21-2025 CNOV Normal [facility] CNOVSPon 02-21-2025 CNOVSP Normal [facility] Comprehensive metabolic 2000 panelon 02-21-2025 Albumin [Mass/Vol] 3.3 g/dL Low 3.9-4.9 [facility] Comment on above: Order Comment: Speci men Type: BLOOD SPECIMENOrdering Facility: [facility] Address: [address] [place] [address] Performed By: #### 2 4323-8, ####[facility] LABCLIA [id number] [place] [address] [place] ALP [Catalytic activity/Vol] 92 U/L Normal 38-113 [facility] Comment on above: Order Comment: Speci men Type: BLOOD SPECIMENOrdering Facility: [facility] Address: [address] [place] [address] Performed By: #### 2 4323-8, ####[facility] LABCLIA [id number] [place] [address] [place] ALT [Catalytic activity/Vol] 10 U/L Normal 10-54 [facility] Comment on above: Order Comment: Speci men Type: BLOOD SPECIMENOrdering Facility: [facility] Address: [address] [place], [place] [address] Performed By: #### 2 4323-8, ####[facility] LABCLIA [id number] [facility] [address] [address] [place] Anion gap [Moles/Vol] 11 mmol/L Normal 8-15 [facility] Comment on above: Order Comment: Speci men Type: BLOOD SPECIMENOrdering Facility: [facility] Address: [address] [place] [address] Performed By: #### 2 4323-8, ####[facility] LABCLIA [id number] [place] [address] [place] AST [Catalytic activity/Vol] 14 U/L Normal 14-40 [facility] Comment on above: Order Comment: Speci men Type: BLOOD SPECIMENOrdering Facility: [facility] Address: [address] [place], [place] [address] Performed By: #### 2 4323-8, ####[facility] LABCLIA [id number] [address], [facility]95 [place] Bilirubin [Mass/Vol] 0.3 mg/dL Normal 0.2-1.3 [facility] Comment on above: Order Comment: Speci men Type: BLOOD SPECIMENOrdering Facility: [facility] Address: [address] [place], [place] [address] Performed By: #### 2 4323-8, ####[facility] LABCLIA [id number] [place] [address] [place] Calcium [Mass/Vol] 8.7 mg/dL Normal 8.5-10.2 [facility] Comment on above: Order Comment: Speci men Type: BLOOD SPECIMENOrdering Facility: [facility] Address: [address] [place] [address] Performed By: #### 2 4323-8, ####[facility] LABCLIA [id number] [address] [address] [place] Chloride [Moles/Vol] 106 mmol/L Normal 98-107 [facility] Comment on above: Order Comment: Speci men Type: BLOOD SPECIMENOrdering Facility: [facility] Address: [address] [place] [address] Performed By: #### 2 4323-8, ####[facility] LABCLIA [id number] [place] [address] [place] CO2 [Moles/Vol] 23 mmol/L Normal 22-30 [facility] Comment on above: Order Comment: Speci men Type: BLOOD SPECIMENOrdering Facility: [facility] Address: [address] [place] [address] Performed By: #### 2 4323-8, ####[facility] LABCLIA [id number] [place] [address] [place] Creatinine [Mass/Vol] 0.73 mg/dL Normal 0.73-1.22 [facility] Comment on above: Order Comment: Speci men Type: BLOOD SPECIMENOrdering Facility: [facility] Address: [address] [place], [place] [address] Performed By: #### 2 4323-8, ####[facility] LABCLIA [id number] [address] [address] [place] eGFRcr SerPlBld CKD-EPI 2020 102 mL/min/1.73m??? Normal >=60 [facility] Comment on above: Order Comment: Speci men Type: BLOOD SPECIMENOrdering Facility: [facility] Address: [address] [place] [address] Result Comment: Carly mated Glomerular Filtration Rate [...] actual GFR. Performed By: #### 2 4323-8, ####[facility] LABCLIA [id number] [address] [address] [place] Glucose [Mass/Vol] 117 mg/dL High 74-99 [facility] Comment on above: Order Comment: Speci men Type: BLOOD SPECIMENOrdering Facility: [facility] Address: [address] [place] [address] Result Comment: The [place] [employer] (ADA) provides guidance for cutoff [...] Standards of Medical Care in Diabetes 2016, [place] [employer]. Diabetes Care. 2016.39(Suppl 1). Performed By: #### 2 4323-8, ####[facility] LABCLIA [id number] [address] [address] [place] Potassium [Moles/Vol] 3.3 mmol/L Low 3.7-5.1 [facility] Comment on above: Order Comment: Speci men Type: BLOOD SPECIMENOrdering Facility: [facility] Address: [address] [place] [id number] Performed By: #### 2 4323-8, ####[facility] LABCLIA [id number] [address] [address] [place] Protein [Mass/Vol] 6.8 g/dL Normal 6.3-8.0 [facility] Comment on above: Order Comment: Speci men Type: BLOOD SPECIMENOrdering Facility: [facility] Address: [address] [place], [place] [address] Performed By: #### 2 4323-8, ####[facility] LABCLIA [id number] [address] [place] [address] [place] Sodium [Moles/Vol] 140 mmol/L Normal 136-144 [facility] Comment on above: Order Comment: Speci men Type: BLOOD SPECIMENOrdering Facility: [facility] Address: [address] [place] [address] Performed By: #### 2 4323-8, ####[facility] LABCLIA [id number] [address], [facility]95 [place] Urea nitrogen [Mass/Vol] 12 mg/dL Normal 9-24 [facility] Comment on above: Order Comment: Speci men Type: BLOOD SPECIMENOrdering Facility: [facility] Address: [address] [place] [address] Performed By: #### 2 4323-8, ####[facility] LABCLIA [id number] [address] [place] [address] [place] Magnesium SerPl-mCncon 02-21 Magnesium [Mass/Vol] 1.9 mg/dL Normal 1.7-2.3 [facility] Comment on above: Order Comment: Speci men Type: BLOOD SPECIMENOrdering Facility: [facility] Address: [address] [place], [place] [address] Performed By: #### 2 4323-8, ####[facility] LABCLIA [id number] [address] [place] [address] [place] CNNURSEon 02-20-2025 CNNURSE Normal [facility] CNOVon 02-20-2025 CNOV Normal [facility] CNPNon 02-20-2025 CNPN Normal [facility] CNNURSEon 02-19-2025 CNNURSE Normal [facility] CNPNon 02-19-2025 CNPN Normal [facility] CNNURSEon 02-16-2025 CNNURSE Normal [facility] CNNURSEon 02-15-2025 CNNURSE Normal [facility] CNPNon 02-15-2025 CNPN Normal [facility] CBC W Auto Differential pane l (Bld)on 02-14-2025 Anisocytosis Ql (Bld) Present Normal [facility] Comment on above: Order Comment: Speci men Type: BLOOD SPECIMENOrdering Facility: [facility] Address: [address] [place] [address] Performed By: #### 5 7021-8 ####[facility] LABCLIA [id number] [address] LABCLIA [id number] [place] [address] [place] Basophils (Bld) [#/Vol] 0.00 10*3/uL Normal <0.11 [facility] Comment on above: Order Comment: Speci men Type: BLOOD SPECIMENOrdering Facility: [facility] Address: [address] [place] [address] Performed By: #### 5 7021-8 ####[facility] LABCLIA [id number] [address] LABCLIA [id number] [place] [address] [place] Basophils/100 WBC (Bld) 0.0 % Normal [facility] Comment on above: Order Comment: Speci men Type: BLOOD SPECIMENOrdering Facility: [facility] Address: [address] [place] [address] Performed By: #### 5 7021-8 ####[facility] LABCLIA [id number] [address] LABCLIA [id number] [place] [address] [place] Differential cell count method Nom (Bld) Manual Normal [facility] Comment on above: Order Comment: Speci men Type: BLOOD SPECIMENOrdering Facility: [facility] Address: [address] [place] [address] Performed By: #### 5 7021-8 ####[facility] LABCLIA [id number] [address] LABCLIA [id number] [place] [address] [place] Eosinophils (Bld) [#/Vol] 0.05 10*3/uL Normal <0.46 [facility] Comment on above: Order Comment: Speci men Type: BLOOD SPECIMENOrdering Facility: [facility] Address: [address] [place] [address] Performed By: #### 5 7021-8 ####[facility] LABCLIA [id number] [address] LABCLIA [id number] [place] [address] [place] Eosinophils/100 WBC (Bld) 0.9 % Normal [facility] Comment on above: Order Comment: Speci men Type: BLOOD SPECIMENOrdering Facility: [facility] Address: [address] [place] [address] Performed By: #### 5 7021-8 ####[facility] LABCLIA [id number] [address] LABCLIA [id number] [place] [address] [place] Erythrocyte distribution width (RBC) [Ratio] 16.4 % High 11.5-15.0 [facility] Comment on above: Order Comment: Speci men Type: BLOOD SPECIMENOrdering Facility: [facility] Address: [address] [place] [address] Performed By: #### 5 7021-8 ####[facility] LABCLIA [id number] [address] LABCLIA [id number] [place] [address] [place] Hematocrit (Bld) [Volume fraction] 22.5 % Low 39.0-51.0 [facility] Comment on above: Order Comment: Speci men Type: BLOOD SPECIMENOrdering Facility: [facility] Address: [address] [place] [address] Performed By: #### 5 7021-8 ####[facility] LABCLIA [id number] [address] LABCLIA [id number] [place] [address] [place] Hemoglobin (Bld) [Mass/Vol] 7.0 g/dL Low 13.0-17.0 [facility] Comment on above: Order Comment: Speci men Type: BLOOD SPECIMENOrdering Facility: [facility] Address: [address] [place] [address] Performed By: #### 5 7021-8 ####[facility] LABCLIA [id number] [address] LABCLIA [id number] [place] [address] [place] Lymphocytes (Bld) [#/Vol] 0.13 10*3/uL Low 1.00-4.00 [facility] Comment on above: Order Comment: Speci men Type: BLOOD SPECIMENOrdering Facility: [facility] Address: [address] [place] [address] Performed By: #### 5 7021-8 ####[facility] LABCLIA [id number] [address] LABCLIA [id number] [place] [address] [place] Lymphocytes/100 WBC (Bld) 2.6 % Normal [facility] Comment on above: Order Comment: Speci men Type: BLOOD SPECIMENOrdering Facility: [facility] Address: [address] [place] [address] Performed By: #### 5 7021-8 ####[facility] LABCLIA [id number] [address] LABCLIA [id number] [place] [address] [place] MCH (RBC) [Entitic mass] 25.3 pg Low 26.0-34.0 [facility] Comment on above: Order Comment: Speci men Type: BLOOD SPECIMENOrdering Facility: [facility] Address: [address] [place], [place] [address] Performed By: #### 5 7021-8 ####[facility] LABCLIA [id number] [address] LABCLIA [id number] [place] [address] [place] MCHC (RBC) [Mass/Vol] 31.1 g/dL Normal 30.5-36.0 [facility] Comment on above: Order Comment: Speci men Type: BLOOD SPECIMENOrdering Facility: [facility] Address: [address] [place] [address] Performed By: #### 5 7021-8 ####[facility] LABCLIA [id number] [address] LABCLIA [id number] [place] [address] [place] MCV (RBC) [Entitic vol] 81.2 fL Normal 80.0-100.0 [facility] Comment on above: Order Comment: Speci men Type: BLOOD SPECIMENOrdering Facility: [facility] Address: [address] [place] [address] Performed By: #### 5 7021-8 ####[facility] LABCLIA [id number] [place] [id number] LABCLIA [id number] [address] [address] [place] Monocytes (Bld) [#/Vol] 0.00 10*3/uL Normal <0.87 [facility] Comment on above: Order Comment: Speci men Type: BLOOD SPECIMENOrdering Facility: [facility] Address: [address] [place] [address] Performed By: #### 5 7021-8 ####[facility] LABCLIA [id number] [address] LABCLIA [id number] [place] [address] [place] Monocytes/100 WBC (Bld) 0.0 % Normal [facility] Comment on above: Order Comment: Speci men Type: BLOOD SPECIMENOrdering Facility: [facility] Address: [address] [place] [address] Performed By: #### 5 7021-8 ####[facility] LABCLIA [id number] [place] [id number] LABCLIA [id number] [place] [address] [place] Neutrophils (Bld) [#/Vol] 4.87 10*3/uL Normal 1.45-7.50 [facility] Comment on above: Order Comment: Speci men Type: BLOOD SPECIMENOrdering Facility: [facility] Address: [address] [place] [address] Performed By: #### 5 7021-8 ####[facility] LABCLIA [id number] [address] LABCLIA [id number] [address] [address] [place] Neutrophils/100 WBC (Bld) 96.5 % Normal [facility] Comment on above: Order Comment: Speci men Type: BLOOD SPECIMENOrdering Facility: [facility] Address: [address] [place] [address] Performed By: #### 5 7021-8 ####[facility] LABCLIA [id number] [address] LABCLIA [id number] [place] [address] [place] Nucleated RBC (Bld) [#/Vol] 10*3/uL Normal <0.01 [facility] Comment on above: Order Comment: Speci men Type: BLOOD SPECIMENOrdering Facility: [facility] Address: [address] [place] [address] Performed By: #### 5 7021-8 ####[facility] LABCLIA [id number] [address] LABCLIA [id number] [place] [address] [place] Nucleated RBC/100 WBC (Bld) [Ratio] 0.0 /100 WBC Normal [facility] Comment on above: Order Comment: Speci men Type: BLOOD SPECIMENOrdering Facility: [facility] Address: [address] [place] [address] Performed By: #### 5 7021-8 ####[facility] LABCLIA [id number] [address] LABCLIA [id number] [place] [address] [place] Ovalocytes LM Ql (Bld) Few Normal [facility] Comment on above: Order Comment: Speci men Type: BLOOD SPECIMENOrdering Facility: [facility] Address: [address] [place] [address] Performed By: #### 5 7021-8 ####[facility] LABCLIA [id number] [place] [id number] LABCLIA [id number] [place] [address] [place] Platelet mean volume (Bld) [Entitic vol] 10.3 fL Normal 9.0-12.7 [facility] Comment on above: Order Comment: Speci men Type: BLOOD SPECIMENOrdering Facility: [facility] Address: [address] [place] [address] Performed By: #### 5 7021-8 ####[facility] LABCLIA [id number] [address] LABCLIA [id number] [place] [address] [place] Platelets (Bld) [#/Vol] 76 10*3/uL Low 150-400 [facility] Comment on above: Order Comment: Speci men Type: BLOOD SPECIMENOrdering Facility: [facility] Address: [address] [place] [address] Result Comment: No c lot detected. Performed By: #### 5 7021-8 ####[facility] LABCLIA [id number] [address] LABCLIA [id number] [place] [address] [place] Platelets Estimate (Bld) [#/Vol] Decreased Normal [facility] Comment on above: Order Comment: Speci men Type: BLOOD SPECIMENOrdering Facility: [facility] Address: [address] [place], [place] [address] Performed By: #### 5 7021-8 ####[facility] LABCLIA [id number] [address] LABCLIA [id number] [place] [address] [place] Polychromasia LM Ql (Bld) Slight Normal [facility] Comment on above: Order Comment: Speci men Type: BLOOD SPECIMENOrdering Facility: [facility] Address: [address] [place] [address] Performed By: #### 5 7021-8 ####[facility] LABCLIA [id number] [address] LABCLIA [id number] [place] [address] [place] RBC (Bld) [#/Vol] 2.77 10*6/uL Low 4.20-6.00 [facility] Comment on above: Order Comment: Speci men Type: BLOOD SPECIMENOrdering Facility: [facility] Address: [address] [place] [address] Performed By: #### 5 7021-8 ####[facility] LABCLIA [id number] [address] LABCLIA [id number] [place] [address] [place] RED CELL MORPH Reviewed: see result s of individual morphologies Normal [facility] Comment on above: Order Comment: Speci men Type: BLOOD SPECIMENOrdering Facility: [facility] Address: [address] [place] [address] Performed By: #### 5 7021-8 ####[facility] LABCLIA [id number] [address] LABCLIA [id number] [place] [address] [place] WBC (Bld) [#/Vol] 5.05 10*3/uL Normal 3.70-11.00 [facility] Comment on above: Order Comment: Speci men Type: BLOOD SPECIMENOrdering Facility: [facility] Address: [address] [place] [address] Performed By: #### 5 7021-8 ####[facility] LABCLIA [id number] [place], [place] [address] LABCLIA [id number] [facility] [address] [address] [place] CNNURSEon 02-14-2025 CNNURSE Normal [facility] CNOVon 02-14-2025 CNOV Normal [facility] CNOVSPon 02-14-2025 CNOVSP Normal [facility] CNPNon 02-14-2025 CNPN Normal [facility] Comprehensive metabolic 2000 panelon 02-14-2025 Albumin [Mass/Vol] 3.5 g/dL Low 3.9-4.9 [facility] Comment on above: Order Comment: Speci men Type: BLOOD SPECIMENOrdering Facility: [facility] Address: [address] [place] [address] Performed By: #### 2 4323-8 ####[facility] LABCLIA [id number] [place] [address] ALP [Catalytic activity/Vol] 103 U/L Normal 38-113 [facility] Comment on above: Order Comment: Speci men Type: BLOOD SPECIMENOrdering Facility: [facility] Address: [address] [place] [address] Performed By: #### 2 4323-8 ####[facility] LABCLIA [id number] [place] [address] ALT [Catalytic activity/Vol] 10 U/L Normal 10-54 [facility] Comment on above: Order Comment: Speci men Type: BLOOD SPECIMENOrdering Facility: [facility] Address: [address] [place] [address] Performed By: #### 2 4323-8 ####[facility] LABIA [id number] [place] [address] Anion gap [Moles/Vol] 12 mmol/L Normal 8-15 [facility] Comment on above: Order Comment: Speci men Type: BLOOD SPECIMENOrdering Facility: [facility] Address: [address] [place] [address] Performed By: #### 2 4323-8 ####[facility] LABCLIA [id number] [place] [address] AST [Catalytic activity/Vol] 18 U/L Normal 14-40 [facility] Comment on above: Order Comment: Speci men Type: BLOOD SPECIMENOrdering Facility: [facility] Address: [address] [place] [address] Performed By: #### 2 4323-8 ####[facility] LABCLIA [id number] [place] [address] Bilirubin [Mass/Vol] 0.3 mg/dL Normal 0.2-1.3 [facility] Comment on above: Order Comment: Speci men Type: BLOOD SPECIMENOrdering Facility: [facility] Address: [address] [place] [address] Performed By: #### 2 4323-8 ####[facility] LABCLIA [id number] [place] [address] Calcium [Mass/Vol] 9.0 mg/dL Normal 8.5-10.2 [facility] Comment on above: Order Comment: Speci men Type: BLOOD SPECIMENOrdering Facility: [facility] Address: [address] [place] [address] Performed By: #### 2 4323-8 ####[facility] LABCLIA [id number] [place] [address] Chloride [Moles/Vol] 105 mmol/L Normal 98-107 [facility] Comment on above: Order Comment: Speci men Type: BLOOD SPECIMENOrdering Facility: [facility] Address: [address] [place] [address] Performed By: #### 2 4323-8 ####[facility] LABCLIA [id number] [place] [address] CO2 [Moles/Vol] 19 mmol/L Low 22-30 [facility] Comment on above: Order Comment: Speci men Type: BLOOD SPECIMENOrdering Facility: [facility] Address: [address] [place] [address] Performed By: #### 2 4323-8 ####[facility] LABCLIA [id number] [place] [address] Creatinine [Mass/Vol] 0.80 mg/dL Normal 0.73-1.22 [facility] Comment on above: Order Comment: Speci men Type: BLOOD SPECIMENOrdering Facility: [facility] Address: [address] [place] [address] Performed By: #### 2 4323-8 ####[facility] LABCLIA [id number] [place] [address] eGFRcr SerPlBld CKD-EPI 2020 99 mL/min/1.73m??? Normal >=60 [facility] Comment on above: Order Comment: Speci men Type: BLOOD SPECIMENOrdering Facility: [facility] Address: [address] [place] [address] Result Comment: Carly mated Glomerular Filtration Rate [...] actual GFR. Performed By: #### 2 4323-8 ####[facility] LABCLIA [id number] [place] [address] Glucose [Mass/Vol] 116 mg/dL High 74-99 [facility] Comment on above: Order Comment: Speci men Type: BLOOD SPECIMENOrdering Facility: [facility] Address: [address] [place] [address] Result Comment: The [place] [employer] (ADA) provides guidance for cutoff [...] Standards of Medical Care in Diabetes 2016, [place] [employer]. Diabetes Care. 2016.39(Suppl 1). Performed By: #### 2 4323-8 ####[facility] LABCLIA [id number] [place] [address] Potassium [Moles/Vol] 4.1 mmol/L Normal 3.7-5.1 [facility] Comment on above: Order Comment: Speci men Type: BLOOD SPECIMENOrdering Facility: [facility] Address: [address] [place] [address] Performed By: #### 2 4323-8 ####[facility] LABCLIA [id number] [place] [address] Protein [Mass/Vol] 7.1 g/dL Normal 6.3-8.0 [facility] Comment on above: Order Comment: Speci men Type: BLOOD SPECIMENOrdering Facility: [facility] Address: [address] [place] [address] Performed By: #### 2 4323-8 ####[facility] LABCLIA [id number] [place] [address] Sodium [Moles/Vol] 136 mmol/L Normal 136-144 [facility] Comment on above: Order Comment: Speci men Type: BLOOD SPECIMENOrdering Facility: [facility] Address: [address] [place] [address] Performed By: #### 2 4323-8 ####[facility] LABCLIA [id number] [place] [address] Urea nitrogen [Mass/Vol] 21 mg/dL Normal 9-24 [facility] Comment on above: Order Comment: Speci men Type: BLOOD SPECIMENOrdering Facility: [facility] Address: [address] [place] [address] Performed By: #### 2 4323-8 ####[facility] LABCLIA [id number] [place] [address] CNNURSEon 02-13-2025 CNNURSE Normal [facility] CNPNon 02-13-2025 CNPN Normal [facility] CNNURSEon 02-09-2025 CNNURSE Normal [facility] POCT EKGon 02-09-2025 [facility] CNNURSEon 02-08-2025 CNNURSE Normal [facility] CNPNon 02-08-2025 CNPN Normal [facility] CNNURSEon 02-07-2025 CNNURSE Normal [facility] CNOVon 02-07-2025 CNOV Normal [facility] CNNURSEon 02-06-2025 CNNURSE Normal [facility] CNOVSPon 02-06-2025 CNOVSP Normal [facility] CNPNon 02-06-2025 CNPN Normal [facility] CBC W Auto Differential pane l (Bld)on 02-05-2025 Basophils (Bld) [#/Vol] 0.12 10*3/uL High <0.11 [facility] Comment on above: Order Comment: Speci men Type: BLOOD SPECIMENOrdering Facility: [facility] Address: [address] [place] [address] Performed By: #### 5 7021-8 ####[facility] LABCLIA [id number] [place] [address] Basophils/100 WBC (Bld) 0.6 % Normal [facility] Comment on above: Order Comment: Speci men Type: BLOOD SPECIMENOrdering Facility: [facility] Address: [address] [place] [address] Performed By: #### 5 7021-8 ####[facility] LABCLIA [id number] [place] [address] Differential cell count method Nom (Bld) Auto Normal [facility] Comment on above: Order Comment: Speci men Type: BLOOD SPECIMENOrdering Facility: [facility] Address: [address] [place] [address] Performed By: #### 5 7021-8 ####[facility] LABCLIA [id number] [place] [address] Eosinophils (Bld) [#/Vol] 10*3/uL Normal <0.46 [facility] Comment on above: Order Comment: Speci men Type: BLOOD SPECIMENOrdering Facility: [facility] Address: [address] [place] [address] Performed By: #### 5 7021-8 ####[facility] LABCLIA [id number] [place] [address] Eosinophils/100 WBC (Bld) 0.0 % Normal [facility] Comment on above: Order Comment: Speci men Type: BLOOD SPECIMENOrdering Facility: [facility] Address: [address] [place] [address] Performed By: #### 5 7021-8 ####[facility] LABCLIA [id number] [place] [address] Erythrocyte distribution width (RBC) [Ratio] 16.6 % High 11.5-15.0 [facility] Comment on above: Order Comment: Speci men Type: BLOOD SPECIMENOrdering Facility: [facility] Address: [address] [place] [address] Performed By: #### 5 7021-8 ####[facility] LABCLIA [id number] [place] [address] Hematocrit (Bld) [Volume fraction] 28.9 % Low 39.0-51.0 [facility] Comment on above: Order Comment: Speci men Type: BLOOD SPECIMENOrdering Facility: [facility] Address: [address] [place] [address] Performed By: #### 5 7021-8 ####[facility] LABCLIA [id number] [place] [address] Hemoglobin (Bld) [Mass/Vol] 9.1 g/dL Low 13.0-17.0 [facility] Comment on above: Order Comment: Speci men Type: BLOOD SPECIMENOrdering Facility: [facility] Address: [address] [place] [address] Performed By: #### 5 7021-8 ####[facility] LABCLIA [id number] [place] [address] Immature granulocytes (Bld) [#/Vol] 0.24 10*3/uL High <0.10 [facility] Comment on above: Order Comment: Speci men Type: BLOOD SPECIMENOrdering Facility: [facility] Address: [address] [place] [address] Performed By: #### 5 7021-8 ####[facility] LABCLIA [id number] [place] [address] Immature granulocytes/100 WBC (Bld) 1.2 % Normal [facility] Comment on above: Order Comment: Speci men Type: BLOOD SPECIMENOrdering Facility: [facility] Address: [address] [place] [address] Performed By: #### 5 7021-8 ####[facility] LABCLIA [id number] [place] [address] Lymphocytes (Bld) [#/Vol] 0.38 10*3/uL Low 1.00-4.00 [facility] Comment on above: Order Comment: Speci men Type: BLOOD SPECIMENOrdering Facility: [facility] Address: [address] [place] [address] Performed By: #### 5 7021-8 ####[facility] LABCLIA [id number] [place] [address] Lymphocytes/100 WBC (Bld) 1.9 % Normal [facility] Comment on above: Order Comment: Speci men Type: BLOOD SPECIMENOrdering Facility: [facility] Address: [address] [place] [address] Performed By: #### 5 7021-8 ####[facility] LABCLIA [id number] [place] [address] MCH (RBC) [Entitic mass] 25.9 pg Low 26.0-34.0 [facility] Comment on above: Order Comment: Speci men Type: BLOOD SPECIMENOrdering Facility: [facility] Address: [address] [place] [address] Performed By: #### 5 7021-8 ####[facility] LABCLIA [id number] [place] [address] MCHC (RBC) [Mass/Vol] 31.5 g/dL Normal 30.5-36.0 [facility] Comment on above: Order Comment: Speci men Type: BLOOD SPECIMENOrdering Facility: [facility] Address: [address] [place] [address] Performed By: #### 5 7021-8 ####[facility] LABIA [id number] [place] [address] MCV (RBC) [Entitic vol] 82.1 fL Normal 80.0-100.0 [facility] Comment on above: Order Comment: Speci men Type: BLOOD SPECIMENOrdering Facility: [facility] Address: [address] [place] [address] Performed By: #### 5 7021-8 ####[facility] LABIA [id number] [place] [address] Monocytes (Bld) [#/Vol] 1.10 10*3/uL High <0.87 [facility] Comment on above: Order Comment: Speci men Type: BLOOD SPECIMENOrdering Facility: [facility] Address: [address] [place] [address] Performed By: #### 5 7021-8 ####[facility] LABCLIA [id number] [place] [address] Monocytes/100 WBC (Bld) 5.6 % Normal [facility] Comment on above: Order Comment: Speci men Type: BLOOD SPECIMENOrdering Facility: [facility] Address: [address] [place] [address] Performed By: #### 5 7021-8 ####[facility] LABCLIA [id number] [place] [address] Neutrophils (Bld) [#/Vol] 17.87 10*3/uL High 1.45-7.50 [facility] Comment on above: Order Comment: Speci men Type: BLOOD SPECIMENOrdering Facility: [facility] Address: [address] [place] [address] Performed By: #### 5 7021-8 ####[facility] LABCLIA [id number] [place] [address] Neutrophils/100 WBC (Bld) 90.7 % Normal [facility] Comment on above: Order Comment: Speci men Type: BLOOD SPECIMENOrdering Facility: [facility] Address: [address] [place] [address] Performed By: #### 5 7021-8 ####[facility] LABCLIA [id number] [place] [address] Nucleated RBC (Bld) [#/Vol] 10*3/uL Normal <0.01 [facility] Comment on above: Order Comment: Speci men Type: BLOOD SPECIMENOrdering Facility: [facility] Address: [address] [place] [address] Performed By: #### 5 7021-8 ####[facility] LABCLIA [id number] [place] [address] Nucleated RBC/100 WBC (Bld) [Ratio] 0.0 /100 WBC Normal [facility] Comment on above: Order Comment: Speci men Type: BLOOD SPECIMENOrdering Facility: [facility] Address: [address] [place] [address] Performed By: #### 5 7021-8 ####[facility] LABCLIA [id number] [place] [address] Platelet mean volume (Bld) [Entitic vol] 9.7 fL Normal 9.0-12.7 [facility] Comment on above: Order Comment: Speci men Type: BLOOD SPECIMENOrdering Facility: [facility] Address: [address] [place] [address] Performed By: #### 5 7021-8 ####[facility] LABCLIA [id number] [place] [address] Platelets (Bld) [#/Vol] 426 10*3/uL High 150-400 [facility] Comment on above: Order Comment: Speci men Type: BLOOD SPECIMENOrdering Facility: [facility] Address: [address] [place] [address] Performed By: #### 5 7021-8 ####[facility] LABCLIA [id number] [place] [address] RBC (Bld) [#/Vol] 3.52 10*6/uL Low 4.20-6.00 [facility] Comment on above: Order Comment: Speci men Type: BLOOD SPECIMENOrdering Facility: [facility] Address: [address] [place] [address] Performed By: #### 5 7021-8 ####[facility] LABCLIA [id number] [place] [address] WBC (Bld) [#/Vol] 19.71 10*3/uL High 3.70-11.00 [facility] Comment on above: Order Comment: Speci men Type: BLOOD SPECIMENOrdering Facility: [facility] Address: [address] [place] [address] Performed By: #### 5 7021-8 ####[facility] LABCLIA [id number] [place] [address] CNNURSEon 02-05-2025 CNNURSE Normal [facility] CNOVSPon 02-05-2025 CNOVSP Normal [facility] Comprehensive metabolic 2000 panelon 02-05-2025 Albumin [Mass/Vol] 3.4 g/dL Low 3.9-4.9 [facility] Comment on above: Order Comment: Speci men Type: BLOOD SPECIMENOrdering Facility: [facility] Address: [address] [place] [address] Performed By: #### 1 9123-9, 51255-8 ####[facility] LABCLIA [id number] [place] [address] ALP [Catalytic activity/Vol] 95 U/L Normal 38-113 [facility] Comment on above: Order Comment: Speci men Type: BLOOD SPECIMENOrdering Facility: [facility] Address: [address] [place] [address] Performed By: #### 1 9123-9, 82239-8 ####[facility] LABCLIA [id number] [place] [address] ALT [Catalytic activity/Vol] 10 U/L Normal 10-54 [facility] Comment on above: Order Comment: Speci men Type: BLOOD SPECIMENOrdering Facility: [facility] Address: [address] [place] [address] Performed By: #### 1 9123-9, 26176-3 ####[facility] LABCLIA [id number] [place] [address] Anion gap [Moles/Vol] 13 mmol/L Normal 8-15 [facility] Comment on above: Order Comment: Speci men Type: BLOOD SPECIMENOrdering Facility: [facility] Address: [address] [place] [address] Performed By: #### 1 9123-9, 98087-3 ####[facility] LABCLIA [id number] [place] [address] AST [Catalytic activity/Vol] 12 U/L Low 14-40 [facility] Comment on above: Order Comment: Speci men Type: BLOOD SPECIMENOrdering Facility: [facility] Address: [address] [place] [id number] Performed By: #### 1 9123-9, ####KAYLA MUNSON [facility] LABCLIA [id number] [place] [address] Bilirubin [Mass/Vol] 0.3 mg/dL Normal 0.2-1.3 [facility] Comment on above: Order Comment: Speci men Type: BLOOD SPECIMENOrdering Facility: [facility] Address: [address] [place], [place] [address] Performed By: #### 1 9123-9, ####KAYLA [facility] LABIA [id number] [place] [address] Calcium [Mass/Vol] 9.1 mg/dL Normal 8.5-10.2 [facility] Comment on above: Order Comment: Speci men Type: BLOOD SPECIMENOrdering Facility: [facility] Address: [address] [place], [place] [address] Performed By: #### 1 9123-9, 09457-2 ####KAYLA [facility] LABIA [id number] [place] [address] Chloride [Moles/Vol] 104 mmol/L Normal 98-107 [facility] Comment on above: Order Comment: Speci men Type: BLOOD SPECIMENOrdering Facility: [facility] Address: [address] [place] [address] Performed By: #### 1 9123-9, 03878-3 ####TATIANNATNTROY [facility] LABCLIA [id number] [place] [address] CO2 [Moles/Vol] 19 mmol/L Low 22-30 [facility] Comment on above: Order Comment: Speci men Type: BLOOD SPECIMENOrdering Facility: [facility] Address: [address] [place] [address] Performed By: #### 1 9123-9, 93592-1 ####[facility] LABCLIA [id number] [place] [address] Creatinine [Mass/Vol] 0.89 mg/dL Normal 0.73-1.22 [facility] Comment on above: Order Comment: Ange hull Type: BLOOD SPECIMENOrdering Facility: [facility] Address: [address] [place] [address] Performed By: #### 1 9123-9, 11132-1 ####[facility] LABCLIA [id number] [place] [address] eGFRcr SerPlBld CKD-EPI 2020 96 mL/min/1.73m??? Normal >=60 [facility] Comment on above: Order Comment: Ange hull Type: BLOOD SPECIMENOrdering Facility: [facility] Address: [address] [place] [address] Result Comment: Carly mated Glomerular Filtration Rate [...] actual GFR. Performed By: #### 1 9123-9, 65176-4 ####[facility] LABCLIA [id number] [place] [address] Glucose [Mass/Vol] 132 mg/dL High 74-99 [facility] Comment on above: Order Comment: Ange hull Type: BLOOD SPECIMENOrdering Facility: [facility] Address: [address] [id number] Result Comment: The [place] [employer] (ADA) provides guidance for cutoff [...] Standards of Medical Care in Diabetes 2016, [place] [employer]. Diabetes Care. 2016.39(Suppl 1). Performed By: #### 1 9123-9, ####[facility] LABCLIA [id number] [place] [address] Potassium [Moles/Vol] 3.2 mmol/L Low 3.7-5.1 [facility] Comment on above: Order Comment: Speci men Type: BLOOD SPECIMENOrdering Facility: [facility] Address: [address] [place] [address] Performed By: #### 1 239, ####[facility] LABIA [id number] [place] [address] Protein [Mass/Vol] 7.3 g/dL Normal 6.3-8.0 [facility] Comment on above: Order Comment: Speci men Type: BLOOD SPECIMENOrdering Facility: [facility] Address: [address] [place] [address] Performed By: #### 1 239, ####[facility] LABIA [id number] [place] [address] Sodium [Moles/Vol] 136 mmol/L Normal 136-144 [facility] Comment on above: Order Comment: Speci men Type: BLOOD SPECIMENOrdering Facility: [facility] Address: [address] [place] [address] Performed By: #### 1 239, ####[facility] LABIA [id number] [place] [address] Urea nitrogen [Mass/Vol] 19 mg/dL Normal 9-24 [facility] Comment on above: Order Comment: Speci men Type: BLOOD SPECIMENOrdering Facility: [facility] Address: [address] [place] [address] [place] [address] Performed By: #### 1 9123-9, 86390-7 ####[facility] LABIA [id number] [place] [address] Family Medicine Office/Clini c Noteon 02-05-2025 Family [...] kidney stones Hospital discharge follow-up Hx of fci use of blood thinners Impaired mobility Kidney [...] virus vaccine, inactivated 03/14/2017 Recorded Normal [facility] Comment on above: Result Comment: Elec tronically Signed By: Carlos Sethi\.br\Date and Time Signed: 02/05/25 15:50 EDT Magnesium SerPl-mCncon 02-05 Magnesium [Mass/Vol] 1.7 mg/dL Normal 1.7-2.3 [facility] Comment on above: Order Comment: Speci men Type: BLOOD SPECIMENOrdering Facility: [facility] Address: [address] [place] [address] Performed By: #### 1 9123-9, 13279-8 ####[facility] LABCLIA [id number] [place] [address] Ambulatory Visit Summaryon 0 02-02-2025 Ambulatory Visit [...] kidney stones Hospital discharge follow-up 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 Language Information Language assistance services are available as needed. Normal [facility] CNNURSEon 02-02-2025 CNNURSE Normal [facility] CNNURSEon 02-01-2025 CNNURSE Normal [facility] CNNURSEon 01-31-2025 CNNURSE Normal [facility] CNOVon 01-31-2025 CNOV Normal [facility] CNNURSEon 01-30-2025 CNNURSE Normal [facility] CNOVSPon 01-30-2025 CNOVSP Normal [facility] CNPNon 01-30-2025 CNPN Normal [facility] CNNURSEon 01-29-2025 CNNURSE Normal [facility] Bacteria Bld Culton 01-27-20 25 Bacteria identified Cx Nom (Bld) CULTURE, BLOOD: No growth 5 days Normal [facility] Comment on above: Performed By: #### 6 00-7 ####[facility] LABCLIA [id number] [facility] [address] [place] [address] [place] Bacteria identified Cx Nom (Bld) CULTURE, BLOOD: No growth 5 days Normal [facility] Comment on above: Performed By: #### 6 00-7 ####[facility] LABCLIA [id number] [facility] [address] [place] [address] [place] Bacteria Ur Culton 5 Bacteria identified Cx Nom (U) ORGANISM ID: 1 <10,000 CFU/ml Normal urogenital felisa Normal [facility] Comment on above: Performed By: #### 6 30-4 ####[facility] LABCLIA [id number] [facility] [address] [place] [address] [place] CNNURSEon 01-26-2025 CNNURSE [facility] CNPNon 01-26-2025 CNPN Normal [facility] UA DIP, URINE (POC)on 2024 BILIRUBIN UA (POCT) Small Abnormal Negative [facility] CLARITY UA (POCT) Slightly Cloudy Cl [facility] COLOR UA (POCT) Tonja [facility] GLUCOSE UA (POCT) Negative Negative mg/dL [facility] Hemoglobin Ql (U) Negative Negative [facility] Interpretation and review of laboratory results Abnormal [facility] KETONE UA (POCT) 15 mg/dL Abnormal Negative [facility] LEUKOCYTES UA (POCT) Negative Negative [facility] NITRITE UA (POCT) Negative [facility] PH UA (POCT) 6.0 4.5 - 8.0 [facility] Protein Ql (U) 100 mg/dL Abnormal Negative [facility] SPECIFIC GRAVITY UA (POCT) 1.020 1.005 - 1.030 [facility] UROBILINOGEN UA (POCT) 0.2 Karen l E.U./dL [facility] Location:[facility], [address] [facility] , [place], [place], [id number] [place] [address] POINT OF CARE [facility] XR CHEST 2V FRONTAL/LATon XR CHEST 2V FRONTAL/LAT Normal [facility] XR Chest PA and Lateralon IMPRESSION: [...] any questions regarding this interpretation, please call [phone]. If you are unable to reach us at the number above, please feel free to contact [facility] eRadiology at [phone]. DIVISION OF RADIOLOGY * * *Final Report* [...] vasculature is unremarkable. DIVISION OF RADIOLOGY Provider, [facility] Omid [facility] - 01/26/2025 * * *Final Report* [...] any questions regarding this interpretation, please call [phone]. If you are unable to reach us at the number above, please feel free to contact [facility] eRadiology at [phone]. [facility] Radiology Study observation (narrative) Aniket carvalho [facility] XR Chest PA and LateralOrder ed By: Cc Provider on 01-26-2025 [facility] CBC W Auto Differential pane l (Bld)Ordered By: Elpidio Smith on 01-25-2025 Anisocytosis Ql (Bld) Present [facility] Basophils (Bld) [#/Vol] NINF C [facility] Basophils/100 WBC (Bld) 1.0 % C [facility] Eosinophils (Bld) [#/Vol] 0.07 10*3/uL NINF [facility] Eosinophils/100 WBC (Bld) 3.5 % [facility] Erythrocyte distribution width (RBC) [Ratio] 15.2 % High 11.5 - 15.0 % [facility] Hematocrit (Bld) [Volume fraction] 28.8 % Low 39.0 - 51.0 % [facility] Hemoglobin (Bld) [Mass/Vol] 9.4 g/dL Low 13.0 - 17.0 g/dL [facility] Immature granulocytes (Bld) [#/Vol] NINF [facility] Immature granulocytes/100 WBC (Bld) 1.0 % [facility] Interpretation and review of laboratory results Abnormal [facility] Lymphocytes (Bld) [#/Vol] 0.87 10*3/uL Low [facility] Lymphocytes/100 WBC (Bld) 43.7 % [facility] MCH (RBC) [Entitic mass] 26.6 pg 26.0 - 34.0 pg [facility] MCHC (RBC) [Mass/Vol] 32.6 g/dL 30.5 - 36.0 g/dL [facility] MCV (RBC) [Entitic vol] 81.4 fL 80.0 - 100.0 fL [facility] Monocytes (Bld) [#/Vol] 0.65 10*3/uL [facility] Monocytes/100 WBC (Bld) 32.7 % C [facility] Neutrophils (Bld) [#/Vol] 0.36 10*3/uL Low [facility] Neutrophils/100 WBC (Bld) 18.1 % [facility] Ovalocytes LM Ql (Bld) Few Cl [facility] Platelet clump LM Ql (Bld) Present [facility] Platelet mean volume (Bld) [Entitic vol] 10.2 fL 9.0 - 12.7 fL [facility] Platelets (Bld) [#/Vol] 270 10*3/uL [facility] Comment on above: No clot detected. Platelets Estimate (Bld) [#/Vol] Adequate [facility] RBC (Bld) [#/Vol] 3.54 10*6/uL Low 4.20 - 6.00 m/uL [facility] RBC Fragments Few Abnormal None Seen [facility] Red Cell Morph Reviewed: see result s of individual morphologies [facility] WBC (Bld) [#/Vol] 1.99 10*3/uL Low [facility] WBC Left Shift Ql (Bld) Present C [facility] The following result s were reported as preliminary values due to instrument flagging. Interpret with caution. Final results may vary. Results requested and read back by: CHARLOTTE BUTLER AT 1455 ON 01-24-25 BY Mason SUTTON ANC=0.36 [facility] CNNURSEon 01-25-2025 CNNURSE Normal [facility] CNPNon 01-25-2025 CNPN Normal [facility] CBC W Auto Differential pane l (Bld)on 01-24-2025 Anisocytosis Ql (Bld) Present Normal [facility] Comment on above: Order Comment: Speci men Type: BLOOD SPECIMENOrdering Facility: [facility] Address: [address] [place] [address] Performed By: #### 5 7021-8 ####[facility] LABCLIA [id number] [address] LABCLIA [id number] [place] [address] [place] Basophils (Bld) [#/Vol] 10*3/uL Normal <0.11 [facility] Comment on above: Order Comment: Speci men Type: BLOOD SPECIMENOrdering Facility: [facility] Address: [address] [place] [address] Performed By: #### 5 7021-8 ####[facility] LABCLIA [id number] [address] LABCLIA [id number] [place] [address] [place] Basophils/100 WBC (Bld) 1.0 % Normal [facility] Comment on above: Order Comment: Speci men Type: BLOOD SPECIMENOrdering Facility: [facility] Address: [address] [place] [address] Performed By: #### 5 7021-8 ####[facility] LABCLIA [id number] [address] LABCLIA [id number] [place] [id number] [place] Eosinophils (Bld) [#/Vol] 0.07 10*3/uL Normal <0.46 [facility] Comment on above: Order Comment: Speci men Type: BLOOD SPECIMENOrdering Facility: [facility] Address: [address] [place] [address] Performed By: #### 5 7021-8 ####[facility] LABCLIA [id number] [address] LABCLIA [id number] [place] [address] [place] Eosinophils/100 WBC (Bld) 3.5 % Normal [facility] Comment on above: Order Comment: Speci men Type: BLOOD SPECIMENOrdering Facility: [facility] Address: [address] [place] [address] Performed By: #### 5 7021-8 ####[facility] LABCLIA [id number] [address] LABCLIA [id number] [place] [address] [place] Erythrocyte distribution width (RBC) [Ratio] 15.2 % High 11.5-15.0 [facility] Comment on above: Order Comment: Speci men Type: BLOOD SPECIMENOrdering Facility: [facility] Address: [address] [place] [address] Performed By: #### 5 7021-8 ####[facility] LABCLIA [id number] [address] LABCLIA [id number] [place] [address] [place] Hematocrit (Bld) [Volume fraction] 28.8 % Low 39.0-51.0 [facility] Comment on above: Order Comment: Speci men Type: BLOOD SPECIMENOrdering Facility: [facility] Address: [address] [place] [address] Performed By: #### 5 7021-8 ####[facility] LABCLIA [id number] [place] [id number] LABCLIA [id number] [address] [address] [place] Hemoglobin (Bld) [Mass/Vol] 9.4 g/dL Low 13.0-17.0 [facility] Comment on above: Order Comment: Speci men Type: BLOOD SPECIMENOrdering Facility: [facility] Address: [address] [place] [address] Performed By: #### 5 7021-8 ####[facility] LABCLIA [id number] [address] LABCLIA [id number] [place] [id number] [place] Immature granulocytes (Bld) [#/Vol] 10*3/uL Normal <0.10 [facility] Comment on above: Order Comment: Speci men Type: BLOOD SPECIMENOrdering Facility: [facility] Address: [address] [place] [address] Performed By: #### 5 7021-8 ####[facility] LABCLIA [id number] [address] LABCLIA [id number] [place] [id number] [place] Immature granulocytes/100 WBC (Bld) 1.0 % Normal [facility] Comment on above: Order Comment: Speci men Type: BLOOD SPECIMENOrdering Facility: [facility] Address: [address] [place] [address] Performed By: #### 5 7021-8 ####[facility] LABCLIA [id number] [address] LABCLIA [id number] [place] [id number] [place] Lymphocytes (Bld) [#/Vol] 0.87 10*3/uL Low 1.00-4.00 [facility] Comment on above: Order Comment: Speci men Type: BLOOD SPECIMENOrdering Facility: [facility] Address: [address] [place] [address] Performed By: #### 5 7021-8 ####[facility] LABCLIA [id number] [address] LABCLIA [id number] [place] [address] [place] Lymphocytes/100 WBC (Bld) 43.7 % Normal [facility] Comment on above: Order Comment: Speci men Type: BLOOD SPECIMENOrdering Facility: [facility] Address: [address] [place] [address] Performed By: #### 5 7021-8 ####[facility] LABCLIA [id number] [address] LABCLIA [id number] [place] [address] [place] MCH (RBC) [Entitic mass] 26.6 pg Normal 26.0-34.0 [facility] Comment on above: Order Comment: Speci men Type: BLOOD SPECIMENOrdering Facility: [facility] Address: [address] [place] [address] Performed By: #### 5 7021-8 ####[facility] LABCLIA [id number] [address] LABCLIA [id number] [place] [address] [place] MCHC (RBC) [Mass/Vol] 32.6 g/dL Normal 30.5-36.0 [facility] Comment on above: Order Comment: Speci men Type: BLOOD SPECIMENOrdering Facility: [facility] Address: [address] [place] [address] Performed By: #### 5 7021-8 ####[facility] LABCLIA [id number] [place] [id number] LABCLIA [id number] [place] [address] [place] MCV (RBC) [Entitic vol] 81.4 fL Normal 80.0-100.0 [facility] Comment on above: Order Comment: Speci men Type: BLOOD SPECIMENOrdering Facility: [facility] Address: [address] [place] [address] Performed By: #### 5 7021-8 ####[facility] LABCLIA [id number] [address] LABCLIA [id number] [place] [address] [place] Monocytes (Bld) [#/Vol] 0.65 10*3/uL Normal <0.87 [facility] Comment on above: Order Comment: Speci men Type: BLOOD SPECIMENOrdering Facility: [facility] Address: [address] [place] [address] Performed By: #### 5 7021-8 ####[facility] LABCLIA [id number] [address] LABCLIA [id number] [place] [address] [place] Monocytes/100 WBC (Bld) 32.7 % Normal [facility] Comment on above: Order Comment: Speci men Type: BLOOD SPECIMENOrdering Facility: [facility] Address: [address] [place] [address] Performed By: #### 5 7021-8 ####[facility] LABCLIA [id number] [address] LABCLIA [id number] [place] [address] [place] Neutrophils (Bld) [#/Vol] 0.36 10*3/uL Low 1.45-7.50 [facility] Comment on above: Order Comment: Speci men Type: BLOOD SPECIMENOrdering Facility: [facility] Address: [address] [place] [address] Performed By: #### 5 7021-8 ####[facility]ENTERTR[facility] LABCLIA [id number] [address] LABCLIA [id number] [place] [address] [place] Neutrophils/100 WBC (Bld) 18.1 % Normal [facility] Comment on above: Order Comment: Speci men Type: BLOOD SPECIMENOrdering Facility: [facility] Address: [address] [place] [address] Performed By: #### 5 7021-8 ####[facility] LABCLIA [id number] [address] LABCLIA [id number] [place] [address] [place] Ovalocytes LM Ql (Bld) Few Normal [facility] Comment on above: Order Comment: Speci men Type: BLOOD SPECIMENOrdering Facility: [facility] Address: [address] [place] [address] Performed By: #### 5 7021-8 ####[facility] LABCLIA [id number] [address] LABCLIA [id number] [place] [address] [place] Platelet clump LM Ql (Bld) Present Normal [facility] Comment on above: Order Comment: Speci men Type: BLOOD SPECIMENOrdering Facility: [facility] Address: [address] [place] [address] Performed By: #### 5 7021-8 ####[facility] LABCLIA [id number] [address] [facility] LABCLIA [id number] [address] [address] [place] Platelet mean volume (Bld) [Entitic vol] 10.2 fL Normal 9.0-12.7 [facility] Comment on above: Order Comment: Speci men Type: BLOOD SPECIMENOrdering Facility: [facility] Address: [address] [place] [address] Performed By: #### 5 7021-8 ####[facility] LABCLIA [id number] [address] LABCLIA [id number] [place] [address] [place] Platelets (Bld) [#/Vol] 270 10*3/uL Normal 150-400 [facility] Comment on above: Order Comment: Speci men Type: BLOOD SPECIMENOrdering Facility: [facility] Address: [address] [place] [address] Result Comment: No c lot detected. Performed By: #### 5 7021-8 ####[facility] LABCLIA [id number] [address] LABCLIA [id number] [place] [address] [place] Platelets Estimate (Bld) [#/Vol] Adequate Normal [facility] Comment on above: Order Comment: Speci men Type: BLOOD SPECIMENOrdering Facility: [facility] Address: [address] [place] [address] Performed By: #### 5 7021-8 ####[facility] LABCLIA [id number] [address] LABCLIA [id number] [place] [address] [place] RBC (Bld) [#/Vol] 3.54 10*6/uL Low 4.20-6.00 [facility] Comment on above: Order Comment: Speci men Type: BLOOD SPECIMENOrdering Facility: [facility] Address: [address] [place] [address] Performed By: #### 5 7021-8 ####[facility]LA [facility] LABCLIA [id number] [place] [id number] LABCLIA [id number] [place] [address] [place] RBC FRAGMENTS Few Abnormal None Seen [facility] Comment on above: Order Comment: Speci men Type: BLOOD SPECIMENOrdering Facility: [facility] Address: [address] [place] [address] Performed By: #### 5 7021-8 ####[facility]IANNATNTROY [facility] LABCLIA [id number] [address] LABCLIA [id number] [place] [address] [place] RED CELL MORPH Reviewed: see result s of individual morphologies Normal [facility] Comment on above: Order Comment: Speci men Type: BLOOD SPECIMENOrdering Facility: [facility] Address: [address] [place] [address] Performed By: #### 5 7021-8 ####[facility] LABCLIA [id number] [address] LABCLIA [id number] [place] [address] [place] WBC (Bld) [#/Vol] 1.99 10*3/uL Low 3.70-11.00 [facility] Comment on above: Order Comment: Speci men Type: BLOOD SPECIMENOrdering Facility: [facility] Address: [address] [place] [address] Performed By: #### 5 7021-8 ####[facility] LABCLIA [id number] [address] LABCLIA [id number] [place] [address] [place] WBC Left Shift Ql (Bld) Present Normal [facility] Comment on above: Order Comment: Speci men Type: BLOOD SPECIMENOrdering Facility: [facility] Address: [address] [place] [address] Performed By: #### 5 7021-8 ####[facility] LABCLIA [id number] [place], [place] [address]DR[facility] LABCLIA [id number] [place] [address] [place] CNNURSEon 01-24-2025 CNNURSE Normal [facility] CNOVon 01-24-2025 CNOV Normal [facility] CNPNon 01-24-2025 CNPN Normal [facility] Comprehensive metabolic 2000 panelOrdered By: Kayla Sutton on 01-24-2025 Albumin [Mass/Vol] 3.8 g/dL Low 3.9 - 4.9 g/dL [facility] ALP [Catalytic activity/Vol] 73 U/L 38 - 113 U/L [facility] ALT [Catalytic activity/Vol] 11 U/L 10 - 54 U/L [facility] Anion gap [Moles/Vol] 12 mmol/L 8 - 15 mmol/L [facility] AST [Catalytic activity/Vol] 10 U/L Low 14 - 40 U/L [facility] Bilirubin [Mass/Vol] 0.4 mg/dL 0.2 - 1 .3 mg/dL [facility] Calcium [Mass/Vol] 9.6 mg/dL 8.5 - 10. 2 mg/dL [facility] Chloride [Moles/Vol] 98 mmol/L 98 - 10 7 mmol/L [facility] CO2 [Moles/Vol] 21 mmol/L Low 22 - 30 mmol/L [facility] Creatinine [Mass/Vol] 0.88 mg/dL 0.73 - 1.22 mg/dL [facility] GFR/1.73 sq M.predicted among non-blacks MDRD (S/P/Bld) [Vol rate/Area] 97 mL/min/{1.73_m2} - PINF [facility] Comment on above: Estimated Glomerular Filtration Rate (eGFR) is calculated using the 202 CKD-EPI creatinine equation. This equation utilizes serum creatinine, sex, and age as parameters. The creatinine assay has traceable calibration to isotope dilution-mass spectrometry. Refer to KDIGO guidelines for clinical interpretation. In patients with unstable renal function, e.g. those with acute kidney injury, the eGFR may not accurately reflect actual GFR. Glucose [Mass/Vol] 93 mg/dL 74 - 99 mg/dL [facility] Comment on above: The [place] Diab[employer] [place] Association (ADA) provides guidance for [...] Standards of Medical Care in Diabetes 2016, [place] [employer]. Diabetes Care. 2016.39(Suppl 1). Interpretation and review of laboratory results Abnormal [facility] Potassium [Moles/Vol] 4.5 mmol/L 3.7 - 5.1 mmol/L [facility] Protein [Mass/Vol] 7.9 g/dL 6.3 - 8.0 g/dL [facility] Sodium [Moles/Vol] 131 mmol/L Low 136 - 144 mmol/L [facility] Urea nitrogen [Mass/Vol] 17 mg/dL 9 - 24 mg/dL [facility] Comprehensive metabolic 2000 panelon 01-24-2025 Albumin [Mass/Vol] 3.8 g/dL Low 3.9-4.9 [facility] Comment on above: Order Comment: Speci men Type: BLOOD SPECIMENOrdering Facility: [facility] Address: [address] [address] Performed By: #### 2 4323-8 ####[facility] LABCLIA [id number] [place] [address] ALP [Catalytic activity/Vol] 73 U/L Normal 38-113 [facility] Comment on above: Order Comment: Speci men Type: BLOOD SPECIMENOrdering Facility: [facility] Address: [address] [place] [address] Performed By: #### 2 4323-8 ####[facility] LABCLIA [id number] [place] [address] ALT [Catalytic activity/Vol] 11 U/L Normal 10-54 [facility] Comment on above: Order Comment: Speci men Type: BLOOD SPECIMENOrdering Facility: [facility] Address: [address] [place] [address] Performed By: #### 2 4323-8 ####[facility] LABCLIA [id number] [place] [address] Anion gap [Moles/Vol] 12 mmol/L Normal 8-15 [facility] Comment on above: Order Comment: Speci men Type: BLOOD SPECIMENOrdering Facility: [facility] Address: [address] [place] [address] Performed By: #### 2 4323-8 ####[facility] LABCLIA [id number] [place] [address] AST [Catalytic activity/Vol] 10 U/L Low 14-40 [facility] Comment on above: Order Comment: Speci men Type: BLOOD SPECIMENOrdering Facility: [facility] Address: [address] [place], [place] [id number] Performed By: #### 2 4323-8 ####[facility] LABCLIA [id number] [place] [address] Bilirubin [Mass/Vol] 0.4 mg/dL Normal 0.2-1.3 [facility] Comment on above: Order Comment: Speci men Type: BLOOD SPECIMENOrdering Facility: [facility] Address: [address] [place] [address] Performed By: #### 2 4323-8 ####[facility] LABCLIA [id number] [place] [address] Calcium [Mass/Vol] 9.6 mg/dL Normal 8.5-10.2 [facility] Comment on above: Order Comment: Speci men Type: BLOOD SPECIMENOrdering Facility: [facility] Address: [address] [place] [address] Performed By: #### 2 4323-8 ####[facility] LABCLIA [id number] [place] [address] Chloride [Moles/Vol] 98 mmol/L Normal 98-107 [facility] Comment on above: Order Comment: Speci men Type: BLOOD SPECIMENOrdering Facility: [facility] Address: [address] [place] [address] Performed By: #### 2 4323-8 ####[facility] LABCLIA [id number] [place] [address] CO2 [Moles/Vol] 21 mmol/L Low 22-30 [facility] Comment on above: Order Comment: Speci men Type: BLOOD SPECIMENOrdering Facility: [facility] Address: [address] [place] [address] Performed By: #### 2 4323-8 ####[facility] LABCLIA [id number] [place] [address] Creatinine [Mass/Vol] 0.88 mg/dL Normal 0.73-1.22 [facility] Comment on above: Order Comment: Speci men Type: BLOOD SPECIMENOrdering Facility: [facility] Address: [address] [place] [address] Performed By: #### 2 4323-8 ####[facility] LABCLIA [id number] [place] [address] eGFRcr SerPlBld CKD-EPI 2021 97 mL/min/1.73m??? Normal >=60 [facility] Comment on above: Order Comment: Speci men Type: BLOOD SPECIMENOrdering Facility: [facility] Address: [address] [place] [address] Result Comment: Carly mated Glomerular Filtration Rate [...] actual GFR. Performed By: #### 2 4323-8 ####[facility] LABCLIA [id number] [place] [address] Glucose [Mass/Vol] 93 mg/dL Normal 74-99 [facility] Comment on above: Order Comment: Speci men Type: BLOOD SPECIMENOrdering Facility: [facility] Address: [address] [place], [place] [address] Result Comment: The [place] Diabetes Association (ADA) provides guidance for cutoff [...] Standards of Medical Care in Diabetes 2016, [place] [employer]. Diabetes Care. 2016.39(Suppl 1). Performed By: #### 2 4323-8 ####[facility] LABCLIA [id number] [place] [address] Potassium [Moles/Vol] 4.5 mmol/L Normal 3.7-5.1 [facility] Comment on above: Order Comment: Speci men Type: BLOOD SPECIMENOrdering Facility: [facility] Address: [address] [place] [address] Performed By: #### 2 4323-8 ####[facility] LABCLIA [id number] [place] [address] Protein [Mass/Vol] 7.9 g/dL Normal 6.3-8.0 [facility] Comment on above: Order Comment: Speci men Type: BLOOD SPECIMENOrdering Facility: [facility] Address: [address] [place], [place] [address] Performed By: #### 2 4323-8 ####[facility] LABCLIA [id number] [place] [address] Sodium [Moles/Vol] 131 mmol/L Low 136-144 [facility] Comment on above: Order Comment: Speci men Type: BLOOD SPECIMENOrdering Facility: [facility] Address: [address] [place] [address] Performed By: #### 2 4323-8 ####[facility] LABCLIA [id number] [place] [address] Urea nitrogen [Mass/Vol] 17 mg/dL Normal 9-24 [facility] Comment on above: Order Comment: Speci men Type: BLOOD SPECIMENOrdering Facility: [facility] Address: [address] [place] [address] Performed By: #### 2 4323-8 ####[facility] LABCLIA [id number] [place] [address] CNNURSEon 01-23-2025 CNNURSE Normal [facility] CNOVon 01-23-2025 CNOV Normal [facility] CNOVSPon 01-23-2025 CNOVSP Normal [facility] CNNURSEon 01-22-2025 CNNURSE Normal [facility] Population Healthon 01-23-20 Population Health Population Health Case Information Case Priority: None Programs: -- 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 Referral Reason: Care coordination Case Type: Transition Care Management Risk Score: -- Case Status: Enrolled (January 22, 2025) Date Assigned: January 22, 2025 Assigned By: Gordo Humphries Date Enrolled: January 22, 2025 Assigned Primary Personnel: Gordo Humphries Assigned Secondary Personnel: -- Case Physician: Dennis KILN HEAD HOUSE OPERATOR, Carlos L Problems Ongoing Arthritis BMI 27.0-27.9,adult BPH with urinary obstruction Encounter to establish care Fever Flank pain Former smoker Gout Head injury History of kidney stones Hospital discharge follow-up 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 [...] reconciliation will need to be completed at [facility]. Patient states he is 'not too bad.' States he is taking his medications. Notes his breathing 'is a little tough,' but that is on- going. He is using his IS provided to him. He is drinking good. Notes his appetite is getting better, he is drinking protein shakes too. Denies bowel or urinary issues. Patient has follow up with his preparole counseling aide tomorrow 02/09/25 and appointment with Palliative Care [...] Created By: Gordo Humphries Normal [facility] CNNURSEon 01-19-2025 CNNURSE Normal [facility] Basic Metabolic Panelon Anion gap [Moles/Vol] 14.5 mmol/L Normal 6.0-15.0 [facility] Comment on above: Performed By: #### M G, HS TROP, DDIMER, TSH3, CMP, BNP, CBC, [id number], PTT, PT #### [facility] [address] Calcium [Mass/Vol] 9.0 mg/dL Normal 8.6-10.3 [facility] Comment on above: Performed By: #### M G, HS TROP, DDIMER, TSH3, CMP, BNP, CBC, [id number], PTT, PT #### [address] Chloride [Moles/Vol] 102 mmol/L Normal 98-107 [facility] Comment on above: Performed By: #### M G, HS TROP, DDIMER, TSH3, CMP, BNP, CBC, [id number], PTT, PT #### [address] CO2 [Moles/Vol] 20.7 mmol/L Low 21.0-31.0 [facility] Comment on above: Performed By: #### M G, HS TROP, DDIMER, TSH3, CMP, BNP, CBC, [id number], PTT, PT #### [address] Creatinine [Mass/Vol] 0.67 mg/dL Low 0.70-1.30 [facility] Comment on above: Performed By: #### M G, HS TROP, DDIMER, TSH3, CMP, BNP, CBC, [id number], PTT, PT #### [address] Creatinine Clr Calc Pharmacy 109.18 Normal [facility] Comment on above: Result Comment: PERF ORMED BY: [place] [address] PATHOLOGIST SEARCH ENGINE OPTIMIZATION STRATEGIST KELVIN HOLMAN M.D. Performed By: #### M G, HS TROP, DDIMER, TSH3, CMP, BNP, CBC, [id number], PTT, PT #### [place] [address] [place] GFR/1.73 sq M.predicted MDRD (S/P/Bld) [Vol rate/Area] mL/min/{1.73_m2} Normal [facility] Comment on above: Performed By: #### M G, HS TROP, DDIMER, TSH3, CMP, BNP, CBC, [id number], PTT, PT #### [facility] [address] Glucose [Mass/Vol] 83 mg/dL Normal 70-100 [facility] Comment on above: Result Comment: [place] Glucose Reference Range is dependent on time and content of last meal. Glucose of more than 200 mg/dL in a nonstressed, ambulatory subject supports the diagnosis of Diabetes Mellitus. ADA recommended reference range Performed By: #### M G, HS TROP, DDIMER, TSH3, CMP, BNP, CBC, [id number], PTT, PT #### [facility] [address] Potassium [Moles/Vol] 4.2 mmol/L Normal 3.5-5.1 [facility] Comment on above: Performed By: #### M G, HS TROP, DDIMER, TSH3, CMP, BNP, CBC, [id number], PTT, PT #### [facility] [address] Sodium [Moles/Vol] 133 mmol/L Low 136-145 [facility] Comment on above: Performed By: #### M G, HS TROP, DDIMER, TSH3, CMP, BNP, CBC, [id number], PTT, PT #### [facility] [address] Urea nitrogen [Mass/Vol] 17 mg/dL Normal 7-25 [facility] Comment on above: Performed By: #### M G, HS TROP, DDIMER, TSH3, CMP, BNP, CBC, [id number], PTT, PT #### [facility] [address] [place] [address] [place] CNNURSEon 01-18-2025 CNNURSE Normal [facility] CNOVon 01-18-2025 CNOV Normal [facility] CNOVSPon 01-18-2025 CNOVSP Normal [facility] CNPNon 01-18-2025 CNPN Normal [facility] Mcleod Diff and CBCon 01-18-2025 Anisocytosis Ql (Bld) Slight Normal [facility] Comment on above: Performed By: #### M G, HS TROP, DDIMER, TSH3, CMP, BNP, CBC, [id number], PTT, PT #### [address] Band form neutrophils/100 WBC (Bld) 6 % High 0-5 [facility] Comment on above: Performed By: #### M G, HS TROP, DDIMER, TSH3, CMP, BNP, CBC, [id number], PTT, PT #### [address] Eosinophils/100 WBC (Bld) 6 % High 1-3 [facility] Comment on above: Performed By: #### M G, HS TROP, DDIMER, TSH3, CMP, BNP, CBC, [id number], PTT, PT #### [address] Erythrocyte distribution width (RBC) [Ratio] 16.0 % High 12.0-14.8 [facility] Comment on above: Performed By: #### M G, HS TROP, DDIMER, TSH3, CMP, BNP, CBC, [id number], PTT, PT #### [address] Giant Platelet Tally 3 /100{WBC} Normal [facility] Comment on above: Performed By: #### M G, HS TROP, DDIMER, TSH3, CMP, BNP, CBC, [id number], PTT, PT #### [address] Hematocrit (Bld) [Volume fraction] 25.7 % Low 38.8-50.0 [facility] Comment on above: Performed By: #### M G, HS TROP, DDIMER, TSH3, CMP, BNP, CBC, [id number], PTT, PT #### [place] [address] [place] Hemoglobin (Bld) [Mass/Vol] 8.5 g/dL Low 13.0-17.0 [facility] Comment on above: Performed By: #### M G, HS TROP, DDIMER, TSH3, CMP, BNP, CBC, [id number], PTT, PT #### [address] Hypochromasia Slight Normal [facility] Comment on above: Performed By: #### M G, HS TROP, DDIMER, TSH3, CMP, BNP, CBC, [id number], PTT, PT #### [address] Lymphocytes/100 WBC (Bld) 15 % Low 18-42 [facility] Comment on above: Performed By: #### M G, HS TROP, DDIMER, TSH3, CMP, BNP, CBC, [id number], PTT, PT #### [address] MCH (RBC) [Entitic mass] 26.4 pg Low 27.5-35.2 [facility] Comment on above: Performed By: #### M G, HS TROP, DDIMER, TSH3, CMP, BNP, CBC, [id number], PTT, PT #### [address] MCV (RBC) [Entitic vol] 80.1 fL Low 83.5-101 [facility] Comment on above: Performed By: #### M G, HS TROP, DDIMER, TSH3, CMP, BNP, CBC, [id number], PTT, PT #### [address] Mean Corpuscular HGB Conc 33.0 g/dL Normal 32.5-35.6 [facility] Comment on above: Performed By: #### M G, HS TROP, DDIMER, TSH3, CMP, BNP, CBC, [id number], PTT, PT #### [address] Microcytosis Slight Normal [facility] Comment on above: Performed By: #### M G, HS TROP, DDIMER, TSH3, CMP, BNP, CBC, [id number], PTT, PT #### [address] Monocytes/100 WBC (Bld) 1 % Low 2-11 [facility] Comment on above: Performed By: #### M G, HS TROP, DDIMER, TSH3, CMP, BNP, CBC, [id number], PTT, PT #### [address] Ovalocytes Slight Normal [facility] Comment on above: Performed By: #### M G, HS TROP, DDIMER, TSH3, CMP, BNP, CBC, [id number], PTT, PT #### [address] Platelet Estimate Normal Normal Normal [facility] Comment on above: Performed By: #### M G, HS TROP, DDIMER, TSH3, CMP, BNP, CBC, [id number], PTT, PT #### [address] Platelet mean volume (Bld) [Entitic vol] 8.2 fL Normal 6.6-10.1 [facility] Comment on above: Result Comment: PERF ORMED BY: [place] [address] PATHOLOGIST SEARCH ENGINE OPTIMIZATION STRATEGIST KELVIN HOLMAN M.D. Performed By: #### M G, HS TROP, DDIMER, TSH3, CMP, BNP, CBC, [id number], PTT, PT #### [place] [id number] [facility] Platelet Morphology Normal Normal Normal [facility] Comment on above: Result Comment: PERF ORMED BY: [place] [address] PATHOLOGIST SEARCH ENGINE OPTIMIZATION STRATEGIST KELVIN HOLMAN M.D. Performed By: #### M G, HS TROP, DDIMER, TSH3, CMP, BNP, CBC, [id number], PTT, PT #### [address] Platelets (Bld) [#/Vol] 150 10*3/uL Normal 150-450 [facility] Comment on above: Performed By: #### M G, HS TROP, DDIMER, TSH3, CMP, BNP, CBC, [id number], PTT, PT #### [address] Poikilocytosis Slight Normal [facility] Comment on above: Performed By: #### M G, HS TROP, DDIMER, TSH3, CMP, BNP, CBC, [id number], PTT, PT #### [address] Polychromasia Slight Normal [facility] Comment on above: Performed By: #### M G, HS TROP, DDIMER, TSH3, CMP, BNP, CBC, [id number], PTT, PT #### [address] RBC (Bld) [#/Vol] 3.22 10*6/uL Low 3.90-5.60 [facility] Comment on above: Performed By: #### M G, HS TROP, DDIMER, TSH3, CMP, BNP, CBC, [id number], PTT, PT #### [address] Segmented neutrophils/100 WBC (Bld) 73 % High 50-70 [facility] Comment on above: Performed By: #### M G, HS TROP, DDIMER, TSH3, CMP, BNP, CBC, [id number], PTT, PT #### [address] WBC (Bld) [#/Vol] 4.7 10*3/uL Normal 4.1-10.5 [facility] Comment on above: Performed By: #### M G, HS TROP, DDIMER, TSH3, CMP, BNP, CBC, [id number], PTT, PT #### [address] White Blood Count 4.7 [CFU]/mL Normal 4.1-10.5 [facility] Comment on above: Performed By: #### M G, HS TROP, DDIMER, TSH3, CMP, BNP, CBC, [id number], PTT, PT #### [address] Basic Metabolic Panelon 08-0 Anion gap [Moles/Vol] 14.4 mmol/L Normal 6.0-15.0 [facility] Comment on above: Performed By: #### M G, HS TROP, DDIMER, TSH3, CMP, BNP, CBC, [id number], PTT, PT #### [address] Calcium [Mass/Vol] 8.5 mg/dL Low 8.6-10.3 [facility] Comment on above: Performed By: #### M G, HS TROP, DDIMER, TSH3, CMP, BNP, CBC, [id number], PTT, PT #### [address] Chloride [Moles/Vol] 102 mmol/L Normal 98-107 [facility] Comment on above: Performed By: #### M G, HS TROP, DDIMER, TSH3, CMP, BNP, CBC, [id number], PTT, PT #### [address] CO2 [Moles/Vol] 20.7 mmol/L Low 21.0-31.0 [facility] Comment on above: Performed By: #### M G, HS TROP, DDIMER, TSH3, CMP, BNP, CBC, [id number], PTT, PT #### [address] Creatinine [Mass/Vol] 0.75 mg/dL Normal 0.70-1.30 [facility] Comment on above: Performed By: #### M G, HS TROP, DDIMER, TSH3, CMP, BNP, CBC, [id number], PTT, PT #### [address] Creatinine Clr Calc Pharmacy 97.53 Normal [facility] Comment on above: Result Comment: PERF ORMED BY: [place] [address] PATHOLOGIST SEARCH ENGINE OPTIMIZATION STRATEGIST KELVIN HOLMAN M.D. Performed By: #### M G, HS TROP, DDIMER, TSH3, CMP, BNP, CBC, [id number], PTT, PT #### [address] GFR/1.73 sq M.predicted MDRD (S/P/Bld) [Vol rate/Area] mL/min/{1.73_m2} Normal [facility] Comment on above: Performed By: #### M G, HS TROP, DDIMER, TSH3, CMP, BNP, CBC, [id number], PTT, PT #### [address] Glucose [Mass/Vol] 85 mg/dL Normal 70-100 [facility] Comment on above: Result Comment: [facility] Glucose Reference Range is dependent on time and content of last meal. Glucose of more than 200 mg/dL in a nonstressed, ambulatory subject supports the diagnosis of Diabetes Mellitus. ADA recommended reference range Performed By: #### M G, HS TROP, DDIMER, TSH3, CMP, BNP, CBC, [id number], PTT, PT #### [address] Potassium [Moles/Vol] 4.1 mmol/L Normal 3.5-5.1 [facility] Comment on above: Performed By: #### M G, HS TROP, DDIMER, TSH3, CMP, BNP, CBC, [id number], PTT, PT #### [address] Sodium [Moles/Vol] 133 mmol/L Low 136-145 [facility] Comment on above: Performed By: #### M G, HS TROP, DDIMER, TSH3, CMP, BNP, CBC, [id number], PTT, PT #### [address] Urea nitrogen [Mass/Vol] 18 mg/dL Normal 7-25 [facility] Comment on above: Performed By: #### M G, HS TROP, DDIMER, TSH3, CMP, BNP, CBC, [id number], PTT, PT #### [address] Scan and CBCon 01-17-2025 Acanthocytes Slight Normal [facility] Comment on above: Performed By: #### M G, HS TROP, DDIMER, TSH3, CMP, BNP, CBC, [id number], PTT, PT #### [address] Anisocytosis Ql (Bld) Slight Normal [facility] Comment on above: Performed By: #### M G, HS TROP, DDIMER, TSH3, CMP, BNP, CBC, [id number], PTT, PT #### [address] Basophils (Bld) [#/Vol] 0.0 10*3/uL Normal 0.0-0.2 [facility] Comment on above: Performed By: #### M G, HS TROP, DDIMER, TSH3, CMP, BNP, CBC, [id number], PTT, PT #### [address] Basophils/100 WBC (Bld) 0.4 % Normal . [facility] Comment on above: Performed By: #### M G, HS TROP, DDIMER, TSH3, CMP, BNP, CBC, [id number], PTT, PT #### [address] Eosinophils (Bld) [#/Vol] 0.1 10*3/uL Normal 0.0-0.45 [facility] Comment on above: Performed By: #### M G, HS TROP, DDIMER, TSH3, CMP, BNP, CBC, [id number], PTT, PT #### [address] [place] [address] [place] Eosinophils/100 WBC (Bld) 1.4 % Normal . [facility] Comment on above: Performed By: #### M G, HS TROP, DDIMER, TSH3, CMP, BNP, CBC, [id number], PTT, PT #### [address] Erythrocyte distribution width (RBC) [Ratio] 16.1 % High 12.0-14.8 [facility] Comment on above: Performed By: #### M G, HS TROP, DDIMER, TSH3, CMP, BNP, CBC, [id number], PTT, PT #### [address] Hematocrit (Bld) [Volume fraction] 28.7 % Low 38.8-50.0 [facility] Comment on above: Performed By: #### M G, HS TROP, DDIMER, TSH3, CMP, BNP, CBC, [id number], PTT, PT #### [address] Hemoglobin (Bld) [Mass/Vol] 9.3 g/dL Low 13.0-17.0 [facility] Comment on above: Performed By: #### M G, HS TROP, DDIMER, TSH3, CMP, BNP, CBC, [id number], PTT, PT #### [address] Lymphocytes (Bld) [#/Vol] 0.9 10*3/uL Low 1.00-4.8 [facility] Comment on above: Performed By: #### M G, HS TROP, DDIMER, TSH3, CMP, BNP, CBC, [id number], PTT, PT #### [address] Lymphocytes/100 WBC (Bld) 11.3 % Normal . [facility] Comment on above: Performed By: #### M G, HS TROP, DDIMER, TSH3, CMP, BNP, CBC, [id number], PTT, PT #### [address] MCH (RBC) [Entitic mass] 26.2 pg Low 27.5-35.2 [facility] Comment on above: Performed By: #### M G, HS TROP, DDIMER, TSH3, CMP, BNP, CBC, [id number], PTT, PT #### [address] MCV (RBC) [Entitic vol] 80.8 fL Low 83.5-101 [facility] Comment on above: Performed By: #### M G, HS TROP, DDIMER, TSH3, CMP, BNP, CBC, [id number], PTT, PT #### [address] Mean Corpuscular HGB Conc 32.5 g/dL Normal 32.5-35.6 [facility] Comment on above: Performed By: #### M G, HS TROP, DDIMER, TSH3, CMP, BNP, CBC, [id number], PTT, PT #### [address] Microcytosis Slight Normal [facility] Comment on above: Performed By: #### M G, HS TROP, DDIMER, TSH3, CMP, BNP, CBC, [id number], PTT, PT #### [address] Monocytes (Bld) [#/Vol] 0.0 10*3/uL Normal 0.0-0.8 [facility] Comment on above: Performed By: #### M G, HS TROP, DDIMER, TSH3, CMP, BNP, CBC, [id number], PTT, PT #### [address] Monocytes/100 WBC (Bld) 0.6 % Normal . [facility] Comment on above: Performed By: #### M G, HS TROP, DDIMER, TSH3, CMP, BNP, CBC, [id number], PTT, PT #### [place] [address] [place] Neutrophils (Bld) [#/Vol] 6.5 10*3/uL Normal 1.8-7.7 [facility] Comment on above: Performed By: #### M G, HS TROP, DDIMER, TSH3, CMP, BNP, CBC, [id number], PTT, PT #### [address] Neutrophils/100 WBC (Bld) 86.3 % Normal . [facility] Comment on above: Performed By: #### M G, HS TROP, DDIMER, TSH3, CMP, BNP, CBC, [id number], PTT, PT #### [address] NRBC% 0.1 /100{WBC} Normal 0-0.5 [facility] Comment on above: Performed By: #### M G, HS TROP, DDIMER, TSH3, CMP, BNP, CBC, [id number], PTT, PT #### [address] Ovalocytes Slight Normal [facility] Comment on above: Performed By: #### M G, HS TROP, DDIMER, TSH3, CMP, BNP, CBC, [id number], PTT, PT #### [address] Platelet Estimate Normal Normal Normal [facility] Comment on above: Performed By: #### M G, HS TROP, DDIMER, TSH3, CMP, BNP, CBC, [id number], PTT, PT #### [address] Platelet mean volume (Bld) [Entitic vol] 7.6 fL Normal 6.6-10.1 [facility] Comment on above: Performed By: #### M G, HS TROP, DDIMER, TSH3, CMP, BNP, CBC, [id number], PTT, PT #### [address] Platelet Morphology Normal Normal Normal [facility] Comment on above: Result Comment: PERF ORMED BY: [place] [address] PATHOLOGIST SEARCH ENGINE OPTIMIZATION STRATEGIST KELVIN HOLMAN M.D. Performed By: #### M G, HS TROP, DDIMER, TSH3, CMP, BNP, CBC, [id number], PTT, PT #### [address] Platelets (Bld) [#/Vol] 173 10*3/uL Normal 150-450 [facility] Comment on above: Performed By: #### M G, HS TROP, DDIMER, TSH3, CMP, BNP, CBC, [id number], PTT, PT #### [address] Poikilocytosis Slight Normal [facility] Comment on above: Performed By: #### M G, HS TROP, DDIMER, TSH3, CMP, BNP, CBC, [id number], PTT, PT #### [address] Polychromasia Slight Normal [facility] Comment on above: Performed By: #### M G, HS TROP, DDIMER, TSH3, CMP, BNP, CBC, [id number], PTT, PT #### [address] RBC (Bld) [#/Vol] 3.55 10*6/uL Low 3.90-5.60 [facility] Comment on above: Performed By: #### M G, HS TROP, DDIMER, TSH3, CMP, BNP, CBC, [id number], PTT, PT #### [address] Schistocytes Slight Normal [facility] Comment on above: Performed By: #### M G, HS TROP, DDIMER, TSH3, CMP, BNP, CBC, [id number], PTT, PT #### [address] WBC (Bld) [#/Vol] 7.6 10*3/uL Normal 4.1-10.5 [facility] Comment on above: Performed By: #### M G, HS TROP, DDIMER, TSH3, CMP, BNP, CBC, [id number], PTT, PT #### [address] White Blood Count 7.6 [CFU]/mL Normal 4.1-10.5 [facility] Comment on above: Performed By: #### M G, HS TROP, DDIMER, TSH3, CMP, BNP, CBC, [id number], PTT, PT #### [address] Basic Metabolic Panelon 08-0 -2024 Anion gap [Moles/Vol] 13.5 mmol/L Normal 6.0-15.0 [facility] Comment on above: Performed By: #### M G, HS TROP, DDIMER, TSH3, CMP, BNP, CBC, [id number], PTT, PT #### [address] Calcium [Mass/Vol] 8.1 mg/dL Low 8.6-10.3 [facility] Comment on above: Performed By: #### M G, HS TROP, DDIMER, TSH3, CMP, BNP, CBC, [id number], PTT, PT #### [address] Chloride [Moles/Vol] 102 mmol/L Normal 98-107 [facility] Comment on above: Performed By: #### M G, HS TROP, DDIMER, TSH3, CMP, BNP, CBC, [id number], PTT, PT #### [address] CO2 [Moles/Vol] 21.5 mmol/L Normal 21.0-31.0 [facility] Comment on above: Performed By: #### M G, HS TROP, DDIMER, TSH3, CMP, BNP, CBC, [id number], PTT, PT #### [address] Creatinine [Mass/Vol] 0.74 mg/dL Normal 0.70-1.30 [facility] Comment on above: Performed By: #### M G, HS TROP, DDIMER, TSH3, CMP, BNP, CBC, [id number], PTT, PT #### [facility] [address] Creatinine Clr Calc Pharmacy 106.94 Normal [facility] Comment on above: Performed By: #### M G, HS TROP, DDIMER, TSH3, CMP, BNP, CBC, [id number], PTT, PT #### [facility] [address] [place] [address] [place] GFR/1.73 sq M.predicted MDRD (S/P/Bld) [Vol rate/Area] mL/min/{1.73_m2} Normal [facility] Comment on above: Performed By: #### M G, HS TROP, DDIMER, TSH3, CMP, BNP, CBC, [id number], PTT, PT #### [facility] [address] Glucose [Mass/Vol] 90 mg/dL Normal 70-100 [facility] Comment on above: Result Comment: [facility] Glucose Reference Range is dependent on time and content of last meal. Glucose of more than 200 mg/dL in a nonstressed, ambulatory subject supports the diagnosis of Diabetes Mellitus. ADA recommended reference range Performed By: #### M G, HS TROP, DDIMER, TSH3, CMP, BNP, CBC, [id number], PTT, PT #### [facility] [address] Potassium [Moles/Vol] 4.0 mmol/L Normal 3.5-5.1 [facility] Comment on above: Performed By: #### M G, HS TROP, DDIMER, TSH3, CMP, BNP, CBC, [id number], PTT, PT #### [facility] [address] Sodium [Moles/Vol] 133 mmol/L Low 136-145 [facility] Comment on above: Performed By: #### M G, HS TROP, DDIMER, TSH3, CMP, BNP, CBC, [id number], PTT, PT #### [address] Urea nitrogen [Mass/Vol] 20 mg/dL Normal 7-25 [facility] Comment on above: Performed By: #### M G, HS TROP, DDIMER, TSH3, CMP, BNP, CBC, [id number], PTT, PT #### [address] Complete Blood Count Auto Di ffon 01-16-2025 Basophils (Bld) [#/Vol] 0.1 10*3/uL Normal 0.0-0.2 [facility] Comment on above: Result Comment: PERF ORMED BY: [place] [address] PATHOLOGIST SEARCH ENGINE OPTIMIZATION STRATEGIST KELVIN HOLMAN M.D. Performed By: #### M G, HS TROP, DDIMER, TSH3, CMP, BNP, CBC, [id number], PTT, PT #### [address] Basophils/100 WBC (Bld) 0.8 % Normal . [facility] Comment on above: Performed By: #### M G, HS TROP, DDIMER, TSH3, CMP, BNP, CBC, [id number], PTT, PT #### [address] Eosinophils (Bld) [#/Vol] 0.1 10*3/uL Normal 0.0-0.45 [facility] Comment on above: Performed By: #### M G, HS TROP, DDIMER, TSH3, CMP, BNP, CBC, [id number], PTT, PT #### [address] Eosinophils/100 WBC (Bld) 1.0 % Normal . [facility] Comment on above: Performed By: #### M G, HS TROP, DDIMER, TSH3, CMP, BNP, CBC, [id number], PTT, PT #### [address] Erythrocyte distribution width (RBC) [Ratio] 16.2 % High 12.0-14.8 [facility] Comment on above: Performed By: #### M G, HS TROP, DDIMER, TSH3, CMP, BNP, CBC, [id number], PTT, PT #### [address] Hematocrit (Bld) [Volume fraction] 26.1 % Low 38.8-50.0 [facility] Comment on above: Performed By: #### M G, HS TROP, DDIMER, TSH3, CMP, BNP, CBC, [id number], PTT, PT #### [address] Hemoglobin (Bld) [Mass/Vol] 8.6 g/dL Low 13.0-17.0 [facility] Comment on above: Performed By: #### M G, HS TROP, DDIMER, TSH3, CMP, BNP, CBC, [id number], PTT, PT #### [address] Lymphocytes (Bld) [#/Vol] 0.8 10*3/uL Low 1.00-4.8 [facility] Comment on above: Performed By: #### M G, HS TROP, DDIMER, TSH3, CMP, BNP, CBC, [id number], PTT, PT #### [address] Lymphocytes/100 WBC (Bld) 7.9 % Normal . [facility] Comment on above: Performed By: #### M G, HS TROP, DDIMER, TSH3, CMP, BNP, CBC, [id number], PTT, PT #### [address] MCH (RBC) [Entitic mass] 26.4 pg Low 27.5-35.2 [facility] Comment on above: Performed By: #### M G, HS TROP, DDIMER, TSH3, CMP, BNP, CBC, [id number], PTT, PT #### [address] MCV (RBC) [Entitic vol] 80.1 fL Low 83.5-101 [facility] Comment on above: Performed By: #### M G, HS TROP, DDIMER, TSH3, CMP, BNP, CBC, [id number], PTT, PT #### [address] Mean Corpuscular HGB Conc 33.0 g/dL Normal 32.5-35.6 [facility] Comment on above: Performed By: #### M G, HS TROP, DDIMER, TSH3, CMP, BNP, CBC, [id number], PTT, PT #### [address] Monocytes (Bld) [#/Vol] 0.0 10*3/uL Normal 0.0-0.8 [facility] Comment on above: Performed By: #### M G, HS TROP, DDIMER, TSH3, CMP, BNP, CBC, [id number], PTT, PT #### [address] Monocytes/100 WBC (Bld) 0.4 % Normal . [facility] Comment on above: Performed By: #### M G, HS TROP, DDIMER, TSH3, CMP, BNP, CBC, [id number], PTT, PT #### [address] Neutrophils (Bld) [#/Vol] 9.4 10*3/uL High 1.8-7.7 [facility] Comment on above: Performed By: #### M G, HS TROP, DDIMER, TSH3, CMP, BNP, CBC, [id number], PTT, PT #### [address] Neutrophils/100 WBC (Bld) 89.9 % Normal . [facility] Comment on above: Performed By: #### M G, HS TROP, DDIMER, TSH3, CMP, BNP, CBC, [id number], PTT, PT #### [address] NRBC% 0.1 /100{WBC} Normal 0-0.5 [facility] Comment on above: Performed By: #### M G, HS TROP, DDIMER, TSH3, CMP, BNP, CBC, [id number], PTT, PT #### [address] Platelet mean volume (Bld) [Entitic vol] 7.5 fL Normal 6.6-10.1 [facility] Comment on above: Performed By: #### M G, HS TROP, DDIMER, TSH3, CMP, BNP, CBC, [id number], PTT, PT #### [address] Platelets (Bld) [#/Vol] 185 10*3/uL Normal 150-450 [facility] Comment on above: Performed By: #### M G, HS TROP, DDIMER, TSH3, CMP, BNP, CBC, [id number], PTT, PT #### [address] RBC (Bld) [#/Vol] 3.26 10*6/uL Low 3.90-5.60 [facility] Comment on above: Performed By: #### M G, HS TROP, DDIMER, TSH3, CMP, BNP, CBC, [id number], PTT, PT #### [address] WBC (Bld) [#/Vol] 10.4 10*3/uL Normal 4.1-10.5 [facility] Comment on above: Performed By: #### M G, HS TROP, DDIMER, TSH3, CMP, BNP, CBC, [id number], PTT, PT #### [address] White Blood Count 10.4 [CFU]/mL Normal 4.1-10.5 [facility] Comment on above: Performed By: #### M G, HS TROP, DDIMER, TSH3, CMP, BNP, CBC, [id number], PTT, PT #### [facility] [address] [place] [id number] [facility] echo transthoracicon [facility] echo transthoracic [facility] Main [place] [address] [place] [address] Echocardiogram Signed Patient: Jatin Koch II MR#: [id number] : 1960 Acct:[id number] Age/Sex: 64 / M ADM Date: 01/15/25 Loc: Room: [address] [place] [address] Type: ADM IN Attending Dr: Hayes Olivarez DO Ordering Provider: Librado Sarkar MD Date of Service: 01/16/2511/05/1046 [facility] transthoracic: afib vs SR Copies to: [...] Elma Jackson MD 01/16/25 1526 Normal [facility] Lipid Panelon 01-16-2025 Cholesterol [Mass/Vol] 123 mg/dL Low 140-200 [facility] Comment on above: Result Comment: Chol less than 200 mg/dl low risk Chol 201-239 mg/dl borderline risk Chol 240 mg/dl and greater high risk Performed By: #### M G, HS TROP, DDIMER, TSH3, CMP, BNP, CBC, [id number], PTT, PT #### [facility] [address] Cholesterol in HDL [Mass/Vol] 30 mg/dL Normal 23-92 [facility] Comment on above: Result Comment: HDL CHOL ATP-III CLASSIFICATION Cardiovascular Risk HDL > or equal to 60 mg/dL LOW HDL < 40 mg/dL HIGH Performed By: #### M G, HS TROP, DDIMER, TSH3, CMP, BNP, CBC, [id number], PTT, PT #### [address] Cholesterol.total/Kareen sterol in HDL [Mass ratio] 4.1 {ratio} Normal <5.0 [facility] Comment on above: Result Comment: PERF ORMED BY: [place] [address] PATHOLOGIST SEARCH ENGINE OPTIMIZATION STRATEGIST KELVIN HOLMAN M.D. Performed By: #### M G, HS TROP, DDIMER, TSH3, CMP, BNP, CBC, [id number], PTT, PT #### [address] LDL Cholesterol,Calculated 76 mg/dL Normal 0-100 [facility] Comment on above: Result Comment: LDL ATP III CLASSIFICATION LDL less than 100 mg/dL Optimal LDL 100-129 mg/dL Near or above optimal LDL 130-159 mg/dL Borderline high LDL 160-189 mg/dL High LDL greater than 189 mg/dL Very high Performed By: #### M G, HS TROP, DDIMER, TSH3, CMP, BNP, CBC, [id number], PTT, PT #### [address] Triglyceride w/Reflex 87 mg/dL Normal 0-149 [facility] Comment on above: Result Comment: TRIG ATP III CLASSIFICATION TRIG less than 150 mg/dL Normal TRIG 150-199 mg/dL Borderline high TRIG 200-500 mg/dL High TRIG greater than 500 mg/dL Very high Standard traceable to the Center for Disease Conrtrol and Prevention (CDC) test method. Performed By: #### M G, HS TROP, DDIMER, TSH3, CMP, BNP, CBC, [id number], PTT, PT #### [address] VLDL CHOLESTEROL 17 mg/dL Normal [facility] Comment on above: Performed By: #### M G, HS TROP, DDIMER, TSH3, CMP, BNP, CBC, [id number], PTT, PT #### [address] Magnesiumon 01-16-2025 Magnesium [Mass/Vol] 1.7 mg/dL Low 1.9-2.7 [facility] Comment on above: Performed By: #### M G, HS TROP, DDIMER, TSH3, CMP, BNP, CBC, [id number], PTT, PT #### [address] Anisocytosis [Presence] in B lood by Light microscopyOrdered By: Angelica Lalwer on 01-15-2025 Anisocytosis Ql (Bld) Slight Normal [facility] Comment on above: Order Comment: PLATE LET CLUMPS/ NOTIFIED ARTIE Performed By: #### M G, HS TROP, DDIMER, TSH3, CMP, BNP, CBC, [id number], PTT, PT #### [address] BNP ser/plasOrdered By: Mikel Lawler on 01-15-2025 Natriuretic peptide B (Bld) [Mass/Vol] 50.0 pg/mL Normal 5-100 [facility] Comment on above: Result Comment: PERF ORMED BY: [place] [address] PATHOLOGIST SEARCH ENGINE OPTIMIZATION STRATEGIST KELVIN HOLMAN M.D. Performed By: #### M G, HS TROP, DDIMER, TSH3, CMP, BNP, CBC, [id number], PTT, PT #### [address] Basic Metabolic Panelon 08-0 Anion gap [Moles/Vol] Not performed Normal 6.0-15.0 [facility] Comment on above: Performed By: #### M G, HS TROP, DDIMER, TSH3, CMP, BNP, CBC, [id number], PTT, PT #### [address] Creatinine Clr Calc Pharmacy 83.35 Normal [facility] Comment on above: Performed By: #### M G, HS TROP, DDIMER, TSH3, CMP, BNP, CBC, [id number], PTT, PT #### [address] GFR/1.73 sq M.predicted MDRD (S/P/Bld) [Vol rate/Area] mL/min/{1.73_m2} Normal [facility] Comment on above: Performed By: #### M G, HS TROP, DDIMER, TSH3, CMP, BNP, CBC, [id number], PTT, PT #### [address] Potassium Normal 3.5-5.1 [facility] Comment on above: Result Comment: Spec imen hemolyzed, redraw requested Performed By: #### M G, HS TROP, DDIMER, TSH3, CMP, BNP, CBC, [id number], PTT, PT #### [address] Basophils [#/volume] in Bloo d by Automated countOrdered By: Angelica Lawler on 01-15-2025 Basophils (Bld) [#/Vol] 0.1 10*3/uL Normal 0.0-0.2 [facility] Comment on above: Order Comment: PLATE LET CLUMPS/ NOTIFIED ARTIE Performed By: #### M G, HS TROP, DDIMER, TSH3, CMP, BNP, CBC, [id number], PTT, PT #### [address] Basophils/100 leukocytes in Blood by Automated countOrdered By: Angelica Lawler on 01-15-2025 Basophils/100 WBC (Bld) 0.3 % Normal . [facility] Comment on above: Order Comment: PLATE LET CLUMPS/ NOTIFIED ARTIE Performed By: #### M G, HS TROP, DDIMER, TSH3, CMP, BNP, CBC, [id number], PTT, PT #### [address] Blood Cultureon 01-15-2025 Bacteria identified Cx Nom (Bld) NO GROWTH 5 DAYS PERFORMED BY: [facility] [address] [place] [address] PATHOLOGIST SEARCH ENGINE OPTIMIZATION STRATEGIST KELVIN HOLMAN M.D. Normal [facility] Comment on above: Performed By: #### M G, HS TROP, DDIMER, TSH3, CMP, BNP, CBC, [id number], PTT, PT #### [facility] [address] Bacteria identified Cx Nom (Bld) NO GROWTH 5 DAYS PERFORMED BY: [facility] [address] [place] [address] PATHOLOGIST SEARCH ENGINE OPTIMIZATION STRATEGIST KELVIN HOLMAN M.D. Normal [facility] Comment on above: Performed By: #### M G, HS TROP, DDIMER, TSH3, CMP, BNP, CBC, [id number], PTT, PT #### [facility] [address] CBC W Auto Differential pane l (Bld)on 01-15-2025 Anisocytosis Ql (Bld) Present Normal [facility] Comment on above: Order Comment: Speci men Type: BLOOD SPECIMENOrdering Facility: [facility] Address: [address] [place] [address] Performed By: #### 5 7021-8 ####[facility] LABCLIA [id number] [address] LABCLIA [id number] [place] [address] [place] Basophils (Bld) [#/Vol] 0.00 10*3/uL Normal <0.11 [facility] Comment on above: Order Comment: Speci men Type: BLOOD SPECIMENOrdering Facility: [facility] Address: [address] [place] [address] Performed By: #### 5 7021-8 ####[facility] LABCLIA [id number] [address] LABCLIA [id number] [place] [address] [place] Basophils/100 WBC (Bld) 0.0 % Normal [facility] Comment on above: Order Comment: Speci men Type: BLOOD SPECIMENOrdering Facility: [facility] Address: [address] [place] [address] Performed By: #### 5 7021-8 ####[facility] LABCLIA [id number] [address] LABCLIA [id number] [place] [address] [place] Differential cell count method Nom (Bld) Manual Normal [facility] Comment on above: Order Comment: Speci men Type: BLOOD SPECIMENOrdering Facility: [facility] Address: [address] [place] [address] Performed By: #### 5 7021-8 ####[facility] LABCLIA [id number] [address] LABCLIA [id number] [place] [address] [place] Eosinophils (Bld) [#/Vol] 0.19 10*3/uL Normal <0.46 [facility] Comment on above: Order Comment: Speci men Type: BLOOD SPECIMENOrdering Facility: [facility] Address: [address] [place] [address] Performed By: #### 5 7021-8 ####[facility] LABCLIA [id number] [address] LABCLIA [id number] [place] [address] [place] Eosinophils/100 WBC (Bld) 0.9 % Normal [facility] Comment on above: Order Comment: Speci men Type: BLOOD SPECIMENOrdering Facility: [facility] Address: [address] [place] [address] Performed By: #### 5 7021-8 ####[facility] LABCLIA [id number] [place] [id number] LABCLIA [id number] [place] [id number] [place] Erythrocyte distribution width (RBC) [Ratio] 15.2 % High 11.5-15.0 [facility] Comment on above: Order Comment: Speci men Type: BLOOD SPECIMENOrdering Facility: [facility] Address: [address] [place] [address] Performed By: #### 5 7021-8 ####[facility] LABCLIA [id number] [address] LABCLIA [id number] [place] [address] [place] Hematocrit (Bld) [Volume fraction] 33.7 % Low 39.0-51.0 [facility] Comment on above: Order Comment: Speci men Type: BLOOD SPECIMENOrdering Facility: [facility] Address: [address] [place] [address] Performed By: #### 5 7021-8 ####[facility] LABCLIA [id number] [place] [id number] LABCLIA [id number] [place] [id number] [place] Hemoglobin (Bld) [Mass/Vol] 10.5 g/dL Low 13.0-17.0 [facility] Comment on above: Order Comment: Speci men Type: BLOOD SPECIMENOrdering Facility: [facility] Address: [address] [place], [place] [address] Performed By: #### 5 7021-8 ####[facility] LABCLIA [id number] [address] LABCLIA [id number] [place] [id number] [place] Lymphocytes (Bld) [#/Vol] 1.83 10*3/uL Normal 1.00-4.00 [facility] Comment on above: Order Comment: Speci men Type: BLOOD SPECIMENOrdering Facility: [facility] Address: [address] [place] [address] Performed By: #### 5 7021-8 ####[facility] LABCLIA [id number] [address] LABCLIA [id number] [place] [address] [place] Lymphocytes/100 WBC (Bld) 8.7 % Normal [facility] Comment on above: Order Comment: Speci men Type: BLOOD SPECIMENOrdering Facility: [facility] Address: [address] [place] [address] Performed By: #### 5 7021-8 ####[facility] LABCLIA [id number] [address] LABCLIA [id number] [place] [address] [place] MCH (RBC) [Entitic mass] 26.0 pg Normal 26.0-34.0 [facility] Comment on above: Order Comment: Speci men Type: BLOOD SPECIMENOrdering Facility: [facility] Address: [address] [place] [address] Performed By: #### 5 7021-8 ####[facility] LABCLIA [id number] [address] LABCLIA [id number] [place] [address] [place] MCHC (RBC) [Mass/Vol] 31.2 g/dL Normal 30.5-36.0 [facility] Comment on above: Order Comment: Speci men Type: BLOOD SPECIMENOrdering Facility: [facility] Address: [address] [place] [address] Performed By: #### 5 7021-8 ####[facility] LABCLIA [id number] [place] [id number] LABCLIA [id number] [place] [address] [place] MCV (RBC) [Entitic vol] 83.4 fL Normal 80.0-100.0 [facility] Comment on above: Order Comment: Speci men Type: BLOOD SPECIMENOrdering Facility: [facility] Address: [address] [place] [address] Performed By: #### 5 7021-8 ####[facility] LABCLIA [id number] [address] LABCLIA [id number] [place] [address] [place] Monocytes (Bld) [#/Vol] 0.00 10*3/uL Normal <0.87 [facility] Comment on above: Order Comment: Speci men Type: BLOOD SPECIMENOrdering Facility: [facility] Address: [address] [place] [address] Performed By: #### 5 7021-8 ####[facility] LABCLIA [id number] [place] [id number] LABCLIA [id number] [place] [address] [place] Monocytes/100 WBC (Bld) 0.0 % Normal [facility] Comment on above: Order Comment: Speci men Type: BLOOD SPECIMENOrdering Facility: [facility] Address: [address] [place] [address] Performed By: #### 5 7021-8 ####[facility] LABCLIA [id number] [address] LABCLIA [id number] [place] [id number] [place] Neutrophils (Bld) [#/Vol] 19.02 10*3/uL High 1.45-7.50 [facility] Comment on above: Order Comment: Speci men Type: BLOOD SPECIMENOrdering Facility: [facility] Address: [address] [place] [address] Performed By: #### 5 7021-8 ####[facility] LABCLIA [id number] [address] LABCLIA [id number] [place] [address] [place] Neutrophils/100 WBC (Bld) 90.4 % Normal [facility] Comment on above: Order Comment: Speci men Type: BLOOD SPECIMENOrdering Facility: [facility] Address: [address] [place] [address] Performed By: #### 5 7021-8 ####[facility] LABCLIA [id number] [address] LABCLIA [id number] [place] [address] [place] Nucleated RBC (Bld) [#/Vol] 0.19 10*3/uL High <0.01 [facility] Comment on above: Order Comment: Speci men Type: BLOOD SPECIMENOrdering Facility: [facility] Address: [address] [place] [address] Performed By: #### 5 7021-8 ####[facility] LABCLIA [id number] [address] LABCLIA [id number] [place] [address] [place] Nucleated RBC/100 WBC (Bld) [Ratio] 0.9 /100 WBC Normal [facility] Comment on above: Order Comment: Speci men Type: BLOOD SPECIMENOrdering Facility: [facility] Address: [address] [place] [address] Performed By: #### 5 7021-8 ####[facility] LABCLIA [id number] [facility], [place] [address]JRAVJNHAUMIDDLETOWN [facility]OSPITAL LABCLIA [id number] [facility] [address] [place] [address] [place] Ovalocytes LM Ql (Bld) Few Normal Cl [facility] Comment on above: Order Comment: Speci men Type: BLOOD SPECIMENOrdering Facility: [facility] Address: [address] [place] [address] Performed By: #### 5 7021-8 ####[facility] LABCLIA [id number] [facility], [facility]14574LUZBNDKLSMIDDLETOWN HOSPITAL LABCLIA [id number] [address] [address] [place] Platelet mean volume (Bld) [Entitic vol] 9.1 fL Normal 9.0-12.7 [facility] Comment on above: Order Comment: Speci men Type: BLOOD SPECIMENOrdering Facility: [facility] Address: [address] [place] [address] Performed By: #### 5 7021-8 ####[facility] LABCLIA [id number] [place] [id number] LABCLIA [id number] [address] [place] [address] [place] Platelets (Bld) [#/Vol] 286 10*3/uL Normal 150-400 [facility] Comment on above: Order Comment: Speci men Type: BLOOD SPECIMENOrdering Facility: [facility] Address: [address] [place] [address] Performed By: #### 5 7021-8 ####[facility] LABCLIA [id number] [place] [id number] LABCLIA [id number] [address] [place] [address] [place] Platelets Estimate (Bld) [#/Vol] Adequate Normal [facility] Comment on above: Order Comment: Speci men Type: BLOOD SPECIMENOrdering Facility: [facility] Address: [address] [place], [place] [address] Performed By: #### 5 7021-8 ####[facility] LABCLIA [id number] [place], [place] [address]NHZHNRFIWMIDDLETOWN HOSPITAL LABCLIA [id number] [address] [place] [address] [place] RBC (Bld) [#/Vol] 4.04 10*6/uL Low 4.20-6.00 [facility] Comment on above: Order Comment: Speci men Type: BLOOD SPECIMENOrdering Facility: [facility] Address: [address] [place] [address] Performed By: #### 5 7021-8 ####[facility] LABCLIA [id number] [place] [id number] LABCLIA [id number] [address], [facility]95 [place] RBC FRAGMENTS Few Abnormal None Seen [facility] Comment on above: Order Comment: Speci men Type: BLOOD SPECIMENOrdering Facility: [facility] Address: [address] [place] [address] Performed By: #### 5 7021-8 ####[facility] LABCLIA [id number] [place] [id number] LABCLIA [id number] [address] [place] [address] [place] RED CELL MORPH Reviewed: see result s of individual morphologies Normal [facility] Comment on above: Order Comment: Speci men Type: BLOOD SPECIMENOrdering Facility: [facility] Address: [address] [place] [address] Performed By: #### 5 7021-8 ####[facility] LABCLIA [id number] [place] [id number] LABCLIA [id number] [address] [address] [place] WBC (Bld) [#/Vol] 21.04 10*3/uL High 3.70-11.00 [facility] Comment on above: Order Comment: Speci men Type: BLOOD SPECIMENOrdering Facility: [facility] Address: [address] [place] [address] Performed By: #### 5 7021-8 ####[facility] LABCLIA [id number] [place], [place] [address]GREYFYHZJMIDDLETOWN HOSPITAL LABCLIA [id number] [place] [address] [place] CNOVSPon 01-15-2025 CNOVSP Normal [facility] CNPNon 01-15-2025 CNPN Normal [facility] CT angio chest PE protocolon 01-15-2025 CT angio chest PE protocol [facility] [address] [place] [address] CT Scan Report Signed Patient: Jatin Koch II MR#: [id number] : 1960 Acct:[id number] Age/Sex: 64 / M ADM Date: 01/15/25 Loc: ER Room: Type: [facility] ER Attending Dr: Copies to: Angelica Lawler [...] Lainez M.D. 01/15/2025 11:33 AM Dictation Location: [place] [address] Transcribed By: [facility] 01/15/25 1133 Dictated By: Jose Antonio Lainez II, MD 01/15/25 1124 Signed By: 01/15/25 1133 Normal [facility] Calcium [Mass/volume] in Ser um or PlasmaOrdered By: Angelica Lawler on 01-15-2025 Calcium [Mass/Vol] 8.5 mg/dL Low 8.6-10.3 [facility] Comment on above: Performed By: #### M G, HS TROP, DDIMER, TSH3, CMP, BNP, CBC, [id number], PTT, PT #### [facility] [address] [place] [id number] [facility] Carbon dioxide, total [Moles /volume] in Serum or PlasmaOrdered By: Angelica Lawler on 01-15-2025 CO2 [Moles/Vol] 21.6 mmol/L Normal 21.0-31.0 [facility] Comment on above: Performed By: #### M G, HS TROP, DDIMER, TSH3, CMP, BNP, CBC, [id number], PTT, PT #### [facility] [address] [place] [address] [place] Chloride [Moles/volume] in S karishma or PlasmaOrdered By: Angelica Lawler on 01-15-2025 Chloride [Moles/Vol] 99 mmol/L Normal 98-107 [facility] Comment on above: Performed By: #### M G, HS TROP, DDIMER, TSH3, CMP, BNP, CBC, [id number], PTT, PT #### [facility] [address] [place] [address] [place] Comprehensive metabolic 2000 panelon 01-15-2025 Albumin [Mass/Vol] 3.7 g/dL Low 3.9-4.9 [facility] Comment on above: Order Comment: Speci men Type: BLOOD SPECIMENOrdering Facility: [facility] Address: [address] [place] [address] Performed By: #### 2 4323-8, 09971-8 ####[facility] LABCLIA [id number] [place] [address] ALP [Catalytic activity/Vol] 59 U/L Normal 38-113 [facility] Comment on above: Order Comment: Speci men Type: BLOOD SPECIMENOrdering Facility: [facility] Address: [address] [place] [address] Performed By: #### 2 4323-8, ####[facility] LABCLIA [id number] [place] [address] ALT [Catalytic activity/Vol] 10 U/L Normal 10-54 [facility] Comment on above: Order Comment: Speci men Type: BLOOD SPECIMENOrdering Facility: [facility] Address: [address] [place] [address] Performed By: #### 2 4323-8, ####[facility] LABCLIA [id number] [place] [address] Anion gap [Moles/Vol] 15 mmol/L Normal 8-15 [facility] Comment on above: Order Comment: Speci men Type: BLOOD SPECIMENOrdering Facility: [facility] Address: [address] [place] [address] Performed By: #### 2 4323-8, ####[facility] LABCLIA [id number] [place] [address] AST [Catalytic activity/Vol] 9 U/L Low 14-40 [facility] Comment on above: Order Comment: Speci men Type: BLOOD SPECIMENOrdering Facility: [facility] Address: [address] [place] [address] Performed By: #### 2 4323-8, ####[facility] LABCLIA [id number] [place] [address] Bilirubin [Mass/Vol] 0.6 mg/dL Normal 0.2-1.3 [facility] Comment on above: Order Comment: Speci men Type: BLOOD SPECIMENOrdering Facility: [facility] Address: [address] [place] [address] Performed By: #### 2 4323-8, ####[facility] LABCLIA [id number] [place] [address] Calcium [Mass/Vol] 8.8 mg/dL Normal 8.5-10.2 [facility] Comment on above: Order Comment: Speci men Type: BLOOD SPECIMENOrdering Facility: [facility] Address: [address] [place], [place] [address] Performed By: #### 2 4323-8, ####[facility] LABCLIA [id number] [place] [address] Chloride [Moles/Vol] 97 mmol/L Low 98-107 [facility] Comment on above: Order Comment: Speci men Type: BLOOD SPECIMENOrdering Facility: [facility] Address: [address] [place], [place] [address] Performed By: #### 2 4323-8, ####[facility] LABCLIA [id number] [place] [address] CO2 [Moles/Vol] 19 mmol/L Low 22-30 [facility] Comment on above: Order Comment: Speci men Type: BLOOD SPECIMENOrdering Facility: [facility] Address: [address] [place], [place] [address] Performed By: #### 2 4323-8, ####[facility] LABCLIA [id number] [place] [address] Creatinine [Mass/Vol] 0.90 mg/dL Normal 0.73-1.22 [facility] Comment on above: Order Comment: Speci men Type: BLOOD SPECIMENOrdering Facility: [facility] Address: [address] [place], [place] [address] Performed By: #### 2 4323-8, ####[facility] LABCLIA [id number] [place] [address] eGFRcr SerPlBld CKD-EPI 2020 96 mL/min/1.73m??? Normal >=60 [facility] Comment on above: Order Comment: Ange hull Type: BLOOD SPECIMENOrdering Facility: [facility] Address: [address] [place] [address] Result Comment: Carly mated Glomerular Filtration Rate [...] actual GFR. Performed By: #### 2 4323-8, ####[facility] LABCLIA [id number] [place] [address] Glucose [Mass/Vol] 117 mg/dL High 74-99 [facility] Comment on above: Order Comment: Specamarilys hull Type: BLOOD SPECIMENOrdering Facility: [facility] Address: [address] [place] [address] Result Comment: The [place] [employer] (ADA) provides guidance for cutoff [...] Standards of Medical Care in Diabetes 2016, [place] [employer]. Diabetes Care. 2016.39(Suppl 1). Performed By: #### 2 4323-8, ####[facility] LABCLIA [id number] [place] [address] Potassium [Moles/Vol] 4.1 mmol/L Normal 3.7-5.1 [facility] Comment on above: Order Comment: Speci men Type: BLOOD SPECIMENOrdering Facility: [facility] Address: [address] [place] [address] Performed By: #### 2 4323-8, ####[facility] LABCLIA [id number] [place] [address] Protein [Mass/Vol] 7.5 g/dL Normal 6.3-8.0 [facility] Comment on above: Order Comment: Speci men Type: BLOOD SPECIMENOrdering Facility: [facility] Address: [address] [place] [address] Performed By: #### 2 4323-8, ####[facility] LABCLIA [id number] [place] [address] Sodium [Moles/Vol] 131 mmol/L Low 136-144 [facility] Comment on above: Order Comment: Speci men Type: BLOOD SPECIMENOrdering Facility: [facility] Address: [address] [place] [address] Performed By: #### 2 4323-8, ####[facility] LABCLIA [id number] [place] [address] Urea nitrogen [Mass/Vol] 22 mg/dL Normal 9-24 [facility] Comment on above: Order Comment: Speci men Type: BLOOD SPECIMENOrdering Facility: [facility] Address: [address] [place] [address] Performed By: #### 2 4323-8, ####[facility] LABCLIA [id number] [place] [address] Creatine kinase [Enzymatic a ctivity/volume] in Serum or PlasmaOrdered By: Angelica Lawler on 01-15-2025 CK [Catalytic activity/Vol] 23 U/L Low 30-223 [facility] Comment on above: Performed By: #### M G, HS TROP, DDIMER, TSH3, CMP, BNP, CBC, [id number], PTT, PT #### [facility] [address] [place] [id number] [facility] Creatinine [Mass/volume] in Serum or PlasmaOrdered By: Angelica Lawler on 01-15-2025 Creatinine [Mass/Vol] 0.95 mg/dL Normal 0.70-1.30 [facility] Comment on above: Performed By: #### M G, HS TROP, DDIMER, TSH3, CMP, BNP, CBC, [id number], PTT, PT #### [facility] [address] [place] [address] [facility] ECG 12 lead ECGon 01-15-2025 ECG 12 lead ECG [facility] Main [place] [address] [place] [address] Electrocardiograph Report Signed Patient: Jatin Koch II MR#: [id number] : 1960 Acct:[id number] Age/Sex: 64 / M ADM Date: 01/15/25 Loc: Room: [address] [place] [address] Type: ADM IN Attending Dr: Hayes Olivarez [...] 13:48, Atrial fibrillation has replaced Sinus rhythm Cwjrd-Rwyjtxxca-Wusxk is no longer present Confirmed by ANGELICA LAWLER DO ([id number]) on 01/15/2025 4:18:40 PM Referred By: Electronically Signed By: ANGELICA LAWLER DO Transcribed By: MUS Signed By Angelica Lawler DO 1618 Normal [facility] Eosinophils [#/volume] in Bl ood by Automated countOrdered By: Angelica Lawler on 01-15-2025 Eosinophils (Bld) [#/Vol] 0.1 10*3/uL Normal 0.0-0.45 [facility] Comment on above: Order Comment: PLATE LET CLUMPS/ NOTIFIED ARTIE Performed By: #### M G, HS TROP, DDIMER, TSH3, CMP, BNP, CBC, [id number], PTT, PT #### [facility] [address] Eosinophils/100 leukocytes i n Blood by Automated countOrdered By: Angelica Lawler on 01-15-2025 Eosinophils/100 WBC (Bld) 0.7 % Normal . [facility] Comment on above: Order Comment: PLATE LET CLUMPS/ NOTIFIED ARTIE Performed By: #### M G, HS TROP, DDIMER, TSH3, CMP, BNP, CBC, [id number], PTT, PT #### [facility] [address] Erythrocyte distribution wid th [Ratio] by Automated countOrdered By: Angelica Lawler on 01-15-2025 Erythrocyte distribution width (RBC) [Ratio] 16.5 % High 12.0-14.8 [facility] Comment on above: Order Comment: PLATE LET CLUMPS/ NOTIFIED ARTIE Performed By: #### M G, HS TROP, DDIMER, TSH3, CMP, BNP, CBC, [id number], PTT, PT #### [facility] [address] Erythrocyte morphology findi ng [Identifier] in BloodOrdered By: Angelica Lawler on 01-15-2025 RBC morphology finding Nom (Bld) N/A [facility] Erythrocytes [#/volume] in B lood by Automated countOrdered By: Angelica Lawler on 01-15-2025 RBC (Bld) [#/Vol] 3.60 10*6/uL Low 3.90-5.60 [facility] Comment on above: Order Comment: PLATE LET CLUMPS/ NOTIFIED ARTIE Performed By: #### M G, HS TROP, DDIMER, TSH3, CMP, BNP, CBC, [id number], PTT, PT #### [facility] [address] [place] [address] [place] Glucose [Mass/volume] in Ser um or PlasmaOrdered By: Angelica Lawler on 01-15-2025 Glucose [Mass/Vol] 72 mg/dL Normal 70-100 [facility] Comment on above: ADA recommended refe rence rangeRandom Glucose Reference Range is dependent on time and content of last meal. Glucose of more than 200 mg/dL in a nonstressed, ambulatory subject supports the diagnosis of Diabetes Mellitus. Result Comment: Bloxom om Glucose Reference Range is dependent on time and content of last meal. Glucose of more than 200 mg/dL in a nonstressed, ambulatory subject supports the diagnosis of Diabetes Mellitus. ADA recommended reference range Performed By: #### M G, HS TROP, DDIMER, TSH3, CMP, BNP, CBC, [id number], PTT, PT #### [facility] [address] [place] [id number] [place] Hematocrit [Volume Fraction] of Blood by Automated countOrdered By: Angelica Lawler on 01-15-2025 Hematocrit (Bld) [Volume fraction] 28.9 % Low 38.8-50.0 [facility] Comment on above: Order Comment: PLATE LET CLUMPS/ NOTIFIED ARTIE Performed By: #### M G, HS TROP, DDIMER, TSH3, CMP, BNP, CBC, [id number], PTT, PT #### [facility] [address] [place] [phone] [place] Hemoglobin [Mass/volume] in BloodOrdered By: Angelica Lawler on 01-15-2025 Hemoglobin (Bld) [Mass/Vol] 9.4 g/dL Low 13.0-17.0 [facility] Comment on above: Order Comment: PLATE LET CLUMPS/ NOTIFIED ARTIE Performed By: #### M G, HS TROP, DDIMER, TSH3, CMP, BNP, CBC, [id number], PTT, PT #### [facility] [address] [place] [address] [place] INR in Platelet poor plasma by Coagulation assayOrdered By: Angelica Lawler on 01-15-2025 INR Coag (PPP) [Relative time] 1.4 {INR} Normal [facility] Comment on above: INR Therapeutic Rang [...] heart valves: 3 - 4.5 PERFORMED BY: [place] [address] PATHOLOGIST SEARCH ENGINE OPTIMIZATION STRATEGIST KELVIN HOLMAN M.D. Performed By: #### M G, HS TROP, DDIMER, TSH3, CMP, BNP, CBC, [id number], PTT, PT #### [facility] [address] [place] [address] Lactate [Moles/volume] in Se rum or PlasmaOrdered By: Angelica Lawler on 01-15-2025 Lactate [Moles/Vol] 0.8 mmol/L Normal 0.5-1.9 [facility] Comment on above: Lactic Acid referenc e range has been updated to 0.5 1.9 mmol/L and the critical range of 2.0 or greater. Result Comment: Lact ic Acid reference range has been updated to 0.5 ? 1.9 mmol/L and the critical range of 2.0 or greater. PERFORMED BY: [address] [address] PATHOLOGIST SEARCH ENGINE OPTIMIZATION STRATEGIST KELVIN HOLMAN M.D. Performed By: #### M G, HS TROP, DDIMER, TSH3, CMP, BNP, CBC, [id number], PTT, PT #### [facility] [address] [place] [address] Leukocytes [#/volume] correc abe for nucleated erythrocytes in Blood by Automated counOrdered By: Angelica Lawler on 01-15-2025 WBC corrected for nucl RBC Auto (Bld) [#/Vol] 18.0 10*3/uL High 4.1-10.5 [facility] Leukocytes [#/volume] in Blo od by Automated countOrdered By: Angelica Lawler on 01-15-2025 WBC (Bld) [#/Vol] 18.0 10*3/uL High 4.1-10.5 [facility] Comment on above: Order Comment: PLATE LET CLUMPS/ NOTIFIED ARTIE Performed By: #### M G, HS TROP, DDIMER, TSH3, CMP, BNP, CBC, [id number], PTT, PT #### [facility] [address] [place] [address] Lymphocytes [#/volume] in Bl ood by Automated countOrdered By: Angelica Lawler on 01-15-2025 Lymphocytes (Bld) [#/Vol] 0.7 10*3/uL Low 1.00-4.8 [facility] Comment on above: Order Comment: PLATE LET CLUMPS/ NOTIFIED ARTIE Performed By: #### M G, HS TROP, DDIMER, TSH3, CMP, BNP, CBC, [id number], PTT, PT #### [facility] [address] [place] [address] Lymphocytes/100 leukocytes i n Blood by Automated countOrdered By: Angelica Lawler on 01-15-2025 Lymphocytes/100 WBC (Bld) 3.8 % Normal . [facility] Comment on above: Order Comment: PLATE LET CLUMPS/ NOTIFIED ARTIE Performed By: #### M G, HS TROP, DDIMER, TSH3, CMP, BNP, CBC, [id number], PTT, PT #### [address] MCH [Entitic mass] by Automa abe countOrdered By: Angelica Lawler on 01-15-2025 MCH (RBC) [Entitic mass] 26.2 pg Low 27.5-35.2 [facility] Comment on above: Order Comment: PLATE LET CLUMPS/ NOTIFIED ARTIE Performed By: #### M G, HS TROP, DDIMER, TSH3, CMP, BNP, CBC, [id number], PTT, PT #### [facility] [address] [place] [address] [facility] MCHC Auto (RBC) [Mass/Vol]Or dered By: Angelica Lawler on 01-15-2025 MCHC (RBC) [Mass/Vol] 32.6 g/dL 32.5-35.6 [facility] MCV [Entitic volume] by Auto mated countOrdered By: Angelica Lawler on 01-15-2025 MCV (RBC) [Entitic vol] 80.3 fL Low 83.5-101 [facility] Comment on above: Order Comment: PLATE LET CLUMPS/ NOTIFIED ARTIE Performed By: #### M G, HS TROP, DDIMER, TSH3, CMP, BNP, CBC, [id number], PTT, PT #### [facility] [address] [place] [address] [facility] Magnesiumon 01-15-2025 Magnesium Normal 1.9-2.7 [facility] Comment on above: Result Comment: Spec imen hemolyzed, redraw requested PERFORMED BY: [place] [address] PATHOLOGIST SEARCH ENGINE OPTIMIZATION STRATEGIST KELVIN HOLMAN M.D. Performed By: #### M G, HS TROP, DDIMER, TSH3, CMP, BNP, CBC, [id number], PTT, PT #### [facility] [address] [place] [address] [facility] Magnesium SerPl-mCncon 01-15 Magnesium [Mass/Vol] 1.4 mg/dL Low 1.7-2.3 [facility] Comment on above: Order Comment: Speci men Type: BLOOD SPECIMENOrdering Facility: [facility] Address: [address] [place] [address] Performed By: #### 2 4323-8, 68375-3 ####[facility] LABCLIA [id number] [place] [address] Magnesium [Mass/volume] in S karishma or PlasmaOrdered By: Angelica Lawler on 01-15-2025 Magnesium [Mass/Vol] 1.4 mg/dL Low 1.9-2.7 [facility] Comment on above: Order Comment: 1ST S pecimen hemolyzed, redraw requested Result Comment: PERF ORMED BY: [place] [address] PATHOLOGIST SEARCH ENGINE OPTIMIZATION STRATEGIST KELVIN HOLMAN M.D. Performed By: #### M G, HS TROP, DDIMER, TSH3, CMP, BNP, CBC, [id number], PTT, PT #### [facility] [address] [place] [address] [place] Microcytes LM Ql (Bld)Ordere d By: Angelica Lawler on 01-15-2025 Microcytes Ql (Bld) Slight [facility] Monocyte distribution width [Entitic volume] in Blood by AutomatedOrdered By: Angelica Lawler on 01-15-2025 Monocyte distribution width Auto (Bld) [Entitic vol] Test not performed % 0.00-20.00 [facility] Comment on above: Unable to calculate MDW because the Absolute Monocyte Count is <0.8. Monocytes [#/volume] in Bloo d by Automated countOrdered By: Angelica Lawler on 01-15-2025 Monocytes (Bld) [#/Vol] 0.1 10*3/uL Normal 0.0-0.8 [facility] Comment on above: Order Comment: PLATE LET CLUMPS/ NOTIFIED ARTIE Performed By: #### M G, HS TROP, DDIMER, TSH3, CMP, BNP, CBC, [id number], PTT, PT #### [facility] [address] [place] [address] [place] Monocytes/100 leukocytes in Blood by Automated countOrdered By: Angelica Lawler on 01-15-2025 Monocytes/100 WBC (Bld) 0.3 % Normal . [facility] Comment on above: Order Comment: PLATE LET CLUMPS/ NOTIFIED ARTIE Performed By: #### M G, HS TROP, DDIMER, TSH3, CMP, BNP, CBC, [id number], PTT, PT #### [facility] [address] [place] [address] [place] Neutrophils [#/volume] in Bl ood by Automated countOrdered By: Angelica Lawler on 01-15-2025 Neutrophils (Bld) [#/Vol] 16.6 10*3/uL High 1.8-7.7 [facility] Comment on above: Order Comment: PLATE LET CLUMPS/ NOTIFIED ARTIE Performed By: #### M G, HS TROP, DDIMER, TSH3, CMP, BNP, CBC, [id number], PTT, PT #### [facility] [address] [place] [address] [place] Neutrophils/100 leukocytes i n Blood by Automated countOrdered By: Angelica Lawler on 01-15-2025 Neutrophils/100 WBC (Bld) 94.9 % Normal . [facility] Comment on above: Order Comment: PLATE LET CLUMPS/ NOTIFIED ARTIE Performed By: #### M G, HS TROP, DDIMER, TSH3, CMP, BNP, CBC, [id number], PTT, PT #### [facility] [address] No Panel InformationOrdered By: Angelica Lawler on 01-15-2025 Estimated GFR (CKD-EPI) > 60.0 mL/Min [facility] Creatinine Clearance (Chem 83.35 [facility] Nucleated erythrocytes [Pres ence] in Blood by Automated countOrdered By: Angelica Lawler on 01-15-2025 Nucleated RBC Auto Ql (Bld) 0.0 /100{WBC} 0-0.5 [facility] Platelet adequacy [Presence] in Blood by Light microscopyOrdered By: Angelica Lawler on 01-15-2025 Platelets LM Ql (Bld) Normal Normal [facility] Platelet mean volume [Entiti c volume] in Blood by Automated countOrdered By: Angelica Lawler on 01-15-2025 Platelet mean volume (Bld) [Entitic vol] 7.4 fL Normal 6.6-10.1 [facility] Comment on above: Order Comment: PLATE LET CLUMPS/ NOTIFIED ARTIE Performed By: #### M G, HS TROP, DDIMER, TSH3, CMP, BNP, CBC, [id number], PTT, PT #### [facility] [address] Platelet morphology finding [Identifier] in BloodOrdered By: Angelica Lawler on 01-15-2025 Platelet morphology finding Nom (Bld) Normal Normal [facility] Platelets [#/volume] in Bloo d by Automated countOrdered By: Angelica Lawler on 01-15-2025 Platelets (Bld) [#/Vol] 220 10*3/uL Normal 150-450 [facility] Comment on above: Order Comment: PLATE LET CLUMPS/ NOTIFIED ARTIE Performed By: #### M G, HS TROP, DDIMER, TSH3, CMP, BNP, CBC, [id number], PTT, PT #### [facility] [address] Potassium [Moles/volume] in Serum or PlasmaOrdered By: Angelica Lawler on 01-15-2025 Potassium [Moles/Vol] 4.2 mmol/L Normal 3.5-5.1 [facility] Comment on above: Order Comment: 1ST S pecimen hemolyzed, redraw requested Performed By: #### M G, HS TROP, DDIMER, TSH3, CMP, BNP, CBC, [id number], PTT, PT #### [facility] [address] Prothrombin time (PT)Ordered By: Angelica Lawler on 01-15-2025 PT Coag (PPP) [Time] 15.8 s High 9.0-12.9 [facility] Comment on above: A hematocrit value g reater than 55% may lead to inaccurate results in coagulation testing. Patients having hematocrit values >55% require a special collection tube for coagulation studies. Please contact the laboratory at [phone] for redraw instructions. Result Comment: A he matocrit value greater than 55% may lead to inaccurate results in coagulation testing. Patients having hematocrit values >55% require a special collection tube for coagulation studies. Please contact the laboratory at [phone] for redraw instructions. Performed By: #### M G, HS TROP, DDIMER, TSH3, CMP, BNP, CBC, [id number], PTT, PT #### [address] Scan and CBCon 01-15-2025 Mean Corpuscular HGB Conc 32.6 g/dL Normal 32.5-35.6 [facility] Comment on above: Order Comment: PLATE LET CLUMPS/ NOTIFIED ARTIE Performed By: #### M G, HS TROP, DDIMER, TSH3, CMP, BNP, CBC, [id number], PTT, PT #### [address] Microcytosis Slight Normal [facility] Comment on above: Order Comment: PLATE LET CLUMPS/ NOTIFIED ARTIE Performed By: #### M G, HS TROP, DDIMER, TSH3, CMP, BNP, CBC, [id number], PTT, PT #### [address] Monocyte Distribution Width Not performed Normal 0.00-20.00 [facility] Comment on above: Order Comment: PLATE LET CLUMPS/ NOTIFIED ARTIE Result Comment: Unab le to calculate MDW because the Absolute Monocyte Count is <0.8. Performed By: #### M G, HS TROP, DDIMER, TSH3, CMP, BNP, CBC, [id number], PTT, PT #### [address] NRBC% 0.0 /100{WBC} Normal 0-0.5 [facility] Comment on above: Order Comment: PLATE LET CLUMPS/ NOTIFIED ARTIE Performed By: #### M G, HS TROP, DDIMER, TSH3, CMP, BNP, CBC, [id number], PTT, PT #### [address] Platelet Estimate Normal Normal Normal [facility] Comment on above: Order Comment: PLATE LET CLUMPS/ NOTIFIED ARTIE Performed By: #### M G, HS TROP, DDIMER, TSH3, CMP, BNP, CBC, [id number], PTT, PT #### [facility] [address] Platelet Morphology Normal Normal Normal [facility] Comment on above: Order Comment: PLATE LET CLUMPS/ NOTIFIED ARTIE Result Comment: PERF ORMED BY: [place] [address] PATHOLOGIST SEARCH ENGINE OPTIMIZATION STRATEGIST KELVIN HOLMAN M.D. Performed By: #### M G, HS TROP, DDIMER, TSH3, CMP, BNP, CBC, [id number], PTT, PT #### [address] White Blood Count 18.0 [CFU]/mL High 4.1-10.5 [facility] Comment on above: Order Comment: PLATE LET CLUMPS/ NOTIFIED ARTIE Performed By: #### M G, HS TROP, DDIMER, TSH3, CMP, BNP, CBC, [id number], PTT, PT #### [address] Serum or plasma anion gap de terminationOrdered By: Angelica Lawler on 01-15-2025 Anion gap [Moles/Vol] TNP [facility] Comment on above: Test not performed Sodium [Moles/volume] in Ser um or PlasmaOrdered By: Angelica Lawler on 01-15-2025 Sodium [Moles/Vol] 133 mmol/L Low 136-145 [facility] Comment on above: Performed By: #### M G, HS TROP, DDIMER, TSH3, CMP, BNP, CBC, [id number], PTT, PT #### [facility] [address] [place] [address] [place] Troponin I High Sensitivityo n 01-15-2025 Troponin I High Sensitivity 7 Normal 0-20 [facility] Comment on above: Result Comment: The Troponin units of report have been changed to meet the Chest Pain Accreditation requirement, element EC5.M1l2. Troponin units are changed from pg/ml to ng/L. Also, the decimal is removed and results are in whole numbers. PERFORMED BY: [place] [address] PATHOLOGIST SEARCH ENGINE OPTIMIZATION STRATEGIST KELVIN HOLMAN M.D. Performed By: #### M G, HS TROP, DDIMER, TSH3, CMP, BNP, CBC, [id number], PTT, PT #### [address] Troponin I High Sensitivity 9 Normal 0-20 [facility] Comment on above: Result Comment: The Troponin units of report have been changed to meet the Chest Pain Accreditation requirement, element EC5.M1l2. Troponin units are changed from pg/ml to ng/L. Also, the decimal is removed and results are in whole numbers. PERFORMED BY: [place] [address] PATHOLOGIST SEARCH ENGINE OPTIMIZATION STRATEGIST KELVIN HOLMAN M.D. Performed By: #### M G, HS TROP, DDIMER, TSH3, CMP, BNP, CBC, [id number], PTT, PT #### [address] Troponin I High Sensitivity 7 Normal 0-20 [facility] Comment on above: Result Comment: The Troponin units of report have been changed to meet the Chest Pain Accreditation requirement, element EC5.M1l2. Troponin units are changed from pg/ml to ng/L. Also, the decimal is removed and results are in whole numbers. PERFORMED BY: [place] [address] PATHOLOGIST SEARCH ENGINE OPTIMIZATION STRATEGIST KELVIN HOLMAN M.D. Performed By: #### M G, HS TROP, DDIMER, TSH3, CMP, BNP, CBC, [id number], PTT, PT #### [address] Troponin I.cardiac [Mass/vol ume] in Serum or Plasma by Detection limit <= 0.01 ng/mLOrdered By: Angelica Lawler on 01-15-2025 Troponin I.cardiac DL <= 0.01 ng/mL [Mass/Vol] 7 ng/L 0-20 [facility] Comment on above: The Troponin units o f report have been changed to meet the Chest Pain Accreditation requirement, element EC5.M1l2. Troponin units are changed from pg/ml to ng/L. Also, the decimal is removed and results are in whole numbers. Urea nitrogen [Mass/volume] in Serum or PlasmaOrdered By: Angelica Lawler on 01-15-2025 Urea nitrogen [Mass/Vol] 27 mg/dL High 7-25 [facility] Comment on above: Performed By: #### M G, HS TROP, DDIMER, TSH3, CMP, BNP, CBC, [id number], PTT, PT #### [facility] [address] CNNURSEon 01-12-2025 CNNURSE Normal [facility] CNNURSEon 01-11-2025 CNNURSE Normal [facility] CNPNon 01-11-2025 CNPN Normal [facility] CNNURSEon 01-10-2025 CNNURSE Normal [facility] CNOVon 01-10-2025 CNOV Normal [facility] CNNURSEon 01-09-2025 CNNURSE Normal [facility] CNPNon 01-09-2025 CNPN Normal [facility] CBC W Auto Differential pane l (Bld)on 01-08-2025 Basophils (Bld) [#/Vol] 0.05 10*3/uL [facility] Basophils/100 WBC (Bld) 0.3 % [facility] Differential cell count method Nom (Bld) Auto [facility] Eosinophils (Bld) [#/Vol] 0.48 10*3/uL High [facility] Eosinophils/100 WBC (Bld) 3 % [facility] Erythrocyte distribution width (RBC) [Ratio] 14.8 % 11.5 - 15.0 % [facility] Hematocrit (Bld) [Volume fraction] 33 % Low 39.0 - 51.0 % [facility] Hemoglobin (Bld) [Mass/Vol] 10.5 g/dL Low 13.0 - 17.0 g/dL [facility] Immature granulocytes (Bld) [#/Vol] 0.15 10*3/uL High [facility] Immature granulocytes/100 WBC (Bld) 0.9 % [facility] Interpretation and review of laboratory results Abnormal [facility] Lymphocytes (Bld) [#/Vol] 1.83 10*3/uL [facility] Lymphocytes/100 WBC (Bld) 11.5 % [facility] MCH (RBC) [Entitic mass] 26.9 pg 26.0 - 34.0 pg [facility] MCHC (RBC) [Mass/Vol] 31.8 g/dL 30.5 - 36.0 g/dL [facility] MCV (RBC) [Entitic vol] 84.4 fL 80.0 - 100.0 fL [facility] Monocytes (Bld) [#/Vol] 0.74 10*3/uL [facility] Monocytes/100 WBC (Bld) 4.7 % [facility] Neutrophils (Bld) [#/Vol] 12.61 10*3/uL High [facility] Neutrophils/100 WBC (Bld) 79.6 % [facility] Nucleated RBC (Bld) [#/Vol] [facility] Nucleated RBC/100 WBC (Bld) [Ratio] 0 % /100 WBC [facility] Platelet mean volume (Bld) [Entitic vol] 9 fL 9.0 - 12.7 fL [facility] Platelets (Bld) [#/Vol] 315 10*3/uL [facility] RBC (Bld) [#/Vol] 3.91 10*6/uL Low 4.20 - 6.00 m/uL [facility] WBC (Bld) [#/Vol] 15.86 10*3/uL High [facility] Basophils (Bld) [#/Vol] 0.05 10*3/uL Normal <0.11 [facility] Comment on above: Order Comment: Speci men Type: BLOOD SPECIMENOrdering Facility: [facility] Address: [address] [place] [address] Performed By: #### 5 7021-8 ####[facility] LABCLIA [id number] [place] [address] Basophils/100 WBC (Bld) 0.3 % Normal [facility] Comment on above: Order Comment: Speci men Type: BLOOD SPECIMENOrdering Facility: [facility] Address: [address] [place] [address] Performed By: #### 5 7021-8 ####[facility] LABCLIA [id number] [place] [address] Differential cell count method Nom (Bld) Auto Normal [facility] Comment on above: Order Comment: Speci men Type: BLOOD SPECIMENOrdering Facility: [facility] Address: [address] [place] [address] Performed By: #### 5 7021-8 ####[facility] LABCLIA [id number] [place] [address] Eosinophils (Bld) [#/Vol] 0.48 10*3/uL High <0.46 [facility] Comment on above: Order Comment: Speci men Type: BLOOD SPECIMENOrdering Facility: [facility] Address: [address] [place] [address] Performed By: #### 5 7021-8 ####[facility] LABCLIA [id number] [place] [address] Eosinophils/100 WBC (Bld) 3.0 % Normal [facility] Comment on above: Order Comment: Speci men Type: BLOOD SPECIMENOrdering Facility: [facility] Address: [address] [place] [address] Performed By: #### 5 7021-8 ####[facility] LABCLIA [id number] [place] [address] Erythrocyte distribution width (RBC) [Ratio] 14.8 % Normal 11.5-15.0 [facility] Comment on above: Order Comment: Speci men Type: BLOOD SPECIMENOrdering Facility: [facility] Address: [address] [place] [address] Performed By: #### 5 7021-8 ####[facility] LABCLIA [id number] [place] [address] Hematocrit (Bld) [Volume fraction] 33.0 % Low 39.0-51.0 [facility] Comment on above: Order Comment: Speci men Type: BLOOD SPECIMENOrdering Facility: [facility] Address: [address] [place] [address] Performed By: #### 5 7021-8 ####[facility] LABIA [id number] [place] [address] Hemoglobin (Bld) [Mass/Vol] 10.5 g/dL Low 13.0-17.0 [facility] Comment on above: Order Comment: Speci men Type: BLOOD SPECIMENOrdering Facility: [facility] Address: [address] [place] [address] Performed By: #### 5 7021-8 ####[facility] LABCLIA [id number] [place] [address] Immature granulocytes (Bld) [#/Vol] 0.15 10*3/uL High <0.10 [facility] Comment on above: Order Comment: Speci men Type: BLOOD SPECIMENOrdering Facility: [facility] Address: [address] [place] [address] Performed By: #### 5 7021-8 ####[facility] LABIA [id number] [place] [address] Immature granulocytes/100 WBC (Bld) 0.9 % Normal [facility] Comment on above: Order Comment: Speci men Type: BLOOD SPECIMENOrdering Facility: [facility] Address: [address] [place] [address] Performed By: #### 5 7021-8 ####[facility] LABCLIA [id number] [place] [address] Lymphocytes (Bld) [#/Vol] 1.83 10*3/uL Normal 1.00-4.00 [facility] Comment on above: Order Comment: Speci men Type: BLOOD SPECIMENOrdering Facility: [facility] Address: [address] [place] [address] Performed By: #### 5 7021-8 ####[facility] LABCLIA [id number] [place] [address] Lymphocytes/100 WBC (Bld) 11.5 % Normal [facility] Comment on above: Order Comment: Speci men Type: BLOOD SPECIMENOrdering Facility: [facility] Address: [address] [place] [address] Performed By: #### 5 7021-8 ####[facility] LABCLIA [id number] [place] [address] MCH (RBC) [Entitic mass] 26.9 pg Normal 26.0-34.0 [facility] Comment on above: Order Comment: Speci men Type: BLOOD SPECIMENOrdering Facility: [facility] Address: [address] [place] [address] Performed By: #### 5 7021-8 ####[facility] LABCLIA [id number] [place] [address] MCHC (RBC) [Mass/Vol] 31.8 g/dL Normal 30.5-36.0 [facility] Comment on above: Order Comment: Speci men Type: BLOOD SPECIMENOrdering Facility: [facility] Address: [address] [place] [address] Performed By: #### 5 7021-8 ####[facility] LABCLIA [id number] [place] [address] MCV (RBC) [Entitic vol] 84.4 fL Normal 80.0-100.0 [facility] Comment on above: Order Comment: Speci men Type: BLOOD SPECIMENOrdering Facility: [facility] Address: [address] [place] [address] Performed By: #### 5 7021-8 ####[facility] LABIA [id number] [place] [address] Monocytes (Bld) [#/Vol] 0.74 10*3/uL Normal <0.87 [facility] Comment on above: Order Comment: Speci men Type: BLOOD SPECIMENOrdering Facility: [facility] Address: [address] [place] [address] Performed By: #### 5 7021-8 ####[facility] LABCLIA [id number] [place] [address] Monocytes/100 WBC (Bld) 4.7 % Normal [facility] Comment on above: Order Comment: Speci men Type: BLOOD SPECIMENOrdering Facility: [facility] Address: [address] [place] [address] Performed By: #### 5 7021-8 ####[facility] LABCLIA [id number] [place] [address] Neutrophils (Bld) [#/Vol] 12.61 10*3/uL High 1.45-7.50 [facility] Comment on above: Order Comment: Speci men Type: BLOOD SPECIMENOrdering Facility: [facility] Address: [address] [place] [address] Performed By: #### 5 7021-8 ####[facility] LABCLIA [id number] [place] [address] Neutrophils/100 WBC (Bld) 79.6 % Normal [facility] Comment on above: Order Comment: Speci men Type: BLOOD SPECIMENOrdering Facility: [facility] Address: [address] [place] [address] Performed By: #### 5 7021-8 ####[facility] LABCLIA [id number] [place] [address] Nucleated RBC (Bld) [#/Vol] 10*3/uL Normal <0.01 [facility] Comment on above: Order Comment: Speci men Type: BLOOD SPECIMENOrdering Facility: [facility] Address: [address] [place] [address] Performed By: #### 5 7021-8 ####[facility] LABCLIA [id number] [place] [address] Nucleated RBC/100 WBC (Bld) [Ratio] 0.0 /100 WBC Normal [facility] Comment on above: Order Comment: Speci men Type: BLOOD SPECIMENOrdering Facility: [facility] Address: [address] [place] [address] Performed By: #### 5 7021-8 ####[facility] LABCLIA [id number] [place] [address] Platelet mean volume (Bld) [Entitic vol] 9.0 fL Normal 9.0-12.7 [facility] Comment on above: Order Comment: Speci men Type: BLOOD SPECIMENOrdering Facility: [facility] Address: [address] [place] [address] Performed By: #### 5 7021-8 ####[facility] LABCLIA [id number] [place] [address] Platelets (Bld) [#/Vol] 315 10*3/uL Normal 150-400 [facility] Comment on above: Order Comment: Speci men Type: BLOOD SPECIMENOrdering Facility: [facility] Address: [address] [place] [address] Performed By: #### 5 7021-8 ####[facility] LABCLIA [id number] [place] [address] RBC (Bld) [#/Vol] 3.91 10*6/uL Low 4.20-6.00 [facility] Comment on above: Order Comment: Speci men Type: BLOOD SPECIMENOrdering Facility: [facility] Address: [address] [place] [address] Performed By: #### 5 7021-8 ####[facility] LABCLIA [id number] [place] [address] WBC (Bld) [#/Vol] 15.86 10*3/uL High 3.70-11.00 [facility] Comment on above: Order Comment: Speci men Type: BLOOD SPECIMENOrdering Facility: [facility] Address: [address] [place] [address] Performed By: #### 5 7021-8 ####[facility] LABCLIA [id number] [place] [address] CNNURSEon 01-08-2025 CNNURSE Normal [facility] CNOVon 01-08-2025 CNOV Normal [facility] CNOVSPon 01-08-2025 CNOVSP Normal [facility] CNPNon 01-08-2025 CNPN Normal [facility] Comprehensive metabolic 2000 panelOrdered By: Sam De La Cruz on 01-08-2025 Albumin [Mass/Vol] 3.6 g/dL Low 3.9 - 4.9 g/dL [facility] ALP [Catalytic activity/Vol] 61 U/L 38 - 113 U/L [facility] ALT [Catalytic activity/Vol] 37 U/L 10 - 54 U/L [facility] Anion gap [Moles/Vol] 12 mmol/L 8 - 15 mmol/L [facility] AST [Catalytic activity/Vol] 27 U/L 14 - 40 U/L [facility] Bilirubin [Mass/Vol] 0.3 mg/dL 0.2 - 1 .3 mg/dL [facility] Calcium [Mass/Vol] 9.1 mg/dL 8.5 - 10. 2 mg/dL [facility] Chloride [Moles/Vol] 102 mmol/L 98 - 10 7 mmol/L [facility] CO2 [Moles/Vol] 22 mmol/L 22 - 30 mmol/L [facility] Creatinine [Mass/Vol] 0.7 mg/dL Low 0.73 - 1.22 mg/dL [facility] GFR/1.73 sq M.predicted among non-blacks MDRD (S/P/Bld) [Vol rate/Area] 104 mL/min/{1.73_m2} - PINF [facility] Comment on above: Estimated Glomerular Filtration [...] 131 mg/dL High 74 - 99 mg/dL [facility] Comment on above: The [place] [employer] (ADA) provides guidance for [...] Standards of Medical Care in Diabetes 2016, [place] [employer]. Diabetes Care. 2016.39(Suppl 1). Interpretation and review of laboratory results Abnormal [facility] Potassium [Moles/Vol] 3.6 mmol/L Low 3.7 - 5.1 mmol/L [facility] Protein [Mass/Vol] 6.9 g/dL 6.3 - 8.0 g/dL [facility] Sodium [Moles/Vol] 136 mmol/L 136 - 144 mmol/L [facility] Urea nitrogen [Mass/Vol] 8 mg/dL Low 9 - 24 mg/dL [facility] Comprehensive metabolic 2000 panelon 01-08-2025 Albumin [Mass/Vol] 3.6 g/dL Low 3.9-4.9 [facility] Comment on above: Order Comment: Speci men Type: BLOOD SPECIMENOrdering Facility: [facility] Address: [address] [place] [address] Performed By: #### 2 4323, ####[facility] LABCLIA [id number] [place] [address] ALP [Catalytic activity/Vol] 61 U/L Normal 38-113 [facility] Comment on above: Order Comment: Speci men Type: BLOOD SPECIMENOrdering Facility: [facility] Address: [address] [place] [address] Performed By: #### 2 4323-8, ####[facility] LABCLIA [id number] [place] [address] ALT [Catalytic activity/Vol] 37 U/L Normal 10-54 [facility] Comment on above: Order Comment: Speci men Type: BLOOD SPECIMENOrdering Facility: [facility] Address: [address] [place] [address] Performed By: #### 2 4323-8, ####[facility] LABCLIA [id number] [place] [address] Anion gap [Moles/Vol] 12 mmol/L Normal 8-15 [facility] Comment on above: Order Comment: Speci men Type: BLOOD SPECIMENOrdering Facility: [facility] Address: [address] [place] [address] Performed By: #### 2 4323-8, ####[facility] LABCLIA [id number] [place] [address] AST [Catalytic activity/Vol] 27 U/L Normal 14-40 [facility] Comment on above: Order Comment: Speci men Type: BLOOD SPECIMENOrdering Facility: [facility] Address: [address] [place] [address] Performed By: #### 2 4323-8, ####[facility] LABCLIA [id number] [place] [address] Bilirubin [Mass/Vol] 0.3 mg/dL Normal 0.2-1.3 [facility] Comment on above: Order Comment: Speci men Type: BLOOD SPECIMENOrdering Facility: [facility] Address: [address] [place] [address] Performed By: #### 2 4323-8, ####[facility] LABCLIA [id number] [place] [address] Calcium [Mass/Vol] 9.1 mg/dL Normal 8.5-10.2 [facility] Comment on above: Order Comment: Speci men Type: BLOOD SPECIMENOrdering Facility: [facility] Address: [address] [place] [address] Performed By: #### 2 4323-8, ####[facility] LABCLIA [id number] [place] [address] Chloride [Moles/Vol] 102 mmol/L Normal 98-107 [facility] Comment on above: Order Comment: Speci men Type: BLOOD SPECIMENOrdering Facility: [facility] Address: [address] [place] [address] Performed By: #### 2 4323-8, ####[facility] LABCLIA [id number] [place] [address] CO2 [Moles/Vol] 22 mmol/L Normal 22-30 [facility] Comment on above: Order Comment: Speci men Type: BLOOD SPECIMENOrdering Facility: [facility] Address: [address] [place] [address] Performed By: #### 2 4323-8, ####[facility] LABCLIA [id number] [place] [address] Creatinine [Mass/Vol] 0.70 mg/dL Low 0.73-1.22 [facility] Comment on above: Order Comment: Speci men Type: BLOOD SPECIMENOrdering Facility: [facility] Address: [address] [place] [address] Performed By: #### 2 4323-8, ####[facility] LABCLIA [id number] [place] [address] eGFRcr SerPlBld CKD-EPI 2020 104 mL/min/1.73m??? Normal >=60 [facility] Comment on above: Order Comment: Speci men Type: BLOOD SPECIMENOrdering Facility: [facility] Address: [address] [place] [address] Result Comment: Carly mated Glomerular Filtration Rate [...] actual GFR. Performed By: #### 2 4323-8, ####[facility] LABCLIA [id number] [place] [address] Glucose [Mass/Vol] 131 mg/dL High 74-99 [facility] Comment on above: Order Comment: Speci men Type: BLOOD SPECIMENOrdering Facility: [facility] Address: [address] [place] [address] Result Comment: The [place] Diabetes [employer] (ADA) provides guidance for cutoff [...] Standards of Medical Care in Diabetes 2016, [place] [employer]. Diabetes Care. 2016.39(Suppl 1). Performed By: #### 2 4323-8, ####[facility] LABCLIA [id number] [place] [address] Potassium [Moles/Vol] 3.6 mmol/L Low 3.7-5.1 [facility] Comment on above: Order Comment: Speci men Type: BLOOD SPECIMENOrdering Facility: [facility] Address: [address] [place] [address] Performed By: #### 2 4323, ####[facility] LABCLIA [id number] [place] [address] Protein [Mass/Vol] 6.9 g/dL Normal 6.3-8.0 [facility] Comment on above: Order Comment: Speci men Type: BLOOD SPECIMENOrdering Facility: [facility] Address: [address] [place] [address] Performed By: #### 2 4323-8, ####[facility] LABCLIA [id number] [place] [address] Sodium [Moles/Vol] 136 mmol/L Normal 136-144 [facility] Comment on above: Order Comment: Speci men Type: BLOOD SPECIMENOrdering Facility: [facility] Address: [address] [place], [place] [id number] Performed By: #### 2 4323-8, ####[facility] LABCLIA [id number] [place] [address] Urea nitrogen [Mass/Vol] 8 mg/dL Low 9-24 [facility] Comment on above: Order Comment: Speci men Type: BLOOD SPECIMENOrdering Facility: [facility] Address: [address] [place], [place] [id number] Performed By: #### 2 4323-8, ####[facility] LABCLIA [id number] [place] [address] MAGNESIUMon 01-08-2025 Magnesium [Mass/Vol] 1.8 mg/dL 1.7 - 2 .3 mg/dL [facility] Magnesium SerPl-mCncon 01-08 Magnesium [Mass/Vol] 1.8 mg/dL Normal 1.7-2.3 [facility] Comment on above: Order Comment: Speci men Type: BLOOD SPECIMENOrdering Facility: [facility] Address: [address] [place] [address] Performed By: #### 2 4323-8, ####[facility] LABCLIA [id number] [place] [address] Magnesium [Mass/Vol]on 01-08 Interpretation and review of laboratory results Normal [facility] Basic Metabolic Panelon 07-2 6-2025 Creatinine Clr Calc Pharmacy 106.80 Normal [facility] Comment on above: Result Comment: PERF ORMED BY: [place] [address] PATHOLOGIST SEARCH ENGINE OPTIMIZATION STRATEGIST KELVIN HOLMAN M.D. Performed By: #### M G, HS TROP, DDIMER, TSH3, CMP, BNP, CBC, [id number], PTT, PT #### [place] [address] [place] GFR/1.73 sq M.predicted MDRD (S/P/Bld) [Vol rate/Area] mL/min/{1.73_m2} Normal [facility] Comment on above: Performed By: #### M G, HS TROP, DDIMER, TSH3, CMP, BNP, CBC, [id number], PTT, PT #### [address] Basophils [#/volume] in Bloo d by Automated countOrdered By: Norah Whittaker on 01-06-2025 Basophils (Bld) [#/Vol] 0.1 10*3/uL Normal 0.0-0.2 [facility] Comment on above: Result Comment: PERF ORMED BY: [place] [address] PATHOLOGIST SEARCH ENGINE OPTIMIZATION STRATEGIST KELVIN HOLMAN M.D. Performed By: #### M G, HS TROP, DDIMER, TSH3, CMP, BNP, CBC, [id number], PTT, PT #### [place] [address] [place] Basophils/100 leukocytes in Blood by Automated countOrdered By: Norah Whittaker on 01-06-2025 Basophils/100 WBC (Bld) 0.7 % Normal . [facility] Comment on above: Performed By: #### M G, HS TROP, DDIMER, TSH3, CMP, BNP, CBC, [id number], PTT, PT #### [place] [address] [place] Calcium [Mass/volume] in Ser um or PlasmaOrdered By: Norah Whittaker on 01-06-2025 Calcium [Mass/Vol] 7.4 mg/dL Low 8.6-10.3 [facility] Comment on above: Performed By: #### M G, HS TROP, DDIMER, TSH3, CMP, BNP, CBC, [id number], PTT, PT #### [address] Carbon dioxide, total [Moles /volume] in Serum or PlasmaOrdered By: Norah Whittaker on 01-06-2025 CO2 [Moles/Vol] 22.6 mmol/L Normal 21.0-31.0 [facility] Comment on above: Performed By: #### M G, HS TROP, DDIMER, TSH3, CMP, BNP, CBC, [id number], PTT, PT #### [address] Chloride [Moles/volume] in S karishma or PlasmaOrdered By: Norah Whittaker on 01-06-2025 Chloride [Moles/Vol] 104 mmol/L Normal 98-107 [facility] Comment on above: Performed By: #### M G, HS TROP, DDIMER, TSH3, CMP, BNP, CBC, [id number], PTT, PT #### [address] Complete Blood Count Auto Di ffon 01-06-2025 Mean Corpuscular HGB Conc 32.6 g/dL Normal 32.5-35.6 [facility] Comment on above: Performed By: #### M G, HS TROP, DDIMER, TSH3, CMP, BNP, CBC, [id number], PTT, PT #### [address] NRBC% 0.0 /100{WBC} Normal 0-0.5 [facility] Comment on above: Performed By: #### M G, HS TROP, DDIMER, TSH3, CMP, BNP, CBC, [id number], PTT, PT #### [address] White Blood Count 14.9 [CFU]/mL High 4.1-10.5 [facility] Comment on above: Performed By: #### M G, HS TROP, DDIMER, TSH3, CMP, BNP, CBC, [id number], PTT, PT #### [facility] [address] Creatinine [Mass/volume] in Serum or PlasmaOrdered By: Norah Whittaker on 01-06-2025 Creatinine [Mass/Vol] 0.73 mg/dL Normal 0.70-1.30 [facility] Comment on above: Performed By: #### M G, HS TROP, DDIMER, TSH3, CMP, BNP, CBC, [id number], PTT, PT #### [facility] [address] Eosinophils [#/volume] in Bl ood by Automated countOrdered By: Norah Whittaker on 01-06-2025 Eosinophils (Bld) [#/Vol] 0.5 10*3/uL High 0.0-0.45 [facility] Comment on above: Performed By: #### M G, HS TROP, DDIMER, TSH3, CMP, BNP, CBC, [id number], PTT, PT #### [facility] [address] [place] [address] [place] Eosinophils/100 leukocytes i n Blood by Automated countOrdered By: Norah Whittaker on 01-06-2025 Eosinophils/100 WBC (Bld) 3.4 % Normal . [facility] Comment on above: Performed By: #### M G, HS TROP, DDIMER, TSH3, CMP, BNP, CBC, [id number], PTT, PT #### [facility] [address] [place] [address] [place] Erythrocyte distribution wid th [Ratio] by Automated countOrdered By: Norah Whittaker on 01-06-2025 Erythrocyte distribution width (RBC) [Ratio] 15.8 % High 12.0-14.8 [facility] Comment on above: Performed By: #### M G, HS TROP, DDIMER, TSH3, CMP, BNP, CBC, [id number], PTT, PT #### [facility] [address] [place] [address] [place] Erythrocytes [#/volume] in B lood by Automated countOrdered By: Norah Whittaker on 01-06-2025 RBC (Bld) [#/Vol] 3.21 10*6/uL Low 3.90-5.60 [facility] Comment on above: Performed By: #### M G, HS TROP, DDIMER, TSH3, CMP, BNP, CBC, [id number], PTT, PT #### [facility] [address] [place] [id number] [place] Glucose [Mass/volume] in Ser um or PlasmaOrdered By: Norah Whittaker on 01-06-2025 Glucose [Mass/Vol] 92 mg/dL Normal 70-100 [facility] Comment on above: ADA recommended refe rence rangeRandom Glucose Reference Range is dependent on time and content of last meal. Glucose of more than 200 mg/dL in a nonstressed, ambulatory subject supports the diagnosis of Diabetes Mellitus. Result Comment: [place] om Glucose Reference Range is dependent on time and content of last meal. Glucose of more than 200 mg/dL in a nonstressed, ambulatory subject supports the diagnosis of Diabetes Mellitus. ADA recommended reference range Performed By: #### M G, HS TROP, DDIMER, TSH3, CMP, BNP, CBC, [id number], PTT, PT #### [facility] [address] [place] [id number] [place] Hematocrit [Volume Fraction] of Blood by Automated countOrdered By: Norah Whittaker on 01-06-2025 Hematocrit (Bld) [Volume fraction] 26.3 % Low 38.8-50.0 [facility] Comment on above: Performed By: #### M G, HS TROP, DDIMER, TSH3, CMP, BNP, CBC, [id number], PTT, PT #### [facility] [address] [place] [id number] [place] Hemoglobin [Mass/volume] in BloodOrdered By: Norah Whittaker on 01-06-2025 Hemoglobin (Bld) [Mass/Vol] 8.6 g/dL Low 13.0-17.0 [facility] Comment on above: Performed By: #### M G, HS TROP, DDIMER, TSH3, CMP, BNP, CBC, [id number], PTT, PT #### [facility] [address] Leukocytes [#/volume] correc abe for nucleated erythrocytes in Blood by Automated counOrdered By: Norah Whittaker on 01-06-2025 WBC corrected for nucl RBC Auto (Bld) [#/Vol] 14.9 10*3/uL High 4.1-10.5 [facility] Leukocytes [#/volume] in Blo od by Automated countOrdered By: Norah Whittaker on 01-06-2025 WBC (Bld) [#/Vol] 14.9 10*3/uL High 4.1-10.5 [facility] Comment on above: Performed By: #### M G, HS TROP, DDIMER, TSH3, CMP, BNP, CBC, [id number], PTT, PT #### [facility] [address] [place] [address] [place] Lymphocytes [#/volume] in Bl ood by Automated countOrdered By: Norah Whittaker on 01-06-2025 Lymphocytes (Bld) [#/Vol] 1.2 10*3/uL Normal 1.00-4.8 [facility] Comment on above: Performed By: #### M G, HS TROP, DDIMER, TSH3, CMP, BNP, CBC, [id number], PTT, PT #### [facility] [address] [place] [address] [place] Lymphocytes/100 leukocytes i n Blood by Automated countOrdered By: Norah Whittaker on 01-06-2025 Lymphocytes/100 WBC (Bld) 8.3 % Normal . [facility] Comment on above: Performed By: #### M G, HS TROP, DDIMER, TSH3, CMP, BNP, CBC, [id number], PTT, PT #### [facility] [address] [place] [address] [place] MCH [Entitic mass] by Automa abe countOrdered By: Norah Whittaker on 01-06-2025 MCH (RBC) [Entitic mass] 26.8 pg Low 27.5-35.2 [facility] Comment on above: Performed By: #### M G, HS TROP, DDIMER, TSH3, CMP, BNP, CBC, [id number], PTT, PT #### [facility] [address] MCHC Auto (RBC) [Mass/Vol]Or dered By: Norah Whittaker on 01-06-2025 MCHC (RBC) [Mass/Vol] 32.6 g/dL 32.5-35.6 [facility] MCV [Entitic volume] by Auto mated countOrdered By: Norah Whittaker on 01-06-2025 MCV (RBC) [Entitic vol] 82.1 fL Low 83.5-101 [facility] Comment on above: Performed By: #### M G, HS TROP, DDIMER, TSH3, CMP, BNP, CBC, [id number], PTT, PT #### [address] Monocytes [#/volume] in Bloo d by Automated countOrdered By: Norah Whittaker on 01-06-2025 Monocytes (Bld) [#/Vol] 0.9 10*3/uL High 0.0-0.8 [facility] Comment on above: Performed By: #### M G, HS TROP, DDIMER, TSH3, CMP, BNP, CBC, [id number], PTT, PT #### [address] Monocytes/100 leukocytes in Blood by Automated countOrdered By: Norah Whittaker on 01-06-2025 Monocytes/100 WBC (Bld) 6.0 % Normal . [facility] Comment on above: Performed By: #### M G, HS TROP, DDIMER, TSH3, CMP, BNP, CBC, [id number], PTT, PT #### [facility] [address] Neutrophils [#/volume] in Bl ood by Automated countOrdered By: Norah Whittaker on 01-06-2025 Neutrophils (Bld) [#/Vol] 12.2 10*3/uL High 1.8-7.7 [facility] Comment on above: Performed By: #### M G, HS TROP, DDIMER, TSH3, CMP, BNP, CBC, [id number], PTT, PT #### [facility] [address] Neutrophils/100 leukocytes i n Blood by Automated countOrdered By: Norah Whittaker on 01-06-2025 Neutrophils/100 WBC (Bld) 81.6 % Normal . [facility] Comment on above: Performed By: #### M G, HS TROP, DDIMER, TSH3, CMP, BNP, CBC, [id number], PTT, PT #### [facility] [address] [place] [address] No Panel InformationOrdered By: Norah Whittaker on 01-06-2025 Estimated GFR (CKD-EPI) > 60.0 mL/Min [facility] Creatinine Clearance (Chem 106.80 [facility] Nucleated erythrocytes [Pres ence] in Blood by Automated countOrdered By: Norah Whittaker on 01-06-2025 Nucleated RBC Auto Ql (Bld) 0.0 /100{WBC} 0-0.5 [facility] Platelet mean volume [Entiti c volume] in Blood by Automated countOrdered By: Norah Whittaker on 01-06-2025 Platelet mean volume (Bld) [Entitic vol] 7.6 fL Normal 6.6-10.1 [facility] Comment on above: Performed By: #### M G, HS TROP, DDIMER, TSH3, CMP, BNP, CBC, [id number], PTT, PT #### [facility] [address] [place] [address] Platelets [#/volume] in Bloo d by Automated countOrdered By: Norah Whittaker on 01-06-2025 Platelets (Bld) [#/Vol] 272 10*3/uL Normal 150-450 [facility] Comment on above: Performed By: #### M G, HS TROP, DDIMER, TSH3, CMP, BNP, CBC, [id number], PTT, PT #### [facility] [address] [place] [address] [place] Potassium [Moles/volume] in Serum or PlasmaOrdered By: Norah Semaskiene on 01-06-2025 Potassium [Moles/Vol] 3.2 mmol/L Low 3.5-5.1 [facility] Comment on above: Performed By: #### M G, HS TROP, DDIMER, TSH3, CMP, BNP, CBC, [id number], PTT, PT #### [facility] [address] Serum or plasma anion gap de terminationOrdered By: Norah Juaniene on 01-06-2025 Anion gap [Moles/Vol] 12.6 mmol/L Normal 6.0-15.[address] [facility] Comment on above: Performed By: #### M G, HS TROP, DDIMER, TSH3, CMP, BNP, CBC, [id number], PTT, PT #### [facility] [address] [place] [address] [place] Sodium [Moles/volume] in Ser um or PlasmaOrdered By: Norah Semaskiene on 01-06-2025 Sodium [Moles/Vol] 136 mmol/L Normal 136-145 [facility] Comment on above: Performed By: #### M G, HS TROP, DDIMER, TSH3, CMP, BNP, CBC, [id number], PTT, PT #### [facility] [address] [place] [address] [place] Urea nitrogen [Mass/volume] in Serum or PlasmaOrdered By: Norah Semaskiene on 01-06-2025 Urea nitrogen [Mass/Vol] 4 mg/dL Low 7-25 [facility] Comment on above: Performed By: #### M G, HS TROP, DDIMER, TSH3, CMP, BNP, CBC, [id number], PTT, PT #### [address] Aerobic Cultureon 01-05-2025 Aerobic Culture Light Normal Respira tory Felisa 2 Days Gram Stain Result 1+ White Blood Cells 1+ Epithelial Cells Rare Gram Positive Bacilli PERFORMED BY: [place] [address] PATHOLOGIST SEARCH ENGINE OPTIMIZATION STRATEGIST KELVIN Aranda [facility] Comment on above: Performed By: #### M G, HS TROP, DDIMER, TSH3, CMP, BNP, CBC, [id number], PTT, PT #### [address] Aerobic cultureOrdered By: Mike Whittaker on 01-05-2025 Bacteria identified Aer cx Nom (Unsp spec) 2 Days [facility] Basic Metabolic Panelon 12-13 Anion gap [Moles/Vol] 9.9 mmol/L Normal 6.0-15.0 [facility] Comment on above: Performed By: #### M G, HS TROP, DDIMER, TSH3, CMP, BNP, CBC, [id number], PTT, PT #### [address] Calcium [Mass/Vol] 7.8 mg/dL Low 8.6-10.3 [facility] Comment on above: Performed By: #### M G, HS TROP, DDIMER, TSH3, CMP, BNP, CBC, [id number], PTT, PT #### [place] [address] [place] Chloride [Moles/Vol] 109 mmol/L High 98-107 [facility] Comment on above: Performed By: #### M G, HS TROP, DDIMER, TSH3, CMP, BNP, CBC, [id number], PTT, PT #### [address] CO2 [Moles/Vol] 23.7 mmol/L Normal 21.0-31.0 [facility] Comment on above: Performed By: #### M G, HS TROP, DDIMER, TSH3, CMP, BNP, CBC, [id number], PTT, PT #### [address] Creatinine [Mass/Vol] 0.90 mg/dL Normal 0.70-1.30 [facility] Comment on above: Performed By: #### M G, HS TROP, DDIMER, TSH3, CMP, BNP, CBC, [id number], PTT, PT #### [place] [address] [place] Creatinine Clr Calc Pharmacy 86.63 Normal [facility] Comment on above: Result Comment: PERF ORMED BY: [place] [address] PATHOLOGIST SEARCH ENGINE OPTIMIZATION STRATEGIST KELVIN HOLMAN M.D. Performed By: #### M G, HS TROP, DDIMER, TSH3, CMP, BNP, CBC, [id number], PTT, PT #### [place] [address] [place] GFR/1.73 sq M.predicted MDRD (S/P/Bld) [Vol rate/Area] mL/min/{1.73_m2} Normal [facility] Comment on above: Performed By: #### M G, HS TROP, DDIMER, TSH3, CMP, BNP, CBC, [id number], PTT, PT #### [address] Glucose [Mass/Vol] 92 mg/dL Normal 70-100 [facility] Comment on above: Result Comment: [place] Glucose Reference Range is dependent on time and content of last meal. Glucose of more than 200 mg/dL in a nonstressed, ambulatory subject supports the diagnosis of Diabetes Mellitus. ADA recommended reference range Performed By: #### M G, HS TROP, DDIMER, TSH3, CMP, BNP, CBC, [id number], PTT, PT #### [address] Potassium [Moles/Vol] 3.6 mmol/L Normal 3.5-5.1 [facility] Comment on above: Performed By: #### M G, HS TROP, DDIMER, TSH3, CMP, BNP, CBC, [id number], PTT, PT #### [address] Sodium [Moles/Vol] 139 mmol/L Normal 136-145 [facility] Comment on above: Performed By: #### M G, HS TROP, DDIMER, TSH3, CMP, BNP, CBC, [id number], PTT, PT #### [address] Urea nitrogen [Mass/Vol] 6 mg/dL Low 7-25 [facility] Comment on above: Performed By: #### M G, HS TROP, DDIMER, TSH3, CMP, BNP, CBC, [id number], PTT, PT #### [address] CNPNon 01-05-2025 CNPN Normal [facility] Complete Blood Count Auto Di ffon 01-05-2025 Basophils (Bld) [#/Vol] 0.1 10*3/uL Normal 0.0-0.2 [facility] Comment on above: Result Comment: PERF ORMED BY: [place] [address] PATHOLOGIST SEARCH ENGINE OPTIMIZATION STRATEGIST KELVIN HOLMAN M.D. Performed By: #### M G, HS TROP, DDIMER, TSH3, CMP, BNP, CBC, [id number], PTT, PT #### [address] Basophils/100 WBC (Bld) 0.4 % Normal . [facility] Comment on above: Performed By: #### M G, HS TROP, DDIMER, TSH3, CMP, BNP, CBC, [id number], PTT, PT #### [address] Eosinophils (Bld) [#/Vol] 0.5 10*3/uL High 0.0-0.45 [facility] Comment on above: Performed By: #### M G, HS TROP, DDIMER, TSH3, CMP, BNP, CBC, [id number], PTT, PT #### [address] Eosinophils/100 WBC (Bld) 4.2 % Normal . [facility] Comment on above: Performed By: #### M G, HS TROP, DDIMER, TSH3, CMP, BNP, CBC, [id number], PTT, PT #### [address] Erythrocyte distribution width (RBC) [Ratio] 15.7 % High 12.0-14.8 [facility] Comment on above: Performed By: #### M G, HS TROP, DDIMER, TSH3, CMP, BNP, CBC, [id number], PTT, PT #### [address] Hematocrit (Bld) [Volume fraction] 27.5 % Low 38.8-50.0 [facility] Comment on above: Performed By: #### M G, HS TROP, DDIMER, TSH3, CMP, BNP, CBC, [id number], PTT, PT #### [address] Hemoglobin (Bld) [Mass/Vol] 8.8 g/dL Low 13.0-17.0 [facility] Comment on above: Performed By: #### M G, HS TROP, DDIMER, TSH3, CMP, BNP, CBC, [id number], PTT, PT #### [address] Lymphocytes (Bld) [#/Vol] 1.1 10*3/uL Normal 1.00-4.8 [facility] Comment on above: Performed By: #### M G, HS TROP, DDIMER, TSH3, CMP, BNP, CBC, [id number], PTT, PT #### [address] Lymphocytes/100 WBC (Bld) 9.0 % Normal . [facility] Comment on above: Performed By: #### M G, HS TROP, DDIMER, TSH3, CMP, BNP, CBC, [id number], PTT, PT #### [address] MCH (RBC) [Entitic mass] 26.8 pg Low 27.5-35.2 [facility] Comment on above: Performed By: #### M G, HS TROP, DDIMER, TSH3, CMP, BNP, CBC, [id number], PTT, PT #### [address] MCV (RBC) [Entitic vol] 83.3 fL Low 83.5-101 [facility] Comment on above: Performed By: #### M G, HS TROP, DDIMER, TSH3, CMP, BNP, CBC, [id number], PTT, PT #### [address] Mean Corpuscular HGB Conc 32.2 g/dL Low 32.5-35.6 [facility] Comment on above: Performed By: #### M G, HS TROP, DDIMER, TSH3, CMP, BNP, CBC, [id number], PTT, PT #### [address] Monocytes (Bld) [#/Vol] 1.1 10*3/uL High 0.0-0.8 [facility] Comment on above: Performed By: #### M G, HS TROP, DDIMER, TSH3, CMP, BNP, CBC, [id number], PTT, PT #### [address] Monocytes/100 WBC (Bld) 8.7 % Normal . [facility] Comment on above: Performed By: #### M G, HS TROP, DDIMER, TSH3, CMP, BNP, CBC, [id number], PTT, PT #### [address] Neutrophils (Bld) [#/Vol] 9.8 10*3/uL High 1.8-7.7 [facility] Comment on above: Performed By: #### M G, HS TROP, DDIMER, TSH3, CMP, BNP, CBC, [id number], PTT, PT #### [address] Neutrophils/100 WBC (Bld) 77.7 % Normal . [facility] Comment on above: Performed By: #### M G, HS TROP, DDIMER, TSH3, CMP, BNP, CBC, [id number], PTT, PT #### [address] NRBC% 0.1 /100{WBC} Normal 0-0.5 [facility] Comment on above: Performed By: #### M G, HS TROP, DDIMER, TSH3, CMP, BNP, CBC, [id number], PTT, PT #### [address] Platelet mean volume (Bld) [Entitic vol] 7.8 fL Normal 6.6-10.1 [facility] Comment on above: Performed By: #### M G, HS TROP, DDIMER, TSH3, CMP, BNP, CBC, [id number], PTT, PT #### [address] Platelets (Bld) [#/Vol] 251 10*3/uL Normal 150-450 [facility] Comment on above: Performed By: #### M G, HS TROP, DDIMER, TSH3, CMP, BNP, CBC, [id number], PTT, PT #### [address] RBC (Bld) [#/Vol] 3.30 10*6/uL Low 3.90-5.60 [facility] Comment on above: Performed By: #### M G, HS TROP, DDIMER, TSH3, CMP, BNP, CBC, [id number], PTT, PT #### [address] WBC (Bld) [#/Vol] 12.6 10*3/uL High 4.1-10.5 [facility] Comment on above: Performed By: #### M G, HS TROP, DDIMER, TSH3, CMP, BNP, CBC, [id number], PTT, PT #### [address] White Blood Count 12.6 [CFU]/mL High 4.1-10.5 [facility] Comment on above: Performed By: #### M G, HS TROP, DDIMER, TSH3, CMP, BNP, CBC, [id number], PTT, PT #### [address] Gram stain microscopyOrdered By: Norah Whittaker on 01-05-2025 Microscopic observation Gram stain Nom (Unsp spec) [facility] BNP ser/plasOrdered By: Norah Whittaker on 01-04-2025 Natriuretic peptide B (Bld) [Mass/Vol] 124.0 pg/mL High 5-100 [facility] Comment on above: Result Comment: PERF ORMED BY: [place] [address] PATHOLOGIST SEARCH ENGINE OPTIMIZATION STRATEGIST KELVIN HOLMAN M.D. Performed By: #### B BANQUET DIRECTOR #### [address] Basic Metabolic Panelon 12-13 Anion gap [Moles/Vol] 10.7 mmol/L Normal 6.0-15.0 [facility] Comment on above: Performed By: #### M G, HS TROP, DDIMER, TSH3, CMP, BNP, CBC, [id number], PTT, PT #### [address] Calcium [Mass/Vol] 7.8 mg/dL Low 8.6-10.3 [facility] Comment on above: Performed By: #### M G, HS TROP, DDIMER, TSH3, CMP, BNP, CBC, [id number], PTT, PT #### [address] Chloride [Moles/Vol] 107 mmol/L Normal 98-107 [facility] Comment on above: Performed By: #### M G, HS TROP, DDIMER, TSH3, CMP, BNP, CBC, [id number], PTT, PT #### [address] CO2 [Moles/Vol] 23.6 mmol/L Normal 21.0-31.0 [facility] Comment on above: Performed By: #### M G, HS TROP, DDIMER, TSH3, CMP, BNP, CBC, [id number], PTT, PT #### [facility] [address] Creatinine [Mass/Vol] 0.79 mg/dL Normal 0.70-1.30 [facility] Comment on above: Performed By: #### M G, HS TROP, DDIMER, TSH3, CMP, BNP, CBC, [id number], PTT, PT #### [address] Creatinine Clr Calc Pharmacy 98.47 Normal [facility] Comment on above: Result Comment: PERF ORMED BY: [place] [address] PATHOLOGIST SEARCH ENGINE OPTIMIZATION STRATEGIST KELVIN HOLMAN M.D. Performed By: #### M G, HS TROP, DDIMER, TSH3, CMP, BNP, CBC, [id number], PTT, PT #### [address] GFR/1.73 sq M.predicted MDRD (S/P/Bld) [Vol rate/Area] mL/min/{1.73_m2} Normal [facility] Comment on above: Performed By: #### M G, HS TROP, DDIMER, TSH3, CMP, BNP, CBC, [id number], PTT, PT #### [address] Glucose [Mass/Vol] 79 mg/dL Normal 70-100 [facility] Comment on above: Result Comment: [facility] Glucose Reference Range is dependent on time and content of last meal. Glucose of more than 200 mg/dL in a nonstressed, ambulatory subject supports the diagnosis of Diabetes Mellitus. ADA recommended reference range Performed By: #### M G, HS TROP, DDIMER, TSH3, CMP, BNP, CBC, [id number], PTT, PT #### [facility] [address] Potassium [Moles/Vol] 3.3 mmol/L Low 3.5-5.1 [facility] Comment on above: Performed By: #### M G, HS TROP, DDIMER, TSH3, CMP, BNP, CBC, [id number], PTT, PT #### [facility] [address] Sodium [Moles/Vol] 138 mmol/L Normal 136-145 [facility] Comment on above: Performed By: #### M G, HS TROP, DDIMER, TSH3, CMP, BNP, CBC, [id number], PTT, PT #### [address] Urea nitrogen [Mass/Vol] 7 mg/dL Normal 7-25 [facility] Comment on above: Performed By: #### M G, HS TROP, DDIMER, TSH3, CMP, BNP, CBC, [id number], PTT, PT #### [address] CNPNon 01-04-2025 CNPN Normal [facility] Complete Blood Count Auto Di ffon 01-04-2025 Basophils (Bld) [#/Vol] 0.0 10*3/uL Normal 0.0-0.2 [facility] Comment on above: Result Comment: PERF ORMED BY: [place] [address] PATHOLOGIST SEARCH ENGINE OPTIMIZATION STRATEGIST KELVIN HOLMAN M.D. Performed By: #### M G, HS TROP, DDIMER, TSH3, CMP, BNP, CBC, [id number], PTT, PT #### [address] Basophils/100 WBC (Bld) 0.3 % Normal . [facility] Comment on above: Performed By: #### M G, HS TROP, DDIMER, TSH3, CMP, BNP, CBC, [id number], PTT, PT #### [address] Eosinophils (Bld) [#/Vol] 0.5 10*3/uL High 0.0-0.45 [facility] Comment on above: Performed By: #### M G, HS TROP, DDIMER, TSH3, CMP, BNP, CBC, [id number], PTT, PT #### [address] Eosinophils/100 WBC (Bld) 3.6 % Normal . [facility] Comment on above: Performed By: #### M G, HS TROP, DDIMER, TSH3, CMP, BNP, CBC, [id number], PTT, PT #### [address] Erythrocyte distribution width (RBC) [Ratio] 16.1 % High 12.0-14.8 [facility] Comment on above: Performed By: #### M G, HS TROP, DDIMER, TSH3, CMP, BNP, CBC, [id number], PTT, PT #### [address] Hematocrit (Bld) [Volume fraction] 28.5 % Low 38.8-50.0 [facility] Comment on above: Performed By: #### M G, HS TROP, DDIMER, TSH3, CMP, BNP, CBC, [id number], PTT, PT #### [address] Hemoglobin (Bld) [Mass/Vol] 9.0 g/dL Low 13.0-17.0 [facility] Comment on above: Performed By: #### M G, HS TROP, DDIMER, TSH3, CMP, BNP, CBC, [id number], PTT, PT #### [address] Lymphocytes (Bld) [#/Vol] 1.1 10*3/uL Normal 1.00-4.8 [facility] Comment on above: Performed By: #### M G, HS TROP, DDIMER, TSH3, CMP, BNP, CBC, [id number], PTT, PT #### [address] Lymphocytes/100 WBC (Bld) 7.5 % Normal . [facility] Comment on above: Performed By: #### M G, HS TROP, DDIMER, TSH3, CMP, BNP, CBC, [id number], PTT, PT #### [address] MCH (RBC) [Entitic mass] 26.7 pg Low 27.5-35.2 [facility] Comment on above: Performed By: #### M G, HS TROP, DDIMER, TSH3, CMP, BNP, CBC, [id number], PTT, PT #### [address] MCV (RBC) [Entitic vol] 84.2 fL Normal 83.5-101 [facility] Comment on above: Performed By: #### M G, HS TROP, DDIMER, TSH3, CMP, BNP, CBC, [id number], PTT, PT #### [address] Mean Corpuscular HGB Conc 31.8 g/dL Low 32.5-35.6 [facility] Comment on above: Performed By: #### M G, HS TROP, DDIMER, TSH3, CMP, BNP, CBC, [id number], PTT, PT #### [address] Monocytes (Bld) [#/Vol] 0.8 10*3/uL Normal 0.0-0.8 [facility] Comment on above: Performed By: #### M G, HS TROP, DDIMER, TSH3, CMP, BNP, CBC, [id number], PTT, PT #### [address] Monocytes/100 WBC (Bld) 5.4 % Normal . [facility] Comment on above: Performed By: #### M G, HS TROP, DDIMER, TSH3, CMP, BNP, CBC, [id number], PTT, PT #### [address] Neutrophils (Bld) [#/Vol] 12.1 10*3/uL High 1.8-7.7 [facility] Comment on above: Performed By: #### M G, HS TROP, DDIMER, TSH3, CMP, BNP, CBC, [id number], PTT, PT #### [address] Neutrophils/100 WBC (Bld) 83.2 % Normal . [facility] Comment on above: Performed By: #### M G, HS TROP, DDIMER, TSH3, CMP, BNP, CBC, [id number], PTT, PT #### [address] NRBC% 0.0 /100{WBC} Normal 0-0.5 [facility] Comment on above: Performed By: #### M G, HS TROP, DDIMER, TSH3, CMP, BNP, CBC, [id number], PTT, PT #### [address] Platelet mean volume (Bld) [Entitic vol] 7.9 fL Normal 6.6-10.1 [facility] Comment on above: Performed By: #### M G, HS TROP, DDIMER, TSH3, CMP, BNP, CBC, [id number], PTT, PT #### [address] Platelets (Bld) [#/Vol] 281 10*3/uL Normal 150-450 [facility] Comment on above: Performed By: #### M G, HS TROP, DDIMER, TSH3, CMP, BNP, CBC, [id number], PTT, PT #### [address] RBC (Bld) [#/Vol] 3.38 10*6/uL Low 3.90-5.60 [facility] Comment on above: Performed By: #### M G, HS TROP, DDIMER, TSH3, CMP, BNP, CBC, [id number], PTT, PT #### [address] WBC (Bld) [#/Vol] 14.5 10*3/uL High 4.1-10.5 [facility] Comment on above: Performed By: #### M G, HS TROP, DDIMER, TSH3, CMP, BNP, CBC, [id number], PTT, PT #### [address] White Blood Count 14.5 [CFU]/mL High 4.1-10.5 [facility] Comment on above: Performed By: #### M G, HS TROP, DDIMER, TSH3, CMP, BNP, CBC, [id number], PTT, PT #### [address] Magnesium [Mass/volume] in S karishma or PlasmaOrdered By: Norah Whittaker on 01-04-2025 Magnesium [Mass/Vol] 1.9 mg/dL Normal 1.9-2.7 [facility] Comment on above: Result Comment: PERF ORMED BY: [place] [address] PATHOLOGIST SEARCH ENGINE OPTIMIZATION STRATEGIST KELVIN HOLMAN M.D. Performed By: #### M G, HS TROP, DDIMER, TSH3, CMP, BNP, CBC, [id number], PTT, PT #### [address] X-ray reportOrdered By: Neri Lewis on 01-04-2025 Study report [facility] Main [place] [address] [place] [address] XRay Report Signed Patient: Jatin Koch II MR#: [id number] : 1960 Acct:[id number] Age/Sex: 64 / M ADM Date: 5 Loc: 4 Room: [address] [place] [address] Type: ADM IN Attending Dr: Norah Whittaker [...] STUDY. Impression dictated by: Neftali Lewis Jr., D.ORocky 01/04/2025 3:42 PM Dictation Location: [place] [address] Transcribed By: [facility] 01/04/25 1542 Dictated By: Neftali Lewis Jr, DO 01/04/25 1541 Signed By: 01/04/25 1542 [facility] XR chest 2V*on 01-04-2025 XR chest 2V* [facility] [place] [place] [address] XRay Report Signed Patient: Jatin Koch II MR#: [id number] : 1960 Acct:[id number] Age/Sex: 64 / M ADM Date: 01/02/25 Loc: 4 Room: [address] [place] [address] Type: ADM IN Attending Dr: Norah Whittaker [...] Jr., D.O. 01/04/2025 3:42 PM Dictation Location: [place] [address] Transcribed By: [facility] 01/04/25 1542 Dictated By: Neftali Lewis Jr, DO 01/04/25 1541 Signed By: 01/04/25 1542 Normal [facility] Basic Metabolic Panelon 12-13 Anion gap [Moles/Vol] 11.4 mmol/L Normal 6.0-15.0 [facility] Comment on above: Performed By: #### M G, HS TROP, DDIMER, TSH3, CMP, BNP, CBC, [id number], PTT, PT #### [address] Calcium [Mass/Vol] 8.0 mg/dL Low 8.6-10.3 [facility] Comment on above: Performed By: #### M G, HS TROP, DDIMER, TSH3, CMP, BNP, CBC, [id number], PTT, PT #### [facility] [address] [place] [address] Chloride [Moles/Vol] 106 mmol/L Normal 98-107 [facility] Comment on above: Performed By: #### M G, HS TROP, DDIMER, TSH3, CMP, BNP, CBC, [id number], PTT, PT #### [facility] [address] [place] [address] CO2 [Moles/Vol] 20.8 mmol/L Low 21.0-31.0 [facility] Comment on above: Performed By: #### M G, HS TROP, DDIMER, TSH3, CMP, BNP, CBC, [id number], PTT, PT #### [address] Creatinine [Mass/Vol] 0.69 mg/dL Low 0.70-1.30 [facility] Comment on above: Performed By: #### M G, HS TROP, DDIMER, TSH3, CMP, BNP, CBC, [id number], PTT, PT #### [facility] [address] Creatinine Clr Calc Pharmacy 112.62 Normal [facility] Comment on above: Result Comment: PERF ORMED BY: [place] [address] PATHOLOGIST SEARCH ENGINE OPTIMIZATION STRATEGIST KELVIN HOLMAN M.D. Performed By: #### M G, HS TROP, DDIMER, TSH3, CMP, BNP, CBC, [id number], PTT, PT #### [facility] [address] [place] [address] [place] GFR/1.73 sq M.predicted MDRD (S/P/Bld) [Vol rate/Area] mL/min/{1.73_m2} Normal [facility] Comment on above: Performed By: #### M G, HS TROP, DDIMER, TSH3, CMP, BNP, CBC, [id number], PTT, PT #### [place] [address] [place] Glucose [Mass/Vol] 136 mg/dL High 70-100 [facility] Comment on above: Result Comment: [place] Glucose Reference Range is dependent on time and content of last meal. Glucose of more than 200 mg/dL in a nonstressed, ambulatory subject supports the diagnosis of Diabetes Mellitus. ADA recommended reference range Performed By: #### M G, HS TROP, DDIMER, TSH3, CMP, BNP, CBC, [id number], PTT, PT #### [facility] [address] Potassium [Moles/Vol] 4.2 mmol/L Normal 3.5-5.1 [facility] Comment on above: Performed By: #### M G, HS TROP, DDIMER, TSH3, CMP, BNP, CBC, [id number], PTT, PT #### [facility] [address] Sodium [Moles/Vol] 134 mmol/L Low 136-145 [facility] Comment on above: Performed By: #### M G, HS TROP, DDIMER, TSH3, CMP, BNP, CBC, [id number], PTT, PT #### [address] Urea nitrogen [Mass/Vol] 9 mg/dL Normal 7-25 [facility] Comment on above: Performed By: #### M G, HS TROP, DDIMER, TSH3, CMP, BNP, CBC, [id number], PTT, PT #### [address] CNPNon 01-03-2025 CNPN Normal [facility] Complete Blood Count Auto Di ffon 01-03-2025 Basophils (Bld) [#/Vol] 0.0 10*3/uL Normal 0.0-0.2 [facility] Comment on above: Result Comment: PERF ORMED BY: [place] [address] PATHOLOGIST SEARCH ENGINE OPTIMIZATION STRATEGIST KELVIN HOLMAN M.D. Performed By: #### M G, HS TROP, DDIMER, TSH3, CMP, BNP, CBC, [id number], PTT, PT #### [address] Basophils/100 WBC (Bld) 0.2 % Normal . [facility] Comment on above: Performed By: #### M G, HS TROP, DDIMER, TSH3, CMP, BNP, CBC, [id number], PTT, PT #### [address] Eosinophils (Bld) [#/Vol] 0.0 10*3/uL Normal 0.0-0.45 [facility] Comment on above: Performed By: #### M G, HS TROP, DDIMER, TSH3, CMP, BNP, CBC, [id number], PTT, PT #### [address] Eosinophils/100 WBC (Bld) 0.3 % Normal . [facility] Comment on above: Performed By: #### M G, HS TROP, DDIMER, TSH3, CMP, BNP, CBC, [id number], PTT, PT #### [address] Erythrocyte distribution width (RBC) [Ratio] 15.7 % High 12.0-14.8 [facility] Comment on above: Performed By: #### M G, HS TROP, DDIMER, TSH3, CMP, BNP, CBC, [id number], PTT, PT #### [address] Hematocrit (Bld) [Volume fraction] 28.7 % Low 38.8-50.0 [facility] Comment on above: Performed By: #### M G, HS TROP, DDIMER, TSH3, CMP, BNP, CBC, [id number], PTT, PT #### [address] Hemoglobin (Bld) [Mass/Vol] 9.4 g/dL Low 13.0-17.0 [facility] Comment on above: Performed By: #### M G, HS TROP, DDIMER, TSH3, CMP, BNP, CBC, [id number], PTT, PT #### [address] Lymphocytes (Bld) [#/Vol] 0.7 10*3/uL Low 1.00-4.8 [facility] Comment on above: Performed By: #### M G, HS TROP, DDIMER, TSH3, CMP, BNP, CBC, [id number], PTT, PT #### [address] Lymphocytes/100 WBC (Bld) 9.2 % Normal . [facility] Comment on above: Performed By: #### M G, HS TROP, DDIMER, TSH3, CMP, BNP, CBC, [id number], PTT, PT #### [address] MCH (RBC) [Entitic mass] 27.3 pg Low 27.5-35.2 [facility] Comment on above: Performed By: #### M G, HS TROP, DDIMER, TSH3, CMP, BNP, CBC, [id number], PTT, PT #### [address] MCV (RBC) [Entitic vol] 83.4 fL Low 83.5-101 [facility] Comment on above: Performed By: #### M G, HS TROP, DDIMER, TSH3, CMP, BNP, CBC, [id number], PTT, PT #### [address] Mean Corpuscular HGB Conc 32.7 g/dL Normal 32.5-35.6 [facility] Comment on above: Performed By: #### M G, HS TROP, DDIMER, TSH3, CMP, BNP, CBC, [id number], PTT, PT #### [address] Monocytes (Bld) [#/Vol] 0.3 10*3/uL Normal 0.0-0.8 [facility] Comment on above: Performed By: #### M G, HS TROP, DDIMER, TSH3, CMP, BNP, CBC, [id number], PTT, PT #### [address] Monocytes/100 WBC (Bld) 3.1 % Normal . [facility] Comment on above: Performed By: #### M G, HS TROP, DDIMER, TSH3, CMP, BNP, CBC, [id number], PTT, PT #### [address] Neutrophils (Bld) [#/Vol] 7.0 10*3/uL Normal 1.8-7.7 [facility] Comment on above: Performed By: #### M G, HS TROP, DDIMER, TSH3, CMP, BNP, CBC, [id number], PTT, PT #### [address] Neutrophils/100 WBC (Bld) 87.2 % Normal . [facility] Comment on above: Performed By: #### M G, HS TROP, DDIMER, TSH3, CMP, BNP, CBC, [id number], PTT, PT #### [address] NRBC% 0.1 /100{WBC} Normal 0-0.5 [facility] Comment on above: Performed By: #### M G, HS TROP, DDIMER, TSH3, CMP, BNP, CBC, [id number], PTT, PT #### [address] Platelet mean volume (Bld) [Entitic vol] 7.9 fL Normal 6.6-10.1 [facility] Comment on above: Performed By: #### M G, HS TROP, DDIMER, TSH3, CMP, BNP, CBC, [id number], PTT, PT #### [address] Platelets (Bld) [#/Vol] 246 10*3/uL Normal 150-450 [facility] Comment on above: Performed By: #### M G, HS TROP, DDIMER, TSH3, CMP, BNP, CBC, [id number], PTT, PT #### [address] RBC (Bld) [#/Vol] 3.44 10*6/uL Low 3.90-5.60 [facility] Comment on above: Performed By: #### M G, HS TROP, DDIMER, TSH3, CMP, BNP, CBC, [id number], PTT, PT #### [address] WBC (Bld) [#/Vol] 8.0 10*3/uL Normal 4.1-10.5 [facility] Comment on above: Performed By: #### M G, HS TROP, DDIMER, TSH3, CMP, BNP, CBC, [id number], PTT, PT #### [address] White Blood Count 8.0 [CFU]/mL Normal 4.1-10.5 [facility] Comment on above: Performed By: #### M G, HS TROP, DDIMER, TSH3, CMP, BNP, CBC, [id number], PTT, PT #### [place] [id number] [facility] MRSA - MSSA Nasal PCRon 12-13 MRSA - MSSA Nasal PCR MRSA Result MRSA Negative MSSA Result MSSA Positive Real-time PCR Test performed by real-time PCR Reference Range Reference Range for all targets = Neg / Not Detected Reference Note 20 -- Reference Note 26 -- PERFORMED BY: [place] [address] PATHOLOGIST SEARCH ENGINE OPTIMIZATION STRATEGIST KELVIN HOLMAN M.D. Normal [facility] Comment on above: Performed By: #### M G, HS TROP, DDIMER, TSH3, CMP, BNP, CBC, [id number], PTT, PT #### [address] No Panel InformationOrdered By: Norah Whittaker on 01-03-2025 Nasal Screen MRSA/MSSA [facility] X-ray reportOrdered By: Matt Arroyo on 01-03-2025 Study report [facility] [place] [address] XRay Report Signed Patient: Jatin Koch II MR#: [id number] : 1960 Acct:[id number] Age/Sex: 64 / M ADM Date: 5 Loc: Room: [address] [place] [address] Type: ADM IN Attending Dr: Norah Whittaker [...] Arroyo M.D. 01/03/2025 12:31 PM Dictation Location: [place] [address] Transcribed By: [facility] 01/03/25 1231 Dictated By: Marcell Arroyo MD 01/03/25 1230 Signed By: 01/03/25 [facility] Work Phone: XR chest 2V*on 01-03-2025 XR chest 2V* [facility] [place] [address] XRay Report Signed Patient: Jatin Koch II MR#: [id number] : 1960 Acct:[id number] Age/Sex: 64 / M ADM Date: 01/02/25 Loc: Room: [address] [place] [address] Type: ADM IN Attending Dr: Norah Whittaker [...] Arroyo M.D. 01/03/2025 12:31 PM Dictation Location: [place] [address] Transcribed By: [facility] 01/03/25 1231 Dictated By: Marcell Arroyo MD 01/03/25 1230 Signed By: 01/03/25 1231 Normal [facility] Alanine aminotransferase [En zymatic activity/volume] in Serum or PlasmaOrdered By: Dominic Ryder on 01-02-2025 ALT [Catalytic activity/Vol] 9 U/L Normal 7-52 [facility] Comment on above: Performed By: #### M G, HS TROP, DDIMER, TSH3, CMP, BNP, CBC, [id number], PTT, PT #### [facility] [address] [place] [address] [place] Albumin [Mass/volume] in Ser um or Plasma by Bromocresol green (BCG) dye binding methoOrdered By: Dominic Ryder on 01-02-2025 Albumin BCG dye [Mass/Vol] 3.0 g/dL Low 3.5-5.7 [facility] Alkaline phosphatase [Enzyma tic activity/volume] in Serum or PlasmaOrdered By: Dominic Ryder on 01-02-2025 ALP [Catalytic activity/Vol] 59 U/L Normal 34-104 [facility] Comment on above: Performed By: #### M G, HS TROP, DDIMER, TSH3, CMP, BNP, CBC, [id number], PTT, PT #### [facility] [address] [place] [address] [place] Aspartate aminotransferase [ Enzymatic activity/volume] in Serum or PlasmaOrdered By: Dominic Ryder on 01-02-2025 AST [Catalytic activity/Vol] 13 U/L Normal 13-39 [facility] Comment on above: Performed By: #### M G, HS TROP, DDIMER, TSH3, CMP, BNP, CBC, [id number], PTT, PT #### [facility] [address] BNP ser/plasOrdered By: Skylar Ryder on 01-02-2025 Natriuretic peptide B (Bld) [Mass/Vol] 44.0 pg/mL Normal 5-100 [facility] Comment on above: Result Comment: PERF ORMED BY: [place] [address] PATHOLOGIST SEARCH ENGINE OPTIMIZATION STRATEGIST KELVIN HOLMAN M.D. Performed By: #### M G, HS TROP, DDIMER, TSH3, CMP, BNP, CBC, [id number], PTT, PT #### [address] Basophils [#/volume] in Bloo d by Automated countOrdered By: Dominic Ryder on 01-02-2025 Basophils (Bld) [#/Vol] 0.1 10*3/uL Normal 0.0-0.2 [facility] Comment on above: Result Comment: PERF ORMED BY: [place] [address] PATHOLOGIST SEARCH ENGINE OPTIMIZATION STRATEGIST KELVIN HOLMAN M.D. Performed By: #### M G, HS TROP, DDIMER, TSH3, CMP, BNP, CBC, [id number], PTT, PT #### [address] Basophils/100 leukocytes in Blood by Automated countOrdered By: Dominic Ryder on 01-02-2025 Basophils/100 WBC (Bld) 0.4 % Normal . [facility] Comment on above: Performed By: #### M G, HS TROP, DDIMER, TSH3, CMP, BNP, CBC, [id number], PTT, PT #### [address] Bilirubin.total [Mass/volume ] in Serum or PlasmaOrdered By: Dominic Ryder on 01-02-2025 Bilirubin [Mass/Vol] 0.6 mg/dL Normal 0.3-1.0 [facility] Comment on above: Performed By: #### M G, HS TROP, DDIMER, TSH3, CMP, BNP, CBC, [id number], PTT, PT #### [address] Blood Cultureon 01-02-2025 Bacteria identified Cx Nom (Bld) NO GROWTH 5 DAYS PERFORMED BY: [place] [id number] PATHOLOGIST SEARCH ENGINE OPTIMIZATION STRATEGIST KELVIN HOLMAN M.D. Normal [facility] Comment on above: Performed By: #### M G, HS TROP, DDIMER, TSH3, CMP, BNP, CBC, [id number], PTT, PT #### [facility] [address] Bacteria identified Cx Nom (Bld) NO GROWTH 5 DAYS PERFORMED BY: [facility] [address] [place] [address] PATHOLOGIST SEARCH ENGINE OPTIMIZATION STRATEGIST KELVIN HOLMAN M.D. Normal [facility] Comment on above: Performed By: #### M G, HS TROP, DDIMER, TSH3, CMP, BNP, CBC, [id number], PTT, PT #### [facility] [address] [place], [place] [address] CBC W Auto Differential pane l (Bld)on 01-02-2025 Basophils (Bld) [#/Vol] 0.04 10*3/uL Normal <0.11 [facility] Comment on above: Order Comment: Speci men Type: BLOOD SPECIMENOrdering Facility: [facility] Address: [address] [place] [address] Performed By: #### 5 7021-8 ####[facility] LABCLIA [id number] [place] [address] Basophils/100 WBC (Bld) 0.3 % Normal [facility] Comment on above: Order Comment: Speci men Type: BLOOD SPECIMENOrdering Facility: [facility] Address: [address] [place] [address] Performed By: #### 5 7021-8 ####[facility] LABCLIA [id number] [place] [address] Differential cell count method Nom (Bld) Auto Normal [facility] Comment on above: Order Comment: Speci men Type: BLOOD SPECIMENOrdering Facility: [facility] Address: [address] [place] [address] Performed By: #### 5 7021-8 ####[facility] LABCLIA [id number] [place] [address] Eosinophils (Bld) [#/Vol] 0.52 10*3/uL High <0.46 [facility] Comment on above: Order Comment: Speci men Type: BLOOD SPECIMENOrdering Facility: [facility] Address: [address] [place] [address] Performed By: #### 5 7021-8 ####[facility] LABCLIA [id number] [place] [address] Eosinophils/100 WBC (Bld) 3.8 % Normal [facility] Comment on above: Order Comment: Speci men Type: BLOOD SPECIMENOrdering Facility: [facility] Address: [address] [place] [address] Performed By: #### 5 7021-8 ####[facility] LABCLIA [id number] [place] [address] Erythrocyte distribution width (RBC) [Ratio] 14.6 % Normal 11.5-15.0 [facility] Comment on above: Order Comment: Speci men Type: BLOOD SPECIMENOrdering Facility: [facility] Address: [address] [place] [address] Performed By: #### 5 7021-8 ####[facility] LABCLIA [id number] [place] [address] Hematocrit (Bld) [Volume fraction] 34.0 % Low 39.0-51.0 [facility] Comment on above: Order Comment: Speci men Type: BLOOD SPECIMENOrdering Facility: [facility] Address: [address] [place] [address] Performed By: #### 5 7021-8 ####[facility] LABCLIA [id number] [place] [address] Hemoglobin (Bld) [Mass/Vol] 10.5 g/dL Low 13.0-17.0 [facility] Comment on above: Order Comment: Speci men Type: BLOOD SPECIMENOrdering Facility: [facility] Address: [address] [place] [address] Performed By: #### 5 7021-8 ####[facility] LABCLIA [id number] [place] [address] Immature granulocytes (Bld) [#/Vol] 0.09 10*3/uL Normal <0.10 [facility] Comment on above: Order Comment: Speci men Type: BLOOD SPECIMENOrdering Facility: [facility] Address: [address] [place] [address] Performed By: #### 5 7021-8 ####[facility] LABCLIA [id number] [place] [address] Immature granulocytes/100 WBC (Bld) 0.7 % Normal [facility] Comment on above: Order Comment: Speci men Type: BLOOD SPECIMENOrdering Facility: [facility] Address: [address] [place] [address] Performed By: #### 5 7021-8 ####[facility] LABCLIA [id number] [place] [address] Lymphocytes (Bld) [#/Vol] 1.21 10*3/uL Normal 1.00-4.00 [facility] Comment on above: Order Comment: Speci men Type: BLOOD SPECIMENOrdering Facility: [facility] Address: [address] [place] [address] Performed By: #### 5 7021-8 ####[facility] LABCLIA [id number] [place] [address] Lymphocytes/100 WBC (Bld) 8.9 % Normal [facility] Comment on above: Order Comment: Speci men Type: BLOOD SPECIMENOrdering Facility: [facility] Address: [address] [place] [address] Performed By: #### 5 7021-8 ####[facility] LABCLIA [id number] [place] [address] MCH (RBC) [Entitic mass] 26.6 pg Normal 26.0-34.0 [facility] Comment on above: Order Comment: Speci men Type: BLOOD SPECIMENOrdering Facility: [facility] Address: [address] [place] [address] Performed By: #### 5 7021-8 ####[facility] LABCLIA [id number] [place] [address] MCHC (RBC) [Mass/Vol] 30.9 g/dL Normal 30.5-36.0 [facility] Comment on above: Order Comment: Speci men Type: BLOOD SPECIMENOrdering Facility: [facility] Address: [address] [place] [address] Performed By: #### 5 7021-8 ####[facility] LABCLIA [id number] [place] [address] MCV (RBC) [Entitic vol] 86.1 fL Normal 80.0-100.0 [facility] Comment on above: Order Comment: Speci men Type: BLOOD SPECIMENOrdering Facility: [facility] Address: [address] [place] [address] Performed By: #### 5 7021-8 ####[facility] LABCLIA [id number] [place] [address] Monocytes (Bld) [#/Vol] 0.63 10*3/uL Normal <0.87 [facility] Comment on above: Order Comment: Speci men Type: BLOOD SPECIMENOrdering Facility: [facility] Address: [address] [place] [address] Performed By: #### 5 7021-8 ####[facility] LABCLIA [id number] [place] [address] Monocytes/100 WBC (Bld) 4.6 % Normal [facility] Comment on above: Order Comment: Speci men Type: BLOOD SPECIMENOrdering Facility: [facility] Address: [address] [place] [address] Performed By: #### 5 7021-8 ####[facility] LABCLIA [id number] [place] [address] Neutrophils (Bld) [#/Vol] 11.15 10*3/uL High 1.45-7.50 [facility] Comment on above: Order Comment: Speci men Type: BLOOD SPECIMENOrdering Facility: [facility] Address: [address] [place] [address] Performed By: #### 5 7021-8 ####[facility] LABCLIA [id number] [place] [address] Neutrophils/100 WBC (Bld) 81.7 % Normal [facility] Comment on above: Order Comment: Speci men Type: BLOOD SPECIMENOrdering Facility: [facility] Address: [address] [place] [address] Performed By: #### 5 7021-8 ####[facility] LABCLIA [id number] [place] [address] Nucleated RBC (Bld) [#/Vol] 10*3/uL Normal <0.01 [facility] Comment on above: Order Comment: Speci men Type: BLOOD SPECIMENOrdering Facility: [facility] Address: [address] [place] [address] Performed By: #### 5 7021-8 ####[facility] LABCLIA [id number] [place] [address] Nucleated RBC/100 WBC (Bld) [Ratio] 0.0 /100 WBC Normal [facility] Comment on above: Order Comment: Speci men Type: BLOOD SPECIMENOrdering Facility: [facility] Address: [address] [place] [address] Performed By: #### 5 7021-8 ####[facility] LABCLIA [id number] [place] [address] Platelet mean volume (Bld) [Entitic vol] 9.3 fL Normal 9.0-12.7 [facility] Comment on above: Order Comment: Speci men Type: BLOOD SPECIMENOrdering Facility: [facility] Address: [address] [place] [address] Performed By: #### 5 7021-8 ####[facility] LABCLIA [id number] [place] [address] Platelets (Bld) [#/Vol] 312 10*3/uL Normal 150-400 [facility] Comment on above: Order Comment: Speci men Type: BLOOD SPECIMENOrdering Facility: [facility] Address: [address] [place] [address] Performed By: #### 5 7021-8 ####[facility] LABIA [id number] [place] [address] RBC (Bld) [#/Vol] 3.95 10*6/uL Low 4.20-6.00 [facility] Comment on above: Order Comment: Speci men Type: BLOOD SPECIMENOrdering Facility: [facility] Address: [address] [place] [address] Performed By: #### 5 7021-8 ####[facility] LABIA [id number] [place] [address] WBC (Bld) [#/Vol] 13.64 10*3/uL High 3.70-11.00 [facility] Comment on above: Order Comment: Speci men Type: BLOOD SPECIMENOrdering Facility: [facility] Address: [address] [place] [address] Performed By: #### 5 7021-8 ####[facility] LABIA [id number] [place] [address] CNOVSPon 01-02-2025 CNOVSP Normal [facility] CT angio chest PE protocolon 01-02-2025 CT angio chest PE protocol [address] [place] [address] CT Scan Report Signed Patient: Jatni Koch II MR#: [id number] : 1960 Acct:[id number] Age/Sex: 64 / M ADM Date: 01/02/25 Loc: Room: 5R1769-5 Type: ADM IN Attending Dr: Norah Whittaker [...] Mccann M.D. 01/02/2025 7:42 PM Dictation Location: [place] [address] Transcribed By: [facility] 01/02/251941 Dictated By: Kirk Mccann DO 01/02/251935 Signed By: 01/02/251941 Normal [facility] CT head/brain wo nanoon 01-02 CT head/brain wo con [facility] Main [place] [address] [place] [address] CT Scan Report Signed Patient: Jatin Koch II MR#: [id number] : 1960 Acct:[id number] Age/Sex: 64 / M ADM Date: 01/02/25 Loc: ER Room: Type: [facility] ER Attending Dr: Copies to: Dominic Ryder [...] Mccann M.D. 01/02/2025 3:04 PM Dictation Location: [place] [address] Transcribed By: [facility] 01/02/25 1504 Dictated By: Kirk Mccann DO 01/02/25 1503 Signed By: 01/02/25 150 Normal [facility] Calcium [Mass/volume] in Ser um or PlasmaOrdered By: Dominic Ryder on 01-02-2025 Calcium [Mass/Vol] 8.3 mg/dL Low 8.6-10.3 [facility] Comment on above: Performed By: #### M G, HS TROP, DDIMER, TSH3, CMP, BNP, CBC, [id number], PTT, PT #### [facility] [address] Carbon dioxide, total [Moles /volume] in Serum or PlasmaOrdered By: Dominic Ryder on 01-02-2025 CO2 [Moles/Vol] 19.4 mmol/L Low 21.0-31.0 [facility] Comment on above: Performed By: #### M G, HS TROP, DDIMER, TSH3, CMP, BNP, CBC, [id number], PTT, PT #### [facility] [address] Chloride [Moles/volume] in S karishma or PlasmaOrdered By: Dominic Ryder on 01-02-2025 Chloride [Moles/Vol] 107 mmol/L Normal 98-107 [facility] Comment on above: Performed By: #### M G, HS TROP, DDIMER, TSH3, CMP, BNP, CBC, [id number], PTT, PT #### [address] Complete Blood Count Auto Di ffon 01-02-2025 Mean Corpuscular HGB Conc 32.0 g/dL Low 32.5-35.6 [facility] Comment on above: Performed By: #### M G, HS TROP, DDIMER, TSH3, CMP, BNP, CBC, [id number], PTT, PT #### [address] Monocytes/100 WBC (Bld) 24.21 % High 0.00-20.00 [facility] Comment on above: Result Comment: For adults in ED, MDW > 20.0 may be associated with a higher risk of sepsis during the first 12 hrs of hospital admission Performed By: #### M G, HS TROP, DDIMER, TSH3, CMP, BNP, CBC, [id number], PTT, PT #### [address] NRBC% 0.0 /100{WBC} Normal 0-0.5 [facility] Comment on above: Performed By: #### M G, HS TROP, DDIMER, TSH3, CMP, BNP, CBC, [id number], PTT, PT #### [facility] [address] White Blood Count 15.5 [CFU]/mL High 4.1-10.5 [facility] Comment on above: Performed By: #### M G, HS TROP, DDIMER, TSH3, CMP, BNP, CBC, [id number], PTT, PT #### [facility] [address] Comprehensive Metabolic Pane paul 01-02-2025 Albumin [Mass/Vol] 3.0 g/dL Low 3.5-5.7 [facility] Comment on above: Performed By: #### M G, HS TROP, DDIMER, TSH3, CMP, BNP, CBC, [id number], PTT, PT #### [address] Creatinine Clr Calc Pharmacy 99.34 Normal [facility] Comment on above: Performed By: #### M G, HS TROP, DDIMER, TSH3, CMP, BNP, CBC, [id number], PTT, PT #### [address] GFR/1.73 sq M.predicted MDRD (S/P/Bld) [Vol rate/Area] mL/min/{1.73_m2} Normal [facility] Comment on above: Performed By: #### M G, HS TROP, DDIMER, TSH3, CMP, BNP, CBC, [id number], PTT, PT #### [facility] [address] Comprehensive metabolic 2000 panelon 01-02-2025 Albumin [Mass/Vol] 3.6 g/dL Low 3.9-4.9 [facility] Comment on above: Order Comment: Speci men Type: BLOOD SPECIMENOrdering Facility: [facility] Address: [address] [place] [address] Performed By: #### 2 4323-8, ####[facility] LABCLIA [id number] [place] [address] ALP [Catalytic activity/Vol] 75 U/L Normal 38-113 [facility] Comment on above: Order Comment: Speci men Type: BLOOD SPECIMENOrdering Facility: [facility] Address: [address] [place] [address] Performed By: #### 2 4323-8, ####[facility] LABCLIA [id number] [place] [address] ALT [Catalytic activity/Vol] 12 U/L Normal 10-54 [facility] Comment on above: Order Comment: Speci men Type: BLOOD SPECIMENOrdering Facility: [facility] Address: [address] [place] [address] Performed By: #### 2 4323-8, ####[facility] LABCLIA [id number] [place] [address] Anion gap [Moles/Vol] 12 mmol/L Normal 8-15 [facility] Comment on above: Order Comment: Speci men Type: BLOOD SPECIMENOrdering Facility: [facility] Address: [address] [place] [address] Performed By: #### 2 4323-8, ####[facility] LABCLIA [id number] [place] [address] AST [Catalytic activity/Vol] 12 U/L Low 14-40 [facility] Comment on above: Order Comment: Speci men Type: BLOOD SPECIMENOrdering Facility: [facility] Address: [address] [place] [address] Performed By: #### 2 4323-8, ####[facility] LABCLIA [id number] [place] [address] Bilirubin [Mass/Vol] 0.3 mg/dL Normal 0.2-1.3 [facility] Comment on above: Order Comment: Speci men Type: BLOOD SPECIMENOrdering Facility: [facility] Address: [address] [place] [address] Performed By: #### 2 4323-8, ####[facility] LABCLIA [id number] [place] [address] Calcium [Mass/Vol] 9.6 mg/dL Normal 8.5-10.2 [facility] Comment on above: Order Comment: Speci men Type: BLOOD SPECIMENOrdering Facility: [facility] Address: [address] [place], [place] [address] Performed By: #### 2 4323-8, ####[facility] LABCLIA [id number] [place] [address] Chloride [Moles/Vol] 100 mmol/L Normal 98-107 [facility] Comment on above: Order Comment: Speci men Type: BLOOD SPECIMENOrdering Facility: [facility] Address: [address] [place] [address] Performed By: #### 2 4323-8, ####[facility] LABCLIA [id number] [place] [address] CO2 [Moles/Vol] 22 mmol/L Normal 22-30 [facility] Comment on above: Order Comment: Speci men Type: BLOOD SPECIMENOrdering Facility: [facility] Address: [address] [place] [address] Performed By: #### 2 4323-8, ####[facility] LABCLIA [id number] [place] [address] Creatinine [Mass/Vol] 0.77 mg/dL Normal 0.73-1.22 [facility] Comment on above: Order Comment: Speci men Type: BLOOD SPECIMENOrdering Facility: [facility] Address: [address] [place] [address] Performed By: #### 2 4323-8, ####[facility] LABCLIA [id number] [place] [address] eGFRcr SerPlBld CKD-EPI 2020 101 mL/min/1.73m??? Normal >=60 [facility] Comment on above: Order Comment: Speci della Type: BLOOD SPECIMENOrdering Facility: [facility] Address: [address] [place] [address] Result Comment: Carly mated Glomerular Filtration Rate [...] actual GFR. Performed By: #### 2 4323-8, ####[facility] LABCLIA [id number] [place] [address] Glucose [Mass/Vol] 104 mg/dL High 74-99 [facility] Comment on above: Order Comment: Ange hull Type: BLOOD SPECIMENOrdering Facility: [facility] Address: [address] [place] [address] Result Comment: The [place] [employer] (ADA) provides guidance for cutoff [...] Standards of Medical Care in Diabetes 2016, [place] [employer]. Diabetes Care. 2016.39(Suppl 1). Performed By: #### 2 4323-8, 33449-6 ####[facility] LABCLIA [id number] [place] [address] Potassium [Moles/Vol] 3.6 mmol/L Low 3.7-5.1 [facility] Comment on above: Order Comment: Speci men Type: BLOOD SPECIMENOrdering Facility: [facility] Address: [address] [place], [place] [address] Performed By: #### 2 4323-8, ####[facility] LABCLIA [id number] [place] [address] Protein [Mass/Vol] 7.2 g/dL Normal 6.3-8.0 [facility] Comment on above: Order Comment: Speci men Type: BLOOD SPECIMENOrdering Facility: [facility] Address: [address] [place] [address] Performed By: #### 2 4323-8, ####[facility] LABCLIA [id number] [place] [address] Sodium [Moles/Vol] 134 mmol/L Low 136-144 [facility] Comment on above: Order Comment: Speci men Type: BLOOD SPECIMENOrdering Facility: [facility] Address: [address] [place] [address] Performed By: #### 2 432-8, ####[facility] LABCLIA [id number] [place] [address] Urea nitrogen [Mass/Vol] 9 mg/dL Normal 9-24 [facility] Comment on above: Order Comment: Speci men Type: BLOOD SPECIMENOrdering Facility: [facility] Address: [address] [place] [address] Performed By: #### 2 4323-8, ####[facility] LABCLIA [id number] [place] [address] Creatinine [Mass/volume] in Serum or PlasmaOrdered By: Dominic Ryder on 01-02-2025 Creatinine [Mass/Vol] 0.79 mg/dL Normal 0.70-1.30 [facility] Comment on above: Performed By: #### M G, HS TROP, DDIMER, TSH3, CMP, BNP, CBC, [id number], PTT, PT #### [place] [id number] [place] D-Dimer High Sensitivityon 0 01-02-2025 D-Dimer High Sensitivity 1250 ng/mL High 0-243 [facility] Comment on above: Result Comment: [...] coagulation studies. Please contact the laboratory at [phone] for redraw instructions. PERFORMED BY: [place] [address] PATHOLOGIST SEARCH ENGINE OPTIMIZATION STRATEGIST KELVIN HOLMAN M.D. Performed By: #### M G, HS TROP, DDIMER, TSH3, CMP, BNP, CBC, [id number], PTT, PT #### [place] [id number] [facility] ECG 12 lead ECGon 01-02-2025 ECG 12 lead ECG [facility] [place] [address] Electrocardiograph Report Signed Patient: Jatin Koch II MR#: [id number] : 1960 Acct:[id number] Age/Sex: 64 / M ADM Date: 01/02/25 Loc: ER Room: Type: [facility] ER Attending Dr: Ordering Provider: Dominic Ryder [...] ventricular-paced rhythm Confirmed by Home RUSSO DO ([id number]) on 01/02/2025 4:39:33 PM Referred By: Electronically Signed By: Home RUSSO DO Transcribed By: MUS Signed By Home Russo DO 0 01/02/25 1639 Normal [facility] Eosinophils [#/volume] in Bl ood by Automated countOrdered By: Dominic Ryder on 01-02-2025 Eosinophils (Bld) [#/Vol] 0.1 10*3/uL Normal 0.0-0.45 [facility] Comment on above: Performed By: #### M G, HS TROP, DDIMER, TSH3, CMP, BNP, CBC, [id number], PTT, PT #### [facility] [address] [place] [address] Eosinophils/100 leukocytes i n Blood by Automated countOrdered By: Dominic Ryder on 01-02-2025 Eosinophils/100 WBC (Bld) 1.0 % Normal . [facility] Comment on above: Performed By: #### M G, HS TROP, DDIMER, TSH3, CMP, BNP, CBC, [id number], PTT, PT #### [facility] [address] Erythrocyte distribution wid th [Ratio] by Automated countOrdered By: Dominic Ryder on 01-02-2025 Erythrocyte distribution width (RBC) [Ratio] 15.7 % High 12.0-14.8 [facility] Comment on above: Performed By: #### M G, HS TROP, DDIMER, TSH3, CMP, BNP, CBC, [id number], PTT, PT #### [facility] [address] Erythrocytes [#/volume] in B lood by Automated countOrdered By: Dominic Ryder on 01-02-2025 RBC (Bld) [#/Vol] 3.83 10*6/uL Low 3.90-5.60 [facility] Comment on above: Performed By: #### M G, HS TROP, DDIMER, TSH3, CMP, BNP, CBC, [id number], PTT, PT #### [facility] [address] Fibrin D-dimer [Presence] in Platelet poor plasma by Latex agglutinationOrdered By: Dominic Ryder on 01-02-2025 Fibrin D-dimer LA Ql (PPP) 1250 ng/mL High 0-243 [facility] Comment on above: The reference range [...] coagulation studies. Please contact the laboratory at [phone] for redraw instructions. Folate [Mass/volume] in Seru m or PlasmaOrdered By: Dominic Ryder on 01-02-2025 Folate [Mass/Vol] 29.0 ng/mL >5.9 [facility] Comment on above: Folate reference ran ge: >5.9 ng/mlThe WHO technical consultation on folate and vitamin [id number] has determined that folate concentrations lessthan 4 ng/ml are considered deficient. Glucose [Mass/volume] in Ser um or PlasmaOrdered By: Dominic Ryder on 01-02-2025 Glucose [Mass/Vol] 107 mg/dL High 70-100 [facility] Comment on above: ADA recommended refe rence rangeRandom Glucose Reference Range is dependent on time and content of last meal. Glucose of more than 200 mg/dL in a nonstressed, ambulatory subject supports the diagnosis of Diabetes Mellitus. Result Comment: [place] Glucose Reference Range is dependent on time and content of last meal. Glucose of more than 200 mg/dL in a nonstressed, ambulatory subject supports the diagnosis of Diabetes Mellitus. ADA recommended reference range Performed By: #### M G, HS TROP, DDIMER, TSH3, CMP, BNP, CBC, [id number], PTT, PT #### [facility] [address] Hematocrit [Volume Fraction] of Blood by Automated countOrdered By: Dominic Ryder on 01-02-2025 Hematocrit (Bld) [Volume fraction] 32.0 % Low 38.8-50.0 [facility] Comment on above: Performed By: #### M G, HS TROP, DDIMER, TSH3, CMP, BNP, CBC, [id number], PTT, PT #### [address] Hemoglobin [Mass/volume] in BloodOrdered By: Dominic Ryder on 01-02-2025 Hemoglobin (Bld) [Mass/Vol] 10.3 g/dL Low 13.0-17.0 [facility] Comment on above: Performed By: #### M G, HS TROP, DDIMER, TSH3, CMP, BNP, CBC, [id number], PTT, PT #### [address] INR in Platelet poor plasma by Coagulation assayOrdered By: Dominic Rydre on 01-02-2025 INR Coag (PPP) [Relative time] 1.5 {INR} Normal [facility] Comment on above: INR Therapeutic Rang [...] HS TROP, DDIMER, TSH3, CMP, BNP, CBC, [id number], PTT, PT #### [facility] [address] [place] [address] Laboratory - Microbiology an d Antimicrobial susceptibilityOrdered By: Norah Whittaker on 01-02-2025 Bacteria identified Cx Nom (Bld) NO GROWTH 5 DAYS [facility] Bacteria identified Cx Nom (Bld) NO GROWTH 5 DAYS [facility] Leukocytes [#/volume] correc abe for nucleated erythrocytes in Blood by Automated counOrdered By: Dominic Ryder on 01-02-2025 WBC corrected for nucl RBC Auto (Bld) [#/Vol] 15.5 10*3/uL High 4.1-10.5 [facility] Leukocytes [#/volume] in Blo od by Automated countOrdered By: Dominic Ryder on 01-02-2025 WBC (Bld) [#/Vol] 15.5 10*3/uL High 4.1-10.5 [facility] Comment on above: Performed By: #### M G, HS TROP, DDIMER, TSH3, CMP, BNP, CBC, [id number], PTT, PT #### [facility] [address] [place] [address] [place] Lymphocytes [#/volume] in Bl ood by Automated countOrdered By: Dominic Ryder on 01-02-2025 Lymphocytes (Bld) [#/Vol] 0.4 10*3/uL Low 1.00-4.8 [facility] Comment on above: Performed By: #### M G, HS TROP, DDIMER, TSH3, CMP, BNP, CBC, [id number], PTT, PT #### [facility] [address] [place] [address] [place] Lymphocytes/100 leukocytes i n Blood by Automated countOrdered By: Dominic Ryder on 01-02-2025 Lymphocytes/100 WBC (Bld) 2.3 % Normal . [facility] Comment on above: Performed By: #### M G, HS TROP, DDIMER, TSH3, CMP, BNP, CBC, [id number], PTT, PT #### [facility] [address] [place] [id number] [facility] MCH [Entitic mass] by Automa abe countOrdered By: Dominic Ryder on 01-02-2025 MCH (RBC) [Entitic mass] 26.8 pg Low 27.5-35.2 [facility] Comment on above: Performed By: #### M G, HS TROP, DDIMER, TSH3, CMP, BNP, CBC, [id number], PTT, PT #### [facility] [address] MCHC Auto (RBC) [Mass/Vol]Or dered By: Dominic Ryder on 01-02-2025 MCHC (RBC) [Mass/Vol] 32.0 g/dL Low 32.5-35.6 [facility] MCV [Entitic volume] by Auto mated countOrdered By: Dominic Ryder on 01-02-2025 MCV (RBC) [Entitic vol] 83.6 fL Normal 83.5-101 [facility] Comment on above: Performed By: #### M G, HS TROP, DDIMER, TSH3, CMP, BNP, CBC, [id number], PTT, PT #### [facility] [address] Magnesium SerPl-mCncon 01-02 Magnesium [Mass/Vol] 1.8 mg/dL Normal 1.7-2.3 [facility] Comment on above: Order Comment: Speci men Type: BLOOD SPECIMENOrdering Facility: [facility] Address: [address] [place] [address] Performed By: #### 2 4323-8, 47313-4 ####[facility] LABCLIA [id number] [place] [address] Magnesium [Mass/volume] in S karishma or PlasmaOrdered By: Dominic Ryder on 01-02-2025 Magnesium [Mass/Vol] 1.5 mg/dL Low 1.9-2.7 [facility] Comment on above: Result Comment: PERF ORMED BY: [place] [address] PATHOLOGIST SEARCH ENGINE OPTIMIZATION STRATEGIST KELVIN HOLMAN M.D. Performed By: #### M G, HS TROP, DDIMER, TSH3, CMP, BNP, CBC, [id number], PTT, PT #### [facility] [address] [place] [address] [place] Monocyte distribution width [Entitic volume] in Blood by AutomatedOrdered By: Dominic Ryder on 01-02-2025 Monocyte distribution width Auto (Bld) [Entitic vol] 24.21 % High 0.00-20.00 [facility] Comment on above: For adults in ED, MD W > 20.0 may be associated with a higher risk of sepsis during the first 12 hrs of hospital admission Monocytes [#/volume] in Bloo d by Automated countOrdered By: Dominic yRder on 01-02-2025 Monocytes (Bld) [#/Vol] 0.4 10*3/uL Normal 0.0-0.8 [facility] Comment on above: Performed By: #### M G, HS TROP, DDIMER, TSH3, CMP, BNP, CBC, [id number], PTT, PT #### [facility] [address] [place] [address] Monocytes/100 leukocytes in Blood by Automated countOrdered By: Dominic Ryder on 01-02-2025 Monocytes/100 WBC (Bld) 2.4 % Normal . [facility] Comment on above: Performed By: #### M G, HS TROP, DDIMER, TSH3, CMP, BNP, CBC, [id number], PTT, PT #### [facility] [address] [place] [address] [place] Neutrophils [#/volume] in Bl ood by Automated countOrdered By: Dominic Ryder on 01-02-2025 Neutrophils (Bld) [#/Vol] 14.5 10*3/uL High 1.8-7.7 [facility] Comment on above: Performed By: #### M G, HS TROP, DDIMER, TSH3, CMP, BNP, CBC, [id number], PTT, PT #### [facility] [address] [place] [address] [place] Neutrophils/100 leukocytes i n Blood by Automated countOrdered By: Dominic Ryder on 01-02-2025 Neutrophils/100 WBC (Bld) 93.9 % Normal . [facility] Comment on above: Performed By: #### M G, HS TROP, DDIMER, TSH3, CMP, BNP, CBC, [id number], PTT, PT #### [facility] [address] No Panel InformationOrdered By: Dominic Ryder on 01-02-2025 Estimated GFR (CKD-EPI) > 60.0 mL/Min [facility] Creatinine Clearance (Chem 99.34 [facility] Nucleated erythrocytes [Pres ence] in Blood by Automated countOrdered By: Dominic Ryder on 01-02-2025 Nucleated RBC Auto Ql (Bld) 0.0 /100{WBC} 0-0.5 [facility] Partial Thromboplastin Timeo n 01-02-2025 aPTT Coag (Bld) [Time] 26.1 s Normal 25.1-36.5 [facility] Comment on above: Result Comment: A he matocrit value greater than 55% may lead to inaccurate results in coagulation testing. Patients having hematocrit values >55% require a special collection tube for coagulation studies. Please contact the laboratory at [phone] for redraw instructions. Performed By: #### M G, HS TROP, DDIMER, TSH3, CMP, BNP, CBC, [id number], PTT, PT #### [facility] [address] [place] [id number] [facility] Platelet mean volume [Entiti c volume] in Blood by Automated countOrdered By: Dominic Ryder on 01-02-2025 Platelet mean volume (Bld) [Entitic vol] 7.9 fL Normal 6.6-10.1 [facility] Comment on above: Performed By: #### M G, HS TROP, DDIMER, TSH3, CMP, BNP, CBC, [id number], PTT, PT #### [facility] [address] Platelets [#/volume] in Bloo d by Automated countOrdered By: Dominic Ryder on 01-02-2025 Platelets (Bld) [#/Vol] 249 10*3/uL Normal 150-450 [facility] Comment on above: Performed By: #### M G, HS TROP, DDIMER, TSH3, CMP, BNP, CBC, [id number], PTT, PT #### [facility] [address] Potassium [Moles/volume] in Serum or PlasmaOrdered By: Dominic Ryder on 01-02-2025 Potassium [Moles/Vol] 3.7 mmol/L Normal 3.5-5.1 [facility] Comment on above: Performed By: #### M G, HS TROP, DDIMER, TSH3, CMP, BNP, CBC, [id number], PTT, PT #### [address] Protein [Mass/volume] in Ser um or PlasmaOrdered By: Dominic Ryder on 01-02-2025 Protein [Mass/Vol] 6.0 g/dL Low 6.4-8.9 [facility] Comment on above: Performed By: #### M G, HS TROP, DDIMER, TSH3, CMP, BNP, CBC, [id number], PTT, PT #### [facility] [address] [place] [id number] [facility] Prothrombin time (PT)Ordered By: Dominic Ryder on 01-02-2025 PT Coag (PPP) [Time] 17.1 s High 9.0-12.9 [facility] Comment on above: A hematocrit value g reater than 55% may lead to inaccurate results in coagulation testing. Patients having hematocrit values >55% require a special collection tube for coagulation studies. Please contact the laboratory at [phone] for redraw instructions. Result Comment: A he matocrit value greater than 55% may lead to inaccurate results in coagulation testing. Patients having hematocrit values >55% require a special collection tube for coagulation studies. Please contact the laboratory at [phone] for redraw instructions. Performed By: #### M G, HS TROP, DDIMER, TSH3, CMP, BNP, CBC, [id number], PTT, PT #### [facility] [address] Serum globulin measurement b y calculation (mass/volume)Ordered By: Dominic Ryder on 01-02-2025 Globulin (S) [Mass/Vol] 3.0 g/dL Normal [facility] Comment on above: Performed By: #### M G, HS TROP, DDIMER, TSH3, CMP, BNP, CBC, [id number], PTT, PT #### [facility] [address] Serum or plasma albumin/glob ulin mass ratioOrdered By: Dominic Ryder on 01-02-2025 Albumin/Globulin [Mass ratio] 1.0 {ratio} Normal [facility] Comment on above: Performed By: #### M G, HS TROP, DDIMER, TSH3, CMP, BNP, CBC, [id number], PTT, PT #### [facility] [address] [place] [address] Serum or plasma anion gap de terminationOrdered By: Dominic Ryder on 01-02-2025 Anion gap [Moles/Vol] 11.3 mmol/L Normal 6.0-15.[address] [facility] Comment on above: Performed By: #### M G, HS TROP, DDIMER, TSH3, CMP, BNP, CBC, [id number], PTT, PT #### [facility] [address] [place] [address] Sodium [Moles/volume] in Ser um or PlasmaOrdered By: Dominic Ryder on 01-02-2025 Sodium [Moles/Vol] 134 mmol/L Low 136-145 [facility] Comment on above: Performed By: #### M G, HS TROP, DDIMER, TSH3, CMP, BNP, CBC, [id number], PTT, PT #### [address] Thyrotropin [Units/volume] i n Serum or PlasmaOrdered By: Dominic Ryder on 01-02-2025 TSH Qn 0.92 m[IU]/L Normal 0.45-5.33 [facility] Comment on above: Result Comment: PERF ORMED BY: [place] [address] PATHOLOGIST SEARCH ENGINE OPTIMIZATION STRATEGIST KELVIN HOLMAN M.D. Performed By: #### M G, HS TROP, DDIMER, TSH3, CMP, BNP, CBC, [id number], PTT, PT #### [facility] [address] [place] [address] [place] Troponin I High Sensitivityo n 01-02-2025 Troponin I High Sensitivity 6 Normal 0-20 [facility] Comment on above: Result Comment: The Troponin units of report have been changed to meet the Chest Pain Accreditation requirement, element EC5.M1l2. Troponin units are changed from pg/ml to ng/L. Also, the decimal is removed and results are in whole numbers. PERFORMED BY: [place] [address] PATHOLOGIST SEARCH ENGINE OPTIMIZATION STRATEGIST KELVIN HOLMAN M.D. Performed By: #### M G, HS TROP, DDIMER, TSH3, CMP, BNP, CBC, [id number], PTT, PT #### [facility] [address] [place] [address] [place] Troponin I.cardiac [Mass/vol ume] in Serum or Plasma by Detection limit <= 0.01 ng/mLOrdered By: Dominic Ryder on 01-02-2025 Troponin I.cardiac DL <= 0.01 ng/mL [Mass/Vol] 6 ng/L 0-20 [facility] Comment on above: The Troponin units o f report have been changed to meet the Chest Pain Accreditation requirement, element EC5.M1l2. Troponin units are changed from pg/ml to ng/L. Also, the decimal is removed and results are in whole numbers. Urea nitrogen [Mass/volume] in Serum or PlasmaOrdered By: Dominic Ryder on 01-02-2025 Urea nitrogen [Mass/Vol] 12 mg/dL Normal 7-25 [facility] Comment on above: Performed By: #### M G, HS TROP, DDIMER, TSH3, CMP, BNP, CBC, [id number], PTT, PT #### [facility] [address] Vit. B12/Folate Profileon Folate 29.0 ng/mL Normal >5.9 [facility] Comment on above: Result Comment: Sally te reference range: >5.9 ng/ml The WHO technical consultation on folate and vitamin b12 deficiencies has determined that folate concentrations less than 4 ng/ml are considered deficient. Performed By: #### M G, HS TROP, DDIMER, TSH3, CMP, BNP, CBC, [id number], PTT, PT #### [facility] [address] Vitamin B12 ser/plasOrdered By: Dominic Ryder on 01-02-2025 Cobalamin (Vitamin B12) [Mass/Vol] 626 pg/mL Normal 180-914 [facility] Comment on above: Performed By: #### M G, HS TROP, DDIMER, TSH3, CMP, BNP, CBC, [id number], PTT, PT #### [facility] [address] X-ray reportOrdered By: Rafael Mccann on 01-02-2025 Study report [facility] Main [place] [address] [place] [address] XRay Report Signed Patient: Jatin Koch II MR#: [id number] : 1960 Acct:[id number] Age/Sex: 64 / M ADM Date: 5 Loc: ER Room: Type: [facility] ER Attending Dr: Copies to: Dominic Ryder [...] Mccann M.D. 01/02/2025 3:01 PM Dictation Location: RADIO-PC-20 Transcribed By: TANESHA 01/02/25 1501 Dictated By: Kirk Mccann DO 01/02/25 1459 Signed By: 01/02/25 1501 [facility] XR chest 1V portableon 01-02 XR chest 1V portable [facility] Main [place] [address] [place] [address] XRay Report Signed Patient: Jatin Koch II MR#: [id number] : 1960 Acct:[id number] Age/Sex: 64 / M ADM Date: 01/02/25 Loc: ER Room: Type: [facility] ER Attending Dr: Copies to: Dominic Ryder [...] Mccann M.D. 01/02/2025 3:01 PM Dictation Location: RADIO-PC-20 Transcribed By: TANESHA 01/02/25 1501 Dictated By: Kirk Mccann DO 01/02/25 1459 Signed By: 01/02/25 1501 Normal [facility] aPTT in Platelet poor plasma by Coagulation assayOrdered By: Dominic Ryder on 01-02-2025 aPTT Coag (PPP) [Time] 26.1 s 25.1-36.[address] [facility] Comment on above: A hematocrit value g reater than 55% may lead to inaccurate results in coagulation testing. Patients having hematocrit values >55% require a special collection tube for coagulation studies. Please contact the laboratory at [phone] for redraw instructions. Ambulatory Visit Summaryon 0 [...] 8 mg Tab) potassium chloride (Potassium Chloride (Fhg-Oqyg-Jnc M20) 20 mEq oral tablet, extended release) [...] VICTORIA FLORES PA-C Where: [facility] [address] [place] [address]- Wednesday 8:20 AM EDT With: Carlos Sethi Where: [facility] [address] [address]- Medications What How Much When Why Instructions New esomeprazole (esomeprazole 40 mg Cap-EC) 1 Capsules By Mouth Every day Postobstructive pneumonia GERD (gastroesophageal reflux disease) Hospital discharge follow-up BMI 27.0-27.9,adult Overweight (BMI 25.0-29.9) Nonsmoker Refills: 2 Pickup at [facility]/pharmacy #[id number] Unchanged albuterol (albuterol 0.083% Inh Vianca 3 [...] mg Tab) Unchanged potassium chloride (Potassium Chloride (Phx-Pnen-Bmp M20) 20 mEq oral tablet, extended release) Unchanged prochlorperazine (prochlorperazine 10 mg Tab) Pharmacy Information [id number]: [address] [place], [place] [phone] Allergies codeine (Sweating) Bactrim (Unable to void) Pollen (Watery eye, Eye swelling) sulfamethoxazole (Unknown, Unable to urinate) Problems Ongoing - Any problem that you are currently receiving treatment for. 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 Language Information Language assistance services are available as needed. Normal [facility] Family Medicine Office/Clini c Noteon 12-29-2024 Family Medicine Office/Clinic Note Family Medicine Office/Clinic Note Chief Complaint TCM visit The patient presents with postobstructive pneumonia and associated symptoms. HPI Staff Carlos Collins pt. Presenting today for TCM visit. Hospital: [facility] Admission date: 12/15/24 Discharge date: 12/22/24 Symptoms [...] Daily, # 30 cap(s), Refills(s) 2, Pharmacy: [facility]/pharmacy #[id number], 172, cm, 12/29/24 8:53:00 EDT, Height/Length Dosing, 80.5, kg, 12/29/24 8:53:00 EDT, Weight Dosing [facility] 14 day disch 59938 2. GERD (gastroesophageal reflux disease) (K21.9: Gastro-esophageal reflux disease without esophagitis) - Continue esomeprazole (Nexium) for GERD management. Ordered: esomeprazole, 40 mg = 1 cap(s), Oral, Daily, # 30 cap(s), Refills(s) 2, Pharmacy: [id number], 172, cm, 12/29/24 8:53:00 EDT, Height/Length Dosing, 80.5, kg, 12/29/24 8:53:00 EDT, Weight Dosing [facility] 14 day disch 42029 3. Nausea and vomiting (R11.2: Nausea with vomiting, unspecified) - Continue prochlorperazine for nausea management. - Encourage high protein intake as advised by dietitian. Ordered: [facility] 14 day disch [id number] 4. Hospital discharge follow-up (Z09: Encounter for follow-up examination after completed treatment for conditions other than malignant neoplasm) Reviewed discharge summary and medications Ordered: esomeprazole, 40 mg = 1 cap(s), Oral, Daily, # 30 cap(s), Refills(s) 2, Pharmacy: [facility]/pharm[facility] #[id number], 172, cm, 12/29/24 8:53:00 EDT, Height/Length Dosing, 80.5, kg, 12/29/24 8:53:00 EDT, Weight Dosing Discharge medications reconciled with current medications in outpatient record [id number] [facility] 14 day disch [address]5310 5. BMI 27.0-27.9,adult (Z68.27: Body mass index [BMI] 27.0-27.9, adult) BMI 27.21 Ordered: esomeprazole, 40 mg = 1 cap(s), Oral, Daily, # 30 cap(s), Refills(s) 2, Pharmacy: [id number], 172, cm, 12/29/24 8:53:00 EDT, Height/Length Dosing, 80.5, kg, 12/29/24 8:53:00 EDT, Weight Dosing [facility] 14 day disch 30787 6. Overweig (more content not included)... Normal [facility] Comment on above: Result Comment: Elec tronically Signed By: CATRACHO YOUSSEF CNP\.br\Date and Time Signed: 12/29/24 09:27 EDT CBC W Auto Differential pane l (Bld)on 12-26-2024 Basophils (Bld) [#/Vol] 0.04 10*3/uL Normal <0.11 [facility] Comment on above: Order Comment: Speci men Type: BLOOD SPECIMENOrdering Facility: [facility] Address: [address] [place] [address] Performed By: #### 5 7021-8 ####[facility] LABCLIA [id number] [place] [address] Basophils/100 WBC (Bld) 0.2 % Normal [facility] Comment on above: Order Comment: Speci men Type: BLOOD SPECIMENOrdering Facility: [facility] Address: [address] [place] [address] Performed By: #### 5 7021-8 ####[facility] LABCLIA [id number] [place] [address] Differential cell count method Nom (Bld) Auto Normal [facility] Comment on above: Order Comment: Speci men Type: BLOOD SPECIMENOrdering Facility: [facility] Address: [address] [place] [address] Performed By: #### 5 7021-8 ####[facility] LABCLIA [id number] [place] [address] Eosinophils (Bld) [#/Vol] 0.51 10*3/uL High <0.46 [facility] Comment on above: Order Comment: Speci men Type: BLOOD SPECIMENOrdering Facility: [facility] Address: [address] [place] [address] Performed By: #### 5 7021-8 ####[facility] LABCLIA [id number] [place] [address] Eosinophils/100 WBC (Bld) 3.0 % Normal [facility] Comment on above: Order Comment: Speci men Type: BLOOD SPECIMENOrdering Facility: [facility] Address: [address] [place] [address] Performed By: #### 5 7021-8 ####[facility] LABCLIA [id number] [place] [address] Erythrocyte distribution width (RBC) [Ratio] 15.2 % High 11.5-15.0 [facility] Comment on above: Order Comment: Speci men Type: BLOOD SPECIMENOrdering Facility: [facility] Address: [address] [place] [address] Performed By: #### 5 7021-8 ####[facility] LABCLIA [id number] [place] [address] Hematocrit (Bld) [Volume fraction] 33.9 % Low 39.0-51.0 [facility] Comment on above: Order Comment: Speci men Type: BLOOD SPECIMENOrdering Facility: [facility] Address: [address] [place] [address] Performed By: #### 5 7021-8 ####[facility] LABCLIA [id number] [place] [address] Hemoglobin (Bld) [Mass/Vol] 10.8 g/dL Low 13.0-17.0 [facility] Comment on above: Order Comment: Speci men Type: BLOOD SPECIMENOrdering Facility: [facility] Address: [address] [place] [address] Performed By: #### 5 7021-8 ####[facility] LABCLIA [id number] [place] [address] Immature granulocytes (Bld) [#/Vol] 0.07 10*3/uL Normal <0.10 [facility] Comment on above: Order Comment: Speci men Type: BLOOD SPECIMENOrdering Facility: [facility] Address: [address] [place] [address] Performed By: #### 5 7021-8 ####[facility] LABIA [id number] [place] [address] Immature granulocytes/100 WBC (Bld) 0.4 % Normal [facility] Comment on above: Order Comment: Speci men Type: BLOOD SPECIMENOrdering Facility: [facility] Address: [address] [place] [address] Performed By: #### 5 7021-8 ####[facility] LABCLIA [id number] [place] [address] Lymphocytes (Bld) [#/Vol] 1.32 10*3/uL Normal 1.00-4.00 [facility] Comment on above: Order Comment: Speci men Type: BLOOD SPECIMENOrdering Facility: [facility] Address: [address] [place] [address] Performed By: #### 5 7021-8 ####[facility] LABCLIA [id number] [place] [address] Lymphocytes/100 WBC (Bld) 7.8 % Normal [facility] Comment on above: Order Comment: Speci men Type: BLOOD SPECIMENOrdering Facility: [facility] Address: [address] [place] [address] Performed By: #### 5 7021-8 ####[facility] LABCLIA [id number] [place] [address] MCH (RBC) [Entitic mass] 27.3 pg Normal 26.0-34.0 [facility] Comment on above: Order Comment: Speci men Type: BLOOD SPECIMENOrdering Facility: [facility] Address: [address] [place] [address] Performed By: #### 5 7021-8 ####[facility] LABCLIA [id number] [place] [address] MCHC (RBC) [Mass/Vol] 31.9 g/dL Normal 30.5-36.0 [facility] Comment on above: Order Comment: Speci men Type: BLOOD SPECIMENOrdering Facility: [facility] Address: [address] [place] [address] Performed By: #### 5 7021-8 ####[facility] LABCLIA [id number] [place] [address] MCV (RBC) [Entitic vol] 85.8 fL Normal 80.0-100.0 [facility] Comment on above: Order Comment: Speci men Type: BLOOD SPECIMENOrdering Facility: [facility] Address: [address] [place] [address] Performed By: #### 5 7021-8 ####[facility] LABCLIA [id number] [place] [address] Monocytes (Bld) [#/Vol] 0.84 10*3/uL Normal <0.87 [facility] Comment on above: Order Comment: Speci men Type: BLOOD SPECIMENOrdering Facility: [facility] Address: [address] [place] [address] Performed By: #### 5 7021-8 ####[facility] LABCLIA [id number] [place] [address] Monocytes/100 WBC (Bld) 4.9 % Normal [facility] Comment on above: Order Comment: Speci men Type: BLOOD SPECIMENOrdering Facility: [facility] Address: [address] [place] [address] Performed By: #### 5 7021-8 ####[facility] LABCLIA [id number] [place] [address] Neutrophils (Bld) [#/Vol] 14.21 10*3/uL High 1.45-7.50 [facility] Comment on above: Order Comment: Speci men Type: BLOOD SPECIMENOrdering Facility: [facility] Address: [address] [place] [address] Performed By: #### 5 7021-8 ####[facility] LABCLIA [id number] [place] [address] Neutrophils/100 WBC (Bld) 83.7 % Normal [facility] Comment on above: Order Comment: Speci men Type: BLOOD SPECIMENOrdering Facility: [facility] Address: [address] [place] [address] Performed By: #### 5 7021-8 ####[facility] LABCLIA [id number] [place] [address] Nucleated RBC (Bld) [#/Vol] 10*3/uL Normal <0.01 [facility] Comment on above: Order Comment: Speci men Type: BLOOD SPECIMENOrdering Facility: [facility] Address: [address] [place] [address] Performed By: #### 5 7021-8 ####[facility] LABCLIA [id number] [place] [address] Nucleated RBC/100 WBC (Bld) [Ratio] 0.0 /100 WBC Normal [facility] Comment on above: Order Comment: Speci men Type: BLOOD SPECIMENOrdering Facility: [facility] Address: [address] [place] [address] Performed By: #### 5 7021-8 ####[facility] LABIA [id number] [place] [address] Platelet mean volume (Bld) [Entitic vol] 9.0 fL Normal 9.0-12.7 [facility] Comment on above: Order Comment: Speci men Type: BLOOD SPECIMENOrdering Facility: [facility] Address: [address] [place] [address] Performed By: #### 5 7021-8 ####[facility] LABCLIA [id number] [place] [address] Platelets (Bld) [#/Vol] 246 10*3/uL Normal 150-400 [facility] Comment on above: Order Comment: Speci men Type: BLOOD SPECIMENOrdering Facility: [facility] Address: [address] [place] [address] Performed By: #### 5 7021-8 ####[facility] LABCLIA [id number] [place] [address] RBC (Bld) [#/Vol] 3.95 10*6/uL Low 4.20-6.00 [facility] Comment on above: Order Comment: Speci men Type: BLOOD SPECIMENOrdering Facility: [facility] Address: [address] [place] [address] Performed By: #### 5 7021-8 ####[facility] LABIA [id number] [place] [address] WBC (Bld) [#/Vol] 16.99 10*3/uL High 3.70-11.00 [facility] Comment on above: Order Comment: Speci men Type: BLOOD SPECIMENOrdering Facility: [facility] Address: [address] [place] [address] Performed By: #### 5 7021-8 ####[facility] LABIA [id number] [place] [address] CNOVSPon 12-26-2024 CNOVSP Normal [facility] CNPNon 12-26-2024 CNPN Normal [facility] Comprehensive metabolic 2000 panelon 12-26-2024 Albumin [Mass/Vol] 3.7 g/dL Low 3.9-4.9 [facility] Comment on above: Order Comment: Speci men Type: BLOOD SPECIMENOrdering Facility: [facility] Address: [address] [place] [address] Performed By: #### 2 4323-8 ####[facility] LABCLIA [id number] [place] [address] ALP [Catalytic activity/Vol] 68 U/L Normal 38-113 [facility] Comment on above: Order Comment: Speci men Type: BLOOD SPECIMENOrdering Facility: [facility] Address: [address] [place] [address] Performed By: #### 2 4323-8 ####[facility] LABCLIA [id number] [place] [address] ALT [Catalytic activity/Vol] 9 U/L Low 10-54 [facility] Comment on above: Order Comment: Speci men Type: BLOOD SPECIMENOrdering Facility: [facility] Address: [address] [place] [address] Performed By: #### 2 4323-8 ####[facility] LABCLIA [id number] [place] [address] Anion gap [Moles/Vol] 14 mmol/L Normal 8-15 [facility] Comment on above: Order Comment: Speci men Type: BLOOD SPECIMENOrdering Facility: [facility] Address: [address] [place] [address] Performed By: #### 2 4323-8 ####[facility] LABCLIA [id number] [place] [address] AST [Catalytic activity/Vol] 10 U/L Low 14-40 [facility] Comment on above: Order Comment: Speci men Type: BLOOD SPECIMENOrdering Facility: [facility] Address: [address] [place] [address] Performed By: #### 2 4323-8 ####[facility] LABCLIA [id number] [place] [address] Bilirubin [Mass/Vol] 0.3 mg/dL Normal 0.2-1.3 [facility] Comment on above: Order Comment: Speci men Type: BLOOD SPECIMENOrdering Facility: [facility] Address: [address] [place] [address] Performed By: #### 2 4323-8 ####[facility] LABCLIA [id number] [place] [address] Calcium [Mass/Vol] 9.5 mg/dL Normal 8.5-10.2 [facility] Comment on above: Order Comment: Speci men Type: BLOOD SPECIMENOrdering Facility: [facility] Address: [address] [place] [address] Performed By: #### 2 4323-8 ####[facility] LABCLIA [id number] [place] [address] Chloride [Moles/Vol] 102 mmol/L Normal 98-107 [facility] Comment on above: Order Comment: Speci men Type: BLOOD SPECIMENOrdering Facility: [facility] Address: [address] [place] [address] Performed By: #### 2 4323-8 ####[facility] LABCLIA [id number] [place] [address] CO2 [Moles/Vol] 20 mmol/L Low 22-30 [facility] Comment on above: Order Comment: Speci men Type: BLOOD SPECIMENOrdering Facility: [facility] Address: [address] [place] [address] Performed By: #### 2 4323-8 ####[facility] LABCLIA [id number] [place] [address] Creatinine [Mass/Vol] 0.84 mg/dL Normal 0.73-1.22 [facility] Comment on above: Order Comment: Speci men Type: BLOOD SPECIMENOrdering Facility: [facility] Address: [address] [place] [address] Performed By: #### 2 4323-8 ####[facility] LABCLIA [id number] [place] [address] eGFRcr SerPlBld CKD-EPI 2020 98 mL/min/1.73m??? Normal >=60 [facility] Comment on above: Order Comment: Speci men Type: BLOOD SPECIMENOrdering Facility: [facility] Address: [address] [place] [address] Result Comment: Carly mated Glomerular Filtration Rate [...] actual GFR. Performed By: #### 2 4323-8 ####[facility] LABCLIA [id number] [place] [address] Glucose [Mass/Vol] 120 mg/dL High 74-99 [facility] Comment on above: Order Comment: Speci men Type: BLOOD SPECIMENOrdering Facility: [facility] Address: [address] [place], [place] [address] Result Comment: The [place] Diabetes [employer] (ADA) provides guidance for cutoff [...] Standards of Medical Care in Diabetes 2016, [place] [employer]. Diabetes Care. 2016.39(Suppl 1). Performed By: #### 2 4323-8 ####[facility] LABCLIA [id number] [place] [address] Potassium [Moles/Vol] 3.2 mmol/L Low 3.7-5.1 [facility] Comment on above: Order Comment: Speci men Type: BLOOD SPECIMENOrdering Facility: [facility] Address: [address] [place] [address] Performed By: #### 2 4323-8 ####[facility] LABCLIA [id number] [place] [address] Protein [Mass/Vol] 7.0 g/dL Normal 6.3-8.0 [facility] Comment on above: Order Comment: Speci men Type: BLOOD SPECIMENOrdering Facility: [facility] Address: [address] [place] [address] Performed By: #### 2 4323-8 ####[facility] LABCLIA [id number] [place] [address] Sodium [Moles/Vol] 136 mmol/L Normal 136-144 [facility] Comment on above: Order Comment: Speci men Type: BLOOD SPECIMENOrdering Facility: [facility] Address: [address] [place] [address] Performed By: #### 2 4323-8 ####[facility] LABCLIA [id number] [place] [address] Urea nitrogen [Mass/Vol] 17 mg/dL Normal 9-24 [facility] Comment on above: Order Comment: Speci men Type: BLOOD SPECIMENOrdering Facility: [facility] Address: [address] [place] [address] Performed By: #### 2 4323-8 ####[facility] LABCLIA [id number] [place] [address] Ferritin SerPl-mCncon 2024 Ferritin [Mass/Vol] 595.0 ng/mL High 30.3-565.7 [facility] Comment on above: Order Comment: Speci men Type: BLOOD SPECIMENOrdering Facility: [facility] Address: [address] [place] [address] Performed By: #### 5 0190-8, 2275-4, 2132-02, 8 ####[facility] LABCLIA [id number] [place] [address] [place] Folate SerPl-mCncon 12-27-19 25 Folate [Mass/Vol] 10.8 ng/mL Normal >4.7 [facility] Comment on above: Order Comment: Speci men Type: BLOOD SPECIMENOrdering Facility: [facility] Address: [address] [place] [address] Performed By: #### 5 0190-8, 2275-4, 9, 8 ####[facility] LABCLIA [id number] [place] [id number] [facility] [place] Iron and Iron binding capaci ty panel 12-26-2024 Iron [Mass/Vol] 11 ug/dL Low 41-186 [facility] Comment on above: Order Comment: Speci men Type: BLOOD SPECIMENOrdering Facility: [facility] Address: [address] [place], [place] [address] Performed By: #### 5 0190-8, 2275-4, 2132-02, 2284-01 ####[facility] LABCLIA [id number] [place] [address] [place] Iron binding capacity [Mass/Vol] 180 ug/dL Low 232-386 [facility] Comment on above: Order Comment: Speci men Type: BLOOD SPECIMENOrdering Facility: [facility] Address: [address] [place] [address] Performed By: #### 5 0190-8, 2275-09, 2132-02, 2284-01 ####[facility] LABIA [id number] [place] [address] [place] Iron/TIBC [Molar ratio] 6.1 % Low 15.0-57.0 [facility] Comment on above: Order Comment: Speci men Type: BLOOD SPECIMENOrdering Facility: [facility] Address: [address] [place] [address] Performed By: #### 5 0190-8, 4, 2132-02, 2284-01 ####[facility] LABCLIA [id number] [place] [address] [place] Vit B12 [facility]Pl[facility] 0[facility] Cobalamin (Vitamin B12) [Mass/Vol] 860 pg/mL Normal 232-1245 [facility] Comment on above: Order Comment: Speci men Type: BLOOD SPECIMENOrdering Facility: [facility] Address: [address] [place] [address] Performed By: #### 5 0190-8, 2275-09, 2132-02, 2284-01 ####[facility] LABCLIA [id number] [address] OF [facility] 12-26-19 [facility] Case Information Case Priority: None Programs: -- 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 Referral Reason: Care coordination Case Type: Transition Care Management Risk Score: -- Case Status: Enrolled (December 25, 2024) Date Assigned: December 25, 2024 Assigned By: Gordo Humphries Date Enrolled: December 25, 2024 Assigned Primary Personnel: Gordo Humphries Assigned Secondary Personnel: -- Case Physician: CATRACHO YOUSSEF CNP Problems Ongoing Arthritis BMI 31.0-31.9,adult BPH with urinary obstruction Encounter to establish care Fever Flank pain Former smoker Gout Head injury History of kidney stones Hospital discharge follow-up Hx of fci use of blood thinners [...] Care Plan Progress Note Admit Date: 12/15/24 [facility] Date of Discharge: 12/22/24 Follow-up appointment scheduled? yes, TCM F/U with LeighaRocky Youssef 12/29/24 at 0840 Did you understand [...] is going to discuss Toprol changes with preparole counseling aide Are you having difficulty eating or swallowing [...] Outcome: Yung (more content not included)... Normal [facility] 12-22-2024 [facility] Normal [facility] 12-18-2024 [facility] Normal [facility] ECG COMPLETEon 12-17-2024 Atrial Rate 83 BPM [facility] Calculated P [place] 34 degrees [facility] Calculated R [place] 22 degrees [facility] Calculated T [place] 14 degrees [facility] P-R Interval 166 ms [facility] QRS Duration 122 ms [facility] QT Interval 390 ms [facility] QTC Calculation (Bazett) 458 ms [facility] Ventricular Rate 83 BPM [facility] NORMAL SINUS RHYTHM COMPLETE RIGHT BUNDLE BRANCH BLOCK ABNORMAL ECG Confirmed by MD RICHIE, PhD, SALOME ([id number]) on 12/17/2024 4:34:47 [facility] NAME : BLANCHE KOCH PID : [id number] : 1960 Gender : Male Race : ORD : [id number] Procedure Date : Nov 15 2024 11:34:55 [...] : [facility] CNPNon 12-14-2024 CNPN Normal [facility] CNPNon 12-12-2024 CNPN Normal [facility] CNNURSEon 12-08-2024 CNNURSE Normal [facility] CNPNon 12-08-2024 CNPN Normal [facility] CT BRAIN WO IVCONon 12-08-19 CT BRAIN WO IVCON Normal [facility] CT Head WO contraston 2024 IMPRESSION: 1. [...] any questions regarding this interpretation, please call [phone]. If you are unable to reach us at the number above, please feel free to contact [facility] eRadiology at [phone]. DIVISION OF RADIOLOGY * * *Final Report* * * DATE OF EXAM: Dec 07 2024 8:32AM [facility] 0504 - CT BRAIN WO IVCON / [...] DATE OF EXAM: Dec 07 2024 8:32AM [facility] 0504 - CT BRAIN WO IVCON / [...] any questions regarding this interpretation, please call [phone]. If you are unable to reach us at the number above, please feel free to contact [facility] eRadiology at [phone]. [facility] Radiology Study observation (narrative) Aniket carvalho [facility] CT Head WO contrastOrdered B y: Ccf Provider on 12-07-2024 [facility] Ambulatory Visit Summaryon 0 12-05-2024 Ambulatory [...] PALMA, VICTORIA Flores Where: [facility] [address] [place] [address]- Wednesday 8:20 AM EDT With: Carlos Sethi Where: [facility] [address] [address]- Medications What How Much When Instructions Unchanged [...] kidney stones Hospital discharge follow-up Hx of fci use of blood thinners [...] signed up for this yet, please contact [employer] at [phone] to get signed up today. Language Information Language assistance services are available as needed. 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 she is going to call her when [...] q6hr for wheezing, 60 EA, Refill(s) 0, [facility]/pharmacy #[id number], 172, cm, 12/05/24 11:09:00 EDT, Height/Length Dosing, 84.6, kg, 12/05/24 11:09:00 EDT, Weight Dosing predniSONE, See Instructions, TAKE 3 TABLETS X 3 DAYS, 2 TABLETS X 3 DAYS, THEN 1 TABLET X 3 DAYS, # 18 tab(s), Refills(s) 2, Pharmacy: [facility]/pharmacy #[id number], 172, cm, 12/05/24 11:09:00 EDT, Height/Length Dosing, 84.6, kg, 12/05/24 11:09:00 EDT, Weight Dosing Follow-up No qualifying data available Problem List/Past Medical History Ongoing Arthritis BMI 31.0-31.9,adult BPH with urinary obstruction Encounter to establish care Fever Flank pain Former smoker Gout Head injury History of kidney stones Hospital discharge follow-up 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 Kidney stones Microhematuria [...] vaccine, inactivated 03/14/2017 Recorded Normal [facility] Comment on above: Result Comment: Elec tronically Signed By: Carlos Sethi\.br\Date and Time Signed: 12/05/24 15:02 EDT [facility] 11-28-2024 CNPN Normal [facility] CNNURSEon 11-27-2024 CNNURSE Normal [facility]27-[facility] Folate SerPl-ncon 11-28-19 25 Folate [Mass/Vol] 14.7 ng/mL Normal >4.7 [facility] Comment on above: Order Comment: Speci men Type: BLOOD SPECIMENOrdering Facility: [facility] Address: [address] [place] [address] Performed By: #### 2 132-9, 2284-8, 74111-8 ####[facility] LABCLIA [id number] [place] [address] [place] Iron and Iron binding capaci ty panelon 11-27-2024 Iron [Mass/Vol] 32 ug/dL Low 41-186 [facility] Comment on above: Order Comment: Speci men Type: BLOOD SPECIMENOrdering Facility: [facility] Address: [address] [place] [address] Performed By: #### 2 132-9, 2284-8, 57894-2 ####[facility] LABIA [id number] [place] [address] [place] Iron binding capacity [Mass/Vol] 264 ug/dL Normal 232-386 [facility] Comment on above: Order Comment: Speci men Type: BLOOD SPECIMENOrdering Facility: [facility] Address: [address] [place] [address] Performed By: #### 2 132-9, 2284-8, 37893-3 ####[facility] LABIA [id number] [place] [address] [place] Iron/TIBC [Molar ratio] 12.1 % Low 15.0-57.0 [facility] Comment on above: Order Comment: Speci men Type: BLOOD SPECIMENOrdering Facility: [facility] Address: [address] [place] [address] Performed By: #### 2 132-9, 2284-8, 82795-1 ####[facility] LABIA [id number] [place] [address] [place] Vit B12 SerPl-ncon 025 Cobalamin (Vitamin B12) [Mass/Vol] 782 pg/mL Normal 232-1245 [facility] Comment on above: Order Comment: Speci men Type: BLOOD SPECIMENOrdering Facility: [facility] Address: [address] [place] [address] Performed By: #### 2 132-9, 2284-8, 20726-4 ####[facility] LABCLIA [id number] [place] [address] [place] CNPNon 11-23-2024 CNPN Normal [facility] Population Health 11-22-19 [facility] Case Information Case Priority: None Programs: -- 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 Referral Reason: Care coordination Case Type: Transition [...] kidney stones Hospital discharge follow-up Hx of fci use of blood thinners [...] States doing well had bronchoscopy yesterday at [facility], they were able to remove a majority of the right lung mass. Denies any SOB, CP, weakness or syncopal episodes. Does have a frequent dry cough today, no fevers, had some blood tinged sputum yesterday and late last night, none today. 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 Normal [facility] XR CHEST 2 VWSon 11-21-2024 XR [...] MD on 11/21/2024 10:29 PM Normal [facility] ANES POSTPROC EVALon 025 ANES POSTPROC EVAL Normal [facility] ANES PRE-OPon 11-20-2024 ANES PRE-OP Normal [facility] Bacteria Spec Resp Culton Bacteria identified Respiratory culture Nom (Unsp spec) Abnormal [facility] Comment on above: Performed By: #### 1 1475-1, 55498-6 ####[facility] LABCLIA [id number] [address] [address] [place] Bronchoscopyon 11-20-2024 Bronchoscopy Normal [facility] CNPNon 11-20-2024 CNPN Normal [facility] Microorganism Spec Culton Microorganism identified Cx Nom (Unsp spec) CULTURE, FUNGAL: No Fungus isolated after 28 days FUNGAL SMEAR: No fungus seen Normal [facility] Comment on above: Performed By: #### 1 1475-1, 37210-4 ####[facility] LABCLIA [id number] [place] [id number] [place] Microorganism identified Cx Nom (Unsp spec) CULTURE, AFB: No Acid Fast Bacilli isolated after 42 days AFB STAIN: No acid fast bacilli seen by fluorochrome stain Normal [facility] Comment on above: Performed By: #### 1 1475-1, 93195-9 ####[facility] LABCLIA [id number] [address] [address] [place] NURSING PROGon 11-20-2024 NURSING PROG Normal [facility] PD-L1 22C3on 11-20-2024 AP BIOMARKER DISCLAIMER Normal [facility] Comment on above: Order Comment: Speci men Type: TISSUE SPECIMENOrdering Facility: [facility] Address: [address] [place] [address] Result Comment: Babita carter Developed Test (LDT) Disclaimer:Performance characteristics of immunohistochemical, immunofluorescent and chromogenic in-situ hybridization tests have been determined by the performing laboratory within [facility]???s [facility]ellar Pathology and Laboratory Medicine Department ([facility], [facility], [facility], [facility], [facility], [facility], or [facility]) in a manner consistent with CLIA requirements. One or more of these tests have not been cleared or approved by the FDA. [facility] is regulated under CLIA as qualified to perform high-complexity testing. These tests are used for clinical purposes. They should not be regarded as investigational or for research. Positive and negative controls stain appropriately. Performed By: #### L [id number] ####[facility] LABCLIA [id number] [place] [address] [place] AP BLOCK ID A1 Normal [facility] Comment on above: Order Comment: Ange hull Type: TISSUE SPECIMENOrdering Facility: [facility] Address: [address] [place] [address] Performed By: #### L [id number] ####[facility] LABCLIA [id number] [address] BIOMARKER INTERPRETATION COMMENT AND REFERENCE RANGE Normal [facility] Comment on above: Order Comment: Ange hull Type: TISSUE SPECIMENOrdering Facility: [facility] Address: [address] [place] [address] Result Comment: Inte rpretation standard:TPS: The Tumor [...] the Product label for additional information.KEYTRUDA - (https://www.keytrudahcp.com/prescribing-information/)LIBTAYO - (https://www.iApp4Me/sites/default/files/Libtayo_FPI.pdf ) Performed By: #### L [id number] ####[facility] LABCLIA [id number] [facility] [place] [address] [place] BIOMARKER METHOD Normal [facility] Comment on above: Order Comment: Speci men Type: TISSUE SPECIMENOrdering Facility: [facility] Address: [address] [place] [address] Performed By: #### L [id number] ####[facility] LABCLIA [id number] [facility] MEDICAL CENTERK [id number], [place] [address] [place] [facility] CASE NUMBER PD-L1 [id number] Normal [facility] Comment on above: Order Comment: Speci men Type: TISSUE SPECIMENOrdering Facility: [facility] Address: [address] [place] [address] Performed By: #### L [id number] ####[facility] LABCLIA [id number] [address] [place] [address] [place] FIXATIVE Formalin, 10% Neutra l Buffered Normal [facility] Comment on above: Order Comment: Speci men Type: TISSUE SPECIMENOrdering Facility: [facility] Address: [address] [place], [place] [address] Performed By: #### L [id number] ####[facility] LABCLIA [id number] [address] [place] [address] [place] PD-L1 22C3 TPS (LUNG) INTERPRETATION Negative Normal [facility] Comment on above: Order Comment: Speci men Type: TISSUE SPECIMENOrdering Facility: [facility] Address: [address] [place], [place] [address] Performed By: #### L [id number] ####[facility] LABCLIA [id number] [address] [place] [address] [place] PD-L1 TUMOR TYPE Other (See Comment) Normal [facility] Comment on above: Order Comment: Speci men Type: TISSUE SPECIMENOrdering Facility: [facility] Address: [address] [place] [address] Performed By: #### L [id number] ####[facility] [id number] [address] [address] [place] TUMOR PROPORTION SCORE (TPS) 0 Normal [facility] Comment on above: Order Comment: Speci men Type: TISSUE SPECIMENOrdering Facility: [facility] Address: [address] [place] [address] Performed By: #### L [id number] ####[facility] [id number] [address] [place] [address] [place] Pathology biopsy report Meño (Tiss)on 11-20-2024 ADDENDUM 1: Normal [facility] Comment on above: Order Comment: Speci men Type: TISSUE SPECIMENOrdering Facility: [facility] Address: [address] [place] [address] Result Comment: This addendum is issued to report that an immunohistochemical stain for p40 was performed to confirm the squamous immunophenotype of the tumor cells, which are diffusely positive for this marker. The above diagnosis remains unchanged.11/24/2024Laboratory Developed Test (LDT) Disclaimer:Performance characteristics of immunohistochemical, immunofluorescent and chromogenic in-situ hybridization tests have been determined by the performing laboratory within [facility]???[facility] Medicine [place] ([facility], [facility], [facility] or [facility]) in a manner consistent with CLIA [...] 1049 EDT Performed By: #### 6 6121-5 ####[facility] [id number] [address] [address] [place] AP DISCLAIMER Normal [facility] Comment on above: Order Comment: Speci men Type: TISSUE SPECIMENOrdering Facility: [facility] Address: [address] [place] [address] Result Comment: Babita carter Developed Test (LDT) Disclaimer:Performance characteristics of immunohistochemical, immunofluorescent, and chromogenic in-situ hybridization tests have been determined by the performing laboratory within [facility]'s [facility] Pathology and Laboratory Medicine Department ([facility], [facility], [facility], [facility], [facility], [facility], or [facility]) in a manner consistent with CLIA requirements. One or more of these tests may not have been cleared or approved by the FDA. [facility] is regulated under CLIA as qualified to perform high-complexity testing. These tests are used for clinical purposes. These should not be regarded as investigational or for research. Positive and negative controls stain appropriately. Performed By: #### 6 6121-5 ####[facility] LABCLIA [id number] [place] [address] [place] CASE REPORT Normal [facility] Comment on above: Order Comment: Speci della Type: TISSUE SPECIMENOrdering Facility: [facility] Address: [address] [place] [address] Result Comment: Surg [facility] Pathology Report Case: [id number] Provider: Alexandre Robertson MD Collected: 11/20/2024 11:10 AMOrdering Location: Admitting Received: 11/20/2024 03:27 PMPathologist: William Araujo V, MDSpecimen: Lung, Right, Biopsy, BI EBBX Performed By: #### 6 6121-5 ####[facility] [id number] [place] [address] [place] CLINICAL HISTORY Normal [facility] Comment on above: Order Comment: Speci men Type: TISSUE SPECIMENOrdering Facility: [facility] Address: [address] [place] [address] Result Comment: 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] Performed By: #### 6 6121-5 ####[facility]CLIA [id number] [address] FINAL DIAGNOSIS Normal [facility] Comment on above: Order Comment: Speci men Type: TISSUE SPECIMENOrdering Facility: [facility] Address: [address] [place] [address] Result Comment: Righ t lung, bronchus intermedius, endobronchial biopsy:- Squamous cell carcinoma.VA/ 11/21/2024 at 1050 EDT Performed By: #### 6 6121-5 ####[facility] LABCLIA [id number] [address] STATES OF [facility] GROSS DESCRIPTION Normal [facility] Comment on above: Order Comment: Speci men Type: TISSUE SPECIMENOrdering Facility: [facility] Address: [address] [place] [address] Result Comment: A. L john, Right, BiopsyReceived in formalin are multiple pieces of cardenas-red, soft tissue aggregating to 2.1 x 0.6 x 0.1 cm. Totally submitted in one cassette.Gross examination performed at [facility], [address] [place], [place] [address]AMS November 20, 2024 6:23 PM Performed By: #### 6 6121-5 ####[facility]IA [id number] [address] [place] Tiss Path Bx reporton 2024 FINAL PERFORMING LAB Normal [facility] Comment on above: Order Comment: Speci men Type: TISSUE SPECIMENOrdering Facility: [facility] Address: [address] [place] [address] Result Comment: Diag nostic interpretation performed at: [facility], [address] [place] [address] CLIA# [id number] Director: Padilla López MD Performed By: #### 6 6121-5 ####[facility] [id number] [place] [address] [place] Result Comment: Diag nostic interpretation performed at: [facility], [address] [facility], [facility] [address] [address] CLIA# [id number] Director: Padilla López MDElectronically signed out by: William Araujo MD Performed By: #### L [id number] ####[facility] LABCLIA [id number] [place] [id number] [place] CNCNPATEDon 11-17-2024 CNCNPATED Normal [facility] CNOVon 11-17-2024 CNOV Normal [facility] CNOVSPon 11-17-2024 CNOVSP Normal [facility] CNPNon 11-17-2024 CNPN Normal [facility] CNOVon 11-15-2024 CNOV Normal [facility] ECG COMPLETEon 11-15-2024 ECG COMPLETE Normal [facility] NURSING PROGon 11-13-2024 NURSING PROG Normal [facility] Population Healthon 11-14-19 [facility] Case Information Case Priority: None Programs: -- 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 Referral Reason: Care coordination Case Type: Transition [...] kidney stones Hospital discharge follow-up Hx of fci use of blood thinners [...] 'alright.' Notes he had some testing at [facility] this morning (labs, US, CT scan). Patient denies any SOB, breathing difficulties, or chest discomfort. Denies weakness. Notes he had a PCM inserted at [facility] last and that it went without complications. Patient does report some discomfort from procedure, as to be excpeted. Notes he has follow ups in place for PCM. Patient reports he feels 'a lot better now.' Reports BP is 'fantastic.' Patient has a consult with [facility] on 11/15/24 and is scheduled for out patient surgery on 11/20/24, having right lung mass removed at [facility]. Patient denies any further questions or concerns at this time and is appreciative of follow up call. Communication Events Date: November 13, 2024 Method: Phone call Type: Outbound Duration (min): 7 Outcome: Case discussion Contact Type: Patient Contact Name: JATIN KOCH II Notes: TCM#2- see tcm note. Created By: Gordo Humphries [facility] CBC WITH AUTO DIFFERENTIALon 11-09-2024 CELLAVISION DIFFERENTIAL TYPE CELLAVISION DIFFERENTIAL Normal [facility] Comment on above: Result Comment: This is an appended report. These results have been appended to a previously preliminary verified report. Performed By: #### C BCA #### [facility] ([facility]) [address] [place] [address] VIR CELLAVISION EOSINOPHILS ABSOLUTE COUNT (10*3/UL) BY MANUAL COUNT 0.2 10*3/uL Normal 0.0-0.4 [facility] Comment on above: Result Comment: This is an appended report. These results have been appended to a previously preliminary verified report. Performed By: #### C BCA #### [facility] ([facility]) [address] [place] [address] VIR CELLAVISION EOSINOPHILS PERCENT BY MANUAL COUNT 1 % Normal [facility] Comment on above: Result Comment: This is an appended report. These results have been appended to a previously preliminary verified report. Performed By: #### C BCA #### [facility] ([facility]) [address] [place] [address] VIR CELLAVISION LYMPHOCYTES ABSOLUTE COUNT (10*3/UL) BY MANUAL COUNT 1.8 10*3/uL Normal 1.0-3.5 [facility] Comment on above: Result Comment: This is an appended report. These results have been appended to a previously preliminary verified report. Performed By: #### C BCA #### [facility] ([facility]) [address] [place] [address] VIR CELLAVISION LYMPHOCYTES RELATIVE PERCENT BY MANUAL COUNT 11 % Normal [facility] Comment on above: Result Comment: This is an appended report. These results have been appended to a previously preliminary verified report. Performed By: #### C BCA #### [facility] ([facility]) [address] [place] [address] VIR CELLAVISION METAMYELOCYTES RELATIVE PERCENT BY MANUAL COUNT 2 % Normal [facility] Comment on above: Result Comment: This is an appended report. These results have been appended to a previously preliminary verified report. Performed By: #### C BCA #### [facility] ([facility]) [address] [place] [address] VIR CELLAVISION MONOCYTES ABSOLUTE COUNT (10*3/UL) IN BLOOD BY MANUAL COUNT 1.8 10*3/uL High 0.0-0.9 [facility] Comment on above: Result Comment: This is an appended report. These results have been appended to a previously preliminary verified report. Performed By: #### C BCA #### [facility] ([facility]) [address] [place] [address] VIR CELLAVISION MONOCYTES RELATIVE PERCENT BY MANUAL COUNT 11 % Normal [facility] Comment on above: Result Comment: This is an appended report. These results have been appended to a previously preliminary verified report. Performed By: #### C BCA #### [facility] ([facility]) [address] [place] [address] VIR CELLAVISION MYELOCYTE RELATIVE PERCENT BY MANUAL COUNT 1 % Normal [facility] Comment on above: Result Comment: This is an appended report. These results have been appended to a previously preliminary verified report. Performed By: #### C BCA #### [facility] ([facility]) [address] [place] [address] VIR CELLAVISION NEUTROPHILS ABSOLUTE COUNT BY MANUAL COUNT 11.5 10*3/uL High 1.5-6.6 [facility] Comment on above: Result Comment: This is an appended report. These results have been appended to a previously preliminary verified report. Performed By: #### C BCA #### [facility] ([facility]) [address] [place] [address] VIR CELLAVISION NEUTROPHILS RELATIVE PERCENT BY MANUAL COUNT 73 % Normal [facility] Comment on above: Result Comment: This is an appended report. These results have been appended to a previously preliminary verified report. Performed By: #### C BCA #### [facility] ([facility]) [address] [place] [address] VIR CELLAVISION RBC MORPHOLOGY Normal Normal [facility] Comment on above: Result Comment: This is an appended report. These results have been appended to a previously preliminary verified report. Performed By: #### C BCA #### [facility] ([facility]) [address] [place] [address] VIR Erythrocyte distribution width (RBC) [Ratio] 16.5 % High 11.5-15 [facility] Comment on above: Performed By: #### C BCA #### [facility] ([facility]) [address] [place] [address] VIR Hematocrit (Bld) [Volume fraction] 35.1 % Low 39-50 [facility] Comment on above: Performed By: #### C BCA #### [facility] ([facility]) [address] [place] [address] VIR Hemoglobin (Bld) [Mass/Vol] 11.7 g/dL Low 13-17 [facility] Comment on above: Performed By: #### C BCA #### [facility] ([facility]) [address] [place] [address] VIR MCH (RBC) [Entitic mass] 27.6 pg Normal 27-34 [facility] Comment on above: Performed By: #### C BCA #### [facility] ([facility]) [address] [place] [address] VIR MCHC (RBC) [Mass/Vol] 33.4 g/dL Normal 32-36 [facility] Comment on above: Performed By: #### C BCA #### [facility] ([facility]) [address] [place] [address] VIR MCV (RBC) [Entitic vol] 83 fL Normal 80-100 [facility] Comment on above: Performed By: #### C BCA #### [facility] ([facility]) [address] [place] [address] VIR Platelet mean volume (Bld) [Entitic vol] 6.9 fL Low 7-12 [facility] Comment on above: Performed By: #### C BCA #### [facility] ([facility]) [address] [place] [address] VIR Platelets (Bld) [#/Vol] 254 10*3/uL Normal 150-450 [facility] Comment on above: Performed By: #### C BCA #### [facility] ([facility]) [address] [place] [address] VIR RBC COUNT 4.25 X10E12/L Normal 4.1-5.7 [facility] Comment on above: Performed By: #### C BCA #### [facility] ([facility]) [address] [place] [address] VIR WBC (Bld) [#/Vol] 15.7 10*3/uL High 4-11 [facility] Comment on above: Performed By: #### C BCA #### [facility] ([facility]) [address] [place] [address] VIR COMPREHENSIVE METABOLIC PANE Paul 11-09-2024 Albumin [Mass/Vol] 3.4 g/dL Normal 3.2-5.3 [facility] Comment on above: Performed By: #### C MP #### [facility] ([facility]) [address] [place] [address] VIR ALP [Catalytic activity/Vol] 53 U/L Normal 39-130 [facility] Comment on above: Performed By: #### C MP #### [facility] ([facility]) [address] [place] [address] VIR ALT [Catalytic activity/Vol] 26 U/L Normal <=40 [facility] Comment on above: Performed By: #### C MP #### [facility] ([facility]) [address] [place] [address] VIR Anion gap [Moles/Vol] 10 mmol/L Normal 5-15 [facility] Comment on above: Performed By: #### C MP #### [facility] ([facility]) [address] [place] [address] VIR AST [Catalytic activity/Vol] 13 U/L Normal <=41 [facility] Comment on above: Performed By: #### C MP #### [facility] ([facility]) [address] [place] [address] VIR Bilirubin [Mass/Vol] 0.4 mg/dL Normal 0.3-1.2 [facility] Comment on above: Performed By: #### C MP #### [facility] ([facility]) [address] [place] [address] VIR Calcium [Mass/Vol] 8.6 mg/dL Normal 8.5-10.5 [facility] Comment on above: Performed By: #### C MP #### [facility] ([facility]) [address] [place] [address] VIR Chloride [Moles/Vol] 100 mmol/L Normal 98-109 [facility] Comment on above: Performed By: #### C MP #### [facility] ([facility]) [address] [place] [address] VIR CO2 [Moles/Vol] 28 mmol/L Normal 22-32 [facility] Comment on above: Performed By: #### C MP #### [facility] ([facility]) [address] [place] [address] VIR Creatinine [Mass/Vol] 0.65 mg/dL Normal 0.60-1.30 [facility] Comment on above: Result Comment: METH OD TRACEABLE TO IDMS STANDARD Performed By: #### C MP #### [facility] ([facility]) [address] [place] [address] VIR EGFR (CKD-EPI) NON-RACE DEPENDENT >^90 Normal >=60 [facility] Comment on above: Result Comment: Repo rted eGFR is based on the CKD-EPI 2020 equation that does not use a race coefficient. Performed By: #### C MP #### [facility] ([facility]) [address] [place] [address] VIR Glucose [Mass/Vol] 104 mg/dL High 65-99 [facility] Comment on above: Performed By: #### C MP #### [facility] ([facility]) [address] [place] [address] VIR Potassium [Moles/Vol] 4.2 mmol/L Normal 3.5-5.0 [facility] Comment on above: Performed By: #### C MP #### [facility] ([facility]) [address] [place] [address] VIR Protein [Mass/Vol] 5.8 g/dL Low 6.0-8.0 [facility] Comment on above: Performed By: #### C MP #### [facility] ([facility]) [address] [place] [address] VIR Sodium [Moles/Vol] 138 mmol/L Normal 134-146 [facility] Comment on above: Performed By: #### C MP #### [facility] ([facility]) [address] [place] [address] VIR Urea nitrogen [Mass/Vol] 25 mg/dL Normal 5-27 [facility] Comment on above: Performed By: #### C MP #### [facility] ([facility]) [address] [place] [address] VIR LACTATE W/ REFLEXon 11-09- 25 LACTATE W/REFLEX 1.1 mmol/L Normal 0.4-2.0 [facility] Comment on above: Order Comment: Resul t did not trigger repeat Lactate, re-order if needed. Performed By: #### L ACTS #### [facility] ([facility]) [address] [place] [address] VIR PROCALCITONINon 11-09-2024 PROCALCITONIN 0.08 ng/mL High <0.05 [facility] Comment on above: Order Comment: <0.50 ng/mL - Low risk of severe sepsis and/or septic shock. <2.00 ng/mL - Recommend retesting within 6-24 hours. >2.00 ng/mL - High risk of sepsis and/or septic shock. Performed By: #### P GLENDY #### [facility] ([facility]) [address] [place] [address] VIR XR CHEST 2 VWSon 11-09-2024 XR [...] Colin MD on 11/09/2024 4:20 PM Normal [facility] APTTon 11-08-2024 aPTT Coag (Bld) [Time] 25 s Low 26-37 [facility] Comment on above: Performed By: #### P TT #### [facility] ([facility]) [address] [place] [address] [place] [address] VIR B-TYPE NATRIURETIC PEPTIDEon 11-08-2024 Natriuretic peptide B (Bld) [Mass/Vol] 64 pg/mL Normal <=100 [facility] Comment on above: Performed By: #### B BANQUET DIRECTOR #### [facility] ([address] [place] [address] VIR CBC WITH AUTO DIFFERENTIALon 11-08-2024 CELLAVISION BASOPHILS ABSOLUTE COUNT (10*3/UL) BY MANUAL COUNT 0.8 10*3/uL High 0.0-0.2 [facility] Comment on above: Result Comment: This is an appended report. These results have been appended to a previously preliminary verified report. Performed By: #### C BCA #### [facility] ([facility]) [address] [place] [address] VIR CELLAVISION BASOPHILS RELATIVE PERCENT BY MANUAL COUNT 5 % Normal [facility] Comment on above: Result Comment: This is an appended report. These results have been appended to a previously preliminary verified report. Performed By: #### C BCA #### [facility] ([facility]) [address] [place] [address] VIR CELLAVISION DIFFERENTIAL TYPE CELLAVISION DIFFERENTIAL Normal [facility] Comment on above: Result Comment: This is an appended report. These results have been appended to a previously preliminary verified report. Performed By: #### C BCA #### [facility] ([facility]) [address] [place] [address] VIR CELLAVISION EOSINOPHILS ABSOLUTE COUNT (10*3/UL) BY MANUAL COUNT 0.2 10*3/uL Normal 0.0-0.4 [facility] Comment on above: Result Comment: This is an appended report. These results have been appended to a previously preliminary verified report. Performed By: #### C BCA #### [facility] ([facility]) [address] [place] [address] VIR CELLAVISION EOSINOPHILS PERCENT BY MANUAL COUNT 1 % Normal [facility] Comment on above: Result Comment: This is an appended report. These results have been appended to a previously preliminary verified report. Performed By: #### C BCA #### [facility] ([facility]) [address] [place] [address] VIR CELLAVISION LYMPHOCYTES ABSOLUTE COUNT (10*3/UL) BY MANUAL COUNT 1.7 10*3/uL Normal 1.0-3.5 [facility] Comment on above: Result Comment: This is an appended report. These results have been appended to a previously preliminary verified report. Performed By: #### C BCA #### [facility] ([facility]) [address] [place] [address] VIR CELLAVISION LYMPHOCYTES RELATIVE PERCENT BY MANUAL COUNT 9 % Normal [facility] Comment on above: Result Comment: This is an appended report. These results have been appended to a previously preliminary verified report. Performed By: #### C BCA #### [facility] ([facility]) [address] [place] [address] VIR CELLAVISION MONOCYTES ABSOLUTE COUNT (10*3/UL) IN BLOOD BY MANUAL COUNT 0.5 10*3/uL Normal 0.0-0.9 [facility] Comment on above: Result Comment: This is an appended report. These results have been appended to a previously preliminary verified report. Performed By: #### C BCA #### [facility] ([address] [address] VIR CELLAVISION MONOCYTES RELATIVE PERCENT BY MANUAL COUNT 3 % Normal [facility] Comment on above: Result Comment: This is an appended report. These results have been appended to a previously preliminary verified report. Performed By: #### C BCA #### [facility] ([address] [address] VIR CELLAVISION NEUTROPHILS ABSOLUTE COUNT BY MANUAL COUNT 14.4 10*3/uL High 1.5-6.6 [facility] Comment on above: Result Comment: This is an appended report. These results have been appended to a previously preliminary verified report. Performed By: #### C BCA #### [facility] ([facility]) [address] [place] [address] [address] VIR CELLAVISION NEUTROPHILS RELATIVE PERCENT BY MANUAL COUNT 80 % Normal [facility] Comment on above: Result Comment: This is an appended report. These results have been appended to a previously preliminary verified report. Performed By: #### C BCA #### [facility] ([facility]) [address] [place] [id number] VIR CELLAVISION PROMYELOCYTES RELATIVE PERCENT BY MANUAL COUNT 2 % Normal [facility] Comment on above: Result Comment: This is an appended report. These results have been appended to a previously preliminary verified report. Performed By: #### C BCA #### [facility] ([address] [address] VIR Erythrocyte distribution width (RBC) [Ratio] 16.7 % High 11.5-15 [facility] Comment on above: Performed By: #### C BCA #### [facility] ([address] [address] VIR Hematocrit (Bld) [Volume fraction] 36.6 % Low 39-50 [facility] Comment on above: Performed By: #### C BCA #### [facility] ([address] [address] VIR Hemoglobin (Bld) [Mass/Vol] 12.1 g/dL Low 13-17 [facility] Comment on above: Performed By: #### C BCA #### [facility] ([address] [address] VIR MCH (RBC) [Entitic mass] 27.6 pg Normal 27-34 [facility] Comment on above: Performed By: #### C BCA #### [facility] ([address] [address] VIR MCHC (RBC) [Mass/Vol] 32.9 g/dL Normal 32-36 [facility] Comment on above: Performed By: #### C BCA #### [facility] ([address] [address] VIR MCV (RBC) [Entitic vol] 84 fL Normal 80-100 [facility] Comment on above: Performed By: #### C BCA #### [facility] ([facility]) [address] [place] [address] VIR Platelet mean volume (Bld) [Entitic vol] 6.9 fL Low 7-12 [facility] Comment on above: Performed By: #### C BCA #### [facility] ([address] [place] [address] VIR Platelets (Bld) [#/Vol] 281 10*3/uL Normal 150-450 [facility] Comment on above: Performed By: #### C BCA #### [facility] ([facility]) [address] [place] [address] [place] [address] VIR RBC COUNT 4.37 X10E12/L Normal 4.1-5.7 [facility] Comment on above: Performed By: #### C BCA #### [facility] ([address] [place] [address] VIR WBC (Bld) [#/Vol] 18.0 10*3/uL High 4-11 [facility] Comment on above: Performed By: #### C BCA #### [facility] ([address] [place] [address] VIR COMPREHENSIVE METABOLIC PANE Paul 11-08-2024 Albumin [Mass/Vol] 3.1 g/dL Low 3.2-5.3 [facility] Comment on above: Performed By: #### C MP #### [facility] ([address] [place] [address] VIR ALP [Catalytic activity/Vol] 60 U/L Normal 39-130 [facility] Comment on above: Performed By: #### C MP #### [facility] ([address] [place] [address] VIR ALT [Catalytic activity/Vol] 41 U/L High <=40 [facility] Comment on above: Performed By: #### C MP #### [facility] ([address] [place] [address] VIR Anion gap [Moles/Vol] 9 mmol/L Normal 5-15 [facility] Comment on above: Performed By: #### C MP #### [facility] ([address] [place] [address] VIR AST [Catalytic activity/Vol] 19 U/L Normal <=41 [facility] Comment on above: Performed By: #### C MP #### [facility] ([address] [place] [address] VIR Bilirubin [Mass/Vol] 0.5 mg/dL Normal 0.3-1.2 [facility] Comment on above: Performed By: #### C MP #### [facility] ([address] [place] [address] VIR Calcium [Mass/Vol] 8.5 mg/dL Normal 8.5-10.5 [facility] Comment on above: Performed By: #### C MP #### [facility] ([address] [place] [address] VIR Chloride [Moles/Vol] 96 mmol/L Low 98-109 [facility] Comment on above: Performed By: #### C MP #### [facility] ([address] [place] [address] VIR CO2 [Moles/Vol] 24 mmol/L Normal 22-32 [facility] Comment on above: Performed By: #### C MP #### [facility] ([address] [place] [address] VIR Creatinine [Mass/Vol] 0.84 mg/dL Normal 0.70-1.20 [facility] Comment on above: Result Comment: METH OD TRACEABLE TO IDMS STANDARD Performed By: #### C MP #### [facility] ([address] [place] [address] VIR EGFR (CKD-EPI) NON-RACE DEPENDENT >^90 Normal >=60 [facility] Comment on above: Result Comment: eGFR not reported due to non-numeric value for Creatinine. Reported eGFR is based on the CKD-EPI 2020 equation that does not use a race coefficient. Performed By: #### C MP #### [facility] ([facility]) [address] [place] [address] VIR Glucose [Mass/Vol] 134 mg/dL High 65-99 [facility] Comment on above: Performed By: #### C MP #### [facility] ([address] [place] [address] VIR Potassium [Moles/Vol] 4.2 mmol/L Normal 3.5-5.0 [facility] Comment on above: Performed By: #### C MP #### [facility] ([address] [place] [address] VIR Protein [Mass/Vol] 6.7 g/dL Normal 6.0-8.0 [facility] Comment on above: Performed By: #### C MP #### [facility] ([address] [place] [address] VIR Sodium [Moles/Vol] 129 mmol/L Low 134-146 [facility] Comment on above: Performed By: #### C MP #### [facility] ([address] [place] [address] VIR Urea nitrogen [Mass/Vol] 30 mg/dL High 5-27 [facility] Comment on above: Performed By: #### C MP #### [facility] ([address] [place] [address] VIR D-DIMERon 11-08-2024 D DIMER 175 ug/mL Normal 1-255 [facility] Comment on above: Result Comment: Resu lts <255 ng/mL DDU: The presensence of a VTE can safely be excluded with a negative D-Dimer result and Wells score. A negative result doesn't exclude the possibility of DIC. The test should be repeated along with other diagnostic tests if the patient's symptoms persist or worsen. Performed By: #### D DMR #### [facility] ([facility]) [address] [place] [address] VIR Family Medicine Office/Clini c Noteon 11-08-2024 Family Medicine Office/Clinic Note Family Medicine Office/Clinic Note HPI Staff Jatin is a 64 year old male presenting for ER follow up [facility] Hospital: [facility] Visit date: 11/04/24 Discharge: 11/06/24 Discharge Dx: [...] lung cancer. will be following oncology at [facility] 4. Syncope (R55: Syncope and collapse) pt has halter monitor on is scheduled to see cardiology at 2:40 today 5. BMI 32.0-32.9,adult (Z68.32: Body mass index [BMI] 32.0-32.9, adult) BMI educaiton Ordered: TCM [facility] 7 day disch [id number] 6. 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 Kidney stones Microhematuria [...] virus vaccine, inactivated 03/14/2017 Recorded Normal [facility] Comment on above: Result Comment: Elec tronically Signed By: Dennis CURRIE, Carlos Fowler\.br\Date and Time Signed: 11/08/24 11:40 EDT MAGNESIUMon 11-08-2024 Magnesium [Mass/Vol] 2.1 mg/dL Normal 1.8-2.6 [facility] Comment on above: Performed By: #### M G #### [facility] ([address] [address] VIR POCT EKGOrdered By: Victoria Collado on 11-08-2024 [facility] PROTIME AND INRon 11-08-2024 INR 1.1 Normal 0.9-1.2 [facility] Comment on above: Performed By: #### P INR #### [facility] ([address] [address] VIR PT Coag (PPP) [Time] 12.4 s Normal 9.8-13.2 [facility] Comment on above: Performed By: #### P INR #### [facility] ([address] [address] VIR THYROID PROFILE INCLUDES TSH FT4on 11-08-2024 Free T4 [Mass/Vol] 0.88 ng/dL Normal 0.61-1.60 [facility] Comment on above: Performed By: #### T HYR #### [facility]) [address] [place] [address] VIR TSH 0.66 uIU/mL Normal 0.49-4.67 [facility] Comment on above: Performed By: #### T HYR #### [facility] ([address] [place] [address] VIR TROP I, HIGH SENSITIVITY 1 H OURon 11-08-2024 TROPONIN I, HIGH SENSITIVITY 4 ng/L Normal <21 [facility] Comment on above: Performed By: #### P TT #### [facility] ([address] [place] [address] VIR TROPONIN I, HIGH SENSITIVITY 0 HOURon 11-08-2024 TROPONIN I, HIGH SENSITIVITY 4 ng/L Normal <21 [facility] Comment on above: Performed By: #### T NIHS0 #### [facility] ([address] [place] [address] VIR XR CHEST 1 VWon 11-08-2024 XR [...] Fatima MD on 11/08/2024 5:03 PM Normal [facility] CNPNon 11-07-2024 CNPN Normal [facility] CNPNon 11-01-2024 CNPN Normal [facility] CNCNPATEDon 10-30-2024 CNCNPATED Normal [facility] CNOVSPon 10-27-2024 CNOVSP Normal [facility] CNPNon 10-27-2024 CNPN Normal [facility] NM PET w/ CT Scan Skull Base [...] PET w/ CT Scan Skull Base to [facility] DATE: 10/18/2024 4:00 PM CLINICAL HISTORY: R91.8. COMPARISON: Outside chest CTA 10/06/2024.. TECHNIQUE: Imaging was obtained from the base of the skull to the mid thigh on a dedicated PET CT unit. Using the tiltrotor crew chief\X2019\s standard software, data were reconstructed using filtered [...] MD Transcribed by: [place] Technologist: SIGRID [facility] No Panel InformationOrdered By: Chip Carbajal on 10-16-2024 Miscellaneous Pathology Test See comment [facility] Comment on above: See report. Scanned copy available in EMR. Pathology Request for Lab Co rpon 10-16-2024 Pathology Request for Lab Kaycee Normal [facility] Comment on above: Order Comment: BRONC H BX Result Comment: See report. Scanned copy available in EMR. PERFORMED BY: [place] [address] PATHOLOGIST SEARCH ENGINE OPTIMIZATION STRATEGIST ANA LILIA MCLEAN M.D. 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 pt was recently at [facility] ER. Had CT scan of lungs. he [...] (more content not included)... Normal [facility] Comment on above: Result Comment: Elec tronically Signed By: Carlos Sethi\.tomy\Date and Time Signed: 10/13/24 12:40 EDT URINALYSIS MICROSCOPIC WITH REFLEX CULTUREon 10-07-2024 BACTERIA URINE TRACE Abnormal NONE SEEN #/HPF [facility] BILIRUBIN URINE Negative NEGATIVE [facility] BLOOD URINE TRACE-I NEGATIVE [facility] CAST SEEN? NONE SEEN NONE SEEN #/LPF [facility] Clarity (U) CLEAR CLEAR [facility] Color (U) LT. YELLOW YELLOW [facility] CRYSTALS SEEN? None Seen None Seen #/HPF [facility] GLUCOSE URINE UA Negative NEGATIVE mg/dL [facility] Interpretation and review of laboratory results Abnormal [facility] Ketones Ql (U) TRACE Abnormal NEGATIVE mg/dL [facility] Leukocyte esterase Test strip Ql (U) Negative NEGATIVE [facility] MUCUS URINE NONE SEEN NONE SEEN [facility] NITRITE URINE Negative NEGATIVE [facility] pH (U) 6.0 [pH] 5.0 - 9.0 [facility] PROTEIN URINE Negative NEG/TRACE mg/dL [facility] SPECIFIC GRAVITY URINE 1.010 1.005 - 1.025 [facility] SQUAMOUS EPITHELIAL CELL URINE RARE NONE/RARE #/LPF [facility] TBH RBC 0-2 [facility] WBC 0-2 Abnormal NONE SEEN #/HPF [facility] URINE CULTURE INDICATED NO N [facility] UROBILINOGEN URINE 0.2 EU/dL 0.2 - 1.0 EU/dL [facility]IS[facility] COVID Cepheidon 09-08-2024 SARS-CoV-2 (COVID-19) RNA SHIRA+probe Ql (Unsp spec) [facility] - Microbiology an d Antimicrobial susceptibilityon 09-08-2024 SARS-CoV-2 (COVID-19) RNA SHIRA+probe Ql (Unsp spec) Negative [facility] No Panel Informationon 09-08 POC Influenza A (PCR) Positive [facility] POC Influenza B (PCR) Negative [facility] X-ray reportOrdered By: Neri Lewis on 08-31-2024 Study report [facility] [place] [address] XRay Report Signed Patient: Jatin Koch II MR#: [id number] : 1960 Acct:[id number] Age/Sex: 63 / M ADM Date: 5 Loc: XDUCLY Room: Type: [facility] Attending Dr: Tonja De Oliveira FORENSIC MEDICAL EXAMINER Copies to: Tonja De Oliveira APRN~ Ordering Provider: Tonja De Oliveira APRN Date of Service: 08/31/24 XR/XR chest 2V*: COUGH Chest 2 views CLINICAL HISTORY: Dry cough for 2 months. COMPARISON: None FINDINGS: Heart normal size. Lungs are clear. No free air. XR/XR chest 2V* IMPRESSION: NO ACUTE CARDIOPULMONARY ABNORMALITY. Impression dictated by: Neftali Lewis Jr., D.O.08/31/2024 10:22 AM Dictation Location: RADIO-PC-22 Transcribed By: TANESHA 08/31/24 1022 Dictated By: Neftali Lewis Jr, DO 08/31/24 1022 Signed By: 08/31/24 1022 [facility] XR chest 2V*on 08-31-2024 XR chest 2V* [facility] Main [place] [address] [place] [address] XRay Report Signed Patient: Jatin Koch II MR#: [id number] : 1960 Acct:[id number] Age/Sex: 63 / M ADM Date: 08/31/24 Loc: XDUC Room: Type: [facility] Attending Dr: Tonja De Oliveira APRN Copies to: Tonja De Oliveira APRN Ordering Provider: Tonja eD Oliveira APRN Date of Service: 08/31/24 XR/XR chest 2V*: COUGH Chest 2 views CLINICAL HISTORY: Dry cough for 2 months. COMPARISON: None FINDINGS: Heart normal size. Lungs are clear. No free air. XR/XR chest 2V* IMPRESSION: NO ACUTE CARDIOPULMONARY ABNORMALITY. Impression dictated by: Neftali Lewis Jr., D.O.08/31/2024 10:22 AM Dictation Location: RADIO-PC-22 Transcribed By: TANESHA 08/31/24 1022 Dictated By: Neftali Lewis Jr, DO 08/31/24 1022 Signed By: 08/31/24 1022 Normal [facility] CBC AUTO DIFFon 11-10-2022 BASO # 0.1 103/ul Normal 0.0-0.1 [facility] Comment on above: Performed By: #### C BC #### [facility] [address] [address] [address] Jenny Stone Basophils/100 WBC (Bld) 0.6 % Normal 0.2-2.0 [facility] Comment on above: Performed By: #### C BC #### [facility] [address] [address] [address] Jenny Stone EO # 0.2 103/ul Normal 0.0-0.7 [facility] Comment on above: Performed By: #### C BC #### [facility] [address] [place] [address] Dr. Jenny Stone Eosinophils/100 WBC (Bld) 2.4 % Normal 0.9-7.0 [facility] Comment on above: Performed By: #### C BC #### [facility] [address] [place] [address] Dr. Jenny Stone Erythrocyte distribution width (RBC) [Ratio] 13.0 % Normal 11.0-15.0 [facility] Comment on above: Performed By: #### C BC #### [facility] [address] [place] [address] Dr. Jenny Stone Hematocrit (Bld) [Volume fraction] 46.1 % Normal 42.0-54.0 [facility] Comment on above: Performed By: #### C BC #### [facility] [address] [place] [address] Dr. Jenny Stone Hemoglobin (Bld) [Mass/Vol] 15.2 g/dL Normal 14.0-18.0 [facility] Comment on above: Performed By: #### C BC #### [facility] [address] [place] [address] Dr. Jenny Stone IG # 0.04 10e3/ul Critically high 0.00-0.03 [facility] Comment on above: Performed By: #### C BC #### [facility] [address] [place] [address] Dr. Jenny Stone IG % 0.5 % Normal 0.0-0.[address] [facility] Comment on above: Performed By: #### C BC #### [facility] [address] [place] [address] Dr. Jenny Stone LYMPH # 2.5 103/ul Normal 1.2-3.[address] [facility] Comment on above: Performed By: #### C BC #### [facility] [address] [place] [address] Dr. Jenny Stone Lymphocytes/100 WBC (Bld) 32.4 % Normal 20.5-60.0 [facility] Comment on above: Performed By: #### C BC #### [facility] [address] [place] [address] Dr. Jenny Stone MANUAL DIFF REQ NO Normal [facility] Comment on above: Performed By: #### C BC #### [facility] [address] [place] [address] Dr. Jenny Stone MCH (RBC) [Entitic mass] 29.6 pg Normal 25.9-34.0 [facility] Comment on above: Performed By: #### C BC #### [facility] [address] [place] [address] Dr. Jenny Stone MCHC (RBC) [Mass/Vol] 33.0 g/dL Normal 29.9-35.2 [facility] Comment on above: Performed By: #### C BC #### [facility] [address] [place] [address] Dr. Jenny Stone MCV (RBC) [Entitic vol] 89.7 fL Normal 80.0-94.0 [facility] Comment on above: Performed By: #### C BC #### [facility] [address] [place] [address] Dr. Jenny Stone MONO # 0.7 103/ul Normal 0.3-0.8 [facility] Comment on above: Performed By: #### C BC #### [facility] [address] [place] [address] Dr. Jenny Stone Monocytes/100 WBC (Bld) 8.6 % Normal 1.7-12.0 [facility] Comment on above: Performed By: #### C BC #### [facility] [address] [place] [address] Dr. Jenny Stone NEUT # 4.3 103/ul Normal 1.4-6.5 [facility] Comment on above: Performed By: #### C BC #### [facility] [address] [place] [address] Dr. Jenny Stone Neutrophils/100 WBC (Bld) 55.5 % Normal 43.0-75.0 [facility] Comment on above: Performed By: #### C BC #### [facility] [address] [address] [address] Jenny Stone Platelet mean volume (Bld) [Entitic vol] 9.9 fL Normal 9.5-13.5 [facility] Comment on above: Performed By: #### C BC #### [facility] [address] [place] [address] Dr. Jenny Stone PLT 177 103/ul Normal 150-[address] [facility] Comment on above: Performed By: #### C BC #### [facility] [address] [place] [address] Dr. Jenny Stone RBC 5.14 106/ul Normal 4.70-6.[address] [facility] Comment on above: Performed By: #### C BC #### [facility] [address] [place] [address] Dr. Jenny Stone WBC 7.8 103/ul Normal 4.0-11.0 [facility] Comment on above: Performed By: #### C BC #### [facility] [address] [place] [address] Dr. Jenny Stone LIPID PROFILEon 11-10-2022 CHOL-HDL RATIO NORM SEE BELOW Normal [facility] Comment on above: Result Comment: 3.3 - 4.4 LOW RISK 4.4 - 7.1 AVERAGE RISK 7.1 - 11.0 MODERATE RISK >11.0 HIGH RISK Performed By: #### C MP, LIPID #### [facility] [address] [place] [address] Dr. Jenny Stone Cholesterol [Mass/Vol] 203 mg/dL Critically high <=[address] [facility] Comment on above: Performed By: #### C MP, LIPID #### [facility] [address] [place] [address] Dr. Jenny Stone Cholesterol in HDL [Mass/Vol] 40 mg/dL Normal 40-60 [facility] Comment on above: Performed By: #### C MP, LIPID #### [facility] [address] [place] [address] Dr. Jenny Stone Cholesterol in LDL [Mass/Vol] 142.2 mg/dL Normal [facility] Comment on above: Performed By: #### C MP, LIPID #### [facility] [address] [place] [address] Dr. Jenny Stone Cholesterol.total/Kareen sterol in HDL [Mass ratio] 5.1 {ratio} Normal [facility] Comment on above: Performed By: #### C MP, LIPID #### [facility] [address] [place] [address] Dr. Jenny Stone HDL NORMAL > or = 60 mg/dl - LO W CARDIOVASCULAR RISK <40 mg/dl - HIGH CARDIOVASCULAR RISK Normal [facility] Comment on above: Performed By: #### C MP, LIPID #### [facility] [address] [place] [address] Dr. Jenny Stone LDL CALC NORMAL SEE BELOW Normal [facility] Comment on above: Result Comment: <100 mg/dl OPTIMAL 100 - 129 mg/dl NEAR OR ABOVE OPTIMAL 130 - 159 mg/dl BORDERLINE HIGH 160 - 189 mg/dl HIGH >190 mg/dl VERY HIGH Performed By: #### C MP, LIPID #### [facility] [address] [place] [address] Dr. Jenny Stone Triglyceride [Mass/Vol] 104 mg/dL Normal <=150 T [facility] Comment on above: Performed By: #### C MP, LIPID #### [facility] [address] [place] [address] Dr. Jenny Stone VLDL CALC 20.8 mg/dL Normal [facility] Comment on above: Performed By: #### C MP, LIPID #### [facility] [address] [place] [address] Dr. Jenny Stone PROF 14(COMP METB)on 023 Albumin [Mass/Vol] 3.9 g/dL Normal 3.4-5.0 [facility] Comment on above: Performed By: #### C MP, LIPID #### [facility] [address] [place] [address] Dr. Jenny Stone Albumin/Globulin [Mass ratio] 1.1 {ratio} Normal [facility] Comment on above: Performed By: #### C MP, LIPID #### [facility] [address] [place] [address] Dr. Jenny Stone ALP [Catalytic activity/Vol] 70 U/L Normal 46-116 [facility] Comment on above: Performed By: #### C MP, LIPID #### [facility] [address] [place] [address] Dr. Jenny Stone ALT [Catalytic activity/Vol] 39 U/L Normal 16-63 [facility] Comment on above: Performed By: #### C MP, LIPID #### [facility] [address] [place] [address] Dr. Jenny Stone Anion gap [Moles/Vol] 14.2 mmol/L Normal [facility] Comment on above: Performed By: #### C MP, LIPID #### [facility] [address] [place] [address] Dr. Jenny Stone AST [Catalytic activity/Vol] 23 U/L Normal 15-37 [facility] Comment on above: Performed By: #### C MP, LIPID #### [facility] [address] [place] [address] Dr. Jenny Stone Bilirubin [Mass/Vol] 0.3 mg/dL Normal 0.2-1.0 [facility] Comment on above: Performed By: #### C MP, LIPID #### [facility] [address] [place] [address] Dr. Jenny Stone Calcium [Mass/Vol] 8.5 mg/dL Normal 8.5-10.1 [facility] Comment on above: Performed By: #### C MP, LIPID #### [facility] [address] [place] [address] Dr. Jenny Stone Chloride [Moles/Vol] 102 mmol/L Normal 98-107 [facility] Comment on above: Performed By: #### C MP, LIPID #### [facility] [address] [place] [address] Dr. Jenny Stone CO2 [Moles/Vol] 30.1 mmol/L Normal 21.0-32.0 [facility] Comment on above: Performed By: #### C MP, LIPID #### [facility] [address] [address] [address] Jenny Stone Creatinine [Mass/Vol] 1.00 mg/dL Normal 0.70-1.30 [facility] Comment on above: Performed By: #### C MP, LIPID #### [facility] [address] [address] [address] Jenny Stone EGFR-AF MOLDOVAN >60 Normal >=60 [facility] Comment on above: Performed By: #### C MP, LIPID #### [facility] [address] [address] [address] Jenny Stone EGFR-NON AF MOLDOVAN >60 Normal >=60 [facility] Comment on above: Performed By: #### C MP, LIPID #### [facility] [address] [address] [address] Jenny Stone Globulin (S) [Mass/Vol] 3.5 g/dL Normal T [facility] Comment on above: Performed By: #### C MP, LIPID #### [facility] [address] [address] [address] Jenny Stone Glucose [Mass/Vol] 89 mg/dL Normal 74-106 [facility] Comment on above: Performed By: #### C MP, LIPID #### [facility] [address] [address] [address] Jenny Stone Potassium [Moles/Vol] 4.3 mmol/L Normal 3.5-5.1 [facility] Comment on above: Performed By: #### C MP, LIPID #### [facility] [address] [address] [address] Jenny Stone Protein [Mass/Vol] 7.4 g/dL Normal 6.4-8.2 [facility] Comment on above: Performed By: #### C MP, LIPID #### [facility] [address] [address] [address] Jenny Stone Sodium [Moles/Vol] 142 mmol/L Normal 136-145 [facility] Comment on above: Performed By: #### C MP, LIPID #### [facility] [address] [place], [place] [address] Dr. Jenny Stone Urea nitrogen [Mass/Vol] 17.0 mg/dL Normal 7.0-18.0 [facility] Comment on above: Performed By: #### C MP, LIPID #### [facility] [address] [place], [place] [address] Dr. Jenny Stone Urea nitrogen/Creatinine [Mass ratio] 17.0 mg/mg Normal [facility] Comment on above: Performed By: #### C MP, LIPID #### [facility] [address] [place], [place] [address] Dr. Jenny Stone US KIDNEYSon 07-01-2022 US KIDNEYS US KIDNEYS EXAM DATE: 06/30/2022 5:55 AM MST COMPARISON: Ultrasound kidney 05/30/2021 INDICATION: Acquired renal cystic disease. TECHNIQUE: Real-time ultrasound scanning of the kidneys and bladder was performed by the sand caster apprentice. Customer Assistant static images are submitted for review. FINDINGS: [...] by: WEI ASH Date: 2022-06-30 23:29 Normal [facility] XR KUB 1 VIEWon 07-01-2022 [...] by: FREIDA PEREZ Date: 2022-07-01 06:59 Normal [facility] Vital Signs Date Time Vital Sign Value Performing Clinician David richey 02-22-2025 11:45-0400 Body temperature 97.9 [degF] [place] Work Phone: [facility] 02-22-2025 11:45-0400 Diastolic blood pressure 62 mm[Hg] [place] Work Phone: [facility] 02-22-2025 11:45-0400 Heart rate 116 /min [place] Work Phone: [facility] 02-22-2025 11:45-0400 Respiratory rate 16 /min [place] Work Phone: [facility] 02-22-2025 11:45-0400 SaO2% (BldA) [Mass fraction] 100 % [facility] Work Phone: [facility] 02-22-2025 11:45-0400 Systolic blood pressure 98 mm[Hg] [place] Work Phone: [facility] 02-21-2025 09:29-0400 Body height 171.6 cm Rasheed Perez MD Work Phone: [facility] 02-21-2025 09:29-0400 Body mass index (BMI) [Ratio] 24.65 kg/m2 Rasheed Perez MD Work Phone: [facility] 02-21-2025 09:29-0400 Body temperature 97.39 [degF] Rasheed Perez MD Work Phone: [facility] 02-21-2025 09:29-0400 Body weight 72.58 kg Rasheed Perez MD Work Phone: [facility] 02-21-2025 09:29-0400 Diastolic blood pressure 72 mm[Hg] Rasheed Perez MD Work Phone: [facility] 02-21-2025 09:29-0400 Heart rate 107 /min Rasheed Perez MD Work Phone: [facility] 02-21-2025 09:29-0400 Respiratory rate 16 /min Rasheed Perez MD Work Phone: [facility] 02-21-2025 09:29-0400 SaO2% (BldA) [Mass fraction] 99 % Rasheed Perez MD Work Phone: [facility] 02-21-2025 09:29-0400 Systolic blood pressure 112 mm[Hg] Rasheed Perez MD Work Phone: [facility] 02-20-2025 10:42-0400 Body mass index (BMI) [Ratio] 24.48 kg/m2 Sheila [place] Copperridge FORENSIC MEDICAL EXAMINER.DEPARTMENT OPERATIONS MANAGER Work Phone: [facility] 02-20-2025 10:42-0400 Body temperature 97.39 [degF] Sheila Bundridge FORENSIC MEDICAL EXAMINER.DEPARTMENT OPERATIONS MANAGER Work Phone: [facility] 02-20-2025 10:42-0400 Body weight 72 kg Sheila Bundridge FORENSIC MEDICAL EXAMINER.DEPARTMENT OPERATIONS MANAGER Work Phone: [facility] 02-20-2025 10:42-0400 Diastolic blood pressure 61 mm[Hg] Sheila Bundridge FORENSIC MEDICAL EXAMINER.DEPARTMENT OPERATIONS MANAGER Work Phone: [facility] 02-20-2025 10:42-0400 Heart rate 114 /min Sheila Bundridge FORENSIC MEDICAL EXAMINER.DEPARTMENT OPERATIONS MANAGER Work Phone: [facility] 02-20-2025 10:42-0400 Respiratory rate 16 /min Sheila Bundridge FORENSIC MEDICAL EXAMINER.DEPARTMENT OPERATIONS MANAGER Work Phone: [facility] 02-20-2025 10:42-0400 SaO2% (BldA) [Mass fraction] 99 % Sheila Bundridge FORENSIC MEDICAL EXAMINER.DEPARTMENT OPERATIONS MANAGER Work Phone: [facility] 02-20-2025 10:42-0400 Systolic blood pressure 94 mm[Hg] Sheila Bundridge FORENSIC MEDICAL EXAMINER.DEPARTMENT OPERATIONS MANAGER Work Phone: [facility] 02-14-2025 11:20-0400 Body height 171.5 cm Tristin Silvia FORENSIC MEDICAL EXAMINER.DEPARTMENT OPERATIONS MANAGER Work Phone: [facility] 02-14-2025 11:20-0400 Body mass index (BMI) [Ratio] 24.52 kg/m2 Tristin Silvia FORENSIC MEDICAL EXAMINER.DEPARTMENT OPERATIONS MANAGER Work Phone: [facility] 02-14-2025 11:20-0400 Body temperature 97 [degF] Tristin Silvia FORENSIC MEDICAL EXAMINER.DEPARTMENT OPERATIONS MANAGER Work Phone: [facility] 02-14-2025 11:20-0400 Body weight 72.12 kg Tristin Silvia FORENSIC MEDICAL EXAMINER.DEPARTMENT OPERATIONS MANAGER Work Phone: [facility] 02-14-2025 11:20-0400 Diastolic blood pressure 69 mm[Hg] Tristin Silvia FORENSIC MEDICAL EXAMINER.DEPARTMENT OPERATIONS MANAGER Work Phone: [facility] 02-14-2025 11:20-0400 Heart rate 123 /min Tristin Silvia FORENSIC MEDICAL EXAMINER.DEPARTMENT OPERATIONS MANAGER Work Phone: [facility] 02-14-2025 11:20-0400 Respiratory rate 16 /min Tristin Silvia FORENSIC MEDICAL EXAMINER.DEPARTMENT OPERATIONS MANAGER Work Phone: [facility] 02-14-2025 11:20-0400 SaO2% (BldA) [Mass fraction] 99 % Tristin Silvia FORENSIC MEDICAL EXAMINER.DEPARTMENT OPERATIONS MANAGER Work Phone: [facility] 02-14-2025 11:20-0400 Systolic blood pressure 100 mm[Hg] Tristin Wong APRN.CNP Work Phone: [facility] 02-14-2025 10:07-0400 Body mass index (BMI) [Ratio] 24.58 kg/m2 Ezra Lizama MD Work Phone: [facility] 02-14-2025 10:07-0400 Body temperature 96.6 [degF] Ezra Lizama MD Work Phone: [facility] 02-14-2025 10:07-0400 Body weight 72.3 kg Ezar Lizama MD Work Phone: [facility] 02-14-2025 10:07-0400 Diastolic blood pressure 66 mm[Hg] Ezra Lizama MD Work Phone: [facility] 02-14-2025 10:07-0400 Heart rate 117 /min Ezra Lizama MD Work Phone: [facility] 02-14-2025 10:07-0400 Respiratory rate 18 /min Ezra Lizama MD Work Phone: [facility] 02-14-2025 10:07-0400 SaO2% (BldA) [Mass fraction] 98 % Ezra Lizama MD Work Phone: [facility] 02-14-2025 10:07-0400 Systolic blood pressure 105 mm[Hg] Ezra Lizama MD Work Phone: [facility] 02-13-2025 12:47-0400 Diastolic blood pressure 61 mm[Hg] Nurse Garcia Work Phone: [facility] 02-13-2025 12:47-0400 Heart rate 123 /min Nurse Mae Work Phone: [facility] 02-13-2025 12:47-0400 Respiratory rate 18 /min Nurse Garcia Work Phone: [facility] 02-13-2025 12:47-0400 SaO2% (BldA) [Mass fraction] 98 % Nurse Mae Work Phone: [facility] 02-13-2025 12:47-0400 Systolic blood pressure 91 mm[Hg] Nurse Mae Work Phone: [facility] 02-09-2025 16:01-0400 Body height 172.7 cm Shola Prabhakarhart FORENSIC MEDICAL EXAMINER-DEPARTMENT OPERATIONS MANAGER Work Phone: [facility] 02-09-2025 16:01-0400 Body mass index (BMI) [Ratio] 25.24 kg/m2 Shola Milan FORENSIC MEDICAL EXAMINER-DEPARTMENT OPERATIONS MANAGER Work Phone: [facility] 02-09-2025 16:01-0400 Body weight 75.3 kg Shola Torret FORENSIC MEDICAL EXAMINER-DEPARTMENT OPERATIONS MANAGER Work Phone: [facility] 02-09-2025 16:01-0400 Diastolic blood pressure 58 mm[Hg] Shola Bjorn FORENSIC MEDICAL EXAMINER-DEPARTMENT OPERATIONS MANAGER Work Phone: [facility] 02-09-2025 16:01-0400 Heart rate 117 /min Shola Milan FORENSIC MEDICAL EXAMINER-DEPARTMENT OPERATIONS MANAGER Work Phone: [facility] 02-09-2025 16:01-0400 Systolic blood pressure 96 mm[Hg] Shola Torret FORENSIC MEDICAL EXAMINER-DEPARTMENT OPERATIONS MANAGER Work Phone: [facility] 02-09-2025 10:56-0400 Body temperature 97.5 [degF] Chair Mae Work Phone: [facility] 02-09-2025 10:56-0400 Diastolic blood pressure 60 mm[Hg] Chair aMe Work Phone: [facility] 02-09-2025 10:56-0400 Heart rate 113 /min [place] Work Phone: [facility] Comment on above: controlled a-fib with HR 70-113; pt to s ee cardiology this afternoon 02-09-2025 10:56-0400 Respiratory rate 18 /min Chair Mae Work Phone: [facility] 02-09-2025 10:56-0400 SaO2% (BldA) [Mass fraction] 98 % Chair Mae Work Phone: [facility] 02-09-2025 10:56-0400 Systolic blood pressure 94 mm[Hg] Chair [place] Work Phone: [facility] 02-08-2025 12:19-0400 Body temperature 97.9 [degF] Chair Mae Work Phone: [facility] 02-08-2025 12:19-0400 Diastolic blood pressure 74 mm[Hg] Chair [place] Work Phone: [facility] 02-08-2025 12:19-0400 Heart rate 94 /min Chair [place] Work Phone: [facility] 02-08-2025 12:19-0400 Respiratory rate 16 /min [place] Work Phone: [facility] 02-08-2025 12:19-0400 SaO2% (BldA) [Mass fraction] 97 % Chair Mae Work Phone: [facility] 02-08-2025 12:19-0400 Systolic blood pressure 137 mm[Hg] Chair [place] Work Phone: [facility] 02-07-2025 12:19-0400 Body temperature 96.91 [degF] Ezra Lizama MD Work Phone: [facility] 02-07-2025 12:19-0400 Diastolic blood pressure 77 mm[Hg] Ezra Lizama MD Work Phone: [facility] 02-07-2025 12:19-0400 Heart rate 82 /min Ezra Lizama MD Work Phone: [facility] 02-07-2025 12:19-0400 Respiratory rate 16 /min Ezra Lizama MD Work Phone: [facility] 02-07-2025 12:19-0400 SaO2% (BldA) [Mass fraction] 98 % Ezra Lizama MD Work Phone: [facility] 02-07-2025 12:19-0400 Systolic blood pressure 132 mm[Hg] Ezra Lizama MD Work Phone: [facility] 02-06-2025 13:10-0400 Body temperature 98.01 [degF] Chair [place] Work Phone: [facility] 02-06-2025 13:10-0400 Diastolic blood pressure 73 mm[Hg] Chair Mae Work Phone: [facility] 02-06-2025 13:10-0400 Heart rate 84 /min Chair [place] Work Phone: [facility] 02-06-2025 13:10-0400 Respiratory rate 16 /min Chair [place] Work Phone: [facility] 02-06-2025 13:10-0400 SaO2% (BldA) [Mass fraction] 98 % Chair [place] Work Phone: [facility] 02-06-2025 13:10-0400 Systolic blood pressure 118 mm[Hg] Chair [place] Work Phone: [facility] 02-05-2025 09:19-0400 Body height 171.5 cm Rasheed Perez MD Work Phone: [facility] 02-05-2025 09:19-0400 Body mass index (BMI) [Ratio] 25.02 kg/m2 Rasheed Perez MD Work Phone: [facility] 02-05-2025 09:19-0400 Body temperature 97.81 [degF] Rasheed Perez MD Work Phone: [facility] 02-05-2025 09:19-0400 Body weight 73.6 kg Rasheed Perez MD Work Phone: [facility] 02-05-2025 09:19-0400 Diastolic blood pressure 63 mm[Hg] Rasheed Perez MD Work Phone: [facility] 02-05-2025 09:19-0400 Heart rate 112 /min Rasheed Perez MD Work Phone: [facility] 02-05-2025 09:19-0400 Respiratory rate 16 /min Rasheed Perez MD Work Phone: [facility] 02-05-2025 09:19-0400 SaO2% (BldA) [Mass fraction] 97 % Rasheed Perez MD Work Phone: [facility] 02-05-2025 09:19-0400 Systolic blood pressure 91 mm[Hg] Rasheed Perez MD Work Phone: [facility] 02-02-2025 11:45-0400 Body temperature 96.91 [degF] Nurse Mae Work Phone: [facility] 02-02-2025 11:45-0400 Diastolic blood pressure 51 mm[Hg] Nurse Mae Work Phone: [facility] 02-02-2025 11:45-0400 Heart rate 71 /min Nurse Mae Work Phone: [facility] 02-02-2025 11:45-0400 Respiratory rate 18 /min Nurse Mae Work Phone: [facility] 02-02-2025 11:45-0400 SaO2% (BldA) [Mass fraction] 96 % Nurse Mae Work Phone: [facility] 02-02-2025 11:45-0400 Systolic blood pressure 97 mm[Hg] Nurse Mae Work Phone: [facility] 01-31-2025 12:10-0400 Body mass index (BMI) [Ratio] 25.3 kg/m2 Ezra Lizama MD Work Phone: [facility] 01-31-2025 12:10-0400 Body temperature 96.91 [degF] Ezra Lizama MD Work Phone: [facility] 01-31-2025 12:10-0400 Body weight 74.4 kg Ezra Lizama MD Work Phone: [facility] 01-31-2025 12:10-0400 Respiratory rate 16 /min Ezra Lizama MD Work Phone: [facility] 01-26-2025 11:30-0400 Body temperature 97.5 [degF] Rasheed Perez MD Work Phone: [facility] 01-26-2025 11:30-0400 Diastolic blood pressure 49 mm[Hg] Rasheed Perez MD Work Phone: [facility] Comment on above: repeat 112/44 manually and resting, BP 9 4/50 standing 01-26-2025 11:30-0400 Heart rate 98 /min Rasheed Perez MD Work Phone: [facility] 01-26-2025 11:30-0400 Respiratory rate 20 /min Rasheed Perez MD Work Phone: [facility] 01-26-2025 11:30-0400 SaO2% (BldA) [Mass fraction] 99 % Rasheed Perez MD Work Phone: [facility] 01-26-2025 11:30-0400 Systolic blood pressure 115 mm[Hg] Rasheed Perez MD Work Phone: [facility] Comment on above: repeat 112/44 manually and resting, BP 9 4/50 standing 01-24-2025 12:09-0400 Body mass index (BMI) [Ratio] 25.26 kg/m2 Ezra Lizama MD Work Phone: [facility] 01-24-2025 12:09-0400 Body temperature 98.2 [degF] Ezra Lizama MD Work Phone: [facility] 01-24-2025 12:09-0400 Body weight 74.3 kg Ezra Lizama MD Work Phone: [facility] 01-24-2025 12:09-0400 Diastolic blood pressure 71 mm[Hg] Ezra Lizama MD Work Phone: [facility] 01-24-2025 12:09-0400 Heart rate 80 /min Ezra Lizama MD Work Phone: [facility] 01-24-2025 12:09-0400 Respiratory rate 18 /min Ezra Lizama MD Work Phone: [facility] 01-24-2025 12:09-0400 SaO2% (BldA) [Mass fraction] 97 % Ezra Lizama MD Work Phone: [facility] 01-24-2025 12:09-0400 Systolic blood pressure 102 mm[Hg] Ezra Lizama MD Work Phone: [facility] 01-23-2025 08:17-0400 Body mass index (BMI) [Ratio] 25.64 kg/m2 Sheila Bundridge FORENSIC MEDICAL EXAMINER.DEPARTMENT OPERATIONS MANAGER Work Phone: [facility] 01-23-2025 08:17-0400 Body temperature 97.59 [degF] Sheila Bundridge FORENSIC MEDICAL EXAMINER.DEPARTMENT OPERATIONS MANAGER Work Phone: [facility] 01-23-2025 08:17-0400 Body weight 75.4 kg Sheila Bundridge FORENSIC MEDICAL EXAMINER.DEPARTMENT OPERATIONS MANAGER Work Phone: [facility] 01-23-2025 08:17-0400 Diastolic blood pressure 62 mm[Hg] Sheila Bundridge FORENSIC MEDICAL EXAMINER.DEPARTMENT OPERATIONS MANAGER Work Phone: [facility] 01-23-2025 08:17-0400 Heart rate 110 /min Sheila Bundridge FORENSIC MEDICAL EXAMINER.DEPARTMENT OPERATIONS MANAGER Work Phone: [facility] 01-23-2025 08:17-0400 Respiratory rate 18 /min Sheila Bundridge FORENSIC MEDICAL EXAMINER.DEPARTMENT OPERATIONS MANAGER Work Phone: [facility] 01-23-2025 08:17-0400 SaO2% (BldA) [Mass fraction] 98 % Sheila Bundridge FORENSIC MEDICAL EXAMINER.DEPARTMENT OPERATIONS MANAGER Work Phone: [facility] 01-23-2025 08:17-0400 Systolic blood pressure 92 mm[Hg] Sheila Chanelsilas FORENSIC MEDICAL EXAMINER.DEPARTMENT OPERATIONS MANAGER Work Phone: [facility] 01-18-2025 13:38-0400 Diastolic blood pressure 61 mm[Hg] Ezra Lizama MD Work Phone: [facility] 01-18-2025 13:38-0400 Heart rate 94 /min Ezra Lizama MD Work Phone: [facility] 01-18-2025 13:38-0400 Respiratory rate 18 /min Ezra Lizama MD Work Phone: [facility] 01-18-2025 13:38-0400 SaO2% (BldA) [Mass fraction] 94 % Ezra Lizama MD Work Phone: [facility] 01-18-2025 13:38-0400 Systolic blood pressure 90 mm[Hg] Ezra Lizama MD Work Phone: [facility] 01-18-2025 11:44-0400 Body temperature 99.2 [degF] Dominic Ryder PA-C Work Phone: [facility] 01-18-2025 11:44-0400 Diastolic blood pressure 60 mm[Hg] Dominic Ryder PA-C Work Phone: [facility] 01-18-2025 11:44-0400 Heart rate 84 /min Dominic Ryder PA-C Work Phone: [facility] 01-18-2025 11:44-0400 Respiratory rate 16 /min Dominic Ryder PA-C Work Phone: [facility] 01-18-2025 11:44-0400 SaO2% (BldA) [Mass fraction] 99 % Dominic Ryder PA-C Work Phone: [facility] 01-18-2025 11:44-0400 Systolic blood pressure 116 mm[Hg] Dominic Ryder PA-C Work Phone: [facility] 01-18-2025 05:14-0400 Body weight 74.1 kg Dominic Ryder PA-C Work Phone: [facility] 01-16-2025 15:14-0400 Body height 172.72 cm Dominic Ryder PA-C Work Phone: [facility] 01-15-2025 13:00-0400 Diastolic blood pressure 64 mm[Hg] Dominic Ryder PA-C Work Phone: [facility] 01-15-2025 13:00-0400 Heart rate 78 /min Dominic Ryder PA-C Work Phone: [facility] 01-15-2025 13:00-0400 Respiratory rate 20 /min Dominic Ryder PA-C Work Phone: [facility] 01-15-2025 13:00-0400 SaO2% (BldA) [Mass fraction] 92 % Dominic Ryder PA-C Work Phone: [facility] 01-15-2025 13:00-0400 Systolic blood pressure 98 mm[Hg] Dominic Ryder PA-C Work Phone: [facility] 01-15-2025 09:33-0400 Body temperature 98.1 [degF] Dominic Ryder PA-C Work Phone: [facility] 01-15-2025 09:32-0400 Body height 172.72 cm Dominic Ryder PA-C Work Phone: [facility] 01-15-2025 09:32-0400 Body weight 82.5 kg Dominic Ryder PA-C Work Phone: [facility] 01-15-2025 08:19-0400 Body height 171.5 cm Rasheed Perez MD Work Phone: [facility] 01-15-2025 08:19-0400 Body temperature 97.11 [degF] Rasheed Perez MD Work Phone: [facility] 01-15-2025 08:19-0400 Diastolic blood pressure 60 mm[Hg] Rasheed Perez MD Work Phone: [facility] 01-15-2025 08:19-0400 Heart rate 129 /min Rasheed Perez MD Work Phone: [facility] 01-15-2025 08:19-0400 Respiratory rate 16 /min Rasheed Perez MD Work Phone: [facility] 01-15-2025 08:19-0400 SaO2% (BldA) [Mass fraction] 98 % Rasheed Perez MD Work Phone: [facility] 01-15-2025 08:19-0400 Systolic blood pressure 88 mm[Hg] Rasheed Perez MD Work Phone: [facility] 01-12-2025 12:20-0400 Body temperature 97.5 [degF] Chair [place] Work Phone: [facility] 01-12-2025 12:20-0400 Diastolic blood pressure 53 mm[Hg] Chair [place] Work Phone: [facility] 01-12-2025 12:20-0400 Heart rate 85 /min Chair [place] Work Phone: [facility] 01-12-2025 12:20-0400 Respiratory rate 16 /min Chair [place] Work Phone: [facility] 01-12-2025 12:20-0400 SaO2% (BldA) [Mass fraction] 96 % Chair Mae Work Phone: [facility] 01-12-2025 12:20-0400 Systolic blood pressure 94 mm[Hg] Chair Mae Work Phone: [facility] 01-11-2025 12:30-0400 Body temperature 98.2 [degF] Chair [place] Work Phone: [facility] 01-11-2025 12:30-0400 Diastolic blood pressure 63 mm[Hg] Chair [place] Work Phone: [facility] 01-11-2025 12:30-0400 Heart rate 85 /min Chair Mae Work Phone: [facility] 01-11-2025 12:30-0400 Respiratory rate 16 /min Chair [place] Work Phone: [facility] 01-11-2025 12:30-0400 SaO2% (BldA) [Mass fraction] 97 % Chair [place] Work Phone: [facility] 01-11-2025 12:30-0400 Systolic blood pressure 108 mm[Hg] Chair [place] Work Phone: [facility] 01-10-2025 12:45-0400 Body temperature 98.1 [degF] Chair [place] Work Phone: [facility] 01-10-2025 12:45-0400 Diastolic blood pressure 62 mm[Hg] Chair Mae Work Phone: [facility] 01-10-2025 12:45-0400 Heart rate 87 /min Chair [place] Work Phone: [facility] 01-10-2025 12:45-0400 Respiratory rate 18 /min Chair Mae Work Phone: [facility] 01-10-2025 12:45-0400 SaO2% (BldA) [Mass fraction] 98 % Chair [place] Work Phone: [facility] 01-10-2025 12:45-0400 Systolic blood pressure 103 mm[Hg] Chair Mae Work Phone: [facility] 01-10-2025 12:14-0400 Body mass index (BMI) [Ratio] 29.27 kg/m2 zEra Lizama MD Work Phone: [facility] 01-10-2025 12:14-0400 Body weight 86.1 kg Ezra Lizama MD Work Phone: [facility] 01-10-2025 12:12-0400 Diastolic blood pressure 67 mm[Hg] Nurse [place] Work Phone: [facility] [facility] 01-[facility]-2025 12:12-0400 Heart rate 79 /min Nurse Mae Work Phone: [facility] 01-10-2025 12:12-0400 SaO2% (BldA) [Mass fraction] 95 % Nurse Mae Work Phone: [facility] 01-10-2025 12:12-0400 Systolic blood pressure 106 mm[Hg] Nurse La V[place]ne Work Phone: [facility] 01-09-2025 11:52-0400 Body temperature 97.3 [degF] Chair [place] Work Phone: [facility] 01-09-2025 11:52-0400 Diastolic blood pressure 57 mm[Hg] Chair Mae Work Phone: [facility] 01-09-2025 11:52-0400 Heart rate 87 /min Chair [place] Work Phone: [facility] 01-09-2025 11:52-0400 Respiratory rate 16 /min Chair [place] Work Phone: [facility] 01-09-2025 11:52-0400 SaO2% (BldA) [Mass fraction] 96 % Chair [place] Work Phone: [facility] 01-09-2025 11:52-0400 Systolic blood pressure 90 mm[Hg] Chair Mae Work Phone: [facility] 01-08-2025 14:50-0400 Diastolic blood pressure 71 mm[Hg] Chair Mae Work Phone: [facility] 01-08-2025 14:50-0400 Heart rate 83 /min Chair Mae Work Phone: [facility] 01-08-2025 14:50-0400 Respiratory rate 18 /min Chair Mae Work Phone: [facility] 01-08-2025 14:50-0400 SaO2% (BldA) [Mass fraction] 97 % Chair Mae Work Phone: [facility] 01-08-2025 14:50-0400 Systolic blood pressure 109 mm[Hg] Chair Mae Work Phone: [facility] 01-08-2025 11:04-0400 Body height 171.5 cm Chair Mae Work Phone: [facility] Comment on above: verified by 2 RN's with shoes on 01-08-2025 09:47-0400 Diastolic blood pressure 56 mm[Hg] Rasheed Perez MD Work Phone: [facility] Comment on above: recheck 01-08-2025 09:47-0400 Systolic blood pressure 94 mm[Hg] Rasheed Perez MD Work Phone: [facility] Comment on above: recheck 01-08-2025 09:41-0400 Body height 169.5 cm Rasheed Perez MD Work Phone: [facility] 01-08-2025 09:41-0400 Body mass index (BMI) [Ratio] 28.33 kg/m2 Rasheed Perez MD Work Phone: [facility] 01-08-2025 09:41-0400 Body temperature 97.39 [degF] Rasheed Perez MD Work Phone: [facility] 01-08-2025 09:41-0400 Body weight 81.4 kg Rasheed Perez MD Work Phone: [facility] 01-08-2025 09:41-0400 Heart rate 104 /min Rasheed Perez MD Work Phone: [facility] 01-08-2025 09:41-0400 Respiratory rate 16 /min Rasheed Perez MD Work Phone: [facility] 01-08-2025 09:41-0400 SaO2% (BldA) [Mass fraction] 95 % Rasheed Perez MD Work Phone: [facility] 01-06-2025 12:00-0400 Body temperature 98.2 [degF] Dominic Ryder PA-C Work Phone: [facility] 01-06-2025 12:00-0400 Diastolic blood pressure 64 mm[Hg] Dominic Ryder PA-C Work Phone: [facility] 01-06-2025 12:00-0400 Heart rate 88 /min Dominic Ryder PA-C Work Phone: [facility] 01-06-2025 12:00-0400 Respiratory rate 16 /min Dominic Ryder PA-C Work Phone: [facility] 01-06-2025 12:00-0400 SaO2% (BldA) [Mass fraction] 97 % Dominic Ryder PA-C Work Phone: [facility] 01-06-2025 12:00-0400 Systolic blood pressure 118 mm[Hg] Dominic Ryder PA-C Work Phone: [facility] 01-06-2025 06:00-0400 Body weight 82.9 kg Dominic Ryder PA-C Work Phone: [facility] 01-03-2025 15:12-0400 Body height 170.18 cm Dominic Ryder PA-C Work Phone: [facility] 01-02-2025 20:46-0400 Body height 170.18 cm Dominic Ryder PA-C Work Phone: [facility] 01-02-2025 20:46-0400 Body temperature 98.7 [degF] Dominic Ryder PA-C Work Phone: [facility] 01-02-2025 20:46-0400 Body weight 82.4 kg Dominic Ryder PA-C Work Phone: [facility] 01-02-2025 20:46-0400 Diastolic blood pressure 56 mm[Hg] Dominic Ryder PA-C Work Phone: [facility] 01-02-2025 20:46-0400 Heart rate 82 /min Dominic Ryder PA-C Work Phone: [facility] 01-02-2025 20:46-0400 Respiratory rate 18 /min Dominic Ryder PA-C Work Phone: [facility] 01-02-2025 20:46-0400 SaO2% (BldA) [Mass fraction] 98 % Dominic Ryder PA-C Work Phone: [facility] 01-02-2025 20:46-0400 Systolic blood pressure 102 mm[Hg] Dominic Ryder PA-C Work Phone: [facility] 01-02-2025 10:53-0400 Body height 169.5 cm Rasheed Perez MD Work Phone: [facility] 01-02-2025 10:53-0400 Body mass index (BMI) [Ratio] 27.81 kg/m2 Rasheed Perez MD Work Phone: [facility] 01-02-2025 10:53-0400 Body temperature 97.9 [degF] Rasheed Perez MD Work Phone: [facility] 01-02-2025 10:53-0400 Body weight 79.9 kg Rasheed Perez MD Work Phone: [facility] 01-02-2025 10:53-0400 Diastolic blood pressure 54 mm[Hg] Rasheed Perez MD Work Phone: [facility] 01-02-2025 10:53-0400 Heart rate 69 /min Rasheed Perez MD Work Phone: [facility] 01-02-2025 10:53-0400 Respiratory rate 16 /min Rasheed Perez MD Work Phone: [facility] 01-02-2025 10:53-0400 SaO2% (BldA) [Mass fraction] 100 % Rasheed Perez MD Work Phone: [facility] 01-02-2025 10:53-0400 Systolic blood pressure 96 mm[Hg] Rasheed Perez MD Work Phone: [facility] 12-26-2024 13:53-0400 Diastolic blood pressure 62 mm[Hg] Rasheed Perez MD Work Phone: [facility] Comment on above: recheck 12-26-2024 13:53-0400 Systolic blood pressure 101 mm[Hg] Rasheed Perez MD Work Phone: [facility] Comment on above: recheck 12-26-2024 13:50-0400 Body mass index (BMI) [Ratio] 28.54 kg/m2 Rasheed Perez MD Work Phone: [facility] 12-26-2024 13:50-0400 Body temperature 97.3 [degF] Rasheed Perez MD Work Phone: [facility] 12-26-2024 13:50-0400 Body weight 82 kg Rasheed Perez MD Work Phone: [facility] 12-26-2024 13:50-0400 Heart rate 97 /min Rasheed Perez MD Work Phone: [facility] 12-26-2024 13:50-0400 Respiratory rate 18 /min Rasheed Perez MD Work Phone: [facility] 12-26-2024 13:50-0400 SaO2% (BldA) [Mass fraction] 96 % Rasheed Perez MD Work Phone: [facility] 12-07-2024 14:31-0400 Body height 172.7 cm Shola Milan FORENSIC MEDICAL EXAMINER-DEPARTMENT OPERATIONS MANAGER Work Phone: [employer] 12-07-2024 14:31-0400 Body mass index (BMI) [Ratio] 28.59 kg/m2 Shola Milan FORENSIC MEDICAL EXAMINER-DEPARTMENT OPERATIONS MANAGER Work Phone: [employer] 12-07-2024 14:31-0400 Body weight 85.28 kg Shola Milan FORENSIC MEDICAL EXAMINER-DEPARTMENT OPERATIONS MANAGER Work Phone: [employer] 12-07-2024 14:31-0400 Diastolic blood pressure 62 mm[Hg] Shola Torret FORENSIC MEDICAL EXAMINER-DEPARTMENT OPERATIONS MANAGER Work Phone: [employer] 12-07-2024 14:31-0400 Heart rate 90 /min Shola Torret FORENSIC MEDICAL EXAMINER-DEPARTMENT OPERATIONS MANAGER Work Phone: [employer] 12-07-2024 14:31-0400 SaO2% (BldA) [Mass fraction] 97 % Shola Milan FORENSIC MEDICAL EXAMINER-DEPARTMENT OPERATIONS MANAGER Work Phone: [employer] 12-07-2024 14:31-0400 Systolic blood pressure 110 mm[Hg] Shola Milan FORENSIC MEDICAL EXAMINER-DEPARTMENT OPERATIONS MANAGER Work Phone: [employer] 11-22-2024 12:31-0400 Body height 172.7 cm Shola Milan FORENSIC MEDICAL EXAMINER-DEPARTMENT OPERATIONS MANAGER Work Phone: [employer] 11-22-2024 12:31-0400 Diastolic blood pressure 50 mm[Hg] Shola Milan FORENSIC MEDICAL EXAMINER-DEPARTMENT OPERATIONS MANAGER Work Phone: [employer] 11-22-2024 12:31-0400 Heart rate 92 /min Shola Torret FORENSIC MEDICAL EXAMINER-DEPARTMENT OPERATIONS MANAGER Work Phone: [employer] 11-22-2024 12:31-0400 SaO2% (BldA) [Mass fraction] 98 % Shola Bjorn FORENSIC MEDICAL EXAMINER-DEPARTMENT OPERATIONS MANAGER Work Phone: [employer] 11-22-2024 12:31-0400 Systolic blood pressure 108 mm[Hg] Shola Milan FORENSIC MEDICAL EXAMINER-DEPARTMENT OPERATIONS MANAGER Work Phone: [facility] 11-17-2024 14:23-0400 Body height 169.5 cm Rasheed Perez MD Work Phone: [facility] 11-17-2024 14:23-0400 Body mass index (BMI) [Ratio] 30.25 kg/m2 Rasheed Perez MD Work Phone: [facility] 11-17-2024 14:23-0400 Body temperature 98.01 [degF] Rasheed Perez MD Work Phone: [facility] 11-17-2024 14:23-0400 Body weight 86.9 kg Rasheed Perez MD Work Phone: [facility] 11-17-2024 14:23-0400 Diastolic blood pressure 67 mm[Hg] Rasheed Perez MD Work Phone: [facility] 11-17-2024 14:23-0400 Heart rate 105 /min Rasheed Perez MD Work Phone: [facility] 11-17-2024 14:23-0400 Respiratory rate 16 /min Rasheed Perez MD Work Phone: [facility] 11-17-2024 14:23-0400 SaO2% (BldA) [Mass fraction] 99 % Rasheed Perez MD Work Phone: [facility] 11-17-2024 14:23-0400 Systolic blood pressure 100 mm[Hg] Rasheed Perez MD Work Phone: [facility] 11-17-2024 12:59-0400 Body mass index (BMI) [Ratio] 30.25 kg/m2 Ezra Lizama MD Work Phone: [facility] 11-17-2024 12:59-0400 Body weight 86.9 kg Ezra Lizama MD Work Phone: [facility] 11-15-2024 10:37-0400 Body mass index (BMI) [Ratio] 30.53 kg/m2 Alexandre Robertson MD Work Phone: [facility] 11-15-2024 10:37-0400 Body temperature 97.2 [degF] Alexandre Robertson MD Work Phone: [facility] 11-15-2024 10:37-0400 Body weight 87.7 kg Alexandre Robertson MD Work Phone: [facility] 11-15-2024 10:37-0400 Diastolic blood pressure 66 mm[Hg] Alexandre Robertson MD Work Phone: [facility] 11-15-2024 10:37-0400 Heart rate 85 /min Alexandre Robertson MD Work Phone: [facility] 11-15-2024 10:37-0400 Respiratory rate 20 /min Alexandre Robertson MD Work Phone: [facility] 11-15-2024 10:37-0400 SaO2% (BldA) [Mass fraction] 98 % Alexandre Robertson MD Work Phone: [facility] 11-15-2024 10:37-0400 Systolic blood pressure 111 mm[Hg] Alexandre Robertson MD Work Phone: [facility] 11-08-2024 14:40-0400 Body height 172.7 cm Maritza Best MD Work Phone: [facility] 11-08-2024 14:40-0400 Body mass index (BMI) [Ratio] 31.78 kg/m2 Maritza Best MD Work Phone: [facility] 11-08-2024 14:40-0400 Body weight 94.8 kg Maritza Best MD Work Phone: [facility] 11-08-2024 14:40-0400 Diastolic blood pressure 72 mm[Hg] Maritza Best MD Work Phone: [facility] 11-08-2024 14:40-0400 Heart rate 105 /min Maritza Best MD Work Phone: [facility] 11-08-2024 14:40-0400 SaO2% (BldA) [Mass fraction] 95 % Maritza Best MD Work Phone: [facility] 11-08-2024 14:40-0400 Systolic blood pressure 104 mm[Hg] Maritza Best MD Work Phone: [facility] 10-27-2024 08:49-0400 Body height 169.5 cm Rasheed Perez MD Work Phone: [facility] Comment on above: verified no shoes 10-27-2024 08:49-0400 Body mass index (BMI) [Ratio] 30.18 kg/m2 Rasheed Perez MD Work Phone: [facility] 10-27-2024 08:49-0400 Body temperature 97.7 [degF] Rasheed Perez MD Work Phone: [facility] 10-27-2024 08:49-0400 Body weight 86.7 kg Rasheed Perez MD Work Phone: [facility] 10-27-2024 08:49-0400 Diastolic blood pressure 64 mm[Hg] Rasheed Perez MD Work Phone: [facility] 10-27-2024 08:49-0400 Heart rate 95 /min Rasheed Perez MD Work Phone: [facility] 10-27-2024 08:49-0400 Respiratory rate 16 /min Rasheed Perez MD Work Phone: [facility] 10-27-2024 08:49-0400 SaO2% (BldA) [Mass fraction] 96 % Rasheed Perez MD Work Phone: [address]16-2025 08:49-0400 Systolic blood pressure 100 mm[Hg] Rasheed Perez MD Work Phone: [facility] 09-08-2024 11:32-0400 Body height 172.72 cm Alina Ragland MD Work Phone: [facility] 09-08-2024 11:32-0400 Body mass index (BMI) [Ratio] 31.5 kg/m2 Alina Ragland MD Work Phone: [facility] 09-08-2024 11:32-0400 Body temperature 97.3 [degF] Alina Ragland MD Work Phone: [facility] 09-08-2024 11:32-0400 Body weight 94 kg Alina Ragland MD Work Phone: [facility] 09-08-2024 11:32-0400 Diastolic blood pressure 64 mm[Hg] Alina Ragland MD Work Phone: [facility] 09-08-2024 11:32-0400 Heart rate 115 /min Alina Ragland MD Work Phone: [facility] 09-08-2024 11:32-0400 Respiratory rate 18 /min Alina Ragland MD Work Phone: [facility] 09-08-2024 11:32-0400 SaO2% (BldA) [Mass fraction] 96 % Alina Ragland MD Work Phone: [facility] 09-08-2024 11:32-0400 Systolic blood pressure 91 mm[Hg] Alina Ragland MD Work Phone: [facility] 08-31-2024 09:46-0400 Body height 172.72 cm Alina Ragland MD Work Phone: [facility] 08-31-2024 09:46-0400 Body mass index (BMI) [Ratio] 32.6 kg/m2 Alina Ragland MD Work Phone: [facility] 08-31-2024 09:46-0400 Body temperature 98.8 [degF] Alina Ragland MD Work Phone: [facility] 08-31-2024 09:46-0400 Body weight 97.52 kg Alina Ragland MD Work Phone: [facility] 08-31-2024 09:46-0400 Diastolic blood pressure 64 mm[Hg] Alina Ragland MD Work Phone: [facility] 08-31-2024 09:46-0400 Heart rate 62 /min Alina Ragland MD Work Phone: [facility] 08-31-2024 09:46-0400 Respiratory rate 18 /min Alina Ragland MD Work Phone: [facility] 08-31-2024 09:46-0400 SaO2% (BldA) [Mass fraction] 98 % Alina Ragland MD Work Phone: [facility] 08-31-2024 09:46-0400 Systolic blood pressure 148 mm[Hg] Alina Ragland MD Work Phone: [facility] 06-29-2023 08:51-0500 Diastolic blood pressure 84 mm[Hg] VICTORIA FLORES [facility] 06-29-2023 08:51-0500 Mean blood pressure 107 mm[Hg] VICTORIA SANDRA [facility] 06-29-2023 08:51-0500 Systolic blood pressure 153 mm[Hg] VICTORIA SANDRA [facility] 06-29-2023 08:41-0500 Blood Pressure Location VICTORIA FLORES [facility] 06-29-2023 08:41-0500 Diastolic blood pressure 87 mm[Hg] VICTORIA FLORES [facility] 06-29-2023 08:41-0500 Heart rate 99 /min VICTORIA FLORES [facility] 06-29-2023 08:41-0500 Systolic blood pressure 153 mm[Hg] VICTORIA FLORES [facility] Encounters Encounter Date Encounter Type Care Provider Facility Start: 03-28-2025 End: 03-28-2025 ambulatory CARLOS COLLINS Facility:[facility] Start: 03-28-2025 End: 03-29-2025 Telephone encounter Gayathri Saeed MANAGER STORY [facility] Comment on above: Cx PT 03/29/25; Conf irmation Start: 03-26-2025 End: 03-26-2025 Telephone encounter Akbar Blocksarath MANAGER STORY [facility] Comment on above: PT CX 03/26 Start: 03-23-2025 ambulatory CARLOS COLLINS Facili ty:[facility] Start: 03-22-2025 End: 03-22-2025 Bamboo flowsheet Terra Rashid PT [facility] Start: 03-22-2025 End: 03-22-2025 Bamboo flowsheet Terra Rashid PT [facility] Start: 03-22-2025 End: 03-22-2025 ambulatory Terra Rashid PT [facility] Comment on above: Weakness (Primary Dx ); Adverse effect of antineoplastic and immunosuppressive drugs, initial encounter; Other fatigue Start: 03-20-2025 End: 03-21-2025 ambulatory CARLOS COLLINS Facility:[facility] Start: 03-20-2025 End: 03-20-2025 ambulatory CARLOS COLLINS Facility:[facility] Start: 03-19-2025 End: 03-19-2025 Bamboo flowsheet Akbar Monreal MANAGER STORY [facility] Start: 03-19-2025 End: 03-19-2025 Bamboo flowsheet Akbar Monreal MANAGER STORY [facility] Start: 03-19-2025 End: 03-19-2025 ambulatory Akbar Monreal MANAGER STORY [facility] Comment on above: Weakness (Primary Dx ); Adverse effect of antineoplastic and immunosuppressive drugs, initial encounter; Other fatigue Start: 03-16-2025 End: 03-16-2025 Bamboo flowsheet Gayathri Saeed MANAGER STORY [facility] Start: 03-16-2025 End: 03-16-2025 Bamboo flowsheet Gayathri Saeed MANAGER STORY [facility] Start: 03-16-2025 End: 03-16-2025 ambulatory Gayathri Saeed MANAGER STORY [facility] Comment on above: Weakness (Primary Dx ); Adverse effect of antineoplastic and immunosuppressive drugs, initial encounter; Other fatigue Start: 03-14-2025 End: 03-14-2025 Clinical Support [facility] Comment on above: Pacemaker- [place] (P rimary Dx) Start: 03-13-2025 End: 03-13-2025 Bamboo flowsheet Gayathri Saeed MANAGER STORY [facility] Start: 03-13-2025 End: 03-13-2025 Bamboo flowsheet Gayathri Saeed MANAGER STORY [facility] Start: 03-13-2025 End: 03-13-2025 ambulatory Gayathri Saeed MANAGER STORY [facility] Comment on above: Weakness (Primary Dx ); Adverse effect of antineoplastic and immunosuppressive drugs, initial encounter; Other fatigue Start: 03-09-2025 End: 03-09-2025 Bamboo flowsheet Terra Rashid PT [facility] Start: 03-09-2025 End: 03-09-2025 Bamboo flowsheet Terra Rashid PT [facility] Start: 03-09-2025 End: 03-09-2025 ambulatory Terra Rashid PT [facility] Comment on above: Weakness (Primary Dx ); Adverse effect of antineoplastic and immunosuppressive drugs, initial encounter; Other fatigue Start: 03-07-2025 End: 03-08-2025 ambulatory Terra Rashid PT [facility] Comment on above: Weakness (Primary Dx ); Adverse effect of antineoplastic and immunosuppressive drugs, initial encounter; Other fatigue Start: 03-07-2025 End: 03-07-2025 Bamboo flowsheet Terra Rashid PT [facility] Start: 03-07-2025 End: 03-07-2025 Bamboo flowsheet Terra Rashid PT [facility] Start: 03-01-2025 End: 03-02-2025 ambulatory CARLOS PERRY DENNIS Facility:[facility] Start: 02-27-2025 End: 03-01-2025 Telephone encounter Ezra Lizama MD Work Phone: [facility] Comment on above: Patient Update radiation completed Start: 02-23-2025 End: 02-23-[address] Work Phone: [facility] Therapy Start: 02-23-2025 End: 02-23-[address] B[address] Work Phone: Nutrition Therapy Comment on above: Nutrition Counseling Start: 02-23-2025 End: 02-23-2025 ambulatory CARLOS PERRY DENNIS Facility:[facility] Start: 02-22-2025 End: 02-22-2025 [facility] Facility:[facility] Start: 02-22-2025 End: 02-22-2025 Nursing evaluation of patient and report Nurse Cindy Garcia Work Phone: Radiation Oncology Comment on above: Malignant neoplasm o f lower lobe of right lung (HCC) (Primary Dx) Start: 02-22-2025 End: 02-22-2025 ambulatory Lab[facility] Garcia Work Phone: Hematology/Oncology Comment on above: Malignant neoplasm o f lower lobe of right lung (HCC) (Primary Dx) Start: 02-21-2025 End: 02-21-2025 ambulatory Chair Escobar Garcia Work Phone: Hematology/Oncology Comment on above: Malignant neoplasm o f lower lobe of right lung (HCC) (Primary Dx) Start: 02-21-2025 End: 02-21-2025 Office outpatient visit 25 minutes Rasheed Perez MD Work Phone: Hematology/Oncology Comment on above: Malignant neoplasm o f lower lobe of right lung (HCC) (Primary Dx) Start: 02-21-2025 End: 02-21-2025 Nursing evaluation of patient and report Nurse Cindy Garcia Work Phone: Radiation Oncology Comment on above: Malignant neoplasm o f lower lobe of right lung (HCC) (Primary Dx) Start: 02-21-2025 End: 02-21-2025 ambulatory CARLOS COLLINS Facility:[facility] Start: 02-20-2025 End: 02-20-2025 Telephone encounter Ezra Lizama MD Work Phone: [facility]iation Oncology Comment on above: Difficulty Swallowin g Start: 02-20-2025 End: 02-20-2025 Nursing evaluation of patient and report Nurse Cindy Garcia Work Phone: Radiation Oncology Comment on above: Malignant neoplasm o f lower lobe of right lung (HCC) (Primary Dx) Start: 02-20-2025 End: 02-20-2025 ambulatory Chair Fermín Garcia Work Phone: Hematology/Oncology Comment on above: Malignant neoplasm o f lower lobe of right lung (HCC) (Primary Dx) Start: 02-20-2025 End: 02-20-2025 Patient encounter procedure Sheila Freeman APRN.DEPARTMENT OPERATIONS MANAGER Work Phone: Palliative Medicine Comment on above: Palliative care by s pecialist (Primary Dx); Malignant neoplasm of lower lobe of right lung (HCC); Neoplasm related pain; SOB (shortness of breath); Esophagitis; Rhinorrhea; Chronic cough; Anorexia; Constipation due to opioid therapy; Dysphagia, unspecified type Start: 02-19-2025 End: 02-20-2025 Telephone encounter Rasheed Perez MD Work Phone: Hematology/Oncology Comment on above: Lab Orders Refill Request Patient Update Start: 02-19-2025 End: 02-19-2025 Nursing evaluation of patient and report Nurse Cindy Garcia Work Phone: Radiation Oncology Comment on above: Malignant neoplasm o f lower lobe of right lung (HCC) (Primary Dx) Start: 02-19-2025 End: 02-19-2025 [facility] Facility:[facility] Start: 02-19-2025 [facility] Start: 02-16-2025 End: 02-16-2025 Nursing evaluation of patient and report Nurse Cindy Garcia Work Phone: Radiation Oncology Comment on above: Malignant neoplasm o f lower lobe of right lung (HCC) (Primary Dx) Start: 02-16-2025 End: 02-16-2025 [facility] Facility:[facility] Start: 02-15-2025 End: 02-15-2025 Patient encounter procedure [facility] Provider [facility] Department Start: 02-15-2025 End: 02-15-2025 Telephone encounter Rasheed Perez MD Work Phone: Hematology/Oncology Comment on above: FMLA Paperwork Start: 02-15-2025 End: 02-15-2025 Nursing evaluation of patient and report Nurse Cindy Garcia Work Phone: Radiation Oncology Comment on above: Malignant neoplasm o f lower lobe of right lung (HCC) (Primary Dx) Start: 02-15-2025 End: 02-15-2025 ambulatory [facility] Facility:[facility] Start: 02-14-2025 End: 02-26-2025 Telephone encounter [facility]etano Nathan MD [facility]: Future Appointment Financial Assistance Start: 02-14-2025 End: 02-14-2025 ambulatory [facility] Facility:[facility] Start: 02-14-2025 End: 02-14-2025 Office outpatient visit 25 minutes Tristin Wong APRN.CNP Work Phone: Hematology/Oncology Comment on above: [...] Med Change Request Start: 02-14-2025 End: 02-14-2025 Patient encounter procedure Ezra Lizama MD Work Phone: Radiation Oncology Comment on above: Malignant neoplasm o f lower lobe of right lung (HCC) (Primary Dx) Start: 02-14-2025 End: 02-14-2025 ambulatory CARLOS COLLINS Facility:[facility] Start: 02-13-2025 End: 02-13-2025 Telephone encounter Blanquita Hargrove RN Work Phone: Hematology/Oncology Comment on above: Care Coordination (T reatment plan) Start: 02-13-2025 End: 02-14-2025 ambulatory Chair Fermín Garcia Work Phone: Hematology/Oncology Comment on above: Dehydration (Primary Dx) Start: 02-13-2025 End: 02-13-2025 Nursing evaluation of patient and report Nurse Cindy Garcia Work Phone: Radiation Oncology Comment on above: Malignant neoplasm o f lower lobe of right lung (HCC) (Primary Dx); Dehydration Start: 02-09-2025 End: 02-09-2025 Office outpatient visit 25 minutes Shola Milan APRN-ABBEY Work Phone: [facility] Comment on above: AV block (Primary Dx ); Pacemaker; Squamous cell carcinoma of lung, unspecified laterality (CMS-HCC) Start: 02-09-2025 End: 02-09-2025 Clinical Support Ppc Pacer [facility] Comment on above: Pacemaker- [place] (P rimary Dx) Start: 02-09-2025 End: 02-09-2025 [...] Start: 02-08-2025 End: 02-09-2025 ambulatory Chair 15 Mae Work Phone: Hematology/Oncology Comment on above: Malignant neoplasm o f lower lobe of right lung (HCC) (Primary Dx) Start: 02-07-2025 End: 02-07-2025 Patient encounter procedure Ezra Lizama MD Work [...] Dx) Start: 02-05-2025 End: 02-05-2025 ambulatory [facility]LOS PERRY [facility] Facility:[facility] Start: 02-05-2025 End: 02-05-2025 Nursing evaluation of [...] (Primary Dx) Start: 02-02-2025 End: 02-02-2025 ambulatory [facility] Facility:[facility] Start: 02-02-2025 End: 02-02-2025 Nursing evaluation of [...] (HCC) (Primary Dx) Start: 02-01-2025 End: 02-01-2025 ambulatory [facility] Facility:[facility] Start: 01-31-2025 End: 01-31-2025 Patient encounter procedure Ezra Lizama MD Work Phone: Radiation Oncology Comment on above: Malignant neoplasm o f lower lobe of right lung (HCC) (Primary Dx) Start: 01-31-2025 End: 01-31-2025 Nursing evaluation of patient and report Nurse Cindy Garcia Work Phone: Radiation Oncology Comment on above: Malignant neoplasm o f lower lobe of right lung (HCC) (Primary Dx) Start: 01-31-2025 End: 01-31-2025 ambulatory [employer] [employer] Facility:[facility] Start: 01-30-2025 End: 01-30-2025 Telephone encounter Rasheed Perez MD Work Phone: Radiation Oncology Comment on above: Patient Question Start: 01-30-2025 End: 01-30-2025 Nursing evaluation of patient and report Nurse Cindy Garcia Work Phone: Radiation Oncology Comment on above: Malignant neoplasm o f lower lobe of right lung (HCC) (Primary Dx) Start: 01-30-2025 End: 01-30-2025 Patient encounter procedure Madison Gagnon LMT Hematology/Oncology Start: 01-30-2025 End: 01-31-2025 ambulatory Madison Gagnon LMT Hematology/Oncology Comment on above: Muscle soreness (Stella adriana Dx) Start: 01-29-2025 End: 01-29-2025 Nursing evaluation of patient and report Nurse Cindy Garcia Work Phone: Radiation Oncology Comment on above: Malignant neoplasm o f lower lobe of right lung (HCC) (Primary Dx) Start: 01-29-2025 End: 01-29-2025 [facility] Start: 01-26-2025 End: 01-30-2025 Telephone encounter Rasheed Perez MD Work Phone: Radiation Oncology Comment on above: Patient Update; Bandar LEONE Paperwork Start: 01-26-2025 End: 01-26-2025 ambulatory Chair Fermín Salomonusky Work Phone: Hematology/Oncology Comment on above: Fever in adult Start: 01-26-2025 End: 01-26-2025 Nursing evaluation of patient and report Law Salomon Work Phone: Hematology/Oncology Comment on above: UTI symptoms (Primar y Dx); Fever in adult Malignant neoplasm o f lower lobe of right lung (HCC) (Primary Dx) Start: 01-26-2025 End: 01-26-2025 ambulatory [facility] Facility:[facility] Start: 01-26-2025 End: 01-26-2025 Subsequent hospital visit [...] (Primary Dx) Start: 01-25-2025 End: 01-25-2025 ambulatory [facility] Facility:[facility] Start: 01-24-2025 End: 01-25-2025 Telephone encounter Rasheed Perez MD Work Phone: Radiation Oncology Comment on above: Dehydration; Weaknes s Start: 01-24-2025 End: 01-24-2025 Patient encounter procedure Ezra Lizama MD Work Phone: Radiation Oncology Comment on above: Malignant neoplasm o f lower lobe of right lung (HCC) (Primary Dx) Start: 01-24-2025 End: 01-24-2025 Nursing evaluation of [...] E-mail encounter from caregiver Ricardo Alva RN [facility] Palliative Medicine Start: 01-23-2025 End: 01-23-2025 Patient encounter procedure Madison Gagnon T Hematology/Oncology Start: 01-23-2025 End: 01-23-2025 Nursing evaluation of patient and report Nurse Cindy Garcia Work Phone: Radiation Oncology Comment on above: Malignant neoplasm o f lower lobe of right lung (HCC) (Primary Dx) Start: 01-23-2025 End: 01-23-2025 ambulatory Madison Gagnon [facility] Hematology/Oncology Comment on above: Muscle soreness (Stella adriana Dx) palliative care info rmation Start: 01-23-2025 End: 01-23-2025 ambulatory [facility] PERRY [facility] Facility:[facility] Start: 01-23-2025 End: 01-23-2025 Patient encounter procedure Sheila Freeman APRN.CNP Work Phone: Palliative Medicine Comment on above: Palliative care by leigha pecialist (Primary Dx); Malignant neoplasm of lower lobe of right lung (HCC); Neoplasm related pain; Constipation due to opioid therapy; Chronic cough; SOB (shortness of breath); Anorexia; Rhinorrhea Start: 01-23-2025 End: 01-23-2025 [facility] Facility:[facility] Start: 01-22-2025 End: 01-22-2025 [facility] Facility:[facility] Start: 01-22-2025 End: 01-22-2025 Nursing evaluation of patient and report Nurse Cindy Garcia Work Phone: Radiation Oncology Comment on above: Malignant neoplasm o f lower lobe of right lung (HCC) (Primary Dx) Start: 01-22-2025 End: 02-05-2025 ambulatory Carlos Collins Facility::[id number] Start: 01-19-2025 End: 01-22-2025 ambulatory CARLOS COLLINS Facility:[facility] Start: 01-18-2025 End: 01-18-2025 ambulatory CARLOS PERRY DENNIS Facility:[facility] Start: 01-18-2025 End: 01-18-2025 Patient encounter procedure Ezra Lizama MD Work Phone: Radiation Oncology Comment on above: Malignant neoplasm o f lower lobe of right lung (HCC) (Primary Dx) Start: 01-15-2025 End: 01-23-2025 Telephone encounter Ileana Bear RN Work Phone: Hematology/Oncology Comment on above: Care Coordination (H ospital Admission) Start: 01-15-2025 End: 01-18-2025 Evaluation and management of inpatient Hayes Olivarez DO -[facility] [place] [facility] Work Phone: Start: 01-15-2025 Non-patient / [facility] Start: 01-15-2025 End: 01-15-2025 ambulatory CARLOS COLLINS Facility:[facility] Start: 01-15-2025 End: 01-15-2025 Office outpatient visit 25 minutes Rasheed Perez MD Work Phone: Hematology/Oncology Comment on above: Malignant neoplasm o f lower lobe of right lung (HCC) (Primary Dx) Start: 01-15-2025 End: 01-15-2025 ambulatory CARLOS COLLINS Facility:[facility] Start: 01-12-2025 End: 01-12-2025 Nursing evaluation of patient and report Nurse Cindy Garcia Work Phone: Radiation Oncology Comment on above: Malignant neoplasm o f lower lobe of right lung (HCC) (Primary Dx) Start: 01-12-2025 End: 01-12-2025 ambulatory Chair Nii Garcia Work Phone: Hematology/Oncology Comment on above: Malignant [...] Start: 01-11-2025 End: 01-11-2025 ambulatory Chair 13 Looxcie Work Phone: Hematology/Oncology Comment on above: Malignant [...] Start: 01-10-2025 End: 01-10-2025 ambulatory Chair 13 Looxcie Work Phone: Hematology/Oncology Comment on above: Malignant neoplasm o f lower lobe of right lung (HCC) (Primary Dx) Start: 01-09-2025 End: 01-30-2025 Telephone encounter Neha Goodrich RN Hematology/Oncology Comment on above: Regional Service Manager - O ther (Etoposide reaction) Start: 01-09-2025 End: 01-09-2025 Nursing evaluation of patient and report Nurse Cindy Garcia Work Phone: Radiation Oncology Comment on above: Malignant neoplasm o f lower lobe of right lung (HCC) (Primary Dx) Start: 01-09-2025 End: 01-09-2025 ambulatory Chair 13 Mae Work Phone: Hematology/Oncology Comment on above: Malignant neoplasm o f lower lobe of right lung (HCC) (Primary Dx) Start: 01-09-2025 End: 01-09-2025 Patient encounter procedure VICTORIA FLORES [facility] Start: 01-08-2025 End: 01-08-2025 Patient encounter procedure Oswaldo Ghosh MD Work Phone: Radiation Oncology Comment on above: Malignant neoplasm o f lower lobe of right lung (HCC) (Primary Dx) Start: 01-08-2025 End: 01-08-2025 ambulatory CARLOS COLLINS Facility:[facility] Start: 01-08-2025 End: 01-08-2025 Telephone encounter Blanquita [...] Start: 01-05-2025 End: 01-16-2025 ambulatory Carlos Collins Facility:CD:[id number] Start: 01-05-2025 End: 01-08-2025 Telephone encounter Blanquita [...] management of inpatient Norah Whittaker MD -4 [facility] [facility] Work Phone: Start: 01-02-2025 End: 01-02-2025 Office [...] Start: 12-29-2024 End: 12-29-2024 ambulatory CATRACHO YOUSSEF Facility:[facility] Start: 12-26-2024 End: 12-26-2024 Patient encounter procedure Madison Gagnon T Hematology/Oncology Start: 12-26-2024 End: 12-26-2024 Office outpatient visit 15 minutes Rasheed Perez MD Work Phone: Hematology/Oncology Comment on above: Malignant neoplasm o f lower lobe of right lung (HCC) (Primary Dx) Start: 12-26-2024 End: 12-26-2024 Telephone encounter Rasheed Perez MD Work Phone: Hematology/Oncology Comment on above: Care Coordination (P otassium Results) Start: 12-26-2024 End: 12-26-2024 ambulatory Madison Gagnon T Hematology/Oncology Comment on above: Muscle soreness (Stella adriana Dx) Start: 12-26-2024 End: 12-26-2024 ambulatory CARLOS COLLINS Facility:[facility] Start: 12-25-2024 End: 01-08-2025 Telephone encounter Xiomara Wright RN [facility] Comment on above: New AF; PPM upper ra te behavior Start: 12-25-2024 End: 01-03-2025 ambulatory CATRACHO YOUSSEF Facility::[id number] Start: 12-22-2024 End: 12-22-2024 Telephone encounter Ileana [...] End: 12-11-2024 Patient encounter procedure [facility] Provider [facility] Start: 12-08-2024 End: 12-15-2024 Patient encounter procedure [...] (Primary Dx) Start: 12-08-2024 End: 12-08-2024 [facility] Facility:[facility] Start: 12-07-2024 End: 12-07-2024 Postop follow up visit related to original px Shola Milan FORENSIC MEDICAL EXAMINER-DEPARTMENT OPERATIONS MANAGER Work Phone: [facility] Comment on above: Pacemaker (Primary D x); AV block; Squamous cell carcinoma of lung, unspecified laterality ([facility]-HCC) Start: 12-07-2024 End: 12-07-2024 Clinical Support Ppc Pacer [facility] Comment on above: Pacemaker (Primary D x) Start: 12-07-2024 ambulatory [facility] Facili ty:[facility] Start: 12-07-2024 End: 12-07-2024 Subsequent hospital visit by physician Arrival Time Radiology Work Phone: Radiology Pet CT Comment on above: Malignant neoplasm o f lower lobe of right lung (HCC) [C34.31] Start: 12-05-2024 End: 12-08-2024 Telephone encounter Blanquita Hargrove RN Work Phone: Hematology/Oncology Comment on above: Care Coordination (C linical update) Start: 12-05-2024 End: 12-05-2024 ambulatory [facility] Facility:[facility] Start: 11-28-2024 End: 11-29-2024 Telephone encounter [...] up visit related to original px Shola Milan FORENSIC MEDICAL EXAMINER-DEPARTMENT OPERATIONS MANAGER Work Phone: [facility] Comment on above: AV block (Primary Dx ); Squamous cell carcinoma of lung, unspecified laterality (CMS-HCC); Pacemaker Start: 11-22-2024 End: 11-22-2024 Clinical Support Ppc Pacer [facility] Comment on above: Pacemaker- [place] (P rimary Dx) Start: 11-21-2024 End: 11-21-2024 ambulatory [facility] Start: 11-20-2024 End: 11-20-2024 Telephone encounter Carolina Cooney RN Cardiology Start: 11-20-2024 End: 11-20-2024 ambulatory CARLOS COLLINS Facility:[facility] Start: 11-20-2024 End: 11-20-2024 Subsequent hospital visit [...] above: Patient Education Start: 11-15-2024 ambulatory ALINA A [facility] [address] Ambulatory [facility] Start: 11-15-2024 End: 11-15-2024 Chart abstracting Shola Milan FORENSIC MEDICAL EXAMINER-DEPARTMENT OPERATIONS MANAGER Work Phone: [facility] Start: 11-15-2024 End: 11-15-2024 Patient encounter status [id number] Main Work Phone: 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); Bronchial obstruction Start: 11-15-2024 End: 11-15-2024 ambulatory CARLOS BERKLEY [facility] Facility:[facility] Start: 11-09-2024 End: 11-09-2024 ambulatory [facility] Start: 11-09-2024 End: 11-09-2024 Evaluation and management of inpatient [facility] Start: 11-08-2024 End: 11-08-2024 Emergency department patient visit [facility] Start: 11-08-2024 End: 11-08-2024 Office outpatient new 60 minutes Maritza Best MD Work Phone: [facility] Comment on above: Syncope, unspecified syncope type (Primary Dx) Start: 11-08-2024 End: 11-08-2024 ambulatory Carlos L Dennis Facility:[facility] Start: 11-08-2024 End: 11-08-2024 ambulatory Carlos L Dennis Facility:[facility] [place] Start: 11-07-2024 End: 11-08-2024 Telephone encounter Victoria Collado CMA [facility] Comment on above: FMLA Paperwork Start: 11-07-2024 End: 12-12-2024 ambulatory Carlos L Dennis Facility:CD:[id number] Start: 2024 ambulatory Carlos L Dennis Facility: [facility] [place] Start: 10-30-2024 End: 10-30-2024 ambulatory CARLOS BERKLEY DENNIS Facility:[facility] Start: 10-27-2024 End: 11-28-2024 Telephone encounter Janell An Pulmonary Medicine Comment on above: Bronchoscopy Referra l Start: 10-27-2024 End: 10-27-2024 Office outpatient new 60 minutes Rasheed Perez MD Work Phone: Hematology/Oncology Comment on above: Malignant neoplasm o f lower lobe of right lung (HCC) (Primary Dx) Start: 10-27-2024 End: 10-27-2024 ambulatory CARLOS PERRY DENNIS Facility:[facility] Start: 10-25-2024 End: 10-25-2024 Chart abstracting Rasheed Perez MD Work Phone: Hematology/Oncology Start: 10-18-2024 End: 01-16-2025 ambulatory CHIP Gary RAVEN Facility:[facility] Start: 10-16-2024 End: 10-16-2024 ambulatory Alina Ragland MD Work Phone: [facility] Work Phone: Start: 10-16-2024 End: 10-16-2024 Departed Referred Alina Ragland MD Work Phone: [facility] Start: 10-13-2024 End: 10-13-2024 ambulatory Carlos L Dennis Facility:[facility] Start: 10-10-2024 ambulatory Carlos Dennis Facility:[facility] [place] Start: 10-07-2024 End: 10-07-2024 Clinisync Result Encounter [...] Alina Ragland MD Work Phone: [facility] Work Phone: Start: 09-08-2024 End: 09-08-2024 Patient encounter procedure Alina Ragland MD Work Phone: [facility] [place] Work Phone: Start: 08-31-2024 End: 08-31-2024 ambulatory Alina Ragland MD Work Phone: [facility] Work Phone: Start: 08-31-2024 End: 08-31-2024 Patient encounter procedure Alina Ragland MD Work Phone: [facility] [place] Work Phone: Start: 07-13-2024 Non-patient / Non-visit Cinthya Ragland MD Work Phone: [facility] Work Phone: Start: 06-29-2023 End: 06-29-2023 Patient encounter procedure VICTORIA FLORES [facility] Start: 11-11-2022 Encounter for genera l adult medical examination without abnormal findings DR ALINA RAGLAND [facility] Start: 11-10-2022 End: 11-11-[address] ALINA RAGLAND Facility: Start: 11-10-2022 End: 11-11-2022 Encounter for general adult medical examination without abnormal findings DR ALINA RAGLAND Facility:[facility] Start: 06-30-2022 End: 07-01-2022 ambulatory VICTORIA FLORES Facility:[facility] Start: 06-17-2022 End: 06-18-2022 ambulatory VICTORIA FLORES Facility:[facility] Procedures Date Procedure Procedure Detail Performing Clinician Start: 02-09-2025 Ecg routine ecg w/le ast 12 lds w/i&r Shola E Bjorn FORENSIC MEDICAL EXAMINER-DEPARTMENT OPERATIONS MANAGER Work Phone: Start: 01-26-2025 Urnls dip stick/tabl [...] Phone: Start: 01-05-2025 Gram stain microscopy A rthur Ryder PA-C Work Phone: Start: 01-04-2025 Plain chest X-ray Skylaru r Ryder PA-C Work Phone: Start: 01-03-2025 Nasal Screen MRSA/MSSA Dominic Ryder PA-C Work Phone: Start: 01-03-2025 Plain chest X-ray Skylaru r Ryder PA-C Work Phone: Start: 01-02-2025 CT [...] w/le ast 12 lds i&r only Maryuri Lowery MD Work Phone: Start: 11-09-2024 Adult depression scr eening assessment Shola Milan FORENSIC MEDICAL EXAMINER-DEPARTMENT OPERATIONS MANAGER Work Phone: Start: 11-08-2024 Ecg routine ecg [...] above: Performed By: #### P SAD #### [facility] [address] [place] [address] Dr. Jenny Stone Start: 09-30-2020 Lipid 1996 panel - S karishma or Plasma Rasheed Perez MD Work Phone: Start: 12-04-2019 Transurethral prostatectomy VICTORIA FLORES Start: 12-08-2018 Cystoscopy VICTORIA BLACKBURN Start: 05-03-2015 Colonoscopy Terra Rashid PT Colonoscopy VICTORIA FLORES Tonsillectomy VICTORIA FLORES Plan of Treatment Date Care Activity Detail Author Start: 2036 RSV Vaccine (1 - 1-dose 75+ series) RSV Vaccine (1 - 1-dose 75+ series) [facility] Start: 02-22-2028 Diabetes Screening Diabetes Screening [facility] Start: 02-15-2028 Diabetes Screening Diabetes Screening [facility] Start: 02-06-2028 Diabetes Screening Diabetes Screening [facility] Start: 01-25-2028 Diabetes Screening Diabetes Screening [facility] Start: 01-16-2028 Diabetes Screening Diabetes Screening [facility] Start: 01-09-2028 Diabetes Screening Diabetes Screening [facility] Start: 01-03-2028 Diabetes Screening Diabetes Screening [facility] Start: 12-27-2027 Diabetes Screening Diabetes Screening [facility] Start: 11-10-2027 Diabetes Screening Diabetes Screening [facility] Start: 02-09-2026 Adult BMI Screening Adult BMI Screening [facility] Start: 12-07-2025 Adult BMI Screening Adult BMI Screening [facility] Start: 12-07-2025 Tobacco Screening Tobacco Screening [facility] Start: 11-22-2025 Tobacco Screening Tobacco Screening [facility] Start: 11-09-2025 Adult BMI Screening Adult BMI Screening [facility] Start: 11-09-2025 Depression Screening Depression Screening [facility] Start: 11-09-2025 Tobacco Screening Tobacco Screening [facility] Start: 11-08-2025 Adult BMI Screening Adult BMI Screening [facility] Start: 11-08-2025 Tobacco Screening Tobacco Screening [facility] Start: 09-30-2025 Lipid panel Lipid Screening [facility] Start: 05-30-2025 End: 05-30-2025 Clinical Support [facility] Start: 05-28-2025 End: 05-28-2025 Patient encounter procedure 05/28/2025 11:30 AM EST Office Visit Radiation Oncology [address] [place] [address] Ezra Lizama MD [address] [place] [address] 3-4 month final radiation follow up Radiation Oncology Comment on above: 3-4 month final radiation follow up Start: 05-27-2025 Screening for malignant neoplasm of colon [facility] Start: 05-25-2025 End: 05-25-2025 Patient encounter procedure 05/25/2025 11:30 AM EST Office Visit Radiation Oncology [address] [place] [address] Ezra Lizama MD [address] [place] [address] 3-4 month final radiation follow up Radiation Oncology Comment on above: 3-4 month final radiation follow up Start: 05-03-2025 Screening for malignant neoplasm of colon Colonoscopy [facility] Start: 04-13-2025 End: 04-13-2025 ambulatory 04/13/2025 11:00 AM EDT Treatment [facility] [address] [place] [address] Terra Rashid, PT [facility] Start: 04-11-2025 End: 04-11-2025 ambulatory 04/11/2025 2:30 PM EDT Treatment [facility] [address] [place] [address] Gayathri Saeed PTA [facility] Start: 04-10-2025 End: 04-10-2025 ambulatory 04/10/2025 10:00 AM EDT Treatment [facility] [address] [place] [address] Gayathri Saeed PTA [facility] Start: 04-09-2025 End: 04-09-2025 ambulatory 04/09/2025 10:30 AM EDT Treatment [facility] [address] [place] [address] Mallorie Cote PTA [facility] Start: 04-06-2025 End: 04-06-2025 ambulatory 04/06/2025 11:30 AM EDT Treatment [facility] [address] [place] [address] Gayathri Saeed PTA [facility] Start: 04-02-2025 End: 04-02-2025 ambulatory 04/02/2025 1:00 PM EDT Treatment [facility] [place] [facility] [address] [place] [address] Gayathri Saeed PTA [facility] [place] [facility] Start: 03-29-2025 End: 03-29-2025 ambulatory 03/29/2025 12:00 PM EDT Treatment [facility] [place] [facility] [address] [facility] [address] [place] [address] Gayathri Saeed PTA [facility] [place] [facility] Start: 03-28-2025 End: 03-28-2025 Follow-up encounter 03/28/2025 2:40 PM EDT Visit (SP) Office Hematology/Oncology [address] [place] [address] [place] [address] Rasheed Perez MD [address] [place] [address] [place] [address] 5 WEEK FOLLOW UP AFTER PET SCAN Hematology/Oncol ogy Comment on above: 5 WEEK FOLLOW UP AFTER PET SCAN Start: 03-28-2025 End: 03-28-2025 Patient encounter procedure 03/28/2025 2:15 PM EDT Office Visit [facility] [address] [place] [address] 5 WEEK FOLLOW UP AFTER PET SCAN [facility] Comment on above: 5 WEEK FOLLOW UP AFTER PET SCAN Start: 03-26-2025 End: 03-26-2025 ambulatory 03/26/2025 11:00 AM EDT Treatment [facility] [place] [facility] [address] [place] [address] Akbar Monreal, MANAGER STORY [facility] [place] [facility] Start: 03-23-2025 End: 03-23-2026 PET+CT Guidance for localization of tumor of Skull base to mid-thigh-- W [id number] IV NM PET/CT SKULL-THIGH SUBSEQUENT Radiology Routine Malignant neoplasm of lower lobe of right lung (HCC) Expected: 03/23/2025 (Approximate), Expires: 03/23/2026 [facility] Work Phone: Comment on above: Expected: 03/23/2025 (Approximate), Expi res: 03/23/2026 Start: 03-23-2025 End: 03-23-2025 Patient encounter procedure 03/23/2025 10:00 AM EDT Appointment Radiology Pet [facility] [address] [place] [address] Comment on above: PET Start: 03-22-2025 End: 03-22-2025 ambulatory [facility] [place] [facility] Comment on above: Arrived Start: 03-20-2025 End: 03-20-2025 Patient encounter procedure 03/20/2025 11:30 AM EDT Office Visit Palliative Medicine [address] [place] [address] Sheila Freeman, FORENSIC MEDICAL EXAMINER.DEPARTMENT OPERATIONS MANAGER [address] [place] [address] 4 week follow up Palliative Medicine Comment on above: 4 week follow up Start: 03-19-2025 End: 03-19-2025 ambulatory [facility] [place] [facility] Comment on above: Arrived Start: 03-16-2025 End: 03-16-2025 ambulatory [facility] [place] [facility] Comment on above: Weakness (Primary Dx); Adverse effect of antineoplastic and immunosuppressive drugs, initial encounter; Other fatigue Start: 03-14-2025 End: 03-14-2026 Device Interrogation Device Interrogation Cardiac Services Routine Pacemaker- [place] Expected: 03/14/2025, Expires: 03/14/2026 [facility] Work Phone: Comment on above: Expected: 03/14/2025, Expires: Start: 03-14-2025 End: 03-14-2025 Clinical Support 03/14/2025 11:30 AM EDT Clinical Support [facility] [address] [facility] [address] [place] [address] [facility] Start: 03-13-2025 End: 03-13-2025 ambulatory [facility] Comment on above: Arrived Start: 03-09-2025 End: 03-09-2025 ambulatory [facility] Comment on above: Arrived Start: 03-07-2025 End: 03-07-2025 ambulatory 03/07/2025 3:00 PM EDT Evaluation [facility] [address] [place] [address] Terra Rashid, PT Arrived [facility] Comment on above: Arrived Start: 02-23-2025 End: 02-23-2025 Follow-up encounter 02/23/2025 11:15 AM EDT Education Nutrition Therapy [address] [place] [address] Tammie Bunn, RD [address] [place], [place] [id number] follow up Nutrition Therapy Comment on above: follow up Start: 02-22-2025 End: 02-22-2025 Nursing evaluation of patient and report 02/22/2025 11:45 AM EDT Nurse Visit Radiation Oncology [address] [facility] [place] [address] Mae, Nurse Radt [address] [facility] [place] [address] pulse monitoring Radiation Oncology Comment on above: pulse monitoring Start: 02-22-2025 End: 02-22-2025 Patient encounter procedure 02/22/2025 11:45 AM EDT Appointment Radiation Oncology [address] [facility] [place] [address] Lung Radiation Oncology Comment on above: Lung Start: 02-22-2025 End: 02-22-2025 ambulatory 02/22/2025 10:45 AM EDT Infusion Center Hematology/Oncology [address] [facility] [place] [address] [facility] Hematology/Oncol ogy Comment on above: NEULASTA Start: 02-21-2025 End: 02-21-2025 Follow-up encounter Hematology/Oncol ogy Comment on above: lab follow up and chemotx Cisplatin + IV MAG - PUT PATIENT BACK ON WEDNESDAY Start: 02-21-2025 End: 02-21-2025 Patient encounter procedure [facility] Comment on above: lab follow up and chemotx Cisplatin + IV MAG - PUT PATIENT BACK ON WEDNESDAY Location: [facility] Start: 02-21-2025 End: 02-21-2025 Nursing evaluation of patient and report Radiation Oncology Comment on above: pulse monitoring Start: 02-21-2025 End: 02-21-2025 Patient encounter procedure Radiation Oncology Comment on above: Lung Location: [facility] Lung - 845 LAB, 9 RE DDY, 930 CHEMO x6 HRS Start: 02-20-2025 End: 02-20-2025 Nursing evaluation of patient and report 02/20/2025 11:45 AM EDT Nurse Visit Radiation Oncology [address] [facility] [place] [address] Mae, Nurse Radt [address] [facility] [place] [address] pulse monitoring Radiation Oncology Comment on above: pulse monitoring Start: 02-20-2025 End: 02-20-2025 Patient encounter procedure Radiation Oncology Comment on above: Lung Lung- Pall med 10:30 Start: 02-20-2025 End: 02-20-2025 Patient encounter procedure Palliative Medicine Comment on above: 4 week follow up PLEASE MOHAMUD HEREDIA VISIT Start: 02-19-2025 End: 05-21-2025 CBC W Auto Differential panel - Blood COMPLETE BLOOD COUNT AND DIFFERENTIAL Lab Routine Malignant neoplasm of lower lobe of right lung (HCC) Expected: 02/19/2025, Expires: 05/21/2025 [facility] Work Phone: Comment on above: Expected: 02/19/2025, Expires: Start: 02-19-2025 End: 05-21-2025 Comprehensive metabolic 2000 panel - Serum or Plasma COMPREHENSIVE METABOLIC PANEL Lab Routine Malignant neoplasm of lower lobe of right lung (HCC) Expected: 02/19/2025, Expires: 05/21/2025 [facility] Comment on above: Expected: 02/19/2025, Expires: Start: 02-19-2025 End: 05-21-2025 Magnesium [Mass/volume] in Serum or Plasma MAGNESIUM Lab Routine Malignant neoplasm of lower lobe of right lung (HCC) Expected: 02/19/2025, Expires: 05/21/2025 [facility] Comment on above: Expected: 02/19/2025, Expires: Start: 02-19-2025 End: 02-19-2025 Nursing evaluation of patient and report 02/19/2025 11:45 AM EDT Nurse Visit Radiation Oncology [address] [facility] [place] [address] Mae, Nurse Radt [address] [facility] [place] [address] pulse monitoring Radiation Oncology Comment on above: pulse monitoring Start: 02-19-2025 End: 02-19-2025 Patient encounter procedure 02/19/2025 11:45 AM EDT Appointment Radiation Oncology [address] [facility] [place] [address] Lung Radiation Oncology Comment on above: Lung Start: 02-16-2025 End: 02-16-2025 Nursing evaluation of patient and report 02/16/2025 11:45 AM EDT Nurse Visit Radiation Oncology [address] [facility] [place] [address] Mae, Nurse Radt [address] [facility] [place] [address] pulse monitoring Radiation Oncology Comment on above: pulse monitoring Start: 02-16-2025 End: 02-16-2025 Patient encounter procedure 02/16/2025 11:45 AM EDT Appointment Radiation Oncology [address] [facility] [place] [address] Lung Radiation Oncology Comment on above: Lung Start: 02-15-2025 End: 02-15-2025 Nursing evaluation of patient and report 02/15/2025 11:45 AM EDT Nurse Visit Radiation Oncology [address] [facility] [place] [address] Mae, Nurse Radt [address] [facility] [place] [address] pulse monitoring Radiation Oncology Comment on above: pulse monitoring Start: 02-15-2025 End: 02-15-2025 Patient encounter procedure 02/15/2025 11:45 AM EDT Appointment Radiation Oncology [address] [facility] [place] [address] Lung Radiation Oncology Comment on above: Lung Start: 02-14-2025 End: 02-14-2025 Nursing evaluation of patient and report 02/14/2025 11:45 AM EDT Nurse Visit Radiation Oncology [address] [facility] [place] [address] Mae, Nurse Radt [address] [facility] [place] [address] pulse monitoring Radiation Oncology Comment on above: [...] PM EDT Visit (SP) Office Hematology/Oncology [address] [facility] [place] [address] Madison Gagnon LMT [facility] Comment on above: massage-pt in lobby Start: 02-13-2025 End: 02-13-2025 Nursing evaluation of patient and report 02/13/2025 11:45 AM EDT Nurse Visit Radiation Oncology [address] [facility] [place] [address] Nurse Mae Radt [address] [facility] [place] [address] pulse monitoring Radiation Oncology Comment on above: pulse monitoring Start: 02-13-2025 End: 02-13-2025 Patient encounter procedure Radiation Oncology Comment on above: Lung Lung- massage 12:30 Start: 02-12-2025 End: 05-14-2025 CBC W Auto Differential panel - Blood COMPLETE BLOOD COUNT AND DIFFERENTIAL Lab Routine Malignant neoplasm of lower lobe of right lung (HCC) Expected: 02/12/2025 (Approximate), Expires: 05/14/2025 [facility] Work Phone: Comment on above: Expected: 02/12/2025 (Approximate), Expi res: 05/14/2025 Start: 02-12-2025 End: 05-14-2025 Comprehensive metabolic 2000 panel - Serum or Plasma COMPREHENSIVE METABOLIC PANEL Lab Routine Malignant neoplasm of lower lobe of right lung (HCC) Expected: 02/12/2025 (Approximate), Expires: 05/14/2025 [facility] Comment on above: Expected: 02/12/2025 (Approximate), Expi res: 05/14/2025 Start: 02-12-2025 COVID-19 Vaccine (4 - Mixed Product risk season) COVID-19 Vaccine (4 - Mixed Product risk season) [facility] Start: 02-12-2025 Influenza vaccination [facility] Start: 02-09-2025 End: 02-09-2026 Device Interrogation Device Interrogation Cardiac Services Routine AV block Pacemaker Expected: 02/09/2025, Expires: 02/09/2026 [facility] Work Phone: Comment on above: Expected: 02/09/2025, Expires: Start: 02-09-2025 End: 02-09-2025 Nursing evaluation of patient and report 02/09/2025 11:45 AM EDT Nurse Visit Radiation Oncology [address] [facility] [place] [address] Nurse Octavio Garciat [address] [facility] [place] [address] pulse monitoring Radiation Oncology Comment on above: [...] [address] [facility] [place] [address] Mae, Nurse Radt [address] [facility] [place] [address] pulse monitoring Radiation Oncology Comment on above: [...] [facility] [place] [address] Mae, Nurse Radt [address] [facility] [place] [address] pulse monitoring Radiation Oncology Comment on above: [...] [facility] [place] [address] Mae, Nurse Radt [address] [place] [address] [place] [address] pulse monitoring Radiation Oncology Comment on above: pulse monitoring Start: 02-06-2025 End: 02-06-2025 Patient encounter procedure Radiation Oncology Comment on above: Lung Lung- massage 12:30, chemo 1 (2 hrs) Start: 02-05-2025 End: 02-05-2025 Nursing evaluation of patient and report 02/05/2025 11:45 AM EDT Nurse Visit Radiation Oncology [address] [facility] [place] [address] Mae, Nurse Radt [address] [facility] [place] [address] pulse monitoring Radiation Oncology Comment on above: [...] AM EDT Nurse Visit Radiation Oncology [address] [place] [address] [place] [address] Mae, Nurse Radt [address] [place] [address] [place] [address] pulse monitoring Radiation Oncology Comment on above: pulse monitoring Start: 02-02-2025 End: 02-02-2025 Patient encounter procedure 02/02/2025 11:45 AM EDT Appointment Radiation Oncology [address] [place] [address] Lung Radiation Oncology Comment on above: Lung Start: 02-01-2025 End: 02-01-2025 Nursing evaluation of patient and report 02/01/2025 11:45 AM EDT Nurse Visit Radiation Oncology [address] [place] [address] Mae, Nurse Radt [address] [facility] [place] [address] pulse monitoring Radiation Oncology Comment on above: pulse monitoring Start: 02-01-2025 End: 02-01-2025 Patient encounter procedure 02/01/2025 11:45 AM EDT Appointment Radiation Oncology [address] [place] [address] Lung Radiation Oncology Comment on above: Lung Start: 01-31-2025 End: 01-31-2025 Nursing evaluation of patient and report 01/31/2025 11:45 AM EDT Nurse Visit Radiation Oncology [address] [place] [address] Mae, Nurse Radt [address] [facility] [place] [address] pulse monitoring Radiation Oncology Comment on above: pulse monitoring Start: 01-31-2025 End: 01-31-2025 Patient encounter procedure Radiation Oncology Comment on above: Lung Location: [facility] Start: 01-30-2025 End: 01-30-2025 Nursing evaluation of patient and report 01/30/2025 11:45 AM EDT Nurse Visit Radiation Oncology [address] [place] [address] Mae, Nurse Radt [address] [place] [address] pulse monitoring Radiation Oncology Comment on above: pulse monitoring Start: 01-30-2025 End: 01-30-2025 Patient encounter procedure 01/30/2025 11:45 AM EDT Appointment Radiation Oncology [address] [place] [address] Lung Radiation Oncology Comment on above: Lung Start: 01-30-2025 End: 01-30-2025 ambulatory 01/30/2025 10:00 AM EDT Visit (SP) Office Hematology/Oncology [address] [facility] [place] [address] Madison Gagnon, CHRISTELLET massage-pt in [facility] Hematology/Oncol og Comment on above: massage-pt in [facility] Start: 01-30-2025 End: 01-30-2025 Patient encounter procedure Radiation Oncology Comment on above: lung- pulse ox during tx C34.31 (ICD-10-CM) - Malignant neoplasm of lower lobe of right lung (HCC) Start: 01-29-2025 End: 01-29-2025 Nursing evaluation of patient and report 01/29/2025 11:45 AM EDT Nurse Visit Radiation Oncology [address] [facility] [place] [address] Mae, Nurse Radt [address] [facility] [place] [address] pulse monitoring Radiation Oncology Comment on above: pulse monitoring Start: 01-29-2025 End: 01-29-2025 Patient encounter procedure 01/29/2025 11:45 AM EDT Appointment Radiation Oncology [address] [facility] [place] [address] Lung Radiation Oncology Comment on above: Lung Start: 01-29-2025 End: 01-29-2025 Patient encounter procedure 01/29/2025 8:15 AM EDT Appointment Radiation Oncology [address] [facility] [place] [address] lung- pulse ox during tx Radiation Oncology Comment on above: lung- pulse ox during tx Start: 01-26-2025 End: 04-27-2025 Bacteria identified in Blood by Culture [facility] Comment on above: Expected: 01/26/2025, Expires: Start: 01-26-2025 End: 04-27-2025 Bacteria identified in Urine by Culture [facility] Work Phone: Comment on above: Expected: 01/26/2025, Expires: Start: 01-26-2025 End: 04-27-2025 URINALYSIS, DIPSTICK ONLY URINALYSIS, DIPSTICK ONLY Lab Routine Fever in adult Expected: 01/26/2025, Expires: 04/27/2025 [facility] Comment on above: Expected: 01/26/2025, Expires: 5 Start: 01-26-2025 End: 02-24-2026 XR Chest PA and Lateral [facility] Comment on above: Expected: 01/26/2025, Expires: 6 Start: 01-26-2025 End: 01-26-2025 Nursing evaluation of patient and report 01/26/2025 11:45 AM EDT Nurse Visit Radiation Oncology [address] [place] [address] Mae, Nurse Radt [address] [facility] [address] pulse monitoring Radiation Oncology Comment on above: pulse monitoring Start: 01-26-2025 End: 01-26-2025 Patient encounter procedure 01/26/2025 11:45 AM EDT Appointment Radiation Oncology [address] [place] [address] Lung Radiation Oncology Comment on above: Lung Start: 01-26-2025 End: 01-26-2025 Patient encounter procedure Radiation Oncology Comment on above: lung- pulse ox during tx Lab and x ray per Ra diollogy and Dr Wilkerson Start: 01-25-2025 End: 01-25-2025 Nursing evaluation of patient and report 01/25/2025 11:45 AM EDT Nurse Visit Radiation Oncology [address] [place] [address] Mae, Nurse Radt [address] [facility] [place] [address] pulse monitoring Radiation Oncology Comment on above: pulse monitoring Start: 01-25-2025 End: 01-25-2025 Patient encounter procedure 01/25/2025 11:45 AM EDT Appointment Radiation Oncology [address] [place] [address] Lung Radiation Oncology Comment on above: Lung Start: 01-25-2025 End: 01-25-2025 Patient encounter procedure 01/25/2025 8:15 AM EDT Appointment Radiation Oncology [address] [place] [address] lung- pulse ox during tx Radiation Oncology Comment on above: lung- pulse ox during tx Start: 01-25-2025 [facility] Start: 01-24-2025 End: 01-24-2025 Nursing evaluation of patient and report 01/24/2025 11:45 AM EDT Nurse Visit Radiation Oncology [address] [facility] [place] [address] Mae, Nurse Radt [address] [facility] [place] [address] pulse monitoring Radiation Oncology Comment on above: pulse monitoring Start: 01-24-2025 End: 01-24-2025 Patient encounter procedure 01/24/2025 11:45 AM EDT Appointment Radiation Oncology [address] [facility] [place] [address] Lung Radiation Oncology Comment on above: Lung Start: 01-24-2025 End: 01-24-2025 Patient encounter procedure Radiation Oncology Comment on above: lung- pulse ox during tx Location: [facility] Start: 01-24-2025 [facility] Start: 01-23-2025 End: 01-23-2025 ambulatory 01/23/2025 12:30 PM EDT Visit (SP) Office Hematology/Oncology [address] [facility] [place] [address] Madison Gagnon LMT massage-pt in [facility] Hematology/Oncol og Comment on above: massage-pt in lobby Start: 01-23-2025 End: 01-23-2025 Nursing evaluation of patient and report 01/23/2025 11:45 AM EDT Nurse Visit Radiation Oncology [address] [facility] [place] [address] Mae, Nurse Radt [address] [facility] [place] [address] pulse monitoring Radiation Oncology Comment on above: pulse monitoring Start: 01-23-2025 End: 01-23-2025 Patient encounter procedure 01/23/2025 11:45 AM EDT Appointment Radiation Oncology [address] [facility] [place] [address] Lung Radiation Oncology Comment on above: Lung Start: 01-23-2025 End: 01-23-2025 Patient encounter procedure Radiation Oncology Comment on above: lung- pulse ox during tx C34.31 (ICD-10-CM) - Malignant neoplasm of lower lobe of right lung (HCC) Start: 01-23-2025 [facility] Start: 01-22-2025 End: 01-22-2025 Nursing evaluation of patient and report 01/22/2025 11:45 AM EDT Nurse Visit Radiation Oncology [address] [place] [address] Mae, Nurse Radt [address] [place] [address] pulse monitoring Radiation Oncology Comment on above: pulse monitoring Start: 01-22-2025 End: 01-22-2025 Patient encounter procedure 01/22/2025 11:45 AM EDT Appointment Radiation Oncology [address] [place] [address] Lung Radiation Oncology Comment on above: Lung Start: 01-22-2025 End: 01-22-2025 Patient encounter procedure 01/22/2025 8:15 AM EDT Appointment Radiation Oncology [address] [place] [address] lung- pulse ox during tx Radiation Oncology Comment on above: lung- pulse ox during tx Start: 01-22-2025 [facility] Start: 01-21-2025 [facility] Start: 01-20-2025 [facility] Start: 01-19-2025 End: 01-19-2025 Nursing evaluation of patient and report 01/19/2025 11:45 AM EDT Nurse Visit Radiation Oncology [address] [place] [address] Mae, Nurse Radt [address] [place] [address] pulse monitoring Radiation Oncology Comment on above: pulse monitoring Start: 01-19-2025 End: 01-19-2025 Patient encounter procedure 01/19/2025 11:45 AM EDT Appointment Radiation Oncology [address] [place] [address] Lung Radiation Oncology Comment on above: Lung Start: 01-19-2025 End: 01-19-2025 Patient encounter procedure 01/19/2025 8:15 AM EDT Appointment Radiation Oncology [address] [place] [address] lung- pulse ox during tx Radiation Oncology Comment on above: lung- pulse ox during tx Start: 01-19-2025 [facility] Start: 01-18-2025 End: 01-18-2025 Nursing evaluation of patient and report 01/18/2025 11:45 AM EDT Nurse Visit Radiation Oncology [address] [place] [address] Mae, Nurse Radt [address] [place] [address] pulse monitoring Radiation Oncology Comment on above: pulse monitoring Start: 01-18-2025 End: 01-18-2025 Patient encounter procedure 01/18/2025 11:45 AM EDT Appointment Radiation Oncology [address] [place] [address] Lung Radiation Oncology Comment on above: Lung Start: 01-18-2025 Referral to infectious diseases physician [facility] Start: 01-18-2025 End: 01-18-2025 Patient encounter procedure 01/18/2025 8:15 AM EDT Appointment Radiation Oncology [address] [place] [address] lung- pulse ox during tx Radiation Oncology Comment on above: lung- pulse ox during tx Start: 01-18-2025 End: 01-18-2025 [facility] Start: 01-17-2025 Consultation [facility] Start: 01-17-2025 End: 01-17-2025 Nursing evaluation of patient and report 01/17/2025 11:45 AM EDT Nurse Visit Radiation Oncology [address] [place] [address] Mae, Nurse Radt [address] [place] [address] pulse monitoring Radiation Oncology Comment on above: pulse monitoring Start: 01-17-2025 End: 01-17-2025 Patient encounter procedure 01/17/2025 11:45 AM EDT Appointment Radiation Oncology [address] [place] [address] Lung Radiation Oncology Comment on above: Lung Start: 01-17-2025 Referral to palliative care physician [facility] Start: 01-17-2025 End: 01-17-2025 Patient encounter procedure Radiation Oncology Comment on above: lung- pulse ox during tx Location: [facility] Start: 01-17-2025 [facility] Start: 01-16-2025 End: 01-16-2025 Nursing evaluation of patient and report 01/16/2025 3:45 PM EDT Nurse Visit Radiation Oncology [address] [facility] [place] [address] [place], Nurse Radt [address] [facility] [place] [address] pulse monitoring Radiation Oncology Comment on above: pulse monitoring Start: 01-16-2025 End: 01-16-2025 Patient encounter procedure 01/16/2025 3:45 PM EDT Appointment Radiation Oncology [address] [facility] [place] [address] Lung- pall med 1st @ 3 Radiation Oncology Comment on above: Lung- pall med 1st @ 3 Start: 01-16-2025 End: 01-16-2025 ambulatory 01/16/2025 2:00 PM EDT Visit (SP) Office Hematology/Oncology [address] [place] [address] [place] [address] Madison Gagnon LMT massage-pt in lobby Hematology/Oncol og Comment on above: massage-pt in lobby Start: 01-16-2025 End: 01-16-2025 Patient encounter procedure 01/16/2025 11:45 AM EDT Appointment Radiation Oncology [address] [facility] [place] [address] Lung Radiation Oncology Comment on above: Lung Start: 01-16-2025 End: 01-16-2025 Patient encounter procedure Radiation Oncology Comment on above: lung- pulse ox during tx Consult pall med dx lung cancer Lung seeing Carmen rosen 3:00pm please offer PHONE v isit for Nutrtion visit Start: 01-16-2025 [facility] Start: 01-15-2025 Bacteria identified in Blood by Culture Blood Culture [facility] Start: 01-15-2025 End: 04-16-2025 CBC W Auto Differential panel - Blood COMPLETE BLOOD COUNT AND DIFFERENTIAL Lab Routine Malignant neoplasm of lower lobe of right lung (HCC) Expected: 01/15/2025 (Approximate), Expires: 04/16/2025 [facility] Work Phone: Comment on above: Expected: 01/15/2025 (Approximate), Expi res: 04/16/2025 Start: 01-15-2025 End: 04-16-2025 Comprehensive metabolic 2000 panel - Serum or Plasma COMPREHENSIVE METABOLIC PANEL Lab Routine Malignant neoplasm of lower lobe of right lung (HCC) Expected: 01/15/2025 (Approximate), Expires: 04/16/2025 [facility] Comment on above: Expected: 01/15/2025 (Approximate), Expi res: 04/16/2025 Start: 01-15-2025 End: 04-16-2025 Magnesium [Mass/volume] in Serum or Plasma MAGNESIUM Lab Routine Malignant neoplasm of lower lobe of right lung (HCC) Expected: 01/15/2025 (Approximate), Expires: 04/16/2025 [facility] Comment on above: Expected: 01/15/2025 (Approximate), Expi res: 04/16/2025 Start: 01-15-2025 End: 01-15-2025 Hospital admission [facility] Start: 01-15-2025 Physical therapy procedure [facility] Start: 01-15-2025 Referral to occupational therapist [facility] Start: 01-15-2025 Referral to speech and language therapy service [facility] Start: 01-15-2025 End: 01-15-2025 [facility] Start: 01-15-2025 End: 01-15-2025 Nursing evaluation of patient and report 01/15/2025 11:45 AM EDT Nurse Visit Radiation Oncology [address] [place] [address] Mae, Nurse Radt [address] [place] [address] pulse monitoring Radiation Oncology Comment on above: [...] [address] [facility] [place] [address] Mae, Nurse Radt [address] [place] [address] [place] [address] pulse monitoring Radiation Oncology Comment on above: pulse monitoring Start: 01-12-2025 End: 01-12-2025 Patient encounter procedure Radiation Oncology Comment on above: Lung Lung chemo 12:00 Start: 01-12-2025 End: 01-12-2025 Nursing evaluation of patient and report 01/12/2025 8:30 AM EDT Nurse Visit Radiation Oncology [address] [place] [address] [place] [address] Mae, Nurse Radt [address] [place] [address] [place] [address] pulse monitoring Radiation Oncology Comment on above: pulse monitoring Start: 01-12-2025 End: 01-12-2025 Patient encounter procedure 01/12/2025 8:15 AM EDT Appointment Radiation Oncology [address] [place] [address] lung- pulse ox during tx Radiation Oncology [...] [facility] [address] Mae, Nurse Radt [address] [place] [address] [place] [address] pulse monitoring Radiation Oncology Comment on above: pulse monitoring Start: 01-11-2025 End: 01-11-2025 Patient encounter procedure Radiation Oncology Comment on above: Lung Lung chemo 12;00pm Start: 01-11-2025 End: 01-11-2025 Nursing evaluation of patient and report 01/11/2025 8:30 AM EDT Nurse Visit Radiation Oncology [address] [place] [address] [place] [address] Mae, Nurse Radt [address] [place] [address] [place] [address] pulse monitoring Radiation Oncology Comment on above: pulse monitoring Start: 01-11-2025 End: 01-11-2025 Patient encounter procedure 01/11/2025 8:15 AM EDT Appointment Radiation Oncology [address] [place] [address] [place] [address] lung- pulse ox during tx Radiation Oncology Comment on above: lung- pulse ox during tx Start: 01-10-2025 End: 01-10-2025 Follow-up encounter 01/10/2025 1:00 PM EDT Infusion Center Hematology/Oncology [address] [place] [address] [place] [address] lab follow up and chemotx Cisplatin + Etoposide day 1-5 Hematology/Oncol ogy Comment on above: lab follow up and chemotx Cisplatin + Et oposide day 1-5 Start: 01-10-2025 End: 01-10-2025 Nursing evaluation of patient and report 01/10/2025 11:45 AM EDT Nurse Visit Radiation Oncology [address] [place] [address] [place] [address] Mae, Nurse Radt [address] [place] [address] [place] [address] pulse monitoring Radiation Oncology Comment on above: pulse monitoring Start: 01-10-2025 End: 01-10-2025 Patient encounter procedure Radiation Oncology Comment on above: Lung Lung chemo 1:00pm Start: 01-10-2025 End: 01-10-2025 Nursing evaluation of patient and report 01/10/2025 8:30 AM EDT Nurse Visit Radiation Oncology [address] [facility] [place] [address] Mae, Nurse Radt [address] [place] [address] [place] [address] pulse monitoring Radiation Oncology Comment on above: pulse monitoring Start: 01-10-2025 End: 01-10-2025 Patient encounter procedure Radiation Oncology Comment on above: lung- pulse ox during tx Location: [facility] Start: 01-09-2025 End: 01-09-2025 Nursing evaluation of patient and report 01/09/2025 3:15 PM EDT Nurse Visit Radiation Oncology [address] [facility] [place] [address] [place], Nurse Radt [address] [place] [address] [place] [address] pulse monitoring Radiation Oncology Comment on above: pulse monitoring Start: 01-09-2025 End: 01-09-2025 ambulatory 01/09/2025 2:30 PM EDT Visit (SP) Office Hematology/Oncology [address] [place] [address] [place] [address] Madison Gagnon LMT massage-pt in [facility] Hematology/Oncol ogy Comment on above: [facility] Start: 01-09-2025 End: 01-09-2025 Nursing evaluation of patient and report 01/09/2025 11:45 AM EDT Nurse Visit Radiation Oncology [address] [facility] [place] [address] [place], Nurse Radt [address] [facility] [place] [address] pulse monitoring Radiation Oncology Comment on above: [...] [address] [facility] [place] [address] Mae, Nurse Radt [address] [facility] [place] [address] pulse monitoring Radiation Oncology Comment on above: [...] procedure 01/08/2025 9:45 AM EDT Office Visit [facility] [address] [facility] [place] [address] lab follow up and chemotx Cisplatin + Etoposide day 1-5 [facility] Comment on above: lab follow up and chemotx Cisplatin + Et oposide day 1-5 Start: 01-08-2025 End: 01-08-2025 Nursing evaluation of patient and report Radiation Oncology Comment on above: pulse monitoring cisplatin + etoposid e Start: 01-08-2025 End: 01-08-2025 Patient encounter procedure 01/08/2025 8:15 AM EDT Appointment Radiation Oncology [address] [facility] [place] [address] lung- pulse ox during tx Radiation Oncology Comment on above: lung- pulse ox during tx Start: 01-06-2025 [facility] Start: 01-05-2025 Aerobic microbial culture Aerobic Culture [facility] Start: 01-05-2025 Microbial culture of sputum [facility] Start: 01-05-2025 End: 01-05-2025 Nursing evaluation of patient and report 01/05/2025 11:45 AM EDT Nurse Visit Radiation Oncology [address] [facility] [address] Mae, Nurse Radt [address] [facility] [place] [address] pulse monitoring Radiation Oncology Comment on above: pulse monitoring Start: 01-05-2025 End: 01-05-2025 Patient encounter procedure 01/05/2025 11:45 AM EDT Appointment Radiation Oncology [address] [place] [address] Lung Radiation Oncology Comment on above: Lung Start: 01-05-2025 End: 01-05-2025 Nursing evaluation of patient and report 01/05/2025 8:30 AM EDT Nurse Visit Radiation Oncology [address] [place] [address] Mae, Nurse Radt [address] [facility] [place] [address] pulse monitoring Radiation Oncology Comment on above: pulse monitoring Start: 01-05-2025 End: 01-05-2025 Patient encounter procedure 01/05/2025 8:15 AM EDT Appointment Radiation Oncology [address] [place] [address] lung- pulse ox during tx Radiation Oncology Comment on above: lung- pulse ox during tx Start: 01-04-2025 End: 01-04-2025 Nursing evaluation of patient and report 01/04/2025 11:45 AM EDT Nurse Visit Radiation Oncology [address] [place] [address] Mae, Nurse Radt [address] [facility] [place] [address] pulse monitoring Radiation Oncology Comment on above: pulse monitoring Start: 01-04-2025 End: 01-04-2025 Patient encounter procedure 01/04/2025 11:45 AM EDT Appointment Radiation Oncology [address] [place] [address] Lung Radiation Oncology Comment on above: Lung Start: 01-04-2025 End: 01-04-2025 Nursing evaluation of patient and report 01/04/2025 8:30 AM EDT Nurse Visit Radiation Oncology [address] [place] [address] Mae, Nurse Radt [address] [place] [address] pulse monitoring Radiation Oncology Comment on above: pulse monitoring Start: 01-04-2025 End: 01-04-2025 Patient encounter procedure 01/04/2025 8:15 AM EDT Appointment Radiation Oncology [address] [place] [address] lung- pulse ox during tx Radiation Oncology Comment on above: lung- pulse ox during tx Start: 01-03-2025 Administration of prophylactic treatment [facility] Start: 01-03-2025 End: 01-03-2025 Nursing evaluation of patient and report 01/03/2025 11:45 AM EDT Nurse Visit Radiation Oncology [address] [place] [address] Mae, Nurse Radt [address] [place] [address] pulse monitoring Radiation Oncology Comment on above: pulse monitoring Start: 01-03-2025 End: 01-03-2025 Patient encounter procedure 01/03/2025 11:45 AM EDT Appointment Radiation Oncology [address] [place] [address] Lung Radiation Oncology Comment on above: Lung Start: 01-03-2025 End: 01-03-2025 Nursing evaluation of patient and report 01/03/2025 8:30 AM EDT Nurse Visit Radiation Oncology [address] [place] [address] Mae, Nurse Radt [address] [place] [address] pulse monitoring Radiation Oncology Comment on above: pulse monitoring Start: 01-03-2025 End: 01-03-2025 Patient encounter procedure 01/03/2025 8:15 AM EDT Appointment Radiation Oncology [address] [facility] [place] [address] lung- pulse ox during tx Radiation Oncology Comment on above: lung- pulse ox during tx Start: 01-03-2025 Plain chest X-ray XR chest 2V* [facility] Start: 01-03-2025 [facility] Start: 01-02-2025 Hospital admission [facility] Start: 01-02-2025 End: 01-02-2025 [facility] Start: 01-02-2025 Physical therapy procedure [facility] Start: 01-02-2025 Referral to occupational therapist [facility] Start: 01-02-2025 Microbial culture of sputum [facility] Start: 01-02-2025 End: 01-02-2025 Nursing evaluation of patient and report 01/02/2025 3:15 PM EDT Nurse Visit Radiation Oncology [address] [facility] [place] [address] Mae, Nurse Radt [address] [facility] [place] [address] pulse monitoring Radiation Oncology Comment on above: pulse monitoring Start: 01-02-2025 End: 01-02-2025 ambulatory 01/02/2025 2:30 PM EDT Visit (SP) Office Hematology/Oncology [address] [facility] [place] [address] Madison Gagnon, TERRANEC massage-pt in lobby Hematology/Oncol ogy Comment on above: massage-pt in lobby Start: 01-02-2025 Bacteria identified in Blood by Culture Blood Culture [facility] Start: 01-02-2025 End: 04-03-2025 CBC W Auto Differential panel - Blood COMPLETE BLOOD COUNT AND DIFFERENTIAL Lab Routine Malignant neoplasm of lower lobe of right lung (HCC) Expected: 01/02/2025 (Approximate), Expires: 04/03/2025 [facility] Work Phone: Comment on above: Expected: 01/02/2025 (Approximate), Expi res: 04/03/2025 Start: 01-02-2025 End: 04-03-2025 Comprehensive metabolic 2000 panel - Serum or Plasma COMPREHENSIVE METABOLIC PANEL Lab Routine Malignant neoplasm of lower lobe of right lung (HCC) Expected: 01/02/2025 (Approximate), Expires: 04/03/2025 [facility] Comment on above: Expected: 01/02/2025 (Approximate), Expi res: 04/03/2025 Start: 01-02-2025 End: 04-03-2025 [facility] Lab Routine Malignant neoplasm of lower lobe of right lung (HCC) Expected: 01/02/2025 (Approximate), Expires: 04/03/2025 [facility] Comment on above: Expected: 01/02/2025 (Approximate), Expi res: 04/03/2025 Start: 01-02-2025 End: 04-03-2025 Magnesium [Mass/volume] in Serum or Plasma MAGNESIUM Lab Routine Malignant neoplasm of lower lobe of right lung (HCC) Expected: 01/02/2025 (Approximate), Expires: 04/03/2025 [facility] Comment on above: Expected: 01/02/2025 (Approximate), [...] [address] [facility] [place] [address] Mae, Nurse Radt [address] [facility] [place] [address] pulse monitoring Radiation Oncology Comment on above: pulse monitoring Start: 01-01-2025 End: 01-01-2025 Patient encounter procedure 01/01/2025 8:15 AM EDT Appointment Radiation Oncology [address] [facility] [place] [address] lung- pulse ox during tx Radiation Oncology Comment on above: lung- pulse ox during tx Start: 12-29-2024 End: 12-29-2024 Nursing evaluation of patient and report 12/29/2024 8:30 AM EDT Nurse Visit Radiation Oncology [address] [facility] [place] [address] Mae, Nurse Radt [address] [facility] [place] [address] pulse monitoring Radiation Oncology Comment on above: pulse monitoring Start: 12-29-2024 End: 12-29-2024 Patient encounter procedure 12/29/2024 8:15 AM EDT Appointment Radiation Oncology [address] [facility] [place] [address] lung- pulse ox during tx Radiation Oncology Comment on above: lung- pulse ox during tx Start: 12-28-2024 End: 12-28-2024 Nursing evaluation of patient and report 12/28/2024 8:30 AM EDT Nurse Visit Radiation Oncology [address] [facility] [place] [address] Mae, Nurse Radt [address] [facility] [place] [address] pulse monitoring Radiation Oncology Comment on above: pulse monitoring Start: 12-28-2024 End: 12-28-2024 Patient encounter procedure 12/28/2024 8:15 AM EDT Appointment Radiation Oncology [address] [facility] [place] [address] lung- pulse ox during tx Radiation Oncology Comment on above: lung- pulse ox during tx Start: 12-27-2024 End: 12-27-2024 Nursing evaluation of patient and report 12/27/2024 8:30 AM EDT Nurse Visit Radiation Oncology [address] [facility] [place] [address] Mae, Nurse Radt [address] [facility] [place] [address] pulse monitoring Radiation Oncology Comment on above: pulse monitoring Start: 12-27-2024 End: 12-27-2024 Patient encounter procedure 12/27/2024 8:15 AM EDT Appointment Radiation Oncology [address] [facility] [place] [address] lung- pulse ox during tx Radiation Oncology Comment on above: lung- pulse ox during tx Start: 12-26-2024 End: 12-26-2024 Nursing evaluation of patient and report 12/26/2024 3:15 PM EDT Nurse Visit Radiation Oncology [address] [facility] [place] [address] Mae, Nurse Radt [address] [facility] [place] [address] Pulse Monitoring Radiation Oncology Comment on above: [...] [facility] [place] [address] Mae, Nurse Radt [address] [facility] [place] [address] Pulse Monitoring Radiation Oncology Comment on above: Pulse Monitoring Start: 12-25-2024 End: 12-25-2024 Patient encounter procedure 12/25/2024 8:15 AM EDT Appointment Radiation Oncology [address] [facility] [place] [address] lung- pulse ox during tx Radiation Oncology Comment on above: lung- pulse ox during tx Start: 12-22-2024 End: 12-22-2024 Nursing evaluation of patient and report 12/22/2024 1:30 PM EDT Nurse Visit Radiation Oncology [address] [facility] [place] [address] Mae, Nurse Radt [address] [facility] [place] [address] Pulse Monitoring Radiation Oncology Comment on above: Pulse Monitoring Start: 12-22-2024 End: 12-22-2024 Patient encounter procedure 12/22/2024 1:00 PM EDT Appointment Radiation Oncology [address] [facility] [place] [address] lung- pulse ox during tx Radiation Oncology Comment on above: lung- pulse ox during tx Start: 12-21-2024 End: 12-21-2024 Patient encounter procedure 12/21/2024 8:15 AM EDT Appointment Radiation Oncology [address] [facility] [place] [address] lung- pulse ox during tx inpatient still? [...] Start: 12-18-2024 End: 12-18-2024 Patient encounter procedure [facility] Comment on above: lab follow up and chemotx Carbo/Taxol NEW START LUNG- LILIAM PT NEW START LUNG - MOR NINGS - LILIAM PT, med onc at 1 Start: 12-08-2024 End: 12-08-2024 Patient encounter procedure 12/08/2024 10:30 AM EDT Office Visit Radiation Oncology [address] [facility] [place] [address] Ezra Lizama MD [address] [facility] [place] [address] SIM Lung, IV contrast,esoph contrast, 4DCT, consent signed Radiation Oncology Comment on above: SIM Lung, IV contrast,esoph contrast, 4D CT, consent signed Start: 12-08-2024 End: 12-08-2024 Nursing evaluation of patient and report 12/08/2024 10:00 AM EDT Nurse Visit Radiation Oncology [address] [facility] [place] [address] Mae, Nurse Radt [address] [facility] [place] [address] IV start Radiation Oncology Comment on above: IV start Start: 12-07-2024 End: 12-07-2025 Device Interrogation Device Interrogation Cardiac Services Routine Pacemaker Expected: 12/07/2024, Expires: 12/07/2025 [facility] Work Phone: Comment on above: Expected: 12/07/2024, Expires: Start: 12-07-2024 End: 12-07-2024 Clinical Support [facility] Comment on above: CT Head Start: 12-04-2024 End: 12-27-2025 CT Head WO contrast CT BRAIN WO IVCON Radiology Routine Malignant neoplasm of lower lobe of right lung (HCC) Expected: 12/04/2024 (Approximate), Expires: 12/27/2025 [facility] Work Phone: Comment on above: Expected: 12/04/2024 (Approximate), Expi res: 12/27/2025 Start: 12-01-2024 End: 03-02-2025 CBC W Auto Differential panel - Blood COMPLETE BLOOD COUNT AND DIFFERENTIAL Lab Routine Malignant neoplasm of lower lobe of right lung (HCC) Expected: 12/01/2024 (Approximate), Expires: 03/02/2025 [facility] Work Phone: Comment on above: Expected: 12/01/2024 (Approximate), Expi res: 03/02/2025 Start: 12-01-2024 End: 03-02-2025 Cobalamin (Vitamin B12) [Mass/volume] in Serum or Plasma VITAMIN B12 Lab Routine Malignant neoplasm of lower lobe of right lung (HCC) Expected: 12/01/2024 (Approximate), Expires: 03/02/2025 [facility] Comment on above: Expected: 12/01/2024 (Approximate), Expi res: 03/02/2025 Start: 12-01-2024 End: 03-02-2025 Comprehensive metabolic 2000 panel - Serum or Plasma COMPREHENSIVE METABOLIC PANEL Lab Routine Malignant neoplasm of lower lobe of right lung (HCC) Expected: 12/01/2024 (Approximate), Expires: 03/02/2025 [facility] Comment on above: Expected: 12/01/2024 (Approximate), Expi res: 03/02/2025 Start: 12-01-2024 End: 03-02-2025 Ferritin [Mass/volume] in Serum or Plasma FERRITIN Lab Routine Malignant neoplasm of lower lobe of right lung (HCC) Expected: 12/01/2024 (Approximate), Expires: 03/02/2025 [facility] Comment on above: Expected: 12/01/2024 (Approximate), Expi res: 03/02/2025 Start: 12-01-2024 End: 03-02-2025 Folate [Mass/volume] in Serum or Plasma FOLATE, SERUM Lab Routine Malignant neoplasm of lower lobe of right lung (HCC) Expected: 12/01/2024 (Approximate), Expires: 03/02/2025 [facility] Comment on above: Expected: 12/01/2024 (Approximate), Expi res: 03/02/2025 Start: 12-01-2024 End: 03-02-2025 [facility] Lab Routine Malignant neoplasm of lower lobe of right lung (HCC) Expected: 12/01/2024, Expires: 03/02/2025 [facility] Comment on above: Expected: 12/01/2024, Expires: Start: 12-01-2024 End: 03-02-2025 Iron and Iron binding capacity panel - Serum or Plasma IRON AND TIBC Lab Routine Malignant neoplasm of lower lobe of right lung (HCC) Expected: 12/01/2024 (Approximate), Expires: 03/02/2025 [facility] Comment on above: Expected: 12/01/2024 (Approximate), Expi res: 03/02/2025 Start: 11-30-2024 End: 11-30-2024 Follow-up encounter 11/30/2024 3:30 PM EDT [facility] Nutrition Therapy [address] [place] [address] Bee Pabon, JAMIL [address] [place] [address] Follow up lung/ severe weight loss Nutrition Therapy Comment on above: Follow up lung/ severe weight loss Start: 11-30-2024 End: 11-30-2024 Patient encounter procedure 11/30/2024 9:00 AM EDT Office Visit Radiation Oncology [address] [place] [address] [place] [address] Ezra Lizama MD [address] [facility] [place] [address] SIM Lung, IV contrast,esoph contrast, 4DCT, consent signed Radiation Oncology Comment on above: SIM Lung, IV contrast,esoph contrast, 4D CT, consent signed Start: 11-30-2024 End: 11-30-2024 Nursing evaluation of patient and report 11/30/2024 8:45 AM EDT Nurse Visit Radiation Oncology [address] [facility] [place] [address] Mae, Nurse Radt [address] [place] [address] [place] [address] IV Nurse visit Radiation Oncology Comment on above: IV Nurse visit Start: 11-27-2024 End: 11-27-2024 Nursing evaluation of patient and report 11/27/2024 9:00 AM EDT Nurse Visit Hematology/Oncology [address] [place] [address] [place] [address] Blanquita Hargrove, RN [address] [place] [address] [place] [address] weekly carbo taxol Hematology/Oncol ogy Comment on above: weekly carbo taxol Start: 11-23-2024 End: 11-23-2024 Patient encounter procedure 11/23/2024 3:00 PM EDT Office Visit Radiation Oncology [address] [place] [address] [place] [address] Ezra Lizama MD [address] [facility] [place] [address] SIM Lung, IV contrast,esoph contrast, 4DCT, consent signed Radiation Oncology Comment on above: SIM Lung, IV contrast,esoph contrast, 4D CT, consent signed Start: 11-23-2024 End: 11-23-2024 Nursing evaluation of patient and report 11/23/2024 2:45 PM EDT Nurse Visit Radiation Oncology [address] [place] [address] [place] [address] Mae, Nurse Radt [address] [place] [address] [place] [address] IV Nurse visit Radiation Oncology Comment on above: IV Nurse visit Start: 11-22-2024 End: 11-22-2025 Device Interrogation Device Interrogation Cardiac Services Routine Pacemaker- [place] Expected: 11/22/2024, Expires: 11/22/2025 [facility] Work Phone: Comment on above: Expected: 11/22/2024, Expires: Start: 11-22-2024 End: 11-22-2024 Patient encounter procedure 11/22/2024 1:00 PM EDT Office Visit [facility] [address] [place] [address] Shola Milan APRN-ABBEY [address] [place], [place] [id number] [facility] Start: 11-20-2024 End: 11-20-2024 Admission to same day surgery center 11/20/2024 11:30 AM EDT - 11/20/2024 1:30 PM EDT Surgery Admitting [address] [id number] Alexandre Robertson MD [address] [place] [address] BRONCHOSCOPY FLEXIBLE ADULT Admitting Comment on above: BRONCHOSCOPY FLEXIBLE ADULT Start: 11-20-2024 Subsequent hospital visit by physician 11/20/2024 11:30 AM EDT Hospital Encounter Admitting [address] [address] Alexandre Robertson MD [address] [place] [id number] 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] Admitting Comment on above: 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] Start: 11-20-2024 End: 11-20-2024 Brnchsc incl fluor gdnce dx w/cell washg spx PULM LAB H23 Start: 11-17-2024 End: 11-17-2024 Follow-up encounter 11/17/2024 2:00 PM EDT Visit (SP) Office Hematology/Oncology [address] [place] [address] [place] [address] Rasheed Perez MD [address] [facility] [place] [address] 2 week follow up Hematology/Oncol ogy Comment on above: 2 week follow up Start: 11-17-2024 End: 11-17-2024 Patient encounter procedure 11/17/2024 1:00 PM EDT Office Visit Radiation Oncology [address] [facility] [place] [address] Ezra Lizama MD [address] [facility] [place] [address] Consult dx Lung cancer Radiation Oncology Comment on above: Consult dx Lung cancer Start: 11-15-2024 End: 11-15-2024 ambulatory 11/15/2024 12:10 PM EDT Procedure Cardiology [address] [address] PreOp Testing Cardiology Comment on above: PreOp Testing Start: 11-15-2024 End: 11-15-2024 Patient encounter procedure 11/15/2024 11:00 AM EDT Office Visit Pulmonary Medicine [address] [address] Alexandre Robertson MD [address] [place], [place] [id number] New Consultation Pulmonary Medicine Comment on above: New Consultation Start: 11-10-2024 End: 02-09-2025 CBC W Auto Differential panel - Blood COMPLETE BLOOD COUNT AND DIFFERENTIAL Lab Routine Malignant neoplasm of lower lobe of right lung (HCC) Expected: 11/10/2024 (Approximate), Expires: 02/09/2025 [facility] Comment on above: Expected: 11/10/2024 (Approximate), Expi res: 02/09/2025 Start: 11-10-2024 End: 02-09-2025 Cobalamin (Vitamin B12) [Mass/volume] in Serum or Plasma VITAMIN B12 Lab Routine Malignant neoplasm of lower lobe of right lung (HCC) Expected: 11/10/2024 (Approximate), Expires: 02/09/2025 [facility] Comment on above: Expected: 11/10/2024 (Approximate), Expi res: 02/09/2025 Start: 11-10-2024 End: 02-09-2025 Comprehensive metabolic 2000 panel - Serum or Plasma COMPREHENSIVE METABOLIC PANEL Lab Routine Malignant neoplasm of lower lobe of right lung (HCC) Expected: 11/10/2024 (Approximate), Expires: 02/09/2025 [facility] Comment on above: Expected: 11/10/2024 (Approximate), Expi res: 02/09/2025 Start: 11-10-2024 End: 02-09-2025 Ferritin [Mass/volume] in Serum or Plasma FERRITIN Lab Routine Malignant neoplasm of lower lobe of right lung (HCC) Expected: 11/10/2024 (Approximate), Expires: 02/09/2025 [facility] Comment on above: Expected: 11/10/2024 (Approximate), Expi res: 02/09/2025 Start: 11-10-2024 End: 02-09-2025 Folate [Mass/volume] in Serum or Plasma FOLATE, SERUM Lab Routine Malignant neoplasm of lower lobe of right lung (HCC) Expected: 11/10/2024 (Approximate), Expires: 02/09/2025 [facility] Comment on above: Expected: 11/10/2024 (Approximate), Expi res: 02/09/2025 Start: 11-10-2024 End: 02-09-2025 Iron and Iron binding capacity panel - Serum or Plasma IRON AND TIBC Lab Routine Malignant neoplasm of lower lobe of right lung (HCC) Expected: 11/10/2024 (Approximate), Expires: 02/09/2025 [facility] Comment on above: Expected: 11/10/2024 (Approximate), Expi res: 02/09/2025 Start: 11-10-2024 End: 11-26-2025 MR Brain WO and W contrast IV MRI BRAIN WO/W IVCON Radiology Routine Malignant neoplasm of lower lobe of right lung (HCC) Expected: 11/10/2024, Expires: 11/26/2025 [facility] Work Phone: Comment on above: Expected: 11/10/2024, Expires: Start: 11-10-2024 End: 11-10-2024 Patient encounter procedure 11/10/2024 9:00 AM EDT Office Visit Radiation Oncology [address] [facility] [place] [address] Ezra Lizama MD [address] [facility] [place] [address] Consult dx Lung cancer Radiation Oncology Comment on above: Consult dx Lung cancer Start: 11-10-2024 End: 11-10-2024 Follow-up encounter 11/10/2024 8:30 AM EDT Visit (SP) Office Hematology/Oncology [address] [place] [address] Rasheed Perez MD [address] [place] [address] 2 week follow up Hematology/Oncol ogy Comment on above: 2 week follow up Start: 11-08-2024 End: 11-08-2024 Patient encounter procedure 11/08/2024 2:30 PM EDT Office Visit [facility] [address] [place] [address] Maritza Best MD [address] [place] [address] [facility] Start: 10-30-2024 End: 10-30-2024 Nutrition therapy 10/30/2024 2:30 PM EDT Education Nutrition Therapy [address] [place] [address] Bee Pabon, JAMIL [address] [place] [address] Nutri phone call ref by Dr Perez Nutrition Therapy Comment on above: Nutri phone call ref by Dr Perez Start: 10-27-2024 End: 10-27-2024 ambulatory 10/27/2024 9:00 AM EDT Visit (SP) Office Hematology/Oncology [address] [place] [address] Rasheed Perez MD [address] [place] [address] [place] [address] 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 Start: 10-01-2023 Diabetes Screening Diabetes Screening [facility] Start: 2021 RSV Vaccine (1 - Risk 60-74 years 1-dose series) RSV Vaccine (1 - Risk 60-74 years 1-dose series) [facility] Start: 11-03-2011 Administration of varicella zoster vaccine Zoster (Shingles) Vaccine (1 of 2) [facility] Start: 11-03-2011 Pneumococcal Vaccine: 50+ (1 of 1 - PCV) Pneumococcal Vaccine: 50+ (1 of 1 - PCV) [facility] Start: 11-03-2011 Shingrix Vaccine (1 of 2) Shingrix Vaccine (1 of 2) [facility] Start: 2006 Prostate specific antigen measurement Prostate Cancer Screening Discussion [facility] Start: 2006 Screening for malignant neoplasm of colon [facility] Start: 1980 Administration of varicella zoster vaccine Zoster (Shingles) Vaccine (1 of 2) [facility] Start: 1980 DTaP,Tdap and Td Vaccines (1 - Tdap) DTaP,Tdap and Td Vaccines (1 - Tdap) [facility] Start: 1980 Pneumococcal Vaccine: 50+ (1 of 2 - PCV) Pneumococcal Vaccine: 50+ (1 of 2 - PCV) [facility] Start: 1980 Shingrix Vaccine (1 of 2) Shingrix Vaccine (1 of 2) [facility] Start: 1980 Urine microalbumin profile DTaP,Tdap,Td Vaccine (1 - Tdap) [facility] Start: 11-03-1979 Adult BMI Follow Up Plan Adult BMI Follow Up Plan [facility] Start: 11-03-1979 Adult BMI Screening Adult BMI Screening [facility] Start: 11-03-1979 Anxiety Screening Anxiety Screening [facility] Start: 11-03-1979 Depression Screening Depression Screening [facility] Start: 11-03-1979 Hepatitis C screening Hepatitis C Screening [facility] Start: 11-03-1979 HIV screening HIV Screening [facility] Start: 1973 Depression Screening Depression Screening [facility] Start: 1973 Tobacco Screening Tobacco Screening [facility] Start: 1961 Screening for malignant neoplasm of colon [facility] BLOOD CULTURE 1 BLOOD CULTURE 1 Lab Routine 10/06/2024 6:12 PM EDT [facility] Work Phone: BLOOD CULTURE 2 BLOOD CULTURE 2 Lab Routine 10/06/2024 6:20 PM EDT [facility] CARDIAC IMPLANTABLE DEVICE CHECK CARDIAC IMPLANTABLE DEVICE CHECK PACEART Routine 11/20/2024 10:41 AM EDT [facility] Work Phone: CBC W Auto Different ial panel - Blood COMPLETE BLOOD COUNT AND DIFFERENTIAL Lab Routine Malignant neoplasm of lower lobe of right lung (HCC) 01/24/2025 1:29 PM EDT [facility] Work Phone: CT Guidance for radi ation treatment of Unspecified body region CT SIM PLANNING RADIATION ONCOLOGY Radiology Routine Malignant neoplasm of lower lobe of right lung (HCC) Ordered: 12/04/2024 [facility] Work Phone: Comment on above: Ordered: 12/04/2024 Patient Education [facility] Work Phone: Patient referral [facility] Work Phone: End: 12-23-2025 SPIROMETRY BASELINE ONLY SPIROMETRY BASELINE ONLY PFT Routine Malignant neoplasm of lower lobe of right lung (HCC) 1 Occurrences starting 11/23/2024 until 12/23/2025 [facility] Work Phone: Comment on above: 1 Occurrences starting 11/23/2024 until 12/23/2025 XR Chest 2 Views [facility] Immunizations Immunization Date Immunization Notes Care Provider Pilar alan 03-31-2024 Seasonal, trivalent, recombinant, injectable influenza vaccine, preservative free Shola Bjorn [employer]ICAL EXAMINER-DEPARTMENT OPERATIONS MANAGER Work Phone: [facility] 03-31-2024 influenza virus vaccine, unspecified formulation Maritza Best MD Work Phone: [facility] 04-21-2023 influenza virus vaccine, unspecified formulation VICTORIA SANDRA [facility] 04-21-2023 Seasonal, quadrivalent, recombinant, injectable influenza vaccine, preservative free Shola Bjorn [employer] MEDICAL EXAMINER-DEPARTMENT OPERATIONS MANAGER Work Phone: [facility] 03-16-2022 influenza virus vaccine, unspecified formulation VICTORIA SANDRA [facility] 03-16-2022 Seasonal, quadrivalent, recombinant, injectable influenza vaccine, preservative free Shola Bjorn [employer] MEDICAL EXAMINER-DEPARTMENT OPERATIONS MANAGER Work Phone: [facility] 04-07-2021 influenza virus vaccine, unspecified formulation VICTORIA SANDRA [facility] 04-07-2021 influenza, seasonal, injectable Shola Bjorn [employer] MEDICAL EXAMINER-DEPARTMENT OPERATIONS MANAGER Work Phone: [facility] 09-25-2020 SARS-CoV-2 (COVID-19 ) mRNA-[id number] vaccine VICTORIA SANDRA [facility] Comment on above: Result Comment: [id number]: 51 08-28-2020 SARS-CoV-2 (COVID-19 ) mRNA-1273 vaccine VICTORIA SANDRA [facility] 06-14-2020 SARS-CoV-2 (COVID-19 ) [id number] vaccine VICTORIA FLORES [facility] Comment on above: Result Comment: pt leigha mac he is fully vaccinated 04-02-2020 influenza virus vaccine, unspecified formulation VICTORIA FLORES [facility] 04-02-2020 Influenza, injectabl e, Madin [place] Canine Kidney, quadrivalent with preservative Shola Torret [employer] MEDICAL EXAMINER-DEPARTMENT OPERATIONS MANAGER Work Phone: [employer] 03-14-2017 influenza virus vaccine, unspecified formulation VICTORIA FLORES [facility] Payers Date Payer Category Payer Private Health Insurance [id number] 2020 Blue Cross Blue Shield [id number] 2013 Blue Cross Blue [facility] Man[facility] - Other ANTH [id number] [id number] 1961 Unknown [id number] ..840.1.727779.3.579. 2.593 1961 Unknown [id number] 840.1.052684.3.579. 2.593 1961 Unknown [id number] 2.16.840.1.704374.3.579. 2.593 1961 Unknown [id number] 2.16.840.1.124475.3.579. 2.727 1961 Unknown [id number] 2.16.840.1.602778.3.579. 2.72 1961 Unknown [id number] 2.16.840.1.678824.3.579. 2.727 1961 Unknown [id number] 2.16.840.1.986923.3.579. 2.72 1961 Unknown [id number] 2.16.840.1.178582.3.579. 2.727 1961 Unknown [id number] 2.16.840.1.592349.3.579. 2.72 1961 Unknown [id number] 2.16.840.1.069318.3.579. 2.72 1961 Unknown [id number] 2.16.840.1.147352.3.579. 2.72 1961 Unknown [id number] 2.16.840.1.511729.3.579. 2.727 1961 Unknown [id number] 2.16.840.1.973334.3.579. 2.72 1961 Unknown [id number] 2.16.840.1.278279.3.579. 2.72 1961 Unknown [id number] 2.16.840.1.689460.3.579. 2.1286 1961 Unknown [id number] 2.16.840.1.003645.3.579. 2.128 1961 Unknown [id number] 2.16.840.1.386657.3.579. 2.1282 Unknown [id number] 2.16.840.1.521548.3.579. 2.1285 1961 Unknown [id number] 2.16.840.1.352927.3.579. 2.1285 1961 Unknown [id number] 2.16.840.1.991925.3.579. 2.1285 1961 Unknown [id number] 2.16.840.1.535041.3.579. 2.1285 1961 Unknown [id number] 2.16.840.1.422057.3.579. 2.1285 1961 Unknown [id number] 2.16.840.1.155607.3.579. 2.1285 1961 Unknown [id number] 2.16.840.1.202967.3.579. 2.1285 1961 Unknown [id number] 2.16.840.1.344153.3.579. 2.1285 1961 Unknown [id number] 2.16.840.1.322385.3.579. 2.1285 1961 Unknown [id number] 2.16.840.1.435009.3.579. 2.1285 1961 Unknown [id number] 2.16.840.1.129839.3.579. 2.1285 1961 Unknown [id number] 2.16.840.1.056686.3.579. 2.1285 1961 Unknown [id number] 2.16.840.1.667393.3.579. 2.1285 1961 Unknown [id number] 2.16.840.1.403378.3.579. 2.1285 1961 Unknown [id number] 2.16.840.1.008952.3.579. 2.1258 1961 Unknown [id number] 2.16.840.1.966129.3.579. 2.1259 1961 Unknown [id number] 2.16.840.1.650772.3.579. 2.1259 1961 Unknown [id number] 2.16.840.1.764272.3.579. 2.1259 1961 Unknown [id number] 2.16.840.1.626824.3.579. 2.1259 1961 Unknown [id number] 2.16.840.1.685334.3.579. 2.1259 1959 Unknown [id number] Social History Date Type Detail Facility Start: 06-29-2023 End: 11-08-2024 Tobacco smoking status Ex-smoker (finding) [facility] Start: 05-15-2012 End: 08-26-2022 Tobacco smoking status Never [facility] Start: 07-25-2020 End: 10-25-2024 Sex Assigned At Male [facility] Start: 01-17-2015 End: 08-31-2024 Sex Male (finding) [facility] Start: 1960 Sex Assigned At Male [facility] Tobacco smoking stat NHIS Tobacco smoking consumption unknown [facility] Start: 1960 Sex assigned at Not on file N [facility] Start: 06-14-2016 End: 01-04-2017 History of tobacco use Current smoker [facility] Start: 06-14-2016 End: 01-04-2017 History of tobacco use Cigarette Smoker [facility] History of tobacco use Passive smoker [facility] Start: 10-25-2024 End: 11-08-2024 Tobacco use and exposure Smokeless tobacco non-user [facility] Start: 10-25-2024 End: 02-09-2025 Alcoholic beverage intake Ex-drinker (finding) [facility] Start: 07-25-2020 End: 10-25-2024 History of Social function [facility] Start: 03-31-2017 End: 11-08-2024 Alcoholic beverage intake Current drinker of alcohol (finding) [facility] Has the electric, [employer], [employer], or water company threatened to shut off services in your home in past 12Mo No [facility] How often to you hav e a drink containing alcohol? Monthly or less [facility] How many standard drinks containing alcohol do you have on a typical day? 1 or 2 [facility] How often do you hav e 6 or more drinks on 1 occasion? Never [facility] Start: 11-17-2024 Alcohol Comment rarely [facility] Start: 01-04-2025 End: 01-17-2025 SDOH Follow up SDOH Follow up [facility] Work Phone: Sexual Orientation [facility] Medical Equipment Procedure Code Equipment Code Equipment Origin al Text Equipment Identifier Dates Lead Pcng 52cm A tr Vntrc Ingevity+ Xtd Rtrct Fx Is-1 Cnct - [id number] - [id number] ()[id number], [id number][facility] FDA Start: 11-09-2024 Lead Pcng 59cm A tr Vntrc Ingevity+ Xtd Rtrct Fx Is-1 Cnct - [id number] - [id number] ()[id number], [id number][facility] FDA Start: 11-09-2024 Cardiac pacemaker, device (physical object) ([id number]) Pacemaker .75cm Acld Mri El 2 Chmbr Is-1 Cnct Avinash Mntr 4.45 - [id number] - [id number] ()[id number] , [id number][facility] FDA Start: 11-09-2024 [id number] [id number][facility] Start: 10-12-2024 [id number] [id number][facility] Start: 10-12-2024 [id number] [id number][facility] Start : 11-09-2024 Goals Date Patient Goal Desired Activity /State Personal health goal Comment on above: Formatting of this n ote might be different from the original. Evaluation of progress towards goal: Pt plans to return home self care with support. Functional Status Date Assessment Result Facility 01-06-2025 Functional status Patient at Baseline [facility] Work Phone: 01-02-2025 Functional status Patient at Baseline [facility] Work Phone: 06-29-2023 Functional Status N/A [facility]k Mental Status Date Assessment Result Facility 01-06-2025 Cognitive function Cognitive Sta tus Patient at Baseline [facility] Work Phone: 01-02-2025 Cognitive function Cognitive Sta tus Patient at Baseline [facility] Work Phone: Clinical Notes 06-29-2023 to 03-29-2025 Telephone Encounter - Rosey Potter - 03/29/2025 3:42 PM EDTTelephone Encounter - Rosey Potter - 03/29/2025 3:42 PM EDTTelephone Encounter - Rosey Potter - 03/28/2025 11:45 AM EDTPatient Instructions Note Date & Type Note Facility 03-29-2025 Telephone encounter Note called back and confirmed his PT's out; starting 04/02/25. [facility] 03-29-2025 Miscellaneous Notes called back and confirmed his PT's out; starting 04/02/25. had contacted noting he has a chest cold and feeling discomfort and weakness all over; she cx his PT for 03/29/25. I reminded and she said he'll hopefully be able to be at his 04/02/25 PT. documented in this encounter [facility] 03-28-2025 Note [facility] 03-28-2025 Telephone encounter Note had contacted noting he has a chest cold and feeling discomfort and weakness all over; she cx his PT for 03/29/25. I reminded and she said he'll hopefully be able to be at his 04/02/25 PT. [facility] 03-26-2025 Telephone encounter Note called noting he is not feeling well and weak getting dressed; cx PT today. [facility] 03-26-2025 Miscellaneous Notes called noting he is not feeling well and weak getting dressed; cx PT today. documented in this encounter [facility] 03-23-2025 Note [facility] 03-22-2025 History of Present illness Narrative Images from the original note were not included. Physical Therapy Treatment Visit Patient Name: Jatin Raymundo Today's Date: 03/22/2025 Encounter Diagnoses Name Primary? Weakness Yes Adverse effect of antineoplastic and immunosuppressive drugs, initial encounter Other fatigue Visit number: 6 Timed Code Treatment Minutes: 58 minutes Total Treatment Time: 65 minutes Time In: 12:20 PM Time Out: 1:32 PM History: Pt states in October of this year he was diagnosed lung CA. Initial treatment was put off due other medical complications and hospitalizations. States started chemo treatments in December. States also had 26 radiation treatments. States with all that has happened pt has become more weak and has lost a lot of strength. Pt states was independent prior to CA. Was responsible for yard work and was driving. Has been retired. Three steps to enter the home with one handrail. Lives in 2 [place] home; has moved bed downstairs due to not being able to tolerate climbing one flight of stairs. Pt states he has lost approx 65 pounds since start of sickness. Precautions: PACEMAKER Subjective: Pt states legs were sore following last session but tolerable. Pain: 0/10 Objective: PT Evaluation (03/07/2025) Functional Mobility: Gait: TUG without device: 41.29 seconds Strength: 8# biceps curls in 30 seconds: right 6 reps; left 5 reps; bilateral shoulders 4/5, elbows 4 to 4+/5; bilateral hips 4-/5, quads 4/5 Functional: Five Time Sit to Stand: 89.75 seconds with arms across chest Treatment: Manual Therapy: Passive ROM, Joint mobilization, Soft Tissue Mobilization, Myofascial Release, Muscle Energy Technique, Neural Mobilization, Myofascial Cupping, Dry Needling, IASTM, and Scar mobilization as needed. Therapeutic Exercise: (30 minutes supervised) Pt performed and instructed in ther ex to improve LE and UE strength for improved tolerance to daily function, endurance (Nustep 8 mins unsupervised) Therapeutic Activity: Exercises to improve dynamic activities, functional tasks, functional mobility to return to prior activity level as needed. Neuromuscular re-education: (28 minutes supervised) Static and dynamic stability performed with CGA during all exercises Modalities: Heat, Ice, Electrical Stimulation, Ultrasound, Cervical Mechanical Traction, Lumbar Mechanical Traction, Iontophoresis, and Fluidotherapy as needed. Assessment: Pt has completed 6 PT sessions for general weakness and difficulty walking. Pt instructed to increase to 15 reps with exercises at home. Pt continues to require frequent sitting rest breaks due to fatigue. Will continue. Outcome Measure: Lower Extremity Functional Scale (LEFS): 23/80 Rehab Diagnosis: general weakness, difficulty walking Short Term Goal: To be met in 2 weeks Goal 1: Pt to be instructed in home exercise program. Custodial Goals: To be met in 10 weeks Goal 1: Pt to report independence and compliance with home program. Goal 2: Pt to complete TUG in less than 20.0 seconds indicating improved gait and mobility. Goal 3: Pt to complete Five Sit to Stands in less than 40.0 seconds with hands across chest indicating improved functional strength of LE's. Goal 4: Pt to score no less than 50/80 on LEFS indicating improved QOL. Goal 5: Pt to complete 10 reps of biceps curls in 30 seconds with bilateral UE indicating improved functional strength of UE. Goal 6: Pt to achieve 4+/5 strength bilateral shoulders to assist with reaching and lifting. Pt will benefit from skilled PT for 2x/week from 03/07/2025 to 06/05/2025 to address the above impairments. I hereby deem this POC medically necessary. Please sign below. Date: documented in this encounter [facility] 03-20-2025 Note [facility] 03-20-2025 Note [facility] 03-14-2025 History of Present illness Narrative I agree with the findings in the scanned document. documented [facility] this encounter [facility] History of Present illness Narrative Images from the original note were not included. Physical Therapy Treatment Visit Patient Name: Jatin Raymundo Today's Date: 03/09/2025 Encounter Diagnoses Name Primary? Weakness Yes Adverse effect of antineoplastic and immunosuppressive drugs, initial encounter Other fatigue Visit number: 2 Timed Code Treatment Minutes: 44 minutes Total Treatment Time: 44 minutes Time In: 1330 Time Out: 1418 History: Pt states in October of this year he was diagnosed lung CA. Initial treatment was put off due other medical complications and hospitalizations. States started chemo treatments in December. States also had 26 radiation treatments. States with all that has happened pt has become more weak and has lost a lot of strength. Pt states was independent prior to CA. Was responsible for yard work and was driving. Has been retired. Three steps to enter the home with one handrail. Lives in 2 story home; has moved bed downstairs due to not being able to tolerate climbing one flight of stairs. Pt states he has lost approx 65 pounds since start of sickness. Precautions: PACEMAKER Subjective: Was a little tired after initial eval. Pain: 0/10 Objective: PT Evaluation (03/07/2025) Functional Mobility: Gait: TUG without device: 41.29 seconds Strength: 8# biceps curls in 30 seconds: right 6 reps; left 5 reps; bilateral shoulders 4/5, elbows 4 to 4+/5; bilateral hips 4-/5, quads 4/5 Functional: Five Time Sit to Stand: 89.75 seconds with arms across chest Treatment: Education: HEP education with demonstration, Educated on Eval Findings and POC Manual Therapy: Passive ROM, Joint mobilization, Soft Tissue Mobilization, Myofascial Release, Muscle Energy Technique, Neural Mobilization, Myofascial Cupping, Dry Needling, IASTM, and Scar mobilization as needed. Therapeutic Exercise: (44 minutes) Strength, Endurance, Flexibility, ROM, HEP, Neural Mobilization, Power, and Core Stability as needed. Pt performed and instructed in home program this date; written instructions and pictures issued with good pt understanding. Therapeutic Activity: Exercises to improve dynamic activities, functional tasks, functional mobility to return to prior activity level as needed. Neuromuscular re-education: Balance Training, Muscle Facilitation, Dynamic Stability, Core Stabilization, and Blood Flow Restriction Training (BFRT) as needed. Modalities: Heat, Ice, Electrical Stimulation, Ultrasound, Cervical Mechanical Traction, Lumbar Mechanical Traction, Iontophoresis, and Fluidotherapy as needed. Assessment: Pt has completed 2 PT sessions for general weakness and difficulty walking. Progressed exercises this date to increase overall functional strength and endurance. Pt given sitting rest breaks between exercises. Will continue to progress as tolerates. Outcome Measure: Lower Extremity Functional Scale (LEFS): 2380 Rehab Diagnosis: general weakness, difficulty walking Short Term Goal: To be met in 2 weeks Goal 1: Pt to be instructed in home exercise program. Custodial Goals: To be met in 10 weeks Goal 1: Pt to report independence and compliance with home program. Goal 2: Pt to complete TUG in less than 20.0 seconds indicating improved gait and mobility. Goal 3: Pt to complete Five Sit to Stands in less than 40.0 seconds with hands across chest indicating improved functional strength of LE's. Goal 4: Pt to score no less than 50/80 on LEFS indicating improved QOL. Goal 5: Pt to complete 10 reps of biceps curls in 30 seconds with bilateral UE indicating improved functional strength of UE. Goal 6: Pt to achieve 4+/5 strength bilateral shoulders to assist with reaching and lifting. Pt will benefit from skilled PT for 2x/week from 03/07/2025 to 06/05/2025 to address the above impairments. I hereby deem this POC medically necessary. Please sign below. Date: documented in this encounter [facility] 03-07-2025 History of Present illness Narrative Images from the original note were not included. Physical Therapy Evaluation Visit Patient Name: Jatin Raymundo Today's Date: 03/07/2025 Encounter Diagnoses Name Primary? Weakness Yes Adverse effect of antineoplastic and immunosuppressive drugs, initial encounter Other fatigue Visit number: 1 Timed Code Treatment Minutes: 60 minutes Total Treatment Time: 60 minutes Time In: 1500 Time Out: 1602 History: Pt states in October of this year he was diagnosed lung CA. Initial treatment was put off due other medical complications and hospitalizations. States started chemo treatments in December. States also had 26 radiation treatments. States with all that has happened pt has become more weak and has lost a lot of strength. Pt states was independent prior to CA. Was responsible for yard work and was driving. Has been retired. Three steps to enter the home with one handrail. Lives in 2 story home; has moved bed downstairs due to not being able to tolerate climbing one flight of stairs. Pt states he has lost approx 65 pounds since start of sickness. Precautions: PACEMAKER Subjective: denies pain Pain: 0/10 Objective: PT Evaluation (03/07/2025) Functional Mobility: Gait: TUG without device: 41.29 seconds Strength: 8# biceps curls in 30 seconds: right 6 reps; left 5 reps; bilateral shoulders 4/5, elbows 4 to 4+/5; bilateral hips 4-/5, quads 4/5 Functional: Five Time Sit to Stand: 89.75 seconds with arms across chest Treatment: Education: HEP education with demonstration, Educated on Eval Findings and POC Manual Therapy: Passive ROM, Joint mobilization, Soft Tissue Mobilization, Myofascial Release, Muscle Energy Technique, Neural Mobilization, Myofascial Cupping, Dry Needling, IASTM, and Scar mobilization as needed. Therapeutic Exercise: (24 minutes) Strength, Endurance, Flexibility, ROM, HEP, Neural Mobilization, Power, and Core Stability as needed. Pt performed and instructed in home program this date; written instructions and pictures issued with good pt understanding. Therapeutic Activity: Exercises to improve dynamic activities, functional tasks, functional mobility to return to prior activity level as needed. Neuromuscular re-education: Balance Training, Muscle Facilitation, Dynamic Stability, Core Stabilization, and Blood Flow Restriction Training (BFRT) as needed. Modalities: Heat, Ice, Electrical Stimulation, Ultrasound, Cervical Mechanical Traction, Lumbar Mechanical Traction, Iontophoresis, and Fluidotherapy as needed. Assessment: Pt is 64 y/o male with general weakness and difficulty walking. Pt presents with 4WW. Decrease bilateral LE and UE strength noted with MMT. Pt instructed in home program and will benefit from further PT. Outcome Measure: Lower Extremity Functional Scale (LEFS): 23 Rehab Diagnosis: general weakness, difficulty walking Short Term Goal: To be met in 2 weeks Goal 1: Pt to be instructed in home exercise program. Custodial Goals: To be met in 10 weeks Goal 1: Pt to report independence and compliance with home program. Goal 2: Pt to complete TUG in less than 20.0 seconds indicating improved gait and mobility. Goal 3: Pt to complete Five Sit to Stands in less than 40.0 seconds with hands across chest indicating improved functional strength of LE's. Goal 4: Pt to score no less than 50/80 on LEFS indicating improved QOL. Goal 5: Pt to complete 10 reps of biceps curls in 30 seconds with bilateral UE indicating improved functional strength of UE. Goal 6: Pt to achieve 4+/5 strength bilateral shoulders to assist with reaching and lifting. Pt will benefit from skilled PT for 2x/week from 03/07/2025 to 06/05/2025 to address the above impairments. I hereby deem this POC medically necessary. Please sign below. Date: documented in this encounter [facility] 02-27-2025 Telephone encounter Note Yvette, cardiology nurse with Dr. Best's office, notified Jatin completed his radiation treatments on 02/22/[address] Best to make recommendations for pacemaker device checks post radiation completion. Shavon is thankful for our call. Cassia Cantu RN [facility] 02-27-2025 Miscellaneous Notes Yvette, cardiology nurse with Dr. Best's office, notified Jatin completed his radiation treatments on 02/22/[address] Best to make recommendations for pacemaker device checks post radiation completion. Shavon is thankful for our call. Cassia Cantu RN documented in this encounter [facility] 02-27-2025 Miscellaneous Notes Call from Nereyda at [facility] [place]. They wanted to let us know that patient has completed radiation therapy to the chest. Dr. Lizama, radiation oncology, is deferring need for any further device checks to our office. They weren't sure if he needed a check post radiation? Message to SER. Would recommend device check post radiation completion next couple weeks and can be the [place] office. Patient lives in [place]. Does not need a BANQUET DIRECTOR nurse visit though Patient has upcoming appointment with SER on 05/30/25. Will have scheduling (Mahin) work on a date closer to 2 week as recommended. 03/14/25 device check scheduled. [facility] Telephone encounter Note Call from Nereyda at [facility]. They wanted to let us know that patient has completed radiation therapy to the chest. Dr. Lizama, radiation oncology, is deferring need for any further device checks to our office. They weren't sure if he needed a check post radiation? Message to SER. [facility] 02-27-2025 Telephone encounter Note Would recommend device check post radiation completion next couple weeks and can be the [place] office. Patient lives in [place]. Does not need a BANQUET DIRECTOR nurse visit though [facility] 02-27-2025 Telephone encounter Note Patient has upcoming appointment with SER on 05/30/25. Will have scheduling (Mahin) work on a date closer to 2 week as recommended. [facility] 02-27-2025 Telephone encounter Note 03/14/25 device check scheduled. [facility] 02-23-2025 Note [facility] 02-23-2025 History of Present illness Narrative NUTRITION THERAPY ONCOLOGY NOTE Reassessment I have communicated my name and active licensure. The patient's identity and physical location were verified at the time of this visit. Either the patient or their legal title insurance sales representative has been informed of the risks and benefits of -- and alternatives to -- treatment through a remote evaluation and consents to proceed with the evaluation remotely. RECOMMENDED MALNUTRITION DIAGNOSIS: MILD PROTEIN-CALORIE MALNUTRITION ETIOLOGY: In the context of Chronic Illness or Injury based on: Unintentional Weight Loss: >7.5% in 3 months Some elements copied from Sarthak's note on 2024, have been updated and all reflect current decision making from today, 02/23/2025 Nutrition Diagnosis: Inadequate protein-energy intake, related to esophagitis, as evidenced by inability to maintain intake with solid foods, wt loss Nutrition Intervention: - goal of 4 Reason shakes daily - start to add soft foods as tolerated - maintain hydration: sip on fluids throughout the day Previous Nutrition Intervention: -Consider meal prepping prior to treatment. - aim for 5-6 small/frequent meals - incorporate lean sources of protein/plant based proteins at meals - Stay well hydrated - sip on fluids throughout the day - start supplementation: Ensure Plus or Complete; Boost Plus 2-3 times per day Educational materials provided: None this visit Referral(s): none Nutrition Monitoring & Evaluation: weight status, bowel regulation, hydration status, tolerance to nutrition support (ONS/EN), biochemical markers, management of nutrition impact symptoms. Date of last encounter: 2024 Patient met goal(s): No HPI: This is a(n) 64 year old patient with lung cancer. Current treatment: recently finished with chemo and radiation. PMH: HTN. Nutrition Assessment/Interval History: Patient presents for nutrition counseling for follow up. Patient's weight triggers for significant weight loss and meeting approximately less than 75% of estimated nutritional needs. Diet recall shows inadequate protein and calorie intake. Hydration is inadequate . Nutrition impact symptoms are interfering with appetite with esophagitis being main barriers to oral intakes . Nutrition related labs indicate hypokalemia. Overall, patient remains at higher nutritional risk due to malnutrition, requiring further interventions and ongoing monitoring. SUBJECTIVE/OBJECTIVE - drinking 2 Reason shakes daily which contain ~450kcals, unable to determine how long patient has had decreased oral intake - liquids and room temperature foods best tolerated Patient's Symptoms are: Oral: esophagitis, trouble swallowing- taking BMX Weight Concerns: weight loss Food Insecurity Screening: Food Insecurity: No Food Insecurity (11/09/2024) Received from [employer] [facility] Within the past 12 months we worried whether our food would run out before we got money to buy more.: Never True Within the past 12 months the food we bought just didn't last and we didn't have money to get more.: Never True Readiness to Learn: Cognitive ability: Alert and oriented Motivation to learn: Interested Family support: High - Very involved in pt care Instruction provided to: Patient and Spouse Patient learns best by: Multiple Methods Factors affecting learning: None Physical limitations affecting learning: None Anthropometrics: Height: Last 1 Encounter Ht Readings: Date: Ht: 02/21/2025 171.6 cm (5' 7.55 ) Current weight: Last 1 Encounter Wt Readings: Date: Wt: 02/21/2025 72.6 kg (160 lb) Estimated body mass index is 24.65 kg/m as calculated from the following: Height as of 02/21/25: 171.6 cm (5' 7.55 ). Weight as of 02/21/25: 72.6 kg (160 lb). Resting Metabolic Rate: 1492 Weight Change: 16% wt loss x 3 months- clinically significant Estimated Nutritional needs: Dosing Weight: 72.6 kg Estimated kilocalorie needs: 1389-9360 kilocalories determined by 22-25 kcal/kg Estimated protein needs: 72-87 grams determined by 1.0-1.2 g/kg Dosing weight Estimated fluid needs: 2882-2174 milliliters based on 1 mL per kcal Nutrition Focused Physical Exam: Unable to perform exam due to patient unable to participate, will re-attempt during reassessment. Potential Signs of Inflammation: chronic condition Need for Follow up: PRN per pt request Referred/Supervised by: Dr. Lizama/Dr. Perez MNT Billing Type: Re-assess 1 unit Total Time (mins): 8 SIGNATURE: Tammie Bunn RD PATIENT NAME: Jatin Koch II DATE: 02/23/2025 documented in this encounter [facility] 02-22-2025 History of Present illness Narrative Jatin is here for radiation therapy with continuous pulse oximetry. Pulse SpO2 Pretx 108-114 84-100% Pulse oximeter repositioned and pulse went from 84% to 93% patient denies Shortness of Breath or other concerns. Cone beam 110-113 97-100% Post cb 106-111 98-99% Tx 107-113 100% Post tx 109 100% Patient tolerated treatment without concerns. Cassia Cantu RN documented in this encounter [facility] 02-22-2025 Note [facility] 02-22-2025 Note [facility] 02-21-2025 Note [facility] 02-21-2025 Telephone encounter Note Is there any update on this for this pt? He did have oncology referral prior to starting Tx. Thank you!! Macy Morgan RN [facility] 02-21-2025 Miscellaneous Notes Is there any update on this for this pt? He did have oncology referral prior to starting Tx. Thank you!! Macy Morgan RN Pt has seen sales vice president in the past. I will copy them on this info to see if they can be of assistance in recommending this. Macy Morgan RN Annel- can you possibly look into pts information and see if he would qualify for the [facility] assistance for nutritional supplements? Pt is relying primarily on supplements and I suggested they switch to [facility] to get more calories in as he is losing weight consistently. She was interested in possible assistance but not sure of qualifications. Thank you Macy Morgan, RN documented in this encounter [facility] 02-21-2025 Instructions Rasheed Perez MD - 02/21/2025 9:45 AM EDT IV fluids today Schedule neulasta tmrw Ordered pet scan to be done in 4 weeks F/u in 5 weeks documented in this encounter [facility] 02-21-2025 History of Present illness Narrative Images from the original note were not included. PATIENT NAME: Jatin Koch II CLINIC NO.: [id number] ATTENDING PHYSICIAN: Rasheed Perez MD DATE OF SERVICE: 02/21/[address] Chip Carbajal [address] [place] [address] thank you for referring Jatin Koch II for an opinion regarding Lung cancer. Some of the elements of this note have been copied from Tristin Wong previous progress note dated 02/14/25 . All the information has been reviewed carefully. CHIEF COMPLAINT: Lung cancer HPI: Jatin Koch II is a 63 year old year old male with PMH of HTN referred to us for lung cancer. CT chest : PET scan: C/o cough and lost 30lbs. Quit smoking in 2017. Smoked 1 pk/day for 40yrs. 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 C/o hemoptysis. C/o mild dysphagia. 11/17/24: - Recently had a pacemaker implanted on 11/09/24 due to complete heart block, which was an emergency procedure. He reports feeling 100% better since the pacemaker was placed. - Scheduled for bronchoscopy on 11/20/24. - Doing well. - Cough is better. 12/26/24: - Hospitalized from 12/15-12/22/24 with pneumonia - CT C/A/P at [facility] in December 2024 is negative for mets. - C/o right sided chest pain - He will finish antibiotics on Wednesday. 01/02/25: - C/o chills. - Started radiation today - Cycle 1 chemo today. - C/o loss of appetite and weight loss. 01/08/25: - Hospitalized last week with PNA. Treated with Abx. - CT chest at [facility] on 01/02/25 showed T5 lytic lesin. Cannot exclude malignancy - On PO abx - No other complaints. 01/15/25: - C/o worsening chest pain - C/o Shortness of Breath and difficulty swallowing - C/o headache and vision changes. 01/18/25: - Hospitalized at [facility] for pneumonia - C/o chest pain 02/05/25: [...] experiencing nausea, vomiting, diarrhea, constipation, or neuropathy. 02/21/25: - Tmrw is last day of radiation - C/o dysphagia from esophagitis - C/o chest discomfort - Recd blood transfusion on last wednesday Current Outpatient Medications Medication Sig Ipratropium [place] (ATROVENT) 21 mcg (0.03 %) nasal spray USE 2 SPRAYS IN THE NOSE TWO TIMES A DAY. midodrine (PROAMATINE) 2.5 mg tablet TAKE 1 [...] 1 tablet by mouth daily at bedtime. amoxicillin-clavulanate potassium (AUGMENTIN) 875-125 mg per tablet [...] Status 02/14/2025 5.05 3.70 - 11.00 k/uL Final RBC Date Value Ref Range Status 02/14/2025 2.77 (L) 4.20 - 6.00 m/uL Final Hemoglobin Date Value Ref Range Status 02/14/2025 7.0 (L) 13.0 - 17.0 g/dL Final Hematocrit Date Value Ref Range Status 02/14/2025 22.5 (L) 39.0 - 51.0 % Final MCV Date Value Ref Range Status 02/14/2025 81.2 80.0 - 100.0 fL Final MCH Date Value Ref Range Status 02/14/2025 25.3 (L) 26.0 - 34.0 pg Final MCHC Date Value Ref Range Status 02/14/2025 31.1 30.5 - 36.0 g/dL Final RDW-CV Date Value Ref Range Status 02/14/2025 16.4 (H) 11.5 - 15.0 % Final Platelet Count Date Value Ref Range Status 02/14/2025 76 (L) 150 - 400 k/uL Final Comment: No clot detected. MPV Date Value Ref Range Status 02/14/2025 10.3 9.0 - 12.7 fL Final Abs Neut (Segs + Bands) Date Value Ref Range Status 02/14/2025 4.87 1.45 - 7.50 k/uL Final Lymphocytes % Date Value Ref Range Status 02/14/2025 2.6 % Final Abs Lymph (Normal + Reactive) Date Value Ref Range Status 02/14/2025 0.13 (L) 1.00 - 4.00 k/uL Final Monocytes % Date Value Ref Range Status 02/14/2025 0.0 % Final Abs Latimer Date Value Ref Range Status 02/14/2025 0.00 <0.87 k/uL Final Eosin% Date Value Ref Range Status 02/14/2025 0.9 % Final Abs Eosin Date Value Ref Range Status 02/14/2025 0.05 <0.46 k/uL Final Basophils % Date Value Ref Range Status 02/14/2025 0.0 % Final Abs Baso Date Value Ref Range Status 02/14/2025 0.00 <0.11 k/uL Final PATH: IMAGING: PET scan [...] 12/15-12/22/24 with pneumonia - CT C/A/P at [facility] in December 2024 is negative for mets - Right lung, bronchus intermedius, endobronchial biopsy: Squamous cell carcinoma. PD-L1 TPS 0%. - Due for cycle 1 D1 weekly carbo taxol on 01/02/25. Pt developed infusion reaction after starting Taxol infusion. - Developed sweating, hypotension, lethargy, tachycardia etc. Pt was sent to hospital. - CT chest at [facility] on 01/02/25 showed T5 lytic lesion. Cannot exclude malignancy. Monitor for now. - Recd cycle 1 cisplatin etoposide from 01/08-01/12/25. - Missed C1 D8 cisplatin due to hospitalization - Hospitalized from 01/15-01/18/25 with pneumonia PLAN: 1. Malignant neoplasm of lower lobe of right lung (HCC) - ICD9: 162.5, ICD10: C34.31 - He will finish radiation tomorrow - We will hold off on day 36 cisplatin due to low WBC. - We will administer neulasta tmrw to improve wbc. - Recd 1 unit prbc transfusion on 02/16/25. - Ordered repeat pet scan - We will do maintenance Durvalumab depending on PET findings. - [facility] one test on showed no evidence of actionable mutations. - All his questions answered in detail. - F/u in [address] Chip [address] [place] [address] thank you for allowing me to participate in Jatin Suly [facility], if there are any questions or concerns please do not hesitate to contact me at the number below. I spent a total of 30 minutes on the date of the service which included preparing to see the patient, [id number] patient care, completing clinical documentation, obtaining and/or reviewing separately obtained history, performing a medically appropriate examination, counseling and educating the patient/family/caregiver, ordering medications, tests, or procedures, communicating with other HCPs (not separately reported), independently interpreting results (not separately reported), communicating results to the patient/family/caregiver, and care coordination (not separately reported). Rasheed Perez MD. Hematology and Oncology Services Provided at: [place], [place] CC: documented in this encounter [facility] 02-21-2025 Note [facility] 02-21-2025 History of Present illness Narrative Jatin is here for radiation therapy with continuous pulse oximetry. Pulse SpO2 Pretx 101-105 98% Cone beam 102-104 86-100%--dropped to 86%, patient advised to take deep easy breaths, pulse oximeter adjusted on patient's finger and SpO2 increased from 86%-94%. Tx 102-105 91-96% dropped to 91% at the very end of treatment, readjusted pulse oximeter and SpO2 increased to 96 Post tx 105 96-97% Patient tolerated treatment without complaints. On treatment visit with Dr. Lizama today as scheduled. Cassia Cantu, RN documented in this encounter [facility] 02-21-2025 Note [facility] 02-20-2025 Note [facility] 02-20-2025 History of Present illness Narrative Pulse Monitored during radiation treatment. Pre Tx Pulse 104, Pulse Ox 94% Cone Beam Pulse 100 Pulse Ox 94% Beam on Pulse 100-1-2 Pulse Ox 94-100% Post Treatment Pulse 100 Pulse Ox 98% Macy Morgan RN documented in this encounter [facility] 02-20-2025 Instructions Sheila Freeman APRN.ABBEY - 02/20/2025 11:04 AM EDT Sheila Freeman CNP Department of Palliative and Supportive Care Palliative Care - Specialty services in symptom management and support For questions or prescription refills, call: [phone] Wednesday - Wednesday 9AM-5PM MARIELLA Estrella, RN - Regional Service Manager Please call 3-5 days in advance for medication refills Evenings, Weekends, Holidays: [phone] (ask for palliative medicine on-call provider) For appointments, cancellations or reschedule, call: [phone] documented in this encounter [facility] 02-20-2025 Telephone encounter Note OK to do IV fluids today. I will enter it. Thank you [facility] 02-20-2025 Miscellaneous Notes OK to do IV fluids today. I will enter it. Thank you Jatin is here for consult with palliative medicine and radiation to follow. Mrs. Koch spoke to me in the lobby and asked if Jatin can receive IV hydration today while here. She said due to his esophagitis, he's having some difficulty swallowing. Please enter hydration orders if you are in agreement. Dr. Lizama is not in the office this a.m. Thanks Cassia Cantu RN documented in this encounter [facility] 02-20-2025 Telephone encounter Note Jatin is here for consult with palliative medicine and radiation to follow. Mrs. Koch spoke to me in the lobby and asked if Jatin can receive IV hydration today while here. She said due to his esophagitis, he's having some difficulty swallowing. Please enter hydration orders if you are in agreement. Dr. Lizama is not in the office this a.m. Thanks Cassia Cantu RN [facility] 02-20-2025 Note [facility] 02-20-2025 History of Present illness Narrative PALLIATIVE MEDICINE PROGRESS NOTE SERVICE DATE: February 20, 2025 IDENTIFICATION AND INTRODUCTION: Jatin Koch II is a 64 year old male This visit took place In Ambulatory [facility] Facility Recording using [employer] Education software for draft documentation of the visit was discussed with the patient/authorized title insurance sales representative; all questions welcomed and answered. Patient/authorized title insurance sales representative agreed to proceed CHIEF COMPLAINT: Neoplasm related Pain PERTINENT MEDICAL HISTORY: Squamous cell lung cancer Complete Heart Block s/p pacemaker Subjective Patient presents with severe pain and difficulty swallowing, which has significantly impacted their ability to eat and drink. Caregiver reports that patient was seen in the ER on Wednesday night, where a CT scan, EKG, and blood work were performed, ruling out pulmonary embolism and cardiac issues. Patient was treated for esophagitis and prescribed BMX 10 mL, which they started taking yesterday. Patient has also been taking oxycodone twice a day for cough and pain, but caregiver reports increasing the dosage to four times a day due to inadequate pain control. Despite these measures, patient has been unable to eat and is only taking enough fluids to swallow medications. Patient reports that the pain subsides when lying down. Caregiver reports that patient has experienced occasional nausea and vomiting, particularly in the mornings, but has not required Zofran. Patient's bowel movements are reported as normal, and caregiver has increased patient's stool softener to two tablets daily to prevent constipation from the increased oxycodone dosage. Patient reports no appetite, although caregiver notes that patient had started to show signs of appetite improvement with Remeron before the onset of current symptoms. Patient's breathing is described as alright but painful during belching or hiccuping. Sleep is reported as good, and patient notes feeling stronger in the legs. Patient has also been coughing up yellow sputum but reports a decrease in the frequency of coughing episodes. REVIEW OF SYSTEMS: Modified ESAS ([place] Symptom Assessment Scale) Information Provided By: Patient Pain: Severe Nausea: None Loss of Appetite: Moderate Constipation: Mild Shortness of Breath: Mild Drowsiness: None Tiredness: Moderate Depression: None Anxiety: None Objective PHYSICAL EXAMINATION: There were no vitals taken for this visit. General Appearance: No apparent distress Skin: No jaundice and No rash Eyes: Normal and No Icterus HENT: Atraumatic and Oropharnyx clear with moist mucous membranes Neck: Grossly normal, No masses, and No JVD Lungs: Normal effort, no cough CV: Not examined Abdomen: Not examined Musculoskeletal: No edema and No gross deformity Lymphatics: Not examined Neuro: Alert and oriented to time place and person Psych: Well groomed, Affect congruent with mood, and Good eye contact DATA: Diagnostic tests reviewed for today's visit: Most recent labs and imaging results. Creatinine Date Value Ref Range Status 02/14/2025 0.80 0.73 - 1.22 mg/dL Final Estimated Creatinine Clearance: 90 mL/min (based on SCr of 0.8 mg/dL). Opioid Management: Indication for Opioid Prescribing: Cancer related pain ORT-OUD Score: 1 A score of 3 or higher may indicate a higher risk for future development of aberrant drug related behavior or opioid use disorder. Informed consent for chronic opiate therapy obtained and written pain agreement: On file Naloxone offered?: Previously prescribed Course of treatment, patient's response and adherence [...] APPROPRIATELY filled. No suspicious activity was identified. 02/20/2025 by Sheila Freeman, BANQUET DIRECTOR, FORENSIC MEDICAL EXAMINER.DEPARTMENT OPERATIONS MANAGER Assessment & Plan 1. Malignant neoplasm of lower lobe of right lung (HCC) (C34.31) 2. 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 Palliative care by specialist (Z51.5) - Undergoing chemotherapy and radiation; immunotherapy planned post-treatment. - Severe pain limiting oral intake; currently on oxycodone, increased from BID to QID. - Start fentanyl patch 25 mcg/hr for improved pain control; refill oxycodone for breakthrough pain. - Educated on fentanyl patch onset (24 hours to therapeutic effect) and titration based on oxycodone use. - IV hydration ordered. - Discussed treatment timeline and follow-up imaging with oncology. 4. Esophagitis (K20.90) 5. Dysphagia, unspecified type (R13.10) 6. Anorexia (R63.0) - Recent ER visit ruled out PE and cardiac causes; treated as esophagitis. - Currently on BMX 10 mL Q8H and Protonix. - Start liquid Carafate to coat esophagus and reduce discomfort. - Advised continuation of high-calorie shakes to maintain caloric intake. 7. SOB (shortness of breath) (R06.02) 8. Chronic cough (R05.3) - Cough improved, less frequent and productive. - Continue current management. 9. Rhinorrhea (J34.89) - Atrovent providing effective relief. 10. Constipation due to opioid therapy (K59.03) - No current constipation; bowel movements regular. - Increased bowel regimen from 1 to 2 tablets daily with increased oxycodone. Some elements copied from my note on 01/23/25, the elements have been updated and all reflect current decision making from today, 02/20/2025. I spent a total of 35 minutes on the date of the service which included preparing to see the patient, [id number] patient care, completing clinical documentation, obtaining and/or reviewing separately obtained history, performing a medically appropriate examination, counseling and educating the patient/family/caregiver, ordering medications, tests, or procedures, communicating with other HCPs (not separately reported), independently interpreting results (not separately reported), communicating results to the patient/family/caregiver, and care coordination (not separately reported). Next Visit: 4 Weeks in-person Palliative Medicine Nurse to do telephonic follow-up: Yes Tractor Sweeper Driver Services: None at this time Referral to Coating Machine Feeder: No, not at this time Sheila Freeman NP, VINAY.DEPARTMENT OPERATIONS MANAGER February 20, 2025 10:36 AM This note may have been partially generated using the [employer] voice recognition system. While every effort was made to correct voice recognition errors, kindly be aware that some errors may occasionally occur. documented in this encounter [facility] 02-19-2025 Note [facility] 02-19-2025 History of Present illness Narrative Pulse monitored during radiation treatment as ordered. Pre Tx Pulse 113, Pulse Ox 97% Cone Beam Pulse 112, Pulse Ox 94% Beam on Pulse 112, Pulse Ox 96% After Treatment Pulse 112, Pulse Ox 94-95% Macy Morgan RN documented in this encounter [facility] 02-19-2025 Telephone encounter Note Records scanned. [facility] 02-19-2025 Miscellaneous Notes Records scanned. Call received from pt's stating pt went to [place] [facility] last night because he couldn't swallow and was having chest pain. She states they attempted to give him a GI cocktail but pt wasn't able to keep it down and threw it right back up. states it must have coated his throat a little bit because he ate some food when he got home and he slept well last night. states pt's WBC was 2. asking if pt should still come in for radiation. Encouraged to bring him in as scheduled and call was transferred to radiation. Blanquita Hargrove RN Pts LM to let us know that Mr Koch had been in ER yesterday with esophagitis. He was given IV Protonix, GI Cocktail and a prescription for BMX. She was inquiring if they should still come to RT today. I returned call and let her know that yes, he should come in today. She would like to get BMX at our pharmacy if possible. Will get records from [facility] as well. LILIAM- can you please sign order so pt/spouse can rock picker when they come in? Reyna- please get records and images from [place]. Thank you Macy Morgan, RN documented in this encounter [facility] 02-19-2025 Telephone encounter Note Patient coming Wednesday02/21/25 for follow up with labs. Please add lab orders. Thanks. Dara Vásquez MA [facility] 02-19-2025 Telephone encounter Note Call received from pt's stating pt went to [place] [facility] last night because he couldn't swallow and was having chest pain. She states they attempted to give him a GI cocktail but pt wasn't able to keep it down and threw it right back up. states it must have coated his throat a little bit because he ate some food when he got home and he slept well last night. states pt's WBC was 2. asking if pt should still come in for radiation. Encouraged to bring him in as scheduled and call was transferred to radiation. Blanquita Hargrove RN [facility] Work Phone: 02-19-2025 Telephone encounter Note Pts LM to let us know that Mr Koch had been in ER yesterday with esophagitis. He was given IV Protonix, GI Cocktail and a prescription for BMX. She was inquiring if they should still come to RT today. I returned call and let her know that yes, he should come in today. She would like to get BMX at our pharmacy if possible. Will get records from [facility] as well. LILIAM- can you please sign order so pt/spouse can rock picker when they come in? Reyna- please get records and images from [place]. Thank you Macy Morgan, RN [facility] 02-16-2025 Note [facility] 02-16-2025 History of Present illness Narrative Jatin is here for radiation [...] Cassia Cantu RN documented in this encounter [facility] 02-15-2025 Telephone encounter Note Brian Reyesmaryjane (son) called the fax copy of his [facility] paperwork never went through. So,he is requesting that his paperwork be sent through email at [email or web address] and to [email or web address]. Done with success. Dara Vásquez MA [facility] 02-15-2025 Note [facility] 02-15-2025 History of Present illness Narrative Jatin is here for radiation therapy with continuous pulse oximetry. Pulse SpO2 Pre tx 106-109 97% Cone beam 106-108 97% Post cb 106-108 96-98% Tx 105-107 96-97% Post tx 105 96% Patient tolerated treatment without concerns. Cassia Cantu RN documented in this encounter [facility] 02-14-2025 Note [facility] 02-14-2025 History of Present illness Narrative Radiation Oncology - On Treatment [...] concurrent chemotherapy AREA TREATED: Chest CURRENT DOSE: 4800 cGy in 24 fx PLANNED DOSE: 6000 cGy in 30 fx SUBJECTIVE: Tolerating XRT well and continues to note dyspnea on exertion and cough which is unchanged and denies any chest pain or hemoptysis or skin irritation. He is starting to notice slight esophagitis but is still able to swallow well. He does note fatigue. EXAM: KPS: 80 General Appearance: Alert and oriented. No acute distress. Radiation dermatitis: No IMAGING/LAB RESULTS: None Treatment chart checked: Yes Patient treatment site reviewed and verified:Yes Port films reviewed and current:Yes Medications started: None ASSESSMENT/PLAN: Clinically stable. Side effects are within expected parameters. Continue radiation treatment as planned. Ezra Lizama MD Jatin is here for radiation therapy with [...] Cassia Cantu RN documented in this encounter [facility] 02-14-2025 Telephone encounter Note 1 unit packed RBC's at [facility] on 02-15-25. Went today 02-14-25 for lab draw. Order was faxed. [facility] 02-14-2025 Miscellaneous Notes 1 unit packed RBC's at [facility] on 02-15-25. Went today 02-14-25 for lab draw. Order was faxed. documented in this encounter [facility] 02-14-2025 Telephone encounter Note Pharmacy sends request for 90 day Rx of Ipratropium nasal spray. Order pended if provider agreeable. Thank you, REMA Koroma, [facility] Sample Sawyer [facility] 02-14-2025 Miscellaneous Notes Pharmacy sends request for 90 day Rx of Ipratropium nasal spray. Order pended if provider agreeable. Thank you, REMA Koroma, [facility] Sample Sawyer documented in this encounter [facility] 02-14-2025 Telephone encounter Note Pt has seen sales vice president in the past. I will copy them on this info to see if they can be of assistance in recommending this. Macy Morgan, RN [facility] 02-14-2025 Telephone encounter Note Annel- can you possibly look into pts information and see if he would qualify for the [facility] assistance for nutritional supplements? Pt is relying primarily on supplements and I suggested they switch to [facility] to get more calories in as he is losing weight consistently. She was interested in possible assistance but not sure of qualifications. Thank you Macy Morgan, RN [facility] 02-14-2025 History of Present illness Narrative Images from the original note were not included. PATIENT NAME: Jatin Koch II CLINIC NO.: [id number] ATTENDING PHYSICIAN: Rasheed Perez MD DATE OF SERVICE: February 14, 2025 (Silvia) Dear Dr. Chip Carbajal [address] [address] thank you for referring Jatin Koch II [...] pk/day for 40yrs. 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 C/o hemoptysis. C/o mild dysphagia. 11/17/24: - Recently had a pacemaker implanted on 11/09/24 due to complete heart block, which was an emergency procedure. He reports feeling 100% better since the pacemaker was placed. - Scheduled for bronchoscopy on 11/20/24. - Doing well. - Cough is better. 12/26/24: - Hospitalized from 12/15-12/22/24 with pneumonia - CT C/A/P at [facility] in December 2024 is negative for mets. - C/o right sided chest pain - He will finish antibiotics on Wednesday. 01/02/25: - C/o chills. - Started radiation today - Cycle 1 chemo today. - C/o loss of appetite and weight loss. 01/08/25: - Hospitalized last week with PNA. Treated with Abx. - CT chest at [facility] on 01/02/25 showed T5 lytic lesin. Cannot exclude malignancy - On PO abx - No other complaints. 01/15/25: - C/o worsening chest pain - C/o Shortness of Breath and difficulty swallowing - C/o headache and vision changes. 01/18/25: - Hospitalized at [facility] for pneumonia - C/o chest pain 02/05/25: [...] tablet by mouth daily at bedtime. Ipratropium [place] (ATROVENT) 21 mcg (0.03 %) nasal spray [...] Range Status 02/05/2025 5.6 % Final Abs Latimer Date Value Ref Range Status 02/05/2025 1.10 [...] 12/15-12/22/24 with pneumonia - CT C/A/P at [facility] in December 2024 is negative for mets - Right lung, bronchus intermedius, endobronchial biopsy: Squamous cell carcinoma. PD-L1 TPS 0%. - Due for cycle 1 D1 weekly carbo taxol on 01/02/25. Pt developed infusion reaction after starting Taxol infusion. - Developed sweating, hypotension, lethargy, tachycardia etc. Pt was sent to hospital. - CT chest at [facility] on 01/02/25 showed T5 lytic lesion. Cannot [...] - Order 1 unit PRBC transfusion at [facility]. - Educated patient and family on the role of hemoglobin in oxygen transport and the expected improvement in fatigue and weakness following transfusion. - We will repeat PET scan 3-4 weeks after completing radiation therapy and then start maintenance Durvalumab depending on PET findings. - All his questions answered in detail. - F/u in [address] Chip Carbajal [address] [place] [address] thank you for allowing me to participate in Jatin Koch care, if there are any questions or concerns please do not hesitate to contact me at the number below. I spent a total of 30 minutes on the date of the service which included preparing to see the patient, [id number] patient care, completing clinical documentation, obtaining and/or reviewing separately obtained history, performing a medically appropriate examination, counseling and educating the patient/family/caregiver, ordering medications, tests, or procedures, communicating with other HCPs (not separately reported), independently interpreting results (not separately reported), communicating results to the patient/family/caregiver, and care coordination (not separately reported). Tristin Wong APRN, BANQUET DIRECTOR-C, [facility] Provided at: [place], [place] CC: documented in this encounter [facility] 02-14-2025 Note [facility] 02-14-2025 History of Present illness Narrative Jatin is here for radiation [...] Cassia Cantu, RN documented in this encounter [facility] 02-14-2025 Note [facility] 02-14-2025 Note [facility] 02-13-2025 Note [facility] 02-13-2025 History of Present illness Narrative Pt monitored for radiation treatment [...] Tx Pulse 118 Pulse Ox 96% Macy Morgan, PRITI documented in this encounter [facility] 02-13-2025 Telephone encounter Note Patient's schedule has been adjusted. Patient was scheduled to see a provider tomorrow and his radiation was at 11:45 start, so did a different time in the AM to allow for patient to see CANDICE. Thanks! Carolina Perdue [facility] 02-13-2025 Miscellaneous Notes Patient's schedule has [...] Blanquita Hargrove RN documented in this encounter [facility] 02-13-2025 Telephone encounter Note Spoke with treatment lead and pt's appointment tomorrow for chemo needs to be moved up to 1130. Cis is a 4 hour treatment and pt will also be getting IV magnesium pre and post cisplatin. Please adjust schedule and notify pt of any time changes when he is here today for radiation. Thanks Blanquita Hargrove RN [facility] Work Phone: 02-09-2025 History of Present illness Narrative Jatin Pulliam Crispin ANSARI Date of visit: 02/09/2025 Date of : 1960 Age: 64 y.o. Patient Active Problem List Diagnosis AV block BPH with urinary obstruction Arthritis Gout Squamous cell lung cancer ([facility]) Syncope Pacemaker- [employer] Allergies Allergen Reactions Emend [Aprepitant] Anaphylaxis Etoposide [...] Complaint Patient presents with Follow-up ov/pm d/c [facility] afib med changes ian w pt - aware [facility] office Device Check History of Present Illness Jatin Koch II is here on follow-up after recent ER visits for tachycardia and shortness of breath. He has a history of paroxysmal atrial fibrillation, intermittent complete heart block, lung CA currently receiving radiation treatments managed by [facility] Oncology [facility] office. He was hospitalized in October at [facility] warranting pacemaker: [employer] dual-chamber. Patient has been to the [...] have him set to follow-up in May [place] office. Past Medical History: Diagnosis Date Arthritis Hypertension Lung cancer (CMS-HCC) Sleep apnea No data recorded No data recorded No data recorded Past Surgical History: Procedure Laterality Date EP Invasive DC PPM Left 11/09/2024 Performed by Robert Veloz MD at [facility] (EP) SKIN BIOPSY basal cell carcinoma removed from left mandaen TONSILLECTOMY TURP / TRANSURETHRAL INCISION / DRAINAGE [...] Squamous cell carcinoma of lung, unspecified laterality ([facility]) 1. Intermittent complete heart block s/p [employer] dual-chamber pacemaker 11/09/2024. Known elevated atrial [...] valvulopathy on echo completed January 2025 at [facility] Continue remote monitoring. Appointment follow-up arranged in May. Patient seen while Dr. Reyna was immediately available in the office suite TODAYS ORDERS Orders Placed This Encounter Procedures Device Interrogation POCT EKG FOLLOW UP Return in about 4 months (around 06/11/2025) for Next scheduled follow up [place] with d check. PCP: CLINT PRINCE Referring Physician: CLINT Prince [address] [place] [address] CLINT Chowdary 02/09/25 1641 documented in this encounter [facility] 02-09-2025 History of Present illness Narrative I agree with the findings in the scanned document. documented in this encounter [facility] 02-09-2025 Note [facility] 02-09-2025 History of Present illness Narrative Jatin is here for radiation therapy with continuous pulse oximetry Pulse SpO2 Pretx 83-108 96-97% Cone beam 91-109 96-97% Post cb 91-114 97% Tx 82-112 97% Post tx 93-110 97% Patient tolerated treatment without concerns. Cassia Cantu RN documented in this encounter [facility] 02-08-2025 Note [facility] 02-08-2025 History of Present illness Narrative Pulse Monitored during radiation treatment. Pre Tx Pulse 95 Pulse Ox 97% Cone Beam Pulse 94 Pulse Ox 97% Beam on Pulse 94-97 Pulse Ox 97% Post Tx Pulse 94 Pulse Ox 96% Macy Morgan, PRITI documented in this encounter [facility] 02-08-2025 Miscellaneous Notes Called patient to remind them to bring their most current copy of their medication list with them to their appt. Patient verbalizes understanding. documented in this encounter [facility] 02-08-2025 Telephone encounter Note Called patient to remind them to bring their most current copy of their medication list with them to their appt. Patient verbalizes understanding. [facility] 02-08-2025 Note [facility] 02-08-2025 History of Present illness Narrative Patient continued/worsening hiccufs despite taking baclofen, an Rx for thorazine was sent to [facility]. Patient was notified and agrees. Charlotte Butler RN documented in this encounter [facility] 02-08-2025 Telephone encounter Note notified Blanquita Hargrove RN [facility] Work Phone: 02-08-2025 Miscellaneous Notes notified [...] any other concerns at this time. Prefers [facility] in [place] if a script is called in. Please advise Blanquita Hargrove RN documented in this encounter [facility] 02-08-2025 Telephone encounter Note I sent Thorazine to pharmacy. Please tell him to try it. Thank you [facility] 02-08-2025 Telephone encounter Note calls stating pt continues to have constant hard hiccups. Pt has been taking baclofen TID for 3 days now with no relief. RNCC can hear pt's constant hiccups in the background of this phone call. Pt denies any other concerns at this time. Prefers [facility] in [place] if a script is called in. Please advise Blanquita Hargrove RN [facility] 02-07-2025 Note [facility] 02-07-2025 History of Present illness Narrative Radiation Oncology - On Treatment [...] concurrent chemotherapy AREA TREATED: Chest CURRENT DOSE: 4000 cGy in 20 fx PLANNED DOSE: 6000 cGy in 30 fx SUBJECTIVE: Tolerating XRT well and notes continued dyspnea on exertion which she feels is slightly improved with mild cough and denies any chest pain or hemoptysis or difficulty swallowing or skin irritation the treatment area. He endorses fatigue with some improvement in his energy with good appetite and hydration and some increased weight. PHYSICAL EXAM: Area Assessed: Chest KPS: 80 General Appearance: Alert and oriented. No acute distress. Chest: No respiratory distress. IMAGING/LAB RESULTS: None TOXICITY ASSESSMENT (CTC v4.0): Fatigue: grade 1 - Fatigue relieved by rest Weight loss: grade 0 - No weight loss Nausea:Grade 0 - No Symptoms Radiation Dermatitis:grade 0 - No symptoms Dysphagia: grade 0 - No symptoms Esophageal Pain: Grade 0 - No symptoms Dyspnea: grade 1 (Shortness of breath with moderate exertion) Treatment chart checked: Yes Patient treatment site reviewed and verified:Yes Port films reviewed and current:Yes Medications started: None ASSESSMENT/PLAN: Clinically stable. Side effects are within expected parameters. Continue radiation treatment as planned. Ezra Lizama MD documented in this encounter [facility] 02-07-2025 Note [facility] 02-07-2025 History of Present illness Narrative Jatin is here for radiation therapy with continuous pulse oximetry. Pulse Oxygen Pre tx 69-77 97% Cone beam 72-81 96-97 % Post cb 72-80 95-97% Tx 73-82 94-97% Post tx 76-79 96 Patient tolerated treatment without concerns. Cassia Cantu RN documented in this encounter [facility] 02-06-2025 Telephone encounter Note Pt notified. Blanquita Hargrove RN [facility] Work Phone: 02-06-2025 Miscellaneous Notes Pt notified. Blanquita Hargrove RN I sent baclofen to pharmacy. Thank you Pt calls stating he continues to have hiccups and would like something called into his pharmacy for him. Pt prefers [facility] [place]. Thanks Blanquita Hargrove RN documented in this encounter [facility] 02-06-2025 Telephone encounter Note I sent baclofen to pharmacy. Thank you [facility] 02-06-2025 Telephone encounter Note Pt calls stating he continues to have hiccups and would like something called into his pharmacy for him. Pt prefers [facility] [place]. Thanks Blanquita Hargrove RN [facility] 02-06-2025 Note [facility] 02-06-2025 History of Present illness Narrative Patient Name: Jatin Koch II [...] was in wheelchair --stand-by assist Treatment Plan: Trinidadian massage --medium pressure to cervical neck, upper/lower trapezius, mid-lower thoracic and lower back/glutes Care Team contacted: N/A Signature: Madison Gagnon LMT Date: February 06, 2025 Time: 3:09 PM documented in this encounter [facility] 02-06-2025 Note [facility] 02-06-2025 History of Present illness Narrative Pulse monitored during radiation treatment. Pre Treatment Pulse 90 Pulse Ox 99% Cone Beam PUlse 83 Pulse Ox 98% Beam On Pulse 82-88 Pulse Ox 98% After Tx Pulse 87 Pulse Ox 97% Macy Morgan RN documented in this encounter [facility] 02-05-2025 Note [facility] 02-05-2025 History of Present illness Narrative Jatin is here for radiation therapy with continuous pulse oximetry. Pulse SpO2 Pretx 74-98 96-98% Cone beam 78-93 95-97% Post cb 93-102 95-98% Beam on 90-65 95-98% Post tx 90-95 95% Patient tolerated treatment without concerns. Cassia Cantu RN documented in this encounter [facility] 02-05-2025 Note [facility] 02-05-2025 History of Present illness Narrative Lab potassium 3.2 today, secure chat message sent to Dr Perez orders to give 20 meq IV KCL with today's treatment. Treatment nurse and pharmacy aware PRITI Hernandez RN documented in this encounter [facility] 02-05-2025 Instructions Rasheed Perez MD - 02/05/2025 9:44 AM EDT Treatment this week and next week F/u next week documented in this encounter [facility] 02-05-2025 History of Present illness Narrative Images from the original note were not included. PATIENT NAME: Jatin Koch II CLINIC NO.: [id number] ATTENDING PHYSICIAN: Rasheed Perez MD DATE OF SERVICE: 02/05/[address] Chip Carbajal [address] [place] [address] thank you for referring Jatin Kcoh II for an opinion regarding Lung cancer. [...] pk/day for 40yrs. 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 C/o hemoptysis. C/o mild dysphagia. 11/17/24: - Recently had a pacemaker implanted on 11/09/24 due to complete heart block, which was an emergency procedure. He reports feeling 100% better since the pacemaker was placed. - Scheduled for bronchoscopy on 11/20/24. - Doing well. - Cough is better. 12/26/24: - Hospitalized from 12/15-12/22/24 with pneumonia - CT C/A/P at [facility] in December 2024 is negative for mets. - C/o right sided chest pain - He will finish antibiotics on Wednesday. 01/02/25: - C/o chills. - Started radiation today - Cycle 1 chemo today. - C/o loss of appetite and weight loss. 01/08/25: - Hospitalized last week with PNA. Treated with Abx. - CT chest at [facility] on 01/02/25 showed T5 lytic lesin. Cannot exclude malignancy - On PO abx - No other complaints. 01/15/25: - C/o worsening chest pain - C/o Shortness of Breath and difficulty swallowing - C/o headache and vision changes. 01/18/25: - [facility] [facility] [place] [facility] - C/o chest pain 02/05/25: [...] tablet by mouth daily at bedtime. Ipratropium [place] (ATROVENT) 21 mcg (0.03 %) nasal spray [...] Range Status 01/24/2025 32.7 % Final Abs Latimer Date Value Ref Range Status 01/24/2025 0.65 [...] 12/15-12/22/24 with pneumonia - CT C/A/[facility] at [facility] in December 2024 is negative for mets - Right lung, bronchus intermedius, endobronchial biopsy: Squamous cell carcinoma. PD-L1 TPS 0%. - Due for cycle 1 D1 weekly carbo taxol on 01/02/25. Pt developed infusion reaction after starting Taxol infusion. - Developed sweating, hypotension, lethargy, tachycardia etc. Pt was sent to hospital. - CT chest at [facility] on 01/02/25 showed T5 lytic lesion. Cannot [...] in [address] Chip Gary [place] [address] thank you for allowing me to participate in [facility], if there are any questions or concerns please do not hesitate to contact me at the number below. I spent a total of 30 minutes on the date of the service which included preparing to see the patient, [id number] patient care, completing clinical documentation, obtaining and/or reviewing separately obtained history, performing a medically appropriate examination, counseling and educating the patient/family/caregiver, ordering medications, tests, or procedures, communicating with other HCPs (not separately reported), independently interpreting results (not separately reported), communicating results to the patient/family/caregiver, and care coordination (not separately reported). Rasheed Perez MD. Hematology/Medical Oncology [facility] [phone] CC: documented in this encounter [facility] 02-05-2025 Note [facility] 02-02-2025 Note [facility] 02-02-2025 History of Present illness Narrative Jatin is here for radiation [...] Cassia Cantu RN documented in this encounter [facility] 02-01-2025 Note [facility] 02-01-2025 History of Present illness Narrative Jatin is here for radiation therapy with continuous pulse oximetry. Pulse SpO2 Pretx 93-98 92-98% Cone beam 85-95 95-98% Beam on 92-96 94-99% Post tx 93-96 96% Patient tolerated treatment without concerns. Cassia Cantu RN documented in this encounter [facility] 01-31-2025 Note [facility] 01-31-2025 History of Present illness Narrative Radiation Oncology - On Treatment [...] concurrent chemotherapy AREA TREATED: Chest CURRENT DOSE: 3000 cGy in 15 fx PLANNED DOSE: 6000 cGy in 30 fx SUBJECTIVE: Tolerating XRT well and reports no significant changes from last week. He feels that his breathing is slightly better with continued dyspnea on exertion not requiring oxygen and feels that his cough is slightly improved and therefore sleeping better. He denies any chest pain or hemoptysis or difficulty swallowing. He does note fatigue with stable appetite and hydration and weight. EXAM: KPS: 80 General Appearance: Alert and oriented. No acute distress. Radiation dermatitis: No IMAGING/LAB RESULTS: None Treatment chart checked: Yes Patient treatment site reviewed and verified:Yes Port films reviewed and current:Yes Medications started: None ASSESSMENT/PLAN: Clinically stable. Side effects are within expected parameters. Continue radiation treatment as planned. Ezra Lizama MD documented in this encounter [facility] 01-31-2025 Note [facility] 01-31-2025 History of Present illness Narrative Jatin is here for radiation therapy with continuous pulse oximetry. Pulse SpO2 Pretx 90-94 97-99% Cone beam 71-103 99% Beam on 88-95 97-98% Post tx 90-94 99% Patient tolerated treatment without concerns. Cassia Cantu RN documented in this encounter [facility] 01-30-2025 Note [facility] 01-30-2025 History of Present illness Narrative Patient Name: Jatin Koch II [...] Patient was in a wheelchair. Treatment Plan: Trinidadian massage, effleurage/petrissage, cross fiber friction to upper trapezius, deltoids/triceps/biceps, cervical neck and lower back Care Team contacted: N/A Signature: Madison Gagnon LMT Date: January 30, 2025 Time: 2:52 PM documented in this encounter [facility] 01-30-2025 Note [facility] 01-30-2025 History of Present illness Narrative Jatin is here for radiation therapy with continuous pulse oximetry. Pulse SpO2 Pretx 89-94 99% Cone Beam 92-96 98-99% Beam on tx 88-94 96-97% Post tx 89-92 96-97% Patient tolerated treatment well with concerns. Cassia Cantu RN documented in this encounter [facility] 01-30-2025 Telephone encounter Note Faxed paperwork to [employer] @ [phone]. [facility] 01-30-2025 Miscellaneous Notes Faxed paperwork to [employer] @ [phone]. [facility] paperwork for family member has been completed and placed in folder to be signed. Oskar Freeman MA documented in this encounter [facility] 01-30-2025 Telephone encounter Note Jatin was added to the schedule for IVF Lauren B PSS [facility] 01-30-2025 Miscellaneous Notes Jatin was added to the schedule for IVF Lauren B PSS I ordered IV fluids in [place]. Thank you Mrs. Koch called this a.m. stating Jatin would like to get IV fluids today while here. Will you please place orders if you agree? Thanks Cassia Cantu RN documented in this encounter [facility] 01-30-2025 Telephone encounter Note I ordered IV fluids in [place]. Thank you [facility] 01-30-2025 Telephone encounter Note Mrs. Koch called this a.m. stating Jatin would like to get IV fluids today while here. Will you please place orders if you agree? Thanks Cassia Cantu RN [facility] 01-29-2025 History of Present illness Narrative Jatin is here for radiation therapy with continuous pulse oximetry monitoring. Pulse SpO2 Pretx 88-91 92-95% Field 1 89-94 93-95% Post tx 86-93 95% Field 2 89-90 93-97% Post tx 92 95% Patient tolerated treatment well without concerns. Cassia Cantu RN documented in this encounter [facility] 01-29-2025 Note [facility] 01-26-2025 Telephone encounter Note [place] paperwork for family member has been completed and placed in folder to be signed. Oskar Fremean MA [facility] 01-26-2025 Note [facility] 01-26-2025 History of Present illness Narrative Dr. Perez assessed urine dipstick results, no new orders at this time. States Negative for UTI . Berkley Robbins RN documented in this encounter [facility] 01-26-2025 Note HNO ID: [id number] Author: OSKAR FREEMAN MA Service: ? Author Type: [employer] Type: Progress Notes Filed: 01/26/2025 13:15 Note Text: Back office UA test performed. Results entered in [employer] and doctor notified. Oskar Freeman MA [facility] 01-26-2025 History of Present illness Narrative Back office UA test performed. Results entered in [employer] and doctor notified. Oskar Freeman MA documented in this encounter [facility] 01-26-2025 History of Present illness Narrative Patient here for radiation therapy with continuous pulse oximetry monitoring. Patient c/o lightheadedness today, worse when standing. IV fluids to be administered after radiation therapy today per Dr. Perez. Pulse SpO2 Pre tx 73-94 98-100% During Field 1 89-93 92-98% Post Field 1 65-96 89-92% Alison RT asked patient how he was and patient states he is doing well without concerns. Patient instructed to take deep breaths and SpO2 increased to 95%. During Field 2 72-97 92-96% Post tx 95 95% Patient tolerated treatment without concerns. Patient assisted to the infusion area for IV hydration. Cassia Cantu RN documented in this encounter [facility] 01-26-2025 Note [facility] 01-26-2025 Telephone encounter Note MICHAEL gautam. Thank you [facility] 01-26-2025 Miscellaneous Notes MICHAEL gautam. Thank [...] Cassia Cantu RN documented in this encounter [facility] 01-26-2025 Telephone encounter Note Jatin is [...] place hydration orders. Thanks Cassia Cantu RN [facility] 01-26-2025 History of Present illness Narrative Radiology Service Progress Note PATIENT [...] PATIENT PRESENTS WITH AN IMPLANTABLE OR ATTACHED SURVEY MANAGER: No RADIOLOGY DEPARTMENT: General X-ray: Exam(s) Completed: Chest X-Ray PERIPHERAL IV DATA: Not applicable SIGNED BY: RT Melba(R) January 26, 2025 10:53 AM documented in this encounter [facility] 01-26-2025 Note [facility] 01-26-2025 Telephone encounter Note I signed and entered blood culture. Thank you [facility] 01-26-2025 Miscellaneous Notes I signed and [...] Cassia Cantu RN documented in this encounter [facility] 01-25-2025 Telephone encounter Note Mrs. Koch [...] blood culture orders? Thanks Cassia Cantu RN [facility] 01-25-2025 Note [facility] 01-25-2025 History of Present illness Narrative Pulse and Pulse Ox monitored [...] Macy Morgan RN documented in this encounter [facility] 01-24-2025 Note [facility] 01-24-2025 History of Present illness Narrative Radiation Oncology - On Treatment [...] concurrent chemotherapy AREA TREATED: Chest CURRENT DOSE: 2000 cGy in 10 fx PLANNED DOSE: 6000 cGy in 30 fx SUBJECTIVE: Tolerating surgery well but does note continued shortness of breath with dyspnea on exertion as well as cough without hemoptysis or chest pain or difficulty swallowing. He does endorse fatigue. PHYSICAL EXAM: Area Assessed: Chest KPS: 80 General Appearance: Alert and oriented. No acute distress. Chest: No respiratory distress. IMAGING/LAB RESULTS: None TOXICITY ASSESSMENT (CTC v4.0): Fatigue: grade 1 - Fatigue relieved by rest Weight loss: grade 0 - No weight loss Nausea:Grade 0 - No Symptoms Radiation Dermatitis:grade 0 - No symptoms Dysphagia: grade 0 - No symptoms Esophageal Pain: Grade 0 - No symptoms Dyspnea: grade 1 (Shortness of breath with moderate exertion) Treatment chart checked: Yes Patient treatment site reviewed and verified:Yes Port films reviewed and current:Yes Medications started: None ASSESSMENT/PLAN: Clinically stable. Side effects are within expected parameters. Continue radiation treatment as planned. Ezra Lizama MD documented in this encounter [facility] 01-24-2025 Note HNO ID: [id number] Author: CHARLOTTE BUTLER RN Service: ? Author Type: Registered Nurse Type: Progress Notes Filed: 01/24/2025 16:46 Note Text: ANC 0.36 Dr Perez aware orders will continue to monitor Charlotte Butler RN [facility] 01-24-2025 History of Present illness Narrative ANC 0.36 Dr Perez aware orders will continue to monitor Charlotte Butler RN documented in this encounter [facility] 01-24-2025 Note [facility] 01-24-2025 History of Present illness Narrative Pulse and Pulse Ox Monitored during radiation treatment Pre Tx pulse 87 pulse ox 98% During Cone Beam Pulse 87 Pulse Ox 96% After Cone Beam Pulse 79 Pulse Ox 95% Beam on Pulse 80-86 pulse ox 95-96% Post Tx Pulse 82 Pulse ox 96% Macy Morgan RN documented in this encounter [facility] 01-24-2025 Telephone encounter Note Pt here for radiation and c/o extreme weakness and some increased Shortness of Breath today. He is very fatigued and per spouse, sleeping a lot. VS obtained and 102/71, Pulse 80 Pulse ox 97% on RA. Pt is interested in IV Fluids today if provider is willing to order. Thank you Macy Mogran RN [facility] 01-24-2025 Miscellaneous Notes Pt here for radiation and c/o extreme weakness and some increased Shortness of Breath today. He is very fatigued and per spouse, sleeping a lot. VS obtained and 102/71, Pulse 80 Pulse ox 97% on RA. Pt is interested in IV Fluids today if provider is willing to order. Thank you Macy Morgan RN documented in this encounter [facility] 01-23-2025 Note [facility] 01-23-2025 History of Present illness Narrative Patient Name: Jatin Koch II [...] is tolerable Treatment Plan: slow Firm pressure, Trinidadian massage effleurage/petrissage, cross fiber friction to upper/lower trapezius, cervical neck/occipital ridge, bilateral rhomboids major/minor, lower back Care Team contacted: N/A Signature: Madison Gagnon LMT Date: January 23, 2025 Time: 3:15 PM documented in this encounter [facility] 01-23-2025 Note [facility] 01-23-2025 History of Present illness Narrative Pulse monitored during radiation treatment. Pre Tx Pluse 101 Pulse Ox 96% After Cone beam Pulse 74 Pulse ox 98% Beam on pulse 74-102 & pulse ox 97-98% Post Tx Pluse 93 Pulse Ox 96% Macy Morgan RN documented in this encounter [facility] 01-23-2025 Note [facility] 01-23-2025 History of Present illness Narrative PALLIATIVE MEDICINE CONSULT NOTE SERVICE DATE: January 23, 2025 IDENTIFICATION AND INTRODUCTION: Jatin Koch II is a 64 year old male This visit took place In Ambulatory [facility] Facility Consultation requested by Rasheed Braga [...] pill burden REVIEW OF SYSTEMS: Modified ESAS ([place] Symptom Assessment Scale) Information Provided By: Patient [...] suspicious activity was identified. 01/23/2025 by Sheila Freeman, BANQUET DIRECTOR, FORENSIC MEDICAL EXAMINER.DEPARTMENT OPERATIONS MANAGER Assessment & Plan (Z51.5) Palliative care by specialist (primary encounter diagnosis) Palliative Care by specialist - Introduced philosophy of palliative medicine - Discussed services offered by [employer] [facility] - Provided support to family (C34.31) Malignant [...] tablet po daily (J34.89) Rhinorrhea - Ipratropium [place] (ATROVENT) 21 mcg (0.03 %) nasal spray BID - stop benadryl Some elements copied from Oncology note on 01/18/25, the elements have been updated and all reflect current decision making from today, 01/23/2025. I spent a total of 45 minutes on the date of the service which included preparing to see the patient, [id number] patient care, completing clinical documentation, obtaining and/or reviewing separately obtained history, performing a medically appropriate examination, counseling and educating the patient/family/caregiver, ordering medications, tests, or procedures, communicating with other HCPs (not separately reported), independently interpreting results (not separately reported), communicating results to the patient/family/caregiver, and care coordination (not separately reported). 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 While every effort was made to correct voice recognition errors, kindly be aware that some errors may occasionally occur. documented in this encounter [facility] 01-23-2025 Telephone encounter Note Palliative Medicine Care Coordination New Patient Note Patient identified by name and date of : Yes Spoke with Granicus message Nurse introduced self and role of Regional Service Manager in Palliative Medicine. Reviewed contact sheet information and on-call process. Nurse educated patient on medication refill process. Nurse encouraged patient to call with any questions/concerns/symptom related issues. Ricardo Alva RN [facility] 01-23-2025 Miscellaneous Notes Palliative Medicine Care Coordination New Patient Note Patient identified by name and date of : Yes Spoke with mychart message Nurse introduced self and role of Regional Service Manager in Palliative Medicine. Reviewed contact sheet information and on-call process. Nurse educated patient on medication refill process. Nurse encouraged patient to call with any questions/concerns/symptom related issues. Ricardo Alva RN documented in this encounter [facility] 01-23-2025 Instructions Sheila Freeman APRN.DEPARTMENT OPERATIONS MANAGER - 01/23/2025 8:52 AM EDT Sheila Freeman CNP Department of Palliative and Supportive Care Palliative Care - Specialty services in symptom management and support For questions or prescription refills, call: [phone] Wednesday - Wednesday 9AM-5PM MARIELLA Estrella, RN - Regional Service Manager Please call 3-5 days in advance for medication refills Evenings, Weekends, Holidays: [phone] (ask for palliative medicine on-call provider) For appointments, cancellations or reschedule, call: [phone] documented in this encounter [facility] 01-22-2025 Note [facility] 01-22-2025 History of Present illness Narrative Pulse and Pulse Ox monitored for radiation treatment. Pre Tx: Pulse 107 Pulse Ox 96% RA During Cone Beam : Pulse 72 Pulse Ox 100 Beam on: Pulse 95-100, Pulse Ox 94-98% Post Tx Pulse 95 Pulse Ox 96%. Macy Morgan RN documented in this encounter [facility] 01-19-2025 Note [facility] 01-18-2025 Note [facility] 01-18-2025 History of Present illness Narrative Radiation Oncology - On Treatment [...] Ezra Lizama MD documented in this encounter [facility] 01-18-2025 Note [facility] 01-18-2025 Note [facility] 01-17-2025 Telephone encounter Note Records from patients [facility] ER visit have been scanned in. Charlotte Jackson [facility] 01-17-2025 Miscellaneous Notes Records from patients [facility] ER visit have been scanned in. Charlotte Jackson OK fine. Thank you FYI: Message received from pt's spouse that pt was diagnosed w/ pneumonia. Will be admitted to [facility] for IV antibiotics. Jimmy: Please scan pt's hospital records. Thanks! Ileana Bear, RN documented in this encounter [facility] 01-15-2025 Telephone encounter Note [place] fine. Thank you [facility] 01-15-2025 Telephone encounter Note FYI: Message received from pt's spouse that pt was diagnosed w/ pneumonia. Will be admitted to [facility] for IV antibiotics. Jimmy: Please scan pt's hospital records. Thanks! Ileana Bear RN [facility] Work Phone: 01-15-2025 Instructions Rasheed Perez MD - 01/15/2025 11:49 AM EDT Please schedule an appt after the hospital discharge. documented in this encounter [facility] 01-15-2025 Radiology Diagnostic study note [facility] [place] [address] CT Scan Report Signed Patient: Jatin Koch II MR#: [id number] : 1960 Acct:[id number] Age/Sex: 64 / M ADM Date: 5 Loc: ER Room: Type: [facility] ER Attending Dr: Copies to: Angelica Lawler [...] Lainez M.D. 01/15/2025 11:33 AM Dictation Location: [id number]-24 Transcribed By: TANESHA 01/15/25 1133 Dictated By: Jose Antonio Lainez II, MD 01/15/25 1124 Signed By: 01/15/25 113 [facility] Work Phone: 01-15-2025 History of Present illness Narrative Images from the original note were not included. PATIENT NAME: Jatin Koch II CLINIC NO.: [id number] ATTENDING PHYSICIAN: Rasheed Perez MD DATE OF SERVICE: 01/15/[address] Chip Carbajal [address] [place] [address] thank you for referring Jatin Koch II [...] pk/day for 40yrs. 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 C/o hemoptysis. C/o mild dysphagia. 11/17/24: - Recently had a pacemaker implanted on 11/09/24 due to complete heart block, which was an emergency procedure. He reports feeling 100% better since the pacemaker was placed. - Scheduled for bronchoscopy on 11/20/24. - Doing well. - Cough is better. 12/26/24: - Hospitalized from 12/15-12/22/24 with pneumonia - CT C/A/P at [facility] in December 2024 is negative for mets. - C/o right sided chest pain - He will finish antibiotics on Wednesday. 01/02/25: - C/o chills. - Started radiation today - Cycle 1 chemo today. - C/o loss of appetite and weight loss. 01/08/25: - Hospitalized last week with PNA. Treated with Abx. - CT chest at [facility] on 01/02/25 showed T5 lytic lesin. Cannot [...] Range Status 01/08/2025 4.7 % Final Abs Latimer Date Value Ref Range Status 01/08/2025 0.74 [...] 12/15-12/22/24 with pneumonia - CT C/A/P at [facility] in December 2024 is negative for mets - Right lung, bronchus intermedius, endobronchial biopsy: Squamous cell carcinoma. PD-L1 TPS 0%. - Due for cycle 1 D1 weekly carbo taxol on 01/02/25. Pt developed infusion reaction after starting Taxol infusion. - Developed sweating, hypotension, lethargy, tachycardia etc. Pt was sent to hospital. - CT chest at [facility] on 01/02/25 showed T5 lytic lesion. Cannot [...] [address] Chip Carbajal [address] [facility] [id number] thank you for allowing me to participate in [facility], if there are any questions or concerns please do not hesitate to contact me at the number below. I spent a total of 30 minutes on the date of the service which included preparing to see the patient, [id number] patient care, completing clinical documentation, obtaining and/or reviewing separately obtained history, performing a medically appropriate examination, counseling and educating the patient/family/caregiver, ordering medications, tests, or procedures, communicating with other HCPs (not separately reported), independently interpreting results (not separately reported), communicating results to the patient/family/caregiver, and care coordination (not separately reported). Rasheed Perez MD. Hematology/Medical Oncology [facility] [place] [phone] CC: documented in this encounter [facility] 01-15-2025 Note [facility] 01-12-2025 Note [facility] 01-12-2025 History of Present illness Narrative Jatin is here for radiation therapy with continuous pulse oximetry. Pulse SpO2 Pre tx 99-100 97 Tx 76-102 97-98 Post tx 97 97 Patient tolerated treatment well without concerns. Cassia Cantu RN documented in this encounter [facility] 01-11-2025 Telephone encounter Note CYCLE 1/DAY 1 POST TREATMENT CALL Today's date: January 11, 2025 Treatment Regimen: cisplatin, UNLEAVENED DOUGH MIXER-16 C1D1 Date: 01/08/25 Called patient to follow-up [...] after hours number protocol. Blanquita Hargrove RN [facility] Work Phone: 01-11-2025 Miscellaneous Notes CYCLE 1/DAY 1 POST TREATMENT CALL Today's date: January 11, 2025 Treatment Regimen: cisplatin, UNLEAVENED DOUGH MIXER-16 C1D1 Date: 01/08/25 Called patient to follow-up [...] Blanquita Hargrove RN documented in this encounter [facility] 01-11-2025 Note [facility] 01-11-2025 History of Present illness Narrative Jatin is here for radiation therapy with continuous pulse oximetry. Pulse SpO2 Pre tx 83 98 Tx 83-6 94-99 Post tx 89 98 Patient tolerated treatment well. C/o slight lightheadedness upon sitting up post tx. When symptom subsided, patient assisted to waiting room with Rolator. Patient denies needs at this time. Cassia Cantu RN documented in this encounter [facility] 01-10-2025 Note [facility] 01-10-2025 History of Present illness Narrative Radiation Oncology - On Treatment [...] Ezra Lizama MD documented in this encounter [facility] 01-10-2025 Note HNO ID: [id number] Author: MACY MORGAN RN Service: ? Author Type: Registered Nurse Type: Progress Notes Filed: 01/10/2025 12:39 Note Text: Pulse and Pulse ox monitored during radiation treatment. Macy Morgan RN [facility] 01-10-2025 History of Present illness Narrative Pulse and Pulse ox monitored during radiation treatment. Macy Morgan RN documented in this encounter [facility] 01-09-2025 Note [facility] [facility] History of Present illness Narrative Jatin is here for radiation therapy with continuous pulse oximetry during treatment. Pulse SpO2 Pretx 79-86 97% Tx 78-81 94-95% Post tx 77 95% Patient tolerated treatment without concerns. Cassia Cantu RN documented in this encounter [facility] 01-09-2025 Telephone encounter Note Patient previously [...] tomorrow per Dr. Perez and Lianna Lucas, [facility] discussion. Allergies updated to include polysorbate 80 and chremophor. [facility] 01-09-2025 Miscellaneous Notes Patient previously had [...] tomorrow per Dr. Perez and Lianna Lucas, [facility] discussion. Allergies updated to include polysorbate 80 and chremophor. documented in this encounter [facility] 01-08-2025 Note [facility] 01-08-2025 History of Present illness Narrative Jatin is here for radiation with continuous pulse oximetry during treatment. Pulse SpO2 Pretx 81-91 98% During 85-89 98% Post tx 83-87 98% Patient c/o lightheadedness when sitting up post treatment. BP 96/64. Patient assisted to dressing after he said lightheadedness improved. Patient denies further needs. Cassia Cantu RN documented in this encounter [facility] 01-08-2025 Note HNO ID: [id number] Author: Oswaldo GHOSH MD Service: ? Author Type: Physician Type: Progress Notes Filed: 01/08/2025 16:27 Note Text: Films reviewed [facility] 01-08-2025 History of Present illness Narrative Films reviewed documented in this encounter [facility] 01-08-2025 Note [facility] 01-08-2025 History of Present illness Narrative 1410-pt reports feeling lightheaded and [...] etoposide phosphate tomorrow per Dr. Perez and iLanna Lucas, [facility] discussion. Pt reaction to Etoposide, see [...] to remove and tx nurse informed. Bee Yamile, RN documented in this encounter [facility] 01-08-2025 Note [facility] 01-08-2025 History of Present illness Narrative SOCIAL WORK FOLLOW UP NOTE: [...] assess for AD's. documented in this encounter [facility] 01-08-2025 Note [facility] 01-08-2025 Note Addended by: RASHEED SEGUNDO on: 01/08/2025 01:02 PM Modules accepted: Orders [facility] 01-08-2025 Miscellaneous Notes Addended by: RASHEED PEREZ on: 01/08/2025 01:02 PM Modules accepted: Orders documented in this encounter [facility] 01-08-2025 Miscellaneous Notes Pts calls office today regarding episode of lower BP reading at [facility]. See previous chart notes from 12/28/24 for further details and msg thread documented in this encounter [facility] 01-08-2025 Telephone encounter Note Pts calls office today regarding episode of lower BP reading at [facility]. See previous chart notes from 12/28/24 for further details and msg thread [facility] 01-08-2025 Note [facility] 01-08-2025 Note [facility] 01-08-2025 Instructions Rasheed Perez MD - 01/08/2025 10:08 AM EDT Treatment this week and next week F/u in 1 week documented in this encounter [facility] 01-08-2025 Note [facility] 01-08-2025 History of Present illness Narrative ONCOLOGY PATIENT EDUCATION NOTE TOPIC: Chemotherapy, Medications: Cisplatin, UNLEAVENED DOUGH MIXER-16 with radiation patient here today for education [...] Blanquita Hargrove RN documented in this encounter [facility] 01-08-2025 Note [facility] 01-08-2025 History of Present illness Narrative Images from the original note were not included. PATIENT NAME: Jatin Koch [facility] NO.: [id number] ATTENDING PHYSICIAN: Rasheed Perez MD DATE OF SERVICE: 01/08/[address] Chip Carbajal [address] [place] [address] thank you for referring Jatin Reyesmaryjane ANSARI for an opinion regarding Lung cancer. 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 C/o hemoptysis. C/o mild dysphagia. 11/17/24: - Recently had a pacemaker implanted on 11/09/24 due to complete heart block, which was an emergency procedure. He reports feeling 100% better since the pacemaker was placed. - Scheduled for bronchoscopy on 11/20/24. - Doing well. - Cough is better. 12/26/24: - Hospitalized from 12/15-12/22/24 with pneumonia - CT C/A/P at [facility] in December 2024 is negative for mets. - C/o right sided chest pain - He will finish antibiotics on Wednesday. 01/02/25: - C/o chills. - Started radiation today - Cycle 1 chemo today. - C/o loss of appetite and weight loss. 01/08/25: - Hospitalized last week with PNA. Treated with Abx. - CT chest at [facility] on 01/02/25 showed T5 lytic lesin. Cannot [...] Range Status 01/08/2025 4.7 % Final Abs Latimer Date Value Ref Range Status 01/08/2025 0.74 [...] 12/15-12/22/24 with pneumonia - CT C/A/P at [facility] in December 2024 is negative for mets [...] - Continue radiation - CT chest at [facility] on 01/02/25 showed T5 lytic lesion. Cannot exclude malignancy. Monitor for now. - Blood work today is unremarkable - All his questions answered in detail. - F/u in [address] Chip Carbajal [address] [place] [address] thank you for allowing me to participate in Jatin Koch II care, if there are any questions or concerns please do not hesitate to contact me at the number below. I spent a total of 30 minutes on the date of the service which included preparing to see the patient, [id number] patient care, completing clinical documentation, obtaining and/or reviewing separately obtained history, performing a medically appropriate examination, counseling and educating the patient/family/caregiver, ordering medications, tests, or procedures, communicating with other HCPs (not separately reported), independently interpreting results (not separately reported), communicating results to the patient/family/caregiver, and care coordination (not separately reported). Rasheed Perez MD. Hematology/Medical Oncology [place] [phone] CC: documented in this encounter [facility] 01-08-2025 Telephone encounter Note Voicemail received from pt's stating she has notification on her phone that pt has an appointment for today as well as tomorrow. asking on message if pt needs to come in today or not. Call placed to pt's 3 times and detailed messages left regarding pt's appointments today and tomorrow. Blanqutia Hargrove RN [facility] Work Phone: 01-08-2025 Miscellaneous Notes Voicemail received from pt's stating she has notification on her phone that pt has an appointment for today as well as tomorrow. asking on message if pt needs to come in today or not. Call placed to pt's 3 times and detailed messages left regarding pt's appointments today and tomorrow. Blanquita Hargrove RN documented in this encounter [facility] 01-05-2025 Progress note Note Date/Time January 05, 2025 11:46am [facility] [address] [place] [address] Hospitalist Progress Note Signed Patient: Jatin Koch II MR#: [id number] : 1960 Acct:[id number] Age/Sex: 64 / M Adm Date: 5 Loc: 4 Room: 2Q3594-4 Type: ADM IN Attending Dr: Norah Whittaker [...] Reaction (Verified 01/02/25 13:47) Unable to urinate Dorado pollen Allergy (Uncoded 08/11/18 15:46) Eyes swell [...] 1. Pneumonia, suspect bacterial Recently hospitalized at [facility], discharged with Augmentin and doxycycline Unable to [...] signed by Norah Whittaker MD> 01/05/25 1146 [facility] Work Phone: 1(732) 889-572307-25-2025 Progress note Author Norah Whittaker [facility] Note Date/Time January 05, 2025 11:4 4am [facility] [address] [place] [address] Hospitalist Progress Note Signed Patient: Jatin Koch II MR#: [id number] : 1960 Acct:[id number] Age/Sex: 64 / M Adm Date: 5 Loc: Room: [address] [place] [address] Type: ADM IN Attending Dr: Norah Whittaker [...] Reaction (Verified 01/02/25 13:47) Unable to urinate Dorado pollen Allergy (Uncoded 08/11/18 15:46) Eyes swell [...] 1. Pneumonia, suspect bacterial Recently hospitalized at [facility], discharged with Augmentin and doxycycline Unable to [...] signed by Norah Whittaker MD> 01/05/25 1144 [facility] Work Phone: 1(436) 304-936907-25-2025 Telephone encounter Note* Telephone Encounter - Carolina Perdue - 01/05/2025 1:42 PM EDT Patient's appointment to start for Wednesday has been adjusted and day 2-5 added around his XRT times.Unable to assign referral possibly because the start date is after the scheduled date on infusion? Nurse Ileana @ [facility] notified of new time arrival for Wednesday. Also added education for Blanquita on Wednesday as well. Carolina Perdue [facility]07-25-2025 Miscellaneous Notes* Telephone Encounter - Carolina Perdue - 01/05/2025 1:42 PM EDT Patient's appointment to start for Wednesday has been adjusted and day 2-5 added around his XRT times.Unable to assign referral possibly because the start date is after the scheduled date on infusion? Nurse Ileana @ [facility] notified of new time arrival for Wednesday. [...] 2 hour tx d2-5. Thanks, Eloy Lucas RP * Telephone Encounter - Rasheed Perez MD - 01/05/2025 12:35 PM EDT Can we do cisplatin 50mg/m2 day 1,8,29,36 and etoposide 50mg/m2 day 1-5 and 29- 33 ? Thank you * Telephone Encounter - Blanquita Hargrove RN - 01/05/2025 12:27 PM EDT Tentative plan is for pt to be discharged tomorrow from [facility]. Pt is scheduled for radiation new start [...] 01/05/2025 12:12 PM EDT Call placed to Cinda pt's bedside nurse who states pt was admitted with near syncope. Currently on IV zosyn, awaiting sputum culture to come back. Blood cultures were negative. Pt's WBC is 12.6, hgb 8.8, plt 251. Pt will most likely be discharged home tomorrow. Blanquita Hargrove RN [facility] Telephone encounter Note * Telephone Encounter - Eloy Lucas RPh - 01/05/2025 1:28 PM EDT Added Magnesium 1g before and after. Please review. Thanks, Eloy Lucas RPh [facility]07-25-2025 Telephone encounter Note* Telephone Encounter - Rasheed Perez MD - 01/05/2025 1:22 PM EDT Can we add magnesium also to cisplatin infusion ? Thank you [facility]07-25-2025 Telephone encounter Note* Telephone Encounter - Eloy Lucas RPh - 01/05/2025 1:[address] Perez: Plan entered - please review for accuracy. We would have to start this regimen jefferson Wednesday however, since the etop is daily x5. PSS: please attach new referral and schedule 4 hour tx d1 then 2 hour tx d2-5. Thanks, Eloy Lucas RP [facility]07-25-2025 Telephone encounter Note* Telephone Encounter - Rasheed Perez MD - 01/05/2025 12:35 PM EDT Can we do cisplatin 50mg/m2 day 1,8,29,36 and etoposide 50mg/m2 day 1-5 and 29- 33 ? Thank you [facility]07-25-2025 Telephone encounter Note* Telephone Encounter - Blanquita Hargrove RN - 01/05/2025 12:27 PM EDT Tentative plan is for pt to be discharged tomorrow from [facility]. Pt is scheduled for radiation new start on Wednesday at 1130. Pt did not receive his chemo treatment on Wednesday due to an allergic reaction to taxol 9 mg in. What will the plan be for concurrent chemotherapy moving forward? Should he start chemo on Wednesday when he is here for radiation? Please advise Blanquita Hargrove RN [facility] Work Phone: 1(630) 255-191007-25-2025 Telephone encounter Note* Telephone Encounter - Blanquita Hargrove RN - 01/05/2025 12:22 PM EDT CYCLE 1/DAY 1 POST TREATMENT CALL Today's date: January 05, 2025 Treatment Regimen: taxol, carbo C1D1 Date: 01/02/25 Pt received 9 mg of dose of taxol and had an allergic reaction. Pt was taken by ambulance from our office to [facility]. Pt did not receive remaining dose of taxol or carboplatin. [facility] Blanquita Hargrove RN [facility] Work Phone: 1([phone]) 426-3371174632-22-0215 Miscellaneous Notes* Telephone Encounter - Blanquita Hargrove RN - 01/05/2025 12:22 PM EDT CYCLE 1/DAY 1 POST TREATMENT CALL Today's date: January 05, 2025 Treatment Regimen: taxol, carbo C1D1 Date: 01/02/25 Pt received 9 mg of dose of taxol and had an allergic reaction. Pt was taken by ambulance from our office to [facility]. Pt did not receive remaining dose of taxol or carboplatin. [facility] Blanquita Hargrove RN [facility] Telephone encounter Note * Telephone Encounter [...] be discharged home tomorrow. Blanquita Hargrove RN [facility]07-25-2025 [place] [address] Hospitalist Progress Note Signed Patient: Jatin Koch II MR#: [id number] : 1960 Acct:[id number] Age/Sex: 64 / M Adm Date: 5 Loc: Room: [id number] Type: ADM IN Attending Dr: Norah Whittaker [...] Reaction (Verified 01/02/25 13:47) Unable to urinate Dorado pollen Allergy (Uncoded 08/11/18 15:46) Eyes swell shut;sneezing Active Meds: Active Medications Generic Name Dose Route Start Last Admin Trade Name Curt PRN Reason Stop Dose Admin Acetaminophen 650 [...] 1. Pneumonia, suspect bacterial Recently hospitalized at [facility], discharged with Augmentin and doxycycline Unable to [...] MD 01/05/25 1144 Signed By: 01/05/25 1146 [facility]07-25-2025 [place] [address] Hospitalist Progress Note Signed Patient: Jatin Koch II MR#: [id number] : 1960 Acct:[id number] Age/Sex: 64 / M Adm Date: 5 Loc: Room: [address] [place] [address] Type: ADM IN Attending Dr: Norah Whittaker [...] 137/65 99 Room Air 01/04/25 12:26 01/04/25 12:01/04/25 12:26 01/04/25 12:01/04/25 12:01/04/25 12:26 Objective Lab [...] Reaction (Verified 01/02/25 13:47) Unable to urinate Dorado pollen Allergy (Uncoded 08/11/18 15:46) Eyes swell [...] 1. Pneumonia, suspect bacterial Recently hospitalized at [facility], discharged with Augmentin and doxycycline Unable to [...] MD 01/04/25 1416 Signed By: 01/05/25 1144 [facility]07-24-2025 Telephone encounter Note* Telephone Encounter - Macy Morgan RN - 01/04/2025 11:16 AM EDT was notified of plan. Macy Morgan RN [facility]07-24-2025 Miscellaneous Notes* Telephone Encounter - Macy Morgan RN - 01/04/2025 11:16 AM EDT was notified of plan. Macy Morgan RN * Telephone Encounter - [...] advise. Macy Morgan RN documented [facility] encounter[facility] Telephone encounter Note * Telephone Encounter - Jazlyn Hyatt RT(R) - 01/04/2025 10:34 AM EDT 1130 OTV for new start on 01/08/25 [facility] Work Phone: [phone] Telephone encounter Note* Telephone Encounter - Macy Morgan RN - 01/04/2025 10:18 AM EDT Can you please give me time for Wednesday and I will notify pts ? Thank you! Macy Morgan RN [facility]07-24-2025 Telephone encounter Note* Telephone Encounter - Jazlyn Hyatt RT(R) - 01/04/2025 10:10 AM EDT If pt is d/c today we can arrange a new start time for Wednesday Thanks RT Yonny(R)(T) [facility]07-24-2025 Telephone encounter Note* Telephone Encounter - Macy Morgan RN - 01/04/2025 9:53 AM EDT Pts spouse called in. They are hopeful that pt will be discharged later today. She is wondering when pt should come in to start radiation? Dr Ghosh- please advise. Macy Morgan, RN [facility]07-23-2025 Telephone encounter Note* Telephone Encounter - Victoria Pack - 01/03/2025 8:13 AM EDT Patient is admitted on 4P at [facility]. He was sent from here by [facility] yesterday. Records scanned. [facility]07-23-2025 Miscellaneous Notes* Telephone Encounter - Ivelisse Clements Victoria Fowler - 01/03/2025 8:13 AM EDT Patient is admitted on 4P at [facility]. He was sent from here by squad yesterday. Records scanned. documented in [facility] encounter[facility] Evaluation note* Diagnosis Onset Date Resolution Status Admit Date History of lung cancer acute Ju ly 2024 5:55pm Pneumonia acute January 02 5:55pm Syncope acute January 02 5:55pm [facility] Work Phone: 1(175) 436-765707-22-2025 Evaluation note* Diagnosis Onset Date Resolution Status Admit Date History of lung cancer resolved Ju 2024 5:55pm Pneumonia resolved January 02 5:55pm Syncope resolved January 02 5:55pm Lung cancer acute January 15, 025 12:25pm Pneumonia acute January 15 12:25pm [facility] Work Phone: 1(351) [phone] Evaluation note* Diagnosis Onset Date Resolution Status Admit Date History of lung cancer resolved Ju ly 2024 5:55pm Pneumonia resolved January 02 5:55pm Syncope resolved January 02 5:55pm Anxiety acute January 15 12:25pm Cancer associated pain acute Au 2024 12:25pm Lung abscess acute January 15, 2025 12:25pm Lung cancer acute January 15, 2 025 12:25pm Pneumonia acute January 15 12:25pm [facility] Work Phone: 1(961) 494-996807-22-2025 [facility] [place] [address] [place] [address] CT Scan Report Signed Patient: Jatin Koch II MR#: [id number] : 1960 Acct:[id number] Age/Sex: 64 / M ADM Date: 5 Loc: Room: [address] [place] [address] Type: ADM IN Attending Dr: Norah Whittaker [...] Mccann M.D. 01/02/2025 7:42 PM Dictation Location: [place] [address] Transcribed By: [facility] 01/02/251941 Dictated By: Kirk Mccann DO 01/02/251935 Signed By: 01/02/251941 [facility]07-22-2025 History and physical note Author Norah Whittaker [facility] Note Date/Time January 02, 2025 5:39 pm [facility] [address] [place] [address] Hospitalist H&P Signed Patient: Jatin Koch II MR#: [id number] : 1960 Acct:[id number] Age/Sex: 64 / M Adm Date: 5 Loc: ER Room: Type: [facility] ER Attending Dr: Copies to: MINERVA Dykes CNP, MD~ HPI DATE OF EXAMINATION: 01/02/25 CHIEF COMPLAINT: Dizziness HISTORY OF PRESENT ILLNESS: 64 years old male who was diagnosed with a right lower lobe lung cancer, followswith [facility], presenting with worsening of shortness of breath [...] 10 days ago he was admitted at [facility] where he was treated for pneumonia and [...] of consolidation with atelectasisor small possible effusions [facility] Medical History (Updated 01/02/25 @ [...] List clean-up per request of Phys. EHR [facility] Surgical History History of carpal tunnel release of both wrists Problem List clean-up per request of Phys. EHR Cmte History of cystoscopy Problem List clean-up per request of Phys. EHR [facility] Family History Sister Kidney disease [...] Reaction (Verified 01/02/25 13:47) Unable to urinate Dorado pollen Allergy (Uncoded 08/11/18 15:46) Eyes swell [...] % (Auto) 2.3 % (.) 01/02/25 14:20 Latimer % (Auto) 2.4 % (.) 01/02/25 14:20 Eos % (Auto) 1.0 % (.) 01/02/25 14:20 Baso % (Auto) 0.4 % (.) 01/02/25 14:20 Nucleat RBC Rel Count 0.0 /100 WBC (0-0.5) 01/02/25 14:20 Neut # (Auto) 14.5 x10E3/uL (1.8-7.7) H 01/02/25 14:20 Lymph # (Auto) 0.4 x10E3/uL (1.00-4.8) L 01/02/25 14:20 Latimer # (Auto) 0.4 x10E3/uL (0.0-0.8) 01/02/25 14:20 [...] 1. Pneumonia, suspect bacterial Recently hospitalized at [facility], discharged with Augmentin and doxycycline For now [...] Norah Whittaker MD 01/02/25 1729 Signed By: <Electronically signed by Norah Whittaker MD> 01/02/25 173 [facility] Work Phone: 1(476) [phone] [place] [address] Hospitalist H&P Signed Patient: Jatin Koch II MR#: [id number] : 1960 Acct:[id number] Age/Sex: 64 / M Adm Date: 5 Loc: ER Room: Type: [facility] ER Attending Dr: Copies to: MINERVA Dykes DEPARTMENT OPERATIONS MANAGER Norah Whittaker MD~ HPI DATE OF EXAMINATION: 01/02/25 CHIEF COMPLAINT: Dizziness HISTORY OF PRESENT ILLNESS: 64 years old male who was diagnosed with a right lower lobe lung cancer, followswith [facility], presenting with worsening of shortness of breath [...] 10 days ago he was admitted at [facility] where he was treated for pneumonia and [...] of consolidation with atelectasisor small possible effusions [facility] Medical History (Updated 01/02/25 @ [...] clean-up per request of Phys. EHR Cmte Surgical History History of carpal tunnel release of both wrists Problem List clean-up per request of Phys. EHR Cmte History of cystoscopy Problem List clean-up per request of Phys. EHR Cmte Family History Sister Kidney disease Father Hypertension Mother Arthritis Social History Smoking Status: Former smoker Tobacco Type: cigarettes Substance Use Type: None Social History Comments: son lives with them Meds Medications and Allergies Allergies codeine Allergy (Verified 01/02/25 13:47) Chills sulfamethoxazole (From Bactrim) Adverse Reaction (Verified 01/02/25 13:47) Unable to urinate trimethoprim (From Bactrim) Adverse Reaction (Verified 01/02/25 13:47) Unable to urinate Dorado pollen Allergy (Uncoded 08/11/18 15:46) Eyes swell [...] % (Auto) 2.3 % (.) 01/02/25 14:20 Latimer % (Auto) 2.4 % (.) 01/02/25 14:20 Eos % (Auto) 1.0 % (.) 01/02/25 14:20 Baso % (Auto) 0.4 % (.) 01/02/25 14:20 Nucleat RBC Rel Count 0.0 /100 WBC (0-0.5) 01/02/25 14:20 Neut # (Auto) 14.5 x10E3/uL (1.8-7.7) H 01/02/25 14:20 Lymph # (Auto) 0.4 x10E3/uL (1.00-4.8) L 01/02/25 14:20 Latimer # (Auto) 0.4 x10E3/uL (0.0-0.8) 01/02/25 14:20 [...] 1. Pneumonia, suspect bacterial Recently hospitalized at [facility], discharged with Augmentin and doxycycline For now [...] MD 01/02/25 1729 Signed By: 01/02/25 1739 [facility]07-22-2025 Radiology Diagnostic study note [facility] Main [place] [address] [place] [address] CT Scan Report Signed Patient: Jatin Koch II MR#: [id number] : 1960 Acct:[id number] Age/Sex: 64 / M ADM Date: 5 Loc: ER Room: Type: [facility] ER Attending Dr: Copies to: Dominic Ryder [...] Mccann M.D. 01/02/2025 3:04 PM Dictation Location: [place] [address] Transcribed By: [facility] 01/02/25 1504 Dictated By: Kirk Mccann DO 01/02/25 1503 Signed By: 01/02/25 1504 [facility]07-22-2025 [facility] History of Present illness Narrative* AnilTomy mckenzieianne, RN - 01/02/2025 2:51 PM EDT 1303 [...] do. SpO2 increased to 93%. and Mic Salcedo, BANQUET DIRECTOR arrive chairside after Dr. LUNSFORD called. New [...] unlabored on O2 via[place]; care transferred to [facility] and pt leaves for [facility] at this time. Susanne Francis, RN documented in this encounterJ[facility] Instructions* Patient Instructions* Rasheed Perez MD - 01/02/2025 11:11 AM EDT Treatment today and next week Refer to palliative care F/u in 1 week documented in this encounter[facility] History of Present illness Narrative* Rasheed Perez MD - 01/02/2025 10:58 AM EDT Images from the original note were not included. PATIENT NAME: Jatin Koch II CLINIC NO.: [id number] ATTENDING PHYSICIAN: Rasheed Perez MD DATE OF SERVICE: 01/02/25 Dear Dr. Chip Carbajal [address] [place] [address] thank you for referring Jatin Koch II [...] pk/day for 40yrs. 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 C/o hemoptysis. C/o mild dysphagia. 11/17/24: - Recently had a pacemaker implanted on 11/09/24 due to complete heart block, which was an emergencyprocedure. He reports feeling 100% better since the pacemaker was placed. - Scheduled for bronchoscopy on 11/20/24. - Doing well. - Cough is better. 12/26/24: - Hospitalized from 12/15-12/22/24 with pneumonia - CT C/[facility] at [facility] December 2024 is negative for mets. [...] Range Status 01/02/2025 4.6 % Final Abs Latimer Date Value Ref Range Status 01/02/2025 0.63 [...] 12/15-12/22/24 with pneumonia - CT C/A/P at [facility] in December 2024 is negative for mets [...] discharge from hospital. Dear Dr. Chip Carbajal [address] [place] [address] thank you for allowing me to participate in Jatin Koch II care, if there are any questions or concerns please do not hesitate to contact me at the number below. I spent a total of 30 minutes on the date of the service which included preparing to see the patient, [id number] patient care, completing clinical documentation, obtaining and/or reviewing separately obtained history, performing a medically appropriate examination, counseling and educating the pat ient/family/caregiver, ordering medications, tests, or procedures, communicating with other HCPs (not separately reported), independently interpreting results (not separately reported), communicatingresults to the patient/family/caregiver, and care coordination (not separately reported). Rasheed Perez MD. Hematology/Medical Oncology [place] [phone] CC: documented in this encounterJ.W. [facility]07-15-2025 NoteDunlap [facility]07-15-2025 History of Present illness Narrative* Madison Gagnon [...] big smile on his face. Treatment Plan: Trinidadian massage, medium pressure, effleurage/petrissage, cross fiber friction, trigger point therapy to upper trapezius and mid-lower back. Myofascial release to cervical neck Care Team contacted: N/A Signature: Madison Gagnon LMT Date: December 26, 2024 Time: 3:13 PM documented in this encounterJ.W. Ruby [facility] Hospital07-15-2025 Telephone encounter Note * Telephone Encounter - Ileana Bear RN - 12/26/2024 2:41 PM EDT Pt notified and verbalizes understanding. Ileana Bear RN [facility] Work Phone: [phone] Miscellaneous Notes* Telephone Encounter - Ileana Bear RN - 12/26/2024 2:41 PM EDT Pt notified and verbalizes understanding. Ileana Bear RN * Telephone Encounter - Rasheed Perez MD - 12/26/2024 2:36 PM EDT I sent potassium tablets to pharmacy. Please tell him to take it. Thanks documented in this encounterJ.W. Ruby Memorial Hospital07-15-2025 Telephone encounter Note * Telephone Encounter - Rasheed Perez MD - 12/26/2024 2:36 PM EDT I sent potassium tablets to pharmacy. Please tell him to take it. Thanks [facility]07-15-2025 Instructions* Patient Instructions* Rasheed Perez MD - 12/26/2024 2:07 PM EDT Schedule chemo next week F/u with rad onc this week. Pt already had simulation done. Can we start radiation next week? Start chemo on the start day of radiation Ordered physical therapy consult Ordered handicap parking F/u next week. documented in this encounterJ.W. Ruby [facility] Hospital07-15-2025 NoteDunlap [facility]07-15-2025 History of Present illness Narrative* Rasheed Perez MD - 12/26/2024 1:40 PM EDT Images from the original note were not included. PATIENT NAME: Jatin Koch II CLINIC NO.: [id number] ATTENDING PHYSICIAN: Rasheed Perez MD DATE OF SERVICE: 12/26/[address] Chip [address] [address] thank you for referring Jatin Koch II [...] pk/day for 40yrs. 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 C/o hemoptysis. C/o mild dysphagia. 11/17/24: - Recently had a pacemaker implanted on 11/09/24 due to complete heart block, which was an emergencyprocedure. He reports feeling 100% better since the pacemaker was placed. - Scheduled for bronchoscopy on 11/20/24. - Doing well. - Cough is better. 12/26/24: - Hospitalized from 12/15-12/22/24 with pneumonia - CT C/A/P at [facility] in December 2024 is negative for mets. [...] Range Status 12/26/2024 4.9 % Final Abs Latimer Date Value Ref Range Status 12/26/2024 0.84 [...] 12/15-12/22/24 with pneumonia - CT C/A/P at [facility] in December 2024 is negative for mets - Scheduled for bronchoscopy on 11/20/24. Right lung, bronchus intermedius, endobronchial biopsy: Squamous cell carcinoma. PD-L1 TPS 0%. - Pt already had radiation simulation done - We will start weekly carbo taxol with radiation next week - All his questions answered in detail. - F/u in [address] Chip Carbajal [address] [facility] [address] thank you for allowing me to participate in [facility], if there are any questions or concerns please do not hesitate to contact me at the number below. I spent a total of 20 minutes on the date of the service which included preparing to see the patient, [id number] patient care, completing clinical documentation, obtaining and/or reviewing separately obtained history, performing a medically appropriate examination, counseling and educating the pat ient/family/caregiver, ordering medications, tests, or procedures, communicating with other HCPs (not separately reported), independently interpreting results (not separately reported), communicatingresults to the patient/family/caregiver, and care coordination (not separately reported). Rasheed Perez MD. Hematology/Medical Oncology [facility] [place] [phone] CC: documented in this encounterJ.W. Ruby [facility] Hospital07-14-2025 Miscellaneous Notes* Telephone Encounter - Xiomara Wright RN - 12/25/2024 8:56 AM EDT Images from the original note were not included. Patient with Darlington duel chamber pacemake placed 11/09/24 with JZL. [...] and advise, thank you Presenting EGM As- Spot Man events. Atrial burden <1%. * Telephone Encounter [...] note were not included. Patient was in [facility] at time of events for a week. [...] this am stating [facility] are [facility] tx and managementof pt's cancer [...] here? JBP please review and advise for MasonZL off. * Telephone Encounter - Crystal Morin RN - 12/25/2024 8:56 AM EDT No new alerts/detections from home monitor since 12/28/24. LVM with pt to send transmission through home monitor to assess rhythm/device once home. Per prior note, pt was at . Pt is scheduled 01/10/25 for weekly home monitor transmission while receiving radiation. * Telephone Encounter - aLni Khanna MD - 12/25/2024 8:56 AM EDT [...] more problems than not. documented in this encounterBrightlook [facility]-14-2025 Telephone encounter Note* Telephone Encounter - Xiomara Wright RN - 12/25/2024 8:56 AM EDT Images from the original note were not included. Patient with Darlington duel chamber pacemake placed 11/09/24 with JZL. [...] and advise, thank you Presenting EGM As- Spot Man events. Atrial burden <1%. [facility]07-14-2025 Telephone encounter Note* Telephone Encounter - Robert Veloz MD - 12/25/2024 8:56 AM EDT Reviewed, CHADS2 Vasc essentially 1, burden of atrial fibrillation low in in the setting of radiation therapy. Okay to continue monitoring for now off of anticoagulation. [facility] Work Phone: [phone] Telephone encounter Note* Telephone Encounter - Xiomara Wright RN - 12/25/2024 8:56 AM EDT Images from the original note were not included. Patient was in [facility] at time of events for a week. [...] in office bp was 110/62 HR 90 [facility] [id number] Telephone encounter Note* Telephone Encounter - Robert Veloz MD - 12/25/2024 8:56 AM EDT Would leave him at Toprol 25 mg q.day, his prior dosing. [facility] [id number] Telephone encounter Note* Telephone Encounter - Xiomara Wright RN - 12/25/2024 8:56 AM EDT LM for patient with JZL response. [facility] [id number] Telephone encounter Note* Telephone Encounter - Josseline [...] ok to continue to monitor. Thank you. [facility]07-14-2025 Telephone encounter Note* Telephone Encounter - Robert Veloz MD - 12/25/2024 8:56 AM EDT Okay to continue monitoring [facility]07-14-2025 Telephone encounter Note* Telephone Encounter - Sheila Betancourt RN - 12/25/2024 8:56 AM EDT Pt's calls office this am stating [facility] tx and managementof pt's cancer [...] please review and advise for SANYA off. [facility]07-14-2025 Telephone encounter Note* Telephone Encounter - Crystal Morin RN - 12/25/2024 8:56 AM EDT No new alerts/detections from home monitor since 12/28/24. LVM with pt to send transmission through home monitor to assess rhythm/device once home. Per prior note, pt was at . Pt is scheduled 01/10/25 for weekly home monitor transmission while receiving radiation. [facility]07-14-2025 Telephone encounter Note* Telephone Encounter - Lani [...] metoprolol might cause more problems than not. [facility] Work Phone: [phone]) [phone] Telephone encounter Note* Telephone Encounter - Ileana Bear RN - 12/22/2024 2:06 PM EDT DISCHARGE CALL BACK Today's date: December 22, 2024 Notified of Pt discharge by: Pt's spouse. Patient discharged on 12/22/24 from [facility] to Home Primary Cancer Diagnosis: Lung Cancer Admitting Diagnosis: Postobstructive Pneumonia Discharge Summary/SBAR reviewed: Yes Handoff Discussed with Transitional Regional Service Manager: N/A Psychosocial Risk Factors: None If patient [...] new meds and changes. Ileana Bear RN [facility] Work Phone: [phone] Miscellaneous Notes* Telephone Encounter - Ileana Bear RN - 12/22/2024 2:06 PM EDT DISCHARGE CALL BACK Today's date: December 22, 2024 Notified of Pt discharge by: Pt's spouse. Patient discharged on 12/22/24 from [facility] to Home Primary Cancer Diagnosis: Lung Cancer Admitting Diagnosis: Postobstructive Pneumonia Discharge Summary/SBAR reviewed: Yes Handoff Discussed with Transitional Regional Service Manager: N/A Psychosocial Risk Factors: None If patient discharged to SNF/Rehab Facility, phone call completed to reinforce discharge instructions and follow up: N/A Call Disposition: Admission unrelated to cancer diagnosis/treatment. Spoke w/ pt's spouse, Eoly. Discharge medications reviewed. Spouse verbalizes understanding and states that she will be picking up the scripts for pt's Doxycycline and Augmentin later today. Pt scheduled to follow up w/ his PCP on 12/29. Spouse aware of his appointments here next week. Denies needs at present time. Pt's medication list updated to reflect new meds and changes. Ileana Bear RN documented in this encounterJ.W. Ruby [facility] Hospital07-11-2025 Telephone encounter Note * Telephone Encounter - Victoria Pack - 12/22/2024 1:30 PM EDT D/C summary scanned. [facility]07-11-2025 Miscellaneous Notes* Telephone Encounter - Victoria [...] RN - 12/22/2024 10:28 AM EDT Update: Alber ortiz/ Jazlyn @ [facility]. Reports pt's discharge is pending results of his ECHO. ECHO ordered due to suspected SVT. Still receiving IV antibiotics for the pneumonia. WBC 19.7. H&H 10.1/32.1. Calcium yesterday was 11.2. Treated w/ calcitonin and bisphosphonate therapy. Repeat today was 9.7. Ileana Bear, RN * Telephone Encounter - Cassia Cantu RN - 12/20/2024 11:15 AM EDT I called and spoke to Meredith nurse at [facility], she said Jatin's doctor did see him this a.m. but she doesn't have an update at this time. She said she isn't aware of an expected discharge date at this time. Nursing will continue to get updates from [facility]. Cassia Cantu RN * Telephone Encounter - Blanquita Hargrove [...] Dr Wilkerson today 12/18. Charlotte Caldwell Pss * Telephone Encounter - Blanquita Hargrove RN - 12/18/2024 8:33 AM EDT Call received from pt's stating pt is currently admitted at [facility] fro pneumonitis,possible pneumonia. WBC 33.5 currently on IV vanco and zosyn. Pt was due to start concurrent chemo/RT today. Reyna: can you get records please. Thanks Blanquita Hargrove RN documented in this encounterJ.W. Ruby [facility] Hospital07-11-2025 Telephone encounter Note * Telephone Encounter - Carlos Funez - 12/22/2024 11:28 AM EDT Labs added [facility]07-11-2025 Telephone encounter Note* Telephone Encounter - Ileana Bear RN - 12/22/2024 11:20 AM EDT Pt will needs labs that day as well. Please add him to the lab schedule @ 145. Thanks! Pt's spouse notified of the appointment and verbalizes understanding. Ileana Bear RN [facility] Work Phone: [phone] Telephone encounter Note* Telephone Encounter - Carlos Funez - 12/22/2024 11:17 AM EDT Follow up scheduled for December 26 at 2pm. He already had a massage set up for 230. [facility]07-11-2025 Telephone encounter Note* Telephone Encounter - [...] scheduled. Thanks! XRT: BREANNA... Ileana Bear RN [facility]07-11-2025 Telephone encounter Note* Telephone Encounter - Rasheed Perez MD - 12/22/2024 10:55 AM EDT Just a follow up to see how he is doing. Thanks [facility]07-11-2025 Telephone encounter Note* Telephone Encounter - Ileana Bear RN - 12/22/2024 10:49 AM EDT Thank you for your quick reply. Should we plan to start treatment that day or just a follow up to see how he is doing? Ileana Bear RN [facility]07-11-2025 Telephone encounter Note* Telephone Encounter - Rasheed Perez MD - 12/22/2024 10:42 AM EDT Schedule follow up with me next week. Thank you [facility]07-11-2025 Telephone encounter Note* Telephone Encounter - [...] his dc summary. Thanks! Ileana Bear RN [facility]07-11-2025 Telephone encounter Note* Telephone Encounter - Ileana Bear RN - 12/22/2024 10:28 AM EDT Update: Spoke w/ Jazlyn @ [facility]. Reports pt's discharge is pending results of his ECHO. ECHO ordered due to suspected SVT. Still receiving IV antibiotics for the pneumonia. WBC 19.7. H&H 10.1/32.1. Calcium yesterday was 11.2. Treated w/ calcitonin and bisphosphonate therapy. Repeat today was 9.7. Ileana Bear RN [facility]07-09-2025 Telephone encounter Note* Telephone Encounter - Cassia Cantu RN - 12/20/2024 11:15 AM EDT I called and spoke to Meredith nurse at [facility], she said Jatin's doctor did see him this a.m. but she doesn't have an update at this time. She said she isn't aware of an expected discharge date at this time. Nursing will continue to get updates from [facility]. Cassia Cantu RN [facility]07-08-2025 Telephone encounter Note* Telephone Encounter - [...] them day by day if need be. [facility] Work Phone: [phone] Telephone encounter Note* Telephone Encounter - Lauren Callejas - 12/19/2024 9:23 AM EDT Pulse Monitoring appt has been canceled Lauren B PSS [facility]07-08-2025 Miscellaneous Notes* Telephone Encounter - Lauren Callejas - 12/19/2024 9:23 AM EDT Pulse Monitoring appt has been canceled Lauren B PSS * [...] bepostponed. Macy Morgan, PRITI documented in this encounterJ.W. Ruby Memorial Hospital07-07-2025 Telephone encounter Note * Telephone Encounter - Macy Morgan, PRITI - 12/18/2024 4:46 PM EDT Call placed to [facility] and confirmed pt will be inpt tomorrow. Spoke to Lexie on [facility]. They are unsure of discharge planning at this time. They will contact our office when they're aware of discharge plan so we can coordinate chemo/rad start. PSS- please cancel pulse monitoring appt for 12/19. Radiation will be notified that new start will bepostponed. Macy Morgan RN [facility]07-07-2025 Telephone encounter Note* Telephone Encounter - Victoria Pack - 12/18/2024 9:40 AM EDT Records scanned. [facility]07-07-20[facility] Telephone encounter Note* Telephone Encounter - Charlotte Euceda - 12/18/2024 8:42 AM EDT Cancelled patients appointments with REBEKAH and Dr Wilkerson today 12/18. Charlotte Jackson [facility]07-07-2025 Telephone encounter Note* Telephone Encounter - Blanquita Hargrove RN - 12/18/2024 8:33 AM EDT Call received from pt's stating pt is currently admitted at [facility] fro pneumonitis,possible pneumonia. WBC 33.5 currently on IV vanco and zosyn. Pt was due to start concurrent chemo/RT today. Reyna: can you get records please. Thanks Blanquita Hargrove, RN [facility]07-07-2025 Telephone encounter Note* Telephone Encounter - Macy Morgan RN - 12/18/2024 7:42 AM EDT Rosey from [facility] left voicemail stating she had spoken to Dr Shaw. He is comfortable with Mr Koch having his device checks remotely each week. She will get this scheduled. Device clinic for further questions [phone]. Pt will also be monitored with daily treatment monitoring pulse ox. Macy Morgan RN [facility]07-07-2025 Miscellaneous Notes* Telephone Encounter - Macy Morgan RN - 12/18/2024 7:42 AM EDT Rosey from [facility] left voicemail stating she had spoken to Dr Shaw. He is comfortable with Mr Koch having his device checks remotely each week. She will get this scheduled. Device clinic for further questions [phone]. Pt will also be monitored with daily treatment monitoring pulse ox. Macy Morgan RN * Telephone Encounter - Cassia Cantu RN - 12/14/2024 4:18 PM EDT I called and spoke with Rosey at [facility]. 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 I notified [...] response by Wednesday a.m. Per Anant Davis, medical staff credentialing coordinator, Devise dose report: Cumulative dose to pacemaker is planned to be72 cGy over 30 fractions. Patient is pacemaker dependent. Recommend weekly pacemaker checks and real-time monitoring (pulse ox) during each fraction. Thanks Cassia Cantu RN documented in this encounterJ.W. Ruby [facility] Hospital07-03-2025 Telephone encounter Note * Telephone Encounter - Cassia Cantu RN - 12/14/2024 4:18 PM EDT I called and spoke with Rosey at [facility]. 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 I notified [...] response by Wednesday a.m. Per Anant Davis, medical staff credentialing coordinator, Devise dose report: Cumulative dose to pacemaker is planned to be72 cGy over 30 fractions. Patient is pacemaker dependent. Recommend weekly pacemaker checks and real-time monitoring (pulse ox) during each fraction. Thanks Cassia Cantu RN [facility]07-01-2025 Telephone encounter Note* Telephone Encounter - Blanquita Hargrove RN - 12/12/2024 4:29 PM EDT Call received from pt's stating they would like to discuss physical therapy as an option for pt when he is here on Wednesday seeing Dr Wilkerson. Pt will need a face to face encounter for this order. Blanquita Hargrove RN [facility] Work Phone: [phone] Miscellaneous Notes* Telephone Encounter - Blanquita Hargrove RN - 12/12/2024 4:29 PM EDT Call received from pt's stating they would like to discuss physical therapy as an option for pt when he is here on Wednesday seeing Dr Wilkerson. Pt will need a face to face encounter for this order. Blanquita Hargrove RN documented in this encounterJ.W. Ruby [facility] Hospital07-01-2025 Telephone encounter Note * Telephone Encounter - Carolina Perdue - 12/12/2024 11:04 AM EDT Patient scheduled. Carolina Perdue [facility]07-01-2025 Miscellaneous Notes* Telephone Encounter - Carolina [...] for XRT. Carolina Perdue documented in this encounterJ.W. Ruby [facility] Hospital06-27-2025 Telephone encounter Note * Telephone Encounter - Blanquita Hargrove RN - 12/08/2024 4:12 PM EDT Voicemail received from pt's stating she has questions regarding a prior auth that needs to bedone for [employer] testing. Call placed to pt's and message left requesting her to call our office back Blanquita Hargrove RN [facility] Work Phone: [phone] Miscellaneous Notes* Telephone Encounter - Blanquita Hargrove RN - 12/08/2024 4:12 PM EDT Voicemail received from pt's stating she has questions regarding a prior auth that needs to bedone for [employer] testing. Call placed to pt's and message left requesting her to call our office back Blanquita Hargrove RN documented in this encounterJ.W. Ruby [facility] Hospital06-27-2025 Telephone encounter Note * Telephone Encounter - Rasheed Perez MD - 12/08/2024 10:11 AM EDT No need to repeat now. Thank you. [facility]06-27-20[facility] Miscellaneous Notes* Telephone Encounter - Rasheed Perez MD - 12/08/2024 10:11 AM EDT No need to repeat now. Thank you. * Telephone Encounter - Blanquita Hargrove RN - 12/08/2024 10:[address] brain done here on 12/07 recommends brain MRI with and without. Pt had a brain MRI done on 11/02 at [facility]. Does this need ot be repeated or no? Please advise Blanquita Hargrove RN documented in this encounterJ.W. Ruby [facility] Hospital06-27-2025 Telephone encounter Note * Telephone Encounter - Blanquita Hargrove RN - 12/08/2024 10:[address]'s [address] brain done here on 12/07 recommends brain MRI with and without. Pt had a brain MRI done on 11/02 at [facility]. Does this need ot be repeated or no? Please advise Blanquita Hargrove RN [facility] Work Phone: [phone]) 149-493106-27-2025 History of Present illness Narrative* Ezra Lizama MD - 12/08/2024 12:00 AM EDT JATIN KOCH [id number] 12/08/2024 [facility] Radiation Oncology Department SIMULATION NOTE DATE OF SIMULATION: 12/08/2024 THERAPIST: Nancy De La Garza MACHINE: Siemens Biograph mCT DIAGNOSIS: Malignant neoplasm of overlapping sites [...] / CDT 54:44 PM documented in this encounterJ.W. Ruby [facility] Hospital06-27-2025 History of Present illness Narrative* Ezra Lizama MD - 12/08/2024 12:00 AM EDT JATIN KOCH [id number] 12/08/2024 [facility] - Department of Radiation Oncology Treatment [...] and DVH. Electronically Signed Ezra Lizama M.D. 54:01 AM documented in this encounterJ.W. Ruby [facility] Hospital06-27-2025 [facility]06-27-2025 [facility]06-26-2025 History of Present illness Narrative* Shola Milan, VINAY-DEPARTMENT OPERATIONS MANAGER - 12/07/2024 3:00 PM EDT Jatin Kohc II Date of visit: 12/07/2024 Date of : 1960 Age: 64 y.o. Patient Active Problem List Diagnosis AV block BPH with urinary obstruction Arthritis Gout Squamous cell lung cancer ([facility]) Syncope Pacemaker- Darlington Allergies Allergen Reactions Bactrim [Sulfamethoxazole-Trimethoprim] Codeine diaphoresis [...] by Robert Veloz MD at [facility] (EP) SKIN BIOPSY basal cell carcinoma removed from left mandaen TONSILLECTOMY TURP / TRANSURETHRAL INCISION / DRAINAGE [...] Squamous cell carcinoma of lung, unspecified laterality ([facility]) 1. Intermittent complete heart block symptomatic with syncopal episodes s/p [employer] dual-chamber pacemaker 11/09/2024. Elevated atrial threshold [...] PCP: CLINT PRINCE Referring Physician: CLINT Prince [address] [place], [place] [address] [address] CLINT Chowdary 12/07/24 1540 documented in this encounterMercy Health06-26-2025 History of Present illness Narrative* Robert Veloz MD - 12/07/2024 2:30 PM EDT I agree with the findings in the scanned document. documented in this encounterMercy Health06-26-2025 History of Present illness Narrative* Ileana Little, RT(R) - 12/07/2024 8:15 AM EDT Radiology [...] PATIENT PRESENTS WITH AN IMPLANTABLE OR ATTACHED SURVEY MANAGER: No RADIOLOGY DEPARTMENT: CT; Exam(s) Completed: Brain PERIPHERAL IV DATA: Not applicable SIGNED BY: RT Meagan(R) December 07, 2024 8:26 AM documented in this encounterJ.W. Ruby [facility]06-26-2025 NoteDunlap [facility]06-25-2025 Telephone encounter Note* Telephone Encounter - Victoria Pack - 12/06/2024 2:47 PM EDT Records scanned. [facility]06-25-2025 Miscellaneous Notes* Telephone Encounter - Victoria Pack - 12/06/2024 [...] Thanks Blanquita Hargrove RN documented in this encounterJ.W. Ruby [facility] Hospital06-25-2025 Telephone encounter Note * Telephone Encounter - Blanquita Hargrove RN - 12/06/2024 11:38 AM EDT Pt's CXR shows no changes. Blanquita Hargrove RN [facility] Work Phone: [phone]) 363-918206-24-2025 Telephone encounter Note* Telephone Encounter - Rasheed Perez MD - 12/05/2024 2:52 PM EDT Consider going to ER if symptoms get worse. Thank you [facility]06-24-2025 Telephone encounter Note* Telephone Encounter - [...] from PCP please Thanks Blanquita Hargrove RN [facility]06-23-2025 History of Present illness Narrative* Ezra Lizama MD - 12/04/2024 11:39 PM EDT Images from the original note were not included. Radiation Oncology - New Patient/Consult Note PATIENT NAME: Jatin Koch II PATIENT Signed: Ezra Lizama MD I spent a total of 60 minutes on the date of the service which included preparing to see the patient, [id number] patient care, and counseling and educating the [...] N Cassia Cantu RN documented in this encounterJ.W. Ruby [facility] Hospital06-18-2025 Telephone encounter Note * Telephone Encounter - Carolina Perdue - 11/29/2024 4:01 PM EDT SIM rescheduled to 12/08. [facility]06-17-2025 Telephone encounter Note* Telephone Encounter - Lauren Callejas - 11/28/2024 3:22 PM EDT IV start appointment has been added. I called and spoke to Gina Eloy. I reminded her of the CT on 12/07/24. I confirmed his [facility] arrival date and time on the . Lauren B PSS [facility]06-17-2025 Miscellaneous Notes* Telephone Encounter - Lauren [...] pt and adjust appts. Macy Morgan RN * Telephone Encounter - Nancy De La Cruz RT(R) - 11/28/2024 2:20 PM EDT Sim rescheduled for 12/08/24 at 10:30 Will need nurse visit for IV start RT Mila(R)(T) * Telephone Encounter - Macy Morgan RN - 11/28/2024 1:28 PM EDT Images from the original note were not included. You Sharon Vásquez RN; Blanquita Hargrove RN1 minute ago (1:26 PM) [...] to be prior to that. Macy Morgan, PRITI * Telephone Encounter - Lauren Callejas - 11/28/2024 11:56 AM EDT Nurse visit has been canceled Lauren Brownlee PSS * Telephone Encounter - Nancy De La Cruz, RT(R) - 11/28/2024 11:52 AM EDT Sim cancelled for 11/30/24; will reschedule once notified when to re add PSS- please cancel nurse visit for 11/30 Nancy De La Cruz RT(R)(T) * Telephone Encounter - Macy Morgan RN [...] advise. Macy Morgan RN documented in this encounterJ.W. Ruby [facility] Hospital06-17-2025 Telephone encounter Note * Telephone Encounter - Macy Morgan RN - 11/28/2024 3:13 PM EDT Please notify pt and adjust appts. Macy Morgan RN [facility]06-17-2025 Telephone encounter Note* Telephone Encounter - Nancy De La Cruz, RT(R) - 11/28/2024 2:20 PM EDT Sim rescheduled for 12/08/24 at 10:30 Will need nurse visit for IV start Nancy De La Cruz RT(R)(T) [facility]06-17-2025 Telephone encounter Note* Telephone Encounter - Macy Morgan, PRITI - 11/28/2024 1:28 PM EDT Images from the original note were not included. You Sharon Vásquez, RN; Blanquita Hargrove RN1 minute ago (1:26 PM) [...] be prior to that. Macy Morgan, RN [facility]06-17-2025 Telephone encounter Note* Telephone Encounter - Lauren Callejas - 11/28/2024 11:56 AM EDT Nurse visit has been canceled Lauren B PSS [facility]06-17-2025 Telephone encounter Note* Telephone Encounter - Nancy De La Cruz, RT(R) - 11/28/2024 11:52 AM EDT Sim cancelled for 11/30/24; will reschedule once notified when to re add PSS- please cancel nurse visit for 11/30 Nancy Jono, RT(R)(T) [facility]06-17-2025 Telephone encounter Note* Telephone Encounter - Macy Morgan, RN - 11/28/2024 10:24 AM EDT PTs [...] 1 week? Please advise. Macy Morgan, RN [facility]06-16-2025 Telephone encounter Note* Telephone Encounter - José Antonio Tapia MD - 11/27/2024 6:00 PM EDT Recived outside call Eulalio Porras. Patient presented to [facility] ED w/ 5 days of fever. [...] to call them tomorrow and reschedule hisappointment. [facility] Work Phone: 1(451) 918-273006-16-2025 Miscellaneous Notes* Telephone Encounter - José Antonio Tapia MD - 11/27/2024 6:00 PM EDT Recived outside call Eulalio Porras. Patient presented to [facility] ED w/ 5 days of fever. [...] tomorrow and reschedule hisappointment. documented in this encounterJ.W. Ruby Memorial Hospital06-16-2025 Telephone encounter Note * Telephone Encounter [...] Eloy is in agreement with this plan. [facility]06-16-2025 Miscellaneous Notes* Telephone Encounter - Nancy [...] She stated the doxycyline is not working [phone] Eloy documented in this encounterJ.W. Ruby Memorial Hospital06-16-2025 Telephone encounter Note * Telephone Encounter - Lauren Callejas - 11/27/2024 11:52 AM EDT Called and spoke to Jatin and we scheduled him for a CT on 12/07/24 at 8:30 AM Lauren Brownlee PSS [facility]06-16-2025 Miscellaneous Notes* Telephone Encounter - Lauren [...] advise Blanquita Hargrove RN documented in this encounterJ.W. Ruby Memorial Hospital06-16-2025 Telephone encounter Note * Telephone Encounter - Blanquita Hargrove RN - 11/27/2024 11:03 AM EDT Please call pt's and schedule CT head ordered by Dr Wilkerson. Thanks Blanquita Hargrove RN [facility] Work Phone: [phone] Telephone encounter Note* Telephone Encounter - aRsheed Perez MD - 11/27/2024 10:52 AM EDT I ordered a CT head. Thank you [facility]06-16-2025 Telephone encounter Note* Telephone Encounter - Candice Garay - 11/27/2024 10:37 AM EDT Patient called and stated if something else can be given to patient for his MRSA. He is running fevers, getting chills,and diuretic episodes She stated the doxycyline is not working [phone] Eloy [facility]06-16-2025 Telephone encounter Note* Telephone Encounter - [...] was negative. Please advise Blanquita Hargrove RN [facility]06-16-2025 NoteDunlap Memorial Hospital06-16-2025 History of Present illness Narrative* Blanquita Hargrove [...] here at our office. Blanquita Hargrove, RN Regional Service Manager Pre Chemo Patient identified by name and date of . YES Confirmed date and time for chemotherapy ? YES TBD Other appointments (labs, imaging) discussed? YES Discussed where to park (eradicator), charge for parking NO Discussed where to [...] 5 days for MRSA. Encouraged to call firebrick and refractory tile repairer who pt is following for MRSA to [...] Wilkerson regarding this. Blanquita Hargrove RN * Shayy Eloy, [facility] - 11/27/2024 9:00 AM EDT Images from the original note were not included. [facility] Department of Pharmacy Oncology Pharmacy Medication [...] patient Eloy Lucas RPh documented in this encounterJ.W. Ruby Memorial Hospital06-16-2025 Telephone encounter Note * Telephone Encounter - Blanquita Hargrove RN - 11/27/2024 9:09 AM EDT Please sign pending antiemetics for pt's education today. Thanks Blanquita Hargrove RN [facility]06-16-2025 Miscellaneous Notes* Telephone Encounter - Blanquita Hargrove RN - 11/27/2024 9:09 AM EDT Please sign pending antiemetics for pt's education today. Thanks Blanquita Hargrove RN documented in this encounterJ.W. Ruby Memorial Hospital06-16-2025 Miscellaneous Notes* Addendum Note - Eloy Lucas RPh - 11/27/2024 9:00 AM EDTAddended by: ELOY LUCAS on: 11/27/2024 11:45 AM Modules accepted: Orders * Addendum Note - Eloy Lucas [facility] - 11/27/2024 9:00 AM EDTAddended by: ELOY LUCAS on: 11/27/2024 11:58 AM Modules accepted: Orders documented in this encounterJ.W. Ruby Memorial Hospital06-16-2025 Note* Addendum Note - Eloy Lucas [facility] - 11/27/2024 9:00 AM EDTAddended by: ELOY LUCAS on: 11/27/2024 11:45 AM Modules accepted: Orders [facility]06-16-2025 Note* Addendum Note - Eloy Lucas [facility] - 11/27/2024 9:00 AM EDTAddended by: ELOY LUCAS on: 11/27/2024 11:58 AM Modules accepted: Orders [facility]06-16-2025 NoteDunlap Memorial Hospital06-12-2025 Telephone encounter Note* Telephone Encounter - Carolina Perdue - 11/23/2024 1:46 PM EDT Per appointments, pt's SIM was rescheduled to 11/30. Carolina Perdue [facility]06-12-2025 Telephone encounter Note* Telephone Encounter - Blessing Dougherty - 11/23/2024 12:33 PM EDT I spoke with patient & let him know his SIM was rescheduled to 11/30/2024 & to arrive by 8:30 am. CLAY Ramos [facility]06-12-2025 Miscellaneous Notes* Telephone Encounter - Blessing [...] aware that Dr. Lizama will be in [place] on 11/27 and 11/28. Cassia Cantu RN [...] this a.m.? PSS: Please schedule PFT's at [facility] per patient request. These need scheduled prior to radiation new start. Thanks Cassia Cantu RN * Telephone Encounter - Rasheed Perez MD - 11/23/2024 9:47 AM EDT No need of PFTs and CT chest. * Telephone Encounter - Ileana Bear RN - 11/23/2024 9:43 AM EDT Foundation labs will need to be drawn in our office. Will defer the other questions to the providers. Ileana Bear, RN * Telephone Encounter - Cassia Cantu RN - 11/23/2024 9:23 AM EDT Eloy, pt's spouse, left a message stating Jatin had bronchoscopy and sputum culture and will be starting doxycycline 100mg BID x 7 days today for MRSA. She is said authorization for PFT's is still pending but would like them done at [facility]-no orders in [facility]. She also asked about a CT chest with IV contrast being ordered-no orders in [facility]. She said he is to have labs per Dr. Perez and is wondering if he can have those drawn at [facility] as well. Patient is currently scheduled for SIM today with Dr. Lizama. Please advise: Does patient need PFT's and/or CT chest? Can patient have Foundation one and other ordered labs at [facility] or do they need done at [facility]? Should SIM continue today or be rescheduled d/t MRSA? Thanks Cassia Cantu RN documented in this encounterJ.W. Ruby [facility] Hospital06-12-2025 Telephone encounter Note * Telephone Encounter - Blessing Dougherty - 11/23/2024 12:32 PM EDT Added nurse visit for IV start on 11/30/2024 at 8:45 am. CLAY Ramos [facility]06-12-2025 Telephone encounter Note* Telephone Encounter - Nancy De La Cruz RT(R) - 11/23/2024 12:26 PM EDT Sim re- scheduled for 11/30/24 at 9:00 am Please add nurse visit for 8:45 for IV start, notify patient of arrival time of 8:30 Nancy Hussein RT(R)(T) [facility]06-12-2025 Telephone encounter Note* Telephone Encounter - [...] aware that Dr. Lizama will be in [place] on 11/27 and 11/28. Cassia Cantu RN [facility]06-12-2025 Telephone encounter Note* Telephone Encounter - Cassia Cantu RN - 11/23/2024 10:21 AM EDT Eloy called back and current temp is 98.9, with Tylenol 1, 00mg at 8:00 a.m. Cassia Cantu RN [facility]06-12-2025 Telephone encounter Note* Telephone Encounter - [...] your signature. Do you want to reschedule SHWETHA to next week due to fever of 102.1 this a.m.? PSS: Please schedule PFT's at [facility] per patient request. These need scheduled prior to radiation new start. Thanks Cassia Cantu RN [facility]06-12-2025 Telephone encounter Note* Telephone Encounter - Rasheed Perez MD - 11/23/2024 9:47 AM EDT No need of PFTs and CT chest. T [facility] Work Phone: [phone] Telephone encounter Note* Telephone Encounter - Ileana Bear RN - 11/23/2024 9:43 AM EDT Foundation labs will need to be drawn in our office. Will defer the other questions to the providers. Ileana Bear RN T [facility] Work Phone: [phone] Telephone encounter Note* Telephone Encounter - Janell An - 11/23/2024 9:33 AM EDT Patient has a string cough but unable to cough up mucous. Patient would like saline for nebulizer sent to [facility] at [address] [place] [address] in [place] [address] [facility]06-12-2025 Miscellaneous Notes* Telephone Encounter - Janell An - 11/23/2024 9:33 AM EDT Patient has a string cough but unable to cough up mucous. Patient would like saline for nebulizer sent to [facility] at [address] [place] [address] [place] [address] documented in this encounterJ.W. Ruby [facility] Hospital06-12-2025 Telephone encounter Note * Telephone Encounter - Cassia Cantu RN - 11/23/2024 9:23 AM EDT Eloy, pt's spouse, left a message stating Jatin had bronchoscopy and sputum culture and will be starting doxycycline 100mg BID x 7 days today for MRSA. She is said authorization for PFT's is still pending but would like them done at [facility]-no orders in [facility]. She also asked about a CT chest with IV contrast being ordered-no orders in [facility]. She said he is to have labs per Dr. Perez and is wondering if he can have those drawn at [facility] as well. Patient is currently scheduled for SIM today with Dr. Lizama. Please advise: Does patient need PFT's and/or CT chest? Can patient have [facility] one and other ordered labs at [facility] or do they need done at [facility]? Should SIM continue today or be rescheduled d/t MRSA? Thanks Cassia Cantu RN [facility]06-12-2025 Progress note* Result Encounter Note - [...] food/ snack andlight sensitivity. All questions answered. [facility]06-12-2025 Miscellaneous Notes* Result Encounter Note - [...] sensitivity. All questions answered. documented in this encounterJ.W. Ruby [facility] Hospital06-11-2025 History of Present illness Narrative* Shola Milan APRN-DEPARTMENT OPERATIONS MANAGER - 11/22/2024 1:00 PM EDT Jatin Koch II Date of visit: 11/22/2024 Date of : 1960 Age: 64 y.o. Patient Active Problem List Diagnosis AV block BPH with urinary obstruction Arthritis Gout Squamous cell lung cancer ([facility]-HCC) Syncope Allergies Allergen Reactions Bactrim [Sulfamethoxazole-Trimethoprim] Codeine [...] heart block. He was recently seen at [facility] warranting pacer implant. He was seen at [place] [facility] due to recurrent syncope and EKG findings of intermittent complete heart block. Transferred to [facility] after evaluation at the [place] office. He is currently being treated for lung CA right lower lobe [facility]. Also treated for hypertension. Device implant 11/09/2024 Dr. Veloz. He had had scheduled outpatient bronchoscopy through [facility] on the . His device was [...] evaluated in the ER. He lives in [facility]. He is scheduled for device check again in a couple weeks. I will see him at that time Past Medical History: Diagnosis Date Arthritis Hypertension Lung cancer (CMS-HCC) No data recorded No data recorded No data recorded Past Surgical History: Procedure Laterality Date EP Invasive DC PPM Left 11/09/2024 Performed by Robert Veloz MD at [facility] () SKIN BIOPSY basal cell carcinoma removed from left mandaen TONSILLECTOMY TURP / TRANSURETHRAL INCISION / DRAINAGE [...] the morning. NON FORMULARY Sig: Med Name: MARIA Immunity support bid Medications Discontinued During This Encounter Medication Reason cetirizine (ZyrTEC) 10 mg tablet Therapy completed levoFLOXacin (LEVAQUIN) 750 mg tablet Therapy completed predniSONE (DELTASONE) 10 mg tablet Therapy completed IMPRESSIONS/PLAN 1. AV block 2. Squamous cell carcinoma of lung, unspecified laterality (CMS-HCC) 1. Intermittent complete heart block symptomatic with syncopal episodes s/p [employer] dual-chamber pacemaker 11/09/2024. Elevated atrial threshold noted on device check [facility] 11/20/2024. Repeat device check today:, x-ray [...] PCP: CLINT PRINCE Referring Physician: CLINT Prince [address] [place] [address] [place] [address] CLINT Chowdary 11/22/24 1403 documented in this encounterMercy Health06-11-2025 History of Present illness Narrative* Reuben Reyna MD - 11/22/2024 1:00 PM EDT I agree with the findings in the scanned document. documented in this encounterMercy Health06-09-2025 Telephone encounter Note* Telephone Encounter - Carolina Perdue - 11/20/2024 2:16 PM EDT SIM scheduled for 11/23 -- Education w/ Blanquita scheduled on 11/30 (Tiff was out on the ). Patient notified of ed appt. Carolina Perdue [facility]06-09-2025 NoteDunlap Memorial Hospital06-09-2025 Telephone encounter Note* Telephone Encounter - Carolina Cooney RN - 11/20/2024 10:48 AM EDT Pt recently had PPM implanted 11/09/[address] Robert Veloz's office (patient's implanting EP doctor) to notify clinic about the RA lead'sthreshold is at 4.5V @ 0.4ms. Was able to speak to device clinic and faxed report over to [phone] [facility]06-09-2025 Miscellaneous Notes* Telephone Encounter - Carolina Cooney RN - 11/20/2024 10:48 AM EDT Pt recently had PPM implanted 11/09/[address] Robert Veloz's office (patient's implanting EP doctor) to notify clinic about the RA lead'sthreshold is at 4.5V @ 0.4ms. Was able to speak to device clinic and faxed report over to [phone] documented in this encounterJ.W. Ruby [facility] Hospital06-09-2025 Telephone encounter Note * Telephone Encounter - Carlos Funez - 11/20/2024 8:03 AM EDT Spoke to Patient, arrival time of 230pm on 11/23 and no special instructions [facility]06-09-2025 Miscellaneous Notes* Telephone Encounter - Carlos Funez - 11/20/2024 8:03 AM EDT Spoke to Patient, arrival time of 230pm on 11/23 and no special instructions * Telephone Encounter - Cassia Cantu RN - 11/17/2024 4:00 PM EDT Patient states he has already met with the sales vice president and has upcoming follow up. Cassia Cantu RN * Telephone Encounter - Zaida Davis Tech - 11/17/2024 3:10 PM EDT PSS- I scheduled Lung Sim on 11/23/2024 at 3:00pm Nurse visit at 2:45pm for IV contrast Arrival time of 2:30pm, No special instructions. Thank you, Zaida Monsalve * Telephone Encounter - Cassia Cantu RN - 11/17/2024 2:33 PM EDT PSS/RT: please schedule SIM 11/23 treating lung with IV contrast, esophageal contrast, 4DCT Consent signed Needs nurse appt for IV start day of SIM Nurse ed today Critical Care Physician Assistant consult(order pending signature) Thanks Cassia Cantu RN documented in this encounterJ.W. [facility] Hospital06-06-2025 NoteDunlap Memorial Hospital06-06-2025 NoteDunlap Memorial Hospital06-06-2025 History of Present illness Narrative* Cassia Cantu RN - 11/17/2024 4:01 PM EDT Radiation Therapy - Patient Education Note PATIENT NAME: Jatin Koch II PATIENT November 17, 2024 [facility] FAC[facility]/LOCATION: [facility] READINESS TO LEARN Cognitive Ability: Alert and [...] need for social work, van service, and sales vice president. Patient has an Onbody or Implanted device: Yes, person notified was: Dr. Lizama and team Signed by: Cassia Cantu RN documented in this encounterJ.W. Ruby [facility] Hospital06-06-2025 Telephone encounter Note * Telephone Encounter - Cassia Cantu RN - 11/17/2024 4:00 PM EDT Patient states he has already met with the sales vice president and has upcoming follow up. Cassia Cantu RN [facility]06-06-2025 Telephone encounter Note* Telephone Encounter - Zaida Davis Tech - 11/17/2024 3:10 PM EDT PSS- I scheduled Lung Sim on 11/23/2024 at 3:00pm Nurse visit at 2:45pm for IV contrast Arrival time of 2:30pm, No special instructions. Thank you, Zaida Monsalve [facility] Work Phone: [phone] Telephone encounter Note* Telephone Encounter - Carolina Perdue - 11/17/2024 3:01 PM EDT Images from the original note were not included. Will schedule once RTC date is deteremined for XRT. Carolina Perdue [facility]06-06-2025 Instructions* Patient Instructions* Rasheed Perez MD - 11/17/2024 2:41 PM EDT Chemo teach for weekly carbo taxol Schedule chemo in 2 weeks on or after the start day of radiation F/u in 2 weeks documented in this encounterJ.W. Ruby [facility] Hospital06-06-2025 Telephone encounter Note * Telephone Encounter - Cassia Cantu RN - 11/17/2024 2:33 PM EDT PSS/RT: please schedule SIM 11/23 treating lung with IV contrast, esophageal contrast, 4DCT Consent signed Needs nurse appt for IV start day of SIM Nurse ed today Critical Care Physician Assistant consult(order pending signature) Thanks Cassia Cantu RN [facility]06-06-2025 History of Present illness Narrative* Rasheed Perez MD - 11/17/2024 2:00 PM EDT Images from the original note were not included. PATIENT NAME: Jatin Koch II CLINIC NO.: [id number] ATTENDING PHYSICIAN: Rasheed Perez MD DATE OF SERVICE: 11/17/[address] Chip Gary [place] [address] thank you for referring Jatin Koch II for an opinion regarding Lung cancer. Some of the elements of this note have been copied from my previous progress note dated 10/27/24 . All the information has been reviewed carefully. CHIEF COMPLAINT: Lung cancer HPI: Jtain Koch II is a 63 year old year old male with PMH of HTN referred to us for lung cancer. CT chest : PET scan: C/o cough and lost 30lbs. Quit smoking in 2017. Smoked 1 pk/day for 40yrs. 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 C/o hemoptysis. [...] in [address] Chip Carbajal [address] [place] [address] thank you for allowing me to participate in Jatin Koch II care, if there are any questions or concerns please do not hesitate to contact me at the number below. I spent a total of 20 minutes on the date of the service which included preparing to see the patient, [id number] patient care, completing clinical documentation, obtaining and/or reviewing separately obtained history, performing a medically appropriate examination, counseling and educating the pat ient/family/caregiver, ordering medications, tests, or procedures, communicating with other HCPs (not separately reported), independently interpreting results (not separately reported), communicatingresults to the patient/family/caregiver, and care coordination (not separately reported). Rasheed Perez MD. Hematology/Medical Oncology [facility] [phone] CC: documented in this encounterJ.W. [facility]06-06-2025 NoteDunlap Memorial Hospital06-06-2025 Miscellaneous Notes* Telephone Encounter - Josseline Stewart RN - 11/17/2024 1:35 PM EDT [facility] called in asking if pt is PPM dependent. New PPM implanted 11/09/24. Planning radiation tx to his lung. No treatment plan yet. First device check scheduled 12/07/24. Not dependent at implant. Asked to call us back when radiation plans are known. documented in this encounterMercy Health06-06-2025 Telephone encounter Note* Telephone Encounter - Josseline Stewart RN - 11/17/2024 1:35 PM EDT [facility] called in asking if pt is PPM dependent. New PPM implanted 11/09/24. Planning radiation tx to his lung. No treatment plan yet. First device check scheduled 12/07/24. Not dependent at implant. Asked to call us back when radiation plans are known. [facility] [id number] Telephone encounter Note* Telephone Encounter - Cassia Cantu RN - 11/17/2024 1:33 PM EDT I called [facility] pacemaker clinic to verify if Jatin is pacemaker dependent or not. Josseline, in the device clinic, said his pacemaker was just placed 11/09/24 and his first device check is scheduled for 12/07/24. [facility] [facility] phone # [phone]. Thanks Cassia Cantu RN [facility]06-06-2025 Miscellaneous Notes* Telephone Encounter - Cassia Cantu RN - 11/17/2024 1:33 PM EDT I called [facility] pacemaker clinic to verify if Jatin is pacemaker dependent or not. Josseline, in the device clinic, said his pacemaker was just placed 11/09/24 and his first device check is scheduled for 12/07/24. [facility] device clinic phone # [phone]. Thanks Cassia Cantu RN documented in this encounterJ.W. [facility]06-06-2025 NoteDunlap [facility]06-04-2025 Instructions* Patient Instructions* Alexandre Robertson MD - [...] and until procedure is done Please call [phone] for additional information prior to bronchoscopy if you have questions You will need someone to bring you to this procedure and stay for the entire duration of procedure as you cannot drive home after procedure documented in this encounterJ.W. Ruby [facility]06-04-2025 History of Present illness Narrative* Alexandre Robertson MD - 11/15/2024 11:00 AM EDT INTERVENTIONAL PULMONARY MEDICINE CONSULTATION PLEASE DO NOT REMOVE FROM THE CHART OR MODIFY PRINTED COPY Patient Name: Jatin Koch II PRIMARY CARE PHYSICIAN: Carlos Collins APRN.DEPARTMENT OPERATIONS MANAGER REFERRING PHYSICIAN: Dr. 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 My final recommendations/evaluation will be communicated back to the requesting physician by way of shared medical record or letter via US mail. Recording using [employer] Education software for draft documentation of the visit was discussed with the patient/authorized title insurance sales representative; all questions welcomed and answered. Patient/authorized title insurance sales representative agreed to proceed CHIEF COMPLAINT: Bronchial obstruction with tumor HISTORY OF PRESENT ILLNESS: Jatin Koch II is a 64 year old male with known right lung squamous cell carcinoma who is here to discuss next steps with the obstruction. Jatin presents with a chronic dry cough that began in June. [facility] and influenza A and B, but the cough persisted. Due to the lack of improvement, his scheduled an appointment with a firebrick and refractory tile repairer, who ordered a CT scan with contrast. 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 All questions were answered to the best of my ability. Written and verbal health teaching given to patient, patient verbalizes understanding and agrees with treatment plan. Electronically Signed: Alexandre Robertson MD November 15, 2024 12:06 PM documented in this encounterJ.W. Ruby [facility]06-04-2025 NoteDunlap [facility]05-28-2025 History of Present illness Narrative* Maritza Best [...] pain.(Patient not taking: Reported on 11/08/2024) PEPSIN/BLESSING/OXBILE/PANCREAT/BET ([id number]-[id number] FIOI-SOI-KQI-PAP ORAL) Take by mouth. 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 With involvement of the lymph node, history of diverticulitis, Patient was seen at [facility] following syncope hardware with about 40 was [...] BIOPSY basal cell carcinoma removed from left mandaen TONSILLECTOMY TURP / TRANSURETHRAL INCISION / DRAINAGE [...] the emergency room to be transferred to [facility] for pacemaker evaluation to suggest 2D echo and nuclear stress test Follow-up with me in 6 months if needed TODAYS ORDERS Orders Placed This Encounter Procedures POCT EKG FOLLOW UP Return in about 6 months (around 05/11/2025). PCP: CARLOS COLLINS, FORENSIC MEDICAL EXAMINER-DEPARTMENT OPERATIONS MANAGER Referring Physician: Alina Ragland MD [address] [place] [phone] documented in this encounterSamaritan North Health CenterMark Medical Helen [facility] Children'S [id number] Telephone encounter Note* Telephone Encounter - Mamie Zepeda MA - 11/08/2024 11:09 AM EDT FMLA paperwork signed and original left at front desk assistant for Eloy to rock picker on Wednesday. Original placed in scanning. Mamie Zepeda MA [facility]05-28-2025 Miscellaneous Notes* Telephone Encounter - Mamie Benson MA - 11/08/2024 11:09 AM EDT FMLA paperwork signed and original left at front desk assistant for Eloy to rock picker on Wednesday. Original placed in scanning. Mamie Zepeda MA * Telephone Encounter - Oskar Freeman MA - 11/07/2024 3:20 PM EDT [facility] paperwork completed for family member has been completed and placed in folder to be signed. Oskar Freeman MA documented in this encounterJ.W. [facility]05-27-2025 Miscellaneous Notes* Telephone Encounter - Brittany Marie RN - 11/07/2024 4:25 PM EDT Pt was in ER at [facility] twice over the weekend. First pt diagnosed with vertigo and sent homeon Meclizine. Pt became bradycardic and was then admitted to [place] with bradycardia and pneumonia. Pt discharged home on Levaquin, taper prednisone and continues meclizine as needed. He is on a holter monitor and sees [facility] cardiology tomorrow. Pt scheduled for AV/LILIAM WednesdayNovember 10. just wanted providers updated. Reyna: please obtain records AV/LILIAM: BRAENNA Marie RN documented in this encounterJ.W. [facility]05-27-2025 Telephone encounter Note * Telephone Encounter - Brittany Marie RN - 11/07/2024 4:25 PM EDT Pt was in ER at [facility] twice over the weekend. First pt diagnosed with vertigo and sent homeon Meclizine. Pt became bradycardic and was then admitted to [place] with bradycardia and pneumonia. Pt discharged home on Levaquin, taper prednisone and continues meclizine as needed. He is on a holter monitor and sees [facility] cardiology tomorrow. Pt scheduled for AV/LILIAM WednesdayNovember 10. just wanted providers updated. Reyna: please obtain records AV/LILIAM: BREANNA Marie RN [facility]05-27-2025 Telephone encounter Note* Telephone Encounter - Oskar Freeman MA - 11/07/2024 3:20 PM EDT [place] paperwork completed for family member has been completed and placed in folder to be signed. Oskar Freeman MA [facility]05-27-2025 Miscellaneous Notes* Telephone Encounter - Victoria Collado CMA - 11/07/2024 10:51 AM EDT Called patient to remind them to bring their most current copy of their medication list with them to their appt. Patient verbalizes understanding. [facility] in [facility] encounterMer[facility]05-27-2025 Telephone encounter Note* Telephone Encounter - Victoria Collado CMA - 11/07/2024 10:51 AM EDT Called patient to remind them to bring their most current copy of their medication list with them to their appt. Patient verbalizes understanding. [facility]05-20-2025 NoteDunlap [facility] Hospital05-19-2025 Note [facility]05-16-2025 Telephone encounter Note* Telephone Encounter - Janell An - 10/27/2024 10:19 AM EDT Referring Physician: Dr. Rasheed Perez Address: [facility] [place] Phone #: [phone] Fax #: [phone] Reason for referral: Malignant neoplasm of lower lobe of right lung Is there CareEverywhere Records: Yes Is there Imaging available: Yes - Recent CT: Yes - Date of CT: 10/18/2024 [facility]05-16-2025 Miscellaneous Notes* Telephone Encounter - Janell An - 10/27/2024 10:19 AM EDT Referring Physician: Dr. Rasheed Perez Address: [facility] [place] Phone #: [phone] Fax #: [phone] Reason for referral: Malignant neoplasm of lower lobe of right lung Is there CareEverywhere Records: Yes Is there Imaging available: Yes - Recent CT: Yes - Date of CT: 10/18/2024 documented in this encounterJ.W. [facility]05-16-2025 Note* Addendum Note - Rasheed Perez MD - 10/27/2024 9:57 AM EDTAddended by: RASHEED PEREZ on: 10/27/2024 09:57 AM Modules accepted: Orders [facility]05-16-2025 Miscellaneous Notes* Addendum Note - Rasheed Perze MD - 10/27/2024 9:57 AM EDTAddended by: RASHEED PEREZ on: 10/27/2024 09:57 AM Modules accepted: Orders documented in this encounterJ.W. Ruby [facility] Hospital05-16-2025 Instructions* Patient Instructions* Rasheed Perez MD - 10/27/2024 9:26 AM EDT Refer to radiation oncology Refer to interventional pulmonology Ordered MRI brain F/u in 2 weeks documented in this encounterJ.W. Ruby [facility] Hospital05-16-2025 History of Present illness Narrative* Rasheed Perez MD - 10/27/2024 9:00 AM EDT Images from the original note were not included. PATIENT NAME: Jatin Koch II CLINIC NO.: [id number] ATTENDING PHYSICIAN: Rasheed Perez MD DATE OF SERVICE: October 27, [address] Chip Carbajal [address] [place] [address] thank you for referring Jatin Koch II for an opinion regarding Lung cancer. CHIEF COMPLAINT: Lung cancer HPI: Jatin Koch II is a 63 year old year old male with PMH of HTN referred to us for lung cancer. CT chest : PET scan: C/o cough and lost 30lbs. Quit smoking in 2017. Smoked 1 pk/day for 40yrs. 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 C/o hemoptysis. [...] in [address] Chip Carbajal [address] [place] [address] thank you for allowing me to participate in Jatin Koch II care, if there are any questions or concerns please do not hesitate to contact me at the number below. I spent a total of 60 minutes on the date of the service which included preparing to see the patient, [id number] patient care, completing clinical documentation, obtaining and/or reviewing separately obtained history, performing a medically appropriate examination, counseling and educating the pat ient/family/caregiver, ordering medications, tests, or procedures, communicating with other HCPs (not separately reported), independently interpreting results (not separately reported), communicatingresults to the patient/family/caregiver, and care coordination (not separately reported). Rasheed Perez MD. Hematology/Medical Oncology [facility] [place] [phone] CC: * Mamie Zepeda MA - 10/27/2024 8:59 AM EDT Ravi has an irritating cough but has not coughed up blood since Wednesday, Low grade started Wednesday 102.2 chills on Wednesday (he does not take temp). He has been taking Tylenol to help minimize temps. Mamie Zepeda MA documented in this encounterJ.W. [facility] Hospital05-16-2025 NoteDunlap Memorial Hospital05-16-2025 NoteDunlap Memorial Hospital04-01-2025 Miscellaneous Notes * Telephone Encounter - Dara Vásquez MA - 02/15/2025 12:52 PM EDT Brian Reyesmaryjane (son) called the fax copy of his [facility] paperwork never went through. So,he is requesting that his paperwork be sent through email at [email or web address] and to [email or web address]. Done with success. Dara Vásquez MA documented in this encounterJ.W. [facility] Hospital04-01-2025 Miscellaneous Notes* Telephone Encounter - Dara Vásquez MA - 02/19/2025 9:35 AM EDT Patient coming Wednesday02/21/25 for follow up with labs. Please add lab orders. Thanks. Dara Vásquez MA documented in this encounterJ.W. [facility] Hospital01-16-2024 Evaluation + Plan note Diagnostic Tests Pending * PSA Screen, Total 06/29/23 [facility] 01-16-2024 Hospital Discharge instructions Patient Education 06/29/2023 09:10:43 Kidney Stones, Zoka-hg-Gjiy Kidney Stones Kidney stones are rock-like masses [...] Follow these instructions at home: Medicines Take rvxn-cmt-tqfgzie and prescription medicines only as told by [...] provider. Document Revised: 02/02/2022 Document Reviewed: 02/02/2022 Wedding Party Patient Education 2022 [employer]. Follow Up Care 06/23/2022 09:07:35 With:SANDRA PALMA, VICTORIA Flores, URL Address: [address] [place] [address] [phone] When: Unknown Comments:1.5 yr w/ PSA, KUB, and DAWIT [facility] evaluation noteNo assessment information available [facility] Work Phone: Evaluation note* Diagnosis Malignant neoplasm of lower lobe of right lung (HCC)- Primary documented in this encounter 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Eval[facility]* Diagnosis Malignant neoplasm of lower lobe of right lung (HCC)- Primary Bronchiolar disease Other diseases of trachea and bronchus documented in this encounter [facility]Eval[facility]* Diagnosis AV block- Primary Unspecified atrioventricular block Squamous cell carcinoma of lung, unspecified laterality (CMS-HCC) Pacemaker Cardiac pacemaker in situ documented in this encounter [facility]* Diagnosis Pacemaker- [place]- Primary Cardiac pacemaker in situ documented in this encounter [facility]* Diagnosis Pneumonia of right lower lobe due to methicillin resistant Staphylococcus aureus (MRSA) (HCC)- Primary documented in this encounter [facility]Eval[facility]* Diagnosis Malignant neoplasm of lower lobe of right lung (HCC)- Primary documented in this encounter [facility]* Diagnosis Malignant neoplasm of lower lobe of right lung (HCC)- Primary documented in this encounter [facility]* Diagnosis Malignant neoplasm of lower lobe of right lung (HCC)- Primary documented in this encounter [facility]* Diagnosis Malignant neoplasm of lower lobe of right lung (HCC)- Primary documented in this encounter [facility]Eval[facility]* Diagnosis Malignant neoplasm of lower lobe of right lung (HCC) documented in this encounter [facility]Evaluation [facility]* Diagnosis Pacemaker- Primary Cardiac pacemaker in situ AV block Unspecified atrioventricular block Squamous cell carcinoma of lung, unspecified laterality (CMS-HCC) documented in this encounter [facility]* Diagnosis Pacemaker- Primary Cardiac pacemaker in situ [facility]* Diagnosis Malignant neoplasm of lower lobe of right lung (HCC)- Primary documented in this encounter [facility]* Diagnosis Pre-op testing Preoperative examination, unspecified [facility] Diagnosis Malignant neoplasm of lower lobe of right lung (HCC)- Primary [facility]* Diagnosis Muscle soreness- Primary Mylagia and myositis, unspecified [facility]* Diagnosis Malignant neoplasm of lower lobe of right lung (HCC)- Primary [facility]* Diagnosis Malignant neoplasm of lower lobe of right lung (HCC)- Primary [facility]* Diagnosis Malignant neoplasm of lower lobe of right lung (HCC)- Primary [facility]* Diagnosis Malignant neoplasm of lower lobe of right lung (HCC)- Primary [facility] Diagnosis Malignant neoplasm of lower lobe of right lung (HCC)- Primary [facility]* Diagnosis Malignant neoplasm of lower lobe of right lung (HCC)- Primary [facility] Diagnosis Malignant neoplasm of lower lobe of right lung (HCC)- Primary [facility]* Diagnosis Malignant neoplasm of lower lobe of right lung (HCC)- Primary [facility]* Diagnosis Malignant neoplasm of lower lobe of right lung (HCC)- Primary [facility]* Diagnosis Malignant neoplasm of lower lobe of right lung (HCC)- Primary [facility]* Diagnosis Malignant neoplasm of lower lobe [...] Dehydration- Primary [facility]* Diagnosis Malignant neoplasm of lower lobe [...] (HCC)- Primary [facility]* Diagnosis Malignant neoplasm of lower lobe of right lung (HCC)- Primary [facility]* Diagnosis Malignant neoplasm of lower lobe of right lung (HCC)- Primary [facility]* Diagnosis Malignant neoplasm of lower lobe of right lung (HCC)- Primary [facility]* Diagnosis Malignant neoplasm of lower lobe of right lung (HCC)- Primary [facility]* Diagnosis Muscle soreness- Primary Mylagia and myositis, unspecified [facility]* Diagnosis Malignant neoplasm of lower lobe of right lung (HCC)- Primary [facility]* Diagnosis Malignant neoplasm of lower lobe of right lung (HCC)- Primary [facility]* Diagnosis Malignant neoplasm of lower lobe of right lung (HCC)- Primary [facility]* Diagnosis Dehydration- Primary [facility]* Diagnosis Malignant neoplasm of lower lobe of right lung (HCC)- Primary [facility]* Diagnosis Malignant neoplasm of lower lobe of right lung (HCC)- Primary [facility]* Diagnosis Malignant neoplasm of lower lobe of right lung (HCC)- Primary [facility]* Diagnosis Pacemaker- [place]- Primary Cardiac pacemaker in situ documented [facility]* Diagnosis AV block- Primary Unspecified atrioventricular block Pacemaker Cardiac pacemaker in situ Squamous cell carcinoma of lung, unspecified laterality (CMS-HCC) documented [facility] encounter [facility]* Diagnosis Malignant neoplasm of lower lobe of right lung (HCC)- Primary [facility]* Diagnosis Malignant neoplasm of lower lobe of right lung (HCC)- Primary [facility] Diagnosis Malignant neoplasm of lower lobe of right lung (HCC)- Primary Dehydration Dehydration- Primary [facility]* Diagnosis Dehydration- Primary Dehydration- Primary [facility]* Diagnosis Malignant neoplasm of lower lobe of right lung (HCC)- Primary [facility] Diagnosis Malignant neoplasm of lower lobe of right lung (HCC)- Primary Encounter for antineoplastic chemotherapy Chemotherapy-induced fatigue Weakness Other malaise and fatigue Anemia due to antineoplastic chemotherapy Antineoplastic chemotherapy induced anemia Protein-calorie malnutrition, unspecified severity (HCC) [facility] Diagnosis Rhinorrhea Other diseases of nasal cavity and sinuses documented [facility]* Diagnosis Malignant neoplasm of lower lobe of right lung (HCC)- Primary [facility] Diagnosis Malignant neoplasm of lower lobe of right lung (HCC)- Primary [facility] Diagnosis Malignant neoplasm of lower lobe of right lung (HCC)- Primary [facility]* Diagnosis Malignant neoplasm of lower lobe of right lung (HCC)- Primary [facility]* Diagnosis Palliative care by specialist- Primary Malignant neoplasm of lower lobe of right lung (HCC) Neoplasm related pain Neoplasm related pain (acute) (chronic) SOB (shortness of breath) Shortness of breath Esophagitis Esophagitis, unspecified Rhinorrhea Other diseases of nasal cavity and sinuses Chronic cough Cough Anorexia Constipation due to opioid therapy Dysphagia, unspecified type [facility] Diagnosis Malignant neoplasm of lower lobe of right lung (HCC)- Primary [facility] Diagnosis Malignant neoplasm of lower lobe of right lung (HCC)- Primary [facility] Diagnosis Malignant neoplasm of lower lobe of right lung (HCC)- Primary [facility] Diagnosis Malignant neoplasm of lower lobe of right lung (HCC)- Primary [facility] Diagnosis Malignant neoplasm of lower lobe of right lung (HCC)- Primary [facility] Diagnosis Malnutrition of mild degree (HCC)- Primary Malnutrition of mild degree Malignant neoplasm of lower lobe of right lung (HCC) [facility] Diagnosis Malignant neoplasm of lower lobe of right lung (HCC)- Primary [facility]* Diagnosis Malignant neoplasm of lower lobe of right lung (HCC)- Primary [facility] Diagnosis Malignant neoplasm of lower lobe of right lung (HCC)- Primary [facility] Diagnosis Weakness- Primary Other malaise and fatigue Adverse effect of antineoplastic and immunosuppressive drugs, initial encounter Other fatigue documented in this encounter [facility]Evaluation [facility]* Diagnosis Weakness- Primary Other malaise and fatigue Adverse effect of antineoplastic and immunosuppressive drugs, initial encounter Other fatigue documented in this encounter [facility] HealthcareEvaluation note* Diagnosis Pacemaker- [place]- Primary Cardiac pacemaker in situ [facility] Diagnosis Weakness- Primary Other malaise and fatigue Adverse effect of antineoplastic and immunosuppressive drugs, initial encounter Other fatigue documented in this encounter [facility] HealthcareEvaluation note* Diagnosis Weakness- Primary Other malaise and fatigue Adverse effect of antineoplastic and immunosuppressive drugs, initial encounter Other fatigue documented in this encounter [facility] HealthcareHospital course Narrative No data available for this section [facility] Hospital Discharge instructions No data available for this section [facility] InstructionsNot on filedocumented in this encounter [facility] [...] available for this section [facility] reason for referral (narrative)No reason for referral information [facility] Work Phone: Reason for visit Narrative* Auth/Cert (Routine) Specialty Diagnoses / Procedures Referred By Beti montiel Referred To Contact ADMITTING 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] Procedures [facility] INCL FLUOR GDNCE DX W/CELL WASHG SPX BRONCHOSCOPY FLEXIBLE ADULT Admitting [address] [place] [address] Referral ID Status Reason Start Date Expiration Date Visits Re quested Visits Authorized [id number] 1 1 [facility] for visit Narrative* Outpatient Procedure (Urgent) - Closed Specialty Diagnoses / Procedures Referred By Beti montiel Referred To Contact [facility] Diagnoses Pre-op testing Procedures ECG COMPLETE ECG ROUTINE ECG W/LEAST 12 LDS W/I&R Maryuri Lowery MD [address] [place] [address] Phone: tel: fax: [facility] [address] [place] [address] Referral ID Status Reason Start Date Expiration Date V isits Requested Visits Authorized [id number] Closed Auto-Generate d Referral 11/03/2024 06/13/2025 1 1 [facility] for visit Narrative* [place] Prior Authorization (Routine) - Authorized Specialty Diagnoses / Procedures Referred By Beti montiel Referred To Contact Diagnoses Malignant neoplasm of lower lobe of right lung (HCC) Rasheed Perez MD [address] [place] [address] Phone: tel: fax: Hematology/Oncology [address] [place] [address] [place] [address] Phone: tel: fax: Referral ID Status Reason Start Date Expiration Date V isits Requested Visits Authorized [id number] Authorized 11/27/2024 02/25/2025 1 99 [facility] for visit Narrative* [place] Prior Authorization (Routine) - Authorized Specialty Diagnoses / Procedures Referred By Contac t Referred To Contact Diagnoses Malignant neoplasm of lower lobe of right lung (HCC) Procedures ETOPOSIDE 10 MG INJ CISPLATIN 10 MG INJECTION PALONOSETRON HCL FOSAPREPITANT INJECTION Rasheed Perez MD [address] [place] [address] Phone: tel: fax: Hematology/Oncology [address] [facility] [place] [id number] Phone: tel: fax: Referral ID Status Reason Start Date Expiration Date V isits Requested Visits Authorized [id number] Authorized 01/08/2025 06/13/2025 99 99 [facility] for visit Narrative* [place] Prior Authorization (Routine) - Authorized Specialty Diagnoses / Procedures Referred By Contac t Referred To Contact Diagnoses Malignant neoplasm of lower lobe of right lung (HCC) Procedures ETOPOSIDE 10 MG INJ CISPLATIN 10 MG INJECTION PALONOSETRON HCL FOSAPREPITANT INJECTION Rasheed Perez MD [address] [place] [address] [address] [place] [id number] Phone: tel: fax: Hematology/Oncology [address] [place] [address] [address] [place] [phone] Phone: tel: fax: Referral ID Status Reason Start Date Expiration Date V isits Requested Visits Authorized [id number] Authorized 01/08/2025 06/13/2025 99 99 [facility] for visit Narrative* Rehabilitation - Outpatient (Routine) - Authorized Specialty Diagnoses / Procedures Referred By Contac t Referred To Contact Physical Therapy Diagnoses Other fatigue Adverse effect of antineoplastic and immunosuppressive drugs, initial encounter Weakness Procedures [place] PHYSICAL THERAPY EVALUATION LOW COMPLEX 20 MINS Rasheed Perez MD [address] [place] [address] Phone: tel: fax: Terra Rashid PT Referral ID Status Reason Start Date Expiration Date Visits Requested Visits Authorized [id number] Authorized Consult and Treat 03/07/2025 09/03/2025 99 99 [facility] - Outpatient (Routine) - Authorized Specialty Diagnoses / Procedures Referred By Contac t Referred To Contact Physical Therapy Diagnoses Other fatigue Adverse effect of antineoplastic and immunosuppressive drugs, initial encounter Weakness Procedures [place] PHYSICAL THERAPY EVALUATION LOW COMPLEX 20 MINS Rasheed Perez MD [address] [place] [address] Phone: tel: fax: Terra Rashid PT Referral ID Status Reason Start Date Expiration Date Visits Requested Visits Authorized [id number] Authorized Consult and Treat 03/07/2025 06/13/2025 99 99 [facility] Healthcare Summary Purpose Family History No Family History [...] 10: 00am Wheezing, Shortness of breath, cough [facility] 2024 11:24am Chief Complaint Admit Date consistent cough (2 months) August 31, 2024 9:38am R05.3 August 31, 2024 10: 00am Wheezing, Shortness of breath, cough [facility] 2024 11:24am Unknown October 16, 2024 [...] and content) DATE CREATED AUTHOR 11/20/2022 [facility] DATE CREATED AUTHOR AUTHOR'S ORGANIZ ATION 01/22/[address] [facility] DATE CREATED AUTHOR AUTHOR'S ORGANIZ ATION 02/06/2025 [facility] DATE CREATED AUTHOR AUTHOR'S ORGANIZ ATION 02/11/2025 [facility] DATE CREATED AUTHOR AUTHOR'S ORGANIZ ATION 02/19/2025 [facility] DATE CREATED AUTHOR AUTHOR'S ORGANIZ ATION 03/19/2025 [facility] DATE CREATED AUTHOR AUTHOR'S ORGANIZ ATION 03/24/2025 [facility] DATE CREATED AUTHOR AUTHOR'S ORGANIZ ATION 04/01/2025 [facility] Patient Care team informatio n (unrecognized section and content) Team Status: Active Member Role Status Dates Carlos Collins BANQUET DIRECTOR-C Primary Care Provider Active Team Status: Inactive Member Role Status Dates Chip Carbajal DO Attending Provider Active St art: October 16, 2024 End: October 16, 2024 Team Status: Active Member Role Status Dates Dominic Ryder PA-C Emergency Provider Active Start: January 02, 2025 Carlos Collins BANQUET DIRECTOR-C Primary Care Provider Active Start: January 02, [...] September 08, 2024 End: September 08, 2024 Survey Manager Relationship Specialty Start Date End Date Doug Bowles PCP - General 02/23/06 Survey Manager Relationship Specialty Start Date End Date Carlos Collins APRN.ABBEY [address] [place] [address] PCP - General Nurse Practitioner 10/27/24 Survey Manager Relationship Specialty Start Date End Date Alina Ragland MD [address] [place] [phone] PCP - General Family Medicine 09/30/20 Survey Manager Relationship Specialty Start Date End Date Carlos Collins, FORENSIC MEDICAL EXAMINER.DEPARTMENT OPERATIONS MANAGER [address] [place], [place] [phone] PCP - General Nurse Practitioner 10/27/24 Survey Manager Relationship Specialty Start Date End Date DennisCarlos mascorro, FORENSIC MEDICAL EXAMINER.DEPARTMENT OPERATIONS MANAGER [address] [place], [place] [phone] PCP - General Nurse Practitioner 10/27/24 Survey Manager Relationship Specialty Start Date End Date DennisCarlos mascorro, FORENSIC MEDICAL EXAMINER-DEPARTMENT OPERATIONS MANAGER [address] [place], [place] [phone] PCP - General Nurse Practitioner 11/08/24 Survey Manager Relationship Specialty Start Date End Date Carlos Collins, FORENSIC MEDICAL EXAMINER-DEPARTMENT OPERATIONS MANAGER [address] [place], [place] [phone] PCP - General Nurse Practitioner 11/08/24 Survey Manager Relationship Specialty Start Date End Date DennisCarlos mascorro, FORENSIC MEDICAL EXAMINER.DEPARTMENT OPERATIONS MANAGER [address] [place], [place] [phone] PCP - General Nurse Practitioner 10/27/24 Survey Manager Relationship Specialty Start Date End Date DennisCarlos mascorro, FORENSIC MEDICAL EXAMINER-DEPARTMENT OPERATIONS MANAGER [address] [place], [place] [phone] PCP - General Nurse Practitioner 11/08/24 Survey Manager Relationship Specialty Start Date End Date DennisCarlos mascorro, FORENSIC MEDICAL EXAMINER.DEPARTMENT OPERATIONS MANAGER [address] [place] [address], [place] [address] PCP - General Nurse Practitioner 10/27/24 Survey Manager Relationship Specialty Start Date End Date Dennis, Carlos L, FORENSIC MEDICAL EXAMINER.DEPARTMENT OPERATIONS MANAGER [address] [place] [address], [place] [address] PCP - General Nurse Practitioner 10/27/24 Survey Manager Relationship Specialty Start Date End Date Dennis, Carlos L, FORENSIC MEDICAL EXAMINER.DEPARTMENT OPERATIONS MANAGER [address] [place] [address], [place] [address] PCP - General Nurse Practitioner 10/27/24 Survey Manager Relationship Specialty Start Date End Date Dennis, Carlos L, FORENSIC MEDICAL EXAMINER.DEPARTMENT OPERATIONS MANAGER [address] [place] [address] PCP - General Nurse Practitioner 10/27/24 Survey Manager Relationship Specialty Start Date End Date Dennis, Carlos L, FORENSIC MEDICAL EXAMINER-DEPARTMENT OPERATIONS MANAGER [address] [place] [address] PCP - General Nurse Practitioner 11/08/24 Survey Manager Relationship Specialty Start Date End Date Dennis, Carlos L, FORENSIC MEDICAL EXAMINER-DEPARTMENT OPERATIONS MANAGER [address] [place] [address] PCP - General Nurse Practitioner 11/08/24 Survey Manager Relationship Specialty Start Date End Date Dennis, Carlos L, FORENSIC MEDICAL EXAMINER.DEPARTMENT OPERATIONS MANAGER [address] [place] [address], [place] [address] PCP - General Nurse Practitioner 10/27/24 Survey Manager Relationship Specialty Start Date End Date Dennis, Carlos L, FORENSIC MEDICAL EXAMINER.DEPARTMENT OPERATIONS MANAGER [address] [place] [address] PCP - General Nurse Practitioner 10/27/24 Survey Manager Relationship Specialty Start Date End Date Dennis, Carlos L, FORENSIC MEDICAL EXAMINER.DEPARTMENT OPERATIONS MANAGER [address] [place] [address] PCP - General Nurse Practitioner 10/27/24 Survey Manager Relationship Specialty Start Date End Date Dennis, Carlos L, FORENSIC MEDICAL EXAMINER.DEPARTMENT OPERATIONS MANAGER [address] [place] [address] PCP - General Nurse Practitioner 10/27/24 Survey Manager Relationship Specialty Start Date End Date Dennis, Carlos L, FORENSIC MEDICAL EXAMINER.DEPARTMENT OPERATIONS MANAGER [address] [place] [address] PCP - General Nurse Practitioner 10/27/24 Survey Manager Relationship Specialty Start Date End Date Dennis, Carlos L, FORENSIC MEDICAL EXAMINER.DEPARTMENT OPERATIONS MANAGER [address] [place] [address], [place] [address] PCP - General Nurse Practitioner 10/27/24 Survey Manager Relationship Specialty Start Date End Date Dennis, Carlos L, FORENSIC MEDICAL EXAMINER.DEPARTMENT OPERATIONS MANAGER [address] [place] [address], [place] [address] PCP - General Nurse Practitioner 10/27/24 Survey Manager Relationship Specialty Start Date End Date Dennis, Carlos L, FORENSIC MEDICAL EXAMINER.DEPARTMENT OPERATIONS MANAGER [address] [place] [address], [place] [address] PCP - General Nurse Practitioner 10/27/24 Blanquita Hargrove, RN [address] [place] [address] Specialty Regional Service Manager Hematology/Oncology 11/29/24 Rasheed Perez MD [address] [place] [address] Physician Hematology/Oncology 11/29/24 Survey Manager Relationship Specialty Start Date End Date Carlos Collins, FORENSIC MEDICAL EXAMINER.DEPARTMENT OPERATIONS MANAGER [address] [place] [address] PCP - General Nurse Practitioner 10/27/24 Survey Manager Relationship Specialty Start Date End Date Carlos Collins, FORENSIC MEDICAL EXAMINER-DEPARTMENT OPERATIONS MANAGER [address] [place] [address] PCP - General Nurse Practitioner 11/08/24 Survey Manager Relationship Specialty Start Date End Date Carlos Collins, FORENSIC MEDICAL EXAMINER-DEPARTMENT OPERATIONS MANAGER [address] [place] [address] PCP - General Nurse Practitioner 11/08/24 Survey Manager Relationship Specialty Start Date End Date Carlos Collins, FORENSIC MEDICAL EXAMINER.DEPARTMENT OPERATIONS MANAGER [address] [place] [address] PCP - General Nurse Practitioner 10/27/24 Blanquita Hargrove RN [address] [facility] [place] [address] Specialty Regional Service Manager Hematology/Oncology 11/29/24 Rasheed Perez MD [address] [place] [address] [place] [address] Physician Hematology/Oncology 11/29/24 Survey Manager Relationship Specialty Start Date End Date Carlos Collins, FORENSIC MEDICAL EXAMINER.DEPARTMENT OPERATIONS MANAGER [address] [place] [address] PCP - General Nurse Practitioner 10/27/24 Blanquita Hargrove RN [address] [facility] [place] [address] Specialty Regional Service Manager Hematology/Oncology 11/29/24 Rasheed Perez MD [address] [facility] [address] Physician Hematology/Oncology 11/29/24 Survey Manager Relationship Specialty Start Date End Date Carlos Collins, FORENSIC MEDICAL EXAMINER.DEPARTMENT OPERATIONS MANAGER [address] [place] [address] PCP - General Nurse Practitioner 10/27/24 Blanquita Hargrove RN [address] [facility] [place] [address] Specialty Regional Service Manager Hematology/Oncology 11/29/24 Rasheed Perez MD [address] [facility] [place] [address] Physician Hematology/Oncology 11/29/24 Survey Manager Relationship Specialty Start Date End Date Carlos Collins, FORENSIC MEDICAL EXAMINER.DEPARTMENT OPERATIONS MANAGER [facility] [place] [address] PCP - General Nurse Practitioner 10/27/24 Blanquita Hargrove RN [address] [facility] [place] [address] Specialty Regional Service Manager Hematology/Oncology 11/29/24 Rasheed Perez MD [address] [facility] [place] [address] Physician Hematology/Oncology 11/29/24 Survey Manager Relationship Specialty Start Date End Date Carlos Collins, FORENSIC MEDICAL EXAMINER.DEPARTMENT OPERATIONS MANAGER [address] [place] [address] PCP - General Nurse Practitioner 10/27/24 Blanquita Hargrove RN [address] [facility] [place] [address] Specialty Regional Service Manager Hematology/Oncology 11/29/24 Rasheed Perez MD [address] [facility] [place] [address] Physician Hematology/Oncology 11/29/24 Survey Manager Relationship Specialty Start Date End Date Carlos Collins FORENSIC MEDICAL EXAMINER.DEPARTMENT OPERATIONS MANAGER [facility] [place] [address] PCP - General Nurse Practitioner 10/27/24 Blanquita Hargrove, PRITI [address] [facility] [facility] [place] [address] Specialty Regional Service Manager Hematology/Oncology 11/29/24 Rasheed Perez MD [address] [facility] [place] [address] Physician Hematology/Oncology 11/29/24 Survey Manager Relationship Specialty Start Date End Date Carlos Collins FORENSIC MEDICAL EXAMINER.DEPARTMENT OPERATIONS MANAGER [facility] [place] [address] PCP - General Nurse Practitioner 10/27/24 Blanquita Hargrove, RN [address] [facility] [facility] [place] [address] Specialty Regional Service Manager Hematology/Oncology 11/29/24 Rasheed Perez MD [address] [facility] [place] [address] Physician Hematology/Oncology 11/29/24 Survey Manager Relationship Specialty Start Date End Date Carlos Collins FORENSIC MEDICAL EXAMINER.DEPARTMENT OPERATIONS MANAGER [address] [place] [address] PCP - General Nurse Practitioner 10/27/24 Survey Manager Relationship Specialty Start Date End Date Carlos Collins, FORENSIC MEDICAL EXAMINER.DEPARTMENT OPERATIONS MANAGER [address] [place] [address] PCP - General Nurse Practitioner 10/27/24 Blanquita Hargrove, PRITI [address] [facility] [place] [address] Specialty Regional Service Manager Hematology/Oncology 11/29/24 Rasheed Perez MD [address] [facility] [place] [address] Physician Hematology/Oncology 11/29/24 Survey Manager Relationship Specialty Start Date End Date Carlos Collins FORENSIC MEDICAL EXAMINER.DEPARTMENT OPERATIONS MANAGER [facility] [place] [address] PCP - General Nurse Practitioner 10/27/24 Blanquita Hargrove RN [address] [facility] [place] [address] Specialty Regional Service Manager Hematology/Oncology 11/29/24 Rasheed Perez MD [address] [facility] [place] [address] Physician Hematology/Oncology 11/29/24 Survey Manager Relationship Specialty Start Date End Date Carlos Collins, FORENSIC MEDICAL EXAMINER.DEPARTMENT OPERATIONS MANAGER [facility] [place] [address] PCP - General Nurse Practitioner 10/27/24 Blanquita Hargrove RN [address] [facility] [place] [address] Specialty Regional Service Manager Hematology/Oncology 11/29/24 Rasheed Perez MD [address] [facility] [place] [address] Physician Hematology/Oncology 11/29/24 Survey Manager Relationship Specialty Start Date End Date Carlos Collins, FORENSIC MEDICAL EXAMINER.DEPARTMENT OPERATIONS MANAGER [address] [place] [address] PCP - General Nurse Practitioner 10/27/24 Blanquita Hargrove, RN [address] [facility] [place] [address] Specialty Regional Service Manager Hematology/Oncology 11/29/24 Rasheed Perez MD [address] [place] [address] Physician Hematology/Oncology 11/29/24 Survey Manager Relationship Specialty Start Date End Date Carlos Collins, FORENSIC MEDICAL EXAMINER.DEPARTMENT OPERATIONS MANAGER [facility] [place] [address] PCP - General Nurse Practitioner 10/27/24 Blanquita Hargrove RN [address] [facility] [facility] [place] [address] Specialty Regional Service Manager Hematology/Oncology 11/29/24 Rasheed Perez MD [address] [facility] [place] [address] Physician Hematology/Oncology 11/29/24 Survey Manager Relationship Specialty Start Date End Date Carlos Collins, FORENSIC MEDICAL EXAMINER.DEPARTMENT OPERATIONS MANAGER [facility] [place] [address] PCP - General Nurse Practitioner 10/27/24 Blanquita Hargrove, PRITI [address] [facility] [facility] [place] [address] Specialty Regional Service Manager Hematology/Oncology 11/29/24 Rasheed Perez MD [address] [place] [address] Physician Hematology/Oncology 11/29/24 Survey Manager Relationship Specialty Start Date End Date Carlos Collins, FORENSIC MEDICAL EXAMINER.DEPARTMENT OPERATIONS MANAGER [address] [place] [address] PCP - General Nurse Practitioner 10/27/24 Blanquita Hargrove, PRITI [address] [facility] [facility] [place] [address] Specialty Regional Service Manager Hematology/Oncology 11/29/24 Rasheed Perez MD [address] [place] [address] Physician Hematology/Oncology 11/29/24 Survey Manager Relationship Specialty Start Date End Date Carlos Collins, FORENSIC MEDICAL EXAMINER.DEPARTMENT OPERATIONS MANAGER [facility] [place] [address] PCP - General Nurse Practitioner 10/27/24 Blanquita Hargrove RN [address] [facility] [place] [address] Specialty Regional Service Manager Hematology/Oncology 11/29/24 Rasheed Perez MD [address] [facility] [facility] [address] Physician Hematology/Oncology 11/29/24 Survey Manager Relationship Specialty Start Date End Date Carlos Collins, FORENSIC MEDICAL EXAMINER.DEPARTMENT OPERATIONS MANAGER [address] [place] [address] PCP - General Nurse Practitioner 10/27/24 Blanquita Hargrove RN [address] [place] [address] Specialty Regional Service Manager Hematology/Oncology 11/29/24 Rasheed Perez MD [address] [facility] [place] [address] Physician Hematology/Oncology 11/29/24 Survey Manager Relationship Specialty Start Date End Date Carlos Collins APRN.DEPARTMENT OPERATIONS MANAGER [address] [place] [address] PCP - General Nurse Practitioner 10/27/24 Blanquita Hargrove RN [address] [facility] [place] [address] Specialty Regional Service Manager Hematology/Oncology 11/29/24 Rasheed Perez MD [address] [facility] [place] [address] Physician Hematology/Oncology 11/29/24 Survey Manager Relationship Specialty Start Date End Date Carlos Collins APRN.DEPARTMENT OPERATIONS MANAGER [address] [place] [address] PCP - General Nurse Practitioner 10/27/24 Blanquita Hargrove RN [address] [facility] [place] [address] Specialty Regional Service Manager Hematology/Oncology 11/29/24 Rasheed Perez MD [address] [facility] [place] [address] Physician Hematology/Oncology 11/29/24 Team Status: Inactive Member [...] January 02, 2025 End: January 06, 2025 Survey Manager Relationship Specialty Start Date End Date Carlos Collins APRN.DEPARTMENT OPERATIONS MANAGER [address] [place] [address] PCP - General Nurse Practitioner 10/27/24 Blanquita Hargrove, RN [address] [facility] [place] [address] Specialty Regional Service Manager Hematology/Oncology 11/29/24 Rasheed Perez MD [address] [facility] [place] [address] Physician Hematology/Oncology 11/29/24 Annel Alas LSW Blow Off Worker 01/08/25 Survey Manager Relationship Specialty Start Date End Date Carlos Collins FORENSIC MEDICAL EXAMINER-DEPARTMENT OPERATIONS MANAGER [address] [place] [address] PCP - General Nurse Practitioner 11/08/24 Survey Manager Relationship Specialty Start Date End Date Carlos Collins, FORENSIC MEDICAL EXAMINER.DEPARTMENT OPERATIONS MANAGER [address] [place] [address] PCP - General Nurse Practitioner 10/27/24 Blanquita Hargrove, RN [address] [facility] [place] [address] Specialty Regional Service Manager Hematology/Oncology 11/29/24 Rasheed Perez MD [address] [place] [address] [place] [address] Physician Hematology/Oncology 11/29/24 Annel Alas LSW Blow Off Worker 01/08/25 Survey Manager Relationship Specialty Start Date End Date Carlos Collins FORENSIC MEDICAL EXAMINER-DEPARTMENT OPERATIONS MANAGER [address] [place] [address] PCP - General Nurse Practitioner 11/08/24 Survey Manager Relationship Specialty Start Date End Date Carlos Collins, FORENSIC MEDICAL EXAMINER.DEPARTMENT OPERATIONS MANAGER [address] [place] [address] PCP - General Nurse Practitioner 10/27/24 Blanquita Hargrove, RN [address] [facility] [address] Specialty Regional Service Manager Hematology/Oncology 11/29/24 Rasheed Perez MD [address] [facility] [address] Physician Hematology/Oncology 11/29/24 Annel Alas LSW Blow Off Worker 01/08/25 Survey Manager Relationship Specialty Start Date End Date Carlos Collins, FORENSIC MEDICAL EXAMINER.DEPARTMENT OPERATIONS MANAGER [address] [place] [address] PCP - General Nurse Practitioner 10/27/24 Blanquita Hargrove RN [address] [facility] [place] [address] Specialty Regional Service Manager Hematology/Oncology 11/29/24 Rasheed Perez MD [address] [facility] [address] Physician Hematology/Oncology 11/29/24 Annel Alas LSW Blow Off Worker 01/08/25 Survey Manager Relationship Specialty Start Date End Date Carlos Collins, FORENSIC MEDICAL EXAMINER.DEPARTMENT OPERATIONS MANAGER [address] [place] [address] PCP - General Nurse Practitioner 10/27/24 Blanquita Hargrove RN [address] [facility] [facility] [place] [address] Specialty Regional Service Manager Hematology/Oncology 11/29/24 Rasheed Perez MD [address] [facility] [address] Physician Hematology/Oncology 11/29/24 Annel Alas LSW Blow Off Worker 01/08/25 Survey Manager Relationship Specialty Start Date End Date Carlos Collins, FORENSIC MEDICAL EXAMINER.DEPARTMENT OPERATIONS MANAGER [facility] [facility] [place] [address] PCP - General Nurse Practitioner 10/27/24 Blanquita Hargrove, RN [address] [facility] [address] Specialty Regional Service Manager Hematology/Oncology 11/29/24 Rasheed Perez MD [address] [facility] [facility] [address] Physician Hematology/Oncology 11/29/24 Annel Alas LSW Blow Off Worker 01/08/25 Survey Manager Relationship Specialty Start Date End Date Carlos Collins, FORENSIC MEDICAL EXAMINER.DEPARTMENT OPERATIONS MANAGER [address] [place] [address] PCP - General Nurse Practitioner 10/27/24 Blanquita Hargrove RN [address] [facility] [place] [address] Specialty Regional Service Manager Hematology/Oncology 11/29/24 Rasheed Perez MD [address] [address] Physician Hematology/Oncology 11/29/24 Annel Alas LSW Blow Off Worker 01/08/25 Survey Manager Relationship Specialty Start Date End Date Carlos Collins, FORENSIC MEDICAL EXAMINER.DEPARTMENT OPERATIONS MANAGER [address] [place] [address] PCP - General Nurse Practitioner 10/27/24 Blanquita Hargrove RN [address] [facility] [address] [place], [facility] Specialty Regional Service Manager Hematology/Oncology 11/29/24 Rasheed Perez MD [address] [facility] [place] [address] Physician Hematology/Oncology 11/29/24 Annle Alas, SUPERVISOR STRIPPING Blow Off Worker 01/08/25 Survey Manager Relationship Specialty Start Date End Date Carlos Collins, FORENSIC MEDICAL EXAMINER.DEPARTMENT OPERATIONS MANAGER [address] [place] [address] PCP - General Nurse Practitioner 10/27/24 Blanquita Hargrove RN [address] [facility] [place] [address] Specialty Regional Service Manager Hematology/Oncology 11/29/24 Rasheed Perez MD [address] [facility] [place] [address] Physician Hematology/Oncology 11/29/24 Annel Alas LSW Blow Off Worker 01/08/25 Survey Manager Relationship Specialty Start Date End Date Carlos Collins, FORENSIC MEDICAL EXAMINER.DEPARTMENT OPERATIONS MANAGER [address] [place] [address] PCP - General Nurse Practitioner 10/27/24 Blanquita Hargrove RN [address] [facility] [place] [address] Specialty Regional Service Manager Hematology/Oncology 11/29/24 Rasheed Perez MD [address] [facility] [place] [address] Physician Hematology/Oncology 11/29/24 Annel Alas, SUPERVISOR STRIPPING Blow Off Worker 01/08/25 Survey Manager Relationship Specialty Start Date End Date Carlos Collins, FORENSIC MEDICAL EXAMINER.DEPARTMENT OPERATIONS MANAGER [address] [place] [address] PCP - General Nurse Practitioner 10/27/24 Blanquita Hargrove, PRITI [address] [facility] [place] [address] Specialty Regional Service Manager Hematology/Oncology 11/29/24 Rasheed Perez MD [address] [facility] [place] [address] Physician Hematology/Oncology 11/29/24 Annel Alas LSW Blow Off Worker 01/08/25 Survey Manager Relationship Specialty Start Date End Date Carlos Collins, FORENSIC MEDICAL EXAMINER.DEPARTMENT OPERATIONS MANAGER [address] [place], [place] [id number] PCP - General Nurse Practitioner 10/27/24 Blanquita Hargrove RN [address] [facility] [place] [address] Specialty Regional Service Manager Hematology/Oncology 11/29/24 Rasheed Perez MD [address] [facility] [place] [address] Physician Hematology/Oncology 11/29/24 Annel Alas LSW Blow Off Worker 01/08/25 Survey Manager Relationship Specialty Start Date End Date Carlos Collins, FORENSIC MEDICAL EXAMINER.DEPARTMENT OPERATIONS MANAGER [address] [place] [address] PCP - General Nurse Practitioner 10/27/24 Blanquita Hargrove RN [address] [facility] [place] [address] Specialty Regional Service Manager Hematology/Oncology 11/29/24 Rasheed Perez MD [address] [facility] [place] [address] Physician Hematology/Oncology 11/29/24 Annel Alas LSW Blow Off Worker 01/08/25 Team Status: Active Member Role Status Dates Carlos Collins BANQUET DIRECTOR-C Primary Care Provider Active Start: January 15, 2025 Angelica Lawler DO Emergency Provider Active St art: January 15, 2025 Hayes Olivarez DO Admit Provider Active Start: January 15, 2025 Hayes Olivarez DO Attending Provider Active St art: January 15, 2025 Survey Manager Relationship Specialty Start Date End Date Carlos Collins APRN.[facility] [address] [place] [address] PCP - General Nurse Practitioner 10/27/24 Blanquita Hargrove RN [address] [place] [address] [place] [address] Specialty Regional Service Manager Hematology/Oncology 11/29/24 Rasheed Perez MD [address] [place] [address] [place] [address] Physician Hematology/Oncology 11/29/24 Annel Alas LSW Blow Off Worker 01/08/25 Team Status: Active Member Role Status Dates Carlos Collins BANQUET DIRECTOR-C Primary Care Provider Active Start: January 15, [...] Vinson MD Other Provider Active Start: A ug2024 Elise Ayala , [facility]- Other Provider Active Sta rt: January 15, 2025 Shane Altamirano , DO Other Provider Active Start: January 15, 2025 Shannan Ramirez , FORENSIC MEDICAL EXAMINER Other Provider Active Start: January 15, 2025 Amarilys Jones , DO Other Provider Active Sta rt: January 15, 2025 Neftali Motley , DO FELLOW Other Provider Active Start: January 15, 2025 Ari Locke , DO FELLOW Other Provider Active S tart: January 15, 2025 Cristina Luis APRN [facility]- Other Provider Active Start: January 15, 2025 Justin Abbasi MD Attending Provider Active Start: January 15, 2025 Justin Abbasi MD Other Provider Active Start: January 15, 2025 Ana Lilia Shearer MD Other Provider Active St art: January 15, 2025 Ari Noe MD Other Provider Active Start: A 2024 Colin Rajput DO Other Provider Active Start: January 15, [...] Active Member Role Status Dates Carlos Collins BANQUET DIRECTOR-C Primary Care Provider Active Start: January 16, 2025 Angelica Lawler DO Emergency Provider Active St art: January 16, 2025 Hayes Olivarez DO Admit Provider Active Start: January 16, 2025 Hayes Olivarez DO Other Provider Active Start: January 16, 2025 Alina Fernandez RN Other Provider Active Star t: January 16, 2025 Mell Holloway , Other Provider Active Start : January 16, [...] Provider Active Start: A ugust 2024 Cielo Jame Valderrama MD Other Provider Active Start: January 16, 2025 Jada Vinson MD Other Provider Active Start: A ugust 2024 Elise Ayala , [facility] Other Provider Active Sta rt: January 16, 2025 Philippe Epps MD Attending Provider Active Start: January 16, 2025 Survey Manager Relationship Specialty Start Date End Date Carlos Collins, FORENSIC MEDICAL EXAMINER.DEPARTMENT OPERATIONS MANAGER [address] [place] [address] PCP - General Nurse Practitioner 10/27/24 Blanquita Hargrove RN [address] [facility] [place] [address] Specialty Regional Service Manager Hematology/Oncology 11/29/24 Rasheed Perez MD [address] [place] [address] [place] [address] Physician Hematology/Oncology 11/29/24 Annel Alas LSW Blow Off Worker 01/08/25 Survey Manager Relationship Specialty Start Date End Date Carlos Collins, FORENSIC MEDICAL EXAMINER.DEPARTMENT OPERATIONS MANAGER [address] [place] [address] PCP - General Nurse Practitioner 10/27/24 Blanquita Hargrove RN [address] [facility] [place] [address] Specialty Regional Service Manager Hematology/Oncology 11/29/24 Rasheed Perez MD [address] [facility] [place] [address] Physician Hematology/Oncology 11/29/24 Annel Alas, CHRISTEL Blow Off Worker 01/08/25 Ricardo Alva, PRITI Specialty Regional Service Manager Hospice & Palliative Medicine 01/23/25 Sheila Freeman, FORENSIC MEDICAL EXAMINER.DEPARTMENT OPERATIONS MANAGER [address] [facility] [phone] Hospice & Palliative Medicine 01/23/25 Survey Manager Relationship Specialty Start Date End Date Carlos Collins, FORENSIC MEDICAL EXAMINER.DEPARTMENT OPERATIONS MANAGER [address] [place] [address] PCP - General Nurse Practitioner 10/27/24 Blanquita Hargrove, RN [address] [facility] [place] [address] Specialty Regional Service Manager Hematology/Oncology 11/29/24 Rasheed Perez MD [address] [place] [address] [place] [address] Physician Hematology/Oncology 11/29/24 Annel Alas LSW Blow Off Worker 01/08/25 Ricardo Alva RN Specialty Regional Service Manager Hospice & Palliative Medicine 01/23/25 Sheila Freeman, FORENSIC MEDICAL EXAMINER.DEPARTMENT OPERATIONS MANAGER [address] [facility] [place] [phone] Hospice & Palliative Medicine 01/23/25 Survey Manager Relationship Specialty Start Date End Date Carlos Collins, FORENSIC MEDICAL EXAMINER.DEPARTMENT OPERATIONS MANAGER [address] [place] [address] PCP - General Nurse Practitioner 10/27/24 Blanquita Hargrove RN [address] [facility] [place] [address] Specialty Regional Service Manager Hematology/Oncology 11/29/24 Rasheed Perez MD [address] [facility] [place] [address] Physician Hematology/Oncology 11/29/24 Annel Alas, SUPERVISOR STRIPPING Blow Off Worker 01/08/25 Ricardo Alva RN Specialty Regional Service Manager Hospice & Palliative Medicine 01/23/25 Sheila rFeeman, FORENSIC MEDICAL EXAMINER.DEPARTMENT OPERATIONS MANAGER [address] [facility] [place] [address] Hospice & Palliative Medicine 01/23/25 Survey Manager Relationship Specialty Start Date End Date Carlos Collins FORENSIC MEDICAL EXAMINER.DEPARTMENT OPERATIONS MANAGER [address] [place] [address] PCP - General Nurse Practitioner 10/27/24 Blanquita Hargrove RN [address] [facility] [place] [address] Specialty Regional Service Manager Hematology/Oncology 11/29/24 Rasheed Perez MD [address] [facility] [place] [address] Physician Hematology/Oncology 11/29/24 Annel Alas, SUPERVISOR STRIPPING Blow Off Worker 01/08/25 Ricardo Alva, RN Specialty Regional Service Manager Hospice & Palliative Medicine 01/23/25 Sheila Freeman, FORENSIC MEDICAL EXAMINER.DEPARTMENT OPERATIONS MANAGER [address] [facility] [place] [phone] Hospice & Palliative Medicine 01/23/25 Survey Manager Relationship Specialty Start Date End Date Carlos Collins, FORENSIC MEDICAL EXAMINER.DEPARTMENT OPERATIONS MANAGER [address] [place] [address] PCP - General Nurse Practitioner 10/27/24 Blanquita Hargrove RN [address] [facility] [place] [address] Specialty Regional Service Manager Hematology/Oncology 11/29/24 Rasheed Perez MD [address] [facility] [place] [address] Physician Hematology/Oncology 11/29/24 Annel Alas, SUPERVISOR STRIPPING Blow Off Worker 01/08/25 Ricardo Alva, RN Specialty Regional Service Manager Hospice & Palliative Medicine 01/23/25 Sheila Freeman, FORENSIC MEDICAL EXAMINER.DEPARTMENT OPERATIONS MANAGER [address] [facility] [place] [phone] Hospice & Palliative Medicine 01/23/25 Survey Manager Relationship Specialty Start Date End Date Carlos Collins FORENSIC MEDICAL EXAMINER.DEPARTMENT OPERATIONS MANAGER [facility] [place] [address] PCP - General Nurse Practitioner 10/27/24 Blanquita Hargrove RN [address] [facility] [place] [address] Specialty Regional Service Manager Hematology/Oncology 11/29/24 Rasheed Perez MD [address] [facility] [place] [address] Physician Hematology/Oncology 11/29/24 Annel Alas, SUPERVISOR STRIPPING Blow Off Worker 01/08/25 Ricardo Alva RN Specialty Regional Service Manager Hospice & Palliative Medicine 01/23/25 Sheila Freeman, FORENSIC MEDICAL EXAMINER.DEPARTMENT OPERATIONS MANAGER [address] [facility] [place] [phone] Hospice & Palliative Medicine 01/23/25 Survey Manager Relationship Specialty Start Date End Date Carlos Collins, FORENSIC MEDICAL EXAMINER.DEPARTMENT OPERATIONS MANAGER [address] [place] [address] PCP - General Nurse Practitioner 10/27/24 Blanquita Hargrove, PRITI [address] [facility] [place] [address] Specialty Regional Service Manager Hematology/Oncology 11/29/24 Rasheed Perez MD [address] [facility] [place] [address] Physician Hematology/Oncology 11/29/24 Annel Alas, SUPERVISOR STRIPPING Blow Off Worker 01/08/25 Ricardo Alva, RN Specialty Regional Service Manager Hospice & Palliative Medicine 01/23/25 Sheila Freeman, FORENSIC MEDICAL EXAMINER.DEPARTMENT OPERATIONS MANAGER [address] [place] [address] [place] [phone] Hospice & Palliative Medicine 01/23/25 Survey Manager Relationship Specialty Start Date End Date Carlos Collins, FORENSIC MEDICAL EXAMINER.DEPARTMENT OPERATIONS MANAGER [address] [place] [address] 36499 PCP - General Nurse Practitioner 10/27/24 Blanquita Hargrove, PRITI [address] [facility] [place] [address] Specialty Regional Service Manager Hematology/Oncology 11/29/24 Rasheed Perez MD [address] [place] [address] [place] [address] Physician Hematology/Oncology 11/29/24 Annel Alas, SUPERVISOR STRIPPING Blow Off Worker 01/08/25 Ricardo Alva RN Specialty Regional Service Manager Hospice & Palliative Medicine 01/23/25 Sheila Freeman, FORENSIC MEDICAL EXAMINER.DEPARTMENT OPERATIONS MANAGER [address] [facility] [place] [phone] Hospice & Palliative Medicine 01/23/25 Survey Manager Relationship Specialty Start Date End Date Carlos Collins, FORENSIC MEDICAL EXAMINER.DEPARTMENT OPERATIONS MANAGER [address] [place] [address]91 PCP - General Nurse Practitioner 10/27/24 Blanquita Hargrove RN [address] [facility] [place] [address] Specialty Regional Service Manager Hematology/Oncology 11/29/24 Rasheed Perez MD [address] [place] [address] [place] [address] Physician Hematology/Oncology 11/29/24 Annel Alas, SUPERVISOR STRIPPING Blow Off Worker 01/08/25 Ricardo Alva RN Specialty Regional Service Manager Hospice & Palliative Medicine 01/23/25 Sheila Freeman, FORENSIC MEDICAL EXAMINER.DEPARTMENT OPERATIONS MANAGER [address] [place] [address] [place] [address] Hospice & Palliative Medicine 01/23/25 Survey Manager Relationship Specialty Start Date End Date Carlos Collins, FORENSIC MEDICAL EXAMINER.DEPARTMENT OPERATIONS MANAGER [address] [place] [address]903 PCP - General Nurse Practitioner 10/27/24 Blanquita Hargrove RN [address] [facility] [place] [address] Specialty Regional Service Manager Hematology/Oncology 11/29/24 Rasheed Perez MD [address] [place] [address] [place] [address] Physician Hematology/Oncology 11/29/24 Annel Alas, SUPERVISOR STRIPPING Blow Off Worker 01/08/25 Ricardo Alva RN Specialty Regional Service Manager Hospice & Palliative Medicine 01/23/25 Sheila Freeman FORENSIC MEDICAL EXAMINER.DEPARTMENT OPERATIONS MANAGER [address] [facility] [place] [phone] Hospice & Palliative Medicine 01/23/25 Survey Manager Relationship Specialty Start Date End Date Carlos Collins, FORENSIC MEDICAL EXAMINER.DEPARTMENT OPERATIONS MANAGER [facility] [place] [address] PCP - General Nurse Practitioner 10/27/24 Blanquita Hargrove, RN [address] [facility] [place] [address] Specialty Regional Service Manager Hematology/Oncology 11/29/24 Rasheed Perez MD [address] [facility] [place] [address] Physician Hematology/Oncology 11/29/24 Annel Alas LSW Blow Off Worker 01/08/25 Ricardo Alva RN Specialty Regional Service Manager Hospice & Palliative Medicine 01/23/25 Sheila Freeman, FORENSIC MEDICAL EXAMINER.DEPARTMENT OPERATIONS MANAGER [address] [facility] [place] [phone] Hospice & Palliative Medicine 01/23/25 Survey Manager Relationship Specialty Start Date End Date Carlos Collins, FORENSIC MEDICAL EXAMINER.DEPARTMENT OPERATIONS MANAGER [address] [place] [address]214 PCP - General Nurse Practitioner 10/27/24 Blanquita Hargrove, RN [address] [facility] [place] [address] Specialty Regional Service Manager Hematology/Oncology 11/29/24 Rasheed Perez MD [address] [facility] [place] [address] Physician Hematology/Oncology 11/29/24 Annel Alas, CHRISTEL Blow Off Worker 01/08/25 Ricardo Alva RN Specialty Regional Service Manager Hospice & Palliative Medicine 01/23/25 Sheila Freeman, FORENSIC MEDICAL EXAMINER.DEPARTMENT OPERATIONS MANAGER [address] [facility] [address] Hospice & Palliative Medicine 01/23/25 Survey Manager Relationship Specialty Start Date End Date Carlos Collins, FORENSIC MEDICAL EXAMINER.DEPARTMENT OPERATIONS MANAGER [address] [place] [address] PCP - General Nurse Practitioner 10/27/24 Blanquita Hargrove, RN [address] [facility] [place] [address] Specialty Regional Service Manager Hematology/Oncology 11/29/24 Rasheed Perez MD [address] [place] [address] [place] [address] Physician Hematology/Oncology 11/29/24 Annel Alas LSW Blow Off Worker 01/08/25 Ricardo Alva RN Specialty Regional Service Manager Hospice & Palliative Medicine 01/23/25 Sheila Freeman, FORENSIC MEDICAL EXAMINER.DEPARTMENT OPERATIONS MANAGER [address] [facility] [place] [phone] Hospice & Palliative Medicine 01/23/25 Survey Manager Relationship Specialty Start Date End Date Carlos Collins, FORENSIC MEDICAL EXAMINER.DEPARTMENT OPERATIONS MANAGER [facility] [place] [address] PCP - General Nurse Practitioner 10/27/24 Blanquita Hargrove RN [address] [facility] [place] [address] Specialty Regional Service Manager Hematology/Oncology 11/29/24 Rasheed Perez MD [address] [facility] [place] [address] Physician Hematology/Oncology 11/29/24 Annel Alas, SUPERVISOR STRIPPING Blow Off Worker 01/08/25 Ricardo Alva RN Specialty Regional Service Manager Hospice & Palliative Medicine 01/23/25 Sheila Freeman, FORENSIC MEDICAL EXAMINER.DEPARTMENT OPERATIONS MANAGER [address] [facility] [place] [phone] Hospice & Palliative Medicine 01/23/25 Survey Manager Relationship Specialty Start Date End Date Carlos Collins, FORENSIC MEDICAL EXAMINER.DEPARTMENT OPERATIONS MANAGER [address] [place] [address] PCP - General Nurse Practitioner 10/27/24 Blanquita Hargrove RN [address] [facility] [place] [address] Specialty Regional Service Manager Hematology/Oncology 11/29/24 Rasheed Perez MD [address] [facility] [place] [address] Physician Hematology/Oncology 11/29/24 Annel Alas, SUPERVISOR STRIPPING Blow Off Worker 01/08/25 Ricardo Alva RN Specialty Regional Service Manager Hospice & Palliative Medicine 01/23/25 Sheila Freeman, FORENSIC MEDICAL EXAMINER.DEPARTMENT OPERATIONS MANAGER [address] [facility] [phone] Hospice & Palliative Medicine 01/23/25 Survey Manager Relationship Specialty Start Date End Date Carlos Collins, FORENSIC MEDICAL EXAMINER.DEPARTMENT OPERATIONS MANAGER [address] [place] [address]36 PCP - General Nurse Practitioner 10/27/24 Blanquita Hargrove RN [address] [facility] [place] [address] Specialty Regional Service Manager Hematology/Oncology 11/29/24 Rasheed Perez MD [address] [facility] [place] [address] Physician Hematology/Oncology 11/29/24 Annel Alas, SUPERVISOR STRIPPING Blow Off Worker 01/08/25 Ricardo Alva RN Specialty Regional Service Manager Hospice & Palliative Medicine 01/23/25 Sheila Freeman, FORENSIC MEDICAL EXAMINER.DEPARTMENT OPERATIONS MANAGER [address] [facility] [place] [phone] Hospice & Palliative Medicine 01/23/25 Survey Manager Relationship Specialty Start Date End Date Carlos Collins, FORENSIC MEDICAL EXAMINER.DEPARTMENT OPERATIONS MANAGER [address] [place] [address]95 PCP - General Nurse Practitioner 10/27/24 Blanquita Hargrove RN [address] [facility] [place] [address] Specialty Regional Service Manager Hematology/Oncology 11/29/24 Rasheed Perez MD [address] [facility] [place] [address] Physician Hematology/Oncology 11/29/24 Annel Alas, SUPERVISOR STRIPPING Blow Off Worker 01/08/25 Ricardo Alva RN Specialty Regional Service Manager Hospice & Palliative Medicine 01/23/25 Sheila Freeman, FORENSIC MEDICAL EXAMINER.DEPARTMENT OPERATIONS MANAGER [address] [facility] [place] [phone] Hospice & Palliative Medicine 01/23/25 Survey Manager Relationship Specialty Start Date End Date Carlos Collins, FORENSIC MEDICAL EXAMINER.DEPARTMENT OPERATIONS MANAGER [address] [place] [address]45 PCP - General Nurse Practitioner 10/27/24 Blanquita Hargrove, PRITI [address] [facility] [place] [address] Specialty Regional Service Manager Hematology/Oncology 11/29/24 Rasheed Perez MD [address] [facility] [place] [address] Physician Hematology/Oncology 11/29/24 Annle Alas, CHRISTEL Blow Off Worker 01/08/25 Ricardo Alva, RN Specialty Regional Service Manager Hospice & Palliative Medicine 01/23/25 Sheila Freeman, FORENSIC MEDICAL EXAMINER.DEPARTMENT OPERATIONS MANAGER [address] [facility] [place] [phone] Hospice & Palliative Medicine 01/23/25 Survey Manager Relationship Specialty Start Date End Date Carlos Collins, FORENSIC MEDICAL EXAMINER.DEPARTMENT OPERATIONS MANAGER [address] [place] [address] PCP - General Nurse Practitioner 10/27/24 Blanquita Hargrove, PRITI [address] [facility] [place] [address] Specialty Regional Service Manager Hematology/Oncology 11/29/24 Rasheed Perez MD [address] [facility] [place] [address] Physician Hematology/Oncology 11/29/24 Annel Alas, CHRISTEL Blow Off Worker 01/08/25 Ricardo Alva, RN Specialty Regional Service Manager Hospice & Palliative Medicine 01/23/25 Sheila Freeman, FORENSIC MEDICAL EXAMINER.DEPARTMENT OPERATIONS MANAGER [address] [facility] [address] Hospice & Palliative Medicine 01/23/25 Survey Manager Relationship Specialty Start Date End Date Carlos Collins, FORENSIC MEDICAL EXAMINER.DEPARTMENT OPERATIONS MANAGER [address] [place] [address]21 PCP - General Nurse Practitioner 10/27/24 Blanquita Hargrove, RN [address] [facility] [place] [address] Specialty Regional Service Manager Hematology/Oncology 11/29/24 Rasheed Perez MD [address] [facility] [place] [address] Physician Hematology/Oncology 11/29/24 Annel Alas, CHRISTEL Blow Off Worker 01/08/25 Survey Manager Relationship Specialty Start Date End Date Carlos Collins, FORENSIC MEDICAL EXAMINER.DEPARTMENT OPERATIONS MANAGER [address] [place] [address] PCP - General Nurse Practitioner 10/27/24 Blanquita Hargrove RN [address] [facility] [place] [address] Specialty Regional Service Manager Hematology/Oncology 11/29/24 Rasheed Perez MD [address] [facility] [place] [address] Physician Hematology/Oncology 11/29/24 Annel Alas, SUPERVISOR STRIPPING Blow Off Worker 01/08/25 Ricardo Alva RN Specialty Regional Service Manager Hospice & Palliative Medicine 01/23/25 Sheila Freeman, FORENSIC MEDICAL EXAMINER.DEPARTMENT OPERATIONS MANAGER [address] [facility] [phone] Hospice & Palliative Medicine 01/23/25 Survey Manager Relationship Specialty Start Date End Date Carlos Collins, FORENSIC MEDICAL EXAMINER.DEPARTMENT OPERATIONS MANAGER [address] [place] [address] PCP - General Nurse Practitioner 10/27/24 Blanquita Hargrove, PRITI [address] [facility] [address] Specialty Regional Service Manager Hematology/Oncology 11/29/24 Rasheed Perez MD [address] [facility] [place] [address] Physician Hematology/Oncology 11/29/24 Annel Alas, CHRISTEL Blow Off Worker 01/08/25 Ricardo Alva, RN Specialty Regional Service Manager Hospice & Palliative Medicine 01/23/25 Sheila Freeman, FORENSIC MEDICAL EXAMINER.DEPARTMENT OPERATIONS MANAGER [address] [facility] [place] [phone] Hospice & Palliative Medicine 01/23/25 Survey Manager Relationship Specialty Start Date End Date Carlos Collins, FORENSIC MEDICAL EXAMINER.DEPARTMENT OPERATIONS MANAGER [address] [place] [address] 19763 PCP - General Nurse Practitioner 10/27/24 Blanquita Hargrove, PRITI [address] [facility] [address] Specialty Regional Service Manager Hematology/Oncology 11/29/24 Rasheed Perez MD [address] [facility] [place] [address] Physician Hematology/Oncology 11/29/24 Annel Alas, CHRISTEL Blow Off Worker 01/08/25 Ricardo Alva, RN Specialty Regional Service Manager Hospice & Palliative Medicine 01/23/25 Sheila Freeman, FORENSIC MEDICAL EXAMINER.DEPARTMENT OPERATIONS MANAGER [address] [facility] [address] Hospice & Palliative Medicine 01/23/25 Survey Manager Relationship Specialty Start Date End Date Carlos Collins, FORENSIC MEDICAL EXAMINER.DEPARTMENT OPERATIONS MANAGER [address] [place] [address] 29029 PCP - General Nurse Practitioner 10/27/24 Blanquita Hargrove RN [address] [facility] [place] [address] Specialty Regional Service Manager Hematology/Oncology 11/29/24 Rasheed Perez MD [address] [facility] [place] [address] Physician Hematology/Oncology 11/29/24 Annel Alas, SUPERVISOR STRIPPING Blow Off Worker 01/08/25 Ricardo Alva RN Specialty Regional Service Manager Hospice & Palliative Medicine 01/23/25 Sheila Freeman, FORENSIC MEDICAL EXAMINER.DEPARTMENT OPERATIONS MANAGER [address] [facility] [place] [address] Hospice & Palliative Medicine 01/23/25 Survey Manager Relationship Specialty Start Date End Date Carlos Collins, FORENSIC MEDICAL EXAMINER.DEPARTMENT OPERATIONS MANAGER [address] [place] [address] PCP - General Nurse Practitioner 10/27/24 Blanquita Hargrove RN [address] [facility] [place] [address] Specialty Regional Service Manager Hematology/Oncology 11/29/24 Rasheed Perez MD [address] [facility] [place] [address] Physician Hematology/Oncology 11/29/24 Annel Alas, SUPERVISOR STRIPPING Blow Off Worker 01/08/25 Ricardo Alva RN Specialty Regional Service Manager Hospice & Palliative Medicine 01/23/25 Sheila Freeman, FORENSIC MEDICAL EXAMINER.DEPARTMENT OPERATIONS MANAGER [address] [facility] [place] [phone] Hospice & Palliative Medicine 01/23/25 Survey Manager Relationship Specialty Start Date End Date Carlos Collins, FORENSIC MEDICAL EXAMINER.DEPARTMENT OPERATIONS MANAGER [address] [place] [address]35 PCP - General Nurse Practitioner 10/27/24 Blanquita Hargrove, RN [address] [facility] [place] [address] Specialty Regional Service Manager Hematology/Oncology 11/29/24 Rasheed Perez MD [address] [facility] [place] [address] Physician Hematology/Oncology 11/29/24 Annel Alas LSW Blow Off Worker 01/08/25 Ricardo Alva RN Specialty Regional Service Manager Hospice & Palliative Medicine 01/23/25 Sheila Freeman, FORENSIC MEDICAL EXAMINER.DEPARTMENT OPERATIONS MANAGER [address] [facility] [place] [address] Hospice & Palliative Medicine 01/23/25 Survey Manager Relationship Specialty Start Date End Date Carlos Collins, FORENSIC MEDICAL EXAMINER.DEPARTMENT OPERATIONS MANAGER [address] [place] [address] PCP - General Nurse Practitioner 10/27/24 Blanquita Hargrove, RN [address] [facility] [place] [address] Specialty Regional Service Manager Hematology/Oncology 11/29/24 Rasheed Perez MD [address] [facility] [address] [place], [place] [address] Physician Hematology/Oncology 11/29/24 Annel Alas LSW Blow Off Worker 01/08/25 Ricardo Alva, RN Specialty Regional Service Manager Hospice & Palliative Medicine 01/23/25 Sheila Freeman, FORENSIC MEDICAL EXAMINER.DEPARTMENT OPERATIONS MANAGER [address] [facility] [place] [phone] Hospice & Palliative Medicine 01/23/25 Survey Manager Relationship Specialty Start Date End Date Carlos Collins FORENSIC MEDICAL EXAMINER.DEPARTMENT OPERATIONS MANAGER [address] [place] [address] PCP - General Nurse Practitioner 10/27/24 Blanquita Hargrove RN [address] [place] [address] [place] [address] Specialty Regional Service Manager Hematology/Oncology 11/29/24 Rasheed Perez MD [address] [place] [address] [place] [address] Physician Hematology/Oncology 11/29/24 Annel Alas LSW Blow Off Worker 01/08/25 Ricardo Alva, RN Specialty Regional Service Manager Hospice & Palliative Medicine 01/23/25 Sheila Freeman, FORENSIC MEDICAL EXAMINER.DEPARTMENT OPERATIONS MANAGER [address] [place] [address] [place] [phone] Hospice & Palliative Medicine 01/23/25 Survey Manager Relationship Specialty Start Date End Date Carlos Collins APRN-DEPARTMENT OPERATIONS MANAGER [address] [place] [address] PCP - General Nurse Practitioner 11/08/24 Survey Manager Relationship Specialty Start Date End Date Carlos Collins FORENSIC MEDICAL EXAMINER.DEPARTMENT OPERATIONS MANAGER [address] [place] [address] [phone] PCP - General Nurse Practitioner 10/27/24 Blanquita Hargrove, RN [address] [facility] [place] [address] Specialty Regional Service Manager Hematology/Oncology 11/29/24 Rasheed Perez MD [address] [facility] [place] [address] Physician Hematology/Oncology 11/29/24 Annel Alas, SUPERVISOR STRIPPING Blow Off Worker 01/08/25 Ricardo Alva, PRITI Specialty Regional Service Manager Hospice & Palliative Medicine 01/23/25 Sheila Freeman, FORENSIC MEDICAL EXAMINER.DEPARTMENT OPERATIONS MANAGER [address] [facility] [place] [phone] Hospice & Palliative Medicine 01/23/25 Survey Manager Relationship Specialty Start Date End Date Carlos Collins FORENSIC MEDICAL EXAMINER.DEPARTMENT OPERATIONS MANAGER [facility] [place] [address] PCP - General Nurse Practitioner 10/27/24 Blanquita Hargrove RN [address] [facility] [place] [address] Specialty Regional Service Manager Hematology/Oncology 11/29/24 Rasheed Perez MD [address] [facility] [place] [address] Physician Hematology/Oncology 11/29/24 Annel Alas, SUPERVISOR STRIPPING Blow Off Worker 01/08/25 Ricardo Alva RN Specialty Regional Service Manager Hospice & Palliative Medicine 01/23/25 Sheila Fremean, FORENSIC MEDICAL EXAMINER.DEPARTMENT OPERATIONS MANAGER [address] [facility] [place] [address] Hospice & Palliative Medicine 01/23/25 Survey Manager Relationship Specialty Start Date End Date Carlos Collins FORENSIC MEDICAL EXAMINER-DEPARTMENT OPERATIONS MANAGER [address] [place] [address]23 PCP - General Nurse Practitioner 11/08/24 Survey Manager Relationship Specialty Start Date End Date Carlos Collins FORENSIC MEDICAL EXAMINER-DEPARTMENT OPERATIONS MANAGER [address] [place] [address] [phone] PCP - General Nurse Practitioner 11/08/24 Survey Manager Relationship Specialty Start Date End Date Carlos Collins, FORENSIC MEDICAL EXAMINER.DEPARTMENT OPERATIONS MANAGER [address] [place] [address], [place] [address] PCP - General Nurse Practitioner 10/27/24 Blanquita Hargrove RN [address] [facility] [address] [place], [place] [phone] Specialty Regional Service Manager Hematology/Oncology 11/29/24 Rasheed Perez MD [address] [place] [address] [place] [address] Physician Hematology/Oncology 11/29/24 Annel Alas LSW Blow Off Worker 01/08/25 Ricardo Alva RN Specialty Regional Service Manager Hospice & Palliative Medicine 01/23/25 Sheila Freeman, FORENSIC MEDICAL EXAMINER.DEPARTMENT OPERATIONS MANAGER [address] [place] [address] [place] [address] Hospice & Palliative Medicine 01/23/25 Survey Manager Relationship Specialty Start Date End Date Carlos Collins, FORENSIC MEDICAL EXAMINER.DEPARTMENT OPERATIONS MANAGER [address] [place] [address], [place] [address] PCP - General Nurse Practitioner 10/27/24 Blanquita Hargrove RN [address] [facility] [address] [place], [place] [phone] Specialty Regional Service Manager Hematology/Oncology 11/29/24 Rasheed Perez MD [address] [facility] [place] [address] Physician Hematology/Oncology 11/29/24 Annel Alas, [facility] Blow Off Worker 01/08/25 Survey Manager Relationship Specialty Start Date End Date Carlos Collins, FORENSIC MEDICAL EXAMINER.DEPARTMENT OPERATIONS MANAGER [address] [place] [address] PCP - General Nurse Practitioner 10/27/24 Blanquita Hargrove, PRITI [address] [facility] [place] [address] Specialty Regional Service Manager Hematology/Oncology 11/29/24 Rasheed Perez MD [address] [facility] [place] [address] Physician Hematology/Oncology 11/29/24 Annel Alas, [facility] Blow Off Worker 01/08/25 Ricardo Alva RN Specialty Regional Service Manager Hospice & Palliative Medicine 01/23/25 Sheila Freeman, FORENSIC MEDICAL EXAMINER.DEPARTMENT OPERATIONS MANAGER [address] [facility] [place] [phone] Hospice & Palliative Medicine 01/23/25 Survey Manager Relationship Specialty Start Date End Date Carlos Collins, FORENSIC MEDICAL EXAMINER.DEPARTMENT OPERATIONS MANAGER [address] [place] [address]94 PCP - General Nurse Practitioner 10/27/24 Blanquita Hargrove, RN [address] [facility] [place] [address] Specialty Regional Service Manager Hematology/Oncology 11/29/24 Rasheed Perez MD [address] [facility] [place] [address] Physician Hematology/Oncology 11/29/24 Annel Alas, CHRISTEL Blow Off Worker 01/08/25 Ricardo Alva RN Specialty Regional Service Manager Hospice & Palliative Medicine 01/23/25 Sheila Freeman, FORENSIC MEDICAL EXAMINER.DEPARTMENT OPERATIONS MANAGER [address] [facility] [address] Hospice & Palliative Medicine 01/23/25 Survey Manager Relationship Specialty Start Date End Date Carlos Collins, FORENSIC MEDICAL EXAMINER.DEPARTMENT OPERATIONS MANAGER [address] [place] [address] 18895 PCP - General Nurse Practitioner 10/27/24 Blanquita Hargrove RN [address] [facility] [place] [address] Specialty Regional Service Manager Hematology/Oncology 11/29/24 Rasheed Perez MD [address] [facility] [place] [address] Physician Hematology/Oncology 11/29/24 Annel Alas, CHRISTEL Blow Off Worker 01/08/25 Ricardo Alva RN Specialty Regional Service Manager Hospice & Palliative Medicine 01/23/25 Sheila Freeman, FORENSIC MEDICAL EXAMINER.DEPARTMENT OPERATIONS MANAGER [address] [facility] [place] [address] Hospice & Palliative Medicine 01/23/25 Survey Manager Relationship Specialty Start Date End Date Carlos Collins, FORENSIC MEDICAL EXAMINER.DEPARTMENT OPERATIONS MANAGER [address] [place] [address] 31486 PCP - General Nurse Practitioner 10/27/24 Blanquita Hargrove RN [address] [facility] [place] [address] Specialty Regional Service Manager Hematology/Oncology 11/29/24 Rasheed Perez MD [address] [facility] [place] [address] Physician Hematology/Oncology 11/29/24 Annel Alas, SUPERVISOR STRIPPING Blow Off Worker 01/08/25 Ricardo Alva, RN Specialty Regional Service Manager Hospice & Palliative Medicine 01/23/25 Sheila Freeman, FORENSIC MEDICAL EXAMINER.DEPARTMENT OPERATIONS MANAGER [address] [facility] [place] [address] Hospice & Palliative Medicine 01/23/25 Survey Manager Relationship Specialty Start Date End Date Carlos Collins, FORENSIC MEDICAL EXAMINER.DEPARTMENT OPERATIONS MANAGER [address] [place] [address] 24981 PCP - General Nurse Practitioner 10/27/24 Blanquita Hargrove RN [address] [place] [address] [place] [address] Specialty Regional Service Manager Hematology/Oncology 11/29/24 Rasheed Perez MD [address] [facility] [place] [address] Physician Hematology/Oncology 11/29/24 Annel Alas, SUPERVISOR STRIPPING Blow Off Worker 01/08/25 Ricardo Alva, PRITI Specialty Regional Service Manager Hospice & Palliative Medicine 01/23/25 Sheila Freeman, FORENSIC MEDICAL EXAMINER.DEPARTMENT OPERATIONS MANAGER [address] [facility] [place] [phone] Hospice & Palliative Medicine 01/23/25 Survey Manager Relationship Specialty Start Date End Date Carlos Collins, FORENSIC MEDICAL EXAMINER.DEPARTMENT OPERATIONS MANAGER [address] [place] [address] [phone] PCP - General Nurse Practitioner 10/27/24 Blanquita Hargrove, RN [address] [facility] [place] [address] Specialty Regional Service Manager Hematology/Oncology 11/29/24 Rasheed Perez MD [address] [facility] [place] [address] Physician Hematology/Oncology 11/29/24 Annel Alas, CHRISTEL Blow Off Worker 01/08/25 Ricardo Alva, PRITI Specialty Regional Service Manager Hospice & Palliative Medicine 01/23/25 Sheila Freeman, FORENSIC MEDICAL EXAMINER.DEPARTMENT OPERATIONS MANAGER [address] [facility] [place] [phone] Hospice & Palliative Medicine 01/23/25 Survey Manager Relationship Specialty Start Date End Date Carlos Collins FORENSIC MEDICAL EXAMINER.DEPARTMENT OPERATIONS MANAGER [facility] [place] [address] PCP - General Nurse Practitioner 10/27/24 Blanquita Hargrove RN [address] [facility] [place] [address] Specialty Regional Service Manager Hematology/Oncology 11/29/24 Rasheed Perez MD [address] [facility] [place] [address] Physician Hematology/Oncology 11/29/24 Annel Alas, CHRISTEL Blow Off Worker 01/08/25 Ricardo Alva RN Specialty Regional Service Manager Hospice & Palliative Medicine 01/23/25 Sheila Freeman, FORENSIC MEDICAL EXAMINER.DEPARTMENT OPERATIONS MANAGER [address] [facility] [place] [phone] Hospice & Palliative Medicine 01/23/25 Survey Manager Relationship Specialty Start Date End Date Carlos Collins FORENSIC MEDICAL EXAMINER.DEPARTMENT OPERATIONS MANAGER [address] [place] [address]24 PCP - General Nurse Practitioner 10/27/24 Blanquita Hargrove, RN [address] [facility] [place] [address] Specialty Regional Service Manager Hematology/Oncology 11/29/24 Rasheed Perez MD [address] [facility] [place] [address] Physician Hematology/Oncology 11/29/24 Annel Alas, CHRISTEL Blow Off Worker 01/08/25 Ricardo Alva RN Specialty Regional Service Manager Hospice & Palliative Medicine 01/23/25 Sheila Freeman, FORENSIC MEDICAL EXAMINER.DEPARTMENT OPERATIONS MANAGER [address] [facility] [place] [address] Hospice & Palliative Medicine 01/23/25 Survey Manager Relationship Specialty Start Date End Date Carlos Collins, FORENSIC MEDICAL EXAMINER.DEPARTMENT OPERATIONS MANAGER [address] [place] [address] 54735 PCP - General Nurse Practitioner 10/27/24 Blanquita Hargrove, PRITI [address] [facility] [place] [address] Specialty Regional Service Manager Hematology/Oncology 11/29/24 Rasheed Perez MD [address] [facility] [place] [address] Physician Hematology/Oncology 11/29/24 Annel Alas, SUPERVISOR STRIPPING Blow Off Worker 01/08/25 Ricardo Alva RN Specialty Regional Service Manager Hospice & Palliative Medicine 01/23/25 Sheila Freeman, FORENSIC MEDICAL EXAMINER.DEPARTMENT OPERATIONS MANAGER [address] [facility] [address] Hospice & Palliative Medicine 01/23/25 Survey Manager Relationship Specialty Start Date End Date Carlos Collins, FORENSIC MEDICAL EXAMINER.DEPARTMENT OPERATIONS MANAGER [address] [place] [address] 97306 PCP - General Nurse Practitioner 10/27/24 Blanquita Hargrove, PRITI [address] [facility] [place] [address] Specialty Regional Service Manager Hematology/Oncology 11/29/24 Rasheed Perez MD [address] [facility] [place] [address] Physician Hematology/Oncology 11/29/24 Annel Alas, CHRISTEL Blow Off Worker 01/08/25 Ricardo Alva RN Specialty Regional Service Manager Hospice & Palliative Medicine 01/23/25 Sheila Freeman, FORENSIC MEDICAL EXAMINER.DEPARTMENT OPERATIONS MANAGER [address] [facility] [address] Hospice & Palliative Medicine 01/23/25 Survey Manager Relationship Specialty Start Date End Date Carlos Collins, FORENSIC MEDICAL EXAMINER.DEPARTMENT OPERATIONS MANAGER [address] [place] [address] 23873 PCP - General Nurse Practitioner 10/27/24 Blanquita Hargrove RN [address] [facility] [place] [address] Specialty Regional Service Manager Hematology/Oncology 11/29/24 Rasheed Perez MD [address] [facility] [address] Physician Hematology/Oncology 11/29/24 Annel Alas, SUPERVISOR STRIPPING Blow Off Worker 01/08/25 Ricardo Alva RN Specialty Regional Service Manager Hospice & Palliative Medicine 01/23/25 Sheila Freeman, FORENSIC MEDICAL EXAMINER.DEPARTMENT OPERATIONS MANAGER [address] [facility] [phone] Hospice & Palliative Medicine 01/23/25 Survey Manager Relationship Specialty Start Date End Date Carlos Collins, FORENSIC MEDICAL EXAMINER.DEPARTMENT OPERATIONS MANAGER [address] [place] [address] PCP - General Nurse Practitioner 10/27/24 Blanquita Hargrove, RN [address] [facility] [place] [address] Specialty Regional Service Manager Hematology/Oncology 11/29/24 Rasheed Perez MD [address] [facility] [place] [address] Physician Hematology/Oncology 11/29/24 Annel Alas LSW Blow Off Worker 01/08/25 Ricardo Alva RN Specialty Regional Service Manager Hospice & Palliative Medicine 01/23/25 Sheila Freeman, FORENSIC MEDICAL EXAMINER.DEPARTMENT OPERATIONS MANAGER [address] [facility] [phone] Hospice & Palliative Medicine 01/23/25 Survey Manager Relationship Specialty Start Date End Date Carlos Collins, FORENSIC MEDICAL EXAMINER.DEPARTMENT OPERATIONS MANAGER [address] [place] [address]349 PCP - General Nurse Practitioner 10/27/24 Blanquita Hargrove, RN [address] [facility] [address] [place], [place] [phone] Specialty Regional Service Manager Hematology/Oncology 11/29/24 Rasheed Perez MD [address] [facility] [place] [address] Physician Hematology/Oncology 11/29/24 Annel Alas, CHRISTEL Blow Off Worker 01/08/25 Ricardo Alva, PRITI Specialty Regional Service Manager Hospice & Palliative Medicine 01/23/25 Sheila Freeman, FORENSIC MEDICAL EXAMINER.DEPARTMENT OPERATIONS MANAGER [address] [facility] [phone] Hospice & Palliative Medicine 01/23/25 Survey Manager Relationship Specialty Start Date End Date Carlos Collins, FORENSIC MEDICAL EXAMINER.DEPARTMENT OPERATIONS MANAGER [address] [place] [address] 90068 PCP - General Nurse Practitioner 10/27/24 Blanquita Hargrove, RN [address] [facility] [place] [address] Specialty Regional Service Manager Hematology/Oncology 11/29/24 Rasheed Perez MD [address] [place] [address] [place] [address] Physician Hematology/Oncology 11/29/24 Annel Alas LSW Blow Off Worker 01/08/25 Ricardo Alva RN Specialty Regional Service Manager Hospice & Palliative Medicine 01/23/25 Sheila Freeman, FORENSIC MEDICAL EXAMINER.DEPARTMENT OPERATIONS MANAGER [address] [facility] [place] [address] Hospice & Palliative Medicine 01/23/25 Survey Manager Relationship Specialty Start Date End Date Carlos Collins, FORENSIC MEDICAL EXAMINER.DEPARTMENT OPERATIONS MANAGER [address] [place] [address]31 PCP - General Nurse Practitioner 10/27/24 Blanquita Hargrove RN [address] [facility] [address] Specialty Regional Service Manager Hematology/Oncology 11/29/24 Rasheed Perez MD [address] [facility] [place] [address] Physician Hematology/Oncology 11/29/24 Annel Alas, SUPERVISOR STRIPPING Blow Off Worker 01/08/25 Ricardo Alva, RN Specialty Regional Service Manager Hospice & Palliative Medicine 01/23/25 Sheila Freeman, FORENSIC MEDICAL EXAMINER.DEPARTMENT OPERATIONS MANAGER [address] [facility] [place] [address] Hospice & Palliative Medicine 01/23/25 Survey Manager Relationship Specialty Start Date End Date Carlos Collins, FORENSIC MEDICAL EXAMINER.DEPARTMENT OPERATIONS MANAGER [address] [place] [address] 79622 PCP - General Nurse Practitioner 10/27/24 Blanquita Hargrove RN [address] [facility] [place] [address] Specialty Regional Service Manager Hematology/Oncology 11/29/24 Rasheed Perez MD [address] [facility] [place] [address] Physician Hematology/Oncology 11/29/24 Annel Alas, SUPERVISOR STRIPPING Blow Off Worker 01/08/25 Ricardo Alva, RN Specialty Regional Service Manager Hospice & Palliative Medicine 01/23/25 Sheila Freeman, FORENSIC MEDICAL EXAMINER.DEPARTMENT OPERATIONS MANAGER [address] [facility] [place] [phone] Hospice & Palliative Medicine 01/23/25 Survey Manager Relationship Specialty Start Date End Date Carlos Collins, FORENSIC MEDICAL EXAMINER.DEPARTMENT OPERATIONS MANAGER [address] [place] [address] [phone] PCP - General Nurse Practitioner 10/27/24 Blanquita Hargrove RN [address] [facility] [place] [address] Specialty Regional Service Manager Hematology/Oncology 11/29/24 Rasheed Perez MD [address] [facility] [place] [address] Physician Hematology/Oncology 11/29/24 Annel Alas, SUPERVISOR STRIPPING Blow Off Worker 01/08/25 Ricardo Alva, RN Specialty Regional Service Manager Hospice & Palliative Medicine 01/23/25 Sheila Freeman, FORENSIC MEDICAL EXAMINER.DEPARTMENT OPERATIONS MANAGER [address] [facility] [place] [phone] Hospice & Palliative Medicine 01/23/25 Survey Manager Relationship Specialty Start Date End Date Carlos Collins FORENSIC MEDICAL EXAMINER.DEPARTMENT OPERATIONS MANAGER [address] [place] [address] [address] PCP - General Nurse Practitioner 10/27/24 Blanquita Hargrove RN [address] [facility] [place] [address] Specialty Regional Service Manager Hematology/Oncology 11/29/24 Rsaheed Perez MD [address] [facility] [place] [address] Physician Hematology/Oncology 11/29/24 Annel Alas, SUPERVISOR STRIPPING Blow Off Worker 01/08/25 Ricardo Alva, RN Specialty Regional Service Manager Hospice & Palliative Medicine 01/23/25 Sheila Freeman, FORENSIC MEDICAL EXAMINER.DEPARTMENT OPERATIONS MANAGER [address] [facility] [place] [phone] Hospice & Palliative Medicine 01/23/25 Survey Manager Relationship Specialty Start Date End Date Carlos Collins FORENSIC MEDICAL EXAMINER-DEPARTMENT OPERATIONS MANAGER [facility] [place] [address] PCP - General Nurse Practitioner 11/08/24 Survey Manager Relationship Specialty Start Date End Date Carlos Collins APRN-ABBEY [address] [place] [address] PCP - General Nurse Practitioner 11/08/24 Goals (unrecognized section and content) Type Treatment [...] or prosecute any alcohol or drug abuse patient.[facility] HospitalIn the event this information is protected by the Federal Confidentiality of Alcohol and Drug Abuse Patient Records regulations: The Federal rules restrict any use of the information to criminally investigate or prosecute any alcohol or drug abuse patient.[facility] HospitalIn the event this information is protected by the Federal Confidentiality of Alcohol and Drug Abuse Patient Records regulations: The Federal rules restrict any use of the information to criminally investigate or prosecute any alcohol or drug abuse patient.[facility] HospitalIn the event this information is protected by the Federal Confidentiality of Alcohol and Drug Abuse Patient Records regulations: The Federal rules restrict any use of the information to criminally investigate or prosecute any alcohol or drug abuse patient.[facility] HospitalIn the event this information is protected by the Federal Confidentiality of Alcohol and Drug Abuse Patient Records regulations: The Federal rules restrict any use of the information to criminally investigate or prosecute any alcohol or drug abuse patient.[facility] HospitalIn the event this information is protected by the Federal Confidentiality of Alcohol and Drug Abuse Patient Records regulations: The Federal rules restrict any use of the information to criminally investigate or prosecute any alcohol or drug abuse patient.[facility] HospitalIn the event this information is protected by the Federal Confidentiality of Alcohol and Drug Abuse Patient Records regulations: The Federal rules restrict any use of the information to criminally investigate or prosecute any alcohol or drug abuse patient.[facility] HospitalIn the event this information is protected by the Federal Confidentiality of Alcohol and Drug Abuse Patient Records regulations: The Federal rules restrict any use of the information to criminally investigate or prosecute any alcohol or drug abuse patient.[facility] HospitalIn the event this information is protected by the Federal Confidentiality of Alcohol and Drug Abuse Patient Records regulations: The Federal rules restrict any use of the information to criminally investigate or prosecute any alcohol or drug abuse patient.[facility] HospitalIn the event this information is protected by the Federal Confidentiality of Alcohol and Drug Abuse Patient Records regulations: The Federal rules restrict any use of the information to criminally investigate or prosecute any alcohol or drug abuse patient.[facility] HospitalIn the event this information is protected by the Federal Confidentiality of Alcohol and Drug Abuse Patient Records regulations: The Federal rules restrict any use of the information to criminally investigate or prosecute any alcohol or drug abuse patient.[facility] HospitalIn the event this information is protected by the Federal Confidentiality of Alcohol and Drug Abuse Patient Records regulations: The Federal rules restrict any use of the information to criminally investigate or prosecute any alcohol or drug abuse patient.[facility] HospitalIn the event this information is protected by the Federal Confidentiality of Alcohol and Drug Abuse Patient Records regulations: The Federal rules restrict any use of the information to criminally investigate or prosecute any alcohol or drug abuse patient.[facility] HospitalIn the event this information is protected by the Federal Confidentiality of Alcohol and Drug Abuse Patient Records regulations: The Federal rules restrict any use of the information to criminally investigate or prosecute any alcohol or drug abuse patient.[facility] HospitalIn the event this information is protected by the Federal Confidentiality of Alcohol and Drug Abuse Patient Records regulations: The Federal rules restrict any use of the information to criminally investigate or prosecute any alcohol or drug abuse patient.[facility] HospitalIn the event this information is protected by the Federal Confidentiality of Alcohol and Drug Abuse Patient Records regulations: The Federal rules restrict any use of the information to criminally investigate or prosecute any alcohol or drug abuse patient.[facility] HospitalIn the event this information is protected by the Federal Confidentiality of Alcohol and Drug Abuse Patient Records regulations: The Federal rules restrict any use of the information to criminally investigate or prosecute any alcohol or drug abuse patient.[facility] HospitalIn the event this information is protected by the Federal Confidentiality of Alcohol and Drug Abuse Patient Records regulations: The Federal rules restrict any use of the information to criminally investigate or prosecute any alcohol or drug abuse patient.[facility] HospitalIn the event this information is protected by the Federal Confidentiality of Alcohol and Drug Abuse Patient Records regulations: The Federal rules restrict any use of the information to criminally investigate or prosecute any alcohol or drug abuse patient.[facility] HospitalIn the event this information is protected by the Federal Confidentiality of Alcohol and Drug Abuse Patient Records regulations: The Federal rules restrict any use of the information to criminally investigate or prosecute any alcohol or drug abuse patient.[facility] HospitalIn the event this information is protected by the Federal Confidentiality of Alcohol and Drug Abuse Patient Records regulations: The Federal rules restrict any use of the information to criminally investigate or prosecute any alcohol or drug abuse patient.[facility] HospitalIn the event this information is protected by the Federal Confidentiality of Alcohol and Drug Abuse Patient Records regulations: The Federal rules restrict any use of the information to criminally investigate or prosecute any alcohol or drug abuse patient.[facility] HospitalIn the event this information is protected by the Federal Confidentiality of Alcohol and Drug Abuse Patient Records regulations: The Federal rules restrict any use of the information to criminally investigate or prosecute any alcohol or drug abuse patient.[facility] HospitalIn the event this information is protected by the Federal Confidentiality of Alcohol and Drug Abuse Patient Records regulations: The Federal rules restrict any use of the information to criminally investigate or prosecute any alcohol or drug abuse patient.[facility] HospitalIn the event this information is protected by the Federal Confidentiality of Alcohol and Drug Abuse Patient Records regulations: The Federal rules restrict any use of the information to criminally investigate or prosecute any alcohol or drug abuse patient.[facility] HospitalIn the event this information is protected by the Federal Confidentiality of Alcohol and Drug Abuse Patient Records regulations: The Federal rules restrict any use of the information to criminally investigate or prosecute any alcohol or drug abuse patient.[facility] HospitalIn the event this information is protected by the Federal Confidentiality of Alcohol and Drug Abuse Patient Records regulations: The Federal rules restrict any use of the information to criminally investigate or prosecute any alcohol or drug abuse patient.[facility] HospitalIn the event this information is protected by the Federal Confidentiality of Alcohol and Drug Abuse Patient Records regulations: The Federal rules restrict any use of the information to criminally investigate or prosecute any alcohol or drug abuse patient.[facility] HospitalIn the event this information is protected by the Federal Confidentiality of Alcohol and Drug Abuse Patient Records regulations: The Federal rules restrict any use of the information to criminally investigate or prosecute any alcohol or drug abuse patient.[facility] HospitalIn the event this information is protected by the Federal Confidentiality of Alcohol and Drug Abuse Patient Records regulations: The Federal rules restrict any use of the information to criminally investigate or prosecute any alcohol or drug abuse patient.[facility] HospitalIn the event this information is protected by the Federal Confidentiality of Alcohol and Drug Abuse Patient Records regulations: The Federal rules restrict any use of the information to criminally investigate or prosecute any alcohol or drug abuse patient.[facility] HospitalIn the event this information is protected by the Federal Confidentiality of Alcohol and Drug Abuse Patient Records regulations: The Federal rules restrict any use of the information to criminally investigate or prosecute any alcohol or drug abuse patient.[facility] HospitalIn the event this information is protected by the Federal Confidentiality of Alcohol and Drug Abuse Patient Records regulations: The Federal rules restrict any use of the information to criminally investigate or prosecute any alcohol or drug abuse patient.[facility] HospitalIn the event this information is protected by the Federal Confidentiality of Alcohol and Drug Abuse Patient Records regulations: The Federal rules restrict any use of the information to criminally investigate or prosecute any alcohol or drug abuse patient.[facility] HospitalIn the event this information is protected by the Federal Confidentiality of Alcohol and Drug Abuse Patient Records regulations: The Federal rules restrict any use of the information to criminally investigate or prosecute any alcohol or drug abuse patient.[facility] HospitalIn the event this information is protected by the Federal Confidentiality of Alcohol and Drug Abuse Patient Records regulations: The Federal rules restrict any use of the information to criminally investigate or prosecute any alcohol or drug abuse patient.[facility] HospitalIn the event this information is protected by the Federal Confidentiality of Alcohol and Drug Abuse Patient Records regulations: The Federal rules restrict any use of the information to criminally investigate or prosecute any alcohol or drug abuse patient.[facility] HospitalIn the event this information is protected by the Federal Confidentiality of Alcohol and Drug Abuse Patient Records regulations: The Federal rules restrict any use of the information to criminally investigate or prosecute any alcohol or drug abuse patient.[facility] HospitalIn the event this information is protected by the Federal Confidentiality of Alcohol and Drug Abuse Patient Records regulations: The Federal rules restrict any use of the information to criminally investigate or prosecute any alcohol or drug abuse patient.[facility] HospitalIn the event this information is protected by the Federal Confidentiality of Alcohol and Drug Abuse Patient Records regulations: The Federal rules restrict any use of the information to criminally investigate or prosecute any alcohol or drug abuse patient.[facility] HospitalIn the event this information is protected by the Federal Confidentiality of Alcohol and Drug Abuse Patient Records regulations: The Federal rules restrict any use of the information to criminally investigate or prosecute any alcohol or drug abuse patient.[facility] HospitalIn the event this information is protected by the Federal Confidentiality of Alcohol and Drug Abuse Patient Records regulations: The Federal rules restrict any use of the information to criminally investigate or prosecute any alcohol or drug abuse patient.[facility] HospitalIn the event this information is protected by the Federal Confidentiality of Alcohol and Drug Abuse Patient Records regulations: The Federal rules restrict any use of the information to criminally investigate or prosecute any alcohol or drug abuse patient.[facility] HospitalIn the event this information is protected by the Federal Confidentiality of Alcohol and Drug Abuse Patient Records regulations: The Federal rules restrict any use of the information to criminally investigate or prosecute any alcohol or drug abuse patient.[facility] HospitalIn the event this information is protected by the Federal Confidentiality of Alcohol and Drug Abuse Patient Records regulations: The Federal rules restrict any use of the information to criminally investigate or prosecute any alcohol or drug abuse patient.[facility] HospitalIn the event this information is protected by the Federal Confidentiality of Alcohol and Drug Abuse Patient Records regulations: The Federal rules restrict any use of the information to criminally investigate or prosecute any alcohol or drug abuse patient.[facility] HospitalIn the event this information is protected by the Federal Confidentiality of Alcohol and Drug Abuse Patient Records regulations: The Federal rules restrict any use of the information to criminally investigate or prosecute any alcohol or drug abuse patient.[facility] HospitalIn the event this information is protected by the Federal Confidentiality of Alcohol and Drug Abuse Patient Records regulations: The Federal rules restrict any use of the information to criminally investigate or prosecute any alcohol or drug abuse patient.[facility] HospitalIn the event this information is protected by the Federal Confidentiality of Alcohol and Drug Abuse Patient Records regulations: The Federal rules restrict any use of the information to criminally investigate or prosecute any alcohol or drug abuse patient.[facility] HospitalIn the event this information is protected by the Federal Confidentiality of Alcohol and Drug Abuse Patient Records regulations: The Federal rules restrict any use of the information to criminally investigate or prosecute any alcohol or drug abuse patient.[facility] HospitalIn the event this information is protected by the Federal Confidentiality of Alcohol and Drug Abuse Patient Records regulations: The Federal rules restrict any use of the information to criminally investigate or prosecute any alcohol or drug abuse patient.[facility] HospitalIn the event this information is protected by the Federal Confidentiality of Alcohol and Drug Abuse Patient Records regulations: The Federal rules restrict any use of the information to criminally investigate or prosecute any alcohol or drug abuse patient.[facility] HospitalIn the event this information is protected by the Federal Confidentiality of Alcohol and Drug Abuse Patient Records regulations: The Federal rules restrict any use of the information to criminally investigate or prosecute any alcohol or drug abuse patient.[facility] HospitalIn the event this information is protected by the Federal Confidentiality of Alcohol and Drug Abuse Patient Records regulations: The Federal rules restrict any use of the information to criminally investigate or prosecute any alcohol or drug abuse patient.[facility] HospitalIn the event this information is protected by the Federal Confidentiality of Alcohol and Drug Abuse Patient Records regulations: The Federal rules restrict any use of the information to criminally investigate or prosecute any alcohol or drug abuse patient.[facility] HospitalIn the event this information is protected by the Federal Confidentiality of Alcohol and Drug Abuse Patient Records regulations: The Federal rules restrict any use of the information to criminally investigate or prosecute any alcohol or drug abuse patient.[facility] HospitalIn the event this information is protected by the Federal Confidentiality of Alcohol and Drug Abuse Patient Records regulations: The Federal rules restrict any use of the information to criminally investigate or prosecute any alcohol or drug abuse patient.[facility] HospitalIn the event this information is protected by the Federal Confidentiality of Alcohol and Drug Abuse Patient Records regulations: The Federal rules restrict any use of the information to criminally investigate or prosecute any alcohol or drug abuse patient.[facility] HospitalIn the event this information is protected by the Federal Confidentiality of Alcohol and Drug Abuse Patient Records regulations: The Federal rules restrict any use of the information to criminally investigate or prosecute any alcohol or drug abuse patient.[facility] HospitalIn the event this information is protected by the Federal Confidentiality of Alcohol and Drug Abuse Patient Records regulations: The Federal rules restrict any use of the information to criminally investigate or prosecute any alcohol or drug abuse patient.[facility] HospitalIn the event this information is protected by the Federal Confidentiality of Alcohol and Drug Abuse Patient Records regulations: The Federal rules restrict any use of the information to criminally investigate or prosecute any alcohol or drug abuse patient.[facility] HospitalIn the event this information is protected by the Federal Confidentiality of Alcohol and Drug Abuse Patient Records regulations: The Federal rules restrict any use of the information to criminally investigate or prosecute any alcohol or drug abuse patient.[facility] HospitalIn the event this information is protected by the Federal Confidentiality of Alcohol and Drug Abuse Patient Records regulations: The Federal rules restrict any use of the information to criminally investigate or prosecute any alcohol or drug abuse patient.[facility] HospitalIn the event this information is protected by the Federal Confidentiality of Alcohol and Drug Abuse Patient Records regulations: The Federal rules restrict any use of the information to criminally investigate or prosecute any alcohol or drug abuse patient.[facility] HospitalIn the event this information is protected by the Federal Confidentiality of Alcohol and Drug Abuse Patient Records regulations: The Federal rules restrict any use of the information to criminally investigate or prosecute any alcohol or drug abuse patient.[facility] HospitalIn the event this information is protected by the Federal Confidentiality of Alcohol and Drug Abuse Patient Records regulations: The Federal rules restrict any use of the information to criminally investigate or prosecute any alcohol or drug abuse patient.[facility] HospitalIn the event this information is protected by the Federal Confidentiality of Alcohol and Drug Abuse Patient Records regulations: The Federal rules restrict any use of the information to criminally investigate or prosecute any alcohol or drug abuse patient.[facility] HospitalIn the event this information is protected by the Federal Confidentiality of Alcohol and Drug Abuse Patient Records regulations: The Federal rules restrict any use of the information to criminally investigate or prosecute any alcohol or drug abuse patient.[facility] HospitalIn the event this information is protected by the Federal Confidentiality of Alcohol and Drug Abuse Patient Records regulations: The Federal rules restrict any use of the information to criminally investigate or prosecute any alcohol or drug abuse patient.[facility] HospitalIn the event this information is protected by the Federal Confidentiality of Alcohol and Drug Abuse Patient Records regulations: The Federal rules restrict any use of the information to criminally investigate or prosecute any alcohol or drug abuse patient.[facility] HospitalIn the event this information is protected by the Federal Confidentiality of Alcohol and Drug Abuse Patient Records regulations: The Federal rules restrict any use of the information to criminally investigate or prosecute any alcohol or drug abuse patient.[facility] HospitalIn the event this information is protected by the Federal Confidentiality of Alcohol and Drug Abuse Patient Records regulations: The Federal rules restrict any use of the information to criminally investigate or prosecute any alcohol or drug abuse patient.[facility] HospitalIn the event this information is protected by the Federal Confidentiality of Alcohol and Drug Abuse Patient Records regulations: The Federal rules restrict any use of the information to criminally investigate or prosecute any alcohol or drug abuse patient.[facility] HospitalIn the event this information is protected by the Federal Confidentiality of Alcohol and Drug Abuse Patient Records regulations: The Federal rules restrict any use of the information to criminally investigate or prosecute any alcohol or drug abuse patient.[facility] HospitalIn the event this information is protected by the Federal Confidentiality of Alcohol and Drug Abuse Patient Records regulations: The Federal rules restrict any use of the information to criminally investigate or prosecute any alcohol or drug abuse patient.[facility] HospitalIn the event this information is protected by the Federal Confidentiality of Alcohol and Drug Abuse Patient Records regulations: The Federal rules restrict any use of the information to criminally investigate or prosecute any alcohol or drug abuse patient.[facility] HospitalIn the event this information is protected by the Federal Confidentiality of Alcohol and Drug Abuse Patient Records regulations: The Federal rules restrict any use of the information to criminally investigate or prosecute any alcohol or drug abuse patient.[facility] HospitalIn the event this information is protected by the Federal Confidentiality of Alcohol and Drug Abuse Patient Records regulations: The Federal rules restrict any use of the information to criminally investigate or prosecute any alcohol or drug abuse patient.[facility] HospitalIn the event this information is protected by the Federal Confidentiality of Alcohol and Drug Abuse Patient Records regulations: The Federal rules restrict any use of the information to criminally investigate or prosecute any alcohol or drug abuse patient.[facility] HospitalIn the event this information is protected by the Federal Confidentiality of Alcohol and Drug Abuse Patient Records regulations: The Federal rules restrict any use of the information to criminally investigate or prosecute any alcohol or drug abuse patient.[facility] HospitalIn the event this information is protected by the Federal Confidentiality of Alcohol and Drug Abuse Patient Records regulations: The Federal rules restrict any use of the information to criminally investigate or prosecute any alcohol or drug abuse patient.[facility] HospitalIn the event this information is protected by the Federal Confidentiality of Alcohol and Drug Abuse Patient Records regulations: The Federal rules restrict any use of the information to criminally investigate or prosecute any alcohol or drug abuse patient.[facility] HospitalIn the event this information is protected by the Federal Confidentiality of Alcohol and Drug Abuse Patient Records regulations: The Federal rules restrict any use of the information to criminally investigate or prosecute any alcohol or drug abuse patient.[facility] HospitalIn the event this information is protected by the Federal Confidentiality of Alcohol and Drug Abuse Patient Records regulations: The Federal rules restrict any use of the information to criminally investigate or prosecute any alcohol or drug abuse patient.[facility] HospitalIn the event this information is protected by the Federal Confidentiality of Alcohol and Drug Abuse Patient Records regulations: The Federal rules restrict any use of the information to criminally investigate or prosecute any alcohol or drug abuse patient.[facility] HospitalIn the event this information is protected by the Federal Confidentiality of Alcohol and Drug Abuse Patient Records regulations: The Federal rules restrict any use of the information to criminally investigate or prosecute any alcohol or drug abuse patient.[facility] HospitalIn the event this information is protected by the Federal Confidentiality of Alcohol and Drug Abuse Patient Records regulations: The Federal rules restrict any use of the information to criminally investigate or prosecute any alcohol or drug abuse patient.[facility] HospitalIn the event this information is protected by the Federal Confidentiality of Alcohol and Drug Abuse Patient Records regulations: The Federal rules restrict any use of the information to criminally investigate or prosecute any alcohol or drug abuse patient.[facility] HospitalIn the event this information is protected by the Federal Confidentiality of Alcohol and Drug Abuse Patient Records regulations: The Federal rules restrict any use of the information to criminally investigate or prosecute any alcohol or drug abuse patient.[facility] HospitalIn the event this information is protected by the Federal Confidentiality of Alcohol and Drug Abuse Patient Records regulations: The Federal rules restrict any use of the information to criminally investigate or prosecute any alcohol or drug abuse patient.[facility] HospitalIn the event this information is protected by the Federal Confidentiality of Alcohol and Drug Abuse Patient Records regulations: The Federal rules restrict any use of the information to criminally investigate or prosecute any alcohol or drug abuse patient.[facility] HospitalIn the event this information is protected by the Federal Confidentiality of Alcohol and Drug Abuse Patient Records regulations: The Federal rules restrict any use of the information to criminally investigate or prosecute any alcohol or drug abuse patient.[facility] HospitalIn the event this information is protected by the Federal Confidentiality of Alcohol and Drug Abuse Patient Records regulations: The Federal rules restrict any use of the information to criminally investigate or prosecute any alcohol or drug abuse patient.[facility] HospitalIn the event this information is protected by the Federal Confidentiality of Alcohol and Drug Abuse Patient Records regulations: The Federal rules restrict any use of the information to criminally investigate or prosecute any alcohol or drug abuse patient.[facility] HospitalIn the event this information is protected by the Federal Confidentiality of Alcohol and Drug Abuse Patient Records regulations: The Federal rules restrict any use of the information to criminally investigate or prosecute any alcohol or drug abuse patient.[facility] HospitalIn the event this information is protected by the Federal Confidentiality of Alcohol and Drug Abuse Patient Records regulations: The Federal rules restrict any use of the information to criminally investigate or prosecute any alcohol or drug abuse patient.[facility] HospitalIn the event this information is protected by the Federal Confidentiality of Alcohol and Drug Abuse Patient Records regulations: The Federal rules restrict any use of the information to criminally investigate or prosecute any alcohol or drug abuse patient.[facility] HospitalIn the event this information is protected by the Federal Confidentiality of Alcohol and Drug Abuse Patient Records regulations: The Federal rules restrict any use of the information to criminally investigate or prosecute any alcohol or drug abuse patient.[facility] HospitalIn the event this information is protected by the Federal Confidentiality of Alcohol and Drug Abuse Patient Records regulations: The Federal rules restrict any use of the information to criminally investigate or prosecute any alcohol or drug abuse patient.[facility] HospitalIn the event this information is protected by the Federal Confidentiality of Alcohol and Drug Abuse Patient Records regulations: The Federal rules restrict any use of the information to criminally investigate or prosecute any alcohol or drug abuse patient.[facility] HospitalIn the event this information is protected by the Federal Confidentiality of Alcohol and Drug Abuse Patient Records regulations: The Federal rules restrict any use of the information to criminally investigate or prosecute any alcohol or drug abuse patient.[facility] HospitalIn the event this information is protected by the Federal Confidentiality of Alcohol and Drug Abuse Patient Records regulations: The Federal rules restrict any use of the information to criminally investigate or prosecute any alcohol or drug abuse patient.[facility] HospitalIn the event this information is protected by the Federal Confidentiality of Alcohol and Drug Abuse Patient Records regulations: The Federal rules restrict any use of the information to criminally investigate or prosecute any alcohol or drug abuse patient.[facility] HospitalIn the event this information is protected by the Federal Confidentiality of Alcohol and Drug Abuse Patient Records regulations: The Federal rules restrict any use of the information to criminally investigate or prosecute any alcohol or drug abuse patient.[facility] HospitalIn the event this information is protected by the Federal Confidentiality of Alcohol and Drug Abuse Patient Records regulations: The Federal rules restrict any use of the information to criminally investigate or prosecute any alcohol or drug abuse patient.[facility] HospitalIn the event this information is protected by the Federal Confidentiality of Alcohol and Drug Abuse Patient Records regulations: The Federal rules restrict any use of the information to criminally investigate or prosecute any alcohol or drug abuse patient.[facility] HospitalIn the event this information is protected by the Federal Confidentiality of Alcohol and Drug Abuse Patient Records regulations: The Federal rules restrict any use of the information to criminally investigate or prosecute any alcohol or drug abuse patient.[facility] HospitalIn the event this information is protected by the Federal Confidentiality of Alcohol and Drug Abuse Patient Records regulations: The Federal rules restrict any use of the information to criminally investigate or prosecute any alcohol or drug abuse patient.[facility] HospitalIn the event this information is protected by the Federal Confidentiality of Alcohol and Drug Abuse Patient Records regulations: The Federal rules restrict any use of the information to criminally investigate or prosecute any alcohol or drug abuse patient.[facility] HospitalIn the event this information is protected by the Federal Confidentiality of Alcohol and Drug Abuse Patient Records regulations: The Federal rules restrict any use of the information to criminally investigate or prosecute any alcohol or drug abuse patient.[facility] HospitalIn the event this information is protected by the Federal Confidentiality of Alcohol and Drug Abuse Patient Records regulations: The Federal rules restrict any use of the information to criminally investigate or prosecute any alcohol or drug abuse patient.[facility] HospitalIn the event this information is protected by the Federal Confidentiality of Alcohol and Drug Abuse Patient Records regulations: The Federal rules restrict any use of the information to criminally investigate or prosecute any alcohol or drug abuse patient.[facility] HospitalIn the event this information is protected by the Federal Confidentiality of Alcohol and Drug Abuse Patient Records regulations: The Federal rules restrict any use of the information to criminally investigate or prosecute any alcohol or drug abuse patient.[facility] HospitalIn the event this information is protected by the Federal Confidentiality of Alcohol and Drug Abuse Patient Records regulations: The Federal rules restrict any use of the information to criminally investigate or prosecute any alcohol or drug abuse patient.[facility] HospitalIn the event this information is protected by the Federal Confidentiality of Alcohol and Drug Abuse Patient Records regulations: The Federal rules restrict any use of the information to criminally investigate or prosecute any alcohol or drug abuse patient.[facility] HospitalIn the event this information is protected by the Federal Confidentiality of Alcohol and Drug Abuse Patient Records regulations: The Federal rules restrict any use of the information to criminally investigate or prosecute any alcohol or drug abuse patient.[facility] HospitalIn the event this information is protected by the Federal Confidentiality of Alcohol and Drug Abuse Patient Records regulations: The Federal rules restrict any use of the information to criminally investigate or prosecute any alcohol or drug abuse patient.[facility] HospitalIn the event this information is protected by the Federal Confidentiality of Alcohol and Drug Abuse Patient Records regulations: The Federal rules restrict any use of the information to criminally investigate or prosecute any alcohol or drug abuse patient.[facility] HospitalIn the event this information is protected by the Federal Confidentiality of Alcohol and Drug Abuse Patient Records regulations: The Federal rules restrict any use of the information to criminally investigate or prosecute any alcohol or drug abuse patient.[facility] HospitalIn the event this information is protected by the Federal Confidentiality of Alcohol and Drug Abuse Patient Records regulations: The Federal rules restrict any use of the information to criminally investigate or prosecute any alcohol or drug abuse patient.[facility] HospitalIn the event this information is protected by the Federal Confidentiality of Alcohol and Drug Abuse Patient Records regulations: The Federal rules restrict any use of the information to criminally investigate or prosecute any alcohol or drug abuse patient.[facility] HospitalIn the event this information is protected by the Federal Confidentiality of Alcohol and Drug Abuse Patient Records regulations: The Federal rules restrict any use of the information to criminally investigate or prosecute any alcohol or drug abuse patient.[facility] HospitalIn the event this information is protected by the Federal Confidentiality of Alcohol and Drug Abuse Patient Records regulations: The Federal rules restrict any use of the information to criminally investigate or prosecute any alcohol or drug abuse patient.[facility] HospitalIn the event this information is protected by the Federal Confidentiality of Alcohol and Drug Abuse Patient Records regulations: The Federal rules restrict any use of the information to criminally investigate or prosecute any alcohol or drug abuse patient.[facility] HospitalIn the event this information is protected by the Federal Confidentiality of Alcohol and Drug Abuse Patient Records regulations: The Federal rules restrict any use of the information to criminally investigate or prosecute any alcohol or drug abuse patient.[facility] HospitalIn the event this information is protected by the Federal Confidentiality of Alcohol and Drug Abuse Patient Records regulations: The Federal rules restrict any use of the information to criminally investigate or prosecute any alcohol or drug abuse patient.[facility] HospitalIn the event this information is protected by the Federal Confidentiality of Alcohol and Drug Abuse Patient Records regulations: The Federal rules restrict any use of the information to criminally investigate or prosecute any alcohol or drug abuse patient.[facility] HospitalIn the event this information is protected by the Federal Confidentiality of Alcohol and Drug Abuse Patient Records regulations: The Federal rules restrict any use of the information to criminally investigate or prosecute any alcohol or drug abuse patient.[facility] HospitalIn the event this information is protected by the Federal Confidentiality of Alcohol and Drug Abuse Patient Records regulations: The Federal rules restrict any use of the information to criminally investigate or prosecute any alcohol or drug abuse patient.[facility] HospitalIn the event this information is protected by the Federal Confidentiality of Alcohol and Drug Abuse Patient Records regulations: The Federal rules restrict any use of the information to criminally investigate or prosecute any alcohol or drug abuse patient.[facility] HospitalIn the event this information is protected by the Federal Confidentiality of Alcohol and Drug Abuse Patient Records regulations: The Federal rules restrict any use of the information to criminally investigate or prosecute any alcohol or drug abuse patient.[facility] HospitalIn the event this information is protected by the Federal Confidentiality of Alcohol and Drug Abuse Patient Records regulations: The Federal rules restrict any use of the information to criminally investigate or prosecute any alcohol or drug abuse patient.[facility] HospitalIn the event this information is protected by the Federal Confidentiality of Alcohol and Drug Abuse Patient Records regulations: The Federal rules restrict any use of the information to criminally investigate or prosecute any alcohol or drug abuse patient.[facility] HospitalIn the event this information is protected by the Federal Confidentiality of Alcohol and Drug Abuse Patient Records regulations: The Federal rules restrict any use of the information to criminally investigate or prosecute any alcohol or drug abuse patient.[facility] HospitalIn the event this information is protected by the Federal Confidentiality of Alcohol and Drug Abuse Patient Records regulations: The Federal rules restrict any use of the information to criminally investigate or prosecute any alcohol or drug abuse patient.[facility] HospitalIn the event this information is protected by the Federal Confidentiality of Alcohol and Drug Abuse Patient Records regulations: The Federal rules restrict any use of the information to criminally investigate or prosecute any alcohol or drug abuse patient.[facility] HospitalIn the event this information is protected by the Federal Confidentiality of Alcohol and Drug Abuse Patient Records regulations: The Federal rules restrict any use of the information to criminally investigate or prosecute any alcohol or drug abuse patient.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 LOW HR ISSUES, RECENTLY DIAGNOSED [...] CONSULT OFFICE/OUTPATIENT NEW HIGH MDM 60 MINUTES Rasheed Perez MD [address] [place] [address] [place] [address] Phone: tel: fax: Referral ID Status Reason Start Date Expiration Date V isits Requested Visits Authorized [id number] Closed PCP Requested Referral 11/03/2024 10/27/2025 1 [...] HEAD/BRAIN W/O CONTRAST MATERIAL Rasheed Perez MD [address] [place] [address] [place] [address] Phone: tel: fax: [place] [phone] Referral ID Status Reason Start Date Expiration Date V isits Requested Visits Authorized [id number] Closed Auto-Generate d Referral 11/28/2024 06/13/2025 1 [...] HIGH MDM 60 MINUTES Rasheed Perez MD [address] [place] [address] [place] [address] Phone: tel: fax: Referral ID Status Reason Start Date Expiration Date V isits Requested Visits Authorized [id number] Closed PCP Requested Referral 01/09/2025 01/02/2026 1 1 Reason Comments Care Coordination Hospital Admission Reason Comments Dehydration Weakness Reason Comments Patient Update Dizziness Reason Comments Radiology 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 - Other Etoposide react ion Reason Comments Patient Question Reason Comments Radiotherapy On-treatment Visit Reason Comments Care Coordination Med request Reason Comments Care Coordination Persistent hard hicc ups Reason Comments Follow-up ov/pm d/c [facility]ib med changes ian w pt - aware MB office Device Check Reason Comments Care Coordination Treatment plan Reason Comments Lung Cancer Treatment visit Reason Comments Med Change Request Reason Comments Lab Orders Reason Onset Date Comments Refill Request 02/19/2025 Reason Comments Palliative Care Pain Reason Comments Difficulty Swallowing Reason Comments Nutrition Counseling Reason Comments Financial Assistance Reason Onset Date Comments radiation completed 02/27/2025 Reason Onset Date Comments PT CX 03/2603/26/2025 Reason Onset Date Comments Cx PT 03/29/25 03/28/2025 Confirmation 03/29/2025 FOR RECORDS PERTAINING TO PATIENTS WHO ARE [...] BE BASED ON THE PRIMARY CLINICAL RECORDS. [employer] [facility]. provides no warranty or guarantee of the accuracy or completeness of information in this document.
--- NOTE | 2025-04-02 13:21 | CT_ITS ---
The [address] [address] Patient Name: JATIN KOCH MRN: [id number] date: 1960 Sex: M Assigned Patient Location: ER Current Patient Location: Accession/Order Number: [id number] Exam Date: 04/02/2025 14:14 Report Date: 04/02/2025 14:50 At the request of: REJI PRECIADO Procedure: CT angio chest CT PULMONARY ANGIOGRAM WITH CONTRAST CLINICAL HISTORY: hypoxia, shortness of breath COMPARISON: 02/18/2025 TECHNIQUE: Spiral images were obtained through the chest following intravenous administration of 100 mL of Omnipaque 350. Images were reviewed using both narrow and wide window settings. Sagittal, coronal and 3 D volume-rendered reconstructions were performed and reviewed. This CT exam was performed using one or more following dose reduction techniques: Automated exposure control, adjustment of the mA and/or kV according to patient size, or use of iterative reconstruction technique. FINDINGS: There is some artifact from a left-sided pacemaker. The heart is top normal in size. Coronary disease is noted. There is no pericardial effusion. No aortic aneurysm or dissection is seen. There is adequate opacification of the pulmonary arteries. No emboli are identified. There is still thickening of the wall of the mid and distal esophagus. There are similar mediastinal lymph nodes, largest in the subcarinal region. Right hilar lymph nodes are also present. Minor gynecomastia is seen. Degenerative changes are visualized at the spine. There is developing airspace opacity with air bronchograms at the basilar right upper lobe and to lesser extent the right middle lobe. There is also developing air space opacity in the left perihilar region and extending into the upper and lower lobes. There is still airspace opacity at the posterior medial left lower lobe and at the superior segment of the right lower lobe medially where there could be minimal improvement. The 1 cm nodule at the medial right costophrenic angle is new. A trace amount of pleural fluid is present on the right. No pneumothorax is seen. Limited cuts through the upper abdomen show no contributory abnormality. CT/CT angio chest IMPRESSION: NO CT EVIDENCE OF PULMONARY EMBOLISM. CONTINUED ESOPHAGEAL WALL THICKENING WELL MEDIASTINAL AND RIGHT HILAR ADENOPATHY. SLIGHT IMPROVEMENT OF RIGHT LOWER LOBE PARENCHYMAL CHANGES SEEN PREVIOUSLY THOUGH DEVELOPMENT OF ADDITIONAL MULTIFOCAL AIRSPACE OPACITIES AND RIGHT LOWER LOBE LUNG NODULE. TRACE AMOUNT OF RIGHT PLEURAL FLUID. Impression dictated by: Josseline Shahid M.D. 04/02/2025 2:50 PM Dictation Location: [place] [address] Electronically authenticated by: [id number] Y Date: 04/02/2025 14:50
--- NOTE | 2025-04-02 13:25 | ECG_ITS ---
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 Measurements Intervals Fowler Rate: 103 P: 45 NC: 134 QRS: -81 QRSD: 150 T: 83 QT: 394 QTc: 454 Interpretive Statements 1120 Sinus tachycardia VENTRICULAR-PACED RHYTHM 9150 abnormal ECG Compared to ECG 02/18/2025 17:41:49 No significant changes Electronically Signed On 04-02-2025 18:03:43 EDT by AGATHA SALAZAR M.D.
[2025-04-02] MEDS: METHYLPREDNISOLONE SOD SUCC PF 125 MG/2 ML VIAL IVP (13:37)
[2025-04-02 13:38] LABS: Hematocrit 24.0 % (42.0-54.0); Mean Corpuscular HGB Conc 28.8 g/dL (29.9-35.2); Mean Corpuscular Hemoglobin 25.8 pg (25.9-34.0); Mean Corpuscular Volume 89.9 fL (80.0-94.0); Platelet Count 302 10^3/uL (150-450); Red Blood Count 2.67 10^6/uL (4.70-6.10); White Blood Count 8.8 10^3/uL (4.0-11.0)
[2025-04-02] MEDS: IPRATROPIUM/ALBUTEROL SULFATE 3 ML AMPUL.NEB IH ×2 (13:44→22:15)
[2025-04-02 13:45] LABS: Hemoglobin 6.9 g/dL (14.0-18.0)
--- NOTE | 2025-04-02 13:54 | ED.GENADUL1 ---
HPI HPI - General Adult General Chief complaint: Shortness of Breath/Dyspnea Stated complaint: SOB CHEST PAIN Time Seen by Provider: 04/02/25 13:14 Source: patient and family Mode of arrival: Wheelchair Limitations: no limitations History of Present Illness HPI narrative: Patient is a 64-year-old male with a past medical history of right lower lobe lung cancer, pacemaker that presents to the emergency department with his with complaints of oxygen desaturations after coughing fits. Patient's helps provide some of the history as patient is short of breath. She states that a week ago Wednesday he started having increased coughing and coughing jags where he would desaturate and once the episode was over would recover. Wednesday he also started coughing up a cardenas sputum. She also reports Wednesday and Wednesday he was having fevers Tmax 101.7. She does spotcheck his oxygen saturation. His oncologist is Dr. Perez with [facility]. They did call his office last week and labs were ordered and he was started on Levaquin. He was evaluated in this emergency department last month for chest pain and shortness of breath that ended up being radiation esophagitis. He was started on Protonix and Carafate for this. He has been off his Carafate for 5 days while he was on the Levaquin. He has finished with the antibiotic. Yesterday his reports he did not have any issues with coughing or desaturation. Today it seemed to worsen and he had a coughing episode where he desaturated and then did not recover. His oxygen saturations on room air were in the 80s. He did finish radiation and chemotherapy about 4 weeks ago. He is supposed to start immunotherapy tomorrow. Related Data Home Medications ?Medication ?Instructions ?Recorded ?Confirmed allopurinol 300 mg tablet 300 mg PO BID 02/18/25 04/02/25 benzonatate 100 mg capsule 200 mg PO Q8H PRN cough 02/18/25 04/02/25 colchicine 0.6 mg tablet 0.6 mg PO DAILY 02/18/25 04/02/25 cyclobenzaprine 10 mg tablet 10 mg PO BEDTIME PRN muscle spasm 02/18/25 04/02/25 ipratropium bromide 21 mcg (0.03 2 spray intranasal BID 02/18/25 04/02/25 %) nasal spray metoprolol succinate 50 mg 50 mg PO DAILY 02/18/25 04/02/25 tablet,extended release 24 hr midodrine 2.5 mg tablet 2.5 mg PO TIDWM 02/18/25 04/02/25 mirtazapine 7.5 mg tablet 7.5 mg PO BEDTIME 02/18/25 04/02/25 oxycodone 5 mg tablet 5 mg PO Q4H PRN pain 02/18/25 04/02/25 sennosides 8.6 mg-docusate sodium 1 tab PO BID 02/18/25 04/02/25 50 mg tablet (Senna Plus) sertraline 50 mg tablet 50 mg PO DAILY 02/18/25 04/02/25 esomeprazole magnesium 40 mg 40 mg PO DAILY 04/02/25 04/02/25 capsule,delayed release fentanyl 25 mcg/hr transdermal 1 patch transdermal Q72H 04/02/25 04/02/25 patch sucralfate 1 gram tablet 1 g PO ACHS 04/02/25 04/02/25 Previous Rx's ?Medication ?Instructions ?Recorded pantoprazole 40 mg tablet,delayed 40 mg PO DAILY 4 weeks #28 tabs 02/18/25 release (Protonix) Allergies Allergy/AdvReac Type Severity Reaction Status Date / Time codeine Allergy Severe Flushing Verified 04/02/25 12:02 cremophor el (polyethoxlated Allergy Anaphylaxis Verified 04/02/25 12:02 castor paclitaxel (From Taxol) Allergy Anaphylaxis Verified 04/02/25 12:02 polysorbate 80 Allergy Anaphylaxis Verified 04/02/25 12:02 sulfamethoxazole (From AdvReac Severe difficulty Verified 04/02/25 12:02 Bactrim) urinating trimethoprim (From Bactrim) AdvReac Severe Unknown Verified 04/02/25 12:02 Opioid HPI Opioid Management Most Recent Opioid Data: Last Pain Scale 8 02/18/25, 17:37 Last ORT Total Score 0 Today, 17:12 Last ORT Risk Category Low Risk Today, 17:12 Review of Systems ROS Status of ROS 10 or more systems reviewed and unremarkable except as noted in history and below [facility] Medical History (Updated 04/02/25 @ 17:29 by SHAMA Hampton) Severe protein-calorie malnutrition ?E43 - Unspecified severe protein-calorie malnutrition (ICD-10) Hypomagnesemia ?E83.42 - Hypomagnesemia (ICD-10) Iron deficiency anemia ?D50.9 - Iron deficiency anemia, unspecified (ICD-10) Orthostatic hypotension ?I95.1 - Orthostatic hypotension (ICD-10) Right bundle branch block ?I45.10 - Unspecified right bundle-branch block (ICD-10) Intraventricular conduction delay ?I45.9 - Conduction disorder, unspecified (ICD-10) Squamous cell lung cancer ?C34.90 - Malignant neoplasm of unspecified part of unspecified bronchus or lung (ICD-10) Immune deficiency disorder ?D84.9 - Immunodeficiency, unspecified (ICD-10) Vertigo ?R42 - Dizziness and giddiness (ICD-10) Recurrent syncope ?R55 - Syncope and collapse (ICD-10) Acute kidney injury ?N17.9 - Acute kidney failure, unspecified (ICD-10) Leukocytosis ?D72.829 - Elevated white blood cell count, unspecified (ICD-10) Respiratory distress ?R06.03 - Acute respiratory distress (ICD-10) Lactic acidosis ?E87.20 - Acidosis, unspecified (ICD-10) Lung cancer, lower lobe ?C34.30 - Malignant neoplasm of lower lobe, unspecified bronchus or lung (ICD-10) RLL pneumonia ?J18.9 - Pneumonia, unspecified organism (ICD-10) Carpal tunnel syndrome ?G56.00 - Carpal tunnel syndrome, unspecified upper limb (ICD-10) Back pain ?M54.9 - Dorsalgia, unspecified (ICD-10) Arthritis ?M19.90 - Unspecified osteoarthritis, unspecified site (ICD-10) Snores ?R06.83 - Snoring (ICD-10) Sleep apnea ?G47.30 - Sleep apnea, unspecified (ICD-10) Influenza ?J11.1 - Influenza due to unidentified influenza virus with other respiratory manifestations (ICD-10) Right lower lobe lung mass ?R91.8 - Other nonspecific abnormal finding of lung field (ICD-10) Skin cancer ?C44.90 - Unspecified malignant neoplasm of skin, unspecified (ICD-10) Hypoxia ?R09.02 - Hypoxemia (ICD-10) 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 - Shortness of breath (ICD-10) ?U09.9 - Post covid-19 condition, unspecified (ICD-10) HTN (hypertension) ?I10 - Essential (primary) hypertension (ICD-10) EKRR (dyspnea on exertion) ?R06.09 - Other forms of dyspnea (ICD-10) Pneumonia ?J18.9 - Pneumonia, unspecified organism (ICD-10) COVID-19 ?U07.1 - COVID-19 (ICD-10) History of COVID-19 ?Z86.16 - Personal history of COVID-19 (ICD-10) Surgical History H/O transurethral resection of prostate ?Z98.890 - Other specified postprocedural states (ICD-10) ?Z90.79 - Acquired absence of other genital organ(s) (ICD-10) History of colonoscopy ?Z98.890 - Other specified postprocedural states (ICD-10) History of myringotomy ?Z98.890 - Other specified postprocedural states (ICD-10) History of carpal tunnel release ?Z98.890 - Other specified postprocedural states (ICD-10) History of carpal tunnel surgery ?Z98.890 - Other specified postprocedural states (ICD-10) History of tonsillectomy ?Z90.89 - Acquired absence of other organs (ICD-10) Family History (Updated 10/06/24 @ 23:50 by Svetlana Kimball RN) Father Family history of myocardial infarction Son Family history of stroke Other Family history of CHF (congestive heart failure) Social History (Updated 11/04/24 @ 02:55 by Mary Ellen Mary) Within the past year, how often did you have a drink containing alcohol: never Score interpretation: A score less than 4 is consistent with normal alcohol consumption. Smoking status: Former smoker Non-prescribed substance use: denies use Previous occupational history: retired Highest level of school completed/degree received: Associate degree: academic program Are you now , , , , never or living with a partner: In a typical week, how many times do you talk on the telephone with family, friends, or neighbors: once per week How often do you get together with friends or relatives: once per week Little interest or pleasure in doing things: not at all Feeling down, depressed, or hopeless: not at all Do you think of yourself as: straight/heterosexual Gender Identity: male Exam Narrative Exam Narrative: General: No distress, laying on the ED cart with eyes closed Skin: Warm, dry, pallor. No rash. Head: Normocephalic, atraumatic. Neck: Supple, non-tender. Eye: Pupils are equal, round and EOMI. No scleral icterus. Ears, Nose, Mouth, and Throat: No nasal mucosal hypertrophy. Oral mucosa is moist, no posterior oropharynx erythema, uvula is mid-line Cardiovascular: Regular Rate and Rhythm without murmur, gallop or rub. Respiratory: No accessory muscle use, mild respiratory distress, speaking in 1 or 2 words at a time Lungs are clear to auscultation, no wheezing, rales or rhonchi on left, wheezing throughout right lung lobes Chest Wall: Mild tenderness with palpation Musculoskeletal: Full ROM of all extremities, no calf or popliteal tenderness GI: Abdomen is soft, non-distended, non tender to palpation. No masses appreciated. No rebound, guarding, or rigidity noted. Neurological: A&O x4. No cranial nerve dysfunction observed. No truncal ataxia. Moves all extremities. Sensation intact. Psychiatric: Cooperative and interactive. Normal mood and affect. Constitutional Vital Signs, click to edit/add: Last Vital Signs Temp 98.3 F 04/02/25 17:12 Pulse 109 H 04/02/25 17:12 Resp 18 04/02/25 17:12 BP 115/66 04/02/25 17:12 Pulse Ox 96 04/02/25 17:18 O2 Del Method Nasal Cannula 04/02/25 17:18 O2 Flow Rate 2 04/02/25 17:18 Course Vital Signs Vital signs: Vital Signs Temperature 99.3 F 04/02/25 11:56 Pulse Rate 116 H 04/02/25 11:56 Respiratory Rate 20 04/02/25 11:56 Blood Pressure 98/65 04/02/25 11:56 Pulse Oximetry 92 L 04/02/25 11:56 Oxygen Delivery Method Room Air 04/02/25 11:56 Temperature 98.3 F 04/02/25 17:12 Pulse Rate 109 H 04/02/25 17:12 Respiratory Rate 18 04/02/25 17:12 Blood Pressure 115/66 04/02/25 17:12 Pulse Oximetry 96 04/02/25 17:18 Oxygen Delivery Method Nasal Cannula 04/02/25 17:18 Oxygen Delivery Flow Rate 2 04/02/25 17:18 Medical Decision Making MDM Narrative Medical decision making narrative: This is a 64-year-old male with a past medical history of right lower lobe cancer, radiation esophagitis, and pacemaker that presented to the emergency department with his with complaints of chest pain, shortness of breath, and oxygen desaturations at home. Patient had an increase in coughing a week ago today on Wednesday with reports of cardenas sputum and fevers, Tmax 101.7. His oncologist Dr. Perez was notified and labs were done. Levaquin was started for 5 days and he is finished this already. The coughing seemed to improve yesterday. Today he had another coughing episode with oxygen desaturation that did not recover. His oxygen saturation on room air remained in the 80s. He finished his radiation and chemotherapy about 4 weeks ago. He is scheduled to start immunotherapy tomorrow. On arrival patient is laying flat on the ED cart, eyes closed, speaks in few word sentences, appears short of breath, mild respiratory distress. There is wheezing throughout his right lung lobes, no wheezing rales or rhonchi on the left. He is tachycardic on arrival, 103-116, BP is 98/65. Temperature is afebrile at 99.3. O2 saturations about 89-91 on room air, 2 L applied and patient now 98%. He does not wear home O2. IV placed, CBC, CMP, troponin, blood cultures, lactate, BNP, influenza A/B and COVID-19 ordered. CTA Chest ordered. EKG on arrival paced rhythm. Labs CBC: Hgb 6.9 anemic, WBC 8.8 with left shift, segmented neutrophil %, 88, neutrophils 7.74 10x 3 CMP: BUN 26, baseline around 11 Trop: 8.5, wnl Influenza A/B, COVID-19: Negative CTA chest: No evidence of PE, multifocal airspace opacities, new development of 1 cm nodule at the medial right costophrenic angle. Duo Neb and Solumedrol ordered on arrival. On reevaluation wheezing has mildly improved, patient reports some improvement, still on 2 L to maintain saturations in the 90s. Rhonchi still noted bilaterally, more so in the right lung hartmann. Repeat breathing treatment ordered. Anemia - Hgb 6.9, was 6.9 on 03/03/2025?did get 1 unit of packed red blood cells that brought hemoglobin up to 8.2, trace right pleural effusion Hospital-acquired pneumonia - WBC 8.8 with left shift - On 2L NC to maintain O2 saturations above 95%, high flow O2 ordered - Will start on Vanc - MRSA swab ordered I spoke with patient's oncologist Dr. Perez who is okay with plan for 1 unit of packed red blood cells and to start IV antibiotics here. He recommending attempting to get a sputum culture as well. Antibiotics should cover hospital-acquired pneumonia as he has been in and out of the hospital a lot recently. He requested that the hospitalist call him tomorrow with an update. I then did speak with Dr. Hussein, hospitalist here who will admit patient for further treatment for the above. Patient was transferred to the stepdown floor in fair condition. Differential Diagnosis Differential Diagnosis: Pulmonary embolism, postinfectious bronchitis/pneumonia, radiation pneumoni Lab Data Lab results reviewed: Yes I reviewed the patient's lab results Labs: Lab Results 04/02/25 04/02/25 04/02/25 Range/Units 12:23 12:30 12:35 WBC 8.8 (4.0-11.0) 10^3/uL RBC 2.67 L (4.70-6.10) 10^6/uL Hgb 6.9 L* (14.0-18.0) g/dL Hct 24.0 L (42.0-54.0) % MCV 89.9 (80.0-94.0) fL MCH 25.8 L (25.9-34.0) pg MCHC 28.8 L (29.9-35.2) g/dL RDW 21.1 H (11.0-15.0) % Plt Count 302 (150-450) 10^3/uL MPV 10.8 (9.5-13.5) fL Seg Neuts % (Manual) 88.0 H (43.0-75.0) Lymphocytes % (Manual) 2.0 L (20.5-60.0) % Monocytes % (Manual) 9.0 (1.7-12.0) % Eosinophils % (Manual) 1.0 (0.9-7.0) % Basophils % (Manual) 0.0 L (0.2-2.0) % Neutrophils # (Manual) 7.74 H (1.4-6.5) 10^3/uL Lymphocytes # (Manual) 0.17 L (1.20-3.80) 10^3/uL Monocytes # (Manual) 0.79 (0.30-0.80) 10^3/uL Eosinophils # (Manual) 0.08 (0.00-0.70) 10^3/uL Basophils # (Manual) 0.00 (0.00-0.10) 10^3/uL Hypochromasia 1+ Anisocytosis 1+ Sodium (136-145) mmol/L Potassium (3.5-5.1) mmol/L Chloride (98-107) mmol/L Carbon Dioxide (21.0-32.0) mmol/L Anion Gap BUN (7.0-18.0) mg/dL Creatinine (0.70-1.30) mg/dL Est GFR ( Amer) (>=60 mL/min/1.73m^2) Est GFR (Non-Af Amer) (>=60 mL/min/1.73m^2) BUN/Creatinine Ratio Glucose (74-106) mg/dL Lactate (0.4-2.0) mmol/L Calcium (8.5-10.1) mg/dL Iron 14.0 L (65.0-175.0) ug/dL TIBC 260.0 (250.0-450.0) ug/dL % Saturation 5.4 % Total Bilirubin (0.2-1.0) mg/dL AST (15-37) U/L ALT (16-63) U/L Alkaline Phosphatase (46-116) U/L Troponin I High Sens (4.0-76.1) pg/mL NT-Pro-B Natriuret Pep (<=900.0) pg/mL Total Protein (6.4-8.2) g/dL Albumin (3.4-5.0) g/dL Globulin g/dL Albumin/Globulin Ratio Influenza Type A Ag Negative Influenza Type B Ag Negative SARS-CoV-2 Ag (CV2AG) Negative (NEGATIVE) Blood Type O Positive Antibody Screen Negative Crossmatch See Detail 04/02/25 Range/Units 13:32 WBC (4.0-11.0) 10^3/uL RBC (4.70-6.10) 10^6/uL Hgb (14.0-18.0) g/dL Hct (42.0-54.0) % MCV (80.0-94.0) fL MCH (25.9-34.0) pg MCHC (29.9-35.2) g/dL RDW (11.0-15.0) % Plt Count (150-450) 10^3/uL MPV (9.5-13.5) fL Seg Neuts % (Manual) (43.0-75.0) Lymphocytes % (Manual) (20.5-60.0) % Monocytes % (Manual) (1.7-12.0) % Eosinophils % (Manual) (0.9-7.0) % Basophils % (Manual) (0.2-2.0) % Neutrophils # (Manual) (1.4-6.5) 10^3/uL Lymphocytes # (Manual) (1.20-3.80) 10^3/uL Monocytes # (Manual) (0.30-0.80) 10^3/uL Eosinophils # (Manual) (0.00-0.70) 10^3/uL Basophils # (Manual) (0.00-0.10) 10^3/uL Hypochromasia Anisocytosis Sodium 144 (136-145) mmol/L Potassium 3.5 (3.5-5.1) mmol/L Chloride 103 (98-107) mmol/L Carbon Dioxide 29.1 (21.0-32.0) mmol/L Anion Gap 15.4 BUN 26.0 H (7.0-18.0) mg/dL Creatinine 0.89 (0.70-1.30) mg/dL Est GFR ( Amer) >60 (>=60 mL/min/1.73m^2) Est GFR (Non-Af Amer) >60 (>=60 mL/min/1.73m^2) BUN/Creatinine Ratio 29.2 Glucose 100 (74-106) mg/dL Lactate 1.9 (0.4-2.0) mmol/L Calcium 9.1 (8.5-10.1) mg/dL Iron (65.0-175.0) ug/dL TIBC (250.0-450.0) ug/dL % Saturation % Total Bilirubin 0.4 (0.2-1.0) mg/dL AST 23 (15-37) U/L ALT 21 (16-63) U/L Alkaline Phosphatase 112 (46-116) U/L Troponin I High Sens 8.5 (4.0-76.1) pg/mL NT-Pro-B Natriuret Pep 422.0 (<=900.0) pg/mL Total Protein 7.6 (6.4-8.2) g/dL Albumin 2.5 L (3.4-5.0) g/dL Globulin 5.1 g/dL Albumin/Globulin Ratio 0.5 Influenza Type A Ag Influenza Type B Ag SARS-CoV-2 Ag (CV2AG) (NEGATIVE) Blood Type Antibody Screen Crossmatch Imaging Data CT scan - chest: Attestation: I have reviewed the pertinent imaging results. Radiologist's impression: ITS Impressions Chest CTA 04/02/25 13:21 IMPRESSION: NO CT EVIDENCE OF PULMONARY EMBOLISM. CONTINUED ESOPHAGEAL WALL THICKENING WELL MEDIASTINAL AND RIGHT HILAR ADENOPATHY. SLIGHT IMPROVEMENT OF RIGHT LOWER LOBE PARENCHYMAL CHANGES SEEN PREVIOUSLY THOUGH DEVELOPMENT OF ADDITIONAL MULTIFOCAL AIRSPACE OPACITIES AND RIGHT LOWER LOBE LUNG NODULE. TRACE AMOUNT OF RIGHT PLEURAL FLUID. Impression dictated by: Josseline Shahid M.D. 04/02/2025 2:50 PM Dictation Location: [place] [id number] Electronically authenticated by: [id number] Y Date: 04/02/2025 14:50 ECG Data Attestation: ?I have reviewed the pertinent ECG results. Discharge Plan Discharge Chief Complaint: Shortness of Breath/Dyspnea Clinical Impression: Anemia, HAP (hospital-acquired pneumonia) Patient Disposition: Admitted As Inpatient Time of Disposition Decision: 17:29 Condition: Fair Discharge Date/Time: 04/02/25 17:03
[2025-04-02 14:00] LABS: SARS-CoV-2 Ag NEGATIVE (NEGATIVE)
[2025-04-02 14:01] LABS: Alanine Aminotransferase 21 U/L (16-63); Albumin Globulin Ratio 0.5; Albumin Level 2.5 g/dL (3.4-5.0); Alkaline Phosphatase 112 U/L (46-116); Anion Gap 15.4; Aspartate Amino Transferase 23 U/L (15-37); Blood Urea Nitrogen 26.0 mg/dL (7.0-18.0); Calcium 9.1 mg/dL (8.5-10.1); Carbon Dioxide 29.1 mmol/L (21.0-32.0); Chloride 103 mmol/L (98-107); Estimated GFR (African America >60 (>=60 mL/min/1.73m^2); Estimated GFR (Non-African Ame >60 (>=60 mL/min/1.73m^2); Globulin 5.1 g/dL; Glucose 100 mg/dL (74-106); Lactate/Lactic Acid 1.9 mmol/L (0.4-2.0); NT Pro B Type Natriuretic Pept 422.0 pg/mL (<=900.0); Potassium 3.5 mmol/L (3.5-5.1); Sodium 144 mmol/L (136-145); Total Protein 7.6 g/dL (6.4-8.2)
[2025-04-02 14:04] LABS: Basophils Abs Manual 0.00 10^3/uL (0.00-0.10); Basophils Percent Manual 0.0 % (0.2-2.0); Eosinophils Absolute Manual 0.08 10^3/uL (0.00-0.70); Eosinophils Percent Manual 1.0 % (0.9-7.0); Lymphocytes Absolute Manual 0.17 10^3/uL (1.20-3.80); Lymphocytes Percent Manual 2.0 % (20.5-60.0); Monocytes Absolute Manual 0.79 10^3/uL (0.30-0.80); Monocytes Percent Manual 9.0 % (1.7-12.0); Segmented Neut Absolute Manual 7.74 10^3/uL (1.4-6.5); Segmented Neutrophils % Manual 88.0 (43.0-75.0)
[2025-04-02 14:06] LABS: Anisocytosis 1+; Hypochromasia 1+
[2025-04-02] MEDS: ALBUTEROL SULFATE 2.5 MG/3 ML VIAL NEB IH (16:10)
[2025-04-02] MEDS: ACETAMINOPHEN 500 MG TABLET 1000 MG PO (16:25)
--- NOTE | 2025-04-02 16:43 | PM.IMHP1 ---
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 Patient was referred to radiation oncology, he is done with his radiation therapy around 1 month ago, completed cisplatin etoposide chemo on 02/09/2025, the plan was to get PET scan 4 weeks post radiation to start him on durvalumab (immunotherapy) for maintenance, pacemaker placement due to complete heart block back in , Gout, depression/anxiety, recurrent hospitalization with postobstructive pneumonia. He presents today with 6-day history of shortness of breath. Is obtained from the patient, ED staff, as well as patient chart and I was able to read patient's [facility] oncology notes from [facility]. Pt states that around 6 days ago he started having shortness of breath when he tries to exert himself or walk, associated with productive cough of brownish sputum. He denies any fever or chills or nausea or vomiting or palpitation or chest pain or dizziness or syncope. He states that he follows with his oncologist and he was prescribed ofloxacin which he continued 5 days off and last dose was on Wednesday however yesterday, Wednesday, in the evening he started complaining of worsening his symptoms and he decided today to come to the ED for further workup and management. He follows with Dr. Kvng Perez at [facility], last seen on 03/28-, he was complaining of cough and mild fever and he was sent on levofloxacin which he completed 5 days of which last dose was yesterday. Workup in the ED included CBC showing hemoglobin of 6.9 with normal MCV, platelets were 302K as well as leukocyte of where 8.8 K. With left shift and bandemia of 88%. Chemistry was unremarkable. CTA chest showed no evidence of PE, it did show continued esophageal wall thickening as well as mediastinal and right hilar adenopathy along with additional multifocal airspace opacity in the right lower lobe lung nodule. ED staff reach out to the patient's oncologist recommended this admission for IV antibiotic and preferred and getting hospital-acquired organisms covered as well. Patient to be admitted under hospitalist service for further workup and management Review of Systems ROS Status of ROS 10 or more systems reviewed and unremarkable except as noted in history and below [facility] Medical History (Updated 04/02/25 @ 17:29 by SHAMA Hampton) Severe protein-calorie malnutrition ?E43 - Unspecified severe protein-calorie malnutrition (ICD-10) Hypomagnesemia ?E83.42 - Hypomagnesemia (ICD-10) Iron deficiency anemia ?D50.9 - Iron deficiency anemia, unspecified (ICD-10) Orthostatic hypotension ?I95.1 - Orthostatic hypotension (ICD-10) Right bundle branch block ?I45.10 - Unspecified right bundle-branch block (ICD-10) Intraventricular conduction delay ?I45.9 - Conduction disorder, unspecified (ICD-10) Squamous cell lung cancer ?C34.90 - Malignant neoplasm of unspecified part of unspecified bronchus or lung (ICD-10) Immune deficiency disorder ?D84.9 - Immunodeficiency, unspecified (ICD-10) Vertigo ?R42 - Dizziness and giddiness (ICD-10) Recurrent syncope ?R55 - Syncope and collapse (ICD-10) Acute kidney injury ?N17.9 - Acute kidney failure, unspecified (ICD-10) Leukocytosis ?D72.829 - Elevated white blood cell count, unspecified (ICD-10) Respiratory distress ?R06.03 - Acute respiratory distress (ICD-10) Lactic acidosis ?E87.20 - Acidosis, unspecified (ICD-10) Lung cancer, lower lobe ?C34.30 - Malignant neoplasm of lower lobe, unspecified bronchus or lung (ICD-10) RLL pneumonia ?J18.9 - Pneumonia, unspecified organism (ICD-10) Carpal tunnel syndrome ?G56.00 - Carpal tunnel syndrome, unspecified upper limb (ICD-10) Back pain ?M54.9 - Dorsalgia, unspecified (ICD-10) Arthritis ?M19.90 - Unspecified osteoarthritis, unspecified site (ICD-10) Snores ?R06.83 - Snoring (ICD-10) Sleep apnea ?G47.30 - Sleep apnea, unspecified (ICD-10) Influenza ?J11.1 - Influenza due to unidentified influenza virus with other respiratory manifestations (ICD-10) Right lower lobe lung mass ?R91.8 - Other nonspecific abnormal finding of lung field (ICD-10) Skin cancer ?C44.90 - Unspecified malignant neoplasm of skin, unspecified (ICD-10) Hypoxia ?R09.02 - Hypoxemia (ICD-10) 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 - Shortness of breath (ICD-10) ?U09.9 - Post covid-19 condition, unspecified (ICD-10) HTN (hypertension) ?I10 - Essential (primary) hypertension (ICD-10) KERR (dyspnea on exertion) ?R06.09 - Other forms of dyspnea (ICD-10) Pneumonia ?J18.9 - Pneumonia, unspecified organism (ICD-10) COVID-19 ?U07.1 - COVID-19 (ICD-10) History of COVID-19 ?Z86.16 - Personal history of COVID-19 (ICD-10) Surgical History H/O transurethral resection of prostate ?Z98.890 - Other specified postprocedural states (ICD-10) ?Z90.79 - Acquired absence of other genital organ(s) (ICD-10) History of colonoscopy ?Z98.890 - Other specified postprocedural states (ICD-10) History of myringotomy ?Z98.890 - Other specified postprocedural states (ICD-10) History of carpal tunnel release ?Z98.890 - Other specified postprocedural states (ICD-10) History of carpal tunnel surgery ?Z98.890 - Other specified postprocedural states (ICD-10) History of tonsillectomy ?Z90.89 - Acquired absence of other organs (ICD-10) Family History (Updated 10/06/24 @ 23:50 by Svetlana Kimball RN) Father Family history of myocardial infarction Son Family history of stroke Other Family history of CHF (congestive heart failure) Social History (Updated 11/04/24 @ 02:55 by Mary Ellen Mary) Within the past year, how often did you have a drink containing alcohol: never Score interpretation: A score less than 4 is consistent with normal alcohol consumption. Smoking status: Former smoker Non-prescribed substance use: denies use Previous occupational history: retired Highest level of school completed/degree received: Associate degree: academic program Are you now , , , , never or living with a partner: In a typical week, how many times do you talk on the telephone with family, friends, or neighbors: once per week How often do you get together with friends or relatives: once per week Little interest or pleasure in doing things: not at all Feeling down, depressed, or hopeless: not at all Do you think of yourself as: straight/heterosexual Gender Identity: male Meds Home Medications and Allergies Home Medications ?Medication ?Instructions ?Recorded ?Confirmed ?Type allopurinol 300 mg tablet 300 mg PO BID 02/18/25 04/02/25 History benzonatate 100 mg capsule 200 mg PO Q8H PRN cough 02/18/25 04/02/25 History colchicine 0.6 mg tablet 0.6 mg PO DAILY 02/18/25 04/02/25 History cyclobenzaprine 10 mg tablet 10 mg PO BEDTIME PRN muscle spasm 02/18/25 04/02/25 History ipratropium bromide 21 mcg (0.03 2 spray intranasal BID 02/18/25 04/02/25 History %) nasal spray metoprolol succinate 50 mg 50 mg PO DAILY 02/18/25 04/02/25 History tablet,extended release 24 hr midodrine 2.5 mg tablet 2.5 mg PO TIDWM 02/18/25 04/02/25 History mirtazapine 7.5 mg tablet 7.5 mg PO BEDTIME 02/18/25 04/02/25 History oxycodone 5 mg tablet 5 mg PO Q4H PRN pain 02/18/25 04/02/25 History pantoprazole 40 mg tablet,delayed 40 mg PO DAILY 4 weeks #28 tabs 02/18/25 04/02/25 Rx release (Protonix) sennosides 8.6 mg-docusate sodium 1 tab PO BID 02/18/25 04/02/25 History 50 mg tablet (Senna Plus) sertraline 50 mg tablet 50 mg PO DAILY 02/18/25 04/02/25 History esomeprazole magnesium 40 mg 40 mg PO DAILY 04/02/25 04/02/25 History capsule,delayed release fentanyl 25 mcg/hr transdermal 1 patch transdermal Q72H 04/02/25 04/02/25 History patch sucralfate 1 gram tablet 1 g PO ACHS 04/02/25 04/02/25 History Allergies Allergy/AdvReac Type Severity Reaction Status Date / Time codeine Allergy Severe Flushing Verified 04/02/25 12:02 cremophor el (polyethoxlated Allergy Anaphylaxis Verified 04/02/25 12:02 castor paclitaxel (From Taxol) Allergy Anaphylaxis Verified 04/02/25 12:02 polysorbate 80 Allergy Anaphylaxis Verified 04/02/25 12:02 sulfamethoxazole (From AdvReac Severe difficulty Verified 04/02/25 12:02 Bactrim) urinating trimethoprim (From Bactrim) AdvReac Severe Unknown Verified 04/02/25 12:02 Exam Narrative Exam Narrative: General: Frail 64-year-old male chronically ill but not in acute distress lying comfortably in bed saturating 97% on 2 L nasal cannula Skin: Warm but pale, no rash no ecchymosis no purpura. Head: Normocephalic, atraumatic. Neck: Supple, non-tender. No JVD, no lymphadenopathy, no thyromegaly Eye: Pupils are equal, round and EOMI. No scleral icterus. Ears, Nose, Mouth, and Throat: No nasal mucosal hypertrophy. Oral mucosa is moist, no posterior oropharynx erythema, uvula is mid-line Cardiovascular: Tachycardic with rhythm without murmur, gallop or rub. Respiratory: No accessory muscle use, no use accessory muscles no tachypnea and no use of abdominal muscles. Bilateral expiratory wheezing with decreased air entry on the right lower lung as well as some crackles in this area specifically. Patient is not in respiratory distress when I saw him Musculoskeletal: Full ROM of all extremities, no calf or popliteal tenderness, no leg swelling, intact peripheral pulses bilateral GI: Abdomen is soft, non-distended, non tender to palpation. No masses appreciated. No rebound, guarding, or rigidity noted. Neurological: A&O x4. No cranial nerve dysfunction observed. No truncal ataxia. Moves all extremities. Sensation intact. Constitutional Vital Signs, click to edit/add: Last Vital Signs Temp 99.3 F 04/02/25 11:56 Pulse 113 H 04/02/25 16:30 Resp 27 H 04/02/25 16:30 BP 100/55 04/02/25 16:00 Pulse Ox 96 04/02/25 16:30 O2 Del Method Nasal Cannula 04/02/25 13:45 O2 Flow Rate 2 04/02/25 13:45 Internal Medicine - H&P: Reslt Labs Labs: Short CBC 04/02/25 Range/Units 12:35 WBC 8.8 (4.0-11.0) 10^3/uL Hgb 6.9 L* (14.0-18.0) g/dL Hct 24.0 L (42.0-54.0) % Plt Count 302 (150-450) 10^3/uL BMP 04/02/25 13:32 Sodium 144 Potassium 3.5 Chloride 103 Carbon Dioxide 29.1 BUN 26.0 H Creatinine 0.89 Glucose 100 Calcium 9.1 Liver Function 04/02/25 Range/Units 13:32 Total Bilirubin 0.4 (0.2-1.0) mg/dL AST 23 (15-37) U/L ALT 21 (16-63) U/L Alkaline Phosphatase 112 (46-116) U/L Albumin 2.5 L (3.4-5.0) g/dL Assessment and Plan Assessment and Plan (1) Acute hypoxic respiratory failure: (2) HCAP (healthcare-associated pneumonia): (3) Lung cancer: Plan Acute hypoxic respiratory failure in the setting of sepsis secondary to postobstructive pneumonia with immunocompromise state Failure of p.o. 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 Frailty Acute on chronic anemia, likely in the setting of chronic illness and chemotherapy, GI bleed is less likely - Admit patient to stepdown unit - Continue patient on 2 L nasal cannula for now as he seems to be comfortable with the - Start IV vancomycin and IV Zosyn, to be dosed by pharmacy - Obtain sputum culture and MRSA swab - Stop vancomycin if MRSA is negative on the swab - DuoNeb 4 times daily - Adjust antibiotics according to sputum and blood cultures -Obtain occult blood -Monitor hemoglobin closely while the patient is here, if the patient shows any evidence of overt GI bleeding I will transfer him to a facility with a GI/EGD capability -Obtain ferritin, iron profile, TIBC, B12, and folic acid to delineate the patient's anemia etiology - PT/OT eval - I will try to communicate with his oncologist allenorrow - Full code, discussed the goals of care and the plan of management with the patient. I updated in the chart - Plan was discussed in detail with the patient and his .
[2025-04-02 17:12] LABS: Iron 14.0 ug/dL (65.0-175.0); Percent Iron Saturation 5.4 %; Total Iron Binding Capacity 260.0 ug/dL (250.0-450.0)
--- OUTSIDE RECORDS SUMMARY | 2025-04-02 17:12 | XMS_ITS | CCD ---
Author Organization [facility] Care Team Providers Care Physical Education Specialist Name Role Phone DR ALINA RALGAND Admitting Unavailable RICARDO, DR ALINA Patterson Primary [...] Consulting Unavailable ALINA RAGLAND Primary Care Physician [phone] Alina Ragland MD Primary Care Provider [phone] Tonja De Oliveira APRN Attending Provider Unavailable Primary Care Provider Unavailabl e Chip Carbajal DO Attending Provider Doug Bowles Primary Care Provider [phone] Dennis MCLEAN.Carlos POTTER Primary Care Provider Alina Ragland MD Primary Care Provider Dennis MCLEAN-Carlos POTTER Primary Care Provider Delvin MARCOS, Blanquita Chacon Unavailable [phone] Ana MEDINA, Rasheed Unavailable Carlos Collins APRN.CNP Primary Care Provider Dominic Ryder PA-C Emergency Provider Carlos Ledesma Primary Care Provider [phone] Panfilo MEDINA, Norah Admit Provider Panfilo MEDINA, Norah Attending Provider Shola KEARNEY, [...] Provider Jada Vinson MD Other Provider [facility] Other Provider Shane Altamirano DO Other Provider Shannan Ramirez APRN Other Provider Amarilys Jones DO Other Provider Neftali Motley DO Other Provider [phone] Ari Locke DO Other Provider Cristina Luis APRN Other Provider Justin Abbasi MD Attending Provider Justin Abbasi MD Other Provider Manfred MEDINA, [...] Jones Consulting Unavailable Neftali Motley Consulting Unavailable rAi Lokce Consulting Unavailable Cristina Luis Consulting Unavailable ElroyJustin [...] MARCOS, Ricardo Patterson Unavailable Unava ilaram Freeman 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.SENIOR WINDOWS ADMINISTRATOR, Sheila Cuevas Unavailable Ana MEDINA, Rasheed Unavailable Carlos Collins Attending Unavailable CATRACHO YOUSSEF Attending Unavailable DennisCarlos mascorro Attending Unavailable DennisCarlos mascorro Attending Unavailable DennisCarlos mascorro Attending Unavailable VICTORIA FLORES Attending Unavailable SAMSA, CHIP P Attending Unavailable SAMSA, CHIP P Referring Unavailable Dennis, Carlos L Admitting Unavailable Dennis, Carlos L Admitting Unavailable Dennis, Carlos L Admitting Unavailable VARUN, CATRACHO A Admitting Unavailable Dennis, aCrlos L Attending Unavailable Dennis, Carlos L Attending Unavailable VARUNCATRACHO Attending Unavailable Dennis, Carlos L Attending Unavailable DENNIS, CARLOS L Primary Care Unavailable IDANIA BARNEY Attending Unavailable IDANIA BARNEY U Admitting Unavailable BRIA, FARTUN Consulting Unavailable MITZY DOLL Referring Unavailable DENNIS, CARLOS L Referring Unavailable DENNIS, CARLOS L Primary Care Unavailable DENNIS, CARLOS L Referring Unavailable DENNIS, CARLOS L Primary Care Unavailable BJONRSHOLA Attending Unavailable DENNIS, CARLOS L Referring Unavailable DENNIS, CARLOS L Primary Care Unavailable DENNIS, CARLOS L Referring Unavailable DENNIS, CARLOS L Primary Care Unavailable DENNIS, CARLOS L Referring Unavailable DENNIS, CARLOS L Primary Care Unavailable BJORN, SHOLA Flores Attending Unavailable DENNIS, [...] DENNIS, CARLOS BERKLEY Primary Care Unavailable [facility] Primary Care Unavailable VENNEPUREDDY, RASHEED Referring Unavailable [...] Care Unavailable EZRA LIZAMA Referring Unavailable DENNIS, CRALOS PERRY Primary Care Unavailable [...] Unavailable DENNIS, CARLOS PERRY Primary Care Unavailable ZERA LIZAMA Referring Unavailable DENNIS, CARLOS PERRY Primary [...] Unavailable VENNEPUREDDY, RASHEED Referring Unavailable DENNIS, CARLOS PRERY Primary Care Unavailable EZRA LIZAMA Referring Unavailable DENNIS, CARLOS PERRY Primary Care Unavailable LOW, SEE-KVEIN Attending Unavailable LOW, [facility] Admitting Unavailable DENNIS, CARLOS PERRY Primary Care Unavailable EZRA LIZAMA Referring Unavailable DENNIS, CARLOS PERRY Primary Care Unavailable DENNIS, CARLOS PERRY Primary Care Unavailable DENNIS, CARLOS BERKLEY Primary Care Unavailable DENNIS, CARLOS BERKLEY Primary Care Unavailable VENNEPUREDDY, RASHEED Attending Unavailable DENNIS, CARLOS BERKLEY Primary Care Unavailable ALDA, EZRA Referring Unavailable DENNIS, CARLOS BERKLEY Primary Care Unavailable DENNIS, CARLOS BERKLEY Primary Care Unavailable ADLA, EZRA Attending Unavailable DENNIS, CARLOS BERKLEY Primary [...] Translations: [Bactrim] Drug Allergy 07-22-19 21 [facility] (20 sources) Sulfamethoxazole; Translations: [sulfamethoxazole] Drug Allergy 09-01-19 25 Other: See Comments, Unknown, Other (See Comments), GI Disturbance [facility] (20 sources) Sulfamethoxazole / Trimethoprim; Translations: [sulfamethoxazole-t rimethoprim] Drug Allergy 12-18-19 17 Other: See Comments [facility] (2 sources) Pollen 1 Allergy to substance Watery eye (finding), Eye swelling (finding) [facility] Comment on above: Pt only has allergy to [place] Tree Pollen (8 sources) [place] pollen Allergy to substance 08-11-19 Eyes swell shut;sneezing [facility] (8 sources) Trimethoprim Drug Allergy 09-01-19 Unable to urinate [facility] (20 sources) Codeine; Translations: [codeine] Drug Allergy 10-26-19 Other: See Comments, diaphoresis, Sweating (finding) [facility] (20 sources) PACLitaxel; Translations: [PACLITAXEL] Drug Allergy 01-09-20 Other: See Comments, Anaphylaxis [facility] (20 sources) Polysorbate 80; Translations: [POLYSORBATE 80] Drug Allergy 01-09-20 Anaphylaxis [facility] (20 sources) Cremophor El (Polyethoxlated [place] Oil); Translations: [CREMOPHOR EL (POLYETHOXLATED [place] OIL)] Drug Allergy 01-09-20 Anaphylaxis [facility] Work Phone: (9 sources) aprepitant; Translations: [APREPITANT] Drug Allergy 01-12-20 Anaphylaxis [facility] (9 sources) Etoposide; Translations: [ETOPOSIDE] Drug Allergy 01-12-20 Anaphylaxis [facility] (1 source) fosaprepitant Drug Allergy 01-18-20 [facility] (1 source) Pollen; Translations: [Pollen] Propensity to adverse reactions (disorder) [facility] (4 sources) Sulfamethoxazole / Trimethoprim; Translations: [...] extended release oral tablet (20 sources) Uncompetitive O-wqeyvx-D-asparta te Receptor Antagonist, Sigma-1 Agonist take 2 [...] Active docusate sodium 50 mg / sennosides, fdc 8.6 mg oral tablet (20 sources) Start: 01-15-2025 take 1 tablet by mouth twice daily as needed for constipation Start: 12-29-2024 take 1 tablet by [facility] twice daily Senexon-S oral tablet TAKE [...] sources) Anticholinergic Start: 01-23-2025 End: 03-16-2025 Ipratropium [place] (ATROVENT) 21 mcg (0.03 %) nasal spray [...] 40 mg tablet 02/19/2025 Active PEPSIN/BLESSING/OXBILE/PANCR EAT/BET (PXURJB-YAW-SU UPES-MPE-ZEJ-PAP ORAL) (2 sources) PEPSIN/BLESSING/OXBIL E/PANC REAT/BET (FZLGWD-RXS-DL JJXF-QEB-MEN-PAP ORAL) Take by mouth. Active predniSONE 20 [...] 1 dose, On Wed02/07/25 at 1300, EXP: 36565 02/09/25 Hazardous Chemotherapy Drug: Use appropriate PPE. [...] Fluticasone Propionate (Flonase Allergy Relief) 50 mcg/actuation [place],Suspension Discontinued 1 SPRAYS INTRANASAL Daily as needed [...] (Therapy completed) NON FORMULARY Me d Name: Genalyte Immunity support bid Active nystatin 036505 unt/ml oral suspension (20 sources) Polyene Antifungal [...] not tolerated Start: 12-29-2024 Potassium Chlo ride (Aph-Jlhv-Wkw M20) 20 mEq oral tablet, extended release [...] (1 source) Non-smoker 12-29-2024 Unclassified (2 sources) Aeronautical Engineering Officer follow up Unclassified (2 sources) Please keep [...] Reference Range Facility CNPNon 03-29-2025 CNPN Normal [facility] CBC W Auto Differential pane l (Bld)on 03-28-2025 Basophils (Bld) [#/Vol] 0.06 10*3/uL Normal <0.11 [facility] Comment on above: Order Comment: Speci men Type: BLOOD SPECIMENOrdering Facility: [facility] Address: [address] [place] [address] Performed By: #### 5 7021-8 ####[facility] LABCLIA [id number] [place] [address] Basophils/100 WBC (Bld) 0.5 % Normal [facility] Comment on above: Order Comment: Speci men Type: BLOOD SPECIMENOrdering Facility: [facility] Address: [address] [place] [address] Performed By: #### 5 7021-8 ####[facility] LABCLIA [id number] [place] [address] Differential cell count method Nom (Bld) Auto Normal [facility] Comment on above: Order Comment: Speci men Type: BLOOD SPECIMENOrdering Facility: [facility] Address: [address] [place] [address] Performed By: #### 5 7021-8 ####[facility] LABCLIA [id number] [place] [address] Eosinophils (Bld) [#/Vol] 0.33 10*3/uL Normal <0.46 [facility] Comment on above: Order Comment: Speci men Type: BLOOD SPECIMENOrdering Facility: [facility] Address: [address] [place] [address] Performed By: #### 5 7021-8 ####[facility] LABCLIA [id number] [place] [address] Eosinophils/100 WBC (Bld) 2.8 % Normal [facility] Comment on above: Order Comment: Speci men Type: BLOOD SPECIMENOrdering Facility: [facility] Address: [address] [place] [address] Performed By: #### 5 7021-8 ####[facility] LABCLIA [id number] [place] [address] Erythrocyte distribution width (RBC) [Ratio] 21.1 % High 11.5-15.0 [facility] Comment on above: Order Comment: Speci men Type: BLOOD SPECIMENOrdering Facility: [facility] Address: [address] [place] [address] Performed By: #### 5 7021-8 ####[facility] LABIA [id number] [place] [address] Hematocrit (Bld) [Volume fraction] 24.6 % Low 39.0-51.0 [facility] Comment on above: Order Comment: Speci men Type: BLOOD SPECIMENOrdering Facility: [facility] Address: [address] [place] [address] Performed By: #### 5 7021-8 ####[facility] LABIA [id number] [place] [address] Hemoglobin (Bld) [Mass/Vol] 7.2 g/dL Low 13.0-17.0 [facility] Comment on above: Order Comment: Speci men Type: BLOOD SPECIMENOrdering Facility: [facility] Address: [address] [place] [address] Performed By: #### 5 7021-8 ####[facility] LABIA [id number] [place] [address] Immature granulocytes (Bld) [#/Vol] 0.06 10*3/uL Normal <0.10 [facility] Comment on above: Order Comment: Speci men Type: BLOOD SPECIMENOrdering Facility: [facility] Address: [address] [place], [place] [address] Performed By: #### 5 7021-8 ####[facility] LABIA [id number] [place] [address] Immature granulocytes/100 WBC (Bld) 0.5 % Normal [facility] Comment on above: Order Comment: Speci men Type: BLOOD SPECIMENOrdering Facility: [facility] Address: [address] [place] [address] Performed By: #### 5 7021-8 ####[facility] LABCLIA [id number] [place] [address] Lymphocytes (Bld) [#/Vol] 0.64 10*3/uL Low 1.00-4.00 [facility] Comment on above: Order Comment: Speci men Type: BLOOD SPECIMENOrdering Facility: [facility] Address: [address] [place] [address] Performed By: #### 5 7021-8 ####[facility] LABCLIA [id number] [place] [address] Lymphocytes/100 WBC (Bld) 5.5 % Normal [facility] Comment on above: Order Comment: Speci men Type: BLOOD SPECIMENOrdering Facility: [facility] Address: [address] [place] [address] Performed By: #### 5 7021-8 ####[facility] LABCLIA [id number] [place] [address] MCH (RBC) [Entitic mass] 26.3 pg Normal 26.0-34.0 [facility] Comment on above: Order Comment: Speci men Type: BLOOD SPECIMENOrdering Facility: [facility] Address: [address] [place] [address] Performed By: #### 5 7021-8 ####[facility] LABCLIA [id number] [place] [address] MCHC (RBC) [Mass/Vol] 29.3 g/dL Low 30.5-36.0 [facility] Comment on above: Order Comment: Speci men Type: BLOOD SPECIMENOrdering Facility: [facility] Address: [address] [place] [address] Performed By: #### 5 7021-8 ####[facility] LABCLIA [id number] [place] [address] MCV (RBC) [Entitic vol] 89.8 fL Normal 80.0-100.0 [facility] Comment on above: Order Comment: Speci men Type: BLOOD SPECIMENOrdering Facility: [facility] Address: [address] [place] [address] Performed By: #### 5 7021-8 ####[facility] LABCLIA [id number] [place] [address] Monocytes (Bld) [#/Vol] 0.86 10*3/uL Normal <0.87 [facility] Comment on above: Order Comment: Speci men Type: BLOOD SPECIMENOrdering Facility: [facility] Address: [address] [place] [address] Performed By: #### 5 7021-8 ####[facility] LABCLIA [id number] [place] [address] Monocytes/100 WBC (Bld) 7.4 % Normal [facility] Comment on above: Order Comment: Speci men Type: BLOOD SPECIMENOrdering Facility: [facility] Address: [address] [place] [address] Performed By: #### 5 7021-8 ####[facility] LABCLIA [id number] [place] [address] Neutrophils (Bld) [#/Vol] 9.63 10*3/uL High 1.45-7.50 [facility] Comment on above: Order Comment: Speci men Type: BLOOD SPECIMENOrdering Facility: [facility] Address: [address] [place] [address] Performed By: #### 5 7021-8 ####[facility] LABCLIA [id number] [place] [address] Neutrophils/100 WBC (Bld) 83.3 % Normal [facility] Comment on above: Order Comment: Speci men Type: BLOOD SPECIMENOrdering Facility: [facility] Address: [address] [place] [address] Performed By: #### 5 7021-8 ####[facility] LABCLIA [id number] [place] [address] Nucleated RBC (Bld) [#/Vol] 10*3/uL Normal <0.01 [facility] Comment on above: Order Comment: Speci men Type: BLOOD SPECIMENOrdering Facility: [facility] Address: [address] [place] [address] Performed By: #### 5 7021-8 ####[facility] LABCLIA [id number] [place] [address] Nucleated RBC/100 WBC (Bld) [Ratio] 0.0 /100 WBC Normal [facility] Comment on above: Order Comment: Speci men Type: BLOOD SPECIMENOrdering Facility: [facility] Address: [address] [place] [address] Performed By: #### 5 7021-8 ####[facility] LABCLIA [id number] [place] [address] Platelet mean volume (Bld) [Entitic vol] 9.5 fL Normal 9.0-12.7 [facility] Comment on above: Order Comment: Speci men Type: BLOOD SPECIMENOrdering Facility: [facility] Address: [address] [place] [address] Performed By: #### 5 7021-8 ####[facility] LABCLIA [id number] [place] [address] Platelets (Bld) [#/Vol] 358 10*3/uL Normal 150-400 [facility] Comment on above: Order Comment: Speci men Type: BLOOD SPECIMENOrdering Facility: [facility] Address: [address] [place] [address] Performed By: #### 5 7021-8 ####[facility] LABCLIA [id number] [place] [address] RBC (Bld) [#/Vol] 2.74 10*6/uL Low 4.20-6.00 [facility] Comment on above: Order Comment: Speci men Type: BLOOD SPECIMENOrdering Facility: [facility] Address: [address] [place] [address] Performed By: #### 5 7021-8 ####[facility] LABCLIA [id number] [place] [address] WBC (Bld) [#/Vol] 11.58 10*3/uL High 3.70-11.00 [facility] Comment on above: Order Comment: Speci men Type: BLOOD SPECIMENOrdering Facility: [facility] Address: [address] [place] [address] Performed By: #### 5 7021-8 ####[facility] LABCLIA [id number] [place] [address] CNOVSPon 03-28-2025 CNOVSP Normal [facility] CNPNon 03-28-2025 CNPN Normal [facility] Comprehensive metabolic 2000 panelon 03-28-2025 Albumin [Mass/Vol] 3.7 g/dL Low 3.9-4.9 [facility] Comment on above: Order Comment: Speci men Type: BLOOD SPECIMENOrdering Facility: [facility] Address: [address] [place] [address] Performed By: #### 1 9123-9, 42875-0 ####[facility] LABCLIA [id number] [place] [address] ALP [Catalytic activity/Vol] 85 U/L Normal 38-113 [facility] Comment on above: Order Comment: Speci men Type: BLOOD SPECIMENOrdering Facility: [facility] Address: [address] [place] [address] Performed By: #### 1 9123-9, 72318-2 ####[facility] LABCLIA [id number] [place] [address] ALT [Catalytic activity/Vol] 6 U/L Low 10-54 [facility] Comment on above: Order Comment: Speci men Type: BLOOD SPECIMENOrdering Facility: [facility] Address: [address] [place] [address] Performed By: #### 1 9123-9, 50433-6 ####[facility] LABCLIA [id number] [place] [address] Anion gap [Moles/Vol] 14 mmol/L Normal 8-15 [facility] Comment on above: Order Comment: Speci men Type: BLOOD SPECIMENOrdering Facility: [facility] Address: [address] [place] [address] Performed By: #### 1 9123-9, 44966-7 ####[facility] LABCLIA [id number] [place] [address] AST [Catalytic activity/Vol] 16 U/L Normal 14-40 [facility] Comment on above: Order Comment: Speci men Type: BLOOD SPECIMENOrdering Facility: [facility] Address: [address] [place] [address] Performed By: #### 1 9123-9, 56650-2 ####[facility] LABCLIA [id number] [place] [address] Bilirubin [Mass/Vol] 0.3 mg/dL Normal 0.2-1.3 [facility] Comment on above: Order Comment: Speci men Type: BLOOD SPECIMENOrdering Facility: [facility] Address: [address] [place] [address] Performed By: #### 1 23-9, 46387-8 ####[facility] LABCLIA [id number] [place] [address] Calcium [Mass/Vol] 9.7 mg/dL Normal 8.5-10.2 [facility] Comment on above: Order Comment: Speci men Type: BLOOD SPECIMENOrdering Facility: [facility] Address: [address] [place] [address] Performed By: #### 1 239, 90571-3 ####[facility] LABCLIA [id number] [place] [address] Chloride [Moles/Vol] 103 mmol/L Normal 98-107 [facility] Comment on above: Order Comment: Speci men Type: BLOOD SPECIMENOrdering Facility: [facility] Address: [address] [place] [address] Performed By: #### 1 9123-9, 54640-9 ####[facility] LABCLIA [id number] [place] [address] CO2 [Moles/Vol] 23 mmol/L Normal 22-30 [facility] Comment on above: Order Comment: Speci men Type: BLOOD SPECIMENOrdering Facility: [facility] Address: [address] [place] [address] Performed By: #### 1 9123-9, 55116-0 ####[facility] LABCLIA [id number] [place] [address] Creatinine [Mass/Vol] 0.67 mg/dL Low 0.73-1.22 [facility] Comment on above: Order Comment: Speci men Type: BLOOD SPECIMENOrdering Facility: [facility] Address: [address] [place] [address] Performed By: #### 1 9123-9, 74080-8 ####[facility] LABIA [id number] [place] [address] eGFRcr SerPlBld CKD-EPI 2020 105 mL/min/1.73m??? Normal >=60 [facility] Comment on above: Order Comment: Speci men Type: BLOOD SPECIMENOrdering Facility: [facility] Address: [address] [place] [address] Result Comment: Carly mated Glomerular Filtration Rate [...] actual GFR. Performed By: #### 1 9123-9, 70901-2 ####[facility] LABCLIA [id number] [place] [address] Glucose [Mass/Vol] 119 mg/dL High 74-99 [facility] Comment on above: Order Comment: Speci men Type: BLOOD SPECIMENOrdering Facility: [facility] Address: [address] [place] [address] Result Comment: The [place] Diabetes Association (ADA) provides guidance for cutoff [...] Standards of Medical Care in Diabetes 2016, [place] Diabetes Association. Diabetes Care. 2016.39(Suppl 1). Performed By: #### 1 9123-9, 83383-4 ####[facility] LABCLIA [id number] [place] [address] Potassium [Moles/Vol] 3.7 mmol/L Normal 3.7-5.1 [facility] Comment on above: Order Comment: Speci men Type: BLOOD SPECIMENOrdering Facility: [facility] Address: [address] [place] [address] Performed By: #### 1 9123-9, 40762-5 ####[facility] LABIA [id number] [place] [address] Protein [Mass/Vol] 7.2 g/dL Normal 6.3-8.0 [facility] Comment on above: Order Comment: Speci men Type: BLOOD SPECIMENOrdering Facility: [facility] Address: [address] [place] [address] Performed By: #### 1 9123-9, 38075-2 ####[facility] LABCLIA [id number] [place] [address] Sodium [Moles/Vol] 140 mmol/L Normal 136-144 [facility] Comment on above: Order Comment: Speci men Type: BLOOD SPECIMENOrdering Facility: [facility] Address: [address] [place], [place] [address] Performed By: #### 1 9123-9, 44618-7 ####[facility] LABCLIA [id number] [place] [address] Urea nitrogen [Mass/Vol] 18 mg/dL Normal 9-24 [facility] Comment on above: Order Comment: Speci men Type: BLOOD SPECIMENOrdering Facility: [facility] Address: [address] [place], [place] [address] Performed By: #### 1 9123-9, 88409-7 ####[facility] LABCLIA [id number] [place] [address] Magnesium SerPl-ncon 03-28 Magnesium [Mass/Vol] 1.9 mg/dL Normal 1.7-2.3 [facility] Comment on above: Order Comment: Speci men Type: BLOOD SPECIMENOrdering Facility: [facility] Address: [address] [place], [place] [address] Performed By: #### 1 9123-9, 44193-1 ####[facility] LABCLIA [id number] [place] [address] NM PET/CT SKULL-THIGH SUBQon 03-23-2025 NM PET/CT SKULL-THIGH SUBQ Normal [facility] CNCNPATEDon 03-20-2025 CNCNPATED Normal [facility] CNOVon 03-20-2025 CNOV Normal [facility] CNPNon 03-20-2025 CNPN Normal [facility] CNPNon 03-16-2025 CNPN Normal [facility] CNPNon 03-12-2025 CNPN Normal [facility] CNPNon 03-06-2025 CNPN Normal [facility] CNPNon 03-01-2025 CNPN Normal [facility] CNPNon 02-27-2025 CNPN Normal [facility] CNCNPATEDon 02-23-2025 CNCNPATED Normal [facility] CNNURSEon 02-22-2025 CNNURSE Normal [facility] CBC W Auto Differential pane l (Bld)on 02-21-2025 Anisocytosis Ql (Bld) Present Normal [facility] Comment on above: Order Comment: Speci men Type: BLOOD SPECIMENOrdering Facility: [facility] Address: [address] [place] [address] Performed By: #### 5 7021-8 ####[facility] LABCLIA [id number] [address] LABCLIA [id number] [place] [address] [place] Basophils (Bld) [#/Vol] 10*3/uL Normal <0.11 [facility] Comment on above: Order Comment: Speci men Type: BLOOD SPECIMENOrdering Facility: [facility] Address: [address] [place] [address] Performed By: #### 5 7021-8 ####[facility] LABCLIA [id number] [address] LABCLIA [id number] [place] [address] [place] Basophils/100 WBC (Bld) 0.0 % Normal [facility] Comment on above: Order Comment: Speci men Type: BLOOD SPECIMENOrdering Facility: [facility] Address: [address] [place] [address] Performed By: #### 5 7021-8 ####[facility] LABCLIA [id number] [address] LABCLIA [id number] [place] [address] [place] Dacrocytes LM Ql (Bld) Few Normal [facility] Comment on above: Order Comment: Speci men Type: BLOOD SPECIMENOrdering Facility: [facility] Address: [address] [place] [address] Performed By: #### 5 7021-8 ####[facility] LABCLIA [id number] [address] LABCLIA [id number] [place] [address] [place] Differential cell count method Nom (Bld) Auto Normal [facility] Comment on above: Order Comment: Speci men Type: BLOOD SPECIMENOrdering Facility: [facility] Address: [address] [place] [address] Performed By: #### 5 7021-8 ####[facility] LABCLIA [id number] [address] LABCLIA [id number] [place] [address] [place] Eosinophils (Bld) [#/Vol] 0.07 10*3/uL Normal <0.46 [facility] Comment on above: Order Comment: Speci men Type: BLOOD SPECIMENOrdering Facility: [facility] Address: [address] [place] [address] Performed By: #### 5 7021-8 ####[facility] LABCLIA [id number] [address] LABCLIA [id number] [place] [address] [place] Eosinophils/100 WBC (Bld) 8.9 % Normal [facility] Comment on above: Order Comment: Speci men Type: BLOOD SPECIMENOrdering Facility: [facility] Address: [address] [place] [address] Performed By: #### 5 7021-8 ####[facility] LABCLIA [id number] [place] [id number] LABCLIA [id number] [place] [id number] [place] Erythrocyte distribution width (RBC) [Ratio] 17.1 % High 11.5-15.0 [facility] Comment on above: Order Comment: Speci men Type: BLOOD SPECIMENOrdering Facility: [facility] Address: [address] [place] [address] Performed By: #### 5 7021-8 ####[facility] LABCLIA [id number] [address] LABCLIA [id number] [place] [address] [place] Hematocrit (Bld) [Volume fraction] 24.9 % Low 39.0-51.0 [facility] Comment on above: Order Comment: Speci men Type: BLOOD SPECIMENOrdering Facility: [facility] Address: [address] [place] [address] Performed By: #### 5 7021-8 ####[facility] LABCLIA [id number] [place] [id number] LABCLIA [id number] [place] [id number] [place] Hemoglobin (Bld) [Mass/Vol] 7.8 g/dL Low 13.0-17.0 [facility] Comment on above: Order Comment: Speci men Type: BLOOD SPECIMENOrdering Facility: [facility] Address: [address] [place] [address] Performed By: #### 5 7021-8 ####[facility] LABCLIA [id number] [address] LABCLIA [id number] [place] [id number] [place] Immature granulocytes (Bld) [#/Vol] 10*3/uL Normal <0.10 [facility] Comment on above: Order Comment: Speci men Type: BLOOD SPECIMENOrdering Facility: [facility] Address: [address] [place] [address] Performed By: #### 5 7021-8 ####[facility] LABCLIA [id number] [address] LABCLIA [id number] [place] [address] [place] Immature granulocytes/100 WBC (Bld) 0.0 % Normal [facility] Comment on above: Order Comment: Speci men Type: BLOOD SPECIMENOrdering Facility: [facility] Address: [address] [place] [address] Performed By: #### 5 7021-8 ####[facility] LABCLIA [id number] [address] LABCLIA [id number] [place] [address] [place] Lymphocytes (Bld) [#/Vol] 0.19 10*3/uL Low 1.00-4.00 [facility] Comment on above: Order Comment: Speci men Type: BLOOD SPECIMENOrdering Facility: [facility] Address: [address] [place] [address] Performed By: #### 5 7021-8 ####[facility] LABCLIA [id number] [address] LABCLIA [id number] [place] [address] [place] Lymphocytes/100 WBC (Bld) 24.1 % Normal [facility] Comment on above: Order Comment: Speci men Type: BLOOD SPECIMENOrdering Facility: [facility] Address: [address] [place] [address] Performed By: #### 5 7021-8 ####[facility] LABCLIA [id number] [place] [id number] LABCLIA [id number] [place] [address] [place] MCH (RBC) [Entitic mass] 26.2 pg Normal 26.0-34.0 [facility] Comment on above: Order Comment: Speci men Type: BLOOD SPECIMENOrdering Facility: [facility] Address: [address] [place] [address] Performed By: #### 5 7021-8 ####[facility] LABCLIA [id number] [address] LABCLIA [id number] [place] [address] [place] MCHC (RBC) [Mass/Vol] 31.3 g/dL Normal 30.5-36.0 [facility] Comment on above: Order Comment: Speci men Type: BLOOD SPECIMENOrdering Facility: [facility] Address: [address] [place] [address] Performed By: #### 5 7021-8 ####[facility] LABCLIA [id number] [address] LABCLIA [id number] [place] [address] [place] MCV (RBC) [Entitic vol] 83.6 fL Normal 80.0-100.0 [facility] Comment on above: Order Comment: Speci men Type: BLOOD SPECIMENOrdering Facility: [facility] Address: [address] [place] [address] Performed By: #### 5 7021-8 ####[facility] LABCLIA [id number] [address] LABCLIA [id number] [place] [address] [place] Monocytes (Bld) [#/Vol] 0.23 10*3/uL Normal <0.87 [facility] Comment on above: Order Comment: Speci men Type: BLOOD SPECIMENOrdering Facility: [facility] Address: [address] [place] [address] Performed By: #### 5 7021-8 ####[facility] LABCLIA [id number] [address] LABCLIA [id number] [place] [address] [place] Monocytes/100 WBC (Bld) 29.1 % Normal [facility] Comment on above: Order Comment: Speci men Type: BLOOD SPECIMENOrdering Facility: [facility] Address: [address] [place] [address] Performed By: #### 5 7021-8 ####[facility] LABCLIA [id number] [address] LABCLIA [id number] [place] [address] [place] Neutrophils (Bld) [#/Vol] 0.30 10*3/uL Low 1.45-7.50 [facility] Comment on above: Order Comment: Speci men Type: BLOOD SPECIMENOrdering Facility: [facility] Address: [address] [place] [address] Performed By: #### 5 7021-8 ####[facility] LABCLIA [id number] [address] LABCLIA [id number] [place] [address] [place] Neutrophils/100 WBC (Bld) 37.9 % Normal [facility] Comment on above: Order Comment: Speci men Type: BLOOD SPECIMENOrdering Facility: [facility] Address: [address] [place] [address] Performed By: #### 5 7021-8 ####[facility] LABCLIA [id number] [place] [id number] LABCLIA [id number] [place] [address] [place] Nucleated RBC (Bld) [#/Vol] 10*3/uL Normal <0.01 [facility] Comment on above: Order Comment: Speci men Type: BLOOD SPECIMENOrdering Facility: [facility] Address: [address] [place] [address] Performed By: #### 5 7021-8 ####[facility] LABCLIA [id number] [address] LABCLIA [id number] [place] [address] [place] Nucleated RBC/100 WBC (Bld) [Ratio] 0.0 /100 WBC Normal [facility] Comment on above: Order Comment: Speci men Type: BLOOD SPECIMENOrdering Facility: [facility] Address: [address] [place] [address] Performed By: #### 5 7021-8 ####[facility] LABCLIA [id number] [place] [id number] LABCLIA [id number] [place] [address] [place] Ovalocytes LM Ql (Bld) Few Normal [facility] Comment on above: Order Comment: Speci men Type: BLOOD SPECIMENOrdering Facility: [facility] Address: [address] [place] [address] Performed By: #### 5 7021-8 ####[facility] LABCLIA [id number] [place] [id number] LABCLIA [id number] [place] [address] [place] Platelet mean volume (Bld) [Entitic vol] 11.0 fL Normal 9.0-12.7 [facility] Comment on above: Order Comment: Speci men Type: BLOOD SPECIMENOrdering Facility: [facility] Address: [address] [place], [place] [address] Performed By: #### 5 7021-8 ####[facility] LABCLIA [id number] [place], [place] [address]OMWTONOKVMER[facility] LABCLIA [id number] [facility]ST[facility]ENTERK [address] [place] [address] [place] Platelets (Bld) [#/Vol] 143 10*3/uL Low 150-400 [facility] Comment on above: Order Comment: Speci men Type: BLOOD SPECIMENOrdering Facility: [facility] Address: [address] [place] [address] Performed By: #### 5 7021-8 ####[facility] LABCLIA [id number] [address] LABCLIA [id number] [facility] [address] [place] [address] [place] Platelets Estimate (Bld) [#/Vol] Decreased Normal [facility] Comment on above: Order Comment: Speci men Type: BLOOD SPECIMENOrdering Facility: [facility] Address: [address] [place] [address] Performed By: #### 5 7021-8 ####[facility] LABCLIA [id number] [place] [id number] LABCLIA [id number] [facility]ST[facility] CENTERK [address] [place] [address] [place] Polychromasia LM Ql (Bld) Slight Normal [facility] Comment on above: Order Comment: Speci men Type: BLOOD SPECIMENOrdering Facility: [facility] Address: [address] [place], [place] [address] Performed By: #### 5 7021-8 ####[facility] LABCLIA [id number] [place] [id number] LABCLIA [id number] [facility] [place] [id number] [address] [place] RBC (Bld) [#/Vol] 2.98 10*6/uL Low 4.20-6.00 [facility] Comment on above: Order Comment: Speci men Type: BLOOD SPECIMENOrdering Facility: [facility] Address: [address] [place] [address] Performed By: #### 5 7021-8 ####[facility] LABCLIA [id number] [address] LABCLIA [id number] [place] [address] [place] RBC FRAGMENTS Few Abnormal None Seen [facility] Comment on above: Order Comment: Speci men Type: BLOOD SPECIMENOrdering Facility: [facility] Address: [address] [place] [address] Performed By: #### 5 7021-8 ####[facility] LABCLIA [id number] [address] LABCLIA [id number] [place] [address] [place] RED CELL MORPH Reviewed: see result s of individual morphologies Normal [facility] Comment on above: Order Comment: Speci men Type: BLOOD SPECIMENOrdering Facility: [facility] Address: [address] [place] [address] Performed By: #### 5 7021-8 ####[facility] LABCLIA [id number] [address] LABCLIA [id number] [place] [id number] [place] Toxic granules LM Ql (Bld) Present Normal [facility] Comment on above: Order Comment: Speci men Type: BLOOD SPECIMENOrdering Facility: [facility] Address: [address] [place] [address] Performed By: #### 5 7021-8 ####[facility] LABCLIA [id number] [place], [place] [address]YDPHWPFTSMER[facility] LABCLIA [id number] [place] [address] [place] WBC (Bld) [#/Vol] 0.79 10*3/uL Low 3.70-11.00 [facility] Comment on above: Order Comment: Speci men Type: BLOOD SPECIMENOrdering Facility: [facility] Address: [address] [place] [address] Result Comment: No c lot detected. Performed By: #### 5 7021-8 ####[facility] LABCLIA [id number] [place], [place] [address]KORHWBLTPMER[facility] LABCLIA [id number] [place] [address] [place] CNNURSEon 02-21-2025 CNNURSE Normal [facility] CNOVon 02-21-2025 CNOV Normal [facility] CNOVSPon 02-21-2025 CNOVSP Normal [facility] Comprehensive metabolic 2000 panelon 02-21-2025 Albumin [Mass/Vol] 3.3 g/dL Low 3.9-4.9 [facility] Comment on above: Order Comment: Speci men Type: BLOOD SPECIMENOrdering Facility: [facility] Address: [address] [place] [address] Performed By: #### 2 4323-8, ####[facility] LABCLIA [id number] [place] [address] [place] ALP [Catalytic activity/Vol] 92 U/L Normal 38-113 [facility] Comment on above: Order Comment: Speci men Type: BLOOD SPECIMENOrdering Facility: [facility] Address: [address] [place] [address] Performed By: #### 2 4323-8, ####[facility] LABCLIA [id number] [place] [address] [place] ALT [Catalytic activity/Vol] 10 U/L Normal 10-54 [facility] Comment on above: Order Comment: Speci men Type: BLOOD SPECIMENOrdering Facility: [facility] Address: [address] [place], [place] [address] Performed By: #### 2 4323-8, ####[facility] LABCLIA [id number] [facility] [address] [address] [place] Anion gap [Moles/Vol] 11 mmol/L Normal 8-15 [facility] Comment on above: Order Comment: Speci men Type: BLOOD SPECIMENOrdering Facility: [facility] Address: [address] [place] [address] Performed By: #### 2 4323-8, ####[facility] LABCLIA [id number] [place] [id number] [place] AST [Catalytic activity/Vol] 14 U/L Normal 14-40 [facility] Comment on above: Order Comment: Speci men Type: BLOOD SPECIMENOrdering Facility: [facility] Address: [address] [place], [place] [address] Performed By: #### 2 4323-8, ####[facility] LABCLIA [id number] [address], [facility] [place] Bilirubin [Mass/Vol] 0.3 mg/dL Normal 0.2-1.3 [facility] Comment on above: Order Comment: Speci men Type: BLOOD SPECIMENOrdering Facility: [facility] Address: [address] [place], [place] [address] Performed By: #### 2 4323-8, ####[facility] LABCLIA [id number] [place] [id number] [place] Calcium [Mass/Vol] 8.7 mg/dL Normal 8.5-10.2 [facility] Comment on above: Order Comment: Speci men Type: BLOOD SPECIMENOrdering Facility: [facility] Address: [address] [place] [address] Performed By: #### 2 4323-8, ####[facility] LABCLIA [id number] [address] [address] [place] Chloride [Moles/Vol] 106 mmol/L Normal 98-107 [facility] Comment on above: Order Comment: Speci men Type: BLOOD SPECIMENOrdering Facility: [facility] Address: [address] [place] [address] Performed By: #### 2 4323-8, ####[facility] LABCLIA [id number] [place] [id number] [place] CO2 [Moles/Vol] 23 mmol/L Normal 22-30 [facility] Comment on above: Order Comment: Speci men Type: BLOOD SPECIMENOrdering Facility: [facility] Address: [address] [place] [address] Performed By: #### 2 4323-8, ####[facility] LABCLIA [id number] [place] [id number] [place] Creatinine [Mass/Vol] 0.73 mg/dL Normal 0.73-1.22 [facility] Comment on above: Order Comment: Speci men Type: BLOOD SPECIMENOrdering Facility: [facility] Address: [address] [place], [place] [address] Performed By: #### 2 4323-8, ####[facility] LABCLIA [id number] [address] [address] [place] eGFRcr SerPlBld CKD-EPI 2020 102 mL/min/1.73m??? Normal >=60 [facility] Comment on above: Order Comment: Speci men Type: BLOOD SPECIMENOrdering Facility: [facility] Address: [address] [place] [address] Result Comment: Carly mated Glomerular Filtration Rate [...] actual GFR. Performed By: #### 2 4323-8, ####[facility] LABCLIA [id number] [address] [address] [place] Glucose [Mass/Vol] 117 mg/dL High 74-99 [facility] Comment on above: Order Comment: Speci men Type: BLOOD SPECIMENOrdering Facility: [facility] Address: [address] [place] [address] Result Comment: The [place] Diabetes Association (ADA) provides guidance for cutoff [...] Standards of Medical Care in Diabetes 2016, [place] [employer] Association. Diabetes Care. 2016.39(Suppl 1). Performed By: #### 2 4323-8, ####[facility] LABCLIA [id number] [address] [address] [place] Potassium [Moles/Vol] 3.3 mmol/L Low 3.7-5.1 [facility] Comment on above: Order Comment: Speci men Type: BLOOD SPECIMENOrdering Facility: [facility] Address: [address] [place] [address] Performed By: #### 2 4323-8, ####[facility] LABCLIA [id number] [address] [address] [place] Protein [Mass/Vol] 6.8 g/dL Normal 6.3-8.0 [facility] Comment on above: Order Comment: Speci men Type: BLOOD SPECIMENOrdering Facility: [facility] Address: [address] [place], [place] [address] Performed By: #### 2 4323-8, ####[facility] LABCLIA [id number] [address] [place] [address] [place] Sodium [Moles/Vol] 140 mmol/L Normal 136-144 [facility] Comment on above: Order Comment: Speci men Type: BLOOD SPECIMENOrdering Facility: [facility] Address: [address] [place] [address] Performed By: #### 2 4323-8, ####[facility] LABCLIA [id number] [address], [facility] [place] Urea nitrogen [Mass/Vol] 12 mg/dL Normal 9-24 [facility] Comment on above: Order Comment: Speci men Type: BLOOD SPECIMENOrdering Facility: [facility] Address: [address] [place] [address] Performed By: #### 2 4323-8, ####[facility] LABCLIA [id number] [address] [place] [address] [place] Magnesium SerPl-mCncon 02-21 Magnesium [Mass/Vol] 1.9 mg/dL Normal 1.7-2.3 [facility] Comment on above: Order Comment: Speci men Type: BLOOD SPECIMENOrdering Facility: [facility] Address: [address] [place], [place] [address] Performed By: #### 2 4323-8, ####[facility] LABCLIA [id number] [address] [place] [address] [place] CNNURSEon 02-20-2025 CNNURSE Normal [facility] CNOVon 02-20-2025 CNOV Normal [facility] CNPNon 02-20-2025 CNPN Normal [facility] CNNURSEon 02-19-2025 CNNURSE Normal [facility] CNPNon 02-19-2025 CNPN Normal [facility] CNNURSEon 02-16-2025 CNNURSE Normal [facility] CNNURSEon 02-15-2025 CNNURSE Normal [facility] CNPNon 02-15-2025 CNPN Normal [facility] CBC W Auto Differential pane l (Bld)on 02-14-2025 Anisocytosis Ql (Bld) Present Normal [facility] Comment on above: Order Comment: Speci men Type: BLOOD SPECIMENOrdering Facility: [facility] Address: [address] [place] [address] Performed By: #### 5 7021-8 ####[facility] LABCLIA [id number] [address] LABCLIA [id number] [place] [address] [place] Basophils (Bld) [#/Vol] 0.00 10*3/uL Normal <0.11 [facility] Comment on above: Order Comment: Speci men Type: BLOOD SPECIMENOrdering Facility: [facility] Address: [address] [place] [address] Performed By: #### 5 7021-8 ####[facility] LABCLIA [id number] [address] LABCLIA [id number] [place] [address] [place] Basophils/100 WBC (Bld) 0.0 % Normal [facility] Comment on above: Order Comment: Speci men Type: BLOOD SPECIMENOrdering Facility: [facility] Address: [address] [place] [address] Performed By: #### 5 7021-8 ####[facility] LABCLIA [id number] [address] LABCLIA [id number] [place] [address] [place] Differential cell count method Nom (Bld) Manual Normal [facility] Comment on above: Order Comment: Speci men Type: BLOOD SPECIMENOrdering Facility: [facility] Address: [address] [place] [address] Performed By: #### 5 7021-8 ####[facility] LABCLIA [id number] [address] LABCLIA [id number] [place] [address] [place] Eosinophils (Bld) [#/Vol] 0.05 10*3/uL Normal <0.46 [facility] Comment on above: Order Comment: Speci men Type: BLOOD SPECIMENOrdering Facility: [facility] Address: [address] [place] [address] Performed By: #### 5 7021-8 ####[facility] LABCLIA [id number] [address] LABCLIA [id number] [place] [address] [place] Eosinophils/100 WBC (Bld) 0.9 % Normal [facility] Comment on above: Order Comment: Speci men Type: BLOOD SPECIMENOrdering Facility: [facility] Address: [address] [place] [address] Performed By: #### 5 7021-8 ####[facility] LABCLIA [id number] [address] LABCLIA [id number] [place] [address] [place] Erythrocyte distribution width (RBC) [Ratio] 16.4 % High 11.5-15.0 [facility] Comment on above: Order Comment: Speci men Type: BLOOD SPECIMENOrdering Facility: [facility] Address: [address] [place] [address] Performed By: #### 5 7021-8 ####[facility] LABCLIA [id number] [address] LABCLIA [id number] [place] [address] [place] Hematocrit (Bld) [Volume fraction] 22.5 % Low 39.0-51.0 [facility] Comment on above: Order Comment: Speci men Type: BLOOD SPECIMENOrdering Facility: [facility] Address: [address] [place] [address] Performed By: #### 5 7021-8 ####[facility] LABCLIA [id number] [address] LABCLIA [id number] [place] [address] [place] Hemoglobin (Bld) [Mass/Vol] 7.0 g/dL Low 13.0-17.0 [facility] Comment on above: Order Comment: Speci men Type: BLOOD SPECIMENOrdering Facility: [facility] Address: [address] [place] [address] Performed By: #### 5 7021-8 ####[facility] [facility] LABCLIA [id number] [address] LABCLIA [id number] [place] [address] [place] Lymphocytes (Bld) [#/Vol] 0.13 10*3/uL Low 1.00-4.00 [facility] Comment on above: Order Comment: Speci men Type: BLOOD SPECIMENOrdering Facility: [facility] Address: [address] [place] [address] Performed By: #### 5 7021-8 ####[facility] LABCLIA [id number] [address] LABCLIA [id number] [place] [id number] [place] Lymphocytes/100 WBC (Bld) 2.6 % Normal [facility] Comment on above: Order Comment: Speci men Type: BLOOD SPECIMENOrdering Facility: [facility] Address: [address] [place] [address] Performed By: #### 5 7021-8 ####[facility] LABCLIA [id number] [address] LABCLIA [id number] [place] [address] [place] MCH (RBC) [Entitic mass] 25.3 pg Low 26.0-34.0 [facility] Comment on above: Order Comment: Speci men Type: BLOOD SPECIMENOrdering Facility: [facility] Address: [address] [place] [address] Performed By: #### 5 7021-8 ####[facility] LABCLIA [id number] [address] LABCLIA [id number] [place] [address] [place] MCHC (RBC) [Mass/Vol] 31.1 g/dL Normal 30.5-36.0 [facility] Comment on above: Order Comment: Speci men Type: BLOOD SPECIMENOrdering Facility: [facility] Address: [address] [place] [address] Performed By: #### 5 7021-8 ####[facility] LABCLIA [id number] [address] LABCLIA [id number] [place] [address] [place] MCV (RBC) [Entitic vol] 81.2 fL Normal 80.0-100.0 [facility] Comment on above: Order Comment: Speci men Type: BLOOD SPECIMENOrdering Facility: [facility] Address: [address] [place] [address] Performed By: #### 5 7021-8 ####[facility] LABCLIA [id number] [place] [id number] LABCLIA [id number] [address] [address] [place] Monocytes (Bld) [#/Vol] 0.00 10*3/uL Normal <0.87 [facility] Comment on above: Order Comment: Speci men Type: BLOOD SPECIMENOrdering Facility: [facility] Address: [address] [place] [address] Performed By: #### 5 7021-8 ####[facility] LABCLIA [id number] [address] LABCLIA [id number] [place] [address] [place] Monocytes/100 WBC (Bld) 0.0 % Normal [facility] Comment on above: Order Comment: Speci men Type: BLOOD SPECIMENOrdering Facility: [facility] Address: [address] [place] [address] Performed By: #### 5 7021-8 ####[facility] LABCLIA [id number] [place] [id number] LABCLIA [id number] [place] [address] [place] Neutrophils (Bld) [#/Vol] 4.87 10*3/uL Normal 1.45-7.50 [facility] Comment on above: Order Comment: Speci men Type: BLOOD SPECIMENOrdering Facility: [facility] Address: [address] [place] [address] Performed By: #### 5 7021-8 ####[facility] LABCLIA [id number] [address] LABCLIA [id number] [address] [address] [place] Neutrophils/100 WBC (Bld) 96.5 % Normal [facility] Comment on above: Order Comment: Speci men Type: BLOOD SPECIMENOrdering Facility: [facility] Address: [address] [place] [address] Performed By: #### 5 7021-8 ####[facility] LABCLIA [id number] [address] LABCLIA [id number] [place] [address] [place] Nucleated RBC (Bld) [#/Vol] 10*3/uL Normal <0.01 [facility] Comment on above: Order Comment: Speci men Type: BLOOD SPECIMENOrdering Facility: [facility] Address: [address] [place] [address] Performed By: #### 5 7021-8 ####[facility] LABCLIA [id number] [address] LABCLIA [id number] [place] [address] [place] Nucleated RBC/100 WBC (Bld) [Ratio] 0.0 /100 WBC Normal [facility] Comment on above: Order Comment: Speci men Type: BLOOD SPECIMENOrdering Facility: [facility] Address: [address] [place] [address] Performed By: #### 5 7021-8 ####[facility] LABCLIA [id number] [address] LABCLIA [id number] [place] [address] [place] Ovalocytes LM Ql (Bld) Few Normal [facility] Comment on above: Order Comment: Speci men Type: BLOOD SPECIMENOrdering Facility: [facility] Address: [address] [place] [address] Performed By: #### 5 7021-8 ####[facility] LABCLIA [id number] [place] [id number] LABCLIA [id number] [place] [address] [place] Platelet mean volume (Bld) [Entitic vol] 10.3 fL Normal 9.0-12.7 [facility] Comment on above: Order Comment: Speci men Type: BLOOD SPECIMENOrdering Facility: [facility] Address: [address] [place] [address] Performed By: #### 5 7021-8 ####[facility] LABCLIA [id number] [address] LABCLIA [id number] [place] [address] [place] Platelets (Bld) [#/Vol] 76 10*3/uL Low 150-400 [facility] Comment on above: Order Comment: Speci men Type: BLOOD SPECIMENOrdering Facility: [facility] Address: [address] [place] [address] Result Comment: No c lot detected. Performed By: #### 5 7021-8 ####[facility] LABCLIA [id number] [address] LABCLIA [id number] [place] [address] [place] Platelets Estimate (Bld) [#/Vol] Decreased Normal [facility] Comment on above: Order Comment: Speci men Type: BLOOD SPECIMENOrdering Facility: [facility] Address: [address] [place], [place] [address] Performed By: #### 5 7021-8 ####[facility] LABCLIA [id number] [address] LABCLIA [id number] [place] [address] [place] Polychromasia LM Ql (Bld) Slight Normal [facility] Comment on above: Order Comment: Speci men Type: BLOOD SPECIMENOrdering Facility: [facility] Address: [address] [place] [address] Performed By: #### 5 7021-8 ####[facility] LABCLIA [id number] [address] LABCLIA [id number] [place] [address] [place] RBC (Bld) [#/Vol] 2.77 10*6/uL Low 4.20-6.00 [facility] Comment on above: Order Comment: Speci men Type: BLOOD SPECIMENOrdering Facility: [facility] Address: [address] [place] [address] Performed By: #### 5 7021-8 ####[facility] LABCLIA [id number] [address] LABCLIA [id number] [place] [address] [place] RED CELL MORPH Reviewed: see result s of individual morphologies Normal [facility] Comment on above: Order Comment: Speci men Type: BLOOD SPECIMENOrdering Facility: [facility] Address: [address] [place] [address] Performed By: #### 5 7021-8 ####[facility] LABCLIA [id number] [address] LABCLIA [id number] [place] [address] [place] WBC (Bld) [#/Vol] 5.05 10*3/uL Normal 3.70-11.00 [facility] Comment on above: Order Comment: Speci men Type: BLOOD SPECIMENOrdering Facility: [facility] Address: [address] [place] [address] Performed By: #### 5 7021-8 ####[facility] LABCLIA [id number] [place], [place] [address]UQSHJAORVM[facility] LABCLIA [id number] [facility] [address] [address] [place] CNNURSEon 02-14-2025 CNNURSE Normal [facility] CNOVon 02-14-2025 CNOV Normal [facility] CNOVSPon 02-14-2025 CNOVSP Normal [facility] CNPNon 02-14-2025 CNPN Normal [facility] Comprehensive metabolic 2000 panelon 02-14-2025 Albumin [Mass/Vol] 3.5 g/dL Low 3.9-4.9 [facility] Comment on above: Order Comment: Speci men Type: BLOOD SPECIMENOrdering Facility: [facility] Address: [address] [place] [address] Performed By: #### 2 4323-8 ####[facility] LABCLIA [id number] [place] [address] ALP [Catalytic activity/Vol] 103 U/L Normal 38-113 [facility] Comment on above: Order Comment: Speci men Type: BLOOD SPECIMENOrdering Facility: [facility] Address: [address] [place] [address] Performed By: #### 2 4323-8 ####[facility] LABCLIA [id number] [place] [address] ALT [Catalytic activity/Vol] 10 U/L Normal 10-54 [facility] Comment on above: Order Comment: Speci men Type: BLOOD SPECIMENOrdering Facility: [facility] Address: [address] [place] [address] Performed By: #### 2 4323-8 ####[facility] LABIA [id number] [place] [address] Anion gap [Moles/Vol] 12 mmol/L Normal 8-15 [facility] Comment on above: Order Comment: Speci men Type: BLOOD SPECIMENOrdering Facility: [facility] Address: [address] [place] [address] Performed By: #### 2 4323-8 ####[facility] LABCLIA [id number] [place] [address] AST [Catalytic activity/Vol] 18 U/L Normal 14-40 [facility] Comment on above: Order Comment: Speci men Type: BLOOD SPECIMENOrdering Facility: [facility] Address: [address] [place] [address] Performed By: #### 2 4323-8 ####[facility] LABCLIA [id number] [place] [address] Bilirubin [Mass/Vol] 0.3 mg/dL Normal 0.2-1.3 [facility] Comment on above: Order Comment: Speci men Type: BLOOD SPECIMENOrdering Facility: [facility] Address: [address] [place] [address] Performed By: #### 2 4323-8 ####[facility] LABCLIA [id number] [place] [address] Calcium [Mass/Vol] 9.0 mg/dL Normal 8.5-10.2 [facility] Comment on above: Order Comment: Speci men Type: BLOOD SPECIMENOrdering Facility: [facility] Address: [address] [place] [address] Performed By: #### 2 4323-8 ####[facility] LABCLIA [id number] [place] [address] Chloride [Moles/Vol] 105 mmol/L Normal 98-107 [facility] Comment on above: Order Comment: Speci men Type: BLOOD SPECIMENOrdering Facility: [facility] Address: [address] [place] [address] Performed By: #### 2 4323-8 ####[facility] LABCLIA [id number] [place] [address] CO2 [Moles/Vol] 19 mmol/L Low 22-30 [facility] Comment on above: Order Comment: Speci men Type: BLOOD SPECIMENOrdering Facility: [facility] Address: [address] [place] [address] Performed By: #### 2 4323-8 ####[facility] LABCLIA [id number] [place] [address] Creatinine [Mass/Vol] 0.80 mg/dL Normal 0.73-1.22 [facility] Comment on above: Order Comment: Speci men Type: BLOOD SPECIMENOrdering Facility: [facility] Address: [address] [place] [address] Performed By: #### 2 4323-8 ####[facility] LABCLIA [id number] [place] [address] eGFRcr SerPlBld CKD-EPI 2020 99 mL/min/1.73m??? Normal >=60 [facility] Comment on above: Order Comment: Speci men Type: BLOOD SPECIMENOrdering Facility: [facility] Address: [address] [place] [address] Result Comment: Carly mated Glomerular Filtration Rate [...] actual GFR. Performed By: #### 2 4323-8 ####[facility] LABCLIA [id number] [place] [address] Glucose [Mass/Vol] 116 mg/dL High 74-99 [facility] Comment on above: Order Comment: Speci men Type: BLOOD SPECIMENOrdering Facility: [facility] Address: [address] [place] [address] Result Comment: The [place] Diabetes Association (ADA) provides guidance for cutoff [...] Standards of Medical Care in Diabetes 2016, [place] Diabetes Association. Diabetes Care. 2016.39(Suppl 1). Performed By: #### 2 4323-8 ####[facility] LABCLIA [id number] [place] [address] Potassium [Moles/Vol] 4.1 mmol/L Normal 3.7-5.1 [facility] Comment on above: Order Comment: Speci men Type: BLOOD SPECIMENOrdering Facility: [facility] Address: [address] [place] [address] Performed By: #### 2 4323-8 ####[facility] LABCLIA [id number] [place] [address] Protein [Mass/Vol] 7.1 g/dL Normal 6.3-8.0 [facility] Comment on above: Order Comment: Speci men Type: BLOOD SPECIMENOrdering Facility: [facility] Address: [address] [place] [address] Performed By: #### 2 4323-8 ####[facility] LABCLIA [id number] [place] [address] Sodium [Moles/Vol] 136 mmol/L Normal 136-144 [facility] Comment on above: Order Comment: Speci men Type: BLOOD SPECIMENOrdering Facility: [facility] Address: [address] [place] [address] Performed By: #### 2 4323-8 ####[facility] LABCLIA [id number] [place] [address] Urea nitrogen [Mass/Vol] 21 mg/dL Normal 9-24 [facility] Comment on above: Order Comment: Speci men Type: BLOOD SPECIMENOrdering Facility: [facility] Address: [address] [place] [address] Performed By: #### 2 4323-8 ####[facility] LABCLIA [id number] [place] [address] CNNURSEon 02-13-2025 CNNURSE Normal [facility] CNPNon 02-13-2025 CNPN Normal [facility] CNNURSEon 02-09-2025 CNNURSE Normal [facility] POCT EKGon 02-09-2025 [facility] CNNURSEon 02-08-2025 CNNURSE Normal [facility] CNPNon 02-08-2025 CNPN Normal [facility] CNNURSEon 02-07-2025 CNNURSE Normal [facility] CNOVon 02-07-2025 CNOV Normal [facility] CNNURSEon 02-06-2025 CNNURSE Normal [facility] CNOVSPon 02-06-2025 CNOVSP Normal [facility] CNPNon 02-06-2025 CNPN Normal [facility] CBC W Auto Differential pane l (Bld)on 02-05-2025 Basophils (Bld) [#/Vol] 0.12 10*3/uL High <0.11 [facility] Comment on above: Order Comment: Speci men Type: BLOOD SPECIMENOrdering Facility: [facility] Address: [address] [place] [address] Performed By: #### 5 7021-8 ####[facility] LABCLIA [id number] [place] [address] Basophils/100 WBC (Bld) 0.6 % Normal [facility] Comment on above: Order Comment: Speci men Type: BLOOD SPECIMENOrdering Facility: [facility] Address: [address] [place] [address] Performed By: #### 5 7021-8 ####[facility] LABCLIA [id number] [place] [address] Differential cell count method Nom (Bld) Auto Normal [facility] Comment on above: Order Comment: Speci men Type: BLOOD SPECIMENOrdering Facility: [facility] Address: [address] [place] [address] Performed By: #### 5 7021-8 ####[facility] LABCLIA [id number] [place] [address] Eosinophils (Bld) [#/Vol] 10*3/uL Normal <0.46 [facility] Comment on above: Order Comment: Speci men Type: BLOOD SPECIMENOrdering Facility: [facility] Address: [address] [place] [address] Performed By: #### 5 7021-8 ####[facility] LABCLIA [id number] [place] [address] Eosinophils/100 WBC (Bld) 0.0 % Normal [facility] Comment on above: Order Comment: Speci men Type: BLOOD SPECIMENOrdering Facility: [facility] Address: [address] [place] [address] Performed By: #### 5 7021-8 ####[facility] LABCLIA [id number] [place] [address] Erythrocyte distribution width (RBC) [Ratio] 16.6 % High 11.5-15.0 [facility] Comment on above: Order Comment: Speci men Type: BLOOD SPECIMENOrdering Facility: [facility] Address: [address] [place] [address] Performed By: #### 5 7021-8 ####[facility] LABCLIA [id number] [place] [address] Hematocrit (Bld) [Volume fraction] 28.9 % Low 39.0-51.0 [facility] Comment on above: Order Comment: Speci men Type: BLOOD SPECIMENOrdering Facility: [facility] Address: [address] [place] [address] Performed By: #### 5 7021-8 ####[facility] LABCLIA [id number] [place] [address] Hemoglobin (Bld) [Mass/Vol] 9.1 g/dL Low 13.0-17.0 [facility] Comment on above: Order Comment: Speci men Type: BLOOD SPECIMENOrdering Facility: [facility] Address: [address] [place] [address] Performed By: #### 5 7021-8 ####[facility] LABCLIA [id number] [place] [address] Immature granulocytes (Bld) [#/Vol] 0.24 10*3/uL High <0.10 [facility] Comment on above: Order Comment: Speci men Type: BLOOD SPECIMENOrdering Facility: [facility] Address: [address] [place] [address] Performed By: #### 5 7021-8 ####[facility] LABCLIA [id number] [place] [address] Immature granulocytes/100 WBC (Bld) 1.2 % Normal [facility] Comment on above: Order Comment: Speci men Type: BLOOD SPECIMENOrdering Facility: [facility] Address: [address] [place] [address] Performed By: #### 5 7021-8 ####[facility] LABCLIA [id number] [place] [address] Lymphocytes (Bld) [#/Vol] 0.38 10*3/uL Low 1.00-4.00 [facility] Comment on above: Order Comment: Speci men Type: BLOOD SPECIMENOrdering Facility: [facility] Address: [address] [place] [address] Performed By: #### 5 7021-8 ####[facility] LABCLIA [id number] [place] [address] Lymphocytes/100 WBC (Bld) 1.9 % Normal [facility] Comment on above: Order Comment: Speci men Type: BLOOD SPECIMENOrdering Facility: [facility] Address: [address] [place] [address] Performed By: #### 5 7021-8 ####[facility] LABCLIA [id number] [place] [address] MCH (RBC) [Entitic mass] 25.9 pg Low 26.0-34.0 [facility] Comment on above: Order Comment: Speci men Type: BLOOD SPECIMENOrdering Facility: [facility] Address: [address] [place] [address] Performed By: #### 5 7021-8 ####[facility] LABCLIA [id number] [place] [address] MCHC (RBC) [Mass/Vol] 31.5 g/dL Normal 30.5-36.0 [facility] Comment on above: Order Comment: Speci men Type: BLOOD SPECIMENOrdering Facility: [facility] Address: [address] [place] [address] Performed By: #### 5 7021-8 ####[facility] LABIA [id number] [place] [address] MCV (RBC) [Entitic vol] 82.1 fL Normal 80.0-100.0 [facility] Comment on above: Order Comment: Speci men Type: BLOOD SPECIMENOrdering Facility: [facility] Address: [address] [place] [address] Performed By: #### 5 7021-8 ####[facility] LABIA [id number] [place] [address] Monocytes (Bld) [#/Vol] 1.10 10*3/uL High <0.87 [facility] Comment on above: Order Comment: Speci men Type: BLOOD SPECIMENOrdering Facility: [facility] Address: [address] [place] [address] Performed By: #### 5 7021-8 ####[facility] LABCLIA [id number] [place] [address] Monocytes/100 WBC (Bld) 5.6 % Normal [facility] Comment on above: Order Comment: Speci men Type: BLOOD SPECIMENOrdering Facility: [facility] Address: [address] [place] [address] Performed By: #### 5 7021-8 ####[facility] LABCLIA [id number] [place] [address] Neutrophils (Bld) [#/Vol] 17.87 10*3/uL High 1.45-7.50 [facility] Comment on above: Order Comment: Speci men Type: BLOOD SPECIMENOrdering Facility: [facility] Address: [address] [place] [address] Performed By: #### 5 7021-8 ####[facility] LABCLIA [id number] [place] [address] Neutrophils/100 WBC (Bld) 90.7 % Normal [facility] Comment on above: Order Comment: Speci men Type: BLOOD SPECIMENOrdering Facility: [facility] Address: [address] [place] [address] Performed By: #### 5 7021-8 ####[facility] LABCLIA [id number] [place] [address] Nucleated RBC (Bld) [#/Vol] 10*3/uL Normal <0.01 [facility] Comment on above: Order Comment: Speci men Type: BLOOD SPECIMENOrdering Facility: [facility] Address: [address] [place] [address] Performed By: #### 5 7021-8 ####[facility] LABCLIA [id number] [place] [address] Nucleated RBC/100 WBC (Bld) [Ratio] 0.0 /100 WBC Normal [facility] Comment on above: Order Comment: Speci men Type: BLOOD SPECIMENOrdering Facility: [facility] Address: [address] [place] [address] Performed By: #### 5 7021-8 ####[facility] LABCLIA [id number] [place] [address] Platelet mean volume (Bld) [Entitic vol] 9.7 fL Normal 9.0-12.7 [facility] Comment on above: Order Comment: Speci men Type: BLOOD SPECIMENOrdering Facility: [facility] Address: [address] [place] [address] Performed By: #### 5 7021-8 ####[facility] LABCLIA [id number] [place] [address] Platelets (Bld) [#/Vol] 426 10*3/uL High 150-400 [facility] Comment on above: Order Comment: Speci men Type: BLOOD SPECIMENOrdering Facility: [facility] Address: [address] [place] [address] Performed By: #### 5 7021-8 ####[facility] LABCLIA [id number] [place] [address] RBC (Bld) [#/Vol] 3.52 10*6/uL Low 4.20-6.00 [facility] Comment on above: Order Comment: Speci men Type: BLOOD SPECIMENOrdering Facility: [facility] Address: [address] [place] [address] Performed By: #### 5 7021-8 ####[facility] LABCLIA [id number] [place] [address] WBC (Bld) [#/Vol] 19.71 10*3/uL High 3.70-11.00 [facility] Comment on above: Order Comment: Speci men Type: BLOOD SPECIMENOrdering Facility: [facility] Address: [address] [place] [address] Performed By: #### 5 7021-8 ####[facility] LABCLIA [id number] [place] [address] CNNURSEon 02-05-2025 CNNURSE Normal [facility] CNOVSPon 02-05-2025 CNOVSP Normal [facility] Comprehensive metabolic 2000 panelon 02-05-2025 Albumin [Mass/Vol] 3.4 g/dL Low 3.9-4.9 [facility] Comment on above: Order Comment: Speci men Type: BLOOD SPECIMENOrdering Facility: [facility] Address: [address] [place] [address] Performed By: #### 1 9123-9, 22864-7 ####[facility] LABCLIA [id number] [place] [address] ALP [Catalytic activity/Vol] 95 U/L Normal 38-113 [facility] Comment on above: Order Comment: Speci men Type: BLOOD SPECIMENOrdering Facility: [facility] Address: [address] [place] [address] Performed By: #### 1 9123-9, 24182-4 ####[facility] LABCLIA [id number] [place] [address] ALT [Catalytic activity/Vol] 10 U/L Normal 10-54 [facility] Comment on above: Order Comment: Speci men Type: BLOOD SPECIMENOrdering Facility: [facility] Address: [address] [place] [address] Performed By: #### 1 9123-9, 72973-6 ####[facility] LABCLIA [id number] [place] [address] Anion gap [Moles/Vol] 13 mmol/L Normal 8-15 [facility] Comment on above: Order Comment: Speci men Type: BLOOD SPECIMENOrdering Facility: [facility] Address: [address] [place] [address] Performed By: #### 1 9123-9, 13477-5 ####[facility] LABCLIA [id number] [place] [address] AST [Catalytic activity/Vol] 12 U/L Low 14-40 [facility] Comment on above: Order Comment: Speci men Type: BLOOD SPECIMENOrdering Facility: [facility] Address: [address] [place] [address] Performed By: #### 1 9123-9, ####[facility] LABCLIA [id number] [place] [address] Bilirubin [Mass/Vol] 0.3 mg/dL Normal 0.2-1.3 [facility] Comment on above: Order Comment: Speci men Type: BLOOD SPECIMENOrdering Facility: [facility] Address: [address] [place], [place] [address] Performed By: #### 1 9123-9, ####[facility] LABIA [id number] [place] [address] Calcium [Mass/Vol] 9.1 mg/dL Normal 8.5-10.2 [facility] Comment on above: Order Comment: Speci men Type: BLOOD SPECIMENOrdering Facility: [facility] Address: [address] [place], [place] [id number] Performed By: #### 1 9123-9, 65726-9 ####[facility] LABIA [id number] [place] [address] Chloride [Moles/Vol] 104 mmol/L Normal 98-107 [facility] Comment on above: Order Comment: Speci men Type: BLOOD SPECIMENOrdering Facility: [facility] Address: [address] [place] [address] Performed By: #### 1 9123-9, 96765-0 ####[facility]ATIANNANDTROY [facility] LABCLIA [id number] [place] [address] CO2 [Moles/Vol] 19 mmol/L Low 22-30 [facility] Comment on above: Order Comment: Speci men Type: BLOOD SPECIMENOrdering Facility: [facility] Address: [address] [place] [address] Performed By: #### 1 9123-9, 63652-1 ####[facility] LABCLIA [id number] [place] [address] Creatinine [Mass/Vol] 0.89 mg/dL Normal 0.73-1.22 [facility] Comment on above: Order Comment: Ange hull Type: BLOOD SPECIMENOrdering Facility: [facility] Address: [address] [place] [address] Performed By: #### 1 9123-9, 58359-5 ####[facility] LABCLIA [id number] [place] [address] eGFRcr SerPlBld CKD-EPI 2020 96 mL/min/1.73m??? Normal >=60 [facility] Comment on above: Order Comment: Ange hull Type: BLOOD SPECIMENOrdering Facility: [facility] Address: [address] [place] [address] Result Comment: Carly mated Glomerular Filtration Rate [...] actual GFR. Performed By: #### 1 9123-9, 66973-0 ####[facility] LABCLIA [id number] [place] [address] Glucose [Mass/Vol] 132 mg/dL High 74-99 [facility] Comment on above: Order Comment: Ange hull Type: BLOOD SPECIMENOrdering Facility: [facility] Address: [address] [id number] Result Comment: The [place] Diabetes Association (ADA) provides guidance for cutoff [...] Standards of Medical Care in Diabetes 2016, [place] Diabetes Association. Diabetes Care. 2016.39(Suppl 1). Performed By: #### 1 9123-9, ####[facility] LABCLIA [id number] [place] [address] Potassium [Moles/Vol] 3.2 mmol/L Low 3.7-5.1 [facility] Comment on above: Order Comment: Speci men Type: BLOOD SPECIMENOrdering Facility: [facility] Address: [address] [place] [address] Performed By: #### 1 239, ####[facility] LABIA [id number] [place] [address] Protein [Mass/Vol] 7.3 g/dL Normal 6.3-8.0 [facility] Comment on above: Order Comment: Speci men Type: BLOOD SPECIMENOrdering Facility: [facility] Address: [address] [place] [address] Performed By: #### 1 239, ####[facility] LABIA [id number] [place] [address] Sodium [Moles/Vol] 136 mmol/L Normal 136-144 [facility] Comment on above: Order Comment: Speci men Type: BLOOD SPECIMENOrdering Facility: [facility] Address: [address] [place] [address] Performed By: #### 1 239, ####[facility] LABIA [id number] [place] [address] Urea nitrogen [Mass/Vol] 19 mg/dL Normal 9-24 [facility] Comment on above: Order Comment: Speci men Type: BLOOD SPECIMENOrdering Facility: [facility] Address: [address] [place] [address] [place] [address] Performed By: #### 1 9123-9, 03300-5 ####[facility] LABIA [id number] [place] [address] Family Medicine Office/Clini c Noteon 02-05-2025 Family [...] kidney stones Hospital discharge follow-up Hx of senior care use of blood thinners Impaired mobility Kidney [...] 02-05 Magnesium [Mass/Vol] 1.7 mg/dL Normal 1.7-2.3 [facility] Comment on above: Order Comment: Speci men Type: BLOOD SPECIMENOrdering Facility: [facility] Address: [address] [place] [address] Performed By: #### 1 9123-9, 87681-7 ####[facility] LABCLIA [id number] [place] [address] Ambulatory Visit Summaryon 0 02-02-2025 Ambulatory Visit [...] kidney stones Hospital discharge follow-up Hx of emt intermediate use of blood thinners Impaired mobility Kidney [...] signed up for this yet, please contact [employer] at [phone] to get signed up today. Language Information Language assistance services are available as needed. Normal [facility] CNNURSEon 02-02-2025 CNNURSE Normal [facility] CNNURSEon 02-01-2025 CNNURSE Normal [facility] CNNURSEon 01-31-2025 CNNURSE Normal [facility] CNOVon 01-31-2025 CNOV Normal [facility] CNNURSEon 01-30-2025 CNNURSE Normal [facility] CNOVSPon 01-30-2025 CNOVSP Normal [facility] CNPNon 01-30-2025 CNPN Normal [facility] CNNURSEon 01-29-2025 CNNURSE Normal [facility] Bacteria Bld Culton 01-27-20 25 Bacteria identified Cx Nom (Bld) CULTURE, BLOOD: No growth 5 days Normal [facility] Comment on above: Performed By: #### 6 00-7 ####[facility] LABCLIA [id number] [facility] [address] [place] [address] [place] Bacteria identified Cx Nom (Bld) CULTURE, BLOOD: No growth 5 days Normal [facility] Comment on above: Performed By: #### 6 00-7 ####[facility] LABCLIA [id number] [facility] [address] [place] [address] [place] Bacteria Ur Culton 5 Bacteria identified Cx Nom (U) ORGANISM ID: 1 <10,000 CFU/ml Normal urogenital felisa Normal [facility] Comment on above: Performed By: #### 6 30-4 ####[facility] LABCLIA [id number] [facility] [address] [place] [address] [place] CNNURSEon 01-26-2025 CNNURSE Normal [facility] CNPNon 01-26-2025 CNPN Normal [facility] UA DIP, URINE (POC)on 2024 BILIRUBIN UA (POCT) Small Abnormal Negative [facility] CLARITY UA (POCT) Slightly Cloudy Cl [facility] COLOR UA (POCT) Tonja [facility] GLUCOSE UA (POCT) Negative Negative mg/dL [facility] Hemoglobin Ql (U) Negative Negative [facility] Interpretation and review of laboratory results Abnormal [facility] KETONE UA (POCT) 15 mg/dL Abnormal Negative [facility] LEUKOCYTES UA (POCT) Negative Negative [facility] NITRITE UA (POCT) Negative Negative [facility] PH UA (POCT) 6.0 4.5 - 8.0 [facility] Protein Ql (U) 100 mg/dL Abnormal Negative [facility] SPECIFIC GRAVITY UA (POCT) 1.020 1.005 - 1.030 [facility] UROBILINOGEN UA (POCT) 0.2 Karen l E.U./dL [facility] Location:[facility], [address] , [place], [place], [id number] [place] [address] POINT OF CARE [facility] XR CHEST 2V FRONTAL/LATon XR CHEST 2V FRONTAL/LAT Normal [facility] XR Chest PA and Lateralon IMPRESSION: No acute cardiopulmonary process. Transcribe Date/Time: Jan 26 2025 3:14P Dictated by: BEOB ANDREA MD This examination was interpreted and the report reviewed and electronically signed by: BEBO ANDREA MD on Jan 26 2025 3:19PM EST Thank you for allowing us to participate in the care of your patient. Should there be any questions regarding this interpretation, please call [phone]. If you are unable to reach us at the number above, please feel free to contact [facility] eRadiology at [phone]. DIVISION OF RADIOLOGY * * *Final Report* [...] vasculature is unremarkable. DIVISION OF RADIOLOGY Provider, [facility] Omid [facility] - 01/26/2025 * * *Final Report* [...] any questions regarding this interpretation, please call [phone]. If you are unable to reach us at the number above, please feel free to contact [facility]iology at [phone]. [facility] Radiology Study observation (narrative) Aniket carvalho [facility] XR Chest PA and LateralOrder ed By: Cc Provider on 01-26-2025 [facility] CBC W Auto Differential pane l (Bld)Ordered By: Elpidio Smith on 01-25-2025 Anisocytosis Ql (Bld) Present [facility] Basophils (Bld) [#/Vol] NINF C [facility] Basophils/100 WBC (Bld) 1.0 % C [facility] Eosinophils (Bld) [#/Vol] 0.07 10*3/uL NINF [facility] Eosinophils/100 WBC (Bld) 3.5 % [facility] Erythrocyte distribution width (RBC) [Ratio] 15.2 % High 11.5 - 15.0 % [facility] Hematocrit (Bld) [Volume fraction] 28.8 % Low 39.0 - 51.0 % [facility] Hemoglobin (Bld) [Mass/Vol] 9.4 g/dL Low 13.0 - 17.0 g/dL [facility] Immature granulocytes (Bld) [#/Vol] NINF [facility] Immature granulocytes/100 WBC (Bld) 1.0 % [facility] Interpretation and review of laboratory results Abnormal [facility] Lymphocytes (Bld) [#/Vol] 0.87 10*3/uL Low [facility] Lymphocytes/100 WBC (Bld) 43.7 % [facility] MCH (RBC) [Entitic mass] 26.6 pg 26.0 - 34.0 pg [facility] MCHC (RBC) [Mass/Vol] 32.6 g/dL 30.5 - 36.0 g/dL [facility] MCV (RBC) [Entitic vol] 81.4 fL 80.0 - 100.0 fL [facility] Monocytes (Bld) [#/Vol] 0.65 10*3/uL [facility] Monocytes/100 WBC (Bld) 32.7 % C [facility] Neutrophils (Bld) [#/Vol] 0.36 10*3/uL Low [facility] Neutrophils/100 WBC (Bld) 18.1 % [facility] Ovalocytes LM Ql (Bld) Few Cl [facility] Platelet clump LM Ql (Bld) Present [facility] Platelet mean volume (Bld) [Entitic vol] 10.2 fL 9.0 - 12.7 fL [facility] Platelets (Bld) [#/Vol] 270 10*3/uL [facility] Comment on above: No clot detected. Platelets Estimate (Bld) [#/Vol] Adequate [facility] RBC (Bld) [#/Vol] 3.54 10*6/uL Low 4.20 - 6.00 m/uL [facility] RBC Fragments Few Abnormal None Seen [facility] Red Cell Morph Reviewed: see result s of individual morphologies [facility] WBC (Bld) [#/Vol] 1.99 10*3/uL Low [facility] WBC Left Shift Ql (Bld) Present C [facility] The following result s were reported as preliminary values due to instrument flagging. Interpret with caution. Final results may vary. Results requested and read back by: CHARLOTTE BUTLER AT 1455 ON 01-24-25 BY Mason SUTTON ANC=0.36 [facility] CNNURSEon 01-25-2025 CNNURSE Normal [facility] CNPNon 01-25-2025 CNPN Normal [facility] CBC W Auto Differential pane l (Bld)on 01-24-2025 Anisocytosis Ql (Bld) Present Normal [facility] Comment on above: Order Comment: Speci men Type: BLOOD SPECIMENOrdering Facility: [facility] Address: [address] [place] [address] Performed By: #### 5 7021-8 ####[facility] LABCLIA [id number] [address] LABCLIA [id number] [place] [address] [place] Basophils (Bld) [#/Vol] 10*3/uL Normal <0.11 [facility] Comment on above: Order Comment: Speci men Type: BLOOD SPECIMENOrdering Facility: [facility] Address: [address] [place] [address] Performed By: #### 5 7021-8 ####[facility] LABCLIA [id number] [address] LABCLIA [id number] [place] [address] [place] Basophils/100 WBC (Bld) 1.0 % Normal [facility] Comment on above: Order Comment: Speci men Type: BLOOD SPECIMENOrdering Facility: [facility] Address: [address] [place] [address] Performed By: #### 5 7021-8 ####[facility] LABCLIA [id number] [address] LABCLIA [id number] [place] [id number] [place] Eosinophils (Bld) [#/Vol] 0.07 10*3/uL Normal <0.46 [facility] Comment on above: Order Comment: Speci men Type: BLOOD SPECIMENOrdering Facility: [facility] Address: [address] [place] [address] Performed By: #### 5 7021-8 ####[facility] LABCLIA [id number] [address] LABCLIA [id number] [place] [address] [place] Eosinophils/100 WBC (Bld) 3.5 % Normal [facility] Comment on above: Order Comment: Speci men Type: BLOOD SPECIMENOrdering Facility: [facility] Address: [address] [place] [address] Performed By: #### 5 7021-8 ####[facility] LABCLIA [id number] [address] LABCLIA [id number] [place] [address] [place] Erythrocyte distribution width (RBC) [Ratio] 15.2 % High 11.5-15.0 [facility] Comment on above: Order Comment: Speci men Type: BLOOD SPECIMENOrdering Facility: [facility] Address: [address] [place] [address] Performed By: #### 5 7021-8 ####[facility] LABCLIA [id number] [address] LABCLIA [id number] [place] [address] [place] Hematocrit (Bld) [Volume fraction] 28.8 % Low 39.0-51.0 [facility] Comment on above: Order Comment: Speci men Type: BLOOD SPECIMENOrdering Facility: [facility] Address: [address] [place] [address] Performed By: #### 5 7021-8 ####[facility] LABCLIA [id number] [place] [id number] LABCLIA [id number] [address] [address] [place] Hemoglobin (Bld) [Mass/Vol] 9.4 g/dL Low 13.0-17.0 [facility] Comment on above: Order Comment: Speci men Type: BLOOD SPECIMENOrdering Facility: [facility] Address: [address] [place] [address] Performed By: #### 5 7021-8 ####[facility] LABCLIA [id number] [address] LABCLIA [id number] [place] [id number] [place] Immature granulocytes (Bld) [#/Vol] 10*3/uL Normal <0.10 [facility] Comment on above: Order Comment: Speci men Type: BLOOD SPECIMENOrdering Facility: [facility] Address: [address] [place] [address] Performed By: #### 5 7021-8 ####[facility] LABCLIA [id number] [address] LABCLIA [id number] [place] [id number] [place] Immature granulocytes/100 WBC (Bld) 1.0 % Normal [facility] Comment on above: Order Comment: Speci men Type: BLOOD SPECIMENOrdering Facility: [facility] Address: [address] [place] [address] Performed By: #### 5 7021-8 ####[facility] LABCLIA [id number] [address] LABCLIA [id number] [place] [id number] [place] Lymphocytes (Bld) [#/Vol] 0.87 10*3/uL Low 1.00-4.00 [facility] Comment on above: Order Comment: Speci men Type: BLOOD SPECIMENOrdering Facility: [facility] Address: [address] [place] [address] Performed By: #### 5 7021-8 ####[facility] LABCLIA [id number] [address] LABCLIA [id number] [place] [address] [place] Lymphocytes/100 WBC (Bld) 43.7 % Normal [facility] Comment on above: Order Comment: Speci men Type: BLOOD SPECIMENOrdering Facility: [facility] Address: [address] [place] [address] Performed By: #### 5 7021-8 ####[facility] LABCLIA [id number] [address] LABCLIA [id number] [place] [address] [place] MCH (RBC) [Entitic mass] 26.6 pg Normal 26.0-34.0 [facility] Comment on above: Order Comment: Speci men Type: BLOOD SPECIMENOrdering Facility: [facility] Address: [address] [place] [address] Performed By: #### 5 7021-8 ####[facility] LABCLIA [id number] [address] LABCLIA [id number] [place] [address] [place] MCHC (RBC) [Mass/Vol] 32.6 g/dL Normal 30.5-36.0 [facility] Comment on above: Order Comment: Speci men Type: BLOOD SPECIMENOrdering Facility: [facility] Address: [address] [place] [address] Performed By: #### 5 7021-8 ####[facility] LABCLIA [id number] [place] [id number] LABCLIA [id number] [place] [address] [place] MCV (RBC) [Entitic vol] 81.4 fL Normal 80.0-100.0 [facility] Comment on above: Order Comment: Speci men Type: BLOOD SPECIMENOrdering Facility: [facility] Address: [address] [place] [address] Performed By: #### 5 7021-8 ####[facility] LABCLIA [id number] [address] LABCLIA [id number] [place] [address] [place] Monocytes (Bld) [#/Vol] 0.65 10*3/uL Normal <0.87 [facility] Comment on above: Order Comment: Speci men Type: BLOOD SPECIMENOrdering Facility: [facility] Address: [address] [place] [address] Performed By: #### 5 7021-8 ####[facility] LABCLIA [id number] [address] LABCLIA [id number] [place] [address] [place] Monocytes/100 WBC (Bld) 32.7 % Normal [facility] Comment on above: Order Comment: Speci men Type: BLOOD SPECIMENOrdering Facility: [facility] Address: [address] [place] [address] Performed By: #### 5 7021-8 ####[facility] LABCLIA [id number] [address] LABCLIA [id number] [place] [address] [place] Neutrophils (Bld) [#/Vol] 0.36 10*3/uL Low 1.45-7.50 [facility] Comment on above: Order Comment: Speci men Type: BLOOD SPECIMENOrdering Facility: [facility] Address: [address] [place] [address] Performed By: #### 5 7021-8 ####[facility] LABCLIA [id number] [address] LABCLIA [id number] [place] [address] [place] Neutrophils/100 WBC (Bld) 18.1 % Normal [facility] Comment on above: Order Comment: Speci men Type: BLOOD SPECIMENOrdering Facility: [facility] Address: [address] [place] [address] Performed By: #### 5 7021-8 ####[facility] LABCLIA [id number] [address] LABCLIA [id number] [place] [address] [place] Ovalocytes LM Ql (Bld) Few Normal [facility] Comment on above: Order Comment: Speci men Type: BLOOD SPECIMENOrdering Facility: [facility] Address: [address] [place] [address] Performed By: #### 5 7021-8 ####[facility] LABCLIA [id number] [address] LABCLIA [id number] [place] [address] [place] Platelet clump LM Ql (Bld) Present Normal [facility] Comment on above: Order Comment: Speci men Type: BLOOD SPECIMENOrdering Facility: [facility] Address: [address] [place] [address] Performed By: #### 5 7021-8 ####[facility] LABCLIA [id number] [address] [facility] LABCLIA [id number] [address] [address] [place] Platelet mean volume (Bld) [Entitic vol] 10.2 fL Normal 9.0-12.7 [facility] Comment on above: Order Comment: Speci men Type: BLOOD SPECIMENOrdering Facility: [facility] Address: [address] [place] [address] Performed By: #### 5 7021-8 ####[facility] LABCLIA [id number] [address] LABCLIA [id number] [place] [address] [place] Platelets (Bld) [#/Vol] 270 10*3/uL Normal 150-400 [facility] Comment on above: Order Comment: Speci men Type: BLOOD SPECIMENOrdering Facility: [facility] Address: [address] [place] [address] Result Comment: No c lot detected. Performed By: #### 5 7021-8 ####[facility] LABCLIA [id number] [address] LABCLIA [id number] [place] [address] [place] Platelets Estimate (Bld) [#/Vol] Adequate Normal [facility] Comment on above: Order Comment: Speci men Type: BLOOD SPECIMENOrdering Facility: [facility] Address: [address] [place] [address] Performed By: #### 5 7021-8 ####[facility] LABCLIA [id number] [address] LABCLIA [id number] [place] [address] [place] RBC (Bld) [#/Vol] 3.54 10*6/uL Low 4.20-6.00 [facility] Comment on above: Order Comment: Speci men Type: BLOOD SPECIMENOrdering Facility: [facility] Address: [address] [place] [address] Performed By: #### 5 7021-8 ####[facility] LABCLIA [id number] [place] [id number] LABCLIA [id number] [place] [address] [place] RBC FRAGMENTS Few Abnormal None Seen [facility] Comment on above: Order Comment: Speci men Type: BLOOD SPECIMENOrdering Facility: [facility] Address: [address] [place] [address] Performed By: #### 5 7021-8 ####[facility] LABCLIA [id number] [address] LABCLIA [id number] [place] [address] [place] RED CELL MORPH Reviewed: see result s of individual morphologies Normal [facility] Comment on above: Order Comment: Speci men Type: BLOOD SPECIMENOrdering Facility: [facility] Address: [address] [place] [address] Performed By: #### 5 7021-8 ####[facility] LABCLIA [id number] [address] LABCLIA [id number] [place] [address] [place] WBC (Bld) [#/Vol] 1.99 10*3/uL Low 3.70-11.00 [facility] Comment on above: Order Comment: Speci men Type: BLOOD SPECIMENOrdering Facility: [facility] Address: [address] [place] [address] Performed By: #### 5 7021-8 ####[facility] LABCLIA [id number] [address] LABCLIA [id number] [place] [address] [place] WBC Left Shift Ql (Bld) Present Normal [facility] Comment on above: Order Comment: Speci men Type: BLOOD SPECIMENOrdering Facility: [facility] Address: [address] [place] [address] Performed By: #### 5 7021-8 ####[facility] LABCLIA [id number] [place], [place] [address] LABCLIA [id number] [place] [address] [place] CNNURSEon 01-24-2025 CNNURSE Normal [facility] CNOVon 01-24-2025 CNOV Normal [facility] CNPNon 01-24-2025 CNPN Normal [facility] Comprehensive metabolic 2000 panelOrdered By: Kayla Sutton on 01-24-2025 Albumin [Mass/Vol] 3.8 g/dL Low 3.9 - 4.9 g/dL [facility] ALP [Catalytic activity/Vol] 73 U/L 38 - 113 U/L [facility] ALT [Catalytic activity/Vol] 11 U/L 10 - 54 U/L [facility] Anion gap [Moles/Vol] 12 mmol/L 8 - 15 mmol/L [facility] AST [Catalytic activity/Vol] 10 U/L Low 14 - 40 U/L [facility] Bilirubin [Mass/Vol] 0.4 mg/dL 0.2 - 1 .3 mg/dL [facility] Calcium [Mass/Vol] 9.6 mg/dL 8.5 - 10. 2 mg/dL [facility] Chloride [Moles/Vol] 98 mmol/L 98 - 10 7 mmol/L [facility] CO2 [Moles/Vol] 21 mmol/L Low 22 - 30 mmol/L [facility] Creatinine [Mass/Vol] 0.88 mg/dL 0.73 - 1.22 mg/dL [facility] GFR/1.73 sq M.predicted among non-blacks MDRD (S/P/Bld) [Vol rate/Area] 97 mL/min/{1.73_m2} - PINF [facility] Comment on above: Estimated Glomerular Filtration [...] [Mass/Vol] 93 mg/dL 74 - 99 mg/dL [facility] Comment on above: The [place] Diabete s Association (ADA) provides guidance for [...] Standards of Medical Care in Diabetes 2016, [place] Diabetes Association. Diabetes Care. 2016.39(Suppl 1). Interpretation and review of laboratory results Abnormal [facility] Potassium [Moles/Vol] 4.5 mmol/L 3.7 - 5.1 mmol/L [facility] Protein [Mass/Vol] 7.9 g/dL 6.3 - 8.0 g/dL [facility] Sodium [Moles/Vol] 131 mmol/L Low 136 - 144 mmol/L [facility] Urea nitrogen [Mass/Vol] 17 mg/dL 9 - 24 mg/dL [facility] Comprehensive metabolic 2000 panelon 01-24-2025 Albumin [Mass/Vol] 3.8 g/dL Low 3.9-4.9 [facility] Comment on above: Order Comment: Speci men Type: BLOOD SPECIMENOrdering Facility: [facility] Address: [address] [place] [address] Performed By: #### 2 4323-8 ####[facility] LABCLIA [id number] [place] [address] ALP [Catalytic activity/Vol] 73 U/L Normal 38-113 [facility] Comment on above: Order Comment: Speci men Type: BLOOD SPECIMENOrdering Facility: [facility] Address: [address] [place] [address] Performed By: #### 2 4323-8 ####[facility] LABCLIA [id number] [place] [address] ALT [Catalytic activity/Vol] 11 U/L Normal 10-54 [facility] Comment on above: Order Comment: Speci men Type: BLOOD SPECIMENOrdering Facility: [facility] Address: [address] [place] [address] Performed By: #### 2 4323-8 ####[facility] LABCLIA [id number] [place] [address] Anion gap [Moles/Vol] 12 mmol/L Normal 8-15 [facility] Comment on above: Order Comment: Speci men Type: BLOOD SPECIMENOrdering Facility: [facility] Address: [address] [place] [address] Performed By: #### 2 4323-8 ####[facility] LABCLIA [id number] [place] [address] AST [Catalytic activity/Vol] 10 U/L Low 14-40 [facility] Comment on above: Order Comment: Speci men Type: BLOOD SPECIMENOrdering Facility: [facility] Address: [address] [place], [place] [address] Performed By: #### 2 4323-8 ####[facility] LABCLIA [id number] [place] [address] Bilirubin [Mass/Vol] 0.4 mg/dL Normal 0.2-1.3 [facility] Comment on above: Order Comment: Speci men Type: BLOOD SPECIMENOrdering Facility: [facility] Address: [address] [place] [address] Performed By: #### 2 4323-8 ####[facility] LABCLIA [id number] [place] [address] Calcium [Mass/Vol] 9.6 mg/dL Normal 8.5-10.2 [facility] Comment on above: Order Comment: Speci men Type: BLOOD SPECIMENOrdering Facility: [facility] Address: [address] [place] [address] Performed By: #### 2 4323-8 ####[facility] LABCLIA [id number] [place] [address] Chloride [Moles/Vol] 98 mmol/L Normal 98-107 [facility] Comment on above: Order Comment: Speci men Type: BLOOD SPECIMENOrdering Facility: [facility] Address: [address] [place] [address] Performed By: #### 2 4323-8 ####[facility] LABCLIA [id number] [place] [address] CO2 [Moles/Vol] 21 mmol/L Low 22-30 [facility] Comment on above: Order Comment: Speci men Type: BLOOD SPECIMENOrdering Facility: [facility] Address: [address] [place] [address] Performed By: #### 2 4323-8 ####[facility] LABCLIA [id number] [place] [address] Creatinine [Mass/Vol] 0.88 mg/dL Normal 0.73-1.22 [facility] Comment on above: Order Comment: Speci men Type: BLOOD SPECIMENOrdering Facility: [facility] Address: [address] [place] [address] Performed By: #### 2 4323-8 ####[facility] LABCLIA [id number] [place] [address] eGFRcr SerPlBld CKD-EPI 2021 97 mL/min/1.73m??? Normal >=60 [facility] Comment on above: Order Comment: Speci men Type: BLOOD SPECIMENOrdering Facility: [facility] Address: [address] [place] [address] Result Comment: Carly mated Glomerular Filtration Rate [...] actual GFR. Performed By: #### 2 4323-8 ####[facility] LABCLIA [id number] [place] [address] Glucose [Mass/Vol] 93 mg/dL Normal 74-99 [facility] Comment on above: Order Comment: Speci men Type: BLOOD SPECIMENOrdering Facility: [facility] Address: [address] [place], [place] [id number] Result Comment: The [place] Diabetes Association (ADA) provides guidance for cutoff [...] Standards of Medical Care in Diabetes 2016, [place] Diabetes Association. Diabetes Care. 2016.39(Suppl 1). Performed By: #### 2 4323-8 ####[facility] LABCLIA [id number] [place] [address] Potassium [Moles/Vol] 4.5 mmol/L Normal 3.7-5.1 [facility] Comment on above: Order Comment: Speci men Type: BLOOD SPECIMENOrdering Facility: [facility] Address: [address] [place] [address] Performed By: #### 2 4323-8 ####[facility] LABCLIA [id number] [place] [address] Protein [Mass/Vol] 7.9 g/dL Normal 6.3-8.0 [facility] Comment on above: Order Comment: Speci men Type: BLOOD SPECIMENOrdering Facility: [facility] Address: [address] [place], [place] [address] Performed By: #### 2 4323-8 ####[facility] LABCLIA [id number] [place] [address] Sodium [Moles/Vol] 131 mmol/L Low 136-144 [facility] Comment on above: Order Comment: Speci men Type: BLOOD SPECIMENOrdering Facility: [facility] Address: [address] [place] [address] Performed By: #### 2 4323-8 ####[facility] LABCLIA [id number] [place] [address] Urea nitrogen [Mass/Vol] 17 mg/dL Normal 9-24 [facility] Comment on above: Order Comment: Speci men Type: BLOOD SPECIMENOrdering Facility: [facility] Address: [address] [place] [address] Performed By: #### 2 4323-8 ####[facility] LABCLIA [id number] [place] [address] CNNURSEon 01-23-2025 CNNURSE Normal [facility] CNOVon 01-23-2025 CNOV Normal [facility] CNOVSPon 01-23-2025 CNOVSP Normal [facility] CNNURSEon 01-22-2025 CNNURSE Normal [facility] Population Healthon 01-23-20 Population Health Population Health Case Information Case Priority: None Programs: -- Referral Source: Inside Sales Account Manager Referral Reason: Care coordination Case Type: Transition Care Management Risk Score: -- Case Status: Enrolled (January 22, 2025) Date Assigned: January 22, 2025 Assigned By: Gordo Humphries Date Enrolled: January 22, 2025 Assigned Primary Personnel: Gordo Humphries Assigned Secondary Personnel: -- Case Physician: Dennis BARREL INSPECTOR, Carlos L Problems Ongoing Arthritis BMI 27.0-27.9,adult BPH with urinary obstruction Encounter to establish care Fever Flank pain Former smoker Gout Head injury History of kidney stones Hospital discharge follow-up Hx of emt intermediate use of blood thinners Impaired mobility Kidney [...] Vitamin+ ondansetron 8 mg Tab Potassium Chloride (Bhu-Bkdr-Goo M20) 20 mEq oral tablet, extended release [...] Care Plan Progress Note Admit Date: 01/15/25 [facility] Date of Discharge: 01/18/25 Follow-up [...] issues. Patient has follow up with his news photographer tomorrow 02/09/25 and appointment with Palliative Care [...] tcm note. Created By: Gordo Humphries Normal [facility] CNNURSEon 01-19-2025 CNNURSE Normal [facility] Basic Metabolic Panelon Anion gap [Moles/Vol] 14.5 mmol/L Normal 6.0-15.0 [facility] Comment on above: Performed By: #### M G, HS TROP, DDIMER, TSH3, CMP, BNP, CBC, [id number], PTT, PT #### [facility] [address] Calcium [Mass/Vol] 9.0 mg/dL Normal 8.6-10.3 [facility] Comment on above: Performed By: #### M G, HS TROP, DDIMER, TSH3, CMP, BNP, CBC, [id number], PTT, PT #### [address] Chloride [Moles/Vol] 102 mmol/L Normal 98-107 [facility] Comment on above: Performed By: #### M G, HS TROP, DDIMER, TSH3, CMP, BNP, CBC, [id number], PTT, PT #### [address] CO2 [Moles/Vol] 20.7 mmol/L Low 21.0-31.0 [facility] Comment on above: Performed By: #### M G, HS TROP, DDIMER, TSH3, CMP, BNP, CBC, [id number], PTT, PT #### [address] Creatinine [Mass/Vol] 0.67 mg/dL Low 0.70-1.30 [facility] Comment on above: Performed By: #### M G, HS TROP, DDIMER, TSH3, CMP, BNP, CBC, [id number], PTT, PT #### [address] Creatinine Clr Calc Pharmacy 109.18 Normal [facility] Comment on above: Result Comment: PERF ORMED BY: [place] [address] PATHOLOGIST MARKETING SENIOR RECRUITER KELVIN HOLMAN M.D. Performed By: #### M G, HS TROP, DDIMER, TSH3, CMP, BNP, CBC, [id number], PTT, PT #### [place] [address] [place] GFR/1.73 sq M.predicted MDRD (S/P/Bld) [Vol rate/Area] mL/min/{1.73_m2} Normal [facility] Comment on above: Performed By: #### M G, HS TROP, DDIMER, TSH3, CMP, BNP, CBC, [id number], PTT, PT #### [facility] [address] Glucose [Mass/Vol] 83 mg/dL Normal 70-100 [facility] Comment on above: Result Comment: [place] Glucose Reference Range is dependent on time and content of last meal. Glucose of more than 200 mg/dL in a nonstressed, ambulatory subject supports the diagnosis of Diabetes Mellitus. ADA recommended reference range Performed By: #### M G, HS TROP, DDIMER, TSH3, CMP, BNP, CBC, [id number], PTT, PT #### [facility] [address] Potassium [Moles/Vol] 4.2 mmol/L Normal 3.5-5.1 [facility] Comment on above: Performed By: #### M G, HS TROP, DDIMER, TSH3, CMP, BNP, CBC, [id number], PTT, PT #### [facility] [address] Sodium [Moles/Vol] 133 mmol/L Low 136-145 [facility] Comment on above: Performed By: #### M G, HS TROP, DDIMER, TSH3, CMP, BNP, CBC, [id number], PTT, PT #### [facility] [address] Urea nitrogen [Mass/Vol] 17 mg/dL Normal 7-25 [facility] Comment on above: Performed By: #### M G, HS TROP, DDIMER, TSH3, CMP, BNP, CBC, [id number], PTT, PT #### [facility] [address] [place] [address] [place] CNNURSEon 01-18-2025 CNNURSE Normal [facility] CNOVon 01-18-2025 CNOV Normal [facility] CNOVSPon 01-18-2025 CNOVSP Normal [facility] CNPNon 01-18-2025 CNPN Normal [facility] Mcleod Diff and CBCon 01-18-2025 Anisocytosis Ql (Bld) Slight Normal [facility] Comment on above: Performed By: #### M G, HS TROP, DDIMER, TSH3, CMP, BNP, CBC, [id number], PTT, PT #### [address] Band form neutrophils/100 WBC (Bld) 6 % High 0-5 [facility] Comment on above: Performed By: #### M G, HS TROP, DDIMER, TSH3, CMP, BNP, CBC, [id number], PTT, PT #### [address] Eosinophils/100 WBC (Bld) 6 % High 1-3 [facility] Comment on above: Performed By: #### M G, HS TROP, DDIMER, TSH3, CMP, BNP, CBC, [id number], PTT, PT #### [address] Erythrocyte distribution width (RBC) [Ratio] 16.0 % High 12.0-14.8 [facility] Comment on above: Performed By: #### M G, HS TROP, DDIMER, TSH3, CMP, BNP, CBC, [id number], PTT, PT #### [address] Giant Platelet Tally 3 /100{WBC} Normal [facility] Comment on above: Performed By: #### M G, HS TROP, DDIMER, TSH3, CMP, BNP, CBC, [id number], PTT, PT #### [address] Hematocrit (Bld) [Volume fraction] 25.7 % Low 38.8-50.0 [facility] Comment on above: Performed By: #### M G, HS TROP, DDIMER, TSH3, CMP, BNP, CBC, [id number], PTT, PT #### [place] [address] [place] Hemoglobin (Bld) [Mass/Vol] 8.5 g/dL Low 13.0-17.0 [facility] Comment on above: Performed By: #### M G, HS TROP, DDIMER, TSH3, CMP, BNP, CBC, [id number], PTT, PT #### [address] Hypochromasia Slight Normal [facility] Comment on above: Performed By: #### M G, HS TROP, DDIMER, TSH3, CMP, BNP, CBC, [id number], PTT, PT #### [address] Lymphocytes/100 WBC (Bld) 15 % Low 18-42 [facility] Comment on above: Performed By: #### M G, HS TROP, DDIMER, TSH3, CMP, BNP, CBC, [id number], PTT, PT #### [address] MCH (RBC) [Entitic mass] 26.4 pg Low 27.5-35.2 [facility] Comment on above: Performed By: #### M G, HS TROP, DDIMER, TSH3, CMP, BNP, CBC, [id number], PTT, PT #### [address] MCV (RBC) [Entitic vol] 80.1 fL Low 83.5-101 T [facility] Comment on above: Performed By: #### M G, HS TROP, DDIMER, TSH3, CMP, BNP, CBC, [id number], PTT, PT #### [address] Mean Corpuscular HGB Conc 33.0 g/dL Normal 32.5-35.6 [facility] Comment on above: Performed By: #### M G, HS TROP, DDIMER, TSH3, CMP, BNP, CBC, [id number], PTT, PT #### [address] Microcytosis Slight Normal [facility] Comment on above: Performed By: #### M G, HS TROP, DDIMER, TSH3, CMP, BNP, CBC, [id number], PTT, PT #### [address] Monocytes/100 WBC (Bld) 1 % Low 2-11 T he [facility] Comment on above: Performed By: #### M G, HS TROP, DDIMER, TSH3, CMP, BNP, CBC, [id number], PTT, PT #### [address] Ovalocytes Slight Normal [facility] Comment on above: Performed By: #### M G, HS TROP, DDIMER, TSH3, CMP, BNP, CBC, [id number], PTT, PT #### [address] Platelet Estimate Normal Normal Normal [facility] Comment on above: Performed By: #### M G, HS TROP, DDIMER, TSH3, CMP, BNP, CBC, [id number], PTT, PT #### [address] Platelet mean volume (Bld) [Entitic vol] 8.2 fL Normal 6.6-10.1 [facility] Comment on above: Result Comment: PERF ORMED BY: [place] [address] PATHOLOGIST MARKETING SENIOR RECRUITER KELVIN HOLMAN M.D. Performed By: #### M G, HS TROP, DDIMER, TSH3, CMP, BNP, CBC, [id number], PTT, PT #### [place] [id number] [facility] Platelet Morphology Normal Normal Normal [facility] Comment on above: Result Comment: PERF ORMED BY: [place] [address] PATHOLOGIST MARKETING SENIOR RECRUITER KELVIN HOLMAN M.D. Performed By: #### M G, HS TROP, DDIMER, TSH3, CMP, BNP, CBC, [id number], PTT, PT #### [address] Platelets (Bld) [#/Vol] 150 10*3/uL Normal 150-450 [facility] Comment on above: Performed By: #### M G, HS TROP, DDIMER, TSH3, CMP, BNP, CBC, [id number], PTT, PT #### [address] Poikilocytosis Slight Normal [facility] Comment on above: Performed By: #### M G, HS TROP, DDIMER, TSH3, CMP, BNP, CBC, [id number], PTT, PT #### [address] Polychromasia Slight Normal [facility] Comment on above: Performed By: #### M G, HS TROP, DDIMER, TSH3, CMP, BNP, CBC, [id number], PTT, PT #### [address] RBC (Bld) [#/Vol] 3.22 10*6/uL Low 3.90-5.60 [facility] Comment on above: Performed By: #### M G, HS TROP, DDIMER, TSH3, CMP, BNP, CBC, [id number], PTT, PT #### [address] Segmented neutrophils/100 WBC (Bld) 73 % High 50-70 [facility] Comment on above: Performed By: #### M G, HS TROP, DDIMER, TSH3, CMP, BNP, CBC, [id number], PTT, PT #### [address] WBC (Bld) [#/Vol] 4.7 10*3/uL Normal 4.1-10.5 [facility] Comment on above: Performed By: #### M G, HS TROP, DDIMER, TSH3, CMP, BNP, CBC, [id number], PTT, PT #### [address] White Blood Count 4.7 [CFU]/mL Normal 4.1-10.5 [facility] Comment on above: Performed By: #### M G, HS TROP, DDIMER, TSH3, CMP, BNP, CBC, [id number], PTT, PT #### [address] Basic Metabolic Panelon 08-0 Anion gap [Moles/Vol] 14.4 mmol/L Normal 6.0-15.0 Th e [facility] Comment on above: Performed By: #### M G, HS TROP, DDIMER, TSH3, CMP, BNP, CBC, [id number], PTT, PT #### [address] Calcium [Mass/Vol] 8.5 mg/dL Low 8.6-10.3 [facility] Comment on above: Performed By: #### M G, HS TROP, DDIMER, TSH3, CMP, BNP, CBC, [id number], PTT, PT #### [address] Chloride [Moles/Vol] 102 mmol/L Normal 98-107 [facility] Comment on above: Performed By: #### M G, HS TROP, DDIMER, TSH3, CMP, BNP, CBC, [id number], PTT, PT #### [address] CO2 [Moles/Vol] 20.7 mmol/L Low 21.0-31.0 [facility] Comment on above: Performed By: #### M G, HS TROP, DDIMER, TSH3, CMP, BNP, CBC, [id number], PTT, PT #### [address] Creatinine [Mass/Vol] 0.75 mg/dL Normal 0.70-1.30 [facility] Comment on above: Performed By: #### M G, HS TROP, DDIMER, TSH3, CMP, BNP, CBC, [id number], PTT, PT #### [address] Creatinine Clr Calc Pharmacy 97.53 Normal [facility] Comment on above: Result Comment: PERF ORMED BY: [place] [address] PATHOLOGIST MARKETING SENIOR RECRUITER KELVIN HOLMAN M.D. Performed By: #### M G, HS TROP, DDIMER, TSH3, CMP, BNP, CBC, [id number], PTT, PT #### [address] GFR/1.73 sq M.predicted MDRD (S/P/Bld) [Vol rate/Area] mL/min/{1.73_m2} Normal [facility] Comment on above: Performed By: #### M G, HS TROP, DDIMER, TSH3, CMP, BNP, CBC, [id number], PTT, PT #### [address] Glucose [Mass/Vol] 85 mg/dL Normal 70-100 [facility] Comment on above: Result Comment: [facility] Glucose Reference Range is dependent on time and content of last meal. Glucose of more than 200 mg/dL in a nonstressed, ambulatory subject supports the diagnosis of Diabetes Mellitus. ADA recommended reference range Performed By: #### M G, HS TROP, DDIMER, TSH3, CMP, BNP, CBC, [id number], PTT, PT #### [address] Potassium [Moles/Vol] 4.1 mmol/L Normal 3.5-5.1 [facility] Comment on above: Performed By: #### M G, HS TROP, DDIMER, TSH3, CMP, BNP, CBC, [id number], PTT, PT #### [address] Sodium [Moles/Vol] 133 mmol/L Low 136-145 [facility] Comment on above: Performed By: #### M G, HS TROP, DDIMER, TSH3, CMP, BNP, CBC, [id number], PTT, PT #### [address] Urea nitrogen [Mass/Vol] 18 mg/dL Normal 7-25 [facility] Comment on above: Performed By: #### M G, HS TROP, DDIMER, TSH3, CMP, BNP, CBC, [id number], PTT, PT #### [address] Scan and CBCon 01-17-2025 Acanthocytes Slight Normal [facility] Comment on above: Performed By: #### M G, HS TROP, DDIMER, TSH3, CMP, BNP, CBC, [id number], PTT, PT #### [address] Anisocytosis Ql (Bld) Slight Normal [facility] Comment on above: Performed By: #### M G, HS TROP, DDIMER, TSH3, CMP, BNP, CBC, [id number], PTT, PT #### [address] Basophils (Bld) [#/Vol] 0.0 10*3/uL Normal 0.0-0.2 [facility] Comment on above: Performed By: #### M G, HS TROP, DDIMER, TSH3, CMP, BNP, CBC, [id number], PTT, PT #### [address] Basophils/100 WBC (Bld) 0.4 % Normal . T he [facility] Comment on above: Performed By: #### M G, HS TROP, DDIMER, TSH3, CMP, BNP, CBC, [id number], PTT, PT #### [address] Eosinophils (Bld) [#/Vol] 0.1 10*3/uL Normal 0.0-0.45 [facility] Comment on above: Performed By: #### M G, HS TROP, DDIMER, TSH3, CMP, BNP, CBC, [id number], PTT, PT #### [address] [place] [address] [place] Eosinophils/100 WBC (Bld) 1.4 % Normal . [facility] Comment on above: Performed By: #### M G, HS TROP, DDIMER, TSH3, CMP, BNP, CBC, [id number], PTT, PT #### [address] Erythrocyte distribution width (RBC) [Ratio] 16.1 % High 12.0-14.8 [facility] Comment on above: Performed By: #### M G, HS TROP, DDIMER, TSH3, CMP, BNP, CBC, [id number], PTT, PT #### [address] Hematocrit (Bld) [Volume fraction] 28.7 % Low 38.8-50.0 [facility] Comment on above: Performed By: #### M G, HS TROP, DDIMER, TSH3, CMP, BNP, CBC, [id number], PTT, PT #### [address] Hemoglobin (Bld) [Mass/Vol] 9.3 g/dL Low 13.0-17.0 [facility] Comment on above: Performed By: #### M G, HS TROP, DDIMER, TSH3, CMP, BNP, CBC, [id number], PTT, PT #### [address] Lymphocytes (Bld) [#/Vol] 0.9 10*3/uL Low 1.00-4.8 [facility] Comment on above: Performed By: #### M G, HS TROP, DDIMER, TSH3, CMP, BNP, CBC, [id number], PTT, PT #### [address] Lymphocytes/100 WBC (Bld) 11.3 % Normal . [facility] Comment on above: Performed By: #### M G, HS TROP, DDIMER, TSH3, CMP, BNP, CBC, [id number], PTT, PT #### [address] MCH (RBC) [Entitic mass] 26.2 pg Low 27.5-35.2 [facility] Comment on above: Performed By: #### M G, HS TROP, DDIMER, TSH3, CMP, BNP, CBC, [id number], PTT, PT #### [address] MCV (RBC) [Entitic vol] 80.8 fL Low 83.5-101 T [facility] Comment on above: Performed By: #### M G, HS TROP, DDIMER, TSH3, CMP, BNP, CBC, [id number], PTT, PT #### [address] Mean Corpuscular HGB Conc 32.5 g/dL Normal 32.5-35.6 [facility] Comment on above: Performed By: #### M G, HS TROP, DDIMER, TSH3, CMP, BNP, CBC, [id number], PTT, PT #### [address] Microcytosis Slight Normal [facility] Comment on above: Performed By: #### M G, HS TROP, DDIMER, TSH3, CMP, BNP, CBC, [id number], PTT, PT #### [address] Monocytes (Bld) [#/Vol] 0.0 10*3/uL Normal 0.0-0.8 [facility] Comment on above: Performed By: #### M G, HS TROP, DDIMER, TSH3, CMP, BNP, CBC, [id number], PTT, PT #### [address] Monocytes/100 WBC (Bld) 0.6 % Normal . [facility] Comment on above: Performed By: #### M G, HS TROP, DDIMER, TSH3, CMP, BNP, CBC, [id number], PTT, PT #### [place] [address] [place] Neutrophils (Bld) [#/Vol] 6.5 10*3/uL Normal 1.8-7.7 [facility] Comment on above: Performed By: #### M G, HS TROP, DDIMER, TSH3, CMP, BNP, CBC, [id number], PTT, PT #### [address] Neutrophils/100 WBC (Bld) 86.3 % Normal . [facility] Comment on above: Performed By: #### M G, HS TROP, DDIMER, TSH3, CMP, BNP, CBC, [id number], PTT, PT #### [address] NRBC% 0.1 /100{WBC} Normal 0-0.5 [facility] Comment on above: Performed By: #### M G, HS TROP, DDIMER, TSH3, CMP, BNP, CBC, [id number], PTT, PT #### [address] Ovalocytes Slight Normal [facility] Comment on above: Performed By: #### M G, HS TROP, DDIMER, TSH3, CMP, BNP, CBC, [id number], PTT, PT #### [address] Platelet Estimate Normal Normal Normal [facility] Comment on above: Performed By: #### M G, HS TROP, DDIMER, TSH3, CMP, BNP, CBC, [id number], PTT, PT #### [address] Platelet mean volume (Bld) [Entitic vol] 7.6 fL Normal 6.6-10.1 [facility] Comment on above: Performed By: #### M G, HS TROP, DDIMER, TSH3, CMP, BNP, CBC, [id number], PTT, PT #### [address] Platelet Morphology Normal Normal Normal [facility] Comment on above: Result Comment: PERF ORMED BY: [place] [address] PATHOLOGIST MARKETING SENIOR RECRUITER KELVIN HOLMAN M.D. Performed By: #### M G, HS TROP, DDIMER, TSH3, CMP, BNP, CBC, [id number], PTT, PT #### [address] Platelets (Bld) [#/Vol] 173 10*3/uL Normal 150-450 [facility] Comment on above: Performed By: #### M G, HS TROP, DDIMER, TSH3, CMP, BNP, CBC, [id number], PTT, PT #### [address] Poikilocytosis Slight Normal [facility] Comment on above: Performed By: #### M G, HS TROP, DDIMER, TSH3, CMP, BNP, CBC, [id number], PTT, PT #### [address] Polychromasia Slight Normal [facility] Comment on above: Performed By: #### M G, HS TROP, DDIMER, TSH3, CMP, BNP, CBC, [id number], PTT, PT #### [address] RBC (Bld) [#/Vol] 3.55 10*6/uL Low 3.90-5.60 [facility] Comment on above: Performed By: #### M G, HS TROP, DDIMER, TSH3, CMP, BNP, CBC, [id number], PTT, PT #### [address] Schistocytes Slight Normal [facility] Comment on above: Performed By: #### M G, HS TROP, DDIMER, TSH3, CMP, BNP, CBC, [id number], PTT, PT #### [address] WBC (Bld) [#/Vol] 7.6 10*3/uL Normal 4.1-10.5 [facility] Comment on above: Performed By: #### M G, HS TROP, DDIMER, TSH3, CMP, BNP, CBC, [id number], PTT, PT #### [address] White Blood Count 7.6 [CFU]/mL Normal 4.1-10.5 [facility] Comment on above: Performed By: #### M G, HS TROP, DDIMER, TSH3, CMP, BNP, CBC, [id number], PTT, PT #### [address] Basic Metabolic Panelon 08-0 -2024 Anion gap [Moles/Vol] 13.5 mmol/L Normal 6.0-15.0 [facility] e [facility] Comment on above: Performed By: #### M G, HS TROP, DDIMER, TSH3, CMP, BNP, CBC, [id number], PTT, PT #### [address] Calcium [Mass/Vol] 8.1 mg/dL Low 8.6-10.3 [facility] Comment on above: Performed By: #### M G, HS TROP, DDIMER, TSH3, CMP, BNP, CBC, [id number], PTT, PT #### [address] Chloride [Moles/Vol] 102 mmol/L Normal 98-107 [facility] Comment on above: Performed By: #### M G, HS TROP, DDIMER, TSH3, CMP, BNP, CBC, [id number], PTT, PT #### [address] CO2 [Moles/Vol] 21.5 mmol/L Normal 21.0-31.0 [facility] Comment on above: Performed By: #### M G, HS TROP, DDIMER, TSH3, CMP, BNP, CBC, [id number], PTT, PT #### [address] Creatinine [Mass/Vol] 0.74 mg/dL Normal 0.70-1.30 [facility] Comment on above: Performed By: #### M G, HS TROP, DDIMER, TSH3, CMP, BNP, CBC, [id number], PTT, PT #### [facility] [address] Creatinine Clr Calc Pharmacy 106.94 Normal [facility] Comment on above: Performed By: #### M G, HS TROP, DDIMER, TSH3, CMP, BNP, CBC, [id number], PTT, PT #### [facility] [address] [place] [address] [place] GFR/1.73 sq M.predicted MDRD (S/P/Bld) [Vol rate/Area] mL/min/{1.73_m2} Normal [facility] Comment on above: Performed By: #### M G, HS TROP, DDIMER, TSH3, CMP, BNP, CBC, [id number], PTT, PT #### [facility] [address] Glucose [Mass/Vol] 90 mg/dL Normal 70-100 [facility] Comment on above: Result Comment: [facility] Glucose Reference Range is dependent on time and content of last meal. Glucose of more than 200 mg/dL in a nonstressed, ambulatory subject supports the diagnosis of Diabetes Mellitus. ADA recommended reference range Performed By: #### M G, HS TROP, DDIMER, TSH3, CMP, BNP, CBC, [id number], PTT, PT #### [facility] [address] Potassium [Moles/Vol] 4.0 mmol/L Normal 3.5-5.1 [facility] Comment on above: Performed By: #### M G, HS TROP, DDIMER, TSH3, CMP, BNP, CBC, [id number], PTT, PT #### [facility] [address] Sodium [Moles/Vol] 133 mmol/L Low 136-145 [facility] Comment on above: Performed By: #### M G, HS TROP, DDIMER, TSH3, CMP, BNP, CBC, [id number], PTT, PT #### [address] Urea nitrogen [Mass/Vol] 20 mg/dL Normal 7-25 [facility] Comment on above: Performed By: #### M G, HS TROP, DDIMER, TSH3, CMP, BNP, CBC, [id number], PTT, PT #### [address] Complete Blood Count Auto Di ffon 01-16-2025 Basophils (Bld) [#/Vol] 0.1 10*3/uL Normal 0.0-0.2 [facility] Comment on above: Result Comment: PERF ORMED BY: [place] [address] PATHOLOGIST MARKETING SENIOR RECRUITER KELVIN HOLMAN M.D. Performed By: #### M G, HS TROP, DDIMER, TSH3, CMP, BNP, CBC, [id number], PTT, PT #### [address] Basophils/100 WBC (Bld) 0.8 % Normal . [facility] Comment on above: Performed By: #### M G, HS TROP, DDIMER, TSH3, CMP, BNP, CBC, [id number], PTT, PT #### [address] Eosinophils (Bld) [#/Vol] 0.1 10*3/uL Normal 0.0-0.45 [facility] Comment on above: Performed By: #### M G, HS TROP, DDIMER, TSH3, CMP, BNP, CBC, [id number], PTT, PT #### [address] Eosinophils/100 WBC (Bld) 1.0 % Normal . [facility] Comment on above: Performed By: #### M G, HS TROP, DDIMER, TSH3, CMP, BNP, CBC, [id number], PTT, PT #### [address] Erythrocyte distribution width (RBC) [Ratio] 16.2 % High 12.0-14.8 [facility] Comment on above: Performed By: #### M G, HS TROP, DDIMER, TSH3, CMP, BNP, CBC, [id number], PTT, PT #### [address] Hematocrit (Bld) [Volume fraction] 26.1 % Low 38.8-50.0 [facility] Comment on above: Performed By: #### M G, HS TROP, DDIMER, TSH3, CMP, BNP, CBC, [id number], PTT, PT #### [address] Hemoglobin (Bld) [Mass/Vol] 8.6 g/dL Low 13.0-17.0 [facility] Comment on above: Performed By: #### M G, HS TROP, DDIMER, TSH3, CMP, BNP, CBC, [id number], PTT, PT #### [address] Lymphocytes (Bld) [#/Vol] 0.8 10*3/uL Low 1.00-4.8 [facility] Comment on above: Performed By: #### M G, HS TROP, DDIMER, TSH3, CMP, BNP, CBC, [id number], PTT, PT #### [address] Lymphocytes/100 WBC (Bld) 7.9 % Normal . [facility] Comment on above: Performed By: #### M G, HS TROP, DDIMER, TSH3, CMP, BNP, CBC, [id number], PTT, PT #### [address] MCH (RBC) [Entitic mass] 26.4 pg Low 27.5-35.2 [facility] Comment on above: Performed By: #### M G, HS TROP, DDIMER, TSH3, CMP, BNP, CBC, [id number], PTT, PT #### [address] MCV (RBC) [Entitic vol] 80.1 fL Low 83.5-101 [facility] Comment on above: Performed By: #### M G, HS TROP, DDIMER, TSH3, CMP, BNP, CBC, [id number], PTT, PT #### [address] Mean Corpuscular HGB Conc 33.0 g/dL Normal 32.5-35.6 [facility] Comment on above: Performed By: #### M G, HS TROP, DDIMER, TSH3, CMP, BNP, CBC, [id number], PTT, PT #### [address] Monocytes (Bld) [#/Vol] 0.0 10*3/uL Normal 0.0-0.8 [facility] Comment on above: Performed By: #### M G, HS TROP, DDIMER, TSH3, CMP, BNP, CBC, [id number], PTT, PT #### [address] Monocytes/100 WBC (Bld) 0.4 % Normal . [facility] Comment on above: Performed By: #### M G, HS TROP, DDIMER, TSH3, CMP, BNP, CBC, [id number], PTT, PT #### [address] Neutrophils (Bld) [#/Vol] 9.4 10*3/uL High 1.8-7.7 [facility] Comment on above: Performed By: #### M G, HS TROP, DDIMER, TSH3, CMP, BNP, CBC, [id number], PTT, PT #### [address] Neutrophils/100 WBC (Bld) 89.9 % Normal . [facility] Comment on above: Performed By: #### M G, HS TROP, DDIMER, TSH3, CMP, BNP, CBC, [id number], PTT, PT #### [address] NRBC% 0.1 /100{WBC} Normal 0-0.5 [facility] Comment on above: Performed By: #### M G, HS TROP, DDIMER, TSH3, CMP, BNP, CBC, [id number], PTT, PT #### [address] Platelet mean volume (Bld) [Entitic vol] 7.5 fL Normal 6.6-10.1 [facility] Comment on above: Performed By: #### M G, HS TROP, DDIMER, TSH3, CMP, BNP, CBC, [id number], PTT, PT #### [address] Platelets (Bld) [#/Vol] 185 10*3/uL Normal 150-450 [facility] Comment on above: Performed By: #### M G, HS TROP, DDIMER, TSH3, CMP, BNP, CBC, [id number], PTT, PT #### [address] RBC (Bld) [#/Vol] 3.26 10*6/uL Low 3.90-5.60 [facility] Comment on above: Performed By: #### M G, HS TROP, DDIMER, TSH3, CMP, BNP, CBC, [id number], PTT, PT #### [address] WBC (Bld) [#/Vol] 10.4 10*3/uL Normal 4.1-10.5 [facility] Comment on above: Performed By: #### M G, HS TROP, DDIMER, TSH3, CMP, BNP, CBC, [id number], PTT, PT #### [address] White Blood Count 10.4 [CFU]/mL Normal 4.1-10.5 [facility] Comment on above: Performed By: #### M G, HS TROP, DDIMER, TSH3, CMP, BNP, CBC, [id number], PTT, PT #### [facility] [address] [place] [id number] [facility] echo transthoracicon [facility] echo transthoracic [facility] [place] [address] [place] [address] Echocardiogram Signed Patient: Jatin Koch II MR#: [id number] : 1960 Acct:[id number] Age/Sex: 64 / M ADM Date: 01/15/25 Loc: Room: [address] [place] [address] Type: ADM IN Attending Dr: Hayes Olivarez DO Ordering Provider: Librado Sarkar MD Date of Service: 01/16/2511/05/1046 [facility] echo transthoracic: afib vs SR Copies to: [...] Elma Jackson MD 01/16/25 1526 Normal [facility] Lipid Panelon 01-16-2025 Cholesterol [Mass/Vol] 123 mg/dL Low 140-200 Th e [facility] Comment on above: Result Comment: Chol less than 200 mg/dl low risk Chol 201-239 mg/dl borderline risk Chol 240 mg/dl and greater high risk Performed By: #### M G, HS TROP, DDIMER, TSH3, CMP, BNP, CBC, [id number], PTT, PT #### [facility] [address] Cholesterol in HDL [Mass/Vol] 30 mg/dL Normal 23-92 [facility] Comment on above: Result Comment: HDL CHOL ATP-III CLASSIFICATION Cardiovascular Risk HDL > or equal to 60 mg/dL LOW HDL < 40 mg/dL HIGH Performed By: #### M G, HS TROP, DDIMER, TSH3, CMP, BNP, CBC, [id number], PTT, PT #### [address] Cholesterol.total/Kareen sterol in HDL [Mass ratio] 4.1 {ratio} Normal <5.0 [facility] Comment on above: Result Comment: PERF ORMED BY: [place] [address] PATHOLOGIST MARKETING SENIOR RECRUITER KELVIN HOLMAN M.D. Performed By: #### M G, HS TROP, DDIMER, TSH3, CMP, BNP, CBC, [id number], PTT, PT #### [address] LDL Cholesterol,Calculated 76 mg/dL Normal 0-100 [facility] Comment on above: Result Comment: LDL ATP III CLASSIFICATION LDL less than 100 mg/dL Optimal LDL 100-129 mg/dL Near or above optimal LDL 130-159 mg/dL Borderline high LDL 160-189 mg/dL High LDL greater than 189 mg/dL Very high Performed By: #### M G, HS TROP, DDIMER, TSH3, CMP, BNP, CBC, [id number], PTT, PT #### [address] Triglyceride w/Reflex 87 mg/dL Normal 0-149 [facility] Comment on above: Result Comment: TRIG ATP III CLASSIFICATION TRIG less than 150 mg/dL Normal TRIG 150-199 mg/dL Borderline high TRIG 200-500 mg/dL High TRIG greater than 500 mg/dL Very high Standard traceable to the Center for Disease Conrtrol and Prevention (CDC) test method. Performed By: #### M G, HS TROP, DDIMER, TSH3, CMP, BNP, CBC, [id number], PTT, PT #### [address] VLDL CHOLESTEROL 17 mg/dL Normal [facility] Comment on above: Performed By: #### M G, HS TROP, DDIMER, TSH3, CMP, BNP, CBC, [id number], PTT, PT #### [address] Magnesiumon 01-16-2025 Magnesium [Mass/Vol] 1.7 mg/dL Low 1.9-2.7 [facility] Comment on above: Performed By: #### M G, HS TROP, DDIMER, TSH3, CMP, BNP, CBC, [id number], PTT, PT #### [address] Anisocytosis [Presence] in B lood by Light microscopyOrdered By: Angelica Lawler on 01-15-2025 Anisocytosis Ql (Bld) Slight Normal [facility] Comment on above: Order Comment: PLATE LET CLUMPS/ NOTIFIED ARTIE Performed By: #### M G, HS TROP, DDIMER, TSH3, CMP, BNP, CBC, [id number], PTT, PT #### [address] BNP ser/plasOrdered By: Mikel Lawler on 01-15-2025 Natriuretic peptide B (Bld) [Mass/Vol] 50.0 pg/mL Normal 5-100 [facility] Comment on above: Result Comment: PERF ORMED BY: [place] [address] PATHOLOGIST MARKETING SENIOR RECRUITER KELVIN HOLMAN M.D. Performed By: #### M G, HS TROP, DDIMER, TSH3, CMP, BNP, CBC, [id number], PTT, PT #### [address] Basic Metabolic Panelon 08-0 Anion gap [Moles/Vol] Not performed Normal 6.0-15.0 [facility] Comment on above: Performed By: #### M G, HS TROP, DDIMER, TSH3, CMP, BNP, CBC, [id number], PTT, PT #### [address] Creatinine Clr Calc Pharmacy 83.35 Normal [facility] Comment on above: Performed By: #### M G, HS TROP, DDIMER, TSH3, CMP, BNP, CBC, [id number], PTT, PT #### [address] GFR/1.73 sq M.predicted MDRD (S/P/Bld) [Vol rate/Area] mL/min/{1.73_m2} Normal [facility] Comment on above: Performed By: #### M G, HS TROP, DDIMER, TSH3, CMP, BNP, CBC, [id number], PTT, PT #### [address] Potassium Normal 3.5-5.1 [facility] Comment on above: Result Comment: Spec imen hemolyzed, redraw requested Performed By: #### M G, HS TROP, DDIMER, TSH3, CMP, BNP, CBC, [id number], PTT, PT #### [address] Basophils [#/volume] in Bloo d by Automated countOrdered By: Angelica Lawler on 01-15-2025 Basophils (Bld) [#/Vol] 0.1 10*3/uL Normal 0.0-0.2 [facility] Comment on above: Order Comment: PLATE LET CLUMPS/ NOTIFIED ARTIE Performed By: #### M G, HS TROP, DDIMER, TSH3, CMP, BNP, CBC, [id number], PTT, PT #### [address] Basophils/100 leukocytes in Blood by Automated countOrdered By: Angelica Lawler on 01-15-2025 Basophils/100 WBC (Bld) 0.3 % Normal . [facility] Comment on above: Order Comment: PLATE LET CLUMPS/ NOTIFIED ARTIE Performed By: #### M G, HS TROP, DDIMER, TSH3, CMP, BNP, CBC, [id number], PTT, PT #### [address] Blood Cultureon 01-15-2025 Bacteria identified Cx Nom (Bld) NO GROWTH 5 DAYS PERFORMED BY: [facility] [address] [place] [address] PATHOLOGIST MARKETING SENIOR RECRUITER KELVIN HOLMAN M.D. Normal [facility] Comment on above: Performed By: #### M G, HS TROP, DDIMER, TSH3, CMP, BNP, CBC, [id number], PTT, PT #### [facility] [address] Bacteria identified Cx Nom (Bld) NO GROWTH 5 DAYS PERFORMED BY: [facility] [address] [place] [address] PATHOLOGIST MARKETING SENIOR RECRUITER KELVIN HOLMAN M.D. Normal [facility] Comment on above: Performed By: #### M G, HS TROP, DDIMER, TSH3, CMP, BNP, CBC, [id number], PTT, PT #### [facility] [address] CBC W Auto Differential pane l (Bld)on 01-15-2025 Anisocytosis Ql (Bld) Present Normal [facility] Comment on above: Order Comment: Speci men Type: BLOOD SPECIMENOrdering Facility: [facility] Address: [address] [place] [address] Performed By: #### 5 7021-8 ####[facility] LABCLIA [id number] [address] LABCLIA [id number] [place] [address] [place] Basophils (Bld) [#/Vol] 0.00 10*3/uL Normal <0.11 [facility] Comment on above: Order Comment: Speci men Type: BLOOD SPECIMENOrdering Facility: [facility] Address: [address] [place] [address] Performed By: #### 5 7021-8 ####[facility] LABCLIA [id number] [address] LABCLIA [id number] [place] [address] [place] Basophils/100 WBC (Bld) 0.0 % Normal [facility] Comment on above: Order Comment: Speci men Type: BLOOD SPECIMENOrdering Facility: [facility] Address: [address] [place] [address] Performed By: #### 5 7021-8 ####[facility] LABCLIA [id number] [address] LABCLIA [id number] [place] [address] [place] Differential cell count method Nom (Bld) Manual Normal [facility] Comment on above: Order Comment: Speci men Type: BLOOD SPECIMENOrdering Facility: [facility] Address: [address] [place] [address] Performed By: #### 5 7021-8 ####[facility] LABCLIA [id number] [address] LABCLIA [id number] [place] [address] [place] Eosinophils (Bld) [#/Vol] 0.19 10*3/uL Normal <0.46 [facility] Comment on above: Order Comment: Speci men Type: BLOOD SPECIMENOrdering Facility: [facility] Address: [address] [place] [address] Performed By: #### 5 7021-8 ####[facility] LABCLIA [id number] [address] LABCLIA [id number] [place] [address] [place] Eosinophils/100 WBC (Bld) 0.9 % Normal [facility] Comment on above: Order Comment: Speci men Type: BLOOD SPECIMENOrdering Facility: [facility] Address: [address] [place] [address] Performed By: #### 5 7021-8 ####[facility] LABCLIA [id number] [place] [id number] LABCLIA [id number] [place] [id number] [place] Erythrocyte distribution width (RBC) [Ratio] 15.2 % High 11.5-15.0 [facility] Comment on above: Order Comment: Speci men Type: BLOOD SPECIMENOrdering Facility: [facility] Address: [address] [place] [address] Performed By: #### 5 7021-8 ####[facility] LABCLIA [id number] [address] LABCLIA [id number] [place] [address] [place] Hematocrit (Bld) [Volume fraction] 33.7 % Low 39.0-51.0 [facility] Comment on above: Order Comment: Speci men Type: BLOOD SPECIMENOrdering Facility: [facility] Address: [address] [place] [address] Performed By: #### 5 7021-8 ####[facility] LABCLIA [id number] [place] [id number] LABCLIA [id number] [place] [id number] [place] Hemoglobin (Bld) [Mass/Vol] 10.5 g/dL Low 13.0-17.0 [facility] Comment on above: Order Comment: Speci men Type: BLOOD SPECIMENOrdering Facility: [facility] Address: [address] [place], [place] [id number] Performed By: #### 5 7021-8 ####[facility] LABCLIA [id number] [address] LABCLIA [id number] [place] [id number] [place] Lymphocytes (Bld) [#/Vol] 1.83 10*3/uL Normal 1.00-4.00 [facility] Comment on above: Order Comment: Speci men Type: BLOOD SPECIMENOrdering Facility: [facility] Address: [address] [place] [address] Performed By: #### 5 7021-8 ####[facility] LABCLIA [id number] [address] LABCLIA [id number] [place] [address] [place] Lymphocytes/100 WBC (Bld) 8.7 % Normal [facility] Comment on above: Order Comment: Speci men Type: BLOOD SPECIMENOrdering Facility: [facility] Address: [address] [place] [address] Performed By: #### 5 7021-8 ####[facility] LABCLIA [id number] [address] LABCLIA [id number] [place] [address] [place] MCH (RBC) [Entitic mass] 26.0 pg Normal 26.0-34.0 [facility] Comment on above: Order Comment: Speci men Type: BLOOD SPECIMENOrdering Facility: [facility] Address: [address] [place] [address] Performed By: #### 5 7021-8 ####[facility] LABCLIA [id number] [address] LABCLIA [id number] [place] [address] [place] MCHC (RBC) [Mass/Vol] 31.2 g/dL Normal 30.5-36.0 [facility] Comment on above: Order Comment: Speci men Type: BLOOD SPECIMENOrdering Facility: [facility] Address: [address] [place] [address] Performed By: #### 5 7021-8 ####[facility] LABCLIA [id number] [place] [id number] LABCLIA [id number] [place] [address] [place] MCV (RBC) [Entitic vol] 83.4 fL Normal 80.0-100.0 [facility] Comment on above: Order Comment: Speci men Type: BLOOD SPECIMENOrdering Facility: [facility] Address: [address] [place] [address] Performed By: #### 5 7021-8 ####[facility] LABCLIA [id number] [address] LABCLIA [id number] [place] [address] [place] Monocytes (Bld) [#/Vol] 0.00 10*3/uL Normal <0.87 [facility] Comment on above: Order Comment: Speci men Type: BLOOD SPECIMENOrdering Facility: [facility] Address: [address] [place] [address] Performed By: #### 5 7021-8 ####[facility] LABCLIA [id number] [place] [id number] LABCLIA [id number] [place] [address] [place] Monocytes/100 WBC (Bld) 0.0 % Normal [facility] Comment on above: Order Comment: Speci men Type: BLOOD SPECIMENOrdering Facility: [facility] Address: [address] [place] [address] Performed By: #### 5 7021-8 ####[facility] LABCLIA [id number] [address] LABCLIA [id number] [place] [id number] [place] Neutrophils (Bld) [#/Vol] 19.02 10*3/uL High 1.45-7.50 [facility] Comment on above: Order Comment: Speci men Type: BLOOD SPECIMENOrdering Facility: [facility] Address: [address] [place] [address] Performed By: #### 5 7021-8 ####[facility] LABCLIA [id number] [address] LABCLIA [id number] [place] [address] [place] Neutrophils/100 WBC (Bld) 90.4 % Normal [facility] Comment on above: Order Comment: Speci men Type: BLOOD SPECIMENOrdering Facility: [facility] Address: [address] [place] [address] Performed By: #### 5 7021-8 ####[facility] LABCLIA [id number] [address] LABCLIA [id number] [place] [address] [place] Nucleated RBC (Bld) [#/Vol] 0.19 10*3/uL High <0.01 [facility] Comment on above: Order Comment: Speci men Type: BLOOD SPECIMENOrdering Facility: [facility] Address: [address] [place] [address] Performed By: #### 5 7021-8 ####[facility] LABCLIA [id number] [address] LABCLIA [id number] [place] [address] [place] Nucleated RBC/100 WBC (Bld) [Ratio] 0.9 /100 WBC Normal [facility] Comment on above: Order Comment: Speci men Type: BLOOD SPECIMENOrdering Facility: [facility] Address: [address] [place] [address] Performed By: #### 5 7021-8 ####[facility] LABCLIA [id number] [facility], [place] [address]IBRCWVLDUMER[facility] LABCLIA [id number] [facility] [address] [place] [address] [place] Ovalocytes LM Ql (Bld) Few Normal [facility] Comment on above: Order Comment: Speci men Type: BLOOD SPECIMENOrdering Facility: [facility] Address: [address] [place] [address] Performed By: #### 5 7021-8 ####[facility] LABCLIA [id number] [facility]ERDRON[address] [facility] [address] LABCLIA [id number] [address] [address] [place] Platelet mean volume (Bld) [Entitic vol] 9.1 fL Normal 9.0-12.7 [facility] Comment on above: Order Comment: Speci men Type: BLOOD SPECIMENOrdering Facility: [facility] Address: [address] [place] [address] Performed By: #### 5 7021-8 ####[facility] LABCLIA [id number] [place] [id number] LABCLIA [id number] [address] [place] [address] [place] Platelets (Bld) [#/Vol] 286 10*3/uL Normal 150-400 [facility] Comment on above: Order Comment: Speci men Type: BLOOD SPECIMENOrdering Facility: [facility] Address: [address] [place] [address] Performed By: #### 5 7021-8 ####[facility] LABCLIA [id number] [place] [id number] LABCLIA [id number] [address] [place] [address] [place] Platelets Estimate (Bld) [#/Vol] Adequate Normal [facility] Comment on above: Order Comment: Speci men Type: BLOOD SPECIMENOrdering Facility: [facility] Address: [address] [place], [place] [address] Performed By: #### 5 7021-8 ####[facility] LABCLIA [id number] [place], [place] [address]FZONQNPKWMERCY [facility] LABCLIA [id number] [address] [place] [address] [place] RBC (Bld) [#/Vol] 4.04 10*6/uL Low 4.20-6.00 [facility] Comment on above: Order Comment: Speci men Type: BLOOD SPECIMENOrdering Facility: [facility] Address: [address] [place] [address] Performed By: #### 5 7021-8 ####[facility] LABCLIA [id number] [place] [id number] LABCLIA [id number] [address], [facility] [place] RBC FRAGMENTS Few Abnormal None Seen [facility] Comment on above: Order Comment: Speci men Type: BLOOD SPECIMENOrdering Facility: [facility] Address: [address] [place] [address] Performed By: #### 5 7021-8 ####[facility] LABCLIA [id number] [place] [id number] LABCLIA [id number] [address] [place] [address] [place] RED CELL MORPH Reviewed: see result s of individual morphologies Normal [facility] Comment on above: Order Comment: Speci men Type: BLOOD SPECIMENOrdering Facility: [facility] Address: [address] [place] [address] Performed By: #### 5 7021-8 ####[facility] LABCLIA [id number] [place] [id number] LABCLIA [id number] [address] [address] [place] WBC (Bld) [#/Vol] 21.04 10*3/uL High 3.70-11.00 [facility] Comment on above: Order Comment: Speci men Type: BLOOD SPECIMENOrdering Facility: [facility] Address: [address] [place] [address] Performed By: #### 5 7021-8 ####[facility] LABCLIA [id number] [place], [place] [address]IVFFSTQUGMERCY [facility] ST[facility] LABCLIA [id number] [place] [address] [place] CNOVSPon 01-15-2025 CNOVSP Normal [facility] CNPNon 01-15-2025 CNPN Normal [facility] CT angio chest PE protocolon 01-15-2025 CT angio chest PE protocol [facility] [address] [place] [address] CT Scan Report Signed Patient: Jatin Koch II MR#: [id number] : 1960 Acct:[id number] Age/Sex: 64 / M ADM Date: 01/15/25 Loc: ER Room: Type: [facility] ER Attending Dr: Copies to: Angelica [...] Lainez M.D. 01/15/2025 11:33 AM Dictation Location: [place] [address] Transcribed By: [facility] 01/15/25 1133 Dictated By: Jose Antonio Lainez II, MD 01/15/25 1124 Signed By: 01/15/25 1133 Normal [facility] Calcium [Mass/volume] in Ser um or PlasmaOrdered By: Angelica Lawler on 01-15-2025 Calcium [Mass/Vol] 8.5 mg/dL Low 8.6-10.3 [facility] Comment on above: Performed By: #### M G, HS TROP, DDIMER, TSH3, CMP, BNP, CBC, [id number], PTT, PT #### [facility] [address] [place] [id number] [facility] Carbon dioxide, total [Moles /volume] in Serum or PlasmaOrdered By: Angelica Lawler on 01-15-2025 CO2 [Moles/Vol] 21.6 mmol/L Normal 21.0-31.0 [facility] Comment on above: Performed By: #### M G, HS TROP, DDIMER, TSH3, CMP, BNP, CBC, [id number], PTT, PT #### [facility] [address] [place] [address] [place] Chloride [Moles/volume] in S karishma or PlasmaOrdered By: Angelica Lawler on 01-15-2025 Chloride [Moles/Vol] 99 mmol/L Normal 98-107 [facility] Comment on above: Performed By: #### M G, HS TROP, DDIMER, TSH3, CMP, BNP, CBC, [id number], PTT, PT #### [facility] [address] [place] [address] [place] Comprehensive metabolic 2000 panelon 01-15-2025 Albumin [Mass/Vol] 3.7 g/dL Low 3.9-4.9 [facility] Comment on above: Order Comment: Speci men Type: BLOOD SPECIMENOrdering Facility: [facility] Address: [address] [place] [address] Performed By: #### 2 4323-8, 04028-6 ####[facility] LABCLIA [id number] [place] [address] ALP [Catalytic activity/Vol] 59 U/L Normal 38-113 [facility] Comment on above: Order Comment: Speci men Type: BLOOD SPECIMENOrdering Facility: [facility] Address: [address] [place] [address] Performed By: #### 2 4323-8, ####[facility] LABCLIA [id number] [place] [address] ALT [Catalytic activity/Vol] 10 U/L Normal 10-54 [facility] Comment on above: Order Comment: Speci men Type: BLOOD SPECIMENOrdering Facility: [facility] Address: [address] [place] [address] Performed By: #### 2 4323-8, ####[facility] LABCLIA [id number] [place] [address] Anion gap [Moles/Vol] 15 mmol/L Normal 8-15 [facility] Comment on above: Order Comment: Speci men Type: BLOOD SPECIMENOrdering Facility: [facility] Address: [address] [place] [address] Performed By: #### 2 4323-8, ####[facility] LABCLIA [id number] [place] [address] AST [Catalytic activity/Vol] 9 U/L Low 14-40 [facility] Comment on above: Order Comment: Speci men Type: BLOOD SPECIMENOrdering Facility: [facility] Address: [address] [place] [address] Performed By: #### 2 4323-8, ####[facility] LABCLIA [id number] [place] [address] Bilirubin [Mass/Vol] 0.6 mg/dL Normal 0.2-1.3 [facility] Comment on above: Order Comment: Speci men Type: BLOOD SPECIMENOrdering Facility: [facility] Address: [address] [place] [address] Performed By: #### 2 4323-8, ####[facility] LABCLIA [id number] [place] [address] Calcium [Mass/Vol] 8.8 mg/dL Normal 8.5-10.2 [facility] Comment on above: Order Comment: Speci men Type: BLOOD SPECIMENOrdering Facility: [facility] Address: [address] [place], [place] [address] Performed By: #### 2 4323-8, ####[facility] LABCLIA [id number] [place] [address] Chloride [Moles/Vol] 97 mmol/L Low 98-107 [facility] Comment on above: Order Comment: Speci men Type: BLOOD SPECIMENOrdering Facility: [facility] Address: [address] [place], [place] [address] Performed By: #### 2 4323-8, ####[facility] LABCLIA [id number] [place] [address] CO2 [Moles/Vol] 19 mmol/L Low 22-30 [facility] Comment on above: Order Comment: Speci men Type: BLOOD SPECIMENOrdering Facility: [facility] Address: [address] [place], [place] [address] Performed By: #### 2 4323-8, ####[facility] LABCLIA [id number] [place] [address] Creatinine [Mass/Vol] 0.90 mg/dL Normal 0.73-1.22 [facility] Comment on above: Order Comment: Speci men Type: BLOOD SPECIMENOrdering Facility: [facility] Address: [address] [place], [place] [address] Performed By: #### 2 4323-8, ####[facility] LABCLIA [id number] [place] [address] eGFRcr SerPlBld CKD-EPI 2020 96 mL/min/1.73m??? Normal >=60 [facility] Comment on above: Order Comment: Ange hull Type: BLOOD SPECIMENOrdering Facility: [facility] Address: [address] [place] [address] Result Comment: Carly mated Glomerular Filtration Rate [...] actual GFR. Performed By: #### 2 4323-8, ####[facility] LABCLIA [id number] [place] [address] Glucose [Mass/Vol] 117 mg/dL High 74-99 [facility] Comment on above: Order Comment: Specamarilys hull Type: BLOOD SPECIMENOrdering Facility: [facility] Address: [address] [place] [address] Result Comment: The [place] Diabetes Association (ADA) provides guidance for cutoff [...] Standards of Medical Care in Diabetes 2016, [place] Diabetes Association. Diabetes Care. 2016.39(Suppl 1). Performed By: #### 2 4323-8, ####[facility] LABCLIA [id number] [place] [address] Potassium [Moles/Vol] 4.1 mmol/L Normal 3.7-5.1 [facility] Comment on above: Order Comment: Speci men Type: BLOOD SPECIMENOrdering Facility: [facility] Address: [address] [place] [address] Performed By: #### 2 4323-8, ####[facility] LABCLIA [id number] [place] [address] Protein [Mass/Vol] 7.5 g/dL Normal 6.3-8.0 [facility] Comment on above: Order Comment: Speci men Type: BLOOD SPECIMENOrdering Facility: [facility] Address: [address] [place] [address] Performed By: #### 2 4323-8, ####[facility] LABCLIA [id number] [place] [address] Sodium [Moles/Vol] 131 mmol/L Low 136-144 [facility] Comment on above: Order Comment: Speci men Type: BLOOD SPECIMENOrdering Facility: [facility] Address: [address] [place] [address] Performed By: #### 2 4323-8, ####[facility] LABCLIA [id number] [place] [address] Urea nitrogen [Mass/Vol] 22 mg/dL Normal 9-24 [facility] Comment on above: Order Comment: Speci men Type: BLOOD SPECIMENOrdering Facility: [facility] Address: [address] [place] [address] Performed By: #### 2 4323-8, ####[facility] LABCLIA [id number] [place] [address] Creatine kinase [Enzymatic a ctivity/volume] in Serum or PlasmaOrdered By: Angelica Lawler on 01-15-2025 CK [Catalytic activity/Vol] 23 U/L Low 30-223 [facility] Comment on above: Performed By: #### M G, HS TROP, DDIMER, TSH3, CMP, BNP, CBC, [id number], PTT, PT #### [facility] [address] [place] [id number] [facility] Creatinine [Mass/volume] in Serum or PlasmaOrdered By: Angelica Lawler on 01-15-2025 Creatinine [Mass/Vol] 0.95 mg/dL Normal 0.70-1.30 [facility] Comment on above: Performed By: #### M G, HS TROP, DDIMER, TSH3, CMP, BNP, CBC, [id number], PTT, PT #### [facility] [address] [place] [address] [facility] ECG 12 lead ECGon 01-15-2025 ECG 12 lead ECG [facility] [place] [address] [place] [address] Electrocardiograph Report Signed Patient: Jatin Koch II MR#: [id number] : 1960 Acct:[id number] Age/Sex: 64 / M ADM Date: 01/15/25 Loc: Room: [address] [place] [address] Type: ADM IN Attending Dr: Hayes Olivarez [...] 13:48, Atrial fibrillation has replaced Sinus rhythm Ycmox-Ypkfigqoc-Rpxbf is no longer present Confirmed by ANGELICA LAWLER DO ([id number]) on 01/15/2025 4:18:40 PM Referred By: Electronically Signed By: ANGELICA LAWLER DO Transcribed By: MUS Signed By Angelica Lawler DO 1618 Normal [facility] Eosinophils [#/volume] in Bl ood by Automated countOrdered By: Angelica Lawler on 01-15-2025 Eosinophils (Bld) [#/Vol] 0.1 10*3/uL Normal 0.0-0.45 [facility] Comment on above: Order Comment: PLATE LET CLUMPS/ NOTIFIED ARTIE Performed By: #### M G, HS TROP, DDIMER, TSH3, CMP, BNP, CBC, [id number], PTT, PT #### [facility] [address] Eosinophils/100 leukocytes i n Blood by Automated countOrdered By: Angelica Lawler on 01-15-2025 Eosinophils/100 WBC (Bld) 0.7 % Normal . [facility] Comment on above: Order Comment: PLATE LET CLUMPS/ NOTIFIED ARTIE Performed By: #### M G, HS TROP, DDIMER, TSH3, CMP, BNP, CBC, [id number], PTT, PT #### [facility] [address] Erythrocyte distribution wid th [Ratio] by Automated countOrdered By: Angelica Lawler on 01-15-2025 Erythrocyte distribution width (RBC) [Ratio] 16.5 % High 12.0-14.8 [facility] Comment on above: Order Comment: PLATE LET CLUMPS/ NOTIFIED ARTIE Performed By: #### M G, HS TROP, DDIMER, TSH3, CMP, BNP, CBC, [id number], PTT, PT #### [facility] [address] Erythrocyte morphology findi ng [Identifier] in BloodOrdered By: Angelica Lawler on 01-15-2025 RBC morphology finding Nom (Bld) N/A [facility] Erythrocytes [#/volume] in B lood by Automated countOrdered By: Angelica Lawler on 01-15-2025 RBC (Bld) [#/Vol] 3.60 10*6/uL Low 3.90-5.60 [facility] Comment on above: Order Comment: PLATE LET CLUMPS/ NOTIFIED ARTIE Performed By: #### M G, HS TROP, DDIMER, TSH3, CMP, BNP, CBC, [id number], PTT, PT #### [facility] [address] [place] [address] [place] Glucose [Mass/volume] in Ser um or PlasmaOrdered By: Angelica Lawler on 01-15-2025 Glucose [Mass/Vol] 72 mg/dL Normal 70-100 [facility] Comment on above: ADA recommended refe rence rangeRandom Glucose Reference Range is dependent on time and content of last meal. Glucose of more than 200 mg/dL in a nonstressed, ambulatory subject supports the diagnosis of Diabetes Mellitus. Result Comment: [place] om Glucose Reference Range is dependent on time and content of last meal. Glucose of more than 200 mg/dL in a nonstressed, ambulatory subject supports the diagnosis of Diabetes Mellitus. ADA recommended reference range Performed By: #### M G, HS TROP, DDIMER, TSH3, CMP, BNP, CBC, [id number], PTT, PT #### [facility] [address] [place] [id number] [place] Hematocrit [Volume Fraction] of Blood by Automated countOrdered By: Angelica Lawler on 01-15-2025 Hematocrit (Bld) [Volume fraction] 28.9 % Low 38.8-50.0 [facility] Comment on above: Order Comment: PLATE LET CLUMPS/ NOTIFIED ARTIE Performed By: #### M G, HS TROP, DDIMER, TSH3, CMP, BNP, CBC, [id number], PTT, PT #### [facility] [address] [place] [id number] [place] Hemoglobin [Mass/volume] in BloodOrdered By: Angelica Lawler on 01-15-2025 Hemoglobin (Bld) [Mass/Vol] 9.4 g/dL Low 13.0-17.0 [facility] Comment on above: Order Comment: PLATE LET CLUMPS/ NOTIFIED ARTIE Performed By: #### M G, HS TROP, DDIMER, TSH3, CMP, BNP, CBC, [id number], PTT, PT #### [facility] [address] [place] [address] [place] INR in Platelet poor plasma by Coagulation assayOrdered By: Angelica Lawler on 01-15-2025 INR Coag (PPP) [Relative time] 1.4 {INR} Normal [facility] Comment on above: INR Therapeutic Rang e [...] heart valves: 3 - 4.5 PERFORMED BY: [place] [address] PATHOLOGIST MARKETING SENIOR RECRUITER KELVIN HOLMAN M.D. Performed By: #### M G, HS TROP, DDIMER, TSH3, CMP, BNP, CBC, [id number], PTT, PT #### [facility] [address] [place] [address] Lactate [Moles/volume] in Se rum or PlasmaOrdered By: Angelica Lawler on 01-15-2025 Lactate [Moles/Vol] 0.8 mmol/L Normal 0.5-1.9 [facility] Comment on above: Lactic Acid referenc e range has been updated to 0.5 1.9 mmol/L and the critical range of 2.0 or greater. Result Comment: Lact ic Acid reference range has been updated to 0.5 ? 1.9 mmol/L and the critical range of 2.0 or greater. PERFORMED BY: [address] [address] PATHOLOGIST MARKETING SENIOR RECRUITER KELVIN HOLMAN M.D. Performed By: #### M G, HS TROP, DDIMER, TSH3, CMP, BNP, CBC, [id number], PTT, PT #### [facility] [address] [place] [address] Leukocytes [#/volume] correc abe for nucleated erythrocytes in Blood by Automated counOrdered By: Angelica Lawler on 01-15-2025 WBC corrected for nucl RBC Auto (Bld) [#/Vol] 18.0 10*3/uL High 4.1-10.5 [facility] Leukocytes [#/volume] in Blo od by Automated countOrdered By: Angelica Lawler on 01-15-2025 WBC (Bld) [#/Vol] 18.0 10*3/uL High 4.1-10.5 [facility] Comment on above: Order Comment: PLATE LET CLUMPS/ NOTIFIED ARTIE Performed By: #### M G, HS TROP, DDIMER, TSH3, CMP, BNP, CBC, [id number], PTT, PT #### [facility] [address] [place] [address] Lymphocytes [#/volume] in Bl ood by Automated countOrdered By: Angelica Lawler on 01-15-2025 Lymphocytes (Bld) [#/Vol] 0.7 10*3/uL Low 1.00-4.8 [facility] Comment on above: Order Comment: PLATE LET CLUMPS/ NOTIFIED ARTIE Performed By: #### M G, HS TROP, DDIMER, TSH3, CMP, BNP, CBC, [id number], PTT, PT #### [facility] [address] [place] [address] Lymphocytes/100 leukocytes i n Blood by Automated countOrdered By: Angelica Lawler on 01-15-2025 Lymphocytes/100 WBC (Bld) 3.8 % Normal . [facility] Comment on above: Order Comment: PLATE LET CLUMPS/ NOTIFIED ARTIE Performed By: #### M G, HS TROP, DDIMER, TSH3, CMP, BNP, CBC, [id number], PTT, PT #### [address] MCH [Entitic mass] by Automa abe countOrdered By: Angelica Lawler on 01-15-2025 MCH (RBC) [Entitic mass] 26.2 pg Low 27.5-35.2 [facility] Comment on above: Order Comment: PLATE LET CLUMPS/ NOTIFIED ARTIE Performed By: #### M G, HS TROP, DDIMER, TSH3, CMP, BNP, CBC, [id number], PTT, PT #### [facility] [address] [place] [address] [facility] MCHC Auto (RBC) [Mass/Vol]Or dered By: Angelica Lawler on 01-15-2025 MCHC (RBC) [Mass/Vol] 32.6 g/dL 32.5-35.6 [facility] MCV [Entitic volume] by Auto mated countOrdered By: Angelica Lawler on 01-15-2025 MCV (RBC) [Entitic vol] 80.3 fL Low 83.5-101 [facility] Comment on above: Order Comment: PLATE LET CLUMPS/ NOTIFIED ARTIE Performed By: #### M G, HS TROP, DDIMER, TSH3, CMP, BNP, CBC, [id number], PTT, PT #### [facility] [address] [place] [address] [facility] Magnesiumon 01-15-2025 Magnesium Normal 1.9-2.7 [facility] Comment on above: Result Comment: Spec imen hemolyzed, redraw requested PERFORMED BY: [place] [address] PATHOLOGIST MARKETING SENIOR RECRUITER KELVIN HOLMAN M.D. Performed By: #### M G, HS TROP, DDIMER, TSH3, CMP, BNP, CBC, [id number], PTT, PT #### [facility] [address] [place] [address] [facility] Magnesium SerPl-mCncon 01-15 Magnesium [Mass/Vol] 1.4 mg/dL Low 1.7-2.3 [facility] Comment on above: Order Comment: Speci men Type: BLOOD SPECIMENOrdering Facility: [facility] Address: [address] [place] [address] Performed By: #### 2 4323-8, 33465-8 ####[facility] LABCLIA [id number] [place] [address] Magnesium [Mass/volume] in S karishma or PlasmaOrdered By: Angelica Lawler on 01-15-2025 Magnesium [Mass/Vol] 1.4 mg/dL Low 1.9-2.7 [facility] Comment on above: Order Comment: 1ST S pecimen hemolyzed, redraw requested Result Comment: PERF ORMED BY: [place] [address] PATHOLOGIST MARKETING SENIOR RECRUITER KELVIN HOLMAN M.D. Performed By: #### M G, HS TROP, DDIMER, TSH3, CMP, BNP, CBC, [id number], PTT, PT #### [facility] [address] [place] [address] [place] Microcytes LM Ql (Bld)Ordere d By: Angelica Lawler on 01-15-2025 Microcytes Ql (Bld) Slight [facility] Monocyte distribution width [Entitic volume] in Blood by AutomatedOrdered By: Angelica Lawler on 01-15-2025 Monocyte distribution width Auto (Bld) [Entitic vol] Test not performed % 0.00-20.00 [facility] [place] Comment on above: Unable to calculate MDW because the Absolute Monocyte Count is <0.8. Monocytes [#/volume] in Bloo d by Automated countOrdered By: Angelica Lawler on 01-15-2025 Monocytes (Bld) [#/Vol] 0.1 10*3/uL Normal 0.0-0.8 [facility] [place] Comment on above: Order Comment: PLATE LET CLUMPS/ NOTIFIED ARTIE Performed By: #### M G, HS TROP, DDIMER, TSH3, CMP, BNP, CBC, [id number], PTT, PT #### [facility] [address] [place] [address] [place] Monocytes/100 leukocytes in Blood by Automated countOrdered By: Angelica Lawler on 01-15-2025 Monocytes/100 WBC (Bld) 0.3 % Normal . [facility] Comment on above: Order Comment: PLATE LET CLUMPS/ NOTIFIED ARTIE Performed By: #### M G, HS TROP, DDIMER, TSH3, CMP, BNP, CBC, [id number], PTT, PT #### [facility] [address] [place] [address] [place] Neutrophils [#/volume] in Bl ood by Automated countOrdered By: Angelica Lawler on 01-15-2025 Neutrophils (Bld) [#/Vol] 16.6 10*3/uL High 1.8-7.7 [facility] [place] Comment on above: Order Comment: PLATE LET CLUMPS/ NOTIFIED ARTIE Performed By: #### M G, HS TROP, DDIMER, TSH3, CMP, BNP, CBC, [id number], PTT, PT #### [facility] [address] [place] [address] [place] Neutrophils/100 leukocytes i n Blood by Automated countOrdered By: Angelica Lawler on 01-15-2025 Neutrophils/100 WBC (Bld) 94.9 % Normal . [facility] [place] Comment on above: Order Comment: PLATE LET CLUMPS/ NOTIFIED ARTIE Performed By: #### M G, HS TROP, DDIMER, TSH3, CMP, BNP, CBC, [id number], PTT, PT #### [facility] [address] No Panel InformationOrdered By: Angelica Lawler on 01-15-2025 Estimated GFR (CKD-EPI) > 60.0 mL/Min [facility] [place] [facility] Creatinine Clearance (Chem 83.35 [facility] [place] Nucleated erythrocytes [Pres ence] in Blood by Automated countOrdered By: Angelica Lawler on 01-15-2025 Nucleated RBC Auto Ql (Bld) 0.0 /100{WBC} 0-0.5 [facility] [place] Platelet adequacy [Presence] in Blood by Light microscopyOrdered By: Angelica Lawler on 01-15-2025 Platelets LM Ql (Bld) Normal Normal [facility] Platelet mean volume [Entiti c volume] in Blood by Automated countOrdered By: Angelica Lawler on 01-15-2025 Platelet mean volume (Bld) [Entitic vol] 7.4 fL Normal 6.6-10.1 [facility] [place] Comment on above: Order Comment: PLATE LET CLUMPS/ NOTIFIED ARTIE Performed By: #### M G, HS TROP, DDIMER, TSH3, CMP, BNP, CBC, [id number], PTT, PT #### [facility] [address] Platelet morphology finding [Identifier] in BloodOrdered By: Angelica Lawler on 01-15-2025 Platelet morphology finding Nom (Bld) Normal Normal [facility] [place] Platelets [#/volume] in Bloo d by Automated countOrdered By: Angelica Lawler on 01-15-2025 Platelets (Bld) [#/Vol] 220 10*3/uL Normal 150-450 [facility] [place] Comment on above: Order Comment: PLATE LET CLUMPS/ NOTIFIED ARTIE Performed By: #### M G, HS TROP, DDIMER, TSH3, CMP, BNP, CBC, [id number], PTT, PT #### [facility] [address] Potassium [Moles/volume] in Serum or PlasmaOrdered By: Angelica Lawler on 01-15-2025 Potassium [Moles/Vol] 4.2 mmol/L Normal 3.5-5.1 [facility] Comment on above: Order Comment: 1ST S pecimen hemolyzed, redraw requested Performed By: #### M G, HS TROP, DDIMER, TSH3, CMP, BNP, CBC, [id number], PTT, PT #### [facility] [address] Prothrombin time (PT)Ordered By: Angelica Lawler on 01-15-2025 PT Coag (PPP) [Time] 15.8 s High 9.0-12.9 [facility] Comment on above: A hematocrit value g reater than 55% may lead to inaccurate results in coagulation testing. Patients having hematocrit values >55% require a special collection tube for coagulation studies. Please contact the laboratory at [phone] for redraw instructions. Result Comment: A he matocrit value greater than 55% may lead to inaccurate results in coagulation testing. Patients having hematocrit values >55% require a special collection tube for coagulation studies. Please contact the laboratory at [phone] for redraw instructions. Performed By: #### M G, HS TROP, DDIMER, TSH3, CMP, BNP, CBC, [id number], PTT, PT #### [address] Scan and CBCon 01-15-2025 Mean Corpuscular HGB Conc 32.6 g/dL Normal 32.5-35.6 [facility] Comment on above: Order Comment: PLATE LET CLUMPS/ NOTIFIED ARTIE Performed By: #### M G, HS TROP, DDIMER, TSH3, CMP, BNP, CBC, [id number], PTT, PT #### [address] Microcytosis Slight Normal [facility] Comment on above: Order Comment: PLATE LET CLUMPS/ NOTIFIED ARTIE Performed By: #### M G, HS TROP, DDIMER, TSH3, CMP, BNP, CBC, [id number], PTT, PT #### [address] Monocyte Distribution Width Not performed Normal 0.00-20.00 [facility] Comment on above: Order Comment: PLATE LET CLUMPS/ NOTIFIED ARTIE Result Comment: Unab le to calculate MDW because the Absolute Monocyte Count is <0.8. Performed By: #### M G, HS TROP, DDIMER, TSH3, CMP, BNP, CBC, [id number], PTT, PT #### [address] NRBC% 0.0 /100{WBC} Normal 0-0.5 [facility] Comment on above: Order Comment: PLATE LET CLUMPS/ NOTIFIED ARTIE Performed By: #### M G, HS TROP, DDIMER, TSH3, CMP, BNP, CBC, [id number], PTT, PT #### [address] Platelet Estimate Normal Normal Normal [facility] Comment on above: Order Comment: PLATE LET CLUMPS/ NOTIFIED ARTIE Performed By: #### M G, HS TROP, DDIMER, TSH3, CMP, BNP, CBC, [id number], PTT, PT #### [facility] [address] Platelet Morphology Normal Normal Normal [facility] Comment on above: Order Comment: PLATE LET CLUMPS/ NOTIFIED ARTIE Result Comment: PERF ORMED BY: [place] [address] PATHOLOGIST MARKETING SENIOR RECRUITER KELVIN HOLMAN M.D. Performed By: #### M G, HS TROP, DDIMER, TSH3, CMP, BNP, CBC, [id number], PTT, PT #### [address] White Blood Count 18.0 [CFU]/mL High 4.1-10.5 [facility] Comment on above: Order Comment: PLATE LET CLUMPS/ NOTIFIED ARTIE Performed By: #### M G, HS TROP, DDIMER, TSH3, CMP, BNP, CBC, [id number], PTT, PT #### [address] Serum or plasma anion gap de terminationOrdered By: Angelica Lawler on 01-15-2025 Anion gap [Moles/Vol] TNP [facility] Comment on above: Test not performed Sodium [Moles/volume] in Ser um or PlasmaOrdered By: Angelica Lawler on 01-15-2025 Sodium [Moles/Vol] 133 mmol/L Low 136-145 [facility] Comment on above: Performed By: #### M G, HS TROP, DDIMER, TSH3, CMP, BNP, CBC, [id number], PTT, PT #### [facility] [address] [place] [address] [place] Troponin I High Sensitivityo n 01-15-2025 Troponin I High Sensitivity 7 Normal 0-20 [facility] Comment on above: Result Comment: The Troponin units of report have been changed to meet the Chest Pain Accreditation requirement, element EC5.M1l2. Troponin units are changed from pg/ml to ng/L. Also, the decimal is removed and results are in whole numbers. PERFORMED BY: [place] [address] PATHOLOGIST MARKETING SENIOR RECRUITER KELVIN HOLMAN M.D. Performed By: #### M G, HS TROP, DDIMER, TSH3, CMP, BNP, CBC, [id number], PTT, PT #### [address] Troponin I High Sensitivity 9 Normal 0-20 [facility] Comment on above: Result Comment: The Troponin units of report have been changed to meet the Chest Pain Accreditation requirement, element EC5.M1l2. Troponin units are changed from pg/ml to ng/L. Also, the decimal is removed and results are in whole numbers. PERFORMED BY: [place] [address] PATHOLOGIST MARKETING SENIOR RECRUITER KELVIN HOLMAN M.D. Performed By: #### M G, HS TROP, DDIMER, TSH3, CMP, BNP, CBC, [id number], PTT, PT #### [address] Troponin I High Sensitivity 7 Normal 0-20 [facility] Comment on above: Result Comment: The Troponin units of report have been changed to meet the Chest Pain Accreditation requirement, element EC5.M1l2. Troponin units are changed from pg/ml to ng/L. Also, the decimal is removed and results are in whole numbers. PERFORMED BY: [place] [address] PATHOLOGIST MARKETING SENIOR RECRUITER KELVIN HOLMAN M.D. Performed By: #### M G, HS TROP, DDIMER, TSH3, CMP, BNP, CBC, [id number], PTT, PT #### [address] Troponin I.cardiac [Mass/vol ume] in Serum or Plasma by Detection limit <= 0.01 ng/mLOrdered By: Angelica Lawler on 01-15-2025 Troponin I.cardiac DL <= 0.01 ng/mL [Mass/Vol] 7 ng/L 0-20 [facility] [place] Comment on above: The Troponin units o f report have been changed to meet the Chest Pain Accreditation requirement, element EC5.M1l2. Troponin units are changed from pg/ml to ng/L. Also, the decimal is removed and results are in whole numbers. Urea nitrogen [Mass/volume] in Serum or PlasmaOrdered By: Angelica Lawler on 01-15-2025 Urea nitrogen [Mass/Vol] 27 mg/dL High 7-25 [facility] [place] Comment on above: Performed By: #### M G, HS TROP, DDIMER, TSH3, CMP, BNP, CBC, [id number], PTT, PT #### [facility] [address] CNNURSEon 01-12-2025 CNNURSE Normal [facility] CNNURSEon 01-11-2025 CNNURSE Normal [facility] CNPNon 01-11-2025 CNPN Normal [facility] CNNURSEon 01-10-2025 CNNURSE Normal [facility] CNOVon 01-10-2025 CNOV Normal [facility] CNNURSEon 01-09-2025 CNNURSE Normal [facility] CNPNon 01-09-2025 CNPN Normal [facility] CBC W Auto Differential pane l (Bld)on 01-08-2025 Basophils (Bld) [#/Vol] 0.05 10*3/uL [facility] Basophils/100 WBC (Bld) 0.3 % [facility] Differential cell count method Nom (Bld) Auto [facility] Eosinophils (Bld) [#/Vol] 0.48 10*3/uL High [facility] Eosinophils/100 WBC (Bld) 3 % [facility] Erythrocyte distribution width (RBC) [Ratio] 14.8 % 11.5 - 15.0 % [facility] Hematocrit (Bld) [Volume fraction] 33 % Low 39.0 - 51.0 % [facility] Hemoglobin (Bld) [Mass/Vol] 10.5 g/dL Low 13.0 - 17.0 g/dL [facility] Immature granulocytes (Bld) [#/Vol] 0.15 10*3/uL High [facility] Immature granulocytes/100 WBC (Bld) 0.9 % [facility] Interpretation and review of laboratory results Abnormal [facility] Lymphocytes (Bld) [#/Vol] 1.83 10*3/uL [facility] Lymphocytes/100 WBC (Bld) 11.5 % [facility] MCH (RBC) [Entitic mass] 26.9 pg 26.0 - 34.0 pg [facility] MCHC (RBC) [Mass/Vol] 31.8 g/dL 30.5 - 36.0 g/dL [facility] MCV (RBC) [Entitic vol] 84.4 fL 80.0 - 100.0 fL [facility] Monocytes (Bld) [#/Vol] 0.74 10*3/uL [facility] Monocytes/100 WBC (Bld) 4.7 % [facility] Neutrophils (Bld) [#/Vol] 12.61 10*3/uL High [facility] Neutrophils/100 WBC (Bld) 79.6 % [facility] Nucleated RBC (Bld) [#/Vol] [facility] Nucleated RBC/100 WBC (Bld) [Ratio] 0 % /100 WBC [facility] Platelet mean volume (Bld) [Entitic vol] 9 fL 9.0 - 12.7 fL [facility] Platelets (Bld) [#/Vol] 315 10*3/uL [facility] RBC (Bld) [#/Vol] 3.91 10*6/uL Low 4.20 - 6.00 m/uL [facility] WBC (Bld) [#/Vol] 15.86 10*3/uL High [facility] Basophils (Bld) [#/Vol] 0.05 10*3/uL Normal <0.11 [facility] Comment on above: Order Comment: Speci men Type: BLOOD SPECIMENOrdering Facility: [facility] Address: [address] [place] [address] Performed By: #### 5 7021-8 ####[facility] LABCLIA [id number] [place] [address] Basophils/100 WBC (Bld) 0.3 % Normal [facility] Comment on above: Order Comment: Speci men Type: BLOOD SPECIMENOrdering Facility: [facility] Address: [address] [place] [address] Performed By: #### 5 7021-8 ####[facility] LABCLIA [id number] [place] [address] Differential cell count method Nom (Bld) Auto Normal [facility] Comment on above: Order Comment: Speci men Type: BLOOD SPECIMENOrdering Facility: [facility] Address: [address] [place] [address] Performed By: #### 5 7021-8 ####[facility] LABCLIA [id number] [place] [address] Eosinophils (Bld) [#/Vol] 0.48 10*3/uL High <0.46 [facility] Comment on above: Order Comment: Speci men Type: BLOOD SPECIMENOrdering Facility: [facility] Address: [address] [place] [address] Performed By: #### 5 7021-8 ####[facility] LABCLIA [id number] [place] [address] Eosinophils/100 WBC (Bld) 3.0 % Normal [facility] Comment on above: Order Comment: Speci men Type: BLOOD SPECIMENOrdering Facility: [facility] Address: [address] [place] [address] Performed By: #### 5 7021-8 ####[facility] LABCLIA [id number] [place] [address] Erythrocyte distribution width (RBC) [Ratio] 14.8 % Normal 11.5-15.0 [facility] Comment on above: Order Comment: Speci men Type: BLOOD SPECIMENOrdering Facility: [facility] Address: [address] [place] [address] Performed By: #### 5 7021-8 ####[facility] LABCLIA [id number] [place] [address] Hematocrit (Bld) [Volume fraction] 33.0 % Low 39.0-51.0 [facility] Comment on above: Order Comment: Speci men Type: BLOOD SPECIMENOrdering Facility: [facility] Address: [address] [place] [address] Performed By: #### 5 7021-8 ####[facility] LABIA [id number] [place] [address] Hemoglobin (Bld) [Mass/Vol] 10.5 g/dL Low 13.0-17.0 [facility] Comment on above: Order Comment: Speci men Type: BLOOD SPECIMENOrdering Facility: [facility] Address: [address] [place] [address] Performed By: #### 5 7021-8 ####[facility] LABCLIA [id number] [place] [address] Immature granulocytes (Bld) [#/Vol] 0.15 10*3/uL High <0.10 [facility] Comment on above: Order Comment: Speci men Type: BLOOD SPECIMENOrdering Facility: [facility] Address: [address] [place] [address] Performed By: #### 5 7021-8 ####[facility] LABIA [id number] [place] [address] Immature granulocytes/100 WBC (Bld) 0.9 % Normal [facility] Comment on above: Order Comment: Speci men Type: BLOOD SPECIMENOrdering Facility: [facility] Address: [address] [place] [address] Performed By: #### 5 7021-8 ####[facility] LABCLIA [id number] [place] [address] Lymphocytes (Bld) [#/Vol] 1.83 10*3/uL Normal 1.00-4.00 [facility] Comment on above: Order Comment: Speci men Type: BLOOD SPECIMENOrdering Facility: [facility] Address: [address] [place] [address] Performed By: #### 5 7021-8 ####[facility] LABCLIA [id number] [place] [address] Lymphocytes/100 WBC (Bld) 11.5 % Normal [facility] Comment on above: Order Comment: Speci men Type: BLOOD SPECIMENOrdering Facility: [facility] Address: [address] [place] [address] Performed By: #### 5 7021-8 ####[facility] LABCLIA [id number] [place] [address] MCH (RBC) [Entitic mass] 26.9 pg Normal 26.0-34.0 [facility] Comment on above: Order Comment: Speci men Type: BLOOD SPECIMENOrdering Facility: [facility] Address: [address] [place] [address] Performed By: #### 5 7021-8 ####[facility] LABCLIA [id number] [place] [address] MCHC (RBC) [Mass/Vol] 31.8 g/dL Normal 30.5-36.0 [facility] Comment on above: Order Comment: Speci men Type: BLOOD SPECIMENOrdering Facility: [facility] Address: [address] [place] [address] Performed By: #### 5 7021-8 ####[facility] LABCLIA [id number] [place] [address] MCV (RBC) [Entitic vol] 84.4 fL Normal 80.0-100.0 [facility] Comment on above: Order Comment: Speci men Type: BLOOD SPECIMENOrdering Facility: [facility] Address: [address] [place] [address] Performed By: #### 5 7021-8 ####[facility] LABIA [id number] [place] [address] Monocytes (Bld) [#/Vol] 0.74 10*3/uL Normal <0.87 [facility] Comment on above: Order Comment: Speci men Type: BLOOD SPECIMENOrdering Facility: [facility] Address: [address] [place] [address] Performed By: #### 5 7021-8 ####[facility] LABCLIA [id number] [place] [address] Monocytes/100 WBC (Bld) 4.7 % Normal [facility] Comment on above: Order Comment: Speci men Type: BLOOD SPECIMENOrdering Facility: [facility] Address: [address] [place] [address] Performed By: #### 5 7021-8 ####[facility] LABCLIA [id number] [place] [address] Neutrophils (Bld) [#/Vol] 12.61 10*3/uL High 1.45-7.50 [facility] Comment on above: Order Comment: Speci men Type: BLOOD SPECIMENOrdering Facility: [facility] Address: [address] [place] [address] Performed By: #### 5 7021-8 ####[facility] LABCLIA [id number] [place] [address] Neutrophils/100 WBC (Bld) 79.6 % Normal [facility] Comment on above: Order Comment: Speci men Type: BLOOD SPECIMENOrdering Facility: [facility] Address: [address] [place] [address] Performed By: #### 5 7021-8 ####[facility] LABCLIA [id number] [place] [address] Nucleated RBC (Bld) [#/Vol] 10*3/uL Normal <0.01 [facility] Comment on above: Order Comment: Speci men Type: BLOOD SPECIMENOrdering Facility: [facility] Address: [address] [place] [address] Performed By: #### 5 7021-8 ####[facility] LABCLIA [id number] [place] [address] Nucleated RBC/100 WBC (Bld) [Ratio] 0.0 /100 WBC Normal [facility] Comment on above: Order Comment: Speci men Type: BLOOD SPECIMENOrdering Facility: [facility] Address: [address] [place] [address] Performed By: #### 5 7021-8 ####[facility] LABCLIA [id number] [place] [address] Platelet mean volume (Bld) [Entitic vol] 9.0 fL Normal 9.0-12.7 [facility] Comment on above: Order Comment: Speci men Type: BLOOD SPECIMENOrdering Facility: [facility] Address: [address] [place] [address] Performed By: #### 5 7021-8 ####[facility] LABCLIA [id number] [place] [address] Platelets (Bld) [#/Vol] 315 10*3/uL Normal 150-400 [facility] Comment on above: Order Comment: Speci men Type: BLOOD SPECIMENOrdering Facility: [facility] Address: [address] [place] [address] Performed By: #### 5 7021-8 ####[facility] LABCLIA [id number] [place] [address] RBC (Bld) [#/Vol] 3.91 10*6/uL Low 4.20-6.00 [facility] Comment on above: Order Comment: Speci men Type: BLOOD SPECIMENOrdering Facility: [facility] Address: [address] [place] [address] Performed By: #### 5 7021-8 ####[facility] LABCLIA [id number] [place] [address] WBC (Bld) [#/Vol] 15.86 10*3/uL High 3.70-11.00 [facility] Comment on above: Order Comment: Speci men Type: BLOOD SPECIMENOrdering Facility: [facility] Address: [address] [place] [address] Performed By: #### 5 7021-8 ####[facility] LABCLIA [id number] [place] [address] CNNURSEon 01-08-2025 CNNURSE Normal [facility] CNOVon 01-08-2025 CNOV Normal [facility] CNOVSPon 01-08-2025 CNOVSP Normal [facility] CNPNon 01-08-2025 CNPN Normal [facility] Comprehensive metabolic 2000 panelOrdered By: Sam De La Cruz on 01-08-2025 Albumin [Mass/Vol] 3.6 g/dL Low 3.9 - 4.9 g/dL [facility] ALP [Catalytic activity/Vol] 61 U/L 38 - 113 U/L [facility] ALT [Catalytic activity/Vol] 37 U/L 10 - 54 U/L [facility] Anion gap [Moles/Vol] 12 mmol/L 8 - 15 mmol/L [facility] AST [Catalytic activity/Vol] 27 U/L 14 - 40 U/L [facility] Bilirubin [Mass/Vol] 0.3 mg/dL 0.2 - 1 .3 mg/dL [facility] Calcium [Mass/Vol] 9.1 mg/dL 8.5 - 10. 2 mg/dL [facility] Chloride [Moles/Vol] 102 mmol/L 98 - 10 7 mmol/L [facility] CO2 [Moles/Vol] 22 mmol/L 22 - 30 mmol/L [facility] Creatinine [Mass/Vol] 0.7 mg/dL Low 0.73 - 1.22 mg/dL [facility] GFR/1.73 sq M.predicted among non-blacks MDRD (S/P/Bld) [Vol rate/Area] 104 mL/min/{1.73_m2} - PINF [facility] Comment on above: Estimated Glomerular Filtration [...] 131 mg/dL High 74 - 99 mg/dL [facility] Comment on above: The [place] Diabete s Association (ADA) provides guidance for [...] Standards of Medical Care in Diabetes 2016, [place] [employer]. Diabetes Care. 2016.39(Suppl 1). Interpretation and review of laboratory results Abnormal [facility] Potassium [Moles/Vol] 3.6 mmol/L Low 3.7 - 5.1 mmol/L [facility] Protein [Mass/Vol] 6.9 g/dL 6.3 - 8.0 g/dL [facility] Sodium [Moles/Vol] 136 mmol/L 136 - 144 mmol/L [facility] Urea nitrogen [Mass/Vol] 8 mg/dL Low 9 - 24 mg/dL [facility] Comprehensive metabolic 2000 panelon 01-08-2025 Albumin [Mass/Vol] 3.6 g/dL Low 3.9-4.9 [facility] Comment on above: Order Comment: Speci men Type: BLOOD SPECIMENOrdering Facility: [facility] Address: [address] [place] [address] Performed By: #### 2 [id number], ####[facility] LABCLIA [id number] [place] [address] ALP [Catalytic activity/Vol] 61 U/L Normal 38-113 [facility] Comment on above: Order Comment: Speci men Type: BLOOD SPECIMENOrdering Facility: [facility] [facility] Address: [address] [place] [address] Performed By: #### 2 4323-8, ####[facility] LABCLIA [id number] [place] [address] ALT [Catalytic activity/Vol] 37 U/L Normal 10-54 [facility] Comment on above: Order Comment: Speci men Type: BLOOD SPECIMENOrdering Facility: [facility] Address: [address] [place] [address] Performed By: #### 2 4323-8, ####[facility] LABCLIA [id number] [place] [address] Anion gap [Moles/Vol] 12 mmol/L Normal 8-15 [facility] Comment on above: Order Comment: Speci men Type: BLOOD SPECIMENOrdering Facility: [facility] Address: [address] [place] [address] Performed By: #### 2 4323-8, ####[facility] LABCLIA [id number] [place] [address] AST [Catalytic activity/Vol] 27 U/L Normal 14-40 [facility] Comment on above: Order Comment: Speci men Type: BLOOD SPECIMENOrdering Facility: [facility] Address: [address] [place] [address] Performed By: #### 2 4323-8, ####[facility] LABCLIA [id number] [place] [address] Bilirubin [Mass/Vol] 0.3 mg/dL Normal 0.2-1.3 [facility] Comment on above: Order Comment: Speci men Type: BLOOD SPECIMENOrdering Facility: [facility] Address: [address] [place] [address] Performed By: #### 2 4323-8, ####[facility] LABCLIA [id number] [place] [address] Calcium [Mass/Vol] 9.1 mg/dL Normal 8.5-10.2 [facility] Comment on above: Order Comment: Speci men Type: BLOOD SPECIMENOrdering Facility: [facility] Address: [address] [place] [address] Performed By: #### 2 4323-8, ####[facility] LABCLIA [id number] [place] [address] Chloride [Moles/Vol] 102 mmol/L Normal 98-107 [facility] Comment on above: Order Comment: Speci men Type: BLOOD SPECIMENOrdering Facility: [facility] Address: [address] [place] [address] Performed By: #### 2 4323-8, ####[facility] LABCLIA [id number] [place] [address] CO2 [Moles/Vol] 22 mmol/L Normal 22-30 [facility] Comment on above: Order Comment: Speci men Type: BLOOD SPECIMENOrdering Facility: [facility] Address: [address] [place] [address] Performed By: #### 2 4323-8, ####[facility] LABCLIA [id number] [place] [address] Creatinine [Mass/Vol] 0.70 mg/dL Low 0.73-1.22 [facility] Comment on above: Order Comment: Speci men Type: BLOOD SPECIMENOrdering Facility: [facility] Address: [address] [place] [address] Performed By: #### 2 4323-8, ####[facility] LABCLIA [id number] [place] [address] eGFRcr SerPlBld CKD-EPI 2020 104 mL/min/1.73m??? Normal >=60 [facility] Comment on above: Order Comment: Speci men Type: BLOOD SPECIMENOrdering Facility: [facility] Address: [address] [place] [address] Result Comment: Carly mated Glomerular Filtration Rate [...] actual GFR. Performed By: #### 2 4323-8, ####[facility] LABCLIA [id number] [place] [address] Glucose [Mass/Vol] 131 mg/dL High 74-99 [facility] Comment on above: Order Comment: Speci men Type: BLOOD SPECIMENOrdering Facility: [facility] Address: [address] [place] [address] Result Comment: The [place] Diabetes Association (ADA) provides guidance for cutoff [...] Standards of Medical Care in Diabetes 2016, [place] Diabetes Association. Diabetes Care. 2016.39(Suppl 1). Performed By: #### 2 4323-8, ####[facility] LABCLIA [id number] [place] [address] Potassium [Moles/Vol] 3.6 mmol/L Low 3.7-5.1 [facility] Comment on above: Order Comment: Speci men Type: BLOOD SPECIMENOrdering Facility: [facility] Address: [address] [place] [address] Performed By: #### 2 4323, ####[facility] LABCLIA [id number] [place] [address] Protein [Mass/Vol] 6.9 g/dL Normal 6.3-8.0 [facility] Comment on above: Order Comment: Speci men Type: BLOOD SPECIMENOrdering Facility: [facility] Address: [address] [place] [address] Performed By: #### 2 4323-8, ####[facility] LABCLIA [id number] [place] [address] Sodium [Moles/Vol] 136 mmol/L Normal 136-144 [facility] Comment on above: Order Comment: Speci men Type: BLOOD SPECIMENOrdering Facility: [facility] Address: [address] [place], [place] [address] Performed By: #### 2 4323-8, ####[facility] LABCLIA [id number] [place] [address] Urea nitrogen [Mass/Vol] 8 mg/dL Low 9-24 [facility] Comment on above: Order Comment: Speci men Type: BLOOD SPECIMENOrdering Facility: [facility] Address: [address] [place], [place] [id number] Performed By: #### 2 4323-8, ####[facility] LABCLIA [id number] [place] [address] MAGNESIUMon 01-08-2025 Magnesium [Mass/Vol] 1.8 mg/dL 1.7 - 2 .3 mg/dL [facility] Magnesium SerPl-mCncon 01-08 Magnesium [Mass/Vol] 1.8 mg/dL Normal 1.7-2.3 [facility] Comment on above: Order Comment: Speci men Type: BLOOD SPECIMENOrdering Facility: [facility] Address: [address] [place] [address] Performed By: #### 2 4323-8, ####[facility] LABCLIA [id number] [place] [address] Magnesium [Mass/Vol]on 01-08 Interpretation and review of laboratory results Normal [facility] Basic Metabolic Panelon 07-2 6-2025 Creatinine Clr Calc Pharmacy 106.80 Normal [facility] Comment on above: Result Comment: PERF ORMED BY: [place] [address] PATHOLOGIST MARKETING SENIOR RECRUITER KELVIN HOLMAN M.D. Performed By: #### M G, HS TROP, DDIMER, TSH3, CMP, BNP, CBC, [id number], PTT, PT #### [place] [address] [place] GFR/1.73 sq M.predicted MDRD (S/P/Bld) [Vol rate/Area] mL/min/{1.73_m2} Normal [facility] Comment on above: Performed By: #### M G, HS TROP, DDIMER, TSH3, CMP, BNP, CBC, [id number], PTT, PT #### [address] Basophils [#/volume] in Bloo d by Automated countOrdered By: Norah Whittaker on 01-06-2025 Basophils (Bld) [#/Vol] 0.1 10*3/uL Normal 0.0-0.2 [facility] Comment on above: Result Comment: PERF ORMED BY: [place] [address] PATHOLOGIST MARKETING SENIOR RECRUITER KELVIN HOLMAN M.D. Performed By: #### M G, HS TROP, DDIMER, TSH3, CMP, BNP, CBC, [id number], PTT, PT #### [place] [address] [place] Basophils/100 leukocytes in Blood by Automated countOrdered By: Norah Whittaker on 01-06-2025 Basophils/100 WBC (Bld) 0.7 % Normal . [facility] Comment on above: Performed By: #### M G, HS TROP, DDIMER, TSH3, CMP, BNP, CBC, [id number], PTT, PT #### [place] [address] [place] Calcium [Mass/volume] in Ser um or PlasmaOrdered By: Norah Whittaker on 01-06-2025 Calcium [Mass/Vol] 7.4 mg/dL Low 8.6-10.3 [facility] Comment on above: Performed By: #### M G, HS TROP, DDIMER, TSH3, CMP, BNP, CBC, [id number], PTT, PT #### [address] Carbon dioxide, total [Moles /volume] in Serum or PlasmaOrdered By: Norah Whittaker on 01-06-2025 CO2 [Moles/Vol] 22.6 mmol/L Normal 21.0-31.0 [facility] Comment on above: Performed By: #### M G, HS TROP, DDIMER, TSH3, CMP, BNP, CBC, [id number], PTT, PT #### [address] Chloride [Moles/volume] in S karishma or PlasmaOrdered By: Norah Whittaker on 01-06-2025 Chloride [Moles/Vol] 104 mmol/L Normal 98-107 [facility] Comment on above: Performed By: #### M G, HS TROP, DDIMER, TSH3, CMP, BNP, CBC, [id number], PTT, PT #### [address] Complete Blood Count Auto Di ffon 01-06-2025 Mean Corpuscular HGB Conc 32.6 g/dL Normal 32.5-35.6 [facility] Comment on above: Performed By: #### M G, HS TROP, DDIMER, TSH3, CMP, BNP, CBC, [id number], PTT, PT #### [address] NRBC% 0.0 /100{WBC} Normal 0-0.5 [facility] Comment on above: Performed By: #### M G, HS TROP, DDIMER, TSH3, CMP, BNP, CBC, [id number], PTT, PT #### [address] White Blood Count 14.9 [CFU]/mL High 4.1-10.5 [facility] Comment on above: Performed By: #### M G, HS TROP, DDIMER, TSH3, CMP, BNP, CBC, [id number], PTT, PT #### [facility] [address] Creatinine [Mass/volume] in Serum or PlasmaOrdered By: Norah Whittaker on 01-06-2025 Creatinine [Mass/Vol] 0.73 mg/dL Normal 0.70-1.30 [facility] Comment on above: Performed By: #### M G, HS TROP, DDIMER, TSH3, CMP, BNP, CBC, [id number], PTT, PT #### [facility] [address] Eosinophils [#/volume] in Bl ood by Automated countOrdered By: Norah Whittaker on 01-06-2025 Eosinophils (Bld) [#/Vol] 0.5 10*3/uL High 0.0-0.45 [facility] Comment on above: Performed By: #### M G, HS TROP, DDIMER, TSH3, CMP, BNP, CBC, [id number], PTT, PT #### [facility] [address] [place] [address] [place] Eosinophils/100 leukocytes i n Blood by Automated countOrdered By: Norah Whittaker on 01-06-2025 Eosinophils/100 WBC (Bld) 3.4 % Normal . [facility] Comment on above: Performed By: #### M G, HS TROP, DDIMER, TSH3, CMP, BNP, CBC, [id number], PTT, PT #### [facility] [address] [place] [address] [place] Erythrocyte distribution wid th [Ratio] by Automated countOrdered By: Norah Whittaker on 01-06-2025 Erythrocyte distribution width (RBC) [Ratio] 15.8 % High 12.0-14.8 [facility] Comment on above: Performed By: #### M G, HS TROP, DDIMER, TSH3, CMP, BNP, CBC, [id number], PTT, PT #### [facility] [address] [place] [address] [place] Erythrocytes [#/volume] in B lood by Automated countOrdered By: Norah Whittaker on 01-06-2025 RBC (Bld) [#/Vol] 3.21 10*6/uL Low 3.90-5.60 [facility] Comment on above: Performed By: #### M G, HS TROP, DDIMER, TSH3, CMP, BNP, CBC, [id number], PTT, PT #### [facility] [address] [place] [id number] [place] Glucose [Mass/volume] in Ser um or PlasmaOrdered By: Norah Whittaker on 01-06-2025 Glucose [Mass/Vol] 92 mg/dL Normal 70-100 [facility] Comment on above: ADA recommended refe rence rangeRandom Glucose Reference Range is dependent on time and content of last meal. Glucose of more than 200 mg/dL in a nonstressed, ambulatory subject supports the diagnosis of Diabetes Mellitus. Result Comment: [place] om Glucose Reference Range is dependent on time and content of last meal. Glucose of more than 200 mg/dL in a nonstressed, ambulatory subject supports the diagnosis of Diabetes Mellitus. ADA recommended reference range Performed By: #### M G, HS TROP, DDIMER, TSH3, CMP, BNP, CBC, [id number], PTT, PT #### [facility] [address] [place] [id number] [place] Hematocrit [Volume Fraction] of Blood by Automated countOrdered By: Norah Whittaker on 01-06-2025 Hematocrit (Bld) [Volume fraction] 26.3 % Low 38.8-50.0 [facility] Comment on above: Performed By: #### M G, HS TROP, DDIMER, TSH3, CMP, BNP, CBC, [id number], PTT, PT #### [facility] [address] [place] [id number] [place] Hemoglobin [Mass/volume] in BloodOrdered By: Norah Whittaker on 01-06-2025 Hemoglobin (Bld) [Mass/Vol] 8.6 g/dL Low 13.0-17.0 [facility] Comment on above: Performed By: #### M G, HS TROP, DDIMER, TSH3, CMP, BNP, CBC, [id number], PTT, PT #### [facility] [address] Leukocytes [#/volume] correc abe for nucleated erythrocytes in Blood by Automated counOrdered By: Norah Whittaker on 01-06-2025 WBC corrected for nucl RBC Auto (Bld) [#/Vol] 14.9 10*3/uL High 4.1-10.5 [facility] Leukocytes [#/volume] in Blo od by Automated countOrdered By: Norah Whittaker on 01-06-2025 WBC (Bld) [#/Vol] 14.9 10*3/uL High 4.1-10.5 [facility] Comment on above: Performed By: #### M G, HS TROP, DDIMER, TSH3, CMP, BNP, CBC, [id number], PTT, PT #### [facility] [address] [place] [address] [place] Lymphocytes [#/volume] in Bl ood by Automated countOrdered By: Norah Whittaker on 01-06-2025 Lymphocytes (Bld) [#/Vol] 1.2 10*3/uL Normal 1.00-4.8 [facility] Comment on above: Performed By: #### M G, HS TROP, DDIMER, TSH3, CMP, BNP, CBC, [id number], PTT, PT #### [facility] [address] [place] [address] [place] Lymphocytes/100 leukocytes i n Blood by Automated countOrdered By: Norah Whittaker on 01-06-2025 Lymphocytes/100 WBC (Bld) 8.3 % Normal . [facility] Comment on above: Performed By: #### M G, HS TROP, DDIMER, TSH3, CMP, BNP, CBC, [id number], PTT, PT #### [facility] [address] [place] [address] [place] MCH [Entitic mass] by Automa abe countOrdered By: Norah Whittaker on 01-06-2025 MCH (RBC) [Entitic mass] 26.8 pg Low 27.5-35.2 [facility] Comment on above: Performed By: #### M G, HS TROP, DDIMER, TSH3, CMP, BNP, CBC, [id number], PTT, PT #### [facility] [address] MCHC Auto (RBC) [Mass/Vol]Or dered By: Norah Whittaker on 01-06-2025 MCHC (RBC) [Mass/Vol] 32.6 g/dL 32.5-35.6 [facility] MCV [Entitic volume] by Auto mated countOrdered By: Norah Whittaker on 01-06-2025 MCV (RBC) [Entitic vol] 82.1 fL Low 83.5-101 [facility] Comment on above: Performed By: #### M G, HS TROP, DDIMER, TSH3, CMP, BNP, CBC, [id number], PTT, PT #### [address] Monocytes [#/volume] in Bloo d by Automated countOrdered By: Norah Whittaker on 01-06-2025 Monocytes (Bld) [#/Vol] 0.9 10*3/uL High 0.0-0.8 [facility] Comment on above: Performed By: #### M G, HS TROP, DDIMER, TSH3, CMP, BNP, CBC, [id number], PTT, PT #### [address] Monocytes/100 leukocytes in Blood by Automated countOrdered By: Norah Whittaker on 01-06-2025 Monocytes/100 WBC (Bld) 6.0 % Normal . [facility] Comment on above: Performed By: #### M G, HS TROP, DDIMER, TSH3, CMP, BNP, CBC, [id number], PTT, PT #### [facility] [address] Neutrophils [#/volume] in Bl ood by Automated countOrdered By: Norah Whittaker on 01-06-2025 Neutrophils (Bld) [#/Vol] 12.2 10*3/uL High 1.8-7.7 [facility] Comment on above: Performed By: #### M G, HS TROP, DDIMER, TSH3, CMP, BNP, CBC, [id number], PTT, PT #### [facility] [address] Neutrophils/100 leukocytes i n Blood by Automated countOrdered By: Norah Whittaker on 01-06-2025 Neutrophils/100 WBC (Bld) 81.6 % Normal . [facility] Comment on above: Performed By: #### M G, HS TROP, DDIMER, TSH3, CMP, BNP, CBC, [id number], PTT, PT #### [facility] [address] [place] [address] No Panel InformationOrdered By: Norah Whittaker on 01-06-2025 Estimated GFR (CKD-EPI) > 60.0 mL/Min [facility] Pharm[facility] Creatinine Clearance (Chem 106.80 [facility] Nucleated erythrocytes [Pres ence] in Blood by Automated countOrdered By: Norah Whittaker on 01-06-2025 Nucleated RBC Auto Ql (Bld) 0.0 /100{WBC} 0-0.5 [facility] Platelet mean volume [Entiti c volume] in Blood by Automated countOrdered By: Norah Whittaker on 01-06-2025 Platelet mean volume (Bld) [Entitic vol] 7.6 fL Normal 6.6-10.1 [facility] Comment on above: Performed By: #### M G, HS TROP, DDIMER, TSH3, CMP, BNP, CBC, [id number], PTT, PT #### [facility] [address] [place] [address] Platelets [#/volume] in Bloo d by Automated countOrdered By: Norah Whittaker on 01-06-2025 Platelets (Bld) [#/Vol] 272 10*3/uL Normal 150-450 [facility] Comment on above: Performed By: #### M G, HS TROP, DDIMER, TSH3, CMP, BNP, CBC, [id number], PTT, PT #### [facility] [address] [place] [address] [place] Potassium [Moles/volume] in Serum or PlasmaOrdered By: Norah Semaskiene on 01-06-2025 Potassium [Moles/Vol] 3.2 mmol/L Low 3.5-5.1 [facility] Comment on above: Performed By: #### M G, HS TROP, DDIMER, TSH3, CMP, BNP, CBC, [id number], PTT, PT #### [facility] [address] Serum or plasma anion gap de terminationOrdered By: Norah Juaniene on 01-06-2025 Anion gap [Moles/Vol] 12.6 mmol/L Normal 6.0-15.0 [facility] Comment on above: Performed By: #### M G, HS TROP, DDIMER, TSH3, CMP, BNP, CBC, [id number], PTT, PT #### [facility] [address] [place] [address] [place] Sodium [Moles/volume] in Ser um or PlasmaOrdered By: Norah Semaskiene on 01-06-2025 Sodium [Moles/Vol] 136 mmol/L Normal 136-145 [facility] Comment on above: Performed By: #### M G, HS TROP, DDIMER, TSH3, CMP, BNP, CBC, [id number], PTT, PT #### [facility] [address] [place] [address] [place] Urea nitrogen [Mass/volume] in Serum or PlasmaOrdered By: Norah Semaskiene on 01-06-2025 Urea nitrogen [Mass/Vol] 4 mg/dL Low 7-25 [facility] Comment on above: Performed By: #### M G, HS TROP, DDIMER, TSH3, CMP, BNP, CBC, [id number], PTT, PT #### [address] Aerobic Cultureon 01-05-2025 Aerobic Culture Light Normal Respira tory Felisa 2 Days Gram Stain Result 1+ White Blood Cells 1+ Epithelial Cells Rare Gram Positive Bacilli PERFORMED BY: [place] [address] PATHOLOGIST MARKETING SENIOR RECRUITER KELVIN Aranda [facility] Comment on above: Performed By: #### M G, HS TROP, DDIMER, TSH3, CMP, BNP, CBC, [id number], PTT, PT #### [address] Aerobic cultureOrdered By: Mike Whittaker on 01-05-2025 Bacteria identified Aer cx Nom (Unsp spec) 2 Days [facility] Basic Metabolic Panelon 12-13 Anion gap [Moles/Vol] 9.9 mmol/L Normal 6.0-15.0 [facility] Comment on above: Performed By: #### M G, HS TROP, DDIMER, TSH3, CMP, BNP, CBC, [id number], PTT, PT #### [address] Calcium [Mass/Vol] 7.8 mg/dL Low 8.6-10.3 [facility] Comment on above: Performed By: #### M G, HS TROP, DDIMER, TSH3, CMP, BNP, CBC, [id number], PTT, PT #### [place] [address] [place] Chloride [Moles/Vol] 109 mmol/L High 98-107 [facility] Comment on above: Performed By: #### M G, HS TROP, DDIMER, TSH3, CMP, BNP, CBC, [id number], PTT, PT #### [address] CO2 [Moles/Vol] 23.7 mmol/L Normal 21.0-31.0 [facility] Comment on above: Performed By: #### M G, HS TROP, DDIMER, TSH3, CMP, BNP, CBC, [id number], PTT, PT #### [address] Creatinine [Mass/Vol] 0.90 mg/dL Normal 0.70-1.30 [facility] Comment on above: Performed By: #### M G, HS TROP, DDIMER, TSH3, CMP, BNP, CBC, [id number], PTT, PT #### [place] [address] [place] Creatinine Clr Calc Pharmacy 86.63 Normal [facility] Comment on above: Result Comment: PERF ORMED BY: [place] [address] PATHOLOGIST MARKETING SENIOR RECRUITER KELVIN HOLMAN M.D. Performed By: #### M G, HS TROP, DDIMER, TSH3, CMP, BNP, CBC, [id number], PTT, PT #### [place] [address] [place] GFR/1.73 sq M.predicted MDRD (S/P/Bld) [Vol rate/Area] mL/min/{1.73_m2} Normal [facility] Comment on above: Performed By: #### M G, HS TROP, DDIMER, TSH3, CMP, BNP, CBC, [id number], PTT, PT #### [address] Glucose [Mass/Vol] 92 mg/dL Normal 70-100 [facility] Comment on above: Result Comment: [place] Glucose Reference Range is dependent on time and content of last meal. Glucose of more than 200 mg/dL in a nonstressed, ambulatory subject supports the diagnosis of Diabetes Mellitus. ADA recommended reference range Performed By: #### M G, HS TROP, DDIMER, TSH3, CMP, BNP, CBC, [id number], PTT, PT #### [address] Potassium [Moles/Vol] 3.6 mmol/L Normal 3.5-5.1 [facility] Comment on above: Performed By: #### M G, HS TROP, DDIMER, TSH3, CMP, BNP, CBC, [id number], PTT, PT #### [address] Sodium [Moles/Vol] 139 mmol/L Normal 136-145 [facility] Comment on above: Performed By: #### M G, HS TROP, DDIMER, TSH3, CMP, BNP, CBC, [id number], PTT, PT #### [address] Urea nitrogen [Mass/Vol] 6 mg/dL Low 7-25 [facility] Comment on above: Performed By: #### M G, HS TROP, DDIMER, TSH3, CMP, BNP, CBC, [id number], PTT, PT #### [address] CNPNon 01-05-2025 CNPN Normal [facility] Complete Blood Count Auto Di ffon 01-05-2025 Basophils (Bld) [#/Vol] 0.1 10*3/uL Normal 0.0-0.2 [facility] Comment on above: Result Comment: PERF ORMED BY: [place] [address] PATHOLOGIST MARKETING SENIOR RECRUITER KELVIN HOLMAN M.D. Performed By: #### M G, HS TROP, DDIMER, TSH3, CMP, BNP, CBC, [id number], PTT, PT #### [address] Basophils/100 WBC (Bld) 0.4 % Normal . [facility] Comment on above: Performed By: #### M G, HS TROP, DDIMER, TSH3, CMP, BNP, CBC, [id number], PTT, PT #### [address] Eosinophils (Bld) [#/Vol] 0.5 10*3/uL High 0.0-0.45 [facility] Comment on above: Performed By: #### M G, HS TROP, DDIMER, TSH3, CMP, BNP, CBC, [id number], PTT, PT #### [address] Eosinophils/100 WBC (Bld) 4.2 % Normal . [facility] Comment on above: Performed By: #### M G, HS TROP, DDIMER, TSH3, CMP, BNP, CBC, [id number], PTT, PT #### [address] Erythrocyte distribution width (RBC) [Ratio] 15.7 % High 12.0-14.8 [facility] Comment on above: Performed By: #### M G, HS TROP, DDIMER, TSH3, CMP, BNP, CBC, [id number], PTT, PT #### [address] Hematocrit (Bld) [Volume fraction] 27.5 % Low 38.8-50.0 [facility] Comment on above: Performed By: #### M G, HS TROP, DDIMER, TSH3, CMP, BNP, CBC, [id number], PTT, PT #### [address] Hemoglobin (Bld) [Mass/Vol] 8.8 g/dL Low 13.0-17.0 [facility] Comment on above: Performed By: #### M G, HS TROP, DDIMER, TSH3, CMP, BNP, CBC, [id number], PTT, PT #### [address] Lymphocytes (Bld) [#/Vol] 1.1 10*3/uL Normal 1.00-4.8 [facility] Comment on above: Performed By: #### M G, HS TROP, DDIMER, TSH3, CMP, BNP, CBC, [id number], PTT, PT #### [address] Lymphocytes/100 WBC (Bld) 9.0 % Normal . [facility] Comment on above: Performed By: #### M G, HS TROP, DDIMER, TSH3, CMP, BNP, CBC, [id number], PTT, PT #### [address] MCH (RBC) [Entitic mass] 26.8 pg Low 27.5-35.2 [facility] Comment on above: Performed By: #### M G, HS TROP, DDIMER, TSH3, CMP, BNP, CBC, [id number], PTT, PT #### [address] MCV (RBC) [Entitic vol] 83.3 fL Low 83.5-101 T [facility] Comment on above: Performed By: #### M G, HS TROP, DDIMER, TSH3, CMP, BNP, CBC, [id number], PTT, PT #### [address] Mean Corpuscular HGB Conc 32.2 g/dL Low 32.5-35.6 [facility] Comment on above: Performed By: #### M G, HS TROP, DDIMER, TSH3, CMP, BNP, CBC, [id number], PTT, PT #### [address] Monocytes (Bld) [#/Vol] 1.1 10*3/uL High 0.0-0.8 [facility] Comment on above: Performed By: #### M G, HS TROP, DDIMER, TSH3, CMP, BNP, CBC, [id number], PTT, PT #### [address] Monocytes/100 WBC (Bld) 8.7 % Normal . [facility] Comment on above: Performed By: #### M G, HS TROP, DDIMER, TSH3, CMP, BNP, CBC, [id number], PTT, PT #### [address] Neutrophils (Bld) [#/Vol] 9.8 10*3/uL High 1.8-7.7 [facility] Comment on above: Performed By: #### M G, HS TROP, DDIMER, TSH3, CMP, BNP, CBC, [id number], PTT, PT #### [address] Neutrophils/100 WBC (Bld) 77.7 % Normal . [facility] Comment on above: Performed By: #### M G, HS TROP, DDIMER, TSH3, CMP, BNP, CBC, [id number], PTT, PT #### [address] NRBC% 0.1 /100{WBC} Normal 0-0.5 [facility] Comment on above: Performed By: #### M G, HS TROP, DDIMER, TSH3, CMP, BNP, CBC, [id number], PTT, PT #### [address] Platelet mean volume (Bld) [Entitic vol] 7.8 fL Normal 6.6-10.1 [facility] Comment on above: Performed By: #### M G, HS TROP, DDIMER, TSH3, CMP, BNP, CBC, [id number], PTT, PT #### [address] Platelets (Bld) [#/Vol] 251 10*3/uL Normal 150-450 [facility] Comment on above: Performed By: #### M G, HS TROP, DDIMER, TSH3, CMP, BNP, CBC, [id number], PTT, PT #### [address] RBC (Bld) [#/Vol] 3.30 10*6/uL Low 3.90-5.60 [facility] Comment on above: Performed By: #### M G, HS TROP, DDIMER, TSH3, CMP, BNP, CBC, [id number], PTT, PT #### [address] WBC (Bld) [#/Vol] 12.6 10*3/uL High 4.1-10.5 [facility] Comment on above: Performed By: #### M G, HS TROP, DDIMER, TSH3, CMP, BNP, CBC, [id number], PTT, PT #### [address] White Blood Count 12.6 [CFU]/mL High 4.1-10.5 [facility] Comment on above: Performed By: #### M G, HS TROP, DDIMER, TSH3, CMP, BNP, CBC, [id number], PTT, PT #### [address] Gram stain microscopyOrdered By: Norah Whittaker on 01-05-2025 Microscopic observation Gram stain Nom (Unsp spec) [facility] BNP ser/plasOrdered By: Norah Whittaker on 01-04-2025 Natriuretic peptide B (Bld) [Mass/Vol] 124.0 pg/mL High 5-100 [facility] Comment on above: Result Comment: PERF ORMED BY: [place] [address] PATHOLOGIST MARKETING SENIOR RECRUITER KELVIN HOLMAN M.D. Performed By: #### B SALVAGE ENGINEER #### [address] Basic Metabolic Panelon 12-13 Anion gap [Moles/Vol] 10.7 mmol/L Normal 6.0-15.0 [facility] Comment on above: Performed By: #### M G, HS TROP, DDIMER, TSH3, CMP, BNP, CBC, [id number], PTT, PT #### [address] Calcium [Mass/Vol] 7.8 mg/dL Low 8.6-10.3 [facility] Comment on above: Performed By: #### M G, HS TROP, DDIMER, TSH3, CMP, BNP, CBC, [id number], PTT, PT #### [address] Chloride [Moles/Vol] 107 mmol/L Normal 98-107 [facility] Comment on above: Performed By: #### M G, HS TROP, DDIMER, TSH3, CMP, BNP, CBC, [id number], PTT, PT #### [address] CO2 [Moles/Vol] 23.6 mmol/L Normal 21.0-31.0 [facility] Comment on above: Performed By: #### M G, HS TROP, DDIMER, TSH3, CMP, BNP, CBC, [id number], PTT, PT #### [facility] [address] Creatinine [Mass/Vol] 0.79 mg/dL Normal 0.70-1.30 [facility] Comment on above: Performed By: #### M G, HS TROP, DDIMER, TSH3, CMP, BNP, CBC, [id number], PTT, PT #### [address] Creatinine Clr Calc Pharmacy 98.47 Normal [facility] Comment on above: Result Comment: PERF ORMED BY: [place] [address] PATHOLOGIST MARKETING SENIOR RECRUITER KELVIN HOLMAN M.D. Performed By: #### M G, HS TROP, DDIMER, TSH3, CMP, BNP, CBC, [id number], PTT, PT #### [address] GFR/1.73 sq M.predicted MDRD (S/P/Bld) [Vol rate/Area] mL/min/{1.73_m2} Normal [facility] Comment on above: Performed By: #### M G, HS TROP, DDIMER, TSH3, CMP, BNP, CBC, [id number], PTT, PT #### [address] Glucose [Mass/Vol] 79 mg/dL Normal 70-100 [facility] Comment on above: Result Comment: [facility] Glucose Reference Range is dependent on time and content of last meal. Glucose of more than 200 mg/dL in a nonstressed, ambulatory subject supports the diagnosis of Diabetes Mellitus. ADA recommended reference range Performed By: #### M G, HS TROP, DDIMER, TSH3, CMP, BNP, CBC, [id number], PTT, PT #### [facility] [address] Potassium [Moles/Vol] 3.3 mmol/L Low 3.5-5.1 [facility] Comment on above: Performed By: #### M G, HS TROP, DDIMER, TSH3, CMP, BNP, CBC, [id number], PTT, PT #### [facility] [address] Sodium [Moles/Vol] 138 mmol/L Normal 136-145 [facility] Comment on above: Performed By: #### M G, HS TROP, DDIMER, TSH3, CMP, BNP, CBC, [id number], PTT, PT #### [address] Urea nitrogen [Mass/Vol] 7 mg/dL Normal 7-25 [facility] Comment on above: Performed By: #### M G, HS TROP, DDIMER, TSH3, CMP, BNP, CBC, [id number], PTT, PT #### [address] CNPNon 01-04-2025 CNPN Normal [facility] Complete Blood Count Auto Di ffon 01-04-2025 Basophils (Bld) [#/Vol] 0.0 10*3/uL Normal 0.0-0.2 [facility] Comment on above: Result Comment: PERF ORMED BY: [place] [address] PATHOLOGIST MARKETING SENIOR RECRUITER KELVIN HOLMAN M.D. Performed By: #### M G, HS TROP, DDIMER, TSH3, CMP, BNP, CBC, [id number], PTT, PT #### [address] Basophils/100 WBC (Bld) 0.3 % Normal . T [facility] Comment on above: Performed By: #### M G, HS TROP, DDIMER, TSH3, CMP, BNP, CBC, [id number], PTT, PT #### [address] Eosinophils (Bld) [#/Vol] 0.5 10*3/uL High 0.0-0.45 [facility] Comment on above: Performed By: #### M G, HS TROP, DDIMER, TSH3, CMP, BNP, CBC, [id number], PTT, PT #### [address] Eosinophils/100 WBC (Bld) 3.6 % Normal . [facility] Comment on above: Performed By: #### M G, HS TROP, DDIMER, TSH3, CMP, BNP, CBC, [id number], PTT, PT #### [address] Erythrocyte distribution width (RBC) [Ratio] 16.1 % High 12.0-14.8 [facility] Comment on above: Performed By: #### M G, HS TROP, DDIMER, TSH3, CMP, BNP, CBC, [id number], PTT, PT #### [address] Hematocrit (Bld) [Volume fraction] 28.5 % Low 38.8-50.0 [facility] Comment on above: Performed By: #### M G, HS TROP, DDIMER, TSH3, CMP, BNP, CBC, [id number], PTT, PT #### [address] Hemoglobin (Bld) [Mass/Vol] 9.0 g/dL Low 13.0-17.0 [facility] Comment on above: Performed By: #### M G, HS TROP, DDIMER, TSH3, CMP, BNP, CBC, [id number], PTT, PT #### [address] Lymphocytes (Bld) [#/Vol] 1.1 10*3/uL Normal 1.00-4.8 [facility] Comment on above: Performed By: #### M G, HS TROP, DDIMER, TSH3, CMP, BNP, CBC, [id number], PTT, PT #### [address] Lymphocytes/100 WBC (Bld) 7.5 % Normal . [facility] Comment on above: Performed By: #### M G, HS TROP, DDIMER, TSH3, CMP, BNP, CBC, [id number], PTT, PT #### [address] MCH (RBC) [Entitic mass] 26.7 pg Low 27.5-35.2 [facility] Comment on above: Performed By: #### M G, HS TROP, DDIMER, TSH3, CMP, BNP, CBC, [id number], PTT, PT #### [address] MCV (RBC) [Entitic vol] 84.2 fL Normal 83.5-101 T [facility] Comment on above: Performed By: #### M G, HS TROP, DDIMER, TSH3, CMP, BNP, CBC, [id number], PTT, PT #### [address] Mean Corpuscular HGB Conc 31.8 g/dL Low 32.5-35.6 [facility] Comment on above: Performed By: #### M G, HS TROP, DDIMER, TSH3, CMP, BNP, CBC, [id number], PTT, PT #### [address] Monocytes (Bld) [#/Vol] 0.8 10*3/uL Normal 0.0-0.8 [facility] Comment on above: Performed By: #### M G, HS TROP, DDIMER, TSH3, CMP, BNP, CBC, [id number], PTT, PT #### [address] Monocytes/100 WBC (Bld) 5.4 % Normal . T [facility] Comment on above: Performed By: #### M G, HS TROP, DDIMER, TSH3, CMP, BNP, CBC, [id number], PTT, PT #### [address] Neutrophils (Bld) [#/Vol] 12.1 10*3/uL High 1.8-7.7 [facility] Comment on above: Performed By: #### M G, HS TROP, DDIMER, TSH3, CMP, BNP, CBC, [id number], PTT, PT #### [address] Neutrophils/100 WBC (Bld) 83.2 % Normal . [facility] Comment on above: Performed By: #### M G, HS TROP, DDIMER, TSH3, CMP, BNP, CBC, [id number], PTT, PT #### [address] NRBC% 0.0 /100{WBC} Normal 0-0.5 [facility] Comment on above: Performed By: #### M G, HS TROP, DDIMER, TSH3, CMP, BNP, CBC, [id number], PTT, PT #### [address] Platelet mean volume (Bld) [Entitic vol] 7.9 fL Normal 6.6-10.1 [facility] Comment on above: Performed By: #### M G, HS TROP, DDIMER, TSH3, CMP, BNP, CBC, [id number], PTT, PT #### [address] Platelets (Bld) [#/Vol] 281 10*3/uL Normal 150-450 [facility] Comment on above: Performed By: #### M G, HS TROP, DDIMER, TSH3, CMP, BNP, CBC, [id number], PTT, PT #### [address] RBC (Bld) [#/Vol] 3.38 10*6/uL Low 3.90-5.60 [facility] Comment on above: Performed By: #### M G, HS TROP, DDIMER, TSH3, CMP, BNP, CBC, [id number], PTT, PT #### [address] WBC (Bld) [#/Vol] 14.5 10*3/uL High 4.1-10.5 [facility] Comment on above: Performed By: #### M G, HS TROP, DDIMER, TSH3, CMP, BNP, CBC, [id number], PTT, PT #### [address] White Blood Count 14.5 [CFU]/mL High 4.1-10.5 [facility] Comment on above: Performed By: #### M G, HS TROP, DDIMER, TSH3, CMP, BNP, CBC, [id number], PTT, PT #### [address] Magnesium [Mass/volume] in S karishma or PlasmaOrdered By: Norah Whittaker on 01-04-2025 Magnesium [Mass/Vol] 1.9 mg/dL Normal 1.9-2.7 [facility] Comment on above: Result Comment: PERF ORMED BY: [place] [address] PATHOLOGIST MARKETING SENIOR RECRUITER KEVLIN HOLMAN M.D. Performed By: #### M G, HS TROP, DDIMER, TSH3, CMP, BNP, CBC, [id number], PTT, PT #### [address] X-ray reportOrdered By: Neri Lewis on 01-04-2025 Study report [facility] [place] [address] [place] [address] XRay Report Signed Patient: Jatin Koch II MR#: [id number] : 1960 Acct:[id number] Age/Sex: 64 / M ADM Date: 5 Loc: 4 Room: [address] [place] [address] Type: ADM IN Attending Dr: Norah Whittaker [...] Jr., D.ORocky 01/04/2025 3:42 PM Dictation Location: [place] [address] Transcribed By: [facility] 01/04/25 1542 Dictated By: Neftali Lewis Jr, DO 01/04/25 1541 Signed By: 01/04/25 1542 [facility] XR chest 2V*on 01-04-2025 XR chest 2V* [facility] [place] [address] XRay Report Signed Patient: Jatin Koch II MR#: [id number] : 1960 Acct:[id number] Age/Sex: 64 / M ADM Date: 01/02/25 Loc: 4 Room: [address] [place] [address] Type: ADM IN Attending Dr: Norah Whittaker [...] Jr., D.O. 01/04/2025 3:42 PM Dictation Location: [place] [address] Transcribed By: [facility] 01/04/25 1542 Dictated By: Neftali Lewis Jr, DO 01/04/25 1541 Signed By: 01/04/25 1542 Normal [facility] Basic Metabolic Panelon 12-13 Anion gap [Moles/Vol] 11.4 mmol/L Normal 6.0-15.0 [facility] Comment on above: Performed By: #### M G, HS TROP, DDIMER, TSH3, CMP, BNP, CBC, [id number], PTT, PT #### [address] Calcium [Mass/Vol] 8.0 mg/dL Low 8.6-10.3 [facility] Comment on above: Performed By: #### M G, HS TROP, DDIMER, TSH3, CMP, BNP, CBC, [id number], PTT, PT #### [facility] [address] [place] [address] Chloride [Moles/Vol] 106 mmol/L Normal 98-107 [facility] Comment on above: Performed By: #### M G, HS TROP, DDIMER, TSH3, CMP, BNP, CBC, [id number], PTT, PT #### [facility] [address] [place] [address] CO2 [Moles/Vol] 20.8 mmol/L Low 21.0-31.0 [facility] Comment on above: Performed By: #### M G, HS TROP, DDIMER, TSH3, CMP, BNP, CBC, [id number], PTT, PT #### [address] Creatinine [Mass/Vol] 0.69 mg/dL Low 0.70-1.30 [facility] Comment on above: Performed By: #### M G, HS TROP, DDIMER, TSH3, CMP, BNP, CBC, [id number], PTT, PT #### [facility] [address] Creatinine Clr Calc Pharmacy 112.62 Normal [facility] Comment on above: Result Comment: PERF ORMED BY: [place] [address] PATHOLOGIST MARKETING SENIOR RECRUITER KELVIN HOLMAN M.D. Performed By: #### M G, HS TROP, DDIMER, TSH3, CMP, BNP, CBC, [id number], PTT, PT #### [facility] [address] [place] [address] [place] GFR/1.73 sq M.predicted MDRD (S/P/Bld) [Vol rate/Area] mL/min/{1.73_m2} Normal [facility] Comment on above: Performed By: #### M G, HS TROP, DDIMER, TSH3, CMP, BNP, CBC, [id number], PTT, PT #### [place] [address] [place] Glucose [Mass/Vol] 136 mg/dL High 70-100 [facility] Comment on above: Result Comment: [place] Glucose Reference Range is dependent on time and content of last meal. Glucose of more than 200 mg/dL in a nonstressed, ambulatory subject supports the diagnosis of Diabetes Mellitus. ADA recommended reference range Performed By: #### M G, HS TROP, DDIMER, TSH3, CMP, BNP, CBC, [id number], PTT, PT #### [facility] [address] Potassium [Moles/Vol] 4.2 mmol/L Normal 3.5-5.1 [facility] Comment on above: Performed By: #### M G, HS TROP, DDIMER, TSH3, CMP, BNP, CBC, [id number], PTT, PT #### [facility] [address] Sodium [Moles/Vol] 134 mmol/L Low 136-145 [facility] Comment on above: Performed By: #### M G, HS TROP, DDIMER, TSH3, CMP, BNP, CBC, [id number], PTT, PT #### [address] Urea nitrogen [Mass/Vol] 9 mg/dL Normal 7-25 [facility] Comment on above: Performed By: #### M G, HS TROP, DDIMER, TSH3, CMP, BNP, CBC, [id number], PTT, PT #### [address] CNPNon 01-03-2025 CNPN Normal [facility] Complete Blood Count Auto Di ffon 01-03-2025 Basophils (Bld) [#/Vol] 0.0 10*3/uL Normal 0.0-0.2 [facility] Comment on above: Result Comment: PERF ORMED BY: [place] [address] PATHOLOGIST MARKETING SENIOR RECRUITER KELVIN HOLMAN M.D. Performed By: #### M G, HS TROP, DDIMER, TSH3, CMP, BNP, CBC, [id number], PTT, PT #### [address] Basophils/100 WBC (Bld) 0.2 % Normal . T cyril [facility] Comment on above: Performed By: #### M G, HS TROP, DDIMER, TSH3, CMP, BNP, CBC, [id number], PTT, PT #### [address] Eosinophils (Bld) [#/Vol] 0.0 10*3/uL Normal 0.0-0.45 [facility] Comment on above: Performed By: #### M G, HS TROP, DDIMER, TSH3, CMP, BNP, CBC, [id number], PTT, PT #### [address] Eosinophils/100 WBC (Bld) 0.3 % Normal . [facility] Comment on above: Performed By: #### M G, HS TROP, DDIMER, TSH3, CMP, BNP, CBC, [id number], PTT, PT #### [address] Erythrocyte distribution width (RBC) [Ratio] 15.7 % High 12.0-14.8 [facility] Comment on above: Performed By: #### M G, HS TROP, DDIMER, TSH3, CMP, BNP, CBC, [id number], PTT, PT #### [address] Hematocrit (Bld) [Volume fraction] 28.7 % Low 38.8-50.0 [facility] Comment on above: Performed By: #### M G, HS TROP, DDIMER, TSH3, CMP, BNP, CBC, [id number], PTT, PT #### [address] Hemoglobin (Bld) [Mass/Vol] 9.4 g/dL Low 13.0-17.0 [facility] Comment on above: Performed By: #### M G, HS TROP, DDIMER, TSH3, CMP, BNP, CBC, [id number], PTT, PT #### [address] Lymphocytes (Bld) [#/Vol] 0.7 10*3/uL Low 1.00-4.8 [facility] Comment on above: Performed By: #### M G, HS TROP, DDIMER, TSH3, CMP, BNP, CBC, [id number], PTT, PT #### [address] Lymphocytes/100 WBC (Bld) 9.2 % Normal . [facility] Comment on above: Performed By: #### M G, HS TROP, DDIMER, TSH3, CMP, BNP, CBC, [id number], PTT, PT #### [address] MCH (RBC) [Entitic mass] 27.3 pg Low 27.5-35.2 [facility] Comment on above: Performed By: #### M G, HS TROP, DDIMER, TSH3, CMP, BNP, CBC, [id number], PTT, PT #### [address] MCV (RBC) [Entitic vol] 83.4 fL Low 83.5-101 [facility] Comment on above: Performed By: #### M G, HS TROP, DDIMER, TSH3, CMP, BNP, CBC, [id number], PTT, PT #### [address] Mean Corpuscular HGB Conc 32.7 g/dL Normal 32.5-35.6 [facility] Comment on above: Performed By: #### M G, HS TROP, DDIMER, TSH3, CMP, BNP, CBC, [id number], PTT, PT #### [address] Monocytes (Bld) [#/Vol] 0.3 10*3/uL Normal 0.0-0.8 [facility] Comment on above: Performed By: #### M G, HS TROP, DDIMER, TSH3, CMP, BNP, CBC, [id number], PTT, PT #### [address] Monocytes/100 WBC (Bld) 3.1 % Normal . [facility] Comment on above: Performed By: #### M G, HS TROP, DDIMER, TSH3, CMP, BNP, CBC, [id number], PTT, PT #### [address] Neutrophils (Bld) [#/Vol] 7.0 10*3/uL Normal 1.8-7.7 [facility] Comment on above: Performed By: #### M G, HS TROP, DDIMER, TSH3, CMP, BNP, CBC, [id number], PTT, PT #### [address] Neutrophils/100 WBC (Bld) 87.2 % Normal . [facility] Comment on above: Performed By: #### M G, HS TROP, DDIMER, TSH3, CMP, BNP, CBC, [id number], PTT, PT #### [address] NRBC% 0.1 /100{WBC} Normal 0-0.5 [facility] Comment on above: Performed By: #### M G, HS TROP, DDIMER, TSH3, CMP, BNP, CBC, [id number], PTT, PT #### [address] Platelet mean volume (Bld) [Entitic vol] 7.9 fL Normal 6.6-10.1 [facility] Comment on above: Performed By: #### M G, HS TROP, DDIMER, TSH3, CMP, BNP, CBC, [id number], PTT, PT #### [address] Platelets (Bld) [#/Vol] 246 10*3/uL Normal 150-450 [facility] Comment on above: Performed By: #### M G, HS TROP, DDIMER, TSH3, CMP, BNP, CBC, [id number], PTT, PT #### [address] RBC (Bld) [#/Vol] 3.44 10*6/uL Low 3.90-5.60 [facility] Comment on above: Performed By: #### M G, HS TROP, DDIMER, TSH3, CMP, BNP, CBC, [id number], PTT, PT #### [address] WBC (Bld) [#/Vol] 8.0 10*3/uL Normal 4.1-10.5 [facility] Comment on above: Performed By: #### M G, HS TROP, DDIMER, TSH3, CMP, BNP, CBC, [id number], PTT, PT #### [address] White Blood Count 8.0 [CFU]/mL Normal 4.1-10.5 [facility] Comment on above: Performed By: #### M G, HS TROP, DDIMER, TSH3, CMP, BNP, CBC, [id number], PTT, PT #### [place] [id number] [facility] MRSA - MSSA Nasal PCRon 12-13 MRSA - MSSA Nasal PCR MRSA Result MRSA Negative MSSA Result MSSA Positive Real-time PCR Test performed by real-time PCR Reference Range Reference Range for all targets = Neg / Not Detected Reference Note 20 -- Reference Note 26 -- PERFORMED BY: [place] [address] PATHOLOGIST MARKETING SENIOR RECRUITER KELVIN HOLMAN M.D. Normal [facility] Comment on above: Performed By: #### M G, HS TROP, DDIMER, TSH3, CMP, BNP, CBC, [id number], PTT, PT #### [address] No Panel InformationOrdered By: Norah Whittaker on 01-03-2025 Nasal Screen MRSA/MSSA [facility] X-ray reportOrdered By: Matt Arroyo on 01-03-2025 Study report [facility] [place] [address] XRay Report Signed Patient: Jatin Koch II MR#: [id number] : 1960 Acct:[id number] Age/Sex: 64 / M ADM Date: 5 Loc: Room: [address] [place] [address] Type: ADM IN Attending Dr: Norah Whittaker [...] Arroyo M.D. 01/03/2025 12:31 PM Dictation Location: [place] [address] Transcribed By: [facility] 01/03/25 1231 Dictated By: Marcell Arroyo MD 01/03/25 1230 Signed By: 01/03/25 [facility] Work Phone: XR chest 2V*on 01-03-2025 XR chest 2V* [facility] [place] [address] XRay Report Signed Patient: Jatni Koch II MR#: [id number] : 1960 Acct:[id number] Age/Sex: 64 / M ADM Date: 01/02/25 Loc: Room: [address] [place] [address] Type: ADM IN Attending Dr: Norah Whittaker [...] Arroyo M.D. 01/03/2025 12:31 PM Dictation Location: [place] [address] Transcribed By: [facility] 01/03/25 1231 Dictated By: Marcell Arroyo MD 01/03/25 1230 Signed By: 01/03/25 1231 Normal [facility] Alanine aminotransferase [En zymatic activity/volume] in Serum or PlasmaOrdered By: Dominic Ryder on 01-02-2025 ALT [Catalytic activity/Vol] 9 U/L Normal 7-52 [facility] Comment on above: Performed By: #### M G, HS TROP, DDIMER, TSH3, CMP, BNP, CBC, [id number], PTT, PT #### [facility] [address] [place] [address] [place] Albumin [Mass/volume] in Ser um or Plasma by Bromocresol green (BCG) dye binding methoOrdered By: Dominic Ryder on 01-02-2025 Albumin BCG dye [Mass/Vol] 3.0 g/dL Low 3.5-5.7 [facility] [place] Alkaline phosphatase [Enzyma tic activity/volume] in Serum or PlasmaOrdered By: Dominic Ryder on 01-02-2025 ALP [Catalytic activity/Vol] 59 U/L Normal 34-104 [facility] [place] Comment on above: Performed By: #### M G, HS TROP, DDIMER, TSH3, CMP, BNP, CBC, [id number], PTT, PT #### [facility] [address] [place] [address] [place] Aspartate aminotransferase [ Enzymatic activity/volume] in Serum or PlasmaOrdered By: Dominic Ryder on 01-02-2025 AST [Catalytic activity/Vol] 13 U/L Normal 13-39 [facility] [place] Comment on above: Performed By: #### M G, HS TROP, DDIMER, TSH3, CMP, BNP, CBC, [id number], PTT, PT #### [facility] [address] BNP ser/plasOrdered By: Skylar Ryder on 01-02-2025 Natriuretic peptide B (Bld) [Mass/Vol] 44.0 pg/mL Normal 5-100 [facility] [place] Comment on above: Result Comment: PERF ORMED BY: [place] [id number] PATHOLOGIST [employer] KELVIN HOLMAN M.D. Performed By: #### M G, HS TROP, DDIMER, TSH3, CMP, BNP, CBC, [id number], PTT, PT #### [address] Basophils [#/volume] in Bloo d by Automated countOrdered By: Dominic Ryder on 01-02-2025 Basophils (Bld) [#/Vol] 0.1 10*3/uL Normal 0.0-0.2 [facility] Comment on above: Result Comment: PERF ORMED BY: [place] [address] PATHOLOGIST MARKETING SENIOR RECRUITER KELVIN HOLMAN M.D. Performed By: #### M G, HS TROP, DDIMER, TSH3, CMP, BNP, CBC, [id number], PTT, PT #### [address] Basophils/100 leukocytes in Blood by Automated countOrdered By: Dominic Ryder on 01-02-2025 Basophils/100 WBC (Bld) 0.4 % Normal . [facility] Comment on above: Performed By: #### M G, HS TROP, DDIMER, TSH3, CMP, BNP, CBC, [id number], PTT, PT #### [address] Bilirubin.total [Mass/volume ] in Serum or PlasmaOrdered By: Dominic Ryder on 01-02-2025 Bilirubin [Mass/Vol] 0.6 mg/dL Normal 0.3-1.0 [facility] Comment on above: Performed By: #### M G, HS TROP, DDIMER, TSH3, CMP, BNP, CBC, [id number], PTT, PT #### [address] Blood Cultureon 01-02-2025 Bacteria identified Cx Nom (Bld) NO GROWTH 5 DAYS PERFORMED BY: [place] [id number] PATHOLOGIST MARKETING SENIOR RECRUITER KELVIN HOLMAN M.D. Normal [facility] Comment on above: Performed By: #### M G, HS TROP, DDIMER, TSH3, CMP, BNP, CBC, [id number], PTT, PT #### [facility] [address] Bacteria identified Cx Nom (Bld) NO GROWTH 5 DAYS PERFORMED BY: [facility] [address] [place] [address] PATHOLOGIST MARKETING SENIOR RECRUITER KELVIN HOLMAN M.D. Normal [facility] Comment on above: Performed By: #### M G, HS TROP, DDIMER, TSH3, CMP, BNP, CBC, [id number], PTT, PT #### [facility] [address] [place], [place] [address] [place] CBC W Auto Differential pane l (Bld)on 01-02-2025 Basophils (Bld) [#/Vol] 0.04 10*3/uL Normal <0.11 [facility] Comment on above: Order Comment: Speci men Type: BLOOD SPECIMENOrdering Facility: [facility] Address: [address] [place] [address] Performed By: #### 5 7021-8 ####[facility] LABCLIA [id number] [place] [address] Basophils/100 WBC (Bld) 0.3 % Normal [facility] Comment on above: Order Comment: Speci men Type: BLOOD SPECIMENOrdering Facility: [facility] Address: [address] [place] [address] Performed By: #### 5 7021-8 ####[facility] LABCLIA [id number] [place] [address] Differential cell count method Nom (Bld) Auto Normal [facility] Comment on above: Order Comment: Speci men Type: BLOOD SPECIMENOrdering Facility: [facility] Address: [address] [place] [address] Performed By: #### 5 7021-8 ####[facility] LABCLIA [id number] [place] [address] Eosinophils (Bld) [#/Vol] 0.52 10*3/uL High <0.46 [facility] Comment on above: Order Comment: Speci men Type: BLOOD SPECIMENOrdering Facility: [facility] Address: [address] [place] [address] Performed By: #### 5 7021-8 ####[facility] LABCLIA [id number] [place] [address] Eosinophils/100 WBC (Bld) 3.8 % Normal [facility] Comment on above: Order Comment: Speci men Type: BLOOD SPECIMENOrdering Facility: [facility] Address: [address] [place] [address] Performed By: #### 5 7021-8 ####[facility] LABCLIA [id number] [place] [address] Erythrocyte distribution width (RBC) [Ratio] 14.6 % Normal 11.5-15.0 [facility] Comment on above: Order Comment: Speci men Type: BLOOD SPECIMENOrdering Facility: [facility] Address: [address] [place] [address] Performed By: #### 5 7021-8 ####[facility] LABCLIA [id number] [place] [address] Hematocrit (Bld) [Volume fraction] 34.0 % Low 39.0-51.0 [facility] Comment on above: Order Comment: Speci men Type: BLOOD SPECIMENOrdering Facility: [facility] Address: [address] [place] [address] Performed By: #### 5 7021-8 ####[facility] LABCLIA [id number] [place] [address] Hemoglobin (Bld) [Mass/Vol] 10.5 g/dL Low 13.0-17.0 [facility] Comment on above: Order Comment: Speci men Type: BLOOD SPECIMENOrdering Facility: [facility] Address: [address] [place] [address] Performed By: #### 5 7021-8 ####[facility] LABCLIA [id number] [place] [address] Immature granulocytes (Bld) [#/Vol] 0.09 10*3/uL Normal <0.10 [facility] Comment on above: Order Comment: Speci men Type: BLOOD SPECIMENOrdering Facility: [facility] Address: [address] [place] [address] Performed By: #### 5 7021-8 ####[facility] LABCLIA [id number] [place] [address] Immature granulocytes/100 WBC (Bld) 0.7 % Normal [facility] Comment on above: Order Comment: Speci men Type: BLOOD SPECIMENOrdering Facility: [facility] Address: [address] [place] [address] Performed By: #### 5 7021-8 ####[facility] LABCLIA [id number] [place] [address] Lymphocytes (Bld) [#/Vol] 1.21 10*3/uL Normal 1.00-4.00 [facility] Comment on above: Order Comment: Speci men Type: BLOOD SPECIMENOrdering Facility: [facility] Address: [address] [place] [address] Performed By: #### 5 7021-8 ####[facility] LABCLIA [id number] [place] [address] Lymphocytes/100 WBC (Bld) 8.9 % Normal [facility] Comment on above: Order Comment: Speci men Type: BLOOD SPECIMENOrdering Facility: [facility] Address: [address] [place] [address] Performed By: #### 5 7021-8 ####[facility] LABCLIA [id number] [place] [address] MCH (RBC) [Entitic mass] 26.6 pg Normal 26.0-34.0 [facility] Comment on above: Order Comment: Speci men Type: BLOOD SPECIMENOrdering Facility: [facility] Address: [address] [place] [address] Performed By: #### 5 7021-8 ####[facility] LABCLIA [id number] [place] [address] MCHC (RBC) [Mass/Vol] 30.9 g/dL Normal 30.5-36.0 [facility] Comment on above: Order Comment: Speci men Type: BLOOD SPECIMENOrdering Facility: [facility] Address: [address] [place] [address] Performed By: #### 5 7021-8 ####[facility] LABCLIA [id number] [place] [address] MCV (RBC) [Entitic vol] 86.1 fL Normal 80.0-100.0 [facility] Comment on above: Order Comment: Speci men Type: BLOOD SPECIMENOrdering Facility: [facility] Address: [address] [place] [address] Performed By: #### 5 7021-8 ####[facility] LABCLIA [id number] [place] [address] Monocytes (Bld) [#/Vol] 0.63 10*3/uL Normal <0.87 [facility] Comment on above: Order Comment: Speci men Type: BLOOD SPECIMENOrdering Facility: [facility] Address: [address] [place] [address] Performed By: #### 5 7021-8 ####[facility] LABCLIA [id number] [place] [address] Monocytes/100 WBC (Bld) 4.6 % Normal [facility] Comment on above: Order Comment: Speci men Type: BLOOD SPECIMENOrdering Facility: [facility] Address: [address] [place] [address] Performed By: #### 5 7021-8 ####[facility] LABCLIA [id number] [place] [address] Neutrophils (Bld) [#/Vol] 11.15 10*3/uL High 1.45-7.50 [facility] Comment on above: Order Comment: Speci men Type: BLOOD SPECIMENOrdering Facility: [facility] Address: [address] [place] [address] Performed By: #### 5 7021-8 ####[facility] LABCLIA [id number] [place] [address] Neutrophils/100 WBC (Bld) 81.7 % Normal [facility] Comment on above: Order Comment: Speci men Type: BLOOD SPECIMENOrdering Facility: [facility] Address: [address] [place] [address] Performed By: #### 5 7021-8 ####[facility] LABCLIA [id number] [place] [address] Nucleated RBC (Bld) [#/Vol] 10*3/uL Normal <0.01 [facility] Comment on above: Order Comment: Speci men Type: BLOOD SPECIMENOrdering Facility: [facility] Address: [address] [place] [address] Performed By: #### 5 7021-8 ####[facility] LABCLIA [id number] [place] [address] Nucleated RBC/100 WBC (Bld) [Ratio] 0.0 /100 WBC Normal [facility] Comment on above: Order Comment: Speci men Type: BLOOD SPECIMENOrdering Facility: [facility] Address: [address] [place] [address] Performed By: #### 5 7021-8 ####[facility] LABCLIA [id number] [place] [address] Platelet mean volume (Bld) [Entitic vol] 9.3 fL Normal 9.0-12.7 [facility] Comment on above: Order Comment: Speci men Type: BLOOD SPECIMENOrdering Facility: [facility] Address: [address] [place] [address] Performed By: #### 5 7021-8 ####[facility] LABCLIA [id number] [place] [address] Platelets (Bld) [#/Vol] 312 10*3/uL Normal 150-400 [facility] Comment on above: Order Comment: Speci men Type: BLOOD SPECIMENOrdering Facility: [facility] Address: [address] [place] [address] Performed By: #### 5 7021-8 ####[facility] LABIA [id number] [place] [address] RBC (Bld) [#/Vol] 3.95 10*6/uL Low 4.20-6.00 [facility] Comment on above: Order Comment: Speci men Type: BLOOD SPECIMENOrdering Facility: [facility] Address: [address] [place] [address] Performed By: #### 5 7021-8 ####[facility] LABIA [id number] [place] [address] WBC (Bld) [#/Vol] 13.64 10*3/uL High 3.70-11.00 [facility] Comment on above: Order Comment: Speci men Type: BLOOD SPECIMENOrdering Facility: [facility] Address: [address] [place] [address] Performed By: #### 5 7021-8 ####[facility] LABIA [id number] [place] [address] CNOVSPon 01-02-2025 CNOVSP Normal [facility] CT angio chest PE protocolon 01-02-2025 CT angio chest PE protocol [address] [place] [address] CT Scan Report Signed Patient: Jatin Koch II MR#: [id number] : 1960 Acct:[id number] Age/Sex: 64 / M ADM Date: 01/02/25 Loc: Room: 9M8413-6 Type: ADM IN Attending Dr: Norah Whittaker [...] Mccann M.D. 01/02/2025 7:42 PM Dictation Location: [place] [address] Transcribed By: [facility] 01/02/251941 Dictated By: Kirk Mccann DO 01/02/251935 Signed By: 01/02/251941 Normal [facility] CT head/brain wo nanoon 01-02 CT head/brain wo con [facility] Main [place] [address] [place] [address] CT Scan Report Signed Patient: Jatin Koch II MR#: [id number] : 1960 Acct:[id number] Age/Sex: 64 / M ADM Date: 01/02/25 Loc: ER Room: Type: [facility] ER Attending Dr: Copies to: Dominic [...] Mccann M.D. 01/02/2025 3:04 PM Dictation Location: [place] [address] Transcribed By: [facility] 01/02/25 1504 Dictated By: Kirk Mccann DO 01/02/25 1503 Signed By: 01/02/25 150 Normal [facility] Calcium [Mass/volume] in Ser um or PlasmaOrdered By: Dominic Ryder on 01-02-2025 Calcium [Mass/Vol] 8.3 mg/dL Low 8.6-10.3 [facility] Comment on above: Performed By: #### M G, HS TROP, DDIMER, TSH3, CMP, BNP, CBC, [id number], PTT, PT #### [facility] [address] Carbon dioxide, total [Moles /volume] in Serum or PlasmaOrdered By: Dominic Ryder on 01-02-2025 CO2 [Moles/Vol] 19.4 mmol/L Low 21.0-31.0 [facility] Comment on above: Performed By: #### M G, HS TROP, DDIMER, TSH3, CMP, BNP, CBC, [id number], PTT, PT #### [facility] [address] Chloride [Moles/volume] in S karishma or PlasmaOrdered By: Dominic Ryder on 01-02-2025 Chloride [Moles/Vol] 107 mmol/L Normal 98-107 [facility] Comment on above: Performed By: #### M G, HS TROP, DDIMER, TSH3, CMP, BNP, CBC, [id number], PTT, PT #### [address] Complete Blood Count Auto Di ffon 01-02-2025 Mean Corpuscular HGB Conc 32.0 g/dL Low 32.5-35.6 [facility] Comment on above: Performed By: #### M G, HS TROP, DDIMER, TSH3, CMP, BNP, CBC, [id number], PTT, PT #### [address] Monocytes/100 WBC (Bld) 24.21 % High 0.00-20.00 [facility] Comment on above: Result Comment: For adults in ED, MDW > 20.0 may be associated with a higher risk of sepsis during the first 12 hrs of hospital admission Performed By: #### M G, HS TROP, DDIMER, TSH3, CMP, BNP, CBC, [id number], PTT, PT #### [address] NRBC% 0.0 /100{WBC} Normal 0-0.5 [facility] Comment on above: Performed By: #### M G, HS TROP, DDIMER, TSH3, CMP, BNP, CBC, [id number], PTT, PT #### [facility] [address] White Blood Count 15.5 [CFU]/mL High 4.1-10.5 [facility] Comment on above: Performed By: #### M G, HS TROP, DDIMER, TSH3, CMP, BNP, CBC, [id number], PTT, PT #### [facility] [address] Comprehensive Metabolic Pane paul 01-02-2025 Albumin [Mass/Vol] 3.0 g/dL Low 3.5-5.7 [facility] Comment on above: Performed By: #### M G, HS TROP, DDIMER, TSH3, CMP, BNP, CBC, [id number], PTT, PT #### [address] Creatinine Clr Calc Pharmacy 99.34 Normal [facility] Comment on above: Performed By: #### M G, HS TROP, DDIMER, TSH3, CMP, BNP, CBC, [id number], PTT, PT #### [address] GFR/1.73 sq M.predicted MDRD (S/P/Bld) [Vol rate/Area] mL/min/{1.73_m2} Normal [facility] Comment on above: Performed By: #### M G, HS TROP, DDIMER, TSH3, CMP, BNP, CBC, [id number], PTT, PT #### [facility] [address] Comprehensive metabolic 2000 panelon 01-02-2025 Albumin [Mass/Vol] 3.6 g/dL Low 3.9-4.9 [facility] Comment on above: Order Comment: Speci men Type: BLOOD SPECIMENOrdering Facility: [facility] Address: [address] [place] [address] Performed By: #### 2 4323-8, ####[facility] LABCLIA [id number] [place] [address] ALP [Catalytic activity/Vol] 75 U/L Normal 38-113 [facility] Comment on above: Order Comment: Speci men Type: BLOOD SPECIMENOrdering Facility: [facility] Address: [address] [place] [address] Performed By: #### 2 4323-8, ####[facility] LABCLIA [id number] [place] [address] ALT [Catalytic activity/Vol] 12 U/L Normal 10-54 [facility] Comment on above: Order Comment: Speci men Type: BLOOD SPECIMENOrdering Facility: [facility] Address: [address] [place] [address] Performed By: #### 2 4323-8, ####[facility] LABCLIA [id number] [place] [address] Anion gap [Moles/Vol] 12 mmol/L Normal 8-15 [facility] Comment on above: Order Comment: Speci men Type: BLOOD SPECIMENOrdering Facility: [facility] Address: [address] [place] [address] Performed By: #### 2 4323-8, ####[facility] LABCLIA [id number] [place] [address] AST [Catalytic activity/Vol] 12 U/L Low 14-40 [facility] Comment on above: Order Comment: Speci men Type: BLOOD SPECIMENOrdering Facility: [facility] Address: [address] [place] [address] Performed By: #### 2 4323-8, ####[facility] LABCLIA [id number] [place] [address] Bilirubin [Mass/Vol] 0.3 mg/dL Normal 0.2-1.3 [facility] Comment on above: Order Comment: Speci men Type: BLOOD SPECIMENOrdering Facility: [facility] Address: [address] [place] [address] Performed By: #### 2 4323-8, ####[facility] LABCLIA [id number] [place] [address] Calcium [Mass/Vol] 9.6 mg/dL Normal 8.5-10.2 [facility] Comment on above: Order Comment: Speci men Type: BLOOD SPECIMENOrdering Facility: [facility] Address: [address] [place], [place] [address] Performed By: #### 2 4323-8, ####[facility] LABCLIA [id number] [place] [address] Chloride [Moles/Vol] 100 mmol/L Normal 98-107 [facility] Comment on above: Order Comment: Speci men Type: BLOOD SPECIMENOrdering Facility: [facility] Address: [address] [place] [address] Performed By: #### 2 4323-8, ####[facility] LABCLIA [id number] [place] [address] CO2 [Moles/Vol] 22 mmol/L Normal 22-30 [facility] Comment on above: Order Comment: Speci men Type: BLOOD SPECIMENOrdering Facility: [facility] Address: [address] [place] [address] Performed By: #### 2 4323-8, ####[facility] LABCLIA [id number] [place] [address] Creatinine [Mass/Vol] 0.77 mg/dL Normal 0.73-1.22 [facility] Comment on above: Order Comment: Speci men Type: BLOOD SPECIMENOrdering Facility: [facility] Address: [address] [place] [address] Performed By: #### 2 4323-8, ####[facility] LABCLIA [id number] [place] [address] eGFRcr SerPlBld CKD-EPI 2020 101 mL/min/1.73m??? Normal >=60 [facility] Comment on above: Order Comment: Speci della Type: BLOOD SPECIMENOrdering Facility: [facility] Address: [address] [place] [address] Result Comment: Carly mated Glomerular Filtration Rate [...] actual GFR. Performed By: #### 2 4323-8, ####[facility] LABCLIA [id number] [place] [address] Glucose [Mass/Vol] 104 mg/dL High 74-99 [facility] Comment on above: Order Comment: Ange hull Type: BLOOD SPECIMENOrdering Facility: [facility] Address: [address] [place] [address] Result Comment: The [place] Diabetes Association (ADA) provides guidance for cutoff [...] Standards of Medical Care in Diabetes 2016, [place] Diabetes Association. Diabetes Care. 2016.39(Suppl 1). Performed By: #### 2 4323-8, 33149-9 ####[facility] LABCLIA [id number] [place] [address] Potassium [Moles/Vol] 3.6 mmol/L Low 3.7-5.1 [facility] Comment on above: Order Comment: Speci men Type: BLOOD SPECIMENOrdering Facility: [facility] Address: [address] [place], [place] [id number] Performed By: #### 2 4323-8, ####[facility] LABCLIA [id number] [place] [address] Protein [Mass/Vol] 7.2 g/dL Normal 6.3-8.0 [facility] Comment on above: Order Comment: Speci men Type: BLOOD SPECIMENOrdering Facility: [facility] Address: [address] [place] [address] Performed By: #### 2 4323-8, ####[facility] LABCLIA [id number] [place] [address] Sodium [Moles/Vol] 134 mmol/L Low 136-144 [facility] Comment on above: Order Comment: Speci men Type: BLOOD SPECIMENOrdering Facility: [facility] Address: [address] [place] [address] Performed By: #### 2 432-8, ####[facility] LABCLIA [id number] [place] [address] Urea nitrogen [Mass/Vol] 9 mg/dL Normal 9-24 [facility] Comment on above: Order Comment: Speci men Type: BLOOD SPECIMENOrdering Facility: [facility] Address: [address] [place] [address] Performed By: #### 2 4323-8, ####[facility] LABCLIA [id number] [place] [address] Creatinine [Mass/volume] in Serum or PlasmaOrdered By: Dominic Ryder on 01-02-2025 Creatinine [Mass/Vol] 0.79 mg/dL Normal 0.70-1.30 [facility] Comment on above: Performed By: #### M G, HS TROP, DDIMER, TSH3, CMP, BNP, CBC, [id number], PTT, PT #### [place] [id number] [place] D-Dimer High Sensitivityon 0 01-02-2025 D-Dimer High Sensitivity 1250 ng/mL High 0-243 [facility] Comment on above: Result [...] coagulation studies. Please contact the laboratory at [phone] for redraw instructions. PERFORMED BY: [place] [address] PATHOLOGIST MARKETING SENIOR RECRUITER KELVIN HOLMAN M.D. Performed By: #### M G, HS TROP, DDIMER, TSH3, CMP, BNP, CBC, [id number], PTT, PT #### [place] [id number] [facility] ECG 12 lead ECGon 01-02-2025 ECG 12 lead ECG [facility] [place] [address] Electrocardiograph Report Signed Patient: Jatin Koch II MR#: [id number] : 1960 Acct:[id number] Age/Sex: 64 / M ADM Date: 01/02/25 Loc: ER Room: Type: [facility] ER Attending Dr: Ordering Provider: Dominic [...] ventricular-paced rhythm Confirmed by Home RUSSO DO ([id number]) on 01/02/2025 4:39:33 PM Referred By: Electronically Signed By: Home RUSSO DO Transcribed By: MUS Signed By Home Russo DO 0 01/02/25 1639 Normal [facility] Eosinophils [#/volume] in Bl ood by Automated countOrdered By: Dominic Ryder on 01-02-2025 Eosinophils (Bld) [#/Vol] 0.1 10*3/uL Normal 0.0-0.45 [facility] Comment on above: Performed By: #### M G, HS TROP, DDIMER, TSH3, CMP, BNP, CBC, [id number], PTT, PT #### [facility] [address] [place] [address] Eosinophils/100 leukocytes i n Blood by Automated countOrdered By: Dominic Ryder on 01-02-2025 Eosinophils/100 WBC (Bld) 1.0 % Normal . [facility] Comment on above: Performed By: #### M G, HS TROP, DDIMER, TSH3, CMP, BNP, CBC, [id number], PTT, PT #### [facility] [address] Erythrocyte distribution wid th [Ratio] by Automated countOrdered By: Dominic Ryder on 01-02-2025 Erythrocyte distribution width (RBC) [Ratio] 15.7 % High 12.0-14.8 [facility] Comment on above: Performed By: #### M G, HS TROP, DDIMER, TSH3, CMP, BNP, CBC, [id number], PTT, PT #### [facility] [address] Erythrocytes [#/volume] in B lood by Automated countOrdered By: Dominic Ryder on 01-02-2025 RBC (Bld) [#/Vol] 3.83 10*6/uL Low 3.90-5.60 [facility] Comment on above: Performed By: #### M G, HS TROP, DDIMER, TSH3, CMP, BNP, CBC, [id number], PTT, PT #### [facility] [address] Fibrin D-dimer [Presence] in Platelet poor plasma by Latex agglutinationOrdered By: Dominic Ryder on 01-02-2025 Fibrin D-dimer LA Ql (PPP) 1250 ng/mL High 0-243 [facility] Comment on above: The reference range for [...] coagulation studies. Please contact the laboratory at [phone] for redraw instructions. Folate [Mass/volume] in Seru m or PlasmaOrdered By: Dominic Ryder on 01-02-2025 Folate [Mass/Vol] 29.0 ng/mL >5.9 [facility] Comment on above: Folate reference ran ge: >5.9 ng/mlThe WHO technical consultation on folate and vitamin e18fzktwzsscoee has determined that folate concentrations lessthan 4 ng/ml are considered deficient. Glucose [Mass/volume] in Ser um or PlasmaOrdered By: Dominic Ryder on 01-02-2025 Glucose [Mass/Vol] 107 mg/dL High 70-100 [facility] Comment on above: ADA recommended refe rence rangeRandom Glucose Reference Range is dependent on time and content of last meal. Glucose of more than 200 mg/dL in a nonstressed, ambulatory subject supports the diagnosis of Diabetes Mellitus. Result Comment: [place] Glucose Reference Range is dependent on time and content of last meal. Glucose of more than 200 mg/dL in a nonstressed, ambulatory subject supports the diagnosis of Diabetes Mellitus. ADA recommended reference range Performed By: #### M G, HS TROP, DDIMER, TSH3, CMP, BNP, CBC, [id number], PTT, PT #### [facility] [facility] [address] Hematocrit [Volume Fraction] of Blood by Automated countOrdered By: Dominic Ryder on 01-02-2025 Hematocrit (Bld) [Volume fraction] 32.0 % Low 38.8-50.0 [facility] [place] Comment on above: Performed By: #### M G, HS TROP, DDIMER, TSH3, CMP, BNP, CBC, [id number], PTT, PT #### [address] Hemoglobin [Mass/volume] in BloodOrdered By: Dominic Ryder on 01-02-2025 Hemoglobin (Bld) [Mass/Vol] 10.3 g/dL Low 13.0-17.0 [facility] [place] Comment on above: Performed By: #### M G, HS TROP, DDIMER, TSH3, CMP, BNP, CBC, [id number], PTT, PT #### [address] INR in Platelet poor plasma by Coagulation assayOrdered By: Dominic Ryder on 01-02-2025 INR Coag (PPP) [Relative time] 1.5 {INR} Normal [facility] [place] Comment on above: INR Therapeutic Rang e [...] HS TROP, DDIMER, TSH3, CMP, BNP, CBC, [id number], PTT, PT #### [facility] [address] [place] [address] Laboratory - Microbiology an d Antimicrobial susceptibilityOrdered By: Norah Whittaker on 01-02-2025 Bacteria identified Cx Nom (Bld) NO GROWTH 5 DAYS [facility] [place] Bacteria identified Cx Nom (Bld) NO GROWTH 5 DAYS [facility] Leukocytes [#/volume] correc abe for nucleated erythrocytes in Blood by Automated counOrdered By: Dominic Ryder on 01-02-2025 WBC corrected for nucl RBC Auto (Bld) [#/Vol] 15.5 10*3/uL High 4.1-10.5 [facility] [place] Leukocytes [#/volume] in Blo od by Automated countOrdered By: Dominic Ryder on 01-02-2025 WBC (Bld) [#/Vol] 15.5 10*3/uL High 4.1-10.5 [facility] Comment on above: Performed By: #### M G, HS TROP, DDIMER, TSH3, CMP, BNP, CBC, [id number], PTT, PT #### [facility] [address] [place] [address] [place] Lymphocytes [#/volume] in Bl ood by Automated countOrdered By: Dominic Ryder on 01-02-2025 Lymphocytes (Bld) [#/Vol] 0.4 10*3/uL Low 1.00-4.8 [facility] [place] Comment on above: Performed By: #### M G, HS TROP, DDIMER, TSH3, CMP, BNP, CBC, [id number], PTT, PT #### [facility] [address] [place] [address] [place] Lymphocytes/100 leukocytes i n Blood by Automated countOrdered By: Dominic Ryder on 01-02-2025 Lymphocytes/100 WBC (Bld) 2.3 % Normal . [facility] [place] Comment on above: Performed By: #### M G, HS TROP, DDIMER, TSH3, CMP, BNP, CBC, [id number], PTT, PT #### [facility] [address] [place] [id number] [facility] MCH [Entitic mass] by Automa abe countOrdered By: Dominic Ryder on 01-02-2025 MCH (RBC) [Entitic mass] 26.8 pg Low 27.5-35.2 [facility] [place] Comment on above: Performed By: #### M G, HS TROP, DDIMER, TSH3, CMP, BNP, CBC, [id number], PTT, PT #### [facility] [address] MCHC Auto (RBC) [Mass/Vol]Or dered By: Dominic Ryder on 01-02-2025 MCHC (RBC) [Mass/Vol] 32.0 g/dL Low 32.5-35.6 [facility] MCV [Entitic volume] by Auto mated countOrdered By: Dominic Ryder on 01-02-2025 MCV (RBC) [Entitic vol] 83.6 fL Normal 83.5-101 [facility] Comment on above: Performed By: #### M G, HS TROP, DDIMER, TSH3, CMP, BNP, CBC, [id number], PTT, PT #### [facility] [address] Magnesium SerPl-mCncon 01-02 Magnesium [Mass/Vol] 1.8 mg/dL Normal 1.7-2.3 [facility] Comment on above: Order Comment: Speci men Type: BLOOD SPECIMENOrdering Facility: [facility] Address: [address] [place] [address] Performed By: #### 2 4323-8, 11224-2 ####[facility] LABCLIA [id number] [place] [address] Magnesium [Mass/volume] in S karishma or PlasmaOrdered By: Dominic Ryder on 01-02-2025 Magnesium [Mass/Vol] 1.5 mg/dL Low 1.9-2.7 [facility] Comment on above: Result Comment: PERF ORMED BY: [place] [address] PATHOLOGIST MARKETING SENIOR RECRUITER KELVIN HOLMAN M.D. Performed By: #### M G, HS TROP, DDIMER, TSH3, CMP, BNP, CBC, [id number], PTT, PT #### [facility] [address] [place] [address] [place] Monocyte distribution width [Entitic volume] in Blood by AutomatedOrdered By: Dominic Ryder on 01-02-2025 Monocyte distribution width Auto (Bld) [Entitic vol] 24.21 % High 0.00-20.00 [facility] [place] Comment on above: For adults in ED, MD W > 20.0 may be associated with a higher risk of sepsis during the first 12 hrs of hospital admission Monocytes [#/volume] in Bloo d by Automated countOrdered By: Dominic Ryder on 01-02-2025 Monocytes (Bld) [#/Vol] 0.4 10*3/uL Normal 0.0-0.8 [facility] [place] Comment on above: Performed By: #### M G, HS TROP, DDIMER, TSH3, CMP, BNP, CBC, [id number], PTT, PT #### [facility] [address] [place] [address] Monocytes/100 leukocytes in Blood by Automated countOrdered By: Dominic Ryder on 01-02-2025 Monocytes/100 WBC (Bld) 2.4 % Normal . [facility] Comment on above: Performed By: #### M G, HS TROP, DDIMER, TSH3, CMP, BNP, CBC, [id number], PTT, PT #### [facility] [address] [place] [address] [place] Neutrophils [#/volume] in Bl ood by Automated countOrdered By: Dominic Ryder on 01-02-2025 Neutrophils (Bld) [#/Vol] 14.5 10*3/uL High 1.8-7.7 [facility] [place] Comment on above: Performed By: #### M G, HS TROP, DDIMER, TSH3, CMP, BNP, CBC, [id number], PTT, PT #### [facility] [address] [place] [address] [place] Neutrophils/100 leukocytes i n Blood by Automated countOrdered By: Dominic Ryder on 01-02-2025 Neutrophils/100 WBC (Bld) 93.9 % Normal . [facility] [place] Comment on above: Performed By: #### M G, HS TROP, DDIMER, TSH3, CMP, BNP, CBC, [id number], PTT, PT #### [facility] [address] No Panel InformationOrdered By: Dominic Ryder on 01-02-2025 Estimated GFR (CKD-EPI) > 60.0 mL/Min [facility] Pharmacy Creatinine Clearance (Chem 99.34 [facility] Nucleated erythrocytes [Pres ence] in Blood by Automated countOrdered By: Dominic Ryder on 01-02-2025 Nucleated RBC Auto Ql (Bld) 0.0 /100{WBC} 0-0.5 [facility] Partial Thromboplastin Timeo n 01-02-2025 aPTT Coag (Bld) [Time] 26.1 s Normal 25.1-36.5 Th e [facility] Comment on above: Result Comment: A he matocrit value greater than 55% may lead to inaccurate results in coagulation testing. Patients having hematocrit values >55% require a special collection tube for coagulation studies. Please contact the laboratory at [phone] for redraw instructions. Performed By: #### M G, HS TROP, DDIMER, TSH3, CMP, BNP, CBC, [id number], PTT, PT #### [facility] [address] [place] [phone] [facility] Platelet mean volume [Entiti c volume] in Blood by Automated countOrdered By: Dominic Ryder on 01-02-2025 Platelet mean volume (Bld) [Entitic vol] 7.9 fL Normal 6.6-10.1 [facility] Comment on above: Performed By: #### M G, HS TROP, DDIMER, TSH3, CMP, BNP, CBC, [id number], PTT, PT #### [facility] [address] Platelets [#/volume] in Bloo d by Automated countOrdered By: Dominic Ryder on 01-02-2025 Platelets (Bld) [#/Vol] 249 10*3/uL Normal 150-450 [facility] Comment on above: Performed By: #### M G, HS TROP, DDIMER, TSH3, CMP, BNP, CBC, [id number], PTT, PT #### [facility] [address] Potassium [Moles/volume] in Serum or PlasmaOrdered By: Dominic Ryder on 01-02-2025 Potassium [Moles/Vol] 3.7 mmol/L Normal 3.5-5.1 [facility] Comment on above: Performed By: #### M G, HS TROP, DDIMER, TSH3, CMP, BNP, CBC, [id number], PTT, PT #### [address] Protein [Mass/volume] in Ser um or PlasmaOrdered By: Dominic Ryder on 01-02-2025 Protein [Mass/Vol] 6.0 g/dL Low 6.4-8.9 [facility] Comment on above: Performed By: #### M G, HS TROP, DDIMER, TSH3, CMP, BNP, CBC, [id number], PTT, PT #### [facility] [address] [place] [phone] [facility] Prothrombin time (PT)Ordered By: Dominic Ryder on 01-02-2025 PT Coag (PPP) [Time] 17.1 s High 9.0-12.9 [facility] Comment on above: A hematocrit value g reater than 55% may lead to inaccurate results in coagulation testing. Patients having hematocrit values >55% require a special collection tube for coagulation studies. Please contact the laboratory at [phone] for redraw instructions. Result Comment: A he matocrit value greater than 55% may lead to inaccurate results in coagulation testing. Patients having hematocrit values >55% require a special collection tube for coagulation studies. Please contact the laboratory at [phone] for redraw instructions. Performed By: #### M G, HS TROP, DDIMER, TSH3, CMP, BNP, CBC, [id number], PTT, PT #### [facility] [address] Serum globulin measurement b y calculation (mass/volume)Ordered By: Dominic Ryder on 01-02-2025 Globulin (S) [Mass/Vol] 3.0 g/dL Normal [facility] Comment on above: Performed By: #### M G, HS TROP, DDIMER, TSH3, CMP, BNP, CBC, [id number], PTT, PT #### [facility] [address] Serum or plasma albumin/glob ulin mass ratioOrdered By: Dominic Ryder on 01-02-2025 Albumin/Globulin [Mass ratio] 1.0 {ratio} Normal [facility] [place] Comment on above: Performed By: #### M G, HS TROP, DDIMER, TSH3, CMP, BNP, CBC, [id number], PTT, PT #### [facility] [address] [place] [address] Serum or plasma anion gap de terminationOrdered By: Dominic Ryder on 01-02-2025 Anion gap [Moles/Vol] 11.3 mmol/L Normal 6.0-15.0 [facility] Comment on above: Performed By: #### M G, HS TROP, DDIMER, TSH3, CMP, BNP, CBC, [id number], PTT, PT #### [facility] [address] [place] [address] Sodium [Moles/volume] in Ser um or PlasmaOrdered By: Dominic Ryder on 01-02-2025 Sodium [Moles/Vol] 134 mmol/L Low 136-145 [facility] Comment on above: Performed By: #### M G, HS TROP, DDIMER, TSH3, CMP, BNP, CBC, [id number], PTT, PT #### [address] Thyrotropin [Units/volume] i n Serum or PlasmaOrdered By: Dominic Ryder on 01-02-2025 TSH Qn 0.92 m[IU]/L Normal 0.45-5.33 [facility] Comment on above: Result Comment: PERF ORMED BY: [place] [address] PATHOLOGIST MARKETING SENIOR RECRUITER KELVIN HOLMAN M.D. Performed By: #### M G, HS TROP, DDIMER, TSH3, CMP, BNP, CBC, [id number], PTT, PT #### [facility] [address] [place] [address] [place] Troponin I High Sensitivityo n 01-02-2025 Troponin I High Sensitivity 6 Normal 0-20 [facility] Comment on above: Result Comment: The Troponin units of report have been changed to meet the Chest Pain Accreditation requirement, element EC5.M1l2. Troponin units are changed from pg/ml to ng/L. Also, the decimal is removed and results are in whole numbers. PERFORMED BY: [place] [address] PATHOLOGIST MARKETING SENIOR RECRUITER KELVIN HOLMAN M.D. Performed By: #### M G, HS TROP, DDIMER, TSH3, CMP, BNP, CBC, [id number], PTT, PT #### [facility] [address] [place] [address] [place] Troponin I.cardiac [Mass/vol ume] in Serum or Plasma by Detection limit <= 0.01 ng/mLOrdered By: Dominic Ryedr on 01-02-2025 Troponin I.cardiac DL <= 0.01 ng/mL [Mass/Vol] 6 ng/L 0-20 [facility] Comment on above: The Troponin units o f report have been changed to meet the Chest Pain Accreditation requirement, element EC5.M1l2. Troponin units are changed from pg/ml to ng/L. Also, the decimal is removed and results are in whole numbers. Urea nitrogen [Mass/volume] in Serum or PlasmaOrdered By: Dominic Ryder on 01-02-2025 Urea nitrogen [Mass/Vol] 12 mg/dL Normal 7-25 [facility] Comment on above: Performed By: #### M G, HS TROP, DDIMER, TSH3, CMP, BNP, CBC, [id number], PTT, PT #### [facility] [address] Vit. B12/Folate Profileon Folate 29.0 ng/mL Normal >5.9 [facility] Comment on above: Result Comment: Sally te reference range: >5.9 ng/ml The WHO technical consultation on folate and vitamin b12 deficiencies has determined that folate concentrations less than 4 ng/ml are considered deficient. Performed By: #### M G, HS TROP, DDIMER, TSH3, CMP, BNP, CBC, [id number], PTT, PT #### [facility] [address] Vitamin B12 ser/plasOrdered By: Dominic Ryder on 01-02-2025 Cobalamin (Vitamin B12) [Mass/Vol] 626 pg/mL Normal 180-914 [facility] Comment on above: Performed By: #### M G, HS TROP, DDIMER, TSH3, CMP, BNP, CBC, [id number], PTT, PT #### [facility] [address] X-ray reportOrdered By: Rafael Mccann on 01-02-2025 Study report [facility] [place] [address] [place] [address] XRay Report Signed Patient: Jatin Koch II MR#: [id number] : 1960 Acct:[id number] Age/Sex: 64 / M ADM Date: 5 Loc: ER Room: Type: [facility] ER Attending Dr: Copies to: Dominic [...] DO 01/02/25 1459 Signed By: 01/02/25 1501 [facility] XR chest 1V portableon 01-02 XR chest 1V portable [facility] Main [place] [address] [place] [address] XRay Report Signed Patient: Jatin Koch II MR#: [id number] : 1960 Acct:[id number] Age/Sex: 64 / M ADM Date: 01/02/25 Loc: ER Room: Type: [facility] ER Attending Dr: Copies to: Dominic Ryder PA-C Ordering Provider: Dominic Rdyer PA-C Date of Service: 01/02/25 XR/XR chest [...] 1459 Signed By: 01/02/25 1501 Normal [facility] aPTT in Platelet poor plasma by Coagulation assayOrdered By: Dominic Ryder on 01-02-2025 aPTT Coag (PPP) [Time] 26.1 s 25.1-36.5 [facility] Comment on above: A hematocrit value g reater than 55% may lead to inaccurate results in coagulation testing. Patients having hematocrit values >55% require a special collection tube for coagulation studies. Please contact the laboratory at [phone] for redraw instructions. Ambulatory Visit Summaryon 0 [...] 8 mg Tab) potassium chloride (Potassium Chloride (Lqs-Colu-Awv M20) 20 mEq oral tablet, extended release) [...] VICTORIA FLORES PA-C Where: [facility] [address] [place] [address]- Wednesday 8:20 AM EDT With: Carlos Sethi Where: [facility] [address] [address]- Medications What How Much When Why Instructions New esomeprazole (esomeprazole 40 mg Cap-EC) 1 Capsules By Mouth Every day Postobstructive pneumonia GERD (gastroesophageal reflux disease) Hospital discharge follow-up BMI 27.0-27.9,adult Overweight (BMI 25.0-29.9) Nonsmoker Refills: 2 Pickup at [facility]/pharmacy #[id number] Unchanged albuterol (albuterol 0.083% Inh Vianca 3 [...] mg Tab) Unchanged potassium chloride (Potassium Chloride (Llm-Ndcy-Wpz M20) 20 mEq oral tablet, extended release) Unchanged prochlorperazine (prochlorperazine 10 mg Tab) Pharmacy Information [id number]: [address], [place] [phone] Allergies codeine (Sweating) Bactrim (Unable to void) Pollen (Watery eye, Eye swelling) sulfamethoxazole (Unknown, Unable to urinate) Problems Ongoing - Any problem that you are currently receiving treatment for. Arthritis BMI 27.0-27.9,adult BPH with urinary obstruction Encounter to establish care Fever Flank pain Former smoker Gout Head injury History of kidney stones Hospital discharge follow-up Hx of emt intermediate use of blood thinners Impaired mobility Kidney [...] signed up for this yet, please contact [employer] at [phone] to get signed up today. Language Information Language assistance services are available as needed. Normal [facility] Family Medicine Office/Clini c Noteon 12-29-2024 Family Medicine Office/Clinic Note Family Medicine Office/Clinic Note Chief Complaint TCM visit The patient presents with postobstructive pneumonia and associated symptoms. HPI Staff Carlos Collins pt. Presenting today for TCM visit. Hospital: [facility] Admission date: 12/15/24 Discharge date: 12/22/24 [...] Daily, # 30 cap(s), Refills(s) 2, Pharmacy: [facility]/pharmacy #[id number], 172, cm, 12/29/24 8:53:00 EDT, Height/Length Dosing, 80.5, kg, 12/29/24 8:53:00 EDT, Weight Dosing [facility] 14 day disch [id number] 2. GERD (gastroesophageal reflux disease) (K21.9: Gastro-esophageal reflux disease without esophagitis) - Continue esomeprazole (Nexium) for GERD management. Ordered: esomeprazole, 40 mg = 1 cap(s), Oral, Daily, # 30 cap(s), Refills(s) 2, Pharmacy: [id number], 172, cm, 12/29/24 8:53:00 EDT, Height/Length Dosing, 80.5, kg, 12/29/24 8:53:00 EDT, Weight Dosing [facility] 14 day disch 75165 3. Nausea and vomiting (R11.2: Nausea with vomiting, unspecified) - Continue prochlorperazine for nausea management. - Encourage high protein intake as advised by dietitian. Ordered: [facility] 14 day disch 30227 4. Hospital discharge follow-up (Z09: Encounter for follow-up examination after completed treatment for conditions other than malignant neoplasm) Reviewed discharge summary and medications Ordered: esomeprazole, 40 mg = 1 cap(s), Oral, Daily, # 30 cap(s), Refills(s) 2, Pharmacy: [facility] #[id number], 172, cm, 12/29/24 8:53:00 EDT, Height/Length Dosing, 80.5, kg, 12/29/24 8:53:00 EDT, Weight Dosing Discharge medications reconciled with current medications in outpatient record [id number] [facility] 14 day disch [address]7112 5. BMI 27.0-27.9,adult (Z68.27: Body mass index [BMI] 27.0-27.9, adult) BMI 27.21 Ordered: esomeprazole, 40 mg = 1 cap(s), Oral, Daily, # 30 cap(s), Refills(s) 2, Pharmacy: [id number], 172, cm, 12/29/24 8:53:00 EDT, Height/Length Dosing, 80.5, kg, 12/29/24 8:53:00 EDT, Weight Dosing [facility] 14 day disch 47292 6. Overweig (more content not included)... Normal [facility] Comment on above: Result Comment: Elec tronically Signed By: CATRACHO YOUSSEF CNP\.br\Date and Time Signed: 12/29/24 09:27 EDT CBC W Auto Differential pane l (Bld)on 12-26-2024 Basophils (Bld) [#/Vol] 0.04 10*3/uL Normal <0.11 [facility] Comment on above: Order Comment: Speci men Type: BLOOD SPECIMENOrdering Facility: [facility] Address: [address] [place] [address] Performed By: #### 5 7021-8 ####[facility] LABCLIA [id number] [place] [address] Basophils/100 WBC (Bld) 0.2 % Normal [facility] Comment on above: Order Comment: Speci men Type: BLOOD SPECIMENOrdering Facility: [facility] Address: [address] [place] [address] Performed By: #### 5 7021-8 ####[facility] LABCLIA [id number] [place] [address] Differential cell count method Nom (Bld) Auto Normal [facility] Comment on above: Order Comment: Speci men Type: BLOOD SPECIMENOrdering Facility: [facility] Address: [address] [place] [address] Performed By: #### 5 7021-8 ####[facility] LABCLIA [id number] [place] [address] Eosinophils (Bld) [#/Vol] 0.51 10*3/uL High <0.46 [facility] Comment on above: Order Comment: Speci men Type: BLOOD SPECIMENOrdering Facility: [facility] Address: [address] [place] [address] Performed By: #### 5 7021-8 ####[facility] LABCLIA [id number] [place] [address] Eosinophils/100 WBC (Bld) 3.0 % Normal [facility] Comment on above: Order Comment: Speci men Type: BLOOD SPECIMENOrdering Facility: [facility] Address: [address] [place] [address] Performed By: #### 5 7021-8 ####[facility] LABCLIA [id number] [place] [address] Erythrocyte distribution width (RBC) [Ratio] 15.2 % High 11.5-15.0 [facility] Comment on above: Order Comment: Speci men Type: BLOOD SPECIMENOrdering Facility: [facility] Address: [address] [place] [address] Performed By: #### 5 7021-8 ####[facility] LABCLIA [id number] [place] [address] Hematocrit (Bld) [Volume fraction] 33.9 % Low 39.0-51.0 [facility] Comment on above: Order Comment: Speci men Type: BLOOD SPECIMENOrdering Facility: [facility] Address: [address] [place] [address] Performed By: #### 5 7021-8 ####[facility] LABCLIA [id number] [place] [address] Hemoglobin (Bld) [Mass/Vol] 10.8 g/dL Low 13.0-17.0 [facility] Comment on above: Order Comment: Speci men Type: BLOOD SPECIMENOrdering Facility: [facility] Address: [address] [place] [address] Performed By: #### 5 7021-8 ####[facility] LABCLIA [id number] [place] [address] Immature granulocytes (Bld) [#/Vol] 0.07 10*3/uL Normal <0.10 [facility] Comment on above: Order Comment: Speci men Type: BLOOD SPECIMENOrdering Facility: [facility] Address: [address] [place] [address] Performed By: #### 5 7021-8 ####[facility] LABIA [id number] [place] [address] Immature granulocytes/100 WBC (Bld) 0.4 % Normal [facility] Comment on above: Order Comment: Speci men Type: BLOOD SPECIMENOrdering Facility: [facility] Address: [address] [place] [address] Performed By: #### 5 7021-8 ####[facility] LABCLIA [id number] [place] [address] Lymphocytes (Bld) [#/Vol] 1.32 10*3/uL Normal 1.00-4.00 [facility] Comment on above: Order Comment: Speci men Type: BLOOD SPECIMENOrdering Facility: [facility] Address: [address] [place] [address] Performed By: #### 5 7021-8 ####[facility] LABCLIA [id number] [place] [address] Lymphocytes/100 WBC (Bld) 7.8 % Normal [facility] Comment on above: Order Comment: Speci men Type: BLOOD SPECIMENOrdering Facility: [facility] Address: [address] [place] [address] Performed By: #### 5 7021-8 ####[facility] LABCLIA [id number] [place] [address] MCH (RBC) [Entitic mass] 27.3 pg Normal 26.0-34.0 [facility] Comment on above: Order Comment: Speci men Type: BLOOD SPECIMENOrdering Facility: [facility] Address: [address] [place] [address] Performed By: #### 5 7021-8 ####[facility] LABCLIA [id number] [place] [address] MCHC (RBC) [Mass/Vol] 31.9 g/dL Normal 30.5-36.0 [facility] Comment on above: Order Comment: Speci men Type: BLOOD SPECIMENOrdering Facility: [facility] Address: [address] [place] [address] Performed By: #### 5 7021-8 ####[facility] LABCLIA [id number] [place] [address] MCV (RBC) [Entitic vol] 85.8 fL Normal 80.0-100.0 [facility] Comment on above: Order Comment: Speci men Type: BLOOD SPECIMENOrdering Facility: [facility] Address: [address] [place] [address] Performed By: #### 5 7021-8 ####[facility] LABCLIA [id number] [place] [address] Monocytes (Bld) [#/Vol] 0.84 10*3/uL Normal <0.87 [facility] Comment on above: Order Comment: Speci men Type: BLOOD SPECIMENOrdering Facility: [facility] Address: [address] [place] [address] Performed By: #### 5 7021-8 ####[facility] LABCLIA [id number] [place] [address] Monocytes/100 WBC (Bld) 4.9 % Normal [facility] Comment on above: Order Comment: Speci men Type: BLOOD SPECIMENOrdering Facility: [facility] Address: [address] [place] [address] Performed By: #### 5 7021-8 ####[facility] LABCLIA [id number] [place] [address] Neutrophils (Bld) [#/Vol] 14.21 10*3/uL High 1.45-7.50 [facility] Comment on above: Order Comment: Speci men Type: BLOOD SPECIMENOrdering Facility: [facility] Address: [address] [place] [address] Performed By: #### 5 7021-8 ####[facility] LABCLIA [id number] [place] [address] Neutrophils/100 WBC (Bld) 83.7 % Normal [facility] Comment on above: Order Comment: Speci men Type: BLOOD SPECIMENOrdering Facility: [facility] Address: [address] [place] [address] Performed By: #### 5 7021-8 ####[facility] LABCLIA [id number] [place] [address] Nucleated RBC (Bld) [#/Vol] 10*3/uL Normal <0.01 [facility] Comment on above: Order Comment: Speci men Type: BLOOD SPECIMENOrdering Facility: [facility] Address: [address] [place] [address] Performed By: #### 5 7021-8 ####[facility] LABCLIA [id number] [place] [address] Nucleated RBC/100 WBC (Bld) [Ratio] 0.0 /100 WBC Normal [facility] Comment on above: Order Comment: Speci men Type: BLOOD SPECIMENOrdering Facility: [facility] Address: [address] [place] [address] Performed By: #### 5 7021-8 ####[facility] LABIA [id number] [place] [address] Platelet mean volume (Bld) [Entitic vol] 9.0 fL Normal 9.0-12.7 [facility] Comment on above: Order Comment: Speci men Type: BLOOD SPECIMENOrdering Facility: [facility] Address: [address] [place] [address] Performed By: #### 5 7021-8 ####[facility] LABCLIA [id number] [place] [address] Platelets (Bld) [#/Vol] 246 10*3/uL Normal 150-400 [facility] Comment on above: Order Comment: Speci men Type: BLOOD SPECIMENOrdering Facility: [facility] Address: [address] [place] [address] Performed By: #### 5 7021-8 ####[facility] LABCLIA [id number] [place] [address] RBC (Bld) [#/Vol] 3.95 10*6/uL Low 4.20-6.00 [facility] Comment on above: Order Comment: Speci men Type: BLOOD SPECIMENOrdering Facility: [facility] Address: [address] [place] [address] Performed By: #### 5 7021-8 ####[facility] LABIA [id number] [place] [address] WBC (Bld) [#/Vol] 16.99 10*3/uL High 3.70-11.00 [facility] Comment on above: Order Comment: Speci men Type: BLOOD SPECIMENOrdering Facility: [facility] Address: [address] [place] [address] Performed By: #### 5 7021-8 ####[facility] LABIA [id number] [place] [address] CNOVSPon 12-26-2024 CNOVSP Normal [facility] CNPNon 12-26-2024 CNPN Normal [facility] Comprehensive metabolic 2000 panelon 12-26-2024 Albumin [Mass/Vol] 3.7 g/dL Low 3.9-4.9 [facility] Comment on above: Order Comment: Speci men Type: BLOOD SPECIMENOrdering Facility: [facility] Address: [address] [place] [address] Performed By: #### 2 4323-8 ####[facility] LABCLIA [id number] [place] [address] ALP [Catalytic activity/Vol] 68 U/L Normal 38-113 [facility] Comment on above: Order Comment: Speci men Type: BLOOD SPECIMENOrdering Facility: [facility] Address: [address] [place] [address] Performed By: #### 2 4323-8 ####[facility] LABCLIA [id number] [place] [address] ALT [Catalytic activity/Vol] 9 U/L Low 10-54 [facility] Comment on above: Order Comment: Speci men Type: BLOOD SPECIMENOrdering Facility: [facility] Address: [address] [place] [address] Performed By: #### 2 4323-8 ####[facility] LABCLIA [id number] [place] [address] Anion gap [Moles/Vol] 14 mmol/L Normal 8-15 [facility] Comment on above: Order Comment: Speci men Type: BLOOD SPECIMENOrdering Facility: [facility] Address: [address] [place] [address] Performed By: #### 2 4323-8 ####[facility] LABCLIA [id number] [place] [address] AST [Catalytic activity/Vol] 10 U/L Low 14-40 [facility] Comment on above: Order Comment: Speci men Type: BLOOD SPECIMENOrdering Facility: [facility] Address: [address] [place] [address] Performed By: #### 2 4323-8 ####[facility] LABCLIA [id number] [place] [address] Bilirubin [Mass/Vol] 0.3 mg/dL Normal 0.2-1.3 [facility] Comment on above: Order Comment: Speci men Type: BLOOD SPECIMENOrdering Facility: [facility] Address: [address] [place] [address] Performed By: #### 2 4323-8 ####[facility] LABCLIA [id number] [place] [address] Calcium [Mass/Vol] 9.5 mg/dL Normal 8.5-10.2 [facility] Comment on above: Order Comment: Speci men Type: BLOOD SPECIMENOrdering Facility: [facility] Address: [address] [place] [address] Performed By: #### 2 4323-8 ####[facility] LABCLIA [id number] [place] [address] Chloride [Moles/Vol] 102 mmol/L Normal 98-107 [facility] Comment on above: Order Comment: Speci men Type: BLOOD SPECIMENOrdering Facility: [facility] Address: [address] [place] [address] Performed By: #### 2 4323-8 ####[facility] LABCLIA [id number] [place] [address] CO2 [Moles/Vol] 20 mmol/L Low 22-30 [facility] Comment on above: Order Comment: Speci men Type: BLOOD SPECIMENOrdering Facility: [facility] Address: [address] [place] [address] Performed By: #### 2 4323-8 ####[facility] LABCLIA [id number] [place] [address] Creatinine [Mass/Vol] 0.84 mg/dL Normal 0.73-1.22 [facility] Comment on above: Order Comment: Speci men Type: BLOOD SPECIMENOrdering Facility: [facility] Address: [address] [place] [address] Performed By: #### 2 4323-8 ####[facility] LABCLIA [id number] [place] [address] eGFRcr SerPlBld CKD-EPI 2020 98 mL/min/1.73m??? Normal >=60 [facility] Comment on above: Order Comment: Speci men Type: BLOOD SPECIMENOrdering Facility: [facility] Address: [address] [place] [address] Result Comment: Carly mated Glomerular Filtration Rate [...] actual GFR. Performed By: #### 2 4323-8 ####[facility] LABCLIA [id number] [place] [address] Glucose [Mass/Vol] 120 mg/dL High 74-99 [facility] Comment on above: Order Comment: Speci men Type: BLOOD SPECIMENOrdering Facility: [facility] Address: [address] [place], [place] [address] Result Comment: The [place] Diabetes Association (ADA) provides guidance for cutoff [...] Standards of Medical Care in Diabetes 2016, [place] Diabetes Association. Diabetes Care. 2016.39(Suppl 1). Performed By: #### 2 4323-8 ####[facility] LABCLIA [id number] [place] [address] Potassium [Moles/Vol] 3.2 mmol/L Low 3.7-5.1 [facility] Comment on above: Order Comment: Speci men Type: BLOOD SPECIMENOrdering Facility: [facility] Address: [address] [place] [address] Performed By: #### 2 4323-8 ####[facility] LABCLIA [id number] [place] [address] Protein [Mass/Vol] 7.0 g/dL Normal 6.3-8.0 [facility] Comment on above: Order Comment: Speci men Type: BLOOD SPECIMENOrdering Facility: [facility] Address: [address] [place] [address] Performed By: #### 2 4323-8 ####[facility] LABCLIA [id number] [place] [address] Sodium [Moles/Vol] 136 mmol/L Normal 136-144 [facility] Comment on above: Order Comment: Speci men Type: BLOOD SPECIMENOrdering Facility: [facility] Address: [address] [place] [address] Performed By: #### 2 4323-8 ####[facility] LABCLIA [id number] [place] [address] Urea nitrogen [Mass/Vol] 17 mg/dL Normal 9-24 [facility] Comment on above: Order Comment: Speci men Type: BLOOD SPECIMENOrdering Facility: [facility] Address: [address] [place] [address] Performed By: #### 2 4323-8 ####[facility] LABCLIA [id number] [place] [address] Ferritin SerPl-mCncon 2024 Ferritin [Mass/Vol] 595.0 ng/mL High 30.3-565.7 [facility] Comment on above: Order Comment: Speci men Type: BLOOD SPECIMENOrdering Facility: [facility] Address: [address] [place] [address] Performed By: #### 5 0190-8, 2275-4, 2132-02, 8 ####[facility] LABCLIA [id number] [place] [address] [place] Folate SerPl-mCncon 12-27-19 25 Folate [Mass/Vol] 10.8 ng/mL Normal >4.7 [facility] Comment on above: Order Comment: Speci men Type: BLOOD SPECIMENOrdering Facility: [facility] Address: [address] [place] [address] Performed By: #### 5 0190-8, 2275-4, 9, 8 ####[facility] LABCLIA [id number] [place] [id number] [facility] [place] Iron and Iron binding capaci ty panel 12-26-2024 Iron [Mass/Vol] 11 ug/dL Low 41-186 [facility] Comment on above: Order Comment: Speci men Type: BLOOD SPECIMENOrdering Facility: [facility] Address: [address] [place], [place] [address] Performed By: #### 5 0190-8, 2275-4, 2132-02, 2284-01 ####[facility] LABCLIA [id number] [place] [id number] [place] Iron binding capacity [Mass/Vol] 180 ug/dL Low 232-386 [facility] Comment on above: Order Comment: Speci men Type: BLOOD SPECIMENOrdering Facility: [facility] Address: [address] [place] [address] Performed By: #### 5 0190-8, 2275-09, 2132-02, 2284-01 ####[facility] LABIA [id number] [place] [id number] [place] Iron/TIBC [Molar ratio] 6.1 % Low 15.0-57.0 [facility] Comment on above: Order Comment: Speci men Type: BLOOD SPECIMENOrdering Facility: [facility] Address: [address] [place] [address] Performed By: #### 5 0190-8, 4, 2132-02, 2284-01 ####[facility] LABCLIA [id number] [place] [id number] [place] Vit [facility]12 [facility] Cobalamin (Vitamin B12) [Mass/Vol] 860 pg/mL Normal 232-1245 [facility] Comment on above: Order Comment: Speci men Type: BLOOD SPECIMENOrdering Facility: [facility] Address: [address] [place] [address] Performed By: #### 5 0190-8, 2275-09, 2132-02, 2284-01 ####[facility] LABCLIA [id number] [address] [facility] 12-26-19 [facility] Case Information Case Priority: None Programs: -- Referral Source: Inside Sales Account Manager Referral Reason: Care coordination Case Type: Transition [...] kidney stones Hospital discharge follow-up Hx of senior care use of blood thinners Kidney stones Microhematuria [...] Care Plan Progress Note Admit Date: 12/15/24 [facility] Date of Discharge: 12/22/24 Follow-up appointment [...] is going to discuss Toprol changes with news photographer Are you having difficulty eating or swallowing [...] Yung (more content not included)... Normal [facility] 12-22-2024 [facility] Normal [facility] 12-18-2024 [facility] Normal [facility] ECG COMPLETEon 12-17-2024 Atrial Rate 83 BPM [facility] Calculated P [place] 34 degrees [facility] Calculated R [place] 22 degrees [facility] Calculated T [place] 14 degrees [facility] P-R Interval 166 ms [facility] QRS Duration 122 ms [facility] QT Interval 390 ms [facility] QTC Calculation (Bazett) 458 ms [facility] Ventricular Rate 83 BPM [facility] NORMAL SINUS RHYTHM COMPLETE RIGHT BUNDLE BRANCH BLOCK ABNORMAL ECG Confirmed by MD RICHIE, PhD, SALOME ([id number]) on 12/17/2024 4:34:47 [facility] NAME : BLANCHE KOCH PID : [id number] : 1960 Gender : Male Race : ORD : [id number] Procedure Date : Nov 15 2024 11:34:55 [...] : [facility] CNPNon 12-14-2024 CNPN Normal [facility] CNPNon 12-12-2024 CNPN Normal [facility] CNNURSEon 12-08-2024 CNNURSE Normal [facility] CNPNon 12-08-2024 CNPN Normal [facility] CT BRAIN WO IVCONon 12-08-19 CT BRAIN WO IVCON Normal [facility] [place] CT Head WO contraston 2024 IMPRESSION: 1. [...] any questions regarding this interpretation, please call [phone]. If you are unable to reach us at the number above, please feel free to contact [facility] eRadiology at [phone]. DIVISION OF RADIOLOGY * * *Final Report* * * DATE OF EXAM: Dec 07 2024 8:32AM [facility] 0504 - CT BRAIN WO IVCON [...] tissues are unremarkable. DIVISION OF RADIOLOGY Provider, [facility] - 12/07/2024 * * *Final Report* * * DATE OF EXAM: Dec 07 2024 8:32AM [facility] 0504 - CT BRAIN WO IVCON [...] any questions regarding this interpretation, please call [phone]. If you are unable to reach us at the number above, please feel free to contact [facility] eRadiology at [phone]. [facility] Radiology Study observation (narrative) Aniket carvalho [facility] CT Head WO contrastOrdered B y: [facility] Provider on 12-07-2024 [facility] Ambulatory Visit Summaryon 0 12-05-2024 Ambulatory [...] PALMA, VICTORIA Flores Where: [facility] [address] [place] [address]- Wednesday 8:20 AM EDT With: Cralos Sethi Where: [facility] [address] [address]- Medications What How Much When Instructions Unchanged [...] kidney stones Hospital discharge follow-up Hx of senior care use of blood thinners Kidney stones Microhematuria [...] signed up for this yet, please contact [employer] at [phone] to get signed up today. Language Information Language assistance services are available as needed. Normal [facility] CNPNon 12-05-2024 CNPN Normal [facility] Family Medicine Office/Clini c Noteon 12-05-2024 Family Medicine Office/Clinic Note Family Medicine Office/Clinic Note Chief Complaint ER follow up HPI Staff Patient is presenting for ER follow up ER followup: Hospital: [facility] Visit date: 11/27/24 Symptoms the patient [...] pts has a direct number to his immigration case worker. she is going to call her when [...] q6hr for wheezing, 60 EA, Refill(s) 0, [facility]/pharmacy #[id number], 172, cm, 12/05/24 11:09:00 EDT, Height/Length Dosing, 84.6, kg, 12/05/24 11:09:00 EDT, Weight Dosing predniSONE, See Instructions, TAKE 3 TABLETS X 3 DAYS, 2 TABLETS X 3 DAYS, THEN 1 TABLET X 3 DAYS, # 18 tab(s), Refills(s) 2, Pharmacy: [facility]/pharmacy #[id number], 172, cm, 12/05/24 11:09:00 EDT, Height/Length Dosing, 84.6, kg, 12/05/24 11:09:00 EDT, Weight Dosing Follow-up No qualifying data available Problem List/Past Medical History Ongoing Arthritis BMI 31.0-31.9,adult BPH with urinary obstruction Encounter to establish care Fever Flank pain Former smoker Gout Head injury History of kidney stones Hospital discharge follow-up Hx of emt intermediate use of blood thinners Kidney stones [...] influenza virus vaccine, inactivated 03/14/2017 Recorded Normal [facility] Comment on above: Result Comment: Elec tronically Signed By: Carlos Sethi\.br\Date and Time Signed: 12/05/24 15:02 EDT [facility] 11-28-2024 CNPN Normal [facility] CNNURSEon 11-27-2024 CNNURSE Normal [facility] Folate SerPl-ncon 11-28-19 25 Folate [Mass/Vol] 14.7 ng/mL Normal >4.7 [facility] Comment on above: Order Comment: Speci men Type: BLOOD SPECIMENOrdering Facility: [facility] Address: [address] [place] [address] Performed By: #### 2 132-9, 2284-8, 10649-9 ####[facility] LABCLIA [id number] [place] [address] [place] Iron and Iron binding capaci ty panelon 11-27-2024 Iron [Mass/Vol] 32 ug/dL Low 41-186 [facility] Comment on above: Order Comment: Speci men Type: BLOOD SPECIMENOrdering Facility: [facility] Address: [address] [place] [address] Performed By: #### 2 132-9, 2284-8, 26706-7 ####[facility] LABIA [id number] [place] [address] [place] Iron binding capacity [Mass/Vol] 264 ug/dL Normal 232-386 [facility] Comment on above: Order Comment: Speci men Type: BLOOD SPECIMENOrdering Facility: [facility] Address: [address] [place] [address] Performed By: #### 2 132-9, 2284-8, 12664-6 ####[facility] LABIA [id number] [place] [address] [place] Iron/TIBC [Molar ratio] 12.1 % Low 15.0-57.0 [facility] Comment on above: Order Comment: Speci men Type: BLOOD SPECIMENOrdering Facility: [facility] Address: [address] [place] [address] Performed By: #### 2 132-9, 2284-8, 56673-3 ####[facility] LABIA [id number] [place] [id number] [place] Vit B12 SerPl-ncon 025 Cobalamin (Vitamin B12) [Mass/Vol] 782 pg/mL Normal 232-1245 [facility] Comment on above: Order Comment: Speci men Type: BLOOD SPECIMENOrdering Facility: [facility] Address: [address] [place] [address] Performed By: #### 2 132-9, 2284-8, 12432-0 ####[facility] LABCLIA [id number] [place] [address] [place] CNPNon 11-23-2024 CNPN Normal [facility] Population Health 11-22-19 [facility] Case Information Case Priority: None Programs: -- Referral Source: Inside Sales Account Manager Referral Reason: Care coordination Case Type: Transition [...] kidney stones Hospital discharge follow-up Hx of senior care use of blood thinners Kidney stones Microhematuria [...] States doing well had bronchoscopy yesterday at [facility], they were able to remove a majority of the right lung mass. Denies any SOB, CP, weakness or syncopal episodes. Does have a frequent dry cough today, no fevers, had some blood tinged sputum yesterday and late last night, none today. he is going to [facility] for an x-ray when his gets home today to check for pacemaker lead placement, was told Communication Events Date: November 21, 2024 Method: Phone call Type: Outbound Duration (min): 15 Outcome: Case discussion Contact Type: manager of case managementmajor gifts manager Name: Tamiko Sadler LPN Notes: -- [...] and not able to finish note. Normal [facility] XR CHEST 2 VWSon 11-21-2024 XR CHEST [...] Mccormick MD on 11/21/2024 10:29 PM Normal [facility] ANES POSTPROC EVALon 025 ANES POSTPROC EVAL Normal [facility] ANES PRE-OPon 11-20-2024 ANES PRE-OP Normal [facility] Bacteria Spec Resp Culton Bacteria identified Respiratory culture Nom (Unsp spec) Abnormal [facility] Comment on above: Performed By: #### 1 1475-1, 96988-0 ####[facility] LABCLIA [id number] [address] [address] [place] Bronchoscopyon 11-20-2024 Bronchoscopy Normal [facility] CNPNon 11-20-2024 CNPN Normal [facility] Microorganism Spec Culton Microorganism identified Cx Nom (Unsp spec) CULTURE, FUNGAL: No Fungus isolated after 28 days FUNGAL SMEAR: No fungus seen Normal [facility] Comment on above: Performed By: #### 1 1475-1, 62027-3 ####[facility] LABCLIA [id number] [place] [id number] [place] Microorganism identified Cx Nom (Unsp spec) CULTURE, AFB: No Acid Fast Bacilli isolated after 42 days AFB STAIN: No acid fast bacilli seen by fluorochrome stain Normal [facility] Comment on above: Performed By: #### 1 1475-1, 97413-6 ####[facility] LABCLIA [id number] [address] [address] [place] NURSING PROGon 11-20-2024 NURSING PROG Normal [facility] PD-L1 22C3on 11-20-2024 AP BIOMARKER DISCLAIMER Normal [facility] Comment on above: Order Comment: Speci men Type: TISSUE SPECIMENOrdering Facility: [facility] Address: [address] [place] [address] Result Comment: Babita carter Developed Test (LDT) Disclaimer:Performance characteristics of immunohistochemical, immunofluorescent and chromogenic in-situ hybridization tests have been determined by the performing laboratory within [facility]???s Pro Cuellar Pathology and Laboratory Medicine Department ([facility], [facility], [facility], [facility], [facility], [facility], or [facility]) in a manner consistent with CLIA requirements. One or more of these tests have not been cleared or approved by the FDA. [facility] is regulated under CLIA as qualified to perform high-complexity testing. These tests are used for clinical purposes. They should not be regarded as investigational or for research. Positive and negative controls stain appropriately. Performed By: #### L [id number] ####[facility] LABCLIA [id number] [place] [address] [place] AP BLOCK ID A1 Normal [facility] Comment on above: Order Comment: Ange hull Type: TISSUE SPECIMENOrdering Facility: [facility] Address: [address] [place] [address] Performed By: #### L [id number] ####[facility] LABCLIA [id number] [address] BIOMARKER INTERPRETATION COMMENT AND REFERENCE RANGE Normal [facility] Comment on above: Order Comment: Ange hull Type: TISSUE SPECIMENOrdering Facility: [facility] Address: [address] [place] [address] Result Comment: Inte rpretation standard:TPS: The Tumor [...] label for additional information.KEYTRUDA - (https://www.keytrudahcp.com/prescribing-information/)LIBTAYO - (https://www.4tiitoo/sites/default/files/Libtayo_[email or web address].pdf ) Performed By: #### L [id number] ####[facility] LABCLIA [id number] [facility] [id number], [place] [address] [place] BIOMARKER METHOD Normal [facility] Comment on above: Order Comment: Speci men Type: TISSUE SPECIMENOrdering Facility: [facility] Address: [address] [place] [address] Performed By: #### L [id number] ####[facility] LABCLIA [id number] [facility] [place] [id number] [address] [place] [facility] CASE NUMBER PD-L1 [id number] Normal [facility] Comment on above: Order Comment: Speci men Type: TISSUE SPECIMENOrdering Facility: [facility] Address: [address] [place] [address] Performed By: #### L [id number] ####[facility] LABCLIA [id number] [address] [place] [address] [place] FIXATIVE Formalin, 10% Neutra l Buffered Normal [facility] Comment on above: Order Comment: Speci men Type: TISSUE SPECIMENOrdering Facility: [facility] Address: [address] [place], [place] [address] Performed By: #### L [id number] ####[facility] LABCLIA [id number] [address] [place] [address] [place] PD-L1 22C3 TPS (LUNG) INTERPRETATION Negative Normal [facility] Comment on above: Order Comment: Speci men Type: TISSUE SPECIMENOrdering Facility: [facility] Address: [address] [place], [place] [id number] Performed By: #### L [id number] ####[facility] LABCLIA [id number] [address] [place] [address] [place] [facility] [place] PD-L1 TUMOR TYPE Other (See Comment) Normal [facility] Comment on above: Order Comment: Speci men Type: TISSUE SPECIMENOrdering Facility: [facility] Address: [address] [place] [address] Performed By: #### L [id number] ####[facility] LABIA [id number] [address] [address] [place] TUMOR PROPORTION SCORE (TPS) 0 Normal [facility] Comment on above: Order Comment: Speci men Type: TISSUE SPECIMENOrdering Facility: [facility] Address: [address] [place] [address] Performed By: #### L [id number] ####[facility] LABIA [id number] [address] [place] [address] [place] Pathology biopsy report Meño (Tiss)on 11-20-2024 ADDENDUM 1: Normal [facility] Comment on above: Order Comment: Speci men Type: TISSUE SPECIMENOrdering Facility: [facility] Address: [address] [place] [address] Result Comment: This addendum is issued to report that an immunohistochemical stain for p40 was performed to confirm the squamous immunophenotype of the tumor cells, which are diffusely positive for this marker. The above diagnosis remains unchanged.11/24/2024Laboratory Developed Test (LDT) Disclaimer:Performance characteristics of immunohistochemical, immunofluorescent and chromogenic in-situ hybridization tests have been determined by the performing laboratory within [facility] Pathology and Laboratory Medicine [place] ([facility], [facility], [facility] or [facility]) in a manner consistent with CLIA [...] 1049 EDT Performed By: #### 6 6121-5 ####[facility] LABIA [id number] [address] [address] [place] AP DISCLAIMER Normal [facility] Comment on above: Order Comment: Speci men Type: TISSUE SPECIMENOrdering Facility: [facility] Address: [address] [place] [address] Result Comment: Babita carter Developed Test (LDT) Disclaimer:Performance characteristics of immunohistochemical, immunofluorescent, and chromogenic in-situ hybridization tests have been determined by the performing laboratory within [facility] Pathology and Laboratory Medicine Department ([facility], [facility], [facility], [facility], [facility], [facility], or [facility]) in a manner consistent with CLIA requirements. One or more of these tests may not have been cleared or approved by the FDA. [facility] is regulated under CLIA as qualified to perform high-complexity testing. These tests are used for clinical purposes. These should not be regarded as investigational or for research. Positive and negative controls stain appropriately. Performed By: #### 6 6121-5 ####[facility] LABCLIA [id number] [place] [address] [place] CASE REPORT Normal [facility] Comment on above: Order Comment: Speci della Type: TISSUE SPECIMENOrdering Facility: [facility] Address: [address] [place] [address] Result Comment: Surg [facility] Pathology Report Case: [id number] Provider: Alexandre Robertson MD Collected: 11/20/2024 11:10 AMOrdering Location: Admitting Received: 11/20/2024 03:27 PMPathologist: William Araujo V, MDSpecimen: Lung, Right, Biopsy, BI EBBX Performed By: #### 6 6121-5 ####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 LABCLIA [id number] [address] FINAL DIAGNOSIS Normal [facility] Comment on above: Order Comment: Speci men Type: TISSUE SPECIMENOrdering Facility: [facility] Address: [address] [place] [address] Result Comment: Righ t lung, bronchus intermedius, endobronchial biopsy:- Squamous cell carcinoma.[place]/ 11/21/2024 at 1050 EDT Performed By: #### 6 6121-5 ####[facility] LABCLIA [id number] [address] STATES OF [facility] GROSS DESCRIPTION Normal [facility] Comment on above: Order Comment: Speci men Type: TISSUE SPECIMENOrdering Facility: [facility] Address: [address] [place] [address] Result Comment: A. L john, Right, BiopsyReceived in formalin are multiple pieces of cardenas-red, soft tissue aggregating to 2.1 x 0.6 x 0.1 cm. Totally submitted in one cassette.Gross examination performed at [facility], [address] [place], [place] [address]AMS November 20, 2024 6:23 PM Performed By: #### 6 6121-5 ####[facility] LABCLIA [id number] [address] [place] Tiss Path Bx reporton 2024 FINAL PERFORMING LAB Normal [facility] Comment on above: Order Comment: Speci men Type: TISSUE SPECIMENOrdering Facility: [facility] Address: [address] [place] [address] Result Comment: Diag nostic interpretation performed at: [facility], [address] [place] [address] CLIA# [id number] Director: Padilla López MD Performed By: #### 6 6121-5 ####[facility] LABCLIA [id number] [place] [address] [place] Result Comment: Diag nostic interpretation performed at: [facility], [address] [facility] [address] [address] CLIA# [id number] Director: Padilla López MDElectronically signed out by: William Araujo MD Performed By: #### L [id number] ####[facility] LABCLIA [id number] [place] [id number] [place] CNCNPATEDon 11-17-2024 CNCNPATED Normal [facility] CNOVon 11-17-2024 CNOV Normal [facility] CNOVSPon 11-17-2024 CNOVSP Normal [facility] CNPNon 11-17-2024 CNPN Normal [facility] CNOVon 11-15-2024 CNOV Normal [facility] ECG COMPLETEon 11-15-2024 ECG COMPLETE Normal [facility] NURSING PROGon 11-13-2024 NURSING PROG Normal [facility] Population Healthon 11-14-19 [facility] Health Case Information Case Priority: None Programs: -- Referral Source: Inside Sales Account Manager Referral Reason: Care coordination Case Type: Transition [...] kidney stones Hospital discharge follow-up Hx of senior care use of blood thinners Kidney stones Microhematuria [...] 'alright.' Notes he had some testing at [facility] this morning (labs, US, CT scan). Patient denies any SOB, breathing difficulties, or chest discomfort. Denies weakness. Notes he had a PCM inserted at [facility] last and that it went without complications. Patient does report some discomfort from procedure, as to be excpeted. Notes he has follow ups in place for PCM. Patient reports he feels 'a lot better now.' Reports BP is 'fantastic.' Patient has a consult with [facility] on 11/15/24 and is scheduled for out patient surgery on 11/20/24, having right lung mass removed at [facility]. Patient denies any further questions or concerns at this time and is appreciative of follow up call. Communication Events Date: November 13, 2024 Method: Phone call Type: Outbound Duration (min): 7 Outcome: Case discussion Contact Type: Patient Contact Name: JATIN KOCH II Notes: TCM#2- see tcm note. Created By: Gordo Humphries [facility] CBC WITH AUTO DIFFERENTIALon 11-09-2024 CELLAVISION DIFFERENTIAL TYPE CELLAVISION DIFFERENTIAL Normal [facility] Comment on above: Result Comment: This is an appended report. These results have been appended to a previously preliminary verified report. Performed By: #### C BCA #### [facility] ([facility]) [address] [place] [address] VIR CELLAVISION EOSINOPHILS ABSOLUTE COUNT (10*3/UL) BY MANUAL COUNT 0.2 10*3/uL Normal 0.0-0.4 [facility] Comment on above: Result Comment: This is an appended report. These results have been appended to a previously preliminary verified report. Performed By: #### C BCA #### [facility] ([facility]) [address] [place] [address] VIR CELLAVISION EOSINOPHILS PERCENT BY MANUAL COUNT 1 % Normal [facility] Comment on above: Result Comment: This is an appended report. These results have been appended to a previously preliminary verified report. Performed By: #### C BCA #### [facility] ([facility]) [address] [place] [address] VIR CELLAVISION LYMPHOCYTES ABSOLUTE COUNT (10*3/UL) BY MANUAL COUNT 1.8 10*3/uL Normal 1.0-3.5 [facility] Comment on above: Result Comment: This is an appended report. These results have been appended to a previously preliminary verified report. Performed By: #### C BCA #### [facility] ([facility]) [address] [place] [address] VIR CELLAVISION LYMPHOCYTES RELATIVE PERCENT BY MANUAL COUNT 11 % Normal [facility] Comment on above: Result Comment: This is an appended report. These results have been appended to a previously preliminary verified report. Performed By: #### C BCA #### [facility] ([facility]) [address] [place] [address] VIR CELLAVISION METAMYELOCYTES RELATIVE PERCENT BY MANUAL COUNT 2 % Normal [facility] Comment on above: Result Comment: This is an appended report. These results have been appended to a previously preliminary verified report. Performed By: #### C BCA #### [facility] ([facility]) [address] [place] [address] VIR CELLAVISION MONOCYTES ABSOLUTE COUNT (10*3/UL) IN BLOOD BY MANUAL COUNT 1.8 10*3/uL High 0.0-0.9 [facility] Comment on above: Result Comment: This is an appended report. These results have been appended to a previously preliminary verified report. Performed By: #### C BCA #### [facility] ([facility]) [address] [place] [address] VIR CELLAVISION MONOCYTES RELATIVE PERCENT BY MANUAL COUNT 11 % Normal [facility] Comment on above: Result Comment: This is an appended report. These results have been appended to a previously preliminary verified report. Performed By: #### C BCA #### [facility] ([facility]) [address] [place] [address] VIR CELLAVISION MYELOCYTE RELATIVE PERCENT BY MANUAL COUNT 1 % Normal [facility] Comment on above: Result Comment: This is an appended report. These results have been appended to a previously preliminary verified report. Performed By: #### C BCA #### [facility] ([facility]) [address] [place] [address] VIR CELLAVISION NEUTROPHILS ABSOLUTE COUNT BY MANUAL COUNT 11.5 10*3/uL High 1.5-6.6 [facility] Comment on above: Result Comment: This is an appended report. These results have been appended to a previously preliminary verified report. Performed By: #### C BCA #### [facility] ([facility]) [address] [place] [address] VIR CELLAVISION NEUTROPHILS RELATIVE PERCENT BY MANUAL COUNT 73 % Normal [facility] Comment on above: Result Comment: This is an appended report. These results have been appended to a previously preliminary verified report. Performed By: #### C BCA #### [facility] ([facility]) [address] [place] [address] VIR CELLAVISION RBC MORPHOLOGY Normal Normal [facility] Comment on above: Result Comment: This is an appended report. These results have been appended to a previously preliminary verified report. Performed By: #### C BCA #### [facility] ([facility]) [address] [place] [address] VIR Erythrocyte distribution width (RBC) [Ratio] 16.5 % High 11.5-15 [facility] Comment on above: Performed By: #### C BCA #### [facility] ([facility]) [address] [place] [address] VIR Hematocrit (Bld) [Volume fraction] 35.1 % Low 39-50 [facility] Comment on above: Performed By: #### C BCA #### [facility] ([facility]) [address] [place] [address] VIR Hemoglobin (Bld) [Mass/Vol] 11.7 g/dL Low 13-17 [facility] Comment on above: Performed By: #### C BCA #### [facility] ([facility]) [address] [place] [address] VIR MCH (RBC) [Entitic mass] 27.6 pg Normal 27-34 [facility] Comment on above: Performed By: #### C BCA #### [facility] ([facility]) [address] [place] [address] VIR MCHC (RBC) [Mass/Vol] 33.4 g/dL Normal 32-36 [facility] Comment on above: Performed By: #### C BCA #### [facility] ([facility]) [address] [place] [address] VIR MCV (RBC) [Entitic vol] 83 fL Normal 80-100 [facility] Comment on above: Performed By: #### C BCA #### [facility] ([facility]) [address] [place] [address] VIR Platelet mean volume (Bld) [Entitic vol] 6.9 fL Low 7-12 [facility] Comment on above: Performed By: #### C BCA #### [facility] ([facility]) [address] [place] [address] VIR Platelets (Bld) [#/Vol] 254 10*3/uL Normal 150-450 [facility] Comment on above: Performed By: #### C BCA #### [facility] ([facility]) [address] [place] [address] VIR RBC COUNT 4.25 X10E12/L Normal 4.1-5.7 [facility] Comment on above: Performed By: #### C BCA #### [facility] ([facility]) [address] [place] [address] VIR WBC (Bld) [#/Vol] 15.7 10*3/uL High 4-11 [facility] Comment on above: Performed By: #### C BCA #### [facility] ([facility]) [address] [place] [address] VIR COMPREHENSIVE METABOLIC PANE Paul 11-09-2024 Albumin [Mass/Vol] 3.4 g/dL Normal 3.2-5.3 [facility] Comment on above: Performed By: #### C MP #### [facility] ([facility]) [address] [place] [address] VIR ALP [Catalytic activity/Vol] 53 U/L Normal 39-130 [facility] Comment on above: Performed By: #### C MP #### [facility] ([facility]) [address] [place] [address] VIR ALT [Catalytic activity/Vol] 26 U/L Normal <=40 [facility] Comment on above: Performed By: #### C MP #### [facility] ([facility]) [address] [place] [address] VIR Anion gap [Moles/Vol] 10 mmol/L Normal 5-15 [facility] Comment on above: Performed By: #### C MP #### [facility] ([facility]) [address] [place] [address] VIR AST [Catalytic activity/Vol] 13 U/L Normal <=41 [facility] Comment on above: Performed By: #### C MP #### [facility] ([facility]) [address] [place] [address] VIR Bilirubin [Mass/Vol] 0.4 mg/dL Normal 0.3-1.2 [facility] Comment on above: Performed By: #### C MP #### [facility] ([facility]) [address] [place] [address] VIR Calcium [Mass/Vol] 8.6 mg/dL Normal 8.5-10.5 [facility] Comment on above: Performed By: #### C MP #### [facility] ([facility]) [address] [place] [address] VIR Chloride [Moles/Vol] 100 mmol/L Normal 98-109 [facility] Comment on above: Performed By: #### C MP #### [facility] ([facility]) [address] [place] [address] VIR CO2 [Moles/Vol] 28 mmol/L Normal 22-32 [facility] Comment on above: Performed By: #### C MP #### [facility] ([facility]) [address] [place] [address] VIR Creatinine [Mass/Vol] 0.65 mg/dL Normal 0.60-1.30 [facility] Comment on above: Result Comment: METH OD TRACEABLE TO IDMS STANDARD Performed By: #### C MP #### [facility] ([facility]) [address] [place] [address] VIR EGFR (CKD-EPI) NON-RACE DEPENDENT >^90 Normal >=60 [facility] Comment on above: Result Comment: Repo rted eGFR is based on the CKD-EPI 2020 equation that does not use a race coefficient. Performed By: #### C MP #### [facility] ([facility]) [address] [place] [address] VIR Glucose [Mass/Vol] 104 mg/dL High 65-99 [facility] Comment on above: Performed By: #### C MP #### [facility] ([facility]) [address] [place] [address] VIR Potassium [Moles/Vol] 4.2 mmol/L Normal 3.5-5.0 [facility] Comment on above: Performed By: #### C MP #### [facility] ([facility]) [address] [place] [address] VIR Protein [Mass/Vol] 5.8 g/dL Low 6.0-8.0 [facility] Comment on above: Performed By: #### C MP #### [facility] ([facility]) [address] [place] [address] VIR Sodium [Moles/Vol] 138 mmol/L Normal 134-146 [facility] Comment on above: Performed By: #### C MP #### [facility] ([facility]) [address] [place] [address] VIR Urea nitrogen [Mass/Vol] 25 mg/dL Normal 5-27 [facility] Comment on above: Performed By: #### C MP #### [facility] ([facility]) [address] [place] [address] VIR LACTATE W/ REFLEXon 11-09- 25 LACTATE W/REFLEX 1.1 mmol/L Normal 0.4-2.0 [facility] Comment on above: Order Comment: Resul t did not trigger repeat Lactate, re-order if needed. Performed By: #### L ACTS #### [facility] ([facility]) [address] [place] [address] VIR PROCALCITONINon 11-09-2024 PROCALCITONIN 0.08 ng/mL High <0.05 [facility] Comment on above: Order Comment: <0.50 ng/mL - Low risk of severe sepsis and/or septic shock. <2.00 ng/mL - Recommend retesting within 6-24 hours. >2.00 ng/mL - High risk of sepsis and/or septic shock. Performed By: #### P GLENDY #### [facility] ([facility]) [address] [place] [address] VIR XR CHEST 2 VWSon 11-09-2024 XR [...] Colin MD on 11/09/2024 4:20 PM Normal [facility] APTTon 11-08-2024 aPTT Coag (Bld) [Time] 25 s Low 26-37 [facility] Comment on above: Performed By: #### P TT #### [facility] ([facility]) [address] [place] [address] [place] [address] VIR B-TYPE NATRIURETIC PEPTIDEon 11-08-2024 Natriuretic peptide B (Bld) [Mass/Vol] 64 pg/mL Normal <=100 [facility] Comment on above: Performed By: #### B SALVAGE ENGINEER #### [facility] ([address] [place] [address] VIR CBC WITH AUTO DIFFERENTIALon 11-08-2024 CELLAVISION BASOPHILS ABSOLUTE COUNT (10*3/UL) BY MANUAL COUNT 0.8 10*3/uL High 0.0-0.2 [facility] Comment on above: Result Comment: This is an appended report. These results have been appended to a previously preliminary verified report. Performed By: #### C BCA #### [facility] ([facility]) [address] [place] [address] VIR CELLAVISION BASOPHILS RELATIVE PERCENT BY MANUAL COUNT 5 % Normal [facility] Comment on above: Result Comment: This is an appended report. These results have been appended to a previously preliminary verified report. Performed By: #### C BCA #### [facility] ([facility]) [address] [place] [address] VIR CELLAVISION DIFFERENTIAL TYPE CELLAVISION DIFFERENTIAL Normal [facility] Comment on above: Result Comment: This is an appended report. These results have been appended to a previously preliminary verified report. Performed By: #### C BCA #### [facility] ([facility]) [address] [place] [address] VIR CELLAVISION EOSINOPHILS ABSOLUTE COUNT (10*3/UL) BY MANUAL COUNT 0.2 10*3/uL Normal 0.0-0.4 [facility] Comment on above: Result Comment: This is an appended report. These results have been appended to a previously preliminary verified report. Performed By: #### C BCA #### [facility] ([facility]) [address] [place] [address] VIR CELLAVISION EOSINOPHILS PERCENT BY MANUAL COUNT 1 % Normal [facility] Comment on above: Result Comment: This is an appended report. These results have been appended to a previously preliminary verified report. Performed By: #### C BCA #### [facility] ([facility]) [address] [place] [address] VIR CELLAVISION LYMPHOCYTES ABSOLUTE COUNT (10*3/UL) BY MANUAL COUNT 1.7 10*3/uL Normal 1.0-3.5 [facility] Comment on above: Result Comment: This is an appended report. These results have been appended to a previously preliminary verified report. Performed By: #### C BCA #### [facility] ([facility]) [address] [place] [address] VIR CELLAVISION LYMPHOCYTES RELATIVE PERCENT BY MANUAL COUNT 9 % Normal [facility] Comment on above: Result Comment: This is an appended report. These results have been appended to a previously preliminary verified report. Performed By: #### C BCA #### [facility] ([facility]) [address] [place] [address] VIR CELLAVISION MONOCYTES ABSOLUTE COUNT (10*3/UL) IN BLOOD BY MANUAL COUNT 0.5 10*3/uL Normal 0.0-0.9 [facility] Comment on above: Result Comment: This is an appended report. These results have been appended to a previously preliminary verified report. Performed By: #### C BCA #### [facility] ([address] [address] VIR CELLAVISION MONOCYTES RELATIVE PERCENT BY MANUAL COUNT 3 % Normal [facility] Comment on above: Result Comment: This is an appended report. These results have been appended to a previously preliminary verified report. Performed By: #### C BCA #### [facility] ([address] [address] VIR CELLAVISION NEUTROPHILS ABSOLUTE COUNT BY MANUAL COUNT 14.4 10*3/uL High 1.5-6.6 [facility] Comment on above: Result Comment: This is an appended report. These results have been appended to a previously preliminary verified report. Performed By: #### C BCA #### [facility] ([facility]) [address] [place] [address] VIR CELLAVISION NEUTROPHILS RELATIVE PERCENT BY MANUAL COUNT 80 % Normal [facility] Comment on above: Result Comment: This is an appended report. These results have been appended to a previously preliminary verified report. Performed By: #### C BCA #### [facility] ([facility]) [address] [place] [address] VIR CELLAVISION PROMYELOCYTES RELATIVE PERCENT BY MANUAL COUNT 2 % Normal [facility] Comment on above: Result Comment: This is an appended report. These results have been appended to a previously preliminary verified report. Performed By: #### C BCA #### [facility] ([address] [address] VIR Erythrocyte distribution width (RBC) [Ratio] 16.7 % High 11.5-15 [facility] Comment on above: Performed By: #### C BCA #### [facility] ([address] [address] VIR Hematocrit (Bld) [Volume fraction] 36.6 % Low 39-50 [facility] Comment on above: Performed By: #### C BCA #### [facility] ([address] [address] VIR Hemoglobin (Bld) [Mass/Vol] 12.1 g/dL Low 13-17 [facility] Comment on above: Performed By: #### C BCA #### [facility] ([address] [address] VIR MCH (RBC) [Entitic mass] 27.6 pg Normal 27-34 [facility] Comment on above: Performed By: #### C BCA #### [facility] ([address] [address] VIR MCHC (RBC) [Mass/Vol] 32.9 g/dL Normal 32-36 [facility] Comment on above: Performed By: #### C BCA #### [facility] ([address] [address] VIR MCV (RBC) [Entitic vol] 84 fL Normal 80-100 [facility] Comment on above: Performed By: #### C BCA #### [facility] ([facility]) [address] [place] [address] VIR Platelet mean volume (Bld) [Entitic vol] 6.9 fL Low 7-12 [facility] Comment on above: Performed By: #### C BCA #### [facility] ([address] [place] [address] VIR Platelets (Bld) [#/Vol] 281 10*3/uL Normal 150-450 [facility] Comment on above: Performed By: #### C BCA #### [facility] ([facility]) [address] [place] [address] [place] [address] VIR RBC COUNT 4.37 X10E12/L Normal 4.1-5.7 [facility] Comment on above: Performed By: #### C BCA #### [facility] ([address] [place] [address] VIR WBC (Bld) [#/Vol] 18.0 10*3/uL High 4-11 [facility] Comment on above: Performed By: #### C BCA #### [facility] ([address] [place] [address] VIR COMPREHENSIVE METABOLIC PANE Paul 11-08-2024 Albumin [Mass/Vol] 3.1 g/dL Low 3.2-5.3 [facility] Comment on above: Performed By: #### C MP #### [facility] ([address] [place] [address] VIR ALP [Catalytic activity/Vol] 60 U/L Normal 39-130 [facility] Comment on above: Performed By: #### C MP #### [facility] ([address] [place] [address] VIR ALT [Catalytic activity/Vol] 41 U/L High <=40 [facility] Comment on above: Performed By: #### C MP #### [facility] ([address] [place] [address] VIR Anion gap [Moles/Vol] 9 mmol/L Normal 5-15 [facility] Comment on above: Performed By: #### C MP #### [facility] ([address] [place] [address] VIR AST [Catalytic activity/Vol] 19 U/L Normal <=41 [facility] Comment on above: Performed By: #### C MP #### [facility] ([address] [place] [address] VIR Bilirubin [Mass/Vol] 0.5 mg/dL Normal 0.3-1.2 [facility] Comment on above: Performed By: #### C MP #### [facility] ([address] [place] [address] VIR Calcium [Mass/Vol] 8.5 mg/dL Normal 8.5-10.5 [facility] Comment on above: Performed By: #### C MP #### [facility] ([address] [place] [address] VIR Chloride [Moles/Vol] 96 mmol/L Low 98-109 [facility] Comment on above: Performed By: #### C MP #### [facility] ([address] [place] [address] VIR CO2 [Moles/Vol] 24 mmol/L Normal 22-32 [facility] Comment on above: Performed By: #### C MP #### [facility] ([address] [place] [address] VIR Creatinine [Mass/Vol] 0.84 mg/dL Normal 0.70-1.20 [facility] Comment on above: Result Comment: METH OD TRACEABLE TO IDMS STANDARD Performed By: #### C MP #### [facility] ([address] [place] [address] VIR EGFR (CKD-EPI) NON-RACE DEPENDENT >^90 Normal >=60 [facility] Comment on above: Result Comment: eGFR not reported due to non-numeric value for Creatinine. Reported eGFR is based on the CKD-EPI 2020 equation that does not use a race coefficient. Performed By: #### C MP #### [facility] ([facility]) [address] [place] [address] VIR Glucose [Mass/Vol] 134 mg/dL High 65-99 [facility] Comment on above: Performed By: #### C MP #### [facility] ([address] [place] [address] VIR Potassium [Moles/Vol] 4.2 mmol/L Normal 3.5-5.0 [facility] Comment on above: Performed By: #### C MP #### [facility] ([address] [place] [address] VIR Protein [Mass/Vol] 6.7 g/dL Normal 6.0-8.0 [facility] Comment on above: Performed By: #### C MP #### [facility] ([address] [place] [address] VIR Sodium [Moles/Vol] 129 mmol/L Low 134-146 [facility] Comment on above: Performed By: #### C MP #### [facility] ([address] [place] [address] VIR Urea nitrogen [Mass/Vol] 30 mg/dL High 5-27 [facility] Comment on above: Performed By: #### C MP #### [facility] ([address] [place] [address] VIR D-DIMERon 11-08-2024 D DIMER 175 ug/mL Normal 1-255 [facility] Comment on above: Result Comment: Resu lts <255 ng/mL DDU: The presensence of a VTE can safely be excluded with a negative D-Dimer result and Wells score. A negative result doesn't exclude the possibility of DIC. The test should be repeated along with other diagnostic tests if the patient's symptoms persist or worsen. Performed By: #### D DMR #### [facility] ([facility]) [address] [place] [address] VIR Family Medicine Office/Clini c Noteon 11-08-2024 Family Medicine Office/Clinic Note Family Medicine Office/Clinic Note HPI Staff Jatin is a 64 year old male presenting for ER follow up [facility] Hospital: [facility] Visit date: 11/04/24 Discharge: 11/06/24 Discharge [...] lung cancer. will be following oncology at [facility] 4. Syncope (R55: Syncope and collapse) pt has halter monitor on is scheduled to see cardiology at 2:40 today 5. BMI 32.0-32.9,adult (Z68.32: Body mass index [BMI] 32.0-32.9, adult) BMI educaiton Ordered: [facility] 7 day disch [id number] 6. Former smoker (Z87.891: Personal history of nicotine dependence) continue not smoking Ordered: [facility] Trans care [facility] 7 day disch [id number] Follow-up No qualifying data available Problem List/Past Medical History Ongoing Arthritis BMI 31.0-31.9,adult BPH with urinary obstruction Encounter to establish care Flank pain Former smoker Gout Head injury History of kidney stones Hospital discharge follow-up Hx of emt intermediate use of blood thinners Kidney stones [...] 11-08-2024 Magnesium [Mass/Vol] 2.1 mg/dL Normal 1.8-2.6 [facility] Comment on above: Performed By: #### M G #### [facility] ([address] [address] VIR POCT EKGOrdered By: Victoria Collado on 11-08-2024 [facility] PROTIME AND INRon 11-08-2024 INR 1.1 Normal 0.9-1.2 [facility] Comment on above: Performed By: #### P INR #### [facility] ([address] [address] VIR PT Coag (PPP) [Time] 12.4 s Normal 9.8-13.2 [facility] Comment on above: Performed By: #### P INR #### [facility] ([address] [address] VIR THYROID PROFILE INCLUDES TSH FT4on 11-08-2024 Free T4 [Mass/Vol] 0.88 ng/dL Normal 0.61-1.60 [facility] Comment on above: Performed By: #### T HYR #### [facility]) [address] [place] [address] VIR TSH 0.66 uIU/mL Normal 0.49-4.67 [facility] Comment on above: Performed By: #### T HYR #### [facility] ([address] [place] [address] VIR TROP I, HIGH SENSITIVITY 1 H OURon 11-08-2024 TROPONIN I, HIGH SENSITIVITY 4 ng/L Normal <21 [facility] Comment on above: Performed By: #### P TT #### [facility] ([address] [place] [address] VIR TROPONIN I, HIGH SENSITIVITY 0 HOURon 11-08-2024 TROPONIN I, HIGH SENSITIVITY 4 ng/L Normal <21 [facility] Comment on above: Performed By: #### T NIHS0 #### [facility] ([address] [place] [address] VIR XR CHEST 1 VWon 11-08-2024 XR [...] Fatima MD on 11/08/2024 5:03 PM Normal [facility] CNPNon 11-07-2024 CNPN Normal [facility] CNPNon 11-01-2024 CNPN Normal [facility] CNCNPATEDon 10-30-2024 CNCNPATED Normal [facility] CNOVSPon 10-27-2024 CNOVSP Normal [facility] CNPNon 10-27-2024 CNPN Normal [facility] NM PET w/ CT Scan Skull [...] PET w/ CT Scan Skull Base to [facility] DATE: 10/18/2024 4:00 PM CLINICAL HISTORY: R91.8. COMPARISON: Outside chest CTA 10/06/2024.. TECHNIQUE: Imaging was obtained from the base of the skull to the mid thigh on a dedicated PET CT unit. Using the nurse manager\X2019\s standard software, data were reconstructed using filtered [...] on 10-16-2024 Miscellaneous Pathology Test See comment [facility] Comment on above: See report. Scanned copy available in EMR. Pathology Request for Lab Co rpon 10-16-2024 Pathology Request for Lab Kaycee Normal [facility] Comment on above: Order Comment: BRONC H BX Result Comment: See report. Scanned copy available in EMR. PERFORMED BY: [place] [address] PATHOLOGIST MARKETING SENIOR RECRUITER ANA LILIA MCLEAN M.D. Performed By: #### M G, HS TROP, DDIMER, TSH3, CMP, BNP, CBC, [id number], PTT, PT #### [address] Order Comment: CYTOL OGY- BRONCH WASHING Family Medicine Office/Clini c Noteon 10-13-2024 Family Medicine Office/Clinic Note Family Medicine Office/Clinic Note HPI Staff Landon is a 63 year old female presenting with Establish Care: History: Any previous diagnosis: HTN, arthritis History of seeing any specialist: [facility] ( [facility]) Urology When was your last doctors visit: June or July Last provider: Alina Cardenas Any recent labs: June or July Health Maintenance UTD: Colonoscopy: 2016- or 2018 PSA: not sure Acute: Current issues/complaints: No refills Had CT done [facility] last Wednesday- found something Biopsy scheduled [...] was previously seen by Alina Ragland in [place]. pt was recently at [facility] ER. Had CT scan of lungs. [...] injury History of kidney stones Hx of senior care use of blood thinners Kidney stones Microhematuria [...] Family History (more content not included)... Normal [facility] Comment on above: Result Comment: Elec tronically [...] esterase Test strip Ql (U) Negative NEGATIVE [facility] MUCUS URINE NONE SEEN NONE SEEN [facility] NITRITE URINE Negative NEGATIVE [facility] pH (U) 6.0 [pH] 5.0 - 9.0 [facility] PROTEIN URINE Negative NEG/TRACE mg/dL [facility] SPECIFIC GRAVITY URINE 1.010 1.005 - 1.025 [facility] SQUAMOUS EPITHELIAL CELL URINE RARE NONE/RARE #/LPF [facility] TBH RBC 0-2 [facility] WBC 0-2 Abnormal NONE SEEN #/HPF [facility] URINE CULTURE INDICATED NO N [facility] UROBILINOGEN URINE 0.2 EU/dL 0.2 - 1.0 EU/dL [facility] COVID Cepheidon 09-08-2024 SARS-CoV-2 (COVID-19) RNA SHIRA+probe Ql (Unsp spec) [facility] Laboratory - Microbiology an d Antimicrobial susceptibilityon 09-08-2024 SARS-CoV-2 (COVID-19) RNA SHIRA+probe Ql (Unsp spec) Negative [facility] No Panel Informationon 09-08 POC Influenza A (PCR) Positive [facility] POC Influenza B (PCR) Negative [facility] X-ray reportOrdered By: Neri Lewis on 08-31-2024 Study report [facility] [place] [address] XRay Report Signed Patient: aJtin Koch II MR#: [id number] : 1960 Acct:[id number] Age/Sex: 63 / M ADM Date: 5 Loc: XDUCLY Room: Type: [facility] Attending Dr: Tonja De Oliveira 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 Copies to: Tonja De Oliveira APRN~ Ordering [...] DO 08/31/24 1022 Signed By: 08/31/24 1022 [facility] XR chest 2V*on 08-31-2024 XR chest 2V* [facility] [place] [address] [place] [address] XRay Report Signed Patient: Jatin Koch II MR#: [id number] : 1960 Acct:[id number] Age/Sex: 63 / M ADM Date: 08/31/24 Loc: XDUC Room: Type: [facility] Attending Dr: Tonja De Oliveira APRN [...] 1022 Signed By: 08/31/24 1022 Normal [facility] CBC AUTO DIFFon 11-10-2022 BASO # 0.1 103/ul Normal 0.0-0.1 [facility] Comment on above: Performed By: #### C BC #### [facility] [address] [address] [address] Jenny Stone Basophils/100 WBC (Bld) 0.6 % Normal 0.2-2.0 [facility] Comment on above: Performed By: #### C BC #### [facility] [address] [address] [address] Jenny Stone EO # 0.2 103/ul Normal 0.0-0.7 [facility] Comment on above: Performed By: #### C BC #### [facility] [address] [place] [address] Dr. Jenny Stone Eosinophils/100 WBC (Bld) 2.4 % Normal 0.9-7.0 [facility] Comment on above: Performed By: #### C BC #### [facility] [address] [place] [address] Dr. Jenny Stone Erythrocyte distribution width (RBC) [Ratio] 13.0 % Normal 11.0-15.0 [facility] Comment on above: Performed By: #### C BC #### [facility] [address] [place] [address] Dr. Jenny Stone Hematocrit (Bld) [Volume fraction] 46.1 % Normal 42.0-54.0 [facility] Comment on above: Performed By: #### C BC #### [facility] [address] [place] [address] Dr. Jenny Stone Hemoglobin (Bld) [Mass/Vol] 15.2 g/dL Normal 14.0-18.0 [facility] Comment on above: Performed By: #### C BC #### [facility] [address] [place] [address] Dr. Jenny Stone IG # 0.04 10e3/ul Critically high 0.00-0.03 [facility] Comment on above: Performed By: #### C BC #### [facility] [address] [place] [address] Dr. Jenny Stone IG % 0.5 % Normal 0.0-0.5 [facility] Comment on above: Performed By: #### C BC #### [facility] [address] [place] [address] Dr. Jenny Stone LYMPH # 2.5 103/ul Normal 1.2-3.8 [facility] Comment on above: Performed By: #### C BC #### [facility] [address] [place] [address] Dr. Jenny Stone Lymphocytes/100 WBC (Bld) 32.4 % Normal 20.5-60.0 [facility] Comment on above: Performed By: #### C BC #### [facility] [address] [place] [address] Dr. Jenny Stone MANUAL DIFF REQ NO Normal [facility] Comment on above: Performed By: #### C BC #### [facility] [address] [place] [address] Dr. Jenny Stone MCH (RBC) [Entitic mass] 29.6 pg Normal 25.9-34.0 [facility] Comment on above: Performed By: #### C BC #### [facility] [address] [place] [address] Dr. Jenny Stone MCHC (RBC) [Mass/Vol] 33.0 g/dL Normal 29.9-35.2 [facility] Comment on above: Performed By: #### C BC #### [facility] [address] [place] [address] Dr. Jenny Stone MCV (RBC) [Entitic vol] 89.7 fL Normal 80.0-94.0 [facility] Comment on above: Performed By: #### C BC #### [facility] [address] [place] [address] Dr. Jenny Stone MONO # 0.7 103/ul Normal 0.3-0.8 [facility] Comment on above: Performed By: #### C BC #### [facility] [address] [place] [address] Dr. Jenny Stone Monocytes/100 WBC (Bld) 8.6 % Normal 1.7-12.0 [facility] Comment on above: Performed By: #### C BC #### [facility] [address] [place] [address] Dr. Jenny Stone NEUT # 4.3 103/ul Normal 1.4-6.5 [facility] Comment on above: Performed By: #### C BC #### [facility] [address] [place] [address] Dr. Jenny Stone Neutrophils/100 WBC (Bld) 55.5 % Normal 43.0-75.0 [facility] Comment on above: Performed By: #### C BC #### [facility] [address] [address] [address] Jenny Stone Platelet mean volume (Bld) [Entitic vol] 9.9 fL Normal 9.5-13.5 [facility] Comment on above: Performed By: #### C BC #### [facility] [address] [place] [address] Dr. Jenny Stone PLT 177 103/ul Normal 150-450 [facility] Comment on above: Performed By: #### C BC #### [facility] [address] [place] [address] Dr. Jenny Stone RBC 5.14 106/ul Normal 4.70-6.10 [facility] Comment on above: Performed By: #### C BC #### [facility] [address] [place] [address] Dr. Jenny Stone WBC 7.8 103/ul Normal 4.0-11.0 [facility] Comment on above: Performed By: #### C BC #### [facility] [address] [place] [address] Dr. Jenny Stone LIPID PROFILEon 11-10-2022 CHOL-HDL RATIO NORM SEE BELOW Normal [facility] Comment on above: Result Comment: 3.3 - 4.4 LOW RISK 4.4 - 7.1 AVERAGE RISK 7.1 - 11.0 MODERATE RISK >11.0 HIGH RISK Performed By: #### C MP, LIPID #### [facility] [address] [place] [address] Dr. Jenny Stone Cholesterol [Mass/Vol] 203 mg/dL Critically high <=200 [facility] Comment on above: Performed By: #### C MP, LIPID #### [facility] [address] [place] [address] Dr. Jenny Stone Cholesterol in HDL [Mass/Vol] 40 mg/dL Normal 40-60 [facility] Comment on above: Performed By: #### C MP, LIPID #### [facility] [address] [place] [address] Dr. Jenny Stone Cholesterol in LDL [Mass/Vol] 142.2 mg/dL Normal [facility] Comment on above: Performed By: #### C MP, LIPID #### [facility] [address] [place] [address] Dr. Jenny Stone Cholesterol.total/Kareen sterol in HDL [Mass ratio] 5.1 {ratio} Normal [facility] Comment on above: Performed By: #### C MP, LIPID #### [facility] [address] [place] [address] Dr. Jenny Stone HDL NORMAL > or = 60 mg/dl - LO W CARDIOVASCULAR RISK <40 mg/dl - HIGH CARDIOVASCULAR RISK Normal [facility] Comment on above: Performed By: #### C MP, LIPID #### [facility] [address] [place] [address] Dr. Jenny Stone LDL CALC NORMAL SEE BELOW Normal [facility] Comment on above: Result Comment: <100 mg/dl OPTIMAL 100 - 129 mg/dl NEAR OR ABOVE OPTIMAL 130 - 159 mg/dl BORDERLINE HIGH 160 - 189 mg/dl HIGH >190 mg/dl VERY HIGH Performed By: #### C MP, LIPID #### [facility] [address] [place] [address] Dr. Jenny Stone Triglyceride [Mass/Vol] 104 mg/dL Normal <=150 T [facility] Comment on above: Performed By: #### C MP, LIPID #### [facility] [address] [place] [address] Dr. Jenny Stone VLDL CALC 20.8 mg/dL Normal [facility] Comment on above: Performed By: #### C MP, LIPID #### [facility] [address] [place] [address] Dr. Jenny Stone PROF 14(COMP METB)on 023 Albumin [Mass/Vol] 3.9 g/dL Normal 3.4-5.0 [facility] Comment on above: Performed By: #### C MP, LIPID #### [facility] [address] [place] [address] Dr. Jenny Stone Albumin/Globulin [Mass ratio] 1.1 {ratio} Normal [facility] Comment on above: Performed By: #### C MP, LIPID #### [facility] [address] [place] [address] Dr. Jenny Stone ALP [Catalytic activity/Vol] 70 U/L Normal 46-116 [facility] Comment on above: Performed By: #### C MP, LIPID #### [facility] [address] [place] [address] Dr. Jenny Stone ALT [Catalytic activity/Vol] 39 U/L Normal 16-63 [facility] Comment on above: Performed By: #### C MP, LIPID #### [facility] [address] [place] [address] Dr. Jenny Stone Anion gap [Moles/Vol] 14.2 mmol/L Normal [facility] Comment on above: Performed By: #### C MP, LIPID #### [facility] [address] [place] [address] Dr. Jenny Stone AST [Catalytic activity/Vol] 23 U/L Normal 15-37 [facility] Comment on above: Performed By: #### C MP, LIPID #### [facility] [address] [place] [address] Dr. Jenny Stone Bilirubin [Mass/Vol] 0.3 mg/dL Normal 0.2-1.0 [facility] Comment on above: Performed By: #### C MP, LIPID #### [facility] [address] [place] [address] Dr. Jenny Stone Calcium [Mass/Vol] 8.5 mg/dL Normal 8.5-10.1 [facility] Comment on above: Performed By: #### C MP, LIPID #### [facility] [address] [place] [address] Dr. Jenny Stone Chloride [Moles/Vol] 102 mmol/L Normal 98-107 [facility] Comment on above: Performed By: #### C MP, LIPID #### [facility] [address] [place] [address] Dr. Jenny Stone CO2 [Moles/Vol] 30.1 mmol/L Normal 21.0-32.0 [facility] Comment on above: Performed By: #### C MP, LIPID #### [facility] [address] [address] [address] Jenny Stone Creatinine [Mass/Vol] 1.00 mg/dL Normal 0.70-1.30 [facility] Comment on above: Performed By: #### C MP, LIPID #### [facility] [address] [address] [address] Jenny Stone EGFR-AF ALGERIAN >60 Normal >=60 [facility] Comment on above: Performed By: #### C MP, LIPID #### [facility] [address] [address] [address] Jenny Stone EGFR-NON AF ALGERIAN >60 Normal >=60 [facility] Comment on above: Performed By: #### C MP, LIPID #### [facility] [address] [address] [address] Jenny Stone Globulin (S) [Mass/Vol] 3.5 g/dL Normal T [facility] Comment on above: Performed By: #### C MP, LIPID #### [facility] [address] [address] [address] Jenny Stone Glucose [Mass/Vol] 89 mg/dL Normal 74-106 [facility] Comment on above: Performed By: #### C MP, LIPID #### [facility] [address] [address] [address] Jenny Stone Potassium [Moles/Vol] 4.3 mmol/L Normal 3.5-5.1 [facility] Comment on above: Performed By: #### C MP, LIPID #### [facility] [address] [address] [address] Jenny Stone Protein [Mass/Vol] 7.4 g/dL Normal 6.4-8.2 [facility] Comment on above: Performed By: #### C MP, LIPID #### [facility] [address] [address] [address] Jenny Stone Sodium [Moles/Vol] 142 mmol/L Normal 136-145 [facility] Comment on above: Performed By: #### C MP, LIPID #### [facility] [address] [place], [place] [address] Dr. Jenny Stone Urea nitrogen [Mass/Vol] 17.0 mg/dL Normal 7.0-18.0 [facility] Comment on above: Performed By: #### C MP, LIPID #### [facility] [address] [place], [place] [address] Dr. Jenny Stone Urea nitrogen/Creatinine [Mass ratio] 17.0 mg/mg Normal [facility] Comment on above: Performed By: #### C MP, LIPID #### [facility] [address] [place], [place] [address] Dr. Jenny Stone US KIDNEYSon 07-01-2022 US KIDNEYS US KIDNEYS EXAM DATE: 06/30/2022 5:55 AM MST COMPARISON: Ultrasound kidney 05/30/2021 INDICATION: Acquired renal cystic disease. TECHNIQUE: Real-time ultrasound scanning of the kidneys and bladder was performed by the senior electrical project manager. Technical Lead static images are submitted for review. FINDINGS: [...] by: WEI ASH Date: 2022-06-30 23:29 Normal [facility] XR KUB 1 VIEWon 07-01-2022 XR [...] by: FREIDA PEREZ Date: 2022-07-01 06:59 Normal [facility] Vital Signs Date Time Vital Sign Value Performing Clinician David richey 02-22-2025 11:45-0400 Body temperature 97.9 [degF] [facility] Work Phone: [facility] 02-22-2025 11:45-0400 Diastolic blood pressure 62 mm[Hg] [facility] Work Phone: [facility] 02-22-2025 11:45-0400 Heart rate 116 /min [facility] Work Phone: [facility] 02-22-2025 11:45-0400 Respiratory rate 16 /min [facility] Work Phone: [facility] 02-22-2025 11:45-0400 SaO2% (BldA) [Mass fraction] 100 % [facility] Work Phone: [facility] 02-22-2025 11:45-0400 Systolic blood pressure 98 mm[Hg] [facility] Work Phone: [facility] 02-21-2025 09:29-0400 Body height 171.6 cm Rasheed Perez MD Work Phone: [facility] 02-21-2025 09:29-0400 Body mass index (BMI) [Ratio] 24.65 kg/m2 Rasheed Perez MD Work Phone: [facility] 02-21-2025 09:29-0400 Body temperature 97.39 [degF] Rasheed Perez MD Work Phone: [facility] 02-21-2025 09:29-0400 Body weight 72.58 kg Rasheed Perez MD Work Phone: [facility] 02-21-2025 09:29-0400 Diastolic blood pressure 72 mm[Hg] Rasheed Perez MD Work Phone: [facility] 02-21-2025 09:29-0400 Heart rate 107 /min Rasheed Perez MD Work Phone: [facility] 02-21-2025 09:29-0400 Respiratory rate 16 /min Rasheed Perez MD Work Phone: [facility] 02-21-2025 09:29-0400 SaO2% (BldA) [Mass fraction] 99 % Rasheed Perez MD Work Phone: [facility] 02-21-2025 09:29-0400 Systolic blood pressure 112 mm[Hg] Rasheed Perez MD Work Phone: [facility] 02-20-2025 10:42-0400 Body mass index (BMI) [Ratio] 24.48 kg/m2 Sheila YUPPTVridge 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.SENIOR WINDOWS ADMINISTRATOR Work Phone: [facility] 02-20-2025 10:42-0400 Body temperature 97.39 [degF] Sheila Bundridge 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.SENIOR WINDOWS ADMINISTRATOR Work Phone: [facility] 02-20-2025 10:42-0400 Body weight 72 kg Sheila Bundridge 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.SENIOR WINDOWS ADMINISTRATOR Work Phone: [facility] 02-20-2025 10:42-0400 Diastolic blood pressure 61 mm[Hg] Sheila Bundridge 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.SENIOR WINDOWS ADMINISTRATOR Work Phone: [facility] 02-20-2025 10:42-0400 Heart rate 114 /min Sheila Bundridge 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.SENIOR WINDOWS ADMINISTRATOR Work Phone: [facility] 02-20-2025 10:42-0400 Respiratory rate 16 /min Sheila Bundridge 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.SENIOR WINDOWS ADMINISTRATOR Work Phone: [facility] 02-20-2025 10:42-0400 SaO2% (BldA) [Mass fraction] 99 % Sheila Bundridge 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.SENIOR WINDOWS ADMINISTRATOR Work Phone: [facility] 02-20-2025 10:42-0400 Systolic blood pressure 94 mm[Hg] Sheila Bundridge 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.SENIOR WINDOWS ADMINISTRATOR Work Phone: [facility] 02-14-2025 11:20-0400 Body height 171.5 cm Tristin Silvia 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.SENIOR WINDOWS ADMINISTRATOR Work Phone: [facility] 02-14-2025 11:20-0400 Body mass index (BMI) [Ratio] 24.52 kg/m2 Tristin Silvia 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.SENIOR WINDOWS ADMINISTRATOR Work Phone: [facility] 02-14-2025 11:20-0400 Body temperature 97 [degF] Tristin Silvia 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.SENIOR WINDOWS ADMINISTRATOR Work Phone: [facility] 02-14-2025 11:20-0400 Body weight 72.12 kg Tristin Silvia 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.SENIOR WINDOWS ADMINISTRATOR Work Phone: [facility] 02-14-2025 11:20-0400 Diastolic blood pressure 69 mm[Hg] Tristin Silvia 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.SENIOR WINDOWS ADMINISTRATOR Work Phone: [facility] 02-14-2025 11:20-0400 Heart rate 123 /min Tristin Silvia 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.SENIOR WINDOWS ADMINISTRATOR Work Phone: [facility] 02-14-2025 11:20-0400 Respiratory rate 16 /min Tristin Silvia 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.SENIOR WINDOWS ADMINISTRATOR Work Phone: [facility] 02-14-2025 11:20-0400 SaO2% (BldA) [Mass fraction] 99 % Tristin Silvia 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.SENIOR WINDOWS ADMINISTRATOR Work Phone: [facility] 02-14-2025 11:20-0400 Systolic blood pressure 100 mm[Hg] Tristin Wong APRN.CNP Work Phone: [facility] 02-14-2025 10:07-0400 Body mass index (BMI) [Ratio] 24.58 kg/m2 Ezra Lizama MD Work Phone: [facility] 02-14-2025 10:07-0400 Body temperature 96.6 [degF] Ezra Lizama MD Work Phone: [facility] 02-14-2025 10:07-0400 Body weight 72.3 kg Ezra Lizama MD Work Phone: [facility] 02-14-2025 10:07-0400 Diastolic blood pressure 66 mm[Hg] Ezra Lizama MD Work Phone: [facility] 02-14-2025 10:07-0400 Heart rate 117 /min Ezra Lizama MD Work Phone: [facility] 02-14-2025 10:07-0400 Respiratory rate 18 /min Ezra Lizama MD Work Phone: [facility] 02-14-2025 10:07-0400 SaO2% (BldA) [Mass fraction] 98 % Ezra Lizama MD Work Phone: [facility] 02-14-2025 10:07-0400 Systolic blood pressure 105 mm[Hg] Ezra Lizama MD Work Phone: [facility] 02-13-2025 12:47-0400 Diastolic blood pressure 61 mm[Hg] Nurse Garcia Work Phone: [facility] 02-13-2025 12:47-0400 Heart rate 123 /min Nurse Mae Work Phone: [facility] 02-13-2025 12:47-0400 Respiratory rate 18 /min Nurse Garcia Work Phone: [facility] 02-13-2025 12:47-0400 SaO2% (BldA) [Mass fraction] 98 % Nurse Mae Work Phone: [facility] 02-13-2025 12:47-0400 Systolic blood pressure 91 mm[Hg] Nurse Mae Work Phone: [facility] 02-09-2025 16:01-0400 Body height 172.7 cm Shola Prabhakarhart 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-SENIOR WINDOWS ADMINISTRATOR Work Phone: [employer] 02-09-2025 16:01-0400 Body mass index (BMI) [Ratio] 25.24 kg/m2 Shola Milan 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-SENIOR WINDOWS ADMINISTRATOR Work Phone: [employer] 02-09-2025 16:01-0400 Body weight 75.3 kg Shola Torret 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-SENIOR WINDOWS ADMINISTRATOR Work Phone: [employer] 02-09-2025 16:01-0400 Diastolic blood pressure 58 mm[Hg] Shola Bjorn 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-SENIOR WINDOWS ADMINISTRATOR Work Phone: [employer] [facility] 02-09-2025 16:01-0400 Heart rate 117 /min Shola Milan 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-SENIOR WINDOWS ADMINISTRATOR Work Phone: [employer] 02-09-2025 16:01-0400 Systolic blood pressure 96 mm[Hg] Shola Torret 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-SENIOR WINDOWS ADMINISTRATOR Work Phone: [employer] 02-09-2025 10:56-0400 Body temperature 97.5 [degF] Chair Mae Work Phone: [facility] 02-09-2025 10:56-0400 Diastolic blood pressure 60 mm[Hg] Chair Mae Work Phone: [facility] 02-09-2025 10:56-0400 Heart rate 113 /min [employer] Work Phone: [facility] Comment on above: controlled a-fib with HR 70-113; pt to s ee cardiology this afternoon 02-09-2025 10:56-0400 Respiratory rate 18 /min Chair Mae Work Phone: [facility] 02-09-2025 10:56-0400 SaO2% (BldA) [Mass fraction] 98 % Chair Mae Work Phone: [facility] 02-09-2025 10:56-0400 Systolic blood pressure 94 mm[Hg] [employer] Work Phone: [facility] 02-08-2025 12:19-0400 Body temperature 97.9 [degF] Chair Mae Work Phone: [facility] 02-08-2025 12:19-0400 Diastolic blood pressure 74 mm[Hg] [employer] Work Phone: [facility] 02-08-2025 12:19-0400 Heart rate 94 /min [employer] Work Phone: [facility] 02-08-2025 12:19-0400 Respiratory rate 16 /min [employer] Work Phone: [facility] 02-08-2025 12:19-0400 SaO2% (BldA) [Mass fraction] 97 % Chair Mae Work Phone: [facility] 02-08-2025 12:19-0400 Systolic blood pressure 137 mm[Hg] [employer] Work Phone: [facility] 02-07-2025 12:19-0400 Body temperature 96.91 [degF] Ezra Lizama MD Work Phone: [facility] 02-07-2025 12:19-0400 Diastolic blood pressure 77 mm[Hg] Ezra Lizama MD Work Phone: [facility] 02-07-2025 12:19-0400 Heart rate 82 /min Ezra Lizama MD Work Phone: [facility] 02-07-2025 12:19-0400 Respiratory rate 16 /min Ezra Lizama MD Work Phone: [facility] 02-07-2025 12:19-0400 SaO2% (BldA) [Mass fraction] 98 % Ezra Lizama MD Work Phone: [facility] 02-07-2025 12:19-0400 Systolic blood pressure 132 mm[Hg] Ezra Lizama MD Work Phone: [facility] 02-06-2025 13:10-0400 Body temperature 98.01 [degF] [employer] Work Phone: [facility] 02-06-2025 13:10-0400 Diastolic blood pressure 73 mm[Hg] Chair Mae Work Phone: [facility] 02-06-2025 13:10-0400 Heart rate 84 /min [employer] Work Phone: [facility] 02-06-2025 13:10-0400 Respiratory rate 16 /min [employer] Work Phone: [facility] 02-06-2025 13:10-0400 SaO2% (BldA) [Mass fraction] 98 % [employer] Work Phone: [facility] 02-06-2025 13:10-0400 Systolic blood pressure 118 mm[Hg] [employer] Work Phone: [facility] 02-05-2025 09:19-0400 Body height 171.5 cm Rasheed Perez MD Work Phone: [facility] 02-05-2025 09:19-0400 Body mass index (BMI) [Ratio] 25.02 kg/m2 Rasheed Perez MD Work Phone: [facility] 02-05-2025 09:19-0400 Body temperature 97.81 [degF] Rasheed Perez MD Work Phone: [facility] 02-05-2025 09:19-0400 Body weight 73.6 kg Rasheed Perez MD Work Phone: [facility] 02-05-2025 09:19-0400 Diastolic blood pressure 63 mm[Hg] Rasheed Perez MD Work Phone: [facility] 02-05-2025 09:19-0400 Heart rate 112 /min Rasheed Perez MD Work Phone: [facility] 02-05-2025 09:19-0400 Respiratory rate 16 /min Rasheed Perez MD Work Phone: [facility] 02-05-2025 09:19-0400 SaO2% (BldA) [Mass fraction] 97 % Rasheed Perez MD Work Phone: [facility] 02-05-2025 09:19-0400 Systolic blood pressure 91 mm[Hg] Rasheed Perez MD Work Phone: [facility] 02-02-2025 11:45-0400 Body temperature 96.91 [degF] Nurse Mae Work Phone: [facility] 02-02-2025 11:45-0400 Diastolic blood pressure 51 mm[Hg] Nurse Mae Work Phone: [facility] 02-02-2025 11:45-0400 Heart rate 71 /min Nurse Mae Work Phone: [facility] 02-02-2025 11:45-0400 Respiratory rate 18 /min Nurse Mae Work Phone: [facility] 02-02-2025 11:45-0400 SaO2% (BldA) [Mass fraction] 96 % Nurse Mae Work Phone: [facility] 02-02-2025 11:45-0400 Systolic blood pressure 97 mm[Hg] Nurse Mae Work Phone: [facility] 01-31-2025 12:10-0400 Body mass index (BMI) [Ratio] 25.3 kg/m2 Ezra Lizama MD Work Phone: [facility] 01-31-2025 12:10-0400 Body temperature 96.91 [degF] Ezra Lizama MD Work Phone: [facility] 01-31-2025 12:10-0400 Body weight 74.4 kg Ezra Lizama MD Work Phone: [facility] 01-31-2025 12:10-0400 Respiratory rate 16 /min Ezra Lizama MD Work Phone: [facility] 01-26-2025 11:30-0400 Body temperature 97.5 [degF] Rasheed Perez MD Work Phone: [facility] 01-26-2025 11:30-0400 Diastolic blood pressure 49 mm[Hg] Rasheed Perez MD Work Phone: [facility] Comment on above: repeat 112/44 manually and resting, BP 9 4/50 standing 01-26-2025 11:30-0400 Heart rate 98 /min Rasheed Perez MD Work Phone: [facility] 01-26-2025 11:30-0400 Respiratory rate 20 /min Rasheed Perez MD Work Phone: [facility] 01-26-2025 11:30-0400 SaO2% (BldA) [Mass fraction] 99 % Rasheed Perez MD Work Phone: [facility] 01-26-2025 11:30-0400 Systolic blood pressure 115 mm[Hg] Rasheed Perez MD Work Phone: [facility] Comment on above: repeat 112/44 manually and resting, BP 9 4/50 standing 01-24-2025 12:09-0400 Body mass index (BMI) [Ratio] 25.26 kg/m2 Ezra Lizama MD Work Phone: [facility] 01-24-2025 12:09-0400 Body temperature 98.2 [degF] Ezra Lizama MD Work Phone: [facility] 01-24-2025 12:09-0400 Body weight 74.3 kg Ezra Lizama MD Work Phone: [facility] 01-24-2025 12:09-0400 Diastolic blood pressure 71 mm[Hg] Ezra Lizama MD Work Phone: [facility] 01-24-2025 12:09-0400 Heart rate 80 /min Ezra Lizama MD Work Phone: [facility] 01-24-2025 12:09-0400 Respiratory rate 18 /min zEra Lizama MD Work Phone: [facility] 01-24-2025 12:09-0400 SaO2% (BldA) [Mass fraction] 97 % Ezra Lizama MD Work Phone: [facility] 01-24-2025 12:09-0400 Systolic blood pressure 102 mm[Hg] Ezra Lizama MD Work Phone: [facility] 01-23-2025 08:17-0400 Body mass index (BMI) [Ratio] 25.64 kg/m2 Sheila Bundridge 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.SENIOR WINDOWS ADMINISTRATOR Work Phone: [facility] 01-23-2025 08:17-0400 Body temperature 97.59 [degF] Sheila Bundridge 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.SENIOR WINDOWS ADMINISTRATOR Work Phone: [facility] 01-23-2025 08:17-0400 Body weight 75.4 kg Sheila Bundridge 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.SENIOR WINDOWS ADMINISTRATOR Work Phone: [facility] 01-23-2025 08:17-0400 Diastolic blood pressure 62 mm[Hg] Sheila Bundridge 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.SENIOR WINDOWS ADMINISTRATOR Work Phone: [facility] 01-23-2025 08:17-0400 Heart rate 110 /min Sheila Bundridge 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.SENIOR WINDOWS ADMINISTRATOR Work Phone: [facility] 01-23-2025 08:17-0400 Respiratory rate 18 /min Sheila Bundridge 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.SENIOR WINDOWS ADMINISTRATOR Work Phone: [facility] 01-23-2025 08:17-0400 SaO2% (BldA) [Mass fraction] 98 % Sheila Bundridge 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.SENIOR WINDOWS ADMINISTRATOR Work Phone: [facility] 01-23-2025 08:17-0400 Systolic blood pressure 92 mm[Hg] Sheila Chanelsilas 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.SENIOR WINDOWS ADMINISTRATOR Work Phone: [facility] 01-18-2025 13:38-0400 Diastolic blood pressure 61 mm[Hg] Ezra Lizama MD Work Phone: [facility] 01-18-2025 13:38-0400 Heart rate 94 /min Ezra Lizama MD Work Phone: [facility] 01-18-2025 13:38-0400 Respiratory rate 18 /min Ezra Lizama MD Work Phone: [facility] 01-18-2025 13:38-0400 SaO2% (BldA) [Mass fraction] 94 % Ezra Lizama MD Work Phone: [facility] 01-18-2025 13:38-0400 Systolic blood pressure 90 mm[Hg] Ezra Lizama MD Work Phone: [facility] 01-18-2025 11:44-0400 Body temperature 99.2 [degF] Dominic Ryder PA-C Work Phone: [facility] [place] 01-18-2025 11:44-0400 Diastolic blood pressure 60 mm[Hg] Dominic Ryder PA-C Work Phone: [facility] [place] 01-18-2025 11:44-0400 Heart rate 84 /min Dominic Ryder PA-C Work Phone: [facility] [place] 01-18-2025 11:44-0400 Respiratory rate 16 /min Dominic Ryder PA-C Work Phone: [facility] [place] 01-18-2025 11:44-0400 SaO2% (BldA) [Mass fraction] 99 % Dominic Ryder PA-C Work Phone: [facility] [place] 01-18-2025 11:44-0400 Systolic blood pressure 116 mm[Hg] Dominic Ryder PA-C Work Phone: [facility] [place] 01-18-2025 05:14-0400 Body weight 74.1 kg Dominic Ryder PA-C Work Phone: [facility] [place] 01-16-2025 15:14-0400 Body height 172.72 cm Dominic Ryder PA-C Work Phone: [facility] [place] 01-15-2025 13:00-0400 Diastolic blood pressure 64 mm[Hg] Dominic Ryder PA-C Work Phone: [facility] [place] 01-15-2025 13:00-0400 Heart rate 78 /min Dominic Ryder PA-C Work Phone: [facility] [place] 01-15-2025 13:00-0400 Respiratory rate 20 /min Dominic Ryder PA-C Work Phone: [facility] 01-15-2025 13:00-0400 SaO2% (BldA) [Mass fraction] 92 % Dominic Ryder PA-C Work Phone: [facility] [facility] [place] 01-15-2025 13:00-0400 Systolic blood pressure 98 mm[Hg] Dominic Ryder PA-C Work Phone: [facility] [place] 01-15-2025 09:33-0400 Body temperature 98.1 [degF] Dominic Ryder PA-C Work Phone: [facility] [place] 01-15-2025 09:32-0400 Body height 172.72 cm Dominic Ryder PA-C Work Phone: [facility] [place] 01-15-2025 09:32-0400 Body weight 82.5 kg Dominic Ryder PA-C Work Phone: [facility] [place] 01-15-2025 08:19-0400 Body height 171.5 cm Rasheed Perez MD Work Phone: [facility] 01-15-2025 08:19-0400 Body temperature 97.11 [degF] Rasheed Perez MD Work Phone: [facility] 01-15-2025 08:19-0400 Diastolic blood pressure 60 mm[Hg] Rasheed Perez MD Work Phone: [facility] 01-15-2025 08:19-0400 Heart rate 129 /min Rasheed Perez MD Work Phone: [facility] 01-15-2025 08:19-0400 Respiratory rate 16 /min Rasheed Perez MD Work Phone: [facility] 01-15-2025 08:19-0400 SaO2% (BldA) [Mass fraction] 98 % Rasheed Perez MD Work Phone: [facility] 01-15-2025 08:19-0400 Systolic blood pressure 88 mm[Hg] Rasheed Perez MD Work Phone: [facility] 01-12-2025 12:20-0400 Body temperature 97.5 [degF] [employer] Work Phone: [facility] 01-12-2025 12:20-0400 Diastolic blood pressure 53 mm[Hg] Chair [employer] Work Phone: [facility] 01-12-2025 12:20-0400 Heart rate 85 /min Chair [employer] Work Phone: [facility] 01-12-2025 12:20-0400 Respiratory rate 16 /min Chair [employer] Work Phone: [facility] 01-12-2025 12:20-0400 SaO2% (BldA) [Mass fraction] 96 % Chair Mae Work Phone: [facility] 01-12-2025 12:20-0400 Systolic blood pressure 94 mm[Hg] Chair Mae Work Phone: [facility] 01-11-2025 12:30-0400 Body temperature 98.2 [degF] Chair [employer] Work Phone: [facility] 01-11-2025 12:30-0400 Diastolic blood pressure 63 mm[Hg] Chair [employer] Work Phone: [facility] 01-11-2025 12:30-0400 Heart rate 85 /min Chair Mae Work Phone: [facility] 01-11-2025 12:30-0400 Respiratory rate 16 /min Chair [employer] Work Phone: [facility] 01-11-2025 12:30-0400 SaO2% (BldA) [Mass fraction] 97 % Chair [employer] Work Phone: [facility] 01-11-2025 12:30-0400 Systolic blood pressure 108 mm[Hg] Chair [employer] Work Phone: [facility] 01-10-2025 12:45-0400 Body temperature 98.1 [degF] Chair [employer] Work Phone: [facility] 01-10-2025 12:45-0400 Diastolic blood pressure 62 mm[Hg] Chair Mae Work Phone: [facility] 01-10-2025 12:45-0400 Heart rate 87 /min Chair [employer] Work Phone: [facility] 01-10-2025 12:45-0400 Respiratory rate 18 /min Chair Mae Work Phone: [facility] 01-10-2025 12:45-0400 SaO2% (BldA) [Mass fraction] 98 % Chair [employer] Work Phone: [facility] 01-10-2025 12:45-0400 Systolic blood pressure 103 mm[Hg] Chair Mae Work Phone: [facility] 01-10-2025 12:14-0400 Body mass index (BMI) [Ratio] 29.27 kg/m2 Ezra Lizama MD Work Phone: [facility] 01-10-2025 12:14-0400 Body weight 86.1 kg Ezra Lizama MD Work Phone: [facility] 01-10-2025 12:12-0400 Diastolic blood pressure 67 mm[Hg] Nurse [employer] Work Phone: [facility] 01-10-2025 12:12-0400 Heart rate 79 /min Nurse Mae Work Phone: [facility] 01-10-2025 12:12-0400 SaO2% (BldA) [Mass fraction] 95 % Nurse Mae Work Phone: [facility] 01-10-2025 12:12-0400 Systolic blood pressure 106 mm[Hg] Nurse [employer] Work Phone: [facility] 01-09-2025 11:52-0400 Body temperature 97.3 [degF] Chair [employer] Work Phone: [facility] 01-09-2025 11:52-0400 Diastolic blood pressure 57 mm[Hg] Chair Mae Work Phone: [facility] 01-09-2025 11:52-0400 Heart rate 87 /min Chair [employer] Work Phone: [facility] 01-09-2025 11:52-0400 Respiratory rate 16 /min Chair [employer] Work Phone: [facility] 01-09-2025 11:52-0400 SaO2% (BldA) [Mass fraction] 96 % Chair [employer] Work Phone: [facility] 01-09-2025 11:52-0400 Systolic blood pressure 90 mm[Hg] Chair Mae Work Phone: [facility] 01-08-2025 14:50-0400 Diastolic blood pressure 71 mm[Hg] Chair Mae Work Phone: [facility] 01-08-2025 14:50-0400 Heart rate 83 /min Chair Mae Work Phone: [facility] 01-08-2025 14:50-0400 Respiratory rate 18 /min Chair Mae Work Phone: [facility] 01-08-2025 14:50-0400 SaO2% (BldA) [Mass fraction] 97 % Chair Mae Work Phone: [facility] 01-08-2025 14:50-0400 Systolic blood pressure 109 mm[Hg] Chair Mae Work Phone: [facility] 01-08-2025 11:04-0400 Body height 171.5 cm Chair Mae Work Phone: [facility] Comment on above: verified by 2 RN's with shoes on 01-08-2025 09:47-0400 Diastolic blood pressure 56 mm[Hg] Rasheed Perez MD Work Phone: [facility] Comment on above: recheck 01-08-2025 09:47-0400 Systolic blood pressure 94 mm[Hg] Rasheed Perez MD Work Phone: [facility] Comment on above: recheck 01-08-2025 09:41-0400 Body height 169.5 cm Rasheed Perez MD Work Phone: [facility] 01-08-2025 09:41-0400 Body mass index (BMI) [Ratio] 28.33 kg/m2 Rasheed Perez MD Work Phone: [facility] 01-08-2025 09:41-0400 Body temperature 97.39 [degF] Rasheed Perez MD Work Phone: [facility] 01-08-2025 09:41-0400 Body weight 81.4 kg Rasheed Perez MD Work Phone: [facility] 01-08-2025 09:41-0400 Heart rate 104 /min Rasheed Perez MD Work Phone: [facility] 01-08-2025 09:41-0400 Respiratory rate 16 /min Rasheed Perez MD Work Phone: [facility] 01-08-2025 09:41-0400 SaO2% (BldA) [Mass fraction] 95 % Rasheed Perez MD Work Phone: [facility] 01-06-2025 12:00-0400 Body temperature 98.2 [degF] Dominic Ryder PA-C Work Phone: [facility] [place] 01-06-2025 12:00-0400 Diastolic blood pressure 64 mm[Hg] Dominic Ryder PA-C Work Phone: [facility] [place] 01-06-2025 12:00-0400 Heart rate 88 /min Dominic Ryder PA-C Work Phone: [facility] [place] 01-06-2025 12:00-0400 Respiratory rate 16 /min Dominic Ryder PA-C Work Phone: [facility] [place] 01-06-2025 12:00-0400 SaO2% (BldA) [Mass fraction] 97 % Dominic Ryder PA-C Work Phone: [facility] [place] 01-06-2025 12:00-0400 Systolic blood pressure 118 mm[Hg] Dominic Ryder PA-C Work Phone: [facility] [place] 01-06-2025 06:00-0400 Body weight 82.9 kg Dominic Ryder PA-C Work Phone: [facility] [place] 01-03-2025 15:12-0400 Body height 170.18 cm Dominic Ryder PA-C Work Phone: [facility] [place] 01-02-2025 20:46-0400 Body height 170.18 cm Dominic Ryder PA-C Work Phone: [facility] [place] 01-02-2025 20:46-0400 Body temperature 98.7 [degF] Dominic Ryder PA-C Work Phone: [facility] [place] 01-02-2025 20:46-0400 Body weight 82.4 kg Dominic Ryder PA-C Work Phone: [facility] [place] 01-02-2025 20:46-0400 Diastolic blood pressure 56 mm[Hg] Dominic Ryder PA-C Work Phone: [facility] [place] 01-02-2025 20:46-0400 Heart rate 82 /min Dominic Ryder PA-C Work Phone: [facility] [place] 01-02-2025 20:46-0400 Respiratory rate 18 /min Dominic Ryder PA-C Work Phone: [facility] [place] 01-02-2025 20:46-0400 SaO2% (BldA) [Mass fraction] 98 % Dominic Ryder PA-C Work Phone: [facility] [place] 01-02-2025 20:46-0400 Systolic blood pressure 102 mm[Hg] Dominic Ryder PA-C Work Phone: [facility] [place] 01-02-2025 10:53-0400 Body height 169.5 cm Rasheed Perez MD Work Phone: [facility] 01-02-2025 10:53-0400 Body mass index (BMI) [Ratio] 27.81 kg/m2 Rasheed Perez MD Work Phone: [facility] 01-02-2025 10:53-0400 Body temperature 97.9 [degF] Rasheed Perez MD Work Phone: [facility] 01-02-2025 10:53-0400 Body weight 79.9 kg Rasheed Perez MD Work Phone: [facility] 01-02-2025 10:53-0400 Diastolic blood pressure 54 mm[Hg] Rasheed Perez MD Work Phone: [facility] 01-02-2025 10:53-0400 Heart rate 69 /min Rasheed Perez MD Work Phone: [facility] 01-02-2025 10:53-0400 Respiratory rate 16 /min Rasheed Perez MD Work Phone: [facility] 01-02-2025 10:53-0400 SaO2% (BldA) [Mass fraction] 100 % Rasheed Perez MD Work Phone: [facility] 01-02-2025 10:53-0400 Systolic blood pressure 96 mm[Hg] Rasheed Perez MD Work Phone: [facility] 12-26-2024 13:53-0400 Diastolic blood pressure 62 mm[Hg] Rasheed Perez MD Work Phone: [facility] Comment on above: recheck 12-26-2024 13:53-0400 Systolic blood pressure 101 mm[Hg] Rasheed Perez MD Work Phone: [facility] Comment on above: recheck 12-26-2024 13:50-0400 Body mass index (BMI) [Ratio] 28.54 kg/m2 Rasheed Perez MD Work Phone: [facility] 12-26-2024 13:50-0400 Body temperature 97.3 [degF] Rasheed Perez MD Work Phone: [facility] 12-26-2024 13:50-0400 Body weight 82 kg Rasheed Perez MD Work Phone: [facility] 12-26-2024 13:50-0400 Heart rate 97 /min Rasheed Perez MD Work Phone: [facility] 12-26-2024 13:50-0400 Respiratory rate 18 /min Rasheed Perez MD Work Phone: [facility] 12-26-2024 13:50-0400 SaO2% (BldA) [Mass fraction] 96 % Rasheed Perez MD Work Phone: [facility] 12-07-2024 14:31-0400 Body height 172.7 cm Shola Milan 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-SENIOR WINDOWS ADMINISTRATOR Work Phone: [employer] 12-07-2024 14:31-0400 Body mass index (BMI) [Ratio] 28.59 kg/m2 Shola Milan 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-SENIOR WINDOWS ADMINISTRATOR Work Phone: [employer] 12-07-2024 14:31-0400 Body weight 85.28 kg Shola Milan 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-SENIOR WINDOWS ADMINISTRATOR Work Phone: [employer] 12-07-2024 14:31-0400 Diastolic blood pressure 62 mm[Hg] Shola Torret 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-SENIOR WINDOWS ADMINISTRATOR Work Phone: [employer] 12-07-2024 14:31-0400 Heart rate 90 /min Shola Torret 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-SENIOR WINDOWS ADMINISTRATOR Work Phone: [employer] 12-07-2024 14:31-0400 SaO2% (BldA) [Mass fraction] 97 % Shola Milan 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-SENIOR WINDOWS ADMINISTRATOR Work Phone: [employer] 12-07-2024 14:31-0400 Systolic blood pressure 110 mm[Hg] Shola Milan 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-SENIOR WINDOWS ADMINISTRATOR Work Phone: [employer] 11-22-2024 12:31-0400 Body height 172.7 cm Shola Milan 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-SENIOR WINDOWS ADMINISTRATOR Work Phone: [employer] 11-22-2024 12:31-0400 Diastolic blood pressure 50 mm[Hg] Shola Milan 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-SENIOR WINDOWS ADMINISTRATOR Work Phone: [employer] 11-22-2024 12:31-0400 Heart rate 92 /min Shola Torret 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-SENIOR WINDOWS ADMINISTRATOR Work Phone: [employer] 11-22-2024 12:31-0400 SaO2% (BldA) [Mass fraction] 98 % Shola Bjorn 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-SENIOR WINDOWS ADMINISTRATOR Work Phone: [employer] 11-22-2024 12:31-0400 Systolic blood pressure 108 mm[Hg] Shola Milan 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-SENIOR WINDOWS ADMINISTRATOR Work Phone: [facility] [employer] [facility] 11-17-2024 14:23-0400 Body height 169.5 cm Rasheed Perez MD Work Phone: [facility] 11-17-2024 14:23-0400 Body mass index (BMI) [Ratio] 30.25 kg/m2 Rasheed Perez MD Work Phone: [facility] 11-17-2024 14:23-0400 Body temperature 98.01 [degF] Rasheed Perez MD Work Phone: [facility] 11-17-2024 14:23-0400 Body weight 86.9 kg Rasheed Perez MD Work Phone: [facility] 11-17-2024 14:23-0400 Diastolic blood pressure 67 mm[Hg] Rasheed Perez MD Work Phone: [facility] 11-17-2024 14:23-0400 Heart rate 105 /min Rasheed Perez MD Work Phone: [facility] 11-17-2024 14:23-0400 Respiratory rate 16 /min Rasheed Perez MD Work Phone: [facility] 11-17-2024 14:23-0400 SaO2% (BldA) [Mass fraction] 99 % Rasheed Perez MD Work Phone: [facility] 11-17-2024 14:23-0400 Systolic blood pressure 100 mm[Hg] Rasheed Perez MD Work Phone: [facility] 11-17-2024 12:59-0400 Body mass index (BMI) [Ratio] 30.25 kg/m2 Ezra Lizama MD Work Phone: [facility] 11-17-2024 12:59-0400 Body weight 86.9 kg Ezra Lizama MD Work Phone: [facility] 11-15-2024 10:37-0400 Body mass index (BMI) [Ratio] 30.53 kg/m2 Alexandre Robertson MD Work Phone: [facility] 11-15-2024 10:37-0400 Body temperature 97.2 [degF] Alexandre Robertson MD Work Phone: [facility] 11-15-2024 10:37-0400 Body weight 87.7 kg Alexandre Robertson MD Work Phone: [facility] 11-15-2024 10:37-0400 Diastolic blood pressure 66 mm[Hg] Alexandre Robertson MD Work Phone: [facility] 11-15-2024 10:37-0400 Heart rate 85 /min Alexandre Robertson MD Work Phone: [facility] 11-15-2024 10:37-0400 Respiratory rate 20 /min Alexandre Robertson MD Work Phone: [facility] 11-15-2024 10:37-0400 SaO2% (BldA) [Mass fraction] 98 % Alexandre Robertson MD Work Phone: [facility] 11-15-2024 10:37-0400 Systolic blood pressure 111 mm[Hg] Alexandre Robertson MD Work Phone: [facility] 11-08-2024 14:40-0400 Body height 172.7 cm Maritza Best MD Work Phone: [facility] 11-08-2024 14:40-0400 Body mass index (BMI) [Ratio] 31.78 kg/m2 Maritza Best MD Work Phone: [facility] 11-08-2024 14:40-0400 Body weight 94.8 kg Maritza Best MD Work Phone: [facility] 11-08-2024 14:40-0400 Diastolic blood pressure 72 mm[Hg] Maritza Best MD Work Phone: [facility] 11-08-2024 14:40-0400 Heart rate 105 /min Maritza Best MD Work Phone: [facility] 11-08-2024 14:40-0400 SaO2% (BldA) [Mass fraction] 95 % Maritza Best MD Work Phone: [facility] 11-08-2024 14:40-0400 Systolic blood pressure 104 mm[Hg] Maritza Best MD Work Phone: [facility] 10-27-2024 08:49-0400 Body height 169.5 cm Rasheed Perez MD Work Phone: [facility] Comment on above: verified no shoes 10-27-2024 08:49-0400 Body mass index (BMI) [Ratio] 30.18 kg/m2 Rasheed Perez MD Work Phone: [facility] 10-27-2024 08:49-0400 Body temperature 97.7 [degF] Rasheed Perez MD Work Phone: [facility] 10-27-2024 08:49-0400 Body weight 86.7 kg Rasheed Perez MD Work Phone: [facility] 10-27-2024 08:49-0400 Diastolic blood pressure 64 mm[Hg] Rasheed Perez MD Work Phone: [facility] 10-27-2024 08:49-0400 Heart rate 95 /min Rasheed Perez MD Work Phone: [facility] 10-27-2024 08:49-0400 Respiratory rate 16 /min Rasheed Perez MD Work Phone: [facility] 10-27-2024 08:49-0400 SaO2% (BldA) [Mass fraction] 96 % Rasheed Perez MD Work Phone: [address]16-2025 08:49-0400 Systolic blood pressure 100 mm[Hg] Rasheed Perez MD Work Phone: [facility] 09-08-2024 11:32-0400 Body height 172.72 cm Alina Ragland MD Work Phone: [facility] [place] 09-08-2024 11:32-0400 Body mass index (BMI) [Ratio] 31.5 kg/m2 Alina Ragland MD Work Phone: [facility] [place] 09-08-2024 11:32-0400 Body temperature 97.3 [degF] Alina Ragland MD Work Phone: [facility] [place] 09-08-2024 11:32-0400 Body weight 94 kg Alina Ragland MD Work Phone: [facility] [place] 09-08-2024 11:32-0400 Diastolic blood pressure 64 mm[Hg] Alina Ragland MD Work Phone: [facility] [place] 09-08-2024 11:32-0400 Heart rate 115 /min Alina Ragland MD Work Phone: [facility] [place] 09-08-2024 11:32-0400 Respiratory rate 18 /min Alina Ragland MD Work Phone: [facility] [place] 09-08-2024 11:32-0400 SaO2% (BldA) [Mass fraction] 96 % Alina Ragland MD Work Phone: [facility] [place] 09-08-2024 11:32-0400 Systolic blood pressure 91 mm[Hg] Alina Ragland MD Work Phone: [facility] [place] 08-31-2024 09:46-0400 Body height 172.72 cm Alina Ragland MD Work Phone: [facility] [place] 08-31-2024 09:46-0400 Body mass index (BMI) [Ratio] 32.6 kg/m2 Alina Ragland MD Work Phone: [facility] [place] 08-31-2024 09:46-0400 Body temperature 98.8 [degF] Alina Ragland MD Work Phone: [facility] [place] 08-31-2024 09:46-0400 Body weight 97.52 kg Alina Ragland MD Work Phone: [facility] [place] 08-31-2024 09:46-0400 Diastolic blood pressure 64 mm[Hg] Alina Ragland MD Work Phone: [facility] [place] 08-31-2024 09:46-0400 Heart rate 62 /min Alina Ragland MD Work Phone: [facility] [place] 08-31-2024 09:46-0400 Respiratory rate 18 /min Alina Ragland MD Work Phone: [facility] [place] 08-31-2024 09:46-0400 SaO2% (BldA) [Mass fraction] 98 % Alina Ragland MD Work Phone: [facility] [place] 08-31-2024 09:46-0400 Systolic blood pressure 148 mm[Hg] Alina Ragland MD Work Phone: [facility] [place] 06-29-2023 08:51-0500 Diastolic blood pressure 84 mm[Hg] VICTORIA FLORES [facility] 06-29-2023 08:51-0500 Mean blood pressure 107 mm[Hg] VICTORIA SANDRA [facility] 06-29-2023 08:51-0500 Systolic blood pressure 153 mm[Hg] VICTORIA SANDRA [facility] 06-29-2023 08:41-0500 Blood Pressure Location VICTORIA FLORES [facility] 06-29-2023 08:41-0500 Diastolic blood pressure 87 mm[Hg] VICTORIA FLORES [facility] 06-29-2023 08:41-0500 Heart rate 99 /min VICTORIA FLORES [facility] 06-29-2023 08:41-0500 Systolic blood pressure 153 mm[Hg] VICTORIA FLORES [facility] Encounters Encounter Date Encounter Type Care Provider Facility Start: 03-28-2025 End: 03-28-2025 ambulatory CARLOS COLLINS Facility:[facility] Start: 03-28-2025 End: 03-29-2025 Telephone encounter Gayathri Saeed [employer] [facility] Comment on above: Cx PT 03/29/25; Conf irmation Start: 03-26-2025 End: 03-26-2025 Telephone encounter Akbar Blocksarath [employer] [facility] Comment on above: PT CX 03/26 Start: 03-23-2025 ambulatory CARLOS COLLINS Facili ty:[facility] Start: 03-22-2025 End: 03-22-2025 Bamboo flowsheet Terra Rashid PT [facility] Start: 03-22-2025 End: 03-22-2025 Bamboo flowsheet Terra Rashid PT [facility] Start: 03-22-2025 End: 03-22-2025 ambulatory Terra Rashid PT [facility] Comment on above: Weakness (Primary Dx ); Adverse effect of antineoplastic and immunosuppressive drugs, initial encounter; Other fatigue Start: 03-20-2025 End: 03-21-2025 ambulatory CARLOS COLLINS Facility:[facility] Start: 03-20-2025 End: 03-20-2025 ambulatory CARLOS COLLINS Facility:[facility] Start: 03-19-2025 End: 03-19-2025 Bamboo flowsheet Akbar Monreal [employer] [facility] Start: 03-19-2025 End: 03-19-2025 Bamboo flowsheet Akbar Monreal [employer] [facility] Start: 03-19-2025 End: 03-19-2025 ambulatory Akbar Monreal SECTION GANG WORKER [facility] Comment on above: Weakness (Primary Dx ); Adverse effect of antineoplastic and immunosuppressive drugs, initial encounter; Other fatigue Start: 03-16-2025 End: 03-16-2025 Bamboo flowsheet Gayathri Saeed SECTION GANG WORKER [facility] Start: 03-16-2025 End: 03-16-2025 Bamboo flowsheet Gayathri Saeed SECTION GANG WORKER [facility] Start: 03-16-2025 End: 03-16-2025 ambulatory Gayathri Saeed SECTION GANG WORKER [facility] Comment on above: Weakness (Primary Dx ); Adverse effect of antineoplastic and immunosuppressive drugs, initial encounter; Other fatigue Start: 03-14-2025 End: 03-14-2025 Clinical Support [facility] Ppc Pacer [facility] Comment on above: Pacemaker- South English (P rimary Dx) Start: 03-13-2025 End: 03-13-2025 Bamboo flowsheet Gayathri Saeed SECTION GANG WORKER [facility] Start: 03-13-2025 End: 03-13-2025 Bamboo flowsheet Gayathri Saeed SECTION GANG WORKER [facility] Start: 03-13-2025 End: 03-13-2025 ambulatory Gayathri Saeed SECTION GANG WORKER [facility] Comment on above: [...] 03-01-2025 End: 03-02-2025 ambulatory CARLOS PERRY DENNIS Facility:[facility] Start: 02-27-2025 End: 03-01-2025 Telephone encounter Ezra Lizama MD Work Phone: Radiation Oncology Comment on above: Patient Update radiation completed Start: 02-23-2025 End: 02-23-[address] Work Phone: Nutrition Therapy Start: 02-23-2025 End: 02-23-[address]25 Nutrition [address]ie Bunn [address] Work Phone: Nutrition Therapy Comment on above: Nutrition Counseling Start: 02-23-2025 End: 02-23-2025 ambulatory CARLOS PERRY DENNIS Facility:[facility] Start: 02-22-2025 End: 02-22-2025 [facility] Facility:[facility] Start: 02-22-2025 End: 02-22-2025 Nursing evaluation [...] Start: 02-21-2025 End: 02-21-2025 ambulatory CARLOS COLLINS Facility:[facility] Start: 02-20-2025 End: 02-20-2025 Telephone encounter Ezra [...] End: 02-20-2025 Patient encounter procedure Sheila Freeman APRN.SENIOR WINDOWS ADMINISTRATOR Work Phone: Palliative Medicine Comment on above: [...] (Primary Dx) Start: 02-19-2025 End: 02-19-2025 [facility]ulatory [facility] Facility:[facility] Start: 02-19-2025 [facility] Start: 02-16-2025 End: 02-16-2025 Nursing evaluation of patient and report Nurse Cindy Garcia Work Phone: Radiation Oncology Comment on above: Malignant neoplasm o f lower lobe of right lung (HCC) (Primary Dx) Start: 02-16-2025 End: 02-16-2025 ambulatory [facility] Facility:[facility] Start: 02-15-2025 End: 02-15-2025 Patient encounter procedure [facility] Provider [facility] Start: 02-15-2025 End: 02-15-2025 Telephone encounter Rasheed Perez MD Work Phone: Hematology/Oncology Comment on above: FMLA Paperwork Start: 02-15-2025 End: 02-15-2025 Nursing evaluation of patient and report Nurse Cindy Garcia Work Phone: Radiation Oncology Comment on above: Malignant neoplasm o f lower lobe of right lung (HCC) (Primary Dx) Start: 02-15-2025 End: 02-15-2025 ambulatory [facility] Facility:[facility] Start: 02-14-2025 End: 02-26-2025 Telephone encounter Gaetano Nathan MD [facility] Comment on above: Future Appointment Financial Assistance Start: 02-14-2025 End: 02-14-2025 ambulatory [facility] Facility:[facility] Start: 02-14-2025 End: 02-14-2025 Office outpatient [...] Start: 02-14-2025 End: 02-14-2025 ambulatory CARLOS COLLINS Facility:[facility] Start: 02-13-2025 End: 02-13-2025 Telephone encounter [...] [facility] Comment on above: Pacemaker- [place] (P rimary Dx) Start: 02-09-2025 End: 02-09-2025 [...] Start: 02-05-2025 End: 02-05-2025 ambulatory CARLOS PERRY [facility] Facility:[facility] Start: 02-05-2025 End: 02-05-2025 Nursing evaluation [...] Start: 02-02-2025 End: 02-02-2025 ambulatory [facility] Facility:[facility] Start: 02-02-2025 End: 02-02-2025 Nursing evaluation [...] (Primary Dx) Start: 02-01-2025 End: 02-01-2025 ambulatory [place] Facility:[facility] Start: 01-31-2025 End: 01-31-2025 Patient encounter procedure [...] (Primary Dx) Start: 01-31-2025 End: 01-31-2025 ambulatory [employer] Facility:[facility] Start: 01-30-2025 End: 01-30-2025 Telephone encounter [...] (Primary Dx) Start: 01-29-2025 End: 01-29-2025 [facility] Start: 01-26-2025 End: 01-30-2025 Telephone encounter Rasheed Perez MD Work Phone: Radiation Oncology Comment on above: Patient Update; Bandar LEONE Paperwork Start: 01-26-2025 End: 01-26-2025 ambulatory Chair eFrmín Salomonusky Work Phone: Hematology/Oncology Comment on above: Fever in adult Start: 01-26-2025 End: 01-26-2025 Nursing evaluation of patient and report Law Salomon Work Phone: Hematology/Oncology Comment on above: UTI symptoms (Primar y Dx); Fever in adult Malignant neoplasm o f lower lobe of right lung (HCC) (Primary Dx) Start: 01-26-2025 End: 01-26-2025 ambulatory [facility] Facility:[facility] Start: 01-26-2025 End: 01-26-2025 Subsequent hospital [...] End: 01-25-2025 ambulatory [facility] Facility:[facility] Start: 01-24-2025 End: 01-25-2025 Telephone encounter [...] E-mail encounter from caregiver Ricardo Alva RN [facility] Start: 01-23-2025 End: 01-23-2025 Patient encounter procedure Madison Gagnon T Hematology/Oncology Start: 01-23-2025 End: 01-23-2025 Nursing evaluation of patient and report Nurse Cindy Garcia Work Phone: Radiation Oncology Comment on above: Malignant neoplasm o f lower lobe of right lung (HCC) (Primary Dx) Start: 01-23-2025 End: 01-23-2025 ambulatory Madison Gagnon [facility] Hematology/Oncology Comment on above: Muscle soreness (Stella adriana Dx) palliative care info rmation Start: 01-23-2025 End: 01-23-2025 ambulatory CARLOS PERRY [facility] Facility:[facility] Start: 01-23-2025 End: 01-23-2025 Patient encounter procedure Sheila Freeman APRN.CNP Work Phone: Palliative Medicine Comment on above: Palliative care by leigha pecialist (Primary Dx); Malignant neoplasm of lower lobe of right lung (HCC); Neoplasm related pain; Constipation due to opioid therapy; Chronic cough; SOB (shortness of breath); Anorexia; Rhinorrhea Start: 01-23-2025 End: 01-23-2025 [facility] Start: 01-22-2025 End: 01-22-2025 [facility]ulatory [facility] Facility[facility] Start: 01-22-2025 End: 01-22-2025 Nursing evaluation of patient and report Nurse Cindy Garcia Work Phone: Radiation Oncology Comment on above: Malignant neoplasm o f lower lobe of right lung (HCC) (Primary Dx) Start: 01-22-2025 End: 02-05-2025 ambulatory Carlos Collins Facility::[id number] Start: 01-19-2025 End: 01-22-2025 ambulatory CARLOS COLLINS Facility:[facility] Start: 01-18-2025 End: 01-18-2025 ambulatory CARLOS PERRY DENNIS Facility:[facility] Start: 01-18-2025 End: 01-18-2025 Patient encounter procedure Ezra Lizama MD Work Phone: Radiation Oncology Comment on above: Malignant neoplasm o f lower lobe of right lung (HCC) (Primary Dx) Start: 01-15-2025 End: 01-23-2025 Telephone encounter Ileana Bear RN Work Phone: Hematology/Oncology Comment on above: Care Coordination (H ospital Admission) Start: 01-15-2025 End: 01-18-2025 Evaluation and management of inpatient Hayes Olivarez DO -[facility] [place] [facility] Work Phone: Start: 01-15-2025 Non-patient / [facility] Start: 01-15-2025 End: 01-15-2025 ambulatory CARLOS COLLINS Facility:[facility] Start: 01-15-2025 End: 01-15-2025 Office outpatient visit 25 minutes Rasheed Perez MD Work Phone: Hematology/Oncology Comment on above: Malignant neoplasm o f lower lobe of right lung (HCC) (Primary Dx) Start: 01-15-2025 End: 01-15-2025 ambulatory CARLOS COLLINS Facility:[facility] Start: 01-12-2025 End: 01-12-2025 Nursing evaluation [...] Start: 01-11-2025 End: 01-11-2025 ambulatory Chair 13 [employer] Work Phone: Hematology/Oncology Comment on above: Malignant [...] Start: 01-10-2025 End: 01-10-2025 ambulatory Chair 13 [employer] Work Phone: Hematology/Oncology Comment on above: Malignant neoplasm o f lower lobe of right lung (HCC) (Primary Dx) Start: 01-09-2025 End: 01-30-2025 Telephone encounter Neha Goodrich RN Hematology/Oncology Comment on above: Customs Opener Verifier Packer - O ther (Etoposide reaction) Start: 01-09-2025 [...] encounter procedure VICTORIA FLORES [facility] Start: 01-08-2025 End: 01-08-2025 Patient encounter procedure Oswaldo Ghosh MD Work Phone: Radiation Oncology Comment on above: Malignant neoplasm o f lower lobe of right lung (HCC) (Primary Dx) Start: 01-08-2025 End: 01-08-2025 ambulatory CARLOS COLLINS Facility:[facility] Start: 01-08-2025 End: 01-08-2025 Telephone encounter [...] Start: 01-05-2025 End: 01-16-2025 ambulatory Carlos Collins Facility:CD:[id number] Start: 01-05-2025 End: 01-08-2025 Telephone encounter [...] management of inpatient Norah Whittaker MD -[facility] [place] [facility] Work Phone: Start: 01-02-2025 End: 01-02-2025 [...] (Primary Dx) Start: 12-29-2024 End: 12-29-2024 ambulatory CATRAHCO YOUSSEF Facility:[facility] Start: 12-26-2024 End: 12-26-2024 Patient encounter [...] Dx) Start: 12-26-2024 End: 12-26-2024 ambulatory CARLOS OCLLINS Facility:[facility] Start: 12-25-2024 End: 01-08-2025 Telephone encounter Xiomara Wright RN [facility] Comment on above: New AF; PPM upper ra te behavior Start: 12-25-2024 End: 01-03-2025 ambulatory CATRACHO YOUSSEF Facility::[id number] Start: 12-22-2024 End: 12-22-2024 Telephone encounter [...] End: 12-11-2024 Patient encounter procedure Ccf Provider [facility] Start: 12-08-2024 End: 12-15-2024 Patient encounter procedure [...] (Primary Dx) Start: 12-08-2024 End: 12-08-2024 [facility] Start: 12-07-2024 End: 12-07-2024 Postop follow up visit related to original px Shola Milan 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-SENIOR WINDOWS ADMINISTRATOR Work Phone: [facility] Comment on above: Pacemaker (Primary D x); AV block; Squamous cell carcinoma of lung, unspecified laterality ([facility]) Start: 12-07-2024 End: 12-07-2024 Clinical Support Ppc Pacer [facility] Comment on above: Pacemaker (Primary D x) Start: 12-07-2024 ambulatory [facility] Facili ty:[facility] Start: 12-07-2024 End: 12-07-2024 Subsequent hospital visit by physician Arrival Time Radiology Work Phone: Radiology Pet CT Comment on above: Malignant neoplasm o f lower lobe of right lung (HCC) [C34.31] Start: 12-05-2024 End: 12-08-2024 Telephone encounter Blanquita Hargrove RN Work Phone: Hematology/Oncology Comment on above: Care Coordination (C linical update) Start: 12-05-2024 End: 12-05-2024 ambulatory [facility] Facility:[facility] Start: 11-28-2024 End: 11-29-2024 Telephone encounter [...] visit related to original px Shola Milan 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-SENIOR WINDOWS ADMINISTRATOR Work Phone: [facility] Comment on above: AV block (Primary Dx ); Squamous cell carcinoma of lung, unspecified laterality (CMS-HCC); Pacemaker Start: 11-22-2024 End: 11-22-2024 Clinical Support Ppc Pacer [facility] Comment on above: Pacemaker- [place] (P rimary Dx) Start: 11-21-2024 End: 11-21-2024 ambulatory [facility] Start: 11-20-2024 End: 11-20-2024 Telephone encounter Carolina Cooney RN Cardiology Start: 11-20-2024 End: 11-20-2024 ambulatory CARLOS COLLINS Facility:[facility] Start: 11-20-2024 End: 11-20-2024 Subsequent hospital [...] Patient Education Start: 11-15-2024 ambulatory ALINA A [facility] Start: 11-15-2024 End: 11-15-2024 Chart abstracting Shola Milan 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-SENIOR WINDOWS ADMINISTRATOR Work Phone: [facility] Start: 11-15-2024 End: 11-15-2024 Patient encounter status [id number] Main Work Phone: [facility] Start: 11-15-2024 End: 11-15-2024 ambulatory [facility] Start: 11-15-2024 [facility] other [facility]ced[facility] Start: 11-15-2024 End: 11-15-2024 Patient encounter procedure Alexandre Robertson MD Work Phone: Pulmonary Medicine Comment on above: 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); Bronchial obstruction Start: 11-15-2024 End: 11-15-2024 ambulatory CARLOS BERKLEY [facility] Facility:[facility] Start: 11-09-2024 End: 11-09-2024 ambulatory [facility] Start: 11-09-2024 End: 11-09-2024 Evaluation and management of inpatient [facility] Start: 11-08-2024 End: 11-08-2024 Emergency department patient visit [facility] Start: 11-08-2024 End: 11-08-2024 Office outpatient new 60 minutes Maritza Best MD Work Phone: [facility] Comment on above: Syncope, unspecified syncope type (Primary Dx) Start: 11-08-2024 End: 11-08-2024 ambulatory Carlos L Dennis Facility[facility] Start: 11-08-2024 End: 11-08-2024 ambulatory Carlos L Dennis Facility:[facility] [place] Start: 11-07-2024 End: 11-08-2024 Telephone encounter Victoria Collado CMA [facility] Comment on above: FMLA Paperwork Start: 11-07-2024 End: 12-12-2024 ambulatory Acrlos L Dennis Facility:[id number] Start: 2024 ambulatory Carlos L Dennis Facility: [facility] [place] Start: 10-30-2024 End: 10-30-2024 ambulatory CARLOS BERKLEY DENNIS Facility:[facility] Start: 10-27-2024 End: 11-28-2024 Telephone encounter Janell An Pulmonary Medicine Comment on above: Bronchoscopy Referra l Start: 10-27-2024 End: 10-27-2024 Office outpatient new 60 minutes Rasheed Perez MD Work Phone: Hematology/Oncology Comment on above: Malignant neoplasm o f lower lobe of right lung (HCC) (Primary Dx) Start: 10-27-2024 End: 10-27-2024 ambulatory CARLOS PERRY DENNIS Facility:[facility] Start: 10-25-2024 End: 10-25-2024 Chart abstracting Rasheed Perez MD Work Phone: Hematology/Oncology Start: 10-18-2024 End: 01-16-2025 ambulatory CHIP Gary RAVEN Facility:[facility] Start: 10-16-2024 End: 10-16-2024 ambulatory Alina Rgaland MD Work Phone: [facility] Work Phone: Start: 10-16-2024 End: 10-16-2024 Departed Referred Alina Ragland MD Work Phone: [facility] Start: 10-13-2024 End: 10-13-2024 ambulatory Carlos L Dennis [facility] Start: 10-10-2024 ambulatory Carlos Dennis Facility:[facility] [place] Start: 10-07-2024 End: 10-07-2024 Clinisync Result Encounter Marvel SESAY Work Phone: [facility] Unsolicited Start: 10-07-2024 End: 10-07-2024 Clinisync Result Encounter Marvel SESAY Work Phone: [facility] Unsolicited Start: 10-06-2024 End: 10-08-2024 Clinisync Result Encounter Mavrel SESAY Work Phone: [facility] Unsolicited Start: 10-06-2024 End: 10-08-2024 Clinisync Result Encounter Marvel SESAY Work Phone: [facility] Unsolicited Start: 09-08-2024 End: 09-08-2024 ambulatory Alina Ragland MD Work Phone: [facility] Work Phone: Start: 09-08-2024 End: 09-08-2024 Patient encounter procedure Alina Ragland MD Work Phone: [facility] [place] Work Phone: Start: 08-31-2024 End: 08-31-2024 ambulatory Alina Ragland MD Work Phone: [facility] Work Phone: Start: 08-31-2024 End: 08-31-2024 Patient encounter procedure Alina Ragland MD Work Phone: [facility] [place] Work Phone: Start: 07-13-2024 Non-patient / Non-visit Cinthya Ragland MD Work Phone: [facility] Work Phone: Start: 06-29-2023 End: 06-29-2023 Patient encounter procedure VICTORIA FLORES [facility] Start: 11-11-2022 Encounter for genera l adult medical examination without abnormal findings DR ALINA RAGLAND [facility] Start: 11-10-2022 End: 11-11-[address] ALINA RAGLAND Facility: Start: 11-10-2022 End: 11-11-2022 Encounter for general adult medical examination without abnormal findings DR ALINA RAGLAND Facility:[facility] Start: 06-30-2022 End: 07-01-2022 ambulatory VICTORIA FLORES Facility:[facility] Start: 06-17-2022 End: 06-18-2022 ambulatory VICTORIA FLORES Facility:[facility] Procedures Date Procedure Procedure Detail Performing Clinician Start: 02-09-2025 Ecg routine ecg w/le ast 12 lds w/i&r Shola E Bjorn 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-SENIOR WINDOWS ADMINISTRATOR Work Phone: Start: 01-26-2025 Urnls dip stick/tabl [...] Start: 11-09-2024 Adult depression scr eening assessment Shloa Milan 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-SENIOR WINDOWS ADMINISTRATOR Work Phone: Start: 11-08-2024 Ecg routine ecg [...] above: Performed By: #### P SAD #### [facility] [address] [place] [address] Dr. Jenny Stone Start: 09-30-2020 Lipid 1996 [...] RSV Vaccine (1 - 1-dose 75+ series) [facility] Start: 02-22-2028 Diabetes Screening Diabetes Screening [facility] Start: 02-15-2028 Diabetes Screening Diabetes Screening [facility] Start: 02-06-2028 Diabetes Screening Diabetes Screening [facility] Start: 01-25-2028 Diabetes Screening Diabetes Screening [facility] Start: 01-16-2028 Diabetes Screening Diabetes Screening [facility] Start: 01-09-2028 Diabetes Screening Diabetes Screening [facility] Start: 01-03-2028 Diabetes Screening Diabetes Screening [facility] Start: 12-27-2027 Diabetes Screening Diabetes Screening [facility] Start: 11-10-2027 Diabetes Screening Diabetes Screening [facility] Start: 02-09-2026 Adult BMI Screening Adult BMI Screening [facility] Start: 12-07-2025 Adult BMI Screening Adult BMI Screening [facility] Start: 12-07-2025 Tobacco Screening Tobacco Screening [facility] Start: 11-22-2025 Tobacco Screening Tobacco Screening [facility] Start: 11-09-2025 Adult BMI Screening Adult BMI Screening [facility] Start: 11-09-2025 Depression Screening Depression Screening [facility] Start: 11-09-2025 Tobacco Screening Tobacco Screening [facility] Start: 11-08-2025 Adult BMI Screening Adult BMI Screening [facility] Start: 11-08-2025 Tobacco Screening Tobacco Screening [facility] Start: 09-30-2025 Lipid panel Lipid Screening [facility] Start: 05-30-2025 End: 05-30-2025 Clinical Support [facility] Start: 05-28-2025 End: 05-28-2025 Patient encounter procedure 05/28/2025 11:30 AM EST Office Visit Radiation Oncology [address] [place] [address] Ezra Lizama MD [address] [place] [address] 3-4 month final radiation follow up Radiation Oncology Comment on above: 3-4 month final radiation follow up Start: 05-27-2025 Screening for malignant neoplasm of colon [facility] Start: 05-25-2025 End: 05-25-2025 Patient encounter procedure 05/25/2025 11:30 AM EST Office Visit Radiation Oncology [address] [place] [address] Ezra Lizama MD [address] [facility] [place] [address] 3-4 month final radiation follow up Radiation Oncology Comment on above: 3-4 month final radiation follow up Start: 05-03-2025 Screening for malignant neoplasm of colon [facility] Start: 04-13-2025 End: 04-13-2025 ambulatory 04/13/2025 11:00 AM EDT Treatment [facility] [address] [place] [address] Terra Rashid, PT [facility] Start: 04-11-2025 End: 04-11-2025 ambulatory 04/11/2025 2:30 PM EDT Treatment [facility] [address] [place] [address] Gayathri Saeed PTA [facility] Start: 04-10-2025 End: 04-10-2025 ambulatory 04/10/2025 10:00 AM EDT Treatment [facility] [address] [place] [address] Gayathri Saeed PTA [facility] Start: 04-09-2025 End: 04-09-2025 ambulatory 04/09/2025 10:30 AM EDT Treatment [facility] [address] [place] [address] Mallorie Cote PTA [facility] Start: 04-06-2025 End: 04-06-2025 ambulatory 04/06/2025 11:30 AM EDT Treatment [facility] [address] [place] [address] Gayathri Saeed PTA [facility] Start: 04-02-2025 End: 04-02-2025 ambulatory 04/02/2025 1:00 PM EDT Treatment [facility] [address] [place] [address] Gayathri Saeed PTA [facility] Start: 03-29-2025 End: 03-29-2025 ambulatory 03/29/2025 12:00 PM EDT Treatment [facility] [address] [facility] [address] [place] [address] Gayathri Saeed PTA [facility] Start: 03-28-2025 End: 03-28-2025 Follow-up encounter 03/28/2025 2:40 PM EDT Visit (SP) Office Hematology/Oncology [address] [place] [address] [place] [address] Rasheed Perez MD [address] [place] [address] [place] [address] 5 WEEK FOLLOW UP AFTER PET SCAN Hematology/Oncol ogy Comment on above: 5 WEEK FOLLOW UP AFTER PET SCAN Start: 03-28-2025 End: 03-28-2025 Patient encounter procedure 03/28/2025 2:15 PM EDT Office Visit [facility] [address] [facility] [place] [address] 5 WEEK FOLLOW UP AFTER PET SCAN [facility] Comment on above: 5 WEEK FOLLOW UP AFTER PET SCAN Start: 03-26-2025 End: 03-26-2025 ambulatory 03/26/2025 11:00 AM EDT Treatment [facility] [address] [place] [address] Akbar Monreal, SECTION GANG WORKER [facility] Start: 03-23-2025 End: 03-23-2026 PET+CT Guidance for localization of tumor of Skull base to mid-thigh-- W [id number] IV NM PET/CT SKULL-THIGH SUBSEQUENT Radiology Routine Malignant neoplasm of lower lobe of right lung (HCC) Expected: 03/23/2025 (Approximate), Expires: 03/23/2026 [facility] Work Phone: Comment on above: Expected: 03/23/2025 (Approximate), Expi res: 03/23/2026 Start: 03-23-2025 End: 03-23-2025 Patient encounter procedure 03/23/2025 10:00 AM EDT Appointment Radiology Pet CT [address] [facility] [place] [address] Comment on above: PET Start: 03-22-2025 End: 03-22-2025 ambulatory [facility] [place] [facility] Comment on above: Arrived Start: 03-20-2025 End: 03-20-2025 Patient encounter procedure 03/20/2025 11:30 AM EDT Office Visit Palliative Medicine [address] [facility] [place] [place] [address] Sheila Freeman, 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.SENIOR WINDOWS ADMINISTRATOR [address] [place] [address] 4 week follow up Palliative Medicine Comment [...] Interrogation Device Interrogation Cardiac Services Routine Pacemaker- [place] Expected: 03/14/2025, Expires: 03/14/2026 [facility] Work Phone: Comment on above: Expected: 03/14/2025, Expires: Start: 03-14-2025 End: 03-14-2025 Clinical Support 03/14/2025 11:30 AM EDT Clinical Support [facility] [address] [facility] [address] [place] [address] [facility] Start: 03-13-2025 End: 03-13-2025 ambulatory [facility] Comment on above: Arrived Start: 03-09-2025 End: 03-09-2025 ambulatory [facility] Comment on above: Arrived Start: 03-07-2025 End: 03-07-2025 ambulatory 03/07/2025 3:00 PM EDT Evaluation [facility] [address] [place] [address] Terra Rashdi, PT Arrived [facility] Comment on above: Arrived Start: 02-23-2025 End: 02-23-2025 Follow-up encounter 02/23/2025 11:15 AM EDT Education Nutrition Therapy [id number] [place] [address] Tammie Bunn, RD [address] [place], [place] [id number] follow up Nutrition Therapy Comment on above: follow up Start: 02-22-2025 End: 02-22-2025 Nursing evaluation of patient and report 02/22/2025 11:45 AM EDT Nurse Visit Radiation Oncology [address] [facility] [place] [address] Mae, Nurse Radt [address] [facility] [place] [address] pulse monitoring Radiation Oncology Comment on above: pulse monitoring Start: 02-22-2025 End: 02-22-2025 Patient encounter procedure 02/22/2025 11:45 AM EDT Appointment Radiation Oncology [address] [facility] [place] [address] Lung Radiation Oncology Comment on above: Lung Start: 02-22-2025 End: 02-22-2025 ambulatory 02/22/2025 10:45 AM EDT Infusion Center Hematology/Oncology [address] [facility] [place] [address] [facility] Hematology/Oncol ogy Comment on above: NEULASTA Start: 02-21-2025 End: 02-21-2025 Follow-up encounter Hematology/Oncol ogy Comment on above: lab follow up and chemotx Cisplatin + IV MAG - PUT PATIENT BACK ON WEDNESDAY Start: 02-21-2025 End: 02-21-2025 Patient encounter procedure [facility] Comment on above: lab [...] [facility] [place] [address] Mae, Nurse Radt [address] [facility] [place] [address] pulse monitoring Radiation Oncology Comment on above: [...] right lung (HCC) Expected: 02/19/2025, Expires: 05/21/2025 [facility] Work Phone: Comment on above: Expected: 02/19/2025, Expires: Start: 02-19-2025 End: 05-21-2025 Comprehensive metabolic 2000 panel - Serum or Plasma COMPREHENSIVE METABOLIC PANEL Lab Routine Malignant neoplasm of lower lobe of right lung (HCC) Expected: 02/19/2025, Expires: 05/21/2025 [facility] Comment on above: Expected: 02/19/2025, Expires: Start: 02-19-2025 End: 05-21-2025 Magnesium [Mass/volume] in Serum or Plasma MAGNESIUM Lab Routine Malignant neoplasm of lower lobe of right lung (HCC) Expected: 02/19/2025, Expires: 05/21/2025 [facility] Comment on above: Expected: 02/19/2025, Expires: Start: 02-19-2025 End: 02-19-2025 Nursing evaluation of patient and report 02/19/2025 11:45 AM EDT Nurse Visit Radiation Oncology [address] [facility] [facility] [place] [address] Mae, Nurse Radt [address] [facility] [place] [address] pulse monitoring Radiation Oncology Comment on above: pulse monitoring Start: 02-19-2025 End: 02-19-2025 Patient encounter procedure 02/19/2025 11:45 AM EDT Appointment Radiation Oncology [address] [facility] [place] [address] Lung Radiation Oncology Comment on above: Lung Start: 02-16-2025 End: 02-16-2025 Nursing evaluation of patient and report 02/16/2025 11:45 AM EDT Nurse Visit Radiation Oncology [address] [facility] [place] [address] Mae, Nurse Radt [address] [facility] [place] [address] pulse monitoring Radiation Oncology Comment on above: pulse monitoring Start: 02-16-2025 End: 02-16-2025 Patient encounter procedure 02/16/2025 11:45 AM EDT Appointment Radiation Oncology [address] [facility] [place] [address] Lung Radiation Oncology Comment on above: Lung Start: 02-15-2025 End: 02-15-2025 Nursing evaluation of patient and report 02/15/2025 11:45 AM EDT Nurse Visit Radiation Oncology [address] [facility] [place] [address] Mae, Nurse Radt [address] [facility] [place] [address] pulse monitoring Radiation Oncology Comment on above: pulse monitoring Start: 02-15-2025 End: 02-15-2025 Patient encounter procedure 02/15/2025 11:45 AM EDT Appointment Radiation Oncology [address] [facility] [place] [address] Lung Radiation Oncology Comment on above: Lung Start: 02-14-2025 End: 02-14-2025 Nursing evaluation of patient and report 02/14/2025 11:45 AM EDT Nurse Visit Radiation Oncology [address] [facility] [place] [address] Mae, Nurse Radt [address] [facility] [place] [address] pulse monitoring Radiation Oncology Comment on above: [...] PM EDT Visit (SP) Office Hematology/Oncology [address] [facility] [place] [address] Madison Gagnon LMT [facility]/Oncol ogy Comment on above: massage-pt in lobby Start: 02-13-2025 End: 02-13-2025 Nursing evaluation of patient and report 02/13/2025 11:45 AM EDT Nurse Visit Radiation Oncology [address] [facility] [place] [address] Nurse Mae Radt [address] [facility] [place] [address] pulse monitoring Radiation Oncology Comment on above: pulse monitoring Start: 02-13-2025 End: 02-13-2025 Patient encounter procedure Radiation Oncology Comment on above: Lung Lung- massage 12:30 Start: 02-12-2025 End: 05-14-2025 CBC W Auto Differential panel - Blood COMPLETE BLOOD COUNT AND DIFFERENTIAL Lab Routine Malignant neoplasm of lower lobe of right lung (HCC) Expected: 02/12/2025 (Approximate), Expires: 05/14/2025 [facility] Work Phone: Comment on above: Expected: 02/12/2025 (Approximate), Expi res: 05/14/2025 Start: 02-12-2025 End: 05-14-2025 Comprehensive metabolic 2000 panel - Serum or Plasma COMPREHENSIVE METABOLIC PANEL Lab Routine Malignant neoplasm of lower lobe of right lung (HCC) Expected: 02/12/2025 (Approximate), Expires: 05/14/2025 [facility] Comment on above: Expected: 02/12/2025 (Approximate), Expi res: 05/14/2025 Start: 02-12-2025 COVID-19 Vaccine (4 - Mixed Product risk season) COVID-19 Vaccine (4 - Mixed Product risk season) [facility] Start: 02-12-2025 Influenza vaccination [facility] Start: 02-09-2025 End: 02-09-2026 Device Interrogation Device Interrogation Cardiac Services Routine AV block Pacemaker Expected: 02/09/2025, Expires: 02/09/2026 [employer] Work Phone: Comment on above: Expected: 02/09/2025, Expires: Start: 02-09-2025 End: 02-09-2025 Nursing evaluation of patient and report 02/09/2025 11:45 AM EDT Nurse Visit Radiation Oncology [address] [facility] [place] [address] Nurse Octavio Garciat [address] [facility] [place] [address] pulse monitoring Radiation Oncology Comment on above: [...] [facility] [place] [address] Mae, Nurse Radt [address] [facility] [place] [address] pulse monitoring Radiation Oncology Comment on above: [...] [facility] [place] [address] Mae, Nurse Radt [address] [facility] [place] [address] pulse monitoring Radiation Oncology Comment on above: [...] [facility] [place] [address] Mae, Nurse Radt [address] [place] [address] [place] [address] pulse monitoring Radiation Oncology Comment on above: pulse monitoring Start: 02-06-2025 End: 02-06-2025 Patient encounter procedure Radiation Oncology Comment on above: Lung Lung- massage 12:30, chemo 1 (2 hrs) Start: 02-05-2025 End: 02-05-2025 Nursing evaluation of patient and report 02/05/2025 11:45 AM EDT Nurse Visit Radiation Oncology [address] [facility] [place] [address] Mae, Nurse Radt [address] [facility] [place] [address] pulse monitoring Radiation Oncology Comment on above: [...] 11:45 AM EDT Nurse Visit Radiation Oncology [address] [place] [address] [place] [address] Mae, Nurse Radt [address] [place] [address] [place] [address] pulse monitoring Radiation Oncology Comment on above: pulse monitoring Start: 02-02-2025 End: 02-02-2025 Patient encounter procedure 02/02/2025 11:45 AM EDT Appointment Radiation Oncology [address] [place] [address] Lung Radiation Oncology Comment on above: Lung Start: 02-01-2025 End: 02-01-2025 Nursing evaluation of patient and report 02/01/2025 11:45 AM EDT Nurse Visit Radiation Oncology [address] [place] [address] Mae, Nurse Radt [address] [facility] [place] [address] pulse monitoring Radiation Oncology Comment on above: pulse monitoring Start: 02-01-2025 End: 02-01-2025 Patient encounter procedure 02/01/2025 11:45 AM EDT Appointment Radiation Oncology [address] [place] [address] Lung Radiation Oncology Comment on above: Lung Start: 01-31-2025 End: 01-31-2025 Nursing evaluation of patient and report 01/31/2025 11:45 AM EDT Nurse Visit Radiation Oncology [address] [place] [address] Mae, Nurse Radt [address] [facility] [place] [address] pulse monitoring Radiation Oncology Comment on above: pulse monitoring Start: 01-31-2025 End: 01-31-2025 Patient encounter procedure Radiation Oncology Comment on above: Lung Location: [facility] Start: 01-30-2025 End: 01-30-2025 Nursing evaluation of patient and report 01/30/2025 11:45 AM EDT Nurse Visit Radiation Oncology [address] [place] [address] Mae, Nurse Radt [address] [place] [address] pulse monitoring Radiation Oncology Comment on above: pulse monitoring Start: 01-30-2025 End: 01-30-2025 Patient encounter procedure 01/30/2025 11:45 AM EDT Appointment Radiation Oncology [address] [place] [address] Lung Radiation Oncology Comment on above: Lung Start: 01-30-2025 End: 01-30-2025 ambulatory 01/30/2025 10:00 AM EDT Visit (SP) Office Hematology/Oncology [address] [facility] [place] [address] Madison Gagnon, CHRISTELLET massage-pt in [facility] Hematology/Oncol og Comment on above: massage-pt in [facility] Start: 01-30-2025 End: 01-30-2025 Patient encounter procedure Radiation Oncology Comment on above: lung- pulse ox during tx C34.31 (ICD-10-CM) - Malignant neoplasm of lower lobe of right lung (HCC) Start: 01-29-2025 End: 01-29-2025 Nursing evaluation of patient and report 01/29/2025 11:45 AM EDT Nurse Visit Radiation Oncology [address] [facility] [place] [address] Mae, Nurse Radt [address] [facility] [place] [address] pulse monitoring Radiation Oncology Comment on above: pulse monitoring Start: 01-29-2025 End: 01-29-2025 Patient encounter procedure 01/29/2025 11:45 AM EDT Appointment Radiation Oncology [address] [facility] [place] [address] Lung Radiation Oncology Comment on above: Lung Start: 01-29-2025 End: 01-29-2025 Patient encounter procedure 01/29/2025 8:15 AM EDT Appointment Radiation Oncology [address] [facility] [place] [address] lung- pulse ox during tx Radiation Oncology Comment on above: lung- pulse ox during tx Start: 01-26-2025 End: 04-27-2025 Bacteria identified in Blood by Culture [facility] Comment on above: Expected: 01/26/2025, Expires: Start: 01-26-2025 End: 04-27-2025 Bacteria identified in Urine by Culture [facility] Work Phone: Comment on above: Expected: 01/26/2025, Expires: Start: 01-26-2025 End: 04-27-2025 URINALYSIS, DIPSTICK ONLY URINALYSIS, DIPSTICK ONLY Lab Routine Fever in adult Expected: 01/26/2025, Expires: 04/27/2025 [facility] Comment on above: Expected: 01/26/2025, Expires: 5 Start: 01-26-2025 End: 02-24-2026 XR Chest PA and Lateral [facility] Comment on above: Expected: 01/26/2025, Expires: 6 Start: 01-26-2025 End: 01-26-2025 Nursing evaluation of patient and report 01/26/2025 11:45 AM EDT Nurse Visit Radiation Oncology [address] [place] [address] Mae, Nurse Radt [address] [place] [address] pulse monitoring Radiation Oncology Comment on above: pulse monitoring Start: 01-26-2025 End: 01-26-2025 Patient encounter procedure 01/26/2025 11:45 AM EDT Appointment Radiation Oncology [address] [place] [address] Lung Radiation Oncology Comment on above: Lung Start: 01-26-2025 End: 01-26-2025 Patient encounter procedure Radiation Oncology Comment on above: lung- pulse ox during tx Lab and x ray per Ra diollogy and Dr iWlkerson Start: 01-25-2025 End: 01-25-2025 Nursing evaluation of patient and report 01/25/2025 11:45 AM EDT Nurse Visit Radiation Oncology [address] [place] [address] Mae, Nurse Radt [address] [place] [address] pulse monitoring Radiation Oncology Comment on above: pulse monitoring Start: 01-25-2025 End: 01-25-2025 Patient encounter procedure 01/25/2025 11:45 AM EDT Appointment Radiation Oncology [address] [place] [address] Lung Radiation Oncology Comment on above: Lung Start: 01-25-2025 End: 01-25-2025 Patient encounter procedure 01/25/2025 8:15 AM EDT Appointment Radiation Oncology [address] [place] [address] lung- pulse ox during tx Radiation Oncology Comment on above: lung- pulse ox during tx Start: 01-25-2025 [facility] Start: 01-24-2025 End: 01-24-2025 Nursing evaluation of patient and report 01/24/2025 11:45 AM EDT Nurse Visit Radiation Oncology [address] [facility] [place] [address] Mae, Nurse Radt [address] [facility] [place] [address] pulse monitoring Radiation Oncology Comment on above: pulse monitoring Start: 01-24-2025 End: 01-24-2025 Patient encounter procedure 01/24/2025 11:45 AM EDT Appointment Radiation Oncology [address] [facility] [place] [address] Lung Radiation Oncology Comment on above: Lung Start: 01-24-2025 End: 01-24-2025 Patient encounter procedure Radiation Oncology Comment on above: lung- pulse ox during tx Location: [facility] Start: 01-24-2025 [facility] Start: 01-23-2025 End: 01-23-2025 ambulatory 01/23/2025 12:30 PM EDT Visit (SP) Office Hematology/Oncology [address] [facility] [place] [address] Madison Gagnon LMT massage-pt in [facility] Hematology/Oncol og Comment on above: massage-pt in lobby Start: 01-23-2025 End: 01-23-2025 Nursing evaluation of patient and report 01/23/2025 11:45 AM EDT Nurse Visit Radiation Oncology [address] [facility] [place] [address] Mae, Nurse Radt [address] [facility] [place] [address] pulse monitoring Radiation Oncology Comment on above: pulse monitoring Start: 01-23-2025 End: 01-23-2025 Patient encounter procedure 01/23/2025 11:45 AM EDT Appointment Radiation Oncology [address] [facility] [place] [address] Lung Radiation Oncology Comment on above: Lung Start: 01-23-2025 End: 01-23-2025 Patient encounter procedure Radiation Oncology Comment on above: lung- pulse ox during tx C34.31 (ICD-10-CM) - Malignant neoplasm of lower lobe of right lung (HCC) Start: 01-23-2025 [facility] Start: 01-22-2025 End: 01-22-2025 Nursing evaluation of patient and report 01/22/2025 11:45 AM EDT Nurse Visit Radiation Oncology [address] [place] [address] Mae, Nurse Radt [address] [place] [address] pulse monitoring Radiation Oncology Comment on above: pulse monitoring Start: 01-22-2025 End: 01-22-2025 Patient encounter procedure 01/22/2025 11:45 AM EDT Appointment Radiation Oncology [address] [place] [address] Lung Radiation Oncology Comment on above: Lung Start: 01-22-2025 End: 01-22-2025 Patient encounter procedure 01/22/2025 8:15 AM EDT Appointment Radiation Oncology [address] [place] [address] lung- pulse ox during tx Radiation Oncology Comment on above: lung- pulse ox during tx Start: 01-22-2025 [facility] Start: 01-21-2025 [facility] Start: 01-20-2025 [facility] Start: 01-19-2025 End: 01-19-2025 Nursing evaluation of patient and report 01/19/2025 11:45 AM EDT Nurse Visit Radiation Oncology [address] [place] [address] Mae, Nurse Radt [address] [place] [address] pulse monitoring Radiation Oncology Comment on above: pulse monitoring Start: 01-19-2025 End: 01-19-2025 Patient encounter procedure 01/19/2025 11:45 AM EDT Appointment Radiation Oncology [address] [place] [address] Lung Radiation Oncology Comment on above: Lung Start: 01-19-2025 End: 01-19-2025 Patient encounter procedure 01/19/2025 8:15 AM EDT Appointment Radiation Oncology [address] [place] [address] lung- pulse ox during tx Radiation Oncology Comment on above: lung- pulse ox during tx Start: 01-19-2025 [facility] Start: 01-18-2025 End: 01-18-2025 Nursing evaluation of patient and report 01/18/2025 11:45 AM EDT Nurse Visit Radiation Oncology [address] [place] [address] Mae, Nurse Radt [address] [place] [address] pulse monitoring Radiation Oncology Comment on above: pulse monitoring Start: 01-18-2025 End: 01-18-2025 Patient encounter procedure 01/18/2025 11:45 AM EDT Appointment Radiation Oncology [address] [place] [address] Lung Radiation Oncology Comment on above: Lung Start: 01-18-2025 Referral to infectious diseases physician [facility] Start: 01-18-2025 End: 01-18-2025 Patient encounter procedure 01/18/2025 8:15 AM EDT Appointment Radiation Oncology [address] [place] [address] lung- pulse ox during tx Radiation Oncology Comment on above: lung- pulse ox during tx Start: 01-18-2025 End: 01-18-2025 [facility] Start: 01-17-2025 Consultation [facility] Start: 01-17-2025 End: 01-17-2025 Nursing evaluation of patient and report 01/17/2025 11:45 AM EDT Nurse Visit Radiation Oncology [address] [place] [address] Mae, Nurse Radt [address] [place] [address] pulse monitoring Radiation Oncology Comment on above: pulse monitoring Start: 01-17-2025 End: 01-17-2025 Patient encounter procedure 01/17/2025 11:45 AM EDT Appointment Radiation Oncology [address] [place] [address] Lung Radiation Oncology Comment on above: Lung Start: 01-17-2025 Referral to palliative care physician [facility] Start: 01-17-2025 End: 01-17-2025 Patient encounter procedure Radiation Oncology Comment on above: lung- pulse ox during tx Location: [facility] Start: 01-17-2025 [facility] Start: 01-16-2025 End: 01-16-2025 Nursing evaluation of patient and report 01/16/2025 3:45 PM EDT Nurse Visit Radiation Oncology [address] [facility] [facility] [place] [address] [employer], Nurse Radt [address] [facility] [facility] [place] [address] pulse monitoring Radiation Oncology Comment on above: pulse monitoring Start: 01-16-2025 End: 01-16-2025 Patient encounter procedure 01/16/2025 3:45 PM EDT Appointment Radiation Oncology [address] [facility] [address] Lung- pall med 1st @ 3 Radiation Oncology Comment on above: Lung- pall med 1st @ 3 Start: 01-16-2025 End: 01-16-2025 ambulatory 01/16/2025 2:00 PM EDT Visit (SP) Office Hematology/Oncology [address] [place] [address] [place] [address] Madison Gagnon LMT massage-pt in lobby Hematology/Oncol og Comment on above: massage-pt in lobby Start: 01-16-2025 End: 01-16-2025 Patient encounter procedure 01/16/2025 11:45 AM EDT Appointment Radiation Oncology [address] [facility] [facility] [place] [address] Lung Radiation Oncology Comment on above: Lung Start: 01-16-2025 End: 01-16-2025 Patient encounter procedure Radiation Oncology Comment on above: lung- pulse ox during tx Consult pall med dx lung cancer Lung seeing Carmen rosen 3:00pm please offer PHONE v isit for Nutrtion visit Start: 01-16-2025 [facility] Start: 01-15-2025 Bacteria identified in Blood by Culture Blood Culture [facility] Start: 01-15-2025 End: 04-16-2025 CBC W Auto Differential panel - Blood COMPLETE BLOOD COUNT AND DIFFERENTIAL Lab Routine Malignant neoplasm of lower lobe of right lung (HCC) Expected: 01/15/2025 (Approximate), Expires: 04/16/2025 [facility] Work Phone: Comment on above: Expected: 01/15/2025 (Approximate), Expi res: 04/16/2025 Start: 01-15-2025 End: 04-16-2025 Comprehensive metabolic 2000 panel - Serum or Plasma COMPREHENSIVE METABOLIC PANEL Lab Routine Malignant neoplasm of lower lobe of right lung (HCC) Expected: 01/15/2025 (Approximate), Expires: 04/16/2025 [facility] Comment on above: Expected: 01/15/2025 (Approximate), Expi res: 04/16/2025 Start: 01-15-2025 End: 04-16-2025 Magnesium [Mass/volume] in Serum or Plasma MAGNESIUM Lab Routine Malignant neoplasm of lower lobe of right lung (HCC) Expected: 01/15/2025 (Approximate), Expires: 04/16/2025 [facility] Comment on above: Expected: 01/15/2025 (Approximate), Expi res: 04/16/2025 Start: 01-15-2025 End: 01-15-2025 Hospital admission [facility] Start: 01-15-2025 Physical therapy procedure [facility] Start: 01-15-2025 Referral to occupational therapist [facility] Start: 01-15-2025 Referral to speech and language therapy service [facility] Start: 01-15-2025 End: 01-15-2025 [facility] Start: 01-15-2025 End: 01-15-2025 Nursing evaluation of patient and report 01/15/2025 11:45 AM EDT Nurse Visit Radiation Oncology [address] [place] [address] Mae, Nurse Radt [address] [place] [address] pulse monitoring Radiation Oncology Comment on above: [...] [facility] [place] [address] Mae, Nurse Radt [address] [place] [address] [place] [address] pulse monitoring Radiation Oncology Comment on above: pulse monitoring Start: 01-12-2025 End: 01-12-2025 Patient encounter procedure Radiation Oncology Comment on above: Lung Lung chemo 12:00 Start: 01-12-2025 End: 01-12-2025 Nursing evaluation of patient and report 01/12/2025 8:30 AM EDT Nurse Visit Radiation Oncology [address] [place] [address] [place] [address] Mae, Nurse Radt [address] [place] [address] [place] [id number] pulse monitoring Radiation Oncology Comment on above: pulse monitoring Start: 01-12-2025 End: 01-12-2025 Patient encounter procedure 01/12/2025 8:15 AM EDT Appointment Radiation Oncology [address] [place] [address] lung- pulse ox during tx Radiation Oncology [...] [facility] [place] [address] Mae, Nurse Radt [address] [place] [address] [place] [address] pulse monitoring Radiation Oncology Comment on above: pulse monitoring Start: 01-11-2025 End: 01-11-2025 Patient encounter procedure Radiation Oncology Comment on above: Lung Lung chemo 12;00pm Start: 01-11-2025 End: 01-11-2025 Nursing evaluation of patient and report 01/11/2025 8:30 AM EDT Nurse Visit Radiation Oncology [address] [place] [address] [place] [address] Mae, Nurse Radt [address] [place] [address] [place] [address] pulse monitoring Radiation Oncology Comment on above: pulse monitoring Start: 01-11-2025 End: 01-11-2025 Patient encounter procedure 01/11/2025 8:15 AM EDT Appointment Radiation Oncology [address] [place] [address] [place] [address] lung- pulse ox during tx Radiation Oncology Comment on above: lung- pulse ox during tx Start: 01-10-2025 End: 01-10-2025 Follow-up encounter 01/10/2025 1:00 PM EDT Infusion Center Hematology/Oncology [address] [place] [address] [place] [address] lab follow up and chemotx Cisplatin + Etoposide day 1-5 Hematology/Oncol ogy Comment on above: lab follow up and chemotx Cisplatin + Et oposide day 1-5 Start: 01-10-2025 End: 01-10-2025 Nursing evaluation of patient and report 01/10/2025 11:45 AM EDT Nurse Visit Radiation Oncology [address] [place] [address] [place] [address] aMe, Nurse Radt [address] [place] [address] [place] [address] pulse monitoring Radiation Oncology Comment on above: pulse monitoring Start: 01-10-2025 End: 01-10-2025 Patient encounter procedure Radiation Oncology Comment on above: Lung Lung chemo 1:00pm Start: 01-10-2025 End: 01-10-2025 Nursing evaluation of patient and report 01/10/2025 8:30 AM EDT Nurse Visit Radiation Oncology [address] [facility] [place] [address] Mae, Nurse Radt [address] [place] [address] [place] [address] pulse monitoring Radiation Oncology Comment on above: pulse monitoring Start: 01-10-2025 End: 01-10-2025 Patient encounter procedure Radiation Oncology Comment on above: lung- pulse ox during tx Location: [facility] Start: 01-09-2025 End: 01-09-2025 Nursing evaluation of patient and report 01/09/2025 3:15 PM EDT Nurse Visit Radiation Oncology [address] [facility] [place] [address] [employer], Nurse Radt [address] [place] [address] [place] [address] pulse monitoring Radiation Oncology Comment on above: pulse monitoring Start: 01-09-2025 End: 01-09-2025 ambulatory 01/09/2025 2:30 PM EDT Visit (SP) Office Hematology/Oncology [address] [place] [address] [place] [address] Madison Gagnon LMT massage-pt in [facility] Hematology/Oncol ogy Comment on above: [facility] Start: 01-09-2025 End: 01-09-2025 Nursing evaluation of patient and report 01/09/2025 11:45 AM EDT Nurse Visit Radiation Oncology [address] [facility] [place] [address] [employer], Nurse Radt [address] [facility] [place] [address] pulse monitoring Radiation Oncology Comment on above: [...] [facility] [place] [address] Mae, Nurse Radt [address] [facility] [place] [address] pulse monitoring Radiation Oncology Comment on above: [...] procedure 01/08/2025 9:45 AM EDT Office Visit [facility] [address] [facility] [place] [address] lab follow up and chemotx Cisplatin + Etoposide day 1-5 [facility] Comment on above: lab follow up and chemotx Cisplatin + Et oposide day 1-5 Start: 01-08-2025 End: 01-08-2025 Nursing evaluation of patient and report Radiation Oncology Comment on above: pulse monitoring cisplatin + etoposid e Start: 01-08-2025 End: 01-08-2025 Patient encounter procedure 01/08/2025 8:15 AM EDT Appointment Radiation Oncology [address] [facility] [place] [address] lung- pulse ox during tx Radiation Oncology Comment on above: lung- pulse ox during tx Start: 01-06-2025 [facility] [place] Start: 01-05-2025 Aerobic microbial culture Aerobic Culture [facility] [place] Start: 01-05-2025 Microbial culture of sputum [facility] [place] Start: 01-05-2025 End: 01-05-2025 Nursing evaluation of patient and report 01/05/2025 11:45 AM EDT Nurse Visit Radiation Oncology [address] [facility] [place] [address] Mae, Nurse Radt [address] [facility] [place] [address] pulse monitoring Radiation Oncology Comment on above: pulse monitoring Start: 01-05-2025 End: 01-05-2025 Patient encounter procedure 01/05/2025 11:45 AM EDT Appointment Radiation Oncology [address] [place] [address] Lung Radiation Oncology Comment on above: Lung Start: 01-05-2025 End: 01-05-2025 Nursing evaluation of patient and report 01/05/2025 8:30 AM EDT Nurse Visit Radiation Oncology [address] [place] [address] Mea, Nurse Radt [address] [facility] [place] [place] [address] pulse monitoring Radiation Oncology Comment on above: pulse monitoring Start: 01-05-2025 End: 01-05-2025 Patient encounter procedure 01/05/2025 8:15 AM EDT Appointment Radiation Oncology [address] [place] [address] lung- pulse ox during tx Radiation Oncology Comment on above: lung- pulse ox during tx Start: 01-04-2025 End: 01-04-2025 Nursing evaluation of patient and report 01/04/2025 11:45 AM EDT Nurse Visit Radiation Oncology [address] [place] [address] Mae, Nurse Radt [address] [facility] [place] [place] [address] pulse monitoring Radiation Oncology Comment on above: pulse monitoring Start: 01-04-2025 End: 01-04-2025 Patient encounter procedure 01/04/2025 11:45 AM EDT Appointment Radiation Oncology [address] [place] [address] Lung Radiation Oncology Comment on above: Lung Start: 01-04-2025 End: 01-04-2025 Nursing evaluation of patient and report 01/04/2025 8:30 AM EDT Nurse Visit Radiation Oncology [address] [place] [address] Mae, Nurse Radt [address] [place] [address] pulse monitoring Radiation Oncology Comment on above: pulse monitoring Start: 01-04-2025 End: 01-04-2025 Patient encounter procedure 01/04/2025 8:15 AM EDT Appointment Radiation Oncology [address] [place] [address] lung- pulse ox during tx Radiation Oncology Comment on above: lung- pulse ox during tx Start: 01-03-2025 Administration of prophylactic treatment [facility] [place] Start: 01-03-2025 End: 01-03-2025 Nursing evaluation of patient and report 01/03/2025 11:45 AM EDT Nurse Visit Radiation Oncology [address] [place] [address] Mae, Nurse Radt [address] [place] [address] pulse monitoring Radiation Oncology Comment on above: pulse monitoring Start: 01-03-2025 End: 01-03-2025 Patient encounter procedure 01/03/2025 11:45 AM EDT Appointment Radiation Oncology [address] [place] [address] Lung Radiation Oncology Comment on above: Lung Start: 01-03-2025 End: 01-03-2025 Nursing evaluation of patient and report 01/03/2025 8:30 AM EDT Nurse Visit Radiation Oncology [address] [place] [address] Mae, Nurse Radt [address] [place] [address] pulse monitoring Radiation Oncology Comment on above: pulse monitoring Start: 01-03-2025 End: 01-03-2025 Patient encounter procedure 01/03/2025 8:15 AM EDT Appointment Radiation Oncology [address] [facility] [place] [address] lung- pulse ox during tx Radiation Oncology Comment on above: lung- pulse ox during tx Start: 01-03-2025 Plain chest X-ray XR chest 2V* [facility] [place] Start: 01-03-2025 [facility] [place] Start: 01-02-2025 Hospital admission [facility] Start: 01-02-2025 End: 01-02-2025 [facility] [place] Start: 01-02-2025 Physical therapy procedure [facility] [place] Start: 01-02-2025 Referral to occupational therapist [facility] [place] Start: 01-02-2025 Microbial culture of sputum [facility] [place] Start: 01-02-2025 End: 01-02-2025 Nursing evaluation of patient and report 01/02/2025 3:15 PM EDT Nurse Visit Radiation Oncology [address] [facility] [place] [address] Mae, Nurse Radt [address] [facility] [place] [address] pulse monitoring Radiation Oncology Comment on above: pulse monitoring Start: 01-02-2025 End: 01-02-2025 ambulatory 01/02/2025 2:30 PM EDT Visit (SP) Office Hematology/Oncology [address] [facility] [place] [address] Madison Gagnon, TERRANCE massage-pt in lobby Hematology/Oncol ogy Comment on above: massage-pt in lobby Start: 01-02-2025 Bacteria identified in Blood by Culture Blood Culture [facility] [place] Start: 01-02-2025 End: 04-03-2025 CBC W Auto Differential panel - Blood COMPLETE BLOOD COUNT AND DIFFERENTIAL Lab Routine Malignant neoplasm of lower lobe of right lung (HCC) Expected: 01/02/2025 (Approximate), Expires: 04/03/2025 [facility] Work Phone: Comment on above: Expected: 01/02/2025 (Approximate), Expi res: 04/03/2025 Start: 01-02-2025 End: 04-03-2025 Comprehensive metabolic 2000 panel - Serum or Plasma COMPREHENSIVE METABOLIC PANEL Lab Routine Malignant neoplasm of lower lobe of right lung (HCC) Expected: 01/02/2025 (Approximate), Expires: 04/03/2025 [facility] Comment on above: Expected: 01/02/2025 (Approximate), Expi res: 04/03/2025 Start: 01-02-2025 End: 04-03-2025 [facility] Lab Routine Malignant neoplasm of lower lobe of right lung (HCC) Expected: 01/02/2025 (Approximate), Expires: 04/03/2025 [facility] Comment on above: Expected: 01/02/2025 (Approximate), Expi res: 04/03/2025 Start: 01-02-2025 End: 04-03-2025 Magnesium [Mass/volume] in Serum or Plasma MAGNESIUM Lab Routine Malignant neoplasm of lower lobe of right lung (HCC) Expected: 01/02/2025 (Approximate), Expires: 04/03/2025 [facility] Comment on above: Expected: 01/02/2025 (Approximate), [...] [facility] [place] [address] Mae, Nurse Radt [address] [facility] [place] [address] pulse monitoring Radiation Oncology Comment on above: pulse monitoring Start: 01-01-2025 End: 01-01-2025 Patient encounter procedure 01/01/2025 8:15 AM EDT Appointment Radiation Oncology [address] [facility] [place] [address] lung- pulse ox during tx Radiation Oncology Comment on above: lung- pulse ox during tx Start: 12-29-2024 End: 12-29-2024 Nursing evaluation of patient and report 12/29/2024 8:30 AM EDT Nurse Visit Radiation Oncology [address] [facility] [place] [address] Mae, Nurse Radt [address] [facility] [place] [address] pulse monitoring Radiation Oncology Comment on above: pulse monitoring Start: 12-29-2024 End: 12-29-2024 Patient encounter procedure 12/29/2024 8:15 AM EDT Appointment Radiation Oncology [address] [facility] [place] [address] lung- pulse ox during tx Radiation Oncology Comment on above: lung- pulse ox during tx Start: 12-28-2024 End: 12-28-2024 Nursing evaluation of patient and report 12/28/2024 8:30 AM EDT Nurse Visit Radiation Oncology [address] [facility] [place] [address] Mae, Nurse Radt [address] [facility] [place] [address] pulse monitoring Radiation Oncology Comment on above: pulse monitoring Start: 12-28-2024 End: 12-28-2024 Patient encounter procedure 12/28/2024 8:15 AM EDT Appointment Radiation Oncology [address] [facility] [place] [address] lung- pulse ox during tx Radiation Oncology Comment on above: lung- pulse ox during tx Start: 12-27-2024 End: 12-27-2024 Nursing evaluation of patient and report 12/27/2024 8:30 AM EDT Nurse Visit Radiation Oncology [address] [facility] [place] [address] Mae, Nurse Radt [address] [facility] [place] [address] pulse monitoring Radiation Oncology Comment on above: pulse monitoring Start: 12-27-2024 End: 12-27-2024 Patient encounter procedure 12/27/2024 8:15 AM EDT Appointment Radiation Oncology [address] [facility] [place] [address] lung- pulse ox during tx Radiation Oncology Comment on above: lung- pulse ox during tx Start: 12-26-2024 End: 12-26-2024 Nursing evaluation of patient and report 12/26/2024 3:15 PM EDT Nurse Visit Radiation Oncology [address] [facility] [place] [address] Mae, Nurse Radt [address] [facility] [place] [address] Pulse Monitoring Radiation Oncology Comment on above: [...] [facility] [place] [address] Mae, Nurse Radt [address] [facility] [place] [address] Pulse Monitoring Radiation Oncology Comment on above: Pulse Monitoring Start: 12-25-2024 End: 12-25-2024 Patient encounter procedure 12/25/2024 8:15 AM EDT Appointment Radiation Oncology [address] [facility] [place] [address] lung- pulse ox during tx Radiation Oncology Comment on above: lung- pulse ox during tx Start: 12-22-2024 End: 12-22-2024 Nursing evaluation of patient and report 12/22/2024 1:30 PM EDT Nurse Visit Radiation Oncology [address] [facility] [place] [address] Mae, Nurse Radt [address] [facility] [place] [address] Pulse Monitoring Radiation Oncology Comment on above: Pulse Monitoring Start: 12-22-2024 End: 12-22-2024 Patient encounter procedure 12/22/2024 1:00 PM EDT Appointment Radiation Oncology [address] [facility] [place] [address] lung- pulse ox during tx Radiation Oncology Comment on above: lung- pulse ox during tx Start: 12-21-2024 End: 12-21-2024 Patient encounter procedure 12/21/2024 8:15 AM EDT Appointment Radiation Oncology [address] [facility] [place] [address] lung- pulse ox during tx inpatient still? [...] Start: 12-18-2024 End: 12-18-2024 Patient encounter procedure [facility] Comment on above: lab follow up and chemotx Carbo/Taxol NEW START LUNG- LILIAM PT NEW START LUNG - MOR NINGS - LILIAM PT, med onc at 1 Start: 12-08-2024 End: 12-08-2024 Patient encounter procedure 12/08/2024 10:30 AM EDT Office Visit Radiation Oncology [address] [facility] [place] [address] Ezra Lizama MD [address] [facility] [place] [address] SIM Lung, IV contrast,esoph contrast, 4DCT, consent signed Radiation Oncology Comment on above: SIM Lung, IV contrast,esoph contrast, 4D CT, consent signed Start: 12-08-2024 End: 12-08-2024 Nursing evaluation of patient and report 12/08/2024 10:00 AM EDT Nurse Visit Radiation Oncology [address] [facility] [place] [address] Mae, Nurse Radt [address] [facility] [place] [address] IV start Radiation Oncology Comment on above: IV start Start: 12-07-2024 End: 12-07-2025 Device Interrogation Device Interrogation Cardiac Services Routine Pacemaker Expected: 12/07/2024, Expires: 12/07/2025 [employer] Work Phone: Comment on above: Expected: 12/07/2024, Expires: Start: 12-07-2024 End: 12-07-2024 Clinical Support [facility] Comment on above: CT Head Start: 12-04-2024 End: 12-27-2025 CT Head WO contrast CT BRAIN WO IVCON Radiology Routine Malignant neoplasm of lower lobe of right lung (HCC) Expected: 12/04/2024 (Approximate), Expires: 12/27/2025 [facility] Work Phone: Comment on above: Expected: 12/04/2024 (Approximate), Expi res: 12/27/2025 Start: 12-01-2024 End: 03-02-2025 CBC W Auto Differential panel - Blood COMPLETE BLOOD COUNT AND DIFFERENTIAL Lab Routine Malignant neoplasm of lower lobe of right lung (HCC) Expected: 12/01/2024 (Approximate), Expires: 03/02/2025 [facility] Work Phone: Comment on above: Expected: 12/01/2024 (Approximate), Expi res: 03/02/2025 Start: 12-01-2024 End: 03-02-2025 Cobalamin (Vitamin B12) [Mass/volume] in Serum or Plasma VITAMIN B12 Lab Routine Malignant neoplasm of lower lobe of right lung (HCC) Expected: 12/01/2024 (Approximate), Expires: 03/02/2025 [facility] Comment on above: Expected: 12/01/2024 (Approximate), Expi res: 03/02/2025 Start: 12-01-2024 End: 03-02-2025 Comprehensive metabolic 2000 panel - Serum or Plasma COMPREHENSIVE METABOLIC PANEL Lab Routine Malignant neoplasm of lower lobe of right lung (HCC) Expected: 12/01/2024 (Approximate), Expires: 03/02/2025 [facility] Comment on above: Expected: 12/01/2024 (Approximate), Expi res: 03/02/2025 Start: 12-01-2024 End: 03-02-2025 Ferritin [Mass/volume] in Serum or Plasma FERRITIN Lab Routine Malignant neoplasm of lower lobe of right lung (HCC) Expected: 12/01/2024 (Approximate), Expires: 03/02/2025 [facility] Comment on above: Expected: 12/01/2024 (Approximate), Expi res: 03/02/2025 Start: 12-01-2024 End: 03-02-2025 Folate [Mass/volume] in Serum or Plasma FOLATE, SERUM Lab Routine Malignant neoplasm of lower lobe of right lung (HCC) Expected: 12/01/2024 (Approximate), Expires: 03/02/2025 [facility] Comment on above: Expected: 12/01/2024 (Approximate), Expi res: 03/02/2025 Start: 12-01-2024 End: 03-02-2025 [facility] Lab Routine Malignant neoplasm of lower lobe of right lung (HCC) Expected: 12/01/2024, Expires: 03/02/2025 [facility] Comment on above: Expected: 12/01/2024, Expires: Start: 12-01-2024 End: 03-02-2025 Iron and Iron binding capacity panel - Serum or Plasma IRON AND TIBC Lab Routine Malignant neoplasm of lower lobe of right lung (HCC) Expected: 12/01/2024 (Approximate), Expires: 03/02/2025 [facility] Comment on above: Expected: 12/01/2024 (Approximate), Expi res: 03/02/2025 Start: 11-30-2024 End: 11-30-2024 Follow-up encounter 11/30/2024 3:30 PM EDT [facility] [address] [place] [address] Bee Pabon, JAMIL [address] [place] [address] Follow up lung/ severe weight loss Nutrition Therapy Comment on above: Follow up lung/ severe weight loss Start: 11-30-2024 End: 11-30-2024 Patient encounter procedure 11/30/2024 9:00 AM EDT Office Visit Radiation Oncology [address] [place] [address] [place] [address] Ezra Lizama MD [address] [facility] [place] [address] SIM Lung, IV contrast,esoph contrast, 4DCT, consent signed Radiation Oncology Comment on above: SIM Lung, IV contrast,esoph contrast, 4D CT, consent signed Start: 11-30-2024 End: 11-30-2024 Nursing evaluation of patient and report 11/30/2024 8:45 AM EDT Nurse Visit Radiation Oncology [address] [facility] [place] [address] Mae, Nurse Radt [address] [place] [address] [place] [address] IV Nurse visit Radiation Oncology Comment on above: IV Nurse visit Start: 11-27-2024 End: 11-27-2024 Nursing evaluation of patient and report 11/27/2024 9:00 AM EDT Nurse Visit Hematology/Oncology [address] [place] [address] [place] [address] Blanquita Hargrove, RN [address] [place] [address] [place] [address] weekly carbo taxol Hematology/Oncol ogy Comment on above: weekly carbo taxol Start: 11-23-2024 End: 11-23-2024 Patient encounter procedure 11/23/2024 3:00 PM EDT Office Visit Radiation Oncology [address] [place] [address] [place] [address] Ezra Lizama MD [address] [facility] [place] [address] SIM Lung, IV contrast,esoph contrast, 4DCT, consent signed Radiation Oncology Comment on above: SIM Lung, IV contrast,esoph contrast, 4D CT, consent signed Start: 11-23-2024 End: 11-23-2024 Nursing evaluation of patient and report 11/23/2024 2:45 PM EDT Nurse Visit Radiation Oncology [address] [place] [address] [place] [address] Mae, Nurse Radt [address] [place] [address] [place] [address] IV Nurse visit Radiation Oncology Comment on above: IV Nurse visit Start: 11-22-2024 End: 11-22-2025 Device Interrogation Device Interrogation Cardiac Services Routine Pacemaker- [place] Expected: 11/22/2024, Expires: 11/22/2025 [facility] Work Phone: Comment on above: Expected: 11/22/2024, Expires: Start: 11-22-2024 End: 11-22-2024 Patient encounter procedure 11/22/2024 1:00 PM EDT Office Visit [facility] [address] [place] [address] Shola Milan APRN-ABBEY [address] [place], [place] [id number] [facility] Start: 11-20-2024 End: 11-20-2024 Admission to same day surgery center 11/20/2024 11:30 AM EDT - 11/20/2024 1:30 PM EDT Surgery Admitting [address] [id number] Alexandre Robertson MD [address] [place] [address] BRONCHOSCOPY FLEXIBLE ADULT Admitting Comment on above: BRONCHOSCOPY FLEXIBLE ADULT Start: 11-20-2024 Subsequent hospital visit by physician 11/20/2024 11:30 AM EDT Hospital Encounter Admitting [address] [address] Alexandre Robertson MD [address] [place] [id number] 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] Admitting Comment on above: 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] Start: 11-20-2024 End: 11-20-2024 Brnchsc incl fluor gdnce dx w/cell washg spx PULM [facility] H23 Start: 11-17-2024 End: 11-17-2024 Follow-up encounter 11/17/2024 2:00 PM EDT Visit (SP) Office Hematology/Oncology [address] [place] [address] [place] [address] Rasheed Perez MD [address] [facility] [place] [address] 2 week follow up Hematology/Oncol ogy Comment on above: 2 week follow up Start: 11-17-2024 End: 11-17-2024 Patient encounter procedure 11/17/2024 1:00 PM EDT Office Visit Radiation Oncology [address] [facility] [place] [address] Ezra Lizama MD [address] [facility] [place] [address] Consult dx Lung cancer Radiation Oncology Comment on above: Consult dx Lung cancer Start: 11-15-2024 End: 11-15-2024 ambulatory 11/15/2024 12:10 PM EDT Procedure Cardiology [address] [address] PreOp Testing Cardiology Comment on above: PreOp Testing Start: 11-15-2024 End: 11-15-2024 Patient encounter procedure 11/15/2024 11:00 AM EDT Office Visit Pulmonary Medicine [address] [address] Alexandre Robertson MD [address] [place], [place] [id number] New Consultation Pulmonary Medicine Comment on above: New Consultation Start: 11-10-2024 End: 02-09-2025 CBC W Auto Differential panel - Blood COMPLETE BLOOD COUNT AND DIFFERENTIAL Lab Routine Malignant neoplasm of lower lobe of right lung (HCC) Expected: 11/10/2024 (Approximate), Expires: 02/09/2025 [facility] Comment on above: Expected: 11/10/2024 (Approximate), Expi res: 02/09/2025 Start: 11-10-2024 End: 02-09-2025 Cobalamin (Vitamin B12) [Mass/volume] in Serum or Plasma VITAMIN B12 Lab Routine Malignant neoplasm of lower lobe of right lung (HCC) Expected: 11/10/2024 (Approximate), Expires: 02/09/2025 [facility] Comment on above: Expected: 11/10/2024 (Approximate), Expi res: 02/09/2025 Start: 11-10-2024 End: 02-09-2025 Comprehensive metabolic 2000 panel - Serum or Plasma COMPREHENSIVE METABOLIC PANEL Lab Routine Malignant neoplasm of lower lobe of right lung (HCC) Expected: 11/10/2024 (Approximate), Expires: 02/09/2025 [facility] Comment on above: Expected: 11/10/2024 (Approximate), Expi res: 02/09/2025 Start: 11-10-2024 End: 02-09-2025 Ferritin [Mass/volume] in Serum or Plasma FERRITIN Lab Routine Malignant neoplasm of lower lobe of right lung (HCC) Expected: 11/10/2024 (Approximate), Expires: 02/09/2025 [facility] Comment on above: Expected: 11/10/2024 (Approximate), Expi res: 02/09/2025 Start: 11-10-2024 End: 02-09-2025 Folate [Mass/volume] in Serum or Plasma FOLATE, SERUM Lab Routine Malignant neoplasm of lower lobe of right lung (HCC) Expected: 11/10/2024 (Approximate), Expires: 02/09/2025 [facility] Comment on above: Expected: 11/10/2024 (Approximate), Expi res: 02/09/2025 Start: 11-10-2024 End: 02-09-2025 Iron and Iron binding capacity panel - Serum or Plasma IRON AND TIBC Lab Routine Malignant neoplasm of lower lobe of right lung (HCC) Expected: 11/10/2024 (Approximate), Expires: 02/09/2025 [facility] Comment on above: Expected: 11/10/2024 (Approximate), Expi res: 02/09/2025 Start: 11-10-2024 End: 11-26-2025 MR Brain WO and W contrast IV MRI BRAIN WO/W IVCON Radiology Routine Malignant neoplasm of lower lobe of right lung (HCC) Expected: 11/10/2024, Expires: 11/26/2025 [facility] Work Phone: Comment on above: Expected: 11/10/2024, Expires: Start: 11-10-2024 End: 11-10-2024 Patient encounter procedure 11/10/2024 9:00 AM EDT Office Visit Radiation Oncology [address] [place] [address] Ezra Lizama MD [address] [place] [address] Consult dx Lung cancer Radiation Oncology Comment on above: Consult dx Lung cancer Start: 11-10-2024 End: 11-10-2024 Follow-up encounter 11/10/2024 8:30 AM EDT Visit (SP) Office Hematology/Oncology [address] [place] [address] Rasheed Perez MD [address] [place] [address] 2 week follow up Hematology/Oncol ogy Comment on above: 2 week follow up Start: 11-08-2024 End: 11-08-2024 Patient encounter procedure 11/08/2024 2:30 PM EDT Office Visit [facility] [address] [place] [address] Maritza Best MD [address] [place] [address] [facility] Start: 10-30-2024 End: 10-30-2024 Nutrition therapy 10/30/2024 2:30 PM EDT Education Nutrition Therapy [address] [place] [address] Bee Pabon, JAMIL [address] [place] [address] Nutri phone call ref by Dr Perez Nutrition Therapy Comment on above: Nutri phone call ref by Dr Perez Start: 10-27-2024 End: 10-27-2024 ambulatory 10/27/2024 9:00 AM EDT Visit (SP) Office Hematology/Oncology [address] [place] [address] Rasheed Perez MD [address] [place] [address] [place] [address] 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 Hematology/Oncol ogy Comment on above: 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 Start: 09-29-2024 COVID-19 Vaccine (4 - Mixed Product risk ) COVID-19 Vaccine (4 - Mixed Product risk season) [facility] Start: 08-31-2024 [facility] Start: 02-13-2024 Covid-19 Vaccine ( - season) Covid-19 Vaccine ( season) [facility] Start: 10-01-2023 Diabetes Screening Diabetes Screening [facility] Start: 2021 RSV Vaccine (1 - Risk 60-74 years 1-dose series) RSV Vaccine (1 - Risk 60-74 years 1-dose series) [facility] Start: 11-03-2011 Administration of varicella zoster vaccine Zoster (Shingles) Vaccine (1 of 2) [facility] Start: 11-03-2011 Pneumococcal Vaccine: 50+ (1 of 1 - PCV) Pneumococcal Vaccine: 50+ (1 of 1 - PCV) [facility] Start: 11-03-2011 Shingrix Vaccine (1 of 2) Shingrix Vaccine (1 of 2) [facility] Start: 2006 Prostate specific antigen measurement Prostate Cancer Screening Discussion [facility] Start: 2006 Screening for malignant neoplasm of colon [facility] Start: 1980 Administration of varicella zoster vaccine Zoster (Shingles) Vaccine (1 of 2) [facility] Start: 1980 DTaP,Tdap and Td Vaccines (1 - Tdap) DTaP,Tdap and Td Vaccines (1 - Tdap) [facility] Start: 1980 Pneumococcal Vaccine: 50+ (1 of 2 - PCV) Pneumococcal Vaccine: 50+ (1 of 2 - PCV) [facility] Start: 1980 Shingrix Vaccine (1 of 2) Shingrix Vaccine (1 of 2) [facility] Start: 1980 Urine microalbumin profile DTaP,Tdap,Td Vaccine (1 - Tdap) [facility] Start: 11-03-1979 Adult BMI Follow Up Plan Adult BMI Follow Up Plan [facility] Start: 11-03-1979 Adult BMI Screening Adult BMI Screening [facility] Start: 11-03-1979 Anxiety Screening Anxiety Screening [facility] Start: 11-03-1979 Depression Screening Depression Screening [facility] Start: 11-03-1979 Hepatitis C screening Hepatitis C Screening [facility] Start: 11-03-1979 HIV screening HIV Screening [facility] Start: 1973 Depression Screening Depression Screening [facility] Start: 1973 Tobacco Screening Tobacco Screening [facility] Start: 1961 Screening for malignant neoplasm of colon [facility] BLOOD CULTURE 1 BLOOD CULTURE 1 Lab Routine 10/06/2024 6:12 PM EDT [facility] Work Phone: BLOOD CULTURE 2 BLOOD CULTURE 2 Lab Routine 10/06/2024 6:20 PM EDT [facility] CARDIAC IMPLANTABLE DEVICE CHECK CARDIAC IMPLANTABLE DEVICE CHECK PACEART Routine 11/20/2024 10:41 AM EDT [facility] Work Phone: CBC W Auto Different ial panel - Blood COMPLETE BLOOD COUNT AND DIFFERENTIAL Lab Routine Malignant neoplasm of lower lobe of right lung (HCC) 01/24/2025 1:29 PM EDT [facility] Work Phone: CT Guidance for radi ation treatment of Unspecified body region CT SIM PLANNING RADIATION ONCOLOGY Radiology Routine Malignant neoplasm of lower lobe of right lung (HCC) Ordered: 12/04/2024 [facility] Work Phone: Comment on above: Ordered: 12/04/2024 Patient Education [facility] Work Phone: Patient referral [facility] Work Phone: End: 12-23-2025 SPIROMETRY BASELINE ONLY SPIROMETRY BASELINE ONLY PFT Routine Malignant neoplasm of lower lobe of right lung (HCC) 1 Occurrences starting 11/23/2024 until 12/23/2025 [facility] Work Phone: Comment on above: 1 Occurrences starting 11/23/2024 until 12/23/2025 XR Chest 2 Views [facility] Immunizations Immunization Date Immunization Notes Care Provider Pilar alan 03-31-2024 Seasonal, trivalent, recombinant, injectable influenza vaccine, preservative free Shola Bjorn 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-SENIOR WINDOWS ADMINISTRATOR Work Phone: [facility] 03-31-2024 influenza virus vaccine, unspecified formulation Maritza Best MD Work Phone: [facility] 04-21-2023 influenza virus vaccine, unspecified formulation VICTORIA SANDRA [facility] 04-21-2023 Seasonal, quadrivalent, recombinant, injectable influenza vaccine, preservative free Shola Bjorn 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-SENIOR WINDOWS ADMINISTRATOR Work Phone: [facility] 03-16-2022 influenza virus vaccine, unspecified formulation VICTORIA SANDRA [facility] 03-16-2022 Seasonal, quadrivalent, recombinant, injectable influenza vaccine, preservative free Shola Bjorn 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-SENIOR WINDOWS ADMINISTRATOR Work Phone: [facility] 04-07-2021 influenza virus vaccine, unspecified formulation VICTORIA SANDRA [facility] 04-07-2021 influenza, seasonal, injectable Shola Bjorn 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-SENIOR WINDOWS ADMINISTRATOR Work Phone: [facility] 09-25-2020 SARS-CoV-2 (COVID-19 ) mRNA-1273 vaccine VICTORIA SANDRA [facility] Comment on above: Result Comment: [id number]: 51 08-28-2020 SARS-CoV-2 (COVID-19 ) mRNA-1273 vaccine VICTORIA SANDRA [facility] 06-14-2020 SARS-CoV-2 (COVID-19 ) [id number] vaccine VICTORIA FLORES [facility] Comment on above: Result Comment: pt leigha mac he is fully vaccinated 04-02-2020 influenza virus vaccine, unspecified formulation VICTORIA FLORES [facility] 04-02-2020 Influenza, injectabl e, Madin [place] Canine Kidney, quadrivalent with preservative Shola Torret 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-SENIOR WINDOWS ADMINISTRATOR Work Phone: [employer] 03-14-2017 influenza virus vaccine, unspecified formulation VICTORIA FLORES [facility] Payers Date Payer Category Payer Private Health Insurance [id number] 2020 Blue Cross Blue Shield [id number] [id number] 2013 Blue Cross Blue [facility] - Other ANTH [id number] 1961 Unknown [id number] ..840.1.497556.3.579. 2.593 1961 Unknown [id number] 840.1.457241.3.579. 2.593 1961 Unknown [id number] 2.16.840.1.365270.3.579. 2.593 1961 Unknown [id number] 2.16.840.1.740198.3.579. 2.727 1961 Unknown [id number] 2.16.840.1.210713.3.579. 2.72 1961 Unknown [id number] 2.16.840.1.801283.3.579. 2.727 1961 Unknown [id number] 2.16.840.1.004616.3.579. 2.72 1961 Unknown [id number] 2.16.840.1.034351.3.579. 2.727 1961 Unknown [id number] 2.16.840.1.083810.3.579. 2.72 1961 Unknown [id number] 2.16.840.1.340757.3.579. 2.72 1961 Unknown [id number] 2.16.840.1.701650.3.579. 2.72 1961 Unknown [id number] 2.16.840.1.399126.3.579. 2.727 1961 Unknown [id number] 2.16.840.1.183584.3.579. 2.72 1961 Unknown [id number] 2.16.840.1.400574.3.579. 2.72 1961 Unknown [id number] 2.16.840.1.534444.3.579. 2.1286 1961 Unknown [id number] 2.16.840.1.461039.3.579. 2.128 1961 Unknown [id number] 2.16.840.1.063944.3.579. 2.1282 Unknown [id number] 2.16.840.1.542598.3.579. 2.1285 1961 Unknown [id number] 2.16.840.1.405832.3.579. 2.1285 1961 Unknown [id number] 2.16.840.1.632761.3.579. 2.1285 1961 Unknown [id number] 2.16.840.1.420095.3.579. 2.1285 1961 Unknown [id number] 2.16.840.1.556156.3.579. 2.1285 1961 Unknown [id number] 2.16.840.1.880157.3.579. 2.1285 1961 Unknown [id number] 2.16.840.1.329200.3.579. 2.1285 1961 Unknown [id number] 2.16.840.1.714654.3.579. 2.1285 1961 Unknown [id number] 2.16.840.1.664703.3.579. 2.1285 1961 Unknown [id number] 2.16.840.1.953921.3.579. 2.1285 1961 Unknown [id number] 2.16.840.1.445953.3.579. 2.1285 1961 Unknown [id number] 2.16.840.1.086796.3.579. 2.1285 1961 Unknown [id number] 2.16.840.1.209726.3.579. 2.1285 1961 Unknown [id number] 2.16.840.1.198936.3.579. 2.1285 1961 Unknown [id number] 2.16.840.1.234289.3.579. 2.1258 1961 Unknown [id number] 2.16.840.1.391483.3.579. 2.1259 1961 Unknown [id number] 2.16.840.1.430728.3.579. 2.1259 1961 Unknown [id number] 2.16.840.1.694173.3.579. 2.1259 1961 Unknown [id number] 2.16.840.1.465640.3.579. 2.1259 1961 Unknown [id number] 2.16.840.1.122589.3.579. 2.1259 1959 Unknown [id number] Social History Date Type Detail Facility Start: 06-29-2023 End: 11-08-2024 Tobacco smoking status Ex-smoker (finding) [facility] Start: 05-15-2012 End: 08-26-2022 Tobacco smoking status Never [facility] Start: 07-25-2020 End: 10-25-2024 Sex Assigned At Male [facility] Start: 01-17-2015 End: 08-31-2024 Sex Male (finding) [facility] Start: 1960 Sex Assigned At Male F [facility] Tobacco smoking stat NHIS Tobacco smoking consumption unknown [facility] Start: 1960 Sex assigned at Not on file [facility] Start: 06-14-2016 End: 01-04-2017 History of tobacco use Current smoker [facility] Start: 06-14-2016 End: 01-04-2017 History of tobacco use Cigarette Smoker [facility] History of tobacco use Passive smoker [facility] Start: 10-25-2024 End: 11-08-2024 Tobacco use and exposure Smokeless tobacco non-user [facility] Start: 10-25-2024 End: 02-09-2025 Alcoholic beverage intake Ex-drinker (finding) [facility] Start: 07-25-2020 End: 10-25-2024 History of Social function [facility] Start: 03-31-2017 End: 11-08-2024 Alcoholic beverage intake Current drinker of alcohol (finding) [employer] [facility] Has the electric, [employer], [employer], or water company threatened to shut off services in your home in past 12Mo No [employer] [facility] How often to you hav e a drink containing alcohol? Monthly or less [facility] How many standard drinks containing alcohol do you have on a typical day? 1 or 2 [facility] How often do you hav e 6 or more drinks on 1 occasion? Never [employer] [facility] Start: 11-17-2024 Alcohol Comment rarely [facility] Start: 01-04-2025 End: 01-17-2025 SDOH Follow up SDOH Follow up [facility] Work Phone: Sexual Orientation [facility] Medical Equipment Procedure Code Equipment Code Equipment Origin al Text Equipment Identifier Dates Lead Pcng 52cm A tr Vntrc Ingevity+ Xtd Rtrct Fx Is-1 Cnct - [id number] - [id number] [id number]_[facility] FDA Start: 11-09-2024 Lead Pcng 59cm A tr Vntrc Ingevity+ Xtd Rtrct Fx Is-1 Cnct - [id number] - [id number] ()[id number], [id number]_[facility] FDA Start: 11-09-2024 Cardiac pacemaker, device (physical object) ([id number]) Pacemaker .75cm Acld Mri El 2 Chmbr Is-1 Cnct Avinash Mntr 4.45 - [id number] - [id number] ()[id number] , 299791_[facility] FDA Start: 11-09-2024 [id number]_[facility] Start: 10-12-2024 [id number]_[facility] Start: 10-12-2024 [id number]_[facility] Start : 11-09-2024 Goals Date Patient Goal Desired Activity /State Personal health goal Comment on above: Formatting of this n ote might be different from the original. Evaluation of progress towards goal: Pt plans to return home self care with support. Functional Status Date Assessment Result Facility 01-06-2025 Functional status Patient at Baseline [facility] Work Phone: 01-02-2025 Functional status Patient at Baseline [facility] Work Phone: 06-29-2023 Functional Status N/A [facility] Mental Status Date Assessment Result Facility 01-06-2025 Cognitive function Cognitive Sta tus Patient at Baseline [facility] Work Phone: 01-02-2025 Cognitive function Cognitive Sta tus Patient at Baseline [facility] Work Phone: Clinical Notes 06-29-2023 to 03-29-2025 Telephone Encounter - Rosey Potter - 03/29/2025 3:42 PM EDTTelephone Encounter - Rosey Potter - 03/29/2025 3:42 PM EDTTelephone Encounter - Rosey Potter - 03/28/2025 11:45 AM EDTPatient Instructions Note Date & Type Note Facility 03-29-2025 Telephone encounter Note called back and confirmed his PT's out; starting 04/02/25. [facility] 03-29-2025 Miscellaneous Notes called back and confirmed his PT's out; starting 04/02/25. had contacted noting he has a chest cold and feeling discomfort and weakness all over; she cx his PT for 03/29/25. I reminded and she said he'll hopefully be able to be at his 04/02/25 PT. documented in this encounter [facility] 03-28-2025 Note [facility] 03-28-2025 Telephone encounter Note had contacted noting he has a chest cold and feeling discomfort and weakness all over; she cx his PT for 03/29/25. I reminded and she said he'll hopefully be able to be at his 04/02/25 PT. [facility] 03-26-2025 Telephone encounter Note called noting he is not feeling well and weak getting dressed; cx PT today. [facility] 03-26-2025 Miscellaneous Notes called noting he is not feeling well and weak getting dressed; cx PT today. documented in this encounter [facility] 03-23-2025 Note [facility] 03-22-2025 History of Present illness Narrative [...] home with one handrail. Lives in [address] [place] home; has moved bed downstairs due to [...] to be instructed in home exercise program. [facility] Goals: To be met in 10 weeks [...] sign below. Date: documented in this encounter [facility] 03-20-2025 Note [facility] 03-20-2025 Note [facility] 03-14-2025 History of Present illness Narrative I agree with the findings in the scanned document. documented in this encounter [facility] 03-09-2025 History of Present illness Narrative Images [...] to be instructed in home exercise program. [facility] Goals: To be met in 10 weeks [...] sign below. Date: documented in this encounter [facility] 03-07-2025 History of Present illness Narrative Images [...] to be instructed in home exercise program. [facility] Goals: To be met in 10 weeks [...] sign below. Date: documented in this encounter [facility] 02-27-2025 Telephone encounter Note Yvette, cardiology nurse with Dr. Best's office, notified Jatin completed his radiation treatments on 02/22/[address] Best to make recommendations for pacemaker device checks post radiation completion. Shavon is thankful for our call. Cassia Cantu RN [facility] 02-27-2025 Miscellaneous Notes Yvette, cardiology nurse with Dr. Best's office, notified Jatin completed his radiation treatments on 02/22/[address] Best to make recommendations for pacemaker device checks post radiation completion. Shavon is thankful for our call. Cassia Cantu RN documented in this encounter [facility] 02-27-2025 Miscellaneous Notes Call from Nereyda at [facility]. They wanted to let us know that patient has completed radiation therapy to the chest. Dr. Lizama, radiation oncology, is deferring need for any further device checks to our office. They weren't sure if he needed a check post radiation? Message to SER. Would recommend device check post radiation completion next couple weeks and can be the [place] [facility]. Patient lives in [place]. Does not need a SALVAGE ENGINEER nurse visit though Patient has upcoming appointment with SER on 05/30/25. Will have scheduling (Mahin) work on a date closer to 2 week as recommended. 03/14/25 device check scheduled. documented in this encounter [facility] 02-27-2025 Telephone encounter Note Call from Nereyda at [place]. They wanted to let us know that patient has completed radiation therapy to the chest. Dr. Lizama, radiation oncology, is deferring need for any further device checks to our office. They weren't sure if he needed a check post radiation? Message to SER. [facility] [employer] [facility] 02-27-2025 Telephone encounter Note Would recommend device check post radiation completion next couple weeks and can be the [place] office. Patient lives in [place]. Does not need a SALVAGE ENGINEER nurse visit though [facility] Work Phone: 02-27-2025 Telephone encounter Note Patient has upcoming appointment with SER on 05/30/25. Will have scheduling (Mahin) work on a date closer to 2 week as recommended. [facility] [employer] [facility] 02-27-2025 Telephone encounter Note 03/14/25 device check scheduled. [facility] [employer] [facility] 02-23-2025 Note [facility] 02-23-2025 History of Present illness Narrative NUTRITION THERAPY ONCOLOGY NOTE Reassessment I have communicated my name and active licensure. The patient's identity and physical location were verified at the time of this visit. Either the patient or their legal agency service representative has been informed of the risks [...] Insecurity: No Food Insecurity (11/09/2024) Received from [employer] [facility] Screening Within the past 12 months [...] Dosing Weight: 72.6 kg Estimated kilocalorie needs: 8782-1665 kilocalories determined by 22-25 kcal/kg Estimated protein needs: 72-87 grams determined by 1.0-1.2 g/kg Dosing weight Estimated fluid needs: 2818-0625 milliliters based on 1 mL per kcal [...] II DATE: 02/23/2025 documented in this encounter [facility] 02-22-2025 History of Present illness Narrative [...] Cassia Cantu RN documented in this encounter [facility] 02-22-2025 Note [facility] 02-22-2025 Note [facility] 02-21-2025 Note [facility] 02-21-2025 Telephone encounter Note Is there any update on this for this pt? He did have oncology referral prior to starting Tx. Thank you!! Macy Morgan RN [facility] 02-21-2025 Miscellaneous Notes Is there any update on this for this pt? He did have oncology referral prior to starting Tx. Thank you!! Macy Morgan RN Pt has seen pipelines superintendent in the past. I will copy them on this info to see if they can be of assistance in recommending this. Macy Morgan RN Annel- can you possibly look into pts information and see if he would qualify for the [facility] assistance for nutritional supplements? Pt is relying primarily on supplements and I suggested they switch to [facility] to get more calories in as he is losing weight consistently. She was interested in possible assistance but not sure of qualifications. Thank you Macy Morgan, RN documented in this encounter [facility] 02-21-2025 Instructions Rasheed Perez MD - 02/21/2025 9:45 AM EDT IV fluids today Schedule neulasta tmrw Ordered pet scan to be done in 4 weeks F/u in 5 weeks documented in this encounter [facility] 02-21-2025 History of Present illness Narrative Images from the original note were not included. PATIENT NAME: Jatin Koch II CLINIC NO.: [id number] ATTENDING PHYSICIAN: Rasheed Perez MD DATE OF SERVICE: 02/21/[address] Chip Carbajal [address] [address] thank you for referring Jatin Koch II [...] pneumonia - [facility] C/[facility] [facility] in December 2024 is negative for mets. - C/o right sided chest pain - He will finish antibiotics on Wednesday. 01/02/25: - C/o chills. - Started radiation today - Cycle 1 chemo today. - C/o loss of appetite and weight loss. 01/08/25: - Hospitalized last week with PNA. Treated with Abx. - CT chest at [facility] on 01/02/25 showed T5 lytic lesin. Cannot exclude malignancy - On PO abx - No other complaints. 01/15/25: - C/o worsening chest pain - C/o Shortness of Breath and difficulty swallowing - C/o headache and vision changes. 01/18/25: - Hospitalized at [facility] for pneumonia - C/o chest [...] wednesday Current Outpatient Medications Medication Sig Ipratropium Exeter (ATROVENT) 21 mcg (0.03 %) nasal spray [...] Range Status 02/14/2025 0.0 % Final Abs Elk Date Value Ref Range Status 02/14/2025 0.00 [...] pneumonia - CT C/A/P at [facility] in December 2024 is negative for mets - Right lung, bronchus intermedius, endobronchial biopsy: Squamous cell carcinoma. PD-L1 TPS 0%. - Due for cycle 1 D1 weekly carbo taxol on 01/02/25. Pt developed infusion reaction after starting Taxol infusion. - Developed sweating, hypotension, lethargy, tachycardia etc. Pt was sent to hospital. - CT chest at [facility] on 01/02/25 showed T5 lytic [...] maintenance Durvalumab depending on PET findings. - [facility] one test on showed no evidence of actionable mutations. - All his questions answered in detail. - F/u in [address] Chip [place] [address] thank you for allowing me to participate in [facility], if there are any questions or concerns please do not hesitate to contact me at the number below. I spent a total of 30 minutes on the date of the service which included preparing to see the patient, [id number] patient care, completing clinical documentation, obtaining and/or reviewing separately obtained history, performing a medically appropriate examination, counseling and educating the patient/family/caregiver, ordering medications, tests, or procedures, communicating with other HCPs (not separately reported), independently interpreting results (not separately reported), communicating results to the patient/family/caregiver, and care coordination (not separately reported). Rasheed Perez MD. Hematology and Oncology Services Provided at: [place], [place] CC: documented in this encounter [facility] 02-21-2025 Note [facility] 02-21-2025 History of Present illness Narrative [...] Cassia Cantu, RN documented in this encounter [facility] 02-21-2025 Note [facility] 02-20-2025 Note [facility] 02-20-2025 History of Present illness Narrative Pulse Monitored during radiation treatment. Pre Tx Pulse 104, Pulse Ox 94% Cone Beam Pulse 100 Pulse Ox 94% Beam on Pulse 100-1-2 Pulse Ox 94-100% Post Treatment Pulse 100 Pulse Ox 98% Macy Morgan RN documented in this encounter [facility] 02-20-2025 Instructions Sheila Freeman APRN.ABBEY - 02/20/2025 11:04 AM EDT Sheila Freeman CNP Department of Palliative and Supportive Care Palliative Care - Specialty services in symptom management and support For questions or prescription refills, call: [phone] Wednesday - Wednesday 9AM-5PM MARIELLA Estrella, RN - Customs Opener Verifier Packer Please call 3-5 days in advance for medication refills Evenings, Weekends, Holidays: [phone] (ask for palliative medicine on-call provider) For appointments, cancellations or reschedule, call: [phone] documented in this encounter [facility] 02-20-2025 Telephone encounter Note OK to do IV fluids today. I will enter it. Thank you [facility] 02-20-2025 Miscellaneous Notes OK to do [...] Cassia Cantu RN documented in this encounter [facility] 02-20-2025 Telephone encounter Note Jatin is [...] office this a.m. Thanks Cassia Cantu RN [facility] 02-20-2025 Note [facility] 02-20-2025 History of Present illness Narrative PALLIATIVE MEDICINE PROGRESS NOTE SERVICE DATE: February 20, 2025 IDENTIFICATION AND INTRODUCTION: Jatin Koch II is a 64 year old male This visit took place In Ambulatory [facility] Facility Recording using InNetwork software for draft documentation of the visit was discussed with the patient/authorized agency service representative; all questions welcomed and answered. Patient/authorized agency service representative agreed to proceed CHIEF COMPLAINT: Neoplasm [...] coughing episodes. REVIEW OF SYSTEMS: Modified ESAS ([place] Symptom Assessment Scale) Information Provided By: Patient [...] activity was identified. 02/20/2025 by Sheila Freeman, SALVAGE ENGINEER, 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.SENIOR WINDOWS ADMINISTRATOR Assessment & Plan 1. Malignant neoplasm of [...] which included preparing to see the patient, [id number] patient care, completing clinical documentation, obtaining and/or reviewing separately obtained history, performing a medically appropriate examination, counseling and educating the patient/family/caregiver, ordering medications, tests, or procedures, communicating with other HCPs (not separately reported), independently interpreting results (not separately reported), communicating results to the patient/family/caregiver, and care coordination (not separately reported). Next Visit: 4 Weeks in-person Palliative Medicine Nurse to do telephonic follow-up: Yes President Ceo & Founder Services: None at this time Referral to Stock Sorter: No, not at this time Sheila Freeman NP, VINAY.SENIOR WINDOWS ADMINISTRATOR February 20, 2025 10:36 AM This note may have been partially generated using the [employer] voice recognition system. While every effort was made to correct voice recognition errors, kindly be aware that some errors may occasionally occur. documented in this encounter [facility] 02-19-2025 Note [facility] 02-19-2025 History of Present illness Narrative Pulse monitored during radiation treatment as ordered. Pre Tx Pulse 113, Pulse Ox 97% Cone Beam Pulse 112, Pulse Ox 94% Beam on Pulse 112, Pulse Ox 96% After Treatment Pulse 112, Pulse Ox 94-95% Macy Morgan RN documented in this encounter [facility] 02-19-2025 Telephone encounter Note Records scanned. [facility] 02-19-2025 Miscellaneous Notes Records scanned. Call received from pt's stating pt went to [place] [facility] last night because he couldn't swallow [...] pharmacy if possible. Will get records from [facility] as well. LILIAM- can you please sign order so pt/spouse can pickle maker when they come in? Reyna- please get records and images from [place]. Thank you Macy Morgan, RN documented in this encounter [facility] 02-19-2025 Telephone encounter Note Patient coming Wednesday02/21/25 for follow up with labs. Please add lab orders. Thanks. Dara Vásquez MA [facility] 02-19-2025 Telephone encounter Note Call received from pt's stating pt went to [place] [facility] last night because he couldn't swallow [...] was transferred to radiation. Blanquita Hargrove RN [facility] Work Phone: 02-19-2025 Telephone encounter Note [...] pharmacy if possible. Will get records from [facility] as well. LILIAM- can you please sign order so pt/spouse can pickle maker when they come in? Reyna- please get records and images from [place]. Thank you Macy Morgan, RN [facility] 02-16-2025 Note [facility] 02-16-2025 History of Present illness Narrative [...] Cassia Cantu RN documented in this encounter [facility] 02-15-2025 Telephone encounter Note Brian Reyesmaryjane (son) called the fax copy of his [facility] paperwork never went through. So,he is requesting that his paperwork be sent through email at [email or web address] and to [email or web address]. Done with success. Dara Vásquez MA [facility] 02-15-2025 Note [facility] 02-15-2025 History of Present illness Narrative Jatin is here for radiation therapy with continuous pulse oximetry. Pulse SpO2 Pre tx 106-109 97% Cone beam 106-108 97% Post cb 106-108 96-98% Tx 105-107 96-97% Post tx 105 96% Patient tolerated treatment without concerns. Cassia Cantu RN documented in this encounter [facility] 02-14-2025 Note [facility] 02-14-2025 History of Present illness Narrative [...] Cassia Cantu RN documented in this encounter [facility] 02-14-2025 Telephone encounter Note 1 unit packed RBC's at [facility] on 02-15-25. Went today 02-14-25 for lab draw. Order was faxed. [facility] 02-14-2025 Miscellaneous Notes 1 unit packed RBC's at [facility] on 02-15-25. Went today 02-14-25 for lab draw. Order was faxed. documented in this encounter [facility] 02-14-2025 Telephone encounter Note Pharmacy sends request for 90 day Rx of Ipratropium nasal spray. Order pended if provider agreeable. Thank you, REMA Koroma, [facility] Test Bore Helper [facility] 02-14-2025 Miscellaneous Notes Pharmacy sends request for 90 day Rx of Ipratropium nasal spray. Order pended if provider agreeable. 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 I will copy them on this info to see if they can be of assistance in recommending this. Macy Morgan, RN [facility] 02-14-2025 Telephone encounter Note Annel- can you possibly look into pts information and see if he would qualify for the [facility] assistance for nutritional supplements? Pt is relying primarily on supplements and I suggested they switch to [facility] to get more calories in as he is losing weight consistently. She was interested in possible assistance but not sure of qualifications. Thank you Macy Morgan, RN [facility] 02-14-2025 History of Present illness Narrative Images from the original note were not included. PATIENT NAME: Jatin Koch II CLINIC NO.: [id number] ATTENDING PHYSICIAN: Rasheed Perez MD DATE OF SERVICE: February 14, 2025 (Silvia) Dear Dr. Chip Carbajal [address] [place] [address] thank you for referring Jatin Koch II [...] pneumonia - CT C/A/P at [facility] in December 2024 is negative for mets. - C/o right sided chest pain - He will finish antibiotics on Wednesday. 01/02/25: - C/o chills. - Started radiation today - Cycle 1 chemo today. - C/o loss of appetite and weight loss. 01/08/25: - Hospitalized last week with PNA. Treated with Abx. - CT chest at [facility] on 01/02/25 showed T5 lytic lesin. Cannot exclude malignancy - On PO abx - No other complaints. 01/15/25: - C/o worsening chest pain - C/o Shortness of Breath and difficulty swallowing - C/o headache and vision changes. 01/18/25: - Hospitalized at [facility] for pneumonia - C/o chest [...] tablet by mouth daily at bedtime. Ipratropium Exeter (ATROVENT) 21 mcg (0.03 %) nasal spray [...] Range Status 02/05/2025 5.6 % Final Abs Elk Date Value Ref Range Status 02/05/2025 1.10 [...] pneumonia - CT C/A/P at [facility] in December 2024 is negative for mets - Right lung, bronchus intermedius, endobronchial biopsy: Squamous cell carcinoma. PD-L1 TPS 0%. - Due for cycle 1 D1 weekly carbo taxol on 01/02/25. Pt developed infusion reaction after starting Taxol infusion. - Developed sweating, hypotension, lethargy, tachycardia etc. Pt was sent to hospital. - CT chest at [facility] on 01/02/25 showed T5 lytic [...] - Order 1 unit PRBC transfusion at [facility]. - Educated patient and family on the role of hemoglobin in oxygen transport and the expected improvement in fatigue and weakness following transfusion. - We will repeat PET scan 3-4 weeks after completing radiation therapy and then start maintenance Durvalumab depending on PET findings. - All his questions answered in detail. - F/u in [address] Chip Carbajal [address] [place] [address] thank you for allowing me to participate in Jatin Koch care, if there are any questions or concerns please do not hesitate to contact me at the number below. I spent a total of 30 minutes on the date of the service which included preparing to see the patient, [id number] patient care, completing clinical documentation, obtaining and/or reviewing separately obtained history, performing a medically appropriate examination, counseling and educating the patient/family/caregiver, ordering medications, tests, or procedures, communicating with other HCPs (not separately reported), independently interpreting results (not separately reported), communicating results to the patient/family/caregiver, and care coordination (not separately reported). Tristin Wong APRN, SALVAGE ENGINEER-C, OCN Hematology and Oncology Services Provided at: [place], [place] CC: documented in this encounter [facility] 02-14-2025 Note [facility] 02-14-2025 History of Present illness Narrative [...] Cassia Cantu, RN documented in this encounter [facility] 02-14-2025 Note [facility] 02-14-2025 Note [facility] 02-13-2025 Note [facility] 02-13-2025 History of Present illness Narrative [...] Macy Morgan, PRITI documented in this encounter [facility] 02-13-2025 Telephone encounter Note Patient's schedule has been adjusted. Patient was scheduled to see a provider tomorrow and his radiation was at 11:45 start, so did a different time in the AM to allow for patient to see CANDICE. Thanks! Carolina Perdue [facility] 02-13-2025 Miscellaneous Notes Patient's schedule has [...] Blanquita Hargrove RN documented in this encounter [facility] 02-13-2025 Telephone encounter Note Spoke with treatment lead and pt's appointment tomorrow for chemo needs to be moved up to 1130. Cis is a 4 hour treatment and pt will also be getting IV magnesium pre and post cisplatin. Please adjust schedule and notify pt of any time changes when he is here today for radiation. Thanks Blanquita Hargrove RN [facility] Work Phone: 02-09-2025 History of Present illness Narrative Jatin Pulliam Crispin ANSARI Date of visit: 02/09/2025 Date of : 1960 Age: 64 y.o. Patient Active Problem List Diagnosis AV block BPH with urinary obstruction Arthritis Gout Squamous cell lung cancer ([facility]) Syncope Pacemaker- [employer] Allergies Allergen Reactions Emend [Aprepitant] Anaphylaxis Etoposide [...] Complaint Patient presents with Follow-up ov/pm d/c [facility] afib med changes ian w pt - aware [facility] office Device Check History of Present Illness Jatin Koch II is here on follow-up after recent ER visits for tachycardia and shortness of breath. He has a history of paroxysmal atrial fibrillation, intermittent complete heart block, lung CA currently receiving radiation treatments managed by [facility] Oncology [facility] office. He was hospitalized in October at [place] warranting pacemaker: [employer] dual-chamber. Patient has been to the [...] have him set to follow-up in May [place] office. Past Medical History: Diagnosis Date Arthritis Hypertension Lung cancer (CMS-HCC) Sleep apnea No data recorded No data recorded No data recorded Past Surgical History: Procedure Laterality Date EP Invasive DC PPM Left 11/09/2024 Performed by Robert Veloz MD at [facility] (EP) SKIN BIOPSY basal cell carcinoma removed from left faith TONSILLECTOMY TURP / TRANSURETHRAL INCISION / DRAINAGE [...] Squamous cell carcinoma of lung, unspecified laterality ([facility]) 1. Intermittent complete heart block s/p [employer] dual-chamber pacemaker 11/09/2024. Known elevated atrial [...] valvulopathy on echo completed January 2025 at [facility] Continue remote monitoring. Appointment follow-up arranged in May. Patient seen while Dr. Reyna was immediately available in the office suite TODAYS ORDERS Orders Placed This Encounter Procedures Device Interrogation POCT EKG FOLLOW UP Return in about 4 months (around 06/11/2025) for Next scheduled follow up kechi with d check. PCP: CLINT PRINCE Referring Physician: CLINT Prince [address] [address] CLINT Chowdary 02/09/25 1641 documented in this encounter [facility] 02-09-2025 History of Present illness Narrative I agree with the findings in the scanned document. documented in this encounter [facility] 02-09-2025 Note [facility] 02-09-2025 History of Present illness Narrative Jatin is here for radiation therapy with continuous pulse oximetry Pulse SpO2 Pretx 83-108 96-97% Cone beam 91-109 96-97% Post cb 91-114 97% Tx 82-112 97% Post tx 93-110 97% Patient tolerated treatment without concerns. Cassia Cantu RN documented in this encounter [facility] 02-08-2025 Note [facility] 02-08-2025 History of Present illness Narrative Pulse Monitored during radiation treatment. Pre Tx Pulse 95 Pulse Ox 97% Cone Beam Pulse 94 Pulse Ox 97% Beam on Pulse 94-97 Pulse Ox 97% Post Tx Pulse 94 Pulse Ox 96% Macy Morgan, PRITI documented in this encounter [facility] 02-08-2025 Miscellaneous Notes Called patient to remind them to bring their most current copy of their medication list with them to their appt. Patient verbalizes understanding. documented in this encounter [facility] 02-08-2025 Telephone encounter Note Called patient to remind them to bring their most current copy of their medication list with them to their appt. Patient verbalizes understanding. [facility] 02-08-2025 Note [facility] 02-08-2025 History of Present illness Narrative Patient continued/worsening hiccufs despite taking baclofen, an Rx for thorazine was sent to [facility]. Patient was notified and agrees. Charlotte Butler RN documented in this encounter [facility] 02-08-2025 Telephone encounter Note notified Blanquita Hargrove RN [facility] Work Phone: 02-08-2025 Miscellaneous Notes notified [...] any other concerns at this time. Prefers [facility] in [place] if a script is called in. Please advise Blanquita Hargrove RN documented in this encounter [facility] 02-08-2025 Telephone encounter Note I sent Thorazine to pharmacy. Please tell him to try it. Thank you [facility] 02-08-2025 Telephone encounter Note calls stating pt continues to have constant hard hiccups. Pt has been taking baclofen TID for 3 days now with no relief. RNCC can hear pt's constant hiccups in the background of this phone call. Pt denies any other concerns at this time. Prefers [facility] in [place] if a script is called in. Please advise Blanquita Hargrove RN [facility] 02-07-2025 Note [facility] 02-07-2025 History of Present illness Narrative [...] Ezra Lizama MD documented in this encounter [facility] 02-07-2025 Note [facility] 02-07-2025 History of Present illness Narrative Jatin is here for radiation therapy with continuous pulse oximetry. Pulse Oxygen Pre tx 69-77 97% Cone beam 72-81 96-97 % Post cb 72-80 95-97% Tx 73-82 94-97% Post tx 76-79 96 Patient tolerated treatment without concerns. Cassia Cantu RN documented in this encounter [facility] 02-06-2025 Telephone encounter Note Pt notified. Blanquita Hargrove RN [facility] Work Phone: 02-06-2025 Miscellaneous Notes Pt notified. Blanquita Hargrove RN I sent baclofen to pharmacy. Thank you Pt calls stating he continues to have hiccups and would like something called into his pharmacy for him. Pt prefers [facility] [place]. Thanks Blanquita Hargrove RN documented in this encounter [facility] 02-06-2025 Telephone encounter Note I sent baclofen to pharmacy. Thank you [facility] 02-06-2025 Telephone encounter Note Pt calls stating he continues to have hiccups and would like something called into his pharmacy for him. Pt prefers [facility] [place]. Thanks Blanquita Hargrove RN [facility] 02-06-2025 Note [facility] 02-06-2025 History of Present illness Narrative [...] was in wheelchair --stand-by assist Treatment Plan: Mexican massage --medium pressure to cervical neck, upper/lower trapezius, mid-lower thoracic and lower back/glutes Care Team contacted: N/A Signature: Madison Gagnon LMT Date: February 06, 2025 Time: 3:09 PM documented in this encounter [facility] 02-06-2025 Note [facility] 02-06-2025 History of Present illness Narrative Pulse monitored during radiation treatment. Pre Treatment Pulse 90 Pulse Ox 99% Cone Beam PUlse 83 Pulse Ox 98% Beam On Pulse 82-88 Pulse Ox 98% After Tx Pulse 87 Pulse Ox 97% Macy Morgan RN documented in this encounter [facility] 02-05-2025 Note [facility] 02-05-2025 History of Present illness Narrative Jatin is here for radiation therapy with continuous pulse oximetry. Pulse SpO2 Pretx 74-98 96-98% Cone beam 78-93 95-97% Post cb 93-102 95-98% Beam on 90-65 95-98% Post tx 90-95 95% Patient tolerated treatment without concerns. Cassia Cantu RN documented in this encounter [facility] 02-05-2025 Note [facility] 02-05-2025 History of Present illness Narrative Lab potassium 3.2 today, secure chat message sent to Dr Perez orders to give 20 meq IV KCL with today's treatment. Treatment nurse and pharmacy aware PRITI Hernandez RN documented in this encounter [facility] [facility]25 Instructions Rasheed Perez MD - 02/05/2025 9:44 AM EDT Treatment this week and next week F/u next week documented in this encounter [facility] 02-05-2025 History of Present illness Narrative Images from the original note were not included. PATIENT NAME: Jatin Koch II CLINIC NO.: [id number] ATTENDING PHYSICIAN: Rasheed Perez MD DATE OF SERVICE: 02/05/[address] Chip Carbajal [address] [place] [address] thank you for referring Jatin Koch II [...] pneumonia - CT C/A/P at [facility] in December 2024 is negative for mets. - C/o right sided chest pain - He will finish antibiotics on Wednesday. 01/02/25: - C/o chills. - Started radiation today - Cycle 1 chemo today. - C/o loss of appetite and weight loss. 01/08/25: - Hospitalized last week with PNA. Treated with Abx. - CT chest at [facility] on 01/02/25 showed T5 lytic lesin. Cannot exclude malignancy - On PO abx - No other complaints. 01/15/25: - C/o worsening chest pain - C/o Shortness of Breath and difficulty swallowing - C/o headache and vision changes. 01/18/25: - Hospitalized at [facility] for pneumonia - C/o chest [...] tablet by mouth daily at bedtime. Ipratropium Exeter (ATROVENT) 21 mcg (0.03 %) nasal spray [...] Range Status 01/24/2025 32.7 % Final Abs Elk Date Value Ref Range Status 01/24/2025 0.65 [...] pneumonia - CT C/A/P at [facility] in December 2024 is negative for mets - Right lung, bronchus intermedius, endobronchial biopsy: Squamous cell carcinoma. PD-L1 TPS 0%. - Due for cycle 1 D1 weekly carbo taxol on 01/02/25. Pt developed infusion reaction after starting Taxol infusion. - Developed sweating, hypotension, lethargy, tachycardia etc. Pt was sent to hospital. - CT chest at [facility] on 01/02/25 showed T5 lytic [...] in [address] Chip [place] [address] thank you for allowing me to participate in [facility], if there are any questions or concerns please do not hesitate to contact me at the number below. I spent a total of 30 minutes on the date of the service which included preparing to see the patient, [id number] patient care, completing clinical documentation, obtaining and/or reviewing separately obtained history, performing a medically appropriate examination, counseling and educating the patient/family/caregiver, ordering medications, tests, or procedures, communicating with other HCPs (not separately reported), independently interpreting results (not separately reported), communicating results to the patient/family/caregiver, and care coordination (not separately reported). Rasheed Perez MD. Hematology/Medical Oncology [facility] [phone] CC: documented in this encounter [facility] 02-05-2025 Note [facility] 02-02-2025 Note [facility] 02-02-2025 History of Present illness Narrative [...] Cassia Cantu RN documented in this encounter [facility] 02-01-2025 Note [facility] 02-01-2025 History of Present illness Narrative Jatin is here for radiation therapy with continuous pulse oximetry. Pulse SpO2 Pretx 93-98 92-98% Cone beam 85-95 95-98% Beam on 92-96 94-99% Post tx 93-96 96% Patient tolerated treatment without concerns. Cassia Cantu RN documented in this encounter [facility] 01-31-2025 Note [facility] 01-31-2025 History of Present illness Narrative [...] Ezra Lizama MD documented in this encounter [facility] 01-31-2025 Note [facility] 01-31-2025 History of Present illness Narrative Jatin is here for radiation therapy with continuous pulse oximetry. Pulse SpO2 Pretx 90-94 97-99% Cone beam 71-103 99% Beam on 88-95 97-98% Post tx 90-94 99% Patient tolerated treatment without concerns. Cassia Cantu RN documented in this encounter [facility] 01-30-2025 Note [facility] 01-30-2025 History of Present illness Narrative [...] Patient was in a wheelchair. Treatment Plan: Mexican massage, effleurage/petrissage, cross fiber friction to upper trapezius, deltoids/triceps/biceps, cervical neck and lower back Care Team contacted: N/A Signature: Madison Gagnon LMT Date: January 30, 2025 Time: 2:52 PM documented in this encounter [facility] 01-30-2025 Note [facility] 01-30-2025 History of Present illness Narrative Jatin is here for radiation therapy with continuous pulse oximetry. Pulse SpO2 Pretx 89-94 99% Cone Beam 92-96 98-99% Beam on tx 88-94 96-97% Post tx 89-92 96-97% Patient tolerated treatment well with concerns. Cassia Cantu RN documented in this encounter [facility] 01-30-2025 Telephone encounter Note Faxed paperwork to [employer] @ [phone]. [facility] 01-30-2025 Miscellaneous Notes Faxed paperwork to [employer]vette @ [phone]. [facility] paperwork for family member has been completed and placed in folder to be signed. Oskar Freeman MA documented in this encounter [facility] 01-30-2025 Telephone encounter Note Jatin was added to the schedule for IVF Lauren B PSS [facility] 01-30-2025 Miscellaneous Notes Jatin was added to the schedule for IVF Lauren B PSS I ordered IV fluids in [place]. Thank you Mrs. Koch called this a.m. stating Jatin would like to get IV fluids today while here. Will you please place orders if you agree? Thanks Cassia Cantu RN documented in this encounter [facility] 01-30-2025 Telephone encounter Note I ordered IV fluids in [place]. Thank you [facility] 01-30-2025 Telephone encounter Note Mrs. Koch called this a.m. stating Jatin would like to get IV fluids today while here. Will you please place orders if you agree? Thanks Cassia Cantu RN [facility] 01-29-2025 History of Present illness Narrative Jatin is here for radiation therapy with continuous pulse oximetry monitoring. Pulse SpO2 Pretx 88-91 92-95% Field 1 89-94 93-95% Post tx 86-93 95% Field 2 89-90 93-97% Post tx 92 95% Patient tolerated treatment well without concerns. Cassia Cantu RN documented in this encounter [facility] 01-29-2025 Note [facility] 01-26-2025 Telephone encounter Note [place] paperwork for family member has been completed and placed in folder to be signed. Oskar Freeman MA [facility] 01-26-2025 Note [facility] 01-26-2025 History of Present illness Narrative Dr. Perez assessed urine dipstick results, no new orders at this time. States Negative for UTI . Berkley Robbins RN documented in this encounter [facility] 01-26-2025 Note HNO ID: [id number] Author: OSKAR FREEMAN MA Service: ? Author Type: Sales Operations Manager Type: Progress Notes Filed: 01/26/2025 13:15 Note Text: Back office UA test performed. Results entered in [employer] and doctor notified. Oskar Freeman MA [facility] 01-26-2025 History of Present illness Narrative Back office UA test performed. Results entered in [employer] and doctor notified. Oskar Freeman MA documented in this encounter [facility] 01-26-2025 History of Present illness Narrative [...] Cassia Cantu RN documented in this encounter [facility] 01-26-2025 Note [facility] 01-26-2025 Telephone encounter Note MICHAEL gautam. Thank you [facility] 01-26-2025 Miscellaneous Notes MICHAEL gautam. Thank [...] Cassia Cantu RN documented in this encounter [facility] 01-26-2025 Telephone encounter Note Jatin is [...] place hydration orders. Thanks Cassia Cantu RN [facility] 01-26-2025 History of Present illness Narrative [...] PATIENT PRESENTS WITH AN IMPLANTABLE OR ATTACHED CUSTOM DESIGNER: No RADIOLOGY DEPARTMENT: General X-ray: Exam(s) Completed: Chest X-Ray PERIPHERAL IV DATA: Not applicable SIGNED BY: RT Melba(R) January 26, 2025 10:53 AM documented in this encounter [facility] 01-26-2025 Note [facility] 01-26-2025 Telephone encounter Note I signed and entered blood culture. Thank you [facility] 01-26-2025 Miscellaneous Notes I signed and [...] Cassia Cantu RN documented in this encounter [facility] 01-25-2025 Telephone encounter Note Mrs. Koch [...] please enter the blood culture orders? Thanks Cassai Cantu RN [facility] 01-25-2025 Note [facility] 01-25-2025 History of Present illness Narrative [...] Macy Morgan RN documented in this encounter [facility] 01-24-2025 Note [facility] 01-24-2025 History of Present illness Narrative [...] Ezra Lizama MD documented in this encounter [facility] 01-24-2025 Note HNO ID: [id number] Author: CHARLOTTE BUTLER RN Service: ? Author Type: Registered Nurse Type: Progress Notes Filed: 01/24/2025 16:46 Note Text: ANC 0.36 Dr Perez aware orders will continue to monitor Charlotte Butler RN [facility] 01-24-2025 History of Present illness Narrative ANC 0.36 Dr Perez aware orders will continue to monitor Charlotte Butler RN documented in this encounter [facility] 01-24-2025 Note [facility] 01-24-2025 History of Present illness Narrative Pulse and Pulse Ox Monitored during radiation treatment Pre Tx pulse 87 pulse ox 98% During Cone Beam Pulse 87 Pulse Ox 96% After Cone Beam Pulse 79 Pulse Ox 95% Beam on Pulse 80-86 pulse ox 95-96% Post Tx Pulse 82 Pulse ox 96% Macy Morgan RN documented in this encounter [facility] 01-24-2025 Telephone encounter Note Pt here for radiation and c/o extreme weakness and some increased Shortness of Breath today. He is very fatigued and per spouse, sleeping a lot. VS obtained and 102/71, Pulse 80 Pulse ox 97% on RA. Pt is interested in IV Fluids today if provider is willing to order. Thank you Macy Morgan RN [facility] 01-24-2025 Miscellaneous Notes Pt here for radiation and c/o extreme weakness and some increased Shortness of Breath today. He is very fatigued and per spouse, sleeping a lot. VS obtained and 102/71, Pulse 80 Pulse ox 97% on RA. Pt is interested in IV Fluids today if provider is willing to order. Thank you Macy Morgan RN documented in this encounter [facility] 01-23-2025 Note [facility] 01-23-2025 History of Present illness Narrative [...] is tolerable Treatment Plan: slow Firm pressure, Mexican massage effleurage/petrissage, cross fiber friction to upper/lower trapezius, cervical neck/occipital ridge, bilateral rhomboids major/minor, lower back Care Team contacted: N/A Signature: Madison Gagnon LMT Date: January 23, 2025 Time: 3:15 PM documented in this encounter [facility] 01-23-2025 Note [facility] 01-23-2025 History of Present illness Narrative Pulse monitored during radiation treatment. Pre Tx Pluse 101 Pulse Ox 96% After Cone beam Pulse 74 Pulse ox 98% Beam on pulse 74-102 & pulse ox 97-98% Post Tx Pluse 93 Pulse Ox 96% Macy Morgan RN documented in this encounter [facility] 01-23-2025 Note [facility] 01-23-2025 History of Present illness Narrative PALLIATIVE MEDICINE CONSULT NOTE SERVICE DATE: January 23, 2025 IDENTIFICATION AND INTRODUCTION: Jatin Koch II is a 64 year old male This visit took place In Ambulatory [facility] Facility Consultation requested by Rasheed Braga [...] pill burden REVIEW OF SYSTEMS: Modified ESAS ([place] Symptom Assessment Scale) Information Provided By: Patient [...] activity was identified. 01/23/2025 by Sheila Freeman, SALVAGE ENGINEER, 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.SENIOR WINDOWS ADMINISTRATOR Assessment & Plan (Z51.5) Palliative care by specialist (primary encounter diagnosis) Palliative Care by specialist - Introduced philosophy of palliative medicine - Discussed services offered by [facility] - Provided support to family (C34.31) [...] tablet po daily (J34.89) Rhinorrhea - Ipratropium Exeter (ATROVENT) 21 mcg (0.03 %) nasal spray BID - stop benadryl Some elements copied from Oncology note on 01/18/25, the elements have been updated and all reflect current decision making from today, 01/23/2025. I spent a total of 45 minutes on the date of the service which included preparing to see the patient, [id number] patient care, completing clinical documentation, obtaining and/or reviewing separately obtained history, performing a medically appropriate examination, counseling and educating the patient/family/caregiver, ordering medications, tests, or procedures, communicating with other HCPs (not separately reported), independently interpreting results (not separately reported), communicating results to the patient/family/caregiver, and care coordination (not separately reported). Next Visit: 3 Months in-person Palliative Medicine Nurse to do telephonic follow-up: Yes President Ceo & Founder Services: None at this time Referral to Stock Sorter: No, not at this time Sheila Freeman NP, [email or web address] January 23, 2025 11:03 AM This note may have been partially generated using the [employer] voice recognition system. While every effort was made to correct voice recognition errors, kindly be aware that some errors may occasionally occur. documented in this encounter [facility] 01-23-2025 Telephone encounter Note Palliative Medicine Care Coordination New Patient Note Patient identified by name and date of : Yes Spoke with Cor[place]on message Nurse introduced self and role of Customs Opener Verifier Packer in Palliative Medicine. Reviewed contact sheet information and on-call process. Nurse educated patient on medication refill process. Nurse encouraged patient to call with any questions/concerns/symptom related issues. Ricardo Alva RN [facility] 01-23-2025 Miscellaneous Notes Palliative Medicine Care Coordination New Patient Note Patient identified by name and date of : Yes Spoke with mychart message Nurse introduced self and role of Customs Opener Verifier Packer in Palliative Medicine. Reviewed contact sheet information and on-call process. Nurse educated patient on medication refill process. Nurse encouraged patient to call with any questions/concerns/symptom related issues. Ricardo Alva RN documented in this encounter [facility] 01-23-2025 Instructions Sheila Freeman APRN.SENIOR WINDOWS ADMINISTRATOR - 01/23/2025 8:52 AM EDT Sheila Freeman CNP Department of Palliative and Supportive Care Palliative Care - Specialty services in symptom management and support For questions or prescription refills, call: [phone] Wednesday - Wednesday 9AM-5PM MARIELLA Estrella, RN - Customs Opener Verifier Packer Please call 3-5 days in advance for medication refills Evenings, Weekends, Holidays: [phone] (ask for palliative medicine on-call provider) For appointments, cancellations or reschedule, call: [phone] documented in this encounter [facility] 01-22-2025 Note [facility] 01-22-2025 History of Present illness Narrative Pulse and Pulse Ox monitored for radiation treatment. Pre Tx: Pulse 107 Pulse Ox 96% RA During Cone Beam : Pulse 72 Pulse Ox 100 Beam on: Pulse 95-100, Pulse Ox 94-98% Post Tx Pulse 95 Pulse Ox 96%. Macy Morgan RN documented in this encounter [facility] 01-19-2025 Note [facility] 01-18-2025 Note [facility] 01-18-2025 History of Present illness Narrative [...] Ezra Lizama MD documented in this encounter [facility] 01-18-2025 Note [facility] 01-18-2025 Note [facility] 01-17-2025 Telephone encounter Note Records from patients [facility] ER visit have been scanned in. Charlotte Jackson [facility] 01-17-2025 Miscellaneous Notes Records from patients [facility] ER visit have been scanned in. Charlotte Jackson [place] fine. Thank you FYI: Message received from pt's spouse that pt was diagnosed w/ pneumonia. Will be admitted to [facility] for IV antibiotics. Jimmy: Please scan pt's hospital records. Thanks! Ileana Bear, RN documented in this encounter [facility] 01-15-2025 Telephone encounter Note [place] fine. Thank you [facility] 01-15-2025 Telephone encounter Note FYI: Message received from pt's spouse that pt was diagnosed w/ pneumonia. Will be admitted to [facility] for IV antibiotics. Jimmy: Please scan pt's hospital records. Thanks! Ileana Bear RN [facility] Work Phone: 01-15-2025 Instructions Rasheed Perez MD - 01/15/2025 11:49 AM EDT Please schedule an appt after the hospital discharge. documented in this encounter [facility] 01-15-2025 Radiology Diagnostic study note [facility] [place] [address] CT Scan Report Signed Patient: Jatin Koch II MR#: [id number] : 1960 Acct:[id number] Age/Sex: 64 / M ADM Date: 5 Loc: ER Room: Type: [facility] ER Attending Dr: Copies to: Angelica [...] II, MD 01/15/25 1124 Signed By: 01/15/25 1136 [facility] Work Phone: 01-15-2025 History of Present illness Narrative Images from the original note were not included. PATIENT NAME: Jatin Koch II CLINIC NO.: [id number] ATTENDING PHYSICIAN: Rasheed Perez MD DATE OF SERVICE: 01/15/[address] Chip Carbajal [address] [place] [address] thank you for referring Jatin Koch II [...] pneumonia - CT C/A/P at [facility] in December 2024 is negative for mets. - C/o right sided chest pain - He will finish antibiotics on Wednesday. 01/02/25: - C/o chills. - Started radiation today - Cycle 1 chemo today. - C/o loss of appetite and weight loss. 01/08/25: - Hospitalized last week with PNA. Treated with Abx. - CT chest at [facility] on 01/02/25 showed T5 lytic [...] Range Status 01/08/2025 4.7 % Final Abs Elk Date Value Ref Range Status 01/08/2025 0.74 [...] pneumonia - CT C/A/P at [facility] in December 2024 is negative for mets - Right lung, bronchus intermedius, endobronchial biopsy: Squamous cell carcinoma. PD-L1 TPS 0%. - Due for cycle 1 D1 weekly carbo taxol on 01/02/25. Pt developed infusion reaction after starting Taxol infusion. - Developed sweating, hypotension, lethargy, tachycardia etc. Pt was sent to hospital. - CT chest at [facility] on 01/02/25 showed T5 lytic [...] [address] Chip Carbajal [address] [facility] [address] thank you for allowing me to participate in [facility], if there are any questions or concerns please do not hesitate to contact me at the number below. I spent a total of 30 minutes on the date of the service which included preparing to see the patient, [id number] patient care, completing clinical documentation, obtaining and/or reviewing separately obtained history, performing a medically appropriate examination, counseling and educating the patient/family/caregiver, ordering medications, tests, or procedures, communicating with other HCPs (not separately reported), independently interpreting results (not separately reported), communicating results to the patient/family/caregiver, and care coordination (not separately reported). Rasheed Perez MD. Hematology/Medical Oncology [facility] [place] [phone] CC: documented in this encounter [facility] 01-15-2025 Note [facility] 01-12-2025 Note [facility] 01-12-2025 History of Present illness Narrative Jatin is here for radiation therapy with continuous pulse oximetry. Pulse SpO2 Pre tx 99-100 97 Tx 76-102 97-98 Post tx 97 97 Patient tolerated treatment well without concerns. Cassia Cantu RN documented in this encounter [facility] 01-11-2025 Telephone encounter Note CYCLE 1/DAY 1 POST TREATMENT CALL Today's date: January 11, 2025 Treatment Regimen: cisplatin, ENGINE MECHANIC-16 C1D1 Date: 01/08/25 Called patient to follow-up [...] after hours number protocol. Blanquita Hargrove RN [facility] Work Phone: 01-11-2025 Miscellaneous Notes CYCLE 1/DAY 1 POST TREATMENT CALL Today's date: January 11, 2025 Treatment Regimen: cisplatin, ENGINE MECHANIC-16 C1D1 Date: 01/08/25 Called patient to follow-up [...] Blanquita Hargrove RN documented in this encounter [facility] 01-11-2025 Note [facility] 01-11-2025 History of Present illness Narrative [...] Cassia Cantu RN documented in this encounter [facility] 01-10-2025 Note [facility] 01-10-2025 History of Present illness Narrative [...] Ezra Lizama MD documented in this encounter [facility] 01-10-2025 Note HNO ID: [id number] Author: MACY MORGAN RN Service: ? Author Type: Registered Nurse Type: Progress Notes Filed: 01/10/2025 12:39 Note Text: Pulse and Pulse ox monitored during radiation treatment. Macy Morgan RN [facility] 01-10-2025 History of Present illness Narrative Pulse and Pulse ox monitored during radiation treatment. Macy Morgan RN documented in this encounter [facility] 01-09-2025 Note [facility] 01-09-2025 History of Present illness Narrative Jatin is here for radiation therapy with continuous pulse oximetry during treatment. Pulse SpO2 Pretx 79-86 97% Tx 78-81 94-95% Post tx 77 95% Patient tolerated treatment without concerns. Cassia Cantu RN documented in this encounter [facility] 01-09-2025 Telephone encounter Note Patient previously [...] tomorrow per Dr. Perez and Lianna [place], [facility] discussion. Allergies updated to include polysorbate 80 and chremophor. [facility] 01-09-2025 Miscellaneous Notes Patient previously had [...] tomorrow per Dr. Perez and Lianna [place], [facility] discussion. Allergies updated to include polysorbate 80 and chremophor. documented in this encounter [facility] 01-08-2025 Note [facility] 01-08-2025 History of Present illness Narrative Jatin is here for radiation with continuous pulse oximetry during treatment. Pulse SpO2 Pretx 81-91 98% During 85-89 98% Post tx 83-87 98% Patient c/o lightheadedness when sitting up post treatment. BP 96/64. Patient assisted to dressing after he said lightheadedness improved. Patient denies further needs. Cassia Cantu RN documented in this encounter [facility] 01-08-2025 Note HNO ID: [id number] Author: Oswaldo GHOSH MD Service: ? Author Type: Physician Type: Progress Notes Filed: 01/08/2025 16:27 Note Text: Films reviewed [facility] 01-08-2025 History of Present illness Narrative Films reviewed documented in this encounter [facility] 01-08-2025 Note [facility] 01-08-2025 History of Present illness Narrative [...] tomorrow per Dr. Perez and Lianna Lucas, [facility] discussion. Pt reaction to Etoposide, see tx [...] Bee Yamile, RN documented in this encounter [facility] 01-08-2025 Note [facility] 01-08-2025 History of Present illness Narrative [...] assess for AD's. documented in this encounter [facility] 01-08-2025 Note [facility] 01-08-2025 Note Addended by: RASHEED SEGUNDO on: 01/08/2025 01:02 PM Modules accepted: Orders [facility] 01-08-2025 Miscellaneous Notes Addended by: RASHEED PEREZ on: 01/08/2025 01:02 PM Modules accepted: Orders documented in this encounter [facility] 01-08-2025 Miscellaneous Notes Pts calls office today regarding episode of lower BP reading at [facility]. See previous chart notes from 12/28/24 for further details and msg thread documented in this encounter [facility] 01-08-2025 Telephone encounter Note Pts calls office today regarding episode of lower BP reading at [facility]. See previous chart notes from 12/28/24 for further details and msg thread [facility] 01-08-2025 Note [facility] 01-08-2025 Note [facility] 01-08-2025 Instructions Rasheed Perez MD - 01/08/2025 10:08 AM EDT Treatment this week and next week F/u in 1 week documented in this encounter [facility] 01-08-2025 Note [facility] 01-08-2025 History of Present illness Narrative ONCOLOGY PATIENT EDUCATION NOTE TOPIC: Chemotherapy, Medications: Cisplatin, ENGINE MECHANIC-16 with radiation patient here today for education [...] Blanquita Hargrove RN documented in this encounter [facility] 01-08-2025 Note [facility] 01-08-2025 History of Present illness Narrative Images from the original note were not included. PATIENT NAME: Jatin Koch [facility] NO.: [id number] ATTENDING PHYSICIAN: Rasheed Perez MD DATE OF SERVICE: 01/08/[address] Chip Carbajal [address] [place] [address] thank you for referring Jatin Reyesmaryjane ANSARI [...] pneumonia - CT C/A/P at [facility] in December 2024 is negative for mets. - C/o right sided chest pain - He will finish antibiotics on Wednesday. 01/02/25: - C/o chills. - Started radiation today - Cycle 1 chemo today. - C/o loss of appetite and weight loss. 01/08/25: - Hospitalized last week with PNA. Treated with Abx. - CT chest at [facility] on 01/02/25 showed T5 lytic [...] Range Status 01/08/2025 4.7 % Final Abs Elk Date Value Ref Range Status 01/08/2025 0.74 [...] pneumonia - CT C/A/P at [facility] in December 2024 is negative for [...] - Continue radiation - CT chest at [facility] on 01/02/25 showed T5 lytic lesion. Cannot exclude malignancy. Monitor for now. - Blood work today is unremarkable - All his questions answered in detail. - F/u in [address] Chip Carbajal [address] [place] [address] thank you for allowing me to participate in Jatin Koch II care, if there are any questions or concerns please do not hesitate to contact me at the number below. I spent a total of 30 minutes on the date of the service which included preparing to see the patient, [id number] patient care, completing clinical documentation, obtaining and/or reviewing separately obtained history, performing a medically appropriate examination, counseling and educating the patient/family/caregiver, ordering medications, tests, or procedures, communicating with other HCPs (not separately reported), independently interpreting results (not separately reported), communicating results to the patient/family/caregiver, and care coordination (not separately reported). Rasheed Perez MD. Hematology/Medical Oncology [place] [phone] CC: documented in this encounter [facility] 01-08-2025 Telephone encounter Note Voicemail received from pt's stating she has notification on her phone that pt has an appointment for today as well as tomorrow. asking on message if pt needs to come in today or not. Call placed to pt's 3 times and detailed messages left regarding pt's appointments today and tomorrow. Blanquita Hargrove RN [facility] Work Phone: 01-08-2025 Miscellaneous Notes Voicemail received from pt's stating she has notification on her phone that pt has an appointment for today as well as tomorrow. asking on message if pt needs to come in today or not. Call placed to pt's 3 times and detailed messages left regarding pt's appointments today and tomorrow. Blanquita Hargrove RN documented in this encounter [facility] 01-05-2025 Progress note Note Date/Time January 05, 2025 11:46am [facility] [address] [place] [address] Hospitalist Progress Note Signed Patient: Jatin Koch II MR#: [id number] : 1960 Acct:[id number] Age/Sex: 64 / M Adm Date: 5 Loc: 4 Room: 3Y0283-6 Type: ADM IN Attending Dr: Norah Whittaker [...] Reaction (Verified 01/02/25 13:47) Unable to urinate [place] pollen Allergy (Uncoded 08/11/18 15:46) Eyes swell [...] 1. Pneumonia, suspect bacterial Recently hospitalized at [facility], discharged with Augmentin and doxycycline Unable [...] by Norah Whittaker MD> 01/05/25 1146 [facility] Work Phone: [phone]) 733-151607-25-2025 Progress note Author Norah Whittaker [facility] Note Date/Time January 05, 2025 11:4 4am [facility] [address] [place] [address] Hospitalist Progress Note Signed Patient: Jatin Koch II MR#: [id number] : 1960 Acct:[id number] Age/Sex: 64 / M Adm Date: 5 Loc: Room: [address] [place] [address] Type: ADM IN Attending Dr: Norah Whittaker [...] Reaction (Verified 01/02/25 13:47) Unable to urinate [place] pollen Allergy (Uncoded 08/11/18 15:46) Eyes swell [...] 1. Pneumonia, suspect bacterial Recently hospitalized at [facility], discharged with Augmentin and doxycycline Unable [...] Norah Whittaker MD> 01/05/25 1144 [facility] Work Phone: 1(229) 478-495407-25-2025 Telephone encounter Note* Telephone Encounter - Carolina Perdue - 01/05/2025 1:42 PM EDT Patient's appointment to start for Wednesday has been adjusted and day 2-5 added around his XRT times.Unable to assign referral possibly because the start date is after the scheduled date on infusion? Nurse Ileana @ [facility] notified of new time arrival for Wednesday. Also added education for Blanquita on Wednesday as well. Carolina Perdue [facility]07-25-2025 Miscellaneous Notes* Telephone Encounter - Carolina Perdue - 01/05/2025 1:42 PM EDT Patient's appointment to start for Wednesday has been adjusted and day 2-5 added around his XRT times.Unable to assign referral possibly because the start date is after the scheduled date on infusion? Nurse Ileana @ [facility] notified of new time arrival [...] for pt to be discharged tomorrow from [facility]. Pt is scheduled for radiation [...] tomorrow. Blanquita Hargrove RN [facility] Telephone encounter Note * Telephone Encounter - Eloy Lucas RPh - 01/05/2025 1:28 PM EDT Added Magnesium 1g before and after. Please review. Thanks, Eloy Lucas RPh [facility]07-25-2025 Telephone encounter Note* Telephone Encounter - Rasheed Perez MD - 01/05/2025 1:22 PM EDT Can we add magnesium also to cisplatin infusion ? Thank you [facility]07-25-2025 Telephone encounter Note* Telephone Encounter - Eloy Lucas RPh - 01/05/2025 1:[address] Perez: Plan entered - please review for accuracy. We would have to start this regimen jefferson Wednesday however, since the etop is daily x5. PSS: please attach new referral and schedule 4 hour tx d1 then 2 hour tx d2-5. Thanks, Eloy Lucas RP [facility]07-25-2025 Telephone encounter Note* Telephone Encounter - Rasheed Perez MD - 01/05/2025 12:35 PM EDT Can we do cisplatin 50mg/m2 day 1,8,29,36 and etoposide 50mg/m2 day 1-5 and 29- 33 ? Thank you [facility]07-25-2025 Telephone encounter Note* Telephone Encounter - Blanquita Hargrove RN - 01/05/2025 12:27 PM EDT Tentative plan is for pt to be discharged tomorrow from [facility]. Pt is scheduled for radiation new start on Wednesday at 1130. Pt did not receive his chemo treatment on Wednesday due to an allergic reaction to taxol 9 mg in. What will the plan be for concurrent chemotherapy moving forward? Should he start chemo on Wednesday when he is here for radiation? Please advise Blanquita Hargrove RN [facility] Work Phone: 1(285) 519-542807-25-2025 Telephone encounter Note* Telephone Encounter - Blanquita Hargrove RN - 01/05/2025 12:22 PM EDT CYCLE 1/DAY 1 POST TREATMENT CALL Today's date: January 05, 2025 Treatment Regimen: taxol, carbo C1D1 Date: 01/02/25 Pt received 9 mg of dose of taxol and had an allergic reaction. Pt was taken by ambulance from our office to [facility]. Pt did not receive remaining dose of taxol or carboplatin. [facility] Blanquita Hargrove RN [facility] Work Phone: [phone]) [phone] Miscellaneous Notes* Telephone Encounter - Blanquita Hargrove RN - 01/05/2025 12:22 PM EDT CYCLE 1/DAY 1 POST TREATMENT CALL Today's date: January 05, 2025 Treatment Regimen: taxol, carbo C1D1 Date: 01/02/25 Pt received 9 mg of dose of taxol and had an allergic reaction. Pt was taken by ambulance from our office to [facility]. Pt did not receive remaining dose of taxol or carboplatin. [facility] Blanquita Hargrove RN [facility] Telephone encounter Note * Telephone Encounter [...] be discharged home tomorrow. Blanquita Hargrove RN [facility]07-25-2025 [place] [address] Hospitalist Progress Note Signed Patient: Jatin Koch II MR#: [id number] : 1960 Acct:[id number] Age/Sex: 64 / M Adm Date: 5 Loc: Room: 7M7266-9 Type: ADM IN Attending Dr: Norah Whittaker [...] Reaction (Verified 01/02/25 13:47) Unable to urinate [place] pollen Allergy (Uncoded 08/11/18 15:46) Eyes swell [...] 1. Pneumonia, suspect bacterial Recently hospitalized at [facility], discharged with Augmentin and doxycycline Unable [...] MD 01/05/25 1144 Signed By: 01/05/25 1146 [facility]07-25-2025 [place] [address] Hospitalist Progress Note Signed Patient: Jatin Koch II MR#: [id number] : 1960 Acct:[id number] Age/Sex: 64 / M Adm Date: 5 Loc: Room: [address] [place] [address] Type: ADM IN Attending Dr: Norah Whittaker [...] Reaction (Verified 01/02/25 13:47) Unable to urinate [place] pollen Allergy (Uncoded 08/11/18 15:46) Eyes swell [...] 1. Pneumonia, suspect bacterial Recently hospitalized at [facility], discharged with Augmentin and doxycycline Unable [...] MD 01/04/25 1416 Signed By: 01/05/25 1144 [facility]07-24-2025 Telephone encounter Note* Telephone Encounter - Macy Morgan RN - 01/04/2025 11:16 AM EDT was notified of plan. Macy Morgan RN [facility]07-24-2025 Miscellaneous Notes* Telephone Encounter - Macy [...] advise. Macy Morgan RN [facility] Telephone encounter Note * Telephone Encounter - Jazlyn Hyatt RT(R) - 01/04/2025 10:34 AM EDT 1130 OTV for new start on 01/08/25 [facility] Work Phone: [phone]) [phone] Telephone encounter Note* Telephone Encounter - Macy Morgan RN - 01/04/2025 10:18 AM EDT Can you please give me time for Wednesday and I will notify pts ? Thank you! Macy Morgan RN [facility]07-24-2025 Telephone encounter Note* Telephone Encounter - Jazlyn Hyatt RT(R) - 01/04/2025 10:10 AM EDT If pt is d/c today we can arrange a new start time for Wednesday Thanks RT Yonny(R)(T) [facility]07-24-2025 Telephone encounter Note* Telephone Encounter - Macy Morgan RN - 01/04/2025 9:53 AM EDT Pts spouse called in. They are hopeful that pt will be discharged later today. She is wondering when pt should come in to start radiation? Dr Ghosh- please advise. Macy Morgan, RN [facility]07-23-2025 Telephone encounter Note* Telephone Encounter - Victoria Pack - 01/03/2025 8:13 AM EDT Patient is admitted on 4P at [facility]. He was sent from here by [employer] yesterday. Records scanned. [facility]07-23-2025 Miscellaneous Notes* Telephone Encounter - Ivelisse Clements Victoria Fowler - 01/03/2025 8:13 AM EDT Patient is admitted on 4P at [facility]. He was sent from here by squad yesterday. Records scanned. documented [facility] Evaluation note* Diagnosis Onset Date Resolution Status Admit Date History of lung cancer acute Ju ly 2024 5:55pm Pneumonia acute January 02 5:55pm Syncope acute January 02 5:55pm [facility] Work Phone: 1(857) 413-414607-22-2025 Evaluation note* Diagnosis Onset Date Resolution Status Admit Date History of lung cancer resolved Ju 2024 5:55pm Pneumonia resolved January 02 5:55pm Syncope resolved January 02 5:55pm Lung cancer acute January 15, 025 12:25pm Pneumonia acute January 15 12:25pm [facility] Work Phone: [phone]) [phone] Evaluation note* Diagnosis Onset Date Resolution Status Admit Date History of lung cancer resolved Ju ly 2024 5:55pm Pneumonia resolved January 02 5:55pm Syncope resolved January 02 5:55pm Anxiety acute January 15 12:25pm Cancer associated pain acute Au 2024 12:25pm Lung abscess acute January 15, 2025 12:25pm Lung cancer acute January 15, 2 025 12:25pm Pneumonia acute January 15 12:25pm [facility] Work Phone: 1(217) 571-329107-22-2025 [facility] [place] [address] [place] [address] CT Scan Report Signed Patient: Jatin Koch II MR#: [id number] : 1960 Acct:[id number] Age/Sex: 64 / M ADM Date: 5 Loc: Room: [address] [place] [address] Type: ADM IN Attending Dr: Norah Whittaker [...] Mccann M.D. 01/02/2025 7:42 PM Dictation Location: [place] [address] Transcribed By: [facility] 01/02/251941 Dictated By: Kirk Mccann DO 01/02/251935 Signed By: 01/02/251941 [facility]07-22-2025 History and physical note Author Norah Whittaker [facility] Note Date/Time January 02, 2025 5:39 pm [facility] [address] [place] [address] Hospitalist H&P Signed Patient: Jatin Koch II MR#: [id number] : 1960 Acct:[id number] Age/Sex: 64 / M Adm Date: 5 Loc: ER Room: Type: [facility] ER Attending Dr: Copies to: MINERVA Dykes CNP, MD~ HPI DATE OF EXAMINATION: 01/02/25 CHIEF COMPLAINT: Dizziness HISTORY OF PRESENT ILLNESS: 64 years old male who was diagnosed with a right lower lobe lung cancer, followswith [facility], presenting with worsening of shortness of [...] 10 days ago he was admitted at [facility] where he was treated for pneumonia [...] of consolidation with atelectasisor small possible effusions COUNTS INCLUDE 234 BEDS AT [facility] Medical History (Updated 01/02/25 @ 17:38 by [...] List clean-up per request of Phys. EHR [facility] History History of carpal tunnel release of both wrists Problem List clean-up per request of Phys. EHR Cmte History of cystoscopy Problem List clean-up per request of Phys. EHR [facility] Family History Sister Kidney disease Father Hypertension Mother Arthritis Social History Smoking Status: Former smoker Tobacco Type: cigarettes Substance Use Type: None Social History Comments: son lives with them Meds Medications and Allergies Allergies codeine Allergy (Verified 01/02/25 13:47) Chills sulfamethoxazole (From Bactrim) Adverse Reaction (Verified 01/02/25 13:47) Unable to urinate trimethoprim (From Bactrim) Adverse Reaction (Verified 01/02/25 13:47) Unable to urinate [place] pollen Allergy (Uncoded 08/11/18 15:46) Eyes swell [...] % (Auto) 2.3 % (.) 01/02/25 14:20 Elk % (Auto) 2.4 % (.) 01/02/25 14:20 Eos % (Auto) 1.0 % (.) 01/02/25 14:20 Baso % (Auto) 0.4 % (.) 01/02/25 14:20 Nucleat RBC Rel Count 0.0 /100 WBC (0-0.5) 01/02/25 14:20 Neut # (Auto) 14.5 x10E3/uL (1.8-7.7) H 01/02/25 14:20 Lymph # (Auto) 0.4 x10E3/uL (1.00-4.8) L 01/02/25 14:20 Elk # (Auto) 0.4 x10E3/uL (0.0-0.8) 01/02/25 14:20 [...] 1. Pneumonia, suspect bacterial Recently hospitalized at [facility], discharged with Augmentin and doxycycline For [...] <Electronically signed by Norah Whittaker MD> 01/02/25 1733 [facility] Work Phone: 1(639) 784-245107-22-2025 [place] [address] Hospitalist H&P Signed Patient: Jatin Koch II MR#: [id number] : 1960 Acct:[id number] Age/Sex: 64 / M Adm Date: 5 Loc: ER Room: Type: [facility] ER Attending Dr: Copies to: MINERVA Dykes SENIOR WINDOWS ADMINISTRATOR Norah Whtitaker MD~ HPI DATE OF EXAMINATION: 01/02/25 CHIEF COMPLAINT: Dizziness HISTORY OF PRESENT ILLNESS: 64 years old male who was diagnosed with a right lower lobe lung cancer, followswith [facility], presenting with worsening of shortness of [...] 10 days ago he was admitted at [facility] where he was treated for pneumonia [...] of consolidation with atelectasisor small possible effusions COUNTS INCLUDE 234 BEDS AT [facility] Medical History (Updated 01/02/25 @ 17:38 by [...] Reaction (Verified 01/02/25 13:47) Unable to urinate [place] pollen Allergy (Uncoded 08/11/18 15:46) Eyes swell [...] % (Auto) 2.3 % (.) 01/02/25 14:20 Elk % (Auto) 2.4 % (.) 01/02/25 14:20 Eos % (Auto) 1.0 % (.) 01/02/25 14:20 Baso % (Auto) 0.4 % (.) 01/02/25 14:20 Nucleat RBC Rel Count 0.0 /100 WBC (0-0.5) 01/02/25 14:20 Neut # (Auto) 14.5 x10E3/uL (1.8-7.7) H 01/02/25 14:20 Lymph # (Auto) 0.4 x10E3/uL (1.00-4.8) L 01/02/25 14:20 Elk # (Auto) 0.4 x10E3/uL (0.0-0.8) 01/02/25 14:20 [...] 1. Pneumonia, suspect bacterial Recently hospitalized at [facility], discharged with Augmentin and doxycycline For [...] MD 01/02/25 1729 Signed By: 01/02/25 1739 [facility]07-22-2025 Radiology Diagnostic study note [facility] Main [place] [address] [place] [address] CT Scan Report Signed Patient: Jatin Koch II MR#: [id number] : 1960 Acct:[id number] Age/Sex: 64 / M ADM Date: 5 Loc: ER Room: Type: [facility] ER Attending Dr: Copies to: Dominic [...] Mccann M.D. 01/02/2025 3:04 PM Dictation Location: [place] [address] Transcribed By: [facility] 01/02/25 1504 Dictated By: Kirk Mccann DO 01/02/25 1503 Signed By: 01/02/25 1504 [facility]07-22-2025 [facility] History of Present illness Narrative* [...] SpO2 increased to 93%. and Mic Salcedo, SALVAGE ENGINEER arrive chairside after Dr. LUNSFORD called. New [...] unlabored on O2 viaNC; care transferred to [facility] and pt leaves for [facility] at this time. Susanne Francis, RN [facility] Instructions* Patient Instructions* Rasheed Perez MD - 01/02/2025 11:11 AM EDT Treatment today and next week Refer to palliative care F/u in 1 week documented [facility]2025 [facility] History of Present illness Narrative* Rasheed Perez MD - 01/02/2025 10:58 AM EDT Images from the original note were not included. PATIENT NAME: Jatin Koch II CLINIC NO.: [id number] ATTENDING PHYSICIAN: Rasheed Perez MD DATE OF SERVICE: 01/02/[address] Chip Carbajal [address] [place] [address] thank you for referring Jatin Koch II [...] pneumonia - CT C/A/P at [facility] in December 2024 is negative for [...] Range Status 01/02/2025 4.6 % Final Abs Elk Date Value Ref Range Status 01/02/2025 0.63 [...] pneumonia - CT C/A/P at [facility] in December 2024 is negative for [...] discharge from hospital. Dear Dr. Chip Carbajal [address] [place] [address] thank you for allowing me to participate in Jatin Koch II care, if there are any questions or concerns please do not hesitate to contact me at the number below. I spent a total of 30 minutes on the date of the service which included preparing to see the patient, [id number] patient care, completing clinical documentation, obtaining and/or reviewing separately obtained history, performing a medically appropriate examination, counseling and educating the pat ient/family/caregiver, ordering medications, tests, or procedures, communicating with other HCPs (not separately reported), independently interpreting results (not separately reported), communicatingresults to the patient/family/caregiver, and care coordination (not separately reported). Rasheed Perez MD. Hematology/Medical Oncology [place] [phone] CC: [facility] History of Present illness Narrative* [place] [...] big smile on his face. Treatment Plan: Mexican massage, medium pressure, effleurage/petrissage, cross fiber friction, trigger point therapy to upper trapezius and mid-lower back. Myofascial release to cervical neck Care Team contacted: N/A Signature: Madison Gagnon LMT Date: December 26, 2024 Time: 3:13 PM documented in this encounterBl[facility] Telephone encounter Note * Telephone Encounter - Ileana Bear RN - 12/26/2024 2:41 PM EDT Pt notified and verbalizes understanding. Ileana Bear RN [facility] Work Phone: [phone]) [phone] Miscellaneous Notes* Telephone Encounter - Ileana Bear RN - 12/26/2024 2:41 PM EDT Pt notified and verbalizes understanding. Ileana Bear RN * Telephone Encounter - Rasheed Perez MD - 12/26/2024 2:36 PM EDT I sent potassium tablets to pharmacy. Please tell him to take it. Thanks documented in this encounterBlanchard Valley [facility] System [facility]07-[facility] Telephone encounter Note * Telephone Encounter - Rasheed Perez MD - 12/26/2024 2:36 PM EDT I sent potassium tablets to pharmacy. Please tell him to take it. Thanks [facility]07-15-2025 Instructions* Patient Instructions* Rasheed Perez MD - 12/26/2024 2:07 PM EDT Schedule chemo next week F/u with rad onc this week. Pt already had simulation done. Can we start radiation next week? Start chemo on the start day of radiation Ordered physical therapy consult Ordered handicap parking F/u next week. documented in this encounterBlanchard Valley Health System [facility]07-15-2025 NoteTrihealth [facility]07-15-2025 History of Present illness Narrative* Rasheed Perez MD - 12/26/2024 1:40 PM EDT Images from the original note were not included. PATIENT NAME: Jatin Koch II CLINIC NO.: [id number] ATTENDING PHYSICIAN: Rasheed Perez MD DATE OF SERVICE: 12/26/[address] Chip [address] [address] thank you for referring Jatin Koch II [...] pneumonia - CT C/A/P at [facility] in December 2024 is negative for [...] Range Status 12/26/2024 4.9 % Final Abs Elk Date Value Ref Range Status 12/26/2024 0.84 [...] pneumonia - CT C/A/P at [facility] in December 2024 is negative for mets - Scheduled for bronchoscopy on 11/20/24. Right lung, bronchus intermedius, endobronchial biopsy: Squamous cell carcinoma. PD-L1 TPS 0%. - Pt already had radiation simulation done - We will start weekly carbo taxol with radiation next week - All his questions answered in detail. - F/u in [address] Chip Carbajal [address] [facility] [address] thank you for allowing me to participate in [facility], if there are any questions or concerns please do not hesitate to contact me at the number below. I spent a total of 20 minutes on the date of the service which included preparing to see the patient, [id number] patient care, completing clinical documentation, obtaining and/or reviewing separately obtained history, performing a medically appropriate examination, counseling and educating the pat ient/family/caregiver, ordering medications, tests, or procedures, communicating with other HCPs (not separately reported), independently interpreting results (not separately reported), communicatingresults to the patient/family/caregiver, and care coordination (not separately reported). Rasheed Perez MD. Hematology/Medical Oncology [facility] [place] [phone] CC: documented in this encounterBlanchard Valley Health System [facility]07-14-2025 Miscellaneous Notes* Telephone Encounter - Xiomara Wright RN - 12/25/2024 8:56 AM EDT Images from the original note were not included. Patient with [employer] duel chamber pacemake placed 11/09/24 with JZL. [...] and advise, thank you Presenting EGM As- Senior Gamemaster events. Atrial burden <1%. * Telephone Encounter [...] note were not included. Patient was in [facility] at time of events for a [...] this am stating they are [facility] for tx and managementof pt's cancer [...] more problems than not. documented in this encounterSt. [facility]25 Telephone encounter Note* Telephone Encounter - Xiomara Wright RN - 12/25/2024 8:56 AM EDT Images from the original note were not included. Patient with [employer] duel chamber pacemake placed 11/09/24 with JZL. [...] and advise, thank you Presenting EGM As- Senior Gamemaster events. Atrial burden <1%. [facility]07-14-2025 Telephone encounter Note* Telephone Encounter - Robert Veloz MD - 12/25/2024 8:56 AM EDT Reviewed, CHADS2 Vasc essentially 1, burden of atrial fibrillation low in in the setting of radiation therapy. Okay to continue monitoring for now off of anticoagulation. [facility] Work Phone: [phone] Telephone encounter Note* Telephone Encounter - Xiomara Wright RN - 12/25/2024 8:56 AM EDT Images from the original note were not included. Patient was in [facility] at time of events for a [...] in office bp was 110/62 HR 90 [employer] [id number] Telephone encounter Note* Telephone Encounter - Robert Veloz MD - 12/25/2024 8:56 AM EDT Would leave him at Toprol 25 mg q.day, his prior dosing. [employer] [id number] Telephone encounter Note* Telephone Encounter - Xiomara Wright RN - 12/25/2024 8:56 AM EDT LM for patient with JZL response. [employer] [id number] Telephone encounter Note* Telephone Encounter - Josseline [...] ok to continue to monitor. Thank you. [facility]07-14-2025 Telephone encounter Note* Telephone Encounter - Robert Veloz MD - 12/25/2024 8:56 AM EDT Okay to continue monitoring [facility]07-14-2025 Telephone encounter Note* Telephone Encounter - Sheila Betancourt RN - 12/25/2024 8:56 AM EDT Pt's calls office this am stating they are [facility] for tx and managementof pt's cancer [...] please review and advise for SANYA off. [facility]07-14-2025 Telephone encounter Note* Telephone Encounter - Crystal Morin RN - 12/25/2024 8:56 AM EDT No new alerts/detections from home monitor since 12/28/24. LVM with pt to send transmission through home monitor to assess rhythm/device once home. Per prior note, pt was at . Pt is scheduled 01/10/25 for weekly home monitor transmission while receiving radiation. [facility]07-14-2025 Telephone encounter Note* Telephone Encounter - Lani [...] metoprolol might cause more problems than not. [facility] [employer] Work Phone: [phone] Telephone encounter Note* Telephone Encounter - Ileana Bear RN - 12/22/2024 2:06 PM EDT DISCHARGE CALL BACK Today's date: December 22, 2024 Notified of Pt discharge by: Pt's spouse. Patient discharged on 12/22/24 from [facility] to Home Primary Cancer Diagnosis: Lung Cancer Admitting Diagnosis: Postobstructive Pneumonia Discharge Summary/SBAR reviewed: Yes Handoff Discussed with Transitional Customs Opener Verifier Packer: N/A Psychosocial Risk Factors: None If patient [...] new meds and changes. Ileana Bear RN [facility] Work Phone: [phone] Miscellaneous Notes* Telephone Encounter - Ileana Bear RN - 12/22/2024 2:06 PM EDT DISCHARGE CALL BACK Today's date: December 22, 2024 Notified of Pt discharge by: Pt's spouse. Patient discharged on 12/22/24 from [facility] to Home Primary Cancer Diagnosis: Lung Cancer Admitting Diagnosis: Postobstructive Pneumonia Discharge Summary/SBAR reviewed: Yes Handoff Discussed with Transitional Customs Opener Verifier Packer: N/A Psychosocial Risk Factors: None If patient [...] changes. Ileana Bear RN documented in this encounterBlanchard Valley Health System [facility]07-11-2025 Telephone encounter Note * Telephone Encounter - Victoria Pack - 12/22/2024 1:30 PM EDT D/C summary scanned. [facility]07-11-2025 Miscellaneous Notes* Telephone Encounter - Victoria [...] AM EDT Update: Alber ortiz/ Jazlyn @ [facility]. Reports pt's discharge is pending results of his ECHO. ECHO ordered due to suspected SVT. Still receiving IV antibiotics for the pneumonia. WBC 19.7. H&H 10.1/32.1. Calcium yesterday was 11.2. Treated w/ calcitonin and bisphosphonate therapy. Repeat today was 9.7. Ileana Bear, RN * Telephone Encounter - Cassia Cantu RN - 12/20/2024 11:15 AM EDT I called and spoke to Meredith nurse at [facility], she said Jatin's doctor did see him this a.m. but she doesn't have an update at this time. She said she isn't aware of an expected discharge date at this time. Nursing will continue to get updates from [facility]. Cassia Cantu RN * Telephone Encounter - [...] pt's stating pt is currently admitted at [facility] fro pneumonitis,possible pneumonia. WBC 33.5 currently on IV vanco and zosyn. Pt was due to start concurrent chemo/RT today. Reyna: can you get records please. Thanks Blanquita Hargrove RN documented in this encounterBlanchard Valley Health System [facility]07-11-2025 Telephone encounter Note * Telephone Encounter - Carlos Funez - 12/22/2024 11:28 AM EDT Labs added [facility]07-11-2025 Telephone encounter Note* Telephone Encounter - Ileana Bear RN - 12/22/2024 11:20 AM EDT Pt will needs labs that day as well. Please add him to the lab schedule @ 145. Thanks! Pt's spouse notified of the appointment and verbalizes understanding. Ileana Bear RN [facility] Work Phone: [phone] Telephone encounter Note* Telephone Encounter - Carlos Funez - 12/22/2024 11:17 AM EDT Follow up scheduled for December 26 at 2pm. He already had a massage set up for 230. [facility]07-11-2025 Telephone encounter Note* Telephone Encounter - [...] scheduled. Thanks! XRT: BREANNA... Ileana Bear RN [facility]07-11-2025 Telephone encounter Note* Telephone Encounter - Rasheed Perez MD - 12/22/2024 10:55 AM EDT Just a follow up to see how he is doing. Thanks [facility]07-11-2025 Telephone encounter Note* Telephone Encounter - Ileana Bear RN - 12/22/2024 10:49 AM EDT Thank you for your quick reply. Should we plan to start treatment that day or just a follow up to see how he is doing? Ileana Bear RN [facility]07-11-2025 Telephone encounter Note* Telephone Encounter - Rasheed Perez MD - 12/22/2024 10:42 AM EDT Schedule follow up with me next week. Thank you [facility]07-11-2025 Telephone encounter Note* Telephone Encounter - [...] his dc summary. Thanks! Ileana Bear RN [facility]07-11-2025 Telephone encounter Note* Telephone Encounter - Ileana Bear RN - 12/22/2024 10:28 AM EDT Update: Spoke w/ Jazlyn @ [facility]. Reports pt's discharge is pending results of his ECHO. ECHO ordered due to suspected SVT. Still receiving IV antibiotics for the pneumonia. WBC 19.7. H&H 10.1/32.1. Calcium yesterday was 11.2. Treated w/ calcitonin and bisphosphonate therapy. Repeat today was 9.7. Ileana Bear RN [facility]07-09-2025 Telephone encounter Note* Telephone Encounter - Cassia Cantu RN - 12/20/2024 11:15 AM EDT I called and spoke to Meredith nurse at [facility], she said Jatin's doctor did see him this a.m. but she doesn't have an update at this time. She said she isn't aware of an expected discharge date at this time. Nursing will continue to get updates from [facility]. Cassia Cantu RN [facility]07-08-2025 Telephone encounter Note* Telephone Encounter - [...] them day by day if need be. [facility] Work Phone: [phone] Telephone encounter Note* Telephone Encounter - Lauren Callejas - 12/19/2024 9:23 AM EDT Pulse Monitoring appt has been canceled Lauren B PSS [facility]07-08-2025 Miscellaneous Notes* Telephone Encounter - Lauren [...] bepostponed. Macy Morgan, PRITI documented in this encounterBlanchard Valley Health System [facility]07-07-2025 Telephone encounter Note * Telephone Encounter - Macy Morgan, PRITI - 12/18/2024 4:46 PM EDT Call placed to [place] and confirmed pt will be inpt tomorrow. Spoke to Lexie on [facility]. They are unsure of discharge planning at this time. They will contact our office when they're aware of discharge plan so we can coordinate chemo/rad start. PSS- please cancel pulse monitoring appt for 12/19. Radiation will be notified that new start will bepostponed. Macy Morgan RN [facility]07-07-2025 Telephone encounter Note* Telephone Encounter - Victoria Pack - 12/18/2024 9:40 AM EDT Records scanned. [facility]07-07-2025 Telephone encounter Note* Telephone Encounter - Charlotte Euceda - 12/18/2024 8:42 AM EDT Cancelled patients appointments with REBEKAH and Dr Wilkerson today 12/18. Charlotte Jackson [facility]07-07-2025 Telephone encounter Note* Telephone Encounter - Blanquita Hargrove RN - 12/18/2024 8:33 AM EDT Call received from pt's stating pt is currently admitted at [facility] fro pneumonitis,possible pneumonia. WBC 33.5 currently on IV vanco and zosyn. Pt was due to start concurrent chemo/RT today. Reyna: can you get records please. Thanks Blanquita Hargrove, RN [facility]07-07-2025 Telephone encounter Note* Telephone Encounter - Macy Morgan RN - 12/18/2024 7:42 AM EDT Rosey from [facility] left voicemail stating she had spoken to Dr Shaw. He is comfortable with Mr Koch having his device checks remotely each week. She will get this scheduled. Device clinic for further questions [phone]. Pt will also be monitored with daily treatment monitoring pulse ox. Macy Morgan RN [facility]07-07-2025 Miscellaneous Notes* Telephone Encounter - Macy Morgan RN - 12/18/2024 7:42 AM EDT Rosey from [facility] left voicemail stating she had spoken to Dr Shaw. He is comfortable with Mr Koch having his device checks remotely each week. She will get this scheduled. Device clinic for further questions [phone]. Pt will also be monitored with daily treatment monitoring pulse ox. Macy Morgan RN * Telephone Encounter - Cassia Cantu RN - 12/14/2024 4:18 PM EDT I called and spoke with Rosey at [facility]. 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 I notified her [...] by Wednesday a.m. Per Anant Davis, medical management trainer, Devise dose report: Cumulative dose to pacemaker is planned to be72 cGy over 30 fractions. Patient is pacemaker dependent. Recommend weekly pacemaker checks and real-time monitoring (pulse ox) during each fraction. Thanks Cassia Cantu RN documented in this encounterBlanchard Valley Health System [facility]07-03-2025 Telephone encounter Note * Telephone Encounter - Cassia Cantu RN - 12/14/2024 4:18 PM EDT I called and spoke with Rosey at [facility]. 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 I notified her [...] by Wednesday a.m. Per Anant Davis, medical management trainer, Devise dose report: Cumulative dose to pacemaker is planned to be72 cGy over 30 fractions. Patient is pacemaker dependent. Recommend weekly pacemaker checks and real-time monitoring (pulse ox) during each fraction. Thanks Cassia Cantu RN [facility]07-01-2025 Telephone encounter Note* Telephone Encounter - Blanquita Hargrove RN - 12/12/2024 4:29 PM EDT Call received from pt's stating they would like to discuss physical therapy as an option for pt when he is here on Wednesday seeing Dr Wilkerson. Pt will need a face to face encounter for this order. Blanquita Hargrove RN [facility] Work Phone: [phone] Miscellaneous Notes* Telephone Encounter - Blanquita Hargrove RN - 12/12/2024 4:29 PM EDT Call received from pt's stating they would like to discuss physical therapy as an option for pt when he is here on Wednesday seeing Dr Wilkerson. Pt will need a face to face encounter for this order. Blanquita Hargrove RN documented in this encounterBlanchard Valley Health System [facility]07-01-2025 Telephone encounter Note * Telephone Encounter - Carolina Perdue - 12/12/2024 11:04 AM EDT Patient scheduled. Carolina Perdue [facility]07-01-2025 Miscellaneous Notes* Telephone Encounter - Carolina [...] for XRT. Carolina Perdue documented in this encounterBlanchard Valley Health System [facility]06-27-2025 Telephone encounter Note * Telephone Encounter - Blanquita Hargrove RN - 12/08/2024 4:12 PM EDT Voicemail received from pt's stating she has questions regarding a prior auth that needs to bedone for [employer] testing. Call placed to pt's and message left requesting her to call our office back Blanquita Hargrove RN [facility] Work Phone: [phone] Miscellaneous Notes* Telephone Encounter - Blanquita Hargrove RN - 12/08/2024 4:12 PM EDT Voicemail received from pt's stating she has questions regarding a prior auth that needs to bedone for [employer] testing. Call placed to pt's and message left requesting her to call our office back Blanquita Hargrove RN documented in this encounterBlanchard Valley Health System [facility]06-27-20[facility] Telephone encounter Note * Telephone Encounter - Rasheed Perez MD - 12/08/2024 10:11 AM EDT No need to repeat now. Thank you. [facility]06-27-2025 Miscellaneous Notes* Telephone Encounter - Rasheed Perez MD - 12/08/2024 10:11 AM EDT No need to repeat now. Thank you. * Telephone Encounter - Blanquita Hargrove RN - 12/08/2024 10:[address] brain done here on 12/07 recommends brain MRI with and without. Pt had a brain MRI done on 11/02 at [facility]. Does this need ot be repeated or no? Please advise Blanquita Hargrove RN documented in this encounterBlanchard Valley Health System [facility]06-27-20[facility] Telephone encounter Note * Telephone Encounter - Blanquita Hargrove RN - 12/08/2024 10:[address]'s [address] brain done here on 12/07 recommends brain MRI with and without. Pt had a brain MRI done on 11/02 at [facility]. Does this need ot be repeated or no? Please advise Blanquita Hargrove RN [facility] Work Phone: [phone]) [phone] History of Present illness Narrative* Ezra Lizama MD - 12/08/2024 12:00 AM EDT JATIN KOCH [id number] 12/08/2024 [facility] Radiation Oncology Department SIMULATION NOTE DATE OF [...] / CDT 54:44 PM documented in this encounterBlanchard Valley Health System [facility]06-27[facility] History of Present illness Narrative* Ezra Lizama MD - 12/08/2024 12:00 AM EDT JATIN KOCH [id number] 12/08/2024 [facility] Cancer [facility] - Department of Radiation Oncology Treatment Planning [...] Lizama M.D. 54:01 AM documented in this encounterBlanchard Valley Health System [facility]06-27-2025 [facility]06-27-2025 [facility]06-26-2025 History of Present illness Narrative* Shola Milan, VINAY-SENIOR WINDOWS ADMINISTRATOR - 12/07/2024 3:00 PM EDT Jatin Koch II Date of visit: 12/07/2024 Date of : 1960 Age: 64 y.o. Patient Active Problem List Diagnosis AV block BPH with urinary obstruction Arthritis Gout Squamous cell lung cancer ([facility]) Syncope Pacemaker- [employer] Allergies Allergen Reactions Bactrim [Sulfamethoxazole-Trimethoprim] Codeine diaphoresis [...] 11/09/2024 Performed by Robert Veloz MD at [facility] (EP) SKIN BIOPSY basal cell carcinoma removed from left faith TONSILLECTOMY TURP / TRANSURETHRAL INCISION / DRAINAGE [...] Squamous cell carcinoma of lung, unspecified laterality ([facility]) 1. Intermittent complete heart block symptomatic with syncopal episodes s/p [employer] dual-chamber pacemaker 11/09/2024. Elevated atrial threshold [...] PCP: CLINT PRINCE Referring Physician: CLINT Prince [address] [place], [place] [address] [address] CLINT Chowdary 12/07/24 1540 documented in this encounterTriHealth [facility]06-26-2025 History of Present illness Narrative* Robert Veloz MD - 12/07/2024 2:30 PM EDT I agree with the findings in the scanned document. documented in this encounterTriHealth [facility]06-26-2025 History of Present illness Narrative* Ileana Little, [...] PATIENT PRESENTS WITH AN IMPLANTABLE OR ATTACHED CUSTOM DESIGNER: No RADIOLOGY DEPARTMENT: CT; Exam(s) Completed: Brain PERIPHERAL IV DATA: Not applicable SIGNED BY: RT Meagan(R) December 07, 2024 8:26 AM documented in this encounterBlanchard Valley Health System [facility]06-26-2025 NoteTrihealth [facility]06-25-2025 Telephone encounter Note* Telephone Encounter - Victoria Pack - 12/06/2024 2:47 PM EDT Records scanned. [facility]06-25-2025 Miscellaneous Notes* Telephone Encounter - Victoria [...] Thanks Blanquita Hargrove RN documented in this encounterBlanchard Valley Health System [facility]06-25-2025 Telephone encounter Note * Telephone Encounter - Blanquita Hargrove RN - 12/06/2024 11:38 AM EDT Pt's CXR shows no changes. Blanquita Hargrove RN [facility] Work Phone: 1([phone]) 231-969106-24-2025 Telephone encounter Note* Telephone Encounter - Rasheed Perez MD - 12/05/2024 2:52 PM EDT Consider going to ER if symptoms get worse. Thank you [facility]06-24-2025 Telephone encounter Note* Telephone Encounter - [...] from PCP please Thanks Blanquita Hargrove RN [facility]06-23-2025 History of Present illness Narrative* Ezra Lizama MD - 12/04/2024 11:39 PM EDT Images from the original note were not included. Radiation Oncology - New Patient/Consult Note PATIENT NAME: Jatin Koch II PATIENT Signed: Ezra Lizama MD I spent a total of 60 minutes on the date of the service which included preparing to see the patient, [id number] patient care, and counseling and educating the [...] N Cassia Cantu RN documented in this encounterBlanchard Valley Health System [facility]06-18-2025 Telephone encounter Note * Telephone Encounter - Carolina Perdue - 11/29/2024 4:01 PM EDT SIM rescheduled to 12/08. [facility]06-17-2025 Telephone encounter Note* Telephone Encounter - Lauren Callejas - 11/28/2024 3:22 PM EDT IV start appointment has been added. I called and spoke to Gina Eloy. I reminded her of the CT on 12/07/24. I confirmed his [facility] arrival date and time on the . Lauren B PSS [facility]06-17-2025 Miscellaneous Notes* Telephone Encounter - Lauren [...] advise. Macy Morgan RN documented in this encounterBlanchard Valley Health System [facility] [facility] Telephone encounter Note * Telephone Encounter - Macy Morgan RN - 11/28/2024 3:13 PM EDT Please notify pt and adjust appts. Macy Morgan RN [facility]06-17-2025 Telephone encounter Note* Telephone Encounter - Nancy De La Cruz, RT(R) - 11/28/2024 2:20 PM EDT Sim rescheduled for 12/08/24 at 10:30 Will need nurse visit for IV start Nancy De La Cruz RT(R)(T) [facility]06-17-2025 Telephone encounter Note* Telephone Encounter - [...] be prior to that. Macy Morgan, RN [facility]06-17-2025 Telephone encounter Note* Telephone Encounter - Lauren Callejas - 11/28/2024 11:56 AM EDT Nurse visit has been canceled Lauren B PSS [facility]06-17-2025 Telephone encounter Note* Telephone Encounter - Nancy De La Cruz, RT(R) - 11/28/2024 11:52 AM EDT Sim cancelled for 11/30/24; will reschedule once notified when to re add PSS- please cancel nurse visit for 11/30 Nancy Jono, RT(R)(T) [facility]06-17-2025 Telephone encounter Note* Telephone Encounter - [...] 1 week? Please advise. Macy Morgan, RN [facility]06-16-2025 Telephone encounter Note* Telephone Encounter - José Antonio Tapia MD - 11/27/2024 6:00 PM EDT Recived outside call Eulalio Porras. Patient presented to [facility] ED w/ 5 days of fever. Positive [...] to call them tomorrow and reschedule hisappointment. [facility] Work Phone: [phone]) 150-437906-16-2025 Miscellaneous Notes* Telephone Encounter - José Antonio Tapia MD - 11/27/2024 6:00 PM EDT Recived outside call Eulalio Porras. Patient presented to [facility] ED w/ 5 days of fever. Positive [...] tomorrow and reschedule hisappointment. documented in this encounterBlanchard Valley [facility] Telephone encounter Note * Telephone Encounter [...] Eloy is in agreement with this plan. [facility]06-16-2025 Miscellaneous Notes* Telephone Encounter - Nancy [...] She stated the doxycyline is not working [phone] Eloy documented in this encounterBlanchard Valley Health [facility] Telephone encounter Note * Telephone Encounter - Lauren Callejas - 11/27/2024 11:52 AM EDT Called and spoke to Jatin and we scheduled him for a CT on 12/07/24 at 8:30 AM Lauren Brownlee PSS [facility]06-16-2025 Miscellaneous Notes* Telephone Encounter - Lauren [...] advise Blanquita Hargrove RN documented in this encounterBlanchard Valley Health System [facility] Telephone encounter Note * Telephone Encounter - Blanquita Hargrove RN - 11/27/2024 11:03 AM EDT Please call pt's and schedule CT head ordered by Dr Wilkerson. Thanks Blanquita Hargrove RN [facility] Work Phone: [phone] Telephone encounter Note* Telephone Encounter - Rasheed Perez MD - 11/27/2024 10:52 AM EDT I ordered a CT head. Thank you [facility]06-16-2025 Telephone encounter Note* Telephone Encounter - Candice Garay - 11/27/2024 10:37 AM EDT Patient called and stated if something else can be given to patient for his MRSA. He is running fevers, getting chills,and diuretic episodes She stated the doxycyline is not working [phone] Eloy [facility]06-16-2025 Telephone encounter Note* Telephone Encounter - [...] was negative. Please advise Blanquita Hargrove RN [facility]06-16-2025 [facility]Tri[facility] History of Present illness Narrative* Blanquita [...] here at our office. Blanquita Hargrove, RN Customs Opener Verifier Packer Pre Chemo Patient identified by name and date of . YES Confirmed date and time for chemotherapy ? YES TBD Other appointments (labs, imaging) discussed? YES Discussed where to park (legal billing analyst), charge for parking NO Discussed where to [...] 5 days for MRSA. Encouraged to call outpatient facility physical therapist who pt is following for MRSA to [...] this. Blanquita Hargrove RN * Shayy Eloy, [facility] - 11/27/2024 9:00 AM EDT Images from the original note were not included. [facility] Department of Pharmacy Oncology Pharmacy Medication [...] patient Eloy Lucas RPh documented in this encounterBlanchard Valley Health [facility]06[facility] Telephone encounter Note * Telephone Encounter - Blanquita Hargrove RN - 11/27/2024 9:09 AM EDT Please sign pending antiemetics for pt's education today. Thanks Blanquita Hargrove RN [facility]06-16-2025 Miscellaneous Notes* Telephone Encounter - Blanquita Hargrove RN - 11/27/2024 9:09 AM EDT Please sign pending antiemetics for pt's education today. Thanks Blanquita Hargrove RN documented in this encounterBlanchard Valley Health System [facility]06[facility]25 Miscellaneous Notes* Addendum Note - Eloy Lucas RPh - 11/27/2024 9:00 AM EDTAddended by: ELOY LUCAS on: 11/27/2024 11:45 AM Modules accepted: Orders * Addendum Note - Eloy Lucas [facility] - 11/27/2024 9:00 AM EDTAddended by: ELOY LUCAS on: 11/27/2024 11:58 AM Modules accepted: Orders documented in this encounterBlanchard Valley Health System [facility]06[facility] Note* Addendum Note - Eloy Lucas [facility] - 11/27/2024 9:00 AM EDTAddended by: ELOY LUCAS on: 11/27/2024 11:45 AM Modules accepted: Orders [facility]06-16-2025 Note* Addendum Note - Eloy Lucas [facility] - 11/27/2024 9:00 AM EDTAddended by: ELOY LUCAS on: 11/27/2024 11:58 AM Modules accepted: Orders [facility]06-16-2025 NoteTri[facility]06-12-2025 Telephone encounter Note* Telephone Encounter - Carolina Perdue - 11/23/2024 1:46 PM EDT Per appointments, pt's SIM was rescheduled to 11/30. Carolina Perdue [facility]06-12-2025 Telephone encounter Note* Telephone Encounter - Blessing Dougherty - 11/23/2024 12:33 PM EDT I spoke with patient & let him know his SIM was rescheduled to 11/30/2024 & to arrive by 8:30 am. CLAY Ramos [facility]06-12-2025 Miscellaneous Notes* Telephone Encounter - Blessing [...] aware that Dr. Lizama will be in [place] on 11/27 and 11/28. Cassia Cantu RN [...] this a.m.? PSS: Please schedule PFT's at [facility] per patient request. These need scheduled [...] pending but would like them done at [facility]-no orders in [facility]. She also asked about a CT chest with IV contrast being ordered-no orders in [facility]. She said he is to have labs per Dr. Perez and is wondering if he can have those drawn at [facility] as well. Patient is currently scheduled for SIM today with Dr. Lizama. Please advise: Does patient need PFT's and/or CT chest? Can patient have [facility] one and other ordered labs at [facility] or do they need done at [facility]? Should SIM continue today or be rescheduled d/t MRSA? Thanks Cassia Cantu RN documented in this encounterBlanchard Valley Health System [facility]06-12-2025 Telephone encounter Note * Telephone Encounter - Blessing Dougherty - 11/23/2024 12:32 PM EDT Added nurse visit for IV start on 11/30/2024 at 8:45 am. CLAY Ramos [facility]06-12-2025 Telephone encounter Note* Telephone Encounter - Nancy De La Cruz RT(R) - 11/23/2024 12:26 PM EDT Sim re- scheduled for 11/30/24 at 9:00 am Please add nurse visit for 8:45 for IV start, notify patient of arrival time of 8:30 Nancy Hussein RT(R)(T) [facility]06-12-2025 Telephone encounter Note* Telephone Encounter - [...] aware that Dr. Lizama will be in [place] on 11/27 and 11/28. Cassia Cantu RN [facility]06-12-2025 Telephone encounter Note* Telephone Encounter - Cassia Cantu RN - 11/23/2024 10:21 AM EDT Eloy called back and current temp is 98.9, with Tylenol 1, 00mg at 8:00 a.m. Cassia Cantu RN [facility]06-12-2025 Telephone encounter Note* Telephone Encounter - [...] this a.m.? PSS: Please schedule PFT's at [facility] per patient request. These need scheduled prior to radiation new start. Thanks Cassia Cantu RN [facility]06-12-2025 Telephone encounter Note* Telephone Encounter - Rasheed Perez MD - 11/23/2024 9:47 AM EDT No need of PFTs and CT chest. T [facility] Work Phone: 1(153) 769-127606-12-2025 Telephone encounter Note* Telephone Encounter - Ileana Bear RN - 11/23/2024 9:43 AM EDT Foundation labs will need to be drawn in our office. Will defer the other questions to the providers. Ileana Bear RN T [facility] Work Phone: [phone]) 281-562806-12-2025 Telephone encounter Note* Telephone Encounter - Janell An - 11/23/2024 9:33 AM EDT Patient has a string cough but unable to cough up mucous. Patient would like saline for nebulizer sent to [facility] at [address] [place] [address] in [place] [address] [facility]06-12-2025 Miscellaneous Notes* Telephone Encounter - Janell An - 11/23/2024 9:33 AM EDT Patient has a string cough but unable to cough up mucous. Patient would like saline for nebulizer sent to [facility] at [address] [place] [address] in [place] [address] documented in this encounterBlanchard Valley Health System [facility]06-12-2025 Telephone encounter Note * Telephone Encounter - Cassia Cantu RN - 11/23/2024 9:23 AM EDT Eloy, pt's spouse, left a message stating Jatin had bronchoscopy and sputum culture and will be starting doxycycline 100mg BID x 7 days today for MRSA. She is said authorization for PFT's is still pending but would like them done at [facility]-no orders in [facility]. She also asked about a CT chest with IV contrast being ordered-no orders in [facility]. She said he is to have labs per Dr. Perez and is wondering if he can have those drawn at [facility] as well. Patient is currently scheduled for SIM today with Dr. Lizama. Please advise: Does patient need PFT's and/or CT chest? Can patient have [facility] one and other ordered labs at [facility] or do they need done at [facility]? Should SIM continue today or be rescheduled d/t MRSA? Thanks Cassia Cantu RN [facility]06-12-2025 Progress note* Result Encounter Note - [...] food/ snack andlight sensitivity. All questions answered. [facility]06-12-2025 Miscellaneous Notes* Result Encounter Note - [...] sensitivity. All questions answered. documented in this encounterBlanchard Valley Health System [facility]06-11-2025 History of Present illness Narrative* Shola Milan APRN-SENIOR WINDOWS ADMINISTRATOR - 11/22/2024 1:00 PM EDT Jatin Koch II Date of visit: 11/22/2024 Date of : 1960 Age: 64 y.o. Patient Active Problem List Diagnosis AV block BPH with urinary obstruction Arthritis Gout Squamous cell lung cancer ([facility]) Syncope Allergies Allergen Reactions Bactrim [...] heart block. He was recently seen at [facility] warranting pacer implant. He was seen at [place] [facility] due to recurrent syncope and EKG findings of intermittent complete heart block. Transferred to [facility] after evaluation at the [place] office. He is currently being treated for lung CA right lower lobe through [facility]. Also treated for hypertension. Device implant 11/09/2024 Dr. Veloz. He had had scheduled outpatient bronchoscopy through [facility] on the . His device was [...] evaluated in the ER. He lives in [facility]. He is scheduled for device check again in a couple weeks. I will see him at that time Past Medical History: Diagnosis Date Arthritis Hypertension Lung cancer (CMS-HCC) No data recorded No data recorded No data recorded Past Surgical History: Procedure Laterality Date EP Invasive DC PPM Left 11/09/2024 Performed by Robert Veloz MD at [facility] () SKIN BIOPSY basal cell carcinoma removed from left faith TONSILLECTOMY TURP / TRANSURETHRAL INCISION / DRAINAGE [...] heart block symptomatic with syncopal episodes s/p [employer] dual-chamber pacemaker 11/09/2024. Elevated atrial threshold noted on device check through [facility] 11/20/2024. Repeat device check today:, x-ray [...] PCP: CLINT PRINCE Referring Physician: CLINT Prince [address] [place] [address] [place] [address] CLINT Chowdary 11/22/24 1403 documented in this encounterTriHealth [facility]06-11-2025 History of Present illness Narrative* Reuben Reyna MD - 11/22/2024 1:00 PM EDT I agree with the findings in the scanned document. documented in this encounterTriHealth [facility]hes[facility] Hospital06-09-2025 Telephone encounter Note* Telephone Encounter - Carolina Perdue - 11/20/2024 2:16 PM EDT SIM scheduled for 11/23 -- Education w/ Blanquita scheduled on 11/30 (Tiff was out on the ). Patient notified of ed appt. Carolina Perdue [facility]06-09-2025 NoteTrihealth [facility]06-09-2025 Telephone encounter Note* Telephone Encounter - Carolina Cooney RN - 11/20/2024 10:48 AM EDT Pt recently had PPM implanted 11/09/[address] Robert Veloz's office (patient's implanting EP doctor) to notify clinic about the RA lead'sthreshold is at 4.5V @ 0.4ms. Was able to speak to device clinic and faxed report over to [phone] [facility]06-09-2025 Miscellaneous Notes* Telephone Encounter - Carolina Cooney RN - 11/20/2024 10:48 AM EDT Pt recently had PPM implanted 11/09/[address] Robert Veloz's office (patient's implanting EP doctor) to notify clinic about the RA lead'sthreshold is at 4.5V @ 0.4ms. Was able to speak to device clinic and faxed report over to [phone] documented in this encounterBlanchard Valley Health System [facility]06-09-2025 Telephone encounter Note * Telephone Encounter - Carlos Funez - 11/20/2024 8:03 AM EDT Spoke to Patient, arrival time of 230pm on 11/23 and no special instructions [facility]06-09-2025 Miscellaneous Notes* Telephone Encounter - Carlos Funez - 11/20/2024 8:03 AM EDT Spoke to Patient, arrival time of 230pm on 11/23 and no special instructions * Telephone Encounter - Cassia Cantu RN - 11/17/2024 4:00 PM EDT Patient states he has already met with the pipelines superintendent and has upcoming follow up. Cassia Cantu [...] start day of SIM Nurse ed today Pad Assembler consult(order pending signature) Thanks Cassia Cantu RN documented in this encounterBlanchard Valley Health System [facility]06-06-2025 NoteTrihealth [facility]06-06-2025 NoteTrihealth [facility]06-06-2025 History of Present illness Narrative* Cassia Cantu RN - 11/17/2024 4:01 PM EDT Radiation Therapy - Patient Education Note PATIENT NAME: Jatin Koch II PATIENT November 17, 2024 [facility] FACILITY/LOCATION: [facility] READINESS TO LEARN Cognitive Ability: Alert and [...] need for social work, van service, and pipelines superintendent. Patient has an On[employer] or Implanted device: Yes, person notified was: Dr. Lizama and team Signed by: Cassia Cantu RN documented in this encounterBlanchard Valley Health System [facility]06-06-2025 Telephone encounter Note * Telephone Encounter - Cassia Cantu RN - 11/17/2024 4:00 PM EDT Patient states he has already met with the pipelines superintendent and has upcoming follow up. Cassia Cantu RN [facility]06-06-2025 Telephone encounter Note* Telephone Encounter - Zaida Davis Tech - 11/17/2024 3:10 PM EDT PSS- I scheduled Lung Sim on 11/23/2024 at 3:00pm Nurse visit at 2:45pm for IV contrast Arrival time of 2:30pm, No special instructions. Thank you, Zaida Monsalve [facility] Work Phone: [phone]) [phone] Telephone encounter Note* Telephone Encounter - Carolina Perdue - 11/17/2024 3:01 PM EDT Images from the original note were not included. Will schedule once RTC date is deteremined for XRT. Carolina Perdue [facility]06-06-2025 Instructions* Patient Instructions* Rasheed Perez MD - 11/17/2024 2:41 PM EDT Chemo teach for weekly carbo taxol Schedule chemo in 2 weeks on or after the start day of radiation F/u in 2 weeks documented in this encounterBlanchard Valley Health System [facility]06-06-2025 Telephone encounter Note * Telephone Encounter - Cassia Cantu RN - 11/17/2024 2:33 PM EDT PSS/RT: please schedule SIM 11/23 treating lung with IV contrast, esophageal contrast, 4DCT Consent signed Needs nurse appt for IV start day of SIM Nurse ed today Pad Assembler consult(order pending signature) Thanks Cassia Cantu RN [facility]06-06-2025 History of Present illness Narrative* Rasehed Perez MD - 11/17/2024 2:00 PM EDT Images from the original note were not included. PATIENT NAME: Jatin Koch II CLINIC NO.: [id number] ATTENDING PHYSICIAN: Rasheed Perez MD DATE OF SERVICE: 11/17/[address] Chip Gary [place] [address] thank you for referring Jatin Koch II [...] in [address] Chip Carbajal [address] [place] [address] thank you for allowing me to participate in Jatin Koch II care, if there are any questions or concerns please do not hesitate to contact me at the number below. I spent a total of 20 minutes on the date of the service which included preparing to see the patient, [id number] patient care, completing clinical documentation, obtaining and/or reviewing separately obtained history, performing a medically appropriate examination, counseling and educating the pat ient/family/caregiver, ordering medications, tests, or procedures, communicating with other HCPs (not separately reported), independently interpreting results (not separately reported), communicatingresults to the patient/family/caregiver, and care coordination (not separately reported). Rasheed Perez MD. Hematology/Medical Oncology [facility] [phone] CC: documented in this encounterBlanchard Valley Health System [facility]06-06-2025 NoteTrihealth [facility]06-06-2025 Miscellaneous Notes* Telephone Encounter - Josseline Stewart RN - 11/17/2024 1:35 PM EDT [facility] called in asking if pt is PPM dependent. New PPM implanted 11/09/24. Planning radiation tx to his lung. No treatment plan yet. First device check scheduled 12/07/24. Not dependent at implant. Asked to call us back when radiation plans are known. documented in this encounterTriHealth [facility]hes[facility] Hospital06-06-2025 Telephone encounter Note* Telephone Encounter - Josseline Stewart RN - 11/17/2024 1:35 PM EDT [facility] called in asking if pt is PPM dependent. New PPM implanted 11/09/24. Planning radiation tx to his lung. No treatment plan yet. First device check scheduled 12/07/24. Not dependent at implant. Asked to call us back when radiation plans are known. [facility] [employer] [id number] Telephone encounter Note* Telephone Encounter - Cassia Cantu RN - 11/17/2024 1:33 PM EDT I called [facility] pacemaker clinic to verify if Jatin is pacemaker dependent or not. Josseline, in the device clinic, said his pacemaker was just placed 11/09/24 and his first device check is scheduled for 12/07/24. [facility] device clinic phone # [phone]. Thanks Cassia Cantu RN [facility]06-06-2025 Miscellaneous Notes* Telephone Encounter - Cassia Cantu RN - 11/17/2024 1:33 PM EDT I called [facility] pacemaker clinic to verify if Jatin is pacemaker dependent or not. Josseline, in the device clinic, said his pacemaker was just placed 11/09/24 and his first device check is scheduled for 12/07/24. [facility] device clinic phone # [phone]. Thanks Cassia Cantu RN documented in this encounterBlanchard Valley Health System [facility]06-06-2025 NoteTrihealth [facility]06-04-2025 Instructions* Patient Instructions* Alexandre Robertson MD [...] and until procedure is done Please call [phone] for additional information prior to bronchoscopy if you have questions You will need someone to bring you to this procedure and stay for the entire duration of procedure as you cannot drive home after procedure documented in this encounterBlanchard Valley Health System [facility]06-04-2025 History of Present illness Narrative* Alexandre Robertson MD - 11/15/2024 11:00 AM EDT INTERVENTIONAL PULMONARY MEDICINE CONSULTATION PLEASE DO NOT REMOVE FROM THE CHART OR MODIFY PRINTED COPY Patient Name: Jatin Koch II PRIMARY CARE PHYSICIAN: Carlos Collins APRN.SENIOR WINDOWS ADMINISTRATOR REFERRING PHYSICIAN: Dr. 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 My final recommendations/evaluation will be communicated back to the requesting physician by way of shared medical record or letter via US mail. Recording using [employer] software for draft documentation of the visit was discussed with the patient/authorized agency service representative; all questions welcomed and answered. Patient/authorized agency service representative agreed to proceed CHIEF COMPLAINT: Bronchial obstruction with tumor HISTORY OF PRESENT ILLNESS: Jatin Koch II is a 64 year old male with known right lung squamous cell carcinoma who is here to discuss next steps with the obstruction. Jatin presents with a chronic dry cough that began in June. [facility] and influenza A and B, but the cough persisted. Due to the lack of improvement, his scheduled an appointment with a outpatient facility physical therapist, who ordered a CT scan with contrast. 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 All questions were answered to the best of my ability. Written and verbal health teaching given to patient, patient verbalizes understanding and agrees with treatment plan. Electronically Signed: Alexandre Robertson MD November 15, 2024 12:06 PM documented in this encounterBlanchard Valley Health System [facility]06-04-2025 NoteTrihealth [facility]05-28-2025 History of Present illness Narrative* Maritza [...] pain.(Patient not taking: Reported on 11/08/2024) PEPSIN/BLESSING/OXBILE/PANCREAT/BET ([id number] [id number]-PAP ORAL) Take by mouth. 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 With involvement of the lymph node, history of diverticulitis, Patient was seen at [facility] following syncope hardware with about 40 [...] BIOPSY basal cell carcinoma removed from left faith TONSILLECTOMY TURP / TRANSURETHRAL INCISION / DRAINAGE [...] the emergency room to be transferred to [facility] for pacemaker evaluation to suggest 2D echo and nuclear stress test Follow-up with me in 6 months if needed TODAYS ORDERS Orders Placed This Encounter Procedures POCT EKG FOLLOW UP Return in about 6 months (around 05/11/2025). PCP: CARLOS COLLINS, 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-SENIOR WINDOWS ADMINISTRATOR Referring Physician: Alina Ragland MD [address] [place] [phone] documented in this encounterCleveland Clinic Euclid HospitalTalkBin [facility] [id number] Telephone encounter Note* Telephone Encounter - Mamie Zepeda MA - 11/08/2024 11:09 AM EDT FMLA paperwork signed and original left at front end developer designer for Eloy to pickle maker on Wednesday. Original placed in scanning. Mamie Zepeda MA [facility]05-28-2025 Miscellaneous Notes* Telephone Encounter - Mamie Benson MA - 11/08/2024 11:09 AM EDT FMLA paperwork signed and original left at front end developer designer for [employer]oy to pickle maker on Wednesday. Original placed in scanning. Mamie Zepeda MA * Telephone Encounter - Oskar Freeman MA - 11/07/2024 3:20 PM EDT [facility] paperwork completed for family member has been completed and placed in folder to be signed. Oskar Freeman MA documented in this encounterBlanchard Valley [facility] Miscellaneous Notes* Telephone Encounter - Brittany Marie RN - 11/07/2024 4:25 PM EDT Pt was in ER at [facility] twice over the weekend. First pt diagnosed with vertigo and sent homeon Meclizine. Pt became bradycardic and was then admitted to [place] with bradycardia and pneumonia. Pt discharged home on Levaquin, taper prednisone and continues meclizine as needed. He is on a holter monitor and sees [facility] cardiology tomorrow. Pt scheduled for AV/LILIAM WednesdayNovember 10. just wanted providers updated. Reyna: please obtain records AV/LILIAM: BREANNA Marie RN documented in this encounterBlanchard Valley Health [facility]05[facility] Telephone encounter Note * Telephone Encounter - Brittany Marie RN - 11/07/2024 4:25 PM EDT Pt was in ER at [facility] twice over the weekend. First pt diagnosed with vertigo and sent homeon Meclizine. Pt became bradycardic and was then admitted to [place] with bradycardia and pneumonia. Pt discharged home on Levaquin, taper prednisone and continues meclizine as needed. He is on a holter monitor and sees [facility] cardiology tomorrow. Pt scheduled for AV/LILIAM WednesdayNovember 10. just wanted providers updated. Reyna: please obtain records AV/LILIAM: BREANNA Marie RN [facility]05-27-2025 Telephone encounter Note* Telephone Encounter - Oskar Freeman MA - 11/07/2024 3:20 PM EDT [place] paperwork completed for family member has been completed and placed in folder to be signed. Oskar Freeman MA [facility]05-27-2025 Miscellaneous Notes* Telephone Encounter - Victoria Collado CMA - 11/07/2024 10:51 AM EDT Called patient to remind them to bring their most current copy of their medication list with them to their appt. Patient verbalizes understanding. documented in this encounterTriHealth [facility]05-27-2025 Telephone encounter Note* Telephone Encounter - Victoria Collado CMA - 11/07/2024 10:51 AM EDT Called patient to remind them to bring their most current copy of their medication list with them to their appt. Patient verbalizes understanding. [facility]05-20-2025 NoteTrihealth [facility]hes[facility] North Hospital05-19-2025 Note [facility]05-16-2025 Telephone encounter Note* Telephone Encounter - Janell An - 10/27/2024 10:19 AM EDT Referring Physician: Dr. Rasheed Perez Address: [facility] [employer] Phone #: [phone] Fax #: [phone] Reason for referral: Malignant neoplasm of lower lobe of right lung Is there CareEverywhere Records: Yes Is there Imaging available: Yes - Recent CT: Yes - Date of CT: 10/18/2024 [facility]05-16-2025 Miscellaneous Notes* Telephone Encounter - Janell An - 10/27/2024 10:19 AM EDT Referring Physician: Dr. Rasheed Perez Address: [facility] [employer] Phone #: [phone] Fax #: [phone] Reason for referral: Malignant neoplasm of lower lobe of right lung Is there CareEverywhere Records: Yes Is there Imaging available: Yes - Recent CT: Yes - Date of CT: 10/18/2024 documented in this encounterBlanchard Valley Health System [facility]05-16-2025 Note* Addendum Note - Rasheed Perez MD - 10/27/2024 9:57 AM EDTAddended by: RASHEED PEREZ on: 10/27/2024 09:57 AM Modules accepted: Orders [facility]05-16-2025 Miscellaneous Notes* Addendum Note - Rasheed Perez MD - 10/27/2024 9:57 AM EDTAddended by: RASHEED PEREZ on: 10/27/2024 09:57 AM Modules accepted: Orders documented in this encounterBlanchard Valley Health System [facility]05-16-2025 Instructions* Patient Instructions* Rasheed Perez MD - 10/27/2024 9:26 AM EDT Refer to radiation oncology Refer to interventional pulmonology Ordered MRI brain F/u in 2 weeks documented in this encounterBlanchard Valley Health System [facility]05-16-[facility] History of Present illness Narrative* Rasheed Perez MD - 10/27/2024 9:00 AM EDT Images from the original note were not included. PATIENT NAME: Jatin Koch II CLINIC NO.: [id number] ATTENDING PHYSICIAN: Rasheed Perez MD DATE OF SERVICE: October 27, [address] Chip Carbajal [address] [place] [address] thank you for referring Jatin Koch II [...] in [address] Chip Carbajal [address] [place] [address] thank you for allowing me to participate in Jatin Koch II care, if there are any questions or concerns please do not hesitate to contact me at the number below. I spent a total of 60 minutes on the date of the service which included preparing to see the patient, [id number] patient care, completing clinical documentation, obtaining and/or reviewing separately obtained history, performing a medically appropriate examination, counseling and educating the pat ient/family/caregiver, ordering medications, tests, or procedures, communicating with other HCPs (not separately reported), independently interpreting results (not separately reported), communicatingresults to the patient/family/caregiver, and care coordination (not separately reported). Rasheed Perez MD. Hematology/Medical Oncology [facility] [employer] [phone] CC: * Mamie Zepeda MA - 10/27/2024 8:59 AM EDT Ravi has an irritating cough but has not coughed up blood since Wednesday, Low grade started Wednesday 102.2 chills on Wednesday (he does not take temp). He has been taking Tylenol to help minimize temps. Mamie Zepeda MA documented in this encounterBlanchard Valley Health System [facility]05-16-2025 NoteTrihealth [facility]hesda [facility] Hospital05-16-2025 NoteTrihealth [facility]04-01-2025 Miscellaneous Notes * Telephone Encounter - Dara Vásquez MA - 02/15/2025 12:52 PM EDT Brian Reyesmaryjane (son) called the fax copy of his [facility] paperwork never went through. So,he is requesting that his paperwork be sent through email at [email or web address] and to [email or web address]. Done with success. Dara Vásquez MA documented in this encounterBlanchard Valley Health System [facility]04-01-2025 Miscellaneous Notes* Telephone Encounter - Dara Vásquez MA - 02/19/2025 9:35 AM EDT Patient coming Wednesday02/21/25 for follow up with labs. Please add lab orders. Thanks. Dara Vásquez MA documented in this encounterBlanchard Valley Health System [facility]01-16-20[facility] Evaluation + Plan note Diagnostic Tests Pending * PSA Screen, Total 06/29/23 [facility] 01-16-2024 Hospital Discharge instructions Patient Education 06/29/2023 09:10:43 Kidney Stones, Jenc-ep-Kesl Kidney Stones Kidney stones are rock-like masses [...] Follow these instructions at home: Medicines Take [id number] and prescription medicines only as told by [...] provider. Document Revised: 02/02/2022 Document Reviewed: 02/02/2022 [email or web address] Patient Education 2022 [employer]. Follow Up Care 06/23/2022 09:07:35 With:SANDRA PALMA, VICTORIA Flores, URL Address: [address] 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)- Primary Bronchial obstruction Other diseases of trachea and bronchus Bronchiolar disease Other diseases of trachea and bronchus documented in this encounter [facility] HospitalEval[facility] [place] [facility]* Diagnosis Malignant neoplasm of lower lobe of right lung (HCC)- Primary Bronchiolar disease Other diseases of trachea and bronchus documented in this encounter [facility] HospitalEval[facility] [place] [facility]* Diagnosis AV block- Primary Unspecified atrioventricular block Squamous cell carcinoma of lung, unspecified laterality (CMS-HCC) Pacemaker Cardiac pacemaker in situ documented in this encounter [facility] HospitalEvalun[facility] [place] [facility]* Diagnosis Pacemaker- [place]- Primary Cardiac pacemaker in situ documented in this encounter [facility] HospitalEvalun[facility] [place] [facility]* Diagnosis Pneumonia of right lower lobe due to methicillin resistant Staphylococcus aureus (MRSA) (HCC)- Primary documented in this encounter [facility] [place] [facility]* Diagnosis Malignant neoplasm of lower lobe of right lung (HCC)- Primary documented in this encounter [facility] [place] [facility]* Diagnosis Malignant neoplasm of lower lobe of right lung (HCC)- Primary documented in this encounter [facility] [place] [facility]* Diagnosis Malignant neoplasm of lower lobe of right lung (HCC)- Primary documented in this encounter [facility]* Diagnosis Malignant neoplasm of lower lobe of right lung (HCC)- Primary documented in this encounter [facility] [place] [facility]* Diagnosis Malignant neoplasm of lower lobe of right lung (HCC) documented in this encounter [facility]* Diagnosis Pacemaker- Primary Cardiac pacemaker in situ AV block Unspecified atrioventricular block Squamous cell carcinoma of lung, unspecified laterality (CMS-HCC) documented in this encounter [facility] [place] [facility]* Diagnosis Pacemaker- Primary Cardiac pacemaker in situ documented in this encounter [facility] [place] [facility]* Diagnosis Malignant neoplasm of lower lobe of right lung (HCC)- Primary documented in this encounter [facility] [place] [facility]* Diagnosis Pre-op testing Preoperative examination, unspecified [facility] [place] [facility]* Diagnosis Malignant neoplasm of lower lobe of right lung (HCC)- Primary documented in this encounter [facility] [place] [facility]* Diagnosis Muscle soreness- Primary Mylagia and myositis, unspecified documented in this encounter [facility] [place] [facility]* Diagnosis Malignant neoplasm of lower lobe of right lung (HCC)- Primary documented in this encounter [facility] [place] [facility]* Diagnosis Malignant neoplasm of lower lobe of right lung (HCC)- Primary documented in this encounter [facility] [place] [facility]* Diagnosis Malignant neoplasm of lower lobe of right lung (HCC)- Primary documented in this encounter [facility] [place] [facility]* Diagnosis Malignant neoplasm of lower lobe of right lung (HCC)- Primary [facility] [place] [facility]* Diagnosis Malignant neoplasm of lower lobe of right lung (HCC)- Primary documented in this encounter [facility] [place] [facility]* Diagnosis Malignant [...] and myositis, unspecified documented in this encounter [facility] [place] [facility]* Diagnosis Malignant neoplasm of lower lobe of right lung (HCC)- Primary documented in this encounter [facility] [place] [facility]* Diagnosis Malignant neoplasm of lower lobe of right lung (HCC)- Primary [facility] [place] [facility]* Diagnosis Malignant neoplasm of lower lobe of right lung (HCC)- Primary documented in this encounter [facility] [place] [facility]* Diagnosis Dehydration- Primary documented in this encounter [facility] [place] [facility]* Diagnosis Malignant neoplasm of lower lobe of right lung (HCC)- Primary documented in this encounter [facility] [place] [facility]* Diagnosis Malignant neoplasm of lower lobe of right lung (HCC)- Primary documented in this encounter [facility] [place] [facility]* Diagnosis Malignant neoplasm of lower lobe of right lung (HCC)- Primary documented in this [facility] [place] [facility]* Diagnosis Pacemaker- [place]- Primary Cardiac pacemaker in situ documented in this encounter [facility] [place] [facility]* Diagnosis AV block- Primary Unspecified atrioventricular block Pacemaker Cardiac pacemaker in situ Squamous cell carcinoma of lung, unspecified laterality (CMS-HCC) documented in this encounter [facility] [place] [facility]* Diagnosis Malignant neoplasm of lower lobe of right lung (HCC)- Primary documented in this encounter [facility] [place] [facility]* Diagnosis Malignant neoplasm of lower lobe of right lung (HCC)- Primary [facility]* Diagnosis Malignant neoplasm of lower lobe of right lung (HCC)- Primary Dehydration Dehydration- Primary documented in this encounter [facility] [place] [facility]* Diagnosis Dehydration- Primary Dehydration- Primary documented in this encounter [facility] [place] [facility]* Diagnosis Malignant [...] and sinuses documented in this encounter [facility] [...] encounter Other fatigue documented in this encounter [facility]* Diagnosis Weakness- Primary Other malaise and fatigue Adverse effect of antineoplastic and immunosuppressive drugs, initial encounter Other fatigue documented in this encounter [facility] HealthcareEvaluation note* Diagnosis Pacemaker- [place]- Primary Cardiac pacemaker in situ [facility] Diagnosis Weakness- Primary Other malaise and fatigue Adverse effect of antineoplastic and immunosuppressive drugs, initial encounter Other fatigue documented in this encounter [facility] HealthcareEvaluation note* Diagnosis Weakness- Primary Other malaise and fatigue Adverse effect of antineoplastic and immunosuppressive drugs, initial encounter Other fatigue documented in this encounter [facility] HealthcareHospital course Narrative No data available for this section [facility] Hospital Discharge instructions No data available for this section [facility] InstructionsNot on filedocumented in this encounter [...] available for this section [facility] reason for referral (narrative)No reason for referral information availableUniversity Hospitals [facility] Work Phone: Reason for visit Narrative* Auth/Cert (Routine) Specialty Diagnoses / Procedures Referred By Beti montile Referred To Contact ADMITTING 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] Procedures [facility] INCL FLUOR GDNCE DX W/CELL WASHG SPX BRONCHOSCOPY FLEXIBLE ADULT Admitting [address] [place] [address] Referral ID Status Reason Start Date Expiration Date Visits Re quested Visits Authorized [id number] 1 1 [facility] for visit Narrative* Outpatient Procedure (Urgent) - Closed Specialty Diagnoses / Procedures Referred By Beti montiel Referred To Contact [facility] Diagnoses Pre-op testing Procedures ECG COMPLETE ECG ROUTINE ECG W/LEAST 12 LDS W/I&R Maryuri Lowery MD [address] [place] [address] Phone: tel: fax: [facility] [address] [place] [address] Referral ID Status Reason Start Date Expiration Date V isits Requested Visits Authorized [id number] Closed Auto-Generate d Referral 11/03/2024 06/13/2025 1 1 [facility] for visit Narrative* [place] Prior Authorization (Routine) - Authorized Specialty Diagnoses / Procedures Referred By Beti montiel Referred To Contact Diagnoses Malignant neoplasm of lower lobe of right lung (HCC) Rasheed Perez MD [address] [facility] [place] [address] Phone: tel: fax: Hematology/Oncology [address] [place] [address] [place] [address] Phone: tel: fax: Referral ID Status Reason Start Date Expiration Date V isits Requested Visits Authorized [id number] Authorized 11/27/2024 02/25/2025 1 99 [facility] for visit Narrative* [place] Prior Authorization (Routine) - Authorized Specialty Diagnoses / Procedures Referred By Contac t Referred To Contact Diagnoses Malignant neoplasm of lower lobe of right lung (HCC) Procedures ETOPOSIDE 10 MG INJ CISPLATIN 10 MG INJECTION PALONOSETRON HCL FOSAPREPITANT INJECTION Rasheed Perez MD [address] [facility] [place] [address] Phone: tel: fax: Hematology/Oncology [address] [facility] [address] [place] [id number] Phone: tel: fax: Referral ID Status Reason Start Date Expiration Date V isits Requested Visits Authorized [id number] Authorized 01/08/2025 06/13/2025 99 99 [facility] for visit Narrative* [place] Prior Authorization (Routine) - Authorized Specialty Diagnoses / Procedures Referred By Contac t Referred To Contact Diagnoses Malignant neoplasm of lower lobe of right lung (HCC) Procedures ETOPOSIDE 10 MG INJ CISPLATIN 10 MG INJECTION PALONOSETRON HCL FOSAPREPITANT INJECTION Rasheed Perez MD [address] [place] [address] [address] [place] [id number] Phone: tel: fax: Hematology/Oncology [address] [place] [address] [address] [place] [id number] Phone: tel: fax: Referral ID Status Reason Start Date Expiration Date V isits Requested Visits Authorized [id number] Authorized 01/08/2025 06/13/2025 99 99 [facility] for visit Narrative* Rehabilitation - Outpatient (Routine) - Authorized Specialty Diagnoses / Procedures Referred By Contac t Referred To Contact Physical Therapy Diagnoses Other fatigue Adverse effect of antineoplastic and immunosuppressive drugs, initial encounter Weakness Procedures OK PHYSICAL THERAPY EVALUATION LOW COMPLEX 20 MINS Rasheed Perez MD [address] [place] [address] Phone: tel: fax: Terra Rashid PT Referral ID Status Reason Start Date Expiration Date Visits Requested Visits Authorized [id number] Authorized Consult and Treat 03/07/2025 09/03/2025 99 99 [facility] for [facility] Narrative* Rehabilitation - Outpatient (Routine) - Authorized Specialty Diagnoses / Procedures Referred By Contac t Referred To Contact Physical Therapy Diagnoses Other fatigue 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 2024 11:24am Chief Complaint Admit Date consistent cough (2 months) August 31, 2024 9:38am R05.3 August 31, 2024 10: 00am Wheezing, Shortness of breath, cough [facility] 2024 11:24am Unknown October 16, 2024 [...] content) DATE CREATED AUTHOR 11/20/2022 [facility] DATE CREATED AUTHOR AUTHOR'S ORGANIZ ATION 01/22/2025 [facility] DATE CREATED AUTHOR AUTHOR'S ORGANIZ ATION 02/06/2025 [facility] DATE CREATED AUTHOR AUTHOR'S ORGANIZ ATION 02/11/2025 [facility] DATE CREATED AUTHOR AUTHOR'S ORGANIZ ATION 02/19/2025 [facility] DATE CREATED AUTHOR AUTHOR'S ORGANIZ ATION 03/19/2025 [facility] DATE CREATED AUTHOR AUTHOR'S ORGANIZ ATION 03/24/2025 [facility] dical Specialists [facility] DATE CREATED AUTHOR AUTHOR'S ORGANIZ ATION 04/01/2025 [facility] Patient Care team informatio n (unrecognized section and content) Team Status: Active Member Role Status Dates Carlos Collins SALVAGE ENGINEER-C Primary Care Provider Active Team Status: Inactive Member Role Status Dates Chip Carbajal DO Attending Provider Active St art: October 16, 2024 End: October 16, 2024 Team Status: Active Member Role Status Dates Dominic Ryder PA-C Emergency Provider Active Start: January 02, 2025 Carlos Collins SALVAGE ENGINEER-C Primary Care Provider Active Start: January 02, 2025 Norah Whittaker MD Admit Provider Active Start : January 02, 2025 Norah Wihttaker MD Attending Provider Active S tart: January [...] September 08, 2024 End: September 08, 2024 Physical Education Specialist Relationship Specialty Start Date End Date Doug Bowles PCP - General 02/23/06 Physical Education Specialist Relationship Specialty Start Date End Date Carlos Collins APRN.ABBEY [address] [place] [address] PCP - General Nurse Practitioner 10/27/24 Physical Education Specialist Relationship Specialty Start Date End Date Alina Ragland MD [address] [place] [address] [id number] PCP - General Family Medicine 09/30/20 Physical Education Specialist Relationship Specialty Start Date End Date Carlos Collins, 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.SENIOR WINDOWS ADMINISTRATOR [address] [place], [place] [id number] PCP - General Nurse Practitioner 10/27/24 Physical Education Specialist Relationship Specialty Start Date End Date DennisCarlos mascorro, 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.SENIOR WINDOWS ADMINISTRATOR [address] [place], [place] [id number] PCP - General Nurse Practitioner 10/27/24 Physical Education Specialist Relationship Specialty Start Date End Date DennisCarlos mascorro, 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-SENIOR WINDOWS ADMINISTRATOR [address] [place], [place] [id number] PCP - General Nurse Practitioner 11/08/24 Physical Education Specialist Relationship Specialty Start Date End Date Carlos Collins, 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-SENIOR WINDOWS ADMINISTRATOR [address] [place], [place] [id number] PCP - General Nurse Practitioner 11/08/24 Physical Education Specialist Relationship Specialty Start Date End Date DennisCarlos mascorro, 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.SENIOR WINDOWS ADMINISTRATOR [address] [place], [place] [id number] PCP - General Nurse Practitioner 10/27/24 Physical Education Specialist Relationship Specialty Start Date End Date DennisCarlos mascorro, 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-SENIOR WINDOWS ADMINISTRATOR [address] [place], [place] [id number] PCP - General Nurse Practitioner 11/08/24 Physical Education Specialist Relationship Specialty Start Date End Date DennisCarlos mascorro, 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.SENIOR WINDOWS ADMINISTRATOR [address] [place] [address], [place] [address] PCP - General Nurse Practitioner 10/27/24 Physical Education Specialist Relationship Specialty Start Date End Date Dennis, Carlos L, 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.SENIOR WINDOWS ADMINISTRATOR [address] [place] [address], [place] [address] PCP - General Nurse Practitioner 10/27/24 Physical Education Specialist Relationship Specialty Start Date End Date Dennis, Carlos L, 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.SENIOR WINDOWS ADMINISTRATOR [address] [place] [address], [place] [address] PCP - General Nurse Practitioner 10/27/24 Physical Education Specialist Relationship Specialty Start Date End Date Dennis, Carlos L, 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.SENIOR WINDOWS ADMINISTRATOR [address] [place] [place] [address] PCP - General Nurse Practitioner 10/27/24 Physical Education Specialist Relationship Specialty Start Date End Date Dennis, Carlos L, 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-SENIOR WINDOWS ADMINISTRATOR [address] [place] [address] PCP - General Nurse Practitioner 11/08/24 Physical Education Specialist Relationship Specialty Start Date End Date Dennis, Carlos L, 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-SENIOR WINDOWS ADMINISTRATOR [address] [place] [address] PCP - General Nurse Practitioner 11/08/24 Physical Education Specialist Relationship Specialty Start Date End Date Dennis, Carlos L, 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.SENIOR WINDOWS ADMINISTRATOR [address] [place] [address], [place] [address] PCP - General Nurse Practitioner 10/27/24 Physical Education Specialist Relationship Specialty Start Date End Date Dennis, Carlos L, 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.SENIOR WINDOWS ADMINISTRATOR [address] [place] [place] [address] PCP - General Nurse Practitioner 10/27/24 Physical Education Specialist Relationship Specialty Start Date End Date Dennis, Carlos L, 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.SENIOR WINDOWS ADMINISTRATOR [address] [place] [place] [address] PCP - General Nurse Practitioner 10/27/24 Physical Education Specialist Relationship Specialty Start Date End Date Dennis, Carlos L, 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.SENIOR WINDOWS ADMINISTRATOR [address] [place] [address] PCP - General Nurse Practitioner 10/27/24 Physical Education Specialist Relationship Specialty Start Date End Date Dennis, Carlos L, 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.SENIOR WINDOWS ADMINISTRATOR [address] [place] [place] [address] PCP - General Nurse Practitioner 10/27/24 Physical Education Specialist Relationship Specialty Start Date End Date Dennis, Carlos L, 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.SENIOR WINDOWS ADMINISTRATOR [address] [place] [address], [place] [address] PCP - General Nurse Practitioner 10/27/24 Physical Education Specialist Relationship Specialty Start Date End Date Dennis, Carlos L, 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.SENIOR WINDOWS ADMINISTRATOR [address] [place] [address], [place] [address] PCP - General Nurse Practitioner 10/27/24 Physical Education Specialist Relationship Specialty Start Date End Date Dennis, Carlos L, 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.SENIOR WINDOWS ADMINISTRATOR [address] [place] [address], [place] [address] PCP - General Nurse Practitioner 10/27/24 Blanquita Hargrove, RN [address] [place] [address] Specialty Customs Opener Verifier Packer Hematology/Oncology 11/29/24 Rasheed Perez MD [address] [place] [address] Physician Hematology/Oncology 11/29/24 Physical Education Specialist Relationship Specialty Start Date End Date Carlos Collins, 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.SENIOR WINDOWS ADMINISTRATOR [address] [place] [address] PCP - General Nurse Practitioner 10/27/24 Physical Education Specialist Relationship Specialty Start Date End Date Carlos Collins, 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-SENIOR WINDOWS ADMINISTRATOR [address] [place] [address] 48901 PCP - General Nurse Practitioner 11/08/24 Physical Education Specialist Relationship Specialty Start Date End Date Carlos Collins, 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-SENIOR WINDOWS ADMINISTRATOR [address] [place] [address] 6[address] PCP - General Nurse Practitioner 11/08/24 Physical Education Specialist Relationship Specialty Start Date End Date Carlos Collins, 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.SENIOR WINDOWS ADMINISTRATOR [address] [place] [address] PCP - General Nurse Practitioner 10/27/24 Blanquita Hargrove RN [address] [facility] [place] [address] Specialty Customs Opener Verifier Packer Hematology/Oncology 11/29/24 Rasheed Perez MD [address] [place] [address] [place] [address] Physician Hematology/Oncology 11/29/24 Physical Education Specialist Relationship Specialty Start Date End Date Carlos Collins, 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.SENIOR WINDOWS ADMINISTRATOR [address] [place] [place] [address] PCP - General Nurse Practitioner 10/27/24 Blanquita Hargrove RN [address] [facility] [place] [address] Specialty Customs Opener Verifier Packer Hematology/Oncology 11/29/24 Rasheed Perez MD [address] [facility] [place] [address] Physician Hematology/Oncology 11/29/24 Physical Education Specialist Relationship Specialty Start Date End Date Carlos Collins, 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.SENIOR WINDOWS ADMINISTRATOR [address] [place] [address] PCP - General Nurse Practitioner 10/27/24 Blanquita Hargrove RN [address] [facility] [place] [address] Specialty Customs Opener Verifier Packer Hematology/Oncology 11/29/24 Rasheed Perez MD [address] [facility] [place] [address] Physician Hematology/Oncology 11/29/24 Physical Education Specialist Relationship Specialty Start Date End Date Carlos Collins, 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.SENIOR WINDOWS ADMINISTRATOR [facility] [place] [address] PCP - General Nurse Practitioner 10/27/24 Blanquita Hargrove RN [address] [facility] [place] [address] Specialty Customs Opener Verifier Packer Hematology/Oncology 11/29/24 Rasheed Perez MD [address] [facility] [place] [address] Physician Hematology/Oncology 11/29/24 Physical Education Specialist Relationship Specialty Start Date End Date Carlos Collins, 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.SENIOR WINDOWS ADMINISTRATOR [address] [place] [address] PCP - General Nurse Practitioner 10/27/24 Blanquita Hargrove RN [address] [facility] [place] [address] Specialty Customs Opener Verifier Packer Hematology/Oncology 11/29/24 Rasheed Perez MD [address] [facility] [place] [address] Physician Hematology/Oncology 11/29/24 Physical Education Specialist Relationship Specialty Start Date End Date Carlos Collins 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.SENIOR WINDOWS ADMINISTRATOR [facility] [place] [address] PCP - General Nurse Practitioner 10/27/24 Blanquita Hargrove, PRITI [address] [facility] [place] [address] Specialty Customs Opener Verifier Packer Hematology/Oncology 11/29/24 Rasheed Perez MD [address] [facility] [place] [address] Physician Hematology/Oncology 11/29/24 Physical Education Specialist Relationship Specialty Start Date End Date Carlos Collins 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.SENIOR WINDOWS ADMINISTRATOR [facility] [place] [address] PCP - General Nurse Practitioner 10/27/24 Blanquita Hargrove, RN [address] [facility] [place] [address] Specialty Customs Opener Verifier Packer Hematology/Oncology 11/29/24 Rasheed Perez MD [address] [facility] [place] [address] Physician Hematology/Oncology 11/29/24 Physical Education Specialist Relationship Specialty Start Date End Date Carlos Collins 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.SENIOR WINDOWS ADMINISTRATOR [address] [place] [address] PCP - General Nurse Practitioner 10/27/24 Physical Education Specialist Relationship Specialty Start Date End Date Carlos Collins, 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.SENIOR WINDOWS ADMINISTRATOR [address] [place] [address] PCP - General Nurse Practitioner 10/27/24 Blanquita Hargrove, PRITI [address] [facility] [place] [address] Specialty Customs Opener Verifier Packer Hematology/Oncology 11/29/24 Rasheed Perez MD [address] [facility] [place] [address] Physician Hematology/Oncology 11/29/24 Physical Education Specialist Relationship Specialty Start Date End Date Carlos Collins 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.SENIOR WINDOWS ADMINISTRATOR [facility] [place] [address] PCP - General Nurse Practitioner 10/27/24 Blanquita Hargrove RN [address] [facility] [place] [address] Specialty Customs Opener Verifier Packer Hematology/Oncology 11/29/24 Rasheed Perez MD [address] [facility] [place] [address] Physician Hematology/Oncology 11/29/24 Physical Education Specialist Relationship Specialty Start Date End Date Carlos Collins, 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.SENIOR WINDOWS ADMINISTRATOR [facility] [place] [facility] [place] [address] PCP - General Nurse Practitioner 10/27/24 Blanquita Hargrove RN [address] [facility] [place] [address] Specialty Customs Opener Verifier Packer Hematology/Oncology 11/29/24 Rasheed Perez MD [address] [facility] [place] [address] Physician Hematology/Oncology 11/29/24 Physical Education Specialist Relationship Specialty Start Date End Date Carlos Collins, 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.SENIOR WINDOWS ADMINISTRATOR [address] [place] [address] PCP - General Nurse Practitioner 10/27/24 Blanquita Hargrove, RN [address] [facility] [place] [address] Specialty Customs Opener Verifier Packer Hematology/Oncology 11/29/24 Rasheed Perez MD [address] [place] [address] Physician Hematology/Oncology 11/29/24 Physical Education Specialist Relationship Specialty Start Date End Date Carlos Collins, 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.SENIOR WINDOWS ADMINISTRATOR [facility] [place] [address] PCP - General Nurse Practitioner 10/27/24 Blanquita Hargrove RN [address] [facility] [place] [address] Specialty Customs Opener Verifier Packer Hematology/Oncology 11/29/24 Rasheed Perez MD [address] [facility] [place] [address] Physician Hematology/Oncology 11/29/24 Physical Education Specialist Relationship Specialty Start Date End Date Carlos Collins, 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.SENIOR WINDOWS ADMINISTRATOR [facility] [place] [facility] [place] [address] PCP - General Nurse Practitioner 10/27/24 Blanquita Hargrove, PRITI [address] [facility] [place] [address] Specialty Customs Opener Verifier Packer Hematology/Oncology 11/29/24 Rasheed Perez MD [address] [place] [address] Physician Hematology/Oncology 11/29/24 Physical Education Specialist Relationship Specialty Start Date End Date Carlos Collins, 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.SENIOR WINDOWS ADMINISTRATOR [address] [place] [address] PCP - General Nurse Practitioner 10/27/24 Blanquita Hargrove, PRITI [address] [facility] [place] [address] Specialty Customs Opener Verifier Packer Hematology/Oncology 11/29/24 Rasheed Perez MD [address] [place] [address] Physician Hematology/Oncology 11/29/24 Physical Education Specialist Relationship Specialty Start Date End Date Carlos Collins, 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.SENIOR WINDOWS ADMINISTRATOR [facility] [place] [address] PCP - General Nurse Practitioner 10/27/24 Blanquita Hargrove RN [address] [facility] [place] [address] Specialty Customs Opener Verifier Packer Hematology/Oncology 11/29/24 Rasheed Perez MD [address] [facility] [place] [address] Physician Hematology/Oncology 11/29/24 Physical Education Specialist Relationship Specialty Start Date End Date Carlos Collins, 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.SENIOR WINDOWS ADMINISTRATOR [address] [place] [address] PCP - General Nurse Practitioner 10/27/24 Blanquita Hargrove RN [address] [place] [address] Specialty Customs Opener Verifier Packer Hematology/Oncology 11/29/24 Rasheed Perez MD [address] [facility] [place] [address] Physician Hematology/Oncology 11/29/24 Physical Education Specialist Relationship Specialty Start Date End Date Carlos Collins APRN.SENIOR WINDOWS ADMINISTRATOR [address] [place] [place] [address] PCP - General Nurse Practitioner 10/27/24 Blanquita Hargrove RN [address] [facility] [place] [address] Specialty Customs Opener Verifier Packer Hematology/Oncology 11/29/24 Rasheed Perez MD [address] [facility] [place] [address] Physician Hematology/Oncology 11/29/24 Physical Education Specialist Relationship Specialty Start Date End Date Carlos Collins APRN.SENIOR WINDOWS ADMINISTRATOR [address] [place] [place] [address] PCP - General Nurse Practitioner 10/27/24 Blanquita Hargrove RN [address] [facility] [place] [address] Specialty Customs Opener Verifier Packer Hematology/Oncology 11/29/24 Rasheed ePrez MD [address] [facility] [place] [address] Physician Hematology/Oncology 11/29/24 Team Status: Inactive Member [...] January 02, 2025 End: January 06, 2025 Physical Education Specialist Relationship Specialty Start Date End Date Carlos Collins APRN.SENIOR WINDOWS ADMINISTRATOR [address] [place] [place] [address] PCP - General Nurse Practitioner 10/27/24 Blanquita Hargrove, RN [address] [facility] [place] [address] Specialty Customs Opener Verifier Packer Hematology/Oncology 11/29/24 Rasheed Perez MD [address] [facility] [place] [address] Physician Hematology/Oncology 11/29/24 Annel Alas LSW Tower Erector Helper 01/08/25 Physical Education Specialist Relationship Specialty Start Date End Date Carlos Collins 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-SENIOR WINDOWS ADMINISTRATOR [address] [place] [address] 41418 PCP - General Nurse Practitioner 11/08/24 Physical Education Specialist Relationship Specialty Start Date End Date Carlos Collins, 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.SENIOR WINDOWS ADMINISTRATOR [address] [place] [place] [address] 11300 PCP - General Nurse Practitioner 10/27/24 Blanquita Hargrove, RN [address] [facility] [place] [address] Specialty Customs Opener Verifier Packer Hematology/Oncology 11/29/24 Rasheed Perez MD [address] [place] [address] [place] [address] Physician Hematology/Oncology 11/29/24 Annel Alas LSW Tower Erector Helper 01/08/25 Physical Education Specialist Relationship Specialty Start Date End Date Carlos Collins 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-SENIOR WINDOWS ADMINISTRATOR [address] [place] [address] 14066 PCP - General Nurse Practitioner 11/08/24 Physical Education Specialist Relationship Specialty Start Date End Date Carlos Collins, 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.SENIOR WINDOWS ADMINISTRATOR [address] [place] [place] [address]54 PCP - General Nurse Practitioner 10/27/24 Blanquita Hargrove, RN [address] [facility] [place] [address] Specialty Customs Opener Verifier Packer Hematology/Oncology 11/29/24 Rasheed Perez MD [address] [facility] [place] [address] Physician Hematology/Oncology 11/29/24 Annel Alas LSW Tower Erector Helper 01/08/25 Physical Education Specialist Relationship Specialty Start Date End Date Carlos Collins, 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.SENIOR WINDOWS ADMINISTRATOR [address] [place] [place] [address] 40981 PCP - General Nurse Practitioner 10/27/24 Blanquita Hargrove RN [address] [facility] [place] [address] Specialty Customs Opener Verifier Packer Hematology/Oncology 11/29/24 Rasheed Perez MD [address] [facility] [place] [address] Physician Hematology/Oncology 11/29/24 Annel Alas LSW Tower Erector Helper 01/08/25 Physical Education Specialist Relationship Specialty Start Date End Date Carlos Collins, 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.SENIOR WINDOWS ADMINISTRATOR [address] [place] [place] [address] 58382 PCP - General Nurse Practitioner 10/27/24 Blanquita Hargrove RN [address] [facility] [place] [address] Specialty Customs Opener Verifier Packer Hematology/Oncology 11/29/24 Rasheed Perez MD [address] [facility] [place] [address] Physician Hematology/Oncology 11/29/24 Annel Alas LSW Tower Erector Helper 01/08/25 Physical Education Specialist Relationship Specialty Start Date End Date Carlos Collins, 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.SENIOR WINDOWS ADMINISTRATOR [facility] [place] [address] PCP - General Nurse Practitioner 10/27/24 Blanquita Hargrove, RN [address] [facility] [place] [address] Specialty Customs Opener Verifier Packer Hematology/Oncology 11/29/24 Rasheed Perez MD [address] [facility] [place] [address] Physician Hematology/Oncology 11/29/24 Annel Alas LSW Tower Erector Helper 01/08/25 Physical Education Specialist Relationship Specialty Start Date End Date Carlos Collins, 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.SENIOR WINDOWS ADMINISTRATOR [address] [place] [address] 8[address] PCP - General Nurse Practitioner 10/27/24 Blanquita Hargrove RN [address] [facility] [place] [address] Specialty Customs Opener Verifier Packer Hematology/Oncology 11/29/24 Rasheed Perez MD [address] [facility] [place] [address] Physician Hematology/Oncology 11/29/24 Annel Alas LSW Tower Erector Helper 01/08/25 Physical Education Specialist Relationship Specialty Start Date End Date Carlos Collins, 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.SENIOR WINDOWS ADMINISTRATOR [address] [place] [address] PCP - General Nurse Practitioner 10/27/24 Blanquita Hargrove RN [address] [facility] [address] [place] Specialty Customs Opener Verifier Packer Hematology/Oncology 11/29/24 Rasheed Perez MD [address] [facility] [place] [address] Physician Hematology/Oncology 11/29/24 Annel Alas, BUSINESS LAW PROFESSOR Tower Erector Helper 01/08/25 Physical Education Specialist Relationship Specialty Start Date End Date Carlos Collins, 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.SENIOR WINDOWS ADMINISTRATOR [address] [place] [address] PCP - General Nurse Practitioner 10/27/24 Blanquita Hargrove RN [address] [facility] [place] [address] Specialty Customs Opener Verifier Packer Hematology/Oncology 11/29/24 Rasheed Perez MD [address] [facility] [place] [address] Physician Hematology/Oncology 11/29/24 Annel Alas LSW Tower Erector Helper 01/08/25 Physical Education Specialist Relationship Specialty Start Date End Date Carlos Collins, 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.SENIOR WINDOWS ADMINISTRATOR [address] [place] [address] PCP - General Nurse Practitioner 10/27/24 Blanquita Hargrove RN [address] [facility] [place] [address] Specialty Customs Opener Verifier Packer Hematology/Oncology 11/29/24 Rasheed Perez MD [address] [facility] [place] [address] Physician Hematology/Oncology 11/29/24 Annel Alas, BUSINESS LAW PROFESSOR Tower Erector Helper 01/08/25 Physical Education Specialist Relationship Specialty Start Date End Date Carlos Collins, 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.SENIOR WINDOWS ADMINISTRATOR [address] [place] [address] PCP - General Nurse Practitioner 10/27/24 Blanquita Hargrove, PRITI [address] [facility] [place] [address] Specialty Customs Opener Verifier Packer Hematology/Oncology 11/29/24 Rasheed Perez MD [address] [facility] [place] [address] Physician Hematology/Oncology 11/29/24 Annel Alas LSW Tower Erector Helper 01/08/25 Physical Education Specialist Relationship Specialty Start Date End Date Carlos Collins, 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.SENIOR WINDOWS ADMINISTRATOR [address] [place], [place] [address] PCP - General Nurse Practitioner 10/27/24 Blanquita Hargrove RN [address] [facility] [place] [address] Specialty Customs Opener Verifier Packer Hematology/Oncology 11/29/24 Rasheed Perez MD [address] [facility] [place] [address] Physician Hematology/Oncology 11/29/24 Annel Alas LSW Tower Erector Helper 01/08/25 Physical Education Specialist Relationship Specialty Start Date End Date Carlos Collins, 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.SENIOR WINDOWS ADMINISTRATOR [address] [place] [address] PCP - General Nurse Practitioner 10/27/24 Blanquita Hargrove RN [address] [facility] [place] [address] Specialty Customs Opener Verifier Packer Hematology/Oncology 11/29/24 Rasheed Perez MD [address] [facility] [place] [address] Physician Hematology/Oncology 11/29/24 Annel Alas LSW Tower Erector Helper 01/08/25 Team Status: Active Member Role Status Dates Carlos Collins SALVAGE ENGINEER-C Primary Care Provider Active Start: January 15, 2025 Angelica Lawler DO Emergency Provider Active St art: January 15, 2025 Hayes Olivarez DO Admit Provider Active Start: January 15, 2025 Hayes Olivarez DO Attending Provider Active St art: January 15, 2025 Physical Education Specialist Relationship Specialty Start Date End Date Carlos Collins APRN.[facility] [address] [place] [address] PCP - General Nurse Practitioner 10/27/24 Blanquita Hargrove RN [address] [place] [address] [place] [address] Specialty Customs Opener Verifier Packer Hematology/Oncology 11/29/24 Rasheed Perez MD [address] [place] [address] [place] [address] Physician Hematology/Oncology 11/29/24 Annel Alas LSW Tower Erector Helper 01/08/25 Team Status: Active Member Role Status Dates Carlos Collins SALVAGE ENGINEER-C Primary Care Provider Active Start: January 15, [...] Active Start: A ug2024 Elise Ayala , [place] [facility]- Other Provider Active Sta rt: January 15, 2025 Shane Altamirano , DO Other Provider Active Start: January 15, 2025 Shannan Ramirez , 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 Other Provider Active Start: January 15, 2025 Amarilys Jones , DO Other Provider Active Sta rt: January 15, 2025 Neftali Motley , DO FELLOW Other Provider Active Start: January 15, 2025 Ari Locke , DO FELLOW Other Provider Active S tart: January 15, 2025 Cristina Luis APRN [facility]- Other Provider Active Start: January [...] Active Member Role Status Dates Carlos Collins SALVAGE ENGINEER-C Primary Care Provider Active Start: January 16, [...] Start: A ugust 2024 Elise Ayala , [facility] Other Provider Active Sta rt: January 16, 2025 Philippe Epps MD Attending Provider Active Start: January 16, 2025 Physical Education Specialist Relationship Specialty Start Date End Date Carlos Clolins, 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.SENIOR WINDOWS ADMINISTRATOR [address] [place] [place] [id number] PCP - General Nurse Practitioner 10/27/24 Blanquita Hargrove RN [address] [facility] [place] [address] Specialty Customs Opener Verifier Packer Hematology/Oncology 11/29/24 Rasheed Peerz MD [address] [place] [address] [place] [address] Physician Hematology/Oncology 11/29/24 Annel Alas LSW Tower Erector Helper 01/08/25 Physical Education Specialist Relationship Specialty Start Date End Date Carlos Collins, 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.SENIOR WINDOWS ADMINISTRATOR [address] [place] [address]05 PCP - General Nurse Practitioner 10/27/24 Blanquita Hargrove RN [address] [facility] [place] [address] Specialty Customs Opener Verifier Packer Hematology/Oncology 11/29/24 Rasheed Perez MD [address] [facility] [place] [address] Physician Hematology/Oncology 11/29/24 Annel Alas, CHRISTEL Tower Erector Helper 01/08/25 Ricardo Alva, PRITI Specialty Customs Opener Verifier Packer Hospice & Palliative Medicine 01/23/25 Sheila Freeman, 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.SENIOR WINDOWS ADMINISTRATOR [address] [facility] [place] [phone] Hospice & Palliative Medicine 01/23/25 Physical Education Specialist Relationship Specialty Start Date End Date Carlos Collins, 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.SENIOR WINDOWS ADMINISTRATOR [address] [place] [phone] PCP - General Nurse Practitioner 10/27/24 Blanquita Hargrove, RN [address] [facility] [place] [address] Specialty Customs Opener Verifier Packer Hematology/Oncology 11/29/24 Rasheed Perez MD [address] [place] [address] [place] [address] Physician Hematology/Oncology 11/29/24 Annel Alas LSW Tower Erector Helper 01/08/25 Ricardo Alva RN Specialty Customs Opener Verifier Packer Hospice & Palliative Medicine 01/23/25 Sheila Freeman, 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.SENIOR WINDOWS ADMINISTRATOR [address] [facility] [place] [phone] Hospice & Palliative Medicine 01/23/25 Physical Education Specialist Relationship Specialty Start Date End Date Carlos Collins, 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.SENIOR WINDOWS ADMINISTRATOR [address] [place] [address] 33767 PCP - General Nurse Practitioner 10/27/24 Blanquita Hargrove RN [address] [facility] [place] [address] Specialty Customs Opener Verifier Packer Hematology/Oncology 11/29/24 Rasheed Perez MD [address] [facility] [place] [address] Physician Hematology/Oncology 11/29/24 Annel Alas, BUSINESS LAW PROFESSOR Tower Erector Helper 01/08/25 Ricardo Alva RN Specialty Customs Opener Verifier Packer Hospice & Palliative Medicine 01/23/25 Sheila Freeman, 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.SENIOR WINDOWS ADMINISTRATOR [address] [facility] [place] [address] Hospice & Palliative Medicine 01/23/25 Physical Education Specialist Relationship Specialty Start Date End Date Carlos Collins 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.SENIOR WINDOWS ADMINISTRATOR [address] [place] [place] [address] 24728 PCP - General Nurse Practitioner 10/27/24 Blanquita Hargrove RN [address] [facility] [place] [address] Specialty Customs Opener Verifier Packer Hematology/Oncology 11/29/24 Rasheed Perez MD [address] [facility] [place] [address] Physician Hematology/Oncology 11/29/24 Annel Alas, BUSINESS LAW PROFESSOR Tower Erector Helper 01/08/25 Ricardo Alva, RN Specialty Customs Opener Verifier Packer Hospice & Palliative Medicine 01/23/25 Sheila Freeman, 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.SENIOR WINDOWS ADMINISTRATOR [address] [facility] [phone] Hospice & Palliative Medicine 01/23/25 Physical Education Specialist Relationship Specialty Start Date End Date Carlos Collins, 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.SENIOR WINDOWS ADMINISTRATOR [address] [place] [address] [phone] PCP - General Nurse Practitioner 10/27/24 Blanquita Hargrove RN [address] [facility] [place] [address] Specialty Customs Opener Verifier Packer Hematology/Oncology 11/29/24 Rasheed Perez MD [address] [facility] [place] [address] Physician Hematology/Oncology 11/29/24 Annel Alas, BUSINESS LAW PROFESSOR Tower Erector Helper 01/08/25 Ricardo Alva, RN Specialty Customs Opener Verifier Packer Hospice & Palliative Medicine 01/23/25 Sheila Freeman, 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.SENIOR WINDOWS ADMINISTRATOR [address] [facility] [place] [phone] Hospice & Palliative Medicine 01/23/25 Physical Education Specialist Relationship Specialty Start Date End Date Carlos Collins 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.SENIOR WINDOWS ADMINISTRATOR [facility] [place] [address] PCP - General Nurse Practitioner 10/27/24 Blanquita Hargrove RN [address] [facility] [place] [address] Specialty Customs Opener Verifier Packer Hematology/Oncology 11/29/24 Rasheed Perez MD [address] [facility] [place] [address] Physician Hematology/Oncology 11/29/24 Annel Alas, BUSINESS LAW PROFESSOR Tower Erector Helper 01/08/25 Ricardo Alva RN Specialty Customs Opener Verifier Packer Hospice & Palliative Medicine 01/23/25 Sheila Freeman, 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.SENIOR WINDOWS ADMINISTRATOR [address] [facility] [place] [phone] Hospice & Palliative Medicine 01/23/25 Physical Education Specialist Relationship Specialty Start Date End Date Carlos Collins, 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.SENIOR WINDOWS ADMINISTRATOR [address] [place] [address] PCP - General Nurse Practitioner 10/27/24 Blanquita Hargrove, PRITI [address] [facility] [place] [address] Specialty Customs Opener Verifier Packer Hematology/Oncology 11/29/24 Rasheed Perez MD [address] [facility] [place] [address] Physician Hematology/Oncology 11/29/24 Annel Alas, BUSINESS LAW PROFESSOR Tower Erector Helper 01/08/25 Ricardo Alva, RN Specialty Customs Opener Verifier Packer Hospice & Palliative Medicine 01/23/25 Sheila Freeman, 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.SENIOR WINDOWS ADMINISTRATOR [address] [place] [address] [place] [phone] Hospice & Palliative Medicine 01/23/25 Physical Education Specialist Relationship Specialty Start Date End Date Carlos Collins, 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.SENIOR WINDOWS ADMINISTRATOR [address] [place] [address] 44288 PCP - General Nurse Practitioner 10/27/24 Blanquita Hargrove, PRITI [address] [facility] [place] [address] Specialty Customs Opener Verifier Packer Hematology/Oncology 11/29/24 Rasheed Perez MD [address] [place] [address] [place] [address] Physician Hematology/Oncology 11/29/24 Annel Alas, BUSINESS LAW PROFESSOR Tower Erector Helper 01/08/25 Ricardo Alva RN Specialty Customs Opener Verifier Packer Hospice & Palliative Medicine 01/23/25 Sheila Freeman, 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.SENIOR WINDOWS ADMINISTRATOR [address] [facility] [place] [phone] Hospice & Palliative Medicine 01/23/25 Physical Education Specialist Relationship Specialty Start Date End Date Carlos Collins, 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.SENIOR WINDOWS ADMINISTRATOR [address] [place] [address]706 PCP - General Nurse Practitioner 10/27/24 Blanquita Hargrove RN [address] [facility] [place] [address] Specialty Customs Opener Verifier Packer Hematology/Oncology 11/29/24 Rasheed Perez MD [address] [place] [address] [place] [address] Physician Hematology/Oncology 11/29/24 Annel Alas, BUSINESS LAW PROFESSOR Tower Erector Helper 01/08/25 Ricardo Alva RN Specialty Customs Opener Verifier Packer Hospice & Palliative Medicine 01/23/25 Sheila Freeman, 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.SENIOR WINDOWS ADMINISTRATOR [address] [place] [address] [place] [address] Hospice & Palliative Medicine 01/23/25 Physical Education Specialist Relationship Specialty Start Date End Date Carlos Collins, 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.SENIOR WINDOWS ADMINISTRATOR [address] [place] [address]324 PCP - General Nurse Practitioner 10/27/24 Blanquita Hargrove RN [address] [facility] [place] [address] Specialty Customs Opener Verifier Packer Hematology/Oncology 11/29/24 Rasheed Perez MD [address] [place] [address] [place] [address] Physician Hematology/Oncology 11/29/24 Annel Alas, BUSINESS LAW PROFESSOR Tower Erector Helper 01/08/25 Ricardo Alva RN Specialty Customs Opener Verifier Packer Hospice & Palliative Medicine 01/23/25 Sheila Freeman 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.SENIOR WINDOWS ADMINISTRATOR [address] [facility] [place] [phone] Hospice & Palliative Medicine 01/23/25 Physical Education Specialist Relationship Specialty Start Date End Date Carlos Collins, 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.SENIOR WINDOWS ADMINISTRATOR [facility] [place] [address] PCP - General Nurse Practitioner 10/27/24 Blanquita Hargrove, RN [address] [facility] [place] [address] Specialty Customs Opener Verifier Packer Hematology/Oncology 11/29/24 Rasheed Perez MD [address] [facility] [place] [address] Physician Hematology/Oncology 11/29/24 Annel Alas LSW Tower Erector Helper 01/08/25 Ricardo Alva RN Specialty Customs Opener Verifier Packer Hospice & Palliative Medicine 01/23/25 Sheila Freeman, 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.SENIOR WINDOWS ADMINISTRATOR [address] [facility] [place] [phone] Hospice & Palliative Medicine 01/23/25 Physical Education Specialist Relationship Specialty Start Date End Date Carlos Collins, 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.SENIOR WINDOWS ADMINISTRATOR [address] [place] [address] 9[address]28 PCP - General Nurse Practitioner 10/27/24 Blanquita Hargrove, RN [address] [facility] [place] [address] Specialty Customs Opener Verifier Packer Hematology/Oncology 11/29/24 Rasheed Perez MD [address] [facility] [place] [address] Physician Hematology/Oncology 11/29/24 Annel Alas, CHRISTEL Tower Erector Helper 01/08/25 Ricardo Alva RN Specialty Customs Opener Verifier Packer Hospice & Palliative Medicine 01/23/25 Sheila Freeman, 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.SENIOR WINDOWS ADMINISTRATOR [address] [facility] [place] [address] Hospice & Palliative Medicine 01/23/25 Physical Education Specialist Relationship Specialty Start Date End Date Carlos Collins, 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.SENIOR WINDOWS ADMINISTRATOR [address] [place] [address] PCP - General Nurse Practitioner 10/27/24 Blanquita Hargrove, RN [address] [facility] [place] [address] Specialty Customs Opener Verifier Packer Hematology/Oncology 11/29/24 Rasheed Perez MD [address] [place] [address] [place] [address] Physician Hematology/Oncology 11/29/24 Annel Alas LSW Tower Erector Helper 01/08/25 Ricardo Alva RN Specialty Customs Opener Verifier Packer Hospice & Palliative Medicine 01/23/25 Sheila Freeman, 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.SENIOR WINDOWS ADMINISTRATOR [address] [facility] [place] [phone] Hospice & Palliative Medicine 01/23/25 Physical Education Specialist Relationship Specialty Start Date End Date Carlos Collins, 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.SENIOR WINDOWS ADMINISTRATOR [facility] [place] [address] PCP - General Nurse Practitioner 10/27/24 Blanquita Hargrove RN [address] [facility] [place] [place] [address] Specialty Customs Opener Verifier Packer Hematology/Oncology 11/29/24 Rasheed Perez MD [address] [facility] [place] [address] Physician Hematology/Oncology 11/29/24 Annel Alas, BUSINESS LAW PROFESSOR Tower Erector Helper 01/08/25 Ricardo Alva RN Specialty Customs Opener Verifier Packer Hospice & Palliative Medicine 01/23/25 Sheila Freeman, 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.SENIOR WINDOWS ADMINISTRATOR [address] [facility] [place] [address] Hospice & Palliative Medicine 01/23/25 Physical Education Specialist Relationship Specialty Start Date End Date Carlos Collins, 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.SENIOR WINDOWS ADMINISTRATOR [address] [place] [address]996 PCP - General Nurse Practitioner 10/27/24 Blanquita Hargrove RN [address] [facility] [place] [address] Specialty Customs Opener Verifier Packer Hematology/Oncology 11/29/24 Rasheed Perez MD [address] [facility] [place] [address] Physician Hematology/Oncology 11/29/24 Annel Alas, BUSINESS LAW PROFESSOR Tower Erector Helper 01/08/25 Ricardo Alva RN Specialty Customs Opener Verifier Packer Hospice & Palliative Medicine 01/23/25 Sheila Freeman, 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.SENIOR WINDOWS ADMINISTRATOR [address] [facility] [place] [place] [address] Hospice & Palliative Medicine 01/23/25 Physical Education Specialist Relationship Specialty Start Date End Date Carlos Collins, 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.SENIOR WINDOWS ADMINISTRATOR [address] [place] [address]14 PCP - General Nurse Practitioner 10/27/24 Blanquita Hargrove RN [address] [facility] [place] [address] Specialty Customs Opener Verifier Packer Hematology/Oncology 11/29/24 Rasheed Perez MD [address] [facility] [place] [address] Physician Hematology/Oncology 11/29/24 Annel Alas, BUSINESS LAW PROFESSOR Tower Erector Helper 01/08/25 Ricardo Alva RN Specialty Customs Opener Verifier Packer Hospice & Palliative Medicine 01/23/25 Sheila Freeman, 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.SENIOR WINDOWS ADMINISTRATOR [address] [facility] [place] [phone] Hospice & Palliative Medicine 01/23/25 Physical Education Specialist Relationship Specialty Start Date End Date Carlos Collins, 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.SENIOR WINDOWS ADMINISTRATOR [address] [place] [address]341 PCP - General Nurse Practitioner 10/27/24 Blanquita Hargrove RN [address] [facility] [place] [address] Specialty Customs Opener Verifier Packer Hematology/Oncology 11/29/24 Rasheed Perez MD [address] [facility] [place] [address] Physician Hematology/Oncology 11/29/24 Annel Alas, BUSINESS LAW PROFESSOR Tower Erector Helper 01/08/25 Ricardo Alva RN Specialty Customs Opener Verifier Packer Hospice & Palliative Medicine 01/23/25 Sheila Freeman, 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.SENIOR WINDOWS ADMINISTRATOR [address] [facility] [place] [phone] Hospice & Palliative Medicine 01/23/25 Physical Education Specialist Relationship Specialty Start Date End Date Carlos Collins, 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.SENIOR WINDOWS ADMINISTRATOR [address] [place] [address]605 PCP - General Nurse Practitioner 10/27/24 Blanquita Hargrove, PRITI [address] [facility] [place] [address] Specialty Customs Opener Verifier Packer Hematology/Oncology 11/29/24 Rasheed Perez MD [address] [facility] [place] [address] Physician Hematology/Oncology 11/29/24 Annel Alas, CHRISTEL Tower Erector Helper 01/08/25 Ricardo Alva, RN Specialty Customs Opener Verifier Packer Hospice & Palliative Medicine 01/23/25 Sheila Freeman, 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.SENIOR WINDOWS ADMINISTRATOR [address] [facility] [place] [phone] Hospice & Palliative Medicine 01/23/25 Physical Education Specialist Relationship Specialty Start Date End Date Carlos Collins, 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.SENIOR WINDOWS ADMINISTRATOR [address] [place] [address]23 PCP - General Nurse Practitioner 10/27/24 Blanquita Hargrove, PRITI [address] [facility] [place] [address] Specialty Customs Opener Verifier Packer Hematology/Oncology 11/29/24 Rasheed Perez MD [address] [facility] [place] [address] Physician Hematology/Oncology 11/29/24 Annel Alas, CHRISTEL Tower Erector Helper 01/08/25 Ricardo Alva, RN Specialty Customs Opener Verifier Packer Hospice & Palliative Medicine 01/23/25 Sheila Freeman, 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.SENIOR WINDOWS ADMINISTRATOR [address] [facility] [place] [address] Hospice & Palliative Medicine 01/23/25 Physical Education Specialist Relationship Specialty Start Date End Date Carlos Collins, 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.SENIOR WINDOWS ADMINISTRATOR [address] [place] [address] 9[address]89 PCP - General Nurse Practitioner 10/27/24 Blanquita Hargrove, RN [address] [facility] [place] [address] Specialty Customs Opener Verifier Packer Hematology/Oncology 11/29/24 Rasheed Perez MD [address] [facility] [place] [address] Physician Hematology/Oncology 11/29/24 Annel Alas, CHRISTEL Tower Erector Helper 01/08/25 Physical Education Specialist Relationship Specialty Start Date End Date Carlos Collins, 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.SENIOR WINDOWS ADMINISTRATOR [address] [place] [address] 80821 PCP - General Nurse Practitioner 10/27/24 Blanquita Hargrove RN [address] [facility] [place] [address] Specialty Customs Opener Verifier Packer Hematology/Oncology 11/29/24 Rasheed Perez MD [address] [facility] [place] [address] Physician Hematology/Oncology 11/29/24 Annel Alas, BUSINESS LAW PROFESSOR Tower Erector Helper 01/08/25 Ricardo Alva RN Specialty Customs Opener Verifier Packer Hospice & Palliative Medicine 01/23/25 Sheila Freeman, 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.SENIOR WINDOWS ADMINISTRATOR [address] [facility] [place] [phone] Hospice & Palliative Medicine 01/23/25 Physical Education Specialist Relationship Specialty Start Date End Date Carlos Collins, 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.SENIOR WINDOWS ADMINISTRATOR [address] [place] [address]204 PCP - General Nurse Practitioner 10/27/24 Blanquita Hargrove, PRITI [address] [facility] [place] [address] Specialty Customs Opener Verifier Packer Hematology/Oncology 11/29/24 Rasheed Perez MD [address] [facility] [place] [address] Physician Hematology/Oncology 11/29/24 Annel Alas, CHRISTEL Tower Erector Helper 01/08/25 Ricardo Alva, RN Specialty Customs Opener Verifier Packer Hospice & Palliative Medicine 01/23/25 Sheila Freeman, 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.SENIOR WINDOWS ADMINISTRATOR [address] [facility] [place] [phone] Hospice & Palliative Medicine 01/23/25 Physical Education Specialist Relationship Specialty Start Date End Date Carlos Collins, 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.SENIOR WINDOWS ADMINISTRATOR [address] [place] [address] PCP - General Nurse Practitioner 10/27/24 Blanquita Hargrove, PRITI [address] [facility] [place] [address] Specialty Customs Opener Verifier Packer Hematology/Oncology 11/29/24 Rasheed Perez MD [address] [facility] [place] [address] Physician Hematology/Oncology 11/29/24 Annel Alas, CHRISTEL Tower Erector Helper 01/08/25 Ricardo Alva, RN Specialty Customs Opener Verifier Packer Hospice & Palliative Medicine 01/23/25 Sheila Freeman, 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.SENIOR WINDOWS ADMINISTRATOR [address] [facility] [place] [address] Hospice & Palliative Medicine 01/23/25 Physical Education Specialist Relationship Specialty Start Date End Date Carlos Collins, 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.SENIOR WINDOWS ADMINISTRATOR [address] [place] [address]756 PCP - General Nurse Practitioner 10/27/24 Blanquita Hargrove RN [address] [facility] [place] [address] Specialty Customs Opener Verifier Packer Hematology/Oncology 11/29/24 Rasheed Perez MD [address] [facility] [place] [address] Physician Hematology/Oncology 11/29/24 Annel Alas, BUSINESS LAW PROFESSOR Tower Erector Helper 01/08/25 Ricardo Alva RN Specialty Customs Opener Verifier Packer Hospice & Palliative Medicine 01/23/25 Sheila Freeman, 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.SENIOR WINDOWS ADMINISTRATOR [address] [facility] [place] [address] Hospice & Palliative Medicine 01/23/25 Physical Education Specialist Relationship Specialty Start Date End Date Carlos Collins, 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.SENIOR WINDOWS ADMINISTRATOR [address] [place] [address]804 PCP - General Nurse Practitioner 10/27/24 Blanquita Hargrove RN [address] [facility] [place] [address] Specialty Customs Opener Verifier Packer Hematology/Oncology 11/29/24 Rasheed Perez MD [address] [facility] [place] [address] Physician Hematology/Oncology 11/29/24 Annel Alas, BUSINESS LAW PROFESSOR Tower Erector Helper 01/08/25 Ricardo Alva RN Specialty Customs Opener Verifier Packer Hospice & Palliative Medicine 01/23/25 Sheila Freeman, 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.SENIOR WINDOWS ADMINISTRATOR [address] [facility] [place] [phone] Hospice & Palliative Medicine 01/23/25 Physical Education Specialist Relationship Specialty Start Date End Date Carlos Collins, 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.SENIOR WINDOWS ADMINISTRATOR [address] [place] [address]057 PCP - General Nurse Practitioner 10/27/24 Blanquita Hargrove, RN [address] [facility] [place] [address] Specialty Customs Opener Verifier Packer Hematology/Oncology 11/29/24 Rasheed Perez MD [address] [facility] [place] [address] Physician Hematology/Oncology 11/29/24 Annel Alas LSW Tower Erector Helper 01/08/25 Ricardo Alva RN Specialty Customs Opener Verifier Packer Hospice & Palliative Medicine 01/23/25 Sheila Freeman, 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.SENIOR WINDOWS ADMINISTRATOR [address] [facility] [place] [address] Hospice & Palliative Medicine 01/23/25 Physical Education Specialist Relationship Specialty Start Date End Date Carlos Collins, 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.SENIOR WINDOWS ADMINISTRATOR [address] [place] [address]22 PCP - General Nurse Practitioner 10/27/24 Blanquita Hargrove, RN [address] [facility] [place] [address] Specialty Customs Opener Verifier Packer Hematology/Oncology 11/29/24 Rasheed Perez MD [address] [facility] [address] [place], [place] [id number] Physician Hematology/Oncology 11/29/24 Annel Alas LSW Tower Erector Helper 01/08/25 Ricardo Alva, RN Specialty Customs Opener Verifier Packer Hospice & Palliative Medicine 01/23/25 Sheila Freeman, 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.SENIOR WINDOWS ADMINISTRATOR [address] [facility] [place] [phone] Hospice & Palliative Medicine 01/23/25 Physical Education Specialist Relationship Specialty Start Date End Date Carlos Collins 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.SENIOR WINDOWS ADMINISTRATOR [address] [place] [place] [phone] PCP - General Nurse Practitioner 10/27/24 Blanquita Hargrove RN [address] [place] [address] [place] [address] Specialty Customs Opener Verifier Packer Hematology/Oncology 11/29/24 Rasheed Perez MD [address] [place] [address] [place] [address] Physician Hematology/Oncology 11/29/24 Annel Alas LSW Tower Erector Helper 01/08/25 Ricardo Alva, RN Specialty Customs Opener Verifier Packer Hospice & Palliative Medicine 01/23/25 Sheila Freeman, 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.SENIOR WINDOWS ADMINISTRATOR [address] [place] [address] [place] [phone] Hospice & Palliative Medicine 01/23/25 Physical Education Specialist Relationship Specialty Start Date End Date Carlos Collins APRN-SENIOR WINDOWS ADMINISTRATOR [address] [place] [address] [id number] PCP - General Nurse Practitioner 11/08/24 Physical Education Specialist Relationship Specialty Start Date End Date Carlos Collins 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.SENIOR WINDOWS ADMINISTRATOR [address] [place] [address] [phone] PCP - General Nurse Practitioner 10/27/24 Blanquita Hargrove, RN [address] [facility] [place] [address] Specialty Customs Opener Verifier Packer Hematology/Oncology 11/29/24 Rasheed Perez MD [address] [facility] [place] [address] Physician Hematology/Oncology 11/29/24 Annel Alas, BUSINESS LAW PROFESSOR Tower Erector Helper 01/08/25 Ricardo Alva, PRITI Specialty Customs Opener Verifier Packer Hospice & Palliative Medicine 01/23/25 Sheila Freeman, 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.SENIOR WINDOWS ADMINISTRATOR [address] [facility] [place] [phone] Hospice & Palliative Medicine 01/23/25 Physical Education Specialist Relationship Specialty Start Date End Date Carlos Collins 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.SENIOR WINDOWS ADMINISTRATOR [facility] [place] [address] PCP - General Nurse Practitioner 10/27/24 Blanquita Hargrove RN [address] [facility] [place] [address] Specialty Customs Opener Verifier Packer Hematology/Oncology 11/29/24 Rasheed Perez MD [address] [facility] [place] [address] Physician Hematology/Oncology 11/29/24 Annel Alas, BUSINESS LAW PROFESSOR Tower Erector Helper 01/08/25 Ricardo Alva RN Specialty Customs Opener Verifier Packer Hospice & Palliative Medicine 01/23/25 Sheila Freeman, 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.SENIOR WINDOWS ADMINISTRATOR [address] [facility] [place] [address] Hospice & Palliative Medicine 01/23/25 Physical Education Specialist Relationship Specialty Start Date End Date Carlos Collins 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-SENIOR WINDOWS ADMINISTRATOR [address] [place] [phone] PCP - General Nurse Practitioner 11/08/24 Physical Education Specialist Relationship Specialty Start Date End Date Carlos Collins 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-SENIOR WINDOWS ADMINISTRATOR [address] [place] [address] [phone] PCP - General Nurse Practitioner 11/08/24 Physical Education Specialist Relationship Specialty Start Date End Date Carlos Collins, 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.SENIOR WINDOWS ADMINISTRATOR [address] [place] [address], [place] [address] PCP - General Nurse Practitioner 10/27/24 Blanquita Hargrove RN [address] [facility] [address] [place], [place] [phone] Specialty Customs Opener Verifier Packer Hematology/Oncology 11/29/24 Rasheed Perez MD [address] [place] [address] [place] [address] Physician Hematology/Oncology 11/29/24 Annel Alas LSW Tower Erector Helper 01/08/25 Ricardo Alva RN Specialty Customs Opener Verifier Packer Hospice & Palliative Medicine 01/23/25 Sheila Freeman, 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.SENIOR WINDOWS ADMINISTRATOR [address] [place] [address] [place] [address] Hospice & Palliative Medicine 01/23/25 Physical Education Specialist Relationship Specialty Start Date End Date Carlos Collins, 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.SENIOR WINDOWS ADMINISTRATOR [address] [place] [address], [place] [address] PCP - General Nurse Practitioner 10/27/24 Blanquita Hargrove RN [address] [facility] [address] [place], [place] [phone] Specialty Customs Opener Verifier Packer Hematology/Oncology 11/29/24 Rasheed Perez MD [address] [facility] [place] [address] Physician Hematology/Oncology 11/29/24 Annel Alas, [facility] Tower Erector Helper 01/08/25 Physical Education Specialist Relationship Specialty Start Date End Date Carlos Collins, 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.SENIOR WINDOWS ADMINISTRATOR [address] [place] [phone] PCP - General Nurse Practitioner 10/27/24 Blanquita Hargrove, PRITI [address] [facility] [place] [address] Specialty Customs Opener Verifier Packer Hematology/Oncology 11/29/24 Rasheed Perez MD [address] [facility] [place] [address] Physician Hematology/Oncology 11/29/24 Annel Alas, [facility] Tower Erector Helper 01/08/25 Ricardo Alva RN Specialty Customs Opener Verifier Packer Hospice & Palliative Medicine 01/23/25 Sheila Freeman, 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.SENIOR WINDOWS ADMINISTRATOR [address] [facility] [place] [phone] Hospice & Palliative Medicine 01/23/25 Physical Education Specialist Relationship Specialty Start Date End Date Carlos Collins, 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.SENIOR WINDOWS ADMINISTRATOR [address] [place] [address] PCP - General Nurse Practitioner 10/27/24 Blanquita Hargrove, RN [address] [facility] [place] [address] Specialty Customs Opener Verifier Packer Hematology/Oncology 11/29/24 Rasheed Perez MD [address] [facility] [place] [address] Physician Hematology/Oncology 11/29/24 Annel Alas, CHRISTEL Tower Erector Helper 01/08/25 Ricardo Alva RN Specialty Customs Opener Verifier Packer Hospice & Palliative Medicine 01/23/25 Sheila Freeman, 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.SENIOR WINDOWS ADMINISTRATOR [address] [facility] [place] [phone] Hospice & Palliative Medicine 01/23/25 Physical Education Specialist Relationship Specialty Start Date End Date Carlos Collins, 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.SENIOR WINDOWS ADMINISTRATOR [address] [place] [address] PCP - General Nurse Practitioner 10/27/24 Blanquita Hargrove RN [address] [facility] [place] [address] Specialty Customs Opener Verifier Packer Hematology/Oncology 11/29/24 Rasheed Perez MD [address] [facility] [place] [address] Physician Hematology/Oncology 11/29/24 Annel Alas, CHRISTEL Tower Erector Helper 01/08/25 Ricardo Alva RN Specialty Customs Opener Verifier Packer Hospice & Palliative Medicine 01/23/25 Sheila Freeman, 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.SENIOR WINDOWS ADMINISTRATOR [address] [facility] [place] [address] Hospice & Palliative Medicine 01/23/25 Physical Education Specialist Relationship Specialty Start Date End Date Carlos Collins, 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.SENIOR WINDOWS ADMINISTRATOR [address] [place] [address] 73441 PCP - General Nurse Practitioner 10/27/24 Blanquita Hargrove RN [address] [facility] [place] [address] Specialty Customs Opener Verifier Packer Hematology/Oncology 11/29/24 Rasheed Perez MD [address] [facility] [place] [address] Physician Hematology/Oncology 11/29/24 Annel Alas, BUSINESS LAW PROFESSOR Tower Erector Helper 01/08/25 Ricardo Alva, RN Specialty Customs Opener Verifier Packer Hospice & Palliative Medicine 01/23/25 Sheila Freeman, 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.SENIOR WINDOWS ADMINISTRATOR [address] [facility] [place] [address]388291 Hospice & Palliative Medicine 01/23/25 Physical Education Specialist Relationship Specialty Start Date End Date Carlos Collins, 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.SENIOR WINDOWS ADMINISTRATOR [address] [place] [address] 08478 PCP - General Nurse Practitioner 10/27/24 Blanquita Hargrove RN [address] [place] [address] [place] [address] Specialty Customs Opener Verifier Packer Hematology/Oncology 11/29/24 Rasheed Perez MD [address] [facility] [place] [address] Physician Hematology/Oncology 11/29/24 Annel Alas, BUSINESS LAW PROFESSOR Tower Erector Helper 01/08/25 Ricardo Alva, PRITI Specialty Customs Opener Verifier Packer Hospice & Palliative Medicine 01/23/25 Sheila Freeman, 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.SENIOR WINDOWS ADMINISTRATOR [address] [facility] [place] [phone] Hospice & Palliative Medicine 01/23/25 Physical Education Specialist Relationship Specialty Start Date End Date Carlos Collins, 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.SENIOR WINDOWS ADMINISTRATOR [address] [place] [address] [phone] PCP - General Nurse Practitioner 10/27/24 Blanquita Hargrove, RN [address] [facility] [place] [address] Specialty Customs Opener Verifier Packer Hematology/Oncology 11/29/24 Rasheed Perez MD [address] [facility] [place] [address] Physician Hematology/Oncology 11/29/24 Annel Alas, CHRISTEL Tower Erector Helper 01/08/25 Ricardo Alva, PRITI Specialty Customs Opener Verifier Packer Hospice & Palliative Medicine 01/23/25 Sheila Freeman, 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.SENIOR WINDOWS ADMINISTRATOR [address] [facility] [place] [phone] Hospice & Palliative Medicine 01/23/25 Physical Education Specialist Relationship Specialty Start Date End Date Carlos Collins 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.SENIOR WINDOWS ADMINISTRATOR [facility] [place] [address] PCP - General Nurse Practitioner 10/27/24 Blanquita Hargrove RN [address] [facility] [place] [address] Specialty Customs Opener Verifier Packer Hematology/Oncology 11/29/24 Rasheed Perez MD [address] [facility] [place] [address] Physician Hematology/Oncology 11/29/24 Annel Alas, CHRISTEL Tower Erector Helper 01/08/25 Ricardo Alva RN Specialty Customs Opener Verifier Packer Hospice & Palliative Medicine 01/23/25 Sheila Freeman, 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.SENIOR WINDOWS ADMINISTRATOR [address] [facility] [place] [phone] Hospice & Palliative Medicine 01/23/25 Physical Education Specialist Relationship Specialty Start Date End Date Carlos Collins 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.SENIOR WINDOWS ADMINISTRATOR [address] [place] [address] [phone] PCP - General Nurse Practitioner 10/27/24 Blanquita Hargrove, RN [address] [facility] [place] [address] Specialty Customs Opener Verifier Packer Hematology/Oncology 11/29/24 Rasheed Perez MD [address] [facility] [place] [address] Physician Hematology/Oncology 11/29/24 Annel Alas, CHRISTEL Tower Erector Helper 01/08/25 Ricardo Alva RN Specialty Customs Opener Verifier Packer Hospice & Palliative Medicine 01/23/25 Sheila Freeman, 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.SENIOR WINDOWS ADMINISTRATOR [address] [facility] [place] [address] Hospice & Palliative Medicine 01/23/25 Physical Education Specialist Relationship Specialty Start Date End Date Carlos Collins, 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.SENIOR WINDOWS ADMINISTRATOR [address] [place] [address] 17792 PCP - General Nurse Practitioner 10/27/24 Blanquita Hargrove, PRITI [address] [facility] [place] [address] Specialty Customs Opener Verifier Packer Hematology/Oncology 11/29/24 Rasheed Perez MD [address] [facility] [place] [address] Physician Hematology/Oncology 11/29/24 Annel Alas, BUSINESS LAW PROFESSOR Tower Erector Helper 01/08/25 Ricardo Alva RN Specialty Customs Opener Verifier Packer Hospice & Palliative Medicine 01/23/25 Sheila Freeman, 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.SENIOR WINDOWS ADMINISTRATOR [address] [facility] [place] [address] Hospice & Palliative Medicine 01/23/25 Physical Education Specialist Relationship Specialty Start Date End Date Carlos Collins, 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.SENIOR WINDOWS ADMINISTRATOR [address] [place] [address] 87204 PCP - General Nurse Practitioner 10/27/24 Blanquita Hargrove, PRITI [address] [facility] [facility] [place] [address] Specialty Customs Opener Verifier Packer Hematology/Oncology 11/29/24 Rasheed Perez MD [address] [facility] [place] [address] Physician Hematology/Oncology 11/29/24 Annel Alas, CHRISTEL Tower Erector Helper 01/08/25 Ricardo Alva RN Specialty Customs Opener Verifier Packer Hospice & Palliative Medicine 01/23/25 Sheila Freeman, 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.SENIOR WINDOWS ADMINISTRATOR [address] [facility] [place] [address]28[address] Hospice & Palliative Medicine 01/23/25 Physical Education Specialist Relationship Specialty Start Date End Date Carlos Collins, 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.SENIOR WINDOWS ADMINISTRATOR [address] [place] [address] 8[address]85 PCP - General Nurse Practitioner 10/27/24 Blanquita Hargrove RN [address] [facility] [place] [address] Specialty Customs Opener Verifier Packer Hematology/Oncology 11/29/24 Rasheed Perez MD [address] [facility] [place] [address] Physician Hematology/Oncology 11/29/24 Annel Alas, BUSINESS LAW PROFESSOR Tower Erector Helper 01/08/25 Ricardo Alva RN Specialty Customs Opener Verifier Packer Hospice & Palliative Medicine 01/23/25 Sheila Freeman, 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.SENIOR WINDOWS ADMINISTRATOR [address] [facility] [place] [phone] Hospice & Palliative Medicine 01/23/25 Physical Education Specialist Relationship Specialty Start Date End Date Carlos Collins, WASTEWATER TREATMENT ENGINEER.SENIOR WINDOWS ADMINISTRATOR [address] [place] [address] PCP - General Nurse Practitioner 10/27/24 Blanquita Hargrove, RN [address] [facility] [place] [address] Specialty Customs Opener Verifier Packer Hematology/Oncology 11/29/24 Rasheed Perez MD [address] [facility] [place] [address] Physician Hematology/Oncology 11/29/24 Annel Alas LSW Tower Erector Helper 01/08/25 Ricardo Alva RN Specialty Customs Opener Verifier Packer Hospice & Palliative Medicine 01/23/25 Sheila Freeman, WASTEWATER TREATMENT ENGINEER.SENIOR WINDOWS ADMINISTRATOR [address] [facility] [place] [phone] Hospice & Palliative Medicine 01/23/25 Physical Education Specialist Relationship Specialty Start Date End Date Carlos Collins, WASTEWATER TREATMENT ENGINEER.SENIOR WINDOWS ADMINISTRATOR [address] [place] [address] 61507 PCP - General Nurse Practitioner 10/27/24 Blanquita Hargrove, RN [address] [facility] [address] [place], [place] [phone] Specialty Customs Opener Verifier Packer Hematology/Oncology 11/29/24 Rasheed Perez MD [address] [facility] [place] [address] Physician Hematology/Oncology 11/29/24 Annel Alas, CHRISTEL Tower Erector Helper 01/08/25 Ricardo Alva, PRITI Specialty Customs Opener Verifier Packer Hospice & Palliative Medicine 01/23/25 Sheila Freeman, WASTEWATER TREATMENT ENGINEER.SENIOR WINDOWS ADMINISTRATOR [address] [facility] [place] [phone] Hospice & Palliative Medicine 01/23/25 Physical Education Specialist Relationship Specialty Start Date End Date Carlos Collins, WASTEWATER TREATMENT ENGINEER.SENIOR WINDOWS ADMINISTRATOR [address] [place] [place] [address]26 PCP - General Nurse Practitioner 10/27/24 Blanquita Hargrove, RN [address] [facility] [place] [address] Specialty Customs Opener Verifier Packer Hematology/Oncology 11/29/24 Rasheed Perez MD [address] [place] [address] [place] [address] Physician Hematology/Oncology 11/29/24 Annel Alas LSW Tower Erector Helper 01/08/25 Ricardo Alva RN Specialty Customs Opener Verifier Packer Hospice & Palliative Medicine 01/23/25 Sheila Freeman, WASTEWATER TREATMENT ENGINEER.SENIOR WINDOWS ADMINISTRATOR [address] [facility] [place] [address] Hospice & Palliative Medicine 01/23/25 Physical Education Specialist Relationship Specialty Start Date End Date Carlos Collins, WASTEWATER TREATMENT ENGINEER.SENIOR WINDOWS ADMINISTRATOR [address] [place] [address] 28236 PCP - General Nurse Practitioner 10/27/24 Blanquita Hargrove RN [address] [facility] [place] [address] Specialty Customs Opener Verifier Packer Hematology/Oncology 11/29/24 Rasheed Perez MD [address] [facility] [place] [address] Physician Hematology/Oncology 11/29/24 Annel Alas, BUSINESS LAW PROFESSOR Tower Erector Helper 01/08/25 Ricardo Alva, RN Specialty Customs Opener Verifier Packer Hospice & Palliative Medicine 01/23/25 Sheila Freeman, WASTEWATER TREATMENT ENGINEER.SENIOR WINDOWS ADMINISTRATOR [address] [facility] [place] [phone] Hospice & Palliative Medicine 01/23/25 Physical Education Specialist Relationship Specialty Start Date End Date Carlos Collins, WASTEWATER TREATMENT ENGINEER.SENIOR WINDOWS ADMINISTRATOR [address] [place] [address] 7[address]83 PCP - General Nurse Practitioner 10/27/24 Blanquita Hargrove RN [address] [facility] [place] [address] Specialty Customs Opener Verifier Packer Hematology/Oncology 11/29/24 Rasheed Perez MD [address] [facility] [place] [address] Physician Hematology/Oncology 11/29/24 Annel Alas, BUSINESS LAW PROFESSOR Tower Erector Helper 01/08/25 Ricardo Alva, RN Specialty Customs Opener Verifier Packer Hospice & Palliative Medicine 01/23/25 Sheila Freeman, WASTEWATER TREATMENT ENGINEER.SENIOR WINDOWS ADMINISTRATOR [address] [facility] [place] [phone] Hospice & Palliative Medicine 01/23/25 Physical Education Specialist Relationship Specialty Start Date End Date Carlos Collins, WASTEWATER TREATMENT ENGINEER.SENIOR WINDOWS ADMINISTRATOR [address] [place] [address] [phone] PCP - General Nurse Practitioner 10/27/24 Blanquita Hargrove RN [address] [facility] [place] [address] Specialty Customs Opener Verifier Packer Hematology/Oncology 11/29/24 Rasheed Perez MD [address] [facility] [place] [address] Physician Hematology/Oncology 11/29/24 Annel Alas, BUSINESS LAW PROFESSOR Tower Erector Helper 01/08/25 Ricardo Alva, RN Specialty Customs Opener Verifier Packer Hospice & Palliative Medicine 01/23/25 Sheila Freeman, WASTEWATER TREATMENT ENGINEER.SENIOR WINDOWS ADMINISTRATOR [address] [facility] [place] [phone] Hospice & Palliative Medicine 01/23/25 Physical Education Specialist Relationship Specialty Start Date End Date Carlos Collins WASTEWATER TREATMENT ENGINEER.SENIOR WINDOWS ADMINISTRATOR [address] [place] [address] [address] PCP - General Nurse Practitioner 10/27/24 Blanquita Hargrove RN [address] [facility] [place] [address] Specialty Customs Opener Verifier Packer Hematology/Oncology 11/29/24 Rasheed Perez MD [address] [facility] [place] [address] Physician Hematology/Oncology 11/29/24 Annel Alas, BUSINESS LAW PROFESSOR Tower Erector Helper 01/08/25 Ricardo Alva, RN Specialty Customs Opener Verifier Packer Hospice & Palliative Medicine 01/23/25 Sheila Freeman, WASTEWATER TREATMENT ENGINEER.SENIOR WINDOWS ADMINISTRATOR [address] [facility] [place] [phone] Hospice & Palliative Medicine 01/23/25 Physical Education Specialist Relationship Specialty Start Date End Date Carlos Collins WASTEWATER TREATMENT ENGINEER-SENIOR WINDOWS ADMINISTRATOR [facility] [place] [address] PCP - General Nurse Practitioner 11/08/24 Physical Education Specialist Relationship Specialty Start Date End Date Carlos Collins APRN-ABBEY [address] [place] [address] PCP - General Nurse Practitioner 11/08/24 Goals [...] abuse patient.[facility] the event this information is protected by the Federal Confidentiality of Alcohol and Drug Abuse Patient Records regulations: The Federal rules restrict any use of the information to criminally investigate or prosecute any alcohol or drug abuse patient.[facility] the event this information is protected by the Federal Confidentiality of Alcohol and Drug Abuse Patient Records regulations: The Federal rules restrict any use of the information to criminally investigate or prosecute any alcohol or drug abuse patient.[facility] the event this information is protected by the Federal Confidentiality of Alcohol and Drug Abuse Patient Records regulations: The Federal rules restrict any use of the information to criminally investigate or prosecute any alcohol or drug abuse patient.[facility] the event this information is protected by the Federal Confidentiality of Alcohol and Drug Abuse Patient Records regulations: The Federal rules restrict any use of the information to criminally investigate or prosecute any alcohol or drug abuse patient.[facility] the event this information is protected by the Federal Confidentiality of Alcohol and Drug Abuse Patient Records regulations: The Federal rules restrict any use of the information to criminally investigate or prosecute any alcohol or drug abuse patient.[facility] the event this information is protected by the Federal Confidentiality of Alcohol and Drug Abuse Patient Records regulations: The Federal rules restrict any use of the information to criminally investigate or prosecute any alcohol or drug abuse patient.[facility] the event this information is protected by the Federal Confidentiality of Alcohol and Drug Abuse Patient Records regulations: The Federal rules restrict any use of the information to criminally investigate or prosecute any alcohol or drug abuse patient.[facility] the event this information is protected by the Federal Confidentiality of Alcohol and Drug Abuse Patient Records regulations: The Federal rules restrict any use of the information to criminally investigate or prosecute any alcohol or drug abuse patient.[facility] the event this information is protected by the Federal Confidentiality of Alcohol and Drug Abuse Patient Records regulations: The Federal rules restrict any use of the information to criminally investigate or prosecute any alcohol or drug abuse patient.[facility] the event this information is protected by the Federal Confidentiality of Alcohol and Drug Abuse Patient Records regulations: The Federal rules restrict any use of the information to criminally investigate or prosecute any alcohol or drug abuse patient.[facility] the event this information is protected by the Federal Confidentiality of Alcohol and Drug Abuse Patient Records regulations: The Federal rules restrict any use of the information to criminally investigate or prosecute any alcohol or drug abuse patient.[facility]In the event this information is protected by the Federal Confidentiality of Alcohol and Drug Abuse Patient Records regulations: The Federal rules restrict any use of the information to criminally investigate or prosecute any alcohol or drug abuse patient.[facility]In the event this information is protected by the Federal Confidentiality of Alcohol and Drug Abuse Patient Records regulations: The Federal rules restrict any use of the information to criminally investigate or prosecute any alcohol or drug abuse patient.[facility]In the event this information is protected by the Federal Confidentiality of Alcohol and Drug Abuse Patient Records regulations: The Federal rules restrict any use of the information to criminally investigate or prosecute any alcohol or drug abuse patient.[facility]In the event this information is protected by the Federal Confidentiality of Alcohol and Drug Abuse Patient Records regulations: The Federal rules restrict any use of the information to criminally investigate or prosecute any alcohol or drug abuse patient.[facility]In the event this information is protected by the Federal Confidentiality of Alcohol and Drug Abuse Patient Records regulations: The Federal rules restrict any use of the information to criminally investigate or prosecute any alcohol or drug abuse patient.[facility]In the event this information is protected by the Federal Confidentiality of Alcohol and Drug Abuse Patient Records regulations: The Federal rules restrict any use of the information to criminally investigate or prosecute any alcohol or drug abuse patient.[facility]In the event this information is protected by the Federal Confidentiality of Alcohol and Drug Abuse Patient Records regulations: The Federal rules restrict any use of the information to criminally investigate or prosecute any alcohol or drug abuse patient.[facility]In the event this information is protected by the Federal Confidentiality of Alcohol and Drug Abuse Patient Records regulations: The Federal rules restrict any use of the information to criminally investigate or prosecute any alcohol or drug abuse patient.[facility]In the event this information is protected by the Federal Confidentiality of Alcohol and Drug Abuse Patient Records regulations: The Federal rules restrict any use of the information to criminally investigate or prosecute any alcohol or drug abuse patient.[facility]In the event this information is protected by the Federal Confidentiality of Alcohol and Drug Abuse Patient Records regulations: The Federal rules restrict any use of the information to criminally investigate or prosecute any alcohol or drug abuse patient.[facility]In the event this information is protected by the Federal Confidentiality of Alcohol and Drug Abuse Patient Records regulations: The Federal rules restrict any use of the information to criminally investigate or prosecute any alcohol or drug abuse patient.[facility]In the event this information is protected by the Federal Confidentiality of Alcohol and Drug Abuse Patient Records regulations: The Federal rules restrict any use of the information to criminally investigate or prosecute any alcohol or drug abuse patient.[facility]In the event this information is protected by the Federal Confidentiality of Alcohol and Drug Abuse Patient Records regulations: The Federal rules restrict any use of the information to criminally investigate or prosecute any alcohol or drug abuse patient.[facility]In the event this information is protected by the Federal Confidentiality of Alcohol and Drug Abuse Patient Records regulations: The Federal rules restrict any use of the information to criminally investigate or prosecute any alcohol or drug abuse patient.[facility]In the event this information is protected by the Federal Confidentiality of Alcohol and Drug Abuse Patient Records regulations: The Federal rules restrict any use of the information to criminally investigate or prosecute any alcohol or drug abuse patient.[facility]In the event this information is protected by the Federal Confidentiality of Alcohol and Drug Abuse Patient Records regulations: The Federal rules restrict any use of the information to criminally investigate or prosecute any alcohol or drug abuse patient.[facility]In the event this information is protected by the Federal Confidentiality of Alcohol and Drug Abuse Patient Records regulations: The Federal rules restrict any use of the information to criminally investigate or prosecute any alcohol or drug abuse patient.[facility]In the event this information is protected by the Federal Confidentiality of Alcohol and Drug Abuse Patient Records regulations: The Federal rules restrict any use of the information to criminally investigate or prosecute any alcohol or drug abuse patient.[facility]In the event this information is protected by the Federal Confidentiality of Alcohol and Drug Abuse Patient Records regulations: The Federal rules restrict any use of the information to criminally investigate or prosecute any alcohol or drug abuse patient.[facility]In the event this information is protected by the Federal Confidentiality of Alcohol and Drug Abuse Patient Records regulations: The Federal rules restrict any use of the information to criminally investigate or prosecute any alcohol or drug abuse patient.[facility]In the event this information is protected by the Federal Confidentiality of Alcohol and Drug Abuse Patient Records regulations: The Federal rules restrict any use of the information to criminally investigate or prosecute any alcohol or drug abuse patient.[facility]In the event this information is protected by the Federal Confidentiality of Alcohol and Drug Abuse Patient Records regulations: The Federal rules restrict any use of the information to criminally investigate or prosecute any alcohol or drug abuse patient.[facility]In the event this information is protected by the Federal Confidentiality of Alcohol and Drug Abuse Patient Records regulations: The Federal rules restrict any use of the information to criminally investigate or prosecute any alcohol or drug abuse patient.[facility]In the event this information is protected by the Federal Confidentiality of Alcohol and Drug Abuse Patient Records regulations: The Federal rules restrict any use of the information to criminally investigate or prosecute any alcohol or drug abuse patient.[facility]In the event this information is protected by the Federal Confidentiality of Alcohol and Drug Abuse Patient Records regulations: The Federal rules restrict any use of the information to criminally investigate or prosecute any alcohol or drug abuse patient.[facility]In the event this information is protected by the Federal Confidentiality of Alcohol and Drug Abuse Patient Records regulations: The Federal rules restrict any use of the information to criminally investigate or prosecute any alcohol or drug abuse patient.[facility]In the event this information is protected by the Federal Confidentiality of Alcohol and Drug Abuse Patient Records regulations: The Federal rules restrict any use of the information to criminally investigate or prosecute any alcohol or drug abuse patient.[facility]In the event this information is protected by the Federal Confidentiality of Alcohol and Drug Abuse Patient Records regulations: The Federal rules restrict any use of the information to criminally investigate or prosecute any alcohol or drug abuse patient.[facility]In the event this information is protected by the Federal Confidentiality of Alcohol and Drug Abuse Patient Records regulations: The Federal rules restrict any use of the information to criminally investigate or prosecute any alcohol or drug abuse patient.[facility]In the event this information is protected by the Federal Confidentiality of Alcohol and Drug Abuse Patient Records regulations: The Federal rules restrict any use of the information to criminally investigate or prosecute any alcohol or drug abuse patient.[facility]In the event this information is protected by the Federal Confidentiality of Alcohol and Drug Abuse Patient Records regulations: The Federal rules restrict any use of the information to criminally investigate or prosecute any alcohol or drug abuse patient.[facility]In the event this information is protected by the Federal Confidentiality of Alcohol and Drug Abuse Patient Records regulations: The Federal rules restrict any use of the information to criminally investigate or prosecute any alcohol or drug abuse patient.[facility]In the event this information is protected by the Federal Confidentiality of Alcohol and Drug Abuse Patient Records regulations: The Federal rules restrict any use of the information to criminally investigate or prosecute any alcohol or drug abuse patient.[facility]In the event this information is protected by the Federal Confidentiality of Alcohol and Drug Abuse Patient Records regulations: The Federal rules restrict any use of the information to criminally investigate or prosecute any alcohol or drug abuse patient.[facility]In the event this information is protected by the Federal Confidentiality of Alcohol and Drug Abuse Patient Records regulations: The Federal rules restrict any use of the information to criminally investigate or prosecute any alcohol or drug abuse patient.[facility]In the event this information is protected by the Federal Confidentiality of Alcohol and Drug Abuse Patient Records regulations: The Federal rules restrict any use of the information to criminally investigate or prosecute any alcohol or drug abuse patient.[facility]In the event this information is protected by the Federal Confidentiality of Alcohol and Drug Abuse Patient Records regulations: The Federal rules restrict any use of the information to criminally investigate or prosecute any alcohol or drug abuse patient.[facility]In the event this information is protected by the Federal Confidentiality of Alcohol and Drug Abuse Patient Records regulations: The Federal rules restrict any use of the information to criminally investigate or prosecute any alcohol or drug abuse patient.[facility]In the event this information is protected by the Federal Confidentiality of Alcohol and Drug Abuse Patient Records regulations: The Federal rules restrict any use of the information to criminally investigate or prosecute any alcohol or drug abuse patient.[facility]In the event this information is protected by the Federal Confidentiality of Alcohol and Drug Abuse Patient Records regulations: The Federal rules restrict any use of the information to criminally investigate or prosecute any alcohol or drug abuse patient.[facility]In the event this information is protected by the Federal Confidentiality of Alcohol and Drug Abuse Patient Records regulations: The Federal rules restrict any use of the information to criminally investigate or prosecute any alcohol or drug abuse patient.[facility]In the event this information is protected by the Federal Confidentiality of Alcohol and Drug Abuse Patient Records regulations: The Federal rules restrict any use of the information to criminally investigate or prosecute any alcohol or drug abuse patient.[facility]In the event this information is protected by the Federal Confidentiality of Alcohol and Drug Abuse Patient Records regulations: The Federal rules restrict any use of the information to criminally investigate or prosecute any alcohol or drug abuse patient.[facility]In the event this information is protected by the Federal Confidentiality of Alcohol and Drug Abuse Patient Records regulations: The Federal rules restrict any use of the information to criminally investigate or prosecute any alcohol or drug abuse patient.[facility]In the event this information is protected by the Federal Confidentiality of Alcohol and Drug Abuse Patient Records regulations: The Federal rules restrict any use of the information to criminally investigate or prosecute any alcohol or drug abuse patient.[facility]In the event this information is protected by the Federal Confidentiality of Alcohol and Drug Abuse Patient Records regulations: The Federal rules restrict any use of the information to criminally investigate or prosecute any alcohol or drug abuse patient.[facility]In the event this information is protected by the Federal Confidentiality of Alcohol and Drug Abuse Patient Records regulations: The Federal rules restrict any use of the information to criminally investigate or prosecute any alcohol or drug abuse patient.[facility]In the event this information is protected by the Federal Confidentiality of Alcohol and Drug Abuse Patient Records regulations: The Federal rules restrict any use of the information to criminally investigate or prosecute any alcohol or drug abuse patient.[facility]In the event this information is protected by the Federal Confidentiality of Alcohol and Drug Abuse Patient Records regulations: The Federal rules restrict any use of the information to criminally investigate or prosecute any alcohol or drug abuse patient.[facility]In the event this information is protected by the Federal Confidentiality of Alcohol and Drug Abuse Patient Records regulations: The Federal rules restrict any use of the information to criminally investigate or prosecute any alcohol or drug abuse patient.[facility]In the event this information is protected by the Federal Confidentiality of Alcohol and Drug Abuse Patient Records regulations: The Federal rules restrict any use of the information to criminally investigate or prosecute any alcohol or drug abuse patient.[facility]In the event this information is protected by the Federal Confidentiality of Alcohol and Drug Abuse Patient Records regulations: The Federal rules restrict any use of the information to criminally investigate or prosecute any alcohol or drug abuse patient.[facility]In the event this information is protected by the Federal Confidentiality of Alcohol and Drug Abuse Patient Records regulations: The Federal rules restrict any use of the information to criminally investigate or prosecute any alcohol or drug abuse patient.[facility]In the event this information is protected by the Federal Confidentiality of Alcohol and Drug Abuse Patient Records regulations: The Federal rules restrict any use of the information to criminally investigate or prosecute any alcohol or drug abuse patient.[facility]In the event this information is protected by the Federal Confidentiality of Alcohol and Drug Abuse Patient Records regulations: The Federal rules restrict any use of the information to criminally investigate or prosecute any alcohol or drug abuse patient.[facility]In the event this information is protected by the Federal Confidentiality of Alcohol and Drug Abuse Patient Records regulations: The Federal rules restrict any use of the information to criminally investigate or prosecute any alcohol or drug abuse patient.[facility]In the event this information is protected by the Federal Confidentiality of Alcohol and Drug Abuse Patient Records regulations: The Federal rules restrict any use of the information to criminally investigate or prosecute any alcohol or drug abuse patient.[facility]In the event this information is protected by the Federal Confidentiality of Alcohol and Drug Abuse Patient Records regulations: The Federal rules restrict any use of the information to criminally investigate or prosecute any alcohol or drug abuse patient.[facility]In the event this information is protected by the Federal Confidentiality of Alcohol and Drug Abuse Patient Records regulations: The Federal rules restrict any use of the information to criminally investigate or prosecute any alcohol or drug abuse patient.[facility]In the event this information is protected by the Federal Confidentiality of Alcohol and Drug Abuse Patient Records regulations: The Federal rules restrict any use of the information to criminally investigate or prosecute any alcohol or drug abuse patient.[facility]In the event this information is protected by the Federal Confidentiality of Alcohol and Drug Abuse Patient Records regulations: The Federal rules restrict any use of the information to criminally investigate or prosecute any alcohol or drug abuse patient.[facility]In the event this information is protected by the Federal Confidentiality of Alcohol and Drug Abuse Patient Records regulations: The Federal rules restrict any use of the information to criminally investigate or prosecute any alcohol or drug abuse patient.[facility]In the event this information is protected by the Federal Confidentiality of Alcohol and Drug Abuse Patient Records regulations: The Federal rules restrict any use of the information to criminally investigate or prosecute any alcohol or drug abuse patient.[facility]In the event this information is protected by the Federal Confidentiality of Alcohol and Drug Abuse Patient Records regulations: The Federal rules restrict any use of the information to criminally investigate or prosecute any alcohol or drug abuse patient.[facility]In the event this information is protected by the Federal Confidentiality of Alcohol and Drug Abuse Patient Records regulations: The Federal rules restrict any use of the information to criminally investigate or prosecute any alcohol or drug abuse patient.[facility]In the event this information is protected by the Federal Confidentiality of Alcohol and Drug Abuse Patient Records regulations: The Federal rules restrict any use of the information to criminally investigate or prosecute any alcohol or drug abuse patient.[facility]In the event this information is protected by the Federal Confidentiality of Alcohol and Drug Abuse Patient Records regulations: The Federal rules restrict any use of the information to criminally investigate or prosecute any alcohol or drug abuse patient.[facility]In the event this information is protected by the Federal Confidentiality of Alcohol and Drug Abuse Patient Records regulations: The Federal rules restrict any use of the information to criminally investigate or prosecute any alcohol or drug abuse patient.[facility]In the event this information is protected by the Federal Confidentiality of Alcohol and Drug Abuse Patient Records regulations: The Federal rules restrict any use of the information to criminally investigate or prosecute any alcohol or drug abuse patient.[facility]In the event this information is protected by the Federal Confidentiality of Alcohol and Drug Abuse Patient Records regulations: The Federal rules restrict any use of the information to criminally investigate or prosecute any alcohol or drug abuse patient.[facility]In the event this information is protected by the Federal Confidentiality of Alcohol and Drug Abuse Patient Records regulations: The Federal rules restrict any use of the information to criminally investigate or prosecute any alcohol or drug abuse patient.[facility]In the event this information is protected by the Federal Confidentiality of Alcohol and Drug Abuse Patient Records regulations: The Federal rules restrict any use of the information to criminally investigate or prosecute any alcohol or drug abuse patient.[facility]In the event this information is protected by the Federal Confidentiality of Alcohol and Drug Abuse Patient Records regulations: The Federal rules restrict any use of the information to criminally investigate or prosecute any alcohol or drug abuse patient.[facility]In the event this information is protected by the Federal Confidentiality of Alcohol and Drug Abuse Patient Records regulations: The Federal rules restrict any use of the information to criminally investigate or prosecute any alcohol or drug abuse patient.[facility]In the event this information is protected by the Federal Confidentiality of Alcohol and Drug Abuse Patient Records regulations: The Federal rules restrict any use of the information to criminally investigate or prosecute any alcohol or drug abuse patient.[facility]In the event this information is protected by the Federal Confidentiality of Alcohol and Drug Abuse Patient Records regulations: The Federal rules restrict any use of the information to criminally investigate or prosecute any alcohol or drug abuse patient.[facility]In the event this information is protected by the Federal Confidentiality of Alcohol and Drug Abuse Patient Records regulations: The Federal rules restrict any use of the information to criminally investigate or prosecute any alcohol or drug abuse patient.[facility] HospitalIn the event this information is protected by the Federal Confidentiality of Alcohol and Drug Abuse Patient Records regulations: The Federal rules restrict any use of the information to criminally investigate or prosecute any alcohol or drug abuse patient.[facility] HospitalIn the event this information is protected by the Federal Confidentiality of Alcohol and Drug Abuse Patient Records regulations: The Federal rules restrict any use of the information to criminally investigate or prosecute any alcohol or drug abuse patient.[facility] HospitalIn the event this information is protected by the Federal Confidentiality of Alcohol and Drug Abuse Patient Records regulations: The Federal rules restrict any use of the information to criminally investigate or prosecute any alcohol or drug abuse patient.[facility] HospitalIn the event this information is protected by the Federal Confidentiality of Alcohol and Drug Abuse Patient Records regulations: The Federal rules restrict any use of the information to criminally investigate or prosecute any alcohol or drug abuse patient.[facility] HospitalIn the event this information is protected by the Federal Confidentiality of Alcohol and Drug Abuse Patient Records regulations: The Federal rules restrict any use of the information to criminally investigate or prosecute any alcohol or drug abuse patient.[facility] HospitalIn the event this information is protected by the Federal Confidentiality of Alcohol and Drug Abuse Patient Records regulations: The Federal rules restrict any use of the information to criminally investigate or prosecute any alcohol or drug abuse patient.[facility] HospitalIn the event this information is protected by the Federal Confidentiality of Alcohol and Drug Abuse Patient Records regulations: The Federal rules restrict any use of the information to criminally investigate or prosecute any alcohol or drug abuse patient.[facility] HospitalIn the event this information is protected by the Federal Confidentiality of Alcohol and Drug Abuse Patient Records regulations: The Federal rules restrict any use of the information to criminally investigate or prosecute any alcohol or drug abuse patient.[facility] HospitalIn the event this information is protected by the Federal Confidentiality of Alcohol and Drug Abuse Patient Records regulations: The Federal rules restrict any use of the information to criminally investigate or prosecute any alcohol or drug abuse patient.[facility] HospitalIn the event this information is protected by the Federal Confidentiality of Alcohol and Drug Abuse Patient Records regulations: The Federal rules restrict any use of the information to criminally investigate or prosecute any alcohol or drug abuse patient.[facility] HospitalIn the event this information is protected by the Federal Confidentiality of Alcohol and Drug Abuse Patient Records regulations: The Federal rules restrict any use of the information to criminally investigate or prosecute any alcohol or drug abuse patient.[facility] HospitalIn the event this information is protected by the Federal Confidentiality of Alcohol and Drug Abuse Patient Records regulations: The Federal rules restrict any use of the information to criminally investigate or prosecute any alcohol or drug abuse patient.[facility] HospitalIn the event this information is protected by the Federal Confidentiality of Alcohol and Drug Abuse Patient Records regulations: The Federal rules restrict any use of the information to criminally investigate or prosecute any alcohol or drug abuse patient.[facility] HospitalIn the event this information is protected by the Federal Confidentiality of Alcohol and Drug Abuse Patient Records regulations: The Federal rules restrict any use of the information to criminally investigate or prosecute any alcohol or drug abuse patient.[facility] HospitalIn the event this information is protected by the Federal Confidentiality of Alcohol and Drug Abuse Patient Records regulations: The Federal rules restrict any use of the information to criminally investigate or prosecute any alcohol or drug abuse patient.[facility] HospitalIn the event this information is protected by the Federal Confidentiality of Alcohol and Drug Abuse Patient Records regulations: The Federal rules restrict any use of the information to criminally investigate or prosecute any alcohol or drug abuse patient.[facility] HospitalIn the event this information is protected by the Federal Confidentiality of Alcohol and Drug Abuse Patient Records regulations: The Federal rules restrict any use of the information to criminally investigate or prosecute any alcohol or drug abuse patient.[facility] HospitalIn the event this information is protected by the Federal Confidentiality of Alcohol and Drug Abuse Patient Records regulations: The Federal rules restrict any use of the information to criminally investigate or prosecute any alcohol or drug abuse patient.[facility] HospitalIn the event this information is protected by the Federal Confidentiality of Alcohol and Drug Abuse Patient Records regulations: The Federal rules restrict any use of the information to criminally investigate or prosecute any alcohol or drug abuse patient.[facility] HospitalIn the event this information is protected by the Federal Confidentiality of Alcohol and Drug Abuse Patient Records regulations: The Federal rules restrict any use of the information to criminally investigate or prosecute any alcohol or drug abuse patient.[facility] HospitalIn the event this information is protected by the Federal Confidentiality of Alcohol and Drug Abuse Patient Records regulations: The Federal rules restrict any use of the information to criminally investigate or prosecute any alcohol or drug abuse patient.[facility] HospitalIn the event this information is protected by the Federal Confidentiality of Alcohol and Drug Abuse Patient Records regulations: The Federal rules restrict any use of the information to criminally investigate or prosecute any alcohol or drug abuse patient.[facility] HospitalIn the event this information is protected by the Federal Confidentiality of Alcohol and Drug Abuse Patient Records regulations: The Federal rules restrict any use of the information to criminally investigate or prosecute any alcohol or drug abuse patient.[facility] HospitalIn the event this information is protected by the Federal Confidentiality of Alcohol and Drug Abuse Patient Records regulations: The Federal rules restrict any use of the information to criminally investigate or prosecute any alcohol or drug abuse patient.[facility] HospitalIn the event this information is protected by the Federal Confidentiality of Alcohol and Drug Abuse Patient Records regulations: The Federal rules restrict any use of the information to criminally investigate or prosecute any alcohol or drug abuse patient.[facility] HospitalIn the event this information is protected by the Federal Confidentiality of Alcohol and Drug Abuse Patient Records regulations: The Federal rules restrict any use of the information to criminally investigate or prosecute any alcohol or drug abuse patient.[facility] HospitalIn the event this information is protected by the Federal Confidentiality of Alcohol and Drug Abuse Patient Records regulations: The Federal rules restrict any use of the information to criminally investigate or prosecute any alcohol or drug abuse patient.[facility] HospitalIn the event this information is protected by the Federal Confidentiality of Alcohol and Drug Abuse Patient Records regulations: The Federal rules restrict any use of the information to criminally investigate or prosecute any alcohol or drug abuse patient.[facility] HospitalIn the event this information is protected by the Federal Confidentiality of Alcohol and Drug Abuse Patient Records regulations: The Federal rules restrict any use of the information to criminally investigate or prosecute any alcohol or drug abuse patient.[facility] HospitalIn the event this information is protected by the Federal Confidentiality of Alcohol and Drug Abuse Patient Records regulations: The Federal rules restrict any use of the information to criminally investigate or prosecute any alcohol or drug abuse patient.[facility] HospitalIn the event this information is protected by the Federal Confidentiality of Alcohol and Drug Abuse Patient Records regulations: The Federal rules restrict any use of the information to criminally investigate or prosecute any alcohol or drug abuse patient.[facility] HospitalIn the event this information is protected by the Federal Confidentiality of Alcohol and Drug Abuse Patient Records regulations: The Federal rules restrict any use of the information to criminally investigate or prosecute any alcohol or drug abuse patient.[facility] HospitalIn the event this information is protected by the Federal Confidentiality of Alcohol and Drug Abuse Patient Records regulations: The Federal rules restrict any use of the information to criminally investigate or prosecute any alcohol or drug abuse patient.[facility] HospitalIn the event this information is protected by the Federal Confidentiality of Alcohol and Drug Abuse Patient Records regulations: The Federal rules restrict any use of the information to criminally investigate or prosecute any alcohol or drug abuse patient.[facility] HospitalIn the event this information is protected by the Federal Confidentiality of Alcohol and Drug Abuse Patient Records regulations: The Federal rules restrict any use of the information to criminally investigate or prosecute any alcohol or drug abuse patient.[facility] HospitalIn the event this information is protected by the Federal Confidentiality of Alcohol and Drug Abuse Patient Records regulations: The Federal rules restrict any use of the information to criminally investigate or prosecute any alcohol or drug abuse patient.[facility] HospitalIn the event this information is protected by the Federal Confidentiality of Alcohol and Drug Abuse Patient Records regulations: The Federal rules restrict any use of the information to criminally investigate or prosecute any alcohol or drug abuse patient.[facility] HospitalIn the event this information is protected by the Federal Confidentiality of Alcohol and Drug Abuse Patient Records regulations: The Federal rules restrict any use of the information to criminally investigate or prosecute any alcohol or drug abuse patient.[facility] HospitalIn the event this information is protected by the Federal Confidentiality of Alcohol and Drug Abuse Patient Records regulations: The Federal rules restrict any use of the information to criminally investigate or prosecute any alcohol or drug abuse patient.[facility] HospitalIn the event this information is protected by the Federal Confidentiality of Alcohol and Drug Abuse Patient Records regulations: The Federal rules restrict any use of the information to criminally investigate or prosecute any alcohol or drug abuse patient.[facility] HospitalIn the event this information is protected by the Federal Confidentiality of Alcohol and Drug Abuse Patient Records regulations: The Federal rules restrict any use of the information to criminally investigate or prosecute any alcohol or drug abuse patient.[facility] HospitalIn the event this information is protected by the Federal Confidentiality of Alcohol and Drug Abuse Patient Records regulations: The Federal rules restrict any use of the information to criminally investigate or prosecute any alcohol or drug abuse patient.[facility] HospitalIn the event this information is protected by the Federal Confidentiality of Alcohol and Drug Abuse Patient Records regulations: The Federal rules restrict any use of the information to criminally investigate or prosecute any alcohol or drug abuse patient.[facility] HospitalIn the event this information is protected by the Federal Confidentiality of Alcohol and Drug Abuse Patient Records regulations: The Federal rules restrict any use of the information to criminally investigate or prosecute any alcohol or drug abuse patient.[facility] HospitalIn the event this information is protected by the Federal Confidentiality of Alcohol and Drug Abuse Patient Records regulations: The Federal rules restrict any use of the information to criminally investigate or prosecute any alcohol or drug abuse patient.[facility] HospitalIn the event this information is protected by the Federal Confidentiality of Alcohol and Drug Abuse Patient Records regulations: The Federal rules restrict any use of the information to criminally investigate or prosecute any alcohol or drug abuse patient.[facility] HospitalIn the event this information is protected by the Federal Confidentiality of Alcohol and Drug Abuse Patient Records regulations: The Federal rules restrict any use of the information to criminally investigate or prosecute any alcohol or drug abuse patient.[facility] HospitalIn the event this information is protected by the Federal Confidentiality of Alcohol and Drug Abuse Patient Records regulations: The Federal rules restrict any use of the information to criminally investigate or prosecute any alcohol or drug abuse patient.[facility] Reason for Visit (unrecogniz ed section and content) Reason Comments Consult Lung Cancer Reason Comments FMLA Paperwork 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..] HIGH MDM 60 MINUTES Rasheed Perez MD [address] [place] [address] [place] [address] Phone: tel: fax: Referral ID Status Reason Start Date Expiration Date V isits Requested Visits Authorized [id number] Closed PCP Requested Referral 01/09/2025 01/02/2026 1 1 Reason Comments Care Coordination Hospital Admission Reason Comments Dehydration Weakness Reason Comments Patient Update Dizziness Reason Comments Radiology 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 [facility]. provides no warranty or guarantee of the accuracy or completeness of information in this document.
[2025-04-02 17:46] LABS: Ferritin 1464.0 ng/mL (26.0-388.0); Folate 14.80 ng/mL (8.60-58.90)
[2025-04-02] MEDS: 0.9 % SODIUM CHLORIDE 250 ML 150 ML IV (18:30)
[2025-04-02] MEDS: SUCRALFATE 1 GM TABLET PO (21:51)
[2025-04-02] MEDS: ALLOPURINOL 300 MG TABLET PO (21:51)
[2025-04-02] MEDS: SENNOSIDES/DOCUSATE SODIUM 1 TAB TABLET PO (21:52)
[2025-04-02] MEDS: FENTANYL 25 MCG/HR PATCH.TD72 TD (22:02)
[2025-04-03] VITALS (118 sets, daily range): BP systolic 101–127; BP diastolic 58–72; PULSE 80–126; TEMP 36.4–37.1; O2SAT 85–100
[2025-04-03] MEDS: 0.9 % SODIUM CHLORIDE 1,000 ML 50 ML IV ×2 (00:39→17:06)
[2025-04-03] MEDS: VANCOMYCIN HCL 1,000 MG in 0.9 % SODIUM CHLORIDE 250 ML 250 MG IV ×2 (00:41→13:06)
[2025-04-03] MEDS: PIPERACILLIN SODIUM/TAZOBACTAM 3.375 GM in 0.9 % SODIUM CHLORIDE 50 ML IV ×3 (01:38→17:14)
[2025-04-03] MEDS: IPRATROPIUM/ALBUTEROL SULFATE 3 ML AMPUL.NEB IH ×3 (05:10→16:19)
[2025-04-03 05:59] LABS: Hematocrit 27.3 % (42.0-54.0); Hemoglobin 8.5 g/dL (14.0-18.0); Immature Granulocytes Abs Auto 0.04 10^3/uL (0.00-0.03); Immature Granulocytes Pct Auto 0.5 % (0.0-0.5); Lymphocytes Absolute Auto 0.5 10^3/uL (1.2-3.8); Mean Corpuscular HGB Conc 31.1 g/dL (29.9-35.2); Mean Corpuscular Hemoglobin 27.2 pg (25.9-34.0); Mean Corpuscular Volume 87.5 fL (80.0-94.0); Platelet Count 239 10^3/uL (150-450); Red Blood Count 3.12 10^6/uL (4.70-6.10); White Blood Count 8.5 10^3/uL (4.0-11.0)
[2025-04-03] MEDS: PANTOPRAZOLE SODIUM 40 MG TABLET.DR PO (06:17)
[2025-04-03 06:20] LABS: Alanine Aminotransferase 20 U/L (16-63); Albumin Globulin Ratio 0.5; Albumin Level 2.5 g/dL (3.4-5.0); Alkaline Phosphatase 108 U/L (46-116); Anion Gap 16.3; Aspartate Amino Transferase 21 U/L (15-37); Blood Urea Nitrogen 30.0 mg/dL (7.0-18.0); Calcium 9.2 mg/dL (8.5-10.1); Carbon Dioxide 26.2 mmol/L (21.0-32.0); Chloride 104 mmol/L (98-107); Estimated GFR (African America >60 (>=60 mL/min/1.73m^2); Estimated GFR (Non-African Ame >60 (>=60 mL/min/1.73m^2); Globulin 5.0 g/dL; Glucose 135 mg/dL (74-106); Magnesium 2.1 mg/dL (1.8-2.4); Potassium 3.5 mmol/L (3.5-5.1); Sodium 143 mmol/L (136-145); Total Protein 7.5 g/dL (6.4-8.2)
[2025-04-03] MEDS: MIDODRINE HCL 5 MG TABLET 2.5 MG PO ×3 (08:55→17:05)
[2025-04-03] MEDS: METOPROLOL SUCCINATE 50 MG TAB.ER.24H PO (08:55)
[2025-04-03] MEDS: ALLOPURINOL 300 MG TABLET PO ×2 (08:55→21:53)
[2025-04-03] MEDS: SUCRALFATE 1 GM TABLET PO ×4 (08:56→21:53)
[2025-04-03] MEDS: SENNOSIDES/DOCUSATE SODIUM 1 TAB TABLET PO ×2 (08:56→21:52)
[2025-04-03] MEDS: COLCHICINE 0.6 MG TABLET PO (08:56)
[2025-04-03] MEDS: SERTRALINE HCL 50 MG TABLET PO (08:56)
--- NOTE | 2025-04-03 10:30 | CM.NOTE ---
Rounds made with Dr. Hussein, discussed diagnosis and plan of care with pt and . PT and OT will evaluate pt today for discharge planning.
--- NOTE | 2025-04-03 12:23 | P.PN_ITS ---
Progress Note: Subjective Subjective Interval history: Patient seen and examined at bedside. He is accompanied by his in the room. He states that his shortness of breath has somewhat improved. Saturating 95% on room air however he tells me that he does have shortness of breath at times. He was having a lot of constipation however he did have a bowel movement after spending some time in the bathroom. Otherwise he still having to cough no fever overnight. Labs are reassuring today he does have tachycardia which has been there on his recent hospitalizations as well. Nasal swab for MRSA is pending. Blood cultures are also pending. Continues on IV antibiotics Exam Narrative Exam Narrative: General: Frail 64-year-old male chronically ill but not in acute distress lying comfortably in bed saturating 95% on 2 L nasal cannula. Accompanied by the in the room. Skin: Warm but pale, no rash no ecchymosis no purpura. Head: Normocephalic, atraumatic. Neck: Supple, non-tender. No JVD, no lymphadenopathy, no thyromegaly Eye: Pupils are equal, round and EOMI. No scleral icterus. Ears, Nose, Mouth, and Throat: No nasal mucosal hypertrophy. Oral mucosa is moist, no posterior oropharynx erythema, uvula is mid-line Cardiovascular: Tachycardic with rhythm without murmur, gallop or rub. Respiratory: No accessory muscle use, no use accessory muscles no tachypnea and no use of abdominal muscles. No wheezing today, still with decreased air entry on the right lower lung as well as some crackles in this area specifically. Patient is not in respiratory distress when I saw him. Musculoskeletal: Full ROM of all extremities, no calf or popliteal tenderness, no leg swelling, intact peripheral pulses bilateral GI: Abdomen is soft, non-distended, non tender to palpation. No masses apprecia abe. No rebound, guarding, or rigidity noted. Neurological: A&O x4. No cranial nerve dysfunction observed. No truncal ataxia. Moves all extremities. Sensation intact. Constitutional Vital Signs, click to edit/add: Last Vital Signs Temp 97.7 F 04/03/25 04:00 Pulse 115 H 04/03/25 12:00 Resp 22 H 04/03/25 12:00 BP 116/58 04/03/25 11:29 Pulse Ox 95 04/03/25 12:00 O2 Del Method Room Air 04/03/25 12:00 O2 Flow Rate 2 04/02/25 23:43 Progress Note: Objective Labs Labs: Short CBC 04/02/25 04/03/25 Range/Units 12:35 05:29 WBC 8.8 8.5 (4.0-11.0) 10^3/uL Hgb 6.9 L* 8.5 L (14.0-18.0) g/dL Hct 24.0 L 27.3 L (42.0-54.0) % Plt Count 302 239 (150-450) 10^3/uL BMP 04/02/25 04/03/25 13:32 05:29 Sodium 144 143 Potassium 3.5 3.5 Chloride 103 104 Carbon Dioxide 29.1 26.2 BUN 26.0 H 30.0 H Creatinine 0.89 0.84 Glucose 100 135 H Calcium 9.1 9.2 Liver Function 04/02/25 04/03/25 Range/Units 13:32 05:29 Total Bilirubin 0.4 0.9 (0.2-1.0) mg/dL AST 23 21 (15-37) U/L ALT 21 20 (16-63) U/L Alkaline Phosphatase 112 108 (46-116) U/L Albumin 2.5 L 2.5 L (3.4-5.0) g/dL Progress Note: A&P Assessment and Plan (1) Acute hypoxic respiratory failure: (2) HCAP (healthcare-associated pneumonia): (3) Lung cancer: Plan Acute hypoxic respiratory failure in the setting of sepsis secondary to postobstructive pneumonia with immunocompromise state Failure of p.o. 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 Frailty Acute on chronic anemia, likely in the setting of chronic illness and chemotherapy, GI bleed is less likely - Admit patient to stepdown unit - Continue patient on 2 L nasal cannula for now as he seems to be comfortable with the - Start IV vancomycin and IV Zosyn, to be dosed by pharmacy - Obtain sputum culture and MRSA swab - Stop vancomycin if MRSA is negative on the swab - DuoNeb 4 times daily - Adjust antibiotics according to sputum and blood cultures -Obtain occult blood -Monitor hemoglobin closely while the patient is here, if the patient shows any evidence of overt GI bleeding I will transfer him to a facility with a GI/EGD capability -Obtain ferritin, iron profile, TIBC, B12, and folic acid to delineate the patient's anemia etiology - PT/OT eval - I will try to communicate with his oncologist tomorrow - Full code, discussed the goals of care and the plan of management with the patient. I updated in the chart - Plan was discussed in detail with the patient and his . 04/03/2025 his hemoglobin has nicely corrected to 8.5 after 1 unit of packed RBCs confirming my suspicion that this is more of a chronic anemia due to chronic illness as well as from chemotherapy. Patient reports no blood in his stools today or hematochezia or melena. His vitals are stable. With some tachycardia which has been there for a long time. MRSA swab is still pending once negative I will stop his vancomycin we will continue with the IV Zosyn which is dosed by pharmacy. Patient was unable to expectorate sputum to get culture for that. I am expecting patient will need oxygen test on discharge. For now we will continue with IV antibiotic and see how things go. I discussed the plan in detail with the patient and his at bedside. Answered all their questions. Given the patient being on oxycodone and fentanyl. I will add MiraLAX to his senna.
[2025-04-03 12:41] LABS: Reticulocyte Pct Auto 1.66 % (0.60-3.10)
--- NOTE | 2025-04-03 16:03 | SWNOTE1 ---
SW met with pt to discuss dc needs. Pt lives at home with his . Pt uses a walker at home. Pt is going to outpt therapy, but stated he does not feel it is helping. He stated he has been doing exercises at home as well. SW did talk to him about home health or going to SNF. He voiced he does not want to go to SNF for rehab. He is unsure about home health at this time. SW to [place] back with pt tomorrow.
[2025-04-03] MEDS: POLYETHYLENE GLYCOL 3350 17 GM POWDER PACKET PO (17:07)
[2025-04-03] MEDS: BENZONATATE 100 MG CAPSULE 200 MG PO (18:05)
[2025-04-03] MEDS: MIRTAZAPINE 15 MG TABLET 7.5 MG PO (21:53)
[2025-04-04] VITALS (31 sets, daily range): BP systolic 123–132; BP diastolic 60–75; PULSE 93–116; TEMP 36.7–37.3; O2SAT 91–99
[2025-04-04] MEDS: VANCOMYCIN HCL 1,000 MG in 0.9 % SODIUM CHLORIDE 250 ML 250 MG IV ×2 (01:13→12:55)
[2025-04-04] MEDS: PIPERACILLIN SODIUM/TAZOBACTAM 3.375 GM in 0.9 % SODIUM CHLORIDE 50 ML IV ×3 (02:20→17:19)
[2025-04-04 04:08] LABS: Vitamin B12 959 pg/mL (232-1245)
[2025-04-04] MEDS: PANTOPRAZOLE SODIUM 40 MG TABLET.DR PO (05:36)
[2025-04-04] MEDS: ACETAMINOPHEN 325 MG TABLET 650 MG PO (05:42)
[2025-04-04 06:22] LABS: Hematocrit 25.4 % (42.0-54.0); Hemoglobin 8.1 g/dL (14.0-18.0); Immature Granulocytes Abs Auto 0.03 10^3/uL (0.00-0.03); Immature Granulocytes Pct Auto 0.3 % (0.0-0.5); Lymphocytes Absolute Auto 0.6 10^3/uL (1.2-3.8); Mean Corpuscular HGB Conc 31.9 g/dL (29.9-35.2); Mean Corpuscular Hemoglobin 27.5 pg (25.9-34.0); Mean Corpuscular Volume 86.1 fL (80.0-94.0); Platelet Count 240 10^3/uL (150-450); Red Blood Count 2.95 10^6/uL (4.70-6.10); White Blood Count 9.7 10^3/uL (4.0-11.0)
[2025-04-04 06:39] LABS: Alanine Aminotransferase 15 U/L (16-63); Albumin Globulin Ratio 0.6; Albumin Level 2.2 g/dL (3.4-5.0); Alkaline Phosphatase 96 U/L (46-116); Anion Gap 14.3; Aspartate Amino Transferase 21 U/L (15-37); Blood Urea Nitrogen 22.0 mg/dL (7.0-18.0); Calcium 8.6 mg/dL (8.5-10.1); Carbon Dioxide 26.7 mmol/L (21.0-32.0); Chloride 108 mmol/L (98-107); Estimated GFR (African America >60 (>=60 mL/min/1.73m^2); Estimated GFR (Non-African Ame >60 (>=60 mL/min/1.73m^2); Globulin 3.9 g/dL; Glucose 97 mg/dL (74-106); Magnesium 1.8 mg/dL (1.8-2.4); Potassium 3.0 mmol/L (3.5-5.1); Sodium 146 mmol/L (136-145); Total Protein 6.1 g/dL (6.4-8.2)
[2025-04-04] MEDS: MIDODRINE HCL 5 MG TABLET 2.5 MG PO ×3 (08:00→16:15)
[2025-04-04] MEDS: ALLOPURINOL 300 MG TABLET PO ×2 (08:01→21:28)
[2025-04-04] MEDS: SUCRALFATE 1 GM TABLET PO ×4 (08:01→21:29)
[2025-04-04] MEDS: COLCHICINE 0.6 MG TABLET PO (08:01)
[2025-04-04] MEDS: SERTRALINE HCL 50 MG TABLET PO (08:01)
[2025-04-04] MEDS: METOPROLOL SUCCINATE 50 MG TAB.ER.24H PO (08:01)
[2025-04-04] MEDS: SENNOSIDES/DOCUSATE SODIUM 1 TAB TABLET PO ×2 (08:01→21:29)
--- NOTE | 2025-04-04 09:56 | OT.DAILY ---
Occupational Therapy Daily Note OT Inpatient Daily Visit Note Start: 04/03/25 10:14 Freq: Status: Active Protocol: Document 04/04/25 09:49 [id number] (Rec: 04/04/25 09:56 [id number]) OT Visit Details Time In/Time Out Time In 09:27 Time Out 09:47 OT Treatment Plan Subjective Subjective Pt sleeping upon arrival. Alert and oriented when waking. Objective Objective CGA lying supine to EOB, able to maintain TRAVIS while seated. Denies dizziness or nausea. [id number] transfer from bed to walker with Min A for LOB, ambulatory to recliner chair. 1-3 cues to maintain safety techniques with [id number] to recliner chair. Pt sitting for 1x min and report need for toileting. Successful BM. While seated Pt able to doff soiled brief, donned new brief while seated. Assessment Assessment Tolerated treatment well. Agreeable and cooperative. Continue OT POC. OT Recreation Aide Timed Codes Self-Snf 20 Management minutes ( minutes) Self-Snf 2 Management units
[2025-04-04] MEDS: POTASSIUM CHLORIDE 10 MEQ ER TABLET 40 MEQ PO (10:04)
--- NOTE | 2025-04-04 10:50 | CM.NOTE ---
Rounds made with Dr. Hussein, no discharge today. Continue treatment as ordered, plan of care reviewed with pt.
--- NOTE | 2025-04-04 11:58 | P.PN_ITS ---
Progress Note: Subjective Subjective Interval history: Patient seen and examined at bedside. States that he feels better today. He is saturating 97% on room air. Still with some tachypnea and increased work of breathing though no fever overnight. Hemoglobin has been stable with no hematochezia or melena or nausea or vomiting. He did have a bowel movement yesterday. Exam Narrative Exam Narrative: General: Frail 64-year-old male chronically ill but not in acute distress lying comfortably in bed saturating 97% on room air. Accompanied by the in the room. Skin: Warm but pale, no rash no ecchymosis no purpura. Head: Normocephalic, atraumatic. Neck: Supple, non-tender. No JVD, no lymphadenopathy, no thyromegaly Eye: Pupils are equal, round and EOMI. No scleral icterus. Ears, Nose, Mouth, and Throat: No nasal mucosal hypertrophy. Oral mucosa is moist, no posterior oropharynx erythema, uvula is mid-line Cardiovascular: Tachycardic with rhythm without murmur, gallop or rub. Respiratory: No accessory muscle use, no use accessory muscles and no use of abdominal muscles. No wheezing today, still with decreased air entry on the right lower lung as well as some crackles in this area specifically. Does have some tachypnea, his work of breathing is fine though Musculoskeletal: Full ROM of all extremities, no calf or popliteal tenderness, no leg swelling, intact peripheral pulses bilateral GI: Abdomen is soft, non-distended, non tender to palpation. No masses appreciated. No rebound, guarding, or rigidity noted. Neurological: A&O x4. No cranial nerve dysfunction observed. No truncal ataxia. Moves all extremities. Sensation intact. Constitutional Vital Signs, click to edit/add: Last Vital Signs Temp 98.1 F 04/04/25 08:00 Pulse 96 H 04/04/25 11:30 Resp 33 H 04/04/25 11:30 BP 123/75 04/04/25 08:00 Pulse Ox 97 04/04/25 11:41 O2 Del Method Room Air 04/04/25 11:41 O2 Flow Rate 2 04/04/25 08:30 Progress Note: Objective Labs Labs: Short CBC 04/04/25 Range/Units 06:02 WBC 9.7 (4.0-11.0) 10^3/uL Hgb 8.1 L (14.0-18.0) g/dL Hct 25.4 L (42.0-54.0) % Plt Count 240 (150-450) 10^3/uL BMP 04/04/25 06:02 Sodium 146 H Potassium 3.0 L Chloride 108 H Carbon Dioxide 26.7 BUN 22.0 H Creatinine 0.65 L Glucose 97 Calcium 8.6 Liver Function 04/04/25 Range/Units 06:02 Total Bilirubin 0.7 (0.2-1.0) mg/dL AST 21 (15-37) U/L ALT 15 L (16-63) U/L Alkaline Phosphatase 96 (46-116) U/L Albumin 2.2 L (3.4-5.0) g/dL Progress Note: A&P Assessment and Plan (1) Acute hypoxic respiratory failure: (2) HCAP (healthcare-associated pneumonia): (3) Lung cancer: Plan Acute hypoxic respiratory failure in the setting of sepsis secondary to postobstructive pneumonia with immunocompromise state Failure of p.o. 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 Frailty Acute on chronic anemia, likely in the setting of chronic illness and chemotherapy, GI bleed is less likely Hypokalemia and Hypernatremia, likely due to poor oral intake - Admit patient to stepdown unit - Continue patient on 2 L nasal cannula for now as he seems to be comfortable with the - Start IV vancomycin and IV Zosyn, to be dosed by pharmacy - Obtain sputum culture and MRSA swab - Stop vancomycin if MRSA is negative on the swab - DuoNeb 4 times daily - Adjust antibiotics according to sputum and blood cultures -Obtain occult blood -Monitor hemoglobin closely while the patient is here, if the patient shows any evidence of overt GI bleeding I will transfer him to a facility with a GI/EGD capability -Obtain ferritin, iron profile, TIBC, B12, and folic acid to delineate the patient's anemia etiology - PT/OT eval - I will try to communicate with his oncologist tomorrow - Full code, discussed the goals of care and the plan of management with the patient. I updated in the chart - Plan was discussed in detail with the patient and his . 04/03/2025 his hemoglobin has nicely corrected to 8.5 after 1 unit of packed RBCs confirming my suspicion that this is more of a chronic anemia due to chronic illness as well as from chemotherapy. Patient reports no blood in his stools today or hematochezia or melena. His vitals are stable. With some tachycardia which has been there for a long time. MRSA swab is still pending once negative I will stop his vancomycin we will continue with the IV Zosyn which is dosed by pharmacy. Patient was unable to expectorate sputum to get cul ture for that. I am expecting patient will need oxygen test on discharge. For now we will continue with IV antibiotic and see how things go. I discussed the plan in detail with the patient and his at bedside. Answered all their questions. Given the patient being on oxycodone and fentanyl. I will add MiraLAX to his senna. 04/04/2025 patient's hemoglobin continues to be stable. He continues to be on IV Zosyn and IV vancomycin. Patient said that he feels somewhat better today. His labs show hypokalemia which I repleted. He is currently on bowel imaging at that is working for him. He needed something for sleep, we do not have melatonin unfortunately here in house. I will add zolpidem to his medication regimen.
[2025-04-04] MEDS: SODIUM CHLORIDE 0.45 % 1,000 ML 50 ML IV (12:56)
--- NOTE | 2025-04-04 14:19 | SWNOTE1 ---
SW stopped in to speak with pt in regards to discharge plans. SW did offer outpt therapy or home health services. Pt voiced he does exercises on his own at home and he tried outpt therapy and he does not feel like he needs either services at this time. At this time pt is refusing Home health and outpt therapy.
[2025-04-04] MEDS: OXYCODONE HCL 5 MG TABLET PO (16:14)
[2025-04-04] MEDS: HYDROXYZINE HCL 25 MG TABLET PO ×2 (16:53→21:28)
[2025-04-04] MEDS: MIRTAZAPINE 15 MG TABLET 7.5 MG PO (21:28)
[2025-04-05] VITALS (57 sets, daily range): BP systolic 128–153; BP diastolic 73–86; PULSE 37–126; TEMP 36.6–38.1; O2SAT 87–99
[2025-04-05] MEDS: VANCOMYCIN HCL 1,250 MG in 0.9 % SODIUM CHLORIDE 250 ML 250 MG IV ×2 (00:49→12:54)
[2025-04-05] MEDS: PIPERACILLIN SODIUM/TAZOBACTAM 3.375 GM in 0.9 % SODIUM CHLORIDE 50 ML IV ×3 (02:12→18:23)
[2025-04-05] MEDS: PANTOPRAZOLE SODIUM 40 MG TABLET.DR PO (05:02)
[2025-04-05 06:11] LABS: Hematocrit 26.1 % (42.0-54.0); Hemoglobin 8.0 g/dL (14.0-18.0); Immature Granulocytes Abs Auto 0.02 10^3/uL (0.00-0.03); Immature Granulocytes Pct Auto 0.2 % (0.0-0.5); Lymphocytes Absolute Auto 0.6 10^3/uL (1.2-3.8); Mean Corpuscular HGB Conc 30.7 g/dL (29.9-35.2); Mean Corpuscular Hemoglobin 26.7 pg (25.9-34.0); Mean Corpuscular Volume 87.0 fL (80.0-94.0); Platelet Count 225 10^3/uL (150-450); Red Blood Count 3.00 10^6/uL (4.70-6.10); White Blood Count 9.3 10^3/uL (4.0-11.0)
[2025-04-05 06:33] LABS: Alanine Aminotransferase 18 U/L (16-63); Albumin Globulin Ratio 0.5; Albumin Level 2.1 g/dL (3.4-5.0); Alkaline Phosphatase 97 U/L (46-116); Anion Gap 13.5; Aspartate Amino Transferase 17 U/L (15-37); Blood Urea Nitrogen 14.0 mg/dL (7.0-18.0); Calcium 8.4 mg/dL (8.5-10.1); Carbon Dioxide 24.8 mmol/L (21.0-32.0); Chloride 107 mmol/L (98-107); Estimated GFR (African America >60 (>=60 mL/min/1.73m^2); Estimated GFR (Non-African Ame >60 (>=60 mL/min/1.73m^2); Globulin 4.0 g/dL; Glucose 93 mg/dL (74-106); Magnesium 1.7 mg/dL (1.8-2.4); Potassium 3.3 mmol/L (3.5-5.1); Sodium 142 mmol/L (136-145); Total Protein 6.1 g/dL (6.4-8.2)
[2025-04-05] MEDS: SUCRALFATE 1 GM TABLET PO (07:44)
--- NOTE | 2025-04-05 09:21 | XR_ITS ---
The [place] [id number] Patient Name: JATIN KOCH MRN: [id number] date: 1960 Sex: M Assigned Patient Location: Current Patient Location: Accession/Order Number: [id number] Exam Date: 04/05/2025 09:40 Report Date: 04/05/2025 10:02 At the request of: KARTHIK FROST MD Procedure: XR chest 1V PORTABLE AP ERECT CHEST 0917 hours CLINICAL HISTORY: Pneumonia follow up COMPARISON: CT 04/02/2025 and plain films 02/28/2025 A left-sided pacemaker is seen. There is slight elevation of the right hemidiaphragm. The cardiac and mediastinal contours are similar. There is no suspected vascular congestion. There is a persistent band of consolidation extending from the right hilum to the lateral chest wall. There is also hazy airspace opacity at the midportion of the left lung. There is no effusion or pneumothorax. The osseous structures are intact. XR/XR chest 1V IMPRESSION: CONTINUED BILATERAL PARENCHYMAL CHANGES, PROBABLY NOT SIGNIFICANTLY CHANGED WHEN ALLOWING FOR DIFFERENCES IN MODALITY. Impression dictated by: Josseline Shahid M.D. 04/05/2025 10:02 AM Dictation Location: [place] [address] Electronically authenticated by: [id number] Y Date: 04/05/2025 10:02
--- NOTE | 2025-04-05 10:04 | CA_ITS ---
Patient Name: JATIN KOCH MR#: [id number] : 1960 Exam Date: 04/05/2025 Ordering Doctor: KARTHIK FROST ECHOCARDIOGRAM REPORT PROCEDURE: CA ECHO LIMITED INDICATIONS: platypnea/orthopnea, pacemaker, lung cancer, hypertension COMPARISON: None. DESCRIPTION: Limited ECHOCARDIOGRAM Real-time transthoracic echocardiography with 2D and M-mode performed. QUALITY: Technical quality was good. Limited echocardiogram per physician order. LEFT VENTRICLE: Normal chamber size. Normal left ventricular wall thickness. Systolic function is normal. The septum is abnormal in motion likely due to pacing. LV EF: Normal left ventricular ejection fraction, (55%). DIASTOLIC: ATRIAL SEPTUM: LEFT ATRIUM: Normal chamber size. RIGHT ATRIUM: Normal chamber size. Pacer wire noted. RIGHT VENTRICLE: Normal chamber size. Normal systolic function. Pacer wire noted. TRICUSPID VALVE: Normal mobility and thickness. MITRAL VALVE: Normal mobility and thickness. Mild mitral annular calcification. AORTIC VALVE: Normal trileaflet appearance. Mildly calcified aortic valve. Mildly diminished mobility. AORTIC ROOT: Normal diameter and appearance, measuring 3.2 cm. PULMONIC VALVE: Not well visualized. PERICARDIUM: No evidence of pericardial effusion. IVC: Collapses with inspiration. IVC is normal in size. PLEURA: CONCLUSION: 1. Normal left ventricular size and systolic function. Estimated LVEF is 55%. 2. Normal right ventricular size and systolic function. 3. No pericardial effusion. 4. Limited study performed with no Doppler interrogation as requested. Adult Echocardiography Procedure Report Left Ventricle LVEDD (3.7 - 5.6 cm): 4.42 cm LVESD (2.2 - 4.0 cm): 2.68 cm LVIVS thickness (0.6 - 1.2 cm): 0.99 cm LVPW thickness (0.5 - 1.0 cm): 0.96 cm LVOT Diameter 2.28 cm Left Atrium LA Volume Index (2D A2C): 20.98 ml/m2 Left Atrium Systolic Dimension: 3.91 cm Mitral Valve Right Ventricle Aorta AO Root Diam: 3.23 cm Aortic Valve Tricuspid Valve Pulmonic Valve Right Atrium Right Atrium Systolic Pressure: 48.67 ml, 48.67 ml Dictated by: Сергей Anderson M.D. on 04/05/2025 at 17:35 Approved by: Сергей Anderson M.D. on 04/05/2025 at 17:39
[2025-04-05] MEDS: HYDROXYZINE HCL 25 MG TABLET PO (10:10)
[2025-04-05] MEDS: COLCHICINE 0.6 MG TABLET PO (10:11)
[2025-04-05] MEDS: ALLOPURINOL 300 MG TABLET PO (10:15)
[2025-04-05] MEDS: SERTRALINE HCL 50 MG TABLET PO (10:16)
[2025-04-05] MEDS: POTASSIUM CHLORIDE 10 MEQ ER TABLET 20 MEQ PO (10:17)
[2025-04-05] MEDS: HEPARIN SODIUM (PORCINE) 5,000 UNIT/ML VIAL 5000 UNIT SUBQ ×2 (10:20→18:22)
[2025-04-05] MEDS: METOPROLOL SUCCINATE 50 MG TAB.ER.24H 75 MG PO (10:45)
[2025-04-05] MEDS: IPRATROPIUM/ALBUTEROL SULFATE 3 ML AMPUL.NEB IH ×2 (11:04→16:17)
--- NOTE | 2025-04-05 11:23 | P.PN_ITS ---
Progress Note: Subjective Subjective Interval history: Patient seen and examined at bedside. Patient is accompanied by his in the room. He states that he feels like he is having shallow breathing and he gets short of breath and out of breath with anything he does. He does not report any worsening in his cough. He does desaturate when he walks from the bed to the bathroom. Has no fever no chills. His MRSA swab came back positive Exam Narrative Exam Narrative: General: Frail 64-year-old male chronically ill but not in acute distress lying comfortably in bed saturating 97% on 2 L nasal cannula Skin: Warm but pale, no rash no ecchymosis no purpura. Head: Normocephalic, atraumatic. Neck: Supple, non-tender. No JVD, no lymphadenopathy, no thyromegaly Eye: Pupils are equal, round and EOMI. No scleral icterus. Ears, Nose, Mouth, and Throat: No nasal mucosal hypertrophy. Oral mucosa is moist, no posterior oropharynx erythema, uvula is mid-line Cardiovascular: Tachycardic with rhythm without murmur, gallop or rub. Respiratory: Does have some shallow breathing, but there is no accessory muscle use, no use accessory muscles no tachypnea and no use of abdominal muscles. Bilateral expiratory wheezing with decreased air entry on the right lower lung as well as some crackles in this area specifically. Patient is not in respiratory distress when I saw him Musculoskeletal: Full ROM of all extremities, no calf or popliteal tenderness, no leg swelling, intact peripheral pulses bilateral GI: Abdomen is soft, non-distended, non tender to palpation. No masses appreciated. No rebound, guarding, or rigidity noted. Neurological: A&O x4. No cranial nerve dysfunction observed. No truncal ataxia. Moves all extremities. Sensation intact. Constitutional Vital Signs, click to edit/add: Last Vital Signs Temp 98.7 F 04/05/25 08:00 Pulse 111 H 04/05/25 11:06 Resp 20 04/05/25 08:00 BP 153/86 H 04/05/25 08:00 Pulse Ox 97 04/05/25 11:06 O2 Del Method Vapotherm 04/05/25 11:06 O2 Flow Rate 40 04/05/25 11:06 FiO2 3 04/05/25 11:06 Progress Note: Objective Labs Labs: Short CBC 04/05/25 Range/Units 05:32 WBC 9.3 (4.0-11.0) 10^3/uL Hgb 8.0 L (14.0-18.0) g/dL Hct 26.1 L (42.0-54.0) % Plt Count 225 (150-450) 10^3/uL BMP 04/05/25 05:32 Sodium 142 Potassium 3.3 L Chloride 107 Carbon Dioxide 24.8 BUN 14.0 Creatinine 0.65 L Glucose 93 Calcium 8.4 L Liver Function 04/05/25 Range/Units 05:32 Total Bilirubin 0.6 (0.2-1.0) mg/dL AST 17 (15-37) U/L ALT 18 (16-63) U/L Alkaline Phosphatase 97 (46-116) U/L Albumin 2.1 L (3.4-5.0) g/dL Progress Note: A&P Assessment and Plan (1) Acute hypoxic respiratory failure: (2) HCAP (healthcare-associated pneumonia): (3) Lung cancer: Plan Acute hypoxic respiratory failure in the setting of sepsis secondary to postobstructive pneumonia with immunocompromise state Failure of p.o. 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 Frailty Acute on chronic anemia, likely in the setting of chronic illness and chemoth erapy, GI bleed is less likely - Admit patient to stepdown unit - Continue patient on 2 L nasal cannula for now as he seems to be comfortable with the - Start IV vancomycin and IV Zosyn, to be dosed by pharmacy - Obtain sputum culture and MRSA swab - Stop vancomycin if MRSA is negative on the swab - DuoNeb 4 times daily - Adjust antibiotics according to sputum and blood cultures -Obtain occult blood -Monitor hemoglobin closely while the patient is here, if the patient shows any evidence of overt GI bleeding I will transfer him to a facility with a GI/EGD capability -Obtain ferritin, iron profile, TIBC, B12, and folic acid to delineate the patient's anemia etiology - PT/OT eval - I will try to communicate with his oncologist tomorrow - Full code, discussed the goals of care and the plan of management with the patient. I updated in the chart - Plan was discussed in detail with the patient and his . 04/05/2025 patient with worsening shortness of breath. I ordered Vapotherm and will continue IV vancomycin and Zosyn for now. Chest x-ray did not show any acute changes. I may go ahead and order CT chest if there is no improvement in next 24 hours. He is maintaining good saturation however he does report shortness of breath when he sits up improves with supine position. I am wondering if he does have a component of platypnea?orthodeoxia syndrome so I will order a echo for now. He does not have any symptoms of fluid overload no leg swelling or JVD. Discussed the plan with his and answered all her questions explained to her that unfortunately given his lung cancer along with his pneumonia his hearing is slower than others and it is more complicated. Will continue to monitor him closely
--- NOTE | 2025-04-05 12:02 | CM.NOTE ---
Rounds made with Dr. Hussein. Pt reports still feeling out of breath with exertion. New orders placed for Vapotherm. Will continue to monitor. No discharge today.
[2025-04-05] MEDS: LORAZEPAM 0.5 MG TABLET 0.25 MG PO (14:46)
--- NOTE | 2025-04-05 17:28 | CT_ITS ---
[address] [address] Patient Name: JATIN KOCH MRN: [id number] date: 1960 Sex: M Assigned Patient Location: Current Patient Location: Accession/Order Number: [id number] Exam Date: 04/05/2025 18:21 Report Date: 04/05/2025 19:12 At the request of: KARTHIK FROST MD Procedure: CT angio chest CTA chest CLINICAL DATA: Abdominal pain, shortness of breath right lower lobe cancer, rule out pulmonary embolism. TECHNIQUE: Intravenous contrast-enhanced CT angiography of the chest was performed. Axial, sagittal, coronal, and 3D-dimensional reconstructions were created and reviewed. These CT exams were performed using one or more of the following dose reduction techniques: Automated exposure control, adjustment of the mA and/or kV according to patient size, or use of iterative reconstruction technique. COMPARISON: 04/02/2025. FINDINGS: Suboptimal timing to evaluate for pulmonary embolism. No large saddle embolism or lobar embolism identified with constraints of this examination. Cardiomegaly. Pacemaker leads. No bulky mediastinal or hilar adenopathy. Small right-sided effusion. Evolution of the geographic airspace disease. Right lower lobe nodule 8 x 8 mm. No pneumothorax. Trace left-sided effusion. No aortic dissection. Upper abdominal structures grossly unremarkable. Degenerative changes of the thoracic spine. CT/CT angio chest IMPRESSION: Suboptimal contrast bolus. No definite large pulmonary embolism identified. Evolving multifocal groundglass opacities may suggest multifocal atypical viral pneumonia 8 millimeter right lower lobe nodule. This may be followed Impression dictated by: Marcell Arroyo M.D. 04/05/2025 7:12 PM Dictation Location: [facility] Electronically authenticated by: [id number] Y Date: 04/05/2025 19:12
--- NOTE | 2025-04-05 17:35 | ECG_ITS ---
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 Measurements Intervals [place] Rate: 122 P: 262 MO: 206 QRS: -79 QRSD: 140 T: 80 QT: 360 QTc: 432 Interpretive Statements 1120 Sinus tachycardia VENTRICULAR-PACED RHYTHM 9150 abnormal ECG Compared to ECG 04/02/2025 12:21:57 No significant changes Electronically Signed On 04-05-2025 19:23:10 EDT by AGATHA SALAZAR M.D.
--- NOTE | 2025-04-05 17:41 | CT_ITS ---
The [address] [address] Patient Name: JATIN KOCH MRN: [id number] date: 1960 Sex: M Assigned Patient Location: [place] Current Patient Location: Accession/Order Number: [id number] Exam Date: 04/05/2025 18:21 Report Date: 04/05/2025 19:16 At the request of: KARTHIK FROST MD Procedure: CT abdomen pelvis w con CT ABDOMEN AND PELVIS WITH INTRAVENOUS CONTRAST: CLINICAL HISTORY: Abdominal pain COMPARISON: 12/15/2024 TECHNIQUE: Spiral images were obtained through the abdomen and pelvis following the administration of intravenous contrast. This CT exam was performed using one or more following dose reduction techniques: Automated exposure control, adjustment of the mA and/or kV according to patient size, or use of iterative reconstruction technique. FINDINGS: Lung Bases: [Small effusions. Atelectasis. 8mm right lower lobe nodule.] Organs:Liver, spleen, adrenals, pancreas unremarkable. Right renal cyst. No hydronephrosis. Subcentimeter left renal hypodensities noted possible cysts too small for resolution. Punctate right lower pole calculi nonobstructive.[ GI: Mild to moderate stool burden. Scattered small and large bowel air-fluid levels. Colonic diverticulosis. 7 mm appendix without definite surrounding fat stranding.[ Pelvis:[Bladder wall thickening. Small right sided inguinal hernia. Prostate grossly unremarkable.] Peritoneum/Retroperitoneum:Moderate severe plaque involving the nonaneurysmal aorta. 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 Degenerative changes of the lumbar spine.[ CT/CT abdomen pelvis w con IMPRESSION: Scattered bowel air-fluid levels noted could represent nonspecific enteritis. No evidence of acute inflammatory process or bowel obstruction. Bladder wall thickening, correlate with urinalysis findings. Cystitis can BE considered. Impression dictated by: Marcell Arroyo M.D. 04/05/2025 7:16 PM Dictation Location: [place] [address] Electronically authenticated by: [id number] Y Date: 04/05/2025 19:16
[2025-04-05 17:52] LABS: ABG PCO2 30.6 mmHg (35.0-45.0); Allen Test POSITIVE (POSITIVE); HCO3 ABG 25.2 mmol/L (22.0-26.0); Liters per Minute 6; O2 Mode SIMPLE MASK; Oxygen Saturation ABG 95.9 %; PO2 ABG 66.7 mmHg (80.0-100.0); Puncture Site RR
[2025-04-05] MEDS: 0.9 % SODIUM CHLORIDE 1,000 ML 50 ML IV (18:23)
[2025-04-05 18:39] LABS: Lactate/Lactic Acid 1.3 mmol/L (0.4-2.0)
[2025-04-05] MEDS: MAGNESIUM SULFATE/D5W 1 GM/100 ML PREMIX IV (19:16)
--- NOTE | 2025-04-05 19:24 | P.DS_ITS ---
DS: Providers Provider Date of admission: 04/02/25 17:03 Primary care physician: CARLOS COLLINS Consults: 04/02/25 Consult to Dietitian Routine Reason for consultation: weight loss 04/02/25 16:21 Consult to Pharmacy Routine Consulting Provider: Reason for consultation: Multifocal pneumonia , HCAP 04/02/25 16:25 Occupational Therapy Eval and Treat Routine Reason for consultation: weakness Physical Therapy Eval and Treat Routine Reason for consultation: weakness Anticipated date of discharge: 04/05/25 DS: Diagnosis Discharge Diagnosis (1) Acute hypoxic respiratory failure: (2) HCAP (healthcare-associated pneumonia): (3) Lung cancer: DS: Summary Hospital Course Hospital Course: This is a 64-year-old male with past medical show squamous cell lung cancer, moderate to 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 Patient was referred to radiation oncology, he is done with his radiation therapy around 1 month ago, completed cisplatin etoposide chemo on 02/09/2025, the plan was to get PET scan 4 weeks post radiation to start him on durvalumab (immunotherapy) for maintenance, pacemaker placement due to complete heart block back in , Gout, depression/anxiety, recurrent hospitalization with postobstructive pneumonia. He presents today with 6-day history of shortness of breath. Is obtained from the patient, ED staff, as well as patient chart and I was able to read patient's [facility]. Pt states that around 6 days ago he started having shortness of breath when he tries to exert himself or walk, associated with productive cough of brownish sputum. He denies any fever or chills or nausea or vomiting or palpitation or chest pain or dizziness or syncope. He states that he follows with his oncologist and he was prescribed ofloxacin which he continued 5 days off and last dose was on Wednesday however yesterday, Wednesday, in the evening he started complaining of worsening his symptoms and he decided today to come to the ED for further workup and management. He follows with Dr. Kvng Perez at [facility], last seen on 03/28-, he was complaining of cough and mild fever and he was sent on levofloxacin which he completed 5 days of which last dose was yesterday. Workup in the ED included CBC showing hemoglobin of 6.9 with normal MCV, platelets were 302K as well as leukocyte of where 8.8 K. With left shift and bandemia of 88%. Chemistry was unremarkable. CTA chest showed no evidence of PE, it did show continued esophageal wall thickening as well as mediastinal and right hilar adenopathy along with additional multifocal airspace opacity in the right lower lobe lung nodule. ED staff reach out to the patient's oncologist recommended this admission for IV antibiotic and preferred and getting hospital- acquired organisms covered as well. Patient to be admitted under hospitalist service for further workup and management. Acute hypoxic respiratory failure in the setting of sepsis secondary to postobstructive pneumonia with immunocompromise state Failure of p.o. 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 Frailty Acute on chronic anemia, likely in the setting of chronic illness and chemotherapy, GI bleed is less likely - Admit patient to stepdown unit - Continue patient on 2 L nasal cannula for now as he seems to be comfortable with the - Start IV vancomycin and IV Zosyn, to be dosed by pharmacy - Obtain sputum culture and MRSA swab - Stop vancomycin if MRSA is negative on the swab - DuoNeb 4 times daily - Adjust antibiotics according to sputum and blood cultures -Obtain occult blood -Monitor hemoglobin closely while the patient is here, if the patient shows any evidence of overt GI bleeding I will transfer him to a facility with a GI/EGD capability -Obtain ferritin, iron profile, TIBC, B12, and folic acid to delineate the patient's anemia etiology - PT/OT eval - I will try to communicate with his oncologist tomorrow - Full code, discussed the goals of care and the plan of management with the patient. I updated in the chart - Plan was discussed in detail with the patient and his . 04/05/2025 patient with worsening shortness of breath. I ordered Vapotherm and will continue IV vancomycin and Zosyn for now. Chest x-ray did not show any acute changes. I may go ahead and order CT chest if there is no improvement in next 24 hours. He is maintaining good saturation however he does report shortness of breath when he sits up improves with supine position. I am wondering if he does have a component of platypnea?orthodeoxia syndrome so I wi ll order a echo for now. He does not have any symptoms of fluid overload no leg swelling or JVD. Discussed the plan with his and answered all her questions explained to her that unfortunately given his lung cancer along with his pneumonia his hearing is slower than others and it is more complicated. Will continue to monitor him closely ADDENDUM Was informed by nursing team that patient is tachypneic and his saturation was in late 80s while on high flow. Pt is a mouth breather, was placed on a simple mask of 6 liters improved his work of breathing and saturationw as in 96/97%. he was still having some tachypnea and shallow breathing. He also benefited from ativan at bedside. Spoke to his about the plan of management. Ordered ABG, STAT EKG, trop, lactic acid, blood cultures, CTA chest, abdomen pelvis, I discussed with her the need for close monitoring for him, will transfer him to [facility]. We just started the process. Addendum Patient accepted at [facility] by Dr. Olivaerz, he has a bed already at [facility]. Pending transport with ALS Spoke to the pt, his , and son in details. Reviewed with them his ABG results, as well as his CT angio chest results and CT abdomen pelvis. CT angio of the chest was negative for PE, I did reach out to Dr. Arroyo, radiologist national park tour guide who did read the study, states that the study was suboptimal however he does not see any large PE or saddle PE or right heart strain. Echo was done earlier this morning that did not show any right heart strain as well. Patient will be transferred to [facility]. Discussed all the findings with the patient and son. Pt is saturating well on 6 liter mask, still tachycardic though. Also I spoke to Pulm national park tour guide at [facility], discussed with him the findings and laboratory findings, did not recommend lovenox as the likelihood for PE is very unlikely. Time Spent with Patient Time attestation: Total time spent providing and/or coordinating discharge services: Exam Constitutional Vital Signs, click to edit/add: Last Vital Signs Temp 99.8 F 04/05/25 17:52 Pulse 123 H 04/05/25 18:00 Resp 42 H 04/05/25 17:52 BP 135/82 04/05/25 12:00 Pulse Ox 92 L 04/05/25 17:52 O2 Del Method Simple Mask 04/05/25 17:52 O2 Flow Rate 6 04/05/25 17:52 FiO2 30 04/05/25 16:19 DS: Data Data Completed and Pending Labs on day of discharge: Labs from last 24 hours 04/05/25 04/05/25 04/05/25 18:00 17:48 17:42 WBC RBC Hgb Hct MCV MCH MCHC RDW Plt Count MPV Neut % (Auto) Lymph % (Auto) [place]er % (Auto) Eos % (Auto) Baso % (Auto) Neut # (Auto) Lymph # (Auto) [place] # (Auto) Eos # (Auto) Baso # (Auto) Abs Immat Gran (auto) Imm/Tot Granulo (auto) Puncture Site Rr ABG pH 7.523 H* ABG pCO2 30.6 L ABG pO2 66.7 L ABG HCO3 25.2 ABG O2 Saturation 95.9 ABG Base Excess 2.4 H Parvez Test Positive O2 Liters/Min 6 Sodium Potassium Chloride Carbon Dioxide Anion Gap BUN Creatinine Est GFR ( Amer) Est GFR (Non-Af Amer) BUN/Creatinine Ratio Glucose Lactate 1.3 Calcium Magnesium Total Bilirubin AST ALT Alkaline Phosphatase Troponin I High Sens 13.8 Total Protein Albumin Globulin Albumin/Globulin Ratio 04/05/25 05:32 WBC 9.3 RBC 3.00 L Hgb 8.0 L Hct 26.1 L MCV 87.0 MCH 26.7 MCHC 30.7 RDW 19.8 H Plt Count 225 MPV 10.6 Neut % (Auto) 81.8 H Lymph % (Auto) 6.0 L [place] % (Auto) 8.1 Eos % (Auto) 3.6 Baso % (Auto) 0.3 Neut # (Auto) 7.6 H Lymph # (Auto) 0.6 L [place]ting[place] # (Auto) 0.8 Eos # (Auto) 0.3 Baso # (Auto) 0.0 Abs Immat Gran (auto) 0.02 Imm/Tot Granulo (auto) 0.2 Puncture Site ABG pH ABG pCO2 ABG pO2 ABG HCO3 ABG O2 Saturation ABG Base Excess Parvez Test O2 Liters/Min Sodium 142 Potassium 3.3 L Chloride 107 Carbon Dioxide 24.8 Anion Gap 13.5 BUN 14.0 Creatinine 0.65 L Est GFR ( Amer) >60 Est GFR (Non-Af Amer) >60 BUN/Creatinine Ratio 21.5 Glucose 93 Lactate Calcium 8.4 L Magnesium 1.7 L Total Bilirubin 0.6 AST 17 ALT 18 Alkaline Phosphatase 97 Troponin I High Sens Total Protein 6.1 L Albumin 2.1 L Globulin 4.0 Albumin/Globulin Ratio 0.5 Preliminary micro results at discharge 04/02/25 13:32 Blood Culture Result 2 - Preliminary Blood NO GROWTH AT 36-48 HOURS. FINAL TO FOLLOW. 04/02/25 12:35 Blood Culture Result 1 - Preliminary Blood NO GROWTH AT 36-48 HOURS. FINAL TO FOLLOW. Discharge Plan Discharge Disposition: er Acute [facility] Condition: Fair
[2025-04-05] MEDS: ACETAMINOPHEN 325 MG TABLET 650 MG PO (20:35)
[2025-04-05] MEDS: AZITHROMYCIN 500 MG in 0.9 % SODIUM CHLORIDE 250 ML 250 MG IV (20:39)
== END 2025-04-05 21:31 | disposition short-term general hospital (02) | DRG 871 ==
LOC: ER 12:09 → MS 17:06
PROVIDERS: Physician Assistant; Admitting Provider Student in an Organized Health Care Education/Training Program; Emergency Provider Emergency Medicine; PCP Nurse Practitioner; Visit Provider Student in an Organized Health Care Education/Training Program
DX: A41.9 Sepsis, unspecified organism (principal); J15.212 Pneumonia due to Methicillin resistant Staphylococcus aureus; J96.01 Acute respiratory failure with hypoxia; D84.9 Immunodeficiency, unspecified; C34.31 Malignant neoplasm of lower lobe, right bronchus or lung; E87.0 Hyperosmolality and hypernatremia; R65.20 Severe sepsis without septic shock; Z87.891 Personal history of nicotine dependence; Y95 Nosocomial condition; Z92.21 Personal history of antineoplastic chemotherapy; R54 Age-related physical debility; I10 Essential (primary) hypertension; Z85.828 Personal history of other malignant neoplasm of skin; G47.30 Sleep apnea, unspecified; Z86.16 Personal history of COVID-19; F41.8 Other specified anxiety disorders; Z95.0 Presence of cardiac pacemaker; Z87.01 Personal history of pneumonia (recurrent); Z92.3 Personal history of irradiation; D64.81 Anemia due to antineoplastic chemotherapy; D63.8 Anemia in other chronic diseases classified elsewhere; E87.6 Hypokalemia
CPT/HCPCS: 36415; 36430; 36600; 71045; 71275; 74177; 80053; 80202; 82607; 82728; 82746; 82805; 83540; 83550; 83605; 83735; 83880; 84484; 85007; 85025; 85027; 85045; 86850; 86900; 86901; 86923; 87040; 87070; 87081; 87205; 87804; 87811; 93005; 93308; 93356; 94640; 94761; 94799; 96374; 97162; 97165; 97530; 97535; 99285; G0328; J0456; J1644; J2543; J2919; J3373; J3475; P9016; Q9967